=== PATIENT | male | born 1955 | race Caucasian/White ===

== ENCOUNTER 2016-11-12 07:09 | Day surgery (SDC) | payer OTHER ==
[~2016-11-12] VITALS: Ht 180.3 cm; Wt 100.9 kg
[~2016-11-12 07:09] MED LIST: 1-ME1LIQ PO; ATENOLO PO; ATOR40TA49 PO; BD I SC; CHLOR PO; COZA100T PO; EYE VITAMIN PO; FLEX10TA OR; GEMF600T PO; GLUC10TA3 PO; GLUCTES27 XX; LANTUSP SQ; LIPI40TA PO; METF-324 PO; TRAM50TA PO; VITA10004 PO
[2016-11-12 07:35] VITALS: BP 157/83; PULSE 80; RESP 20; TEMP 97.7; O2SAT 100
[2016-11-12] MEDS ORDERED: SODIUM CHLORIDE 0.9% 1000 ML IV SCH (07:45)
[2016-11-12] MEDS ORDERED: VANCOMYCIN 1000 MG/NS 250 ML - implanted port/tunneled catheter IV SCH ×2 (07:45)
[2016-11-12] MEDS ORDERED: LANTUS2P SQ (07:54)
[2016-11-12] MEDS ORDERED: TRAM50TA PO (07:54)
[2016-11-12] MEDS ORDERED: METF1000 PO (07:54)
[2016-11-12] MEDS ORDERED: LEVO50TA4 PO (07:54)
[2016-11-12] MEDS ORDERED: CYAN100025 PO (07:54)
[2016-11-12] MEDS ORDERED: OMEP20TA PO (07:54)
[2016-11-12] MEDS ORDERED: AMLO10TA2 PO (07:54)
[2016-11-12] MEDS ORDERED: VITA100064 PO (07:54)
[2016-11-12] MEDS ORDERED: ATOR40TA16 PO (07:54)
[2016-11-12] MEDS ORDERED: GLIP10TA6 PO (07:54)
[2016-11-12] MEDS ORDERED: LOSA100T PO (07:54)
[2016-11-12] MEDS ORDERED: LIDOCAINE 1%/EPINEPHrine 1:100,000 SOLN 20 ML VIAL ONE (08:52)
[2016-11-12] MEDS ORDERED: MIDAZOLAM HCL 5 MG/5 ML VIAL ONE (09:04)
[2016-11-12] MEDS ORDERED: fentaNYL CITRATE 250 MCG/5 ML AMP ONE (09:05)
[2016-11-12 09:45] VITALS: BP 132/72; PULSE 80; RESP 16; TEMP 97.6; O2SAT 94
[2016-11-12] MEDS ORDERED: SODIUM CHLORIDE 0.9% FLUSH 10 ML FLUSH IVF PRN (09:45)
--- NOTE | 2016-11-12 09:45 | PD.RAD ---
Post Procedure Progress Note Pre Procedure Diagnosis: (1) Squamous cell carcinoma (2) Parotid mass Post Procedure Diagnosis: (1) Parotid mass (2) Squamous cell carcinoma Procedure Date: Nov 12, 2016 Supervising Radiologist: Escobar Joiner Proceduralist/Assist: Kang Pompa RT(R), Other Anesthesia: Conscious Sedation Plan of Activity Patient to Unit: ROPU Patient Condition: Good Additional Comments: Right IJ port placed with tip at ACJ. See PACS Report for procedural detail/treatment Escobar Joiner MD Nov 12, 2016 09:44
[2016-11-12 10:00] VITALS: BP 116/70; PULSE 78; RESP 18; O2SAT 95
[2016-11-12 10:30] VITALS: BP 136/81; PULSE 76; RESP 20; O2SAT 99
--- NOTE | 2016-11-12 10:58 | RADRPT ---
EXAM DATE/TIME: 11/12/2016 09:14 [facility] COMPARISON: No previous studies available for comparison. INDICATIONS : Patient presents with parotid gland cancer in need of port placement for chemotherapy treatment. MEDICAL HISTORY : VT CAD HTN DM Hx of smoking Hep C SURGICAL HISTORY : Appy Liver biopsy ENCOUNTER: Initial ACUITY: 1 month PAIN SCORE: 0/10 LOCATION: N/A FLUORO TIME: 0.2 minutes IMAGE SERIES: 0 SEDATION TIME: 30 minutes ACCESS: Right internal jugular vein SEDATION: 1.) 3 mg midazolam (Versed) IV 2.) 150 mcg fentanyl (Sublimaze) IV Prophylactic antibiotics were administered with appropriate pre-procedure timing. Vancomycin within 2 hours of procedure, Ancef (or alternative) within 1 hour of procedure. DEVICE: 1. 8 Romanian single lumen Smart port CT w/ vortex PROCEDURE : 1. Continuous pulse oximetry and EKG monitoring. 2. Intravenous conscious sedation. 3. Ultrasound guidance for venous access. 4. Fluoroscopic guided implantable central venous port placement. The patient was placed supine. The neck was prepped in sterile fashion. Full sterile technique was u sed, including cap, mask, sterile gloves and gown, and a large sterile sheet. Hand hygiene and 2% ch lorhexidine Betadine was utilized per protocol for cutaneous antisepsis with appropriate dry time for site. The skin and subcutaneous tissues were infiltrated with local anesthetic solution. Under direct ultrasound guidance, central venous access was accomplished in the targeted vessel. The ultrasound images depicting access guidance were stored and saved to PACS for permanent record. A s ubcutaneous pocket was created using blunt dissection. The port was introduced to the pocket. The c atheter tubing was fed through a subcutaneous tunnel to the venotomy site. The catheter tubing was c ut to a suitable length and then was introduced through a valved Peel-Away sheath and positioned with catheter tubing tip at the cavo-atrial junction level. The pocket incision was closed with subcutic ular Vicryl suture. Steri-Strips were applied. The port was flushed and locked with heparin solutio n per protocol. Sterile dressing was applied to the site. The patient tolerated the procedure well. Conscious sedation was performed with the prescribed dosages and duration as above in the presence of an independent trained radiology nurse to assist in the monitoring of the patient. EKG and oximetry remained stable throughout the procedure. The patient tolerated the procedure well and there were no complications. The patient was sent to post anesthesia recovery in stable condition. CONCLUSION: Uncomplicated ultrasound and fluoroscopic guided implanted central venous port catheter placement as described in detail above. An 8 Romanian Power port was placed. Escobar Joiner MD on November 12, 2016 at 10:53 Board Certified Radiologist. This report was verified electronically.
[2016-11-12 11:00] VITALS: BP 122/73; PULSE 80; RESP 22; O2SAT 98
== END 2016-11-12 12:31 | disposition home or self-care (01) ==
LOC: HROP 07:09 → HRIP 07:09 → HROP 12:31
PROVIDERS: ATTEND Internal Medicine
DX: C07 Malignant neoplasm of parotid gland (principal)
CPT/HCPCS: 36561; 76937; 77001; 99152; 99153; C1788; C1894; J1642; J2250; J3010; J3370; J7030; J7050

== ENCOUNTER 2016-11-29 23:36 | Inpatient (IN) | payer OTHER, MEDICARE ==
[~2016-11-29] VITALS: Ht 180.3 cm; Wt 92.4 kg
[~2016-11-29 23:36] MED LIST changes: -1-ME1LIQ PO; +AMLO10TA2 PO; +ATOR40TA16 PO; -ATOR40TA49 PO; -BD I SC; -COZA100T PO; +CYAN100025 PO; -FLEX10TA OR; -GEMF600T PO; +GLIP10TA6 PO; -GLUC10TA3 PO; -GLUCTES27 XX; +LANTUS2P SQ; -LANTUSP SQ; +LEVO50TA4 PO; -LIPI40TA PO; +LOSA100T PO; -METF-324 PO; +METF1000 PO; +OMEP20TA PO; -VITA10004 PO; +VITA100064 PO
[2016-11-29 23:40] VITALS: BP 96/52; PULSE 90; RESP 20; TEMP 98.9; O2SAT 93
[2016-11-29 23:50] VITALS: RESP 22; O2SAT 93
[2016-11-30] VITALS (19 sets, daily range): BP systolic 83–120; BP diastolic 55–81; PULSE 80–114; RESP 18–30; TEMP 98.1–99.1; O2SAT 88–100
[2016-11-30] MEDS ORDERED: SODIUM CHLOR 0.9% 1000 ML INJ 1,000 ML IV ONE
--- NOTE | 2016-11-30 00:04 | PD ---
HPI Chief Complaint: Abdominal Pain Time Seen by Provider: 23:41 Travel History International Travel<30 days: No Contact w/Intl Traveler<30days: No Traveled to known affect area: No History of Present Illness HPI Unfortunate 61-year-old male with history of parotid cancer here with complaint of abdominal pain. Patient states that approximately one month ago he was diagnosed with a mass at the lower esophagus/upper stomach, GE junction. He has not had any further workup of this, but he presumes it is metastatic spread from his parotid cancer. He is not currently undergoing any chemotherapy. Patient states that pain in the epigastrium has been progressively worsening over the last several weeks. He has been having dysphasia and has not been able to tolerate anything to eat or drink now for the last 3 days. Patient is presyncopal upon standing, states that his legs give out underneath him when he walks. Per EMS patient extremely dry, febrile to 101, and hypotensive in the 80s and 90s. He was given 1500 mL normal saline bolus en route. PFSH Past Medical History Cancer: Yes (SCC LEFT SIDE OF FACE, esophageal) Cardiovascular Problems: Yes ([place]) High Cholesterol: Yes Coronary Artery Disease: Yes Diabetes: Yes Patient Takes Glucophage: Yes Diminished Hearing: No Endocrine: No Hepatitis: Yes (C [place] 1996) Hiatal Hernia: No Hypertension: Yes Immune Disorder: No Implanted Vascular Access Dvce: Yes (port r subclavian) Medical other: Yes (ARTHRITIS, CIRRHOSIS 1996) Musculoskeletal: No Neurologic: No Reproductive: No Respiratory: Yes (SOB) Immunizations Current: No Myocardial Infarction: Yes Thyroid Disease: No Triglycerides - High: Yes Past Surgical History Abdominal Surgery: Yes (APPEND., LIVER BIOPSY) Appendectomy: Yes Cardiac Surgery: No Ear Surgery: No Endocrine Surgery: No Eye Surgery: No Genitourinary Surgery: No Oral Surgery: No Pacemaker: No Thoracic Surgery: No Social History Alcohol Use: Yes (few beers few nights a week per pt) Tobacco Use: No (quit 1 week ago) Substance Use: No Allergies-Medications (Allergen,Severity, Reaction): Coded Allergies: Penicillin (Verified Allergy, Mild, Hives, 11/12/16) Reported Meds & Prescriptions Reported Meds & Active Scripts Active [atenolo/-50] 1 Tab PO DAILY Reported B-12 (Cyanocobalamin) 1,000 Mcg Subl 1,000 Mcg PO DAILY Vitamin D3 (Cholecalciferol) 1,000 Unit Tab 1,000 Units PO DAILY Tramadol (Tramadol HCl) 50 Mg Tab 50 Mg PO Q8H PRN Omeprazole 20 Mg Tab 20 Mg PO DAILY Levothyroxine (Levothyroxine Sodium) 50 Mcg Tab 50 Mcg PO DAILY Atorvastatin (Atorvastatin Calcium) 40 Mg Tab 40 Mg PO HS Amlodipine (Amlodipine Besylate) 10 Mg Tab 10 Mg PO DAILY Losartan (Losartan Potassium) 100 Mg Tab 100 Mg PO DAILY Metformin (Metformin HCl) 1,000 Mg Tab 1,000 Mg PO BIDPC With meals Glipizide 10 Mg Tab 20 Mg PO BIDAC Take 30 minutes before a meal Lantus Inj (Insulin Glargine) 1,000 Unit/10 Ml Vial 40 Units SQ HS [Eye Vitamin] 1 Tab PO DAILY Review of Systems Except as stated in HPI: all other systems reviewed are Neg Physical Exam Narrative GENERAL: Well-appearing male in mild respiratory distress SKIN: Focused skin assessment warm/dry. HEAD: Normocephalic. EYES: No scleral icterus. No injection or drainage. ENT: Left sided parotid cancer and associated deformity to the ear. No nasal bleeding or discharge. Mucous membranes extremely dry NECK: Supple CARDIOVASCULAR: Regular rate and rhythm. No murmur appreciated. Hypotensive with systolics in the 90s. RESPIRATORY: Mild respiratory distress with poor air movement and decreased breath sounds throughout GASTROINTESTINAL: Abdomen soft, epigastric tenderness to palpation without rebound or guarding MUSCULOSKELETAL: No obvious deformities. No edema. NEUROLOGICAL: Awake and alert. Normal speech. PSYCHIATRIC: Appropriate mood and affect; insight and judgment normal. Data Data Last Documented VS Vital Signs Date Time Temp Pulse Resp B/P Pulse Ox O2 Delivery O2 Flow Rate FiO2 11/29/16 23:50 22 93 Room Air 11/29/16 23:40 98.9 90 96/52 Orders Electrocardiogram (11/29/16 23:48) Complete Blood Count With Diff (11/29/16 23:48) Comprehensive Metabolic Panel (11/29/16 23:48) Lactic Acid Sepsis Protocol (11/29/16 23:48) Lipase (11/29/16 23:48) Troponin I (11/29/16 23:48) Urinalysis - C+S If Indicated (11/29/16 23:48) Blood Culture (11/29/16 23:48) Ecg Monitoring (11/29/16 23:48) Iv Access Insert/Monitor (11/29/16 23:48) Oximetry (11/29/16 23:48) Ct Pulmonary Angiogram (11/29/16 23:48) Sodium Chlor 0.9% 1000 Ml Inj (Ns 1000 M (11/30/16 00:00) Ct Abd/Pel W Iv Contrast(Rout) (11/29/16 23:56) Morphine Inj (Morphine Inj) (11/30/16 01:00) Potassium Chloride Eff (K-Lyte Cl Eff) (11/30/16 01:30) Iohexol 350 Inj (Omnipaque 350 Inj) (11/30/16 01:37) Urine Culture (11/30/16 01:15) Labs Laboratory Tests Test 11/30/16 11/30/16 11/30/16 00:00 00:06 01:15 White Blood Count 11.6 TH/MM3 Red Blood Count 3.46 MIL/MM3 Hemoglobin 9.7 GM/DL Hematocrit 28.7 % Mean Corpuscular Volume 82.9 FL Mean Corpuscular Hemoglobin 28.2 PG Mean Corpuscular Hemoglobin 34.0 % Concent Red Cell Distribution Width 15.3 % Platelet Count 106 TH/MM3 Mean Platelet Volume 9.5 FL Neutrophils (%) (Auto) 83.3 % Lymphocytes (%) (Auto) 9.0 % Monocytes (%) (Auto) 7.6 % Eosinophils (%) (Auto) 0.0 % Basophils (%) (Auto) 0.1 % Neutrophils # (Auto) 9.7 TH/MM3 Lymphocytes # (Auto) 1.0 TH/MM3 Monocytes # (Auto) 0.9 TH/MM3 Eosinophils # (Auto) 0.0 TH/MM3 Basophils # (Auto) 0.0 TH/MM3 CBC Comment DIFF FINAL Differential Comment Sodium Level 134 MEQ/L Potassium Level 2.7 MEQ/L Chloride Level 98 MEQ/L Carbon Dioxide Level 22.4 MEQ/L Anion Gap 14 MEQ/L Blood Urea Nitrogen 20 MG/DL Creatinine 1.64 MG/DL Estimat Glomerular Filtration 43 ML/MIN Rate Random Glucose 50 MG/DL Calcium Level 7.3 MG/DL Protein Corrected Calcium 7.7 MG/DL Total Bilirubin 0.5 MG/DL Aspartate Amino Transf 37 U/L (AST/SGOT) Alanine Aminotransferase 30 U/L (ALT/SGPT) Alkaline Phosphatase 67 U/L Troponin I 3.12 NG/ML Total Protein 6.4 GM/DL Albumin 2.6 GM/DL Lipase 150 U/L Lactic Acid Level 3.5 mmol/L Urine Color YELLOW Urine Turbidity HAZY Urine pH 6.0 Urine Specific [place] 1.017 Urine Protein 100 mg/dL Urine Glucose (UA) NEG mg/dL Urine Ketones NEG mg/dL Urine Occult Blood TRACE Urine Nitrite NEG Urine Bilirubin NEG Urine Urobilinogen LESS THAN 2.0 MG/DL Urine Leukocyte Esterase NEG Urine RBC 1 /hpf Urine WBC 7 /hpf Urine Squamous Epithelial <1 /hpf Cells Urine Hyaline Casts 3 /lpf Urine Mucus FEW /lpf Microscopic Urinalysis Comment CATH-CULTURE IND MDM Medical Decision Making Medical Screen Exam Complete: Yes Emergency Medical Condition: Yes Medical Record Reviewed: Yes Differential Diagnosis 61-year-old male with parotid cancer and mass diagnosed at the GE junction, here with progressive abdominal pain in the epigastric region and dysphasia times several weeks worsening over the last 3 days. Febrile per EMS but not febrile here. Patient was however hypotensive and mucous membranes are extremely dry. Differential includes dehydration, renal insufficiency/failure, electrolyte abnormality, sepsis, metastatic spread, esophageal stricture, UTI, bacteremia. Patient denies any dyspnea, but is certainly dyspneic on exam. History of smoking, states he quit one week ago. No wheezing noted that with his underlying cancer concern for pulmonary embolism as he is also borderline hypoxic. Narrative Course Patient placed on monitor, IV established and blood obtained. Given 1 L normal saline bolus to add to the 1500 mL already received per EMS, 4 mg morphine. Twelve-lead EKG showed sinus rhythm without notable ST or T-wave abnormalities and normal intervals. CBC, CMP, lipase, troponin, lactate, urinalysis and blood cultures notable for hemoglobin 9.7. This is down from 15.7 but that was obtained 3 years ago. I do not have a more recent prior with which to compare. Patient denies any bleeding, dark tarry stools. Potassium 2.7, replaced a 75 mEq orally. BUN 20, cranial 1.64. Lactate 3.5. Patient empirically covered with vancomycin and Zosyn. Troponin elevated at 3.12, again no EKG changes. CT pulmonary angiogram and CT of the abdomen and pelvis showed no evidence of PE. Abnormal distal esophagus consistent with carcinoma. Patient will be admitted for further management, potential endoscopy versus G-tube placement as he is not able to tolerate any food or liquids. Diagnosis Primary Impression: Esophageal carcinoma Additional Impressions: Anemia Qualified Code: D64.9 - Anemia, unspecified type Hypokalemia Renal insufficiency Lactic acidosis Elevated troponin Dehydration Admitting Information Admitting Physician Requests: Admit Rosanna Francisco MD Nov 30, 2016 00:04
[2016-11-30 00:45] LABS: AUTOMATED NEUTROPHIL # 9.7 TH/MM3 (1.8-7.7); BASOPHIL % 0.1 % (0.0-2.0); HEMATOCRIT 28.7 % (39.0-51.0); HEMO FLAGS DIFF FINAL; MEAN CELL VOLUME 82.9 FL (80.0-100.0); MEAN CORPUSCULAR HEMOGLOBIN 28.2 PG (27.0-34.0); MONO % 7.6 % (0.0-8.0); NEUT % 83.3 % (16.0-70.0); PLATELET COUNT 106 TH/MM3 (150-450); RED BLOOD COUNT 3.46 MIL/MM3 (4.50-5.90); RED CELL DISTRIBUTION WIDTH 15.3 % (11.6-17.2); WHITE BLOOD COUNT 11.6 TH/MM3 (4.0-11.0)
[2016-11-30] MEDS ORDERED: MORPHINE SULFATE 8 MG/ML INJ IV PUSH ONE (01:00)
[2016-11-30 01:18] LABS: BICARBONATE 22.4 MEQ/L (21.0-32.0); CALCIUM-PROTEIN CORRECTED 7.7 MG/DL (8.5-10.1); TOTAL BILIRUBIN ADULT 0.5 MG/DL (0.2-1.0)
[2016-11-30 01:20] LABS: POTASSIUM 2.7 MEQ/L (3.5-5.1)
[2016-11-30] MEDS ORDERED: POTASSIUM CHLORIDE 25 MEQ EFFERVESCENT TAB PO ONE (01:30)
[2016-11-30] MEDS ORDERED: IOHEXOL 350 MG/ML 10 ML VIAL (for RAD DIAG) IV ONE (01:37)
[2016-11-30 01:39] LABS: BLOOD, URINE TRACE (NEG); COMMENT (UR) CATH-CULTURE IND; CULTURE IF INDICATED CATH CULTURE IND; GLUCOSE,URINE NEG (NEG); HYALINE CAST, URINE 3 /lpf (RARE); KETONE, URINE NEG (NEG); MUCUS URINE FEW /lpf (OCC); NITRITE,URINE NEG (NEG); SQUAMOUS EPITHELIAL CELL URINE <1 /hpf (0-5); URINE COLOR YELLOW (YELLW/STRAW)
--- NOTE | 2016-11-30 02:00 | RADRPT ---
EXAM DATE/TIME: 11/30/2016 01:35 [facility] COMPARISON: CT ABDOMEN & PELVIS W CONTRAST, November 30, 2016, 1:35. INDICATIONS : Chest pain; rule out pulmonary embolus. IV CONTRAST: 75 cc Omnipaque 350 (iohexol) IV ; Cumulative dose for multiple exams. RADIATION DOSE: 23.50 CTDIvol (mGy) MEDICAL HISTORY : Carcinoma, esophageal. Myocardial infarction. Hepatitis C.Cirrhosis, Hypertension SURGICAL HISTORY : Appendectomy. ENCOUNTER: Initial ACUITY: 1 day PAIN SCALE: 3/10 LOCATION: chest TECHNIQUE: Volumetric scanning of the chest was performed using a pulmonary embolism protocol MIP images were re constructed. Using automated exposure control and adjustment of the mA and/or kV according to patien t size, radiation dose was kept as low as reasonably achievable to obtain optimal diagnostic quality images. DICOM format image data is available electronically for review and comparison. Follow-up recommendations for incidentally detected pulmonary nodules are based at a minimum on nodul e size and patient risk factors according to Fleischner Society Guidelines. FINDINGS: There are mild linear atelectatic changes versus scarring in the lower lobes. There is no consolidati on or effusion. No adenopathy. There is no evidence for pulmonary embolism. The patient has a history of esophageal carcinoma and there is marked abnormal eccentric circumferential soft tissue but thick ening of the mid to distal esophagus with luminal narrowing seen best on axial image 81. This would b e consistent with the patient's carcinoma. CONCLUSION: 1. No evidence for pulmonary embolism or pneumonia. 2. Abnormal appearance of the esophagus with and soft tissue consistent with the history of carcinoma . Erik Simon MD on November 30, 2016 at 1:56 Board Certified Radiologist. This report was verified electronically.
--- NOTE | 2016-11-30 02:02 | RADRPT ---
EXAM DATE/TIME: 11/30/2016 01:35 [facility] COMPARISON: CT PULMONARY ANGIOGRAM, November 30, 2016, 1:35. INDICATIONS : Abdominal pain; history of esophageal cancer. IV CONTRAST: 75 cc Omnipaque 350 (iohexol) IV ; Cumulative dose for multiple exams. ORAL CONTRAST: No oral contrast ingested. RADIATION DOSE: 16.19 CTDIvol (mGy) MEDICAL HISTORY : Carcinoma, esophageal. Myocardial infarction. Hepatitis C.Cirrhosis, Hypertension SURGICAL HISTORY : Appendectomy. ENCOUNTER: Initial ACUITY: 1 day PAIN SCALE: 5/10 LOCATION: abdomen TECHNIQUE: Volumetric scanning of the abdomen and pelvis was performed. Using automated exposure control and ad justment of the mA and/or kV according to patient size, radiation dose was kept as low as reasonably achievable to obtain optimal diagnostic quality images. DICOM format image data is available electro nically for review and comparison. FINDINGS: There is linear scarring versus atelectasis at the bases. Osseous structures demonstrate degenerative changes of the spine. There is marked eccentric soft tissue thickening of the distal esophagus with prominent soft tissue measuring 2.7 x 4.5 cm in AP and transverse dimension on image 9 posterior esop hagus with marked luminal narrowing. There is noted extending to the esophagogastric junction and con sistent with the patient's esophageal carcinoma. Slightly nodular hepatic contour consistent with his tory of cirrhosis. Mild splenomegaly at 14 cm. Pancreas, gallbladder, kidneys, adrenal glands are unr emarkable. Atherosclerotic calcification of the aorta and iliac vessels. Prostatic calcifications are noted. Urinary bladder unremarkable. A moderate amount of stool in the colon is present without evid ence of obstruction. There is no adenopathy or aneurysm. Atherosclerotic calcifications of the aorta are present. CONCLUSION: 1. Markedly abnormal appearance of the distal esophagus consistent with the history of esophageal car cinoma. 2. Atherosclerotic calcifications of the aorta and iliac vessels. 3. Cirrhotic appearance to the liver with a mildly nodular contour present. Erik Simon MD on November 30, 2016 at 1:59 Board Certified Radiologist. This report was verified electronically.
[2016-11-30] MEDS ORDERED: SODIUM CHLOR 0.9% 1000 ML INJ 1,000 ML IV SCH ×2 (02:33→13:42)
[2016-11-30 02:40] LABS: LACTIC ACID GHOST NOT REPORTABLE
[2016-11-30] MEDS ORDERED: SENNOSIDES 8.6 MG TAB PO PRN (02:45)
[2016-11-30] MEDS ORDERED: MAGNESIUM HYDROXIDE SUSP 30 ML CUP PO PRN (02:45)
[2016-11-30] MEDS ORDERED: CALCIUM GLUCONATE 10% 1 GM/10 ML VIAL IV PUSH ONE (02:45)
[2016-11-30] MEDS ORDERED: ONDANSETRON HCL 4 MG/2 ML VIAL IVP PRN (02:45)
[2016-11-30] MEDS ORDERED: LACTULOSE SYRUP 20 GM/30 ML CUP PO PRN (02:45)
[2016-11-30] MEDS ORDERED: BISACODYL 10 MG SUPP RECTAL PRN (02:45)
[2016-11-30] MEDS ORDERED: ACETAMINOPHEN 325 MG TAB PO PRN (02:45)
--- NOTE | 2016-11-30 03:53 | HHI.HP ---
[facility] Primary [facility] Physician Landon Abad MD Admission Diagnosis elevated trop, dysphagia, GE carcinoma Diagnoses: (1) Intractable abdominal pain Diagnosis: Principal (2) Esophageal carcinoma Diagnosis: Principal (3) SCC (squamous cell carcinoma) Diagnosis: Principal (4) Elevated troponin Diagnosis: Principal (5) Renal insufficiency Diagnosis: Principal (6) Dehydration Diagnosis: Principal (7) Lactic acidosis Diagnosis: Principal (8) Hypokalemia Diagnosis: Principal (9) Tobacco abuse Diagnosis: Principal (10) DM (diabetes mellitus) Diagnosis: Principal Travel History International Travel<30 Days: No Contact w/Intl Traveler <30 Da: No Traveled to Known Affected Are: No History of Present Illness This is a 61-year-old male with a PMH of HTN, Hyperlipidemia, CAD, DM, Squamous Cell CA of Parotid Gland and Esophageal Mass who was brought to the ER by EMS with complaints of abdominal pain x3 wks in addition to difficulty taking PO. Pt significantly poor historian, unable to tell me which physicians he follows w / or what his plan of care is regarding underlying CA. Believes he is supposed to start Chemo/Radiation but is unsure when, doesn't recall next follow up appointment. Per review of records, pt evaluated by Dr. 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 Roberson. Also underwent PET CT w/ evidence of hypermetabolic esophageal mass and referral to GI for EGD/EUS. Per patient, he' s had progressive difficulty swallowing x3 wks w/ worsening abdominal pain. Unable to swallow solids at this time, liquids ok. Denies fever, chills, diarrhea, chest pain or cough. On EMS arrival, pt noted to be hypotensive w/ BP 80's, s/p IVF w/ improvement in BP, Temp 101. On arrival, BP 96 or 52, HR 90 , O2 sat 93% on RA, Afebrile. WBC 11.6. Platelets 106, previously 100 on . K+ 2.7. Creatinine 1.64, previously 0.58 on 08/29/13. Lactic Acid 3.5. Trop 3.12. EKG w/ no acute ischemia. U/a negative. CT Abd/Pelvis w/ markedly abnormal appearance distal esophagus consistent with history of esophageal CA. CTA Pulm negative for PE. Review of Systems Except as stated in HPI: all other systems reviewed are Neg ROS: 14 point review of systems otherwise negative. Past Family Social History Past Medical History PMH: HTN, Hyperlipidemia, CAD, DM, Squamous Cell CA of Parotid Gland and Esophageal Mass Past Surgical History PAST SURGICAL HISTORY: Appendectomy, Liver Biopsy, Port Placement Allergies: Coded Allergies: Penicillin (Verified Allergy, Mild, Hives, 11/12/16) Family History PAST FAMILY HISTORY: Reviewed. No h/o DM or CAD Social History PAST SOCIAL HISTORY: Drinks occasionally. Smokes 1ppd. Negative for drugs. Physical Exam Vital Signs Vital Signs Date Time Temp Pulse Resp B/P Pulse Ox O2 Delivery O2 Flow Rate FiO2 11/30/16 02:09 80 18 101/55 97 Room Air 11/29/16 23:50 22 93 Room Air 11/29/16 23:40 98.9 90 20 96/52 93 Physical Exam PE: GENERAL: Middle-aged white male in no acute distress. HEENT: PERRLA, EOMI. No scleral icterus or conjunctival pallor. No lid lag or facial droop. Left facial deformity CARDIOVASCULAR: Regular rate and rhythm. No obvious murmurs to auscultation. No chest tenderness to palpation. RESPIRATORY: No obvious rhonchi or wheezing. Clear to auscultation. Breath sounds equal bilaterally. GASTROINTESTINAL: Abdomen soft, epigastric tenderness to palpation, nondistended. BS normal. MUSCULOSKELETAL: Extremities without clubbing, cyanosis, or edema. No obvious deformities. NEUROLOGICAL: Awake, alert and oriented x4. No focal neurologic deficits. Moving both upper and lower extremities spontaneously. Laboratory Laboratory Tests Test 11/30/16 11/30/16 11/30/16 00:00 00:06 01:15 White Blood Count 11.6 Red Blood Count 3.46 Hemoglobin 9.7 Hematocrit 28.7 Mean Corpuscular Volume 82.9 Mean Corpuscular Hemoglobin 28.2 Mean Corpuscular Hemoglobin 34.0 Concent Red Cell Distribution Width 15.3 Platelet Count 106 Mean Platelet Volume 9.5 Neutrophils (%) (Auto) 83.3 Lymphocytes (%) (Auto) 9.0 Monocytes (%) (Auto) 7.6 Eosinophils (%) (Auto) 0.0 Basophils (%) (Auto) 0.1 Neutrophils # (Auto) 9.7 Lymphocytes # (Auto) 1.0 Monocytes # (Auto) 0.9 Eosinophils # (Auto) 0.0 Basophils # (Auto) 0.0 CBC Comment DIFF FINAL Differential Comment Sodium Level 134 Potassium Level 2.7 Chloride Level 98 Carbon Dioxide Level 22.4 Anion Gap 14 Blood Urea Nitrogen 20 Creatinine 1.64 Estimat Glomerular Filtration 43 Rate Random Glucose 50 Calcium Level 7.3 Protein Corrected Calcium 7.7 Total Bilirubin 0.5 Aspartate Amino Transf 37 (AST/SGOT) Alanine Aminotransferase 30 (ALT/SGPT) Alkaline Phosphatase 67 Troponin I 3.12 Total Protein 6.4 Albumin 2.6 Lipase 150 Lactic Acid Level 3.5 Urine Color YELLOW Urine Turbidity HAZY Urine pH 6.0 Urine Specific [place] 1.017 Urine Protein 100 Urine Glucose (UA) NEG Urine Ketones NEG Urine Occult Blood TRACE Urine Nitrite NEG Urine Bilirubin NEG Urine Urobilinogen LESS THAN 2.0 Urine Leukocyte Esterase NEG Urine RBC 1 Urine WBC 7 Urine Squamous Epithelial <1 Cells Urine Hyaline Casts 3 Urine Mucus FEW Microscopic Urinalysis Comment CATH-CULTURE IND Date/Time Procedure Status Source Growth 11/30/16 01:15 Urine Culture Received Urine Catheterized Urine Pending 11/30/16 00:05 Aerobic Blood Culture Received Blood Peripheral Pending 11/30/16 00:05 Anaerobic Blood Culture Received Blood Peripheral Pending Result Diagram: 11/30/16 0000 11/30/16 0000 Assessment and Plan Problem List: (1) Intractable abdominal pain ICD Code: R10.9 Status: Acute (2) Esophageal carcinoma ICD Code: C15.9 Status: Acute (3) SCC (squamous cell carcinoma) ICD Code: C44.92 Status: Acute (4) Hypokalemia ICD Code: E87.6 Status: Acute (5) Lactic acidosis ICD Code: E87.2 Status: Acute (6) Renal insufficiency ICD Code: N28.9 Status: Acute (7) Elevated troponin ICD Code: R74.8 Status: Acute (8) DM (diabetes mellitus) ICD Code: E11.9 Status: Acute (9) Tobacco abuse ICD Code: Z72.0 Status: Acute Assessment and Plan A/P: 1. Intractable Abd Pain: x3 wks, w/ associated dysphagia, unable to swallow solids, likely secondary to recently diagnosed esophageal mass w/ suspected malignancy. CT Abd/Pelvis w/ markedly abnormal appearance of the distal esophagus consistent w/ h/o esophageal carcinoma, images reviewed by me. Diet as tolerated, may need to consider PEG tube placement in light of underlying CA. Protonix IV. Analgesics/antiemetics as needed. 2. SCC: w/ Parotid Gland involvement, s/p parotidectomy and neck dissection at [facility], now w/ recurrence, s/p eval by Dr. Bell and Dr. Roberson for concurrent Chemo/Radiation, also pending dental extraction. 3. Esophageal CA: Outpatient PET CT w/ findings worrisome for Esophageal CA, referred to GI for EGD/EUS. Follows w/ Dr. Bell, will consult for further recommendations. 4. Elevated Trop: Trop 3.13, EKG w/ no acute ischemia, no c/o chest pain, only mild SOB. CTA Pulm negative for PE, images reviewed by me. Check serial cardiac enzymes, Cardiology for further eval. Hold anticoagulation at this time in light of thrombocytopenia and esophageal mass w/ high risk for bleed. Hold B-gutierrez in light of hypotension. 5. Lactic Acidosis: Lactate 3.5, repeat 2.7, likely secondary to dehydration from decreased PO intake, no evidence of Sepsis. IVF for hydration. 6. Hypokalemia: K+ 2.7, s/p replacement in ER, will recheck and replace as needed. 7. Renal Insufficiency: CLARA. Creatinine 1.64, previously 0.58 on 08/29/13. U/ a w/ mild bacteriuria. IVF for hydration, repeat labs in am. 8. DM: Sliding scale w/ Accu-Cheks. Hold Metformin in light of renal insufficiency. Hold Glipizide/Insulin in light of decreased PO intake. 9. Tobacco Abuse: Pt counselled. Ativan/NicoDerm prn if needed. 10. DVT Prophylaxis: SCD/Teds. 11. Social work for d/c planning as needed. 12. Case discussed w/ ER physician at length. Physician Certification 2 Midnight Certification Type: Admission for Inpatient Services Order for Inpatient Services The services are ordered in accordance with Medicare regulations or non- Medicare payer requirements, as applicable. In the case of services not specified as inpatient-only, they are appropriately provided as inpatient services in accordance with the 2-midnight benchmark. Estimated LOS (days): 2 days is the estimated time the patient will need to remain in the hospital, assuming treatment plan goals are met and no additional complications. Post-Hospital Plan: Not yet determined Ericka Reece MD Nov 30, 2016 03:53
[2016-11-30] MEDS ORDERED: CHLORHEXIDINE GLUCONATE 2 % 1 PACK (2 CLOTHS)(extra cloths) TOPICAL PRN (05:15)
[2016-11-30] MEDS: PANTOPRAZOLE SODIUM 40 MG VIAL IV PUSH SCH ×2 (08:30→21:49)
[2016-11-30] MEDS: SODIUM CHLORIDE 0.9% FLUSH 10 ML FLUSH IV FLUSH SCH ×3 (08:30→21:49)
[2016-11-30] MEDS: DOCUSATE SODIUM 50 MG/SENNA 8.6 MG TAB PO SCH ×2 (08:30→21:00)
--- NOTE | 2016-11-30 11:11 | MB ---
cc: MINNA PRADO MD DATE OF CONSULTATION: 11/30/2016 REASON FOR CONSULTATION Elevated troponin. HISTORY OF PRESENT ILLNESS The patient is a pleasant 61-year-old gentleman who presents with weakness and multiple falls. He does have a history of head and neck cancer but the patient is unclear about the details of ongoing treatment or prognosis. His initial labs are notable for potassium of 2.7, creatinine 1.64 and a troponin of 3.12, this has since gone up to 12.3. I was not informed of the patient's significant elevated troponins until I arrived at bedside. The patient does have slight lateral ST elevation seen on the monitor and when I noticed this I asked him if he had any chest pain. He does admit to having a fairly vague "chest tightness" in the left upper chest which he attributes to being in bed for the duration of his hospitalization thus far. He says that this is a new symptom since he arrived at the hospital yesterday night. He does appear relatively comfortable and describes his pain as fairly mild. He denies other symptoms such as shortness of breath, lightheaded, dizziness. He does have difficulty with eating but is able to swallow pills. PAST MEDICAL HISTORY 1. Hypertension. 2. Hyperlipidemia. 3. Chart history of coronary artery disease, although the patient denies. 4. Diabetes. 5. Squamous cell cancer of the parotid gland. 6. Esophageal mass. CURRENT MEDICATIONS 1. Senna. 2. Colace. 3. Protonix 40 mg IV q. 12. ALLERGIES PENICILLIN. PHYSICAL EXAMINATION VITAL SIGNS: Afebrile, pulse 89, respiratory rate 24, BP 98/56, sating 98% on room air. GENERAL: Pleasant appearing gentleman, perhaps very mildly diaphoretic. NECK: No JVD. LUNGS: Clear to auscultation bilaterally. CARDIOVASCULAR: Regular rate and rhythm. No murmurs appreciated. ABDOMEN: Benign. EXTREMITIES: No edema. LABORATORY DATA Notable findings were detailed above. Also notable, white count 11.6, hematocrit 28.7, down from 45 and platelets 106. EKG On admission showed sinus rhythm with no significant ST or T-wave changes but the subsequent EKG did show very slight high lateral ST elevation concomitant with the patient's description of chest pain. ASSESSMENT I have discussed this at length with the patient and also with the maintainer central office, the challenge here is the patient's significant medical history including head and neck cancer, anemia, renal dysfunction. I will discuss the case further with interventional radiologist and determine whether it is appropriate to pursue an invasive aggressive course versus conservative medical therapy. Further recommendations will be based on his course. MD KATEY Foster/ORI /10:22 AM /10:53 AM
[2016-11-30] MEDS ORDERED: ASPIRIN 81 MG CHEW TAB PO ONE (12:00)
[2016-11-30] MEDS ORDERED: HEPARIN SODIUM - IV 10,000 UNITS/10 ML VIAL IV PRN ×2 (12:15)
[2016-11-30] MEDS ORDERED: HEPARIN 25,000 UNITS-D5W 250 ML - PREMIX IV SCH (12:15)
[2016-11-30] MEDS ORDERED: HEPARIN SODIUM - IV 10,000 UNITS/10 ML VIAL IV ONE (12:15)
[2016-11-30 12:30] LABS: HEMATOCRIT 30.1 % (39.0-51.0); MEAN CELL VOLUME 83.4 FL (80.0-100.0); MEAN CORPUSCULAR HEMOGLOBIN 27.9 PG (27.0-34.0); MEAN CORPUSCULAR HGB CONC 33.5 % (32.0-36.0); PLATELET COUNT 110 TH/MM3 (150-450); RED BLOOD COUNT 3.62 MIL/MM3 (4.50-5.90); RED CELL DISTRIBUTION WIDTH 15.3 % (11.6-17.2); REVIEW FLAG FINAL; WHITE BLOOD COUNT 10.5 TH/MM3 (4.0-11.0)
[2016-11-30] MEDS ORDERED: IOHEXOL 350 MG/ML 100 ML BTL (for Cath Lab) OTHER ONE (12:30)
[2016-11-30] MEDS ORDERED: MIDAZOLAM HCL 2 MG/2 ML VIAL ONE (12:36)
[2016-11-30] MEDS ORDERED: HEPARIN-NS/PF INJ 500 ML ONE (12:36)
[2016-11-30 12:40] LABS: APTT (PATIENT) 31.3 SEC (24.3-30.1); INTERNATIONAL NORMALIZED RATIO 1.2 RATIO; PROTHROMBIN TIME - PATIENT 12.8 SEC (9.8-11.6)
--- NOTE | 2016-11-30 12:51 | MB ---
cc: DARRYL MUSTAFA DATE OF CONSULTATION: 11/30/2016. REASON FOR CONSULTATION: Non-ST elevation DE. 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 He also admits to chest pain. On further evaluation, EKG showed S-T segments suggestive of myocardial injury. Cardiac markers trended up from 3.1 to 12 this morning. Thus, cardiology Dr. Quinonez was consulted for further recommendations. In addition, the patient had recurring chest pain this morning. He was started on heparin drip, aspirin, beta blockers and consulted to interventional cardiology for possible percutaneous coronary intervention. He denies fevers, chills, nausea, vomiting or diarrhea, shortness of breath, lightheadedness, dizziness. He reports difficulty with eating but he is able to swallow pills. REVIEW OF SYSTEMS: Negative except for what is mentioned in the history of present illness. PAST MEDICAL HISTORY: 1. Hypertension. 2. Hyperlipidemia. 3. Diabetes. 4. Esophageal mass. 5. Squamous cell carcinoma of the parathyroid gland. 6. Smoker. CARDIAC MEDICATIONS AT HOME: 1. Amlodipine 10 milligrams p.o. daily. 2. Lipitor 40 milligrams p.o. daily. 3. Losartan 100 milligrams p.o. daily. 4. Atenolol 50 milligrams p.o. daily. ALLERGIES: PENICILLIN. FAMILY HISTORY: Noncontributory. SOCIAL HISTORY: He quit smoking recently. He denies alcohol use or illicit drug use. PHYSICAL EXAMINATION: VITAL SIGNS: Temperature 98, respiratory rate 20, pulse 91, blood pressure 101/ 55, 02 saturation 97% 2 L NC. GENERAL: He is awake, alert and oriented times three complaining of mild chest pain. NECK: No jugular venous distention. LUNGS: Clear to auscultation bilaterally. No wheezes, rales or rhonchi. HEART: Regular rate and rhythm. There are no murmurs, rubs or gallops. ABDOMEN: Benign. EXTREMITIES: There is no cyanosis or edema. Pulses throughout. DATA: CBC: Hemoglobin 9.7, hematocrit 498 and platelet count 106,000. Chemistries: Sodium 134, potassium 2.7, BUN 20, creatinine 1.64. Troponin is 3.1 and 12.3. Lactic acid 2.5. Calcium 7.3. Urinalysis: There is protein. Microbiology pending. IMAGING STUDIES: Abdominal CT: There is a mass in the esophagus consistent with esophageal carcinoma. CT of the chest: There is no evidence of PE. ASSESSMENT: 61-year-old male with the above history and findings who presented with a non-S- T-elevation DE and past medical history significant for esophageal mass and head and neck cancer. According to Dr. Bell, who knows the patient well, the patient has a good prognosis > 1 year and he is awaiting to start chemotherapy and radiation. He currently remains hemodynamically stable but continues to complaint on chest discomfort despite medical therapy. I think at this time it would be reasonable to take him to the cardiac catheterization lab to assess coronary anatomy. The risks and benefits of left heart catheterization including but not limited to bleeding, infection, acute kidney injury, neurovascular trauma, emergent bypass surgery, stroke and have been explained to the patient. The patient understands the risks and is willing to proceed. Thank you for the opportunity to take part in the care of this patient. Further therapy to be determined. MD CINDY Benavidez/UZAIR /12:24 PM /12:46 PM VON
[2016-11-30] MEDS ORDERED: DEXTROSE 50% IN WATER 50 ML SYRINGE ONE (12:53)
--- NOTE | 2016-11-30 12:56 | EKG ---
Date Performed: 11/30/2016 Time Performed: 00:14:49 PTAGE: 61 years EKG: Sinus rhythm BORDERLINE LEFT AXIS DEVIATION Compared to prior tracing no significant change BORDERLINE ECG PREVIOUS TRACING : 09/11/2011 08.32 DOCTOR: Luis Enrique Quinonez Interpretating Date/Time 11/30/2016 12:54:35
--- NOTE | 2016-11-30 12:57 | EKG ---
Date Performed: 11/30/2016 Time Performed: 09:59:50 PTAGE: 61 years EKG: Sinus rhythm BORDERLINE LEFT AXIS DEVIATION ST ELEVATION CONSISTENT WITH INJURY, PERICARDITIS, OR EARLY REPOLARIZ ATION Compared to previous tracing, there is minimal lateral ST elevation. Clinical correlation is re commended ABNORMAL ECG PREVIOUS TRACING : 11/30/2016 00.14 DOCTOR: Luis Enrique Quinonez Interpretating Date/Time 11/30/2016 12:55:57
[2016-11-30] MEDS ORDERED: PHENYLEPHRINE HCL 10 MG/ML VIAL ONE (13:04)
[2016-11-30] MEDS ORDERED: CLOPIDOGREL 300 MG TAB ONE (13:25)
--- NOTE | 2016-11-30 13:37 | CATHPROC ---
[email or web address] HIS Report Study Information Study Number Admission Scheduled Start Study Start [id number] Nov 30 2016 2:20AM 11/30/2016 Nov 30 2016 12:35PM [place] Service Cardiac Catheterization Admit Source Facility Department Other [facility] - Gym Supervisor Physician and Clinical Staff Initial MD Murillo, Miguel Dam Tender Anam Wall,ROMAN Dam Tender Stacy Welch RN Recorder Erin Mazariegos,RT(R) Scrub Alicia, Chacha,LEANDRA TECH2 Procedures Performed Procedure Location (Site) Vessel Name Coronary Angiograms LCA Left Coronary Coronary Angiograms RCA Right Coronary L Heart Cath PTCA CIRC Prox CIRC PTCA ADD ON'S Stent CIRC Prox CIRC Wire insertion Fem Art (right) Femoral Art Equipment Time Torpedo Shooter Description Size Mfg Part Number Used/Scraped COPILOT VALVE, BLEEDBACK [id number] 13:07 [employer] Used CONTROL *[id number] PERCLOSE, PRO GLIDE CLOSER 13:29 GARCIA [employer] C[employer] FR 6 [id number] *[id number] Used [employer]ICE [employer] 13:07 SHEATH, FR6 11CM FR 6 11CM [id number] Used [employer] 13:07 SHEATH, FR6 11CM FR 6 11CM [id number] Used INC. TRANSDUCER, TRUWAVE [id number] 12:52 HOLGUIN WELCH * Used W/STOCKCOCK *[id number]- INTRODUCER SET, 12:52 [employer]OOK INC. FR 5 SC-NT-U-SST Used MICROPUNCTURE, STIFFENED *[id number] [id number] *[id number] 534-521T *[id number] 12:52 [employer] INDUSTRIES PACK, CCL CUSTOM * Used *[id number] 13:12 [employer] BALLOON, 2.5 X 12MM EUPHORA 12MM Used *[id number] BALLOON, 3.0 X 12MM NC [id number] 13:18 [employer]TRONIC 12MM Used EUPHORA *[id number] 13:16 [employer] STENT, 2.75 18 INTEGRITY 2.75 18 Used *[id number] [id number] 13:24 [employer] STENT, 3.0 12 INTEGRITY 3.0 12 Used *[id number] 13:07 [employer]TR[employer]IC/AVE EBU 3.5 Z2 GUIDE CATHETER FR 6 Used *[id number] 13:13 [employer] 30 FARRAH INDEFLATOR Used *[id number] 13:06 [employer] MEDICAL SHEATH, FR6.5 PRELUDE 11CM FR 6.5 038ACT Used *[id number] 12:52 [employer] MEDICAL WIRE, 3MMJ .035 180CM 180CM Used *[id number] 12:52 NAMIC MANIFOLD, 4 PORT * Used *[id number] 13:13 [employer]COMED OMNIPAQUE, 300 MG, 50ML 50ML [id number] Used 12:52 [employer]COMED OMNIPAQUE, 350 MG, 150ML 150ML [id number] Used [id number] 12:52 [facility] BLANKET,WARM AIR CCL * Used *[id number] 12:52 [employer] MEDICAL SHEATH, FR5 TERUMO (10CM) FR 5 [id number] Used WIRE, RUNTHROUGH NS FLOPPY [id number] 13:06 TERUMO MEDICAL 180CM Used .014 180CM *[id number] Equipment Model, Serial, Lot Number and Expiration Data Description Model Number Serial Number Lot Number Expiration Date PERCLOSE, PRO GLIDE CLOSER [id number] 08-15-2018 DEVICE STENT, 2.75 18 INTEGRITY [id number] 12-31-2016 STENT, 3.0 12 INTEGRITY [id number] 07-09-2018 History: Allergies Allergy Reaction Penicillin Hives History: Risk Factors Family History of Hypertension Dyslipidemia Previous MO Previous Heart Failure Premature CAD Yes Yes Yes Yes No Prior Valve Prior PCI Prior CABG Surgery No No No Cerebrovascular Peripheral Artery Chronic Lung On Dialysis Diabetes Disease Disease Disease No No No Yes Yes History: Risk Factors Selection Items Current Smoker History: Symptoms/Diagnosis Selection Items SOB History: Stress Tests Stress or Imaging Studies Performed No History: Other Current Smoker Method Packs a Day Years Used Pack Years Yes Cigarettes 1 50 50 Labs Hgb (g/dl) Hct (%) RBC (MIL/MM3) WBC (l/cumm) Platelets (thousands) 11.60-17.00 35.00-51.00 4.00-5.90 4.00-11.00 150.00-450.00 10.1 30.1 3.6 10.5 110 Glucose (mg/dl) BUN (mg/dl) Creatinine (mg/dl) BUN:Creatinine (1:x) 74.00-106.00 7.00-18.00 0.50-1.30 10.00-20.00 50 20 1.6 12.5 Na (meq/l) K (meq/l) Cl (meq/l) CO2 (mmol/L) Ca (mg/dl) 136.00-145.00 3.50-5.10 98.00-107.00 21.00-32.00 8.50-10.10 134 2.7 98 22.4 7.3 PT (sec) PTT (sec) INR (PTT:PT) 9.80-11.60 24.30-30.10 0.90-1.10 12.8 31.3 1.2 Troponin I (ng/ml) CPK-MB (ng/ML) 0.02-0.05 0.50-3.60 3.12 Not Drawn Medication Medication Total Dose (Bolus/Oral) Medication Total Dosage/Unit 1% XYLOCAINE 20 mL HEPARIN 5000 units Medications (Bolus/Oral) Medication Time Given Dosage/Unit Administered By Reason 1% XYLOCAINE 11/30/2016 12:47:52 PM 20 mL Nelida-Miguel Vasquez 20 mL 1% XYLOCAINE given by Miguel Murillo in Right Groin via Subcutaneous. HEPARIN 11/30/2016 1:07:22 PM 5000 units Stacy Welch 5000 units HEPARIN given in lab by Stacy Welch RN via Peripheral IV. Medication (Drip) Medication Time Given Dosage/Unit Concentration/Unit Diluent (ml) Solution IV Bolus 11/30/2016 12:59:25 PM 25 mL (Bolus) D5W .45 NaCl 25 mL (Bolus) IV Bolus given in lab by Anam Wall RN in Left Forearm via Peripheral IV. Using D5W .45 NaCl. D50 IV Solutions 11/30/2016 12:39:34 PM 0 mL (IV) 1000 NaCl .9 Patient arrived on IV Solutions in Left Forearm via Peripheral IV. Pump/Drip Flow = 20 ml/hr using Na Cl .9. LIZETTE-SYNEPHRINE 11/30/2016 1:04:01 PM 100 mcg/min 10 mg 250 D5W 100 mcg/min LIZETTE-SYNEPHRINE given in lab by Anam Wall RN via Peripheral IV. Pump/Drip Flow = 150 ml/hr using D5W with a concentration of 10 mg in 250 ml. Initial Case Assessment Cardiovascular HR Rhythm NIBP Chest Pain 100 reg 121/74 0 Edema Present Skin color Skin None Normal Warm Circulatory - Right Pulses Dorsalis Pedis Femoral 2 2 Scale (0,1,2,3,4,d) Circulatory - Left Pulses Dorsalis Pedis Femoral 2 2 Scale (0,1,2,3,4,d) Circulatory - Lower Extremities Color Lower Right Color Lower Left Normal Normal Neurological State Oriented to time-place- Alert Moves all extremities person Respiration - General Respiration Rate SpO2 (%) O2 (lpm) (B/min) 20 99 2 Chronological Log Time Study Chronological Log 12:30:05 Patient arrived via Bed. 12:30:11 Patient Name, D.O.B, / Armband Verified By R.N. 12:35:16 Consent signed by the physician and the patient and verified by the Gym Supervisor staff. 12:35:17 Pre-op and post- op instructions given; patient acknowledges understanding of instructions. 12:35:17 Verbal Stimulation=2 Physical Stimulation=2 Airway=2 Respiration=2 TOTAL=8. (0=absent, 1=li mited, 2=present) Vitals capture started with the following parameters, Patient=Adult, Interval=5 min, Initial Pr bhichl=196 mmHg, 12:37:27 Deflation Rate=5 mmHg 12:38:13 UK=534 bpm, ARFE=754/74 mmhg, SpO2=99.0 %, Resp=19 B/min, Pain=0, Alcides=10, Tejeda=2 12:38:24 Reference ECG taken 12:39:12 Patient has been NPO for More than 6Hrs. 12:39:13 Skin Breakdown-none 12:39:25 A # 20 IV was noted in the Forearm (left). Grade = 0 12:39:34 Patient arrived on IV Solutions in Left Forearm via Peripheral IV. Pump/Drip Flow = 20 ml/h r using NaCl .9. 12:39:59 History and physical on the chart or being dictated. Assessment: Initial Case, QA=638 BPM, Rhythm=reg, CQUF=119/74 mmhg, Chest Pain=0, Edema=None, Color=Normal, Skin = Warm Right Pulses: [place] Ped=2, Femoral=2 Left Pulses: [place] Ped=2, Femoral=2 12:40:00 Lower Right Extremities: Color=Normal Lower Left Extremities: Color=Normal Neurological: State=Alert, Ox3, KNOWLES Respiration: Resp=20 B/min, SpO2=99 %, O2=2 lpm 12:40:44 Bilateral groins prepped with 2% chlorhexidine, and with a 3 min. waiting time. 12:40:49 MD arrived. 12:43:06 HR=95 bpm, YPAH=984/68 mmhg, SpO2=99.0 %, Resp=24 B/min, Pain=0, Alcides=10, Tejeda=2 Time Out. Correct patient, correct procedure,correct physician, ,power injector not loaded with contrast with surgical 12:47:19 team present. Time Out Concurred by MD, individual staff and [employer] in procedure 12:47:44 Case Start 12:47:46 Verbal Stimulation=2 Physical Stimulation=2 Airway=2 Respiration=2 TOTAL=8. (0=absent, 1=li mited, 2=present) 12:47:52 20 mL 1% XYLOCAINE given by Miguel Murillo in Right Groin via Subcutaneous. 12:48:05 HR=0 bpm, GKZZ=296/70 mmhg, PnQ6=037.0 %, Resp=22 B/min, Pain=0, Alcides=10, Tejeda=2 12:48:52 Pressure channel 1 zeroed. 12:51:07 Access site was Right Femoral Artery. 12:51:11 A wire was inserted via Fem Art (right). A SHEATH, FR5 TERUMO (10CM) FR 5 was advanced into the Fem Art (right) using the Percutaneous t echnique. with 12:51:17 MP kit 12:52:39 An injection in the Fem Art (right) was made through the SHEATH, FR5 TERUMO (10CM) FR 5. 12:53:06 HR=0 bpm, NIBP=98/65 mmhg, WeP7=201.0 %, Resp=24 B/min, Pain=0, Alcides=10, Tejeda=2 12:53:17 BLOOD SUGAR CHECKED 50 Recorded Pressure: LV, HR=97, Condition=Condition 1 12:55:00 (Left Ventricle) LV 109/-2/20 Recorded Pressure: LV, HR=?, Condition=Condition 1 12:55:57 (Left Ventricle) LV ?/?/? Recorded Pressure: LV, HR=?, Condition=Condition 1 12:56:51 (Left Ventricle) LV ?/?/? 12:57:16 A JR 4.0 INFINITI CATHETER FR 5 was advanced over a wire. contrast was used for injections. 12:57:54 The RCA was injected and visualized at various angles. OMNIPAQUE, 350 MG, 150ML 150ML used . 12:58:05 HR=0 bpm, NIBP=98/58 mmhg, SpO2=98.0 %, Resp=21 B/min, Pain=0, Alcides=10, Tejeda=2 12:59:25 25 mL (Bolus) IV Bolus given in lab by Anam Wall RN in Left Forearm via Peripheral IV. Using D5W .45 NaCl. D50 13:00:27 Catheter was removed A JL 4.0 INFINITI CATHETER FR 5 was advanced over a wire. OMNIPAQUE, 350 MG, 150ML 150ML was us ed for 13:00:30 injections. 13:00:48 The LCA was injected and visualized at various angles. OMNIPAQUE, 350 MG, 150ML 150ML used . 13:03:02 CC=715 bpm, NIBP=96/60 mmhg, SpO2=99.0 %, Resp=22 B/min, Pain=0, Alcides=10, Tejeda=2 100 mcg/min LIZETTE-SYNEPHRINE given in lab by Anam Wall RN via Peripheral IV. Pump/Drip Flow = 150 ml/hr using 13:04:01 D5W with a concentration of 10 mg in 250 ml. 13:04:26 NIBP STAT measurement started. 13:04:56 HR=0 bpm, ERMV=619/71 mmhg, BeV4=348.0 %, Resp=22 B/min, Pain=0, Alcides=10, Tejeda=2 13:05:06 Catheter was removed A SHEATH, FR6 11CM FR 6 11CM was exchanged in the Fem Art (right). This was necessary in order to accomodate a 13:05:58 larger catheter. 13:07:22 5000 units HEPARIN given in lab by Stacy Welch RN via Peripheral IV. A EBU 3.5 Z2 GUIDE CATHETER FR 6 was advanced over a wire. OMNIPAQUE, 350 MG, 150ML 150ML was u sed for 13:07:53 injections. 13:08:07 IN=921 bpm, FFXO=872/64 mmhg, SpO2=99.0 %, Resp=22 B/min, Pain=0, Alcides=10, Tejeda=2 13:09:25 A WIRE, RUNTHROUGH NS FLOPPY .014 180CM 180CM was inserted via Fem Art (right). 13:12:27 OMNIPAQUE, 300 MG, 50ML 50ML and 30 FARRAH INDEFLATOR added. A BALLOON, 2.5 X 12MM EUPHORA 12MM was inserted over WIRE, RUNTHROUGH NS FLOPPY .014 180CM 180C M via 13:12:40 the CIRC Prox. 13:13:08 HR=99 bpm, FEVJ=607/57 mmhg, JhH0=886.0 %, Resp=22 B/min, Pain=0, Alcides=10, Tejeda=2 A BALLOON, 2.5 X 12MM EUPHORA 12MM over a WIRE, RUNTHROUGH NS FLOPPY .014 180CM 180CM in the CI RC 13:13:30 Prox was inflated using a 30 FARRAH INDEFLATOR at 12 farrah for 16 sec. 13:13:53 BLOOD SUGAR 111 13:14:08 Balloon Removed. 13:14:16 The LCA was injected and visualized at various angles. OMNIPAQUE, 350 MG, 150ML 150ML used . An STENT, 2.75 18 INTEGRITY 2.75 18 Bare Metal Stent was inserted through a EBU 3.5 Z2 GUIDE CA THETER FR 6 13:14:39 over a WIRE, RUNTHROUGH NS FLOPPY .014 180CM 180CM. A STENT, 2.75 18 INTEGRITY 2.75 18 was deployed using a 30 FARRAH INDEFLATOR at 14 atmospheres for 18 seconds in 13:15:41 the CIRC Prox. 13:16:19 Delivery device removed 13:18:07 HR=9 bpm, NIBP=98/65 mmhg, SpO2=98.0 %, Resp=26 B/min, Pain=0, Alcides=10, Tejeda=2 A BALLOON, 3.0 X 12MM NC EUPHORA 12MM was inserted over WIRE, RUNTHROUGH NS FLOPPY .014 180CM 1 80CM 13:18:44 via the CIRC Prox. A BALLOON, 3.0 X 12MM NC EUPHORA 12MM over a WIRE, RUNTHROUGH NS FLOPPY .014 180CM 180CM in the CIRC 13:19:28 Prox was inflated using a 30 FARRAH INDEFLATOR at 14 farrah for 19 sec. A BALLOON, 3.0 X 12MM NC EUPHORA 12MM over a WIRE, RUNTHROUGH NS FLOPPY .014 180CM 180CM in the CIRC 13:20:25 Prox was inflated using a 30 FARRAH INDEFLATOR at 12 farrah for 12 sec. 13:22:31 Balloon Removed. An STENT, 3.0 12 INTEGRITY 3.0 12 Bare Metal Stent was inserted through a EBU 3.5 Z2 GUIDE CATH ETER FR 6 over 13:22:38 a WIRE, RUNTHROUGH NS FLOPPY .014 180CM 180CM. 13:23:04 HR=99 bpm, XIWZ=480/64 mmhg, SpO2=99.0 %, Resp=22 B/min, Pain=0, Alcides=10, Tejeda=2 A STENT, 3.0 12 INTEGRITY 3.0 12 was deployed using a 30 FARRAH INDEFLATOR at 14 atmospheres for 1 4 seconds in 13:23:47 the CIRC Prox. 13:24:16 Re-inflated the stent balloon in the CIRC Prox to 10 FARRAH for 7 seconds. 13:25:20 The LCA was injected and visualized at various angles. OMNIPAQUE, 350 MG, 150ML 150ML used . 13:26:34 Wire removed 13:26:37 The LCA was injected and visualized at various angles. OMNIPAQUE, 350 MG, 150ML 150ML used . 13:27:41 Wire removed 13:27:43 Catheter was removed 13:28:07 HR=18 bpm, LHVQ=067/63 mmhg, SpO2=98.0 %, Resp=25 B/min, Pain=0, Alcides=10, Tejeda=2 13:33:08 HR=62 bpm, SFLQ=385/64 mmhg, SpO2=98.0 %, Resp=25 B/min, Pain=0, Alcides=10, Tejeda=2 13:34:53 PERCLOSE, PRO GLIDE CLOSER DEVICE FR 6 placement in the Fem Art (right) 13:34:59 Case End 13:34:59 Sterile dressing applied to site 13:35:00 No case complications noted. 13:35:01 Cine recording checked. 13:35:03 Bedside Report will be given. 13:35:04 Implantable Device card placed in patient's chart. 13:35:04 Contrast Scanned 13:35:07 Verbal Stimulation=2 Physical Stimulation=2 Airway=2 Respiration=2 TOTAL=8. (0=absent, 1=l imited, 2=present) 13:35:16 A Left Heart Cath was performed. 13:35:20 Patient moved to stretcher 13:35:22 Clinical correlaton risk stratification. End Study - Contrast Media Used In Study Contrast Total Opened (mL) Total Used (mL) Total Wasted (mL) Omnipaque 70 70 0 End Study - Maximum Contrast Load Max Contrast Load (mL) 325.0 End Study - Radiation Exposure Fluoro Time (minutes) 10.2 End Study - Sheaths Sheaths Pulled By Sheath Hold Time (min) Miguel Murillo End Study - Patient Disposition Complications Transferred To Interventional Outcome No Telemetry Bed successful
[2016-11-30] MEDS ORDERED: MISC INFORMATION XX ONE (13:45)
[2016-11-30] MEDS: ASPIRIN 81 MG CHEW TAB PO SCH (13:45)
[2016-11-30] MEDS ORDERED: ATROPINE SULFATE 1 MG/ML VIAL IV PRN (13:45)
[2016-11-30] MEDS ORDERED: CLOPIDOGREL 300 MG TAB PO ONE (13:45)
--- NOTE | 2016-11-30 14:19 | MA ---
cc: DARRYL MUSTAFA DATE: 11/30/2016. PROCEDURE PERFORMED: 1. Left heart catheterization. 2. Selective right and left coronary angiography. 3. Left ventricle hemodynamics. 4. Successful percutaneous coronary intervention to the left circumflex artery with a bare-metal stent. INDICATIONS FOR THE PROCEDURE: Zui-P-O-elevation myocardial infarction with ongoing chest pain despite medical therapy. Emergent cath. DESCRIPTION OF THE PROCEDURE IN DETAIL: Consent signed. The patient was brought into the cardiac laborer chicken farm in a fasting state. The right groin was prepped and draped in sterile fashion using 1% lidocaine for local anesthesia and a micropuncture kit. A 6-Gabonese sheath was inserted into the right femoral artery. Selective right femoral artery angiography was performed to confirm position of this sheath and then selective right and left coronary angiography was performed with a JR-4 and JL-4 diagnostic catheters. Angiography was taken in multiple views. The JR-4 diagnostic catheter was introduced into the ventricle over a wire. This was followed by pressure recordings and pullback. We identified a thrombotic lesion on the proximal left circumflex artery consistent with elevated troponins as well as explaining also the patient's chest pain. This lesion was amendable to intervention; thus we prepared to fix. For this, we used IV heparin for anticoagulation. The left main was engaged with an EBU 3.5 6-Gabonese guide. The wire with run-through wire which was anchored distally. The lesion was predilated with a 2.5 x 12 balloon followed by insertion and deployment of a bare-metal stent 2.75 x 18. There was a dissection in the proximal portion of the stent for which another 3.0 x 12 bare-metal stent had to be deployed. The stents were postdilated with a 3.0 noncompliant balloon to high atmospheres. Final angiographic views revealed good stent position and expansion with TALI III flow. The patient tolerated the procedure well without complications. Estimated blood loss was less than 30 mL. Total contrast used was 75 mL. The right groin access site was closed with a Perclose device. The patient was loaded with a Plavix 600 after the procedure. RESULTS: 1. LEFT VENTRICLE: The left ventricular end diastolic pressure was 20. Left ventriculogram was not performed given the patient's chronic kidney disease. ANGIOGRAPHY: 1. RIGHT CORONARY ARTERY: The right coronary artery is a dominant vessel. It is minimally calcified. It has a 10% lesion in its mid-segment. The vessel is giving on the posterior descending artery which is patent with TALI III flow. Also, there is a posterolateral branch that is patent with TALI III flow and nonobstructive coronary artery disease. 2. LEFT MAIN: There are mild calcifications, however, patent with no significant obstructive lesions. 3. LEFT ANTERIOR DESCENDING: The left anterior descending is a transapical vessel. It is calcified from its proximal segment to its midsegment; however, no significant obstructive lesions. The left anterior descending is giving off a diagonal which has a 70% lesion in its ostial segment; however this diagonal is small. 4. LEFT CIRCUMFLEX: The left circumflex artery has a proximal clot thrombus. It has TALI II flow nonetheless and is giving off, two OM branches, which are patent. CONCLUSION: 1. Successful percutaneous coronary intervention / bare metal stent to proximal left circumflex in the setting of a dgp-Z-B-elevation myocardial infarction. 2. Elevated left ventricular end diastolic pressure. RECOMMENDATIONS: Transferred back to the ICU for post cath care. Continue aspirin and Plavix and as well as aggressive optimization of coronary artery disease therapy with beta- blockers, statins and long-acting nitrates. 2-D echocardiogram before discharge to assess left ventricular systolic function. MD CINDY Benavidez/UZAIR /1:42 PM /2:13 PM VON
[2016-11-30] MEDS ORDERED: METFORMIN HOLD POST IV CONTRAST SCH (15:00)
[2016-11-30 16:08] LABS: AUTOMATED NEUTROPHIL # 8.4 TH/MM3 (1.8-7.7); BASOPHIL # 0.1 TH/MM3 (0-0.2); BASOPHIL % 1.1 % (0.0-2.0); HEMATOCRIT 30.4 % (39.0-51.0); LYMPH % 4.7 % (9.0-44.0); LYMPHOCYTE # 0.4 TH/MM3 (1.0-4.8); MEAN CELL VOLUME 83.4 FL (80.0-100.0); MEAN CORPUSCULAR HEMOGLOBIN 26.9 PG (27.0-34.0); MEAN CORPUSCULAR HGB CONC 32.3 % (32.0-36.0); MONO % 3.4 % (0.0-8.0); NEUT % 90.8 % (16.0-70.0); PLATELET COUNT 109 TH/MM3 (150-450); RED BLOOD COUNT 3.64 MIL/MM3 (4.50-5.90); RED CELL DISTRIBUTION WIDTH 15.3 % (11.6-17.2); WHITE BLOOD COUNT 9.3 TH/MM3 (4.0-11.0)
[2016-11-30 16:16] LABS: HEMO FLAGS AUTO DIFF
--- NOTE | 2016-11-30 16:39 | MB ---
cc: RICHARD BARRIENTOS DATE OF 60 DATE OF CONSULTATION 11/30/2016 REASON FOR CONSULTATION The patient with a history of head and neck cancer and also with an esophageal mass who presents with abdominal pain. CHIEF COMPLAINT Abdominal pain. 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 This surgery was undertaken at [facility]. The tumor involved the left ear. The final pathology results confirmed tumor present at the deep margin. There was perineural invasion present. The tumor invaded the subcutaneous tissue. It was staged as T3. Due to the presence of high-risk features, perineural involvement and close margins, it was thought that the patient will benefit from concurrent chemotherapy and radiation treatment in the adjuvant setting. However prior to his treatment the patient underwent PET scan which was concerning for an esophageal mass. The patient was referred to GI for an EGD and endoscopic ultrasound with biopsy and this workup is ongoing. The patient now presents to the emergency department with abdominal pain which has been worsening over the past 3 weeks. In the emergency department he was hypotensive and received IV fluid resuscitation with improvement in his blood pressure. He was febrile with temperature 101. An EKG was obtained in the emergency department which showed ST changes. Additionally, his troponins were found to be elevated to 17.1. The patient has been evaluated by cardiology. I discussed this case with Dr. Quinonez. The patient had a CT of the abdomen and pelvis on admission. This reveals marked eccentric soft tissue thickening in the distal esophagus with prominent soft tissue measuring 2.7 x 4.5 cm in the transverse dimension in the posterior esophagus with marked luminal narrowing. This is extending into the gastroesophageal junction. The patient was also noted to have liver cirrhosis and mild splenomegaly with a splenic size of 14 cm. The patient had CT angiogram on admission. There is no evidence of pulmonary embolism or pneumonia. REVIEW OF SYSTEMS A comprehensive 14-point review of systems was completed which is negative except as described in the HPI. PAST MEDICAL HISTORY 1. Squamous cell carcinoma of the parotid gland. ] 2. Esophageal mass. 3. Hypertension. 4. Hyperlipidemia. 5. Coronary artery disease. 6. Diabetes mellitus type 2. PAST SURGICAL HISTORY 1. Appendectomy. 2. Liver biopsy. 3. Head and neck surgery. 4. Port placement. FAMILY HISTORY Was reviewed and noncontributory to this admission. SOCIAL HISTORY He drinks alcohol occasionally. More than 40 pack-year smoking history. Does not use any drugs. MEDICATIONS 1. Plavix 75 mg p.o. daily. 2. Metoprolol 12.5 mg p.o. b.i.d. 3. Atorvastatin 10 mg p.o. q.h.s. 4. Tylenol 325 mg p.o. q.4 h p.r.n. 5. Aspirin 81 mg p.o. daily. 6. Zofran 4 mg IV q.4 h. 7. Rere-Colace one tablet p.o. b.i.d. 8. Pantoprazole 40 mg IV q.12 h. 9. Tylenol 650 p.o. q.6 h p.r.n. 10. Dilaudid 1 mg IV q.3 h p.r.n. 11. Oxycodone 5 mg p.o. q.4 h p.r.n. 12. Milk of Magnesia 30 mL p.o. q.12 h p.r.n. 13. Senna 17.2 mg one tablet p.o. q.12 h p.r.n. 14. Dulcolax 10 mg daily p.r.n. 15. Lactulose 30 mL p.o. p.r.n. ALLERGIES HE IS ALLERGIC TO PENICILLIN. PHYSICAL EXAMINATION VITAL SIGNS: pressure is 100/58, pulse is in the 90s, temperature is 98.1, O2 sats 100% on room air. GENERAL: Mild diaphoresis. No pain. HEENT: Pupils are equal, round, react to light. EOMI. No oral thrush. No oral lesions. NECK: Supple. No JVD, no bruits. No lymphadenopathy. CHEST: Clear to auscultation bilaterally. CARDIOVASCULAR: S1-S2 regular rate and rhythm. ABDOMEN: Soft, nontender, nondistended. Bowel sounds are present. EXTREMITIES: Without any edema, erythema or cyanosis. SKIN: Without any petechiae, lesion or bruises. NEUROLOGIC: No focal deficits. PSYCHIATRIC: Mood and affect appropriate. LABORATORY DATA WBC is 10.5, hemoglobin 10.1, MCV is 83.4, platelet count 110. Serum chemistries show sodium 134, potassium 2.7, chloride 98, BUN is 20. INR is 1.64. GFR is 43, calcium is 7.3, AST 37, ALT is 30, alk phos is 67. Troponins have been trending up, most recent troponin values 17. Albumin is 2.6. Triglycerides are high at 581. Lipase is 150. TSH 3.63. IMAGING STUDIES in the EMR and discussed as above. ASSESSMENT/PLAN This is a 71-year-old male who has a diagnosis of T3 N0 locally advanced poorly differentiated squamous cell carcinoma of the left periauricular area involving the parotid gland and an esophageal mass who presents to the emergency department with abdominal pain. He was found to have ST-segment changes and elevated troponin levels consistent with acute myocardial infarct infarction. 1. Elevated troponin and ST-segment changes consistent with acute AZ. I have discussed this case with Dr. Quinonez. This patient has a head and neck, lung malignancy which was locally advanced. He received definitive treatment with surgery. Post surgery he had positive margins and some poor risk features and he was about to get concurrent chemotherapy and radiation and adjuvantly to achieve local control of the disease. He underwent a PET scan to stage his disease prior to treatment and he was found to have an esophageal mass which could be a primary esophageal cancer. In either case the patient should receive full treatment for his AZ. This patient does not have stage IV disease based on the information that we have thus far and I discussed this with Dr. Quinonez. 2. Esophageal mass which is concerning for primary esophageal cancer. Once his cardiac issues have been addressed, he will need an EGD and endoscopic ultrasound in order to save time and to expedite reaching a diagnosis we will ask GI while the patient is admitted to the hospital for an evaluation. Once he is stable from his cardiac standpoint he should get an EGD and endoscopic ultrasound with biopsy as soon as possible so that we can determine a treatment plan for this patient. 3. Poorly differentiated squamous cell carcinoma of the left periauricular area involving the parotid gland. He is status post parathyroidectomy and lymph node dissection. This was a T3 disease. This case was discussed in our tumor conference and it was decided to hold off on giving this patient any concurrent chemotherapy and radiation until we have biopsied the esophageal mass. If he is found to have esophageal cancer, the preference would be to treat the esophageal cancer first with chemotherapy and radiation. 4. Anemia. We will obtain anemia studies. His hemoglobin is still above 10. We will transfuse packed red blood cells if his hemoglobin drops below 8. Obtain a stool hemoccult. 5. Tobacco abuse counseling. Thank you for allowing me to participate in the care of this patient. I will continue to follow this patient along. MD MARCIA Noriega/MOISES /1:59 PM /4:09 PM
[2016-11-30 16:47] LABS: BANDS 23 % (0-6); NEUTROPHIL # MANUAL DIFF 8.8 TH/MM3 (1.8-7.7); POLYS (SEG NEUTROPHILS) 72 % (16-70); WBC DIFF SAMPLE 100
[2016-11-30 16:48] LABS: BICARBONATE 24.6 MEQ/L (21.0-32.0); PLATELET ESTIMATE SMEAR LOW (NORMAL); PLATELET MORPHOLOGY NORMAL (NORMAL); SCAN/DIFF FINAL DIFF MANUAL
[2016-11-30 16:51] LABS: POTASSIUM 2.8 MEQ/L (3.5-5.1)
[2016-11-30 17:28] LABS: TRANSFERRIN 192 MG/DL (200-360); TRANSFERRIN IRON PROFILE 192 MG/DL (200-360)
[2016-11-30] MEDS ORDERED: SODIUM CHLORIDE 0.9% FLUSH 10 ML FLUSH IV FLUSH PRN (18:00)
[2016-11-30 18:01] LABS: LACTIC ACID GHOST NOT REPORTABLE
[2016-11-30] MEDS: POTASSIUM CHLOR 20 MEQ PREMIX 100 ML IV SCH ×2 (18:03→19:24)
[2016-11-30] MEDS: METOPROLOL TARTRATE 25 MG TAB PO SCH (21:50)
[2016-11-30] MEDS: ATORVASTATIN 10 MG TAB PO SCH (21:50)
[2016-12-01] VITALS (22 sets, daily range): BP systolic 80–121; BP diastolic 52–72; PULSE 105–133; RESP 19–37; TEMP 98.5–103.4; O2SAT 92–98
[2016-12-01] MEDS: HYDROmorphone HCL PF 1 MG/ML VIAL IV PRN (02:44)
[2016-12-01] MEDS: CHLORHEXIDINE GLUCONATE 2 % 1 PACK (2 CLOTHS)(taper/protocol) TOPICAL SCH (04:00)
[2016-12-01 05:49] LABS: AUTOMATED NEUTROPHIL # 10.6 TH/MM3 (1.8-7.7); BASOPHIL % 0.2 % (0.0-2.0); HEMATOCRIT 27.3 % (39.0-51.0); LYMPH % 4.4 % (9.0-44.0); LYMPHOCYTE # 0.5 TH/MM3 (1.0-4.8); MEAN CELL VOLUME 82.9 FL (80.0-100.0); MEAN CORPUSCULAR HEMOGLOBIN 27.6 PG (27.0-34.0); MEAN CORPUSCULAR HGB CONC 33.3 % (32.0-36.0); MONO % 5.8 % (0.0-8.0); NEUT % 89.6 % (16.0-70.0); PLATELET COUNT 98 TH/MM3 (150-450); RED CELL DISTRIBUTION WIDTH 15.2 % (11.6-17.2); WHITE BLOOD COUNT 11.9 TH/MM3 (4.0-11.0)
[2016-12-01 06:03] LABS: HEMO FLAGS AUTO DIFF
[2016-12-01 06:21] LABS: ALKALINE PHOSPHATASE 73 U/L (45-117); ALT (GPT) 75 U/L (12-78); ANION GAP 14 MEQ/L (5-15); AST (GOT) 147 U/L (15-37); BICARBONATE 21.2 MEQ/L (21.0-32.0); BLOOD UREA NITROGEN 22 MG/DL (7-18); CHLORIDE 97 MEQ/L (98-107); GLOMERULAR FILTRATION RATE 63 ML/MIN (>89); SODIUM (NA) 132 MEQ/L (136-145); TOTAL BILIRUBIN ADULT 0.9 MG/DL (0.2-1.0)
[2016-12-01 06:30] LABS: POTASSIUM 2.9 MEQ/L (3.5-5.1)
[2016-12-01] MEDS ORDERED: LORazepam 2 MG/ML VIAL IV PUSH ONE (06:30)
[2016-12-01 07:00] LABS: BANDS 17 % (0-6); NEUTROPHIL # MANUAL DIFF 11.2 TH/MM3 (1.8-7.7); PLATELET ESTIMATE SMEAR LOW (NORMAL); PLATELET MORPHOLOGY NORMAL (NORMAL); POLYS (SEG NEUTROPHILS) 77 % (16-70); SCAN/DIFF FINAL DIFF MANUAL; WBC DIFF SAMPLE 100
[2016-12-01] MEDS: SODIUM CHLORIDE 0.9% FLUSH 10 ML FLUSH IV FLUSH SCH ×2 (07:43→20:30)
[2016-12-01] MEDS ORDERED: LORazepam 2 MG/ML VIAL IV ONE (07:45)
--- NOTE | 2016-12-01 08:18 | RADRPT ---
EXAM DATE/TIME: 12/01/2016 07:59 [place] COMPARISON: No previous studies available for comparison. INDICATIONS : Altered mental status. Fall last night. RADIATION DOSE: 69.19 CTDIvol (mGy) MEDICAL HISTORY : Hypertension. Parotid gland and esophageal mass. SURGICAL HISTORY : None. ENCOUNTER: Initial ACUITY: 1 day PAIN SCALE: 0/10 LOCATION: cranial TECHNIQUE: Multiple contiguous axial images were obtained of the head. Using automated exposure control and adj ustment of the mA and/or kV according to patient size, radiation dose was kept as low as reasonably a chievable to obtain optimal diagnostic quality images. DICOM format image data is available electro nically for review and comparison. FINDINGS: CEREBRUM: Questionable area of low attenuation left temporal lobe, likely streak artifact. Scattered areas of l ow attenuation throughout the white matter. The ventricles are normal for age. No evidence of midlin e shift, mass lesion, hemorrhage or acute infarction. No extra-axial fluid collections are seen. POSTERIOR FOSSA: The cerebellum and brainstem are intact. The 4th ventricle is midline. The cerebellopontine angle i s unremarkable. EXTRACRANIAL: The visualized portion of the orbits is intact. SKULL: The calvaria is intact. No evidence of skull fracture. CONCLUSION: 1. Questionable area of low attenuation left temporal lobe could be artifact versus less likely infar ct. MRI may be warranted based on clinical history. 2. No midline shift or mass effect. 3. No intraparenchymal hemorrhage. Jagjit Tapia MD on December 01, 2016 at 8:13 Board Certified Radiologist. This report was verified electronically.
[2016-12-01] MEDS: POTASSIUM CHLORIDE INJ 30 MEQ in SODIUM CHLORIDE 0.9% INJ 100 ML IV-CENTRAL SCH ×2 (08:24→12:43)
--- NOTE | 2016-12-01 09:01 | PD.CARD.PN ---
Subjective Subjective Remarks Events of yesterday noted; pt not responsive, in restraints. Objective Medications Administered Medications Medications (Trade) Dose Ordered Sig/Geovanny Route PRN Reason Start Time Stop Time Status Last Admin Dose Admin Sodium Chloride (NS Flush) 2 ml BID IV FLUSH 11/30/16 09:00 12/01/16 07:43 Hydromorphone HCl (Dilaudid Pf Inj) 1 mg Q3H PRN IV Pain 6-10 11/30/16 02:45 12/01/16 02:44 Pantoprazole Sodium (Protonix Inj) 40 mg Q12H IV PUSH 11/30/16 09:00 11/30/16 21:49 Chlorhexidine Gluconate (Chlorhexidine 2% Cloth) 3 pack DAILY@04 TOPICAL 12/01/16 04:00 12/05/16 04:01 12/01/16 04:00 Aspirin (Aspirin Chew) 81 mg DAILY PO 11/30/16 13:45 11/30/16 13:45 Metoprolol Tartrate (Lopressor) 12.5 mg BID PO 11/30/16 21:00 11/30/16 21:50 Atorvastatin Calcium (Lipitor) 10 mg HS PO 11/30/16 21:00 11/30/16 21:50 Sodium Chloride (NS Flush) 5 ml Q21D IV FLUSH 11/30/16 18:00 11/30/16 18:00 Heparin Sodium (Porcine) 500 units 500 units Q21D IV FLUSH 11/30/16 18:00 11/30/16 18:04 Potassium Chloride/Sodium Chloride (KCl Inj/NS Inj) 115 ml @ 38.333 mls/ hr Q3H IV-CENTRAL 12/01/16 08:30 12/01/16 14:29 12/01/16 08:24 Vital Signs / I&O Vital Signs Date Time Temp Pulse Resp B/P Pulse Ox O2 Delivery O2 Flow Rate FiO2 12/01/16 07:00 130 93 12/01/16 06:31 130 120/53 94 12/01/16 06:00 133 94 12/01/16 06:00 133 12/01/16 05:30 125 31 116/72 92 12/01/16 05:00 123 30 108/66 92 12/01/16 04:30 121 30 114/69 93 12/01/16 04:00 98.8 119 23 101/60 93 7/17/17 04:00 119 12/01/17 03:30 119 21 103/61 92 17/17 03:00 117 19 102/66 93 17/17 02:00 114 35 110/60 96 17/17 02:00 114 17 01:00 115 37 108/67 96 17/17 00:00 110 12/01/16 00:00 98.5 110 34 121/64 97 16/17 22:00 106 16/17 20:00 99.1 110 30 102/59 97 16/17 20:00 110 16/17 19:00 114 30 93/58 98 16/17 18:00 108 1617 18:00 108 22 83/61 91 16/17 18:00 108 22 83/61 91 16/17 17:30 103 27 101/57 96 16/17 17:00 103 29 104/57 93 16/17 17:00 103 29 104/57 93 16/17 16:30 105 28 111/62 96 16/17 16:00 98.4 105 28 108/63 96 16/17 16:00 105 16/17 16:00 98.4 105 28 108/63 96 16/17 15:30 103 18 110/63 94 16/17 15:01 109 28 98/81 97 16/17 15:00 106 28 98/81 97 16/17 14:30 100 25 105/58 97 16/17 14:00 101 25 120/63 97 16/17 14:00 101 16/17 14:00 101 25 120/63 97 16/17 12:00 94 16/17 12:00 98.1 94 25 100/58 100 16/17 10:00 96 I/O 16/17 7/16/17 7/16/17 7/17/17 7/17/17 17/17 07:00 15:00 23:00 07:00 15:00 23:00 Intake Total 175 ml 856 ml 1251 ml 738 ml Output Total 250 ml 1275 ml 551 ml 350 ml Balance -75 ml -419 ml 700 ml 388 ml Intake Oral 300 ml 500 ml IV Total 175 ml 556 ml 751 ml 738 ml Output Urine Total 250 ml 1275 ml 550 ml 350 ml Stool Total 1 ml # Voids 1 5 # Bowel Movements 1 Physical Exam GENERAL: This is a well-nourished, well-developed patient, in no apparent distress. CARDIOVASCULAR: Regular rate and rhythm without murmurs, gallops, or rubs. RESPIRATORY: Clear to auscultation. Breath sounds equal bilaterally. No wheezes , rales, or rhonchi. GASTROINTESTINAL: Abdomen soft, non-tender, nondistended. Normal active bowel sounds MUSCULOSKELETAL: Extremities without clubbing, cyanosis, or edema. NEURO: Alert & Oriented x4 to person, place, time, situation. Moves all ext x4 Laboratory Laboratory Tests Test 11/30/16 11/30/16 11/30/16 12/01/16 11:52 15:45 20:10 05:20 White Blood Count 10.5 TH/MM3 9.3 TH/MM3 11.9 TH/MM3 Red Blood Count 3.62 MIL/MM3 3.64 MIL/MM3 3.30 MIL/MM3 Hemoglobin 10.1 GM/DL 9.8 GM/DL 9.1 GM/DL Hematocrit 30.1 % 30.4 % 27.3 % Mean Corpuscular Volume 83.4 FL 83.4 FL 82.9 FL Mean Corpuscular Hemoglobin 27.9 PG 26.9 PG 27.6 PG Mean Corpuscular Hemoglobin 33.5 % 32.3 % 33.3 % Concent Red Cell Distribution Width 15.3 % 15.3 % 15.2 % Platelet Count 110 TH/MM3 109 TH/MM3 98 TH/MM3 Mean Platelet Volume 9.3 FL 8.8 FL 9.5 FL Prothrombin Time 12.8 SEC Prothromb Time International 1.2 RATIO Ratio Activated Partial 31.3 SEC Thromboplast Time Troponin I 17.10 NG/ML Neutrophils (%) (Auto) 90.8 % 89.6 % Lymphocytes (%) (Auto) 4.7 % 4.4 % Monocytes (%) (Auto) 3.4 % 5.8 % Eosinophils (%) (Auto) 0.0 % 0.0 % Basophils (%) (Auto) 1.1 % 0.2 % Neutrophils # (Auto) 8.4 TH/MM3 10.6 TH/MM3 Lymphocytes # (Auto) 0.4 TH/MM3 0.5 TH/MM3 Monocytes # (Auto) 0.3 TH/MM3 0.7 TH/MM3 Eosinophils # (Auto) 0.0 TH/MM3 0.0 TH/MM3 Basophils # (Auto) 0.1 TH/MM3 0.0 TH/MM3 CBC Comment AUTO DIFF AUTO DIFF Differential Total Cells 100 100 Counted Neutrophils % (Manual) 72 % 77 % Band Neutrophils % 23 % 17 % Lymphocytes % 2 % 2 % Monocytes % 3 % 4 % Neutrophils # (Manual) 8.8 TH/MM3 11.2 TH/MM3 Differential Comment FINAL DIFF FINAL DIFF MANUAL MANUAL Platelet Estimate LOW LOW Platelet Morphology Comment NORMAL NORMAL Red Cell Morphology Comment NORMAL Sodium Level 131 MEQ/L 132 MEQ/L Potassium Level 2.8 MEQ/L 2.9 MEQ/L Chloride Level 96 MEQ/L 97 MEQ/L Carbon Dioxide Level 24.6 MEQ/L 21.2 MEQ/L Anion Gap 10 MEQ/L 14 MEQ/L Blood Urea Nitrogen 20 MG/DL 22 MG/DL Creatinine 1.14 MG/DL 1.18 MG/DL Estimat Glomerular Filtration 66 ML/MIN 63 ML/MIN Rate Random Glucose 70 MG/DL 122 MG/DL Lactic Acid Level 2.3 mmol/L 3.6 mmol/L Calcium Level 7.8 MG/DL 7.6 MG/DL Iron Level 11 MCG/DL Total Iron Binding Capacity 269 MCG/DL Percent Iron Saturation 4.1 % Transferrin 192 MG/DL Vitamin B12 Level 345 PG/ML Total Bilirubin 0.9 MG/DL Aspartate Amino Transf 147 U/L (AST/SGOT) Alanine Aminotransferase 75 U/L (ALT/SGPT) Alkaline Phosphatase 73 U/L Total Protein 6.0 GM/DL Albumin 2.4 GM/DL Imaging Last Impressions Head CT 12/01/16 0000 Signed Impressions: Service Date/Time: Thursday, December 01, 2016 07:59 - CONCLUSION: 1. Questionable area of low attenuation left temporal lobe could be artifact versus less likely infarct. MRI may be warranted based on clinical history. 2. No midline shift or mass effect. 3. No intraparenchymal hemorrhage. Jagjit Tapia MD Abdomen/Pelvis CT 11/29/16 [id number] Signed Impressions: Service Date/Time: Wednesday, November 30, 2016 01:35 - CONCLUSION: 1. Markedly abnormal appearance of the distal esophagus consistent with the history of esophageal carcinoma. 2. Atherosclerotic calcifications of the aorta and iliac vessels. 3. Cirrhotic appearance to the liver with a mildly nodular contour present. Erik Simon MD CT Angiography 11/29/16 [id number] Signed Impressions: Service Date/Time: Wednesday, November 30, 2016 01:35 - CONCLUSION: 1. No evidence for pulmonary embolism or pneumonia. 2. Abnormal appearance of the esophagus with and soft tissue consistent with the history of carcinoma. Erik Simon MD Assessment and Plan Problem List: (1) NSTEMI (non-ST elevated myocardial infarction) Assessment and Plan: s/p PCI to LCx; continue asa/plavix/stain/brillinta (2) SCC (squamous cell carcinoma) (3) Parotid mass (4) Hypertension Assessment and Plan will be available as needed, please call with questions. Luis Enrique Quinonez MD Dec 01, 2016 09:01
[2016-12-01] MEDS: SODIUM CHLORIDE 0.9% FLUSH 10 ML FLUSH IV FLUSH PRN ×2 (09:51→21:53)
[2016-12-01] MEDS: PANTOPRAZOLE SODIUM 40 MG VIAL IV PUSH SCH ×2 (09:51→20:29)
[2016-12-01] MEDS: CLOPIDOGREL 75 MG TAB PO SCH (09:51)
[2016-12-01] MEDS: DOCUSATE SODIUM 50 MG/SENNA 8.6 MG TAB PO SCH ×2 (09:51→20:30)
[2016-12-01] MEDS: ASPIRIN 81 MG CHEW TAB PO SCH (09:51)
[2016-12-01] MEDS: METOPROLOL TARTRATE 25 MG TAB PO SCH (09:51)
--- NOTE | 2016-12-01 10:16 | PD.ONC.PN ---
Subjective Subjective Remarks Afebrile overnight. Patient confused and in restraints. Per nurse, patient had a fall overnight and is going for MRI today. blood cultures returned positive yesterday for GPC. Objective Data Date Time Temp Pulse Resp B/P Pulse Ox O2 Delivery O2 Flow Rate FiO2 12/01/16 07:00 130 93 12/01/16 06:31 130 120/53 94 12/01/16 06:00 133 94 12/01/16 06:00 133 12/01/16 05:30 125 31 116/72 92 12/01/16 05:00 123 30 108/66 92 12/01/16 04:30 121 30 114/69 93 12/01/16 04:00 98.8 119 23 101/60 93 12/01/16 04:00 119 12/01/16 03:30 119 21 103/61 92 12/01/16 03:00 117 19 102/66 93 12/01/16 02:00 114 35 110/60 96 12/01/16 02:00 114 12/01/16 01:00 115 37 108/67 96 12/01/16 00:00 110 12/01/16 00:00 98.5 110 34 121/64 97 11/30/16 22:00 106 11/30/16 20:00 99.1 110 30 102/59 97 11/30/16 20:00 110 11/30/16 19:00 114 30 93/58 98 11/30/16 18:00 108 11/30/16 18:00 108 22 83/61 91 11/30/16 18:00 108 22 83/61 91 11/30/16 17:30 103 27 101/57 96 11/30/16 17:00 103 29 104/57 93 11/30/16 17:00 103 29 104/57 93 11/30/16 16:30 105 28 111/62 96 11/30/16 16:00 98.4 105 28 108/63 96 11/30/16 16:00 105 11/30/16 16:00 98.4 105 28 108/63 96 11/30/16 15:30 103 18 110/63 94 11/30/16 15:01 109 28 98/81 97 11/30/16 15:00 106 28 98/81 97 11/30/16 14:30 100 25 105/58 97 11/30/16 14:00 101 25 120/63 97 11/30/16 14:00 101 11/30/16 14:00 101 25 120/63 97 11/30/16 12:00 94 11/30/16 12:00 98.1 94 25 100/58 100 12/01/16 12/01/16 12/01/16 07:00 15:00 23:00 Intake Total 738 ml Output Total 350 ml Balance 388 ml Result Diagram: 12/01/16 0512/01/16 05 Laboratory Results Laboratory Tests Test 11/30/16 11/30/16 11/30/16 12/01/16 11:52 15:45 20:10 05:20 White Blood Count 10.5 TH/MM3 9.3 TH/MM3 11.9 TH/MM3 Red Blood Count 3.62 MIL/MM3 3.64 MIL/MM3 3.30 MIL/MM3 Hemoglobin 10.1 GM/DL 9.8 GM/DL 9.1 GM/DL Hematocrit 30.1 % 30.4 % 27.3 % Mean Corpuscular Volume 83.4 FL 83.4 FL 82.9 FL Mean Corpuscular Hemoglobin 27.9 PG 26.9 PG 27.6 PG Mean Corpuscular Hemoglobin 33.5 % 32.3 % 33.3 % Concent Red Cell Distribution Width 15.3 % 15.3 % 15.2 % Platelet Count 110 TH/MM3 109 TH/MM3 98 TH/MM3 Mean Platelet Volume 9.3 FL 8.8 FL 9.5 FL Prothrombin Time 12.8 SEC Prothromb Time International 1.2 RATIO Ratio Activated Partial 31.3 SEC Thromboplast Time Troponin I 17.10 NG/ML Neutrophils (%) (Auto) 90.8 % 89.6 % Lymphocytes (%) (Auto) 4.7 % 4.4 % Monocytes (%) (Auto) 3.4 % 5.8 % Eosinophils (%) (Auto) 0.0 % 0.0 % Basophils (%) (Auto) 1.1 % 0.2 % Neutrophils # (Auto) 8.4 TH/MM3 10.6 TH/MM3 Lymphocytes # (Auto) 0.4 TH/MM3 0.5 TH/MM3 Monocytes # (Auto) 0.3 TH/MM3 0.7 TH/MM3 Eosinophils # (Auto) 0.0 TH/MM3 0.0 TH/MM3 Basophils # (Auto) 0.1 TH/MM3 0.0 TH/MM3 CBC Comment AUTO DIFF AUTO DIFF Differential Total Cells 100 100 Counted Neutrophils % (Manual) 72 % 77 % Band Neutrophils % 23 % 17 % Lymphocytes % 2 % 2 % Monocytes % 3 % 4 % Neutrophils # (Manual) 8.8 TH/MM3 11.2 TH/MM3 Differential Comment FINAL DIFF FINAL DIFF MANUAL MANUAL Platelet Estimate LOW LOW Platelet Morphology Comment NORMAL NORMAL Red Cell Morphology Comment NORMAL Sodium Level 131 MEQ/L 132 MEQ/L Potassium Level 2.8 MEQ/L 2.9 MEQ/L Chloride Level 96 MEQ/L 97 MEQ/L Carbon Dioxide Level 24.6 MEQ/L 21.2 MEQ/L Anion Gap 10 MEQ/L 14 MEQ/L Blood Urea Nitrogen 20 MG/DL 22 MG/DL Creatinine 1.14 MG/DL 1.18 MG/DL Estimat Glomerular Filtration 66 ML/MIN 63 ML/MIN Rate Random Glucose 70 MG/DL 122 MG/DL Lactic Acid Level 2.3 mmol/L 3.6 mmol/L Calcium Level 7.8 MG/DL 7.6 MG/DL Iron Level 11 MCG/DL Total Iron Binding Capacity 269 MCG/DL Percent Iron Saturation 4.1 % Transferrin 192 MG/DL Vitamin B12 Level 345 PG/ML Total Bilirubin 0.9 MG/DL Aspartate Amino Transf 147 U/L (AST/SGOT) Alanine Aminotransferase 75 U/L (ALT/SGPT) Alkaline Phosphatase 73 U/L Total Protein 6.0 GM/DL Albumin 2.4 GM/DL Culture Results Microbiology Date/Time Procedure Status Source Growth 11/29/16 23:58 Aerobic Blood Culture - Preliminary Resulted Blood Peripheral Gram Positive Cocci 11/29/16 23:58 Anaerobic Blood Culture - Preliminary Resulted Gram Positive Cocci 11/30/16 00:05 Aerobic Blood Culture - Preliminary Resulted Blood Peripheral Gram Positive Cocci 11/30/16 00:05 Anaerobic Blood Culture - Preliminary Resulted Gram Positive Cocci 11/30/16 01:15 Urine Culture Received Urine Catheterized Urine Pending Imaging Studies Last [address] 12/01/16 0000 Signed Impressions: Service Date/Time: Thursday, December 01, 2016 07:59 - CONCLUSION: 1. Questionable area of low attenuation left temporal lobe could be artifact versus less likely infarct. MRI may be warranted based on clinical history. 2. No midline shift or mass effect. 3. No intraparenchymal hemorrhage. Jagjit Tapia MD Administered Medications Medications (Trade) Dose Ordered Sig/Geovanny Route PRN Reason Start Time Stop Time Status Last Admin Dose Admin Sodium Chloride (NS Flush) 2 ml UNSCH PRN IV FLUSH FLUSH AFTER USING IV ACCESS 11/30/16 02:45 12/01/16 09:51 Sodium Chloride (NS Flush) 2 ml BID IV FLUSH 11/30/16 09:00 12/01/16 07:43 Hydromorphone HCl (Dilaudid Pf Inj) 1 mg Q3H PRN IV Pain 6-10 11/30/16 02:45 12/01/16 02:44 Senna/Docusate Sodium (Rere-Colace) 1 tab BID PO 11/30/16 09:00 12/01/16 09:51 Pantoprazole Sodium (Protonix Inj) 40 mg Q12H IV PUSH 11/30/16 09:00 12/01/16 09:51 Chlorhexidine Gluconate (Chlorhexidine 2% Cloth) 3 pack DAILY@04 TOPICAL 12/01/16 04:00 12/05/16 04:01 12/01/16 04:00 Aspirin (Aspirin Chew) 81 mg DAILY PO 11/30/16 13:45 12/01/16 09:51 Clopidogrel Bisulfate (Plavix) 75 mg DAILY PO 12/01/16 09:00 12/01/16 09:51 Metoprolol Tartrate (Lopressor) 12.5 mg BID PO 11/30/16 21:00 12/01/16 09:51 Atorvastatin Calcium (Lipitor) 10 mg HS PO 11/30/16 21:00 11/30/16 21:50 Sodium Chloride (NS Flush) 5 ml Q21D IV FLUSH 11/30/16 18:00 11/30/16 18:00 Heparin Sodium (Porcine) 500 units 500 units Q21D IV FLUSH 11/30/16 18:00 11/30/16 18:04 Potassium Chloride/Sodium Chloride (KCl Inj/NS Inj) 115 ml @ 38.333 mls/ hr Q3H IV-CENTRAL 12/01/16 08:30 12/01/16 14:29 12/01/16 08:24 Objective Remarks GENERAL: Middle aged male, confused supine in bed in 4 points restraints. SKIN: Warm and dry. HEAD: Normocephalic. EYES: No injection or drainage. NECK: Supple, trachea midline. CARDIOVASCULAR: +S1/S2 RESPIRATORY: anterior ray clear GASTROINTESTINAL: Abdomen soft, non-tender, nondistended. EXTREMITIES: No cyanosis NEUROLOGICAL: confused, follows some commands, awake, oriented x 0. Assessment/Plan Problem List: (1) NSTEMI (non-ST elevated myocardial infarction) Status: Acute Plan: --Elevated troponin and ST-segment changes consistent with acute AL. --cardiology following (2) SCC (squamous cell carcinoma) Status: Acute Plan: --has a head and neck, lung malignancy which was locally advanced. --received definitive treatment with surgery. Post surgery he had positive margins and some poor risk features and he was about to get concurrent chemotherapy and radiation and adjuvantly to achieve local control of the disease--waiting to receive concurrent chemo/XRT until we have biopsied the esophageal mass --PET scan to stage his disease prior to treatment showed an esophageal mass which could be a primary esophageal cancer. --If he is found to have esophageal cancer, the preference would be to treat the esophageal cancer first with chemotherapy and radiation. (3) Esophageal mass Status: Acute Plan: --concerning for primary esophageal cancer. --Once his cardiac issues have been addressed, he will need an EGD and endoscopic ultrasound with biopsy (4) Normocytic anemia Status: Acute Plan: --transfuse packed red blood cells if his hemoglobin drops below 8. --stool hemoccult. --iron deficient --will need IV iron. 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 Esophageal mass. Hypertension. Hyperlipidemia. Coronary artery disease. Diabetes mellitus type 2. Appendectomy. liver biopsy. Head and neck surgery. Port placement. Plan 1. monitor blood cultures--obtain blood culture from line 2. start Vancomycin 3. will need IV iron once more stable. Attending Statement The exam, history, and the medical decision-making described in the above note were completed with the assistance of the mid-level provider. I reviewed and agree with the findings presented. I attest that I had a [id number] encounter with the patient on the same day, and personally performed and documented my assessment and findings in the medical record. acute clinical decompensation sepsis/respiratory distress antibiotics coverage expanded Anemia with iron deficiency Further evaluation of esophageal mass with EUS when clinically stable d/w rn Problem Qualifiers (1) Sepsis: Qualified Code: A41.9 - Sepsis, due to unspecified organism Perla Duran Dec 01, 2016 10:15 Brant Bell MD Dec 01, 2016 22:09
[2016-12-01] MEDS ORDERED: Vancomycin Consult Pharmacy 1 EA OTHER SCH ×3 (10:30→16:15)
--- NOTE | 2016-12-01 11:11 | HHI.PR ---
Subjective Remarks Follow-up non-ST elevation [place]/encephalopathy/SCC/esophageal mass and now bacteremia 12/01/16-patient seen and examined, reported fall overnight, patient this morning with AMS for which was given Ativan 2 with total. Blood culture positive x4 however currently afebrile Objective Vitals Vital Signs Date Time Temp Pulse Resp B/P Pulse Ox O2 Delivery O2 Flow Rate FiO2 12/01/16 07:00 130 93 12/01/16 06:31 130 120/53 94 12/01/16 06:00 133 94 12/01/16 06:00 133 12/01/16 05:30 125 31 116/72 92 12/01/16 05:00 123 30 108/66 92 12/01/16 04:30 121 30 114/69 93 12/01/16 04:00 98.8 119 23 101/60 93 12/01/16 04:00 119 12/01/16 03:30 119 21 103/61 92 12/01/16 03:00 117 19 102/66 93 12/01/16 02:00 114 35 110/60 96 12/01/16 02:00 114 12/01/16 01:00 115 37 108/67 96 12/01/16 00:00 110 12/01/16 00:00 98.5 110 34 121/64 97 11/30/16 22:00 106 11/30/16 20:00 99.1 110 30 102/59 97 11/30/16 20:00 110 11/30/16 19:00 114 30 93/58 98 11/30/16 18:00 108 11/30/16 18:00 108 22 83/61 91 11/30/16 18:00 108 22 83/61 91 11/30/16 17:30 103 27 101/57 96 11/30/16 17:00 103 29 104/57 93 11/30/16 17:00 103 29 104/57 93 11/30/16 16:30 105 28 111/62 96 11/30/16 16:00 98.4 105 28 108/63 96 11/30/16 16:00 105 11/30/16 16:00 98.4 105 28 108/63 96 11/30/16 15:30 103 18 110/63 94 11/30/16 15:01 109 28 98/81 97 11/30/16 15:00 106 28 98/81 97 11/30/16 14:30 100 25 105/58 97 11/30/16 14:00 101 25 120/63 97 11/30/16 14:00 101 11/30/16 14:00 101 25 120/63 97 11/30/16 12:00 94 11/30/16 12:00 98.1 94 25 100/58 100 I/O 11/30/16 11/30/16 11/30/16 12/01/16 12/01/16 12/01/16 06:59 14:59 22:59 06:59 14:59 22:59 Intake Total 175 ml 856 ml 1251 ml 738 ml Output Total 250 ml 1275 ml 551 ml 350 ml Balance -75 ml -419 ml 700 ml 388 ml Intake Oral 300 ml 500 ml IV Total 175 ml 556 ml 751 ml 738 ml Output Urine Total 250 ml 1275 ml 550 ml 350 ml Stool Total 1 ml # Voids 1 5 # Bowel Movements 1 Result Diagram: 12/01/16 0520 12/01/16 0520 Imaging Last Impressions Head CT 12/01/16 0000 Signed Impressions: Service Date/Time: Thursday, December 01, 2016 07:59 - CONCLUSION: 1. Questionable area of low attenuation left temporal lobe could be artifact versus less likely infarct. MRI may be warranted based on clinical history. 2. No midline shift or mass effect. 3. No intraparenchymal hemorrhage. Jagjit Tapia MD Abdomen/Pelvis CT 11/29/16 0839 Signed Impressions: Service Date/Time: Wednesday, November 30, 2016 01:35 - CONCLUSION: 1. Markedly abnormal appearance of the distal esophagus consistent with the history of esophageal carcinoma. 2. Atherosclerotic calcifications of the aorta and iliac vessels. 3. Cirrhotic appearance to the liver with a mildly nodular contour present. Erik Simon MD CT Angiography 11/29/16 7022 Signed Impressions: Service Date/Time: Wednesday, November 30, 2016 01:35 - CONCLUSION: 1. No evidence for pulmonary embolism or pneumonia. 2. Abnormal appearance of the esophagus with and soft tissue consistent with the history of carcinoma. Erik Simon MD Objective Remarks GENERAL: lethargic with 2 pts upper Extremities restrains SKIN: Warm and dry. HEAD: Normocephalic. EYES: No scleral icterus. No injection or drainage. NECK: Supple, trachea midline. No JVD or lymphadenopathy. CARDIOVASCULAR: Regular rate and rhythm without murmurs, gallops, or rubs. RESPIRATORY: Breath sounds equal bilaterally. No accessory muscle use. GASTROINTESTINAL: Abdomen soft, non-tender, nondistended. MUSCULOSKELETAL: No cyanosis, or edema. BACK: Nontender without obvious deformity. No CVA tenderness. A/P Problem List: (1) Intractable abdominal pain ICD Code: R10.9 Status: Acute (2) Esophageal carcinoma ICD Code: C15.9 Status: Acute (3) SCC (squamous cell carcinoma) ICD Code: C44.92 Status: Acute (4) Hypokalemia ICD Code: E87.6 Status: Acute (5) Lactic acidosis ICD Code: E87.2 Status: Acute (6) Renal insufficiency ICD Code: N28.9 Status: Acute (7) Elevated troponin ICD Code: R74.8 Status: Acute (8) DM (diabetes mellitus) ICD Code: E11.9 Status: Acute (9) Tobacco abuse ICD Code: Z72.0 Status: Acute (10) NSTEMI (non-ST elevated myocardial infarction) ICD Code: I21.4 Status: Acute (11) Bacteremia due to Gram-positive bacteria ICD Code: R78.81 Status: Acute (12) Encephalopathy, metabolic ICD Code: G93.41 Status: Acute Assessment and Plan 61-year-old man with Encephalopathy, metabolic Head CT noted and review by me with finding of Questionable area of low attenuation left temporal lobe could be artifact versus less likely infarct. Check brain MRI Blood culture positive 4 Check ammonia level Bacteremia due to gram-positive cocci Repeat blood culture Start vancomycin IV Consult infectious disease specialist Non-ST elevation [place] Status post left heart catheterization with cardiac stent placement Management per cardiology Continue with aspirin, Plavix, Lopressor 12.5 mg twice a day, Lipitor Squamous cell carcinoma Esophageal cancer Management per oncology Normochromic normocytic anemia of chronic disease Iron deficiency anemia Rule out GI bleed Treat with Venofer IV Monitor H&H Lactic acidosis Treat as in the face of bacteremia Hypokalemia Give potassium 30 mEq IV 1 now and monitor Acute renal failure Improving with gentle IV fluid hydration Monitor BUN and creatinine, avoid all nephrotoxic drugs Diabetes type 2 Continue sliding scale insulin Hold all oral hypoglycemic agents Tobacco Abuse: Pt counselled. Ativan/NicoDerm prn if needed. DVT Prophylaxis: SCD/Teds. Jagjit Asencio MD Dec 01, 2016 11:11
[2016-12-01] MEDS ORDERED: VANCOMYCIN INJ 2,100 MG in SODIUM CHLORID 0.9% 500 ML INJ 500 ML IV ONE (12:00)
--- NOTE | 2016-12-01 12:45 | RADRPT ---
EXAM DATE/TIME: 12/01/2016 12:07 [facility] COMPARISON: No previous studies available for comparison. INDICATIONS : Post fall with abnormal CT with right sided facial droop. MEDICAL HISTORY : Hypertension. Diabetes mellitus type 2. Hepatitis C. squamous cell SURGICAL HISTORY : Appendectomy. cardiac cath with stent 11/30 ENCOUNTER: Subsequent ACUITY: 2 day PAIN SCORE: 0/10 LOCATION: cranial TECHNIQUE: Multiplanar, multisequence MRI of the brain was performed without contrast. FINDINGS: CEREBRUM: The ventricles are normal for age. No evidence of midline shift, mass lesion, hemorrhage or acute in farction. No extraaxial fluid collections are seen. The pituitary gland and suprasellar cistern are normal in configuration. WHITE MATTER: No significant signal abnormalities are seen in the white matter. POSTERIOR FOSSA: The cerebellum and brainstem are intact. The 4th ventricle is midline. The cerebellopontine angle is unremarkable. The cerebellar tonsils are normal in position. DIFFUSION IMAGING: No focal areas of restricted diffusion are seen. No evidence of acute infarction. EXTRACRANIAL: The visualized portions of the orbits and paranasal sinuses are unremarkable. CONCLUSION: Normal examination. Barrett Rodriguez MD on December 01, 2016 at 12:44 Board Certified Radiologist. This report was verified electronically.
[2016-12-01] MEDS ORDERED: LORazepam 2 MG TAB PO PRN (13:00)
[2016-12-01] MEDS ORDERED: LORazepam 2 MG/ML VIAL IV PUSH PRN ×3 (13:00)
[2016-12-01] MEDS ORDERED: THIAMINE INJ 100 MG in SODIUM CHLORIDE 0.9% INJ 100 ML IV SCH (13:00)
[2016-12-01] MEDS ORDERED: SODIUM CHLOR 0.9% 1000 ML INJ 1,000 ML IV ONE ×2 (13:00)
[2016-12-01] MEDS ORDERED: LORazepam 1 MG TAB PO PRN (13:00)
[2016-12-01] MEDS ORDERED: FLUMAZENIL 0.5 MG/5 ML VIAL IV PUSH PRN (13:00)
--- NOTE | 2016-12-01 13:07 | PD.CONS ---
[facility] Service Critical Care Medicine Consult Requested By Dr. 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 He was hypotensive, febrile up to 101 and received IV fluid resuscitation with improvement in his blood pressure. EKG showed ST-T wave changes, and troponin was elevated and peaked at 17.1. The patient has been evaluated by cardiology. For NSTEMI patient underwent PCI with bare metal stent to LCx by Dr. Krause on 11/30/16. The patient had a CT of the abdomen and pelvis on admission which showed marked soft tissue thickening in the distal esophagus concerning for esophageal cancer. The patient was also noted to have liver cirrhosis and mild splenomegaly. Patient has a history of alcohol intake but according to the girlfriend has not had alcoholic drinks for several months. CTA no evidence of pulmonary embolism or pneumonia. Critical care was consulted today for altered mentation, persistent fever, MSSA bacteremia and worsening sepsis. Apparently patient was agitated overnight requiring restraints. He also sustained a fall when he tried to climb out of the bed. CT of the head was negative except for a possible artifact left temporal region. An MRI which was done today came back negative. On my evaluation the ICU patient was very lethargic and tachypneic breathing approximately 35-40. ABG showed respiratory alkalosis. His altered mentation is most likely secondary to severe sepsis, alcohol withdrawal seems less likely. Blood cultures 4/4 growing MSSA, lactic acid 3,6. Review of Systems ROS Limitations: Clinical Condition, Altered Mental Status Past Family Social History Allergies: Coded Allergies: Penicillin (Verified Allergy, Mild, Hives, 11/12/16) Past Medical History Squamous cell carcinoma of the parotid gland Esophageal mass NSTEMI this admission s/p cath with PCI Coronary artery disease Dyslipidemia Diabetes Hypertension Past Surgical History Appendectomy Liver Biopsy Port Placement Surgical resection for left parotid squamous cell cancer Reported Medications B-12 (Cyanocobalamin) 1,000 Mcg Subl 1,000 Mcg PO DAILY Vitamin D3 (Cholecalciferol) 1,000 Unit Tab 1,000 Units PO DAILY Tramadol (Tramadol HCl) 50 Mg Tab 50 Mg PO Q8H PRN Omeprazole 20 Mg Tab 20 Mg PO DAILY Levothyroxine (Levothyroxine Sodium) 50 Mcg Tab 50 Mcg PO DAILY Atorvastatin (Atorvastatin Calcium) 40 Mg Tab 40 Mg PO HS Amlodipine (Amlodipine Besylate) 10 Mg Tab 10 Mg PO DAILY Losartan (Losartan Potassium) 100 Mg Tab 100 Mg PO DAILY Metformin (Metformin HCl) 1,000 Mg Tab 1,000 Mg PO BIDPC With meals Glipizide 10 Mg Tab 20 Mg PO BIDAC Lantus Inj (Insulin Glargine) 1,000 Unit/10 Ml Vial 40 Units SQ HS Active Ordered Medications Reviewed medications Family History Unable to obtain due to altered mental status Social History One pack a day smoker, apparently quit a week Consumes a few alcoholic beverages a few times a week Physical Exam Vital Signs Vital Signs Date Time Temp Pulse Resp B/P Pulse Ox O2 Delivery O2 Flow Rate FiO2 12/01/16 07:00 130 93 12/01/16 06:31 130 120/53 94 12/01/16 06:00 133 94 12/01/16 06:00 133 12/01/16 05:30 125 31 116/72 92 12/01/16 05:00 123 30 108/66 92 12/01/16 04:30 121 30 114/69 93 12/01/16 04:00 98.8 119 23 101/60 93 12/01/16 04:00 119 12/01/16 03:30 119 21 103/61 92 12/01/16 03:00 117 19 102/66 93 12/01/16 02:00 114 35 110/60 96 12/01/16 02:00 114 12/01/16 01:00 115 37 108/67 96 12/01/16 00:00 110 12/01/16 00:00 98.5 110 34 121/64 97 11/30/16 22:00 106 11/30/16 20:00 99.1 110 30 102/59 97 11/30/16 20:00 110 11/30/16 19:00 114 30 93/58 98 11/30/16 18:00 108 11/30/16 18:00 108 22 83/61 91 11/30/16 18:00 108 22 83/61 91 11/30/16 17:30 103 27 101/57 96 11/30/16 17:00 103 29 104/57 93 11/30/16 17:00 103 29 104/57 93 11/30/16 16:30 105 28 111/62 96 11/30/16 16:00 98.4 105 28 108/63 96 11/30/16 16:00 105 11/30/16 16:00 98.4 105 28 108/63 96 11/30/16 15:30 103 18 110/63 94 11/30/16 15:01 109 28 98/81 97 11/30/16 15:00 106 28 98/81 97 11/30/16 14:30 100 25 105/58 97 11/30/16 14:00 101 25 120/63 97 11/30/16 14:00 101 11/30/16 14:00 101 25 120/63 97 Physical Exam GENERAL: Critically ill 61-year-old male who is very lethargic and unable to answer any questions SKIN: Warm and dry. HEAD: Normocephalic. EYES: No scleral icterus. No injection or drainage. ENT: Well healed surgical scars from L parotid resection, and neck dissection NECK: Supple, trachea midline. No JVD or lymphadenopathy. CARDIOVASCULAR: Sinus tachycardia without murmurs, gallops, or rubs. Hypertensive RESPIRATORY: Breath sounds equal bilaterally. No accessory muscle use. GASTROINTESTINAL: Abdomen soft, diffuse tenderness, no guarding nondistended. MUSCULOSKELETAL: Right groin catheterization site without hematoma BACK: Nontender without obvious deformity. No CVA tenderness. NEURO: Patient is very lethargic, mild left facial droop. Weakly opens eyes and will weakly follows commands 4 Laboratory Laboratory Tests Test 11/30/16 11/30/16 12/01/16 15:45 20:10 05:20 White Blood Count 9.3 11.9 Red Blood Count 3.64 3.30 Hemoglobin 9.8 9.1 Hematocrit 30.4 27.3 Mean Corpuscular Volume 83.4 82.9 Mean Corpuscular Hemoglobin 26.9 27.6 Mean Corpuscular Hemoglobin 32.3 33.3 Concent Red Cell Distribution Width 15.3 15.2 Platelet Count 109 98 Mean Platelet Volume 8.8 9.5 Neutrophils (%) (Auto) 90.8 89.6 Lymphocytes (%) (Auto) 4.7 4.4 Monocytes (%) (Auto) 3.4 5.8 Eosinophils (%) (Auto) 0.0 0.0 Basophils (%) (Auto) 1.1 0.2 Neutrophils # (Auto) 8.4 10.6 Lymphocytes # (Auto) 0.4 0.5 Monocytes # (Auto) 0.3 0.7 Eosinophils # (Auto) 0.0 0.0 Basophils # (Auto) 0.1 0.0 CBC Comment AUTO DIFF AUTO DIFF Differential Total Cells 100 100 Counted Neutrophils % (Manual) 72 77 Band Neutrophils % 23 17 Lymphocytes % 2 2 Monocytes % 3 4 Neutrophils # (Manual) 8.8 11.2 Differential Comment FINAL DIFF FINAL DIFF MANUAL MANUAL Platelet Estimate LOW LOW Platelet Morphology Comment NORMAL NORMAL Red Cell Morphology Comment NORMAL Sodium Level 131 132 Potassium Level 2.8 2.9 Chloride Level 96 97 Carbon Dioxide Level 24.6 21.2 Anion Gap 10 14 Blood Urea Nitrogen 20 22 Creatinine 1.14 1.18 Estimat Glomerular Filtration 66 63 Rate Random Glucose 70 122 Lactic Acid Level 2.3 3.6 Calcium Level 7.8 7.6 Iron Level 11 Total Iron Binding Capacity 269 Percent Iron Saturation 4.1 Transferrin 192 Vitamin B12 Level 345 Total Bilirubin 0.9 Aspartate Amino Transf 147 (AST/SGOT) Alanine Aminotransferase 75 (ALT/SGPT) Alkaline Phosphatase 73 Total Protein 6.0 Albumin 2.4 Date/Time Procedure Status Source Growth 12/01/16 10:45 Aerobic Blood Culture Received Blood Peripheral Pending 12/01/16 10:45 Anaerobic Blood Culture Received Blood Peripheral Pending 11/30/16 01:15 Urine Culture Received Urine Catheterized Urine Pending 11/30/16 00:05 Aerobic Blood Culture - Final Complete Blood Peripheral Staphylococcus Aureus 11/30/16 00:05 Anaerobic Blood Culture - Final Complete Staphylococcus Aureus 11/29/16 23:58 Aerobic Blood Culture - Preliminary Resulted Blood Peripheral Staphylococcus Aureus 11/29/16 23:58 Anaerobic Blood Culture - Preliminary Resulted Gram Positive Cocci Result Diagram: 12/01/1651912/01/[address] of the brain shows low attenuation left temporal lobe compatible rule out artifact versus infarct Septic Shock Reassessment Heart: Other (tachycardic) Lungs: Diminished Skin: Warm Peripheral Pulses: Weak Right Radial Weak Left Radial Capillary Refill: Sluggish, >2 seconds Assessment and Plan Assessment and Plan NEURO: Agitated delirium Acute metabolic encephalopathy Probable alcohol withdrawal - Patient's agitated delirium encephalopathy most likely secondary to severe sepsis - Alcohol withdrawal cannot be ruled out, but girlfriend states that he quit drinking a few months ago - Ativan when necessary for anxiety withdrawal - Add Precedex if needed RESP: Respiratory insufficiency/tachypnea secondary to SIRS Tobacco abuse Probable COPD - DuoNeb every 6 hours and when necessary - IV Solu-Medrol 40 q8 hr for probable COPD exacerbation - Tachypnea seems to be related to SIRS/severe sepsis - Patient may need mechanical ventilatory support for severe sepsis CV: Lactic acidemia Hypotension Tachycardia NSTEMI - s/p PCI to LCx by Dr. Krause on 11/30/16 - Continue asa/Plavix/stain/Brilinta - Hold beta blockers due to hypotension - Normal saline 2 L bolus, and 125 ml per hour - Trend lactic acid - 2-D echo is pending at this time GI: Esophageal mass Liver cirrhosis - Keep nothing by mouth due to altered mentation, insert NGT for meds - GI consult - IV Protonix : Acute kidney insufficiency - Monitor renal function closely. Saxena catheter. - Fluid resuscitation as above ID: Severe sepsis MSSA bacteremia - 1 dose IV vancomycin given, no need for continued dosing. Start Rocephin 2 g IV every 24 hours - Infectious disease consulted by primary. 2D Echo to rule out endocarditis HEME: Squamous cell carcinoma of the left parotid gland Esophageal mass - Oncology Dr. Bell is following - Status post surgical resection. - Per Oncology definitive diagnosis of esophageal mass needed prior to starting chemoradiation for squamous cell carcinoma ENDO: Hypokalemia Diabetes Hypothyroidism - Electrolyte replacement per protocol - SSI - Continue thyroid supplementation PROPH: - Bilateral lower extremity SCDs. - Lovenox/Protonix LINES: - Utilize peripheral IVs, central line if needed. patient has port right upper chest CC time 85 min Critically male who is immunocompromised due to SCC of L parotid gland, now s/p NSTEMI, worsening sepsis and encephalopathy. Prognosis guarded at this time Code Status Full Discussed Condition With GI team Bean Delarosa MD Dec 01, 2016 13:07
[2016-12-01 13:13] LABS: BLOOD GAS BASE EXCESS -5.4 mmol/L (-2-2); BLOOD GAS CARBOXYHEMOGLOBIN 1.8 % (0-4); BLOOD GAS HCO3 17 mmol/L (22-26); BLOOD GAS METHEMOGLOBIN 0.9 % (0-2); BLOOD GAS O2 HGB SATURATION 92 % (90-100); BLOOD GAS OXYGEN CONTENT 11.4 Vol % (12.0-20.0); BLOOD GAS PCO2 22 mmHg (38-42); BLOOD GAS PO2 72 mmHg (61-120); BLOOD GAS TOTAL HGB 8.7 G/DL (12.0-16.0); CRITICAL VALUE YES; DRAW SITE LT RADIAL; LITER FLOW 4 L/M; NUMBER OF ARTERIAL PUNCTURES 1; OXYGEN DEVICE NASAL CANNULA; TEMP CORR TO 98.6; ULNAR PULSE PRESENT
[2016-12-01 13:14] LABS: STAT NO
[2016-12-01] MEDS ORDERED: cefTRIAXone INJ 2,000 MG in SODIUM CHLORIDE 0.9% INJ 100 ML IV SCH (14:00)
[2016-12-01] MEDS ORDERED: MORPHINE SULFATE 8 MG/ML INJ ONE (14:04)
[2016-12-01] MEDS ORDERED: DEXMEDETOMIDINE INJ 200 MCG in SODIUM CHLORIDE 0.9% INJ 50 ML IV SCH (14:30)
--- NOTE | 2016-12-01 14:51 | RADRPT ---
EXAM DATE/TIME: 12/01/2016 14:07 [place] COMPARISON: CHEST PA & LAT, July 17, 2011, 13:27. INDICATIONS : Respiratory disease. MEDICAL HISTORY : Hypertension. Myocardial infarction. Chronic obstructive pulmonary disease. Coronary artery disea se. Hiatal hernia. GERD. Liver disease. Hep C. Cirrhosis. SURGICAL HISTORY : Appendectomy. ENCOUNTER: Initial ACUITY: 1 day PAIN SCORE: Non-responsive. LOCATION: Bilateral chest FINDINGS: A single view of the chest demonstrates the lungs to be symmetrically aerated without evidence of mas s, infiltrate or effusion. The cardiomediastinal contours are unremarkable. Osseous structures are intact. A Port-A-Cath overlies the right chest. A degenerative thoracic spine. CONCLUSION: No acute disease. Kulwant Cowart Jr., MD on December 01, 2016 at 14:48 Board Certified Radiologist. This report was verified electronically.
[2016-12-01 15:17] LABS: MAGNESIUM 1.1 MG/DL (1.5-2.5)
--- NOTE | 2016-12-01 15:45 | PD.CONS ---
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 He underwent mohs surgery by a extension supervisor in September of 2015 and shortly after this, developed a mass near the surgical area. He was evaluated by Dr. Valdovinos in June of 2016 and then referred to [facility], where he underwent extensive head and neck surgery involving a parotidectomy and radical neck dissection in September of 2016. Because of high risk features of local recurrence with perineural invasion and positive margins, it was recommended that he have concurrent chemoradiation therapy. He was evaluated by Dr. Da Luis for radiation and seen by Dr. Bell for oncology. PET Scan (10/28/16)---- > negative examination of the head and neck, findings characteristic of esophageal neoplasm. Direct visualization is recommended. He then underwent evaluation with EGD/Colonoscopy (11/20/16)----> There was a long stricture i the mid esophagus and distal esophagus, multiple biopsies were performed, the mucosa of the stomach appeared normal, duodenal mucosa showed no abnormalities in the entire duodenum, retroflexed views revealed a small hiatal hernia; nine sessile polyps ranging from 4-12 mm in size were found at the cecum, in the ascending colon, descending colon, sigmoid colon, and rectum; polypectomy was performed using snare cautery, moderate diverticulosis was noted in the left colon, retroflexed views revealed internal grade I hemorrhoids, a digital rectal exam was performed and revealed no abnormalities of the anus. Pathology revealed invasive adenocarcinoma- distal esophagus, descending colon polyp and rectosigmoid polyp both benign hyperplastic colonic polyp, no adenomatous change or malignancy is seen. He then presented to the ER on 11/29/16 with complaints of worsening epigastric pain over the past several weeks. EMS noted that he was febrile with temperature of 101 and hypotensive with a systolic b/p in the 80's. He was then found to have a non-STEMI with chest pain and underwent emergent left heart catheterization (11/30/16) with Dr. Murillo and this revealed RCA 10% lesion mid segment, mild calcifications left main, LAD with calcification from it's proximal segment to its midsegment however, with no significant obstructive lesions, The LAD is giving off to a diagonal which has a 70% lesion in its ostial segment, left circumflex artery with a proximal clot thrombus, S/P percutaneous coronary intervention/bare metal stent to proximal left circumflex. ASA and Plavix, as well as aggressive optimization of coronary artery disease therapy with beta-blockers, statins, and long acting nitrates were recommended. Overnight, the patient became agitated and then lethargic and tachypneic. The patient was then transferred to the intensive care medical floor for altered mentation, persistent fever, and MSSA bacteremia/ sepsis. The patient is currently lethargic and unable to provide any history at this time. He went for Head CT and this revealed questionable area of low attenuation left temporal lobe, could be artifact versus less likely infarct. This was followed up with Brain and was unremarkable. Spoke to Dr. Delarosa, who feels this is more related to his sepsis. Notified oncology of pathology from recent egd- adenocarcinoma of the esophagus and they would like EUS once patient more stable. (Nga Ramos) PFSH Past Medical History HTN Parotid gland and neck cancer, squamous cell Skin cancer Hyperlipidemia CAD DM Esophageal mass Colon polyps Per emr, hx HCV, undetectable viral load as far back as 2001. Past Surgical History Appendectomy Liver Biopsy Port Placement EGD/Colonoscopy Moh procedure (Nga Ramos) Coded Allergies: Penicillin (Verified Allergy, Mild, Hives, 11/12/16) Medications Allergies Coded Allergies Type Severity Reaction Last Updated Verified Penicillin Allergy Mild Hives 11/12/16 Yes Active Scripts Medications Dose Route/Sig Days Date Category Dose Instructions B-12 (Cyanocobalamin) 1,000 Mcg Subl 1,000 Mcg PO DAILY 11/12/16 Reported Vitamin D3 (Cholecalciferol) 1,000 Unit Tab 1,000 Units PO DAILY 11/12/16 Reported Tramadol (Tramadol HCl) 50 Mg Tab 50 Mg PO Q8H PRN 11/12/16 Reported Omeprazole 20 Mg Tab 20 Mg PO DAILY 11/12/16 Reported Levothyroxine (Levothyroxine Sodium) 50 Mcg Tab 50 Mcg PO DAILY 11/12/16 Reported Atorvastatin (Atorvastatin Calcium) 40 Mg Tab 40 Mg PO HS 11/12/16 Reported Amlodipine (Amlodipine Besylate) 10 Mg Tab 10 Mg PO DAILY 11/12/16 Reported Losartan (Losartan Potassium) 100 Mg Tab 100 Mg PO DAILY 11/12/16 Reported Metformin (Metformin HCl) 1,000 Mg Tab 1,000 Mg PO BIDPC 11/12/16 Reported With meals Glipizide 10 Mg Tab 20 Mg PO BIDAC 11/12/16 Reported Take 30 minutes before a meal Lantus Inj (Insulin Glargine) 1,000 Unit/10 Ml Vial 40 Units SQ HS 11/12/16 Reported [atenolo/-01] 1 Tab PO DAILY 03/19/13 Rx [Eye Vitamin] 1 Tab PO DAILY 08/27/11 Reported Family History Unable to obtain. Social History According to EMR: Drinks occasionally. Smokes 1ppd. Negative for drugs. ( Nga Ramos) Review of Systems ROS Unable to obtain. (Nga Ramos) GI Exam Vitals I&O Vital Signs Date Time Temp Pulse Resp B/P Pulse Ox O2 Delivery O2 Flow Rate FiO2 12/01/16 13:12 97 Nasal Cannula 4.00 12/01/16 07:00 130 93 12/01/16 06:31 130 120/53 94 12/01/16 06:00 133 94 12/01/16 06:00 133 12/01/16 05:30 125 31 116/72 92 12/01/16 05:00 123 30 108/66 92 12/01/16 04:30 121 30 114/69 93 12/01/16 04:00 98.8 119 23 101/60 93 12/01/16 04:00 119 12/01/16 03:30 119 21 103/61 92 12/01/16 03:00 117 19 102/66 93 12/01/16 02:00 114 35 110/60 96 12/01/16 02:00 114 12/01/16 01:00 115 37 108/67 96 12/01/16 00:00 110 12/01/16 00:00 98.5 110 34 121/64 97 11/30/16 22:00 106 11/30/16 20:00 99.1 110 30 102/59 97 11/30/16 20:00 110 11/30/16 19:00 114 30 93/58 98 11/30/16 18:00 108 11/30/16 18:00 108 22 83/61 91 11/30/16 18:00 108 22 83/61 91 11/30/16 17:30 103 27 101/57 96 11/30/16 17:00 103 29 104/57 93 11/30/16 17:00 103 29 104/57 93 11/30/16 16:30 105 28 111/62 96 11/30/16 16:00 98.4 105 28 108/63 96 11/30/16 16:00 105 11/30/16 16:00 98.4 105 28 108/63 96 11/30/16 15:30 103 18 110/63 94 I/O 11/30/16 11/30/16 11/30/16 12/01/16 12/01/16 12/01/16 06:59 14:59 22:59 06:59 14:59 22:59 Intake Total 175 ml 856 ml 1251 ml 738 ml Output Total 250 ml 1275 ml 551 ml 350 ml Balance -75 ml -419 ml 700 ml 388 ml Intake Oral 300 ml 500 ml IV Total 175 ml 556 ml 751 ml 738 ml Output Urine Total 250 ml 1275 ml 550 ml 350 ml Stool Total 1 ml # Voids 1 5 # Bowel Movements 1 Imaging Last Impressions Head CT 12/01/16 0000 Signed Impressions: Service Date/Time: Thursday, December 01, 2016 07:59 - CONCLUSION: 1. Questionable area of low attenuation left temporal lobe could be artifact versus less likely infarct. MRI may be warranted based on clinical history. 2. No midline shift or mass effect. 3. No intraparenchymal hemorrhage. Jagjit Tapia MD Chest X-Ray 12/01/16 0000 Signed Impressions: Service Date/Time: Thursday, December 01, 2016 14:07 - CONCLUSION: No acute disease. Kulwant oCwart Jr., MD Brain MRI 12/01/16 0000 Signed Impressions: Service Date/Time: Thursday, December 01, 2016 12:07 - CONCLUSION: Normal examination. Barrett Rodriguez MD Abdomen/Pelvis CT 11/29/16 [id number] Signed Impressions: Service Date/Time: Wednesday, November 30, 2016 01:35 - CONCLUSION: 1. Markedly abnormal appearance of the distal esophagus consistent with the history of esophageal carcinoma. 2. Atherosclerotic calcifications of the aorta and iliac vessels. 3. Cirrhotic appearance to the liver with a mildly nodular contour present. Erik Simon MD CT Angiography 11/29/16 [id number] Signed Impressions: Service Date/Time: Wednesday, November 30, 2016 01:35 - CONCLUSION: 1. No evidence for pulmonary embolism or pneumonia. 2. Abnormal appearance of the esophagus with and soft tissue consistent with the history of carcinoma. Erik Simon MD Laboratory Test 11/30/16 11/30/16 12/01/16 12/01/16 15:45 20:10 05:20 13:04 White Blood Count 9.3 TH/MM3 11.9 TH/MM3 Red Blood Count 3.64 MIL/MM3 3.30 MIL/MM3 Hemoglobin 9.8 GM/DL 9.1 GM/DL Hematocrit 30.4 % 27.3 % Mean Corpuscular Volume 83.4 FL 82.9 FL Mean Corpuscular Hemoglobin 26.9 PG 27.6 PG Mean Corpuscular Hemoglobin 32.3 % 33.3 % Concent Red Cell Distribution Width 15.3 % 15.2 % Platelet Count 109 TH/MM3 98 TH/MM3 Mean Platelet Volume 8.8 FL 9.5 FL Neutrophils (%) (Auto) 90.8 % 89.6 % Lymphocytes (%) (Auto) 4.7 % 4.4 % Monocytes (%) (Auto) 3.4 % 5.8 % Eosinophils (%) (Auto) 0.0 % 0.0 % Basophils (%) (Auto) 1.1 % 0.2 % Neutrophils # (Auto) 8.4 TH/MM3 10.6 TH/MM3 Lymphocytes # (Auto) 0.4 TH/MM3 0.5 TH/MM3 Monocytes # (Auto) 0.3 TH/MM3 0.7 TH/MM3 Eosinophils # (Auto) 0.0 TH/MM3 0.0 TH/MM3 Basophils # (Auto) 0.1 TH/MM3 0.0 TH/MM3 CBC Comment AUTO DIFF AUTO DIFF Differential Total Cells 100 100 Counted Neutrophils % (Manual) 72 % 77 % Band Neutrophils % 23 % 17 % Lymphocytes % 2 % 2 % Monocytes % 3 % 4 % Neutrophils # (Manual) 8.8 TH/MM3 11.2 TH/MM3 Differential Comment FINAL DIFF FINAL DIFF MANUAL MANUAL Platelet Estimate LOW LOW Platelet Morphology Comment NORMAL NORMAL Red Cell Morphology Comment NORMAL Sodium Level 131 MEQ/L 132 MEQ/L Potassium Level 2.8 MEQ/L 2.9 MEQ/L Chloride Level 96 MEQ/L 97 MEQ/L Carbon Dioxide Level 24.6 MEQ/L 21.2 MEQ/L Anion Gap 10 MEQ/L 14 MEQ/L Blood Urea Nitrogen 20 MG/DL 22 MG/DL Creatinine 1.14 MG/DL 1.18 MG/DL Estimat Glomerular Filtration 66 ML/MIN 63 ML/MIN Rate Random Glucose 70 MG/DL 122 MG/DL Lactic Acid Level 2.3 mmol/L 3.6 mmol/L Calcium Level 7.8 MG/DL 7.6 MG/DL Iron Level 11 MCG/DL Total Iron Binding Capacity 269 MCG/DL Percent Iron Saturation 4.1 % Transferrin 192 MG/DL Vitamin B12 Level 345 PG/ML Total Bilirubin 0.9 MG/DL Aspartate Amino Transf 147 U/L (AST/SGOT) Alanine Aminotransferase 75 U/L (ALT/SGPT) Alkaline Phosphatase 73 U/L Total Protein 6.0 GM/DL Albumin 2.4 GM/DL Blood Gas Puncture Site LT RADIAL Blood Gas Patient Temperature 98.6 Blood Gas HCO3 17 mmol/L Blood Gas Base Excess -5.4 mmol/L Blood Gas Oxygen Saturation 92 % Arterial Blood pH 7.51 Arterial Blood Partial 22 mmHg Pressure CO2 Arterial Blood Partial 72 mmHg Pressure O2 Arterial Blood Oxygen Content 11.4 Vol % Arterial Blood 1.8 % Carboxyhemoglobin Arterial Blood Methemoglobin 0.9 % Blood Gas Hemoglobin 8.7 G/DL Oxygen Delivery Device NASAL CANNULA Blood Gas Liter Flow 4 L/M Date/Time Procedure Status Source Growth 12/01/16 10:45 Aerobic Blood Culture Received Blood Peripheral Pending 12/01/16 10:45 Anaerobic Blood Culture Received Blood Peripheral Pending 11/30/16 01:15 Urine Culture - Preliminary Resulted Urine Catheterized Urine Staphylococcus Aureus 11/30/16 00:05 Aerobic Blood Culture - Final Complete Blood Peripheral Staphylococcus Aureus 11/30/16 00:05 Anaerobic Blood Culture - Final Complete Staphylococcus Aureus 11/29/16 23:58 Aerobic Blood Culture - Preliminary Resulted Blood Peripheral Staphylococcus Aureus 11/29/16 23:58 Anaerobic Blood Culture - Preliminary Resulted Gram Positive Cocci Physical Examination HEENT: Normocephalic; atraumatic; no jaundice. CHEST: Resp shallow, tachypneic, RR 30. O2 4L via N/C. Diminished. CARDIAC: ST, hypotensive. ABDOMEN: Soft, nondistended, nontender; no hepatosplenomegaly; bowel sounds are present in all four quadrants. EXTREMITIES: No clubbing, cyanosis, or edema. SKIN: Normal; no rash; no jaundice. BODY LINE FINISHER: Lethargic, follows simple commands intermittently. Unable to provide history (RamosNga Mcwilliamsbeatriz CORNEJO) Assessment and Plan Plan ASSESSMENT: - Esophageal cancer. PET Scan (10/28/16)----> negative examination of the head and neck, findings characteristic of esophageal neoplasm. S/P EGD/Colonoscopy (11/20/16)----> There was a long stricture i the mid esophagus and distal esophagus, multiple biopsies were performed, the mucosa of the stomach appeared normal, duodenal mucosa showed no abnormalities in the entire duodenum, retroflexed views revealed a small hiatal hernia; nine sessile polyps ranging from 4-12 mm in size were found at the cecum, in the ascending colon, descending colon, sigmoid colon, and rectum; polypectomy was performed using snare cautery, moderate diverticulosis was noted in the left colon, retroflexed views revealed internal grade I hemorrhoids, a digital rectal exam was performed and revealed no abnormalities of the anus. Pathology revealed invasive adenocarcinoma- distal esophagus, descending colon polyp and rectosigmoid polyp both benign hyperplastic colonic polyp, no adenomatous change or malignancy is seen. D/W Oncology, plan is for EUS when more stable. - Dysphagia. Pt too lethargic to take po. [facility] would like to place NGT for meds if okay with GI. - Abnormal imaging of the liver on CT scan, consistent with cirrhosis. Abdomen/ Pelvis CT (11/29/16)----> 1. Markedly abnormal appearance of the distal esophagus consistent with the history of esophageal carcinoma. 2. Atherosclerotic calcifications of the aorta and iliac vessels. 3. Cirrhotic appearance to the liver with a mildly nodular contour present. Unclear if he has hx of cirrhosis. There is mention of hx of HCV in EMR, but patient has had undetectable viral load as far back as 2001. Unclear if he had true infection vs. if he was treated. Iron saturation 4.1%, T. Bili 0.9 , AST 147, ALT 75, Alk Phosph 73. Platelets 98, PT 12.8, INR 1.2, Albumin 2.4. Labs and imaging consistent with cirrhosis. - Sepsis/Bacteremia/UTI. Urine and Bcx with Staphylococcus aureus. Ceftriaxone. - AMS, Acute metabolic encephalopathy. Head CT (12/01/16)-----> 1. Questionable area of low attenuation left temporal lobe could be artifact versus less likely infarct. MRI may be warranted based on clinical history. 2. No midline shift or mass effect. 3. No intraparenchymal hemorrhage. Brain MRI (12/01/16 )----> Normal examination. - Resp. Insuff. Chest X-Ray (12/01/16)----> No acute disease. - NSTEMI, CAD. S/P left heart catheterization (11/30/16) with Dr. Murillo and this revealed RCA 10% lesion mid segment, mild calcifications left main, LAD with calcification from it's proximal segment to its midsegment however, with no significant obstructive lesions, The LAD is giving off to a diagonal which has a 70% lesion in its ostial segment, left circumflex artery with a proximal clot thrombus, S/P percutaneous coronary intervention/bare metal stent to proximal left circumflex. ASA and Plavix, as well as aggressive optimization of coronary artery disease. Unable to take PO at this time and CCM requesting NGT if able for ASA/Plavix. 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 S/P mohs surgery by a extension supervisor in September of 2015 and shortly after this, developed a mass near the surgical area. S/P at [facility] with Dr. Valdovinos in June of 2016----> underwent extensive head and neck surgery involving a parotidectomy and radical neck dissection in September of 2016. Because of high risk features of local recurrence with perineural invasion and positive margins, it was recommended that he have concurrent chemoradiation therapy. He was evaluated by Dr. Cross for radiation and seen by Dr. Bell for oncology. PET Scan ()----> negative examination of the head and neck, findings characteristic of esophageal neoplasm. Direct visualization is recommended. - Hx HTN (now hypotensive), Hyperlipidemia, DM. per attending. PLAN: - Place small NGT/[facility] for meds/nutrition - Call Out Operator evaluation for TF recommendations - AFP, TERRIE, ASMA, AMA - Ceruloplasmin, ALpha 1 Antitrypsin - Ferritin level - Monitor CBC, CMP, PT/INR - EUS when more stable - Supportive care - Further recommendations to follow based on results of above - Pt seen and examined by Dr. Kelly and myself and this note is written on her behalf (Nga Ramos) Physician Comments seen, examined agree with above ok for a small ngt (Mai Kelly MD) Nga Ramos Dec 01, 2016 15:45 Mai Kelly MD Dec 01, 2016 18:29
[2016-12-01] MEDS: RESP: ALBUTEROL 2.5 MG/IPRATROPIUM 0.5 MG NEB (SCH) NEB ×2 (15:48→22:01)
--- NOTE | 2016-12-01 16:27 | PD.CONS ---
History of Present Illness Service Infectious disease Consult Requested By Dr Asencio Reason for Consult Evaluate patient with positive blood culture Primary Care Physician Landon Abad MD Diagnoses: History of Present Illness Patient seen and examined. Records reviewed. Patient is a 61-year-old male, currently lethargic, and unable to give any history. History has been obtained from the chart. 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 It was reportedly malignant as well. He presented to the hospital complaining of generalized weakness, abdominal pain and progressive swallowing difficulty over the last 3 weeks. Evaluation in the emergency room revealed abnormal EKG, and he underwent cardiac catheterization. He had non-ST MN, and had revascularization with stent placement of his left circumflex artery. Patient is spiked to 103, and there were 2 blood cultures done yesterday that are now reported as growing staph aureus. Patient currently has a Saxena catheter. There is a lot of sediment in his urine, and his urine culture is also showing staph aureus. CT of the abdomen and pelvis did not show any abnormality except the soft tissue mass in the esophagus. He had atherosclerosis of his vasculature. There was also evidence of possible liver cirrhosis. Patient is being evaluated for chemotherapy and radiation, but he has not been started. He had an Pbarqb-b-Pqta placement on November 12 on his right upper chest. Patient currently is quite lethargic, and looks short of breath. He is on nasal O2. His hemodynamics are okay and he is not on pressors. Chest x-ray is okay. CT of the head showed questionable infarct, but the MRI of the brain is negative. Patient also had an echocardiogram, and result is still pending. Repeat blood cultures were done and those are still pending. Infectious disease consultation has been requested to evaluate the patient. Review of Systems ROS Limitations: Clinical Condition, Altered Mental Status, Poor Historian Constitutional: COMPLAINS OF: Fever Gastrointestinal: COMPLAINS OF: Abdominal pain, Difficulty Swallowing Past Family Social History Allergies: Coded Allergies: Penicillin (Verified Allergy, Mild, Hives, 11/12/16) Past Medical History Hypertension Hyperlipidemia CAD Diabetes 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 and he had good margins Recurrent squamous cell carcinoma on the left face, with involvement of the parotid gland, status post surgery at [facility] Recently found to have esophageal mass Past Surgical History Appendectomy Liver Biopsy Resection of a squamous cell carcinoma on the left cheek in 2011 Extensive surgery on the left face and neck for recurrent squamous cell carcinoma Port Placement November 12, 2016 Active Ordered Medications Tylenol Albuterol Aspirin Lipitor Atropine Dulcolax Rocephin Plavix Heparin Dilaudid Lactulose Ativan MOM Zofran Oxycodone Protonix Rere-Colace Senokot Thiamine IV vancomycin Family History Noncontributory Social History Drinks occasionally. Smokes 1ppd. Negative for drugs. Physical Exam Vital Signs Vital Signs Date Time Temp Pulse Resp B/P Pulse Ox O2 Delivery O2 Flow Rate FiO2 12/01/16 14:00 113 12/01/16 13:12 97 Nasal Cannula 4.00 12/01/16 12:00 103.4 109 32 89/61 94 12/01/16 10:00 117 12/01/16 08:00 99.0 114 28 86/52 93 12/01/16 08:00 114 12/01/16 07:00 130 93 12/01/16 06:31 130 120/53 94 12/01/16 06:00 133 94 12/01/16 06:00 133 12/01/16 05:30 125 31 116/72 92 12/01/16 05:00 123 30 108/66 92 12/01/16 04:30 121 30 114/69 93 12/01/16 04:00 98.8 119 23 101/60 93 12/01/16 04:00 119 12/01/16 03:30 119 21 103/61 92 12/01/16 03:00 117 19 102/66 93 12/01/16 02:00 114 35 110/60 96 12/01/16 02:00 114 12/01/16 01:00 115 37 108/67 96 12/01/16 00:00 110 12/01/16 00:00 98.5 110 34 121/64 97 11/30/16 22:00 106 11/30/16 20:00 99.1 110 30 102/59 97 11/30/16 20:00 110 11/30/16 19:00 114 30 93/58 98 11/30/16 18:00 108 11/30/16 18:00 108 22 83/61 91 11/30/16 18:00 108 22 83/61 91 11/30/16 17:30 103 27 101/57 96 11/30/16 17:00 103 29 104/57 93 11/30/16 17:00 103 29 104/57 93 11/30/16 16:30 105 28 111/62 96 Physical Exam GENERAL: Patient is a well-nourished, well-developeCM, eyes open, lethargic, dyspneic at rest, on nasal O2. SKIN: Warm and dry. No generalized rash, no ecchymoses. Has embolic lesions in his L big toe. HEAD: Atraumatic. Normocephalic. No temporal wasting, or tenderness. EYES: [place] conjunctiva. has petechia in both lower eyelids. Pupils equal, round and reactive to light. Extraocular movements full and intact. No scleral icterus. No injection or drainage. EARS, NOSE AND THROAT: Nose without bleeding or purulent nasal discharge. No sinus tenderness. Dry oral mucosa, lips look pale. NECK: Trachea midline. Supple and not tender, no meningeal signs CARDIOVASCULAR: Regular rate and rhythm. No murmurs, rubs or gallops heard RESPIRATORY: Clear to auscultation. Breath sounds equal bilaterally. No rales , wheezing or rhonchi. Decreased BS at bases. Port in R upper chest looks fairly unremarkable ABDOMEN: Soft, non-tender, mildly distended. Bowel sounds present and normoactive. No guarding. No rebound. No organomegaly. EXTREMITIES: No clubbing, cyanosis, or edema. No joint effusion, has good ROM. No calf tenderness. Well perfused and warm. NEUROLOGICAL: Awake, but lethargic, answering some of my questions. No babinski, no clonus. PSYCHIATRIC: lethargic LINE: No evidence of infection : Saxena in place, with sediment Laboratory Laboratory Tests Test 11/30/16 12/01/16 12/01/16 20:10 05:20 13:04 Lactic Acid Level 3.6 White Blood Count 11.9 Red Blood Count 3.30 Hemoglobin 9.1 Hematocrit 27.3 Mean Corpuscular Volume 82.9 Mean Corpuscular Hemoglobin 27.6 Mean Corpuscular Hemoglobin 33.3 Concent Red Cell Distribution Width 15.2 Platelet Count 98 Mean Platelet Volume 9.5 Neutrophils (%) (Auto) 89.6 Lymphocytes (%) (Auto) 4.4 Monocytes (%) (Auto) 5.8 Eosinophils (%) (Auto) 0.0 Basophils (%) (Auto) 0.2 Neutrophils # (Auto) 10.6 Lymphocytes # (Auto) 0.5 Monocytes # (Auto) 0.7 Eosinophils # (Auto) 0.0 Basophils # (Auto) 0.0 CBC Comment AUTO DIFF Differential Total Cells 100 Counted Neutrophils % (Manual) 77 Band Neutrophils % 17 Lymphocytes % 2 Monocytes % 4 Neutrophils # (Manual) 11.2 Differential Comment FINAL DIFF MANUAL Platelet Estimate LOW Platelet Morphology Comment NORMAL Sodium Level 132 Potassium Level 2.9 Chloride Level 97 Carbon Dioxide Level 21.2 Anion Gap 14 Blood Urea Nitrogen 22 Creatinine 1.18 Estimat Glomerular Filtration 63 Rate Random Glucose 122 Calcium Level 7.6 Magnesium Level 1.1 Total Bilirubin 0.9 Aspartate Amino Transf 147 (AST/SGOT) Alanine Aminotransferase 75 (ALT/SGPT) Alkaline Phosphatase 73 Total Protein 6.0 Albumin 2.4 Thyroid Stimulating Hormone 0.555 3rd Gen Blood Gas Puncture Site LT RADIAL Blood Gas Patient Temperature 98.6 Blood Gas HCO3 17 Blood Gas Base Excess -5.4 Blood Gas Oxygen Saturation 92 Arterial Blood pH 7.51 Arterial Blood Partial 22 Pressure CO2 Arterial Blood Partial 72 Pressure O2 Arterial Blood Oxygen Content 11.4 Arterial Blood 1.8 Carboxyhemoglobin Arterial Blood Methemoglobin 0.9 Blood Gas Hemoglobin 8.7 Oxygen Delivery Device NASAL CANNULA Blood Gas Liter Flow 4 Date/Time Procedure Status Source Growth 12/01/16 14:04 Aerobic Blood Culture Received Blood Line Pending 12/01/16 14:04 Anaerobic Blood Culture Received Blood Line Pending 11/30/16 01:15 Urine Culture - Preliminary Resulted Urine Catheterized Urine Staphylococcus Aureus 11/30/16 00:05 Aerobic Blood Culture - Final Complete Blood Peripheral Staphylococcus Aureus 11/30/16 00:05 Anaerobic Blood Culture - Final Complete Staphylococcus Aureus 11/29/16 23:58 Aerobic Blood Culture - Preliminary Resulted Blood Peripheral Staphylococcus Aureus 11/29/16 23:58 Anaerobic Blood Culture - Preliminary Resulted Gram Positive Cocci Result Diagram: 12/01/16 0520 12/01/16 0520 Imaging RADIOLOGY STUDIES/FILMS REVIEWED Head CT 12/01/16 0000 Signed Impressions: Service Date/Time: Thursday, December 01, 2016 07:59 - CONCLUSION: 1. Questionable area of low attenuation left temporal lobe could be artifact versus less likely infarct. MRI may be warranted based on clinical history. 2. No midline shift or mass effect. 3. No intraparenchymal hemorrhage. Jagjit Tapia MD Chest X-Ray 12/01/16 0000 Signed Impressions: Service Date/Time: Thursday, December 01, 2016 14:07 - CONCLUSION: No acute disease. Kulwant Cowart Jr., MD Brain MRI 12/01/16 0000 Signed Impressions: Service Date/Time: Thursday, December 01, 2016 12:07 - CONCLUSION: Normal examination. Barrett Rodriguez MD Abdomen/Pelvis CT 11/29/16 2356 Signed Impressions: Service Date/Time: Wednesday, November 30, 2016 01:35 - CONCLUSION: 1. Markedly abnormal appearance of the distal esophagus consistent with the history of esophageal carcinoma. 2. Atherosclerotic calcifications of the aorta and iliac vessels. 3. Cirrhotic appearance to the liver with a mildly nodular contour present. Erik Simon MD CT Angiography 11/29/16 2348 Signed Impressions: Service Date/Time: Wednesday, November 30, 2016 01:35 - CONCLUSION: 1. No evidence for pulmonary embolism or pneumonia. 2. Abnormal appearance of the esophagus with and soft tissue consistent with the history of carcinoma. Erik Simon MD Assessment and Plan Assessment and Plan IMPRESSION Sepsis with Staph aureus has findings of L sided endocarditis, ?port infection (usually though would have R sided endocarditis) (+) UC with Staph aureus, due to current bacteremia Recurrent squamous cell CA Esophageal CA Lethargy and SOB due to sepsis - has acidosis RECOMMENDATION Repeat BC to document clearing Continue vanco, will stop if not MRSA IV Ancef Await echo, but will need PAM Prob will need removal of his port Follow C/S Follow temps Monitor respiratory status Monitor progress I will follow along with you Thank you for this consultation Discussed Condition With D/W RN Carola Nassar MD Dec 01, 2016 16:27
--- NOTE | 2016-12-01 17:16 | RADRPT ---
EXAM DATE/TIME: 12/01/2016 16:48 [facility] COMPARISON: No previous studies available for comparison. INDICATIONS : Evaluate isabelle placement MEDICAL HISTORY : Hypertension. Myocardial infarction. Chronic obstructive pulmonary disease.Cirrhosis SURGICAL HISTORY : Appendectomy. ENCOUNTER: Initial ACUITY: 1 day PAIN SCORE: Non-responsive. LOCATION: Abdomen FINDINGS: Examination of the abdomen demonstrates a normal bowel gas pattern. Feeding tube is within the distal stomach. No free air is identified. No organomegaly is evident. Osseous structures are intact. CONCLUSION: No evidence of obstruction. Feeding tube tip in the distal stomach. Barrett Rodriguez MD on December 01, 2016 at 17:14 Board Certified Radiologist. This report was verified electronically.
[2016-12-01] MEDS ORDERED: ACETAMINOPHEN 650 MG/20.3 ML UDC PO PRN (17:30)
[2016-12-01] MEDS: ACETAMINOPHEN 325 MG TAB PO PRN (17:36)
[2016-12-01] MEDS: SODIUM CHLOR 0.9% 1000 ML INJ 1,000 ML IV SCH (17:37)
[2016-12-01 17:49] LABS: BACTERIA, URINE FEW /hpf; BLOOD, URINE LARGE (NEG); GLUCOSE,URINE TRACE mg/dL (NEG); KETONE, URINE NEG (NEG); MUCUS URINE MANY /lpf (OCC); NITRITE,URINE NEG (NEG); SQUAMOUS EPITHELIAL CELL URINE 7 /hpf (0-5); TRANSITIONAL EPI CELLS, URINE 2 /hpf
[2016-12-01 17:52] LABS: POTASSIUM 3.5 MEQ/L (3.5-5.1)
[2016-12-01 17:52] LABS: COMMENT (UR) CATH-CULTURE IND; CULTURE IF INDICATED CATH CULTURE IND; URINE COLOR LIGHT-BROWN (YELLW/STRAW)
[2016-12-01] MEDS: ceFAZolin 2 GM PREMIX 50 ML IV SCH (18:06)
[2016-12-01] MEDS: ATORVASTATIN 10 MG TAB PO SCH (20:30)
--- NOTE | 2016-12-01 21:48 | ECHRPT ---
Indication: endocarditis CONCLUSIONS Normal left ventricular size. Mild concentric left ventricular hypertrophy. The left ventricular systolic function is low normal with an estimated ejection fraction in the rang e of 50- 55%. There is mild tricuspid valve regurgitation. BP: 120 / 53 HR: 130 Rhythm: MEASUREMENTS (Male / Female) Normal Values Technical Quality:Very technically difficult study 2D ECHO LV Diastolic Diameter PLAX 5.3 cm 4.2 - 5.9 / 3.9 - 5.3 cm LV Systolic Diameter PLAX 4.3 cm IVS Diastolic Thickness 1.6 cm 0.6 - 1.0 / 0.6 - 0.9 cm LVPW Diastolic Thickness 1.1 cm 0.6 - 1.0 / 0.6 - 0.9 cm LV Relative Wall Thickness 0.5 RV Internal Dim ED PLAX 3.8 cm M-MODE Aortic Root Diameter MM 3.6 cm LA Systolic Diameter MM 3.1 cm LA Ao Ratio MM 0.9 AV Cusp Separation MM 2.2 cm FINDINGS LEFT VENTRICLE Normal left ventricular size. Mild concentric left ventricular hypertrophy. The left ventricular systolic function is low normal with an estimated ejection fraction in the rang e of 50- 55%. RIGHT VENTRICLE Normal right ventricular size and systolic function. LEFT ATRIUM The left atrial size is normal. RIGHT ATRIUM The right atrial size is normal. ATRIAL SEPTUM Normal atrial septal thickness without atrial level shunting by limited color doppler interrogation. AORTA The aortic root and proximal ascending aorta are normal in size on limited imaging. MITRAL VALVE Structurally normal mitral valve. No mitral valve stenosis or regurgitation. AORTIC VALVE Trileaflet aortic valve. No aortic valve stenosis or regurgitation. TRICUSPID VALVE There is mild tricuspid valve regurgitation. VESSELS The inferior vena cava is normal in size. PERICARDIUM No pericardial effusion. Nicole Cardona MD, FACC (Electronically Signed) Final Date:01 December 2016 21:47
[2016-12-02] VITALS (16 sets, daily range): BP systolic 82–147; BP diastolic 55–81; PULSE 97–127; RESP 12–27; TEMP 98.1–101.3; O2SAT 94–100
[2016-12-02] MEDS: LORazepam 2 MG/ML VIAL IV PUSH PRN ×2 (00:25→04:37)
[2016-12-02] MEDS: SODIUM CHLOR 0.9% 1000 ML INJ 1,000 ML IV SCH ×3 (00:25→10:46)
[2016-12-02] MEDS: ceFAZolin 2 GM PREMIX 50 ML IV SCH ×3 (01:08→18:28)
[2016-12-02] MEDS: CHLORHEXIDINE GLUCONATE 2 % 1 PACK (2 CLOTHS)(taper/protocol) TOPICAL SCH (01:09)
[2016-12-02] MEDS: RESP: ALBUTEROL 2.5 MG/IPRATROPIUM 0.5 MG NEB (SCH) NEB ×4 (04:09→21:09)
[2016-12-02 05:41] LABS: AUTOMATED NEUTROPHIL # 8.1 TH/MM3 (1.8-7.7); BASOPHIL % 0.3 % (0.0-2.0); HEMATOCRIT 23.6 % (39.0-51.0); LYMPH % 8.8 % (9.0-44.0); LYMPHOCYTE # 0.8 TH/MM3 (1.0-4.8); MEAN CELL VOLUME 82.7 FL (80.0-100.0); MEAN CORPUSCULAR HEMOGLOBIN 28.1 PG (27.0-34.0); MONO % 7.2 % (0.0-8.0); NEUT % 83.7 % (16.0-70.0); PLATELET COUNT 85 TH/MM3 (150-450); RED BLOOD COUNT 2.85 MIL/MM3 (4.50-5.90); RED CELL DISTRIBUTION WIDTH 15.7 % (11.6-17.2); WHITE BLOOD COUNT 9.6 TH/MM3 (4.0-11.0)
[2016-12-02 05:51] LABS: HEMO FLAGS AUTO DIFF
[2016-12-02] MEDS ORDERED: VANCOMYCIN INJ 2,100 MG in SODIUM CHLORID 0.9% 500 ML INJ 500 ML IV SCH (06:00)
[2016-12-02 06:16] LABS: BICARBONATE 20.8 MEQ/L (21.0-32.0); POTASSIUM 3.5 MEQ/L (3.5-5.1); TOTAL BILIRUBIN ADULT 0.8 MG/DL (0.2-1.0)
[2016-12-02 06:24] LABS: CALCIUM-PROTEIN CORRECTED 7.3 MG/DL (8.5-10.1)
[2016-12-02] MEDS ORDERED: SODIUM CHLOR 0.9% 1000 ML INJ 1,000 ML IV ONE (06:30)
[2016-12-02 06:49] LABS: OVALOCYTES 1+ (NORMAL); PLATELET ESTIMATE SMEAR LOW (NORMAL); PLATELET MORPHOLOGY ENLARGED (NORMAL); SCAN/DIFF AUTO DIFF CONFIRMED
[2016-12-02] MEDS ORDERED: methylPREDNISolone SOD SUCC 125 MG/2 ML VIAL IV PUSH STA (06:52)
[2016-12-02] MEDS: RESP: ALBUTEROL 2.5 MG/IPRATROPIUM 0.5 MG NEB (PRN) NEB (06:55)
[2016-12-02] MEDS: SODIUM CHLORIDE 0.9% FLUSH 10 ML FLUSH IV FLUSH SCH ×2 (07:14→21:22)
[2016-12-02] MEDS ORDERED: MIDAZOLAM HCL 5 MG/ML VIAL (1 ML) ONE (07:29)
[2016-12-02] MEDS ORDERED: ETOMIDATE 20 MG/10 ML VIAL ONE (07:29)
[2016-12-02] MEDS ORDERED: ROCURONIUM INJ 50 MG/5 ML VIAL ONE (07:30)
--- NOTE | 2016-12-02 07:30 | RADRPT ---
EXAM DATE/TIME: 12/02/2016 06:53 [facility] COMPARISON: CHEST SINGLE AP, December 01, 2016, 14:07. INDICATIONS : Respiratory failure, short of breath MEDICAL HISTORY : Hypertension. Myocardial infarction. Chronic obstructive pulmonary disease. GERD, hiatal hernia, liver disease, hepititis C SURGICAL HISTORY : Appendectomy. ENCOUNTER: Subsequent ACUITY: 3 days PAIN SCORE: Non-responsive. LOCATION: Bilateral chest FINDINGS: Underinflated AP view the chest demonstrates a normal-sized cardiac silhouette. Right chest wall Infu se-a-Port remains present. Lungs are underinflated with atelectasis at the lung bases. No pleural eff usion or pneumothorax is identified. The bones and soft tissues demonstrate no acute finding. CONCLUSION: Underinflated examination with atelectasis at the lung bases. Given the technique, no acute abnormali ty or significant interval change is appreciated. Washington Marroquin MD on December 02, 2016 at 7:26 Board Certified Radiologist. This report was verified electronically.
[2016-12-02] MEDS ORDERED: fentaNYL DRIP 250 ML IV SCH (08:00)
[2016-12-02] MEDS: HYDROmorphone HCL PF 1 MG/ML VIAL IV PRN (08:07)
--- NOTE | 2016-12-02 08:11 | HHI.CCPN ---
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 He was hypotensive, febrile up to 101 and received IV fluid resuscitation with improvement in his blood pressure. EKG showed ST-T wave changes, and troponin was elevated and peaked at 17.1. The patient has been evaluated by cardiology for NSTEMI. He underwent PCI with bare metal stent to LCx by Dr. Krause on 11/30/16. The patient had a CT of the abdomen and pelvis on admission which showed marked soft tissue thickening in the distal esophagus concerning for esophageal cancer. The patient was also noted to have liver cirrhosis and mild splenomegaly. Patient has a history of alcohol intake but according to the girlfriend has not had alcoholic drinks for several months. CTA no evidence of pulmonary embolism or pneumonia. Critical care was consulted 12/01 for altered mentation, persistent fever, MSSA bacteremia and worsening sepsis. Apparently patient was agitated overnight requiring restraints. He also sustained a fall when he tried to climb out of the bed. CT of the head was negative except for a possible artifact left temporal region. An MRI which was done today came back negative. On my evaluation the ICU patient was very lethargic and tachypneic breathing approximately 35-40. ABG showed respiratory alkalosis. His altered mentation is most likely secondary to severe sepsis, and possible alcohol withdrawal. Blood cultures 08/19 growing MSSA, lactic acid 3.6. SUBJ 12/02: Patient found to be tachypneic today, and in severe respiratory distress. His stat breathing treatment and IV Solu-Medrol did not improve respiratory status. Patient was emergently intubated and placed on mechanical ventilation for respiratory extremis. (Unable to visualize cords with direct laryngoscopy. With Glidescope #4 blade Grade 2 view, easy intubation). I'm told by GI that patient had workup for esophageal mass as outpatient which invasive adenocarcinoma of distal esophagus Objective Vital Signs Date Time Temp Pulse Resp B/P Pulse Ox O2 Delivery O2 Flow Rate FiO2 12/02/16 07:35 100 100 12/02/16 06:00 113 12/02/16 04:00 100.0 24 82/55 12/01/16 20:03 Nasal Cannula 4.00 Intake and Output 12/01/16 12/01/16 12/02/16 08:00 16:00 00:00 Intake Total 738 ml 3969 ml 537 ml Output Total 350 ml 830 ml 400 ml Balance 388 ml 3139 ml 137 ml Result Diagram: 12/02/16 0415 12/02/16 0415 Other Results Microbiology Date/Time Procedure Status Source Growth 11/30/16 00:05 Aerobic Blood Culture - Final Complete Blood Peripheral Staphylococcus Aureus 11/30/16 00:05 Anaerobic Blood Culture - Final Complete Staphylococcus Aureus Laboratory Tests Test 12/01/16 13:04 Blood Gas Puncture Site LT RADIAL Blood Gas Patient Temperature 98.6 Blood Gas HCO3 17 mmol/L (22-26) Blood Gas Base Excess -5.4 mmol/L (-2-2) Blood Gas Oxygen Saturation 92 % (90-100) Arterial Blood pH 7.51 (7.380-7.420) Arterial Blood Partial 22 mmHg (38-42) Pressure CO2 Arterial Blood Partial 72 mmHg Pressure O2 (61-120) Arterial Blood Oxygen Content 11.4 Vol % (12.0-20.0) Arterial Blood 1.8 % (0-4) Carboxyhemoglobin Arterial Blood Methemoglobin 0.9 % (0-2) Blood Gas Hemoglobin 8.7 G/DL (12.0-16.0) Oxygen Delivery Device NASAL CANNULA Blood Gas Liter Flow 4 L/M Imaging CT of the brain shows low attenuation left temporal lobe compatible rule out artifact versus infarct Objective Remarks GENERAL: Critically ill 61-year-old male who is very lethargic, in respiratory extremis SKIN: Warm and dry. HEAD: Normocephalic. EYES: No scleral icterus. No injection or drainage. ENT: Well healed surgical scars from L parotid resection, and neck dissection NECK: Supple, trachea midline. No JVD or lymphadenopathy. CARDIOVASCULAR: Sinus tachycardia without murmurs, gallops, or rubs. Hypotensive RESPIRATORY: Breath sounds equal bilaterally. No accessory muscle use. GASTROINTESTINAL: Abdomen soft, diffuse tenderness, no guarding nondistended. MUSCULOSKELETAL: Right groin catheterization site without hematoma BACK: Nontender without obvious deformity. No CVA tenderness. NEURO: Patient is lethargic and in severe distress. Moves all extremities equally no focal deficits A/P Assessment and Plan NEURO: Agitated delirium Acute metabolic encephalopathy Possible alcohol withdrawal - Placed on propofol and fentanyl postintubation - Patient's agitated delirium encephalopathy most likely secondary to severe sepsis - Alcohol withdrawal cannot be ruled out - Continue Thiamine, MVI RESP: Acute hypoxemic respiratory failure Acute COPD exacerbation Anterior airway Tobacco abuse - Emergently intubated and placed on mechanical ventilation - Unable to visualize cords with direct laryngoscopy. With Glidescope #4 blade Grade 2 view, easy intubation - DuoNeb every 4 hours and when necessary - IV Solu-Medrol 125 mg x1 and 60 q8 hr for COPD exacerbation - Broad spectrum ABX CV: Lactic acidemia Hypotension Tachycardia NSTEMI - s/p PCI to LCx by Dr. Krause on 11/30/16 - Continue ASA/Plavix/stain/Brilinta - Beta blockers held due to hypotension, resume if tolerated - Normal saline additional 2 L bolus, and 125 ml per hour - Trend lactic acid - 2-D echo no veg, EF 50-55% - Levophed to keep map above 65 GI: Invasive adenocarcinoma of the esophagus Liver cirrhosis - Dobhoff placed 12/02 - GI following- has biopsy proven invasive adenoca of esophagus - IV Protonix : Acute kidney failure/ATN - Monitor renal function closely. Saxena catheter. - Fluid resuscitation as above ID: Severe sepsis MSSA bacteremia - Continue Ancef and vancomycin - Infectious disease consulted by primary. 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 Bell is following - Status post surgical resection for L parotid SCC. ENDO: Hypokalemia Diabetes Hypothyroidism - Electrolyte replacement per protocol - SSI - Continue thyroid supplementation PROPH: - Bilateral lower extremity SCDs. - Lovenox/Protonix LINES: - Utilize peripheral IVs, central line if needed. patient has port right upper chest CC time 78 min excluding procedural time Critically male who is immunocompromised due to SCC of L parotid gland, now s/p NSTEMI, worsening sepsis and encephalopathy. Now intubated for acute respiratory failure, started on Levophed for septic shock, worsening renal failure. Prognosis guarded due to multi organ failure Bean Delarosa MD Dec 02, 2016 08:11
[2016-12-02] MEDS: DOCUSATE SODIUM 50 MG/SENNA 8.6 MG TAB PO SCH ×2 (08:24→21:21)
[2016-12-02] MEDS: CLOPIDOGREL 75 MG TAB PO SCH (08:24)
[2016-12-02] MEDS: PANTOPRAZOLE SODIUM 40 MG VIAL IV PUSH SCH ×2 (08:24→21:21)
[2016-12-02] MEDS: ASPIRIN 81 MG CHEW TAB PO SCH (08:24)
[2016-12-02 08:53] LABS: BLOOD GAS BASE EXCESS -9.3 mmol/L (-2-2); BLOOD GAS CARBOXYHEMOGLOBIN 1.1 % (0-4); BLOOD GAS HCO3 18 mmol/L (22-26); BLOOD GAS METHEMOGLOBIN 1.2 % (0-2); BLOOD GAS O2 HGB SATURATION 89 % (90-100); BLOOD GAS OXYGEN CONTENT 11.2 Vol % (12.0-20.0); BLOOD GAS PCO2 51 mmHg (38-42); BLOOD GAS PO2 84 mmHg (61-120); BLOOD GAS TOTAL HGB 8.9 G/DL (12.0-16.0); TEMP CORR TO 98.6
[2016-12-02 08:54] LABS: CRITICAL VALUE YES; DRAW SITE RT BRACHIAL; FIO2 70 %; NUMBER OF ARTERIAL PUNCTURES 2; OXYGEN DEVICE VENTILATOR; STAT NO; VENT SETTINGS AC/RR16/VT500/PEEP10
[2016-12-02] MEDS ORDERED: VANCOMYCIN INJ 1,250 MG in SODIUM CHLOR 0.9% 250 ML INJ 250 ML IV SCH (09:00)
--- NOTE | 2016-12-02 09:04 | RADRPT ---
EXAM DATE/TIME: 12/02/2016 08:24 [facility] COMPARISON: CHEST SINGLE AP, December 02, 2016, 6:53. INDICATIONS : Post intubation MEDICAL HISTORY : Hypertension. Myocardial infarction. Chronic obstructive pulmonary disease. GERD, hiatal hernia, hep c SURGICAL HISTORY : Appendectomy. ENCOUNTER: Subsequent ACUITY: 3 days PAIN SCORE: Non-responsive. LOCATION: Bilateral chest FINDINGS: A single view of the chest demonstrates placement of an endotracheal tube in good position. There is a right-sided Qriirg-t-Yzzw catheter in good position. Mild perihilar vascular congestion persists. T he right hemidiaphragm remains elevated. The cardiomediastinal contours are unremarkable. Osseous s tructures are intact. CONCLUSION: Mild perihilar vascular congestion. Endotracheal tube is in good position Barrett Rodriguez MD on December 02, 2016 at 9:02 Board Certified Radiologist. This report was verified electronically.
[2016-12-02] MEDS ORDERED: SODIUM BICARBONATE 8.4% INJ 50 MEQ/50 ML SYR ONE (09:06)
[2016-12-02] MEDS: ENOXAPARIN SODIUM 40 MG/0.4 ML SYRINGE SQ SCH (09:08)
[2016-12-02] MEDS ORDERED: SODIUM BICARBONATE 8.4% INJ 50 MEQ/50 ML SYR IV PUSH ONE ×2 (09:45→11:15)
--- NOTE | 2016-12-02 10:43 | PD.ONC.PN ---
Subjective Subjective Remarks Tmax 101.8 overnight. Patient intubated, sedated and on pressor support. Objective Data Date Time Temp Pulse Resp B/P Pulse Ox O2 Delivery O2 Flow Rate FiO2 12/02/16 07:35 100 100 12/02/16 06:00 113 12/02/16 04:00 100.0 97 24 82/55 94 12/02/16 04:00 97 12/02/16 02:13 20 12/02/16 02:00 105 12/02/16 00:00 108 12/02/16 00:00 101.3 108 27 88/58 94 12/01/16 22:00 107 12/01/16 20:03 96 Nasal Cannula 4.00 12/01/16 20:00 114 12/01/16 20:00 101.7 114 25 94/61 96 12/01/16 18:00 109 12/01/16 16:00 105 12/01/16 16:00 101.8 105 28 80/60 98 12/01/16 14:00 113 12/01/16 13:12 97 Nasal Cannula 4.00 12/01/16 12:00 103.4 109 32 89/61 94 12/02/16 12/02/16 12/02/16 06:59 14:59 22:59 Intake Total 720 ml Output Total 450 ml Balance 270 ml Result Diagram: 12/02/16 0415 12/02/16 0415 Laboratory Results Laboratory Tests Test 12/01/16 12/01/16 12/01/16 12/02/16 13:04 17:00 17:05 04:15 Blood Gas Puncture Site LT RADIAL Blood Gas Patient Temperature 98.6 Blood Gas HCO3 17 mmol/L Blood Gas Base Excess -5.4 mmol/L Blood Gas Oxygen Saturation 92 % Arterial Blood pH 7.51 Arterial Blood Partial 22 mmHg Pressure CO2 Arterial Blood Partial 72 mmHg Pressure O2 Arterial Blood Oxygen Content 11.4 Vol % Arterial Blood 1.8 % Carboxyhemoglobin Arterial Blood Methemoglobin 0.9 % Blood Gas Hemoglobin 8.7 G/DL Oxygen Delivery Device NASAL CANNULA Blood Gas Liter Flow 4 L/M Urine Color LIGHT-BROWN Urine Turbidity CLOUDY Urine pH 6.0 Urine Specific [place] 1.023 Urine Protein 100 mg/dL Urine Glucose (UA) TRACE mg/dL Urine Ketones NEG mg/dL Urine Occult Blood LARGE Urine Nitrite NEG Urine Bilirubin NEG Urine Urobilinogen 2.0 MG/DL Urine Leukocyte Esterase TRACE Urine RBC 13 /hpf Urine WBC 12 /hpf Urine Squamous Epithelial 7 /hpf Cells Urine Transitional Epithelial 2 /hpf Cells Urine Amorphous Sediment RARE Urine Bacteria FEW /hpf Urine Mucus MANY /lpf Microscopic Urinalysis Comment CATH-CULTURE IND Potassium Level 3.5 MEQ/L 3.5 MEQ/L Ferritin 124 NG/ML Ammonia LESS THAN 10 MCMOL/L Tumor Marker Alpha Fetoprotein 1.7 NG/ML White Blood Count 9.6 TH/MM3 Red Blood Count 2.85 MIL/MM3 Hemoglobin 8.0 GM/DL Hematocrit 23.6 % Mean Corpuscular Volume 82.7 FL Mean Corpuscular Hemoglobin 28.1 PG Mean Corpuscular Hemoglobin 34.0 % Concent Red Cell Distribution Width 15.7 % Platelet Count 85 TH/MM3 Mean Platelet Volume 10.0 FL Neutrophils (%) (Auto) 83.7 % Lymphocytes (%) (Auto) 8.8 % Monocytes (%) (Auto) 7.2 % Eosinophils (%) (Auto) 0.0 % Basophils (%) (Auto) 0.3 % Neutrophils # (Auto) 8.1 TH/MM3 Lymphocytes # (Auto) 0.8 TH/MM3 Monocytes # (Auto) 0.7 TH/MM3 Eosinophils # (Auto) 0.0 TH/MM3 Basophils # (Auto) 0.0 TH/MM3 CBC Comment AUTO DIFF Differential Comment AUTO DIFF CONFIRMED Platelet Estimate LOW Platelet Morphology Comment ENLARGED Ovalocytes 1+ Sodium Level 138 MEQ/L Chloride Level 106 MEQ/L Carbon Dioxide Level 20.8 MEQ/L Anion Gap 11 MEQ/L Blood Urea Nitrogen 41 MG/DL Creatinine 1.34 MG/DL Estimat Glomerular Filtration 55 ML/MIN Rate Random Glucose 138 MG/DL Calcium Level 6.7 MG/DL Protein Corrected Calcium 7.3 MG/DL Total Bilirubin 0.8 MG/DL Aspartate Amino Transf 240 U/L (AST/SGOT) Alanine Aminotransferase 72 U/L (ALT/SGPT) Alkaline Phosphatase 64 U/L Total Protein 5.8 GM/DL Albumin 2.1 GM/DL Test 12/02/16 12/02/16 06:35 08:39 Lactic Acid Level 1.7 mmol/L Blood Gas Puncture Site RT BRACHIAL Blood Gas Patient Temperature 98.6 Blood Gas HCO3 18 mmol/L Blood Gas Base Excess -9.3 mmol/L Blood Gas Oxygen Saturation 89 % Arterial Blood pH 7.17 Arterial Blood Partial 51 mmHg Pressure CO2 Arterial Blood Partial 84 mmHg Pressure O2 Arterial Blood Oxygen Content 11.2 Vol % Arterial Blood 1.1 % Carboxyhemoglobin Arterial Blood Methemoglobin 1.2 % Blood Gas Hemoglobin 8.9 G/DL Oxygen Delivery Device VENTILATOR Blood Gas Ventilator Setting AC/RR16/[id number]/[id number] Blood Gas Inspired Oxygen 70 % Culture Results Microbiology Date/Time Procedure Status Source Growth 11/29/16 23:58 Aerobic Blood Culture - Preliminary Resulted Blood Peripheral Staphylococcus Aureus 11/29/16 23:58 Anaerobic Blood Culture - Preliminary Resulted Gram Positive Cocci 11/30/16 00:05 Aerobic Blood Culture - Final Complete Blood Peripheral Staphylococcus Aureus 11/30/16 00:05 Anaerobic Blood Culture - Final Complete Staphylococcus Aureus 11/30/16 01:15 Urine Culture - Final Complete Urine Catheterized Urine Staphylococcus Aureus 12/01/16 10:45 Aerobic Blood Culture - Preliminary Resulted Blood Peripheral Gram Positive Cocci 12/01/16 10:45 Anaerobic Blood Culture - Preliminary Resulted Gram Positive Cocci 12/01/16 14:04 Aerobic Blood Culture - Preliminary Resulted Blood Line Gram Positive Cocci 12/01/16 14:04 Anaerobic Blood Culture Resulted Blood Line Pending 12/01/16 17:00 Urine Culture Received Urine Catheterized Urine Pending 12/01/16 20:25 Aerobic Blood Culture Received Blood Peripheral Pending 12/01/16 20:25 Anaerobic Blood Culture Received Blood Peripheral Pending 12/02/16 04:31 Aerobic Blood Culture Received Blood Peripheral Pending 12/02/16 04:31 Anaerobic Blood Culture Received Blood Peripheral Pending 12/02/16 08:10 Gram Stain Received Sputum Endotracheal Pending 12/02/16 08:10 Sputum Culture Received Sputum Endotracheal Pending Imaging Studies Last 24 hours Impressions Chest X-Ray 12/02/16 0000 Signed Impressions: Service Date/Time: Friday, December 02, 2016 08:24 - CONCLUSION: Mild perihilar vascular congestion. Endotracheal tube is in good position Barrett Rodriguez MD Chest X-Ray 12/02/16 0000 Signed Impressions: Service Date/Time: Friday, December 02, 2016 06:53 - CONCLUSION: Underinflated examination with atelectasis at the lung bases. Given the technique, no acute abnormality or significant interval change is appreciated. Washington Marroquin MD Administered Medications Medications (Trade) Dose Ordered Sig/Geovanny Route PRN Reason Start Time Stop Time Status Last Admin Dose Admin Sodium Chloride (NS Flush) 2 ml UNSCH PRN IV FLUSH FLUSH AFTER USING IV ACCESS 11/30/16 02:45 12/01/16 21:53 Sodium Chloride (NS Flush) 2 ml BID IV FLUSH 11/30/16 09:00 12/02/16 07:14 Hydromorphone HCl (Dilaudid Pf Inj) 1 mg Q3H PRN IV Pain 6-10 11/30/16 02:45 12/02/16 08:07 Senna/Docusate Sodium (Rere-Colace) 1 tab BID PO 11/30/16 09:00 12/02/16 08:24 Pantoprazole Sodium (Protonix Inj) 40 mg Q12H IV PUSH 11/30/16 09:00 12/02/16 08:24 Chlorhexidine Gluconate (Chlorhexidine 2% Cloth) 3 pack DAILY@04 TOPICAL 12/01/16 04:00 12/05/16 04:01 12/02/16 01:09 Acetaminophen (Tylenol) 325 mg Q4H PRN PO PAIN SCALE 1 TO 2 11/30/16 13:45 12/01/16 17:36 Aspirin (Aspirin Chew) 81 mg DAILY PO 11/30/16 13:45 12/02/16 08:24 Clopidogrel Bisulfate (Plavix) 75 mg DAILY PO 12/01/16 09:00 12/02/16 08:24 Metoprolol Tartrate (Lopressor) 12.5 mg BID PO 11/30/16 21:00 Hold 12/01/16 09:51 Atorvastatin Calcium (Lipitor) 10 mg HS PO 11/30/16 21:00 12/01/16 20:30 Sodium Chloride (NS Flush) 5 ml Q21D IV FLUSH 11/30/16 18:00 11/30/16 18:00 Heparin Sodium (Porcine) (Heparin Central Flush) 500 units Q21D IV FLUSH 11/30/16 18:00 11/30/16 18:04 Lorazepam (Ativan Inj) 1 mg Q4H PRN IV PUSH CIWA 8 - 10 12/01/16 13:00 12/01/16 21:52 Lorazepam 2 mg 2 mg Q2H PRN IV PUSH CIWA 11-14 12/01/16 13:00 12/02/16 04:37 Cefazolin Sodium/ Dextrose 50 ml @ 100 mls/hr Q8H IV 12/01/16 18:00 12/02/16 08:24 Sodium Chloride (NS 1000 ml Inj) 1,000 ml @ 125 mls/hr Q8H IV 12/01/16 16:30 12/02/16 08:25 Acetaminophen 650 mg 650 mg Q6H PRN PO FEVER 12/01/16 17:30 12/02/16 01:07 Vancomycin HCl/ Sodium Chloride (Vancomycin Inj/ NS 500 ml Inj) 521 ml @ 250 mls/hr Q18H IV 12/02/16 06:00 12/02/16 05:36 Enoxaparin Sodium (Lovenox Inj) 40 mg Q24H SQ 12/02/16 09:00 12/02/16 09:08 Objective Remarks GENERAL: critically ill male supine in bed intubated, sedated SKIN: Warm and dry. HEAD: Normocephalic. EYES: No injection or drainage. NECK: Supple, trachea midline. CARDIOVASCULAR: +S1/S2 RESPIRATORY: anterior ray clear. on mechanical ventilation GASTROINTESTINAL: Abdomen soft, non-tender, nondistended. EXTREMITIES: No cyanosis NEUROLOGICAL: intubated, sedated Assessment/Plan Problem List: (1) NSTEMI (non-ST elevated myocardial infarction) Status: Acute Plan: --Elevated troponin and ST-segment changes consistent with acute HI. --cardiology following --plavix and ASA (2) SCC (squamous cell carcinoma) Status: Acute Plan: --has a head and neck, lung malignancy which was locally advanced. --received definitive treatment with surgery. Post surgery he had positive margins and some poor risk features and he was about to get concurrent chemotherapy and radiation and adjuvantly to achieve local control of the disease--waiting to receive concurrent chemo/XRT until we have biopsied the esophageal mass --PET scan to stage his disease prior to treatment showed an esophageal mass which could be a primary esophageal cancer. --If he is found to have esophageal cancer, the preference would be to treat the esophageal cancer first with chemotherapy and radiation. (3) Esophageal mass Status: Acute Plan: --concerning for primary esophageal cancer. --patient had OP EGD with biopsy, pathology showed adenocarcinoma. will need EUS for staging when available. --EGD/Colonoscopy, 11/20/16--showed long stricture in the mid esophagus and distal esophagus, multiple biopsies were performed Pathology revealed invasive adenocarcinoma- distal esophagus (4) Normocytic anemia Status: Acute Plan: --transfuse packed red blood cells if his hemoglobin drops below 8. --stool hemoccult. --iron deficient --will need IV iron. (5) Sepsis Status: Acute Plan: --BC + GPC, S. 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 Esophageal mass. Hypertension. Hyperlipidemia. Coronary artery disease. Diabetes mellitus type 2. Appendectomy. liver biopsy. Head and neck surgery. Port placement. Plan 1. continue abx per ID 2. EUS per GI 3. monitor CBC, may need tx tomorrow Attending Statement The exam, history, and the medical decision-making described in the above note were completed with the assistance of the mid-level provider. I reviewed and agree with the findings presented. I attest that I had a [id number] encounter with the patient on the same day, and personally performed and documented my assessment and findings in the medical record. Staph aureus sepsis-- likely from port Septic shock with hypotension and on Levophed Respratory distress and Intubated on Abx, port removal Acute thrombocytopenia due to sepsis/DIC check LDH, haptoglobin and fibrinogen in am Anemia due to acute illness. no blood products today d/w rn Problem Qualifiers (1) Sepsis: Qualified Code: A41.9 - Sepsis, due to unspecified organism Perla Duran Dec 02, 2016 10:43 Brant Bell MD Dec 03, 2016 00:00
--- NOTE | 2016-12-02 11:00 | HHI.IDPN ---
Subjective Subjective Remarks Patient is a 61-year-old male, currently lethargic, and unable to give any history. History has been obtained from the chart. 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 It was reportedly malignant as well. He presented to the hospital complaining of generalized weakness, abdominal pain and progressive swallowing difficulty over the last 3 weeks. Evaluation in the emergency room revealed abnormal EKG, and he underwent cardiac catheterization. He had non-ST DE, and had revascularization with stent placement of his left circumflex artery. Patient is spiked to 103, and there were 2 blood cultures done yesterday that are now reported as growing staph aureus. Patient currently has a Saxena catheter. There is a lot of sediment in his urine, and his urine culture is also showing staph aureus. CT of the abdomen and pelvis did not show any abnormality except the soft tissue mass in the esophagus. He had atherosclerosis of his vasculature. There was also evidence of possible liver cirrhosis. Patient is being evaluated for chemotherapy and radiation, but he has not been started. He had an [id number] placement on November 12 on his right upper chest. Notes reviewed D/W RN Had worsening of respiratory status - got intubated this morning He is sedated on the vent Still looks dyspneic On levophed Febrile most of the night Due to esophageal mass, cant do PAM UC with MSSA BC with Staph aureus, no final yet Repeat BC negative so far CXR with basilar atelectasis Antibiotics Ancef Vancomycin Lines Port Past Medical History Hypertension Hyperlipidemia CAD Diabetes 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 and he had good margins Recurrent squamous cell carcinoma on the left face, with involvement of the parotid gland, status post surgery at [facility] Recently found to have esophageal mass Past Surgical History Appendectomy Liver Biopsy Resection of a squamous cell carcinoma on the left cheek in 2011 Extensive surgery on the left face and neck for recurrent squamous cell carcinoma Port Placement November 12, 2016 Allergies: Coded Allergies: Penicillin (Verified Allergy, Mild, Hives, 11/12/16) Objective . Vital Signs Date Time Temp Pulse Resp B/P Pulse Ox O2 Delivery O2 Flow Rate FiO2 12/02/16 07:35 100 100 12/02/16 06:00 113 12/02/16 04:00 100.0 97 24 82/55 94 12/02/16 04:00 97 12/02/16 02:13 20 12/02/16 02:00 105 12/02/16 00:00 108 12/02/16 00:00 101.3 108 27 88/58 94 12/01/16 22:00 107 12/01/16 20:03 96 Nasal Cannula 4.00 12/01/16 20:00 114 12/01/16 20:00 101.7 114 25 94/61 96 12/01/16 18:00 109 12/01/16 16:00 105 12/01/16 16:00 101.8 105 28 80/60 98 12/01/16 14:00 113 12/01/16 13:12 97 Nasal Cannula 4.00 12/01/16 12:00 103.4 109 32 89/61 94 12/01/16 12/01/16 12/02/16 15:00 23:00 07:00 Intake Total 3969 ml 537 ml 720 ml Output Total 830 ml 400 ml 450 ml Balance 3139 ml 137 ml 270 ml IV Total 3729 ml 537 ml 720 ml Other 240 ml Output Urine Total 830 ml 400 ml 450 ml . Laboratory Tests Test 11/30/16 11/30/16 12/01/16 12/02/16 11:52 15:45 05:20 04:15 White Blood Count 10.5 TH/MM3 9.3 TH/MM3 11.9 TH/MM3 9.6 TH/MM3 Red Blood Count 3.62 MIL/MM3 3.64 MIL/MM3 3.30 MIL/MM3 2.85 MIL/MM3 Hemoglobin 10.1 GM/DL 9.8 GM/DL 9.1 GM/DL 8.0 GM/DL Hematocrit 30.1 % 30.4 % 27.3 % 23.6 % Mean Corpuscular Volume 83.4 FL 83.4 FL 82.9 FL 82.7 FL Mean Corpuscular Hemoglobin 27.9 PG 26.9 PG 27.6 PG 28.1 PG Mean Corpuscular Hemoglobin 33.5 % 32.3 % 33.3 % 34.0 % Concent Red Cell Distribution Width 15.3 % 15.3 % 15.2 % 15.7 % Platelet Count 110 TH/MM3 109 TH/MM3 98 TH/MM3 85 TH/MM3 Mean Platelet Volume 9.3 FL 8.8 FL 9.5 FL 10.0 FL Neutrophils (%) (Auto) 90.8 % 89.6 % 83.7 % Lymphocytes (%) (Auto) 4.7 % 4.4 % 8.8 % Monocytes (%) (Auto) 3.4 % 5.8 % 7.2 % Eosinophils (%) (Auto) 0.0 % 0.0 % 0.0 % Basophils (%) (Auto) 1.1 % 0.2 % 0.3 % Neutrophils # (Auto) 8.4 TH/MM3 10.6 TH/MM3 8.1 TH/MM3 Lymphocytes # (Auto) 0.4 TH/MM3 0.5 TH/MM3 0.8 TH/MM3 Monocytes # (Auto) 0.3 TH/MM3 0.7 TH/MM3 0.7 TH/MM3 Eosinophils # (Auto) 0.0 TH/MM3 0.0 TH/MM3 0.0 TH/MM3 Basophils # (Auto) 0.1 TH/MM3 0.0 TH/MM3 0.0 TH/MM3 CBC Comment AUTO DIFF AUTO DIFF AUTO DIFF Differential Total Cells 100 100 Counted Neutrophils % (Manual) 72 % 77 % Band Neutrophils % 23 % 17 % Lymphocytes % 2 % 2 % Monocytes % 3 % 4 % Neutrophils # (Manual) 8.8 TH/MM3 11.2 TH/MM3 Differential Comment FINAL DIFF FINAL DIFF AUTO DIFF MANUAL MANUAL CONFIRMED Platelet Estimate LOW LOW LOW Platelet Morphology Comment NORMAL NORMAL ENLARGED Red Cell Morphology Comment NORMAL Ovalocytes 1+ Laboratory Tests Test 11/30/16 11/30/16 11/30/16 12/01/16 11:52 15:45 20:10 05:20 Troponin I 17.10 NG/ML Sodium Level 131 MEQ/L 132 MEQ/L Potassium Level 2.8 MEQ/L 2.9 MEQ/L Chloride Level 96 MEQ/L 97 MEQ/L Carbon Dioxide Level 24.6 MEQ/L 21.2 MEQ/L Anion Gap 10 MEQ/L 14 MEQ/L Blood Urea Nitrogen 20 MG/DL 22 MG/DL Creatinine 1.14 MG/DL 1.18 MG/DL Estimat Glomerular Filtration 66 ML/MIN 63 ML/MIN Rate Random Glucose 70 MG/DL 122 MG/DL Lactic Acid Level 2.3 mmol/L 3.6 mmol/L Calcium Level 7.8 MG/DL 7.6 MG/DL Iron Level 11 MCG/DL Total Iron Binding Capacity 269 MCG/DL Percent Iron Saturation 4.1 % Transferrin 192 MG/DL Vitamin B12 Level 345 PG/ML Magnesium Level 1.1 MG/DL Total Bilirubin 0.9 MG/DL Aspartate Amino Transf 147 U/L (AST/SGOT) Alanine Aminotransferase 75 U/L (ALT/SGPT) Alkaline Phosphatase 73 U/L Total Protein 6.0 GM/DL Albumin 2.4 GM/DL Thyroid Stimulating Hormone 0.555 uIU/ML 3rd Gen Test 12/01/16 12/02/16 12/02/16 17:05 04:15 06:35 Potassium Level 3.5 MEQ/L 3.5 MEQ/L Ferritin 124 NG/ML Ammonia LESS THAN 10 MCMOL/L Tumor Marker Alpha Fetoprotein 1.7 NG/ML Sodium Level 138 MEQ/L Chloride Level 106 MEQ/L Carbon Dioxide Level 20.8 MEQ/L Anion Gap 11 MEQ/L Blood Urea Nitrogen 41 MG/DL Creatinine 1.34 MG/DL Estimat Glomerular Filtration 55 ML/MIN Rate Random Glucose 138 MG/DL Calcium Level 6.7 MG/DL Protein Corrected Calcium 7.3 MG/DL Total Bilirubin 0.8 MG/DL Aspartate Amino Transf 240 U/L (AST/SGOT) Alanine Aminotransferase 72 U/L (ALT/SGPT) Alkaline Phosphatase 64 U/L Total Protein 5.8 GM/DL Albumin 2.1 GM/DL Lactic Acid Level 1.7 mmol/L Microbiology Date/Time Procedure Status Source Growth 11/29/16 23:58 Aerobic Blood Culture - Preliminary Resulted Blood Peripheral Staphylococcus Aureus 11/29/16 23:58 Anaerobic Blood Culture - Preliminary Resulted Gram Positive Cocci 11/30/16 00:05 Aerobic Blood Culture - Final Complete Blood Peripheral Staphylococcus Aureus 11/30/16 00:05 Anaerobic Blood Culture - Final Complete Staphylococcus Aureus 11/30/16 01:15 Urine Culture - Final Complete Urine Catheterized Urine Staphylococcus Aureus 12/01/16 10:45 Aerobic Blood Culture - Preliminary Resulted Blood Peripheral Gram Positive Cocci 12/01/16 10:45 Anaerobic Blood Culture - Preliminary Resulted Gram Positive Cocci 12/01/16 14:04 Aerobic Blood Culture - Preliminary Resulted Blood Line Gram Positive Cocci 12/01/16 14:04 Anaerobic Blood Culture Resulted Blood Line Pending 12/01/16 17:00 Urine Culture Received Urine Catheterized Urine Pending 12/01/16 20:25 Aerobic Blood Culture Received Blood Peripheral Pending 12/01/16 20:25 Anaerobic Blood Culture Received Blood Peripheral Pending 12/02/16 04:31 Aerobic Blood Culture Received Blood Peripheral Pending 12/02/16 04:31 Anaerobic Blood Culture Received Blood Peripheral Pending 12/02/16 08:10 Gram Stain Received Sputum Endotracheal Pending 12/02/16 08:10 Sputum Culture Received Sputum Endotracheal Pending Imaging Chest X-Ray 12/02/16 0000 Signed Impressions: Service Date/Time: Friday, December 02, 2016 08:24 - CONCLUSION: Mild perihilar vascular congestion. Endotracheal tube is in good position Barrett Rodriguez MD Head CT 12/01/16 0000 Signed Impressions: Service Date/Time: Thursday, December 01, 2016 07:59 - CONCLUSION: 1. Questionable area of low attenuation left temporal lobe could be artifact versus less likely infarct. MRI may be warranted based on clinical history. 2. No midline shift or mass effect. 3. No intraparenchymal hemorrhage. Jagjit Tapia MD Brain MRI 12/01/16 0000 Signed Impressions: Service Date/Time: Thursday, December 01, 2016 12:07 - CONCLUSION: Normal examination. Barrett Rodriguez MD Abdomen X-Ray 12/01/16 0000 Signed Impressions: Service Date/Time: Thursday, December 01, 2016 16:48 - CONCLUSION: No evidence of obstruction. Feeding tube tip in the distal stomach. Barrett Rodriguez MD Abdomen/Pelvis CT 11/29/16 2356 Signed Impressions: Service Date/Time: Wednesday, November 30, 2016 01:35 - CONCLUSION: 1. Markedly abnormal appearance of the distal esophagus consistent with the history of esophageal carcinoma. 2. Atherosclerotic calcifications of the aorta and iliac vessels. 3. Cirrhotic appearance to the liver with a mildly nodular contour present. Erik Simon MD CT Angiography 11/29/16 0936 Signed Impressions: Service Date/Time: Wednesday, November 30, 2016 01:35 - CONCLUSION: 1. No evidence for pulmonary embolism or pneumonia. 2. Abnormal appearance of the esophagus with and soft tissue consistent with the history of carcinoma. Erik Simon MD Physical Exam GENERAL: Patient is sedated on the vent, dyspneic SKIN: Warm and dry. No generalized rash, no ecchymoses. Has embolic lesions in his L big toe. HEAD: Atraumatic. Normocephalic. No temporal wasting, or tenderness. EYES: [place] conjunctiva. has petechia in both lower eyelids. Pupils equal, round and reactive to light. Extraocular movements full and intact. No scleral icterus. No injection or drainage. EARS, NOSE AND THROAT: Nose without bleeding or purulent nasal discharge. No sinus tenderness. Orally intubated NECK: Trachea midline. Supple and not tender, no meningeal signs CARDIOVASCULAR: Regular rate and rhythm. No murmurs, rubs or gallops heard RESPIRATORY: Coarse BS bilaterally. Port in R upper chest looks fairly unremarkable, tunnelled site has small area with purplish color about pea sized ABDOMEN: Soft, mildly distended. NO reaction to palpation, not guarding. Bowel sounds present and normoactive. No guarding. No rebound. No organomegaly. EXTREMITIES: No clubbing, cyanosis, or edema. No joint effusion, has good ROM. No calf tenderness. Well perfused and warm. NEUROLOGICAL: Sedated. No babinski, no clonus. PSYCHIATRIC: Unable to assess LINE: Port site looks ok, has a purplish spot in one area of tunnelled cath : Saxena in place, with sediment Assessment & Plan Remarks IMPRESSION Sepsis with Staph aureus has findings of L sided endocarditis, ?port infection (usually though would have R sided endocarditis) - now with shock Respiratory failure (+) UC with Staph aureus, due to current bacteremia Recurrent squamous cell CA Esophageal CA Lethargy and SOB due to sepsis - has acidosis Renal insufficiency, due to sepsis and shock RECOMMENDATION Follow repeat BC to document clearing Continue vanco, will stop if not MRSA Continue IV Ancef Prob will need removal of his port Follow C/S Follow temps Monitor respiratory status Monitor progress D/W Carola Dick MD Dec 02, 2016 11:00
[2016-12-02] MEDS ORDERED: SODIUM BICARBONATE 8.4% INJ 50 ML ONE (11:06)
[2016-12-02] MEDS ORDERED: ROCURONIUM INJ 50 MG/5 ML VIAL IV ONE (11:15)
[2016-12-02] MEDS: MULTIVITAMIN INJ 10 ML, THIAMINE INJ 100 MG, FOLIC ACID INJ 1 MG in SODIUM CHLOR 0.45% ... IV SCH (11:38)
[2016-12-02] MEDS: PROPOFOL 1000 MG/100 ML INJ 100 ML IV SCH ×3 (11:45→19:59)
[2016-12-02] MEDS: VASOPRESSIN INJ 40 UNITS in DEXTROSE 5% IN WATER 100ML INJ 98 ML IV SCH ×2 (12:53)
[2016-12-02 15:05] LABS: BLOOD GAS BASE EXCESS -8.1 mmol/L (-2-2); BLOOD GAS CARBOXYHEMOGLOBIN 1.4 % (0-4); BLOOD GAS HCO3 16 mmol/L (22-26); BLOOD GAS O2 HGB SATURATION 95 % (90-100); BLOOD GAS OXYGEN CONTENT 11.3 Vol % (12.0-20.0); BLOOD GAS PCO2 31 mmHg (38-42); BLOOD GAS PO2 98 mmHg (61-120); BLOOD GAS TOTAL HGB 8.3 G/DL (12.0-16.0); TEMP CORR TO 98.6
[2016-12-02 15:06] LABS: CRITICAL VALUE YES; DRAW SITE ART LINE; FIO2 50 %; OXYGEN DEVICE VENTILATOR; STAT YES
[2016-12-02] MEDS ORDERED: TERBUTALINE INJ 1 MG/ML AMP SQ PRN (15:15)
[2016-12-02] MEDS: methylPREDNISolone SOD SUCC 125 MG/2 ML VIAL IV PUSH SCH ×2 (15:52→21:22)
[2016-12-02] MEDS: NOREPINEPHRINE-DEXTROSE DRIP 250 ML IV SCH ×3 (15:53→19:59)
[2016-12-02] MEDS: SODIUM BICARBONATE 8.4% INJ 150 MEQ in WATER STERILE FOR INJ 850 ML IV SCH ×2 (15:54→23:46)
--- NOTE | 2016-12-02 16:03 | PD.PROCEDR ---
Procedure Note Procedure REASON FOR PROCEDURE: Septic shock PROCEDURE PERFORMED Right axillary arterial line placement CONSENT Emergency procedure ANESTHESIA Local injection of 1% Lidocaine DESCRIPTION OF THE PROCEDURE The patient was placed in supine, position. The area was exposed and cleansed with ChloraPrep, times two. Large sterile drape was used to cover the patient, with the site (right axilla) exposed, under sterile conditions including cap, face mask, sterile gown, and sterile gloves. On single attempt, the introducer needle was inserted with negative pressure in syringe and arterial flash was obtained. The guide wire was then advanced without any restriction and the needle was removed. Using Seldinger technique the 20G arterial catheter was advanced over the guide wire. The guide wire was removed. Good arterial wave form noted. Antibiotic disc was placed around arterial line at puncture site, line was secured to the skin with one interrupted 2.0 silk sutures. The area was bandaged with sterile see-through central line bandage. RADIOLOGICAL DATA Ultrasound guidance was used to locate right axillary today. COMPLICATIONS: No apparent complications ESTIMATED BLOOD LOSS: Less than 1 cc. Bean Delarosa MD Dec 02, 2016 16:03
--- NOTE | 2016-12-02 16:05 | PD.PROCEDR ---
Procedure Note Procedure After the risks and benefits were discussed the following procedure was performed: INTUBATION: The patient was put in optimal position for the procedure. Rapid sequence intubation was initiated by me using 20 milligrams of etomidate IV and 5 milligrams of Versed IV, and 50 mg Rocuronium IV. Unable to visualize cords with direct laryngoscopy. With Glidescope #4 blade, Grade 2 view, easy intubation in single attempt The patient was intubated with a 8.0 cuffed endotracheal tube. Tube placement was confirmed by visualization of the tube and balloon passing through the cords, capnometry and subsequent chest x-ray. Breath sounds were equal and well aerated bilaterally postintubation. No breath sounds over stomach. Patient tolerated procedure well. Bean Delarosa MD Dec 02, 2016 16:05
--- NOTE | 2016-12-02 16:07 | PD.PROCEDR ---
Central Line Procedure REASON FOR PROCEDURE Central venous access PROCEDURE PERFORMED Central line placement: L subclavian central line CONSENT Emergency procedure ANESTHESIA Local injection of 1% Lidocaine DESCRIPTION OF THE PROCEDURE The patient was placed in supine, mild Trendelenburg position. The area was exposed and cleansed with ChloraPrep, times two. Large sterile drape was used to cover the patient, with the site exposed, under sterile conditions including cap, face mask, sterile gown, and sterile gloves. On single attempt, the introducer needle was inserted with negative pressure in syringe and venous flash was obtained. The guide wire was then advanced without any restriction and the needle was removed. The dilator was used without any complications. Using Seldinger technique the 20 CM, 7F triple lumen catheter, ABX coated was advanced over the guide wire to a depth of 18 centimeters. The guide wire was removed. All ports were aspirated with dark venous blood return and flushed easily with sterile saline. All ports were capped. Antibiotic disc was placed around central line at puncture site. The central line was secured to the skin with two interrupted 2.0 silk sutures. The area was bandaged with sterile see- through central line bandage. COMPLICATIONS: No apparent complications ESTIMATED BLOOD LOSS: Less than 1 cc. Bean Delarosa MD Dec 02, 2016 16:07
--- NOTE | 2016-12-02 16:36 | RADRPT ---
EXAM DATE/TIME: 12/02/2016 15:55 [facility] COMPARISON: CHEST SINGLE AP, December 02, 2016, 8:24. INDICATIONS : Central line placement. MEDICAL HISTORY : Hypertension. Myocardial infarction. Chronic obstructive pulmonary disease. SURGICAL HISTORY : Appendectomy. ENCOUNTER: Subsequent ACUITY: 3 days PAIN SCORE: 0/10 LOCATION: Bilateral chest FINDINGS: A single view of the chest demonstrates the lungs to be symmetrically aerated without evidence of mas s, infiltrate or effusion. The endotracheal tube, bilateral subclavian central lines and feeding tube are in good position The cardiomediastinal contours are unremarkable. Osseous structures are intac t. CONCLUSION: Normal examination with endotracheal tube and central lines in good position. Barrett Rodriguez MD on December 02, 2016 at 16:34 Board Certified Radiologist. This report was verified electronically.
--- NOTE | 2016-12-02 18:17 | EKG ---
Date Performed: 12/02/2016 Time Performed: 07:02:14 PTAGE: 61 years EKG: ATRIAL FIBRILLATION WITH RAPID VENTRICULAR RESPONSE WITH ABERRANT CONDUCTION OR VENTRICULAR PREMATURE COMPLEXES INFERIOR MYOCARDIAL INFARCTION , PROBABLY OLD NON-SPECIFIC ST/T WAVE CHANGES ABN ORMAL ECG PREVIOUS TRACING : 11/30/2016 09.59 Compared to the previous tracing, atrial fibrillation has r eplaced normal sinus, non-specific ST/T wave changes are new DOCTOR: Kendrick Gutierrez Interpretating Date/Time 12/02/2016 18:17:08
[2016-12-02] MEDS ORDERED: LIDOCAINE HCL 1% 50 ML VIAL ONE (19:06)
[2016-12-02] MEDS: CHLORHEXIDINE 0.12% (ORAL KIT) 15 ML CUP MT SCH (20:00)
[2016-12-02] MEDS: ATORVASTATIN 10 MG TAB PO SCH (21:22)
--- NOTE | 2016-12-02 21:59 | MB ---
cc: MARIA INES EATON MD DATE OF CONSULTATION 12/02/2016 REASON FOR CONSULTATION Sepsis with Dnishu-X-Jjhm infection. 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 The patient had an appointment and seen by Dr. 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 The patient also has a hypermetabolic esophageal mass and likely has distal esophageal cancer. The patient was admitted with a CTA negative for pulmonary embolus. The patient had lactic acidosis, hypokalemia and elevated troponin. The patient was noted to have liver cirrhosis and splenomegaly as well and is felt to have Zeuyfp-K-Knyy infection at this time. PAST MEDICAL HISTORY 1. Coronary artery disease, 2. Type 2 diabetes mellitus, 3. Hyperlipidemia, 4. Hypertension, 5. Esophageal mass 6. 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 MEDICATIONS Current include 1. Vancomycin IV. 2. Levophed drip. 3. Terbutaline sulfate. 4. Methylprednisolone 60 mg IV q.8 h. 5. Vasopressin 0.03 units per minute. 6. Lovenox 40 mg q.24 h subcu. 7. Lopressor as needed. 8. Propofol and Fentanyl drip 9. Ancef IV 10. Clopidogrel bisulfate 75 mg p.o. daily, 11. Atorvastatin 10 mg p.o. q.h.s., 12. Hydromorphone as needed 13. Lactulose. PHYSICAL EXAMINATION GENERAL: A male who is intubated and sedated. VITAL SIGNS: BP 88/58 on Levophed and vasopressin, pulse 120, respirations 17 on the vent, FIO2 50%, 98% sat. CHEST: Clear to auscultation. There is some swelling with liquid over the right Xpmuip-M-Ngfq site on the chest wall. The patient has multiple cultures from the last 48-72 hours all demonstrating methicillin-sensitive staph and blood cultures, urine. Dr. Delarosa has asked me to see the patient for port removal as this may be part of the source. LABORATORY DATA WBCs of 9.6, 77% neutrophils and 17% bands. There is a small amount of liquid draining out of the Xjigpt-W-Afzh pocket. ABDOMEN: Soft. EXTREMITIES: Pulses are diminished and extremities are cool. ASSESSMENT Sepsis syndrome secondary to bacteremia with methicillin sensitive staph. PLAN I will remove the report immediately and culture the tip per Dr. Delarosa's request. I will pack the wound open and allow this to heal secondarily. The patient's family member has given permission to proceed. MD RICHARD Matos/ /9:26 PM /9:48 PM
[2016-12-02] MEDS ORDERED: DEXTROSE 50% IN WATER 50 ML VIAL(D50) IV PRN (22:30)
[2016-12-02] MEDS ORDERED: GLUCAGON 1 MG/ML VIAL OTHER PRN (22:30)
[2016-12-02] MEDS: INSULIN ASPART SUPPLEMENTAL SCALE SQ SCH (23:47)
[2016-12-03] VITALS (17 sets, daily range): BP systolic 94–113; BP diastolic 59–67; PULSE 91–122; RESP 13–20; TEMP 97.9–99; O2SAT 89–99
[2016-12-03] MEDS ORDERED: VANCOMYCIN INJ 2,000 MG in SODIUM CHLORID 0.9% 500 ML INJ 500 ML IV SCH ×2
[2016-12-03] MEDS: SODIUM CHLOR 0.9% 1000 ML INJ 1,000 ML IV SCH ×2 (00:30→08:44)
[2016-12-03] MEDS: ceFAZolin 2 GM PREMIX 50 ML IV SCH ×2 (01:49→08:27)
[2016-12-03] MEDS: CHLORHEXIDINE GLUCONATE 2 % 1 PACK (2 CLOTHS)(taper/protocol) TOPICAL SCH (01:50)
[2016-12-03] MEDS: RESP: ALBUTEROL 2.5 MG/IPRATROPIUM 0.5 MG NEB (SCH) NEB ×4 (03:32→21:08)
[2016-12-03] MEDS: INSULIN ASPART SUPPLEMENTAL SCALE SQ SCH ×5 (04:02→20:00)
[2016-12-03] MEDS: methylPREDNISolone SOD SUCC 125 MG/2 ML VIAL IV PUSH SCH ×3 (04:04→22:23)
[2016-12-03] MEDS: NOREPINEPHRINE-DEXTROSE DRIP 250 ML IV SCH (04:05)
[2016-12-03] MEDS: SODIUM BICARBONATE 8.4% INJ 150 MEQ in WATER STERILE FOR INJ 850 ML IV SCH (04:16)
[2016-12-03] MEDS: VASOPRESSIN INJ 40 UNITS in DEXTROSE 5% IN WATER 100ML INJ 98 ML IV SCH ×2 (04:17)
[2016-12-03 04:25] LABS: BASOPHIL % 0.1 % (0.0-2.0); EOSINOPHIL % 0.1 % (0.0-4.0); HEMATOCRIT 25.9 % (39.0-51.0); HEMO FLAGS DIFF FINAL; LYMPH % 5.5 % (9.0-44.0); LYMPHOCYTE # 0.5 TH/MM3 (1.0-4.8); MEAN CELL VOLUME 84.6 FL (80.0-100.0); MEAN CORPUSCULAR HEMOGLOBIN 27.5 PG (27.0-34.0); MEAN CORPUSCULAR HGB CONC 32.5 % (32.0-36.0); MONO % 4.7 % (0.0-8.0); NEUT % 89.6 % (16.0-70.0); PLATELET COUNT 125 TH/MM3 (150-450); RED BLOOD COUNT 3.07 MIL/MM3 (4.50-5.90); RED CELL DISTRIBUTION WIDTH 16.2 % (11.6-17.2); WHITE BLOOD COUNT 8.9 TH/MM3 (4.0-11.0)
[2016-12-03 04:58] LABS: BICARBONATE 25.4 MEQ/L (21.0-32.0); MAGNESIUM 1.8 MG/DL (1.5-2.5); POTASSIUM 3.4 MEQ/L (3.5-5.1); TOTAL BILIRUBIN ADULT 1.2 MG/DL (0.2-1.0)
[2016-12-03 05:09] LABS: CALCIUM-PROTEIN CORRECTED 7.3 MG/DL (8.5-10.1)
[2016-12-03 05:27] LABS: INTERNATIONAL NORMALIZED RATIO 1.1 RATIO
[2016-12-03 05:36] LABS: PROTHROMBIN TIME - PATIENT 12.7 SEC (9.8-11.6)
--- NOTE | 2016-12-03 06:39 | RADRPT ---
EXAM DATE/TIME: 12/03/2016 04:43 [facility] COMPARISON: CHEST SINGLE AP, December 02, 2016, 15:55. INDICATIONS : Shortness of breath. MEDICAL HISTORY : Hypertension. Myocardial infarction. Chronic obstructive pulmonary disease. SURGICAL HISTORY : Appendectomy ENCOUNTER: Subsequent ACUITY: 4 - 6 days PAIN SCORE: Non-responsive. LOCATION: Bilateral chest FINDINGS: A single view of the chest demonstrates some interstitial changes bilaterally. There appears to be so me increasing consolidation left lower lung compared to the prior exam. There is no evidence of pneum othorax. Left-sided central line and feeding tube remain in place. The previously noted right Infuse- a-Port has been removed. No evidence of pneumothorax.. CONCLUSION: Increasing consolidation in the left lower lung. Bilateral interstitial changes. Niko Wilcox MD on December 03, 2016 at 6:36 Board Certified Radiologist. This report was verified electronically.
--- NOTE | 2016-12-03 07:08 | MP ---
cc: MARIA INES EATON M.D. DATE OF PROCEDURE 12/02/2016 PROCEDURE Ibfpse-R-Ujjn removal. PREOPERATIVE DIAGNOSIS Sepsis with an infected Lxuhgw-S-Uluu. POSTOPERATIVE DIAGNOSIS Sepsis with an infected Lohaol-U-Apsx. ANESTHESIA IV sedation and local anesthetic. PROCEDURE IN DETAIL The right chest was prepped and draped. The skin was infiltrated with local anesthetic and an incision made in the patient's previous incision over the port. Lambert-colored fluid was easily expressed. The port was completely removed and the tip cultured sterilely and submitted for specimen analysis. The port tunnel was made hemostatic by placing a single 3-0 Vicryl suture in a qegaqv-pt-ahzit fashion. The pocket was then packed open with a 4x4 gauze and 4x4s applied over this. There was no bleeding noted at the end of the procedure. The patient tolerated the procedure well. MD RICHARD Matos/RAFAEL /9:32 PM /7:02 AM
[2016-12-03] MEDS ORDERED: MIDAZOLAM 100 MG/100 ML INJ 100 ML IV SCH (08:00)
--- NOTE | 2016-12-03 08:06 | HHI.CCPN ---
Subjective Remarks/Hospital Course This is a 61-year-old male with past medical history of poorly differentiated squamous cell carcinoma involving the left parotid gland, and neck s/p parotidectomy and radical neck dissection (at [facility] ), CAD, type 2 diabetes, dyslipidemia, hypertension who was admitted to the hospitalist service yesterday with abdominal pain worsening over the past 3 weeks. He was hypotensive, febrile up to 101 and received IV fluid resuscitation with improvement in his blood pressure. EKG showed ST-T wave changes, and troponin was elevated and peaked at 17.1. The patient has been evaluated by cardiology for NSTEMI. He underwent PCI with bare metal stent to LCx by Dr. Krause on 11/30/16. The patient had a CT of the abdomen and pelvis on admission which showed marked soft tissue thickening in the distal esophagus concerning for esophageal cancer. The patient was also noted to have liver cirrhosis and mild splenomegaly. Patient has a history of alcohol intake but according to the girlfriend has not had alcoholic drinks for several months. CTA no evidence of pulmonary embolism or pneumonia. Critical care was consulted 12/01 for altered mentation, persistent fever, MSSA bacteremia and worsening sepsis. Apparently patient was agitated overnight requiring restraints. He also sustained a fall when he tried to climb out of the bed. CT of the head was negative except for a possible artifact left temporal region. An MRI which was done today came back negative. On my evaluation the ICU patient was very lethargic and tachypneic breathing approximately 35-40. ABG showed respiratory alkalosis. His altered mentation is most likely secondary to severe sepsis, and possible alcohol withdrawal. Blood cultures 08/19 growing MSSA, lactic acid 3.6. SUBJ 12/02: Patient found to be tachypneic today, and in severe respiratory distress. His stat breathing treatment and IV Solu-Medrol did not improve respiratory status. Patient was emergently intubated and placed on mechanical ventilation for respiratory extremis. (Unable to visualize cords with direct laryngoscopy. With Glidescope #4 blade Grade 2 view, easy intubation). I'm told by GI that patient had workup for esophageal mass as outpatient which invasive adenocarcinoma of distal esophagus 12/03: Remains critically ill in septic shock on 2 pressors, but trending in the right direction. Levophed down from 20 mcg/min to 10 mcg/m today. Fever trending down after removal of the Makexn-h-Izbz. Possible was expressed from about 1 inch superior to the Rbsxrw-o-Ngno along the track of the catheter, Dr. Rich was emergently consulted for removal of the port which he did yesterday. Urine output remains adequate renal function though slightly worsened Objective Vital Signs Date Time Temp Pulse Resp B/P Pulse Ox O2 Delivery O2 Flow Rate FiO2 12/03/16 06:00 116 12/03/16 04:00 45 12/03/16 04:00 98.8 18 97/59 99 94/62 12/01/16 20:03 Nasal Cannula 4.00 Intake and Output 12/02/16 12/02/16 12/03/16 08:00 16:00 00:00 Intake Total 720 ml 4280 ml 1534 ml Output Total 450 ml 650 ml 300 ml Balance 270 ml 3630 ml 1234 ml Result Diagram: 12/03/16 0328 12/03/16 0327 Other Results Laboratory Tests Test 12/02/16 12/02/16 08:39 15:00 Blood Gas Puncture Site RT BRACHIAL ART LINE Blood Gas Patient Temperature 98.6 98.6 Blood Gas HCO3 18 mmol/L 16 mmol/L (22-26) (22-26) Blood Gas Base Excess -9.3 mmol/L -8.1 mmol/L (-2-2) (-2-2) Blood Gas Oxygen Saturation 89 % (90-100) 95 % (90-100) Arterial Blood pH 7.17 7.35 (7.380-7.420) (7.380-7.420) Arterial Blood Partial 51 mmHg (38-42) 31 mmHg (38-42) Pressure CO2 Arterial Blood Partial 84 mmHg 98 mmHg Pressure O2 (61-120) (61-120) Arterial Blood Oxygen Content 11.2 Vol % 11.3 Vol % (12.0-20.0) (12.0-20.0) Arterial Blood 1.1 % (0-4) 1.4 % (0-4) Carboxyhemoglobin Arterial Blood Methemoglobin 1.2 % (0-2) 1.0 % (0-2) Blood Gas Hemoglobin 8.9 G/DL 8.3 G/DL (12.0-16.0) (12.0-16.0) Oxygen Delivery Device VENTILATOR VENTILATOR Blood Gas Ventilator Setting AC/RR16/VT500/PEEP10 A/C 650/18/10PEEP Blood Gas Inspired Oxygen 70 % 50 % Imaging CT of the brain shows low attenuation left temporal lobe compatible rule out artifact versus infarct Objective Remarks Propofol Fentanyl Levophed Vasopressin Bicarb GENERAL: Critically ill 61-year-old male who intubated sedated SKIN: Warm and dry. About 3 mL pus expressed from site about 1 inch right Idnmtp-c-Nvhd HEAD: Normocephalic. EYES: No scleral icterus. No injection or drainage. ENT: Well healed surgical scars from L parotid resection, and neck dissection NECK: Supple, trachea midline. No JVD or lymphadenopathy. CARDIOVASCULAR: Sinus tachycardia without murmurs, gallops, or rubs. Hypotensive on two pressors RESPIRATORY: Breath sounds equal bilaterally. No accessory muscle use. GASTROINTESTINAL: Abdomen soft, no guarding nondistended. MUSCULOSKELETAL: Right groin catheterization site without hematoma BACK: Nontender without obvious deformity. No CVA tenderness. NEURO: Intubated heavily sedated for ventilator synchrony. Moves all extremities purposefully on lightening sedation Urinary Catheter: Yes Assessment to: Continue Vascular Central Line Catheter: Yes Assessment to: Continue A/P Assessment and Plan NEURO: Acute metabolic encephalopathy Possible alcohol withdrawal - On propofol and fentanyl postintubation. Discontinue propofol due to hypotension, place on Versed infusion - Encephalopathy most likely secondary to severe sepsis - Watch for alcohol withdrawal - Continue Thiamine, MVI RESP: Acute hypoxemic respiratory failure Acute COPD exacerbation Anterior airway Tobacco abuse - Emergently intubated and placed on mechanical ventilation 12/02/16 - Unable to visualize cords with direct laryngoscopy. With GlideScope #4 blade Grade 2 view, easy intubation - DuoNeb every 4 hours and when necessary - IV Solu-Medrol 125 mg x1 and 60 q8 hr for COPD exacerbation - Broad spectrum ABX CV: Septic shock Lactic acidemia NSTEMI - Remains in severe septic shock though Levophed requirement is coming down - Continue Levophed and vasopressin to keep map above 65 - Status post aggressive fluid resuscitation now fluid positive - Check CVP, start flow trac. check ABG, VBG - s/p PCI to LCx by Dr. Krause on 11/30/16 - Continue ASA/Plavix/stain/Brilinta - Beta blockers held due to hypotension - Normal saline 125 ml per hour, reduce to 50 ml per hour, DC bicarb gtt - Trend lactic acid - 2-D echo no veg, EF 50-55% GI: Invasive adenocarcinoma of the esophagus Liver cirrhosis - Dobhoff placed 12/02, start tube feeds once Levophed less than 5 mcg/m - GI following- has biopsy proven invasive adenoca of esophagus - IV Protonix : Acute kidney failure/ATN - Monitor renal function closely. Saxena catheter. - Fluid resuscitation as above - Discontinue bicarbonate infusion, is normal saline to 50 ML per hour ID: Septic shock MSSA bacteremia Probable Ryqqmp-z-Jblj infection - Continue Ancef and vancomycin, Zosyn of infection appears to be Xgguhn-g-Jpxp which was removed yesterday by Dr. Rich - Infectious disease consulted by primary. 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 Bell is following - Status post surgical resection for L parotid SCC. ENDO: Hypokalemia Diabetes Hypothyroidism - Electrolyte replacement per protocol - SSI - Continue thyroid supplementation PROPH: - Bilateral lower extremity SCDs. - Lovenox/Protonix LINES: - Left subclavian central line, right axillary arterial line placed 12/02/16 CC time 48 min excluding procedural time Critically male who is immunocompromised due to SCC of L parotid gland, esophageal cancer, now s/p NSTEMI, with severe septic shock on 2 pressors and acute respiratory failure. He remains very critically ill though slight interval improvement noted. Prognosis guarded due to multi organ failure Bean Delarosa MD Dec 03, 2016 08:05
[2016-12-03 08:19] LABS: BLOOD GAS CARBOXYHEMOGLOBIN 1.6 % (0-4); BLOOD GAS HCO3 25 mmol/L (22-26); BLOOD GAS METHEMOGLOBIN 0.7 % (0-2); BLOOD GAS O2 HGB SATURATION 96 % (90-100); BLOOD GAS OXYGEN CONTENT 11.8 Vol % (12.0-20.0); BLOOD GAS PCO2 35 mmHg (38-42); BLOOD GAS PO2 96 mmHg (61-120); BLOOD GAS TOTAL HGB 8.7 G/DL (12.0-16.0); TEMP CORR TO 98.6
[2016-12-03 08:20] LABS: CRITICAL VALUE NO; DRAW SITE ART LINE; FIO2 45 %; OXYGEN DEVICE VENTILATOR; STAT NO; VENT SETTINGS AC/RR18/550/PEEP5
[2016-12-03 08:23] LABS: BLOOD GAS VENOUS BASE EXCESS 2.1 mmol/L (-2-2); BLOOD GAS VENOUS HCO3 26 mmol/L (22-26); BLOOD GAS VENOUS O2 CONTENT 8.3 Vol % (9.0-17.0); BLOOD GAS VENOUS O2 HGB SAT 68 % (70-76); BLOOD GAS VENOUS PCO2 40 mmHg (44-48); BLOOD GAS VENOUS PO2 41 mmHg (35-40); BLOOD GAS VENOUS pH 7.43 (7.360-7.400); CRITICAL VALUE NO; DRAW SITE CENTRAL LINE; FIO2 45 %; OXYGEN DEVICE VENTILATOR; STAT NO; TEMP CORR TO 98.6; VENT SETTINGS AC/RR18/VT550/PEEP5
[2016-12-03] MEDS: PANTOPRAZOLE SODIUM 40 MG VIAL IV PUSH SCH ×2 (08:26→22:23)
[2016-12-03] MEDS: ENOXAPARIN SODIUM 40 MG/0.4 ML SYRINGE SQ SCH (08:26)
[2016-12-03] MEDS: CHLORHEXIDINE 0.12% (ORAL KIT) 15 ML CUP MT SCH ×2 (08:27→22:24)
[2016-12-03] MEDS: CLOPIDOGREL 75 MG TAB PO SCH (08:27)
[2016-12-03] MEDS: MULTIVITAMIN INJ 10 ML, THIAMINE INJ 100 MG, FOLIC ACID INJ 1 MG in SODIUM CHLOR 0.45% ... IV SCH (08:31)
[2016-12-03] MEDS: SODIUM CHLORIDE 0.9% FLUSH 10 ML FLUSH IV FLUSH SCH ×2 (08:36→22:23)
[2016-12-03] MEDS: DOCUSATE SODIUM 50 MG/SENNA 8.6 MG TAB PO SCH ×2 (08:37→22:23)
[2016-12-03] MEDS: ASPIRIN 81 MG CHEW TAB PO SCH (08:37)
--- NOTE | 2016-12-03 08:41 | RADRPT ---
EXAM DATE/TIME: 12/03/2016 07:48 [facility] COMPARISON: CHEST SINGLE AP, December 03, 2016, 4:43. INDICATIONS : Respiratory disease. MEDICAL HISTORY : Hypertension. Myocardial infarction. Chronic obstructive pulmonary disease. Coronary artery disease. Hiatal hernia. GERD. Liver disease. Hep C. Cirrhosis. SURGICAL HISTORY : Appendectomy. ENCOUNTER: Subsequent ACUITY: 3 days PAIN SCORE: Non-responsive. LOCATION: Bilateral chest FINDINGS: A single view of the chest demonstrates diminished lung volumes. Minimal left retrocardiac density. S light interstitial prominence. Endotracheal tube unchanged. Left subclavian central line and nasogast kailyn tube unchanged. Osseous structures are intact. CONCLUSION: 1. Persistent left retrocardiac density and slight interstitial prominence. Jagjit Tapia MD on December 03, 2016 at 8:38 Board Certified Radiologist. This report was verified electronically.
--- NOTE | 2016-12-03 09:14 | HHI.GIFU ---
Subjective Remarks Resting in bed. Pt lethargic, but awake on ventilator. S/P infusaport removal yesterday by GS. Denies abdominal pain. Nods "no" when asked if he drinks alcohol. Nods "yes" when asked if he was ever a heavy drinker. No bm. ( Nga Ramos) Objective Vitals I&O Vital Signs Date Time Temp Pulse Resp B/P Pulse Ox O2 Delivery O2 Flow Rate FiO2 12/03/16 07:53 93 45 12/03/16 06:00 116 12/03/16 04:00 118 12/03/16 04:00 45 12/03/16 04:00 98.8 118 18 97/59 99 94/62 12/03/16 03:35 97 45 12/03/16 02:00 120 12/03/16 00:00 122 12/03/16 00:00 45 12/03/16 00:00 99.0 122 20 102/62 98 96/62 12/02/16 23:31 98 45 12/02/16 22:00 120 12/02/16 21:09 98 45 12/02/16 20:00 50 12/02/16 20:00 120 12/02/16 20:00 98.1 120 12 90/62 98 86/55 12/02/16 18:00 121 12/02/16 16:00 99.4 116 17 88/58 98 12/02/16 16:00 50 12/02/16 16:00 116 12/02/16 14:00 120 12/02/16 12:00 99.9 117 16 108/64 94 12/02/16 12:00 117 12/02/16 11:03 98 50 12/02/16 10:00 110 I/O 12/02/16 12/02/16 12/02/16 12/03/16 12/03/16 12/03/16 07:00 15:00 23:00 07:00 15:00 23:00 Intake Total 720 ml 4280 ml 1534 ml 2162 ml Output Total 450 ml 650 ml 300 ml 450 ml Balance 270 ml 3630 ml 1234 ml 1712 ml IV Total 720 ml 4160 ml 1534 ml 2162 ml Other 120 ml Output Urine Total 450 ml 650 ml 300 ml 450 ml Laboratory Laboratory Tests Test 7/12/02/16 12/03/16 12/03/16 15:00 21:23 03:27 03:28 Blood Gas Puncture Site ART LINE Blood Gas Patient Temperature 98.6 Blood Gas HCO3 16 Blood Gas Base Excess -8.1 Blood Gas Oxygen Saturation 95 Arterial Blood pH 7.35 Arterial Blood Partial 31 Pressure CO2 Arterial Blood Partial 98 Pressure O2 Arterial Blood Oxygen Content 11.3 Arterial Blood 1.4 Carboxyhemoglobin Arterial Blood Methemoglobin 1.0 Blood Gas Hemoglobin 8.3 Oxygen Delivery Device VENTILATOR Blood Gas Ventilator Setting A/C 650/18/10PEEP Blood Gas Inspired Oxygen 50 Vancomycin Level Trough 15.3 Sodium Level 136 Potassium Level 3.4 Chloride Level 100 Carbon Dioxide Level 25.4 Anion Gap 11 Blood Urea Nitrogen 54 Creatinine 1.45 Estimat Glomerular Filtration 50 Rate Random Glucose 400 Calcium Level 6.7 Protein Corrected Calcium 7.3 Magnesium Level 1.8 Total Bilirubin 1.2 Aspartate Amino Transf 168 (AST/SGOT) Alanine Aminotransferase 60 (ALT/SGPT) Alkaline Phosphatase 81 Lactate Dehydrogenase 503 Total Protein 5.9 Albumin 2.0 White Blood Count 8.9 Red Blood Count 3.07 Hemoglobin 8.4 Hematocrit 25.9 Mean Corpuscular Volume 84.6 Mean Corpuscular Hemoglobin 27.5 Mean Corpuscular Hemoglobin 32.5 Concent Red Cell Distribution Width 16.2 Platelet Count 125 Mean Platelet Volume 9.6 Neutrophils (%) (Auto) 89.6 Lymphocytes (%) (Auto) 5.5 Monocytes (%) (Auto) 4.7 Eosinophils (%) (Auto) 0.1 Basophils (%) (Auto) 0.1 Neutrophils # (Auto) 8.0 Lymphocytes # (Auto) 0.5 Monocytes # (Auto) 0.4 Eosinophils # (Auto) 0.0 Basophils # (Auto) 0.0 CBC Comment DIFF FINAL Differential Comment Haptoglobin 498 Prothrombin Time 12.7 Prothromb Time International 1.1 Ratio Fibrinogen 623 Test 12/03/16 12/03/16 08:00 08:07 Blood Gas Puncture Site ART LINE CENTRAL LINE Blood Gas Patient Temperature 98.6 98.6 Blood Gas HCO3 25 Blood Gas Base Excess 1.0 Blood Gas Oxygen Saturation 96 Arterial Blood pH 7.46 Arterial Blood Partial 35 Pressure CO2 Arterial Blood Partial 96 Pressure O2 Arterial Blood Oxygen Content 11.8 Arterial Blood 1.6 Carboxyhemoglobin Arterial Blood Methemoglobin 0.7 Blood Gas Hemoglobin 8.7 Oxygen Delivery Device VENTILATOR VENTILATOR Blood Gas Ventilator Setting AC/RR18/550/PEEP5 AC/RR18/VT550/PEEP5 Blood Gas Inspired Oxygen 45 45 Venous Blood pH 7.43 Venous Blood Partial Pressure 40 CO2 Venous Blood Partial Pressure 41 O2 Venous Blood HCO3 26 Venous Blood Oxygen Saturation 68 Venous Blood Oxygen Content 8.3 Venous Blood Base Excess 2.1 Date/Time Procedure Status Source Growth 12/03/16 03:28 Aerobic Blood Culture Received Blood Peripheral Pending 12/03/16 03:28 Anaerobic Blood Culture Received Blood Peripheral Pending 12/02/16 20:00 Wound Culture Received Catheter Tip Other Pending 12/02/16 15:25 Gram Stain Received Wound Chest Pending 12/02/16 15:25 Wound Culture Received Wound Chest Pending 12/02/16 08:10 Gram Stain - Final Resulted Sputum Endotracheal 12/02/16 08:10 Sputum Culture Resulted Sputum Endotracheal Pending 12/02/16 04:31 Aerobic Blood Culture - Preliminary Resulted Blood Peripheral Gram Positive Cocci 12/02/16 04:31 Anaerobic Blood Culture Resulted Blood Peripheral Pending 12/01/16 17:00 Urine Culture - Preliminary Resulted Urine Catheterized Urine Staphylococcus Aureus 11/30/16 01:15 Urine Culture - Final Complete Urine Catheterized Urine Staphylococcus Aureus 11/30/16 00:05 Aerobic Blood Culture - Final Complete Blood Peripheral Staphylococcus Aureus 11/30/16 00:05 Anaerobic Blood Culture - Final Complete Staphylococcus Aureus Imaging Last Impressions Chest X-Ray 12/03/16 0600 Signed Impressions: Service Date/Time: Saturday, December 03, 2016 04:43 - CONCLUSION: Increasing consolidation in the left lower lung. Bilateral interstitial changes. Niko Wilcox MD Head CT 12/01/16 0000 Signed Impressions: Service Date/Time: Thursday, December 01, 2016 07:59 - CONCLUSION: 1. Questionable area of low attenuation left temporal lobe could be artifact versus less likely infarct. MRI may be warranted based on clinical history. 2. No midline shift or mass effect. 3. No intraparenchymal hemorrhage. Jgajit Tapia MD Brain MRI 12/01/16 0000 Signed Impressions: Service Date/Time: Thursday, December 01, 2016 12:07 - CONCLUSION: Normal examination. Barrett Rodriguez MD Abdomen X-Ray 12/01/16 0000 Signed Impressions: Service Date/Time: Thursday, December 01, 2016 16:48 - CONCLUSION: No evidence of obstruction. Feeding tube tip in the distal stomach. Barrett Rodriguez MD Abdomen/Pelvis CT 11/29/16 [id number] Signed Impressions: Service Date/Time: Wednesday, November 30, 2016 01:35 - CONCLUSION: 1. Markedly abnormal appearance of the distal esophagus consistent with the history of esophageal carcinoma. 2. Atherosclerotic calcifications of the aorta and iliac vessels. 3. Cirrhotic appearance to the liver with a mildly nodular contour present. Erik Simon MD CT Angiography 11/29/16 2348 Signed Impressions: Service Date/Time: Wednesday, November 30, 2016 01:35 - CONCLUSION: 1. No evidence for pulmonary embolism or pneumonia. 2. Abnormal appearance of the esophagus with and soft tissue consistent with the history of carcinoma. Erik Simon MD Physical Exam HEENT: Normocephalic; atraumatic; no jaundice. CHEST: Resp. even/unlabored, OETT vent. Diminished. Drsg right upper chest d/ i CARDIAC: RRR. ABDOMEN: Soft, nondistended, nontender; no hepatosplenomegaly; bowel sounds are present in all four quadrants. EXTREMITIES: No clubbing, cyanosis, or edema. SKIN: Normal; no rash; no jaundice. 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 (Nga Ramos) Assessment and Plan Plan ASSESSMENT: - Esophageal cancer. PET Scan (10/28/16)----> negative examination of the head and neck, findings characteristic of esophageal neoplasm. S/P EGD/Colonoscopy (11/20/16)----> There was a long stricture i the mid esophagus and distal esophagus, multiple biopsies were performed, the mucosa of the stomach appeared normal, duodenal mucosa showed no abnormalities in the entire duodenum, retroflexed views revealed a small hiatal hernia; nine sessile polyps ranging from 4-12 mm in size were found at the cecum, in the ascending colon, descending colon, sigmoid colon, and rectum; polypectomy was performed using snare cautery, moderate diverticulosis was noted in the left colon, retroflexed views revealed internal grade I hemorrhoids, a digital rectal exam was performed and revealed no abnormalities of the anus. Pathology revealed invasive adenocarcinoma- distal esophagus, descending colon polyp and rectosigmoid polyp both benign hyperplastic colonic polyp, no adenomatous change or malignancy is seen. D/W Oncology, plan is for EUS when more stable. - Dysphagia. Dobhoff in place, Staff Air Tactical Officer recommends Vital 1.5 at 65cc/hr. - Abnormal imaging of the liver on CT scan, consistent with cirrhosis. Abdomen/ Pelvis CT (11/29/16)----> 1. Markedly abnormal appearance of the distal esophagus consistent with the history of esophageal carcinoma. 2. Atherosclerotic calcifications of the aorta and iliac vessels. 3. Cirrhotic appearance to the liver with a mildly nodular contour present. Unclear if he has hx of cirrhosis. There is mention of hx of HCV in EMR, but patient has had undetectable viral load as far back as 2001. Unclear if he had true infection vs. if he was treated. Iron saturation 4.1%, Ferritin 124 , Hepatitis C antibodies (+). Will check genotype/viral load, TERRIE, ASMA, AMA pending, Ceruloplasmin and alpha 1 antitrypsin pending. T. Bili 1.2, AST 168, ALT 60, Alk Phosph 81. Platelets 98, PT 12.8, INR 1.2, Albumin 2.4. Labs and imaging consistent with cirrhosis. Pt does not currently drink, but states that he was a heavy drinker in the past. - Sepsis/Bacteremia/UTI. Urine and Bcx with Staphylococcus aureus. S/P removal of infusaport by GS (12/02). Vanco/Ancef - AMS, Acute metabolic encephalopathy. Head CT (12/01/16)-----> 1. Questionable area of low attenuation left temporal lobe could be artifact versus less likely infarct. MRI may be warranted based on clinical history. 2. No midline shift or mass effect. 3. No intraparenchymal hemorrhage. Brain MRI (12/01/16 )----> Normal examination. Pt is lethargic but awake and nodding appropriately, following commands - Resp. Failure. Chest X-Ray (12/01/16)----> No acute disease. Vent per [facility], plan is for CPAP trials today. Solumerol, nebs, - NSTEMI, CAD. S/P left heart catheterization (11/30/16) with Dr. Krause-Pedro and this revealed RCA 10% lesion mid segment, mild calcifications left main, LAD with calcification from it's proximal segment to its midsegment however, with no significant obstructive lesions, The LAD is giving off to a diagonal which has a 70% lesion in its ostial segment, left circumflex artery with a proximal clot thrombus, S/P percutaneous coronary intervention/bare metal stent to proximal left circumflex. ASA and Plavix, as well as aggressive optimization of coronary artery disease. 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 S/P mohs surgery by a wastewater treatment plant instructor in September of 2015 and shortly after this, developed a mass near the surgical area. S/P at [facility] with Dr. Valdovinos in June of 2016----> underwent extensive head and neck surgery involving a parotidectomy and radical neck dissection in September of 2016. Because of high risk features of local recurrence with perineural invasion and positive margins, it was recommended that he have concurrent chemoradiation therapy. He was evaluated by Dr. Cross for radiation and seen by Dr. Bell for oncology. PET Scan ()----> negative examination of the head and neck, findings characteristic of esophageal neoplasm. Direct visualization is recommended. - Hx HTN (now hypotensive), Hyperlipidemia, DM. per attending. PLAN: - Vital 1.5 at GR 65cc/hr if not extubated - Cont. PPI - Await TERRIE, ASMA, AMA - Await Ceruloplasmin, ALpha 1 Antitrypsin - Miralax 17gram po/peg daily - HCV Genotype and viral load - Monitor CBC, CMP, PT/INR - EUS when more stable - Supportive care - Further recommendations to follow based on results of above - Pt seen and examined by Dr. Kelly and myself and this note is written on her behalf (Nga Ramos) Physician Comments agree with above (Mai Kelly MD) Nga Ramos Dec 03, 2016 09:14 Mai Kelly MD Dec 03, 2016 16:18
--- NOTE | 2016-12-03 10:57 | HHI.IDPN ---
Subjective Subjective Remarks Patient is a 61-year-old male, currently lethargic, and unable to give any history. History has been obtained from the chart. 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 It was reportedly malignant as well. He presented to the hospital complaining of generalized weakness, abdominal pain and progressive swallowing difficulty over the last 3 weeks. Evaluation in the emergency room revealed abnormal EKG, and he underwent cardiac catheterization. He had non-ST CT, and had revascularization with stent placement of his left circumflex artery. Patient is spiked to 103, and there were 2 blood cultures done yesterday that are now reported as growing staph aureus. Patient currently has a Saxena catheter. There is a lot of sediment in his urine, and his urine culture is also showing staph aureus. CT of the abdomen and pelvis did not show any abnormality except the soft tissue mass in the esophagus. He had atherosclerosis of his vasculature. There was also evidence of possible liver cirrhosis. Patient is being evaluated for chemotherapy and radiation, but he has not been started. He had an [id number] placement on November 12 on his right upper chest. Notes reviewed D/W RN Noted to have drainage from port yesterday Port removed by surgery All BC are (+) with MSSA Tolerating CPAP this morning Temps better BP ok Awake and responding On levophed Antibiotics Ancef Vancomycin Lines Port - removed 12/02 LSC TLC - 12/02 Past Medical History Hypertension Hyperlipidemia CAD Diabetes 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 and he had good margins Recurrent squamous cell carcinoma on the left face, with involvement of the parotid gland, status post surgery at [facility] Recently found to have esophageal mass Past Surgical History Appendectomy Liver Biopsy Resection of a squamous cell carcinoma on the left cheek in 2011 Extensive surgery on the left face and neck for recurrent squamous cell carcinoma Port Placement November 12, 2016 Allergies: Coded Allergies: Penicillin (Verified Allergy, Mild, Hives, 11/12/16) Objective . Vital Signs Date Time Temp Pulse Resp B/P Pulse Ox O2 Delivery O2 Flow Rate FiO2 12/03/16 09:17 97 40 12/03/16 08:55 40 12/03/16 07:53 93 45 12/03/16 06:00 116 12/03/16 04:00 118 12/03/16 04:00 45 12/03/16 04:00 98.8 118 18 97/59 99 94/62 12/03/16 03:35 97 45 12/03/16 02:00 120 12/03/16 00:00 122 12/03/16 00:00 45 12/03/16 00:00 99.0 122 20 102/62 98 96/62 12/02/16 23:31 98 45 12/02/16 22:00 120 12/02/16 21:09 98 45 12/02/16 20:00 50 12/02/16 20:00 120 12/02/16 20:00 98.1 120 12 90/62 98 86/55 12/02/16 18:00 121 12/02/16 16:00 99.4 116 17 88/58 98 12/02/16 16:00 50 12/02/16 16:00 116 12/02/16 14:00 120 12/02/16 12:00 99.9 117 16 108/64 94 12/02/16 12:00 117 12/02/16 11:03 98 50 12/02/16 12/02/16 12/03/16 15:00 23:00 07:00 Intake Total 4280 ml 1534 ml 2162 ml Output Total 650 ml 300 ml 450 ml Balance 3630 ml 1234 ml 1712 ml IV Total 4160 ml 1534 ml 2162 ml Other 120 ml Output Urine Total 650 ml 300 ml 450 ml . Laboratory Tests Test 12/02/16 12/03/16 04:15 03:28 White Blood Count 9.6 TH/MM3 8.9 TH/MM3 Red Blood Count 2.85 MIL/MM3 3.07 MIL/MM3 Hemoglobin 8.0 GM/DL 8.4 GM/DL Hematocrit 23.6 % 25.9 % Mean Corpuscular Volume 82.7 FL 84.6 FL Mean Corpuscular Hemoglobin 28.1 PG 27.5 PG Mean Corpuscular Hemoglobin 34.0 % 32.5 % Concent Red Cell Distribution Width 15.7 % 16.2 % Platelet Count 85 TH/MM3 125 TH/MM3 Mean Platelet Volume 10.0 FL 9.6 FL Neutrophils (%) (Auto) 83.7 % 89.6 % Lymphocytes (%) (Auto) 8.8 % 5.5 % Monocytes (%) (Auto) 7.2 % 4.7 % Eosinophils (%) (Auto) 0.0 % 0.1 % Basophils (%) (Auto) 0.3 % 0.1 % Neutrophils # (Auto) 8.1 TH/MM3 8.0 TH/MM3 Lymphocytes # (Auto) 0.8 TH/MM3 0.5 TH/MM3 Monocytes # (Auto) 0.7 TH/MM3 0.4 TH/MM3 Eosinophils # (Auto) 0.0 TH/MM3 0.0 TH/MM3 Basophils # (Auto) 0.0 TH/MM3 0.0 TH/MM3 CBC Comment AUTO DIFF DIFF FINAL Differential Comment AUTO DIFF CONFIRMED Platelet Estimate LOW Platelet Morphology Comment ENLARGED Ovalocytes 1+ Haptoglobin 498 MG/DL Laboratory Tests Test 12/01/16 12/02/16 12/02/16 12/03/16 17:05 04:15 06:35 03:27 Potassium Level 3.5 MEQ/L 3.5 MEQ/L 3.4 MEQ/L Ferritin 124 NG/ML Ammonia LESS THAN 10 MCMOL/L Tumor Marker Alpha Fetoprotein 1.7 NG/ML Sodium Level 138 MEQ/L 136 MEQ/L Chloride Level 106 MEQ/L 100 MEQ/L Carbon Dioxide Level 20.8 MEQ/L 25.4 MEQ/L Anion Gap 11 MEQ/L 11 MEQ/L Blood Urea Nitrogen 41 MG/DL 54 MG/DL Creatinine 1.34 MG/DL 1.45 MG/DL Estimat Glomerular Filtration 55 ML/MIN 50 ML/MIN Rate Random Glucose 138 MG/DL 400 MG/DL Calcium Level 6.7 MG/DL 6.7 MG/DL Protein Corrected Calcium 7.3 MG/DL 7.3 MG/DL Total Bilirubin 0.8 MG/DL 1.2 MG/DL Aspartate Amino Transf 240 U/L 168 U/L (AST/SGOT) Alanine Aminotransferase 72 U/L 60 U/L (ALT/SGPT) Alkaline Phosphatase 64 U/L 81 U/L Total Protein 5.8 GM/DL 5.9 GM/DL Albumin 2.1 GM/DL 2.0 GM/DL Lactic Acid Level 1.7 mmol/L Magnesium Level 1.8 MG/DL Lactate Dehydrogenase 503 U/L Microbiology Date/Time Procedure Status Source Growth 12/01/16 10:45 Aerobic Blood Culture - Final Complete Blood Peripheral Staphylococcus Aureus 12/01/16 10:45 Anaerobic Blood Culture - Final Complete Staphylococcus Aureus 12/01/16 14:04 Aerobic Blood Culture - Final Resulted Blood Line Staphylococcus Aureus 12/01/16 14:04 Anaerobic Blood Culture - Preliminary Resulted Blood Line NO GROWTH IN 1 DAY 12/01/16 17:00 Urine Culture - Final Complete Urine Catheterized Urine Staphylococcus Aureus 12/01/16 20:25 Aerobic Blood Culture - Final Resulted Blood Peripheral Staphylococcus Aureus 12/01/16 20:25 Anaerobic Blood Culture - Preliminary Resulted Blood Peripheral NO GROWTH IN 1 DAY 12/02/16 04:31 Aerobic Blood Culture - Preliminary Resulted Blood Peripheral Gram Positive Cocci 12/02/16 04:31 Anaerobic Blood Culture Resulted Blood Peripheral Pending 12/02/16 08:10 Gram Stain - Final Resulted Sputum Endotracheal 12/02/16 08:10 Sputum Culture Resulted Sputum Endotracheal Pending 12/02/16 15:25 Gram Stain - Final Resulted Wound Chest 12/02/16 15:25 Wound Culture Resulted Wound Chest Pending 12/02/16 20:00 Wound Culture Received Catheter Tip Other Pending 12/03/16 03:28 Aerobic Blood Culture Received Blood Peripheral Pending 12/03/16 03:28 Anaerobic Blood Culture Received Blood Peripheral Pending Imaging Chest X-Ray 12/03/16 0600 Signed Impressions: Service Date/Time: Saturday, December 03, 2016 04:43 - CONCLUSION: Increasing consolidation in the left lower lung. Bilateral interstitial changes. Niko Wilcox MD Chest X-Ray 12/03/16 0000 Signed Impressions: Service Date/Time: Saturday, December 03, 2016 07:48 - CONCLUSION: 1. Persistent left retrocardiac density and slight interstitial prominence. Jagjit Tapia MD Chest X-Ray 12/02/16 0000 Signed Impressions: Service Date/Time: Friday, December 02, 2016 15:55 - CONCLUSION: Normal examination with endotracheal tube and central lines in good position. Barrett Rodriguez MD Chest X-Ray 12/02/16 0000 Signed Impressions: Service Date/Time: Friday, December 02, 2016 08:24 - CONCLUSION: Mild perihilar vascular congestion. Endotracheal tube is in good position Barrett Rodriguez MD Chest X-Ray 12/02/16 0000 Signed Impressions: Service Date/Time: Friday, December 02, 2016 06:53 - CONCLUSION: Underinflated examination with atelectasis at the lung bases. Given the technique, no acute abnormality or significant interval change is appreciated. Washington Marroquin MD Chest X-Ray 12/02/16 0000 Signed Impressions: Service Date/Time: Friday, December 02, 2016 08:24 - CONCLUSION: Mild perihilar vascular congestion. Endotracheal tube is in good position Barrett Rodriguez MD Head CT 12/01/16 0000 Signed Impressions: Service Date/Time: Thursday, December 01, 2016 07:59 - CONCLUSION: 1. Questionable area of low attenuation left temporal lobe could be artifact versus less likely infarct. MRI may be warranted based on clinical history. 2. No midline shift or mass effect. 3. No intraparenchymal hemorrhage. Jagjit Tapia MD Brain MRI 12/01/16 0000 Signed Impressions: Service Date/Time: Thursday, December 01, 2016 12:07 - CONCLUSION: Normal examination. Barrett Rodriguez MD Abdomen X-Ray 12/01/16 0000 Signed Impressions: Service Date/Time: Thursday, December 01, 2016 16:48 - CONCLUSION: No evidence of obstruction. Feeding tube tip in the distal stomach. Barrett Rodriguez MD Abdomen/Pelvis CT 11/29/16 2356 Signed Impressions: Service Date/Time: Wednesday, November 30, 2016 01:35 - CONCLUSION: 1. Markedly abnormal appearance of the distal esophagus consistent with the history of esophageal carcinoma. 2. Atherosclerotic calcifications of the aorta and iliac vessels. 3. Cirrhotic appearance to the liver with a mildly nodular contour present. Erik Simon MD CT Angiography 11/29/16 3160 Signed Impressions: Service Date/Time: Wednesday, November 30, 2016 01:35 - CONCLUSION: 1. No evidence for pulmonary embolism or pneumonia. 2. Abnormal appearance of the esophagus with and soft tissue consistent with the history of carcinoma. Erik Simon MD Physical Exam GENERAL: Awake,, following commands, on CPAP, slight tachypnea SKIN: Warm and dry. No generalized rash, no ecchymoses. Has embolic lesions in his L big toe no change HEAD: Atraumatic. Normocephalic. No temporal wasting, or tenderness. EYES: Bowden conjunctiva. has improving petechia in both lower eyelids. Pupils equal, round and reactive to light. Extraocular movements full and intact. No scleral icterus. No injection or drainage. EARS, NOSE AND THROAT: Nose without bleeding or purulent nasal discharge. No sinus tenderness. Orally intubated NECK: Trachea midline. Supple and not tender, no meningeal signs CARDIOVASCULAR: Regular rate and rhythm. No murmurs, rubs or gallops heard. RESPIRATORY: Coarse BS bilaterally. Incision R upper chest where port was before, with packing and has bloody drainage ABDOMEN: Soft, mildly distended. Mild diffuse tenderness, no guarding. Bowel sounds present and normoactive. No rebound. No organomegaly. EXTREMITIES: No clubbing, cyanosis. Has mild pedal edema. No joint effusion , has good ROM. No calf tenderness. Well perfused and warm. NEUROLOGICAL: Awake and following commands PSYCHIATRIC: Cooperative LINE: Has new line LSC, site ok. Previous port site with 1 inch incision and packing, and has bloody drainage : Saxena in place, with sediment Assessment & Plan Remarks IMPRESSION Sepsis, with shock has MSSA due to port infection - S/P removal port 12/02 - now with shock Respiratory failure (+) UC with Staph aureus, due to current bacteremia Recurrent squamous cell CA Esophageal CA Lethargy and SOB due to sepsis - has acidosis Renal insufficiency, due to sepsis and shock RECOMMENDATION Follow repeat BC to document clearing Stop Vancomycin Continue IV Ancef Follow C/S Follow temps Monitor respiratory status Monitor progress Weaning per CCM D/W Carola Dick MD Dec 03, 2016 10:57
[2016-12-03 11:23] LABS: BLOOD GAS BASE EXCESS 0.4 mmol/L (-2-2); BLOOD GAS CARBOXYHEMOGLOBIN 1.6 % (0-4); BLOOD GAS HCO3 24 mmol/L (22-26); BLOOD GAS METHEMOGLOBIN 1.1 % (0-2); BLOOD GAS O2 HGB SATURATION 95 % (90-100); BLOOD GAS OXYGEN CONTENT 11.8 Vol % (12.0-20.0); BLOOD GAS PCO2 32 mmHg (38-42); BLOOD GAS PO2 90 mmHg (61-120); BLOOD GAS TOTAL HGB 8.8 G/DL (12.0-16.0); CRITICAL VALUE NO; DRAW SITE ART LINE; FIO2 40 %; OXYGEN DEVICE VENTILATOR; STAT NO; TEMP CORR TO 98.6; VENT SETTINGS IPAP5EPAP5
[2016-12-03] MEDS ORDERED: BUMETANIDE INJ 1 MG/4 ML VIAL ONE (11:46)
--- NOTE | 2016-12-03 13:00 | HHI.PR ---
Subjective Subjective Notes Intubated/Sedated ROMAN Arreola at bedside Objective Vitals/I&O Vital Signs Date Time Temp Pulse Resp B/P Pulse Ox O2 Delivery O2 Flow Rate FiO2 12/03/16 12:10 93 Nasal Cannula 4 12/03/16 09:17 40 12/03/16 06:00 116 12/03/16 04:00 98.8 18 97/59 94/62 Labs Laboratory Tests Test 12/02/16 12/02/16 12/03/16 12/03/16 15:00 21:23 03:27 03:28 Blood Gas Puncture Site ART LINE Blood Gas Patient Temperature 98.6 Blood Gas HCO3 16 Blood Gas Base Excess -8.1 Blood Gas Oxygen Saturation 95 Arterial Blood pH 7.35 Arterial Blood Partial 31 Pressure CO2 Arterial Blood Partial 98 Pressure O2 Arterial Blood Oxygen Content 11.3 Arterial Blood 1.4 Carboxyhemoglobin Arterial Blood Methemoglobin 1.0 Blood Gas Hemoglobin 8.3 Oxygen Delivery Device VENTILATOR Blood Gas Ventilator Setting A/C 650/18/10PEEP Blood Gas Inspired Oxygen 50 Vancomycin Level Trough 15.3 Sodium Level 136 Potassium Level 3.4 Chloride Level 100 Carbon Dioxide Level 25.4 Anion Gap 11 Blood Urea Nitrogen 54 Creatinine 1.45 Estimat Glomerular Filtration 50 Rate Random Glucose 400 Calcium Level 6.7 Protein Corrected Calcium 7.3 Magnesium Level 1.8 Total Bilirubin 1.2 Aspartate Amino Transf 168 (AST/SGOT) Alanine Aminotransferase 60 (ALT/SGPT) Alkaline Phosphatase 81 Lactate Dehydrogenase 503 Total Protein 5.9 Albumin 2.0 White Blood Count 8.9 Red Blood Count 3.07 Hemoglobin 8.4 Hematocrit 25.9 Mean Corpuscular Volume 84.6 Mean Corpuscular Hemoglobin 27.5 Mean Corpuscular Hemoglobin 32.5 Concent Red Cell Distribution Width 16.2 Platelet Count 125 Mean Platelet Volume 9.6 Neutrophils (%) (Auto) 89.6 Lymphocytes (%) (Auto) 5.5 Monocytes (%) (Auto) 4.7 Eosinophils (%) (Auto) 0.1 Basophils (%) (Auto) 0.1 Neutrophils # (Auto) 8.0 Lymphocytes # (Auto) 0.5 Monocytes # (Auto) 0.4 Eosinophils # (Auto) 0.0 Basophils # (Auto) 0.0 CBC Comment DIFF FINAL Differential Comment Haptoglobin 498 Prothrombin Time 12.7 Prothromb Time International 1.1 Ratio Fibrinogen 623 Test 12/03/16 12/03/16 12/03/16 08:00 08:07 11:03 Blood Gas Puncture Site ART LINE CENTRAL LINE ART LINE Blood Gas Patient Temperature 98.6 98.6 98.6 Blood Gas HCO3 25 24 Blood Gas Base Excess 1.0 0.4 Blood Gas Oxygen Saturation 96 95 Arterial Blood pH 7.46 7.48 Arterial Blood Partial 35 32 Pressure CO2 Arterial Blood Partial 96 90 Pressure O2 Arterial Blood Oxygen Content 11.8 11.8 Arterial Blood 1.6 1.6 Carboxyhemoglobin Arterial Blood Methemoglobin 0.7 1.1 Blood Gas Hemoglobin 8.7 8.8 Oxygen Delivery Device VENTILATOR VENTILATOR VENTILATOR Blood Gas Ventilator Setting AC/RR18/550/PEEP5 AC/RR18/VT550/PEEP5 [id number] Blood Gas Inspired Oxygen 45 45 40 Venous Blood pH 7.43 Venous Blood Partial Pressure 40 CO2 Venous Blood Partial Pressure 41 O2 Venous Blood HCO3 26 Venous Blood Oxygen Saturation 68 Venous Blood Oxygen Content 8.3 Venous Blood Base Excess 2.1 Date/Time Procedure Status Source Growth 12/03/16 03:28 Aerobic Blood Culture Received Blood Peripheral Pending 12/03/16 03:28 Anaerobic Blood Culture Received Blood Peripheral Pending 12/02/16 20:00 Wound Culture Received Catheter Tip Other Pending 12/02/16 15:25 Gram Stain - Final Resulted Wound Chest 12/02/16 15:25 Wound Culture Resulted Wound Chest Pending 12/02/16 04:31 Aerobic Blood Culture - Preliminary Resulted Blood Peripheral Gram Positive Cocci 12/02/16 04:31 Anaerobic Blood Culture - Preliminary Resulted Blood Peripheral NO GROWTH IN 1 DAY 12/01/16 20:25 Aerobic Blood Culture - Final Resulted Blood Peripheral Staphylococcus Aureus 12/01/16 20:25 Anaerobic Blood Culture - Preliminary Resulted Blood Peripheral NO GROWTH IN 2 DAYS 12/01/16 17:00 Urine Culture - Final Complete Urine Catheterized Urine Staphylococcus Aureus Cardiovascular: Regular Lungs: Clear Abdomen: Non-distended, Non-tender Extremities: Other (mild general edema ) Narrative Exam RIGHT subclavian: s/p port removal; packing removed; wound bed is c/d/i; repacked and dry dressing applied A/P Assessment and Plan 61 year old male s/p Infusaport removal -Dressing change daily: saline soaked 2x2 loosely packed into wound; cover with dry 4x4 and secure with paper tape -CCM following -Discussed with ROMAN Arreola Attending Note - Dr. Rich Poor physical condition Wound ok Will recheck in a few days Continue dressing changes The exam, history, and the medical decision-making described in the above note were completed with the assistance of the mid-level provider. I reviewed and agree with the findings presented. I attest that I had a [id number] encounter with the patient on the same day, and personally performed and documented my assessment and findings in the medical record. Cindy Parekh Dec 03, 2016 13:00 Bebeto Rich MD Dec 09, 2016 19:42
[2016-12-03] MEDS: HYDROmorphone HCL PF 1 MG/ML VIAL IV PRN ×3 (14:35→22:24)
[2016-12-03] MEDS ORDERED: BUMETANIDE INJ 1 MG/4 ML VIAL IV PUSH ONE (15:00)
[2016-12-03 15:05] LABS: ANA SCREEN NEG (NEG)
[2016-12-03] MEDS ORDERED: PHARMACY ORDERED LAB ONE (17:45)
[2016-12-03] MEDS: CEFEPIME INJ 2,000 MG in SODIUM CHLORIDE 0.9% INJ 100 ML IV SCH (18:28)
--- NOTE | 2016-12-03 22:40 | PD.ONC.PN ---
Subjective Subjective Remarks remains critically ill intubated and sedated slow wean off the pressors ongoing fever curve improving Objective Data Date Time Temp Pulse Resp B/P Pulse Ox O2 Delivery O2 Flow Rate FiO2 12/03/16 18:00 103 12/03/16 16:00 98.6 98 13 108/60 94 95/59 12/03/16 16:00 98 12/03/16 14:00 96 12/03/16 12:10 93 Nasal Cannula 4 12/03/16 12:10 93 Nasal Cannula 3.00 12/03/16 12:00 102 12/03/16 12:00 98.2 102 19 105/62 89 105/64 12/03/16 10:15 97 12/03/16 09:17 97 40 12/03/16 08:56 40 12/03/16 08:55 40 12/03/16 08:00 96 12/03/16 08:00 40 12/03/16 08:00 98.5 96 18 103/67 98 113/66 12/03/16 07:53 93 45 12/03/16 06:00 116 12/03/16 04:00 118 12/03/16 04:00 45 12/03/16 04:00 98.8 118 18 97/59 99 94/62 12/03/16 03:35 97 45 12/03/16 02:00 120 12/03/16 00:00 122 12/03/16 00:00 45 12/03/16 00:00 99.0 122 20 102/62 98 96/62 12/02/16 23:31 98 45 12/03/16 12/03/16 12/03/16 07:00 15:00 23:00 Intake Total 2162 ml 1438 ml Output Total 450 ml 1500 ml Balance 1712 ml -62 ml Result Diagram: 12/03/16 0328 12/03/16 0327 Laboratory Results Laboratory Tests Test 12/03/16 12/03/16 12/03/16 12/03/16 03:27 03:28 08:00 08:07 Sodium Level 136 MEQ/L Potassium Level 3.4 MEQ/L Chloride Level 100 MEQ/L Carbon Dioxide Level 25.4 MEQ/L Anion Gap 11 MEQ/L Blood Urea Nitrogen 54 MG/DL Creatinine 1.45 MG/DL Estimat Glomerular Filtration 50 ML/MIN Rate Random Glucose 400 MG/DL Calcium Level 6.7 MG/DL Protein Corrected Calcium 7.3 MG/DL Magnesium Level 1.8 MG/DL Total Bilirubin 1.2 MG/DL Aspartate Amino Transf 168 U/L (AST/SGOT) Alanine Aminotransferase 60 U/L (ALT/SGPT) Alkaline Phosphatase 81 U/L Lactate Dehydrogenase 503 U/L Total Protein 5.9 GM/DL Albumin 2.0 GM/DL White Blood Count 8.9 TH/MM3 Red Blood Count 3.07 MIL/MM3 Hemoglobin 8.4 GM/DL Hematocrit 25.9 % Mean Corpuscular Volume 84.6 FL Mean Corpuscular Hemoglobin 27.5 PG Mean Corpuscular Hemoglobin 32.5 % Concent Red Cell Distribution Width 16.2 % Platelet Count 125 TH/MM3 Mean Platelet Volume 9.6 FL Neutrophils (%) (Auto) 89.6 % Lymphocytes (%) (Auto) 5.5 % Monocytes (%) (Auto) 4.7 % Eosinophils (%) (Auto) 0.1 % Basophils (%) (Auto) 0.1 % Neutrophils # (Auto) 8.0 TH/MM3 Lymphocytes # (Auto) 0.5 TH/MM3 Monocytes # (Auto) 0.4 TH/MM3 Eosinophils # (Auto) 0.0 TH/MM3 Basophils # (Auto) 0.0 TH/MM3 CBC Comment DIFF FINAL Differential Comment Haptoglobin 498 MG/DL Prothrombin Time 12.7 SEC Prothromb Time International 1.1 RATIO Ratio Fibrinogen 623 mg/dL Blood Gas Puncture Site ART LINE CENTRAL LINE Blood Gas Patient Temperature 98.6 98.6 Blood Gas HCO3 25 mmol/L Blood Gas Base Excess 1.0 mmol/L Blood Gas Oxygen Saturation 96 % Arterial Blood pH 7.46 Arterial Blood Partial 35 mmHg Pressure CO2 Arterial Blood Partial 96 mmHg Pressure O2 Arterial Blood Oxygen Content 11.8 Vol % Arterial Blood 1.6 % Carboxyhemoglobin Arterial Blood Methemoglobin 0.7 % Blood Gas Hemoglobin 8.7 G/DL Oxygen Delivery Device VENTILATOR VENTILATOR Blood Gas Ventilator Setting AC/RR18/550/PEEP5 AC/RR18/VT550/PEEP5 Blood Gas Inspired Oxygen 45 % 45 % Venous Blood pH 7.43 Venous Blood Partial Pressure 40 mmHg CO2 Venous Blood Partial Pressure 41 mmHg O2 Venous Blood HCO3 26 mmol/L Venous Blood Oxygen Saturation 68 % Venous Blood Oxygen Content 8.3 Vol % Venous Blood Base Excess 2.1 mmol/L Test 12/03/16 11:03 Blood Gas Puncture Site ART LINE Blood Gas Patient Temperature 98.6 Blood Gas HCO3 24 mmol/L Blood Gas Base Excess 0.4 mmol/L Blood Gas Oxygen Saturation 95 % Arterial Blood pH 7.48 Arterial Blood Partial 32 mmHg Pressure CO2 Arterial Blood Partial 90 mmHg Pressure O2 Arterial Blood Oxygen Content 11.8 Vol % Arterial Blood 1.6 % Carboxyhemoglobin Arterial Blood Methemoglobin 1.1 % Blood Gas Hemoglobin 8.8 G/DL Oxygen Delivery Device VENTILATOR Blood Gas Ventilator Setting [id number] Blood Gas Inspired Oxygen 40 % Culture Results Microbiology Date/Time Procedure Status Source Growth 12/01/16 10:45 Aerobic Blood Culture - Final Complete Blood Peripheral Staphylococcus Aureus 12/01/16 10:45 Anaerobic Blood Culture - Final Complete Staphylococcus Aureus 12/01/16 14:04 Aerobic Blood Culture - Final Resulted Blood Line Staphylococcus Aureus 12/01/16 14:04 Anaerobic Blood Culture - Preliminary Resulted Blood Line NO GROWTH IN 2 DAYS 12/01/16 17:00 Urine Culture - Final Complete Urine Catheterized Urine Staphylococcus Aureus 12/01/16 20:25 Aerobic Blood Culture - Final Resulted Blood Peripheral Staphylococcus Aureus 12/01/16 20:25 Anaerobic Blood Culture - Preliminary Resulted Blood Peripheral NO GROWTH IN 2 DAYS 12/02/16 04:31 Aerobic Blood Culture - Preliminary Resulted Blood Peripheral Gram Positive Cocci 12/02/16 04:31 Anaerobic Blood Culture - Preliminary Resulted Blood Peripheral NO GROWTH IN 1 DAY 12/02/16 08:10 Gram Stain - Final Resulted Sputum Endotracheal 12/02/16 08:10 Sputum Culture - Preliminary Resulted Gram Negative Nilay 12/02/16 15:25 Gram Stain - Final Resulted Wound Chest 12/02/16 15:25 Wound Culture - Preliminary Resulted Staphylococcus Aureus 12/02/16 20:00 Wound Culture - Preliminary Resulted Catheter Tip Other Staphylococcus Aureus 12/03/16 03:28 Aerobic Blood Culture Received Blood Peripheral Pending 12/03/16 03:28 Anaerobic Blood Culture Received Blood Peripheral Pending Imaging Studies Last 24 hours Impressions Chest X-Ray 12/03/16 0600 Signed Impressions: Service Date/Time: Saturday, December 03, 2016 04:43 - CONCLUSION: Increasing consolidation in the left lower lung. Bilateral interstitial changes. Niko Wilcox MD Chest X-Ray 12/03/16 0000 Signed Impressions: Service Date/Time: Saturday, December 03, 2016 07:48 - CONCLUSION: 1. Persistent left retrocardiac density and slight interstitial prominence. Jagjit Tapia MD Administered Medications Medications (Trade) Dose Ordered Sig/Geovanny Route PRN Reason Start Time Stop Time Status Last Admin Dose Admin Sodium Chloride (NS Flush) 2 ml UNSCH PRN IV FLUSH FLUSH AFTER USING IV ACCESS 11/30/16 02:45 12/01/16 21:53 Sodium Chloride (NS Flush) 2 ml BID IV FLUSH 11/30/16 09:00 12/03/16 08:36 Hydromorphone HCl (Dilaudid Pf Inj) 1 mg Q3H PRN IV Pain 6-10 11/30/16 02:45 12/03/16 18:50 Senna/Docusate Sodium (Rere-Colace) 1 tab BID PO 11/30/16 09:00 12/03/16 08:37 Pantoprazole Sodium (Protonix Inj) 40 mg Q12H IV PUSH 11/30/16 09:00 12/03/16 08:26 Chlorhexidine Gluconate (Chlorhexidine 2% Cloth) 3 pack DAILY@04 TOPICAL 12/01/16 04:00 12/05/16 04:01 12/03/16 01:50 Acetaminophen (Tylenol) 325 mg Q4H PRN PO PAIN SCALE 1 TO 2 11/30/16 13:45 12/01/16 17:36 Aspirin (Aspirin Chew) 81 mg DAILY PO 11/30/16 13:45 12/03/16 08:37 Clopidogrel Bisulfate (Plavix) 75 mg DAILY PO 12/01/16 09:00 12/03/16 08:27 Metoprolol Tartrate (Lopressor) 12.5 mg BID PO 11/30/16 21:00 Hold 12/01/16 09:51 Atorvastatin Calcium (Lipitor) 10 mg HS PO 11/30/16 21:00 Hold 12/02/16 21:22 Sodium Chloride (NS Flush) 5 ml Q21D IV FLUSH 11/30/16 18:00 11/30/16 18:00 Heparin Sodium (Porcine) (Heparin Central Flush) 500 units Q21D IV FLUSH 11/30/16 18:00 11/30/16 18:04 Lorazepam (Ativan Inj) 1 mg Q4H PRN IV PUSH CIWA 8 - 10 12/01/16 13:00 12/01/16 21:52 Lorazepam 2 mg 2 mg Q2H PRN IV PUSH CIWA 11-14 12/01/16 13:00 12/02/16 04:37 Cefazolin Sodium/ Dextrose 50 ml @ 100 mls/hr Q8H IV 12/01/16 18:00 Hold 12/03/16 08:27 Sodium Chloride (NS 1000 ml Inj) 1,000 ml @ 50 mls/hr Q20H IV 12/01/16 16:30 12/03/16 08:44 Acetaminophen (Tylenol 650 Mg/ 20 ml Liq) 650 mg Q6H PRN PO FEVER 12/01/16 17:30 12/02/16 01:07 Methylprednisolone Sodium Succinate (SoluMEDROL INJ) 60 mg Q8HR IV PUSH 12/02/16 14:00 12/03/16 14:33 Enoxaparin Sodium (Lovenox Inj) 40 mg Q24H SQ 12/02/16 09:00 12/03/16 08:26 Chlorhexidine Gluconate 15 ml 15 ml BID@08,20 MT 12/02/16 08:00 12/03/16 08:27 Fentanyl Citrate 250 ml @ 0 mls/hr TITRATE IV 12/02/16 08:00 12/03/16 04:05 Multivitamins 10 ml/Thiamine HCl 100 mg/Folic Acid 1 mg/Sodium Chloride 511.2 ml @ 125 mls/hr DAILY IV 12/02/16 09:00 12/03/16 08:31 Vasopressin 40 units/Dextrose 100 ml @ 4.5 mls/hr Q02O22V IV 12/02/16 11:04 12/03/16 04:17 Norepinephrine Bitartrate (Levophed-Dextrose Drip) 250 ml @ 0 mls/hr TITRATE IV 12/02/16 15:15 12/03/16 04:05 Insulin Aspart 1 1 Q4HR SQ 12/03/16 00:00 12/03/16 18:51 Cefepime HCl/ Sodium Chloride (Maxipime Inj/NS Inj) 100 ml @ 200 mls/hr Q8H IV 12/03/16 17:00 12/03/16 18:28 Objective Remarks GENERAL: critically ill, intubated SKIN: Warm and dry. NECK: Supple, trachea midline. No JVD or lymphadenopathy. LYMPHATIC: No adenopathy. CARDIOVASCULAR: Regular rate and rhythm without murmurs. RESPIRATORY: Breath sounds equal bilaterally. No accessory muscle use. GASTROINTESTINAL: Abdomen soft, non-tender, nondistended. EXTREMITIES: No cyanosis, or edema. Assessment/Plan Problem List: (1) NSTEMI (non-ST elevated myocardial infarction) Status: Acute Plan: --Elevated troponin and ST-segment changes consistent with acute ME. --cardiology following --plavix and ASA (2) SCC (squamous cell carcinoma) Status: Acute Plan: --has a head and neck, lung malignancy which was locally advanced. --received definitive treatment with surgery. Post surgery he had positive margins and some poor risk features and he was about to get concurrent chemotherapy and radiation and adjuvantly to achieve local control of the disease--waiting to receive concurrent chemo/XRT until we have biopsied the esophageal mass --PET scan to stage his disease prior to treatment showed an esophageal mass which could be a primary esophageal cancer. --If he is found to have esophageal cancer, the preference would be to treat the esophageal cancer first with chemotherapy and radiation. (3) Esophageal mass Status: Acute Plan: --concerning for primary esophageal cancer. --patient had OP EGD with biopsy, pathology showed adenocarcinoma. will need EUS for staging when available. --EGD/Colonoscopy, 11/20/16--showed long stricture in the mid esophagus and distal esophagus, multiple biopsies were performed Pathology revealed invasive adenocarcinoma- distal esophagus (4) Normocytic anemia Status: Acute Plan: --transfuse packed red blood cells if his hemoglobin drops below 8. --stool hemoccult. --iron deficient --will need IV iron. (5) Sepsis Status: Acute Plan: --BC + GPC, S. 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 1. Acute thrombocytopenia due to sepsis/DIC - PLT count trending up - continue to monitor - check Coags/Haptoglobin/Fibrinogen daily 2. Anemia 2/2 to acute illness - Continue to monitor - no blood products today 3. Sepsis/respiratory failure/hypotension--per primary team 4. 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 Esophageal mass - EUS when stable . Problem Qualifiers (1) Sepsis: Qualified Code: A41.9 - Sepsis, due to unspecified organism Brant Bell MD Dec 03, 2016 22:40
[2016-12-04] VITALS (25 sets, daily range): BP systolic 101–140; BP diastolic 56–73; PULSE 81–99; RESP 11–21; TEMP 97.1–98.4; O2SAT 74–96
[2016-12-04] MEDS: CEFEPIME INJ 2,000 MG in SODIUM CHLORIDE 0.9% INJ 100 ML IV SCH ×3 (01:05→16:57)
[2016-12-04] MEDS: INSULIN ASPART SUPPLEMENTAL SCALE SQ SCH ×6 (01:06→21:18)
[2016-12-04] MEDS: RESP: ALBUTEROL 2.5 MG/IPRATROPIUM 0.5 MG NEB (SCH) NEB ×4 (02:53→22:20)
[2016-12-04 03:50] LABS: MITOCHONDRIAL ABS LESS THAN 20.0 U (())
[2016-12-04] MEDS: CHLORHEXIDINE GLUCONATE 2 % 1 PACK (2 CLOTHS)(taper/protocol) TOPICAL SCH (04:00)
[2016-12-04 05:22] LABS: AUTOMATED NEUTROPHIL # 6.4 TH/MM3 (1.8-7.7); BASOPHIL % 0.2 % (0.0-2.0); HEMATOCRIT 24.9 % (39.0-51.0); HEMO FLAGS DIFF FINAL; LYMPH % 5.2 % (9.0-44.0); LYMPHOCYTE # 0.4 TH/MM3 (1.0-4.8); MEAN CELL VOLUME 83.3 FL (80.0-100.0); MEAN CORPUSCULAR HEMOGLOBIN 27.2 PG (27.0-34.0); MEAN CORPUSCULAR HGB CONC 32.7 % (32.0-36.0); MONO % 4.7 % (0.0-8.0); NEUT % 89.9 % (16.0-70.0); PLATELET COUNT 125 TH/MM3 (150-450); RED BLOOD COUNT 2.98 MIL/MM3 (4.50-5.90); RED CELL DISTRIBUTION WIDTH 15.9 % (11.6-17.2); WHITE BLOOD COUNT 7.1 TH/MM3 (4.0-11.0)
[2016-12-04 05:34] LABS: INTERNATIONAL NORMALIZED RATIO 1.1 RATIO; PROTHROMBIN TIME - PATIENT 12.5 SEC (9.8-11.6)
[2016-12-04] MEDS: SODIUM CHLOR 0.9% 1000 ML INJ 1,000 ML IV SCH (05:40)
[2016-12-04] MEDS: methylPREDNISolone SOD SUCC 125 MG/2 ML VIAL IV PUSH SCH ×3 (05:40→21:16)
[2016-12-04 06:47] LABS: BICARBONATE 29.2 MEQ/L (21.0-32.0); CALCIUM-PROTEIN CORRECTED 7.9 MG/DL (8.5-10.1); MAGNESIUM 2.2 MG/DL (1.5-2.5); POTASSIUM 3.2 MEQ/L (3.5-5.1); TOTAL BILIRUBIN ADULT 1.2 MG/DL (0.2-1.0)
[2016-12-04] MEDS: HYDROmorphone HCL PF 1 MG/ML VIAL IV PRN ×2 (06:52→09:20)
[2016-12-04] MEDS: VASOPRESSIN INJ 40 UNITS in DEXTROSE 5% IN WATER 100ML INJ 98 ML IV SCH ×2 (07:32)
[2016-12-04] MEDS: CHLORHEXIDINE 0.12% (ORAL KIT) 15 ML CUP MT SCH ×2 (08:00→21:15)
[2016-12-04] MEDS: ACETAMINOPHEN 325 MG TAB PO PRN ×2 (09:12→09:20)
[2016-12-04] MEDS: ENOXAPARIN SODIUM 40 MG/0.4 ML SYRINGE SQ SCH (09:14)
[2016-12-04] MEDS: PANTOPRAZOLE SODIUM 40 MG VIAL IV PUSH SCH ×2 (09:14→21:15)
[2016-12-04] MEDS: POLYETHYLENE GLYCOL 17 GM PKG PO SCH (09:15)
[2016-12-04] MEDS: ASPIRIN 81 MG CHEW TAB PO SCH (09:15)
[2016-12-04] MEDS: CLOPIDOGREL 75 MG TAB PO SCH (09:15)
[2016-12-04] MEDS: DOCUSATE SODIUM 50 MG/SENNA 8.6 MG TAB PO SCH ×2 (09:15→21:15)
[2016-12-04] MEDS: SODIUM CHLORIDE 0.9% FLUSH 10 ML FLUSH IV FLUSH SCH ×2 (09:15→21:15)
[2016-12-04] MEDS: MULTIVITAMIN INJ 10 ML, THIAMINE INJ 100 MG, FOLIC ACID INJ 1 MG in SODIUM CHLOR 0.45% ... IV SCH (09:21)
[2016-12-04] MEDS ORDERED: POTASSIUM PHOSPHATE MONOBASIC 500 MG TAB PO/TUBE PRN (09:30)
[2016-12-04] MEDS ORDERED: BUMETANIDE INJ 1 MG/4 ML VIAL IV PUSH ONE ×2 (09:30→12:00)
[2016-12-04] MEDS ORDERED: POTASSIUM PHOSPHATE MONOBASIC 500 MG TAB PO PRN (09:30)
[2016-12-04] MEDS ORDERED: POTASSIUM CHLOR 20 MEQ PREMIX 100 ML IV PRN ×2 (09:30)
[2016-12-04] MEDS ORDERED: POTASSIUM CHLORIDE 25 MEQ EFFERVESCENT TAB PO PRN (09:30)
[2016-12-04] MEDS ORDERED: MAGNESIUM OXIDE 400 MG TAB PO PRN (09:30)
[2016-12-04] MEDS ORDERED: POTASSIUM PHOSPHATE INJ 30 MMOL in SODIUM CHLOR 0.9% 250 ML INJ 250 ML IV PRN (09:30)
[2016-12-04] MEDS ORDERED: POTASSIUM CHLOR 40 MEQ PREMIX 100 ML IV PRN (09:30)
[2016-12-04] MEDS ORDERED: SODIUM PHOSPHATE INJ 30 MMOL in SODIUM CHLOR 0.9% 250 ML INJ 240 ML IV PRN (09:30)
[2016-12-04] MEDS ORDERED: POTASSIUM CHLORIDE 25 MEQ EFFERVESCENT TAB PO ONE (09:30)
[2016-12-04] MEDS ORDERED: MAGNESIUM SULFATE INJ 4 GM in SODIUM CHLORIDE 0.9% INJ 92 ML IV PRN (09:30)
[2016-12-04] MEDS ORDERED: MAGNESIUM SULFATE INJ 2 GM in SODIUM CHLORIDE 0.9% INJ 96 ML IV PRN (09:30)
[2016-12-04] MEDS: POTASSIUM CHLOR 40 MEQ PREMIX 100 ML IV PRN ×3 (09:59→21:17)
--- NOTE | 2016-12-04 09:59 | RADRPT ---
EXAM DATE/TIME: 12/04/2016 09:21 [facility] COMPARISON: CHEST SINGLE AP, December 03, 2016, 7:48. INDICATIONS : Respiratory disease. MEDICAL HISTORY : Chronic obstructive pulmonary disease. Hypertension. Myocardial infarction. Coronary artery dis ease. Hiatal hernia. GERD. Liver disease. Hep C. Cirrhosis. SURGICAL HISTORY : Appendectomy. ENCOUNTER: Subsequent ACUITY: 4 - 6 days PAIN SCORE: 0/10 LOCATION: Bilateral chest FINDINGS: Patient has been extubated in the interval. There is a feeding-type nasoenteric catheter coursing bey ond the GE junction with tip limited from the image. There is a stable left subclavian catheter in pl [place]. Elevation of the left hemidiaphragm with mild left basilar airspace disease. Mild diffuse inters titial prominence unchanged from prior exam. Cardiomediastinal contours are stable. Remainder of exam is unchanged. CONCLUSION: 1. Continued mild volume loss in the left lower lobe with associated left lower lobe airspace disease . 2. Stable mild positive fluid balance. Escobar Joiner MD on December 04, 2016 at 9:56 Board Certified Radiologist. This report was verified electronically.
[2016-12-04] MEDS: POTASSIUM CHLOR 40 MEQ PREMIX 100 ML IV SCH ×2 (10:00→12:36)
--- NOTE | 2016-12-04 10:02 | HHI.IDPN ---
Subjective Subjective Remarks Patient is a 61-year-old male, currently lethargic, and unable to give any history. History has been obtained from the chart. 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 It was reportedly malignant as well. He presented to the hospital complaining of generalized weakness, abdominal pain and progressive swallowing difficulty over the last 3 weeks. Evaluation in the emergency room revealed abnormal EKG, and he underwent cardiac catheterization. He had non-ST OH, and had revascularization with stent placement of his left circumflex artery. Patient is spiked to 103, and there were 2 blood cultures done yesterday that are now reported as growing staph aureus. Patient currently has a Saxena catheter. There is a lot of sediment in his urine, and his urine culture is also showing staph aureus. CT of the abdomen and pelvis did not show any abnormality except the soft tissue mass in the esophagus. He had atherosclerosis of his vasculature. There was also evidence of possible liver cirrhosis. Patient is being evaluated for chemotherapy and radiation, but he has not been started. He had an [id number] placement on November 12 on his right upper chest. Notes reviewed D/W RN D/W Dr Delarosa Patient has been extubated yesterday On nasal O2 Temps ok BP ok BC and Cath tip with MSSA Sputum with GNR CXR with L base consolidation Antibiotics Cefepime Lines Port - removed 12/02 LSC TLC - 12/02 Past Medical History Hypertension Hyperlipidemia CAD Diabetes 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 and he had good margins Recurrent squamous cell carcinoma on the left face, with involvement of the parotid gland, status post surgery at [facility] Recently found to have esophageal mass Past Surgical History Appendectomy Liver Biopsy Resection of a squamous cell carcinoma on the left cheek in 2011 Extensive surgery on the left face and neck for recurrent squamous cell carcinoma Port Placement November 12, 2016 Allergies: Coded Allergies: Penicillin (Verified Allergy, Mild, Hives, 11/12/16) Objective . Vital Signs Date Time Temp Pulse Resp B/P Pulse Ox O2 Delivery O2 Flow Rate FiO2 12/04/16 06:31 94 Simple Mask 10.00 12/04/16 06:00 90 12/04/16 04:00 98.2 90 16 110/65 92 12/04/16 04:00 90 12/04/16 02:00 81 12/04/16 00:00 90 12/04/16 00:00 98.2 90 11 115/63 93 12/03/16 22:00 91 12/03/16 21:08 93 Nasal Cannula 5.00 12/03/16 20:00 102 12/03/16 20:00 97.9 92 13 101/61 94 Arterial Line 12/03/16 18:00 103 12/03/16 16:00 98.6 98 13 108/60 94 95/59 12/03/16 16:00 98 12/03/16 14:00 96 12/03/16 12:10 93 Nasal Cannula 4 12/03/16 12:10 93 Nasal Cannula 3.00 12/03/16 12:00 102 12/03/16 12:00 98.2 102 19 105/62 89 105/64 12/03/16 10:15 97 12/03/16 12/03/16 12/04/16 15:00 23:00 07:00 Intake Total 1438 ml 215 ml 420 ml Output Total 1500 ml 2000 ml 775 ml Balance -62 ml -1785 ml -355 ml IV Total 1438 ml 215 ml 420 ml Output Urine Total 1500 ml 2000 ml 775 ml # Bowel Movements 1 . Laboratory Tests Test 12/03/16 12/04/16 03:28 04:22 White Blood Count 8.9 TH/MM3 7.1 TH/MM3 Red Blood Count 3.07 MIL/MM3 2.98 MIL/MM3 Hemoglobin 8.4 GM/DL 8.1 GM/DL Hematocrit 25.9 % 24.9 % Mean Corpuscular Volume 84.6 FL 83.3 FL Mean Corpuscular Hemoglobin 27.5 PG 27.2 PG Mean Corpuscular Hemoglobin 32.5 % 32.7 % Concent Red Cell Distribution Width 16.2 % 15.9 % Platelet Count 125 TH/MM3 125 TH/MM3 Mean Platelet Volume 9.6 FL 9.2 FL Neutrophils (%) (Auto) 89.6 % 89.9 % Lymphocytes (%) (Auto) 5.5 % 5.2 % Monocytes (%) (Auto) 4.7 % 4.7 % Eosinophils (%) (Auto) 0.1 % 0.0 % Basophils (%) (Auto) 0.1 % 0.2 % Neutrophils # (Auto) 8.0 TH/MM3 6.4 TH/MM3 Lymphocytes # (Auto) 0.5 TH/MM3 0.4 TH/MM3 Monocytes # (Auto) 0.4 TH/MM3 0.3 TH/MM3 Eosinophils # (Auto) 0.0 TH/MM3 0.0 TH/MM3 Basophils # (Auto) 0.0 TH/MM3 0.0 TH/MM3 CBC Comment DIFF FINAL DIFF FINAL Differential Comment Haptoglobin 498 MG/DL 516 MG/DL Laboratory Tests Test 12/03/16 12/04/16 03:27 04:22 Sodium Level 136 MEQ/L 142 MEQ/L Potassium Level 3.4 MEQ/L 3.2 MEQ/L Chloride Level 100 MEQ/L 104 MEQ/L Carbon Dioxide Level 25.4 MEQ/L 29.2 MEQ/L Anion Gap 11 MEQ/L 9 MEQ/L Blood Urea Nitrogen 54 MG/DL 52 MG/DL Creatinine 1.45 MG/DL 1.09 MG/DL Estimat Glomerular Filtration 50 ML/MIN 69 ML/MIN Rate Random Glucose 400 MG/DL 238 MG/DL Calcium Level 6.7 MG/DL 7.3 MG/DL Protein Corrected Calcium 7.3 MG/DL 7.9 MG/DL Magnesium Level 1.8 MG/DL 2.2 MG/DL Total Bilirubin 1.2 MG/DL 1.2 MG/DL Aspartate Amino Transf 168 U/L 91 U/L (AST/SGOT) Alanine Aminotransferase 60 U/L 43 U/L (ALT/SGPT) Alkaline Phosphatase 81 U/L 74 U/L Lactate Dehydrogenase 503 U/L 534 U/L Total Protein 5.9 GM/DL 5.9 GM/DL Albumin 2.0 GM/DL 2.0 GM/DL Microbiology Date/Time Procedure Status Source Growth 12/01/16 10:45 Aerobic Blood Culture - Final Complete Blood Peripheral Staphylococcus Aureus 12/01/16 10:45 Anaerobic Blood Culture - Final Complete Staphylococcus Aureus 12/01/16 14:04 Aerobic Blood Culture - Final Resulted Blood Line Staphylococcus Aureus 12/01/16 14:04 Anaerobic Blood Culture - Preliminary Resulted Blood Line NO GROWTH IN 2 DAYS 12/01/16 17:00 Urine Culture - Final Complete Urine Catheterized Urine Staphylococcus Aureus 12/01/16 20:25 Aerobic Blood Culture - Final Resulted Blood Peripheral Staphylococcus Aureus 12/01/16 20:25 Anaerobic Blood Culture - Preliminary Resulted Blood Peripheral NO GROWTH IN 2 DAYS 12/02/16 04:31 Aerobic Blood Culture - Preliminary Resulted Blood Peripheral Gram Positive Cocci 12/02/16 04:31 Anaerobic Blood Culture - Preliminary Resulted Blood Peripheral NO GROWTH IN 1 DAY 12/02/16 08:10 Gram Stain - Final Resulted Sputum Endotracheal 12/02/16 08:10 Sputum Culture - Preliminary Resulted Gram Negative Nilay 12/02/16 15:25 Gram Stain - Final Resulted Wound Chest 12/02/16 15:25 Wound Culture - Preliminary Resulted Staphylococcus Aureus 12/02/16 20:00 Wound Culture - Preliminary Resulted Catheter Tip Other Staphylococcus Aureus 12/03/16 03:28 Aerobic Blood Culture Received Blood Peripheral Pending 12/03/16 03:28 Anaerobic Blood Culture Received Blood Peripheral Pending 12/04/16 04:22 Aerobic Blood Culture Received Blood Line Pending 12/04/16 04:22 Anaerobic Blood Culture Received Blood Line Pending Imaging Chest X-Ray 12/03/16 0600 Signed Impressions: Service Date/Time: Saturday, December 03, 2016 04:43 - CONCLUSION: Increasing consolidation in the left lower lung. Bilateral interstitial changes. Niko Wilcox MD Chest X-Ray 12/03/16 0000 Signed Impressions: Service Date/Time: Saturday, December 03, 2016 07:48 - CONCLUSION: 1. Persistent left retrocardiac density and slight interstitial prominence. Jagjit Tapia MD Chest X-Ray 12/02/16 0000 Signed Impressions: Service Date/Time: Friday, December 02, 2016 15:55 - CONCLUSION: Normal examination with endotracheal tube and central lines in good position. Barrett Rodriguez MD Chest X-Ray 12/02/16 0000 Signed Impressions: Service Date/Time: Friday, December 02, 2016 08:24 - CONCLUSION: Mild perihilar vascular congestion. Endotracheal tube is in good position Barrett Rodriguez MD Chest X-Ray 12/02/16 0000 Signed Impressions: Service Date/Time: Friday, December 02, 2016 06:53 - CONCLUSION: Underinflated examination with atelectasis at the lung bases. Given the technique, no acute abnormality or significant interval change is appreciated. Washington Marroquin MD Chest X-Ray 12/02/16 0000 Signed Impressions: Service Date/Time: Friday, December 02, 2016 08:24 - CONCLUSION: Mild perihilar vascular congestion. Endotracheal tube is in good position Barrett Rodriguez MD Head CT 12/01/16 0000 Signed Impressions: Service Date/Time: Thursday, December 01, 2016 07:59 - CONCLUSION: 1. Questionable area of low attenuation left temporal lobe could be artifact versus less likely infarct. MRI may be warranted based on clinical history. 2. No midline shift or mass effect. 3. No intraparenchymal hemorrhage. Jagjit Tapia MD Brain MRI 12/01/16 0000 Signed Impressions: Service Date/Time: Thursday, December 01, 2016 12:07 - CONCLUSION: Normal examination. Barrett Rodriguez MD Abdomen X-Ray 12/01/16 0000 Signed Impressions: Service Date/Time: Thursday, December 01, 2016 16:48 - CONCLUSION: No evidence of obstruction. Feeding tube tip in the distal stomach. Barrett Rodriguez MD Abdomen/Pelvis CT 11/29/16 2356 Signed Impressions: Service Date/Time: Wednesday, November 30, 2016 01:35 - CONCLUSION: 1. Markedly abnormal appearance of the distal esophagus consistent with the history of esophageal carcinoma. 2. Atherosclerotic calcifications of the aorta and iliac vessels. 3. Cirrhotic appearance to the liver with a mildly nodular contour present. Erik Simon MD CT Angiography 11/29/16 2348 Signed Impressions: Service Date/Time: Wednesday, November 30, 2016 01:35 - CONCLUSION: 1. No evidence for pulmonary embolism or pneumonia. 2. Abnormal appearance of the esophagus with and soft tissue consistent with the history of carcinoma. Erik Simon MD Physical Exam GENERAL: Awake, following commands, on nasal O2, moaning a lot SKIN: Warm and dry. No generalized rash, no ecchymoses. Has embolic lesions in his L big toe no change HEAD: Atraumatic. Normocephalic. No temporal wasting, or tenderness. EYES: [place] conjunctiva. Pupils equal, round and reactive to light. Extraocular movements full and intact. No scleral icterus. No injection or drainage. EARS, NOSE AND THROAT: Nose without bleeding or purulent nasal discharge. No sinus tenderness. Orally intubated NECK: Trachea midline. Supple and not tender, no meningeal signs CARDIOVASCULAR: Regular rate and rhythm. No murmurs, rubs or gallops heard. RESPIRATORY: Coarse BS bilaterally. Incision R upper chest where port was before, with packing and has bloody drainage ABDOMEN: Soft, mildly distended. Mild diffuse tenderness, no guarding. Bowel sounds present and normoactive. No rebound. No organomegaly. EXTREMITIES: No clubbing, cyanosis. Has mild pedal edema. No joint effusion , has good ROM. No calf tenderness. Well perfused and warm. NEUROLOGICAL: Awake and following commands, slow to respond PSYCHIATRIC: Cooperative LINE: Has new line LSC, site ok. Previous port site with 1 inch incision and packing, and has bloody drainage : Saxena in place, with sediment Assessment & Plan Remarks IMPRESSION Sepsis, with shock has MSSA due to port infection - S/P removal port 12/02 - now with shock Respiratory failure, has L base infiltrate, and GNR in sputum (+) UC with Staph aureus, due to current bacteremia Recurrent squamous cell CA Esophageal CA Lethargy and SOB due to sepsis - has acidosis Renal insufficiency, due to sepsis and shock, better RECOMMENDATION Continue IV Cefepime until sputum C/S finalized Follow C/S and adjust Abx He will need 6 weeks IV Abx from date of port removal for MSSA sepsis Follow temps Monitor progress D/W Dr Delarosa ([facility]) D/W Carola Dick MD Dec 04, 2016 10:02
[2016-12-04] MEDS: MORPHINE SULFATE 4 MG/ML INJ IV PUSH PRN ×3 (10:56→18:46)
--- NOTE | 2016-12-04 10:57 | HHI.CCPN ---
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 He was hypotensive, febrile up to 101 and received IV fluid resuscitation with improvement in his blood pressure. EKG showed ST-T wave changes, and troponin was elevated and peaked at 17.1. The patient has been evaluated by cardiology for NSTEMI. He underwent PCI with bare metal stent to LCx by Dr. Krause on 11/30/16. The patient had a CT of the abdomen and pelvis on admission which showed marked soft tissue thickening in the distal esophagus concerning for esophageal cancer. The patient was also noted to have liver cirrhosis and mild splenomegaly. Patient has a history of alcohol intake but according to the girlfriend has not had alcoholic drinks for several months. CTA no evidence of pulmonary embolism or pneumonia. Critical care was consulted 12/01 for altered mentation, persistent fever, MSSA bacteremia and worsening sepsis. Apparently patient was agitated overnight requiring restraints. He also sustained a fall when he tried to climb out of the bed. CT of the head was negative except for a possible artifact left temporal region. An MRI which was done today came back negative. On my evaluation the ICU patient was very lethargic and tachypneic breathing approximately 35-40. ABG showed respiratory alkalosis. His altered mentation is most likely secondary to severe sepsis, and possible alcohol withdrawal. Blood cultures 08/19 growing MSSA, lactic acid 3.6. SUBJ 12/02: Patient found to be tachypneic today, and in severe respiratory distress. His stat breathing treatment and IV Solu-Medrol did not improve respiratory status. Patient was emergently intubated and placed on mechanical ventilation for respiratory extremis. (Unable to visualize cords with direct laryngoscopy. With Glidescope #4 blade Grade 2 view, easy intubation). I'm told by GI that patient had workup for esophageal mass as outpatient which invasive adenocarcinoma of distal esophagus 12/03: Remains critically ill in septic shock on 2 pressors, but trending in the right direction. Levophed down from 20 mcg/min to 10 mcg/m today. Fever trending down after removal of the Fozosy-l-Tzrj. Possible was expressed from about 1 inch superior to the [id number]-t-Rogp along the track of the catheter, Dr. Rich was emergently consulted for removal of the port which he did yesterday. Urine output remains adequate renal function though slightly worsened 12/04: Rapid clinical improvement after the Zcyeyq-m-Mriz was removed. Tip culture and wound culture also with MSSA. Currently remains off all pressors, extubated yesterday. Oriented to person and somewhat to place. CXR showing left lower lobe airspace disease, GNR in sputum Objective Vital Signs Date Time Temp Pulse Resp B/P Pulse Ox O2 Delivery O2 Flow Rate FiO2 12/04/16 06:31 94 Simple Mask 10.00 12/04/16 06:00 90 12/04/16 04:00 98.2 16 110/65 12/03/16 09:17 40 Intake and Output 12/03/16 12/03/16 12/04/16 08:00 16:00 00:00 Intake Total 2162 ml 1438 ml 215 ml Output Total 450 ml 1500 ml 2000 ml Balance 1712 ml -62 ml -1785 ml Result Diagram: 12/04/16 0422 12/04/16 0422 Other Results Microbiology Date/Time Procedure Status Source Growth 12/01/16 17:00 Urine Culture - Final Complete Urine Catheterized Urine Staphylococcus Aureus Laboratory Tests Test 12/03/16 11:03 Blood Gas Puncture Site ART LINE Blood Gas Patient Temperature 98.6 Blood Gas HCO3 24 mmol/L (22-26) Blood Gas Base Excess 0.4 mmol/L (-2-2) Blood Gas Oxygen Saturation 95 % (90-100) Arterial Blood pH 7.48 (7.380-7.420) Arterial Blood Partial 32 mmHg (38-42) Pressure CO2 Arterial Blood Partial 90 mmHg Pressure O2 (61-120) Arterial Blood Oxygen Content 11.8 Vol % (12.0-20.0) Arterial Blood 1.6 % (0-4) Carboxyhemoglobin Arterial Blood Methemoglobin 1.1 % (0-2) Blood Gas Hemoglobin 8.8 G/DL (12.0-16.0) Oxygen Delivery Device VENTILATOR Blood Gas Ventilator Setting [id number] Blood Gas Inspired Oxygen 40 % Imaging CT of the brain shows low attenuation left temporal lobe compatible rule out artifact versus infarct Objective Remarks GENERAL: Critically ill 61-year-old male who in now on O2 by simple mask 10 L SKIN: Warm and dry. About 3 mL pus expressed from site about 1 inch above right now removed [id number] HEAD: Normocephalic. EYES: No scleral icterus. No injection or drainage. ENT: Well healed surgical scars from L parotid resection, and neck dissection NECK: Supple, trachea midline. No JVD or lymphadenopathy. CARDIOVASCULAR: S1-S2 normal, no murmurs, gallops, or rubs. RESPIRATORY: Breath sounds equal bilaterally, but diminished at the bases. No accessory muscle use. GASTROINTESTINAL: Abdomen soft, no guarding nondistended. MUSCULOSKELETAL: Right groin catheterization site without hematoma BACK: Nontender without obvious deformity. No CVA tenderness. NEURO: Alert awake oriented to person and somewhat to place. Moves all extremities no focal deficits Urinary Catheter: Yes Assessment to: Continue Vascular Central Line Catheter: Yes Assessment to: Continue A/P Assessment and Plan NEURO: Acute metabolic encephalopathy-improving Possible alcohol withdrawal - Low dose Morphine for pain control - DC CIWA protocol to avoid excessive sedation - Encephalopathy most likely secondary to severe sepsis - Watch for alcohol withdrawal - Continue Thiamine, MVI RESP: Acute hypoxemic respiratory failure Acute COPD exacerbation Anterior airway Tobacco abuse - Emergently intubated and placed on mechanical ventilation 12/02/16, extubated successfully 12/03/16 - (Unable to visualize cords with direct laryngoscopy. With GlideScope #4 blade Grade 2 view, easy intubation) - DuoNeb every 4 hours and when necessary - IV Solu-Medrol 60 q8 hr for COPD exacerbation - Broad spectrum ABX CV: Septic shock-resolved Lactic acidemia NSTEMI - Currently remains off Levophed and vasopressin - Status post aggressive fluid resuscitation now fluid positive - Repeat Bumex 2 mg IV 1 with potassium replacement - s/p PCI to LCx by Dr. Krause on 11/30/16 - Continue ASA/Plavix/stain/Brilinta - Beta blockers held due to hypotension - Discontinue all IV maintenance fluids - Trend lactic acid - 2-D echo no veg, EF 50-55% GI: Invasive adenocarcinoma of the esophagus Liver cirrhosis - Dobhoff placed 12/02, cleared by speech for liquid diet. DC Dobbhoff - GI following- has biopsy proven invasive adenoca of esophagus - IV Protonix : Acute kidney failure/ATN - Monitor renal function closely. Saxena catheter. - Bumex 2 mg 1 today for fluid overload, Bumex given yesterday also ID: Septic shock-resolved MSSA bacteremia [id number] infection - Rapid clinical improvement after Zvipyb-u-Kowf was removed remains off all pressors - Catheter tip culture blood culture and wound culture also positive for MSSA - Sputum culture with GNR - Continue cefepime to cover for GNR and MSSA - Infectious disease consulted by primary. 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 Bell is following - Status post surgical resection for L parotid SCC. ENDO: Hypokalemia Diabetes Hypothyroidism - Electrolyte replacement per protocol - SSI - Continue thyroid supplementation PROPH: - Bilateral lower extremity SCDs. - Lovenox/Protonix LINES: - Left subclavian central line, right axillary arterial line placed 12/02/16 Level 3 PT/OT Critically male who, is improving but iss immunocompromised due to SCC of L parotid gland, esophageal cancer, now s/p NSTEMI, with sepsis. Bean Delarosa MD Dec 04, 2016 10:57
[2016-12-04 11:06] LABS: BLOOD GAS BASE EXCESS 5.1 mmol/L (-2-2); BLOOD GAS CARBOXYHEMOGLOBIN 1.7 % (0-4); BLOOD GAS HCO3 29 mmol/L (22-26); BLOOD GAS O2 HGB SATURATION 91 % (90-100); BLOOD GAS OXYGEN CONTENT 11.2 Vol % (12.0-20.0); BLOOD GAS PCO2 37 mmHg (38-42); BLOOD GAS PO2 67 mmHg (61-120); BLOOD GAS TOTAL HGB 8.7 G/DL (12.0-16.0); CRITICAL VALUE NO; OXYGEN DEVICE NASAL CANNULA; TEMP CORR TO 98.6
[2016-12-04 11:07] LABS: DRAW SITE RT RADIAL; LITER FLOW 6 L/M; NUMBER OF ARTERIAL PUNCTURES 2; STAT NO; ULNAR PULSE Y
--- NOTE | 2016-12-04 17:06 | HHI.GIFU ---
Subjective Remarks Extubated yesterday. Pt extremely lethargic, but does follow commands and answers questions appropriately. No n/v. He does c/o generalized pain. Objective Vitals I&O Vital Signs Date Time Temp Pulse Resp B/P Pulse Ox O2 Delivery O2 Flow Rate FiO2 12/04/16 16:01 90 20 140/57 90 12/04/16 16:00 97.1 90 21 92 12/04/16 15:30 97 21 122/63 85 12/04/16 15:00 99 20 126/68 91 12/04/16 14:30 89 15 103/60 92 12/04/16 14:00 89 15 101/56 92 12/04/16 13:36 90 17 108/59 12/04/16 13:00 93 16 120/63 12/04/16 12:30 87 15 108/62 90 12/04/16 12:00 98.4 92 15 110/61 74 12/04/16 11:30 88 15 107/61 92 12/04/16 11:00 88 14 110/62 92 12/04/16 10:30 92 13 113/65 92 12/04/16 10:00 90 11 111/71 92 12/04/16 09:30 86 12 119/67 96 12/04/16 09:00 83 16 110/67 95 12/04/16 08:00 98.1 89 13 113/73 92 12/04/16 06:31 94 Simple Mask 10.00 12/04/16 06:00 90 12/04/16 04:00 98.2 90 16 110/65 92 12/04/16 04:00 90 12/04/16 02:00 81 12/04/16 00:00 90 12/04/16 00:00 98.2 90 11 115/63 93 12/03/16 22:00 91 12/03/16 21:08 93 Nasal Cannula 5.00 12/03/16 20:00 102 12/03/16 20:00 97.9 92 13 101/61 94 Arterial Line 12/03/16 18:00 103 I/O 12/03/16 12/03/16 12/03/16 12/04/16 12/04/16 12/04/16 07:00 15:00 23:00 07:00 15:00 23:00 Intake Total 2162 ml 1438 ml 215 ml 420 ml 1440 ml Output Total 450 ml 1500 ml 2000 ml 775 ml 2350 ml Balance 1712 ml -62 ml -1785 ml -355 ml -910 ml Intake Oral 600 ml IV Total 2162 ml 1438 ml 215 ml 420 ml 840 ml Output Urine Total 450 ml 1500 ml 2000 ml 775 ml 2350 ml # Bowel Movements 1 0 Laboratory Laboratory Tests Test 12/04/16 12/04/16 04:22 11:00 White Blood Count 7.1 Red Blood Count 2.98 Hemoglobin 8.1 Hematocrit 24.9 Mean Corpuscular Volume 83.3 Mean Corpuscular Hemoglobin 27.2 Mean Corpuscular Hemoglobin 32.7 Concent Red Cell Distribution Width 15.9 Platelet Count 125 Mean Platelet Volume 9.2 Neutrophils (%) (Auto) 89.9 Lymphocytes (%) (Auto) 5.2 Monocytes (%) (Auto) 4.7 Eosinophils (%) (Auto) 0.0 Basophils (%) (Auto) 0.2 Neutrophils # (Auto) 6.4 Lymphocytes # (Auto) 0.4 Monocytes # (Auto) 0.3 Eosinophils # (Auto) 0.0 Basophils # (Auto) 0.0 CBC Comment DIFF FINAL Differential Comment Haptoglobin 516 Prothrombin Time 12.5 Prothromb Time International 1.1 Ratio Fibrinogen 436 Sodium Level 142 Potassium Level 3.2 Chloride Level 104 Carbon Dioxide Level 29.2 Anion Gap 9 Blood Urea Nitrogen 52 Creatinine 1.09 Estimat Glomerular Filtration 69 Rate Random Glucose 238 Calcium Level 7.3 Protein Corrected Calcium 7.9 Phosphorus Level 1.1 Magnesium Level 2.2 Total Bilirubin 1.2 Aspartate Amino Transf 91 (AST/SGOT) Alanine Aminotransferase 43 (ALT/SGPT) Alkaline Phosphatase 74 Lactate Dehydrogenase 534 Total Protein 5.9 Albumin 2.0 Blood Gas Puncture Site RT RADIAL Blood Gas Patient Temperature 98.6 Blood Gas HCO3 29 Blood Gas Base Excess 5.1 Blood Gas Oxygen Saturation 91 Arterial Blood pH 7.50 Arterial Blood Partial 37 Pressure CO2 Arterial Blood Partial 67 Pressure O2 Arterial Blood Oxygen Content 11.2 Arterial Blood 1.7 Carboxyhemoglobin Arterial Blood Methemoglobin 1.0 Blood Gas Hemoglobin 8.7 Oxygen Delivery Device NASAL CANNULA Blood Gas Liter Flow 6 Date/Time Procedure Status Source Growth 12/04/16 04:22 Aerobic Blood Culture Received Blood Line Pending 12/04/16 04:22 Anaerobic Blood Culture Received Blood Line Pending 12/03/16 03:28 Aerobic Blood Culture - Preliminary Resulted Blood Peripheral NO GROWTH IN 1 DAY 12/03/16 03:28 Anaerobic Blood Culture - Preliminary Resulted Blood Peripheral NO GROWTH IN 1 DAY 12/02/16 20:00 Wound Culture - Final Complete Catheter Tip Other Staphylococcus Aureus 12/02/16 15:25 Gram Stain - Final Complete Wound Chest 12/02/16 15:25 Wound Culture - Final Complete Staphylococcus Aureus 12/02/16 04:31 Aerobic Blood Culture - Final Resulted Blood Peripheral Staphylococcus Aureus 12/02/16 04:31 Anaerobic Blood Culture - Preliminary Resulted Blood Peripheral NO GROWTH IN 2 DAYS 12/01/16 17:00 Urine Culture - Final Complete Urine Catheterized Urine Staphylococcus Aureus Imaging Last Impressions Chest X-Ray 12/04/16 0000 Signed Impressions: Service Date/Time: November 09:21 - CONCLUSION: 1. Continued mild volume loss in the left lower lobe with associated left lower lobe airspace disease. 2. Stable mild positive fluid balance. Escobar Joiner MD Head CT 12/01/16 0000 Signed Impressions: Service Date/Time: Thursday, December 01, 2016 07:59 - CONCLUSION: 1. Questionable area of low attenuation left temporal lobe could be artifact versus less likely infarct. MRI may be warranted based on clinical history. 2. No midline shift or mass effect. 3. No intraparenchymal hemorrhage. Jagjit Tapia MD Brain MRI 12/01/16 0000 Signed Impressions: Service Date/Time: Thursday, December 01, 2016 12:07 - CONCLUSION: Normal examination. Barrett Rodriguez MD Abdomen X-Ray 12/01/16 0000 Signed Impressions: Service Date/Time: Thursday, December 01, 2016 16:48 - CONCLUSION: No evidence of obstruction. Feeding tube tip in the distal stomach. Barrett Rodriguez MD Abdomen/Pelvis CT 11/29/16 [id number] Signed Impressions: Service Date/Time: Wednesday, November 30, 2016 01:35 - CONCLUSION: 1. Markedly abnormal appearance of the distal esophagus consistent with the history of esophageal carcinoma. 2. Atherosclerotic calcifications of the aorta and iliac vessels. 3. Cirrhotic appearance to the liver with a mildly nodular contour present. Erik Simon MD CT Angiography 11/29/16 [id number] Signed Impressions: Service Date/Time: Wednesday, November 30, 2016 01:35 - CONCLUSION: 1. No evidence for pulmonary embolism or pneumonia. 2. Abnormal appearance of the esophagus with and soft tissue consistent with the history of carcinoma. Erik Simon MD Physical Exam HEENT: Normocephalic; atraumatic; no jaundice. CHEST: Resp. even/unlabored, shallow, even. Simple mask. Drsg right upper chest d/i CARDIAC: RRR. ABDOMEN: Soft, very mildly distended, nontender; no hepatosplenomegaly; bowel sounds are present in all four quadrants. EXTREMITIES: No clubbing, cyanosis, or edema. SKIN: Normal; no rash; no jaundice. 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 PET Scan (10/28/16)----> negative examination of the head and neck, findings characteristic of esophageal neoplasm. S/P EGD/Colonoscopy (11/20/16)----> There was a long stricture i the mid esophagus and distal esophagus, multiple biopsies were performed, the mucosa of the stomach appeared normal, duodenal mucosa showed no abnormalities in the entire duodenum, retroflexed views revealed a small hiatal hernia; nine sessile polyps ranging from 4-12 mm in size were found at the cecum, in the ascending colon, descending colon, sigmoid colon, and rectum; polypectomy was performed using snare cautery, moderate diverticulosis was noted in the left colon, retroflexed views revealed internal grade I hemorrhoids, a digital rectal exam was performed and revealed no abnormalities of the anus. Pathology revealed invasive adenocarcinoma- distal esophagus, descending colon polyp and rectosigmoid polyp both benign hyperplastic colonic polyp, no adenomatous change or malignancy is seen. D/W Oncology, plan is for EUS when more stable. ? next week vs. outpatient. - Dysphagia. ST following, full liquids with honey consistency liquids - Constipation. (+) BM. Miralax - Abnormal imaging of the liver on CT scan, consistent with cirrhosis. Abdomen/ Pelvis CT (11/29/16)----> 1. Markedly abnormal appearance of the distal esophagus consistent with the history of esophageal carcinoma. 2. Atherosclerotic calcifications of the aorta and iliac vessels. 3. Cirrhotic appearance to the liver with a mildly nodular contour present. Unclear if he has hx of cirrhosis. There is mention of hx of HCV in EMR, but patient has had undetectable viral load as far back as 2001. Pt is now awake and able to tell me that he has a history of HCV and was successfully treated with Interferon/ribavirin in the past. Iron saturation 4.1%, Ferritin 124, Hepatitis C antibodies (+), viral load pending, TERRIE negative, ASMA < 20.0, AMA neg, Ceruloplasmin 40 and alpha 1 antitrypsin 298. Labs and imaging consistent with cirrhosis. Pt does not currently drink, but states that he was a heavy drinker in the past. T. Bili 1.2, AST 91, ALT 43, Alk Phosph 534. - Sepsis/Bacteremia/UTI. Urine and Bcx with Staphylococcus aureus. S/P removal of infusaport by (12/02). Cefepime - AMS, Acute metabolic encephalopathy. Head CT (12/01/16)-----> 1. Questionable area of low attenuation left temporal lobe could be artifact versus less likely infarct. MRI may be warranted based on clinical history. 2. No midline shift or mass effect. 3. No intraparenchymal hemorrhage. Brain MRI (12/01/16 )----> Normal examination. Lethargic, but awakens and follows commands. - Resp. Failure. Chest X-Ray (12/01/16)----> No acute disease. S/P Extubation on 12/03. On simple mask Solumerol, nebs, - NSTEMI, CAD. S/P left heart catheterization (11/30/16) with Dr. Murillo and this revealed RCA 10% lesion mid segment, mild calcifications left main, LAD with calcification from it's proximal segment to its midsegment however, with no significant obstructive lesions, The LAD is giving off to a diagonal which has a 70% lesion in its ostial segment, left circumflex artery with a proximal clot thrombus, S/P percutaneous coronary intervention/bare metal stent to proximal left circumflex. ASA and Plavix, as well as aggressive optimization of coronary artery disease. 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 S/P mohs surgery by a mid level java developer in September of 2015 and shortly after this, developed a mass near the surgical area. S/P at [facility] with Dr. Valdovinos in June of 2016----> underwent extensive head and neck surgery involving a parotidectomy and radical neck dissection in September of 2016. Because of high risk features of local recurrence with perineural invasion and positive margins, it was recommended that he have concurrent chemoradiation therapy. He was evaluated by Dr. Cross for radiation and seen by Dr. Bell for oncology. PET Scan ()----> negative examination of the head and neck, findings characteristic of esophageal neoplasm. Direct visualization is recommended. - Hx HTN (now hypotensive), Hyperlipidemia, DM. per attending. PLAN: - Full liquids with honey thickened liquids - Cont. PPI - Await HCV viral load - Miralax 17gram po/peg daily - Monitor labs - EUS when more stable, ? next week vs. outpatient - Supportive care - Further recommendations to follow based on results of above - Pt seen and examined by Dr. Kelly and myself and this note is written on her behalf Nga Ramos Dec 04, 2016 17:06
--- NOTE | 2016-12-04 23:44 | PD.ONC.PN ---
Subjective Subjective Remarks weak/somewhat confused sleepy s/p extubation Objective Data Date Time Temp Pulse Resp B/P Pulse Ox O2 Delivery O2 Flow Rate FiO2 12/04/16 22:25 92 Nasal Cannula 6.00 12/04/16 18:51 18 12/04/16 16:01 90 20 140/57 90 12/04/16 16:00 97.1 90 21 92 12/04/16 15:30 97 21 122/63 85 12/04/16 15:00 99 20 126/68 91 12/04/16 14:30 89 15 103/60 92 12/04/16 14:00 89 15 101/56 92 12/04/16 13:36 90 17 108/59 12/04/16 13:00 93 16 120/63 12/04/16 12:30 87 15 108/62 90 12/04/16 12:00 98.4 92 15 110/61 74 12/04/16 11:30 88 15 107/61 92 12/04/16 11:00 88 14 110/62 92 12/04/16 10:30 92 13 113/65 92 12/04/16 10:00 90 11 111/71 92 12/04/16 09:30 86 12 119/67 96 12/04/16 09:00 83 16 110/67 95 12/04/16 08:00 98.1 89 13 113/73 92 12/04/16 06:31 94 Simple Mask 10.00 12/04/16 06:00 90 12/04/16 04:00 98.2 90 16 110/65 92 12/04/16 04:00 90 12/04/16 02:00 81 12/04/16 00:00 90 12/04/16 00:00 98.2 90 11 115/63 93 12/04/16 12/04/16 12/04/16 06:59 14:59 22:59 Intake Total 420 ml 1440 ml 400 ml Output Total 775 ml 2350 ml 2000 ml Balance -355 ml -910 ml -1600 ml Result Diagram: 12/04/162 12/04/165 Laboratory Results Laboratory Tests Test 12/04/16 12/04/16 12/04/16 04:22 11:00 19:15 White Blood Count 7.1 TH/MM3 Red Blood Count 2.98 MIL/MM3 Hemoglobin 8.1 GM/DL Hematocrit 24.9 % Mean Corpuscular Volume 83.3 FL Mean Corpuscular Hemoglobin 27.2 PG Mean Corpuscular Hemoglobin 32.7 % Concent Red Cell Distribution Width 15.9 % Platelet Count 125 TH/MM3 Mean Platelet Volume 9.2 FL Neutrophils (%) (Auto) 89.9 % Lymphocytes (%) (Auto) 5.2 % Monocytes (%) (Auto) 4.7 % Eosinophils (%) (Auto) 0.0 % Basophils (%) (Auto) 0.2 % Neutrophils # (Auto) 6.4 TH/MM3 Lymphocytes # (Auto) 0.4 TH/MM3 Monocytes # (Auto) 0.3 TH/MM3 Eosinophils # (Auto) 0.0 TH/MM3 Basophils # (Auto) 0.0 TH/MM3 CBC Comment DIFF FINAL Differential Comment Haptoglobin 516 MG/DL Prothrombin Time 12.5 SEC Prothromb Time International 1.1 RATIO Ratio Fibrinogen 436 mg/dL Sodium Level 142 MEQ/L Potassium Level 3.2 MEQ/L 2.8 MEQ/L Chloride Level 104 MEQ/L Carbon Dioxide Level 29.2 MEQ/L Anion Gap 9 MEQ/L Blood Urea Nitrogen 52 MG/DL Creatinine 1.09 MG/DL Estimat Glomerular Filtration 69 ML/MIN Rate Random Glucose 238 MG/DL Calcium Level 7.3 MG/DL Protein Corrected Calcium 7.9 MG/DL Phosphorus Level 1.1 MG/DL Magnesium Level 2.2 MG/DL Total Bilirubin 1.2 MG/DL Aspartate Amino Transf 91 U/L (AST/SGOT) Alanine Aminotransferase 43 U/L (ALT/SGPT) Alkaline Phosphatase 74 U/L Lactate Dehydrogenase 534 U/L Total Protein 5.9 GM/DL Albumin 2.0 GM/DL Blood Gas Puncture Site RT RADIAL Blood Gas Patient Temperature 98.6 Blood Gas HCO3 29 mmol/L Blood Gas Base Excess 5.1 mmol/L Blood Gas Oxygen Saturation 91 % Arterial Blood pH 7.50 Arterial Blood Partial 37 mmHg Pressure CO2 Arterial Blood Partial 67 mmHg Pressure O2 Arterial Blood Oxygen Content 11.2 Vol % Arterial Blood 1.7 % Carboxyhemoglobin Arterial Blood Methemoglobin 1.0 % Blood Gas Hemoglobin 8.7 G/DL Oxygen Delivery Device NASAL CANNULA Blood Gas Liter Flow 6 L/M Culture Results Microbiology Date/Time Procedure Status Source Growth 12/02/16 04:31 Aerobic Blood Culture - Final Resulted Blood Peripheral Staphylococcus Aureus 12/02/16 04:31 Anaerobic Blood Culture - Preliminary Resulted Blood Peripheral NO GROWTH IN 2 DAYS 12/02/16 08:10 Gram Stain - Final Resulted Sputum Endotracheal 12/02/16 08:10 Sputum Culture - Preliminary Resulted Gram Negative Nilay 12/02/16 15:25 Gram Stain - Final Complete Wound Chest 12/02/16 15:25 Wound Culture - Final Complete Staphylococcus Aureus 12/02/16 20:00 Wound Culture - Final Complete Catheter Tip Other Staphylococcus Aureus 12/03/16 03:28 Aerobic Blood Culture - Preliminary Resulted Blood Peripheral NO GROWTH IN 1 DAY 12/03/16 03:28 Anaerobic Blood Culture - Preliminary Resulted Blood Peripheral NO GROWTH IN 1 DAY 12/04/16 04:22 Aerobic Blood Culture Received Blood Line Pending 12/04/16 04:22 Anaerobic Blood Culture Received Blood Line Pending Imaging Studies Last 24 hours Impressions Chest X-Ray 12/04/16 0000 Signed Impressions: Service Date/Time: November 09:21 - CONCLUSION: 1. Continued mild volume loss in the left lower lobe with associated left lower lobe airspace disease. 2. Stable mild positive fluid balance. Escobar Joiner MD Administered Medications Medications (Trade) Dose Ordered Sig/Geovanny Route PRN Reason Start Time Stop Time Status Last Admin Dose Admin Sodium Chloride (NS Flush) 2 ml UNSCH PRN IV FLUSH FLUSH AFTER USING IV ACCESS 11/30/16 02:45 12/01/16 21:53 Sodium Chloride (NS Flush) 2 ml BID IV FLUSH 11/30/16 09:00 12/04/16 21:15 Senna/Docusate Sodium (Rere-Colace) 1 tab BID PO 11/30/16 09:00 12/04/16 21:15 Pantoprazole Sodium (Protonix Inj) 40 mg Q12H IV PUSH 11/30/16 09:00 12/04/16 21:15 Chlorhexidine Gluconate (Chlorhexidine 2% Cloth) 3 pack DAILY@04 TOPICAL 12/01/16 04:00 12/05/16 04:01 12/04/16 04:00 Acetaminophen (Tylenol) 325 mg Q4H PRN PO PAIN SCALE 1 TO 2 11/30/16 13:45 12/01/16 17:36 Aspirin (Aspirin Chew) 81 mg DAILY PO 11/30/16 13:45 12/04/16 09:15 Clopidogrel Bisulfate (Plavix) 75 mg DAILY PO 12/01/16 09:00 12/04/16 09:15 Metoprolol Tartrate (Lopressor) 12.5 mg BID PO 11/30/16 21:00 Hold 12/01/16 09:51 Atorvastatin Calcium (Lipitor) 10 mg HS PO 11/30/16 21:00 Hold 12/02/16 21:22 Sodium Chloride (NS Flush) 5 ml Q21D IV FLUSH 11/30/16 18:00 11/30/16 18:00 Heparin Sodium (Porcine) 500 units 500 units Q21D IV FLUSH 11/30/16 18:00 11/30/16 18:04 Cefazolin Sodium/ Dextrose (Ancef 2 Gm Premix) 50 ml @ 100 mls/hr Q8H IV 12/01/16 18:00 Hold 12/03/16 08:27 Acetaminophen (Tylenol 650 Mg/ 20 ml Liq) 650 mg Q6H PRN PO FEVER 12/01/16 17:30 12/02/16 01:07 Methylprednisolone Sodium Succinate (SoluMEDROL INJ) 60 mg Q8HR IV PUSH 12/02/16 14:00 12/04/16 21:16 Enoxaparin Sodium (Lovenox Inj) 40 mg Q24H SQ 12/02/16 09:00 12/04/16 09:14 Chlorhexidine Gluconate 15 ml 15 ml BID@08,20 MT 12/02/16 08:00 12/04/16 21:15 Multivitamins 10 ml/Thiamine HCl 100 mg/Folic Acid 1 mg/Sodium Chloride 511.2 ml @ 125 mls/hr DAILY IV 12/02/16 09:00 12/04/16 09:21 Vasopressin 40 units/Dextrose 100 ml @ 4.5 mls/hr [id number] IV 12/02/16 11:04 12/03/16 04:17 Norepinephrine Bitartrate (Levophed-Dextrose Drip) 250 ml @ 0 mls/hr TITRATE IV 12/02/16 15:15 12/03/16 04:05 Insulin Aspart (NovoLOG SUPPLEMENTAL SCALE) 1 Q4HR SQ 12/03/16 00:00 12/04/16 21:18 Polyethylene Glycol 17 gm 17 gm DAILY PO 12/04/16 09:00 12/04/16 09:15 Cefepime HCl/ Sodium Chloride (Maxipime Inj/NS Inj) 100 ml @ 200 mls/hr Q8H IV 12/03/16 17:00 12/04/16 16:57 Morphine Sulfate 2 mg 2 mg Q3H PRN IV PUSH pain 5-10 12/04/16 09:30 12/04/16 18:46 Potassium Chloride (KCl 40 Meq Premix Inj) 100 ml @ 50 mls/hr Q2H PRN IV For Potassium 2.8 - 3.2 mEq/L 12/04/16 09:30 12/04/16 21:17 Objective Remarks GENERAL: acutely ill NECK: Supple, trachea midline. No JVD or lymphadenopathy. LYMPHATIC: No adenopathy. CARDIOVASCULAR: Regular rate and rhythm without murmurs. RESPIRATORY: Breath sounds equal bilaterally. No accessory muscle use. GASTROINTESTINAL: Abdomen soft, non-tender, nondistended. EXTREMITIES: No cyanosis, or edema. Assessment/Plan Problem List: (1) NSTEMI (non-ST elevated myocardial infarction) Status: Acute Plan: --Elevated troponin and ST-segment changes consistent with acute IL. --cardiology following --plavix and ASA (2) SCC (squamous cell carcinoma) Status: Acute Plan: --has a head and neck, lung malignancy which was locally advanced. --received definitive treatment with surgery. Post surgery he had positive margins and some poor risk features and he was about to get concurrent chemotherapy and radiation and adjuvantly to achieve local control of the disease--waiting to receive concurrent chemo/XRT until we have biopsied the esophageal mass --PET scan to stage his disease prior to treatment showed an esophageal mass which could be a primary esophageal cancer. --If he is found to have esophageal cancer, the preference would be to treat the esophageal cancer first with chemotherapy and radiation. (3) Esophageal mass Status: Acute Plan: --concerning for primary esophageal cancer. --patient had OP EGD with biopsy, pathology showed adenocarcinoma. will need EUS for staging when available. --EGD/Colonoscopy, 11/20/16--showed long stricture in the mid esophagus and distal esophagus, multiple biopsies were performed Pathology revealed invasive adenocarcinoma- distal esophagus (4) Normocytic anemia Status: Acute Plan: --transfuse packed red blood cells if his hemoglobin drops below 8. --stool hemoccult. --iron deficient --will need IV iron. (5) Sepsis Status: Acute Plan: --BC + GPC, S. 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 1. Acute thrombocytopenia due to sepsis/DIC - PLT count trending up to 125 - check Coags/Haptoglobin/Fibrinogen daily 2. Anemia 2/2 to acute illness - Hb stable today - no blood products today 3. Sepsis/respiratory failure/hypotension--per primary team 4. 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 Esophageal cancer - Would prefer EUS when stable prior to discharge to expedite staging. - Outpatient plans for treatment . Problem Qualifiers (1) Sepsis: Qualified Code: A41.9 - Sepsis, due to unspecified organism Brant Bell MD Dec 04, 2016 23:44
[2016-12-05] VITALS (29 sets, daily range): BP systolic 102–135; BP diastolic 60–73; PULSE 75–93; RESP 11–40; TEMP 97.8–98.4; O2SAT 8–94
[2016-12-05] MEDS: CEFEPIME INJ 2,000 MG in SODIUM CHLORIDE 0.9% INJ 100 ML IV SCH ×3 (00:50→17:16)
[2016-12-05] MEDS: INSULIN ASPART SUPPLEMENTAL SCALE SQ SCH ×6 (00:52→22:08)
[2016-12-05] MEDS: MORPHINE SULFATE 4 MG/ML INJ IV PUSH PRN ×4 (01:00→22:06)
[2016-12-05] MEDS: CHLORHEXIDINE GLUCONATE 2 % 1 PACK (2 CLOTHS)(taper/protocol) TOPICAL SCH (04:00)
[2016-12-05] MEDS: RESP: ALBUTEROL 2.5 MG/IPRATROPIUM 0.5 MG NEB (SCH) NEB ×3 (04:08→15:58)
[2016-12-05] MEDS: methylPREDNISolone SOD SUCC 125 MG/2 ML VIAL IV PUSH SCH ×3 (05:17→22:03)
--- NOTE | 2016-12-05 05:25 | RADRPT ---
EXAM DATE/TIME: 12/05/2016 03:30 [place] COMPARISON: CHEST SINGLE AP, December 04, 2016, 9:21. INDICATIONS : Evaluate respiratory disease. MEDICAL HISTORY : Hypertension. Myocardial infarction. Hepatitis C. COPD, GERD, Coronary artery disease, Cirrhosis SURGICAL HISTORY : Appendectomy. ENCOUNTER: Subsequent ACUITY: 1 week PAIN SCORE: Non-responsive. LOCATION: Bilateral chest FINDINGS: The cardiac silhouette is enlarged in transverse diameter. There is left lower lobe atelectasis versu s pneumonia. A left sided subclavian vein catheter is in place without pneumothorax with its tip in t he superior vena cava. There is prominence of the central pulmonary vasculature with indistinct vascu lar margins compatible with vascular congestion but no evidence of overt failure. CONCLUSION: 1. Cardiomegaly and findings of vascular congestion without overt failure. There has been no signific ant change when compared to the prior exam. Bobby Matias MD on December 05, 2016 at 5:24 Board Certified Radiologist. This report was verified electronically.
[2016-12-05] MEDS: VASOPRESSIN INJ 40 UNITS in DEXTROSE 5% IN WATER 100ML INJ 98 ML IV SCH ×2 (05:26)
[2016-12-05 05:38] LABS: AUTOMATED NEUTROPHIL # 5.6 TH/MM3 (1.8-7.7); BASOPHIL % 0.1 % (0.0-2.0); HEMATOCRIT 25.5 % (39.0-51.0); HEMO FLAGS DIFF FINAL; LYMPHOCYTE # 0.4 TH/MM3 (1.0-4.8); MEAN CORPUSCULAR HEMOGLOBIN 27.4 PG (27.0-34.0); MEAN CORPUSCULAR HGB CONC 32.7 % (32.0-36.0); MONO % 5.5 % (0.0-8.0); NEUT % 88.4 % (16.0-70.0); PLATELET COUNT 136 TH/MM3 (150-450); RED BLOOD COUNT 3.04 MIL/MM3 (4.50-5.90); RED CELL DISTRIBUTION WIDTH 16.3 % (11.6-17.2); WHITE BLOOD COUNT 6.3 TH/MM3 (4.0-11.0)
[2016-12-05 06:21] LABS: BICARBONATE 32.9 MEQ/L (21.0-32.0); MAGNESIUM 2.1 MG/DL (1.5-2.5); POTASSIUM 3.6 MEQ/L (3.5-5.1)
[2016-12-05 07:52] LABS: HCV RNA PCR IU/ML LESS THAN 15 IU/mL (()); HCV RNA PCR LOGIU/ML LESS THAN 1.18 (())
[2016-12-05] MEDS: CHLORHEXIDINE 0.12% (ORAL KIT) 15 ML CUP MT SCH ×2 (08:00→19:53)
--- NOTE | 2016-12-05 08:57 | HHI.CCPN ---
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 He was hypotensive, febrile up to 101 and received IV fluid resuscitation with improvement in his blood pressure. EKG showed ST-T wave changes, and troponin was elevated and peaked at 17.1. The patient has been evaluated by cardiology for NSTEMI. He underwent PCI with bare metal stent to LCx by Dr. Krause on 11/30/16. The patient had a CT of the abdomen and pelvis on admission which showed marked soft tissue thickening in the distal esophagus concerning for esophageal cancer. The patient was also noted to have liver cirrhosis and mild splenomegaly. Patient has a history of alcohol intake but according to the girlfriend has not had alcoholic drinks for several months. CTA no evidence of pulmonary embolism or pneumonia. Critical care was consulted 12/01 for altered mentation, persistent fever, MSSA bacteremia and worsening sepsis. Apparently patient was agitated overnight requiring restraints. He also sustained a fall when he tried to climb out of the bed. CT of the head was negative except for a possible artifact left temporal region. An MRI which was done today came back negative. On my evaluation the ICU patient was very lethargic and tachypneic breathing approximately 35-40. ABG showed respiratory alkalosis. His altered mentation is most likely secondary to severe sepsis, and possible alcohol withdrawal. Blood cultures 08/19 growing MSSA, lactic acid 3.6. SUBJ 12/02: Patient found to be tachypneic today, and in severe respiratory distress. His stat breathing treatment and IV Solu-Medrol did not improve respiratory status. Patient was emergently intubated and placed on mechanical ventilation for respiratory extremis. (Unable to visualize cords with direct laryngoscopy. With Glidescope #4 blade Grade 2 view, easy intubation). I'm told by GI that patient had workup for esophageal mass as outpatient which invasive adenocarcinoma of distal esophagus 12/03: Remains critically ill in septic shock on 2 pressors, but trending in the right direction. Levophed down from 20 mcg/min to 10 mcg/m today. Fever trending down after removal of the Sjirvz-a-Nzuo. Possible was expressed from about 1 inch superior to the Mwhvkw-h-Hhds along the track of the catheter, Dr. Rich was emergently consulted for removal of the port which he did yesterday. Urine output remains adequate renal function though slightly worsened 12/04: Rapid clinical improvement after the Ejicwa-h-Snze was removed. Tip culture and wound culture also with MSSA. Currently remains off all pressors, extubated yesterday. Oriented to person and somewhat to place. CXR showing left lower lobe airspace disease, GNR in sputum Objective Vital Signs Date Time Temp Pulse Resp B/P Pulse Ox O2 Delivery O2 Flow Rate FiO2 12/05/16 08:16 8 Simple Mask 8.00 12/05/16 06:00 78 12/05/16 04:00 98.0 19 117/69 12/03/16 09:17 40 Intake and Output 12/04/16 12/04/16 12/04/16 07:59 15:59 23:59 Intake Total 420 ml 1440 ml 862 ml Output Total 775 ml 2350 ml 2950 ml Balance -355 ml -910 ml -2088 ml Result Diagram: 12/05/16 0500 12/05/16 0500 Other Results Microbiology Date/Time Procedure Status Source Growth 12/02/16 15:25 Gram Stain - Final Complete Wound Chest 12/02/16 15:25 Wound Culture - Final Complete Staphylococcus Aureus 12/02/16 20:00 Wound Culture - Final Complete Catheter Tip Other Staphylococcus Aureus Laboratory Tests Test 12/04/16 11:00 Blood Gas Puncture Site RT RADIAL Blood Gas Patient Temperature 98.6 Blood Gas HCO3 29 mmol/L (22-26) Blood Gas Base Excess 5.1 mmol/L (-2-2) Blood Gas Oxygen Saturation 91 % (90-100) Arterial Blood pH 7.50 (7.380-7.420) Arterial Blood Partial 37 mmHg (38-42) Pressure CO2 Arterial Blood Partial 67 mmHg Pressure O2 (61-120) Arterial Blood Oxygen Content 11.2 Vol % (12.0-20.0) Arterial Blood 1.7 % (0-4) Carboxyhemoglobin Arterial Blood Methemoglobin 1.0 % (0-2) Blood Gas Hemoglobin 8.7 G/DL (12.0-16.0) Oxygen Delivery Device NASAL CANNULA Blood Gas Liter Flow 6 L/M Imaging CT of the brain shows low attenuation left temporal lobe compatible rule out artifact versus infarct Objective Remarks GENERAL: Critically ill 61-year-old male who in now on O2 by simple mask 10 L SKIN: Warm and dry. About 3 mL pus expressed from site about 1 inch above right now removed Luheud-h-Uthx HEAD: Normocephalic. EYES: No scleral icterus. No injection or drainage. ENT: Well healed surgical scars from L parotid resection, and neck dissection NECK: Supple, trachea midline. No JVD or lymphadenopathy. CARDIOVASCULAR: S1-S2 normal, no murmurs, gallops, or rubs. RESPIRATORY: Breath sounds equal bilaterally, but diminished at the bases. No accessory muscle use. GASTROINTESTINAL: Abdomen soft, no guarding nondistended. MUSCULOSKELETAL: Right groin catheterization site without hematoma BACK: Nontender without obvious deformity. No CVA tenderness. NEURO: Alert awake oriented to person and somewhat to place. Moves all extremities no focal deficits A/P Assessment and Plan NEURO: Acute metabolic encephalopathy-improving Possible alcohol withdrawal - Morphine for pain control - Encephalopathy most likely secondary to severe sepsis - Continue Thiamine, MVI, folic acid RESP: Acute hypoxemic respiratory failure Acute COPD exacerbation Anterior airway Tobacco abuse - Emergently intubated and placed on mechanical ventilation 12/02/16, extubated successfully 12/03/16 - Wean down oxygen as michael keep sat >92% - DuoNeb every 4 hours and when necessary - Decrease IV Solu-Medrol 40 q12 hr for COPD exacerbation - Broad spectrum ABX CV: Septic shock-resolved Lactic acidemia- Cleared NSTEMI - Monitor HR and BP keep MAP>65mmHg - Status post aggressive fluid resuscitation - s/p PCI to LCx by Dr. Krause on 11/30/16 - Continue ASA/Plavix/stain/Brilinta - 2-D echo no veg, EF 50-55% GI: Invasive adenocarcinoma of the esophagus Liver cirrhosis - On Full liquid diet - GI following- has biopsy proven invasive adenoca of esophagus - IV Protonix : Acute kidney failure/ATN - Monitor renal function , I/O's, electrolytes replacement per protocol. ID: Septic shock-resolved MSSA bacteremia Mpvfcp-r-Wkjp infection - s/p removal of Jfqqsd-m-Hrgp - Catheter tip culture blood culture and wound culture also positive for MSSA - Sputum culture with GNR 12/02 - Continue abx per ID (Cefepime) will need abx for 6 weeks from port removal. HEME: Squamous cell carcinoma of the left parotid gland Esophageal adeno ca - Oncology Dr. Bell is following - Status post surgical resection for L parotid SCC. ENDO: Diabetes Hypothyroidism - Electrolyte replacement per protocol - SSI - Continue thyroid supplementation PROPH: - Bilateral lower extremity SCDs. - Lovenox/Protonix LINES: - Left subclavian central line, right axillary arterial line placed 12/02/16 Level 3 PT/OT Dixie Navarrete MD Dec 05, 2016 08:57
[2016-12-05] MEDS: POLYETHYLENE GLYCOL 17 GM PKG PO SCH (09:00)
[2016-12-05] MEDS ORDERED: CALCIUM GLUCONATE INJ 1 GM in SODIUM CHLORIDE 0.9% INJ 100 ML IV ONE (09:30)
--- NOTE | 2016-12-05 10:11 | HHI.IDPN ---
Subjective Subjective Remarks Patient is a 61-year-old male, currently lethargic, and unable to give any history. History has been obtained from the chart. 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 It was reportedly malignant as well. He presented to the hospital complaining of generalized weakness, abdominal pain and progressive swallowing difficulty over the last 3 weeks. Evaluation in the emergency room revealed abnormal EKG, and he underwent cardiac catheterization. He had non-ST AR, and had revascularization with stent placement of his left circumflex artery. Patient is spiked to 103, and there were 2 blood cultures done yesterday that are now reported as growing staph aureus. Patient currently has a Saxena catheter. There is a lot of sediment in his urine, and his urine culture is also showing staph aureus. CT of the abdomen and pelvis did not show any abnormality except the soft tissue mass in the esophagus. He had atherosclerosis of his vasculature. There was also evidence of possible liver cirrhosis. Patient is being evaluated for chemotherapy and radiation, but he has not been started. He had an Uulnzh-e-Gnvj placement on November 12 on his right upper chest. Notes reviewed Doing fairly well post extubation On FM currently sats good Good diuresis Last (+) BC 12/02 Port removed 12/02 Still no ID on GNR CXR 12/05, stable Antibiotics Cefepime Lines Port - removed 12/02 LSC TLC - 12/02 Past Medical History Hypertension Hyperlipidemia CAD Diabetes 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 and he had good margins Recurrent squamous cell carcinoma on the left face, with involvement of the parotid gland, status post surgery at [facility] Recently found to have esophageal mass Past Surgical History Appendectomy Liver Biopsy Resection of a squamous cell carcinoma on the left cheek in 2011 Extensive surgery on the left face and neck for recurrent squamous cell carcinoma Port Placement November 12, 2016 Allergies: Coded Allergies: Penicillin (Verified Allergy, Mild, Hives, 11/12/16) Objective . Vital Signs Date Time Temp Pulse Resp B/P Pulse Ox O2 Delivery O2 Flow Rate FiO2 12/05/16 08:16 8 Simple Mask 8.00 12/05/16 06:00 78 12/05/16 04:38 93 Simple Mask 8.00 12/05/16 04:00 98.0 89 19 117/69 88 12/05/16 04:00 89 12/05/16 02:00 80 12/05/16 01:05 18 12/05/16 00:00 75 12/05/16 00:00 97.8 75 11 102/60 90 12/04/16 22:25 92 Nasal Cannula 6.00 12/04/16 22:00 84 12/04/16 20:00 98.0 82 11 126/68 92 12/04/16 20:00 82 12/04/16 16:01 90 20 140/57 90 12/04/16 16:00 97.1 90 21 92 12/04/16 15:30 97 21 122/63 85 12/04/16 15:00 99 20 126/68 91 12/04/16 14:30 89 15 103/60 92 12/04/16 14:00 89 15 101/56 92 12/04/16 13:36 90 17 108/59 12/04/16 13:00 93 16 120/63 12/04/16 12:30 87 15 108/62 90 12/04/16 12:00 98.4 92 15 110/61 74 12/04/16 11:30 88 15 107/61 92 12/04/16 11:00 88 14 110/62 92 12/04/16 10:30 92 13 113/65 92 12/04/16 12/04/16 12/05/16 14:59 22:59 06:59 Intake Total 1440 ml 862 ml 222 ml Output Total 2350 ml 2950 ml 525 ml Balance -910 ml -2088 ml -303 ml Intake Oral 600 ml 400 ml IV Total 840 ml 462 ml 222 ml Output Urine Total 2350 ml 2950 ml 525 ml # Bowel Movements 0 . Laboratory Tests Test 12/04/16 12/05/16 04:22 05:00 White Blood Count 7.1 TH/MM3 6.3 TH/MM3 Red Blood Count 2.98 MIL/MM3 3.04 MIL/MM3 Hemoglobin 8.1 GM/DL 8.3 GM/DL Hematocrit 24.9 % 25.5 % Mean Corpuscular Volume 83.3 FL 84.0 FL Mean Corpuscular Hemoglobin 27.2 PG 27.4 PG Mean Corpuscular Hemoglobin 32.7 % 32.7 % Concent Red Cell Distribution Width 15.9 % 16.3 % Platelet Count 125 TH/MM3 136 TH/MM3 Mean Platelet Volume 9.2 FL 9.0 FL Neutrophils (%) (Auto) 89.9 % 88.4 % Lymphocytes (%) (Auto) 5.2 % 6.0 % Monocytes (%) (Auto) 4.7 % 5.5 % Eosinophils (%) (Auto) 0.0 % 0.0 % Basophils (%) (Auto) 0.2 % 0.1 % Neutrophils # (Auto) 6.4 TH/MM3 5.6 TH/MM3 Lymphocytes # (Auto) 0.4 TH/MM3 0.4 TH/MM3 Monocytes # (Auto) 0.3 TH/MM3 0.3 TH/MM3 Eosinophils # (Auto) 0.0 TH/MM3 0.0 TH/MM3 Basophils # (Auto) 0.0 TH/MM3 0.0 TH/MM3 CBC Comment DIFF FINAL DIFF FINAL Differential Comment Haptoglobin 516 MG/DL Laboratory Tests Test 12/04/16 12/04/16 12/05/16 04:22 19:15 05:00 Sodium Level 142 MEQ/L 146 MEQ/L Potassium Level 3.2 MEQ/L 2.8 MEQ/L 3.6 MEQ/L Chloride Level 104 MEQ/L 106 MEQ/L Carbon Dioxide Level 29.2 MEQ/L 32.9 MEQ/L Anion Gap 9 MEQ/L 7 MEQ/L Blood Urea Nitrogen 52 MG/DL 47 MG/DL Creatinine 1.09 MG/DL 0.99 MG/DL Estimat Glomerular Filtration 69 ML/MIN 77 ML/MIN Rate Random Glucose 238 MG/DL 273 MG/DL Calcium Level 7.3 MG/DL 7.3 MG/DL Protein Corrected Calcium 7.9 MG/DL 8.0 MG/DL Phosphorus Level 1.1 MG/DL 1.2 MG/DL Magnesium Level 2.2 MG/DL 2.1 MG/DL Total Bilirubin 1.2 MG/DL 1.0 MG/DL Aspartate Amino Transf 91 U/L 61 U/L (AST/SGOT) Alanine Aminotransferase 43 U/L 47 U/L (ALT/SGPT) Alkaline Phosphatase 74 U/L 78 U/L Lactate Dehydrogenase 534 U/L Total Protein 5.9 GM/DL 5.8 GM/DL Albumin 2.0 GM/DL 2.1 GM/DL Microbiology Date/Time Procedure Status Source Growth 12/02/16 15:25 Gram Stain - Final Complete Wound Chest 12/02/16 15:25 Wound Culture - Final Complete Staphylococcus Aureus 12/02/16 20:00 Wound Culture - Final Complete Catheter Tip Other Staphylococcus Aureus 12/03/16 03:28 Aerobic Blood Culture - Preliminary Resulted Blood Peripheral NO GROWTH IN 1 DAY 12/03/16 03:28 Anaerobic Blood Culture - Preliminary Resulted Blood Peripheral NO GROWTH IN 1 DAY 12/04/16 04:22 Aerobic Blood Culture Received Blood Line Pending 12/04/16 04:22 Anaerobic Blood Culture Received Blood Line Pending Imaging Chest X-Ray 12/05/16 0600 Signed Impressions: Service Date/Time: Monday, December 05, 2016 03:30 - CONCLUSION: 1. Cardiomegaly and findings of vascular congestion without overt failure. There has been no significant change when compared to the prior exam. Bobby Matias MD Head CT 12/01/16 0000 Signed Impressions: Service Date/Time: Thursday, December 01, 2016 07:59 - CONCLUSION: 1. Questionable area of low attenuation left temporal lobe could be artifact versus less likely infarct. MRI may be warranted based on clinical history. 2. No midline shift or mass effect. 3. No intraparenchymal hemorrhage. Jagjit Tapia MD Brain MRI 12/01/16 0000 Signed Impressions: Service Date/Time: Thursday, December 01, 2016 12:07 - CONCLUSION: Normal examination. Barrett Rodriguez MD Abdomen X-Ray 12/01/16 0000 Signed Impressions: Service Date/Time: Thursday, December 01, 2016 16:48 - CONCLUSION: No evidence of obstruction. Feeding tube tip in the distal stomach. Barrett Rodriguez MD Abdomen/Pelvis CT 11/29/16 2356 Signed Impressions: Service Date/Time: Wednesday, November 30, 2016 01:35 - CONCLUSION: 1. Markedly abnormal appearance of the distal esophagus consistent with the history of esophageal carcinoma. 2. Atherosclerotic calcifications of the aorta and iliac vessels. 3. Cirrhotic appearance to the liver with a mildly nodular contour present. Erik Simon MD CT Angiography 11/29/16 2348 Signed Impressions: Service Date/Time: Wednesday, November 30, 2016 01:35 - CONCLUSION: 1. No evidence for pulmonary embolism or pneumonia. 2. Abnormal appearance of the esophagus with and soft tissue consistent with the history of carcinoma. Erik Simon MD Chest X-Ray 12/03/16 0600 Signed Impressions: Service Date/Time: Saturday, December 03, 2016 04:43 - CONCLUSION: Increasing consolidation in the left lower lung. Bilateral interstitial changes. Niko Wilcox MD Chest X-Ray 12/03/16 0000 Signed Impressions: Service Date/Time: Saturday, December 03, 2016 07:48 - CONCLUSION: 1. Persistent left retrocardiac density and slight interstitial prominence. Jagjit Tapia MD Chest X-Ray 12/02/16 0000 Signed Impressions: Service Date/Time: Friday, December 02, 2016 15:55 - CONCLUSION: Normal examination with endotracheal tube and central lines in good position. Barrett Rodriguez MD Chest X-Ray 12/02/16 0000 Signed Impressions: Service Date/Time: Friday, December 02, 2016 08:24 - CONCLUSION: Mild perihilar vascular congestion. Endotracheal tube is in good position Barrett Rodriguez MD Chest X-Ray 12/02/16 0000 Signed Impressions: Service Date/Time: Friday, December 02, 2016 06:53 - CONCLUSION: Underinflated examination with atelectasis at the lung bases. Given the technique, no acute abnormality or significant interval change is appreciated. Washington Marroquin MD Physical Exam GENERAL: Awake, following commands, NAD, on FM SKIN: Warm and dry. No generalized rash, no ecchymoses. Has embolic lesions in his L big toe no change HEAD: Atraumatic. Normocephalic. No temporal wasting, or tenderness. EYES: [place] conjunctiva. Pupils equal, round and reactive to light. Extraocular movements full and intact. No scleral icterus. No injection or drainage. EARS, NOSE AND THROAT: Nose without bleeding or purulent nasal discharge. No sinus tenderness. Orally intubated NECK: Trachea midline. Supple and not tender, no meningeal signs CARDIOVASCULAR: Regular rate and rhythm. No murmurs, rubs or gallops heard. RESPIRATORY: Coarse BS bilaterally. Incision R upper chest where port was before, with packing and has bloody drainage ABDOMEN: Soft, mildly distended. Mild diffuse tenderness, no guarding. Bowel sounds present and normoactive. No rebound. No organomegaly. EXTREMITIES: No clubbing, cyanosis. Has mild pedal edema. No joint effusion , has good ROM. No calf tenderness. Well perfused and warm. NEUROLOGICAL: Awake and following commands, slow to respond PSYCHIATRIC: Cooperative LINE: Has new line LSC, site ok. Previous port site with 1 inch incision and packing, and has bloody drainage : Saxena in place, with sediment Assessment & Plan Remarks IMPRESSION Sepsis, with shock has MSSA due to port infection - S/P removal port 12/02 - now with shock Respiratory failure, has L base infiltrate, and GNR in sputum (+) UC with Staph aureus, due to current bacteremia Recurrent squamous cell CA Esophageal CA Lethargy and SOB due to sepsis - has acidosis Renal insufficiency, due to sepsis and shock, better RECOMMENDATION Continue IV Cefepime until sputum C/S finalized If GNR sensitive to Levaquin or Bactrim, change Cefepime to appropriate GNR coverage, and then restart IV Ancef for Rx MSSA Follow C/S and adjust Abx He will need 6 weeks IV Abx from date of port removal/last (+) BC for MSSA sepsis Follow temps Monitor respiratory status Monitor progress Carola Nassar MD Dec 05, 2016 10:11
[2016-12-05] MEDS: ENOXAPARIN SODIUM 40 MG/0.4 ML SYRINGE SQ SCH (10:29)
[2016-12-05] MEDS: PANTOPRAZOLE SODIUM 40 MG VIAL IV PUSH SCH ×2 (10:30→22:03)
[2016-12-05] MEDS: DOCUSATE SODIUM 50 MG/SENNA 8.6 MG TAB PO SCH ×2 (10:30→21:00)
[2016-12-05] MEDS: MULTIVITAMIN TAB PO SCH (10:30)
[2016-12-05] MEDS: CLOPIDOGREL 75 MG TAB PO SCH (10:30)
[2016-12-05] MEDS: FOLIC ACID 1 MG TAB PO SCH (10:31)
[2016-12-05] MEDS: SODIUM CHLORIDE 0.9% FLUSH 10 ML FLUSH IV FLUSH SCH ×2 (10:31→22:02)
[2016-12-05] MEDS: ASPIRIN 81 MG CHEW TAB PO SCH (10:31)
[2016-12-05] MEDS: THIAMINE HCL 100 MG TAB PO SCH (10:36)
--- NOTE | 2016-12-05 12:02 | HHI.GIFU ---
Subjective Remarks Resting in bed. C/O generalized pain- unable to localize specific area. C/O being thirsty. (Nga Ramos) Objective Vitals I&O Vital Signs Date Time Temp Pulse Resp B/P Pulse Ox O2 Delivery O2 Flow Rate FiO2 12/05/16 08:16 8 Simple Mask 8.00 12/05/16 06:00 78 12/05/16 04:38 93 Simple Mask 8.00 12/05/16 04:00 98.0 89 19 117/69 88 12/05/16 04:00 89 12/05/16 02:00 80 12/05/16 01:05 18 12/05/16 00:00 75 12/05/16 00:00 97.8 75 11 102/60 90 12/04/16 22:25 92 Nasal Cannula 6.00 12/04/16 22:00 84 12/04/16 20:00 98.0 82 11 126/68 92 12/04/16 20:00 82 12/04/16 16:01 90 20 140/57 90 12/04/16 16:00 97.1 90 21 92 12/04/16 15:30 97 21 122/63 85 12/04/16 15:00 99 20 126/68 91 12/04/16 14:30 89 15 103/60 92 12/04/16 14:00 89 15 101/56 92 12/04/16 13:36 90 17 108/59 12/04/16 13:00 93 16 120/63 12/04/16 12:30 87 15 108/62 90 12/04/16 12:00 98.4 92 15 110/61 74 I/O 12/04/16 12/04/16 12/04/16 12/05/16 12/05/16 12/05/16 06:59 14:59 22:59 06:59 14:59 22:59 Intake Total 420 ml 1440 ml 862 ml 222 ml Output Total 775 ml 2350 ml 2950 ml 525 ml Balance -355 ml -910 ml -2088 ml -303 ml Intake Oral 600 ml 400 ml IV Total 420 ml 840 ml 462 ml 222 ml Output Urine Total 775 ml 2350 ml 2950 ml 525 ml # Bowel Movements 1 0 Laboratory Laboratory Tests Test 12/04/16 12/05/16 19:15 05:00 Potassium Level 2.8 3.6 White Blood Count 6.3 Red Blood Count 3.04 Hemoglobin 8.3 Hematocrit 25.5 Mean Corpuscular Volume 84.0 Mean Corpuscular Hemoglobin 27.4 Mean Corpuscular Hemoglobin 32.7 Concent Red Cell Distribution Width 16.3 Platelet Count 136 Mean Platelet Volume 9.0 Neutrophils (%) (Auto) 88.4 Lymphocytes (%) (Auto) 6.0 Monocytes (%) (Auto) 5.5 Eosinophils (%) (Auto) 0.0 Basophils (%) (Auto) 0.1 Neutrophils # (Auto) 5.6 Lymphocytes # (Auto) 0.4 Monocytes # (Auto) 0.3 Eosinophils # (Auto) 0.0 Basophils # (Auto) 0.0 CBC Comment DIFF FINAL Differential Comment Sodium Level 146 Chloride Level 106 Carbon Dioxide Level 32.9 Anion Gap 7 Blood Urea Nitrogen 47 Creatinine 0.99 Estimat Glomerular Filtration 77 Rate Random Glucose 273 Calcium Level 7.3 Protein Corrected Calcium 8.0 Phosphorus Level 1.2 Magnesium Level 2.1 Total Bilirubin 1.0 Aspartate Amino Transf 61 (AST/SGOT) Alanine Aminotransferase 47 (ALT/SGPT) Alkaline Phosphatase 78 Total Protein 5.8 Albumin 2.1 Date/Time Procedure Status Source Growth 12/04/16 04:22 Aerobic Blood Culture - Preliminary Resulted Blood Line Gram Positive Cocci 12/04/16 04:22 Anaerobic Blood Culture - Preliminary Resulted Blood Line NO GROWTH IN 1 DAY 12/02/16 20:00 Wound Culture - Final Complete Catheter Tip Other Staphylococcus Aureus 12/02/16 15:25 Gram Stain - Final Complete Wound Chest 12/02/16 15:25 Wound Culture - Final Complete Staphylococcus Aureus 12/02/16 04:31 Aerobic Blood Culture - Final Resulted Blood Peripheral Staphylococcus Aureus 12/02/16 04:31 Anaerobic Blood Culture - Preliminary Resulted Blood Peripheral NO GROWTH IN 3 DAYS 12/01/16 17:00 Urine Culture - Final Complete Urine Catheterized Urine Staphylococcus Aureus Imaging Last Impressions Chest X-Ray 12/05/16 0600 Signed Impressions: Service Date/Time: Monday, December 05, 2016 03:30 - CONCLUSION: 1. Cardiomegaly and findings of vascular congestion without overt failure. There has been no significant change when compared to the prior exam. Bobby Matias MD Head CT 12/01/16 0000 Signed Impressions: Service Date/Time: Thursday, December 01, 2016 07:59 - CONCLUSION: 1. Questionable area of low attenuation left temporal lobe could be artifact versus less likely infarct. MRI may be warranted based on clinical history. 2. No midline shift or mass effect. 3. No intraparenchymal hemorrhage. Jagjit Tapia MD Brain MRI 12/01/16 0000 Signed Impressions: Service Date/Time: Thursday, December 01, 2016 12:07 - CONCLUSION: Normal examination. Barrett Rodriguez MD Abdomen X-Ray 12/01/16 0000 Signed Impressions: Service Date/Time: Thursday, December 01, 2016 16:48 - CONCLUSION: No evidence of obstruction. Feeding tube tip in the distal stomach. Barrett Rodriguez MD Abdomen/Pelvis CT 11/29/16 2356 Signed Impressions: Service Date/Time: Wednesday, November 30, 2016 01:35 - CONCLUSION: 1. Markedly abnormal appearance of the distal esophagus consistent with the history of esophageal carcinoma. 2. Atherosclerotic calcifications of the aorta and iliac vessels. 3. Cirrhotic appearance to the liver with a mildly nodular contour present. Erik Simon MD CT Angiography 11/29/16 2348 Signed Impressions: Service Date/Time: Wednesday, November 30, 2016 01:35 - CONCLUSION: 1. No evidence for pulmonary embolism or pneumonia. 2. Abnormal appearance of the esophagus with and soft tissue consistent with the history of carcinoma. Erik Simon MD Physical Exam HEENT: Normocephalic; atraumatic; no jaundice. CHEST: Resp. even/unlabored, shallow, even. O2 5L via n/c. Drsg right upper chest d/i CARDIAC: RRR. ABDOMEN: Soft, very mildly distended, nontender; no hepatosplenomegaly; bowel sounds are present in all four quadrants. EXTREMITIES: No clubbing, cyanosis, or edema. SKIN: Normal; no rash; no jaundice. 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 PET Scan (10/28/16)----> negative examination of the head and neck, findings characteristic of esophageal neoplasm. S/P EGD/Colonoscopy (11/20/16)----> There was a long stricture i the mid esophagus and distal esophagus, multiple biopsies were performed, the mucosa of the stomach appeared normal, duodenal mucosa showed no abnormalities in the entire duodenum, retroflexed views revealed a small hiatal hernia; nine sessile polyps ranging from 4-12 mm in size were found at the cecum, in the ascending colon, descending colon, sigmoid colon, and rectum; polypectomy was performed using snare cautery, moderate diverticulosis was noted in the left colon, retroflexed views revealed internal grade I hemorrhoids, a digital rectal exam was performed and revealed no abnormalities of the anus. Pathology revealed invasive adenocarcinoma- distal esophagus, descending colon polyp and rectosigmoid polyp both benign hyperplastic colonic polyp, no adenomatous change or malignancy is seen. D/W Oncology, plan is for EUS when more stable- timing to be determined. Possibly next week. - Dysphagia. ST following, full liquids with honey consistency liquids - Constipation. (+) BM. Miralax - Abnormal imaging of the liver on CT scan, consistent with cirrhosis. Abdomen/ Pelvis CT (11/29/16)----> 1. Markedly abnormal appearance of the distal esophagus consistent with the history of esophageal carcinoma. 2. Atherosclerotic calcifications of the aorta and iliac vessels. 3. Cirrhotic appearance to the liver with a mildly nodular contour present. Unclear if he has hx of cirrhosis. There is mention of hx of HCV in EMR, but patient has had undetectable viral load as far back as 2001. Pt is now awake and able to tell me that he has a history of HCV and was successfully treated with Interferon/ribavirin in the past. Iron saturation 4.1%, Ferritin 124, Hepatitis C antibodies (+), viral load undetectable, TERRIE negative , ASMA < 20.0, AMA neg, Ceruloplasmin 40 and alpha 1 antitrypsin 298. Labs and imaging consistent with cirrhosis. Pt does not currently drink, but states that he was a heavy drinker in the past. T. Bili 1.0, AST 61, ALT 47, Alk Phosph 78. - Sepsis/Bacteremia/UTI. Urine and Bcx with Staphylococcus aureus. S/P removal of infusaport by GS (12/02). Cefepime - AMS, Acute metabolic encephalopathy. Head CT (12/01/16)-----> 1. Questionable area of low attenuation left temporal lobe could be artifact versus less likely infarct. MRI may be warranted based on clinical history. 2. No midline shift or mass effect. 3. No intraparenchymal hemorrhage. Brain MRI (12/01/16 )----> Normal examination. Lethargic, but awakens and follows commands. - Resp. Failure. Chest X-Ray (12/05/16)----> 1. Cardiomegaly and findings of vascular congestion without overt failure. There has been no significant change when compared to the prior exam. S/P Extubation on 12/03. O2 5L via n/c. Solumerol, nebs, - NSTEMI, CAD. S/P left heart catheterization (11/30/16) with Dr. Murillo and this revealed RCA 10% lesion mid segment, mild calcifications left main, LAD with calcification from it's proximal segment to its midsegment however, with no significant obstructive lesions, The LAD is giving off to a diagonal which has a 70% lesion in its ostial segment, left circumflex artery with a proximal clot thrombus, S/P percutaneous coronary intervention/bare metal stent to proximal left circumflex. ASA and Plavix, as well as aggressive optimization of coronary artery disease. 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 S/P mohs surgery by a tile erector in September of 2015 and shortly after this, developed a mass near the surgical area. S/P at [facility] with Dr. Valdovinos in June of 2016----> underwent extensive head and neck surgery involving a parotidectomy and radical neck dissection in September of 2016. Because of high risk features of local recurrence with perineural invasion and positive margins, it was recommended that he have concurrent chemoradiation therapy. He was evaluated by Dr. Cross for radiation and seen by Dr. Bell for oncology. PET Scan ()----> negative examination of the head and neck, findings characteristic of esophageal neoplasm. Direct visualization is recommended. - Hx HTN (now hypotensive), Hyperlipidemia, DM. per attending. PLAN: - Full liquids with honey thickened liquids- as recommended by ST. - Cont. PPI - Cont. Miralax - Monitor labs - EUS when more stable, ? next week vs. outpatient - Supportive care - Further recommendations to follow based on results of above - Pt seen and examined by Dr. Kelly and myself and this note is written on her behalf (Nga Ramos) Nga Ramos Dec 05, 2016 12:02 Mai Kelly MD Dec 05, 2016 20:45
--- NOTE | 2016-12-05 12:59 | PD.ONC.PN ---
Subjective Subjective Remarks Affebrile overnight. Patient resting in bed, in restraints. Ate breakfast this AM. "I feel awful." Objective Data Date Time Temp Pulse Resp B/P Pulse Ox O2 Delivery O2 Flow Rate FiO2 12/05/16 08:16 8 Simple Mask 8.00 12/05/16 06:00 78 12/05/16 04:38 93 Simple Mask 8.00 12/05/16 04:00 98.0 89 19 117/69 88 12/05/16 04:00 89 12/05/16 02:00 80 12/05/16 01:05 18 12/05/16 00:00 75 12/05/16 00:00 97.8 75 11 102/60 90 12/04/16 22:25 92 Nasal Cannula 6.00 12/04/16 22:00 84 12/04/16 20:00 98.0 82 11 126/68 92 12/04/16 20:00 82 12/04/16 16:01 90 20 140/57 90 12/04/16 16:00 97.1 90 21 92 12/04/16 15:30 97 21 122/63 85 12/04/16 15:00 99 20 126/68 91 12/04/16 14:30 89 15 103/60 92 12/04/16 14:00 89 15 101/56 92 12/04/16 13:36 90 17 108/59 12/04/16 13:00 93 16 120/63 12/05/16 12/05/16 12/05/16 06:59 14:59 22:59 Intake Total 222 ml Output Total 525 ml Balance -303 ml Result Diagram: 12/05/16 0500 12/05/16 0500 Laboratory Results Laboratory Tests Test 12/04/16 12/05/16 19:15 05:00 Potassium Level 2.8 MEQ/L 3.6 MEQ/L White Blood Count 6.3 TH/MM3 Red Blood Count 3.04 MIL/MM3 Hemoglobin 8.3 GM/DL Hematocrit 25.5 % Mean Corpuscular Volume 84.0 FL Mean Corpuscular Hemoglobin 27.4 PG Mean Corpuscular Hemoglobin 32.7 % Concent Red Cell Distribution Width 16.3 % Platelet Count 136 TH/MM3 Mean Platelet Volume 9.0 FL Neutrophils (%) (Auto) 88.4 % Lymphocytes (%) (Auto) 6.0 % Monocytes (%) (Auto) 5.5 % Eosinophils (%) (Auto) 0.0 % Basophils (%) (Auto) 0.1 % Neutrophils # (Auto) 5.6 TH/MM3 Lymphocytes # (Auto) 0.4 TH/MM3 Monocytes # (Auto) 0.3 TH/MM3 Eosinophils # (Auto) 0.0 TH/MM3 Basophils # (Auto) 0.0 TH/MM3 CBC Comment DIFF FINAL Differential Comment Sodium Level 146 MEQ/L Chloride Level 106 MEQ/L Carbon Dioxide Level 32.9 MEQ/L Anion Gap 7 MEQ/L Blood Urea Nitrogen 47 MG/DL Creatinine 0.99 MG/DL Estimat Glomerular Filtration 77 ML/MIN Rate Random Glucose 273 MG/DL Calcium Level 7.3 MG/DL Protein Corrected Calcium 8.0 MG/DL Phosphorus Level 1.2 MG/DL Magnesium Level 2.1 MG/DL Total Bilirubin 1.0 MG/DL Aspartate Amino Transf 61 U/L (AST/SGOT) Alanine Aminotransferase 47 U/L (ALT/SGPT) Alkaline Phosphatase 78 U/L Total Protein 5.8 GM/DL Albumin 2.1 GM/DL Culture Results Microbiology Date/Time Procedure Status Source Growth 12/02/16 15:25 Gram Stain - Final Complete Wound Chest 12/02/16 15:25 Wound Culture - Final Complete Staphylococcus Aureus 12/02/16 20:00 Wound Culture - Final Complete Catheter Tip Other Staphylococcus Aureus 12/03/16 03:28 Aerobic Blood Culture - Preliminary Resulted Blood Peripheral NO GROWTH IN 2 DAYS 12/03/16 03:28 Anaerobic Blood Culture - Preliminary Resulted Blood Peripheral NO GROWTH IN 2 DAYS 12/04/16 04:22 Aerobic Blood Culture - Preliminary Resulted Blood Line Gram Positive Cocci 12/04/16 04:22 Anaerobic Blood Culture - Preliminary Resulted Blood Line NO GROWTH IN 1 DAY Imaging Studies Last 24 hours Impressions Chest X-Ray 12/05/16 0600 Signed Impressions: Service Date/Time: Monday, December 05, 2016 03:30 - CONCLUSION: 1. Cardiomegaly and findings of vascular congestion without overt failure. There has been no significant change when compared to the prior exam. Bobby Matias MD Administered Medications Medications (Trade) Dose Ordered Sig/Geovanny Route PRN Reason Start Time Stop Time Status Last Admin Dose Admin Sodium Chloride (NS Flush) 2 ml UNSCH PRN IV FLUSH FLUSH AFTER USING IV ACCESS 11/30/16 02:45 12/01/16 21:53 Sodium Chloride (NS Flush) 2 ml BID IV FLUSH 11/30/16 09:00 12/05/16 10:31 Oxycodone HCl (Roxicodone) 5 mg Q4H PRN PO PAIN SCALE 3 TO 5 11/30/16 02:45 12/05/16 10:31 Senna/Docusate Sodium (Rere-Colace) 1 tab BID PO 11/30/16 09:00 12/05/16 10:30 Pantoprazole Sodium (Protonix Inj) 40 mg Q12H IV PUSH 11/30/16 09:00 12/05/16 10:30 Acetaminophen (Tylenol) 325 mg Q4H PRN PO PAIN SCALE 1 TO 2 11/30/16 13:45 12/01/16 17:36 Aspirin (Aspirin Chew) 81 mg DAILY PO 11/30/16 13:45 12/05/16 10:31 Clopidogrel Bisulfate (Plavix) 75 mg DAILY PO 12/01/16 09:00 12/05/16 10:30 Metoprolol Tartrate (Lopressor) 12.5 mg BID PO 11/30/16 21:00 Hold 12/01/16 09:51 Atorvastatin Calcium (Lipitor) 10 mg HS PO 11/30/16 21:00 Hold 12/02/16 21:22 Sodium Chloride (NS Flush) 5 ml Q21D IV FLUSH 11/30/16 18:00 11/30/16 18:00 Heparin Sodium (Porcine) 500 units 500 units Q21D IV FLUSH 11/30/16 18:00 11/30/16 18:04 Cefazolin Sodium/ Dextrose (Ancef 2 Gm Premix) 50 ml @ 100 mls/hr Q8H IV 12/01/16 18:00 Hold 12/03/16 08:27 Acetaminophen (Tylenol 650 Mg/ 20 ml Liq) 650 mg Q6H PRN PO FEVER 12/01/16 17:30 12/02/16 01:07 Enoxaparin Sodium (Lovenox Inj) 40 mg Q24H SQ 12/02/16 09:00 12/05/16 10:29 Chlorhexidine Gluconate 15 ml 15 ml BID@08,20 MT 12/02/16 08:00 12/04/16 21:15 Vasopressin 40 units/Dextrose 100 ml @ 4.5 mls/hr [id number] IV 12/02/16 11:04 12/03/16 04:17 Norepinephrine Bitartrate (Levophed-Dextrose Drip) 250 ml @ 0 mls/hr TITRATE IV 12/02/16 15:15 12/03/16 04:05 Insulin Aspart (NovoLOG SUPPLEMENTAL SCALE) 1 Q4HR SQ 12/03/16 00:00 12/05/16 08:00 Polyethylene Glycol 17 gm 17 gm DAILY PO 12/04/16 09:00 12/05/16 09:00 Cefepime HCl 2000 mg/Sodium Chloride 100 ml @ 200 mls/hr Q8H IV 12/03/16 17:00 12/05/16 10:30 Potassium Chloride (KCl 40 Meq Premix Inj) 100 ml @ 50 mls/hr Q2H PRN IV For Potassium 2.8 - 3.2 mEq/L 12/04/16 09:30 12/04/16 21:17 Methylprednisolone Sodium Succinate (SoluMEDROL INJ) 40 mg Q12HR IV PUSH 12/05/16 09:00 12/05/16 10:30 Thiamine HCl (Vitamin B1) 100 mg DAILY PO 12/05/16 09:00 12/05/16 10:36 Multivitamins (Theragran) 1 tab DAILY PO 12/05/16 09:00 12/05/16 10:30 Folic Acid (Folate) 1 mg DAILY PO 12/05/16 09:00 12/05/16 10:31 Objective Remarks GENERAL: Middle aged male upright in bed in [facility]. SKIN: Warm and dry. bandage, right chest wall. HEAD: Normocephalic. EYES: No injection or drainage. NECK: Supple, trachea midline. CARDIOVASCULAR: Regular rate and rhythm. RESPIRATORY: anterior ray clear. on 6L O2 via nc GASTROINTESTINAL: Abdomen soft, non-tender, nondistended. EXTREMITIES: No cyanosis. BLE with SCD's in place. MUSCULOSKELETAL: Adequate muscle tone. NEUROLOGICAL: awake, normal speech. following commands. Assessment/Plan Problem List: (1) NSTEMI (non-ST elevated myocardial infarction) Status: Acute Plan: --had elevated troponin and ST-segment changes consistent with acute NH. --s/p cardiac cath, stent placement to proximal left circumflex --cardiology following --on plavix and ASA (2) SCC (squamous cell carcinoma) Status: Acute Plan: --has a head and neck, lung malignancy which was locally advanced. --received definitive treatment with surgery. Post surgery he had positive margins and some poor risk features and he was about to get concurrent chemotherapy and radiation and adjuvantly to achieve local control of the disease--waiting to receive concurrent chemo/XRT until we have biopsied the esophageal mass --PET scan to stage his disease prior to treatment showed an esophageal masser. (3) Esophageal mass Status: Acute Plan: --concerning for primary esophageal cancer. --patient had OP EGD with biopsy, pathology showed adenocarcinoma. will need EUS for staging when available. --EGD/Colonoscopy, 11/20/16--showed long stricture in the mid esophagus and distal esophagus, multiple biopsies were performed Pathology revealed invasive adenocarcinoma- distal esophagus (4) Normocytic anemia Status: Acute Plan: --transfuse packed red blood cells if his hemoglobin drops below 8. --iron deficient --will need IV iron. (5) Sepsis Status: Acute Plan: --BC +, S. Aureus --had removal of port, + S. aureus --on Cefepime (6) Thrombocytopenia Status: Acute Plan: --due to sepsis/DIC --Platelet count improving. Assessment 61y/o male with a history of head and neck cancer and also with an esophageal mass who presented with abdominal pain, found to have NSTEMI h/o Squamous cell carcinoma of the parotid gland and Esophageal mass. Plan 1. monitor CBC, no transfusion needed at present 2. continue Lovenox as DVT prophylaxis 3. will need EUS prior to discharge to expedite workup. Attending Statement The exam, history, and the medical decision-making described in the above note were completed with the assistance of the mid-level provider. I reviewed and agree with the findings presented. I attest that I had a [id number] encounter with the patient on the same day, and personally performed and documented my assessment and findings in the medical record. Problem Qualifiers (1) Sepsis: Qualified Code: A41.9 - Sepsis, due to unspecified organism Perla Duran Dec 05, 2016 12:59 Brant Bell MD Dec 05, 2016 21:26
--- NOTE | 2016-12-05 16:51 | HHI.PR ---
Subjective Subjective Notes Resting in bed Objective Vitals/I&O Vital Signs Date Time Temp Pulse Resp B/P Pulse Ox O2 Delivery O2 Flow Rate FiO2 12/05/16 15:30 135/67 91 12/05/16 15:00 83 13 12/05/16 12:00 98.1 12/05/16 08:16 Simple Mask 8.00 12/03/16 09:17 40 Labs Laboratory Tests Test 12/04/16 12/05/16 19:15 05:00 Potassium Level 2.8 3.6 White Blood Count 6.3 Red Blood Count 3.04 Hemoglobin 8.3 Hematocrit 25.5 Mean Corpuscular Volume 84.0 Mean Corpuscular Hemoglobin 27.4 Mean Corpuscular Hemoglobin 32.7 Concent Red Cell Distribution Width 16.3 Platelet Count 136 Mean Platelet Volume 9.0 Neutrophils (%) (Auto) 88.4 Lymphocytes (%) (Auto) 6.0 Monocytes (%) (Auto) 5.5 Eosinophils (%) (Auto) 0.0 Basophils (%) (Auto) 0.1 Neutrophils # (Auto) 5.6 Lymphocytes # (Auto) 0.4 Monocytes # (Auto) 0.3 Eosinophils # (Auto) 0.0 Basophils # (Auto) 0.0 CBC Comment DIFF FINAL Differential Comment Sodium Level 146 Chloride Level 106 Carbon Dioxide Level 32.9 Anion Gap 7 Blood Urea Nitrogen 47 Creatinine 0.99 Estimat Glomerular Filtration 77 Rate Random Glucose 273 Calcium Level 7.3 Protein Corrected Calcium 8.0 Phosphorus Level 1.2 Magnesium Level 2.1 Total Bilirubin 1.0 Aspartate Amino Transf 61 (AST/SGOT) Alanine Aminotransferase 47 (ALT/SGPT) Alkaline Phosphatase 78 Total Protein 5.8 Albumin 2.1 Date/Time Procedure Status Source Growth 12/05/16 13:31 Aerobic Blood Culture Received Blood Peripheral Pending 12/05/16 13:31 Anaerobic Blood Culture Received Blood Peripheral Pending 12/04/16 04:22 Aerobic Blood Culture - Preliminary Resulted Blood Line Gram Positive Cocci 12/04/16 04:22 Anaerobic Blood Culture - Preliminary Resulted Blood Line NO GROWTH IN 1 DAY 12/02/16 20:00 Wound Culture - Final Complete Catheter Tip Other Staphylococcus Aureus 12/02/16 15:25 Gram Stain - Final Complete Wound Chest 12/02/16 15:25 Wound Culture - Final Complete Staphylococcus Aureus 12/02/16 04:31 Aerobic Blood Culture - Final Resulted Blood Peripheral Staphylococcus Aureus 12/02/16 04:31 Anaerobic Blood Culture - Preliminary Resulted Blood Peripheral NO GROWTH IN 3 DAYS 12/01/16 17:00 Urine Culture - Final Complete Urine Catheterized Urine Staphylococcus Aureus Cardiovascular: Regular Lungs: Clear Abdomen: Non-distended, Non-tender Extremities: No edema Narrative Exam RIGHT subclavian: s/p port removal; packing removed; wound bed is c/d/i; repacked and dry dressing applied A/P Assessment and Plan 61 year old male s/p Infusaport removal -Dressing change daily: saline soaked 2x2 loosely packed into wound; cover with dry 4x4 and secure with paper tape -CCM following -Discussed with ROMAN Maier -Will see PRN over the weekend; please call with questions Attending Note - Dr. Rich Port site without erythema, clean The exam, history, and the medical decision-making described in the above note were completed with the assistance of the mid-level provider. I reviewed and agree with the findings presented. I attest that I had a [id number] encounter with the patient on the same day, and personally performed and documented my assessment and findings in the medical record. Cindy Parekh Dec 05, 2016 16:51 Bebeto Rich MD Dec 09, 2016 19:53
[2016-12-05 19:53] LABS: HEPATITIS C RNA GENOTYPE NOT DETECTED (())
[2016-12-05] MEDS: ONDANSETRON HCL 4 MG/2 ML VIAL IV PRN (22:06)
[2016-12-06] VITALS (27 sets, daily range): BP systolic 127–152; BP diastolic 61–72; PULSE 76–96; RESP 13–25; TEMP 97.5–99.1; O2SAT 90–96
[2016-12-06] MEDS: MORPHINE SULFATE 4 MG/ML INJ IV PUSH PRN ×5 (00:26→16:18)
[2016-12-06] MEDS: CEFEPIME INJ 2,000 MG in SODIUM CHLORIDE 0.9% INJ 100 ML IV SCH ×2 (00:26→08:16)
[2016-12-06] MEDS: INSULIN ASPART SUPPLEMENTAL SCALE SQ SCH ×6 (01:19→20:24)
[2016-12-06] MEDS: VASOPRESSIN INJ 40 UNITS in DEXTROSE 5% IN WATER 100ML INJ 98 ML IV SCH ×2 (03:54)
[2016-12-06 03:58] LABS: AUTOMATED NEUTROPHIL # 7.6 TH/MM3 (1.8-7.7); BASOPHIL % 0.1 % (0.0-2.0); HEMATOCRIT 27.2 % (39.0-51.0); HEMO FLAGS DIFF FINAL; LYMPH % 4.8 % (9.0-44.0); LYMPHOCYTE # 0.4 TH/MM3 (1.0-4.8); MEAN CELL VOLUME 84.5 FL (80.0-100.0); MEAN CORPUSCULAR HEMOGLOBIN 27.9 PG (27.0-34.0); MEAN CORPUSCULAR HGB CONC 33.1 % (32.0-36.0); MONO % 3.1 % (0.0-8.0); PLATELET COUNT 146 TH/MM3 (150-450); RED BLOOD COUNT 3.22 MIL/MM3 (4.50-5.90); RED CELL DISTRIBUTION WIDTH 16.7 % (11.6-17.2); WHITE BLOOD COUNT 8.3 TH/MM3 (4.0-11.0)
[2016-12-06 04:16] LABS: ANION GAP 4 MEQ/L (5-15); AST (GOT) 41 U/L (15-37); BICARBONATE 36.1 MEQ/L (21.0-32.0); BLOOD UREA NITROGEN 43 MG/DL (7-18); CHLORIDE 111 MEQ/L (98-107); GLOMERULAR FILTRATION RATE 91 ML/MIN (>89); POTASSIUM 4.1 MEQ/L (3.5-5.1); SODIUM (NA) 151 MEQ/L (136-145)
[2016-12-06 04:18] LABS: ALT (GPT) 44 U/L (12-78)
[2016-12-06 04:20] LABS: ALKALINE PHOSPHATASE 84 U/L (45-117)
--- NOTE | 2016-12-06 07:14 | HHI.CCPN ---
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 He was hypotensive, febrile up to 101 and received IV fluid resuscitation with improvement in his blood pressure. EKG showed ST-T wave changes, and troponin was elevated and peaked at 17.1. The patient has been evaluated by cardiology for NSTEMI. He underwent PCI with bare metal stent to LCx by Dr. Krause on 11/30/16. The patient had a CT of the abdomen and pelvis on admission which showed marked soft tissue thickening in the distal esophagus concerning for esophageal cancer. The patient was also noted to have liver cirrhosis and mild splenomegaly. Patient has a history of alcohol intake but according to the girlfriend has not had alcoholic drinks for several months. CTA no evidence of pulmonary embolism or pneumonia. Critical care was consulted 12/01 for altered mentation, persistent fever, MSSA bacteremia and worsening sepsis. Apparently patient was agitated overnight requiring restraints. He also sustained a fall when he tried to climb out of the bed. CT of the head was negative except for a possible artifact left temporal region. An MRI which was done today came back negative. On my evaluation the ICU patient was very lethargic and tachypneic breathing approximately 35-40. ABG showed respiratory alkalosis. His altered mentation is most likely secondary to severe sepsis, and possible alcohol withdrawal. Blood cultures 08/19 growing MSSA, lactic acid 3.6. SUBJ 12/02: Patient found to be tachypneic today, and in severe respiratory distress. His stat breathing treatment and IV Solu-Medrol did not improve respiratory status. Patient was emergently intubated and placed on mechanical ventilation for respiratory extremis. (Unable to visualize cords with direct laryngoscopy. With Glidescope #4 blade Grade 2 view, easy intubation). I'm told by GI that patient had workup for esophageal mass as outpatient which invasive adenocarcinoma of distal esophagus 12/03: Remains critically ill in septic shock on 2 pressors, but trending in the right direction. Levophed down from 20 mcg/min to 10 mcg/m today. Fever trending down after removal of the Ghiwob-c-Mqcp. Possible was expressed from about 1 inch superior to the Vauwml-t-Nbmj along the track of the catheter, Dr. Rich was emergently consulted for removal of the port which he did yesterday. Urine output remains adequate renal function though slightly worsened 12/04: Rapid clinical improvement after the Fvhwfy-a-Iriy was removed. Tip culture and wound culture also with MSSA. Currently remains off all pressors, extubated yesterday. Oriented to person and somewhat to place. CXR showing left lower lobe airspace disease, GNR in sputum 12/06 No events overnight. Awake and alert. On 8L simple mask. Afebrile. Objective Vital Signs Date Time Temp Pulse Resp B/P Pulse Ox O2 Delivery O2 Flow Rate FiO2 12/06/16 06:00 88 12/06/16 04:00 97.9 17 127/61 94 12/05/16 20:16 Simple Mask 8.00 12/03/16 09:17 40 Intake and Output 12/05/16 12/05/16 12/06/16 08:00 16:00 00:00 Intake Total 222 ml 1178 ml 161 ml Output Total 525 ml 1650 ml 1350 ml Balance -303 ml -472 ml -1189 ml Result Diagram: 12/06/16 0320 12/06/16 0320 Other Results Laboratory Tests Test 12/06/16 03:20 White Blood Count 8.3 TH/MM3 Red Blood Count 3.22 MIL/MM3 Hemoglobin 9.0 GM/DL Hematocrit 27.2 % Mean Corpuscular Volume 84.5 FL Mean Corpuscular Hemoglobin 27.9 PG Mean Corpuscular Hemoglobin 33.1 % Concent Red Cell Distribution Width 16.7 % Platelet Count 146 TH/MM3 Mean Platelet Volume 9.3 FL Neutrophils (%) (Auto) 92.0 % Lymphocytes (%) (Auto) 4.8 % Monocytes (%) (Auto) 3.1 % Eosinophils (%) (Auto) 0.0 % Basophils (%) (Auto) 0.1 % Neutrophils # (Auto) 7.6 TH/MM3 Lymphocytes # (Auto) 0.4 TH/MM3 Monocytes # (Auto) 0.3 TH/MM3 Eosinophils # (Auto) 0.0 TH/MM3 Basophils # (Auto) 0.0 TH/MM3 CBC Comment DIFF FINAL Differential Comment Sodium Level 151 MEQ/L Potassium Level 4.1 MEQ/L Chloride Level 111 MEQ/L Carbon Dioxide Level 36.1 MEQ/L Anion Gap 4 MEQ/L Blood Urea Nitrogen 43 MG/DL Creatinine 0.86 MG/DL Estimat Glomerular Filtration 91 ML/MIN Rate Random Glucose 219 MG/DL Calcium Level 7.5 MG/DL Phosphorus Level 2.0 MG/DL Magnesium Level 2.0 MG/DL Total Bilirubin 1.0 MG/DL Aspartate Amino Transf 41 U/L (AST/SGOT) Alanine Aminotransferase 44 U/L (ALT/SGPT) Alkaline Phosphatase 84 U/L Total Protein 6.0 GM/DL Albumin 2.1 GM/DL Imaging Last Impressions Chest X-Ray 12/05/16 0600 Signed Impressions: Service Date/Time: Monday, December 05, 2016 03:30 - CONCLUSION: 1. Cardiomegaly and findings of vascular congestion without overt failure. There has been no significant change when compared to the prior exam. Bobby Matias MD Head CT 12/01/16 0000 Signed Impressions: Service Date/Time: Thursday, December 01, 2016 07:59 - CONCLUSION: 1. Questionable area of low attenuation left temporal lobe could be artifact versus less likely infarct. MRI may be warranted based on clinical history. 2. No midline shift or mass effect. 3. No intraparenchymal hemorrhage. Jagjit Tapia MD Brain MRI 12/01/16 0000 Signed Impressions: Service Date/Time: Thursday, December 01, 2016 12:07 - CONCLUSION: Normal examination. Barrett Rodriguez MD Abdomen X-Ray 12/01/16 0000 Signed Impressions: Service Date/Time: Thursday, December 01, 2016 16:48 - CONCLUSION: No evidence of obstruction. Feeding tube tip in the distal stomach. Barrett Rodriguez MD Abdomen/Pelvis CT 11/29/16 3106 Signed Impressions: Service Date/Time: Wednesday, November 30, 2016 01:35 - CONCLUSION: 1. Markedly abnormal appearance of the distal esophagus consistent with the history of esophageal carcinoma. 2. Atherosclerotic calcifications of the aorta and iliac vessels. 3. Cirrhotic appearance to the liver with a mildly nodular contour present. Erik Simon MD CT Angiography 11/29/16 0831 Signed Impressions: Service Date/Time: Wednesday, November 30, 2016 01:35 - CONCLUSION: 1. No evidence for pulmonary embolism or pneumonia. 2. Abnormal appearance of the esophagus with and soft tissue consistent with the history of carcinoma. Erik Simon MD Objective Remarks GENERAL: Patient is 61 yo lying in be din NAD SKIN: Warm and dry. HEAD: Normocephalic. EYES: No scleral icterus. No injection or drainage. NECK: Supple, trachea midline. No JVD or lymphadenopathy. CARDIOVASCULAR: Regular rate and rhythm without murmurs, gallops, or rubs. RESPIRATORY: Breath sounds equal bilaterally. No accessory muscle use. GASTROINTESTINAL: Abdomen soft, non-tender, nondistended. MUSCULOSKELETAL: No cyanosis, or edema. Neuro: Awake and alert A/P Assessment and Plan NEURO: Acute metabolic encephalopathy-improving Possible alcohol withdrawal - Morphine for pain control - Encephalopathy most likely secondary to severe sepsis - Continue Thiamine, MVI, folic acid RESP: Acute hypoxemic respiratory failure Acute COPD exacerbation Anterior airway Tobacco abuse - Emergently intubated and placed on mechanical ventilation 12/02/16, extubated successfully 12/03/16 - Wean down oxygen as michael keep sat >92% - DuoNeb every 4 hours and when necessary - IV Solu-Medrol 40 q12 hr for COPD exacerbation - Broad spectrum ABX CV: Septic shock-resolved Lactic acidemia- Cleared NSTEMI - Monitor HR and BP keep MAP>65mmHg - Status post aggressive fluid resuscitation - s/p PCI to LCx by Dr. Krause on 11/30/16 - Continue ASA/Plavix/ - 2-D echo no veg, EF 50-55% GI: Invasive adenocarcinoma of the esophagus Liver cirrhosis - On Full liquid diet - GI following- has biopsy proven invasive adenoca of esophagus - IV Protonix : Acute kidney failure/ATN - Monitor renal function , I/O's, electrolytes replacement per protocol. -Place on 05/19 NS@75ml/hr. Will need Phos replacement today ID: Septic shock-resolved MSSA bacteremia Tkjycz-s-Okih infection - s/p removal of Ksoryl-o-Tiot - Catheter tip culture blood culture and wound culture also positive for MSSA - Sputum culture with GNR 12/02 - Continue abx per ID (Cefepime) will need abx for 6 weeks from port removal. HEME: Squamous cell carcinoma of the left parotid gland Esophageal adeno ca - Oncology Dr. Bell is following - Status post surgical resection for L parotid SCC. ENDO: Diabetes Hypothyroidism - Electrolyte replacement per protocol - SSI - Continue thyroid supplementation PROPH: - Bilateral lower extremity SCDs. - Lovenox/Protonix LINES: - Left subclavian central line placed 12/02/16 Level 3 PT/OT Dixie Navarrete MD Dec 06, 2016 07:14
[2016-12-06] MEDS: CHLORHEXIDINE 0.12% (ORAL KIT) 15 ML CUP MT SCH ×2 (08:00→20:00)
[2016-12-06] MEDS: MULTIVITAMIN TAB PO SCH (08:14)
[2016-12-06] MEDS: THIAMINE HCL 100 MG TAB PO SCH (08:15)
[2016-12-06] MEDS: FOLIC ACID 1 MG TAB PO SCH (08:15)
[2016-12-06] MEDS: ASPIRIN 81 MG CHEW TAB PO SCH (08:15)
[2016-12-06] MEDS: CLOPIDOGREL 75 MG TAB PO SCH (08:15)
[2016-12-06] MEDS: methylPREDNISolone SOD SUCC 125 MG/2 ML VIAL IV PUSH SCH ×2 (08:16→20:25)
[2016-12-06] MEDS: PANTOPRAZOLE SODIUM 40 MG VIAL IV PUSH SCH ×2 (08:16→20:25)
[2016-12-06] MEDS: POLYETHYLENE GLYCOL 17 GM PKG PO SCH (08:16)
[2016-12-06] MEDS: DOCUSATE SODIUM 50 MG/SENNA 8.6 MG TAB PO SCH ×2 (08:16→20:26)
[2016-12-06] MEDS: ENOXAPARIN SODIUM 40 MG/0.4 ML SYRINGE SQ SCH (08:16)
[2016-12-06] MEDS: SODIUM CHLORIDE 0.9% FLUSH 10 ML FLUSH IV FLUSH SCH ×2 (08:16→20:25)
[2016-12-06] MEDS: SODIUM CHLOR 0.45% 1000 ML INJ 1,000 ML IV SCH ×2 (08:17→22:41)
--- NOTE | 2016-12-06 09:07 | HHI.IDPN ---
Subjective Subjective Remarks Patient is a 61-year-old male, currently lethargic, and unable to give any history. History has been obtained from the chart. 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 It was reportedly malignant as well. He presented to the hospital complaining of generalized weakness, abdominal pain and progressive swallowing difficulty over the last 3 weeks. Evaluation in the emergency room revealed abnormal EKG, and he underwent cardiac catheterization. He had non-ST NJ, and had revascularization with stent placement of his left circumflex artery. Patient is spiked to 103, and there were 2 blood cultures done yesterday that are now reported as growing staph aureus. Patient currently has a Saxena catheter. There is a lot of sediment in his urine, and his urine culture is also showing staph aureus. CT of the abdomen and pelvis did not show any abnormality except the soft tissue mass in the esophagus. He had atherosclerosis of his vasculature. There was also evidence of possible liver cirrhosis. Patient is being evaluated for chemotherapy and radiation, but he has not been started. He had an Crnjkc-r-Emlr placement on November 12 on his right upper chest. Notes reviewed On FM, alexandru good Temps ok Has one new (+) BC /, drawn from his new line Good diuresis Port removed 12/02 Still no ID on GNR CXR 12/05, stable Antibiotics Cefepime Lines Port - removed 12/02 LSC TLC - 12/02 Past Medical History Hypertension Hyperlipidemia CAD Diabetes 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 and he had good margins Recurrent squamous cell carcinoma on the left face, with involvement of the parotid gland, status post surgery at [facility] Recently found to have esophageal mass Past Surgical History Appendectomy Liver Biopsy Resection of a squamous cell carcinoma on the left cheek in 2011 Extensive surgery on the left face and neck for recurrent squamous cell carcinoma Port Placement November 12, 2016 Allergies: Coded Allergies: Penicillin (Verified Allergy, Mild, Hives, 11/12/16) Objective . Vital Signs Date Time Temp Pulse Resp B/P Pulse Ox O2 Delivery O2 Flow Rate FiO2 12/06/16 06:00 88 12/06/16 04:00 97.9 83 17 127/61 94 12/06/16 04:00 83 12/06/16 02:54 16 12/06/16 02:00 82 12/06/16 00:00 99.1 89 18 139/67 93 12/06/16 00:00 89 12/05/16 22:00 80 12/05/16 20:16 94 Simple Mask 8.00 12/05/16 20:00 98.4 91 20 131/63 89 12/05/16 20:00 91 12/05/16 18:00 87 13 124/68 89 12/05/16 17:30 87 16 127/61 90 12/05/16 17:00 86 19 133/73 90 12/05/16 16:30 87 18 127/70 91 12/05/16 16:00 98.2 89 15 129/66 92 12/05/16 15:30 135/67 91 12/05/16 15:00 83 13 126/71 92 12/05/16 14:30 85 18 128/71 93 12/05/16 14:00 84 14 128/61 92 12/05/16 13:30 84 14 126/68 94 12/05/16 13:00 86 14 129/71 93 12/05/16 12:30 81 13 118/65 93 12/05/16 12:00 98.1 85 11 119/69 91 12/05/16 11:00 91 18 135/65 88 12/05/16 10:30 84 14 118/63 94 12/05/16 10:00 85 40 120/64 94 12/05/16 09:30 93 21 122/69 92 12/05/16 12/05/16 12/06/16 15:00 23:00 07:00 Intake Total 1178 ml 161 ml Output Total 1650 ml 1350 ml 950 ml Balance -472 ml -1189 ml -950 ml Intake Oral 800 ml IV Total 378 ml 161 ml Output Urine Total 1650 ml 1350 ml 950 ml # Bowel Movements 0 . Laboratory Tests Test 12/05/16 12/06/16 05:00 03:20 White Blood Count 6.3 TH/MM3 8.3 TH/MM3 Red Blood Count 3.04 MIL/MM3 3.22 MIL/MM3 Hemoglobin 8.3 GM/DL 9.0 GM/DL Hematocrit 25.5 % 27.2 % Mean Corpuscular Volume 84.0 FL 84.5 FL Mean Corpuscular Hemoglobin 27.4 PG 27.9 PG Mean Corpuscular Hemoglobin 32.7 % 33.1 % Concent Red Cell Distribution Width 16.3 % 16.7 % Platelet Count 136 TH/MM3 146 TH/MM3 Mean Platelet Volume 9.0 FL 9.3 FL Neutrophils (%) (Auto) 88.4 % 92.0 % Lymphocytes (%) (Auto) 6.0 % 4.8 % Monocytes (%) (Auto) 5.5 % 3.1 % Eosinophils (%) (Auto) 0.0 % 0.0 % Basophils (%) (Auto) 0.1 % 0.1 % Neutrophils # (Auto) 5.6 TH/MM3 7.6 TH/MM3 Lymphocytes # (Auto) 0.4 TH/MM3 0.4 TH/MM3 Monocytes # (Auto) 0.3 TH/MM3 0.3 TH/MM3 Eosinophils # (Auto) 0.0 TH/MM3 0.0 TH/MM3 Basophils # (Auto) 0.0 TH/MM3 0.0 TH/MM3 CBC Comment DIFF FINAL DIFF FINAL Differential Comment Laboratory Tests Test 12/04/16 12/05/16 12/06/16 19:15 05:00 03:20 Potassium Level 2.8 MEQ/L 3.6 MEQ/L 4.1 MEQ/L Sodium Level 146 MEQ/L 151 MEQ/L Chloride Level 106 MEQ/L 111 MEQ/L Carbon Dioxide Level 32.9 MEQ/L 36.1 MEQ/L Anion Gap 7 MEQ/L 4 MEQ/L Blood Urea Nitrogen 47 MG/DL 43 MG/DL Creatinine 0.99 MG/DL 0.86 MG/DL Estimat Glomerular Filtration 77 ML/MIN 91 ML/MIN Rate Random Glucose 273 MG/DL 219 MG/DL Calcium Level 7.3 MG/DL 7.5 MG/DL Protein Corrected Calcium 8.0 MG/DL Phosphorus Level 1.2 MG/DL 2.0 MG/DL Magnesium Level 2.1 MG/DL 2.0 MG/DL Total Bilirubin 1.0 MG/DL 1.0 MG/DL Aspartate Amino Transf 61 U/L 41 U/L (AST/SGOT) Alanine Aminotransferase 47 U/L 44 U/L (ALT/SGPT) Alkaline Phosphatase 78 U/L 84 U/L Total Protein 5.8 GM/DL 6.0 GM/DL Albumin 2.1 GM/DL 2.1 GM/DL Microbiology Date/Time Procedure Status Source Growth 12/04/16 04:22 Aerobic Blood Culture - Preliminary Resulted Blood Line Gram Positive Cocci 12/04/16 04:22 Anaerobic Blood Culture - Preliminary Resulted Blood Line NO GROWTH IN 1 DAY 12/05/16 13:27 Aerobic Blood Culture Received Blood Peripheral Pending 12/05/16 13:27 Anaerobic Blood Culture Received Blood Peripheral Pending 12/05/16 13:31 Aerobic Blood Culture Received Blood Peripheral Pending 12/05/16 13:31 Anaerobic Blood Culture Received Blood Peripheral Pending Imaging Chest X-Ray 12/05/16 0600 Signed Impressions: Service Date/Time: Monday, December 05, 2016 03:30 - CONCLUSION: 1. Cardiomegaly and findings of vascular congestion without overt failure. There has been no significant change when compared to the prior exam. Bobby Matias MD Head CT 12/01/16 0000 Signed Impressions: Service Date/Time: Thursday, December 01, 2016 07:59 - CONCLUSION: 1. Questionable area of low attenuation left temporal lobe could be artifact versus less likely infarct. MRI may be warranted based on clinical history. 2. No midline shift or mass effect. 3. No intraparenchymal hemorrhage. Jagjit Tapia MD Brain MRI 12/01/16 0000 Signed Impressions: Service Date/Time: Thursday, December 01, 2016 12:07 - CONCLUSION: Normal examination. Barrett Rodriguez MD Abdomen X-Ray 12/01/16 0000 Signed Impressions: Service Date/Time: Thursday, December 01, 2016 16:48 - CONCLUSION: No evidence of obstruction. Feeding tube tip in the distal stomach. Barrett Rodriguez MD Abdomen/Pelvis CT 11/29/16 2446 Signed Impressions: Service Date/Time: Wednesday, November 30, 2016 01:35 - CONCLUSION: 1. Markedly abnormal appearance of the distal esophagus consistent with the history of esophageal carcinoma. 2. Atherosclerotic calcifications of the aorta and iliac vessels. 3. Cirrhotic appearance to the liver with a mildly nodular contour present. Erik Simon MD CT Angiography 11/29/16 [id number] Signed Impressions: Service Date/Time: Wednesday, November 30, 2016 01:35 - CONCLUSION: 1. No evidence for pulmonary embolism or pneumonia. 2. Abnormal appearance of the esophagus with and soft tissue consistent with the history of carcinoma. Erik Simon MD Chest X-Ray 12/03/16 0600 Signed Impressions: Service Date/Time: Saturday, December 03, 2016 04:43 - CONCLUSION: Increasing consolidation in the left lower lung. Bilateral interstitial changes. Niko Wilcox MD Chest X-Ray 12/03/16 0000 Signed Impressions: Service Date/Time: Saturday, December 03, 2016 07:48 - CONCLUSION: 1. Persistent left retrocardiac density and slight interstitial prominence. Jagjit Tapia MD Chest X-Ray 12/02/16 0000 Signed Impressions: Service Date/Time: Friday, December 02, 2016 15:55 - CONCLUSION: Normal examination with endotracheal tube and central lines in good position. Barrett Rodriguez MD Chest X-Ray 12/02/16 0000 Signed Impressions: Service Date/Time: Friday, December 02, 2016 08:24 - CONCLUSION: Mild perihilar vascular congestion. Endotracheal tube is in good position Barrett Rodriguez MD Chest X-Ray 12/02/16 0000 Signed Impressions: Service Date/Time: Friday, December 02, 2016 06:53 - CONCLUSION: Underinflated examination with atelectasis at the lung bases. Given the technique, no acute abnormality or significant interval change is appreciated. Washington Marroquin MD Physical Exam GENERAL: Awake, following commands, NAD, on FM SKIN: Warm and dry. No generalized rash, no ecchymoses. Has embolic lesions in his L big toe no change HEAD: Atraumatic. Normocephalic. No temporal wasting, or tenderness. EYES: [place] conjunctiva. Pupils equal, round and reactive to light. Extraocular movements full and intact. No scleral icterus. No injection or drainage. EARS, NOSE AND THROAT: Nose without bleeding or purulent nasal discharge. No sinus tenderness. Orally intubated NECK: Trachea midline. Supple and not tender, no meningeal signs CARDIOVASCULAR: Regular rate and rhythm. No murmurs, rubs or gallops heard. RESPIRATORY: Coarse BS bilaterally. Previous port with intact dressing ABDOMEN: Soft, mildly distended. Mild diffuse tenderness, no guarding. Bowel sounds present and normoactive. No rebound. No organomegaly. EXTREMITIES: No clubbing, cyanosis. Has mild pedal edema. No calf tenderness. Well perfused and warm. NEUROLOGICAL: Awake and following commands, slow to respond PSYCHIATRIC: Cooperative LINE: Has new line LSC, site ok. Previous port site with 1 inch incision and packing, and has bloody drainage : Saxena in place, with sediment Assessment & Plan Remarks IMPRESSION Sepsis, with shock has MSSA due to port infection - S/P removal port 12/02 - has new (+) BC Respiratory failure, has L base infiltrate, and GNR in sputum (+) UC with Staph aureus, due to current bacteremia Recurrent squamous cell CA Esophageal CA Lethargy and SOB due to sepsis, better - has acidosis Renal insufficiency, due to sepsis and shock, better RECOMMENDATION Repeat BC from line Add Rifampin, for synergy vs MSSA - follow LFT Chnage Cefepime to Levaquin and give 7 days for GNR in sputum Restart IV Ancef Follow C/S and adjust Abx He will need 6 weeks IV Abx from date of port removal/last (+) BC for MSSA sepsis Follow temps Monitor respiratory status Monitor progress Carola Nassar MD Dec 06, 2016 09:07
[2016-12-06] MEDS: RESP: ALBUTEROL 2.5 MG/IPRATROPIUM 0.5 MG NEB (SCH) NEB ×5 (09:08→23:52)
[2016-12-06] MEDS: LEVOFLOXACIN 750 MG TAB PO SCH (10:11)
[2016-12-06] MEDS: ceFAZolin 2 GM PREMIX 50 ML IV SCH ×2 (10:11→18:40)
[2016-12-06] MEDS: RIFAMPIN 150 MG CAP PO SCH ×2 (10:14→20:25)
[2016-12-07] VITALS (26 sets, daily range): BP systolic 130–159; BP diastolic 61–90; PULSE 80–97; RESP 13–26; TEMP 97.6–98.8; O2SAT 92–96
[2016-12-07] MEDS: MORPHINE SULFATE 4 MG/ML INJ IV PUSH PRN ×3 (01:18→23:34)
[2016-12-07] MEDS: ceFAZolin 2 GM PREMIX 50 ML IV SCH ×3 (01:57→16:58)
[2016-12-07] MEDS: RESP: ALBUTEROL 2.5 MG/IPRATROPIUM 0.5 MG NEB (SCH) NEB ×5 (02:59→19:23)
[2016-12-07] MEDS: INSULIN ASPART SUPPLEMENTAL SCALE SQ SCH ×6 (03:42→21:29)
[2016-12-07 05:09] LABS: AUTOMATED NEUTROPHIL # 5.9 TH/MM3 (1.8-7.7); BASOPHIL % 0.1 % (0.0-2.0); EOSINOPHIL % 0.1 % (0.0-4.0); HEMATOCRIT 24.6 % (39.0-51.0); HEMO FLAGS DIFF FINAL; LYMPH % 9.8 % (9.0-44.0); LYMPHOCYTE # 0.7 TH/MM3 (1.0-4.8); MEAN CORPUSCULAR HEMOGLOBIN 27.8 PG (27.0-34.0); MEAN CORPUSCULAR HGB CONC 33.1 % (32.0-36.0); MONO % 3.2 % (0.0-8.0); NEUT % 86.8 % (16.0-70.0); PLATELET COUNT 139 TH/MM3 (150-450); RED BLOOD COUNT 2.93 MIL/MM3 (4.50-5.90); RED CELL DISTRIBUTION WIDTH 16.5 % (11.6-17.2); WHITE BLOOD COUNT 6.8 TH/MM3 (4.0-11.0)
[2016-12-07 05:31] LABS: ALT (GPT) 33 U/L (12-78); ANION GAP 7 MEQ/L (5-15); AST (GOT) 24 U/L (15-37); BICARBONATE 32.4 MEQ/L (21.0-32.0); BLOOD UREA NITROGEN 36 MG/DL (7-18); CHLORIDE 112 MEQ/L (98-107); GLOMERULAR FILTRATION RATE 86 ML/MIN (>89); MAGNESIUM 1.8 MG/DL (1.5-2.5); POTASSIUM 3.8 MEQ/L (3.5-5.1); SODIUM (NA) 151 MEQ/L (136-145)
[2016-12-07 05:33] LABS: ALKALINE PHOSPHATASE 81 U/L (45-117); TOTAL BILIRUBIN ADULT 1.4 MG/DL (0.2-1.0)
[2016-12-07] MEDS: CHLORHEXIDINE 0.12% (ORAL KIT) 15 ML CUP MT SCH ×2 (08:00→20:00)
--- NOTE | 2016-12-07 08:20 | HHI.CCPN ---
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 He was hypotensive, febrile up to 101 and received IV fluid resuscitation with improvement in his blood pressure. EKG showed ST-T wave changes, and troponin was elevated and peaked at 17.1. The patient has been evaluated by cardiology for NSTEMI. He underwent PCI with bare metal stent to LCx by Dr. Krause on 11/30/16. The patient had a CT of the abdomen and pelvis on admission which showed marked soft tissue thickening in the distal esophagus concerning for esophageal cancer. The patient was also noted to have liver cirrhosis and mild splenomegaly. Patient has a history of alcohol intake but according to the girlfriend has not had alcoholic drinks for several months. CTA no evidence of pulmonary embolism or pneumonia. Critical care was consulted 12/01 for altered mentation, persistent fever, MSSA bacteremia and worsening sepsis. Apparently patient was agitated overnight requiring restraints. He also sustained a fall when he tried to climb out of the bed. CT of the head was negative except for a possible artifact left temporal region. An MRI which was done today came back negative. On my evaluation the ICU patient was very lethargic and tachypneic breathing approximately 35-40. ABG showed respiratory alkalosis. His altered mentation is most likely secondary to severe sepsis, and possible alcohol withdrawal. Blood cultures 08/19 growing MSSA, lactic acid 3.6. SUBJ 12/02: Patient found to be tachypneic today, and in severe respiratory distress. His stat breathing treatment and IV Solu-Medrol did not improve respiratory status. Patient was emergently intubated and placed on mechanical ventilation for respiratory extremis. (Unable to visualize cords with direct laryngoscopy. With Glidescope #4 blade Grade 2 view, easy intubation). I'm told by GI that patient had workup for esophageal mass as outpatient which invasive adenocarcinoma of distal esophagus 12/03: Remains critically ill in septic shock on 2 pressors, but trending in the right direction. Levophed down from 20 mcg/min to 10 mcg/m today. Fever trending down after removal of the Dcbkxp-[id number]. Possible was expressed from about 1 inch superior to the Shazby-l-Gclx along the track of the catheter, Dr. Rich was emergently consulted for removal of the port which he did yesterday. Urine output remains adequate renal function though slightly worsened 12/04: Rapid clinical improvement after the Dfaucb-q-Ymvu was removed. Tip culture and wound culture also with MSSA. Currently remains off all pressors, extubated yesterday. Oriented to person and somewhat to place. CXR showing left lower lobe airspace disease, GNR in sputum 12/06 No events overnight. Awake and alert. On 8L simple mask. Afebrile. 12/07 Patient is down to 4L oxygen with good sats. Afebrile. Objective Vital Signs Date Time Temp Pulse Resp B/P Pulse Ox O2 Delivery O2 Flow Rate FiO2 12/07/16 08:10 95 Nasal Cannula 3.00 12/07/16 06:00 80 12/07/16 04:00 98.3 14 132/61 12/03/16 09:17 40 Intake and Output 12/06/16 12/06/16 12/06/16 07:59 15:59 23:59 Intake Total 1437 ml 856 ml Output Total 950 ml 1350 ml 1050 ml Balance -950 ml 87 ml -194 ml Result Diagram: 12/07/16 0355 12/07/16 0355 Other Results Laboratory Tests Test 12/07/16 03:55 White Blood Count 6.8 TH/MM3 Red Blood Count 2.93 MIL/MM3 Hemoglobin 8.1 GM/DL Hematocrit 24.6 % Mean Corpuscular Volume 84.0 FL Mean Corpuscular Hemoglobin 27.8 PG Mean Corpuscular Hemoglobin 33.1 % Concent Red Cell Distribution Width 16.5 % Platelet Count 139 TH/MM3 Mean Platelet Volume 9.3 FL Neutrophils (%) (Auto) 86.8 % Lymphocytes (%) (Auto) 9.8 % Monocytes (%) (Auto) 3.2 % Eosinophils (%) (Auto) 0.1 % Basophils (%) (Auto) 0.1 % Neutrophils # (Auto) 5.9 TH/MM3 Lymphocytes # (Auto) 0.7 TH/MM3 Monocytes # (Auto) 0.2 TH/MM3 Eosinophils # (Auto) 0.0 TH/MM3 Basophils # (Auto) 0.0 TH/MM3 CBC Comment DIFF FINAL Differential Comment Sodium Level 151 MEQ/L Potassium Level 3.8 MEQ/L Chloride Level 112 MEQ/L Carbon Dioxide Level 32.4 MEQ/L Anion Gap 7 MEQ/L Blood Urea Nitrogen 36 MG/DL Creatinine 0.90 MG/DL Estimat Glomerular Filtration 86 ML/MIN Rate Random Glucose 212 MG/DL Calcium Level 7.6 MG/DL Phosphorus Level 2.2 MG/DL Magnesium Level 1.8 MG/DL Total Bilirubin 1.4 MG/DL Aspartate Amino Transf 24 U/L (AST/SGOT) Alanine Aminotransferase 33 U/L (ALT/SGPT) Alkaline Phosphatase 81 U/L Total Protein 6.0 GM/DL Albumin 2.0 GM/DL Imaging Last Impressions Chest X-Ray 12/05/16 0600 Signed Impressions: Service Date/Time: Monday, December 05, 2016 03:30 - CONCLUSION: 1. Cardiomegaly and findings of vascular congestion without overt failure. There has been no significant change when compared to the prior exam. Bobby Matias MD Head CT 12/01/16 0000 Signed Impressions: Service Date/Time: Thursday, December 01, 2016 07:59 - CONCLUSION: 1. Questionable area of low attenuation left temporal lobe could be artifact versus less likely infarct. MRI may be warranted based on clinical history. 2. No midline shift or mass effect. 3. No intraparenchymal hemorrhage. Jagjit Tapia MD Brain MRI 12/01/16 0000 Signed Impressions: Service Date/Time: Thursday, December 01, 2016 12:07 - CONCLUSION: Normal examination. Barrett Rodriguez MD Abdomen X-Ray 12/01/16 0000 Signed Impressions: Service Date/Time: Thursday, December 01, 2016 16:48 - CONCLUSION: No evidence of obstruction. Feeding tube tip in the distal stomach. Barrett Rodriguez MD Abdomen/Pelvis CT 11/29/16 [id number] Signed Impressions: Service Date/Time: Wednesday, November 30, 2016 01:35 - CONCLUSION: 1. Markedly abnormal appearance of the distal esophagus consistent with the history of esophageal carcinoma. 2. Atherosclerotic calcifications of the aorta and iliac vessels. 3. Cirrhotic appearance to the liver with a mildly nodular contour present. Erik Simon MD CT Angiography 11/29/16 [id number] Signed Impressions: Service Date/Time: Wednesday, November 30, 2016 01:35 - CONCLUSION: 1. No evidence for pulmonary embolism or pneumonia. 2. Abnormal appearance of the esophagus with and soft tissue consistent with the history of carcinoma. Erik Simon MD Objective Remarks GENERAL: Patient is 61 yo lying in be din NAD SKIN: Warm and dry. HEAD: Normocephalic. EYES: No scleral icterus. No injection or drainage. NECK: Supple, trachea midline. No JVD or lymphadenopathy. CARDIOVASCULAR: Regular rate and rhythm without murmurs, gallops, or rubs. RESPIRATORY: Breath sounds equal bilaterally. No accessory muscle use. GASTROINTESTINAL: Abdomen soft, non-tender, nondistended. MUSCULOSKELETAL: No cyanosis, or edema. Neuro: Awake and alert A/P Assessment and Plan NEURO: Acute metabolic encephalopathy-improving Possible alcohol withdrawal - Morphine for pain control - Encephalopathy most likely secondary to severe sepsis - Continue Thiamine, MVI, folic acid RESP: Acute hypoxemic respiratory failure Acute COPD exacerbation Anterior airway Tobacco abuse - Emergently intubated and placed on mechanical ventilation 12/02/16, extubated successfully 12/03/16 - Continue with oxygen keep sat >92% - DuoNeb every 4 hours and when necessary - IV Solu-Medrol 40 q12 hr for COPD exacerbation - Broad spectrum ABX CV: Septic shock-resolved Lactic acidemia- Cleared NSTEMI - Monitor HR and BP keep MAP>65mmHg - Status post aggressive fluid resuscitation - s/p PCI to LCx by Dr. Krause on 11/30/16 - Continue ASA/Plavix/ - 2-D echo no veg, EF 50-55% GI: Invasive adenocarcinoma of the esophagus Liver cirrhosis - On Homey thickened diet - GI following- has biopsy proven invasive adenoca of esophagus - IV Protonix : Acute kidney failure/ATN - Monitor renal function , I/O's, electrolytes replacement per protocol. -IVF- Increase1/2 NS@125ml/hr. Will need Phos replacement today ID: Septic shock-resolved MSSA bacteremia Xdyszs-x-Nrpl infection - s/p removal of Hjcjzf-i-Wrqu - Catheter tip culture blood culture and wound culture also positive for MSSA - Sputum culture 12/02- [place] - Continue abx per ID (Ancef, Rifampin, Levaquin PO) will need abx for 6 weeks from port removal. Check BC x 2 sets today 12/06 BC: NGTD 12/05 BC: GPC / bottles HEME: Squamous cell carcinoma of the left parotid gland Esophageal adeno ca - Oncology Dr. Bell is following - Status post surgical resection for L parotid SCC. ENDO: Diabetes Hypothyroidism - Electrolyte replacement per protocol - SSI ( medium scale) add LEvemir 5units BID for glycemic control - Continue thyroid supplementation PROPH: - Bilateral lower extremity SCDs. - Lovenox/Protonix LINES: - Left subclavian central line placed 12/02/16, place peripheral IVs and d/c central line Level 3 PT/OT Dixie Navarrete MD Dec 07, 2016 08:20
--- NOTE | 2016-12-07 08:33 | HHI.GIFU ---
Subjective Remarks Lying in bed. Patient is confused. States he does not know why he is here. Jimbo abdominal pain. No complaints of dysphagia. (Mery Robles) Objective Vitals I&O Vital Signs Date Time Temp Pulse Resp B/P Pulse Ox O2 Delivery O2 Flow Rate FiO2 12/07/16 08:10 95 Nasal Cannula 3.00 12/07/16 06:00 80 12/07/16 04:00 85 12/07/16 04:00 98.3 85 14 132/61 92 12/07/16 02:00 85 12/07/16 01:23 20 12/07/16 00:00 98.5 84 20 138/62 95 12/07/16 00:00 84 12/06/16 22:00 83 12/06/16 20:00 82 12/06/16 20:00 98.1 82 16 145/64 95 12/06/16 19:56 95 Nasal Cannula 5.00 12/06/16 18:00 76 12/06/16 16:30 85 14 132/66 93 12/06/16 16:00 97.9 91 24 140/67 92 12/06/16 16:00 91 12/06/16 15:30 96 25 148/68 93 12/06/16 15:00 88 14 147/67 93 12/06/16 14:00 92 12/06/16 14:00 92 18 144/66 91 12/06/16 13:30 90 18 136/66 92 12/06/16 13:00 92 18 143/66 91 12/06/16 12:30 93 21 146/67 91 12/06/16 12:00 97.5 92 23 147/65 96 12/06/16 12:00 92 12/06/16 11:30 94 18 151/72 91 12/06/16 11:00 94 19 152/72 91 12/06/16 10:30 93 13 143/65 90 12/06/16 10:00 93 23 141/67 92 12/06/16 10:00 93 12/06/16 09:30 92 17 139/65 91 12/06/16 09:00 89 18 142/67 91 12/06/16 08:30 92 18 147/70 90 I/O 7/22/17 7/22/12/06/16 12/07/16 12/07/16 12/07/16 07:00 15:00 23:00 07:00 15:00 23:00 Intake Total 1437 ml 856 ml 669 ml Output Total 950 ml 1350 ml 1050 ml 750 ml Balance -950 ml 87 ml -194 ml -81 ml Intake Oral 640 ml 250 ml 100 ml IV Total 797 ml 606 ml 569 ml Output Urine Total 950 ml 1350 ml 1050 ml 750 ml # Bowel Movements 0 0 0 Laboratory Laboratory Tests Test 12/07/16 03:55 White Blood Count 6.8 Red Blood Count 2.93 Hemoglobin 8.1 Hematocrit 24.6 Mean Corpuscular Volume 84.0 Mean Corpuscular Hemoglobin 27.8 Mean Corpuscular Hemoglobin 33.1 Concent Red Cell Distribution Width 16.5 Platelet Count 139 Mean Platelet Volume 9.3 Neutrophils (%) (Auto) 86.8 Lymphocytes (%) (Auto) 9.8 Monocytes (%) (Auto) 3.2 Eosinophils (%) (Auto) 0.1 Basophils (%) (Auto) 0.1 Neutrophils # (Auto) 5.9 Lymphocytes # (Auto) 0.7 Monocytes # (Auto) 0.2 Eosinophils # (Auto) 0.0 Basophils # (Auto) 0.0 CBC Comment DIFF FINAL Differential Comment Sodium Level 151 Potassium Level 3.8 Chloride Level 112 Carbon Dioxide Level 32.4 Anion Gap 7 Blood Urea Nitrogen 36 Creatinine 0.90 Estimat Glomerular Filtration 86 Rate Random Glucose 212 Calcium Level 7.6 Phosphorus Level 2.2 Magnesium Level 1.8 Total Bilirubin 1.4 Aspartate Amino Transf 24 (AST/SGOT) Alanine Aminotransferase 33 (ALT/SGPT) Alkaline Phosphatase 81 Total Protein 6.0 Albumin 2.0 Date/Time Procedure Status Source Growth 12/06/16 12:00 Aerobic Blood Culture Received Blood Line Pending 12/06/16 12:00 Anaerobic Blood Culture Received Blood Line Pending 12/05/16 13:31 Aerobic Blood Culture - Preliminary Resulted Blood Peripheral Gram Positive Cocci 12/05/16 13:31 Anaerobic Blood Culture - Preliminary Resulted Blood Peripheral NO GROWTH IN 1 DAY 12/02/16 20:00 Wound Culture - Final Complete Catheter Tip Other Staphylococcus Aureus 12/02/16 15:25 Gram Stain - Final Complete Wound Chest 12/02/16 15:25 Wound Culture - Final Complete Staphylococcus Aureus Imaging Last Impressions Chest X-Ray 12/05/16 0600 Signed Impressions: Service Date/Time: Monday, December 05, 2016 03:30 - CONCLUSION: 1. Cardiomegaly and findings of vascular congestion without overt failure. There has been no significant change when compared to the prior exam. Bobby Matias MD Head CT 12/01/16 0000 Signed Impressions: Service Date/Time: Thursday, December 01, 2016 07:59 - CONCLUSION: 1. Questionable area of low attenuation left temporal lobe could be artifact versus less likely infarct. MRI may be warranted based on clinical history. 2. No midline shift or mass effect. 3. No intraparenchymal hemorrhage. Jagjit Tapia MD Brain MRI 12/01/16 0000 Signed Impressions: Service Date/Time: Thursday, December 01, 2016 12:07 - CONCLUSION: Normal examination. Barrett Rodriguez MD Abdomen X-Ray 12/01/16 0000 Signed Impressions: Service Date/Time: Thursday, December 01, 2016 16:48 - CONCLUSION: No evidence of obstruction. Feeding tube tip in the distal stomach. Barrett Rodriguez MD Abdomen/Pelvis CT 11/29/16 [id number] Signed Impressions: Service Date/Time: Wednesday, November 30, 2016 01:35 - CONCLUSION: 1. Markedly abnormal appearance of the distal esophagus consistent with the history of esophageal carcinoma. 2. Atherosclerotic calcifications of the aorta and iliac vessels. 3. Cirrhotic appearance to the liver with a mildly nodular contour present. Erik Simon MD CT Angiography 11/29/16 2348 Signed Impressions: Service Date/Time: Wednesday, November 30, 2016 01:35 - CONCLUSION: 1. No evidence for pulmonary embolism or pneumonia. 2. Abnormal appearance of the esophagus with and soft tissue consistent with the history of carcinoma. Erik Simon MD Physical Exam HEENT: Normocephalic; atraumatic; no jaundice. CHEST: Resp. even/unlabored. CARDIAC: RRR. ABDOMEN: Soft, mildly distended, nontender; no hepatosplenomegaly; bowel sounds are present in all four quadrants. EXTREMITIES: No clubbing, cyanosis, or edema. SKIN: Normal; no rash; no jaundice. DINKEY SKINNER: Lethargic, confused, oriented to self (Kueffler,Meryjosé miguel Zafar [employer]) Assessment and Plan Plan ASSESSMENT: - Esophageal cancer. PET Scan (10/28/16)----> negative examination of the head and neck, findings characteristic of esophageal neoplasm. S/P EGD/Colonoscopy (11/20/16)----> There was a long stricture i the mid esophagus and distal esophagus, multiple biopsies were performed, the mucosa of the stomach appeared normal, duodenal mucosa showed no abnormalities in the entire duodenum, retroflexed views revealed a small hiatal hernia; nine sessile polyps ranging from 4-12 mm in size were found at the cecum, in the ascending colon, descending colon, sigmoid colon, and rectum; polypectomy was performed using snare cautery, moderate diverticulosis was noted in the left colon, retroflexed views revealed internal grade I hemorrhoids, a digital rectal exam was performed and revealed no abnormalities of the anus. Pathology revealed invasive adenocarcinoma- distal esophagus, descending colon polyp and rectosigmoid polyp both benign hyperplastic colonic polyp, no adenomatous change or malignancy is seen. D/W Oncology, plan is for EUS when more stable- timing to be determined. Possibly next week. - Dysphagia. ST following, full liquids with honey consistency liquids - Constipation. (+) BM. Miralax - Abnormal imaging of the liver on CT scan, consistent with cirrhosis. Abdomen/ Pelvis CT (11/29/16)----> 1. Markedly abnormal appearance of the distal esophagus consistent with the history of esophageal carcinoma. 2. Atherosclerotic calcifications of the aorta and iliac vessels. 3. Cirrhotic appearance to the liver with a mildly nodular contour present. Unclear if he has hx of cirrhosis. There is mention of hx of HCV in EMR, but patient has had undetectable viral load as far back as 2001. Pt is now awake and able to tell me that he has a history of HCV and was successfully treated with Interferon/ribavirin in the past. Iron saturation 4.1%, Ferritin 124, Hepatitis C antibodies (+), viral load undetectable, TERRIE negative , ASMA < 20.0, AMA neg, Ceruloplasmin 40 and alpha 1 antitrypsin 298. Labs and imaging consistent with cirrhosis. Pt does not currently drink, but states that he was a heavy drinker in the past. T. Bili 1.4, AST 24, ALT 33, Alk Phosph 81. - Sepsis/Bacteremia/UTI. Urine and Bcx with Staphylococcus aureus. S/P removal of infusaport by GS (12/02). Cefepime - AMS, Acute metabolic encephalopathy. Head CT (12/01/16)-----> 1. Questionable area of low attenuation left temporal lobe could be artifact versus less likely infarct. MRI may be warranted based on clinical history. 2. No midline shift or mass effect. 3. No intraparenchymal hemorrhage. Brain MRI (12/01/16 )----> Normal examination. Lethargic, but awakens and follows commands. Confused. - Resp. Failure. Chest X-Ray (12/05/16)----> 1. Cardiomegaly and findings of vascular congestion without overt failure. There has been no significant change when compared to the prior exam. S/P Extubation on 12/03. O2 5L via n/c. Solumerol, nebs, - NSTEMI, CAD. S/P left heart catheterization (11/30/16) with Dr. Murillo and this revealed RCA 10% lesion mid segment, mild calcifications left main, LAD with calcification from it's proximal segment to its midsegment however, with no significant obstructive lesions, The LAD is giving off to a diagonal which has a 70% lesion in its ostial segment, left circumflex artery with a proximal clot thrombus, S/P percutaneous coronary intervention/bare metal stent to proximal left circumflex. ASA and Plavix, as well as aggressive optimization of coronary artery disease. 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 S/P mohs surgery by a goodwill ambassador in September of 2015 and shortly after this, developed a mass near the surgical area. S/P at [facility] with Dr. Valdovinos in June of 2016----> underwent extensive head and neck surgery involving a parotidectomy and radical neck dissection in September of 2016. Because of high risk features of local recurrence with perineural invasion and positive margins, it was recommended that he have concurrent chemoradiation therapy. He was evaluated by Dr. Cross for radiation and seen by Dr. Bell for oncology. PET Scan ()----> negative examination of the head and neck, findings characteristic of esophageal neoplasm. Direct visualization is recommended. - Hx HTN (now hypotensive), Hyperlipidemia, DM. per attending. PLAN: - Full liquids with honey thickened liquids- as recommended by ST. - Cont. PPI - Cont. Miralax - Monitor labs - EUS when more stable, ? next week vs. outpatient - Supportive care - Further recommendations to follow based on results of above Patient seen and examined by Dr. Kelly and myself and this note is written on her behalf (Mery Robles) Physician Comments seen, examined agree with above (Mai Kelly MD) Mery Robles Dec 07, 2016 08:32 Mai Kelly MD Dec 07, 2016 14:51
[2016-12-07] MEDS: INSULIN DETEMIR 100 UNITS/ML VIAL SQ SCH ×2 (09:00→21:28)
[2016-12-07] MEDS: CLOPIDOGREL 75 MG TAB PO SCH (09:36)
[2016-12-07] MEDS: THIAMINE HCL 100 MG TAB PO SCH (09:36)
[2016-12-07] MEDS: LEVOFLOXACIN 750 MG TAB PO SCH (09:36)
[2016-12-07] MEDS: DOCUSATE SODIUM 50 MG/SENNA 8.6 MG TAB PO SCH ×2 (09:36→21:34)
[2016-12-07] MEDS: ASPIRIN 81 MG CHEW TAB PO SCH (09:36)
[2016-12-07] MEDS: FOLIC ACID 1 MG TAB PO SCH (09:36)
[2016-12-07] MEDS: RIFAMPIN 150 MG CAP PO SCH ×2 (09:36→21:34)
[2016-12-07] MEDS: POLYETHYLENE GLYCOL 17 GM PKG PO SCH (09:36)
[2016-12-07] MEDS: MULTIVITAMIN TAB PO SCH (09:36)
[2016-12-07] MEDS: methylPREDNISolone SOD SUCC 125 MG/2 ML VIAL IV PUSH SCH ×2 (09:37→21:34)
[2016-12-07] MEDS: SODIUM CHLORIDE 0.9% FLUSH 10 ML FLUSH IV FLUSH SCH ×2 (09:37→21:32)
[2016-12-07] MEDS: ENOXAPARIN SODIUM 40 MG/0.4 ML SYRINGE SQ SCH (09:37)
[2016-12-07] MEDS: PANTOPRAZOLE SODIUM 40 MG VIAL IV PUSH SCH ×2 (09:37→21:32)
[2016-12-07] MEDS: SODIUM CHLOR 0.45% 1000 ML INJ 1,000 ML IV SCH ×3 (09:41→21:33)
--- NOTE | 2016-12-07 13:19 | HHI.IDPN ---
Subjective Subjective Remarks Patient is a 61-year-old male, currently lethargic, and unable to give any history. History has been obtained from the chart. 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 It was reportedly malignant as well. He presented to the hospital complaining of generalized weakness, abdominal pain and progressive swallowing difficulty over the last 3 weeks. Evaluation in the emergency room revealed abnormal EKG, and he underwent cardiac catheterization. He had non-ST KS, and had revascularization with stent placement of his left circumflex artery. Patient is spiked to 103, and there were 2 blood cultures done yesterday that are now reported as growing staph aureus. Patient currently has a Saxena catheter. There is a lot of sediment in his urine, and his urine culture is also showing staph aureus. CT of the abdomen and pelvis did not show any abnormality except the soft tissue mass in the esophagus. He had atherosclerosis of his vasculature. There was also evidence of possible liver cirrhosis. Patient is being evaluated for chemotherapy and radiation, but he has not been started. He had an Vevuyd-k-Ishz placement on November 12 on his right upper chest. Notes reviewed Temps ok On nasal O2 Last (+) BC 12/05 Doppler US pending Port removed 12/02 CXR 12/05, stable Antibiotics Ancef/rifampin Levaquin Lines Port - removed 12/02 LSC TLC - 12/02 Past Medical History Hypertension Hyperlipidemia CAD Diabetes 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 and he had good margins Recurrent squamous cell carcinoma on the left face, with involvement of the parotid gland, status post surgery at [facility] Recently found to have esophageal mass Past Surgical History Appendectomy Liver Biopsy Resection of a squamous cell carcinoma on the left cheek in 2011 Extensive surgery on the left face and neck for recurrent squamous cell carcinoma Port Placement November 12, 2016 Allergies: Coded Allergies: Penicillin (Verified Allergy, Mild, Hives, 11/12/16) Objective . Vital Signs Date Time Temp Pulse Resp B/P Pulse Ox O2 Delivery O2 Flow Rate FiO2 12/07/16 12:30 91 20 143/64 92 12/07/16 12:00 98.8 90 18 152/68 93 12/07/16 11:00 91 18 147/70 95 12/07/16 10:30 89 16 145/67 96 12/07/16 10:00 87 17 135/63 95 12/07/16 09:30 84 15 130/62 94 12/07/16 09:00 85 15 135/63 92 12/07/16 08:30 88 16 152/69 92 12/07/16 08:10 95 Nasal Cannula 3.00 12/07/16 08:00 98.0 85 17 151/69 93 12/07/16 08:00 85 12/07/16 07:30 80 13 143/66 94 12/07/16 07:00 87 20 146/67 93 12/07/16 06:00 80 12/07/16 04:00 85 12/07/16 04:00 98.3 85 14 132/61 92 12/07/16 02:00 85 12/07/16 01:23 20 12/07/16 00:00 98.5 84 20 138/62 95 12/07/16 00:00 84 12/06/16 22:00 83 12/06/16 20:00 82 12/06/16 20:00 98.1 82 16 145/64 95 12/06/16 19:56 95 Nasal Cannula 5.00 12/06/16 18:00 76 12/06/16 16:30 85 14 132/66 93 12/06/16 16:00 97.9 91 24 140/67 92 12/06/16 16:00 91 12/06/16 15:30 96 25 148/68 93 12/06/16 15:00 88 14 147/67 93 12/06/16 14:00 92 12/06/16 14:00 92 18 144/66 91 12/06/16 13:30 90 18 136/66 92 12/06/16 12/06/16 12/07/16 15:00 23:00 07:00 Intake Total 1437 ml 856 ml 669 ml Output Total 1350 ml 1050 ml 750 ml Balance 87 ml -194 ml -81 ml Intake Oral 640 ml 250 ml 100 ml IV Total 797 ml 606 ml 569 ml Output Urine Total 1350 ml 1050 ml 750 ml # Bowel Movements 0 0 0 . Laboratory Tests Test 12/06/16 12/07/16 03:20 03:55 White Blood Count 8.3 TH/MM3 6.8 TH/MM3 Red Blood Count 3.22 MIL/MM3 2.93 MIL/MM3 Hemoglobin 9.0 GM/DL 8.1 GM/DL Hematocrit 27.2 % 24.6 % Mean Corpuscular Volume 84.5 FL 84.0 FL Mean Corpuscular Hemoglobin 27.9 PG 27.8 PG Mean Corpuscular Hemoglobin 33.1 % 33.1 % Concent Red Cell Distribution Width 16.7 % 16.5 % Platelet Count 146 TH/MM3 139 TH/MM3 Mean Platelet Volume 9.3 FL 9.3 FL Neutrophils (%) (Auto) 92.0 % 86.8 % Lymphocytes (%) (Auto) 4.8 % 9.8 % Monocytes (%) (Auto) 3.1 % 3.2 % Eosinophils (%) (Auto) 0.0 % 0.1 % Basophils (%) (Auto) 0.1 % 0.1 % Neutrophils # (Auto) 7.6 TH/MM3 5.9 TH/MM3 Lymphocytes # (Auto) 0.4 TH/MM3 0.7 TH/MM3 Monocytes # (Auto) 0.3 TH/MM3 0.2 TH/MM3 Eosinophils # (Auto) 0.0 TH/MM3 0.0 TH/MM3 Basophils # (Auto) 0.0 TH/MM3 0.0 TH/MM3 CBC Comment DIFF FINAL DIFF FINAL Differential Comment Laboratory Tests Test 12/06/16 12/07/16 03:20 03:55 Sodium Level 151 MEQ/L 151 MEQ/L Potassium Level 4.1 MEQ/L 3.8 MEQ/L Chloride Level 111 MEQ/L 112 MEQ/L Carbon Dioxide Level 36.1 MEQ/L 32.4 MEQ/L Anion Gap 4 MEQ/L 7 MEQ/L Blood Urea Nitrogen 43 MG/DL 36 MG/DL Creatinine 0.86 MG/DL 0.90 MG/DL Estimat Glomerular Filtration 91 ML/MIN 86 ML/MIN Rate Random Glucose 219 MG/DL 212 MG/DL Calcium Level 7.5 MG/DL 7.6 MG/DL Phosphorus Level 2.0 MG/DL 2.2 MG/DL Magnesium Level 2.0 MG/DL 1.8 MG/DL Total Bilirubin 1.0 MG/DL 1.4 MG/DL Aspartate Amino Transf 41 U/L 24 U/L (AST/SGOT) Alanine Aminotransferase 44 U/L 33 U/L (ALT/SGPT) Alkaline Phosphatase 84 U/L 81 U/L Total Protein 6.0 GM/DL 6.0 GM/DL Albumin 2.1 GM/DL 2.0 GM/DL Microbiology Date/Time Procedure Status Source Growth 12/05/16 13:27 Aerobic Blood Culture - Preliminary Resulted Blood Peripheral NO GROWTH IN 2 DAYS 12/05/16 13:27 Anaerobic Blood Culture - Preliminary Resulted Blood Peripheral NO GROWTH IN 2 DAYS 12/05/16 13:31 Aerobic Blood Culture - Final Resulted Blood Peripheral Staphylococcus Aureus 12/05/16 13:31 Anaerobic Blood Culture - Preliminary Resulted Blood Peripheral NO GROWTH IN 2 DAYS 12/06/16 12:00 Aerobic Blood Culture - Preliminary Resulted Blood Line NO GROWTH IN 1 DAY 12/06/16 12:00 Anaerobic Blood Culture - Preliminary Resulted Blood Line NO GROWTH IN 1 DAY 12/07/16 08:02 Aerobic Blood Culture Received Blood Peripheral Pending 12/07/16 08:02 Anaerobic Blood Culture Received Blood Peripheral Pending Imaging Chest X-Ray 12/05/16 0600 Signed Impressions: Service Date/Time: Monday, December 05, 2016 03:30 - CONCLUSION: 1. Cardiomegaly and findings of vascular congestion without overt failure. There has been no significant change when compared to the prior exam. Bobby Matias MD Head CT 12/01/16 0000 Signed Impressions: Service Date/Time: Thursday, December 01, 2016 07:59 - CONCLUSION: 1. Questionable area of low attenuation left temporal lobe could be artifact versus less likely infarct. MRI may be warranted based on clinical history. 2. No midline shift or mass effect. 3. No intraparenchymal hemorrhage. Jagjit Tapia MD Brain MRI 12/01/16 0000 Signed Impressions: Service Date/Time: Thursday, December 01, 2016 12:07 - CONCLUSION: Normal examination. Barrett Rodriguez MD Abdomen X-Ray 12/01/16 0000 Signed Impressions: Service Date/Time: Thursday, December 01, 2016 16:48 - CONCLUSION: No evidence of obstruction. Feeding tube tip in the distal stomach. Barrett Rodriguez MD Abdomen/Pelvis CT 11/29/16 1165 Signed Impressions: Service Date/Time: Wednesday, November 30, 2016 01:35 - CONCLUSION: 1. Markedly abnormal appearance of the distal esophagus consistent with the history of esophageal carcinoma. 2. Atherosclerotic calcifications of the aorta and iliac vessels. 3. Cirrhotic appearance to the liver with a mildly nodular contour present. Erik Simon MD CT Angiography 11/29/16 2348 Signed Impressions: Service Date/Time: Wednesday, November 30, 2016 01:35 - CONCLUSION: 1. No evidence for pulmonary embolism or pneumonia. 2. Abnormal appearance of the esophagus with and soft tissue consistent with the history of carcinoma. Erik Simon MD Chest X-Ray 12/03/16 0600 Signed Impressions: Service Date/Time: Saturday, December 03, 2016 04:43 - CONCLUSION: Increasing consolidation in the left lower lung. Bilateral interstitial changes. Niko Wilcox MD Chest X-Ray 12/03/16 0000 Signed Impressions: Service Date/Time: Saturday, December 03, 2016 07:48 - CONCLUSION: 1. Persistent left retrocardiac density and slight interstitial prominence. Jagjit Tapia MD Chest X-Ray 12/02/16 0000 Signed Impressions: Service Date/Time: Friday, December 02, 2016 15:55 - CONCLUSION: Normal examination with endotracheal tube and central lines in good position. Barrett Rodriguez MD Chest X-Ray 12/02/16 0000 Signed Impressions: Service Date/Time: Friday, December 02, 2016 08:24 - CONCLUSION: Mild perihilar vascular congestion. Endotracheal tube is in good position Barrett Rodriguez MD Chest X-Ray 12/02/16 0000 Signed Impressions: Service Date/Time: Friday, December 02, 2016 06:53 - CONCLUSION: Underinflated examination with atelectasis at the lung bases. Given the technique, no acute abnormality or significant interval change is appreciated. Washington Marroquin MD Physical Exam GENERAL: Awake, following commands, NAD SKIN: Warm and dry. No generalized rash, no ecchymoses. Has embolic lesions in his L big toe no change EYES: Petechia resolved, no hemorrhage. Extraocular movements full and intact. [place]. No scleral icterus. No injection or drainage. EARS, NOSE AND THROAT: Nose without bleeding or purulent nasal discharge. No sinus tenderness. Orally intubated NECK: Trachea midline. Supple and not tender, no meningeal signs CARDIOVASCULAR: Regular rate and rhythm. No murmurs, rubs or gallops heard. RESPIRATORY: Coarse BS bilaterally. Previous port with intact dressing ABDOMEN: Soft, mildly distended. Mild diffuse tenderness, no guarding. Bowel sounds present and normoactive. No rebound. No organomegaly. EXTREMITIES: No clubbing, cyanosis. Has mild pedal edema. No calf tenderness. Well perfused and warm. NEUROLOGICAL: Awake and following commands, slow to respond PSYCHIATRIC: Cooperative LINE: Has new line LSC, site ok. Previous port site with intact dressing. : Saxena in place Assessment & Plan Remarks IMPRESSION Sepsis, with shock has MSSA due to port infection - S/P removal port 12/02 - has new (+) BC Respiratory failure, has L base infiltrate, and GNR in sputum (+) UC with Staph aureus, due to current bacteremia Recurrent squamous cell CA Esophageal CA Lethargy and SOB due to sepsis, better - has acidosis Renal insufficiency, due to sepsis and shock, better RECOMMENDATION Follow new C/S Continue Rifampin, for synergy vs MSSA - follow LFT Continue Levaquin and give 7 days for GNR in sputum Continue IV Ancef He will need 6 weeks IV Abx from date of port removal/last (+) BC for MSSA sepsis Follow temps Monitor progress Carola Nassar MD Dec 07, 2016 13:19
[2016-12-07] MEDS ORDERED: METHYLNALTREXONE BROMIDE 12 MG/0.6 ML VIAL SQ ONE (15:00)
[2016-12-08] VITALS (14 sets, daily range): BP systolic 134–149; BP diastolic 66–71; PULSE 83–145; RESP 15–21; TEMP 98.1–98.9; O2SAT 94–100
[2016-12-08] MEDS: RESP: ALBUTEROL 2.5 MG/IPRATROPIUM 0.5 MG NEB (SCH) NEB ×6 (00:04→20:06)
[2016-12-08] MEDS: ceFAZolin 2 GM PREMIX 50 ML IV SCH ×3 (00:35→18:17)
[2016-12-08] MEDS: INSULIN ASPART SUPPLEMENTAL SCALE SQ SCH ×5 (00:36→21:35)
[2016-12-08 04:38] LABS: AUTOMATED NEUTROPHIL # 6.1 TH/MM3 (1.8-7.7); BASOPHIL % 0.2 % (0.0-2.0); EOSINOPHIL % 0.3 % (0.0-4.0); HEMATOCRIT 26.5 % (39.0-51.0); LYMPH % 11.7 % (9.0-44.0); LYMPHOCYTE # 0.8 TH/MM3 (1.0-4.8); MEAN CELL VOLUME 85.8 FL (80.0-100.0); MEAN CORPUSCULAR HEMOGLOBIN 27.6 PG (27.0-34.0); MEAN CORPUSCULAR HGB CONC 32.1 % (32.0-36.0); MONO % 3.1 % (0.0-8.0); NEUT % 84.7 % (16.0-70.0); PLATELET COUNT 149 TH/MM3 (150-450); RED BLOOD COUNT 3.08 MIL/MM3 (4.50-5.90); RED CELL DISTRIBUTION WIDTH 16.6 % (11.6-17.2); WHITE BLOOD COUNT 7.2 TH/MM3 (4.0-11.0)
[2016-12-08 04:42] LABS: HEMO FLAGS AUTO DIFF
[2016-12-08 05:01] LABS: MAGNESIUM 1.8 MG/DL (1.5-2.5); POTASSIUM 4.1 MEQ/L (3.5-5.1)
[2016-12-08 07:12] LABS: OVALOCYTES 1+ (NORMAL); PLATELET ESTIMATE SMEAR NORMAL (NORMAL); PLATELET MORPHOLOGY NORMAL (NORMAL); SCAN/DIFF AUTO DIFF CONFIRMED
[2016-12-08] MEDS: DOCUSATE SODIUM 50 MG/SENNA 8.6 MG TAB PO SCH ×2 (09:00→21:30)
[2016-12-08] MEDS: RIFAMPIN 150 MG CAP PO SCH ×2 (09:00→21:30)
[2016-12-08] MEDS: INSULIN DETEMIR 100 UNITS/ML VIAL SQ SCH ×2 (09:00→21:38)
[2016-12-08] MEDS: SODIUM CHLORIDE 0.9% FLUSH 10 ML FLUSH IV FLUSH SCH ×2 (09:29→21:33)
[2016-12-08] MEDS: CLOPIDOGREL 75 MG TAB PO SCH (09:29)
[2016-12-08] MEDS: POLYETHYLENE GLYCOL 17 GM PKG PO SCH (09:29)
[2016-12-08] MEDS: FOLIC ACID 1 MG TAB PO SCH (09:29)
[2016-12-08] MEDS: CHLORHEXIDINE 0.12% (ORAL KIT) 15 ML CUP MT SCH ×2 (09:31→20:00)
[2016-12-08] MEDS: MULTIVITAMIN TAB PO SCH (09:32)
[2016-12-08] MEDS: ASPIRIN 81 MG CHEW TAB PO SCH (09:32)
[2016-12-08] MEDS: PANTOPRAZOLE SODIUM 40 MG VIAL IV PUSH SCH ×2 (09:32→21:29)
[2016-12-08] MEDS: methylPREDNISolone SOD SUCC 125 MG/2 ML VIAL IV PUSH SCH ×2 (09:32→21:30)
[2016-12-08] MEDS: ENOXAPARIN SODIUM 40 MG/0.4 ML SYRINGE SQ SCH (09:33)
[2016-12-08] MEDS: THIAMINE HCL 100 MG TAB PO SCH (09:33)
[2016-12-08] MEDS: LEVOFLOXACIN 750 MG TAB PO SCH (09:46)
--- NOTE | 2016-12-08 10:23 | HHI.CCPN ---
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 He was hypotensive, febrile up to 101 and received IV fluid resuscitation with improvement in his blood pressure. EKG showed ST-T wave changes, and troponin was elevated and peaked at 17.1. The patient has been evaluated by cardiology for NSTEMI. He underwent PCI with bare metal stent to LCx by Dr. Krause on 11/30/16. The patient had a CT of the abdomen and pelvis on admission which showed marked soft tissue thickening in the distal esophagus concerning for esophageal cancer. The patient was also noted to have liver cirrhosis and mild splenomegaly. Patient has a history of alcohol intake but according to the girlfriend has not had alcoholic drinks for several months. CTA no evidence of pulmonary embolism or pneumonia. Critical care was consulted 12/01 for altered mentation, persistent fever, MSSA bacteremia and worsening sepsis. Apparently patient was agitated overnight requiring restraints. He also sustained a fall when he tried to climb out of the bed. CT of the head was negative except for a possible artifact left temporal region. An MRI which was done today came back negative. On my evaluation the ICU patient was very lethargic and tachypneic breathing approximately 35-40. ABG showed respiratory alkalosis. His altered mentation is most likely secondary to severe sepsis, and possible alcohol withdrawal. Blood cultures 08/19 growing MSSA, lactic acid 3.6. SUBJ 12/02: Patient found to be tachypneic today, and in severe respiratory distress. His stat breathing treatment and IV Solu-Medrol did not improve respiratory status. Patient was emergently intubated and placed on mechanical ventilation for respiratory extremis. (Unable to visualize cords with direct laryngoscopy. With Glidescope #4 blade Grade 2 view, easy intubation). I'm told by GI that patient had workup for esophageal mass as outpatient which invasive adenocarcinoma of distal esophagus 12/03: Remains critically ill in septic shock on 2 pressors, but trending in the right direction. Levophed down from 20 mcg/min to 10 mcg/m today. Fever trending down after removal of the Ghawud-e-Gouh. Possible was expressed from about 1 inch superior to the Mkpkvd-k-Wkks along the track of the catheter, Dr. Rich was emergently consulted for removal of the port which he did yesterday. Urine output remains adequate renal function though slightly worsened 12/04: Rapid clinical improvement after the Wvrigv-q-Qzbt was removed. Tip culture and wound culture also with MSSA. Currently remains off all pressors, extubated yesterday. Oriented to person and somewhat to place. CXR showing left lower lobe airspace disease, GNR in sputum 12/06 No events overnight. Awake and alert. On 8L simple mask. Afebrile. 12/07 Patient is down to 4L oxygen with good sats. Afebrile. 12/08 No events overnight. Afebrile. On 3L oxygen with good sats. Objective Vital Signs Date Time Temp Pulse Resp B/P Pulse Ox O2 Delivery O2 Flow Rate FiO2 12/08/16 08:08 96 Nasal Cannula 3.00 12/08/16 06:00 90 12/08/16 04:00 98.2 18 146/70 Intake and Output 12/07/16 12/07/16 12/07/16 07:59 15:59 23:59 Intake Total 669 ml 1524 ml 971 ml Output Total 750 ml 800 ml 600 ml Balance -81 ml 724 ml 371 ml Result Diagram: 12/08/16 0332 12/08/16 0332 Other Results Laboratory Tests Test 12/08/16 03:32 White Blood Count 7.2 TH/MM3 Red Blood Count 3.08 MIL/MM3 Hemoglobin 8.5 GM/DL Hematocrit 26.5 % Mean Corpuscular Volume 85.8 FL Mean Corpuscular Hemoglobin 27.6 PG Mean Corpuscular Hemoglobin 32.1 % Concent Red Cell Distribution Width 16.6 % Platelet Count 149 TH/MM3 Mean Platelet Volume 8.9 FL Neutrophils (%) (Auto) 84.7 % Lymphocytes (%) (Auto) 11.7 % Monocytes (%) (Auto) 3.1 % Eosinophils (%) (Auto) 0.3 % Basophils (%) (Auto) 0.2 % Neutrophils # (Auto) 6.1 TH/MM3 Lymphocytes # (Auto) 0.8 TH/MM3 Monocytes # (Auto) 0.2 TH/MM3 Eosinophils # (Auto) 0.0 TH/MM3 Basophils # (Auto) 0.0 TH/MM3 CBC Comment AUTO DIFF Differential Comment AUTO DIFF CONFIRMED Platelet Estimate NORMAL Platelet Morphology Comment NORMAL Ovalocytes 1+ Sodium Level 145 MEQ/L Potassium Level 4.1 MEQ/L Chloride Level 111 MEQ/L Carbon Dioxide Level 29.0 MEQ/L Anion Gap 5 MEQ/L Blood Urea Nitrogen 32 MG/DL Creatinine 0.87 MG/DL Estimat Glomerular Filtration 90 ML/MIN Rate Random Glucose 191 MG/DL Calcium Level 7.9 MG/DL Phosphorus Level 2.5 MG/DL Magnesium Level 1.8 MG/DL Imaging Last Impressions Chest X-Ray 12/05/16 0600 Signed Impressions: Service Date/Time: Monday, December 05, 2016 03:30 - CONCLUSION: 1. Cardiomegaly and findings of vascular congestion without overt failure. There has been no significant change when compared to the prior exam. Bobby Matias MD Head CT 12/01/16 0000 Signed Impressions: Service Date/Time: Thursday, December 01, 2016 07:59 - CONCLUSION: 1. Questionable area of low attenuation left temporal lobe could be artifact versus less likely infarct. MRI may be warranted based on clinical history. 2. No midline shift or mass effect. 3. No intraparenchymal hemorrhage. Jagjit Tapia MD Brain MRI 12/01/16 0000 Signed Impressions: Service Date/Time: Thursday, December 01, 2016 12:07 - CONCLUSION: Normal examination. Barrett Rodriguez MD Abdomen X-Ray 12/01/16 0000 Signed Impressions: Service Date/Time: Thursday, December 01, 2016 16:48 - CONCLUSION: No evidence of obstruction. Feeding tube tip in the distal stomach. Barrett Rodriguez MD Abdomen/Pelvis CT 11/29/16 2356 Signed Impressions: Service Date/Time: Wednesday, November 30, 2016 01:35 - CONCLUSION: 1. Markedly abnormal appearance of the distal esophagus consistent with the history of esophageal carcinoma. 2. Atherosclerotic calcifications of the aorta and iliac vessels. 3. Cirrhotic appearance to the liver with a mildly nodular contour present. Erik Simon MD CT Angiography 11/29/16 2348 Signed Impressions: Service Date/Time: Darryl, November 30, 2016 01:35 - CONCLUSION: 1. No evidence for pulmonary embolism or pneumonia. 2. Abnormal appearance of the esophagus with and soft tissue consistent with the history of carcinoma. Erik Simon MD Objective Remarks GENERAL: Patient is 61 yo lying in be din NAD SKIN: Warm and dry. HEAD: Normocephalic. EYES: No scleral icterus. No injection or drainage. NECK: Supple, trachea midline. No JVD or lymphadenopathy. CARDIOVASCULAR: Regular rate and rhythm without murmurs, gallops, or rubs. RESPIRATORY: Breath sounds equal bilaterally. No accessory muscle use. GASTROINTESTINAL: Abdomen soft, non-tender, nondistended. MUSCULOSKELETAL: No cyanosis, or edema. Neuro: Awake and alert A/P Assessment and Plan NEURO: Acute metabolic encephalopathy-improving Possible alcohol withdrawal - Morphine for pain control - Encephalopathy most likely secondary to severe sepsis - Continue Thiamine, MVI, folic acid RESP: Acute hypoxemic respiratory failure Acute COPD exacerbation Anterior airway Tobacco abuse - Emergently intubated and placed on mechanical ventilation 12/02/16, extubated successfully 12/03/16 - Continue with oxygen keep sat >92% - DuoNeb every 4 hours and when necessary - IV Solu-Medrol 40 q12 hr for COPD exacerbation - Broad spectrum ABX CV: Septic shock-resolved Lactic acidemia- Cleared NSTEMI - Place on Lopressor 50mg Q12 -Monitor HR and BP keep MAP>65mmHg - Status post aggressive fluid resuscitation - s/p PCI to LCx by Dr. Krause on 11/30/16 - Continue ASA/Plavix/ - 2-D echo no veg, EF 50-55% GI: Invasive adenocarcinoma of the esophagus Liver cirrhosis - On Honey thickened diet - GI following- has biopsy proven invasive adenoca of esophagus - IV Protonix : Acute kidney failure/ATN - Monitor renal function , I/O's, electrolytes replacement per protocol. d/c IVF ID: Septic shock-resolved MSSA bacteremia Uzpjgz-a-Kcab infection - s/p removal of Bihygl-i-Bmha - Catheter tip culture blood culture and wound culture also positive for MSSA - Sputum culture 12/02- [place]ella - Continue abx per ID (Ancef, Rifampin, Levaquin PO) will need abx for 6 weeks from port removal. 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 Bell is following - Status post surgical resection for L parotid SCC. ENDO: Diabetes Hypothyroidism - Electrolyte replacement per protocol - SSI ( medium scale) Levemir 5units BID for glycemic control - Continue thyroid supplementation PROPH: - Bilateral lower extremity SCDs. - Lovenox/Protonix LINES: - Peripheral IVs Will sign off and transfer care to [facility] Level 3 PT/OT Dixie Navarrete MD Dec 08, 2016 10:22
--- NOTE | 2016-12-08 13:00 | HHI.GIFU ---
Subjective Remarks Patient is rested in bed, denies nausea, vomiting or abd pain, doing good on full liquid diet. (Cheikh Maeangie CORNEJO) Objective Vitals I&O Vital Signs Date Time Temp Pulse Resp B/P Pulse Ox O2 Delivery O2 Flow Rate FiO2 12/08/16 08:08 96 Nasal Cannula 3.00 12/08/16 08:00 86 12/08/16 08:00 98.1 86 15 149/71 95 12/08/16 06:00 90 12/08/16 04:00 98.2 92 18 146/70 100 12/08/16 04:00 92 12/08/16 02:00 83 12/08/16 00:00 98.4 84 18 138/66 94 12/08/16 00:00 84 12/07/16 22:00 87 12/07/16 20:00 97.6 97 16 141/67 92 12/07/16 20:00 97 12/07/16 19:25 94 Nasal Cannula 3.00 12/07/16 18:00 85 12/07/16 17:00 87 19 143/63 93 12/07/16 16:00 91 12/07/16 16:00 98.2 91 19 140/65 92 12/07/16 15:00 87 13 135/63 94 12/07/16 14:00 92 21 156/70 94 12/07/16 14:00 92 12/07/16 13:31 93 26 159/90 93 12/07/16 13:00 89 19 147/65 92 I/O 12/07/16 12/07/16 12/07/16 12/08/16 12/08/16 12/08/16 06:59 14:59 22:59 06:59 14:59 22:59 Intake Total 669 ml 1524 ml 971 ml 731 ml Output Total 750 ml 800 ml 600 ml 400 ml Balance -81 ml 724 ml 371 ml 331 ml Intake Oral 100 ml 664 ml IV Total 569 ml 860 ml 971 ml 731 ml Output Urine Total 750 ml 800 ml 600 ml 400 ml # Bowel Movements 0 0 Laboratory Laboratory Tests Test 12/08/16 03:32 White Blood Count 7.2 Red Blood Count 3.08 Hemoglobin 8.5 Hematocrit 26.5 Mean Corpuscular Volume 85.8 Mean Corpuscular Hemoglobin 27.6 Mean Corpuscular Hemoglobin 32.1 Concent Red Cell Distribution Width 16.6 Platelet Count 149 Mean Platelet Volume 8.9 Neutrophils (%) (Auto) 84.7 Lymphocytes (%) (Auto) 11.7 Monocytes (%) (Auto) 3.1 Eosinophils (%) (Auto) 0.3 Basophils (%) (Auto) 0.2 Neutrophils # (Auto) 6.1 Lymphocytes # (Auto) 0.8 Monocytes # (Auto) 0.2 Eosinophils # (Auto) 0.0 Basophils # (Auto) 0.0 CBC Comment AUTO DIFF Differential Comment AUTO DIFF CONFIRMED Platelet Estimate NORMAL Platelet Morphology Comment NORMAL Ovalocytes 1+ Sodium Level 145 Potassium Level 4.1 Chloride Level 111 Carbon Dioxide Level 29.0 Anion Gap 5 Blood Urea Nitrogen 32 Creatinine 0.87 Estimat Glomerular Filtration 90 Rate Random Glucose 191 Calcium Level 7.9 Phosphorus Level 2.5 Magnesium Level 1.8 Date/Time Procedure Status Source Growth 12/08/16 03:32 Aerobic Blood Culture Received Blood Peripheral Pending 12/08/16 03:32 Anaerobic Blood Culture Received Blood Peripheral Pending 12/07/16 16:42 Aerobic Blood Culture - Preliminary Resulted Blood Peripheral NO GROWTH IN 1 DAY 12/07/16 16:42 Anaerobic Blood Culture - Preliminary Resulted Blood Peripheral NO GROWTH IN 1 DAY 12/05/16 13:31 Aerobic Blood Culture - Final Resulted Blood Peripheral Staphylococcus Aureus 12/05/16 13:31 Anaerobic Blood Culture - Preliminary Resulted Blood Peripheral NO GROWTH IN 3 DAYS Imaging Last Impressions Chest X-Ray 12/05/16 0600 Signed Impressions: Service Date/Time: Monday, December 05, 2016 03:30 - CONCLUSION: 1. Cardiomegaly and findings of vascular congestion without overt failure. There has been no significant change when compared to the prior exam. Bobby Matias MD Head CT 12/01/16 0000 Signed Impressions: Service Date/Time: Thursday, December 01, 2016 07:59 - CONCLUSION: 1. Questionable area of low attenuation left temporal lobe could be artifact versus less likely infarct. MRI may be warranted based on clinical history. 2. No midline shift or mass effect. 3. No intraparenchymal hemorrhage. Jagjit Tapia MD Brain MRI 12/01/16 0000 Signed Impressions: Service Date/Time: Thursday, December 01, 2016 12:07 - CONCLUSION: Normal examination. Barrett Rodriguez MD Abdomen X-Ray 12/01/16 0000 Signed Impressions: Service Date/Time: Thursday, December 01, 2016 16:48 - CONCLUSION: No evidence of obstruction. Feeding tube tip in the distal stomach. Barrett Rodriguez MD Abdomen/Pelvis CT 11/29/16 2356 Signed Impressions: Service Date/Time: Wednesday, November 30, 2016 01:35 - CONCLUSION: 1. Markedly abnormal appearance of the distal esophagus consistent with the history of esophageal carcinoma. 2. Atherosclerotic calcifications of the aorta and iliac vessels. 3. Cirrhotic appearance to the liver with a mildly nodular contour present. Erik Simon MD CT Angiography 11/29/16 2348 Signed Impressions: Service Date/Time: Wednesday, November 30, 2016 01:35 - CONCLUSION: 1. No evidence for pulmonary embolism or pneumonia. 2. Abnormal appearance of the esophagus with and soft tissue consistent with the history of carcinoma. Erik Simon MD Physical Exam HEENT: Normocephalic; atraumatic; no jaundice. CHEST: Resp. even/unlabored. CARDIAC: RRR. ABDOMEN: Soft, mildly distended, nontender; no hepatosplenomegaly; bowel sounds are present in all four quadrants. EXTREMITIES: No clubbing, cyanosis, or edema. SKIN: Normal; no rash; no jaundice. NEWS BROADCASTER: Alert and oriented (Karen Mae) Assessment and Plan Plan ASSESSMENT: - Esophageal cancer. PET Scan (10/28/16)----> negative examination of the head and neck, findings characteristic of esophageal neoplasm. S/P EGD/Colonoscopy (11/20/16)----> There was a long stricture i the mid esophagus and distal esophagus, multiple biopsies were performed, the mucosa of the stomach appeared normal, duodenal mucosa showed no abnormalities in the entire duodenum, retroflexed views revealed a small hiatal hernia; nine sessile polyps ranging from 4-12 mm in size were found at the cecum, in the ascending colon, descending colon, sigmoid colon, and rectum; polypectomy was performed using snare cautery, moderate diverticulosis was noted in the left colon, retroflexed views revealed internal grade I hemorrhoids, a digital rectal exam was performed and revealed no abnormalities of the anus. Pathology revealed invasive adenocarcinoma- distal esophagus, descending colon polyp and rectosigmoid polyp both benign hyperplastic colonic polyp, no adenomatous change or malignancy is seen. D/W Oncology, plan is for EUS when more stable- timing to be determined. Possibly next week. - Dysphagia. ST following, full liquids with honey consistency liquids - Constipation. (+) BM. Miralax - Abnormal imaging of the liver on CT scan, consistent with cirrhosis. Abdomen/ Pelvis CT (11/29/16)----> 1. Markedly abnormal appearance of the distal esophagus consistent with the history of esophageal carcinoma. 2. Atherosclerotic calcifications of the aorta and iliac vessels. 3. Cirrhotic appearance to the liver with a mildly nodular contour present. Unclear if he has hx of cirrhosis. There is mention of hx of HCV in EMR, but patient has had undetectable viral load as far back as 2001. Pt is now awake and able to tell me that he has a history of HCV and was successfully treated with Interferon/ribavirin in the past. Iron saturation 4.1%, Ferritin 124, Hepatitis C antibodies (+), viral load undetectable, TERRIE negative , ASMA < 20.0, AMA neg, Ceruloplasmin 40 and alpha 1 antitrypsin 298. Labs and imaging consistent with cirrhosis. Pt does not currently drink, but states that he was a heavy drinker in the past. T. Bili 1.4, AST 24, ALT 33, Alk Phosph 81. - Sepsis/Bacteremia/UTI. Urine and Bcx with Staphylococcus aureus. S/P removal of infusaport by GS (12/02). Cefepime - AMS, Acute metabolic encephalopathy. Head CT (12/01/16)-----> 1. Questionable area of low attenuation left temporal lobe could be artifact versus less likely infarct. MRI may be warranted based on clinical history. 2. No midline shift or mass effect. 3. No intraparenchymal hemorrhage. Brain MRI (12/01/16 )----> Normal examination. Lethargic, but awakens and follows commands. Confused. - Resp. Failure. Chest X-Ray (12/05/16)----> 1. Cardiomegaly and findings of vascular congestion without overt failure. There has been no significant change when compared to the prior exam. S/P Extubation on 12/03. O2 5L via n/c. Solumerol, nebs, - NSTEMI, CAD. S/P left heart catheterization (11/30/16) with Dr. Murillo and this revealed RCA 10% lesion mid segment, mild calcifications left main, LAD with calcification from it's proximal segment to its midsegment however, with no significant obstructive lesions, The LAD is giving off to a diagonal which has a 70% lesion in its ostial segment, left circumflex artery with a proximal clot thrombus, S/P percutaneous coronary intervention/bare metal stent to proximal left circumflex. ASA and Plavix, as well as aggressive optimization of coronary artery disease. 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 S/P mohs surgery by a agriculture worker in September of 2015 and shortly after this, developed a mass near the surgical area. S/P at [facility] with Dr. Valdovinos in June of 2016----> underwent extensive head and neck surgery involving a parotidectomy and radical neck dissection in September of 2016. Because of high risk features of local recurrence with perineural invasion and positive margins, it was recommended that he have concurrent chemoradiation therapy. He was evaluated by Dr. Cross for radiation and seen by Dr. Bell for oncology. PET Scan ()----> negative examination of the head and neck, findings characteristic of esophageal neoplasm. Direct visualization is recommended. - Hx HTN (now hypotensive), Hyperlipidemia, DM. per attending. 12-08-16- Patient on 3 L of O2, tolerating fulls okay, no n/v or abd pain. PLAN: - Full liquids with honey thickened liquids- as recommended by ST. - EUS when more stable - Cont. PPI - Cont. Miralax - Monitor labs - Supportive care - Further recommendations to follow based on results of above Patient seen and examined by Dr. Tejeda and myself and this note is written on his behalf (Karen Mae) Physician Comments Patient seen and examined Agree with above Continue with current supportive care Monitor labs The plan would be to proceed with endoscopic ultrasound when patient is more stable (Ortiz Tejeda MD) Karen Mae Dec 08, 2016 13:00 Ortiz Tejeda MD Dec 08, 2016 22:02 Ortiz Tejeda MD Dec 08, 2016 22:02
[2016-12-08] MEDS: METOPROLOL TARTRATE 5 MG/5 ML VIAL IV PUSH PRN (13:26)
--- NOTE | 2016-12-08 14:34 | PD.ONC.PN ---
Subjective Subjective Remarks Afebrile overnight. patient resting in bed. d/w RN overnight events Objective Data Date Time Temp Pulse Resp B/P Pulse Ox O2 Delivery O2 Flow Rate FiO2 12/08/16 08:08 96 Nasal Cannula 3.00 12/08/16 08:00 86 12/08/16 08:00 98.1 86 15 149/71 95 12/08/16 06:00 90 12/08/16 04:00 98.2 92 18 146/70 100 12/08/16 04:00 92 12/08/16 02:00 83 12/08/16 00:00 98.4 84 18 138/66 94 12/08/16 00:00 84 12/07/16 22:00 87 12/07/16 20:00 97.6 97 16 141/67 92 12/07/16 20:00 97 12/07/16 19:25 94 Nasal Cannula 3.00 12/07/16 18:00 85 12/07/16 17:00 87 19 143/63 93 12/07/16 16:00 91 12/07/16 16:00 98.2 91 19 140/65 92 12/07/16 15:00 87 13 135/63 94 12/08/16 12/08/16 12/08/16 07:00 15:00 23:00 Intake Total 731 ml Output Total 400 ml Balance 331 ml Result Diagram: 12/08/16 0332 12/08/16 0332 Laboratory Results Laboratory Tests Test 12/08/16 03:32 White Blood Count 7.2 TH/MM3 Red Blood Count 3.08 MIL/MM3 Hemoglobin 8.5 GM/DL Hematocrit 26.5 % Mean Corpuscular Volume 85.8 FL Mean Corpuscular Hemoglobin 27.6 PG Mean Corpuscular Hemoglobin 32.1 % Concent Red Cell Distribution Width 16.6 % Platelet Count 149 TH/MM3 Mean Platelet Volume 8.9 FL Neutrophils (%) (Auto) 84.7 % Lymphocytes (%) (Auto) 11.7 % Monocytes (%) (Auto) 3.1 % Eosinophils (%) (Auto) 0.3 % Basophils (%) (Auto) 0.2 % Neutrophils # (Auto) 6.1 TH/MM3 Lymphocytes # (Auto) 0.8 TH/MM3 Monocytes # (Auto) 0.2 TH/MM3 Eosinophils # (Auto) 0.0 TH/MM3 Basophils # (Auto) 0.0 TH/MM3 CBC Comment AUTO DIFF Differential Comment AUTO DIFF CONFIRMED Platelet Estimate NORMAL Platelet Morphology Comment NORMAL Ovalocytes 1+ Sodium Level 145 MEQ/L Potassium Level 4.1 MEQ/L Chloride Level 111 MEQ/L Carbon Dioxide Level 29.0 MEQ/L Anion Gap 5 MEQ/L Blood Urea Nitrogen 32 MG/DL Creatinine 0.87 MG/DL Estimat Glomerular Filtration 90 ML/MIN Rate Random Glucose 191 MG/DL Calcium Level 7.9 MG/DL Phosphorus Level 2.5 MG/DL Magnesium Level 1.8 MG/DL Culture Results Microbiology Date/Time Procedure Status Source Growth 12/06/16 12:00 Aerobic Blood Culture - Preliminary Resulted Blood Line NO GROWTH IN 2 DAYS 12/06/16 12:00 Anaerobic Blood Culture - Preliminary Resulted Blood Line NO GROWTH IN 2 DAYS 12/07/16 08:02 Aerobic Blood Culture - Preliminary Resulted Blood Peripheral NO GROWTH IN 1 DAY 12/07/16 08:02 Anaerobic Blood Culture - Preliminary Resulted Blood Peripheral NO GROWTH IN 1 DAY 12/07/16 16:42 Aerobic Blood Culture - Preliminary Resulted Blood Peripheral NO GROWTH IN 1 DAY 12/07/16 16:42 Anaerobic Blood Culture - Preliminary Resulted Blood Peripheral NO GROWTH IN 1 DAY 12/08/16 03:32 Aerobic Blood Culture Received Blood Peripheral Pending 12/08/16 03:32 Anaerobic Blood Culture Received Blood Peripheral Pending Administered Medications Medications (Trade) Dose Ordered Sig/Geovanny Route PRN Reason Start Time Stop Time Status Last Admin Dose Admin Sodium Chloride (NS Flush) 2 ml UNSCH PRN IV FLUSH FLUSH AFTER USING IV ACCESS 11/30/16 02:45 12/01/16 21:53 Sodium Chloride (NS Flush) 2 ml BID IV FLUSH 11/30/16 09:00 12/08/16 09:29 Oxycodone HCl (Roxicodone) 5 mg Q4H PRN PO PAIN SCALE 3 TO 5 11/30/16 02:45 12/05/16 17:18 Senna/Docusate Sodium (Rere-Colace) 1 tab BID PO 11/30/16 09:00 12/08/16 09:00 Pantoprazole Sodium (Protonix Inj) 40 mg Q12H IV PUSH 11/30/16 09:00 12/08/16 09:32 Acetaminophen (Tylenol) 325 mg Q4H PRN PO PAIN SCALE 1 TO 2 11/30/16 13:45 12/01/16 17:36 Aspirin (Aspirin Chew) 81 mg DAILY PO 11/30/16 13:45 12/08/16 09:32 Clopidogrel Bisulfate (Plavix) 75 mg DAILY PO 12/01/16 09:00 12/08/16 09:29 Ondansetron HCl (Zofran Inj) 4 mg Q4H PRN IV NAUSEA 11/30/16 13:45 12/05/16 22:06 Metoprolol Tartrate (Lopressor) 12.5 mg BID PO 11/30/16 21:00 Hold 12/01/16 09:51 Atorvastatin Calcium (Lipitor) 10 mg HS PO 11/30/16 21:00 Hold 12/02/16 21:22 Sodium Chloride (NS Flush) 5 ml Q21D IV FLUSH 11/30/16 18:00 11/30/16 18:00 Heparin Sodium (Porcine) (Heparin Central Flush) 500 units Q21D IV FLUSH 11/30/16 18:00 11/30/16 18:04 Acetaminophen (Tylenol 650 Mg/ 20 ml Liq) 650 mg Q6H PRN PO FEVER 12/01/16 17:30 12/02/16 01:07 Enoxaparin Sodium (Lovenox Inj) 40 mg Q24H SQ 12/02/16 09:00 12/08/16 09:33 Chlorhexidine Gluconate (Peridex 0.12% Liq) 15 ml BID@08,20 MT 12/02/16 08:00 12/08/16 09:31 Metoprolol Tartrate (Lopressor Inj) 2.5 mg Q6H PRN IV PUSH HR >110 12/02/16 08:15 12/08/16 13:26 Insulin Aspart (NovoLOG SUPPLEMENTAL SCALE) 1 Q4HR SQ 12/03/16 00:00 12/08/16 12:00 Polyethylene Glycol 17 gm 17 gm DAILY PO 12/04/16 09:00 12/08/16 09:29 Potassium Chloride 100 ml @ 50 mls/hr Q2H PRN IV For Potassium 2.8 - 3.2 mEq/L 12/04/16 09:30 12/04/16 21:17 Sodium Phosphate/ Sodium Chloride (Sodium Phosphate Inj/NS 250 ml Inj) 250 ml @ 42 mls/hr UNSCH PRN IV For Phosphorus < 2.5 mg/dL 12/04/16 09:30 12/06/16 06:41 Methylprednisolone Sodium Succinate (SoluMEDROL INJ) 40 mg Q12HR IV PUSH 12/05/16 09:00 12/08/16 09:32 Thiamine HCl (Vitamin B1) 100 mg DAILY PO 12/05/16 09:00 12/08/16 09:33 Multivitamins (Theragran) 1 tab DAILY PO 12/05/16 09:00 12/08/16 09:32 Folic Acid (Folate) 1 mg DAILY PO 12/05/16 09:00 12/08/16 09:29 Morphine Sulfate (Morphine Inj) 2 mg Q2H PRN IV PUSH pain 5-10 12/05/16 10:30 12/07/16 23:34 Rifampin 300 mg 300 mg Q12HR PO 12/06/16 09:15 12/08/16 09:00 Cefazolin Sodium/ Dextrose (Ancef 2 Gm Premix) 50 ml @ 100 mls/hr Q8H IV 12/06/16 10:00 12/08/16 09:45 Levofloxacin (Levaquin) 750 mg Q24H PO 12/06/16 10:00 12/13/16 09:59 12/08/16 09:46 Insulin Detemir (Levemir Inj) 5 units Q12HR SQ 12/07/16 09:00 12/08/16 09:00 Objective Remarks GENERAL: chronically ill male upright in bed in [facility]. SKIN: Warm and dry. bandage, right chest wall, c/d/i HEAD: Normocephalic. EYES: No injection or drainage. NECK: Supple, trachea midline. CARDIOVASCULAR: Regular rate and rhythm. RESPIRATORY: anterior ray clear. on 3L O2 via nc GASTROINTESTINAL: Abdomen soft, non-tender, nondistended. EXTREMITIES: No cyanosis. BLE with SCD's in place. NEUROLOGICAL: awake, fatigued. Assessment/Plan Problem List: (1) NSTEMI (non-ST elevated myocardial infarction) Status: Acute Plan: --had elevated troponin and ST-segment changes consistent with acute TN. --s/p cardiac cath, stent placement to proximal left circumflex --cardiology following --on plavix and ASA (2) SCC (squamous cell carcinoma) Status: Acute Plan: --has a head and neck, lung malignancy which was locally advanced. --received definitive treatment with surgery. Post surgery he had positive margins and some poor risk features and he was about to get concurrent chemotherapy and radiation and adjuvantly to achieve local control of the disease--waiting to receive concurrent chemo/XRT until we have biopsied the esophageal mass --PET scan to stage his disease prior to treatment showed an esophageal masser. (3) Esophageal mass Status: Acute Plan: --concerning for primary esophageal cancer. --patient had OP EGD with biopsy, pathology showed adenocarcinoma. will need EUS for staging when available. --EGD/Colonoscopy, 11/20/16--showed long stricture in the mid esophagus and distal esophagus, multiple biopsies were performed Pathology revealed invasive adenocarcinoma- distal esophagus (4) Normocytic anemia Status: Acute Plan: --transfuse packed red blood cells if his hemoglobin drops below 8. --iron deficient --will need IV iron. (5) Sepsis Status: Acute Plan: BC, 12/07 no growth --BC, 12/05 +, S. Aureus --had removal of port, + S. aureus --on Ancef + Levaquin (6) Thrombocytopenia Status: Acute Plan: --due to sepsis/DIC --Platelet count improving. Assessment 61y/o male with a history of head and neck cancer and also with an esophageal mass who presented with abdominal pain, found to have NSTEMI h/o Squamous cell carcinoma of the parotid gland and Esophageal mass. Plan 1. monitor CBC 2. EUS per GI. once stabilized 3. supportive care Attending Statement The exam, history, and the medical decision-making described in the above note were completed with the assistance of the mid-level provider. I reviewed and agree with the findings presented. I attest that I had a [id number] encounter with the patient on the same day, and personally performed and documented my assessment and findings in the medical record. remains acutely ill difficult situation in this patient with esophageal carcinoma --staging with EUS delayed due to acute illness--he has had TN with stent placement and now on plavix. For EUS the plavix needs to stopped for several days which will present with risk of restenosis of Stent. Will discuss with cardiology. If this option is high risk per them then will consider MRI of the abdomen to asses for locally advanced disease. Will discuss with radiation oncology. We may to start concurrent chemo/rad without EUS in order to avoid further delay in treatmen Problem Qualifiers (1) Sepsis: Qualified Code: A41.9 - Sepsis, due to unspecified organism Perla Duran Dec 08, 2016 14:34 Brant Bell MD Dec 08, 2016 23:59
[2016-12-08] MEDS ORDERED: METOPROLOL TARTRATE 5 MG/5 ML VIAL IV PUSH ONE (15:00)
[2016-12-08] MEDS ORDERED: DILTIAZEM HCL 25 MG/5 ML VIAL IV ONE (15:15)
[2016-12-08] MEDS: METOPROLOL TARTRATE 50 MG TAB PO SCH (21:30)
[2016-12-09] VITALS (15 sets, daily range): BP systolic 112–150; BP diastolic 62–76; PULSE 71–147; RESP 15–20; TEMP 98.1–98.7; O2SAT 94–97
[2016-12-09] MEDS: INSULIN ASPART SUPPLEMENTAL SCALE SQ SCH ×6 (00:03→20:00)
[2016-12-09] MEDS: RESP: ALBUTEROL 2.5 MG/IPRATROPIUM 0.5 MG NEB (SCH) NEB ×7 (00:54→23:49)
[2016-12-09] MEDS: ceFAZolin 2 GM PREMIX 50 ML IV SCH ×3 (01:52→17:30)
[2016-12-09] MEDS: DILTIAZEM HCL 60 MG TAB PO SCH ×4 (04:12→21:39)
[2016-12-09] MEDS: METOPROLOL TARTRATE 5 MG/5 ML VIAL IV PUSH PRN (04:59)
[2016-12-09 06:49] LABS: BASOPHIL % 0.1 % (0.0-2.0); EOSINOPHIL % 0.4 % (0.0-4.0); HEMATOCRIT 29.1 % (39.0-51.0); HEMO FLAGS DIFF FINAL; LYMPH % 9.2 % (9.0-44.0); LYMPHOCYTE # 0.9 TH/MM3 (1.0-4.8); MEAN CELL VOLUME 86.1 FL (80.0-100.0); MEAN CORPUSCULAR HEMOGLOBIN 27.3 PG (27.0-34.0); MEAN CORPUSCULAR HGB CONC 31.7 % (32.0-36.0); MONO % 3.1 % (0.0-8.0); NEUT % 87.2 % (16.0-70.0); PLATELET COUNT 142 TH/MM3 (150-450); RED BLOOD COUNT 3.38 MIL/MM3 (4.50-5.90); RED CELL DISTRIBUTION WIDTH 17.4 % (11.6-17.2); WHITE BLOOD COUNT 10.3 TH/MM3 (4.0-11.0)
[2016-12-09 07:12] LABS: BICARBONATE 27.9 MEQ/L (21.0-32.0); POTASSIUM 4.3 MEQ/L (3.5-5.1)
[2016-12-09 07:15] LABS: INDIRECT BILIRUBIN 0.5 MG/DL (0.0-0.8)
[2016-12-09] MEDS: INSULIN DETEMIR 100 UNITS/ML VIAL SQ SCH ×2 (09:00→21:40)
[2016-12-09] MEDS: CHLORHEXIDINE 0.12% (ORAL KIT) 15 ML CUP MT SCH ×2 (10:11→20:00)
[2016-12-09] MEDS: SODIUM CHLORIDE 0.9% FLUSH 10 ML FLUSH IV FLUSH SCH ×2 (10:12→21:40)
[2016-12-09] MEDS: methylPREDNISolone SOD SUCC 125 MG/2 ML VIAL IV PUSH SCH ×2 (10:12→21:39)
[2016-12-09] MEDS: PANTOPRAZOLE SODIUM 40 MG VIAL IV PUSH SCH ×2 (10:12→21:39)
[2016-12-09] MEDS: DOCUSATE SODIUM 50 MG/SENNA 8.6 MG TAB PO SCH ×2 (10:13→21:39)
[2016-12-09] MEDS: ASPIRIN 81 MG CHEW TAB PO SCH (10:13)
[2016-12-09] MEDS: CLOPIDOGREL 75 MG TAB PO SCH (10:13)
[2016-12-09] MEDS: MULTIVITAMIN TAB PO SCH (10:14)
[2016-12-09] MEDS: LEVOFLOXACIN 750 MG TAB PO SCH (10:14)
[2016-12-09] MEDS: RIFAMPIN 150 MG CAP PO SCH ×2 (10:14→21:40)
[2016-12-09] MEDS: THIAMINE HCL 100 MG TAB PO SCH (10:15)
[2016-12-09] MEDS: POLYETHYLENE GLYCOL 17 GM PKG PO SCH (10:15)
[2016-12-09] MEDS: ENOXAPARIN SODIUM 40 MG/0.4 ML SYRINGE SQ SCH (10:22)
--- NOTE | 2016-12-09 11:06 | HHI.PR ---
Subjective Remarks Discussed with RN. Patient was agitated last night and climbed out of bed. No reported injuries. He is in restraints this morning. He is confused about his whereabouts. He denies any pain. HR was high last night and he was started on Cardizem. Objective Vitals Vital Signs Date Time Temp Pulse Resp B/P Pulse Ox O2 Delivery O2 Flow Rate FiO2 12/09/16 07:48 97 Simple Mask 6.00 12/09/16 06:00 82 12/09/16 04:31 97 Simple Mask 8.00 12/09/16 04:00 98.7 147 15 149/76 95 12/09/16 04:00 147 12/09/16 03:53 94 Simple Mask 8.00 12/09/16 02:00 82 12/09/16 00:00 71 12/09/16 00:00 98.6 71 19 125/64 12/08/16 22:00 89 12/08/16 20:08 96 Nasal Cannula 3.00 12/08/16 20:00 89 12/08/16 20:00 98.7 89 21 138/71 95 12/08/16 18:00 91 12/08/16 16:00 91 12/08/16 16:00 98.1 91 21 134/68 95 12/08/16 14:00 145 12/08/16 12:00 130 12/08/16 12:00 98.9 130 18 135/66 94 I/O 12/08/16 12/08/16 12/08/16 12/09/16 12/09/16 12/09/16 07:00 15:00 23:00 07:00 15:00 23:00 Intake Total 731 ml 1528 ml 200 ml 150 ml Output Total 400 ml 900 ml 750 ml 425 ml Balance 331 ml 628 ml -550 ml -275 ml Intake Oral 600 ml 200 ml 100 ml IV Total 731 ml 928 ml 50 ml Output Urine Total 400 ml 900 ml 750 ml 425 ml # Bowel Movements 1 Result Diagram: 12/09/16 0459 12/09/16 0459 Imaging Last Impressions Chest X-Ray 12/05/16 0600 Signed Impressions: Service Date/Time: Monday, December 05, 2016 03:30 - CONCLUSION: 1. Cardiomegaly and findings of vascular congestion without overt failure. There has been no significant change when compared to the prior exam. Bobby Matias MD Head CT 12/01/16 0000 Signed Impressions: Service Date/Time: Thursday, December 01, 2016 07:59 - CONCLUSION: 1. Questionable area of low attenuation left temporal lobe could be artifact versus less likely infarct. MRI may be warranted based on clinical history. 2. No midline shift or mass effect. 3. No intraparenchymal hemorrhage. Jagjit Tapia MD Brain MRI 12/01/16 0000 Signed Impressions: Service Date/Time: Thursday, December 01, 2016 12:07 - CONCLUSION: Normal examination. Barrett Rodriguez MD Abdomen X-Ray 12/01/16 0000 Signed Impressions: Service Date/Time: Thursday, December 01, 2016 16:48 - CONCLUSION: No evidence of obstruction. Feeding tube tip in the distal stomach. Barrett Rodriguez MD Abdomen/Pelvis CT 11/29/16 2356 Signed Impressions: Service Date/Time: Wednesday, November 30, 2016 01:35 - CONCLUSION: 1. Markedly abnormal appearance of the distal esophagus consistent with the history of esophageal carcinoma. 2. Atherosclerotic calcifications of the aorta and iliac vessels. 3. Cirrhotic appearance to the liver with a mildly nodular contour present. Erik Simon MD CT Angiography 11/29/16 2348 Signed Impressions: Service Date/Time: Wednesday, November 30, 2016 01:35 - CONCLUSION: 1. No evidence for pulmonary embolism or pneumonia. 2. Abnormal appearance of the esophagus with and soft tissue consistent with the history of carcinoma. Erik Simon MD Objective Remarks GENERAL: Patient appearing older than stated age. CARDIOVASCULAR: Normal rate and regular rhythm without murmurs, gallops, or rubs. RESPIRATORY: Good respiratory efforts. Breath sounds equal and clear to auscultation bilaterally. GASTROINTESTINAL: Abdomen soft, non-tender, non-distended. Normal active bowel sounds MUSCULOSKELETAL: Extremities without cyanosis, or edema. NEURO: Alert to self only. Moves all extremities. PSYCH: Confused and anxious. A/P Problem List: (1) Intractable abdominal pain ICD Code: R10.9 Status: Acute (2) Esophageal carcinoma ICD Code: C15.9 Status: Acute (3) SCC (squamous cell carcinoma) ICD Code: C44.92 Status: Acute (4) Hypokalemia ICD Code: E87.6 Status: Acute (5) Lactic acidosis ICD Code: E87.2 Status: Acute (6) Renal insufficiency ICD Code: N28.9 Status: Acute (7) Elevated troponin ICD Code: R74.8 Status: Acute (8) DM (diabetes mellitus) ICD Code: E11.9 Status: Acute (9) Tobacco abuse ICD Code: Z72.0 Status: Acute (10) NSTEMI (non-ST elevated myocardial infarction) ICD Code: I21.4 Status: Acute (11) Bacteremia due to Gram-positive bacteria ICD Code: R78.81 Status: Acute (12) Encephalopathy, metabolic ICD Code: G93.41 Status: Acute Assessment and Plan 61-year-old male with a medical history significant for left parotid gland squamous cell cancer initially admitted for intractable abdominal pain, lactic acidemia and other nonspecific complaints. The patient was found to have and NSTEMI and later found to be septic. He went into septic shock secondary to MSSA bacteremia from Xxranb-b-[id number] infection. Patient is status post ICU course including intubation and extubation. He is status post port removal. He is hemodynamically stable and has been transferred to the hospitalist service. Septic shock-resolved MSSA bacteremia Aqrcay-k-Gdtk infection - s/p removal of Urnxlr-h-Rfjb - Catheter tip culture blood culture and wound culture also positive for MSSA - Continue abx per ID (Ancef, Rifampin, Levaquin PO) will need abx for 6 weeks from port removal. Acute metabolic encephalopathy Agitation - Morphine for pain control - Encephalopathy most likely secondary to severe sepsis - Continue Thiamine, MVI, folic acid - Ativan PRN agitation Acute hypoxemic respiratory failure Acute COPD exacerbation Tobacco abuse - Emergently intubated and placed on mechanical ventilation 12/02/16, extubated successfully 12/03/16 - Continue with oxygen keep sat >92% - DuoNeb every 4 hours and when necessary - IV Solu-Medrol 40 q12 hr for COPD exacerbation - Broad spectrum ABX NSTEMI - s/p PCI to LCx by Dr. Krause on 11/30/16 - Continue ASA/Plavix/ - 2-D echo no veg, EF 50-55% Invasive adenocarcinoma of the esophagus Liver cirrhosis - On Honey thickened diet - GI following- has biopsy proven invasive adenocarcinoma of esophagus - IV Protonix - Oncology following. 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 Bell is following - Status post surgical resection for L parotid SCC. Diabetes Hypothyroidism - Electrolyte replacement per protocol - SSI ( medium scale) Levemir 5units BID for glycemic control - Continue thyroid supplementation PROPH: - Bilateral lower extremity SCDs. - Lovenox/Protonix Discharge Planning Continue care in the ICU. Carole Poole MD Dec 09, 2016 11:06
--- NOTE | 2016-12-09 11:31 | HHI.GIFU ---
Subjective Remarks Patient is doing better today, working with PT, trying to walk with walker. Still on O2. Denies nausea, vomiting or abd pain. ST suggested to do mech. chopped. (Karen Mae) Objective Vitals I&O Vital Signs Date Time Temp Pulse Resp B/P Pulse Ox O2 Delivery O2 Flow Rate FiO2 12/09/16 07:48 97 Simple Mask 6.00 12/09/16 06:00 82 12/09/16 04:31 97 Simple Mask 8.00 12/09/16 04:00 98.7 147 15 149/76 95 12/09/16 04:00 147 12/09/16 03:53 94 Simple Mask 8.00 12/09/16 02:00 82 12/09/16 00:00 71 12/09/16 00:00 98.6 71 19 125/64 12/08/16 22:00 89 12/08/16 20:08 96 Nasal Cannula 3.00 12/08/16 20:00 89 12/08/16 20:00 98.7 89 21 138/71 95 12/08/16 18:00 91 12/08/16 16:00 91 12/08/16 16:00 98.1 91 21 134/68 95 12/08/16 14:00 145 12/08/16 12:00 130 12/08/16 12:00 98.9 130 18 135/66 94 I/O 12/08/16 12/08/16 12/08/16 12/09/16 12/09/16 12/09/16 07:00 15:00 23:00 07:00 15:00 23:00 Intake Total 731 ml 1528 ml 200 ml 150 ml Output Total 400 ml 900 ml 750 ml 425 ml Balance 331 ml 628 ml -550 ml -275 ml Intake Oral 600 ml 200 ml 100 ml IV Total 731 ml 928 ml 50 ml Output Urine Total 400 ml 900 ml 750 ml 425 ml # Bowel Movements 1 Laboratory Laboratory Tests Test 12/09/16 04:59 White Blood Count 10.3 Red Blood Count 3.38 Hemoglobin 9.2 Hematocrit 29.1 Mean Corpuscular Volume 86.1 Mean Corpuscular Hemoglobin 27.3 Mean Corpuscular Hemoglobin 31.7 Concent Red Cell Distribution Width 17.4 Platelet Count 142 Mean Platelet Volume 9.2 Neutrophils (%) (Auto) 87.2 Lymphocytes (%) (Auto) 9.2 Monocytes (%) (Auto) 3.1 Eosinophils (%) (Auto) 0.4 Basophils (%) (Auto) 0.1 Neutrophils # (Auto) 9.0 Lymphocytes # (Auto) 0.9 Monocytes # (Auto) 0.3 Eosinophils # (Auto) 0.0 Basophils # (Auto) 0.0 CBC Comment DIFF FINAL Differential Comment Sodium Level 147 Potassium Level 4.3 Chloride Level 111 Carbon Dioxide Level 27.9 Anion Gap 8 Blood Urea Nitrogen 31 Creatinine 0.97 Estimat Glomerular Filtration 79 Rate Random Glucose 156 Calcium Level 8.2 Total Bilirubin 1.0 Direct Bilirubin 0.5 Indirect Bilirubin 0.5 Aspartate Amino Transf 27 (AST/SGOT) Alanine Aminotransferase 28 (ALT/SGPT) Alkaline Phosphatase 86 Total Protein 6.5 Albumin 2.2 Date/Time Procedure Status Source Growth 12/08/16 03:32 Aerobic Blood Culture - Preliminary Resulted Blood Peripheral NO GROWTH IN 1 DAY 12/08/16 03:32 Anaerobic Blood Culture - Preliminary Resulted Blood Peripheral NO GROWTH IN 1 DAY 12/05/16 13:31 Aerobic Blood Culture - Final Resulted Blood Peripheral Staphylococcus Aureus 12/05/16 13:31 Anaerobic Blood Culture - Preliminary Resulted Blood Peripheral NO GROWTH IN 4 DAYS Imaging Last Impressions Chest X-Ray 12/05/16 0600 Signed Impressions: Service Date/Time: Monday, December 05, 2016 03:30 - CONCLUSION: 1. Cardiomegaly and findings of vascular congestion without overt failure. There has been no significant change when compared to the prior exam. Bobby Matias MD Head CT 12/01/16 0000 Signed Impressions: Service Date/Time: Thursday, December 01, 2016 07:59 - CONCLUSION: 1. Questionable area of low attenuation left temporal lobe could be artifact versus less likely infarct. MRI may be warranted based on clinical history. 2. No midline shift or mass effect. 3. No intraparenchymal hemorrhage. Jagjit Tapia MD Brain MRI 12/01/16 0000 Signed Impressions: Service Date/Time: Thursday, December 01, 2016 12:07 - CONCLUSION: Normal examination. Barrett Rodriguez MD Abdomen X-Ray 12/01/16 0000 Signed Impressions: Service Date/Time: Thursday, December 01, 2016 16:48 - CONCLUSION: No evidence of obstruction. Feeding tube tip in the distal stomach. Barrett Rodriguez MD Abdomen/Pelvis CT 11/29/16 0866 Signed Impressions: Service Date/Time: Wednesday, November 30, 2016 01:35 - CONCLUSION: 1. Markedly abnormal appearance of the distal esophagus consistent with the history of esophageal carcinoma. 2. Atherosclerotic calcifications of the aorta and iliac vessels. 3. Cirrhotic appearance to the liver with a mildly nodular contour present. Erik Simon MD CT Angiography 11/29/16 2344 Signed Impressions: Service Date/Time: Wednesday, November 30, 2016 01:35 - CONCLUSION: 1. No evidence for pulmonary embolism or pneumonia. 2. Abnormal appearance of the esophagus with and soft tissue consistent with the history of carcinoma. Erik Simon MD Physical Exam HEENT: Normocephalic; atraumatic; no jaundice. CHEST: Resp. even/unlabored. CARDIAC: RRR. ABDOMEN: Soft, mildly distended, nontender; no hepatosplenomegaly; bowel sounds are present in all four quadrants. EXTREMITIES: No clubbing, cyanosis, or edema. SKIN: Normal; no rash; no jaundice. CUSTOM MILLER: Alert and oriented (ChikaawiKaren SPEECH THERAPY TEACHER) Assessment and Plan Plan ASSESSMENT: - Esophageal cancer. PET Scan (10/28/16)----> negative examination of the head and neck, findings characteristic of esophageal neoplasm. S/P EGD/Colonoscopy (11/20/16)----> There was a long stricture i the mid esophagus and distal esophagus, multiple biopsies were performed, the mucosa of the stomach appeared normal, duodenal mucosa showed no abnormalities in the entire duodenum, retroflexed views revealed a small hiatal hernia; nine sessile polyps ranging from 4-12 mm in size were found at the cecum, in the ascending colon, descending colon, sigmoid colon, and rectum; polypectomy was performed using snare cautery, moderate diverticulosis was noted in the left colon, retroflexed views revealed internal grade I hemorrhoids, a digital rectal exam was performed and revealed no abnormalities of the anus. Pathology revealed invasive adenocarcinoma- distal esophagus, descending colon polyp and rectosigmoid polyp both benign hyperplastic colonic polyp, no adenomatous change or malignancy is seen. D/W Oncology, plan is for EUS when more stable- timing to be determined. Possibly next week. - Dysphagia. ST following, full liquids with honey consistency liquids - Constipation. (+) BM. Miralax - Abnormal imaging of the liver on CT scan, consistent with cirrhosis. Abdomen/ Pelvis CT (11/29/16)----> 1. Markedly abnormal appearance of the distal esophagus consistent with the history of esophageal carcinoma. 2. Atherosclerotic calcifications of the aorta and iliac vessels. 3. Cirrhotic appearance to the liver with a mildly nodular contour present. Unclear if he has hx of cirrhosis. There is mention of hx of HCV in EMR, but patient has had undetectable viral load as far back as 2001. Pt is now awake and able to tell me that he has a history of HCV and was successfully treated with Interferon/ribavirin in the past. Iron saturation 4.1%, Ferritin 124, Hepatitis C antibodies (+), viral load undetectable, TERRIE negative , ASMA < 20.0, AMA neg, Ceruloplasmin 40 and alpha 1 antitrypsin 298. Labs and imaging consistent with cirrhosis. Pt does not currently drink, but states that he was a heavy drinker in the past. T. Bili 1.4, AST 24, ALT 33, Alk Phosph 81. - Sepsis/Bacteremia/UTI. Urine and Bcx with Staphylococcus aureus. S/P removal of infusaport by GS (12/02). Cefepime - AMS, Acute metabolic encephalopathy. Head CT (12/01/16)-----> 1. Questionable area of low attenuation left temporal lobe could be artifact versus less likely infarct. MRI may be warranted based on clinical history. 2. No midline shift or mass effect. 3. No intraparenchymal hemorrhage. Brain MRI (12/01/16 )----> Normal examination. Lethargic, but awakens and follows commands. Confused. - Resp. Failure. Chest X-Ray (12/05/16)----> 1. Cardiomegaly and findings of vascular congestion without overt failure. There has been no significant change when compared to the prior exam. S/P Extubation on 12/03. O2 5L via n/c. Solumerol, nebs, - NSTEMI, CAD. S/P left heart catheterization (11/30/16) with Dr. Murillo and this revealed RCA 10% lesion mid segment, mild calcifications left main, LAD with calcification from it's proximal segment to its midsegment however, with no significant obstructive lesions, The LAD is giving off to a diagonal which has a 70% lesion in its ostial segment, left circumflex artery with a proximal clot thrombus, S/P percutaneous coronary intervention/bare metal stent to proximal left circumflex. ASA and Plavix, as well as aggressive optimization of coronary artery disease. 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 S/P mohs surgery by a local sales associate in September of 2015 and shortly after this, developed a mass near the surgical area. S/P at [facility] with Dr. Valdovinos in June of 2016----> underwent extensive head and neck surgery involving a parotidectomy and radical neck dissection in September of 2016. Because of high risk features of local recurrence with perineural invasion and positive margins, it was recommended that he have concurrent chemoradiation therapy. He was evaluated by Dr. Cross for radiation and seen by Dr. Bell for oncology. PET Scan ()----> negative examination of the head and neck, findings characteristic of esophageal neoplasm. Direct visualization is recommended. - Hx HTN (now hypotensive), Hyperlipidemia, DM. per attending. 12-08-16- Patient on 3 L of O2, tolerating fulls okay, no n/v or abd pain. 12-09-16- doing good today, up with PT, tolerating diet okay PLAN: - Will advance to [facility]. chopped - as recommended by ST. - EUS when more stable - Cont. PPI - Cont. Miralax - Monitor labs - Supportive care - Further recommendations to follow based on results of above Patient seen and examined by Dr. Tejeda and myself and this note is written on his behalf (Karen Mae) Physician Comments Patient seen and examined Agree with above Continue with current supportive care Monitor labs EUS when more stable (Ortiz Tejeda MD) Karen Mae Dec 09, 2016 11:31 Ortiz Tejeda MD Dec 09, 2016 22:42
[2016-12-09] MEDS: METOPROLOL TARTRATE 50 MG TAB PO SCH ×2 (12:45→21:39)
[2016-12-09] MEDS: FOLIC ACID 1 MG TAB PO SCH (12:45)
--- NOTE | 2016-12-09 13:23 | HHI.IDPN ---
Subjective Subjective Remarks Patient is a 61-year-old male, currently lethargic, and unable to give any history. History has been obtained from the chart. 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 It was reportedly malignant as well. He presented to the hospital complaining of generalized weakness, abdominal pain and progressive swallowing difficulty over the last 3 weeks. Evaluation in the emergency room revealed abnormal EKG, and he underwent cardiac catheterization. He had non-ST TX, and had revascularization with stent placement of his left circumflex artery. Patient is spiked to 103, and there were 2 blood cultures done yesterday that are now reported as growing staph aureus. Patient currently has a Saxena catheter. There is a lot of sediment in his urine, and his urine culture is also showing staph aureus. CT of the abdomen and pelvis did not show any abnormality except the soft tissue mass in the esophagus. He had atherosclerosis of his vasculature. There was also evidence of possible liver cirrhosis. Patient is being evaluated for chemotherapy and radiation, but he has not been started. He had an [id number] placement on November 12 on his right upper chest. Notes reviewed Temps ok On nasal O2 Last (+) BC 12/05 Port removed 12/02 CXR 12/05, stable Antibiotics Ancef/rifampin Levaquin Lines Port - removed 12/02 LSC TLC - 12/02 Past Medical History Hypertension Hyperlipidemia CAD Diabetes 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 and he had good margins Recurrent squamous cell carcinoma on the left face, with involvement of the parotid gland, status post surgery at [facility] Recently found to have esophageal mass Past Surgical History Appendectomy Liver Biopsy Resection of a squamous cell carcinoma on the left cheek in 2011 Extensive surgery on the left face and neck for recurrent squamous cell carcinoma Port Placement November 12, 2016 Allergies: Coded Allergies: Penicillin (Verified Allergy, Mild, Hives, 11/12/16) Objective . Vital Signs Date Time Temp Pulse Resp B/P Pulse Ox O2 Delivery O2 Flow Rate FiO2 12/09/16 07:48 97 Simple Mask 6.00 12/09/16 06:00 82 12/09/16 04:31 97 Simple Mask 8.00 12/09/16 04:00 98.7 147 15 149/76 95 12/09/16 04:00 147 12/09/16 03:53 94 Simple Mask 8.00 12/09/16 02:00 82 12/09/16 00:00 71 12/09/16 00:00 98.6 71 19 125/64 12/08/16 22:00 89 12/08/16 20:08 96 Nasal Cannula 3.00 12/08/16 20:00 89 12/08/16 20:00 98.7 89 21 138/71 95 12/08/16 18:00 91 12/08/16 16:00 91 12/08/16 16:00 98.1 91 21 134/68 95 12/08/16 14:00 145 12/08/16 12/08/16 12/09/16 15:00 23:00 07:00 Intake Total 1528 ml 200 ml 150 ml Output Total 900 ml 750 ml 425 ml Balance 628 ml -550 ml -275 ml Intake Oral 600 ml 200 ml 100 ml IV Total 928 ml 50 ml Output Urine Total 900 ml 750 ml 425 ml # Bowel Movements 1 . Laboratory Tests Test 12/08/16 12/09/16 03:32 04:59 White Blood Count 7.2 TH/MM3 10.3 TH/MM3 Red Blood Count 3.08 MIL/MM3 3.38 MIL/MM3 Hemoglobin 8.5 GM/DL 9.2 GM/DL Hematocrit 26.5 % 29.1 % Mean Corpuscular Volume 85.8 FL 86.1 FL Mean Corpuscular Hemoglobin 27.6 PG 27.3 PG Mean Corpuscular Hemoglobin 32.1 % 31.7 % Concent Red Cell Distribution Width 16.6 % 17.4 % Platelet Count 149 TH/MM3 142 TH/MM3 Mean Platelet Volume 8.9 FL 9.2 FL Neutrophils (%) (Auto) 84.7 % 87.2 % Lymphocytes (%) (Auto) 11.7 % 9.2 % Monocytes (%) (Auto) 3.1 % 3.1 % Eosinophils (%) (Auto) 0.3 % 0.4 % Basophils (%) (Auto) 0.2 % 0.1 % Neutrophils # (Auto) 6.1 TH/MM3 9.0 TH/MM3 Lymphocytes # (Auto) 0.8 TH/MM3 0.9 TH/MM3 Monocytes # (Auto) 0.2 TH/MM3 0.3 TH/MM3 Eosinophils # (Auto) 0.0 TH/MM3 0.0 TH/MM3 Basophils # (Auto) 0.0 TH/MM3 0.0 TH/MM3 CBC Comment AUTO DIFF DIFF FINAL Differential Comment AUTO DIFF CONFIRMED Platelet Estimate NORMAL Platelet Morphology Comment NORMAL Ovalocytes 1+ Laboratory Tests Test 12/08/16 12/09/16 03:32 04:59 Sodium Level 145 MEQ/L 147 MEQ/L Potassium Level 4.1 MEQ/L 4.3 MEQ/L Chloride Level 111 MEQ/L 111 MEQ/L Carbon Dioxide Level 29.0 MEQ/L 27.9 MEQ/L Anion Gap 5 MEQ/L 8 MEQ/L Blood Urea Nitrogen 32 MG/DL 31 MG/DL Creatinine 0.87 MG/DL 0.97 MG/DL Estimat Glomerular Filtration 90 ML/MIN 79 ML/MIN Rate Random Glucose 191 MG/DL 156 MG/DL Calcium Level 7.9 MG/DL 8.2 MG/DL Phosphorus Level 2.5 MG/DL Magnesium Level 1.8 MG/DL Total Bilirubin 1.0 MG/DL Direct Bilirubin 0.5 MG/DL Indirect Bilirubin 0.5 MG/DL Aspartate Amino Transf 27 U/L (AST/SGOT) Alanine Aminotransferase 28 U/L (ALT/SGPT) Alkaline Phosphatase 86 U/L Total Protein 6.5 GM/DL Albumin 2.2 GM/DL Microbiology Date/Time Procedure Status Source Growth 12/07/16 08:02 Aerobic Blood Culture - Preliminary Resulted Blood Peripheral NO GROWTH IN 2 DAYS 12/07/16 08:02 Anaerobic Blood Culture - Preliminary Resulted Blood Peripheral NO GROWTH IN 2 DAYS 12/07/16 16:42 Aerobic Blood Culture - Preliminary Resulted Blood Peripheral NO GROWTH IN 2 DAYS 12/07/16 16:42 Anaerobic Blood Culture - Preliminary Resulted Blood Peripheral NO GROWTH IN 2 DAYS 12/08/16 03:32 Aerobic Blood Culture - Preliminary Resulted Blood Peripheral NO GROWTH IN 1 DAY 12/08/16 03:32 Anaerobic Blood Culture - Preliminary Resulted Blood Peripheral NO GROWTH IN 1 DAY Imaging Chest X-Ray 12/05/16 0600 Signed Impressions: Service Date/Time: Monday, December 05, 2016 03:30 - CONCLUSION: 1. Cardiomegaly and findings of vascular congestion without overt failure. There has been no significant change when compared to the prior exam. Bobby Matias MD Head CT 12/01/16 0000 Signed Impressions: Service Date/Time: Thursday, December 01, 2016 07:59 - CONCLUSION: 1. Questionable area of low attenuation left temporal lobe could be artifact versus less likely infarct. MRI may be warranted based on clinical history. 2. No midline shift or mass effect. 3. No intraparenchymal hemorrhage. Jagjit Tapia MD Brain MRI 12/01/16 0000 Signed Impressions: Service Date/Time: Thursday, December 01, 2016 12:07 - CONCLUSION: Normal examination. Barrett Rodriguez MD Abdomen X-Ray 12/01/16 0000 Signed Impressions: Service Date/Time: Thursday, December 01, 2016 16:48 - CONCLUSION: No evidence of obstruction. Feeding tube tip in the distal stomach. aBrrett Rodriguez MD Abdomen/Pelvis CT 11/29/16 2356 Signed Impressions: Service Date/Time: Wednesday, November 30, 2016 01:35 - CONCLUSION: 1. Markedly abnormal appearance of the distal esophagus consistent with the history of esophageal carcinoma. 2. Atherosclerotic calcifications of the aorta and iliac vessels. 3. Cirrhotic appearance to the liver with a mildly nodular contour present. Erik Simon MD CT Angiography 11/29/16 2348 Signed Impressions: Service Date/Time: Wednesday, November 30, 2016 01:35 - CONCLUSION: 1. No evidence for pulmonary embolism or pneumonia. 2. Abnormal appearance of the esophagus with and soft tissue consistent with the history of carcinoma. Erik Simon MD Chest X-Ray 12/03/16 0600 Signed Impressions: Service Date/Time: Saturday, December 03, 2016 04:43 - CONCLUSION: Increasing consolidation in the left lower lung. Bilateral interstitial changes. Niko Wilcox MD Chest X-Ray 12/03/16 0000 Signed Impressions: Service Date/Time: Saturday, December 03, 2016 07:48 - CONCLUSION: 1. Persistent left retrocardiac density and slight interstitial prominence. Jagjit Tapia MD Chest X-Ray 12/02/16 0000 Signed Impressions: Service Date/Time: Friday, December 02, 2016 15:55 - CONCLUSION: Normal examination with endotracheal tube and central lines in good position. Barrett Rodriguez MD Chest X-Ray 12/02/16 0000 Signed Impressions: Service Date/Time: Friday, December 02, 2016 08:24 - CONCLUSION: Mild perihilar vascular congestion. Endotracheal tube is in good position Barrett Rodriguez MD Chest X-Ray 12/02/16 0000 Signed Impressions: Service Date/Time: Friday, December 02, 2016 06:53 - CONCLUSION: Underinflated examination with atelectasis at the lung bases. Given the technique, no acute abnormality or significant interval change is appreciated. Washington Marroquin MD Physical Exam GENERAL: Awake, following commands, NAD SKIN: Warm and dry. No generalized rash, no ecchymoses. Has embolic lesions in his L big toe no change EYES: Petechia resolved, no hemorrhage. Extraocular movements full and intact. [place]. No scleral icterus. No injection or drainage. EARS, NOSE AND THROAT: Nose without bleeding or purulent nasal discharge. No sinus tenderness. Orally intubated NECK: Trachea midline. Supple and not tender, no meningeal signs CARDIOVASCULAR: Regular rate and rhythm. No murmurs, rubs or gallops heard. RESPIRATORY: Coarse BS bilaterally. Previous port with intact dressing ABDOMEN: Soft, mildly distended. Mild diffuse tenderness, no guarding. Bowel sounds present and normoactive. No rebound. No organomegaly. EXTREMITIES: No clubbing, cyanosis. Has mild pedal edema. No calf tenderness. Well perfused and warm. NEUROLOGICAL: Awake and following commands, slow to respond PSYCHIATRIC: Cooperative LINE: No evidence of infection : Saxena in place Assessment & Plan Remarks IMPRESSION Sepsis, with shock has MSSA due to port infection - S/P removal port 12/02 - has new (+) BC Respiratory failure, has L base infiltrate, and GNR in sputum (+) UC with Staph aureus, due to current bacteremia Recurrent squamous cell CA Esophageal CA Lethargy and SOB due to sepsis, better - has acidosis Renal insufficiency, due to sepsis and shock, better RECOMMENDATION Follow new C/S Continue Rifampin, for synergy vs MSSA - follow LFT Continue Levaquin and give 7 days for GNR in sputum Continue IV Ancef He will need 6 weeks IV Abx from date of port removal/last (+) BC for MSSA sepsis Follow temps Monitor progress Carola Nassar MD 25, 2017 13:23
--- NOTE | 2016-12-09 13:25 | PD.ONC.PN ---
Subjective Subjective Remarks Afebrile overnight. Patient resting in bed. heart rate improved today. still fatigued and debilitated. Objective Data Date Time Temp Pulse Resp B/P Pulse Ox O2 Delivery O2 Flow Rate FiO2 12/09/16 07:48 97 Simple Mask 6.00 12/09/16 06:00 82 12/09/16 04:31 97 Simple Mask 8.00 12/09/16 04:00 98.7 147 15 149/76 95 12/09/16 04:00 147 12/09/16 03:53 94 Simple Mask 8.00 12/09/16 02:00 82 12/09/16 00:00 71 12/09/16 00:00 98.6 71 19 125/64 12/08/16 22:00 89 12/08/16 20:08 96 Nasal Cannula 3.00 12/08/16 20:00 89 12/08/16 20:00 98.7 89 21 138/71 95 12/08/16 18:00 91 12/08/16 16:00 91 12/08/16 16:00 98.1 91 21 134/68 95 12/08/16 14:00 145 12/09/16 12/09/16 12/09/16 06:59 14:59 22:59 Intake Total 150 ml Output Total 425 ml Balance -275 ml Result Diagram: 12/09/16 0459 12/09/16 0459 Laboratory Results Laboratory Tests Test 12/09/16 04:59 White Blood Count 10.3 TH/MM3 Red Blood Count 3.38 MIL/MM3 Hemoglobin 9.2 GM/DL Hematocrit 29.1 % Mean Corpuscular Volume 86.1 FL Mean Corpuscular Hemoglobin 27.3 PG Mean Corpuscular Hemoglobin 31.7 % Concent Red Cell Distribution Width 17.4 % Platelet Count 142 TH/MM3 Mean Platelet Volume 9.2 FL Neutrophils (%) (Auto) 87.2 % Lymphocytes (%) (Auto) 9.2 % Monocytes (%) (Auto) 3.1 % Eosinophils (%) (Auto) 0.4 % Basophils (%) (Auto) 0.1 % Neutrophils # (Auto) 9.0 TH/MM3 Lymphocytes # (Auto) 0.9 TH/MM3 Monocytes # (Auto) 0.3 TH/MM3 Eosinophils # (Auto) 0.0 TH/MM3 Basophils # (Auto) 0.0 TH/MM3 CBC Comment DIFF FINAL Differential Comment Sodium Level 147 MEQ/L Potassium Level 4.3 MEQ/L Chloride Level 111 MEQ/L Carbon Dioxide Level 27.9 MEQ/L Anion Gap 8 MEQ/L Blood Urea Nitrogen 31 MG/DL Creatinine 0.97 MG/DL Estimat Glomerular Filtration 79 ML/MIN Rate Random Glucose 156 MG/DL Calcium Level 8.2 MG/DL Total Bilirubin 1.0 MG/DL Direct Bilirubin 0.5 MG/DL Indirect Bilirubin 0.5 MG/DL Aspartate Amino Transf 27 U/L (AST/SGOT) Alanine Aminotransferase 28 U/L (ALT/SGPT) Alkaline Phosphatase 86 U/L Total Protein 6.5 GM/DL Albumin 2.2 GM/DL Culture Results Microbiology Date/Time Procedure Status Source Growth 12/07/16 08:02 Aerobic Blood Culture - Preliminary Resulted Blood Peripheral NO GROWTH IN 2 DAYS 12/07/16 08:02 Anaerobic Blood Culture - Preliminary Resulted Blood Peripheral NO GROWTH IN 2 DAYS 12/07/16 16:42 Aerobic Blood Culture - Preliminary Resulted Blood Peripheral NO GROWTH IN 2 DAYS 12/07/16 16:42 Anaerobic Blood Culture - Preliminary Resulted Blood Peripheral NO GROWTH IN 2 DAYS 12/08/16 03:32 Aerobic Blood Culture - Preliminary Resulted Blood Peripheral NO GROWTH IN 1 DAY 12/08/16 03:32 Anaerobic Blood Culture - Preliminary Resulted Blood Peripheral NO GROWTH IN 1 DAY Administered Medications Medications (Trade) Dose Ordered Sig/Geovanny Route PRN Reason Start Time Stop Time Status Last Admin Dose Admin Sodium Chloride (NS Flush) 2 ml UNSCH PRN IV FLUSH FLUSH AFTER USING IV ACCESS 11/30/16 02:45 12/01/16 21:53 Sodium Chloride (NS Flush) 2 ml BID IV FLUSH 11/30/16 09:00 12/09/16 10:12 Oxycodone HCl (Roxicodone) 5 mg Q4H PRN PO PAIN SCALE 3 TO 5 11/30/16 02:45 12/09/16 12:45 Senna/Docusate Sodium (Rere-Colace) 1 tab BID PO 11/30/16 09:00 12/09/16 10:13 Pantoprazole Sodium (Protonix Inj) 40 mg Q12H IV PUSH 11/30/16 09:00 12/09/16 10:12 Acetaminophen (Tylenol) 325 mg Q4H PRN PO PAIN SCALE 1 TO 2 11/30/16 13:45 12/01/16 17:36 Aspirin (Aspirin Chew) 81 mg DAILY PO 11/30/16 13:45 12/09/16 10:13 Clopidogrel Bisulfate (Plavix) 75 mg DAILY PO 12/01/16 09:00 12/09/16 10:13 Ondansetron HCl (Zofran Inj) 4 mg Q4H PRN IV NAUSEA 11/30/16 13:45 12/05/16 22:06 Metoprolol Tartrate (Lopressor) 12.5 mg BID PO 11/30/16 21:00 Hold 12/01/16 09:51 Atorvastatin Calcium (Lipitor) 10 mg HS PO 11/30/16 21:00 Hold 12/02/16 21:22 Sodium Chloride (NS Flush) 5 ml Q21D IV FLUSH 11/30/16 18:00 11/30/16 18:00 Heparin Sodium (Porcine) (Heparin Central Flush) 500 units Q21D IV FLUSH 11/30/16 18:00 11/30/16 18:04 Acetaminophen (Tylenol 650 Mg/ 20 ml Liq) 650 mg Q6H PRN PO FEVER 12/01/16 17:30 12/02/16 01:07 Enoxaparin Sodium (Lovenox Inj) 40 mg Q24H SQ 12/02/16 09:00 12/09/16 10:22 Chlorhexidine Gluconate (Peridex 0.12% Liq) 15 ml BID@08,20 MT 12/02/16 08:00 12/09/16 10:11 Metoprolol Tartrate (Lopressor Inj) 2.5 mg Q6H PRN IV PUSH HR >110 12/02/16 08:15 12/09/16 04:59 Insulin Aspart (NovoLOG SUPPLEMENTAL SCALE) 1 Q4HR SQ 12/03/16 00:00 12/09/16 12:00 Polyethylene Glycol 17 gm 17 gm DAILY PO 12/04/16 09:00 12/09/16 10:15 Potassium Chloride 100 ml @ 50 mls/hr Q2H PRN IV For Potassium 2.8 - 3.2 mEq/L 12/04/16 09:30 12/04/16 21:17 Sodium Phosphate/ Sodium Chloride (Sodium Phosphate Inj/NS 250 ml Inj) 250 ml @ 42 mls/hr UNSCH PRN IV For Phosphorus < 2.5 mg/dL 12/04/16 09:30 12/06/16 06:41 Methylprednisolone Sodium Succinate (SoluMEDROL INJ) 40 mg Q12HR IV PUSH 12/05/16 09:00 12/09/16 10:12 Thiamine HCl (Vitamin B1) 100 mg DAILY PO 12/05/16 09:00 12/09/16 10:15 Multivitamins (Theragran) 1 tab DAILY PO 12/05/16 09:00 12/09/16 10:14 Folic Acid (Folate) 1 mg DAILY PO 12/05/16 09:00 12/09/16 12:45 Morphine Sulfate (Morphine Inj) 2 mg Q2H PRN IV PUSH pain 5-10 12/05/16 10:30 12/07/16 23:34 Rifampin 300 mg 300 mg Q12HR PO 12/06/16 09:15 12/09/16 10:14 Cefazolin Sodium/ Dextrose (Ancef 2 Gm Premix) 50 ml @ 100 mls/hr Q8H IV 12/06/16 10:00 12/09/16 10:14 Levofloxacin (Levaquin) 750 mg Q24H PO 12/06/16 10:00 12/13/16 09:59 12/09/16 10:14 Insulin Detemir (Levemir Inj) 5 units Q12HR SQ 12/07/16 09:00 12/09/16 09:00 Metoprolol Tartrate (Lopressor) 50 mg Q12HR PO 12/08/16 21:00 12/09/16 12:45 Diltiazem HCl (Cardizem) 60 mg Q6H PO 12/09/16 05:00 12/09/16 10:13 Objective Remarks GENERAL: chronically ill male sitting up in bed in [facility]. SKIN: Warm and dry. non-bleeding wound, right chest wall. HEAD: Normocephalic. EYES: No injection or drainage. NECK: Supple, trachea midline. CARDIOVASCULAR: Regular rate and rhythm. RESPIRATORY: anterior ray clear. On 5 O2 via NC GASTROINTESTINAL: Abdomen soft, non-tender, nondistended. EXTREMITIES: No cyanosis. NEUROLOGICAL: awake and alert. normal speech. Assessment/Plan Problem List: (1) NSTEMI (non-ST elevated myocardial infarction) Status: Acute Plan: --had elevated troponin and ST-segment changes consistent with acute HI. --s/p cardiac cath, stent placement to proximal left circumflex --cardiology following --on plavix and ASA (2) SCC (squamous cell carcinoma) Status: Acute Plan: --has a head and neck, lung malignancy which was locally advanced. --received definitive treatment with surgery. Post surgery he had positive margins and some poor risk features and he was about to get concurrent chemotherapy and radiation and adjuvantly to achieve local control of the disease--waiting to receive concurrent chemo/XRT until we have biopsied the esophageal mass --PET scan to stage his disease prior to treatment showed an esophageal masser. (3) Esophageal mass Status: Acute Plan: --concerning for primary esophageal cancer. --patient had OP EGD with biopsy, pathology showed adenocarcinoma. will need EUS for staging when available. --EGD/Colonoscopy, 11/20/16--showed long stricture in the mid esophagus and distal esophagus, multiple biopsies were performed Pathology revealed invasive adenocarcinoma- distal esophagus (4) Normocytic anemia Status: Acute Plan: --transfuse packed red blood cells if his hemoglobin drops below 8. --iron deficient --will need IV iron. (5) Sepsis Status: Acute Plan: BC, 7. no growth BC, 12/07 no growth --BC, 12/05 +, S. Aureus --had removal of port, + S. 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 Plan 1. monitor CBC 2. supportive care 3. await EUS per GI Attending Statement The exam, history, and the medical decision-making described in the above note were completed with the assistance of the mid-level provider. I reviewed and agree with the findings presented. I attest that I had a [id number] encounter with the patient on the same day, and personally performed and documented my assessment and findings in the medical record. Case discussed in Tumor Conference Will treat this as early stage esophageal cancer with concurrent chemotherapy and XRT Plan for simulation for radiation treatments Obtain MRI abdomen with contrast when stable patient's daughter present in the room--discussion at length d/w rn Problem Qualifiers (1) Sepsis: Qualified Code: A41.9 - Sepsis, due to unspecified organism Perla Duran Dec 09, 2016 13:25 Brant Bell MD Dec 09, 2016 22:48
--- NOTE | 2016-12-09 14:27 | HHI.PR ---
Subjective Subjective Notes Resting in bed RN at bedside Objective Vitals/I&O Vital Signs Date Time Temp Pulse Resp B/P Pulse Ox O2 Delivery O2 Flow Rate FiO2 12/09/16 07:48 97 Simple Mask 6.00 12/09/16 06:00 82 12/09/16 04:00 98.7 15 149/76 Labs Laboratory Tests Test 12/09/16 04:59 White Blood Count 10.3 Red Blood Count 3.38 Hemoglobin 9.2 Hematocrit 29.1 Mean Corpuscular Volume 86.1 Mean Corpuscular Hemoglobin 27.3 Mean Corpuscular Hemoglobin 31.7 Concent Red Cell Distribution Width 17.4 Platelet Count 142 Mean Platelet Volume 9.2 Neutrophils (%) (Auto) 87.2 Lymphocytes (%) (Auto) 9.2 Monocytes (%) (Auto) 3.1 Eosinophils (%) (Auto) 0.4 Basophils (%) (Auto) 0.1 Neutrophils # (Auto) 9.0 Lymphocytes # (Auto) 0.9 Monocytes # (Auto) 0.3 Eosinophils # (Auto) 0.0 Basophils # (Auto) 0.0 CBC Comment DIFF FINAL Differential Comment Sodium Level 147 Potassium Level 4.3 Chloride Level 111 Carbon Dioxide Level 27.9 Anion Gap 8 Blood Urea Nitrogen 31 Creatinine 0.97 Estimat Glomerular Filtration 79 Rate Random Glucose 156 Calcium Level 8.2 Total Bilirubin 1.0 Direct Bilirubin 0.5 Indirect Bilirubin 0.5 Aspartate Amino Transf 27 (AST/SGOT) Alanine Aminotransferase 28 (ALT/SGPT) Alkaline Phosphatase 86 Total Protein 6.5 Albumin 2.2 Date/Time Procedure Status Source Growth 12/08/16 03:32 Aerobic Blood Culture - Preliminary Resulted Blood Peripheral NO GROWTH IN 1 DAY 12/08/16 03:32 Anaerobic Blood Culture - Preliminary Resulted Blood Peripheral NO GROWTH IN 1 DAY 12/05/16 13:31 Aerobic Blood Culture - Final Resulted Blood Peripheral Staphylococcus Aureus 12/05/16 13:31 Anaerobic Blood Culture - Preliminary Resulted Blood Peripheral NO GROWTH IN 4 DAYS Cardiovascular: Regular Lungs: Clear Abdomen: Non-distended, Non-tender Extremities: Perfused Narrative Exam RIGHT subclavian: s/p port removal; packing removed; wound bed is c/d/i; repacked and dry dressing applied A/P Assessment and Plan 61 year old male s/p Infusaport removal -Dressing change daily: saline soaked 2x2 loosely packed into wound; cover with dry 4x4 and secure with paper tape -Discussed with RN -Will see peripherally Attending Note - Dr. Rich Wound clean Will see intermittently The exam, history, and the medical decision-making described in the above note were completed with the assistance of the mid-level provider. I reviewed and agree with the findings presented. I attest that I had a [id number] encounter with the patient on the same day, and personally performed and documented my assessment and findings in the medical record. Cindy Parekh Dec 09, 2016 14:27 Bebeto Rich MD Dec 12, 2016 18:45
[2016-12-09] MEDS: MORPHINE SULFATE 4 MG/ML INJ IV PUSH PRN (14:54)
[2016-12-09] MEDS: LORazepam 2 MG/ML VIAL IV PUSH PRN ×2 (17:30→22:38)
[2016-12-10] VITALS (30 sets, daily range): BP systolic 98–163; BP diastolic 57–87; PULSE 82–134; RESP 18–34; TEMP 98–99; O2SAT 90–99
[2016-12-10] MEDS: ceFAZolin 2 GM PREMIX 50 ML IV SCH ×4 (00:55→23:57)
[2016-12-10] MEDS: INSULIN ASPART SUPPLEMENTAL SCALE SQ SCH ×7 (00:59→23:26)
[2016-12-10] MEDS: METOPROLOL TARTRATE 5 MG/5 ML VIAL IV PUSH PRN ×3 (01:42→18:56)
[2016-12-10] MEDS: LORazepam 2 MG/ML VIAL IV PUSH PRN ×2 (01:58→06:00)
[2016-12-10] MEDS: RESP: ALBUTEROL 2.5 MG/IPRATROPIUM 0.5 MG NEB (SCH) NEB (03:40)
[2016-12-10] MEDS: DILTIAZEM HCL 60 MG TAB PO SCH ×4 (04:14→21:50)
[2016-12-10] MEDS: CHLORHEXIDINE 0.12% (ORAL KIT) 15 ML CUP MT SCH ×2 (08:38→20:00)
[2016-12-10] MEDS: INSULIN DETEMIR 100 UNITS/ML VIAL SQ SCH ×2 (08:39→20:07)
[2016-12-10] MEDS: THIAMINE HCL 100 MG TAB PO SCH (08:42)
[2016-12-10] MEDS: ASPIRIN 81 MG CHEW TAB PO SCH (08:42)
[2016-12-10] MEDS: POLYETHYLENE GLYCOL 17 GM PKG PO SCH (08:42)
[2016-12-10] MEDS: FOLIC ACID 1 MG TAB PO SCH (08:42)
[2016-12-10] MEDS: RIFAMPIN 150 MG CAP PO SCH ×2 (08:42→20:08)
[2016-12-10] MEDS: ENOXAPARIN SODIUM 40 MG/0.4 ML SYRINGE SQ SCH (08:42)
[2016-12-10] MEDS: CLOPIDOGREL 75 MG TAB PO SCH (08:43)
[2016-12-10] MEDS: METOPROLOL TARTRATE 50 MG TAB PO SCH ×2 (08:43→20:09)
[2016-12-10] MEDS: LEVOFLOXACIN 750 MG TAB PO SCH ×2 (08:43→11:16)
[2016-12-10] MEDS: DOCUSATE SODIUM 50 MG/SENNA 8.6 MG TAB PO SCH ×2 (08:43→20:08)
[2016-12-10] MEDS: MULTIVITAMIN TAB PO SCH (08:43)
[2016-12-10] MEDS: PANTOPRAZOLE SODIUM 40 MG VIAL IV PUSH SCH ×2 (08:44→20:09)
[2016-12-10] MEDS: SODIUM CHLORIDE 0.9% FLUSH 10 ML FLUSH IV FLUSH SCH ×2 (08:44→20:09)
[2016-12-10] MEDS: methylPREDNISolone SOD SUCC 125 MG/2 ML VIAL IV PUSH SCH ×2 (08:44→20:09)
--- NOTE | 2016-12-10 09:13 | HHI.PR ---
Subjective Remarks in no acute distress. however is confused and on restraints. afebrile. d/w the RN and no acute issues over night. Objective Vitals Vital Signs Date Time Temp Pulse Resp B/P Pulse Ox O2 Delivery O2 Flow Rate FiO2 12/10/16 08:20 95 Nasal Cannula 3.00 12/10/16 06:00 95 12/10/16 04:00 98.0 134 18 107/65 93 12/10/16 04:00 134 12/10/16 02:00 122 12/10/16 00:00 98.0 83 23 127/61 97 12/10/16 00:00 83 12/09/16 22:00 90 12/09/16 20:00 89 12/09/16 20:00 98.2 89 18 112/62 96 12/09/16 19:52 95 Nasal Cannula 3.00 12/09/16 19:00 96 Nasal Cannula 2.00 12/09/16 18:00 90 12/09/16 16:00 98.4 89 19 138/72 95 12/09/16 16:00 89 12/09/16 14:00 86 12/09/16 12:00 104 12/09/16 12:00 98.1 104 18 148/67 94 12/09/16 10:00 87 I/O 12/09/16 12/09/16 12/09/16 12/10/16 12/10/16 12/10/16 07:00 15:00 23:00 07:00 15:00 23:00 Intake Total 150 ml 789 ml 240 ml 250 ml Output Total 425 ml 450 ml 800 ml 300 ml Balance -275 ml 339 ml -560 ml -50 ml Intake Oral 100 ml 650 ml 240 ml 150 ml IV Total 50 ml 139 ml 100 ml Output Urine Total 425 ml 450 ml 800 ml 300 ml Result Diagram: 12/09/16 0459 12/09/16 0459 Imaging Last Impressions Chest X-Ray 12/05/16 0600 Signed Impressions: Service Date/Time: Monday, December 05, 2016 03:30 - CONCLUSION: 1. Cardiomegaly and findings of vascular congestion without overt failure. There has been no significant change when compared to the prior exam. Bobby Matias MD Head CT 12/01/16 0000 Signed Impressions: Service Date/Time: Thursday, December 01, 2016 07:59 - CONCLUSION: 1. Questionable area of low attenuation left temporal lobe could be artifact versus less likely infarct. MRI may be warranted based on clinical history. 2. No midline shift or mass effect. 3. No intraparenchymal hemorrhage. Jagjit Tapia MD Brain MRI 12/01/16 0000 Signed Impressions: Service Date/Time: Thursday, December 01, 2016 12:07 - CONCLUSION: Normal examination. Barrett Rodriguez MD Abdomen X-Ray 12/01/16 0000 Signed Impressions: Service Date/Time: Thursday, December 01, 2016 16:48 - CONCLUSION: No evidence of obstruction. Feeding tube tip in the distal stomach. Barrett Rodriguez MD Abdomen/Pelvis CT 11/29/16 2356 Signed Impressions: Service Date/Time: Wednesday, November 30, 2016 01:35 - CONCLUSION: 1. Markedly abnormal appearance of the distal esophagus consistent with the history of esophageal carcinoma. 2. Atherosclerotic calcifications of the aorta and iliac vessels. 3. Cirrhotic appearance to the liver with a mildly nodular contour present. Erik Simon MD CT Angiography 11/29/16 2348 Signed Impressions: Service Date/Time: Wednesday, November 30, 2016 01:35 - CONCLUSION: 1. No evidence for pulmonary embolism or pneumonia. 2. Abnormal appearance of the esophagus with and soft tissue consistent with the history of carcinoma. Erik Simon MD Objective Remarks GENERAL: in no acute distress but confused CARDIOVASCULAR: Regular rate and regular rhythm without murmurs, gallops, or rubs. RESPIRATORY: Clear to auscultation. Breath sounds equal bilaterally. No wheezes , rales, or rhonchi. GASTROINTESTINAL: Abdomen soft, non-tender, nondistended. Normal, active bowel sounds MUSCULOSKELETAL: Extremities without clubbing, cyanosis, or edema. NEURO: confused Medications and IVs Current Medications Sodium Chloride (NS 1000 ml Inj) 1,000 ml @ 999 mls/hr BOLUS ONCE IV Last administered on 11/30/16 01:52; Start 11/30/16 at 00:00; Stop 11/30/16 at 01:00 ; Status DC Morphine Sulfate (Morphine Inj) 4 mg ONCE ONCE IV PUSH Last administered on 01:53; Start 11/30/16 at 01:00; Stop 11/30/16 at 01:01; Status DC Potassium Bicarb/ Potassium Chloride (K-Lyte Cl Eff) 75 meq ONCE ONCE PO Last administered on 11/30/16 01:53; Start 11/30/16 at 01:30; Stop 11/30/16 at 01:31; Status DC Iohexol (Omnipaque 350 Inj) 75 ml STK-MED ONCE IV ; Start 11/30/16 at 01:37; Stop 11/30/16 at 01:38; Status DC Calcium Gluconate 1 gm 1 gm ONCE ONCE IV PUSH Last administered on 11/30/16 02:58; Start 11/30/16 at 02:45; Stop 11/30/16 at 02:46; Status DC Sodium Chloride (NS 1000 ml Inj) 1,000 ml @ 100 mls/hr Q10H IV Last administered on 11/30/16 02:58; Start 11/30/16 at 02:33; Stop 11/30/16 at 13:54 ; Status DC Sodium Chloride (NS Flush) 2 ml UNSCH PRN IV FLUSH FLUSH AFTER USING IV ACCESS Last administered on 12/01/16 21:53; Start 11/30/16 at 02:45 Sodium Chloride (NS Flush) 2 ml BID IV FLUSH Last administered on 12/10/16 08: 44; Start 11/30/16 at 09:00 Ondansetron HCl (Zofran Inj) 4 mg Q6H PRN IVP NAUSEA OR VOMITING; Start at 02:45; Stop 11/30/16 at 13:51; Status DC Acetaminophen (Tylenol) 650 mg Q6H PRN PO FEVER/PAIN SCALE 1 TO 2; Start at 02:45; Stop 11/30/16 at 13:54; Status DC Hydromorphone HCl (Dilaudid Pf Inj) 1 mg Q3H PRN IV Pain 6-10 Last administered on 12/04/16 06:52; Start 11/30/16 at 02:45; Stop 12/04/16 at 09:25 ; Status DC Oxycodone HCl (Roxicodone) 5 mg Q4H PRN PO PAIN SCALE 3 TO 5 Last administered on 12/09/16 12:45; Start 11/30/16 at 02:45 Senna/Docusate Sodium (Rere-Colace) 1 tab BID PO Last administered on 08:43; Start 11/30/16 at 09:00 Magnesium Hydroxide (Milk Of Magnesia Liq) 30 ml Q12H PRN PO MILD - MODERATE CONSTIPATION; Start 11/30/16 at 02:45 Sennosides (Senokot) 17.2 mg Q12H PRN PO MODERATE - SEVERE CONSTIPATION; Start 11/30/16 at 02:45 Bisacodyl (Dulcolax Supp) 10 mg DAILY PRN RECTAL SEVERE CONSITIPATION; Start at 02:45 Lactulose (Lactulose Liq) 30 ml DAILY PRN PO SEVERE CONSITIPATION; Start at 02:45 Pantoprazole Sodium (Protonix Inj) 40 mg Q12H IV PUSH Last administered on 12/10 08:44; Start 11/30/16 at 09:00 Miscellaneous Information Patient in critical care unit? Ass... Q361D .XX ; Start 11/30/16 at 05:15 Chlorhexidine Gluconate (Chlorhexidine 2% Cloth) 3 pack DAILY@04 TOPICAL Last administered on 12/05/16 04:00; Start 12/01/16 at 04:00; Stop 12/05/16 at 04:01 ; Status DC Chlorhexidine Gluconate (Chlorhexidine 2% Cloth) 3 pack UNSCH PRN TOPICAL HYGIENIC CARE; Start 11/30/16 at 05:15; Stop 12/05/16 at 05:12; Status DC Aspirin 81 mg 81 mg ONCE ONCE PO Last administered on 11/30/16 12:19; Start 11/30/16 at 12:00; Stop 11/30/16 at 12:01; Status DC Heparin Sodium/ Dextrose (Heparin-D5W Inj) 250 ml @ 0 mls/hr TITRATE IV Last administered on 11/30/16 12:21; Start 11/30/16 at 12:15; Stop 11/30/16 at 13:49 ; Status DC Heparin Sodium (Porcine) (Heparin Inj) 5,000 units UNSCH PRN IV aPTT less than 25; Start 11/30/16 at 12:15; Stop 11/30/16 at 13:49; Status DC Heparin Sodium (Porcine) (Heparin Inj) 2,500 units UNSCH PRN IV aPTT 25 to 39; Start 11/30/16 at 12:15; Stop 11/30/16 at 13:49; Status DC Heparin Sodium (Porcine) 4000 units 4,000 units ONCE ONCE IV Last administered on 11/30/16 12:19; Start 11/30/16 at 12:15; Stop 11/30/16 at 12:16 ; Status DC Heparin Sodium/ Sodium Chloride (Heparin-NS/Pf Inj) 500 ml @ As Directed STK- MED ONCE .ROUTE Last administered on 11/30/16 12:36; Start 11/30/16 at 12:36; Stop 11/30/16 at 12:37; Status DC Midazolam HCl (Versed Inj) 2 mg STK-MED ONCE .ROUTE Last administered on 12:36; Start 11/30/16 at 12:36; Stop 11/30/16 at 12:37; Status DC Fentanyl Citrate (fentaNYL INJ) 100 mcg STK-MED ONCE .ROUTE Last administered on 11/30/16 12:36; Start 11/30/16 at 12:36; Stop 11/30/16 at 12:37; Status DC Dextrose (D50w (Syr) Inj) 50 ml STK-MED ONCE .ROUTE Last administered on 12:53; Start 11/30/16 at 12:53; Stop 11/30/16 at 12:54; Status DC Phenylephrine HCl (Neosynephrine Inj) 40 mg STK-MED ONCE .ROUTE Last administered on 11/30/16 13:04; Start 11/30/16 at 13:04; Stop 11/30/16 at 13:05 ; Status DC Clopidogrel Bisulfate 600 mg 600 mg STK-MED ONCE .ROUTE ; Start 11/30/16 at 13: 25; Stop 11/30/16 at 13:26; Status DC Sodium Chloride (NS 1000 ml Inj) 1,000 ml @ 125 mls/hr Q8H IV Last administered on 11/30/16 21:51; Start 11/30/16 at 13:42; Stop 11/30/16 at 17:41 ; Status DC Acetaminophen (Tylenol) 325 mg Q4H PRN PO PAIN SCALE 1 TO 2 Last administered on 7/17/17at 17:36; Start 11/30/16 at 13:45 Aspirin (Aspirin Chew) 81 mg DAILY PO Last administered on 12/10/16 08:42; Start 11/30/16 at 13:45 Clopidogrel Bisulfate (Plavix) 600 mg ONCE ONCE PO ; Start 11/30/16 at 13:45; Stop 11/30/16 at 13:47; Status DC Clopidogrel Bisulfate (Plavix) 75 mg DAILY PO Last administered on 12/10/16 08 :43; Start 12/01/16 at 09:00 Miscellaneous Information 1 ONCE ONCE XX ; Start 11/30/16 at 13:45; Stop at 13:49; Status DC Atropine Sulfate (Atropine Inj) 0.5 mg UNSCH PRN IV VAGAL REPONSE; Start at 13:45 Ondansetron HCl (Zofran Inj) 4 mg Q4H PRN IV NAUSEA Last administered on 22:06; Start 11/30/16 at 13:45 Metoprolol Tartrate (Lopressor) 12.5 mg BID PO Last administered on 12/01/16 09:51; Start 11/30/16 at 21:00; Status Hold Atorvastatin Calcium (Lipitor) 10 mg HS PO Last administered on 12/02/16 21:22 ; Start 11/30/16 at 21:00; Status Hold Miscellaneous Information HOLD METFORMIN FOR... Q24H .XX ; Start 11/30/16 at 15: 00; Stop 12/02/16 at 14:59; Status DC Potassium Chloride (KCl 20 Meq Premix Inj) 100 ml @ 50 mls/hr Q2H IV Last administered on 11/30/16 19:24; Start 11/30/16 at 18:00; Stop 11/30/16 at 21:59 ; Status DC Sodium Chloride (NS Flush) 5 ml Q21D IV FLUSH Last administered on 11/30/16 18 :00; Start 11/30/16 at 18:00 Heparin Sodium (Porcine) (Heparin Central Flush) 500 units Q21D IV FLUSH Last administered on 11/30/16 18:04; Start 11/30/16 at 18:00 Sodium Chloride (NS Flush) 5 ml UNSCH PRN IV FLUSH SEE LABEL COMMENTS; Start at 18:00 Heparin Sodium (Porcine) (Heparin Central Flush) 250 units UNSCH PRN IV FLUSH FLUSH AFTER USING IV ACCESS; Start 11/30/16 at 18:00 Lorazepam (Ativan Inj) 0.5 mg ONCE ONCE IV PUSH Last administered on 06:37; Start 12/01/16 at 06:30; Stop 12/01/16 at 06:31; Status DC Lorazepam 0.5 mg 0.5 mg ONCE ONCE IV Last administered on 12/01/16 07:43; Start 12/01/16 at 07:45; Stop 12/01/16 at 07:46; Status DC Potassium Chloride 30 meq/ Sodium Chloride 115 ml @ 38.333 mls/ hr Q3H IV- CENTRAL Last administered on 12/01/16 12:43; Start 12/01/16 at 08:30; Stop at 14:29; Status DC Vancomycin HCl 2100 mg/Sodium Chloride 521 ml @ 250 mls/hr ONCE ONCE IV Last administered on 12/01/16 12:43; Start 12/01/16 at 12:00; Stop 12/01/16 at 14:06 ; Status DC Pharmacy Profile Note 0 ml @ 0 mls/hr UNSCH OTHER ; Start 12/01/16 at 10:30; Status UNV Pharmacy Profile Note 0 ml @ 0 mls/hr UNSCH OTHER ; Start 12/01/16 at 11:00; Stop 12/01/16 at 13:07; Status DC Vancomycin HCl 1250 mg/Sodium Chloride 262.5 ml @ 262.5 mls/ hr Q24H IV ; Start 12/02/16 at 09:00; Stop 12/02/16 at 09:00; Status DC Ceftriaxone Sodium 2000 mg/ Sodium Chloride 100 ml @ 200 mls/hr Q24H IV ; Start 12/01/16 at 14:00; Stop 12/01/16 at 16:10; Status DC Thiamine HCl/ Sodium Chloride (Thiamine Inj/NS Inj) 101 ml @ 101 mls/hr DAILY IV Last administered on 12/01/16 14:09; Start 12/01/16 at 13:00; Stop at 08:28; Status DC Flumazenil (Romazicon Inj) 0.2 mg Q1M PRN IV PUSH SEE LABEL COMMENTS; Start at 13:00 Lorazepam (Ativan) 1 mg Q4H PRN PO CIWA 8 - 10; Start 12/01/16 at 13:00; Stop 12/04/16 at 09:29; Status DC Lorazepam (Ativan Inj) 1 mg Q4H PRN IV PUSH CIWA 8 - 10 Last administered on 21:52; Start 12/01/16 at 13:00; Stop 12/04/16 at 09:29; Status DC Lorazepam (Ativan) 2 mg Q2H PRN PO CIWA 11-14; Start 12/01/16 at 13:00; Stop at 09:29; Status DC Lorazepam (Ativan Inj) 2 mg Q2H PRN IV PUSH CIWA 11-14 Last administered on 04:37; Start 12/01/16 at 13:00; Stop 12/04/16 at 09:29; Status DC Lorazepam (Ativan Inj) 2 mg Q1H PRN IV PUSH CIWA 15-20; Start 12/01/16 at 13:00 ; Stop 12/04/16 at 09:29; Status DC Lorazepam 2 mg 2 mg Q15M PRN IV PUSH CIWA > 20; Start 12/01/16 at 13:00; Stop 12/04/16 at 09:29; Status DC Sodium Chloride 1,000 ml @ 999 mls/hr BOLUS ONCE IV Last administered on 12/01 14:09; Start 12/01/16 at 13:00; Stop 12/01/16 at 14:06; Status DC Sodium Chloride (NS 1000 ml Inj) 1,000 ml @ 999 mls/hr BOLUS ONCE IV Last administered on 12/01/16 14:09; Start 12/01/16 at 13:00; Stop 12/01/16 at 14:06 ; Status DC Morphine Sulfate 8 mg 8 mg STK-MED ONCE .ROUTE Last administered on 12/01/16 14:06; Start 12/01/16 at 14:04; Stop 12/01/16 at 14:05; Status DC Dexmedetomidine HCl/Sodium Chloride (Precedex Inj/NS Inj) 52 ml @ 0 mls/hr TITRATE IV ; Start 12/01/16 at 14:30; Stop 12/03/16 at 07:50; Status DC Albuterol/ Ipratropium (Duoneb Neb) 1 ampule Q6HR NEB NEB Last administered on 12/05/16 15:58; Start 12/01/16 at 16:00; Stop 12/05/16 at 16:00; Status DC Albuterol/ Ipratropium 1 ampule 1 ampule Q2HR NEB PRN NEB SHORTNESS OF BREATH Last administered on 12/02/16 06:55; Start 12/01/16 at 14:30 Cefazolin Sodium/ Dextrose 50 ml @ 100 mls/hr Q8H IV Last administered on 12/03 08:27; Start 12/01/16 at 18:00; Stop 12/06/16 at 09:11; Status DC Pharmacy Profile Note 0 ml @ 0 mls/hr UNSCH OTHER ; Start 12/01/16 at 16:15; Stop 12/03/16 at 10:51; Status DC Sodium Chloride (NS 1000 ml Inj) 1,000 ml @ 50 mls/hr Q20H IV Last administered on 12/04/16 05:40; Start 12/01/16 at 16:30; Stop 12/04/16 at 09:25 ; Status DC Acetaminophen 650 mg 650 mg Q6H PRN PO FEVER Last administered on 12/02/16 01 :07; Start 12/01/16 at 17:30 Vancomycin HCl/ Sodium Chloride (Vancomycin Inj/ NS 500 ml Inj) 521 ml @ 250 mls/hr Q18H IV Last administered on 12/02/16 05:36; Start 12/02/16 at 06:00; Stop 12/02/16 at 11:38; Status DC Miscellaneous Information SPECIFIC LAB TO BE DRAWN:VANCO TROUGH DATE TO... ONCE ONCE .XX ; Start 12/03/16 at 17:45; Stop 12/03/16 at 17:46; Status Cancel Sodium Chloride (NS 1000 ml Inj) 1,000 ml @ 999 mls/hr BOLUS ONCE IV Last administered on 12/02/16 06:30; Start 12/02/16 at 06:30; Stop 12/02/16 at 07:30 ; Status DC Methylprednisolone Sodium Succinate (SoluMEDROL INJ) 125 mg ONCE STAT IV PUSH Last administered on 12/02/16 07:14; Start 12/02/16 at 06:52; Stop 12/02/16 at 06:59; Status DC Methylprednisolone Sodium Succinate (SoluMEDROL INJ) 60 mg Q8HR IV PUSH Last administered on 12/05/16 05:17; Start 12/02/16 at 14:00; Stop 12/05/16 at 09:00 ; Status DC Etomidate (Amidate Inj) 20 mg STK-MED ONCE .ROUTE Last administered on 08:07; Start 12/02/16 at 07:29; Stop 12/02/16 at 07:30; Status DC Midazolam HCl (Versed Inj) 5 mg STK-MED ONCE .ROUTE Last administered on 08:07; Start 12/02/16 at 07:29; Stop 12/02/16 at 07:30; Status DC Rocuronium Temple (Zemuron Inj) 50 mg STK-MED ONCE .ROUTE Last administered on 12/02/16 08:08; Start 12/02/16 at 07:30; Stop 12/02/16 at 07:31; Status DC Enoxaparin Sodium (Lovenox Inj) 40 mg Q24H SQ Last administered on 12/10/16 08 :42; Start 12/02/16 at 09:00 Chlorhexidine Gluconate 15 ml 15 ml BID@08,20 MT Last administered on 08:38; Start 12/02/16 at 08:00 Propofol 100 ml @ 0 mls/hr TITRATE IV Last administered on 12/02/16 19:59; Start 12/02/16 at 08:00; Stop 12/03/16 at 07:50; Status DC Fentanyl Citrate (fentaNYL DRIP) 250 ml @ 0 mls/hr TITRATE IV Last administered on 12/03/16 04:05; Start 12/02/16 at 08:00; Stop 12/04/16 at 09:25 ; Status DC Metoprolol Tartrate 2.5 mg 2.5 mg Q6H PRN IV PUSH HR >110 Last administered on 12/10/16 01:42; Start 12/02/16 at 08:15 Multivitamins/ Thiamine HCl/ Folic Acid/Sodium Chloride (Mvi-12 Inj/ Thiamine Inj/ Folvite Inj/1/2 NS 500 ml Inj) 511.2 ml @ 125 mls/hr DAILY IV Last administered on 12/04/16 09:21; Start 12/02/16 at 09:00; Stop 12/05/16 at 09:00 ; Status DC Sodium Bicarbonate (Sodium Bicarbonate 8.4% Inj) 50 meq STK-MED ONCE .ROUTE ; Start 12/02/16 at 09:06; Stop 12/02/16 at 09:07; Status DC Sodium Bicarbonate 50 meq 50 meq NOW ONCE IV PUSH Last administered on 11:16; Start 12/02/16 at 09:45; Stop 12/02/16 at 09:46; Status DC Vasopressin/ Dextrose (Pitressin Inj/ D5W 100 ml Inj) 100 ml @ 4.5 mls/hr [id number] IV Last administered on 12/03/16 04:17; Start 12/02/16 at 11:04; Stop 12/06/16 at 07:32; Status DC Sodium Bicarbonate (Sodium Bicarbonate 8.4% Inj) 50 meq ONCE ONCE IV PUSH Last administered on 12/02/16 11:38; Start 12/02/16 at 11:15; Stop 12/02/16 at 11:22; Status DC Rocuronium Temple 50 mg 50 mg BOLUS ONCE IV Last administered on 12/02/16 11 :39; Start 12/02/16 at 11:15; Stop 12/02/16 at 11:22; Status DC Sodium Bicarbonate 50 ml @ As Directed STK-MED ONCE .ROUTE Last administered on 12/02/16 15:53; Start 12/02/16 at 11:06; Stop 12/02/16 at 11:07; Status DC Vancomycin HCl 2000 mg/Sodium Chloride 520 ml @ 250 mls/hr Q18H IV Last administered on 12/02/16 23:46; Start 12/03/16 at 00:00; Stop 12/03/16 at 10:51 ; Status DC Norepinephrine Bitartrate (Levophed-Dextrose Drip) 250 ml @ 0 mls/hr TITRATE IV Last administered on 12/03/16 04:05; Start 12/02/16 at 15:15; Stop 12/08/16 at 10:23; Status DC Terbutaline Sulfate 1 mg 1 mg UNSCH PRN SQ For Extravasation; Start 12/02/16 at 15:15 Sodium Bicarbonate/ Sterile Water (Sodium Bicarbonate 8.4% Inj/Sterile Water For Inj) 1,000 ml @ 150 mls/hr Q6H40M IV Last administered on 12/03/16 04:16 ; Start 12/02/16 at 16:00; Stop 12/03/16 at 07:49; Status DC Iohexol (OMNIPAQUE 350 INJ ([employer])) 100 ml STK-MED ONCE OTHER ; Start at 12:30; Stop 12/02/16 at 15:48; Status DC Lidocaine HCl (Xylocaine 1% Inj (50 ml)) 50 ml STK-MED ONCE .ROUTE ; Start 12/02 at 19:06; Stop 12/02/16 at 19:07; Status DC Dextrose (D50w (Vial) Inj) 50 ml UNSCH PRN IV HYPOGLYCEMIA-SEE COMMENTS; Start 12/02/16 at 22:30 Glucagon (Glucagon Inj) 1 mg UNSCH PRN OTHER HYPOGLYCEMIA-SEE COMMENTS; Start 12/02/16 at 22:30 Insulin Aspart 1 1 Q4HR SQ Last administered on 12/10/16 08:00; Start at 00:00 Midazolam HCl (Versed 100 Mg/ ml Inj) 100 ml @ 0 mls/hr TITRATE IV ; Start 12/03 at 08:00; Stop 12/04/16 at 09:25; Status DC Polyethylene Glycol (Miralax) 17 gm DAILY PO Last administered on 12/10/16 08: 42; Start 12/04/16 at 09:00 Bumetanide (Bumex Inj) 1 mg STK-MED ONCE .ROUTE ; Start 12/03/16 at 11:46; Stop 12/03/16 at 11:47; Status DC Bumetanide 1 mg 1 mg NOW ONCE IV PUSH ; Start 12/03/16 at 15:00; Stop 12/03/16 at 15:01; Status DC Cefepime HCl/ Sodium Chloride (Maxipime Inj/NS Inj) 100 ml @ 200 mls/hr Q8H IV Last administered on 12/06/16 08:16; Start 12/03/16 at 17:00; Stop 12/06/16 at 09:08; Status DC Bumetanide 1 mg 1 mg ONCE ONCE IV PUSH Last administered on 12/04/16 10:00; Start 12/04/16 at 09:30; Stop 12/04/16 at 09:32; Status DC Potassium Chloride (KCl 40 Meq Premix Inj) 100 ml @ 25 mls/hr Q4H IV ; Start at 10:00; Stop 12/04/16 at 17:59; Status DC Morphine Sulfate 2 mg 2 mg Q3H PRN IV PUSH pain 5-10 Last administered on 05:16; Start 12/04/16 at 09:30; Stop 12/05/16 at 09:01; Status DC Potassium Chloride 100 ml @ 50 mls/hr Q2H PRN IV For Potassium 2.8 - 3.2 mEq/ L Last administered on 12/04/16 21:17; Start 12/04/16 at 09:30 Potassium Chloride (KCl 20 Meq Premix Inj) 100 ml @ 50 mls/hr Q2H PRN IV For Potassium 2.8 - 3.2 mEq/L; Start 12/04/16 at 09:30 Potassium Bicarb/ Potassium Chloride 50 meq 50 meq UNSCH PRN PO For Potassium 3.3 - 3.5 mEq/L; Start 12/04/16 at 09:30 Potassium Chloride 100 ml @ 25 mls/hr UNSCH PRN IV For Potassium 3.3 - 3.5 mEq /L; Start 12/04/16 at 09:30 Potassium Chloride 100 ml @ 50 mls/hr Q2H PRN IV For Potassium 3.3 - 3.5 mEq/L ; Start 12/04/16 at 09:30 Magnesium Sulfate/ Sodium Chloride (Magnesium Sulfate Inj/NS Inj) 100 ml @ 50 mls/hr UNSCH PRN IV For Magnesium 0.9 - 1.1 mg/dL; Start 12/04/16 at 09:30 Magnesium Oxide 800 mg 800 mg UNSCH PRN PO For Magnesium 1.2 - 1.6 mg/dL; Start 12/04/16 at 09:30 Magnesium Sulfate/ Sodium Chloride (Magnesium Sulfate Inj/NS Inj) 100 ml @ 50 mls/hr UNSCH PRN IV For Magnesium 1.2 - 1.6 mg/dL; Start 12/04/16 at 09:30 Potassium Phosphate 2000 mg 2,000 mg Q4H PRN PO For Phosphorus < 2.5 mg/dL; Start 12/04/16 at 09:30 Sodium Phosphate/ Sodium Chloride (Sodium Phosphate Inj/NS 250 ml Inj) 250 ml @ 42 mls/hr UNSCH PRN IV For Phosphorus < 2.5 mg/dL Last administered on 06:41; Start 12/04/16 at 09:30 Potassium Phosphate 2000 mg 2,000 mg UNSCH PRN PO/TUBE SEE LABEL COMMENTS; Start 12/04/16 at 09:30 Potassium Phosphate/Sodium Chloride (Potassium Phosphate Inj/NS 250 ml Inj) 260 ml @ 42 mls/hr UNSCH PRN IV SEE LABEL COMMENTS; Start 12/04/16 at 09:30 Potassium Bicarb/ Potassium Chloride (K-Lyte Cl Eff) 25 meq ONCE ONCE PO ; Start 12/04/16 at 09:30; Stop 12/04/16 at 09:42; Status DC Bumetanide 1 mg 1 mg ONCE ONCE IV PUSH Last administered on 12/04/16 12:32; Start 12/04/16 at 12:00; Stop 12/04/16 at 12:01; Status DC Calcium Gluconate/ Sodium Chloride (Calcium Gluconate Inj/NS Inj) 110 ml @ 110 mls/hr ONCE ONCE IV Last administered on 12/05/16 10:29; Start 12/05/16 at 09 :30; Stop 12/05/16 at 10:29; Status DC Methylprednisolone Sodium Succinate (SoluMEDROL INJ) 40 mg Q12HR IV PUSH Last administered on 12/10/16 08:44; Start 12/05/16 at 09:00 Thiamine HCl (Vitamin B1) 100 mg DAILY PO Last administered on 12/10/16 08:42 ; Start 12/05/16 at 09:00 Multivitamins (Theragran) 1 tab DAILY PO Last administered on 12/10/16 08:43; Start 12/05/16 at 09:00 Folic Acid (Folate) 1 mg DAILY PO Last administered on 12/10/16 08:42; Start 12/05/16 at 09:00 Morphine Sulfate (Morphine Inj) 2 mg Q2H PRN IV PUSH pain 5-10 Last administered on 12/09/16 14:54; Start 12/05/16 at 10:30 Albuterol/ Ipratropium 1 ampule 1 ampule Q4HR NEB NEB Last administered on 03:40; Start 12/06/16 at 08:00; Stop 12/10/16 at 08:00; Status DC Sodium Chloride (1/2 NS 1000 ml Inj) 1,000 ml @ 125 mls/hr Q8H IV Last administered on 12/07/16 21:33; Start 12/06/16 at 07:30; Stop 12/08/16 at 10:23 ; Status DC Rifampin 300 mg 300 mg Q12HR PO Last administered on 12/10/16 08:42; Start at 09:15 Cefazolin Sodium/ Dextrose (Ancef 2 Gm Premix) 50 ml @ 100 mls/hr Q8H IV Last administered on 12/10/16 00:55; Start 12/06/16 at 10:00 Levofloxacin (Levaquin) 750 mg Q24H PO Last administered on 12/09/16 10:14; Start 12/06/16 at 10:00; Stop 12/13/16 at 09:59 Insulin Detemir (Levemir Inj) 5 units Q12HR SQ Last administered on 12/10/16 08:39; Start 12/07/16 at 09:00 Methylnaltrexone Temple (Relistor Inj) 12 mg ONCE ONCE SQ Last administered on 12/07/16 16:58; Start 12/07/16 at 15:00; Stop 12/07/16 at 15:11; Status DC Metoprolol Tartrate (Lopressor Inj) 2.5 mg ONCE ONCE IV PUSH Last administered on 12/08/16 15:15; Start 12/08/16 at 15:00; Stop 12/08/16 at 15:01 ; Status DC Diltiazem HCl (Cardizem Inj) 10 mg ONCE ONCE IV ; Start 12/08/16 at 15:15; Stop 12/08/16 at 16:09; Status DC Metoprolol Tartrate (Lopressor) 50 mg Q12HR PO Last administered on 12/10/16 08:43; Start 12/08/16 at 21:00 Diltiazem HCl (Cardizem) 60 mg Q6H PO Last administered on 12/10/16 04:14; Start 12/09/16 at 05:00 Lorazepam (Ativan Inj) 1 mg Q4H PRN IV PUSH ANXIETY AND/OR AGITATION Last administered on 12/10/16t 06:00; Start 12/09/16 at 15:15 A/P Assessment and Plan 61-year-old male with a medical history significant for left parotid gland squamous cell cancer initially admitted for intractable abdominal pain, lactic acidemia and other nonspecific complaints. The patient was found to have and NSTEMI and later found to be septic. He went into septic shock secondary to MSSA bacteremia from [id number]-f-[id number] infection. Patient is status post ICU course including intubation and extubation. He is status post port removal. He is hemodynamically stable and has been transferred to the hospitalist service. Septic shock-resolved MSSA bacteremia Yqchft-b-Nimb infection - s/p removal of [id number] - Catheter tip culture blood culture and wound culture also positive for MSSA - Continue abx per ID (Ancef, Rifampin, Levaquin PO) will need abx for 6 weeks from port removal. Acute metabolic encephalopathy Agitation - Morphine for pain control - Encephalopathy most likely secondary to severe sepsis - Continue Thiamine, MVI, folic acid - Ativan PRN agitation Acute hypoxemic respiratory failure Acute COPD exacerbation Tobacco abuse - Emergently intubated and placed on mechanical ventilation 12/02/16, extubated successfully 12/03/16 - Continue with oxygen keep sat >92% - DuoNeb every 4 hours and when necessary - IV Solu-Medrol 40 q12 hr for COPD exacerbation - ABX per ID NSTEMI - s/p PCI to LCx by Dr. Krause on 11/30/16 - Continue ASA/Plavix/metoprolol - 2-D echo no veg, EF 50-55% -check lipid panel Invasive adenocarcinoma of the esophagus Liver cirrhosis - On Honey thickened diet - GI following- has biopsy proven invasive adenocarcinoma of esophagus - IV Protonix - Oncology following. 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 Bell is following - Status post surgical resection for L parotid SCC. -plan for chemo and radiation per oncology Diabetes Hypothyroidism - Electrolyte replacement per protocol - SSI ( medium scale) Levemir 5units BID for glycemic control - Continue thyroid supplementation PROPH: - Bilateral lower extremity SCDs. - Lovenox/Protonix needs to be monitor closely- will keep in ICU for now. Zamzam Kim MD Dec 10, 2016 09:13
--- NOTE | 2016-12-10 10:31 | HHI.IDPN ---
Subjective Subjective Remarks Patient is a 61-year-old male, currently lethargic, and unable to give any history. History has been obtained from the chart. 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 It was reportedly malignant as well. He presented to the hospital complaining of generalized weakness, abdominal pain and progressive swallowing difficulty over the last 3 weeks. Evaluation in the emergency room revealed abnormal EKG, and he underwent cardiac catheterization. He had non-ST MT, and had revascularization with stent placement of his left circumflex artery. Patient is spiked to 103, and there were 2 blood cultures done yesterday that are now reported as growing staph aureus. Patient currently has a Saxena catheter. There is a lot of sediment in his urine, and his urine culture is also showing staph aureus. CT of the abdomen and pelvis did not show any abnormality except the soft tissue mass in the esophagus. He had atherosclerosis of his vasculature. There was also evidence of possible liver cirrhosis. Patient is being evaluated for chemotherapy and radiation, but he has not been started. He had an [id number] placement on November 12 on his right upper chest. Notes reviewed D/W RN Temps ok On nasal O2 Very confused and agitated this morning - taking off gowns and does not want any covers; got Ativan early AM Last (+) BC 12/05 Port removed 12/02 CXR 12/05, stable Antibiotics Ancef/rifampin Levaquin Lines Port - removed 12/02 Past Medical History Hypertension Hyperlipidemia CAD Diabetes 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 and he had good margins Recurrent squamous cell carcinoma on the left face, with involvement of the parotid gland, status post surgery at [facility] Recently found to have esophageal mass Past Surgical History Appendectomy Liver Biopsy Resection of a squamous cell carcinoma on the left cheek in 2011 Extensive surgery on the left face and neck for recurrent squamous cell carcinoma Port Placement November 12, 2016 Allergies: Coded Allergies: Penicillin (Verified Allergy, Mild, Hives, 11/12/16) Objective . Vital Signs Date Time Temp Pulse Resp B/P Pulse Ox O2 Delivery O2 Flow Rate FiO2 12/10/16 08:20 95 Nasal Cannula 3.00 12/10/16 06:00 95 12/10/16 04:00 98.0 134 18 107/65 93 12/10/16 04:00 134 12/10/16 02:00 122 12/10/16 00:00 98.0 83 23 127/61 97 12/10/16 00:00 83 12/09/16 22:00 90 12/09/16 20:00 89 12/09/16 20:00 98.2 89 18 112/62 96 12/09/16 19:52 95 Nasal Cannula 3.00 12/09/16 19:00 96 Nasal Cannula 2.00 12/09/16 18:00 90 12/09/16 16:00 98.4 89 19 138/72 95 12/09/16 16:00 89 12/09/16 14:00 86 12/09/16 12:00 104 12/09/16 12:00 98.1 104 18 148/67 94 12/09/16 12/09/16 12/10/16 15:00 23:00 07:00 Intake Total 789 ml 240 ml 250 ml Output Total 450 ml 800 ml 300 ml Balance 339 ml -560 ml -50 ml Intake Oral 650 ml 240 ml 150 ml IV Total 139 ml 100 ml Output Urine Total 450 ml 800 ml 300 ml . Laboratory Tests Test 12/09/16 04:59 White Blood Count 10.3 TH/MM3 Red Blood Count 3.38 MIL/MM3 Hemoglobin 9.2 GM/DL Hematocrit 29.1 % Mean Corpuscular Volume 86.1 FL Mean Corpuscular Hemoglobin 27.3 PG Mean Corpuscular Hemoglobin 31.7 % Concent Red Cell Distribution Width 17.4 % Platelet Count 142 TH/MM3 Mean Platelet Volume 9.2 FL Neutrophils (%) (Auto) 87.2 % Lymphocytes (%) (Auto) 9.2 % Monocytes (%) (Auto) 3.1 % Eosinophils (%) (Auto) 0.4 % Basophils (%) (Auto) 0.1 % Neutrophils # (Auto) 9.0 TH/MM3 Lymphocytes # (Auto) 0.9 TH/MM3 Monocytes # (Auto) 0.3 TH/MM3 Eosinophils # (Auto) 0.0 TH/MM3 Basophils # (Auto) 0.0 TH/MM3 CBC Comment DIFF FINAL Differential Comment Laboratory Tests Test 12/09/16 04:59 Sodium Level 147 MEQ/L Potassium Level 4.3 MEQ/L Chloride Level 111 MEQ/L Carbon Dioxide Level 27.9 MEQ/L Anion Gap 8 MEQ/L Blood Urea Nitrogen 31 MG/DL Creatinine 0.97 MG/DL Estimat Glomerular Filtration 79 ML/MIN Rate Random Glucose 156 MG/DL Calcium Level 8.2 MG/DL Total Bilirubin 1.0 MG/DL Direct Bilirubin 0.5 MG/DL Indirect Bilirubin 0.5 MG/DL Aspartate Amino Transf 27 U/L (AST/SGOT) Alanine Aminotransferase 28 U/L (ALT/SGPT) Alkaline Phosphatase 86 U/L Total Protein 6.5 GM/DL Albumin 2.2 GM/DL Microbiology Date/Time Procedure Status Source Growth 12/07/16 16:42 Aerobic Blood Culture - Preliminary Resulted Blood Peripheral NO GROWTH IN 2 DAYS 12/07/16 16:42 Anaerobic Blood Culture - Preliminary Resulted Blood Peripheral NO GROWTH IN 2 DAYS 12/08/16 03:32 Aerobic Blood Culture - Preliminary Resulted Blood Peripheral NO GROWTH IN 1 DAY 12/08/16 03:32 Anaerobic Blood Culture - Preliminary Resulted Blood Peripheral NO GROWTH IN 1 DAY Imaging Chest X-Ray 12/05/16 0600 Signed Impressions: Service Date/Time: Monday, December 05, 2016 03:30 - CONCLUSION: 1. Cardiomegaly and findings of vascular congestion without overt failure. There has been no significant change when compared to the prior exam. Bobby Matias MD Head CT 12/01/16 0000 Signed Impressions: Service Date/Time: Thursday, December 01, 2016 07:59 - CONCLUSION: 1. Questionable area of low attenuation left temporal lobe could be artifact versus less likely infarct. MRI may be warranted based on clinical history. 2. No midline shift or mass effect. 3. No intraparenchymal hemorrhage. Jagjit Tapia MD Brain MRI 12/01/16 0000 Signed Impressions: Service Date/Time: Thursday, December 01, 2016 12:07 - CONCLUSION: Normal examination. Barrett Rodriguez MD Abdomen X-Ray 12/01/16 0000 Signed Impressions: Service Date/Time: Thursday, December 01, 2016 16:48 - CONCLUSION: No evidence of obstruction. Feeding tube tip in the distal stomach. Barrett Rodriguez MD Abdomen/Pelvis CT 11/29/16 0296 Signed Impressions: Service Date/Time: Wednesday, November 30, 2016 01:35 - CONCLUSION: 1. Markedly abnormal appearance of the distal esophagus consistent with the history of esophageal carcinoma. 2. Atherosclerotic calcifications of the aorta and iliac vessels. 3. Cirrhotic appearance to the liver with a mildly nodular contour present. Erik Simon MD CT Angiography 11/29/16 2348 Signed Impressions: Service Date/Time: Wednesday, November 30, 2016 01:35 - CONCLUSION: 1. No evidence for pulmonary embolism or pneumonia. 2. Abnormal appearance of the esophagus with and soft tissue consistent with the history of carcinoma. Erik Simon MD Chest X-Ray 12/03/16 0600 Signed Impressions: Service Date/Time: Saturday, December 03, 2016 04:43 - CONCLUSION: Increasing consolidation in the left lower lung. Bilateral interstitial changes. Niko Wilcox MD Chest X-Ray 12/03/16 0000 Signed Impressions: Service Date/Time: Saturday, December 03, 2016 07:48 - CONCLUSION: 1. Persistent left retrocardiac density and slight interstitial prominence. Jagjit Tapia MD Chest X-Ray 12/02/16 0000 Signed Impressions: Service Date/Time: Friday, December 02, 2016 15:55 - CONCLUSION: Normal examination with endotracheal tube and central lines in good position. Barrett Rodriguez MD Chest X-Ray 12/02/16 0000 Signed Impressions: Service Date/Time: Friday, December 02, 2016 08:24 - CONCLUSION: Mild perihilar vascular congestion. Endotracheal tube is in good position Barrett Rodriguez MD Chest X-Ray 12/02/16 0000 Signed Impressions: Service Date/Time: Friday, December 02, 2016 06:53 - CONCLUSION: Underinflated examination with atelectasis at the lung bases. Given the technique, no acute abnormality or significant interval change is appreciated. Washington Marroquin MD Physical Exam GENERAL: Awake, confused, responding, has restraints SKIN: Warm and dry. No generalized rash, no ecchymoses. Has embolic lesions in his L big toe no change EYES: Petechia resolved, no hemorrhage. Extraocular movements full and intact. [place]. No scleral icterus. No injection or drainage. EARS, NOSE AND THROAT: Nose without bleeding or purulent nasal discharge. No sinus tenderness. Orally intubated NECK: Trachea midline. Supple and not tender, no meningeal signs CARDIOVASCULAR: Regular rate and rhythm. No murmurs, rubs or gallops heard. RESPIRATORY: Coarse BS bilaterally. Previous port with intact dressing, healing ABDOMEN: Soft, mildly distended. Mild diffuse tenderness, no guarding. Bowel sounds present and normoactive. No rebound. No organomegaly. EXTREMITIES: No clubbing, cyanosis. Has mild pedal edema. No calf tenderness. Well perfused and warm. NEUROLOGICAL: Awake, confused PSYCHIATRIC: Confused LINE: no evidence of infection : Saxena in place Assessment & Plan Remarks IMPRESSION Sepsis, with shock has MSSA due to port infection - S/P removal port 12/02 - has new (+) BC Respiratory failure, has L base infiltrate, and GNR in sputum - to complete Rx 12/13 (+) UC with Staph aureus, due to current bacteremia Recurrent squamous cell CA Esophageal CA Lethargy and SOB due to sepsis, better - has acidosis Renal insufficiency, due to sepsis and shock, better Confusion - ?meds RECOMMENDATION Follow new C/S Continue Rifampin, for synergy vs MSSA - follow LFT Continue Levaquin and give 7 days for GNR in sputum - to finish 12/13 Continue IV Ancef He will need 6 weeks IV Abx from date of port removal/last (+) BC for MSSA sepsis Follow temps Monitor progress Repeat 2 BC today D/W RN Carola Nassar MD Dec 10, 2016 10:31 Carola Nassar MD Dec 10, 2016 10:31
[2016-12-10 13:00] LABS: HEMATOCRIT 27.7 % (39.0-51.0); MEAN CELL VOLUME 86.3 FL (80.0-100.0); MEAN CORPUSCULAR HEMOGLOBIN 27.5 PG (27.0-34.0); MEAN CORPUSCULAR HGB CONC 31.9 % (32.0-36.0); PLATELET COUNT 138 TH/MM3 (150-450); RED BLOOD COUNT 3.21 MIL/MM3 (4.50-5.90); RED CELL DISTRIBUTION WIDTH 17.6 % (11.6-17.2); REVIEW FLAG FINAL; WHITE BLOOD COUNT 14.7 TH/MM3 (4.0-11.0)
--- NOTE | 2016-12-10 13:14 | HHI.GIFU ---
Subjective Remarks He seems more agitated today, he is on the edge of the bed, in restraints, asking for help stating he needs to urinate really bad, I tried to explain to him that he has a stuart catheter in, but still insisted. Per nurse, no nausea, vomiting or abd pain. (CarmelitaKaren) Objective Vitals I&O Vital Signs Date Time Temp Pulse Resp B/P Pulse Ox O2 Delivery O2 Flow Rate FiO2 12/10/16 08:20 95 Nasal Cannula 3.00 12/10/16 06:00 95 12/10/16 04:00 98.0 134 18 107/65 93 12/10/16 04:00 134 12/10/16 02:00 122 12/10/16 00:00 98.0 83 23 127/61 97 12/10/16 00:00 83 12/09/16 22:00 90 12/09/16 20:00 89 12/09/16 20:00 98.2 89 18 112/62 96 12/09/16 19:52 95 Nasal Cannula 3.00 12/09/16 19:00 96 Nasal Cannula 2.00 12/09/16 18:00 90 12/09/16 16:00 98.4 89 19 138/72 95 12/09/16 16:00 89 12/09/16 14:00 86 I/O 12/09/16 12/09/16 12/09/16 12/10/16 12/10/16 12/10/16 07:00 15:00 23:00 07:00 15:00 23:00 Intake Total 150 ml 789 ml 240 ml 250 ml Output Total 425 ml 450 ml 800 ml 300 ml Balance -275 ml 339 ml -560 ml -50 ml Intake Oral 100 ml 650 ml 240 ml 150 ml IV Total 50 ml 139 ml 100 ml Output Urine Total 425 ml 450 ml 800 ml 300 ml Laboratory Laboratory Tests Test 12/10/16 12:37 White Blood Count 14.7 Red Blood Count 3.21 Hemoglobin 8.9 Hematocrit 27.7 Mean Corpuscular Volume 86.3 Mean Corpuscular Hemoglobin 27.5 Mean Corpuscular Hemoglobin 31.9 Concent Red Cell Distribution Width 17.6 Platelet Count 138 Mean Platelet Volume 9.7 Date/Time Procedure Status Source Growth 12/08/16 03:32 Aerobic Blood Culture - Preliminary Resulted Blood Peripheral NO GROWTH IN 2 DAYS 12/08/16 03:32 Anaerobic Blood Culture - Preliminary Resulted Blood Peripheral NO GROWTH IN 2 DAYS 12/05/16 13:31 Aerobic Blood Culture - Final Complete Blood Peripheral Staphylococcus Aureus 12/05/16 13:31 Anaerobic Blood Culture - Final Complete Blood Peripheral NO GROWTH IN 5 DAYS Imaging Last Impressions Chest X-Ray 12/05/16 0600 Signed Impressions: Service Date/Time: Monday, December 05, 2016 03:30 - CONCLUSION: 1. Cardiomegaly and findings of vascular congestion without overt failure. There has been no significant change when compared to the prior exam. Bobby Matias MD Head CT 12/01/16 0000 Signed Impressions: Service Date/Time: Thursday, December 01, 2016 07:59 - CONCLUSION: 1. Questionable area of low attenuation left temporal lobe could be artifact versus less likely infarct. MRI may be warranted based on clinical history. 2. No midline shift or mass effect. 3. No intraparenchymal hemorrhage. Jagjit Tapia MD Brain MRI 12/01/16 0000 Signed Impressions: Service Date/Time: Thursday, December 01, 2016 12:07 - CONCLUSION: Normal examination. Barrett Rodriguez MD Abdomen X-Ray 12/01/16 0000 Signed Impressions: Service Date/Time: Thursday, December 01, 2016 16:48 - CONCLUSION: No evidence of obstruction. Feeding tube tip in the distal stomach. Barrett Rodriguez MD Abdomen/Pelvis CT 11/29/16 2356 Signed Impressions: Service Date/Time: Wednesday, November 30, 2016 01:35 - CONCLUSION: 1. Markedly abnormal appearance of the distal esophagus consistent with the history of esophageal carcinoma. 2. Atherosclerotic calcifications of the aorta and iliac vessels. 3. Cirrhotic appearance to the liver with a mildly nodular contour present. Erik Simon MD CT Angiography 11/29/16 5258 Signed Impressions: Service Date/Time: Wednesday, November 30, 2016 01:35 - CONCLUSION: 1. No evidence for pulmonary embolism or pneumonia. 2. Abnormal appearance of the esophagus with and soft tissue consistent with the history of carcinoma. Erik Simon MD Physical Exam HEENT: Normocephalic; atraumatic; no jaundice. CHEST: Resp. even/unlabored. CARDIAC: RRR. ABDOMEN: Soft, mildly distended, nontender; no hepatosplenomegaly; bowel sounds are present in all four quadrants. EXTREMITIES: No clubbing, cyanosis, or edema. SKIN: Normal; no rash; no jaundice. 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 PET Scan (10/28/16)----> negative examination of the head and neck, findings characteristic of esophageal neoplasm. S/P EGD/Colonoscopy (11/20/16)----> There was a long stricture i the mid esophagus and distal esophagus, multiple biopsies were performed, the mucosa of the stomach appeared normal, duodenal mucosa showed no abnormalities in the entire duodenum, retroflexed views revealed a small hiatal hernia; nine sessile polyps ranging from 4-12 mm in size were found at the cecum, in the ascending colon, descending colon, sigmoid colon, and rectum; polypectomy was performed using snare cautery, moderate diverticulosis was noted in the left colon, retroflexed views revealed internal grade I hemorrhoids, a digital rectal exam was performed and revealed no abnormalities of the anus. Pathology revealed invasive adenocarcinoma- distal esophagus, descending colon polyp and rectosigmoid polyp both benign hyperplastic colonic polyp, no adenomatous change or malignancy is seen. D/W Oncology, plan is for EUS when more stable- timing to be determined. Possibly next week. - Dysphagia. ST following, full liquids with honey consistency liquids - Constipation. (+) BM. Miralax - Abnormal imaging of the liver on CT scan, consistent with cirrhosis. Abdomen/ Pelvis CT (11/29/16)----> 1. Markedly abnormal appearance of the distal esophagus consistent with the history of esophageal carcinoma. 2. Atherosclerotic calcifications of the aorta and iliac vessels. 3. Cirrhotic appearance to the liver with a mildly nodular contour present. Unclear if he has hx of cirrhosis. There is mention of hx of HCV in EMR, but patient has had undetectable viral load as far back as 2001. Pt is now awake and able to tell me that he has a history of HCV and was successfully treated with Interferon/ribavirin in the past. Iron saturation 4.1%, Ferritin 124, Hepatitis C antibodies (+), viral load undetectable, TERRIE negative , ASMA < 20.0, AMA neg, Ceruloplasmin 40 and alpha 1 antitrypsin 298. Labs and imaging consistent with cirrhosis. Pt does not currently drink, but states that he was a heavy drinker in the past. T. Bili 1.4, AST 24, ALT 33, Alk Phosph 81. - Sepsis/Bacteremia/UTI. Urine and Bcx with Staphylococcus aureus. S/P removal of infusaport by (12/02). Cefepime - AMS, Acute metabolic encephalopathy. Head CT (12/01/16)-----> 1. Questionable area of low attenuation left temporal lobe could be artifact versus less likely infarct. MRI may be warranted based on clinical history. 2. No midline shift or mass effect. 3. No intraparenchymal hemorrhage. Brain MRI (12/01/16 )----> Normal examination. Lethargic, but awakens and follows commands. Confused. - Resp. Failure. Chest X-Ray (12/05/16)----> 1. Cardiomegaly and findings of vascular congestion without overt failure. There has been no significant change when compared to the prior exam. S/P Extubation on 12/03. O2 5L via n/c. Solumerol, nebs, - NSTEMI, CAD. S/P left heart catheterization (11/30/16) with Dr. Murillo and this revealed RCA 10% lesion mid segment, mild calcifications left main, LAD with calcification from it's proximal segment to its midsegment however, with no significant obstructive lesions, The LAD is giving off to a diagonal which has a 70% lesion in its ostial segment, left circumflex artery with a proximal clot thrombus, S/P percutaneous coronary intervention/bare metal stent to proximal left circumflex. ASA and Plavix, as well as aggressive optimization of coronary artery disease. 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 S/P at [facility] with Dr. Valdovinos in June of 2016----> underwent extensive head and neck surgery involving a parotidectomy and radical neck dissection in September of 2016. Because of high risk features of local recurrence with perineural invasion and positive margins, it was recommended that he have concurrent chemoradiation therapy. He was evaluated by Dr. Cross for radiation and seen by Dr. Bell for oncology. PET Scan ()----> negative examination of the head and neck, findings characteristic of esophageal neoplasm. Direct visualization is recommended. - Hx HTN (now hypotensive), Hyperlipidemia, DM. per attending. 12-08-16- Patient on 3 L of O2, tolerating fulls okay, no n/v or abd pain. 12-09-16- doing good today, up with PT, tolerating diet okay 12-10-16- patient not stable for EUS, on O2 NC, seems confused today PLAN: - mech. chopped diet - as recommended by ST. - EUS when more stable - Cont. PPI - Cont. Miralax - Monitor labs - Supportive care - Further recommendations to follow based on results of above Patient seen and examined by Dr. Tejeda and myself and this note is written on his behalf (Karen Mae) Physician Comments Patient seen and examined Agree with above Continue with current supportive care Monitor labs (Ortiz Tejeda MD) Karen Mae Dec 10, 2016 13:14 Ortiz Tejeda MD Dec 10, 2016 21:26
[2016-12-10 13:16] LABS: BICARBONATE 23.8 MEQ/L (21.0-32.0); POTASSIUM 4.7 MEQ/L (3.5-5.1)
--- NOTE | 2016-12-10 14:50 | PD.ONC.PN ---
Subjective Subjective Remarks AFebrile overnight. Patient resting in room. He went down for XRT simulation today, but was too confused/restless to undergo simulation. Nurse attributes the restlessness to a dose of ativan he received this morning, a possible paradoxical reaction Objective Data Date Time Temp Pulse Resp B/P Pulse Ox O2 Delivery O2 Flow Rate FiO2 12/10/16 08:20 95 Nasal Cannula 3.00 12/10/16 06:00 95 12/10/16 04:00 98.0 134 18 107/65 93 12/10/16 04:00 134 12/10/16 02:00 122 12/10/16 00:00 98.0 83 23 127/61 97 12/10/16 00:00 83 12/09/16 22:00 90 12/09/16 20:00 89 12/09/16 20:00 98.2 89 18 112/62 96 12/09/16 19:52 95 Nasal Cannula 3.00 12/09/16 19:00 96 Nasal Cannula 2.00 12/09/16 18:00 90 12/09/16 16:00 98.4 89 19 138/72 95 12/09/16 16:00 89 12/10/16 12/10/16 12/10/16 07:00 15:00 23:00 Intake Total 250 ml Output Total 300 ml Balance -50 ml Result Diagram: 12/10/16 1237 12/10/16 1237 Laboratory Results Laboratory Tests Test 12/10/16 12:37 White Blood Count 14.7 TH/MM3 Red Blood Count 3.21 MIL/MM3 Hemoglobin 8.9 GM/DL Hematocrit 27.7 % Mean Corpuscular Volume 86.3 FL Mean Corpuscular Hemoglobin 27.5 PG Mean Corpuscular Hemoglobin 31.9 % Concent Red Cell Distribution Width 17.6 % Platelet Count 138 TH/MM3 Mean Platelet Volume 9.7 FL Sodium Level 143 MEQ/L Potassium Level 4.7 MEQ/L Chloride Level 110 MEQ/L Carbon Dioxide Level 23.8 MEQ/L Anion Gap 9 MEQ/L Blood Urea Nitrogen 38 MG/DL Creatinine 1.11 MG/DL Estimat Glomerular Filtration 68 ML/MIN Rate Random Glucose 246 MG/DL Calcium Level 8.2 MG/DL Culture Results Microbiology Date/Time Procedure Status Source Growth 12/07/16 16:42 Aerobic Blood Culture - Preliminary Resulted Blood Peripheral NO GROWTH IN 3 DAYS 12/07/16 16:42 Anaerobic Blood Culture - Preliminary Resulted Blood Peripheral NO GROWTH IN 3 DAYS 12/08/16 03:32 Aerobic Blood Culture - Preliminary Resulted Blood Peripheral NO GROWTH IN 2 DAYS 12/08/16 03:32 Anaerobic Blood Culture - Preliminary Resulted Blood Peripheral NO GROWTH IN 2 DAYS Administered Medications Medications (Trade) Dose Ordered Sig/Geovanny Route PRN Reason Start Time Stop Time Status Last Admin Dose Admin Sodium Chloride (NS Flush) 2 ml UNSCH PRN IV FLUSH FLUSH AFTER USING IV ACCESS 11/30/16 02:45 12/01/16 21:53 Sodium Chloride (NS Flush) 2 ml BID IV FLUSH 11/30/16 09:00 12/10/16 08:44 Oxycodone HCl (Roxicodone) 5 mg Q4H PRN PO PAIN SCALE 3 TO 5 11/30/16 02:45 12/09/16 12:45 Senna/Docusate Sodium (Rere-Colace) 1 tab BID PO 11/30/16 09:00 12/10/16 08:43 Pantoprazole Sodium (Protonix Inj) 40 mg Q12H IV PUSH 11/30/16 09:00 12/10/16 08:44 Acetaminophen (Tylenol) 325 mg Q4H PRN PO PAIN SCALE 1 TO 2 11/30/16 13:45 12/01/16 17:36 Aspirin (Aspirin Chew) 81 mg DAILY PO 11/30/16 13:45 12/10/16 08:42 Clopidogrel Bisulfate (Plavix) 75 mg DAILY PO 12/01/16 09:00 12/10/16 08:43 Ondansetron HCl (Zofran Inj) 4 mg Q4H PRN IV NAUSEA 11/30/16 13:45 12/05/16 22:06 Metoprolol Tartrate (Lopressor) 12.5 mg BID PO 11/30/16 21:00 Hold 12/01/16 09:51 Atorvastatin Calcium (Lipitor) 10 mg HS PO 11/30/16 21:00 Hold 12/02/16 21:22 Sodium Chloride (NS Flush) 5 ml Q21D IV FLUSH 11/30/16 18:00 11/30/16 18:00 Heparin Sodium (Porcine) (Heparin Central Flush) 500 units Q21D IV FLUSH 11/30/16 18:00 11/30/16 18:04 Acetaminophen (Tylenol 650 Mg/ 20 ml Liq) 650 mg Q6H PRN PO FEVER 12/01/16 17:30 12/02/16 01:07 Enoxaparin Sodium (Lovenox Inj) 40 mg Q24H SQ 12/02/16 09:00 12/10/16 08:42 Chlorhexidine Gluconate (Peridex 0.12% Liq) 15 ml BID@08,20 MT 12/02/16 08:00 12/10/16 08:38 Metoprolol Tartrate (Lopressor Inj) 2.5 mg Q6H PRN IV PUSH HR >110 12/02/16 08:15 12/10/16 13:02 Insulin Aspart (NovoLOG SUPPLEMENTAL SCALE) 1 Q4HR SQ 12/03/16 00:00 12/10/16 12:00 Polyethylene Glycol 17 gm 17 gm DAILY PO 12/04/16 09:00 12/10/16 08:42 Potassium Chloride 100 ml @ 50 mls/hr Q2H PRN IV For Potassium 2.8 - 3.2 mEq/L 12/04/16 09:30 12/04/16 21:17 Sodium Phosphate/ Sodium Chloride (Sodium Phosphate Inj/NS 250 ml Inj) 250 ml @ 42 mls/hr UNSCH PRN IV For Phosphorus < 2.5 mg/dL 12/04/16 09:30 12/06/16 06:41 Methylprednisolone Sodium Succinate (SoluMEDROL INJ) 40 mg Q12HR IV PUSH 12/05/16 09:00 12/10/16 08:44 Thiamine HCl (Vitamin B1) 100 mg DAILY PO 12/05/16 09:00 12/10/16 08:42 Multivitamins (Theragran) 1 tab DAILY PO 12/05/16 09:00 12/10/16 08:43 Folic Acid (Folate) 1 mg DAILY PO 12/05/16 09:00 12/10/16 08:42 Morphine Sulfate (Morphine Inj) 2 mg Q2H PRN IV PUSH pain 5-10 12/05/16 10:30 12/09/16 14:54 Rifampin 300 mg 300 mg Q12HR PO 12/06/16 09:15 12/10/16 08:42 Cefazolin Sodium/ Dextrose (Ancef 2 Gm Premix) 50 ml @ 100 mls/hr Q8H IV 12/06/16 10:00 12/10/16 11:15 Levofloxacin (Levaquin) 750 mg Q24H PO 12/06/16 10:00 12/13/16 09:59 12/10/16 11:16 Insulin Detemir (Levemir Inj) 5 units Q12HR SQ 12/07/16 09:00 12/10/16 08:39 Metoprolol Tartrate (Lopressor) 50 mg Q12HR PO 12/08/16 21:00 12/10/16 08:43 Diltiazem HCl (Cardizem) 60 mg Q6H PO 12/09/16 05:00 12/10/16 09:49 Lorazepam (Ativan Inj) 1 mg Q4H PRN IV PUSH ANXIETY AND/OR AGITATION 12/09/16 15:15 12/10/16 06:00 Objective Remarks GENERAL: chronically ill male lying in bed, appears fatigued. SKIN: Warm and dry. bandage, right chest wall, c/d/i. HEAD: Normocephalic. EYES: No injection or drainage. NECK: Supple, trachea midline. CARDIOVASCULAR: Regular rate and rhythm. RESPIRATORY: anterior ray clear. On 3 O2 via NC GASTROINTESTINAL: Abdomen soft, non-tender, nondistended. EXTREMITIES: No cyanosis. NEUROLOGICAL: awake and alert. normal speech. Assessment/Plan Problem List: (1) NSTEMI (non-ST elevated myocardial infarction) Status: Acute Plan: --had elevated troponin and ST-segment changes consistent with acute NM. --s/p cardiac cath, stent placement to proximal left circumflex --cardiology following --on plavix and ASA (2) SCC (squamous cell carcinoma) Status: Acute Plan: --has a head and neck, lung malignancy which was locally advanced. --received definitive treatment with surgery. Post surgery he had positive margins and some poor risk features and he was about to get concurrent chemotherapy and radiation and adjuvantly to achieve local control of the disease--waiting to receive concurrent chemo/XRT until we have biopsied the esophageal mass --PET scan to stage his disease prior to treatment showed an esophageal mass (3) Esophageal mass Status: Acute Plan: --concerning for primary esophageal cancer. --patient had OP EGD with biopsy, pathology showed adenocarcinoma. will need EUS for staging when available. --EGD/Colonoscopy, 11/20/16--showed long stricture in the mid esophagus and distal esophagus, multiple biopsies were performed Pathology revealed invasive adenocarcinoma- distal esophagus --plan for XRT simulation once more stable. also plan for EUS (4) Normocytic anemia Status: Acute Plan: --transfuse packed red blood cells if his hemoglobin drops below 8. --iron deficient --will need IV iron. (5) Sepsis Status: Acute Plan: BC, 12.08 no growth BC, 12/07 no growth --BC, 12/05 +, S. Aureus --had removal of port, + S. aureus --on Ancef + Levaquin (6) Debilitated patient Status: Acute Plan: --weakened d/t prolonged hospitalization, will likely need rehab. (7) Altered mental status Status: Acute Plan: --possibly paradoxical rxn to ativan. 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 Plan 1. monitor CBC 2. supportive care 3. will reattempt simulation next week. Attending Statement The exam, history, and the medical decision-making described in the above note were completed with the assistance of the mid-level provider. I reviewed and agree with the findings presented. I attest that I had a [id number] encounter with the patient on the same day, and personally performed and documented my assessment and findings in the medical record. Confused/agintated simulation for XRT delayed Problem Qualifiers (1) Sepsis: Qualified Code: A41.9 - Sepsis, due to unspecified organism (2) Altered mental status: Qualified Code: R41.0 - Disorientation Perla Duran Dec 10, 2016 14:50 Brant Bell MD Dec 10, 2016 23:33
[2016-12-10] MEDS: MORPHINE SULFATE 4 MG/ML INJ IV PUSH PRN ×2 (15:14→19:20)
[2016-12-10] MEDS ORDERED: HALOPERIDOL LACTATE 5 MG/ML AMP IM PRN (17:00)
[2016-12-11] VITALS (13 sets, daily range): BP systolic 104–181; BP diastolic 56–89; PULSE 72–148; RESP 15–25; TEMP 98.5–99.1; O2SAT 93–99
[2016-12-11] MEDS: MORPHINE SULFATE 4 MG/ML INJ IV PUSH PRN ×3 (03:13→23:14)
[2016-12-11] MEDS: DILTIAZEM HCL 60 MG TAB PO SCH ×4 (03:13→22:21)
[2016-12-11] MEDS: INSULIN ASPART SUPPLEMENTAL SCALE SQ SCH ×6 (03:36→23:12)
[2016-12-11 04:21] LABS: AUTOMATED NEUTROPHIL # 8.7 TH/MM3 (1.8-7.7); BASOPHIL % 0.1 % (0.0-2.0); EOSINOPHIL % 0.1 % (0.0-4.0); HEMO FLAGS DIFF FINAL; LYMPH % 8.9 % (9.0-44.0); LYMPHOCYTE # 0.9 TH/MM3 (1.0-4.8); MEAN CELL VOLUME 85.9 FL (80.0-100.0); MEAN CORPUSCULAR HEMOGLOBIN 27.6 PG (27.0-34.0); MEAN CORPUSCULAR HGB CONC 32.1 % (32.0-36.0); MONO % 3.6 % (0.0-8.0); NEUT % 87.3 % (16.0-70.0); PLATELET COUNT 117 TH/MM3 (150-450); RED BLOOD COUNT 3.03 MIL/MM3 (4.50-5.90); RED CELL DISTRIBUTION WIDTH 17.4 % (11.6-17.2); WHITE BLOOD COUNT 9.9 TH/MM3 (4.0-11.0)
[2016-12-11 04:35] LABS: BICARBONATE 24.9 MEQ/L (21.0-32.0); POTASSIUM 4.4 MEQ/L (3.5-5.1)
[2016-12-11 04:38] LABS: HDL CHOLESTEROL 24.3 MG/DL (40.0-60.0)
[2016-12-11] MEDS: CHLORHEXIDINE 0.12% (ORAL KIT) 15 ML CUP MT SCH ×2 (08:00→19:05)
--- NOTE | 2016-12-11 08:50 | HHI.PR ---
Subjective Remarks in no acute distress. seems more alert although still not fully oriented. denies pain. afebrile. Objective Vitals Vital Signs Date Time Temp Pulse Resp B/P Pulse Ox O2 Delivery O2 Flow Rate FiO2 12/11/16 06:00 73 12/11/16 04:00 98.7 127 25 104/56 98 12/11/16 04:00 87 12/11/16 02:00 87 12/11/16 00:00 98.9 111 25 140/80 98 12/11/16 00:00 87 12/10/16 22:00 87 12/10/16 20:00 87 12/10/16 20:00 98.7 87 25 125/67 98 12/10/16 19:00 96 Nasal Cannula 3.00 12/10/16 18:00 122 12/10/16 17:00 89 12/10/16 16:49 97 Nasal Cannula 3.00 12/10/16 16:00 124 12/10/16 16:00 99.0 124 25 134/68 98 12/10/16 15:31 128 12/10/16 15:31 128 29 136/72 97 12/10/16 15:19 18 12/10/16 15:15 93 12/10/16 15:00 92 12/10/16 15:00 92 31 153/70 98 12/10/16 14:45 90 27 144/68 99 12/10/16 14:45 90 12/10/16 14:30 90 25 143/70 12/10/16 14:16 86 28 150/67 12/10/16 14:00 87 22 151/72 12/10/16 14:00 87 12/10/16 13:45 86 29 141/71 12/10/16 13:30 125 34 140/74 92 12/10/16 13:30 125 12/10/16 13:15 124 32 127/69 12/10/16 13:00 126 30 158/87 91 12/10/16 13:00 126 12/10/16 12:00 82 12/10/16 12:00 98.1 82 22 108/65 91 12/10/16 11:21 82 29 98/58 90 12/10/16 10:00 130 28 163/77 98 12/10/16 10:00 130 12/10/16 09:00 94 12/10/16 09:00 94 24 135/69 91 I/O 12/10/16 12/10/16 12/10/16 12/11/16 12/11/16 12/11/16 07:00 15:00 23:00 07:00 15:00 23:00 Intake Total 250 ml 685 ml 375 ml Output Total 300 ml 1075 ml 475 ml Balance -50 ml -390 ml -100 ml Intake Oral 150 ml 460 ml 250 ml IV Total 100 ml 225 ml 125 ml Output Urine Total 300 ml 1075 ml 475 ml # Bowel Movements 1 Result Diagram: 12/11/16 0329 12/11/16 0329 Imaging Last Impressions Chest X-Ray 12/05/16 0600 Signed Impressions: Service Date/Time: Monday, December 05, 2016 03:30 - CONCLUSION: 1. Cardiomegaly and findings of vascular congestion without overt failure. There has been no significant change when compared to the prior exam. Bobby Matias MD Head CT 12/01/16 0000 Signed Impressions: Service Date/Time: Thursday, December 01, 2016 07:59 - CONCLUSION: 1. Questionable area of low attenuation left temporal lobe could be artifact versus less likely infarct. MRI may be warranted based on clinical history. 2. No midline shift or mass effect. 3. No intraparenchymal hemorrhage. Jagjit Tapia MD Brain MRI 12/01/16 0000 Signed Impressions: Service Date/Time: Thursday, December 01, 2016 12:07 - CONCLUSION: Normal examination. Barrett Rodriguez MD Abdomen X-Ray 12/01/16 0000 Signed Impressions: Service Date/Time: Thursday, December 01, 2016 16:48 - CONCLUSION: No evidence of obstruction. Feeding tube tip in the distal stomach. Barrett Rodriguez MD Abdomen/Pelvis CT 11/29/16 [id number] Signed Impressions: Service Date/Time: Wednesday, November 30, 2016 01:35 - CONCLUSION: 1. Markedly abnormal appearance of the distal esophagus consistent with the history of esophageal carcinoma. 2. Atherosclerotic calcifications of the aorta and iliac vessels. 3. Cirrhotic appearance to the liver with a mildly nodular contour present. Erik Simon MD CT Angiography 11/29/16 0244 Signed Impressions: Service Date/Time: Wednesday, November 30, 2016 01:35 - CONCLUSION: 1. No evidence for pulmonary embolism or pneumonia. 2. Abnormal appearance of the esophagus with and soft tissue consistent with the history of carcinoma. Erik Simon MD Objective Remarks GENERAL: in no acute distress but confused CARDIOVASCULAR: Regular rate and regular rhythm without murmurs, gallops, or rubs. RESPIRATORY: Clear to auscultation. Breath sounds equal bilaterally. No wheezes , rales, or rhonchi. GASTROINTESTINAL: Abdomen soft, non-tender, nondistended. Normal, active bowel sounds MUSCULOSKELETAL: Extremities without clubbing, cyanosis, or edema. NEURO: confused Medications and IVs Current Medications Sodium Chloride (NS 1000 ml Inj) 1,000 ml @ 999 mls/hr BOLUS ONCE IV Last administered on 11/30/16 01:52; Start 11/30/16 at 00:00; Stop 11/30/16 at 01:00 ; Status DC Morphine Sulfate (Morphine Inj) 4 mg ONCE ONCE IV PUSH Last administered on 01:53; Start 11/30/16 at 01:00; Stop 11/30/16 at 01:01; Status DC Potassium Bicarb/ Potassium Chloride (K-Lyte Cl Eff) 75 meq ONCE ONCE PO Last administered on 11/30/16 01:53; Start 11/30/16 at 01:30; Stop 11/30/16 at 01:31; Status DC Iohexol (Omnipaque 350 Inj) 75 ml STK-MED ONCE IV ; Start 11/30/16 at 01:37; Stop 11/30/16 at 01:38; Status DC Calcium Gluconate 1 gm 1 gm ONCE ONCE IV PUSH Last administered on 11/30/16 02:58; Start 11/30/16 at 02:45; Stop 11/30/16 at 02:46; Status DC Sodium Chloride (NS 1000 ml Inj) 1,000 ml @ 100 mls/hr Q10H IV Last administered on 11/30/16 02:58; Start 11/30/16 at 02:33; Stop 11/30/16 at 13:54 ; Status DC Sodium Chloride (NS Flush) 2 ml UNSCH PRN IV FLUSH FLUSH AFTER USING IV ACCESS Last administered on 12/01/16 21:53; Start 11/30/16 at 02:45 Sodium Chloride (NS Flush) 2 ml BID IV FLUSH Last administered on 12/10/16 20: 09; Start 11/30/16 at 09:00 Ondansetron HCl (Zofran Inj) 4 mg Q6H PRN IVP NAUSEA OR VOMITING; Start at 02:45; Stop 11/30/16 at 13:51; Status DC Acetaminophen (Tylenol) 650 mg Q6H PRN PO FEVER/PAIN SCALE 1 TO 2; Start at 02:45; Stop 11/30/16 at 13:54; Status DC Hydromorphone HCl (Dilaudid Pf Inj) 1 mg Q3H PRN IV Pain 6-10 Last administered on 12/04/16 06:52; Start 11/30/16 at 02:45; Stop 12/04/16 at 09:25 ; Status DC Oxycodone HCl (Roxicodone) 5 mg Q4H PRN PO PAIN SCALE 3 TO 5 Last administered on 12/09/16 12:45; Start 11/30/16 at 02:45 Senna/Docusate Sodium (Rere-Colace) 1 tab BID PO Last administered on 20:08; Start 11/30/16 at 09:00 Magnesium Hydroxide (Milk Of Magnesia Liq) 30 ml Q12H PRN PO MILD - MODERATE CONSTIPATION; Start 11/30/16 at 02:45 Sennosides (Senokot) 17.2 mg Q12H PRN PO MODERATE - SEVERE CONSTIPATION; Start 11/30/16 at 02:45 Bisacodyl (Dulcolax Supp) 10 mg DAILY PRN RECTAL SEVERE CONSITIPATION; Start at 02:45 Lactulose (Lactulose Liq) 30 ml DAILY PRN PO SEVERE CONSITIPATION; Start at 02:45 Pantoprazole Sodium (Protonix Inj) 40 mg Q12H IV PUSH Last administered on 12/10 20:09; Start 11/30/16 at 09:00 Miscellaneous Information Patient in critical care unit? Ass... Q361D .XX ; Start 11/30/16 at 05:15 Chlorhexidine Gluconate (Chlorhexidine 2% Cloth) 3 pack DAILY@04 TOPICAL Last administered on 12/05/16 04:00; Start 12/01/16 at 04:00; Stop 12/05/16 at 04:01 ; Status DC Chlorhexidine Gluconate (Chlorhexidine 2% Cloth) 3 pack UNSCH PRN TOPICAL HYGIENIC CARE; Start 11/30/16 at 05:15; Stop 12/05/16 at 05:12; Status DC Aspirin 81 mg 81 mg ONCE ONCE PO Last administered on 11/30/16 12:19; Start 11/30/16 at 12:00; Stop 11/30/16 at 12:01; Status DC Heparin Sodium/ Dextrose (Heparin-D5W Inj) 250 ml @ 0 mls/hr TITRATE IV Last administered on 11/30/16 12:21; Start 11/30/16 at 12:15; Stop 11/30/16 at 13:49 ; Status DC Heparin Sodium (Porcine) (Heparin Inj) 5,000 units UNSCH PRN IV aPTT less than 25; Start 11/30/16 at 12:15; Stop 11/30/16 at 13:49; Status DC Heparin Sodium (Porcine) (Heparin Inj) 2,500 units UNSCH PRN IV aPTT 25 to 39; Start 11/30/16 at 12:15; Stop 11/30/16 at 13:49; Status DC Heparin Sodium (Porcine) 4000 units 4,000 units ONCE ONCE IV Last administered on 11/30/16 12:19; Start 11/30/16 at 12:15; Stop 11/30/16 at 12:16 ; Status DC Heparin Sodium/ Sodium Chloride (Heparin-NS/Pf Inj) 500 ml @ As Directed STK- MED ONCE .ROUTE Last administered on 11/30/16 12:36; Start 11/30/16 at 12:36; Stop 11/30/16 at 12:37; Status DC Midazolam HCl (Versed Inj) 2 mg STK-MED ONCE .ROUTE Last administered on 12:36; Start 11/30/16 at 12:36; Stop 11/30/16 at 12:37; Status DC Fentanyl Citrate (fentaNYL INJ) 100 mcg STK-MED ONCE .ROUTE Last administered on 11/30/16 12:36; Start 11/30/16 at 12:36; Stop 11/30/16 at 12:37; Status DC Dextrose (D50w (Syr) Inj) 50 ml STK-MED ONCE .ROUTE Last administered on 12:53; Start 11/30/16 at 12:53; Stop 11/30/16 at 12:54; Status DC Phenylephrine HCl (Neosynephrine Inj) 40 mg STK-MED ONCE .ROUTE Last administered on 11/30/16 13:04; Start 11/30/16 at 13:04; Stop 11/30/16 at 13:05 ; Status DC Clopidogrel Bisulfate 600 mg 600 mg STK-MED ONCE .ROUTE ; Start 11/30/16 at 13: 25; Stop 11/30/16 at 13:26; Status DC Sodium Chloride (NS 1000 ml Inj) 1,000 ml @ 125 mls/hr Q8H IV Last administered on 11/30/16 21:51; Start 11/30/16 at 13:42; Stop 11/30/16 at 17:41 ; Status DC Acetaminophen (Tylenol) 325 mg Q4H PRN PO PAIN SCALE 1 TO 2 Last administered on 12/01/16 17:36; Start 11/30/16 at 13:45 Aspirin (Aspirin Chew) 81 mg DAILY PO Last administered on 12/10/16 08:42; Start 11/30/16 at 13:45 Clopidogrel Bisulfate (Plavix) 600 mg ONCE ONCE PO ; Start 11/30/16 at 13:45; Stop 11/30/16 at 13:47; Status DC Clopidogrel Bisulfate (Plavix) 75 mg DAILY PO Last administered on 12/10/16 08 :43; Start 12/01/16 at 09:00 Miscellaneous Information 1 ONCE ONCE XX ; Start 11/30/16 at 13:45; Stop at 13:49; Status DC Atropine Sulfate (Atropine Inj) 0.5 mg UNSCH PRN IV VAGAL REPONSE; Start at 13:45 Ondansetron HCl (Zofran Inj) 4 mg Q4H PRN IV NAUSEA Last administered on 22:06; Start 11/30/16 at 13:45 Metoprolol Tartrate (Lopressor) 12.5 mg BID PO Last administered on 12/01/16 09:51; Start 11/30/16 at 21:00; Status Hold Atorvastatin Calcium (Lipitor) 10 mg HS PO Last administered on 12/02/16 21:22 ; Start 11/30/16 at 21:00; Status Hold Miscellaneous Information HOLD METFORMIN FOR... Q24H .XX ; Start 11/30/16 at 15: 00; Stop 12/02/16 at 14:59; Status DC Potassium Chloride (KCl 20 Meq Premix Inj) 100 ml @ 50 mls/hr Q2H IV Last administered on 11/30/16 19:24; Start 11/30/16 at 18:00; Stop 11/30/16 at 21:59 ; Status DC Sodium Chloride (NS Flush) 5 ml Q21D IV FLUSH Last administered on 11/30/16 18 :00; Start 11/30/16 at 18:00 Heparin Sodium (Porcine) (Heparin Central Flush) 500 units Q21D IV FLUSH Last administered on 11/30/16 18:04; Start 11/30/16 at 18:00 Sodium Chloride (NS Flush) 5 ml UNSCH PRN IV FLUSH SEE LABEL COMMENTS; Start at 18:00 Heparin Sodium (Porcine) (Heparin Central Flush) 250 units UNSCH PRN IV FLUSH FLUSH AFTER USING IV ACCESS; Start 11/30/16 at 18:00 Lorazepam (Ativan Inj) 0.5 mg ONCE ONCE IV PUSH Last administered on 06:37; Start 12/01/16 at 06:30; Stop 12/01/16 at 06:31; Status DC Lorazepam 0.5 mg 0.5 mg ONCE ONCE IV Last administered on 12/01/16 07:43; Start 12/01/16 at 07:45; Stop 12/01/16 at 07:46; Status DC Potassium Chloride 30 meq/ Sodium Chloride 115 ml @ 38.333 mls/ hr Q3H IV- CENTRAL Last administered on 12/01/16 12:43; Start 12/01/16 at 08:30; Stop at 14:29; Status DC Vancomycin HCl 2100 mg/Sodium Chloride 521 ml @ 250 mls/hr ONCE ONCE IV Last administered on 12/01/16 12:43; Start 12/01/16 at 12:00; Stop 12/01/16 at 14:06 ; Status DC Pharmacy Profile Note 0 ml @ 0 mls/hr UNSCH OTHER ; Start 12/01/16 at 10:30; Status UNV Pharmacy Profile Note 0 ml @ 0 mls/hr UNSCH OTHER ; Start 12/01/16 at 11:00; Stop 12/01/16 at 13:07; Status DC Vancomycin HCl 1250 mg/Sodium Chloride 262.5 ml @ 262.5 mls/ hr Q24H IV ; Start 12/02/16 at 09:00; Stop 12/02/16 at 09:00; Status DC Ceftriaxone Sodium 2000 mg/ Sodium Chloride 100 ml @ 200 mls/hr Q24H IV ; Start 12/01/16 at 14:00; Stop 12/01/16 at 16:10; Status DC Thiamine HCl/ Sodium Chloride (Thiamine Inj/NS Inj) 101 ml @ 101 mls/hr DAILY IV Last administered on 12/01/16 14:09; Start 12/01/16 at 13:00; Stop at 08:28; Status DC Flumazenil (Romazicon Inj) 0.2 mg Q1M PRN IV PUSH SEE LABEL COMMENTS; Start at 13:00 Lorazepam (Ativan) 1 mg Q4H PRN PO CIWA 8 - 10; Start 12/01/16 at 13:00; Stop 12/04/16 at 09:29; Status DC Lorazepam (Ativan Inj) 1 mg Q4H PRN IV PUSH CIWA 8 - 10 Last administered on 21:52; Start 12/01/16 at 13:00; Stop 12/04/16 at 09:29; Status DC Lorazepam (Ativan) 2 mg Q2H PRN PO CIWA 11-14; Start 12/01/16 at 13:00; Stop at 09:29; Status DC Lorazepam (Ativan Inj) 2 mg Q2H PRN IV PUSH CIWA 11-14 Last administered on 04:37; Start 12/01/16 at 13:00; Stop 12/04/16 at 09:29; Status DC Lorazepam (Ativan Inj) 2 mg Q1H PRN IV PUSH CIWA 15-20; Start 12/01/16 at 13:00 ; Stop 12/04/16 at 09:29; Status DC Lorazepam 2 mg 2 mg Q15M PRN IV PUSH CIWA > 20; Start 12/01/16 at 13:00; Stop 12/04/16 at 09:29; Status DC Sodium Chloride 1,000 ml @ 999 mls/hr BOLUS ONCE IV Last administered on 12/01 14:09; Start 12/01/16 at 13:00; Stop 12/01/16 at 14:06; Status DC Sodium Chloride (NS 1000 ml Inj) 1,000 ml @ 999 mls/hr BOLUS ONCE IV Last administered on 12/01/16 14:09; Start 12/01/16 at 13:00; Stop 12/01/16 at 14:06 ; Status DC Morphine Sulfate 8 mg 8 mg STK-MED ONCE .ROUTE Last administered on 12/01/16 14:06; Start 12/01/16 at 14:04; Stop 12/01/16 at 14:05; Status DC Dexmedetomidine HCl/Sodium Chloride (Precedex Inj/NS Inj) 52 ml @ 0 mls/hr TITRATE IV ; Start 12/01/16 at 14:30; Stop 12/03/16 at 07:50; Status DC Albuterol/ Ipratropium (Duoneb Neb) 1 ampule Q6HR NEB NEB Last administered on 12/05/16 15:58; Start 12/01/16 at 16:00; Stop 12/05/16 at 16:00; Status DC Albuterol/ Ipratropium 1 ampule 1 ampule Q2HR NEB PRN NEB SHORTNESS OF BREATH Last administered on 12/02/16 06:55; Start 12/01/16 at 14:30 Cefazolin Sodium/ Dextrose 50 ml @ 100 mls/hr Q8H IV Last administered on 12/03 08:27; Start 12/01/16 at 18:00; Stop 12/06/16 at 09:11; Status DC Pharmacy Profile Note 0 ml @ 0 mls/hr UNSCH OTHER ; Start 12/01/16 at 16:15; Stop 12/03/16 at 10:51; Status DC Sodium Chloride (NS 1000 ml Inj) 1,000 ml @ 50 mls/hr Q20H IV Last administered on 12/04/16 05:40; Start 12/01/16 at 16:30; Stop 12/04/16 at 09:25 ; Status DC Acetaminophen 650 mg 650 mg Q6H PRN PO FEVER Last administered on 12/02/16 01 :07; Start 12/01/16 at 17:30 Vancomycin HCl/ Sodium Chloride (Vancomycin Inj/ NS 500 ml Inj) 521 ml @ 250 mls/hr Q18H IV Last administered on 12/02/16 05:36; Start 12/02/16 at 06:00; Stop 12/02/16 at 11:38; Status DC Miscellaneous Information SPECIFIC LAB TO BE DRAWN:VANCO TROUGH DATE TO... ONCE ONCE .XX ; Start 12/03/16 at 17:45; Stop 12/03/16 at 17:46; Status Cancel Sodium Chloride (NS 1000 ml Inj) 1,000 ml @ 999 mls/hr BOLUS ONCE IV Last administered on 12/02/16 06:30; Start 12/02/16 at 06:30; Stop 12/02/16 at 07:30 ; Status DC Methylprednisolone Sodium Succinate (SoluMEDROL INJ) 125 mg ONCE STAT IV PUSH Last administered on 12/02/16 07:14; Start 12/02/16 at 06:52; Stop 12/02/16 at 06:59; Status DC Methylprednisolone Sodium Succinate (SoluMEDROL INJ) 60 mg Q8HR IV PUSH Last administered on 12/05/16 05:17; Start 12/02/16 at 14:00; Stop 12/05/16 at 09:00 ; Status DC Etomidate (Amidate Inj) 20 mg STK-MED ONCE .ROUTE Last administered on 08:07; Start 12/02/16 at 07:29; Stop 12/02/16 at 07:30; Status DC Midazolam HCl (Versed Inj) 5 mg STK-MED ONCE .ROUTE Last administered on 08:07; Start 12/02/16 at 07:29; Stop 12/02/16 at 07:30; Status DC Rocuronium [place] (Zemuron Inj) 50 mg STK-MED ONCE .ROUTE Last administered on 12/02/16 08:08; Start 12/02/16 at 07:30; Stop 12/02/16 at 07:31; Status DC Enoxaparin Sodium (Lovenox Inj) 40 mg Q24H SQ Last administered on 12/10/16 08 :42; Start 12/02/16 at 09:00 Chlorhexidine Gluconate 15 ml 15 ml BID@08,20 MT Last administered on 08:38; Start 12/02/16 at 08:00 Propofol 100 ml @ 0 mls/hr TITRATE IV Last administered on 12/02/16 19:59; Start 12/02/16 at 08:00; Stop 12/03/16 at 07:50; Status DC Fentanyl Citrate (fentaNYL DRIP) 250 ml @ 0 mls/hr TITRATE IV Last administered on 12/03/16 04:05; Start 12/02/16 at 08:00; Stop 12/04/16 at 09:25 ; Status DC Metoprolol Tartrate 2.5 mg 2.5 mg Q6H PRN IV PUSH HR >110 Last administered on 12/10/16 18:56; Start 12/02/16 at 08:15 Multivitamins/ Thiamine HCl/ Folic Acid/Sodium Chloride (Mvi-12 Inj/ Thiamine Inj/ Folvite Inj/1/2 NS 500 ml Inj) 511.2 ml @ 125 mls/hr DAILY IV Last administered on 12/04/16 09:21; Start 12/02/16 at 09:00; Stop 12/05/16 at 09:00 ; Status DC Sodium Bicarbonate (Sodium Bicarbonate 8.4% Inj) 50 meq STK-MED ONCE .ROUTE ; Start 12/02/16 at 09:06; Stop 12/02/16 at 09:07; Status DC Sodium Bicarbonate 50 meq 50 meq NOW ONCE IV PUSH Last administered on 11:16; Start 12/02/16 at 09:45; Stop 12/02/16 at 09:46; Status DC Vasopressin/ Dextrose (Pitressin Inj/ D5W 100 ml Inj) 100 ml @ 4.5 mls/hr [id number] IV Last administered on 12/03/16 04:17; Start 12/02/16 at 11:04; Stop 12/06/16 at 07:32; Status DC Sodium Bicarbonate (Sodium Bicarbonate 8.4% Inj) 50 meq ONCE ONCE IV PUSH Last administered on 12/02/16 11:38; Start 12/02/16 at 11:15; Stop 12/02/16 at 11:22; Status DC Rocuronium [place] 50 mg 50 mg BOLUS ONCE IV Last administered on 12/02/16 11 :39; Start 12/02/16 at 11:15; Stop 12/02/16 at 11:22; Status DC Sodium Bicarbonate 50 ml @ As Directed STK-MED ONCE .ROUTE Last administered on 12/02/16 15:53; Start 12/02/16 at 11:06; Stop 12/02/16 at 11:07; Status DC Vancomycin HCl 2000 mg/Sodium Chloride 520 ml @ 250 mls/hr Q18H IV Last administered on 12/02/16 23:46; Start 12/03/16 at 00:00; Stop 12/03/16 at 10:51 ; Status DC Norepinephrine Bitartrate (Levophed-Dextrose Drip) 250 ml @ 0 mls/hr TITRATE IV Last administered on 12/03/16 04:05; Start 12/02/16 at 15:15; Stop 12/08/16 at 10:23; Status DC Terbutaline Sulfate 1 mg 1 mg UNSCH PRN SQ For Extravasation; Start 12/02/16 at 15:15 Sodium Bicarbonate/ Sterile Water (Sodium Bicarbonate 8.4% Inj/Sterile Water For Inj) 1,000 ml @ 150 mls/hr Q6H40M IV Last administered on 12/03/16 04:16 ; Start 12/02/16 at 16:00; Stop 12/03/16 at 07:49; Status DC Iohexol (OMNIPAQUE 350 INJ (Electronic Scale Subassembler)) 100 ml STK-MED ONCE OTHER ; Start at 12:30; Stop 12/02/16 at 15:48; Status DC Lidocaine HCl (Xylocaine 1% Inj (50 ml)) 50 ml STK-MED ONCE .ROUTE ; Start 12/02 at 19:06; Stop 12/02/16 at 19:07; Status DC Dextrose (D50w (Vial) Inj) 50 ml UNSCH PRN IV HYPOGLYCEMIA-SEE COMMENTS; Start 12/02/16 at 22:30 Glucagon (Glucagon Inj) 1 mg UNSCH PRN OTHER HYPOGLYCEMIA-SEE COMMENTS; Start 12/02/16 at 22:30 Insulin Aspart 1 1 Q4HR SQ Last administered on 12/11/16 03:36; Start at 00:00 Midazolam HCl (Versed 100 Mg/ ml Inj) 100 ml @ 0 mls/hr TITRATE IV ; Start 12/03 at 08:00; Stop 12/04/16 at 09:25; Status DC Polyethylene Glycol (Miralax) 17 gm DAILY PO Last administered on 12/10/16 08: 42; Start 12/04/16 at 09:00 Bumetanide (Bumex Inj) 1 mg STK-MED ONCE .ROUTE ; Start 12/03/16 at 11:46; Stop 12/03/16 at 11:47; Status DC Bumetanide 1 mg 1 mg NOW ONCE IV PUSH ; Start 12/03/16 at 15:00; Stop 12/03/16 at 15:01; Status DC Cefepime HCl/ Sodium Chloride (Maxipime Inj/NS Inj) 100 ml @ 200 mls/hr Q8H IV Last administered on 12/06/16 08:16; Start 12/03/16 at 17:00; Stop 12/06/16 at 09:08; Status DC Bumetanide 1 mg 1 mg ONCE ONCE IV PUSH Last administered on 12/04/16 10:00; Start 12/04/16 at 09:30; Stop 12/04/16 at 09:32; Status DC Potassium Chloride (KCl 40 Meq Premix Inj) 100 ml @ 25 mls/hr Q4H IV ; Start at 10:00; Stop 12/04/16 at 17:59; Status DC Morphine Sulfate 2 mg 2 mg Q3H PRN IV PUSH pain 5-10 Last administered on 05:16; Start 12/04/16 at 09:30; Stop 12/05/16 at 09:01; Status DC Potassium Chloride 100 ml @ 50 mls/hr Q2H PRN IV For Potassium 2.8 - 3.2 mEq/ L Last administered on 12/04/16 21:17; Start 12/04/16 at 09:30 Potassium Chloride (KCl 20 Meq Premix Inj) 100 ml @ 50 mls/hr Q2H PRN IV For Potassium 2.8 - 3.2 mEq/L; Start 12/04/16 at 09:30 Potassium Bicarb/ Potassium Chloride 50 meq 50 meq UNSCH PRN PO For Potassium 3.3 - 3.5 mEq/L; Start 12/04/16 at 09:30 Potassium Chloride 100 ml @ 25 mls/hr UNSCH PRN IV For Potassium 3.3 - 3.5 mEq /L; Start 12/04/16 at 09:30 Potassium Chloride 100 ml @ 50 mls/hr Q2H PRN IV For Potassium 3.3 - 3.5 mEq/L ; Start 12/04/16 at 09:30 Magnesium Sulfate/ Sodium Chloride (Magnesium Sulfate Inj/NS Inj) 100 ml @ 50 mls/hr UNSCH PRN IV For Magnesium 0.9 - 1.1 mg/dL; Start 12/04/16 at 09:30 Magnesium Oxide 800 mg 800 mg UNSCH PRN PO For Magnesium 1.2 - 1.6 mg/dL; Start 12/04/16 at 09:30 Magnesium Sulfate/ Sodium Chloride (Magnesium Sulfate Inj/NS Inj) 100 ml @ 50 mls/hr UNSCH PRN IV For Magnesium 1.2 - 1.6 mg/dL; Start 12/04/16 at 09:30 Potassium Phosphate 2000 mg 2,000 mg Q4H PRN PO For Phosphorus < 2.5 mg/dL; Start 12/04/16 at 09:30 Sodium Phosphate/ Sodium Chloride (Sodium Phosphate Inj/NS 250 ml Inj) 250 ml @ 42 mls/hr UNSCH PRN IV For Phosphorus < 2.5 mg/dL Last administered on 06:41; Start 12/04/16 at 09:30 Potassium Phosphate 2000 mg 2,000 mg UNSCH PRN PO/TUBE SEE LABEL COMMENTS; Start 12/04/16 at 09:30 Potassium Phosphate/Sodium Chloride (Potassium Phosphate Inj/NS 250 ml Inj) 260 ml @ 42 mls/hr UNSCH PRN IV SEE LABEL COMMENTS; Start 12/04/16 at 09:30 Potassium Bicarb/ Potassium Chloride (K-Lyte Cl Eff) 25 meq ONCE ONCE PO ; Start 12/04/16 at 09:30; Stop 12/04/16 at 09:42; Status DC Bumetanide 1 mg 1 mg ONCE ONCE IV PUSH Last administered on 12/04/16t 12:32; Start 12/04/16 at 12:00; Stop 12/04/16 at 12:01; Status DC Calcium Gluconate/ Sodium Chloride (Calcium Gluconate Inj/NS Inj) 110 ml @ 110 mls/hr ONCE ONCE IV Last administered on 12/05/16 10:29; Start 12/05/16 at 09 :30; Stop 12/05/16 at 10:29; Status DC Methylprednisolone Sodium Succinate (SoluMEDROL INJ) 40 mg Q12HR IV PUSH Last administered on 12/10/16 20:09; Start 12/05/16 at 09:00 Thiamine HCl (Vitamin B1) 100 mg DAILY PO Last administered on 12/10/16 08:42 ; Start 12/05/16 at 09:00 Multivitamins (Theragran) 1 tab DAILY PO Last administered on 12/10/16 08:43; Start 12/05/16 at 09:00 Folic Acid (Folate) 1 mg DAILY PO Last administered on 12/10/16 08:42; Start 12/05/16 at 09:00 Morphine Sulfate (Morphine Inj) 2 mg Q2H PRN IV PUSH pain 5-10 Last administered on 12/11/16 03:13; Start 12/05/16 at 10:30 Albuterol/ Ipratropium 1 ampule 1 ampule Q4HR NEB NEB Last administered on 03:40; Start 12/06/16 at 08:00; Stop 12/10/16 at 08:00; Status DC Sodium Chloride (1/2 NS 1000 ml Inj) 1,000 ml @ 125 mls/hr Q8H IV Last administered on 12/07/16 21:33; Start 12/06/16 at 07:30; Stop 12/08/16 at 10:23 ; Status DC Rifampin 300 mg 300 mg Q12HR PO Last administered on 12/10/16 20:08; Start at 09:15 Cefazolin Sodium/ Dextrose (Ancef 2 Gm Premix) 50 ml @ 100 mls/hr Q8H IV Last administered on 12/10/16 23:57; Start 12/06/16 at 10:00 Levofloxacin (Levaquin) 750 mg Q24H PO Last administered on 12/10/16 11:16; Start 12/06/16 at 10:00; Stop 12/13/16 at 09:59 Insulin Detemir (Levemir Inj) 5 units Q12HR SQ Last administered on 12/10/16 20:07; Start 12/07/16 at 09:00 Methylnaltrexone [place] (Relistor Inj) 12 mg ONCE ONCE SQ Last administered on 12/07/16 16:58; Start 12/07/16 at 15:00; Stop 12/07/16 at 15:11; Status DC Metoprolol Tartrate (Lopressor Inj) 2.5 mg ONCE ONCE IV PUSH Last administered on 12/08/16 15:15; Start 12/08/16 at 15:00; Stop 12/08/16 at 15:01 ; Status DC Diltiazem HCl (Cardizem Inj) 10 mg ONCE ONCE IV ; Start 12/08/16 at 15:15; Stop 12/08/16 at 16:09; Status DC Metoprolol Tartrate (Lopressor) 50 mg Q12HR PO Last administered on 12/10/16 20:09; Start 12/08/16 at 21:00 Diltiazem HCl (Cardizem) 60 mg Q6H PO Last administered on 12/11/16 03:13; Start 12/09/16 at 05:00 Lorazepam (Ativan Inj) 1 mg Q4H PRN IV PUSH ANXIETY AND/OR AGITATION Last administered on 12/10/16 06:00; Start 12/09/16 at 15:15 Haloperidol Lactate (Haldol Inj) 2 mg Q8H PRN IM AGITATION AND/OR HALLUCINATION ; Start 12/10/16 at 17:00 A/P Assessment and Plan 61-year-old male with a medical history significant for left parotid gland squamous cell cancer initially admitted for intractable abdominal pain, lactic acidemia and other nonspecific complaints. The patient was found to have and NSTEMI and later found to be septic. He went into septic shock secondary to MSSA bacteremia from [id number] infection. Patient is status post ICU course including intubation and extubation. He is status post port removal. He is hemodynamically stable and has been transferred to the hospitalist service. Septic shock-resolved MSSA bacteremia [id number] infection - s/p removal of [id number] - Catheter tip culture blood culture and wound culture also positive for MSSA - Continue abx per ID (Ancef, Rifampin, Levaquin PO) will need abx for 6 weeks from port removal. Acute metabolic encephalopathy Agitation - Morphine for pain control - Encephalopathy most likely secondary to severe sepsis - Continue Thiamine, MVI, folic acid - Ativan/Haldol PRN agitation Acute hypoxemic respiratory failure Acute COPD exacerbation Tobacco abuse - Emergently intubated and placed on mechanical ventilation 12/02/16, extubated successfully 12/03/16 - Continue with oxygen keep sat >92% - DuoNeb every 4 hours and when necessary - taper down IV Solu-Medrol 20 mg q12 hr for COPD exacerbation - ABX per ID NSTEMI - s/p PCI to LCx by Dr. Krause on 11/30/16 - Continue ASA/Plavix/metoprolol - 2-D echo no veg, EF 50-55% Invasive adenocarcinoma of the esophagus Liver cirrhosis - On Honey thickened diet - GI following- has biopsy proven invasive adenocarcinoma of esophagus - IV Protonix - Oncology following. -for radiation simulation when more stable. 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 Bell is following - Status post surgical resection for L parotid SCC. -plan for chemo and radiation per oncology Diabetes Hypothyroidism - Electrolyte replacement per protocol - SSI ( medium scale) Levemir 5units BID for glycemic control - Continue thyroid supplementation PROPH: - Bilateral lower extremity SCDs. - Lovenox/Protonix needs to be monitor closely- will keep in ICU for now. Zamzam Kim MD Dec 11, 2016 08:50
[2016-12-11] MEDS: SODIUM CHLORIDE 0.9% FLUSH 10 ML FLUSH IV FLUSH SCH ×2 (09:00→21:00)
[2016-12-11] MEDS: ceFAZolin 2 GM PREMIX 50 ML IV SCH ×3 (09:00→23:26)
[2016-12-11] MEDS: INSULIN DETEMIR 100 UNITS/ML VIAL SQ SCH ×2 (09:00→19:45)
[2016-12-11] MEDS: DOCUSATE SODIUM 50 MG/SENNA 8.6 MG TAB PO SCH ×2 (09:00→21:01)
[2016-12-11] MEDS: THIAMINE HCL 100 MG TAB PO SCH (09:01)
[2016-12-11] MEDS: ENOXAPARIN SODIUM 40 MG/0.4 ML SYRINGE SQ SCH (09:01)
[2016-12-11] MEDS: RIFAMPIN 150 MG CAP PO SCH ×2 (09:01→21:01)
[2016-12-11] MEDS: PANTOPRAZOLE SODIUM 40 MG VIAL IV PUSH SCH ×2 (09:01→21:01)
[2016-12-11] MEDS: LEVOFLOXACIN 750 MG TAB PO SCH (09:01)
[2016-12-11] MEDS: CLOPIDOGREL 75 MG TAB PO SCH (09:02)
[2016-12-11] MEDS: MULTIVITAMIN TAB PO SCH (09:02)
[2016-12-11] MEDS: ASPIRIN 81 MG CHEW TAB PO SCH (09:02)
[2016-12-11] MEDS: FOLIC ACID 1 MG TAB PO SCH (09:02)
[2016-12-11] MEDS: POLYETHYLENE GLYCOL 17 GM PKG PO SCH (09:02)
[2016-12-11] MEDS: METOPROLOL TARTRATE 50 MG TAB PO SCH ×2 (09:02→21:01)
--- NOTE | 2016-12-11 12:44 | PD.ONC.PN ---
Subjective Subjective Remarks Afebrile overnight. Patient resting in chair next to bed. More alert today, but remains somewhat confused. tells me he can't remember if he is in [place] or [place], for example. Remains in restraints. Objective Data Date Time Temp Pulse Resp B/P Pulse Ox O2 Delivery O2 Flow Rate FiO2 12/11/16 09:58 93 Nasal Cannula 3.00 12/11/16 06:00 73 12/11/16 04:00 98.7 127 25 104/56 98 12/11/16 04:00 87 12/11/16 02:00 87 12/11/16 00:00 98.9 111 25 140/80 98 12/11/16 00:00 87 12/10/16 22:00 87 12/10/16 20:00 87 12/10/16 20:00 98.7 87 25 125/67 98 12/10/16 19:00 96 Nasal Cannula 3.00 12/10/16 18:00 122 12/10/16 17:00 89 12/10/16 16:49 97 Nasal Cannula 3.00 12/10/16 16:00 124 12/10/16 16:00 99.0 124 25 134/68 98 12/10/16 15:31 128 12/10/16 15:31 128 29 136/72 97 12/10/16 15:19 18 12/10/16 15:15 93 12/10/16 15:00 92 12/10/16 15:00 92 31 153/70 98 12/10/16 14:45 90 27 144/68 99 12/10/16 14:45 90 12/10/16 14:30 90 25 143/70 12/10/16 14:16 86 28 150/67 12/10/16 14:00 87 22 151/72 12/10/16 14:00 87 12/10/16 13:45 86 29 141/71 12/10/16 13:30 125 34 140/74 92 12/10/16 13:30 125 12/10/16 13:15 124 32 127/69 12/10/16 13:00 126 30 158/87 91 12/10/16 13:00 126 12/11/16 12/11/16 12/11/16 07:00 15:00 23:00 Intake Total 375 ml Output Total 475 ml Balance -100 ml Result Diagram: 12/11/16 0329 12/11/16 0329 Laboratory Results Laboratory Tests Test 12/11/16 03:29 White Blood Count 9.9 TH/MM3 Red Blood Count 3.03 MIL/MM3 Hemoglobin 8.4 GM/DL Hematocrit 26.0 % Mean Corpuscular Volume 85.9 FL Mean Corpuscular Hemoglobin 27.6 PG Mean Corpuscular Hemoglobin 32.1 % Concent Red Cell Distribution Width 17.4 % Platelet Count 117 TH/MM3 Mean Platelet Volume 9.8 FL Neutrophils (%) (Auto) 87.3 % Lymphocytes (%) (Auto) 8.9 % Monocytes (%) (Auto) 3.6 % Eosinophils (%) (Auto) 0.1 % Basophils (%) (Auto) 0.1 % Neutrophils # (Auto) 8.7 TH/MM3 Lymphocytes # (Auto) 0.9 TH/MM3 Monocytes # (Auto) 0.4 TH/MM3 Eosinophils # (Auto) 0.0 TH/MM3 Basophils # (Auto) 0.0 TH/MM3 CBC Comment DIFF FINAL Differential Comment Sodium Level 141 MEQ/L Potassium Level 4.4 MEQ/L Chloride Level 107 MEQ/L Carbon Dioxide Level 24.9 MEQ/L Anion Gap 9 MEQ/L Blood Urea Nitrogen 38 MG/DL Creatinine 1.01 MG/DL Estimat Glomerular Filtration 76 ML/MIN Rate Random Glucose 207 MG/DL Calcium Level 8.1 MG/DL Triglycerides Level 123 MG/DL Cholesterol Level 100 MG/DL LDL Cholesterol 51 MG/DL HDL Cholesterol 24.3 MG/DL Cholesterol/HDL Ratio 4.11 RATIO Administered Medications Medications (Trade) Dose Ordered Sig/Geovanny Route PRN Reason Start Time Stop Time Status Last Admin Dose Admin Sodium Chloride (NS Flush) 2 ml UNSCH PRN IV FLUSH FLUSH AFTER USING IV ACCESS 11/30/16 02:45 12/01/16 21:53 Sodium Chloride (NS Flush) 2 ml BID IV FLUSH 11/30/16 09:00 12/11/16 09:00 Oxycodone HCl (Roxicodone) 5 mg Q4H PRN PO PAIN SCALE 3 TO 5 11/30/16 02:45 12/09/16 12:45 Senna/Docusate Sodium (Rere-Colace) 1 tab BID PO 11/30/16 09:00 12/11/16 09:00 Pantoprazole Sodium (Protonix Inj) 40 mg Q12H IV PUSH 11/30/16 09:00 12/11/16 09:01 Acetaminophen (Tylenol) 325 mg Q4H PRN PO PAIN SCALE 1 TO 2 11/30/16 13:45 12/01/16 17:36 Aspirin (Aspirin Chew) 81 mg DAILY PO 11/30/16 13:45 12/11/16 09:02 Clopidogrel Bisulfate (Plavix) 75 mg DAILY PO 12/01/16 09:00 12/11/16 09:02 Ondansetron HCl (Zofran Inj) 4 mg Q4H PRN IV NAUSEA 11/30/16 13:45 12/05/16 22:06 Metoprolol Tartrate (Lopressor) 12.5 mg BID PO 11/30/16 21:00 Hold 12/01/16 09:51 Atorvastatin Calcium (Lipitor) 10 mg HS PO 11/30/16 21:00 Hold 12/02/16 21:22 Sodium Chloride (NS Flush) 5 ml Q21D IV FLUSH 11/30/16 18:00 11/30/16 18:00 Heparin Sodium (Porcine) (Heparin Central Flush) 500 units Q21D IV FLUSH 11/30/16 18:00 11/30/16 18:04 Acetaminophen (Tylenol 650 Mg/ 20 ml Liq) 650 mg Q6H PRN PO FEVER 12/01/16 17:30 12/02/16 01:07 Enoxaparin Sodium (Lovenox Inj) 40 mg Q24H SQ 12/02/16 09:00 12/11/16 09:01 Chlorhexidine Gluconate (Peridex 0.12% Liq) 15 ml BID@08,20 MT 12/02/16 08:00 12/10/16 08:38 Metoprolol Tartrate (Lopressor Inj) 2.5 mg Q6H PRN IV PUSH HR >110 12/02/16 08:15 12/10/16 18:56 Insulin Aspart (NovoLOG SUPPLEMENTAL SCALE) 1 Q4HR SQ 12/03/16 00:00 12/11/16 09:03 Polyethylene Glycol 17 gm 17 gm DAILY PO 12/04/16 09:00 12/11/16 09:02 Potassium Chloride 100 ml @ 50 mls/hr Q2H PRN IV For Potassium 2.8 - 3.2 mEq/L 12/04/16 09:30 12/04/16 21:17 Sodium Phosphate/ Sodium Chloride (Sodium Phosphate Inj/NS 250 ml Inj) 250 ml @ 42 mls/hr UNSCH PRN IV For Phosphorus < 2.5 mg/dL 12/04/16 09:30 12/06/16 06:41 Thiamine HCl (Vitamin B1) 100 mg DAILY PO 12/05/16 09:00 12/11/16 09:01 Multivitamins (Theragran) 1 tab DAILY PO 12/05/16 09:00 12/11/16 09:02 Folic Acid (Folate) 1 mg DAILY PO 12/05/16 09:00 12/11/16 09:02 Morphine Sulfate (Morphine Inj) 2 mg Q2H PRN IV PUSH pain 5-10 12/05/16 10:30 12/11/16 03:13 Rifampin 300 mg 300 mg Q12HR PO 12/06/16 09:15 12/11/16 09:01 Cefazolin Sodium/ Dextrose (Ancef 2 Gm Premix) 50 ml @ 100 mls/hr Q8H IV 12/06/16 10:00 12/11/16 09:00 Levofloxacin (Levaquin) 750 mg Q24H PO 12/06/16 10:00 12/13/16 09:59 12/11/16 09:01 Insulin Detemir (Levemir Inj) 5 units Q12HR SQ 12/07/16 09:00 12/11/16 09:00 Metoprolol Tartrate (Lopressor) 50 mg Q12HR PO 12/08/16 21:00 12/11/16 09:02 Diltiazem HCl (Cardizem) 60 mg Q6H PO 12/09/16 05:00 12/11/16 10:53 Lorazepam (Ativan Inj) 1 mg Q4H PRN IV PUSH ANXIETY AND/OR AGITATION 12/09/16 15:15 12/10/16 06:00 Objective Remarks GENERAL: chronically ill male upright in chair next to bed, in restraints. disheveled appearance. SKIN: Warm and dry. HEAD: Normocephalic. EYES: No injection or drainage. NECK: Supple, trachea midline. CARDIOVASCULAR: Regular rate and rhythm. RESPIRATORY: occasional rhonchi. On 3L O2 via [place] GASTROINTESTINAL: Abdomen soft, non-tender, nondistended. EXTREMITIES: No cyanosis. NEUROLOGICAL: awake and alert. normal speech. Assessment/Plan Problem List: (1) NSTEMI (non-ST elevated myocardial infarction) Status: Acute Plan: --had elevated troponin and ST-segment changes consistent with acute [place]. --s/p cardiac cath, stent placement to proximal left circumflex --cardiology following --on plavix and ASA (2) SCC (squamous cell carcinoma) Status: Acute Plan: --has a head and neck, lung malignancy which was locally advanced. --received definitive treatment with surgery. Post surgery he had positive margins and some poor risk features and he was about to get concurrent chemotherapy and radiation and adjuvantly to achieve local control of the disease--waiting to receive concurrent chemo/XRT until we have biopsied the esophageal mass --PET scan to stage his disease prior to treatment showed an esophageal mass (3) Esophageal mass Status: Acute Plan: --concerning for primary esophageal cancer. --patient had OP EGD with biopsy, pathology showed adenocarcinoma. will need EUS for staging when available. --EGD/Colonoscopy, 11/20/16--showed long stricture in the mid esophagus and distal esophagus, multiple biopsies were performed Pathology revealed invasive adenocarcinoma- distal esophagus --plan for XRT simulation once more stable. also plan for EUS (4) Normocytic anemia Status: Acute Plan: --transfuse packed red blood cells if his hemoglobin drops below 8. --iron deficient --will need IV iron. (5) Sepsis Status: Acute Plan: BC, 7.24 no growth BC, 12/07 no growth --BC, 12/05 +, S. Aureus --had removal of port, + S. aureus --on Ancef + Levaquin (6) Debilitated patient Status: Acute Plan: --weakened d/t prolonged hospitalization, will likely need rehab. (7) Altered mental status Status: Acute Plan: --possibly d/t metabolic encephalopathy, sepsis Assessment 61y/o male with a history of head and neck cancer and also with an esophageal mass who presented with abdominal pain, found to have NSTEMI h/o Squamous cell carcinoma of the parotid gland and Esophageal mass. Plan 1. monitor CBC 2. supportive care Attending Statement The exam, history, and the medical decision-making described in the above note were completed with the assistance of the mid-level provider. I reviewed and agree with the findings presented. I attest that I had a [id number] encounter with the patient on the same day, and personally performed and documented my assessment and findings in the medical record. Problem Qualifiers (1) Sepsis: Qualified Code: A41.9 - Sepsis, due to unspecified organism (2) Altered mental status: Qualified Code: R41.0 - Disorientation Perla Duran Dec 11, 2016 12:44 Brant Bell MD Dec 11, 2016 22:47
[2016-12-11] MEDS: METOPROLOL TARTRATE 5 MG/5 ML VIAL IV PUSH PRN (12:47)
--- NOTE | 2016-12-11 15:29 | HHI.IDPN ---
Subjective Subjective Remarks Patient is a 61-year-old male, currently lethargic, and unable to give any history. History has been obtained from the chart. 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 It was reportedly malignant as well. He presented to the hospital complaining of generalized weakness, abdominal pain and progressive swallowing difficulty over the last 3 weeks. Evaluation in the emergency room revealed abnormal EKG, and he underwent cardiac catheterization. He had non-ST [place], and had revascularization with stent placement of his left circumflex artery. Patient is spiked to 103, and there were 2 blood cultures done yesterday that are now reported as growing staph aureus. Patient currently has a Saxena catheter. There is a lot of sediment in his urine, and his urine culture is also showing staph aureus. CT of the abdomen and pelvis did not show any abnormality except the soft tissue mass in the esophagus. He had atherosclerosis of his vasculature. There was also evidence of possible liver cirrhosis. Patient is being evaluated for chemotherapy and radiation, but he has not been started. He had an [id number] placement on November 12 on his right upper chest. Notes reviewed Temps 99+ On nasal O2 Less confused today Up in chair Last (+) BC 12/05 Port removed 12/02 CXR 12/05, stable Antibiotics Ancef/rifampin Levaquin - to finish 12/13 Lines Port - removed 12/02 Past Medical History Hypertension Hyperlipidemia CAD Diabetes 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 and he had good margins Recurrent squamous cell carcinoma on the left face, with involvement of the parotid gland, status post surgery at [facility] Recently found to have esophageal mass Past Surgical History Appendectomy Liver Biopsy Resection of a squamous cell carcinoma on the left cheek in 2011 Extensive surgery on the left face and neck for recurrent squamous cell carcinoma Port Placement November 12, 2016 Allergies: Coded Allergies: Penicillin (Verified Allergy, Mild, Hives, 11/12/16) Objective . Vital Signs Date Time Temp Pulse Resp B/P Pulse Ox O2 Delivery O2 Flow Rate FiO2 12/11/16 14:00 72 12/11/16 12:00 74 12/11/16 12:00 99.1 74 23 181/79 99 12/11/16 10:00 80 12/11/16 09:58 93 Nasal Cannula 3.00 12/11/16 08:00 77 12/11/16 08:00 98.5 77 15 112/71 94 12/11/16 07:00 90 Nasal Cannula 3.00 12/11/16 06:00 73 12/11/16 04:00 98.7 127 25 104/56 98 12/11/16 04:00 87 12/11/16 02:00 87 12/11/16 00:00 98.9 111 25 140/80 98 12/11/16 00:00 87 12/10/16 22:00 87 12/10/16 20:00 87 12/10/16 20:00 98.7 87 25 125/67 98 12/10/16 19:00 96 Nasal Cannula 3.00 12/10/16 18:00 122 12/10/16 17:00 89 12/10/16 16:49 97 Nasal Cannula 3.00 12/10/16 16:00 124 12/10/16 16:00 99.0 124 25 134/68 98 12/10/16 15:31 128 12/10/16 15:31 128 29 136/72 97 12/10/16 12/10/16 12/11/16 15:00 23:00 07:00 Intake Total 685 ml 375 ml Output Total 1075 ml 475 ml Balance -390 ml -100 ml Intake Oral 460 ml 250 ml IV Total 225 ml 125 ml Output Urine Total 1075 ml 475 ml # Bowel Movements 1 . Laboratory Tests Test 12/10/16 12/11/16 12:37 03:29 White Blood Count 14.7 TH/MM3 9.9 TH/MM3 Red Blood Count 3.21 MIL/MM3 3.03 MIL/MM3 Hemoglobin 8.9 GM/DL 8.4 GM/DL Hematocrit 27.7 % 26.0 % Mean Corpuscular Volume 86.3 FL 85.9 FL Mean Corpuscular Hemoglobin 27.5 PG 27.6 PG Mean Corpuscular Hemoglobin 31.9 % 32.1 % Concent Red Cell Distribution Width 17.6 % 17.4 % Platelet Count 138 TH/MM3 117 TH/MM3 Mean Platelet Volume 9.7 FL 9.8 FL Neutrophils (%) (Auto) 87.3 % Lymphocytes (%) (Auto) 8.9 % Monocytes (%) (Auto) 3.6 % Eosinophils (%) (Auto) 0.1 % Basophils (%) (Auto) 0.1 % Neutrophils # (Auto) 8.7 TH/MM3 Lymphocytes # (Auto) 0.9 TH/MM3 Monocytes # (Auto) 0.4 TH/MM3 Eosinophils # (Auto) 0.0 TH/MM3 Basophils # (Auto) 0.0 TH/MM3 CBC Comment DIFF FINAL Differential Comment Laboratory Tests Test 12/10/16 12/11/16 12:37 03:29 Sodium Level 143 MEQ/L 141 MEQ/L Potassium Level 4.7 MEQ/L 4.4 MEQ/L Chloride Level 110 MEQ/L 107 MEQ/L Carbon Dioxide Level 23.8 MEQ/L 24.9 MEQ/L Anion Gap 9 MEQ/L 9 MEQ/L Blood Urea Nitrogen 38 MG/DL 38 MG/DL Creatinine 1.11 MG/DL 1.01 MG/DL Estimat Glomerular Filtration 68 ML/MIN 76 ML/MIN Rate Random Glucose 246 MG/DL 207 MG/DL Calcium Level 8.2 MG/DL 8.1 MG/DL Triglycerides Level 123 MG/DL Cholesterol Level 100 MG/DL LDL Cholesterol 51 MG/DL HDL Cholesterol 24.3 MG/DL Cholesterol/HDL Ratio 4.11 RATIO Imaging Chest X-Ray 12/05/16 0600 Signed Impressions: Service Date/Time: Monday, December 05, 2016 03:30 - CONCLUSION: 1. Cardiomegaly and findings of vascular congestion without overt failure. There has been no significant change when compared to the prior exam. Bobby Matias MD Head CT 12/01/16 0000 Signed Impressions: Service Date/Time: Thursday, December 01, 2016 07:59 - CONCLUSION: 1. Questionable area of low attenuation left temporal lobe could be artifact versus less likely infarct. MRI may be warranted based on clinical history. 2. No midline shift or mass effect. 3. No intraparenchymal hemorrhage. Jagjit Tapia MD Brain MRI 12/01/16 0000 Signed Impressions: Service Date/Time: Thursday, December 01, 2016 12:07 - CONCLUSION: Normal examination. Barrett Rodriguez MD Abdomen X-Ray 12/01/16 0000 Signed Impressions: Service Date/Time: Thursday, December 01, 2016 16:48 - CONCLUSION: No evidence of obstruction. Feeding tube tip in the distal stomach. Barrett Rodriguez MD Abdomen/Pelvis CT 11/29/16 4996 Signed Impressions: Service Date/Time: Wednesday, November 30, 2016 01:35 - CONCLUSION: 1. Markedly abnormal appearance of the distal esophagus consistent with the history of esophageal carcinoma. 2. Atherosclerotic calcifications of the aorta and iliac vessels. 3. Cirrhotic appearance to the liver with a mildly nodular contour present. Erik Simon MD CT Angiography 11/29/16 2348 Signed Impressions: Service Date/Time: Wednesday, November 30, 2016 01:35 - CONCLUSION: 1. No evidence for pulmonary embolism or pneumonia. 2. Abnormal appearance of the esophagus with and soft tissue consistent with the history of carcinoma. Erik Simon MD Chest X-Ray 12/03/16 0600 Signed Impressions: Service Date/Time: Saturday, December 03, 2016 04:43 - CONCLUSION: Increasing consolidation in the left lower lung. Bilateral interstitial changes. Niko Wilcox MD Chest X-Ray 12/03/16 0000 Signed Impressions: Service Date/Time: Saturday, December 03, 2016 07:48 - CONCLUSION: 1. Persistent left retrocardiac density and slight interstitial prominence. Jagjit Tapia MD Chest X-Ray 12/02/16 0000 Signed Impressions: Service Date/Time: Friday, December 02, 2016 15:55 - CONCLUSION: Normal examination with endotracheal tube and central lines in good position. Barrett Rodriguez MD Chest X-Ray 12/02/16 0000 Signed Impressions: Service Date/Time: Friday, December 02, 2016 08:24 - CONCLUSION: Mild perihilar vascular congestion. Endotracheal tube is in good position Barrett Rodriguez MD Chest X-Ray 12/02/16 0000 Signed Impressions: Service Date/Time: Friday, December 02, 2016 06:53 - CONCLUSION: Underinflated examination with atelectasis at the lung bases. Given the technique, no acute abnormality or significant interval change is appreciated. Washington Marroquin MD Physical Exam GENERAL: Awake, up in chair, calm SKIN: Warm and dry. No generalized rash EYES: Extraocular movements full and intact. [place]. No scleral icterus. No injection or drainage. EARS, NOSE AND THROAT: Nose without bleeding or purulent nasal discharge. No sinus tenderness. Orally intubated NECK: Trachea midline. Supple and not tender, no meningeal signs CARDIOVASCULAR: Regular rate and rhythm. No murmurs, rubs or gallops heard. RESPIRATORY: Coarse BS bilaterally. Previous port with intact dressing, healing ABDOMEN: Soft, mildly distended. Mild diffuse tenderness, no guarding. Bowel sounds present and normoactive. No rebound. No organomegaly. EXTREMITIES: No clubbing, cyanosis. Has mild pedal edema. No calf tenderness. Well perfused and warm. NEUROLOGICAL: Awake, confused PSYCHIATRIC: Confused LINE: Dry dressing on previous port site : Saxena in place Assessment & Plan Remarks IMPRESSION Sepsis, with shock has MSSA due to port infection - S/P removal port 12/02 - has new (+) BC Respiratory failure, has L base infiltrate, and GNR in sputum - to complete Rx 12/13 (+) UC with Staph aureus, due to current bacteremia Recurrent squamous cell CA Esophageal CA Lethargy and SOB due to sepsis, better - has acidosis Renal insufficiency, due to sepsis and shock, better Confusion - ?meds RECOMMENDATION Follow new C/S Continue Rifampin, for synergy vs MSSA - follow LFT Continue Levaquin and give 7 days for GNR in sputum - to finish 12/13 Continue IV Ancef He will need 6 weeks IV Abx from date of port removal/last (+) BC for MSSA sepsis Follow temps Monitor progress Follow C/S If stable, may consider PICC Carola Nassar MD Dec 11, 2016 15:29 Carola Nassar MD Dec 11, 2016 15:29
--- NOTE | 2016-12-11 16:54 | HHI.GIFU ---
Subjective Remarks Patient is resting in bed, doing much better today, no O2, however, states, he can use some. Denies N/V, or abd pain (Karen Mae) Objective Vitals I&O Vital Signs Date Time Temp Pulse Resp B/P Pulse Ox O2 Delivery O2 Flow Rate FiO2 12/11/16 14:00 72 12/11/16 12:00 74 12/11/16 12:00 99.1 74 23 181/79 99 12/11/16 10:00 80 12/11/16 09:58 93 Nasal Cannula 3.00 12/11/16 08:00 77 12/11/16 08:00 98.5 77 15 112/71 94 12/11/16 07:00 90 Nasal Cannula 3.00 12/11/16 06:00 73 12/11/16 04:00 98.7 127 25 104/56 98 12/11/16 04:00 87 12/11/16 02:00 87 12/11/16 00:00 98.9 111 25 140/80 98 12/11/16 00:00 87 12/10/16 22:00 87 12/10/16 20:00 87 12/10/16 20:00 98.7 87 25 125/67 98 12/10/16 19:00 96 Nasal Cannula 3.00 12/10/16 18:00 122 12/10/16 17:00 89 I/O 12/10/16 12/10/16 12/10/16 12/11/16 12/11/16 12/11/16 07:00 15:00 23:00 07:00 15:00 23:00 Intake Total 250 ml 685 ml 375 ml Output Total 300 ml 1075 ml 475 ml Balance -50 ml -390 ml -100 ml Intake Oral 150 ml 460 ml 250 ml IV Total 100 ml 225 ml 125 ml Output Urine Total 300 ml 1075 ml 475 ml # Bowel Movements 1 Laboratory Laboratory Tests Test 12/11/16 03:29 White Blood Count 9.9 Red Blood Count 3.03 Hemoglobin 8.4 Hematocrit 26.0 Mean Corpuscular Volume 85.9 Mean Corpuscular Hemoglobin 27.6 Mean Corpuscular Hemoglobin 32.1 Concent Red Cell Distribution Width 17.4 Platelet Count 117 Mean Platelet Volume 9.8 Neutrophils (%) (Auto) 87.3 Lymphocytes (%) (Auto) 8.9 Monocytes (%) (Auto) 3.6 Eosinophils (%) (Auto) 0.1 Basophils (%) (Auto) 0.1 Neutrophils # (Auto) 8.7 Lymphocytes # (Auto) 0.9 Monocytes # (Auto) 0.4 Eosinophils # (Auto) 0.0 Basophils # (Auto) 0.0 CBC Comment DIFF FINAL Differential Comment Sodium Level 141 Potassium Level 4.4 Chloride Level 107 Carbon Dioxide Level 24.9 Anion Gap 9 Blood Urea Nitrogen 38 Creatinine 1.01 Estimat Glomerular Filtration 76 Rate Random Glucose 207 Calcium Level 8.1 Triglycerides Level 123 Cholesterol Level 100 LDL Cholesterol 51 HDL Cholesterol 24.3 Cholesterol/HDL Ratio 4.11 Date/Time Procedure Status Source Growth 12/08/16 03:32 Aerobic Blood Culture - Preliminary Resulted Blood Peripheral NO GROWTH IN 3 DAYS 12/08/16 03:32 Anaerobic Blood Culture - Preliminary Resulted Blood Peripheral NO GROWTH IN 3 DAYS Imaging Last Impressions Chest X-Ray 12/05/16 0600 Signed Impressions: Service Date/Time: Monday, December 05, 2016 03:30 - CONCLUSION: 1. Cardiomegaly and findings of vascular congestion without overt failure. There has been no significant change when compared to the prior exam. Bobby Matias MD Head CT 12/01/16 0000 Signed Impressions: Service Date/Time: Thursday, December 01, 2016 07:59 - CONCLUSION: 1. Questionable area of low attenuation left temporal lobe could be artifact versus less likely infarct. MRI may be warranted based on clinical history. 2. No midline shift or mass effect. 3. No intraparenchymal hemorrhage. Jagjit Tapia MD Brain MRI 12/01/16 0000 Signed Impressions: Service Date/Time: Thursday, December 01, 2016 12:07 - CONCLUSION: Normal examination. Barrett Rodriguez MD Abdomen X-Ray 12/01/16 0000 Signed Impressions: Service Date/Time: Thursday, December 01, 2016 16:48 - CONCLUSION: No evidence of obstruction. Feeding tube tip in the distal stomach. Barrett Rodriguez MD Abdomen/Pelvis CT 11/29/16 [id number] Signed Impressions: Service Date/Time: Wednesday, November 30, 2016 01:35 - CONCLUSION: 1. Markedly abnormal appearance of the distal esophagus consistent with the history of esophageal carcinoma. 2. Atherosclerotic calcifications of the aorta and iliac vessels. 3. Cirrhotic appearance to the liver with a mildly nodular contour present. Erik Simon MD CT Angiography 11/29/16 [id number] Signed Impressions: Service Date/Time: Wednesday, November 30, 2016 01:35 - CONCLUSION: 1. No evidence for pulmonary embolism or pneumonia. 2. Abnormal appearance of the esophagus with and soft tissue consistent with the history of carcinoma. Erik Simon MD Physical Exam HEENT: Normocephalic; atraumatic; no jaundice. CHEST: Resp. even/unlabored. CARDIAC: RRR. ABDOMEN: Soft, mildly distended, nontender; no hepatosplenomegaly; bowel sounds are present in all four quadrants. EXTREMITIES: No clubbing, cyanosis, or edema. SKIN: Normal; no rash; no jaundice. 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 PET Scan (10/28/16)----> negative examination of the head and neck, findings characteristic of esophageal neoplasm. S/P EGD/Colonoscopy (11/20/16)----> There was a long stricture i the mid esophagus and distal esophagus, multiple biopsies were performed, the mucosa of the stomach appeared normal, duodenal mucosa showed no abnormalities in the entire duodenum, retroflexed views revealed a small hiatal hernia; nine sessile polyps ranging from 4-12 mm in size were found at the cecum, in the ascending colon, descending colon, sigmoid colon, and rectum; polypectomy was performed using snare cautery, moderate diverticulosis was noted in the left colon, retroflexed views revealed internal grade I hemorrhoids, a digital rectal exam was performed and revealed no abnormalities of the anus. Pathology revealed invasive adenocarcinoma- distal esophagus, descending colon polyp and rectosigmoid polyp both benign hyperplastic colonic polyp, no adenomatous change or malignancy is seen. D/W Oncology, plan is for EUS when more stable- timing to be determined. Possibly next week. - Dysphagia. ST following, full liquids with honey consistency liquids - Constipation. (+) BM. Miralax - Abnormal imaging of the liver on CT scan, consistent with cirrhosis. Abdomen/ Pelvis CT (11/29/16)----> 1. Markedly abnormal appearance of the distal esophagus consistent with the history of esophageal carcinoma. 2. Atherosclerotic calcifications of the aorta and iliac vessels. 3. Cirrhotic appearance to the liver with a mildly nodular contour present. Unclear if he has hx of cirrhosis. There is mention of hx of HCV in EMR, but patient has had undetectable viral load as far back as 2001. Pt is now awake and able to tell me that he has a history of HCV and was successfully treated with Interferon/ribavirin in the past. Iron saturation 4.1%, Ferritin 124, Hepatitis C antibodies (+), viral load undetectable, TERRIE negative , ASMA < 20.0, AMA neg, Ceruloplasmin 40 and alpha 1 antitrypsin 298. Labs and imaging consistent with cirrhosis. Pt does not currently drink, but states that he was a heavy drinker in the past. T. Bili 1.4, AST 24, ALT 33, Alk Phosph 81. - Sepsis/Bacteremia/UTI. Urine and Bcx with Staphylococcus aureus. S/P removal of infusaport by GS (12/02). Cefepime - AMS, Acute metabolic encephalopathy. Head CT (12/01/16)-----> 1. Questionable area of low attenuation left temporal lobe could be artifact versus less likely infarct. MRI may be warranted based on clinical history. 2. No midline shift or mass effect. 3. No intraparenchymal hemorrhage. Brain MRI (12/01/16 )----> Normal examination. Lethargic, but awakens and follows commands. Confused. - Resp. Failure. Chest X-Ray (12/05/16)----> 1. Cardiomegaly and findings of vascular congestion without overt failure. There has been no significant change when compared to the prior exam. S/P Extubation on 12/03. O2 5L via n/c. Solumerol, nebs, - NSTEMI, CAD. S/P left heart catheterization (11/30/16) with Dr. Murillo and this revealed RCA 10% lesion mid segment, mild calcifications left main, LAD with calcification from it's proximal segment to its midsegment however, with no significant obstructive lesions, The LAD is giving off to a diagonal which has a 70% lesion in its ostial segment, left circumflex artery with a proximal clot thrombus, S/P percutaneous coronary intervention/bare metal stent to proximal left circumflex. ASA and Plavix, as well as aggressive optimization of coronary artery disease. 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 S/P mohs surgery by a transmission engineer in September of 2015 and shortly after this, developed a mass near the surgical area. S/P at [facility] with Dr. Valdovinos in June of 2016----> underwent extensive head and neck surgery involving a parotidectomy and radical neck dissection in September of 2016. Because of high risk features of local recurrence with perineural invasion and positive margins, it was recommended that he have concurrent chemoradiation therapy. He was evaluated by Dr. Cross for radiation and seen by Dr. Bell for oncology. PET Scan ()----> negative examination of the head and neck, findings characteristic of esophageal neoplasm. Direct visualization is recommended. - Hx HTN (now hypotensive), Hyperlipidemia, DM. per attending. 12-08-16- Patient on 3 L of O2, tolerating fulls okay, no n/v or abd pain. 12-09-16- doing good today, up with PT, tolerating diet okay 12-10-16- patient not stable for EUS, on O2 NC, seems confused today 12-11-16 Doing better today, No N/V or abd pain. Not on O2 , he feels as though can use some PLAN: - mech. chopped diet - as recommended by ST. - EUS when more stable - Cont. PPI - Cont. Miralax - Monitor labs - Supportive care - Further recommendations to follow based on results of above Patient seen and examined by Dr. Tejeda and myself and this note is written on his behalf (Karen Mae) Physician Comments Patient seen and examined Agree with above Continue with current supportive care Monitor labs (Ortiz Tejeda MD) Karen Mae Dec 11, 2016 16:54 Ortiz Tejeda MD Dec 11, 2016 19:23
[2016-12-11] MEDS: methylPREDNISolone SOD SUCC 40 MG/1 ML VIAL IV PUSH SCH (21:01)
[2016-12-11] MEDS: RESP: ALBUTEROL 2.5 MG/IPRATROPIUM 0.5 MG NEB (PRN) NEB (22:59)
[2016-12-12] VITALS (13 sets, daily range): BP systolic 130–175; BP diastolic 55–120; PULSE 67–133; RESP 14–24; TEMP 98.1–98.7; O2SAT 94–100
[2016-12-12] MEDS: INSULIN ASPART SUPPLEMENTAL SCALE SQ SCH ×5 (03:25→21:13)
[2016-12-12] MEDS: DILTIAZEM HCL 60 MG TAB PO SCH ×4 (03:26→21:11)
[2016-12-12] MEDS: MORPHINE SULFATE 4 MG/ML INJ IV PUSH PRN ×5 (03:26→18:46)
--- NOTE | 2016-12-12 05:05 | EKG ---
Date Performed: 12/11/2016 Time Performed: 20:27:08 PTAGE: 61 years EKG: Baseline artifact present Sinus rhythm . Possible inferior infarct - age undetermined Low QRS voltages in precordial leads Abnormal ECG Comp ared to prior electrocardiogram, Normal sinus rhythm has replaced atrial fibrillation and lateral ST elevation has improved. PREVIOUS TRACING : 12/02/2016 07.02 DOCTOR: James Stapleton Interpretating Date/Time 12/12/2016 05:04:50
[2016-12-12 05:08] LABS: HEMATOCRIT 26.7 % (39.0-51.0); MEAN CELL VOLUME 87.6 FL (80.0-100.0); MEAN CORPUSCULAR HEMOGLOBIN 27.5 PG (27.0-34.0); MEAN CORPUSCULAR HGB CONC 31.3 % (32.0-36.0); PLATELET COUNT 135 TH/MM3 (150-450); RED BLOOD COUNT 3.05 MIL/MM3 (4.50-5.90); RED CELL DISTRIBUTION WIDTH 17.9 % (11.6-17.2); REVIEW FLAG FINAL; WHITE BLOOD COUNT 8.3 TH/MM3 (4.0-11.0)
[2016-12-12] MEDS: CHLORHEXIDINE 0.12% (ORAL KIT) 15 ML CUP MT SCH ×2 (08:00→20:57)
[2016-12-12] MEDS: ENOXAPARIN SODIUM 40 MG/0.4 ML SYRINGE SQ SCH (08:56)
[2016-12-12] MEDS: POLYETHYLENE GLYCOL 17 GM PKG PO SCH (08:56)
[2016-12-12] MEDS: methylPREDNISolone SOD SUCC 40 MG/1 ML VIAL IV PUSH SCH ×2 (08:57→21:11)
[2016-12-12] MEDS: PANTOPRAZOLE SODIUM 40 MG VIAL IV PUSH SCH ×2 (08:57→21:10)
[2016-12-12] MEDS: LEVOFLOXACIN 750 MG TAB PO SCH (08:58)
[2016-12-12] MEDS: ASPIRIN 81 MG CHEW TAB PO SCH (08:58)
[2016-12-12] MEDS: CLOPIDOGREL 75 MG TAB PO SCH (08:58)
[2016-12-12] MEDS: DOCUSATE SODIUM 50 MG/SENNA 8.6 MG TAB PO SCH ×2 (08:58→21:11)
[2016-12-12] MEDS: METOPROLOL TARTRATE 50 MG TAB PO SCH ×2 (08:58→21:32)
[2016-12-12] MEDS: RIFAMPIN 150 MG CAP PO SCH ×2 (08:58→21:00)
[2016-12-12] MEDS: MULTIVITAMIN TAB PO SCH (08:58)
[2016-12-12] MEDS: FOLIC ACID 1 MG TAB PO SCH (08:58)
[2016-12-12] MEDS: THIAMINE HCL 100 MG TAB PO SCH (08:58)
[2016-12-12] MEDS: INSULIN DETEMIR 100 UNITS/ML VIAL SQ SCH ×2 (08:59→21:00)
[2016-12-12] MEDS: ceFAZolin 2 GM PREMIX 50 ML IV SCH ×2 (08:59→17:05)
[2016-12-12] MEDS: SODIUM CHLORIDE 0.9% FLUSH 10 ML FLUSH IV FLUSH SCH ×2 (08:59→20:57)
--- NOTE | 2016-12-12 08:59 | HHI.PR ---
Subjective Remarks in no acute distress. looks more comfortable and less confused today. complaining of generalized weakness. afebrile. HR elevated. d/w the RN and no acute issues over night. Objective Vitals Vital Signs Date Time Temp Pulse Resp B/P Pulse Ox O2 Delivery O2 Flow Rate FiO2 12/12/16 07:35 100 Nasal Cannula 3.00 12/12/16 06:00 69 12/12/16 04:00 98.7 73 24 175/75 94 12/12/16 04:00 69 12/12/16 02:00 69 12/12/16 00:00 67 12/12/16 00:00 98.6 71 24 148/83 94 12/11/16 22:00 90 12/11/16 20:00 99.1 96 23 172/89 99 12/11/16 20:00 90 12/11/16 20:00 90 Nasal Cannula 3.00 12/11/16 18:00 90 12/11/16 16:00 148 12/11/16 16:00 98.6 148 24 155/74 94 12/11/16 14:00 72 12/11/16 12:00 74 12/11/16 12:00 99.1 74 23 181/79 99 12/11/16 10:00 80 12/11/16 09:58 93 Nasal Cannula 3.00 I/O 12/11/16 12/11/16 12/11/16 12/12/16 12/12/16 12/12/16 07:00 15:00 23:00 07:00 15:00 23:00 Intake Total 375 ml 673 ml 675 ml 675 ml Output Total 475 ml 575 ml 750 ml 650 ml Balance -100 ml 98 ml -75 ml 25 ml Intake Oral 250 ml 430 ml 450 ml 450 ml IV Total 125 ml 243 ml 225 ml 225 ml Output Urine Total 475 ml 575 ml 750 ml 650 ml # Bowel Movements 1 0 0 0 Result Diagram: 12/12/16 0404 12/11/16 0329 Imaging Last Impressions Chest X-Ray 12/05/16 0600 Signed Impressions: Service Date/Time: Monday, December 05, 2016 03:30 - CONCLUSION: 1. Cardiomegaly and findings of vascular congestion without overt failure. There has been no significant change when compared to the prior exam. Bobby Matias MD Head CT 12/01/16 0000 Signed Impressions: Service Date/Time: Thursday, December 01, 2016 07:59 - CONCLUSION: 1. Questionable area of low attenuation left temporal lobe could be artifact versus less likely infarct. MRI may be warranted based on clinical history. 2. No midline shift or mass effect. 3. No intraparenchymal hemorrhage. Jagjit Tapia MD Brain MRI 12/01/16 0000 Signed Impressions: Service Date/Time: Thursday, December 01, 2016 12:07 - CONCLUSION: Normal examination. Barrett Rodriguez MD Abdomen X-Ray 12/01/16 0000 Signed Impressions: Service Date/Time: Thursday, December 01, 2016 16:48 - CONCLUSION: No evidence of obstruction. Feeding tube tip in the distal stomach. Barrett Rodriguez MD Abdomen/Pelvis CT 11/29/16 2356 Signed Impressions: Service Date/Time: Wednesday, November 30, 2016 01:35 - CONCLUSION: 1. Markedly abnormal appearance of the distal esophagus consistent with the history of esophageal carcinoma. 2. Atherosclerotic calcifications of the aorta and iliac vessels. 3. Cirrhotic appearance to the liver with a mildly nodular contour present. Erik Simon MD CT Angiography 11/29/16 2348 Signed Impressions: Service Date/Time: Wednesday, November 30, 2016 01:35 - CONCLUSION: 1. No evidence for pulmonary embolism or pneumonia. 2. Abnormal appearance of the esophagus with and soft tissue consistent with the history of carcinoma. Erik Simon MD Objective Remarks GENERAL: in no acute distress but confused CARDIOVASCULAR: irregular rhythm and tachycardic. RESPIRATORY: Clear to auscultation. Breath sounds equal bilaterally. No wheezes , rales, or rhonchi. GASTROINTESTINAL: Abdomen soft, non-tender, nondistended. Normal, active bowel sounds MUSCULOSKELETAL: Extremities without clubbing, cyanosis, or edema. NEURO: awake, alert and less confused today; oriented to person, place and partly to time. Medications and IVs Current Medications Sodium Chloride (NS 1000 ml Inj) 1,000 ml @ 999 mls/hr BOLUS ONCE IV Last administered on 11/30/16t 01:52; Start 11/30/16 at 00:00; Stop 11/30/16 at 01:00 ; Status DC Morphine Sulfate (Morphine Inj) 4 mg ONCE ONCE IV PUSH Last administered on 01:53; Start 11/30/16 at 01:00; Stop 11/30/16 at 01:01; Status DC Potassium Bicarb/ Potassium Chloride (K-Lyte Cl Eff) 75 meq ONCE ONCE PO Last administered on 11/30/16 01:53; Start 11/30/16 at 01:30; Stop 11/30/16 at 01:31; Status DC Iohexol (Omnipaque 350 Inj) 75 ml STK-MED ONCE IV ; Start 11/30/16 at 01:37; Stop 11/30/16 at 01:38; Status DC Calcium Gluconate 1 gm 1 gm ONCE ONCE IV PUSH Last administered on 11/30/16 02:58; Start 11/30/16 at 02:45; Stop 11/30/16 at 02:46; Status DC Sodium Chloride (NS 1000 ml Inj) 1,000 ml @ 100 mls/hr Q10H IV Last administered on 11/30/16 02:58; Start 11/30/16 at 02:33; Stop 11/30/16 at 13:54 ; Status DC Sodium Chloride (NS Flush) 2 ml UNSCH PRN IV FLUSH FLUSH AFTER USING IV ACCESS Last administered on 12/01/16 21:53; Start 11/30/16 at 02:45 Sodium Chloride (NS Flush) 2 ml BID IV FLUSH Last administered on 12/11/16 21: 00; Start 11/30/16 at 09:00 Ondansetron HCl (Zofran Inj) 4 mg Q6H PRN IVP NAUSEA OR VOMITING; Start at 02:45; Stop 11/30/16 at 13:51; Status DC Acetaminophen (Tylenol) 650 mg Q6H PRN PO FEVER/PAIN SCALE 1 TO 2; Start at 02:45; Stop 11/30/16 at 13:54; Status DC Hydromorphone HCl (Dilaudid Pf Inj) 1 mg Q3H PRN IV Pain 6-10 Last administered on 12/04/16 06:52; Start 11/30/16 at 02:45; Stop 12/04/16 at 09:25 ; Status DC Oxycodone HCl (Roxicodone) 5 mg Q4H PRN PO PAIN SCALE 3 TO 5 Last administered on 12/09/16 12:45; Start 11/30/16 at 02:45 Senna/Docusate Sodium (Rere-Colace) 1 tab BID PO Last administered on 21:01; Start 11/30/16 at 09:00 Magnesium Hydroxide (Milk Of Magnesia Liq) 30 ml Q12H PRN PO MILD - MODERATE CONSTIPATION; Start 11/30/16 at 02:45 Sennosides (Senokot) 17.2 mg Q12H PRN PO MODERATE - SEVERE CONSTIPATION; Start 11/30/16 at 02:45 Bisacodyl (Dulcolax Supp) 10 mg DAILY PRN RECTAL SEVERE CONSITIPATION; Start at 02:45 Lactulose (Lactulose Liq) 30 ml DAILY PRN PO SEVERE CONSITIPATION; Start at 02:45 Pantoprazole Sodium (Protonix Inj) 40 mg Q12H IV PUSH Last administered on 12/11 21:01; Start 11/30/16 at 09:00 Miscellaneous Information Patient in critical care unit? Ass... Q361D .XX ; Start 11/30/16 at 05:15 Chlorhexidine Gluconate (Chlorhexidine 2% Cloth) 3 pack DAILY@04 TOPICAL Last administered on 12/05/16 04:00; Start 12/01/16 at 04:00; Stop 12/05/16 at 04:01 ; Status DC Chlorhexidine Gluconate (Chlorhexidine 2% Cloth) 3 pack UNSCH PRN TOPICAL HYGIENIC CARE; Start 11/30/16 at 05:15; Stop 12/05/16 at 05:12; Status DC Aspirin 81 mg 81 mg ONCE ONCE PO Last administered on 11/30/16 12:19; Start 11/30/16 at 12:00; Stop 11/30/16 at 12:01; Status DC Heparin Sodium/ Dextrose (Heparin-D5W Inj) 250 ml @ 0 mls/hr TITRATE IV Last administered on 11/30/16 12:21; Start 11/30/16 at 12:15; Stop 11/30/16 at 13:49 ; Status DC Heparin Sodium (Porcine) (Heparin Inj) 5,000 units UNSCH PRN IV aPTT less than 25; Start 11/30/16 at 12:15; Stop 11/30/16 at 13:49; Status DC Heparin Sodium (Porcine) (Heparin Inj) 2,500 units UNSCH PRN IV aPTT 25 to 39; Start 11/30/16 at 12:15; Stop 11/30/16 at 13:49; Status DC Heparin Sodium (Porcine) 4000 units 4,000 units ONCE ONCE IV Last administered on 11/30/16 12:19; Start 11/30/16 at 12:15; Stop 11/30/16 at 12:16 ; Status DC Heparin Sodium/ Sodium Chloride (Heparin-NS/Pf Inj) 500 ml @ As Directed STK- MED ONCE .ROUTE Last administered on 11/30/16 12:36; Start 11/30/16 at 12:36; Stop 11/30/16 at 12:37; Status DC Midazolam HCl (Versed Inj) 2 mg STK-MED ONCE .ROUTE Last administered on 12:36; Start 11/30/16 at 12:36; Stop 11/30/16 at 12:37; Status DC Fentanyl Citrate (fentaNYL INJ) 100 mcg STK-MED ONCE .ROUTE Last administered on 11/30/16 12:36; Start 11/30/16 at 12:36; Stop 11/30/16 at 12:37; Status DC Dextrose (D50w (Syr) Inj) 50 ml STK-MED ONCE .ROUTE Last administered on 12:53; Start 11/30/16 at 12:53; Stop 11/30/16 at 12:54; Status DC Phenylephrine HCl (Neosynephrine Inj) 40 mg STK-MED ONCE .ROUTE Last administered on 11/30/16 13:04; Start 11/30/16 at 13:04; Stop 11/30/16 at 13:05 ; Status DC Clopidogrel Bisulfate 600 mg 600 mg STK-MED ONCE .ROUTE ; Start 11/30/16 at 13: 25; Stop 11/30/16 at 13:26; Status DC Sodium Chloride (NS 1000 ml Inj) 1,000 ml @ 125 mls/hr Q8H IV Last administered on 11/30/16 21:51; Start 11/30/16 at 13:42; Stop 11/30/16 at 17:41 ; Status DC Acetaminophen (Tylenol) 325 mg Q4H PRN PO PAIN SCALE 1 TO 2 Last administered on 12/01/16 17:36; Start 11/30/16 at 13:45 Aspirin (Aspirin Chew) 81 mg DAILY PO Last administered on 12/11/16 09:02; Start 11/30/16 at 13:45 Clopidogrel Bisulfate (Plavix) 600 mg ONCE ONCE PO ; Start 11/30/16 at 13:45; Stop 11/30/16 at 13:47; Status DC Clopidogrel Bisulfate (Plavix) 75 mg DAILY PO Last administered on 12/11/16 09 :02; Start 12/01/16 at 09:00 Miscellaneous Information 1 ONCE ONCE XX ; Start 11/30/16 at 13:45; Stop at 13:49; Status DC Atropine Sulfate (Atropine Inj) 0.5 mg UNSCH PRN IV VAGAL REPONSE; Start at 13:45 Ondansetron HCl (Zofran Inj) 4 mg Q4H PRN IV NAUSEA Last administered on 22:06; Start 11/30/16 at 13:45 Metoprolol Tartrate (Lopressor) 12.5 mg BID PO Last administered on 12/01/16 09:51; Start 11/30/16 at 21:00; Status Hold Atorvastatin Calcium (Lipitor) 10 mg HS PO Last administered on 12/02/16 21:22 ; Start 11/30/16 at 21:00; Status Hold Miscellaneous Information HOLD METFORMIN FOR... Q24H .XX ; Start 11/30/16 at 15: 00; Stop 12/02/16 at 14:59; Status DC Potassium Chloride (KCl 20 Meq Premix Inj) 100 ml @ 50 mls/hr Q2H IV Last administered on 11/30/16 19:24; Start 11/30/16 at 18:00; Stop 11/30/16 at 21:59 ; Status DC Sodium Chloride (NS Flush) 5 ml Q21D IV FLUSH Last administered on 11/30/16 18 :00; Start 11/30/16 at 18:00 Heparin Sodium (Porcine) (Heparin Central Flush) 500 units Q21D IV FLUSH Last administered on 11/30/16 18:04; Start 11/30/16 at 18:00 Sodium Chloride (NS Flush) 5 ml UNSCH PRN IV FLUSH SEE LABEL COMMENTS; Start at 18:00 Heparin Sodium (Porcine) (Heparin Central Flush) 250 units UNSCH PRN IV FLUSH FLUSH AFTER USING IV ACCESS; Start 11/30/16 at 18:00 Lorazepam (Ativan Inj) 0.5 mg ONCE ONCE IV PUSH Last administered on 06:37; Start 12/01/16 at 06:30; Stop 12/01/16 at 06:31; Status DC Lorazepam 0.5 mg 0.5 mg ONCE ONCE IV Last administered on 12/01/16 07:43; Start 12/01/16 at 07:45; Stop 12/01/16 at 07:46; Status DC Potassium Chloride 30 meq/ Sodium Chloride 115 ml @ 38.333 mls/ hr Q3H IV- CENTRAL Last administered on 12/01/16 12:43; Start 12/01/16 at 08:30; Stop at 14:29; Status DC Vancomycin HCl 2100 mg/Sodium Chloride 521 ml @ 250 mls/hr ONCE ONCE IV Last administered on 12/01/16 12:43; Start 12/01/16 at 12:00; Stop 12/01/16 at 14:06 ; Status DC Pharmacy Profile Note 0 ml @ 0 mls/hr UNSCH OTHER ; Start 12/01/16 at 10:30; Status UNV Pharmacy Profile Note 0 ml @ 0 mls/hr UNSCH OTHER ; Start 12/01/16 at 11:00; Stop 12/01/16 at 13:07; Status DC Vancomycin HCl 1250 mg/Sodium Chloride 262.5 ml @ 262.5 mls/ hr Q24H IV ; Start 12/02/16 at 09:00; Stop 12/02/16 at 09:00; Status DC Ceftriaxone Sodium 2000 mg/ Sodium Chloride 100 ml @ 200 mls/hr Q24H IV ; Start 12/01/16 at 14:00; Stop 12/01/16 at 16:10; Status DC Thiamine HCl/ Sodium Chloride (Thiamine Inj/NS Inj) 101 ml @ 101 mls/hr DAILY IV Last administered on 12/01/16 14:09; Start 12/01/16 at 13:00; Stop at 08:28; Status DC Flumazenil (Romazicon Inj) 0.2 mg Q1M PRN IV PUSH SEE LABEL COMMENTS; Start at 13:00 Lorazepam (Ativan) 1 mg Q4H PRN PO CIWA 8 - 10; Start 12/01/16 at 13:00; Stop 12/04/16 at 09:29; Status DC Lorazepam (Ativan Inj) 1 mg Q4H PRN IV PUSH CIWA 8 - 10 Last administered on 21:52; Start 12/01/16 at 13:00; Stop 12/04/16 at 09:29; Status DC Lorazepam (Ativan) 2 mg Q2H PRN PO CIWA 11-14; Start 12/01/16 at 13:00; Stop at 09:29; Status DC Lorazepam (Ativan Inj) 2 mg Q2H PRN IV PUSH CIWA 11-14 Last administered on 04:37; Start 12/01/16 at 13:00; Stop 12/04/16 at 09:29; Status DC Lorazepam (Ativan Inj) 2 mg Q1H PRN IV PUSH CIWA 15-20; Start 12/01/16 at 13:00 ; Stop 12/04/16 at 09:29; Status DC Lorazepam 2 mg 2 mg Q15M PRN IV PUSH CIWA > 20; Start 12/01/16 at 13:00; Stop 12/04/16 at 09:29; Status DC Sodium Chloride 1,000 ml @ 999 mls/hr BOLUS ONCE IV Last administered on 12/01 14:09; Start 12/01/16 at 13:00; Stop 12/01/16 at 14:06; Status DC Sodium Chloride (NS 1000 ml Inj) 1,000 ml @ 999 mls/hr BOLUS ONCE IV Last administered on 12/01/16 14:09; Start 12/01/16 at 13:00; Stop 12/01/16 at 14:06 ; Status DC Morphine Sulfate 8 mg 8 mg STK-MED ONCE .ROUTE Last administered on 12/01/16 14:06; Start 12/01/16 at 14:04; Stop 12/01/16 at 14:05; Status DC Dexmedetomidine HCl/Sodium Chloride (Precedex Inj/NS Inj) 52 ml @ 0 mls/hr TITRATE IV ; Start 12/01/16 at 14:30; Stop 12/03/16 at 07:50; Status DC Albuterol/ Ipratropium (Duoneb Neb) 1 ampule Q6HR NEB NEB Last administered on 12/05/16 15:58; Start 12/01/16 at 16:00; Stop 12/05/16 at 16:00; Status DC Albuterol/ Ipratropium 1 ampule 1 ampule Q2HR NEB PRN NEB SHORTNESS OF BREATH Last administered on 12/11/16 22:59; Start 12/01/16 at 14:30 Cefazolin Sodium/ Dextrose 50 ml @ 100 mls/hr Q8H IV Last administered on 12/03 08:27; Start 12/01/16 at 18:00; Stop 12/06/16 at 09:11; Status DC Pharmacy Profile Note 0 ml @ 0 mls/hr UNSCH OTHER ; Start 12/01/16 at 16:15; Stop 12/03/16 at 10:51; Status DC Sodium Chloride (NS 1000 ml Inj) 1,000 ml @ 50 mls/hr Q20H IV Last administered on 12/04/16 05:40; Start 12/01/16 at 16:30; Stop 12/04/16 at 09:25 ; Status DC Acetaminophen 650 mg 650 mg Q6H PRN PO FEVER Last administered on 12/02/16 01 :07; Start 12/01/16 at 17:30 Vancomycin HCl/ Sodium Chloride (Vancomycin Inj/ NS 500 ml Inj) 521 ml @ 250 mls/hr Q18H IV Last administered on 12/02/16 05:36; Start 12/02/16 at 06:00; Stop 12/02/16 at 11:38; Status DC Miscellaneous Information SPECIFIC LAB TO BE DRAWN:VANCO TROUGH DATE TO... ONCE ONCE .XX ; Start 12/03/16 at 17:45; Stop 12/03/16 at 17:46; Status Cancel Sodium Chloride (NS 1000 ml Inj) 1,000 ml @ 999 mls/hr BOLUS ONCE IV Last administered on 12/02/16 06:30; Start 12/02/16 at 06:30; Stop 12/02/16 at 07:30 ; Status DC Methylprednisolone Sodium Succinate (SoluMEDROL INJ) 125 mg ONCE STAT IV PUSH Last administered on 12/02/16 07:14; Start 12/02/16 at 06:52; Stop 12/02/16 at 06:59; Status DC Methylprednisolone Sodium Succinate (SoluMEDROL INJ) 60 mg Q8HR IV PUSH Last administered on 12/05/16 05:17; Start 12/02/16 at 14:00; Stop 12/05/16 at 09:00 ; Status DC Etomidate (Amidate Inj) 20 mg STK-MED ONCE .ROUTE Last administered on 08:07; Start 12/02/16 at 07:29; Stop 12/02/16 at 07:30; Status DC Midazolam HCl (Versed Inj) 5 mg STK-MED ONCE .ROUTE Last administered on 08:07; Start 12/02/16 at 07:29; Stop 12/02/16 at 07:30; Status DC Rocuronium Fowler (Zemuron Inj) 50 mg STK-MED ONCE .ROUTE Last administered on 12/02/16 08:08; Start 12/02/16 at 07:30; Stop 12/02/16 at 07:31; Status DC Enoxaparin Sodium (Lovenox Inj) 40 mg Q24H SQ Last administered on 12/11/16 09 :01; Start 12/02/16 at 09:00 Chlorhexidine Gluconate 15 ml 15 ml BID@08,20 MT Last administered on 19:05; Start 12/02/16 at 08:00 Propofol 100 ml @ 0 mls/hr TITRATE IV Last administered on 12/02/16 19:59; Start 12/02/16 at 08:00; Stop 12/03/16 at 07:50; Status DC Fentanyl Citrate (fentaNYL DRIP) 250 ml @ 0 mls/hr TITRATE IV Last administered on 12/03/16 04:05; Start 12/02/16 at 08:00; Stop 12/04/16 at 09:25 ; Status DC Metoprolol Tartrate 2.5 mg 2.5 mg Q6H PRN IV PUSH HR >110 Last administered on 12/11/16 12:47; Start 12/02/16 at 08:15 Multivitamins/ Thiamine HCl/ Folic Acid/Sodium Chloride (Mvi-12 Inj/ Thiamine Inj/ Folvite Inj/1/2 NS 500 ml Inj) 511.2 ml @ 125 mls/hr DAILY IV Last administered on 12/04/16 09:21; Start 12/02/16 at 09:00; Stop 12/05/16 at 09:00 ; Status DC Sodium Bicarbonate (Sodium Bicarbonate 8.4% Inj) 50 meq STK-MED ONCE .ROUTE ; Start 12/02/16 at 09:06; Stop 12/02/16 at 09:07; Status DC Sodium Bicarbonate 50 meq 50 meq NOW ONCE IV PUSH Last administered on 11:16; Start 12/02/16 at 09:45; Stop 12/02/16 at 09:46; Status DC Vasopressin/ Dextrose (Pitressin Inj/ D5W 100 ml Inj) 100 ml @ 4.5 mls/hr [id number] IV Last administered on 12/03/16 04:17; Start 12/02/16 at 11:04; Stop 12/06/16 at 07:32; Status DC Sodium Bicarbonate (Sodium Bicarbonate 8.4% Inj) 50 meq ONCE ONCE IV PUSH Last administered on 12/02/16 11:38; Start 12/02/16 at 11:15; Stop 12/02/16 at 11:22; Status DC Rocuronium Fowler 50 mg 50 mg BOLUS ONCE IV Last administered on 12/02/16 11 :39; Start 12/02/16 at 11:15; Stop 12/02/16 at 11:22; Status DC Sodium Bicarbonate 50 ml @ As Directed STK-MED ONCE .ROUTE Last administered on 12/02/16 15:53; Start 12/02/16 at 11:06; Stop 12/02/16 at 11:07; Status DC Vancomycin HCl 2000 mg/Sodium Chloride 520 ml @ 250 mls/hr Q18H IV Last administered on 12/02/16 23:46; Start 12/03/16 at 00:00; Stop 12/03/16 at 10:51 ; Status DC Norepinephrine Bitartrate (Levophed-Dextrose Drip) 250 ml @ 0 mls/hr TITRATE IV Last administered on 12/03/16 04:05; Start 12/02/16 at 15:15; Stop 12/08/16 at 10:23; Status DC Terbutaline Sulfate 1 mg 1 mg UNSCH PRN SQ For Extravasation; Start 12/02/16 at 15:15 Sodium Bicarbonate/ Sterile Water (Sodium Bicarbonate 8.4% Inj/Sterile Water For Inj) 1,000 ml @ 150 mls/hr Q6H40M IV Last administered on 12/03/16 04:16 ; Start 12/02/16 at 16:00; Stop 12/03/16 at 07:49; Status DC Iohexol (OMNIPAQUE 350 INJ (Visual Basic .Net Developer)) 100 ml STK-MED ONCE OTHER ; Start at 12:30; Stop 12/02/16 at 15:48; Status DC Lidocaine HCl (Xylocaine 1% Inj (50 ml)) 50 ml STK-MED ONCE .ROUTE ; Start 12/02 at 19:06; Stop 12/02/16 at 19:07; Status DC Dextrose (D50w (Vial) Inj) 50 ml UNSCH PRN IV HYPOGLYCEMIA-SEE COMMENTS; Start 12/02/16 at 22:30 Glucagon (Glucagon Inj) 1 mg UNSCH PRN OTHER HYPOGLYCEMIA-SEE COMMENTS; Start 12/02/16 at 22:30 Insulin Aspart 1 1 Q4HR SQ Last administered on 12/12/16 03:25; Start at 00:00 Midazolam HCl (Versed 100 Mg/ ml Inj) 100 ml @ 0 mls/hr TITRATE IV ; Start 12/03 at 08:00; Stop 12/04/16 at 09:25; Status DC Polyethylene Glycol (Miralax) 17 gm DAILY PO Last administered on 12/11/16 09: 02; Start 12/04/16 at 09:00 Bumetanide (Bumex Inj) 1 mg STK-MED ONCE .ROUTE ; Start 12/03/16 at 11:46; Stop 12/03/16 at 11:47; Status DC Bumetanide 1 mg 1 mg NOW ONCE IV PUSH ; Start 12/03/16 at 15:00; Stop 12/03/16 at 15:01; Status DC Cefepime HCl/ Sodium Chloride (Maxipime Inj/NS Inj) 100 ml @ 200 mls/hr Q8H IV Last administered on 7/22/17at 08:16; Start 12/03/16 at 17:00; Stop 12/06/16 at 09:08; Status DC Bumetanide 1 mg 1 mg ONCE ONCE IV PUSH Last administered on 12/04/16 10:00; Start 12/04/16 at 09:30; Stop 12/04/16 at 09:32; Status DC Potassium Chloride (KCl 40 Meq Premix Inj) 100 ml @ 25 mls/hr Q4H IV ; Start at 10:00; Stop 12/04/16 at 17:59; Status DC Morphine Sulfate 2 mg 2 mg Q3H PRN IV PUSH pain 5-10 Last administered on 05:16; Start 12/04/16 at 09:30; Stop 12/05/16 at 09:01; Status DC Potassium Chloride 100 ml @ 50 mls/hr Q2H PRN IV For Potassium 2.8 - 3.2 mEq/ L Last administered on 12/04/16 21:17; Start 12/04/16 at 09:30 Potassium Chloride (KCl 20 Meq Premix Inj) 100 ml @ 50 mls/hr Q2H PRN IV For Potassium 2.8 - 3.2 mEq/L; Start 12/04/16 at 09:30 Potassium Bicarb/ Potassium Chloride 50 meq 50 meq UNSCH PRN PO For Potassium 3.3 - 3.5 mEq/L; Start 12/04/16 at 09:30 Potassium Chloride 100 ml @ 25 mls/hr UNSCH PRN IV For Potassium 3.3 - 3.5 mEq /L; Start 12/04/16 at 09:30 Potassium Chloride 100 ml @ 50 mls/hr Q2H PRN IV For Potassium 3.3 - 3.5 mEq/L ; Start 12/04/16 at 09:30 Magnesium Sulfate/ Sodium Chloride (Magnesium Sulfate Inj/NS Inj) 100 ml @ 50 mls/hr UNSCH PRN IV For Magnesium 0.9 - 1.1 mg/dL; Start 12/04/16 at 09:30 Magnesium Oxide 800 mg 800 mg UNSCH PRN PO For Magnesium 1.2 - 1.6 mg/dL; Start 12/04/16 at 09:30 Magnesium Sulfate/ Sodium Chloride (Magnesium Sulfate Inj/NS Inj) 100 ml @ 50 mls/hr UNSCH PRN IV For Magnesium 1.2 - 1.6 mg/dL; Start 12/04/16 at 09:30 Potassium Phosphate 2000 mg 2,000 mg Q4H PRN PO For Phosphorus < 2.5 mg/dL; Start 12/04/16 at 09:30 Sodium Phosphate/ Sodium Chloride (Sodium Phosphate Inj/NS 250 ml Inj) 250 ml @ 42 mls/hr UNSCH PRN IV For Phosphorus < 2.5 mg/dL Last administered on 06:41; Start 12/04/16 at 09:30 Potassium Phosphate 2000 mg 2,000 mg UNSCH PRN PO/TUBE SEE LABEL COMMENTS; Start 12/04/16 at 09:30 Potassium Phosphate/Sodium Chloride (Potassium Phosphate Inj/NS 250 ml Inj) 260 ml @ 42 mls/hr UNSCH PRN IV SEE LABEL COMMENTS; Start 12/04/16 at 09:30 Potassium Bicarb/ Potassium Chloride (K-Lyte Cl Eff) 25 meq ONCE ONCE PO ; Start 12/04/16 at 09:30; Stop 12/04/16 at 09:42; Status DC Bumetanide 1 mg 1 mg ONCE ONCE IV PUSH Last administered on 12/04/16 12:32; Start 12/04/16 at 12:00; Stop 12/04/16 at 12:01; Status DC Calcium Gluconate/ Sodium Chloride (Calcium Gluconate Inj/NS Inj) 110 ml @ 110 mls/hr ONCE ONCE IV Last administered on 12/05/16 10:29; Start 12/05/16 at 09 :30; Stop 12/05/16 at 10:29; Status DC Methylprednisolone Sodium Succinate (SoluMEDROL INJ) 40 mg Q12HR IV PUSH Last administered on 12/10/16 20:09; Start 12/05/16 at 09:00; Stop 12/11/16 at 09:04 ; Status DC Thiamine HCl (Vitamin B1) 100 mg DAILY PO Last administered on 12/11/16 09:01 ; Start 12/05/16 at 09:00 Multivitamins (Theragran) 1 tab DAILY PO Last administered on 12/11/16 09:02; Start 12/05/16 at 09:00 Folic Acid (Folate) 1 mg DAILY PO Last administered on 12/11/16 09:02; Start 12/05/16 at 09:00 Morphine Sulfate (Morphine Inj) 2 mg Q2H PRN IV PUSH pain 5-10 Last administered on 12/12/16 03:26; Start 12/05/16 at 10:30 Albuterol/ Ipratropium 1 ampule 1 ampule Q4HR NEB NEB Last administered on 03:40; Start 12/06/16 at 08:00; Stop 12/10/16 at 08:00; Status DC Sodium Chloride (1/2 NS 1000 ml Inj) 1,000 ml @ 125 mls/hr Q8H IV Last administered on 12/07/16 21:33; Start 12/06/16 at 07:30; Stop 12/08/16 at 10:23 ; Status DC Rifampin 300 mg 300 mg Q12HR PO Last administered on 12/11/16 21:01; Start at 09:15 Cefazolin Sodium/ Dextrose (Ancef 2 Gm Premix) 50 ml @ 100 mls/hr Q8H IV Last administered on 12/11/16 23:26; Start 12/06/16 at 10:00 Levofloxacin (Levaquin) 750 mg Q24H PO Last administered on 12/11/16 09:01; Start 12/06/16 at 10:00; Stop 12/13/16 at 09:59 Insulin Detemir (Levemir Inj) 5 units Q12HR SQ Last administered on 12/11/16 19:45; Start 12/07/16 at 09:00 Methylnaltrexone Fowler (Relistor Inj) 12 mg ONCE ONCE SQ Last administered on 12/07/16 16:58; Start 12/07/16 at 15:00; Stop 12/07/16 at 15:11; Status DC Metoprolol Tartrate (Lopressor Inj) 2.5 mg ONCE ONCE IV PUSH Last administered on 12/08/16 15:15; Start 12/08/16 at 15:00; Stop 12/08/16 at 15:01 ; Status DC Diltiazem HCl (Cardizem Inj) 10 mg ONCE ONCE IV ; Start 12/08/16 at 15:15; Stop 12/08/16 at 16:09; Status DC Metoprolol Tartrate (Lopressor) 50 mg Q12HR PO Last administered on 12/11/16 21:01; Start 12/08/16 at 21:00 Diltiazem HCl (Cardizem) 60 mg Q6H PO Last administered on 12/12/16 03:26; Start 12/09/16 at 05:00 Lorazepam (Ativan Inj) 1 mg Q4H PRN IV PUSH ANXIETY AND/OR AGITATION Last administered on 12/10/16 06:00; Start 12/09/16 at 15:15 Haloperidol Lactate (Haldol Inj) 2 mg Q8H PRN IM AGITATION AND/OR HALLUCINATION ; Start 12/10/16 at 17:00 Methylprednisolone Sodium Succinate (SoluMEDROL INJ) 20 mg Q12HR IV PUSH Last administered on 12/11/16 21:01; Start 12/11/16 at 21:00 A/P Assessment and Plan 61-year-old male with a medical history significant for left parotid gland squamous cell cancer initially admitted for intractable abdominal pain, lactic acidemia and other nonspecific complaints. The patient was found to have and NSTEMI and later found to be septic. He went into septic shock secondary to MSSA bacteremia from Nyswvy-k-Ssyl infection. Patient is status post ICU course including intubation and extubation. He is status post port removal. He is hemodynamically stable and has been transferred to the hospitalist service. Septic shock-resolved MSSA bacteremia Syvuhx-t-Tguy infection - s/p removal of [id number]-Vhqd - Catheter tip culture blood culture and wound culture also positive for MSSA - Continue abx per ID (Ancef, Rifampin, Levaquin PO) will need abx for 6 weeks from port removal. Acute metabolic encephalopathy-improving slowly. Agitation - Encephalopathy most likely secondary to severe sepsis - Continue Thiamine, MVI, folic acid - Ativan/Haldol PRN agitation Acute hypoxemic respiratory failure Acute COPD exacerbation Tobacco abuse - Emergently intubated and placed on mechanical ventilation 12/02/16, extubated successfully 12/03/16 - Continue with oxygen keep sat >92% - continue neb treatment - tapered down IV Solu-Medrol 20 mg q12 hr for COPD exacerbation - ABX per ID NSTEMI atrial fibrillation - s/p PCI to LCx by Dr. Krause on 11/30/16 - Continue ASA/Plavix/metoprolol,cardizem and statin -IV lopressor prn- -continue to monitor and adjust the regimen as needed. - 2-D echo no veg, EF 50-55% Invasive adenocarcinoma of the esophagus Liver cirrhosis - On Honey thickened diet - GI following- has biopsy proven invasive adenocarcinoma of esophagus - continue Protonix - Oncology following. -for radiation simulation when more stable. 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 -plan for chemo and radiation per oncology Diabetes Hypothyroidism - Electrolyte replacement per protocol - SSI ( medium scale) Levemir 5units BID for glycemic control - Continue thyroid supplementation PROPH: - Bilateral lower extremity SCDs. - Lovenox/Protonix transfer to telemetry within the next 24-48 hrs if stable. Zamzam Kim MD Dec 12, 2016 08:58
--- NOTE | 2016-12-12 10:28 | HHI.IDPN ---
Subjective Subjective Remarks Patient is a 61-year-old male, currently lethargic, and unable to give any history. History has been obtained from the chart. 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 It was reportedly malignant as well. He presented to the hospital complaining of generalized weakness, abdominal pain and progressive swallowing difficulty over the last 3 weeks. Evaluation in the emergency room revealed abnormal EKG, and he underwent cardiac catheterization. He had non-ST [place], and had revascularization with stent placement of his left circumflex artery. Patient is spiked to 103, and there were 2 blood cultures done yesterday that are now reported as growing staph aureus. Patient currently has a Saxena catheter. There is a lot of sediment in his urine, and his urine culture is also showing staph aureus. CT of the abdomen and pelvis did not show any abnormality except the soft tissue mass in the esophagus. He had atherosclerosis of his vasculature. There was also evidence of possible liver cirrhosis. Patient is being evaluated for chemotherapy and radiation, but he has not been started. He had an Rbzgis-o-[id number] placement on November 12 on his right upper chest. Notes reviewed D/W RN Temps ok On nasal O2 Mental status much improved today C/O pain in his coccyx - has decubitus stage 1 and 2 Last (+) BC 12/05 Port removed 12/02 Antibiotics Ancef/rifampin Levaquin - to finish 12/13 Lines Port - removed 12/02 Past Medical History Hypertension Hyperlipidemia CAD Diabetes 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 and he had good margins Recurrent squamous cell carcinoma on the left face, with involvement of the parotid gland, status post surgery at [facility] Recently found to have esophageal mass Past Surgical History Appendectomy Liver Biopsy Resection of a squamous cell carcinoma on the left cheek in 2011 Extensive surgery on the left face and neck for recurrent squamous cell carcinoma Port Placement November 12, 2016 Allergies: Coded Allergies: Penicillin (Verified Allergy, Mild, Hives, 11/12/16) Objective . Vital Signs Date Time Temp Pulse Resp B/P Pulse Ox O2 Delivery O2 Flow Rate FiO2 12/12/16 07:35 100 Nasal Cannula 3.00 12/12/16 06:00 69 12/12/16 04:00 98.7 73 24 175/75 94 12/12/16 04:00 69 12/12/16 02:00 69 12/12/16 00:00 67 12/12/16 00:00 98.6 71 24 148/83 94 12/11/16 22:00 90 12/11/16 20:00 99.1 96 23 172/89 99 12/11/16 20:00 90 12/11/16 20:00 90 Nasal Cannula 3.00 12/11/16 18:00 90 12/11/16 16:00 148 12/11/16 16:00 98.6 148 24 155/74 94 12/11/16 14:00 72 12/11/16 12:00 74 12/11/16 12:00 99.1 74 23 181/79 99 12/11/16 12/11/16 12/12/16 15:00 23:00 07:00 Intake Total 673 ml 675 ml 675 ml Output Total 575 ml 750 ml 650 ml Balance 98 ml -75 ml 25 ml Intake Oral 430 ml 450 ml 450 ml IV Total 243 ml 225 ml 225 ml Output Urine Total 575 ml 750 ml 650 ml # Bowel Movements 0 0 0 . Laboratory Tests Test 12/10/16 12/11/16 12/12/16 12:37 03:29 04:04 White Blood Count 14.7 TH/MM3 9.9 TH/MM3 8.3 TH/MM3 Red Blood Count 3.21 MIL/MM3 3.03 MIL/MM3 3.05 MIL/MM3 Hemoglobin 8.9 GM/DL 8.4 GM/DL 8.4 GM/DL Hematocrit 27.7 % 26.0 % 26.7 % Mean Corpuscular Volume 86.3 FL 85.9 FL 87.6 FL Mean Corpuscular Hemoglobin 27.5 PG 27.6 PG 27.5 PG Mean Corpuscular Hemoglobin 31.9 % 32.1 % 31.3 % Concent Red Cell Distribution Width 17.6 % 17.4 % 17.9 % Platelet Count 138 TH/MM3 117 TH/MM3 135 TH/MM3 Mean Platelet Volume 9.7 FL 9.8 FL 10.5 FL Neutrophils (%) (Auto) 87.3 % Lymphocytes (%) (Auto) 8.9 % Monocytes (%) (Auto) 3.6 % Eosinophils (%) (Auto) 0.1 % Basophils (%) (Auto) 0.1 % Neutrophils # (Auto) 8.7 TH/MM3 Lymphocytes # (Auto) 0.9 TH/MM3 Monocytes # (Auto) 0.4 TH/MM3 Eosinophils # (Auto) 0.0 TH/MM3 Basophils # (Auto) 0.0 TH/MM3 CBC Comment DIFF FINAL Differential Comment Laboratory Tests Test 12/10/16 12/11/16 12:37 03:29 Sodium Level 143 MEQ/L 141 MEQ/L Potassium Level 4.7 MEQ/L 4.4 MEQ/L Chloride Level 110 MEQ/L 107 MEQ/L Carbon Dioxide Level 23.8 MEQ/L 24.9 MEQ/L Anion Gap 9 MEQ/L 9 MEQ/L Blood Urea Nitrogen 38 MG/DL 38 MG/DL Creatinine 1.11 MG/DL 1.01 MG/DL Estimat Glomerular Filtration 68 ML/MIN 76 ML/MIN Rate Random Glucose 246 MG/DL 207 MG/DL Calcium Level 8.2 MG/DL 8.1 MG/DL Triglycerides Level 123 MG/DL Cholesterol Level 100 MG/DL LDL Cholesterol 51 MG/DL HDL Cholesterol 24.3 MG/DL Cholesterol/HDL Ratio 4.11 RATIO Imaging Chest X-Ray 12/05/16 0600 Signed Impressions: Service Date/Time: Monday, December 05, 2016 03:30 - CONCLUSION: 1. Cardiomegaly and findings of vascular congestion without overt failure. There has been no significant change when compared to the prior exam. Bobby Matias MD Head CT 12/01/16 0000 Signed Impressions: Service Date/Time: Thursday, December 01, 2016 07:59 - CONCLUSION: 1. Questionable area of low attenuation left temporal lobe could be artifact versus less likely infarct. MRI may be warranted based on clinical history. 2. No midline shift or mass effect. 3. No intraparenchymal hemorrhage. Jagjit Tapia MD Brain MRI 12/01/16 0000 Signed Impressions: Service Date/Time: Thursday, December 01, 2016 12:07 - CONCLUSION: Normal examination. Barrett Rodriguez MD Abdomen X-Ray 12/01/16 0000 Signed Impressions: Service Date/Time: Thursday, December 01, 2016 16:48 - CONCLUSION: No evidence of obstruction. Feeding tube tip in the distal stomach. Barrett Rodriguez MD Abdomen/Pelvis CT 11/29/16 2216 Signed Impressions: Service Date/Time: Wednesday, November 30, 2016 01:35 - CONCLUSION: 1. Markedly abnormal appearance of the distal esophagus consistent with the history of esophageal carcinoma. 2. Atherosclerotic calcifications of the aorta and iliac vessels. 3. Cirrhotic appearance to the liver with a mildly nodular contour present. Erik Simon MD CT Angiography 11/29/16 2348 Signed Impressions: Service Date/Time: Wednesday, November 30, 2016 01:35 - CONCLUSION: 1. No evidence for pulmonary embolism or pneumonia. 2. Abnormal appearance of the esophagus with and soft tissue consistent with the history of carcinoma. Erik Simon MD Chest X-Ray 12/03/16 0600 Signed Impressions: Service Date/Time: Saturday, December 03, 2016 04:43 - CONCLUSION: Increasing consolidation in the left lower lung. Bilateral interstitial changes. Niko Wilcox MD Chest X-Ray 12/03/16 0000 Signed Impressions: Service Date/Time: Saturday, December 03, 2016 07:48 - CONCLUSION: 1. Persistent left retrocardiac density and slight interstitial prominence. Jagjit Tapia MD Chest X-Ray 12/02/16 0000 Signed Impressions: Service Date/Time: Friday, December 02, 2016 15:55 - CONCLUSION: Normal examination with endotracheal tube and central lines in good position. Barrett Rodriguez MD Chest X-Ray 12/02/16 0000 Signed Impressions: Service Date/Time: Friday, December 02, 2016 08:24 - CONCLUSION: Mild perihilar vascular congestion. Endotracheal tube is in good position Barrett Rodriguez MD Chest X-Ray 12/02/16 0000 Signed Impressions: Service Date/Time: Friday, December 02, 2016 06:53 - CONCLUSION: Underinflated examination with atelectasis at the lung bases. Given the technique, no acute abnormality or significant interval change is appreciated. Washington Marroquin MD Physical Exam GENERAL: Awake, alert, not in distress SKIN: Warm and dry. No generalized rash EYES: Extraocular movements full and intact. [place]. No scleral icterus. No injection or drainage. EARS, NOSE AND THROAT: Nose without bleeding or purulent nasal discharge. No sinus tenderness. Orally intubated NECK: Trachea midline. Supple and not tender, no meningeal signs CARDIOVASCULAR: Regular rate and rhythm. No murmurs, rubs or gallops heard. RESPIRATORY: Coarse BS bilaterally. Previous port with intact dressing, open incision, dry ABDOMEN: Soft, not distended, not tender. Bowel sounds present and normoactive. No organomegaly. EXTREMITIES: No clubbing, cyanosis. Has mild pedal edema. No calf tenderness. Well perfused and warm. NEUROLOGICAL: Awake, non-focal PSYCHIATRIC: calm and cooperative LINE: Dry dressing on previous port site BACK: Has stage 1 decubitus and stage 2, clean in sacral region : Saxena in place Assessment & Plan Remarks IMPRESSION Sepsis, with shock has MSSA due to port infection - S/P removal port 12/02 - last (+) BC 12/05 Respiratory failure, better - has L base infiltrate, and GNR in sputum - to complete Rx 12/13 (+) UC with Staph aureus, due to current bacteremia Recurrent squamous cell CA Esophageal CA Lethargy and SOB due to sepsis, better - has acidosis, resolved Renal insufficiency, due to sepsis and shock, better Confusion - ?meds - better Atrial fib, rate still goes up and down RECOMMENDATION Continue Rifampin, for synergy vs MSSA - follow LFT - check on 12/15 Continue Levaquin and give 7 days for GNR in sputum - to finish today Continue IV Ancef He will need 6 weeks IV Abx - anticipated end date Jan 15 (6 weeks from last +BC) Follow temps Monitor progress PICC Wound care to decubitus D/W RN Dr chacon available this weekend if with any ID issue or question Carola Nassar MD Dec 12, 2016 10:28
--- NOTE | 2016-12-12 14:19 | PD.ONC.PN ---
Subjective Subjective Remarks Afebrile overnight. More alert, coherent today. s/o at bedside. states he is hoping to go home soon. Objective Data Date Time Temp Pulse Resp B/P Pulse Ox O2 Delivery O2 Flow Rate FiO2 12/12/16 14:00 128 12/12/16 12:00 98.5 133 14 170/120 100 12/12/16 12:00 133 12/12/16 10:00 133 12/12/16 08:00 75 12/12/16 08:00 98.4 75 14 158/72 100 12/12/16 07:35 100 Nasal Cannula 3.00 12/12/16 07:00 99 Nasal Cannula 3.00 12/12/16 06:00 69 12/12/16 04:00 98.7 73 24 175/75 94 12/12/16 04:00 69 12/12/16 02:00 69 12/12/16 00:00 67 12/12/16 00:00 98.6 71 24 148/83 94 12/11/16 22:00 90 12/11/16 20:00 99.1 96 23 172/89 99 12/11/16 20:00 90 12/11/16 20:00 90 Nasal Cannula 3.00 12/11/16 18:00 90 12/11/16 16:00 148 12/11/16 16:00 98.6 148 24 155/74 94 12/12/16 12/12/16 12/12/16 06:59 14:59 22:59 Intake Total 675 ml Output Total 650 ml Balance 25 ml Result Diagram: 12/12/16 0404 12/11/16 0329 Laboratory Results Laboratory Tests Test 12/12/16 04:04 White Blood Count 8.3 TH/MM3 Red Blood Count 3.05 MIL/MM3 Hemoglobin 8.4 GM/DL Hematocrit 26.7 % Mean Corpuscular Volume 87.6 FL Mean Corpuscular Hemoglobin 27.5 PG Mean Corpuscular Hemoglobin 31.3 % Concent Red Cell Distribution Width 17.9 % Platelet Count 135 TH/MM3 Mean Platelet Volume 10.5 FL Administered Medications Medications (Trade) Dose Ordered Sig/Geovanny Route PRN Reason Start Time Stop Time Status Last Admin Dose Admin Sodium Chloride (NS Flush) 2 ml UNSCH PRN IV FLUSH FLUSH AFTER USING IV ACCESS 11/30/16 02:45 12/01/16 21:53 Sodium Chloride (NS Flush) 2 ml BID IV FLUSH 11/30/16 09:00 12/12/16 08:59 Oxycodone HCl (Roxicodone) 5 mg Q4H PRN PO PAIN SCALE 3 TO 5 11/30/16 02:45 12/09/16 12:45 Senna/Docusate Sodium (Rere-Colace) 1 tab BID PO 11/30/16 09:00 12/12/16 08:58 Pantoprazole Sodium (Protonix Inj) 40 mg Q12H IV PUSH 11/30/16 09:00 12/12/16 08:57 Acetaminophen (Tylenol) 325 mg Q4H PRN PO PAIN SCALE 1 TO 2 11/30/16 13:45 12/01/16 17:36 Aspirin (Aspirin Chew) 81 mg DAILY PO 11/30/16 13:45 12/12/16 08:58 Clopidogrel Bisulfate (Plavix) 75 mg DAILY PO 12/01/16 09:00 12/12/16 08:58 Ondansetron HCl (Zofran Inj) 4 mg Q4H PRN IV NAUSEA 11/30/16 13:45 12/05/16 22:06 Metoprolol Tartrate (Lopressor) 12.5 mg BID PO 11/30/16 21:00 Hold 12/01/16 09:51 Sodium Chloride (NS Flush) 5 ml Q21D IV FLUSH 11/30/16 18:00 11/30/16 18:00 Heparin Sodium (Porcine) (Heparin Central Flush) 500 units Q21D IV FLUSH 11/30/16 18:00 11/30/16 18:04 Acetaminophen (Tylenol 650 Mg/ 20 ml Liq) 650 mg Q6H PRN PO FEVER 12/01/16 17:30 12/02/16 01:07 Enoxaparin Sodium (Lovenox Inj) 40 mg Q24H SQ 12/02/16 09:00 12/12/16 08:56 Chlorhexidine Gluconate (Peridex 0.12% Liq) 15 ml BID@08,20 MT 12/02/16 08:00 12/11/16 19:05 Metoprolol Tartrate (Lopressor Inj) 2.5 mg Q6H PRN IV PUSH HR >110 12/02/16 08:15 12/11/16 12:47 Insulin Aspart (NovoLOG SUPPLEMENTAL SCALE) 1 Q4HR SQ 12/03/16 00:00 12/12/16 12:08 Polyethylene Glycol 17 gm 17 gm DAILY PO 12/04/16 09:00 12/12/16 08:56 Potassium Chloride 100 ml @ 50 mls/hr Q2H PRN IV For Potassium 2.8 - 3.2 mEq/L 12/04/16 09:30 12/04/16 21:17 Sodium Phosphate/ Sodium Chloride (Sodium Phosphate Inj/NS 250 ml Inj) 250 ml @ 42 mls/hr UNSCH PRN IV For Phosphorus < 2.5 mg/dL 12/04/16 09:30 12/06/16 06:41 Thiamine HCl (Vitamin B1) 100 mg DAILY PO 12/05/16 09:00 12/12/16 08:58 Multivitamins (Theragran) 1 tab DAILY PO 12/05/16 09:00 12/12/16 08:58 Folic Acid (Folate) 1 mg DAILY PO 12/05/16 09:00 12/12/16 08:58 Morphine Sulfate (Morphine Inj) 2 mg Q2H PRN IV PUSH pain 5-10 12/05/16 10:30 12/12/16 11:41 Rifampin 300 mg 300 mg Q12HR PO 12/06/16 09:15 12/12/16 08:58 Cefazolin Sodium/ Dextrose (Ancef 2 Gm Premix) 50 ml @ 100 mls/hr Q8H IV 12/06/16 10:00 12/12/16 08:59 Levofloxacin (Levaquin) 750 mg Q24H PO 12/06/16 10:00 12/13/16 09:59 12/12/16 08:58 Insulin Detemir (Levemir Inj) 5 units Q12HR SQ 12/07/16 09:00 12/12/16 08:59 Metoprolol Tartrate (Lopressor) 50 mg Q12HR PO 12/08/16 21:00 12/12/16 08:58 Diltiazem HCl (Cardizem) 60 mg Q6H PO 12/09/16 05:00 12/12/16 11:40 Lorazepam (Ativan Inj) 1 mg Q4H PRN IV PUSH ANXIETY AND/OR AGITATION 12/09/16 15:15 12/10/16 06:00 Methylprednisolone Sodium Succinate (SoluMEDROL INJ) 20 mg Q12HR IV PUSH 12/11/16 21:00 12/12/16 08:57 Objective Remarks GENERAL: chronically ill male upright in bed, watching TV. On 3L O2 via NC. SKIN: Warm and dry. HEAD: Normocephalic. EYES: No injection or drainage. NECK: Supple, trachea midline. CARDIOVASCULAR: +S1/S2, tachy RESPIRATORY: anterior ray with scattered rhonchi. GASTROINTESTINAL: Abdomen soft, non-tender, nondistended. EXTREMITIES: No cyanosis. NEUROLOGICAL: awake and alert. normal speech. Assessment/Plan Problem List: (1) NSTEMI (non-ST elevated myocardial infarction) Status: Acute Plan: --had elevated troponin and ST-segment changes consistent with acute MN. --s/p cardiac cath, stent placement to proximal left circumflex --cardiology following --on plavix and ASA (2) SCC (squamous cell carcinoma) Status: Acute Plan: --has a head and neck, lung malignancy which was locally advanced. --received definitive treatment with surgery. Post surgery he had positive margins and some poor risk features and he was about to get concurrent chemotherapy and radiation and adjuvantly to achieve local control of the disease--waiting to receive concurrent chemo/XRT until we have biopsied the esophageal mass --PET scan to stage his disease prior to treatment showed an esophageal mass (3) Esophageal mass Status: Acute Plan: --concerning for primary esophageal cancer. --patient had OP EGD with biopsy, pathology showed adenocarcinoma. will need EUS for staging when available. --EGD/Colonoscopy, 11/20/16--showed long stricture in the mid esophagus and distal esophagus, multiple biopsies were performed Pathology revealed invasive adenocarcinoma- distal esophagus --plan for XRT simulation once more stable. also plan for EUS (4) Normocytic anemia Status: Acute Plan: --transfuse packed red blood cells if his hemoglobin drops below 8. --iron deficient --will need IV iron. (5) Sepsis Status: Acute Plan: BC, 12.08 no growth BC, 12/07 no growth --BC, 12/05 +, S. Aureus --had removal of port, + S. aureus --on Ancef + Levaquin (6) Debilitated patient Status: Acute Plan: --weakened d/t prolonged hospitalization, will likely need rehab. (7) Altered mental status Status: Acute Plan: --possibly d/t metabolic encephalopathy, sepsis Assessment 61y/o male with a history of head and neck cancer and also with an esophageal mass who presented with abdominal pain, found to have NSTEMI h/o Squamous cell carcinoma of the parotid gland and Esophageal mass. Plan 1. monitor CBC 2. supportive care 3. simulation, XRT next week. Attending Statement The exam, history, and the medical decision-making described in the above note were completed with the assistance of the mid-level provider. I reviewed and agree with the findings presented. I attest that I had a [id number] encounter with the patient on the same day, and personally performed and documented my assessment and findings in the medical record. clinically better today ongoing supportive care case discussed with Dr. Roberson again today. Plan for XRT simulation next week Problem Qualifiers (1) Sepsis: Qualified Code: A41.9 - Sepsis, due to unspecified organism (2) Altered mental status: Qualified Code: R41.0 - Disorientation Perla Duran Dec 12, 2016 14:19 Brant Bell MD Dec 12, 2016 22:51
--- NOTE | 2016-12-12 15:12 | HHI.GIFU ---
Subjective Remarks Patient is sleeping, awakes to me calling his name, he is on o2 via NC, denies nausea, vomiting or abd pain. (Karen Mae) Objective Vitals I&O Vital Signs Date Time Temp Pulse Resp B/P Pulse Ox O2 Delivery O2 Flow Rate FiO2 12/12/16 14:00 128 12/12/16 12:00 98.5 133 14 170/120 100 12/12/16 12:00 133 12/12/16 10:00 133 12/12/16 08:00 75 12/12/16 08:00 98.4 75 14 158/72 100 12/12/16 07:35 100 Nasal Cannula 3.00 12/12/16 07:00 99 Nasal Cannula 3.00 12/12/16 06:00 69 12/12/16 04:00 98.7 73 24 175/75 94 12/12/16 04:00 69 12/12/16 02:00 69 12/12/16 00:00 67 12/12/16 00:00 98.6 71 24 148/83 94 12/11/16 22:00 90 12/11/16 20:00 99.1 96 23 172/89 99 12/11/16 20:00 90 12/11/16 20:00 90 Nasal Cannula 3.00 12/11/16 18:00 90 12/11/16 16:00 148 12/11/16 16:00 98.6 148 24 155/74 94 I/O 12/11/16 12/11/16 12/11/16 12/12/16 12/12/16 12/12/16 07:00 15:00 23:00 07:00 15:00 23:00 Intake Total 375 ml 673 ml 675 ml 675 ml Output Total 475 ml 575 ml 750 ml 650 ml Balance -100 ml 98 ml -75 ml 25 ml Intake Oral 250 ml 430 ml 450 ml 450 ml IV Total 125 ml 243 ml 225 ml 225 ml Output Urine Total 475 ml 575 ml 750 ml 650 ml # Bowel Movements 1 0 0 0 Laboratory Laboratory Tests Test 12/12/16 04:04 White Blood Count 8.3 Red Blood Count 3.05 Hemoglobin 8.4 Hematocrit 26.7 Mean Corpuscular Volume 87.6 Mean Corpuscular Hemoglobin 27.5 Mean Corpuscular Hemoglobin 31.3 Concent Red Cell Distribution Width 17.9 Platelet Count 135 Mean Platelet Volume 10.5 Date/Time Procedure Status Source Growth 12/08/16 03:32 Aerobic Blood Culture - Preliminary Resulted Blood Peripheral NO GROWTH IN 4 DAYS 12/08/16 03:32 Anaerobic Blood Culture - Preliminary Resulted Blood Peripheral NO GROWTH IN 4 DAYS 12/07/16 16:42 Aerobic Blood Culture - Final Complete Blood Peripheral NO GROWTH IN 5 DAYS 12/07/16 16:42 Anaerobic Blood Culture - Final Complete Blood Peripheral NO GROWTH IN 5 DAYS Imaging Last Impressions Chest X-Ray 12/05/16 0600 Signed Impressions: Service Date/Time: Monday, December 05, 2016 03:30 - CONCLUSION: 1. Cardiomegaly and findings of vascular congestion without overt failure. There has been no significant change when compared to the prior exam. Bobby Matias MD Head CT 12/01/16 0000 Signed Impressions: Service Date/Time: Thursday, December 01, 2016 07:59 - CONCLUSION: 1. Questionable area of low attenuation left temporal lobe could be artifact versus less likely infarct. MRI may be warranted based on clinical history. 2. No midline shift or mass effect. 3. No intraparenchymal hemorrhage. Jagjit Tapia MD Brain MRI 12/01/16 0000 Signed Impressions: Service Date/Time: Thursday, December 01, 2016 12:07 - CONCLUSION: Normal examination. Barrett Rodriguez MD Abdomen X-Ray 12/01/16 0000 Signed Impressions: Service Date/Time: Thursday, December 01, 2016 16:48 - CONCLUSION: No evidence of obstruction. Feeding tube tip in the distal stomach. Barrett Rodriguez MD Abdomen/Pelvis CT 11/29/16 9516 Signed Impressions: Service Date/Time: Wednesday, November 30, 2016 01:35 - CONCLUSION: 1. Markedly abnormal appearance of the distal esophagus consistent with the history of esophageal carcinoma. 2. Atherosclerotic calcifications of the aorta and iliac vessels. 3. Cirrhotic appearance to the liver with a mildly nodular contour present. Erik Simon MD CT Angiography 11/29/16 9408 Signed Impressions: Service Date/Time: Wednesday, November 30, 2016 01:35 - CONCLUSION: 1. No evidence for pulmonary embolism or pneumonia. 2. Abnormal appearance of the esophagus with and soft tissue consistent with the history of carcinoma. Erik Simon MD Physical Exam HEENT: Normocephalic; atraumatic; no jaundice. CHEST: Resp. even/unlabored. CARDIAC: RRR. ABDOMEN: Soft, mildly distended, nontender; no hepatosplenomegaly; bowel sounds are present in all four quadrants. EXTREMITIES: No clubbing, cyanosis, or edema. SKIN: Normal; no rash; no jaundice. 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 PET Scan (10/28/16)----> negative examination of the head and neck, findings characteristic of esophageal neoplasm. S/P EGD/Colonoscopy (11/20/16)----> There was a long stricture i the mid esophagus and distal esophagus, multiple biopsies were performed, the mucosa of the stomach appeared normal, duodenal mucosa showed no abnormalities in the entire duodenum, retroflexed views revealed a small hiatal hernia; nine sessile polyps ranging from 4-12 mm in size were found at the cecum, in the ascending colon, descending colon, sigmoid colon, and rectum; polypectomy was performed using snare cautery, moderate diverticulosis was noted in the left colon, retroflexed views revealed internal grade I hemorrhoids, a digital rectal exam was performed and revealed no abnormalities of the anus. Pathology revealed invasive adenocarcinoma- distal esophagus, descending colon polyp and rectosigmoid polyp both benign hyperplastic colonic polyp, no adenomatous change or malignancy is seen. D/W Oncology, plan is for EUS when more stable- timing to be determined. Possibly next week. - Dysphagia. ST following, full liquids with honey consistency liquids - Constipation. (+) BM. Miralax - Abnormal imaging of the liver on CT scan, consistent with cirrhosis. Abdomen/ Pelvis CT (11/29/16)----> 1. Markedly abnormal appearance of the distal esophagus consistent with the history of esophageal carcinoma. 2. Atherosclerotic calcifications of the aorta and iliac vessels. 3. Cirrhotic appearance to the liver with a mildly nodular contour present. Unclear if he has hx of cirrhosis. There is mention of hx of HCV in EMR, but patient has had undetectable viral load as far back as 2001. Pt is now awake and able to tell me that he has a history of HCV and was successfully treated with Interferon/ribavirin in the past. Iron saturation 4.1%, Ferritin 124, Hepatitis C antibodies (+), viral load undetectable, TERRIE negative , ASMA < 20.0, AMA neg, Ceruloplasmin 40 and alpha 1 antitrypsin 298. Labs and imaging consistent with cirrhosis. Pt does not currently drink, but states that he was a heavy drinker in the past. T. Bili 1.4, AST 24, ALT 33, Alk Phosph 81. - Sepsis/Bacteremia/UTI. Urine and Bcx with Staphylococcus aureus. S/P removal of infusaport by (12/02). Cefepime - AMS, Acute metabolic encephalopathy. Head CT (12/01/16)-----> 1. Questionable area of low attenuation left temporal lobe could be artifact versus less likely infarct. MRI may be warranted based on clinical history. 2. No midline shift or mass effect. 3. No intraparenchymal hemorrhage. Brain MRI (12/01/16 )----> Normal examination. Lethargic, but awakens and follows commands. Confused. - Resp. Failure. Chest X-Ray (12/05/16)----> 1. Cardiomegaly and findings of vascular congestion without overt failure. There has been no significant change when compared to the prior exam. S/P Extubation on 12/03. O2 5L via n/c. Radhaolcedric, - NSTEMI, CAD. S/P left heart catheterization (11/30/16) with Dr. Murillo and this revealed RCA 10% lesion mid segment, mild calcifications left main, LAD with calcification from it's proximal segment to its midsegment however, with no significant obstructive lesions, The LAD is giving off to a diagonal which has a 70% lesion in its ostial segment, left circumflex artery with a proximal clot thrombus, S/P percutaneous coronary intervention/bare metal stent to proximal left circumflex. ASA and Plavix, as well as aggressive optimization of coronary artery disease. 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 S/P mohs surgery by a sign poster in September of 2015 and shortly after this, developed a mass near the surgical area. S/P at [facility] with Dr. Valdovinos in June of 2016----> underwent extensive head and neck surgery involving a parotidectomy and radical neck dissection in September of 2016. Because of high risk features of local recurrence with perineural invasion and positive margins, it was recommended that he have concurrent chemoradiation therapy. He was evaluated by Dr. Cross for radiation and seen by Dr. Bell for oncology. PET Scan ()----> negative examination of the head and neck, findings characteristic of esophageal neoplasm. Direct visualization is recommended. - Hx HTN (now hypotensive), Hyperlipidemia, DM. per attending. 12-08-16- Patient on 3 L of O2, tolerating fulls okay, no n/v or abd pain. 12-09-16- doing good today, up with PT, tolerating diet okay 12-10-16- patient not stable for EUS, on O2 NC, seems confused today 12-11-16 Doing better today, No N/V or abd pain. Not on O2 , he feels as though can use some 12-12-16 slowly improving, on O2 via N[place]. No nausea, vomiting or abd pain PLAN: - mech. chopped diet - as recommended by ST. - EUS when more stable - Cont. PPI - Cont. Miralax - Monitor labs - Supportive care - Further recommendations to follow based on results of above Patient seen and examined by Dr. Tejeda and myself and this note is written on his behalf (Karen Mae) Physician Comments Patient seen and examined Agree with above Continue with current supportive care Monitor labs Patient will need endoscopic ultrasound for esophageal cancer staging We are waiting a more stable situation for the endoscopic ultrasound which can also be done on an outpatient basis At this point not much to add from a GI perspective we will sign off and please reconsult as needed or when patient is more stable for EUS (Ortiz Tejeda MD) Karen Mae Dec 12, 2016 15:12 Ortiz Tejeda MD Dec 12, 2016 19:47
--- NOTE | 2016-12-12 15:52 | HHI.PR ---
Subjective Subjective Notes Resting in bed RN Ismael at bedside Objective Vitals/I&O Vital Signs Date Time Temp Pulse Resp B/P Pulse Ox O2 Delivery O2 Flow Rate FiO2 12/12/16 14:00 128 12/12/16 12:00 98.5 14 170/120 100 12/12/16 07:35 Nasal Cannula 3.00 Labs Laboratory Tests Test 12/12/16 04:04 White Blood Count 8.3 Red Blood Count 3.05 Hemoglobin 8.4 Hematocrit 26.7 Mean Corpuscular Volume 87.6 Mean Corpuscular Hemoglobin 27.5 Mean Corpuscular Hemoglobin 31.3 Concent Red Cell Distribution Width 17.9 Platelet Count 135 Mean Platelet Volume 10.5 Date/Time Procedure Status Source Growth 12/08/16 03:32 Aerobic Blood Culture - Preliminary Resulted Blood Peripheral NO GROWTH IN 4 DAYS 12/08/16 03:32 Anaerobic Blood Culture - Preliminary Resulted Blood Peripheral NO GROWTH IN 4 DAYS 12/07/16 16:42 Aerobic Blood Culture - Final Complete Blood Peripheral NO GROWTH IN 5 DAYS 12/07/16 16:42 Anaerobic Blood Culture - Final Complete Blood Peripheral NO GROWTH IN 5 DAYS Cardiovascular: Regular Lungs: Clear Abdomen: Non-distended, Non-tender Extremities: No edema Narrative Exam RIGHT subclavian: s/p port removal; packing removed; wound bed is c/d/i; repacked and dry dressing applied A/P Assessment and Plan 61 year old male s/p Infusaport removal -Dressing change daily: saline soaked 2x2 loosely packed into wound; cover with dry 4x4 and secure with paper tape -Discussed with RN Ismael -Will see peripherally; please call with questions Attending Note - Dr. Rich Wound clean and healing Will recheck once more next week and then sign off Plan per med team The exam, history, and the medical decision-making described in the above note were completed with the assistance of the mid-level provider. I reviewed and agree with the findings presented. I attest that I had a [id number] encounter with the patient on the same day, and personally performed and documented my assessment and findings in the medical record. Cindy Parekh Dec 12, 2016 15:52 Bebeto Rich MD Dec 12, 2016 18:44
[2016-12-12] MEDS ORDERED: SODIUM CHLORIDE 0.9% FLUSH 10 ML FLUSH IV FLUSH PRN (17:00)
--- NOTE | 2016-12-12 17:44 | RADRPT ---
EXAM DATE/TIME: 12/12/2016 17:04 [facility] COMPARISON: CHEST SINGLE AP, December 05, 2016, 3:30. INDICATIONS : Evaluate for left sided picc line placement. MEDICAL HISTORY : Hypertension. Myocardial infarction. Hepatitis C. COPD, GERD, Coronary artery disease, Cirrhosis. SURGICAL HISTORY : Appendectomy. ENCOUNTER: Subsequent ACUITY: 1 day PAIN SCORE: Non-responsive. LOCATION: chest FINDINGS: There is slight cardiomegaly and perivascular pulmonary edema. Focal consolidation is not seen. Left subclavian PICC line is present with tip overlapping the expected region of the SVC. Left basilar opa city is present may be due to a combination of consolidation and or pleural effusion. CONCLUSION: Slight CHF and left basilar opacity may be pleural effusion or consolidation. Mali Law MD on December 12, 2016 at 17:41 Board Certified Radiologist. This report was verified electronically.
[2016-12-12] MEDS: ATORVASTATIN 40 MG TAB PO SCH (21:12)
[2016-12-13] VITALS (23 sets, daily range): BP systolic 96–179; BP diastolic 56–84; PULSE 67–141; RESP 11–22; TEMP 97.9–98.6; O2SAT 89–100
[2016-12-13] MEDS: MORPHINE SULFATE 4 MG/ML INJ IV PUSH PRN ×5 (00:21→21:58)
[2016-12-13] MEDS: RESP: ALBUTEROL 2.5 MG/IPRATROPIUM 0.5 MG NEB (PRN) NEB (00:24)
[2016-12-13] MEDS: INSULIN ASPART SUPPLEMENTAL SCALE SQ SCH ×6 (00:51→20:00)
[2016-12-13] MEDS: ceFAZolin 2 GM PREMIX 50 ML IV SCH ×3 (00:55→17:13)
[2016-12-13] MEDS: DILTIAZEM HCL 60 MG TAB PO SCH ×4 (06:32→23:15)
[2016-12-13 07:20] LABS: BICARBONATE 24.6 MEQ/L (21.0-32.0); POTASSIUM 4.2 MEQ/L (3.5-5.1)
[2016-12-13 07:23] LABS: AUTOMATED NEUTROPHIL # 7.2 TH/MM3 (1.8-7.7); BASOPHIL % 0.1 % (0.0-2.0); EOSINOPHIL % 0.3 % (0.0-4.0); HEMATOCRIT 23.3 % (39.0-51.0); HEMO FLAGS DIFF FINAL; LYMPH % 10.2 % (9.0-44.0); LYMPHOCYTE # 0.9 TH/MM3 (1.0-4.8); MEAN CELL VOLUME 85.5 FL (80.0-100.0); MEAN CORPUSCULAR HEMOGLOBIN 28.5 PG (27.0-34.0); MEAN CORPUSCULAR HGB CONC 33.3 % (32.0-36.0); MONO % 5.3 % (0.0-8.0); NEUT % 84.1 % (16.0-70.0); PLATELET COUNT 142 TH/MM3 (150-450); RED BLOOD COUNT 2.73 MIL/MM3 (4.50-5.90); RED CELL DISTRIBUTION WIDTH 17.3 % (11.6-17.2); WHITE BLOOD COUNT 8.6 TH/MM3 (4.0-11.0)
[2016-12-13] MEDS: CHLORHEXIDINE 0.12% (ORAL KIT) 15 ML CUP MT SCH ×2 (08:00→20:49)
[2016-12-13] MEDS ORDERED: SODIUM CHLOR 0.9% 250 ML INJ 250 ML IV ONE (08:15)
[2016-12-13] MEDS ORDERED: diphenhydrAMINE HCL 25 MG CAP PO PRN ×2 (08:15→17:15)
[2016-12-13] MEDS ORDERED: ACETAMINOPHEN 325 MG TAB PO PRN (08:15)
--- NOTE | 2016-12-13 08:27 | HHI.PR ---
Subjective Remarks Pt states he feels ok but tired. had some mild chest discomfort last night but no pain. currently denies any chest discomfort, SOB, nausea or vomiting. No lightheadedness or dizziness today Discussed w RN, no reported overnight events Objective Vitals Vital Signs Date Time Temp Pulse Resp B/P Pulse Ox O2 Delivery O2 Flow Rate FiO2 12/13/16 06:00 82 12/13/16 04:00 98.6 79 22 124/59 99 12/13/16 04:00 79 12/13/16 02:00 85 12/13/16 00:25 98 Nasal Cannula 3.00 12/13/16 00:00 79 12/13/16 00:00 98.3 79 20 132/60 96 12/12/16 22:00 80 12/12/16 20:00 86 12/12/16 20:00 98.5 86 20 130/55 100 12/12/16 19:00 86 Nasal Cannula 3.00 12/12/16 18:00 83 12/12/16 16:00 82 12/12/16 16:00 98.1 82 16 139/65 100 12/12/16 14:00 128 12/12/16 12:00 98.5 133 14 170/120 100 12/12/16 12:00 133 12/12/16 10:00 133 I/O 12/12/16 12/12/16 12/12/16 12/13/16 12/13/16 12/13/16 07:00 15:00 23:00 07:00 15:00 23:00 Intake Total 675 ml 740 ml 486 ml 319 ml Output Total 650 ml 700 ml 450 ml 350 ml Balance 25 ml 40 ml 36 ml -31 ml Intake Oral 450 ml 400 ml 100 ml 100 ml IV Total 225 ml 340 ml 386 ml 219 ml Output Urine Total 650 ml 700 ml 450 ml 350 ml # Bowel Movements 0 0 0 0 Result Diagram: 12/13/16 0552 12/13/16 0552 Imaging Last Impressions Chest X-Ray 12/12/16 0000 Signed Impressions: Service Date/Time: Monday, December 12, 2016 17:04 - CONCLUSION: Slight CHF and left basilar opacity may be pleural effusion or consolidation. Mali Law MD Head CT 12/01/16 0000 Signed Impressions: Service Date/Time: Thursday, December 01, 2016 07:59 - CONCLUSION: 1. Questionable area of low attenuation left temporal lobe could be artifact versus less likely infarct. MRI may be warranted based on clinical history. 2. No midline shift or mass effect. 3. No intraparenchymal hemorrhage. Jagjit Tapia MD Brain MRI 12/01/16 0000 Signed Impressions: Service Date/Time: Thursday, December 01, 2016 12:07 - CONCLUSION: Normal examination. Barrett Rodriguez MD Abdomen X-Ray 12/01/16 0000 Signed Impressions: Service Date/Time: Thursday, December 01, 2016 16:48 - CONCLUSION: No evidence of obstruction. Feeding tube tip in the distal stomach. Barrett Rodriguez MD Abdomen/Pelvis CT 11/29/16 2356 Signed Impressions: Service Date/Time: Wednesday, November 30, 2016 01:35 - CONCLUSION: 1. Markedly abnormal appearance of the distal esophagus consistent with the history of esophageal carcinoma. 2. Atherosclerotic calcifications of the aorta and iliac vessels. 3. Cirrhotic appearance to the liver with a mildly nodular contour present. Erik Simon MD CT Angiography 11/29/16 2348 Signed Impressions: Service Date/Time: Wednesday, November 30, 2016 01:35 - CONCLUSION: 1. No evidence for pulmonary embolism or pneumonia. 2. Abnormal appearance of the esophagus with and soft tissue consistent with the history of carcinoma. Erik Simon MD Objective Remarks GENERAL: appears comfortable CARDIOVASCULAR: appears regular w no obvious murmurs RESPIRATORY: Clear to auscultation. Breath sounds equal bilaterally. No wheezes GASTROINTESTINAL: Abdomen soft, non-tender, nondistended. Normal, active bowel sounds MUSCULOSKELETAL: Extremities without edema. Moves his extremities. NEURO: awake, alert , answers questions PSYCH: calm, pleasant. not agitated A/P Problem List: (1) Intractable abdominal pain ICD Code: R10.9 Status: Acute (2) Esophageal carcinoma ICD Code: C15.9 Status: Acute (3) SCC (squamous cell carcinoma) ICD Code: C44.92 Status: Acute (4) Hypokalemia ICD Code: E87.6 Status: Acute (5) Lactic acidosis ICD Code: E87.2 Status: Acute (6) Renal insufficiency ICD Code: N28.9 Status: Acute (7) Elevated troponin ICD Code: R74.8 Status: Acute (8) DM (diabetes mellitus) ICD Code: E11.9 Status: Acute (9) Tobacco abuse ICD Code: Z72.0 Status: Acute (10) NSTEMI (non-ST elevated myocardial infarction) ICD Code: I21.4 Status: Acute (11) Bacteremia due to Gram-positive bacteria ICD Code: R78.81 Status: Acute (12) Encephalopathy, metabolic ICD Code: G93.41 Status: Acute Assessment and Plan 61-year-old male with a medical history significant for left parotid gland squamous cell cancer initially admitted for intractable abdominal pain, lactic acidemia and other nonspecific complaints. The patient was found to have and NSTEMI and later found to be septic. He went into septic shock secondary to MSSA bacteremia from Zdheud-z-Owty infection. Patient is status post ICU course including intubation and extubation. He is status post port removal. He is hemodynamically stable Septic shock-resolved MSSA bacteremia Zceolz-[id number] infection - s/p removal of [id number] by GS. Dressing changes per GS. Appreciate assistance. - Catheter tip culture blood culture and wound culture also positive for MSSA - Continue abx per ID, on IV Ancef, po Rifampin x 6 weeks from port removal and Levaquin PO- to be completed 12/13. Check LFTs 12/15/16 per ID Acute metabolic encephalopathy-improving slowly. Agitation - Encephalopathy most likely secondary to severe sepsis - Continue Thiamine, MVI, folic acid - Ativan/Haldol PRN agitation Acute hypoxemic respiratory failure Acute COPD exacerbation Tobacco abuse - Emergently intubated and placed on mechanical ventilation 12/02/16, extubated successfully 12/03/16 - Continue with oxygen keep sat >92% - continue neb treatment - tapered down IV Solu-Medrol 20 mg q12 hr for COPD exacerbation, will change to po prednisone 40mg daily tomorrow. - ABX per ID. See above NSTEMI atrial fibrillation - s/p PCI to LCx by Dr. Krause on 11/30/16 - Continue ASA/Plavix/metoprolol,cardizem and statin -IV lopressor prn- -continue to monitor and adjust the regimen as needed. 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 Will need EUS however per GI can be done as an outpatient. They have signed off. Appreciate assistance. - switch IV Protonix to po today. - Oncology following. - for radiation simulation when more stable. Anticipate XRT simulation next week. - Status post surgical resection for L parotid SCC. plan for chemo and radiation per oncology Anemia Hb down to 7.8. Per heme/onc recs, transfuse if Hb<8. Will transfuse 1unit PRBC today. Repeat H&H post tranfusion. Diabetes Hypothyroidism - Electrolyte replacement per protocol - SSI ( medium scale) Levemir 5units BID for glycemic control. Monitor BS closely. Will not adjust levemir dose for now as I'm tapering off the steroids. adjust as needed. - Continue thyroid supplementation PROPH: - Bilateral lower extremity SCDs. - Lovenox/Protonix Discharge Planning transfer to regular floor. Transfuse 1 unit PRBC today awaiting clearance from oncology and GI has signed off. Guadalupe Carter MD Dec 13, 2016 08:27
[2016-12-13] MEDS: SODIUM CHLORIDE 0.9% FLUSH 10 ML FLUSH IV FLUSH SCH ×3 (08:50→20:50)
[2016-12-13] MEDS: LORazepam 2 MG/ML VIAL IV PUSH PRN (08:50)
[2016-12-13] MEDS: DOCUSATE SODIUM 50 MG/SENNA 8.6 MG TAB PO SCH ×2 (09:00→20:51)
[2016-12-13] MEDS: POLYETHYLENE GLYCOL 17 GM PKG PO SCH (09:27)
[2016-12-13] MEDS: FOLIC ACID 1 MG TAB PO SCH (09:27)
[2016-12-13] MEDS: methylPREDNISolone SOD SUCC 40 MG/1 ML VIAL IV PUSH SCH ×2 (09:27→20:50)
[2016-12-13] MEDS: ASPIRIN 81 MG CHEW TAB PO SCH (09:27)
[2016-12-13] MEDS: ENOXAPARIN SODIUM 40 MG/0.4 ML SYRINGE SQ SCH (09:27)
[2016-12-13] MEDS: PANTOPRAZOLE SOD 40 MG DELAYED RELEASE TAB PO SCH ×2 (09:27→20:51)
[2016-12-13] MEDS: CLOPIDOGREL 75 MG TAB PO SCH (09:28)
[2016-12-13] MEDS: MULTIVITAMIN TAB PO SCH (09:33)
[2016-12-13] MEDS: THIAMINE HCL 100 MG TAB PO SCH (09:33)
[2016-12-13] MEDS: RIFAMPIN 150 MG CAP PO SCH ×2 (09:33→20:51)
[2016-12-13] MEDS: METOPROLOL TARTRATE 50 MG TAB PO SCH ×2 (09:34→20:52)
[2016-12-13] MEDS: INSULIN DETEMIR 100 UNITS/ML VIAL SQ SCH ×2 (09:39→21:29)
[2016-12-13] MEDS: METOPROLOL TARTRATE 5 MG/5 ML VIAL IV PUSH PRN (09:40)
[2016-12-13] MEDS: ACETAMINOPHEN 325 MG TAB PO PRN (17:13)
[2016-12-13] MEDS: ATORVASTATIN 40 MG TAB PO SCH (20:51)
[2016-12-13 22:21] LABS: HEMATOCRIT 26.8 % (39.0-51.0); REVIEW FLAG FINAL
[2016-12-14] VITALS (21 sets, daily range): BP systolic 108–165; BP diastolic 59–83; PULSE 73–138; RESP 12–24; TEMP 98.2–98.7; O2SAT 89–100
[2016-12-14] MEDS: ceFAZolin 2 GM PREMIX 50 ML IV SCH ×3 (01:36→16:55)
[2016-12-14] MEDS: MORPHINE SULFATE 4 MG/ML INJ IV PUSH PRN ×2 (01:37→09:07)
[2016-12-14 03:44] LABS: HEMATOCRIT 25.2 % (39.0-51.0); REVIEW FLAG FINAL
[2016-12-14] MEDS: INSULIN ASPART SUPPLEMENTAL SCALE SQ SCH ×4 (04:00→21:00)
[2016-12-14 04:06] LABS: BICARBONATE 25.4 MEQ/L (21.0-32.0); POTASSIUM 4.6 MEQ/L (3.5-5.1)
[2016-12-14] MEDS: DILTIAZEM HCL 60 MG TAB PO SCH ×4 (05:18→21:26)
--- NOTE | 2016-12-14 08:17 | HHI.PR ---
Subjective Remarks Pt tells me that he has back pain for laying in bed. States the bed is not comfortable at all. Denies any chest discomfort, worsening SOB, nausea or vomiting. Would like to get out of bed and sit on a recliner. Discussed w RN, pt had one episode of tachycardia overnight requiring one dose of labetalol Objective Vitals Vital Signs Date Time Temp Pulse Resp B/P Pulse Ox O2 Delivery O2 Flow Rate FiO2 12/14/16 06:00 73 12/14/16 04:00 98.4 76 17 165/74 94 12/14/16 04:00 76 12/14/16 02:00 75 12/14/16 01:46 17 12/14/16 00:00 77 12/14/16 00:00 98.2 77 18 144/65 99 12/13/16 23:18 96 12/13/16 22:00 125 12/13/16 20:00 97.9 89 16 179/74 96 12/13/16 20:00 78 12/13/16 19:00 96 Nasal Cannula 3.00 12/13/16 17:05 98.5 78 14 133/62 98 12/13/16 17:00 78 15 138/63 98 12/13/16 16:50 98.1 78 13 140/66 99 12/13/16 16:00 78 14 143/65 97 12/13/16 15:00 78 14 140/64 97 12/13/16 14:00 75 15 133/62 100 12/13/16 13:00 70 18 96/61 98 12/13/16 12:00 98.4 67 18 112/58 98 12/13/16 11:00 71 21 111/58 98 12/13/16 10:46 69 20 119/56 98 12/13/16 10:00 127 17 151/84 98 12/13/16 09:00 141 15 113/56 89 I/O 12/13/16 12/13/16 12/13/16 12/14/16 12/14/16 12/14/16 07:00 15:00 23:00 07:00 15:00 23:00 Intake Total 319 ml 524 ml 154 ml Output Total 350 ml 1150 ml 400 ml Balance -31 ml -626 ml -246 ml Intake Oral 100 ml 360 ml 60 ml IV Total 219 ml 164 ml 94 ml Output Urine Total 350 ml 1150 ml 400 ml # Bowel Movements 0 0 0 Result Diagram: 12/14/165 12/14/16 0315 Imaging Last Impressions Chest X-Ray 12/12/16 0000 Signed Impressions: Service Date/Time: Monday, December 12, 2016 17:04 - CONCLUSION: Slight CHF and left basilar opacity may be pleural effusion or consolidation. Mali Law MD Head CT 12/01/16 0000 Signed Impressions: Service Date/Time: Thursday, December 01, 2016 07:59 - CONCLUSION: 1. Questionable area of low attenuation left temporal lobe could be artifact versus less likely infarct. MRI may be warranted based on clinical history. 2. No midline shift or mass effect. 3. No intraparenchymal hemorrhage. Jagjit Tapia MD Brain MRI 12/01/16 0000 Signed Impressions: Service Date/Time: Thursday, December 01, 2016 12:07 - CONCLUSION: Normal examination. Barrett Rodriguez MD Abdomen X-Ray 12/01/16 0000 Signed Impressions: Service Date/Time: Thursday, December 01, 2016 16:48 - CONCLUSION: No evidence of obstruction. Feeding tube tip in the distal stomach. Barrett Rodriguez MD Abdomen/Pelvis CT 11/29/16 2346 Signed Impressions: Service Date/Time: Wednesday, November 30, 2016 01:35 - CONCLUSION: 1. Markedly abnormal appearance of the distal esophagus consistent with the history of esophageal carcinoma. 2. Atherosclerotic calcifications of the aorta and iliac vessels. 3. Cirrhotic appearance to the liver with a mildly nodular contour present. Erik Simon MD CT Angiography 11/29/16 [id number] Signed Impressions: Service Date/Time: Wednesday, November 30, 2016 01:35 - CONCLUSION: 1. No evidence for pulmonary embolism or pneumonia. 2. Abnormal appearance of the esophagus with and soft tissue consistent with the history of carcinoma. Erik Simon MD Objective Remarks GENERAL: appears comfortable but does grimace when he moves CARDIOVASCULAR: appears regular w no obvious murmurs RESPIRATORY: Clear to auscultation. Breath sounds equal bilaterally. No wheezes GASTROINTESTINAL: Abdomen soft, non-tender, nondistended. Normal, active bowel sounds MUSCULOSKELETAL: Extremities without edema. Moves his extremities. NEURO: awake, alert , answers questions PSYCH: calm, pleasant. not agitated A/P Problem List: (1) Intractable abdominal pain ICD Code: R10.9 Status: Acute (2) Esophageal carcinoma ICD Code: C15.9 Status: Acute (3) SCC (squamous cell carcinoma) ICD Code: C44.92 Status: Acute (4) Hypokalemia ICD Code: E87.6 Status: Acute (5) Lactic acidosis ICD Code: E87.2 Status: Acute (6) Renal insufficiency ICD Code: N28.9 Status: Acute (7) Elevated troponin ICD Code: R74.8 Status: Acute (8) DM (diabetes mellitus) ICD Code: E11.9 Status: Acute (9) Tobacco abuse ICD Code: Z72.0 Status: Acute (10) NSTEMI (non-ST elevated myocardial infarction) ICD Code: I21.4 Status: Acute (11) Bacteremia due to Gram-positive bacteria ICD Code: R78.81 Status: Acute (12) Encephalopathy, metabolic ICD Code: G93.41 Status: Acute Assessment and Plan 61-year-old male with a medical history significant for left parotid gland squamous cell cancer initially admitted for intractable abdominal pain, lactic acidemia and other nonspecific complaints. The patient was found to have and NSTEMI and later found to be septic. He went into septic shock secondary to MSSA bacteremia from Mmwqdn-e-Tpyn infection. Patient is status post ICU course including intubation and extubation. He is status post port removal. He is hemodynamically stable Septic shock-resolved MSSA bacteremia Skamyl-v-Sjfn infection - s/p removal of Npvjwb-m-Aljy by GS. Dressing changes per GS. Appreciate assistance. - Catheter tip culture blood culture and wound culture also positive for MSSA - Continue abx per ID, on IV Ancef, po Rifampin x 6 weeks from port removal and (completed course of Levaquin PO on 12/13). Check LFTs 12/15/16 per ID Acute metabolic encephalopathy-improving slowly. Agitation - Encephalopathy most likely secondary to severe sepsis - Continue Thiamine, MVI, folic acid - Ativan/Haldol PRN agitation Acute hypoxemic respiratory failure Acute COPD exacerbation Tobacco abuse - Emergently intubated and placed on mechanical ventilation 12/02/16, extubated successfully 12/03/16 - Continue with oxygen keep sat >92% - continue neb treatment - s/p IV Solu-Medrol and now started on po prednisone 40mg daily today. - ABX per ID. See above NSTEMI atrial fibrillation - s/p PCI to LCx by Dr. Krause on 11/30/16 - Continue ASA/Plavix/metoprolol,cardizem and statin -IV lopressor prn- -continue to monitor and adjust the regimen as needed. 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 Will need EUS however per GI can be done as an outpatient. They have signed off. Appreciate assistance. - on po Protonix - Oncology following. - for radiation simulation when more stable. Anticipate XRT simulation next week. - Status post surgical resection for L parotid SCC. plan for chemo and radiation per oncology Anemia Hb now stable at 8.5, s/p 1unit PRBC yesterday. Per heme/onc recs, transfuse if Hb<8. Monitor H&H. Diabetes Hypothyroidism - Electrolyte replacement per protocol - SSI ( medium scale) increased Levemir 6 units BID for glycemic control. Monitor BS closely. Will not adjust levemir dose too much for now as I'm tapering off the steroids. adjust as needed. - Continue thyroid supplementation PROPH: - Bilateral lower extremity SCDs. - Lovenox/Protonix Discharge Planning transfer to regular floor. awaiting clearance from oncology and GI has signed off. Guadalupe Carter MD Dec 14, 2016 08:17
[2016-12-14] MEDS: DOCUSATE SODIUM 50 MG/SENNA 8.6 MG TAB PO SCH ×2 (09:00→21:26)
[2016-12-14] MEDS: FOLIC ACID 1 MG TAB PO SCH (09:00)
[2016-12-14] MEDS: RIFAMPIN 150 MG CAP PO SCH ×2 (09:00→21:26)
[2016-12-14] MEDS: INSULIN DETEMIR 100 UNITS/ML VIAL SQ SCH ×2 (09:00→21:00)
[2016-12-14] MEDS: SODIUM CHLORIDE 0.9% FLUSH 10 ML FLUSH IV FLUSH SCH ×3 (09:00→21:25)
[2016-12-14] MEDS: MULTIVITAMIN TAB PO SCH (09:00)
[2016-12-14] MEDS: POLYETHYLENE GLYCOL 17 GM PKG PO SCH (09:00)
[2016-12-14] MEDS: predniSONE 20 MG TAB PO SCH ×2 (09:03→11:06)
[2016-12-14] MEDS: CHLORHEXIDINE 0.12% (ORAL KIT) 15 ML CUP MT SCH ×2 (09:03→21:25)
[2016-12-14] MEDS: ENOXAPARIN SODIUM 40 MG/0.4 ML SYRINGE SQ SCH (09:03)
[2016-12-14] MEDS: ASPIRIN 81 MG CHEW TAB PO SCH (09:03)
[2016-12-14] MEDS: PANTOPRAZOLE SOD 40 MG DELAYED RELEASE TAB PO SCH ×2 (09:03→21:26)
[2016-12-14] MEDS: THIAMINE HCL 100 MG TAB PO SCH ×2 (09:04→11:05)
[2016-12-14] MEDS: CLOPIDOGREL 75 MG TAB PO SCH (09:04)
[2016-12-14] MEDS: METOPROLOL TARTRATE 50 MG TAB PO SCH ×2 (09:04→21:25)
[2016-12-14] MEDS: METOPROLOL TARTRATE 5 MG/5 ML VIAL IV PUSH PRN ×3 (09:07→14:50)
[2016-12-14] MEDS ORDERED: METOPROLOL TARTRATE 50 MG TAB PO SCH (12:00)
[2016-12-14] MEDS ORDERED: ETOMIDATE 20 MG/10 ML VIAL IVP ONE (12:15)
[2016-12-14] MEDS ORDERED: SUCCINYLCHOLINE CHLORIDE 200 MG/10 ML VIAL IV ONE (12:15)
[2016-12-14] MEDS ORDERED: fentaNYL CITRATE 250 MCG/5 ML AMP IV ONE (12:15)
[2016-12-14] MEDS: LORazepam 2 MG/ML VIAL IV PUSH PRN (13:36)
[2016-12-14] MEDS ORDERED: METOPROLOL TARTRATE 25 MG TAB PO ONE (16:15)
[2016-12-14] MEDS: ATORVASTATIN 40 MG TAB PO SCH (21:26)
[2016-12-15] VITALS (9 sets, daily range): BP systolic 121–151; BP diastolic 63–84; PULSE 75–136; RESP 16–24; TEMP 96.4–98.8; O2SAT 90–100
[2016-12-15 02:40] LABS: HEMATOCRIT 26.7 % (39.0-51.0); MEAN CORPUSCULAR HEMOGLOBIN 27.8 PG (27.0-34.0); MEAN CORPUSCULAR HGB CONC 32.3 % (32.0-36.0); PLATELET COUNT 160 TH/MM3 (150-450); RED CELL DISTRIBUTION WIDTH 18.5 % (11.6-17.2); REVIEW FLAG FINAL; WHITE BLOOD COUNT 8.4 TH/MM3 (4.0-11.0)
[2016-12-15 03:06] LABS: INDIRECT BILIRUBIN 0.4 MG/DL (0.0-0.8); TOTAL BILIRUBIN ADULT 0.8 MG/DL (0.2-1.0)
[2016-12-15] MEDS: DILTIAZEM HCL 60 MG TAB PO SCH ×4 (04:54→23:39)
[2016-12-15] MEDS: ceFAZolin 2 GM PREMIX 50 ML IV SCH ×3 (04:54→16:37)
[2016-12-15] MEDS: INSULIN ASPART SUPPLEMENTAL SCALE SQ SCH ×4 (06:17→21:24)
[2016-12-15] MEDS: CHLORHEXIDINE 0.12% (ORAL KIT) 15 ML CUP MT SCH ×2 (08:00→20:00)
[2016-12-15] MEDS: INSULIN DETEMIR 100 UNITS/ML VIAL SQ SCH ×2 (08:08→21:24)
[2016-12-15] MEDS: PANTOPRAZOLE SOD 40 MG DELAYED RELEASE TAB PO SCH ×2 (08:09→21:13)
[2016-12-15] MEDS: CLOPIDOGREL 75 MG TAB PO SCH (08:09)
[2016-12-15] MEDS: RIFAMPIN 150 MG CAP PO SCH ×2 (08:09→21:13)
[2016-12-15] MEDS: ENOXAPARIN SODIUM 40 MG/0.4 ML SYRINGE SQ SCH (08:09)
[2016-12-15] MEDS: FOLIC ACID 1 MG TAB PO SCH (08:09)
[2016-12-15] MEDS: ASPIRIN 81 MG CHEW TAB PO SCH (08:09)
[2016-12-15] MEDS: THIAMINE HCL 100 MG TAB PO SCH (08:09)
[2016-12-15] MEDS: POLYETHYLENE GLYCOL 17 GM PKG PO SCH (08:09)
[2016-12-15] MEDS: DOCUSATE SODIUM 50 MG/SENNA 8.6 MG TAB PO SCH ×2 (08:09→21:13)
[2016-12-15] MEDS: predniSONE 20 MG TAB PO SCH (08:10)
[2016-12-15] MEDS: METOPROLOL TARTRATE 50 MG TAB PO SCH ×2 (08:10→21:21)
--- NOTE | 2016-12-15 08:43 | HHI.PR ---
Subjective Remarks Pt states he feels ok, really wants to get out of bed, get on a wheelchair and move around. denies any pain, SOB, nausea or vomiting Objective Vitals Vital Signs Date Time Temp Pulse Resp B/P Pulse Ox O2 Delivery O2 Flow Rate FiO2 12/15/16 08:00 98.8 76 18 137/84 95 12/15/16 08:00 136 12/15/16 07:00 92 Nasal Cannula 3.00 12/15/16 06:00 84 12/15/16 04:00 85 12/15/16 04:00 98.7 85 17 137/84 90 12/15/16 02:00 82 12/15/16 00:00 98.3 75 16 121/67 100 12/15/16 00:00 75 12/14/16 22:00 129 12/14/16 20:25 96 Nasal Cannula 2.00 12/14/16 20:00 136 12/14/16 20:00 98.5 136 18 140/73 92 12/14/16 19:00 92 Nasal Cannula 3.00 12/14/16 18:00 126 22 133/71 97 12/14/16 17:00 133 20 125/82 92 12/14/16 16:00 98.6 129 22 120/73 89 12/14/16 15:00 120 23 125/83 99 12/14/16 14:39 121 21 123/70 99 12/14/16 13:05 127 21 113/61 100 12/14/16 12:00 98.7 136 20 111/59 96 12/14/16 11:00 137 18 108/65 99 12/14/16 10:00 138 13 134/72 96 12/14/16 09:00 135 24 136/63 97 12/14/16 08:53 136 21 124/78 96 I/O 12/14/16 12/14/16 12/14/16 12/15/16 12/15/16 12/15/16 06:59 14:59 22:59 06:59 14:59 22:59 Intake Total 154 ml 895 ml 140 ml Output Total 400 ml 2250 ml 600 ml Balance -246 ml -1355 ml -460 ml Intake Oral 60 ml 840 ml 80 ml IV Total 94 ml 55 ml 60 ml Output Urine Total 400 ml 2250 ml 600 ml # Bowel Movements 0 0 0 Result Diagram: 7/31/17 0210 12/14/16 0315 Imaging Last Impressions Chest X-Ray 12/12/16 0000 Signed Impressions: Service Date/Time: Monday, December 12, 2016 17:04 - CONCLUSION: Slight CHF and left basilar opacity may be pleural effusion or consolidation. Mali Law MD Head CT 12/01/16 0000 Signed Impressions: Service Date/Time: Thursday, December 01, 2016 07:59 - CONCLUSION: 1. Questionable area of low attenuation left temporal lobe could be artifact versus less likely infarct. MRI may be warranted based on clinical history. 2. No midline shift or mass effect. 3. No intraparenchymal hemorrhage. Jagjit Tapia MD Brain MRI 12/01/16 0000 Signed Impressions: Service Date/Time: Thursday, December 01, 2016 12:07 - CONCLUSION: Normal examination. Barrett Rodriguez MD Abdomen X-Ray 12/01/16 0000 Signed Impressions: Service Date/Time: Thursday, December 01, 2016 16:48 - CONCLUSION: No evidence of obstruction. Feeding tube tip in the distal stomach. Barrett Rodriguez MD Abdomen/Pelvis CT 11/29/16 2356 Signed Impressions: Service Date/Time: Wednesday, November 30, 2016 01:35 - CONCLUSION: 1. Markedly abnormal appearance of the distal esophagus consistent with the history of esophageal carcinoma. 2. Atherosclerotic calcifications of the aorta and iliac vessels. 3. Cirrhotic appearance to the liver with a mildly nodular contour present. Erik Simon MD CT Angiography 11/29/16 1058 Signed Impressions: Service Date/Time: Wednesday, November 30, 2016 01:35 - CONCLUSION: 1. No evidence for pulmonary embolism or pneumonia. 2. Abnormal appearance of the esophagus with and soft tissue consistent with the history of carcinoma. Erki Simon MD Objective Remarks GENERAL: appears comfortable CARDIOVASCULAR: appears regular w no obvious murmurs RESPIRATORY: Clear to auscultation. Breath sounds equal bilaterally. No wheezes GASTROINTESTINAL: Abdomen soft, non-tender, nondistended. Normal, active bowel sounds MUSCULOSKELETAL: Extremities without edema. Moves his extremities. NEURO: awake, alert , answers questions PSYCH: calm, pleasant. not agitated A/P Problem List: (1) Intractable abdominal pain ICD Code: R10.9 Status: Acute (2) Esophageal carcinoma ICD Code: C15.9 Status: Acute (3) SCC (squamous cell carcinoma) ICD Code: C44.92 Status: Acute (4) Hypokalemia ICD Code: E87.6 Status: Acute (5) Lactic acidosis ICD Code: E87.2 Status: Acute (6) Renal insufficiency ICD Code: N28.9 Status: Acute (7) Elevated troponin ICD Code: R74.8 Status: Acute (8) DM (diabetes mellitus) ICD Code: E11.9 Status: Acute (9) Tobacco abuse ICD Code: Z72.0 Status: Acute (10) NSTEMI (non-ST elevated myocardial infarction) ICD Code: I21.4 Status: Acute (11) Bacteremia due to Gram-positive bacteria ICD Code: R78.81 Status: Acute (12) Encephalopathy, metabolic ICD Code: G93.41 Status: Acute Assessment and Plan 61-year-old male with a medical history significant for left parotid gland squamous cell cancer initially admitted for intractable abdominal pain, lactic acidemia and other nonspecific complaints. The patient was found to have and NSTEMI and later found to be septic. He went into septic shock secondary to MSSA bacteremia from Cgizsj-l-Zejc infection. Patient is status post ICU course including intubation and extubation. He is status post port removal. He is hemodynamically stable Septic shock-resolved MSSA bacteremia Pbasfr-v-Qlzd infection - s/p removal of Lvxnpk-y-Rgef by GS. Dressing changes per GS. Appreciate assistance. - Catheter tip culture blood culture and wound culture also positive for MSSA - Continue abx per ID, on IV Ancef, po Rifampin x 6 weeks from port removal and (completed course of Levaquin PO on 12/13). LFTs 12/15/16 wnl Acute metabolic encephalopathy-improving slowly. Agitation - Encephalopathy most likely secondary to severe sepsis - Continue Thiamine, MVI, folic acid - Ativan/Haldol PRN agitation Acute hypoxemic respiratory failure Acute COPD exacerbation Tobacco abuse - Emergently intubated and placed on mechanical ventilation 12/02/16, extubated successfully 12/03/16 - Continue with oxygen keep sat >92% - continue neb treatment - s/p IV Solu-Medrol and now started on po prednisone 40mg daily today, continue to taper, switch to 20mg po daily 12/16/16. - ABX per ID. See above NSTEMI atrial fibrillation - s/p PCI to LCx by Dr. Krause on 11/30/16 - Continue ASA/Plavix/metoprolol,cardizem and statin -IV lopressor prn- -continue to monitor and adjust the regimen as needed. 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 Will need EUS however per GI can be done as an outpatient. They have signed off. Appreciate assistance. - on po Protonix - Oncology following. Discussed w oncology team today, Pt will need XRT simulation which is scheduled for thursday - Status post surgical resection for L parotid SCC. plan for chemo and radiation per oncology. Awaiting final recs from oncology, Discussed w CM, there is a SNF that might accept pt pending what type of chemo he will require. Anemia Hb now stable at 8.5, s/p 1unit PRBC. Per heme/onc recs, transfuse if Hb<8. Monitor H&H. Diabetes Hypothyroidism - Electrolyte replacement per protocol - SSI ( medium scale) and Levemir 6 units BID for glycemic control. Monitor BS closely. Will not adjust levemir dose too much for now as I'm tapering off the steroids. adjust as needed. - Continue thyroid supplementation PROPH: - Bilateral lower extremity SCDs. - Lovenox/Protonix Discharge Planning awaiting clearance from oncology and GI has signed off. Schedule for XRT simulation this coming thursday. Pt didn't require IV BB for HR control, will transfer to regular floor Guadalupe Carter MD Dec 15, 2016 08:43
[2016-12-15] MEDS: MULTIVITAMIN TAB PO SCH (09:00)
[2016-12-15] MEDS: SODIUM CHLORIDE 0.9% FLUSH 10 ML FLUSH IV FLUSH SCH ×3 (09:00→21:10)
--- NOTE | 2016-12-15 09:54 | HHI.IDPN ---
Subjective Subjective Remarks Patient is a 61-year-old male, currently lethargic, and unable to give any history. History has been obtained from the chart. 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 It was reportedly malignant as well. He presented to the hospital complaining of generalized weakness, abdominal pain and progressive swallowing difficulty over the last 3 weeks. Evaluation in the emergency room revealed abnormal EKG, and he underwent cardiac catheterization. He had non-ST [place], and had revascularization with stent placement of his left circumflex artery. Patient is spiked to 103, and there were 2 blood cultures done yesterday that are now reported as growing staph aureus. Patient currently has a Saxena catheter. There is a lot of sediment in his urine, and his urine culture is also showing staph aureus. CT of the abdomen and pelvis did not show any abnormality except the soft tissue mass in the esophagus. He had atherosclerosis of his vasculature. There was also evidence of possible liver cirrhosis. Patient is being evaluated for chemotherapy and radiation, but he has not been started. He had an Axhfxh-a-Twqz placement on November 12 on his right upper chest. Notes reviewed D/W RN Mental status much improved Working with PT - did some walking using a walker Has PICC in place Temps ok On nasal O2 Last (+) BC 12/05 Port removed 12/02 LFT ok this morning Antibiotics Ancef/rifampin Levaquin - to finish 12/13 Lines Port - removed 12/02 Past Medical History Hypertension Hyperlipidemia CAD Diabetes 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 and he had good margins Recurrent squamous cell carcinoma on the left face, with involvement of the parotid gland, status post surgery at [facility] Recently found to have esophageal mass Past Surgical History Appendectomy Liver Biopsy Resection of a squamous cell carcinoma on the left cheek in 2011 Extensive surgery on the left face and neck for recurrent squamous cell carcinoma Port Placement November 12, 2016 Allergies: Coded Allergies: Penicillin (Verified Allergy, Mild, Hives, 11/12/16) Objective . Vital Signs Date Time Temp Pulse Resp B/P Pulse Ox O2 Delivery O2 Flow Rate FiO2 12/15/16 08:00 98.8 76 18 137/84 95 12/15/16 08:00 136 12/15/16 07:12 91 21 12/15/16 07:00 92 Nasal Cannula 3.00 12/15/16 06:00 84 12/15/16 04:00 85 12/15/16 04:00 98.7 85 17 137/84 90 12/15/16 02:00 82 12/15/16 00:00 98.3 75 16 121/67 100 12/15/16 00:00 75 12/14/16 22:00 129 12/14/16 20:25 96 Nasal Cannula 2.00 12/14/16 20:00 136 12/14/16 20:00 98.5 136 18 140/73 92 12/14/16 19:00 92 Nasal Cannula 3.00 12/14/16 18:00 126 22 133/71 97 12/14/16 17:00 133 20 125/82 92 12/14/16 16:00 98.6 129 22 120/73 89 12/14/16 15:00 120 23 125/83 99 12/14/16 14:39 121 21 123/70 99 12/14/16 13:05 127 21 113/61 100 12/14/16 12:00 98.7 136 20 111/59 96 12/14/16 11:00 137 18 108/65 99 12/14/16 10:00 138 13 134/72 96 12/14/16 12/14/16 12/15/16 15:00 23:00 07:00 Intake Total 895 ml 140 ml Output Total 2250 ml 600 ml Balance -1355 ml -460 ml Intake Oral 840 ml 80 ml IV Total 55 ml 60 ml Output Urine Total 2250 ml 600 ml # Bowel Movements 0 0 . Laboratory Tests Test 12/13/16 12/14/16 12/15/16 21:45 03:15 02:10 Hemoglobin 8.7 GM/DL 8.5 GM/DL 8.6 GM/DL Hematocrit 26.8 % 25.2 % 26.7 % White Blood Count 8.4 TH/MM3 Red Blood Count 3.10 MIL/MM3 Mean Corpuscular Volume 86.0 FL Mean Corpuscular Hemoglobin 27.8 PG Mean Corpuscular Hemoglobin 32.3 % Concent Red Cell Distribution Width 18.5 % Platelet Count 160 TH/MM3 Mean Platelet Volume 9.4 FL Laboratory Tests Test 12/14/16 12/15/16 03:15 02:10 Sodium Level 135 MEQ/L Potassium Level 4.6 MEQ/L Chloride Level 101 MEQ/L Carbon Dioxide Level 25.4 MEQ/L Anion Gap 9 MEQ/L Blood Urea Nitrogen 31 MG/DL Creatinine 0.80 MG/DL Estimat Glomerular Filtration 99 ML/MIN Rate Random Glucose 210 MG/DL Calcium Level 8.1 MG/DL Total Bilirubin 0.8 MG/DL Direct Bilirubin 0.4 MG/DL Indirect Bilirubin 0.4 MG/DL Aspartate Amino Transf 21 U/L (AST/SGOT) Alanine Aminotransferase 15 U/L (ALT/SGPT) Alkaline Phosphatase 83 U/L Total Protein 6.1 GM/DL Albumin 2.0 GM/DL Imaging Chest X-Ray 12/05/16 0600 Signed Impressions: Service Date/Time: Monday, December 05, 2016 03:30 - CONCLUSION: 1. Cardiomegaly and findings of vascular congestion without overt failure. There has been no significant change when compared to the prior exam. Bobby Matias MD Head CT 12/01/16 0000 Signed Impressions: Service Date/Time: Thursday, December 01, 2016 07:59 - CONCLUSION: 1. Questionable area of low attenuation left temporal lobe could be artifact versus less likely infarct. MRI may be warranted based on clinical history. 2. No midline shift or mass effect. 3. No intraparenchymal hemorrhage. Jagjit Tapia MD Brain MRI 12/01/16 0000 Signed Impressions: Service Date/Time: Thursday, December 01, 2016 12:07 - CONCLUSION: Normal examination. Barrett Rodriguez MD Abdomen X-Ray 12/01/16 0000 Signed Impressions: Service Date/Time: Thursday, December 01, 2016 16:48 - CONCLUSION: No evidence of obstruction. Feeding tube tip in the distal stomach. Barrett Rodriguez MD Abdomen/Pelvis CT 11/29/16 2756 Signed Impressions: Service Date/Time: Wednesday, November 30, 2016 01:35 - CONCLUSION: 1. Markedly abnormal appearance of the distal esophagus consistent with the history of esophageal carcinoma. 2. Atherosclerotic calcifications of the aorta and iliac vessels. 3. Cirrhotic appearance to the liver with a mildly nodular contour present. Erik Simon MD CT Angiography 11/29/16 2348 Signed Impressions: Service Date/Time: Wednesday, November 30, 2016 01:35 - CONCLUSION: 1. No evidence for pulmonary embolism or pneumonia. 2. Abnormal appearance of the esophagus with and soft tissue consistent with the history of carcinoma. Erik Simon MD Chest X-Ray 12/03/16 0600 Signed Impressions: Service Date/Time: Saturday, December 03, 2016 04:43 - CONCLUSION: Increasing consolidation in the left lower lung. Bilateral interstitial changes. Niko Wilcox MD Chest X-Ray 12/03/16 0000 Signed Impressions: Service Date/Time: Saturday, December 03, 2016 07:48 - CONCLUSION: 1. Persistent left retrocardiac density and slight interstitial prominence. Jagjit Tapia MD Chest X-Ray 12/02/16 0000 Signed Impressions: Service Date/Time: Friday, December 02, 2016 15:55 - CONCLUSION: Normal examination with endotracheal tube and central lines in good position. Barrett Rodriguez MD Chest X-Ray 12/02/16 0000 Signed Impressions: Service Date/Time: Friday, December 02, 2016 08:24 - CONCLUSION: Mild perihilar vascular congestion. Endotracheal tube is in good position Barrett Rodriguez MD Chest X-Ray 12/02/16 0000 Signed Impressions: Service Date/Time: Friday, December 02, 2016 06:53 - CONCLUSION: Underinflated examination with atelectasis at the lung bases. Given the technique, no acute abnormality or significant interval change is appreciated. Washington Marroquin MD Physical Exam GENERAL: Awake, alert, not in distress SKIN: Warm and dry. No generalized rash EYES: Extraocular movements full and intact. [place]. No scleral icterus. No injection or drainage. EARS, NOSE AND THROAT: Nose without bleeding or purulent nasal discharge. No sinus tenderness. Orally intubated NECK: Trachea midline. Supple and not tender, no meningeal signs CARDIOVASCULAR: Regular rate and rhythm. No murmurs, rubs or gallops heard. RESPIRATORY: Coarse BS bilaterally. Previous port with intact dressing, open incision, dry ABDOMEN: Soft, not distended, not tender. Bowel sounds present and normoactive. No organomegaly. EXTREMITIES: No clubbing, cyanosis. Has mild pedal edema. No calf tenderness. Well perfused and warm. NEUROLOGICAL: Awake, non-focal PSYCHIATRIC: calm and cooperative LINE: Dry dressing on previous port site BACK: Decubitus in sacral getting dryer : Saxena in place Assessment & Plan Remarks IMPRESSION Sepsis, with shock has MSSA due to port infection - S/P removal port 12/02 - last (+) BC 12/05 Respiratory failure, better - has L base infiltrate, and GNR in sputum - S/P Rx 12/13 (+) UC with Staph aureus, due to current bacteremia Recurrent squamous cell CA Esophageal CA Lethargy and SOB due to sepsis, resolved - has acidosis, resolved Renal insufficiency, due to sepsis and shock, better Confusion - ?meds - better Atrial fib, rate still goes up and down RECOMMENDATION Continue Rifampin, for synergy vs MSSA - follow LFT Continue IV Ancef He will need 6 weeks IV Abx - anticipated end date Jan 15 (6 weeks from last +BC) Monitor progress Wound care to decubitus Labs weekly while on Abx: CBC, creatinine and LFT He is doing well from ID standpoint and can look into D/C I will fill out the antibiotic infusion form when he has final disposition plans D/W Carola Dick MD Dec 15, 2016 09:54
--- NOTE | 2016-12-15 12:12 | PD.WCN.NOT ---
Wound Consult Description: Consult placed via telephone for PRESSURE ULCER for coccyx and left great toe wound per Dr aCrter Communicated with: Jean-Pierre,RN Dr Carter Recommendation: Calazime BID and PRN for gluteal cleft and bilateral buttock wounds [place] left great toe with Cavilon skin prep BID and leave open to air Continue to encourage patient to reposition often Additional Information: Patient seen on for wound evaluation of coccyx and left great toe. Patient independently positioned himself to his left side for assessment. Left buttock noted with denuded partial thickness skinloss area measuring 5cm x 2cm x <0.1cm of ~50% pink and 50% non granulating red tissue, no drainage, no odor, with blanching periwound. Coccyx/Gluteal cleft noted with a moist, full thickness skin loss area measuring 5cm x 1cm x ~0.2cm of ~80% pink and ~20% white tissue in wound bed with jagged sharp edges indicating a moisture and friction related injury with no drainage and no odor noted. Right buttock visualized with a partial thickness skin loss area measuring 1cm x 1cm x <0.1cm of moist red non granulating tissue in a circular shape, that appears to be pressure related, indicating a Stage II pressure injury with no drainage/odor noted. All wounds on buttocks and coccyx were cleansed with NS and gauze. Calazime barrier cream was applied to wounds and left open to air with 1 ultrasorb placed underneath patient for added moisture absorption. Patient is moving independently in bed with strength in left arm and bilateral lower extremities with minimal trouble extending his right arm at the shoulder and elbow areas. Left great toe is noted with a fluid filled blister that measures ~ 2cm x 3cm that was sprayed with Cavilon and left open to air. Thais Ham [facility] Dec 15, 2016 12:12
--- NOTE | 2016-12-15 13:51 | PD.ONC.PN ---
Subjective Subjective Remarks Afebrile overnight. Patient upright in room eating lunch. Feeling much better since getting out of [facility] [place]. Objective Data Date Time Temp Pulse Resp B/P Pulse Ox O2 Delivery O2 Flow Rate FiO2 12/15/16 12:00 96.4 76 24 133/81 99 12/15/16 08:00 98.8 76 18 137/84 95 12/15/16 08:00 136 12/15/16 07:12 91 21 12/15/16 07:00 92 Nasal Cannula 3.00 12/15/16 06:00 84 12/15/16 04:00 85 12/15/16 04:00 98.7 85 17 137/84 90 12/15/16 02:00 82 12/15/16 00:00 98.3 75 16 121/67 100 12/15/16 00:00 75 12/14/16 22:00 129 12/14/16 20:25 96 Nasal Cannula 2.00 12/14/16 20:00 136 12/14/16 20:00 98.5 136 18 140/73 92 12/14/16 19:00 92 Nasal Cannula 3.00 12/14/16 18:00 126 22 133/71 97 12/14/16 17:00 133 20 125/82 92 12/14/16 16:00 98.6 129 22 120/73 89 12/14/16 15:00 120 23 125/83 99 12/14/16 14:39 121 21 123/70 99 12/15/16 12/15/16 12/15/16 06:59 14:59 22:59 Intake Total 140 ml Output Total 600 ml Balance -460 ml Result Diagram: 12/15/1620912/14/16 0315 Laboratory Results Laboratory Tests Test 12/15/16 02:10 White Blood Count 8.4 TH/MM3 Red Blood Count 3.10 MIL/MM3 Hemoglobin 8.6 GM/DL Hematocrit 26.7 % Mean Corpuscular Volume 86.0 FL Mean Corpuscular Hemoglobin 27.8 PG Mean Corpuscular Hemoglobin 32.3 % Concent Red Cell Distribution Width 18.5 % Platelet Count 160 TH/MM3 Mean Platelet Volume 9.4 FL Total Bilirubin 0.8 MG/DL Direct Bilirubin 0.4 MG/DL Indirect Bilirubin 0.4 MG/DL Aspartate Amino Transf 21 U/L (AST/SGOT) Alanine Aminotransferase 15 U/L (ALT/SGPT) Alkaline Phosphatase 83 U/L Total Protein 6.1 GM/DL Albumin 2.0 GM/DL Administered Medications Medications (Trade) Dose Ordered Sig/Geovanny Route PRN Reason Start Time Stop Time Status Last Admin Dose Admin Sodium Chloride (NS Flush) 2 ml UNSCH PRN IV FLUSH FLUSH AFTER USING IV ACCESS 11/30/16 02:45 12/01/16 21:53 Sodium Chloride (NS Flush) 2 ml BID IV FLUSH 11/30/16 09:00 12/15/16 09:00 Oxycodone HCl (Roxicodone) 5 mg Q4H PRN PO PAIN SCALE 3 TO 5 11/30/16 02:45 12/09/16 12:45 Senna/Docusate Sodium (Rere-Colace) 1 tab BID PO 11/30/16 09:00 12/15/16 08:09 Acetaminophen (Tylenol) 325 mg Q4H PRN PO PAIN SCALE 1 TO 2 11/30/16 13:45 12/13/16 17:13 Aspirin (Aspirin Chew) 81 mg DAILY PO 11/30/16 13:45 12/15/16 08:09 Clopidogrel Bisulfate (Plavix) 75 mg DAILY PO 12/01/16 09:00 12/15/16 08:09 Ondansetron HCl (Zofran Inj) 4 mg Q4H PRN IV NAUSEA 11/30/16 13:45 12/05/16 22:06 Sodium Chloride (NS Flush) 5 ml Q21D IV FLUSH 11/30/16 18:00 11/30/16 18:00 Heparin Sodium (Porcine) (Heparin Central Flush) 500 units Q21D IV FLUSH 11/30/16 18:00 11/30/16 18:04 Acetaminophen (Tylenol 650 Mg/ 20 ml Liq) 650 mg Q6H PRN PO FEVER 12/01/16 17:30 12/02/16 01:07 Enoxaparin Sodium (Lovenox Inj) 40 mg Q24H SQ 12/02/16 09:00 12/15/16 08:09 Chlorhexidine Gluconate (Peridex 0.12% Liq) 15 ml BID@08,20 MT 12/02/16 08:00 12/15/16 08:00 Metoprolol Tartrate (Lopressor Inj) 2.5 mg Q6H PRN IV PUSH HR >110 12/02/16 08:15 12/14/16 14:50 Polyethylene Glycol 17 gm 17 gm DAILY PO 12/04/16 09:00 12/15/16 08:09 Potassium Chloride 100 ml @ 50 mls/hr Q2H PRN IV For Potassium 2.8 - 3.2 mEq/L 12/04/16 09:30 12/04/16 21:17 Sodium Phosphate/ Sodium Chloride (Sodium Phosphate Inj/NS 250 ml Inj) 250 ml @ 42 mls/hr UNSCH PRN IV For Phosphorus < 2.5 mg/dL 12/04/16 09:30 12/06/16 06:41 Thiamine HCl (Vitamin B1) 100 mg DAILY PO 12/05/16 09:00 12/15/16 08:09 Multivitamins (Theragran) 1 tab DAILY PO 12/05/16 09:00 12/15/16 09:00 Folic Acid (Folate) 1 mg DAILY PO 12/05/16 09:00 12/15/16 08:09 Morphine Sulfate (Morphine Inj) 2 mg Q2H PRN IV PUSH pain 5-10 12/05/16 10:30 12/14/16 09:07 Rifampin 300 mg 300 mg Q12HR PO 12/06/16 09:15 12/15/16 08:09 Cefazolin Sodium/ Dextrose (Ancef 2 Gm Premix) 50 ml @ 100 mls/hr Q8H IV 12/06/16 10:00 12/15/16 10:00 Diltiazem HCl (Cardizem) 60 mg Q6H PO 12/09/16 05:00 12/15/16 10:15 Lorazepam (Ativan Inj) 1 mg Q4H PRN IV PUSH ANXIETY AND/OR AGITATION 12/09/16 15:15 12/14/16 13:36 Atorvastatin Calcium (Lipitor) 40 mg HS PO 12/12/16 21:00 12/14/16 21:26 Sodium Chloride (NS Flush) See Protocol DAILY IV FLUSH 12/13/16 09:00 12/15/16 09:00 Heparin Sodium (Porcine) (Heparin Central Flush) See Protocol DAILY IV FLUSH 12/13/16 09:00 12/15/16 09:00 Prednisone (Deltasone) 40 mg DAILY PO 12/14/16 09:00 12/15/16 08:10 Pantoprazole Sodium (Protonix) 40 mg Q12HR PO 12/13/16 09:00 12/15/16 08:09 Insulin Detemir (Levemir Inj) 6 units Q12HR SQ 12/14/16 09:00 12/15/16 08:08 Metoprolol Tartrate (Lopressor) 100 mg Q12HR PO 12/14/16 21:00 12/15/16 08:10 Objective Remarks GENERAL: chronically ill male upright in bed, eating lunch. SKIN: Warm and dry. HEAD: Normocephalic. EYES: No injection or drainage. NECK: Supple, trachea midline. CARDIOVASCULAR: +S1/S2, RESPIRATORY: clear to auscultation. GASTROINTESTINAL: Abdomen soft, non-tender, nondistended. EXTREMITIES: No cyanosis. NEUROLOGICAL: awake and alert. normal speech. moving all extremities. Assessment/Plan Problem List: (1) Esophageal adenocarcinoma Status: Acute Plan: --we plan to give weekly Erbitux and XRT outpatient. --patient had OP EGD with biopsy, pathology showed adenocarcinoma. --EGD/Colonoscopy, 11/20/16--showed long stricture in the mid esophagus and distal esophagus, multiple biopsies were performed Pathology revealed invasive adenocarcinoma- distal esophagus --plan for XRT simulation once more stable. also plan for EUS (2) SCC (squamous cell carcinoma) Status: Acute Plan: --has a head and neck, lung malignancy which was locally advanced. --received definitive treatment with surgery. Post surgery he had positive margins and some poor risk features and he was about to get concurrent chemotherapy and radiation and adjuvantly to achieve local control of the disease --PET scan to stage his disease prior to treatment showed an esophageal mass (3) Normocytic anemia Status: Acute Plan: --transfuse packed red blood cells if his hemoglobin drops below 8. --iron deficient (4) Sepsis Status: Resolved Plan: BC, 12.08 no growth BC, 12/07 no growth --BC, 12/05 +, S. Aureus --had removal of port, + S. aureus --on Ancef (5) NSTEMI (non-ST elevated myocardial infarction) Status: Acute Plan: --had elevated troponin and ST-segment changes consistent with acute [place]. 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 Plan 1. simulation this week 2. d/w hospitalist. we plan to give weekly chemotherapy and XRT once patient discharged from the hospital 3. will give iron sucrose x 3 bags for low iron. Attending Statement The exam, history, and the medical decision-making described in the above note were completed with the assistance of the mid-level provider. I reviewed and agree with the findings presented. I attest that I had a [id number] encounter with the patient on the same day, and personally performed and documented my assessment and findings in the medical record. Plan for treatment early next week d/w Dr. Ng Iron deficient. Iron infusions X 3 d.w rn Problem Qualifiers (1) Sepsis: Qualified Code: A41.9 - Sepsis, due to unspecified organism Perla Duran Dec 15, 2016 13:51 Brant Bell MD Dec 15, 2016 23:26
[2016-12-15] MEDS: RESP: ALBUTEROL 2.5 MG/IPRATROPIUM 0.5 MG NEB (PRN) NEB (14:03)
[2016-12-15] MEDS: MORPHINE SULFATE 4 MG/ML INJ IV PUSH PRN ×4 (16:36→23:38)
[2016-12-15] MEDS: ATORVASTATIN 40 MG TAB PO SCH (21:13)
[2016-12-16] VITALS (8 sets, daily range): BP systolic 112–137; BP diastolic 63–83; PULSE 72–88; RESP 18–20; TEMP 96.9–97.6; O2SAT 95–100
[2016-12-16] MEDS ORDERED: NITROGLYCERIN 0.4 MG SL 25 TABS/BTL SL PRN (00:15)
[2016-12-16] MEDS: ceFAZolin 2 GM PREMIX 50 ML IV SCH ×3 (02:31→16:53)
[2016-12-16] MEDS: DILTIAZEM HCL 60 MG TAB PO SCH ×4 (04:33→23:00)
[2016-12-16] MEDS: INSULIN ASPART SUPPLEMENTAL SCALE SQ SCH ×4 (06:05→21:45)
[2016-12-16] MEDS: CHLORHEXIDINE 0.12% (ORAL KIT) 15 ML CUP MT SCH ×2 (08:00→20:00)
[2016-12-16] MEDS: RIFAMPIN 150 MG CAP PO SCH ×2 (08:52→21:43)
[2016-12-16] MEDS: ENOXAPARIN SODIUM 40 MG/0.4 ML SYRINGE SQ SCH (08:52)
[2016-12-16] MEDS: PANTOPRAZOLE SOD 40 MG DELAYED RELEASE TAB PO SCH ×2 (08:53→21:41)
[2016-12-16] MEDS: INSULIN DETEMIR 100 UNITS/ML VIAL SQ SCH ×2 (08:53→21:43)
[2016-12-16] MEDS: METOPROLOL TARTRATE 50 MG TAB PO SCH ×2 (08:53→21:40)
[2016-12-16] MEDS: predniSONE 20 MG TAB PO SCH (08:53)
[2016-12-16] MEDS: FOLIC ACID 1 MG TAB PO SCH (08:53)
[2016-12-16] MEDS: CLOPIDOGREL 75 MG TAB PO SCH (08:53)
[2016-12-16] MEDS: DOCUSATE SODIUM 50 MG/SENNA 8.6 MG TAB PO SCH ×2 (08:53→21:00)
[2016-12-16] MEDS: THIAMINE HCL 100 MG TAB PO SCH (08:53)
[2016-12-16] MEDS: IRON SUCROSE INJ 100 MG in SODIUM CHLORIDE 0.9% INJ 100 ML IV SCH (08:54)
[2016-12-16] MEDS: POLYETHYLENE GLYCOL 17 GM PKG PO SCH (08:54)
[2016-12-16] MEDS: ASPIRIN 81 MG CHEW TAB PO SCH (08:54)
[2016-12-16] MEDS: MORPHINE SULFATE 4 MG/ML INJ IV PUSH PRN ×3 (08:56→21:40)
[2016-12-16] MEDS: SODIUM CHLORIDE 0.9% FLUSH 10 ML FLUSH IV FLUSH SCH ×3 (08:57→21:44)
[2016-12-16] MEDS: MULTIVITAMIN TAB PO SCH (08:59)
--- NOTE | 2016-12-16 09:31 | HHI.PR ---
Subjective Remarks Patient denies any chest pain at the time. When asked if he had chest pain overnight, he states he had some chest discomfort however he complains more of upper extremity pain and weakness. He states he is has difficulty lifting his arms up as they feel heavy. His shortness of breath is about the same not worsened. He is happy to be in a different room and wishes to be able to sit on the recliner later today. Objective Vitals Vital Signs Date Time Temp Pulse Resp B/P Pulse Ox O2 Delivery O2 Flow Rate FiO2 12/16/16 07:56 96 Nasal Cannula 2.00 12/16/16 04:00 84 12/16/16 04:00 97.6 83 18 131/ 96 12/16/16 00:00 97.1 72 20 118/65 98 12/15/16 21:58 Nasal Cannula 3.00 12/15/16 20:54 95 Nasal Cannula 3.00 12/15/16 20:00 98.3 88 20 138/63 95 12/15/16 16:00 96.5 89 20 151/82 98 12/15/16 12:00 96.4 76 24 133/81 99 I/O 12/15/16 12/15/16 12/15/16 12/16/16 12/16/16 12/16/16 07:00 15:00 23:00 07:00 15:00 23:00 Intake Total 140 ml 240 ml 600 ml Output Total 600 ml 450 ml 600 ml 700 ml Balance -460 ml -210 ml -600 ml -100 ml Intake Oral 80 ml 240 ml 500 ml IV Total 60 ml 100 ml Output Urine Total 600 ml 450 ml 600 ml 700 ml # Bowel Movements 0 0 Result Diagram: 12/15/16 0210 12/14/16 0315 Imaging Last Impressions Chest X-Ray 12/12/16 0000 Signed Impressions: Service Date/Time: Monday, December 12, 2016 17:04 - CONCLUSION: Slight CHF and left basilar opacity may be pleural effusion or consolidation. Mali Law MD Head CT 12/01/16 0000 Signed Impressions: Service Date/Time: Thursday, December 01, 2016 07:59 - CONCLUSION: 1. Questionable area of low attenuation left temporal lobe could be artifact versus less likely infarct. MRI may be warranted based on clinical history. 2. No midline shift or mass effect. 3. No intraparenchymal hemorrhage. Jagjit Tapia MD Brain MRI 12/01/16 0000 Signed Impressions: Service Date/Time: Thursday, December 01, 2016 12:07 - CONCLUSION: Normal examination. Barrett Rodriguez MD Abdomen X-Ray 12/01/16 0000 Signed Impressions: Service Date/Time: Thursday, December 01, 2016 16:48 - CONCLUSION: No evidence of obstruction. Feeding tube tip in the distal stomach. Barrett Rodriguez MD Abdomen/Pelvis CT 11/29/16 2356 Signed Impressions: Service Date/Time: Thursday, November 30, 2016 01:35 - CONCLUSION: 1. Markedly abnormal appearance of the distal esophagus consistent with the history of esophageal carcinoma. 2. Atherosclerotic calcifications of the aorta and iliac vessels. 3. Cirrhotic appearance to the liver with a mildly nodular contour present. Erik Simon MD CT Angiography 11/29/16 2348 Signed Impressions: Service Date/Time: Wednesday, November 30, 2016 01:35 - CONCLUSION: 1. No evidence for pulmonary embolism or pneumonia. 2. Abnormal appearance of the esophagus with and soft tissue consistent with the history of carcinoma. Erik Simon MD Objective Remarks GENERAL: appears comfortable CARDIOVASCULAR: appears regular w no obvious murmurs RESPIRATORY: Clear to auscultation. Breath sounds equal bilaterally. No wheezes GASTROINTESTINAL: Abdomen soft, non-tender, nondistended. Normal, active bowel sounds MUSCULOSKELETAL: He has difficulty lifting his upper extremity against gravity. However he is able to but will not resist. Patient is deconditioned from being in bed for such a long period time NEURO: awake, alert , answers questions PSYCH: calm, pleasant. not agitated A/P Problem List: (1) Intractable abdominal pain ICD Code: R10.9 Status: Acute (2) Esophageal carcinoma ICD Code: C15.9 Status: Acute (3) SCC (squamous cell carcinoma) ICD Code: C44.92 Status: Acute (4) Hypokalemia ICD Code: E87.6 Status: Acute (5) Lactic acidosis ICD Code: E87.2 Status: Acute (6) Renal insufficiency ICD Code: N28.9 Status: Acute (7) Elevated troponin ICD Code: R74.8 Status: Acute (8) DM (diabetes mellitus) ICD Code: E11.9 Status: Acute (9) Tobacco abuse ICD Code: Z72.0 Status: Acute (10) NSTEMI (non-ST elevated myocardial infarction) ICD Code: I21.4 Status: Acute (11) Bacteremia due to Gram-positive bacteria ICD Code: R78.81 Status: Acute (12) Encephalopathy, metabolic ICD Code: G93.41 Status: Acute Assessment and Plan 61-year-old male with a medical history significant for left parotid gland squamous cell cancer initially admitted for intractable abdominal pain, lactic acidemia and other nonspecific complaints. The patient was found to have and NSTEMI and later found to be septic. He went into septic shock secondary to MSSA bacteremia from Mwitar-p-Uvbc infection. Patient is status post ICU course including intubation and extubation. He is status post port removal. He is hemodynamically stable Septic shock-resolved MSSA bacteremia Arabzj-s-Igvg infection - s/p removal of Toazxy-p-Isvq by GS. Dressing changes per GS. Appreciate assistance. - Catheter tip culture blood culture and wound culture also positive for MSSA - Continue abx per ID, on IV Ancef, po Rifampin x 6 weeks from port removal and (completed course of Levaquin PO on 12/13). LFTs 12/15/16 wnl Acute metabolic encephalopathy-improving slowly. Agitation - Encephalopathy most likely secondary to severe sepsis - Continue Thiamine, MVI, folic acid - Ativan/Haldol PRN agitation Acute hypoxemic respiratory failure Acute COPD exacerbation Tobacco abuse - Emergently intubated and placed on mechanical ventilation 12/02/16, extubated successfully 12/03/16 - Continue with oxygen keep sat >92% - continue neb treatment - s/p IV Solu-Medrol and now started on po prednisone 40mg daily today, continue to taper, switch to 20mg po daily 12/17/16. Continue for another 3 days , then stop - ABX per ID. See above NSTEMI atrial fibrillation - s/p PCI to LCx by Dr. Krause on 11/30/16 - Continue ASA/Plavix/metoprolol,cardizem and statin. Metoprolol was increased to 100 mg twice a day for better heart rate control. -IV lopressor prn- -continue to monitor and adjust the regimen as needed. 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 Will need EUS however per GI can be done as an outpatient. They have signed off. Appreciate assistance. - on po Protonix - Oncology following. Discussed w oncology team, Pt will need XRT simulation which is scheduled for thursday. He will need weekly Erbitux and XRT outpatient. - Status post surgical resection for L parotid SCC. plan for chemo and radiation per oncology. Discussed w CM, working on SNF placement. Anemia Hb now stable at 8.5, s/p 1unit PRBC. Per heme/onc recs, transfuse if Hb<8. Monitor H&H. Diabetes Hypothyroidism - Electrolyte replacement per protocol - SSI ( medium scale) and Levemir 6 units BID for glycemic control. Monitor BS closely. Will not adjust levemir dose too much for now as I'm tapering off the steroids. adjust as needed. - Continue thyroid supplementation PROPH: - Bilateral lower extremity SCDs. - Lovenox/Protonix Discharge Planning awaiting clearance from oncology and GI has signed off. Schedule for XRT simulation this coming thursday. SNF placement may be difficult as patient requires both chemotherapy and radiation. Other option would be for him to go with home health PT however patient is very deconditioned. Recommend aggressive physical therapy as tolerated while in the hospital I did review patient's troponins overnight. They're minimally elevated and trending down. Patient is chest pain-free. Monitor Guadalupe Carter MD Dec 16, 2016 09:31
--- NOTE | 2016-12-16 13:30 | PD.ONC.PN ---
Subjective Subjective Remarks Afebrile overnight. Patient resting in bed. about to work with PT. Sister at bedside wanting to know about discharge planning. Objective Data Date Time Temp Pulse Resp B/P Pulse Ox O2 Delivery O2 Flow Rate FiO2 12/16/16 12:06 98 Nasal Cannula 2.00 12/16/16 12:00 97.1 76 18 112/66 95 12/16/16 08:00 97.0 87 18 137/83 100 12/16/16 07:56 96 Nasal Cannula 2.00 12/16/16 04:00 84 12/16/16 04:00 97.6 83 18 131/ 96 12/16/16 00:00 97.1 72 20 118/65 98 12/15/16 21:58 Nasal Cannula 3.00 12/15/16 20:54 95 Nasal Cannula 3.00 12/15/16 20:00 98.3 88 20 138/63 95 12/15/16 16:00 96.5 89 20 151/82 98 Result Diagram: 12/15/16 0210 12/14/16 0315 Laboratory Results Laboratory Tests Test 12/16/16 12/16/16 00:34 04:25 Total Creatine Kinase 58 U/L 47 U/L Troponin I 0.10 NG/ML 0.09 NG/ML Administered Medications Medications (Trade) Dose Ordered Sig/Geovanny Route PRN Reason Start Time Stop Time Status Last Admin Dose Admin Sodium Chloride (NS Flush) 2 ml UNSCH PRN IV FLUSH FLUSH AFTER USING IV ACCESS 11/30/16 02:45 12/01/16 21:53 Sodium Chloride (NS Flush) 2 ml BID IV FLUSH 11/30/16 09:00 12/16/16 08:57 Oxycodone HCl (Roxicodone) 5 mg Q4H PRN PO PAIN SCALE 3 TO 5 11/30/16 02:45 12/09/16 12:45 Senna/Docusate Sodium (Rere-Colace) 1 tab BID PO 11/30/16 09:00 12/16/16 08:53 Acetaminophen (Tylenol) 325 mg Q4H PRN PO PAIN SCALE 1 TO 2 11/30/16 13:45 12/13/16 17:13 Aspirin (Aspirin Chew) 81 mg DAILY PO 11/30/16 13:45 12/16/16 08:54 Clopidogrel Bisulfate (Plavix) 75 mg DAILY PO 12/01/16 09:00 12/16/16 08:53 Ondansetron HCl (Zofran Inj) 4 mg Q4H PRN IV NAUSEA 11/30/16 13:45 12/05/16 22:06 Sodium Chloride (NS Flush) 5 ml Q21D IV FLUSH 11/30/16 18:00 11/30/16 18:00 Heparin Sodium (Porcine) (Heparin Central Flush) 500 units Q21D IV FLUSH 11/30/16 18:00 11/30/16 18:04 Acetaminophen (Tylenol 650 Mg/ 20 ml Liq) 650 mg Q6H PRN PO FEVER 12/01/16 17:30 12/02/16 01:07 Enoxaparin Sodium (Lovenox Inj) 40 mg Q24H SQ 12/02/16 09:00 12/16/16 08:52 Chlorhexidine Gluconate (Peridex 0.12% Liq) 15 ml BID@08,20 MT 12/02/16 08:00 12/15/16 08:00 Metoprolol Tartrate (Lopressor Inj) 2.5 mg Q6H PRN IV PUSH HR >110 12/02/16 08:15 12/14/16 14:50 Polyethylene Glycol (Miralax) 17 gm DAILY PO 12/04/16 09:00 12/16/16 08:54 Thiamine HCl (Vitamin B1) 100 mg DAILY PO 12/05/16 09:00 12/16/16 08:53 Multivitamins (Theragran) 1 tab DAILY PO 12/05/16 09:00 12/16/16 08:59 Folic Acid (Folate) 1 mg DAILY PO 12/05/16 09:00 12/16/16 08:53 Morphine Sulfate (Morphine Inj) 2 mg Q2H PRN IV PUSH pain 5-10 12/05/16 10:30 12/16/16 12:02 Rifampin 300 mg 300 mg Q12HR PO 12/06/16 09:15 12/16/16 08:52 Cefazolin Sodium/ Dextrose (Ancef 2 Gm Premix) 50 ml @ 100 mls/hr Q8H IV 12/06/16 10:00 12/16/16 08:51 Diltiazem HCl (Cardizem) 60 mg Q6H PO 12/09/16 05:00 12/16/16 12:01 Lorazepam (Ativan Inj) 1 mg Q4H PRN IV PUSH ANXIETY AND/OR AGITATION 12/09/16 15:15 12/14/16 13:36 Atorvastatin Calcium (Lipitor) 40 mg HS PO 12/12/16 21:00 12/15/16 21:13 Sodium Chloride (NS Flush) See Protocol DAILY IV FLUSH 12/13/16 09:00 12/15/16 09:00 Heparin Sodium (Porcine) (Heparin Central Flush) See Protocol DAILY IV FLUSH 12/13/16 09:00 12/15/16 09:00 Pantoprazole Sodium (Protonix) 40 mg Q12HR PO 12/13/16 09:00 12/16/16 08:53 Insulin Detemir (Levemir Inj) 6 units Q12HR SQ 12/14/16 09:00 12/16/16 08:53 Metoprolol Tartrate 100 mg 100 mg Q12HR PO 12/14/16 21:00 12/16/16 08:53 Iron Sucrose/ Sodium Chloride (Venofer Inj/NS Inj) 105 ml @ 105 mls/hr DAILY IV 12/16/16 09:00 12/18/16 09:59 12/16/16 08:54 Objective Remarks GENERAL: chronically ill male sitting up on side of bed, about to work with PT SKIN: Warm and dry. HEAD: Normocephalic. EYES: No injection or drainage. NECK: Supple, trachea midline. CARDIOVASCULAR: +S1/S2, RESPIRATORY: clear to auscultation. GASTROINTESTINAL: Abdomen soft, non-tender, nondistended. EXTREMITIES: No cyanosis. NEUROLOGICAL: aox3. normal speech. able to move extremities. Assessment/Plan Problem List: (1) Esophageal adenocarcinoma Status: Acute Plan: --we plan to give weekly Erbitux and XRT outpatient. --patient had OP EGD with biopsy, pathology showed adenocarcinoma. --EGD/Colonoscopy, 11/20/16--showed long stricture in the mid esophagus and distal esophagus, multiple biopsies were performed Pathology revealed invasive adenocarcinoma- distal esophagus --XRT simulation planned for 12/17 (2) SCC (squamous cell carcinoma) Status: Acute Plan: --has a head and neck, lung malignancy which was locally advanced. --received definitive treatment with surgery. Post surgery he had positive margins and some poor risk features and he was about to get concurrent chemotherapy and radiation and adjuvantly to achieve local control of the disease --PET scan to stage his disease prior to treatment showed an esophageal mass (3) Normocytic anemia Status: Acute Plan: --transfuse packed red blood cells if his hemoglobin drops below 8. --iron deficient (4) Sepsis Status: Resolved Plan: BC, 12.08 no growth BC, 12/07 no growth --BC, 12/05 +, S. Aureus --had removal of port, + S. aureus --on Ancef (5) NSTEMI (non-ST elevated myocardial infarction) Status: Acute Plan: --had elevated troponin and ST-segment changes consistent with acute [place]. 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 Plan 1. XRT simulation tomorrow 2. case management working on finding a facililty that will accept him while receiving XRT and chemotherapy 3. continue IV iron Attending Statement The exam, history, and the medical decision-making described in the above note were completed with the assistance of the mid-level provider. I reviewed and agree with the findings presented. I attest that I had a [id number] encounter with the patient on the same day, and personally performed and documented my assessment and findings in the medical record. continue PT rehab placement Unable to get EUS since needs to be on Plavix with recent stents and high risk of restenosis if stopped for procedure Will obtain MRI of the abdomen with contrast to asses the gastric mass prior to treatments Plan for XRT this week. If there is a delay in discharge, may also consider first round of treatment while in-patient d/w patient d/w rn Problem Qualifiers (1) Sepsis: Qualified Code: A41.9 - Sepsis, due to unspecified organism Perla Duran Dec 16, 2016 13:30 Brant Bell MD Dec 16, 2016 22:43
--- NOTE | 2016-12-16 13:33 | HHI.IDPN ---
Subjective Subjective Remarks Patient is a 61-year-old male, currently lethargic, and unable to give any history. History has been obtained from the chart. 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 It was reportedly malignant as well. He presented to the hospital complaining of generalized weakness, abdominal pain and progressive swallowing difficulty over the last 3 weeks. Evaluation in the emergency room revealed abnormal EKG, and he underwent cardiac catheterization. He had non-ST CT, and had revascularization with stent placement of his left circumflex artery. Patient is spiked to 103, and there were 2 blood cultures done yesterday that are now reported as growing staph aureus. Patient currently has a Saxena catheter. There is a lot of sediment in his urine, and his urine culture is also showing staph aureus. CT of the abdomen and pelvis did not show any abnormality except the soft tissue mass in the esophagus. He had atherosclerosis of his vasculature. There was also evidence of possible liver cirrhosis. Patient is being evaluated for chemotherapy and radiation, but he has not been started. He had an Leioxj-r-Iigz placement on November 12 on his right upper chest. Notes reviewed patient is out of C Temps ok Mental status much improved On nasal O2 Last (+) BC 12/05 Port removed 12/02 LFT ok Antibiotics Ancef/rifampin Levaquin - to finish 12/13 Lines Port - removed 12/02 PICC Past Medical History Hypertension Hyperlipidemia CAD Diabetes 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 and he had good margins Recurrent squamous cell carcinoma on the left face, with involvement of the parotid gland, status post surgery at [facility] Recently found to have esophageal mass Past Surgical History Appendectomy Liver Biopsy Resection of a squamous cell carcinoma on the left cheek in 2011 Extensive surgery on the left face and neck for recurrent squamous cell carcinoma Port Placement November 12, 2016 Allergies: Coded Allergies: Penicillin (Verified Allergy, Mild, Hives, 11/12/16) Objective . Vital Signs Date Time Temp Pulse Resp B/P Pulse Ox O2 Delivery O2 Flow Rate FiO2 12/16/16 12:06 98 Nasal Cannula 2.00 12/16/16 12:00 97.1 76 18 112/66 95 12/16/16 08:00 97.0 87 18 137/83 100 12/16/16 07:56 96 Nasal Cannula 2.00 12/16/16 04:00 84 12/16/16 04:00 97.6 83 18 131/ 96 12/16/16 00:00 97.1 72 20 118/65 98 12/15/16 21:58 Nasal Cannula 3.00 12/15/16 20:54 95 Nasal Cannula 3.00 12/15/16 20:00 98.3 88 20 138/63 95 12/15/16 16:00 96.5 89 20 151/82 98 12/15/16 12/15/16 12/16/16 15:00 23:00 07:00 Intake Total 240 ml 600 ml Output Total 450 ml 600 ml 700 ml Balance -210 ml -600 ml -100 ml Intake Oral 240 ml 500 ml IV Total 100 ml Output Urine Total 450 ml 600 ml 700 ml # Bowel Movements 0 . Laboratory Tests Test 12/15/16 02:10 White Blood Count 8.4 TH/MM3 Red Blood Count 3.10 MIL/MM3 Hemoglobin 8.6 GM/DL Hematocrit 26.7 % Mean Corpuscular Volume 86.0 FL Mean Corpuscular Hemoglobin 27.8 PG Mean Corpuscular Hemoglobin 32.3 % Concent Red Cell Distribution Width 18.5 % Platelet Count 160 TH/MM3 Mean Platelet Volume 9.4 FL Laboratory Tests Test 12/15/16 12/16/16 12/16/16 02:10 00:34 04:25 Total Bilirubin 0.8 MG/DL Direct Bilirubin 0.4 MG/DL Indirect Bilirubin 0.4 MG/DL Aspartate Amino Transf 21 U/L (AST/SGOT) Alanine Aminotransferase 15 U/L (ALT/SGPT) Alkaline Phosphatase 83 U/L Total Protein 6.1 GM/DL Albumin 2.0 GM/DL Total Creatine Kinase 58 U/L 47 U/L Troponin I 0.10 NG/ML 0.09 NG/ML Imaging Chest X-Ray 12/05/16 0600 Signed Impressions: Service Date/Time: Monday, December 05, 2016 03:30 - CONCLUSION: 1. Cardiomegaly and findings of vascular congestion without overt failure. There has been no significant change when compared to the prior exam. Bobby Matias MD Head CT 12/01/16 0000 Signed Impressions: Service Date/Time: Thursday, December 01, 2016 07:59 - CONCLUSION: 1. Questionable area of low attenuation left temporal lobe could be artifact versus less likely infarct. MRI may be warranted based on clinical history. 2. No midline shift or mass effect. 3. No intraparenchymal hemorrhage. Jagjit Tapia MD Brain MRI 12/01/16 0000 Signed Impressions: Service Date/Time: Thursday, December 01, 2016 12:07 - CONCLUSION: Normal examination. Barrett Rodriguez MD Abdomen X-Ray 12/01/16 0000 Signed Impressions: Service Date/Time: Thursday, December 01, 2016 16:48 - CONCLUSION: No evidence of obstruction. Feeding tube tip in the distal stomach. Barrett Rodriguez MD Abdomen/Pelvis CT 11/29/16 2356 Signed Impressions: Service Date/Time: Wednesday, November 30, 2016 01:35 - CONCLUSION: 1. Markedly abnormal appearance of the distal esophagus consistent with the history of esophageal carcinoma. 2. Atherosclerotic calcifications of the aorta and iliac vessels. 3. Cirrhotic appearance to the liver with a mildly nodular contour present. Erik Simon MD CT Angiography 11/29/16 2348 Signed Impressions: Service Date/Time: Wednesday, November 30, 2016 01:35 - CONCLUSION: 1. No evidence for pulmonary embolism or pneumonia. 2. Abnormal appearance of the esophagus with and soft tissue consistent with the history of carcinoma. Erik Simon MD Chest X-Ray 12/03/16 0600 Signed Impressions: Service Date/Time: Saturday, December 03, 2016 04:43 - CONCLUSION: Increasing consolidation in the left lower lung. Bilateral interstitial changes. Niko Wilcox MD Chest X-Ray 12/03/16 0000 Signed Impressions: Service Date/Time: Saturday, December 03, 2016 07:48 - CONCLUSION: 1. Persistent left retrocardiac density and slight interstitial prominence. Jagjit Tapia MD Chest X-Ray 12/02/16 0000 Signed Impressions: Service Date/Time: Friday, December 02, 2016 15:55 - CONCLUSION: Normal examination with endotracheal tube and central lines in good position. Barrett Rodriguez MD Chest X-Ray 12/02/16 0000 Signed Impressions: Service Date/Time: Friday, December 02, 2016 08:24 - CONCLUSION: Mild perihilar vascular congestion. Endotracheal tube is in good position Barrett Rodriguez MD Chest X-Ray 12/02/16 0000 Signed Impressions: Service Date/Time: Friday, December 02, 2016 06:53 - CONCLUSION: Underinflated examination with atelectasis at the lung bases. Given the technique, no acute abnormality or significant interval change is appreciated. Washington Marroquin MD Physical Exam GENERAL: Awake, alert, not in distress SKIN: Warm and dry. No generalized rash EYES: Extraocular movements full and intact. [place]. No scleral icterus. No injection or drainage. EARS, NOSE AND THROAT: Nose without bleeding or purulent nasal discharge. No sinus tenderness. Orally intubated NECK: Trachea midline. Supple and not tender, no meningeal signs CARDIOVASCULAR: Regular rate and rhythm. No murmurs, rubs or gallops heard. RESPIRATORY: Coarse BS bilaterally. Previous port with intact dressing, open incision, dry ABDOMEN: Soft, not distended, not tender. Bowel sounds present and normoactive. No organomegaly. EXTREMITIES: No clubbing, cyanosis. Has mild pedal edema. No calf tenderness. Well perfused and warm. NEUROLOGICAL: Awake, non-focal PSYCHIATRIC: calm and cooperative LINE: Dry dressing on previous port site BACK: Decubitus in sacral getting dryer : Saxena in place Assessment & Plan Remarks IMPRESSION Sepsis, with shock has MSSA due to port infection, better - S/P removal port 12/02 - last (+) BC 12/05 Respiratory failure, better - has L base infiltrate, and GNR in sputum - S/P Rx 12/13 (+) UC with Staph aureus, due to current bacteremia Recurrent squamous cell CA Esophageal CA Lethargy and SOB due to sepsis, resolved - has acidosis, resolved Renal insufficiency, due to sepsis and shock, better Confusion - ?meds - better Atrial fib, rate still goes up and down RECOMMENDATION Continue Rifampin, for synergy vs MSSA - follow LFT Continue IV Ancef He will need 6 weeks IV Abx - anticipated end date Jan 15 (6 weeks from last +BC) Monitor progress Wound care to decubitus Labs weekly while on Abx: CBC, creatinine and LFT He is doing well from ID standpoint and can look into D/C I will fill out the antibiotic infusion form when he has final disposition plans Carola Nassar MD Dec 16, 2016 13:33
[2016-12-16 13:36] LABS: AUTOMATED NEUTROPHIL # 7.1 TH/MM3 (1.8-7.7); BASOPHIL % 0.2 % (0.0-2.0); EOSINOPHIL % 0.4 % (0.0-4.0); HEMATOCRIT 25.2 % (39.0-51.0); HEMO FLAGS DIFF FINAL; LYMPH % 9.2 % (9.0-44.0); LYMPHOCYTE # 0.8 TH/MM3 (1.0-4.8); MEAN CELL VOLUME 86.3 FL (80.0-100.0); MEAN CORPUSCULAR HGB CONC 33.6 % (32.0-36.0); MONO % 5.6 % (0.0-8.0); NEUT % 84.6 % (16.0-70.0); PLATELET COUNT 158 TH/MM3 (150-450); RED BLOOD COUNT 2.92 MIL/MM3 (4.50-5.90); WHITE BLOOD COUNT 8.4 TH/MM3 (4.0-11.0)
--- NOTE | 2016-12-16 13:50 | EKG ---
Date Performed: 12/16/2016 Time Performed: 07:06:53 PTAGE: 61 years EKG: Sinus rhythm NONSPECIFIC ST ELEVATION Since previous tracing, no significant change noted BORDERLINE ECG PREVIOUS TRACING : 12/11/2016 20.27 DOCTOR: Ellitot Cochran Interpretating Date/Time 12/16/2016 13:48:41
[2016-12-16 14:02] LABS: ANION GAP 7 MEQ/L (5-15); AST (GOT) 18 U/L (15-37); BICARBONATE 27.2 MEQ/L (21.0-32.0); BLOOD UREA NITROGEN 20 MG/DL (7-18); CHLORIDE 100 MEQ/L (98-107); GLOMERULAR FILTRATION RATE 121 ML/MIN (>89); POTASSIUM 4.4 MEQ/L (3.5-5.1); SODIUM (NA) 134 MEQ/L (136-145)
[2016-12-16 14:08] LABS: ALKALINE PHOSPHATASE 91 U/L (45-117); ALT (GPT) 32 U/L (12-78); TOTAL BILIRUBIN ADULT 0.6 MG/DL (0.2-1.0)
[2016-12-16] MEDS: ATORVASTATIN 40 MG TAB PO SCH (21:41)
[2016-12-17] VITALS (22 sets, daily range): BP systolic 102–144; BP diastolic 56–92; PULSE 68–135; RESP 16–20; TEMP 96.2–98.1; O2SAT 96–100
[2016-12-17] MEDS: MORPHINE SULFATE 4 MG/ML INJ IV PUSH PRN (01:20)
[2016-12-17] MEDS: RESP: ALBUTEROL 2.5 MG/IPRATROPIUM 0.5 MG NEB (PRN) NEB ×2 (01:21→20:48)
[2016-12-17] MEDS: ceFAZolin 2 GM PREMIX 50 ML IV SCH ×3 (02:24→17:23)
[2016-12-17] MEDS: DILTIAZEM HCL 60 MG TAB PO SCH ×4 (05:09→23:00)
[2016-12-17] MEDS: INSULIN ASPART SUPPLEMENTAL SCALE SQ SCH ×4 (05:11→20:29)
[2016-12-17] MEDS: CHLORHEXIDINE 0.12% (ORAL KIT) 15 ML CUP MT SCH ×2 (08:00→20:00)
[2016-12-17] MEDS: SODIUM CHLORIDE 0.9% FLUSH 10 ML FLUSH IV FLUSH SCH ×3 (09:00→20:12)
[2016-12-17] MEDS: POLYETHYLENE GLYCOL 17 GM PKG PO SCH (09:00)
[2016-12-17] MEDS: INSULIN DETEMIR 100 UNITS/ML VIAL SQ SCH ×2 (09:00→20:27)
[2016-12-17] MEDS: ASPIRIN 81 MG CHEW TAB PO SCH (10:17)
[2016-12-17] MEDS: METOPROLOL TARTRATE 50 MG TAB PO SCH ×2 (10:17→20:13)
[2016-12-17] MEDS: THIAMINE HCL 100 MG TAB PO SCH (10:17)
[2016-12-17] MEDS: CLOPIDOGREL 75 MG TAB PO SCH (10:17)
[2016-12-17] MEDS: FOLIC ACID 1 MG TAB PO SCH (10:17)
[2016-12-17] MEDS: DOCUSATE SODIUM 50 MG/SENNA 8.6 MG TAB PO SCH ×2 (10:17→20:13)
[2016-12-17] MEDS: predniSONE 20 MG TAB PO SCH (10:17)
[2016-12-17] MEDS: ENOXAPARIN SODIUM 40 MG/0.4 ML SYRINGE SQ SCH (10:18)
[2016-12-17] MEDS: PANTOPRAZOLE SOD 40 MG DELAYED RELEASE TAB PO SCH ×2 (10:27→20:15)
[2016-12-17] MEDS: RIFAMPIN 150 MG CAP PO SCH ×2 (10:27→20:11)
[2016-12-17] MEDS: MULTIVITAMIN TAB PO SCH (10:29)
--- NOTE | 2016-12-17 10:49 | HHI.PR ---
Subjective Remarks Follow-up for MSSA infection No fever or chills. No nausea or vomiting, patient feels good. Oriented. No shortness of breath. For radiotherapy simulation today. Objective Vitals Vital Signs Date Time Temp Pulse Resp B/P Pulse Ox O2 Delivery O2 Flow Rate FiO2 12/17/16 08:00 97.0 81 18 110/60 98 12/17/16 07:45 2.00 12/17/16 04:00 96.2 84 20 119/56 97 12/17/16 04:00 85 12/17/16 03:15 97 Nasal Cannula 2.00 12/17/16 01:26 20 109/65 99 12/17/16 01:25 99 Nasal Cannula 3.00 12/17/16 00:05 68 12/17/16 00:00 97.3 86 20 121/76 96 12/16/16 20:00 82 12/16/16 20:00 96.9 87 18 128/71 97 12/16/16 17:07 98 Nasal Cannula 2.00 12/16/16 16:00 97.1 80 20 118/63 98 12/16/16 12:06 98 Nasal Cannula 2.00 12/16/16 12:00 97.1 76 18 112/66 95 12/16/16 12:00 88 I/O 12/16/16 12/16/16 12/16/16 12/17/16 12/17/16 12/17/16 07:00 15:00 23:00 07:00 15:00 23:00 Intake Total 600 ml 220 ml 360 ml 50 ml Output Total 700 ml 550 ml 1400 ml 1600 ml Balance -100 ml -330 ml -1040 ml 50 ml -1600 ml Intake Oral 500 ml 360 ml IV Total 100 ml 220 ml 50 ml Output Urine Total 700 ml 550 ml 450 ml 1600 ml Stool Total 950 ml # Bowel Movements 0 1 Result Diagram: 12/16/16 0900 12/16/16 0900 Objective Remarks GENERAL: appears comfortable CARDIOVASCULAR: appears regular w no obvious murmurs RESPIRATORY: Clear to auscultation. Breath sounds equal bilaterally. No wheezes GASTROINTESTINAL: Abdomen soft, non-tender, nondistended. Normal, active bowel sounds MUSCULOSKELETAL: Deconditioned, positive for generalized weakness. Left arm PICC in place. NEURO: awake, alert , oriented 3, answers questions , moves extremities. PSYCH: calm, pleasant. not agitated A/P Problem List: (1) Intractable abdominal pain ICD Code: R10.9 Status: Acute (2) Esophageal carcinoma ICD Code: C15.9 Status: Acute (3) SCC (squamous cell carcinoma) ICD Code: C44.92 Status: Acute (4) Hypokalemia ICD Code: E87.6 Status: Acute (5) Lactic acidosis ICD Code: E87.2 Status: Acute (6) Renal insufficiency ICD Code: N28.9 Status: Acute (7) Elevated troponin ICD Code: R74.8 Status: Acute (8) DM (diabetes mellitus) ICD Code: E11.9 Status: Acute (9) Tobacco abuse ICD Code: Z72.0 Status: Acute (10) NSTEMI (non-ST elevated myocardial infarction) ICD Code: I21.4 Status: Acute (11) Bacteremia due to Gram-positive bacteria ICD Code: R78.81 Status: Acute (12) Encephalopathy, metabolic ICD Code: G93.41 Status: Acute Assessment and Plan 61-year-old male with a medical history significant for left parotid gland squamous cell cancer initially admitted for intractable abdominal pain, lactic acidemia and other nonspecific complaints. The patient was found to have and NSTEMI and later found to be septic. He went into septic shock secondary to MSSA bacteremia from Kpnkyx-k-Akfr infection. Patient is status post ICU course including intubation and extubation. He is status post port removal. He is hemodynamically stable Septic shock-resolved MSSA bacteremia Rluwwp-y-Nbzf infection - s/p removal of Sgxgwl-u-Hmmh by GS. Dressing changes per GS. Appreciate assistance. - Catheter tip culture blood culture and wound culture also positive for MSSA - Continue abx per ID, on IV Ancef, po Rifampin x 6 weeks from port removal and (completed course of Levaquin PO on 12/13). LFTs 12/15/16 wnl, continue antibiotics/Ancef until 01/15/17. Acute metabolic encephalopathy Agitation - Encephalopathy most likely secondary to severe sepsis - Continue Thiamine, MVI, folic acid, resolved Acute hypoxemic respiratory failure Acute COPD exacerbation Tobacco abuse - Emergently intubated and placed on mechanical ventilation 12/02/16, extubated successfully 12/03/16 - Continue with oxygen keep sat >92% - continue neb treatment - s/p IV Solu-Medrol and now started on po prednisone 40mg daily today, continue to taper, switch to 20mg po daily 12/17/16. Continue for another 3 days , then stop NSTEMI atrial fibrillation - s/p PCI to LCx by Dr. Krause on 11/30/16 - Continue ASA/Plavix/metoprolol,cardizem and statin. Metoprolol was increased to 100 mg twice a day for better heart rate control. -IV lopressor prn- -continue to monitor and adjust the regimen as needed. 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 Will need EUS however per GI can be done as an outpatient. They have signed off. Appreciate assistance. - on po Protonix - Oncology following. Discussed w oncology team, Pt will need XRT simulation which is scheduled for today. He will need weekly Erbitux and XRT outpatient. To verify placement, call that following. - Status post surgical resection for L parotid SCC. plan for chemo and radiation per oncology. Anemia Hb now stable at 8.5, s/p 1unit PRBC. Per heme/onc recs, transfuse if Hb<8. Monitor H&H. Diabetes Hypothyroidism - Electrolyte replacement per protocol - SSI ( medium scale) and Levemir 6 units BID for glycemic control. Monitor BS closely. Will not adjust levemir dose too much for now as I'm tapering off the steroids. adjust as needed. - Continue thyroid supplementation PROPH: - Bilateral lower extremity SCDs. - Lovenox/Protonix Remove Saxena catheter Discharge Planning Cleared by GS, awaiting clearance from oncology. Needs placement, will also need weekly chemotherapy and radiotherapy. GI has signed off. Smiley Rodgers MD Dec 17, 2016 10:49
[2016-12-17] MEDS ORDERED: OXYC-392 PO (10:51)
--- NOTE | 2016-12-17 11:35 | EKG ---
Date Performed: 12/16/2016 Time Performed: 12:50:05 PTAGE: 61 years EKG: Sinus rhythm LOW QRS VOLTAGE IN PRECORDIAL LEADS POSSIBLE ANTERIOR MYOCARDIAL INFARCTION , OF INDETERMINATE AGE I NFERIOR MYOCARDIAL INFARCTION , PROBABLY OLD ABNORMAL ECG PREVIOUS TRACING : 12/16/2016 07.06 DOCTOR: Barrett Chen Interpretating Date/Time 12/17/2016 11:34:27
[2016-12-17] MEDS: IRON SUCROSE INJ 100 MG in SODIUM CHLORIDE 0.9% INJ 100 ML IV SCH (12:37)
[2016-12-17] MEDS ORDERED: GADODIAMIDE PF 287 MG/ML 5 ML VIAL (for RAD MRI) IV ONE (15:41)
--- NOTE | 2016-12-17 16:21 | RADRPT ---
EXAM DATE/TIME: 12/17/2016 13:59 [facility] COMPARISON: CT ABDOMEN & PELVIS W CONTRAST, November 30, 2016, 1:35. INDICATIONS : Abdominal pain. Gastric adenocarcinoma. CONTRAST: 21 cc Omniscan (gadodiamide) IV MEDICAL HISTORY : Diabetes mellitus type 2. Squamous cell carcinoma, esophageal carcinoma and renal insufficiency. SURGICAL HISTORY : Coronary artery stent. Appendectomy. Port removed. ENCOUNTER: Subsequent ACUITY: 3 months PAIN SCORE: 8/10 LOCATION: Abdomen. TECHNIQUE: Multiplanar, multisequence magnetic resonance imaging of the abdomen was performed without and with i ntravenous contrast. FINDINGS: Examination quality is degraded by respiratory motion artifact. LIVER: Liver measures 16.7 cm and demonstrates normal signal intensity. There is a questionable mild nodular contour. No lesion is identified. Portal vein is within normal limits. BILIARY: There is no intra- or extra-hepatic biliary ductal dilatation. Gallbladder contains no stones. SPLEEN: Spleen measures 13 cm in length. PANCREAS: No acute abnormality is identified. ADRENALS: Within normal limits. KIDNEYS: Normal size and signal intensity. There is no hydronephrosis or mass. OTHER: Aorta is nonaneurysmal. There is a single mildly enlarged left gastric lymph node measuring 12 x 10 m m, stable from the prior study. There is thickening of the distal esophagus. Moderate-sized bilateral pleural effusions are present, left slightly larger than right. A small pericardial effusion is pres ent. There is diffuse subcutaneous edema. CONCLUSION: 1. No acute finding is identified to explain the abdominal pain. 2. Stable thickening of the distal esophagus. There is a single mildly enlarged left gastric lymph no de measuring 12 x 10 mm. 3. Moderate sized bilateral pleural effusions, left larger than right, with associated compressive at electasis. Washington Marroquin MD on December 17, 2016 at 16:12 Board Certified Radiologist. This report was verified electronically.
[2016-12-17] MEDS: ATORVASTATIN 40 MG TAB PO SCH (20:12)
[2016-12-17] MEDS: METOPROLOL TARTRATE 5 MG/5 ML VIAL IV PUSH PRN (21:17)
[2016-12-17] MEDS ORDERED: DILTIAZEM HCL 25 MG/5 ML VIAL IV PRN (21:30)
[2016-12-17] MEDS ORDERED: DILTIAZEM HCL 25 MG/5 ML VIAL IVP ONE (21:30)
[2016-12-17] MEDS ORDERED: DILTIAZEM INJ 125 MG in SODIUM CHLORIDE 0.9% INJ 100 ML IV SCH (21:30)
[2016-12-18] VITALS (26 sets, daily range): BP systolic 117–147; BP diastolic 64–79; PULSE 72–146; RESP 16–18; TEMP 97.2–98.2; O2SAT 95–97
--- NOTE | 2016-12-18 00:04 | PD.ONC.PN ---
Subjective Subjective Remarks Late note entry patient seen on 12/18/16 will coordinate chemotherapy with Rad onc Simulation done today. If he begins XRT this week. The would need to give 1st concurrent chemotherapy treatment while inpatient If XRt is delayed till next week, then he can be discharged and chemotehrapy will be given outpatient This is early stage gastric cancer and the treatment intent is curative will d/w Dr. randall in AM MRI of abdomen was reviewed and discussed with patient d/w rn Objective Data Date Time Temp Pulse Resp B/P Pulse Ox O2 Delivery O2 Flow Rate FiO2 12/17/16 23:12 96.9 76 16 102/58 99 12/17/16 22:43 68 12/17/16 22:01 135 12/17/16 21:52 110/66 12/17/16 21:17 133 12/17/16 21:10 98.1 125 18 112/61 97 12/17/16 20:23 130 12/17/16 20:00 96.7 132 18 116/70 97 12/17/16 18:05 Nasal Cannula 2.00 12/17/16 16:15 70 12/17/16 16:00 98.1 84 18 144/92 99 12/17/16 12:13 75 12/17/16 11:45 96.5 86 18 112/74 100 12/17/16 10:00 97 Nasal Cannula 2.00 12/17/16 08:31 84 12/17/16 08:00 97.0 81 18 110/60 98 12/17/16 07:45 2.00 12/17/16 04:00 96.2 84 20 119/56 97 12/17/16 04:00 85 12/17/16 03:15 97 Nasal Cannula 2.00 12/17/16 01:26 20 109/65 99 12/17/16 01:25 99 Nasal Cannula 3.00 12/17/16 00:05 68 Result Diagram: 12/16/16 0900 12/16/16 0900 Administered Medications Medications (Trade) Dose Ordered Sig/Geovanny Route PRN Reason Start Time Stop Time Status Last Admin Dose Admin Sodium Chloride (NS Flush) 2 ml UNSCH PRN IV FLUSH FLUSH AFTER USING IV ACCESS 11/30/16 02:45 12/01/16 21:53 Sodium Chloride (NS Flush) 2 ml BID IV FLUSH 11/30/16 09:00 12/17/16 20:12 Oxycodone HCl (Roxicodone) 5 mg Q4H PRN PO PAIN SCALE 3 TO 5 11/30/16 02:45 12/17/16 15:47 Senna/Docusate Sodium (Rere-Colace) 1 tab BID PO 11/30/16 09:00 12/17/16 20:13 Acetaminophen (Tylenol) 325 mg Q4H PRN PO PAIN SCALE 1 TO 2 11/30/16 13:45 12/13/16 17:13 Aspirin (Aspirin Chew) 81 mg DAILY PO 11/30/16 13:45 12/17/16 10:17 Clopidogrel Bisulfate (Plavix) 75 mg DAILY PO 12/01/16 09:00 12/17/16 10:17 Ondansetron HCl (Zofran Inj) 4 mg Q4H PRN IV NAUSEA 11/30/16 13:45 12/05/16 22:06 Sodium Chloride (NS Flush) 5 ml Q21D IV FLUSH 11/30/16 18:00 11/30/16 18:00 Heparin Sodium (Porcine) (Heparin Central Flush) 500 units Q21D IV FLUSH 11/30/16 18:00 11/30/16 18:04 Acetaminophen (Tylenol 650 Mg/ 20 ml Liq) 650 mg Q6H PRN PO FEVER 12/01/16 17:30 12/02/16 01:07 Enoxaparin Sodium (Lovenox Inj) 40 mg Q24H SQ 12/02/16 09:00 12/17/16 10:18 Chlorhexidine Gluconate (Peridex 0.12% Liq) 15 ml BID@08,20 MT 12/02/16 08:00 12/15/16 08:00 Metoprolol Tartrate (Lopressor Inj) 2.5 mg Q6H PRN IV PUSH HR >110 12/02/16 08:15 12/17/16 21:17 Polyethylene Glycol (Miralax) 17 gm DAILY PO 12/04/16 09:00 12/16/16 08:54 Thiamine HCl (Vitamin B1) 100 mg DAILY PO 12/05/16 09:00 12/17/16 10:17 Multivitamins (Theragran) 1 tab DAILY PO 12/05/16 09:00 12/17/16 10:29 Folic Acid (Folate) 1 mg DAILY PO 12/05/16 09:00 12/17/16 10:17 Rifampin 300 mg 300 mg Q12HR PO 12/06/16 09:15 01/15/17 23:00 12/17/16 20:11 Cefazolin Sodium/ Dextrose (Ancef 2 Gm Premix) 50 ml @ 100 mls/hr Q8H IV 12/06/16 10:00 01/15/17 23:00 12/17/16 17:23 Diltiazem HCl (Cardizem) 60 mg Q6H PO 12/09/16 05:00 12/17/16 17:23 Lorazepam (Ativan Inj) 1 mg Q4H PRN IV PUSH ANXIETY AND/OR AGITATION 12/09/16 15:15 12/14/16 13:36 Atorvastatin Calcium (Lipitor) 40 mg HS PO 12/12/16 21:00 12/17/16 20:12 Sodium Chloride (NS Flush) See Protocol DAILY IV FLUSH 12/13/16 09:00 12/17/16 09:00 Heparin Sodium (Porcine) (Heparin Central Flush) See Protocol DAILY IV FLUSH 12/13/16 09:00 12/17/16 10:16 Pantoprazole Sodium (Protonix) 40 mg Q12HR PO 12/13/16 09:00 12/17/16 20:15 Insulin Detemir (Levemir Inj) 6 units Q12HR SQ 12/14/16 09:00 12/17/16 20:27 Metoprolol Tartrate 100 mg 100 mg Q12HR PO 12/14/16 21:00 12/17/16 20:13 Iron Sucrose/ Sodium Chloride (Venofer Inj/NS Inj) 105 ml @ 105 mls/hr DAILY IV 12/16/16 09:00 12/18/16 09:59 12/17/16 12:37 Prednisone 20 mg 20 mg DAILY PO 12/17/16 09:00 12/17/16 10:17 Diltiazem HCl/ Sodium Chloride (Cardizem Inj/NS Inj) 125 ml @ 0 mls/hr TITRATE IV 12/17/16 21:30 12/17/16 22:12 Objective Remarks GENERAL: weak, nad SKIN: Warm and dry. LYMPHATIC: No adenopathy. CARDIOVASCULAR: Regular rate and rhythm without murmurs. RESPIRATORY: Breath sounds equal bilaterally. No accessory muscle use. GASTROINTESTINAL: Abdomen soft, non-tender, nondistended. EXTREMITIES: No cyanosis, or edema. Assessment/Plan Problem List: (1) Esophageal adenocarcinoma Status: Acute Plan: --we plan to give weekly Erbitux and XRT outpatient. --patient had OP EGD with biopsy, pathology showed adenocarcinoma. --EGD/Colonoscopy, 11/20/16--showed long stricture in the mid esophagus and distal esophagus, multiple biopsies were performed Pathology revealed invasive adenocarcinoma- distal esophagus --XRT simulation planned for 12/17 (2) SCC (squamous cell carcinoma) Status: Acute Plan: --has a head and neck, lung malignancy which was locally advanced. --received definitive treatment with surgery. Post surgery he had positive margins and some poor risk features and he was about to get concurrent chemotherapy and radiation and adjuvantly to achieve local control of the disease --PET scan to stage his disease prior to treatment showed an esophageal mass (3) Normocytic anemia Status: Acute Plan: --transfuse packed red blood cells if his hemoglobin drops below 8. --iron deficient (4) Sepsis Status: Resolved Plan: BC, 7. no growth BC, 12/07 no growth --BC, 12/05 +, S. Aureus --had removal of port, + S. aureus --on Ancef (5) NSTEMI (non-ST elevated myocardial infarction) Status: Acute Plan: --had elevated troponin and ST-segment changes consistent with acute NM. 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 Plan 1. XRT simulation today 2. case management working on finding a facililty that will accept him while receiving XRT and chemotherapy 3. continue IV iron Plan documented above Problem Qualifiers (1) Sepsis: Qualified Code: A41.9 - Sepsis, due to unspecified organism Brant Bell MD Dec 18, 2016 00:04
[2016-12-18] MEDS: ceFAZolin 2 GM PREMIX 50 ML IV SCH ×3 (01:57→17:25)
[2016-12-18] MEDS: DILTIAZEM HCL 60 MG TAB PO SCH ×3 (04:13→17:25)
[2016-12-18] MEDS: INSULIN ASPART SUPPLEMENTAL SCALE SQ SCH ×4 (06:32→20:54)
[2016-12-18] MEDS: DOCUSATE SODIUM 50 MG/SENNA 8.6 MG TAB PO SCH ×2 (07:52→20:52)
[2016-12-18] MEDS: METOPROLOL TARTRATE 50 MG TAB PO SCH ×2 (07:52→20:51)
[2016-12-18] MEDS: ENOXAPARIN SODIUM 40 MG/0.4 ML SYRINGE SQ SCH (07:52)
[2016-12-18] MEDS: FOLIC ACID 1 MG TAB PO SCH (07:52)
[2016-12-18] MEDS: SODIUM CHLORIDE 0.9% FLUSH 10 ML FLUSH IV FLUSH SCH ×3 (07:53→20:52)
[2016-12-18] MEDS: CHLORHEXIDINE 0.12% (ORAL KIT) 15 ML CUP MT SCH ×2 (07:54→20:00)
[2016-12-18] MEDS: ASPIRIN 81 MG CHEW TAB PO SCH (07:54)
[2016-12-18] MEDS: PANTOPRAZOLE SOD 40 MG DELAYED RELEASE TAB PO SCH ×2 (07:54→20:51)
[2016-12-18] MEDS: predniSONE 20 MG TAB PO SCH (07:54)
[2016-12-18] MEDS: THIAMINE HCL 100 MG TAB PO SCH (07:54)
[2016-12-18] MEDS: MULTIVITAMIN TAB PO SCH (07:54)
[2016-12-18] MEDS: CLOPIDOGREL 75 MG TAB PO SCH (07:54)
[2016-12-18] MEDS: RIFAMPIN 150 MG CAP PO SCH ×2 (08:01→20:51)
[2016-12-18] MEDS: IRON SUCROSE INJ 100 MG in SODIUM CHLORIDE 0.9% INJ 100 ML IV SCH (08:01)
[2016-12-18] MEDS: INSULIN DETEMIR 100 UNITS/ML VIAL SQ SCH ×2 (08:02→20:54)
[2016-12-18] MEDS: POLYETHYLENE GLYCOL 17 GM PKG PO SCH (08:07)
--- NOTE | 2016-12-18 10:25 | HHI.PR ---
Subjective Subjective Notes Resting in bed Transferred to [facility] for elevated HR Objective Vitals/I&O Vital Signs Date Time Temp Pulse Resp B/P Pulse Ox O2 Delivery O2 Flow Rate FiO2 12/18/16 08:00 98.2 83 16 118/65 96 12/18/16 07:00 2.00 12/18/16 04:14 Nasal Cannula 12/15/16 07:12 21 Cardiovascular: Regular Lungs: Clear Abdomen: Non-distended, Non-tender Extremities: Other (mild BLE edema ) Narrative Exam RIGHT subclavian: s/p port removal; packing removed; wound bed is c/d/i; repacked and dry dressing applied A/P Assessment and Plan 61 year old male s/p Infusaport removal -Dressing change daily: saline soaked 2x2 loosely packed into wound; cover with dry 4x4 and secure with paper tape -GS will sign off; please call with questions Attending Note - Dr. Rich Wound is clean and granulating The exam, history, and the medical decision-making described in the above note were completed with the assistance of the mid-level provider. I reviewed and agree with the findings presented. I attest that I had a [id number] encounter with the patient on the same day, and personally performed and documented my assessment and findings in the medical record. Cindy Parekh Dec 18, 2016 10:25 Bebeto Rich MD Jan 19, 2017 16:40
--- NOTE | 2016-12-18 15:39 | EKG ---
Date Performed: 12/17/2016 Time Performed: 21:07:07 PTAGE: 61 years EKG: ATRIAL FLUTTER/TACHYCARDIA WITH RAPID VENTRICULAR RESPONSE LOW QRS VOLTAGE IN PRECORDIAL LE ADS INFERIOR MYOCARDIAL INFARCTION , PROBABLY OLD When compared to previous tracing, the patient now appears to Be in atrial flutter with rapid ventricular rate. ABNORMAL ECG PREVIOUS TRACING : 12/16/2016 12.50 DOCTOR: Ami Soriano Interpretating Date/Time 12/18/2016 15:39:00
--- NOTE | 2016-12-18 16:50 | PD.ONC.PN ---
Subjective Subjective Remarks Afebrile overnight Patient sitting up in chair at bedside with visitor present He states he had some claustrophobia with radiation simulation Per case aide, he has been accepted to [facility] Objective Data Date Time Temp Pulse Resp B/P Pulse Ox O2 Delivery O2 Flow Rate FiO2 12/18/16 13:00 82 12/18/16 12:00 81 12/18/16 12:00 97.2 84 16 117/64 96 12/18/16 11:00 85 12/18/16 10:23 96 Nasal Cannula 2.00 12/18/16 08:00 98.2 83 16 118/65 96 12/18/16 08:00 80 12/18/16 07:00 96 2.00 12/18/16 05:00 78 12/18/16 04:14 98 Nasal Cannula 2.00 12/18/16 04:14 98.0 79 18 125/72 97 12/18/16 04:00 80 12/18/16 03:00 86 12/18/16 02:00 78 12/18/16 01:00 76 12/18/16 00:00 72 12/17/16 23:56 98.0 73 18 107/64 97 12/17/16 23:12 96.9 76 16 102/58 99 12/17/16 22:43 68 12/17/16 22:01 135 12/17/16 21:52 110/66 12/17/16 21:17 133 12/17/16 21:10 98.1 125 18 112/61 97 12/17/16 20:23 130 12/17/16 20:00 96.7 132 18 116/70 97 12/17/16 18:05 Nasal Cannula 2.00 Result Diagram: 12/16/16 0900 12/16/16 0900 Administered Medications Medications (Trade) Dose Ordered Sig/Geovanny Route PRN Reason Start Time Stop Time Status Last Admin Dose Admin Sodium Chloride (NS Flush) 2 ml UNSCH PRN IV FLUSH FLUSH AFTER USING IV ACCESS 11/30/16 02:45 12/01/16 21:53 Sodium Chloride (NS Flush) 2 ml BID IV FLUSH 11/30/16 09:00 12/18/16 07:54 Oxycodone HCl (Roxicodone) 5 mg Q4H PRN PO PAIN SCALE 3 TO 5 11/30/16 02:45 12/17/16 15:47 Senna/Docusate Sodium (Rere-Colace) 1 tab BID PO 11/30/16 09:00 12/18/16 07:52 Acetaminophen (Tylenol) 325 mg Q4H PRN PO PAIN SCALE 1 TO 2 11/30/16 13:45 12/13/16 17:13 Aspirin (Aspirin Chew) 81 mg DAILY PO 11/30/16 13:45 12/18/16 07:54 Clopidogrel Bisulfate (Plavix) 75 mg DAILY PO 12/01/16 09:00 12/18/16 07:54 Ondansetron HCl (Zofran Inj) 4 mg Q4H PRN IV NAUSEA 11/30/16 13:45 12/05/16 22:06 Sodium Chloride (NS Flush) 5 ml Q21D IV FLUSH 11/30/16 18:00 11/30/16 18:00 Heparin Sodium (Porcine) (Heparin Central Flush) 500 units Q21D IV FLUSH 11/30/16 18:00 11/30/16 18:04 Acetaminophen (Tylenol 650 Mg/ 20 ml Liq) 650 mg Q6H PRN PO FEVER 12/01/16 17:30 12/02/16 01:07 Enoxaparin Sodium (Lovenox Inj) 40 mg Q24H SQ 12/02/16 09:00 12/18/16 07:52 Chlorhexidine Gluconate (Peridex 0.12% Liq) 15 ml BID@08,20 MT 12/02/16 08:00 12/15/16 08:00 Metoprolol Tartrate (Lopressor Inj) 2.5 mg Q6H PRN IV PUSH HR >110 12/02/16 08:15 12/17/16 21:17 Polyethylene Glycol (Miralax) 17 gm DAILY PO 12/04/16 09:00 12/16/16 08:54 Thiamine HCl (Vitamin B1) 100 mg DAILY PO 12/05/16 09:00 12/18/16 07:54 Multivitamins (Theragran) 1 tab DAILY PO 12/05/16 09:00 12/18/16 07:54 Folic Acid (Folate) 1 mg DAILY PO 12/05/16 09:00 12/18/16 07:52 Rifampin 300 mg 300 mg Q12HR PO 12/06/16 09:15 01/15/17 23:00 12/18/16 08:01 Cefazolin Sodium/ Dextrose (Ancef 2 Gm Premix) 50 ml @ 100 mls/hr Q8H IV 12/06/16 10:00 01/15/17 23:00 12/18/16 08:03 Diltiazem HCl (Cardizem) 60 mg Q6H PO 12/09/16 05:00 12/18/16 11:58 Lorazepam (Ativan Inj) 1 mg Q4H PRN IV PUSH ANXIETY AND/OR AGITATION 12/09/16 15:15 12/14/16 13:36 Atorvastatin Calcium (Lipitor) 40 mg HS PO 12/12/16 21:00 12/17/16 20:12 Sodium Chloride (NS Flush) See Protocol DAILY IV FLUSH 12/13/16 09:00 12/18/16 07:53 Heparin Sodium (Porcine) (Heparin Central Flush) See Protocol DAILY IV FLUSH 12/13/16 09:00 12/18/16 07:53 Pantoprazole Sodium (Protonix) 40 mg Q12HR PO 12/13/16 09:00 12/18/16 07:54 Insulin Detemir (Levemir Inj) 6 units Q12HR SQ 12/14/16 09:00 12/18/16 08:02 Metoprolol Tartrate (Lopressor) 100 mg Q12HR PO 12/14/16 21:00 12/18/16 07:52 Prednisone (Deltasone) 20 mg DAILY PO 12/17/16 09:00 12/18/16 07:54 Oxycodone HCl 10 mg 10 mg Q4H PRN PO PAIN 6-10 12/17/16 19:00 12/18/16 12:59 Diltiazem HCl/ Sodium Chloride (Cardizem Inj/NS Inj) 125 ml @ 0 mls/hr TITRATE IV 12/17/16 21:30 12/17/16 22:12 Objective Remarks GENERAL: Chronically ill-appearing male sitting up in chair at bedside in no distress SKIN: Warm and dry. HEAD: Normocephalic. EYES: No injection or drainage. NECK: Supple, trachea midline. CARDIOVASCULAR: +S1/S2, RESPIRATORY: clear to auscultation. GASTROINTESTINAL: Abdomen soft, non-tender, nondistended. EXTREMITIES: No cyanosis. Generalized edema NEUROLOGICAL: Normal speech. Moving all extremities. Assessment/Plan Problem List: (1) Esophageal adenocarcinoma Status: Acute Plan: --we plan to give weekly Erbitux and XRT outpatient. --patient had OP EGD with biopsy, pathology showed adenocarcinoma. --EGD/Colonoscopy, 11/20/16--showed long stricture in the mid esophagus and distal esophagus, multiple biopsies were performed Pathology revealed invasive adenocarcinoma- distal esophagus --XRT simulation done 12/17. (2) SCC (squamous cell carcinoma) Status: Acute Plan: --has a head and neck, lung malignancy which was locally advanced. --received definitive treatment with surgery. Post surgery he had positive margins and some poor risk features and he was about to get concurrent chemotherapy and radiation and adjuvantly to achieve local control of the disease --PET scan to stage his disease prior to treatment showed an esophageal mass (3) Normocytic anemia Status: Acute Plan: --transfuse packed red blood cells if his hemoglobin drops below 8. --iron deficient (4) Sepsis Status: Resolved Plan: BC, 7. no growth BC, 12/07 no growth --BC, 12/05 +, S. Aureus --had removal of port, + S. aureus --on Ancef (5) NSTEMI (non-ST elevated myocardial infarction) Status: Acute Plan: --had elevated troponin and ST-segment changes consistent with acute CO. 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 Plan 1. Per case management the patient will be able to go to [facility] for rehabilitation and receive XRT and chemotherapy while there. 2. Will plan to start chemotherapy as an outpatient 3. Monitor CBC 4. Continue supportive care, physical therapy Discussed with case aide Attending Statement The exam, history, and the medical decision-making described in the above note were completed with the assistance of the mid-level provider. I reviewed and agree with the findings presented. I attest that I had a [id number] encounter with the patient on the same day, and personally performed and documented my assessment and findings in the medical record. OK to D/C to rehab outpatient f/u with me in 1 week after discharge Problem Qualifiers (1) Sepsis: Qualified Code: A41.9 - Sepsis, due to unspecified organism Shey Flores Dec 18, 2016 16:50 Brant Bell MD Dec 18, 2016 22:46
--- NOTE | 2016-12-18 17:24 | HHI.PR ---
Subjective Remarks Patient seen today around 1 PM. Denies any chest pain or shortness of breath. Was incontinent of urine. Says he could not get to his urinal in time. Denies any burning Objective Vital Signs Date Time Temp Pulse Resp B/P Pulse Ox O2 Delivery O2 Flow Rate FiO2 12/18/16 16:52 85 12/18/16 13:00 82 12/18/16 12:00 81 12/18/16 12:00 97.2 84 16 117/64 96 12/18/16 11:00 85 12/18/16 10:23 96 Nasal Cannula 2.00 12/18/16 08:00 98.2 83 16 118/65 96 12/18/16 08:00 80 12/18/16 07:00 96 2.00 12/18/16 05:00 78 12/18/16 04:14 98 Nasal Cannula 2.00 12/18/16 04:14 98.0 79 18 125/72 97 12/18/16 04:00 80 12/18/16 03:00 86 12/18/16 02:00 78 12/18/16 01:00 76 12/18/16 00:00 72 12/17/16 23:56 98.0 73 18 107/64 97 12/17/16 23:12 96.9 76 16 102/58 99 12/17/16 22:43 68 12/17/16 22:01 135 12/17/16 21:52 110/66 12/17/16 21:17 133 12/17/16 21:10 98.1 125 18 112/61 97 12/17/16 20:23 130 12/17/16 20:00 96.7 132 18 116/70 97 12/17/16 18:05 Nasal Cannula 2.00 I/O 12/17/16 12/17/16 12/17/16 12/18/16 12/18/16 12/18/16 06:59 14:59 22:59 06:59 14:59 22:59 Intake Total 50 ml 0 ml Output Total 1600 ml 400 ml Balance 50 ml -1600 ml -400 ml Intake Oral 0 ml IV Total 50 ml Output Urine Total 1600 ml 400 ml # Bowel Movements 0 Result Diagram: 12/16/16 0900 12/16/16 09 Objective Remarks GENERAL: sitting up in chair. alert.Appears comfortable. SKIN: no rashes. HEAD: Normocephalic. EYES: No scleral icterus. No injection or drainage. NECK: trachea midline. No JVD. MUSCULOSKELETAL: No cyanosis, or edema. A/P Assessment and Plan =====12/18/16===== -Vitals reviewed and acceptable. Systolic blood pressure 117 Repeat basic labs ordered for tomorrow- No acute changes. Continue on antibiotics until 01/15. -Undergoing XRT -Discharged to SNF Pending clearance from oncology. 61-year-old male with a medical history significant for left parotid gland squamous cell cancer initially admitted for intractable abdominal pain, lactic acidemia and other nonspecific complaints. The patient was found to have and NSTEMI and later found to be septic. He went into septic shock secondary to MSSA bacteremia from Oitlws-o-[id number] infection. Patient is status post ICU course including intubation and extubation. He is status post port removal. He is hemodynamically stable //Septic shock-resolved //MSSA bacteremia //Lvdhga-u-Vzqi infection - s/p removal of Cvjpmy-c-Wdlj by GS. Dressing changes per GS. Appreciate assistance. - Catheter tip culture blood culture and wound culture also positive for MSSA - Continue abx per ID, on IV Ancef, po Rifampin x 6 weeks from port removal and (completed course of Levaquin PO on 12/13). LFTs 12/15/16 wnl, continue antibiotics/Ancef until 01/15/17. //Acute metabolic encephalopathy //Agitation - Encephalopathy most likely secondary to severe sepsis - Continue Thiamine, MVI, folic acid, resolved //Acute hypoxemic respiratory failure //Acute COPD exacerbation //Tobacco abuse - Emergently intubated and placed on mechanical ventilation 12/02/16, extubated successfully 12/03/16 - Continue with oxygen keep sat >92% - continue neb treatment - s/p IV Solu-Medrol and now started on po prednisone 40mg daily today, continue to taper, switch to 20mg po daily 12/17/16. Continue for another 3 days , then stop //NSTEMI //atrial fibrillation - s/p PCI to LCx by Dr. Krause on 11/30/16 - Continue ASA/Plavix/metoprolol,cardizem and statin. Metoprolol was increased to 100 mg twice a day for better heart rate control. -IV lopressor prn- -continue to monitor and adjust the regimen as needed. 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 Will need EUS however per GI can be done as an outpatient. They have signed off. Appreciate assistance. - on po Protonix - Oncology following. Discussed w oncology team, Pt will need XRT simulation which is scheduled for today. He will need weekly Erbitux and XRT outpatient. To verify placement, call that following. - Status post surgical resection for L parotid SCC. plan for chemo and radiation per oncology. //Anemia Hb now stable at 8.5, s/p 1unit PRBC. Per heme/onc recs, transfuse if Hb<8. Monitor H&H. //Diabetes //Hypothyroidism - Electrolyte replacement per protocol - SSI ( medium scale) and Levemir 6 units BID for glycemic control. Monitor BS closely. Will not adjust levemir dose too much for now as I'm tapering off the steroids. adjust as needed. - Continue thyroid supplementation //PROPH: - Bilateral lower extremity SCDs. - Lovenox/Protonix Discharge Planning Cleared by GS, awaiting clearance from oncology. Needs placement, will also need weekly chemotherapy and radiotherapy. GI has signed off. Vinny Dorsey MD Dec 18, 2016 17:24
[2016-12-18] MEDS ORDERED: DILTIAZEM HCL 25 MG/5 ML VIAL IV ONE (19:30)
[2016-12-18] MEDS ORDERED: DILTIAZEM HCL 30 MG TAB PO ONE (19:30)
[2016-12-18] MEDS ORDERED: ALTEPLASE RECOMBINANT 2 MG VIAL IV FLUSH SCH (19:45)
[2016-12-18] MEDS: ATORVASTATIN 40 MG TAB PO SCH (20:51)
[2016-12-18] MEDS: LORazepam 0.5 MG TAB PO PRN (20:51)
[2016-12-18 21:04] LABS: AUTOMATED NEUTROPHIL # 4.2 TH/MM3 (1.8-7.7); BASOPHIL % 0.5 % (0.0-2.0); EOSINOPHIL % 0.6 % (0.0-4.0); HEMATOCRIT 25.6 % (39.0-51.0); HEMO FLAGS DIFF FINAL; LYMPH % 11.6 % (9.0-44.0); LYMPHOCYTE # 0.6 TH/MM3 (1.0-4.8); MEAN CORPUSCULAR HEMOGLOBIN 28.3 PG (27.0-34.0); MEAN CORPUSCULAR HGB CONC 32.9 % (32.0-36.0); MONO % 7.7 % (0.0-8.0); NEUT % 79.6 % (16.0-70.0); PLATELET COUNT 153 TH/MM3 (150-450); RED BLOOD COUNT 2.98 MIL/MM3 (4.50-5.90); WHITE BLOOD COUNT 5.3 TH/MM3 (4.0-11.0)
[2016-12-18 21:23] LABS: POTASSIUM 4.2 MEQ/L (3.5-5.1)
[2016-12-18] MEDS: DILTIAZEM HCL 90 MG TAB PO SCH (23:07)
[2016-12-19] VITALS (27 sets, daily range): BP systolic 103–128; BP diastolic 66–83; PULSE 72–142; RESP 18–22; TEMP 97.2–98.2; O2SAT 95–100
[2016-12-19] MEDS: METOPROLOL TARTRATE 5 MG/5 ML VIAL IV PUSH PRN (01:42)
[2016-12-19] MEDS: ceFAZolin 2 GM PREMIX 50 ML IV SCH ×3 (01:59→17:19)
[2016-12-19] MEDS: LORazepam 2 MG/ML VIAL IV PUSH PRN (01:59)
[2016-12-19] MEDS: DILTIAZEM HCL 90 MG TAB PO SCH ×4 (04:05→22:32)
[2016-12-19 04:42] LABS: AUTOMATED NEUTROPHIL # 4.4 TH/MM3 (1.8-7.7); BASOPHIL % 0.5 % (0.0-2.0); EOSINOPHIL # 0.1 TH/MM3 (0-0.4); EOSINOPHIL % 1.3 % (0.0-4.0); HEMATOCRIT 25.6 % (39.0-51.0); LYMPHOCYTE # 0.9 TH/MM3 (1.0-4.8); MEAN CELL VOLUME 86.7 FL (80.0-100.0); MEAN CORPUSCULAR HEMOGLOBIN 28.5 PG (27.0-34.0); MEAN CORPUSCULAR HGB CONC 32.9 % (32.0-36.0); MONO % 8.7 % (0.0-8.0); NEUT % 73.5 % (16.0-70.0); PLATELET COUNT 151 TH/MM3 (150-450); RED BLOOD COUNT 2.95 MIL/MM3 (4.50-5.90); RED CELL DISTRIBUTION WIDTH 20.4 % (11.6-17.2); WHITE BLOOD COUNT 5.9 TH/MM3 (4.0-11.0)
[2016-12-19] MEDS: INSULIN ASPART SUPPLEMENTAL SCALE SQ SCH ×4 (04:46→21:00)
[2016-12-19 05:15] LABS: BICARBONATE 29.8 MEQ/L (21.0-32.0); MAGNESIUM 1.5 MG/DL (1.5-2.5); POTASSIUM 3.9 MEQ/L (3.5-5.1)
[2016-12-19] MEDS ORDERED: METOPROLOL TARTRATE 5 MG/5 ML VIAL IV PUSH ONE (05:30)
[2016-12-19 05:37] LABS: HEMO FLAGS AUTO DIFF
[2016-12-19 05:39] LABS: HELMET CELLS OCC (NORMAL); OVALOCYTES 1+ (NORMAL); PLATELET MORPHOLOGY NORMAL (NORMAL); SCAN/DIFF AUTO DIFF CONFIRMED
[2016-12-19 05:40] LABS: PLATELET ESTIMATE SMEAR NORMAL (NORMAL)
[2016-12-19] MEDS: CHLORHEXIDINE 0.12% (ORAL KIT) 15 ML CUP MT SCH ×2 (08:00→20:00)
[2016-12-19] MEDS: DOCUSATE SODIUM 50 MG/SENNA 8.6 MG TAB PO SCH ×2 (08:29→21:00)
[2016-12-19] MEDS: METOPROLOL TARTRATE 50 MG TAB PO SCH ×2 (08:29→21:15)
[2016-12-19] MEDS: CLOPIDOGREL 75 MG TAB PO SCH (08:29)
[2016-12-19] MEDS: THIAMINE HCL 100 MG TAB PO SCH (08:29)
[2016-12-19] MEDS: FOLIC ACID 1 MG TAB PO SCH (08:29)
[2016-12-19] MEDS: PANTOPRAZOLE SOD 40 MG DELAYED RELEASE TAB PO SCH ×2 (08:29→21:15)
[2016-12-19] MEDS: predniSONE 20 MG TAB PO SCH (08:29)
[2016-12-19] MEDS: MULTIVITAMIN TAB PO SCH (08:29)
[2016-12-19] MEDS: LORazepam 0.5 MG TAB PO PRN (08:29)
[2016-12-19] MEDS: RIFAMPIN 150 MG CAP PO SCH ×2 (08:30→21:15)
[2016-12-19] MEDS: ASPIRIN 81 MG CHEW TAB PO SCH (08:30)
[2016-12-19] MEDS: ENOXAPARIN SODIUM 40 MG/0.4 ML SYRINGE SQ SCH (08:33)
[2016-12-19] MEDS: SODIUM CHLORIDE 0.9% FLUSH 10 ML FLUSH IV FLUSH SCH ×3 (08:34→21:00)
[2016-12-19] MEDS: INSULIN DETEMIR 100 UNITS/ML VIAL SQ SCH ×2 (08:40→21:00)
[2016-12-19] MEDS: POLYETHYLENE GLYCOL 17 GM PKG PO SCH (11:34)
--- NOTE | 2016-12-19 13:40 | PD.ONC.PN ---
Subjective Subjective Remarks Underwent radiation simulation this morning. Vomited this afternoon. Was unable to finish lunch. Denies pain. No nausea at present. Objective Data Date Time Temp Pulse Resp B/P Pulse Ox O2 Delivery O2 Flow Rate FiO2 12/19/16 13:00 122 12/19/16 12:00 130 12/19/16 12:00 98.2 136 18 120/79 99 12/19/16 11:00 134 12/19/16 10:15 99 Nasal Cannula 2.00 12/19/16 10:00 136 12/19/16 09:00 120 12/19/16 08:00 139 12/19/16 08:00 99 Nasal Cannula 3.00 12/19/16 07:32 98.1 139 20 123/77 99 12/19/16 07:00 138 12/19/16 05:00 138 12/19/16 04:00 136 12/19/16 04:00 97.2 139 20 128/83 100 12/19/16 03:00 138 12/19/16 02:00 140 12/19/16 01:00 140 12/19/16 00:00 123 12/19/16 00:00 Nasal Cannula 2.00 12/19/16 00:00 97.7 123 20 121/77 99 12/18/16 23:00 116 12/18/16 22:00 120 12/18/16 21:00 140 12/18/16 20:00 143 12/18/16 20:00 Nasal Cannula 2.00 12/18/16 20:00 97.6 137 18 140/74 95 12/18/16 19:00 146 12/18/16 18:00 140 12/18/16 17:16 96 Nasal Cannula 2.00 12/18/16 17:00 78 12/18/16 16:52 85 12/18/16 16:00 82 12/18/16 16:00 98.1 86 16 147/79 96 12/18/16 15:00 80 12/19/16 12/19/16 12/19/16 07:00 15:00 23:00 Intake Total 670 ml Output Total 1400 ml Balance -730 ml Result Diagram: 12/19/16 0410 12/19/16 0410 Laboratory Results Laboratory Tests Test 12/18/16 12/19/16 20:25 04:10 White Blood Count 5.3 TH/MM3 5.9 TH/MM3 Red Blood Count 2.98 MIL/MM3 2.95 MIL/MM3 Hemoglobin 8.4 GM/DL 8.4 GM/DL Hematocrit 25.6 % 25.6 % Mean Corpuscular Volume 86.0 FL 86.7 FL Mean Corpuscular Hemoglobin 28.3 PG 28.5 PG Mean Corpuscular Hemoglobin 32.9 % 32.9 % Concent Red Cell Distribution Width 20.0 % 20.4 % Platelet Count 153 TH/MM3 151 TH/MM3 Mean Platelet Volume 9.3 FL 8.9 FL Neutrophils (%) (Auto) 79.6 % 73.5 % Lymphocytes (%) (Auto) 11.6 % 16.0 % Monocytes (%) (Auto) 7.7 % 8.7 % Eosinophils (%) (Auto) 0.6 % 1.3 % Basophils (%) (Auto) 0.5 % 0.5 % Neutrophils # (Auto) 4.2 TH/MM3 4.4 TH/MM3 Lymphocytes # (Auto) 0.6 TH/MM3 0.9 TH/MM3 Monocytes # (Auto) 0.4 TH/MM3 0.5 TH/MM3 Eosinophils # (Auto) 0.0 TH/MM3 0.1 TH/MM3 Basophils # (Auto) 0.0 TH/MM3 0.0 TH/MM3 CBC Comment DIFF FINAL AUTO DIFF Differential Comment AUTO DIFF CONFIRMED Sodium Level 132 MEQ/L 134 MEQ/L Potassium Level 4.2 MEQ/L 3.9 MEQ/L Chloride Level 98 MEQ/L 99 MEQ/L Carbon Dioxide Level 27.0 MEQ/L 29.8 MEQ/L Anion Gap 7 MEQ/L 5 MEQ/L Blood Urea Nitrogen 14 MG/DL 13 MG/DL Creatinine 0.72 MG/DL 0.57 MG/DL Estimat Glomerular Filtration 112 ML/MIN 146 ML/MIN Rate Random Glucose 243 MG/DL 109 MG/DL Calcium Level 7.9 MG/DL 7.7 MG/DL Platelet Estimate NORMAL Platelet Morphology Comment NORMAL Ovalocytes 1+ Helmet Cells OCC Phosphorus Level 3.0 MG/DL Magnesium Level 1.5 MG/DL Albumin 1.9 GM/DL Administered Medications Medications (Trade) Dose Ordered Sig/Geovanny Route PRN Reason Start Time Stop Time Status Last Admin Dose Admin Sodium Chloride (NS Flush) 2 ml UNSCH PRN IV FLUSH FLUSH AFTER USING IV ACCESS 11/30/16 02:45 12/01/16 21:53 Sodium Chloride (NS Flush) 2 ml BID IV FLUSH 11/30/16 09:00 12/18/16 20:52 Oxycodone HCl (Roxicodone) 5 mg Q4H PRN PO PAIN SCALE 3 TO 5 11/30/16 02:45 12/17/16 15:47 Senna/Docusate Sodium (Rere-Colace) 1 tab BID PO 11/30/16 09:00 12/19/16 08:29 Acetaminophen (Tylenol) 325 mg Q4H PRN PO PAIN SCALE 1 TO 2 11/30/16 13:45 12/13/16 17:13 Aspirin (Aspirin Chew) 81 mg DAILY PO 11/30/16 13:45 12/19/16 08:30 Clopidogrel Bisulfate (Plavix) 75 mg DAILY PO 12/01/16 09:00 12/19/16 08:29 Ondansetron HCl (Zofran Inj) 4 mg Q4H PRN IV NAUSEA 11/30/16 13:45 12/05/16 22:06 Sodium Chloride (NS Flush) 5 ml Q21D IV FLUSH 11/30/16 18:00 11/30/16 18:00 Heparin Sodium (Porcine) (Heparin Central Flush) 500 units Q21D IV FLUSH 11/30/16 18:00 11/30/16 18:04 Acetaminophen (Tylenol 650 Mg/ 20 ml Liq) 650 mg Q6H PRN PO FEVER 12/01/16 17:30 12/02/16 01:07 Enoxaparin Sodium (Lovenox Inj) 40 mg Q24H SQ 12/02/16 09:00 12/19/16 08:33 Chlorhexidine Gluconate (Peridex 0.12% Liq) 15 ml BID@08,20 MT 12/02/16 08:00 12/15/16 08:00 Metoprolol Tartrate (Lopressor Inj) 2.5 mg Q6H PRN IV PUSH HR >110 12/02/16 08:15 12/19/16 01:42 Polyethylene Glycol (Miralax) 17 gm DAILY PO 12/04/16 09:00 12/19/16 11:34 Thiamine HCl (Vitamin B1) 100 mg DAILY PO 12/05/16 09:00 12/19/16 08:29 Multivitamins (Theragran) 1 tab DAILY PO 12/05/16 09:00 12/19/16 08:29 Folic Acid (Folate) 1 mg DAILY PO 12/05/16 09:00 12/19/16 08:29 Rifampin 300 mg 300 mg Q12HR PO 12/06/16 09:15 01/15/17 23:00 12/19/16 08:30 Cefazolin Sodium/ Dextrose (Ancef 2 Gm Premix) 50 ml @ 100 mls/hr Q8H IV 12/06/16 10:00 01/15/17 23:00 12/19/16 11:34 Lorazepam (Ativan Inj) 1 mg Q4H PRN IV PUSH ANXIETY AND/OR AGITATION 12/09/16 15:15 12/19/16 01:59 Atorvastatin Calcium (Lipitor) 40 mg HS PO 12/12/16 21:00 12/18/16 20:51 Sodium Chloride (NS Flush) See Protocol DAILY IV FLUSH 12/13/16 09:00 12/19/16 08:34 Heparin Sodium (Porcine) (Heparin Central Flush) See Protocol DAILY IV FLUSH 12/13/16 09:00 12/19/16 08:34 Sodium Chloride (NS Flush) UNSCH PRN IV FLUSH SEE PROTOCOL TABLE 12/12/16 17:00 12/19/16 01:59 Pantoprazole Sodium (Protonix) 40 mg Q12HR PO 12/13/16 09:00 12/19/16 08:29 Insulin Detemir (Levemir Inj) 6 units Q12HR SQ 12/14/16 09:00 12/19/16 08:40 Metoprolol Tartrate (Lopressor) 100 mg Q12HR PO 12/14/16 21:00 12/19/16 08:29 Prednisone (Deltasone) 20 mg DAILY PO 12/17/16 09:00 12/19/16 08:29 Oxycodone HCl 10 mg 10 mg Q4H PRN PO PAIN 6-10 12/17/16 19:00 12/19/16 04:36 Diltiazem HCl/ Sodium Chloride (Cardizem Inj/NS Inj) 125 ml @ 0 mls/hr TITRATE IV 12/17/16 21:30 12/17/16 22:12 Lorazepam (Ativan) 0.5 mg DAILY PRN PO ANXIETY 12/18/16 15:45 12/19/16 08:29 Diltiazem HCl (Cardizem) 90 mg Q6H PO 12/18/16 23:00 12/19/16 11:34 Objective Remarks GENERAL: Chronically ill-appearing male sitting up in chair at bedside in no distress SKIN: Warm and dry. HEAD: Normocephalic. EYES: No injection or drainage. NECK: Supple, trachea midline. CARDIOVASCULAR: +S1/S2, RESPIRATORY: anterior ray clear GASTROINTESTINAL: Abdomen soft, non-tender, nondistended. EXTREMITIES: No cyanosis. +LE edema NEUROLOGICAL: awake and alert, normal speech. Assessment/Plan Problem List: (1) Esophageal adenocarcinoma Status: Acute Plan: --we plan to give weekly Erbitux and XRT outpatient. --patient had OP EGD with biopsy, pathology showed adenocarcinoma. --EGD/Colonoscopy, 11/20/16--showed long stricture in the mid esophagus and distal esophagus, multiple biopsies were performed Pathology revealed invasive adenocarcinoma- distal esophagus --XRT simulation done 12/19. (2) SCC (squamous cell carcinoma) Status: Acute Plan: --has a head and neck, lung malignancy which was locally advanced. --received definitive treatment with surgery. Post surgery he had positive margins and some poor risk features and he was about to get concurrent chemotherapy and radiation and adjuvantly to achieve local control of the disease --PET scan to stage his disease prior to treatment showed an esophageal mass (3) Normocytic anemia Status: Acute Plan: --transfuse packed red blood cells if his hemoglobin drops below 8. --s/p iron infusion (4) Sepsis Status: Resolved Plan: BC, 7 no growth BC, 12/07 no growth --BC, 12/05 +, S. Aureus --had removal of port, + S. aureus --on Ancef (5) NSTEMI (non-ST elevated myocardial infarction) Status: Acute Plan: --had elevated troponin and ST-segment changes consistent with acute MS. 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 Plan 1. monitor CBC 2. supportive care 3. plan to give Erbitux/XRT outpatient Attending Statement The exam, history, and the medical decision-making described in the above note were completed with the assistance of the mid-level provider. I reviewed and agree with the findings presented. I attest that I had a [id number] encounter with the patient on the same day, and personally performed and documented my assessment and findings in the medical record. Problem Qualifiers (1) Sepsis: Qualified Code: A41.9 - Sepsis, due to unspecified organism Perla Duran Dec 19, 2016 13:40 Brant Bell MD Dec 20, 2016 00:22
--- NOTE | 2016-12-19 15:29 | HHI.IDPN ---
Subjective Subjective Remarks Patient is a 61-year-old male, currently lethargic, and unable to give any history. History has been obtained from the chart. 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 It was reportedly malignant as well. He presented to the hospital complaining of generalized weakness, abdominal pain and progressive swallowing difficulty over the last 3 weeks. Evaluation in the emergency room revealed abnormal EKG, and he underwent cardiac catheterization. He had non-ST AL, and had revascularization with stent placement of his left circumflex artery. Patient is spiked to 103, and there were 2 blood cultures done yesterday that are now reported as growing staph aureus. Patient currently has a Saxena catheter. There is a lot of sediment in his urine, and his urine culture is also showing staph aureus. CT of the abdomen and pelvis did not show any abnormality except the soft tissue mass in the esophagus. He had atherosclerosis of his vasculature. There was also evidence of possible liver cirrhosis. Patient is being evaluated for chemotherapy and radiation, but he has not been started. He had an Zkyxap-l-Ibil placement on November 12 on his right upper chest. Notes reviewed Temps ok On nasal O2 Had radiation simulation today Last (+) BC 12/05 Port removed 12/02 Antibiotics Ancef/rifampin Levaquin - to finish 12/13 Lines Port - removed 12/02 PICC Past Medical History Hypertension Hyperlipidemia CAD Diabetes 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 and he had good margins Recurrent squamous cell carcinoma on the left face, with involvement of the parotid gland, status post surgery at [facility] Recently found to have esophageal mass Past Surgical History Appendectomy Liver Biopsy Resection of a squamous cell carcinoma on the left cheek in 2011 Extensive surgery on the left face and neck for recurrent squamous cell carcinoma Port Placement November 12, 2016 Allergies: Coded Allergies: Penicillin (Verified Allergy, Mild, Hives, 11/12/16) Objective . Vital Signs Date Time Temp Pulse Resp B/P Pulse Ox O2 Delivery O2 Flow Rate FiO2 12/19/16 13:00 122 12/19/16 12:00 130 12/19/16 12:00 98.2 136 18 120/79 99 12/19/16 11:00 134 12/19/16 10:15 99 Nasal Cannula 2.00 12/19/16 10:00 136 12/19/16 09:00 120 12/19/16 08:00 139 12/19/16 08:00 99 Nasal Cannula 3.00 12/19/16 07:32 98.1 139 20 123/77 99 12/19/16 07:00 138 12/19/16 05:00 138 12/19/16 04:00 136 12/19/16 04:00 97.2 139 20 128/83 100 12/19/16 03:00 138 12/19/16 02:00 140 12/19/16 01:00 140 12/19/16 00:00 123 12/19/16 00:00 Nasal Cannula 2.00 12/19/16 00:00 97.7 123 20 121/77 99 12/18/16 23:00 116 12/18/16 22:00 120 12/18/16 21:00 140 12/18/16 20:00 143 12/18/16 20:00 Nasal Cannula 2.00 12/18/16 20:00 97.6 137 18 140/74 95 12/18/16 19:00 146 12/18/16 18:00 140 12/18/16 17:16 96 Nasal Cannula 2.00 12/18/16 17:00 78 12/18/16 16:52 85 12/18/16 16:00 82 12/18/16 16:00 98.1 86 16 147/79 96 12/18/16 12/18/16 12/19/16 15:00 23:00 07:00 Intake Total 1020 ml 670 ml Output Total 1400 ml Balance 1020 ml -730 ml Intake Oral 720 ml 620 ml IV Total 300 ml 50 ml Output Urine Total 1400 ml # Voids 4 # Bowel Movements 1 0 . Laboratory Tests Test 12/18/16 12/19/16 20:25 04:10 White Blood Count 5.3 TH/MM3 5.9 TH/MM3 Red Blood Count 2.98 MIL/MM3 2.95 MIL/MM3 Hemoglobin 8.4 GM/DL 8.4 GM/DL Hematocrit 25.6 % 25.6 % Mean Corpuscular Volume 86.0 FL 86.7 FL Mean Corpuscular Hemoglobin 28.3 PG 28.5 PG Mean Corpuscular Hemoglobin 32.9 % 32.9 % Concent Red Cell Distribution Width 20.0 % 20.4 % Platelet Count 153 TH/MM3 151 TH/MM3 Mean Platelet Volume 9.3 FL 8.9 FL Neutrophils (%) (Auto) 79.6 % 73.5 % Lymphocytes (%) (Auto) 11.6 % 16.0 % Monocytes (%) (Auto) 7.7 % 8.7 % Eosinophils (%) (Auto) 0.6 % 1.3 % Basophils (%) (Auto) 0.5 % 0.5 % Neutrophils # (Auto) 4.2 TH/MM3 4.4 TH/MM3 Lymphocytes # (Auto) 0.6 TH/MM3 0.9 TH/MM3 Monocytes # (Auto) 0.4 TH/MM3 0.5 TH/MM3 Eosinophils # (Auto) 0.0 TH/MM3 0.1 TH/MM3 Basophils # (Auto) 0.0 TH/MM3 0.0 TH/MM3 CBC Comment DIFF FINAL AUTO DIFF Differential Comment AUTO DIFF CONFIRMED Platelet Estimate NORMAL Platelet Morphology Comment NORMAL Ovalocytes 1+ Helmet Cells OCC Laboratory Tests Test 12/18/16 12/19/16 20:25 04:10 Sodium Level 132 MEQ/L 134 MEQ/L Potassium Level 4.2 MEQ/L 3.9 MEQ/L Chloride Level 98 MEQ/L 99 MEQ/L Carbon Dioxide Level 27.0 MEQ/L 29.8 MEQ/L Anion Gap 7 MEQ/L 5 MEQ/L Blood Urea Nitrogen 14 MG/DL 13 MG/DL Creatinine 0.72 MG/DL 0.57 MG/DL Estimat Glomerular Filtration 112 ML/MIN 146 ML/MIN Rate Random Glucose 243 MG/DL 109 MG/DL Calcium Level 7.9 MG/DL 7.7 MG/DL Phosphorus Level 3.0 MG/DL Magnesium Level 1.5 MG/DL Albumin 1.9 GM/DL Imaging Chest X-Ray 12/05/16 0600 Signed Impressions: Service Date/Time: Monday, December 05, 2016 03:30 - CONCLUSION: 1. Cardiomegaly and findings of vascular congestion without overt failure. There has been no significant change when compared to the prior exam. Bobby Matias MD Head CT 12/01/16 0000 Signed Impressions: Service Date/Time: Thursday, December 01, 2016 07:59 - CONCLUSION: 1. Questionable area of low attenuation left temporal lobe could be artifact versus less likely infarct. MRI may be warranted based on clinical history. 2. No midline shift or mass effect. 3. No intraparenchymal hemorrhage. Jagjit Tapia MD Brain MRI 12/01/16 0000 Signed Impressions: Service Date/Time: Thursday, December 01, 2016 12:07 - CONCLUSION: Normal examination. Barrett Rodriguez MD Abdomen X-Ray 12/01/16 0000 Signed Impressions: Service Date/Time: Thursday, December 01, 2016 16:48 - CONCLUSION: No evidence of obstruction. Feeding tube tip in the distal stomach. Barrett Rodriguez MD Abdomen/Pelvis CT 11/29/16 2356 Signed Impressions: Service Date/Time: Wednesday, November 30, 2016 01:35 - CONCLUSION: 1. Markedly abnormal appearance of the distal esophagus consistent with the history of esophageal carcinoma. 2. Atherosclerotic calcifications of the aorta and iliac vessels. 3. Cirrhotic appearance to the liver with a mildly nodular contour present. Erik Simon MD CT Angiography 11/29/16 2348 Signed Impressions: Service Date/Time: Wednesday, November 30, 2016 01:35 - CONCLUSION: 1. No evidence for pulmonary embolism or pneumonia. 2. Abnormal appearance of the esophagus with and soft tissue consistent with the history of carcinoma. Erik Simon MD Chest X-Ray 12/03/16 0600 Signed Impressions: Service Date/Time: Saturday, December 03, 2016 04:43 - CONCLUSION: Increasing consolidation in the left lower lung. Bilateral interstitial changes. Niko Wilcox MD Chest X-Ray 12/03/16 0000 Signed Impressions: Service Date/Time: Saturday, December 03, 2016 07:48 - CONCLUSION: 1. Persistent left retrocardiac density and slight interstitial prominence. Jagjit Tapia MD Chest X-Ray 12/02/16 0000 Signed Impressions: Service Date/Time: Friday, December 02, 2016 15:55 - CONCLUSION: Normal examination with endotracheal tube and central lines in good position. Barrett Rodriguez MD Chest X-Ray 12/02/16 0000 Signed Impressions: Service Date/Time: Friday, December 02, 2016 08:24 - CONCLUSION: Mild perihilar vascular congestion. Endotracheal tube is in good position Barrett Rodriguez MD Chest X-Ray 12/02/16 0000 Signed Impressions: Service Date/Time: Friday, December 02, 2016 06:53 - CONCLUSION: Underinflated examination with atelectasis at the lung bases. Given the technique, no acute abnormality or significant interval change is appreciated. Washington Marroquin MD Physical Exam GENERAL: Awake, alert, not in distress SKIN: Warm and dry. No generalized rash EYES: Extraocular movements full and intact. [place]. No scleral icterus. No injection or drainage. EARS, NOSE AND THROAT: Nose without bleeding or purulent nasal discharge. No sinus tenderness. Orally intubated NECK: Trachea midline. Supple and not tender, no meningeal signs CARDIOVASCULAR: Regular rate and rhythm. No murmurs, rubs or gallops heard. RESPIRATORY: Coarse BS bilaterally. Previous port with intact dressing, open incision, dry ABDOMEN: Soft, not distended, not tender. Bowel sounds present and normoactive. No organomegaly. EXTREMITIES: No clubbing, cyanosis. Has mild pedal edema. No calf tenderness. Well perfused and warm. NEUROLOGICAL: Awake, non-focal PSYCHIATRIC: calm and cooperative LINE: Dry dressing on previous port site BACK: Decubitus in sacral getting dryer : Saxena in place Assessment & Plan Remarks IMPRESSION Sepsis, with shock has MSSA due to port infection, better - S/P removal port 12/02 - last (+) BC 12/05 Respiratory failure, better - has L base infiltrate, and GNR in sputum - S/P Rx 12/13 (+) UC with Staph aureus, due to current bacteremia Recurrent squamous cell CA Esophageal CA Lethargy and SOB due to sepsis, resolved - has acidosis, resolved Renal insufficiency, due to sepsis and shock, better Confusion - ?meds - better Atrial fib, rate still goes up and down RECOMMENDATION Continue Rifampin, for synergy vs MSSA - follow LFT Continue IV Ancef He will need 6 weeks IV Abx - anticipated end date Jan 15 (6 weeks from last +BC) Labs weekly while on Abx: CBC, creatinine and LFT - will have HEPAS order and monitor - call if abnormal and with questions Monitor for allergic reaction He is doing well from ID standpoint and can look into D/C I will be available prn Please call if aptient close to D/C so I can fill out the antibiotic infusion form D/W Carola De Luna MD Dec 19, 2016 15:29
[2016-12-19] MEDS ORDERED: DIGOXIN 0.5 MG/2 ML VIAL IVS STA (16:51)
--- NOTE | 2016-12-19 17:36 | HHI.PR ---
Subjective Remarks Patient seen this afternoon around 2 PM. He reports nausea and nonbloody vomiting following lunch. Denies any chest pain. Objective Vital Signs Date Time Temp Pulse Resp B/P Pulse Ox O2 Delivery O2 Flow Rate FiO2 12/19/16 16:00 126 12/19/16 15:00 98.0 130 18 110/74 98 12/19/16 15:00 140 12/19/16 14:00 130 12/19/16 13:00 122 12/19/16 12:00 130 12/19/16 12:00 98.2 136 18 120/79 99 12/19/16 11:00 134 12/19/16 10:15 99 Nasal Cannula 2.00 12/19/16 10:00 136 12/19/16 09:00 120 12/19/16 08:00 139 12/19/16 08:00 99 Nasal Cannula 3.00 12/19/16 07:32 98.1 139 20 123/77 99 12/19/16 07:00 138 12/19/16 05:00 138 12/19/16 04:00 136 12/19/16 04:00 97.2 139 20 128/83 100 12/19/16 03:00 138 12/19/16 02:00 140 12/19/16 01:00 140 12/19/16 00:00 123 12/19/16 00:00 Nasal Cannula 2.00 12/19/16 00:00 97.7 123 20 121/77 99 12/18/16 23:00 116 12/18/16 22:00 120 12/18/16 21:00 140 12/18/16 20:00 143 12/18/16 20:00 Nasal Cannula 2.00 12/18/16 20:00 97.6 137 18 140/74 95 12/18/16 19:00 146 12/18/16 18:00 140 I/O 12/18/16 12/18/16 12/18/16 12/19/16 12/19/16 12/19/16 07:00 15:00 23:00 07:00 15:00 23:00 Intake Total 1020 ml 670 ml Output Total 1400 ml Balance 1020 ml -730 ml Intake Oral 720 ml 620 ml IV Total 300 ml 50 ml Output Urine Total 1400 ml # Voids 4 # Bowel Movements 1 0 Result Diagram: 12/19/1640912/19/16409 Objective Remarks GENERAL: lying in bed. Appears comfortable. Alert and oriented 3. SKIN: Warm and dry. HEAD: Normocephalic. EYES: No scleral icterus. No injection or drainage. NECK: Supple, trachea midline. No JVD. CARDIOVASCULAR: Regular rate and rhythm without murmurs, gallops, or rubs. RESPIRATORY: Breath sounds equal bilaterally. No accessory muscle use. GASTROINTESTINAL: Abdomen soft, non-tender, nondistended. MUSCULOSKELETAL: No cyanosis. 2+ bilateral lower extremity edema. BACK: Nontender without obvious deformity. No CVA tenderness. A/P Assessment and Plan =====12/19/16===== //Atrial fibrillation with RVR. Heart rate up into the 130s. Digoxin load. Continue diltiazem and metoprolol. //Nausea and vomiting. Patient with esophageal thickening on MRI. Will order barium swallow. Switch diet to pured. //Fluid overload. Bilateral lower extremity edema. Likely secondary to anasarca. Albumin 1.9. We'll give small amount of diuretics today. Monitor. //Patient undergoing planning for XRT. Case management trying to find a SNF which will be able to take him to radiation therapy. 61-year-old male with a medical history significant for left parotid gland squamous cell cancer initially admitted for intractable abdominal pain, lactic acidemia and other nonspecific complaints. The patient was found to have and NSTEMI and later found to be septic. He went into septic shock secondary to MSSA bacteremia from Xldbql-k-Clpo infection. Patient is status post ICU course including intubation and extubation. He is status post port removal. He is hemodynamically stable //Septic shock-resolved //MSSA bacteremia //Rccbtq-o-Adqs infection - s/p removal of Ftjxwz-x-Bfgt by GS. Dressing changes per GS. Appreciate assistance. - Catheter tip culture blood culture and wound culture also positive for MSSA - Continue abx per ID, on IV Ancef, po Rifampin x 6 weeks from port removal and (completed course of Levaquin PO on 12/13). LFTs 12/15/16 wnl, continue antibiotics/Ancef until 01/15/17. //Acute metabolic encephalopathy //Agitation - Encephalopathy most likely secondary to severe sepsis - Continue Thiamine, MVI, folic acid, resolved //Acute hypoxemic respiratory failure //Acute COPD exacerbation //Tobacco abuse - Emergently intubated and placed on mechanical ventilation 12/02/16, extubated successfully 12/03/16 - Continue with oxygen keep sat >92% - continue neb treatment - s/p IV Solu-Medrol and now started on po prednisone 40mg daily today, continue to taper, switch to 20mg po daily 12/17/16. Continue for another 3 days , then stop //NSTEMI //atrial fibrillation - s/p PCI to LCx by Dr. Krause on 11/30/16 - Continue ASA/Plavix/metoprolol,cardizem and statin. Metoprolol was increased to 100 mg twice a day for better heart rate control. -IV lopressor prn- -continue to monitor and adjust the regimen as needed. 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 Will need EUS however per GI can be done as an outpatient. They have signed off. Appreciate assistance. - on po Protonix - Oncology following. Discussed w oncology team, Pt will need XRT simulation which is scheduled for today. He will need weekly Erbitux and XRT outpatient. To verify placement, call that following. - Status post surgical resection for L parotid SCC. plan for chemo and radiation per oncology. //Anemia Hb now stable at 8.5, s/p 1unit PRBC. Per heme/onc recs, transfuse if Hb<8. Monitor H&H. //Diabetes //Hypothyroidism - Electrolyte replacement per protocol - SSI ( medium scale) and Levemir 6 units BID for glycemic control. Monitor BS closely. Will not adjust levemir dose too much for now as I'm tapering off the steroids. adjust as needed. - Continue thyroid supplementation //PROPH: - Bilateral lower extremity SCDs. - Lovenox/Protonix Discharge Planning Cleared by GS, awaiting clearance from oncology. Needs placement, will also need weekly chemotherapy and radiotherapy. GI has signed off. Vinny Dorsey MD Dec 19, 2016 17:36
[2016-12-19] MEDS ORDERED: FUROSEMIDE 20 MG/2 ML VIAL IV PUSH ONE (17:45)
[2016-12-19] MEDS ORDERED: POTASSIUM CHLORIDE 25 MEQ EFFERVESCENT TAB PO ONE (17:45)
[2016-12-19] MEDS ORDERED: DILTIAZEM HCL 25 MG/5 ML VIAL IV ONE (18:15)
[2016-12-19] MEDS: DILTIAZEM 125 MG/NS 100 ML IV SCH ×2 (19:30)
[2016-12-19] MEDS: ATORVASTATIN 40 MG TAB PO SCH (21:14)
[2016-12-19] MEDS: DIGOXIN 0.5 MG/2 ML VIAL IVS SCH (22:34)
[2016-12-20] VITALS (30 sets, daily range): BP systolic 104–120; BP diastolic 62–73; PULSE 72–146; RESP 15–20; TEMP 97.6–98.4; O2SAT 96–100
[2016-12-20] MEDS: ceFAZolin 2 GM PREMIX 50 ML IV SCH ×3 (01:16→17:22)
[2016-12-20] MEDS: METOPROLOL TARTRATE 5 MG/5 ML VIAL IV PUSH PRN ×2 (02:51→18:38)
[2016-12-20] MEDS: DIGOXIN 0.5 MG/2 ML VIAL IVS SCH (03:54)
[2016-12-20] MEDS: DILTIAZEM HCL 90 MG TAB PO SCH ×4 (03:54→22:47)
[2016-12-20 05:55] LABS: AUTOMATED NEUTROPHIL # 3.4 TH/MM3 (1.8-7.7); BASOPHIL % 0.5 % (0.0-2.0); EOSINOPHIL # 0.1 TH/MM3 (0-0.4); EOSINOPHIL % 1.5 % (0.0-4.0); HEMATOCRIT 25.6 % (39.0-51.0); HEMO FLAGS DIFF FINAL; LYMPH % 18.6 % (9.0-44.0); LYMPHOCYTE # 0.9 TH/MM3 (1.0-4.8); MEAN CELL VOLUME 85.6 FL (80.0-100.0); MEAN CORPUSCULAR HEMOGLOBIN 28.4 PG (27.0-34.0); MEAN CORPUSCULAR HGB CONC 33.1 % (32.0-36.0); MONO % 10.7 % (0.0-8.0); NEUT % 68.7 % (16.0-70.0); PLATELET COUNT 155 TH/MM3 (150-450); RED BLOOD COUNT 2.99 MIL/MM3 (4.50-5.90); RED CELL DISTRIBUTION WIDTH 20.5 % (11.6-17.2); WHITE BLOOD COUNT 4.9 TH/MM3 (4.0-11.0)
[2016-12-20 06:08] LABS: MAGNESIUM 1.5 MG/DL (1.5-2.5); POTASSIUM 4.1 MEQ/L (3.5-5.1)
[2016-12-20] MEDS: INSULIN ASPART SUPPLEMENTAL SCALE SQ SCH ×4 (06:09→20:49)
[2016-12-20] MEDS: DILTIAZEM 125 MG/NS 100 ML IV SCH ×4 (06:28→16:40)
[2016-12-20] MEDS: CHLORHEXIDINE 0.12% (ORAL KIT) 15 ML CUP MT SCH ×2 (08:00→20:00)
--- NOTE | 2016-12-20 08:54 | PD.CARD.PN ---
Subjective Subjective Remarks Asked to see pt for elevated AFIB rates, pt asymptomatic. Objective Medications Administered Medications Medications (Trade) Dose Ordered Sig/Geovanny Route PRN Reason Start Time Stop Time Status Last Admin Dose Admin Sodium Chloride (NS Flush) 2 ml UNSCH PRN IV FLUSH FLUSH AFTER USING IV ACCESS 11/30/16 02:45 12/01/16 21:53 Sodium Chloride (NS Flush) 2 ml BID IV FLUSH 11/30/16 09:00 12/18/16 20:52 Oxycodone HCl (Roxicodone) 5 mg Q4H PRN PO PAIN SCALE 3 TO 5 11/30/16 02:45 12/17/16 15:47 Senna/Docusate Sodium (Rere-Colace) 1 tab BID PO 11/30/16 09:00 12/19/16 08:29 Acetaminophen (Tylenol) 325 mg Q4H PRN PO PAIN SCALE 1 TO 2 11/30/16 13:45 12/13/16 17:13 Aspirin (Aspirin Chew) 81 mg DAILY PO 11/30/16 13:45 12/19/16 08:30 Clopidogrel Bisulfate (Plavix) 75 mg DAILY PO 12/01/16 09:00 12/19/16 08:29 Ondansetron HCl (Zofran Inj) 4 mg Q4H PRN IV NAUSEA 11/30/16 13:45 12/05/16 22:06 Sodium Chloride (NS Flush) 5 ml Q21D IV FLUSH 11/30/16 18:00 11/30/16 18:00 Heparin Sodium (Porcine) (Heparin Central Flush) 500 units Q21D IV FLUSH 11/30/16 18:00 11/30/16 18:04 Acetaminophen (Tylenol 650 Mg/ 20 ml Liq) 650 mg Q6H PRN PO FEVER 12/01/16 17:30 12/02/16 01:07 Enoxaparin Sodium (Lovenox Inj) 40 mg Q24H SQ 12/02/16 09:00 12/19/16 08:33 Chlorhexidine Gluconate (Peridex 0.12% Liq) 15 ml BID@08,20 MT 12/02/16 08:00 12/15/16 08:00 Metoprolol Tartrate (Lopressor Inj) 2.5 mg Q6H PRN IV PUSH HR >110 12/02/16 08:15 12/20/16 02:51 Polyethylene Glycol (Miralax) 17 gm DAILY PO 12/04/16 09:00 12/19/16 11:34 Thiamine HCl (Vitamin B1) 100 mg DAILY PO 12/05/16 09:00 12/19/16 08:29 Multivitamins (Theragran) 1 tab DAILY PO 12/05/16 09:00 12/19/16 08:29 Folic Acid (Folate) 1 mg DAILY PO 12/05/16 09:00 12/19/16 08:29 Rifampin 300 mg 300 mg Q12HR PO 12/06/16 09:15 01/15/17 23:00 12/19/16 21:15 Cefazolin Sodium/ Dextrose (Ancef 2 Gm Premix) 50 ml @ 100 mls/hr Q8H IV 12/06/16 10:00 01/15/17 23:00 12/20/16 01:16 Lorazepam (Ativan Inj) 1 mg Q4H PRN IV PUSH ANXIETY AND/OR AGITATION 12/09/16 15:15 12/19/16 01:59 Atorvastatin Calcium (Lipitor) 40 mg HS PO 12/12/16 21:00 12/19/16 21:14 Sodium Chloride (NS Flush) See Protocol DAILY IV FLUSH 12/13/16 09:00 12/19/16 08:34 Heparin Sodium (Porcine) (Heparin Central Flush) See Protocol DAILY IV FLUSH 12/13/16 09:00 12/19/16 08:34 Sodium Chloride (NS Flush) UNSCH PRN IV FLUSH SEE PROTOCOL TABLE 12/12/16 17:00 12/19/16 01:59 Pantoprazole Sodium (Protonix) 40 mg Q12HR PO 12/13/16 09:00 12/19/16 21:15 Insulin Detemir (Levemir Inj) 6 units Q12HR SQ 12/14/16 09:00 12/19/16 21:00 Metoprolol Tartrate (Lopressor) 100 mg Q12HR PO 12/14/16 21:00 12/19/16 21:15 Prednisone (Deltasone) 20 mg DAILY PO 12/17/16 09:00 12/19/16 08:29 Oxycodone HCl (Roxicodone) 10 mg Q4H PRN PO PAIN 6-10 12/17/16 19:00 12/20/16 05:22 Lorazepam (Ativan) 0.5 mg DAILY PRN PO ANXIETY 12/18/16 15:45 12/19/16 08:29 Diltiazem HCl 90 mg 90 mg Q6H PO 12/18/16 23:00 12/20/16 03:54 Diltiazem HCl/ Sodium Chloride (Cardizem Inj/NS Inj) 125 ml @ 0 mls/hr TITRATE IV 12/19/16 18:15 12/20/16 06:28 Vital Signs / I&O Vital Signs Date Time Temp Pulse Resp B/P Pulse Ox O2 Delivery O2 Flow Rate FiO2 12/20/16 07:00 130 12/20/16 06:14 130 12/20/16 05:07 106 12/20/16 04:19 116 12/20/16 03:26 98.0 122 20 118/71 96 12/20/16 03:26 123 12/20/16 02:09 121 12/20/16 01:26 119 12/20/16 00:03 84 12/19/16 23:15 97.8 72 22 103/66 95 12/19/16 23:00 72 12/19/16 22:00 126 12/19/16 21:00 142 12/19/16 20:26 96 Nasal Cannula 3.00 12/19/16 20:15 140 12/19/16 19:20 97.7 139 20 117/70 96 12/19/16 19:20 96 Nasal Cannula 3.00 12/19/16 19:20 139 12/19/16 18:00 128 12/19/16 17:00 138 12/19/16 16:00 126 12/19/16 15:00 98.0 130 18 110/74 98 12/19/16 15:00 140 12/19/16 14:00 130 12/19/16 13:00 122 12/19/16 12:00 130 12/19/16 12:00 98.2 136 18 120/79 99 12/19/16 11:00 134 12/19/16 10:15 99 Nasal Cannula 2.00 12/19/16 10:00 136 12/19/16 09:00 120 I/O 12/19/16 12/19/16 12/19/16 12/20/16 8/5/17 8/5/17 07:00 15:00 23:00 07:00 15:00 23:00 Intake Total 670 ml 760 ml 1338 ml Output Total 1400 ml 1250 ml 2100 ml Balance -730 ml -490 ml -762 ml Intake Oral 620 ml 660 ml 1181 ml IV Total 50 ml 100 ml 157 ml Output Urine Total 1400 ml 1250 ml 2100 ml # Bowel Movements 0 Physical Exam GENERAL: This is a well-nourished, well-developed patient, in no apparent distress. CARDIOVASCULAR: rapid rate and irregular rhythm without murmurs, gallops, or rubs. RESPIRATORY: Clear to auscultation. Breath sounds equal bilaterally. No wheezes , rales, or rhonchi. GASTROINTESTINAL: Abdomen soft, non-tender, nondistended. Normal, active bowel sounds MUSCULOSKELETAL: Extremities without clubbing, cyanosis, or edema. NEURO: Alert & Oriented x4 to person, place, time, situation. Moves all ext x4 Laboratory Laboratory Tests Test 12/20/16 05:00 White Blood Count 4.9 TH/MM3 Red Blood Count 2.99 MIL/MM3 Hemoglobin 8.5 GM/DL Hematocrit 25.6 % Mean Corpuscular Volume 85.6 FL Mean Corpuscular Hemoglobin 28.4 PG Mean Corpuscular Hemoglobin 33.1 % Concent Red Cell Distribution Width 20.5 % Platelet Count 155 TH/MM3 Mean Platelet Volume 8.8 FL Neutrophils (%) (Auto) 68.7 % Lymphocytes (%) (Auto) 18.6 % Monocytes (%) (Auto) 10.7 % Eosinophils (%) (Auto) 1.5 % Basophils (%) (Auto) 0.5 % Neutrophils # (Auto) 3.4 TH/MM3 Lymphocytes # (Auto) 0.9 TH/MM3 Monocytes # (Auto) 0.5 TH/MM3 Eosinophils # (Auto) 0.1 TH/MM3 Basophils # (Auto) 0.0 TH/MM3 CBC Comment DIFF FINAL Differential Comment Sodium Level 135 MEQ/L Potassium Level 4.1 MEQ/L Chloride Level 98 MEQ/L Carbon Dioxide Level 29.0 MEQ/L Anion Gap 8 MEQ/L Blood Urea Nitrogen 11 MG/DL Creatinine 0.64 MG/DL Estimat Glomerular Filtration 128 ML/MIN Rate Random Glucose 130 MG/DL Calcium Level 8.1 MG/DL Phosphorus Level 3.0 MG/DL Magnesium Level 1.5 MG/DL B-Type Natriuretic Peptide 498 PG/ML Albumin 1.8 GM/DL Imaging Last Impressions Abdomen MRI 12/17/16 0000 Signed Impressions: Service Date/Time: Saturday, December 17, 2016 13:59 - CONCLUSION: 1. No acute finding is identified to explain the abdominal pain. 2. Stable thickening of the distal esophagus. There is a single mildly enlarged left gastric lymph node measuring 12 x 10 mm. 3. Moderate sized bilateral pleural effusions, left larger than right, with associated compressive atelectasis. Washington Marroquin MD Chest X-Ray 12/12/16 0000 Signed Impressions: Service Date/Time: Monday, December 12, 2016 17:04 - CONCLUSION: Slight CHF and left basilar opacity may be pleural effusion or consolidation. Mali Law MD Head CT 12/01/16 0000 Signed Impressions: Service Date/Time: Thursday, December 01, 2016 07:59 - CONCLUSION: 1. Questionable area of low attenuation left temporal lobe could be artifact versus less likely infarct. MRI may be warranted based on clinical history. 2. No midline shift or mass effect. 3. No intraparenchymal hemorrhage. Jagjit Tapia MD Brain MRI 12/01/16 0000 Signed Impressions: Service Date/Time: Thursday, December 01, 2016 12:07 - CONCLUSION: Normal examination. Barrett Rodriguez MD Abdomen X-Ray 12/01/16 0000 Signed Impressions: Service Date/Time: Thursday, December 01, 2016 16:48 - CONCLUSION: No evidence of obstruction. Feeding tube tip in the distal stomach. Barrett Rodriguez MD Abdomen/Pelvis CT 11/29/16 [id number] Signed Impressions: Service Date/Time: Wednesday, November 30, 2016 01:35 - CONCLUSION: 1. Markedly abnormal appearance of the distal esophagus consistent with the history of esophageal carcinoma. 2. Atherosclerotic calcifications of the aorta and iliac vessels. 3. Cirrhotic appearance to the liver with a mildly nodular contour present. Erik Simon MD CT Angiography 11/29/16 9817 Signed Impressions: Service Date/Time: Wednesday, November 30, 2016 01:35 - CONCLUSION: 1. No evidence for pulmonary embolism or pneumonia. 2. Abnormal appearance of the esophagus with and soft tissue consistent with the history of carcinoma. Erik Simon MD Assessment and Plan Problem List: (1) NSTEMI (non-ST elevated myocardial infarction) Assessment and Plan: s/p PCI to LCx; continue asa/stain/plavix (2) SCC (squamous cell carcinoma) (3) Parotid mass (4) Hypertension (5) Rapid atrial fibrillation Assessment and Plan: On cardizem ggt, PO dilt, digoxin; added eliquis; may require ablation as rates have been difficult Luis Enrique Quinonez MD Dec 20, 2016 08:54
[2016-12-20] MEDS: PANTOPRAZOLE SOD 40 MG DELAYED RELEASE TAB PO SCH ×2 (09:00→20:45)
[2016-12-20] MEDS: SODIUM CHLORIDE 0.9% FLUSH 10 ML FLUSH IV FLUSH SCH ×3 (09:00→20:50)
[2016-12-20] MEDS: RIFAMPIN 150 MG CAP PO SCH ×2 (09:00→20:44)
[2016-12-20] MEDS: ASPIRIN 81 MG CHEW TAB PO SCH (09:04)
[2016-12-20] MEDS: METOPROLOL TARTRATE 50 MG TAB PO SCH ×2 (09:04→20:44)
[2016-12-20] MEDS: ENOXAPARIN SODIUM 40 MG/0.4 ML SYRINGE SQ SCH (09:04)
[2016-12-20] MEDS: predniSONE 20 MG TAB PO SCH (09:04)
[2016-12-20] MEDS: CLOPIDOGREL 75 MG TAB PO SCH (09:04)
[2016-12-20] MEDS: DIGOXIN 0.125 MG TAB PO SCH (09:05)
[2016-12-20] MEDS: MULTIVITAMIN TAB PO SCH (09:05)
[2016-12-20] MEDS: FOLIC ACID 1 MG TAB PO SCH (09:05)
[2016-12-20] MEDS: THIAMINE HCL 100 MG TAB PO SCH (09:05)
[2016-12-20] MEDS: POLYETHYLENE GLYCOL 17 GM PKG PO SCH (09:05)
[2016-12-20] MEDS: DOCUSATE SODIUM 50 MG/SENNA 8.6 MG TAB PO SCH ×2 (09:05→20:44)
[2016-12-20] MEDS: INSULIN DETEMIR 100 UNITS/ML VIAL SQ SCH ×2 (09:09→20:50)
[2016-12-20] MEDS ORDERED: DILTIAZEM HCL 25 MG/5 ML VIAL IV ONE (09:30)
[2016-12-20] MEDS ORDERED: APIXABAN 5 MG TABLET PO SCH (10:00)
--- NOTE | 2016-12-20 10:02 | HHI.PR ---
Subjective Remarks f/u; a-fib/ sepsis with mild sob. still tachycardic. had on and off chest pain. no fever. Objective Vitals Vital Signs Date Time Temp Pulse Resp B/P Pulse Ox O2 Delivery O2 Flow Rate FiO2 12/20/16 08:00 97.7 146 17 113/69 99 12/20/16 07:00 130 12/20/16 06:14 130 12/20/16 05:07 106 12/20/16 04:19 116 12/20/16 03:26 98.0 122 20 118/71 96 12/20/16 03:26 123 12/20/16 02:09 121 12/20/16 01:26 119 12/20/16 00:03 84 12/19/16 23:15 97.8 72 22 103/66 95 12/19/16 23:00 72 12/19/16 22:00 126 12/19/16 21:00 142 12/19/16 20:26 96 Nasal Cannula 3.00 12/19/16 20:15 140 12/19/16 19:20 97.7 139 20 117/70 96 12/19/16 19:20 96 Nasal Cannula 3.00 12/19/16 19:20 139 12/19/16 18:00 128 12/19/16 17:00 138 12/19/16 16:00 126 12/19/16 15:00 98.0 130 18 110/74 98 12/19/16 15:00 140 12/19/16 14:00 130 12/19/16 13:00 122 12/19/16 12:00 130 12/19/16 12:00 98.2 136 18 120/79 99 12/19/16 11:00 134 12/19/16 10:15 99 Nasal Cannula 2.00 12/19/16 10:00 136 I/O 12/19/16 12/19/16 12/19/16 12/20/16 12/20/16 12/20/16 07:00 15:00 23:00 07:00 15:00 23:00 Intake Total 670 ml 760 ml 1338 ml Output Total 1400 ml 1250 ml 2100 ml Balance -730 ml -490 ml -762 ml Intake Oral 620 ml 660 ml 1181 ml IV Total 50 ml 100 ml 157 ml Output Urine Total 1400 ml 1250 ml 2100 ml # Bowel Movements 0 Result Diagram: 12/20/16 0500 12/20/16 0500 Imaging Last Impressions Abdomen MRI 12/17/16 0000 Signed Impressions: Service Date/Time: Saturday, December 17, 2016 13:59 - CONCLUSION: 1. No acute finding is identified to explain the abdominal pain. 2. Stable thickening of the distal esophagus. There is a single mildly enlarged left gastric lymph node measuring 12 x 10 mm. 3. Moderate sized bilateral pleural effusions, left larger than right, with associated compressive atelectasis. Washington Marroquin MD Chest X-Ray 12/12/16 0000 Signed Impressions: Service Date/Time: Monday, December 12, 2016 17:04 - CONCLUSION: Slight CHF and left basilar opacity may be pleural effusion or consolidation. Mali Law MD Head CT 12/01/16 0000 Signed Impressions: Service Date/Time: Thursday, December 01, 2016 07:59 - CONCLUSION: 1. Questionable area of low attenuation left temporal lobe could be artifact versus less likely infarct. MRI may be warranted based on clinical history. 2. No midline shift or mass effect. 3. No intraparenchymal hemorrhage. Jagjit Tapia MD Brain MRI 12/01/16 0000 Signed Impressions: Service Date/Time: Thursday, December 01, 2016 12:07 - CONCLUSION: Normal examination. Barrett Rodriguez MD Abdomen X-Ray 12/01/16 0000 Signed Impressions: Service Date/Time: Thursday, December 01, 2016 16:48 - CONCLUSION: No evidence of obstruction. Feeding tube tip in the distal stomach. Barrett Rodriguez MD Abdomen/Pelvis CT 11/29/16 [id number] Signed Impressions: Service Date/Time: Wednesday, November 30, 2016 01:35 - CONCLUSION: 1. Markedly abnormal appearance of the distal esophagus consistent with the history of esophageal carcinoma. 2. Atherosclerotic calcifications of the aorta and iliac vessels. 3. Cirrhotic appearance to the liver with a mildly nodular contour present. Erik Simon MD CT Angiography 11/29/16 [id number] Signed Impressions: Service Date/Time: Wednesday, November 30, 2016 01:35 - CONCLUSION: 1. No evidence for pulmonary embolism or pneumonia. 2. Abnormal appearance of the esophagus with and soft tissue consistent with the history of carcinoma. Erik Simon MD Objective Remarks GENERAL: in no acute distress but confused CARDIOVASCULAR: irregular rhythm and tachycardic. RESPIRATORY: Clear to auscultation. Breath sounds equal bilaterally. No wheezes , rales, or rhonchi. GASTROINTESTINAL: Abdomen soft, non-tender, nondistended. Normal, active bowel sounds MUSCULOSKELETAL: Extremities without clubbing, cyanosis, or edema. NEURO: awake, alert and less confused today; oriented to person, place and partly to time. Procedures central line/ arterial line placement intubation cardiac catheterization port removal Medications and IVs Current Medications Sodium Chloride (NS 1000 ml Inj) 1,000 ml @ 999 mls/hr BOLUS ONCE IV Last administered on 11/30/16 01:52; Start 11/30/16 at 00:00; Stop 11/30/16 at 01:00 ; Status DC Morphine Sulfate (Morphine Inj) 4 mg ONCE ONCE IV PUSH Last administered on 01:53; Start 11/30/16 at 01:00; Stop 11/30/16 at 01:01; Status DC Potassium Bicarb/ Potassium Chloride (K-Lyte Cl Eff) 75 meq ONCE ONCE PO Last administered on 11/30/16 01:53; Start 11/30/16 at 01:30; Stop 11/30/16 at 01:31; Status DC Iohexol (Omnipaque 350 Inj) 75 ml STK-MED ONCE IV ; Start 11/30/16 at 01:37; Stop 11/30/16 at 01:38; Status DC Calcium Gluconate 1 gm 1 gm ONCE ONCE IV PUSH Last administered on 11/30/16 02:58; Start 11/30/16 at 02:45; Stop 11/30/16 at 02:46; Status DC Sodium Chloride (NS 1000 ml Inj) 1,000 ml @ 100 mls/hr Q10H IV Last administered on 11/30/16 02:58; Start 11/30/16 at 02:33; Stop 11/30/16 at 13:54 ; Status DC Sodium Chloride (NS Flush) 2 ml UNSCH PRN IV FLUSH FLUSH AFTER USING IV ACCESS Last administered on 12/01/16 21:53; Start 11/30/16 at 02:45 Sodium Chloride (NS Flush) 2 ml BID IV FLUSH Last administered on 12/18/16 20: 52; Start 11/30/16 at 09:00 Ondansetron HCl (Zofran Inj) 4 mg Q6H PRN IVP NAUSEA OR VOMITING; Start at 02:45; Stop 11/30/16 at 13:51; Status DC Acetaminophen (Tylenol) 650 mg Q6H PRN PO FEVER/PAIN SCALE 1 TO 2; Start at 02:45; Stop 11/30/16 at 13:54; Status DC Hydromorphone HCl (Dilaudid Pf Inj) 1 mg Q3H PRN IV Pain 6-10 Last administered on 12/04/16 06:52; Start 11/30/16 at 02:45; Stop 12/04/16 at 09:25 ; Status DC Oxycodone HCl (Roxicodone) 5 mg Q4H PRN PO PAIN SCALE 3 TO 5 Last administered on 12/17/16 15:47; Start 11/30/16 at 02:45 Senna/Docusate Sodium (Rere-Colace) 1 tab BID PO Last administered on 12/20/16 09:05; Start 11/30/16 at 09:00 Magnesium Hydroxide (Milk Of Magnesia Liq) 30 ml Q12H PRN PO MILD - MODERATE CONSTIPATION; Start 11/30/16 at 02:45 Sennosides (Senokot) 17.2 mg Q12H PRN PO MODERATE - SEVERE CONSTIPATION; Start 11/30/16 at 02:45 Bisacodyl (Dulcolax Supp) 10 mg DAILY PRN RECTAL SEVERE CONSITIPATION; Start at 02:45 Lactulose (Lactulose Liq) 30 ml DAILY PRN PO SEVERE CONSITIPATION; Start at 02:45 Pantoprazole Sodium (Protonix Inj) 40 mg Q12H IV PUSH Last administered on 12/12 21:10; Start 11/30/16 at 09:00; Stop 12/13/16 at 08:25; Status DC Miscellaneous Information Patient in critical care unit? Ass... Q361D .XX ; Start 11/30/16 at 05:15 Chlorhexidine Gluconate (Chlorhexidine 2% Cloth) 3 pack DAILY@04 TOPICAL Last administered on 12/05/16 04:00; Start 12/01/16 at 04:00; Stop 12/05/16 at 04:01 ; Status DC Chlorhexidine Gluconate (Chlorhexidine 2% Cloth) 3 pack UNSCH PRN TOPICAL HYGIENIC CARE; Start 11/30/16 at 05:15; Stop 12/05/16 at 05:12; Status DC Aspirin 81 mg 81 mg ONCE ONCE PO Last administered on 11/30/16 12:19; Start 11/30/16 at 12:00; Stop 11/30/16 at 12:01; Status DC Heparin Sodium/ Dextrose (Heparin-D5W Inj) 250 ml @ 0 mls/hr TITRATE IV Last administered on 11/30/16 12:21; Start 11/30/16 at 12:15; Stop 11/30/16 at 13:49 ; Status DC Heparin Sodium (Porcine) (Heparin Inj) 5,000 units UNSCH PRN IV aPTT less than 25; Start 11/30/16 at 12:15; Stop 11/30/16 at 13:49; Status DC Heparin Sodium (Porcine) (Heparin Inj) 2,500 units UNSCH PRN IV aPTT 25 to 39; Start 11/30/16 at 12:15; Stop 11/30/16 at 13:49; Status DC Heparin Sodium (Porcine) 4000 units 4,000 units ONCE ONCE IV Last administered on 11/30/16 12:19; Start 11/30/16 at 12:15; Stop 11/30/16 at 12:16 ; Status DC Heparin Sodium/ Sodium Chloride (Heparin-NS/Pf Inj) 500 ml @ As Directed STK- MED ONCE .ROUTE Last administered on 11/30/16 12:36; Start 11/30/16 at 12:36; Stop 11/30/16 at 12:37; Status DC Midazolam HCl (Versed Inj) 2 mg STK-MED ONCE .ROUTE Last administered on 12:36; Start 11/30/16 at 12:36; Stop 11/30/16 at 12:37; Status DC Fentanyl Citrate (fentaNYL INJ) 100 mcg STK-MED ONCE .ROUTE Last administered on 11/30/16 12:36; Start 11/30/16 at 12:36; Stop 11/30/16 at 12:37; Status DC Dextrose (D50w (Syr) Inj) 50 ml STK-MED ONCE .ROUTE Last administered on 12:53; Start 11/30/16 at 12:53; Stop 11/30/16 at 12:54; Status DC Phenylephrine HCl (Neosynephrine Inj) 40 mg STK-MED ONCE .ROUTE Last administered on 11/30/16 13:04; Start 11/30/16 at 13:04; Stop 11/30/16 at 13:05 ; Status DC Clopidogrel Bisulfate 600 mg 600 mg STK-MED ONCE .ROUTE ; Start 11/30/16 at 13: 25; Stop 11/30/16 at 13:26; Status DC Sodium Chloride (NS 1000 ml Inj) 1,000 ml @ 125 mls/hr Q8H IV Last administered on 11/30/16 21:51; Start 11/30/16 at 13:42; Stop 11/30/16 at 17:41 ; Status DC Acetaminophen (Tylenol) 325 mg Q4H PRN PO PAIN SCALE 1 TO 2 Last administered on 12/13/16 17:13; Start 11/30/16 at 13:45 Aspirin (Aspirin Chew) 81 mg DAILY PO Last administered on 12/20/16 09:04; Start 11/30/16 at 13:45 Clopidogrel Bisulfate (Plavix) 600 mg ONCE ONCE PO ; Start 11/30/16 at 13:45; Stop 11/30/16 at 13:47; Status DC Clopidogrel Bisulfate (Plavix) 75 mg DAILY PO Last administered on 12/20/16 09: 04; Start 12/01/16 at 09:00 Miscellaneous Information 1 ONCE ONCE XX ; Start 11/30/16 at 13:45; Stop at 13:49; Status DC Atropine Sulfate (Atropine Inj) 0.5 mg UNSCH PRN IV VAGAL REPONSE; Start at 13:45 Ondansetron HCl (Zofran Inj) 4 mg Q4H PRN IV NAUSEA Last administered on 22:06; Start 11/30/16 at 13:45 Metoprolol Tartrate (Lopressor) 12.5 mg BID PO Last administered on 12/01/16 09:51; Start 11/30/16 at 21:00; Stop 12/14/16 at 16:12; Status DC Atorvastatin Calcium (Lipitor) 10 mg HS PO Last administered on 12/02/16 21:22 ; Start 11/30/16 at 21:00; Stop 12/12/16 at 09:02; Status DC Miscellaneous Information HOLD METFORMIN FOR... Q24H .XX ; Start 11/30/16 at 15: 00; Stop 12/02/16 at 14:59; Status DC Potassium Chloride (KCl 20 Meq Premix Inj) 100 ml @ 50 mls/hr Q2H IV Last administered on 11/30/16 19:24; Start 11/30/16 at 18:00; Stop 11/30/16 at 21:59 ; Status DC Sodium Chloride (NS Flush) 5 ml Q21D IV FLUSH Last administered on 11/30/16 18 :00; Start 11/30/16 at 18:00 Heparin Sodium (Porcine) (Heparin Central Flush) 500 units Q21D IV FLUSH Last administered on 11/30/16 18:04; Start 11/30/16 at 18:00 Sodium Chloride (NS Flush) 5 ml UNSCH PRN IV FLUSH SEE LABEL COMMENTS; Start at 18:00 Heparin Sodium (Porcine) (Heparin Central Flush) 250 units UNSCH PRN IV FLUSH FLUSH AFTER USING IV ACCESS; Start 11/30/16 at 18:00 Lorazepam (Ativan Inj) 0.5 mg ONCE ONCE IV PUSH Last administered on 06:37; Start 12/01/16 at 06:30; Stop 12/01/16 at 06:31; Status DC Lorazepam 0.5 mg 0.5 mg ONCE ONCE IV Last administered on 12/01/16 07:43; Start 12/01/16 at 07:45; Stop 12/01/16 at 07:46; Status DC Potassium Chloride 30 meq/ Sodium Chloride 115 ml @ 38.333 mls/ hr Q3H IV- CENTRAL Last administered on 12/01/16 12:43; Start 12/01/16 at 08:30; Stop at 14:29; Status DC Vancomycin HCl 2100 mg/Sodium Chloride 521 ml @ 250 mls/hr ONCE ONCE IV Last administered on 12/01/16 12:43; Start 12/01/16 at 12:00; Stop 12/01/16 at 14:06 ; Status DC Pharmacy Profile Note 0 ml @ 0 mls/hr UNSCH OTHER ; Start 12/01/16 at 10:30; Status UNV Pharmacy Profile Note 0 ml @ 0 mls/hr UNSCH OTHER ; Start 12/01/16 at 11:00; Stop 12/01/16 at 13:07; Status DC Vancomycin HCl 1250 mg/Sodium Chloride 262.5 ml @ 262.5 mls/ hr Q24H IV ; Start 12/02/16 at 09:00; Stop 12/02/16 at 09:00; Status DC Ceftriaxone Sodium 2000 mg/ Sodium Chloride 100 ml @ 200 mls/hr Q24H IV ; Start 12/01/16 at 14:00; Stop 12/01/16 at 16:10; Status DC Thiamine HCl/ Sodium Chloride (Thiamine Inj/NS Inj) 101 ml @ 101 mls/hr DAILY IV Last administered on 12/01/16 14:09; Start 12/01/16 at 13:00; Stop at 08:28; Status DC Flumazenil (Romazicon Inj) 0.2 mg Q1M PRN IV PUSH SEE LABEL COMMENTS; Start at 13:00 Lorazepam (Ativan) 1 mg Q4H PRN PO CIWA 8 - 10; Start 12/01/16 at 13:00; Stop 12/04/16 at 09:29; Status DC Lorazepam (Ativan Inj) 1 mg Q4H PRN IV PUSH CIWA 8 - 10 Last administered on 21:52; Start 12/01/16 at 13:00; Stop 12/04/16 at 09:29; Status DC Lorazepam (Ativan) 2 mg Q2H PRN PO CIWA 11-14; Start 12/01/16 at 13:00; Stop at 09:29; Status DC Lorazepam (Ativan Inj) 2 mg Q2H PRN IV PUSH CIWA 11-14 Last administered on t 04:37; Start 12/01/16 at 13:00; Stop 12/04/16 at 09:29; Status DC Lorazepam (Ativan Inj) 2 mg Q1H PRN IV PUSH CIWA 15-20; Start 12/01/16 at 13:00 ; Stop 12/04/16 at 09:29; Status DC Lorazepam 2 mg 2 mg Q15M PRN IV PUSH CIWA > 20; Start 12/01/16 at 13:00; Stop 12/04/16 at 09:29; Status DC Sodium Chloride 1,000 ml @ 999 mls/hr BOLUS ONCE IV Last administered on 12/01 14:09; Start 12/01/16 at 13:00; Stop 12/01/16 at 14:06; Status DC Sodium Chloride (NS 1000 ml Inj) 1,000 ml @ 999 mls/hr BOLUS ONCE IV Last administered on 12/01/16 14:09; Start 12/01/16 at 13:00; Stop 12/01/16 at 14:06 ; Status DC Morphine Sulfate 8 mg 8 mg STK-MED ONCE .ROUTE Last administered on 12/01/16 14:06; Start 12/01/16 at 14:04; Stop 12/01/16 at 14:05; Status DC Dexmedetomidine HCl/Sodium Chloride (Precedex Inj/NS Inj) 52 ml @ 0 mls/hr TITRATE IV ; Start 12/01/16 at 14:30; Stop 12/03/16 at 07:50; Status DC Albuterol/ Ipratropium (Duoneb Neb) 1 ampule Q6HR NEB NEB Last administered on 12/05/16 15:58; Start 12/01/16 at 16:00; Stop 12/05/16 at 16:00; Status DC Albuterol/ Ipratropium 1 ampule 1 ampule Q2HR NEB PRN NEB SHORTNESS OF BREATH Last administered on 12/17/16 01:21; Start 12/01/16 at 14:30 Cefazolin Sodium/ Dextrose 50 ml @ 100 mls/hr Q8H IV Last administered on 12/03 08:27; Start 12/01/16 at 18:00; Stop 12/06/16 at 09:11; Status DC Pharmacy Profile Note 0 ml @ 0 mls/hr UNSCH OTHER ; Start 12/01/16 at 16:15; Stop 12/03/16 at 10:51; Status DC Sodium Chloride (NS 1000 ml Inj) 1,000 ml @ 50 mls/hr Q20H IV Last administered on 12/04/16 05:40; Start 12/01/16 at 16:30; Stop 12/04/16 at 09:25 ; Status DC Acetaminophen 650 mg 650 mg Q6H PRN PO FEVER Last administered on 12/02/16 01 :07; Start 12/01/16 at 17:30 Vancomycin HCl/ Sodium Chloride (Vancomycin Inj/ NS 500 ml Inj) 521 ml @ 250 mls/hr Q18H IV Last administered on 12/02/16 05:36; Start 12/02/16 at 06:00; Stop 12/02/16 at 11:38; Status DC Miscellaneous Information SPECIFIC LAB TO BE DRAWN:VANCO TROUGH DATE TO... ONCE ONCE .XX ; Start 12/03/16 at 17:45; Stop 12/03/16 at 17:46; Status Cancel Sodium Chloride (NS 1000 ml Inj) 1,000 ml @ 999 mls/hr BOLUS ONCE IV Last administered on 12/02/16 06:30; Start 12/02/16 at 06:30; Stop 12/02/16 at 07:30 ; Status DC Methylprednisolone Sodium Succinate (SoluMEDROL INJ) 125 mg ONCE STAT IV PUSH Last administered on 12/02/16 07:14; Start 12/02/16 at 06:52; Stop 12/02/16 at 06:59; Status DC Methylprednisolone Sodium Succinate (SoluMEDROL INJ) 60 mg Q8HR IV PUSH Last administered on 12/05/16 05:17; Start 12/02/16 at 14:00; Stop 12/05/16 at 09:00 ; Status DC Etomidate (Amidate Inj) 20 mg STK-MED ONCE .ROUTE Last administered on 08:07; Start 12/02/16 at 07:29; Stop 12/02/16 at 07:30; Status DC Midazolam HCl (Versed Inj) 5 mg STK-MED ONCE .ROUTE Last administered on 08:07; Start 12/02/16 at 07:29; Stop 12/02/16 at 07:30; Status DC Rocuronium [place] (Zemuron Inj) 50 mg STK-MED ONCE .ROUTE Last administered on 12/02/16 08:08; Start 12/02/16 at 07:30; Stop 12/02/16 at 07:31; Status DC Enoxaparin Sodium (Lovenox Inj) 40 mg Q24H SQ Last administered on 12/20/16 09: 04; Start 12/02/16 at 09:00; Stop 12/20/16 at 09:13; Status DC Chlorhexidine Gluconate 15 ml 15 ml BID@08,20 MT Last administered on 08:00; Start 12/02/16 at 08:00 Propofol 100 ml @ 0 mls/hr TITRATE IV Last administered on 12/02/16 19:59; Start 12/02/16 at 08:00; Stop 12/03/16 at 07:50; Status DC Fentanyl Citrate (fentaNYL DRIP) 250 ml @ 0 mls/hr TITRATE IV Last administered on 12/03/16 04:05; Start 12/02/16 at 08:00; Stop 12/04/16 at 09:25 ; Status DC Metoprolol Tartrate 2.5 mg 2.5 mg Q6H PRN IV PUSH HR >110 Last administered on 12/20/16 02:51; Start 12/02/16 at 08:15 Multivitamins/ Thiamine HCl/ Folic Acid/Sodium Chloride (Mvi-12 Inj/ Thiamine Inj/ Folvite Inj/1/2 NS 500 ml Inj) 511.2 ml @ 125 mls/hr DAILY IV Last administered on 12/04/16 09:21; Start 12/02/16 at 09:00; Stop 12/05/16 at 09:00 ; Status DC Sodium Bicarbonate (Sodium Bicarbonate 8.4% Inj) 50 meq STK-MED ONCE .ROUTE ; Start 12/02/16 at 09:06; Stop 12/02/16 at 09:07; Status DC Sodium Bicarbonate 50 meq 50 meq NOW ONCE IV PUSH Last administered on 11:16; Start 12/02/16 at 09:45; Stop 12/02/16 at 09:46; Status DC Vasopressin/ Dextrose (Pitressin Inj/ D5W 100 ml Inj) 100 ml @ 4.5 mls/hr [id number] IV Last administered on 12/03/16 04:17; Start 12/02/16 at 11:04; Stop 12/06/16 at 07:32; Status DC Sodium Bicarbonate (Sodium Bicarbonate 8.4% Inj) 50 meq ONCE ONCE IV PUSH Last administered on 12/02/16 11:38; Start 12/02/16 at 11:15; Stop 12/02/16 at 11:22; Status DC Rocuronium [place] 50 mg 50 mg BOLUS ONCE IV Last administered on 12/02/16 11 :39; Start 12/02/16 at 11:15; Stop 12/02/16 at 11:22; Status DC Sodium Bicarbonate 50 ml @ As Directed STK-MED ONCE .ROUTE Last administered on 12/02/16 15:53; Start 12/02/16 at 11:06; Stop 12/02/16 at 11:07; Status DC Vancomycin HCl 2000 mg/Sodium Chloride 520 ml @ 250 mls/hr Q18H IV Last administered on 12/02/16 23:46; Start 12/03/16 at 00:00; Stop 12/03/16 at 10:51 ; Status DC Norepinephrine Bitartrate (Levophed-Dextrose Drip) 250 ml @ 0 mls/hr TITRATE IV Last administered on 12/03/16 04:05; Start 12/02/16 at 15:15; Stop 12/08/16 at 10:23; Status DC Terbutaline Sulfate 1 mg 1 mg UNSCH PRN SQ For Extravasation; Start 12/02/16 at 15:15 Sodium Bicarbonate/ Sterile Water (Sodium Bicarbonate 8.4% Inj/Sterile Water For Inj) 1,000 ml @ 150 mls/hr Q6H40M IV Last administered on 12/03/16 04:16 ; Start 12/02/16 at 16:00; Stop 12/03/16 at 07:49; Status DC Iohexol (OMNIPAQUE 350 INJ (Window Framer)) 100 ml STK-MED ONCE OTHER ; Start at 12:30; Stop 12/02/16 at 15:48; Status DC Lidocaine HCl (Xylocaine 1% Inj (50 ml)) 50 ml STK-MED ONCE .ROUTE ; Start 12/02 at 19:06; Stop 12/02/16 at 19:07; Status DC Dextrose (D50w (Vial) Inj) 50 ml UNSCH PRN IV HYPOGLYCEMIA-SEE COMMENTS; Start 12/02/16 at 22:30 Glucagon (Glucagon Inj) 1 mg UNSCH PRN OTHER HYPOGLYCEMIA-SEE COMMENTS; Start 12/02/16 at 22:30 Insulin Aspart 1 1 Q4HR SQ Last administered on 12/14/16 04:00; Start at 00:00; Stop 12/14/16 at 08:16; Status DC Midazolam HCl (Versed 100 Mg/ ml Inj) 100 ml @ 0 mls/hr TITRATE IV ; Start 12/03 at 08:00; Stop 12/04/16 at 09:25; Status DC Polyethylene Glycol (Miralax) 17 gm DAILY PO Last administered on 12/20/16 09: 05; Start 12/04/16 at 09:00 Bumetanide (Bumex Inj) 1 mg STK-MED ONCE .ROUTE ; Start 12/03/16 at 11:46; Stop 12/03/16 at 11:47; Status DC Bumetanide 1 mg 1 mg NOW ONCE IV PUSH ; Start 12/03/16 at 15:00; Stop 12/03/16 at 15:01; Status DC Cefepime HCl/ Sodium Chloride (Maxipime Inj/NS Inj) 100 ml @ 200 mls/hr Q8H IV Last administered on 12/06/16 08:16; Start 12/03/16 at 17:00; Stop 12/06/16 at 09:08; Status DC Bumetanide 1 mg 1 mg ONCE ONCE IV PUSH Last administered on 12/04/16 10:00; Start 12/04/16 at 09:30; Stop 12/04/16 at 09:32; Status DC Potassium Chloride (KCl 40 Meq Premix Inj) 100 ml @ 25 mls/hr Q4H IV ; Start at 10:00; Stop 12/04/16 at 17:59; Status DC Morphine Sulfate 2 mg 2 mg Q3H PRN IV PUSH pain 5-10 Last administered on 05:16; Start 12/04/16 at 09:30; Stop 12/05/16 at 09:01; Status DC Potassium Chloride 100 ml @ 50 mls/hr Q2H PRN IV For Potassium 2.8 - 3.2 mEq/ L Last administered on 12/04/16 21:17; Start 12/04/16 at 09:30; Stop 12/16/16 at 07:44; Status DC Potassium Chloride (KCl 20 Meq Premix Inj) 100 ml @ 50 mls/hr Q2H PRN IV For Potassium 2.8 - 3.2 mEq/L; Start 12/04/16 at 09:30; Stop 12/16/16 at 07:44; Status DC Potassium Bicarb/ Potassium Chloride 50 meq 50 meq UNSCH PRN PO For Potassium 3.3 - 3.5 mEq/L; Start 12/04/16 at 09:30; Stop 12/16/16 at 07:44; Status DC Potassium Chloride 100 ml @ 25 mls/hr UNSCH PRN IV For Potassium 3.3 - 3.5 mEq /L; Start 12/04/16 at 09:30; Stop 12/16/16 at 07:44; Status DC Potassium Chloride 100 ml @ 50 mls/hr Q2H PRN IV For Potassium 3.3 - 3.5 mEq/L ; Start 12/04/16 at 09:30; Stop 12/16/16 at 07:44; Status DC Magnesium Sulfate/ Sodium Chloride (Magnesium Sulfate Inj/NS Inj) 100 ml @ 50 mls/hr UNSCH PRN IV For Magnesium 0.9 - 1.1 mg/dL; Start 12/04/16 at 09:30; Stop 12/16/16 at 07:44; Status DC Magnesium Oxide 800 mg 800 mg UNSCH PRN PO For Magnesium 1.2 - 1.6 mg/dL; Start 12/04/16 at 09:30; Stop 12/16/16 at 07:44; Status DC Magnesium Sulfate/ Sodium Chloride (Magnesium Sulfate Inj/NS Inj) 100 ml @ 50 mls/hr UNSCH PRN IV For Magnesium 1.2 - 1.6 mg/dL; Start 12/04/16 at 09:30; Stop 12/16/16 at 07:44; Status DC Potassium Phosphate 2000 mg 2,000 mg Q4H PRN PO For Phosphorus < 2.5 mg/dL; Start 12/04/16 at 09:30; Stop 12/16/16 at 07:45; Status DC Sodium Phosphate/ Sodium Chloride (Sodium Phosphate Inj/NS 250 ml Inj) 250 ml @ 42 mls/hr UNSCH PRN IV For Phosphorus < 2.5 mg/dL Last administered on t 06:41; Start 12/04/16 at 09:30; Stop 12/16/16 at 07:45; Status DC Potassium Phosphate 2000 mg 2,000 mg UNSCH PRN PO/TUBE SEE LABEL COMMENTS; Start 12/04/16 at 09:30; Stop 12/16/16 at 07:45; Status DC Potassium Phosphate/Sodium Chloride (Potassium Phosphate Inj/NS 250 ml Inj) 260 ml @ 42 mls/hr UNSCH PRN IV SEE LABEL COMMENTS; Start 12/04/16 at 09:30; Stop 12/16/16 at 07:45; Status DC Potassium Bicarb/ Potassium Chloride (K-Lyte Cl Eff) 25 meq ONCE ONCE PO ; Start 12/04/16 at 09:30; Stop 12/04/16 at 09:42; Status DC Bumetanide 1 mg 1 mg ONCE ONCE IV PUSH Last administered on 12/04/16 12:32; Start 12/04/16 at 12:00; Stop 12/04/16 at 12:01; Status DC Calcium Gluconate/ Sodium Chloride (Calcium Gluconate Inj/NS Inj) 110 ml @ 110 mls/hr ONCE ONCE IV Last administered on 12/05/16 10:29; Start 12/05/16 at 09 :30; Stop 12/05/16 at 10:29; Status DC Methylprednisolone Sodium Succinate (SoluMEDROL INJ) 40 mg Q12HR IV PUSH Last administered on 12/10/16 20:09; Start 12/05/16 at 09:00; Stop 12/11/16 at 09:04 ; Status DC Thiamine HCl (Vitamin B1) 100 mg DAILY PO Last administered on 12/20/16 09:05; Start 12/05/16 at 09:00 Multivitamins (Theragran) 1 tab DAILY PO Last administered on 12/20/16 09:05; Start 12/05/16 at 09:00 Folic Acid (Folate) 1 mg DAILY PO Last administered on 12/20/16 09:05; Start at 09:00 Morphine Sulfate (Morphine Inj) 2 mg Q2H PRN IV PUSH pain 5-10 Last administered on 12/17/16 01:20; Start 12/05/16 at 10:30; Stop 12/17/16 at 10:52; Status DC Albuterol/ Ipratropium 1 ampule 1 ampule Q4HR NEB NEB Last administered on 03:40; Start 12/06/16 at 08:00; Stop 12/10/16 at 08:00; Status DC Sodium Chloride (1/2 NS 1000 ml Inj) 1,000 ml @ 125 mls/hr Q8H IV Last administered on 12/07/16 21:33; Start 12/06/16 at 07:30; Stop 12/08/16 at 10:23 ; Status DC Rifampin 300 mg 300 mg Q12HR PO Last administered on 12/19/16 21:15; Start at 09:15; Stop 01/15/17 at 23:00 Cefazolin Sodium/ Dextrose (Ancef 2 Gm Premix) 50 ml @ 100 mls/hr Q8H IV Last administered on 12/20/16 09:07; Start 12/06/16 at 10:00; Stop 01/15/17 at 23:00 Levofloxacin (Levaquin) 750 mg Q24H PO Last administered on 12/12/16 08:58; Start 12/06/16 at 10:00; Stop 12/13/16 at 09:59; Status DC Insulin Detemir (Levemir Inj) 5 units Q12HR SQ Last administered on 12/13/16 21:29; Start 12/07/16 at 09:00; Stop 12/14/16 at 08:17; Status DC Methylnaltrexone [place] (Relistor Inj) 12 mg ONCE ONCE SQ Last administered on 12/07/16 16:58; Start 12/07/16 at 15:00; Stop 12/07/16 at 15:11; Status DC Metoprolol Tartrate (Lopressor Inj) 2.5 mg ONCE ONCE IV PUSH Last administered on 12/08/16 15:15; Start 12/08/16 at 15:00; Stop 12/08/16 at 15:01 ; Status DC Diltiazem HCl (Cardizem Inj) 10 mg ONCE ONCE IV ; Start 12/08/16 at 15:15; Stop 12/08/16 at 16:09; Status DC Metoprolol Tartrate (Lopressor) 50 mg Q12HR PO Last administered on 12/13/16 20:52; Start 12/08/16 at 21:00; Stop 12/14/16 at 09:12; Status DC Diltiazem HCl (Cardizem) 60 mg Q6H PO Last administered on 12/18/16 17:25; Start 12/09/16 at 05:00; Stop 12/18/16 at 18:39; Status DC Lorazepam (Ativan Inj) 1 mg Q4H PRN IV PUSH ANXIETY AND/OR AGITATION Last administered on 12/19/16 01:59; Start 12/09/16 at 15:15 Haloperidol Lactate (Haldol Inj) 2 mg Q8H PRN IM AGITATION AND/OR HALLUCINATION ; Start 12/10/16 at 17:00 Methylprednisolone Sodium Succinate (SoluMEDROL INJ) 20 mg Q12HR IV PUSH Last administered on 12/13/16 20:50; Start 12/11/16 at 21:00; Stop 12/13/16 at 22:00 ; Status DC Atorvastatin Calcium (Lipitor) 40 mg HS PO Last administered on 12/19/16 21:14 ; Start 12/12/16 at 21:00 Sodium Chloride (NS Flush) See Protocol DAILY IV FLUSH Last administered on 12/19 08:34; Start 12/13/16 at 09:00 Sodium Chloride (NS Flush) See Protocol UNSCH PRN IV FLUSH SEE PROTOCOL TABLE; Start 12/12/16 at 17:00 Heparin Sodium (Porcine) (Heparin Central Flush) See Protocol DAILY IV FLUSH Last administered on 12/19/16 08:34; Start 12/13/16 at 09:00 Heparin Sodium (Porcine) (Heparin Central Flush) See Protocol UNSCH PRN IV FLUSH SEE PROTOCOL TABLE; Start 12/12/16 at 17:00 Sodium Chloride UNSCH PRN IV FLUSH SEE PROTOCOL TABLE Last administered on 12/19 01:59; Start 12/12/16 at 17:00 Sodium Chloride (NS 250 ml Inj) 250 ml @ 15 mls/hr ONCE ONCE IV Last administered on 12/13/16 09:34; Start 12/13/16 at 08:15; Stop 12/14/16 at 00:54 ; Status DC Acetaminophen (Tylenol) 650 mg Q4H PRN PO SEE LABEL COMMENTS; Start 12/13/16 at 08:15; Stop 12/13/16 at 12:16; Status DC Diphenhydramine HCl (Benadryl) 25 mg Q4H PRN PO SEE LABEL COMMENTS; Start 12/13 at 08:15; Stop 12/13/16 at 12:16; Status Cancel Prednisone (Deltasone) 40 mg DAILY PO Last administered on 12/16/16 08:53; Start 12/14/16 at 09:00; Stop 12/16/16 at 09:28; Status DC Pantoprazole Sodium (Protonix) 40 mg Q12HR PO Last administered on 12/20/16 09: 00; Start 12/13/16 at 09:00 Diphenhydramine HCl (Benadryl) 25 mg Q4H PRN PO SEE LABEL COMMENTS; Start 12/13 at 17:15; Stop 12/13/16 at 21:16; Status DC Insulin Aspart (NovoLOG SUPPLEMENTAL SCALE) 1 ACHS SLIDING SCALE SQ Last administered on 12/19/16 21:00; Start 12/14/16 at 11:00 Insulin Detemir (Levemir Inj) 6 units Q12HR SQ Last administered on 12/20/16 09 :09; Start 12/14/16 at 09:00 Metoprolol Tartrate (Lopressor) 75 mg Q12HR PO Last administered on 12/14/16 12:00; Start 12/14/16 at 12:00; Stop 12/14/16 at 16:10; Status DC Etomidate (Amidate Inj) 25 mg ONCE ONCE IVP ; Start 12/14/16 at 12:15; Stop at 18:48; Status DC Fentanyl Citrate (fentaNYL INJ) 200 mcg ONCE ONCE IV ; Start 12/14/16 at 12:15 ; Stop 12/14/16 at 18:48; Status DC Succinylcholine Chloride (Quelicin Inj) 150 mg ONCE ONCE IV ; Start 12/14/16 at 12:15; Stop 12/14/16 at 18:48; Status DC Metoprolol Tartrate (Lopressor) 100 mg Q12HR PO Last administered on 12/20/16 09:04; Start 12/14/16 at 21:00 Metoprolol Tartrate 25 mg 25 mg ONCE ONCE PO Last administered on 12/14/16 16 :55; Start 12/14/16 at 16:15; Stop 12/14/16 at 16:16; Status DC Iron Sucrose/ Sodium Chloride (Venofer Inj/NS Inj) 105 ml @ 105 mls/hr DAILY IV Last administered on 12/18/16 08:01; Start 12/16/16 at 09:00; Stop 12/18/16 at 09:59; Status DC Nitroglycerin (Nitrostat Sl) 0.4 mg Q5M PRN SL CHEST PAIN; Start 12/16/16 at 00: 15 Prednisone (Deltasone) 20 mg DAILY PO Last administered on 12/20/16 09:04; Start 12/17/16 at 09:00 Gadodiamide (Omniscan Pf Inj) 21 ml STK-MED ONCE IV Last administered on 15:41; Start 12/17/16 at 15:41; Stop 12/17/16 at 15:42; Status DC Oxycodone HCl (Roxicodone) 10 mg Q4H PRN PO PAIN 6-10 Last administered on 05:22; Start 12/17/16 at 19:00 Diltiazem HCl (Cardizem Inj) 20 mg ONCE PRN IV if HR 110-130 Last administered on 12/17/16 21:49; Start 12/17/16 at 21:30; Stop 12/17/16 at 22:30; Status DC Diltiazem HCl 20 mg 20 mg ONCE ONCE IVP ; Start 12/17/16 at 21:30; Stop 12/17/16 at 21:40; Status DC Diltiazem HCl/ Sodium Chloride (Cardizem Inj/NS Inj) 125 ml @ 0 mls/hr TITRATE IV Last administered on 12/17/16 22:12; Start 12/17/16 at 21:30; Stop 12/19/16 at 18:12; Status DC Lorazepam (Ativan) 0.5 mg DAILY PRN PO ANXIETY Last administered on 12/19/16 08 :29; Start 12/18/16 at 15:45 Diltiazem HCl (Cardizem) 90 mg Q6H PO Last administered on 12/20/16 03:54; Start 12/18/16 at 23:00 Diltiazem HCl (Cardizem) 30 mg NOW ONCE PO Last administered on 12/18/16 19:33 ; Start 12/18/16 at 19:30; Stop 12/18/16 at 19:31; Status DC Diltiazem HCl (Cardizem Inj) 10 mg NOW ONCE IV Last administered on 12/18/16 19:32; Start 12/18/16 at 19:30; Stop 12/18/16 at 19:31; Status DC Alteplase, Recombinant (Cathflo Activase Inj) 2 mg UNSCH X1 IV FLUSH ; Start at 19:45; Stop 12/18/16 at 23:00; Status DC Metoprolol Tartrate (Lopressor Inj) 5 mg ONCE ONCE IV PUSH Last administered on 12/19/16 05:40; Start 12/19/16 at 05:30; Stop 12/19/16 at 05:31; Status DC Digoxin (Lanoxin Inj) 0.5 mg NOW STAT IVS Last administered on 12/19/16 17:19 ; Start 12/19/16 at 16:51; Stop 12/19/16 at 17:04; Status DC Digoxin (Lanoxin Inj) 0.25 mg Q6H IVS Last administered on 12/20/16 03:54; Start 12/19/16 at 23:00; Stop 12/20/16 at 05:01; Status DC Digoxin (Lanoxin) 0.125 mg DAILY PO Last administered on 12/20/16 09:05; Start 12/20/16 at 09:00 Furosemide (Lasix Inj) 20 mg ONCE ONCE IV PUSH Last administered on 12/19/16 18:12; Start 12/19/16 at 17:45; Stop 12/19/16 at 17:46; Status DC Potassium Bicarb/ Potassium Chloride 25 meq 25 meq ONCE ONCE PO Last administered on 12/19/16 18:12; Start 12/19/16 at 17:45; Stop 12/19/16 at 17:46; Status DC Diltiazem HCl/ Sodium Chloride (Cardizem Inj/NS Inj) 125 ml @ 0 mls/hr TITRATE IV Last administered on 12/20/16 06:28; Start 12/19/16 at 18:15 Diltiazem HCl (Cardizem Inj) 18 mg NOW ONCE IV Last administered on 12/19/16 19:29; Start 12/19/16 at 18:15; Stop 8/4/17 at 18:16; Status DC Apixaban (Eliquis) 5 mg BID PO ; Start 12/20/16 at 10:00; Stop 12/20/16 at 10:00; Status DC Apixaban (Eliquis) 5 mg BID PO ; Start 12/20/16 at 10:00 Diltiazem HCl (Cardizem Inj) 10 mg ONCE ONCE IV ; Start 12/20/16 at 09:30; Stop 12/20/16 at 09:31; Status DC A/P Assessment and Plan A/P -Septic shock-resolved -MSSA bacteremia -[id number] infection - s/p removal of [id number] by GS. Dressing changes per GS. Appreciate assistance. - Catheter tip culture blood culture and wound culture also positive for MSSA - Continue abx per ID, on IV Ancef, po Rifampin x 6 weeks from port removal and (completed course of Levaquin PO on 12/13). LFTs 12/15/16 wnl, continue antibiotics/Ancef until 01/15/17. -Acute metabolic encephalopathy- resolved -Agitation - Encephalopathy most likely secondary to severe sepsis - Continue Thiamine, MVI, folic acid. -Acute hypoxemic respiratory failure -Acute COPD exacerbation -Tobacco abuse - Emergently intubated and placed on mechanical ventilation 12/02/16, extubated successfully 12/03/16 - Continue with oxygen keep sat >92% - continue neb treatment - s/p IV Solu-Medrol , continue to taper down prednisone. -NSTEMI -atrial fibrillation- difficult to control - s/p PCI to LCx by Dr. Krause on 11/30/16 - Continue ASA/Plavix/metoprolol,cardizem and statin. - Metoprolol was increased to 100 mg twice a day -continue po cardizem.digoxin and eliquis were added- might need ablation-cardiology following. -IV lopressor prn- -continue to monitor and adjust the regimen as needed. 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 Will need EUS however per GI can be done as an outpatient. They have signed off. Appreciate assistance. - on po Protonix - Oncology following. He will need weekly Erbitux and XRT outpatient. - Status post surgical resection for L parotid SCC. plan for chemo and radiation per oncology. -Anemia Hb now stable at 8.5, s/p 1unit PRBC. Per heme/onc recs, transfuse if Hb<8. Monitor H&H. -Diabetes -Hypothyroidism - Electrolyte replacement per protocol - SSI ( medium scale) and Levemir 6 units BID for glycemic control. Monitor BS closely. - Continue thyroid supplementation -PROPH: - Bilateral lower extremity SCDs. - started on Eliquis- Lovenox was discontinued. -continue PPI Zamzam Kim MD Dec 20, 2016 10:02
[2016-12-20] MEDS: APIXABAN 5 MG TABLET PO SCH ×2 (11:28→20:44)
[2016-12-20] MEDS ORDERED: ATROPINE SULFATE 1 MG/10 ML SYRINGE ONE (12:45)
[2016-12-20] MEDS ORDERED: EPINEPHrine HCL (1:10,000) 1 MG/10 ML SYRINGE ONE (12:45)
--- NOTE | 2016-12-20 13:46 | RADRPT ---
EXAM DATE/TIME: 12/20/2016 13:15 [facility] COMPARISON: CT PULMONARY ANGIOGRAM, November 30, 2016, 1:35. INDICATIONS : Obstruction. FLUORO TIME: 1.1 minutes IMAGE COUNT: 7 CONTRAST: 1. Liquid E-Z Paque Barium Sulfate (60% w/v, 41% w.w) MEDICAL HISTORY : Carcinoma, esophageal. SURGICAL HISTORY : Appendectomy. ENCOUNTER: Subsequent ACUITY: 1 week PAIN SCORE: 0/10 LOCATION: Bilateral abdomen FINDINGS: Secondary to the patient's condition, I could only perform semi-upright RPO imaging. Patient drank th in liquid barium via straw. The distal half of the esophagus is irregular with irregular luminal narrowing. Just proximal to the level of irregular narrowing is a mildly dilated esophagus. Caliber change and is near the level of t he elizabeth. A small hiatal hernia is present. The proximal half of the esophagus demonstrates no abnor mality. There is no obstruction. CONCLUSION: 1. The distal half of the esophagus demonstrates irregular luminal narrowing consistent with the cristian ent's history of esophageal adenocarcinoma. 2. Mild dilatation of the esophagus immediately proximal to the esophageal mass. However, there are n o signs of obstruction. 3. Small hiatal hernia. Washington Marroquin MD on December 20, 2016 at 13:41 Board Certified Radiologist. This report was verified electronically.
[2016-12-20] MEDS ORDERED: diphenhydrAMINE HCL 25 MG CAP PO ONE (18:45)
[2016-12-20] MEDS ORDERED: ACETAMINOPHEN 325 MG TAB PO ONE (18:45)
[2016-12-20] MEDS: ATORVASTATIN 40 MG TAB PO SCH (20:44)
[2016-12-21] VITALS (25 sets, daily range): BP systolic 107–122; BP diastolic 65–78; PULSE 79–146; RESP 16–20; TEMP 97.8–98.2; O2SAT 98–100
[2016-12-21] MEDS ORDERED: CALCIUM CARBONATE 500 MG CHEWABLE TAB CHEW ONE ×2 (00:45→05:00)
[2016-12-21] MEDS: ceFAZolin 2 GM PREMIX 50 ML IV SCH ×3 (02:00→17:11)
[2016-12-21] MEDS: DILTIAZEM HCL 90 MG TAB PO SCH ×3 (04:52→17:18)
[2016-12-21 05:08] LABS: HEMATOCRIT 28.7 % (39.0-51.0); MEAN CELL VOLUME 86.9 FL (80.0-100.0); MEAN CORPUSCULAR HEMOGLOBIN 27.9 PG (27.0-34.0); MEAN CORPUSCULAR HGB CONC 32.1 % (32.0-36.0); PLATELET COUNT 161 TH/MM3 (150-450); RED CELL DISTRIBUTION WIDTH 21.1 % (11.6-17.2); REVIEW FLAG FINAL; WHITE BLOOD COUNT 5.1 TH/MM3 (4.0-11.0)
[2016-12-21] MEDS: INSULIN ASPART SUPPLEMENTAL SCALE SQ SCH ×4 (05:52→21:15)
[2016-12-21] MEDS: CHLORHEXIDINE 0.12% (ORAL KIT) 15 ML CUP MT SCH ×2 (08:00→20:00)
[2016-12-21] MEDS: DOCUSATE SODIUM 50 MG/SENNA 8.6 MG TAB PO SCH ×2 (08:28→21:16)
[2016-12-21] MEDS: METOPROLOL TARTRATE 50 MG TAB PO SCH ×2 (08:28→21:02)
[2016-12-21] MEDS: POLYETHYLENE GLYCOL 17 GM PKG PO SCH (08:28)
[2016-12-21] MEDS: MULTIVITAMIN TAB PO SCH (08:28)
[2016-12-21] MEDS: RIFAMPIN 150 MG CAP PO SCH ×2 (08:29→21:11)
[2016-12-21] MEDS: APIXABAN 5 MG TABLET PO SCH ×2 (08:29→21:02)
[2016-12-21] MEDS: ASPIRIN 81 MG CHEW TAB PO SCH (08:29)
[2016-12-21] MEDS: CLOPIDOGREL 75 MG TAB PO SCH (08:29)
[2016-12-21] MEDS: DIGOXIN 0.125 MG TAB PO SCH (08:29)
[2016-12-21] MEDS: predniSONE 10 MG TAB PO SCH (08:30)
[2016-12-21] MEDS: PANTOPRAZOLE SOD 40 MG DELAYED RELEASE TAB PO SCH ×2 (08:30→21:01)
[2016-12-21] MEDS: THIAMINE HCL 100 MG TAB PO SCH (08:30)
[2016-12-21] MEDS: FOLIC ACID 1 MG TAB PO SCH (08:31)
[2016-12-21] MEDS: SODIUM CHLORIDE 0.9% FLUSH 10 ML FLUSH IV FLUSH SCH ×4 (08:32→21:04)
[2016-12-21] MEDS: INSULIN DETEMIR 100 UNITS/ML VIAL SQ SCH ×2 (08:32→21:13)
--- NOTE | 2016-12-21 08:56 | HHI.PR ---
Subjective Remarks f/u ; a-fib in no acute distress. HR still elevated. complaining of worsening dysphagia. reports some dyspepsia as well. d/w the RN at the bedside. Objective Vitals Vital Signs Date Time Temp Pulse Resp B/P Pulse Ox O2 Delivery O2 Flow Rate FiO2 12/21/16 07:29 97.9 134 19 108/68 99 12/21/16 06:00 120 12/21/16 05:00 110 12/21/16 04:00 116 16 122/78 100 12/21/16 04:00 117 12/21/16 03:00 96 12/21/16 02:00 104 12/21/16 01:00 104 12/21/16 00:00 81 16 112/66 100 12/21/16 00:00 101 12/20/16 23:00 76 12/20/16 22:00 72 12/20/16 21:15 97.9 98 16 120/66 98 12/20/16 21:00 104 12/20/16 20:00 98.1 104 16 104/65 100 12/20/16 20:00 100 12/20/16 19:45 98 Nasal Cannula 2.00 12/20/16 19:15 98.0 109 16 117/73 98 12/20/16 19:00 106 12/20/16 18:55 98.4 110 17 120/66 98 12/20/16 18:00 116 12/20/16 17:05 118 12/20/16 16:00 128 12/20/16 15:20 97.6 113 17 117/72 100 12/20/16 15:00 97 12/20/16 14:30 98 Nasal Cannula 2.00 12/20/16 14:00 103 12/20/16 13:00 109 12/20/16 12:00 72 12/20/16 11:19 98.1 77 15 113/62 97 12/20/16 11:00 77 12/20/16 10:00 84 12/20/16 09:00 144 I/O 12/20/16 12/20/16 12/20/16 12/21/16 12/21/16 12/21/16 07:00 15:00 23:00 07:00 15:00 23:00 Intake Total 1338 ml 1340 ml 480 ml Output Total 2100 ml 1700 ml 2250 ml Balance -762 ml -360 ml -1770 ml Intake Oral 1181 ml 1000 ml 480 ml IV Total 157 ml 340 ml Output Urine Total 2100 ml 1700 ml 2250 ml # Bowel Movements 1 1 Result Diagram: 12/21/16 0440 12/20/16 0500 Imaging Last Impressions Barium Swallow X-Ray 12/20/16 0000 Signed Impressions: Service Date/Time: Tuesday, December 20, 2016 13:15 - CONCLUSION: 1. The distal half of the esophagus demonstrates irregular luminal narrowing consistent with the patient's history of esophageal adenocarcinoma. 2. Mild dilatation of the esophagus immediately proximal to the esophageal mass. However, there are no signs of obstruction. 3. Small hiatal hernia. Washington Marroquin MD Abdomen MRI 12/17/16 0000 Signed Impressions: Service Date/Time: Saturday, December 17, 2016 13:59 - CONCLUSION: 1. No acute finding is identified to explain the abdominal pain. 2. Stable thickening of the distal esophagus. There is a single mildly enlarged left gastric lymph node measuring 12 x 10 mm. 3. Moderate sized bilateral pleural effusions, left larger than right, with associated compressive atelectasis. Washington Marroquin MD Chest X-Ray 12/12/16 0000 Signed Impressions: Service Date/Time: Monday, December 12, 2016 17:04 - CONCLUSION: Slight CHF and left basilar opacity may be pleural effusion or consolidation. Mali Law MD Head CT 12/01/16 0000 Signed Impressions: Service Date/Time: Thursday, December 01, 2016 07:59 - CONCLUSION: 1. Questionable area of low attenuation left temporal lobe could be artifact versus less likely infarct. MRI may be warranted based on clinical history. 2. No midline shift or mass effect. 3. No intraparenchymal hemorrhage. Jagjit Tapia MD Brain MRI 12/01/16 0000 Signed Impressions: Service Date/Time: Thursday, December 01, 2016 12:07 - CONCLUSION: Normal examination. Barrett Rodriguez MD Abdomen X-Ray 12/01/16 0000 Signed Impressions: Service Date/Time: Thursday, December 01, 2016 16:48 - CONCLUSION: No evidence of obstruction. Feeding tube tip in the distal stomach. Barrett Rodriguez MD Abdomen/Pelvis CT 11/29/16 [id number] Signed Impressions: Service Date/Time: Wednesday, November 30, 2016 01:35 - CONCLUSION: 1. Markedly abnormal appearance of the distal esophagus consistent with the history of esophageal carcinoma. 2. Atherosclerotic calcifications of the aorta and iliac vessels. 3. Cirrhotic appearance to the liver with a mildly nodular contour present. Erik Simon MD CT Angiography 11/29/16 [id number] Signed Impressions: Service Date/Time: Wednesday, November 30, 2016 01:35 - CONCLUSION: 1. No evidence for pulmonary embolism or pneumonia. 2. Abnormal appearance of the esophagus with and soft tissue consistent with the history of carcinoma. Erik Simon MD Objective Remarks GENERAL: in no acute distress but confused CARDIOVASCULAR: irregular rhythm and tachycardic. systolic murmur noted in LSB RESPIRATORY: Clear to auscultation. Breath sounds equal bilaterally. No wheezes , rales, or rhonchi. GASTROINTESTINAL: Abdomen soft, non-tender, nondistended. Normal, active bowel sounds MUSCULOSKELETAL: lower extremities with bilateral pedal edema. NEURO: awake, alert and less confused today; oriented to person, place and partly to time. Procedures central line/ arterial line placement intubation cardiac catheterization port removal Medications and IVs Current Medications Sodium Chloride (NS 1000 ml Inj) 1,000 ml @ 999 mls/hr BOLUS ONCE IV Last administered on 11/30/16 01:52; Start 11/30/16 at 00:00; Stop 11/30/16 at 01:00 ; Status DC Morphine Sulfate (Morphine Inj) 4 mg ONCE ONCE IV PUSH Last administered on 01:53; Start 11/30/16 at 01:00; Stop 11/30/16 at 01:01; Status DC Potassium Bicarb/ Potassium Chloride (K-Lyte Cl Eff) 75 meq ONCE ONCE PO Last administered on 11/30/16 01:53; Start 11/30/16 at 01:30; Stop 11/30/16 at 01:31; Status DC Iohexol (Omnipaque 350 Inj) 75 ml STK-MED ONCE IV ; Start 11/30/16 at 01:37; Stop 11/30/16 at 01:38; Status DC Calcium Gluconate 1 gm 1 gm ONCE ONCE IV PUSH Last administered on 11/30/16 02:58; Start 11/30/16 at 02:45; Stop 11/30/16 at 02:46; Status DC Sodium Chloride (NS 1000 ml Inj) 1,000 ml @ 100 mls/hr Q10H IV Last administered on 11/30/16 02:58; Start 11/30/16 at 02:33; Stop 11/30/16 at 13:54 ; Status DC Sodium Chloride (NS Flush) 2 ml UNSCH PRN IV FLUSH FLUSH AFTER USING IV ACCESS Last administered on 12/01/16 21:53; Start 11/30/16 at 02:45 Sodium Chloride (NS Flush) 2 ml BID IV FLUSH Last administered on 12/21/16 08: 32; Start 11/30/16 at 09:00 Ondansetron HCl (Zofran Inj) 4 mg Q6H PRN IVP NAUSEA OR VOMITING; Start at 02:45; Stop 11/30/16 at 13:51; Status DC Acetaminophen (Tylenol) 650 mg Q6H PRN PO FEVER/PAIN SCALE 1 TO 2; Start at 02:45; Stop 11/30/16 at 13:54; Status DC Hydromorphone HCl (Dilaudid Pf Inj) 1 mg Q3H PRN IV Pain 6-10 Last administered on 12/04/16 06:52; Start 11/30/16 at 02:45; Stop 12/04/16 at 09:25 ; Status DC Oxycodone HCl (Roxicodone) 5 mg Q4H PRN PO PAIN SCALE 3 TO 5 Last administered on 12/17/16 15:47; Start 11/30/16 at 02:45 Senna/Docusate Sodium (Rere-Colace) 1 tab BID PO Last administered on 12/21/16 08:28; Start 11/30/16 at 09:00 Magnesium Hydroxide (Milk Of Magnesia Liq) 30 ml Q12H PRN PO MILD - MODERATE CONSTIPATION; Start 11/30/16 at 02:45 Sennosides (Senokot) 17.2 mg Q12H PRN PO MODERATE - SEVERE CONSTIPATION; Start 11/30/16 at 02:45 Bisacodyl (Dulcolax Supp) 10 mg DAILY PRN RECTAL SEVERE CONSITIPATION; Start at 02:45 Lactulose (Lactulose Liq) 30 ml DAILY PRN PO SEVERE CONSITIPATION; Start at 02:45 Pantoprazole Sodium (Protonix Inj) 40 mg Q12H IV PUSH Last administered on 12/12 21:10; Start 11/30/16 at 09:00; Stop 12/13/16 at 08:25; Status DC Miscellaneous Information Patient in critical care unit? Ass... Q361D .XX ; Start 11/30/16 at 05:15 Chlorhexidine Gluconate (Chlorhexidine 2% Cloth) 3 pack DAILY@04 TOPICAL Last administered on 12/05/16 04:00; Start 12/01/16 at 04:00; Stop 12/05/16 at 04:01 ; Status DC Chlorhexidine Gluconate (Chlorhexidine 2% Cloth) 3 pack UNSCH PRN TOPICAL HYGIENIC CARE; Start 11/30/16 at 05:15; Stop 12/05/16 at 05:12; Status DC Aspirin 81 mg 81 mg ONCE ONCE PO Last administered on 11/30/16 12:19; Start 11/30/16 at 12:00; Stop 11/30/16 at 12:01; Status DC Heparin Sodium/ Dextrose (Heparin-D5W Inj) 250 ml @ 0 mls/hr TITRATE IV Last administered on 11/30/16 12:21; Start 11/30/16 at 12:15; Stop 11/30/16 at 13:49 ; Status DC Heparin Sodium (Porcine) (Heparin Inj) 5,000 units UNSCH PRN IV aPTT less than 25; Start 11/30/16 at 12:15; Stop 11/30/16 at 13:49; Status DC Heparin Sodium (Porcine) (Heparin Inj) 2,500 units UNSCH PRN IV aPTT 25 to 39; Start 11/30/16 at 12:15; Stop 11/30/16 at 13:49; Status DC Heparin Sodium (Porcine) 4000 units 4,000 units ONCE ONCE IV Last administered on 11/30/16 12:19; Start 11/30/16 at 12:15; Stop 11/30/16 at 12:16 ; Status DC Heparin Sodium/ Sodium Chloride (Heparin-NS/Pf Inj) 500 ml @ As Directed STK- MED ONCE .ROUTE Last administered on 11/30/16 12:36; Start 11/30/16 at 12:36; Stop 11/30/16 at 12:37; Status DC Midazolam HCl (Versed Inj) 2 mg STK-MED ONCE .ROUTE Last administered on 12:36; Start 11/30/16 at 12:36; Stop 11/30/16 at 12:37; Status DC Fentanyl Citrate (fentaNYL INJ) 100 mcg STK-MED ONCE .ROUTE Last administered on 11/30/16 12:36; Start 11/30/16 at 12:36; Stop 11/30/16 at 12:37; Status DC Dextrose (D50w (Syr) Inj) 50 ml STK-MED ONCE .ROUTE Last administered on 12:53; Start 11/30/16 at 12:53; Stop 11/30/16 at 12:54; Status DC Phenylephrine HCl (Neosynephrine Inj) 40 mg STK-MED ONCE .ROUTE Last administered on 11/30/16 13:04; Start 11/30/16 at 13:04; Stop 11/30/16 at 13:05 ; Status DC Clopidogrel Bisulfate 600 mg 600 mg STK-MED ONCE .ROUTE ; Start 11/30/16 at 13: 25; Stop 11/30/16 at 13:26; Status DC Sodium Chloride (NS 1000 ml Inj) 1,000 ml @ 125 mls/hr Q8H IV Last administered on 11/30/16 21:51; Start 11/30/16 at 13:42; Stop 11/30/16 at 17:41 ; Status DC Acetaminophen (Tylenol) 325 mg Q4H PRN PO PAIN SCALE 1 TO 2 Last administered on 12/13/16 17:13; Start 11/30/16 at 13:45 Aspirin (Aspirin Chew) 81 mg DAILY PO Last administered on 12/21/16 08:29; Start 11/30/16 at 13:45 Clopidogrel Bisulfate (Plavix) 600 mg ONCE ONCE PO ; Start 11/30/16 at 13:45; Stop 11/30/16 at 13:47; Status DC Clopidogrel Bisulfate (Plavix) 75 mg DAILY PO Last administered on 12/21/16 08: 29; Start 12/01/16 at 09:00 Miscellaneous Information 1 ONCE ONCE XX ; Start 11/30/16 at 13:45; Stop at 13:49; Status DC Atropine Sulfate (Atropine Inj) 0.5 mg UNSCH PRN IV VAGAL REPONSE; Start at 13:45 Ondansetron HCl (Zofran Inj) 4 mg Q4H PRN IV NAUSEA Last administered on 22:06; Start 11/30/16 at 13:45 Metoprolol Tartrate (Lopressor) 12.5 mg BID PO Last administered on 12/01/16 09:51; Start 11/30/16 at 21:00; Stop 12/14/16 at 16:12; Status DC Atorvastatin Calcium (Lipitor) 10 mg HS PO Last administered on 12/02/16 21:22 ; Start 11/30/16 at 21:00; Stop 12/12/16 at 09:02; Status DC Miscellaneous Information HOLD METFORMIN FOR... Q24H .XX ; Start 11/30/16 at 15: 00; Stop 12/02/16 at 14:59; Status DC Potassium Chloride (KCl 20 Meq Premix Inj) 100 ml @ 50 mls/hr Q2H IV Last administered on 11/30/16 19:24; Start 11/30/16 at 18:00; Stop 11/30/16 at 21:59 ; Status DC Sodium Chloride (NS Flush) 5 ml Q21D IV FLUSH Last administered on 11/30/16 18 :00; Start 11/30/16 at 18:00 Heparin Sodium (Porcine) (Heparin Central Flush) 500 units Q21D IV FLUSH Last administered on 11/30/16 18:04; Start 11/30/16 at 18:00 Sodium Chloride (NS Flush) 5 ml UNSCH PRN IV FLUSH SEE LABEL COMMENTS; Start at 18:00 Heparin Sodium (Porcine) (Heparin Central Flush) 250 units UNSCH PRN IV FLUSH FLUSH AFTER USING IV ACCESS; Start 11/30/16 at 18:00 Lorazepam (Ativan Inj) 0.5 mg ONCE ONCE IV PUSH Last administered on 06:37; Start 12/01/16 at 06:30; Stop 12/01/16 at 06:31; Status DC Lorazepam 0.5 mg 0.5 mg ONCE ONCE IV Last administered on 12/01/16 07:43; Start 12/01/16 at 07:45; Stop 12/01/16 at 07:46; Status DC Potassium Chloride 30 meq/ Sodium Chloride 115 ml @ 38.333 mls/ hr Q3H IV- CENTRAL Last administered on 12/01/16 12:43; Start 12/01/16 at 08:30; Stop at 14:29; Status DC Vancomycin HCl 2100 mg/Sodium Chloride 521 ml @ 250 mls/hr ONCE ONCE IV Last administered on 12/01/16 12:43; Start 12/01/16 at 12:00; Stop 12/01/16 at 14:06 ; Status DC Pharmacy Profile Note 0 ml @ 0 mls/hr UNSCH OTHER ; Start 12/01/16 at 10:30; Status UNV Pharmacy Profile Note 0 ml @ 0 mls/hr UNSCH OTHER ; Start 12/01/16 at 11:00; Stop 12/01/16 at 13:07; Status DC Vancomycin HCl 1250 mg/Sodium Chloride 262.5 ml @ 262.5 mls/ hr Q24H IV ; Start 12/02/16 at 09:00; Stop 12/02/16 at 09:00; Status DC Ceftriaxone Sodium 2000 mg/ Sodium Chloride 100 ml @ 200 mls/hr Q24H IV ; Start 12/01/16 at 14:00; Stop 12/01/16 at 16:10; Status DC Thiamine HCl/ Sodium Chloride (Thiamine Inj/NS Inj) 101 ml @ 101 mls/hr DAILY IV Last administered on 12/01/16 14:09; Start 12/01/16 at 13:00; Stop at 08:28; Status DC Flumazenil (Romazicon Inj) 0.2 mg Q1M PRN IV PUSH SEE LABEL COMMENTS; Start at 13:00 Lorazepam (Ativan) 1 mg Q4H PRN PO CIWA 8 - 10; Start 12/01/16 at 13:00; Stop 12/04/16 at 09:29; Status DC Lorazepam (Ativan Inj) 1 mg Q4H PRN IV PUSH CIWA 8 - 10 Last administered on 21:52; Start 12/01/16 at 13:00; Stop 12/04/16 at 09:29; Status DC Lorazepam (Ativan) 2 mg Q2H PRN PO CIWA 11-14; Start 12/01/16 at 13:00; Stop at 09:29; Status DC Lorazepam (Ativan Inj) 2 mg Q2H PRN IV PUSH CIWA 11-14 Last administered on 04:37; Start 12/01/16 at 13:00; Stop 12/04/16 at 09:29; Status DC Lorazepam (Ativan Inj) 2 mg Q1H PRN IV PUSH CIWA 15-20; Start 12/01/16 at 13:00 ; Stop 12/04/16 at 09:29; Status DC Lorazepam 2 mg 2 mg Q15M PRN IV PUSH CIWA > 20; Start 12/01/16 at 13:00; Stop 12/04/16 at 09:29; Status DC Sodium Chloride 1,000 ml @ 999 mls/hr BOLUS ONCE IV Last administered on 12/01 14:09; Start 12/01/16 at 13:00; Stop 12/01/16 at 14:06; Status DC Sodium Chloride (NS 1000 ml Inj) 1,000 ml @ 999 mls/hr BOLUS ONCE IV Last administered on 12/01/16 14:09; Start 12/01/16 at 13:00; Stop 12/01/16 at 14:06 ; Status DC Morphine Sulfate 8 mg 8 mg STK-MED ONCE .ROUTE Last administered on 12/01/16 14:06; Start 12/01/16 at 14:04; Stop 12/01/16 at 14:05; Status DC Dexmedetomidine HCl/Sodium Chloride (Precedex Inj/NS Inj) 52 ml @ 0 mls/hr TITRATE IV ; Start 12/01/16 at 14:30; Stop 12/03/16 at 07:50; Status DC Albuterol/ Ipratropium (Duoneb Neb) 1 ampule Q6HR NEB NEB Last administered on 12/05/16 15:58; Start 12/01/16 at 16:00; Stop 12/05/16 at 16:00; Status DC Albuterol/ Ipratropium 1 ampule 1 ampule Q2HR NEB PRN NEB SHORTNESS OF BREATH Last administered on 12/17/16 01:21; Start 12/01/16 at 14:30 Cefazolin Sodium/ Dextrose 50 ml @ 100 mls/hr Q8H IV Last administered on 12/03 08:27; Start 12/01/16 at 18:00; Stop 12/06/16 at 09:11; Status DC Pharmacy Profile Note 0 ml @ 0 mls/hr UNSCH OTHER ; Start 12/01/16 at 16:15; Stop 12/03/16 at 10:51; Status DC Sodium Chloride (NS 1000 ml Inj) 1,000 ml @ 50 mls/hr Q20H IV Last administered on 12/04/16 05:40; Start 12/01/16 at 16:30; Stop 12/04/16 at 09:25 ; Status DC Acetaminophen 650 mg 650 mg Q6H PRN PO FEVER Last administered on 12/02/16 01 :07; Start 12/01/16 at 17:30 Vancomycin HCl/ Sodium Chloride (Vancomycin Inj/ NS 500 ml Inj) 521 ml @ 250 mls/hr Q18H IV Last administered on 12/02/16 05:36; Start 12/02/16 at 06:00; Stop 12/02/16 at 11:38; Status DC Miscellaneous Information SPECIFIC LAB TO BE DRAWN:[facility]ANCO TROUGH DATE TO... ONCE ONCE .XX ; Start 12/03/16 at 17:45; Stop 12/03/16 at 17:46; Status Cancel Sodium Chloride (NS 1000 ml Inj) 1,000 ml @ 999 mls/hr BOLUS ONCE IV Last administered on 12/02/16 06:30; Start 12/02/16 at 06:30; Stop 12/02/16 at 07:30 ; Status DC Methylprednisolone Sodium Succinate (SoluMEDROL INJ) 125 mg ONCE STAT IV PUSH Last administered on 12/02/16 07:14; Start 12/02/16 at 06:52; Stop 12/02/16 at 06:59; Status DC Methylprednisolone Sodium Succinate (SoluMEDROL INJ) 60 mg Q8HR IV PUSH Last administered on 12/05/16 05:17; Start 12/02/16 at 14:00; Stop 12/05/16 at 09:00 ; Status DC Etomidate (Amidate Inj) 20 mg STK-MED ONCE .ROUTE Last administered on 08:07; Start 12/02/16 at 07:29; Stop 12/02/16 at 07:30; Status DC Midazolam HCl (Versed Inj) 5 mg STK-MED ONCE .ROUTE Last administered on 08:07; Start 12/02/16 at 07:29; Stop 12/02/16 at 07:30; Status DC Rocuronium Slinger (Zemuron Inj) 50 mg STK-MED ONCE .ROUTE Last administered on 12/02/16 08:08; Start 12/02/16 at 07:30; Stop 12/02/16 at 07:31; Status DC Enoxaparin Sodium (Lovenox Inj) 40 mg Q24H SQ Last administered on 12/20/16 09: 04; Start 12/02/16 at 09:00; Stop 12/20/16 at 09:13; Status DC Chlorhexidine Gluconate 15 ml 15 ml BID@08,20 MT Last administered on 08:00; Start 12/02/16 at 08:00 Propofol 100 ml @ 0 mls/hr TITRATE IV Last administered on 12/02/16 19:59; Start 12/02/16 at 08:00; Stop 12/03/16 at 07:50; Status DC Fentanyl Citrate (fentaNYL DRIP) 250 ml @ 0 mls/hr TITRATE IV Last administered on 12/03/16 04:05; Start 12/02/16 at 08:00; Stop 12/04/16 at 09:25 ; Status DC Metoprolol Tartrate 2.5 mg 2.5 mg Q6H PRN IV PUSH HR >110 Last administered on 12/20/16 18:38; Start 12/02/16 at 08:15 Multivitamins/ Thiamine HCl/ Folic Acid/Sodium Chloride (Mvi-12 Inj/ Thiamine Inj/ Folvite Inj/1/2 NS 500 ml Inj) 511.2 ml @ 125 mls/hr DAILY IV Last administered on 12/04/16 09:21; Start 12/02/16 at 09:00; Stop 12/05/16 at 09:00 ; Status DC Sodium Bicarbonate (Sodium Bicarbonate 8.4% Inj) 50 meq STK-MED ONCE .ROUTE ; Start 12/02/16 at 09:06; Stop 12/02/16 at 09:07; Status DC Sodium Bicarbonate 50 meq 50 meq NOW ONCE IV PUSH Last administered on 11:16; Start 12/02/16 at 09:45; Stop 12/02/16 at 09:46; Status DC Vasopressin/ Dextrose (Pitressin Inj/ D5W 100 ml Inj) 100 ml @ 4.5 mls/hr [id number] IV Last administered on 12/03/16 04:17; Start 12/02/16 at 11:04; Stop 12/06/16 at 07:32; Status DC Sodium Bicarbonate (Sodium Bicarbonate 8.4% Inj) 50 meq ONCE ONCE IV PUSH Last administered on 12/02/16 11:38; Start 12/02/16 at 11:15; Stop 12/02/16 at 11:22; Status DC Rocuronium Slinger 50 mg 50 mg BOLUS ONCE IV Last administered on 12/02/16 11 :39; Start 12/02/16 at 11:15; Stop 12/02/16 at 11:22; Status DC Sodium Bicarbonate 50 ml @ As Directed STK-MED ONCE .ROUTE Last administered on 12/02/16 15:53; Start 12/02/16 at 11:06; Stop 12/02/16 at 11:07; Status DC Vancomycin HCl 2000 mg/Sodium Chloride 520 ml @ 250 mls/hr Q18H IV Last administered on 12/02/16 23:46; Start 12/03/16 at 00:00; Stop 12/03/16 at 10:51 ; Status DC Norepinephrine Bitartrate (Levophed-Dextrose Drip) 250 ml @ 0 mls/hr TITRATE IV Last administered on 12/03/16 04:05; Start 12/02/16 at 15:15; Stop 12/08/16 at 10:23; Status DC Terbutaline Sulfate 1 mg 1 mg UNSCH PRN SQ For Extravasation; Start 12/02/16 at 15:15 Sodium Bicarbonate/ Sterile Water (Sodium Bicarbonate 8.4% Inj/Sterile Water For Inj) 1,000 ml @ 150 mls/hr Q6H40M IV Last administered on 12/03/16 04:16 ; Start 12/02/16 at 16:00; Stop 12/03/16 at 07:49; Status DC Iohexol (OMNIPAQUE 350 INJ (Casting Cleaner)) 100 ml STK-MED ONCE OTHER ; Start at 12:30; Stop 12/02/16 at 15:48; Status DC Lidocaine HCl (Xylocaine 1% Inj (50 ml)) 50 ml STK-MED ONCE .ROUTE ; Start 12/02 at 19:06; Stop 12/02/16 at 19:07; Status DC Dextrose (D50w (Vial) Inj) 50 ml UNSCH PRN IV HYPOGLYCEMIA-SEE COMMENTS; Start 12/02/16 at 22:30 Glucagon (Glucagon Inj) 1 mg UNSCH PRN OTHER HYPOGLYCEMIA-SEE COMMENTS; Start 12/02/16 at 22:30 Insulin Aspart 1 1 Q4HR SQ Last administered on 12/14/16 04:00; Start at 00:00; Stop 12/14/16 at 08:16; Status DC Midazolam HCl (Versed 100 Mg/ ml Inj) 100 ml @ 0 mls/hr TITRATE IV ; Start 12/03 at 08:00; Stop 12/04/16 at 09:25; Status DC Polyethylene Glycol (Miralax) 17 gm DAILY PO Last administered on 12/21/16 08: 28; Start 12/04/16 at 09:00 Bumetanide (Bumex Inj) 1 mg STK-MED ONCE .ROUTE ; Start 12/03/16 at 11:46; Stop 12/03/16 at 11:47; Status DC Bumetanide 1 mg 1 mg NOW ONCE IV PUSH ; Start 12/03/16 at 15:00; Stop 12/03/16 at 15:01; Status DC Cefepime HCl/ Sodium Chloride (Maxipime Inj/NS Inj) 100 ml @ 200 mls/hr Q8H IV Last administered on 12/06/16 08:16; Start 12/03/16 at 17:00; Stop 12/06/16 at 09:08; Status DC Bumetanide 1 mg 1 mg ONCE ONCE IV PUSH Last administered on 12/04/16 10:00; Start 12/04/16 at 09:30; Stop 12/04/16 at 09:32; Status DC Potassium Chloride (KCl 40 Meq Premix Inj) 100 ml @ 25 mls/hr Q4H IV ; Start at 10:00; Stop 12/04/16 at 17:59; Status DC Morphine Sulfate 2 mg 2 mg Q3H PRN IV PUSH pain 5-10 Last administered on t 05:16; Start 12/04/16 at 09:30; Stop 12/05/16 at 09:01; Status DC Potassium Chloride 100 ml @ 50 mls/hr Q2H PRN IV For Potassium 2.8 - 3.2 mEq/ L Last administered on 12/04/16t 21:17; Start 12/04/16 at 09:30; Stop 12/16/16 at 07:44; Status DC Potassium Chloride (KCl 20 Meq Premix Inj) 100 ml @ 50 mls/hr Q2H PRN IV For Potassium 2.8 - 3.2 mEq/L; Start 12/04/16 at 09:30; Stop 12/16/16 at 07:44; Status DC Potassium Bicarb/ Potassium Chloride 50 meq 50 meq UNSCH PRN PO For Potassium 3.3 - 3.5 mEq/L; Start 12/04/16 at 09:30; Stop 12/16/16 at 07:44; Status DC Potassium Chloride 100 ml @ 25 mls/hr UNSCH PRN IV For Potassium 3.3 - 3.5 mEq /L; Start 12/04/16 at 09:30; Stop 12/16/16 at 07:44; Status DC Potassium Chloride 100 ml @ 50 mls/hr Q2H PRN IV For Potassium 3.3 - 3.5 mEq/L ; Start 12/04/16 at 09:30; Stop 12/16/16 at 07:44; Status DC Magnesium Sulfate/ Sodium Chloride (Magnesium Sulfate Inj/NS Inj) 100 ml @ 50 mls/hr UNSCH PRN IV For Magnesium 0.9 - 1.1 mg/dL; Start 12/04/16 at 09:30; Stop 12/16/16 at 07:44; Status DC Magnesium Oxide 800 mg 800 mg UNSCH PRN PO For Magnesium 1.2 - 1.6 mg/dL; Start 12/04/16 at 09:30; Stop 12/16/16 at 07:44; Status DC Magnesium Sulfate/ Sodium Chloride (Magnesium Sulfate Inj/NS Inj) 100 ml @ 50 mls/hr UNSCH PRN IV For Magnesium 1.2 - 1.6 mg/dL; Start 12/04/16 at 09:30; Stop 12/16/16 at 07:44; Status DC Potassium Phosphate 2000 mg 2,000 mg Q4H PRN PO For Phosphorus < 2.5 mg/dL; Start 12/04/16 at 09:30; Stop 12/16/16 at 07:45; Status DC Sodium Phosphate/ Sodium Chloride (Sodium Phosphate Inj/NS 250 ml Inj) 250 ml @ 42 mls/hr UNSCH PRN IV For Phosphorus < 2.5 mg/dL Last administered on 06:41; Start 12/04/16 at 09:30; Stop 12/16/16 at 07:45; Status DC Potassium Phosphate 2000 mg 2,000 mg UNSCH PRN PO/TUBE SEE LABEL COMMENTS; Start 12/04/16 at 09:30; Stop 12/16/16 at 07:45; Status DC Potassium Phosphate/Sodium Chloride (Potassium Phosphate Inj/NS 250 ml Inj) 260 ml @ 42 mls/hr UNSCH PRN IV SEE LABEL COMMENTS; Start 12/04/16 at 09:30; Stop 12/16/16 at 07:45; Status DC Potassium Bicarb/ Potassium Chloride (K-Lyte Cl Eff) 25 meq ONCE ONCE PO ; Start 12/04/16 at 09:30; Stop 12/04/16 at 09:42; Status DC Bumetanide 1 mg 1 mg ONCE ONCE IV PUSH Last administered on 12/04/16 12:32; Start 12/04/16 at 12:00; Stop 12/04/16 at 12:01; Status DC Calcium Gluconate/ Sodium Chloride (Calcium Gluconate Inj/NS Inj) 110 ml @ 110 mls/hr ONCE ONCE IV Last administered on 12/05/16 10:29; Start 12/05/16 at 09 :30; Stop 12/05/16 at 10:29; Status DC Methylprednisolone Sodium Succinate (SoluMEDROL INJ) 40 mg Q12HR IV PUSH Last administered on 12/10/16 20:09; Start 12/05/16 at 09:00; Stop 12/11/16 at 09:04 ; Status DC Thiamine HCl (Vitamin B1) 100 mg DAILY PO Last administered on 12/21/16 08:30; Start 12/05/16 at 09:00 Multivitamins (Theragran) 1 tab DAILY PO Last administered on 12/21/16 08:28; Start 12/05/16 at 09:00 Folic Acid (Folate) 1 mg DAILY PO Last administered on 12/21/16 08:31; Start at 09:00 Morphine Sulfate (Morphine Inj) 2 mg Q2H PRN IV PUSH pain 5-10 Last administered on 12/17/16 01:20; Start 12/05/16 at 10:30; Stop 12/17/16 at 10:52; Status DC Albuterol/ Ipratropium 1 ampule 1 ampule Q4HR NEB NEB Last administered on 03:40; Start 12/06/16 at 08:00; Stop 12/10/16 at 08:00; Status DC Sodium Chloride (1/2 NS 1000 ml Inj) 1,000 ml @ 125 mls/hr Q8H IV Last administered on 12/07/16 21:33; Start 12/06/16 at 07:30; Stop 12/08/16 at 10:23 ; Status DC Rifampin 300 mg 300 mg Q12HR PO Last administered on 12/21/16 08:29; Start at 09:15; Stop 01/15/17 at 23:00 Cefazolin Sodium/ Dextrose (Ancef 2 Gm Premix) 50 ml @ 100 mls/hr Q8H IV Last administered on 12/21/16 02:00; Start 12/06/16 at 10:00; Stop 01/15/17 at 23:00 Levofloxacin (Levaquin) 750 mg Q24H PO Last administered on 12/12/16 08:58; Start 12/06/16 at 10:00; Stop 12/13/16 at 09:59; Status DC Insulin Detemir (Levemir Inj) 5 units Q12HR SQ Last administered on 12/13/16 21:29; Start 12/07/16 at 09:00; Stop 12/14/16 at 08:17; Status DC Methylnaltrexone Slinger (Relistor Inj) 12 mg ONCE ONCE SQ Last administered on 12/07/16 16:58; Start 12/07/16 at 15:00; Stop 12/07/16 at 15:11; Status DC Metoprolol Tartrate (Lopressor Inj) 2.5 mg ONCE ONCE IV PUSH Last administered on 12/08/16 15:15; Start 12/08/16 at 15:00; Stop 12/08/16 at 15:01 ; Status DC Diltiazem HCl (Cardizem Inj) 10 mg ONCE ONCE IV ; Start 12/08/16 at 15:15; Stop 12/08/16 at 16:09; Status DC Metoprolol Tartrate (Lopressor) 50 mg Q12HR PO Last administered on 12/13/16 20:52; Start 12/08/16 at 21:00; Stop 12/14/16 at 09:12; Status DC Diltiazem HCl (Cardizem) 60 mg Q6H PO Last administered on 12/18/16 17:25; Start 12/09/16 at 05:00; Stop 12/18/16 at 18:39; Status DC Lorazepam (Ativan Inj) 1 mg Q4H PRN IV PUSH ANXIETY AND/OR AGITATION Last administered on 12/19/16 01:59; Start 12/09/16 at 15:15 Haloperidol Lactate (Haldol Inj) 2 mg Q8H PRN IM AGITATION AND/OR HALLUCINATION ; Start 12/10/16 at 17:00 Methylprednisolone Sodium Succinate (SoluMEDROL INJ) 20 mg Q12HR IV PUSH Last administered on 12/13/16 20:50; Start 12/11/16 at 21:00; Stop 12/13/16 at 22:00 ; Status DC Atorvastatin Calcium (Lipitor) 40 mg HS PO Last administered on 12/20/16 20:44 ; Start 12/12/16 at 21:00 Sodium Chloride (NS Flush) See Protocol DAILY IV FLUSH Last administered on 12/19 08:34; Start 12/13/16 at 09:00 Sodium Chloride (NS Flush) See Protocol UNSCH PRN IV FLUSH SEE PROTOCOL TABLE; Start 12/12/16 at 17:00 Heparin Sodium (Porcine) (Heparin Central Flush) See Protocol DAILY IV FLUSH Last administered on 12/19/16 08:34; Start 12/13/16 at 09:00 Heparin Sodium (Porcine) (Heparin Central Flush) See Protocol UNSCH PRN IV FLUSH SEE PROTOCOL TABLE; Start 12/12/16 at 17:00 Sodium Chloride UNSCH PRN IV FLUSH SEE PROTOCOL TABLE Last administered on 12/19 01:59; Start 12/12/16 at 17:00 Sodium Chloride (NS 250 ml Inj) 250 ml @ 15 mls/hr ONCE ONCE IV Last administered on 12/13/16 09:34; Start 12/13/16 at 08:15; Stop 12/14/16 at 00:54 ; Status DC Acetaminophen (Tylenol) 650 mg Q4H PRN PO SEE LABEL COMMENTS; Start 12/13/16 at 08:15; Stop 12/13/16 at 12:16; Status DC Diphenhydramine HCl (Benadryl) 25 mg Q4H PRN PO SEE LABEL COMMENTS; Start 12/13 at 08:15; Stop 12/13/16 at 12:16; Status Cancel Prednisone (Deltasone) 40 mg DAILY PO Last administered on 12/16/16 08:53; Start 12/14/16 at 09:00; Stop 12/16/16 at 09:28; Status DC Pantoprazole Sodium (Protonix) 40 mg Q12HR PO Last administered on 12/21/16 08: 30; Start 12/13/16 at 09:00 Diphenhydramine HCl (Benadryl) 25 mg Q4H PRN PO SEE LABEL COMMENTS; Start 12/13 at 17:15; Stop 12/13/16 at 21:16; Status DC Insulin Aspart (NovoLOG SUPPLEMENTAL SCALE) 1 ACHS SLIDING SCALE SQ Last administered on 12/21/16 05:52; Start 12/14/16 at 11:00 Insulin Detemir (Levemir Inj) 6 units Q12HR SQ Last administered on 12/21/16 08 :32; Start 12/14/16 at 09:00 Metoprolol Tartrate (Lopressor) 75 mg Q12HR PO Last administered on 12/14/16 12:00; Start 12/14/16 at 12:00; Stop 12/14/16 at 16:10; Status DC Etomidate (Amidate Inj) 25 mg ONCE ONCE IVP ; Start 12/14/16 at 12:15; Stop at 18:48; Status DC Fentanyl Citrate (fentaNYL INJ) 200 mcg ONCE ONCE IV ; Start 12/14/16 at 12:15 ; Stop 12/14/16 at 18:48; Status DC Succinylcholine Chloride (Quelicin Inj) 150 mg ONCE ONCE IV ; Start 12/14/16 at 12:15; Stop 12/14/16 at 18:48; Status DC Metoprolol Tartrate (Lopressor) 100 mg Q12HR PO Last administered on 12/21/16 08:28; Start 12/14/16 at 21:00 Metoprolol Tartrate 25 mg 25 mg ONCE ONCE PO Last administered on 12/14/16 16 :55; Start 12/14/16 at 16:15; Stop 12/14/16 at 16:16; Status DC Iron Sucrose/ Sodium Chloride (Venofer Inj/NS Inj) 105 ml @ 105 mls/hr DAILY IV Last administered on 12/18/16 08:01; Start 12/16/16 at 09:00; Stop 12/18/16 at 09:59; Status DC Nitroglycerin (Nitrostat Sl) 0.4 mg Q5M PRN SL CHEST PAIN; Start 12/16/16 at 00: 15 Prednisone (Deltasone) 20 mg DAILY PO Last administered on 12/20/16 09:04; Start 12/17/16 at 09:00; Stop 12/20/16 at 10:01; Status DC Gadodiamide (Omniscan Pf Inj) 21 ml STK-MED ONCE IV Last administered on 15:41; Start 12/17/16 at 15:41; Stop 12/17/16 at 15:42; Status DC Oxycodone HCl (Roxicodone) 10 mg Q4H PRN PO PAIN 6-10 Last administered on 04:52; Start 12/17/16 at 19:00 Diltiazem HCl (Cardizem Inj) 20 mg ONCE PRN IV if HR 110-130 Last administered on 12/17/16 21:49; Start 12/17/16 at 21:30; Stop 12/17/16 at 22:30; Status DC Diltiazem HCl 20 mg 20 mg ONCE ONCE IVP ; Start 12/17/16 at 21:30; Stop 12/17/16 at 21:40; Status DC Diltiazem HCl/ Sodium Chloride (Cardizem Inj/NS Inj) 125 ml @ 0 mls/hr TITRATE IV Last administered on 12/17/16 22:12; Start 12/17/16 at 21:30; Stop 12/19/16 at 18:12; Status DC Lorazepam (Ativan) 0.5 mg DAILY PRN PO ANXIETY Last administered on 12/19/16 08 :29; Start 12/18/16 at 15:45 Diltiazem HCl (Cardizem) 90 mg Q6H PO Last administered on 12/21/16 04:52; Start 12/18/16 at 23:00 Diltiazem HCl (Cardizem) 30 mg NOW ONCE PO Last administered on 12/18/16 19:33 ; Start 12/18/16 at 19:30; Stop 12/18/16 at 19:31; Status DC Diltiazem HCl (Cardizem Inj) 10 mg NOW ONCE IV Last administered on 12/18/16 19:32; Start 12/18/16 at 19:30; Stop 12/18/16 at 19:31; Status DC Alteplase, Recombinant (Cathflo Activase Inj) 2 mg UNSCH X1 IV FLUSH ; Start at 19:45; Stop 12/18/16 at 23:00; Status DC Metoprolol Tartrate (Lopressor Inj) 5 mg ONCE ONCE IV PUSH Last administered on 12/19/16 05:40; Start 12/19/16 at 05:30; Stop 12/19/16 at 05:31; Status DC Digoxin (Lanoxin Inj) 0.5 mg NOW STAT IVS Last administered on 12/19/16 17:19 ; Start 12/19/16 at 16:51; Stop 12/19/16 at 17:04; Status DC Digoxin (Lanoxin Inj) 0.25 mg Q6H IVS Last administered on 12/20/16 03:54; Start 12/19/16 at 23:00; Stop 12/20/16 at 05:01; Status DC Digoxin (Lanoxin) 0.125 mg DAILY PO Last administered on 12/21/16 08:29; Start 12/20/16 at 09:00 Furosemide (Lasix Inj) 20 mg ONCE ONCE IV PUSH Last administered on 12/19/16 18:12; Start 12/19/16 at 17:45; Stop 12/19/16 at 17:46; Status DC Potassium Bicarb/ Potassium Chloride 25 meq 25 meq ONCE ONCE PO Last administered on 12/19/16 18:12; Start 12/19/16 at 17:45; Stop 12/19/16 at 17:46; Status DC Diltiazem HCl/ Sodium Chloride (Cardizem Inj/NS Inj) 125 ml @ 0 mls/hr TITRATE IV Last administered on 12/20/16 16:40; Start 12/19/16 at 18:15 Diltiazem HCl (Cardizem Inj) 18 mg NOW ONCE IV Last administered on 12/19/16 19:29; Start 12/19/16 at 18:15; Stop 12/19/16 at 18:16; Status DC Apixaban (Eliquis) 5 mg BID PO ; Start 12/20/16 at 10:00; Stop 12/20/16 at 10:00; Status DC Apixaban (Eliquis) 5 mg BID PO Last administered on 12/21/16 08:29; Start at 10:00 Diltiazem HCl (Cardizem Inj) 10 mg ONCE ONCE IV ; Start 12/20/16 at 09:30; Stop 12/20/16 at 09:31; Status DC Prednisone (Deltasone) 10 mg DAILY PO Last administered on 12/21/16 08:30; Start 12/21/16 at 09:00 Atropine Sulfate (Atropine Inj) 1 mg STK-MED ONCE .ROUTE ; Start 12/20/16 at 12: 45; Stop 12/20/16 at 12:46; Status DC Epinephrine HCl (EPINEPHrine (1:10,000) INJ) 1 mg STK-MED ONCE .ROUTE ; Start at 12:45; Stop 12/20/16 at 12:46; Status DC Acetaminophen (Tylenol) 650 mg ONCE ONCE PO Last administered on 12/20/16 18: 39; Start 12/20/16 at 18:45; Stop 12/20/16 at 18:46; Status DC Diphenhydramine HCl (Benadryl) 25 mg ONCE ONCE PO Last administered on 18:39; Start 12/20/16 at 18:45; Stop 12/20/16 at 18:46; Status DC Calcium Carbonate (Tums Chew) 500 mg ONCE ONCE CHEW Last administered on t 00:45; Start 12/21/16 at 00:45; Stop 12/21/16 at 00:46; Status DC Calcium Carbonate (Tums Chew) 500 mg ONCE ONCE CHEW Last administered on t 04:52; Start 12/21/16 at 05:00; Stop 12/21/16 at 05:01; Status DC A/P Assessment and Plan A/P -Septic shock-resolved -MSSA bacteremia -Fiiwol-x-Gast infection - s/p removal of [id number] by GS. Dressing changes per GS. Appreciate assistance. - Catheter tip culture blood culture and wound culture also positive for MSSA - Continue abx per ID, on IV Ancef, po Rifampin x 6 weeks from port removal and (completed course of Levaquin PO on 12/13). LFTs 12/15/16 wnl, continue antibiotics/Ancef until 01/15/17. -Acute metabolic encephalopathy- resolved -Agitation - Encephalopathy most likely secondary to severe sepsis - Continue Thiamine, MVI, folic acid. -Acute hypoxemic respiratory failure -Acute COPD exacerbation -Tobacco abuse - Emergently intubated and placed on mechanical ventilation 12/02/16, extubated successfully 12/03/16 - Continue with oxygen keep sat >92% - continue neb treatment - s/p IV Solu-Medrol , continue to taper down prednisone. -NSTEMI -atrial fibrillation- difficult to control - s/p PCI to LCx by Dr. Krause on 11/30/16 - Continue ASA/Plavix/metoprolol,cardizem and statin. - Metoprolol was increased to 100 mg twice a day -continue po cardizem.digoxin and eliquis were added- might need ablation-cardiology following. -IV lopressor prn- -continue to monitor and adjust the regimen as needed. 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 Will need EUS however per GI can be done as an outpatient. - GI reconsulted for worsening dysphagia - on Protonix - Oncology following. He will need weekly Erbitux and XRT outpatient. - Status post surgical resection for L parotid SCC. plan for chemo and radiation per oncology. -Anemia Hb now stable at 8.5, s/p 1unit PRBC. Per heme/onc recs, transfuse if Hb<8. Monitor H&H. -Diabetes -Hypothyroidism - SSI ( medium scale) and Levemir 6 units BID for glycemic control. Monitor BS . -blood sugar levels expected to improve as steroid is being tapered off. - Continue thyroid supplementation -PROPH: - Bilateral lower extremity SCDs. - started on Eliquis- -continue PPI Zamzam Kim MD Dec 21, 2016 08:56
--- NOTE | 2016-12-21 09:56 | HHI.GIFU ---
Subjective Remarks GI reconsulted for worsening dysphagia. Patient states increased difficulty swallowing after Barium swallow was completed on 12/20/16. Having trouble swallowing liquid, food, and his medication. RN reports he has been spitting up a "frothy orange" substance. No blood noted. (Mery Robles) Objective Vitals I&O Vital Signs Date Time Temp Pulse Resp B/P Pulse Ox O2 Delivery O2 Flow Rate FiO2 12/21/16 07:29 97.9 134 19 108/68 99 12/21/16 06:00 120 12/21/16 05:00 110 12/21/16 04:00 116 16 122/78 100 12/21/16 04:00 117 12/21/16 03:00 96 12/21/16 02:00 104 12/21/16 01:00 104 12/21/16 00:00 81 16 112/66 100 12/21/16 00:00 101 12/20/16 23:00 76 12/20/16 22:00 72 12/20/16 21:15 97.9 98 16 120/66 98 12/20/16 21:00 104 12/20/16 20:00 98.1 104 16 104/65 100 12/20/16 20:00 100 12/20/16 19:45 98 Nasal Cannula 2.00 12/20/16 19:15 98.0 109 16 117/73 98 12/20/16 19:00 106 12/20/16 18:55 98.4 110 17 120/66 98 12/20/16 18:00 116 12/20/16 17:05 118 12/20/16 16:00 128 12/20/16 15:20 97.6 113 17 117/72 100 12/20/16 15:00 97 12/20/16 14:30 98 Nasal Cannula 2.00 12/20/16 14:00 103 12/20/16 13:00 109 12/20/16 12:00 72 12/20/16 11:19 98.1 77 15 113/62 97 12/20/16 11:00 77 12/20/16 10:00 84 I/O 12/20/16 12/20/16 12/20/16 12/21/16 12/21/16 12/21/16 06:59 14:59 22:59 06:59 14:59 22:59 Intake Total 1338 ml 1340 ml 480 ml Output Total 2100 ml 1700 ml 2250 ml Balance -762 ml -360 ml -1770 ml Intake Oral 1181 ml 1000 ml 480 ml IV Total 157 ml 340 ml Output Urine Total 2100 ml 1700 ml 2250 ml # Bowel Movements 1 1 Laboratory Laboratory Tests Test 12/20/16 12/21/16 15:16 04:40 Blood Type O NEGATIVE Antibody Screen NEGATIVE Crossmatch Leukocyte-Reduced Red Blood Cells Blood Bank Comment White Blood Count 5.1 Red Blood Count 3.30 Hemoglobin 9.2 Hematocrit 28.7 Mean Corpuscular Volume 86.9 Mean Corpuscular Hemoglobin 27.9 Mean Corpuscular Hemoglobin 32.1 Concent Red Cell Distribution Width 21.1 Platelet Count 161 Mean Platelet Volume 7.9 Imaging Last Impressions Barium Swallow X-Ray 12/20/16 0000 Signed Impressions: Service Date/Time: Tuesday, December 20, 2016 13:15 - CONCLUSION: 1. The distal half of the esophagus demonstrates irregular luminal narrowing consistent with the patient's history of esophageal adenocarcinoma. 2. Mild dilatation of the esophagus immediately proximal to the esophageal mass. However, there are no signs of obstruction. 3. Small hiatal hernia. Washington Marroquin MD Abdomen MRI 12/17/16 0000 Signed Impressions: Service Date/Time: Saturday, December 17, 2016 13:59 - CONCLUSION: 1. No acute finding is identified to explain the abdominal pain. 2. Stable thickening of the distal esophagus. There is a single mildly enlarged left gastric lymph node measuring 12 x 10 mm. 3. Moderate sized bilateral pleural effusions, left larger than right, with associated compressive atelectasis. Washington Marroquin MD Chest X-Ray 12/12/16 0000 Signed Impressions: Service Date/Time: Monday, December 12, 2016 17:04 - CONCLUSION: Slight CHF and left basilar opacity may be pleural effusion or consolidation. Mali Law MD Head CT 12/01/16 0000 Signed Impressions: Service Date/Time: Thursday, December 01, 2016 07:59 - CONCLUSION: 1. Questionable area of low attenuation left temporal lobe could be artifact versus less likely infarct. MRI may be warranted based on clinical history. 2. No midline shift or mass effect. 3. No intraparenchymal hemorrhage. Jagjit Tapia MD Brain MRI 12/01/16 0000 Signed Impressions: Service Date/Time: Thursday, December 01, 2016 12:07 - CONCLUSION: Normal examination. Barrett Rodriguez MD Abdomen X-Ray 12/01/16 0000 Signed Impressions: Service Date/Time: Thursday, December 01, 2016 16:48 - CONCLUSION: No evidence of obstruction. Feeding tube tip in the distal stomach. Barrett Rodriguez MD Abdomen/Pelvis CT 11/29/16 2356 Signed Impressions: Service Date/Time: Wednesday, November 30, 2016 01:35 - CONCLUSION: 1. Markedly abnormal appearance of the distal esophagus consistent with the history of esophageal carcinoma. 2. Atherosclerotic calcifications of the aorta and iliac vessels. 3. Cirrhotic appearance to the liver with a mildly nodular contour present. Erik Simon MD CT Angiography 11/29/16 [id number] Signed Impressions: Service Date/Time: Wednesday, November 30, 2016 01:35 - CONCLUSION: 1. No evidence for pulmonary embolism or pneumonia. 2. Abnormal appearance of the esophagus with and soft tissue consistent with the history of carcinoma. Erik Simon MD Physical Exam HEENT: Normocephalic; atraumatic; no jaundice. CHEST: CTA CARDIAC: Irregular rhythm. Tachycardic. Systolic murmur heard best at LSB. ABDOMEN: Soft, obese, nondistended, nontender; no hepatosplenomegaly; bowel sounds x 4 EXTREMITIES: Bilateral pedal edema. SKIN: Normal; no rash; no jaundice. OPERATIONS MANAGEMENT TRAINEE: Alert. Agitated and confused. (Mery Robles) Assessment and Plan Plan ASSESSMENT: - Esophageal cancer. PET Scan (10/28/16)----> negative examination of the head and neck, findings characteristic of esophageal neoplasm. S/P EGD/Colonoscopy (11/20/16)----> There was a long stricture i the mid esophagus and distal esophagus, multiple biopsies were performed, the mucosa of the stomach appeared normal, duodenal mucosa showed no abnormalities in the entire duodenum, retroflexed views revealed a small hiatal hernia; nine sessile polyps ranging from 4-12 mm in size were found at the cecum, in the ascending colon, descending colon, sigmoid colon, and rectum; polypectomy was performed using snare cautery, moderate diverticulosis was noted in the left colon, retroflexed views revealed internal grade I hemorrhoids, a digital rectal exam was performed and revealed no abnormalities of the anus. Pathology revealed invasive adenocarcinoma- distal esophagus, descending colon polyp and rectosigmoid polyp both benign hyperplastic colonic polyp, no adenomatous change or malignancy is seen. D/W Oncology, plan is for EUS when more stable. - Dysphagia, worsening since Barium Swallow on 12/[address] following, pureed diet. Barium Swallow X-Ray 12/20/16--1. The distal half of the esophagus demonstrates irregular luminal narrowing consistent with the patient's history of esophageal adenocarcinoma. 2. Mild dilatation of the esophagus immediately proximal to the esophageal mass. However, there are no signs of obstruction. 3. Small hiatal hernia. - Constipation. (+) BM. Miralax - Abnormal imaging of the liver on CT scan, consistent with cirrhosis. Abdomen/ Pelvis CT (11/29/16)----> 1. Markedly abnormal appearance of the distal esophagus consistent with the history of esophageal carcinoma. 2. Atherosclerotic calcifications of the aorta and iliac vessels. 3. Cirrhotic appearance to the liver with a mildly nodular contour present. Abdomen MRI 12/17/16--1. No acute finding is identified to explain the abdominal pain. 2. Stable thickening of the distal esophagus. There is a single mildly enlarged left gastric lymph node measuring 12 x 10 mm. 3. Moderate sized bilateral pleural effusions, left larger than right, with associated compressive atelectasis. Unclear if he has hx of cirrhosis. There is mention of hx of HCV in EMR, but patient has had undetectable viral load as far back as 2001. Pt does report he has a history of HCV and was successfully treated with Interferon/ribavirin in the past. Iron saturation 4.1%, Ferritin 124, Hepatitis C antibodies (+), viral load undetectable, TERRIE negative, ASMA < 20.0, AMA neg, Ceruloplasmin 40 and alpha 1 antitrypsin 298. Labs and imaging consistent with cirrhosis. Pt does not currently drink, but states that he was a heavy drinker in the past. T. Bili 0.6, AST 18, ALT 32, Alk Phosph 91. - Sepsis/Bacteremia/UTI. Urine and Bcx with Staphylococcus aureus. S/P removal of infusaport by GS (12/02). Cefepime - AMS, Acute metabolic encephalopathy. Head CT (12/01/16)-----> 1. Questionable area of low attenuation left temporal lobe could be artifact versus less likely infarct. MRI may be warranted based on clinical history. 2. No midline shift or mass effect. 3. No intraparenchymal hemorrhage. Brain MRI (12/01/16 )----> Normal examination. Lethargic, but awakens and follows commands. Confused. - Resp. Failure. Chest X-Ray (12/05/16)----> 1. Cardiomegaly and findings of vascular congestion without overt failure. There has been no significant change when compared to the prior exam. S/P Extubation on 12/03. cedric Carrillo, - NSTEMI, CAD. S/P left heart catheterization (11/30/16) with Dr. Murillo and this revealed RCA 10% lesion mid segment, mild calcifications left main, LAD with calcification from it's proximal segment to its midsegment however, with no significant obstructive lesions, The LAD is giving off to a diagonal which has a 70% lesion in its ostial segment, left circumflex artery with a proximal clot thrombus, S/P percutaneous coronary intervention/bare metal stent to proximal left circumflex. ASA and Plavix, as well as aggressive optimization of coronary artery disease. 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 S/P mohs surgery by a detective captain in September of 2015 and shortly after this, developed a mass near the surgical area. S/P at [facility] with Dr. Valdovinos in June of 2016----> underwent extensive head and neck surgery involving a parotidectomy and radical neck dissection in September of 2016. Because of high risk features of local recurrence with perineural invasion and positive margins, it was recommended that he have concurrent chemoradiation therapy. He was evaluated by Dr. Cross for radiation and seen by Dr. Bell for oncology. PET Scan ()----> negative examination of the head and neck, findings characteristic of esophageal neoplasm. Direct visualization is recommended. - Hx HTN, Hyperlipidemia, DM. per attending. PLAN: - Pureed diet, per ST - EUS when more stable - Cont. PPI - Cont. Miralax - Monitor labs - Supportive care - Further recommendations to follow based on results of above Patient seen and examined by Dr. Kelly and myself and this note is written on her behalf (Mery Robles) Physician Comments seen, examined agree with above discussed about eus /possible stent ? we will schedule eus next week once more stable has papers from [place] -oncology to review (Mai Kelly MD) Mery Robles Dec 21, 2016 09:56 Mai Kelly MD Dec 21, 2016 16:06
--- NOTE | 2016-12-21 11:35 | PD.CARD.PN ---
Subjective Subjective Remarks No complaints, improved rates but still on ggt. Objective Medications Administered Medications Medications (Trade) Dose Ordered Sig/Geovanny Route PRN Reason Start Time Stop Time Status Last Admin Dose Admin Sodium Chloride (NS Flush) 2 ml UNSCH PRN IV FLUSH FLUSH AFTER USING IV ACCESS 11/30/16 02:45 12/01/16 21:53 Sodium Chloride (NS Flush) 2 ml BID IV FLUSH 11/30/16 09:00 12/21/16 08:32 Oxycodone HCl (Roxicodone) 5 mg Q4H PRN PO PAIN SCALE 3 TO 5 11/30/16 02:45 12/17/16 15:47 Senna/Docusate Sodium (Rere-Colace) 1 tab BID PO 11/30/16 09:00 12/21/16 08:28 Acetaminophen (Tylenol) 325 mg Q4H PRN PO PAIN SCALE 1 TO 2 11/30/16 13:45 12/13/16 17:13 Aspirin (Aspirin Chew) 81 mg DAILY PO 11/30/16 13:45 12/21/16 08:29 Clopidogrel Bisulfate (Plavix) 75 mg DAILY PO 12/01/16 09:00 12/21/16 08:29 Ondansetron HCl (Zofran Inj) 4 mg Q4H PRN IV NAUSEA 11/30/16 13:45 12/05/16 22:06 Sodium Chloride (NS Flush) 5 ml Q21D IV FLUSH 11/30/16 18:00 11/30/16 18:00 Heparin Sodium (Porcine) (Heparin Central Flush) 500 units Q21D IV FLUSH 11/30/16 18:00 11/30/16 18:04 Acetaminophen (Tylenol 650 Mg/ 20 ml Liq) 650 mg Q6H PRN PO FEVER 12/01/16 17:30 12/02/16 01:07 Chlorhexidine Gluconate (Peridex 0.12% Liq) 15 ml BID@08,20 MT 12/02/16 08:00 12/15/16 08:00 Metoprolol Tartrate (Lopressor Inj) 2.5 mg Q6H PRN IV PUSH HR >110 12/02/16 08:15 12/20/16 18:38 Polyethylene Glycol (Miralax) 17 gm DAILY PO 12/04/16 09:00 12/21/16 08:28 Thiamine HCl (Vitamin B1) 100 mg DAILY PO 12/05/16 09:00 12/21/16 08:30 Multivitamins (Theragran) 1 tab DAILY PO 12/05/16 09:00 12/21/16 08:28 Folic Acid (Folate) 1 mg DAILY PO 12/05/16 09:00 12/21/16 08:31 Rifampin 300 mg 300 mg Q12HR PO 12/06/16 09:15 01/15/17 23:00 12/21/16 08:29 Cefazolin Sodium/ Dextrose (Ancef 2 Gm Premix) 50 ml @ 100 mls/hr Q8H IV 12/06/16 10:00 01/15/17 23:00 12/21/16 02:00 Lorazepam (Ativan Inj) 1 mg Q4H PRN IV PUSH ANXIETY AND/OR AGITATION 12/09/16 15:15 12/19/16 01:59 Atorvastatin Calcium (Lipitor) 40 mg HS PO 12/12/16 21:00 12/20/16 20:44 Sodium Chloride (NS Flush) See Protocol DAILY IV FLUSH 12/13/16 09:00 12/19/16 08:34 Heparin Sodium (Porcine) (Heparin Central Flush) See Protocol DAILY IV FLUSH 12/13/16 09:00 12/19/16 08:34 Sodium Chloride (NS Flush) UNSCH PRN IV FLUSH SEE PROTOCOL TABLE 12/12/16 17:00 12/19/16 01:59 Pantoprazole Sodium (Protonix) 40 mg Q12HR PO 12/13/16 09:00 12/21/16 08:30 Insulin Detemir (Levemir Inj) 6 units Q12HR SQ 12/14/16 09:00 12/21/16 08:32 Metoprolol Tartrate (Lopressor) 100 mg Q12HR PO 12/14/16 21:00 12/21/16 08:28 Lorazepam (Ativan) 0.5 mg DAILY PRN PO ANXIETY 12/18/16 15:45 12/19/16 08:29 Diltiazem HCl (Cardizem) 90 mg Q6H PO 12/18/16 23:00 12/21/16 04:52 Digoxin 0.125 mg 0.125 mg DAILY PO 12/20/16 09:00 12/21/16 08:29 Diltiazem HCl/ Sodium Chloride (Cardizem Inj/NS Inj) 125 ml @ 0 mls/hr TITRATE IV 12/19/16 18:15 12/20/16 16:40 Apixaban (Eliquis) 5 mg BID PO 12/20/16 10:00 12/21/16 08:29 Prednisone (Deltasone) 10 mg DAILY PO 12/21/16 09:00 12/21/16 08:30 Oxycodone HCl (Roxicodone) 15 mg Q4H PRN PO PAIN 6-10 12/21/16 11:00 12/21/16 09:27 Vital Signs / I&O Vital Signs Date Time Temp Pulse Resp B/P Pulse Ox O2 Delivery O2 Flow Rate FiO2 12/21/16 10:00 106 12/21/16 08:00 99 Nasal Cannula 2.00 12/21/16 07:29 97.9 134 19 108/68 99 12/21/16 07:00 113 12/21/16 06:00 120 12/21/16 05:00 110 12/21/16 04:00 116 16 122/78 100 12/21/16 04:00 117 12/21/16 03:00 96 12/21/16 02:00 104 12/21/16 01:00 104 12/21/16 00:00 81 16 112/66 100 12/21/16 00:00 101 12/20/16 23:00 76 12/20/16 22:00 72 12/20/16 21:15 97.9 98 16 120/66 98 12/20/16 21:00 104 12/20/16 20:00 98.1 104 16 104/65 100 12/20/16 20:00 100 12/20/16 19:45 98 Nasal Cannula 2.00 12/20/16 19:15 98.0 109 16 117/73 98 12/20/16 19:00 106 12/20/16 18:55 98.4 110 17 120/66 98 12/20/16 18:00 116 12/20/16 17:05 118 12/20/16 16:00 128 12/20/16 15:20 97.6 113 17 117/72 100 12/20/16 15:00 97 12/20/16 14:30 98 Nasal Cannula 2.00 12/20/16 14:00 103 12/20/16 13:00 109 12/20/16 12:00 72 I/O 12/20/16 12/20/16 12/20/16 12/21/16 12/21/16 12/21/16 07:00 15:00 23:00 07:00 15:00 23:00 Intake Total 1338 ml 1340 ml 480 ml Output Total 2100 ml 1700 ml 2250 ml Balance -762 ml -360 ml -1770 ml Intake Oral 1181 ml 1000 ml 480 ml IV Total 157 ml 340 ml Output Urine Total 2100 ml 1700 ml 2250 ml # Bowel Movements 1 1 Physical Exam GENERAL: This is a well-nourished, well-developed patient, in no apparent distress. CARDIOVASCULAR: regular rate and irregular rhythm without murmurs, gallops, or rubs. RESPIRATORY: Clear to auscultation. Breath sounds equal bilaterally. No wheezes , rales, or rhonchi. GASTROINTESTINAL: Abdomen soft, non-tender, nondistended. Normal, active bowel sounds MUSCULOSKELETAL: Extremities without clubbing, cyanosis, or edema. NEURO: Alert & Oriented x4 to person, place, time, situation. Moves all ext x4 Laboratory Laboratory Tests Test 12/20/16 12/21/16 15:16 04:40 Blood Type O NEGATIVE Antibody Screen NEGATIVE Crossmatch Leukocyte-Reduced Red Blood Cells Blood Bank Comment White Blood Count 5.1 TH/MM3 Red Blood Count 3.30 MIL/MM3 Hemoglobin 9.2 GM/DL Hematocrit 28.7 % Mean Corpuscular Volume 86.9 FL Mean Corpuscular Hemoglobin 27.9 PG Mean Corpuscular Hemoglobin 32.1 % Concent Red Cell Distribution Width 21.1 % Platelet Count 161 TH/MM3 Mean Platelet Volume 7.9 FL Imaging Last Impressions Barium Swallow X-Ray 12/20/16 0000 Signed Impressions: Service Date/Time: Tuesday, December 20, 2016 13:15 - CONCLUSION: 1. The distal half of the esophagus demonstrates irregular luminal narrowing consistent with the patient's history of esophageal adenocarcinoma. 2. Mild dilatation of the esophagus immediately proximal to the esophageal mass. However, there are no signs of obstruction. 3. Small hiatal hernia. Washington Marroquin MD Abdomen MRI 12/17/16 0000 Signed Impressions: Service Date/Time: Saturday, December 17, 2016 13:59 - CONCLUSION: 1. No acute finding is identified to explain the abdominal pain. 2. Stable thickening of the distal esophagus. There is a single mildly enlarged left gastric lymph node measuring 12 x 10 mm. 3. Moderate sized bilateral pleural effusions, left larger than right, with associated compressive atelectasis. Washington Marroquin MD Chest X-Ray 12/12/16 0000 Signed Impressions: Service Date/Time: Monday, December 12, 2016 17:04 - CONCLUSION: Slight CHF and left basilar opacity may be pleural effusion or consolidation. Mali Law MD Head CT 12/01/16 0000 Signed Impressions: Service Date/Time: Thursday, December 01, 2016 07:59 - CONCLUSION: 1. Questionable area of low attenuation left temporal lobe could be artifact versus less likely infarct. MRI may be warranted based on clinical history. 2. No midline shift or mass effect. 3. No intraparenchymal hemorrhage. Jagjit Tapia MD Brain MRI 12/01/16 0000 Signed Impressions: Service Date/Time: Thursday, December 01, 2016 12:07 - CONCLUSION: Normal examination. Barrett Rodriguez MD Abdomen X-Ray 12/01/16 0000 Signed Impressions: Service Date/Time: Thursday, December 01, 2016 16:48 - CONCLUSION: No evidence of obstruction. Feeding tube tip in the distal stomach. Barrett Rodriguez MD Abdomen/Pelvis CT 11/29/16 [id number] Signed Impressions: Service Date/Time: Wednesday, November 30, 2016 01:35 - CONCLUSION: 1. Markedly abnormal appearance of the distal esophagus consistent with the history of esophageal carcinoma. 2. Atherosclerotic calcifications of the aorta and iliac vessels. 3. Cirrhotic appearance to the liver with a mildly nodular contour present. Erik Simon MD CT Angiography 11/29/16 [id number] Signed Impressions: Service Date/Time: Wednesday, November 30, 2016 01:35 - CONCLUSION: 1. No evidence for pulmonary embolism or pneumonia. 2. Abnormal appearance of the esophagus with and soft tissue consistent with the history of carcinoma. Erik Simon MD Assessment and Plan Problem List: (1) NSTEMI (non-ST elevated myocardial infarction) Assessment and Plan: s/p PCI to LCx; continue asa/stain/plavix (2) SCC (squamous cell carcinoma) (3) Parotid mass (4) Hypertension (5) Rapid atrial fibrillation Assessment and Plan: On cardizem ggt, increased PO dilt, digoxin; added eliquis ; may require ablation as rates have been difficult Luis Enrique Quinonez MD Dec 21, 2016 11:35
[2016-12-21] MEDS ORDERED: DIGOXIN 0.5 MG/2 ML VIAL IVS STA (11:49)
[2016-12-21] MEDS: DIGOXIN 0.5 MG/2 ML VIAL IVS SCH (17:19)
[2016-12-21] MEDS: DILTIAZEM 125 MG/NS 100 ML IV SCH ×2 (17:20)
[2016-12-21] MEDS: ATORVASTATIN 40 MG TAB PO SCH (21:02)
[2016-12-22] VITALS (30 sets, daily range): BP systolic 114–122; BP diastolic 63–72; PULSE 84–146; RESP 18–24; TEMP 98.1–98.9; O2SAT 94–100
[2016-12-22] MEDS: DIGOXIN 0.5 MG/2 ML VIAL IVS SCH
[2016-12-22] MEDS ORDERED: CALCIUM CARBONATE 500 MG CHEWABLE TAB CHEW ONE (01:00)
[2016-12-22 02:01] LABS: BASOPHIL % 0.3 % (0.0-2.0); EOSINOPHIL # 0.1 TH/MM3 (0-0.4); HEMATOCRIT 28.4 % (39.0-51.0); HEMO FLAGS DIFF FINAL; LYMPH % 13.3 % (9.0-44.0); LYMPHOCYTE # 0.7 TH/MM3 (1.0-4.8); MEAN CORPUSCULAR HEMOGLOBIN 27.7 PG (27.0-34.0); MEAN CORPUSCULAR HGB CONC 31.9 % (32.0-36.0); NEUT % 71.4 % (16.0-70.0); PLATELET COUNT 172 TH/MM3 (150-450); RED BLOOD COUNT 3.26 MIL/MM3 (4.50-5.90); RED CELL DISTRIBUTION WIDTH 21.1 % (11.6-17.2); WHITE BLOOD COUNT 5.6 TH/MM3 (4.0-11.0)
[2016-12-22] MEDS: DILTIAZEM HCL 90 MG TAB PO SCH ×6 (02:36→22:17)
[2016-12-22] MEDS: ceFAZolin 2 GM PREMIX 50 ML IV SCH ×3 (02:42→16:58)
[2016-12-22] MEDS: INSULIN ASPART SUPPLEMENTAL SCALE SQ SCH ×4 (06:08→21:15)
--- NOTE | 2016-12-22 08:20 | HHI.PR ---
Subjective Remarks Pt has been spitting up blood since last night. pt tells me that he is unable to swallow any food or his pills. has pain w swallowing. RN confirms pt has been spitting up blood. Pt is due for his eliquis Objective Vitals Vital Signs Date Time Temp Pulse Resp B/P Pulse Ox O2 Delivery O2 Flow Rate FiO2 12/22/16 06:00 119 12/22/16 05:00 114 12/22/16 04:56 98.1 116 18 114/70 97 12/22/16 04:00 122 12/22/16 03:00 114 12/22/16 02:00 122 12/22/16 01:13 98.4 111 18 122/67 98 12/22/16 01:00 106 12/22/16 00:00 84 12/21/16 23:00 86 12/21/16 22:04 Nasal Cannula 1.00 12/21/16 22:00 112 12/21/16 21:24 97.8 146 18 116/69 99 12/21/16 21:00 138 12/21/16 20:55 99 Nasal Cannula 2.00 12/21/16 20:00 140 12/21/16 19:00 127 12/21/16 18:00 133 12/21/16 17:00 105 12/21/16 16:00 91 12/21/16 15:00 98.2 114 20 120/67 98 12/21/16 15:00 79 12/21/16 14:00 110 12/21/16 13:00 103 12/21/16 12:00 115 12/21/16 11:00 98.1 108 18 107/65 99 12/21/16 10:00 106 I/O 12/21/16 12/21/16 12/21/16 12/22/16 12/22/16 12/22/16 07:00 15:00 23:00 07:00 15:00 23:00 Intake Total 480 ml 940 ml 680 ml Output Total 2250 ml 750 ml 780 ml Balance -1770 ml 190 ml -100 ml Intake Oral 480 ml 740 ml 480 ml IV Total 200 ml 200 ml Output Urine Total 2250 ml 750 ml 550 ml Estimated Blood Loss 230 ml # Bowel Movements 1 1 0 Result Diagram: 12/22/16 0135 12/20/16 0500 Imaging Last Impressions Barium Swallow X-Ray 12/20/16 0000 Signed Impressions: Service Date/Time: Tuesday, December 20, 2016 13:15 - CONCLUSION: 1. The distal half of the esophagus demonstrates irregular luminal narrowing consistent with the patient's history of esophageal adenocarcinoma. 2. Mild dilatation of the esophagus immediately proximal to the esophageal mass. However, there are no signs of obstruction. 3. Small hiatal hernia. Washington Marroquin MD Abdomen MRI 12/17/16 0000 Signed Impressions: Service Date/Time: Saturday, December 17, 2016 13:59 - CONCLUSION: 1. No acute finding is identified to explain the abdominal pain. 2. Stable thickening of the distal esophagus. There is a single mildly enlarged left gastric lymph node measuring 12 x 10 mm. 3. Moderate sized bilateral pleural effusions, left larger than right, with associated compressive atelectasis. Washington Marroquin MD Chest X-Ray 12/12/16 0000 Signed Impressions: Service Date/Time: Monday, December 12, 2016 17:04 - CONCLUSION: Slight CHF and left basilar opacity may be pleural effusion or consolidation. Mali Law MD Head CT 12/01/16 0000 Signed Impressions: Service Date/Time: Thursday, December 01, 2016 07:59 - CONCLUSION: 1. Questionable area of low attenuation left temporal lobe could be artifact versus less likely infarct. MRI may be warranted based on clinical history. 2. No midline shift or mass effect. 3. No intraparenchymal hemorrhage. Jagjit Tapia MD Brain MRI 12/01/16 0000 Signed Impressions: Service Date/Time: Thursday, December 01, 2016 12:07 - CONCLUSION: Normal examination. Barrett Rodriguez MD Abdomen X-Ray 12/01/16 0000 Signed Impressions: Service Date/Time: Thursday, December 01, 2016 16:48 - CONCLUSION: No evidence of obstruction. Feeding tube tip in the distal stomach. Barrett Rodriguez MD Abdomen/Pelvis CT 11/29/16 [id number] Signed Impressions: Service Date/Time: Wednesday, November 30, 2016 01:35 - CONCLUSION: 1. Markedly abnormal appearance of the distal esophagus consistent with the history of esophageal carcinoma. 2. Atherosclerotic calcifications of the aorta and iliac vessels. 3. Cirrhotic appearance to the liver with a mildly nodular contour present. Erik A. Alfred, MD CT Angiography 11/29/16 [id number] Signed Impressions: Service Date/Time: Wednesday, November 30, 2016 01:35 - CONCLUSION: 1. No evidence for pulmonary embolism or pneumonia. 2. Abnormal appearance of the esophagus with and soft tissue consistent with the history of carcinoma. Erik Simon MD Objective Remarks GENERAL: sitting on side of bed, appears uncomfortable CARDIOVASCULAR: tachycardic ? irregular w 2/6 murmur. RESPIRATORY: Clear to auscultation. Breath sounds equal bilaterally. No wheezes GASTROINTESTINAL: Abdomen soft, non-tender, nondistended. MUSCULOSKELETAL: sitting up on side of bed, able to move his upper extremities. NEURO: awake, alert , answers questions PSYCH: calm, pleasant. not agitated Procedures central line/ arterial line placement intubation cardiac catheterization port removal A/P Problem List: (1) Intractable abdominal pain ICD Code: R10.9 Status: Acute (2) Esophageal carcinoma ICD Code: C15.9 Status: Acute (3) SCC (squamous cell carcinoma) ICD Code: C44.92 Status: Acute (4) Hypokalemia ICD Code: E87.6 Status: Acute (5) Lactic acidosis ICD Code: E87.2 Status: Acute (6) Renal insufficiency ICD Code: N28.9 Status: Acute (7) Elevated troponin ICD Code: R74.8 Status: Acute (8) DM (diabetes mellitus) ICD Code: E11.9 Status: Acute (9) Tobacco abuse ICD Code: Z72.0 Status: Acute (10) NSTEMI (non-ST elevated myocardial infarction) ICD Code: I21.4 Status: Acute (11) Bacteremia due to Gram-positive bacteria ICD Code: R78.81 Status: Acute (12) Encephalopathy, metabolic ICD Code: G93.41 Status: Acute Assessment and Plan A/P -Septic shock-resolved -MSSA bacteremia -Efecyo-x-Urnm infection - s/p removal of [id number] by GS. Dressing changes per GS. Appreciate assistance. - Catheter tip culture blood culture and wound culture also positive for MSSA - Continue abx per ID, on IV Ancef, po Rifampin x 6 weeks from port removal and (completed course of Levaquin PO on 12/13). LFTs 7/31/17 wnl, continue antibiotics/Ancef until 01/15/17. -Acute metabolic encephalopathy- resolved -Agitation - Encephalopathy most likely secondary to severe sepsis - Continue Thiamine, MVI, folic acid. worsening dysphagia w Hemoptysis? vs upper GI bleed. GI aware and following. Pt will need EUS w ? stent placement hold eliquis and start heparin gtt as pt is in afib w RVR, having trouble controlling HR. hold ASA due to bleed however will wait for cards for ok to hold plavix as well. monitor H&H q6hrs. Stat Hb now. I have notified both GI and cards. -Acute hypoxemic respiratory failure -Acute COPD exacerbation -Tobacco abuse - Emergently intubated and placed on mechanical ventilation 12/02/16, extubated successfully 12/03/16 - Continue with oxygen keep sat >92% - continue neb treatment - s/p IV Solu-Medrol , continue to taper down prednisone. -NSTEMI -atrial fibrillation- difficult to control. still on cardizem gtt. meds being adjusted by cards. - s/p PCI to LCx by Dr. Krause on 11/30/16 - Continue ASA/Plavix/metoprolol,cardizem and statin. - Metoprolol was increased to 100 mg twice a day -continue po cardizem.digoxin and eliquis were added but eliquis held and replaced w heparin gtt- might need ablation-cardiology following. -IV lopressor prn- -continue to monitor and adjust the regimen as needed. 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 Will need EUS however per GI can be done as an outpatient. - GI reconsulted for worsening dysphagia - on Protonix - Oncology following. He will need weekly Erbitux and XRT outpatient. - Status post surgical resection for L parotid SCC. plan for chemo and radiation per oncology. -Anemia Hb now stable at 9, s/p 2 unit PRBC. Per heme/onc recs, transfuse if Hb<8. Monitor H&H. -Diabetes -Hypothyroidism - SSI ( medium scale) and Levemir 6 units BID for glycemic control. Monitor BS . -blood sugar levels expected to improve as steroid is being tapered off. - Continue thyroid supplementation -PROPH: - Bilateral lower extremity SCDs. - started on Eliquis- -continue PPI Discharge Planning dysphagia w now bleeding: close monitor of Hb levels, transfuse if hb <8. cards and GI following. uncontrolled atrial fib w RVR still on gtt. EUS w ? stent placement sometime this week Guadalupe Carter MD Dec 22, 2016 08:20
[2016-12-22] MEDS: CHLORHEXIDINE 0.12% (ORAL KIT) 15 ML CUP MT SCH ×2 (08:59→20:00)
[2016-12-22] MEDS: RIFAMPIN 150 MG CAP PO SCH ×3 (09:00→21:06)
[2016-12-22] MEDS: POLYETHYLENE GLYCOL 17 GM PKG PO SCH (09:00)
[2016-12-22] MEDS: MULTIVITAMIN TAB PO SCH (09:01)
[2016-12-22] MEDS: predniSONE 10 MG TAB PO SCH (09:01)
[2016-12-22] MEDS: METOPROLOL TARTRATE 50 MG TAB PO SCH (09:01)
[2016-12-22] MEDS: PANTOPRAZOLE SOD 40 MG DELAYED RELEASE TAB PO SCH (09:01)
[2016-12-22] MEDS: DOCUSATE SODIUM 50 MG/SENNA 8.6 MG TAB PO SCH ×2 (09:01→21:00)
[2016-12-22] MEDS: DIGOXIN 0.25 MG TAB PO SCH (09:01)
[2016-12-22] MEDS: SODIUM CHLORIDE 0.9% FLUSH 10 ML FLUSH IV FLUSH SCH ×3 (09:01→21:00)
[2016-12-22] MEDS: FOLIC ACID 1 MG TAB PO SCH (09:01)
[2016-12-22] MEDS: INSULIN DETEMIR 100 UNITS/ML VIAL SQ SCH ×2 (09:05→21:22)
[2016-12-22] MEDS: THIAMINE HCL 100 MG TAB PO SCH (09:07)
[2016-12-22] MEDS ORDERED: HEPARIN-D5W 25,000 U/250 ML 250 ML IV SCH ×2 (09:15→10:00)
--- NOTE | 2016-12-22 09:22 | HHI.GIFU ---
Subjective Remarks Resting sitting on side of bed. C/O significant odynophagia, dysphagia- having hard time taking po. Coughing up small to moderate amounts of red frothy secretions. Eliquis is being switched to Heparin Gtt. Objective Vitals I&O Vital Signs Date Time Temp Pulse Resp B/P Pulse Ox O2 Delivery O2 Flow Rate FiO2 12/22/16 09:00 18 12/22/16 06:00 119 12/22/16 05:00 114 12/22/16 04:56 98.1 116 18 114/70 97 12/22/16 04:00 122 12/22/16 03:00 114 12/22/16 02:00 122 12/22/16 01:13 98.4 111 18 122/67 98 12/22/16 01:00 106 12/22/16 00:00 84 12/21/16 23:00 86 12/21/16 22:04 Nasal Cannula 1.00 12/21/16 22:00 112 12/21/16 21:24 97.8 146 18 116/69 99 12/21/16 21:00 138 12/21/16 20:55 99 Nasal Cannula 2.00 12/21/16 20:00 140 12/21/16 19:00 127 12/21/16 18:00 133 12/21/16 17:00 105 12/21/16 16:00 91 12/21/16 15:00 98.2 114 20 120/67 98 12/21/16 15:00 79 12/21/16 14:00 110 12/21/16 13:00 103 12/21/16 12:00 115 12/21/16 11:00 98.1 108 18 107/65 99 12/21/16 10:00 106 I/O 12/21/16 12/21/16 12/21/16 12/22/16 12/22/16 12/22/16 07:00 15:00 23:00 07:00 15:00 23:00 Intake Total 480 ml 940 ml 680 ml Output Total 2250 ml 750 ml 780 ml Balance -1770 ml 190 ml -100 ml Intake Oral 480 ml 740 ml 480 ml IV Total 200 ml 200 ml Output Urine Total 2250 ml 750 ml 550 ml Estimated Blood Loss 230 ml # Bowel Movements 1 1 0 Laboratory Laboratory Tests Test 12/22/16 01:35 White Blood Count 5.6 Red Blood Count 3.26 Hemoglobin 9.0 Hematocrit 28.4 Mean Corpuscular Volume 87.0 Mean Corpuscular Hemoglobin 27.7 Mean Corpuscular Hemoglobin 31.9 Concent Red Cell Distribution Width 21.1 Platelet Count 172 Mean Platelet Volume 8.0 Neutrophils (%) (Auto) 71.4 Lymphocytes (%) (Auto) 13.3 Monocytes (%) (Auto) 14.0 Eosinophils (%) (Auto) 1.0 Basophils (%) (Auto) 0.3 Neutrophils # (Auto) 4.0 Lymphocytes # (Auto) 0.7 Monocytes # (Auto) 0.8 Eosinophils # (Auto) 0.1 Basophils # (Auto) 0.0 CBC Comment DIFF FINAL Differential Comment Imaging Last Impressions Barium Swallow X-Ray 12/20/16 0000 Signed Impressions: Service Date/Time: Tuesday, December 20, 2016 13:15 - CONCLUSION: 1. The distal half of the esophagus demonstrates irregular luminal narrowing consistent with the patient's history of esophageal adenocarcinoma. 2. Mild dilatation of the esophagus immediately proximal to the esophageal mass. However, there are no signs of obstruction. 3. Small hiatal hernia. Washington Marroquin MD Abdomen MRI 12/17/16 0000 Signed Impressions: Service Date/Time: Saturday, December 17, 2016 13:59 - CONCLUSION: 1. No acute finding is identified to explain the abdominal pain. 2. Stable thickening of the distal esophagus. There is a single mildly enlarged left gastric lymph node measuring 12 x 10 mm. 3. Moderate sized bilateral pleural effusions, left larger than right, with associated compressive atelectasis. Washington Marroquin MD Chest X-Ray 12/12/16 0000 Signed Impressions: Service Date/Time: Monday, December 12, 2016 17:04 - CONCLUSION: Slight CHF and left basilar opacity may be pleural effusion or consolidation. Mali Law MD Head CT 12/01/16 0000 Signed Impressions: Service Date/Time: Thursday, December 01, 2016 07:59 - CONCLUSION: 1. Questionable area of low attenuation left temporal lobe could be artifact versus less likely infarct. MRI may be warranted based on clinical history. 2. No midline shift or mass effect. 3. No intraparenchymal hemorrhage. Jagjit Tapia MD Brain MRI 12/01/16 0000 Signed Impressions: Service Date/Time: Thursday, December 01, 2016 12:07 - CONCLUSION: Normal examination. Barrett Rodriguez MD Abdomen X-Ray 12/01/16 0000 Signed Impressions: Service Date/Time: Thursday, December 01, 2016 16:48 - CONCLUSION: No evidence of obstruction. Feeding tube tip in the distal stomach. Barrett Rodriguez MD Abdomen/Pelvis CT 11/29/16 [id number] Signed Impressions: Service Date/Time: Wednesday, November 30, 2016 01:35 - CONCLUSION: 1. Markedly abnormal appearance of the distal esophagus consistent with the history of esophageal carcinoma. 2. Atherosclerotic calcifications of the aorta and iliac vessels. 3. Cirrhotic appearance to the liver with a mildly nodular contour present. Erik Simon MD CT Angiography 11/29/16 [id number] Signed Impressions: Service Date/Time: Wednesday, November 30, 2016 01:35 - CONCLUSION: 1. No evidence for pulmonary embolism or pneumonia. 2. Abnormal appearance of the esophagus with and soft tissue consistent with the history of carcinoma. Erik Simon MD Physical Exam HEENT: Normocephalic; atraumatic; no jaundice. CHEST: CTA, diminished bases CARDIAC: Irregular rhythm. Tachycardic. ABDOMEN: Soft, obese, nondistended, nontender; no hepatosplenomegaly; bowel sounds x 4- bringing up small to mod amount bloody frothy secretions. EXTREMITIES: 2-3 edema BUE, 3-4+ LE. SKIN: Normal; no rash; no jaundice. 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 Worsening since Barium Swallow on 12/[address] following, pureed diet. Barium Swallow X-Ray 12/20/16--1. The distal half of the esophagus demonstrates irregular luminal narrowing consistent with the patient's history of esophageal adenocarcinoma. 2. Mild dilatation of the esophagus immediately proximal to the esophageal mass. However, there are no signs of obstruction. 3. Small hiatal hernia. Also bringing up small to moderate amount of bloody frothy secretions. He is on Eliquis and this is being changed to Heparin gtt. ? Esophageal stent. - Upper GIB. Bringing up bloody frothy secretions- small to moderate amount. On Eliquis, Plavix, ASA. Eliquis is being changed to Heparin gtt. 9.0/28.4. - Esophageal cancer. PET Scan (10/28/16)----> negative examination of the head and neck, findings characteristic of esophageal neoplasm. S/P EGD/Colonoscopy (11/20/16)----> There was a long stricture i the mid esophagus and distal esophagus, multiple biopsies were performed, the mucosa of the stomach appeared normal, duodenal mucosa showed no abnormalities in the entire duodenum, retroflexed views revealed a small hiatal hernia; nine sessile polyps ranging from 4-12 mm in size were found at the cecum, in the ascending colon, descending colon, sigmoid colon, and rectum; polypectomy was performed using snare cautery, moderate diverticulosis was noted in the left colon, retroflexed views revealed internal grade I hemorrhoids, a digital rectal exam was performed and revealed no abnormalities of the anus. Pathology revealed invasive adenocarcinoma- distal esophagus, descending colon polyp and rectosigmoid polyp both benign hyperplastic colonic polyp, no adenomatous change or malignancy is seen. EUS when more stable. S/P XRT Simulation. Plan is for erbitux, radiation as outpatient. - Constipation. (+) BM. Miralax - Abnormal imaging of the liver on CT scan, consistent with cirrhosis. Abdomen/ Pelvis CT (11/29/16)----> 1. Markedly abnormal appearance of the distal esophagus consistent with the history of esophageal carcinoma. 2. Atherosclerotic calcifications of the aorta and iliac vessels. 3. Cirrhotic appearance to the liver with a mildly nodular contour present. Abdomen MRI 12/17/16--1. No acute finding is identified to explain the abdominal pain. 2. Stable thickening of the distal esophagus. There is a single mildly enlarged left gastric lymph node measuring 12 x 10 mm. 3. Moderate sized bilateral pleural effusions, left larger than right, with associated compressive atelectasis. Unclear if he has hx of cirrhosis. There is mention of hx of HCV in EMR, but patient has had undetectable viral load as far back as 2001. Pt does report he has a history of HCV and was successfully treated with Interferon/ribavirin in the past. Iron saturation 4.1%, Ferritin 124, Hepatitis C antibodies (+), viral load undetectable, TERRIE negative, ASMA < 20.0, AMA neg, Ceruloplasmin 40 and alpha 1 antitrypsin 298. Labs and imaging consistent with cirrhosis. Pt does not currently drink, but states that he was a heavy drinker in the past. LFT stable. - Afib with RVR. Rate 140's. Cardizem gtt, digoxin, eliquis was changed to heparin gtt. Cardiology following. - Sepsis/Bacteremia/UTI. Urine and Bcx with Staphylococcus aureus. S/P removal of infusaport by GS (12/02). Rpt bcx no growth. Ancef----> 01/15. - AMS, Acute metabolic encephalopathy. Head CT (12/01/16)-----> 1. Questionable area of low attenuation left temporal lobe could be artifact versus less likely infarct. MRI may be warranted based on clinical history. 2. No midline shift or mass effect. 3. No intraparenchymal hemorrhage. Brain MRI (12/01/16 )----> Normal examination. Lethargic, but awakens and follows commands. Confused. - Resp. Failure. Chest X-Ray (12/05/16)----> 1. Cardiomegaly and findings of vascular congestion without overt failure. There has been no significant change when compared to the prior exam. S/P Extubation on 12/03. cedric Carrillo, - NSTEMI, CAD. S/P left heart catheterization (11/30/16) with Dr. Murillo and this revealed RCA 10% lesion mid segment, mild calcifications left main, LAD with calcification from it's proximal segment to its midsegment however, with no significant obstructive lesions, The LAD is giving off to a diagonal which has a 70% lesion in its ostial segment, left circumflex artery with a proximal clot thrombus, S/P percutaneous coronary intervention/bare metal stent to proximal left circumflex. ASA and Plavix, as well as aggressive optimization of coronary artery disease. 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 S/P at [facility] with Dr. Valdovinos in June of 2016----> underwent extensive head and neck surgery involving a parotidectomy and radical neck dissection in September of 2016. Because of high risk features of local recurrence with perineural invasion and positive margins, it was recommended that he have concurrent chemoradiation therapy. He was evaluated by Dr. Cross for radiation and seen by Dr. Bell for oncology. PET Scan ()----> negative examination of the head and neck, findings characteristic of esophageal neoplasm. Direct visualization is recommended. - Hx HTN, Hyperlipidemia, DM. per attending. PLAN: - Pureed diet, per ST - EUS,? Esophageal stent- timing to be determined - rate 140's. - Monitor HH - Transfuse as necessary - Cont. PPI - Add Carafate - Cont. Miralax - Monitor labs - Supportive care - Further recommendations to follow based on results of above - Patient seen and examined by Dr. Hanson and myself and this note is written on his behalf Nga Ramos Dec 22, 2016 09:21
--- NOTE | 2016-12-22 09:42 | PD.CARD.PN ---
Subjective Subjective Remarks Pt still w/ rapid afib; moderate hematemesis or hemoptysis o/n. Objective Medications Administered Medications Medications (Trade) Dose Ordered Sig/Geovanny Route PRN Reason Start Time Stop Time Status Last Admin Dose Admin Sodium Chloride (NS Flush) 2 ml UNSCH PRN IV FLUSH FLUSH AFTER USING IV ACCESS 11/30/16 02:45 12/01/16 21:53 Sodium Chloride (NS Flush) 2 ml BID IV FLUSH 11/30/16 09:00 12/22/16 09:01 Oxycodone HCl (Roxicodone) 5 mg Q4H PRN PO PAIN SCALE 3 TO 5 11/30/16 02:45 12/22/16 02:37 Senna/Docusate Sodium (Rere-Colace) 1 tab BID PO 11/30/16 09:00 12/22/16 09:01 Acetaminophen (Tylenol) 325 mg Q4H PRN PO PAIN SCALE 1 TO 2 11/30/16 13:45 12/13/16 17:13 Aspirin (Aspirin Chew) 81 mg DAILY PO 11/30/16 13:45 Hold 12/21/16 08:29 Clopidogrel Bisulfate (Plavix) 75 mg DAILY PO 12/01/16 09:00 12/21/16 08:29 Ondansetron HCl (Zofran Inj) 4 mg Q4H PRN IV NAUSEA 11/30/16 13:45 12/05/16 22:06 Sodium Chloride (NS Flush) 5 ml Q21D IV FLUSH 11/30/16 18:00 12/21/16 17:19 Heparin Sodium (Porcine) (Heparin Central Flush) 500 units Q21D IV FLUSH 11/30/16 18:00 11/30/16 18:04 Acetaminophen (Tylenol 650 Mg/ 20 ml Liq) 650 mg Q6H PRN PO FEVER 12/01/16 17:30 12/02/16 01:07 Chlorhexidine Gluconate (Peridex 0.12% Liq) 15 ml BID@08,20 MT 12/02/16 08:00 12/15/16 08:00 Metoprolol Tartrate (Lopressor Inj) 2.5 mg Q6H PRN IV PUSH HR >110 12/02/16 08:15 12/20/16 18:38 Polyethylene Glycol (Miralax) 17 gm DAILY PO 12/04/16 09:00 12/21/16 08:28 Thiamine HCl (Vitamin B1) 100 mg DAILY PO 12/05/16 09:00 12/22/16 09:07 Multivitamins (Theragran) 1 tab DAILY PO 12/05/16 09:00 12/22/16 09:01 Folic Acid (Folate) 1 mg DAILY PO 12/05/16 09:00 12/22/16 09:01 Rifampin 300 mg 300 mg Q12HR PO 12/06/16 09:15 01/15/17 23:00 12/21/16 21:11 Cefazolin Sodium/ Dextrose (Ancef 2 Gm Premix) 50 ml @ 100 mls/hr Q8H IV 12/06/16 10:00 01/15/17 23:00 12/22/16 09:03 Lorazepam (Ativan Inj) 1 mg Q4H PRN IV PUSH ANXIETY AND/OR AGITATION 12/09/16 15:15 12/19/16 01:59 Atorvastatin Calcium (Lipitor) 40 mg HS PO 12/12/16 21:00 12/21/16 21:02 Sodium Chloride (NS Flush) See Protocol DAILY IV FLUSH 12/13/16 09:00 12/22/16 09:02 Heparin Sodium (Porcine) (Heparin Central Flush) See Protocol DAILY IV FLUSH 12/13/16 09:00 12/22/16 09:02 Sodium Chloride (NS Flush) UNSCH PRN IV FLUSH SEE PROTOCOL TABLE 12/12/16 17:00 12/19/16 01:59 Pantoprazole Sodium (Protonix) 40 mg Q12HR PO 12/13/16 09:00 12/22/16 09:01 Insulin Detemir (Levemir Inj) 6 units Q12HR SQ 12/14/16 09:00 12/22/16 09:05 Metoprolol Tartrate (Lopressor) 100 mg Q12HR PO 12/14/16 21:00 12/22/16 09:01 Lorazepam (Ativan) 0.5 mg DAILY PRN PO ANXIETY 12/18/16 15:45 12/19/16 08:29 Diltiazem HCl 90 mg 90 mg Q6H PO 12/18/16 23:00 12/22/16 05:54 Diltiazem HCl/ Sodium Chloride (Cardizem Inj/NS Inj) 125 ml @ 0 mls/hr TITRATE IV 12/19/16 18:15 12/21/16 17:20 Apixaban (Eliquis) 5 mg BID PO 12/20/16 10:00 12/21/16 21:02 Prednisone (Deltasone) 10 mg DAILY PO 12/21/16 09:00 12/22/16 09:01 Oxycodone HCl (Roxicodone) 15 mg Q4H PRN PO PAIN 6-10 12/21/16 11:00 12/22/16 06:01 Digoxin (Lanoxin) 0.25 mg DAILY PO 12/22/16 09:00 12/22/16 09:01 Vital Signs / I&O Vital Signs Date Time Temp Pulse Resp B/P Pulse Ox O2 Delivery O2 Flow Rate FiO2 12/22/16 09:00 18 12/22/16 06:00 119 12/22/16 05:00 114 12/22/16 04:56 98.1 116 18 114/70 97 12/22/16 04:00 122 12/22/16 03:00 114 12/22/16 02:00 122 12/22/16 01:13 98.4 111 18 122/67 98 12/22/16 01:00 106 12/22/16 00:00 84 12/21/16 23:00 86 12/21/16 22:04 Nasal Cannula 1.00 12/21/16 22:00 112 12/21/16 21:24 97.8 146 18 116/69 99 12/21/16 21:00 138 12/21/16 20:55 99 Nasal Cannula 2.00 12/21/16 20:00 140 12/21/16 19:00 127 12/21/16 18:00 133 12/21/16 17:00 105 12/21/16 16:00 91 12/21/16 15:00 98.2 114 20 120/67 98 12/21/16 15:00 79 12/21/16 14:00 110 12/21/16 13:00 103 12/21/16 12:00 115 12/21/16 11:00 98.1 108 18 107/65 99 12/21/16 10:00 106 I/O 12/21/16 12/21/16 12/21/16 12/22/1612/22/17 8/7/17 07:00 15:00 23:00 07:00 15:00 23:00 Intake Total 480 ml 940 ml 680 ml Output Total 2250 ml 750 ml 780 ml Balance -1770 ml 190 ml -100 ml Intake Oral 480 ml 740 ml 480 ml IV Total 200 ml 200 ml Output Urine Total 2250 ml 750 ml 550 ml Estimated Blood Loss 230 ml # Bowel Movements 1 1 0 Physical Exam GENERAL: This is a well-nourished, well-developed patient, in no apparent distress. CARDIOVASCULAR: regular rate and irregular rhythm, 2/6 sarina, gallops, or rubs. RESPIRATORY: Clear to auscultation. Breath sounds equal bilaterally. No wheezes , rales, or rhonchi. GASTROINTESTINAL: Abdomen soft, non-tender, nondistended. Normal, active bowel sounds MUSCULOSKELETAL: Extremities without clubbing, cyanosis, or edema. NEURO: Alert & Oriented x4 to person, place, time, situation. Moves all ext x4 Laboratory Laboratory Tests Test 12/22/16 01:35 White Blood Count 5.6 TH/MM3 Red Blood Count 3.26 MIL/MM3 Hemoglobin 9.0 GM/DL Hematocrit 28.4 % Mean Corpuscular Volume 87.0 FL Mean Corpuscular Hemoglobin 27.7 PG Mean Corpuscular Hemoglobin 31.9 % Concent Red Cell Distribution Width 21.1 % Platelet Count 172 TH/MM3 Mean Platelet Volume 8.0 FL Neutrophils (%) (Auto) 71.4 % Lymphocytes (%) (Auto) 13.3 % Monocytes (%) (Auto) 14.0 % Eosinophils (%) (Auto) 1.0 % Basophils (%) (Auto) 0.3 % Neutrophils # (Auto) 4.0 TH/MM3 Lymphocytes # (Auto) 0.7 TH/MM3 Monocytes # (Auto) 0.8 TH/MM3 Eosinophils # (Auto) 0.1 TH/MM3 Basophils # (Auto) 0.0 TH/MM3 CBC Comment DIFF FINAL Differential Comment Imaging Last Impressions Barium Swallow X-Ray 12/20/16 0000 Signed Impressions: Service Date/Time: Tuesday, December 20, 2016 13:15 - CONCLUSION: 1. The distal half of the esophagus demonstrates irregular luminal narrowing consistent with the patient's history of esophageal adenocarcinoma. 2. Mild dilatation of the esophagus immediately proximal to the esophageal mass. However, there are no signs of obstruction. 3. Small hiatal hernia. aWshington Marroquin MD Abdomen MRI 12/17/16 0000 Signed Impressions: Service Date/Time: Saturday, December 17, 2016 13:59 - CONCLUSION: 1. No acute finding is identified to explain the abdominal pain. 2. Stable thickening of the distal esophagus. There is a single mildly enlarged left gastric lymph node measuring 12 x 10 mm. 3. Moderate sized bilateral pleural effusions, left larger than right, with associated compressive atelectasis. Washington Marroquin MD Chest X-Ray 12/12/16 Signed Impressions: Service Date/Time: Monday, December 12, 2016 17:04 - CONCLUSION: Slight CHF and left basilar opacity may be pleural effusion or consolidation. Mali Law MD Head CT 12/01/16 0000 Signed Impressions: Service Date/Time: Thursday, December 01, 2016 07:59 - CONCLUSION: 1. Questionable area of low attenuation left temporal lobe could be artifact versus less likely infarct. MRI may be warranted based on clinical history. 2. No midline shift or mass effect. 3. No intraparenchymal hemorrhage. Jagjit Tapia MD Brain MRI 12/01/16 0000 Signed Impressions: Service Date/Time: Thursday, December 01, 2016 12:07 - CONCLUSION: Normal examination. Barrett Rodriguez MD Abdomen X-Ray 12/01/16 Signed Impressions: Service Date/Time: Thursday, December 01, 2016 16:48 - CONCLUSION: No evidence of obstruction. Feeding tube tip in the distal stomach. Barrett Rodriguez MD Abdomen/Pelvis CT 11/29/16 [id number] Signed Impressions: Service Date/Time: Wednesday, November 30, 2016 01:35 - CONCLUSION: 1. Markedly abnormal appearance of the distal esophagus consistent with the history of esophageal carcinoma. 2. Atherosclerotic calcifications of the aorta and iliac vessels. 3. Cirrhotic appearance to the liver with a mildly nodular contour present. Erik Simon MD CT Angiography 11/29/16 [id number] Signed Impressions: Service Date/Time: Wednesday, November 30, 2016 01:35 - CONCLUSION: 1. No evidence for pulmonary embolism or pneumonia. 2. Abnormal appearance of the esophagus with and soft tissue consistent with the history of carcinoma. Erik Simon MD Assessment and Plan Problem List: (1) NSTEMI (non-ST elevated myocardial infarction) Assessment and Plan: s/p PCI to LCx; continue asa/stain/plavix (2) SCC (squamous cell carcinoma) (3) Parotid mass (4) Hypertension (5) Rapid atrial fibrillation Assessment and Plan: On cardizem ggt, increased PO dilt, digoxin; added eliquis ; may require ablation as rates have been difficult (6) Murmur, cardiac Assessment and Plan: seems louder to me than previous; will get a limited echo (repeat) (7) Hematemesis Assessment and Plan: very difficult but since it was significant will stop heparin and asa; maintain plavix given recent stent. Luis Enrique Quinonez MD Dec 22, 2016 09:42
[2016-12-22] MEDS: PANTOPRAZOLE SODIUM 40 MG VIAL IV PUSH SCH ×2 (10:29→21:06)
[2016-12-22] MEDS: SUCRALFATE 1 GM/10 ML CUP PO SCH ×3 (10:30→21:07)
[2016-12-22] MEDS: CLOPIDOGREL 75 MG TAB PO SCH (10:32)
[2016-12-22 10:57] LABS: HEMATOCRIT 27.5 % (39.0-51.0); MEAN CELL VOLUME 87.5 FL (80.0-100.0); MEAN CORPUSCULAR HEMOGLOBIN 27.8 PG (27.0-34.0); MEAN CORPUSCULAR HGB CONC 31.8 % (32.0-36.0); PLATELET COUNT 165 TH/MM3 (150-450); RED BLOOD COUNT 3.14 MIL/MM3 (4.50-5.90); RED CELL DISTRIBUTION WIDTH 20.6 % (11.6-17.2); REVIEW FLAG FINAL
[2016-12-22 11:07] LABS: APTT (PATIENT) 62.2 SEC (24.3-30.1); INTERNATIONAL NORMALIZED RATIO 1.2 RATIO; PROTHROMBIN TIME - PATIENT 13.8 SEC (9.8-11.6)
--- NOTE | 2016-12-22 12:59 | MB ---
cc: LOLIS MCCARTHY M.D. DATE OF CONSULTATION: 12/22/2016 REASON FOR CONSULTATION Atrial fibrillation with biventricular response, unable to control with medication. HISTORY OF PRESENT ILLNESS Mr. La is a 61-year-old gentleman with head and neck cancer with esophageal mass. He has previous surgery that was done at [facility]. The gentleman was currently on chemo and radiotherapy. PET scan apparently indicated there is some other foci of malignancy. The gentleman was admitted due to abdominal and chest pain. During hospitalization he was seen by Dr. Quinonez. And on November 30, PTCA plus stent to circumflex was done by Dr. Krause. A bare metal stent was implanted. The gentleman continued to be in atrial fibrillation with biventricular response. There is some history of infection also. Heart rate was very difficult to control. I was consulted for further evaluation and management. The chart was reviewed. The patient was evaluated. ALLERGIES PENICILLIN. SOCIAL HISTORY He stopped smoking 2 months ago. FAMILY HISTORY Noncontributory to his current medical condition. MEDICATIONS The patient is takin. Ancef. 2. Cardizem IV. 3. He is on heparin. 4. He is on acetaminophen. 5. Eliquis was discontinued. 6. Lipitor 40 mg a day. 7. Plavix 75 mg a day. 8. Digoxin 0.25 mg twice a day. 9. Allopurinol. 10. Protonix. 11. Oxycodone. 12. Thiamine. REVIEW OF SYSTEMS The patient refers tired and shortness of breath. PHYSICAL EXAMINATION GENERAL: Alert, fully oriented in bed. LUNGS: Ventilated. CARDIOVASCULAR: S1-S2, tachycardic. There is a systolic ejection murmur 3/6. ABDOMEN: Soft, obese. No mass. No bruit. EXTREMITIES: Edema +2. Left fascial area with surgical scar. LABORATORY DATA Hemoglobin is 8.7, potassium 4.1, creatinine 0.64. INR 1.2. ASSESSMENT AND RECOMMENDATIONS Mr. La has atrial fibrillation with biventricular response. Multiple factors may make the heart rate very difficult to control. He has anemia and hemoglobin currently 8.7. Apparently, the gentleman is having fluid retention. Edema +2. He is on IV antibiotic due to infection. At this point an echocardiogram is going to be ordered to evaluate wall motion and valvular function. The gentleman is going to need diuretic. He may need blood transfusion. That will be decided by hematology oncology. I am going to review his medication. I am going to increase the Cardizem p.o. If blood pressure is adequate beta-gutierrez will be added. I am not sure about the patient's life expectancy at this point. The patient is unaware of what his prognosis is. He is not a good candidate for ablation. He has good creatinine clearance. Digoxin will be reviewed. His condition is ___ prognosis is poor. I will monitor him during hospitalization. Case was discussed with the patient. MD ASHLEE Abad/ORI /12:07 PM /12:35 PM
[2016-12-22] MEDS ORDERED: FUROSEMIDE 20 MG/2 ML VIAL IV PUSH ONE (13:00)
[2016-12-22] MEDS: METOPROLOL TARTRATE 25 MG TAB PO SCH ×2 (13:43→16:58)
[2016-12-22 14:28] LABS: HEMATOCRIT 27.3 % (39.0-51.0); REVIEW FLAG FINAL
[2016-12-22] MEDS ORDERED: HEPARIN SODIUM - IV 10,000 UNITS/10 ML VIAL IV PRN ×2 (15:15)
[2016-12-22] MEDS: DILTIAZEM 125 MG/NS 100 ML IV SCH ×2 (16:40)
--- NOTE | 2016-12-22 17:21 | ECHRPT ---
Indication: Pericardial effusion (noninflammatory) CONCLUSIONS Normal left ventricular size. There is dynamic "pseudo" outflow tract obstructive physiology due to concentric hypertrophy and hyperdynamic systolic function. Mild mitral valve regurgitation. Mild aortic valve regurgitation. The pulmonary valve is not well visualized. There is a [id number] pericardial effusion present. No hemodynamically significant echocardiographic features were observed (no pre-tamponade physiology). BP: / HR: Rhythm: MEASUREMENTS (Male / Female) Normal Values Technical Quality: 2D ECHO LV Diastolic Diameter PLAX 4.3 cm 4.2 - 5.9 / 3.9 - 5.3 cm LV Systolic Diameter PLAX 3.3 cm IVS Diastolic Thickness 0.7 cm 0.6 - 1.0 / 0.6 - 0.9 cm LVPW Diastolic Thickness 0.8 cm 0.6 - 1.0 / 0.6 - 0.9 cm LV Relative Wall Thickness 0.3 DOPPLER Mitral E Point Velocity 65.2 cm/s TR Peak Velocity 216.0 cm/s TR Peak Gradient 18.7 mmHg FINDINGS LEFT VENTRICLE Normal left ventricular size. There is dynamic "pseudo" outflow tract obstructive physiology due to concentric hypertrophy and hyperdynamic systolic function. The left ventricular systolic function is normal with an estimated ejection fraction in the range of 60-65%. RIGHT VENTRICLE Normal right ventricular size and systolic function. LEFT ATRIUM The left atrial size is normal. RIGHT ATRIUM The right atrial size is normal. ATRIAL SEPTUM Normal atrial septal thickness without atrial level shunting by limited color doppler interrogation. AORTA The aortic root and proximal ascending aorta are normal in size on limited imaging. MITRAL VALVE Mild mitral valve regurgitation. AORTIC VALVE Mild aortic valve regurgitation. TRICUSPID VALVE Structurally normal tricuspid valve. No tricuspid valve stenosis or regurgitation. PULMONARY VALVE The pulmonary valve is not well visualized. VESSELS The inferior vena cava is normal in size. PERICARDIUM There is a [id number] pericardial effusion present. No hemodynamically significant echocardiographic features were observed (no pre-tamponade physiology). Barrett Chen MD, FACC (Electronically Signed) Final Date:22 December 2016 17:20
[2016-12-22 19:04] LABS: APTT (PATIENT) 45.2 SEC (24.3-30.1)
[2016-12-22 19:05] LABS: HEMATOCRIT 25.4 % (39.0-51.0); REVIEW FLAG FINAL
[2016-12-22] MEDS: ATORVASTATIN 40 MG TAB PO SCH ×2 (21:00→21:06)
--- NOTE | 2016-12-22 22:00 | PD.ONC.PN ---
Subjective Subjective Remarks patient had afib with uncontrolled rate --120s -130s cough up streaks of red blood was on eliquis and plavix--has bare metal stent in place s/p PCI heparin started Objective Data Date Time Temp Pulse Resp B/P Pulse Ox O2 Delivery O2 Flow Rate FiO2 12/22/16 18:49 18 12/22/16 18:00 120 12/22/16 17:00 135 12/22/16 16:00 126 12/22/16 15:10 98.4 133 18 116/66 100 12/22/16 15:00 121 12/22/16 14:00 107 12/22/16 13:00 117 12/22/16 12:00 113 12/22/16 11:20 98.9 122 18 117/63 99 12/22/16 11:00 121 12/22/16 10:30 99 Nasal Cannula 1.00 12/22/16 10:00 96 12/22/16 09:00 110 12/22/16 08:45 98 Nasal Cannula 2.00 21 12/22/16 08:45 98.6 130 18 115/64 98 12/22/16 08:00 115 12/22/16 07:00 124 12/22/16 06:00 119 12/22/16 05:00 114 12/22/16 04:56 98.1 116 18 114/70 97 12/22/16 04:00 122 12/22/16 03:00 114 12/22/16 02:00 122 12/22/16 01:13 98.4 111 18 122/67 98 12/22/16 01:00 106 12/22/16 00:00 84 12/21/16 23:00 86 12/21/16 22:04 Nasal Cannula 1.00 12/22/16 12/22/16 12/22/16 07:00 15:00 23:00 Intake Total 680 ml 758 ml Output Total 780 ml Balance -100 ml 758 ml Result Diagram: 12/22/16 1815 12/20/16 0500 Laboratory Results Laboratory Tests Test 12/22/16 12/22/16 12/22/16 12/22/16 01:35 10:35 13:55 18:15 White Blood Count 5.6 TH/MM3 5.0 TH/MM3 Red Blood Count 3.26 MIL/MM3 3.14 MIL/MM3 Hemoglobin 9.0 GM/DL 8.7 GM/DL 8.9 GM/DL 8.4 GM/DL Hematocrit 28.4 % 27.5 % 27.3 % 25.4 % Mean Corpuscular Volume 87.0 FL 87.5 FL Mean Corpuscular Hemoglobin 27.7 PG 27.8 PG Mean Corpuscular Hemoglobin 31.9 % 31.8 % Concent Red Cell Distribution Width 21.1 % 20.6 % Platelet Count 172 TH/MM3 165 TH/MM3 Mean Platelet Volume 8.0 FL 8.0 FL Neutrophils (%) (Auto) 71.4 % Lymphocytes (%) (Auto) 13.3 % Monocytes (%) (Auto) 14.0 % Eosinophils (%) (Auto) 1.0 % Basophils (%) (Auto) 0.3 % Neutrophils # (Auto) 4.0 TH/MM3 Lymphocytes # (Auto) 0.7 TH/MM3 Monocytes # (Auto) 0.8 TH/MM3 Eosinophils # (Auto) 0.1 TH/MM3 Basophils # (Auto) 0.0 TH/MM3 CBC Comment DIFF FINAL Differential Comment Prothrombin Time 13.8 SEC Prothromb Time International 1.2 RATIO Ratio Activated Partial 62.2 SEC 45.2 SEC Thromboplast Time Administered Medications Medications (Trade) Dose Ordered Sig/Geovanny Route PRN Reason Start Time Stop Time Status Last Admin Dose Admin Sodium Chloride (NS Flush) 2 ml UNSCH PRN IV FLUSH FLUSH AFTER USING IV ACCESS 11/30/16 02:45 12/01/16 21:53 Sodium Chloride (NS Flush) 2 ml BID IV FLUSH 11/30/16 09:00 12/22/16 09:01 Oxycodone HCl (Roxicodone) 5 mg Q4H PRN PO PAIN SCALE 3 TO 5 11/30/16 02:45 12/22/16 02:37 Senna/Docusate Sodium (Rere-Colace) 1 tab BID PO 11/30/16 09:00 12/22/16 09:01 Acetaminophen (Tylenol) 325 mg Q4H PRN PO PAIN SCALE 1 TO 2 11/30/16 13:45 12/13/16 17:13 Clopidogrel Bisulfate (Plavix) 75 mg DAILY PO 12/01/16 09:00 12/22/16 10:32 Ondansetron HCl (Zofran Inj) 4 mg Q4H PRN IV NAUSEA 11/30/16 13:45 12/05/16 22:06 Sodium Chloride (NS Flush) 5 ml Q21D IV FLUSH 11/30/16 18:00 12/21/16 17:19 Heparin Sodium (Porcine) (Heparin Central Flush) 500 units Q21D IV FLUSH 11/30/16 18:00 11/30/16 18:04 Acetaminophen (Tylenol 650 Mg/ 20 ml Liq) 650 mg Q6H PRN PO FEVER 12/01/16 17:30 12/02/16 01:07 Chlorhexidine Gluconate (Peridex 0.12% Liq) 15 ml BID@08,20 MT 12/02/16 08:00 12/15/16 08:00 Polyethylene Glycol (Miralax) 17 gm DAILY PO 12/04/16 09:00 12/21/16 08:28 Thiamine HCl (Vitamin B1) 100 mg DAILY PO 12/05/16 09:00 12/22/16 09:07 Multivitamins (Theragran) 1 tab DAILY PO 12/05/16 09:00 12/22/16 09:01 Folic Acid (Folate) 1 mg DAILY PO 12/05/16 09:00 12/22/16 09:01 Rifampin 300 mg 300 mg Q12HR PO 12/06/16 09:15 01/15/17 23:00 12/22/16 21:06 Cefazolin Sodium/ Dextrose (Ancef 2 Gm Premix) 50 ml @ 100 mls/hr Q8H IV 12/06/16 10:00 01/15/17 23:00 12/22/16 16:58 Lorazepam (Ativan Inj) 1 mg Q4H PRN IV PUSH ANXIETY AND/OR AGITATION 12/09/16 15:15 12/19/16 01:59 Atorvastatin Calcium (Lipitor) 40 mg HS PO 12/12/16 21:00 12/22/16 21:06 Sodium Chloride (NS Flush) See Protocol DAILY IV FLUSH 12/13/16 09:00 12/22/16 09:02 Heparin Sodium (Porcine) (Heparin Central Flush) See Protocol DAILY IV FLUSH 12/13/16 09:00 12/22/16 09:02 Sodium Chloride (NS Flush) UNSCH PRN IV FLUSH SEE PROTOCOL TABLE 12/12/16 17:00 12/19/16 01:59 Insulin Detemir (Levemir Inj) 6 units Q12HR SQ 12/14/16 09:00 12/22/16 21:22 Lorazepam (Ativan) 0.5 mg DAILY PRN PO ANXIETY 12/18/16 15:45 12/19/16 08:29 Diltiazem HCl 90 mg 90 mg Q6H PO 12/18/16 23:00 12/22/16 16:40 Diltiazem HCl/ Sodium Chloride (Cardizem Inj/NS Inj) 125 ml @ 0 mls/hr TITRATE IV 12/19/16 18:15 12/22/16 16:40 Prednisone (Deltasone) 10 mg DAILY PO 12/21/16 09:00 12/22/16 09:01 Oxycodone HCl (Roxicodone) 15 mg Q4H PRN PO PAIN 6-10 12/21/16 11:00 12/22/16 17:59 Digoxin (Lanoxin) 0.25 mg DAILY PO 12/22/16 09:00 12/22/16 09:01 Sucralfate (Carafate Liq) 1 gm ACHS PO 12/22/16 11:00 12/22/16 21:07 Pantoprazole Sodium 40 mg 40 mg Q12H IV PUSH 12/22/16 10:00 12/22/16 21:06 Heparin Sodium/ Dextrose (Heparin-D5W Inj) 250 ml @ 0 mls/hr TITRATE IV 12/22/16 10:00 12/22/16 12:43 Metoprolol Tartrate (Lopressor) 25 mg Q6HR PO 12/22/16 13:00 12/22/16 16:58 Objective Remarks GENERAL: acutely ill, nad LYMPHATIC: No adenopathy. CARDIOVASCULAR: IRIR RESPIRATORY: Breath sounds equal bilaterally. No accessory muscle use. GASTROINTESTINAL: Abdomen soft, non-tender, nondistended. EXTREMITIES: No cyanosis, or edema. Assessment/Plan Problem List: (1) Esophageal adenocarcinoma Status: Acute Plan: --we plan to give weekly Erbitux and XRT outpatient. --patient had OP EGD with biopsy, pathology showed adenocarcinoma. --EGD/Colonoscopy, 11/20/16--showed long stricture in the mid esophagus and distal esophagus, multiple biopsies were performed Pathology revealed invasive adenocarcinoma- distal esophagus --XRT simulation done 12/19. (2) SCC (squamous cell carcinoma) Status: Acute Plan: --has a head and neck, lung malignancy which was locally advanced. --received definitive treatment with surgery. Post surgery he had positive margins and some poor risk features and he was about to get concurrent chemotherapy and radiation and adjuvantly to achieve local control of the disease --PET scan to stage his disease prior to treatment showed an esophageal mass (3) Normocytic anemia Status: Acute Plan: --transfuse packed red blood cells if his hemoglobin drops below 8. --s/p iron infusion (4) Sepsis Status: Resolved Plan: BC, 12.08 no growth BC, 12/07 no growth --BC, 12/05 +, S. Aureus --had removal of port, + S. aureus --on Ancef (5) NSTEMI (non-ST elevated myocardial infarction) Status: Acute Plan: --had elevated troponin and ST-segment changes consistent with acute [place]. 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 Also with a new diagnosis of early stage gastric cancer Plan 1. Gastric adenocarcinoma--localized disease-- incomplete staging since EUS is not completed. No distant disease - will be treated with curative intent chemo and XRT. - case discussed with Dr. Roberson - Patient currently not stable and multiple issues including afib with RVR 2. Anemia-- with upper GI bleeding and afib with RVR - Will transfuse 1 unit of pRBC - Lasix 20mg post transfusion - premedicate with Tylenol and Benadryl - GI onboard - Heparin may have to stopped if bleeding continue - I suspect he will require plavix since he has a bare metal stent--will defer to cardiology d/w rn Problem Qualifiers (1) Sepsis: Qualified Code: A41.9 - Sepsis, due to unspecified organism Brant Bell MD Dec 22, 2016 22:00
[2016-12-22] MEDS: ONDANSETRON HCL 4 MG/2 ML VIAL IV PRN (22:12)
[2016-12-22 22:39] LABS: HEMATOCRIT 25.1 % (39.0-51.0); REVIEW FLAG FINAL
[2016-12-22] MEDS ORDERED: FUROSEMIDE 20 MG/2 ML VIAL IV PUSH SCH (23:00)
[2016-12-23] VITALS (27 sets, daily range): BP systolic 103–141; BP diastolic 54–80; PULSE 103–150; RESP 16–24; TEMP 97.8–98.6; O2SAT 92–100
[2016-12-23] MEDS: METOPROLOL TARTRATE 5 MG/5 ML VIAL IV PUSH PRN ×3 (00:09→05:31)
[2016-12-23] MEDS: MORPHINE SULFATE 4 MG/ML INJ IV PUSH PRN ×5 (00:34→23:10)
[2016-12-23] MEDS: DILTIAZEM 125 MG/NS 100 ML IV SCH ×6 (01:35→18:40)
[2016-12-23] MEDS: ceFAZolin 2 GM PREMIX 50 ML IV SCH ×3 (02:31→18:09)
[2016-12-23] MEDS: DILTIAZEM HCL 90 MG TAB PO SCH ×4 (05:00→23:10)
[2016-12-23] MEDS: INSULIN ASPART SUPPLEMENTAL SCALE SQ SCH ×4 (05:39→23:30)
[2016-12-23] MEDS: METOPROLOL TARTRATE 25 MG TAB PO SCH ×5 (06:00→23:10)
[2016-12-23] MEDS: SUCRALFATE 1 GM/10 ML CUP PO SCH ×4 (06:24→21:00)
[2016-12-23 07:17] LABS: HEMATOCRIT 26.6 % (39.0-51.0); REVIEW FLAG FINAL
[2016-12-23] MEDS: CHLORHEXIDINE 0.12% (ORAL KIT) 15 ML CUP MT SCH ×2 (08:00→20:00)
[2016-12-23] MEDS: FOLIC ACID 1 MG TAB PO SCH (09:14)
[2016-12-23] MEDS: DIGOXIN 0.25 MG TAB PO SCH (09:14)
[2016-12-23] MEDS: RIFAMPIN 150 MG CAP PO SCH ×2 (09:15→21:00)
[2016-12-23] MEDS: CLOPIDOGREL 75 MG TAB PO SCH (09:15)
[2016-12-23] MEDS: POLYETHYLENE GLYCOL 17 GM PKG PO SCH (09:15)
[2016-12-23] MEDS: predniSONE 10 MG TAB PO SCH (09:15)
[2016-12-23] MEDS: MULTIVITAMIN TAB PO SCH (09:16)
[2016-12-23] MEDS: SODIUM CHLORIDE 0.9% FLUSH 10 ML FLUSH IV FLUSH SCH ×3 (09:16→23:00)
[2016-12-23] MEDS: THIAMINE HCL 100 MG TAB PO SCH (09:16)
[2016-12-23] MEDS: ASPIRIN EC 81 MG TABEC PO SCH (09:16)
[2016-12-23] MEDS: DOCUSATE SODIUM 50 MG/SENNA 8.6 MG TAB PO SCH ×2 (09:16→21:00)
[2016-12-23] MEDS: PANTOPRAZOLE SODIUM 40 MG VIAL IV PUSH SCH ×2 (09:17→23:00)
[2016-12-23] MEDS: INSULIN DETEMIR 100 UNITS/ML VIAL SQ SCH ×2 (09:31→21:00)
--- NOTE | 2016-12-23 10:45 | PD.ONC.PN ---
Subjective Subjective Remarks Afebrile overnight. Coughing/vomiting up blood. Has pain with swallowing. heparin gtt stopped last night by cardiology Objective Data Date Time Temp Pulse Resp B/P Pulse Ox O2 Delivery O2 Flow Rate FiO2 12/23/16 10:00 148 12/23/16 09:49 94 Nasal Cannula 2.50 12/23/16 09:00 148 12/23/16 08:00 133 12/23/16 07:00 130 12/23/16 07:00 98.0 135 16 127/80 93 12/23/16 07:00 93 Nasal Cannula 2.00 12/23/16 06:00 132 12/23/16 05:00 144 12/23/16 05:00 98.6 145 24 119/69 92 12/23/16 04:00 118 12/23/16 03:00 124 12/23/16 02:00 146 12/23/16 01:00 130 12/23/16 00:35 98.3 124 24 105/72 94 12/23/16 00:00 145 12/23/16 00:00 98.3 148 24 123/58 94 12/22/16 23:00 146 12/22/16 22:00 142 12/22/16 21:05 21 12/22/16 21:00 136 12/22/16 20:00 119 12/22/16 20:00 Nasal Cannula 2.00 12/22/16 20:00 98.3 145 24 122/72 94 12/22/16 20:00 94 Nasal Cannula 2.00 12/22/16 19:00 118 12/22/16 18:49 18 12/22/16 18:00 120 12/22/16 17:00 135 12/22/16 16:00 126 12/22/16 15:10 98.4 133 18 116/66 100 12/22/16 15:00 121 12/22/16 14:00 107 12/22/16 13:00 117 12/22/16 12:00 113 12/22/16 11:20 98.9 122 18 117/63 99 12/22/16 11:00 121 12/22/16 10:30 99 Nasal Cannula 1.00 12/23/16 12/23/16 12/23/16 07:00 15:00 23:00 Intake Total 678 ml Output Total 1550 ml Balance -872 ml Result Diagram: 12/23/16 0620 12/20/16 0500 Laboratory Results Laboratory Tests Test 12/22/16 12/22/16 12/22/16 12/22/16 10:35 13:55 18:15 22:20 White Blood Count 5.0 TH/MM3 Red Blood Count 3.14 MIL/MM3 Hemoglobin 8.7 GM/DL 8.9 GM/DL 8.4 GM/DL 8.2 GM/DL Hematocrit 27.5 % 27.3 % 25.4 % 25.1 % Mean Corpuscular Volume 87.5 FL Mean Corpuscular Hemoglobin 27.8 PG Mean Corpuscular Hemoglobin 31.8 % Concent Red Cell Distribution Width 20.6 % Platelet Count 165 TH/MM3 Mean Platelet Volume 8.0 FL Prothrombin Time 13.8 SEC Prothromb Time International 1.2 RATIO Ratio Activated Partial 62.2 SEC 45.2 SEC Thromboplast Time Test 12/22/16 12/23/16 12/23/16 22:35 06:20 06:45 Blood Type O NEGATIVE Crossmatch Leukocyte-Reduced Red Blood Cells Blood Bank Comment Hemoglobin 8.7 GM/DL Hematocrit 26.6 % Digoxin Level 0.8 NG/ML Administered Medications Medications (Trade) Dose Ordered Sig/Geovanny Route PRN Reason Start Time Stop Time Status Last Admin Dose Admin Sodium Chloride (NS Flush) 2 ml UNSCH PRN IV FLUSH FLUSH AFTER USING IV ACCESS 11/30/16 02:45 12/01/16 21:53 Sodium Chloride (NS Flush) 2 ml BID IV FLUSH 11/30/16 09:00 12/23/16 09:16 Oxycodone HCl (Roxicodone) 5 mg Q4H PRN PO PAIN SCALE 3 TO 5 11/30/16 02:45 12/23/16 09:34 Senna/Docusate Sodium (Rere-Colace) 1 tab BID PO 11/30/16 09:00 12/23/16 09:16 Acetaminophen (Tylenol) 325 mg Q4H PRN PO PAIN SCALE 1 TO 2 11/30/16 13:45 12/13/16 17:13 Clopidogrel Bisulfate (Plavix) 75 mg DAILY PO 12/01/16 09:00 12/23/16 09:15 Ondansetron HCl (Zofran Inj) 4 mg Q4H PRN IV NAUSEA 11/30/16 13:45 12/22/16 22:12 Sodium Chloride (NS Flush) 5 ml Q21D IV FLUSH 11/30/16 18:00 12/21/16 17:19 Heparin Sodium (Porcine) (Heparin Central Flush) 500 units Q21D IV FLUSH 11/30/16 18:00 11/30/16 18:04 Acetaminophen (Tylenol 650 Mg/ 20 ml Liq) 650 mg Q6H PRN PO FEVER 12/01/16 17:30 12/02/16 01:07 Chlorhexidine Gluconate (Peridex 0.12% Liq) 15 ml BID@08,20 MT 12/02/16 08:00 12/15/16 08:00 Polyethylene Glycol (Miralax) 17 gm DAILY PO 12/04/16 09:00 12/23/16 09:15 Thiamine HCl (Vitamin B1) 100 mg DAILY PO 12/05/16 09:00 12/23/16 09:16 Multivitamins (Theragran) 1 tab DAILY PO 12/05/16 09:00 12/23/16 09:16 Folic Acid (Folate) 1 mg DAILY PO 12/05/16 09:00 12/23/16 09:14 Rifampin 300 mg 300 mg Q12HR PO 12/06/16 09:15 01/15/17 23:00 12/23/16 09:15 Cefazolin Sodium/ Dextrose (Ancef 2 Gm Premix) 50 ml @ 100 mls/hr Q8H IV 12/06/16 10:00 01/15/17 23:00 12/23/16 09:17 Lorazepam (Ativan Inj) 1 mg Q4H PRN IV PUSH ANXIETY AND/OR AGITATION 12/09/16 15:15 12/19/16 01:59 Atorvastatin Calcium (Lipitor) 40 mg HS PO 12/12/16 21:00 12/21/16 21:02 Sodium Chloride (NS Flush) See Protocol DAILY IV FLUSH 12/13/16 09:00 12/23/16 09:16 Heparin Sodium (Porcine) (Heparin Central Flush) See Protocol DAILY IV FLUSH 12/13/16 09:00 12/23/16 09:17 Sodium Chloride (NS Flush) UNSCH PRN IV FLUSH SEE PROTOCOL TABLE 12/12/16 17:00 12/19/16 01:59 Insulin Detemir (Levemir Inj) 6 units Q12HR SQ 12/14/16 09:00 12/23/16 09:31 Lorazepam (Ativan) 0.5 mg DAILY PRN PO ANXIETY 12/18/16 15:45 12/19/16 08:29 Diltiazem HCl 90 mg 90 mg Q6H PO 12/18/16 23:00 12/23/16 09:14 Diltiazem HCl/ Sodium Chloride (Cardizem Inj/NS Inj) 125 ml @ 0 mls/hr TITRATE IV 12/19/16 18:15 12/23/16 09:48 Prednisone (Deltasone) 10 mg DAILY PO 12/21/16 09:00 12/23/16 09:15 Oxycodone HCl (Roxicodone) 15 mg Q4H PRN PO PAIN 6-10 12/21/16 11:00 12/23/16 09:34 Digoxin (Lanoxin) 0.25 mg DAILY PO 12/22/16 09:00 12/23/16 09:14 Sucralfate (Carafate Liq) 1 gm ACHS PO 12/22/16 11:00 12/23/16 09:15 Metoprolol Tartrate (Lopressor Inj) 5 mg Q1HR PRN IV PUSH RAPID HEART RATE 12/22/16 09:45 12/23/16 05:31 Pantoprazole Sodium (Protonix Inj) 40 mg Q12H IV PUSH 12/22/16 10:00 12/23/16 09:17 Aspirin (Ecotrin Ec) 81 mg DAILY PO 12/23/16 09:00 12/23/16 09:16 Metoprolol Tartrate (Lopressor) 25 mg Q6HR PO 12/22/16 13:00 12/22/16 16:58 Morphine Sulfate (Morphine Inj) 2 mg Q4H PRN IV PUSH pain >5 12/23/16 00:00 12/23/16 05:22 Objective Remarks GENERAL: Chronically ill-appearing male upright in chair. On 2.5L O2 via NC SKIN: Warm and dry. HEAD: Normocephalic. EYES: No injection or drainage. NECK: Supple, trachea midline. CARDIOVASCULAR: +S1/S2, RESPIRATORY: anterior ray clear GASTROINTESTINAL: Abdomen soft, non-tender, nondistended. EXTREMITIES: No cyanosis. mild edema in ankles bilaterally NEUROLOGICAL: awake and alert, normal speech. moving extremities. Assessment/Plan Problem List: (1) Esophageal adenocarcinoma Status: Acute Plan: --++hemoptysis --we plan to give weekly Erbitux and XRT outpatient. --patient had OP EGD with biopsy, pathology showed adenocarcinoma. --EGD/Colonoscopy, 11/20/16--showed long stricture in the mid esophagus and distal esophagus, multiple biopsies were performed Pathology revealed invasive adenocarcinoma- distal esophagus --XRT simulation done 12/19. --XRT planned to start by next week. (2) SCC (squamous cell carcinoma) Status: Acute Plan: --has a head and neck, lung malignancy which was locally advanced. --received definitive treatment with surgery. Post surgery he had positive margins and some poor risk features and he was about to get concurrent chemotherapy and radiation and adjuvantly to achieve local control of the disease --PET scan to stage his disease prior to treatment showed an esophageal mass (3) Normocytic anemia Status: Acute Plan: --hgb stable but now patient has worsening hemoptysis/hematemesis, likely d/t esophageal mass --transfuse packed red blood cells if his hemoglobin drops below 8. --s/p iron infusion (4) NSTEMI (non-ST elevated myocardial infarction) Status: Acute Plan: --had elevated troponin and ST-segment changes consistent with acute [place]. --s/p cardiac cath, stent placement to proximal left circumflex --cardiology following --on plavix and ASA (5) Afib Status: Acute Plan: --cardiology following. (6) Sepsis Status: Resolved Plan: BC, 12.08 no growth BC, 12/07 no growth --BC, 12/05 +, S. Aureus --had removal of port, + S. 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 Also with a new diagnosis of early stage gastric cancer Plan 1. monitor hgb with hematemesis/hemoptysis 2. await start of XRT 3. supportive care Attending Statement The exam, history, and the medical decision-making described in the above note were completed with the assistance of the mid-level provider. I reviewed and agree with the findings presented. I attest that I had a [id number] encounter with the patient on the same day, and personally performed and documented my assessment and findings in the medical record. Had long discussion with patient. He wants aggressive treatment for gastric adenocarcinoma He is now agreeable to proceed with EUS and possible stent Poor oral intake due to dysphagia. Albumin less than 2 Will consider PPN tomorrow. Will transfuse another unit of pRBC since Hb remains low No hematemesis or coughing up blood XRT and chemotherapy once stable. Spoke with Dr. Roberson d/w RN Problem Qualifiers (1) Afib: Qualified Code: I48.91 - Atrial fibrillation, unspecified type (2) Sepsis: Qualified Code: A41.9 - Sepsis, due to unspecified organism Perla Duran Dec 23, 2016 10:45 Brant Bell MD Dec 23, 2016 23:47
--- NOTE | 2016-12-23 14:59 | HHI.PR ---
Subjective Remarks Follow-up for multiple medical complaints listed in the assessment and plan Patient stated that he has not had any hemoptysis or far. Denying chest pain, shortness of breathing, palpitation or lightheadedness dizziness. Heparin drip was stopped last night by Dr. Krause, insole filler. Patient very anxious to go home. Patient's heart rate in the 140s. He is on Cardizem drip at 15 cc/h. Nurse at the bedside and gave him metoprolol IV which improved his heart rate. Objective Vitals Vital Signs Date Time Temp Pulse Resp B/P Pulse Ox O2 Delivery O2 Flow Rate FiO2 12/23/16 14:00 110 12/23/16 13:00 109 12/23/16 12:00 126 12/23/16 11:00 97.8 150 20 126/74 100 12/23/16 11:00 140 12/23/16 10:00 148 12/23/16 09:49 94 Nasal Cannula 2.50 12/23/16 09:00 148 12/23/16 08:00 133 12/23/16 07:00 130 12/23/16 07:00 98.0 135 16 127/80 93 12/23/16 07:00 93 Nasal Cannula 2.00 12/23/16 06:00 132 12/23/16 05:00 144 12/23/16 05:00 98.6 145 24 119/69 92 12/23/16 04:00 118 12/23/16 03:00 124 12/23/16 02:00 146 12/23/16 01:00 130 12/23/16 00:35 98.3 124 24 105/72 94 12/23/16 00:00 145 12/23/16 00:00 98.3 148 24 123/58 94 12/22/16 23:00 146 12/22/16 22:00 142 12/22/16 21:05 21 12/22/16 21:00 136 12/22/16 20:00 119 12/22/16 20:00 Nasal Cannula 2.00 12/22/16 20:00 98.3 145 24 122/72 94 12/22/16 20:00 94 Nasal Cannula 2.00 12/22/16 19:00 118 12/22/16 18:49 18 12/22/16 18:00 120 12/22/16 17:00 135 12/22/16 16:00 126 12/22/16 15:10 98.4 133 18 116/66 100 12/22/16 15:00 121 I/O 12/22/16 12/22/16 12/22/16 12/23/16 12/23/16 12/23/16 06:59 14:59 22:59 06:59 14:59 22:59 Intake Total 680 ml 758 ml 678 ml Output Total 780 ml 1550 ml Balance -100 ml 758 ml -872 ml Intake Oral 480 ml 480 ml 100 ml IV Total 200 ml 278 ml 228 ml Packed Cells 350 ml Output Urine Total 550 ml 1550 ml Estimated Blood Loss 230 ml # Bowel Movements 0 Result Diagram: 12/23/16 0620 12/20/16 0500 Objective Remarks GENERAL: sitting on side of bed, appears uncomfortable CARDIOVASCULAR: tachycardic irregular heart rhythm. 2/6 murmur. RESPIRATORY: Clear to auscultation. Breath sounds equal bilaterally. No wheezes GASTROINTESTINAL: Abdomen soft, non-tender, nondistended. MUSCULOSKELETAL: sitting up on side of bed, able to move his upper extremities. Procedures central line/ arterial line placement intubation cardiac catheterization port removal Medications and IVs Current Medications Sodium Chloride (NS 1000 ml Inj) 1,000 ml @ 999 mls/hr BOLUS ONCE IV Last administered on 11/30/16 01:52; Start 11/30/16 at 00:00; Stop 11/30/16 at 01:00 ; Status DC Morphine Sulfate (Morphine Inj) 4 mg ONCE ONCE IV PUSH Last administered on 01:53; Start 11/30/16 at 01:00; Stop 11/30/16 at 01:01; Status DC Potassium Bicarb/ Potassium Chloride (K-Lyte Cl Eff) 75 meq ONCE ONCE PO Last administered on 11/30/16 01:53; Start 11/30/16 at 01:30; Stop 11/30/16 at 01:31; Status DC Iohexol (Omnipaque 350 Inj) 75 ml STK-MED ONCE IV ; Start 11/30/16 at 01:37; Stop 11/30/16 at 01:38; Status DC Calcium Gluconate 1 gm 1 gm ONCE ONCE IV PUSH Last administered on 11/30/16 02:58; Start 11/30/16 at 02:45; Stop 11/30/16 at 02:46; Status DC Sodium Chloride (NS 1000 ml Inj) 1,000 ml @ 100 mls/hr Q10H IV Last administered on 11/30/16 02:58; Start 11/30/16 at 02:33; Stop 11/30/16 at 13:54 ; Status DC Sodium Chloride (NS Flush) 2 ml UNSCH PRN IV FLUSH FLUSH AFTER USING IV ACCESS Last administered on 12/01/16 21:53; Start 11/30/16 at 02:45 Sodium Chloride (NS Flush) 2 ml BID IV FLUSH Last administered on 12/23/16 09: 16; Start 11/30/16 at 09:00 Ondansetron HCl (Zofran Inj) 4 mg Q6H PRN IVP NAUSEA OR VOMITING; Start at 02:45; Stop 11/30/16 at 13:51; Status DC Acetaminophen (Tylenol) 650 mg Q6H PRN PO FEVER/PAIN SCALE 1 TO 2; Start at 02:45; Stop 11/30/16 at 13:54; Status DC Hydromorphone HCl (Dilaudid Pf Inj) 1 mg Q3H PRN IV Pain 6-10 Last administered on 12/04/16 06:52; Start 11/30/16 at 02:45; Stop 12/04/16 at 09:25 ; Status DC Oxycodone HCl (Roxicodone) 5 mg Q4H PRN PO PAIN SCALE 3 TO 5 Last administered on 12/23/16 09:34; Start 11/30/16 at 02:45 Senna/Docusate Sodium (Rere-Colace) 1 tab BID PO Last administered on 12/23/16 09:16; Start 11/30/16 at 09:00 Magnesium Hydroxide (Milk Of Magnesia Liq) 30 ml Q12H PRN PO MILD - MODERATE CONSTIPATION; Start 11/30/16 at 02:45 Sennosides (Senokot) 17.2 mg Q12H PRN PO MODERATE - SEVERE CONSTIPATION; Start 11/30/16 at 02:45 Bisacodyl (Dulcolax Supp) 10 mg DAILY PRN RECTAL SEVERE CONSITIPATION; Start at 02:45 Lactulose (Lactulose Liq) 30 ml DAILY PRN PO SEVERE CONSITIPATION; Start at 02:45 Pantoprazole Sodium (Protonix Inj) 40 mg Q12H IV PUSH Last administered on 12/12 21:10; Start 11/30/16 at 09:00; Stop 12/13/16 at 08:25; Status DC Miscellaneous Information Patient in critical care unit? Ass... Q361D .XX ; Start 11/30/16 at 05:15 Chlorhexidine Gluconate (Chlorhexidine 2% Cloth) 3 pack DAILY@04 TOPICAL Last administered on 12/05/16 04:00; Start 12/01/16 at 04:00; Stop 12/05/16 at 04:01 ; Status DC Chlorhexidine Gluconate (Chlorhexidine 2% Cloth) 3 pack UNSCH PRN TOPICAL HYGIENIC CARE; Start 11/30/16 at 05:15; Stop 12/05/16 at 05:12; Status DC Aspirin 81 mg 81 mg ONCE ONCE PO Last administered on 11/30/16 12:19; Start 11/30/16 at 12:00; Stop 11/30/16 at 12:01; Status DC Heparin Sodium/ Dextrose (Heparin-D5W Inj) 250 ml @ 0 mls/hr TITRATE IV Last administered on 11/30/16 12:21; Start 11/30/16 at 12:15; Stop 11/30/16 at 13:49 ; Status DC Heparin Sodium (Porcine) (Heparin Inj) 5,000 units UNSCH PRN IV aPTT less than 25; Start 11/30/16 at 12:15; Stop 11/30/16 at 13:49; Status DC Heparin Sodium (Porcine) (Heparin Inj) 2,500 units UNSCH PRN IV aPTT 25 to 39; Start 11/30/16 at 12:15; Stop 11/30/16 at 13:49; Status DC Heparin Sodium (Porcine) 4000 units 4,000 units ONCE ONCE IV Last administered on 11/30/16 12:19; Start 11/30/16 at 12:15; Stop 11/30/16 at 12:16 ; Status DC Heparin Sodium/ Sodium Chloride (Heparin-NS/Pf Inj) 500 ml @ As Directed STK- MED ONCE .ROUTE Last administered on 11/30/16 12:36; Start 11/30/16 at 12:36; Stop 11/30/16 at 12:37; Status DC Midazolam HCl (Versed Inj) 2 mg STK-MED ONCE .ROUTE Last administered on 12:36; Start 11/30/16 at 12:36; Stop 11/30/16 at 12:37; Status DC Fentanyl Citrate (fentaNYL INJ) 100 mcg STK-MED ONCE .ROUTE Last administered on 11/30/16 12:36; Start 11/30/16 at 12:36; Stop 11/30/16 at 12:37; Status DC Dextrose (D50w (Syr) Inj) 50 ml STK-MED ONCE .ROUTE Last administered on 12:53; Start 11/30/16 at 12:53; Stop 11/30/16 at 12:54; Status DC Phenylephrine HCl (Neosynephrine Inj) 40 mg STK-MED ONCE .ROUTE Last administered on 11/30/16 13:04; Start 11/30/16 at 13:04; Stop 11/30/16 at 13:05 ; Status DC Clopidogrel Bisulfate 600 mg 600 mg STK-MED ONCE .ROUTE ; Start 11/30/16 at 13: 25; Stop 11/30/16 at 13:26; Status DC Sodium Chloride (NS 1000 ml Inj) 1,000 ml @ 125 mls/hr Q8H IV Last administered on 11/30/16 21:51; Start 11/30/16 at 13:42; Stop 11/30/16 at 17:41 ; Status DC Acetaminophen (Tylenol) 325 mg Q4H PRN PO PAIN SCALE 1 TO 2 Last administered on 12/13/16 17:13; Start 11/30/16 at 13:45 Aspirin (Aspirin Chew) 81 mg DAILY PO Last administered on 12/21/16 08:29; Start 11/30/16 at 13:45; Stop 12/22/16 at 09:42; Status DC Clopidogrel Bisulfate (Plavix) 600 mg ONCE ONCE PO ; Start 11/30/16 at 13:45; Stop 11/30/16 at 13:47; Status DC Clopidogrel Bisulfate (Plavix) 75 mg DAILY PO Last administered on 12/23/16 09: 15; Start 12/01/16 at 09:00 Miscellaneous Information 1 ONCE ONCE XX ; Start 11/30/16 at 13:45; Stop at 13:49; Status DC Atropine Sulfate (Atropine Inj) 0.5 mg UNSCH PRN IV VAGAL REPONSE; Start at 13:45 Ondansetron HCl (Zofran Inj) 4 mg Q4H PRN IV NAUSEA Last administered on 22:12; Start 11/30/16 at 13:45 Metoprolol Tartrate (Lopressor) 12.5 mg BID PO Last administered on 12/01/16 09:51; Start 11/30/16 at 21:00; Stop 12/14/16 at 16:12; Status DC Atorvastatin Calcium (Lipitor) 10 mg HS PO Last administered on 12/02/16 21:22 ; Start 11/30/16 at 21:00; Stop 12/12/16 at 09:02; Status DC Miscellaneous Information HOLD METFORMIN FOR... Q24H .XX ; Start 11/30/16 at 15: 00; Stop 12/02/16 at 14:59; Status DC Potassium Chloride (KCl 20 Meq Premix Inj) 100 ml @ 50 mls/hr Q2H IV Last administered on 11/30/16 19:24; Start 11/30/16 at 18:00; Stop 11/30/16 at 21:59 ; Status DC Sodium Chloride (NS Flush) 5 ml Q21D IV FLUSH Last administered on 12/21/16 17: 19; Start 11/30/16 at 18:00 Heparin Sodium (Porcine) (Heparin Central Flush) 500 units Q21D IV FLUSH Last administered on 11/30/16 18:04; Start 11/30/16 at 18:00 Sodium Chloride (NS Flush) 5 ml UNSCH PRN IV FLUSH SEE LABEL COMMENTS; Start at 18:00 Heparin Sodium (Porcine) (Heparin Central Flush) 250 units UNSCH PRN IV FLUSH FLUSH AFTER USING IV ACCESS; Start 11/30/16 at 18:00 Lorazepam (Ativan Inj) 0.5 mg ONCE ONCE IV PUSH Last administered on 06:37; Start 12/01/16 at 06:30; Stop 12/01/16 at 06:31; Status DC Lorazepam 0.5 mg 0.5 mg ONCE ONCE IV Last administered on 12/01/16 07:43; Start 12/01/16 at 07:45; Stop 12/01/16 at 07:46; Status DC Potassium Chloride 30 meq/ Sodium Chloride 115 ml @ 38.333 mls/ hr Q3H IV- CENTRAL Last administered on 12/01/16 12:43; Start 12/01/16 at 08:30; Stop at 14:29; Status DC Vancomycin HCl 2100 mg/Sodium Chloride 521 ml @ 250 mls/hr ONCE ONCE IV Last administered on 12/01/16 12:43; Start 12/01/16 at 12:00; Stop 12/01/16 at 14:06 ; Status DC Pharmacy Profile Note 0 ml @ 0 mls/hr UNSCH OTHER ; Start 12/01/16 at 10:30; Status UNV Pharmacy Profile Note 0 ml @ 0 mls/hr UNSCH OTHER ; Start 12/01/16 at 11:00; Stop 12/01/16 at 13:07; Status DC Vancomycin HCl 1250 mg/Sodium Chloride 262.5 ml @ 262.5 mls/ hr Q24H IV ; Start 12/02/16 at 09:00; Stop 12/02/16 at 09:00; Status DC Ceftriaxone Sodium 2000 mg/ Sodium Chloride 100 ml @ 200 mls/hr Q24H IV ; Start 12/01/16 at 14:00; Stop 12/01/16 at 16:10; Status DC Thiamine HCl/ Sodium Chloride (Thiamine Inj/NS Inj) 101 ml @ 101 mls/hr DAILY IV Last administered on 12/01/16 14:09; Start 12/01/16 at 13:00; Stop at 08:28; Status DC Flumazenil (Romazicon Inj) 0.2 mg Q1M PRN IV PUSH SEE LABEL COMMENTS; Start at 13:00 Lorazepam (Ativan) 1 mg Q4H PRN PO CIWA 8 - 10; Start 12/01/16 at 13:00; Stop 12/04/16 at 09:29; Status DC Lorazepam (Ativan Inj) 1 mg Q4H PRN IV PUSH CIWA 8 - 10 Last administered on 21:52; Start 12/01/16 at 13:00; Stop 12/04/16 at 09:29; Status DC Lorazepam (Ativan) 2 mg Q2H PRN PO CIWA 11-14; Start 12/01/16 at 13:00; Stop at 09:29; Status DC Lorazepam (Ativan Inj) 2 mg Q2H PRN IV PUSH CIWA 11-14 Last administered on 04:37; Start 12/01/16 at 13:00; Stop 12/04/16 at 09:29; Status DC Lorazepam (Ativan Inj) 2 mg Q1H PRN IV PUSH CIWA 15-20; Start 12/01/16 at 13:00 ; Stop 12/04/16 at 09:29; Status DC Lorazepam 2 mg 2 mg Q15M PRN IV PUSH CIWA > 20; Start 12/01/16 at 13:00; Stop 12/04/16 at 09:29; Status DC Sodium Chloride 1,000 ml @ 999 mls/hr BOLUS ONCE IV Last administered on 12/01 14:09; Start 12/01/16 at 13:00; Stop 12/01/16 at 14:06; Status DC Sodium Chloride (NS 1000 ml Inj) 1,000 ml @ 999 mls/hr BOLUS ONCE IV Last administered on 12/01/16 14:09; Start 12/01/16 at 13:00; Stop 12/01/16 at 14:06 ; Status DC Morphine Sulfate 8 mg 8 mg STK-MED ONCE .ROUTE Last administered on 12/01/16 14:06; Start 12/01/16 at 14:04; Stop 12/01/16 at 14:05; Status DC Dexmedetomidine HCl/Sodium Chloride (Precedex Inj/NS Inj) 52 ml @ 0 mls/hr TITRATE IV ; Start 12/01/16 at 14:30; Stop 12/03/16 at 07:50; Status DC Albuterol/ Ipratropium (Duoneb Neb) 1 ampule Q6HR NEB NEB Last administered on 12/05/16 15:58; Start 12/01/16 at 16:00; Stop 12/05/16 at 16:00; Status DC Albuterol/ Ipratropium 1 ampule 1 ampule Q2HR NEB PRN NEB SHORTNESS OF BREATH Last administered on 12/17/16 01:21; Start 12/01/16 at 14:30 Cefazolin Sodium/ Dextrose 50 ml @ 100 mls/hr Q8H IV Last administered on 12/03 08:27; Start 12/01/16 at 18:00; Stop 12/06/16 at 09:11; Status DC Pharmacy Profile Note 0 ml @ 0 mls/hr UNSCH OTHER ; Start 12/01/16 at 16:15; Stop 12/03/16 at 10:51; Status DC Sodium Chloride (NS 1000 ml Inj) 1,000 ml @ 50 mls/hr Q20H IV Last administered on 12/04/16 05:40; Start 12/01/16 at 16:30; Stop 12/04/16 at 09:25 ; Status DC Acetaminophen 650 mg 650 mg Q6H PRN PO FEVER Last administered on 12/02/16 01 :07; Start 12/01/16 at 17:30 Vancomycin HCl/ Sodium Chloride (Vancomycin Inj/ NS 500 ml Inj) 521 ml @ 250 mls/hr Q18H IV Last administered on 12/02/16 05:36; Start 12/02/16 at 06:00; Stop 12/02/16 at 11:38; Status DC Miscellaneous Information SPECIFIC LAB TO BE DRAWN:[facility]ANCO TROUGH DATE TO... ONCE ONCE .XX ; Start 12/03/16 at 17:45; Stop 12/03/16 at 17:46; Status Cancel Sodium Chloride (NS 1000 ml Inj) 1,000 ml @ 999 mls/hr BOLUS ONCE IV Last administered on 12/02/16 06:30; Start 12/02/16 at 06:30; Stop 12/02/16 at 07:30 ; Status DC Methylprednisolone Sodium Succinate (SoluMEDROL INJ) 125 mg ONCE STAT IV PUSH Last administered on 12/02/16 07:14; Start 12/02/16 at 06:52; Stop 12/02/16 at 06:59; Status DC Methylprednisolone Sodium Succinate (SoluMEDROL INJ) 60 mg Q8HR IV PUSH Last administered on 12/05/16 05:17; Start 12/02/16 at 14:00; Stop 12/05/16 at 09:00 ; Status DC Etomidate (Amidate Inj) 20 mg STK-MED ONCE .ROUTE Last administered on 08:07; Start 12/02/16 at 07:29; Stop 12/02/16 at 07:30; Status DC Midazolam HCl (Versed Inj) 5 mg STK-MED ONCE .ROUTE Last administered on 08:07; Start 12/02/16 at 07:29; Stop 12/02/16 at 07:30; Status DC Rocuronium [place] (Zemuron Inj) 50 mg STK-MED ONCE .ROUTE Last administered on 12/02/16 08:08; Start 12/02/16 at 07:30; Stop 12/02/16 at 07:31; Status DC Enoxaparin Sodium (Lovenox Inj) 40 mg Q24H SQ Last administered on 12/20/16 09: 04; Start 12/02/16 at 09:00; Stop 12/20/16 at 09:13; Status DC Chlorhexidine Gluconate 15 ml 15 ml BID@08,20 MT Last administered on 08:00; Start 12/02/16 at 08:00 Propofol 100 ml @ 0 mls/hr TITRATE IV Last administered on 12/02/16 19:59; Start 12/02/16 at 08:00; Stop 12/03/16 at 07:50; Status DC Fentanyl Citrate (fentaNYL DRIP) 250 ml @ 0 mls/hr TITRATE IV Last administered on 12/03/16 04:05; Start 12/02/16 at 08:00; Stop 12/04/16 at 09:25 ; Status DC Metoprolol Tartrate 2.5 mg 2.5 mg Q6H PRN IV PUSH HR >110 Last administered on 12/20/16 18:38; Start 12/02/16 at 08:15; Stop 12/22/16 at 09:53; Status DC Multivitamins/ Thiamine HCl/ Folic Acid/Sodium Chloride (Mvi-12 Inj/ Thiamine Inj/ Folvite Inj/1/2 NS 500 ml Inj) 511.2 ml @ 125 mls/hr DAILY IV Last administered on 12/04/16 09:21; Start 12/02/16 at 09:00; Stop 12/05/16 at 09:00 ; Status DC Sodium Bicarbonate (Sodium Bicarbonate 8.4% Inj) 50 meq STK-MED ONCE .ROUTE ; Start 12/02/16 at 09:06; Stop 12/02/16 at 09:07; Status DC Sodium Bicarbonate 50 meq 50 meq NOW ONCE IV PUSH Last administered on 11:16; Start 12/02/16 at 09:45; Stop 12/02/16 at 09:46; Status DC Vasopressin/ Dextrose (Pitressin Inj/ D5W 100 ml Inj) 100 ml @ 4.5 mls/hr [id number] IV Last administered on 12/03/16 04:17; Start 12/02/16 at 11:04; Stop 12/06/16 at 07:32; Status DC Sodium Bicarbonate (Sodium Bicarbonate 8.4% Inj) 50 meq ONCE ONCE IV PUSH Last administered on 12/02/16 11:38; Start 12/02/16 at 11:15; Stop 12/02/16 at 11:22; Status DC Rocuronium [place] 50 mg 50 mg BOLUS ONCE IV Last administered on 12/02/16 11 :39; Start 12/02/16 at 11:15; Stop 12/02/16 at 11:22; Status DC Sodium Bicarbonate 50 ml @ As Directed STK-MED ONCE .ROUTE Last administered on 12/02/16 15:53; Start 12/02/16 at 11:06; Stop 12/02/16 at 11:07; Status DC Vancomycin HCl 2000 mg/Sodium Chloride 520 ml @ 250 mls/hr Q18H IV Last administered on 12/02/16 23:46; Start 12/03/16 at 00:00; Stop 12/03/16 at 10:51 ; Status DC Norepinephrine Bitartrate (Levophed-Dextrose Drip) 250 ml @ 0 mls/hr TITRATE IV Last administered on 12/03/16 04:05; Start 12/02/16 at 15:15; Stop 12/08/16 at 10:23; Status DC Terbutaline Sulfate 1 mg 1 mg UNSCH PRN SQ For Extravasation; Start 12/02/16 at 15:15 Sodium Bicarbonate/ Sterile Water (Sodium Bicarbonate 8.4% Inj/Sterile Water For Inj) 1,000 ml @ 150 mls/hr Q6H40M IV Last administered on 7/19/17at 04:16 ; Start 12/02/16 at 16:00; Stop 12/03/16 at 07:49; Status DC Iohexol (OMNIPAQUE 350 INJ (Ingot Caster)) 100 ml STK-MED ONCE OTHER ; Start at 12:30; Stop 12/02/16 at 15:48; Status DC Lidocaine HCl (Xylocaine 1% Inj (50 ml)) 50 ml STK-MED ONCE .ROUTE ; Start 12/02 at 19:06; Stop 12/02/16 at 19:07; Status DC Dextrose (D50w (Vial) Inj) 50 ml UNSCH PRN IV HYPOGLYCEMIA-SEE COMMENTS; Start 12/02/16 at 22:30 Glucagon (Glucagon Inj) 1 mg UNSCH PRN OTHER HYPOGLYCEMIA-SEE COMMENTS; Start 12/02/16 at 22:30 Insulin Aspart 1 1 Q4HR SQ Last administered on 12/14/16 04:00; Start at 00:00; Stop 12/14/16 at 08:16; Status DC Midazolam HCl (Versed 100 Mg/ ml Inj) 100 ml @ 0 mls/hr TITRATE IV ; Start 12/03 at 08:00; Stop 12/04/16 at 09:25; Status DC Polyethylene Glycol (Miralax) 17 gm DAILY PO Last administered on 12/23/16 09: 15; Start 12/04/16 at 09:00 Bumetanide (Bumex Inj) 1 mg STK-MED ONCE .ROUTE ; Start 12/03/16 at 11:46; Stop 12/03/16 at 11:47; Status DC Bumetanide 1 mg 1 mg NOW ONCE IV PUSH ; Start 12/03/16 at 15:00; Stop 12/03/16 at 15:01; Status DC Cefepime HCl/ Sodium Chloride (Maxipime Inj/NS Inj) 100 ml @ 200 mls/hr Q8H IV Last administered on 12/06/16 08:16; Start 12/03/16 at 17:00; Stop 12/06/16 at 09:08; Status DC Bumetanide 1 mg 1 mg ONCE ONCE IV PUSH Last administered on 12/04/16 10:00; Start 12/04/16 at 09:30; Stop 12/04/16 at 09:32; Status DC Potassium Chloride (KCl 40 Meq Premix Inj) 100 ml @ 25 mls/hr Q4H IV ; Start at 10:00; Stop 12/04/16 at 17:59; Status DC Morphine Sulfate 2 mg 2 mg Q3H PRN IV PUSH pain 5-10 Last administered on t 05:16; Start 12/04/16 at 09:30; Stop 12/05/16 at 09:01; Status DC Potassium Chloride 100 ml @ 50 mls/hr Q2H PRN IV For Potassium 2.8 - 3.2 mEq/ L Last administered on 12/04/16t 21:17; Start 12/04/16 at 09:30; Stop 12/16/16 at 07:44; Status DC Potassium Chloride (KCl 20 Meq Premix Inj) 100 ml @ 50 mls/hr Q2H PRN IV For Potassium 2.8 - 3.2 mEq/L; Start 12/04/16 at 09:30; Stop 12/16/16 at 07:44; Status DC Potassium Bicarb/ Potassium Chloride 50 meq 50 meq UNSCH PRN PO For Potassium 3.3 - 3.5 mEq/L; Start 12/04/16 at 09:30; Stop 12/16/16 at 07:44; Status DC Potassium Chloride 100 ml @ 25 mls/hr UNSCH PRN IV For Potassium 3.3 - 3.5 mEq /L; Start 12/04/16 at 09:30; Stop 12/16/16 at 07:44; Status DC Potassium Chloride 100 ml @ 50 mls/hr Q2H PRN IV For Potassium 3.3 - 3.5 mEq/L ; Start 12/04/16 at 09:30; Stop 12/16/16 at 07:44; Status DC Magnesium Sulfate/ Sodium Chloride (Magnesium Sulfate Inj/NS Inj) 100 ml @ 50 mls/hr UNSCH PRN IV For Magnesium 0.9 - 1.1 mg/dL; Start 12/04/16 at 09:30; Stop 12/16/16 at 07:44; Status DC Magnesium Oxide 800 mg 800 mg UNSCH PRN PO For Magnesium 1.2 - 1.6 mg/dL; Start 12/04/16 at 09:30; Stop 12/16/16 at 07:44; Status DC Magnesium Sulfate/ Sodium Chloride (Magnesium Sulfate Inj/NS Inj) 100 ml @ 50 mls/hr UNSCH PRN IV For Magnesium 1.2 - 1.6 mg/dL; Start 12/04/16 at 09:30; Stop 12/16/16 at 07:44; Status DC Potassium Phosphate 2000 mg 2,000 mg Q4H PRN PO For Phosphorus < 2.5 mg/dL; Start 12/04/16 at 09:30; Stop 12/16/16 at 07:45; Status DC Sodium Phosphate/ Sodium Chloride (Sodium Phosphate Inj/NS 250 ml Inj) 250 ml @ 42 mls/hr UNSCH PRN IV For Phosphorus < 2.5 mg/dL Last administered on 06:41; Start 12/04/16 at 09:30; Stop 12/16/16 at 07:45; Status DC Potassium Phosphate 2000 mg 2,000 mg UNSCH PRN PO/TUBE SEE LABEL COMMENTS; Start 12/04/16 at 09:30; Stop 12/16/16 at 07:45; Status DC Potassium Phosphate/Sodium Chloride (Potassium Phosphate Inj/NS 250 ml Inj) 260 ml @ 42 mls/hr UNSCH PRN IV SEE LABEL COMMENTS; Start 12/04/16 at 09:30; Stop 12/16/16 at 07:45; Status DC Potassium Bicarb/ Potassium Chloride (K-Lyte Cl Eff) 25 meq ONCE ONCE PO ; Start 12/04/16 at 09:30; Stop 12/04/16 at 09:42; Status DC Bumetanide 1 mg 1 mg ONCE ONCE IV PUSH Last administered on 12/04/16 12:32; Start 12/04/16 at 12:00; Stop 12/04/16 at 12:01; Status DC Calcium Gluconate/ Sodium Chloride (Calcium Gluconate Inj/NS Inj) 110 ml @ 110 mls/hr ONCE ONCE IV Last administered on 12/05/16 10:29; Start 12/05/16 at 09 :30; Stop 12/05/16 at 10:29; Status DC Methylprednisolone Sodium Succinate (SoluMEDROL INJ) 40 mg Q12HR IV PUSH Last administered on 12/10/16 20:09; Start 12/05/16 at 09:00; Stop 12/11/16 at 09:04 ; Status DC Thiamine HCl (Vitamin B1) 100 mg DAILY PO Last administered on 12/23/16 09:16; Start 12/05/16 at 09:00 Multivitamins (Theragran) 1 tab DAILY PO Last administered on 12/23/16 09:16; Start 12/05/16 at 09:00 Folic Acid (Folate) 1 mg DAILY PO Last administered on 12/23/16 09:14; Start at 09:00 Morphine Sulfate (Morphine Inj) 2 mg Q2H PRN IV PUSH pain 5-10 Last administered on 12/17/16 01:20; Start 12/05/16 at 10:30; Stop 12/17/16 at 10:52; Status DC Albuterol/ Ipratropium 1 ampule 1 ampule Q4HR NEB NEB Last administered on 03:40; Start 12/06/16 at 08:00; Stop 12/10/16 at 08:00; Status DC Sodium Chloride (1/2 NS 1000 ml Inj) 1,000 ml @ 125 mls/hr Q8H IV Last administered on 12/07/16 21:33; Start 12/06/16 at 07:30; Stop 12/08/16 at 10:23 ; Status DC Rifampin 300 mg 300 mg Q12HR PO Last administered on 12/23/16 09:15; Start at 09:15; Stop 01/15/17 at 23:00 Cefazolin Sodium/ Dextrose (Ancef 2 Gm Premix) 50 ml @ 100 mls/hr Q8H IV Last administered on 12/23/16 09:17; Start 12/06/16 at 10:00; Stop 01/15/17 at 23:00 Levofloxacin (Levaquin) 750 mg Q24H PO Last administered on 12/12/16 08:58; Start 12/06/16 at 10:00; Stop 12/13/16 at 09:59; Status DC Insulin Detemir (Levemir Inj) 5 units Q12HR SQ Last administered on 12/13/16 21:29; Start 12/07/16 at 09:00; Stop 12/14/16 at 08:17; Status DC Methylnaltrexone [place] (Relistor Inj) 12 mg ONCE ONCE SQ Last administered on 12/07/16 16:58; Start 12/07/16 at 15:00; Stop 12/07/16 at 15:11; Status DC Metoprolol Tartrate (Lopressor Inj) 2.5 mg ONCE ONCE IV PUSH Last administered on 12/08/16 15:15; Start 12/08/16 at 15:00; Stop 12/08/16 at 15:01 ; Status DC Diltiazem HCl (Cardizem Inj) 10 mg ONCE ONCE IV ; Start 12/08/16 at 15:15; Stop 12/08/16 at 16:09; Status DC Metoprolol Tartrate (Lopressor) 50 mg Q12HR PO Last administered on 12/13/16 20:52; Start 12/08/16 at 21:00; Stop 12/14/16 at 09:12; Status DC Diltiazem HCl (Cardizem) 60 mg Q6H PO Last administered on 12/18/16 17:25; Start 12/09/16 at 05:00; Stop 12/18/16 at 18:39; Status DC Lorazepam (Ativan Inj) 1 mg Q4H PRN IV PUSH ANXIETY AND/OR AGITATION Last administered on 12/19/16 01:59; Start 12/09/16 at 15:15 Haloperidol Lactate (Haldol Inj) 2 mg Q8H PRN IM AGITATION AND/OR HALLUCINATION ; Start 12/10/16 at 17:00 Methylprednisolone Sodium Succinate (SoluMEDROL INJ) 20 mg Q12HR IV PUSH Last administered on 12/13/16 20:50; Start 12/11/16 at 21:00; Stop 12/13/16 at 22:00 ; Status DC Atorvastatin Calcium (Lipitor) 40 mg HS PO Last administered on 12/21/16 21:02 ; Start 12/12/16 at 21:00 Sodium Chloride (NS Flush) See Protocol DAILY IV FLUSH Last administered on 12/23 09:16; Start 12/13/16 at 09:00 Sodium Chloride (NS Flush) See Protocol UNSCH PRN IV FLUSH SEE PROTOCOL TABLE; Start 12/12/16 at 17:00 Heparin Sodium (Porcine) (Heparin Central Flush) See Protocol DAILY IV FLUSH Last administered on 12/23/16 09:17; Start 12/13/16 at 09:00 Heparin Sodium (Porcine) (Heparin Central Flush) See Protocol UNSCH PRN IV FLUSH SEE PROTOCOL TABLE; Start 12/12/16 at 17:00 Sodium Chloride UNSCH PRN IV FLUSH SEE PROTOCOL TABLE Last administered on 12/19 01:59; Start 12/12/16 at 17:00 Sodium Chloride (NS 250 ml Inj) 250 ml @ 15 mls/hr ONCE ONCE IV Last administered on 12/13/16 09:34; Start 12/13/16 at 08:15; Stop 12/14/16 at 00:54 ; Status DC Acetaminophen (Tylenol) 650 mg Q4H PRN PO SEE LABEL COMMENTS; Start 12/13/16 at 08:15; Stop 12/13/16 at 12:16; Status DC Diphenhydramine HCl (Benadryl) 25 mg Q4H PRN PO SEE LABEL COMMENTS; Start 12/13 at 08:15; Stop 12/13/16 at 12:16; Status Cancel Prednisone (Deltasone) 40 mg DAILY PO Last administered on 12/16/16 08:53; Start 12/14/16 at 09:00; Stop 12/16/16 at 09:28; Status DC Pantoprazole Sodium (Protonix) 40 mg Q12HR PO Last administered on 12/22/16 09: 01; Start 12/13/16 at 09:00; Stop 12/22/16 at 09:49; Status DC Diphenhydramine HCl (Benadryl) 25 mg Q4H PRN PO SEE LABEL COMMENTS; Start 12/13 at 17:15; Stop 12/13/16 at 21:16; Status DC Insulin Aspart (NovoLOG SUPPLEMENTAL SCALE) 1 ACHS SLIDING SCALE SQ Last administered on 12/23/16 11:27; Start 12/14/16 at 11:00 Insulin Detemir (Levemir Inj) 6 units Q12HR SQ Last administered on 12/23/16 09 :31; Start 12/14/16 at 09:00 Metoprolol Tartrate (Lopressor) 75 mg Q12HR PO Last administered on 12/14/16 12:00; Start 12/14/16 at 12:00; Stop 12/14/16 at 16:10; Status DC Etomidate (Amidate Inj) 25 mg ONCE ONCE IVP ; Start 12/14/16 at 12:15; Stop at 18:48; Status DC Fentanyl Citrate (fentaNYL INJ) 200 mcg ONCE ONCE IV ; Start 12/14/16 at 12:15 ; Stop 12/14/16 at 18:48; Status DC Succinylcholine Chloride (Quelicin Inj) 150 mg ONCE ONCE IV ; Start 12/14/16 at 12:15; Stop 12/14/16 at 18:48; Status DC Metoprolol Tartrate (Lopressor) 100 mg Q12HR PO Last administered on 12/22/16 09:01; Start 12/14/16 at 21:00; Stop 12/22/16 at 12:48; Status DC Metoprolol Tartrate 25 mg 25 mg ONCE ONCE PO Last administered on 12/14/16 16 :55; Start 12/14/16 at 16:15; Stop 12/14/16 at 16:16; Status DC Iron Sucrose/ Sodium Chloride (Venofer Inj/NS Inj) 105 ml @ 105 mls/hr DAILY IV Last administered on 12/18/16 08:01; Start 12/16/16 at 09:00; Stop 12/18/16 at 09:59; Status DC Nitroglycerin (Nitrostat Sl) 0.4 mg Q5M PRN SL CHEST PAIN; Start 12/16/16 at 00: 15 Prednisone (Deltasone) 20 mg DAILY PO Last administered on 12/20/16 09:04; Start 12/17/16 at 09:00; Stop 12/20/16 at 10:01; Status DC Gadodiamide (Omniscan Pf Inj) 21 ml STK-MED ONCE IV Last administered on 15:41; Start 12/17/16 at 15:41; Stop 12/17/16 at 15:42; Status DC Oxycodone HCl (Roxicodone) 10 mg Q4H PRN PO PAIN 6-10 Last administered on 02:37; Start 12/17/16 at 19:00; Stop 12/21/16 at 08:51; Status DC Diltiazem HCl (Cardizem Inj) 20 mg ONCE PRN IV if HR 110-130 Last administered on 12/17/16 21:49; Start 12/17/16 at 21:30; Stop 12/17/16 at 22:30; Status DC Diltiazem HCl 20 mg 20 mg ONCE ONCE IVP ; Start 12/17/16 at 21:30; Stop 12/17/16 at 21:40; Status DC Diltiazem HCl/ Sodium Chloride (Cardizem Inj/NS Inj) 125 ml @ 0 mls/hr TITRATE IV Last administered on 12/17/16 22:12; Start 12/17/16 at 21:30; Stop 12/19/16 at 18:12; Status DC Lorazepam (Ativan) 0.5 mg DAILY PRN PO ANXIETY Last administered on 12/19/16 08 :29; Start 12/18/16 at 15:45 Diltiazem HCl (Cardizem) 90 mg Q6H PO Last administered on 12/23/16 09:14; Start 12/18/16 at 23:00 Diltiazem HCl (Cardizem) 30 mg NOW ONCE PO Last administered on 12/18/16 19:33 ; Start 12/18/16 at 19:30; Stop 12/18/16 at 19:31; Status DC Diltiazem HCl (Cardizem Inj) 10 mg NOW ONCE IV Last administered on 12/18/16 19:32; Start 12/18/16 at 19:30; Stop 12/18/16 at 19:31; Status DC Alteplase, Recombinant (Cathflo Activase Inj) 2 mg UNSCH X1 IV FLUSH ; Start at 19:45; Stop 12/18/16 at 23:00; Status DC Metoprolol Tartrate (Lopressor Inj) 5 mg ONCE ONCE IV PUSH Last administered on 12/19/16 05:40; Start 12/19/16 at 05:30; Stop 12/19/16 at 05:31; Status DC Digoxin (Lanoxin Inj) 0.5 mg NOW STAT IVS Last administered on 12/19/16 17:19 ; Start 12/19/16 at 16:51; Stop 12/19/16 at 17:04; Status DC Digoxin (Lanoxin Inj) 0.25 mg Q6H IVS Last administered on 12/20/16 03:54; Start 12/19/16 at 23:00; Stop 12/20/16 at 05:01; Status DC Digoxin (Lanoxin) 0.125 mg DAILY PO Last administered on 12/21/16 08:29; Start 12/20/16 at 09:00; Stop 12/21/16 at 11:59; Status DC Furosemide (Lasix Inj) 20 mg ONCE ONCE IV PUSH Last administered on 12/19/16 18:12; Start 12/19/16 at 17:45; Stop 12/19/16 at 17:46; Status DC Potassium Bicarb/ Potassium Chloride 25 meq 25 meq ONCE ONCE PO Last administered on 12/19/16 18:12; Start 12/19/16 at 17:45; Stop 12/19/16 at 17:46; Status DC Diltiazem HCl/ Sodium Chloride (Cardizem Inj/NS Inj) 125 ml @ 0 mls/hr TITRATE IV Last administered on 12/23/16 09:48; Start 12/19/16 at 18:15 Diltiazem HCl (Cardizem Inj) 18 mg NOW ONCE IV Last administered on 12/19/16 19:29; Start 12/19/16 at 18:15; Stop 12/19/16 at 18:16; Status DC Apixaban (Eliquis) 5 mg BID PO ; Start 12/20/16 at 10:00; Stop 12/20/16 at 10:00; Status DC Apixaban (Eliquis) 5 mg BID PO Last administered on 12/21/16 21:02; Start at 10:00; Stop 12/22/16 at 09:49; Status DC Diltiazem HCl (Cardizem Inj) 10 mg ONCE ONCE IV ; Start 12/20/16 at 09:30; Stop 12/20/16 at 09:31; Status DC Prednisone (Deltasone) 10 mg DAILY PO Last administered on 12/23/16 09:15; Start 12/21/16 at 09:00 Atropine Sulfate (Atropine Inj) 1 mg STK-MED ONCE .ROUTE ; Start 12/20/16 at 12: 45; Stop 12/20/16 at 12:46; Status DC Epinephrine HCl (EPINEPHrine (1:10,000) INJ) 1 mg STK-MED ONCE .ROUTE ; Start at 12:45; Stop 12/20/16 at 12:46; Status DC Acetaminophen (Tylenol) 650 mg ONCE ONCE PO Last administered on 12/20/16 18: 39; Start 12/20/16 at 18:45; Stop 12/20/16 at 18:46; Status DC Diphenhydramine HCl (Benadryl) 25 mg ONCE ONCE PO Last administered on 18:39; Start 12/20/16 at 18:45; Stop 12/20/16 at 18:46; Status DC Calcium Carbonate (Tums Chew) 500 mg ONCE ONCE CHEW Last administered on 00:45; Start 12/21/16 at 00:45; Stop 12/21/16 at 00:46; Status DC Calcium Carbonate (Tums Chew) 500 mg ONCE ONCE CHEW Last administered on 04:52; Start 12/21/16 at 05:00; Stop 12/21/16 at 05:01; Status DC Oxycodone HCl (Roxicodone) 15 mg Q4H PRN PO PAIN 6-10 Last administered on 09:34; Start 12/21/16 at 11:00 Digoxin (Lanoxin Inj) 0.5 mg NOW STAT IVS Last administered on 12/21/16 12:41 ; Start 12/21/16 at 11:49; Stop 12/21/16 at 11:50; Status DC Digoxin (Lanoxin Inj) 0.25 mg Q6H IVS Last administered on 12/21/16 17:19; Start 12/21/16 at 18:00; Stop 12/22/16 at 00:01; Status DC Digoxin (Lanoxin) 0.25 mg DAILY PO Last administered on 12/23/16 09:14; Start 12/22/16 at 09:00 Calcium Carbonate (Tums Chew) 500 mg ONCE ONCE CHEW ; Start 12/22/16 at 01:00; Stop 12/22/16 at 01:01; Status DC Heparin Sodium (Porcine) (Heparin Inj) 5,000 units UNSCH PRN IV APTT LESS THAN 25; Start 12/22/16 at 15:15; Stop 12/23/16 at 00:05; Status DC Heparin Sodium (Porcine) 2500 units 2,500 units UNSCH PRN IV APTT 25 TO 39; Start 12/22/16 at 15:15; Stop 12/23/16 at 00:05; Status DC Heparin Sodium/ Dextrose (Heparin-D5W Inj) 250 ml @ 0 mls/hr TITRATE IV ; Start 12/22/16 at 09:15; Stop 12/22/16 at 09:42; Status DC Sucralfate (Carafate Liq) 1 gm ACHS PO Last administered on 12/23/16 09:15; Start 12/22/16 at 11:00 Metoprolol Tartrate (Lopressor Inj) 5 mg Q1HR PRN IV PUSH RAPID HEART RATE Last administered on 12/23/16 05:31; Start 12/22/16 at 09:45 Pantoprazole Sodium (Protonix Inj) 40 mg Q12H IV PUSH Last administered on 09:17; Start 12/22/16 at 10:00 Aspirin 81 mg 81 mg DAILY PO Last administered on 12/23/16 09:16; Start at 09:00 Heparin Sodium/ Dextrose (Heparin-D5W Inj) 250 ml @ 0 mls/hr TITRATE IV Last administered on 12/22/16 12:43; Start 12/22/16 at 10:00; Stop 12/23/16 at 00:05; Status DC Metoprolol Tartrate (Lopressor) 25 mg Q6HR PO Last administered on 12/23/16 11: 18; Start 12/22/16 at 13:00 Furosemide (Lasix Inj) 20 mg ONCE ONCE IV PUSH Last administered on 12/22/16 12:44; Start 12/22/16 at 13:00; Stop 12/22/16 at 13:01; Status DC Furosemide (Lasix Inj) 20 mg ONCE IV PUSH Last administered on 12/23/16 02:31; Start 12/22/16 at 23:00; Stop 12/23/16 at 06:00; Status DC Morphine Sulfate (Morphine Inj) 2 mg Q4H PRN IV PUSH pain >5 Last administered on 12/23/16 11:18; Start 12/23/16 at 00:00 A/P Problem List: (1) Intractable abdominal pain ICD Code: R10.9 Status: Acute (2) Esophageal carcinoma ICD Code: C15.9 Status: Acute (3) SCC (squamous cell carcinoma) ICD Code: C44.92 Status: Acute (4) Hypokalemia ICD Code: E87.6 Status: Acute (5) Lactic acidosis ICD Code: E87.2 Status: Acute (6) Renal insufficiency ICD Code: N28.9 Status: Acute (7) Elevated troponin ICD Code: R74.8 Status: Acute (8) DM (diabetes mellitus) ICD Code: E11.9 Status: Acute (9) Tobacco abuse ICD Code: Z72.0 Status: Acute (10) NSTEMI (non-ST elevated myocardial infarction) ICD Code: I21.4 Status: Acute (11) Bacteremia due to Gram-positive bacteria ICD Code: R78.81 Status: Acute (12) Encephalopathy, metabolic ICD Code: G93.41 Status: Acute Assessment and Plan Hemoptysis -GI aware and following. Pt will need EUS w ? stent placement -Heparin drip DC'ed by Dr. Krause. -Continue monitor H&H q6hrs. -GI following. Septic shock, resolved -Secondary to MSSA bacteremia. MSSA bacteremia -Avireq-m-Czza infection - s/p removal of Lrqstp-y-Vreo by GS. Dressing changes per GS. Appreciate assistance. - Catheter tip culture blood culture and wound culture also positive for MSSA - Continue abx per ID, on IV Ancef, po Rifampin x 6 weeks from port removal and (completed course of Levaquin PO on 12/13). LFTs 12/15/16 wnl, continue antibiotics/Ancef until 01/15/17. -Per infectious disease once patient is ready for discharged to notify her so order can be placed. -Acute metabolic encephalopathy- resolved Agitation Encephalopathy most likely secondary to severe sepsis Continue Thiamine, MVI, folic acid. Acute hypoxemic respiratory failure secondary to COPD exacerbation, resolved. - Emergently intubated and placed on mechanical ventilation 12/02/16, extubated successfully 12/03/16 - Continue with oxygen keep sat >92% - continue neb treatment - s/p IV Solu-Medrol , continue to taper down prednisone. NSTEMI -atrial fibrillation- difficult to control. still on cardizem gtt. meds being adjusted by cards. - s/p PCI to LCx by Dr. Krause on 11/30/16 - Continue ASA/Plavix/metoprolol,cardizem and statin. - Anticoagulation contraindicated secondary to hematemesis -continue to monitor and adjust the regimen as needed. 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 Will need EUS but unable to perform EUS secondary to age fibrillation with RVR. - on Protonix - Oncology following. He will need weekly Erbitux and XRT outpatient. - Status post surgical resection for L parotid SCC. plan for chemo and radiation per oncology. Anemia -Hb now stable at 9, s/p 2 unit PRBC. Per heme/onc recs, transfuse if Hb<8. Monitor H&H. Liver cirrhosis -stable -Follow-up as outpatient. Diabetes - SSI ( medium scale) and Levemir 6 units BID for glycemic control. Monitor BS . -blood sugar levels expected to improve as steroid is being tapered off. -PROPH: - Bilateral lower extremity SCDs. Makenna Schilling MD Dec 23, 2016 14:59
--- NOTE | 2016-12-23 15:11 | HHI.GIFU ---
Subjective Remarks Pt napping in bed. Says he feels better than yesterday. 600cc maroon fluid that he has "coughed up" including clots per RN, since last night. HR is lower today, averaging 110 with 93% sat. Objective Vitals I&O Vital Signs Date Time Temp Pulse Resp B/P Pulse Ox O2 Delivery O2 Flow Rate FiO2 12/23/16 14:00 110 12/23/16 13:00 109 12/23/16 12:00 126 12/23/16 11:00 97.8 150 20 126/74 100 12/23/16 11:00 140 12/23/16 10:00 148 12/23/16 09:49 94 Nasal Cannula 2.50 12/23/16 09:00 148 12/23/16 08:00 133 12/23/16 07:00 130 12/23/16 07:00 98.0 135 16 127/80 93 12/23/16 07:00 93 Nasal Cannula 2.00 12/23/16 06:00 132 12/23/16 05:00 144 12/23/16 05:00 98.6 145 24 119/69 92 12/23/16 04:00 118 12/23/16 03:00 124 12/23/16 02:00 146 12/23/16 01:00 130 12/23/16 00:35 98.3 124 24 105/72 94 12/23/16 00:00 145 12/23/16 00:00 98.3 148 24 123/58 94 12/22/16 23:00 146 12/22/16 22:00 142 12/22/16 21:05 21 12/22/16 21:00 136 12/22/16 20:00 119 12/22/16 20:00 Nasal Cannula 2.00 12/22/16 20:00 98.3 145 24 122/72 94 12/22/16 20:00 94 Nasal Cannula 2.00 12/22/16 19:00 118 12/22/16 18:49 18 12/22/16 18:00 120 12/22/16 17:00 135 12/22/16 16:00 126 12/22/16 15:10 98.4 133 18 116/66 100 12/22/16 15:00 121 I/O 8/7/17 8/7/12/22/16 12/23/16 12/23/16 12/23/16 06:59 14:59 22:59 06:59 14:59 22:59 Intake Total 680 ml 758 ml 678 ml Output Total 780 ml 1550 ml Balance -100 ml 758 ml -872 ml Intake Oral 480 ml 480 ml 100 ml IV Total 200 ml 278 ml 228 ml Packed Cells 350 ml Output Urine Total 550 ml 1550 ml Estimated Blood Loss 230 ml # Bowel Movements 0 Laboratory Laboratory Tests Test 12/22/16 12/22/16 12/22/16 12/23/16 18:15 22:20 22:35 06:20 Hemoglobin 8.4 8.2 8.7 Hematocrit 25.4 25.1 26.6 Activated Partial 45.2 Thromboplast Time Blood Type O NEGATIVE Crossmatch Leukocyte-Reduced Red Blood Cells Blood Bank Comment Test 12/23/16 06:45 Digoxin Level 0.8 Imaging Last Impressions Barium Swallow X-Ray 12/20/16 0000 Signed Impressions: Service Date/Time: Tuesday, December 20, 2016 13:15 - CONCLUSION: 1. The distal half of the esophagus demonstrates irregular luminal narrowing consistent with the patient's history of esophageal adenocarcinoma. 2. Mild dilatation of the esophagus immediately proximal to the esophageal mass. However, there are no signs of obstruction. 3. Small hiatal hernia. Washington Marroquin MD Abdomen MRI 12/17/16 0000 Signed Impressions: Service Date/Time: Saturday, December 17, 2016 13:59 - CONCLUSION: 1. No acute finding is identified to explain the abdominal pain. 2. Stable thickening of the distal esophagus. There is a single mildly enlarged left gastric lymph node measuring 12 x 10 mm. 3. Moderate sized bilateral pleural effusions, left larger than right, with associated compressive atelectasis. Washington Marroquin MD Chest X-Ray 12/12/16 0000 Signed Impressions: Service Date/Time: Monday, December 12, 2016 17:04 - CONCLUSION: Slight CHF and left basilar opacity may be pleural effusion or consolidation. Mali Law MD Head CT 12/01/16 0000 Signed Impressions: Service Date/Time: Thursday, December 01, 2016 07:59 - CONCLUSION: 1. Questionable area of low attenuation left temporal lobe could be artifact versus less likely infarct. MRI may be warranted based on clinical history. 2. No midline shift or mass effect. 3. No intraparenchymal hemorrhage. Jagjit Tapia MD Brain MRI 12/01/16 0000 Signed Impressions: Service Date/Time: Thursday, December 01, 2016 12:07 - CONCLUSION: Normal examination. Barrett Rodriguez MD Abdomen X-Ray 12/01/16 0000 Signed Impressions: Service Date/Time: Thursday, December 01, 2016 16:48 - CONCLUSION: No evidence of obstruction. Feeding tube tip in the distal stomach. Barrett Rodriguez MD Abdomen/Pelvis CT 11/29/16 2356 Signed Impressions: Service Date/Time: Wednesday, November 30, 2016 01:35 - CONCLUSION: 1. Markedly abnormal appearance of the distal esophagus consistent with the history of esophageal carcinoma. 2. Atherosclerotic calcifications of the aorta and iliac vessels. 3. Cirrhotic appearance to the liver with a mildly nodular contour present. Erik Simon MD CT Angiography 11/29/16 [id number] Signed Impressions: Service Date/Time: Wednesday, November 30, 2016 01:35 - CONCLUSION: 1. No evidence for pulmonary embolism or pneumonia. 2. Abnormal appearance of the esophagus with and soft tissue consistent with the history of carcinoma. Erik Simon MD Physical Exam HEENT: Normocephalic; atraumatic; no jaundice. CHEST: CTA, diminished bases CARDIAC: Irregular rhythm. Tachycardic. +murmur ABDOMEN: Soft, obese, nondistended, nontender; no hepatosplenomegaly; bowel sounds x 4- bringing up small to mod amount bloody frothy secretions. EXTREMITIES: pitting edema BUE, BLE SKIN: Normal; no rash; no jaundice. BOX PACKER: lethargic Assessment and Plan Plan ASSESSMENT: - Odynophagia/Dysphagia. Worsening since Barium Swallow on 12/[address] following, pureed diet. Barium Swallow X-Ray 12/20/16--1. The distal half of the esophagus demonstrates irregular luminal narrowing consistent with the patient's history of esophageal adenocarcinoma. 2. Mild dilatation of the esophagus immediately proximal to the esophageal mass. However, there are no signs of obstruction. 3. Small hiatal hernia. Also bringing up small to moderate amount of bloody frothy secretions. He is on Eliquis and this is being changed to Heparin gtt. ? Esophageal stent. - Upper GIB. Bringing up bloody frothy secretions- small to moderate amount.Heparin d/c'd Hgb 8.7, stable - Esophageal cancer. PET Scan (10/28/16)----> negative examination of the head and neck, findings characteristic of esophageal neoplasm. S/P EGD/Colonoscopy (11/20/16)----> There was a long stricture i the mid esophagus and distal esophagus, multiple biopsies were performed, the mucosa of the stomach appeared normal, duodenal mucosa showed no abnormalities in the entire duodenum, retroflexed views revealed a small hiatal hernia; nine sessile polyps ranging from 4-12 mm in size were found at the cecum, in the ascending colon, descending colon, sigmoid colon, and rectum; polypectomy was performed using snare cautery, moderate diverticulosis was noted in the left colon, retroflexed views revealed internal grade I hemorrhoids, a digital rectal exam was performed and revealed no abnormalities of the anus. Pathology revealed invasive adenocarcinoma- distal esophagus, descending colon polyp and rectosigmoid polyp both benign hyperplastic colonic polyp, no adenomatous change or malignancy is seen. EUS when more stable. S/P XRT Simulation. Plan is for erbitux, radiation as outpatient. - Constipation. (+) BM. Miralax - Abnormal imaging of the liver on CT scan, consistent with cirrhosis. Abdomen/ Pelvis CT (11/29/16)----> 1. Markedly abnormal appearance of the distal esophagus consistent with the history of esophageal carcinoma. 2. Atherosclerotic calcifications of the aorta and iliac vessels. 3. Cirrhotic appearance to the liver with a mildly nodular contour present. Abdomen MRI 12/17/16--1. No acute finding is identified to explain the abdominal pain. 2. Stable thickening of the distal esophagus. There is a single mildly enlarged left gastric lymph node measuring 12 x 10 mm. 3. Moderate sized bilateral pleural effusions, left larger than right, with associated compressive atelectasis. Unclear if he has hx of cirrhosis. There is mention of hx of HCV in EMR, but patient has had undetectable viral load as far back as 2001. Pt does report he has a history of HCV and was successfully treated with Interferon/ribavirin in the past. Iron saturation 4.1%, Ferritin 124, Hepatitis C antibodies (+), viral load undetectable, TERRIE negative, ASMA < 20.0, AMA neg, Ceruloplasmin 40 and alpha 1 antitrypsin 298. Labs and imaging consistent with cirrhosis. Pt does not currently drink, but states that he was a heavy drinker in the past. LFT stable. - Afib with RVR. Rate 140's. Cardizem gtt, digoxin, eliquis was changed to heparin gtt. Cardiology following. - Sepsis/Bacteremia/UTI. Urine and Bcx with Staphylococcus aureus. S/P removal of infusaport by GS (12/02). Rpt bcx no growth. Ancef----> 01/15. - AMS, Acute metabolic encephalopathy. Head CT (12/01/16)-----> 1. Questionable area of low attenuation left temporal lobe could be artifact versus less likely infarct. MRI may be warranted based on clinical history. 2. No midline shift or mass effect. 3. No intraparenchymal hemorrhage. Brain MRI (12/01/16 )----> Normal examination. Lethargic, but awakens and follows commands. Confused. - Resp. Failure. Chest X-Ray (12/05/16)----> 1. Cardiomegaly and findings of vascular congestion without overt failure. There has been no significant change when compared to the prior exam. S/P Extubation on 12/03. cedric Carrillo, - NSTEMI, CAD. S/P left heart catheterization (11/30/16) with Dr. Murillo and this revealed RCA 10% lesion mid segment, mild calcifications left main, LAD with calcification from it's proximal segment to its midsegment however, with no significant obstructive lesions, The LAD is giving off to a diagonal which has a 70% lesion in its ostial segment, left circumflex artery with a proximal clot thrombus, S/P percutaneous coronary intervention/bare metal stent to proximal left circumflex. ASA and Plavix, as well as aggressive optimization of coronary artery disease. 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 S/P mohs surgery by a adolescent psychiatrist in September of 2015 and shortly after this, developed a mass near the surgical area. S/P at [facility] with Dr. Valdovinos in June of 2016----> underwent extensive head and neck surgery involving a parotidectomy and radical neck dissection in September of 2016. Because of high risk features of local recurrence with perineural invasion and positive margins, it was recommended that he have concurrent chemoradiation therapy. He was evaluated by Dr. Cross for radiation and seen by Dr. Bell for oncology. PET Scan ()----> negative examination of the head and neck, findings characteristic of esophageal neoplasm. Direct visualization is recommended. - Hx HTN, Hyperlipidemia, DM. per attending. PLAN: - Pureed diet, per ST - plan was for EUS tomorrow but pt now refusing EUS or any other procedure and wants to go home - await palliative care consult - Monitor HH - Transfuse as necessary - Cont. PPI - cont carafate - Cont. Miralax - Monitor labs - Supportive care - Patient seen and examined by Dr. Hanson and myself and this note is written on his behalf Amalia Cardoza Dec 23, 2016 15:11 Amalia Cardoza Dec 23, 2016 15:11 Amalia Cardoza Dec 23, 2016 15:11
[2016-12-23] MEDS: ATORVASTATIN 40 MG TAB PO SCH (23:00)
[2016-12-23] MEDS ORDERED: ACETAMINOPHEN 325 MG TAB PO ONE (23:45)
[2016-12-23] MEDS ORDERED: diphenhydrAMINE HCL 25 MG CAP PO ONE (23:45)
[2016-12-24] VITALS (33 sets, daily range): BP systolic 106–151; BP diastolic 51–80; PULSE 78–146; RESP 16–20; TEMP 97.5–99; O2SAT 93–100
[2016-12-24] MEDS: ceFAZolin 2 GM PREMIX 50 ML IV SCH ×3 (02:19→17:09)
[2016-12-24] MEDS: DILTIAZEM 125 MG/NS 100 ML IV SCH ×6 (02:38→22:48)
[2016-12-24 02:39] LABS: BICARBONATE 31.2 MEQ/L (21.0-32.0); POTASSIUM 3.9 MEQ/L (3.5-5.1)
[2016-12-24] MEDS: MORPHINE SULFATE 4 MG/ML INJ IV PUSH PRN ×2 (02:42→22:52)
[2016-12-24] MEDS: DILTIAZEM HCL 90 MG TAB PO SCH ×5 (04:04→23:00)
[2016-12-24] MEDS: METOPROLOL TARTRATE 25 MG TAB PO SCH ×5 (05:01→23:55)
[2016-12-24] MEDS: INSULIN ASPART SUPPLEMENTAL SCALE SQ SCH ×4 (05:53→21:13)
[2016-12-24] MEDS: SUCRALFATE 1 GM/10 ML CUP PO SCH ×4 (05:55→22:41)
[2016-12-24] MEDS: CHLORHEXIDINE 0.12% (ORAL KIT) 15 ML CUP MT SCH ×2 (08:00→20:00)
[2016-12-24] MEDS: SODIUM CHLORIDE 0.9% FLUSH 10 ML FLUSH IV FLUSH SCH ×3 (09:00→21:00)
[2016-12-24] MEDS: INSULIN DETEMIR 100 UNITS/ML VIAL SQ SCH ×2 (09:00→21:13)
[2016-12-24 09:22] LABS: AUTOMATED NEUTROPHIL # 4.2 TH/MM3 (1.8-7.7); BASOPHIL % 0.2 % (0.0-2.0); EOSINOPHIL # 0.1 TH/MM3 (0-0.4); EOSINOPHIL % 1.1 % (0.0-4.0); HEMATOCRIT 27.7 % (39.0-51.0); HEMO FLAGS DIFF FINAL; LYMPH % 10.5 % (9.0-44.0); LYMPHOCYTE # 0.6 TH/MM3 (1.0-4.8); MEAN CELL VOLUME 87.8 FL (80.0-100.0); MEAN CORPUSCULAR HEMOGLOBIN 28.8 PG (27.0-34.0); MEAN CORPUSCULAR HGB CONC 32.8 % (32.0-36.0); MONO % 14.3 % (0.0-8.0); NEUT % 73.9 % (16.0-70.0); PLATELET COUNT 166 TH/MM3 (150-450); RED BLOOD COUNT 3.15 MIL/MM3 (4.50-5.90); RED CELL DISTRIBUTION WIDTH 20.4 % (11.6-17.2); WHITE BLOOD COUNT 5.6 TH/MM3 (4.0-11.0)
--- NOTE | 2016-12-24 09:28 | HHI.PR ---
Subjective Remarks Follow-up for multiple issues in assessment and plan Patient refused the EUS. Dealt with patient's nurse and the student nurse at the bedside. They were present during the interview the patient. I explained extensively to patient the purpose of the EUS he continued to refuse. I then explain extensively all his medical issues and management. Patient seems to want treatment but the same time wants to go home. Palliative care was consulted last night. Patient denies any shortness of breathing, chest pain, lightheadedness or dizziness or any palpitations. Objective Vitals Vital Signs Date Time Temp Pulse Resp B/P Pulse Ox O2 Delivery O2 Flow Rate FiO2 12/24/16 09:10 100 Nasal Cannula 2.00 12/24/16 07:06 97.8 117 16 117/64 94 12/24/16 06:00 104 12/24/16 05:00 127 12/24/16 04:54 98.6 128 16 141/78 98 12/24/16 04:38 98.4 130 18 138/80 97 12/24/16 04:00 114 12/24/16 03:30 98.4 134 18 117/62 99 12/24/16 03:30 99 Nasal Cannula 2.50 12/24/16 03:00 119 12/24/16 02:00 119 12/24/16 01:00 87 12/24/16 00:00 108 12/23/16 23:00 96 Nasal Cannula 2.50 12/23/16 23:00 110 12/23/16 23:00 98.1 123 18 141/72 96 12/23/16 22:00 110 12/23/16 21:00 106 12/23/16 20:00 108 12/23/16 19:00 106 12/23/16 18:00 103 12/23/16 17:20 95 2.00 12/23/16 17:00 113 12/23/16 16:00 132 12/23/16 15:00 119 12/23/16 15:00 98.6 120 20 103/54 100 12/23/16 14:00 110 12/23/16 13:00 109 12/23/16 12:00 126 12/23/16 11:00 97.8 150 20 126/74 100 12/23/16 11:00 140 12/23/16 10:00 148 12/23/16 09:49 94 Nasal Cannula 2.50 I/O 12/23/16 12/23/16 12/23/16 12/24/16 12/24/16 12/24/16 07:00 15:00 23:00 07:00 15:00 23:00 Intake Total 678 ml 1130 ml 990 ml Output Total 1550 ml 450 ml 200 ml Balance -872 ml 680 ml 790 ml Intake Oral 100 ml 960 ml 240 ml IV Total 228 ml 170 ml 250 ml Packed Cells 350 ml 500 ml Output Urine Total 1550 ml 450 ml 200 ml # Bowel Movements 0 Result Diagram: 12/24/16 0905 12/24/16 0210 Objective Remarks GENERAL: Patient laying in bed and is comfortable. CARDIOVASCULAR: tachycardic irregular heart rhythm. 3/6 murmur. RESPIRATORY: Clear to auscultation. Breath sounds equal bilaterally. No wheezes GASTROINTESTINAL: Abdomen soft, non-tender, nondistended. MUSCULOSKELETAL: sitting up on side of bed, able to move his upper extremities. +2 ower extremity edema. Procedures central line/ arterial line placement intubation cardiac catheterization port removal Medications and IVs Current Medications Sodium Chloride (NS 1000 ml Inj) 1,000 ml @ 999 mls/hr BOLUS ONCE IV Last administered on 11/30/16 01:52; Start 11/30/16 at 00:00; Stop 11/30/16 at 01:00 ; Status DC Morphine Sulfate (Morphine Inj) 4 mg ONCE ONCE IV PUSH Last administered on 01:53; Start 11/30/16 at 01:00; Stop 11/30/16 at 01:01; Status DC Potassium Bicarb/ Potassium Chloride (K-Lyte Cl Eff) 75 meq ONCE ONCE PO Last administered on 11/30/16 01:53; Start 11/30/16 at 01:30; Stop 11/30/16 at 01:31; Status DC Iohexol (Omnipaque 350 Inj) 75 ml STK-MED ONCE IV ; Start 11/30/16 at 01:37; Stop 11/30/16 at 01:38; Status DC Calcium Gluconate 1 gm 1 gm ONCE ONCE IV PUSH Last administered on 11/30/16 02:58; Start 11/30/16 at 02:45; Stop 11/30/16 at 02:46; Status DC Sodium Chloride (NS 1000 ml Inj) 1,000 ml @ 100 mls/hr Q10H IV Last administered on 11/30/16 02:58; Start 11/30/16 at 02:33; Stop 11/30/16 at 13:54 ; Status DC Sodium Chloride (NS Flush) 2 ml UNSCH PRN IV FLUSH FLUSH AFTER USING IV ACCESS Last administered on 12/01/16 21:53; Start 11/30/16 at 02:45 Sodium Chloride (NS Flush) 2 ml BID IV FLUSH Last administered on 12/23/16 23: 00; Start 11/30/16 at 09:00 Ondansetron HCl (Zofran Inj) 4 mg Q6H PRN IVP NAUSEA OR VOMITING; Start at 02:45; Stop 11/30/16 at 13:51; Status DC Acetaminophen (Tylenol) 650 mg Q6H PRN PO FEVER/PAIN SCALE 1 TO 2; Start at 02:45; Stop 11/30/16 at 13:54; Status DC Hydromorphone HCl (Dilaudid Pf Inj) 1 mg Q3H PRN IV Pain 6-10 Last administered on 12/04/16 06:52; Start 11/30/16 at 02:45; Stop 12/04/16 at 09:25 ; Status DC Oxycodone HCl (Roxicodone) 5 mg Q4H PRN PO PAIN SCALE 3 TO 5 Last administered on 12/24/16 05:02; Start 11/30/16 at 02:45 Senna/Docusate Sodium (Rere-Colace) 1 tab BID PO Last administered on 12/23/16 09:16; Start 11/30/16 at 09:00 Magnesium Hydroxide (Milk Of Magnesia Liq) 30 ml Q12H PRN PO MILD - MODERATE CONSTIPATION; Start 11/30/16 at 02:45 Sennosides (Senokot) 17.2 mg Q12H PRN PO MODERATE - SEVERE CONSTIPATION; Start 11/30/16 at 02:45 Bisacodyl (Dulcolax Supp) 10 mg DAILY PRN RECTAL SEVERE CONSITIPATION; Start at 02:45 Lactulose (Lactulose Liq) 30 ml DAILY PRN PO SEVERE CONSITIPATION; Start at 02:45 Pantoprazole Sodium (Protonix Inj) 40 mg Q12H IV PUSH Last administered on 12/12 21:10; Start 11/30/16 at 09:00; Stop 12/13/16 at 08:25; Status DC Miscellaneous Information Patient in critical care unit? Ass... Q361D .XX ; Start 11/30/16 at 05:15 Chlorhexidine Gluconate (Chlorhexidine 2% Cloth) 3 pack DAILY@04 TOPICAL Last administered on 12/05/16 04:00; Start 12/01/16 at 04:00; Stop 12/05/16 at 04:01 ; Status DC Chlorhexidine Gluconate (Chlorhexidine 2% Cloth) 3 pack UNSCH PRN TOPICAL HYGIENIC CARE; Start 11/30/16 at 05:15; Stop 12/05/16 at 05:12; Status DC Aspirin 81 mg 81 mg ONCE ONCE PO Last administered on 11/30/16 12:19; Start 11/30/16 at 12:00; Stop 11/30/16 at 12:01; Status DC Heparin Sodium/ Dextrose (Heparin-D5W Inj) 250 ml @ 0 mls/hr TITRATE IV Last administered on 11/30/16 12:21; Start 11/30/16 at 12:15; Stop 11/30/16 at 13:49 ; Status DC Heparin Sodium (Porcine) (Heparin Inj) 5,000 units UNSCH PRN IV aPTT less than 25; Start 11/30/16 at 12:15; Stop 11/30/16 at 13:49; Status DC Heparin Sodium (Porcine) (Heparin Inj) 2,500 units UNSCH PRN IV aPTT 25 to 39; Start 11/30/16 at 12:15; Stop 11/30/16 at 13:49; Status DC Heparin Sodium (Porcine) 4000 units 4,000 units ONCE ONCE IV Last administered on 11/30/16 12:19; Start 11/30/16 at 12:15; Stop 11/30/16 at 12:16 ; Status DC Heparin Sodium/ Sodium Chloride (Heparin-NS/Pf Inj) 500 ml @ As Directed STK- MED ONCE .ROUTE Last administered on 11/30/16 12:36; Start 11/30/16 at 12:36; Stop 11/30/16 at 12:37; Status DC Midazolam HCl (Versed Inj) 2 mg STK-MED ONCE .ROUTE Last administered on 12:36; Start 11/30/16 at 12:36; Stop 11/30/16 at 12:37; Status DC Fentanyl Citrate (fentaNYL INJ) 100 mcg STK-MED ONCE .ROUTE Last administered on 11/30/16 12:36; Start 11/30/16 at 12:36; Stop 11/30/16 at 12:37; Status DC Dextrose (D50w (Syr) Inj) 50 ml STK-MED ONCE .ROUTE Last administered on 12:53; Start 11/30/16 at 12:53; Stop 11/30/16 at 12:54; Status DC Phenylephrine HCl (Neosynephrine Inj) 40 mg STK-MED ONCE .ROUTE Last administered on 11/30/16 13:04; Start 11/30/16 at 13:04; Stop 11/30/16 at 13:05 ; Status DC Clopidogrel Bisulfate 600 mg 600 mg STK-MED ONCE .ROUTE ; Start 11/30/16 at 13: 25; Stop 11/30/16 at 13:26; Status DC Sodium Chloride (NS 1000 ml Inj) 1,000 ml @ 125 mls/hr Q8H IV Last administered on 11/30/16 21:51; Start 11/30/16 at 13:42; Stop 11/30/16 at 17:41 ; Status DC Acetaminophen (Tylenol) 325 mg Q4H PRN PO PAIN SCALE 1 TO 2 Last administered on 12/13/16 17:13; Start 11/30/16 at 13:45 Aspirin (Aspirin Chew) 81 mg DAILY PO Last administered on 12/21/16 08:29; Start 11/30/16 at 13:45; Stop 12/22/16 at 09:42; Status DC Clopidogrel Bisulfate (Plavix) 600 mg ONCE ONCE PO ; Start 11/30/16 at 13:45; Stop 11/30/16 at 13:47; Status DC Clopidogrel Bisulfate (Plavix) 75 mg DAILY PO Last administered on 12/23/16 09: 15; Start 12/01/16 at 09:00 Miscellaneous Information 1 ONCE ONCE XX ; Start 11/30/16 at 13:45; Stop at 13:49; Status DC Atropine Sulfate (Atropine Inj) 0.5 mg UNSCH PRN IV VAGAL REPONSE; Start at 13:45 Ondansetron HCl (Zofran Inj) 4 mg Q4H PRN IV NAUSEA Last administered on 22:12; Start 11/30/16 at 13:45 Metoprolol Tartrate (Lopressor) 12.5 mg BID PO Last administered on 12/01/16 09:51; Start 11/30/16 at 21:00; Stop 12/14/16 at 16:12; Status DC Atorvastatin Calcium (Lipitor) 10 mg HS PO Last administered on 12/02/16 21:22 ; Start 11/30/16 at 21:00; Stop 12/12/16 at 09:02; Status DC Miscellaneous Information HOLD METFORMIN FOR... Q24H .XX ; Start 11/30/16 at 15: 00; Stop 12/02/16 at 14:59; Status DC Potassium Chloride (KCl 20 Meq Premix Inj) 100 ml @ 50 mls/hr Q2H IV Last administered on 11/30/16 19:24; Start 11/30/16 at 18:00; Stop 11/30/16 at 21:59 ; Status DC Sodium Chloride (NS Flush) 5 ml Q21D IV FLUSH Last administered on 12/21/16 17: 19; Start 11/30/16 at 18:00 Heparin Sodium (Porcine) (Heparin Central Flush) 500 units Q21D IV FLUSH Last administered on 11/30/16 18:04; Start 11/30/16 at 18:00 Sodium Chloride (NS Flush) 5 ml UNSCH PRN IV FLUSH SEE LABEL COMMENTS; Start at 18:00 Heparin Sodium (Porcine) (Heparin Central Flush) 250 units UNSCH PRN IV FLUSH FLUSH AFTER USING IV ACCESS; Start 11/30/16 at 18:00 Lorazepam (Ativan Inj) 0.5 mg ONCE ONCE IV PUSH Last administered on 06:37; Start 12/01/16 at 06:30; Stop 12/01/16 at 06:31; Status DC Lorazepam 0.5 mg 0.5 mg ONCE ONCE IV Last administered on 12/01/16 07:43; Start 12/01/16 at 07:45; Stop 12/01/16 at 07:46; Status DC Potassium Chloride 30 meq/ Sodium Chloride 115 ml @ 38.333 mls/ hr Q3H IV- CENTRAL Last administered on 12/01/16 12:43; Start 12/01/16 at 08:30; Stop at 14:29; Status DC Vancomycin HCl 2100 mg/Sodium Chloride 521 ml @ 250 mls/hr ONCE ONCE IV Last administered on 12/01/16 12:43; Start 12/01/16 at 12:00; Stop 12/01/16 at 14:06 ; Status DC Pharmacy Profile Note 0 ml @ 0 mls/hr UNSCH OTHER ; Start 12/01/16 at 10:30; Status UNV Pharmacy Profile Note 0 ml @ 0 mls/hr UNSCH OTHER ; Start 12/01/16 at 11:00; Stop 12/01/16 at 13:07; Status DC Vancomycin HCl 1250 mg/Sodium Chloride 262.5 ml @ 262.5 mls/ hr Q24H IV ; Start 12/02/16 at 09:00; Stop 12/02/16 at 09:00; Status DC Ceftriaxone Sodium 2000 mg/ Sodium Chloride 100 ml @ 200 mls/hr Q24H IV ; Start 12/01/16 at 14:00; Stop 12/01/16 at 16:10; Status DC Thiamine HCl/ Sodium Chloride (Thiamine Inj/NS Inj) 101 ml @ 101 mls/hr DAILY IV Last administered on 12/01/16 14:09; Start 12/01/16 at 13:00; Stop at 08:28; Status DC Flumazenil (Romazicon Inj) 0.2 mg Q1M PRN IV PUSH SEE LABEL COMMENTS; Start at 13:00 Lorazepam (Ativan) 1 mg Q4H PRN PO CIWA 8 - 10; Start 12/01/16 at 13:00; Stop 12/04/16 at 09:29; Status DC Lorazepam (Ativan Inj) 1 mg Q4H PRN IV PUSH CIWA 8 - 10 Last administered on 21:52; Start 12/01/16 at 13:00; Stop 12/04/16 at 09:29; Status DC Lorazepam (Ativan) 2 mg Q2H PRN PO CIWA 11-14; Start 12/01/16 at 13:00; Stop at 09:29; Status DC Lorazepam (Ativan Inj) 2 mg Q2H PRN IV PUSH CIWA 11-14 Last administered on 04:37; Start 12/01/16 at 13:00; Stop 12/04/16 at 09:29; Status DC Lorazepam (Ativan Inj) 2 mg Q1H PRN IV PUSH CIWA 15-20; Start 12/01/16 at 13:00 ; Stop 12/04/16 at 09:29; Status DC Lorazepam 2 mg 2 mg Q15M PRN IV PUSH CIWA > 20; Start 12/01/16 at 13:00; Stop 12/04/16 at 09:29; Status DC Sodium Chloride 1,000 ml @ 999 mls/hr BOLUS ONCE IV Last administered on 12/01 14:09; Start 12/01/16 at 13:00; Stop 12/01/16 at 14:06; Status DC Sodium Chloride (NS 1000 ml Inj) 1,000 ml @ 999 mls/hr BOLUS ONCE IV Last administered on 12/01/16 14:09; Start 12/01/16 at 13:00; Stop 12/01/16 at 14:06 ; Status DC Morphine Sulfate 8 mg 8 mg STK-MED ONCE .ROUTE Last administered on 12/01/16 14:06; Start 12/01/16 at 14:04; Stop 12/01/16 at 14:05; Status DC Dexmedetomidine HCl/Sodium Chloride (Precedex Inj/NS Inj) 52 ml @ 0 mls/hr TITRATE IV ; Start 12/01/16 at 14:30; Stop 12/03/16 at 07:50; Status DC Albuterol/ Ipratropium (Duoneb Neb) 1 ampule Q6HR NEB NEB Last administered on 12/05/16 15:58; Start 12/01/16 at 16:00; Stop 12/05/16 at 16:00; Status DC Albuterol/ Ipratropium 1 ampule 1 ampule Q2HR NEB PRN NEB SHORTNESS OF BREATH Last administered on 12/17/16 01:21; Start 12/01/16 at 14:30 Cefazolin Sodium/ Dextrose 50 ml @ 100 mls/hr Q8H IV Last administered on 12/03 08:27; Start 12/01/16 at 18:00; Stop 12/06/16 at 09:11; Status DC Pharmacy Profile Note 0 ml @ 0 mls/hr UNSCH OTHER ; Start 12/01/16 at 16:15; Stop 12/03/16 at 10:51; Status DC Sodium Chloride (NS 1000 ml Inj) 1,000 ml @ 50 mls/hr Q20H IV Last administered on 12/04/16 05:40; Start 12/01/16 at 16:30; Stop 12/04/16 at 09:25 ; Status DC Acetaminophen 650 mg 650 mg Q6H PRN PO FEVER Last administered on 12/02/16 01 :07; Start 12/01/16 at 17:30 Vancomycin HCl/ Sodium Chloride (Vancomycin Inj/ NS 500 ml Inj) 521 ml @ 250 mls/hr Q18H IV Last administered on 12/02/16 05:36; Start 12/02/16 at 06:00; Stop 12/02/16 at 11:38; Status DC Miscellaneous Information SPECIFIC LAB TO BE DRAWN:[facility]ANCO TROUGH DATE TO... ONCE ONCE .XX ; Start 12/03/16 at 17:45; Stop 12/03/16 at 17:46; Status Cancel Sodium Chloride (NS 1000 ml Inj) 1,000 ml @ 999 mls/hr BOLUS ONCE IV Last administered on 12/02/16 06:30; Start 12/02/16 at 06:30; Stop 12/02/16 at 07:30 ; Status DC Methylprednisolone Sodium Succinate (SoluMEDROL INJ) 125 mg ONCE STAT IV PUSH Last administered on 12/02/16 07:14; Start 12/02/16 at 06:52; Stop 12/02/16 at 06:59; Status DC Methylprednisolone Sodium Succinate (SoluMEDROL INJ) 60 mg Q8HR IV PUSH Last administered on 12/05/16 05:17; Start 12/02/16 at 14:00; Stop 12/05/16 at 09:00 ; Status DC Etomidate (Amidate Inj) 20 mg STK-MED ONCE .ROUTE Last administered on 08:07; Start 12/02/16 at 07:29; Stop 12/02/16 at 07:30; Status DC Midazolam HCl (Versed Inj) 5 mg STK-MED ONCE .ROUTE Last administered on 08:07; Start 12/02/16 at 07:29; Stop 12/02/16 at 07:30; Status DC Rocuronium Marina (Zemuron Inj) 50 mg STK-MED ONCE .ROUTE Last administered on 12/02/16 08:08; Start 12/02/16 at 07:30; Stop 12/02/16 at 07:31; Status DC Enoxaparin Sodium (Lovenox Inj) 40 mg Q24H SQ Last administered on 12/20/16 09: 04; Start 12/02/16 at 09:00; Stop 12/20/16 at 09:13; Status DC Chlorhexidine Gluconate 15 ml 15 ml BID@08,20 MT Last administered on 12/23/16 20:00; Start 12/02/16 at 08:00 Propofol 100 ml @ 0 mls/hr TITRATE IV Last administered on 12/02/16 19:59; Start 12/02/16 at 08:00; Stop 12/03/16 at 07:50; Status DC Fentanyl Citrate (fentaNYL DRIP) 250 ml @ 0 mls/hr TITRATE IV Last administered on 12/03/16 04:05; Start 12/02/16 at 08:00; Stop 12/04/16 at 09:25 ; Status DC Metoprolol Tartrate 2.5 mg 2.5 mg Q6H PRN IV PUSH HR >110 Last administered on 12/20/16 18:38; Start 12/02/16 at 08:15; Stop 12/22/16 at 09:53; Status DC Multivitamins/ Thiamine HCl/ Folic Acid/Sodium Chloride (Mvi-12 Inj/ Thiamine Inj/ Folvite Inj/1/2 NS 500 ml Inj) 511.2 ml @ 125 mls/hr DAILY IV Last administered on 12/04/16 09:21; Start 12/02/16 at 09:00; Stop 12/05/16 at 09:00 ; Status DC Sodium Bicarbonate (Sodium Bicarbonate 8.4% Inj) 50 meq STK-MED ONCE .ROUTE ; Start 12/02/16 at 09:06; Stop 12/02/16 at 09:07; Status DC Sodium Bicarbonate 50 meq 50 meq NOW ONCE IV PUSH Last administered on 11:16; Start 12/02/16 at 09:45; Stop 12/02/16 at 09:46; Status DC Vasopressin/ Dextrose (Pitressin Inj/ D5W 100 ml Inj) 100 ml @ 4.5 mls/hr [id number] IV Last administered on 12/03/16 04:17; Start 12/02/16 at 11:04; Stop 12/06/16 at 07:32; Status DC Sodium Bicarbonate (Sodium Bicarbonate 8.4% Inj) 50 meq ONCE ONCE IV PUSH Last administered on 12/02/16 11:38; Start 12/02/16 at 11:15; Stop 12/02/16 at 11:22; Status DC Rocuronium Marina 50 mg 50 mg BOLUS ONCE IV Last administered on 12/02/16 11 :39; Start 12/02/16 at 11:15; Stop 12/02/16 at 11:22; Status DC Sodium Bicarbonate 50 ml @ As Directed STK-MED ONCE .ROUTE Last administered on 12/02/16 15:53; Start 12/02/16 at 11:06; Stop 12/02/16 at 11:07; Status DC Vancomycin HCl 2000 mg/Sodium Chloride 520 ml @ 250 mls/hr Q18H IV Last administered on 12/02/16 23:46; Start 12/03/16 at 00:00; Stop 12/03/16 at 10:51 ; Status DC Norepinephrine Bitartrate (Levophed-Dextrose Drip) 250 ml @ 0 mls/hr TITRATE IV Last administered on 12/03/16 04:05; Start 12/02/16 at 15:15; Stop 12/08/16 at 10:23; Status DC Terbutaline Sulfate 1 mg 1 mg UNSCH PRN SQ For Extravasation; Start 12/02/16 at 15:15 Sodium Bicarbonate/ Sterile Water (Sodium Bicarbonate 8.4% Inj/Sterile Water For Inj) 1,000 ml @ 150 mls/hr Q6H40M IV Last administered on 12/03/16 04:16 ; Start 12/02/16 at 16:00; Stop 12/03/16 at 07:49; Status DC Iohexol (OMNIPAQUE 350 INJ (Subscription Agent)) 100 ml STK-MED ONCE OTHER ; Start at 12:30; Stop 12/02/16 at 15:48; Status DC Lidocaine HCl (Xylocaine 1% Inj (50 ml)) 50 ml STK-MED ONCE .ROUTE ; Start 12/02 at 19:06; Stop 12/02/16 at 19:07; Status DC Dextrose (D50w (Vial) Inj) 50 ml UNSCH PRN IV HYPOGLYCEMIA-SEE COMMENTS; Start 12/02/16 at 22:30 Glucagon (Glucagon Inj) 1 mg UNSCH PRN OTHER HYPOGLYCEMIA-SEE COMMENTS; Start 12/02/16 at 22:30 Insulin Aspart 1 1 Q4HR SQ Last administered on 12/14/16 04:00; Start at 00:00; Stop 12/14/16 at 08:16; Status DC Midazolam HCl (Versed 100 Mg/ ml Inj) 100 ml @ 0 mls/hr TITRATE IV ; Start 12/03 at 08:00; Stop 12/04/16 at 09:25; Status DC Polyethylene Glycol (Miralax) 17 gm DAILY PO Last administered on 12/23/16 09: 15; Start 12/04/16 at 09:00 Bumetanide (Bumex Inj) 1 mg STK-MED ONCE .ROUTE ; Start 12/03/16 at 11:46; Stop 12/03/16 at 11:47; Status DC Bumetanide 1 mg 1 mg NOW ONCE IV PUSH ; Start 12/03/16 at 15:00; Stop 12/03/16 at 15:01; Status DC Cefepime HCl/ Sodium Chloride (Maxipime Inj/NS Inj) 100 ml @ 200 mls/hr Q8H IV Last administered on 12/06/16 08:16; Start 12/03/16 at 17:00; Stop 12/06/16 at 09:08; Status DC Bumetanide 1 mg 1 mg ONCE ONCE IV PUSH Last administered on 12/04/16 10:00; Start 12/04/16 at 09:30; Stop 12/04/16 at 09:32; Status DC Potassium Chloride (KCl 40 Meq Premix Inj) 100 ml @ 25 mls/hr Q4H IV ; Start at 10:00; Stop 12/04/16 at 17:59; Status DC Morphine Sulfate 2 mg 2 mg Q3H PRN IV PUSH pain 5-10 Last administered on t 05:16; Start 12/04/16 at 09:30; Stop 12/05/16 at 09:01; Status DC Potassium Chloride 100 ml @ 50 mls/hr Q2H PRN IV For Potassium 2.8 - 3.2 mEq/ L Last administered on 12/04/16t 21:17; Start 12/04/16 at 09:30; Stop 12/16/16 at 07:44; Status DC Potassium Chloride (KCl 20 Meq Premix Inj) 100 ml @ 50 mls/hr Q2H PRN IV For Potassium 2.8 - 3.2 mEq/L; Start 12/04/16 at 09:30; Stop 12/16/16 at 07:44; Status DC Potassium Bicarb/ Potassium Chloride 50 meq 50 meq UNSCH PRN PO For Potassium 3.3 - 3.5 mEq/L; Start 12/04/16 at 09:30; Stop 12/16/16 at 07:44; Status DC Potassium Chloride 100 ml @ 25 mls/hr UNSCH PRN IV For Potassium 3.3 - 3.5 mEq /L; Start 12/04/16 at 09:30; Stop 12/16/16 at 07:44; Status DC Potassium Chloride 100 ml @ 50 mls/hr Q2H PRN IV For Potassium 3.3 - 3.5 mEq/L ; Start 12/04/16 at 09:30; Stop 12/16/16 at 07:44; Status DC Magnesium Sulfate/ Sodium Chloride (Magnesium Sulfate Inj/NS Inj) 100 ml @ 50 mls/hr UNSCH PRN IV For Magnesium 0.9 - 1.1 mg/dL; Start 12/04/16 at 09:30; Stop 12/16/16 at 07:44; Status DC Magnesium Oxide 800 mg 800 mg UNSCH PRN PO For Magnesium 1.2 - 1.6 mg/dL; Start 12/04/16 at 09:30; Stop 12/16/16 at 07:44; Status DC Magnesium Sulfate/ Sodium Chloride (Magnesium Sulfate Inj/NS Inj) 100 ml @ 50 mls/hr UNSCH PRN IV For Magnesium 1.2 - 1.6 mg/dL; Start 12/04/16 at 09:30; Stop 12/16/16 at 07:44; Status DC Potassium Phosphate 2000 mg 2,000 mg Q4H PRN PO For Phosphorus < 2.5 mg/dL; Start 12/04/16 at 09:30; Stop 12/16/16 at 07:45; Status DC Sodium Phosphate/ Sodium Chloride (Sodium Phosphate Inj/NS 250 ml Inj) 250 ml @ 42 mls/hr UNSCH PRN IV For Phosphorus < 2.5 mg/dL Last administered on 06:41; Start 12/04/16 at 09:30; Stop 12/16/16 at 07:45; Status DC Potassium Phosphate 2000 mg 2,000 mg UNSCH PRN PO/TUBE SEE LABEL COMMENTS; Start 12/04/16 at 09:30; Stop 12/16/16 at 07:45; Status DC Potassium Phosphate/Sodium Chloride (Potassium Phosphate Inj/NS 250 ml Inj) 260 ml @ 42 mls/hr UNSCH PRN IV SEE LABEL COMMENTS; Start 12/04/16 at 09:30; Stop 12/16/16 at 07:45; Status DC Potassium Bicarb/ Potassium Chloride (K-Lyte Cl Eff) 25 meq ONCE ONCE PO ; Start 12/04/16 at 09:30; Stop 12/04/16 at 09:42; Status DC Bumetanide 1 mg 1 mg ONCE ONCE IV PUSH Last administered on 12/04/16 12:32; Start 12/04/16 at 12:00; Stop 12/04/16 at 12:01; Status DC Calcium Gluconate/ Sodium Chloride (Calcium Gluconate Inj/NS Inj) 110 ml @ 110 mls/hr ONCE ONCE IV Last administered on 12/05/16 10:29; Start 12/05/16 at 09 :30; Stop 12/05/16 at 10:29; Status DC Methylprednisolone Sodium Succinate (SoluMEDROL INJ) 40 mg Q12HR IV PUSH Last administered on 12/10/16 20:09; Start 12/05/16 at 09:00; Stop 12/11/16 at 09:04 ; Status DC Thiamine HCl (Vitamin B1) 100 mg DAILY PO Last administered on 12/23/16 09:16; Start 12/05/16 at 09:00 Multivitamins (Theragran) 1 tab DAILY PO Last administered on 12/23/16 09:16; Start 12/05/16 at 09:00 Folic Acid (Folate) 1 mg DAILY PO Last administered on 12/23/16 09:14; Start at 09:00 Morphine Sulfate (Morphine Inj) 2 mg Q2H PRN IV PUSH pain 5-10 Last administered on 12/17/16 01:20; Start 12/05/16 at 10:30; Stop 12/17/16 at 10:52; Status DC Albuterol/ Ipratropium 1 ampule 1 ampule Q4HR NEB NEB Last administered on 03:40; Start 12/06/16 at 08:00; Stop 12/10/16 at 08:00; Status DC Sodium Chloride (1/2 NS 1000 ml Inj) 1,000 ml @ 125 mls/hr Q8H IV Last administered on 12/07/16 21:33; Start 12/06/16 at 07:30; Stop 12/08/16 at 10:23 ; Status DC Rifampin 300 mg 300 mg Q12HR PO Last administered on 12/23/16 09:15; Start at 09:15; Stop 01/15/17 at 23:00 Cefazolin Sodium/ Dextrose (Ancef 2 Gm Premix) 50 ml @ 100 mls/hr Q8H IV Last administered on 12/24/16 02:19; Start 12/06/16 at 10:00; Stop 01/15/17 at 23:00 Levofloxacin (Levaquin) 750 mg Q24H PO Last administered on 12/12/16 08:58; Start 12/06/16 at 10:00; Stop 12/13/16 at 09:59; Status DC Insulin Detemir (Levemir Inj) 5 units Q12HR SQ Last administered on 12/13/16 21:29; Start 12/07/16 at 09:00; Stop 12/14/16 at 08:17; Status DC Methylnaltrexone Marina (Relistor Inj) 12 mg ONCE ONCE SQ Last administered on 12/07/16 16:58; Start 12/07/16 at 15:00; Stop 12/07/16 at 15:11; Status DC Metoprolol Tartrate (Lopressor Inj) 2.5 mg ONCE ONCE IV PUSH Last administered on 12/08/16 15:15; Start 12/08/16 at 15:00; Stop 12/08/16 at 15:01 ; Status DC Diltiazem HCl (Cardizem Inj) 10 mg ONCE ONCE IV ; Start 12/08/16 at 15:15; Stop 12/08/16 at 16:09; Status DC Metoprolol Tartrate (Lopressor) 50 mg Q12HR PO Last administered on 12/13/16 20:52; Start 12/08/16 at 21:00; Stop 12/14/16 at 09:12; Status DC Diltiazem HCl (Cardizem) 60 mg Q6H PO Last administered on 12/18/16 17:25; Start 12/09/16 at 05:00; Stop 12/18/16 at 18:39; Status DC Lorazepam (Ativan Inj) 1 mg Q4H PRN IV PUSH ANXIETY AND/OR AGITATION Last administered on 12/19/16 01:59; Start 12/09/16 at 15:15 Haloperidol Lactate (Haldol Inj) 2 mg Q8H PRN IM AGITATION AND/OR HALLUCINATION ; Start 12/10/16 at 17:00 Methylprednisolone Sodium Succinate (SoluMEDROL INJ) 20 mg Q12HR IV PUSH Last administered on 12/13/16 20:50; Start 12/11/16 at 21:00; Stop 12/13/16 at 22:00 ; Status DC Atorvastatin Calcium (Lipitor) 40 mg HS PO Last administered on 12/23/16 23:00 ; Start 12/12/16 at 21:00 Sodium Chloride (NS Flush) See Protocol DAILY IV FLUSH Last administered on 12/23 09:16; Start 12/13/16 at 09:00 Sodium Chloride (NS Flush) See Protocol UNSCH PRN IV FLUSH SEE PROTOCOL TABLE; Start 12/12/16 at 17:00 Heparin Sodium (Porcine) (Heparin Central Flush) See Protocol DAILY IV FLUSH Last administered on 12/23/16 09:17; Start 12/13/16 at 09:00 Heparin Sodium (Porcine) (Heparin Central Flush) See Protocol UNSCH PRN IV FLUSH SEE PROTOCOL TABLE; Start 12/12/16 at 17:00 Sodium Chloride UNSCH PRN IV FLUSH SEE PROTOCOL TABLE Last administered on 12/19 01:59; Start 12/12/16 at 17:00 Sodium Chloride (NS 250 ml Inj) 250 ml @ 15 mls/hr ONCE ONCE IV Last administered on 12/13/16 09:34; Start 12/13/16 at 08:15; Stop 12/14/16 at 00:54 ; Status DC Acetaminophen (Tylenol) 650 mg Q4H PRN PO SEE LABEL COMMENTS; Start 12/13/16 at 08:15; Stop 12/13/16 at 12:16; Status DC Diphenhydramine HCl (Benadryl) 25 mg Q4H PRN PO SEE LABEL COMMENTS; Start 12/13 at 08:15; Stop 12/13/16 at 12:16; Status Cancel Prednisone (Deltasone) 40 mg DAILY PO Last administered on 12/16/16 08:53; Start 12/14/16 at 09:00; Stop 12/16/16 at 09:28; Status DC Pantoprazole Sodium (Protonix) 40 mg Q12HR PO Last administered on 12/22/16 09: 01; Start 12/13/16 at 09:00; Stop 12/22/16 at 09:49; Status DC Diphenhydramine HCl (Benadryl) 25 mg Q4H PRN PO SEE LABEL COMMENTS; Start 12/13 at 17:15; Stop 12/13/16 at 21:16; Status DC Insulin Aspart (NovoLOG SUPPLEMENTAL SCALE) 1 ACHS SLIDING SCALE SQ Last administered on 12/23/16 23:30; Start 12/14/16 at 11:00 Insulin Detemir (Levemir Inj) 6 units Q12HR SQ Last administered on 12/23/16 09 :31; Start 12/14/16 at 09:00 Metoprolol Tartrate (Lopressor) 75 mg Q12HR PO Last administered on 12/14/16 12:00; Start 12/14/16 at 12:00; Stop 12/14/16 at 16:10; Status DC Etomidate (Amidate Inj) 25 mg ONCE ONCE IVP ; Start 12/14/16 at 12:15; Stop at 18:48; Status DC Fentanyl Citrate (fentaNYL INJ) 200 mcg ONCE ONCE IV ; Start 12/14/16 at 12:15 ; Stop 12/14/16 at 18:48; Status DC Succinylcholine Chloride (Quelicin Inj) 150 mg ONCE ONCE IV ; Start 12/14/16 at 12:15; Stop 12/14/16 at 18:48; Status DC Metoprolol Tartrate (Lopressor) 100 mg Q12HR PO Last administered on 12/22/16 09:01; Start 12/14/16 at 21:00; Stop 12/22/16 at 12:48; Status DC Metoprolol Tartrate 25 mg 25 mg ONCE ONCE PO Last administered on 12/14/16 16 :55; Start 12/14/16 at 16:15; Stop 12/14/16 at 16:16; Status DC Iron Sucrose/ Sodium Chloride (Venofer Inj/NS Inj) 105 ml @ 105 mls/hr DAILY IV Last administered on 12/18/16 08:01; Start 12/16/16 at 09:00; Stop 12/18/16 at 09:59; Status DC Nitroglycerin (Nitrostat Sl) 0.4 mg Q5M PRN SL CHEST PAIN; Start 12/16/16 at 00: 15 Prednisone (Deltasone) 20 mg DAILY PO Last administered on 12/20/16 09:04; Start 12/17/16 at 09:00; Stop 12/20/16 at 10:01; Status DC Gadodiamide (Omniscan Pf Inj) 21 ml STK-MED ONCE IV Last administered on 15:41; Start 12/17/16 at 15:41; Stop 12/17/16 at 15:42; Status DC Oxycodone HCl (Roxicodone) 10 mg Q4H PRN PO PAIN 6-10 Last administered on 02:37; Start 12/17/16 at 19:00; Stop 12/21/16 at 08:51; Status DC Diltiazem HCl (Cardizem Inj) 20 mg ONCE PRN IV if HR 110-130 Last administered on 12/17/16 21:49; Start 12/17/16 at 21:30; Stop 12/17/16 at 22:30; Status DC Diltiazem HCl 20 mg 20 mg ONCE ONCE IVP ; Start 12/17/16 at 21:30; Stop 12/17/16 at 21:40; Status DC Diltiazem HCl/ Sodium Chloride (Cardizem Inj/NS Inj) 125 ml @ 0 mls/hr TITRATE IV Last administered on 12/17/16 22:12; Start 12/17/16 at 21:30; Stop 12/19/16 at 18:12; Status DC Lorazepam (Ativan) 0.5 mg DAILY PRN PO ANXIETY Last administered on 12/19/16 08 :29; Start 12/18/16 at 15:45 Diltiazem HCl (Cardizem) 90 mg Q6H PO Last administered on 12/24/16 04:04; Start 12/18/16 at 23:00 Diltiazem HCl (Cardizem) 30 mg NOW ONCE PO Last administered on 12/18/16 19:33 ; Start 12/18/16 at 19:30; Stop 12/18/16 at 19:31; Status DC Diltiazem HCl (Cardizem Inj) 10 mg NOW ONCE IV Last administered on 12/18/16 19:32; Start 12/18/16 at 19:30; Stop 12/18/16 at 19:31; Status DC Alteplase, Recombinant (Cathflo Activase Inj) 2 mg UNSCH X1 IV FLUSH ; Start at 19:45; Stop 12/18/16 at 23:00; Status DC Metoprolol Tartrate (Lopressor Inj) 5 mg ONCE ONCE IV PUSH Last administered on 12/19/16 05:40; Start 12/19/16 at 05:30; Stop 12/19/16 at 05:31; Status DC Digoxin (Lanoxin Inj) 0.5 mg NOW STAT IVS Last administered on 12/19/16 17:19 ; Start 12/19/16 at 16:51; Stop 12/19/16 at 17:04; Status DC Digoxin (Lanoxin Inj) 0.25 mg Q6H IVS Last administered on 12/20/16 03:54; Start 12/19/16 at 23:00; Stop 12/20/16 at 05:01; Status DC Digoxin (Lanoxin) 0.125 mg DAILY PO Last administered on 12/21/16 08:29; Start 12/20/16 at 09:00; Stop 12/21/16 at 11:59; Status DC Furosemide (Lasix Inj) 20 mg ONCE ONCE IV PUSH Last administered on 12/19/16 18:12; Start 12/19/16 at 17:45; Stop 12/19/16 at 17:46; Status DC Potassium Bicarb/ Potassium Chloride 25 meq 25 meq ONCE ONCE PO Last administered on 12/19/16 18:12; Start 12/19/16 at 17:45; Stop 12/19/16 at 17:46; Status DC Diltiazem HCl/ Sodium Chloride (Cardizem Inj/NS Inj) 125 ml @ 0 mls/hr TITRATE IV Last administered on 12/24/16 02:38; Start 12/19/16 at 18:15 Diltiazem HCl (Cardizem Inj) 18 mg NOW ONCE IV Last administered on 12/19/16 19:29; Start 12/19/16 at 18:15; Stop 12/19/16 at 18:16; Status DC Apixaban (Eliquis) 5 mg BID PO ; Start 12/20/16 at 10:00; Stop 12/20/16 at 10:00; Status DC Apixaban (Eliquis) 5 mg BID PO Last administered on 12/21/16 21:02; Start at 10:00; Stop 12/22/16 at 09:49; Status DC Diltiazem HCl (Cardizem Inj) 10 mg ONCE ONCE IV ; Start 12/20/16 at 09:30; Stop 12/20/16 at 09:31; Status DC Prednisone (Deltasone) 10 mg DAILY PO Last administered on 12/23/16 09:15; Start 12/21/16 at 09:00 Atropine Sulfate (Atropine Inj) 1 mg STK-MED ONCE .ROUTE ; Start 12/20/16 at 12: 45; Stop 12/20/16 at 12:46; Status DC Epinephrine HCl (EPINEPHrine (1:10,000) INJ) 1 mg STK-MED ONCE .ROUTE ; Start at 12:45; Stop 12/20/16 at 12:46; Status DC Acetaminophen (Tylenol) 650 mg ONCE ONCE PO Last administered on 12/20/16 18: 39; Start 12/20/16 at 18:45; Stop 12/20/16 at 18:46; Status DC Diphenhydramine HCl (Benadryl) 25 mg ONCE ONCE PO Last administered on 18:39; Start 12/20/16 at 18:45; Stop 12/20/16 at 18:46; Status DC Calcium Carbonate (Tums Chew) 500 mg ONCE ONCE CHEW Last administered on 00:45; Start 12/21/16 at 00:45; Stop 12/21/16 at 00:46; Status DC Calcium Carbonate (Tums Chew) 500 mg ONCE ONCE CHEW Last administered on 04:52; Start 12/21/16 at 05:00; Stop 12/21/16 at 05:01; Status DC Oxycodone HCl (Roxicodone) 15 mg Q4H PRN PO PAIN 6-10 Last administered on 15:22; Start 12/21/16 at 11:00 Digoxin (Lanoxin Inj) 0.5 mg NOW STAT IVS Last administered on 12/21/16 12:41 ; Start 12/21/16 at 11:49; Stop 12/21/16 at 11:50; Status DC Digoxin (Lanoxin Inj) 0.25 mg Q6H IVS Last administered on 12/21/16 17:19; Start 12/21/16 at 18:00; Stop 12/22/16 at 00:01; Status DC Digoxin (Lanoxin) 0.25 mg DAILY PO Last administered on 12/23/16 09:14; Start 12/22/16 at 09:00 Calcium Carbonate (Tums Chew) 500 mg ONCE ONCE CHEW ; Start 12/22/16 at 01:00; Stop 12/22/16 at 01:01; Status DC Heparin Sodium (Porcine) (Heparin Inj) 5,000 units UNSCH PRN IV APTT LESS THAN 25; Start 12/22/16 at 15:15; Stop 12/23/16 at 00:05; Status DC Heparin Sodium (Porcine) 2500 units 2,500 units UNSCH PRN IV APTT 25 TO 39; Start 12/22/16 at 15:15; Stop 12/23/16 at 00:05; Status DC Heparin Sodium/ Dextrose (Heparin-D5W Inj) 250 ml @ 0 mls/hr TITRATE IV ; Start 12/22/16 at 09:15; Stop 12/22/16 at 09:42; Status DC Sucralfate (Carafate Liq) 1 gm ACHS PO Last administered on 12/24/16 05:55; Start 12/22/16 at 11:00 Metoprolol Tartrate (Lopressor Inj) 5 mg Q1HR PRN IV PUSH RAPID HEART RATE Last administered on 12/23/16 05:31; Start 12/22/16 at 09:45 Pantoprazole Sodium (Protonix Inj) 40 mg Q12H IV PUSH Last administered on 23:00; Start 12/22/16 at 10:00 Aspirin 81 mg 81 mg DAILY PO Last administered on 12/23/16 09:16; Start at 09:00 Heparin Sodium/ Dextrose (Heparin-D5W Inj) 250 ml @ 0 mls/hr TITRATE IV Last administered on 12/22/16 12:43; Start 12/22/16 at 10:00; Stop 12/23/16 at 00:05; Status DC Metoprolol Tartrate (Lopressor) 25 mg Q6HR PO Last administered on 12/24/16 05: 01; Start 12/22/16 at 13:00 Furosemide (Lasix Inj) 20 mg ONCE ONCE IV PUSH Last administered on 12/22/16 12:44; Start 12/22/16 at 13:00; Stop 12/22/16 at 13:01; Status DC Furosemide (Lasix Inj) 20 mg ONCE IV PUSH Last administered on 12/23/16 02:31; Start 12/22/16 at 23:00; Stop 12/23/16 at 06:00; Status DC Morphine Sulfate (Morphine Inj) 2 mg Q4H PRN IV PUSH pain >5 Last administered on 12/24/16 02:42; Start 12/23/16 at 00:00 Diphenhydramine HCl (Benadryl) 25 mg ONCE ONCE PO Last administered on 04:04; Start 12/23/16 at 23:45; Stop 12/23/16 at 23:46; Status DC Acetaminophen (Tylenol) 650 mg ONCE ONCE PO Last administered on 12/24/16 04: 04; Start 12/23/16 at 23:45; Stop 12/23/16 at 23:46; Status DC Furosemide (Lasix Inj) 20 mg DAILY IV PUSH ; Start 12/24/16 at 09:15 A/P Problem List: (1) Intractable abdominal pain ICD Code: R10.9 Status: Acute (2) Esophageal carcinoma ICD Code: C15.9 Status: Acute (3) SCC (squamous cell carcinoma) ICD Code: C44.92 Status: Acute (4) Hypokalemia ICD Code: E87.6 Status: Acute (5) Lactic acidosis ICD Code: E87.2 Status: Acute (6) Renal insufficiency ICD Code: N28.9 Status: Acute (7) Elevated troponin ICD Code: R74.8 Status: Acute (8) DM (diabetes mellitus) ICD Code: E11.9 Status: Acute (9) Tobacco abuse ICD Code: Z72.0 Status: Acute (10) NSTEMI (non-ST elevated myocardial infarction) ICD Code: I21.4 Status: Acute (11) Bacteremia due to Gram-positive bacteria ICD Code: R78.81 Status: Acute (12) Encephalopathy, metabolic ICD Code: G93.41 Status: Acute Assessment and Plan Hemoptysis -GI aware and following. Pt will need EUS w ? stent placement -Heparin drip DC'ed by Dr. Krause. -Continue monitor H&H q6hrs. -GI following but patient refused EUS today. Septic shock, resolved -Secondary to MSSA bacteremia. MSSA bacteremia -Hvfowk-y-[id number] infection - s/p removal of Unjviz-l-Glax by GS. Dressing changes per GS. Appreciate assistance. - Catheter tip culture blood culture and wound culture also positive for MSSA - Continue abx per ID, on IV Ancef, po Rifampin x 6 weeks from port removal and (completed course of Levaquin PO on 12/13). LFTs 12/15/16 wnl, continue antibiotics/Ancef until 01/15/17. -Per infectious disease once patient is ready for discharged to notify her so order can be placed. -Acute metabolic encephalopathy- resolved Agitation Encephalopathy most likely secondary to severe sepsis Continue Thiamine, MVI, folic acid. Acute hypoxemic respiratory failure secondary to COPD exacerbation, resolved. - Emergently intubated and placed on mechanical ventilation 12/02/16, extubated successfully 12/03/16 - Continue with oxygen keep sat >92% - continue neb treatment - s/p IV Solu-Medrol , continue to taper down prednisone. Lower extremity edema -Secondary to be in volume overloaded. -Will start Lasix IV. Strict ins and outs. NSTEMI -atrial fibrillation- difficult to control. still on cardizem gtt. meds being adjusted by cards. - s/p PCI to LCx by Dr. Krause on 11/30/16 - Continue ASA/Plavix/metoprolol,cardizem and statin. - Anticoagulation contraindicated secondary to hematemesis -continue to monitor and adjust the regimen as needed. 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 Will need EUS but unable to perform EUS secondary to age fibrillation with RVR. - on Protonix - Oncology following. He will need weekly Erbitux and XRT outpatient. - Status post surgical resection for L parotid SCC. plan for chemo and radiation per oncology. Anemia -Hb now stable at 9, s/p 2 unit PRBC. Per heme/onc recs, transfuse if Hb<8. Monitor H&H. Liver cirrhosis -stable -Follow-up as outpatient. Diabetes - SSI ( medium scale) and Levemir 6 units BID for glycemic control. Monitor BS . -blood sugar levels expected to improve as steroid is being tapered off. -PROPH: - Bilateral lower extremity SCDs. Discharge Planning Patient is unsure if he wants further treatment. Palliative care consulted. Dealt extensively with patient's nurse and patient himself. Makenna Schilling MD Dec 24, 2016 09:28
[2016-12-24] MEDS: PANTOPRAZOLE SODIUM 40 MG VIAL IV PUSH SCH ×2 (09:37→21:00)
[2016-12-24] MEDS: predniSONE 10 MG TAB PO SCH (09:51)
[2016-12-24] MEDS: RIFAMPIN 150 MG CAP PO SCH ×2 (09:52→21:00)
[2016-12-24] MEDS: ASPIRIN EC 81 MG TABEC PO SCH (09:52)
[2016-12-24] MEDS: DIGOXIN 0.25 MG TAB PO SCH (09:52)
[2016-12-24] MEDS: DOCUSATE SODIUM 50 MG/SENNA 8.6 MG TAB PO SCH ×2 (09:52→21:00)
[2016-12-24] MEDS: CLOPIDOGREL 75 MG TAB PO SCH (09:52)
[2016-12-24] MEDS: FOLIC ACID 1 MG TAB PO SCH (09:52)
[2016-12-24] MEDS: POLYETHYLENE GLYCOL 17 GM PKG PO SCH (09:52)
[2016-12-24] MEDS: THIAMINE HCL 100 MG TAB PO SCH (09:53)
[2016-12-24] MEDS: MULTIVITAMIN TAB PO SCH (09:53)
[2016-12-24] MEDS: FUROSEMIDE 20 MG/2 ML VIAL IV PUSH SCH (09:59)
[2016-12-24] MEDS: SODIUM CHLORIDE 0.9% FLUSH 10 ML FLUSH IV FLUSH PRN (09:59)
--- NOTE | 2016-12-24 12:33 | PD.ONC.PN ---
Subjective Subjective Remarks Afebrile overnight. Patient resting in room. Less hemoptysis/hematemesis. Has agreed to EGD/EUS. Objective Data Date Time Temp Pulse Resp B/P Pulse Ox O2 Delivery O2 Flow Rate FiO2 12/24/16 09:10 100 Nasal Cannula 2.00 12/24/16 07:06 97.8 117 16 117/64 94 12/24/16 06:00 104 12/24/16 05:00 127 12/24/16 04:54 98.6 128 16 141/78 98 12/24/16 04:38 98.4 130 18 138/80 97 12/24/16 04:00 114 12/24/16 03:30 98.4 134 18 117/62 99 12/24/16 03:30 99 Nasal Cannula 2.50 12/24/16 03:00 119 12/24/16 02:00 119 12/24/16 01:00 87 12/24/16 00:00 108 12/23/16 23:00 96 Nasal Cannula 2.50 12/23/16 23:00 110 12/23/16 23:00 98.1 123 18 141/72 96 12/23/16 22:00 110 12/23/16 21:00 106 12/23/16 20:00 108 12/23/16 19:00 106 12/23/16 18:00 103 12/23/16 17:20 95 2.00 12/23/16 17:00 113 12/23/16 16:00 132 12/23/16 15:00 119 12/23/16 15:00 98.6 120 20 103/54 100 12/23/16 14:00 110 12/23/16 13:00 109 12/24/16 12/24/16 12/24/16 07:00 15:00 23:00 Intake Total 990 ml Output Total 200 ml Balance 790 ml Result Diagram: 12/24/16 0905 12/24/16 0210 Laboratory Results Laboratory Tests Test 12/24/16 12/24/16 12/24/16 02:10 03:05 09:05 Sodium Level 134 MEQ/L Potassium Level 3.9 MEQ/L Chloride Level 96 MEQ/L Carbon Dioxide Level 31.2 MEQ/L Anion Gap 7 MEQ/L Blood Urea Nitrogen 14 MG/DL Creatinine 0.57 MG/DL Estimat Glomerular Filtration 146 ML/MIN Rate Random Glucose 120 MG/DL Calcium Level 8.0 MG/DL Blood Type O NEGATIVE Antibody Screen NEGATIVE Crossmatch Leukocyte-Reduced Red Blood Cells Blood Bank Comment White Blood Count 5.6 TH/MM3 Red Blood Count 3.15 MIL/MM3 Hemoglobin 9.1 GM/DL Hematocrit 27.7 % Mean Corpuscular Volume 87.8 FL Mean Corpuscular Hemoglobin 28.8 PG Mean Corpuscular Hemoglobin 32.8 % Concent Red Cell Distribution Width 20.4 % Platelet Count 166 TH/MM3 Mean Platelet Volume 7.6 FL Neutrophils (%) (Auto) 73.9 % Lymphocytes (%) (Auto) 10.5 % Monocytes (%) (Auto) 14.3 % Eosinophils (%) (Auto) 1.1 % Basophils (%) (Auto) 0.2 % Neutrophils # (Auto) 4.2 TH/MM3 Lymphocytes # (Auto) 0.6 TH/MM3 Monocytes # (Auto) 0.8 TH/MM3 Eosinophils # (Auto) 0.1 TH/MM3 Basophils # (Auto) 0.0 TH/MM3 CBC Comment DIFF FINAL Differential Comment Administered Medications Medications (Trade) Dose Ordered Sig/Geovanny Route PRN Reason Start Time Stop Time Status Last Admin Dose Admin Sodium Chloride (NS Flush) 2 ml UNSCH PRN IV FLUSH FLUSH AFTER USING IV ACCESS 11/30/16 02:45 12/24/16 09:59 Sodium Chloride (NS Flush) 2 ml BID IV FLUSH 11/30/16 09:00 12/24/16 09:00 Oxycodone HCl (Roxicodone) 5 mg Q4H PRN PO PAIN SCALE 3 TO 5 11/30/16 02:45 12/24/16 05:02 Senna/Docusate Sodium (Rere-Colace) 1 tab BID PO 11/30/16 09:00 12/24/16 09:52 Acetaminophen (Tylenol) 325 mg Q4H PRN PO PAIN SCALE 1 TO 2 11/30/16 13:45 12/13/16 17:13 Clopidogrel Bisulfate (Plavix) 75 mg DAILY PO 12/01/16 09:00 12/24/16 09:52 Ondansetron HCl (Zofran Inj) 4 mg Q4H PRN IV NAUSEA 11/30/16 13:45 12/22/16 22:12 Sodium Chloride (NS Flush) 5 ml Q21D IV FLUSH 11/30/16 18:00 12/21/16 17:19 Heparin Sodium (Porcine) (Heparin Central Flush) 500 units Q21D IV FLUSH 11/30/16 18:00 11/30/16 18:04 Acetaminophen (Tylenol 650 Mg/ 20 ml Liq) 650 mg Q6H PRN PO FEVER 12/01/16 17:30 12/02/16 01:07 Chlorhexidine Gluconate (Peridex 0.12% Liq) 15 ml BID@08,20 MT 12/02/16 08:00 12/23/16 20:00 Polyethylene Glycol (Miralax) 17 gm DAILY PO 12/04/16 09:00 12/24/16 09:52 Thiamine HCl (Vitamin B1) 100 mg DAILY PO 12/05/16 09:00 12/24/16 09:53 Multivitamins (Theragran) 1 tab DAILY PO 12/05/16 09:00 12/24/16 09:53 Folic Acid (Folate) 1 mg DAILY PO 12/05/16 09:00 12/24/16 09:52 Rifampin 300 mg 300 mg Q12HR PO 12/06/16 09:15 01/15/17 23:00 12/24/16 09:52 Cefazolin Sodium/ Dextrose (Ancef 2 Gm Premix) 50 ml @ 100 mls/hr Q8H IV 12/06/16 10:00 01/15/17 23:00 12/24/16 09:38 Lorazepam (Ativan Inj) 1 mg Q4H PRN IV PUSH ANXIETY AND/OR AGITATION 12/09/16 15:15 12/19/16 01:59 Atorvastatin Calcium (Lipitor) 40 mg HS PO 12/12/16 21:00 12/23/16 23:00 Sodium Chloride (NS Flush) See Protocol DAILY IV FLUSH 12/13/16 09:00 12/24/16 09:00 Heparin Sodium (Porcine) (Heparin Central Flush) See Protocol DAILY IV FLUSH 12/13/16 09:00 12/24/16 09:48 Sodium Chloride (NS Flush) UNSCH PRN IV FLUSH SEE PROTOCOL TABLE 12/12/16 17:00 12/19/16 01:59 Insulin Detemir (Levemir Inj) 6 units Q12HR SQ 12/14/16 09:00 12/24/16 09:00 Lorazepam (Ativan) 0.5 mg DAILY PRN PO ANXIETY 12/18/16 15:45 12/19/16 08:29 Diltiazem HCl 90 mg 90 mg Q6H PO 12/18/16 23:00 12/24/16 11:37 Diltiazem HCl/ Sodium Chloride (Cardizem Inj/NS Inj) 125 ml @ 0 mls/hr TITRATE IV 12/19/16 18:15 12/24/16 02:38 Prednisone (Deltasone) 10 mg DAILY PO 12/21/16 09:00 12/24/16 09:51 Oxycodone HCl (Roxicodone) 15 mg Q4H PRN PO PAIN 6-10 12/21/16 11:00 12/24/16 11:37 Digoxin (Lanoxin) 0.25 mg DAILY PO 12/22/16 09:00 12/24/16 09:52 Sucralfate (Carafate Liq) 1 gm ACHS PO 12/22/16 11:00 12/24/16 11:37 Metoprolol Tartrate (Lopressor Inj) 5 mg Q1HR PRN IV PUSH RAPID HEART RATE 12/22/16 09:45 12/23/16 05:31 Pantoprazole Sodium (Protonix Inj) 40 mg Q12H IV PUSH 12/22/16 10:00 12/24/16 09:37 Aspirin (Ecotrin Ec) 81 mg DAILY PO 12/23/16 09:00 12/24/16 09:52 Metoprolol Tartrate (Lopressor) 25 mg Q6HR PO 12/22/16 13:00 12/24/16 12:00 Morphine Sulfate (Morphine Inj) 2 mg Q4H PRN IV PUSH pain >5 12/23/16 00:00 12/24/16 02:42 Furosemide (Lasix Inj) 20 mg DAILY IV PUSH 12/24/16 09:15 12/24/16 09:59 Objective Remarks GENERAL: Chronically ill-appearing male upright on side of bed in nad. On 2L O2 via NC SKIN: Warm and dry. HEAD: Normocephalic. EYES: No injection or drainage. NECK: Supple, trachea midline. CARDIOVASCULAR: tachycardic rate, irregular rhythm RESPIRATORY: anterior ray clear GASTROINTESTINAL: Abdomen soft, non-tender, nondistended. EXTREMITIES: No cyanosis. ble with edema, weeping. NEUROLOGICAL: awake and alert. able to move extremities. Assessment/Plan Problem List: (1) Esophageal adenocarcinoma Status: Acute Plan: --having EUS with possible stent placement on 12/25 --++hemoptysis --we plan to give weekly Erbitux and XRT outpatient. --patient had OP EGD with biopsy, pathology showed adenocarcinoma. --EGD/Colonoscopy, 11/20/16--showed long stricture in the mid esophagus and distal esophagus, multiple biopsies were performed Pathology revealed invasive adenocarcinoma- distal esophagus --XRT simulation done 12/19. --XRT planned to start by next week. (2) SCC (squamous cell carcinoma) Status: Acute Plan: --has a head and neck, lung malignancy which was locally advanced. --received definitive treatment with surgery. Post surgery he had positive margins and some poor risk features and he was about to get concurrent chemotherapy and radiation and adjuvantly to achieve local control of the disease --PET scan to stage his disease prior to treatment showed an esophageal mass (3) Normocytic anemia Status: Acute Plan: --hgb stable but now patient has worsening hemoptysis/hematemesis, likely d/t esophageal mass --transfuse packed red blood cells if his hemoglobin drops below 8. --s/p iron infusion (4) NSTEMI (non-ST elevated myocardial infarction) Status: Acute Plan: --had elevated troponin and ST-segment changes consistent with acute MT. --s/p cardiac cath, stent placement to proximal left circumflex --cardiology following --on plavix and ASA (5) Afib Status: Acute Plan: --cardiology following. (6) Sepsis Status: Resolved Plan: BC, 12.08 no growth BC, 12/07 no growth --BC, 12/05 +, S. Aureus --had removal of port, + S. 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 Also with a new diagnosis of early stage gastric cancer Plan 1. monitor CBC 2. EUS tomorrow 3. XRT/chemotherapy as planned treatment outpatient. \ Attending Statement The exam, history, and the medical decision-making described in the above note were completed with the assistance of the mid-level provider. I reviewed and agree with the findings presented. I attest that I had a [id number] encounter with the patient on the same day, and personally performed and documented my assessment and findings in the medical record. EGD/EUS in AM possible stent placement Problem Qualifiers (1) Afib: Qualified Code: I48.91 - Atrial fibrillation, unspecified type (2) Sepsis: Qualified Code: A41.9 - Sepsis, due to unspecified organism Perla Duran Dec 24, 2016 12:33 Brant Bell MD Dec 24, 2016 23:49
[2016-12-24] MEDS: METOPROLOL TARTRATE 5 MG/5 ML VIAL IV PUSH PRN ×2 (12:34→22:59)
--- NOTE | 2016-12-24 13:14 | HHI.GIFU ---
Subjective Remarks Sitting on edge of bed. No longer bringing up any bloody secretions. No n/v. Having difficulty swallowing, but is able to get down full liquids. His EGD with stent and EUS was cancelled earlier today because he refused, but he is now wanting to proceed. He states that he was concerned about the discomfort during the procedure and after explaining that he would be sedated, he would like to proceed. He already ate today, but he is agreeable for tomorrow. Objective Vitals I&O Vital Signs Date Time Temp Pulse Resp B/P Pulse Ox O2 Delivery O2 Flow Rate FiO2 12/24/16 09:10 100 Nasal Cannula 2.00 12/24/16 07:06 97.8 117 16 117/64 94 12/24/16 06:00 104 12/24/16 05:00 127 12/24/16 04:54 98.6 128 16 141/78 98 12/24/16 04:38 98.4 130 18 138/80 97 12/24/16 04:00 114 12/24/16 03:30 98.4 134 18 117/62 99 12/24/16 03:30 99 Nasal Cannula 2.50 12/24/16 03:00 119 12/24/16 02:00 119 12/24/16 01:00 87 12/24/16 00:00 108 12/23/16 23:00 96 Nasal Cannula 2.50 12/23/16 23:00 110 12/23/16 23:00 98.1 123 18 141/72 96 12/23/16 22:00 110 12/23/16 21:00 106 12/23/16 20:00 108 12/23/16 19:00 106 12/23/16 18:00 103 12/23/16 17:20 95 2.00 12/23/16 17:00 113 12/23/16 16:00 132 12/23/16 15:00 119 12/23/16 15:00 98.6 120 20 103/54 100 12/23/16 14:00 110 I/O 12/23/16 12/23/16 12/23/16 12/24/16 12/24/16 12/24/16 06:59 14:59 22:59 06:59 14:59 22:59 Intake Total 678 ml 1130 ml 990 ml Output Total 1550 ml 450 ml 200 ml Balance -872 ml 680 ml 790 ml Intake Oral 100 ml 960 ml 240 ml IV Total 228 ml 170 ml 250 ml Packed Cells 350 ml 500 ml Output Urine Total 1550 ml 450 ml 200 ml # Bowel Movements 0 Laboratory Laboratory Tests Test 12/24/16 12/24/16 12/24/16 02:10 03:05 09:05 Sodium Level 134 Potassium Level 3.9 Chloride Level 96 Carbon Dioxide Level 31.2 Anion Gap 7 Blood Urea Nitrogen 14 Creatinine 0.57 Estimat Glomerular Filtration 146 Rate Random Glucose 120 Calcium Level 8.0 Blood Type O NEGATIVE Antibody Screen NEGATIVE Crossmatch Leukocyte-Reduced Red Blood Cells Blood Bank Comment White Blood Count 5.6 Red Blood Count 3.15 Hemoglobin 9.1 Hematocrit 27.7 Mean Corpuscular Volume 87.8 Mean Corpuscular Hemoglobin 28.8 Mean Corpuscular Hemoglobin 32.8 Concent Red Cell Distribution Width 20.4 Platelet Count 166 Mean Platelet Volume 7.6 Neutrophils (%) (Auto) 73.9 Lymphocytes (%) (Auto) 10.5 Monocytes (%) (Auto) 14.3 Eosinophils (%) (Auto) 1.1 Basophils (%) (Auto) 0.2 Neutrophils # (Auto) 4.2 Lymphocytes # (Auto) 0.6 Monocytes # (Auto) 0.8 Eosinophils # (Auto) 0.1 Basophils # (Auto) 0.0 CBC Comment DIFF FINAL Differential Comment Date/Time Procedure Status Source Growth 12/24/16 12:42 Stool Occult Blood ([facility]) Received Stool Stool Pending Imaging Last Impressions Barium Swallow X-Ray 12/20/16 0000 Signed Impressions: Service Date/Time: Tuesday, December 20, 2016 13:15 - CONCLUSION: 1. The distal half of the esophagus demonstrates irregular luminal narrowing consistent with the patient's history of esophageal adenocarcinoma. 2. Mild dilatation of the esophagus immediately proximal to the esophageal mass. However, there are no signs of obstruction. 3. Small hiatal hernia. Washington Marroquin MD Abdomen MRI 12/17/16 0000 Signed Impressions: Service Date/Time: Saturday, December 17, 2016 13:59 - CONCLUSION: 1. No acute finding is identified to explain the abdominal pain. 2. Stable thickening of the distal esophagus. There is a single mildly enlarged left gastric lymph node measuring 12 x 10 mm. 3. Moderate sized bilateral pleural effusions, left larger than right, with associated compressive atelectasis. Washington Marroquin MD Chest X-Ray 12/12/16 0000 Signed Impressions: Service Date/Time: Monday, December 12, 2016 17:04 - CONCLUSION: Slight CHF and left basilar opacity may be pleural effusion or consolidation. Mali Law MD Head CT 12/01/16 0000 Signed Impressions: Service Date/Time: Thursday, December 01, 2016 07:59 - CONCLUSION: 1. Questionable area of low attenuation left temporal lobe could be artifact versus less likely infarct. MRI may be warranted based on clinical history. 2. No midline shift or mass effect. 3. No intraparenchymal hemorrhage. Jagjit Tapia MD Brain MRI 12/01/16 0000 Signed Impressions: Service Date/Time: Thursday, December 01, 2016 12:07 - CONCLUSION: Normal examination. Barrett Rodriguez MD Abdomen X-Ray 12/01/16 0000 Signed Impressions: Service Date/Time: Thursday, December 01, 2016 16:48 - CONCLUSION: No evidence of obstruction. Feeding tube tip in the distal stomach. Barrett Rodriguez MD Abdomen/Pelvis CT 11/29/16 2356 Signed Impressions: Service Date/Time: Wednesday, November 30, 2016 01:35 - CONCLUSION: 1. Markedly abnormal appearance of the distal esophagus consistent with the history of esophageal carcinoma. 2. Atherosclerotic calcifications of the aorta and iliac vessels. 3. Cirrhotic appearance to the liver with a mildly nodular contour present. Erik Simon MD CT Angiography 11/29/16 2348 Signed Impressions: Service Date/Time: Wednesday, November 30, 2016 01:35 - CONCLUSION: 1. No evidence for pulmonary embolism or pneumonia. 2. Abnormal appearance of the esophagus with and soft tissue consistent with the history of carcinoma. Erik Simon MD Physical Exam HEENT: Normocephalic; atraumatic; no jaundice. CHEST: CTA, diminished bases CARDIAC: Irregular rhythm. Tachycardic. +murmur ABDOMEN: Soft, obese, nondistended, nontender; no hepatosplenomegaly; bowel sounds x 4 EXTREMITIES: pitting edema BUE, BLE SKIN: Normal; no rash; no jaundice. HATCHERY HELPER: lethargic Assessment and Plan Plan ASSESSMENT: - Odynophagia/Dysphagia. Worsening since Barium Swallow on 12/[address] following, pureed diet. Barium Swallow X-Ray 12/20/16--1. The distal half of the esophagus demonstrates irregular luminal narrowing consistent with the patient's history of esophageal adenocarcinoma. 2. Mild dilatation of the esophagus immediately proximal to the esophageal mass. However, there are no signs of obstruction. 3. Small hiatal hernia. Also bringing up small to moderate amount of bloody frothy secretions. The plan was for EGD with esophageal stent at time of EUS, but patient refused procedure earlier today. However, he was under the impression that he would be awake and he would now like to proceed as long as he is sedated for the procedure. He already ate today, but we will reschedule for tomorrow. - Upper GIB. He was bringing up bloody frothy secretions- small to moderate amount, but has not had any further episodes. HH 9.1/27.7. PPI - Esophageal cancer. PET Scan (10/28/16)----> negative examination of the head and neck, findings characteristic of esophageal neoplasm. S/P EGD/Colonoscopy (11/20/16)----> There was a long stricture i the mid esophagus and distal esophagus, multiple biopsies were performed, the mucosa of the stomach appeared normal, duodenal mucosa showed no abnormalities in the entire duodenum, retroflexed views revealed a small hiatal hernia; nine sessile polyps ranging from 4-12 mm in size were found at the cecum, in the ascending colon, descending colon, sigmoid colon, and rectum; polypectomy was performed using snare cautery, moderate diverticulosis was noted in the left colon, retroflexed views revealed internal grade I hemorrhoids, a digital rectal exam was performed and revealed no abnormalities of the anus. Pathology revealed invasive adenocarcinoma- distal esophagus, descending colon polyp and rectosigmoid polyp both benign hyperplastic colonic polyp, no adenomatous change or malignancy is seen. S/P XRT Simulation. Plan is for erbitux, radiation as outpatient. EUS in am - Constipation. (+) BM. Miralax - Abnormal imaging of the liver on CT scan, consistent with cirrhosis. Abdomen/ Pelvis CT (11/29/16)----> 1. Markedly abnormal appearance of the distal esophagus consistent with the history of esophageal carcinoma. 2. Atherosclerotic calcifications of the aorta and iliac vessels. 3. Cirrhotic appearance to the liver with a mildly nodular contour present. Abdomen MRI 12/17/16--1. No acute finding is identified to explain the abdominal pain. 2. Stable thickening of the distal esophagus. There is a single mildly enlarged left gastric lymph node measuring 12 x 10 mm. 3. Moderate sized bilateral pleural effusions, left larger than right, with associated compressive atelectasis. Unclear if he has hx of cirrhosis. There is mention of hx of HCV in EMR, but patient has had undetectable viral load as far back as 2001. Pt does report he has a history of HCV and was successfully treated with Interferon/ribavirin in the past. Iron saturation 4.1%, Ferritin 124, Hepatitis C antibodies (+), viral load undetectable, TERRIE negative, ASMA < 20.0, AMA neg, Ceruloplasmin 40 and alpha 1 antitrypsin 298. Labs and imaging consistent with cirrhosis. Pt does not currently drink, but states that he was a heavy drinker in the past. LFT stable. - Afib with RVR. Rate controlled. Cardiology following. - Sepsis/Bacteremia/UTI. Urine and Bcx with Staphylococcus aureus. S/P removal of infusaport by GS (12/02). Rpt bcx no growth. Ancef----> 01/15. - AMS, Acute metabolic encephalopathy. Head CT (12/01/16)-----> 1. Questionable area of low attenuation left temporal lobe could be artifact versus less likely infarct. MRI may be warranted based on clinical history. 2. No midline shift or mass effect. 3. No intraparenchymal hemorrhage. Brain MRI (12/01/16 )----> Normal examination. Lethargic, but awakens and follows commands. Confused. - Resp. Failure. Chest X-Ray (12/05/16)----> 1. Cardiomegaly and findings of vascular congestion without overt failure. There has been no significant change when compared to the prior exam. S/P Extubation on 12/03. cedric Carrillo, - NSTEMI, CAD. S/P left heart catheterization (11/30/16) with Dr. Murillo and this revealed RCA 10% lesion mid segment, mild calcifications left main, LAD with calcification from it's proximal segment to its midsegment however, with no significant obstructive lesions, The LAD is giving off to a diagonal which has a 70% lesion in its ostial segment, left circumflex artery with a proximal clot thrombus, S/P percutaneous coronary intervention/bare metal stent to proximal left circumflex. ASA and Plavix, as well as aggressive optimization of coronary artery disease. 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 S/P mohs surgery by a car cooper in September of 2015 and shortly after this, developed a mass near the surgical area. S/P at [facility] with Dr. Valdovinos in June of 2016----> underwent extensive head and neck surgery involving a parotidectomy and radical neck dissection in September of 2016. Because of high risk features of local recurrence with perineural invasion and positive margins, it was recommended that he have concurrent chemoradiation therapy. He was evaluated by Dr. Cross for radiation and seen by Dr. Bell for oncology. PET Scan ()---> negative examination of the head and neck, findings characteristic of esophageal neoplasm. Direct visualization is recommended. - Hx HTN, Hyperlipidemia, DM. per attending. PLAN: - Plan for EGD with esophageal stent and endoscopic ultrasound in am- pt now agreeable - Obtain consents - Diet per ST - Monitor HH - Transfuse as necessary - Cont. PPI - Cont. Carafate - Cont. Miralax - Monitor labs - Supportive care - Patient seen and examined by Dr. Hanson and myself and this note is written on his behalf Nga Ramos Dec 24, 2016 13:14
[2016-12-24] MEDS: ATORVASTATIN 40 MG TAB PO SCH (21:00)
[2016-12-24] MEDS ORDERED: CHLORHEXIDINE GLUCONATE 2 % 1 PACK (2 CLOTHS) TOPICAL PRN (22:00)
[2016-12-24] MEDS ORDERED: METOPROLOL TARTRATE 25 MG TAB PO PRN (22:00)
[2016-12-24] MEDS ORDERED: SODIUM CHLORID 0.9% 500 ML IV PRN (22:00)
[2016-12-24] MEDS ORDERED: INSULIN HUMAN REGULAR 1,000 UNITS/10 ML VIAL SQ PRN (22:00)
[2016-12-24] MEDS ORDERED: POVIDONE IODINE 5% (ANTISEPSIS KIT) 4 APPLICATIONS EACH NARE PRN (22:00)
[2016-12-24] MEDS ORDERED: LACTATED RINGER'S 1000 ML IV PRN (22:00)
[2016-12-24] MEDS: ONDANSETRON HCL 4 MG/2 ML VIAL IV PRN (22:41)
[2016-12-25] VITALS (32 sets, daily range): BP systolic 100–131; BP diastolic 47–79; PULSE 93–146; RESP 12–22; TEMP 98–99.3; O2SAT 93–100
[2016-12-25] MEDS: MORPHINE SULFATE 4 MG/ML INJ IV PUSH PRN ×2 (03:04→12:27)
[2016-12-25] MEDS: ceFAZolin 2 GM PREMIX 50 ML IV SCH ×3 (03:04→18:00)
[2016-12-25] MEDS: METOPROLOL TARTRATE 25 MG TAB PO SCH ×4 (05:18→23:28)
[2016-12-25] MEDS: DILTIAZEM HCL 90 MG TAB PO SCH ×2 (05:18→12:14)
[2016-12-25 05:20] LABS: HEMATOCRIT 27.6 % (39.0-51.0); MEAN CELL VOLUME 88.2 FL (80.0-100.0); MEAN CORPUSCULAR HEMOGLOBIN 28.6 PG (27.0-34.0); MEAN CORPUSCULAR HGB CONC 32.5 % (32.0-36.0); PLATELET COUNT 166 TH/MM3 (150-450); RED BLOOD COUNT 3.13 MIL/MM3 (4.50-5.90); RED CELL DISTRIBUTION WIDTH 20.8 % (11.6-17.2); REVIEW FLAG FINAL; WHITE BLOOD COUNT 6.2 TH/MM3 (4.0-11.0)
[2016-12-25] MEDS: INSULIN ASPART SUPPLEMENTAL SCALE SQ SCH ×3 (05:20→16:00)
[2016-12-25 05:50] LABS: BICARBONATE 30.4 MEQ/L (21.0-32.0); POTASSIUM 3.9 MEQ/L (3.5-5.1)
[2016-12-25] MEDS: MULTIVITAMIN TAB PO SCH (08:06)
[2016-12-25] MEDS: CLOPIDOGREL 75 MG TAB PO SCH (08:06)
[2016-12-25] MEDS: DIGOXIN 0.25 MG TAB PO SCH (08:06)
[2016-12-25] MEDS: DOCUSATE SODIUM 50 MG/SENNA 8.6 MG TAB PO SCH ×2 (08:06→21:00)
[2016-12-25] MEDS: ASPIRIN EC 81 MG TABEC PO SCH (08:06)
[2016-12-25] MEDS: predniSONE 10 MG TAB PO SCH (08:07)
[2016-12-25] MEDS: FOLIC ACID 1 MG TAB PO SCH (08:07)
[2016-12-25] MEDS: THIAMINE HCL 100 MG TAB PO SCH (08:07)
[2016-12-25] MEDS: INSULIN DETEMIR 100 UNITS/ML VIAL SQ SCH ×2 (08:07→21:00)
[2016-12-25] MEDS: SUCRALFATE 1 GM/10 ML CUP PO SCH ×4 (08:07→21:00)
[2016-12-25] MEDS: FUROSEMIDE 20 MG/2 ML VIAL IV PUSH SCH (08:08)
[2016-12-25] MEDS: SODIUM CHLORIDE 0.9% FLUSH 10 ML FLUSH IV FLUSH SCH ×3 (08:08→21:00)
[2016-12-25] MEDS: RIFAMPIN 150 MG CAP PO SCH ×2 (08:09→21:00)
[2016-12-25] MEDS: POLYETHYLENE GLYCOL 17 GM PKG PO SCH (08:09)
[2016-12-25] MEDS: DILTIAZEM 125 MG/NS 100 ML IV SCH ×4 (09:47→17:30)
--- NOTE | 2016-12-25 11:18 | PD.CONS ---
Consult Service Palliative Care Consult Requested By Primary Care Physician Landon Abad MD Reason for Consultation a. To assist with evaluation and management of symptoms including: Pain, dysphasia, presyncope, edema. b. To assist medical decision maker(s) with: better understanding of current medical conditions; weighing benefits/burdens of medical treatment options; making medical treatment decisions. (Betty Galindo) HPI History of Present Illness This is an unfortunate 61-year-old male admitted 11/30/16 with a history of parotid cancer, esophageal cancer with a diagnosed mass at the lower esophagus/ upper stomach, GE junction, 2.7 x 4.5 cm in the transverse dimension in the posterior esophagus with marked luminal narrowing is extending into the gastroesophageal junction, demonstrated on CT of the abdomen and pelvis on admission. That study further noted liver cirrhosis and mild splenomegaly with a splenic size of 14 cm. He was admitted with significant abdominal pain, dysphasia, dehydration, hypotension, presyncope and underwent fluid resuscitation. He had previously undergone left parotidectomy and radical neck dissection at [facility]. The tumor involved the left ear and final pathology results confirmed tumor presence at the deep margin with perineural invasion and subcutaneous tissue invasion. Tumor was staged as a T3 and due to the proximity and perineural involvement patient underwent, concurrent chemotherapy and radiation treatment. Prior to this procedure he had undergone PET scan showing concern for esophageal mass, which is currently under evaluation by GI and pending an EGD with possible stent placement today. On 11/20/16 he underwent evaluation with EGD/colonoscopy showing a long stricture in the mid esophagus and distal esophagus. Multiple biopsies were performed. No abnormality seen in the stomach mucosa, duodenal mucosa, a small hiatal hernia was noted as well as 9 sessile polyps ranging from 4-12 mm in size at the cecum, ascending colon, descending colon, sigmoid colon and rectum. Polypectomy was performed at that evaluation. Moderate diverticulosis was noted in the left colon as well as grade 1 hemorrhoids. 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 Descending colon polyp and rectosigmoid polyp were both benign. Hyperplastic colonic polyp showed no adenomatous changes or malignancy. CT of the abdomen showed a cirrhotic liver. Laboratory studies showed hepatitis C antibodies with an undetectable viral load. ED course: Laboratory on presentation: WBC 11.6, hemoglobin 9.7, hematocrit 28.7, platelets 106, sodium 134, potassium 2.7, BUN 20, creatinine 1.64, estimated GFR 43, AST 37, ALT 30, alkaline phosphatase 67, troponin 3.12. Urinalysis required culture.Reactive hepatitis C antibody with no detectable viral load. Current lab values: WBC 6.2, hemoglobin 9.0, hematocrit 27.6, platelets 166, INR 1.2, PT 13.8, sodium 132, potassium 3.9, BUN 14, creatinine 0.63. Shortly after admission he developed altered mental status persistent fever and was found to have MSSA bacteremia and sepsis. He was evaluated by materials manager service and transferred to intensive care for stabilization. On 12/09 he was returned to medical management after stabilization by the materials manager group. His course was complicated when he developed atrial fibrillation with fast ventricular response on 12/21. This has been treated with oral and IV medications , unsuccessfully. The patient's heart rate remains elevated. This is likely due to his multiple disease processes per electrophysiology consultation. He is pending EGD today for further evaluation. . 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 . (Betty Galindo) Review of Systems Constitutional: COMPLAINS OF: Weight gain Endocrine: DENIES: Heat/cold intolerance, Polydipsia, Polyuria, Polyphagia Eyes: DENIES: Blurred vision, Diplopia, Eye inflammation, Eye pain, Vision loss , Photosensitivity, Double Vision, Blind spots Ears, nose, mouth, throat: DENIES: Tinnitus, Hearing loss, Vertigo, Nasal discharge, Oral lesions, Throat pain, Hoarseness, Ear Pain, Running Nose, Epistaxis, Sinus Pain, Toothache, Odynophagia Respiratory: COMPLAINS OF: Shortness of breath Cardiovascular: COMPLAINS OF: Palpitations, Dyspnea on Exertion, Orthopnea Gastrointestinal: COMPLAINS OF: Abdominal pain, Difficulty Swallowing, Anorexia Genitourinary: DENIES: Sexual dysfunction, Urinary frequency, Urinary incontinence, Urgency, Hematuria, Dysuria, Nocturia, Penile Discharge, Testicular Pain, Testicular Swelling, Hesitancy, Dribbling, Decreased stream Musculoskeletal: DENIES: Joint pain, Muscle aches, Stiffness, Joint Swelling, Back pain, Neck pain, Decreased range of motion Integumentary: DENIES: Abnormal pigmentation, Nail changes, Pruritus, Rash, Nodules, Tumors, Excessive dryness, Non-healing sores Hematologic/Lymphatics: DENIES: Bruising, Lymphadenopathy, Prolonged bleed w/ proced, History of transfusions Immunologic/Allergic: DENIES: Eczema, Urticaria Neurologic: COMPLAINS OF: Localized weakness Psychiatric: DENIES: Anxiety, Confusion, Mood changes, Depression, Hallucinations, Agitation, Suicidal Ideation, Homicidal Ideation, Delusions, Anhedonia (Betty Galindo) Past Family Social History Coded Allergies: penicillin G (Unverified Allergy, Mild, Hives, 12/30/16) Past Medical History HTN Parotid gland and neck cancer, squamous cell Skin cancer Hypertension Hyperlipidemia CAD DM Esophageal mass Colon polyps-benign Per emr, hx HCV, undetectable viral load as far back as 2001. Acute AL on admission Diverticulosis . Past Surgical History Appendectomy Liver Biopsy Port Placement EGD/Colonoscopy MOHS procedure Left and right heart catheterization with BMS placement to the circumflex . Reported Medications Reported Meds & Active Scripts Active Oxycodone (Oxycodone HCl) 5 Mg Tab 5 Mg PO Q4H PRN [[id number]] 1 Tab PO DAILY Reported B-12 (Cyanocobalamin) 1,000 Mcg Subl 1,000 Mcg PO DAILY Vitamin D3 (Cholecalciferol) 1,000 Unit Tab 1,000 Units PO DAILY Tramadol (Tramadol HCl) 50 Mg Tab 50 Mg PO Q8H PRN Omeprazole 20 Mg Tab 20 Mg PO DAILY Levothyroxine (Levothyroxine Sodium) 50 Mcg Tab 50 Mcg PO DAILY Atorvastatin (Atorvastatin Calcium) 40 Mg Tab 40 Mg PO HS Amlodipine (Amlodipine Besylate) 10 Mg Tab 10 Mg PO DAILY Losartan (Losartan Potassium) 100 Mg Tab 100 Mg PO DAILY Metformin (Metformin HCl) 1,000 Mg Tab 1,000 Mg PO BIDPC With meals Glipizide 10 Mg Tab 20 Mg PO BIDAC Take 30 minutes before a meal Lantus Inj (Insulin Glargine) 1,000 Unit/10 Ml Vial 40 Units SQ HS [Eye Vitamin] 1 Tab PO DAILY . Current Medications Medications (Trade) Dose Ordered Sig/Geovanny Route Start Time Stop Time Status Last Admin (NS Flush) 2 ml UNSCH PRN IV FLUSH 11/30/16 02:45 12/24/16 09:59 (NS Flush) 2 ml BID IV FLUSH 11/30/16 09:00 12/25/16 08:08 (Roxicodone) 5 mg Q4H PRN PO 11/30/16 02:45 12/25/16 05:24 (Rere-Colace) 1 tab BID PO 11/30/16 09:00 12/25/16 08:06 (Milk Of Magnesia Liq) 30 ml Q12H PRN PO 11/30/16 02:45 (Senokot) 17.2 mg Q12H PRN PO 11/30/16 02:45 (Dulcolax Supp) 10 mg DAILY PRN RECTAL 11/30/16 02:45 (Lactulose Liq) 30 ml DAILY PRN PO 11/30/16 02:45 Miscellaneous Information Patient in critical care unit? Ass... [id number] .XX 11/30/16 05:15 (Tylenol) 325 mg Q4H PRN PO 11/30/16 13:45 12/13/16 17:13 (Plavix) 75 mg DAILY PO 12/01/16 09:00 12/25/16 08:06 (Atropine Inj) 0.5 mg UNSCH PRN IV 11/30/16 13:45 (Zofran Inj) 4 mg Q4H PRN IV 11/30/16 13:45 12/24/16 22:41 (NS Flush) 5 ml Q21D IV FLUSH 11/30/16 18:00 12/21/16 17:19 (Heparin Central Flush) 500 units Q21D IV FLUSH 11/30/16 18:00 11/30/16 18:04 (NS Flush) 5 ml UNSCH PRN IV FLUSH 11/30/16 18:00 (Heparin Central Flush) 250 units UNSCH PRN IV FLUSH 11/30/16 18:00 (Romazicon Inj) 0.2 mg Q1M PRN IV PUSH 12/01/16 13:00 (Tylenol 650 Mg/ 20 ml Liq) 650 mg Q6H PRN PO 12/01/16 17:30 12/02/16 01:07 (Peridex 0.12% Liq) 15 ml BID@08,20 MT 12/02/16 08:00 12/24/16 20:00 (Brethine Inj) 1 mg UNSCH PRN SQ 12/02/16 15:15 (D50w (Vial) Inj) 50 ml UNSCH PRN IV 12/02/16 22:30 (Glucagon Inj) 1 mg UNSCH PRN OTHER 12/02/16 22:30 (Miralax) 17 gm DAILY PO 12/04/16 09:00 12/24/16 09:52 (Vitamin B1) 100 mg DAILY PO 12/05/16 09:00 12/25/16 08:07 (Theragran) 1 tab DAILY PO 12/05/16 09:00 12/25/16 08:06 (Folate) 1 mg DAILY PO 12/05/16 09:00 12/25/16 08:07 Rifampin 300 mg 300 mg Q12HR PO 12/06/16 09:15 01/15/17 23:00 12/24/16 21:00 (Ancef 2 Gm Premix) 50 ml @ 100 mls/hr Q8H IV 12/06/16 10:00 01/15/17 23:00 12/25/16 03:04 (Ativan Inj) 1 mg Q4H PRN IV PUSH 12/09/16 15:15 12/19/16 01:59 (Haldol Inj) 2 mg Q8H PRN IM 12/10/16 17:00 (Lipitor) 40 mg HS PO 12/12/16 21:00 12/24/16 21:00 (NS Flush) See Protocol DAILY IV FLUSH 12/13/16 09:00 12/25/16 08:08 (NS Flush) See Protocol UNSCH PRN IV FLUSH 12/12/16 17:00 (Heparin Central Flush) See Protocol DAILY IV FLUSH 12/13/16 09:00 12/25/16 08:08 (Heparin Central Flush) See Protocol UNSCH PRN IV FLUSH 12/12/16 17:00 (NS Flush) UNSCH PRN IV FLUSH 12/12/16 17:00 12/19/16 01:59 (Levemir Inj) 6 units Q12HR SQ 12/14/16 09:00 12/25/16 08:07 (Nitrostat Sl) 0.4 mg Q5M PRN SL 12/16/16 00:15 (Ativan) 0.5 mg DAILY PRN PO 12/18/16 15:45 12/19/16 08:29 Diltiazem HCl 90 mg 90 mg Q6H PO 12/18/16 23:00 12/25/16 05:18 (Cardizem Inj/NS Inj) 125 ml @ 0 mls/hr TITRATE IV 12/19/16 18:15 12/25/16 09:47 (Deltasone) 10 mg DAILY PO 12/21/16 09:00 12/25/16 08:07 (Roxicodone) 15 mg Q4H PRN PO 12/21/16 11:00 12/24/16 23:56 (Lanoxin) 0.25 mg DAILY PO 12/22/16 09:00 12/25/16 08:06 (Carafate Liq) 1 gm ACHS PO 12/22/16 11:00 12/25/16 08:07 (Lopressor Inj) 5 mg Q1HR PRN IV PUSH 12/22/16 09:45 12/24/16 22:59 (Protonix Inj) 40 mg Q12H IV PUSH 12/22/16 10:00 12/24/16 21:00 (Ecotrin Ec) 81 mg DAILY PO 12/23/16 09:00 12/25/16 08:06 (Lopressor) 25 mg Q6HR PO 12/22/16 13:00 12/25/16 05:18 (Morphine Inj) 2 mg Q4H PRN IV PUSH 12/23/16 00:00 12/25/16 03:04 Furosemide 20 mg 20 mg DAILY IV PUSH 12/24/16 09:15 12/25/16 08:08 Lactated Ringer's 1,000 ml @ 30 mls/hr Q24H PRN IV 12/24/16 22:00 12/27/16 21:59 (NS 500 ml Inj) 500 ml @ 30 mls/hr [id number] PRN IV 12/24/16 22:00 12/27/16 21:59 . Family History His mother, Orly Sky (Amauri) is alive and lives in [place], [place]. She is in her late 70s. He has no information about her current state of health. His father of brain cancer in his 60s. . Substance Use Tobacco: Has smoked up to 2 packs per day. He continues to smoke but at a reduced rate. He started smoking when he was approximately 11 years old. Alcohol: He states he had a heavy alcohol use to include beer and liquor. He had decreased use up to the few weeks prior to admission. Prescription med abuse: No prescription med abuse. Illicits: He states that he does use marijuana, cocaine and occasionally hashish. He states that he has used that recently before admission . Psychosocial History This is a 61-year-old male that was born in [place], [place] and moved to [place] when he was 15. He never attended high school after he moved to [place] nor obtained his GED. 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 He was never in the . . Spiritual/Cultural Factors He has no spiritual affiliations. . (Betty Galindo) Living Will: Never completed Health Care Surrogate: Copy in medical record Durable Power of Biometrics Technician: Never completed (Betty Galindo) Physical Exam Vital Signs Date Time Temp Pulse Resp B/P Pulse Ox O2 Delivery O2 Flow Rate FiO2 12/25/16 09:29 98.8 133 18 120/70 96 12/25/16 09:29 96 Room Air 12/25/16 07:01 129 12/25/16 06:00 97 12/25/16 05:00 130 12/25/16 04:00 116 12/25/16 03:00 144 12/25/16 03:00 98.7 128 18 126/77 95 12/25/16 03:00 95 Room Air 12/25/16 02:00 115 12/25/16 01:00 105 12/25/16 00:00 110 12/24/16 23:00 108 12/24/16 23:00 98.5 140 18 131/77 95 12/24/16 23:00 95 Room Air 12/24/16 22:00 126 12/24/16 21:00 106 12/24/16 20:00 78 12/24/16 19:47 93 21 12/24/16 19:30 94 Room Air 12/24/16 19:30 97.5 84 18 151/72 94 12/24/16 19:00 109 12/24/16 18:29 95 Room Air 12/24/16 18:00 108 12/24/16 17:00 110 12/24/16 16:00 98 12/24/16 15:45 99.0 109 20 106/51 95 12/24/16 15:00 94 12/24/16 14:00 98 12/24/16 13:00 110 12/24/16 12:00 98 12/24/16 11:00 98.3 146 18 150/76 97 12/24/16 11:00 95 Room Air 12/24/16 11:00 130 . 12/24/16 12/25/16 19:00 07:00 Intake Total 955 ml 745 ml Output Total 1275 ml 425 ml Balance -320 ml 320 ml Intake Oral 955 ml 240 ml Oral Supplement 237 ml IV Total 268 ml Output Urine Total 1275 ml 225 ml Emesis 200 ml # Voids 1 # Bowel Movements 1 1 . Exam CONSTITUTIONAL/GENERAL: This is an adequately nourished patient, in no apparent distress. TUBES/LINES/DRAINS: 4 Pashto left inner proximal upper arm PICC line, PIV 20- gauge left upper arm. SKIN: No jaundice, rashes, or lesions. Bilateral rey abrasions. Skin temperature appropriate. Not diaphoretic. HEAD: Atraumatic. Normocephalic. EYES: Pupils equal and round and reactive. Extraocular motions intact. No scleral icterus. No injection or drainage. Fundi not examined. ENT: Hearing grossly normal. Nose without bleeding or purulent drainage. Left cheek with postsurgical changes, healed. NECK: Trachea midline. Supple, nontender. No palpable thyroid enlargement or nodularity. CARDIOVASCULAR: Tachycardic rate, regular rhythm, 2/6 systolic ejection murmur heard best at the right sternal border RESPIRATORY/CHEST: Symmetric, unlabored respirations. Clear, diminished to auscultation. Breath sounds equal bilaterally. No wheezes, rales, or rhonchi. GASTROINTESTINAL: Abdomen soft, non-tender, nondistended. No hepato-splenomegaly , or palpable masses. No guarding. Bowel sounds present. GENITOURINARY: Without palpable bladder distension. Voiding. MUSCULOSKELETAL: Extremities with 3+ weeping, pitting edema. Moves all extremities independently with purpose. LYMPHATICS: No palpable cervical or supraclavicular adenopathy. NEUROLOGICAL: Awake and alert. Motor and sensory grossly within normal limits. Follows commands. Moves all extremities. PSYCHIATRIC: Mild depression. no apparent hallucinations or other psychotic thought process. . (Betty Galindo) Diagnostic Tests Laboratory Laboratory Tests Test 12/22/16 12/22/16 12/22/16 12/22/16 13:55 18:15 22:20 22:35 Hemoglobin 8.9 GM/DL 8.4 GM/DL 8.2 GM/DL (13.0-17.0) (13.0-17.0) (13.0-17.0) Hematocrit 27.3 % 25.4 % 25.1 % (39.0-51.0) (39.0-51.0) (39.0-51.0) Activated Partial 45.2 SEC Thromboplast Time (24.3-30.1) Blood Type O NEGATIVE Crossmatch Leukocyte-Reduced Red Blood Cells Blood Bank Comment Test 12/23/16 12/23/16 12/24/16 12/24/16 06:20 06:45 02:10 03:05 Hemoglobin 8.7 GM/DL (13.0-17.0) Hematocrit 26.6 % (39.0-51.0) Digoxin Level 0.8 NG/ML (0.8-2.0) Sodium Level 134 MEQ/L (136-145) Potassium Level 3.9 MEQ/L (3.5-5.1) Chloride Level 96 MEQ/L (98-107) Carbon Dioxide Level 31.2 MEQ/L (21.0-32.0) Anion Gap 7 MEQ/L (5-15) Blood Urea Nitrogen 14 MG/DL (7-18) Creatinine 0.57 MG/DL (0.60-1.30) Estimat Glomerular Filtration 146 ML/MIN Rate (>89) Random Glucose 120 MG/DL (74-106) Calcium Level 8.0 MG/DL (8.5-10.1) Blood Type O NEGATIVE Antibody Screen NEGATIVE Crossmatch Leukocyte-Reduced Red Blood Cells Blood Bank Comment Test 12/24/16 12/25/16 09:05 05:05 White Blood Count 5.6 TH/MM3 6.2 TH/MM3 (4.0-11.0) (4.0-11.0) Red Blood Count 3.15 MIL/MM3 3.13 MIL/MM3 (4.50-5.90) (4.50-5.90) Hemoglobin 9.1 GM/DL 9.0 GM/DL (13.0-17.0) (13.0-17.0) Hematocrit 27.7 % 27.6 % (39.0-51.0) (39.0-51.0) Mean Corpuscular Volume 87.8 FL 88.2 FL (80.0-100.0) (80.0-100.0) Mean Corpuscular Hemoglobin 28.8 PG 28.6 PG (27.0-34.0) (27.0-34.0) Mean Corpuscular Hemoglobin 32.8 % 32.5 % Concent (32.0-36.0) (32.0-36.0) Red Cell Distribution Width 20.4 % 20.8 % (11.6-17.2) (11.6-17.2) Platelet Count 166 TH/MM3 166 TH/MM3 (150-450) (150-450) Mean Platelet Volume 7.6 FL 7.3 FL (7.0-11.0) (7.0-11.0) Neutrophils (%) (Auto) 73.9 % (16.0-70.0) Lymphocytes (%) (Auto) 10.5 % (9.0-44.0) Monocytes (%) (Auto) 14.3 % (0.0-8.0) Eosinophils (%) (Auto) 1.1 % (0.0-4.0) Basophils (%) (Auto) 0.2 % (0.0-2.0) Neutrophils # (Auto) 4.2 TH/MM3 (1.8-7.7) Lymphocytes # (Auto) 0.6 TH/MM3 (1.0-4.8) Monocytes # (Auto) 0.8 TH/MM3 (0-0.9) Eosinophils # (Auto) 0.1 TH/MM3 (0-0.4) Basophils # (Auto) 0.0 TH/MM3 (0-0.2) CBC Comment DIFF FINAL Differential Comment Sodium Level 132 MEQ/L (136-145) Potassium Level 3.9 MEQ/L (3.5-5.1) Chloride Level 94 MEQ/L (98-107) Carbon Dioxide Level 30.4 MEQ/L (21.0-32.0) Anion Gap 8 MEQ/L (5-15) Blood Urea Nitrogen 14 MG/DL (7-18) Creatinine 0.63 MG/DL (0.60-1.30) Estimat Glomerular Filtration 130 ML/MIN Rate (>89) Random Glucose 141 MG/DL (74-106) Calcium Level 8.0 MG/DL (8.5-10.1) . (Betty Galindo) Result Diagram: 12/25/16 0505 12/25/16 0505 Microbiology Microbiology Date/Time Procedure Status Source Growth 12/24/16 12:42 Stool Occult Blood (DAINA) - Final Complete Stool Stool HEMOCCULT NEGATIVE Imaging Last Impressions Barium Swallow X-Ray 12/20/16 0000 Signed Impressions: Service Date/Time: Tuesday, December 20, 2016 13:15 - CONCLUSION: 1. The distal half of the esophagus demonstrates irregular luminal narrowing consistent with the patient's history of esophageal adenocarcinoma. 2. Mild dilatation of the esophagus immediately proximal to the esophageal mass. However, there are no signs of obstruction. 3. Small hiatal hernia. Washington Marroquin MD Abdomen MRI 12/17/16 0000 Signed Impressions: Service Date/Time: Saturday, December 17, 2016 13:59 - CONCLUSION: 1. No acute finding is identified to explain the abdominal pain. 2. Stable thickening of the distal esophagus. There is a single mildly enlarged left gastric lymph node measuring 12 x 10 mm. 3. Moderate sized bilateral pleural effusions, left larger than right, with associated compressive atelectasis. Washington Marroquin MD Chest X-Ray 12/12/16 0000 Signed Impressions: Service Date/Time: Monday, December 12, 2016 17:04 - CONCLUSION: Slight CHF and left basilar opacity may be pleural effusion or consolidation. Mali Law MD Head CT 12/01/16 0000 Signed Impressions: Service Date/Time: Thursday, December 01, 2016 07:59 - CONCLUSION: 1. Questionable area of low attenuation left temporal lobe could be artifact versus less likely infarct. MRI may be warranted based on clinical history. 2. No midline shift or mass effect. 3. No intraparenchymal hemorrhage. Jagjit Tapia MD Brain MRI 12/01/16 0000 Signed Impressions: Service Date/Time: Thursday, December 01, 2016 12:07 - CONCLUSION: Normal examination. Barrett Rodriguez MD Abdomen X-Ray 12/01/16 0000 Signed Impressions: Service Date/Time: Thursday, December 01, 2016 16:48 - CONCLUSION: No evidence of obstruction. Feeding tube tip in the distal stomach. Barrett Rodriguez MD Abdomen/Pelvis CT 11/29/16 2356 Signed Impressions: Service Date/Time: Wednesday, November 30, 2016 01:35 - CONCLUSION: 1. Markedly abnormal appearance of the distal esophagus consistent with the history of esophageal carcinoma. 2. Atherosclerotic calcifications of the aorta and iliac vessels. 3. Cirrhotic appearance to the liver with a mildly nodular contour present. Erik Simon MD CT Angiography 11/29/16 2348 Signed Impressions: Service Date/Time: Wednesday, November 30, 2016 01:35 - CONCLUSION: 1. No evidence for pulmonary embolism or pneumonia. 2. Abnormal appearance of the esophagus with and soft tissue consistent with the history of carcinoma. Erik Simon MD Procedures 11/30/16 - he underwent left and right heart catheterization with the following findings: RCA-dominant, 10% lesion mid. PDA-patent with TALI III flow. LM-no significant obstructive lesions. LAD-transapical, no significant obstructive lesions. Diagonal-70% lesion ostial, small vessel. Left circumflex-proximal clot thrombus, TALI II flow with 2 OM branches, both patent. Procedure-PCI/BMS to proximal left circumflex in setting of NSTEMI. No left ventriculogram done due to concern for renal function. EF by echocardiogram 12/01/16 was 50-55%, mild concentric left ventricular hypertrophy, normal right ventricular size and function, no significant valvular disease, pulmonary hypertension or effusion noted. This was reexamined 87 due to concern for possible pericardial infusion. Findings included dynamic "pseudo-" outflow tract obstructive physiology due to concentric hypertrophy and hyperdynamic systolic function with mild mitral regurgitation, mild aortic valve regurgitation and small to moderate pericardial effusion, not hemodynamically significant. 12/02/16-left axillary arterial line placement. 12/02/16-intubation. 12/02/16 left subclavian central line placement. 12/02/1612-Doihpf-m-Port removal secondary to sepsis. (Betty Galindo) Patient/Family Conference Issues Discussed: * Palliative care role, purpose, approach * Additional medical, psychosocial, and spiritual history * Patients general health, functional status, and cognitive changes in the months leading up to the current hospitalization * Patient/family understanding of the current medical problems * Patient/family understanding of prognosis * Patients goals of care as best understood from advance directives and/or conversations and/or values * Current medical treatment options and benefits/burdens of those options * Likely scenarios comparing ongoing aggressive care with a transition to comfort measures only * Questions answered to the best of my ability * Palliative care contact information provided (Betty Galindo) Assessment and Plan Disease Oriented Problem List: (1) Edema (2) Obesity (3) Hyperlipidemia (4) Diabetes mellitus (5) Tobacco abuse (6) Esophageal carcinoma (7) SCC (squamous cell carcinoma) (8) Elevated troponin (9) NSTEMI (non-ST elevated myocardial infarction) (10) Rapid atrial fibrillation Symptom Scale: (1) Edema 0-10 Scale: Unable to quantify (2) Pre-syncope 0-10 Scale: Unable to quantify (3) Pain 0-10 Scale: Unable to quantify (4) Dysphagia 0-10 Scale: Unable to quantify Pertinent Non-Medical Issues Psychosocial:This is a 61-year-old male that was born in [place], [place] and moved to [place] when he was 15. He never attended high school after he moved to [place] nor obtained his GED. 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 He was never in the . Spiritual: No spiritual affiliation. Legal: Has designated his daughter Ben La and his girlfriend Luly Bautista as joint healthcare surrogates. Ethical issues impacting care: None noted. . Important Contacts Daughter-Ben La Significant other-Luly Bautista , Mother-Orly Sky (Amauri), [place], [place] . Prognosis His prognosis is poor. He has undergone resection of a left parotid mass but due to its proximity, margins were found to be positive in the final pathology for poorly differentiated squamous cell carcinoma. There was perineural invasion present and subcutaneous tissue invasion of the tumor, staged at T3. Prior to initiating chemotherapy and radiation it was found that he also had an esophageal mass causing stricture which was biopsied as an invasive adenocarcinoma. Plan is for esophageal ultrasound today with EGD and possible stent placement. Upon admission he had a myocardial infarction and underwent stent placement to the left circumflex with a bare metal stent. Additionally on this admission he had acute respiratory failure requiring intubation. During this admission he has had compromise or failure of the heart, the lungs, esophagus and potentially 2 different types of cancer. CT scan showed liver cirrhosis. Labs showed a history of HCV. The possibilities for further compromise leading to possible multisystem organ failure are distinctly possible. . Code Status: Full Code Plan PLAN: Legal decision maker: Currently he is capacitated to make his own decisions however he has designated his daughter Ben and his significant other Luly Bautista as joint healthcare surrogates in case of his incapacity. Goals: Goals remain aggressive at this time. CODE STATUS: FULL CODE SYMPTOMS: Pain: Pain is controlled on PRN morphine and Roxicodone. His pain is mostly located in his abdomen and likely related to his esophageal tumor. Further follow-up with EGD/EUS planned today. Dysphasia: Has difficulty swallowing, worsening since his left parotid surgery. He is taking primarily only liquids. Plan for esophageal stent placement today if possible with EGD/EUS. Presyncope: Presyncopal on admission, he was significantly dehydrated. Currently having no lightheadedness or presyncopal symptoms. He is very tachycardic and is at risk of hemodynamic compromise from the rapid heart rate. He is being followed by electrophysiology and is currently receiving Cardizem IV per protocol, Cardizem 90 mg 4 times a day, digitoxin 0.25 mg daily, metoprolol, 25 mg 4 times a day. Blood pressure remains adequate at this time. Will require continued monitoring. Edema: He has 3+ weeping, pitting edema. This is compromised by his nutritional status with a very low well albumin of 1.8. Would recommend a nutritional consult to assist in dietary modification. He is receiving furosemide 20 mg IV daily. Would recommend increasing this to twice a day or 3 times a day until edema is improved. In summary this is an obese 61-year-old male with multiple comorbidities to include squamous cell carcinoma neck and invasive adenocarcinoma of the esophagus. His admission courses been complicated by NSTEMI, sepsis, encephalopathy, A. fib/RVR and respiratory failure requiring intubation. He is pending an EGD with esophageal stent placement and esophageal ultrasound for tumor staging today. He is aware that his prognosis is poor but at this time wishes to wait for the full workup to be done prior to making end-of-life decisions. Palliative care will continue to support the patient and his family in making those decisions. Palliative care will continue to follow the patient during hospital course as condition evolves, to assist patient/decision-maker with understanding of their medical conditions, weighing benefits/burdens of treatment options, for clarification of goals of treatment. Additionally will assist with any symptoms of palliative concern. . (Betty Galindo) Thank you for the opportunity to participate in the care of Mr. La. (Betty Galindo) Attestation To help prompt me to consider important information that might be impacting today's encounter and assessment, information from prior notes written by myself or my colleagues may have been "brought forward" into today's note. My signature on this note, however, is an attestation that I personally performed the exam, history, and/or decision-making noted today, and, unless otherwise indicated, the interactions with patient, family, and staff as well as the review of records all occurred today. I also attest that the listed assessment and stated plan reflect my best clinical judgment today based on the combination of historical information, prior notes, and today's exam/ interactions. When time spent is documented, it refers only to time spent today by the signer, or if indicated, combined time spent today by collaborating physician/nurse practitioner. . (Betty Galindo) Collaborating MD Comments Chart reviewed. Case discussed with palliative care TIMBER HAND. Above note reviewed and I concur. . (Buddy Paz MD) Betty Galindo Dec 25, 2016 11:18 Buddy Paz MD Feb 22, 2017 11:13
[2016-12-25] MEDS: PANTOPRAZOLE SODIUM 40 MG VIAL IV PUSH SCH ×2 (12:16→23:27)
--- NOTE | 2016-12-25 14:15 | PD.ONC.PN ---
Subjective Subjective Remarks Afebrile overnight. Patient resting in bed in nad. EUS scheduled for this afternoon. Minimal hematemesis. Objective Data Date Time Temp Pulse Resp B/P Pulse Ox O2 Delivery O2 Flow Rate FiO2 12/25/16 13:15 94 12/25/16 12:30 97 Room Air 12/25/16 12:30 98.6 146 18 129/78 97 12/25/16 09:29 98.8 133 18 120/70 96 12/25/16 09:29 96 Room Air 12/25/16 07:01 129 12/25/16 06:00 97 12/25/16 05:00 130 12/25/16 04:00 116 12/25/16 03:00 144 12/25/16 03:00 98.7 128 18 126/77 95 12/25/16 03:00 95 Room Air 12/25/16 02:00 115 12/25/16 01:00 105 12/25/16 00:00 110 12/24/16 23:00 108 12/24/16 23:00 98.5 140 18 131/77 95 12/24/16 23:00 95 Room Air 12/24/16 22:00 126 12/24/16 21:00 106 12/24/16 20:00 78 12/24/16 19:47 93 21 12/24/16 19:30 94 Room Air 12/24/16 19:30 97.5 84 18 151/72 94 12/24/16 19:00 109 12/24/16 18:29 95 Room Air 12/24/16 18:00 108 12/24/16 17:00 110 12/24/16 16:00 98 12/24/16 15:45 99.0 109 20 106/51 95 12/24/16 15:00 94 12/25/16 12/25/16 12/25/16 06:59 14:59 22:59 Intake Total 745 ml Output Total 425 ml Balance 320 ml Result Diagram: 12/25/16 0505 12/25/16 0505 Laboratory Results Laboratory Tests Test 12/25/16 05:05 White Blood Count 6.2 TH/MM3 Red Blood Count 3.13 MIL/MM3 Hemoglobin 9.0 GM/DL Hematocrit 27.6 % Mean Corpuscular Volume 88.2 FL Mean Corpuscular Hemoglobin 28.6 PG Mean Corpuscular Hemoglobin 32.5 % Concent Red Cell Distribution Width 20.8 % Platelet Count 166 TH/MM3 Mean Platelet Volume 7.3 FL Sodium Level 132 MEQ/L Potassium Level 3.9 MEQ/L Chloride Level 94 MEQ/L Carbon Dioxide Level 30.4 MEQ/L Anion Gap 8 MEQ/L Blood Urea Nitrogen 14 MG/DL Creatinine 0.63 MG/DL Estimat Glomerular Filtration 130 ML/MIN Rate Random Glucose 141 MG/DL Calcium Level 8.0 MG/DL Culture Results Microbiology Date/Time Procedure Status Source Growth 12/24/16 12:42 Stool Occult Blood ([facility]) - Final Complete Stool Stool HEMOCCULT NEGATIVE Administered Medications Medications (Trade) Dose Ordered Sig/Geovanny Route PRN Reason Start Time Stop Time Status Last Admin Dose Admin Sodium Chloride (NS Flush) 2 ml UNSCH PRN IV FLUSH FLUSH AFTER USING IV ACCESS 11/30/16 02:45 12/24/16 09:59 Sodium Chloride (NS Flush) 2 ml BID IV FLUSH 11/30/16 09:00 12/25/16 08:08 Oxycodone HCl (Roxicodone) 5 mg Q4H PRN PO PAIN SCALE 3 TO 5 11/30/16 02:45 12/25/16 05:24 Senna/Docusate Sodium (Rere-Colace) 1 tab BID PO 11/30/16 09:00 12/25/16 08:06 Acetaminophen (Tylenol) 325 mg Q4H PRN PO PAIN SCALE 1 TO 2 11/30/16 13:45 12/13/16 17:13 Clopidogrel Bisulfate (Plavix) 75 mg DAILY PO 12/01/16 09:00 12/25/16 08:06 Ondansetron HCl (Zofran Inj) 4 mg Q4H PRN IV NAUSEA 11/30/16 13:45 12/24/16 22:41 Sodium Chloride (NS Flush) 5 ml Q21D IV FLUSH 11/30/16 18:00 12/21/16 17:19 Heparin Sodium (Porcine) (Heparin Central Flush) 500 units Q21D IV FLUSH 11/30/16 18:00 11/30/16 18:04 Acetaminophen (Tylenol 650 Mg/ 20 ml Liq) 650 mg Q6H PRN PO FEVER 12/01/16 17:30 12/02/16 01:07 Chlorhexidine Gluconate (Peridex 0.12% Liq) 15 ml BID@08,20 MT 12/02/16 08:00 12/24/16 20:00 Polyethylene Glycol (Miralax) 17 gm DAILY PO 12/04/16 09:00 12/24/16 09:52 Thiamine HCl (Vitamin B1) 100 mg DAILY PO 12/05/16 09:00 12/25/16 08:07 Multivitamins (Theragran) 1 tab DAILY PO 12/05/16 09:00 12/25/16 08:06 Folic Acid (Folate) 1 mg DAILY PO 12/05/16 09:00 12/25/16 08:07 Rifampin 300 mg 300 mg Q12HR PO 12/06/16 09:15 01/15/17 23:00 12/24/16 21:00 Cefazolin Sodium/ Dextrose (Ancef 2 Gm Premix) 50 ml @ 100 mls/hr Q8H IV 12/06/16 10:00 01/15/17 23:00 12/25/16 12:15 Lorazepam (Ativan Inj) 1 mg Q4H PRN IV PUSH ANXIETY AND/OR AGITATION 12/09/16 15:15 12/19/16 01:59 Atorvastatin Calcium (Lipitor) 40 mg HS PO 12/12/16 21:00 12/24/16 21:00 Sodium Chloride (NS Flush) See Protocol DAILY IV FLUSH 12/13/16 09:00 12/25/16 08:08 Heparin Sodium (Porcine) (Heparin Central Flush) See Protocol DAILY IV FLUSH 12/13/16 09:00 12/25/16 08:08 Sodium Chloride (NS Flush) UNSCH PRN IV FLUSH SEE PROTOCOL TABLE 12/12/16 17:00 12/19/16 01:59 Insulin Detemir (Levemir Inj) 6 units Q12HR SQ 12/14/16 09:00 12/25/16 08:07 Lorazepam (Ativan) 0.5 mg DAILY PRN PO ANXIETY 12/18/16 15:45 12/19/16 08:29 Diltiazem HCl 90 mg 90 mg Q6H PO 12/18/16 23:00 12/25/16 12:14 Diltiazem HCl/ Sodium Chloride (Cardizem Inj/NS Inj) 125 ml @ 0 mls/hr TITRATE IV 12/19/16 18:15 12/25/16 09:47 Prednisone (Deltasone) 10 mg DAILY PO 12/21/16 09:00 12/25/16 08:07 Oxycodone HCl (Roxicodone) 15 mg Q4H PRN PO PAIN 6-10 12/21/16 11:00 12/24/16 23:56 Digoxin (Lanoxin) 0.25 mg DAILY PO 12/22/16 09:00 12/25/16 08:06 Sucralfate (Carafate Liq) 1 gm ACHS PO 12/22/16 11:00 12/25/16 12:14 Metoprolol Tartrate (Lopressor Inj) 5 mg Q1HR PRN IV PUSH RAPID HEART RATE 12/22/16 09:45 12/24/16 22:59 Pantoprazole Sodium (Protonix Inj) 40 mg Q12H IV PUSH 12/22/16 10:00 12/25/16 12:16 Aspirin (Ecotrin Ec) 81 mg DAILY PO 12/23/16 09:00 12/25/16 08:06 Metoprolol Tartrate (Lopressor) 25 mg Q6HR PO 12/22/16 13:00 12/25/16 12:14 Morphine Sulfate (Morphine Inj) 2 mg Q4H PRN IV PUSH pain >5 12/23/16 00:00 12/25/16 12:27 Furosemide (Lasix Inj) 20 mg DAILY IV PUSH 12/24/16 09:15 12/25/16 08:08 Objective Remarks GENERAL: Chronically ill-appearing male sitting up in bed in [facility] SKIN: Warm and dry. HEAD: Normocephalic. EYES: No injection or drainage. NECK: Supple, trachea midline. CARDIOVASCULAR: IRR RESPIRATORY: anterior ray clear GASTROINTESTINAL: Abdomen soft, non-tender, nondistended. EXTREMITIES: No cyanosis. lower extremities edematous with weeping. NEUROLOGICAL: awake and alert. normal speech. Assessment/Plan Problem List: (1) Esophageal adenocarcinoma Status: Acute Plan: --having EUS with possible stent placement on 12/25 --++hemoptysis --we plan to give weekly Erbitux and XRT outpatient. --patient had OP EGD with biopsy, pathology showed adenocarcinoma. --EGD/Colonoscopy, 11/20/16--showed long stricture in the mid esophagus and distal esophagus, multiple biopsies were performed Pathology revealed invasive adenocarcinoma- distal esophagus --XRT simulation done 12/19. --XRT planned to start by next week. (2) SCC (squamous cell carcinoma) Status: Acute Plan: --has a head and neck, lung malignancy which was locally advanced. --received definitive treatment with surgery. Post surgery he had positive margins and some poor risk features and he was about to get concurrent chemotherapy and radiation and adjuvantly to achieve local control of the disease --PET scan to stage his disease prior to treatment showed an esophageal mass (3) Normocytic anemia Status: Acute Plan: --hgb stable but now patient has worsening hemoptysis/hematemesis, likely d/t esophageal mass --transfuse packed red blood cells if his hemoglobin drops below 8. --s/p iron infusion (4) NSTEMI (non-ST elevated myocardial infarction) Status: Acute Plan: --had elevated troponin and ST-segment changes consistent with acute TX. --s/p cardiac cath, stent placement to proximal left circumflex --cardiology following --on plavix and ASA (5) Afib Status: Acute Plan: --cardiology following. (6) Sepsis Status: Resolved Plan: BC, 7 no growth BC, 12/07 no growth --BC, 12/05 +, S. Aureus --had removal of port, + S. 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 Also with a new diagnosis of early stage gastric cancer Plan 1. XRT/chemotherapy as planned treatment outpatient. 2. EUS today 3. consult General surgery for feeding tube placement. Attending Statement The exam, history, and the medical decision-making described in the above note were completed with the assistance of the mid-level provider. I reviewed and agree with the findings presented. I attest that I had a [id number] encounter with the patient on the same day, and personally performed and documented my assessment and findings in the medical record. EUS today will f/u results patient agreeable to feeding tube placement prior to chemotherapy and radiation to the gastric mass Time spent in discussion with patient 30 minutes remains deconditioned will need PT/rehab Problem Qualifiers (1) Afib: Qualified Code: I48.91 - Atrial fibrillation, unspecified type (2) Sepsis: Qualified Code: A41.9 - Sepsis, due to unspecified organism Perla Duran Dec 25, 2016 14:15 Brant Bell MD Dec 25, 2016 23:46
--- NOTE | 2016-12-25 14:34 | HHI.PR ---
Subjective Remarks Follow-up for multiple medical condition listed in the assessment/plan Patient has no complaints. Deny any shortness of breathing, chest pain, palpitation, lightheadedness or dizziness. Patient very anxious to go home. He agrees to the EUS. Dealt with patient's nurse. Objective Vitals Vital Signs Date Time Temp Pulse Resp B/P Pulse Ox O2 Delivery O2 Flow Rate FiO2 12/25/16 13:15 94 12/25/16 12:30 97 Room Air 12/25/16 12:30 98.6 146 18 129/78 97 12/25/16 09:29 98.8 133 18 120/70 96 12/25/16 09:29 96 Room Air 12/25/16 07:01 129 12/25/16 06:00 97 12/25/16 05:00 130 12/25/16 04:00 116 12/25/16 03:00 144 12/25/16 03:00 98.7 128 18 126/77 95 12/25/16 03:00 95 Room Air 12/25/16 02:00 115 12/25/16 01:00 105 12/25/16 00:00 110 12/24/16 23:00 108 12/24/16 23:00 98.5 140 18 131/77 95 12/24/16 23:00 95 Room Air 12/24/16 22:00 126 12/24/16 21:00 106 12/24/16 20:00 78 12/24/16 19:47 93 21 12/24/16 19:30 94 Room Air 12/24/16 19:30 97.5 84 18 151/72 94 12/24/16 19:00 109 12/24/16 18:29 95 Room Air 12/24/16 18:00 108 12/24/16 17:00 110 12/24/16 16:00 98 12/24/16 15:45 99.0 109 20 106/51 95 12/24/16 15:00 94 I/O 12/24/16 12/24/16 12/24/16 12/25/16 12/25/16 12/25/16 07:00 15:00 23:00 07:00 15:00 23:00 Intake Total 990 ml 955 ml 745 ml Output Total 200 ml 1275 ml 425 ml Balance 790 ml -320 ml 320 ml Intake Oral 240 ml 955 ml 240 ml Oral Supplement 237 ml IV Total 250 ml 268 ml Packed Cells 500 ml Output Urine Total 200 ml 1275 ml 225 ml Emesis 200 ml # Voids 1 # Bowel Movements 0 1 1 Result Diagram: 12/25/16 0505 12/25/16 0505 Objective Remarks GENERAL: Patient laying in bed and is comfortable. CARDIOVASCULAR: tachycardic irregular heart rhythm. 3/6 murmur. RESPIRATORY: Clear to auscultation. Breath sounds equal bilaterally. No wheezes GASTROINTESTINAL: Abdomen soft, non-tender, nondistended. MUSCULOSKELETAL: sitting up on side of bed, able to move his upper extremities. +1-2 lower extremity edema. Procedures central line/ arterial line placement intubation cardiac catheterization port removal Medications and IVs Current Medications Sodium Chloride (NS 1000 ml Inj) 1,000 ml @ 999 mls/hr BOLUS ONCE IV Last administered on 11/30/16 01:52; Start 11/30/16 at 00:00; Stop 11/30/16 at 01:00 ; Status DC Morphine Sulfate (Morphine Inj) 4 mg ONCE ONCE IV PUSH Last administered on 01:53; Start 11/30/16 at 01:00; Stop 11/30/16 at 01:01; Status DC Potassium Bicarb/ Potassium Chloride (K-Lyte Cl Eff) 75 meq ONCE ONCE PO Last administered on 11/30/16 01:53; Start 11/30/16 at 01:30; Stop 11/30/16 at 01:31; Status DC Iohexol (Omnipaque 350 Inj) 75 ml STK-MED ONCE IV ; Start 11/30/16 at 01:37; Stop 11/30/16 at 01:38; Status DC Calcium Gluconate 1 gm 1 gm ONCE ONCE IV PUSH Last administered on 11/30/16 02:58; Start 11/30/16 at 02:45; Stop 11/30/16 at 02:46; Status DC Sodium Chloride (NS 1000 ml Inj) 1,000 ml @ 100 mls/hr Q10H IV Last administered on 11/30/16 02:58; Start 11/30/16 at 02:33; Stop 11/30/16 at 13:54 ; Status DC Sodium Chloride (NS Flush) 2 ml UNSCH PRN IV FLUSH FLUSH AFTER USING IV ACCESS Last administered on 12/24/16 09:59; Start 11/30/16 at 02:45 Sodium Chloride (NS Flush) 2 ml BID IV FLUSH Last administered on 12/25/16 08: 08; Start 11/30/16 at 09:00 Ondansetron HCl (Zofran Inj) 4 mg Q6H PRN IVP NAUSEA OR VOMITING; Start at 02:45; Stop 11/30/16 at 13:51; Status DC Acetaminophen (Tylenol) 650 mg Q6H PRN PO FEVER/PAIN SCALE 1 TO 2; Start at 02:45; Stop 11/30/16 at 13:54; Status DC Hydromorphone HCl (Dilaudid Pf Inj) 1 mg Q3H PRN IV Pain 6-10 Last administered on 12/04/16 06:52; Start 11/30/16 at 02:45; Stop 12/04/16 at 09:25 ; Status DC Oxycodone HCl (Roxicodone) 5 mg Q4H PRN PO PAIN SCALE 3 TO 5 Last administered on 12/25/16 05:24; Start 11/30/16 at 02:45 Senna/Docusate Sodium (Rere-Colace) 1 tab BID PO Last administered on 08:06; Start 11/30/16 at 09:00 Magnesium Hydroxide (Milk Of Magnesia Liq) 30 ml Q12H PRN PO MILD - MODERATE CONSTIPATION; Start 11/30/16 at 02:45 Sennosides (Senokot) 17.2 mg Q12H PRN PO MODERATE - SEVERE CONSTIPATION; Start 11/30/16 at 02:45 Bisacodyl (Dulcolax Supp) 10 mg DAILY PRN RECTAL SEVERE CONSITIPATION; Start at 02:45 Lactulose (Lactulose Liq) 30 ml DAILY PRN PO SEVERE CONSITIPATION; Start at 02:45 Pantoprazole Sodium (Protonix Inj) 40 mg Q12H IV PUSH Last administered on 12/12 21:10; Start 11/30/16 at 09:00; Stop 12/13/16 at 08:25; Status DC Miscellaneous Information Patient in critical care unit? Ass... Q361D .XX ; Start 11/30/16 at 05:15 Chlorhexidine Gluconate (Chlorhexidine 2% Cloth) 3 pack DAILY@04 TOPICAL Last administered on 12/05/16 04:00; Start 12/01/16 at 04:00; Stop 12/05/16 at 04:01 ; Status DC Chlorhexidine Gluconate (Chlorhexidine 2% Cloth) 3 pack UNSCH PRN TOPICAL HYGIENIC CARE; Start 11/30/16 at 05:15; Stop 12/05/16 at 05:12; Status DC Aspirin 81 mg 81 mg ONCE ONCE PO Last administered on 11/30/16 12:19; Start 11/30/16 at 12:00; Stop 11/30/16 at 12:01; Status DC Heparin Sodium/ Dextrose (Heparin-D5W Inj) 250 ml @ 0 mls/hr TITRATE IV Last administered on 11/30/16 12:21; Start 11/30/16 at 12:15; Stop 11/30/16 at 13:49 ; Status DC Heparin Sodium (Porcine) (Heparin Inj) 5,000 units UNSCH PRN IV aPTT less than 25; Start 11/30/16 at 12:15; Stop 11/30/16 at 13:49; Status DC Heparin Sodium (Porcine) (Heparin Inj) 2,500 units UNSCH PRN IV aPTT 25 to 39; Start 11/30/16 at 12:15; Stop 11/30/16 at 13:49; Status DC Heparin Sodium (Porcine) 4000 units 4,000 units ONCE ONCE IV Last administered on 11/30/16 12:19; Start 11/30/16 at 12:15; Stop 11/30/16 at 12:16 ; Status DC Heparin Sodium/ Sodium Chloride (Heparin-NS/Pf Inj) 500 ml @ As Directed STK- MED ONCE .ROUTE Last administered on 11/30/16 12:36; Start 11/30/16 at 12:36; Stop 11/30/16 at 12:37; Status DC Midazolam HCl (Versed Inj) 2 mg STK-MED ONCE .ROUTE Last administered on 12:36; Start 11/30/16 at 12:36; Stop 11/30/16 at 12:37; Status DC Fentanyl Citrate (fentaNYL INJ) 100 mcg STK-MED ONCE .ROUTE Last administered on 11/30/16 12:36; Start 11/30/16 at 12:36; Stop 11/30/16 at 12:37; Status DC Dextrose (D50w (Syr) Inj) 50 ml STK-MED ONCE .ROUTE Last administered on 12:53; Start 11/30/16 at 12:53; Stop 11/30/16 at 12:54; Status DC Phenylephrine HCl (Neosynephrine Inj) 40 mg STK-MED ONCE .ROUTE Last administered on 11/30/16 13:04; Start 11/30/16 at 13:04; Stop 11/30/16 at 13:05 ; Status DC Clopidogrel Bisulfate 600 mg 600 mg STK-MED ONCE .ROUTE ; Start 11/30/16 at 13: 25; Stop 11/30/16 at 13:26; Status DC Sodium Chloride (NS 1000 ml Inj) 1,000 ml @ 125 mls/hr Q8H IV Last administered on 11/30/16 21:51; Start 11/30/16 at 13:42; Stop 11/30/16 at 17:41 ; Status DC Acetaminophen (Tylenol) 325 mg Q4H PRN PO PAIN SCALE 1 TO 2 Last administered on 12/13/16 17:13; Start 11/30/16 at 13:45 Aspirin (Aspirin Chew) 81 mg DAILY PO Last administered on 12/21/16 08:29; Start 11/30/16 at 13:45; Stop 12/22/16 at 09:42; Status DC Clopidogrel Bisulfate (Plavix) 600 mg ONCE ONCE PO ; Start 11/30/16 at 13:45; Stop 11/30/16 at 13:47; Status DC Clopidogrel Bisulfate (Plavix) 75 mg DAILY PO Last administered on 12/25/16 08 :06; Start 12/01/16 at 09:00 Miscellaneous Information 1 ONCE ONCE XX ; Start 11/30/16 at 13:45; Stop at 13:49; Status DC Atropine Sulfate (Atropine Inj) 0.5 mg UNSCH PRN IV VAGAL REPONSE; Start at 13:45 Ondansetron HCl (Zofran Inj) 4 mg Q4H PRN IV NAUSEA Last administered on 22:41; Start 11/30/16 at 13:45 Metoprolol Tartrate (Lopressor) 12.5 mg BID PO Last administered on 12/01/16 09:51; Start 11/30/16 at 21:00; Stop 12/14/16 at 16:12; Status DC Atorvastatin Calcium (Lipitor) 10 mg HS PO Last administered on 12/02/16 21:22 ; Start 11/30/16 at 21:00; Stop 12/12/16 at 09:02; Status DC Miscellaneous Information HOLD METFORMIN FOR... Q24H .XX ; Start 11/30/16 at 15: 00; Stop 12/02/16 at 14:59; Status DC Potassium Chloride (KCl 20 Meq Premix Inj) 100 ml @ 50 mls/hr Q2H IV Last administered on 11/30/16 19:24; Start 11/30/16 at 18:00; Stop 11/30/16 at 21:59 ; Status DC Sodium Chloride (NS Flush) 5 ml Q21D IV FLUSH Last administered on 12/21/16 17: 19; Start 11/30/16 at 18:00 Heparin Sodium (Porcine) (Heparin Central Flush) 500 units Q21D IV FLUSH Last administered on 11/30/16 18:04; Start 11/30/16 at 18:00 Sodium Chloride (NS Flush) 5 ml UNSCH PRN IV FLUSH SEE LABEL COMMENTS; Start at 18:00 Heparin Sodium (Porcine) (Heparin Central Flush) 250 units UNSCH PRN IV FLUSH FLUSH AFTER USING IV ACCESS; Start 11/30/16 at 18:00 Lorazepam (Ativan Inj) 0.5 mg ONCE ONCE IV PUSH Last administered on 06:37; Start 12/01/16 at 06:30; Stop 12/01/16 at 06:31; Status DC Lorazepam 0.5 mg 0.5 mg ONCE ONCE IV Last administered on 12/01/16 07:43; Start 12/01/16 at 07:45; Stop 12/01/16 at 07:46; Status DC Potassium Chloride 30 meq/ Sodium Chloride 115 ml @ 38.333 mls/ hr Q3H IV- CENTRAL Last administered on 12/01/16 12:43; Start 12/01/16 at 08:30; Stop at 14:29; Status DC Vancomycin HCl 2100 mg/Sodium Chloride 521 ml @ 250 mls/hr ONCE ONCE IV Last administered on 12/01/16 12:43; Start 12/01/16 at 12:00; Stop 12/01/16 at 14:06 ; Status DC Pharmacy Profile Note 0 ml @ 0 mls/hr UNSCH OTHER ; Start 12/01/16 at 10:30; Status UNV Pharmacy Profile Note 0 ml @ 0 mls/hr UNSCH OTHER ; Start 12/01/16 at 11:00; Stop 12/01/16 at 13:07; Status DC Vancomycin HCl 1250 mg/Sodium Chloride 262.5 ml @ 262.5 mls/ hr Q24H IV ; Start 12/02/16 at 09:00; Stop 12/02/16 at 09:00; Status DC Ceftriaxone Sodium 2000 mg/ Sodium Chloride 100 ml @ 200 mls/hr Q24H IV ; Start 12/01/16 at 14:00; Stop 12/01/16 at 16:10; Status DC Thiamine HCl/ Sodium Chloride (Thiamine Inj/NS Inj) 101 ml @ 101 mls/hr DAILY IV Last administered on 12/01/16 14:09; Start 12/01/16 at 13:00; Stop at 08:28; Status DC Flumazenil (Romazicon Inj) 0.2 mg Q1M PRN IV PUSH SEE LABEL COMMENTS; Start at 13:00 Lorazepam (Ativan) 1 mg Q4H PRN PO CIWA 8 - 10; Start 12/01/16 at 13:00; Stop 12/04/16 at 09:29; Status DC Lorazepam (Ativan Inj) 1 mg Q4H PRN IV PUSH CIWA 8 - 10 Last administered on 21:52; Start 12/01/16 at 13:00; Stop 12/04/16 at 09:29; Status DC Lorazepam (Ativan) 2 mg Q2H PRN PO CIWA 11-14; Start 12/01/16 at 13:00; Stop at 09:29; Status DC Lorazepam (Ativan Inj) 2 mg Q2H PRN IV PUSH CIWA 11-14 Last administered on 7/ 18/17at 04:37; Start 12/01/16 at 13:00; Stop 12/04/16 at 09:29; Status DC Lorazepam (Ativan Inj) 2 mg Q1H PRN IV PUSH CIWA 15-20; Start 12/01/16 at 13:00 ; Stop 12/04/16 at 09:29; Status DC Lorazepam 2 mg 2 mg Q15M PRN IV PUSH CIWA > 20; Start 12/01/16 at 13:00; Stop 12/04/16 at 09:29; Status DC Sodium Chloride 1,000 ml @ 999 mls/hr BOLUS ONCE IV Last administered on 12/01 14:09; Start 12/01/16 at 13:00; Stop 12/01/16 at 14:06; Status DC Sodium Chloride (NS 1000 ml Inj) 1,000 ml @ 999 mls/hr BOLUS ONCE IV Last administered on 12/01/16 14:09; Start 12/01/16 at 13:00; Stop 12/01/16 at 14:06 ; Status DC Morphine Sulfate 8 mg 8 mg STK-MED ONCE .ROUTE Last administered on 12/01/16 14:06; Start 12/01/16 at 14:04; Stop 12/01/16 at 14:05; Status DC Dexmedetomidine HCl/Sodium Chloride (Precedex Inj/NS Inj) 52 ml @ 0 mls/hr TITRATE IV ; Start 12/01/16 at 14:30; Stop 12/03/16 at 07:50; Status DC Albuterol/ Ipratropium (Duoneb Neb) 1 ampule Q6HR NEB NEB Last administered on 12/05/16 15:58; Start 12/01/16 at 16:00; Stop 12/05/16 at 16:00; Status DC Albuterol/ Ipratropium 1 ampule 1 ampule Q2HR NEB PRN NEB SHORTNESS OF BREATH Last administered on 12/17/16 01:21; Start 12/01/16 at 14:30 Cefazolin Sodium/ Dextrose 50 ml @ 100 mls/hr Q8H IV Last administered on 12/03 08:27; Start 12/01/16 at 18:00; Stop 12/06/16 at 09:11; Status DC Pharmacy Profile Note 0 ml @ 0 mls/hr UNSCH OTHER ; Start 12/01/16 at 16:15; Stop 12/03/16 at 10:51; Status DC Sodium Chloride (NS 1000 ml Inj) 1,000 ml @ 50 mls/hr Q20H IV Last administered on 12/04/16 05:40; Start 12/01/16 at 16:30; Stop 12/04/16 at 09:25 ; Status DC Acetaminophen 650 mg 650 mg Q6H PRN PO FEVER Last administered on 12/02/16 01 :07; Start 12/01/16 at 17:30 Vancomycin HCl/ Sodium Chloride (Vancomycin Inj/ NS 500 ml Inj) 521 ml @ 250 mls/hr Q18H IV Last administered on 12/02/16 05:36; Start 12/02/16 at 06:00; Stop 12/02/16 at 11:38; Status DC Miscellaneous Information SPECIFIC LAB TO BE DRAWN:VANCO TROUGH DATE TO... ONCE ONCE .XX ; Start 12/03/16 at 17:45; Stop 12/03/16 at 17:46; Status Cancel Sodium Chloride (NS 1000 ml Inj) 1,000 ml @ 999 mls/hr BOLUS ONCE IV Last administered on 12/02/16 06:30; Start 12/02/16 at 06:30; Stop 12/02/16 at 07:30 ; Status DC Methylprednisolone Sodium Succinate (SoluMEDROL INJ) 125 mg ONCE STAT IV PUSH Last administered on 12/02/16 07:14; Start 12/02/16 at 06:52; Stop 12/02/16 at 06:59; Status DC Methylprednisolone Sodium Succinate (SoluMEDROL INJ) 60 mg Q8HR IV PUSH Last administered on 12/05/16 05:17; Start 12/02/16 at 14:00; Stop 12/05/16 at 09:00 ; Status DC Etomidate (Amidate Inj) 20 mg STK-MED ONCE .ROUTE Last administered on 08:07; Start 12/02/16 at 07:29; Stop 12/02/16 at 07:30; Status DC Midazolam HCl (Versed Inj) 5 mg STK-MED ONCE .ROUTE Last administered on 08:07; Start 12/02/16 at 07:29; Stop 12/02/16 at 07:30; Status DC Rocuronium [place] (Zemuron Inj) 50 mg STK-MED ONCE .ROUTE Last administered on 12/02/16 08:08; Start 12/02/16 at 07:30; Stop 12/02/16 at 07:31; Status DC Enoxaparin Sodium (Lovenox Inj) 40 mg Q24H SQ Last administered on 12/20/16 09: 04; Start 12/02/16 at 09:00; Stop 12/20/16 at 09:13; Status DC Chlorhexidine Gluconate 15 ml 15 ml BID@08,20 MT Last administered on 12/24/16 20:00; Start 12/02/16 at 08:00 Propofol 100 ml @ 0 mls/hr TITRATE IV Last administered on 12/02/16 19:59; Start 12/02/16 at 08:00; Stop 12/03/16 at 07:50; Status DC Fentanyl Citrate (fentaNYL DRIP) 250 ml @ 0 mls/hr TITRATE IV Last administered on 12/03/16 04:05; Start 12/02/16 at 08:00; Stop 12/04/16 at 09:25 ; Status DC Metoprolol Tartrate 2.5 mg 2.5 mg Q6H PRN IV PUSH HR >110 Last administered on 12/20/16 18:38; Start 12/02/16 at 08:15; Stop 12/22/16 at 09:53; Status DC Multivitamins/ Thiamine HCl/ Folic Acid/Sodium Chloride (Mvi-12 Inj/ Thiamine Inj/ Folvite Inj/1/2 NS 500 ml Inj) 511.2 ml @ 125 mls/hr DAILY IV Last administered on 12/04/16 09:21; Start 12/02/16 at 09:00; Stop 12/05/16 at 09:00 ; Status DC Sodium Bicarbonate (Sodium Bicarbonate 8.4% Inj) 50 meq STK-MED ONCE .ROUTE ; Start 12/02/16 at 09:06; Stop 12/02/16 at 09:07; Status DC Sodium Bicarbonate 50 meq 50 meq NOW ONCE IV PUSH Last administered on 11:16; Start 12/02/16 at 09:45; Stop 12/02/16 at 09:46; Status DC Vasopressin/ Dextrose (Pitressin Inj/ D5W 100 ml Inj) 100 ml @ 4.5 mls/hr [id number] IV Last administered on 12/03/16 04:17; Start 12/02/16 at 11:04; Stop 12/06/16 at 07:32; Status DC Sodium Bicarbonate (Sodium Bicarbonate 8.4% Inj) 50 meq ONCE ONCE IV PUSH Last administered on 12/02/16 11:38; Start 12/02/16 at 11:15; Stop 12/02/16 at 11:22; Status DC Rocuronium [place] 50 mg 50 mg BOLUS ONCE IV Last administered on 12/02/16 11 :39; Start 12/02/16 at 11:15; Stop 12/02/16 at 11:22; Status DC Sodium Bicarbonate 50 ml @ As Directed STK-MED ONCE .ROUTE Last administered on 12/02/16 15:53; Start 12/02/16 at 11:06; Stop 12/02/16 at 11:07; Status DC Vancomycin HCl 2000 mg/Sodium Chloride 520 ml @ 250 mls/hr Q18H IV Last administered on 12/02/16 23:46; Start 12/03/16 at 00:00; Stop 12/03/16 at 10:51 ; Status DC Norepinephrine Bitartrate (Levophed-Dextrose Drip) 250 ml @ 0 mls/hr TITRATE IV Last administered on 12/03/16 04:05; Start 12/02/16 at 15:15; Stop 12/08/16 at 10:23; Status DC Terbutaline Sulfate 1 mg 1 mg UNSCH PRN SQ For Extravasation; Start 12/02/16 at 15:15 Sodium Bicarbonate/ Sterile Water (Sodium Bicarbonate 8.4% Inj/Sterile Water For Inj) 1,000 ml @ 150 mls/hr Q6H40M IV Last administered on 12/03/16 04:16 ; Start 12/02/16 at 16:00; Stop 12/03/16 at 07:49; Status DC Iohexol (OMNIPAQUE 350 INJ (Rug Repairer)) 100 ml STK-MED ONCE OTHER ; Start at 12:30; Stop 12/02/16 at 15:48; Status DC Lidocaine HCl (Xylocaine 1% Inj (50 ml)) 50 ml STK-MED ONCE .ROUTE ; Start 12/02 at 19:06; Stop 12/02/16 at 19:07; Status DC Dextrose (D50w (Vial) Inj) 50 ml UNSCH PRN IV HYPOGLYCEMIA-SEE COMMENTS; Start 12/02/16 at 22:30 Glucagon (Glucagon Inj) 1 mg UNSCH PRN OTHER HYPOGLYCEMIA-SEE COMMENTS; Start 12/02/16 at 22:30 Insulin Aspart 1 1 Q4HR SQ Last administered on 12/14/16 04:00; Start at 00:00; Stop 12/14/16 at 08:16; Status DC Midazolam HCl (Versed 100 Mg/ ml Inj) 100 ml @ 0 mls/hr TITRATE IV ; Start 12/03 at 08:00; Stop 12/04/16 at 09:25; Status DC Polyethylene Glycol (Miralax) 17 gm DAILY PO Last administered on 12/24/16 09: 52; Start 12/04/16 at 09:00 Bumetanide (Bumex Inj) 1 mg STK-MED ONCE .ROUTE ; Start 12/03/16 at 11:46; Stop 12/03/16 at 11:47; Status DC Bumetanide 1 mg 1 mg NOW ONCE IV PUSH ; Start 12/03/16 at 15:00; Stop 12/03/16 at 15:01; Status DC Cefepime HCl/ Sodium Chloride (Maxipime Inj/NS Inj) 100 ml @ 200 mls/hr Q8H IV Last administered on 12/06/16 08:16; Start 12/03/16 at 17:00; Stop 12/06/16 at 09:08; Status DC Bumetanide 1 mg 1 mg ONCE ONCE IV PUSH Last administered on 12/04/16 10:00; Start 12/04/16 at 09:30; Stop 12/04/16 at 09:32; Status DC Potassium Chloride (KCl 40 Meq Premix Inj) 100 ml @ 25 mls/hr Q4H IV ; Start at 10:00; Stop 12/04/16 at 17:59; Status DC Morphine Sulfate 2 mg 2 mg Q3H PRN IV PUSH pain 5-10 Last administered on 05:16; Start 12/04/16 at 09:30; Stop 12/05/16 at 09:01; Status DC Potassium Chloride 100 ml @ 50 mls/hr Q2H PRN IV For Potassium 2.8 - 3.2 mEq/ L Last administered on 12/04/16t 21:17; Start 12/04/16 at 09:30; Stop 12/16/16 at 07:44; Status DC Potassium Chloride (KCl 20 Meq Premix Inj) 100 ml @ 50 mls/hr Q2H PRN IV For Potassium 2.8 - 3.2 mEq/L; Start 12/04/16 at 09:30; Stop 12/16/16 at 07:44; Status DC Potassium Bicarb/ Potassium Chloride 50 meq 50 meq UNSCH PRN PO For Potassium 3.3 - 3.5 mEq/L; Start 12/04/16 at 09:30; Stop 12/16/16 at 07:44; Status DC Potassium Chloride 100 ml @ 25 mls/hr UNSCH PRN IV For Potassium 3.3 - 3.5 mEq /L; Start 12/04/16 at 09:30; Stop 12/16/16 at 07:44; Status DC Potassium Chloride 100 ml @ 50 mls/hr Q2H PRN IV For Potassium 3.3 - 3.5 mEq/L ; Start 12/04/16 at 09:30; Stop 12/16/16 at 07:44; Status DC Magnesium Sulfate/ Sodium Chloride (Magnesium Sulfate Inj/NS Inj) 100 ml @ 50 mls/hr UNSCH PRN IV For Magnesium 0.9 - 1.1 mg/dL; Start 12/04/16 at 09:30; Stop 12/16/16 at 07:44; Status DC Magnesium Oxide 800 mg 800 mg UNSCH PRN PO For Magnesium 1.2 - 1.6 mg/dL; Start 12/04/16 at 09:30; Stop 12/16/16 at 07:44; Status DC Magnesium Sulfate/ Sodium Chloride (Magnesium Sulfate Inj/NS Inj) 100 ml @ 50 mls/hr UNSCH PRN IV For Magnesium 1.2 - 1.6 mg/dL; Start 12/04/16 at 09:30; Stop 12/16/16 at 07:44; Status DC Potassium Phosphate 2000 mg 2,000 mg Q4H PRN PO For Phosphorus < 2.5 mg/dL; Start 12/04/16 at 09:30; Stop 12/16/16 at 07:45; Status DC Sodium Phosphate/ Sodium Chloride (Sodium Phosphate Inj/NS 250 ml Inj) 250 ml @ 42 mls/hr UNSCH PRN IV For Phosphorus < 2.5 mg/dL Last administered on 06:41; Start 12/04/16 at 09:30; Stop 12/16/16 at 07:45; Status DC Potassium Phosphate 2000 mg 2,000 mg UNSCH PRN PO/TUBE SEE LABEL COMMENTS; Start 12/04/16 at 09:30; Stop 12/16/16 at 07:45; Status DC Potassium Phosphate/Sodium Chloride (Potassium Phosphate Inj/NS 250 ml Inj) 260 ml @ 42 mls/hr UNSCH PRN IV SEE LABEL COMMENTS; Start 12/04/16 at 09:30; Stop 12/16/16 at 07:45; Status DC Potassium Bicarb/ Potassium Chloride (K-Lyte Cl Eff) 25 meq ONCE ONCE PO ; Start 12/04/16 at 09:30; Stop 12/04/16 at 09:42; Status DC Bumetanide 1 mg 1 mg ONCE ONCE IV PUSH Last administered on 12/04/16 12:32; Start 12/04/16 at 12:00; Stop 12/04/16 at 12:01; Status DC Calcium Gluconate/ Sodium Chloride (Calcium Gluconate Inj/NS Inj) 110 ml @ 110 mls/hr ONCE ONCE IV Last administered on 12/05/16 10:29; Start 12/05/16 at 09 :30; Stop 12/05/16 at 10:29; Status DC Methylprednisolone Sodium Succinate (SoluMEDROL INJ) 40 mg Q12HR IV PUSH Last administered on 12/10/16 20:09; Start 12/05/16 at 09:00; Stop 12/11/16 at 09:04 ; Status DC Thiamine HCl (Vitamin B1) 100 mg DAILY PO Last administered on 12/25/16 08:07 ; Start 12/05/16 at 09:00 Multivitamins (Theragran) 1 tab DAILY PO Last administered on 12/25/16 08:06; Start 12/05/16 at 09:00 Folic Acid (Folate) 1 mg DAILY PO Last administered on 12/25/16 08:07; Start 12/05/16 at 09:00 Morphine Sulfate (Morphine Inj) 2 mg Q2H PRN IV PUSH pain 5-10 Last administered on 12/17/16 01:20; Start 12/05/16 at 10:30; Stop 12/17/16 at 10:52; Status DC Albuterol/ Ipratropium 1 ampule 1 ampule Q4HR NEB NEB Last administered on 03:40; Start 12/06/16 at 08:00; Stop 12/10/16 at 08:00; Status DC Sodium Chloride (1/2 NS 1000 ml Inj) 1,000 ml @ 125 mls/hr Q8H IV Last administered on 12/07/16 21:33; Start 12/06/16 at 07:30; Stop 12/08/16 at 10:23 ; Status DC Rifampin 300 mg 300 mg Q12HR PO Last administered on 12/24/16 21:00; Start at 09:15; Stop 01/15/17 at 23:00 Cefazolin Sodium/ Dextrose (Ancef 2 Gm Premix) 50 ml @ 100 mls/hr Q8H IV Last administered on 12/25/16 12:15; Start 12/06/16 at 10:00; Stop 01/15/17 at 23:00 Levofloxacin (Levaquin) 750 mg Q24H PO Last administered on 12/12/16 08:58; Start 12/06/16 at 10:00; Stop 12/13/16 at 09:59; Status DC Insulin Detemir (Levemir Inj) 5 units Q12HR SQ Last administered on 12/13/16 21:29; Start 12/07/16 at 09:00; Stop 12/14/16 at 08:17; Status DC Methylnaltrexone [place] (Relistor Inj) 12 mg ONCE ONCE SQ Last administered on 12/07/16 16:58; Start 12/07/16 at 15:00; Stop 12/07/16 at 15:11; Status DC Metoprolol Tartrate (Lopressor Inj) 2.5 mg ONCE ONCE IV PUSH Last administered on 12/08/16 15:15; Start 12/08/16 at 15:00; Stop 12/08/16 at 15:01 ; Status DC Diltiazem HCl (Cardizem Inj) 10 mg ONCE ONCE IV ; Start 12/08/16 at 15:15; Stop 12/08/16 at 16:09; Status DC Metoprolol Tartrate (Lopressor) 50 mg Q12HR PO Last administered on 12/13/16 20:52; Start 12/08/16 at 21:00; Stop 12/14/16 at 09:12; Status DC Diltiazem HCl (Cardizem) 60 mg Q6H PO Last administered on 12/18/16 17:25; Start 12/09/16 at 05:00; Stop 12/18/16 at 18:39; Status DC Lorazepam (Ativan Inj) 1 mg Q4H PRN IV PUSH ANXIETY AND/OR AGITATION Last administered on 12/19/16 01:59; Start 12/09/16 at 15:15 Haloperidol Lactate (Haldol Inj) 2 mg Q8H PRN IM AGITATION AND/OR HALLUCINATION ; Start 12/10/16 at 17:00 Methylprednisolone Sodium Succinate (SoluMEDROL INJ) 20 mg Q12HR IV PUSH Last administered on 12/13/16 20:50; Start 12/11/16 at 21:00; Stop 12/13/16 at 22:00 ; Status DC Atorvastatin Calcium (Lipitor) 40 mg HS PO Last administered on 12/24/16 21:00 ; Start 12/12/16 at 21:00 Sodium Chloride (NS Flush) See Protocol DAILY IV FLUSH Last administered on 08:08; Start 12/13/16 at 09:00 Sodium Chloride (NS Flush) See Protocol UNSCH PRN IV FLUSH SEE PROTOCOL TABLE; Start 12/12/16 at 17:00 Heparin Sodium (Porcine) (Heparin Central Flush) See Protocol DAILY IV FLUSH Last administered on 12/25/16 08:08; Start 12/13/16 at 09:00 Heparin Sodium (Porcine) (Heparin Central Flush) See Protocol UNSCH PRN IV FLUSH SEE PROTOCOL TABLE; Start 12/12/16 at 17:00 Sodium Chloride UNSCH PRN IV FLUSH SEE PROTOCOL TABLE Last administered on 12/19 01:59; Start 12/12/16 at 17:00 Sodium Chloride (NS 250 ml Inj) 250 ml @ 15 mls/hr ONCE ONCE IV Last administered on 12/13/16 09:34; Start 12/13/16 at 08:15; Stop 12/14/16 at 00:54 ; Status DC Acetaminophen (Tylenol) 650 mg Q4H PRN PO SEE LABEL COMMENTS; Start 12/13/16 at 08:15; Stop 12/13/16 at 12:16; Status DC Diphenhydramine HCl (Benadryl) 25 mg Q4H PRN PO SEE LABEL COMMENTS; Start 12/13 at 08:15; Stop 12/13/16 at 12:16; Status Cancel Prednisone (Deltasone) 40 mg DAILY PO Last administered on 12/16/16 08:53; Start 12/14/16 at 09:00; Stop 12/16/16 at 09:28; Status DC Pantoprazole Sodium (Protonix) 40 mg Q12HR PO Last administered on 12/22/16 09: 01; Start 12/13/16 at 09:00; Stop 12/22/16 at 09:49; Status DC Diphenhydramine HCl (Benadryl) 25 mg Q4H PRN PO SEE LABEL COMMENTS; Start 12/13 at 17:15; Stop 12/13/16 at 21:16; Status DC Insulin Aspart (NovoLOG SUPPLEMENTAL SCALE) 1 ACHS SLIDING SCALE SQ Last administered on 12/24/16 21:13; Start 12/14/16 at 11:00 Insulin Detemir (Levemir Inj) 6 units Q12HR SQ Last administered on 12/25/16 08:07; Start 12/14/16 at 09:00 Metoprolol Tartrate (Lopressor) 75 mg Q12HR PO Last administered on 12/14/16 12:00; Start 12/14/16 at 12:00; Stop 12/14/16 at 16:10; Status DC Etomidate (Amidate Inj) 25 mg ONCE ONCE IVP ; Start 12/14/16 at 12:15; Stop at 18:48; Status DC Fentanyl Citrate (fentaNYL INJ) 200 mcg ONCE ONCE IV ; Start 12/14/16 at 12:15 ; Stop 12/14/16 at 18:48; Status DC Succinylcholine Chloride (Quelicin Inj) 150 mg ONCE ONCE IV ; Start 12/14/16 at 12:15; Stop 12/14/16 at 18:48; Status DC Metoprolol Tartrate (Lopressor) 100 mg Q12HR PO Last administered on 12/22/16 09:01; Start 12/14/16 at 21:00; Stop 12/22/16 at 12:48; Status DC Metoprolol Tartrate 25 mg 25 mg ONCE ONCE PO Last administered on 12/14/16 16 :55; Start 12/14/16 at 16:15; Stop 12/14/16 at 16:16; Status DC Iron Sucrose/ Sodium Chloride (Venofer Inj/NS Inj) 105 ml @ 105 mls/hr DAILY IV Last administered on 12/18/16 08:01; Start 12/16/16 at 09:00; Stop 12/18/16 at 09:59; Status DC Nitroglycerin (Nitrostat Sl) 0.4 mg Q5M PRN SL CHEST PAIN; Start 12/16/16 at 00: 15 Prednisone (Deltasone) 20 mg DAILY PO Last administered on 12/20/16 09:04; Start 12/17/16 at 09:00; Stop 12/20/16 at 10:01; Status DC Gadodiamide (Omniscan Pf Inj) 21 ml STK-MED ONCE IV Last administered on 15:41; Start 12/17/16 at 15:41; Stop 12/17/16 at 15:42; Status DC Oxycodone HCl (Roxicodone) 10 mg Q4H PRN PO PAIN 6-10 Last administered on 02:37; Start 12/17/16 at 19:00; Stop 12/21/16 at 08:51; Status DC Diltiazem HCl (Cardizem Inj) 20 mg ONCE PRN IV if HR 110-130 Last administered on 12/17/16 21:49; Start 12/17/16 at 21:30; Stop 12/17/16 at 22:30; Status DC Diltiazem HCl 20 mg 20 mg ONCE ONCE IVP ; Start 12/17/16 at 21:30; Stop 12/17/16 at 21:40; Status DC Diltiazem HCl/ Sodium Chloride (Cardizem Inj/NS Inj) 125 ml @ 0 mls/hr TITRATE IV Last administered on 12/17/16 22:12; Start 12/17/16 at 21:30; Stop 12/19/16 at 18:12; Status DC Lorazepam (Ativan) 0.5 mg DAILY PRN PO ANXIETY Last administered on 12/19/16 08 :29; Start 12/18/16 at 15:45 Diltiazem HCl (Cardizem) 90 mg Q6H PO Last administered on 12/25/16 12:14; Start 12/18/16 at 23:00 Diltiazem HCl (Cardizem) 30 mg NOW ONCE PO Last administered on 12/18/16 19:33 ; Start 12/18/16 at 19:30; Stop 12/18/16 at 19:31; Status DC Diltiazem HCl (Cardizem Inj) 10 mg NOW ONCE IV Last administered on 12/18/16 19:32; Start 12/18/16 at 19:30; Stop 12/18/16 at 19:31; Status DC Alteplase, Recombinant (Cathflo Activase Inj) 2 mg UNSCH X1 IV FLUSH ; Start at 19:45; Stop 12/18/16 at 23:00; Status DC Metoprolol Tartrate (Lopressor Inj) 5 mg ONCE ONCE IV PUSH Last administered on 12/19/16 05:40; Start 12/19/16 at 05:30; Stop 12/19/16 at 05:31; Status DC Digoxin (Lanoxin Inj) 0.5 mg NOW STAT IVS Last administered on 12/19/16 17:19 ; Start 12/19/16 at 16:51; Stop 12/19/16 at 17:04; Status DC Digoxin (Lanoxin Inj) 0.25 mg Q6H IVS Last administered on 12/20/16 03:54; Start 12/19/16 at 23:00; Stop 12/20/16 at 05:01; Status DC Digoxin (Lanoxin) 0.125 mg DAILY PO Last administered on 12/21/16 08:29; Start 12/20/16 at 09:00; Stop 12/21/16 at 11:59; Status DC Furosemide (Lasix Inj) 20 mg ONCE ONCE IV PUSH Last administered on 12/19/16 18:12; Start 12/19/16 at 17:45; Stop 12/19/16 at 17:46; Status DC Potassium Bicarb/ Potassium Chloride 25 meq 25 meq ONCE ONCE PO Last administered on 12/19/16 18:12; Start 12/19/16 at 17:45; Stop 12/19/16 at 17:46; Status DC Diltiazem HCl/ Sodium Chloride (Cardizem Inj/NS Inj) 125 ml @ 0 mls/hr TITRATE IV Last administered on 12/25/16 09:47; Start 12/19/16 at 18:15 Diltiazem HCl (Cardizem Inj) 18 mg NOW ONCE IV Last administered on 12/19/16 19:29; Start 12/19/16 at 18:15; Stop 12/19/16 at 18:16; Status DC Apixaban (Eliquis) 5 mg BID PO ; Start 12/20/16 at 10:00; Stop 12/20/16 at 10:00; Status DC Apixaban (Eliquis) 5 mg BID PO Last administered on 12/21/16 21:02; Start at 10:00; Stop 12/22/16 at 09:49; Status DC Diltiazem HCl (Cardizem Inj) 10 mg ONCE ONCE IV ; Start 12/20/16 at 09:30; Stop 12/20/16 at 09:31; Status DC Prednisone (Deltasone) 10 mg DAILY PO Last administered on 12/25/16 08:07; Start 12/21/16 at 09:00 Atropine Sulfate (Atropine Inj) 1 mg STK-MED ONCE .ROUTE ; Start 12/20/16 at 12: 45; Stop 12/20/16 at 12:46; Status DC Epinephrine HCl (EPINEPHrine (1:10,000) INJ) 1 mg STK-MED ONCE .ROUTE ; Start at 12:45; Stop 12/20/16 at 12:46; Status DC Acetaminophen (Tylenol) 650 mg ONCE ONCE PO Last administered on 12/20/16 18: 39; Start 12/20/16 at 18:45; Stop 12/20/16 at 18:46; Status DC Diphenhydramine HCl (Benadryl) 25 mg ONCE ONCE PO Last administered on 18:39; Start 12/20/16 at 18:45; Stop 12/20/16 at 18:46; Status DC Calcium Carbonate (Tums Chew) 500 mg ONCE ONCE CHEW Last administered on 00:45; Start 12/21/16 at 00:45; Stop 12/21/16 at 00:46; Status DC Calcium Carbonate (Tums Chew) 500 mg ONCE ONCE CHEW Last administered on 04:52; Start 12/21/16 at 05:00; Stop 12/21/16 at 05:01; Status DC Oxycodone HCl (Roxicodone) 15 mg Q4H PRN PO PAIN 6-10 Last administered on 23:56; Start 12/21/16 at 11:00 Digoxin (Lanoxin Inj) 0.5 mg NOW STAT IVS Last administered on 12/21/16 12:41 ; Start 12/21/16 at 11:49; Stop 12/21/16 at 11:50; Status DC Digoxin (Lanoxin Inj) 0.25 mg Q6H IVS Last administered on 12/21/16 17:19; Start 12/21/16 at 18:00; Stop 12/22/16 at 00:01; Status DC Digoxin (Lanoxin) 0.25 mg DAILY PO Last administered on 12/25/16 08:06; Start 12/22/16 at 09:00 Calcium Carbonate (Tums Chew) 500 mg ONCE ONCE CHEW ; Start 12/22/16 at 01:00; Stop 12/22/16 at 01:01; Status DC Heparin Sodium (Porcine) (Heparin Inj) 5,000 units UNSCH PRN IV APTT LESS THAN 25; Start 12/22/16 at 15:15; Stop 12/23/16 at 00:05; Status DC Heparin Sodium (Porcine) 2500 units 2,500 units UNSCH PRN IV APTT 25 TO 39; Start 12/22/16 at 15:15; Stop 12/23/16 at 00:05; Status DC Heparin Sodium/ Dextrose (Heparin-D5W Inj) 250 ml @ 0 mls/hr TITRATE IV ; Start 12/22/16 at 09:15; Stop 12/22/16 at 09:42; Status DC Sucralfate (Carafate Liq) 1 gm ACHS PO Last administered on 12/25/16 12:14; Start 12/22/16 at 11:00 Metoprolol Tartrate (Lopressor Inj) 5 mg Q1HR PRN IV PUSH RAPID HEART RATE Last administered on 12/24/16 22:59; Start 12/22/16 at 09:45 Pantoprazole Sodium (Protonix Inj) 40 mg Q12H IV PUSH Last administered on 12/25 12:16; Start 12/22/16 at 10:00 Aspirin 81 mg 81 mg DAILY PO Last administered on 12/25/16 08:06; Start at 09:00 Heparin Sodium/ Dextrose (Heparin-D5W Inj) 250 ml @ 0 mls/hr TITRATE IV Last administered on 12/22/16 12:43; Start 12/22/16 at 10:00; Stop 12/23/16 at 00:05; Status DC Metoprolol Tartrate (Lopressor) 25 mg Q6HR PO Last administered on 12/25/16 12 :14; Start 12/22/16 at 13:00 Furosemide (Lasix Inj) 20 mg ONCE ONCE IV PUSH Last administered on 12/22/16 12:44; Start 12/22/16 at 13:00; Stop 12/22/16 at 13:01; Status DC Furosemide (Lasix Inj) 20 mg ONCE IV PUSH Last administered on 12/23/16 02:31; Start 12/22/16 at 23:00; Stop 12/23/16 at 06:00; Status DC Morphine Sulfate (Morphine Inj) 2 mg Q4H PRN IV PUSH pain >5 Last administered on 12/25/16 12:27; Start 12/23/16 at 00:00 Diphenhydramine HCl (Benadryl) 25 mg ONCE ONCE PO Last administered on 04:04; Start 12/23/16 at 23:45; Stop 12/23/16 at 23:46; Status DC Acetaminophen (Tylenol) 650 mg ONCE ONCE PO Last administered on 12/24/16 04: 04; Start 12/23/16 at 23:45; Stop 12/23/16 at 23:46; Status DC Furosemide 20 mg 20 mg DAILY IV PUSH Last administered on 12/25/16 08:08; Start 12/24/16 at 09:15 Lactated Ringer's 1,000 ml @ 30 mls/hr Q24H PRN IV SEE LABEL COMMENTS; Start at 22:00; Stop 12/27/16 at 21:59 Sodium Chloride (NS 500 ml Inj) 500 ml @ 30 mls/hr [id number] PRN IV SEE LABEL COMMENTS; Start 12/24/16 at 22:00; Stop 12/27/16 at 21:59 Metoprolol Tartrate (Lopressor) 25 mg SHIPPING WEIGHER PRN PO SEE LABEL COMMENTS; Start 12/24/16 at 22:00; Stop 12/27/16 at 21:59 Povidone Iodine (Betadine 5% Antisepsis Kit) 1 applic SHIPPING WEIGHER PRN EACH NARE SEE LABEL COMMENTS; Start 12/24/16 at 22:00; Stop 12/27/16 at 21:59 Chlorhexidine Gluconate (Chlorhexidine 2% Cloth) 3 pack SHIPPING WEIGHER PRN TOPICAL SEE LABEL COMMENTS; Start 12/24/16 at 22:00; Stop 12/27/16 at 21:59 Insulin Human Regular (NovoLIN R INJ) See Protocol Table ... SHIPPING WEIGHER PRN SQ SEE PROTOCOL TABLE; Start 12/24/16 at 22:00; Stop 12/27/16 at 21:59 A/P Problem List: (1) Intractable abdominal pain ICD Code: R10.9 Status: Acute (2) Esophageal carcinoma ICD Code: C15.9 Status: Acute (3) SCC (squamous cell carcinoma) ICD Code: C44.92 Status: Acute (4) Hypokalemia ICD Code: E87.6 Status: Acute (5) Lactic acidosis ICD Code: E87.2 Status: Acute (6) Renal insufficiency ICD Code: N28.9 Status: Acute (7) Elevated troponin ICD Code: R74.8 Status: Acute (8) DM (diabetes mellitus) ICD Code: E11.9 Status: Acute (9) Tobacco abuse ICD Code: Z72.0 Status: Acute (10) NSTEMI (non-ST elevated myocardial infarction) ICD Code: I21.4 Status: Acute (11) Bacteremia due to Gram-positive bacteria ICD Code: R78.81 Status: Acute (12) Encephalopathy, metabolic ICD Code: G93.41 Status: Acute Assessment and Plan Hemoptysis, improved. -GI aware and following. -Patient agreed to EGD with esophageal stent and endoscopic ultrasound this morning. -Heparin drip DC'ed by Dr. Krause. -Continue monitor H&H q6hrs. Septic shock, resolved -Secondary to MSSA bacteremia. MSSA bacteremia -Xgyrer-h-Tbmg infection - s/p removal of Hnuxgs-p-Bmsg by GS. Dressing changes per GS. Appreciate assistance. - Catheter tip culture blood culture and wound culture also positive for MSSA - Continue abx per ID, on IV Ancef, po Rifampin x 6 weeks from port removal and (completed course of Levaquin PO on 12/13). LFTs 12/15/16 wnl, continue antibiotics/Ancef until 01/15/17. -Per infectious disease once patient is ready for discharged to notify her so order can be placed. Acute metabolic encephalopathy- resolved -Encephalopathy most likely secondary to severe sepsis -Continue Thiamine, MVI, folic acid. Acute hypoxemic respiratory failure secondary to COPD exacerbation, resolved. - Emergently intubated and placed on mechanical ventilation 12/02/16, extubated successfully 12/03/16 - Continue with oxygen keep sat >92% - continue neb treatment - s/p IV Solu-Medrol , continue to taper down prednisone. Lower extremity edema, improving. -Secondary to being volume overloaded. -Continue with IV Lasix. NSTEMI/atrial fibrillation with RVR - difficult to control. still on cardizem gtt. - s/p PCI to LCx by Dr. Krause on 11/30/16 - Continue ASA/Plavix/metoprolol,cardizem and statin. - Anticoagulation contraindicated secondary to hematemesis -continue to monitor and adjust the regimen as needed. - 2-D echo no veg, EF 50-55% -Dealt with patient's nurse to call [employer] in regards to rate still not being controlled. 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 Patient will have a EUS. - on Protonix - Oncology following. He will need weekly Erbitux and XRT outpatient. - Status post surgical resection for L parotid SCC. plan for chemo and radiation per oncology. Anemia -Hb now stable at 9, s/p 2 unit PRBC. Per heme/onc recs, transfuse if Hb<8. Monitor H&H. Liver cirrhosis -stable -Follow-up as outpatient. Diabetes - SSI ( medium scale) and Levemir 6 units BID for glycemic control. Monitor BS . -blood sugar levels expected to improve as steroid is being tapered off. -PROPH: - Bilateral lower extremity SCDs. Discharge Planning Poor prognosis. Palliative care consulted. Makenna Schilling MD Dec 25, 2016 14:34
[2016-12-25] MEDS ORDERED: PROPOFOL 200 MG/20 ML AMP IV ONE (18:30)
[2016-12-25] MEDS ORDERED: LACTATED RINGER'S 1,000 ML BAG IV ONE (18:32)
[2016-12-25] MEDS ORDERED: SODIUM CHLORID 0.9% 500 ML BAG IV ONE (18:32)
[2016-12-25] MEDS ORDERED: PHENYLEPH/NS 1000 MCG/10 ML SYR IV ONE (18:32)
[2016-12-25] MEDS ORDERED: PROPOFOL 1000 MG/100 ML INJ 100 ML ONE (19:27)
--- NOTE | 2016-12-25 20:05 | PD.PROCEDR ---
GI Procedure REFERRING PHYSICIAN Dr. Schilling PROCEDURE PERFORMED EUS followed by an EGD with esophageal stent placement INDICATION FOR PROCEDURE Esophageal cancer PROCEDURE: The procedure, risks and benefits were discussed with Mr. La and informed consent was obtained. Anesthesia intubated the patient and sedated him with Diprivan. He was placed in the left lateral decubitus position. EUS followed by EGD: The Pentax videoscope was introduced through the oropharynx and advanced to the second portion of the duodenum under direct visualization. Retroflexion was performed in the stomach. FINDINGS: EUS findings reveal a long esophageal cancer that invades the adventitia this would be staged at T3 no local lymphadenopathy N0 MX The esophagus there was an irregular mass extending from 30 cm from the incisors to 40 cm from the incisors involving about one third of the esophageal wall very irregular and friable with lots of oozing of blood as it is touched and almost circumferential at the lower end. A fully covered esophageal stent was placed this was size 23, 103 deployment was optimal The stomach was unremarkable The duodenum was unremarkable Initially there was a lot of food and debris in the esophagus and so we had to clean out the esophagus this was a lengthy process during which there was quite a bit of bleeding noted ESTIMATED BLOOD LOSS: Possibly 70-100 cc SPECIMENS REMOVED: None COMPLICATIONS: None IMPRESSION: Esophageal cancer T3 N0 MX PLAN: Patient to remain intubated overnight and if all is stable tomorrow he may be extubated from a GI perspective Patient will need to be on a low residue diet preferably pured Ortiz Tejeda MD Dec 25, 2016 20:05
[2016-12-25] MEDS ORDERED: MIDAZOLAM HCL 2 MG/2 ML VIAL ONE (20:09)
[2016-12-25] MEDS ORDERED: MORPHINE SULFATE 4 MG/ML INJ ONE (20:10)
[2016-12-25] MEDS ORDERED: PROPOFOL 1000 MG/100 ML IV SCH (20:15)
[2016-12-25] MEDS ORDERED: PHENYLEPHRINE HCL 10 MG/ML VIAL ONE (20:25)
[2016-12-25] MEDS ORDERED: PHENYLEPH/NS 1000 MCG/10 ML SYR ONE (20:28)
[2016-12-25] MEDS ORDERED: DO NOT ADM ANY ANTICOAGULANT DRUGS PRN (20:30)
[2016-12-25] MEDS ORDERED: fentaNYL DRIP 250 ML ONE (20:34)
[2016-12-25 20:36] LABS: BLOOD GAS BASE EXCESS 2.8 mmol/L (-2-2); BLOOD GAS CARBOXYHEMOGLOBIN 2.5 % (0-4); BLOOD GAS HCO3 27 mmol/L (22-26); BLOOD GAS METHEMOGLOBIN 0.9 % (0-2); BLOOD GAS O2 HGB SATURATION 96 % (90-100); BLOOD GAS OXYGEN CONTENT 12.2 Vol % (12.0-20.0); BLOOD GAS PCO2 40 mmHg (38-42); BLOOD GAS PO2 144 mmHg (61-120); BLOOD GAS TOTAL HGB 8.8 G/DL (12.0-16.0); CRITICAL VALUE NO; FIO2 60 %; OXYGEN DEVICE VENTILATOR; TEMP CORR TO 98.6
[2016-12-25 20:37] LABS: DRAW SITE ART LINE; STAT YES; VENT SETTINGS A/C12/600/+5PEEP
--- NOTE | 2016-12-25 20:43 | RADRPT ---
EXAM DATE/TIME: 12/25/2016 20:28 [facility] COMPARISON: CHEST SINGLE AP, December 12, 2016, 17:04. INDICATIONS : Evaluate ET tube placement MEDICAL HISTORY : Carcinoma, esophageal. SURGICAL HISTORY : Appendectomy. ENCOUNTER: Initial ACUITY: 1 week PAIN SCORE: Non-responsive. LOCATION: chest FINDINGS: ET tube in good position with cardiomegaly and significant congestive failure. PICC line is evident. CONCLUSION: ET in good position; increasing congestive failure. Everett Pollock MD FACR on December 25, 2016 at 20:40 Board Certified Radiologist. This report was verified electronically.
[2016-12-25] MEDS ORDERED: TERBUTALINE INJ 1 MG/ML AMP SQ PRN (20:45)
[2016-12-25 20:54] LABS: AUTOMATED NEUTROPHIL # 6.4 TH/MM3 (1.8-7.7); BASOPHIL % 0.3 % (0.0-2.0); EOSINOPHIL % 0.4 % (0.0-4.0); HEMATOCRIT 27.6 % (39.0-51.0); HEMO FLAGS DIFF FINAL; LYMPH % 10.1 % (9.0-44.0); LYMPHOCYTE # 0.8 TH/MM3 (1.0-4.8); MEAN CELL VOLUME 87.8 FL (80.0-100.0); MEAN CORPUSCULAR HEMOGLOBIN 28.8 PG (27.0-34.0); MEAN CORPUSCULAR HGB CONC 32.8 % (32.0-36.0); MONO % 13.2 % (0.0-8.0); PLATELET COUNT 198 TH/MM3 (150-450); RED BLOOD COUNT 3.15 MIL/MM3 (4.50-5.90); RED CELL DISTRIBUTION WIDTH 20.6 % (11.6-17.2); WHITE BLOOD COUNT 8.4 TH/MM3 (4.0-11.0)
[2016-12-25] MEDS ORDERED: MAGNESIUM OXIDE 400 MG TAB PO PRN (21:00)
[2016-12-25] MEDS ORDERED: MAGNESIUM SULFATE INJ 2 GM in SODIUM CHLORIDE 0.9% INJ 96 ML IV PRN (21:00)
[2016-12-25] MEDS ORDERED: POTASSIUM PHOSPHATE MONOBASIC 500 MG TAB PO/TUBE PRN (21:00)
[2016-12-25] MEDS ORDERED: DEXTROSE 10% INJ 1,000 ML IV SCH (21:00)
[2016-12-25] MEDS ORDERED: SODIUM PHOSPHATE INJ 30 MMOL in SODIUM CHLOR 0.9% 250 ML INJ 240 ML IV PRN (21:00)
[2016-12-25] MEDS ORDERED: POTASSIUM PHOSPHATE MONOBASIC 500 MG TAB PO PRN (21:00)
[2016-12-25] MEDS ORDERED: AMIODARONE INJ 900 MG in D5W 500 ML (EXCEL BAG) 482 ML IV SCH (21:00)
[2016-12-25] MEDS ORDERED: AMIODARONE INJ 150 MG in DEXTROSE 5% IN WATER 100ML INJ 97 ML IV ONE ×2 (21:00)
[2016-12-25] MEDS ORDERED: fentaNYL DRIP 250 ML IV SCH (21:00)
[2016-12-25] MEDS ORDERED: POTASSIUM PHOSPHATE INJ 30 MMOL in SODIUM CHLOR 0.9% 250 ML INJ 250 ML IV PRN (21:00)
[2016-12-25] MEDS ORDERED: POTASSIUM CHLOR 20 MEQ PREMIX 100 ML IV ONE (21:00)
[2016-12-25] MEDS ORDERED: DEXTROSE 50% IN WATER 50 ML VIAL(D50) IV PUSH PRN (21:00)
[2016-12-25] MEDS: MAGNESIUM SULFATE 1 GM PREMIX 100 ML IV SCH ×2 (21:00→22:00)
[2016-12-25] MEDS ORDERED: POTASSIUM CHLOR 20 MEQ PREMIX 100 ML IV PRN (21:00)
[2016-12-25] MEDS ORDERED: POTASSIUM CHLOR 40 MEQ PREMIX 100 ML IV PRN (21:00)
[2016-12-25] MEDS ORDERED: MAGNESIUM SULFATE INJ 4 GM in SODIUM CHLORIDE 0.9% INJ 92 ML IV PRN (21:00)
[2016-12-25] MEDS ORDERED: SODIUM CHLOR 0.9% 250 ML INJ 250 ML ONE (21:04)
[2016-12-25] MEDS ORDERED: AMIODARONE HCL 150 MG/3 ML VIAL ONE (21:05)
--- NOTE | 2016-12-25 21:08 | RADRPT ---
EXAM DATE/TIME: 12/25/2016 19:33 [facility] COMPARISON: BARIUM SWALLOW, December 20, 2016, 13:15. CHEST SINGLE AP, December 25, 2016, 20:28. INDICATIONS : Obstruction; esophageal stent placement. FLUORO TIME: 2.0 minutes IMAGE COUNT: 1 CONTRAST: Instilled by Ordering Physician MEDICAL HISTORY : Diabetes mellitus type 2. Squamous cell carcinoma, esophageal carcinoma. SURGICAL HISTORY : Coronary artery stent. Appendectomy. Port removed. ENCOUNTER: Subsequent ACUITY: 2 months PAIN SCORE: Non-responsive. LOCATION: Abdomen. FINDINGS: Single fluoroscopic spot film was obtained with marker apparently over the GE junction. CONCLUSION: Spot film as above. Everett Pollock MD FACR on December 25, 2016 at 21:05 Board Certified Radiologist. This report was verified electronically.
[2016-12-25 21:20] LABS: ANION GAP 6 MEQ/L (5-15); AST (GOT) 40 U/L (15-37); BICARBONATE 29.6 MEQ/L (21.0-32.0); BLOOD UREA NITROGEN 13 MG/DL (7-18); CHLORIDE 95 MEQ/L (98-107); GLOMERULAR FILTRATION RATE 135 ML/MIN (>89); SODIUM (NA) 131 MEQ/L (136-145)
[2016-12-25 21:21] LABS: ALT (GPT) 27 U/L (12-78)
[2016-12-25 21:24] LABS: ALKALINE PHOSPHATASE 94 U/L (45-117); TOTAL BILIRUBIN ADULT 0.6 MG/DL (0.2-1.0)
[2016-12-25 21:38] LABS: APTT (PATIENT) 30.8 SEC (24.3-30.1); INTERNATIONAL NORMALIZED RATIO 1.2 RATIO; PROTHROMBIN TIME - PATIENT 13.7 SEC (9.8-11.6)
[2016-12-25] MEDS: AMIODARONE INJ 450 MG in D5W (EXCEL BAG) 241 ML IV SCH (22:23)
[2016-12-25] MEDS: PROPOFOL 1000 MG/100 ML INJ 100 ML IV SCH (22:24)
--- NOTE | 2016-12-25 23:23 | PD.CONS ---
[facility] Service Critical Care Medicine Consult Requested By Dr. Beltre Reason for Consult gi bleeding Primary Care Physician Landon Abad MD History of Present Illness This is a 61yM known to the manager banking service. 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 He was hypotensive, febrile up to 101 and received IV fluid resuscitation with improvement in his blood pressure. EKG showed ST-T wave changes, and troponin was elevated and peaked at 17.1. The patient has been evaluated by cardiology. For NSTEMI patient underwent PCI with bare metal stent to LCx by Dr. Krause on 11/30/16. The patient had a CT of the abdomen and pelvis on admission which showed marked soft tissue thickening in the distal esophagus concerning for esophageal cancer. The patient was also noted to have liver cirrhosis and mild splenomegaly. Patient has a history of alcohol intake but according to the girlfriend has not had alcoholic drinks for several months. CTA no evidence of pulmonary embolism or pneumonia. Critical care was consulted today for altered mentation, persistent fever, MSSA bacteremia and worsening sepsis. Apparently patient was agitated overnight requiring restraints. He also sustained a fall when he tried to climb out of the bed. CT of the head was negative except for a possible artifact left temporal region. An MRI which was done today came back negative. On my evaluation the ICU patient was very lethargic and tachypneic breathing approximately 35-40. ABG showed respiratory alkalosis. His altered mentation is most likely secondary to severe sepsis, alcohol withdrawal seems less likely. Blood cultures / growing MSSA, lactic acid 3,6. 12/25: Today underwent EGD with esophageal stent placement. significant bleeding from distal esophagus. GI and anesthesia felt patient should remain intubated for airway protection. In addition, patient persistently hypotensive requiring vasopressors, phenylephrine at 100 mcg/min, and in a flutter RVR on diltiazem drip. On my evaluation, patient was becoming more unstable. Adenosine 6mg iv x 1 was given which confirmed the rhythm as a flutter, but did not convert patient. give that patient was not anticoagulated, risk/benefit of electrical cardioversion at that time was in favor of conservative measures. patient bolused with amiodarone and placed on amiodarone drip, along with aggressive electrolyte replacement. Of note, patient also has new documented diagnosis of dynamic LVOT obstruction due to his LV hypertrophy and hyperdynamic cardiac function. Critical care medicine re-consulted to evaluate and manage his respiratory failure and cardiac dysrhythmias. Review of Systems ROS Limitations: Clinical Condition, Intubated Past Family Social History Allergies: Coded Allergies: Penicillin (Verified Allergy, Mild, Hives, 11/12/16) Past Medical History Squamous cell carcinoma of the parotid gland Esophageal mass NSTEMI this admission s/p cath with PCI Coronary artery disease Dyslipidemia Diabetes Hypertension Past Surgical History Appendectomy Liver Biopsy Port Placement Surgical resection for left parotid squamous cell cancer Reported Medications B-12 (Cyanocobalamin) 1,000 Mcg Subl 1,000 Mcg PO DAILY Vitamin D3 (Cholecalciferol) 1,000 Unit Tab 1,000 Units PO DAILY Tramadol (Tramadol HCl) 50 Mg Tab 50 Mg PO Q8H PRN Omeprazole 20 Mg Tab 20 Mg PO DAILY Levothyroxine (Levothyroxine Sodium) 50 Mcg Tab 50 Mcg PO DAILY Atorvastatin (Atorvastatin Calcium) 40 Mg Tab 40 Mg PO HS Amlodipine (Amlodipine Besylate) 10 Mg Tab 10 Mg PO DAILY Losartan (Losartan Potassium) 100 Mg Tab 100 Mg PO DAILY Metformin (Metformin HCl) 1,000 Mg Tab 1,000 Mg PO BIDPC With meals Glipizide 10 Mg Tab 20 Mg PO BIDAC Lantus Inj (Insulin Glargine) 1,000 Unit/10 Ml Vial 40 Units SQ HS Active Ordered Medications See MAR Family History Unable to obtain due to clinical condition. Social History One pack a day smoker, apparently quit a week Consumes a few alcoholic beverages a few times a week Physical Exam Vital Signs Vital Signs Date Time Temp Pulse Resp B/P Pulse Ox O2 Delivery O2 Flow Rate FiO2 12/25/16 21:25 100 100 12/25/16 21:20 100 40 12/25/16 21:00 139 112/58 12/25/16 21:00 131 15 117/63 100 Mechanical Ventilator 60 12/25/16 20:45 141 108/58 12/25/16 20:45 141 13 147/75 100 Mechanical Ventilator 60 12/25/16 20:30 141 13 142/69 100 Mechanical Ventilator 60 12/25/16 20:15 143 18 96/53 100 Mechanical Ventilator 60 12/25/16 20:15 143 99/53 12/25/16 20:10 100 60 12/25/16 20:00 143 21 107/56 100 Mechanical Ventilator 60 12/25/16 20:00 143 107/63 12/25/16 19:55 100 60 12/25/16 19:45 98.7 141 13 131/63 100 Mechanical Ventilator 60 12/25/16 19:45 141 131/67 12/25/16 17:56 145 12/25/16 17:17 93 21 12/25/16 16:00 130 22 131/75 93 12/25/16 16:00 122 12/25/16 15:05 95 Room Air 12/25/16 15:05 99.3 113 18 120/79 95 12/25/16 15:00 131 12/25/16 14:01 132 12/25/16 13:15 94 12/25/16 13:00 146 12/25/16 12:30 97 Room Air 12/25/16 12:30 98.6 146 18 129/78 97 12/25/16 12:00 144 12/25/16 11:00 130 12/25/16 10:00 132 12/25/16 09:29 98.8 133 18 120/70 96 12/25/16 09:29 96 Room Air 12/25/16 09:00 116 12/25/16 08:00 130 12/25/16 07:01 129 12/25/16 06:00 97 12/25/16 05:00 130 12/25/16 04:00 116 12/25/16 03:00 144 12/25/16 03:00 98.7 128 18 126/77 95 12/25/16 03:00 95 Room Air 12/25/16 02:00 115 12/25/16 01:00 105 12/25/16 00:00 110 Physical Exam GENERAL: Patient is 61 yo lying in bed, intubated, sedated, critically ill. SKIN: Warm and dry. HEAD: Normocephalic. EYES: No scleral icterus. No injection or drainage. MOUTH: oropharynx with small amount of bright red blood NECK: trachea midline. No JVD. ett. CARDIOVASCULAR: tachycardic rate, irregularly irregular rhythm. aflutter by EKG. on phenylephrine at 100 mcg/min. RESPIRATORY: Breath sounds equal bilaterally. No accessory muscle use. GASTROINTESTINAL: Abdomen soft, non-tender, nondistended. MUSCULOSKELETAL: No cyanosis, or edema. Neuro: RASS -2. intubated and sedated. w/d x 4. does not follow commands. Laboratory Laboratory Tests Test 12/25/16 12/25/16 12/25/16 05:05 20:21 20:37 White Blood Count 6.2 8.4 Red Blood Count 3.13 3.15 Hemoglobin 9.0 9.1 Hematocrit 27.6 27.6 Mean Corpuscular Volume 88.2 87.8 Mean Corpuscular Hemoglobin 28.6 28.8 Mean Corpuscular Hemoglobin 32.5 32.8 Concent Red Cell Distribution Width 20.8 20.6 Platelet Count 166 198 Mean Platelet Volume 7.3 7.4 Sodium Level 132 131 Potassium Level 3.9 4.0 Chloride Level 94 95 Carbon Dioxide Level 30.4 29.6 Anion Gap 8 6 Blood Urea Nitrogen 14 13 Creatinine 0.63 0.61 Estimat Glomerular Filtration 130 135 Rate Random Glucose 141 162 Calcium Level 8.0 7.5 Blood Gas Puncture Site ART LINE Blood Gas Patient Temperature 98.6 Blood Gas HCO3 27 Blood Gas Base Excess 2.8 Blood Gas Oxygen Saturation 96 Arterial Blood pH 7.44 Arterial Blood Partial 40 Pressure CO2 Arterial Blood Partial 144 Pressure O2 Arterial Blood Oxygen Content 12.2 Arterial Blood 2.5 Carboxyhemoglobin Arterial Blood Methemoglobin 0.9 Blood Gas Hemoglobin 8.8 Oxygen Delivery Device VENTILATOR Blood Gas Ventilator Setting A/C12/600/+5PEEP Blood Gas Inspired Oxygen 60 Neutrophils (%) (Auto) 76.0 Lymphocytes (%) (Auto) 10.1 Monocytes (%) (Auto) 13.2 Eosinophils (%) (Auto) 0.4 Basophils (%) (Auto) 0.3 Neutrophils # (Auto) 6.4 Lymphocytes # (Auto) 0.8 Monocytes # (Auto) 1.1 Eosinophils # (Auto) 0.0 Basophils # (Auto) 0.0 CBC Comment DIFF FINAL Differential Comment Prothrombin Time 13.7 Prothromb Time International 1.2 Ratio Activated Partial 30.8 Thromboplast Time Total Bilirubin 0.6 Aspartate Amino Transf 40 (AST/SGOT) Alanine Aminotransferase 27 (ALT/SGPT) Alkaline Phosphatase 94 Total Protein 5.7 Albumin 1.6 Date/Time Procedure Status Source Growth 12/24/16 12:42 Stool Occult Blood (DAINA) - Final Complete Stool Stool HEMOCCULT NEGATIVE Result Diagram: 12/25/16203612/25/162036 Imaging Last Impressions GI Procedure 12/25/16 0000 Signed Impressions: Service Date/Time: December 19:33 - CONCLUSION: Spot film as above. Everett Pollock MD FACR Chest X-Ray 12/25/16 0000 Signed Impressions: Service Date/Time: December 20:28 - CONCLUSION: ET in good position; increasing congestive failure. Everett Pollock MD FACR Barium Swallow X-Ray 12/20/16 0000 Signed Impressions: Service Date/Time: Tuesday, December 20, 2016 13:15 - CONCLUSION: 1. The distal half of the esophagus demonstrates irregular luminal narrowing consistent with the patient's history of esophageal adenocarcinoma. 2. Mild dilatation of the esophagus immediately proximal to the esophageal mass. However, there are no signs of obstruction. 3. Small hiatal hernia. Washington Marroquin MD Abdomen MRI 12/17/16 0000 Signed Impressions: Service Date/Time: Saturday, December 17, 2016 13:59 - CONCLUSION: 1. No acute finding is identified to explain the abdominal pain. 2. Stable thickening of the distal esophagus. There is a single mildly enlarged left gastric lymph node measuring 12 x 10 mm. 3. Moderate sized bilateral pleural effusions, left larger than right, with associated compressive atelectasis. Washington Marroquin MD Head CT 12/01/16 0000 Signed Impressions: Service Date/Time: Thursday, December 01, 2016 07:59 - CONCLUSION: 1. Questionable area of low attenuation left temporal lobe could be artifact versus less likely infarct. MRI may be warranted based on clinical history. 2. No midline shift or mass effect. 3. No intraparenchymal hemorrhage. Jagjit Tapia MD Brain MRI 12/01/16 0000 Signed Impressions: Service Date/Time: Thursday, December 01, 2016 12:07 - CONCLUSION: Normal examination. Barrett Rodriguez MD Abdomen X-Ray 12/01/16 0000 Signed Impressions: Service Date/Time: Thursday, December 01, 2016 16:48 - CONCLUSION: No evidence of obstruction. Feeding tube tip in the distal stomach. Barrett Rodriguez MD Abdomen/Pelvis CT 11/29/16 2356 Signed Impressions: Service Date/Time: Wednesday, November 30, 2016 01:35 - CONCLUSION: 1. Markedly abnormal appearance of the distal esophagus consistent with the history of esophageal carcinoma. 2. Atherosclerotic calcifications of the aorta and iliac vessels. 3. Cirrhotic appearance to the liver with a mildly nodular contour present. Erik Simon MD CT Angiography 11/29/16 [id number] Signed Impressions: Service Date/Time: Wednesday, November 30, 2016 01:35 - CONCLUSION: 1. No evidence for pulmonary embolism or pneumonia. 2. Abnormal appearance of the esophagus with and soft tissue consistent with the history of carcinoma. Erik Simon MD Assessment and Plan Assessment and Plan Assessment: 61yM with esophageal cancer s/p stent placement with esophageal bleeding, airway compromise, and atrial flutter with rapid ventricular response , complicated by dynamic LVOT obstruction, hypotension requiring vasopressors. critically ill at this time. Acute airway compromise with hematemesis -- vent bundle, hob at 30 degrees, nebs -- wean fio2 for spo2 > 90% -- no sbt today given ongoing hematemesis Atrial flutter with Rapid Ventricular Response -- amio bolus and drip -- replace K and Mg -- continue cardizem drip -- not an anticoagulation candidate currently given active hematemesis Dynamic LVOT obstruction -- secondary to ventricular hypertrophy and hyperdynamic cardiac function -- goal to slow HR and maintain afterload -- continue phenylephrine for goal MAP > 65 mmHg Anemia secondary to acute blood loss -- does not meet transfusion triggers at this time -- serial hgb. This patient remains critically ill with one or more organ systems which are or may become a threat to life. I have spent in excess of 47 minutes discontinuously in the care and management of this patient. This time is exclusive of procedures, and includes, but is not limited to, evaluation of the patient, review of the medical record, discussions with family, consultants, nursing staff, or respiratory therapy, and documentation in the medical record. Last Busch MD Dec 25, 2016 23:23
[2016-12-26] VITALS (19 sets, daily range): BP systolic 103–126; BP diastolic 48–59; PULSE 92–136; RESP 12–21; TEMP 97.8–99.6; O2SAT 95–100
[2016-12-26] MEDS: RESP: ALBUTEROL 2.5 MG/IPRATROPIUM 0.5 MG NEB (SCH) INH ×4 (01:13→19:50)
[2016-12-26 01:56] LABS: HEMATOCRIT 26.4 % (39.0-51.0); REVIEW FLAG FINAL
[2016-12-26] MEDS: ceFAZolin 2 GM PREMIX 50 ML IV SCH ×3 (02:13→17:15)
[2016-12-26] MEDS: PHENYLEPHRINE 40 MG/D5W 496 ML ADMIX IV SCH ×6 (02:13→14:01)
[2016-12-26] MEDS: DILTIAZEM 125 MG/NS 100 ML IV SCH ×6 (02:14→14:01)
[2016-12-26] MEDS: PROPOFOL 1000 MG/100 ML INJ 100 ML IV SCH ×2 (02:14→06:08)
--- NOTE | 2016-12-26 04:15 | RADRPT ---
EXAM DATE/TIME: 12/26/2016 03:45 [facility] COMPARISON: CHEST SINGLE AP, December 25, 2016, 20:28. INDICATIONS : Atelectasis MEDICAL HISTORY : Carcinoma, esophageal. SURGICAL HISTORY : Appendectomy. ENCOUNTER: Subsequent ACUITY: 1 week PAIN SCORE: Non-responsive. LOCATION: Bilateral chest FINDINGS: Decreasing failure and pleural effusions, now mild/small. Moderate cardiomegaly not significantly umer nged. No pneumothorax. Endotracheal tube tip is approximately 4 cm above the elizabeth. CONCLUSION: Improving pulmonary edema and effusions, now mild/small. Unchanged moderate cardiomegaly. Washington Beasley MD on December 26, 2016 at 4:13 Board Certified Radiologist. This report was verified electronically.
[2016-12-26] MEDS ORDERED: ATROPINE SULFATE 1 MG/10 ML SYRINGE IV ONE (05:00)
[2016-12-26 05:36] LABS: HEMATOCRIT 27.5 % (39.0-51.0); MEAN CELL VOLUME 87.8 FL (80.0-100.0); MEAN CORPUSCULAR HEMOGLOBIN 28.9 PG (27.0-34.0); PLATELET COUNT 232 TH/MM3 (150-450); RED BLOOD COUNT 3.14 MIL/MM3 (4.50-5.90); RED CELL DISTRIBUTION WIDTH 20.7 % (11.6-17.2); REVIEW FLAG FINAL; WHITE BLOOD COUNT 10.5 TH/MM3 (4.0-11.0)
[2016-12-26] MEDS: METOPROLOL TARTRATE 25 MG TAB PO SCH ×3 (05:45→17:15)
[2016-12-26 05:52] LABS: BICARBONATE 28.2 MEQ/L (21.0-32.0); POTASSIUM 3.7 MEQ/L (3.5-5.1)
[2016-12-26] MEDS: AMIODARONE INJ 450 MG in D5W (EXCEL BAG) 241 ML IV SCH (06:08)
[2016-12-26] MEDS: INSULIN NovoLIN REGULAR SUPPLEMENTAL SCALE SQ SCH ×4 (06:10→17:25)
[2016-12-26] MEDS: SUCRALFATE 1 GM/10 ML CUP PO SCH ×4 (07:00→21:50)
[2016-12-26] MEDS: CHLORHEXIDINE 0.12% (ORAL KIT) 15 ML CUP MT SCH ×2 (08:00→20:00)
[2016-12-26] MEDS: SODIUM CHLORIDE 0.9% FLUSH 10 ML FLUSH IV FLUSH SCH ×3 (08:19→21:00)
[2016-12-26] MEDS: FUROSEMIDE 20 MG/2 ML VIAL IV PUSH SCH (08:29)
[2016-12-26] MEDS: RIFAMPIN 150 MG CAP PO SCH ×2 (08:53→21:50)
[2016-12-26] MEDS: MULTIVITAMIN TAB PO SCH (08:53)
[2016-12-26] MEDS: predniSONE 10 MG TAB PO SCH (08:53)
[2016-12-26] MEDS: THIAMINE HCL 100 MG TAB PO SCH (09:04)
[2016-12-26] MEDS: DOCUSATE SODIUM 50 MG/SENNA 8.6 MG TAB PO SCH ×2 (09:04→21:50)
[2016-12-26] MEDS: POLYETHYLENE GLYCOL 17 GM PKG PO SCH (09:04)
[2016-12-26] MEDS: PANTOPRAZOLE SODIUM 40 MG VIAL IV PUSH SCH ×2 (09:05→21:51)
--- NOTE | 2016-12-26 09:11 | HHI.CCPN ---
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 He was hypotensive, febrile up to 101 and received IV fluid resuscitation with improvement in his blood pressure. EKG showed ST-T wave changes, and troponin was elevated and peaked at 17.1. The patient has been evaluated by cardiology. For NSTEMI patient underwent PCI with bare metal stent to LCx by Dr. Krause on 11/30/16. The patient had a CT of the abdomen and pelvis on admission which showed marked soft tissue thickening in the distal esophagus concerning for esophageal cancer. The patient was also noted to have liver cirrhosis and mild splenomegaly. Patient has a history of alcohol intake but according to the girlfriend has not had alcoholic drinks for several months. CTA no evidence of pulmonary embolism or pneumonia. Critical care was consulted today for altered mentation, persistent fever, MSSA bacteremia and worsening sepsis. Apparently patient was agitated overnight requiring restraints. He also sustained a fall when he tried to climb out of the bed. CT of the head was negative except for a possible artifact left temporal region. An MRI which was done today came back negative. On my evaluation the ICU patient was very lethargic and tachypneic breathing approximately 35-40. ABG showed respiratory alkalosis. His altered mentation is most likely secondary to severe sepsis, alcohol withdrawal seems less likely. Blood cultures 4/4 growing MSSA, lactic acid 3,6. 12/25: Today underwent EGD with esophageal stent placement. significant bleeding from distal esophagus. GI and anesthesia felt patient should remain intubated for airway protection. In addition, patient persistently hypotensive requiring vasopressors, phenylephrine at 100 mcg/min, and in a flutter RVR on diltiazem drip. On my evaluation, patient was becoming more unstable. Adenosine 6mg iv x 1 was given which confirmed the rhythm as a flutter, but did not convert patient. give that patient was not anticoagulated, risk/benefit of electrical cardioversion at that time was in favor of conservative measures. patient bolused with amiodarone and placed on amiodarone drip, along with aggressive electrolyte replacement. Of note, patient also has new documented diagnosis of dynamic LVOT obstruction due to his LV hypertrophy and hyperdynamic cardiac function. Critical care medicine re-consulted to evaluate and manage his respiratory failure and cardiac dysrhythmias. 12/26: No more bleeding. Will work to extubate and start liquids, continue oral meds, especially beta gutierrez. Objective Vital Signs Date Time Temp Pulse Resp B/P Pulse Ox O2 Delivery O2 Flow Rate FiO2 12/26/16 08:55 96 Nasal Cannula 2.00 12/26/16 08:01 40 12/26/16 06:00 92 12/26/16 04:00 97.8 12 103/48 Intake and Output 12/25/16 12/25/16 12/25/16 07:59 15:59 23:59 Intake Total 745 ml 2048 ml Output Total 425 ml 1725 ml Balance 320 ml 323 ml Result Diagram: 12/26/16 0510 12/26/16 0510 Other Results Microbiology Date/Time Procedure Status Source Growth 12/24/16 12:42 Stool Occult Blood (DAINA) - Final Complete Stool Stool HEMOCCULT NEGATIVE Laboratory Tests Test 12/25/16 20:21 Blood Gas Puncture Site ART LINE Blood Gas Patient Temperature 98.6 Blood Gas HCO3 27 mmol/L (22-26) Blood Gas Base Excess 2.8 mmol/L (-2-2) Blood Gas Oxygen Saturation 96 % (90-100) Arterial Blood pH 7.44 (7.380-7.420) Arterial Blood Partial 40 mmHg (38-42) Pressure CO2 Arterial Blood Partial 144 mmHg Pressure O2 (61-120) Arterial Blood Oxygen Content 12.2 Vol % (12.0-20.0) Arterial Blood 2.5 % (0-4) Carboxyhemoglobin Arterial Blood Methemoglobin 0.9 % (0-2) Blood Gas Hemoglobin 8.8 G/DL (12.0-16.0) Oxygen Delivery Device VENTILATOR Blood Gas Ventilator Setting A/C12/600/+5PEEP Blood Gas Inspired Oxygen 60 % Imaging Last Impressions GI Procedure 12/25/16 0000 Signed Impressions: Service Date/Time: December 19:33 - CONCLUSION: Spot film as above. Everett Pollock MD FACR Chest X-Ray 8/10/17 0000 Signed Impressions: Service Date/Time: December 20:28 - CONCLUSION: ET in good position; increasing congestive failure. Everett Pollock MD FACR Barium Swallow X-Ray 12/20/16 Signed Impressions: Service Date/Time: Tuesday, December 20, 2016 13:15 - CONCLUSION: 1. The distal half of the esophagus demonstrates irregular luminal narrowing consistent with the patient's history of esophageal adenocarcinoma. 2. Mild dilatation of the esophagus immediately proximal to the esophageal mass. However, there are no signs of obstruction. 3. Small hiatal hernia. Washington Marroquin MD Abdomen MRI 12/17/16 0000 Signed Impressions: Service Date/Time: Saturday, December 17, 2016 13:59 - CONCLUSION: 1. No acute finding is identified to explain the abdominal pain. 2. Stable thickening of the distal esophagus. There is a single mildly enlarged left gastric lymph node measuring 12 x 10 mm. 3. Moderate sized bilateral pleural effusions, left larger than right, with associated compressive atelectasis. Washington Marroquin MD Head CT 12/01/16 0000 Signed Impressions: Service Date/Time: Thursday, December 01, 2016 07:59 - CONCLUSION: 1. Questionable area of low attenuation left temporal lobe could be artifact versus less likely infarct. MRI may be warranted based on clinical history. 2. No midline shift or mass effect. 3. No intraparenchymal hemorrhage. Jagjit Tapia MD Brain MRI 12/01/16 0000 Signed Impressions: Service Date/Time: Thursday, December 01, 2016 12:07 - CONCLUSION: Normal examination. Barrett Rodriguez MD Abdomen X-Ray 12/01/16 0000 Signed Impressions: Service Date/Time: Thursday, December 01, 2016 16:48 - CONCLUSION: No evidence of obstruction. Feeding tube tip in the distal stomach. Barrett Rodriguez MD Abdomen/Pelvis CT 11/29/16 [id number] Signed Impressions: Service Date/Time: Wednesday, November 30, 2016 01:35 - CONCLUSION: 1. Markedly abnormal appearance of the distal esophagus consistent with the history of esophageal carcinoma. 2. Atherosclerotic calcifications of the aorta and iliac vessels. 3. Cirrhotic appearance to the liver with a mildly nodular contour present. Erik Simon MD CT Angiography 11/29/16 [id number] Signed Impressions: Service Date/Time: Wednesday, November 30, 2016 01:35 - CONCLUSION: 1. No evidence for pulmonary embolism or pneumonia. 2. Abnormal appearance of the esophagus with and soft tissue consistent with the history of carcinoma. Erik Simon MD Objective Remarks GENERAL: Patient is 61 yo lying in bed, intubated, sedated. SKIN: Warm and dry. HEAD: Normocephalic. EYES: No scleral icterus. No injection or drainage. MOUTH: No bleeding. NECK: trachea midline. No JVD. Orally intubated. CARDIOVASCULAR: Irreg, 90s.. RESPIRATORY: Breath sounds equal bilaterally. No wheezes. GASTROINTESTINAL: Abdomen soft, non-tender, nondistended. MUSCULOSKELETAL: No cyanosis, or edema. Well perfused. Neuro: RASS -1. intubated and sedated. w/d x 4. Procedures central line/ arterial line placement intubation cardiac catheterization port removal A/P Assessment and Plan Assessment: 61yM with esophageal cancer s/p stent placement with esophageal bleeding, airway compromise, and atrial flutter with rapid ventricular response , complicated by dynamic LVOT obstruction, hypotension requiring vasopressors. critically ill at this time. Acute airway compromise with hematemesis -- vent bundle, hob at 30 degrees, nebs -- wean fio2 for spo2 > 90% -- no sbt today given ongoing hematemesis Atrial flutter with Rapid Ventricular Response -- amio bolus and drip -- replace K and Mg -- continue cardizem drip -- not an anticoagulation candidate currently given active hematemesis Dynamic LVOT obstruction -- secondary to ventricular hypertrophy and hyperdynamic cardiac function -- goal to slow HR and maintain afterload -- continue phenylephrine for goal MAP > 65 mmHg Anemia secondary to acute blood loss -- does not meet transfusion triggers at this time -- serial hgb. This patient remains critically ill with one or more organ systems which are or may become a threat to life. I have spent in excess of 47 minutes discontinuously in the care and management of this patient. This time is exclusive of procedures, and includes, but is not limited to, evaluation of the patient, review of the medical record, discussions with family, consultants, nursing staff, or respiratory therapy, and documentation in the medical record. Freddy Bueno MD Dec 26, 2016 09:10
--- NOTE | 2016-12-26 09:43 | HHI.IDPN ---
Subjective Subjective Remarks Patient is a 61-year-old male, currently lethargic, and unable to give any history. History has been obtained from the chart. 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 It was reportedly malignant as well. He presented to the hospital complaining of generalized weakness, abdominal pain and progressive swallowing difficulty over the last 3 weeks. Evaluation in the emergency room revealed abnormal EKG, and he underwent cardiac catheterization. He had non-ST MA, and had revascularization with stent placement of his left circumflex artery. Patient is spiked to 103, and there were 2 blood cultures done yesterday that are now reported as growing staph aureus. Patient currently has a Saxena catheter. There is a lot of sediment in his urine, and his urine culture is also showing staph aureus. CT of the abdomen and pelvis did not show any abnormality except the soft tissue mass in the esophagus. He had atherosclerosis of his vasculature. There was also evidence of possible liver cirrhosis. Patient is being evaluated for chemotherapy and radiation, but he has not been started. He had an [id number]-[id number] placement on November 12 on his right upper chest. Notes reviewed D/W RN Underwent EUS and esophageal stent placement Had a lot of bleeding during procedure and kept intubated BP also dropped on neosynephrine Also had afib with RVR again, on cardizem/cordarone He just got intubated this morning - not SOB On nasal O2 Swallowing well Temps ok Port removed 12/02 Antibiotics Ancef/rifampin - plan to complete 01/15 Lines Port - removed 12/02 PICC Past Medical History Hypertension Hyperlipidemia CAD Diabetes 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 and he had good margins Recurrent squamous cell carcinoma on the left face, with involvement of the parotid gland, status post surgery at [facility] Recently found to have esophageal mass Past Surgical History Appendectomy Liver Biopsy Resection of a squamous cell carcinoma on the left cheek in 2011 Extensive surgery on the left face and neck for recurrent squamous cell carcinoma Port Placement November 12, 2016 Allergies: Coded Allergies: Penicillin (Verified Allergy, Mild, Hives, 11/12/16) Objective . Vital Signs Date Time Temp Pulse Resp B/P Pulse Ox O2 Delivery O2 Flow Rate FiO2 12/26/16 08:55 96 Nasal Cannula 2.00 12/26/16 08:40 96 Nasal Cannula 2 12/26/16 08:01 Nasal Cannula 40 12/26/16 07:55 100 40 12/26/16 06:00 92 12/26/16 04:31 100 40 12/26/16 04:00 97.8 93 12 100 103/48 12/26/16 04:00 93 12/26/16 04:00 40 12/26/16 02:00 105 12/26/16 01:14 100 40 12/26/16 00:00 98.3 116 12 100 106/52 12/26/16 00:00 116 12/26/16 00:00 40 12/25/16 22:00 98.0 93 12 100 100/47 12/25/16 22:00 93 12/25/16 22:00 100 Mechanical Ventilator 40 12/25/16 21:25 100 100 12/25/16 21:20 100 40 12/25/16 21:00 139 112/58 12/25/16 21:00 131 15 117/63 100 Mechanical Ventilator 60 12/25/16 20:45 141 108/58 12/25/16 20:45 141 13 147/75 100 Mechanical Ventilator 60 12/25/16 20:30 141 13 142/69 100 Mechanical Ventilator 60 12/25/16 20:15 143 18 96/53 100 Mechanical Ventilator 60 12/25/16 20:15 143 99/53 12/25/16 20:10 100 60 12/25/16 20:00 143 21 107/56 100 Mechanical Ventilator 60 12/25/16 20:00 143 107/63 12/25/16 19:55 100 60 12/25/16 19:45 98.7 141 13 131/63 100 Mechanical Ventilator 60 12/25/16 19:45 141 131/67 12/25/16 17:56 145 12/25/16 17:17 93 21 12/25/16 16:00 130 22 131/75 93 12/25/16 16:00 122 12/25/16 15:05 95 Room Air 12/25/16 15:05 99.3 113 18 120/79 95 12/25/16 15:00 131 12/25/16 14:01 132 12/25/16 13:15 94 12/25/16 13:00 146 12/25/16 12:30 97 Room Air 12/25/16 12:30 98.6 146 18 129/78 97 12/25/16 12:00 144 12/25/16 11:00 130 12/25/16 10:00 132 12/25/16 12/25/16 12/26/16 15:00 23:00 07:00 Intake Total 2048 ml 1630 ml Output Total 1725 ml 425 ml Balance 323 ml 1205 ml Intake Oral 0 ml 0 ml IV Total 748 ml 1630 ml Other 1300 ml Output Urine Total 1575 ml 425 ml Estimated Blood Loss 150 ml # Voids 4 # Bowel Movements 0 0 . Laboratory Tests Test 12/25/16 12/25/16 12/26/16 12/26/16 05:05 20:37 01:35 05:10 White Blood Count 6.2 TH/MM3 8.4 TH/MM3 10.5 TH/MM3 Red Blood Count 3.13 MIL/MM3 3.15 MIL/MM3 3.14 MIL/MM3 Hemoglobin 9.0 GM/DL 9.1 GM/DL 8.6 GM/DL 9.1 GM/DL Hematocrit 27.6 % 27.6 % 26.4 % 27.5 % Mean Corpuscular Volume 88.2 FL 87.8 FL 87.8 FL Mean Corpuscular Hemoglobin 28.6 PG 28.8 PG 28.9 PG Mean Corpuscular Hemoglobin 32.5 % 32.8 % 33.0 % Concent Red Cell Distribution Width 20.8 % 20.6 % 20.7 % Platelet Count 166 TH/MM3 198 TH/MM3 232 TH/MM3 Mean Platelet Volume 7.3 FL 7.4 FL 7.3 FL Neutrophils (%) (Auto) 76.0 % Lymphocytes (%) (Auto) 10.1 % Monocytes (%) (Auto) 13.2 % Eosinophils (%) (Auto) 0.4 % Basophils (%) (Auto) 0.3 % Neutrophils # (Auto) 6.4 TH/MM3 Lymphocytes # (Auto) 0.8 TH/MM3 Monocytes # (Auto) 1.1 TH/MM3 Eosinophils # (Auto) 0.0 TH/MM3 Basophils # (Auto) 0.0 TH/MM3 CBC Comment DIFF FINAL Differential Comment Laboratory Tests Test 12/25/16 12/25/1617 05:05 20:37 05:10 Sodium Level 132 MEQ/L 131 MEQ/L 132 MEQ/L Potassium Level 3.9 MEQ/L 4.0 MEQ/L 3.7 MEQ/L Chloride Level 94 MEQ/L 95 MEQ/L 96 MEQ/L Carbon Dioxide Level 30.4 MEQ/L 29.6 MEQ/L 28.2 MEQ/L Anion Gap 8 MEQ/L 6 MEQ/L 8 MEQ/L Blood Urea Nitrogen 14 MG/DL 13 MG/DL 11 MG/DL Creatinine 0.63 MG/DL 0.61 MG/DL 0.61 MG/DL Estimat Glomerular Filtration 130 ML/MIN 135 ML/MIN 135 ML/MIN Rate Random Glucose 141 MG/DL 162 MG/DL 204 MG/DL Calcium Level 8.0 MG/DL 7.5 MG/DL 7.6 MG/DL Total Bilirubin 0.6 MG/DL Aspartate Amino Transf 40 U/L (AST/SGOT) Alanine Aminotransferase 27 U/L (ALT/SGPT) Alkaline Phosphatase 94 U/L Total Protein 5.7 GM/DL Albumin 1.6 GM/DL Microbiology Date/Time Procedure Status Source Growth 12/24/16 12:42 Stool Occult Blood (DAINA) - Final Complete Stool Stool HEMOCCULT NEGATIVE Imaging Last 48 hours Impressions Chest X-Ray 12/26/16 0600 Signed Impressions: Service Date/Time: Monday, December 26, 2016 03:45 - CONCLUSION: Improving pulmonary edema and effusions, now mild/small. Unchanged moderate cardiomegaly. Washington Beasley MD GI Procedure 12/25/16 0000 Signed Impressions: Service Date/Time: December 19:33 - CONCLUSION: Spot film as above. Everett Pollock MD FACR Chest X-Ray 12/25/16 0000 Signed Impressions: Service Date/Time: December 20:28 - CONCLUSION: ET in good position; increasing congestive failure. Everett Pollock MD FACR Chest X-Ray 12/05/16 0600 Signed Impressions: Service Date/Time: Monday, December 05, 2016 03:30 - CONCLUSION: 1. Cardiomegaly and findings of vascular congestion without overt failure. There has been no significant change when compared to the prior exam. Bobby Matias MD Head CT 12/01/16 0000 Signed Impressions: Service Date/Time: Thursday, December 01, 2016 07:59 - CONCLUSION: 1. Questionable area of low attenuation left temporal lobe could be artifact versus less likely infarct. MRI may be warranted based on clinical history. 2. No midline shift or mass effect. 3. No intraparenchymal hemorrhage. Jagjit Tapia MD Brain MRI 12/01/16 0000 Signed Impressions: Service Date/Time: Thursday, December 01, 2016 12:07 - CONCLUSION: Normal examination. Barrett Rodriguez MD Abdomen X-Ray 12/01/16 0000 Signed Impressions: Service Date/Time: Thursday, December 01, 2016 16:48 - CONCLUSION: No evidence of obstruction. Feeding tube tip in the distal stomach. Barrett Rodriguez MD Abdomen/Pelvis CT 11/29/16 2356 Signed Impressions: Service Date/Time: Wednesday, November 30, 2016 01:35 - CONCLUSION: 1. Markedly abnormal appearance of the distal esophagus consistent with the history of esophageal carcinoma. 2. Atherosclerotic calcifications of the aorta and iliac vessels. 3. Cirrhotic appearance to the liver with a mildly nodular contour present. Erik Simon MD CT Angiography 11/29/16 2348 Signed Impressions: Service Date/Time: Wednesday, November 30, 2016 01:35 - CONCLUSION: 1. No evidence for pulmonary embolism or pneumonia. 2. Abnormal appearance of the esophagus with and soft tissue consistent with the history of carcinoma. Erik Simon MD Chest X-Ray 12/03/16 0600 Signed Impressions: Service Date/Time: Saturday, December 03, 2016 04:43 - CONCLUSION: Increasing consolidation in the left lower lung. Bilateral interstitial changes. Niko Wilcox MD Chest X-Ray 12/03/16 0000 Signed Impressions: Service Date/Time: Saturday, December 03, 2016 07:48 - CONCLUSION: 1. Persistent left retrocardiac density and slight interstitial prominence. Jagjit Tapia MD Chest X-Ray 12/02/16 0000 Signed Impressions: Service Date/Time: Friday, December 02, 2016 15:55 - CONCLUSION: Normal examination with endotracheal tube and central lines in good position. Barrett Rodriguez MD Chest X-Ray 12/02/16 0000 Signed Impressions: Service Date/Time: Friday, December 02, 2016 08:24 - CONCLUSION: Mild perihilar vascular congestion. Endotracheal tube is in good position Barrett Rodriguez MD Chest X-Ray 12/02/16 0000 Signed Impressions: Service Date/Time: Friday, December 02, 2016 06:53 - CONCLUSION: Underinflated examination with atelectasis at the lung bases. Given the technique, no acute abnormality or significant interval change is appreciated. Washington Marroquin MD Physical Exam GENERAL: Awake, alert, not in distress SKIN: Warm and dry. No generalized rash EYES: Extraocular movements full and intact. [place]. No scleral icterus. No injection or drainage. EARS, NOSE AND THROAT: Nose without bleeding or purulent nasal discharge. No sinus tenderness. Orally intubated NECK: Trachea midline. Supple and not tender, no meningeal signs CARDIOVASCULAR: Irregular rate and rhythm, HR 129. There is a coarse systolic murmur at base of the heart. No rub. RESPIRATORY: Coarse BS bilaterally. Previous port with intact dressing, open incision, dry ABDOMEN: Soft, not distended, not tender. Bowel sounds present and normoactive. No organomegaly. EXTREMITIES: No clubbing, cyanosis. Has pitting BLE edema, weeping. No calf tenderness. Well perfused and warm. NEUROLOGICAL: Awake, non-focal PSYCHIATRIC: calm and cooperative LINE: Dry dressing on previous port site, healing. PICC site ok : Saxena in place Assessment & Plan Remarks IMPRESSION Sepsis, with shock has MSSA due to port infection, better - S/P removal port 12/02 - last (+) BC 12/05 Respiratory failure, better - has L base infiltrate, and GNR in sputum - S/P Rx 12/13 (+) UC with Staph aureus, due to current bacteremia Recurrent squamous cell CA Esophageal CA, S/P EUS and stent placement Lethargy and SOB due to sepsis, resolved - has acidosis, resolved Renal insufficiency, due to sepsis and shock, better Confusion - ?meds - better Atrial fib, rate still goes up and down New murmur - last echo with new "pseudo" outflow tract obstruction, ?this is source Shock post procedure, on Neosynephrine and afib still RVR RECOMMENDATION Continue Rifampin, for synergy vs MSSA - follow LFT Continue IV Ancef He will need 6 weeks IV Abx - anticipated end date Jan 15 (6 weeks from last +BC) Labs weekly while on Abx: CBC, creatinine and LFT - will have HEPAS order and monitor - call if abnormal and with questions D/W RN Dr Garcia covering this weekend, and available if with any new ID issue this weekend Carola Nassar MD Dec 26, 2016 09:43
[2016-12-26] MEDS: INSULIN DETEMIR 100 UNITS/ML VIAL SQ SCH ×2 (10:16→21:52)
--- NOTE | 2016-12-26 11:30 | PD.ONC.PN ---
Subjective Subjective Remarks Afebrile overnight. Patient resting in bed in nad. Was extubated this AM. Pressor being down titrated. Objective Data Date Time Temp Pulse Resp B/P Pulse Ox O2 Delivery O2 Flow Rate FiO2 12/26/16 10:00 120 12/26/16 08:55 96 Nasal Cannula 2.00 12/26/16 08:40 96 Nasal Cannula 2 12/26/16 08:01 Nasal Cannula 40 12/26/16 08:00 100 Mechanical Ventilator 40 12/26/16 08:00 110 12/26/16 08:00 40 12/26/16 08:00 99.6 95 12 100 126/51 12/26/16 07:55 100 40 12/26/16 06:00 92 12/26/16 04:31 100 40 12/26/16 04:00 97.8 93 12 100 103/48 12/26/16 04:00 93 12/26/16 04:00 40 12/26/16 02:00 105 12/26/16 01:14 100 40 12/26/16 00:00 98.3 116 12 100 106/52 12/26/16 00:00 116 12/26/16 00:00 40 12/25/16 22:00 98.0 93 12 100 100/47 12/25/16 22:00 93 12/25/16 22:00 100 Mechanical Ventilator 40 12/25/16 21:25 100 100 12/25/16 21:20 100 40 12/25/16 21:00 139 112/58 12/25/16 21:00 131 15 117/63 100 Mechanical Ventilator 60 12/25/16 20:45 141 108/58 12/25/16 20:45 141 13 147/75 100 Mechanical Ventilator 60 12/25/16 20:30 141 13 142/69 100 Mechanical Ventilator 60 12/25/16 20:15 143 18 96/53 100 Mechanical Ventilator 60 12/25/16 20:15 143 99/53 12/25/16 20:10 100 60 12/25/16 20:00 143 21 107/56 100 Mechanical Ventilator 60 12/25/16 20:00 143 107/63 12/25/16 19:55 100 60 12/25/16 19:45 98.7 141 13 131/63 100 Mechanical Ventilator 60 12/25/16 19:45 141 131/67 12/25/16 17:56 145 12/25/16 17:17 93 21 12/25/16 16:00 130 22 131/75 93 12/25/16 16:00 122 12/25/16 15:05 95 Room Air 12/25/16 15:05 99.3 113 18 120/79 95 12/25/16 15:00 131 12/25/16 14:01 132 12/25/16 13:15 94 12/25/16 13:00 146 12/25/16 12:30 97 Room Air 12/25/16 12:30 98.6 146 18 129/78 97 12/25/16 12:00 144 12/26/16 12/26/16 12/26/16 07:00 15:00 23:00 Intake Total 1630 ml Output Total 425 ml Balance 1205 ml Result Diagram: 12/26/16 0510 12/26/16 0510 Laboratory Results Laboratory Tests Test 12/25/16 12/25/16 12/25/16 12/26/16 20:21 20:37 21:42 01:35 Blood Gas Puncture Site ART LINE Blood Gas Patient Temperature 98.6 Blood Gas HCO3 27 mmol/L Blood Gas Base Excess 2.8 mmol/L Blood Gas Oxygen Saturation 96 % Arterial Blood pH 7.44 Arterial Blood Partial 40 mmHg Pressure CO2 Arterial Blood Partial 144 mmHg Pressure O2 Arterial Blood Oxygen Content 12.2 Vol % Arterial Blood 2.5 % Carboxyhemoglobin Arterial Blood Methemoglobin 0.9 % Blood Gas Hemoglobin 8.8 G/DL Oxygen Delivery Device VENTILATOR Blood Gas Ventilator Setting A/C12/600/+5PEEP Blood Gas Inspired Oxygen 60 % White Blood Count 8.4 TH/MM3 Red Blood Count 3.15 MIL/MM3 Hemoglobin 9.1 GM/DL 8.6 GM/DL Hematocrit 27.6 % 26.4 % Mean Corpuscular Volume 87.8 FL Mean Corpuscular Hemoglobin 28.8 PG Mean Corpuscular Hemoglobin 32.8 % Concent Red Cell Distribution Width 20.6 % Platelet Count 198 TH/MM3 Mean Platelet Volume 7.4 FL Neutrophils (%) (Auto) 76.0 % Lymphocytes (%) (Auto) 10.1 % Monocytes (%) (Auto) 13.2 % Eosinophils (%) (Auto) 0.4 % Basophils (%) (Auto) 0.3 % Neutrophils # (Auto) 6.4 TH/MM3 Lymphocytes # (Auto) 0.8 TH/MM3 Monocytes # (Auto) 1.1 TH/MM3 Eosinophils # (Auto) 0.0 TH/MM3 Basophils # (Auto) 0.0 TH/MM3 CBC Comment DIFF FINAL Differential Comment Prothrombin Time 13.7 SEC Prothromb Time International 1.2 RATIO Ratio Activated Partial 30.8 SEC Thromboplast Time Sodium Level 131 MEQ/L Potassium Level 4.0 MEQ/L Chloride Level 95 MEQ/L Carbon Dioxide Level 29.6 MEQ/L Anion Gap 6 MEQ/L Blood Urea Nitrogen 13 MG/DL Creatinine 0.61 MG/DL Estimat Glomerular Filtration 135 ML/MIN Rate Random Glucose 162 MG/DL Calcium Level 7.5 MG/DL Total Bilirubin 0.6 MG/DL Aspartate Amino Transf 40 U/L (AST/SGOT) Alanine Aminotransferase 27 U/L (ALT/SGPT) Alkaline Phosphatase 94 U/L Total Protein 5.7 GM/DL Albumin 1.6 GM/DL Nasal Screen MRSA (PCR) MRSA NOT DETECTED Test 12/26/16 05:10 White Blood Count 10.5 TH/MM3 Red Blood Count 3.14 MIL/MM3 Hemoglobin 9.1 GM/DL Hematocrit 27.5 % Mean Corpuscular Volume 87.8 FL Mean Corpuscular Hemoglobin 28.9 PG Mean Corpuscular Hemoglobin 33.0 % Concent Red Cell Distribution Width 20.7 % Platelet Count 232 TH/MM3 Mean Platelet Volume 7.3 FL Sodium Level 132 MEQ/L Potassium Level 3.7 MEQ/L Chloride Level 96 MEQ/L Carbon Dioxide Level 28.2 MEQ/L Anion Gap 8 MEQ/L Blood Urea Nitrogen 11 MG/DL Creatinine 0.61 MG/DL Estimat Glomerular Filtration 135 ML/MIN Rate Random Glucose 204 MG/DL Calcium Level 7.6 MG/DL Culture Results Microbiology Date/Time Procedure Status Source Growth 12/24/16 12:42 Stool Occult Blood (DAINA) - Final Complete Stool Stool HEMOCCULT NEGATIVE Imaging Studies Last 24 hours Impressions Chest X-Ray 12/26/16 0600 Signed Impressions: Service Date/Time: Monday, December 26, 2016 03:45 - CONCLUSION: Improving pulmonary edema and effusions, now mild/small. Unchanged moderate cardiomegaly. Washington Beasley MD Administered Medications Medications (Trade) Dose Ordered Sig/Geovanny Route PRN Reason Start Time Stop Time Status Last Admin Dose Admin Sodium Chloride (NS Flush) 2 ml UNSCH PRN IV FLUSH FLUSH AFTER USING IV ACCESS 11/30/16 02:45 12/24/16 09:59 Sodium Chloride (NS Flush) 2 ml BID IV FLUSH 11/30/16 09:00 12/26/16 08:19 Oxycodone HCl (Roxicodone) 5 mg Q4H PRN PO PAIN SCALE 3 TO 5 11/30/16 02:45 12/25/16 05:24 Senna/Docusate Sodium (Rere-Colace) 1 tab BID PO 11/30/16 09:00 12/26/16 09:04 Acetaminophen (Tylenol) 325 mg Q4H PRN PO PAIN SCALE 1 TO 2 11/30/16 13:45 12/13/16 17:13 Clopidogrel Bisulfate (Plavix) 75 mg DAILY PO 12/01/16 09:00 Hold 12/25/16 08:06 Ondansetron HCl (Zofran Inj) 4 mg Q4H PRN IV NAUSEA 11/30/16 13:45 12/24/16 22:41 Sodium Chloride (NS Flush) 5 ml Q21D IV FLUSH 11/30/16 18:00 12/21/16 17:19 Heparin Sodium (Porcine) (Heparin Central Flush) 500 units Q21D IV FLUSH 11/30/16 18:00 11/30/16 18:04 Acetaminophen (Tylenol 650 Mg/ 20 ml Liq) 650 mg Q6H PRN PO FEVER 12/01/16 17:30 12/02/16 01:07 Polyethylene Glycol (Miralax) 17 gm DAILY PO 12/04/16 09:00 12/26/16 09:04 Thiamine HCl (Vitamin B1) 100 mg DAILY PO 12/05/16 09:00 12/26/16 09:04 Multivitamins (Theragran) 1 tab DAILY PO 12/05/16 09:00 12/26/16 08:53 Folic Acid (Folate) 1 mg DAILY PO 12/05/16 09:00 Hold 12/25/16 08:07 Rifampin 300 mg 300 mg Q12HR PO 12/06/16 09:15 01/15/17 23:00 12/26/16 08:53 Cefazolin Sodium/ Dextrose (Ancef 2 Gm Premix) 50 ml @ 100 mls/hr Q8H IV 12/06/16 10:00 01/15/17 23:00 12/26/16 09:05 Lorazepam (Ativan Inj) 1 mg Q4H PRN IV PUSH ANXIETY AND/OR AGITATION 12/09/16 15:15 12/19/16 01:59 Atorvastatin Calcium (Lipitor) 40 mg HS PO 12/12/16 21:00 Hold 12/24/16 21:00 Sodium Chloride (NS Flush) See Protocol DAILY IV FLUSH 12/13/16 09:00 12/26/16 08:19 Heparin Sodium (Porcine) (Heparin Central Flush) See Protocol DAILY IV FLUSH 12/13/16 09:00 12/25/16 08:08 Sodium Chloride (NS Flush) UNSCH PRN IV FLUSH SEE PROTOCOL TABLE 12/12/16 17:00 12/19/16 01:59 Insulin Detemir (Levemir Inj) 6 units Q12HR SQ 12/14/16 09:00 12/26/16 10:16 Lorazepam (Ativan) 0.5 mg DAILY PRN PO ANXIETY 12/18/16 15:45 Hold 12/19/16 08:29 Diltiazem HCl 90 mg 90 mg Q6H PO 12/18/16 23:00 Hold 12/25/16 12:14 Diltiazem HCl/ Sodium Chloride (Cardizem Inj/NS Inj) 125 ml @ 0 mls/hr TITRATE IV 12/19/16 18:15 12/26/16 08:55 Prednisone (Deltasone) 10 mg DAILY PO 12/21/16 09:00 12/26/16 08:53 Oxycodone HCl (Roxicodone) 15 mg Q4H PRN PO PAIN 6-10 12/21/16 11:00 12/25/16 15:28 Digoxin (Lanoxin) 0.25 mg DAILY PO 12/22/16 09:00 Hold 12/25/16 08:06 Sucralfate (Carafate Liq) 1 gm ACHS PO 12/22/16 11:00 12/25/16 12:14 Metoprolol Tartrate (Lopressor Inj) 5 mg Q1HR PRN IV PUSH RAPID HEART RATE 12/22/16 09:45 12/24/16 22:59 Pantoprazole Sodium (Protonix Inj) 40 mg Q12H IV PUSH 12/22/16 10:00 12/26/16 09:05 Aspirin (Ecotrin Ec) 81 mg DAILY PO 12/23/16 09:00 Hold 12/25/16 08:06 Metoprolol Tartrate (Lopressor) 25 mg Q6HR PO 12/22/16 13:00 12/25/16 12:14 Morphine Sulfate (Morphine Inj) 2 mg Q4H PRN IV PUSH pain >5 12/23/16 00:00 12/25/16 12:27 Furosemide 20 mg 20 mg DAILY IV PUSH 12/24/16 09:15 12/26/16 08:29 Propofol 100 ml @ 0 mls/hr TITRATE IV 12/25/16 20:30 12/26/16 06:08 Phenylephrine HCl/ Dextrose (Neosynephrine Inj/D5W 500 ml Inj) 500 ml @ 0 mls/hr TITRATE IV 12/25/16 20:45 12/26/16 07:55 Chlorhexidine Gluconate (Peridex 0.12% Liq) 15 ml BID@08,20 MT 12/26/16 08:00 12/26/16 08:00 Insulin Human Regular 1 1 Q6HR SQ 12/26/16 00:00 12/26/16 06:10 Dextrose 1,000 ml @ 42 mls/hr [id number] IV 12/25/16 21:00 12/25/16 23:27 Amiodarone HCl/ Dextrose (Cordarone Inj/ D5W ([place]) Inj) 250 ml @ 0 mls/hr CONTINUOUS IV 12/25/16 21:15 12/26/16 06:08 Objective Remarks GENERAL: Chronically ill-appearing male sitting up in bed. SKIN: Warm and dry. HEAD: Normocephalic. EYES: No injection or drainage. NECK: Supple, trachea midline. CARDIOVASCULAR: +S1/S2, tachy RESPIRATORY: anterior ray with occasional rhonchi. On 2L O2 via NC GASTROINTESTINAL: Abdomen soft, non-tender, nondistended. EXTREMITIES: No cyanosis. +anasarca NEUROLOGICAL: awake and alert. normal speech. Assessment/Plan Problem List: (1) Esophageal adenocarcinoma Status: Acute Plan: --EUS with esophageal stent placement on 12/25 --++hemoptysis --we plan to give weekly Erbitux and XRT outpatient. --patient had OP EGD with biopsy, pathology showed adenocarcinoma. --EGD/Colonoscopy, 11/20/16--showed long stricture in the mid esophagus and distal esophagus, multiple biopsies were performed Pathology revealed invasive adenocarcinoma- distal esophagus --XRT simulation done 12/19. --XRT planned to start by next week. (2) SCC (squamous cell carcinoma) Status: Acute Plan: --has a head and neck, lung malignancy which was locally advanced. --received definitive treatment with surgery. Post surgery he had positive margins and some poor risk features and he was about to get concurrent chemotherapy and radiation and adjuvantly to achieve local control of the disease --PET scan to stage his disease prior to treatment showed an esophageal mass (3) Normocytic anemia Status: Acute Plan: --hgb stable but now patient has worsening hemoptysis/hematemesis, likely d/t esophageal mass --transfuse packed red blood cells if his hemoglobin drops below 8. --s/p iron infusion (4) NSTEMI (non-ST elevated myocardial infarction) Status: Acute Plan: --had elevated troponin and ST-segment changes consistent with acute [place]. --s/p cardiac cath, stent placement to proximal left circumflex --cardiology following --on plavix and ASA (on hold) (5) Afib Status: Acute Plan: --cardiology following. (6) Sepsis Status: Resolved Plan: BC, 12.08 no growth BC, 12/07 no growth --BC, 12/05 +, S. Aureus --had removal of port, + S. 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 Also with a new diagnosis of early stage gastric cancer Plan 1. monitor CBC 2. diet per GI 3. continue supportive care. once patient improved, will start XRT/Erbitux outpatient Attending Statement The exam, history, and the medical decision-making described in the above note were completed with the assistance of the mid-level provider. I reviewed and agree with the findings presented. I attest that I had a [id number] encounter with the patient on the same day, and personally performed and documented my assessment and findings in the medical record. Extubated and on O2 mask awake and aler s/p EUS and stent placement Path pending will review EUS report when available supportive care through the weekend Problem Qualifiers (1) Afib: Qualified Code: I48.91 - Atrial fibrillation, unspecified type (2) Sepsis: Qualified Code: A41.9 - Sepsis, due to unspecified organism Perla Duran Dec 26, 2016 11:30 Brant Bell MD Dec 26, 2016 19:36
[2016-12-26 13:21] LABS: REVIEW FLAG FINAL
--- NOTE | 2016-12-26 13:55 | HHI.HCPN ---
Reason for visit a. To assist with evaluation and management of symptoms including: Pain, dysphasia, presyncope, edema. b. To assist medical decision maker(s) with: better understanding of current medical conditions; weighing benefits/burdens of medical treatment options; making medical treatment decisions. (Betty Galindo) Subjective/Interval History 61-year-old male with esophageal adenocarcinoma, T3, N0, MX per EUS 12/25/16. Underwent EGD with esophageal stent placement yesterday and developed significant bleeding during stent placement and was kept intubated by anesthesia and transferred to ICU to the gun number service. He is status post left parotidectomy and radical neck dissection at [facility] due to poorly differentiated squamous cell carcinoma. Findings during this hospitalization include dynamic LVOT obstruction due to LV hypertrophy and hyperdynamic cardiac function. He was previously on Plavix and aspirin status post bare-metal stent placement for non-STEMI infarction upon admission. Those have been held due to his current GI bleed. He is awake at this evaluation, recently extubated this morning. Vasopressors are being weaned. He remains mildly tachycardic. No significant bleeding noted overnight. Hemoglobin showed mild decrease from 9.1 g/dL last night 8.6 g /dL today. Chest x-ray showed improving pulmonary edema and effusions now in the mild to small range with unchanged moderate cardiomegaly. Discussed prognosis with Ann Marie Duran from oncology and prognosis is felt to be positive for curative treatment with chemotherapy (Erubitux) and radiation as outpatient for the adenocarcinoma. 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 Pathology showed positive margins and he is pending, concurrent chemotherapy and radiation to achieve local control of that disease. . (Betty Galindo) Advance Directives Living Will: Never completed Health Care Surrogate: Copy in medical record Durable Power of Front End Alignment Specialist: Never completed (Betty Galindo) Objective Vital Signs Date Time Temp Pulse Resp B/P Pulse Ox O2 Delivery O2 Flow Rate FiO2 12/26/16 12:00 103 12/26/16 12:00 98.7 97 15 97 125/59 12/26/16 10:00 120 12/26/16 08:55 96 Nasal Cannula 2.00 12/26/16 08:40 96 Nasal Cannula 2 12/26/16 08:01 Nasal Cannula 40 8/11/17 08:00 100 Mechanical Ventilator 40 12/26/16 08:00 110 12/26/16 08:00 40 12/26/16 08:00 99.6 95 12 100 126/51 12/26/16 07:55 100 40 12/26/16 06:00 92 12/26/16 04:31 100 40 12/26/16 04:00 97.8 93 12 100 103/48 12/26/16 04:00 93 12/26/16 04:00 40 12/26/16 02:00 105 12/26/16 01:14 100 40 12/26/16 00:00 98.3 116 12 100 106/52 12/26/16 00:00 116 12/26/16 00:00 40 12/25/16 22:00 98.0 93 12 100 100/47 12/25/16 22:00 93 12/25/16 22:00 100 Mechanical Ventilator 40 12/25/16 21:25 100 100 12/25/16 21:20 100 40 12/25/16 21:00 139 112/58 12/25/16 21:00 131 15 117/63 100 Mechanical Ventilator 60 12/25/16 20:45 141 108/58 12/25/16 20:45 141 13 147/75 100 Mechanical Ventilator 60 12/25/16 20:30 141 13 142/69 100 Mechanical Ventilator 60 12/25/16 20:15 143 18 96/53 100 Mechanical Ventilator 60 12/25/16 20:15 143 99/53 12/25/16 20:10 100 60 12/25/16 20:00 143 21 107/56 100 Mechanical Ventilator 60 12/25/16 20:00 143 107/63 12/25/16 19:55 100 60 12/25/16 19:45 98.7 141 13 131/63 100 Mechanical Ventilator 60 12/25/16 19:45 141 131/67 12/25/16 17:56 145 12/25/16 17:17 93 21 12/25/16 16:00 130 22 131/75 93 12/25/16 16:00 122 12/25/16 15:05 95 Room Air 12/25/16 15:05 99.3 113 18 120/79 95 12/25/16 15:00 131 8/10/17 14:01 132 Intake & Output 12/26/16 12/26/16 07:00 19:00 Intake Total 3455 ml Output Total 1050 ml Balance 2405 ml Intake Oral 0 ml IV Total 2155 ml Other 1300 ml Output Urine Total 900 ml Estimated Blood Loss 150 ml # Bowel Movements 0 Physical Exam CONSTITUTIONAL/GENERAL: This is an adequately nourished patient, in no apparent distress. TUBES/LINES/DRAINS: 4 Malian left inner proximal upper arm PICC line, PIV 20- gauge left upper arm. Right radial arterial line SKIN: No jaundice, rashes, or lesions. Bilateral rey abrasions. Skin temperature appropriate. Not diaphoretic. HEAD: Atraumatic. Normocephalic. EYES: Pupils equal and round and reactive. Extraocular motions intact. No scleral icterus. No injection or drainage. Fundi not examined. ENT: Hearing grossly normal. Nose without bleeding or purulent drainage. Left cheek with postsurgical changes, healed. NECK: Trachea midline. Supple, nontender. No palpable thyroid enlargement or nodularity. CARDIOVASCULAR: Tachycardic rate, regular rhythm, cardiac rub auscultated in all ray. RESPIRATORY/CHEST: Symmetric, unlabored respirations. Clear, diminished to auscultation. Breath sounds equal bilaterally. No wheezes, rales, or rhonchi. GASTROINTESTINAL: Abdomen soft, non-tender, nondistended. No guarding. Bowel sounds present. GENITOURINARY: Without palpable bladder distension. Saxena catheter intact to bedside drainage. MUSCULOSKELETAL: Extremities with 3+ pitting edema. Moves all extremities independently with purpose. LYMPHATICS: No palpable cervical or supraclavicular adenopathy. NEUROLOGICAL: Awake and sleepy. Motor and sensory grossly within normal limits. Follows commands. Moves all extremities. PSYCHIATRIC: Calm, appropriate, no apparent hallucinations or other psychotic thought process. . (Betty Galindo) Diagnostic Tests Laboratory Laboratory Tests Test 12/24/16 12/24/16 12/24/16 12/25/16 02:10 03:05 09:05 05:05 Sodium Level 134 MEQ/L 132 MEQ/L (136-145) (136-145) Potassium Level 3.9 MEQ/L 3.9 MEQ/L (3.5-5.1) (3.5-5.1) Chloride Level 96 MEQ/L 94 MEQ/L (98-107) (98-107) Carbon Dioxide Level 31.2 MEQ/L 30.4 MEQ/L (21.0-32.0) (21.0-32.0) Anion Gap 7 MEQ/L (5-15) 8 MEQ/L (5-15) Blood Urea Nitrogen 14 MG/DL (7-18) 14 MG/DL (7-18) Creatinine 0.57 MG/DL 0.63 MG/DL (0.60-1.30) (0.60-1.30) Estimat Glomerular Filtration 146 ML/MIN 130 ML/MIN Rate (>89) (>89) Random Glucose 120 MG/DL 141 MG/DL (74-106) (74-106) Calcium Level 8.0 MG/DL 8.0 MG/DL (8.5-10.1) (8.5-10.1) Blood Type O NEGATIVE Antibody Screen NEGATIVE Crossmatch Leukocyte-Reduced Red Blood Cells Blood Bank Comment White Blood Count 5.6 TH/MM3 6.2 TH/MM3 (4.0-11.0) (4.0-11.0) Red Blood Count 3.15 MIL/MM3 3.13 MIL/MM3 (4.50-5.90) (4.50-5.90) Hemoglobin 9.1 GM/DL 9.0 GM/DL (13.0-17.0) (13.0-17.0) Hematocrit 27.7 % 27.6 % (39.0-51.0) (39.0-51.0) Mean Corpuscular Volume 87.8 FL 88.2 FL (80.0-100.0) (80.0-100.0) Mean Corpuscular Hemoglobin 28.8 PG 28.6 PG (27.0-34.0) (27.0-34.0) Mean Corpuscular Hemoglobin 32.8 % 32.5 % Concent (32.0-36.0) (32.0-36.0) Red Cell Distribution Width 20.4 % 20.8 % (11.6-17.2) (11.6-17.2) Platelet Count 166 TH/MM3 166 TH/MM3 (150-450) (150-450) Mean Platelet Volume 7.6 FL 7.3 FL (7.0-11.0) (7.0-11.0) Neutrophils (%) (Auto) 73.9 % (16.0-70.0) Lymphocytes (%) (Auto) 10.5 % (9.0-44.0) Monocytes (%) (Auto) 14.3 % (0.0-8.0) Eosinophils (%) (Auto) 1.1 % (0.0-4.0) Basophils (%) (Auto) 0.2 % (0.0-2.0) Neutrophils # (Auto) 4.2 TH/MM3 (1.8-7.7) Lymphocytes # (Auto) 0.6 TH/MM3 (1.0-4.8) Monocytes # (Auto) 0.8 TH/MM3 (0-0.9) Eosinophils # (Auto) 0.1 TH/MM3 (0-0.4) Basophils # (Auto) 0.0 TH/MM3 (0-0.2) CBC Comment DIFF FINAL Differential Comment Test 12/25/16 12/25/16 12/25/16 12/26/16 20:21 20:37 21:42 01:35 Blood Gas Puncture Site ART LINE Blood Gas Patient Temperature 98.6 Blood Gas HCO3 27 mmol/L (22-26) Blood Gas Base Excess 2.8 mmol/L (-2-2) Blood Gas Oxygen Saturation 96 % (90-100) Arterial Blood pH 7.44 (7.380-7.420) Arterial Blood Partial 40 mmHg (38-42) Pressure CO2 Arterial Blood Partial 144 mmHg Pressure O2 (61-120) Arterial Blood Oxygen Content 12.2 Vol % (12.0-20.0) Arterial Blood 2.5 % (0-4) Carboxyhemoglobin Arterial Blood Methemoglobin 0.9 % (0-2) Blood Gas Hemoglobin 8.8 G/DL (12.0-16.0) Oxygen Delivery Device VENTILATOR Blood Gas Ventilator Setting A/C12/600/+5PEEP Blood Gas Inspired Oxygen 60 % White Blood Count 8.4 TH/MM3 (4.0-11.0) Red Blood Count 3.15 MIL/MM3 (4.50-5.90) Hemoglobin 9.1 GM/DL 8.6 GM/DL (13.0-17.0) (13.0-17.0) Hematocrit 27.6 % 26.4 % (39.0-51.0) (39.0-51.0) Mean Corpuscular Volume 87.8 FL (80.0-100.0) Mean Corpuscular Hemoglobin 28.8 PG (27.0-34.0) Mean Corpuscular Hemoglobin 32.8 % Concent (32.0-36.0) Red Cell Distribution Width 20.6 % (11.6-17.2) Platelet Count 198 TH/MM3 (150-450) Mean Platelet Volume 7.4 FL (7.0-11.0) Neutrophils (%) (Auto) 76.0 % (16.0-70.0) Lymphocytes (%) (Auto) 10.1 % (9.0-44.0) Monocytes (%) (Auto) 13.2 % (0.0-8.0) Eosinophils (%) (Auto) 0.4 % (0.0-4.0) Basophils (%) (Auto) 0.3 % (0.0-2.0) Neutrophils # (Auto) 6.4 TH/MM3 (1.8-7.7) Lymphocytes # (Auto) 0.8 TH/MM3 (1.0-4.8) Monocytes # (Auto) 1.1 TH/MM3 (0-0.9) Eosinophils # (Auto) 0.0 TH/MM3 (0-0.4) Basophils # (Auto) 0.0 TH/MM3 (0-0.2) CBC Comment DIFF FINAL Differential Comment Prothrombin Time 13.7 SEC (9.8-11.6) Prothromb Time International 1.2 RATIO Ratio Activated Partial 30.8 SEC Thromboplast Time (24.3-30.1) Sodium Level 131 MEQ/L (136-145) Potassium Level 4.0 MEQ/L (3.5-5.1) Chloride Level 95 MEQ/L (98-107) Carbon Dioxide Level 29.6 MEQ/L (21.0-32.0) Anion Gap 6 MEQ/L (5-15) Blood Urea Nitrogen 13 MG/DL (7-18) Creatinine 0.61 MG/DL (0.60-1.30) Estimat Glomerular Filtration 135 ML/MIN Rate (>89) Random Glucose 162 MG/DL (74-106) Calcium Level 7.5 MG/DL (8.5-10.1) Total Bilirubin 0.6 MG/DL (0.2-1.0) Aspartate Amino Transf 40 U/L (15-37) (AST/SGOT) Alanine Aminotransferase 27 U/L (12-78) (ALT/SGPT) Alkaline Phosphatase 94 U/L (45-117) Total Protein 5.7 GM/DL (6.4-8.2) Albumin 1.6 GM/DL (3.4-5.0) Nasal Screen MRSA (PCR) MRSA NOT DETECTED (NOT DETECT) Test 12/26/16 05:10 White Blood Count 10.5 TH/MM3 (4.0-11.0) Red Blood Count 3.14 MIL/MM3 (4.50-5.90) Hemoglobin 9.1 GM/DL (13.0-17.0) Hematocrit 27.5 % (39.0-51.0) Mean Corpuscular Volume 87.8 FL (80.0-100.0) Mean Corpuscular Hemoglobin 28.9 PG (27.0-34.0) Mean Corpuscular Hemoglobin 33.0 % Concent (32.0-36.0) Red Cell Distribution Width 20.7 % (11.6-17.2) Platelet Count 232 TH/MM3 (150-450) Mean Platelet Volume 7.3 FL (7.0-11.0) Sodium Level 132 MEQ/L (136-145) Potassium Level 3.7 MEQ/L (3.5-5.1) Chloride Level 96 MEQ/L (98-107) Carbon Dioxide Level 28.2 MEQ/L (21.0-32.0) Anion Gap 8 MEQ/L (5-15) Blood Urea Nitrogen 11 MG/DL (7-18) Creatinine 0.61 MG/DL (0.60-1.30) Estimat Glomerular Filtration 135 ML/MIN Rate (>89) Random Glucose 204 MG/DL (74-106) Calcium Level 7.6 MG/DL (8.5-10.1) (Betty Galindo) Result Diagram: 12/26/16 0510 12/26/16 0510 Microbiology Microbiology Date/Time Procedure Status Source Growth 12/24/16 12:42 Stool Occult Blood (DAINA) - Final Complete Stool Stool HEMOCCULT NEGATIVE Procedures 11/30/16 - he underwent left and right heart catheterization with the following findings: RCA-dominant, 10% lesion mid. PDA-patent with TALI III flow. LM-no significant obstructive lesions. LAD-transapical, no significant obstructive lesions. Diagonal-70% lesion ostial, small vessel. Left circumflex-proximal clot thrombus, TALI II flow with 2 OM branches, both patent. Procedure-PCI/BMS to proximal left circumflex in setting of NSTEMI. No left ventriculogram done due to concern for renal function. EF by echocardiogram 12/01/16 was 50-55%, mild concentric left ventricular hypertrophy, normal right ventricular size and function, no significant valvular disease, pulmonary hypertension or effusion noted. This was reexamined 87 due to concern for possible pericardial infusion. Findings included dynamic "pseudo-" outflow tract obstructive physiology due to concentric hypertrophy and hyperdynamic systolic function with mild mitral regurgitation, mild aortic valve regurgitation and small to moderate pericardial effusion, not hemodynamically significant. 12/02/16-left axillary arterial line placement. 12/02/16-intubation. 12/02/16 left subclavian central line placement. 12/02/1623-Dyannh-s-Port removal secondary to sepsis. 12/25/16-EUS followed by an EGD with esophageal stent placement 12/25/16-intubation 12/25/16-arterial line placement 12/26/16 -extubation . (Betty Galindo) Assessment and Plan Disease Oriented Problem List: (1) Edema (2) Obesity (3) Hyperlipidemia (4) Diabetes mellitus (5) Tobacco abuse (6) Esophageal carcinoma (7) SCC (squamous cell carcinoma) (8) Elevated troponin (9) NSTEMI (non-ST elevated myocardial infarction) (10) Rapid atrial fibrillation Symptom Scale: (1) Edema 0-10 Scale: Unable to quantify (2) Pre-syncope 0-10 Scale: Unable to quantify (3) Pain 0-10 Scale: Unable to quantify (4) Dysphagia 0-10 Scale: Unable to quantify Pertinent Non-Medical Issues Psychosocial:This is a 61-year-old male that was born in [place], [place] and moved to [place] when he was 15. He never attended high school after he moved to [place] nor obtained his GED. 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 He states that he did a lot of work with chemicals in auto [employer]. He was never in the . Spiritual: No spiritual affiliation. Legal: Has designated his daughter Ben La and his girlfriend Luly Bautista as joint healthcare surrogates. Ethical issues impacting care: None noted. . Important Contacts Daughter-Ben La Significant other-Luly Bautista , Mother-Orly Sky (Ama[place]), [place], [place] . Prognosis His prognosis is poor. He has undergone resection of a left parotid mass but due to its proximity, margins were found to be positive in the final pathology for poorly differentiated squamous cell carcinoma. . There was perineural invasion present and subcutaneous tissue invasion of the tumor, staged at T3. Prior to initiating chemotherapy and radiation it was found that he also had an esophageal mass causing stricture which was biopsied as an invasive adenocarcinoma. Status post EUS with EGD and possible stent placement with extensive bleeding requiring transfer to ICU due to continued intubation. Upon admission he had a myocardial infarction and underwent stent placement to the left circumflex with a bare metal stent. Additionally on this admission he had acute respiratory failure and has required intubation twice. During this admission he has had compromise or failure of the heart, the lungs, esophagus and potentially 2 different types of cancer. Chemotherapy and radiation is planned as an outpatient. CT scan showed liver cirrhosis. Labs showed a history of HCV. The possibilities for further compromise leading to possible multisystem organ failure are distinctly possible. . Code Status: Full Code Plan PLAN: Legal decision maker: Currently he is capacitated to make his own decisions however he has designated his daughter Ben and his significant other Luly Bautista as joint healthcare surrogates in case of his incapacity. Goals: Goals remain aggressive at this time. CODE STATUS: FULL CODE SYMPTOMS: Pain: Pain is controlled on PRN morphine and Roxicodone. His pain is mostly located in his abdomen and likely related to his esophageal tumor. Pain improved status post EGD/stent placement. Dysphasia: Has difficulty swallowing, worsening since his left parotid surgery. He is taking primarily only liquids. Will need continued therapy with speech as he is at significant risk of aspiration. Presyncope: Presyncopal on admission, he was significantly dehydrated. Currently having no lightheadedness or presyncopal symptoms. He is very tachycardic and is at risk of hemodynamic compromise from the rapid heart rate. He is being followed by electrophysiology and is currently receiving Cardizem IV per protocol, Cardizem 90 mg 4 times a day, digitoxin 0.25 mg daily, metoprolol, 25 mg 4 times a day. Blood pressure remains adequate at this time. Will require continued monitoring. Edema: He has 3+ pitting edema. This is compromised by his nutritional status with a very low albumin of 1.8. Would recommend a nutritional consult to assist in dietary modification. He has been converted to IV furosemide and is diuresing well. No significant weeping noted today but still remains with 3+ pitting edema. In summary this is an obese 61-year-old male with multiple comorbidities to include squamous cell carcinoma neck and invasive adenocarcinoma of the esophagus. His admission courses been complicated by NSTEMI, sepsis, encephalopathy, A. fib/RVR and respiratory failure requiring intubation. He is S/P EGD with esophageal stent placement and esophageal ultrasound for tumor staging, T3 N0 MX. He is pending chemotherapy and radiation as an outpatient. Palliative care will continue to follow the patient during hospital course as condition evolves, to assist patient/decision-maker with understanding of their medical conditions, weighing benefits/burdens of treatment options, for clarification of goals of treatment. Additionally will assist with any symptoms of palliative concern. . (Betty Galindo) Attestation To help prompt me to consider important information that might be impacting today's encounter and assessment, information from prior notes written by myself or my colleagues may have been "brought forward" into today's note. My signature on this note, however, is an attestation that I personally performed the exam, history, and/or decision-making noted today, and, unless otherwise indicated, the interactions with patient, family, and staff as well as the review of records all occurred today. I also attest that the listed assessment and stated plan reflect my best clinical judgment today based on the combination of historical information, prior notes, and today's exam/ interactions. When time spent is documented, it refers only to time spent today by the signer, or if indicated, combined time spent today by collaborating physician/nurse practitioner. (Betty Galindo) Collaborating MD Comments Chart reviewed. Case discussed with palliative care SPRINKLER FITTER HELPER. Above note reviewed and I concur. . (Buddy Paz MD) Betty Galindo Dec 26, 2016 13:55 Buddy Paz MD Feb 22, 2017 11:22
[2016-12-26] MEDS ORDERED: SODIUM CHLOR 0.9% 1000 ML INJ 1,000 ML IV ONE (14:00)
[2016-12-26] MEDS: SODIUM CHLOR 0.9% 1000 ML INJ 1,000 ML IV SCH (14:18)
--- NOTE | 2016-12-26 15:54 | PD.WCN.NOT ---
Wound Consult Description: L buttock , R buttock and medial gluteal cleft/ coccyx mixed etiology wounds. Communicated with: RMOAN Donovan , Shayne [facility] and Doctor Myles Recommendation: Cleanse buttock and gluteal cleft area gently with soap and water and leave open to air apply Calazime BID and PRN for gluteal cleft and bilateral buttock wounds Please obtain specialty bed Airapy or K 4 mattress Continue to turn patient every 2 hours or PRN for comfort. Additional Information: Patient seen on [address] [place] [address] for possible pressure injury to buttock area. Patient previously seen by wound care on 12/15 for wound evaluation of coccyx and left great toe. Patient assisted to L side with maximum assist from Shayne [facility] and adjusto writer operator. Bilateral buttock area and gluteal cleft are noted with erythematous and thickened moist skin that is blanchable at edges and non blanchable toward medial gluteal cleft. Within the area of erythema are 3 open wounds.Left buttock noted with non blanchable purple discoloration that is opened to full thickness skin loss area measuring ~3cm x ~0.6cm x <0.2cm of ~ 20 % yellow tissue and ~50% dark red non granulating red tissue, with some sanguinous drainage that is without odor, Wound appears to be pressure, and moisture related stage 3 Coccyx/Gluteal cleft noted with a moist full thickness skin loss, measuring 2.4cm x 0.4 cm x ~0.2cm of ~80% pink and ~20% pale yellow tissue in wound bed. Wound has an elipitical shape and is just below the coccyx indicating a moisture, pressure,and friction related injury without drainage or odor, that is a stage 3. Right buttock visualized with circular partial thickness skin loss area measuring ~1cm x ~1cm x <0.1cm ,that appears to be pressure related, indicating a Stage II pressure injury with no drainage/odor noted. Periwound of R buttock wound is noted with small area of non blanchable purple discoloration at 4 o'clock indicating DTI that measures ~ 1cm x ~1cm.All wounds on buttocks and coccyx were cleansed with NS and gauze. Calazime barrier cream was applied to wounds and left open to air with 1 ultrasorb placed underneath patient for added moisture absorption. Sarah Friedman [facility] Dec 26, 2016 15:54
--- NOTE | 2016-12-26 17:08 | HHI.GIFU ---
Subjective Remarks Pt resting in bed. denies abd pain. Objective Vitals I&O Vital Signs Date Time Temp Pulse Resp B/P Pulse Ox O2 Delivery O2 Flow Rate FiO2 12/26/16 15:56 97 Nasal Cannula 2.00 12/26/16 14:00 110 12/26/16 12:00 103 12/26/16 12:00 98.7 97 15 97 125/59 12/26/16 10:00 120 12/26/16 08:55 96 Nasal Cannula 2.00 12/26/16 08:40 96 Nasal Cannula 2 12/26/16 08:01 Nasal Cannula 40 12/26/16 08:00 100 Mechanical Ventilator 40 12/26/16 08:00 110 12/26/16 08:00 40 12/26/16 08:00 99.6 95 12 100 126/51 12/26/16 07:55 100 40 12/26/16 06:00 92 12/26/16 04:31 100 40 12/26/16 04:00 97.8 93 12 100 103/48 12/26/16 04:00 93 12/26/16 04:00 40 12/26/16 02:00 105 12/26/16 01:14 100 40 12/26/16 00:00 98.3 116 12 100 106/52 12/26/16 00:00 116 12/26/16 00:00 40 12/25/16 22:00 98.0 93 12 100 100/47 12/25/16 22:00 93 12/25/16 22:00 100 Mechanical Ventilator 40 12/25/16 21:25 100 100 12/25/16 21:20 100 40 12/25/16 21:00 139 112/58 12/25/16 21:00 131 15 117/63 100 Mechanical Ventilator 60 12/25/16 20:45 141 108/58 12/25/16 20:45 141 13 147/75 100 Mechanical Ventilator 60 12/25/16 20:30 141 13 142/69 100 Mechanical Ventilator 60 12/25/16 20:15 143 18 96/53 100 Mechanical Ventilator 60 12/25/16 20:15 143 99/53 12/25/16 20:10 100 60 12/25/16 20:00 143 21 107/56 100 Mechanical Ventilator 60 12/25/16 20:00 143 107/63 12/25/16 19:55 100 60 8/10/17 19:45 98.7 141 13 131/63 100 Mechanical Ventilator 60 12/25/16 19:45 141 131/67 12/25/16 17:56 145 12/25/16 17:17 93 21 I/O 12/25/16 12/25/16 12/25/16 12/26/16 12/26/16 12/26/16 07:00 15:00 23:00 07:00 15:00 23:00 Intake Total 745 ml 2048 ml 1630 ml 1894 ml Output Total 425 ml 1725 ml 425 ml 1500 ml Balance 320 ml 323 ml 1205 ml 394 ml Intake Oral 240 ml 0 ml 0 ml 50 ml Oral Supplement 237 ml IV Total 268 ml 748 ml 1630 ml 1844 ml Other 1300 ml Output Urine Total 225 ml 1575 ml 425 ml 1500 ml Emesis 200 ml Estimated Blood Loss 150 ml # Voids 1 4 # Bowel Movements 1 0 0 Laboratory Laboratory Tests Test 12/25/16 12/25/16 12/25/16 12/26/16 20:21 20:37 21:42 01:35 Blood Gas Puncture Site ART LINE Blood Gas Patient Temperature 98.6 Blood Gas HCO3 27 Blood Gas Base Excess 2.8 Blood Gas Oxygen Saturation 96 Arterial Blood pH 7.44 Arterial Blood Partial 40 Pressure CO2 Arterial Blood Partial 144 Pressure O2 Arterial Blood Oxygen Content 12.2 Arterial Blood 2.5 Carboxyhemoglobin Arterial Blood Methemoglobin 0.9 Blood Gas Hemoglobin 8.8 Oxygen Delivery Device VENTILATOR Blood Gas Ventilator Setting A/C12/600/+5PEEP Blood Gas Inspired Oxygen 60 White Blood Count 8.4 Red Blood Count 3.15 Hemoglobin 9.1 8.6 Hematocrit 27.6 26.4 Mean Corpuscular Volume 87.8 Mean Corpuscular Hemoglobin 28.8 Mean Corpuscular Hemoglobin 32.8 Concent Red Cell Distribution Width 20.6 Platelet Count 198 Mean Platelet Volume 7.4 Neutrophils (%) (Auto) 76.0 Lymphocytes (%) (Auto) 10.1 Monocytes (%) (Auto) 13.2 Eosinophils (%) (Auto) 0.4 Basophils (%) (Auto) 0.3 Neutrophils # (Auto) 6.4 Lymphocytes # (Auto) 0.8 Monocytes # (Auto) 1.1 Eosinophils # (Auto) 0.0 Basophils # (Auto) 0.0 CBC Comment DIFF FINAL Differential Comment Prothrombin Time 13.7 Prothromb Time International 1.2 Ratio Activated Partial 30.8 Thromboplast Time Sodium Level 131 Potassium Level 4.0 Chloride Level 95 Carbon Dioxide Level 29.6 Anion Gap 6 Blood Urea Nitrogen 13 Creatinine 0.61 Estimat Glomerular Filtration 135 Rate Random Glucose 162 Calcium Level 7.5 Total Bilirubin 0.6 Aspartate Amino Transf 40 (AST/SGOT) Alanine Aminotransferase 27 (ALT/SGPT) Alkaline Phosphatase 94 Total Protein 5.7 Albumin 1.6 Nasal Screen MRSA (PCR) MRSA NOT DETECTED Test 12/26/16 12/26/16 05:10 12:50 White Blood Count 10.5 Red Blood Count 3.14 Hemoglobin 9.1 8.9 Hematocrit 27.5 27.0 Mean Corpuscular Volume 87.8 Mean Corpuscular Hemoglobin 28.9 Mean Corpuscular Hemoglobin 33.0 Concent Red Cell Distribution Width 20.7 Platelet Count 232 Mean Platelet Volume 7.3 Sodium Level 132 Potassium Level 3.7 Chloride Level 96 Carbon Dioxide Level 28.2 Anion Gap 8 Blood Urea Nitrogen 11 Creatinine 0.61 Estimat Glomerular Filtration 135 Rate Random Glucose 204 Calcium Level 7.6 Date/Time Procedure Status Source Growth 12/24/16 12:42 Stool Occult Blood ([facility]) - Final Complete Stool Stool HEMOCCULT NEGATIVE Imaging Last Impressions Chest X-Ray 12/26/16 0600 Signed Impressions: Service Date/Time: Monday, December 26, 2016 03:45 - CONCLUSION: Improving pulmonary edema and effusions, now mild/small. Unchanged moderate cardiomegaly. Washington Beasley MD GI Procedure 12/25/16 0000 Signed Impressions: Service Date/Time: December 19:33 - CONCLUSION: Spot film as above. Everett Pollock MD FACR Barium Swallow X-Ray 12/20/16 0000 Signed Impressions: Service Date/Time: Tuesday, December 20, 2016 13:15 - CONCLUSION: 1. The distal half of the esophagus demonstrates irregular luminal narrowing consistent with the patient's history of esophageal adenocarcinoma. 2. Mild dilatation of the esophagus immediately proximal to the esophageal mass. However, there are no signs of obstruction. 3. Small hiatal hernia. Washington Marroquin MD Abdomen MRI 12/17/16 0000 Signed Impressions: Service Date/Time: Saturday, December 17, 2016 13:59 - CONCLUSION: 1. No acute finding is identified to explain the abdominal pain. 2. Stable thickening of the distal esophagus. There is a single mildly enlarged left gastric lymph node measuring 12 x 10 mm. 3. Moderate sized bilateral pleural effusions, left larger than right, with associated compressive atelectasis. Washington Marroquin MD Head CT 12/01/16 0000 Signed Impressions: Service Date/Time: Thursday, December 01, 2016 07:59 - CONCLUSION: 1. Questionable area of low attenuation left temporal lobe could be artifact versus less likely infarct. MRI may be warranted based on clinical history. 2. No midline shift or mass effect. 3. No intraparenchymal hemorrhage. Jagjit Tapia MD Brain MRI 12/01/16 0000 Signed Impressions: Service Date/Time: Thursday, December 01, 2016 12:07 - CONCLUSION: Normal examination. Barrett Rodriguez MD Abdomen X-Ray 12/01/16 0000 Signed Impressions: Service Date/Time: Thursday, December 01, 2016 16:48 - CONCLUSION: No evidence of obstruction. Feeding tube tip in the distal stomach. Barrett Rodriguez MD Abdomen/Pelvis CT 11/29/16 2356 Signed Impressions: Service Date/Time: Wednesday, November 30, 2016 01:35 - CONCLUSION: 1. Markedly abnormal appearance of the distal esophagus consistent with the history of esophageal carcinoma. 2. Atherosclerotic calcifications of the aorta and iliac vessels. 3. Cirrhotic appearance to the liver with a mildly nodular contour present. Erik Simon MD CT Angiography 11/29/16 [id number] Signed Impressions: Service Date/Time: Wednesday, November 30, 2016 01:35 - CONCLUSION: 1. No evidence for pulmonary embolism or pneumonia. 2. Abnormal appearance of the esophagus with and soft tissue consistent with the history of carcinoma. Erik Simon MD Physical Exam HEENT: Normocephalic; atraumatic; no jaundice. CHEST: CTA CARDIAC: Irregular rhythm. tachy +murmur ABDOMEN: Soft, obese, nondistended, nontender; no hepatosplenomegaly; bowel sounds x 4 EXTREMITIES: pitting edema BUE, BLE SKIN: Normal; no rash; no jaundice. 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 Worsening since Barium Swallow on 8/[address] following, pureed diet. Barium Swallow X-Ray 12/20/16--1. The distal half of the esophagus demonstrates irregular luminal narrowing consistent with the patient's history of esophageal adenocarcinoma. 2. Mild dilatation of the esophagus immediately proximal to the esophageal mass. However, there are no signs of obstruction. 3. Small hiatal hernia. Also bringing up small to moderate amount of bloody frothy secretions. s/p EUS with esophageal stent placement --> esophageal ca T3 N0 Mx, large friable mass with oozing, food and debris in esohagus, lengthy process to clean out. - Upper GIB. He was bringing up bloody frothy secretions- small to moderate amount, but has not had any further episodes. HH stable. PPI - Esophageal cancer. PET Scan (10/28/16)----> negative examination of the head and neck, findings characteristic of esophageal neoplasm. S/P EGD/Colonoscopy (11/20/16)----> There was a long stricture i the mid esophagus and distal esophagus, multiple biopsies were performed, the mucosa of the stomach appeared normal, duodenal mucosa showed no abnormalities in the entire duodenum, retroflexed views revealed a small hiatal hernia; nine sessile polyps ranging from 4-12 mm in size were found at the cecum, in the ascending colon, descending colon, sigmoid colon, and rectum; polypectomy was performed using snare cautery, moderate diverticulosis was noted in the left colon, retroflexed views revealed internal grade I hemorrhoids, a digital rectal exam was performed and revealed no abnormalities of the anus. Pathology revealed invasive adenocarcinoma- distal esophagus, descending colon polyp and rectosigmoid polyp both benign hyperplastic colonic polyp, no adenomatous change or malignancy is seen. S/P XRT Simulation. Plan is for erbitux, radiation as outpatient. EUS as above - Constipation. (+) BM. Miralax - Abnormal imaging of the liver on CT scan, consistent with cirrhosis. Abdomen/ Pelvis CT (11/29/16)----> 1. Markedly abnormal appearance of the distal esophagus consistent with the history of esophageal carcinoma. 2. Atherosclerotic calcifications of the aorta and iliac vessels. 3. Cirrhotic appearance to the liver with a mildly nodular contour present. Abdomen MRI 12/17/16--1. No acute finding is identified to explain the abdominal pain. 2. Stable thickening of the distal esophagus. There is a single mildly enlarged left gastric lymph node measuring 12 x 10 mm. 3. Moderate sized bilateral pleural effusions, left larger than right, with associated compressive atelectasis. Unclear if he has hx of cirrhosis. There is mention of hx of HCV in EMR, but patient has had undetectable viral load as far back as 2001. Pt does report he has a history of HCV and was successfully treated with Interferon/ribavirin in the past. Iron saturation 4.1%, Ferritin 124, Hepatitis C antibodies (+), viral load undetectable, TERRIE negative, ASMA < 20.0, AMA neg, Ceruloplasmin 40 and alpha 1 antitrypsin 298. Labs and imaging consistent with cirrhosis. Pt does not currently drink, but states that he was a heavy drinker in the past. LFT stable. - Afib with RVR. Rate controlled. Cardiology following. - Sepsis/Bacteremia/UTI. Urine and Bcx with Staphylococcus aureus. S/P removal of infusaport by GS (12/02). Rpt bcx no growth. Ancef----> 01/15. - AMS, Acute metabolic encephalopathy. Head CT (12/01/16)-----> 1. Questionable area of low attenuation left temporal lobe could be artifact versus less likely infarct. MRI may be warranted based on clinical history. 2. No midline shift or mass effect. 3. No intraparenchymal hemorrhage. Brain MRI (12/01/16 )----> Normal examination. Lethargic, but awakens and follows commands. Confused. - Resp. Failure. Chest X-Ray (12/05/16)----> 1. Cardiomegaly and findings of vascular congestion without overt failure. There has been no significant change when compared to the prior exam. S/P Extubation on 12/03. Solumerol, nebs, - NSTEMI, CAD. S/P left heart catheterization (11/30/16) with Dr. Murillo and this revealed RCA 10% lesion mid segment, mild calcifications left main, LAD with calcification from it's proximal segment to its midsegment however, with no significant obstructive lesions, The LAD is giving off to a diagonal which has a 70% lesion in its ostial segment, left circumflex artery with a proximal clot thrombus, S/P percutaneous coronary intervention/bare metal stent to proximal left circumflex. ASA and Plavix, as well as aggressive optimization of coronary artery disease. 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 S/P mohs surgery by a leveler in September of 2015 and shortly after this, developed a mass near the surgical area. S/P at [facility] with Dr. Valdovinos in June of 2016----> underwent extensive head and neck surgery involving a parotidectomy and radical neck dissection in September of 2016. Because of high risk features of local recurrence with perineural invasion and positive margins, it was recommended that he have concurrent chemoradiation therapy. He was evaluated by Dr. Cross for radiation and seen by Dr. Bell for oncology. PET Scan ()---> negative examination of the head and neck, findings characteristic of esophageal neoplasm. Direct visualization is recommended. - Hx HTN, Hyperlipidemia, DM. per attending. PLAN: - consider low residue soft diet - Monitor HH - Transfuse as necessary - Cont. PPI - Cont. Carafate - Cont. Miralax - Monitor labs - Supportive care - Patient seen and examined by Dr. Hanson and myself and this note is written on his behalf Amalia Cardoza Dec 26, 2016 17:08
--- NOTE | 2016-12-26 17:09 | EKG ---
Date Performed: 12/25/2016 Time Performed: 20:39:44 PTAGE: 61 years EKG: ATRIAL FLUTTER/TACHYCARDIA WITH RAPID VENTRICULAR RESPONSE INTRAVENTRICULAR CONDUCTION GEE Y INFERIOR MYOCARDIAL INFARCTION , OF INDETERMINATE AGE Compared to prior tracing no significant marks ge ABNORMAL ECG PREVIOUS TRACING : 12/17/2016 21.07 DOCTOR: Fidencio Chavarria Interpretating Date/Time 12/26/2016 17:07:53
[2016-12-26 19:32] LABS: HEMATOCRIT 26.7 % (39.0-51.0); REVIEW FLAG FINAL
[2016-12-26] MEDS ORDERED: AMIODARONE INJ 150 MG in DEXTROSE 5% IN WATER 100ML INJ 97 ML IV ONE ×2 (23:00)
[2016-12-27] VITALS (14 sets, daily range): BP systolic 113–135; BP diastolic 55–64; PULSE 111–134; RESP 19–24; TEMP 98.7–99.5; O2SAT 92–98
[2016-12-27] MEDS: METOPROLOL TARTRATE 25 MG TAB PO SCH ×4 (00:44→17:18)
[2016-12-27] MEDS: INSULIN NovoLIN REGULAR SUPPLEMENTAL SCALE SQ SCH ×4 (00:45→17:58)
[2016-12-27] MEDS: ceFAZolin 2 GM PREMIX 50 ML IV SCH ×3 (02:07→17:18)
[2016-12-27] MEDS: PHENYLEPHRINE 40 MG/D5W 496 ML ADMIX IV SCH ×2 (03:16)
[2016-12-27] MEDS: RESP: ALBUTEROL 2.5 MG/IPRATROPIUM 0.5 MG NEB (SCH) INH ×4 (03:44→19:45)
[2016-12-27] MEDS: SODIUM CHLOR 0.9% 1000 ML INJ 1,000 ML IV SCH ×2 (04:06→16:25)
[2016-12-27 04:50] LABS: HEMATOCRIT 24.3 % (39.0-51.0); MEAN CELL VOLUME 87.1 FL (80.0-100.0); MEAN CORPUSCULAR HEMOGLOBIN 29.8 PG (27.0-34.0); MEAN CORPUSCULAR HGB CONC 34.2 % (32.0-36.0); PLATELET COUNT 166 TH/MM3 (150-450); RED BLOOD COUNT 2.79 MIL/MM3 (4.50-5.90); RED CELL DISTRIBUTION WIDTH 20.8 % (11.6-17.2); REVIEW FLAG FINAL; WHITE BLOOD COUNT 8.7 TH/MM3 (4.0-11.0)
[2016-12-27 05:15] LABS: BICARBONATE 29.2 MEQ/L (21.0-32.0); MAGNESIUM 1.4 MG/DL (1.5-2.5); POTASSIUM 3.5 MEQ/L (3.5-5.1)
[2016-12-27] MEDS: AMIODARONE INJ 450 MG in D5W (EXCEL BAG) 241 ML IV SCH ×3 (06:31→21:54)
[2016-12-27] MEDS: DILTIAZEM 125 MG/NS 100 ML IV SCH ×4 (06:32→11:30)
[2016-12-27] MEDS: SUCRALFATE 1 GM/10 ML CUP PO SCH ×4 (06:46→20:27)
[2016-12-27] MEDS: CHLORHEXIDINE 0.12% (ORAL KIT) 15 ML CUP MT SCH ×2 (07:40→20:00)
[2016-12-27] MEDS: predniSONE 10 MG TAB PO SCH (08:03)
[2016-12-27] MEDS: RIFAMPIN 150 MG CAP PO SCH ×2 (08:03→20:27)
[2016-12-27] MEDS: MULTIVITAMIN TAB PO SCH (08:03)
[2016-12-27] MEDS: SODIUM CHLORIDE 0.9% FLUSH 10 ML FLUSH IV FLUSH SCH ×3 (08:04→20:27)
[2016-12-27] MEDS: FUROSEMIDE 20 MG/2 ML VIAL IV PUSH SCH (08:04)
[2016-12-27] MEDS: POLYETHYLENE GLYCOL 17 GM PKG PO SCH (08:04)
[2016-12-27] MEDS: DOCUSATE SODIUM 50 MG/SENNA 8.6 MG TAB PO SCH ×2 (08:05→20:27)
[2016-12-27] MEDS: THIAMINE HCL 100 MG TAB PO SCH (08:06)
[2016-12-27] MEDS: INSULIN DETEMIR 100 UNITS/ML VIAL SQ SCH ×2 (08:14→20:32)
[2016-12-27] MEDS: MORPHINE SULFATE 4 MG/ML INJ IV PUSH PRN ×3 (08:25→17:51)
--- NOTE | 2016-12-27 08:39 | HHI.PR ---
Subjective Remarks in no acute respiratory distress. still tachycardic. no abdominal pain, nausea or vomiting. no active GI bleed. d/w the RN at the bedside. Objective Vitals Vital Signs Date Time Temp Pulse Resp B/P Pulse Ox O2 Delivery O2 Flow Rate FiO2 12/27/16 07:49 94 Nasal Cannula 2.00 12/27/16 06:00 119 12/27/16 04:00 99.5 118 21 95 126/62 12/27/16 04:00 111 12/27/16 02:00 111 12/27/16 00:00 98.9 134 21 92 113/57 12/27/16 00:00 134 12/26/16 22:00 136 12/26/16 20:00 136 12/26/16 20:00 95 Nasal Cannula 3.00 12/26/16 20:00 98.7 120 21 100 122/48 12/26/16 19:48 97 Nasal Cannula 2.00 12/26/16 18:00 106 12/26/16 16:00 120 12/26/16 16:00 98.8 120 16 95 113/54 12/26/16 15:56 97 Nasal Cannula 2.00 12/26/16 14:00 110 12/26/16 12:00 103 12/26/16 12:00 98.7 97 15 97 125/59 12/26/16 10:00 120 12/26/16 08:55 96 Nasal Cannula 2.00 12/26/16 08:40 96 Nasal Cannula 2 I/O 12/26/16 12/26/16 12/26/16 12/27/16 12/27/16 12/27/16 07:00 15:00 23:00 07:00 15:00 23:00 Intake Total 1630 ml 1894 ml 2452 ml 1708 ml Output Total 425 ml 1500 ml 525 ml 475 ml Balance 1205 ml 394 ml 1927 ml 1233 ml Intake Oral 0 ml 50 ml 100 ml 100 ml IV Total 1630 ml 1844 ml 2352 ml 1608 ml Output Urine Total 425 ml 1500 ml 525 ml 475 ml # Bowel Movements 0 Result Diagram: 12/27/16 0420 12/27/16 0420 Imaging Last Impressions Chest X-Ray 12/26/16 0600 Signed Impressions: Service Date/Time: Monday, December 26, 2016 03:45 - CONCLUSION: Improving pulmonary edema and effusions, now mild/small. Unchanged moderate cardiomegaly. Washington Beasley MD GI Procedure 12/25/16 Signed Impressions: Service Date/Time: December 19:33 - CONCLUSION: Spot film as above. Everett Pollock MD FACR Barium Swallow X-Ray 12/20/16 Signed Impressions: Service Date/Time: Tuesday, December 20, 2016 13:15 - CONCLUSION: 1. The distal half of the esophagus demonstrates irregular luminal narrowing consistent with the patient's history of esophageal adenocarcinoma. 2. Mild dilatation of the esophagus immediately proximal to the esophageal mass. However, there are no signs of obstruction. 3. Small hiatal hernia. Washington Marroquin MD Abdomen MRI 12/17/16 Signed Impressions: Service Date/Time: Saturday, December 17, 2016 13:59 - CONCLUSION: 1. No acute finding is identified to explain the abdominal pain. 2. Stable thickening of the distal esophagus. There is a single mildly enlarged left gastric lymph node measuring 12 x 10 mm. 3. Moderate sized bilateral pleural effusions, left larger than right, with associated compressive atelectasis. Washington Marroquin MD Head CT 12/01/16 Signed Impressions: Service Date/Time: Thursday, December 01, 2016 07:59 - CONCLUSION: 1. Questionable area of low attenuation left temporal lobe could be artifact versus less likely infarct. MRI may be warranted based on clinical history. 2. No midline shift or mass effect. 3. No intraparenchymal hemorrhage. Jagjit Tapia MD Brain MRI 12/01/16 Signed Impressions: Service Date/Time: Thursday, December 01, 2016 12:07 - CONCLUSION: Normal examination. Barrett Rodriguez MD Abdomen X-Ray 12/01/16 Signed Impressions: Service Date/Time: Thursday, December 01, 2016 16:48 - CONCLUSION: No evidence of obstruction. Feeding tube tip in the distal stomach. Barrett Rodriguez MD Abdomen/Pelvis CT 11/29/16 1607 Signed Impressions: Service Date/Time: Wednesday, November 30, 2016 01:35 - CONCLUSION: 1. Markedly abnormal appearance of the distal esophagus consistent with the history of esophageal carcinoma. 2. Atherosclerotic calcifications of the aorta and iliac vessels. 3. Cirrhotic appearance to the liver with a mildly nodular contour present. Erik Simon MD CT Angiography 11/29/16 5800 Signed Impressions: Service Date/Time: Wednesday, November 30, 2016 01:35 - CONCLUSION: 1. No evidence for pulmonary embolism or pneumonia. 2. Abnormal appearance of the esophagus with and soft tissue consistent with the history of carcinoma. Erik Simon MD Objective Remarks GENERAL: in no acute distress but confused CARDIOVASCULAR: irregular rhythm and tachycardic. systolic murmur noted in LSB RESPIRATORY: Clear to auscultation. Breath sounds equal bilaterally. No wheezes , rales, or rhonchi. GASTROINTESTINAL: Abdomen soft, non-tender, nondistended. Normal, active bowel sounds MUSCULOSKELETAL: lower extremities with bilateral pedal edema. NEURO: awake, alert and less confused today; oriented to person, place and partly to time. Procedures central line/ arterial line placement intubation cardiac catheterization port removal EUS with esophageal stent placement Medications and IVs Current Medications Sodium Chloride (NS 1000 ml Inj) 1,000 ml @ 999 mls/hr BOLUS ONCE IV Last administered on 11/30/16 01:52; Start 11/30/16 at 00:00; Stop 11/30/16 at 01:00 ; Status DC Morphine Sulfate (Morphine Inj) 4 mg ONCE ONCE IV PUSH Last administered on 01:53; Start 11/30/16 at 01:00; Stop 11/30/16 at 01:01; Status DC Potassium Bicarb/ Potassium Chloride (K-Lyte Cl Eff) 75 meq ONCE ONCE PO Last administered on 11/30/16 01:53; Start 11/30/16 at 01:30; Stop 11/30/16 at 01:31; Status DC Iohexol (Omnipaque 350 Inj) 75 ml STK-MED ONCE IV ; Start 11/30/16 at 01:37; Stop 11/30/16 at 01:38; Status DC Calcium Gluconate 1 gm 1 gm ONCE ONCE IV PUSH Last administered on 11/30/16 02:58; Start 11/30/16 at 02:45; Stop 11/30/16 at 02:46; Status DC Sodium Chloride (NS 1000 ml Inj) 1,000 ml @ 100 mls/hr Q10H IV Last administered on 11/30/16 02:58; Start 11/30/16 at 02:33; Stop 11/30/16 at 13:54 ; Status DC Sodium Chloride (NS Flush) 2 ml UNSCH PRN IV FLUSH FLUSH AFTER USING IV ACCESS Last administered on 12/24/16 09:59; Start 11/30/16 at 02:45 Sodium Chloride (NS Flush) 2 ml BID IV FLUSH Last administered on 12/27/16 08: 04; Start 11/30/16 at 09:00 Ondansetron HCl (Zofran Inj) 4 mg Q6H PRN IVP NAUSEA OR VOMITING; Start at 02:45; Stop 11/30/16 at 13:51; Status DC Acetaminophen (Tylenol) 650 mg Q6H PRN PO FEVER/PAIN SCALE 1 TO 2; Start at 02:45; Stop 11/30/16 at 13:54; Status DC Hydromorphone HCl (Dilaudid Pf Inj) 1 mg Q3H PRN IV Pain 6-10 Last administered on 12/04/16 06:52; Start 11/30/16 at 02:45; Stop 12/04/16 at 09:25 ; Status DC Oxycodone HCl (Roxicodone) 5 mg Q4H PRN PO PAIN SCALE 3 TO 5 Last administered on 12/26/16 18:20; Start 11/30/16 at 02:45 Senna/Docusate Sodium (Rere-Colace) 1 tab BID PO Last administered on 08:05; Start 11/30/16 at 09:00 Magnesium Hydroxide (Milk Of Magnesia Liq) 30 ml Q12H PRN PO MILD - MODERATE CONSTIPATION; Start 11/30/16 at 02:45 Sennosides (Senokot) 17.2 mg Q12H PRN PO MODERATE - SEVERE CONSTIPATION; Start 11/30/16 at 02:45 Bisacodyl (Dulcolax Supp) 10 mg DAILY PRN RECTAL SEVERE CONSITIPATION; Start at 02:45 Lactulose (Lactulose Liq) 30 ml DAILY PRN PO SEVERE CONSITIPATION; Start at 02:45 Pantoprazole Sodium (Protonix Inj) 40 mg Q12H IV PUSH Last administered on 12/12 21:10; Start 11/30/16 at 09:00; Stop 12/13/16 at 08:25; Status DC Miscellaneous Information Patient in critical care unit? Ass... Q361D .XX ; Start 11/30/16 at 05:15 Chlorhexidine Gluconate (Chlorhexidine 2% Cloth) 3 pack DAILY@04 TOPICAL Last administered on 12/05/16 04:00; Start 12/01/16 at 04:00; Stop 12/05/16 at 04:01 ; Status DC Chlorhexidine Gluconate (Chlorhexidine 2% Cloth) 3 pack UNSCH PRN TOPICAL HYGIENIC CARE; Start 11/30/16 at 05:15; Stop 12/05/16 at 05:12; Status DC Aspirin 81 mg 81 mg ONCE ONCE PO Last administered on 11/30/16 12:19; Start 11/30/16 at 12:00; Stop 11/30/16 at 12:01; Status DC Heparin Sodium/ Dextrose (Heparin-D5W Inj) 250 ml @ 0 mls/hr TITRATE IV Last administered on 11/30/16 12:21; Start 11/30/16 at 12:15; Stop 11/30/16 at 13:49 ; Status DC Heparin Sodium (Porcine) (Heparin Inj) 5,000 units UNSCH PRN IV aPTT less than 25; Start 11/30/16 at 12:15; Stop 11/30/16 at 13:49; Status DC Heparin Sodium (Porcine) (Heparin Inj) 2,500 units UNSCH PRN IV aPTT 25 to 39; Start 11/30/16 at 12:15; Stop 11/30/16 at 13:49; Status DC Heparin Sodium (Porcine) 4000 units 4,000 units ONCE ONCE IV Last administered on 11/30/16 12:19; Start 11/30/16 at 12:15; Stop 11/30/16 at 12:16 ; Status DC Heparin Sodium/ Sodium Chloride (Heparin-NS/Pf Inj) 500 ml @ As Directed STK- MED ONCE .ROUTE Last administered on 11/30/16 12:36; Start 11/30/16 at 12:36; Stop 11/30/16 at 12:37; Status DC Midazolam HCl (Versed Inj) 2 mg STK-MED ONCE .ROUTE Last administered on 12:36; Start 11/30/16 at 12:36; Stop 11/30/16 at 12:37; Status DC Fentanyl Citrate (fentaNYL INJ) 100 mcg STK-MED ONCE .ROUTE Last administered on 11/30/16 12:36; Start 11/30/16 at 12:36; Stop 11/30/16 at 12:37; Status DC Dextrose (D50w (Syr) Inj) 50 ml STK-MED ONCE .ROUTE Last administered on 12:53; Start 11/30/16 at 12:53; Stop 11/30/16 at 12:54; Status DC Phenylephrine HCl (Neosynephrine Inj) 40 mg STK-MED ONCE .ROUTE Last administered on 11/30/16 13:04; Start 11/30/16 at 13:04; Stop 11/30/16 at 13:05 ; Status DC Clopidogrel Bisulfate 600 mg 600 mg STK-MED ONCE .ROUTE ; Start 11/30/16 at 13: 25; Stop 11/30/16 at 13:26; Status DC Sodium Chloride (NS 1000 ml Inj) 1,000 ml @ 125 mls/hr Q8H IV Last administered on 11/30/16 21:51; Start 11/30/16 at 13:42; Stop 11/30/16 at 17:41 ; Status DC Acetaminophen (Tylenol) 325 mg Q4H PRN PO PAIN SCALE 1 TO 2 Last administered on 12/13/16 17:13; Start 11/30/16 at 13:45 Aspirin (Aspirin Chew) 81 mg DAILY PO Last administered on 12/21/16 08:29; Start 11/30/16 at 13:45; Stop 12/22/16 at 09:42; Status DC Clopidogrel Bisulfate (Plavix) 600 mg ONCE ONCE PO ; Start 11/30/16 at 13:45; Stop 11/30/16 at 13:47; Status DC Clopidogrel Bisulfate (Plavix) 75 mg DAILY PO Last administered on 12/25/16 08 :06; Start 12/01/16 at 09:00; Status Hold Miscellaneous Information 1 ONCE ONCE XX ; Start 11/30/16 at 13:45; Stop at 13:49; Status DC Atropine Sulfate (Atropine Inj) 0.5 mg UNSCH PRN IV VAGAL REPONSE; Start at 13:45 Ondansetron HCl (Zofran Inj) 4 mg Q4H PRN IV NAUSEA Last administered on 22:41; Start 11/30/16 at 13:45 Metoprolol Tartrate (Lopressor) 12.5 mg BID PO Last administered on 12/01/16 09:51; Start 11/30/16 at 21:00; Stop 12/14/16 at 16:12; Status DC Atorvastatin Calcium (Lipitor) 10 mg HS PO Last administered on 12/02/16 21:22 ; Start 11/30/16 at 21:00; Stop 12/12/16 at 09:02; Status DC Miscellaneous Information HOLD METFORMIN FOR... Q24H .XX ; Start 11/30/16 at 15: 00; Stop 12/02/16 at 14:59; Status DC Potassium Chloride (KCl 20 Meq Premix Inj) 100 ml @ 50 mls/hr Q2H IV Last administered on 11/30/16 19:24; Start 11/30/16 at 18:00; Stop 11/30/16 at 21:59 ; Status DC Sodium Chloride (NS Flush) 5 ml Q21D IV FLUSH Last administered on 12/21/16 17: 19; Start 11/30/16 at 18:00 Heparin Sodium (Porcine) (Heparin Central Flush) 500 units Q21D IV FLUSH Last administered on 11/30/16 18:04; Start 11/30/16 at 18:00 Sodium Chloride (NS Flush) 5 ml UNSCH PRN IV FLUSH SEE LABEL COMMENTS; Start at 18:00 Heparin Sodium (Porcine) (Heparin Central Flush) 250 units UNSCH PRN IV FLUSH FLUSH AFTER USING IV ACCESS; Start 11/30/16 at 18:00 Lorazepam (Ativan Inj) 0.5 mg ONCE ONCE IV PUSH Last administered on 06:37; Start 12/01/16 at 06:30; Stop 12/01/16 at 06:31; Status DC Lorazepam 0.5 mg 0.5 mg ONCE ONCE IV Last administered on 12/01/16 07:43; Start 12/01/16 at 07:45; Stop 12/01/16 at 07:46; Status DC Potassium Chloride 30 meq/ Sodium Chloride 115 ml @ 38.333 mls/ hr Q3H IV- CENTRAL Last administered on 12/01/16 12:43; Start 12/01/16 at 08:30; Stop at 14:29; Status DC Vancomycin HCl 2100 mg/Sodium Chloride 521 ml @ 250 mls/hr ONCE ONCE IV Last administered on 12/01/16 12:43; Start 12/01/16 at 12:00; Stop 12/01/16 at 14:06 ; Status DC Pharmacy Profile Note 0 ml @ 0 mls/hr UNSCH OTHER ; Start 12/01/16 at 10:30; Status UNV Pharmacy Profile Note 0 ml @ 0 mls/hr UNSCH OTHER ; Start 12/01/16 at 11:00; Stop 12/01/16 at 13:07; Status DC Vancomycin HCl 1250 mg/Sodium Chloride 262.5 ml @ 262.5 mls/ hr Q24H IV ; Start 12/02/16 at 09:00; Stop 12/02/16 at 09:00; Status DC Ceftriaxone Sodium 2000 mg/ Sodium Chloride 100 ml @ 200 mls/hr Q24H IV ; Start 12/01/16 at 14:00; Stop 12/01/16 at 16:10; Status DC Thiamine HCl/ Sodium Chloride (Thiamine Inj/NS Inj) 101 ml @ 101 mls/hr DAILY IV Last administered on 12/01/16 14:09; Start 12/01/16 at 13:00; Stop at 08:28; Status DC Flumazenil (Romazicon Inj) 0.2 mg Q1M PRN IV PUSH SEE LABEL COMMENTS; Start at 13:00 Lorazepam (Ativan) 1 mg Q4H PRN PO CIWA 8 - 10; Start 12/01/16 at 13:00; Stop 12/04/16 at 09:29; Status DC Lorazepam (Ativan Inj) 1 mg Q4H PRN IV PUSH CIWA 8 - 10 Last administered on 21:52; Start 12/01/16 at 13:00; Stop 12/04/16 at 09:29; Status DC Lorazepam (Ativan) 2 mg Q2H PRN PO CIWA 11-14; Start 12/01/16 at 13:00; Stop at 09:29; Status DC Lorazepam (Ativan Inj) 2 mg Q2H PRN IV PUSH CIWA 11-14 Last administered on 04:37; Start 12/01/16 at 13:00; Stop 12/04/16 at 09:29; Status DC Lorazepam (Ativan Inj) 2 mg Q1H PRN IV PUSH CIWA 15-20; Start 12/01/16 at 13:00 ; Stop 12/04/16 at 09:29; Status DC Lorazepam 2 mg 2 mg Q15M PRN IV PUSH CIWA > 20; Start 12/01/16 at 13:00; Stop 12/04/16 at 09:29; Status DC Sodium Chloride 1,000 ml @ 999 mls/hr BOLUS ONCE IV Last administered on 12/01 14:09; Start 12/01/16 at 13:00; Stop 12/01/16 at 14:06; Status DC Sodium Chloride (NS 1000 ml Inj) 1,000 ml @ 999 mls/hr BOLUS ONCE IV Last administered on 12/01/16 14:09; Start 12/01/16 at 13:00; Stop 12/01/16 at 14:06 ; Status DC Morphine Sulfate 8 mg 8 mg STK-MED ONCE .ROUTE Last administered on 12/01/16 14:06; Start 12/01/16 at 14:04; Stop 12/01/16 at 14:05; Status DC Dexmedetomidine HCl/Sodium Chloride (Precedex Inj/NS Inj) 52 ml @ 0 mls/hr TITRATE IV ; Start 12/01/16 at 14:30; Stop 12/03/16 at 07:50; Status DC Albuterol/ Ipratropium (Duoneb Neb) 1 ampule Q6HR NEB NEB Last administered on 12/05/16 15:58; Start 12/01/16 at 16:00; Stop 12/05/16 at 16:00; Status DC Albuterol/ Ipratropium 1 ampule 1 ampule Q2HR NEB PRN NEB SHORTNESS OF BREATH Last administered on 12/17/16 01:21; Start 12/01/16 at 14:30 Cefazolin Sodium/ Dextrose 50 ml @ 100 mls/hr Q8H IV Last administered on 12/03 08:27; Start 12/01/16 at 18:00; Stop 12/06/16 at 09:11; Status DC Pharmacy Profile Note 0 ml @ 0 mls/hr UNSCH OTHER ; Start 12/01/16 at 16:15; Stop 12/03/16 at 10:51; Status DC Sodium Chloride (NS 1000 ml Inj) 1,000 ml @ 50 mls/hr Q20H IV Last administered on 12/04/16 05:40; Start 12/01/16 at 16:30; Stop 12/04/16 at 09:25 ; Status DC Acetaminophen 650 mg 650 mg Q6H PRN PO FEVER Last administered on 12/02/16 01 :07; Start 12/01/16 at 17:30 Vancomycin HCl/ Sodium Chloride (Vancomycin Inj/ NS 500 ml Inj) 521 ml @ 250 mls/hr Q18H IV Last administered on 12/02/16 05:36; Start 12/02/16 at 06:00; Stop 12/02/16 at 11:38; Status DC Miscellaneous Information SPECIFIC LAB TO BE DRAWN:VANCO TROUGH DATE TO... ONCE ONCE .XX ; Start 12/03/16 at 17:45; Stop 12/03/16 at 17:46; Status Cancel Sodium Chloride (NS 1000 ml Inj) 1,000 ml @ 999 mls/hr BOLUS ONCE IV Last administered on 12/02/16 06:30; Start 12/02/16 at 06:30; Stop 12/02/16 at 07:30 ; Status DC Methylprednisolone Sodium Succinate (SoluMEDROL INJ) 125 mg ONCE STAT IV PUSH Last administered on 12/02/16 07:14; Start 12/02/16 at 06:52; Stop 12/02/16 at 06:59; Status DC Methylprednisolone Sodium Succinate (SoluMEDROL INJ) 60 mg Q8HR IV PUSH Last administered on 12/05/16 05:17; Start 12/02/16 at 14:00; Stop 12/05/16 at 09:00 ; Status DC Etomidate (Amidate Inj) 20 mg STK-MED ONCE .ROUTE Last administered on 08:07; Start 12/02/16 at 07:29; Stop 12/02/16 at 07:30; Status DC Midazolam HCl (Versed Inj) 5 mg STK-MED ONCE .ROUTE Last administered on 08:07; Start 12/02/16 at 07:29; Stop 12/02/16 at 07:30; Status DC Rocuronium [place] (Zemuron Inj) 50 mg STK-MED ONCE .ROUTE Last administered on 12/02/16 08:08; Start 12/02/16 at 07:30; Stop 12/02/16 at 07:31; Status DC Enoxaparin Sodium (Lovenox Inj) 40 mg Q24H SQ Last administered on 12/20/16 09: 04; Start 12/02/16 at 09:00; Stop 12/20/16 at 09:13; Status DC Chlorhexidine Gluconate 15 ml 15 ml BID@08,20 MT Last administered on 12/24/16 20:00; Start 12/02/16 at 08:00; Stop 12/25/16 at 21:39; Status DC Propofol 100 ml @ 0 mls/hr TITRATE IV Last administered on 12/02/16 19:59; Start 12/02/16 at 08:00; Stop 12/03/16 at 07:50; Status DC Fentanyl Citrate (fentaNYL DRIP) 250 ml @ 0 mls/hr TITRATE IV Last administered on 12/03/16 04:05; Start 12/02/16 at 08:00; Stop 12/04/16 at 09:25 ; Status DC Metoprolol Tartrate 2.5 mg 2.5 mg Q6H PRN IV PUSH HR >110 Last administered on 12/20/16 18:38; Start 12/02/16 at 08:15; Stop 12/22/16 at 09:53; Status DC Multivitamins/ Thiamine HCl/ Folic Acid/Sodium Chloride (Mvi-12 Inj/ Thiamine Inj/ Folvite Inj/1/2 NS 500 ml Inj) 511.2 ml @ 125 mls/hr DAILY IV Last administered on 12/04/16 09:21; Start 12/02/16 at 09:00; Stop 12/05/16 at 09:00 ; Status DC Sodium Bicarbonate (Sodium Bicarbonate 8.4% Inj) 50 meq STK-MED ONCE .ROUTE ; Start 12/02/16 at 09:06; Stop 12/02/16 at 09:07; Status DC Sodium Bicarbonate 50 meq 50 meq NOW ONCE IV PUSH Last administered on 11:16; Start 12/02/16 at 09:45; Stop 12/02/16 at 09:46; Status DC Vasopressin/ Dextrose (Pitressin Inj/ D5W 100 ml Inj) 100 ml @ 4.5 mls/hr [id number] IV Last administered on 12/03/16 04:17; Start 12/02/16 at 11:04; Stop 12/06/16 at 07:32; Status DC Sodium Bicarbonate (Sodium Bicarbonate 8.4% Inj) 50 meq ONCE ONCE IV PUSH Last administered on 12/02/16 11:38; Start 12/02/16 at 11:15; Stop 12/02/16 at 11:22; Status DC Rocuronium [place] 50 mg 50 mg BOLUS ONCE IV Last administered on 12/02/16 11 :39; Start 12/02/16 at 11:15; Stop 12/02/16 at 11:22; Status DC Sodium Bicarbonate 50 ml @ As Directed STK-MED ONCE .ROUTE Last administered on 12/02/16 15:53; Start 12/02/16 at 11:06; Stop 12/02/16 at 11:07; Status DC Vancomycin HCl 2000 mg/Sodium Chloride 520 ml @ 250 mls/hr Q18H IV Last administered on 12/02/16 23:46; Start 12/03/16 at 00:00; Stop 12/03/16 at 10:51 ; Status DC Norepinephrine Bitartrate (Levophed-Dextrose Drip) 250 ml @ 0 mls/hr TITRATE IV Last administered on 12/03/16 04:05; Start 12/02/16 at 15:15; Stop 12/08/16 at 10:23; Status DC Terbutaline Sulfate 1 mg 1 mg UNSCH PRN SQ For Extravasation; Start 12/02/16 at 15:15 Sodium Bicarbonate/ Sterile Water (Sodium Bicarbonate 8.4% Inj/Sterile Water For Inj) 1,000 ml @ 150 mls/hr Q6H40M IV Last administered on 12/03/16 04:16 ; Start 12/02/16 at 16:00; Stop 12/03/16 at 07:49; Status DC Iohexol (OMNIPAQUE 350 INJ (Sen[employer])) 100 ml STK-MED ONCE OTHER ; Start at 12:30; Stop 12/02/16 at 15:48; Status DC Lidocaine HCl (Xylocaine 1% Inj (50 ml)) 50 ml STK-MED ONCE .ROUTE ; Start 12/02 at 19:06; Stop 12/02/16 at 19:07; Status DC Dextrose (D50w (Vial) Inj) 50 ml UNSCH PRN IV HYPOGLYCEMIA-SEE COMMENTS; Start 12/02/16 at 22:30 Glucagon (Glucagon Inj) 1 mg UNSCH PRN OTHER HYPOGLYCEMIA-SEE COMMENTS; Start 12/02/16 at 22:30 Insulin Aspart 1 1 Q4HR SQ Last administered on 12/14/16 04:00; Start at 00:00; Stop 12/14/16 at 08:16; Status DC Midazolam HCl (Versed 100 Mg/ ml Inj) 100 ml @ 0 mls/hr TITRATE IV ; Start 12/03 at 08:00; Stop 12/04/16 at 09:25; Status DC Polyethylene Glycol (Miralax) 17 gm DAILY PO Last administered on 12/27/16 08: 04; Start 12/04/16 at 09:00 Bumetanide (Bumex Inj) 1 mg STK-MED ONCE .ROUTE ; Start 12/03/16 at 11:46; Stop 12/03/16 at 11:47; Status DC Bumetanide 1 mg 1 mg NOW ONCE IV PUSH ; Start 12/03/16 at 15:00; Stop 12/03/16 at 15:01; Status DC Cefepime HCl/ Sodium Chloride (Maxipime Inj/NS Inj) 100 ml @ 200 mls/hr Q8H IV Last administered on 12/06/16 08:16; Start 12/03/16 at 17:00; Stop 12/06/16 at 09:08; Status DC Bumetanide 1 mg 1 mg ONCE ONCE IV PUSH Last administered on 12/04/16 10:00; Start 12/04/16 at 09:30; Stop 12/04/16 at 09:32; Status DC Potassium Chloride (KCl 40 Meq Premix Inj) 100 ml @ 25 mls/hr Q4H IV ; Start at 10:00; Stop 12/04/16 at 17:59; Status DC Morphine Sulfate 2 mg 2 mg Q3H PRN IV PUSH pain 5-10 Last administered on t 05:16; Start 12/04/16 at 09:30; Stop 12/05/16 at 09:01; Status DC Potassium Chloride 100 ml @ 50 mls/hr Q2H PRN IV For Potassium 2.8 - 3.2 mEq/ L Last administered on 12/04/16t 21:17; Start 12/04/16 at 09:30; Stop 12/16/16 at 07:44; Status DC Potassium Chloride (KCl 20 Meq Premix Inj) 100 ml @ 50 mls/hr Q2H PRN IV For Potassium 2.8 - 3.2 mEq/L; Start 12/04/16 at 09:30; Stop 12/16/16 at 07:44; Status DC Potassium Bicarb/ Potassium Chloride 50 meq 50 meq UNSCH PRN PO For Potassium 3.3 - 3.5 mEq/L; Start 12/04/16 at 09:30; Stop 12/16/16 at 07:44; Status DC Potassium Chloride 100 ml @ 25 mls/hr UNSCH PRN IV For Potassium 3.3 - 3.5 mEq /L; Start 12/04/16 at 09:30; Stop 12/16/16 at 07:44; Status DC Potassium Chloride 100 ml @ 50 mls/hr Q2H PRN IV For Potassium 3.3 - 3.5 mEq/L ; Start 12/04/16 at 09:30; Stop 12/16/16 at 07:44; Status DC Magnesium Sulfate/ Sodium Chloride (Magnesium Sulfate Inj/NS Inj) 100 ml @ 50 mls/hr UNSCH PRN IV For Magnesium 0.9 - 1.1 mg/dL; Start 12/04/16 at 09:30; Stop 12/16/16 at 07:44; Status DC Magnesium Oxide 800 mg 800 mg UNSCH PRN PO For Magnesium 1.2 - 1.6 mg/dL; Start 12/04/16 at 09:30; Stop 12/16/16 at 07:44; Status DC Magnesium Sulfate/ Sodium Chloride (Magnesium Sulfate Inj/NS Inj) 100 ml @ 50 mls/hr UNSCH PRN IV For Magnesium 1.2 - 1.6 mg/dL; Start 12/04/16 at 09:30; Stop 12/16/16 at 07:44; Status DC Potassium Phosphate 2000 mg 2,000 mg Q4H PRN PO For Phosphorus < 2.5 mg/dL; Start 12/04/16 at 09:30; Stop 12/16/16 at 07:45; Status DC Sodium Phosphate/ Sodium Chloride (Sodium Phosphate Inj/NS 250 ml Inj) 250 ml @ 42 mls/hr UNSCH PRN IV For Phosphorus < 2.5 mg/dL Last administered on 06:41; Start 12/04/16 at 09:30; Stop 12/16/16 at 07:45; Status DC Potassium Phosphate 2000 mg 2,000 mg UNSCH PRN PO/TUBE SEE LABEL COMMENTS; Start 12/04/16 at 09:30; Stop 12/16/16 at 07:45; Status DC Potassium Phosphate/Sodium Chloride (Potassium Phosphate Inj/NS 250 ml Inj) 260 ml @ 42 mls/hr UNSCH PRN IV SEE LABEL COMMENTS; Start 12/04/16 at 09:30; Stop 12/16/16 at 07:45; Status DC Potassium Bicarb/ Potassium Chloride (K-Lyte Cl Eff) 25 meq ONCE ONCE PO ; Start 12/04/16 at 09:30; Stop 12/04/16 at 09:42; Status DC Bumetanide 1 mg 1 mg ONCE ONCE IV PUSH Last administered on 12/04/16 12:32; Start 12/04/16 at 12:00; Stop 12/04/16 at 12:01; Status DC Calcium Gluconate/ Sodium Chloride (Calcium Gluconate Inj/NS Inj) 110 ml @ 110 mls/hr ONCE ONCE IV Last administered on 12/05/16 10:29; Start 12/05/16 at 09 :30; Stop 12/05/16 at 10:29; Status DC Methylprednisolone Sodium Succinate (SoluMEDROL INJ) 40 mg Q12HR IV PUSH Last administered on 12/10/16 20:09; Start 12/05/16 at 09:00; Stop 12/11/16 at 09:04 ; Status DC Thiamine HCl (Vitamin B1) 100 mg DAILY PO Last administered on 12/27/16 08:06 ; Start 12/05/16 at 09:00 Multivitamins (Theragran) 1 tab DAILY PO Last administered on 12/27/16 08:03; Start 12/05/16 at 09:00 Folic Acid (Folate) 1 mg DAILY PO Last administered on 12/25/16 08:07; Start 12/05/16 at 09:00; Status Hold Morphine Sulfate (Morphine Inj) 2 mg Q2H PRN IV PUSH pain 5-10 Last administered on 12/17/16 01:20; Start 12/05/16 at 10:30; Stop 12/17/16 at 10:52; Status DC Albuterol/ Ipratropium 1 ampule 1 ampule Q4HR NEB NEB Last administered on 03:40; Start 12/06/16 at 08:00; Stop 12/10/16 at 08:00; Status DC Sodium Chloride (1/2 NS 1000 ml Inj) 1,000 ml @ 125 mls/hr Q8H IV Last administered on 12/07/16 21:33; Start 12/06/16 at 07:30; Stop 12/08/16 at 10:23 ; Status DC Rifampin 300 mg 300 mg Q12HR PO Last administered on 12/27/16 08:03; Start at 09:15; Stop 01/15/17 at 23:00 Cefazolin Sodium/ Dextrose (Ancef 2 Gm Premix) 50 ml @ 100 mls/hr Q8H IV Last administered on 12/27/16 02:07; Start 12/06/16 at 10:00; Stop 01/15/17 at 23:00 Levofloxacin (Levaquin) 750 mg Q24H PO Last administered on 12/12/16 08:58; Start 12/06/16 at 10:00; Stop 12/13/16 at 09:59; Status DC Insulin Detemir (Levemir Inj) 5 units Q12HR SQ Last administered on 12/13/16 21:29; Start 12/07/16 at 09:00; Stop 12/14/16 at 08:17; Status DC Methylnaltrexone [place] (Relistor Inj) 12 mg ONCE ONCE SQ Last administered on 12/07/16 16:58; Start 12/07/16 at 15:00; Stop 12/07/16 at 15:11; Status DC Metoprolol Tartrate (Lopressor Inj) 2.5 mg ONCE ONCE IV PUSH Last administered on 12/08/16 15:15; Start 12/08/16 at 15:00; Stop 12/08/16 at 15:01 ; Status DC Diltiazem HCl (Cardizem Inj) 10 mg ONCE ONCE IV ; Start 12/08/16 at 15:15; Stop 12/08/16 at 16:09; Status DC Metoprolol Tartrate (Lopressor) 50 mg Q12HR PO Last administered on 12/13/16 20:52; Start 12/08/16 at 21:00; Stop 12/14/16 at 09:12; Status DC Diltiazem HCl (Cardizem) 60 mg Q6H PO Last administered on 12/18/16 17:25; Start 12/09/16 at 05:00; Stop 12/18/16 at 18:39; Status DC Lorazepam (Ativan Inj) 1 mg Q4H PRN IV PUSH ANXIETY AND/OR AGITATION Last administered on 12/19/16 01:59; Start 12/09/16 at 15:15 Haloperidol Lactate (Haldol Inj) 2 mg Q8H PRN IM AGITATION AND/OR HALLUCINATION ; Start 12/10/16 at 17:00 Methylprednisolone Sodium Succinate (SoluMEDROL INJ) 20 mg Q12HR IV PUSH Last administered on 12/13/16 20:50; Start 12/11/16 at 21:00; Stop 12/13/16 at 22:00 ; Status DC Atorvastatin Calcium (Lipitor) 40 mg HS PO Last administered on 12/24/16 21:00 ; Start 12/12/16 at 21:00; Status Hold Sodium Chloride (NS Flush) See Protocol DAILY IV FLUSH Last administered on 08:04; Start 12/13/16 at 09:00 Sodium Chloride (NS Flush) See Protocol UNSCH PRN IV FLUSH SEE PROTOCOL TABLE; Start 12/12/16 at 17:00 Heparin Sodium (Porcine) (Heparin Central Flush) See Protocol DAILY IV FLUSH Last administered on 12/27/16 08:05; Start 12/13/16 at 09:00 Heparin Sodium (Porcine) (Heparin Central Flush) See Protocol UNSCH PRN IV FLUSH SEE PROTOCOL TABLE; Start 12/12/16 at 17:00 Sodium Chloride UNSCH PRN IV FLUSH SEE PROTOCOL TABLE Last administered on 12/19 01:59; Start 12/12/16 at 17:00 Sodium Chloride (NS 250 ml Inj) 250 ml @ 15 mls/hr ONCE ONCE IV Last administered on 12/13/16 09:34; Start 12/13/16 at 08:15; Stop 12/14/16 at 00:54 ; Status DC Acetaminophen (Tylenol) 650 mg Q4H PRN PO SEE LABEL COMMENTS; Start 12/13/16 at 08:15; Stop 12/13/16 at 12:16; Status DC Diphenhydramine HCl (Benadryl) 25 mg Q4H PRN PO SEE LABEL COMMENTS; Start 12/13 at 08:15; Stop 12/13/16 at 12:16; Status Cancel Prednisone (Deltasone) 40 mg DAILY PO Last administered on 12/16/16 08:53; Start 12/14/16 at 09:00; Stop 12/16/16 at 09:28; Status DC Pantoprazole Sodium (Protonix) 40 mg Q12HR PO Last administered on 12/22/16 09: 01; Start 12/13/16 at 09:00; Stop 12/22/16 at 09:49; Status DC Diphenhydramine HCl (Benadryl) 25 mg Q4H PRN PO SEE LABEL COMMENTS; Start 12/13 at 17:15; Stop 12/13/16 at 21:16; Status DC Insulin Aspart (NovoLOG SUPPLEMENTAL SCALE) 1 ACHS SLIDING SCALE SQ Last administered on 12/24/16 21:13; Start 12/14/16 at 11:00; Stop 12/25/16 at 21:39 ; Status DC Insulin Detemir (Levemir Inj) 6 units Q12HR SQ Last administered on 12/27/16 08:14; Start 12/14/16 at 09:00 Metoprolol Tartrate (Lopressor) 75 mg Q12HR PO Last administered on 12/14/16 12:00; Start 12/14/16 at 12:00; Stop 12/14/16 at 16:10; Status DC Etomidate (Amidate Inj) 25 mg ONCE ONCE IVP ; Start 12/14/16 at 12:15; Stop at 18:48; Status DC Fentanyl Citrate (fentaNYL INJ) 200 mcg ONCE ONCE IV ; Start 12/14/16 at 12:15 ; Stop 12/14/16 at 18:48; Status DC Succinylcholine Chloride (Quelicin Inj) 150 mg ONCE ONCE IV ; Start 12/14/16 at 12:15; Stop 12/14/16 at 18:48; Status DC Metoprolol Tartrate (Lopressor) 100 mg Q12HR PO Last administered on 12/22/16 09:01; Start 12/14/16 at 21:00; Stop 12/22/16 at 12:48; Status DC Metoprolol Tartrate 25 mg 25 mg ONCE ONCE PO Last administered on 12/14/16 16 :55; Start 12/14/16 at 16:15; Stop 12/14/16 at 16:16; Status DC Iron Sucrose/ Sodium Chloride (Venofer Inj/NS Inj) 105 ml @ 105 mls/hr DAILY IV Last administered on 12/18/16 08:01; Start 12/16/16 at 09:00; Stop 12/18/16 at 09:59; Status DC Nitroglycerin (Nitrostat Sl) 0.4 mg Q5M PRN SL CHEST PAIN; Start 12/16/16 at 00: 15 Prednisone (Deltasone) 20 mg DAILY PO Last administered on 12/20/16 09:04; Start 12/17/16 at 09:00; Stop 12/20/16 at 10:01; Status DC Gadodiamide (Omniscan Pf Inj) 21 ml STK-MED ONCE IV Last administered on 15:41; Start 12/17/16 at 15:41; Stop 12/17/16 at 15:42; Status DC Oxycodone HCl (Roxicodone) 10 mg Q4H PRN PO PAIN 6-10 Last administered on 02:37; Start 12/17/16 at 19:00; Stop 12/21/16 at 08:51; Status DC Diltiazem HCl (Cardizem Inj) 20 mg ONCE PRN IV if HR 110-130 Last administered on 12/17/16 21:49; Start 12/17/16 at 21:30; Stop 12/17/16 at 22:30; Status DC Diltiazem HCl 20 mg 20 mg ONCE ONCE IVP ; Start 12/17/16 at 21:30; Stop 12/17/16 at 21:40; Status DC Diltiazem HCl/ Sodium Chloride (Cardizem Inj/NS Inj) 125 ml @ 0 mls/hr TITRATE IV Last administered on 12/17/16 22:12; Start 12/17/16 at 21:30; Stop 12/19/16 at 18:12; Status DC Lorazepam (Ativan) 0.5 mg DAILY PRN PO ANXIETY Last administered on 12/19/16 08 :29; Start 12/18/16 at 15:45; Status Hold Diltiazem HCl (Cardizem) 90 mg Q6H PO Last administered on 12/25/16 12:14; Start 12/18/16 at 23:00; Status Hold Diltiazem HCl (Cardizem) 30 mg NOW ONCE PO Last administered on 12/18/16 19:33 ; Start 12/18/16 at 19:30; Stop 12/18/16 at 19:31; Status DC Diltiazem HCl (Cardizem Inj) 10 mg NOW ONCE IV Last administered on 12/18/16 19:32; Start 12/18/16 at 19:30; Stop 12/18/16 at 19:31; Status DC Alteplase, Recombinant (Cathflo Activase Inj) 2 mg UNSCH X1 IV FLUSH ; Start at 19:45; Stop 12/18/16 at 23:00; Status DC Metoprolol Tartrate (Lopressor Inj) 5 mg ONCE ONCE IV PUSH Last administered on 12/19/16 05:40; Start 12/19/16 at 05:30; Stop 12/19/16 at 05:31; Status DC Digoxin (Lanoxin Inj) 0.5 mg NOW STAT IVS Last administered on 12/19/16 17:19 ; Start 12/19/16 at 16:51; Stop 12/19/16 at 17:04; Status DC Digoxin (Lanoxin Inj) 0.25 mg Q6H IVS Last administered on 12/20/16 03:54; Start 12/19/16 at 23:00; Stop 12/20/16 at 05:01; Status DC Digoxin (Lanoxin) 0.125 mg DAILY PO Last administered on 12/21/16 08:29; Start 12/20/16 at 09:00; Stop 12/21/16 at 11:59; Status DC Furosemide (Lasix Inj) 20 mg ONCE ONCE IV PUSH Last administered on 12/19/16 18:12; Start 12/19/16 at 17:45; Stop 12/19/16 at 17:46; Status DC Potassium Bicarb/ Potassium Chloride 25 meq 25 meq ONCE ONCE PO Last administered on 12/19/16 18:12; Start 12/19/16 at 17:45; Stop 12/19/16 at 17:46; Status DC Diltiazem HCl/ Sodium Chloride (Cardizem Inj/NS Inj) 125 ml @ 0 mls/hr TITRATE IV Last administered on 12/27/16 06:32; Start 12/19/16 at 18:15 Diltiazem HCl (Cardizem Inj) 18 mg NOW ONCE IV Last administered on 12/19/16 19:29; Start 12/19/16 at 18:15; Stop 12/19/16 at 18:16; Status DC Apixaban (Eliquis) 5 mg BID PO ; Start 12/20/16 at 10:00; Stop 12/20/16 at 10:00; Status DC Apixaban (Eliquis) 5 mg BID PO Last administered on 12/21/16 21:02; Start at 10:00; Stop 12/22/16 at 09:49; Status DC Diltiazem HCl (Cardizem Inj) 10 mg ONCE ONCE IV ; Start 12/20/16 at 09:30; Stop 12/20/16 at 09:31; Status DC Prednisone (Deltasone) 10 mg DAILY PO Last administered on 12/27/16 08:03; Start 12/21/16 at 09:00 Atropine Sulfate (Atropine Inj) 1 mg STK-MED ONCE .ROUTE ; Start 12/20/16 at 12: 45; Stop 12/20/16 at 12:46; Status DC Epinephrine HCl (EPINEPHrine (1:10,000) INJ) 1 mg STK-MED ONCE .ROUTE ; Start at 12:45; Stop 12/20/16 at 12:46; Status DC Acetaminophen (Tylenol) 650 mg ONCE ONCE PO Last administered on 12/20/16 18: 39; Start 12/20/16 at 18:45; Stop 12/20/16 at 18:46; Status DC Diphenhydramine HCl (Benadryl) 25 mg ONCE ONCE PO Last administered on 18:39; Start 12/20/16 at 18:45; Stop 12/20/16 at 18:46; Status DC Calcium Carbonate (Tums Chew) 500 mg ONCE ONCE CHEW Last administered on 00:45; Start 12/21/16 at 00:45; Stop 12/21/16 at 00:46; Status DC Calcium Carbonate (Tums Chew) 500 mg ONCE ONCE CHEW Last administered on 04:52; Start 12/21/16 at 05:00; Stop 12/21/16 at 05:01; Status DC Oxycodone HCl (Roxicodone) 15 mg Q4H PRN PO PAIN 6-10 Last administered on 12/27 03:17; Start 12/21/16 at 11:00 Digoxin (Lanoxin Inj) 0.5 mg NOW STAT IVS Last administered on 12/21/16 12:41 ; Start 12/21/16 at 11:49; Stop 12/21/16 at 11:50; Status DC Digoxin (Lanoxin Inj) 0.25 mg Q6H IVS Last administered on 12/21/16 17:19; Start 12/21/16 at 18:00; Stop 12/22/16 at 00:01; Status DC Digoxin (Lanoxin) 0.25 mg DAILY PO Last administered on 12/25/16 08:06; Start 12/22/16 at 09:00; Status Hold Calcium Carbonate (Tums Chew) 500 mg ONCE ONCE CHEW ; Start 12/22/16 at 01:00; Stop 12/22/16 at 01:01; Status DC Heparin Sodium (Porcine) (Heparin Inj) 5,000 units UNSCH PRN IV APTT LESS THAN 25; Start 12/22/16 at 15:15; Stop 12/23/16 at 00:05; Status DC Heparin Sodium (Porcine) 2500 units 2,500 units UNSCH PRN IV APTT 25 TO 39; Start 12/22/16 at 15:15; Stop 12/23/16 at 00:05; Status DC Heparin Sodium/ Dextrose (Heparin-D5W Inj) 250 ml @ 0 mls/hr TITRATE IV ; Start 12/22/16 at 09:15; Stop 12/22/16 at 09:42; Status DC Sucralfate (Carafate Liq) 1 gm ACHS PO Last administered on 12/27/16 06:46; Start 12/22/16 at 11:00 Metoprolol Tartrate (Lopressor Inj) 5 mg Q1HR PRN IV PUSH RAPID HEART RATE Last administered on 12/24/16 22:59; Start 12/22/16 at 09:45 Pantoprazole Sodium (Protonix Inj) 40 mg Q12H IV PUSH Last administered on 12/26 21:51; Start 12/22/16 at 10:00 Aspirin 81 mg 81 mg DAILY PO Last administered on 12/25/16 08:06; Start at 09:00; Status Hold Heparin Sodium/ Dextrose (Heparin-D5W Inj) 250 ml @ 0 mls/hr TITRATE IV Last administered on 12/22/16 12:43; Start 12/22/16 at 10:00; Stop 12/23/16 at 00:05; Status DC Metoprolol Tartrate (Lopressor) 25 mg Q6HR PO Last administered on 12/27/16 05 :49; Start 12/22/16 at 13:00 Furosemide (Lasix Inj) 20 mg ONCE ONCE IV PUSH Last administered on 12/22/16 12:44; Start 12/22/16 at 13:00; Stop 12/22/16 at 13:01; Status DC Furosemide (Lasix Inj) 20 mg ONCE IV PUSH Last administered on 12/23/16 02:31; Start 12/22/16 at 23:00; Stop 12/23/16 at 06:00; Status DC Morphine Sulfate (Morphine Inj) 2 mg Q4H PRN IV PUSH pain >5 Last administered on 12/25/16 12:27; Start 12/23/16 at 00:00 Diphenhydramine HCl (Benadryl) 25 mg ONCE ONCE PO Last administered on 04:04; Start 12/23/16 at 23:45; Stop 12/23/16 at 23:46; Status DC Acetaminophen (Tylenol) 650 mg ONCE ONCE PO Last administered on 12/24/16 04: 04; Start 12/23/16 at 23:45; Stop 12/23/16 at 23:46; Status DC Furosemide 20 mg 20 mg DAILY IV PUSH Last administered on 12/27/16t 08:04; Start 12/24/16 at 09:15 Lactated Ringer's 1,000 ml @ 30 mls/hr Q24H PRN IV SEE LABEL COMMENTS; Start at 22:00; Stop 12/26/16 at 14:00; Status DC Sodium Chloride (NS 500 ml Inj) 500 ml @ 30 mls/hr [id number] PRN IV SEE LABEL COMMENTS; Start 12/24/16 at 22:00; Stop 12/27/16 at 21:59 Metoprolol Tartrate (Lopressor) 25 mg OPERATIONS AGENT PRN PO SEE LABEL COMMENTS; Start 12/24/16 at 22:00; Stop 12/27/16 at 21:59 Povidone Iodine (Betadine 5% Antisepsis Kit) 1 applic OPERATIONS AGENT PRN EACH NARE SEE LABEL COMMENTS; Start 12/24/16 at 22:00; Stop 12/27/16 at 21:59 Chlorhexidine Gluconate (Chlorhexidine 2% Cloth) 3 pack OPERATIONS AGENT PRN TOPICAL SEE LABEL COMMENTS; Start 12/24/16 at 22:00; Stop 12/27/16 at 21:59 Insulin Human Regular See Protocol Table ... OPERATIONS AGENT PRN SQ SEE PROTOCOL TABLE ; Start 12/24/16 at 22:00; Stop 12/25/16 at 21:37; Status DC Propofol (Diprivan 1000 Mg/100ml Inj) 100 ml @ As Directed STK-MED ONCE .ROUTE ; Start 12/25/16 at 19:27; Stop 12/25/16 at 19:28; Status DC Midazolam HCl (Versed Inj) 2 mg STK-MED ONCE .ROUTE ; Start 12/25/16 at 20:09; Stop 12/25/16 at 20:10; Status DC Morphine Sulfate 4 mg 4 mg STK-MED ONCE .ROUTE ; Start 12/25/16 at 20:10; Stop 12/25/16 at 20:11; Status DC Propofol (Diprivan 1000 Mg/100ml Inj) 100 ml @ 0 mls/hr TITRATE IV ; Start 12/25 at 20:15; Stop 12/25/16 at 21:28; Status DC Propofol (Diprivan 200 Mg/20 ml Inj) 200 mg STK-MED ONCE IV ; Start 12/25/16 at 18:30; Stop 12/25/16 at 20:15; Status DC Phenylephrine HCl (Neosynephrine/ NS 1000 Mcg/10ml Syr) 500 mcg STK-MED ONCE IV ; Start 12/25/16 at 18:32; Stop 12/25/16 at 20:17; Status DC Lactated Ringer's (Lr 1000 ml Inj) 1,000 ml STK-MED ONCE IV ; Start 12/25/16 at 18:32; Stop 12/25/16 at 20:17; Status DC Sodium Chloride (NS 500 ml Inj) 500 ml STK-MED ONCE IV ; Start 12/25/16 at 18:32 ; Stop 12/25/16 at 20:17; Status DC Miscellaneous Information ALL NURSING DEPARTME... UNSCH PRN .XX SEE LABEL COMMENTS; Start 12/25/16 at 20:30; Stop 12/26/16 at 20:29; Status DC Phenylephrine HCl 40 mg 40 mg STK-MED ONCE .ROUTE ; Start 12/25/16 at 20:25; Stop 12/25/16 at 20:26; Status DC Propofol (Diprivan 1000 Mg/100ml Inj) 100 ml @ 0 mls/hr TITRATE IV Last administered on 12/26/16 06:08; Start 12/25/16 at 20:30 Phenylephrine HCl 1000 mcg 1,000 mcg STK-MED ONCE .ROUTE ; Start 12/25/16 at 20: 28; Stop 12/25/16 at 20:29; Status DC Fentanyl Citrate 250 ml @ As Directed STK-MED ONCE .ROUTE ; Start 12/25/16 at 20:34; Stop 12/25/16 at 20:35; Status DC Phenylephrine HCl/ Dextrose (Neosynephrine Inj/D5W 500 ml Inj) 500 ml @ 0 mls/ hr TITRATE IV Last administered on 12/27/16t 03:16; Start 12/25/16 at 20:45 Terbutaline Sulfate 1 mg 1 mg UNSCH PRN SQ FOR EXTRAVASATION PROTOCOL; Start at 20:45 Fentanyl Citrate (fentaNYL DRIP) 250 ml @ 0 mls/hr TITRATE IV ; Start 12/25/16 at 21:00 Magnesium Oxide 800 mg 800 mg UNSCH PRN PO For Magnesium 1.2 - 1.6 mg/dL Last administered on 12/27/16t 06:46; Start 12/25/16 at 21:00 Magnesium Sulfate 4 gm/Sodium Chloride 100 ml @ 50 mls/hr UNSCH PRN IV For Magnesium 0.9 - 1.1 mg/dL; Start 12/25/16 at 21:00 Magnesium Sulfate 2 gm/Sodium Chloride 100 ml @ 50 mls/hr UNSCH PRN IV For Magnesium 1.2 - 1.6 mg/dL; Start 12/25/16 at 21:00 Potassium Chloride 100 ml @ 50 mls/hr Q2H PRN IV For Potassium 2.8 - 3.2 mEq/L ; Start 12/25/16 at 21:00 Potassium Chloride 100 ml @ 50 mls/hr Q2H PRN IV For Potassium 3.3 - 3.5 mEq/L ; Start 12/25/16 at 21:00 Potassium Chloride 100 ml @ 50 mls/hr Q2H PRN IV For Potassium 2.8 - 3.2 mEq/L ; Start 12/25/16 at 21:00 Potassium Chloride (KCl 40 Meq Premix Inj) 100 ml @ 25 mls/hr UNSCH PRN IV For Potassium 3.3 - 3.5 mEq/L; Start 12/25/16 at 21:00 Potassium Phosphate (K-Phos) 2,000 mg Q4H PRN PO For Phosphorus < 2.5 mg/dL; Start 12/25/16 at 21:00 Potassium Phosphate 2000 mg 2,000 mg UNSCH PRN PO/TUBE SEE LABEL COMMENTS; Start 12/25/16 at 21:00 Potassium Phosphate 30 mmol/ Sodium Chloride 260 ml @ 42 mls/hr UNSCH PRN IV SEE LABEL COMMENTS; Start 12/25/16 at 21:00 Sodium Phosphate/ Sodium Chloride (Sodium Phosphate Inj/NS 250 ml Inj) 250 ml @ 42 mls/hr UNSCH PRN IV For Phosphorus < 2.5 mg/dL; Start 12/25/16 at 21:00 Chlorhexidine Gluconate (Peridex 0.12% Liq) 15 ml BID@08,20 MT Last administered on 12/27/16t 07:40; Start 12/26/16 at 08:00 Dextrose (D50w (Vial) Inj) 25 ml UNSCH PRN IV PUSH HYPOGLYCEMIA-SEE COMMENTS; Start 12/25/16 at 21:00 Insulin Human Regular (NovoLIN R SUPPLEMENTAL SCALE) 1 Q6HR SQ Last administered on 12/27/16 05:48; Start 12/26/16 at 00:00 Albuterol/ Ipratropium (Duoneb Neb) 1 ampule Q6HR NEB INH Last administered on 12/27/16 07:49; Start 12/25/16 at 22:00 Albuterol/ Ipratropium 1 ampule 1 ampule Q2HR NEB PRN INH WHEEZING; Start 12/25 at 21:00 Dextrose 1,000 ml @ 42 mls/hr [id number] IV Last administered on 12/25/16 23:27 ; Start 12/25/16 at 21:00; Stop 12/26/16 at 14:01; Status DC Amiodarone HCl 150 mg/Dextrose 100 ml @ 600 mls/hr ONCE ONCE IV ; Start at 21:00; Stop 12/25/16 at 21:09; Status DC Amiodarone HCl 900 mg/Dextrose 500 ml @ 0 mls/hr CONTINUOUS IV ; Start 12/25/16 at 21:00; Stop 12/25/16 at 21:13; Status DC Magnesium Sulfate/ Dextrose 100 ml @ 100 mls/hr Q1H IV ; Start 12/25/16 at 21: 00; Stop 12/25/16 at 22:59; Status DC Potassium Chloride 100 ml @ 50 mls/hr BOLUS ONCE IV ; Start 12/25/16 at 21:00 ; Stop 12/25/16 at 22:59; Status DC Sodium Chloride (NS 250 ml Inj) 250 ml @ As Directed STK-MED ONCE .ROUTE ; Start 12/25/16 at 21:04; Stop 12/25/16 at 21:05; Status DC Amiodarone HCl 150 mg 150 mg STK-MED ONCE .ROUTE ; Start 12/25/16 at 21:05; Stop 12/25/16 at 21:06; Status DC Amiodarone HCl 450 mg/Dextrose 250 ml @ 0 mls/hr CONTINUOUS IV Last administered on 12/27/16 06:31; Start 12/25/16 at 21:15 Sodium Chloride 1,000 ml @ 999 mls/hr BOLUS ONCE IV Last administered on 12/26 14:17; Start 12/26/16 at 14:00; Stop 12/26/16 at 15:00; Status DC Sodium Chloride 1,000 ml @ 75 mls/hr [id number] IV Last administered on 04:06; Start 12/26/16 at 14:00 Amiodarone HCl/ Dextrose (Cordarone Inj/ D5W 100 ml Inj) 100 ml @ 100 mls/hr ONCE ONCE IV Last administered on 12/26/16 23:27; Start 12/26/16 at 23:00; Stop 12/26/16 at 23:59; Status DC A/P Assessment and Plan A/P Hemoptysis, improved. -s/p EUS / EGD with esophageal stent placement. -Heparin drip DC'ed by Dr. Krause. -continue Carafate and Protonix -GI following. Septic shock, resolved -Secondary to MSSA bacteremia. MSSA bacteremia -[id number] infection - s/p removal of [id number]-Rooz by GS. Dressing changes per GS. Appreciate assistance. - Catheter tip culture blood culture and wound culture also positive for MSSA - Continue abx per ID, on IV Ancef, po Rifampin x 6 weeks from port removal and (completed course of Levaquin PO on 12/13). LFTs 12/15/16 wnl, continue antibiotics/Ancef until 01/15/17. -Per infectious disease once patient is ready for discharged to notify her so order can be placed. Acute metabolic encephalopathy- resolved -Encephalopathy most likely secondary to severe sepsis -Continue Thiamine, MVI, folic acid. Acute hypoxemic respiratory failure secondary to COPD exacerbation, resolved. - Emergently intubated and placed on mechanical ventilation 12/02/16, extubated successfully 12/03/16 - Continue with oxygen keep sat >92% - continue neb treatment - s/p IV Solu-Medrol , continue to taper down prednisone. Lower extremity edema, improving. -Secondary to being volume overloaded. -Continue with IV Lasix. NSTEMI/atrial fibrillation with RVR - difficult to control. still on cardizem and Amiodarone drip. - s/p PCI to LCx by Dr. Krause on 11/30/16 - Continue Plavix/metoprolol,cardizem . - Anticoagulation contraindicated secondary to hematemesis -continue to monitor and adjust the regimen as needed. 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 Patient will have a EUS. - on Protonix - Oncology following. He will need weekly Erbitux and XRT outpatient. - Status post surgical resection for L parotid SCC. plan for chemo and radiation per oncology. Anemia -Hb now fairly stable - s/p 2 unit PRBC. Per heme/onc recs, transfuse if Hb<8. Monitor H&H. Liver cirrhosis -stable -Follow-up as outpatient. Diabetes - SSI ( medium scale) and Levemir 6 units BID for glycemic control. Monitor BS . -blood sugar levels expected to improve as steroid is being tapered off. -PROPH: - Bilateral lower extremity SCDs. palliative care following. will consider transferring to telemetry when ok with Cardiology. d/w the RN at the bedside. Zamzam Kim MD Dec 27, 2016 08:39
[2016-12-27] MEDS: PANTOPRAZOLE SODIUM 40 MG VIAL IV PUSH SCH ×2 (09:09→22:02)
[2016-12-27 09:43] LABS: HEMATOCRIT 25.2 % (39.0-51.0); REVIEW FLAG FINAL
[2016-12-27 14:19] LABS: HEMATOCRIT 26.2 % (39.0-51.0); REVIEW FLAG FINAL
--- NOTE | 2016-12-27 14:24 | HHI.GIFU ---
Subjective Remarks Pt had 2 vanilla glucerna today, tolerating. (Amalia Cardoza) Objective Vitals I&O Vital Signs Date Time Temp Pulse Resp B/P Pulse Ox O2 Delivery O2 Flow Rate FiO2 12/27/16 14:00 119 12/27/16 12:00 116 12/27/16 12:00 98.7 119 21 93 128/59 12/27/16 10:00 120 12/27/16 08:00 95 Nasal Cannula 3.00 12/27/16 08:00 98.8 120 19 95 135/60 12/27/16 08:00 120 12/27/16 07:49 94 Nasal Cannula 2.00 12/27/16 06:00 119 12/27/16 04:00 99.5 118 21 95 126/62 12/27/16 04:00 111 12/27/16 02:00 111 12/27/16 00:00 98.9 134 21 92 113/57 12/27/16 00:00 134 12/26/16 22:00 136 12/26/16 20:00 136 12/26/16 20:00 95 Nasal Cannula 3.00 12/26/16 20:00 98.7 120 21 100 122/48 12/26/16 19:48 97 Nasal Cannula 2.00 12/26/16 18:00 106 12/26/16 16:00 120 12/26/16 16:00 98.8 120 16 95 113/54 12/26/16 15:56 97 Nasal Cannula 2.00 I/O 12/26/16 12/26/16 12/26/16 12/27/16 12/27/16 12/27/16 07:00 15:00 23:00 07:00 15:00 23:00 Intake Total 1630 ml 1894 ml 2452 ml 1708 ml 1371 ml Output Total 425 ml 1500 ml 525 ml 475 ml 2750 ml Balance 1205 ml 394 ml 1927 ml 1233 ml -1379 ml Intake Oral 0 ml 50 ml 100 ml 100 ml 500 ml IV Total 1630 ml 1844 ml 2352 ml 1608 ml 871 ml Output Urine Total 425 ml 1500 ml 525 ml 475 ml 2750 ml Stool Total 0 ml # Bowel Movements 0 Laboratory Laboratory Tests Test 12/26/16 12/27/16 12/27/16 12/27/16 19:10 04:20 09:00 13:45 Hemoglobin 8.9 8.3 8.5 8.6 Hematocrit 26.7 24.3 25.2 26.2 White Blood Count 8.7 Red Blood Count 2.79 Mean Corpuscular Volume 87.1 Mean Corpuscular Hemoglobin 29.8 Mean Corpuscular Hemoglobin 34.2 Concent Red Cell Distribution Width 20.8 Platelet Count 166 Mean Platelet Volume 7.7 Sodium Level 131 Potassium Level 3.5 Chloride Level 93 Carbon Dioxide Level 29.2 Anion Gap 9 Blood Urea Nitrogen 7 Creatinine 0.61 Estimat Glomerular Filtration 135 Rate Random Glucose 163 Calcium Level 7.5 Magnesium Level 1.4 Date/Time Procedure Status Source Growth 12/24/16 12:42 Stool Occult Blood ([facility]) - Final Complete Stool Stool HEMOCCULT NEGATIVE Imaging Last Impressions Chest X-Ray 12/26/16 0600 Signed Impressions: Service Date/Time: Monday, December 26, 2016 03:45 - CONCLUSION: Improving pulmonary edema and effusions, now mild/small. Unchanged moderate cardiomegaly. Washington Beasley MD GI Procedure 12/25/16 0000 Signed Impressions: Service Date/Time: December 19:33 - CONCLUSION: Spot film as above. Everett Pollock MD FACR Barium Swallow X-Ray 12/20/16 0000 Signed Impressions: Service Date/Time: Tuesday, December 20, 2016 13:15 - CONCLUSION: 1. The distal half of the esophagus demonstrates irregular luminal narrowing consistent with the patient's history of esophageal adenocarcinoma. 2. Mild dilatation of the esophagus immediately proximal to the esophageal mass. However, there are no signs of obstruction. 3. Small hiatal hernia. Washington Marroquin MD Abdomen MRI 12/17/16 0000 Signed Impressions: Service Date/Time: Saturday, December 17, 2016 13:59 - CONCLUSION: 1. No acute finding is identified to explain the abdominal pain. 2. Stable thickening of the distal esophagus. There is a single mildly enlarged left gastric lymph node measuring 12 x 10 mm. 3. Moderate sized bilateral pleural effusions, left larger than right, with associated compressive atelectasis. Washington Marroquin MD Head CT 12/01/16 0000 Signed Impressions: Service Date/Time: Thursday, December 01, 2016 07:59 - CONCLUSION: 1. Questionable area of low attenuation left temporal lobe could be artifact versus less likely infarct. MRI may be warranted based on clinical history. 2. No midline shift or mass effect. 3. No intraparenchymal hemorrhage. Jagjit Tapia MD Brain MRI 12/01/16 0000 Signed Impressions: Service Date/Time: Thursday, December 01, 2016 12:07 - CONCLUSION: Normal examination. Barrett Rodriguez MD Abdomen X-Ray 12/01/16 0000 Signed Impressions: Service Date/Time: Thursday, December 01, 2016 16:48 - CONCLUSION: No evidence of obstruction. Feeding tube tip in the distal stomach. Barrett Rodriguez MD Abdomen/Pelvis CT 11/29/16 2356 Signed Impressions: Service Date/Time: Wednesday, November 30, 2016 01:35 - CONCLUSION: 1. Markedly abnormal appearance of the distal esophagus consistent with the history of esophageal carcinoma. 2. Atherosclerotic calcifications of the aorta and iliac vessels. 3. Cirrhotic appearance to the liver with a mildly nodular contour present. Erik Simon MD CT Angiography 11/29/16 2348 Signed Impressions: Service Date/Time: Wednesday, November 30, 2016 01:35 - CONCLUSION: 1. No evidence for pulmonary embolism or pneumonia. 2. Abnormal appearance of the esophagus with and soft tissue consistent with the history of carcinoma. Erik Simon MD Physical Exam HEENT: Normocephalic; atraumatic; no jaundice. CHEST: CTA CARDIAC: Irregular rhythm. tachy +murmur ABDOMEN: Soft, obese, nondistended, nontender; no hepatosplenomegaly; bowel sounds x 4 EXTREMITIES: pitting edema BUE, BLE SKIN: Normal; no rash; no jaundice. MULTIPLE COIL WINDER: lethargic (Amalia Cardoza [employer]) Assessment and Plan Plan ASSESSMENT: - Odynophagia/Dysphagia. Worsening since Barium Swallow on 12/[address] following, pureed diet. Barium Swallow X-Ray 12/20/16--1. The distal half of the esophagus demonstrates irregular luminal narrowing consistent with the patient's history of esophageal adenocarcinoma. 2. Mild dilatation of the esophagus immediately proximal to the esophageal mass. However, there are no signs of obstruction. 3. Small hiatal hernia. Also bringing up small to moderate amount of bloody frothy secretions. s/p EUS with esophageal stent placement --> esophageal ca T3 N0 Mx, large friable mass with oozing, food and debris in esohagus, lengthy process to clean out. tolerating liquids - Upper GIB. He was bringing up bloody frothy secretions- small to moderate amount, but has not had any further episodes. HH stable. PPI - Esophageal cancer. PET Scan (10/28/16)----> negative examination of the head and neck, findings characteristic of esophageal neoplasm. S/P EGD/Colonoscopy (11/20/16)----> There was a long stricture i the mid esophagus and distal esophagus, multiple biopsies were performed, the mucosa of the stomach appeared normal, duodenal mucosa showed no abnormalities in the entire duodenum, retroflexed views revealed a small hiatal hernia; nine sessile polyps ranging from 4-12 mm in size were found at the cecum, in the ascending colon, descending colon, sigmoid colon, and rectum; polypectomy was performed using snare cautery, moderate diverticulosis was noted in the left colon, retroflexed views revealed internal grade I hemorrhoids, a digital rectal exam was performed and revealed no abnormalities of the anus. Pathology revealed invasive adenocarcinoma- distal esophagus, descending colon polyp and rectosigmoid polyp both benign hyperplastic colonic polyp, no adenomatous change or malignancy is seen. S/P XRT Simulation. Plan is for erbitux, radiation as outpatient. EUS as above - Constipation. (+) BM. Miralax - Abnormal imaging of the liver on CT scan, consistent with cirrhosis. Abdomen/ Pelvis CT (11/29/16)----> 1. Markedly abnormal appearance of the distal esophagus consistent with the history of esophageal carcinoma. 2. Atherosclerotic calcifications of the aorta and iliac vessels. 3. Cirrhotic appearance to the liver with a mildly nodular contour present. Abdomen MRI 12/17/16--1. No acute finding is identified to explain the abdominal pain. 2. Stable thickening of the distal esophagus. There is a single mildly enlarged left gastric lymph node measuring 12 x 10 mm. 3. Moderate sized bilateral pleural effusions, left larger than right, with associated compressive atelectasis. Unclear if he has hx of cirrhosis. There is mention of hx of HCV in EMR, but patient has had undetectable viral load as far back as 2001. Pt does report he has a history of HCV and was successfully treated with Interferon/ribavirin in the past. Iron saturation 4.1%, Ferritin 124, Hepatitis C antibodies (+), viral load undetectable, TERRIE negative, ASMA < 20.0, AMA neg, Ceruloplasmin 40 and alpha 1 antitrypsin 298. Labs and imaging consistent with cirrhosis. Pt does not currently drink, but states that he was a heavy drinker in the past. LFT stable. - Afib with RVR. Rate controlled. Cardiology following. - Sepsis/Bacteremia/UTI. Urine and Bcx with Staphylococcus aureus. S/P removal of infusaport by GS (12/02). Rpt bcx no growth. Ancef----> 01/15. - AMS, Acute metabolic encephalopathy. Head CT (12/01/16)-----> 1. Questionable area of low attenuation left temporal lobe could be artifact versus less likely infarct. MRI may be warranted based on clinical history. 2. No midline shift or mass effect. 3. No intraparenchymal hemorrhage. Brain MRI (12/01/16 )----> Normal examination. Lethargic, but awakens and follows commands. Confused. - Resp. Failure. Chest X-Ray (12/05/16)----> 1. Cardiomegaly and findings of vascular congestion without overt failure. There has been no significant change when compared to the prior exam. S/P Extubation on 12/03. cedric Carrillo, - NSTEMI, CAD. S/P left heart catheterization (11/30/16) with Dr. Murillo and this revealed RCA 10% lesion mid segment, mild calcifications left main, LAD with calcification from it's proximal segment to its midsegment however, with no significant obstructive lesions, The LAD is giving off to a diagonal which has a 70% lesion in its ostial segment, left circumflex artery with a proximal clot thrombus, S/P percutaneous coronary intervention/bare metal stent to proximal left circumflex. ASA and Plavix, as well as aggressive optimization of coronary artery disease. 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 S/P mohs surgery by a life scientist in September of 2015 and shortly after this, developed a mass near the surgical area. S/P at [facility] with Dr. Valdovinos in June of 2016----> underwent extensive head and neck surgery involving a parotidectomy and radical neck dissection in September of 2016. Because of high risk features of local recurrence with perineural invasion and positive margins, it was recommended that he have concurrent chemoradiation therapy. He was evaluated by Dr. Cross for radiation and seen by Dr. Bell for oncology. PET Scan ()---> negative examination of the head and neck, findings characteristic of esophageal neoplasm. Direct visualization is recommended. - Hx HTN, Hyperlipidemia, DM. per attending. 12/27 - tolerating liquids, HH stable PLAN: - consider low residue soft diet when able to tolerate solid - Monitor HH - Transfuse as necessary - Cont. PPI - Cont. Carafate - Cont. Miralax - Monitor labs - Supportive care - Patient seen and examined by Dr. Lomeli and myself and this note is written on his behalf (Amalia Cardoza) Plan Patient was seen and examined, agree with above note, advance diet as tolerated. continue current care. (Adi Lomeli MD) Amalia Cardoza Dec 27, 2016 14:24 Adi Lomeli MD Dec 27, 2016 16:41
[2016-12-27 20:18] LABS: HEMATOCRIT 26.7 % (39.0-51.0); REVIEW FLAG FINAL
[2016-12-28] VITALS (14 sets, daily range): BP systolic 122–169; BP diastolic 54–76; PULSE 114–131; RESP 16–29; TEMP 98.3–99.1; O2SAT 92–98
[2016-12-28] MEDS: INSULIN NovoLIN REGULAR SUPPLEMENTAL SCALE SQ SCH ×5 (00:16→23:58)
[2016-12-28] MEDS: METOPROLOL TARTRATE 25 MG TAB PO SCH ×5 (00:16→23:38)
[2016-12-28] MEDS: RESP: ALBUTEROL 2.5 MG/IPRATROPIUM 0.5 MG NEB (SCH) INH ×4 (01:07→19:12)
[2016-12-28] MEDS: ceFAZolin 2 GM PREMIX 50 ML IV SCH ×3 (01:46→17:55)
[2016-12-28] MEDS: DILTIAZEM 125 MG/NS 100 ML IV SCH ×4 (04:28→13:59)
[2016-12-28 05:06] LABS: HEMATOCRIT 25.1 % (39.0-51.0); MEAN CELL VOLUME 87.7 FL (80.0-100.0); MEAN CORPUSCULAR HEMOGLOBIN 29.3 PG (27.0-34.0); MEAN CORPUSCULAR HGB CONC 33.4 % (32.0-36.0); PLATELET COUNT 158 TH/MM3 (150-450); RED BLOOD COUNT 2.86 MIL/MM3 (4.50-5.90); RED CELL DISTRIBUTION WIDTH 20.5 % (11.6-17.2); REVIEW FLAG FINAL; WHITE BLOOD COUNT 8.2 TH/MM3 (4.0-11.0)
[2016-12-28 05:29] LABS: BICARBONATE 29.3 MEQ/L (21.0-32.0); POTASSIUM 3.8 MEQ/L (3.5-5.1)
[2016-12-28] MEDS: SODIUM CHLOR 0.9% 1000 ML INJ 1,000 ML IV SCH ×2 (05:35→16:38)
[2016-12-28] MEDS: AMIODARONE INJ 450 MG in D5W (EXCEL BAG) 241 ML IV SCH ×2 (06:33→13:59)
[2016-12-28] MEDS: CHLORHEXIDINE 0.12% (ORAL KIT) 15 ML CUP MT SCH ×2 (08:00→20:00)
[2016-12-28] MEDS: FUROSEMIDE 20 MG/2 ML VIAL IV PUSH SCH (08:13)
[2016-12-28] MEDS: RIFAMPIN 150 MG CAP PO SCH ×3 (08:13→23:35)
[2016-12-28] MEDS: LORazepam 2 MG/ML VIAL IV PUSH PRN ×2 (08:13→22:02)
[2016-12-28] MEDS: MULTIVITAMIN TAB PO SCH (08:14)
[2016-12-28] MEDS: predniSONE 10 MG TAB PO SCH (08:14)
[2016-12-28] MEDS: THIAMINE HCL 100 MG TAB PO SCH (08:14)
[2016-12-28] MEDS: INSULIN DETEMIR 100 UNITS/ML VIAL SQ SCH ×2 (08:15→20:58)
[2016-12-28] MEDS: SUCRALFATE 1 GM/10 ML CUP PO SCH ×4 (08:40→21:00)
[2016-12-28] MEDS: DOCUSATE SODIUM 50 MG/SENNA 8.6 MG TAB PO SCH ×2 (08:41→21:00)
[2016-12-28] MEDS: POLYETHYLENE GLYCOL 17 GM PKG PO SCH (08:41)
[2016-12-28] MEDS: SODIUM CHLORIDE 0.9% FLUSH 10 ML FLUSH IV FLUSH SCH ×3 (08:41→21:00)
--- NOTE | 2016-12-28 10:29 | PD.CARD.PN ---
Subjective Subjective Remarks The patient denies chest pain, shortness of breath, bleeding or GI symptoms. Telemetry reveals probable atrial flutter with rapid response. Objective Medications Reviewed Vital Signs / I&O Vital Signs Date Time Temp Pulse Resp B/P Pulse Ox O2 Delivery O2 Flow Rate FiO2 12/28/16 08:00 98 Nasal Cannula 4.00 12/28/16 07:38 92 Nasal Cannula 2.00 12/28/16 06:00 130 12/28/16 04:00 116 12/28/16 04:00 98.7 116 16 97 122/54 12/28/16 02:00 114 12/28/16 00:00 131 12/28/16 00:00 98.9 131 22 95 141/61 12/27/16 22:00 130 12/27/16 20:00 129 12/27/16 20:00 95 Nasal Cannula 3.00 12/27/16 20:00 98.8 118 24 95 133/55 12/27/16 19:45 98 Nasal Cannula 2.00 12/27/16 18:00 125 12/27/16 16:00 98.7 120 19 95 132/64 12/27/16 16:00 120 12/27/16 14:00 119 12/27/16 12:00 116 12/27/16 12:00 98.7 119 21 93 128/59 I/O 12/27/16 12/27/16 12/27/16 12/28/16 12/28/16 12/28/16 07:00 15:00 23:00 07:00 15:00 23:00 Intake Total 1708 ml 1371 ml 1065 ml 1138 ml Output Total 475 ml 2750 ml 725 ml 400 ml Balance 1233 ml -1379 ml 340 ml 738 ml Intake Oral 100 ml 500 ml 100 ml 150 ml IV Total 1608 ml 871 ml 965 ml 988 ml Output Urine Total 475 ml 2750 ml 725 ml 400 ml Stool Total 0 ml Physical Exam GENERAL: Frail,well-nourished, well-developed patient in no apparent distress. SKIN: Warm and dry. NECK: JVD normal - less than or equal to 5 cm H20. CARDIOVASCULAR: Regular rate and rhythm without gallops, or rubs. 2/6 mid peaking systolic ejection murmur throughout the precordium. RESPIRATORY: Normal breath sounds - equal bilaterally. No accessory muscle use. No wheezes, rales or rubs. PERIPHERY: No cyanosis. Trace edema. Laboratory Laboratory Tests Test 12/27/16 12/27/16 12/28/16 13:45 19:55 04:35 Hemoglobin 8.6 GM/DL 8.7 GM/DL 8.4 GM/DL Hematocrit 26.2 % 26.7 % 25.1 % White Blood Count 8.2 TH/MM3 Red Blood Count 2.86 MIL/MM3 Mean Corpuscular Volume 87.7 FL Mean Corpuscular Hemoglobin 29.3 PG Mean Corpuscular Hemoglobin 33.4 % Concent Red Cell Distribution Width 20.5 % Platelet Count 158 TH/MM3 Mean Platelet Volume 7.9 FL Sodium Level 131 MEQ/L Potassium Level 3.8 MEQ/L Chloride Level 94 MEQ/L Carbon Dioxide Level 29.3 MEQ/L Anion Gap 8 MEQ/L Blood Urea Nitrogen 10 MG/DL Creatinine 0.64 MG/DL Estimat Glomerular Filtration 128 ML/MIN Rate Random Glucose 204 MG/DL Calcium Level 7.5 MG/DL Imaging Reviewed Assessment and Plan Assessment and Plan Problems: Bare metal stent of the proximal circumflex less than 1 months ago Atrial flutter/fibrillation with rapid response 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 Certainly if he is a candidate, he needs to be on this to prevent stent thrombosis and ME. Continue present cardiac medication. Dr. Krause or one of my associates will follow him up tomorrow. He is not a candidate for anticoagulation. James Stapleton MD Dec 28, 2016 10:29
[2016-12-28] MEDS: PANTOPRAZOLE SODIUM 40 MG VIAL IV PUSH SCH ×2 (10:46→21:00)
[2016-12-28] MEDS: MORPHINE SULFATE 4 MG/ML INJ IV PUSH PRN ×2 (12:08→16:25)
[2016-12-28] MEDS ORDERED: ASPIRIN EC 81 MG TABEC PO ONE (12:30)
[2016-12-28] MEDS ORDERED: CLOPIDOGREL 75 MG TAB PO ONE (12:30)
--- NOTE | 2016-12-28 12:34 | HHI.GIFU ---
Subjective Remarks No apparent distress. No new complaints. Tolerating diet. (Mery Robles) Objective Vitals I&O Vital Signs Date Time Temp Pulse Resp B/P Pulse Ox O2 Delivery O2 Flow Rate FiO2 12/28/16 10:00 130 12/28/16 08:00 128 12/28/16 08:00 98.5 128 26 98 156/65 12/28/16 08:00 98 Nasal Cannula 4.00 12/28/16 07:38 92 Nasal Cannula 2.00 12/28/16 06:00 130 12/28/16 04:00 116 12/28/16 04:00 98.7 116 16 97 122/54 12/28/16 02:00 114 12/28/16 00:00 131 12/28/16 00:00 98.9 131 22 95 141/61 12/27/16 22:00 130 12/27/16 20:00 129 12/27/16 20:00 95 Nasal Cannula 3.00 12/27/16 20:00 98.8 118 24 95 133/55 12/27/16 19:45 98 Nasal Cannula 2.00 12/27/16 18:00 125 12/27/16 16:00 98.7 120 19 95 132/64 12/27/16 16:00 120 12/27/16 14:00 119 I/O 12/27/16 12/27/16 12/27/16 12/28/16 12/28/16 12/28/16 07:00 15:00 23:00 07:00 15:00 23:00 Intake Total 1708 ml 1371 ml 1065 ml 1138 ml Output Total 475 ml 2750 ml 725 ml 400 ml Balance 1233 ml -1379 ml 340 ml 738 ml Intake Oral 100 ml 500 ml 100 ml 150 ml IV Total 1608 ml 871 ml 965 ml 988 ml Output Urine Total 475 ml 2750 ml 725 ml 400 ml Stool Total 0 ml Laboratory Laboratory Tests Test 12/27/16 12/27/16 12/28/16 13:45 19:55 04:35 Hemoglobin 8.6 8.7 8.4 Hematocrit 26.2 26.7 25.1 White Blood Count 8.2 Red Blood Count 2.86 Mean Corpuscular Volume 87.7 Mean Corpuscular Hemoglobin 29.3 Mean Corpuscular Hemoglobin 33.4 Concent Red Cell Distribution Width 20.5 Platelet Count 158 Mean Platelet Volume 7.9 Sodium Level 131 Potassium Level 3.8 Chloride Level 94 Carbon Dioxide Level 29.3 Anion Gap 8 Blood Urea Nitrogen 10 Creatinine 0.64 Estimat Glomerular Filtration 128 Rate Random Glucose 204 Calcium Level 7.5 Date/Time Procedure Status Source Growth 12/24/16 12:42 Stool Occult Blood ([facility]) - Final Complete Stool Stool HEMOCCULT NEGATIVE Imaging Last Impressions Chest X-Ray 12/26/16 0600 Signed Impressions: Service Date/Time: Monday, December 26, 2016 03:45 - CONCLUSION: Improving pulmonary edema and effusions, now mild/small. Unchanged moderate cardiomegaly. Washington Beasley MD GI Procedure 12/25/16 0000 Signed Impressions: Service Date/Time: December 19:33 - CONCLUSION: Spot film as above. Everett Pollock MD FACR Barium Swallow X-Ray 12/20/16 0000 Signed Impressions: Service Date/Time: Tuesday, December 20, 2016 13:15 - CONCLUSION: 1. The distal half of the esophagus demonstrates irregular luminal narrowing consistent with the patient's history of esophageal adenocarcinoma. 2. Mild dilatation of the esophagus immediately proximal to the esophageal mass. However, there are no signs of obstruction. 3. Small hiatal hernia. Washington Marroquin MD Abdomen MRI 12/17/16 0000 Signed Impressions: Service Date/Time: Saturday, December 17, 2016 13:59 - CONCLUSION: 1. No acute finding is identified to explain the abdominal pain. 2. Stable thickening of the distal esophagus. There is a single mildly enlarged left gastric lymph node measuring 12 x 10 mm. 3. Moderate sized bilateral pleural effusions, left larger than right, with associated compressive atelectasis. Washington Marroquin MD Head CT 12/01/16 0000 Signed Impressions: Service Date/Time: Thursday, December 01, 2016 07:59 - CONCLUSION: 1. Questionable area of low attenuation left temporal lobe could be artifact versus less likely infarct. MRI may be warranted based on clinical history. 2. No midline shift or mass effect. 3. No intraparenchymal hemorrhage. Jagjit Tapia MD Brain MRI 12/01/16 0000 Signed Impressions: Service Date/Time: Thursday, December 01, 2016 12:07 - CONCLUSION: Normal examination. Barrett Rodriguez MD Abdomen X-Ray 12/01/16 0000 Signed Impressions: Service Date/Time: Thursday, December 01, 2016 16:48 - CONCLUSION: No evidence of obstruction. Feeding tube tip in the distal stomach. Barrett Rodriguez MD Abdomen/Pelvis CT 11/29/16 2356 Signed Impressions: Service Date/Time: Wednesday, November 30, 2016 01:35 - CONCLUSION: 1. Markedly abnormal appearance of the distal esophagus consistent with the history of esophageal carcinoma. 2. Atherosclerotic calcifications of the aorta and iliac vessels. 3. Cirrhotic appearance to the liver with a mildly nodular contour present. Erik Simon MD CT Angiography 11/29/16 2348 Signed Impressions: Service Date/Time: Wednesday, November 30, 2016 01:35 - CONCLUSION: 1. No evidence for pulmonary embolism or pneumonia. 2. Abnormal appearance of the esophagus with and soft tissue consistent with the history of carcinoma. Erik Simon MD Physical Exam HEENT: Normocephalic; atraumatic; no jaundice. CHEST: CTA CARDIAC: RRR, 2/6 systolic murmur ABDOMEN: Soft, obese, nondistended, nontender; no hepatosplenomegaly; bowel sounds x 4 EXTREMITIES: Trace edema SKIN: Normal; no rash; no jaundice. (Mery Robles) Assessment and Plan Plan ASSESSMENT: - Odynophagia/Dysphagia. Worsening since Barium Swallow on 12/[address] following, pureed diet. Barium Swallow X-Ray 12/20/16--1. The distal half of the esophagus demonstrates irregular luminal narrowing consistent with the patient's history of esophageal adenocarcinoma. 2. Mild dilatation of the esophagus immediately proximal to the esophageal mass. However, there are no signs of obstruction. 3. Small hiatal hernia. Also bringing up small to moderate amount of bloody frothy secretions. s/p EUS with esophageal stent placement --> esophageal ca T3 N0 Mx, large friable mass with oozing, food and debris in esohagus, lengthy process to clean out. tolerating liquids - Upper GIB. He was bringing up bloody frothy secretions- small to moderate amount, but has not had any further episodes. HH stable. PPI - Esophageal cancer. PET Scan (10/28/16)----> negative examination of the head and neck, findings characteristic of esophageal neoplasm. S/P EGD/Colonoscopy (11/20/16)----> There was a long stricture i the mid esophagus and distal esophagus, multiple biopsies were performed, the mucosa of the stomach appeared normal, duodenal mucosa showed no abnormalities in the entire duodenum, retroflexed views revealed a small hiatal hernia; nine sessile polyps ranging from 4-12 mm in size were found at the cecum, in the ascending colon, descending colon, sigmoid colon, and rectum; polypectomy was performed using snare cautery, moderate diverticulosis was noted in the left colon, retroflexed views revealed internal grade I hemorrhoids, a digital rectal exam was performed and revealed no abnormalities of the anus. Pathology revealed invasive adenocarcinoma- distal esophagus, descending colon polyp and rectosigmoid polyp both benign hyperplastic colonic polyp, no adenomatous change or malignancy is seen. S/P XRT Simulation. Plan is for erbitux, radiation as outpatient. EUS as above - Constipation. (+) BM. Miralax - Abnormal imaging of the liver on CT scan, consistent with cirrhosis. Abdomen/ Pelvis CT (11/29/16)----> 1. Markedly abnormal appearance of the distal esophagus consistent with the history of esophageal carcinoma. 2. Atherosclerotic calcifications of the aorta and iliac vessels. 3. Cirrhotic appearance to the liver with a mildly nodular contour present. Abdomen MRI 12/17/16--1. No acute finding is identified to explain the abdominal pain. 2. Stable thickening of the distal esophagus. There is a single mildly enlarged left gastric lymph node measuring 12 x 10 mm. 3. Moderate sized bilateral pleural effusions, left larger than right, with associated compressive atelectasis. Unclear if he has hx of cirrhosis. There is mention of hx of HCV in EMR, but patient has had undetectable viral load as far back as 2001. Pt does report he has a history of HCV and was successfully treated with Interferon/ribavirin in the past. Iron saturation 4.1%, Ferritin 124, Hepatitis C antibodies (+), viral load undetectable, TERRIE negative, ASMA < 20.0, AMA neg, Ceruloplasmin 40 and alpha 1 antitrypsin 298. Labs and imaging consistent with cirrhosis. Pt does not currently drink, but states that he was a heavy drinker in the past. LFT stable. - Afib with RVR. Rate controlled. Cardiology following. - Sepsis/Bacteremia/UTI. Urine and Bcx with Staphylococcus aureus. S/P removal of infusaport by GS (12/02). Rpt bcx no growth. Ancef----> 01/15. - AMS, Acute metabolic encephalopathy. Head CT (12/01/16)-----> 1. Questionable area of low attenuation left temporal lobe could be artifact versus less likely infarct. MRI may be warranted based on clinical history. 2. No midline shift or mass effect. 3. No intraparenchymal hemorrhage. Brain MRI (12/01/16 )----> Normal examination. Lethargic, but awakens and follows commands. Confused. - Resp. Failure. Chest X-Ray (12/05/16)----> 1. Cardiomegaly and findings of vascular congestion without overt failure. There has been no significant change when compared to the prior exam. S/P Extubation on 12/03. cedric Carrillo, - NSTEMI, CAD. S/P left heart catheterization (11/30/16) with Dr. Murillo and this revealed RCA 10% lesion mid segment, mild calcifications left main, LAD with calcification from it's proximal segment to its midsegment however, with no significant obstructive lesions, The LAD is giving off to a diagonal which has a 70% lesion in its ostial segment, left circumflex artery with a proximal clot thrombus, S/P percutaneous coronary intervention/bare metal stent to proximal left circumflex. ASA and Plavix, as well as aggressive optimization of coronary artery disease. 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 S/P mohs surgery by a major assembly inspector in September of 2015 and shortly after this, developed a mass near the surgical area. S/P at [facility] with Dr. Valdovinos in June of 2016----> underwent extensive head and neck surgery involving a parotidectomy and radical neck dissection in September of 2016. Because of high risk features of local recurrence with perineural invasion and positive margins, it was recommended that he have concurrent chemoradiation therapy. He was evaluated by Dr. Cross for radiation and seen by Dr. Bell for oncology. PET Scan ()---> negative examination of the head and neck, findings characteristic of esophageal neoplasm. Direct visualization is recommended. - Hx HTN, Hyperlipidemia, DM. per attending. 12/27 - tolerating liquids, HH stable 12/28 - tolerating diet, HH stable 8.09/09.1 PLAN: - Advance diet as tolerated - Monitor HH, transfuse as necessary - Cont. PPI - Cont. Carafate - Cont. Miralax - Monitor labs - Supportive care - Further recommendations to follow based on results of above. Patient seen and examined by Dr. Tejeda and myself and this note is written on his behalf. (Mery Robles) Physician Comments Patient Seen and examined Agree with above Continue with current supportive care Monitor labs Currently in bed with O2 mask with some complaints of shortness of breath this is being addressed by the attending physician Patient tolerated intake earlier today H&H is stable and patient may resume aspirin and Plavix for a recent history of cardiac stent placement Continue to monitor H&H and if there is any decline please reconsult but for now and not much to add therefore we will sign off (Ortiz Tejeda MD) Mery Robles Dec 28, 2016 12:34 Ortiz Tejeda MD Dec 28, 2016 21:58
[2016-12-28] MEDS: RESP: ALBUTEROL 2.5 MG/IPRATROPIUM 0.5 MG NEB (PRN) NEB (13:14)
--- NOTE | 2016-12-28 13:56 | HHI.PR ---
Subjective Remarks somewhat sedated due to dose of Ativan that he received earlier. still tachycardic-on Amiodarone and Cardisem drip. afebrile. d/w the RN at the bedside. Objective Vitals Vital Signs Date Time Temp Pulse Resp B/P Pulse Ox O2 Delivery O2 Flow Rate FiO2 12/28/16 10:00 130 12/28/16 08:00 128 12/28/16 08:00 98.5 128 26 98 156/65 12/28/16 08:00 98 Nasal Cannula 4.00 12/28/16 07:38 92 Nasal Cannula 2.00 12/28/16 06:00 130 12/28/16 04:00 116 12/28/16 04:00 98.7 116 16 97 122/54 12/28/16 02:00 114 12/28/16 00:00 131 12/28/16 00:00 98.9 131 22 95 141/61 12/27/16 22:00 130 12/27/16 20:00 129 12/27/16 20:00 95 Nasal Cannula 3.00 12/27/16 20:00 98.8 118 24 95 133/55 12/27/16 19:45 98 Nasal Cannula 2.00 12/27/16 18:00 125 12/27/16 16:00 98.7 120 19 95 132/64 12/27/16 16:00 120 12/27/16 14:00 119 I/O 12/27/16 12/27/16 12/27/16 12/28/16 12/28/16 12/28/16 07:00 15:00 23:00 07:00 15:00 23:00 Intake Total 1708 ml 1371 ml 1065 ml 1138 ml Output Total 475 ml 2750 ml 725 ml 400 ml Balance 1233 ml -1379 ml 340 ml 738 ml Intake Oral 100 ml 500 ml 100 ml 150 ml IV Total 1608 ml 871 ml 965 ml 988 ml Output Urine Total 475 ml 2750 ml 725 ml 400 ml Stool Total 0 ml Result Diagram: 12/28/16 0435 12/28/16 043 Imaging Last Impressions Chest X-Ray 12/26/16 0600 Signed Impressions: Service Date/Time: Monday, December 26, 2016 03:45 - CONCLUSION: Improving pulmonary edema and effusions, now mild/small. Unchanged moderate cardiomegaly. Washington Beasley MD GI Procedure 12/25/16 Signed Impressions: Service Date/Time: December 19:33 - CONCLUSION: Spot film as above. Everett Pollock MD FACR Barium Swallow X-Ray 12/20/16 Signed Impressions: Service Date/Time: Tuesday, December 20, 2016 13:15 - CONCLUSION: 1. The distal half of the esophagus demonstrates irregular luminal narrowing consistent with the patient's history of esophageal adenocarcinoma. 2. Mild dilatation of the esophagus immediately proximal to the esophageal mass. However, there are no signs of obstruction. 3. Small hiatal hernia. Washington Marroquin MD Abdomen MRI 12/17/16 Signed Impressions: Service Date/Time: Saturday, December 17, 2016 13:59 - CONCLUSION: 1. No acute finding is identified to explain the abdominal pain. 2. Stable thickening of the distal esophagus. There is a single mildly enlarged left gastric lymph node measuring 12 x 10 mm. 3. Moderate sized bilateral pleural effusions, left larger than right, with associated compressive atelectasis. Washington Marroquin MD Head CT 12/01/16 Signed Impressions: Service Date/Time: Thursday, December 01, 2016 07:59 - CONCLUSION: 1. Questionable area of low attenuation left temporal lobe could be artifact versus less likely infarct. MRI may be warranted based on clinical history. 2. No midline shift or mass effect. 3. No intraparenchymal hemorrhage. Jagjit Tapia MD Brain MRI 12/01/16 Signed Impressions: Service Date/Time: Thursday, December 01, 2016 12:07 - CONCLUSION: Normal examination. Barrett Rodriguez MD Abdomen X-Ray 12/01/16 Signed Impressions: Service Date/Time: Thursday, December 01, 2016 16:48 - CONCLUSION: No evidence of obstruction. Feeding tube tip in the distal stomach. Barrett Rodriguez MD Abdomen/Pelvis CT 11/29/16 [id number] Signed Impressions: Service Date/Time: Wednesday, November 30, 2016 01:35 - CONCLUSION: 1. Markedly abnormal appearance of the distal esophagus consistent with the history of esophageal carcinoma. 2. Atherosclerotic calcifications of the aorta and iliac vessels. 3. Cirrhotic appearance to the liver with a mildly nodular contour present. Erik Simon MD CT Angiography 11/29/16 [id number] Signed Impressions: Service Date/Time: Wednesday, November 30, 2016 01:35 - CONCLUSION: 1. No evidence for pulmonary embolism or pneumonia. 2. Abnormal appearance of the esophagus with and soft tissue consistent with the history of carcinoma. Erik Simon MD Objective Remarks GENERAL: in no acute distress but confused CARDIOVASCULAR: irregular rhythm and tachycardic. systolic murmur noted in LSB RESPIRATORY: systolic murmur in LSB GASTROINTESTINAL: Abdomen soft, non-tender, nondistended. Normal, active bowel sounds MUSCULOSKELETAL: lower extremities with bilateral pedal edema. NEURO: awake, alert and less confused today; oriented to person, place and partly to time. Procedures central line/ arterial line placement intubation cardiac catheterization port removal EUS with esophageal stent placement Medications and IVs Current Medications Sodium Chloride (NS 1000 ml Inj) 1,000 ml @ 999 mls/hr BOLUS ONCE IV Last administered on 11/30/16 01:52; Start 11/30/16 at 00:00; Stop 11/30/16 at 01:00 ; Status DC Morphine Sulfate (Morphine Inj) 4 mg ONCE ONCE IV PUSH Last administered on 01:53; Start 11/30/16 at 01:00; Stop 11/30/16 at 01:01; Status DC Potassium Bicarb/ Potassium Chloride (K-Lyte Cl Eff) 75 meq ONCE ONCE PO Last administered on 11/30/16 01:53; Start 11/30/16 at 01:30; Stop 11/30/16 at 01:31; Status DC Iohexol (Omnipaque 350 Inj) 75 ml STK-MED ONCE IV ; Start 11/30/16 at 01:37; Stop 11/30/16 at 01:38; Status DC Calcium Gluconate 1 gm 1 gm ONCE ONCE IV PUSH Last administered on 11/30/16 02:58; Start 11/30/16 at 02:45; Stop 11/30/16 at 02:46; Status DC Sodium Chloride (NS 1000 ml Inj) 1,000 ml @ 100 mls/hr Q10H IV Last administered on 11/30/16 02:58; Start 11/30/16 at 02:33; Stop 11/30/16 at 13:54 ; Status DC Sodium Chloride (NS Flush) 2 ml UNSCH PRN IV FLUSH FLUSH AFTER USING IV ACCESS Last administered on 12/24/16 09:59; Start 11/30/16 at 02:45 Sodium Chloride (NS Flush) 2 ml BID IV FLUSH Last administered on 12/27/16 08: 04; Start 11/30/16 at 09:00 Ondansetron HCl (Zofran Inj) 4 mg Q6H PRN IVP NAUSEA OR VOMITING; Start at 02:45; Stop 11/30/16 at 13:51; Status DC Acetaminophen (Tylenol) 650 mg Q6H PRN PO FEVER/PAIN SCALE 1 TO 2; Start at 02:45; Stop 11/30/16 at 13:54; Status DC Hydromorphone HCl (Dilaudid Pf Inj) 1 mg Q3H PRN IV Pain 6-10 Last administered on 12/04/16 06:52; Start 11/30/16 at 02:45; Stop 12/04/16 at 09:25 ; Status DC Oxycodone HCl (Roxicodone) 5 mg Q4H PRN PO PAIN SCALE 3 TO 5 Last administered on 12/26/16 18:20; Start 11/30/16 at 02:45 Senna/Docusate Sodium (Rere-Colace) 1 tab BID PO Last administered on 20:27; Start 11/30/16 at 09:00 Magnesium Hydroxide (Milk Of Magnesia Liq) 30 ml Q12H PRN PO MILD - MODERATE CONSTIPATION; Start 11/30/16 at 02:45 Sennosides (Senokot) 17.2 mg Q12H PRN PO MODERATE - SEVERE CONSTIPATION; Start 11/30/16 at 02:45 Bisacodyl (Dulcolax Supp) 10 mg DAILY PRN RECTAL SEVERE CONSITIPATION; Start at 02:45 Lactulose (Lactulose Liq) 30 ml DAILY PRN PO SEVERE CONSITIPATION; Start at 02:45 Pantoprazole Sodium (Protonix Inj) 40 mg Q12H IV PUSH Last administered on 12/12 21:10; Start 11/30/16 at 09:00; Stop 12/13/16 at 08:25; Status DC Miscellaneous Information Patient in critical care unit? Ass... Q361D .XX ; Start 11/30/16 at 05:15 Chlorhexidine Gluconate (Chlorhexidine 2% Cloth) 3 pack DAILY@04 TOPICAL Last administered on 12/05/16 04:00; Start 12/01/16 at 04:00; Stop 12/05/16 at 04:01 ; Status DC Chlorhexidine Gluconate (Chlorhexidine 2% Cloth) 3 pack UNSCH PRN TOPICAL HYGIENIC CARE; Start 11/30/16 at 05:15; Stop 12/05/16 at 05:12; Status DC Aspirin 81 mg 81 mg ONCE ONCE PO Last administered on 11/30/16 12:19; Start 11/30/16 at 12:00; Stop 11/30/16 at 12:01; Status DC Heparin Sodium/ Dextrose (Heparin-D5W Inj) 250 ml @ 0 mls/hr TITRATE IV Last administered on 11/30/16 12:21; Start 11/30/16 at 12:15; Stop 11/30/16 at 13:49 ; Status DC Heparin Sodium (Porcine) (Heparin Inj) 5,000 units UNSCH PRN IV aPTT less than 25; Start 11/30/16 at 12:15; Stop 11/30/16 at 13:49; Status DC Heparin Sodium (Porcine) (Heparin Inj) 2,500 units UNSCH PRN IV aPTT 25 to 39; Start 11/30/16 at 12:15; Stop 11/30/16 at 13:49; Status DC Heparin Sodium (Porcine) 4000 units 4,000 units ONCE ONCE IV Last administered on 11/30/16 12:19; Start 11/30/16 at 12:15; Stop 11/30/16 at 12:16 ; Status DC Heparin Sodium/ Sodium Chloride (Heparin-NS/Pf Inj) 500 ml @ As Directed STK- MED ONCE .ROUTE Last administered on 11/30/16 12:36; Start 11/30/16 at 12:36; Stop 11/30/16 at 12:37; Status DC Midazolam HCl (Versed Inj) 2 mg STK-MED ONCE .ROUTE Last administered on 12:36; Start 11/30/16 at 12:36; Stop 11/30/16 at 12:37; Status DC Fentanyl Citrate (fentaNYL INJ) 100 mcg STK-MED ONCE .ROUTE Last administered on 11/30/16 12:36; Start 11/30/16 at 12:36; Stop 11/30/16 at 12:37; Status DC Dextrose (D50w (Syr) Inj) 50 ml STK-MED ONCE .ROUTE Last administered on 12:53; Start 11/30/16 at 12:53; Stop 11/30/16 at 12:54; Status DC Phenylephrine HCl (Neosynephrine Inj) 40 mg STK-MED ONCE .ROUTE Last administered on 11/30/16 13:04; Start 11/30/16 at 13:04; Stop 11/30/16 at 13:05 ; Status DC Clopidogrel Bisulfate 600 mg 600 mg STK-MED ONCE .ROUTE ; Start 11/30/16 at 13: 25; Stop 11/30/16 at 13:26; Status DC Sodium Chloride (NS 1000 ml Inj) 1,000 ml @ 125 mls/hr Q8H IV Last administered on 11/30/16 21:51; Start 11/30/16 at 13:42; Stop 11/30/16 at 17:41 ; Status DC Acetaminophen (Tylenol) 325 mg Q4H PRN PO PAIN SCALE 1 TO 2 Last administered on 12/13/16 17:13; Start 11/30/16 at 13:45 Aspirin (Aspirin Chew) 81 mg DAILY PO Last administered on 12/21/16 08:29; Start 11/30/16 at 13:45; Stop 12/22/16 at 09:42; Status DC Clopidogrel Bisulfate (Plavix) 600 mg ONCE ONCE PO ; Start 11/30/16 at 13:45; Stop 11/30/16 at 13:47; Status DC Clopidogrel Bisulfate (Plavix) 75 mg DAILY PO Last administered on 12/25/16 08 :06; Start 12/01/16 at 09:00; Status Hold Miscellaneous Information 1 ONCE ONCE XX ; Start 11/30/16 at 13:45; Stop at 13:49; Status DC Atropine Sulfate (Atropine Inj) 0.5 mg UNSCH PRN IV VAGAL REPONSE; Start at 13:45 Ondansetron HCl (Zofran Inj) 4 mg Q4H PRN IV NAUSEA Last administered on 22:41; Start 11/30/16 at 13:45 Metoprolol Tartrate (Lopressor) 12.5 mg BID PO Last administered on 12/01/16 09:51; Start 11/30/16 at 21:00; Stop 12/14/16 at 16:12; Status DC Atorvastatin Calcium (Lipitor) 10 mg HS PO Last administered on 12/02/16 21:22 ; Start 11/30/16 at 21:00; Stop 12/12/16 at 09:02; Status DC Miscellaneous Information HOLD METFORMIN FOR... Q24H .XX ; Start 11/30/16 at 15: 00; Stop 12/02/16 at 14:59; Status DC Potassium Chloride (KCl 20 Meq Premix Inj) 100 ml @ 50 mls/hr Q2H IV Last administered on 11/30/16 19:24; Start 11/30/16 at 18:00; Stop 11/30/16 at 21:59 ; Status DC Sodium Chloride (NS Flush) 5 ml Q21D IV FLUSH Last administered on 12/21/16 17: 19; Start 11/30/16 at 18:00 Heparin Sodium (Porcine) (Heparin Central Flush) 500 units Q21D IV FLUSH Last administered on 11/30/16 18:04; Start 11/30/16 at 18:00 Sodium Chloride (NS Flush) 5 ml UNSCH PRN IV FLUSH SEE LABEL COMMENTS; Start at 18:00 Heparin Sodium (Porcine) (Heparin Central Flush) 250 units UNSCH PRN IV FLUSH FLUSH AFTER USING IV ACCESS; Start 11/30/16 at 18:00 Lorazepam (Ativan Inj) 0.5 mg ONCE ONCE IV PUSH Last administered on 06:37; Start 12/01/16 at 06:30; Stop 12/01/16 at 06:31; Status DC Lorazepam 0.5 mg 0.5 mg ONCE ONCE IV Last administered on 12/01/16 07:43; Start 12/01/16 at 07:45; Stop 12/01/16 at 07:46; Status DC Potassium Chloride 30 meq/ Sodium Chloride 115 ml @ 38.333 mls/ hr Q3H IV- CENTRAL Last administered on 12/01/16 12:43; Start 12/01/16 at 08:30; Stop at 14:29; Status DC Vancomycin HCl 2100 mg/Sodium Chloride 521 ml @ 250 mls/hr ONCE ONCE IV Last administered on 12/01/16 12:43; Start 12/01/16 at 12:00; Stop 12/01/16 at 14:06 ; Status DC Pharmacy Profile Note 0 ml @ 0 mls/hr UNSCH OTHER ; Start 12/01/16 at 10:30; Status UNV Pharmacy Profile Note 0 ml @ 0 mls/hr UNSCH OTHER ; Start 12/01/16 at 11:00; Stop 12/01/16 at 13:07; Status DC Vancomycin HCl 1250 mg/Sodium Chloride 262.5 ml @ 262.5 mls/ hr Q24H IV ; Start 12/02/16 at 09:00; Stop 12/02/16 at 09:00; Status DC Ceftriaxone Sodium 2000 mg/ Sodium Chloride 100 ml @ 200 mls/hr Q24H IV ; Start 12/01/16 at 14:00; Stop 12/01/16 at 16:10; Status DC Thiamine HCl/ Sodium Chloride (Thiamine Inj/NS Inj) 101 ml @ 101 mls/hr DAILY IV Last administered on 12/01/16 14:09; Start 12/01/16 at 13:00; Stop at 08:28; Status DC Flumazenil (Romazicon Inj) 0.2 mg Q1M PRN IV PUSH SEE LABEL COMMENTS; Start at 13:00 Lorazepam (Ativan) 1 mg Q4H PRN PO CIWA 8 - 10; Start 12/01/16 at 13:00; Stop 12/04/16 at 09:29; Status DC Lorazepam (Ativan Inj) 1 mg Q4H PRN IV PUSH CIWA 8 - 10 Last administered on 21:52; Start 12/01/16 at 13:00; Stop 12/04/16 at 09:29; Status DC Lorazepam (Ativan) 2 mg Q2H PRN PO CIWA 11-14; Start 12/01/16 at 13:00; Stop at 09:29; Status DC Lorazepam (Ativan Inj) 2 mg Q2H PRN IV PUSH CIWA 11-14 Last administered on 04:37; Start 12/01/16 at 13:00; Stop 12/04/16 at 09:29; Status DC Lorazepam (Ativan Inj) 2 mg Q1H PRN IV PUSH CIWA 15-20; Start 12/01/16 at 13:00 ; Stop 12/04/16 at 09:29; Status DC Lorazepam 2 mg 2 mg Q15M PRN IV PUSH CIWA > 20; Start 12/01/16 at 13:00; Stop 12/04/16 at 09:29; Status DC Sodium Chloride 1,000 ml @ 999 mls/hr BOLUS ONCE IV Last administered on 12/01 14:09; Start 12/01/16 at 13:00; Stop 12/01/16 at 14:06; Status DC Sodium Chloride (NS 1000 ml Inj) 1,000 ml @ 999 mls/hr BOLUS ONCE IV Last administered on 12/01/16 14:09; Start 12/01/16 at 13:00; Stop 12/01/16 at 14:06 ; Status DC Morphine Sulfate 8 mg 8 mg STK-MED ONCE .ROUTE Last administered on 12/01/16 14:06; Start 12/01/16 at 14:04; Stop 12/01/16 at 14:05; Status DC Dexmedetomidine HCl/Sodium Chloride (Precedex Inj/NS Inj) 52 ml @ 0 mls/hr TITRATE IV ; Start 12/01/16 at 14:30; Stop 12/03/16 at 07:50; Status DC Albuterol/ Ipratropium (Duoneb Neb) 1 ampule Q6HR NEB NEB Last administered on 12/05/16 15:58; Start 12/01/16 at 16:00; Stop 12/05/16 at 16:00; Status DC Albuterol/ Ipratropium 1 ampule 1 ampule Q2HR NEB PRN NEB SHORTNESS OF BREATH Last administered on 12/28/16 13:14; Start 12/01/16 at 14:30 Cefazolin Sodium/ Dextrose 50 ml @ 100 mls/hr Q8H IV Last administered on 12/03 08:27; Start 12/01/16 at 18:00; Stop 12/06/16 at 09:11; Status DC Pharmacy Profile Note 0 ml @ 0 mls/hr UNSCH OTHER ; Start 12/01/16 at 16:15; Stop 12/03/16 at 10:51; Status DC Sodium Chloride (NS 1000 ml Inj) 1,000 ml @ 50 mls/hr Q20H IV Last administered on 12/04/16 05:40; Start 12/01/16 at 16:30; Stop 12/04/16 at 09:25 ; Status DC Acetaminophen 650 mg 650 mg Q6H PRN PO FEVER Last administered on 12/02/16 01 :07; Start 12/01/16 at 17:30 Vancomycin HCl/ Sodium Chloride (Vancomycin Inj/ NS 500 ml Inj) 521 ml @ 250 mls/hr Q18H IV Last administered on 12/02/16 05:36; Start 12/02/16 at 06:00; Stop 12/02/16 at 11:38; Status DC Miscellaneous Information SPECIFIC LAB TO BE DRAWN:[facility]ANCO TROUGH DATE TO... ONCE ONCE .XX ; Start 12/03/16 at 17:45; Stop 12/03/16 at 17:46; Status Cancel Sodium Chloride (NS 1000 ml Inj) 1,000 ml @ 999 mls/hr BOLUS ONCE IV Last administered on 12/02/16 06:30; Start 12/02/16 at 06:30; Stop 12/02/16 at 07:30 ; Status DC Methylprednisolone Sodium Succinate (SoluMEDROL INJ) 125 mg ONCE STAT IV PUSH Last administered on 12/02/16 07:14; Start 12/02/16 at 06:52; Stop 12/02/16 at 06:59; Status DC Methylprednisolone Sodium Succinate (SoluMEDROL INJ) 60 mg Q8HR IV PUSH Last administered on 12/05/16 05:17; Start 12/02/16 at 14:00; Stop 12/05/16 at 09:00 ; Status DC Etomidate (Amidate Inj) 20 mg STK-MED ONCE .ROUTE Last administered on 08:07; Start 12/02/16 at 07:29; Stop 12/02/16 at 07:30; Status DC Midazolam HCl (Versed Inj) 5 mg STK-MED ONCE .ROUTE Last administered on 08:07; Start 12/02/16 at 07:29; Stop 12/02/16 at 07:30; Status DC Rocuronium Clare (Zemuron Inj) 50 mg STK-MED ONCE .ROUTE Last administered on 12/02/16 08:08; Start 12/02/16 at 07:30; Stop 12/02/16 at 07:31; Status DC Enoxaparin Sodium (Lovenox Inj) 40 mg Q24H SQ Last administered on 12/20/16 09: 04; Start 12/02/16 at 09:00; Stop 12/20/16 at 09:13; Status DC Chlorhexidine Gluconate 15 ml 15 ml BID@08,20 MT Last administered on 12/24/16 20:00; Start 12/02/16 at 08:00; Stop 12/25/16 at 21:39; Status DC Propofol 100 ml @ 0 mls/hr TITRATE IV Last administered on 12/02/16 19:59; Start 12/02/16 at 08:00; Stop 12/03/16 at 07:50; Status DC Fentanyl Citrate (fentaNYL DRIP) 250 ml @ 0 mls/hr TITRATE IV Last administered on 12/03/16 04:05; Start 12/02/16 at 08:00; Stop 12/04/16 at 09:25 ; Status DC Metoprolol Tartrate 2.5 mg 2.5 mg Q6H PRN IV PUSH HR >110 Last administered on 12/20/16 18:38; Start 12/02/16 at 08:15; Stop 12/22/16 at 09:53; Status DC Multivitamins/ Thiamine HCl/ Folic Acid/Sodium Chloride (Mvi-12 Inj/ Thiamine Inj/ Folvite Inj/1/2 NS 500 ml Inj) 511.2 ml @ 125 mls/hr DAILY IV Last administered on 12/04/16 09:21; Start 12/02/16 at 09:00; Stop 12/05/16 at 09:00 ; Status DC Sodium Bicarbonate (Sodium Bicarbonate 8.4% Inj) 50 meq STK-MED ONCE .ROUTE ; Start 12/02/16 at 09:06; Stop 12/02/16 at 09:07; Status DC Sodium Bicarbonate 50 meq 50 meq NOW ONCE IV PUSH Last administered on 11:16; Start 12/02/16 at 09:45; Stop 12/02/16 at 09:46; Status DC Vasopressin/ Dextrose (Pitressin Inj/ D5W 100 ml Inj) 100 ml @ 4.5 mls/hr [id number] IV Last administered on 12/03/16 04:17; Start 12/02/16 at 11:04; Stop 12/06/16 at 07:32; Status DC Sodium Bicarbonate (Sodium Bicarbonate 8.4% Inj) 50 meq ONCE ONCE IV PUSH Last administered on 12/02/16 11:38; Start 12/02/16 at 11:15; Stop 12/02/16 at 11:22; Status DC Rocuronium Clare 50 mg 50 mg BOLUS ONCE IV Last administered on 12/02/16 11 :39; Start 12/02/16 at 11:15; Stop 12/02/16 at 11:22; Status DC Sodium Bicarbonate 50 ml @ As Directed STK-MED ONCE .ROUTE Last administered on 12/02/16 15:53; Start 12/02/16 at 11:06; Stop 12/02/16 at 11:07; Status DC Vancomycin HCl 2000 mg/Sodium Chloride 520 ml @ 250 mls/hr Q18H IV Last administered on 12/02/16 23:46; Start 12/03/16 at 00:00; Stop 12/03/16 at 10:51 ; Status DC Norepinephrine Bitartrate (Levophed-Dextrose Drip) 250 ml @ 0 mls/hr TITRATE IV Last administered on 12/03/16 04:05; Start 12/02/16 at 15:15; Stop 12/08/16 at 10:23; Status DC Terbutaline Sulfate 1 mg 1 mg UNSCH PRN SQ For Extravasation; Start 12/02/16 at 15:15 Sodium Bicarbonate/ Sterile Water (Sodium Bicarbonate 8.4% Inj/Sterile Water For Inj) 1,000 ml @ 150 mls/hr Q6H40M IV Last administered on 12/03/16 04:16 ; Start 12/02/16 at 16:00; Stop 12/03/16 at 07:49; Status DC Iohexol (OMNIPAQUE 350 INJ (Aeronautical Engineering Professor)) 100 ml STK-MED ONCE OTHER ; Start at 12:30; Stop 12/02/16 at 15:48; Status DC Lidocaine HCl (Xylocaine 1% Inj (50 ml)) 50 ml STK-MED ONCE .ROUTE ; Start 12/02 at 19:06; Stop 12/02/16 at 19:07; Status DC Dextrose (D50w (Vial) Inj) 50 ml UNSCH PRN IV HYPOGLYCEMIA-SEE COMMENTS; Start 12/02/16 at 22:30 Glucagon (Glucagon Inj) 1 mg UNSCH PRN OTHER HYPOGLYCEMIA-SEE COMMENTS; Start 12/02/16 at 22:30 Insulin Aspart 1 1 Q4HR SQ Last administered on 12/14/16 04:00; Start at 00:00; Stop 12/14/16 at 08:16; Status DC Midazolam HCl (Versed 100 Mg/ ml Inj) 100 ml @ 0 mls/hr TITRATE IV ; Start 12/03 at 08:00; Stop 12/04/16 at 09:25; Status DC Polyethylene Glycol (Miralax) 17 gm DAILY PO Last administered on 12/27/16 08: 04; Start 12/04/16 at 09:00 Bumetanide (Bumex Inj) 1 mg STK-MED ONCE .ROUTE ; Start 12/03/16 at 11:46; Stop 12/03/16 at 11:47; Status DC Bumetanide 1 mg 1 mg NOW ONCE IV PUSH ; Start 12/03/16 at 15:00; Stop 12/03/16 at 15:01; Status DC Cefepime HCl/ Sodium Chloride (Maxipime Inj/NS Inj) 100 ml @ 200 mls/hr Q8H IV Last administered on 12/06/16 08:16; Start 12/03/16 at 17:00; Stop 12/06/16 at 09:08; Status DC Bumetanide 1 mg 1 mg ONCE ONCE IV PUSH Last administered on 12/04/16 10:00; Start 12/04/16 at 09:30; Stop 12/04/16 at 09:32; Status DC Potassium Chloride (KCl 40 Meq Premix Inj) 100 ml @ 25 mls/hr Q4H IV ; Start at 10:00; Stop 12/04/16 at 17:59; Status DC Morphine Sulfate 2 mg 2 mg Q3H PRN IV PUSH pain 5-10 Last administered on t 05:16; Start 12/04/16 at 09:30; Stop 12/05/16 at 09:01; Status DC Potassium Chloride 100 ml @ 50 mls/hr Q2H PRN IV For Potassium 2.8 - 3.2 mEq/ L Last administered on 12/04/16t 21:17; Start 12/04/16 at 09:30; Stop 12/16/16 at 07:44; Status DC Potassium Chloride (KCl 20 Meq Premix Inj) 100 ml @ 50 mls/hr Q2H PRN IV For Potassium 2.8 - 3.2 mEq/L; Start 12/04/16 at 09:30; Stop 12/16/16 at 07:44; Status DC Potassium Bicarb/ Potassium Chloride 50 meq 50 meq UNSCH PRN PO For Potassium 3.3 - 3.5 mEq/L; Start 12/04/16 at 09:30; Stop 12/16/16 at 07:44; Status DC Potassium Chloride 100 ml @ 25 mls/hr UNSCH PRN IV For Potassium 3.3 - 3.5 mEq /L; Start 12/04/16 at 09:30; Stop 12/16/16 at 07:44; Status DC Potassium Chloride 100 ml @ 50 mls/hr Q2H PRN IV For Potassium 3.3 - 3.5 mEq/L ; Start 12/04/16 at 09:30; Stop 12/16/16 at 07:44; Status DC Magnesium Sulfate/ Sodium Chloride (Magnesium Sulfate Inj/NS Inj) 100 ml @ 50 mls/hr UNSCH PRN IV For Magnesium 0.9 - 1.1 mg/dL; Start 12/04/16 at 09:30; Stop 12/16/16 at 07:44; Status DC Magnesium Oxide 800 mg 800 mg UNSCH PRN PO For Magnesium 1.2 - 1.6 mg/dL; Start 12/04/16 at 09:30; Stop 12/16/16 at 07:44; Status DC Magnesium Sulfate/ Sodium Chloride (Magnesium Sulfate Inj/NS Inj) 100 ml @ 50 mls/hr UNSCH PRN IV For Magnesium 1.2 - 1.6 mg/dL; Start 12/04/16 at 09:30; Stop 12/16/16 at 07:44; Status DC Potassium Phosphate 2000 mg 2,000 mg Q4H PRN PO For Phosphorus < 2.5 mg/dL; Start 12/04/16 at 09:30; Stop 12/16/16 at 07:45; Status DC Sodium Phosphate/ Sodium Chloride (Sodium Phosphate Inj/NS 250 ml Inj) 250 ml @ 42 mls/hr UNSCH PRN IV For Phosphorus < 2.5 mg/dL Last administered on 06:41; Start 12/04/16 at 09:30; Stop 12/16/16 at 07:45; Status DC Potassium Phosphate 2000 mg 2,000 mg UNSCH PRN PO/TUBE SEE LABEL COMMENTS; Start 12/04/16 at 09:30; Stop 12/16/16 at 07:45; Status DC Potassium Phosphate/Sodium Chloride (Potassium Phosphate Inj/NS 250 ml Inj) 260 ml @ 42 mls/hr UNSCH PRN IV SEE LABEL COMMENTS; Start 12/04/16 at 09:30; Stop 12/16/16 at 07:45; Status DC Potassium Bicarb/ Potassium Chloride (K-Lyte Cl Eff) 25 meq ONCE ONCE PO ; Start 12/04/16 at 09:30; Stop 12/04/16 at 09:42; Status DC Bumetanide 1 mg 1 mg ONCE ONCE IV PUSH Last administered on 12/04/16 12:32; Start 12/04/16 at 12:00; Stop 12/04/16 at 12:01; Status DC Calcium Gluconate/ Sodium Chloride (Calcium Gluconate Inj/NS Inj) 110 ml @ 110 mls/hr ONCE ONCE IV Last administered on 12/05/16 10:29; Start 12/05/16 at 09 :30; Stop 12/05/16 at 10:29; Status DC Methylprednisolone Sodium Succinate (SoluMEDROL INJ) 40 mg Q12HR IV PUSH Last administered on 12/10/16 20:09; Start 12/05/16 at 09:00; Stop 12/11/16 at 09:04 ; Status DC Thiamine HCl (Vitamin B1) 100 mg DAILY PO Last administered on 12/28/16 08:14 ; Start 12/05/16 at 09:00 Multivitamins (Theragran) 1 tab DAILY PO Last administered on 12/28/16 08:14; Start 12/05/16 at 09:00 Folic Acid (Folate) 1 mg DAILY PO Last administered on 12/25/16 08:07; Start 12/05/16 at 09:00; Status Hold Morphine Sulfate (Morphine Inj) 2 mg Q2H PRN IV PUSH pain 5-10 Last administered on 12/17/16 01:20; Start 12/05/16 at 10:30; Stop 12/17/16 at 10:52; Status DC Albuterol/ Ipratropium 1 ampule 1 ampule Q4HR NEB NEB Last administered on 03:40; Start 12/06/16 at 08:00; Stop 12/10/16 at 08:00; Status DC Sodium Chloride (1/2 NS 1000 ml Inj) 1,000 ml @ 125 mls/hr Q8H IV Last administered on 12/07/16 21:33; Start 12/06/16 at 07:30; Stop 12/08/16 at 10:23 ; Status DC Rifampin 300 mg 300 mg Q12HR PO Last administered on 12/28/16 08:13; Start at 09:15; Stop 01/15/17 at 23:00 Cefazolin Sodium/ Dextrose (Ancef 2 Gm Premix) 50 ml @ 100 mls/hr Q8H IV Last administered on 12/28/16 10:46; Start 12/06/16 at 10:00; Stop 01/15/17 at 23:00 Levofloxacin (Levaquin) 750 mg Q24H PO Last administered on 12/12/16 08:58; Start 12/06/16 at 10:00; Stop 12/13/16 at 09:59; Status DC Insulin Detemir (Levemir Inj) 5 units Q12HR SQ Last administered on 12/13/16 21:29; Start 12/07/16 at 09:00; Stop 12/14/16 at 08:17; Status DC Methylnaltrexone Clare (Relistor Inj) 12 mg ONCE ONCE SQ Last administered on 12/07/16 16:58; Start 12/07/16 at 15:00; Stop 12/07/16 at 15:11; Status DC Metoprolol Tartrate (Lopressor Inj) 2.5 mg ONCE ONCE IV PUSH Last administered on 12/08/16 15:15; Start 12/08/16 at 15:00; Stop 12/08/16 at 15:01 ; Status DC Diltiazem HCl (Cardizem Inj) 10 mg ONCE ONCE IV ; Start 12/08/16 at 15:15; Stop 12/08/16 at 16:09; Status DC Metoprolol Tartrate (Lopressor) 50 mg Q12HR PO Last administered on 12/13/16 20:52; Start 12/08/16 at 21:00; Stop 12/14/16 at 09:12; Status DC Diltiazem HCl (Cardizem) 60 mg Q6H PO Last administered on 12/18/16 17:25; Start 12/09/16 at 05:00; Stop 12/18/16 at 18:39; Status DC Lorazepam (Ativan Inj) 1 mg Q4H PRN IV PUSH ANXIETY AND/OR AGITATION Last administered on 12/28/16 08:13; Start 12/09/16 at 15:15 Haloperidol Lactate (Haldol Inj) 2 mg Q8H PRN IM AGITATION AND/OR HALLUCINATION ; Start 12/10/16 at 17:00 Methylprednisolone Sodium Succinate (SoluMEDROL INJ) 20 mg Q12HR IV PUSH Last administered on 12/13/16 20:50; Start 12/11/16 at 21:00; Stop 12/13/16 at 22:00 ; Status DC Atorvastatin Calcium (Lipitor) 40 mg HS PO Last administered on 12/24/16 21:00 ; Start 12/12/16 at 21:00; Status Hold Sodium Chloride (NS Flush) See Protocol DAILY IV FLUSH Last administered on 08:04; Start 12/13/16 at 09:00 Sodium Chloride (NS Flush) See Protocol UNSCH PRN IV FLUSH SEE PROTOCOL TABLE; Start 12/12/16 at 17:00 Heparin Sodium (Porcine) (Heparin Central Flush) See Protocol DAILY IV FLUSH Last administered on 12/27/16 08:05; Start 12/13/16 at 09:00 Heparin Sodium (Porcine) (Heparin Central Flush) See Protocol UNSCH PRN IV FLUSH SEE PROTOCOL TABLE; Start 12/12/16 at 17:00 Sodium Chloride UNSCH PRN IV FLUSH SEE PROTOCOL TABLE Last administered on 12/19 01:59; Start 12/12/16 at 17:00 Sodium Chloride (NS 250 ml Inj) 250 ml @ 15 mls/hr ONCE ONCE IV Last administered on 12/13/16 09:34; Start 12/13/16 at 08:15; Stop 12/14/16 at 00:54 ; Status DC Acetaminophen (Tylenol) 650 mg Q4H PRN PO SEE LABEL COMMENTS; Start 12/13/16 at 08:15; Stop 12/13/16 at 12:16; Status DC Diphenhydramine HCl (Benadryl) 25 mg Q4H PRN PO SEE LABEL COMMENTS; Start 12/13 at 08:15; Stop 12/13/16 at 12:16; Status Cancel Prednisone (Deltasone) 40 mg DAILY PO Last administered on 12/16/16 08:53; Start 12/14/16 at 09:00; Stop 12/16/16 at 09:28; Status DC Pantoprazole Sodium (Protonix) 40 mg Q12HR PO Last administered on 12/22/16 09: 01; Start 12/13/16 at 09:00; Stop 12/22/16 at 09:49; Status DC Diphenhydramine HCl (Benadryl) 25 mg Q4H PRN PO SEE LABEL COMMENTS; Start 12/13 at 17:15; Stop 12/13/16 at 21:16; Status DC Insulin Aspart (NovoLOG SUPPLEMENTAL SCALE) 1 ACHS SLIDING SCALE SQ Last administered on 12/24/16 21:13; Start 12/14/16 at 11:00; Stop 12/25/16 at 21:39 ; Status DC Insulin Detemir (Levemir Inj) 6 units Q12HR SQ Last administered on 12/28/16 08:15; Start 12/14/16 at 09:00 Metoprolol Tartrate (Lopressor) 75 mg Q12HR PO Last administered on 12/14/16 12:00; Start 12/14/16 at 12:00; Stop 12/14/16 at 16:10; Status DC Etomidate (Amidate Inj) 25 mg ONCE ONCE IVP ; Start 12/14/16 at 12:15; Stop at 18:48; Status DC Fentanyl Citrate (fentaNYL INJ) 200 mcg ONCE ONCE IV ; Start 12/14/16 at 12:15 ; Stop 12/14/16 at 18:48; Status DC Succinylcholine Chloride (Quelicin Inj) 150 mg ONCE ONCE IV ; Start 12/14/16 at 12:15; Stop 12/14/16 at 18:48; Status DC Metoprolol Tartrate (Lopressor) 100 mg Q12HR PO Last administered on 12/22/16 09:01; Start 12/14/16 at 21:00; Stop 12/22/16 at 12:48; Status DC Metoprolol Tartrate 25 mg 25 mg ONCE ONCE PO Last administered on 12/14/16 16 :55; Start 12/14/16 at 16:15; Stop 12/14/16 at 16:16; Status DC Iron Sucrose/ Sodium Chloride (Venofer Inj/NS Inj) 105 ml @ 105 mls/hr DAILY IV Last administered on 12/18/16 08:01; Start 12/16/16 at 09:00; Stop 12/18/16 at 09:59; Status DC Nitroglycerin (Nitrostat Sl) 0.4 mg Q5M PRN SL CHEST PAIN; Start 12/16/16 at 00: 15 Prednisone (Deltasone) 20 mg DAILY PO Last administered on 12/20/16 09:04; Start 12/17/16 at 09:00; Stop 12/20/16 at 10:01; Status DC Gadodiamide (Omniscan Pf Inj) 21 ml STK-MED ONCE IV Last administered on 15:41; Start 12/17/16 at 15:41; Stop 12/17/16 at 15:42; Status DC Oxycodone HCl (Roxicodone) 10 mg Q4H PRN PO PAIN 6-10 Last administered on 02:37; Start 12/17/16 at 19:00; Stop 12/21/16 at 08:51; Status DC Diltiazem HCl (Cardizem Inj) 20 mg ONCE PRN IV if HR 110-130 Last administered on 12/17/16 21:49; Start 12/17/16 at 21:30; Stop 12/17/16 at 22:30; Status DC Diltiazem HCl 20 mg 20 mg ONCE ONCE IVP ; Start 12/17/16 at 21:30; Stop 12/17/16 at 21:40; Status DC Diltiazem HCl/ Sodium Chloride (Cardizem Inj/NS Inj) 125 ml @ 0 mls/hr TITRATE IV Last administered on 12/17/16 22:12; Start 12/17/16 at 21:30; Stop 12/19/16 at 18:12; Status DC Lorazepam (Ativan) 0.5 mg DAILY PRN PO ANXIETY Last administered on 12/19/16 08 :29; Start 12/18/16 at 15:45; Status Hold Diltiazem HCl (Cardizem) 90 mg Q6H PO Last administered on 12/25/16 12:14; Start 12/18/16 at 23:00; Status Hold Diltiazem HCl (Cardizem) 30 mg NOW ONCE PO Last administered on 12/18/16 19:33 ; Start 12/18/16 at 19:30; Stop 12/18/16 at 19:31; Status DC Diltiazem HCl (Cardizem Inj) 10 mg NOW ONCE IV Last administered on 12/18/16 19:32; Start 12/18/16 at 19:30; Stop 12/18/16 at 19:31; Status DC Alteplase, Recombinant (Cathflo Activase Inj) 2 mg UNSCH X1 IV FLUSH ; Start at 19:45; Stop 12/18/16 at 23:00; Status DC Metoprolol Tartrate (Lopressor Inj) 5 mg ONCE ONCE IV PUSH Last administered on 12/19/16 05:40; Start 12/19/16 at 05:30; Stop 12/19/16 at 05:31; Status DC Digoxin (Lanoxin Inj) 0.5 mg NOW STAT IVS Last administered on 12/19/16 17:19 ; Start 12/19/16 at 16:51; Stop 12/19/16 at 17:04; Status DC Digoxin (Lanoxin Inj) 0.25 mg Q6H IVS Last administered on 12/20/16 03:54; Start 12/19/16 at 23:00; Stop 12/20/16 at 05:01; Status DC Digoxin (Lanoxin) 0.125 mg DAILY PO Last administered on 12/21/16 08:29; Start 12/20/16 at 09:00; Stop 12/21/16 at 11:59; Status DC Furosemide (Lasix Inj) 20 mg ONCE ONCE IV PUSH Last administered on 12/19/16 18:12; Start 12/19/16 at 17:45; Stop 12/19/16 at 17:46; Status DC Potassium Bicarb/ Potassium Chloride 25 meq 25 meq ONCE ONCE PO Last administered on 12/19/16 18:12; Start 12/19/16 at 17:45; Stop 12/19/16 at 17:46; Status DC Diltiazem HCl/ Sodium Chloride (Cardizem Inj/NS Inj) 125 ml @ 0 mls/hr TITRATE IV Last administered on 12/28/16 04:28; Start 12/19/16 at 18:15 Diltiazem HCl (Cardizem Inj) 18 mg NOW ONCE IV Last administered on 12/19/16 19:29; Start 12/19/16 at 18:15; Stop 12/19/16 at 18:16; Status DC Apixaban (Eliquis) 5 mg BID PO ; Start 12/20/16 at 10:00; Stop 12/20/16 at 10:00; Status DC Apixaban (Eliquis) 5 mg BID PO Last administered on 12/21/16 21:02; Start at 10:00; Stop 12/22/16 at 09:49; Status DC Diltiazem HCl (Cardizem Inj) 10 mg ONCE ONCE IV ; Start 12/20/16 at 09:30; Stop 12/20/16 at 09:31; Status DC Prednisone (Deltasone) 10 mg DAILY PO Last administered on 12/28/16 08:14; Start 12/21/16 at 09:00 Atropine Sulfate (Atropine Inj) 1 mg STK-MED ONCE .ROUTE ; Start 12/20/16 at 12: 45; Stop 12/20/16 at 12:46; Status DC Epinephrine HCl (EPINEPHrine (1:10,000) INJ) 1 mg STK-MED ONCE .ROUTE ; Start at 12:45; Stop 12/20/16 at 12:46; Status DC Acetaminophen (Tylenol) 650 mg ONCE ONCE PO Last administered on 12/20/16 18: 39; Start 12/20/16 at 18:45; Stop 12/20/16 at 18:46; Status DC Diphenhydramine HCl (Benadryl) 25 mg ONCE ONCE PO Last administered on 18:39; Start 12/20/16 at 18:45; Stop 12/20/16 at 18:46; Status DC Calcium Carbonate (Tums Chew) 500 mg ONCE ONCE CHEW Last administered on 00:45; Start 12/21/16 at 00:45; Stop 12/21/16 at 00:46; Status DC Calcium Carbonate (Tums Chew) 500 mg ONCE ONCE CHEW Last administered on 04:52; Start 12/21/16 at 05:00; Stop 12/21/16 at 05:01; Status DC Oxycodone HCl (Roxicodone) 15 mg Q4H PRN PO PAIN 6-10 Last administered on 12/28 13:43; Start 12/21/16 at 11:00 Digoxin (Lanoxin Inj) 0.5 mg NOW STAT IVS Last administered on 12/21/16 12:41 ; Start 12/21/16 at 11:49; Stop 12/21/16 at 11:50; Status DC Digoxin (Lanoxin Inj) 0.25 mg Q6H IVS Last administered on 12/21/16 17:19; Start 12/21/16 at 18:00; Stop 12/22/16 at 00:01; Status DC Digoxin (Lanoxin) 0.25 mg DAILY PO Last administered on 12/25/16 08:06; Start 12/22/16 at 09:00; Status Hold Calcium Carbonate (Tums Chew) 500 mg ONCE ONCE CHEW ; Start 12/22/16 at 01:00; Stop 12/22/16 at 01:01; Status DC Heparin Sodium (Porcine) (Heparin Inj) 5,000 units UNSCH PRN IV APTT LESS THAN 25; Start 12/22/16 at 15:15; Stop 12/23/16 at 00:05; Status DC Heparin Sodium (Porcine) 2500 units 2,500 units UNSCH PRN IV APTT 25 TO 39; Start 12/22/16 at 15:15; Stop 12/23/16 at 00:05; Status DC Heparin Sodium/ Dextrose (Heparin-D5W Inj) 250 ml @ 0 mls/hr TITRATE IV ; Start 12/22/16 at 09:15; Stop 12/22/16 at 09:42; Status DC Sucralfate (Carafate Liq) 1 gm ACHS PO Last administered on 12/28/16 12:09; Start 12/22/16 at 11:00 Metoprolol Tartrate (Lopressor Inj) 5 mg Q1HR PRN IV PUSH RAPID HEART RATE Last administered on 12/24/16 22:59; Start 12/22/16 at 09:45 Pantoprazole Sodium (Protonix Inj) 40 mg Q12H IV PUSH Last administered on 12/28 10:46; Start 12/22/16 at 10:00 Aspirin 81 mg 81 mg DAILY PO Last administered on 12/25/16 08:06; Start at 09:00; Status Hold Heparin Sodium/ Dextrose (Heparin-D5W Inj) 250 ml @ 0 mls/hr TITRATE IV Last administered on 12/22/16 12:43; Start 12/22/16 at 10:00; Stop 12/23/16 at 00:05; Status DC Metoprolol Tartrate (Lopressor) 25 mg Q6HR PO Last administered on 12/28/16 10 :46; Start 12/22/16 at 13:00 Furosemide (Lasix Inj) 20 mg ONCE ONCE IV PUSH Last administered on 12/22/16 12:44; Start 12/22/16 at 13:00; Stop 12/22/16 at 13:01; Status DC Furosemide (Lasix Inj) 20 mg ONCE IV PUSH Last administered on 12/23/16 02:31; Start 12/22/16 at 23:00; Stop 12/23/16 at 06:00; Status DC Morphine Sulfate (Morphine Inj) 2 mg Q4H PRN IV PUSH pain >5 Last administered on 12/28/16 12:08; Start 12/23/16 at 00:00 Diphenhydramine HCl (Benadryl) 25 mg ONCE ONCE PO Last administered on 04:04; Start 12/23/16 at 23:45; Stop 12/23/16 at 23:46; Status DC Acetaminophen (Tylenol) 650 mg ONCE ONCE PO Last administered on 12/24/16 04: 04; Start 12/23/16 at 23:45; Stop 12/23/16 at 23:46; Status DC Furosemide 20 mg 20 mg DAILY IV PUSH Last administered on 12/28/16t 08:13; Start 12/24/16 at 09:15 Lactated Ringer's 1,000 ml @ 30 mls/hr Q24H PRN IV SEE LABEL COMMENTS; Start at 22:00; Stop 12/26/16 at 14:00; Status DC Sodium Chloride (NS 500 ml Inj) 500 ml @ 30 mls/hr [id number] PRN IV SEE LABEL COMMENTS; Start 12/24/16 at 22:00; Stop 12/27/16 at 21:59; Status DC Metoprolol Tartrate (Lopressor) 25 mg HEALTH NAVIGATOR PRN PO SEE LABEL COMMENTS; Start 12/24/16 at 22:00; Stop 12/27/16 at 21:59; Status DC Povidone Iodine (Betadine 5% Antisepsis Kit) 1 applic HEALTH NAVIGATOR PRN EACH NARE SEE LABEL COMMENTS; Start 12/24/16 at 22:00; Stop 12/27/16 at 21:59; Status DC Chlorhexidine Gluconate (Chlorhexidine 2% Cloth) 3 pack HEALTH NAVIGATOR PRN TOPICAL SEE LABEL COMMENTS; Start 12/24/16 at 22:00; Stop 12/27/16 at 21:59; Status DC Insulin Human Regular See Protocol Table ... HEALTH NAVIGATOR PRN SQ SEE PROTOCOL TABLE ; Start 12/24/16 at 22:00; Stop 12/25/16 at 21:37; Status DC Propofol (Diprivan 1000 Mg/100ml Inj) 100 ml @ As Directed STK-MED ONCE .ROUTE ; Start 12/25/16 at 19:27; Stop 12/25/16 at 19:28; Status DC Midazolam HCl (Versed Inj) 2 mg STK-MED ONCE .ROUTE ; Start 12/25/16 at 20:09; Stop 12/25/16 at 20:10; Status DC Morphine Sulfate 4 mg 4 mg STK-MED ONCE .ROUTE ; Start 12/25/16 at 20:10; Stop 12/25/16 at 20:11; Status DC Propofol (Diprivan 1000 Mg/100ml Inj) 100 ml @ 0 mls/hr TITRATE IV ; Start 12/25 at 20:15; Stop 12/25/16 at 21:28; Status DC Propofol (Diprivan 200 Mg/20 ml Inj) 200 mg STK-MED ONCE IV ; Start 12/25/16 at 18:30; Stop 12/25/16 at 20:15; Status DC Phenylephrine HCl (Neosynephrine/ NS 1000 Mcg/10ml Syr) 500 mcg STK-MED ONCE IV ; Start 12/25/16 at 18:32; Stop 12/25/16 at 20:17; Status DC Lactated Ringer's (Lr 1000 ml Inj) 1,000 ml STK-MED ONCE IV ; Start 12/25/16 at 18:32; Stop 12/25/16 at 20:17; Status DC Sodium Chloride (NS 500 ml Inj) 500 ml STK-MED ONCE IV ; Start 12/25/16 at 18:32 ; Stop 12/25/16 at 20:17; Status DC Miscellaneous Information ALL NURSING DEPARTME... UNSCH PRN .XX SEE LABEL COMMENTS; Start 12/25/16 at 20:30; Stop 12/26/16 at 20:29; Status DC Phenylephrine HCl 40 mg 40 mg STK-MED ONCE .ROUTE ; Start 12/25/16 at 20:25; Stop 12/25/16 at 20:26; Status DC Propofol (Diprivan 1000 Mg/100ml Inj) 100 ml @ 0 mls/hr TITRATE IV Last administered on 12/26/16t 06:08; Start 12/25/16 at 20:30 Phenylephrine HCl 1000 mcg 1,000 mcg STK-MED ONCE .ROUTE ; Start 12/25/16 at 20: 28; Stop 12/25/16 at 20:29; Status DC Fentanyl Citrate 250 ml @ As Directed STK-MED ONCE .ROUTE ; Start 12/25/16 at 20:34; Stop 12/25/16 at 20:35; Status DC Phenylephrine HCl/ Dextrose (Neosynephrine Inj/D5W 500 ml Inj) 500 ml @ 0 mls/ hr TITRATE IV Last administered on 12/27/16t 03:16; Start 12/25/16 at 20:45 Terbutaline Sulfate 1 mg 1 mg UNSCH PRN SQ FOR EXTRAVASATION PROTOCOL; Start at 20:45 Fentanyl Citrate (fentaNYL DRIP) 250 ml @ 0 mls/hr TITRATE IV ; Start 12/25/16 at 21:00 Magnesium Oxide 800 mg 800 mg UNSCH PRN PO For Magnesium 1.2 - 1.6 mg/dL Last administered on 12/27/16t 06:46; Start 12/25/16 at 21:00 Magnesium Sulfate 4 gm/Sodium Chloride 100 ml @ 50 mls/hr UNSCH PRN IV For Magnesium 0.9 - 1.1 mg/dL; Start 12/25/16 at 21:00 Magnesium Sulfate 2 gm/Sodium Chloride 100 ml @ 50 mls/hr UNSCH PRN IV For Magnesium 1.2 - 1.6 mg/dL; Start 12/25/16 at 21:00 Potassium Chloride 100 ml @ 50 mls/hr Q2H PRN IV For Potassium 2.8 - 3.2 mEq/L ; Start 12/25/16 at 21:00 Potassium Chloride 100 ml @ 50 mls/hr Q2H PRN IV For Potassium 3.3 - 3.5 mEq/L ; Start 12/25/16 at 21:00 Potassium Chloride 100 ml @ 50 mls/hr Q2H PRN IV For Potassium 2.8 - 3.2 mEq/L ; Start 12/25/16 at 21:00 Potassium Chloride (KCl 40 Meq Premix Inj) 100 ml @ 25 mls/hr UNSCH PRN IV For Potassium 3.3 - 3.5 mEq/L; Start 12/25/16 at 21:00 Potassium Phosphate (K-Phos) 2,000 mg Q4H PRN PO For Phosphorus < 2.5 mg/dL; Start 12/25/16 at 21:00 Potassium Phosphate 2000 mg 2,000 mg UNSCH PRN PO/TUBE SEE LABEL COMMENTS; Start 12/25/16 at 21:00 Potassium Phosphate 30 mmol/ Sodium Chloride 260 ml @ 42 mls/hr UNSCH PRN IV SEE LABEL COMMENTS; Start 12/25/16 at 21:00 Sodium Phosphate/ Sodium Chloride (Sodium Phosphate Inj/NS 250 ml Inj) 250 ml @ 42 mls/hr UNSCH PRN IV For Phosphorus < 2.5 mg/dL; Start 12/25/16 at 21:00 Chlorhexidine Gluconate (Peridex 0.12% Liq) 15 ml BID@08,20 MT Last administered on 12/27/16 07:40; Start 12/26/16 at 08:00 Dextrose (D50w (Vial) Inj) 25 ml UNSCH PRN IV PUSH HYPOGLYCEMIA-SEE COMMENTS; Start 12/25/16 at 21:00 Insulin Human Regular (NovoLIN R SUPPLEMENTAL SCALE) 1 Q6HR SQ Last administered on 12/28/16 12:59; Start 12/26/16 at 00:00 Albuterol/ Ipratropium (Duoneb Neb) 1 ampule Q6HR NEB INH Last administered on 12/28/16 07:38; Start 12/25/16 at 22:00 Albuterol/ Ipratropium 1 ampule 1 ampule Q2HR NEB PRN INH WHEEZING; Start 12/25 at 21:00 Dextrose 1,000 ml @ 42 mls/hr [id number] IV Last administered on 12/25/16 23:27 ; Start 12/25/16 at 21:00; Stop 12/26/16 at 14:01; Status DC Amiodarone HCl 150 mg/Dextrose 100 ml @ 600 mls/hr ONCE ONCE IV ; Start at 21:00; Stop 12/25/16 at 21:09; Status DC Amiodarone HCl 900 mg/Dextrose 500 ml @ 0 mls/hr CONTINUOUS IV ; Start 12/25/16 at 21:00; Stop 12/25/16 at 21:13; Status DC Magnesium Sulfate/ Dextrose 100 ml @ 100 mls/hr Q1H IV ; Start 12/25/16 at 21: 00; Stop 12/25/16 at 22:59; Status DC Potassium Chloride 100 ml @ 50 mls/hr BOLUS ONCE IV ; Start 12/25/16 at 21:00 ; Stop 12/25/16 at 22:59; Status DC Sodium Chloride (NS 250 ml Inj) 250 ml @ As Directed STK-MED ONCE .ROUTE ; Start 12/25/16 at 21:04; Stop 12/25/16 at 21:05; Status DC Amiodarone HCl 150 mg 150 mg STK-MED ONCE .ROUTE ; Start 12/25/16 at 21:05; Stop 12/25/16 at 21:06; Status DC Amiodarone HCl 450 mg/Dextrose 250 ml @ 0 mls/hr CONTINUOUS IV Last administered on 12/28/16 06:33; Start 12/25/16 at 21:15 Sodium Chloride 1,000 ml @ 999 mls/hr BOLUS ONCE IV Last administered on 12/26 14:17; Start 12/26/16 at 14:00; Stop 12/26/16 at 15:00; Status DC Sodium Chloride 1,000 ml @ 75 mls/hr [id number] IV Last administered on 05:35; Start 12/26/16 at 14:00 Amiodarone HCl/ Dextrose (Cordarone Inj/ D5W 100 ml Inj) 100 ml @ 100 mls/hr ONCE ONCE IV Last administered on 12/26/16 23:27; Start 12/26/16 at 23:00; Stop 12/26/16 at 23:59; Status DC Clopidogrel Bisulfate (Plavix) 150 mg NOW ONCE PO Last administered on 13:43; Start 12/28/16 at 12:30; Stop 12/28/16 at 12:34; Status DC Aspirin (Ecotrin Ec) 162 mg NOW ONCE PO Last administered on 12/28/16 13:43; Start 12/28/16 at 12:30; Stop 12/28/16 at 12:34; Status DC Clopidogrel Bisulfate (Plavix) 75 mg DAILY PO ; Start 12/29/16 at 09:00 Aspirin (Ecotrin Ec) 162 mg DAILY PO ; Start 12/29/16 at 09:00 A/P Assessment and Plan A/P Hemoptysis, improved. -s/p EUS / EGD with esophageal stent placement. -Heparin drip DC'ed by Dr. Krause. -continue Carafate and Protonix -GI following. Septic shock, resolved -Secondary to MSSA bacteremia. MSSA bacteremia -[id number] infection - s/p removal of [id number]-Mgbv by GS. Dressing changes per GS. Appreciate assistance. - Catheter tip culture blood culture and wound culture also positive for MSSA - Continue abx per ID, on IV Ancef, po Rifampin x 6 weeks from port removal and (completed course of Levaquin PO on 12/13). LFTs 12/15/16 wnl, continue antibiotics/Ancef until 01/15/17. -Per infectious disease once patient is ready for discharged to notify her so order can be placed. Acute metabolic encephalopathy- resolved -Encephalopathy most likely secondary to severe sepsis -Continue Thiamine, MVI, folic acid. Acute hypoxemic respiratory failure secondary to COPD exacerbation, resolved. - Emergently intubated and placed on mechanical ventilation 12/02/16, extubated successfully 12/03/16 - Continue with oxygen keep sat >92% - continue neb treatment - s/p IV Solu-Medrol , continue to taper down prednisone. Lower extremity edema. -Secondary to being volume overloaded. -Continue with IV Lasix. NSTEMI/atrial fibrillation with RVR - difficult to control. still on cardizem and Amiodarone drip. - s/p PCI to LCx by Dr. Krause on 11/30/16 - Continuemetoprolol,cardizem . -restarted on Aspirin and Plavix. - Anticoagulation contraindicated secondary to hematemesis -continue to monitor and adjust the regimen as needed. - 2-D echo no veg, EF 50-55% -Cardiology following. 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 Patient will have a EUS. - on Protonix - Oncology following. He will need weekly Erbitux and XRT outpatient. - Status post surgical resection for L parotid SCC. plan for chemo and radiation per oncology. Anemia -Hb now fairly stable - s/p 2 unit PRBC. Per heme/onc recs, transfuse if Hb<8. Monitor H&H. Liver cirrhosis -stable -Follow-up as outpatient. Diabetes - SSI ( medium scale) and Levemir 6 units BID for glycemic control. Monitor BS . -blood sugar levels expected to improve as steroid is being tapered off. -PROPH: - Bilateral lower extremity SCDs. palliative care following. still ill looking. will continue to monitor in ICU for now. d/w the RN at the bedside. Zamzam Kim MD Dec 28, 2016 13:56 Zamzam Kim MD Dec 28, 2016 13:56
[2016-12-28 19:57] LABS: BLOOD GAS BASE EXCESS 3.8 mmol/L (-2-2); BLOOD GAS HCO3 28 mmol/L (22-26); BLOOD GAS METHEMOGLOBIN 0.6 % (0-2); BLOOD GAS O2 HGB SATURATION 96 % (90-100); BLOOD GAS OXYGEN CONTENT 12.2 Vol % (12.0-20.0); BLOOD GAS PCO2 41 mmHg (38-42); BLOOD GAS PO2 97 mmHg (61-120); CRITICAL VALUE NO; DRAW SITE ART LINE; LITER FLOW 9 L/M; OXYGEN DEVICE SIMPLE MASK; STAT YES; TEMP CORR TO 98.6
[2016-12-28] MEDS ORDERED: FUROSEMIDE 40 MG/4 ML VIAL IV PUSH ONE (23:00)
--- NOTE | 2016-12-28 23:12 | RADRPT ---
EXAM DATE/TIME: 12/28/2016 22:28 [facility] COMPARISON: CHEST SINGLE AP, December 26, 2016, 3:45. INDICATIONS : Short of breath. MEDICAL HISTORY : None. SURGICAL HISTORY : None. ENCOUNTER: Subsequent ACUITY: 1 month PAIN SCORE: 0/10 LOCATION: Bilateral chest FINDINGS: Single AP view of the chest. Increase in severity of bilateral pulmonary parenchymal opacity with per ihilar and lower lung zone predominance. Cardiac silhouette is enlarged but unchanged. Bilateral pleu ral effusions unchanged. CONCLUSION: Increase in bilateral pulmonary opacity likely representing pulmonary edema. Persistent cardiac silho uette enlargement and bilateral pleural effusions. Jarod Mcrae MD on December 28, 2016 at 23:09 Board Certified Radiologist. This report was verified electronically.
[2016-12-29] VITALS (14 sets, daily range): BP systolic 126–147; BP diastolic 53–64; PULSE 97–130; RESP 14–25; TEMP 97.6–99.7; O2SAT 94–100
[2016-12-29] MEDS: AMIODARONE INJ 450 MG in D5W (EXCEL BAG) 241 ML IV SCH ×2 (01:46→13:56)
[2016-12-29] MEDS: DILTIAZEM 125 MG/NS 100 ML IV SCH ×8 (01:46→21:38)
[2016-12-29] MEDS: ceFAZolin 2 GM PREMIX 50 ML IV SCH ×3 (02:08→17:49)
[2016-12-29] MEDS: MORPHINE SULFATE 4 MG/ML INJ IV PUSH PRN ×3 (03:38→14:08)
[2016-12-29] MEDS: RESP: ALBUTEROL 2.5 MG/IPRATROPIUM 0.5 MG NEB (SCH) INH ×4 (04:04→21:09)
[2016-12-29 06:06] LABS: HEMATOCRIT 25.7 % (39.0-51.0); MEAN CELL VOLUME 87.5 FL (80.0-100.0); MEAN CORPUSCULAR HEMOGLOBIN 29.2 PG (27.0-34.0); MEAN CORPUSCULAR HGB CONC 33.4 % (32.0-36.0); PLATELET COUNT 162 TH/MM3 (150-450); RED BLOOD COUNT 2.94 MIL/MM3 (4.50-5.90); RED CELL DISTRIBUTION WIDTH 20.1 % (11.6-17.2); REVIEW FLAG FINAL; WHITE BLOOD COUNT 8.5 TH/MM3 (4.0-11.0)
[2016-12-29] MEDS: SUCRALFATE 1 GM/10 ML CUP PO SCH ×4 (06:19→20:13)
[2016-12-29] MEDS: METOPROLOL TARTRATE 25 MG TAB PO SCH ×4 (06:19→23:09)
[2016-12-29 06:42] LABS: POTASSIUM 3.5 MEQ/L (3.5-5.1)
[2016-12-29] MEDS: INSULIN NovoLIN REGULAR SUPPLEMENTAL SCALE SQ SCH ×4 (06:51→23:09)
[2016-12-29 06:58] LABS: CALCIUM-PROTEIN CORRECTED 8.1 MG/DL (8.5-10.1)
[2016-12-29] MEDS: MULTIVITAMIN TAB PO SCH (07:44)
[2016-12-29] MEDS: predniSONE 5 MG TAB PO SCH (07:44)
[2016-12-29] MEDS: ASPIRIN EC 81 MG TABEC PO SCH (07:44)
[2016-12-29] MEDS: CLOPIDOGREL 75 MG TAB PO SCH (07:44)
[2016-12-29] MEDS: DOCUSATE SODIUM 50 MG/SENNA 8.6 MG TAB PO SCH ×2 (07:44→20:13)
[2016-12-29] MEDS: SODIUM CHLORIDE 0.9% FLUSH 10 ML FLUSH IV FLUSH SCH ×3 (07:46→20:13)
[2016-12-29] MEDS: CHLORHEXIDINE 0.12% (ORAL KIT) 15 ML CUP MT SCH ×2 (07:46→19:30)
[2016-12-29] MEDS: POLYETHYLENE GLYCOL 17 GM PKG PO SCH (07:47)
[2016-12-29] MEDS: FUROSEMIDE 20 MG/2 ML VIAL IV PUSH SCH (07:47)
[2016-12-29] MEDS: THIAMINE HCL 100 MG TAB PO SCH (07:56)
[2016-12-29] MEDS: INSULIN DETEMIR 100 UNITS/ML VIAL SQ SCH ×2 (07:57→20:20)
[2016-12-29] MEDS: PANTOPRAZOLE SODIUM 40 MG VIAL IV PUSH SCH ×2 (08:15→20:13)
[2016-12-29] MEDS: RIFAMPIN 150 MG CAP PO SCH ×2 (08:57→20:12)
[2016-12-29] MEDS: POTASSIUM CHLOR 20 MEQ PREMIX 100 ML IV PRN ×2 (09:32→09:33)
--- NOTE | 2016-12-29 10:22 | HHI.PR ---
Subjective Remarks ill looking. still with rapid a-fib. has on and off chest pain. no abdominal pain. afebrile. d/w the RN. Objective Vitals Vital Signs Date Time Temp Pulse Resp B/P Pulse Ox O2 Delivery O2 Flow Rate FiO2 12/29/16 10:00 130 12/29/16 09:48 97 Simple Mask 5.00 12/29/16 08:21 22 12/29/16 08:00 98 Simple Mask 5.00 12/29/16 08:00 127 12/29/16 08:00 99.0 127 24 147/64 95 12/29/16 06:00 130 12/29/16 04:00 129 12/29/16 04:00 99.7 129 14 134/59 98 12/29/16 02:00 128 12/29/16 00:00 98.6 97 25 138/64 100 12/29/16 00:00 97 12/28/16 22:00 127 12/28/16 20:00 95 Simple Mask 9.00 12/28/16 20:00 99.1 126 29 169/76 95 12/28/16 20:00 126 12/28/16 19:34 97 Simple Mask 9.00 12/28/16 18:00 127 12/28/16 16:00 98.6 126 21 145/58 97 12/28/16 16:00 126 12/28/16 14:00 127 12/28/16 12:00 98.3 128 22 144/62 97 Automatic Cuff 12/28/16 12:00 128 I/O 12/28/16 12/28/16 12/28/16 12/29/16 12/29/16 12/29/16 07:00 15:00 23:00 07:00 15:00 23:00 Intake Total 1138 ml 1752 ml 1075 ml 402 ml Output Total 400 ml 1750 ml 950 ml 2600 ml Balance 738 ml 2 ml 125 ml -2198 ml Intake Oral 150 ml 840 ml 120 ml 30 ml IV Total 988 ml 912 ml 955 ml 372 ml Output Urine Total 400 ml 1750 ml 950 ml 2600 ml # Bowel Movements 1 Result Diagram: 12/29/16 0512 12/29/16 0512 Imaging Last Impressions Chest X-Ray 12/28/16 0000 Signed Impressions: Service Date/Time: Wednesday, December 28, 2016 22:28 - CONCLUSION: Increase in bilateral pulmonary opacity likely representing pulmonary edema. Persistent cardiac silhouette enlargement and bilateral pleural effusions. Jarod Mcrae MD GI Procedure 12/25/16 0000 Signed Impressions: Service Date/Time: December 19:33 - CONCLUSION: Spot film as above. Everett Pollock MD FACR Barium Swallow X-Ray 12/20/16 0000 Signed Impressions: Service Date/Time: Tuesday, December 20, 2016 13:15 - CONCLUSION: 1. The distal half of the esophagus demonstrates irregular luminal narrowing consistent with the patient's history of esophageal adenocarcinoma. 2. Mild dilatation of the esophagus immediately proximal to the esophageal mass. However, there are no signs of obstruction. 3. Small hiatal hernia. Washington Marroquin MD Abdomen MRI 12/17/16 0000 Signed Impressions: Service Date/Time: Saturday, December 17, 2016 13:59 - CONCLUSION: 1. No acute finding is identified to explain the abdominal pain. 2. Stable thickening of the distal esophagus. There is a single mildly enlarged left gastric lymph node measuring 12 x 10 mm. 3. Moderate sized bilateral pleural effusions, left larger than right, with associated compressive atelectasis. Washington Marroquin MD Head CT 12/01/16 0000 Signed Impressions: Service Date/Time: Thursday, December 01, 2016 07:59 - CONCLUSION: 1. Questionable area of low attenuation left temporal lobe could be artifact versus less likely infarct. MRI may be warranted based on clinical history. 2. No midline shift or mass effect. 3. No intraparenchymal hemorrhage. Jagjit Tapia MD Brain MRI 12/01/16 0000 Signed Impressions: Service Date/Time: Thursday, December 01, 2016 12:07 - CONCLUSION: Normal examination. Barrett Rodriguez MD Abdomen X-Ray 12/01/16 0000 Signed Impressions: Service Date/Time: Thursday, December 01, 2016 16:48 - CONCLUSION: No evidence of obstruction. Feeding tube tip in the distal stomach. Barrett Rodriguez MD Abdomen/Pelvis CT 11/29/16 [id number] Signed Impressions: Service Date/Time: Wednesday, November 30, 2016 01:35 - CONCLUSION: 1. Markedly abnormal appearance of the distal esophagus consistent with the history of esophageal carcinoma. 2. Atherosclerotic calcifications of the aorta and iliac vessels. 3. Cirrhotic appearance to the liver with a mildly nodular contour present. Erik Simon MD CT Angiography 11/29/16 [id number] Signed Impressions: Service Date/Time: Wednesday, November 30, 2016 01:35 - CONCLUSION: 1. No evidence for pulmonary embolism or pneumonia. 2. Abnormal appearance of the esophagus with and soft tissue consistent with the history of carcinoma. Erik Simon MD Objective Remarks GENERAL: in no acute distress but confused CARDIOVASCULAR: irregular rhythm and tachycardic. systolic murmur noted in LSB RESPIRATORY: systolic murmur in LSB GASTROINTESTINAL: Abdomen soft, non-tender, nondistended. Normal, active bowel sounds MUSCULOSKELETAL: lower extremities with bilateral pedal edema. NEURO: awake, alert and less confused today; oriented to person, place and partly to time. Procedures central line/ arterial line placement intubation cardiac catheterization port removal EUS with esophageal stent placement Medications and IVs Current Medications Sodium Chloride (NS 1000 ml Inj) 1,000 ml @ 999 mls/hr BOLUS ONCE IV Last administered on 11/30/16 01:52; Start 11/30/16 at 00:00; Stop 11/30/16 at 01:00 ; Status DC Morphine Sulfate (Morphine Inj) 4 mg ONCE ONCE IV PUSH Last administered on 01:53; Start 11/30/16 at 01:00; Stop 11/30/16 at 01:01; Status DC Potassium Bicarb/ Potassium Chloride (K-Lyte Cl Eff) 75 meq ONCE ONCE PO Last administered on 11/30/16 01:53; Start 11/30/16 at 01:30; Stop 11/30/16 at 01:31; Status DC Iohexol (Omnipaque 350 Inj) 75 ml STK-MED ONCE IV ; Start 11/30/16 at 01:37; Stop 11/30/16 at 01:38; Status DC Calcium Gluconate 1 gm 1 gm ONCE ONCE IV PUSH Last administered on 11/30/16 02:58; Start 11/30/16 at 02:45; Stop 11/30/16 at 02:46; Status DC Sodium Chloride (NS 1000 ml Inj) 1,000 ml @ 100 mls/hr Q10H IV Last administered on 11/30/16 02:58; Start 11/30/16 at 02:33; Stop 11/30/16 at 13:54 ; Status DC Sodium Chloride (NS Flush) 2 ml UNSCH PRN IV FLUSH FLUSH AFTER USING IV ACCESS Last administered on 12/24/16 09:59; Start 11/30/16 at 02:45 Sodium Chloride (NS Flush) 2 ml BID IV FLUSH Last administered on 12/28/16 21: 00; Start 11/30/16 at 09:00 Ondansetron HCl (Zofran Inj) 4 mg Q6H PRN IVP NAUSEA OR VOMITING; Start at 02:45; Stop 11/30/16 at 13:51; Status DC Acetaminophen (Tylenol) 650 mg Q6H PRN PO FEVER/PAIN SCALE 1 TO 2; Start at 02:45; Stop 11/30/16 at 13:54; Status DC Hydromorphone HCl (Dilaudid Pf Inj) 1 mg Q3H PRN IV Pain 6-10 Last administered on 12/04/16 06:52; Start 11/30/16 at 02:45; Stop 12/04/16 at 09:25 ; Status DC Oxycodone HCl (Roxicodone) 5 mg Q4H PRN PO PAIN SCALE 3 TO 5 Last administered on 12/26/16 18:20; Start 11/30/16 at 02:45 Senna/Docusate Sodium (Rere-Colace) 1 tab BID PO Last administered on 07:44; Start 11/30/16 at 09:00 Magnesium Hydroxide (Milk Of Magnesia Liq) 30 ml Q12H PRN PO MILD - MODERATE CONSTIPATION; Start 11/30/16 at 02:45 Sennosides (Senokot) 17.2 mg Q12H PRN PO MODERATE - SEVERE CONSTIPATION; Start 11/30/16 at 02:45 Bisacodyl (Dulcolax Supp) 10 mg DAILY PRN RECTAL SEVERE CONSITIPATION; Start at 02:45 Lactulose (Lactulose Liq) 30 ml DAILY PRN PO SEVERE CONSITIPATION; Start at 02:45 Pantoprazole Sodium (Protonix Inj) 40 mg Q12H IV PUSH Last administered on 12/12 21:10; Start 11/30/16 at 09:00; Stop 12/13/16 at 08:25; Status DC Miscellaneous Information Patient in critical care unit? Ass... Q361D .XX ; Start 11/30/16 at 05:15 Chlorhexidine Gluconate (Chlorhexidine 2% Cloth) 3 pack DAILY@04 TOPICAL Last administered on 12/05/16 04:00; Start 12/01/16 at 04:00; Stop 12/05/16 at 04:01 ; Status DC Chlorhexidine Gluconate (Chlorhexidine 2% Cloth) 3 pack UNSCH PRN TOPICAL HYGIENIC CARE; Start 11/30/16 at 05:15; Stop 12/05/16 at 05:12; Status DC Aspirin 81 mg 81 mg ONCE ONCE PO Last administered on 11/30/16 12:19; Start 11/30/16 at 12:00; Stop 11/30/16 at 12:01; Status DC Heparin Sodium/ Dextrose (Heparin-D5W Inj) 250 ml @ 0 mls/hr TITRATE IV Last administered on 11/30/16 12:21; Start 11/30/16 at 12:15; Stop 11/30/16 at 13:49 ; Status DC Heparin Sodium (Porcine) (Heparin Inj) 5,000 units UNSCH PRN IV aPTT less than 25; Start 11/30/16 at 12:15; Stop 11/30/16 at 13:49; Status DC Heparin Sodium (Porcine) (Heparin Inj) 2,500 units UNSCH PRN IV aPTT 25 to 39; Start 11/30/16 at 12:15; Stop 11/30/16 at 13:49; Status DC Heparin Sodium (Porcine) 4000 units 4,000 units ONCE ONCE IV Last administered on 11/30/16 12:19; Start 11/30/16 at 12:15; Stop 11/30/16 at 12:16 ; Status DC Heparin Sodium/ Sodium Chloride (Heparin-NS/Pf Inj) 500 ml @ As Directed STK- MED ONCE .ROUTE Last administered on 11/30/16 12:36; Start 11/30/16 at 12:36; Stop 11/30/16 at 12:37; Status DC Midazolam HCl (Versed Inj) 2 mg STK-MED ONCE .ROUTE Last administered on 12:36; Start 11/30/16 at 12:36; Stop 11/30/16 at 12:37; Status DC Fentanyl Citrate (fentaNYL INJ) 100 mcg STK-MED ONCE .ROUTE Last administered on 11/30/16 12:36; Start 11/30/16 at 12:36; Stop 11/30/16 at 12:37; Status DC Dextrose (D50w (Syr) Inj) 50 ml STK-MED ONCE .ROUTE Last administered on 12:53; Start 11/30/16 at 12:53; Stop 11/30/16 at 12:54; Status DC Phenylephrine HCl (Neosynephrine Inj) 40 mg STK-MED ONCE .ROUTE Last administered on 11/30/16 13:04; Start 11/30/16 at 13:04; Stop 11/30/16 at 13:05 ; Status DC Clopidogrel Bisulfate 600 mg 600 mg STK-MED ONCE .ROUTE ; Start 11/30/16 at 13: 25; Stop 11/30/16 at 13:26; Status DC Sodium Chloride (NS 1000 ml Inj) 1,000 ml @ 125 mls/hr Q8H IV Last administered on 11/30/16 21:51; Start 11/30/16 at 13:42; Stop 11/30/16 at 17:41 ; Status DC Acetaminophen (Tylenol) 325 mg Q4H PRN PO PAIN SCALE 1 TO 2 Last administered on 12/13/16 17:13; Start 11/30/16 at 13:45 Aspirin (Aspirin Chew) 81 mg DAILY PO Last administered on 12/21/16 08:29; Start 11/30/16 at 13:45; Stop 12/22/16 at 09:42; Status DC Clopidogrel Bisulfate (Plavix) 600 mg ONCE ONCE PO ; Start 11/30/16 at 13:45; Stop 11/30/16 at 13:47; Status DC Clopidogrel Bisulfate (Plavix) 75 mg DAILY PO Last administered on 12/25/16 08 :06; Start 12/01/16 at 09:00; Status Hold Miscellaneous Information 1 ONCE ONCE XX ; Start 11/30/16 at 13:45; Stop at 13:49; Status DC Atropine Sulfate (Atropine Inj) 0.5 mg UNSCH PRN IV VAGAL REPONSE; Start at 13:45 Ondansetron HCl (Zofran Inj) 4 mg Q4H PRN IV NAUSEA Last administered on 22:41; Start 11/30/16 at 13:45 Metoprolol Tartrate (Lopressor) 12.5 mg BID PO Last administered on 12/01/16 09:51; Start 11/30/16 at 21:00; Stop 12/14/16 at 16:12; Status DC Atorvastatin Calcium (Lipitor) 10 mg HS PO Last administered on 12/02/16 21:22 ; Start 11/30/16 at 21:00; Stop 12/12/16 at 09:02; Status DC Miscellaneous Information HOLD METFORMIN FOR... Q24H .XX ; Start 11/30/16 at 15: 00; Stop 12/02/16 at 14:59; Status DC Potassium Chloride (KCl 20 Meq Premix Inj) 100 ml @ 50 mls/hr Q2H IV Last administered on 11/30/16 19:24; Start 11/30/16 at 18:00; Stop 11/30/16 at 21:59 ; Status DC Sodium Chloride (NS Flush) 5 ml Q21D IV FLUSH Last administered on 12/21/16 17: 19; Start 11/30/16 at 18:00 Heparin Sodium (Porcine) (Heparin Central Flush) 500 units Q21D IV FLUSH Last administered on 11/30/16 18:04; Start 11/30/16 at 18:00 Sodium Chloride (NS Flush) 5 ml UNSCH PRN IV FLUSH SEE LABEL COMMENTS; Start at 18:00 Heparin Sodium (Porcine) (Heparin Central Flush) 250 units UNSCH PRN IV FLUSH FLUSH AFTER USING IV ACCESS; Start 11/30/16 at 18:00 Lorazepam (Ativan Inj) 0.5 mg ONCE ONCE IV PUSH Last administered on 06:37; Start 12/01/16 at 06:30; Stop 12/01/16 at 06:31; Status DC Lorazepam 0.5 mg 0.5 mg ONCE ONCE IV Last administered on 12/01/16 07:43; Start 12/01/16 at 07:45; Stop 12/01/16 at 07:46; Status DC Potassium Chloride 30 meq/ Sodium Chloride 115 ml @ 38.333 mls/ hr Q3H IV- CENTRAL Last administered on 12/01/16 12:43; Start 12/01/16 at 08:30; Stop at 14:29; Status DC Vancomycin HCl 2100 mg/Sodium Chloride 521 ml @ 250 mls/hr ONCE ONCE IV Last administered on 12/01/16 12:43; Start 12/01/16 at 12:00; Stop 12/01/16 at 14:06 ; Status DC Pharmacy Profile Note 0 ml @ 0 mls/hr UNSCH OTHER ; Start 12/01/16 at 10:30; Status UNV Pharmacy Profile Note 0 ml @ 0 mls/hr UNSCH OTHER ; Start 12/01/16 at 11:00; Stop 12/01/16 at 13:07; Status DC Vancomycin HCl 1250 mg/Sodium Chloride 262.5 ml @ 262.5 mls/ hr Q24H IV ; Start 12/02/16 at 09:00; Stop 12/02/16 at 09:00; Status DC Ceftriaxone Sodium 2000 mg/ Sodium Chloride 100 ml @ 200 mls/hr Q24H IV ; Start 12/01/16 at 14:00; Stop 12/01/16 at 16:10; Status DC Thiamine HCl/ Sodium Chloride (Thiamine Inj/NS Inj) 101 ml @ 101 mls/hr DAILY IV Last administered on 12/01/16 14:09; Start 12/01/16 at 13:00; Stop at 08:28; Status DC Flumazenil (Romazicon Inj) 0.2 mg Q1M PRN IV PUSH SEE LABEL COMMENTS; Start at 13:00 Lorazepam (Ativan) 1 mg Q4H PRN PO CIWA 8 - 10; Start 12/01/16 at 13:00; Stop 12/04/16 at 09:29; Status DC Lorazepam (Ativan Inj) 1 mg Q4H PRN IV PUSH CIWA 8 - 10 Last administered on 21:52; Start 12/01/16 at 13:00; Stop 12/04/16 at 09:29; Status DC Lorazepam (Ativan) 2 mg Q2H PRN PO CIWA 11-14; Start 12/01/16 at 13:00; Stop at 09:29; Status DC Lorazepam (Ativan Inj) 2 mg Q2H PRN IV PUSH CIWA 11-14 Last administered on 04:37; Start 12/01/16 at 13:00; Stop 12/04/16 at 09:29; Status DC Lorazepam (Ativan Inj) 2 mg Q1H PRN IV PUSH CIWA 15-20; Start 12/01/16 at 13:00 ; Stop 12/04/16 at 09:29; Status DC Lorazepam 2 mg 2 mg Q15M PRN IV PUSH CIWA > 20; Start 12/01/16 at 13:00; Stop 12/04/16 at 09:29; Status DC Sodium Chloride 1,000 ml @ 999 mls/hr BOLUS ONCE IV Last administered on 12/01 14:09; Start 12/01/16 at 13:00; Stop 12/01/16 at 14:06; Status DC Sodium Chloride (NS 1000 ml Inj) 1,000 ml @ 999 mls/hr BOLUS ONCE IV Last administered on 12/01/16 14:09; Start 12/01/16 at 13:00; Stop 12/01/16 at 14:06 ; Status DC Morphine Sulfate 8 mg 8 mg STK-MED ONCE .ROUTE Last administered on 12/01/16 14:06; Start 12/01/16 at 14:04; Stop 12/01/16 at 14:05; Status DC Dexmedetomidine HCl/Sodium Chloride (Precedex Inj/NS Inj) 52 ml @ 0 mls/hr TITRATE IV ; Start 12/01/16 at 14:30; Stop 12/03/16 at 07:50; Status DC Albuterol/ Ipratropium (Duoneb Neb) 1 ampule Q6HR NEB NEB Last administered on 12/05/16 15:58; Start 12/01/16 at 16:00; Stop 12/05/16 at 16:00; Status DC Albuterol/ Ipratropium 1 ampule 1 ampule Q2HR NEB PRN NEB SHORTNESS OF BREATH Last administered on 12/28/16 13:14; Start 12/01/16 at 14:30 Cefazolin Sodium/ Dextrose 50 ml @ 100 mls/hr Q8H IV Last administered on 12/03 08:27; Start 12/01/16 at 18:00; Stop 12/06/16 at 09:11; Status DC Pharmacy Profile Note 0 ml @ 0 mls/hr UNSCH OTHER ; Start 12/01/16 at 16:15; Stop 12/03/16 at 10:51; Status DC Sodium Chloride (NS 1000 ml Inj) 1,000 ml @ 50 mls/hr Q20H IV Last administered on 12/04/16 05:40; Start 12/01/16 at 16:30; Stop 12/04/16 at 09:25 ; Status DC Acetaminophen 650 mg 650 mg Q6H PRN PO FEVER Last administered on 12/02/16 01 :07; Start 12/01/16 at 17:30 Vancomycin HCl/ Sodium Chloride (Vancomycin Inj/ NS 500 ml Inj) 521 ml @ 250 mls/hr Q18H IV Last administered on 12/02/16 05:36; Start 12/02/16 at 06:00; Stop 12/02/16 at 11:38; Status DC Miscellaneous Information SPECIFIC LAB TO BE DRAWN:[facility]ANCO TROUGH DATE TO... ONCE ONCE .XX ; Start 12/03/16 at 17:45; Stop 12/03/16 at 17:46; Status Cancel Sodium Chloride (NS 1000 ml Inj) 1,000 ml @ 999 mls/hr BOLUS ONCE IV Last administered on 12/02/16 06:30; Start 12/02/16 at 06:30; Stop 12/02/16 at 07:30 ; Status DC Methylprednisolone Sodium Succinate (SoluMEDROL INJ) 125 mg ONCE STAT IV PUSH Last administered on 12/02/16 07:14; Start 12/02/16 at 06:52; Stop 12/02/16 at 06:59; Status DC Methylprednisolone Sodium Succinate (SoluMEDROL INJ) 60 mg Q8HR IV PUSH Last administered on 12/05/16 05:17; Start 12/02/16 at 14:00; Stop 12/05/16 at 09:00 ; Status DC Etomidate (Amidate Inj) 20 mg STK-MED ONCE .ROUTE Last administered on 08:07; Start 12/02/16 at 07:29; Stop 12/02/16 at 07:30; Status DC Midazolam HCl (Versed Inj) 5 mg STK-MED ONCE .ROUTE Last administered on 08:07; Start 12/02/16 at 07:29; Stop 12/02/16 at 07:30; Status DC Rocuronium Tualatin (Zemuron Inj) 50 mg STK-MED ONCE .ROUTE Last administered on 12/02/16 08:08; Start 12/02/16 at 07:30; Stop 12/02/16 at 07:31; Status DC Enoxaparin Sodium (Lovenox Inj) 40 mg Q24H SQ Last administered on 12/20/16 09: 04; Start 12/02/16 at 09:00; Stop 12/20/16 at 09:13; Status DC Chlorhexidine Gluconate 15 ml 15 ml BID@08,20 MT Last administered on 12/24/16 20:00; Start 12/02/16 at 08:00; Stop 12/25/16 at 21:39; Status DC Propofol 100 ml @ 0 mls/hr TITRATE IV Last administered on 12/02/16 19:59; Start 12/02/16 at 08:00; Stop 12/03/16 at 07:50; Status DC Fentanyl Citrate (fentaNYL DRIP) 250 ml @ 0 mls/hr TITRATE IV Last administered on 12/03/16 04:05; Start 12/02/16 at 08:00; Stop 12/04/16 at 09:25 ; Status DC Metoprolol Tartrate 2.5 mg 2.5 mg Q6H PRN IV PUSH HR >110 Last administered on 12/20/16 18:38; Start 12/02/16 at 08:15; Stop 12/22/16 at 09:53; Status DC Multivitamins/ Thiamine HCl/ Folic Acid/Sodium Chloride (Mvi-12 Inj/ Thiamine Inj/ Folvite Inj/1/2 NS 500 ml Inj) 511.2 ml @ 125 mls/hr DAILY IV Last administered on 12/04/16 09:21; Start 12/02/16 at 09:00; Stop 12/05/16 at 09:00 ; Status DC Sodium Bicarbonate (Sodium Bicarbonate 8.4% Inj) 50 meq STK-MED ONCE .ROUTE ; Start 12/02/16 at 09:06; Stop 12/02/16 at 09:07; Status DC Sodium Bicarbonate 50 meq 50 meq NOW ONCE IV PUSH Last administered on 11:16; Start 12/02/16 at 09:45; Stop 12/02/16 at 09:46; Status DC Vasopressin/ Dextrose (Pitressin Inj/ D5W 100 ml Inj) 100 ml @ 4.5 mls/hr [id number] IV Last administered on 12/03/16 04:17; Start 12/02/16 at 11:04; Stop 12/06/16 at 07:32; Status DC Sodium Bicarbonate (Sodium Bicarbonate 8.4% Inj) 50 meq ONCE ONCE IV PUSH Last administered on 12/02/16 11:38; Start 12/02/16 at 11:15; Stop 12/02/16 at 11:22; Status DC Rocuronium Tualatin 50 mg 50 mg BOLUS ONCE IV Last administered on 12/02/16 11 :39; Start 12/02/16 at 11:15; Stop 12/02/16 at 11:22; Status DC Sodium Bicarbonate 50 ml @ As Directed STK-MED ONCE .ROUTE Last administered on 12/02/16 15:53; Start 12/02/16 at 11:06; Stop 12/02/16 at 11:07; Status DC Vancomycin HCl 2000 mg/Sodium Chloride 520 ml @ 250 mls/hr Q18H IV Last administered on 12/02/16 23:46; Start 12/03/16 at 00:00; Stop 12/03/16 at 10:51 ; Status DC Norepinephrine Bitartrate (Levophed-Dextrose Drip) 250 ml @ 0 mls/hr TITRATE IV Last administered on 12/03/16 04:05; Start 12/02/16 at 15:15; Stop 12/08/16 at 10:23; Status DC Terbutaline Sulfate 1 mg 1 mg UNSCH PRN SQ For Extravasation; Start 12/02/16 at 15:15 Sodium Bicarbonate/ Sterile Water (Sodium Bicarbonate 8.4% Inj/Sterile Water For Inj) 1,000 ml @ 150 mls/hr Q6H40M IV Last administered on 12/03/16 04:16 ; Start 12/02/16 at 16:00; Stop 12/03/16 at 07:49; Status DC Iohexol (OMNIPAQUE 350 INJ ([employer])) 100 ml STK-MED ONCE OTHER ; Start at 12:30; Stop 12/02/16 at 15:48; Status DC Lidocaine HCl (Xylocaine 1% Inj (50 ml)) 50 ml STK-MED ONCE .ROUTE ; Start 12/02 at 19:06; Stop 12/02/16 at 19:07; Status DC Dextrose (D50w (Vial) Inj) 50 ml UNSCH PRN IV HYPOGLYCEMIA-SEE COMMENTS; Start 12/02/16 at 22:30 Glucagon (Glucagon Inj) 1 mg UNSCH PRN OTHER HYPOGLYCEMIA-SEE COMMENTS; Start 12/02/16 at 22:30 Insulin Aspart 1 1 Q4HR SQ Last administered on 12/14/16 04:00; Start at 00:00; Stop 12/14/16 at 08:16; Status DC Midazolam HCl (Versed 100 Mg/ ml Inj) 100 ml @ 0 mls/hr TITRATE IV ; Start 12/03 at 08:00; Stop 12/04/16 at 09:25; Status DC Polyethylene Glycol (Miralax) 17 gm DAILY PO Last administered on 12/27/16 08: 04; Start 12/04/16 at 09:00 Bumetanide (Bumex Inj) 1 mg STK-MED ONCE .ROUTE ; Start 12/03/16 at 11:46; Stop 12/03/16 at 11:47; Status DC Bumetanide 1 mg 1 mg NOW ONCE IV PUSH ; Start 12/03/16 at 15:00; Stop 12/03/16 at 15:01; Status DC Cefepime HCl/ Sodium Chloride (Maxipime Inj/NS Inj) 100 ml @ 200 mls/hr Q8H IV Last administered on 12/06/16 08:16; Start 12/03/16 at 17:00; Stop 12/06/16 at 09:08; Status DC Bumetanide 1 mg 1 mg ONCE ONCE IV PUSH Last administered on 12/04/16 10:00; Start 12/04/16 at 09:30; Stop 12/04/16 at 09:32; Status DC Potassium Chloride (KCl 40 Meq Premix Inj) 100 ml @ 25 mls/hr Q4H IV ; Start at 10:00; Stop 12/04/16 at 17:59; Status DC Morphine Sulfate 2 mg 2 mg Q3H PRN IV PUSH pain 5-10 Last administered on t 05:16; Start 12/04/16 at 09:30; Stop 12/05/16 at 09:01; Status DC Potassium Chloride 100 ml @ 50 mls/hr Q2H PRN IV For Potassium 2.8 - 3.2 mEq/ L Last administered on 12/04/16t 21:17; Start 12/04/16 at 09:30; Stop 12/16/16 at 07:44; Status DC Potassium Chloride (KCl 20 Meq Premix Inj) 100 ml @ 50 mls/hr Q2H PRN IV For Potassium 2.8 - 3.2 mEq/L; Start 12/04/16 at 09:30; Stop 12/16/16 at 07:44; Status DC Potassium Bicarb/ Potassium Chloride 50 meq 50 meq UNSCH PRN PO For Potassium 3.3 - 3.5 mEq/L; Start 12/04/16 at 09:30; Stop 12/16/16 at 07:44; Status DC Potassium Chloride 100 ml @ 25 mls/hr UNSCH PRN IV For Potassium 3.3 - 3.5 mEq /L; Start 12/04/16 at 09:30; Stop 12/16/16 at 07:44; Status DC Potassium Chloride 100 ml @ 50 mls/hr Q2H PRN IV For Potassium 3.3 - 3.5 mEq/L ; Start 12/04/16 at 09:30; Stop 12/16/16 at 07:44; Status DC Magnesium Sulfate/ Sodium Chloride (Magnesium Sulfate Inj/NS Inj) 100 ml @ 50 mls/hr UNSCH PRN IV For Magnesium 0.9 - 1.1 mg/dL; Start 12/04/16 at 09:30; Stop 12/16/16 at 07:44; Status DC Magnesium Oxide 800 mg 800 mg UNSCH PRN PO For Magnesium 1.2 - 1.6 mg/dL; Start 12/04/16 at 09:30; Stop 12/16/16 at 07:44; Status DC Magnesium Sulfate/ Sodium Chloride (Magnesium Sulfate Inj/NS Inj) 100 ml @ 50 mls/hr UNSCH PRN IV For Magnesium 1.2 - 1.6 mg/dL; Start 12/04/16 at 09:30; Stop 12/16/16 at 07:44; Status DC Potassium Phosphate 2000 mg 2,000 mg Q4H PRN PO For Phosphorus < 2.5 mg/dL; Start 12/04/16 at 09:30; Stop 12/16/16 at 07:45; Status DC Sodium Phosphate/ Sodium Chloride (Sodium Phosphate Inj/NS 250 ml Inj) 250 ml @ 42 mls/hr UNSCH PRN IV For Phosphorus < 2.5 mg/dL Last administered on 06:41; Start 12/04/16 at 09:30; Stop 12/16/16 at 07:45; Status DC Potassium Phosphate 2000 mg 2,000 mg UNSCH PRN PO/TUBE SEE LABEL COMMENTS; Start 12/04/16 at 09:30; Stop 12/16/16 at 07:45; Status DC Potassium Phosphate/Sodium Chloride (Potassium Phosphate Inj/NS 250 ml Inj) 260 ml @ 42 mls/hr UNSCH PRN IV SEE LABEL COMMENTS; Start 12/04/16 at 09:30; Stop 12/16/16 at 07:45; Status DC Potassium Bicarb/ Potassium Chloride (K-Lyte Cl Eff) 25 meq ONCE ONCE PO ; Start 12/04/16 at 09:30; Stop 12/04/16 at 09:42; Status DC Bumetanide 1 mg 1 mg ONCE ONCE IV PUSH Last administered on 12/04/16 12:32; Start 12/04/16 at 12:00; Stop 12/04/16 at 12:01; Status DC Calcium Gluconate/ Sodium Chloride (Calcium Gluconate Inj/NS Inj) 110 ml @ 110 mls/hr ONCE ONCE IV Last administered on 12/05/16 10:29; Start 12/05/16 at 09 :30; Stop 12/05/16 at 10:29; Status DC Methylprednisolone Sodium Succinate (SoluMEDROL INJ) 40 mg Q12HR IV PUSH Last administered on 12/10/16 20:09; Start 12/05/16 at 09:00; Stop 12/11/16 at 09:04 ; Status DC Thiamine HCl (Vitamin B1) 100 mg DAILY PO Last administered on 12/29/16 07:56 ; Start 12/05/16 at 09:00 Multivitamins (Theragran) 1 tab DAILY PO Last administered on 12/29/16 07:44; Start 12/05/16 at 09:00 Folic Acid (Folate) 1 mg DAILY PO Last administered on 12/25/16 08:07; Start 12/05/16 at 09:00; Status Hold Morphine Sulfate (Morphine Inj) 2 mg Q2H PRN IV PUSH pain 5-10 Last administered on 12/17/16 01:20; Start 12/05/16 at 10:30; Stop 12/17/16 at 10:52; Status DC Albuterol/ Ipratropium 1 ampule 1 ampule Q4HR NEB NEB Last administered on 03:40; Start 12/06/16 at 08:00; Stop 12/10/16 at 08:00; Status DC Sodium Chloride (1/2 NS 1000 ml Inj) 1,000 ml @ 125 mls/hr Q8H IV Last administered on 12/07/16 21:33; Start 12/06/16 at 07:30; Stop 12/08/16 at 10:23 ; Status DC Rifampin 300 mg 300 mg Q12HR PO Last administered on 12/29/16 08:57; Start at 09:15; Stop 01/15/17 at 23:00 Cefazolin Sodium/ Dextrose (Ancef 2 Gm Premix) 50 ml @ 100 mls/hr Q8H IV Last administered on 12/29/16 08:15; Start 12/06/16 at 10:00; Stop 01/15/17 at 23:00 Levofloxacin (Levaquin) 750 mg Q24H PO Last administered on 12/12/16 08:58; Start 12/06/16 at 10:00; Stop 12/13/16 at 09:59; Status DC Insulin Detemir (Levemir Inj) 5 units Q12HR SQ Last administered on 12/13/16 21:29; Start 12/07/16 at 09:00; Stop 12/14/16 at 08:17; Status DC Methylnaltrexone Tualatin (Relistor Inj) 12 mg ONCE ONCE SQ Last administered on 12/07/16 16:58; Start 12/07/16 at 15:00; Stop 12/07/16 at 15:11; Status DC Metoprolol Tartrate (Lopressor Inj) 2.5 mg ONCE ONCE IV PUSH Last administered on 12/08/16 15:15; Start 12/08/16 at 15:00; Stop 12/08/16 at 15:01 ; Status DC Diltiazem HCl (Cardizem Inj) 10 mg ONCE ONCE IV ; Start 12/08/16 at 15:15; Stop 12/08/16 at 16:09; Status DC Metoprolol Tartrate (Lopressor) 50 mg Q12HR PO Last administered on 12/13/16 20:52; Start 12/08/16 at 21:00; Stop 12/14/16 at 09:12; Status DC Diltiazem HCl (Cardizem) 60 mg Q6H PO Last administered on 12/18/16 17:25; Start 12/09/16 at 05:00; Stop 12/18/16 at 18:39; Status DC Lorazepam (Ativan Inj) 1 mg Q4H PRN IV PUSH ANXIETY AND/OR AGITATION Last administered on 12/28/16 22:02; Start 12/09/16 at 15:15 Haloperidol Lactate (Haldol Inj) 2 mg Q8H PRN IM AGITATION AND/OR HALLUCINATION ; Start 12/10/16 at 17:00 Methylprednisolone Sodium Succinate (SoluMEDROL INJ) 20 mg Q12HR IV PUSH Last administered on 12/13/16 20:50; Start 12/11/16 at 21:00; Stop 12/13/16 at 22:00 ; Status DC Atorvastatin Calcium (Lipitor) 40 mg HS PO Last administered on 12/24/16 21:00 ; Start 12/12/16 at 21:00; Status Hold Sodium Chloride (NS Flush) See Protocol DAILY IV FLUSH Last administered on 08:04; Start 12/13/16 at 09:00 Sodium Chloride (NS Flush) See Protocol UNSCH PRN IV FLUSH SEE PROTOCOL TABLE; Start 12/12/16 at 17:00 Heparin Sodium (Porcine) (Heparin Central Flush) See Protocol DAILY IV FLUSH Last administered on 12/27/16 08:05; Start 12/13/16 at 09:00 Heparin Sodium (Porcine) (Heparin Central Flush) See Protocol UNSCH PRN IV FLUSH SEE PROTOCOL TABLE; Start 12/12/16 at 17:00 Sodium Chloride UNSCH PRN IV FLUSH SEE PROTOCOL TABLE Last administered on 12/19 01:59; Start 12/12/16 at 17:00 Sodium Chloride (NS 250 ml Inj) 250 ml @ 15 mls/hr ONCE ONCE IV Last administered on 12/13/16 09:34; Start 12/13/16 at 08:15; Stop 12/14/16 at 00:54 ; Status DC Acetaminophen (Tylenol) 650 mg Q4H PRN PO SEE LABEL COMMENTS; Start 12/13/16 at 08:15; Stop 12/13/16 at 12:16; Status DC Diphenhydramine HCl (Benadryl) 25 mg Q4H PRN PO SEE LABEL COMMENTS; Start 12/13 at 08:15; Stop 12/13/16 at 12:16; Status Cancel Prednisone (Deltasone) 40 mg DAILY PO Last administered on 12/16/16 08:53; Start 12/14/16 at 09:00; Stop 12/16/16 at 09:28; Status DC Pantoprazole Sodium (Protonix) 40 mg Q12HR PO Last administered on 12/22/16 09: 01; Start 12/13/16 at 09:00; Stop 12/22/16 at 09:49; Status DC Diphenhydramine HCl (Benadryl) 25 mg Q4H PRN PO SEE LABEL COMMENTS; Start 12/13 at 17:15; Stop 12/13/16 at 21:16; Status DC Insulin Aspart (NovoLOG SUPPLEMENTAL SCALE) 1 ACHS SLIDING SCALE SQ Last administered on 12/24/16 21:13; Start 12/14/16 at 11:00; Stop 12/25/16 at 21:39 ; Status DC Insulin Detemir (Levemir Inj) 6 units Q12HR SQ Last administered on 12/29/16 07:57; Start 12/14/16 at 09:00 Metoprolol Tartrate (Lopressor) 75 mg Q12HR PO Last administered on 12/14/16 12:00; Start 12/14/16 at 12:00; Stop 12/14/16 at 16:10; Status DC Etomidate (Amidate Inj) 25 mg ONCE ONCE IVP ; Start 12/14/16 at 12:15; Stop at 18:48; Status DC Fentanyl Citrate (fentaNYL INJ) 200 mcg ONCE ONCE IV ; Start 12/14/16 at 12:15 ; Stop 12/14/16 at 18:48; Status DC Succinylcholine Chloride (Quelicin Inj) 150 mg ONCE ONCE IV ; Start 12/14/16 at 12:15; Stop 12/14/16 at 18:48; Status DC Metoprolol Tartrate (Lopressor) 100 mg Q12HR PO Last administered on 12/22/16 09:01; Start 12/14/16 at 21:00; Stop 12/22/16 at 12:48; Status DC Metoprolol Tartrate 25 mg 25 mg ONCE ONCE PO Last administered on 12/14/16 16 :55; Start 12/14/16 at 16:15; Stop 12/14/16 at 16:16; Status DC Iron Sucrose/ Sodium Chloride (Venofer Inj/NS Inj) 105 ml @ 105 mls/hr DAILY IV Last administered on 12/18/16 08:01; Start 12/16/16 at 09:00; Stop 12/18/16 at 09:59; Status DC Nitroglycerin (Nitrostat Sl) 0.4 mg Q5M PRN SL CHEST PAIN; Start 12/16/16 at 00: 15 Prednisone (Deltasone) 20 mg DAILY PO Last administered on 12/20/16 09:04; Start 12/17/16 at 09:00; Stop 12/20/16 at 10:01; Status DC Gadodiamide (Omniscan Pf Inj) 21 ml STK-MED ONCE IV Last administered on 15:41; Start 12/17/16 at 15:41; Stop 12/17/16 at 15:42; Status DC Oxycodone HCl (Roxicodone) 10 mg Q4H PRN PO PAIN 6-10 Last administered on 02:37; Start 12/17/16 at 19:00; Stop 12/21/16 at 08:51; Status DC Diltiazem HCl (Cardizem Inj) 20 mg ONCE PRN IV if HR 110-130 Last administered on 12/17/16 21:49; Start 12/17/16 at 21:30; Stop 12/17/16 at 22:30; Status DC Diltiazem HCl 20 mg 20 mg ONCE ONCE IVP ; Start 12/17/16 at 21:30; Stop 12/17/16 at 21:40; Status DC Diltiazem HCl/ Sodium Chloride (Cardizem Inj/NS Inj) 125 ml @ 0 mls/hr TITRATE IV Last administered on 12/17/16 22:12; Start 12/17/16 at 21:30; Stop 12/19/16 at 18:12; Status DC Lorazepam (Ativan) 0.5 mg DAILY PRN PO ANXIETY Last administered on 12/19/16 08 :29; Start 12/18/16 at 15:45; Status Hold Diltiazem HCl (Cardizem) 90 mg Q6H PO Last administered on 12/25/16 12:14; Start 12/18/16 at 23:00; Status Hold Diltiazem HCl (Cardizem) 30 mg NOW ONCE PO Last administered on 12/18/16 19:33 ; Start 12/18/16 at 19:30; Stop 12/18/16 at 19:31; Status DC Diltiazem HCl (Cardizem Inj) 10 mg NOW ONCE IV Last administered on 12/18/16 19:32; Start 12/18/16 at 19:30; Stop 12/18/16 at 19:31; Status DC Alteplase, Recombinant (Cathflo Activase Inj) 2 mg UNSCH X1 IV FLUSH ; Start at 19:45; Stop 12/18/16 at 23:00; Status DC Metoprolol Tartrate (Lopressor Inj) 5 mg ONCE ONCE IV PUSH Last administered on 12/19/16 05:40; Start 12/19/16 at 05:30; Stop 12/19/16 at 05:31; Status DC Digoxin (Lanoxin Inj) 0.5 mg NOW STAT IVS Last administered on 12/19/16 17:19 ; Start 12/19/16 at 16:51; Stop 12/19/16 at 17:04; Status DC Digoxin (Lanoxin Inj) 0.25 mg Q6H IVS Last administered on 12/20/16 03:54; Start 12/19/16 at 23:00; Stop 12/20/16 at 05:01; Status DC Digoxin (Lanoxin) 0.125 mg DAILY PO Last administered on 12/21/16 08:29; Start 12/20/16 at 09:00; Stop 12/21/16 at 11:59; Status DC Furosemide (Lasix Inj) 20 mg ONCE ONCE IV PUSH Last administered on 12/19/16 18:12; Start 12/19/16 at 17:45; Stop 12/19/16 at 17:46; Status DC Potassium Bicarb/ Potassium Chloride 25 meq 25 meq ONCE ONCE PO Last administered on 12/19/16 18:12; Start 12/19/16 at 17:45; Stop 12/19/16 at 17:46; Status DC Diltiazem HCl/ Sodium Chloride (Cardizem Inj/NS Inj) 125 ml @ 0 mls/hr TITRATE IV Last administered on 12/29/16 08:15; Start 12/19/16 at 18:15 Diltiazem HCl (Cardizem Inj) 18 mg NOW ONCE IV Last administered on 12/19/16 19:29; Start 12/19/16 at 18:15; Stop 12/19/16 at 18:16; Status DC Apixaban (Eliquis) 5 mg BID PO ; Start 12/20/16 at 10:00; Stop 12/20/16 at 10:00; Status DC Apixaban (Eliquis) 5 mg BID PO Last administered on 12/21/16 21:02; Start at 10:00; Stop 12/22/16 at 09:49; Status DC Diltiazem HCl (Cardizem Inj) 10 mg ONCE ONCE IV ; Start 12/20/16 at 09:30; Stop 12/20/16 at 09:31; Status DC Prednisone (Deltasone) 10 mg DAILY PO Last administered on 12/28/16 08:14; Start 12/21/16 at 09:00; Stop 12/28/16 at 13:58; Status DC Atropine Sulfate (Atropine Inj) 1 mg STK-MED ONCE .ROUTE ; Start 12/20/16 at 12: 45; Stop 12/20/16 at 12:46; Status DC Epinephrine HCl (EPINEPHrine (1:10,000) INJ) 1 mg STK-MED ONCE .ROUTE ; Start at 12:45; Stop 12/20/16 at 12:46; Status DC Acetaminophen (Tylenol) 650 mg ONCE ONCE PO Last administered on 12/20/16 18: 39; Start 12/20/16 at 18:45; Stop 12/20/16 at 18:46; Status DC Diphenhydramine HCl (Benadryl) 25 mg ONCE ONCE PO Last administered on 18:39; Start 12/20/16 at 18:45; Stop 12/20/16 at 18:46; Status DC Calcium Carbonate (Tums Chew) 500 mg ONCE ONCE CHEW Last administered on 00:45; Start 12/21/16 at 00:45; Stop 12/21/16 at 00:46; Status DC Calcium Carbonate (Tums Chew) 500 mg ONCE ONCE CHEW Last administered on 04:52; Start 12/21/16 at 05:00; Stop 12/21/16 at 05:01; Status DC Oxycodone HCl (Roxicodone) 15 mg Q4H PRN PO PAIN 6-10 Last administered on 12/28 23:36; Start 12/21/16 at 11:00 Digoxin (Lanoxin Inj) 0.5 mg NOW STAT IVS Last administered on 12/21/16 12:41 ; Start 12/21/16 at 11:49; Stop 12/21/16 at 11:50; Status DC Digoxin (Lanoxin Inj) 0.25 mg Q6H IVS Last administered on 12/21/16 17:19; Start 12/21/16 at 18:00; Stop 12/22/16 at 00:01; Status DC Digoxin (Lanoxin) 0.25 mg DAILY PO Last administered on 12/25/16 08:06; Start 12/22/16 at 09:00; Status Hold Calcium Carbonate (Tums Chew) 500 mg ONCE ONCE CHEW ; Start 12/22/16 at 01:00; Stop 12/22/16 at 01:01; Status DC Heparin Sodium (Porcine) (Heparin Inj) 5,000 units UNSCH PRN IV APTT LESS THAN 25; Start 12/22/16 at 15:15; Stop 12/23/16 at 00:05; Status DC Heparin Sodium (Porcine) 2500 units 2,500 units UNSCH PRN IV APTT 25 TO 39; Start 12/22/16 at 15:15; Stop 12/23/16 at 00:05; Status DC Heparin Sodium/ Dextrose (Heparin-D5W Inj) 250 ml @ 0 mls/hr TITRATE IV ; Start 12/22/16 at 09:15; Stop 12/22/16 at 09:42; Status DC Sucralfate (Carafate Liq) 1 gm ACHS PO Last administered on 12/29/16 06:19; Start 12/22/16 at 11:00 Metoprolol Tartrate (Lopressor Inj) 5 mg Q1HR PRN IV PUSH RAPID HEART RATE Last administered on 12/24/16 22:59; Start 12/22/16 at 09:45 Pantoprazole Sodium (Protonix Inj) 40 mg Q12H IV PUSH Last administered on 12/29 08:15; Start 12/22/16 at 10:00 Aspirin 81 mg 81 mg DAILY PO Last administered on 12/25/16 08:06; Start at 09:00; Status Hold Heparin Sodium/ Dextrose (Heparin-D5W Inj) 250 ml @ 0 mls/hr TITRATE IV Last administered on 12/22/16 12:43; Start 12/22/16 at 10:00; Stop 12/23/16 at 00:05; Status DC Metoprolol Tartrate (Lopressor) 25 mg Q6HR PO Last administered on 12/29/16 06 :19; Start 12/22/16 at 13:00 Furosemide (Lasix Inj) 20 mg ONCE ONCE IV PUSH Last administered on 12/22/16 12:44; Start 12/22/16 at 13:00; Stop 12/22/16 at 13:01; Status DC Furosemide (Lasix Inj) 20 mg ONCE IV PUSH Last administered on 12/23/16 02:31; Start 12/22/16 at 23:00; Stop 12/23/16 at 06:00; Status DC Morphine Sulfate (Morphine Inj) 2 mg Q4H PRN IV PUSH pain >5 Last administered on 12/29/16 08:16; Start 12/23/16 at 00:00 Diphenhydramine HCl (Benadryl) 25 mg ONCE ONCE PO Last administered on 04:04; Start 12/23/16 at 23:45; Stop 12/23/16 at 23:46; Status DC Acetaminophen (Tylenol) 650 mg ONCE ONCE PO Last administered on 12/24/16t 04: 04; Start 12/23/16 at 23:45; Stop 12/23/16 at 23:46; Status DC Furosemide 20 mg 20 mg DAILY IV PUSH Last administered on 12/29/16t 07:47; Start 12/24/16 at 09:15 Lactated Ringer's 1,000 ml @ 30 mls/hr Q24H PRN IV SEE LABEL COMMENTS; Start at 22:00; Stop 12/26/16 at 14:00; Status DC Sodium Chloride (NS 500 ml Inj) 500 ml @ 30 mls/hr [id number] PRN IV SEE LABEL COMMENTS; Start 12/24/16 at 22:00; Stop 12/27/16 at 21:59; Status DC Metoprolol Tartrate (Lopressor) 25 mg RECOOPERER PRN PO SEE LABEL COMMENTS; Start 12/24/16 at 22:00; Stop 12/27/16 at 21:59; Status DC Povidone Iodine (Betadine 5% Antisepsis Kit) 1 applic RECOOPERER PRN EACH NARE SEE LABEL COMMENTS; Start 12/24/16 at 22:00; Stop 12/27/16 at 21:59; Status DC Chlorhexidine Gluconate (Chlorhexidine 2% Cloth) 3 pack RECOOPERER PRN TOPICAL SEE LABEL COMMENTS; Start 12/24/16 at 22:00; Stop 12/27/16 at 21:59; Status DC Insulin Human Regular See Protocol Table ... RECOOPERER PRN SQ SEE PROTOCOL TABLE ; Start 12/24/16 at 22:00; Stop 12/25/16 at 21:37; Status DC Propofol (Diprivan 1000 Mg/100ml Inj) 100 ml @ As Directed STK-MED ONCE .ROUTE ; Start 12/25/16 at 19:27; Stop 12/25/16 at 19:28; Status DC Midazolam HCl (Versed Inj) 2 mg STK-MED ONCE .ROUTE ; Start 12/25/16 at 20:09; Stop 12/25/16 at 20:10; Status DC Morphine Sulfate 4 mg 4 mg STK-MED ONCE .ROUTE ; Start 12/25/16 at 20:10; Stop 12/25/16 at 20:11; Status DC Propofol (Diprivan 1000 Mg/100ml Inj) 100 ml @ 0 mls/hr TITRATE IV ; Start 12/25 at 20:15; Stop 12/25/16 at 21:28; Status DC Propofol (Diprivan 200 Mg/20 ml Inj) 200 mg STK-MED ONCE IV ; Start 12/25/16 at 18:30; Stop 12/25/16 at 20:15; Status DC Phenylephrine HCl (Neosynephrine/ NS 1000 Mcg/10ml Syr) 500 mcg STK-MED ONCE IV ; Start 12/25/16 at 18:32; Stop 12/25/16 at 20:17; Status DC Lactated Ringer's (Lr 1000 ml Inj) 1,000 ml STK-MED ONCE IV ; Start 12/25/16 at 18:32; Stop 12/25/16 at 20:17; Status DC Sodium Chloride (NS 500 ml Inj) 500 ml STK-MED ONCE IV ; Start 12/25/16 at 18:32 ; Stop 12/25/16 at 20:17; Status DC Miscellaneous Information ALL NURSING DEPARTME... UNSCH PRN .XX SEE LABEL COMMENTS; Start 12/25/16 at 20:30; Stop 12/26/16 at 20:29; Status DC Phenylephrine HCl 40 mg 40 mg STK-MED ONCE .ROUTE ; Start 12/25/16 at 20:25; Stop 12/25/16 at 20:26; Status DC Propofol (Diprivan 1000 Mg/100ml Inj) 100 ml @ 0 mls/hr TITRATE IV Last administered on 12/26/16 06:08; Start 12/25/16 at 20:30 Phenylephrine HCl 1000 mcg 1,000 mcg STK-MED ONCE .ROUTE ; Start 12/25/16 at 20: 28; Stop 12/25/16 at 20:29; Status DC Fentanyl Citrate 250 ml @ As Directed STK-MED ONCE .ROUTE ; Start 12/25/16 at 20:34; Stop 12/25/16 at 20:35; Status DC Phenylephrine HCl/ Dextrose (Neosynephrine Inj/D5W 500 ml Inj) 500 ml @ 0 mls/ hr TITRATE IV Last administered on 12/27/16t 03:16; Start 12/25/16 at 20:45 Terbutaline Sulfate 1 mg 1 mg UNSCH PRN SQ FOR EXTRAVASATION PROTOCOL; Start at 20:45 Fentanyl Citrate (fentaNYL DRIP) 250 ml @ 0 mls/hr TITRATE IV ; Start 12/25/16 at 21:00 Magnesium Oxide 800 mg 800 mg UNSCH PRN PO For Magnesium 1.2 - 1.6 mg/dL Last administered on 12/27/16t 06:46; Start 12/25/16 at 21:00 Magnesium Sulfate 4 gm/Sodium Chloride 100 ml @ 50 mls/hr UNSCH PRN IV For Magnesium 0.9 - 1.1 mg/dL; Start 12/25/16 at 21:00 Magnesium Sulfate 2 gm/Sodium Chloride 100 ml @ 50 mls/hr UNSCH PRN IV For Magnesium 1.2 - 1.6 mg/dL; Start 12/25/16 at 21:00 Potassium Chloride 100 ml @ 50 mls/hr Q2H PRN IV For Potassium 2.8 - 3.2 mEq/L ; Start 12/25/16 at 21:00 Potassium Chloride 100 ml @ 50 mls/hr Q2H PRN IV For Potassium 3.3 - 3.5 mEq/ L Last administered on 12/29/16t 09:33; Start 12/25/16 at 21:00 Potassium Chloride 100 ml @ 50 mls/hr Q2H PRN IV For Potassium 2.8 - 3.2 mEq/L ; Start 12/25/16 at 21:00 Potassium Chloride (KCl 40 Meq Premix Inj) 100 ml @ 25 mls/hr UNSCH PRN IV For Potassium 3.3 - 3.5 mEq/L; Start 12/25/16 at 21:00 Potassium Phosphate (K-Phos) 2,000 mg Q4H PRN PO For Phosphorus < 2.5 mg/dL; Start 12/25/16 at 21:00 Potassium Phosphate 2000 mg 2,000 mg UNSCH PRN PO/TUBE SEE LABEL COMMENTS; Start 12/25/16 at 21:00 Potassium Phosphate 30 mmol/ Sodium Chloride 260 ml @ 42 mls/hr UNSCH PRN IV SEE LABEL COMMENTS; Start 12/25/16 at 21:00 Sodium Phosphate/ Sodium Chloride (Sodium Phosphate Inj/NS 250 ml Inj) 250 ml @ 42 mls/hr UNSCH PRN IV For Phosphorus < 2.5 mg/dL; Start 12/25/16 at 21:00 Chlorhexidine Gluconate (Peridex 0.12% Liq) 15 ml BID@08,20 MT Last administered on 12/27/16 07:40; Start 12/26/16 at 08:00 Dextrose (D50w (Vial) Inj) 25 ml UNSCH PRN IV PUSH HYPOGLYCEMIA-SEE COMMENTS; Start 12/25/16 at 21:00 Insulin Human Regular (NovoLIN R SUPPLEMENTAL SCALE) 1 Q6HR SQ Last administered on 12/29/16 06:51; Start 12/26/16 at 00:00 Albuterol/ Ipratropium (Duoneb Neb) 1 ampule Q6HR NEB INH Last administered on 12/29/16 09:46; Start 12/25/16 at 22:00 Albuterol/ Ipratropium 1 ampule 1 ampule Q2HR NEB PRN INH WHEEZING; Start 12/25 at 21:00 Dextrose 1,000 ml @ 42 mls/hr [id number] IV Last administered on 12/25/16 23:27 ; Start 12/25/16 at 21:00; Stop 12/26/16 at 14:01; Status DC Amiodarone HCl 150 mg/Dextrose 100 ml @ 600 mls/hr ONCE ONCE IV ; Start at 21:00; Stop 12/25/16 at 21:09; Status DC Amiodarone HCl 900 mg/Dextrose 500 ml @ 0 mls/hr CONTINUOUS IV ; Start 12/25/16 at 21:00; Stop 12/25/16 at 21:13; Status DC Magnesium Sulfate/ Dextrose 100 ml @ 100 mls/hr Q1H IV ; Start 12/25/16 at 21: 00; Stop 12/25/16 at 22:59; Status DC Potassium Chloride 100 ml @ 50 mls/hr BOLUS ONCE IV ; Start 12/25/16 at 21:00 ; Stop 12/25/16 at 22:59; Status DC Sodium Chloride (NS 250 ml Inj) 250 ml @ As Directed STK-MED ONCE .ROUTE ; Start 12/25/16 at 21:04; Stop 12/25/16 at 21:05; Status DC Amiodarone HCl 150 mg 150 mg STK-MED ONCE .ROUTE ; Start 12/25/16 at 21:05; Stop 12/25/16 at 21:06; Status DC Amiodarone HCl 450 mg/Dextrose 250 ml @ 0 mls/hr CONTINUOUS IV Last administered on 12/29/16 01:46; Start 12/25/16 at 21:15 Sodium Chloride 1,000 ml @ 999 mls/hr BOLUS ONCE IV Last administered on 12/26 14:17; Start 12/26/16 at 14:00; Stop 12/26/16 at 15:00; Status DC Sodium Chloride 1,000 ml @ 75 mls/hr [id number] IV Last administered on 16:38; Start 12/26/16 at 14:00; Stop 12/28/16 at 23:00; Status DC Amiodarone HCl/ Dextrose (Cordarone Inj/ D5W 100 ml Inj) 100 ml @ 100 mls/hr ONCE ONCE IV Last administered on 12/26/16 23:27; Start 12/26/16 at 23:00; Stop 12/26/16 at 23:59; Status DC Clopidogrel Bisulfate (Plavix) 150 mg NOW ONCE PO Last administered on 13:43; Start 12/28/16 at 12:30; Stop 12/28/16 at 12:34; Status DC Aspirin (Ecotrin Ec) 162 mg NOW ONCE PO Last administered on 12/28/16 13:43; Start 12/28/16 at 12:30; Stop 12/28/16 at 12:34; Status DC Clopidogrel Bisulfate (Plavix) 75 mg DAILY PO Last administered on 12/29/16 07 :44; Start 12/29/16 at 09:00 Aspirin (Ecotrin Ec) 162 mg DAILY PO Last administered on 12/29/16 07:44; Start 12/29/16 at 09:00 Prednisone (Deltasone) 5 mg DAILY PO Last administered on 12/29/16 07:44; Start 12/29/16 at 09:00 Furosemide (Lasix Inj) 40 mg ONCE ONCE IV PUSH Last administered on 12/28/16 23:10; Start 12/28/16 at 23:00; Stop 12/28/16 at 23:02; Status DC A/P Assessment and Plan A/P Hemoptysis, improved. -s/p EUS / EGD with esophageal stent placement. -Heparin drip DC'ed by Dr. Krause. -continue Carafate and Protonix -GI follow-up appreciated and GI has signed off for now. Septic shock, resolved -Secondary to MSSA bacteremia. MSSA bacteremia -Dvblif-w-Acrg infection - s/p removal of Itrdoe-a-Mqcs by GS. Dressing changes per GS. Appreciate assistance. - Catheter tip culture blood culture and wound culture also positive for MSSA - Continue abx per ID, on IV Ancef, po Rifampin x 6 weeks from port removal and (completed course of Levaquin PO on 12/13). LFTs 12/15/16 wnl, continue antibiotics/Ancef until 01/15/17. -Per infectious disease once patient is ready for discharged to notify her so order can be placed. Acute metabolic encephalopathy- resolved -Encephalopathy most likely secondary to severe sepsis -Continue Thiamine, MVI, folic acid. Acute hypoxemic respiratory failure secondary to COPD exacerbation, resolved. - Emergently intubated and placed on mechanical ventilation 12/02/16, extubated successfully 12/03/16 - Continue with oxygen keep sat >92% - continue neb treatment - s/p IV Solu-Medrol , continue to taper down prednisone. Lower extremity edema. -Secondary to being volume overloaded. -Continue with IV Lasix. NSTEMI/atrial fibrillation with RVR - difficult to control. still on cardizem and Amiodarone drip. - s/p PCI to LCx by Dr. Krause on 11/30/16 - Continue metoprolol,cardizem . -restarted on Aspirin and Plavix. - Anticoagulation contraindicated secondary to hematemesis -continue to monitor and adjust the regimen as needed. - 2-D echo no veg, EF 50-55% -Cardiology following. 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 Patient will have a EUS. - on Protonix - Oncology following. He will need weekly Erbitux and XRT outpatient. - Status post surgical resection for L parotid SCC. plan for chemo and radiation per oncology. Anemia -Hb now fairly stable - s/p 2 unit PRBC. Per heme/onc recs, transfuse if Hb<8. Monitor H&H. Liver cirrhosis -stable -Follow-up as outpatient. Diabetes - SSI ( medium scale) and Levemir 6 units BID for glycemic control. Monitor BS . -blood sugar levels expected to improve as steroid is being tapered off. -PROPH: - Bilateral lower extremity SCDs. palliative care following. still ill looking. will continue to monitor in ICU for now. low threshold for fiberline supervisor reconsult. d/w the RN at the bedside. Zamzam Kim MD Dec 29, 2016 10:22
--- NOTE | 2016-12-29 10:51 | PD.ONC.PN ---
Subjective Subjective Remarks Tmax 99.7 overnight. Patient on simple mask. HR remains in 130s despite cardizem and amiodarone. patient states, "I'm hanging in there." No specific complaints. Objective Data Date Time Temp Pulse Resp B/P Pulse Ox O2 Delivery O2 Flow Rate FiO2 12/29/16 10:00 130 12/29/16 09:48 97 Simple Mask 5.00 12/29/16 08:21 22 12/29/16 08:00 98 Simple Mask 5.00 12/29/16 08:00 127 12/29/16 08:00 99.0 127 24 147/64 95 12/29/16 06:00 130 12/29/16 04:00 129 12/29/16 04:00 99.7 129 14 134/59 98 12/29/16 02:00 128 12/29/16 00:00 98.6 97 25 138/64 100 12/29/16 00:00 97 12/28/16 22:00 127 12/28/16 20:00 95 Simple Mask 9.00 12/28/16 20:00 99.1 126 29 169/76 95 12/28/16 20:00 126 12/28/16 19:34 97 Simple Mask 9.00 12/28/16 18:00 127 12/28/16 16:00 98.6 126 21 145/58 97 12/28/16 16:00 126 12/28/16 14:00 127 12/28/16 12:00 98.3 128 22 144/62 97 Automatic Cuff 12/28/16 12:00 128 12/29/16 12/29/16 12/29/16 07:00 15:00 23:00 Intake Total 402 ml Output Total 2600 ml Balance -2198 ml Result Diagram: 12/29/1612 12/29/1612 Laboratory Results Laboratory Tests Test 12/28/16 12/29/16 19:38 05:12 Blood Gas Puncture Site ART LINE Blood Gas Patient Temperature 98.6 Blood Gas HCO3 28 mmol/L Blood Gas Base Excess 3.8 mmol/L Blood Gas Oxygen Saturation 96 % Arterial Blood pH 7.45 Arterial Blood Partial 41 mmHg Pressure CO2 Arterial Blood Partial 97 mmHg Pressure O2 Arterial Blood Oxygen Content 12.2 Vol % Arterial Blood 2.0 % Carboxyhemoglobin Arterial Blood Methemoglobin 0.6 % Blood Gas Hemoglobin 9.0 G/DL Oxygen Delivery Device SIMPLE MASK Blood Gas Liter Flow 9 L/M White Blood Count 8.5 TH/MM3 Red Blood Count 2.94 MIL/MM3 Hemoglobin 8.6 GM/DL Hematocrit 25.7 % Mean Corpuscular Volume 87.5 FL Mean Corpuscular Hemoglobin 29.2 PG Mean Corpuscular Hemoglobin 33.4 % Concent Red Cell Distribution Width 20.1 % Platelet Count 162 TH/MM3 Mean Platelet Volume 7.9 FL Sodium Level 132 MEQ/L Potassium Level 3.5 MEQ/L Chloride Level 93 MEQ/L Carbon Dioxide Level 31.0 MEQ/L Anion Gap 8 MEQ/L Blood Urea Nitrogen 9 MG/DL Creatinine 0.53 MG/DL Estimat Glomerular Filtration 159 ML/MIN Rate Random Glucose 181 MG/DL Calcium Level 7.4 MG/DL Protein Corrected Calcium 8.1 MG/DL Total Protein 5.9 GM/DL Administered Medications Medications (Trade) Dose Ordered Sig/Geovanny Route PRN Reason Start Time Stop Time Status Last Admin Dose Admin Sodium Chloride (NS Flush) 2 ml UNSCH PRN IV FLUSH FLUSH AFTER USING IV ACCESS 11/30/16 02:45 12/24/16 09:59 Sodium Chloride (NS Flush) 2 ml BID IV FLUSH 11/30/16 09:00 12/28/16 21:00 Oxycodone HCl (Roxicodone) 5 mg Q4H PRN PO PAIN SCALE 3 TO 5 11/30/16 02:45 12/26/16 18:20 Senna/Docusate Sodium (Rere-Colace) 1 tab BID PO 11/30/16 09:00 12/29/16 07:44 Acetaminophen (Tylenol) 325 mg Q4H PRN PO PAIN SCALE 1 TO 2 11/30/16 13:45 12/13/16 17:13 Clopidogrel Bisulfate (Plavix) 75 mg DAILY PO 12/01/16 09:00 Hold 12/25/16 08:06 Ondansetron HCl (Zofran Inj) 4 mg Q4H PRN IV NAUSEA 11/30/16 13:45 12/24/16 22:41 Sodium Chloride (NS Flush) 5 ml Q21D IV FLUSH 11/30/16 18:00 12/21/16 17:19 Heparin Sodium (Porcine) (Heparin Central Flush) 500 units Q21D IV FLUSH 11/30/16 18:00 11/30/16 18:04 Acetaminophen (Tylenol 650 Mg/ 20 ml Liq) 650 mg Q6H PRN PO FEVER 12/01/16 17:30 12/02/16 01:07 Polyethylene Glycol (Miralax) 17 gm DAILY PO 12/04/16 09:00 12/27/16 08:04 Thiamine HCl (Vitamin B1) 100 mg DAILY PO 12/05/16 09:00 12/29/16 07:56 Multivitamins (Theragran) 1 tab DAILY PO 12/05/16 09:00 12/29/16 07:44 Folic Acid (Folate) 1 mg DAILY PO 12/05/16 09:00 Hold 12/25/16 08:07 Rifampin 300 mg 300 mg Q12HR PO 12/06/16 09:15 01/15/17 23:00 12/29/16 08:57 Cefazolin Sodium/ Dextrose (Ancef 2 Gm Premix) 50 ml @ 100 mls/hr Q8H IV 12/06/16 10:00 01/15/17 23:00 12/29/16 08:15 Lorazepam (Ativan Inj) 1 mg Q4H PRN IV PUSH ANXIETY AND/OR AGITATION 12/09/16 15:15 12/28/16 22:02 Atorvastatin Calcium (Lipitor) 40 mg HS PO 12/12/16 21:00 Hold 12/24/16 21:00 Sodium Chloride (NS Flush) See Protocol DAILY IV FLUSH 12/13/16 09:00 12/27/16 08:04 Heparin Sodium (Porcine) (Heparin Central Flush) See Protocol DAILY IV FLUSH 12/13/16 09:00 12/27/16 08:05 Sodium Chloride (NS Flush) UNSCH PRN IV FLUSH SEE PROTOCOL TABLE 12/12/16 17:00 12/19/16 01:59 Insulin Detemir (Levemir Inj) 6 units Q12HR SQ 12/14/16 09:00 12/29/16 07:57 Lorazepam (Ativan) 0.5 mg DAILY PRN PO ANXIETY 12/18/16 15:45 Hold 12/19/16 08:29 Diltiazem HCl 90 mg 90 mg Q6H PO 12/18/16 23:00 Hold 12/25/16 12:14 Diltiazem HCl/ Sodium Chloride (Cardizem Inj/NS Inj) 125 ml @ 0 mls/hr TITRATE IV 12/19/16 18:15 12/29/16 08:15 Oxycodone HCl (Roxicodone) 15 mg Q4H PRN PO PAIN 6-10 12/21/16 11:00 12/28/16 23:36 Digoxin (Lanoxin) 0.25 mg DAILY PO 12/22/16 09:00 Hold 12/25/16 08:06 Sucralfate (Carafate Liq) 1 gm ACHS PO 12/22/16 11:00 12/29/16 06:19 Metoprolol Tartrate (Lopressor Inj) 5 mg Q1HR PRN IV PUSH RAPID HEART RATE 12/22/16 09:45 12/24/16 22:59 Pantoprazole Sodium (Protonix Inj) 40 mg Q12H IV PUSH 12/22/16 10:00 12/29/16 08:15 Aspirin (Ecotrin Ec) 81 mg DAILY PO 12/23/16 09:00 Hold 12/25/16 08:06 Metoprolol Tartrate (Lopressor) 25 mg Q6HR PO 12/22/16 13:00 12/29/16 06:19 Morphine Sulfate (Morphine Inj) 2 mg Q4H PRN IV PUSH pain >5 12/23/16 00:00 12/29/16 08:16 Furosemide 20 mg 20 mg DAILY IV PUSH 12/24/16 09:15 12/29/16 07:47 Propofol 100 ml @ 0 mls/hr TITRATE IV 12/25/16 20:30 12/26/16 06:08 Phenylephrine HCl/ Dextrose (Neosynephrine Inj/D5W 500 ml Inj) 500 ml @ 0 mls/hr TITRATE IV 12/25/16 20:45 12/27/16 03:16 Magnesium Oxide 800 mg 800 mg UNSCH PRN PO For Magnesium 1.2 - 1.6 mg/dL 12/25/16 21:00 12/27/16 06:46 Potassium Chloride (KCl 20 Meq Premix Inj) 100 ml @ 50 mls/hr Q2H PRN IV For Potassium 3.3 - 3.5 mEq/L 12/25/16 21:00 12/29/16 09:33 Chlorhexidine Gluconate (Peridex 0.12% Liq) 15 ml BID@08,20 MT 12/26/16 08:00 12/27/16 07:40 Insulin Human Regular 1 1 Q6HR SQ 12/26/16 00:00 12/29/16 06:51 Amiodarone HCl/ Dextrose (Cordarone Inj/ D5W (Inez) Inj) 250 ml @ 0 mls/hr CONTINUOUS IV 12/25/16 21:15 12/29/16 01:46 Clopidogrel Bisulfate (Plavix) 75 mg DAILY PO 12/29/16 09:00 12/29/16 07:44 Aspirin (Ecotrin Ec) 162 mg DAILY PO 12/29/16 09:00 12/29/16 07:44 Prednisone (Deltasone) 5 mg DAILY PO 12/29/16 09:00 12/29/16 07:44 Objective Remarks GENERAL: Chronically ill-appearing male supine in bed on 5L O2 via sm SKIN: Warm and dry. HEAD: Normocephalic. EYES: No injection or drainage. NECK: Supple, trachea midline. CARDIOVASCULAR: +S1/S2, tachy RESPIRATORY: anterior ray with scattered rhonchi On 5L O2 via SM GASTROINTESTINAL: Abdomen soft, non-tender, nondistended. EXTREMITIES: No cyanosis. +anasarca NEUROLOGICAL: awake and alert. normal speech. Assessment/Plan Problem List: (1) Esophageal adenocarcinoma Status: Acute Plan: --EUS with esophageal stent placement on 12/25 --++hemoptysis --we plan to give weekly Erbitux and XRT outpatient. --patient had OP EGD with biopsy, pathology showed adenocarcinoma. --EGD/Colonoscopy, 11/20/16--showed long stricture in the mid esophagus and distal esophagus, multiple biopsies were performed Pathology revealed invasive adenocarcinoma- distal esophagus --XRT simulation done 12/19. (2) SCC (squamous cell carcinoma) Status: Acute Plan: --has a head and neck, lung malignancy which was locally advanced. --received definitive treatment with surgery. Post surgery he had positive margins and some poor risk features and he was about to get concurrent chemotherapy and radiation and adjuvantly to achieve local control of the disease --PET scan to stage his disease prior to treatment showed an esophageal mass (3) Normocytic anemia Status: Acute Plan: --hgb stable but now patient has worsening hemoptysis/hematemesis, likely d/t esophageal mass --transfuse packed red blood cells if his hemoglobin drops below 8. --s/p iron infusion (4) NSTEMI (non-ST elevated myocardial infarction) Status: Acute Plan: --had elevated troponin and ST-segment changes consistent with acute LA. --s/p cardiac cath, stent placement to proximal left circumflex --cardiology following --on plavix and ASA (5) Afib Status: Acute Plan: --cardiology following. --on Cardizem and Amiodarone --on Plavix and ASA (6) Sepsis Status: Resolved Plan: BC, 7 no growth BC, 12/07 no growth --BC, 12/05 +, S. Aureus --had removal of port, + S. 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 Also with a new diagnosis of early stage gastric cancer Plan 1. advance diet per GI 2. monitor CBC 3. continue supportive care. Attending Statement The exam, history, and the medical decision-making described in the above note were completed with the assistance of the mid-level provider. I reviewed and agree with the findings presented. I attest that I had a [id number] encounter with the patient on the same day, and personally performed and documented my assessment and findings in the medical record. remains clinically unstable Afib with RVR on Cardizem and amiodarone anemia worsening Will transfuse to keep Hb > 8 d/w rn Problem Qualifiers (1) Afib: Qualified Code: I48.91 - Atrial fibrillation, unspecified type (2) Sepsis: Qualified Code: A41.9 - Sepsis, due to unspecified organism Perla Duran Dec 29, 2016 10:51 Brant Bell MD Dec 29, 2016 22:42
[2016-12-29] MEDS: LORazepam 2 MG/ML VIAL IV PUSH PRN (15:29)
--- NOTE | 2016-12-29 15:50 | HHI.CCPN ---
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 He was hypotensive, febrile up to 101 and received IV fluid resuscitation with improvement in his blood pressure. EKG showed ST-T wave changes, and troponin was elevated and peaked at 17.1. The patient has been evaluated by cardiology. For NSTEMI patient underwent PCI with bare metal stent to LCx by Dr. Krause on 11/30/16. The patient had a CT of the abdomen and pelvis on admission which showed marked soft tissue thickening in the distal esophagus concerning for esophageal cancer. The patient was also noted to have liver cirrhosis and mild splenomegaly. Patient has a history of alcohol intake but according to the girlfriend has not had alcoholic drinks for several months. CTA no evidence of pulmonary embolism or pneumonia. Critical care was consulted today for altered mentation, persistent fever, MSSA bacteremia and worsening sepsis. Apparently patient was agitated overnight requiring restraints. He also sustained a fall when he tried to climb out of the bed. CT of the head was negative except for a possible artifact left temporal region. An MRI which was done today came back negative. On my evaluation the ICU patient was very lethargic and tachypneic breathing approximately 35-40. ABG showed respiratory alkalosis. His altered mentation is most likely secondary to severe sepsis, alcohol withdrawal seems less likely. Blood cultures 4/4 growing MSSA, lactic acid 3,6. 12/25: Today underwent EGD with esophageal stent placement. significant bleeding from distal esophagus. GI and anesthesia felt patient should remain intubated for airway protection. In addition, patient persistently hypotensive requiring vasopressors, phenylephrine at 100 mcg/min, and in a flutter RVR on diltiazem drip. On my evaluation, patient was becoming more unstable. Adenosine 6mg iv x 1 was given which confirmed the rhythm as a flutter, but did not convert patient. give that patient was not anticoagulated, risk/benefit of electrical cardioversion at that time was in favor of conservative measures. patient bolused with amiodarone and placed on amiodarone drip, along with aggressive electrolyte replacement. Of note, patient also has new documented diagnosis of dynamic LVOT obstruction due to his LV hypertrophy and hyperdynamic cardiac function. Critical care medicine re-consulted to evaluate and manage his respiratory failure and cardiac dysrhythmias. 12/26: No more bleeding. Will work to extubate and start liquids, continue oral meds, especially beta gutierrez. Subjective 12/29: Reconsulted due to A. fib with RVR. Currently on 5 L simple mask. On amiodarone and Cardizem drips. Looks like some pulmonary edema will be actively diuresed. Objective Vital Signs Date Time Temp Pulse Resp B/P Pulse Ox O2 Delivery O2 Flow Rate FiO2 12/29/16 14:13 24 12/29/16 14:00 130 12/29/16 12:00 98.2 126/53 95 12/29/16 09:48 Simple Mask 5.00 12/26/16 08:01 40 Intake and Output 12/28/16 12/28/16 12/28/16 07:59 15:59 23:59 Intake Total 1138 ml 1752 ml 1075 ml Output Total 400 ml 1750 ml 950 ml Balance 738 ml 2 ml 125 ml Result Diagram: 12/29/16 0512 12/29/16 0512 Imaging Last Impressions Chest X-Ray 12/28/16 0000 Signed Impressions: Service Date/Time: Wednesday, December 28, 2016 22:28 - CONCLUSION: Increase in bilateral pulmonary opacity likely representing pulmonary edema. Persistent cardiac silhouette enlargement and bilateral pleural effusions. Jarod Mcrae MD GI Procedure 12/25/16 0000 Signed Impressions: Service Date/Time: December 19:33 - CONCLUSION: Spot film as above. Everett Pollock MD FACR Barium Swallow X-Ray 12/20/16 0000 Signed Impressions: Service Date/Time: Tuesday, December 20, 2016 13:15 - CONCLUSION: 1. The distal half of the esophagus demonstrates irregular luminal narrowing consistent with the patient's history of esophageal adenocarcinoma. 2. Mild dilatation of the esophagus immediately proximal to the esophageal mass. However, there are no signs of obstruction. 3. Small hiatal hernia. Washington Marroquin MD Abdomen MRI 12/17/16 0000 Signed Impressions: Service Date/Time: Saturday, December 17, 2016 13:59 - CONCLUSION: 1. No acute finding is identified to explain the abdominal pain. 2. Stable thickening of the distal esophagus. There is a single mildly enlarged left gastric lymph node measuring 12 x 10 mm. 3. Moderate sized bilateral pleural effusions, left larger than right, with associated compressive atelectasis. Washington Marroquin MD Head CT 12/01/16 0000 Signed Impressions: Service Date/Time: Thursday, December 01, 2016 07:59 - CONCLUSION: 1. Questionable area of low attenuation left temporal lobe could be artifact versus less likely infarct. MRI may be warranted based on clinical history. 2. No midline shift or mass effect. 3. No intraparenchymal hemorrhage. Jagjit Tapia MD Brain MRI 12/01/16 0000 Signed Impressions: Service Date/Time: Thursday, December 01, 2016 12:07 - CONCLUSION: Normal examination. Barrett Rodriguez MD Abdomen X-Ray 12/01/16 0000 Signed Impressions: Service Date/Time: Thursday, December 01, 2016 16:48 - CONCLUSION: No evidence of obstruction. Feeding tube tip in the distal stomach. Barrett Rodriguez MD Abdomen/Pelvis CT 11/29/16 [id number] Signed Impressions: Service Date/Time: Wednesday, November 30, 2016 01:35 - CONCLUSION: 1. Markedly abnormal appearance of the distal esophagus consistent with the history of esophageal carcinoma. 2. Atherosclerotic calcifications of the aorta and iliac vessels. 3. Cirrhotic appearance to the liver with a mildly nodular contour present. Erik Simon MD CT Angiography 11/29/16 [id number] Signed Impressions: Service Date/Time: Wednesday, November 30, 2016 01:35 - CONCLUSION: 1. No evidence for pulmonary embolism or pneumonia. 2. Abnormal appearance of the esophagus with and soft tissue consistent with the history of carcinoma. Erik Simon MD Objective Remarks GENERAL: Patient is 61 yo male, currently resting in bed on supplemental mask SKIN: Warm and dry. We'll perfused HEAD: Normocephalic. EYES: No scleral icterus. No injection or drainage. MOUTH: No bleeding. NECK: trachea midline. No JVD. No thrush CARDIOVASCULAR: Tachycardia, either. S1, S2 no S4. Without murmurs, clicks, rubs RESPIRATORY: Coarse rhonchorous breath sounds appreciated bilaterally. Diminished in bases. GASTROINTESTINAL: Abdomen soft, non-tender, nondistended. MUSCULOSKELETAL: Trace bilateral lower extremity peripheral edema. Neuro: Arousable and follows commands. Moves all 4 extremities spontaneous. Procedures central line/ arterial line placement intubation cardiac catheterization port removal EUS with esophageal stent placement A/P Assessment and Plan NEURO/Psych: Acute metabolic encephalopathy-improving Possible alcohol withdrawal - completed Chronic oxycodone use - Encephalopathy most likely secondary to hypoxia -Completed therapy with Thiamine, MVI for EtOH withdrawal Acetaminophen for fever Oxycodone for pain management 5-10 every 4 hours when necessary holding tramadol /home medication RESP: Acute hypoxemic respiratory failure - multifactorial History COPD Anterior airway Tobacco abuse Bilateral pleural effusions - Emergently intubated and placed on mechanical ventilation 12/02/16, extubated successfully 12/03/16 - (Unable to visualize cords with direct laryngoscopy. With GlideScope #4 blade Grade 2 view, easy intubation) - DuoNeb every 6 hours scheduled and every 2 hours when necessary Titrate nasal cannula to maintain saturations greater than equal to 90%. Currently on simple mask at 5 L Incentive spirometry while awake We'll aggressively diurese. Might need thoracentesis recheck CT chest today CV: Atrial fibrillation with RVR NSTEMI Dynamic LVOT obstruction Coronary artery disease status post bare metal stent to left circumflex Krause 12/01 Cardiac catheterization 12/01 revealed EF around 60%. Left main normal. RCA normal. LAD 70% ostial. Bare stent left circumflex 70%. - Repeat Bumex 1 mg IV 1 with Zaroxolyn 5 mg by mouth 1 with potassium replacement - Continue ASA 162 mg daily/Plavix 75 mg daily Currently on amiodarone drip at 0.5 mg/m, Cardizem drip at 20 mg an hour and metoprolol 25 mill grams every [address] Adler - cardiology. Due to underlying multiple comorbidities not a candidate for ablation at this time. Recommend medical management - 2-D echo no veg, EF 50-55% Holding home medications of losartan 100 mg, amlodipine 10 mg daily. On atorvastatin 40 by mouth daily for dyslipidemia GI: Invasive adenocarcinoma of the esophagus Liver cirrhosis - Dobhoff placed 12/02, cleared by speech for liquid diet. - GI following- has biopsy proven invasive adenoca of esophagus - Status post EUS/esophageal stent placement 12/25 - IV Protonix for twice a day and Carafate 1 g 4 times a day : Acute kidney failure/ATN resolved - Monitor renal function closely. Saxena catheter. -On Lasix 20 IV twice a day Follow BMP in a.m. ID: Septic shock-resolved MSSA bacteremia [id number] infection status post removal - Rapid clinical improvement after [id number] was removed remains off all pressors - Catheter tip culture blood culture and wound culture also positive for MSSA - Continue Ancef 2 g IV every 8 hours through 01/15 along with rifampin 300 mg by mouth twice a day - Infectious disease consulted by primary. 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 Bell is following - Status post surgical resection for L parotid SCC at [facility] 10/01 --Hematology plans to give weekly Erbitux and XRT outpatient. Transfuse goal hemoglobin greater than 8 ENDO: Hypokalemia Hypo-magnesium Diabetes Hypothyroidism Chronic prednisone use - Electrolyte replacement per protocol - SSI every 6 hours with Levemir 6 units every 12 hours. Holding home medications of metformin 1000 mg twice a day and glipizide 20 mill grams by mouth twice a day - Continue thyroid supplementation with levothyroxine 50 mg daily/home medication . TSH 0.555 on admission Continue prednisone 5 mg by mouth daily PROPH: - Bilateral lower extremity SCDs. -Protonix 40 iv twice a day Level II follow-up Hubert Yoder MD Dec 29, 2016 15:50
[2016-12-29] MEDS ORDERED: BUMETANIDE INJ 1 MG/4 ML VIAL IV PUSH ONE (16:00)
[2016-12-29] MEDS ORDERED: METOLAZONE 5 MG TAB PO ONE (16:00)
[2016-12-29] MEDS: MAGNESIUM SULFATE 1 GM PREMIX 100 ML IV SCH ×3 (16:22→17:49)
[2016-12-29] MEDS: POTASSIUM CHLOR 10 MEQ PREMIX 100 ML IV SCH ×3 (16:22→17:14)
[2016-12-29 17:33] LABS: BLOOD GAS BASE EXCESS 6.7 mmol/L (-2-2); BLOOD GAS CARBOXYHEMOGLOBIN 1.8 % (0-4); BLOOD GAS HCO3 31 mmol/L (22-26); BLOOD GAS METHEMOGLOBIN 0.7 % (0-2); BLOOD GAS O2 HGB SATURATION 94 % (90-100); BLOOD GAS OXYGEN CONTENT 19.5 Vol % (12.0-20.0); BLOOD GAS PCO2 47 mmHg (38-42); BLOOD GAS PO2 84 mmHg (61-120); BLOOD GAS TOTAL HGB 14.8 G/DL (12.0-16.0); CRITICAL VALUE NO; DRAW SITE ART LINE; LITER FLOW 6 L/M; OXYGEN DEVICE SIMPLE MASK; STAT NO; TEMP CORR TO 98.6
[2016-12-30] VITALS (16 sets, daily range): BP systolic 116–144; BP diastolic 46–64; PULSE 80–128; RESP 14–22; TEMP 97.1–98.7; O2SAT 92–100
[2016-12-30] MEDS: ceFAZolin 2 GM PREMIX 50 ML IV SCH ×3 (01:31→17:23)
[2016-12-30] MEDS: LORazepam 2 MG/ML VIAL IV PUSH PRN (01:40)
[2016-12-30] MEDS: RESP: ALBUTEROL 2.5 MG/IPRATROPIUM 0.5 MG NEB (SCH) INH ×4 (03:39→20:58)
[2016-12-30 04:26] LABS: HEMATOCRIT 26.4 % (39.0-51.0); MEAN CORPUSCULAR HEMOGLOBIN 29.5 PG (27.0-34.0); MEAN CORPUSCULAR HGB CONC 34.3 % (32.0-36.0); PLATELET COUNT 196 TH/MM3 (150-450); RED BLOOD COUNT 3.07 MIL/MM3 (4.50-5.90); RED CELL DISTRIBUTION WIDTH 19.6 % (11.6-17.2); REVIEW FLAG FINAL; WHITE BLOOD COUNT 10.4 TH/MM3 (4.0-11.0)
[2016-12-30] MEDS: DILTIAZEM 125 MG/NS 100 ML IV SCH ×6 (04:46→16:37)
[2016-12-30] MEDS: AMIODARONE INJ 450 MG in D5W (EXCEL BAG) 241 ML IV SCH ×2 (04:47→16:36)
[2016-12-30 04:53] LABS: BICARBONATE 35.1 MEQ/L (21.0-32.0); MAGNESIUM 1.8 MG/DL (1.5-2.5); POTASSIUM 3.6 MEQ/L (3.5-5.1)
[2016-12-30] MEDS: INSULIN NovoLIN REGULAR SUPPLEMENTAL SCALE SQ SCH ×3 (05:03→17:23)
[2016-12-30] MEDS: METOPROLOL TARTRATE 25 MG TAB PO SCH ×4 (05:03→23:43)
[2016-12-30] MEDS: LEVOTHYROXINE SODIUM 50 MCG TAB PO SCH (05:03)
[2016-12-30 05:05] LABS: CALCIUM-PROTEIN CORRECTED 8.1 MG/DL (8.5-10.1)
[2016-12-30] MEDS: SUCRALFATE 1 GM/10 ML CUP PO SCH ×4 (06:37→22:29)
[2016-12-30] MEDS: CHLORHEXIDINE 0.12% (ORAL KIT) 15 ML CUP MT SCH ×2 (08:00→20:00)
[2016-12-30] MEDS: RIFAMPIN 150 MG CAP PO SCH ×2 (08:57→22:29)
[2016-12-30] MEDS: MULTIVITAMIN TAB PO SCH (08:57)
[2016-12-30] MEDS: DOCUSATE SODIUM 50 MG/SENNA 8.6 MG TAB PO SCH ×2 (08:57→22:29)
[2016-12-30] MEDS: ASPIRIN EC 81 MG TABEC PO SCH (08:57)
[2016-12-30] MEDS: CLOPIDOGREL 75 MG TAB PO SCH (08:58)
[2016-12-30] MEDS: predniSONE 5 MG TAB PO SCH (08:58)
[2016-12-30] MEDS: THIAMINE HCL 100 MG TAB PO SCH (08:58)
[2016-12-30] MEDS: POLYETHYLENE GLYCOL 17 GM PKG PO SCH (08:59)
[2016-12-30] MEDS: SODIUM CHLORIDE 0.9% FLUSH 10 ML FLUSH IV FLUSH SCH ×3 (09:00→21:00)
[2016-12-30] MEDS: FUROSEMIDE 20 MG/2 ML VIAL IV PUSH SCH (09:26)
[2016-12-30] MEDS: PANTOPRAZOLE SODIUM 40 MG VIAL IV PUSH SCH ×2 (09:26→22:22)
[2016-12-30] MEDS: INSULIN DETEMIR 100 UNITS/ML VIAL SQ SCH (09:27)
[2016-12-30] MEDS: METOPROLOL TARTRATE 5 MG/5 ML VIAL IV PUSH PRN (10:37)
--- NOTE | 2016-12-30 12:45 | HHI.CCPN ---
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 He was hypotensive, febrile up to 101 and received IV fluid resuscitation with improvement in his blood pressure. EKG showed ST-T wave changes, and troponin was elevated and peaked at 17.1. The patient has been evaluated by cardiology. For NSTEMI patient underwent PCI with bare metal stent to LCx by Dr. Krause on 11/30/16. The patient had a CT of the abdomen and pelvis on admission which showed marked soft tissue thickening in the distal esophagus concerning for esophageal cancer. The patient was also noted to have liver cirrhosis and mild splenomegaly. Patient has a history of alcohol intake but according to the girlfriend has not had alcoholic drinks for several months. CTA no evidence of pulmonary embolism or pneumonia. Critical care was consulted today for altered mentation, persistent fever, MSSA bacteremia and worsening sepsis. Apparently patient was agitated overnight requiring restraints. He also sustained a fall when he tried to climb out of the bed. CT of the head was negative except for a possible artifact left temporal region. An MRI which was done today came back negative. On my evaluation the ICU patient was very lethargic and tachypneic breathing approximately 35-40. ABG showed respiratory alkalosis. His altered mentation is most likely secondary to severe sepsis, alcohol withdrawal seems less likely. Blood cultures 4/4 growing MSSA, lactic acid 3,6. 12/25: Today underwent EGD with esophageal stent placement. significant bleeding from distal esophagus. GI and anesthesia felt patient should remain intubated for airway protection. In addition, patient persistently hypotensive requiring vasopressors, phenylephrine at 100 mcg/min, and in a flutter RVR on diltiazem drip. On my evaluation, patient was becoming more unstable. Adenosine 6mg iv x 1 was given which confirmed the rhythm as a flutter, but did not convert patient. give that patient was not anticoagulated, risk/benefit of electrical cardioversion at that time was in favor of conservative measures. patient bolused with amiodarone and placed on amiodarone drip, along with aggressive electrolyte replacement. Of note, patient also has new documented diagnosis of dynamic LVOT obstruction due to his LV hypertrophy and hyperdynamic cardiac function. Critical care medicine re-consulted to evaluate and manage his respiratory failure and cardiac dysrhythmias. 12/26: No more bleeding. Will work to extubate and start liquids, continue oral meds, especially beta gutierrez. 12/29: Reconsulted due to A. fib with RVR. Currently on 5 L simple mask. On amiodarone and Cardizem drips. Looks like some pulmonary edema will be actively diuresed. Subjective 12/30: Remains in A. fib with RVR. Currently on 10 L simple mask. Continues on amiodarone drip at 0.5 mg per minute and Cardizem drip at 20 mg an hour. Despite diuresis, increasing oxygen requirements. Objective Vital Signs Date Time Temp Pulse Resp B/P Pulse Ox O2 Delivery O2 Flow Rate FiO2 12/30/16 09:36 96 Simple Mask 10.00 12/30/16 07:59 17 12/30/16 06:00 100 12/30/16 04:00 98.2 144/61 12/26/16 08:01 40 Intake and Output 12/29/16 12/29/16 12/30/16 08:00 16:00 00:00 Intake Total 402 ml 1032 ml 927 ml Output Total 2600 ml 2325 ml 1950 ml Balance -2198 ml -1293 ml -1023 ml Result Diagram: 12/30/16 0408 12/30/16 0408 Imaging Last Impressions Chest X-Ray 12/28/16 0000 Signed Impressions: Service Date/Time: Wednesday, December 28, 2016 22:28 - CONCLUSION: Increase in bilateral pulmonary opacity likely representing pulmonary edema. Persistent cardiac silhouette enlargement and bilateral pleural effusions. Jarod Mcrae MD GI Procedure 12/25/16 0000 Signed Impressions: Service Date/Time: December 19:33 - CONCLUSION: Spot film as above. Everett Pollock MD FACR Barium Swallow X-Ray 12/20/16 0000 Signed Impressions: Service Date/Time: Tuesday, December 20, 2016 13:15 - CONCLUSION: 1. The distal half of the esophagus demonstrates irregular luminal narrowing consistent with the patient's history of esophageal adenocarcinoma. 2. Mild dilatation of the esophagus immediately proximal to the esophageal mass. However, there are no signs of obstruction. 3. Small hiatal hernia. Washington Marroquin MD Abdomen MRI 12/17/16 0000 Signed Impressions: Service Date/Time: Saturday, December 17, 2016 13:59 - CONCLUSION: 1. No acute finding is identified to explain the abdominal pain. 2. Stable thickening of the distal esophagus. There is a single mildly enlarged left gastric lymph node measuring 12 x 10 mm. 3. Moderate sized bilateral pleural effusions, left larger than right, with associated compressive atelectasis. Washington Marroquin MD Head CT 12/01/16 0000 Signed Impressions: Service Date/Time: Thursday, December 01, 2016 07:59 - CONCLUSION: 1. Questionable area of low attenuation left temporal lobe could be artifact versus less likely infarct. MRI may be warranted based on clinical history. 2. No midline shift or mass effect. 3. No intraparenchymal hemorrhage. Jagjit Tapia MD Brain MRI 12/01/16 0000 Signed Impressions: Service Date/Time: Thursday, December 01, 2016 12:07 - CONCLUSION: Normal examination. Barrett Rodriguez MD Abdomen X-Ray 12/01/16 0000 Signed Impressions: Service Date/Time: Thursday, December 01, 2016 16:48 - CONCLUSION: No evidence of obstruction. Feeding tube tip in the distal stomach. Barrett Rodriguez MD Abdomen/Pelvis CT 11/29/16 1126 Signed Impressions: Service Date/Time: Wednesday, November 30, 2016 01:35 - CONCLUSION: 1. Markedly abnormal appearance of the distal esophagus consistent with the history of esophageal carcinoma. 2. Atherosclerotic calcifications of the aorta and iliac vessels. 3. Cirrhotic appearance to the liver with a mildly nodular contour present. Erik Simon MD CT Angiography 11/29/16 2948 Signed Impressions: Service Date/Time: Wednesday, November 30, 2016 01:35 - CONCLUSION: 1. No evidence for pulmonary embolism or pneumonia. 2. Abnormal appearance of the esophagus with and soft tissue consistent with the history of carcinoma. Erik Simon MD Objective Remarks GENERAL: Patient is 61 yo male, currently resting in bed on supplemental mask SKIN: Warm and dry. We'll perfused HEAD: Normocephalic. EYES: No scleral icterus. No injection or drainage. MOUTH: No bleeding. NECK: trachea midline. No JVD. No thrush CARDIOVASCULAR: Tachycardia, either. S1, S2 no S4. Without murmurs, clicks, rubs RESPIRATORY: Coarse rhonchorous breath sounds appreciated bilaterally. Diminished in bases. GASTROINTESTINAL: Abdomen soft, non-tender, nondistended. MUSCULOSKELETAL: Trace bilateral lower extremity peripheral edema. Neuro: Arousable and follows commands. Moves all 4 extremities spontaneous. Procedures central line/ arterial line placement intubation cardiac catheterization port removal EUS with esophageal stent placement A/P Assessment and Plan NEURO/Psych: Acute metabolic encephalopathy-improving Possible alcohol withdrawal - completed Chronic oxycodone use - Encephalopathy most likely secondary to hypoxia -Completed therapy with Thiamine, MVI for EtOH withdrawal Acetaminophen for fever Oxycodone for pain management 5-10 every 4 hours when necessary holding tramadol /home medication RESP: Acute hypoxemic respiratory failure - multifactorial History COPD Anterior airway Tobacco abuse Bilateral pleural effusions - Emergently intubated and placed on mechanical ventilation 12/02/16, extubated successfully 12/03/16 - (Unable to visualize cords with direct laryngoscopy. With GlideScope #4 blade Grade 2 view, easy intubation) - DuoNeb every 6 hours scheduled and every 2 hours when necessary Titrate nasal cannula to maintain saturations greater than equal to 90%. Currently on simple mask at 5 L Incentive spirometry while awake CT chest revealed bilateral pleural effusions. Request IR thoracentesis today. CV: Atrial fibrillation with RVR NSTEMI Dynamic LVOT obstruction Coronary artery disease status post bare metal stent to left circumflex Krause 12/01 Cardiac catheterization 12/01 revealed EF around 60%. Left main normal. RCA normal. LAD 70% ostial. Bare stent left circumflex 70%. -Holding neuro symmetrical milligrams IV daily - Continue ASA 162 mg daily/Plavix 75 mg daily Currently on amiodarone drip at 0.5 mg/m, Cardizem drip at 20 mg an hour and metoprolol 25 mill grams every [address] Adler - cardiology. Due to underlying multiple comorbidities not a candidate for ablation at this time. Recommend medical management - 2-D echo no veg, EF 50-55% Holding home medications of losartan 100 mg, amlodipine 10 mg daily. On atorvastatin 40 by mouth daily for dyslipidemia GI: Invasive adenocarcinoma of the esophagus Liver cirrhosis - Dobhoff placed 12/02, cleared by speech for liquid diet. - GI following- has biopsy proven invasive adenoca of esophagus - Status post EUS/esophageal stent placement 12/25 - IV Protonix for twice a day and Carafate 1 g 4 times a day : Acute kidney failure/ATN resolved - Monitor renal function closely. Saxena catheter. -On Lasix 20 IV daily Follow BMP in a.m. ID: Septic shock-resolved MSSA bacteremia [id number] infection status post removal - Rapid clinical improvement after [id number] was removed remains off all pressors - Catheter tip culture blood culture and wound culture also positive for MSSA - Continue Ancef 2 g IV every 8 hours through 01/15 along with rifampin 300 mg by mouth twice a day - Infectious disease consulted by primary. 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 Bell is following - Status post surgical resection for L parotid SCC at [facility] 10/01 --Hematology plans to give weekly Erbitux and XRT outpatient. Transfuse goal hemoglobin greater than 8 ENDO: Hypokalemia Hypo-magnesium Diabetes Hypothyroidism Chronic prednisone use - Electrolyte replacement per protocol - SSI every 6 hours with Levemir 6 units every 12 hours. Holding home medications of metformin 1000 mg twice a day and glipizide 20 mill grams by mouth twice a day - Continue thyroid supplementation with levothyroxine 50 mg daily/home medication . TSH 0.555 on admission Continue prednisone 5 mg by mouth daily PROPH: - Bilateral lower extremity SCDs. No pharmacological prophylaxis secondary to hemoptysis -Protonix 40 iv twice a day Level II follow-up Hubert Yoder MD Dec 30, 2016 12:45
--- NOTE | 2016-12-30 13:42 | HHI.IDPN ---
Subjective Subjective Remarks Patient is a 61-year-old male, currently lethargic, and unable to give any history. History has been obtained from the chart. 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 It was reportedly malignant as well. He presented to the hospital complaining of generalized weakness, abdominal pain and progressive swallowing difficulty over the last 3 weeks. Evaluation in the emergency room revealed abnormal EKG, and he underwent cardiac catheterization. He had non-ST DE, and had revascularization with stent placement of his left circumflex artery. Patient is spiked to 103, and there were 2 blood cultures done yesterday that are now reported as growing staph aureus. Patient currently has a Saxena catheter. There is a lot of sediment in his urine, and his urine culture is also showing staph aureus. CT of the abdomen and pelvis did not show any abnormality except the soft tissue mass in the esophagus. He had atherosclerosis of his vasculature. There was also evidence of possible liver cirrhosis. Patient is being evaluated for chemotherapy and radiation, but he has not been started. He had an Tcccxq-e-Oekb placement on November 12 on his right upper chest. Notes reviewed D/W RN C/O SOB On FM To get thoracentesis today Still in atrial fib rate 100-110 responds to lopressor Also on cordarone and cardizem Antibiotics Ancef/rifampin - plan to complete 01/15 Lines Port - removed 12/02 PICC Past Medical History Hypertension Hyperlipidemia CAD Diabetes 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 and he had good margins Recurrent squamous cell carcinoma on the left face, with involvement of the parotid gland, status post surgery at [facility] Recently found to have esophageal mass Past Surgical History Appendectomy Liver Biopsy Resection of a squamous cell carcinoma on the left cheek in 2011 Extensive surgery on the left face and neck for recurrent squamous cell carcinoma Port Placement November 12, 2016 Allergies: Coded Allergies: penicillin G (Unverified Allergy, Mild, Hives, 12/30/16) Objective . Vital Signs Date Time Temp Pulse Resp B/P Pulse Ox O2 Delivery O2 Flow Rate FiO2 12/30/16 09:36 96 Simple Mask 10.00 12/30/16 08:00 98 Simple Mask 7.00 12/30/16 07:59 17 12/30/16 06:00 100 12/30/16 04:00 98.2 127 16 144/61 94 12/30/16 04:00 127 12/30/16 02:00 94 12/30/16 00:00 108 12/30/16 00:00 98.5 108 15 116/48 99 12/29/16 22:00 129 12/29/16 21:09 94 Simple Mask 10.00 12/29/16 20:00 97.6 105 20 138/54 94 12/29/16 20:00 105 12/29/16 20:00 94 Simple Mask 7.00 12/29/16 18:00 116 12/29/16 16:00 99.1 114 19 139/62 94 12/29/16 16:00 114 12/29/16 14:13 24 12/29/16 14:00 130 12/29/16 12/29/16 12/30/16 15:00 23:00 07:00 Intake Total 1032 ml 927 ml 465 ml Output Total 2325 ml 1950 ml 900 ml Balance -1293 ml -1023 ml -435 ml Intake Oral 480 ml 240 ml 120 ml IV Total 552 ml 687 ml 345 ml Output Urine Total 2325 ml 1950 ml 900 ml # Bowel Movements 0 0 0 . Laboratory Tests Test 12/29/16 12/30/16 05:12 04:08 White Blood Count 8.5 TH/MM3 10.4 TH/MM3 Red Blood Count 2.94 MIL/MM3 3.07 MIL/MM3 Hemoglobin 8.6 GM/DL 9.1 GM/DL Hematocrit 25.7 % 26.4 % Mean Corpuscular Volume 87.5 FL 86.0 FL Mean Corpuscular Hemoglobin 29.2 PG 29.5 PG Mean Corpuscular Hemoglobin 33.4 % 34.3 % Concent Red Cell Distribution Width 20.1 % 19.6 % Platelet Count 162 TH/MM3 196 TH/MM3 Mean Platelet Volume 7.9 FL 8.1 FL Laboratory Tests Test 12/29/16 12/30/16 05:12 04:08 Sodium Level 132 MEQ/L 126 MEQ/L Potassium Level 3.5 MEQ/L 3.6 MEQ/L Chloride Level 93 MEQ/L 86 MEQ/L Carbon Dioxide Level 31.0 MEQ/L 35.1 MEQ/L Anion Gap 8 MEQ/L 5 MEQ/L Blood Urea Nitrogen 9 MG/DL 10 MG/DL Creatinine 0.53 MG/DL 0.54 MG/DL Estimat Glomerular Filtration 159 ML/MIN 156 ML/MIN Rate Random Glucose 181 MG/DL 195 MG/DL Calcium Level 7.4 MG/DL 7.4 MG/DL Protein Corrected Calcium 8.1 MG/DL 8.1 MG/DL Total Protein 5.9 GM/DL 5.9 GM/DL Phosphorus Level 2.1 MG/DL Magnesium Level 1.8 MG/DL Imaging Last 48 hours Impressions Chest X-Ray 12/26/16 0600 Signed Impressions: Service Date/Time: Monday, December 26, 2016 03:45 - CONCLUSION: Improving pulmonary edema and effusions, now mild/small. Unchanged moderate cardiomegaly. Washington Beasley MD GI Procedure 12/25/16 0000 Signed Impressions: Service Date/Time: December 19:33 - CONCLUSION: Spot film as above. Everett Pollock MD FACR Chest X-Ray 12/25/16 0000 Signed Impressions: Service Date/Time: December 20:28 - CONCLUSION: ET in good position; increasing congestive failure. Everett Pollock MD FACR Chest X-Ray 12/05/16 0600 Signed Impressions: Service Date/Time: Monday, December 05, 2016 03:30 - CONCLUSION: 1. Cardiomegaly and findings of vascular congestion without overt failure. There has been no significant change when compared to the prior exam. Bobby Matias MD Head CT 12/01/16 0000 Signed Impressions: Service Date/Time: Thursday, December 01, 2016 07:59 - CONCLUSION: 1. Questionable area of low attenuation left temporal lobe could be artifact versus less likely infarct. MRI may be warranted based on clinical history. 2. No midline shift or mass effect. 3. No intraparenchymal hemorrhage. Jagjit Tapia MD Brain MRI 12/01/16 0000 Signed Impressions: Service Date/Time: Thursday, December 01, 2016 12:07 - CONCLUSION: Normal examination. Barrett Rodriguez MD Abdomen X-Ray 12/01/16 0000 Signed Impressions: Service Date/Time: Thursday, December 01, 2016 16:48 - CONCLUSION: No evidence of obstruction. Feeding tube tip in the distal stomach. Barrett Rodriguez MD Abdomen/Pelvis CT 11/29/16 1046 Signed Impressions: Service Date/Time: Wednesday, November 30, 2016 01:35 - CONCLUSION: 1. Markedly abnormal appearance of the distal esophagus consistent with the history of esophageal carcinoma. 2. Atherosclerotic calcifications of the aorta and iliac vessels. 3. Cirrhotic appearance to the liver with a mildly nodular contour present. Erik Simon MD CT Angiography 11/29/16 2348 Signed Impressions: Service Date/Time: Wednesday, November 30, 2016 01:35 - CONCLUSION: 1. No evidence for pulmonary embolism or pneumonia. 2. Abnormal appearance of the esophagus with and soft tissue consistent with the history of carcinoma. Erik Simon MD Chest X-Ray 12/03/16 0600 Signed Impressions: Service Date/Time: Saturday, December 03, 2016 04:43 - CONCLUSION: Increasing consolidation in the left lower lung. Bilateral interstitial changes. Niko Wilcox MD Chest X-Ray 12/03/16 0000 Signed Impressions: Service Date/Time: Saturday, December 03, 2016 07:48 - CONCLUSION: 1. Persistent left retrocardiac density and slight interstitial prominence. Jagjit Tapia MD Chest X-Ray 12/02/16 0000 Signed Impressions: Service Date/Time: Friday, December 02, 2016 15:55 - CONCLUSION: Normal examination with endotracheal tube and central lines in good position. Barrett Rodriguez MD Chest X-Ray 12/02/16 0000 Signed Impressions: Service Date/Time: Friday, December 02, 2016 08:24 - CONCLUSION: Mild perihilar vascular congestion. Endotracheal tube is in good position Barrett Rodriguez MD Chest X-Ray 12/02/16 0000 Signed Impressions: Service Date/Time: Friday, December 02, 2016 06:53 - CONCLUSION: Underinflated examination with atelectasis at the lung bases. Given the technique, no acute abnormality or significant interval change is appreciated. Washington Marroquin MD Physical Exam GENERAL: Awake, alert, SOB when he moves, on FM SKIN: Warm and dry. No generalized rash EYES: Extraocular movements full and intact. [place]. No scleral icterus. No injection or drainage. EARS, NOSE AND THROAT: Nose without bleeding or purulent nasal discharge. No sinus tenderness. NECK: Trachea midline. Supple and not tender, no meningeal signs CARDIOVASCULAR: Irregular rate and rhythm, HR 129. There is a coarse systolic murmur at base of the heart. No rub. RESPIRATORY: Coarse BS bilaterally. Decreased BS at bases. Previous port with intact dressing, healing ABDOMEN: Soft, not distended, not tender. Bowel sounds present and normoactive. No organomegaly. EXTREMITIES: No clubbing, cyanosis. Has pitting BLE edema, weeping. No calf tenderness. Well perfused and warm. NEUROLOGICAL: Awake, non-focal PSYCHIATRIC: calm and cooperative LINE: Dry dressing on previous port site, healing. PICC site ok : Saxena in place Assessment & Plan Remarks IMPRESSION Sepsis, with shock has MSSA due to port infection, better - S/P removal port 12/02 - last (+) BC 12/05 Respiratory failure - due to fluid - has L base infiltrate, and GNR in sputum - S/P Rx 12/13 (+) UC with Staph aureus, due to current bacteremia Recurrent squamous cell CA Esophageal CA, S/P EUS and stent placement Lethargy and SOB due to sepsis, resolved - has acidosis, resolved Renal insufficiency, due to sepsis and shock, better Confusion - ?meds - better Atrial fib, rate still goes up and down New murmur - last echo with new "pseudo" outflow tract obstruction, ?this is source RECOMMENDATION Continue Rifampin, for synergy vs MSSA - follow LFT Continue IV Ancef He will need 6 weeks IV Abx - anticipated end date Jan 15 (6 weeks from last +BC) Labs weekly while on Abx: CBC, creatinine and LFT - will have HEPAS order and monitor - call if abnormal and with questions To get thoracentesis today D/W Carola Dick MD Dec 30, 2016 13:42
--- NOTE | 2016-12-30 13:49 | PD.ONC.PN ---
Subjective Subjective Remarks Afebrile overnight. Patient resting in bed in nad. watching tv. still with poor PO intake. Objective Data Date Time Temp Pulse Resp B/P Pulse Ox O2 Delivery O2 Flow Rate FiO2 12/30/16 09:36 96 Simple Mask 10.00 12/30/16 08:00 98 Simple Mask 7.00 12/30/16 07:59 17 12/30/16 06:00 100 12/30/16 04:00 98.2 127 16 144/61 94 12/30/16 04:00 127 12/30/16 02:00 94 12/30/16 00:00 108 12/30/16 00:00 98.5 108 15 116/48 99 12/29/16 22:00 129 12/29/16 21:09 94 Simple Mask 10.00 12/29/16 20:00 97.6 105 20 138/54 94 12/29/16 20:00 105 12/29/16 20:00 94 Simple Mask 7.00 12/29/16 18:00 116 12/29/16 16:00 99.1 114 19 139/62 94 12/29/16 16:00 114 12/29/16 14:13 24 12/29/16 14:00 130 12/30/16 12/30/16 12/30/16 07:00 15:00 23:00 Intake Total 465 ml Output Total 900 ml Balance -435 ml Result Diagram: 12/30/16 0408 12/30/16 0408 Laboratory Results Laboratory Tests Test 12/29/16 12/30/16 17:19 04:08 Blood Gas Puncture Site ART LINE Blood Gas Patient Temperature 98.6 Blood Gas HCO3 31 mmol/L Blood Gas Base Excess 6.7 mmol/L Blood Gas Oxygen Saturation 94 % Arterial Blood pH 7.44 Arterial Blood Partial 47 mmHg Pressure CO2 Arterial Blood Partial 84 mmHg Pressure O2 Arterial Blood Oxygen Content 19.5 Vol % Arterial Blood 1.8 % Carboxyhemoglobin Arterial Blood Methemoglobin 0.7 % Blood Gas Hemoglobin 14.8 G/DL Oxygen Delivery Device SIMPLE MASK Blood Gas Liter Flow 6 L/M White Blood Count 10.4 TH/MM3 Red Blood Count 3.07 MIL/MM3 Hemoglobin 9.1 GM/DL Hematocrit 26.4 % Mean Corpuscular Volume 86.0 FL Mean Corpuscular Hemoglobin 29.5 PG Mean Corpuscular Hemoglobin 34.3 % Concent Red Cell Distribution Width 19.6 % Platelet Count 196 TH/MM3 Mean Platelet Volume 8.1 FL Sodium Level 126 MEQ/L Potassium Level 3.6 MEQ/L Chloride Level 86 MEQ/L Carbon Dioxide Level 35.1 MEQ/L Anion Gap 5 MEQ/L Blood Urea Nitrogen 10 MG/DL Creatinine 0.54 MG/DL Estimat Glomerular Filtration 156 ML/MIN Rate Random Glucose 195 MG/DL Calcium Level 7.4 MG/DL Protein Corrected Calcium 8.1 MG/DL Phosphorus Level 2.1 MG/DL Magnesium Level 1.8 MG/DL Total Protein 5.9 GM/DL Administered Medications Medications (Trade) Dose Ordered Sig/Geovanny Route PRN Reason Start Time Stop Time Status Last Admin Dose Admin Sodium Chloride (NS Flush) 2 ml UNSCH PRN IV FLUSH FLUSH AFTER USING IV ACCESS 11/30/16 02:45 12/24/16 09:59 Sodium Chloride (NS Flush) 2 ml BID IV FLUSH 11/30/16 09:00 12/30/16 09:29 Oxycodone HCl (Roxicodone) 5 mg Q4H PRN PO PAIN SCALE 3 TO 5 11/30/16 02:45 12/30/16 09:36 Senna/Docusate Sodium (Rere-Colace) 1 tab BID PO 11/30/16 09:00 12/30/16 08:57 Acetaminophen (Tylenol) 325 mg Q4H PRN PO PAIN SCALE 1 TO 2 11/30/16 13:45 12/13/16 17:13 Clopidogrel Bisulfate (Plavix) 75 mg DAILY PO 12/01/16 09:00 Hold 12/25/16 08:06 Ondansetron HCl (Zofran Inj) 4 mg Q4H PRN IV NAUSEA 11/30/16 13:45 12/24/16 22:41 Sodium Chloride (NS Flush) 5 ml Q21D IV FLUSH 11/30/16 18:00 12/21/16 17:19 Heparin Sodium (Porcine) (Heparin Central Flush) 500 units Q21D IV FLUSH 11/30/16 18:00 11/30/16 18:04 Acetaminophen (Tylenol 650 Mg/ 20 ml Liq) 650 mg Q6H PRN PO FEVER 12/01/16 17:30 12/02/16 01:07 Polyethylene Glycol (Miralax) 17 gm DAILY PO 12/04/16 09:00 12/30/16 08:59 Thiamine HCl (Vitamin B1) 100 mg DAILY PO 12/05/16 09:00 12/30/16 08:58 Multivitamins (Theragran) 1 tab DAILY PO 12/05/16 09:00 12/30/16 08:57 Folic Acid (Folate) 1 mg DAILY PO 12/05/16 09:00 Hold 12/25/16 08:07 Rifampin 300 mg 300 mg Q12HR PO 12/06/16 09:15 01/15/17 23:00 12/30/16 08:57 Cefazolin Sodium/ Dextrose (Ancef 2 Gm Premix) 50 ml @ 100 mls/hr Q8H IV 12/06/16 10:00 01/15/17 23:00 12/30/16 09:01 Lorazepam (Ativan Inj) 1 mg Q4H PRN IV PUSH ANXIETY AND/OR AGITATION 12/09/16 15:15 12/30/16 01:40 Atorvastatin Calcium (Lipitor) 40 mg HS PO 12/12/16 21:00 Hold 12/24/16 21:00 Sodium Chloride (NS Flush) See Protocol DAILY IV FLUSH 12/13/16 09:00 12/27/16 08:04 Heparin Sodium (Porcine) (Heparin Central Flush) See Protocol DAILY IV FLUSH 12/13/16 09:00 12/27/16 08:05 Sodium Chloride (NS Flush) UNSCH PRN IV FLUSH SEE PROTOCOL TABLE 12/12/16 17:00 12/19/16 01:59 Lorazepam (Ativan) 0.5 mg DAILY PRN PO ANXIETY 12/18/16 15:45 Hold 12/19/16 08:29 Diltiazem HCl 90 mg 90 mg Q6H PO 12/18/16 23:00 Hold 12/25/16 12:14 Diltiazem HCl/ Sodium Chloride (Cardizem Inj/NS Inj) 125 ml @ 0 mls/hr TITRATE IV 12/19/16 18:15 12/30/16 10:38 Oxycodone HCl (Roxicodone) 15 mg Q4H PRN PO PAIN 6-10 12/21/16 11:00 12/30/16 06:49 Digoxin (Lanoxin) 0.25 mg DAILY PO 12/22/16 09:00 Hold 12/25/16 08:06 Sucralfate (Carafate Liq) 1 gm ACHS PO 12/22/16 11:00 12/30/16 12:06 Metoprolol Tartrate (Lopressor Inj) 5 mg Q1HR PRN IV PUSH RAPID HEART RATE 12/22/16 09:45 12/30/16 10:37 Pantoprazole Sodium (Protonix Inj) 40 mg Q12H IV PUSH 12/22/16 10:00 12/30/16 09:26 Aspirin (Ecotrin Ec) 81 mg DAILY PO 12/23/16 09:00 Hold 12/25/16 08:06 Metoprolol Tartrate (Lopressor) 25 mg Q6HR PO 12/22/16 13:00 12/30/16 12:15 Furosemide 20 mg 20 mg DAILY IV PUSH 12/24/16 09:15 Hold 12/30/16 09:26 Propofol (Diprivan 1000 Mg/100ml Inj) 100 ml @ 0 mls/hr TITRATE IV 12/25/16 20:30 12/26/16 06:08 Magnesium Oxide 800 mg 800 mg UNSCH PRN PO For Magnesium 1.2 - 1.6 mg/dL 12/25/16 21:00 12/27/16 06:46 Potassium Chloride 100 ml @ 50 mls/hr Q2H PRN IV For Potassium 3.3 - 3.5 mEq/L 12/25/16 21:00 12/29/16 09:33 Sodium Phosphate/ Sodium Chloride (Sodium Phosphate Inj/NS 250 ml Inj) 250 ml @ 42 mls/hr UNSCH PRN IV For Phosphorus < 2.5 mg/dL 12/25/16 21:00 12/30/16 06:49 Chlorhexidine Gluconate (Peridex 0.12% Liq) 15 ml BID@08,20 MT 12/26/16 08:00 12/27/16 07:40 Insulin Human Regular 1 1 Q6HR SQ 12/26/16 00:00 12/30/16 12:00 Amiodarone HCl/ Dextrose (Cordarone Inj/ D5W ([place]) Inj) 250 ml @ 0 mls/hr CONTINUOUS IV 12/25/16 21:15 12/30/16 04:47 Clopidogrel Bisulfate (Plavix) 75 mg DAILY PO 12/29/16 09:00 12/30/16 08:58 Aspirin (Ecotrin Ec) 162 mg DAILY PO 12/29/16 09:00 12/30/16 08:57 Prednisone (Deltasone) 5 mg DAILY PO 12/29/16 09:00 12/30/16 08:58 Levothyroxine Sodium (Synthroid) 50 mcg DAILY@06 PO 12/30/16 06:00 12/30/16 05:03 Objective Remarks GENERAL: Chronically ill-appearing male upright in bed, on 10L O2 via SM SKIN: Warm and dry. HEAD: Normocephalic. EYES: No injection or drainage. NECK: Supple, trachea midline. CARDIOVASCULAR: +S1/S2, tachy RESPIRATORY: scattered rhonchi GASTROINTESTINAL: Abdomen soft, non-tender, nondistended. EXTREMITIES: No cyanosis. +anasarca NEUROLOGICAL: awake and alert. moving extremities. normal speech. Assessment/Plan Problem List: (1) Esophageal adenocarcinoma Status: Acute Plan: --EUS with esophageal stent placement on 12/25 --++hemoptysis --we plan to give weekly Erbitux and XRT outpatient. --patient had OP EGD with biopsy, pathology showed adenocarcinoma. --EGD/Colonoscopy, 11/20/16--showed long stricture in the mid esophagus and distal esophagus, multiple biopsies were performed Pathology revealed invasive adenocarcinoma- distal esophagus --XRT simulation done 12/19. (2) SCC (squamous cell carcinoma) Status: Acute Plan: --has a head and neck, lung malignancy which was locally advanced. --received definitive treatment with surgery. Post surgery he had positive margins and some poor risk features and he was about to get concurrent chemotherapy and radiation and adjuvantly to achieve local control of the disease --PET scan to stage his disease prior to treatment showed an esophageal mass (3) Normocytic anemia Status: Acute Plan: --hgb stable but now patient has worsening hemoptysis/hematemesis, likely d/t esophageal mass --transfuse packed red blood cells if his hemoglobin drops below 8. --s/p iron infusion (4) NSTEMI (non-ST elevated myocardial infarction) Status: Acute Plan: --had elevated troponin and ST-segment changes consistent with acute [place]. --s/p cardiac cath, stent placement to proximal left circumflex --cardiology following --on plavix and ASA (5) Afib Status: Acute Plan: --cardiology following. --on Cardizem and Amiodarone --on Plavix and ASA (6) Sepsis Status: Resolved Plan: BC, 7 no growth BC, 12/07 no growth --BC, 12/05 +, S. Aureus --had removal of port, + S. 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 Also with a new diagnosis of early stage gastric cancer Plan 1. monitor CBC 2. supportive care 3. transfuse to keep hgb>8 Attending Statement The exam, history, and the medical decision-making described in the above note were completed with the assistance of the mid-level provider. I reviewed and agree with the findings presented. I attest that I had a [id number] encounter with the patient on the same day, and personally performed and documented my assessment and findings in the medical record. Afib with RVR and difficult to rate control Ask cardiology to see patient again in am Rule out underlying PE will get CTA transfuse 1 unit of pRBC in the setting of Afib with rvr and hypoxia will give IV lasix after transfusion o/n events reviewed d/w rn earlier Problem Qualifiers (1) Afib: Qualified Code: I48.91 - Atrial fibrillation, unspecified type (2) Sepsis: Qualified Code: A41.9 - Sepsis, due to unspecified organism Perla Duran Dec 30, 2016 13:49 Brant Bell MD Dec 30, 2016 23:35
--- NOTE | 2016-12-30 13:50 | RADRPT ---
EXAM DATE/TIME: 12/30/2016 13:19 [facility] COMPARISON: CT ABDOMEN & PELVIS W CONTRAST, November 30, 2016, 1:35. CHEST SINGLE AP, December 28, 2016, 22:28. INDICATIONS : Post thoracentesis. MEDICAL HISTORY : Diabetes mellitus type II. Squamous cell carcinoma, esophageal carcinoma and renal insufficienc y. SURGICAL HISTORY : Coronary artery stent. Appendectomy. ENCOUNTER: Initial ACUITY: 1 day PAIN SCORE: 1/10 LOCATION: Bilateral chest FINDINGS: There is advanced cardiomegaly. A pericardial effusion is not excluded. There are small bilateral effusions larger on the right than the left. There is diffuse interstitial prominence throughout the lung suggesting congestive failure. An underlying pneumonia is not excluded . The visualized bony structures are intact. CONCLUSION: 1. Advanced cardiomegaly. Pericardial effusion is not excluded. 2. Bilateral effusions and diffuse interstitial prominence suggesting congestive failure. 3. No pneumothorax identified following thoracentesis. 4. There is a PICC which enters from the left arm. The catheter tip appears to be at the level of the innominate vein and SVC. Benjamin Pollock MD on December 30, 2016 at 13:45 Board Certified Radiologist. This report was verified electronically.
[2016-12-30] MEDS: MAGNESIUM SULFATE 1 GM PREMIX 100 ML IV SCH ×2 (14:17→14:30)
--- NOTE | 2016-12-30 14:20 | RADRPT ---
EXAM DATE/TIME: 12/30/2016 10:56 [facility] COMPARISON: No previous studies available for comparison. INDICATIONS : Pleural effusions RADIATION DOSE: 10.03 CTDIvol (mGy) MEDICAL HISTORY : Cardiovascular disease. Hypertension. Hepatitis C. SURGICAL HISTORY : Appendectomy. ENCOUNTER: Initial ACUITY: 1 day PAIN SCALE: 6/10 LOCATION: Chest TECHNIQUE: Volumetric scanning of the chest was performed. Using automated exposure control and adjustment of t he mA and/or kV according to patient size, radiation dose was kept as low as reasonably achievable to obtain optimal diagnostic quality images. DICOM format image data is available electronically for r eview and comparison. Follow-up recommendations for detected pulmonary nodules are based at a minimum on nodule size and pa tient risk factors according to Fleischner Society Guidelines. FINDINGS: There are moderate bilateral pleural effusions being greater on the right than the left. There is consolidation seen throughout the upper lobes and in the right middle and right lower lobes . There is atelectasis at the left lower lobe. There is a moderate pericardial effusion measuring up to 1.7 cm anteriorly. Coronary artery calcifications are present. There is a PICC line in place from the right arm with t he tip in the SVC. There is mildly prominent non-specific lymph nodes seen in the mediastinum and the right parat gallo region, the AP window region and the subcarinal area. The patient has a distal esophageal stent in place. This extends from the mid thoracic aorta down to the EG junction region. There is increased density throughout the stent which could be related to either so ft tissue or fluid. Visualized [id number] in the upper abdomen are unremarkable. There does appear to be a non- displaced right 3rd rib fracture. There is spurring in the thoracic spine. CONCLUSION: 1. Moderate bilateral pleural effusions. 2. Areas of consolidation in the upper lobes bilaterally and in the right middle and right lower lobe . There is some combination of consolidation and atelectasis seen in the left lower lobe. Underlyin g diffuse processes should be considered including edema. 3. Esophageal stent in place. There is increased density within the stent which could be from fluid or soft tissue. 4. Non-specific mildly prominent lymph nodes in the mediastinum. 5. Moderate pericardial effusion. 6. Possible 3rd non-displaced right rib fracture. Washington Chou MD on December 30, 2016 at 11:27 Board Certified Radiologist. This report was verified electronically.
[2016-12-30] MEDS ORDERED: SODIUM PHOSPHATE INJ 30 MMOL in SODIUM CHLOR 0.9% 250 ML INJ 250 ML IV ONE (15:00)
[2016-12-30 15:37] LABS: APTT (PATIENT) 28.6 SEC (24.3-30.1)
[2016-12-30 15:38] LABS: INTERNATIONAL NORMALIZED RATIO 1.2 RATIO
--- NOTE | 2016-12-30 16:12 | HHI.PR ---
Subjective Subjective Notes Heart rate continues to be elevated Objective Vitals/I&O Vital Signs Date Time Temp Pulse Resp B/P Pulse Ox O2 Delivery O2 Flow Rate FiO2 12/30/16 09:36 96 Simple Mask 10.00 12/30/16 07:59 17 12/30/16 06:00 100 12/30/16 04:00 98.2 144/61 12/26/16 08:01 40 Labs Laboratory Tests Test 12/29/16 12/30/16 12/30/16 17:19 04:08 15:00 Blood Gas Puncture Site ART LINE Blood Gas Patient Temperature 98.6 Blood Gas HCO3 31 Blood Gas Base Excess 6.7 Blood Gas Oxygen Saturation 94 Arterial Blood pH 7.44 Arterial Blood Partial 47 Pressure CO2 Arterial Blood Partial 84 Pressure O2 Arterial Blood Oxygen Content 19.5 Arterial Blood 1.8 Carboxyhemoglobin Arterial Blood Methemoglobin 0.7 Blood Gas Hemoglobin 14.8 Oxygen Delivery Device SIMPLE MASK Blood Gas Liter Flow 6 White Blood Count 10.4 Red Blood Count 3.07 Hemoglobin 9.1 Hematocrit 26.4 Mean Corpuscular Volume 86.0 Mean Corpuscular Hemoglobin 29.5 Mean Corpuscular Hemoglobin 34.3 Concent Red Cell Distribution Width 19.6 Platelet Count 196 Mean Platelet Volume 8.1 Sodium Level 126 Potassium Level 3.6 Chloride Level 86 Carbon Dioxide Level 35.1 Anion Gap 5 Blood Urea Nitrogen 10 Creatinine 0.54 Estimat Glomerular Filtration 156 Rate Random Glucose 195 Calcium Level 7.4 Protein Corrected Calcium 8.1 Phosphorus Level 2.1 Magnesium Level 1.8 Total Protein 5.9 Prothrombin Time 13.0 Prothromb Time International 1.2 Ratio Activated Partial 28.6 Thromboplast Time Narrative Exam patient in radiology during visit A/P Assessment and Plan 61 year old male s/p Infusaport removal with esophageal cancer in need to feeding tube placement -Plan for lap G tube once more stable -GS will follow peripherally Attending Note - Dr. Hilario Haji candidate at present for surgery; will wait until he is more stable The exam, history, and the medical decision-making described in the above note were completed with the assistance of the mid-level provider. I reviewed and agree with the findings presented. I attest that I had a [id number] encounter with the patient on the same day, and personally performed and documented my assessment and findings in the medical record. Cindy Parekh Dec 30, 2016 16:12 Bebeto Rich MD Jan 19, 2017 17:03
[2016-12-30] MEDS: POTASSIUM CHLOR 10 MEQ PREMIX 100 ML IV SCH ×3 (16:37→18:31)
--- NOTE | 2016-12-30 16:52 | RADRPT ---
EXAM DATE/TIME: 12/30/2016 15:34 INDICATIONS : Right pleural fluid DEVICE(S): 1.) 6 Fr [id number] FLUID: Total volume of 1200 cc of clear, yellow fluid was removed. Fluid was sent for laboratory ordered studies. MEDICAL HISTORY : Hypertension. esophageal mass SURGICAL HISTORY : None. ENCOUNTER: Initial ACUITY: 1 day PAIN SCORE: 0/10 LOCATION: Right chest PROCEDURE: 1. CT guided right thoracentesis. 2. Conscious sedation with continuous EKG and oximetry monitoring. 3. EKG and oximetry remained stable throughout the procedure. The site was prepped in sterile fashion. Full sterile technique was used, including cap, mask, steri le gloves and gown and a large sterile sheet. Hand hygiene and 2% chlorhexidine and/or betadine/alco hol prep was utilized per protocol for cutaneous antisepsis. The skin and subcutaneous tissues were infiltrated with local anesthetic solution. Using automated exposure control and adjustment of the mA and/or kV according to patient size, radiation dose was kept as low as reasonably achievable to obta in optimal diagnostic quality images. DICOM format image data is available electronically for review and comparison. With the patient supine on the CT table, event representative images were obtained through the chest demonstrating t he right sided pleural effusion. Dermatotomy was made and the prescribed catheter was advanced into the pleural fluid. The pleural fluid as above was removed from the hemithorax. Post procedural scan show reduction in the amount of fluid with no evidence of pneumothorax. The patient tolerated the procedure well and there were no complications. EKG and oximetry remained s table throughout the procedure. The patient was sent to recovery in stable condition. CONCLUSION: Uncomplicated CT-guided thoracentesis. Kiran Harding MD on December 30, 2016 at 16:50 Board Certified Radiologist. This report was verified electronically.
--- NOTE | 2016-12-30 17:07 | RADRPT ---
EXAM DATE/TIME: 12/30/2016 16:37 [facility] COMPARISON: CHEST SINGLE AP, December 30, 2016, 13:19. INDICATIONS : Post thoracentesis. MEDICAL HISTORY : Hypertension. Esophageal mass. SURGICAL HISTORY : None. ENCOUNTER: Subsequent ACUITY: 1 day PAIN SCORE: 0/10 LOCATION: Bilateral chest FINDINGS: The patient is post thoracentesis. No pneumothorax is seen. There is fairly diffuse infiltrate throug hout both lungs. There is advanced cardiomegaly. The PICC is in good position. CONCLUSION: 1. No pneumothorax post thoracentesis. Benjamin Pollock MD on December 30, 2016 at 17:05 Board Certified Radiologist. This report was verified electronically.
[2016-12-30 17:32] LABS: TOTAL PROTEIN,PLEURAL FLUID 1.5 GM/DL
[2016-12-30 17:56] LABS: PLEURAL FLUID LYMPHS 11 %
[2016-12-30 19:09] LABS: MEAN CELL VOLUME 86.9 FL (80.0-100.0); MEAN CORPUSCULAR HGB CONC 34.5 % (32.0-36.0); PLATELET COUNT 190 TH/MM3 (150-450); RED BLOOD COUNT 2.88 MIL/MM3 (4.50-5.90); RED CELL DISTRIBUTION WIDTH 19.6 % (11.6-17.2); REVIEW FLAG FINAL; WHITE BLOOD COUNT 10.2 TH/MM3 (4.0-11.0)
[2016-12-30] MEDS ORDERED: diphenhydrAMINE HCL 25 MG CAP PO ONE (23:45)
[2016-12-30] MEDS ORDERED: ACETAMINOPHEN 325 MG TAB PO ONE (23:45)
[2016-12-30] MEDS ORDERED: FUROSEMIDE 20 MG/2 ML VIAL IV PUSH ONE (23:45)
[2016-12-31] VITALS (20 sets, daily range): BP systolic 113–131; BP diastolic 46–79; PULSE 81–118; RESP 15–21; TEMP 98–98.5; O2SAT 86–99
[2016-12-31] MEDS: INSULIN DETEMIR 100 UNITS/ML VIAL SQ SCH ×3 (00:01→20:06)
[2016-12-31] MEDS ORDERED: IOHEXOL 350 MG/ML 10 ML VIAL (for RAD DIAG) IV ONE (01:04)
--- NOTE | 2016-12-31 01:20 | RADRPT ---
EXAM DATE/TIME: 12/31/2016 01:00 [facility] COMPARISON: CT THORAX W/O CONTRAST, December 30, 2016, 10:56. CT GUIDED THORACENTESIS RIGHT, December 30, 2016, 15:3 4. CHEST SINGLE AP, December 30, 2016, 16:37. CT PULMONARY ANGIOGRAM, November 30, 2016, 1:35. INDICATIONS : Shortness of breath. Hypoxia. Evaluate for emboli. IV CONTRAST: 75 cc Omnipaque 350 (iohexol) IV RADIATION DOSE: 23.46 CTDIvol (mGy) MEDICAL HISTORY : Hypertension. Chronic obstructive pulmonary disease. Hepatitis C.Esophageal mass. Hiatal hernia. SURGICAL HISTORY : CT guided right thoracentesis. ENCOUNTER: Initial ACUITY: 1 day PAIN SCALE: 6/10 LOCATION: Bilateral chest TECHNIQUE: Volumetric scanning of the chest was performed using a pulmonary embolism protocol MIP images were re constructed. Using automated exposure control and adjustment of the mA and/or kV according to patien t size, radiation dose was kept as low as reasonably achievable to obtain optimal diagnostic quality images. DICOM format image data is available electronically for review and comparison. Follow-up recommendations for detected pulmonary nodules are based at a minimum on nodule size and pa tient risk factors according to Fleischner Society Guidelines. FINDINGS: PULMONARY ARTERIES: No filling defects are seen in the pulmonary arteries through the segmental level. LUNGS: Diffuse severe consolidative infiltrates throughout most of the right lung and patchy configuration, and patchy areas of infiltrate in the left upper lung and collapse of left lower lung, similar to sonia or. No evidence of pneumothorax. PLEURAE: Large left pleural effusion measuring 5.6 cm. Right pleural effusion measures 3.2 cm, smaller from p rior (patient underwent thoracentesis on the right side yesterday) MEDIASTINUM: Stent in the distal esophagus. Mediastinal lymph nodes measure up to 1.9 cm. Large pericardial effu siddharth, stable. CONCLUSION: 1. Study is negative for pulmonary embolism. 2. Pericardial effusion, diffuse patchy consolidation in both lungs, collapse left lower lobe, bilate ral pleural effusions, esophageal stent, similar to yesterday's CT thorax. Kulwant Gupta MD on December 31, 2016 at 1:12 Board Certified Radiologist. This report was verified electronically.
[2016-12-31] MEDS: ceFAZolin 2 GM PREMIX 50 ML IV SCH ×3 (02:17→18:05)
[2016-12-31] MEDS: RESP: ALBUTEROL 2.5 MG/IPRATROPIUM 0.5 MG NEB (SCH) INH ×4 (03:15→20:12)
[2016-12-31 04:32] LABS: BLOOD GAS BASE EXCESS 11.1 mmol/L (-2-2); BLOOD GAS CARBOXYHEMOGLOBIN 1.9 % (0-4); BLOOD GAS HCO3 36 mmol/L (22-26); BLOOD GAS METHEMOGLOBIN 0.7 % (0-2); BLOOD GAS O2 HGB SATURATION 97 % (90-100); BLOOD GAS OXYGEN CONTENT 12.6 Vol % (12.0-20.0); BLOOD GAS PCO2 51 mmHg (38-42); BLOOD GAS PO2 117 mmHg (61-120); BLOOD GAS TOTAL HGB 9.2 G/DL (12.0-16.0); TEMP CORR TO 98.6
[2016-12-31 04:33] LABS: CRITICAL VALUE YES; DRAW SITE LT BRACHIAL; FIO2 100 %; LITER FLOW 15 L/M; NUMBER OF ARTERIAL PUNCTURES 1; OXYGEN DEVICE NRB; STAT YES
[2016-12-31 04:34] LABS: HEMATOCRIT 27.4 % (39.0-51.0); MEAN CELL VOLUME 87.2 FL (80.0-100.0); MEAN CORPUSCULAR HEMOGLOBIN 28.5 PG (27.0-34.0); MEAN CORPUSCULAR HGB CONC 32.6 % (32.0-36.0); PLATELET COUNT 210 TH/MM3 (150-450); RED BLOOD COUNT 3.14 MIL/MM3 (4.50-5.90); RED CELL DISTRIBUTION WIDTH 19.3 % (11.6-17.2); REVIEW FLAG FINAL; WHITE BLOOD COUNT 12.4 TH/MM3 (4.0-11.0)
[2016-12-31 05:06] LABS: BICARBONATE 35.8 MEQ/L (21.0-32.0); MAGNESIUM 1.7 MG/DL (1.5-2.5); POTASSIUM 3.9 MEQ/L (3.5-5.1)
--- NOTE | 2016-12-31 05:14 | RADRPT ---
EXAM DATE/TIME: 12/31/2016 03:30 [facility] COMPARISON: CHEST SINGLE AP, December 30, 2016, 16:37. INDICATIONS : Shortness of breath. MEDICAL HISTORY : Hypertension. Esophageal mass. SURGICAL HISTORY : None. ENCOUNTER: Subsequent ACUITY: 2 weeks PAIN SCORE: Non-responsive. LOCATION: Bilateral chest FINDINGS: Changing pattern of consolidative infiltrates in the right lung with new area of involvement in the l ower right lung and persistent patchy consolidation right upper lung. Dense consolidation of left lo wer lung with loss of delineation left hemidiaphragm similar to prior. PICC line catheter tip projec ts over the proximal superior vena cava. Esophageal stent in place. CONCLUSION: Increasing consolidative infiltrates in the right lower lung, persistence patchy infiltrates in the r ight upper lung and persistent dense consolidation of the left lower lung. Kulwant Gupta MD on December 31, 2016 at 5:11 Board Certified Radiologist. This report was verified electronically.
[2016-12-31] MEDS: SUCRALFATE 1 GM/10 ML CUP PO SCH ×4 (05:16→20:04)
[2016-12-31] MEDS: LEVOTHYROXINE SODIUM 50 MCG TAB PO SCH (05:16)
[2016-12-31] MEDS: METOPROLOL TARTRATE 25 MG TAB PO SCH ×3 (05:16→18:05)
[2016-12-31 05:29] LABS: CALCIUM-PROTEIN CORRECTED 8.1 MG/DL (8.5-10.1)
[2016-12-31] MEDS: INSULIN NovoLIN REGULAR SUPPLEMENTAL SCALE SQ SCH ×4 (06:00→18:00)
[2016-12-31] MEDS: SODIUM CHLORIDE 0.9% FLUSH 10 ML FLUSH IV FLUSH SCH ×3 (08:13→22:02)
[2016-12-31] MEDS: CHLORHEXIDINE 0.12% (ORAL KIT) 15 ML CUP MT SCH ×2 (08:15→19:56)
--- NOTE | 2016-12-31 08:31 | HHI.CCPN ---
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 He was hypotensive, febrile up to 101 and received IV fluid resuscitation with improvement in his blood pressure. EKG showed ST-T wave changes, and troponin was elevated and peaked at 17.1. The patient has been evaluated by cardiology. For NSTEMI patient underwent PCI with bare metal stent to LCx by Dr. Krause on 11/30/16. The patient had a CT of the abdomen and pelvis on admission which showed marked soft tissue thickening in the distal esophagus concerning for esophageal cancer. The patient was also noted to have liver cirrhosis and mild splenomegaly. Patient has a history of alcohol intake but according to the girlfriend has not had alcoholic drinks for several months. CTA no evidence of pulmonary embolism or pneumonia. Critical care was consulted today for altered mentation, persistent fever, MSSA bacteremia and worsening sepsis. Apparently patient was agitated overnight requiring restraints. He also sustained a fall when he tried to climb out of the bed. CT of the head was negative except for a possible artifact left temporal region. An MRI which was done today came back negative. On my evaluation the ICU patient was very lethargic and tachypneic breathing approximately 35-40. ABG showed respiratory alkalosis. His altered mentation is most likely secondary to severe sepsis, alcohol withdrawal seems less likely. Blood cultures 4/4 growing MSSA, lactic acid 3,6. 12/25: Today underwent EGD with esophageal stent placement. significant bleeding from distal esophagus. GI and anesthesia felt patient should remain intubated for airway protection. In addition, patient persistently hypotensive requiring vasopressors, phenylephrine at 100 mcg/min, and in a flutter RVR on diltiazem drip. On my evaluation, patient was becoming more unstable. Adenosine 6mg iv x 1 was given which confirmed the rhythm as a flutter, but did not convert patient. give that patient was not anticoagulated, risk/benefit of electrical cardioversion at that time was in favor of conservative measures. patient bolused with amiodarone and placed on amiodarone drip, along with aggressive electrolyte replacement. Of note, patient also has new documented diagnosis of dynamic LVOT obstruction due to his LV hypertrophy and hyperdynamic cardiac function. Critical care medicine re-consulted to evaluate and manage his respiratory failure and cardiac dysrhythmias. 12/26: No more bleeding. Will work to extubate and start liquids, continue oral meds, especially beta gutierrez. 12/29: Reconsulted due to A. fib with RVR. Currently on 5 L simple mask. On amiodarone and Cardizem drips. Looks like some pulmonary edema will be actively diuresed. Subjective 12/30: Remains in A. fib with RVR. Currently on 10 L simple mask. Continues on amiodarone drip at 0.5 mg per minute and Cardizem drip at 20 mg an hour. Despite diuresis, increasing oxygen requirements. 12/31: Good response to diuresis. Weight still up about 10 kg. Dense infiltrate right chest, increasing FiO2 requirements. Objective Vital Signs Date Time Temp Pulse Resp B/P Pulse Ox O2 Delivery O2 Flow Rate FiO2 12/31/16 07:41 96 Partial Rebreather 10.00 12/31/16 06:00 100 12/31/16 04:00 98.0 19 114/50 Intake and Output 12/30/16 12/30/16 12/31/16 08:00 16:00 00:00 Intake Total 465 ml 982 ml 765 ml Output Total 900 ml 2900 ml 1950 ml Balance -435 ml -1918 ml -1185 ml Result Diagram: 12/31/16 0412 12/31/16 0412 Other Results Laboratory Tests Test 12/31/16 04:10 Blood Gas Puncture Site LT BRACHIAL Blood Gas Patient Temperature 98.6 Blood Gas HCO3 36 mmol/L (22-26) Blood Gas Base Excess 11.1 mmol/L (-2-2) Blood Gas Oxygen Saturation 97 % (90-100) Arterial Blood pH 7.46 (7.380-7.420) Arterial Blood Partial 51 mmHg (38-42) Pressure CO2 Arterial Blood Partial 117 mmHg Pressure O2 (61-120) Arterial Blood Oxygen Content 12.6 Vol % (12.0-20.0) Arterial Blood 1.9 % (0-4) Carboxyhemoglobin Arterial Blood Methemoglobin 0.7 % (0-2) Blood Gas Hemoglobin 9.2 G/DL (12.0-16.0) Oxygen Delivery Device NRB Blood Gas Liter Flow 15 L/M Blood Gas Inspired Oxygen 100 % Imaging Last Impressions Chest X-Ray 12/28/16 0000 Signed Impressions: Service Date/Time: Wednesday, December 28, 2016 22:28 - CONCLUSION: Increase in bilateral pulmonary opacity likely representing pulmonary edema. Persistent cardiac silhouette enlargement and bilateral pleural effusions. Jarod Mcrae MD GI Procedure 12/25/16 0000 Signed Impressions: Service Date/Time: December 19:33 - CONCLUSION: Spot film as above. Everett Pollock MD FACR Barium Swallow X-Ray 12/20/16 0000 Signed Impressions: Service Date/Time: Tuesday, December 20, 2016 13:15 - CONCLUSION: 1. The distal half of the esophagus demonstrates irregular luminal narrowing consistent with the patient's history of esophageal adenocarcinoma. 2. Mild dilatation of the esophagus immediately proximal to the esophageal mass. However, there are no signs of obstruction. 3. Small hiatal hernia. Washington Marroquin MD Abdomen MRI 12/17/16 0000 Signed Impressions: Service Date/Time: Saturday, December 17, 2016 13:59 - CONCLUSION: 1. No acute finding is identified to explain the abdominal pain. 2. Stable thickening of the distal esophagus. There is a single mildly enlarged left gastric lymph node measuring 12 x 10 mm. 3. Moderate sized bilateral pleural effusions, left larger than right, with associated compressive atelectasis. Washington Marroquin MD Head CT 12/01/16 0000 Signed Impressions: Service Date/Time: Thursday, December 01, 2016 07:59 - CONCLUSION: 1. Questionable area of low attenuation left temporal lobe could be artifact versus less likely infarct. MRI may be warranted based on clinical history. 2. No midline shift or mass effect. 3. No intraparenchymal hemorrhage. Jagjit Tapia MD Brain MRI 12/01/16 0000 Signed Impressions: Service Date/Time: Thursday, December 01, 2016 12:07 - CONCLUSION: Normal examination. Barrett Rodriguez MD Abdomen X-Ray 12/01/16 0000 Signed Impressions: Service Date/Time: Thursday, December 01, 2016 16:48 - CONCLUSION: No evidence of obstruction. Feeding tube tip in the distal stomach. Barrett Rodriguez MD Abdomen/Pelvis CT 11/29/16 3716 Signed Impressions: Service Date/Time: Wednesday, November 30, 2016 01:35 - CONCLUSION: 1. Markedly abnormal appearance of the distal esophagus consistent with the history of esophageal carcinoma. 2. Atherosclerotic calcifications of the aorta and iliac vessels. 3. Cirrhotic appearance to the liver with a mildly nodular contour present. Erik Simon MD CT Angiography 11/29/16 2349 Signed Impressions: Service Date/Time: Wednesday, November 30, 2016 01:35 - CONCLUSION: 1. No evidence for pulmonary embolism or pneumonia. 2. Abnormal appearance of the esophagus with and soft tissue consistent with the history of carcinoma. Erik Simon MD Objective Remarks GENERAL: Patient is 61 yo male, currently resting in bed on NRBM mask SKIN: Warm and dry. We'll perfused HEAD: Normocephalic. EYES: No scleral icterus. No injection or drainage. MOUTH: No bleeding. NECK: trachea midline. No JVD. No thrush CARDIOVASCULAR: Tachycardia, either. S1, S2 no S4. Without murmurs, clicks, rubs RESPIRATORY: Coarse breath sounds bilaterally. Diminished in bases. Mobile secretions numerous. GASTROINTESTINAL: Abdomen soft, non-tender, nondistended. MUSCULOSKELETAL: Trace bilateral lower extremity peripheral edema. Neuro: Arousable and follows commands. Moves all 4 extremities spontaneous. Procedures central line/ arterial line placement intubation cardiac catheterization port removal EUS with esophageal stent placement A/P Assessment and Plan NEURO/Psych: Acute metabolic encephalopathy-improving Possible alcohol withdrawal - completed Chronic oxycodone use - Encephalopathy most likely secondary to hypoxia -Completed therapy with Thiamine, MVI for EtOH withdrawal Acetaminophen for fever Oxycodone for pain management 5-10 every 4 hours when necessary holding tramadol /home medication RESP: Acute hypoxemic respiratory failure - multifactorial History COPD Anterior airway Tobacco abuse Bilateral pleural effusions - Emergently intubated and placed on mechanical ventilation 12/02/16, extubated successfully 12/03/16 - (Unable to visualize cords with direct laryngoscopy. With GlideScope #4 blade Grade 2 view, easy intubation) - DuoNeb every 6 hours scheduled and every 2 hours when necessary Titrate nasal cannula to maintain saturations greater than equal to 90%. Currently on simple mask at 5 L Incentive spirometry while awake CT chest revealed bilateral pleural effusions. Request IR thoracentesis today. CV: Atrial fibrillation with RVR NSTEMI Dynamic LVOT obstruction Coronary artery disease status post bare metal stent to left circumflex Krause 12/01 Cardiac catheterization 12/01 revealed EF around 60%. Left main normal. RCA normal. LAD 70% ostial. Bare stent left circumflex 70%. -Holding neuro symmetrical milligrams IV daily - Continue ASA 162 mg daily/Plavix 75 mg daily Currently on amiodarone drip at 0.5 mg/m, Cardizem drip at 20 mg an hour and metoprolol 25 mill grams every [address] Adler - cardiology. Due to underlying multiple comorbidities not a candidate for ablation at this time. Recommend medical management - 2-D echo no veg, EF 50-55% Holding home medications of losartan 100 mg, amlodipine 10 mg daily. On atorvastatin 40 by mouth daily for dyslipidemia GI: Invasive adenocarcinoma of the esophagus Liver cirrhosis - Dobhoff placed 12/02, cleared by speech for liquid diet. - GI following- has biopsy proven invasive adenoca of esophagus - Status post EUS/esophageal stent placement 12/25 - IV Protonix for twice a day and Carafate 1 g 4 times a day : Acute kidney failure/ATN resolved - Monitor renal function closely. Saxena catheter. -On Lasix 20 IV daily Follow BMP in a.m. ID: Septic shock-resolved MSSA bacteremia [id number] infection status post removal - Rapid clinical improvement after [id number]-Vzba was removed remains off all pressors - Catheter tip culture blood culture and wound culture also positive for MSSA - Continue Ancef 2 g IV every 8 hours through 01/15 along with rifampin 300 mg by mouth twice a day - Infectious disease consulted by primary. 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 Bell is following - Status post surgical resection for L parotid SCC at [facility] 10/01 --Hematology plans to give weekly Erbitux and XRT outpatient. Transfuse goal hemoglobin greater than 8 ENDO: Hypokalemia Hypo-magnesium Diabetes Hypothyroidism Chronic prednisone use - Electrolyte replacement per protocol - SSI every 6 hours with Levemir 6 units every 12 hours. Holding home medications of metformin 1000 mg twice a day and glipizide 20 mill grams by mouth twice a day - Continue thyroid supplementation with levothyroxine 50 mg daily/home medication . TSH 0.555 on admission Continue prednisone 5 mg by mouth daily PROPH: - Bilateral lower extremity SCDs. No pharmacological prophylaxis secondary to hemoptysis -Protonix 40 iv twice a day Overall impression: Continuing pulmonary issues hampering recovery. Appears to be aspirating as well. Freddy Bueno MD Dec 31, 2016 08:30
[2016-12-31] MEDS: PANTOPRAZOLE SODIUM 40 MG VIAL IV PUSH SCH ×2 (09:08→22:05)
[2016-12-31] MEDS: POLYETHYLENE GLYCOL 17 GM PKG PO SCH (09:08)
[2016-12-31] MEDS: RIFAMPIN 150 MG CAP PO SCH ×2 (09:09→20:04)
[2016-12-31] MEDS: MULTIVITAMIN TAB PO SCH (09:09)
[2016-12-31] MEDS: CLOPIDOGREL 75 MG TAB PO SCH (09:09)
[2016-12-31] MEDS: ASPIRIN EC 81 MG TABEC PO SCH (09:09)
[2016-12-31] MEDS: predniSONE 5 MG TAB PO SCH (09:09)
[2016-12-31] MEDS: THIAMINE HCL 100 MG TAB PO SCH (09:09)
[2016-12-31] MEDS: DOCUSATE SODIUM 50 MG/SENNA 8.6 MG TAB PO SCH ×2 (09:09→20:04)
[2016-12-31] MEDS: FUROSEMIDE 20 MG/2 ML VIAL IV PUSH SCH (09:23)
[2016-12-31] MEDS: RESP: ALBUTEROL 2.5 MG/IPRATROPIUM 0.5 MG NEB (PRN) INH (10:41)
[2016-12-31] MEDS: DILTIAZEM 125 MG/NS 100 ML IV SCH ×4 (11:08→18:05)
--- NOTE | 2016-12-31 11:19 | HHI.IDPN ---
Subjective Subjective Remarks Patient is a 61-year-old male, currently lethargic, and unable to give any history. History has been obtained from the chart. 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 It was reportedly malignant as well. He presented to the hospital complaining of generalized weakness, abdominal pain and progressive swallowing difficulty over the last 3 weeks. Evaluation in the emergency room revealed abnormal EKG, and he underwent cardiac catheterization. He had non-ST SD, and had revascularization with stent placement of his left circumflex artery. Patient is spiked to 103, and there were 2 blood cultures done yesterday that are now reported as growing staph aureus. Patient currently has a Saxena catheter. There is a lot of sediment in his urine, and his urine culture is also showing staph aureus. CT of the abdomen and pelvis did not show any abnormality except the soft tissue mass in the esophagus. He had atherosclerosis of his vasculature. There was also evidence of possible liver cirrhosis. Patient is being evaluated for chemotherapy and radiation, but he has not been started. He had an [id number] placement on November 12 on his right upper chest. Notes reviewed D/W RN C/O SOB On NRB Had R thoracentesis yesterday Fluid looks transudative Still in atrial fib rate 100-110 Antibiotics Ancef/rifampin - plan to complete 01/15 Lines Port - removed 12/02 PICC Past Medical History Hypertension Hyperlipidemia CAD Diabetes 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 and he had good margins Recurrent squamous cell carcinoma on the left face, with involvement of the parotid gland, status post surgery at [facility] Recently found to have esophageal mass Past Surgical History Appendectomy Liver Biopsy Resection of a squamous cell carcinoma on the left cheek in 2011 Extensive surgery on the left face and neck for recurrent squamous cell carcinoma Port Placement November 12, 2016 Allergies: Coded Allergies: penicillin G (Unverified Allergy, Mild, Hives, 12/30/16) Objective . Vital Signs Date Time Temp Pulse Resp B/P Pulse Ox O2 Delivery O2 Flow Rate FiO2 12/31/16 07:41 96 Partial Rebreather 10.00 12/31/16 06:00 100 12/31/16 05:04 92 Partial Non-Rebreather 10.00 12/31/16 05:04 96 Partial Rebreather 10.00 12/31/16 04:00 116 12/31/16 04:00 98.0 116 19 114/50 98 12/31/16 03:45 98.0 116 19 114/50 98 12/31/16 03:15 96 Non-Rebreather 15.00 12/31/16 02:00 117 12/31/16 00:43 20 12/31/16 00:00 98.5 112 20 120/46 95 12/31/16 00:00 112 12/30/16 22:00 108 12/30/16 20:00 92 Simple Mask 10.00 12/30/16 20:00 100 12/30/16 20:00 98.7 108 22 122/46 94 12/30/16 19:43 92 Simple Mask 7.00 12/30/16 18:00 108 12/30/16 16:00 98.2 124 21 124/64 94 12/30/16 16:00 124 12/30/16 13:45 97.1 104 19 124/52 96 12/30/16 13:30 97.1 104 19 128/58 96 12/30/16 13:15 97.1 104 19 122/52 96 12/30/16 12:00 98.1 112 14 116/50 100 12/30/16 12:00 104 12/30/16 12/30/16 12/31/16 15:00 23:00 07:00 Intake Total 982 ml 765 ml 837 ml Output Total 2900 ml 1950 ml 1100 ml Balance -1918 ml -1185 ml -263 ml Intake Oral 240 ml IV Total 742 ml 765 ml 837 ml Output Urine Total 2900 ml 750 ml 1100 ml Drainage Total 1200 ml # Bowel Movements 0 0 0 . Laboratory Tests Test 12/30/16 12/30/16 12/31/16 04:08 18:30 04:12 White Blood Count 10.4 TH/MM3 10.2 TH/MM3 12.4 TH/MM3 Red Blood Count 3.07 MIL/MM3 2.88 MIL/MM3 3.14 MIL/MM3 Hemoglobin 9.1 GM/DL 8.6 GM/DL 8.9 GM/DL Hematocrit 26.4 % 25.0 % 27.4 % Mean Corpuscular Volume 86.0 FL 86.9 FL 87.2 FL Mean Corpuscular Hemoglobin 29.5 PG 30.0 PG 28.5 PG Mean Corpuscular Hemoglobin 34.3 % 34.5 % 32.6 % Concent Red Cell Distribution Width 19.6 % 19.6 % 19.3 % Platelet Count 196 TH/MM3 190 TH/MM3 210 TH/MM3 Mean Platelet Volume 8.1 FL 8.3 FL 7.9 FL Laboratory Tests Test 12/30/16 12/31/16 04:08 04:12 Sodium Level 126 MEQ/L 127 MEQ/L Potassium Level 3.6 MEQ/L 3.9 MEQ/L Chloride Level 86 MEQ/L 85 MEQ/L Carbon Dioxide Level 35.1 MEQ/L 35.8 MEQ/L Anion Gap 5 MEQ/L 6 MEQ/L Blood Urea Nitrogen 10 MG/DL 12 MG/DL Creatinine 0.54 MG/DL 0.55 MG/DL Estimat Glomerular Filtration 156 ML/MIN 152 ML/MIN Rate Random Glucose 195 MG/DL 239 MG/DL Calcium Level 7.4 MG/DL 7.3 MG/DL Protein Corrected Calcium 8.1 MG/DL 8.1 MG/DL Phosphorus Level 2.1 MG/DL 2.7 MG/DL Magnesium Level 1.8 MG/DL 1.7 MG/DL Total Protein 5.9 GM/DL 5.7 GM/DL Microbiology Date/Time Procedure Status Source Growth 12/30/16 15:58 Gram Stain - Final Resulted Fluid Pleural Fluid 12/30/16 15:58 Body Fluid Culture Resulted Fluid Pleural Fluid Pending 12/30/16 15:58 Acid Fast Stain Received Fluid Pleural Fluid Pending 12/30/16 15:58 Mycobacterial Culture Received Fluid Pleural Fluid Pending 12/30/16 15:58 Fungal Smear Received Fluid Pleural Fluid Pending 12/30/16 15:58 Fungal Culture Received Fluid Pleural Fluid Pending Imaging Last 48 hours Impressions Chest X-Ray 12/26/16 0600 Signed Impressions: Service Date/Time: Monday, December 26, 2016 03:45 - CONCLUSION: Improving pulmonary edema and effusions, now mild/small. Unchanged moderate cardiomegaly. Washington Beasley MD GI Procedure 12/25/16 0000 Signed Impressions: Service Date/Time: December 19:33 - CONCLUSION: Spot film as above. Everett Pollock MD FACR Chest X-Ray 12/25/16 0000 Signed Impressions: Service Date/Time: December 20:28 - CONCLUSION: ET in good position; increasing congestive failure. Everett Pollock MD FACR Chest X-Ray 12/05/16 0600 Signed Impressions: Service Date/Time: Monday, December 05, 2016 03:30 - CONCLUSION: 1. Cardiomegaly and findings of vascular congestion without overt failure. There has been no significant change when compared to the prior exam. Bobby Matias MD Head CT 12/01/16 0000 Signed Impressions: Service Date/Time: Thursday, December 01, 2016 07:59 - CONCLUSION: 1. Questionable area of low attenuation left temporal lobe could be artifact versus less likely infarct. MRI may be warranted based on clinical history. 2. No midline shift or mass effect. 3. No intraparenchymal hemorrhage. Jagjit Tapia MD Brain MRI 12/01/16 0000 Signed Impressions: Service Date/Time: Thursday, December 01, 2016 12:07 - CONCLUSION: Normal examination. Barrett Rodriguez MD Abdomen X-Ray 12/01/16 0000 Signed Impressions: Service Date/Time: Thursday, December 01, 2016 16:48 - CONCLUSION: No evidence of obstruction. Feeding tube tip in the distal stomach. Barrett Rodriguez MD Abdomen/Pelvis CT 11/29/16 2356 Signed Impressions: Service Date/Time: Wednesday, November 30, 2016 01:35 - CONCLUSION: 1. Markedly abnormal appearance of the distal esophagus consistent with the history of esophageal carcinoma. 2. Atherosclerotic calcifications of the aorta and iliac vessels. 3. Cirrhotic appearance to the liver with a mildly nodular contour present. Erik Simon MD CT Angiography 11/29/16 2348 Signed Impressions: Service Date/Time: Wednesday, November 30, 2016 01:35 - CONCLUSION: 1. No evidence for pulmonary embolism or pneumonia. 2. Abnormal appearance of the esophagus with and soft tissue consistent with the history of carcinoma. Erik Simon MD Chest X-Ray 12/03/16 0600 Signed Impressions: Service Date/Time: Saturday, December 03, 2016 04:43 - CONCLUSION: Increasing consolidation in the left lower lung. Bilateral interstitial changes. Niko Wilcox MD Chest X-Ray 12/03/16 0000 Signed Impressions: Service Date/Time: Saturday, December 03, 2016 07:48 - CONCLUSION: 1. Persistent left retrocardiac density and slight interstitial prominence. Jagjit Tapia MD Chest X-Ray 12/02/16 0000 Signed Impressions: Service Date/Time: Friday, December 02, 2016 15:55 - CONCLUSION: Normal examination with endotracheal tube and central lines in good position. Barrett Rodriguez MD Chest X-Ray 12/02/16 0000 Signed Impressions: Service Date/Time: Friday, December 02, 2016 08:24 - CONCLUSION: Mild perihilar vascular congestion. Endotracheal tube is in good position Barrett Rodriguez MD Chest X-Ray 12/02/16 0000 Signed Impressions: Service Date/Time: Friday, December 02, 2016 06:53 - CONCLUSION: Underinflated examination with atelectasis at the lung bases. Given the technique, no acute abnormality or significant interval change is appreciated. Washington Marroquin MD Physical Exam GENERAL: Awake, alert, SOB at rest, on NRM mask SKIN: Warm and dry. No generalized rash EYES: Extraocular movements full and intact. [place]. No scleral icterus. No injection or drainage. EARS, NOSE AND THROAT: Nose without bleeding or purulent nasal discharge. No sinus tenderness. NECK: Trachea midline. Supple and not tender, no meningeal signs CARDIOVASCULAR: Irregular rate and rhythm, HR 129. There is a coarse systolic murmur at base of the heart. No rub. RESPIRATORY: Some rhonchi on R. INtact dressing R chest ABDOMEN: Soft, not distended, not tender. Bowel sounds present and normoactive. No organomegaly. EXTREMITIES: No clubbing, cyanosis. Has pitting BLE edema, weeping. No calf tenderness. Well perfused and warm. NEUROLOGICAL: Awake, non-focal PSYCHIATRIC: calm and cooperative LINE: Dry dressing on previous port site, healing. PICC site ok : Saxena in place Assessment & Plan Remarks IMPRESSION Sepsis, with shock has MSSA due to port infection, better - S/P removal port 12/02 - last (+) BC 12/05 Respiratory failure - due to fluid - has L base infiltrate, and GNR in sputum - S/P Rx 12/13 (+) UC with Staph aureus, due to current bacteremia Recurrent squamous cell CA Esophageal CA, S/P EUS and stent placement Lethargy and SOB due to sepsis, resolved - has acidosis, resolved Renal insufficiency, due to sepsis and shock, better Confusion - ?meds - resolved Atrial fib, rate still goes up and down New murmur - last echo with new "pseudo" outflow tract obstruction, ?this is source RECOMMENDATION Continue Rifampin, for synergy vs MSSA - follow LFT Continue IV Ancef He will need 6 weeks IV Abx - anticipated end date Jan 15 (6 weeks from last +BC) Labs weekly while on Abx: CBC, creatinine and LFT - will have HEPAS order and monitor - call if abnormal and with questions D/W Carola Dick MD Dec 31, 2016 11:19
[2016-12-31] MEDS: LORazepam 2 MG/ML VIAL IV PUSH PRN (14:16)
--- NOTE | 2016-12-31 16:37 | HHI.HCPN ---
Reason for visit a. To assist with evaluation and management of symptoms including: Pain, shortness of breath and debility. b. To assist medical decision maker(s) with: better understanding of current medical conditions; weighing benefits/burdens of medical treatment options; making medical treatment decisions. . Subjective/Interval History Mr. 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 Clinical course complicated by NSTEMI, patient underwent PCI with bare metal stents on 11/30/16. Clinical course further complicated by persistent fever, MSSA bacteremia, worsening sepsis, A. fib with RVR and persistent respiratory failure. Patient underwent EGD with esophageal stent placement on 12/25/16, complicated by significant bleeding from distal esophagus, in addition to persistent hypotension requiring vasopressors. Palliative care was consulted for further clarifications of goals of care. Patient's prognosis has been previously discussed with Ann Marie Duran from oncology and prognosis is felt to be positive for curative treatment with chemotherapy (Erubitux) and radiation as outpatient for the adenocarcinoma. 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 Pathology showed positive margins and he is pending, concurrent chemotherapy and radiation to achieve local control of that disease. However, patient remains in ICU with persistent respiratory failure. Patient seen in ICU, he was worsening bed in moderate distress secondary to increased work of breathing. Patient endorsing shortness of breath at rest. Currently on nonrebreather mask at 11L. Case discussed with nurse Foster, respiratory therapy was called at bedside and patient was given Ativan 1mg for anxiety. Patient afebrile, tachycardic with heart rate in the low 110s, remains on Cardizem and amiodarone drip. Chest x-ray today revealed an increasing consolidative infiltrates in the right lower lung, persistent infiltrates in the right upper and persistent dense consolidation of the left lung. CTA negative for PE, showing pericardial effusion in both lungs. Laboratory workup today revealing WBC 12.4, stable hemoglobin at 8.9, platelet count 210. Goals of care conversation with patient. Shared concerns of his respiratory status and prolonged acute hospitalization, currently on day 31. Patient reports feeling very tired, ill. Patient verbalize having his own concerns regarding his ability to recuperate from this acute process. Discussed that he is still at high risk for further complications, continue decline and given his respiratory condition, multiple ongoing chronic comorbidities and profound physical deconditioning. Patient wishing to continue with aggressive management to include full code/intubation and mechanical ventilation. Discussed risks, benefits and limitations of CPR given his condition. Patient verbalized wishing to be reintubated if medically necessary; however, he verbalized being against tracheostomy if unable to medically extubate. Patient verbalize being realistic about his condition remains hopeful that he will improve and discharge home soon. Patient with plans to continue radiation as outpatient for adenocarcinoma. Telephone call to patient's girlfriend Luly Plunkett, left message in voicemail. Ongoing emotional support and active listening provided. . Family/friend interactions Family at bedside. Telephone call to patient's girlfriend Luly Velez, left message in voicemail. . Advance Directives Living Will: Never completed Health Care Surrogate: Copy in medical record Durable Power of Code Inspector: Never completed Advance Directive Specifics Date completed: 12/25/16. . Health Care Surrogate(s): Patient designated his daughter Mena La AND girlfriend Luly Bautista as co- healthcare surrogate decision makers. . Documented care wishes: No living will. . Significant change in goals: Full code. Continue aggressive management. . Objective Vital Signs Date Time Temp Pulse Resp B/P Pulse Ox O2 Delivery O2 Flow Rate FiO2 12/31/16 14:00 83 12/31/16 12:00 118 12/31/16 12:00 98.3 118 21 125/79 94 12/31/16 10:00 113 12/31/16 08:30 99 Partial Non-Rebreather 10.00 12/31/16 08:00 104 12/31/16 08:00 98.4 104 15 113/71 99 12/31/16 07:41 96 Partial Rebreather 10.00 12/31/16 06:00 100 12/31/16 05:04 92 Partial Non-Rebreather 10.00 12/31/16 05:04 96 Partial Rebreather 10.00 12/31/16 04:00 116 12/31/16 04:00 98.0 116 19 114/50 98 12/31/16 03:45 98.0 116 19 114/50 98 12/31/16 03:15 96 Non-Rebreather 15.00 12/31/16 02:00 117 12/31/16 00:43 20 12/31/16 00:00 98.5 112 20 120/46 95 12/31/16 00:00 112 12/30/16 22:00 108 12/30/16 20:00 92 Simple Mask 10.00 12/30/16 20:00 100 12/30/16 20:00 98.7 108 22 122/46 94 12/30/16 19:43 92 Simple Mask 7.00 12/30/16 18:00 108 12/30/16 16:00 98.2 124 21 124/64 94 12/30/16 16:00 124 Intake & Output 12/31/16 12/31/16 07:00 19:00 Intake Total 1602 ml 925 ml Output Total 3050 ml 2750 ml Balance -1448 ml -1825 ml Intake Oral 480 ml IV Total 1602 ml 445 ml Output Urine Total 1850 ml 2750 ml Drainage Total 1200 ml # Bowel Movements 0 0 Physical Exam CONSTITUTIONAL/GENERAL: This is an adequately nourished patient, in moderate distress secondary to increased work of breathing. The chest. TUBES/LINES/DRAINS: PICC line, nonrebreather mask, SCDs, Saxena catheter. SKIN: No jaundice, rashes, or lesions. Scattered ecchymosis to upper extremities. Skin temperature appropriate. Not diaphoretic. HEAD: Atraumatic. Normocephalic. EYES: Pupils equal and round and reactive. Extraocular motions intact. ENT: Hearing grossly normal. Nose without bleeding or purulent drainage. Left cheek with postsurgical changes, healed. Moist oral mucosa, dry lips. NECK: Trachea midline. Supple, nontender. CARDIOVASCULAR: Tachycardic with heart rate in the low 110s, systolic murmur. Edema to bilateral upper and lower extremities. RESPIRATORY/CHEST: Symmetric, increased work of breathing. Using accessory muscles. O2 via nonrebreather mask. Coarse breath sounds bilaterally. GASTROINTESTINAL: Abdomen soft, non-tender, nondistended. Bowel sounds present. GENITOURINARY: Without palpable bladder distension. Saxena catheter intact to bedside drainage. MUSCULOSKELETAL: Moves all extremities independently with purpose. NEUROLOGICAL: Awake, tired looking. Verbal, able to communicate needs. Follows commands. Moves all extremities. PSYCHIATRIC: Anxious. . Diagnostic Tests Laboratory Laboratory Tests Test 12/28/16 12/29/16 12/29/16 12/30/16 19:38 05:12 17:19 04:08 Blood Gas Puncture Site ART LINE ART LINE Blood Gas Patient Temperature 98.6 98.6 Blood Gas HCO3 28 mmol/L 31 mmol/L (22-26) (22-26) Blood Gas Base Excess 3.8 mmol/L 6.7 mmol/L (-2-2) (-2-2) Blood Gas Oxygen Saturation 96 % (90-100) 94 % (90-100) Arterial Blood pH 7.45 7.44 (7.380-7.420) (7.380-7.420) Arterial Blood Partial 41 mmHg (38-42) 47 mmHg (38-42) Pressure CO2 Arterial Blood Partial 97 mmHg 84 mmHg Pressure O2 (61-120) (61-120) Arterial Blood Oxygen Content 12.2 Vol % 19.5 Vol % (12.0-20.0) (12.0-20.0) Arterial Blood 2.0 % (0-4) 1.8 % (0-4) Carboxyhemoglobin Arterial Blood Methemoglobin 0.6 % (0-2) 0.7 % (0-2) Blood Gas Hemoglobin 9.0 G/DL 14.8 G/DL (12.0-16.0) (12.0-16.0) Oxygen Delivery Device SIMPLE MASK SIMPLE MASK Blood Gas Liter Flow 9 L/M 6 L/M White Blood Count 8.5 TH/MM3 10.4 TH/MM3 (4.0-11.0) (4.0-11.0) Red Blood Count 2.94 MIL/MM3 3.07 MIL/MM3 (4.50-5.90) (4.50-5.90) Hemoglobin 8.6 GM/DL 9.1 GM/DL (13.0-17.0) (13.0-17.0) Hematocrit 25.7 % 26.4 % (39.0-51.0) (39.0-51.0) Mean Corpuscular Volume 87.5 FL 86.0 FL (80.0-100.0) (80.0-100.0) Mean Corpuscular Hemoglobin 29.2 PG 29.5 PG (27.0-34.0) (27.0-34.0) Mean Corpuscular Hemoglobin 33.4 % 34.3 % Concent (32.0-36.0) (32.0-36.0) Red Cell Distribution Width 20.1 % 19.6 % (11.6-17.2) (11.6-17.2) Platelet Count 162 TH/MM3 196 TH/MM3 (150-450) (150-450) Mean Platelet Volume 7.9 FL 8.1 FL (7.0-11.0) (7.0-11.0) Sodium Level 132 MEQ/L 126 MEQ/L (136-145) (136-145) Potassium Level 3.5 MEQ/L 3.6 MEQ/L (3.5-5.1) (3.5-5.1) Chloride Level 93 MEQ/L 86 MEQ/L (98-107) (98-107) Carbon Dioxide Level 31.0 MEQ/L 35.1 MEQ/L (21.0-32.0) (21.0-32.0) Anion Gap 8 MEQ/L (5-15) 5 MEQ/L (5-15) Blood Urea Nitrogen 9 MG/DL (7-18) 10 MG/DL (7-18) Creatinine 0.53 MG/DL 0.54 MG/DL (0.60-1.30) (0.60-1.30) Estimat Glomerular Filtration 159 ML/MIN 156 ML/MIN Rate (>89) (>89) Random Glucose 181 MG/DL 195 MG/DL (74-106) (74-106) Calcium Level 7.4 MG/DL 7.4 MG/DL (8.5-10.1) (8.5-10.1) Protein Corrected Calcium 8.1 MG/DL 8.1 MG/DL (8.5-10.1) (8.5-10.1) Total Protein 5.9 GM/DL 5.9 GM/DL (6.4-8.2) (6.4-8.2) Phosphorus Level 2.1 MG/DL (2.5-4.9) Magnesium Level 1.8 MG/DL (1.5-2.5) Test 12/30/16 12/30/16 12/30/16 12/31/16 15:00 15:58 18:30 00:12 Prothrombin Time 13.0 SEC (9.8-11.6) Prothromb Time International 1.2 RATIO Ratio Activated Partial 28.6 SEC Thromboplast Time (24.3-30.1) Pleural Fluid pH 8.0 Pleural Fluid WBC 715 /MM3 (0-10) Pleural Fluid RBC 22904 /MM3 (0-0) Pleural Fluid Neutrophils 87 % Pleural Fluid Lymphocytes 11 % Pleural Fluid Histiocytes 2 % Pleural Fluid Total Protein 1.5 GM/DL Pleural Fluid LDH 128 U/L Pleural Fluid Glucose 248 MG/DL White Blood Count 10.2 TH/MM3 (4.0-11.0) Red Blood Count 2.88 MIL/MM3 (4.50-5.90) Hemoglobin 8.6 GM/DL (13.0-17.0) Hematocrit 25.0 % (39.0-51.0) Mean Corpuscular Volume 86.9 FL (80.0-100.0) Mean Corpuscular Hemoglobin 30.0 PG (27.0-34.0) Mean Corpuscular Hemoglobin 34.5 % Concent (32.0-36.0) Red Cell Distribution Width 19.6 % (11.6-17.2) Platelet Count 190 TH/MM3 (150-450) Mean Platelet Volume 8.3 FL (7.0-11.0) Blood Type O NEGATIVE Antibody Screen NEGATIVE Crossmatch Leukocyte-Reduced Red Blood Cells Blood Bank Comment Test 12/31/16 12/31/16 04:10 04:12 Blood Gas Puncture Site LT BRACHIAL Blood Gas Patient Temperature 98.6 Blood Gas HCO3 36 mmol/L (22-26) Blood Gas Base Excess 11.1 mmol/L (-2-2) Blood Gas Oxygen Saturation 97 % (90-100) Arterial Blood pH 7.46 (7.380-7.420) Arterial Blood Partial 51 mmHg (38-42) Pressure CO2 Arterial Blood Partial 117 mmHg Pressure O2 (61-120) Arterial Blood Oxygen Content 12.6 Vol % (12.0-20.0) Arterial Blood 1.9 % (0-4) Carboxyhemoglobin Arterial Blood Methemoglobin 0.7 % (0-2) Blood Gas Hemoglobin 9.2 G/DL (12.0-16.0) Oxygen Delivery Device NRB Blood Gas Liter Flow 15 L/M Blood Gas Inspired Oxygen 100 % White Blood Count 12.4 TH/MM3 (4.0-11.0) Red Blood Count 3.14 MIL/MM3 (4.50-5.90) Hemoglobin 8.9 GM/DL (13.0-17.0) Hematocrit 27.4 % (39.0-51.0) Mean Corpuscular Volume 87.2 FL (80.0-100.0) Mean Corpuscular Hemoglobin 28.5 PG (27.0-34.0) Mean Corpuscular Hemoglobin 32.6 % Concent (32.0-36.0) Red Cell Distribution Width 19.3 % (11.6-17.2) Platelet Count 210 TH/MM3 (150-450) Mean Platelet Volume 7.9 FL (7.0-11.0) Sodium Level 127 MEQ/L (136-145) Potassium Level 3.9 MEQ/L (3.5-5.1) Chloride Level 85 MEQ/L (98-107) Carbon Dioxide Level 35.8 MEQ/L (21.0-32.0) Anion Gap 6 MEQ/L (5-15) Blood Urea Nitrogen 12 MG/DL (7-18) Creatinine 0.55 MG/DL (0.60-1.30) Estimat Glomerular Filtration 152 ML/MIN Rate (>89) Random Glucose 239 MG/DL (74-106) Calcium Level 7.3 MG/DL (8.5-10.1) Protein Corrected Calcium 8.1 MG/DL (8.5-10.1) Phosphorus Level 2.7 MG/DL (2.5-4.9) Magnesium Level 1.7 MG/DL (1.5-2.5) Total Protein 5.7 GM/DL (6.4-8.2) Result Diagram: 12/31/16 0412 12/31/16 0412 Microbiology Microbiology Date/Time Procedure Status Source Growth 12/30/16 15:58 Gram Stain - Final Resulted Fluid Pleural Fluid 12/30/16 15:58 Body Fluid Culture - Preliminary Resulted Fluid Pleural Fluid NO GROWTH IN 24 HOURS. 12/30/16 15:58 Acid Fast Stain Received Fluid Pleural Fluid Pending 12/30/16 15:58 Mycobacterial Culture Received Fluid Pleural Fluid Pending 12/30/16 15:58 Fungal Smear Received Fluid Pleural Fluid Pending 12/30/16 15:58 Fungal Culture Received Fluid Pleural Fluid Pending Procedures 11/30/16 - he underwent left and right heart catheterization with the following findings: RCA-dominant, 10% lesion mid. PDA-patent with TALI III flow. LM-no significant obstructive lesions. LAD-transapical, no significant obstructive lesions. Diagonal-70% lesion ostial, small vessel. Left circumflex-proximal clot thrombus, TALI II flow with 2 OM branches, both patent. Procedure-PCI/BMS to proximal left circumflex in setting of NSTEMI. No left ventriculogram done due to concern for renal function. EF by echocardiogram 12/01/16 was 50-55%, mild concentric left ventricular hypertrophy, normal right ventricular size and function, no significant valvular disease, pulmonary hypertension or effusion noted. This was reexamined 87 due to concern for possible pericardial infusion. Findings included dynamic "pseudo-" outflow tract obstructive physiology due to concentric hypertrophy and hyperdynamic systolic function with mild mitral regurgitation, mild aortic valve regurgitation and small to moderate pericardial effusion, not hemodynamically significant. 12/02/16-left axillary arterial line placement. 12/02/16-intubation. 12/02/16 left subclavian central line placement. 12/02/1639-Wruqfw-[id number]-Port removal secondary to sepsis. 12/25/16-EUS followed by an EGD with esophageal stent placement 12/25/16-intubation 12/25/16-arterial line placement 12/26/16 -extubation . Assessment and Plan Disease Oriented Problem List: (1) Respiratory failure (2) Edema (3) Esophageal carcinoma (4) SCC (squamous cell carcinoma) (5) NSTEMI (non-ST elevated myocardial infarction) (6) Atrial fibrillation with RVR Symptom Scale: (1) Shortness of breath 0-10 Scale: Unable to quantify Comment: Persistent respiratory failure, currently on nonrebreather mask at 11 L. (2) Pain 0-10 Scale: Unable to quantify (3) Debility 0-10 Scale: Unable to quantify Comment: Progressive, secondary to acute illness and prolonged hospitalization. (4) Edema 0-10 Scale: Unable to quantify Pertinent Non-Medical Issues Psychosocial:This is a 61-year-old male that was born in [place], [place] and moved to [place] when he was 15. He never attended high school after he moved to [place] nor obtained his GED. 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 He was never in the . Spiritual: No spiritual affiliation. Legal: Has designated his daughter Ben La and his girlfriend Luly Bautista as joint healthcare surrogates. Ethical issues impacting care: None noted. . Important Contacts Daughter-Ben La Significant other-Luly Bautista , Mother-Orly Sky (Ama[place]), [place], [place] . Prognosis Mr. 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 Clinical course complicated by NSTEMI, patient underwent PCI with bare metal stents on 11/30/16. Clinical course further complicated by persistent fever, MSSA bacteremia, worsening sepsis, A. fib with RVR and persistent respiratory failure. Patient underwent EGD with esophageal stent placement on 12/25/16, complicated by significant bleeding from distal esophagus, in addition to persistent respiratory failure. Patient at a very high risk for further complications, continue decline and . . Code Status: Full Code Plan * CODE STATUS: Full code. Discussed risks, benefits and limitations of CPR, intubation and mechanical ventilation given patient's condition. Patient electing to remain full code. * HEALTHCARE DECISION-MAKING: Patient participating in medical decision-making. Patient with a good understanding of his clinical condition, able to weigh burdens and benefits of medical options. He has designated his daughter Mena La AND girlfriend Luly Plunkett as co-healthcare surrogate decision makers. * GOALS OF CARE: Patient electing to continue aggressive management to include full code. He further verbalized that if he needs to be reintubated, he would be in agreement with that. However, further tells me that he would NOT agree with tracheostomy if he is unable to be medically extubate. * SYMPTOMS: = Shortness of breath, secondary to persistent respiratory failure. Increased oxygen requirements, currently on nonrebreather mask at 11L. High risk for intubation/mechanical ventilation. Oxycodone 15 mg q4h PRN and Ativan 1mg q4h PRN available as needed. = Pain, multifactorial. Likely secondary to multiple procedures, prolonged hospitalization, bedrest. Oxycodone 15 mg every 4 hours when necessary available. = Debility, secondary to acute illness and prolonged hospitalization. PT following, however, treatment on hold secondary to changes in clinical status. * Case discussed with bedside RN Kristin. * Palliative care contact information has been provided to patient. * Palliative care will continue to follow-up as needed for further clarifications of goals of care as patient's clinical course continues to evolve. . Time Spent Total Floor Time (mins): 40 (Total time to include review and summarization of available medical records, physical exam, goals of care conversation with patient, and case discussion with bedside RN Kristin. ) >50% Counseling/Coord of Care: Yes Attestation To help prompt me to consider important information that might be impacting today's encounter and assessment, information from prior notes written by myself or my colleagues may have been "brought forward" into today's note. My signature on this note, however, is an attestation that I personally performed the exam, history, and/or decision-making noted today, and, unless otherwise indicated, the interactions with patient, family, and staff as well as the review of records all occurred today. I also attest that the listed assessment and stated plan reflect my best clinical judgment today based on the combination of historical information, prior notes, and today's exam/ interactions. When time spent is documented, it refers only to time spent today by the signer, or if indicated, combined time spent today by collaborating physician/nurse practitioner. Ida Alston Dec 31, 2016 16:37
--- NOTE | 2016-12-31 17:17 | PD.ONC.PN ---
Subjective Subjective Remarks Afebrile overnight Patient still with significant shortness of breath Patient still in A. fib, rate controlled Objective Data Date Time Temp Pulse Resp B/P Pulse Ox O2 Delivery O2 Flow Rate FiO2 12/31/16 16:00 98.5 84 20 126/48 93 12/31/16 16:00 84 12/31/16 14:00 83 12/31/16 12:00 118 12/31/16 12:00 98.3 118 21 125/79 94 12/31/16 10:00 113 12/31/16 08:30 99 Partial Non-Rebreather 10.00 12/31/16 08:00 104 12/31/16 08:00 98.4 104 15 113/71 99 12/31/16 07:41 96 Partial Rebreather 10.00 12/31/16 07:07 97 12/31/16 06:00 100 12/31/16 05:04 92 Partial Non-Rebreather 10.00 12/31/16 05:04 96 Partial Rebreather 10.00 12/31/16 04:00 116 12/31/16 04:00 98.0 116 19 114/50 98 12/31/16 03:45 98.0 116 19 114/50 98 12/31/16 03:15 96 Non-Rebreather 15.00 12/31/16 02:00 117 12/31/16 00:43 20 12/31/16 00:00 98.5 112 20 120/46 95 12/31/16 00:00 112 12/30/16 22:00 108 12/30/16 20:00 92 Simple Mask 10.00 12/30/16 20:00 100 12/30/16 20:00 98.7 108 22 122/46 94 12/30/16 19:43 92 Simple Mask 7.00 12/30/16 18:00 108 12/31/16 12/31/16 12/31/16 07:00 15:00 23:00 Intake Total 837 ml 925 ml Output Total 1100 ml 2750 ml Balance -263 ml -1825 ml Result Diagram: 12/31/16 0412 12/31/16 0412 Laboratory Results Laboratory Tests Test 12/30/16 12/31/16 12/31/16 12/31/16 18:30 00:12 04:10 04:12 White Blood Count 10.2 TH/MM3 12.4 TH/MM3 Red Blood Count 2.88 MIL/MM3 3.14 MIL/MM3 Hemoglobin 8.6 GM/DL 8.9 GM/DL Hematocrit 25.0 % 27.4 % Mean Corpuscular Volume 86.9 FL 87.2 FL Mean Corpuscular Hemoglobin 30.0 PG 28.5 PG Mean Corpuscular Hemoglobin 34.5 % 32.6 % Concent Red Cell Distribution Width 19.6 % 19.3 % Platelet Count 190 TH/MM3 210 TH/MM3 Mean Platelet Volume 8.3 FL 7.9 FL Blood Type O NEGATIVE Antibody Screen NEGATIVE Crossmatch Leukocyte-Reduced Red Blood Cells Blood Bank Comment Blood Gas Puncture Site LT BRACHIAL Blood Gas Patient Temperature 98.6 Blood Gas HCO3 36 mmol/L Blood Gas Base Excess 11.1 mmol/L Blood Gas Oxygen Saturation 97 % Arterial Blood pH 7.46 Arterial Blood Partial 51 mmHg Pressure CO2 Arterial Blood Partial 117 mmHg Pressure O2 Arterial Blood Oxygen Content 12.6 Vol % Arterial Blood 1.9 % Carboxyhemoglobin Arterial Blood Methemoglobin 0.7 % Blood Gas Hemoglobin 9.2 G/DL Oxygen Delivery Device NRB Blood Gas Liter Flow 15 L/M Blood Gas Inspired Oxygen 100 % Sodium Level 127 MEQ/L Potassium Level 3.9 MEQ/L Chloride Level 85 MEQ/L Carbon Dioxide Level 35.8 MEQ/L Anion Gap 6 MEQ/L Blood Urea Nitrogen 12 MG/DL Creatinine 0.55 MG/DL Estimat Glomerular Filtration 152 ML/MIN Rate Random Glucose 239 MG/DL Calcium Level 7.3 MG/DL Protein Corrected Calcium 8.1 MG/DL Phosphorus Level 2.7 MG/DL Magnesium Level 1.7 MG/DL Total Protein 5.7 GM/DL Culture Results Microbiology Date/Time Procedure Status Source Growth 12/30/16 15:58 Gram Stain - Final Resulted Fluid Pleural Fluid 12/30/16 15:58 Body Fluid Culture - Preliminary Resulted Fluid Pleural Fluid NO GROWTH IN 24 HOURS. 12/30/16 15:58 Acid Fast Stain Received Fluid Pleural Fluid Pending 12/30/16 15:58 Mycobacterial Culture Received Fluid Pleural Fluid Pending 12/30/16 15:58 Fungal Smear Received Fluid Pleural Fluid Pending 12/30/16 15:58 Fungal Culture Received Fluid Pleural Fluid Pending Imaging Studies Last 24 hours Impressions Chest X-Ray 12/31/16 0600 Signed Impressions: Service Date/Time: Saturday, December 31, 2016 03:30 - CONCLUSION: Increasing consolidative infiltrates in the right lower lung, persistence patchy infiltrates in the right upper lung and persistent dense consolidation of the left lower lung. Kulwant Gupta MD CT Angiography 12/31/16 0000 Signed Impressions: Service Date/Time: Saturday, December 31, 2016 01:00 - CONCLUSION: 1. Study is negative for pulmonary embolism. 2. Pericardial effusion, diffuse patchy consolidation in both lungs, collapse left lower lobe, bilateral pleural effusions, esophageal stent, similar to yesterday's CT thorax. Kulwant Gupta MD Administered Medications Medications (Trade) Dose Ordered Sig/Geovanny Route PRN Reason Start Time Stop Time Status Last Admin Dose Admin Sodium Chloride (NS Flush) 2 ml UNSCH PRN IV FLUSH FLUSH AFTER USING IV ACCESS 11/30/16 02:45 12/24/16 09:59 Sodium Chloride (NS Flush) 2 ml BID IV FLUSH 11/30/16 09:00 12/30/16 21:00 Oxycodone HCl (Roxicodone) 5 mg Q4H PRN PO PAIN SCALE 3 TO 5 11/30/16 02:45 12/30/16 23:43 Senna/Docusate Sodium (Rere-Colace) 1 tab BID PO 11/30/16 09:00 12/31/16 09:09 Acetaminophen (Tylenol) 325 mg Q4H PRN PO PAIN SCALE 1 TO 2 11/30/16 13:45 12/13/16 17:13 Clopidogrel Bisulfate (Plavix) 75 mg DAILY PO 12/01/16 09:00 Hold 12/25/16 08:06 Ondansetron HCl (Zofran Inj) 4 mg Q4H PRN IV NAUSEA 11/30/16 13:45 12/24/16 22:41 Sodium Chloride (NS Flush) 5 ml Q21D IV FLUSH 11/30/16 18:00 12/21/16 17:19 Heparin Sodium (Porcine) (Heparin Central Flush) 500 units Q21D IV FLUSH 11/30/16 18:00 11/30/16 18:04 Acetaminophen (Tylenol 650 Mg/ 20 ml Liq) 650 mg Q6H PRN PO FEVER 12/01/16 17:30 12/02/16 01:07 Polyethylene Glycol (Miralax) 17 gm DAILY PO 12/04/16 09:00 12/31/16 09:08 Thiamine HCl (Vitamin B1) 100 mg DAILY PO 12/05/16 09:00 12/31/16 09:09 Multivitamins (Theragran) 1 tab DAILY PO 12/05/16 09:00 12/31/16 09:09 Folic Acid (Folate) 1 mg DAILY PO 12/05/16 09:00 Hold 12/25/16 08:07 Rifampin 300 mg 300 mg Q12HR PO 12/06/16 09:15 01/15/17 23:00 12/31/16 09:09 Cefazolin Sodium/ Dextrose (Ancef 2 Gm Premix) 50 ml @ 100 mls/hr Q8H IV 12/06/16 10:00 01/15/17 23:00 12/31/16 09:09 Lorazepam (Ativan Inj) 1 mg Q4H PRN IV PUSH ANXIETY AND/OR AGITATION 12/09/16 15:15 12/31/16 14:16 Atorvastatin Calcium (Lipitor) 40 mg HS PO 12/12/16 21:00 Hold 12/24/16 21:00 Sodium Chloride (NS Flush) See Protocol DAILY IV FLUSH 12/13/16 09:00 12/27/16 08:04 Heparin Sodium (Porcine) (Heparin Central Flush) See Protocol DAILY IV FLUSH 12/13/16 09:00 12/27/16 08:05 Sodium Chloride (NS Flush) UNSCH PRN IV FLUSH SEE PROTOCOL TABLE 12/12/16 17:00 12/19/16 01:59 Lorazepam (Ativan) 0.5 mg DAILY PRN PO ANXIETY 12/18/16 15:45 Hold 12/19/16 08:29 Diltiazem HCl (Cardizem) 90 mg Q6H PO 12/18/16 23:00 Hold 12/25/16 12:14 Oxycodone HCl (Roxicodone) 15 mg Q4H PRN PO PAIN 6-10 12/21/16 11:00 12/31/16 11:55 Digoxin (Lanoxin) 0.25 mg DAILY PO 12/22/16 09:00 Hold 12/25/16 08:06 Sucralfate (Carafate Liq) 1 gm ACHS PO 12/22/16 11:00 12/31/16 16:49 Metoprolol Tartrate (Lopressor Inj) 5 mg Q1HR PRN IV PUSH RAPID HEART RATE 12/22/16 09:45 12/30/16 10:37 Pantoprazole Sodium (Protonix Inj) 40 mg Q12H IV PUSH 12/22/16 10:00 12/31/16 09:08 Aspirin (Ecotrin Ec) 81 mg DAILY PO 12/23/16 09:00 Hold 12/25/16 08:06 Metoprolol Tartrate (Lopressor) 25 mg Q6HR PO 12/22/16 13:00 12/31/16 11:54 Furosemide 20 mg 20 mg DAILY IV PUSH 12/24/16 09:15 12/31/16 09:23 Propofol (Diprivan 1000 Mg/100ml Inj) 100 ml @ 0 mls/hr TITRATE IV 12/25/16 20:30 12/26/16 06:08 Magnesium Oxide 800 mg 800 mg UNSCH PRN PO For Magnesium 1.2 - 1.6 mg/dL 12/25/16 21:00 12/27/16 06:46 Potassium Chloride 100 ml @ 50 mls/hr Q2H PRN IV For Potassium 3.3 - 3.5 mEq/L 12/25/16 21:00 12/29/16 09:33 Sodium Phosphate/ Sodium Chloride (Sodium Phosphate Inj/NS 250 ml Inj) 250 ml @ 42 mls/hr UNSCH PRN IV For Phosphorus < 2.5 mg/dL 12/25/16 21:00 12/30/16 06:49 Chlorhexidine Gluconate (Peridex 0.12% Liq) 15 ml BID@08,20 MT 12/26/16 08:00 12/31/16 08:15 Insulin Human Regular 1 1 Q6HR SQ 12/26/16 00:00 12/31/16 12:00 Amiodarone HCl/ Dextrose (Cordarone Inj/ D5W ([place]) Inj) 250 ml @ 0 mls/hr CONTINUOUS IV 12/25/16 21:15 12/30/16 16:36 Clopidogrel Bisulfate (Plavix) 75 mg DAILY PO 12/29/16 09:00 12/31/16 09:09 Aspirin (Ecotrin Ec) 162 mg DAILY PO 12/29/16 09:00 12/31/16 09:09 Prednisone (Deltasone) 5 mg DAILY PO 12/29/16 09:00 12/31/16 09:09 Levothyroxine Sodium (Synthroid) 50 mcg DAILY@06 PO 12/30/16 06:00 12/31/16 05:16 Insulin Detemir 10 units 10 units Q12HR SQ 12/30/16 21:00 12/31/16 09:23 Diltiazem HCl/ Sodium Chloride (Cardizem Inj/NS Inj) 125 ml @ 0 mls/hr TITRATE IV 12/31/16 01:45 12/31/16 11:08 Objective Remarks GENERAL: Chronically ill-appearing male upright in bed. He is on a partial nonrebreather and appears to be short of breath at rest. SKIN: Warm and dry. HEAD: Normocephalic. EYES: No injection or drainage. NECK: Supple, trachea midline. CARDIOVASCULAR: Irregular rhythm RESPIRATORY: Scattered rhonchi GASTROINTESTINAL: Abdomen soft, non-tender, nondistended. EXTREMITIES: No cyanosis. +anasarca NEUROLOGICAL: Normal speech. Moving all extremities. Assessment/Plan Problem List: (1) Esophageal adenocarcinoma Status: Acute Plan: --EUS with esophageal stent placement on 12/25 --++hemoptysis --we plan to give weekly Erbitux and XRT outpatient. --patient had OP EGD with biopsy, pathology showed adenocarcinoma. --EGD/Colonoscopy, 11/20/16--showed long stricture in the mid esophagus and distal esophagus, multiple biopsies were performed Pathology revealed invasive adenocarcinoma- distal esophagus --XRT simulation done 12/19. (2) SCC (squamous cell carcinoma) Status: Acute Plan: --has a head and neck, lung malignancy which was locally advanced. --received definitive treatment with surgery. Post surgery he had positive margins and some poor risk features and he was about to get concurrent chemotherapy and radiation and adjuvantly to achieve local control of the disease --PET scan to stage his disease prior to treatment showed an esophageal mass (3) Normocytic anemia Status: Acute Plan: --hgb stable but now patient has worsening hemoptysis/hematemesis, likely d/t esophageal mass --transfuse packed red blood cells if his hemoglobin drops below 8. --s/p iron infusion (4) NSTEMI (non-ST elevated myocardial infarction) Status: Acute Plan: --had elevated troponin and ST-segment changes consistent with acute MD. --s/p cardiac cath, stent placement to proximal left circumflex --cardiology following --on plavix and ASA (5) Afib Status: Acute Plan: --cardiology following. --on Cardizem and Amiodarone --on Plavix and ASA (6) Sepsis Status: Resolved Plan: BC, 7. no growth BC, 12/07 no growth --BC, 12/05 +, S. Aureus --had removal of port, + S. 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 Also with a new diagnosis of early stage gastric cancer Plan 1. CTA negative for pulmonary embolism 2. His heart rate is now controlled. 3. We'll transfuse to keep hemoglobin greater than 8.5 given his cardiopulmonary needs. Attending Statement The exam, history, and the medical decision-making described in the above note were completed with the assistance of the mid-level provider. I reviewed and agree with the findings presented. I attest that I had a [id number] encounter with the patient on the same day, and personally performed and documented my assessment and findings in the medical record. Problem Qualifiers (1) Afib: Qualified Code: I48.91 - Atrial fibrillation, unspecified type (2) Sepsis: Qualified Code: A41.9 - Sepsis, due to unspecified organism Shey Flores Dec 31, 2016 17:16 Brant Bell MD Jan 01, 2017 00:02
[2016-12-31] MEDS ORDERED: DEXMEDETOMIDINE INJ 200 MCG in SODIUM CHLORIDE 0.9% INJ 50 ML IV SCH (21:15)
[2016-12-31] MEDS ORDERED: DEXMEDETOMIDINE INJ 1,000 MCG in SODIUM CHLOR 0.9% 250 ML INJ 240 ML IV SCH (23:00)
[2017-01-01] VITALS (18 sets, daily range): BP systolic 103–132; BP diastolic 56–70; PULSE 73–107; RESP 16–25; TEMP 98–98.5; O2SAT 92–100
[2017-01-01] MEDS: METOPROLOL TARTRATE 25 MG TAB PO SCH ×4 (00:39→23:37)
[2017-01-01] MEDS: INSULIN NovoLIN REGULAR SUPPLEMENTAL SCALE SQ SCH ×3 (00:43→12:00)
[2017-01-01] MEDS: ceFAZolin 2 GM PREMIX 50 ML IV SCH ×2 (02:33→09:53)
[2017-01-01] MEDS: RESP: ALBUTEROL 2.5 MG/IPRATROPIUM 0.5 MG NEB (SCH) INH ×4 (03:11→20:06)
[2017-01-01] MEDS: DILTIAZEM 125 MG/NS 100 ML IV SCH ×2 (03:47)
[2017-01-01] MEDS: LEVOTHYROXINE SODIUM 50 MCG TAB PO SCH (05:30)
[2017-01-01 05:54] LABS: HEMATOCRIT 28.4 % (39.0-51.0); MEAN CELL VOLUME 87.3 FL (80.0-100.0); MEAN CORPUSCULAR HGB CONC 32.1 % (32.0-36.0); PLATELET COUNT 207 TH/MM3 (150-450); RED BLOOD COUNT 3.25 MIL/MM3 (4.50-5.90); RED CELL DISTRIBUTION WIDTH 19.3 % (11.6-17.2); REVIEW FLAG FINAL; WHITE BLOOD COUNT 13.3 TH/MM3 (4.0-11.0)
[2017-01-01] MEDS: AMIODARONE INJ 450 MG in D5W (EXCEL BAG) 241 ML IV SCH (06:28)
[2017-01-01] MEDS: SUCRALFATE 1 GM/10 ML CUP PO SCH ×4 (06:28→21:00)
[2017-01-01 06:52] LABS: POTASSIUM 3.7 MEQ/L (3.5-5.1)
[2017-01-01] MEDS: POLYETHYLENE GLYCOL 17 GM PKG PO SCH (09:00)
[2017-01-01] MEDS: INSULIN DETEMIR 100 UNITS/ML VIAL SQ SCH ×2 (09:00→21:00)
[2017-01-01] MEDS: SODIUM CHLORIDE 0.9% FLUSH 10 ML FLUSH IV FLUSH SCH ×2 (09:00→23:38)
[2017-01-01] MEDS: predniSONE 5 MG TAB PO SCH (09:49)
[2017-01-01] MEDS: CLOPIDOGREL 75 MG TAB PO SCH (09:52)
[2017-01-01] MEDS: DOCUSATE SODIUM 50 MG/SENNA 8.6 MG TAB PO SCH ×2 (09:52→21:00)
[2017-01-01] MEDS: RIFAMPIN 150 MG CAP PO SCH ×2 (09:52→21:00)
[2017-01-01] MEDS: ASPIRIN EC 81 MG TABEC PO SCH (09:52)
[2017-01-01] MEDS: PANTOPRAZOLE SODIUM 40 MG VIAL IV PUSH SCH ×2 (09:53→23:36)
[2017-01-01] MEDS: MULTIVITAMIN TAB PO SCH (09:53)
[2017-01-01] MEDS: THIAMINE HCL 100 MG TAB PO SCH (09:53)
[2017-01-01] MEDS: FUROSEMIDE 20 MG/2 ML VIAL IV PUSH SCH (09:54)
--- NOTE | 2017-01-01 10:20 | HHI.CCPN ---
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 He was hypotensive, febrile up to 101 and received IV fluid resuscitation with improvement in his blood pressure. EKG showed ST-T wave changes, and troponin was elevated and peaked at 17.1. The patient has been evaluated by cardiology. For NSTEMI patient underwent PCI with bare metal stent to LCx by Dr. Krause on 11/30/16. The patient had a CT of the abdomen and pelvis on admission which showed marked soft tissue thickening in the distal esophagus concerning for esophageal cancer. The patient was also noted to have liver cirrhosis and mild splenomegaly. Patient has a history of alcohol intake but according to the girlfriend has not had alcoholic drinks for several months. CTA no evidence of pulmonary embolism or pneumonia. Critical care was consulted today for altered mentation, persistent fever, MSSA bacteremia and worsening sepsis. Apparently patient was agitated overnight requiring restraints. He also sustained a fall when he tried to climb out of the bed. CT of the head was negative except for a possible artifact left temporal region. An MRI which was done today came back negative. On my evaluation the ICU patient was very lethargic and tachypneic breathing approximately 35-40. ABG showed respiratory alkalosis. His altered mentation is most likely secondary to severe sepsis, alcohol withdrawal seems less likely. Blood cultures 4/4 growing MSSA, lactic acid 3,6. 12/25: Today underwent EGD with esophageal stent placement. significant bleeding from distal esophagus. GI and anesthesia felt patient should remain intubated for airway protection. In addition, patient persistently hypotensive requiring vasopressors, phenylephrine at 100 mcg/min, and in a flutter RVR on diltiazem drip. On my evaluation, patient was becoming more unstable. Adenosine 6mg iv x 1 was given which confirmed the rhythm as a flutter, but did not convert patient. give that patient was not anticoagulated, risk/benefit of electrical cardioversion at that time was in favor of conservative measures. patient bolused with amiodarone and placed on amiodarone drip, along with aggressive electrolyte replacement. Of note, patient also has new documented diagnosis of dynamic LVOT obstruction due to his LV hypertrophy and hyperdynamic cardiac function. Critical care medicine re-consulted to evaluate and manage his respiratory failure and cardiac dysrhythmias. 12/26: No more bleeding. Will work to extubate and start liquids, continue oral meds, especially beta gutierrez. 12/29: Reconsulted due to A. fib with RVR. Currently on 5 L simple mask. On amiodarone and Cardizem drips. Looks like some pulmonary edema will be actively diuresed. Subjective 12/30: Remains in A. fib with RVR. Currently on 10 L simple mask. Continues on amiodarone drip at 0.5 mg per minute and Cardizem drip at 20 mg an hour. Despite diuresis, increasing oxygen requirements. 12/31: Good response to diuresis. Weight still up about 10 kg. Dense infiltrate right chest, increasing FiO2 requirements. 01/01: Continued respiratory failure. FiO2 70% in tight BiPAP with sats 88%. Labored respirations and poor peripheral perfusion. Will need left effusion and pericardium tapped. I predict problems with hypotension if we use sedation - will start neosynephrine then induce. I have discussed the risks of pericardiocentesis and thoracentesis in detail with the patient, especially increased arrhythmia risk, possibly fatal. Objective Vital Signs Date Time Temp Pulse Resp B/P Pulse Ox O2 Delivery O2 Flow Rate FiO2 01/01/17 07:41 95 70 01/01/17 06:00 82 01/01/17 04:00 98.5 18 132/60 12/31/16 21:00 Bi-Pap 12/31/16 20:03 15.00 Intake and Output 12/31/16 12/31/16 01/01/17 08:00 16:00 00:00 Intake Total 837 ml 925 ml 838 ml Output Total 1100 ml 2750 ml 350 ml Balance -263 ml -1825 ml 488 ml Result Diagram: 01/01/17 0500 01/01/17 0500 Imaging Last Impressions Chest X-Ray 12/28/16 0000 Signed Impressions: Service Date/Time: Wednesday, December 28, 2016 22:28 - CONCLUSION: Increase in bilateral pulmonary opacity likely representing pulmonary edema. Persistent cardiac silhouette enlargement and bilateral pleural effusions. Jarod Mcrae MD GI Procedure 12/25/16 Signed Impressions: Service Date/Time: December 19:33 - CONCLUSION: Spot film as above. Everett Pollock MD FACR Barium Swallow X-Ray 12/20/16 Signed Impressions: Service Date/Time: Tuesday, December 20, 2016 13:15 - CONCLUSION: 1. The distal half of the esophagus demonstrates irregular luminal narrowing consistent with the patient's history of esophageal adenocarcinoma. 2. Mild dilatation of the esophagus immediately proximal to the esophageal mass. However, there are no signs of obstruction. 3. Small hiatal hernia. Washington Marroquin MD Abdomen MRI 12/17/16 Signed Impressions: Service Date/Time: Saturday, December 17, 2016 13:59 - CONCLUSION: 1. No acute finding is identified to explain the abdominal pain. 2. Stable thickening of the distal esophagus. There is a single mildly enlarged left gastric lymph node measuring 12 x 10 mm. 3. Moderate sized bilateral pleural effusions, left larger than right, with associated compressive atelectasis. Washington Marroquin MD Head CT 12/01/16 Signed Impressions: Service Date/Time: Thursday, December 01, 2016 07:59 - CONCLUSION: 1. Questionable area of low attenuation left temporal lobe could be artifact versus less likely infarct. MRI may be warranted based on clinical history. 2. No midline shift or mass effect. 3. No intraparenchymal hemorrhage. Jagjit Tapia MD Brain MRI 12/01/16 Signed Impressions: Service Date/Time: Thursday, December 01, 2016 12:07 - CONCLUSION: Normal examination. Barrett Rodriguez MD Abdomen X-Ray 12/01/16 Signed Impressions: Service Date/Time: Thursday, December 01, 2016 16:48 - CONCLUSION: No evidence of obstruction. Feeding tube tip in the distal stomach. Barrett Rodriguez MD Abdomen/Pelvis CT 11/29/16 [id number] Signed Impressions: Service Date/Time: Wednesday, November 30, 2016 01:35 - CONCLUSION: 1. Markedly abnormal appearance of the distal esophagus consistent with the history of esophageal carcinoma. 2. Atherosclerotic calcifications of the aorta and iliac vessels. 3. Cirrhotic appearance to the liver with a mildly nodular contour present. Erik Simon MD CT Angiography 11/29/16 [id number] Signed Impressions: Service Date/Time: Wednesday, November 30, 2016 01:35 - CONCLUSION: 1. No evidence for pulmonary embolism or pneumonia. 2. Abnormal appearance of the esophagus with and soft tissue consistent with the history of carcinoma. Erik Simon MD Objective Remarks GENERAL: Patient is 61 yo male, currently resting in bed on NRBM mask SKIN: Warm and dry. We'll perfused HEAD: Normocephalic. EYES: No scleral icterus. No injection or drainage. MOUTH: No bleeding. NECK: trachea midline. No JVD. No thrush CARDIOVASCULAR: Tachycardia, either. S1, S2 no S4. Without murmurs, clicks, rubs RESPIRATORY: Coarse breath sounds bilaterally. Diminished in bases. Mobile secretions numerous. GASTROINTESTINAL: Abdomen soft, non-tender, nondistended. MUSCULOSKELETAL: Trace bilateral lower extremity peripheral edema. Neuro: Arousable and follows commands. Moves all 4 extremities spontaneous. Procedures central line/ arterial line placement intubation cardiac catheterization port removal EUS with esophageal stent placement A/P Assessment and Plan NEURO/Psych: Acute metabolic encephalopathy-improving Possible alcohol withdrawal - completed Chronic oxycodone use - Encephalopathy most likely secondary to hypoxia -Completed therapy with Thiamine, MVI for EtOH withdrawal Acetaminophen for fever Oxycodone for pain management 5-10 every 4 hours when necessary holding tramadol /home medication RESP: Acute hypoxemic respiratory failure - multifactorial History COPD Anterior airway Tobacco abuse Bilateral pleural effusions - Emergently intubated and placed on mechanical ventilation 12/02/16, extubated successfully 12/03/16 - (Unable to visualize cords with direct laryngoscopy. With GlideScope #4 blade Grade 2 view, easy intubation) - DuoNeb every 6 hours scheduled and every 2 hours when necessary Titrate nasal cannula to maintain saturations greater than equal to 90%. Currently on simple mask at 5 L Incentive spirometry while awake CT chest revealed bilateral pleural effusions. Request IR thoracentesis today. CV: Atrial fibrillation with RVR NSTEMI Dynamic LVOT obstruction Coronary artery disease status post bare metal stent to left circumflex Krause 12/01 Cardiac catheterization 12/01 revealed EF around 60%. Left main normal. RCA normal. LAD 70% ostial. Bare stent left circumflex 70%. -Holding neuro symmetrical milligrams IV daily - Continue ASA 162 mg daily/Plavix 75 mg daily Currently on amiodarone drip at 0.5 mg/m, Cardizem drip at 20 mg an hour and metoprolol 25 mill grams every [address] Adler - cardiology. Due to underlying multiple comorbidities not a candidate for ablation at this time. Recommend medical management - 2-D echo no veg, EF 50-55% Holding home medications of losartan 100 mg, amlodipine 10 mg daily. On atorvastatin 40 by mouth daily for dyslipidemia GI: Invasive adenocarcinoma of the esophagus Liver cirrhosis - Dobhoff placed 12/02, cleared by speech for liquid diet. - GI following- has biopsy proven invasive adenoca of esophagus - Status post EUS/esophageal stent placement 12/25 - IV Protonix for twice a day and Carafate 1 g 4 times a day : Acute kidney failure/ATN resolved - Monitor renal function closely. Saxena catheter. -On Lasix 20 IV daily Follow BMP in a.m. ID: Septic shock-resolved MSSA bacteremia [id number] infection status post removal - Rapid clinical improvement after Xgufnu-[id number] was removed remains off all pressors - Catheter tip culture blood culture and wound culture also positive for MSSA - Continue Ancef 2 g IV every 8 hours through 01/15 along with rifampin 300 mg by mouth twice a day - Infectious disease consulted by primary. 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 Bell is following - Status post surgical resection for L parotid SCC at [facility] 10/01 --Hematology plans to give weekly Erbitux and XRT outpatient. Transfuse goal hemoglobin greater than 8 ENDO: Hypokalemia Hypo-magnesium Diabetes Hypothyroidism Chronic prednisone use - Electrolyte replacement per protocol - SSI every 6 hours with Levemir 6 units every 12 hours. Holding home medications of metformin 1000 mg twice a day and glipizide 20 mill grams by mouth twice a day - Continue thyroid supplementation with levothyroxine 50 mg daily/home medication . TSH 0.555 on admission Continue prednisone 5 mg by mouth daily PROPH: - Bilateral lower extremity SCDs. No pharmacological prophylaxis secondary to hemoptysis -Protonix 40 iv twice a day Overall impression: Continuing pulmonary issues hampering recovery. Pericardial effusion is symptomatic for hypotension and poor peripheral perfusion. He has become critically ill and is deteriorating. Update: Requiring large dose of neosynephrine after intubation but good pressure > 100 produced without arrhythmias. Pericardium tapped for 255 mls non- clotting sanguinous fluid and ronald easily weaned off. Fluid sent for cytology and other studies. Critical care 46 mins aside from procedures. Freddy Bueno MD Jan 01, 2017 10:20
[2017-01-01] MEDS ORDERED: MIDAZOLAM HCL 5 MG/ML VIAL (1 ML) IM ONE (10:45)
[2017-01-01] MEDS ORDERED: TERBUTALINE INJ 1 MG/ML AMP SQ PRN (10:45)
[2017-01-01] MEDS ORDERED: ROCURONIUM INJ 100 MG/10 ML VIAL IV ONE (10:45)
[2017-01-01] MEDS ORDERED: PHENYLEPHRINE INJ 160 MG in SODIUM CHLOR 0.9% 1000 ML INJ 1,000 ML IV SCH (11:00)
--- NOTE | 2017-01-01 12:19 | PD.PROCEDR ---
Procedure Note Procedure DX: Hypoxemic Respiratory Failure (J96.01), Pericardial Effusion OP: 1. Orotracheal intubation (30297) 2. Pericardiocentesis and pericardial drainage tube placement Procedure: Bag mask ventilation for respiratory failure and hypoxemia.Pretreatment with neosynephrine gtt at 300 mcg/min. Versed 5 mg and rocuronium 100 mg iv. Intubated orally with 8.0 tube. Position confirmed with CO2 detection, breath sunds, sats 100%. Epigastrium prepped and draped. Micropuncture needle delivered under the left costal margin beside the xyphoid process and directed toward the posterior left shoulder. Shawn-aid colored fluid aspirated. A floppy wire was passed through the microneedle and exchanged for a standard wire. Dilators were passed and a 20 cm length soft silastic, two-lumen dialysis catheter was passed over the second wire. 255 mls of non-clotting sanguinous fluid drained spontaneously into a sterile container. The pericardial tube was sewn to the skin at the xyphoid and capped. Pollo-Ovalle bulbs will be attached. Blood pressure diogo to 170 after the procedure and the neosynephrine was discontinued. Freddy Bueno MD Jan 01, 2017 12:19
--- NOTE | 2017-01-01 12:48 | HHI.IDPN ---
Subjective Subjective Remarks Patient is a 61-year-old male, currently lethargic, and unable to give any history. History has been obtained from the chart. 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 It was reportedly malignant as well. He presented to the hospital complaining of generalized weakness, abdominal pain and progressive swallowing difficulty over the last 3 weeks. Evaluation in the emergency room revealed abnormal EKG, and he underwent cardiac catheterization. He had non-ST OK, and had revascularization with stent placement of his left circumflex artery. Patient is spiked to 103, and there were 2 blood cultures done yesterday that are now reported as growing staph aureus. Patient currently has a Saxena catheter. There is a lot of sediment in his urine, and his urine culture is also showing staph aureus. CT of the abdomen and pelvis did not show any abnormality except the soft tissue mass in the esophagus. He had atherosclerosis of his vasculature. There was also evidence of possible liver cirrhosis. Patient is being evaluated for chemotherapy and radiation, but he has not been started. He had an Swysyn-n-Onjw placement on November 12 on his right upper chest. Notes reviewed Temps ok Now intubated for progressive SOB On pressors Antibiotics Ancef/rifampin - plan to complete 01/15 Lines Port - removed 12/02 PICC Past Medical History Hypertension Hyperlipidemia CAD Diabetes 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 and he had good margins Recurrent squamous cell carcinoma on the left face, with involvement of the parotid gland, status post surgery at [facility] Recently found to have esophageal mass Past Surgical History Appendectomy Liver Biopsy Resection of a squamous cell carcinoma on the left cheek in 2011 Extensive surgery on the left face and neck for recurrent squamous cell carcinoma Port Placement November 12, 2016 Allergies: Coded Allergies: penicillin G (Unverified Allergy, Mild, Hives, 12/30/16) Objective . Vital Signs Date Time Temp Pulse Resp B/P Pulse Ox O2 Delivery O2 Flow Rate FiO2 01/01/17 11:25 100 100 01/01/17 07:41 95 70 01/01/17 06:00 82 01/01/17 04:00 86 01/01/17 04:00 98.5 82 18 132/60 98 01/01/17 03:54 98 70 01/01/17 02:00 73 01/01/17 00:07 99 80 01/01/17 00:00 78 01/01/17 00:00 98.2 78 16 103/59 99 12/31/16 22:00 81 12/31/16 21:55 92 100 12/31/16 21:00 96 Bi-Pap 12/31/16 20:05 94 100 12/31/16 20:03 88 Non-Rebreather 15.00 100 12/31/16 20:00 83 12/31/16 20:00 98.4 83 19 131/61 86 12/31/16 20:00 87 Non-Rebreather 15.00 12/31/16 18:00 86 12/31/16 16:00 98.5 84 20 126/48 93 12/31/16 16:00 84 12/31/16 14:00 83 12/31/16 12/31/16 01/01/17 15:00 23:00 07:00 Intake Total 925 ml 838 ml 814 ml Output Total 2750 ml 350 ml 300 ml Balance -1825 ml 488 ml 514 ml Intake Oral 480 ml 420 ml 240 ml IV Total 445 ml 418 ml 574 ml Output Urine Total 2750 ml 350 ml 300 ml # Bowel Movements 0 0 0 . Laboratory Tests Test 12/30/16 12/31/16 01/01/17 18:30 04:12 05:00 White Blood Count 10.2 TH/MM3 12.4 TH/MM3 13.3 TH/MM3 Red Blood Count 2.88 MIL/MM3 3.14 MIL/MM3 3.25 MIL/MM3 Hemoglobin 8.6 GM/DL 8.9 GM/DL 9.1 GM/DL Hematocrit 25.0 % 27.4 % 28.4 % Mean Corpuscular Volume 86.9 FL 87.2 FL 87.3 FL Mean Corpuscular Hemoglobin 30.0 PG 28.5 PG 28.0 PG Mean Corpuscular Hemoglobin 34.5 % 32.6 % 32.1 % Concent Red Cell Distribution Width 19.6 % 19.3 % 19.3 % Platelet Count 190 TH/MM3 210 TH/MM3 207 TH/MM3 Mean Platelet Volume 8.3 FL 7.9 FL 7.8 FL Laboratory Tests Test 12/31/16 01/01/17 04:12 05:00 Sodium Level 127 MEQ/L 127 MEQ/L Potassium Level 3.9 MEQ/L 3.7 MEQ/L Chloride Level 85 MEQ/L 84 MEQ/L Carbon Dioxide Level 35.8 MEQ/L 37.0 MEQ/L Anion Gap 6 MEQ/L 6 MEQ/L Blood Urea Nitrogen 12 MG/DL 16 MG/DL Creatinine 0.55 MG/DL 0.64 MG/DL Estimat Glomerular Filtration 152 ML/MIN 128 ML/MIN Rate Random Glucose 239 MG/DL 124 MG/DL Calcium Level 7.3 MG/DL 7.5 MG/DL Protein Corrected Calcium 8.1 MG/DL Phosphorus Level 2.7 MG/DL Magnesium Level 1.7 MG/DL Total Protein 5.7 GM/DL Microbiology Date/Time Procedure Status Source Growth 12/30/16 15:58 Gram Stain - Final Resulted Fluid Pleural Fluid 12/30/16 15:58 Body Fluid Culture - Preliminary Resulted Fluid Pleural Fluid NO GROWTH IN 48 HOURS. 12/30/16 15:58 Acid Fast Stain - Final Resulted Fluid Pleural Fluid NO ACID FAST BACILLI SEEN 12/30/16 15:58 Mycobacterial Culture Resulted Fluid Pleural Fluid Pending 12/30/16 15:58 Fungal Smear Received Fluid Pleural Fluid Pending 12/30/16 15:58 Fungal Culture Received Fluid Pleural Fluid Pending Imaging Last 48 hours Impressions Chest X-Ray 12/31/16 0600 Signed Impressions: Service Date/Time: Saturday, December 31, 2016 03:30 - CONCLUSION: Increasing consolidative infiltrates in the right lower lung, persistence patchy infiltrates in the right upper lung and persistent dense consolidation of the left lower lung. Kulwant Gupta MD CT Angiography 12/31/16 0000 Signed Impressions: Service Date/Time: Saturday, December 31, 2016 01:00 - CONCLUSION: 1. Study is negative for pulmonary embolism. 2. Pericardial effusion, diffuse patchy consolidation in both lungs, collapse left lower lobe, bilateral pleural effusions, esophageal stent, similar to yesterday's CT thorax. Kulwant Gupta MD Last 48 hours Impressions Chest X-Ray 12/26/16 0600 Signed Impressions: Service Date/Time: Monday, December 26, 2016 03:45 - CONCLUSION: Improving pulmonary edema and effusions, now mild/small. Unchanged moderate cardiomegaly. Washington Beasley MD GI Procedure 12/25/16 0000 Signed Impressions: Service Date/Time: December 19:33 - CONCLUSION: Spot film as above. Everett Pollock MD FACR Chest X-Ray 12/25/16 0000 Signed Impressions: Service Date/Time: December 20:28 - CONCLUSION: ET in good position; increasing congestive failure. Everett Pollock MD FACR Chest X-Ray 12/05/16 0600 Signed Impressions: Service Date/Time: Monday, December 05, 2016 03:30 - CONCLUSION: 1. Cardiomegaly and findings of vascular congestion without overt failure. There has been no significant change when compared to the prior exam. Bobby Matias MD Head CT 12/01/16 0000 Signed Impressions: Service Date/Time: Thursday, December 01, 2016 07:59 - CONCLUSION: 1. Questionable area of low attenuation left temporal lobe could be artifact versus less likely infarct. MRI may be warranted based on clinical history. 2. No midline shift or mass effect. 3. No intraparenchymal hemorrhage. Jagjit Tapia MD Brain MRI 12/01/16 0000 Signed Impressions: Service Date/Time: Thursday, December 01, 2016 12:07 - CONCLUSION: Normal examination. Barrett Rodriguez MD Abdomen X-Ray 12/01/16 0000 Signed Impressions: Service Date/Time: Thursday, December 01, 2016 16:48 - CONCLUSION: No evidence of obstruction. Feeding tube tip in the distal stomach. Barrett Rodriguez MD Abdomen/Pelvis CT 11/29/166 Signed Impressions: Service Date/Time: Wednesday, November 30, 2016 01:35 - CONCLUSION: 1. Markedly abnormal appearance of the distal esophagus consistent with the history of esophageal carcinoma. 2. Atherosclerotic calcifications of the aorta and iliac vessels. 3. Cirrhotic appearance to the liver with a mildly nodular contour present. Erik Simon MD CT Angiography 11/29/16 5725 Signed Impressions: Service Date/Time: Wednesday, November 30, 2016 01:35 - CONCLUSION: 1. No evidence for pulmonary embolism or pneumonia. 2. Abnormal appearance of the esophagus with and soft tissue consistent with the history of carcinoma. Erik Simon MD Chest X-Ray 12/03/16 0600 Signed Impressions: Service Date/Time: Saturday, December 03, 2016 04:43 - CONCLUSION: Increasing consolidation in the left lower lung. Bilateral interstitial changes. Niko Wilcox MD Chest X-Ray 12/03/16 0000 Signed Impressions: Service Date/Time: Saturday, December 03, 2016 07:48 - CONCLUSION: 1. Persistent left retrocardiac density and slight interstitial prominence. Jagjit Tapia MD Chest X-Ray 12/02/16 0000 Signed Impressions: Service Date/Time: Friday, December 02, 2016 15:55 - CONCLUSION: Normal examination with endotracheal tube and central lines in good position. Barrett Rodriguez MD Chest X-Ray 12/02/16 0000 Signed Impressions: Service Date/Time: Friday, December 02, 2016 08:24 - CONCLUSION: Mild perihilar vascular congestion. Endotracheal tube is in good position Barrett Rodriguez MD Chest X-Ray 12/02/16 0000 Signed Impressions: Service Date/Time: Friday, December 02, 2016 06:53 - CONCLUSION: Underinflated examination with atelectasis at the lung bases. Given the technique, no acute abnormality or significant interval change is appreciated. Washington Marroquin MD Physical Exam GENERAL: Sedated on the vent. SKIN: Warm and dry. No generalized rash EYES: . No scleral icterus. No injection or drainage. EARS, NOSE AND THROAT: Nose without bleeding or purulent nasal discharge. Orally intubated. NECK: Trachea midline. Supple and not tender, no meningeal signs CARDIOVASCULAR: Irregular rate and rhythm, HR 129. There is a coarse systolic murmur at base of the heart. No rub. RESPIRATORY: Some rhonchi on R. INtact dressing R chest ABDOMEN: Soft, not distended, not tender. Bowel sounds present and normoactive. No organomegaly. EXTREMITIES: No clubbing, cyanosis. Has pitting BLE edema, weeping. No calf tenderness. Well perfused and warm. NEUROLOGICAL: sedated PSYCHIATRIC: unable to assess LINE: Dry dressing on previous port site, healing. PICC site ok : Saxena in place Assessment & Plan Remarks IMPRESSION Respiratory failure - ?new PNA - CHF - S/P RX GNR PNA Recurrent shock MSSA sepsis due to port infection, removed - S/P removal port 12/02 - last (+) BC 12/05 Recurrent squamous cell CA Esophageal CA, S/P EUS and stent placement Lethargy and SOB due to sepsis, resolved - has acidosis, resolved Renal insufficiency, due to sepsis and shock, better Atrial fib, rate still goes up and down New murmur - last echo with new "pseudo" outflow tract obstruction, ?this is source RECOMMENDATION Continue Rifampin, for synergy vs MSSA - follow LFT Hold IV Ancef since Cefepime has excellent MSSA coverage He will need 6 weeks IV Abx - anticipated end date Jan 15 (6 weeks from last +BC) Labs weekly while on Abx: CBC, creatinine and LFT - will have HEPAS order and monitor - call if abnormal and with questions Sputum G/S C/S 2 BC Add Cefepime One dose IV vanco D/W Carola Dick MD Jan 01, 2017 12:48
[2017-01-01] MEDS ORDERED: FUROSEMIDE 40 MG/4 ML VIAL IV PUSH ONE (13:00)
--- NOTE | 2017-01-01 13:17 | RADRPT ---
EXAM DATE/TIME: 01/01/2017 12:33 [place] COMPARISON: CT PULMONARY ANGIOGRAM, December 31, 2016, 1:00. CHEST SINGLE AP, December 31, 2016, 3:30. INDICATIONS : Post pericardiocentesis. MEDICAL HISTORY : Hypertension. Esophageal mass. SURGICAL HISTORY : None. ENCOUNTER: Subsequent ACUITY: 1 day PAIN SCORE: Non-responsive. LOCATION: Bilateral chest FINDINGS: The heart is mildly enlarged. There is diffuse bilateral parenchymal infiltrate which appears signifi cantly improved when compared to previous. Note is made of a pericardial drain at the left lung base. The osseous structures are intact. ET tubes in good position. PICC is in good position. Incidental note is made of an esophageal stent. CONCLUSION: 1. Improving diffuse parenchymal infiltrate. 2. Esophageal stent and PICC in good position. 3. There is a pericardial drain present. Benjamin Pollock MD on January 01, 2017 at 13:13 Board Certified Radiologist. This report was verified electronically.
[2017-01-01] MEDS: CEFEPIME INJ 2,000 MG in SODIUM CHLORIDE 0.9% INJ 100 ML IV SCH (14:00)
[2017-01-01] MEDS ORDERED: VANCOMYCIN INJ 1,000 MG in SODIUM CHLOR 0.9% 250 ML INJ 250 ML IV ONE (14:30)
[2017-01-01] MEDS: PROPOFOL 1000 MG/100 ML INJ 100 ML IV SCH ×4 (14:41→23:39)
--- NOTE | 2017-01-01 14:49 | HHI.HCPN ---
Reason for visit a. To assist with evaluation and management of symptoms including: Pain, shortness of breath and debility. b. To assist medical decision maker(s) with: better understanding of current medical conditions; weighing benefits/burdens of medical treatment options; making medical treatment decisions. . Subjective/Interval History Mr. 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 Clinical course complicated by NSTEMI, patient underwent PCI with bare metal stents on 11/30/16. Clinical course further complicated by persistent fever, MSSA bacteremia, worsening sepsis, A. fib with RVR and persistent respiratory failure. Patient underwent EGD with esophageal stent placement on 12/25/16, complicated by significant bleeding from distal esophagus, in addition to persistent hypotension requiring vasopressors. Palliative care was consulted for further clarifications of goals of care. Patient with increased oxygen requirement overnight, was placed on BiPAP FiO2 70%, sats of 88%. Clinical condition further complicated by pericardial effusion and persistent consolidation of the left lower lung. Patient underwent pericardiocentesis with drain placement, 255 mL of pericardial fluid obtained and sent to pathology. Patient was endotracheally intubated and placed on mechanical ventilation secondary to hypoxemia respiratory failure and pericardial effusion. Patient was placed on Oziel-Synephrine secondary to hypotension. Patient seen in ICU s/p pericardiocentesis and intubation. Briefly opening eyes, not following commands. A febrile. Follow-up chest x- ray showing improvement in diffuse infiltrates. Laboratory workup today revealing leukocytosis, WBC 13.3. Hemoglobin stable at 9.1. Platelet count 207. Case discussed with Dr. Bueno and bedside RN Erin. Telephone conversation with patient's girlfriend Luly Valentinoy, medical update provided. Shared concerns of patient's clinical condition, discussed that he is still at high risk for further complications, continue decline and given his respiratory condition, multiple ongoing chronic comorbidities and profound physical deconditioning/debility. Discussed with Luly goals of care conversation with patient the day before in which he verbalized wishing to remain a full code/intubation and mechanical ventilation. In addition, patient verbalized being against tracheostomy if unable to medically extubate. Girlfriend Luly receptive to palliative care follow up. Patient's daughter Mena La has been updated of patient's clinical condition. Ongoing emotional support and active listening provided. . Family/friend interactions See interval note. . Advance Directives Living Will: Never completed Health Care Surrogate: Copy in medical record Durable Power of Clinic Charge Nurse: Never completed Advance Directive Specifics Date completed: 12/25/16. . Health Care Surrogate(s): Patient designated his daughter Mena La AND girlfriend Luly Bautista as co- healthcare surrogate decision makers. . Documented care wishes: No living will. . Significant change in goals: Goals of care remain unchanged. . Objective Vital Signs Date Time Temp Pulse Resp B/P Pulse Ox O2 Delivery O2 Flow Rate FiO2 01/01/17 11:25 100 100 01/01/17 08:00 85 01/01/17 07:41 95 70 01/01/17 06:00 82 01/01/17 04:00 86 01/01/17 04:00 98.5 82 18 132/60 98 01/01/17 03:54 98 70 01/01/17 02:00 73 01/01/17 00:07 99 80 01/01/17 00:00 78 01/01/17 00:00 98.2 78 16 103/59 99 12/31/16 22:00 81 12/31/16 21:55 92 100 12/31/16 21:00 96 Bi-Pap 12/31/16 20:05 94 100 12/31/16 20:03 88 Non-Rebreather 15.00 100 12/31/16 20:00 83 12/31/16 20:00 98.4 83 19 131/61 86 12/31/16 20:00 87 Non-Rebreather 15.00 12/31/16 18:00 86 12/31/16 16:00 98.5 84 20 126/48 93 12/31/16 16:00 84 Intake & Output 01/01/17 01/01/17 07:00 19:00 Intake Total 1652 ml 765 ml Output Total 650 ml 1200 ml Balance 1002 ml -435 ml Intake Oral 660 ml IV Total 992 ml 765 ml Output Urine Total 650 ml 950 ml Drainage Total 250 ml # Bowel Movements 0 Physical Exam CONSTITUTIONAL/GENERAL: This is an adequately nourished patient in no acute distress. Endotracheally intubated on mechanical ventilation. TUBES/LINES/DRAINS: PICC line to PIYUSH, ETT, OG, SCDs, Saxena catheter. PIV's, pericardial drains/CONCETTA x2. SKIN: No jaundice, rashes, or lesions. Scattered ecchymosis to upper extremities. Skin temperature appropriate. Not diaphoretic. HEAD: Atraumatic. Normocephalic. EYES: Pupils equal and round and reactive. Extraocular motions intact. ENT: Hearing grossly normal. Nose without bleeding or purulent drainage. Left cheek with postsurgical changes, healed. Moist oral mucosa, dry lips. NECK: Trachea midline. Supple, nontender. CARDIOVASCULAR: Regular rate and rhythm, systolic murmur. Edema to bilateral upper and lower extremities. RESPIRATORY/CHEST: Symmetric, endotracheally intubated on mechanical ventilation. Diminished breath sounds bilaterally. GASTROINTESTINAL: Abdomen soft, non-tender, nondistended. Bowel sounds present. GENITOURINARY: Without palpable bladder distension. Saxena catheter intact to bedside drainage. MUSCULOSKELETAL: Moves all extremities. NEUROLOGICAL: Sedated. Briefly opening eyes, not following commands. PSYCHIATRIC: Unable to evaluate secondary to clinical condition. Appears calm. . Diagnostic Tests Laboratory Laboratory Tests Test 12/29/16 12/30/16 12/30/16 12/30/16 17:19 04:08 15:00 15:58 Blood Gas Puncture Site ART LINE Blood Gas Patient Temperature 98.6 Blood Gas HCO3 31 mmol/L (22-26) Blood Gas Base Excess 6.7 mmol/L (-2-2) Blood Gas Oxygen Saturation 94 % (90-100) Arterial Blood pH 7.44 (7.380-7.420) Arterial Blood Partial 47 mmHg (38-42) Pressure CO2 Arterial Blood Partial 84 mmHg Pressure O2 (61-120) Arterial Blood Oxygen Content 19.5 Vol % (12.0-20.0) Arterial Blood 1.8 % (0-4) Carboxyhemoglobin Arterial Blood Methemoglobin 0.7 % (0-2) Blood Gas Hemoglobin 14.8 G/DL (12.0-16.0) Oxygen Delivery Device SIMPLE MASK Blood Gas Liter Flow 6 L/M White Blood Count 10.4 TH/MM3 (4.0-11.0) Red Blood Count 3.07 MIL/MM3 (4.50-5.90) Hemoglobin 9.1 GM/DL (13.0-17.0) Hematocrit 26.4 % (39.0-51.0) Mean Corpuscular Volume 86.0 FL (80.0-100.0) Mean Corpuscular Hemoglobin 29.5 PG (27.0-34.0) Mean Corpuscular Hemoglobin 34.3 % Concent (32.0-36.0) Red Cell Distribution Width 19.6 % (11.6-17.2) Platelet Count 196 TH/MM3 (150-450) Mean Platelet Volume 8.1 FL (7.0-11.0) Sodium Level 126 MEQ/L (136-145) Potassium Level 3.6 MEQ/L (3.5-5.1) Chloride Level 86 MEQ/L (98-107) Carbon Dioxide Level 35.1 MEQ/L (21.0-32.0) Anion Gap 5 MEQ/L (5-15) Blood Urea Nitrogen 10 MG/DL (7-18) Creatinine 0.54 MG/DL (0.60-1.30) Estimat Glomerular Filtration 156 ML/MIN Rate (>89) Random Glucose 195 MG/DL (74-106) Calcium Level 7.4 MG/DL (8.5-10.1) Protein Corrected Calcium 8.1 MG/DL (8.5-10.1) Phosphorus Level 2.1 MG/DL (2.5-4.9) Magnesium Level 1.8 MG/DL (1.5-2.5) Total Protein 5.9 GM/DL (6.4-8.2) Prothrombin Time 13.0 SEC (9.8-11.6) Prothromb Time International 1.2 RATIO Ratio Activated Partial 28.6 SEC Thromboplast Time (24.3-30.1) Pleural Fluid pH 8.0 Pleural Fluid WBC 715 /MM3 (0-10) Pleural Fluid RBC 69538 /MM3 (0-0) Pleural Fluid Neutrophils 87 % Pleural Fluid Lymphocytes 11 % Pleural Fluid Histiocytes 2 % Pleural Fluid Total Protein 1.5 GM/DL Pleural Fluid LDH 128 U/L Pleural Fluid Glucose 248 MG/DL Body Fluid Amylase Source PLEURAL FLUID (()) Body Fluid Amylase 7 U/L (()) Test 12/30/16 12/31/16 12/31/16 12/31/16 18:30 00:12 04:10 04:12 White Blood Count 10.2 TH/MM3 12.4 TH/MM3 (4.0-11.0) (4.0-11.0) Red Blood Count 2.88 MIL/MM3 3.14 MIL/MM3 (4.50-5.90) (4.50-5.90) Hemoglobin 8.6 GM/DL 8.9 GM/DL (13.0-17.0) (13.0-17.0) Hematocrit 25.0 % 27.4 % (39.0-51.0) (39.0-51.0) Mean Corpuscular Volume 86.9 FL 87.2 FL (80.0-100.0) (80.0-100.0) Mean Corpuscular Hemoglobin 30.0 PG 28.5 PG (27.0-34.0) (27.0-34.0) Mean Corpuscular Hemoglobin 34.5 % 32.6 % Concent (32.0-36.0) (32.0-36.0) Red Cell Distribution Width 19.6 % 19.3 % (11.6-17.2) (11.6-17.2) Platelet Count 190 TH/MM3 210 TH/MM3 (150-450) (150-450) Mean Platelet Volume 8.3 FL 7.9 FL (7.0-11.0) (7.0-11.0) Blood Type O NEGATIVE Antibody Screen NEGATIVE Crossmatch Leukocyte-Reduced Red Blood Cells Blood Bank Comment Blood Gas Puncture Site LT BRACHIAL Blood Gas Patient Temperature 98.6 Blood Gas HCO3 36 mmol/L (22-26) Blood Gas Base Excess 11.1 mmol/L (-2-2) Blood Gas Oxygen Saturation 97 % (90-100) Arterial Blood pH 7.46 (7.380-7.420) Arterial Blood Partial 51 mmHg (38-42) Pressure CO2 Arterial Blood Partial 117 mmHg Pressure O2 (61-120) Arterial Blood Oxygen Content 12.6 Vol % (12.0-20.0) Arterial Blood 1.9 % (0-4) Carboxyhemoglobin Arterial Blood Methemoglobin 0.7 % (0-2) Blood Gas Hemoglobin 9.2 G/DL (12.0-16.0) Oxygen Delivery Device NRB Blood Gas Liter Flow 15 L/M Blood Gas Inspired Oxygen 100 % Sodium Level 127 MEQ/L (136-145) Potassium Level 3.9 MEQ/L (3.5-5.1) Chloride Level 85 MEQ/L (98-107) Carbon Dioxide Level 35.8 MEQ/L (21.0-32.0) Anion Gap 6 MEQ/L (5-15) Blood Urea Nitrogen 12 MG/DL (7-18) Creatinine 0.55 MG/DL (0.60-1.30) Estimat Glomerular Filtration 152 ML/MIN Rate (>89) Random Glucose 239 MG/DL (74-106) Calcium Level 7.3 MG/DL (8.5-10.1) Protein Corrected Calcium 8.1 MG/DL (8.5-10.1) Phosphorus Level 2.7 MG/DL (2.5-4.9) Magnesium Level 1.7 MG/DL (1.5-2.5) Total Protein 5.7 GM/DL (6.4-8.2) Test 01/01/17 05:00 White Blood Count 13.3 TH/MM3 (4.0-11.0) Red Blood Count 3.25 MIL/MM3 (4.50-5.90) Hemoglobin 9.1 GM/DL (13.0-17.0) Hematocrit 28.4 % (39.0-51.0) Mean Corpuscular Volume 87.3 FL (80.0-100.0) Mean Corpuscular Hemoglobin 28.0 PG (27.0-34.0) Mean Corpuscular Hemoglobin 32.1 % Concent (32.0-36.0) Red Cell Distribution Width 19.3 % (11.6-17.2) Platelet Count 207 TH/MM3 (150-450) Mean Platelet Volume 7.8 FL (7.0-11.0) Sodium Level 127 MEQ/L (136-145) Potassium Level 3.7 MEQ/L (3.5-5.1) Chloride Level 84 MEQ/L (98-107) Carbon Dioxide Level 37.0 MEQ/L (21.0-32.0) Anion Gap 6 MEQ/L (5-15) Blood Urea Nitrogen 16 MG/DL (7-18) Creatinine 0.64 MG/DL (0.60-1.30) Estimat Glomerular Filtration 128 ML/MIN Rate (>89) Random Glucose 124 MG/DL (74-106) Calcium Level 7.5 MG/DL (8.5-10.1) Result Diagram: 01/01/17 0500 01/01/17 0500 Microbiology Microbiology Date/Time Procedure Status Source Growth 12/30/16 15:58 Gram Stain - Final Resulted Fluid Pleural Fluid 12/30/16 15:58 Body Fluid Culture - Preliminary Resulted Fluid Pleural Fluid NO GROWTH IN 48 HOURS. 12/30/16 15:58 Acid Fast Stain - Final Resulted Fluid Pleural Fluid NO ACID FAST BACILLI SEEN 12/30/16 15:58 Mycobacterial Culture Resulted Fluid Pleural Fluid Pending 12/30/16 15:58 Fungal Smear Received Fluid Pleural Fluid Pending 12/30/16 15:58 Fungal Culture Received Fluid Pleural Fluid Pending Procedures 11/30/16 - he underwent left and right heart catheterization with the following findings: RCA-dominant, 10% lesion mid. PDA-patent with TALI III flow. LM-no significant obstructive lesions. LAD-transapical, no significant obstructive lesions. Diagonal-70% lesion ostial, small vessel. Left circumflex-proximal clot thrombus, TALI II flow with 2 OM branches, both patent. Procedure-PCI/BMS to proximal left circumflex in setting of NSTEMI. No left ventriculogram done due to concern for renal function. EF by echocardiogram 12/01/16 was 50-55%, mild concentric left ventricular hypertrophy, normal right ventricular size and function, no significant valvular disease, pulmonary hypertension or effusion noted. This was reexamined 87 due to concern for possible pericardial infusion. Findings included dynamic "pseudo-" outflow tract obstructive physiology due to concentric hypertrophy and hyperdynamic systolic function with mild mitral regurgitation, mild aortic valve regurgitation and small to moderate pericardial effusion, not hemodynamically significant. 12/02/16-left axillary arterial line placement. 12/02/16-intubation. 12/02/16 left subclavian central line placement. 12/02/1684-[id number]-Port removal secondary to sepsis. 12/25/16-EUS followed by an EGD with esophageal stent placement 12/25/16-reintubation 12/25/16-arterial line placement 12/26/16 -extubation 01/01/17 -pericardiocentesis 01/01/17 -reintubation . . Assessment and Plan Disease Oriented Problem List: (1) Respiratory failure (2) Edema (3) Esophageal carcinoma (4) SCC (squamous cell carcinoma) (5) NSTEMI (non-ST elevated myocardial infarction) (6) Atrial fibrillation with RVR Symptom Scale: (1) Shortness of breath 0-10 Scale: Unable to quantify Comment: Persistent respiratory failure, currently intubated on mechanical ventilation. (2) Pain 0-10 Scale: Unable to quantify Comment: Ongoing fentanyl drip. (3) Debility 0-10 Scale: Unable to quantify Comment: Progressive, secondary to acute illness and prolonged hospitalization. (4) Edema 0-10 Scale: Unable to quantify Pertinent Non-Medical Issues Psychosocial:This is a 61-year-old male that was born in [place], [place] and moved to [place] when he was 15. He never attended high school after he moved to [place] nor obtained his GED. 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 He was never in the . Spiritual: No spiritual affiliation. Legal: Has designated his daughter Ben La and his girlfriend Luly Bautista as joint healthcare surrogates. Ethical issues impacting care: None noted. . Important Contacts Daughter-Ben La Significant other-Luly Bautista , Mother-Orly Sky (Ama[place]), [place], [place] . Prognosis Mr. 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 Clinical course complicated by NSTEMI, patient underwent PCI with bare metal stents on 11/30/16. Clinical course further complicated by persistent fever, MSSA bacteremia, worsening sepsis, A. fib with RVR and persistent respiratory failure. Patient underwent EGD with esophageal stent placement on 12/25/16, complicated by significant bleeding from distal esophagus, in addition to persistent respiratory failure. Patient at a very high risk for further complications, continue decline and . . Code Status: Full Code Plan * CODE STATUS: Full code. Risk, benefits and limitations of CPR, intubation and mechanical ventilation were discussed yesterday in great detail with patient. This was readdressed earlier today by Dr. Bueno. Patient electing full code. * HEALTHCARE DECISION-MAKING: Patient unable to participate at this time in medical decision-making secondary to clinical condition, sedated, intubated on mechanical ventilation.. He has designated his daughter Mena La AND girlfriend Luly Plunkett as co-healthcare surrogate decision makers. * GOALS OF CARE: Patient had elected to continue aggressive management to include full code. As per conversation of yesterday, patient in agreement with reintubation and mechanical ventilation if medically necessary. However, patient verbalized NOT being in agreement with tracheostomy if he is unable to be medically extubate. Telephone conversation with patient's girlfriend Luly Plunkett, share concerns of patient's clinical status and guarded prognosis given acute complications, multiple ongoing chronic comorbidities and profound physical deconditioning/debility. Girlfriend receptive to palliative care follow-ups. * SYMPTOMS: = Shortness of breath, secondary to persistent respiratory failure. Increased oxygen requirements, reintubated today and placed on mechanical ventilation. = Pain, multifactorial. Likely secondary to multiple procedures, prolonged hospitalization, bedrest. Ongoing fentanyl drip. = Debility, secondary to acute illness and prolonged hospitalization. PT following, however , treatment on hold secondary to changes in clinical status. * Case discussed with bedside ROMAN Khan. * Palliative care contact information has been provided to patient. * Palliative care will continue to follow-up as needed for further clarifications of goals of care as patient's clinical course continues to evolve. . Time Spent Total Floor Time (mins): 34 (Total time to include review of medical records, physical exam, telephone conversation with patient's girlfriend Luly and case discussion with Dr. Bueno and bedside RN Erin.) >50% Counseling/Coord of Care: Yes Attestation To help prompt me to consider important information that might be impacting today's encounter and assessment, information from prior notes written by myself or my colleagues may have been "brought forward" into today's note. My signature on this note, however, is an attestation that I personally performed the exam, history, and/or decision-making noted today, and, unless otherwise indicated, the interactions with patient, family, and staff as well as the review of records all occurred today. I also attest that the listed assessment and stated plan reflect my best clinical judgment today based on the combination of historical information, prior notes, and today's exam/ interactions. When time spent is documented, it refers only to time spent today by the signer, or if indicated, combined time spent today by collaborating physician/nurse practitioner. Ida Alston Jan 01, 2017 14:49
--- NOTE | 2017-01-01 15:30 | PD.ONC.PN ---
Subjective Subjective Remarks Afebrile overnight Per RN he was intubated around 11:30 this am Had pericardial effusion, 250ml's drained. Plan to try to extubate tomorrow. Objective Data Date Time Temp Pulse Resp B/P Pulse Ox O2 Delivery O2 Flow Rate FiO2 01/01/17 15:19 100 50 01/01/17 14:00 77 01/01/17 12:00 86 01/01/17 11:25 100 100 01/01/17 10:00 85 01/01/17 08:00 85 01/01/17 07:41 95 70 01/01/17 06:00 82 01/01/17 04:00 86 01/01/17 04:00 98.5 82 18 132/60 98 01/01/17 03:54 98 70 01/01/17 02:00 73 01/01/17 00:07 99 80 01/01/17 00:00 78 01/01/17 00:00 98.2 78 16 103/59 99 12/31/16 22:00 81 12/31/16 21:55 92 100 12/31/16 21:00 96 Bi-Pap 12/31/16 20:05 94 100 12/31/16 20:03 88 Non-Rebreather 15.00 100 12/31/16 20:00 83 12/31/16 20:00 98.4 83 19 131/61 86 12/31/16 20:00 87 Non-Rebreather 15.00 12/31/16 18:00 86 12/31/16 16:00 98.5 84 20 126/48 93 12/31/16 16:00 84 01/01/17 01/01/17 01/01/17 07:00 15:00 23:00 Intake Total 814 ml 765 ml Output Total 300 ml 1200 ml Balance 514 ml -435 ml Result Diagram: 01/01/17 0500 01/01/17 0500 Laboratory Results Laboratory Tests Test 01/01/17 05:00 White Blood Count 13.3 TH/MM3 Red Blood Count 3.25 MIL/MM3 Hemoglobin 9.1 GM/DL Hematocrit 28.4 % Mean Corpuscular Volume 87.3 FL Mean Corpuscular Hemoglobin 28.0 PG Mean Corpuscular Hemoglobin 32.1 % Concent Red Cell Distribution Width 19.3 % Platelet Count 207 TH/MM3 Mean Platelet Volume 7.8 FL Sodium Level 127 MEQ/L Potassium Level 3.7 MEQ/L Chloride Level 84 MEQ/L Carbon Dioxide Level 37.0 MEQ/L Anion Gap 6 MEQ/L Blood Urea Nitrogen 16 MG/DL Creatinine 0.64 MG/DL Estimat Glomerular Filtration 128 ML/MIN Rate Random Glucose 124 MG/DL Calcium Level 7.5 MG/DL Culture Results Microbiology Date/Time Procedure Status Source Growth 12/30/16 15:58 Gram Stain - Final Resulted Fluid Pleural Fluid 12/30/16 15:58 Body Fluid Culture - Preliminary Resulted Fluid Pleural Fluid NO GROWTH IN 48 HOURS. 12/30/16 15:58 Acid Fast Stain - Final Resulted Fluid Pleural Fluid NO ACID FAST BACILLI SEEN 12/30/16 15:58 Mycobacterial Culture Resulted Fluid Pleural Fluid Pending 12/30/16 15:58 Fungal Smear Received Fluid Pleural Fluid Pending 12/30/16 15:58 Fungal Culture Received Fluid Pleural Fluid Pending Imaging Studies Last 24 hours Impressions Chest X-Ray 01/01/17 0000 Signed Impressions: Service Date/Time: December 12:33 - CONCLUSION: 1. Improving diffuse parenchymal infiltrate. 2. Esophageal stent and PICC in good position. 3. There is a pericardial drain present. Benjamin Pollock MD Administered Medications Medications (Trade) Dose Ordered Sig/Geovanny Route PRN Reason Start Time Stop Time Status Last Admin Dose Admin Sodium Chloride (NS Flush) 2 ml UNSCH PRN IV FLUSH FLUSH AFTER USING IV ACCESS 11/30/16 02:45 12/24/16 09:59 Sodium Chloride (NS Flush) 2 ml BID IV FLUSH 11/30/16 09:00 12/31/16 22:02 Oxycodone HCl (Roxicodone) 5 mg Q4H PRN PO PAIN SCALE 3 TO 5 11/30/16 02:45 12/31/16 18:24 Senna/Docusate Sodium (Rere-Colace) 1 tab BID PO 11/30/16 09:00 01/01/17 09:52 Acetaminophen (Tylenol) 325 mg Q4H PRN PO PAIN SCALE 1 TO 2 11/30/16 13:45 12/13/16 17:13 Clopidogrel Bisulfate (Plavix) 75 mg DAILY PO 12/01/16 09:00 Hold 12/25/16 08:06 Ondansetron HCl (Zofran Inj) 4 mg Q4H PRN IV NAUSEA 11/30/16 13:45 12/24/16 22:41 Sodium Chloride (NS Flush) 5 ml Q21D IV FLUSH 11/30/16 18:00 12/21/16 17:19 Heparin Sodium (Porcine) (Heparin Central Flush) 500 units Q21D IV FLUSH 11/30/16 18:00 11/30/16 18:04 Acetaminophen (Tylenol 650 Mg/ 20 ml Liq) 650 mg Q6H PRN PO FEVER 12/01/16 17:30 12/02/16 01:07 Polyethylene Glycol (Miralax) 17 gm DAILY PO 12/04/16 09:00 12/31/16 09:08 Thiamine HCl (Vitamin B1) 100 mg DAILY PO 12/05/16 09:00 01/01/17 09:53 Multivitamins (Theragran) 1 tab DAILY PO 12/05/16 09:00 01/01/17 09:53 Folic Acid (Folate) 1 mg DAILY PO 12/05/16 09:00 Hold 12/25/16 08:07 Rifampin (Rifampin) 300 mg Q12HR PO 12/06/16 09:15 01/15/17 23:00 01/01/17 09:52 Lorazepam (Ativan Inj) 1 mg Q4H PRN IV PUSH ANXIETY AND/OR AGITATION 12/09/16 15:15 12/31/16 14:16 Atorvastatin Calcium (Lipitor) 40 mg HS PO 12/12/16 21:00 Hold 12/24/16 21:00 Sodium Chloride (NS Flush) See Protocol DAILY IV FLUSH 12/13/16 09:00 12/27/16 08:04 Heparin Sodium (Porcine) (Heparin Central Flush) See Protocol DAILY IV FLUSH 12/13/16 09:00 12/27/16 08:05 Sodium Chloride (NS Flush) UNSCH PRN IV FLUSH SEE PROTOCOL TABLE 12/12/16 17:00 12/19/16 01:59 Lorazepam (Ativan) 0.5 mg DAILY PRN PO ANXIETY 12/18/16 15:45 Hold 12/19/16 08:29 Diltiazem HCl (Cardizem) 90 mg Q6H PO 12/18/16 23:00 Hold 12/25/16 12:14 Oxycodone HCl (Roxicodone) 15 mg Q4H PRN PO PAIN 6-10 12/21/16 11:00 12/31/16 19:51 Digoxin (Lanoxin) 0.25 mg DAILY PO 12/22/16 09:00 Hold 12/25/16 08:06 Sucralfate (Carafate Liq) 1 gm ACHS PO 12/22/16 11:00 01/01/17 09:53 Metoprolol Tartrate (Lopressor Inj) 5 mg Q1HR PRN IV PUSH RAPID HEART RATE 12/22/16 09:45 12/30/16 10:37 Pantoprazole Sodium (Protonix Inj) 40 mg Q12H IV PUSH 12/22/16 10:00 01/01/17 09:53 Aspirin (Ecotrin Ec) 81 mg DAILY PO 12/23/16 09:00 Hold 12/25/16 08:06 Metoprolol Tartrate (Lopressor) 25 mg Q6HR PO 12/22/16 13:00 01/01/17 05:30 Furosemide 20 mg 20 mg DAILY IV PUSH 12/24/16 09:15 01/01/17 09:54 Propofol (Diprivan 1000 Mg/100ml Inj) 100 ml @ 0 mls/hr TITRATE IV 12/25/16 20:30 01/01/17 14:41 Magnesium Oxide 800 mg 800 mg UNSCH PRN PO For Magnesium 1.2 - 1.6 mg/dL 12/25/16 21:00 12/27/16 06:46 Potassium Chloride 100 ml @ 50 mls/hr Q2H PRN IV For Potassium 3.3 - 3.5 mEq/L 12/25/16 21:00 12/29/16 09:33 Sodium Phosphate/ Sodium Chloride (Sodium Phosphate Inj/NS 250 ml Inj) 250 ml @ 42 mls/hr UNSCH PRN IV For Phosphorus < 2.5 mg/dL 12/25/16 21:00 12/30/16 06:49 Chlorhexidine Gluconate (Peridex 0.12% Liq) 15 ml BID@08,20 MT 12/26/16 08:00 12/31/16 08:15 Insulin Human Regular 1 1 Q6HR SQ 12/26/16 00:00 01/01/17 00:43 Amiodarone HCl/ Dextrose (Cordarone Inj/ D5W ([place]) Inj) 250 ml @ 0 mls/hr CONTINUOUS IV 12/25/16 21:15 01/01/17 06:28 Clopidogrel Bisulfate (Plavix) 75 mg DAILY PO 12/29/16 09:00 01/01/17 09:52 Aspirin (Ecotrin Ec) 162 mg DAILY PO 12/29/16 09:00 01/01/17 09:52 Prednisone (Deltasone) 5 mg DAILY PO 12/29/16 09:00 01/01/17 09:49 Levothyroxine Sodium (Synthroid) 50 mcg DAILY@06 PO 12/30/16 06:00 01/01/17 05:30 Insulin Detemir 10 units 10 units Q12HR SQ 12/30/16 21:00 12/31/16 20:06 Diltiazem HCl 125 mg/Sodium Chloride 125 ml @ 0 mls/hr TITRATE IV 12/31/16 01:45 01/01/17 03:47 Vancomycin HCl 1000 mg/Sodium Chloride 250 ml @ 250 mls/hr ONCE ONCE IV 01/01/17 14:30 01/01/17 15:29 01/01/17 14:30 Cefepime HCl/ Sodium Chloride (Maxipime Inj/NS Inj) 100 ml @ 200 mls/hr Q12H IV 01/01/17 14:00 01/01/17 14:00 Objective Remarks GENERAL: Sedated and intubated older male. SKIN: Warm and dry. Cuong complexion. HEAD: Normocephalic. EYES: No injection or drainage. NECK: Supple, trachea midline. CARDIOVASCULAR: CM shows HR in the 80's, SR. CONCETTA drains to mid L chest. RESPIRATORY: Clear anteriorly. Mechanically ventilated. GASTROINTESTINAL: Abdomen soft, non-tender, nondistended. EXTREMITIES: No cyanosis. +anasarca NEUROLOGICAL: Sedated Assessment/Plan Problem List: (1) Esophageal adenocarcinoma Status: Acute Plan: --EUS with esophageal stent placement on 12/25 --++hemoptysis --we plan to give weekly Erbitux and XRT outpatient. --patient had OP EGD with biopsy, pathology showed adenocarcinoma. --EGD/Colonoscopy, 11/20/16--showed long stricture in the mid esophagus and distal esophagus, multiple biopsies were performed Pathology revealed invasive adenocarcinoma- distal esophagus --XRT simulation done 12/19. (2) SCC (squamous cell carcinoma) Status: Acute Plan: --has a head and neck, lung malignancy which was locally advanced. --received definitive treatment with surgery. Post surgery he had positive margins and some poor risk features and he was about to get concurrent chemotherapy and radiation and adjuvantly to achieve local control of the disease --PET scan to stage his disease prior to treatment showed an esophageal mass (3) Normocytic anemia Status: Acute Plan: --hgb stable but now patient has worsening hemoptysis/hematemesis, likely d/t esophageal mass --transfuse packed red blood cells if his hemoglobin drops below 8. --s/p iron infusion (4) NSTEMI (non-ST elevated myocardial infarction) Status: Acute Plan: --had elevated troponin and ST-segment changes consistent with acute [place]. --s/p cardiac cath, stent placement to proximal left circumflex --cardiology following --on plavix and ASA (5) Afib Status: Acute Plan: --cardiology following. --on Cardizem and Amiodarone --on Plavix and ASA (6) Sepsis Status: Resolved Plan: BC, 7.24 no growth BC, 12/07 no growth --BC, 12/05 +, S. Aureus --had removal of port, + S. 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 Also with a new diagnosis of early stage gastric cancer Plan 1. Pericardial drain placement today 2. Monitor CBC 3. Transfuse to keep hemoglobin greater than 8.5 Attending Statement The exam, history, and the medical decision-making described in the above note were completed with the assistance of the mid-level provider. I reviewed and agree with the findings presented. I attest that I had a [id number] encounter with the patient on the same day, and personally performed and documented my assessment and findings in the medical record. Problem Qualifiers (1) Afib: Qualified Code: I48.91 - Atrial fibrillation, unspecified type (2) Sepsis: Qualified Code: A41.9 - Sepsis, due to unspecified organism Shey Flores Jan 01, 2017 15:30 Brant Bell MD Jan 01, 2017 22:49
[2017-01-01 15:58] LABS: PERICARDIAL FLUID PH 8.5
[2017-01-01 16:38] LABS: PERICARDIAL POLYS(SEGS) 99 %; PERICARDIAL RBC 187029 /MM3 (0-0); PERICARDIAL WBC 5170 /MM3 (0-10)
[2017-01-01 16:39] LABS: PERICARDIAL LYMPHS 1 %
[2017-01-01] MEDS: CHLORHEXIDINE 0.12% (ORAL KIT) 15 ML CUP MT SCH ×3 (20:00→20:30)
[2017-01-02] VITALS (19 sets, daily range): BP systolic 102–114; BP diastolic 51–59; PULSE 69–78; RESP 16; TEMP 98.8–100.9; O2SAT 96–100
[2017-01-02] MEDS: fentaNYL DRIP 250 ML IV SCH ×2 (03:01→16:17)
[2017-01-02] MEDS: CEFEPIME INJ 2,000 MG in SODIUM CHLORIDE 0.9% INJ 100 ML IV SCH ×2 (03:01→13:39)
[2017-01-02] MEDS: RESP: ALBUTEROL 2.5 MG/IPRATROPIUM 0.5 MG NEB (SCH) INH ×2 (03:15→08:17)
[2017-01-02] MEDS: PROPOFOL 1000 MG/100 ML INJ 100 ML IV SCH ×5 (03:57→21:08)
[2017-01-02 05:36] LABS: AUTOMATED NEUTROPHIL # 10.8 TH/MM3 (1.8-7.7); BASOPHIL # 0.1 TH/MM3 (0-0.2); BASOPHIL % 0.9 % (0.0-2.0); EOSINOPHIL # 0.1 TH/MM3 (0-0.4); EOSINOPHIL % 0.9 % (0.0-4.0); HEMATOCRIT 27.8 % (39.0-51.0); HEMO FLAGS DIFF FINAL; LYMPH % 10.1 % (9.0-44.0); LYMPHOCYTE # 1.3 TH/MM3 (1.0-4.8); MEAN CELL VOLUME 86.8 FL (80.0-100.0); MEAN CORPUSCULAR HEMOGLOBIN 28.4 PG (27.0-34.0); MEAN CORPUSCULAR HGB CONC 32.7 % (32.0-36.0); MONO % 7.2 % (0.0-8.0); NEUT % 80.9 % (16.0-70.0); PLATELET COUNT 318 TH/MM3 (150-450); RED BLOOD COUNT 3.21 MIL/MM3 (4.50-5.90); RED CELL DISTRIBUTION WIDTH 19.1 % (11.6-17.2); WHITE BLOOD COUNT 13.3 TH/MM3 (4.0-11.0)
[2017-01-02 05:57] LABS: ALT (GPT) 12 U/L (12-78); ANION GAP 8 MEQ/L (5-15); AST (GOT) 28 U/L (15-37); BICARBONATE 34.2 MEQ/L (21.0-32.0); BLOOD UREA NITROGEN 17 MG/DL (7-18); CHLORIDE 89 MEQ/L (98-107); GLOMERULAR FILTRATION RATE 119 ML/MIN (>89); POTASSIUM 3.3 MEQ/L (3.5-5.1); SODIUM (NA) 131 MEQ/L (136-145)
[2017-01-02] MEDS: METOPROLOL TARTRATE 25 MG TAB PO SCH ×3 (06:00→18:00)
[2017-01-02] MEDS: LEVOTHYROXINE SODIUM 50 MCG TAB PO SCH (06:00)
[2017-01-02] MEDS: INSULIN NovoLIN REGULAR SUPPLEMENTAL SCALE SQ SCH ×4 (06:00→18:00)
[2017-01-02 06:03] LABS: ALKALINE PHOSPHATASE 91 U/L (45-117); TOTAL BILIRUBIN ADULT 0.5 MG/DL (0.2-1.0)
[2017-01-02] MEDS: SUCRALFATE 1 GM/10 ML CUP PO SCH ×4 (06:51→21:00)
[2017-01-02] MEDS: FUROSEMIDE 20 MG/2 ML VIAL IV PUSH SCH (07:55)
[2017-01-02] MEDS: SODIUM CHLORIDE 0.9% FLUSH 10 ML FLUSH IV FLUSH SCH ×3 (07:55→21:08)
[2017-01-02] MEDS: CHLORHEXIDINE 0.12% (ORAL KIT) 15 ML CUP MT SCH ×4 (07:55→21:08)
[2017-01-02] MEDS: predniSONE 5 MG TAB PO SCH (07:56)
[2017-01-02] MEDS: ASPIRIN EC 81 MG TABEC PO SCH (07:56)
[2017-01-02] MEDS: CLOPIDOGREL 75 MG TAB PO SCH (07:57)
[2017-01-02] MEDS: MULTIVITAMIN TAB PO SCH (07:57)
[2017-01-02] MEDS: POLYETHYLENE GLYCOL 17 GM PKG PO SCH (07:57)
[2017-01-02] MEDS: RIFAMPIN 150 MG CAP PO SCH ×2 (07:57→21:00)
[2017-01-02] MEDS: DOCUSATE SODIUM 50 MG/SENNA 8.6 MG TAB PO SCH ×2 (07:57→21:00)
[2017-01-02] MEDS: THIAMINE HCL 100 MG TAB PO SCH (07:58)
[2017-01-02] MEDS: INSULIN DETEMIR 100 UNITS/ML VIAL SQ SCH ×2 (07:59→21:00)
[2017-01-02] MEDS: POTASSIUM CHLOR 40 MEQ PREMIX 100 ML IV PRN (08:16)
[2017-01-02] MEDS: PANTOPRAZOLE SODIUM 40 MG VIAL IV PUSH SCH ×2 (10:28→21:08)
--- NOTE | 2017-01-02 13:47 | PD.ONC.PN ---
Subjective Subjective Remarks Tmax 100.9 overnight. Patient intubated, sedated. Objective Data Date Time Temp Pulse Resp B/P Pulse Ox O2 Delivery O2 Flow Rate FiO2 01/02/17 12:00 99.8 71 16 106/59 99 01/02/17 12:00 71 01/02/17 11:52 98 35 01/02/17 10:00 76 01/02/17 08:12 98 35 01/02/17 08:00 99.7 74 16 98 112/57 01/02/17 08:00 98 Mechanical Ventilator 35 01/02/17 08:00 74 01/02/17 06:00 78 01/02/17 04:00 76 01/02/17 04:00 100.1 76 16 102/53 97 01/02/17 03:16 96 35 01/02/17 02:00 75 01/02/17 00:07 97 40 01/02/17 00:00 100.9 78 16 103/51 97 01/02/17 00:00 78 01/01/17 22:00 76 01/01/17 20:51 99 45 01/01/17 20:00 75 01/01/17 20:00 98 Mechanical Ventilator 50 01/01/17 20:00 98.3 78 16 112/56 100 01/01/17 18:00 107 01/01/17 16:00 77 01/01/17 16:00 98.0 75 16 112/56 100 01/01/17 15:19 100 50 01/01/17 14:00 77 01/02/17 01/02/17 01/02/17 06:59 14:59 22:59 Intake Total 850 ml Output Total 460 ml Balance 390 ml Result Diagram: 01/02/1715 01/02/1715 Laboratory Results Laboratory Tests Test 01/02/17 05:15 White Blood Count 13.3 TH/MM3 Red Blood Count 3.21 MIL/MM3 Hemoglobin 9.1 GM/DL Hematocrit 27.8 % Mean Corpuscular Volume 86.8 FL Mean Corpuscular Hemoglobin 28.4 PG Mean Corpuscular Hemoglobin 32.7 % Concent Red Cell Distribution Width 19.1 % Platelet Count 318 TH/MM3 Mean Platelet Volume 7.8 FL Neutrophils (%) (Auto) 80.9 % Lymphocytes (%) (Auto) 10.1 % Monocytes (%) (Auto) 7.2 % Eosinophils (%) (Auto) 0.9 % Basophils (%) (Auto) 0.9 % Neutrophils # (Auto) 10.8 TH/MM3 Lymphocytes # (Auto) 1.3 TH/MM3 Monocytes # (Auto) 1.0 TH/MM3 Eosinophils # (Auto) 0.1 TH/MM3 Basophils # (Auto) 0.1 TH/MM3 CBC Comment DIFF FINAL Differential Comment Sodium Level 131 MEQ/L Potassium Level 3.3 MEQ/L Chloride Level 89 MEQ/L Carbon Dioxide Level 34.2 MEQ/L Anion Gap 8 MEQ/L Blood Urea Nitrogen 17 MG/DL Creatinine 0.68 MG/DL Estimat Glomerular Filtration 119 ML/MIN Rate Random Glucose 120 MG/DL Calcium Level 7.8 MG/DL Total Bilirubin 0.5 MG/DL Aspartate Amino Transf 28 U/L (AST/SGOT) Alanine Aminotransferase 12 U/L (ALT/SGPT) Alkaline Phosphatase 91 U/L Total Protein 5.5 GM/DL Albumin 1.2 GM/DL Culture Results Microbiology Date/Time Procedure Status Source Growth 12/30/16 15:58 Gram Stain - Final Complete Fluid Pleural Fluid 12/30/16 15:58 Body Fluid Culture - Final Complete Fluid Pleural Fluid NO GROWTH IN 72 HRS.--AEROBICALLY OR ... 12/30/16 15:58 Acid Fast Stain - Final Resulted Fluid Pleural Fluid NO ACID FAST BACILLI SEEN 12/30/16 15:58 Mycobacterial Culture Resulted Fluid Pleural Fluid Pending 12/30/16 15:58 Fungal Smear - Final Resulted Fluid Pleural Fluid NO FUNGAL ELEMENTS SEEN. 12/30/16 15:58 Fungal Culture Resulted Fluid Pleural Fluid Pending 01/01/17 11:30 Gram Stain - Final Resulted Fluid Pericardial Fluid 01/01/17 11:30 Body Fluid Culture Resulted Fluid Pericardial Fluid Pending 01/02/17 05:50 Aerobic Blood Culture Received Blood Peripheral Pending 01/02/17 05:50 Anaerobic Blood Culture Received Blood Peripheral Pending 01/02/17 06:00 Aerobic Blood Culture Received Blood Peripheral Pending 01/02/17 06:00 Anaerobic Blood Culture Received Blood Peripheral Pending Administered Medications Medications (Trade) Dose Ordered Sig/Geovanny Route PRN Reason Start Time Stop Time Status Last Admin Dose Admin Sodium Chloride (NS Flush) 2 ml UNSCH PRN IV FLUSH FLUSH AFTER USING IV ACCESS 11/30/16 02:45 12/24/16 09:59 Sodium Chloride (NS Flush) 2 ml BID IV FLUSH 11/30/16 09:00 01/01/17 23:38 Oxycodone HCl (Roxicodone) 5 mg Q4H PRN PO PAIN SCALE 3 TO 5 11/30/16 02:45 12/31/16 18:24 Senna/Docusate Sodium (Rere-Colace) 1 tab BID PO 11/30/16 09:00 01/01/17 09:52 Acetaminophen (Tylenol) 325 mg Q4H PRN PO PAIN SCALE 1 TO 2 11/30/16 13:45 12/13/16 17:13 Clopidogrel Bisulfate (Plavix) 75 mg DAILY PO 12/01/16 09:00 Hold 12/25/16 08:06 Ondansetron HCl (Zofran Inj) 4 mg Q4H PRN IV NAUSEA 11/30/16 13:45 12/24/16 22:41 Sodium Chloride (NS Flush) 5 ml Q21D IV FLUSH 11/30/16 18:00 12/21/16 17:19 Heparin Sodium (Porcine) (Heparin Central Flush) 500 units Q21D IV FLUSH 11/30/16 18:00 11/30/16 18:04 Acetaminophen (Tylenol 650 Mg/ 20 ml Liq) 650 mg Q6H PRN PO FEVER 12/01/16 17:30 12/02/16 01:07 Polyethylene Glycol (Miralax) 17 gm DAILY PO 12/04/16 09:00 12/31/16 09:08 Thiamine HCl (Vitamin B1) 100 mg DAILY PO 12/05/16 09:00 01/01/17 09:53 Multivitamins (Theragran) 1 tab DAILY PO 12/05/16 09:00 01/01/17 09:53 Folic Acid (Folate) 1 mg DAILY PO 12/05/16 09:00 Hold 12/25/16 08:07 Rifampin (Rifampin) 300 mg Q12HR PO 12/06/16 09:15 01/15/17 23:00 01/01/17 09:52 Lorazepam (Ativan Inj) 1 mg Q4H PRN IV PUSH ANXIETY AND/OR AGITATION 12/09/16 15:15 12/31/16 14:16 Atorvastatin Calcium (Lipitor) 40 mg HS PO 12/12/16 21:00 Hold 12/24/16 21:00 Sodium Chloride (NS Flush) See Protocol DAILY IV FLUSH 12/13/16 09:00 12/27/16 08:04 Heparin Sodium (Porcine) (Heparin Central Flush) See Protocol DAILY IV FLUSH 12/13/16 09:00 12/27/16 08:05 Sodium Chloride (NS Flush) UNSCH PRN IV FLUSH SEE PROTOCOL TABLE 12/12/16 17:00 12/19/16 01:59 Lorazepam (Ativan) 0.5 mg DAILY PRN PO ANXIETY 12/18/16 15:45 Hold 12/19/16 08:29 Diltiazem HCl (Cardizem) 90 mg Q6H PO 12/18/16 23:00 Hold 12/25/16 12:14 Oxycodone HCl (Roxicodone) 15 mg Q4H PRN PO PAIN 6-10 12/21/16 11:00 12/31/16 19:51 Digoxin (Lanoxin) 0.25 mg DAILY PO 12/22/16 09:00 Hold 12/25/16 08:06 Sucralfate (Carafate Liq) 1 gm ACHS PO 12/22/16 11:00 01/01/17 09:53 Metoprolol Tartrate (Lopressor Inj) 5 mg Q1HR PRN IV PUSH RAPID HEART RATE 12/22/16 09:45 12/30/16 10:37 Pantoprazole Sodium (Protonix Inj) 40 mg Q12H IV PUSH 12/22/16 10:00 01/02/17 10:28 Aspirin (Ecotrin Ec) 81 mg DAILY PO 12/23/16 09:00 Hold 12/25/16 08:06 Metoprolol Tartrate (Lopressor) 25 mg Q6HR PO 12/22/16 13:00 01/01/17 05:30 Furosemide 20 mg 20 mg DAILY IV PUSH 12/24/16 09:15 01/02/17 07:55 Propofol (Diprivan 1000 Mg/100ml Inj) 100 ml @ 0 mls/hr TITRATE IV 12/25/16 20:30 01/02/17 10:28 Magnesium Oxide 800 mg 800 mg UNSCH PRN PO For Magnesium 1.2 - 1.6 mg/dL 12/25/16 21:00 12/27/16 06:46 Potassium Chloride 100 ml @ 50 mls/hr Q2H PRN IV For Potassium 3.3 - 3.5 mEq/L 12/25/16 21:00 12/29/16 09:33 Potassium Chloride 100 ml @ 25 mls/hr UNSCH PRN IV For Potassium 3.3 - 3.5 mEq/L 12/25/16 21:00 01/02/17 08:16 Sodium Phosphate/ Sodium Chloride (Sodium Phosphate Inj/NS 250 ml Inj) 250 ml @ 42 mls/hr UNSCH PRN IV For Phosphorus < 2.5 mg/dL 12/25/16 21:00 12/30/16 06:49 Chlorhexidine Gluconate (Peridex 0.12% Liq) 15 ml BID@08,20 MT 12/26/16 08:00 01/02/17 07:55 Insulin Human Regular 1 1 Q6HR SQ 12/26/16 00:00 01/01/17 00:43 Amiodarone HCl/ Dextrose (Cordarone Inj/ D5W ([place]) Inj) 250 ml @ 0 mls/hr CONTINUOUS IV 12/25/16 21:15 01/01/17 06:28 Clopidogrel Bisulfate (Plavix) 75 mg DAILY PO 12/29/16 09:00 01/01/17 09:52 Aspirin (Ecotrin Ec) 162 mg DAILY PO 12/29/16 09:00 01/01/17 09:52 Prednisone (Deltasone) 5 mg DAILY PO 12/29/16 09:00 01/01/17 09:49 Levothyroxine Sodium (Synthroid) 50 mcg DAILY@06 PO 12/30/16 06:00 01/01/17 05:30 Insulin Detemir 10 units 10 units Q12HR SQ 12/30/16 21:00 12/31/16 20:06 Diltiazem HCl/ Sodium Chloride (Cardizem Inj/NS Inj) 125 ml @ 0 mls/hr TITRATE IV 12/31/16 01:45 01/01/17 03:47 Chlorhexidine Gluconate 15 ml 15 ml BID@08,20 MT 01/01/17 20:00 01/01/17 20:00 Fentanyl Citrate 250 ml @ 0 mls/hr TITRATE IV 01/01/17 10:45 01/02/17 03:01 Cefepime HCl/ Sodium Chloride (Maxipime Inj/NS Inj) 100 ml @ 200 mls/hr Q12H IV 01/01/17 14:00 01/02/17 13:39 Objective Remarks GENERAL: Chronically ill-appearing male intubated, sedated SKIN: Warm and dry. HEAD: Normocephalic. EYES: No injection or drainage. NECK: Supple, trachea midline. CARDIOVASCULAR: +S1/S2. CONCETTA drains in center of chest with SS drainage. RESPIRATORY: anterior ray clear. on mechanical ventilation. GASTROINTESTINAL: Abdomen nondistended. EXTREMITIES: No cyanosis. NEUROLOGICAL: sedated Assessment/Plan Problem List: (1) Esophageal adenocarcinoma Status: Acute Plan: --EUS with esophageal stent placement on 12/25 --++hemoptysis --we plan to give weekly Erbitux and XRT outpatient. --patient had OP EGD with biopsy, pathology showed adenocarcinoma. --EGD/Colonoscopy, 11/20/16--showed long stricture in the mid esophagus and distal esophagus, multiple biopsies were performed Pathology revealed invasive adenocarcinoma- distal esophagus --XRT simulation done 12/19. (2) SCC (squamous cell carcinoma) Status: Acute Plan: --has a head and neck, lung malignancy which was locally advanced. --received definitive treatment with surgery. Post surgery he had positive margins and some poor risk features and he was about to get concurrent chemotherapy and radiation and adjuvantly to achieve local control of the disease --PET scan to stage his disease prior to treatment showed an esophageal mass (3) Normocytic anemia Status: Acute Plan: --hgb stable --transfuse packed red blood cells if his hemoglobin drops below 8.5 --s/p iron infusion (4) Afib Status: Acute Plan: --cardiology following. --s/p Pericardiocentesis and pericardial drainage tube placement on 01.01 --on Plavix and ASA (on hold) (5) Sepsis Status: Resolved Plan: --BC 01.02: pending BC, 12.08 no growth BC, 12/07 no growth --BC, 12/05 +, S. Aureus --had removal of port, + S. aureus --on Cefepime (6) NSTEMI (non-ST elevated myocardial infarction) Status: Acute Plan: --had elevated troponin and ST-segment changes consistent with acute [place]. 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 Also with a new diagnosis of early stage gastric cancer Plan 1. monitor CBC 2. supportive care Attending Statement The exam, history, and the medical decision-making described in the above note were completed with the assistance of the mid-level provider. I reviewed and agree with the findings presented. I attest that I had a [id number] encounter with the patient on the same day, and personally performed and documented my assessment and findings in the medical record. Problem Qualifiers (1) Afib: Qualified Code: I48.91 - Atrial fibrillation, unspecified type (2) Sepsis: Qualified Code: A41.9 - Sepsis, due to unspecified organism Perla Duran Jan 02, 2017 13:47 Brant Bell MD Jan 02, 2017 22:43
--- NOTE | 2017-01-02 14:16 | HHI.IDPN ---
Subjective Subjective Remarks Patient is a 61-year-old male, currently lethargic, and unable to give any history. History has been obtained from the chart. 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 It was reportedly malignant as well. He presented to the hospital complaining of generalized weakness, abdominal pain and progressive swallowing difficulty over the last 3 weeks. Evaluation in the emergency room revealed abnormal EKG, and he underwent cardiac catheterization. He had non-ST OH, and had revascularization with stent placement of his left circumflex artery. Patient is spiked to 103, and there were 2 blood cultures done yesterday that are now reported as growing staph aureus. Patient currently has a Saxena catheter. There is a lot of sediment in his urine, and his urine culture is also showing staph aureus. CT of the abdomen and pelvis did not show any abnormality except the soft tissue mass in the esophagus. He had atherosclerosis of his vasculature. There was also evidence of possible liver cirrhosis. Patient is being evaluated for chemotherapy and radiation, but he has not been started. He had an [id number] placement on November 12 on his right upper chest. Notes reviewed D/W RN Temps low grade Sedated on the vent On pressors Has drain in pericardium - fluid exudative Not a lot of ET secretions Antibiotics Cefepime Rifampin Lines Port - removed 12/02 PICC Past Medical History Hypertension Hyperlipidemia CAD Diabetes 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 and he had good margins Recurrent squamous cell carcinoma on the left face, with involvement of the parotid gland, status post surgery at [facility] Recently found to have esophageal mass Past Surgical History Appendectomy Liver Biopsy Resection of a squamous cell carcinoma on the left cheek in 2011 Extensive surgery on the left face and neck for recurrent squamous cell carcinoma Port Placement November 12, 2016 Allergies: Coded Allergies: penicillin G (Unverified Allergy, Mild, Hives, 12/30/16) Objective . Vital Signs Date Time Temp Pulse Resp B/P Pulse Ox O2 Delivery O2 Flow Rate FiO2 01/02/17 13:54 100 35 01/02/17 12:00 99.8 71 16 106/59 99 01/02/17 12:00 71 01/02/17 11:52 98 35 01/02/17 10:00 76 01/02/17 08:12 98 35 01/02/17 08:00 99.7 74 16 98 112/57 01/02/17 08:00 98 Mechanical Ventilator 35 01/02/17 08:00 74 01/02/17 06:00 78 01/02/17 04:00 76 01/02/17 04:00 100.1 76 16 102/53 97 01/02/17 03:16 96 35 01/02/17 02:00 75 01/02/17 00:07 97 40 01/02/17 00:00 100.9 78 16 103/51 97 01/02/17 00:00 78 01/01/17 22:00 76 01/01/17 20:51 99 45 01/01/17 20:00 75 01/01/17 20:00 98 Mechanical Ventilator 50 01/01/17 20:00 98.3 78 16 112/56 100 01/01/17 18:00 107 01/01/17 16:00 77 01/01/17 16:00 98.0 75 16 112/56 100 01/01/17 15:19 100 50 01/01/17 01/01/17 01/02/17 15:00 23:00 07:00 Intake Total 765 ml 1581 ml 850 ml Output Total 1200 ml 2220 ml 460 ml Balance -435 ml -639 ml 390 ml IV Total 765 ml 1285 ml 649 ml Lipid 296 ml 201 ml Output Urine Total 950 ml 2200 ml 450 ml Drainage Total 250 ml 20 ml 10 ml # Bowel Movements 0 . Laboratory Tests Test 01/01/17 01/02/17 05:00 05:15 White Blood Count 13.3 TH/MM3 13.3 TH/MM3 Red Blood Count 3.25 MIL/MM3 3.21 MIL/MM3 Hemoglobin 9.1 GM/DL 9.1 GM/DL Hematocrit 28.4 % 27.8 % Mean Corpuscular Volume 87.3 FL 86.8 FL Mean Corpuscular Hemoglobin 28.0 PG 28.4 PG Mean Corpuscular Hemoglobin 32.1 % 32.7 % Concent Red Cell Distribution Width 19.3 % 19.1 % Platelet Count 207 TH/MM3 318 TH/MM3 Mean Platelet Volume 7.8 FL 7.8 FL Neutrophils (%) (Auto) 80.9 % Lymphocytes (%) (Auto) 10.1 % Monocytes (%) (Auto) 7.2 % Eosinophils (%) (Auto) 0.9 % Basophils (%) (Auto) 0.9 % Neutrophils # (Auto) 10.8 TH/MM3 Lymphocytes # (Auto) 1.3 TH/MM3 Monocytes # (Auto) 1.0 TH/MM3 Eosinophils # (Auto) 0.1 TH/MM3 Basophils # (Auto) 0.1 TH/MM3 CBC Comment DIFF FINAL Differential Comment Laboratory Tests Test 01/01/17 01/02/17 05:00 05:15 Sodium Level 127 MEQ/L 131 MEQ/L Potassium Level 3.7 MEQ/L 3.3 MEQ/L Chloride Level 84 MEQ/L 89 MEQ/L Carbon Dioxide Level 37.0 MEQ/L 34.2 MEQ/L Anion Gap 6 MEQ/L 8 MEQ/L Blood Urea Nitrogen 16 MG/DL 17 MG/DL Creatinine 0.64 MG/DL 0.68 MG/DL Estimat Glomerular Filtration 128 ML/MIN 119 ML/MIN Rate Random Glucose 124 MG/DL 120 MG/DL Calcium Level 7.5 MG/DL 7.8 MG/DL Total Bilirubin 0.5 MG/DL Aspartate Amino Transf 28 U/L (AST/SGOT) Alanine Aminotransferase 12 U/L (ALT/SGPT) Alkaline Phosphatase 91 U/L Total Protein 5.5 GM/DL Albumin 1.2 GM/DL Microbiology Date/Time Procedure Status Source Growth 12/30/16 15:58 Gram Stain - Final Complete Fluid Pleural Fluid 12/30/16 15:58 Body Fluid Culture - Final Complete Fluid Pleural Fluid NO GROWTH IN 72 HRS.--AEROBICALLY OR ... 12/30/16 15:58 Acid Fast Stain - Final Resulted Fluid Pleural Fluid NO ACID FAST BACILLI SEEN 12/30/16 15:58 Mycobacterial Culture Resulted Fluid Pleural Fluid Pending 12/30/16 15:58 Fungal Smear - Final Resulted Fluid Pleural Fluid NO FUNGAL ELEMENTS SEEN. 12/30/16 15:58 Fungal Culture Resulted Fluid Pleural Fluid Pending 01/01/17 11:30 Gram Stain - Final Resulted Fluid Pericardial Fluid 01/01/17 11:30 Body Fluid Culture Resulted Fluid Pericardial Fluid Pending 01/02/17 05:50 Aerobic Blood Culture Received Blood Peripheral Pending 01/02/17 05:50 Anaerobic Blood Culture Received Blood Peripheral Pending 01/02/17 06:00 Aerobic Blood Culture Received Blood Peripheral Pending 01/02/17 06:00 Anaerobic Blood Culture Received Blood Peripheral Pending Imaging Chest X-Ray 01/01/17 0000 Signed Impressions: Service Date/Time: December 12:33 - CONCLUSION: 1. Improving diffuse parenchymal infiltrate. 2. Esophageal stent and PICC in good position. 3. There is a pericardial drain present. Benjamin Pollock MD Chest X-Ray 12/31/16 0600 Signed Impressions: Service Date/Time: Saturday, December 31, 2016 03:30 - CONCLUSION: Increasing consolidative infiltrates in the right lower lung, persistence patchy infiltrates in the right upper lung and persistent dense consolidation of the left lower lung. Kulwant Gupta MD CT Angiography 12/31/16 0000 Signed Impressions: Service Date/Time: Saturday, December 31, 2016 01:00 - CONCLUSION: 1. Study is negative for pulmonary embolism. 2. Pericardial effusion, diffuse patchy consolidation in both lungs, collapse left lower lobe, bilateral pleural effusions, esophageal stent, similar to yesterday's CT thorax. Kulwant Gupta MD Last 48 hours Impressions Chest X-Ray 12/26/16 0600 Signed Impressions: Service Date/Time: Monday, December 26, 2016 03:45 - CONCLUSION: Improving pulmonary edema and effusions, now mild/small. Unchanged moderate cardiomegaly. Washington Beasley MD GI Procedure 12/25/16 0000 Signed Impressions: Service Date/Time: December 19:33 - CONCLUSION: Spot film as above. Everett Pollock MD FACR Chest X-Ray 12/25/16 0000 Signed Impressions: Service Date/Time: December 20:28 - CONCLUSION: ET in good position; increasing congestive failure. Everett Pollock MD FACR Chest X-Ray 12/05/16 0600 Signed Impressions: Service Date/Time: Monday, December 05, 2016 03:30 - CONCLUSION: 1. Cardiomegaly and findings of vascular congestion without overt failure. There has been no significant change when compared to the prior exam. Bobby Matias MD Head CT 12/01/16 0000 Signed Impressions: Service Date/Time: Thursday, December 01, 2016 07:59 - CONCLUSION: 1. Questionable area of low attenuation left temporal lobe could be artifact versus less likely infarct. MRI may be warranted based on clinical history. 2. No midline shift or mass effect. 3. No intraparenchymal hemorrhage. Jagjit Tapia MD Brain MRI 12/01/16 0000 Signed Impressions: Service Date/Time: Thursday, December 01, 2016 12:07 - CONCLUSION: Normal examination. Barrett Rodriguez MD Abdomen X-Ray 12/01/16 0000 Signed Impressions: Service Date/Time: Thursday, December 01, 2016 16:48 - CONCLUSION: No evidence of obstruction. Feeding tube tip in the distal stomach. Barrett Rodriguez MD Abdomen/Pelvis CT 11/29/16 2356 Signed Impressions: Service Date/Time: Wednesday, November 30, 2016 01:35 - CONCLUSION: 1. Markedly abnormal appearance of the distal esophagus consistent with the history of esophageal carcinoma. 2. Atherosclerotic calcifications of the aorta and iliac vessels. 3. Cirrhotic appearance to the liver with a mildly nodular contour present. Erik Simon MD CT Angiography 11/29/16 2348 Signed Impressions: Service Date/Time: Wednesday, November 30, 2016 01:35 - CONCLUSION: 1. No evidence for pulmonary embolism or pneumonia. 2. Abnormal appearance of the esophagus with and soft tissue consistent with the history of carcinoma. Erik Simon MD Chest X-Ray 12/03/16 0600 Signed Impressions: Service Date/Time: Saturday, December 03, 2016 04:43 - CONCLUSION: Increasing consolidation in the left lower lung. Bilateral interstitial changes. Niko Wilcox MD Chest X-Ray 12/03/16 0000 Signed Impressions: Service Date/Time: Saturday, December 03, 2016 07:48 - CONCLUSION: 1. Persistent left retrocardiac density and slight interstitial prominence. Jagjit Tapia MD Chest X-Ray 12/02/16 0000 Signed Impressions: Service Date/Time: Friday, December 02, 2016 15:55 - CONCLUSION: Normal examination with endotracheal tube and central lines in good position. Barrett Rodriguez MD Chest X-Ray 12/02/16 0000 Signed Impressions: Service Date/Time: Friday, December 02, 2016 08:24 - CONCLUSION: Mild perihilar vascular congestion. Endotracheal tube is in good position Barrett Rodriguez MD Chest X-Ray 12/02/16 0000 Signed Impressions: Service Date/Time: Friday, December 02, 2016 06:53 - CONCLUSION: Underinflated examination with atelectasis at the lung bases. Given the technique, no acute abnormality or significant interval change is appreciated. Washington Marroquin MD Physical Exam GENERAL: Sedated on the vent. SKIN: Warm and dry. No generalized rash EYES: . No scleral icterus. No injection or drainage. EARS, NOSE AND THROAT: Nose without bleeding or purulent nasal discharge. Orally intubated. NECK: Trachea midline. Supple and not tender, no meningeal signs CARDIOVASCULAR: Irregular rate and rhythm, HR 129. There is a coarse systolic murmur at base of the heart, no as loud. No rub. RESPIRATORY: Some rhonchi on R. Intact dressing R chest. Drain in place, pericardial space ABDOMEN: Soft, not distended, not tender. Bowel sounds present and normoactive. No organomegaly. EXTREMITIES: No clubbing, cyanosis. Has pitting BLE edema, weeping. No calf tenderness. Well perfused and warm. NEUROLOGICAL: Sedated PSYCHIATRIC: unable to assess LINE: Dry dressing on previous port site, healing. PICC site ok : Saxena in place Assessment & Plan Remarks IMPRESSION Respiratory failure - ?new PNA - CHF - S/P RX GNR PNA Recurrent shock MSSA sepsis due to port infection, removed - S/P removal port 12/02 - last (+) BC 12/05 Recurrent squamous cell CA Esophageal CA, S/P EUS and stent placement Lethargy and SOB due to sepsis, resolved - has acidosis, resolved Renal insufficiency, due to sepsis and shock, better Atrial fib, rate still goes up and down New murmur - last echo with new "pseudo" outflow tract obstruction, ?this is source RECOMMENDATION Continue Rifampin, for synergy vs MSSA - follow LFT Continue Cefepime He will need 6 weeks IV Abx - anticipated end date Jan 15 (6 weeks from last +BC) Labs weekly while on Abx: CBC, creatinine and LFT - will have HEPAS order and monitor - call if abnormal and with questions Follow new C/S Give another Vanco dose - check level in AM D/W Carola Dick MD Jan 02, 2017 14:15
[2017-01-02] MEDS ORDERED: VANCOMYCIN INJ 1,000 MG in SODIUM CHLOR 0.9% 250 ML INJ 250 ML IV ONE (14:30)
[2017-01-02] MEDS: RESP: ALBUTEROL 2.5 MG/IPRATROPIUM 0.5 MG NEB (PRN) INH ×2 (16:04→19:29)
--- NOTE | 2017-01-02 17:34 | HHI.CCPN ---
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 He was hypotensive, febrile up to 101 and received IV fluid resuscitation with improvement in his blood pressure. EKG showed ST-T wave changes, and troponin was elevated and peaked at 17.1. The patient has been evaluated by cardiology. For NSTEMI patient underwent PCI with bare metal stent to LCx by Dr. Krause on 11/30/16. The patient had a CT of the abdomen and pelvis on admission which showed marked soft tissue thickening in the distal esophagus concerning for esophageal cancer. The patient was also noted to have liver cirrhosis and mild splenomegaly. Patient has a history of alcohol intake but according to the girlfriend has not had alcoholic drinks for several months. CTA no evidence of pulmonary embolism or pneumonia. Critical care was consulted today for altered mentation, persistent fever, MSSA bacteremia and worsening sepsis. Apparently patient was agitated overnight requiring restraints. He also sustained a fall when he tried to climb out of the bed. CT of the head was negative except for a possible artifact left temporal region. An MRI which was done today came back negative. On my evaluation the ICU patient was very lethargic and tachypneic breathing approximately 35-40. ABG showed respiratory alkalosis. His altered mentation is most likely secondary to severe sepsis, alcohol withdrawal seems less likely. Blood cultures 4/4 growing MSSA, lactic acid 3,6. 12/25: Today underwent EGD with esophageal stent placement. significant bleeding from distal esophagus. GI and anesthesia felt patient should remain intubated for airway protection. In addition, patient persistently hypotensive requiring vasopressors, phenylephrine at 100 mcg/min, and in a flutter RVR on diltiazem drip. On my evaluation, patient was becoming more unstable. Adenosine 6mg iv x 1 was given which confirmed the rhythm as a flutter, but did not convert patient. give that patient was not anticoagulated, risk/benefit of electrical cardioversion at that time was in favor of conservative measures. patient bolused with amiodarone and placed on amiodarone drip, along with aggressive electrolyte replacement. Of note, patient also has new documented diagnosis of dynamic LVOT obstruction due to his LV hypertrophy and hyperdynamic cardiac function. Critical care medicine re-consulted to evaluate and manage his respiratory failure and cardiac dysrhythmias. 12/26: No more bleeding. Will work to extubate and start liquids, continue oral meds, especially beta gutierrez. 12/29: Reconsulted due to A. fib with RVR. Currently on 5 L simple mask. On amiodarone and Cardizem drips. Looks like some pulmonary edema will be actively diuresed. 12/30: Remains in A. fib with RVR. Currently on 10 L simple mask. Continues on amiodarone drip at 0.5 mg per minute and Cardizem drip at 20 mg an hour. Despite diuresis, increasing oxygen requirements. 12/31: Good response to diuresis. Weight still up about 10 kg. Dense infiltrate right chest, increasing FiO2 requirements. 01/01: Continued respiratory failure. FiO2 70% in tight BiPAP with sats 88%. Labored respirations and poor peripheral perfusion. Will need left effusion and pericardium tapped. I predict problems with hypotension if we use sedation - will start neosynephrine then induce. I have discussed the risks of pericardiocentesis and thoracentesis in detail with the patient, especially increased arrhythmia risk, possibly fatal. Subjective 01/02: Resting comfortable in bed. FiO2 40%. Arousable and follows commands. Status post pericardiocentesis yesterday. 20 cc past 24 hours.. Objective Vital Signs Date Time Temp Pulse Resp B/P Pulse Ox O2 Delivery O2 Flow Rate FiO2 01/02/17 16:55 35 01/02/17 16:15 100 01/02/17 16:00 98.8 70 16 114/58 01/02/17 08:00 Mechanical Ventilator 12/31/16 20:03 15.00 Intake and Output 01/01/17 01/01/17 01/02/17 08:00 16:00 00:00 Intake Total 814 ml 765 ml 1581 ml Output Total 300 ml 1200 ml 2220 ml Balance 514 ml -435 ml -639 ml Result Diagram: 01/02/17 0515 01/02/17 0515 Other Results Microbiology Date/Time Procedure Status Source Growth 01/02/17 06:00 Aerobic Blood Culture Received Blood Peripheral Pending 01/02/17 06:00 Anaerobic Blood Culture Received Blood Peripheral Pending 01/01/17 11:30 Gram Stain - Final Resulted Fluid Pericardial Fluid 01/01/17 11:30 Body Fluid Culture - Preliminary Resulted Fluid Pericardial Fluid NO GROWTH IN 24 HOURS. 12/30/16 15:58 Fungal Smear - Final Resulted Fluid Pleural Fluid NO FUNGAL ELEMENTS SEEN. 12/30/16 15:58 Fungal Culture Resulted Fluid Pleural Fluid Pending 12/30/16 15:58 Acid Fast Stain - Final Resulted Fluid Pleural Fluid NO ACID FAST BACILLI SEEN 12/30/16 15:58 Mycobacterial Culture Resulted Fluid Pleural Fluid Pending Imaging Last 72 hours Impressions Chest X-Ray 01/01/17 0000 Signed Impressions: Service Date/Time: December 12:33 - CONCLUSION: 1. Improving diffuse parenchymal infiltrate. 2. Esophageal stent and PICC in good position. 3. There is a pericardial drain present. Benjamin Pollock MD Chest X-Ray 12/31/16 0600 Signed Impressions: Service Date/Time: Saturday, December 31, 2016 03:30 - CONCLUSION: Increasing consolidative infiltrates in the right lower lung, persistence patchy infiltrates in the right upper lung and persistent dense consolidation of the left lower lung. Kulwant Gupta MD CT Angiography 12/31/16 0000 Signed Impressions: Service Date/Time: Saturday, December 31, 2016 01:00 - CONCLUSION: 1. Study is negative for pulmonary embolism. 2. Pericardial effusion, diffuse patchy consolidation in both lungs, collapse left lower lobe, bilateral pleural effusions, esophageal stent, similar to yesterday's CT thorax. Kulwant Gupta MD Objective Remarks GENERAL: Patient is 61 yo male, currently orotracheally intubated SKIN: Warm and dry. Well perfused HEAD: Normocephalic. EYES: No scleral icterus. No injection or drainage. MOUTH: No bleeding. NECK: trachea midline. No JVD. No thrush CARDIOVASCULAR: Currently normal sinus rhythm.. S1, S2 no S4. Without murmurs , clicks, rubs RESPIRATORY: Was crackles appreciated bilaterally. GASTROINTESTINAL: Abdomen soft, non-tender, nondistended. MUSCULOSKELETAL: Trace bilateral lower extremity peripheral edema. Single lumen PICC line in left upper extremity. Neuro: Arousable and follows commands. Moves all 4 extremities spontaneous. Procedures central line/ arterial line placement intubation cardiac catheterization port removal EUS with esophageal stent placement A/P Assessment and Plan NEURO/Psych: Acute metabolic encephalopathy-improving Possible alcohol withdrawal - completed Chronic oxycodone use - Encephalopathy most likely secondary to hypoxia -Completed therapy with Thiamine, MVI for EtOH withdrawal Acetaminophen for fever Currently on propofol/fentanyl drips for sedation/analgesia while intubated Goal of RASS -2 Daily sedation vacation Oxycodone for pain management 5-10 every 4 hours when necessary holding tramadol/home medication RESP: Acute hypoxemic respiratory failure - multifactorial History COPD Anterior airway Tobacco abuse Bilateral pleural effusions - Emergently intubated and placed on mechanical ventilation 12/02/16, extubated successfully 12/03/16 - (Unable to visualize cords with direct laryngoscopy. With GlideScope #4 blade Grade 2 view, easy intubation) - DuoNeb every 6 hours scheduled and every 2 hours when necessary PRVC ventilation 16/550///[address] chest revealed bilateral pleural effusions. Thoracentesis -1200 cc 12/30. Will attempt to find a patient actually had left thoracentesis CV: Atrial fibrillation with RVR NSTEMI Dynamic LVOT obstruction Coronary artery disease status post bare metal stent to left circumflex Krause 12/01 Pericardial effusion status post pericardiocentesis Cardiac catheterization 12/01 revealed EF around 60%. Left main normal. RCA normal. LAD 70% ostial. Bare stent left circumflex 70%. - Continue ASA 162 mg daily/Plavix 75 mg daily Currently on amiodarone drip at 0.5 mg/m, Cardizem drip at 5 mg an hour and metoprolol 25 mill grams every [address] Adler - cardiology. Due to underlying multiple comorbidities not a candidate for ablation at this time. Recommend medical management - 2-D echo no veg, EF 50-55% Holding home medications of losartan 100 mg, amlodipine 10 mg daily. On atorvastatin 40 by mouth daily for dyslipidemia Pericardiocentesis drains -20 cc. Cultures no growth. GI: Invasive adenocarcinoma of the esophagus Liver cirrhosis - Dobhoff placed 12/02, cleared by speech for liquid diet. - GI following- has biopsy proven invasive adenoca of esophagus - Status post EUS/esophageal stent placement 12/25 - IV Protonix for twice a day continue. Carafate cannot be given secondary to the pass NG tube : Acute kidney failure/ATN resolved - Monitor renal function closely. Saxena catheter. -On Lasix 20 IV daily Follow BMP in a.m. ID: Septic shock-resolved MSSA bacteremia Gasats-g-Yfki infection status post removal - Rapid clinical improvement after Kvuvah-u-Wcau was removed remains off all pressors - Catheter tip culture blood culture and wound culture also positive for MSSA - Continue Ancef 2 g IV every 8 hours through 01/15 along with rifampin 300 mg by mouth twice a day Cefepime added 12/31 2 g IV every 8 hours. Vancomycin discontinued - Infectious disease consulted by primary. 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 Bell is following - Status post surgical resection for L parotid SCC at [facility] 10/01 --Hematology plans to give weekly Erbitux and XRT outpatient. Transfuse goal hemoglobin greater than 8 ENDO: Hypokalemia Hypo-magnesium Diabetes Hypothyroidism Chronic prednisone use - Electrolyte replacement per protocol - SSI every 6 hours with Levemir 6 units every 12 hours. Holding home medications of metformin 1000 mg twice a day and glipizide 20 mill grams by mouth twice a day - Continue thyroid supplementation with levothyroxine 50 mg daily/home medication . TSH 0.555 on admission Continue prednisone 5 mg by mouth daily PROPH: - Bilateral lower extremity SCDs. No pharmacological prophylaxis secondary to hemoptysis -Protonix 40 iv twice a day Level III follow-up Hubert Yoder MD Jan 02, 2017 17:34
--- NOTE | 2017-01-02 18:16 | PD.WCN.NOT ---
Wound Consult Description: Follow up of coccyx and left buttock wounds. Communicated with: ROMAN Anderson Recommendation: Cleanse buttock and gluteal cleft area gently with soap and water, careful not to remove all of the skin protectant. Leave open to air and apply Calazime BID and PRN for gluteal cleft and bilateral buttock wounds Please continue to turn patient every 2 hours or PRN for comfort. Additional Information: Patient seen on [facility] for follow up of coccyx and left buttock wounds. There are 3 wounds noted on today's assessment. Left buttock wound measures 4cm x 2cm x <0.1cm of partial thickness skinloss with a moist 100% red non granulating tissue noted to wound bed with serosang exudate and purple blanching discoloration to the periwound. Gluteal cleft fissure measures 2cm x 0.4cm x 0.2cm of partial thickness skinloss with a moist 100% pink wound bed with no drainage and purple blanchable periwound. Right buttock wound measures 2cm x 2cm x <0.1cm of moist 100% red non granulating tissue, no active drainage, with purple blanching discoloration noted to periwound. There is no odor with these 3 wounds and no active drainage noted. No new recommendations at this time. Thais Ham [facility] Jan 02, 2017 18:16
[2017-01-03] VITALS (20 sets, daily range): BP systolic 99–117; BP diastolic 51–56; PULSE 62–69; RESP 16; TEMP 97.8–99.4; O2SAT 96–100
[2017-01-03] MEDS: PROPOFOL 1000 MG/100 ML INJ 100 ML IV SCH ×7 (01:11→21:48)
[2017-01-03] MEDS: AMIODARONE INJ 450 MG in D5W (EXCEL BAG) 241 ML IV SCH (01:19)
[2017-01-03] MEDS: DILTIAZEM 125 MG/NS 100 ML IV SCH ×2 (01:19)
[2017-01-03] MEDS: METOPROLOL TARTRATE 25 MG TAB PO SCH ×5 (04:35→23:33)
[2017-01-03] MEDS: CEFEPIME INJ 2,000 MG in SODIUM CHLORIDE 0.9% INJ 100 ML IV SCH ×2 (04:35→14:00)
[2017-01-03] MEDS: SUCRALFATE 1 GM/10 ML CUP PO SCH ×4 (04:36→20:19)
[2017-01-03] MEDS: LEVOTHYROXINE SODIUM 50 MCG TAB PO SCH (04:36)
[2017-01-03] MEDS: INSULIN NovoLIN REGULAR SUPPLEMENTAL SCALE SQ SCH ×3 (06:25→18:00)
[2017-01-03 07:47] LABS: BICARBONATE 31.8 MEQ/L (21.0-32.0); POTASSIUM 3.3 MEQ/L (3.5-5.1)
[2017-01-03] MEDS: CHLORHEXIDINE 0.12% (ORAL KIT) 15 ML CUP MT SCH ×4 (08:00→20:18)
[2017-01-03 08:06] LABS: CALCIUM-PROTEIN CORRECTED 8.1 MG/DL (8.5-10.1)
[2017-01-03] MEDS: FUROSEMIDE 20 MG/2 ML VIAL IV PUSH SCH (08:09)
[2017-01-03] MEDS: fentaNYL DRIP 250 ML IV SCH ×2 (08:09→22:07)
[2017-01-03] MEDS: SODIUM CHLORIDE 0.9% FLUSH 10 ML FLUSH IV FLUSH SCH ×3 (08:10→20:18)
[2017-01-03] MEDS: CLOPIDOGREL 75 MG TAB PO SCH (08:11)
[2017-01-03] MEDS: ASPIRIN EC 81 MG TABEC PO SCH (08:11)
[2017-01-03] MEDS: POLYETHYLENE GLYCOL 17 GM PKG PO SCH (08:11)
[2017-01-03] MEDS: DOCUSATE SODIUM 50 MG/SENNA 8.6 MG TAB PO SCH ×2 (08:11→20:19)
[2017-01-03] MEDS: predniSONE 5 MG TAB PO SCH (08:11)
[2017-01-03] MEDS: RIFAMPIN 150 MG CAP PO SCH (08:12)
[2017-01-03] MEDS: INSULIN DETEMIR 100 UNITS/ML VIAL SQ SCH ×2 (08:12→21:05)
[2017-01-03] MEDS: THIAMINE HCL 100 MG TAB PO SCH (08:12)
[2017-01-03] MEDS: MULTIVITAMIN TAB PO SCH (08:12)
[2017-01-03] MEDS: POTASSIUM CHLOR 40 MEQ PREMIX 100 ML IV PRN (08:18)
[2017-01-03] MEDS ORDERED: POTASSIUM CHLOR 40 MEQ PREMIX 100 ML IV ONE (08:30)
--- NOTE | 2017-01-03 08:49 | HHI.CCPN ---
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 He was hypotensive, febrile up to 101 and received IV fluid resuscitation with improvement in his blood pressure. EKG showed ST-T wave changes, and troponin was elevated and peaked at 17.1. The patient has been evaluated by cardiology. For NSTEMI patient underwent PCI with bare metal stent to LCx by Dr. Krause on 11/30/16. The patient had a CT of the abdomen and pelvis on admission which showed marked soft tissue thickening in the distal esophagus concerning for esophageal cancer. The patient was also noted to have liver cirrhosis and mild splenomegaly. Patient has a history of alcohol intake but according to the girlfriend has not had alcoholic drinks for several months. CTA no evidence of pulmonary embolism or pneumonia. Critical care was consulted today for altered mentation, persistent fever, MSSA bacteremia and worsening sepsis. Apparently patient was agitated overnight requiring restraints. He also sustained a fall when he tried to climb out of the bed. CT of the head was negative except for a possible artifact left temporal region. An MRI which was done today came back negative. On my evaluation the ICU patient was very lethargic and tachypneic breathing approximately 35-40. ABG showed respiratory alkalosis. His altered mentation is most likely secondary to severe sepsis, alcohol withdrawal seems less likely. Blood cultures 4/4 growing MSSA, lactic acid 3,6. 12/25: Today underwent EGD with esophageal stent placement. significant bleeding from distal esophagus. GI and anesthesia felt patient should remain intubated for airway protection. In addition, patient persistently hypotensive requiring vasopressors, phenylephrine at 100 mcg/min, and in a flutter RVR on diltiazem drip. On my evaluation, patient was becoming more unstable. Adenosine 6mg iv x 1 was given which confirmed the rhythm as a flutter, but did not convert patient. give that patient was not anticoagulated, risk/benefit of electrical cardioversion at that time was in favor of conservative measures. patient bolused with amiodarone and placed on amiodarone drip, along with aggressive electrolyte replacement. Of note, patient also has new documented diagnosis of dynamic LVOT obstruction due to his LV hypertrophy and hyperdynamic cardiac function. Critical care medicine re-consulted to evaluate and manage his respiratory failure and cardiac dysrhythmias. 12/26: No more bleeding. Will work to extubate and start liquids, continue oral meds, especially beta gutierrez. 12/29: Reconsulted due to A. fib with RVR. Currently on 5 L simple mask. On amiodarone and Cardizem drips. Looks like some pulmonary edema will be actively diuresed. 12/30: Remains in A. fib with RVR. Currently on 10 L simple mask. Continues on amiodarone drip at 0.5 mg per minute and Cardizem drip at 20 mg an hour. Despite diuresis, increasing oxygen requirements. 12/31: Good response to diuresis. Weight still up about 10 kg. Dense infiltrate right chest, increasing FiO2 requirements. 01/01: Continued respiratory failure. FiO2 70% in tight BiPAP with sats 88%. Labored respirations and poor peripheral perfusion. Will need left effusion and pericardium tapped. I predict problems with hypotension if we use sedation - will start neosynephrine then induce. I have discussed the risks of pericardiocentesis and thoracentesis in detail with the patient, especially increased arrhythmia risk, possibly fatal. 01/02: Resting comfortable in bed. FiO2 40%. Arousable and follows commands. Status post pericardiocentesis yesterday. 20 cc past 24 hours. Subjective 01/03: Tmax 99.8. FiO2 down to 35%. Remains on Oziel-Synephrine at 70 g per minute. Currently normal sinus rhythm. Will attempt thoracentesis left side today permission obtainable with possible attempt at extubation soon. Initiating PPN for nutrition. Objective Vital Signs Date Time Temp Pulse Resp B/P Pulse Ox O2 Delivery O2 Flow Rate FiO2 01/03/17 08: 100 35 01/03/17 06:00 69 01/03/17 04:00 99.4 16 100/52 01/02/17 08:00 Mechanical Ventilator 12/31/16 20:03 15.00 Intake and Output 01/02/17 01/02/17 01/03/17 08:00 16:00 00:00 Intake Total 850 ml 1060 ml 1303 ml Output Total 460 ml 1208 ml 660 ml Balance 390 ml -148 ml 643 ml Result Diagram: 01/02/17 0515 01/03/17 0414 Other Results Microbiology Date/Time Procedure Status Source Growth 01/02/17 20:13 Gram Stain Received Sputum Endotracheal Pending 01/02/17 20:13 Sputum Culture Received Sputum Endotracheal Pending 01/02/17 06:00 Aerobic Blood Culture Received Blood Peripheral Pending 01/02/17 06:00 Anaerobic Blood Culture Received Blood Peripheral Pending 01/01/17 11:30 Gram Stain - Final Resulted Fluid Pericardial Fluid 01/01/17 11:30 Body Fluid Culture - Preliminary Resulted Fluid Pericardial Fluid NO GROWTH IN 24 HOURS. 12/30/16 15:58 Fungal Smear - Final Resulted Fluid Pleural Fluid NO FUNGAL ELEMENTS SEEN. 12/30/16 15:58 Fungal Culture Resulted Fluid Pleural Fluid Pending 12/30/16 15:58 Acid Fast Stain - Final Resulted Fluid Pleural Fluid NO ACID FAST BACILLI SEEN 12/30/16 15:58 Mycobacterial Culture Resulted Fluid Pleural Fluid Pending Imaging Last Impressions Chest X-Ray 01/01/17 0000 Signed Impressions: Service Date/Time: December 12:33 - CONCLUSION: 1. Improving diffuse parenchymal infiltrate. 2. Esophageal stent and PICC in good position. 3. There is a pericardial drain present. Benjamin Pollock MD CT Angiography 12/31/16 0000 Signed Impressions: Service Date/Time: Saturday, December 31, 2016 01:00 - CONCLUSION: 1. Study is negative for pulmonary embolism. 2. Pericardial effusion, diffuse patchy consolidation in both lungs, collapse left lower lobe, bilateral pleural effusions, esophageal stent, similar to yesterday's CT thorax. Kulwant Gupta MD Thoracentesis 12/30/16 0000 Signed Impressions: Service Date/Time: Friday, December 30, 2016 15:34 - CONCLUSION: Uncomplicated CT-guided thoracentesis. Kiran Harding MD Chest CT 12/29/16 0000 Signed Impressions: Service Date/Time: Friday, December 30, 2016 10:56 - CONCLUSION: 1. Moderate bilateral pleural effusions. 2. Areas of consolidation in the upper lobes bilaterally and in the right middle and right lower lobe. There is some combination of consolidation and atelectasis seen in the left lower lobe. Underlying diffuse processes should be considered including edema. 3. Esophageal stent in place. There is increased density within the stent which could be from fluid or soft tissue. 4. Non-specific mildly prominent lymph nodes in the mediastinum. 5. Moderate pericardial effusion. 6. Possible 3rd non-displaced right rib fracture. Washington Chou MD GI Procedure 12/25/16 0000 Signed Impressions: Service Date/Time: December 19:33 - CONCLUSION: Spot film as above. Everett Pollock MD FACR Barium Swallow X-Ray 12/20/16 Signed Impressions: Service Date/Time: Tuesday, December 20, 2016 13:15 - CONCLUSION: 1. The distal half of the esophagus demonstrates irregular luminal narrowing consistent with the patient's history of esophageal adenocarcinoma. 2. Mild dilatation of the esophagus immediately proximal to the esophageal mass. However, there are no signs of obstruction. 3. Small hiatal hernia. Washington Marroquin MD Abdomen MRI 12/17/16 0000 Signed Impressions: Service Date/Time: Saturday, December 17, 2016 13:59 - CONCLUSION: 1. No acute finding is identified to explain the abdominal pain. 2. Stable thickening of the distal esophagus. There is a single mildly enlarged left gastric lymph node measuring 12 x 10 mm. 3. Moderate sized bilateral pleural effusions, left larger than right, with associated compressive atelectasis. Washington Marroquin MD Head CT 12/01/16 0000 Signed Impressions: Service Date/Time: Thursday, December 01, 2016 07:59 - CONCLUSION: 1. Questionable area of low attenuation left temporal lobe could be artifact versus less likely infarct. MRI may be warranted based on clinical history. 2. No midline shift or mass effect. 3. No intraparenchymal hemorrhage. Jagjit Tapia MD Brain MRI 12/01/16 0000 Signed Impressions: Service Date/Time: Thursday, December 01, 2016 12:07 - CONCLUSION: Normal examination. Barrett Rodriguez MD Abdomen X-Ray 12/01/16 0000 Signed Impressions: Service Date/Time: Thursday, December 01, 2016 16:48 - CONCLUSION: No evidence of obstruction. Feeding tube tip in the distal stomach. Barrett Rodriguez MD Abdomen/Pelvis CT 11/29/16 [id number] Signed Impressions: Service Date/Time: Wednesday, November 30, 2016 01:35 - CONCLUSION: 1. Markedly abnormal appearance of the distal esophagus consistent with the history of esophageal carcinoma. 2. Atherosclerotic calcifications of the aorta and iliac vessels. 3. Cirrhotic appearance to the liver with a mildly nodular contour present. Erik Simon MD Objective Remarks GENERAL: Patient is 61 yo male, currently orotracheally intubated SKIN: Warm and dry. Well perfused HEAD: Normocephalic. EYES: No scleral icterus. No injection or drainage. MOUTH: No bleeding. NECK: trachea midline. No JVD. No thrush CARDIOVASCULAR: Currently normal sinus rhythm.. S1, S2 no S4. Without murmurs , clicks, rubs. Pericardial drains with minimal serosanguineous drainage RESPIRATORY: Diminished breath sounds left greater than right. Few crackles appreciated. GASTROINTESTINAL: Abdomen soft, non-tender, nondistended. MUSCULOSKELETAL: Trace bilateral lower extremity peripheral edema. Single lumen PICC line in left upper extremity. Neuro: Arousable and follows commands. Moves all 4 extremities spontaneous. Procedures central line/ arterial line placement intubation cardiac catheterization port removal EUS with esophageal stent placement A/P Assessment and Plan NEURO/Psych: Acute metabolic encephalopathy-improving Possible alcohol withdrawal - completed Chronic oxycodone use - Encephalopathy most likely secondary to hypoxia -Completed therapy with Thiamine, MVI for EtOH withdrawal Acetaminophen for fever Currently on propofol/fentanyl drips for sedation/analgesia while intubated Goal of RASS -2 Daily sedation vacation Oxycodone for pain management 5-10 every 4 hours when necessary holding tramadol/home medication RESP: Acute hypoxemic respiratory failure - multifactorial History COPD Anterior airway Tobacco abuse Bilateral pleural effusions - Emergently intubated and placed on mechanical ventilation 12/02/16, extubated successfully 12/03/16 - (Unable to visualize cords with direct laryngoscopy. With GlideScope #4 blade Grade 2 view, easy intubation) - DuoNeb every 6 hours scheduled and every 2 hours when necessary PRVC ventilation 16//05/22/[address] chest revealed bilateral pleural effusions. Thoracentesis -1200 cc 12/30. Will attempt [place] for left-sided thoracentesis today. CV: Atrial fibrillation with RVR currently normal sinus rhythm NSTEMI Dynamic LVOT obstruction Coronary artery disease status post bare metal stent to left circumflex Krause 12/01 Pericardial effusion status post pericardiocentesis Cardiac catheterization 12/01 revealed EF around 60%. Left main normal. RCA normal. LAD 70% ostial. Bare stent left circumflex 70%. - Continue ASA 162 mg daily (300 mg KS while nothing by mouth)/Plavix 75 mg daily Currently on amiodarone drip at 0.5 mg/m, Cardizem drip at 2.5 mg an hour and metoprolol 25 mill grams every 6 hours (metoprolol held secondary to no oral intake) Followed by Dr. Adler - cardiology. Due to underlying multiple comorbidities not a candidate for ablation at this time. Recommend medical management - 2-D echo no veg, EF 50-55% Holding home medications of losartan 100 mg, amlodipine 10 mg daily. On atorvastatin 40 by mouth daily for dyslipidemia Pericardiocentesis drains - -4/-2. Cc. Cultures no growth. GI: Invasive adenocarcinoma of the esophagus Liver cirrhosis - Dobhoff placed 12/02, cleared by speech for liquid diet. - GI following- has biopsy proven invasive adenoca of esophagus - Status post EUS/esophageal stent placement 12/25 - IV Protonix for twice a day continue. Carafate cannot be given secondary to the pass NG tube Initiating TPN goal 60 cc an hour today. : Acute kidney failure/ATN resolved - Monitor renal function closely. Saxena catheter. -On Lasix 20 IV daily Follow BMP in a.m. ID: Septic shock-resolved MSSA bacteremia [id number] infection status post removal - Rapid clinical improvement after [id number] was removed remains off all pressors - Catheter tip culture blood culture and wound culture also positive for MSSA - Continue Ancef 2 g IV every 8 hours through 01/15 along with rifampin 300 mg by mouth twice a day/switched IV Cefepime added 12/31 2 g IV every 8 hours. Vancomycin discontinued - Infectious disease consulted by primary. 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 Bell is following - Status post surgical resection for L parotid SCC at [facility] 10/01 --Hematology plans to give weekly Erbitux and XRT outpatient. Transfuse goal hemoglobin greater than 8 ENDO: Hypokalemia Hypo-magnesium Diabetes Hypothyroidism Chronic prednisone use - Electrolyte replacement per protocol - SSI every 6 hours with detemir 10 units every 12 hours. /Holding decreased mural nothing by mouth. Start when TPN initiated. Holding home medications of metformin 1000 mg twice a day and glipizide 20 mill grams by mouth twice a day - Continue thyroid supplementation with levothyroxine 50 mg daily/home medication *(25 g IV daily while nothing by mouth) . TSH 0.555 on admission Continue prednisone 5 mg by mouth daily PROPH: - Bilateral lower extremity SCDs. No pharmacological prophylaxis secondary to hemoptysis -Protonix 40 iv twice a day Level III follow-up Hubert Yoder MD Jan 03, 2017 08:49
[2017-01-03] MEDS: ASPIRIN 300 MG SUPP RECTAL SCH (09:57)
[2017-01-03] MEDS: methylPREDNISolone SOD SUCC 40 MG/1 ML VIAL IV PUSH SCH (09:57)
[2017-01-03] MEDS: RIFAMPIN INJ 300 MG in SODIUM CHLORIDE 0.9% INJ 100 ML IV SCH ×2 (09:58→20:21)
[2017-01-03] MEDS: PANTOPRAZOLE SODIUM 40 MG VIAL IV PUSH SCH ×2 (10:01→20:17)
--- NOTE | 2017-01-03 10:28 | PD.ONC.PN ---
Subjective Subjective Remarks Afebrile overnight. Remains intubated, sedated. Per nurse, possible thoracentesis/pigtail catheter placement planned for today, then possible CPAP trials/extubation. pericardial drains with very little output. HR remains improved. Objective Data Date Time Temp Pulse Resp B/P Pulse Ox O2 Delivery O2 Flow Rate FiO2 01/03/17 10:00 67 01/03/17 09:08 100 35 01/03/17 08:17 100 35 01/03/17 08:00 35 01/03/17 08:00 68 01/03/17 08:00 97.8 68 16 100/53 100 01/03/17 06:00 69 01/03/17 04:42 100 35 01/03/17 04:00 99.4 69 16 100/52 99 01/03/17 04:00 35 01/03/17 04:00 69 01/03/17 02:00 69 01/03/17 00:42 96 35 01/03/17 00:00 99.0 68 16 99/51 97 01/03/17 00:00 35 01/03/17 00:00 68 01/02/17 22:00 69 01/02/17 20:00 35 01/02/17 20:00 70 01/02/17 20:00 99.4 70 16 111/57 96 Arterial Line 01/02/17 19:29 97 35 01/02/17 18:00 74 01/02/17 16:55 35 01/02/17 16:15 100 35 01/02/17 16:00 98.8 70 16 114/58 100 01/02/17 16:00 70 01/02/17 14:00 69 01/02/17 13:54 100 35 01/02/17 12:00 99.8 71 16 106/59 99 01/02/17 12:00 71 01/02/17 11:52 98 35 01/03/17 01/03/17 01/03/17 06:59 14:59 22:59 Intake Total 943 ml Output Total 425 ml Balance 518 ml Result Diagram: 01/02/17 0515 01/03/17 0414 Laboratory Results Laboratory Tests Test 01/03/17 04:14 Sodium Level 133 MEQ/L Potassium Level 3.3 MEQ/L Chloride Level 92 MEQ/L Carbon Dioxide Level 31.8 MEQ/L Anion Gap 9 MEQ/L Blood Urea Nitrogen 16 MG/DL Creatinine 0.53 MG/DL Estimat Glomerular Filtration 159 ML/MIN Rate Random Glucose 144 MG/DL Calcium Level 7.1 MG/DL Protein Corrected Calcium 8.1 MG/DL Total Protein 5.3 GM/DL Random Vancomycin Level 4.1 COMMENT Culture Results Microbiology Date/Time Procedure Status Source Growth 01/01/17 11:30 Gram Stain - Final Resulted Fluid Pericardial Fluid 01/01/17 11:30 Body Fluid Culture - Preliminary Resulted Fluid Pericardial Fluid NO GROWTH IN 24 HOURS. 01/02/17 05:50 Aerobic Blood Culture Received Blood Peripheral Pending 01/02/17 05:50 Anaerobic Blood Culture Received Blood Peripheral Pending 01/02/17 06:00 Aerobic Blood Culture Received Blood Peripheral Pending 01/02/17 06:00 Anaerobic Blood Culture Received Blood Peripheral Pending 01/02/17 20:13 Gram Stain - Final Resulted Sputum Endotracheal 01/02/17 20:13 Sputum Culture Resulted Sputum Endotracheal Pending Administered Medications Medications (Trade) Dose Ordered Sig/Geovanny Route PRN Reason Start Time Stop Time Status Last Admin Dose Admin Sodium Chloride (NS Flush) 2 ml UNSCH PRN IV FLUSH FLUSH AFTER USING IV ACCESS 11/30/16 02:45 12/24/16 09:59 Sodium Chloride (NS Flush) 2 ml BID IV FLUSH 11/30/16 09:00 01/02/17 21:08 Oxycodone HCl (Roxicodone) 5 mg Q4H PRN PO PAIN SCALE 3 TO 5 11/30/16 02:45 12/31/16 18:24 Senna/Docusate Sodium (Rere-Colace) 1 tab BID PO 11/30/16 09:00 01/01/17 09:52 Acetaminophen (Tylenol) 325 mg Q4H PRN PO PAIN SCALE 1 TO 2 11/30/16 13:45 12/13/16 17:13 Clopidogrel Bisulfate (Plavix) 75 mg DAILY PO 12/01/16 09:00 Hold 12/25/16 08:06 Ondansetron HCl (Zofran Inj) 4 mg Q4H PRN IV NAUSEA 11/30/16 13:45 12/24/16 22:41 Sodium Chloride (NS Flush) 5 ml Q21D IV FLUSH 11/30/16 18:00 12/21/16 17:19 Heparin Sodium (Porcine) (Heparin Central Flush) 500 units Q21D IV FLUSH 11/30/16 18:00 11/30/16 18:04 Acetaminophen (Tylenol 650 Mg/ 20 ml Liq) 650 mg Q6H PRN PO FEVER 12/01/16 17:30 12/02/16 01:07 Polyethylene Glycol (Miralax) 17 gm DAILY PO 12/04/16 09:00 12/31/16 09:08 Thiamine HCl (Vitamin B1) 100 mg DAILY PO 12/05/16 09:00 01/01/17 09:53 Multivitamins (Theragran) 1 tab DAILY PO 12/05/16 09:00 01/01/17 09:53 Folic Acid (Folate) 1 mg DAILY PO 12/05/16 09:00 Hold 12/25/16 08:07 Rifampin (Rifampin) 300 mg Q12HR PO 12/06/16 09:15 01/15/17 23:00 Hold 01/01/17 09:52 Lorazepam (Ativan Inj) 1 mg Q4H PRN IV PUSH ANXIETY AND/OR AGITATION 12/09/16 15:15 12/31/16 14:16 Atorvastatin Calcium (Lipitor) 40 mg HS PO 12/12/16 21:00 Hold 12/24/16 21:00 Sodium Chloride (NS Flush) See Protocol DAILY IV FLUSH 12/13/16 09:00 12/27/16 08:04 Heparin Sodium (Porcine) (Heparin Central Flush) See Protocol DAILY IV FLUSH 12/13/16 09:00 12/27/16 08:05 Sodium Chloride (NS Flush) UNSCH PRN IV FLUSH SEE PROTOCOL TABLE 12/12/16 17:00 12/19/16 01:59 Lorazepam (Ativan) 0.5 mg DAILY PRN PO ANXIETY 12/18/16 15:45 Hold 12/19/16 08:29 Diltiazem HCl (Cardizem) 90 mg Q6H PO 12/18/16 23:00 Hold 12/25/16 12:14 Oxycodone HCl (Roxicodone) 15 mg Q4H PRN PO PAIN 6-10 12/21/16 11:00 12/31/16 19:51 Digoxin (Lanoxin) 0.25 mg DAILY PO 12/22/16 09:00 Hold 12/25/16 08:06 Sucralfate (Carafate Liq) 1 gm ACHS PO 12/22/16 11:00 01/01/17 09:53 Metoprolol Tartrate (Lopressor Inj) 5 mg Q1HR PRN IV PUSH RAPID HEART RATE 12/22/16 09:45 12/30/16 10:37 Pantoprazole Sodium (Protonix Inj) 40 mg Q12H IV PUSH 12/22/16 10:00 01/03/17 10:01 Aspirin (Ecotrin Ec) 81 mg DAILY PO 12/23/16 09:00 Hold 12/25/16 08:06 Metoprolol Tartrate (Lopressor) 25 mg Q6HR PO 12/22/16 13:00 01/01/17 05:30 Furosemide 20 mg 20 mg DAILY IV PUSH 12/24/16 09:15 01/03/17 08:09 Propofol (Diprivan 1000 Mg/100ml Inj) 100 ml @ 0 mls/hr TITRATE IV 12/25/16 20:30 01/03/17 08:09 Magnesium Oxide 800 mg 800 mg UNSCH PRN PO For Magnesium 1.2 - 1.6 mg/dL 12/25/16 21:00 12/27/16 06:46 Potassium Chloride 100 ml @ 50 mls/hr Q2H PRN IV For Potassium 3.3 - 3.5 mEq/L 12/25/16 21:00 12/29/16 09:33 Potassium Chloride 100 ml @ 25 mls/hr UNSCH PRN IV For Potassium 3.3 - 3.5 mEq/L 12/25/16 21:00 01/03/17 08:18 Sodium Phosphate/ Sodium Chloride (Sodium Phosphate Inj/NS 250 ml Inj) 250 ml @ 42 mls/hr UNSCH PRN IV For Phosphorus < 2.5 mg/dL 12/25/16 21:00 12/30/16 06:49 Chlorhexidine Gluconate (Peridex 0.12% Liq) 15 ml BID@08,20 MT 12/26/16 08:00 01/03/17 08:10 Insulin Human Regular 1 1 Q6HR SQ 12/26/16 00:00 01/03/17 06:25 Amiodarone HCl/ Dextrose (Cordarone Inj/ D5W ([place]) Inj) 250 ml @ 0 mls/hr CONTINUOUS IV 12/25/16 21:15 01/03/17 01:19 Clopidogrel Bisulfate (Plavix) 75 mg DAILY PO 12/29/16 09:00 01/01/17 09:52 Aspirin (Ecotrin Ec) 162 mg DAILY PO 12/29/16 09:00 Hold 01/01/17 09:52 Prednisone (Deltasone) 5 mg DAILY PO 12/29/16 09:00 Hold 01/01/17 09:49 Levothyroxine Sodium (Synthroid) 50 mcg DAILY@06 PO 12/30/16 06:00 Hold 01/01/17 05:30 Insulin Detemir 10 units 10 units Q12HR SQ 12/30/16 21:00 12/31/16 20:06 Diltiazem HCl/ Sodium Chloride (Cardizem Inj/NS Inj) 125 ml @ 0 mls/hr TITRATE IV 12/31/16 01:45 01/03/17 01:19 Chlorhexidine Gluconate 15 ml 15 ml BID@08,20 MT 01/01/17 20:00 01/02/17 21:08 Fentanyl Citrate 250 ml @ 0 mls/hr TITRATE IV 01/01/17 10:45 01/03/17 08:09 Cefepime HCl/ Sodium Chloride (Maxipime Inj/NS Inj) 100 ml @ 200 mls/hr Q12H IV 01/01/17 14:00 01/03/17 04:35 Aspirin 300 mg 300 mg DAILY RECTAL 01/03/17 09:00 01/03/17 09:57 Rifampin/Sodium Chloride (Rifampin Inj/NS Inj) 100 ml @ 100 mls/hr Q12H IV 01/03/17 10:00 01/15/17 09:59 01/03/17 09:58 Methylprednisolone Sodium Succinate (SoluMEDROL INJ) 20 mg DAILY IV PUSH 01/03/17 09:00 01/03/17 09:57 Objective Remarks GENERAL: Chronically ill male intubated, sedated, supine in hospital bed. SKIN: Warm and dry. HEAD: Normocephalic. EYES: No injection or drainage. NECK: Supple, trachea midline. CARDIOVASCULAR: RRR, HR in 60s-70s on tele RESPIRATORY: anterior ray clear. on mechanical ventilation. GASTROINTESTINAL: Abdomen nondistended. EXTREMITIES: No cyanosis. NEUROLOGICAL: sedated Assessment/Plan Problem List: (1) Esophageal adenocarcinoma Status: Acute Plan: --EUS with esophageal stent placement on 12/25 --++hemoptysis --we plan to give weekly Erbitux and XRT outpatient. --patient had OP EGD with biopsy, pathology showed adenocarcinoma. --EGD/Colonoscopy, 11/20/16--showed long stricture in the mid esophagus and distal esophagus, multiple biopsies were performed Pathology revealed invasive adenocarcinoma- distal esophagus --XRT simulation done 12/19. (2) SCC (squamous cell carcinoma) Status: Acute Plan: --has a head and neck, lung malignancy which was locally advanced. --received definitive treatment with surgery. Post surgery he had positive margins and some poor risk features and he was about to get concurrent chemotherapy and radiation and adjuvantly to achieve local control of the disease --PET scan to stage his disease prior to treatment showed an esophageal mass (3) Normocytic anemia Status: Acute Plan: --hgb stable --transfuse packed red blood cells if his hemoglobin drops below 8.5 --s/p iron infusion (4) Afib Status: Acute Plan: --cardiology following. --s/p Pericardiocentesis and pericardial drainage tube placement on 01.01 --on Plavix (on hold) --on ASA (5) Sepsis Status: Resolved Plan: --BC 01.02: pending BC, 12.08 no growth BC, 12/07 no growth --BC, 12/05 +, S. Aureus --had removal of port, + S. aureus --on Cefepime (6) NSTEMI (non-ST elevated myocardial infarction) Status: Acute Plan: --had elevated troponin and ST-segment changes consistent with acute [place]. 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 Also with a new diagnosis of early stage gastric cancer Plan 1. continue supportive care 2. monitor CBC 3. may need to start TPN if not extubated and able to eat soon. Attending Statement The exam, history, and the medical decision-making described in the above note were completed with the assistance of the mid-level provider. I reviewed and agree with the findings presented. I attest that I had a [id number] encounter with the patient on the same day, and personally performed and documented my assessment and findings in the medical record. Problem Qualifiers (1) Afib: Qualified Code: I48.91 - Atrial fibrillation, unspecified type (2) Sepsis: Qualified Code: A41.9 - Sepsis, due to unspecified organism Perla Duran Jan 03, 2017 10:28 Barnt Bell MD Jan 03, 2017 18:22
[2017-01-03] MEDS: RESP: ALBUTEROL 2.5 MG/IPRATROPIUM 0.5 MG NEB (SCH) NEB ×3 (12:07→21:21)
[2017-01-03] MEDS ORDERED: LIDOCAINE HCL 1% 50 ML VIAL ONE (12:33)
--- NOTE | 2017-01-03 12:38 | RADRPT ---
EXAM DATE/TIME: 01/03/2017 12:03 [facility] COMPARISON: CHEST SINGLE AP, January 01, 2017, 12:33. INDICATIONS : Shortness of breath. Follow- up effusion. MEDICAL HISTORY : Chronic obstructive pulmonary disease. Hypertension Hiatal hernia. Hep. C. Esophageal mass. SURGICAL HISTORY : CT guided right thoracentesis. ENCOUNTER: Subsequent ACUITY: 3 days PAIN SCORE: Non-responsive. LOCATION: Bilateral chest FINDINGS: A single view of the chest demonstrates diffuse bilateral airspace disease. Cardiomegaly tube is agai n noted to overlie the left lower chest.. Osseous structures are intact. CONCLUSION: 1. Cardiomegaly with worsening bilateral airspace disease. 2. Pericardial drain. Jagjit Tapia MD on January 03, 2017 at 12:36 Board Certified Radiologist. This report was verified electronically.
[2017-01-03] MEDS ORDERED: LIDOCAINE 2%/EPINEPHrine 1:100,000 50ML MDV ONE (13:00)
--- NOTE | 2017-01-03 13:34 | PD.PROCEDR ---
Procedure Note Procedure Date of procedure: 01/03/2017 Procedure: #10 Korean pigtail chest tube placement Indication: Pleural effusion Details of procedure: Informed consent was obtained from the daughter. The patient was laid supine. The lateral chest wall was cleaned with ChloraPrep twice. Regional sterile drapes were applied. 1% lidocaine with 2% epinephrine was used for local anesthesia and injected into the subcutaneous and deep muscle tissues. A 0.5 cm skin incision was made with a scalpel blade. An insertion needle was placed anterior to the rib. A size 10 Korean chest tube was inserted with a Marina clamp into the pleural cavity and directed toward the anterior direction. 2-0 silk was used to close the wound and to secure the chest tube. A sterile Vaseline gauze dressing was applied. The chest tube was connected to a Pleur- evac drainage system. There was a persistent one chamber air leak. There was 150 cc clear yellowish output from the chest tube. Estimated blood loss: Minimal Complications: None. Stat chest x-ray pending at time of dictation. Hubert Yoder MD Jan 03, 2017 13:34
--- NOTE | 2017-01-03 14:16 | RADRPT ---
EXAM DATE/TIME: 01/03/2017 13:42 [facility] COMPARISON: CHEST SINGLE AP, January 03, 2017, 12:03. INDICATIONS : Post chest tube placement. MEDICAL HISTORY : Chronic obstructive pulmonary disease. Hypertension Hiatal hernia. Hep. C. Esophageal mass. SURGICAL HISTORY : CT guided right thoracentesis. ENCOUNTER: Subsequent ACUITY: 3 days PAIN SCORE: Non-responsive. LOCATION: Left chest FINDINGS: A single view of the chest demonstrates cardiomegaly with bilateral airspace disease greater in the r ight lung. Pericardial drain again seen. Endotracheal tube unchanged. Left-sided PICC line. Small bryan iber left-sided chest tube. Osseous structures are intact. CONCLUSION: Stable chest. Pericardial drain. Left-sided chest tube without pneumothorax. Jagjit Tapia MD on January 03, 2017 at 14:13 Board Certified Radiologist. This report was verified electronically.
[2017-01-03] MEDS: AMIODARONE INJ 450 MG in SODIUM CHLOR 0.9% (EXCEL) INJ 241 ML IV SCH (18:16)
[2017-01-03] MEDS: CLINIMIX E 4.25/25 2000 mL- >42 mls/hr IV-CENTRAL SCH ×3 (20:18)
[2017-01-03] MEDS: PHENYLEPHRINE INJ 160 MG in SODIUM CHLORID 0.9% 500 ML INJ 500 ML IV SCH (20:55)
[2017-01-03 21:36] LABS: HEMATOCRIT 28.1 % (39.0-51.0); MEAN CELL VOLUME 87.7 FL (80.0-100.0); MEAN CORPUSCULAR HGB CONC 31.9 % (32.0-36.0); PLATELET COUNT 299 TH/MM3 (150-450); RED BLOOD COUNT 3.21 MIL/MM3 (4.50-5.90); RED CELL DISTRIBUTION WIDTH 19.4 % (11.6-17.2); REVIEW FLAG FINAL; WHITE BLOOD COUNT 10.5 TH/MM3 (4.0-11.0)
[2017-01-04] VITALS (14 sets, daily range): BP systolic 103–116; BP diastolic 54–58; PULSE 58–69; RESP 16; TEMP 97.8–98.4; O2SAT 92–100
[2017-01-04] MEDS: INSULIN NovoLIN REGULAR SUPPLEMENTAL SCALE SQ SCH ×5 (00:07→23:54)
[2017-01-04] MEDS: PROPOFOL 1000 MG/100 ML INJ 100 ML IV SCH ×6 (00:51→22:21)
[2017-01-04] MEDS: CEFEPIME INJ 2,000 MG in SODIUM CHLORIDE 0.9% INJ 100 ML IV SCH ×2 (00:52→14:37)
[2017-01-04] MEDS: RESP: ALBUTEROL 2.5 MG/IPRATROPIUM 0.5 MG NEB (SCH) NEB ×4 (03:47→21:22)
[2017-01-04 04:17] LABS: AUTOMATED NEUTROPHIL # 6.3 TH/MM3 (1.8-7.7); BASOPHIL % 0.6 % (0.0-2.0); EOSINOPHIL % 0.6 % (0.0-4.0); HEMATOCRIT 26.3 % (39.0-51.0); HEMO FLAGS DIFF FINAL; LYMPH % 11.4 % (9.0-44.0); LYMPHOCYTE # 0.9 TH/MM3 (1.0-4.8); MEAN CELL VOLUME 87.7 FL (80.0-100.0); MEAN CORPUSCULAR HGB CONC 33.1 % (32.0-36.0); MONO % 6.4 % (0.0-8.0); PLATELET COUNT 253 TH/MM3 (150-450); RED CELL DISTRIBUTION WIDTH 19.7 % (11.6-17.2); WHITE BLOOD COUNT 7.8 TH/MM3 (4.0-11.0)
[2017-01-04 05:03] LABS: ALKALINE PHOSPHATASE 86 U/L (45-117); ALT (GPT) 16 U/L (12-78); ANION GAP 8 MEQ/L (5-15); AST (GOT) 25 U/L (15-37); BICARBONATE 31.8 MEQ/L (21.0-32.0); BLOOD UREA NITROGEN 14 MG/DL (7-18); CHLORIDE 94 MEQ/L (98-107); GLOMERULAR FILTRATION RATE 135 ML/MIN (>89); MAGNESIUM 1.8 MG/DL (1.5-2.5); POTASSIUM 3.4 MEQ/L (3.5-5.1); SODIUM (NA) 134 MEQ/L (136-145); TOTAL BILIRUBIN ADULT 0.5 MG/DL (0.2-1.0)
[2017-01-04 05:23] LABS: CREATINE KINASE 43 U/L (39-308)
[2017-01-04] MEDS: METOPROLOL TARTRATE 25 MG TAB PO SCH ×4 (06:00→23:49)
--- NOTE | 2017-01-04 06:00 | RADRPT ---
EXAM DATE/TIME: 01/04/2017 04:51 [facility] COMPARISON: CHEST SINGLE AP, January 03, 2017, 13:42. INDICATIONS : Evaluate for plueral effusion MEDICAL HISTORY : Chronic obstructive pulmonary disease. Hypertension Hiatal hernia. HEP C SURGICAL HISTORY : CT guided right thoracentesis ENCOUNTER: Subsequent ACUITY: 4 - 6 days PAIN SCORE: Non-responsive. LOCATION: Bilateral chest FINDINGS: A single view of the chest demonstrates persistent bibasilar airspace disease with associated effusio ns. This is unchanged. Small bore catheter projects over the left lower chest. Heart size is prominen t with increased interstitial markings suggesting some degree of vascular congestion or volume overlo ad. Degenerative spurring of the dorsal spine. Osseous structures are otherwise intact. CONCLUSION: 1. Stable appearance of the chest with bibasilar airspace disease and associated effusions. 2. Cardio megaly with increased interstitial markings characteristic of some degree of vascular congestion or v olume overload. 2. Stable position of left-sided small bore thoracostomy tube in the left lower chest. Miguel A Peacock MD on January 04, 2017 at 5:57 Board Certified Radiologist. This report was verified electronically.
[2017-01-04] MEDS: AMIODARONE INJ 450 MG in SODIUM CHLOR 0.9% (EXCEL) INJ 241 ML IV SCH ×2 (06:05→20:16)
[2017-01-04] MEDS: LEVOTHYROXINE SODIUM 100 MCG VIAL IV PUSH SCH (06:10)
[2017-01-04] MEDS: POTASSIUM CHLOR 40 MEQ PREMIX 100 ML IV PRN (06:32)
--- NOTE | 2017-01-04 06:54 | HHI.CCPN ---
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 He was hypotensive, febrile up to 101 and received IV fluid resuscitation with improvement in his blood pressure. EKG showed ST-T wave changes, and troponin was elevated and peaked at 17.1. The patient has been evaluated by cardiology. For NSTEMI patient underwent PCI with bare metal stent to LCx by Dr. Krause on 11/30/16. The patient had a CT of the abdomen and pelvis on admission which showed marked soft tissue thickening in the distal esophagus concerning for esophageal cancer. The patient was also noted to have liver cirrhosis and mild splenomegaly. Patient has a history of alcohol intake but according to the girlfriend has not had alcoholic drinks for several months. CTA no evidence of pulmonary embolism or pneumonia. Critical care was consulted today for altered mentation, persistent fever, MSSA bacteremia and worsening sepsis. Apparently patient was agitated overnight requiring restraints. He also sustained a fall when he tried to climb out of the bed. CT of the head was negative except for a possible artifact left temporal region. An MRI which was done today came back negative. On my evaluation the ICU patient was very lethargic and tachypneic breathing approximately 35-40. ABG showed respiratory alkalosis. His altered mentation is most likely secondary to severe sepsis, alcohol withdrawal seems less likely. Blood cultures 4/4 growing MSSA, lactic acid 3,6. 12/25: Today underwent EGD with esophageal stent placement. significant bleeding from distal esophagus. GI and anesthesia felt patient should remain intubated for airway protection. In addition, patient persistently hypotensive requiring vasopressors, phenylephrine at 100 mcg/min, and in a flutter RVR on diltiazem drip. On my evaluation, patient was becoming more unstable. Adenosine 6mg iv x 1 was given which confirmed the rhythm as a flutter, but did not convert patient. give that patient was not anticoagulated, risk/benefit of electrical cardioversion at that time was in favor of conservative measures. patient bolused with amiodarone and placed on amiodarone drip, along with aggressive electrolyte replacement. Of note, patient also has new documented diagnosis of dynamic LVOT obstruction due to his LV hypertrophy and hyperdynamic cardiac function. Critical care medicine re-consulted to evaluate and manage his respiratory failure and cardiac dysrhythmias. 12/26: No more bleeding. Will work to extubate and start liquids, continue oral meds, especially beta gutierrez. 12/29: Reconsulted due to A. fib with RVR. Currently on 5 L simple mask. On amiodarone and Cardizem drips. Looks like some pulmonary edema will be actively diuresed. 12/30: Remains in A. fib with RVR. Currently on 10 L simple mask. Continues on amiodarone drip at 0.5 mg per minute and Cardizem drip at 20 mg an hour. Despite diuresis, increasing oxygen requirements. 12/31: Good response to diuresis. Weight still up about 10 kg. Dense infiltrate right chest, increasing FiO2 requirements. 01/01: Continued respiratory failure. FiO2 70% in tight BiPAP with sats 88%. Labored respirations and poor peripheral perfusion. Will need left effusion and pericardium tapped. I predict problems with hypotension if we use sedation - will start neosynephrine then induce. I have discussed the risks of pericardiocentesis and thoracentesis in detail with the patient, especially increased arrhythmia risk, possibly fatal. 01/02: Resting comfortable in bed. FiO2 40%. Arousable and follows commands. Status post pericardiocentesis yesterday. 20 cc past 24 hours. 01/03: Tmax 99.8. FiO2 down to 35%. Remains on Oziel-Synephrine at 70 g per minute. Currently normal sinus rhythm. Will attempt thoracentesis left side today permission obtainable with possible attempt at extubation soon. Initiating TPN for nutrition. Subjective 01/04: Resting comfortable in bed. Currently afebrile. #10 Turkish pigtail catheter placed left pleural effusion yesterday. -210 cc overnight. No bowel movement 5 days. Relistor, and enema provided today. Nurse states that that patient possible seizure. CT head/EEG ordered for today. Objective Vital Signs Date Time Temp Pulse Resp B/P Pulse Ox O2 Delivery O2 Flow Rate FiO2 01/04/17 04:27 100 35 01/04/17 04:00 66 01/04/17 04:00 98.1 16 113/58 01/02/17 08:00 Mechanical Ventilator 12/31/16 20:03 15.00 Intake and Output 01/03/17 01/03/17 01/04/17 08:00 16:00 00:00 Intake Total 943 ml 1204 ml 951 ml Output Total 425 ml 1086 ml 516 ml Balance 518 ml 118 ml 435 ml Result Diagram: 01/04/17 0344 01/04/17 0344 Other Results Microbiology Date/Time Procedure Status Source Growth 01/02/17 20:13 Gram Stain - Final Resulted Sputum Endotracheal 01/02/17 20:13 Sputum Culture - Preliminary Resulted Sputum Endotracheal IMMATURE GROWTH - REINCUBATE 01/02/17 06:00 Aerobic Blood Culture - Preliminary Resulted Blood Peripheral NO GROWTH IN 1 DAY 01/02/17 06:00 Anaerobic Blood Culture - Preliminary Resulted Blood Peripheral NO GROWTH IN 1 DAY 12/30/16 15:58 Fungal Smear - Final Resulted Fluid Pleural Fluid NO FUNGAL ELEMENTS SEEN. 12/30/16 15:58 Fungal Culture Resulted Fluid Pleural Fluid Pending 12/30/16 15:58 Acid Fast Stain - Final Resulted Fluid Pleural Fluid NO ACID FAST BACILLI SEEN 12/30/16 15:58 Mycobacterial Culture Resulted Fluid Pleural Fluid Pending Imaging Last Impressions Chest X-Ray 01/03/17 1334 Signed Impressions: Service Date/Time: Tuesday, January 03, 2017 13:42 - CONCLUSION: Stable chest. Pericardial drain. Left-sided chest tube without pneumothorax. Jagjit Tapia MD CT Angiography 12/31/16 0000 Signed Impressions: Service Date/Time: Saturday, December 31, 2016 01:00 - CONCLUSION: 1. Study is negative for pulmonary embolism. 2. Pericardial effusion, diffuse patchy consolidation in both lungs, collapse left lower lobe, bilateral pleural effusions, esophageal stent, similar to yesterday's CT thorax. Kulwant Gupta MD Thoracentesis 12/30/16 0000 Signed Impressions: Service Date/Time: Friday, December 30, 2016 15:34 - CONCLUSION: Uncomplicated CT-guided thoracentesis. Kiran Harding MD Chest CT 12/29/16 0000 Signed Impressions: Service Date/Time: Friday, December 30, 2016 10:56 - CONCLUSION: 1. Moderate bilateral pleural effusions. 2. Areas of consolidation in the upper lobes bilaterally and in the right middle and right lower lobe. There is some combination of consolidation and atelectasis seen in the left lower lobe. Underlying diffuse processes should be considered including edema. 3. Esophageal stent in place. There is increased density within the stent which could be from fluid or soft tissue. 4. Non-specific mildly prominent lymph nodes in the mediastinum. 5. Moderate pericardial effusion. 6. Possible 3rd non-displaced right rib fracture. Washington Chou MD GI Procedure 12/25/16 0000 Signed Impressions: Service Date/Time: December 19:33 - CONCLUSION: Spot film as above. Everett Pollock MD FACR Barium Swallow X-Ray 12/20/16 Signed Impressions: Service Date/Time: Tuesday, December 20, 2016 13:15 - CONCLUSION: 1. The distal half of the esophagus demonstrates irregular luminal narrowing consistent with the patient's history of esophageal adenocarcinoma. 2. Mild dilatation of the esophagus immediately proximal to the esophageal mass. However, there are no signs of obstruction. 3. Small hiatal hernia. Washington Marroquin MD Abdomen MRI 12/17/16 Signed Impressions: Service Date/Time: Saturday, December 17, 2016 13:59 - CONCLUSION: 1. No acute finding is identified to explain the abdominal pain. 2. Stable thickening of the distal esophagus. There is a single mildly enlarged left gastric lymph node measuring 12 x 10 mm. 3. Moderate sized bilateral pleural effusions, left larger than right, with associated compressive atelectasis. Washington Marroquin MD Head CT 12/01/16 Signed Impressions: Service Date/Time: Thursday, December 01, 2016 07:59 - CONCLUSION: 1. Questionable area of low attenuation left temporal lobe could be artifact versus less likely infarct. MRI may be warranted based on clinical history. 2. No midline shift or mass effect. 3. No intraparenchymal hemorrhage. Jagjit Tapia MD Brain MRI 12/01/16 0000 Signed Impressions: Service Date/Time: Thursday, December 01, 2016 12:07 - CONCLUSION: Normal examination. Barrett Rodriguez MD Abdomen X-Ray 12/01/16 0000 Signed Impressions: Service Date/Time: Thursday, December 01, 2016 16:48 - CONCLUSION: No evidence of obstruction. Feeding tube tip in the distal stomach. Barrett Rodriguez MD Abdomen/Pelvis CT 11/29/16 [id number] Signed Impressions: Service Date/Time: Wednesday, November 30, 2016 01:35 - CONCLUSION: 1. Markedly abnormal appearance of the distal esophagus consistent with the history of esophageal carcinoma. 2. Atherosclerotic calcifications of the aorta and iliac vessels. 3. Cirrhotic appearance to the liver with a mildly nodular contour present. Erik Simon MD Objective Remarks GENERAL: Patient is 61 yo male, currently orotracheally intubated SKIN: Warm and dry. Well perfused HEAD: Normocephalic. EYES: No scleral icterus. No injection or drainage. MOUTH: No bleeding. NECK: trachea midline. No JVD. No thrush CARDIOVASCULAR: Currently normal sinus rhythm.. S1, S2 no S4. Without murmurs , clicks, rubs. Pericardial drains with minimal serosanguineous drainage RESPIRATORY: Diminished breath sounds left greater than right. Few crackles appreciated. GASTROINTESTINAL: Abdomen soft, non-tender, nondistended. MUSCULOSKELETAL: Trace bilateral lower extremity peripheral edema. Single lumen PICC line in left upper extremity. Neuro: Arousable on ventilator but not following commands currently. Sedated with propofol and fentanyl drips. Procedures central line/ arterial line placement intubation cardiac catheterization port removal EUS with esophageal stent placement A/P Assessment and Plan NEURO/Psych: Acute metabolic encephalopathy-improving Possible alcohol withdrawal - completed Chronic oxycodone use - Encephalopathy most likely secondary to hypoxia -Completed therapy with Thiamine, MVI for EtOH withdrawal Acetaminophen for fever Currently on propofol at 40 mcg/kg per minute/fentanyl drips at 150 g an hour for sedation/analgesia while intubated Goal of RASS -2 Daily sedation vacation Oxycodone for pain management 5-10 every 4 hours when necessary holding tramadol/home medication RESP: Acute hypoxemic respiratory failure - multifactorial History COPD Anterior airway Tobacco abuse Bilateral pleural effusions - Emergently intubated and placed on mechanical ventilation 12/02/16, extubated successfully 12/03/16 - (Unable to visualize cords with direct laryngoscopy. With GlideScope #4 blade Grade 2 view, easy intubation) - DuoNeb every 6 hours scheduled and every 2 hours when necessary PRVC ventilation /05/22/[address] chest revealed bilateral pleural effusions. Thoracentesis -1200 cc 12/30. Placement of #10 Turkish pigtail catheter 01/03. -210 cc. -40 cm CV: Atrial fibrillation with RVR currently normal sinus rhythm NSTEMI Dynamic LVOT obstruction Coronary artery disease status post bare metal stent to left circumflex Krause 12/01 Pericardial effusion status post pericardiocentesis Cardiac catheterization 12/01 revealed EF around 60%. Left main normal. RCA normal. LAD 70% ostial. Bare stent left circumflex 70%. - Continue ASA 162 mg daily (300 mg CO while nothing by mouth)/Plavix 75 mg daily Currently on amiodarone drip at 0.5 mg/m, Cardizem drip at 2.5 mg an hour and metoprolol 25 mill grams every 6 hours (metoprolol held secondary to no oral intake) Followed by Dr. Adler - cardiology. Due to underlying multiple comorbidities not a candidate for ablation at this time. Recommend medical management - 2-D echo no veg, EF 50-55% Holding home medications of losartan 100 mg, amlodipine 10 mg daily. On atorvastatin 40 by mouth daily for dyslipidemia when able to swallow Pericardiocentesis drains - - -7/-4. Cc. Cultures no growth. GI: Invasive adenocarcinoma of the esophagus Liver cirrhosis - Dobhoff unable to be place secondary to esophageal stent - GI following- has biopsy proven invasive adenoca of esophagus - Status post EUS/esophageal stent placement 12/25 - IV Protonix for twice a day continue. Carafate cannot be given secondary to the pass NG tube Initiating TPN goal 60 cc an hour today. Surgery/Dr. Rich is following. Inez Parekh notified Thursday. Will reassess Thursday for possible intervention for feeding tube : Acute kidney failure/ATN resolved - Monitor renal function closely. Saxena catheter. -On Lasix 20 IV daily Follow BMP in a.m. ID: Septic shock-resolved MSSA bacteremia [id number] infection status post removal - Rapid clinical improvement after [id number] was removed remains off all pressors - Catheter tip culture blood culture and wound culture also positive for MSSA - Continue Ancef 2 g IV every 8 hours through 01/15 (stopped 01/01) along with rifampin 300 mg by mouth twice a day/switched IV Cefepime added 12/31 2 g IV every 8 hours. Likely seem stop date 01/15 Vancomycin discontinued - Infectious disease consulted by primary. 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 Bell is following - Status post surgical resection for L parotid SCC at [facility] 10/01 --Hematology plans to give weekly Erbitux and XRT outpatient. Transfuse goal hemoglobin greater than 8 ENDO: Hypokalemia Hypo-magnesium Diabetes Hypothyroidism Chronic prednisone use - Electrolyte replacement per protocol - SSI every 6 hours with detemir 20 units every 12 hours. TPN initiated. Holding home medications of metformin 1000 mg twice a day and glipizide 20 mill grams by mouth twice a day - Continue thyroid supplementation with levothyroxine 50 mg daily/home medication *(25 g IV daily while nothing by mouth) . TSH 0.555 on admission Continue prednisone 5 mg by mouth daily - switched to Solu-Medrol 20 mg IV daily PROPH: - Bilateral lower extremity SCDs. No pharmacological prophylaxis secondary to hemoptysis -Pantoprazole 40 iv twice a day Level III follow-up Hubert Yoder MD Jan 04, 2017 06:54
[2017-01-04] MEDS: SUCRALFATE 1 GM/10 ML CUP PO SCH ×4 (07:00→20:34)
[2017-01-04] MEDS: MAGNESIUM SULFATE 1 GM PREMIX 100 ML IV SCH ×2 (07:00→08:00)
[2017-01-04] MEDS ORDERED: MINERAL OIL ENEMA 118 ML BTL RECTAL ONE (07:00)
[2017-01-04] MEDS ORDERED: POTASSIUM CHLOR 40 MEQ PREMIX 100 ML IV ONE (07:00)
[2017-01-04] MEDS ORDERED: METHYLNALTREXONE BROMIDE 12 MG/0.6 ML VIAL SQ ONE (07:30)
[2017-01-04] MEDS: CHLORHEXIDINE 0.12% (ORAL KIT) 15 ML CUP MT SCH ×4 (07:48→20:17)
[2017-01-04] MEDS: SODIUM CHLORIDE 0.9% FLUSH 10 ML FLUSH IV FLUSH SCH ×3 (07:48→20:17)
[2017-01-04] MEDS: methylPREDNISolone SOD SUCC 40 MG/1 ML VIAL IV PUSH SCH (07:49)
[2017-01-04] MEDS: FUROSEMIDE 20 MG/2 ML VIAL IV PUSH SCH (07:49)
[2017-01-04] MEDS: POLYETHYLENE GLYCOL 17 GM PKG PO SCH (07:50)
[2017-01-04] MEDS: INSULIN DETEMIR 100 UNITS/ML VIAL SQ SCH ×2 (09:00→20:34)
[2017-01-04] MEDS: THIAMINE HCL 100 MG TAB PO SCH (09:00)
[2017-01-04] MEDS: DOCUSATE SODIUM 50 MG/SENNA 8.6 MG TAB PO SCH ×2 (09:00→20:34)
[2017-01-04] MEDS: ASPIRIN 300 MG SUPP RECTAL SCH (09:00)
[2017-01-04] MEDS: MULTIVITAMIN TAB PO SCH (09:00)
[2017-01-04] MEDS: CLOPIDOGREL 75 MG TAB PO SCH (09:00)
[2017-01-04] MEDS: PANTOPRAZOLE SODIUM 40 MG VIAL IV PUSH SCH ×2 (10:00→20:34)
[2017-01-04] MEDS: RIFAMPIN INJ 300 MG in SODIUM CHLORIDE 0.9% INJ 100 ML IV SCH ×2 (10:00→20:34)
--- NOTE | 2017-01-04 13:09 | RADRPT ---
EXAM DATE/TIME: 01/04/2017 12:00 CORRECTION Corrected on: January 04, 2017; [place] COMPARISON: CHEST SINGLE AP, January 04, 2017, 4:51. INDICATIONS : Endotracheal tube placement. MEDICAL HISTORY : Hiatal hernia. Hypertension. Chronic obstructive pulmonary disease. Hepatitis C.Esophageal mass SURGICAL HISTORY : thorocentesis ENCOUNTER: Subsequent ACUITY: 1 month PAIN SCORE: Non-responsive. LOCATION: Bilateral upper chest FINDINGS: A single view of the chest demonstrates bilateral airspace disease. Cardiomegaly. Endotracheal tube 3 cm above the elizabeth.. Osseous structures are intact. Left-sided chest tube without pneumothorax. CONCLUSION: Adequate placement of endotracheal tube. Cardiomegaly and bilateral airspace disease again seen. Jagjit Tapia MD on January 04, 2017 at 13:07 Board Certified Radiologist. This report was verified electronically. Jagjit Tapia MD on January 04, 2017 at 13:11 Board Certified Radiologist. This report was verified electronically.
[2017-01-04] MEDS: fentaNYL DRIP 250 ML IV SCH (13:46)
[2017-01-04] MEDS: ARTIFICIAL TEARS OPTH SOLN 15 ML BTL EACH EYE SCH ×2 (14:00→22:00)
--- NOTE | 2017-01-04 14:42 | PD.ONC.PN ---
Subjective Subjective Remarks Afebrile overnight. patient seen at 915AM. late entry d/t meditech downtime. remains intubated, sedated and on pressors. pigtail catheter placement yesterday. Objective Data Date Time Temp Pulse Resp B/P (MAP) Pulse Ox O2 Delivery O2 Flow Rate FiO2 01/04/17 11:50 92 45 01/04/17 11:50 45 01/04/17 07:32 100 35 01/04/17 06:00 64 01/04/17 04:27 100 35 01/04/17 04:00 66 01/04/17 04:00 98.1 66 16 113/58 (76) 100 01/04/17 04:00 35 01/04/17 02:00 61 01/04/17 01:20 100 35 01/04/17 00:00 98.4 63 16 106/56 (73) 100 01/04/17 00:00 63 01/04/17 00:00 35 01/03/17 22:42 100 35 01/03/17 22:00 68 01/03/17 20:00 98.6 62 16 107/53 (71) 100 01/03/17 20:00 62 01/03/17 20:00 35 01/03/17 19:13 100 35 01/03/17 18:00 66 01/03/17 16:42 100 35 01/03/17 16:00 98.3 66 16 117/56 (76) 100 01/03/17 16:00 66 01/03/17 16:00 35 01/04/17 01/04/17 01/04/17 07:00 15:00 23:00 Intake Total 1663 ml Output Total 306 ml Balance 1357 ml Result Diagram: 01/04/17 0344 01/04/17 0344 Laboratory Results Laboratory Tests Test 01/03/17 20:45 01/04/17 03:44 01/04/17 06:44 White Blood Count 10.5 TH/MM3 7.8 TH/MM3 Red Blood Count 3.21 MIL/MM3 3.00 MIL/MM3 Hemoglobin 9.0 GM/DL 8.7 GM/DL Hematocrit 28.1 % 26.3 % Mean Corpuscular Volume 87.7 FL 87.7 FL Mean Corpuscular Hemoglobin 28.0 PG 29.0 PG Mean Corpuscular Hemoglobin Concent 31.9 % 33.1 % Red Cell Distribution Width 19.4 % 19.7 % Platelet Count 299 TH/MM3 253 TH/MM3 Mean Platelet Volume 7.8 FL 8.0 FL Neutrophils (%) (Auto) 81.0 % Lymphocytes (%) (Auto) 11.4 % Monocytes (%) (Auto) 6.4 % Eosinophils (%) (Auto) 0.6 % Basophils (%) (Auto) 0.6 % Neutrophils # (Auto) 6.3 TH/MM3 Lymphocytes # (Auto) 0.9 TH/MM3 Monocytes # (Auto) 0.5 TH/MM3 Eosinophils # (Auto) 0.0 TH/MM3 Basophils # (Auto) 0.0 TH/MM3 CBC Comment DIFF FINAL Differential Comment Blood Urea Nitrogen 14 MG/DL Creatinine 0.61 MG/DL Random Glucose 254 MG/DL Total Protein 5.5 GM/DL Albumin 1.2 GM/DL Calcium Level 7.7 MG/DL Phosphorus Level 2.5 MG/DL Magnesium Level 1.8 MG/DL Alkaline Phosphatase 86 U/L Aspartate Amino Transf (AST/SGOT) 25 U/L Alanine Aminotransferase (ALT/SGPT) 16 U/L Total Bilirubin 0.5 MG/DL Sodium Level 134 MEQ/L Potassium Level 3.4 MEQ/L Chloride Level 94 MEQ/L Carbon Dioxide Level 31.8 MEQ/L Anion Gap 8 MEQ/L Estimat Glomerular Filtration Rate 135 ML/MIN Total Creatine Kinase 43 U/L Lipase 60 U/L Culture Results Microbiology Date/Time Source Procedure Growth Status 01/02/17 06:00 Blood Peripheral Aerobic Blood Culture - Preliminary NO GROWTH IN 2 DAYS Resulted 01/02/17 06:00 Blood Peripheral Anaerobic Blood Culture - Preliminary NO GROWTH IN 2 DAYS Resulted 01/02/17 05:50 Blood Peripheral Aerobic Blood Culture - Preliminary NO GROWTH IN 2 DAYS Resulted 01/02/17 05:50 Blood Peripheral Anaerobic Blood Culture - Preliminary NO GROWTH IN 2 DAYS Resulted 01/02/17 20:13 Sputum Endotracheal Gram Stain - Final Resulted 01/02/17 20:13 Sputum Culture - Preliminary Pseudomonas Species Resulted Imaging Studies Last 24 hours Impressions Chest X-Ray 01/04/17 0600 Signed Impressions: Service Date/Time: Wednesday, January 04, 2017 04:51 - CONCLUSION: 1. Stable appearance of the chest with bibasilar airspace disease and associated effusions. 2. Cardiomegaly with increased interstitial markings characteristic of some degree of vascular congestion or volume overload. 2. Stable position of left-sided small bore thoracostomy tube in the left lower chest. Miguel A Peacock MD Administered Medications Medications (Trade) Dose Ordered Sig/Geovanny Route PRN Reason Start Time Stop Time Status Last Admin Dose Admin Sodium Chloride (NS Flush) 2 ml UNSCH PRN IV FLUSH FLUSH AFTER USING IV ACCESS 11/30/16 02:45 12/24/16 09:59 Sodium Chloride (NS Flush) 2 ml BID IV FLUSH 11/30/16 09:00 01/02/17 21:08 Oxycodone HCl (Roxicodone) 5 mg Q4H PRN PO PAIN SCALE 3 TO 5 11/30/16 02:45 12/31/16 18:24 Senna/Docusate Sodium (Rere-Colace) 1 tab BID PO 11/30/16 09:00 01/01/17 09:52 Acetaminophen (Tylenol) 325 mg Q4H PRN PO PAIN SCALE 1 TO 2 11/30/16 13:45 12/13/16 17:13 Clopidogrel Bisulfate (Plavix) 75 mg DAILY PO 12/01/16 09:00 Future Hold 12/25/16 08:06 Ondansetron HCl (Zofran Inj) 4 mg Q4H PRN IV NAUSEA 11/30/16 13:45 12/24/16 22:41 Sodium Chloride (NS Flush) 5 ml Q21D IV FLUSH 11/30/16 18:00 12/21/16 17:19 Heparin Sodium (Porcine) (Heparin Central Flush) 500 units Q21D IV FLUSH 11/30/16 18:00 11/30/16 18:04 Acetaminophen (Tylenol 650 Mg/ 20 ml Liq) 650 mg Q6H PRN PO FEVER 12/01/16 17:30 12/02/16 01:07 Polyethylene Glycol (Miralax) 17 gm DAILY PO 12/04/16 09:00 12/31/16 09:08 Thiamine HCl (Vitamin B1) 100 mg DAILY PO 12/05/16 09:00 01/01/17 09:53 Multivitamins (Theragran) 1 tab DAILY PO 12/05/16 09:00 01/01/17 09:53 Folic Acid (Folate) 1 mg DAILY PO 12/05/16 09:00 Future Hold 12/25/16 08:07 Rifampin (Rifampin) 300 mg Q12HR PO 12/06/16 09:15 01/15/17 23:00 Future Hold 01/01/17 09:52 Lorazepam (Ativan Inj) 1 mg Q4H PRN IV PUSH ANXIETY AND/OR AGITATION 12/09/16 15:15 12/31/16 14:16 Atorvastatin Calcium (Lipitor) 40 mg HS PO 12/12/16 21:00 Future Hold 12/24/16 21:00 Sodium Chloride (NS Flush) See Protocol DAILY IV FLUSH 12/13/16 09:00 12/27/16 08:04 Heparin Sodium (Porcine) (Heparin Central Flush) See Protocol DAILY IV FLUSH 12/13/16 09:00 12/27/16 08:05 Sodium Chloride (NS Flush) UNSCH PRN IV FLUSH SEE PROTOCOL TABLE 12/12/16 17:00 12/19/16 01:59 Lorazepam (Ativan) 0.5 mg DAILY PRN PO ANXIETY 12/18/16 15:45 Future Hold 12/19/16 08:29 Diltiazem HCl (Cardizem) 90 mg Q6H PO 12/18/16 23:00 Future Hold 12/25/16 12:14 Oxycodone HCl (Roxicodone) 15 mg Q4H PRN PO PAIN 6-10 12/21/16 11:00 12/31/16 19:51 Digoxin (Lanoxin) 0.25 mg DAILY PO 12/22/16 09:00 Future Hold 12/25/16 08:06 Sucralfate (Carafate Liq) 1 gm ACHS PO 12/22/16 11:00 01/01/17 09:53 Metoprolol Tartrate (Lopressor Inj) 5 mg Q1HR PRN IV PUSH RAPID HEART RATE 12/22/16 09:45 12/30/16 10:37 Pantoprazole Sodium (Protonix Inj) 40 mg Q12H IV PUSH 12/22/16 10:00 01/04/17 10:00 Aspirin (Ecotrin Ec) 81 mg DAILY PO 12/23/16 09:00 Future Hold 12/25/16 08:06 Metoprolol Tartrate (Lopressor) 25 mg Q6HR PO 12/22/16 13:00 01/01/17 05:30 Furosemide (Lasix Inj) 20 mg DAILY IV PUSH 12/24/16 09:15 Future hold 01/04/17 07:49 Magnesium Oxide (Mag-Ox) 800 mg UNSCH PRN PO For Magnesium 1.2 - 1.6 mg/dL 12/25/16 21:00 12/27/16 06:46 Potassium Chloride 100 ml @ 50 mls/hr Q2H PRN IV For Potassium 3.3 - 3.5 mEq/L 12/25/16 21:00 12/29/16 09:33 Potassium Chloride 100 ml @ 25 mls/hr UNSCH PRN IV For Potassium 3.3 - 3.5 mEq/L 12/25/16 21:00 01/04/17 06:32 Sodium Phosphate 30 mmol/Sodium Chloride 250 ml @ 42 mls/hr UNSCH PRN IV For Phosphorus < 2.5 mg/dL 12/25/16 21:00 12/30/16 06:49 Chlorhexidine Gluconate (Peridex 0.12% Liq) 15 ml BID@08,20 MT 12/26/16 08:00 01/04/17 07:48 Insulin Human Regular (NovoLIN R SUPPLEMENTAL SCALE) 1 Q6HR SQ 12/26/16 00:00 01/04/17 12:00 Albuterol/ Ipratropium (Duoneb Neb) 1 ampule Q2HR NEB PRN INH WHEEZING 12/25/16 21:00 01/02/17 19:29 Clopidogrel Bisulfate (Plavix) 75 mg DAILY PO 12/29/16 09:00 01/01/17 09:52 Aspirin (Ecotrin Ec) 162 mg DAILY PO 12/29/16 09:00 Future Hold 01/01/17 09:52 Prednisone (Deltasone) 5 mg DAILY PO 12/29/16 09:00 Future Hold 01/01/17 09:49 Levothyroxine Sodium (Synthroid) 50 mcg DAILY@06 PO 12/30/16 06:00 Future Hold 01/01/17 05:30 Diltiazem HCl 125 mg/Sodium Chloride 125 ml @ 0 mls/hr TITRATE IV 12/31/16 01:45 01/03/17 01:19 Chlorhexidine Gluconate (Peridex 0.12% Liq) 15 ml BID@08,20 MT 01/01/17 20:00 01/02/17 21:08 Propofol 100 ml @ 0 mls/hr TITRATE IV 01/01/17 10:45 01/04/17 08:30 Fentanyl Citrate 250 ml @ 0 mls/hr TITRATE IV 01/01/17 10:45 01/04/17 13:46 Phenylephrine HCl 160 mg/Sodium Chloride 516 ml @ 0 mls/hr TITRATE IV 01/01/17 11:00 01/03/17 20:55 Cefepime HCl 2000 mg/Sodium Chloride 100 ml @ 200 mls/hr Q12H IV 01/01/17 14:00 01/04/17 00:52 Aspirin (Aspirin Supp) 300 mg DAILY RECTAL 01/03/17 09:00 01/04/17 09:00 Levothyroxine Sodium (Synthroid Inj) 25 mcg DAILY@06 IV PUSH 01/04/17 06:00 01/04/17 06:10 Rifampin 300 mg/ Sodium Chloride 100 ml @ 100 mls/hr Q12H IV 01/03/17 10:00 01/15/17 09:59 01/04/17 10:00 Albuterol/ Ipratropium (Duoneb Neb) 1 ampule Q6HR NEB NEB 01/03/17 10:00 01/04/17 07:31 Methylprednisolone Sodium Succinate (SoluMEDROL INJ) 20 mg DAILY IV PUSH 01/03/17 09:00 01/04/17 07:49 Amiodarone HCl 450 mg/Sodium Chloride 250 ml @ 0 mls/hr CONTINUOUS IV 01/03/17 13:00 01/04/17 06:05 Multivitamins 10 ml/Folic Acid 1 mg/Amino Acids/ Electrolytes/ Dextrose 2,010.2 ml @ 60 mls/hr Q24H IV-CENTRAL 01/03/17 20:00 01/03/17 20:18 Insulin Detemir (Levemir Inj) 20 units Q12HR SQ 01/04/17 09:00 01/04/17 09:00 Objective Remarks GENERAL: Middle aged male supine in bed, intubated, sedated SKIN: Warm and dry. HEAD: Normocephalic. EYES: No injection or drainage. NECK: Supple, trachea midline. CARDIOVASCULAR: regular rate and rhythm RESPIRATORY: anterior ray clear. on mechanical ventilation. GASTROINTESTINAL: Abdomen nondistended. EXTREMITIES: No cyanosis. NEUROLOGICAL: sedated Assessment/Plan Problem List: (1) Esophageal adenocarcinoma ICD Codes: C15.9 - Malignant neoplasm of esophagus, unspecified Status: Acute Plan: --EUS with esophageal stent placement on 12/25 --++hemoptysis --we plan to give weekly Erbitux and XRT outpatient. --patient had OP EGD with biopsy, pathology showed adenocarcinoma. --EGD/Colonoscopy, 11/20/16--showed long stricture in the mid esophagus and distal esophagus, multiple biopsies were performed Pathology revealed invasive adenocarcinoma- distal esophagus --XRT simulation done 12/19. (2) SCC (squamous cell carcinoma) ICD Codes: C44.92 - Squamous cell carcinoma of skin, unspecified Status: Acute Plan: --has a head and neck, lung malignancy which was locally advanced. --received definitive treatment with surgery. Post surgery he had positive margins and some poor risk features and he was about to get concurrent chemotherapy and radiation and adjuvantly to achieve local control of the disease --PET scan to stage his disease prior to treatment showed an esophageal mass (3) Normocytic anemia ICD Codes: D64.9 - Anemia, unspecified Status: Acute Plan: --hgb stable --transfuse packed red blood cells if his hemoglobin drops below 8.5 --s/p iron infusion (4) Afib ICD Codes: I48.91 - Unspecified atrial fibrillation Status: Acute Plan: --cardiology following. --s/p Pericardiocentesis and pericardial drainage tube placement on 01.01 --on Plavix (on hold) --on ASA (5) Sepsis ICD Codes: A41.9 - Sepsis, unspecified organism Status: Resolved Plan: --BC 8.18: pending BC, 7.24 no growth BC, 12/07 no growth --BC, 12/05 +, S. Aureus --had removal of port, + S. aureus --on Cefepime (6) NSTEMI (non-ST elevated myocardial infarction) ICD Codes: I21.4 - Non-ST elevation (NSTEMI) myocardial infarction Status: Acute Plan: --had elevated troponin and ST-segment changes consistent with acute VT. 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 Also with a new diagnosis of early stage gastric cancer Plan 1. continue supportive care 2. monitor CBC, await extubation, improvement before beginning treatment for esophageal cancer. Attending Statement The exam, history, and the medical decision-making described in the above note were completed with the assistance of the mid-level provider. I reviewed and agree with the findings presented. I attest that I had a [id number] encounter with the patient on the same day, and personally performed and documented my assessment and findings in the medical record. Problem Qualifiers (1) Afib: (2) Sepsis: Perla Duran Jan 04, 2017 14:41 Brant Bell MD Jan 04, 2017 17:16
--- NOTE | 2017-01-04 14:50 | HHI.IDPN ---
Subjective Subjective Remarks Patient is a 61-year-old male, currently lethargic, and unable to give any history. History has been obtained from the chart. 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 It was reportedly malignant as well. He presented to the hospital complaining of generalized weakness, abdominal pain and progressive swallowing difficulty over the last 3 weeks. Evaluation in the emergency room revealed abnormal EKG, and he underwent cardiac catheterization. He had non-ST VA, and had revascularization with stent placement of his left circumflex artery. Patient is spiked to 103, and there were 2 blood cultures done yesterday that are now reported as growing staph aureus. Patient currently has a Saxena catheter. There is a lot of sediment in his urine, and his urine culture is also showing staph aureus. CT of the abdomen and pelvis did not show any abnormality except the soft tissue mass in the esophagus. He had atherosclerosis of his vasculature. There was also evidence of possible liver cirrhosis. Patient is being evaluated for chemotherapy and radiation, but he has not been started. He had an [id number] placement on November 12 on his right upper chest. Notes reviewed D/W RN Temps better There was question of SZ last night Patient was following commands when off sedation Back on sedation, having EEG done Remains on pressors Sputum with Pseudomonas BC negative so far Has drain in pericardium - fluid exudative Has L CT with serous fluid Not a lot of ET secretions Antibiotics Cefepime Rifampin Lines Port - removed 12/02 PICC Past Medical History Hypertension Hyperlipidemia CAD Diabetes 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 and he had good margins Recurrent squamous cell carcinoma on the left face, with involvement of the parotid gland, status post surgery at [facility] Recently found to have esophageal mass Past Surgical History Appendectomy Liver Biopsy Resection of a squamous cell carcinoma on the left cheek in 2011 Extensive surgery on the left face and neck for recurrent squamous cell carcinoma Port Placement November 12, 2016 Allergies: Coded Allergies: penicillin G (Unverified Allergy, Mild, Hives, 12/30/16) Objective . Vital Signs Date Time Temp Pulse Resp B/P (MAP) Pulse Ox O2 Delivery O2 Flow Rate FiO2 01/04/17 11:50 92 45 01/04/17 11:50 45 01/04/17 07:32 100 35 01/04/17 06:00 64 01/04/17 04:27 100 35 01/04/17 04:00 66 01/04/17 04:00 98.1 66 16 113/58 (76) 100 01/04/17 04:00 35 01/04/17 02:00 61 01/04/17 01:20 100 35 01/04/17 00:00 98.4 63 16 106/56 (73) 100 01/04/17 00:00 63 01/04/17 00:00 35 01/03/17 22:42 100 35 01/03/17 22:00 68 01/03/17 20:00 98.6 62 16 107/53 (71) 100 01/03/17 20:00 62 01/03/17 20:00 35 01/03/17 19:13 100 35 01/03/17 18:00 66 01/03/17 16:42 100 35 01/03/17 16:00 98.3 66 16 117/56 (76) 100 01/03/17 16:00 66 01/03/17 16:00 35 01/04/17 01/04/17 01/05/17 15:00 23:00 07:00 Intake Total 100 ml Balance 100 ml IV Total 100 ml . Laboratory Tests Test 01/03/17 20:45 01/04/17 03:44 White Blood Count 10.5 TH/MM3 7.8 TH/MM3 Red Blood Count 3.21 MIL/MM3 3.00 MIL/MM3 Hemoglobin 9.0 GM/DL 8.7 GM/DL Hematocrit 28.1 % 26.3 % Mean Corpuscular Volume 87.7 FL 87.7 FL Mean Corpuscular Hemoglobin 28.0 PG 29.0 PG Mean Corpuscular Hemoglobin Concent 31.9 % 33.1 % Red Cell Distribution Width 19.4 % 19.7 % Platelet Count 299 TH/MM3 253 TH/MM3 Mean Platelet Volume 7.8 FL 8.0 FL Neutrophils (%) (Auto) 81.0 % Lymphocytes (%) (Auto) 11.4 % Monocytes (%) (Auto) 6.4 % Eosinophils (%) (Auto) 0.6 % Basophils (%) (Auto) 0.6 % Neutrophils # (Auto) 6.3 TH/MM3 Lymphocytes # (Auto) 0.9 TH/MM3 Monocytes # (Auto) 0.5 TH/MM3 Eosinophils # (Auto) 0.0 TH/MM3 Basophils # (Auto) 0.0 TH/MM3 CBC Comment DIFF FINAL Differential Comment Laboratory Tests Test 01/03/17 04:14 01/04/17 03:44 01/04/17 06:44 Blood Urea Nitrogen 16 MG/DL 14 MG/DL Creatinine 0.53 MG/DL 0.61 MG/DL Random Glucose 144 MG/DL 254 MG/DL Total Protein 5.3 GM/DL 5.5 GM/DL Calcium Level 7.1 MG/DL 7.7 MG/DL Sodium Level 133 MEQ/L 134 MEQ/L Potassium Level 3.3 MEQ/L 3.4 MEQ/L Chloride Level 92 MEQ/L 94 MEQ/L Carbon Dioxide Level 31.8 MEQ/L 31.8 MEQ/L Anion Gap 9 MEQ/L 8 MEQ/L Estimat Glomerular Filtration Rate 159 ML/MIN 135 ML/MIN Protein Corrected Calcium 8.1 MG/DL Albumin 1.2 GM/DL Phosphorus Level 2.5 MG/DL Magnesium Level 1.8 MG/DL Alkaline Phosphatase 86 U/L Aspartate Amino Transf (AST/SGOT) 25 U/L Alanine Aminotransferase (ALT/SGPT) 16 U/L Total Bilirubin 0.5 MG/DL Total Creatine Kinase 43 U/L Lipase 60 U/L Microbiology Date/Time Source Procedure Growth Status 01/02/17 06:00 Blood Peripheral Aerobic Blood Culture - Preliminary NO GROWTH IN 2 DAYS Resulted 01/02/17 06:00 Blood Peripheral Anaerobic Blood Culture - Preliminary NO GROWTH IN 2 DAYS Resulted 01/02/17 05:50 Blood Peripheral Aerobic Blood Culture - Preliminary NO GROWTH IN 2 DAYS Resulted 01/02/17 05:50 Blood Peripheral Anaerobic Blood Culture - Preliminary NO GROWTH IN 2 DAYS Resulted 01/02/17 20:13 Sputum Endotracheal Gram Stain - Final Resulted 01/02/17 20:13 Sputum Culture - Preliminary Pseudomonas Species Resulted Imaging Chest X-Ray 01/01/17 0000 Signed Impressions: Service Date/Time: December 12:33 - CONCLUSION: 1. Improving diffuse parenchymal infiltrate. 2. Esophageal stent and PICC in good position. 3. There is a pericardial drain present. Benjamin Pollock MD Chest X-Ray 12/31/16 0600 Signed Impressions: Service Date/Time: Saturday, December 31, 2016 03:30 - CONCLUSION: Increasing consolidative infiltrates in the right lower lung, persistence patchy infiltrates in the right upper lung and persistent dense consolidation of the left lower lung. Kulwant Gupta MD CT Angiography 12/31/16 0000 Signed Impressions: Service Date/Time: Saturday, December 31, 2016 01:00 - CONCLUSION: 1. Study is negative for pulmonary embolism. 2. Pericardial effusion, diffuse patchy consolidation in both lungs, collapse left lower lobe, bilateral pleural effusions, esophageal stent, similar to yesterday's CT thorax. Kulwant Gupta MD Last 48 hours Impressions Chest X-Ray 12/26/16 0600 Signed Impressions: Service Date/Time: Monday, December 26, 2016 03:45 - CONCLUSION: Improving pulmonary edema and effusions, now mild/small. Unchanged moderate cardiomegaly. Washington Beasley MD GI Procedure 12/25/16 0000 Signed Impressions: Service Date/Time: December 19:33 - CONCLUSION: Spot film as above. Everett Pollock MD FACR Chest X-Ray 12/25/16 0000 Signed Impressions: Service Date/Time: December 20:28 - CONCLUSION: ET in good position; increasing congestive failure. Everett Pollock MD FACR Chest X-Ray 12/05/16 0600 Signed Impressions: Service Date/Time: Monday, December 05, 2016 03:30 - CONCLUSION: 1. Cardiomegaly and findings of vascular congestion without overt failure. There has been no significant change when compared to the prior exam. Bobby Matias MD Head CT 12/01/16 0000 Signed Impressions: Service Date/Time: Thursday, December 01, 2016 07:59 - CONCLUSION: 1. Questionable area of low attenuation left temporal lobe could be artifact versus less likely infarct. MRI may be warranted based on clinical history. 2. No midline shift or mass effect. 3. No intraparenchymal hemorrhage. Jagjit Tapia MD Brain MRI 12/01/16 0000 Signed Impressions: Service Date/Time: Thursday, December 01, 2016 12:07 - CONCLUSION: Normal examination. Barrett Rodriguez MD Abdomen X-Ray 12/01/16 0000 Signed Impressions: Service Date/Time: Thursday, December 01, 2016 16:48 - CONCLUSION: No evidence of obstruction. Feeding tube tip in the distal stomach. Barrett Rodriguez MD Abdomen/Pelvis CT 11/29/16 2356 Signed Impressions: Service Date/Time: Wednesday, November 30, 2016 01:35 - CONCLUSION: 1. Markedly abnormal appearance of the distal esophagus consistent with the history of esophageal carcinoma. 2. Atherosclerotic calcifications of the aorta and iliac vessels. 3. Cirrhotic appearance to the liver with a mildly nodular contour present. Erik Simon MD CT Angiography 11/29/16 2348 Signed Impressions: Service Date/Time: Wednesday, November 30, 2016 01:35 - CONCLUSION: 1. No evidence for pulmonary embolism or pneumonia. 2. Abnormal appearance of the esophagus with and soft tissue consistent with the history of carcinoma. Erik Simon MD Chest X-Ray 12/03/16 0600 Signed Impressions: Service Date/Time: Saturday, December 03, 2016 04:43 - CONCLUSION: Increasing consolidation in the left lower lung. Bilateral interstitial changes. Niko Wilcox MD Chest X-Ray 12/03/16 0000 Signed Impressions: Service Date/Time: Saturday, December 03, 2016 07:48 - CONCLUSION: 1. Persistent left retrocardiac density and slight interstitial prominence. Jagjit Tapia MD Chest X-Ray 12/02/16 0000 Signed Impressions: Service Date/Time: Friday, December 02, 2016 15:55 - CONCLUSION: Normal examination with endotracheal tube and central lines in good position. Barrett Rodriguez MD Chest X-Ray 12/02/16 0000 Signed Impressions: Service Date/Time: Friday, December 02, 2016 08:24 - CONCLUSION: Mild perihilar vascular congestion. Endotracheal tube is in good position Barrett Rodriguez MD Chest X-Ray 12/02/16 0000 Signed Impressions: Service Date/Time: Friday, December 02, 2016 06:53 - CONCLUSION: Underinflated examination with atelectasis at the lung bases. Given the technique, no acute abnormality or significant interval change is appreciated. Washington Marroquin MD Physical Exam GENERAL: Sedated on the vent. SKIN: Warm and dry. No generalized rash EYES: . No scleral icterus. No injection or drainage. EARS, NOSE AND THROAT: Nose without bleeding or purulent nasal discharge. Orally intubated. NECK: Trachea midline. Supple and not tender, no meningeal signs CARDIOVASCULAR: Irregular rate and rhythm. There is a coarse systolic murmur at base of the heart, no as loud. No rub. RESPIRATORY: Some rhonchi on R. Intact dressing R chest. Drain in place, pericardial space ABDOMEN: Soft, not distended, not tender. Bowel sounds present and normoactive. No organomegaly. EXTREMITIES: No clubbing, cyanosis. Has pitting BLE edema. No calf tenderness. Well perfused and warm. NEUROLOGICAL: Sedated PSYCHIATRIC: unable to assess LINE: Dry dressing on previous port site, healing. PICC site ok : Saxena in place Assessment & Plan Remarks IMPRESSION Respiratory failure - has ?PNA, C/S with Pseudomonas - CHF - S/P RX GNR PNA Recurrent shock MSSA sepsis due to port infection, removed - S/P removal port 12/02 - last (+) BC 12/05 Recurrent squamous cell CA Esophageal CA, S/P EUS and stent placement Lethargy and SOB due to sepsis, resolved - has acidosis, resolved Renal insufficiency, due to sepsis and shock, better Atrial fib, rate still goes up and down New murmur - last echo with new "pseudo" outflow tract obstruction, ?this is source ?Seizure RECOMMENDATION Continue Rifampin, for synergy vs MSSA - follow LFT Continue Cefepime He will need 6 weeks IV Abx - anticipated end date Jan 15 (6 weeks from last +BC) Labs weekly while on Abx: CBC, creatinine and LFT - will have HEPAS order and monitor - call if abnormal and with questions Follow new C/S D/W Carola Dick MD Jan 04, 2017 14:50
[2017-01-04] MEDS: CLINIMIX E 4.25/25 2000 mL- >42 mls/hr IV-CENTRAL SCH ×3 (21:30)
[2017-01-05] VITALS (19 sets, daily range): BP systolic 103–124; BP diastolic 51–58; PULSE 60–73; RESP 16; TEMP 97.1–99; O2SAT 96–100
[2017-01-05] MEDS: CEFEPIME INJ 2,000 MG in SODIUM CHLORIDE 0.9% INJ 100 ML IV SCH ×2 (01:10→13:35)
[2017-01-05] MEDS: PROPOFOL 1000 MG/100 ML INJ 100 ML IV SCH ×6 (02:16→21:15)
[2017-01-05] MEDS: PHENYLEPHRINE INJ 160 MG in SODIUM CHLORID 0.9% 500 ML INJ 500 ML IV SCH (02:17)
[2017-01-05] MEDS: DILTIAZEM 125 MG/NS 100 ML IV SCH ×2 (02:43)
[2017-01-05 03:39] LABS: AUTOMATED NEUTROPHIL # 5.8 TH/MM3 (1.8-7.7); BASOPHIL % 0.5 % (0.0-2.0); EOSINOPHIL # 0.1 TH/MM3 (0-0.4); EOSINOPHIL % 0.8 % (0.0-4.0); HEMATOCRIT 26.7 % (39.0-51.0); HEMO FLAGS DIFF FINAL; LYMPH % 12.5 % (9.0-44.0); LYMPHOCYTE # 0.9 TH/MM3 (1.0-4.8); MEAN CELL VOLUME 88.6 FL (80.0-100.0); MEAN CORPUSCULAR HEMOGLOBIN 28.9 PG (27.0-34.0); MEAN CORPUSCULAR HGB CONC 32.7 % (32.0-36.0); MONO % 8.1 % (0.0-8.0); NEUT % 78.1 % (16.0-70.0); PLATELET COUNT 245 TH/MM3 (150-450); RED BLOOD COUNT 3.02 MIL/MM3 (4.50-5.90); RED CELL DISTRIBUTION WIDTH 19.7 % (11.6-17.2); WHITE BLOOD COUNT 7.4 TH/MM3 (4.0-11.0)
[2017-01-05 04:01] LABS: ALT (GPT) 16 U/L (12-78); ANION GAP 6 MEQ/L (5-15); AST (GOT) 20 U/L (15-37); BICARBONATE 31.6 MEQ/L (21.0-32.0); BLOOD UREA NITROGEN 13 MG/DL (7-18); CHLORIDE 98 MEQ/L (98-107); GLOMERULAR FILTRATION RATE 152 ML/MIN (>89); MAGNESIUM 1.9 MG/DL (1.5-2.5); POTASSIUM 3.6 MEQ/L (3.5-5.1); SODIUM (NA) 136 MEQ/L (136-145)
--- NOTE | 2017-01-05 04:02 | RADRPT ---
EXAM DATE/TIME: 01/05/2017 03:41 [facility] COMPARISON: No previous studies available for comparison. INDICATIONS : Altered mental status. RADIATION DOSE: 56.35 CTDIvol (mGy) MEDICAL HISTORY : Chronic obstructive pulmonary disease. Hepatitis C. Cirrhosis. Coronary artery disease. Hiatal hernia . Hypertension. SURGICAL HISTORY : Appendectomy. ENCOUNTER: Initial ACUITY: 1 day PAIN SCALE: Non-responsive LOCATION: cranial TECHNIQUE: Multiple contiguous axial images were obtained of the head. Using automated exposure control and adj ustment of the mA and/or kV according to patient size, radiation dose was kept as low as reasonably a chievable to obtain optimal diagnostic quality images. DICOM format image data is available electro nically for review and comparison. FINDINGS: CEREBRUM: The ventricles are normal for age. No evidence of midline shift, mass lesion, hemorrhage or acute in farction. No extra-axial fluid collections are seen. POSTERIOR FOSSA: The cerebellum and brainstem are intact. The 4th ventricle is midline. The cerebellopontine angle i s unremarkable. EXTRACRANIAL: The visualized portion of the orbits is intact. SKULL: The calvaria is intact. No evidence of skull fracture. Fluid present in mastoid air cells. CONCLUSION: 1. No acute intracranial abnormalities. Fluid in the mastoid air cells characteristic of mastoiditis. Kervin Krause MD on January 05, 2017 at 3:58 Board Certified Radiologist. This report was verified electronically.
[2017-01-05 04:04] LABS: ALKALINE PHOSPHATASE 86 U/L (45-117); TOTAL BILIRUBIN ADULT 0.3 MG/DL (0.2-1.0)
[2017-01-05 04:08] LABS: CREATINE KINASE 41 U/L (39-308)
[2017-01-05] MEDS: RESP: ALBUTEROL 2.5 MG/IPRATROPIUM 0.5 MG NEB (SCH) NEB ×4 (04:15→21:34)
--- NOTE | 2017-01-05 05:08 | MG ---
cc: REYNA PIKE M.D. Lab No: [id number] Date: 01/04/2017 Age: Sex: M Race: HISTORY The patient is intubated. A 61-year-old man with abdominal pain, hyperlipidemia. MEDICATIONS 1. Solu-Medrol. 2. Fentanyl. 3. Propofol. FINDINGS Diffuse alpha waves are noted. The recording overall is synchronous and symmetric. Photic stimulation was performed without significant posterior driving. No epileptiform or seizure activity is noted. There were no hemisphere asymmetries. IMPRESSION A generally unremarkable EEG. No evidence for a focal or diffuse abnormality. MD YASMINE Romo/RAFAEL /10:10 PM /5:03 AM
[2017-01-05] MEDS: LEVOTHYROXINE SODIUM 100 MCG VIAL IV PUSH SCH (05:21)
[2017-01-05] MEDS: INSULIN NovoLIN REGULAR SUPPLEMENTAL SCALE SQ SCH ×4 (05:22→23:43)
[2017-01-05] MEDS: ARTIFICIAL TEARS OPTH SOLN 15 ML BTL EACH EYE SCH ×3 (05:23→21:02)
[2017-01-05] MEDS: METOPROLOL TARTRATE 25 MG TAB PO SCH ×4 (05:23→23:06)
--- NOTE | 2017-01-05 05:49 | RADRPT ---
EXAM DATE/TIME: 01/05/2017 04:09 [facility] COMPARISON: CHEST SINGLE AP, January 04, 2017, 12:00. INDICATIONS : Short of breath. MEDICAL HISTORY : Hiatal hernia. Hypertension. Chronic obstructive pulmonary disease. SURGICAL HISTORY : thorocentesis ENCOUNTER: Subsequent ACUITY: 1 month PAIN SCORE: 0/10 LOCATION: Bilateral chest FINDINGS: A single view of the chest demonstrates endotracheal tube in satisfactory position. Small caliber lef t chest tube without pneumothorax. Additional tube overlying lower chest may be within the pericardia l cavity. Left PICC line in superior vena cava. Bilateral mostly basilar airspace disease similar to January 04. CONCLUSION: 1. Support apparatus as above. Bilateral mostly basilar airspace disease similar in appearance to Dec us. Kervin Krause MD on January 05, 2017 at 5:43 Board Certified Radiologist. This report was verified electronically.
--- NOTE | 2017-01-05 05:51 | RADRPT ---
EXAM DATE/TIME: 01/05/2017 04:11 [facility] COMPARISON: No previous studies available for comparison. INDICATIONS : Ileus. MEDICAL HISTORY : None. SURGICAL HISTORY : None. ENCOUNTER: Subsequent ACUITY: 1 month PAIN SCORE: 0/10 LOCATION: Bilateral abdomen FINDINGS: Supine view of the abdomen was performed. There is residual contrast in large bowel. No evidence for bowel obstruction. Presumed pericardial catheter present. No free air. Mild scoliosis. CONCLUSION: 1. Residual contrast in large bowel. No evidence for obstruction. Kervin Krause MD on January 05, 2017 at 5:49 Board Certified Radiologist. This report was verified electronically.
[2017-01-05] MEDS: fentaNYL DRIP 250 ML IV SCH (06:29)
[2017-01-05] MEDS: SUCRALFATE 1 GM/10 ML CUP PO SCH ×4 (07:00→20:26)
[2017-01-05] MEDS: CHLORHEXIDINE 0.12% (ORAL KIT) 15 ML CUP MT SCH ×4 (07:40→20:45)
[2017-01-05] MEDS: MULTIVITAMIN TAB PO SCH (09:00)
[2017-01-05] MEDS: SODIUM CHLORIDE 0.9% FLUSH 10 ML FLUSH IV FLUSH SCH ×3 (09:00→20:25)
[2017-01-05] MEDS: DOCUSATE SODIUM 50 MG/SENNA 8.6 MG TAB PO SCH ×2 (09:00→20:26)
[2017-01-05] MEDS: POLYETHYLENE GLYCOL 17 GM PKG PO SCH (09:00)
[2017-01-05] MEDS: THIAMINE HCL 100 MG TAB PO SCH (09:00)
[2017-01-05] MEDS: INSULIN DETEMIR 100 UNITS/ML VIAL SQ SCH ×2 (09:00→20:45)
[2017-01-05] MEDS: CLOPIDOGREL 75 MG TAB PO SCH (09:00)
[2017-01-05] MEDS: AMIODARONE INJ 450 MG in SODIUM CHLOR 0.9% (EXCEL) INJ 241 ML IV SCH (09:19)
[2017-01-05] MEDS: RIFAMPIN INJ 300 MG in SODIUM CHLORIDE 0.9% INJ 100 ML IV SCH ×2 (09:19→21:02)
[2017-01-05] MEDS: PANTOPRAZOLE SODIUM 40 MG VIAL IV PUSH SCH ×2 (09:19→21:02)
[2017-01-05] MEDS: FUROSEMIDE 20 MG/2 ML VIAL IV PUSH SCH (09:20)
[2017-01-05] MEDS: ASPIRIN 300 MG SUPP RECTAL SCH (09:20)
[2017-01-05] MEDS: methylPREDNISolone SOD SUCC 40 MG/1 ML VIAL IV PUSH SCH (09:20)
--- NOTE | 2017-01-05 11:00 | PD.ONC.PN ---
Subjective Subjective Remarks Afebrile overnight. Patient remains intubated, sedated and on pressors. Objective Data Date Time Temp Pulse Resp B/P (MAP) Pulse Ox O2 Delivery O2 Flow Rate FiO2 01/05/17 09:19 72 110/56 01/05/17 07:48 99 35 01/05/17 06:00 62 01/05/17 04:15 99 35 01/05/17 04:00 35 01/05/17 04:00 62 01/05/17 04:00 97.1 62 16 107/58 (74) 100 01/05/17 03:40 100 100 01/05/17 02:17 61 111/57 01/05/17 02:00 60 01/05/17 01:28 99 35 01/05/17 00:00 35 01/05/17 00:00 97.8 65 16 112/55 (74) 99 01/05/17 00:00 69 01/04/17 22:00 69 01/04/17 20:26 100 35 01/04/17 20:16 58 109/56 01/04/17 20:16 58 108/57 01/04/17 20:00 97.8 58 16 116/57 (76) 99 01/04/17 20:00 58 01/04/17 20:00 35 01/04/17 18:00 60 01/04/17 18:00 59 108/56 01/04/17 18:00 59 108/56 01/04/17 16:06 99 35 01/04/17 16:00 35 01/04/17 16:00 60 01/04/17 16:00 97.8 60 16 103/54 (70) 99 01/04/17 11:50 92 45 01/04/17 11:50 92 45 01/04/17 11:50 45 01/05/17 01/05/17 01/05/17 07:00 15:00 23:00 Output Total 561 ml Balance -561 ml Result Diagram: 01/05/17 0326 01/05/17 0326 Laboratory Results Laboratory Tests Test 01/04/17 21:23 01/05/17 03:26 Potassium Level 3.6 MEQ/L 3.6 MEQ/L White Blood Count 7.4 TH/MM3 Red Blood Count 3.02 MIL/MM3 Hemoglobin 8.7 GM/DL Hematocrit 26.7 % Mean Corpuscular Volume 88.6 FL Mean Corpuscular Hemoglobin 28.9 PG Mean Corpuscular Hemoglobin Concent 32.7 % Red Cell Distribution Width 19.7 % Platelet Count 245 TH/MM3 Mean Platelet Volume 8.3 FL Neutrophils (%) (Auto) 78.1 % Lymphocytes (%) (Auto) 12.5 % Monocytes (%) (Auto) 8.1 % Eosinophils (%) (Auto) 0.8 % Basophils (%) (Auto) 0.5 % Neutrophils # (Auto) 5.8 TH/MM3 Lymphocytes # (Auto) 0.9 TH/MM3 Monocytes # (Auto) 0.6 TH/MM3 Eosinophils # (Auto) 0.1 TH/MM3 Basophils # (Auto) 0.0 TH/MM3 CBC Comment DIFF FINAL Differential Comment Blood Urea Nitrogen 13 MG/DL Creatinine 0.55 MG/DL Random Glucose 282 MG/DL Total Protein 5.6 GM/DL Albumin 1.2 GM/DL Calcium Level 7.5 MG/DL Phosphorus Level 2.5 MG/DL Magnesium Level 1.9 MG/DL Alkaline Phosphatase 86 U/L Aspartate Amino Transf (AST/SGOT) 20 U/L Alanine Aminotransferase (ALT/SGPT) 16 U/L Total Bilirubin 0.3 MG/DL Sodium Level 136 MEQ/L Chloride Level 98 MEQ/L Carbon Dioxide Level 31.6 MEQ/L Anion Gap 6 MEQ/L Estimat Glomerular Filtration Rate 152 ML/MIN Total Creatine Kinase 41 U/L Culture Results Microbiology Date/Time Source Procedure Growth Status 01/02/17 20:13 Sputum Endotracheal Gram Stain - Final Resulted 01/02/17 20:13 Sputum Culture - Preliminary Pseudomonas Species Resulted Administered Medications Medications (Trade) Dose Ordered Sig/Geovanny Route PRN Reason Start Time Stop Time Status Last Admin Dose Admin Sodium Chloride (NS Flush) 2 ml UNSCH PRN IV FLUSH FLUSH AFTER USING IV ACCESS 11/30/16 02:45 12/24/16 09:59 Sodium Chloride (NS Flush) 2 ml BID IV FLUSH 11/30/16 09:00 01/02/17 21:08 Oxycodone HCl (Roxicodone) 5 mg Q4H PRN PO PAIN SCALE 3 TO 5 11/30/16 02:45 12/31/16 18:24 Senna/Docusate Sodium (Rere-Colace) 1 tab BID PO 11/30/16 09:00 01/01/17 09:52 Acetaminophen (Tylenol) 325 mg Q4H PRN PO PAIN SCALE 1 TO 2 11/30/16 13:45 12/13/16 17:13 Clopidogrel Bisulfate (Plavix) 75 mg DAILY PO 12/01/16 09:00 Future Hold 12/25/16 08:06 Ondansetron HCl (Zofran Inj) 4 mg Q4H PRN IV NAUSEA 11/30/16 13:45 12/24/16 22:41 Sodium Chloride (NS Flush) 5 ml Q21D IV FLUSH 11/30/16 18:00 12/21/16 17:19 Heparin Sodium (Porcine) (Heparin Central Flush) 500 units Q21D IV FLUSH 11/30/16 18:00 11/30/16 18:04 Acetaminophen (Tylenol 650 Mg/ 20 ml Liq) 650 mg Q6H PRN PO FEVER 12/01/16 17:30 12/02/16 01:07 Polyethylene Glycol (Miralax) 17 gm DAILY PO 12/04/16 09:00 12/31/16 09:08 Thiamine HCl (Vitamin B1) 100 mg DAILY PO 12/05/16 09:00 01/01/17 09:53 Multivitamins (Theragran) 1 tab DAILY PO 12/05/16 09:00 01/01/17 09:53 Folic Acid (Folate) 1 mg DAILY PO 12/05/16 09:00 Future Hold 12/25/16 08:07 Rifampin (Rifampin) 300 mg Q12HR PO 12/06/16 09:15 01/15/17 23:00 Future Hold 01/01/17 09:52 Lorazepam (Ativan Inj) 1 mg Q4H PRN IV PUSH ANXIETY AND/OR AGITATION 12/09/16 15:15 12/31/16 14:16 Atorvastatin Calcium (Lipitor) 40 mg HS PO 12/12/16 21:00 Future Hold 12/24/16 21:00 Sodium Chloride (NS Flush) See Protocol DAILY IV FLUSH 12/13/16 09:00 12/27/16 08:04 Heparin Sodium (Porcine) (Heparin Central Flush) See Protocol DAILY IV FLUSH 12/13/16 09:00 12/27/16 08:05 Sodium Chloride (NS Flush) UNSCH PRN IV FLUSH SEE PROTOCOL TABLE 12/12/16 17:00 12/19/16 01:59 Lorazepam (Ativan) 0.5 mg DAILY PRN PO ANXIETY 12/18/16 15:45 Future Hold 12/19/16 08:29 Diltiazem HCl (Cardizem) 90 mg Q6H PO 12/18/16 23:00 Future Hold 12/25/16 12:14 Oxycodone HCl (Roxicodone) 15 mg Q4H PRN PO PAIN 6-10 12/21/16 11:00 12/31/16 19:51 Digoxin (Lanoxin) 0.25 mg DAILY PO 12/22/16 09:00 Future Hold 12/25/16 08:06 Sucralfate (Carafate Liq) 1 gm ACHS PO 12/22/16 11:00 01/01/17 09:53 Metoprolol Tartrate (Lopressor Inj) 5 mg Q1HR PRN IV PUSH RAPID HEART RATE 12/22/16 09:45 12/30/16 10:37 Pantoprazole Sodium (Protonix Inj) 40 mg Q12H IV PUSH 12/22/16 10:00 01/05/17 09:19 Aspirin (Ecotrin Ec) 81 mg DAILY PO 12/23/16 09:00 Future Hold 12/25/16 08:06 Metoprolol Tartrate (Lopressor) 25 mg Q6HR PO 12/22/16 13:00 01/01/17 05:30 Furosemide (Lasix Inj) 20 mg DAILY IV PUSH 12/24/16 09:15 Future hold 01/05/17 09:20 Magnesium Oxide (Mag-Ox) 800 mg UNSCH PRN PO For Magnesium 1.2 - 1.6 mg/dL 12/25/16 21:00 12/27/16 06:46 Potassium Chloride 100 ml @ 50 mls/hr Q2H PRN IV For Potassium 3.3 - 3.5 mEq/L 12/25/16 21:00 12/29/16 09:33 Potassium Chloride 100 ml @ 25 mls/hr UNSCH PRN IV For Potassium 3.3 - 3.5 mEq/L 12/25/16 21:00 01/04/17 06:32 Sodium Phosphate 30 mmol/Sodium Chloride 250 ml @ 42 mls/hr UNSCH PRN IV For Phosphorus < 2.5 mg/dL 12/25/16 21:00 12/30/16 06:49 Chlorhexidine Gluconate (Peridex 0.12% Liq) 15 ml BID@08,20 MT 12/26/16 08:00 01/05/17 08:00 Insulin Human Regular (NovoLIN R SUPPLEMENTAL SCALE) 1 Q6HR SQ 12/26/16 00:00 01/05/17 05:22 Albuterol/ Ipratropium (Duoneb Neb) 1 ampule Q2HR NEB PRN INH WHEEZING 12/25/16 21:00 01/02/17 19:29 Clopidogrel Bisulfate (Plavix) 75 mg DAILY PO 12/29/16 09:00 01/01/17 09:52 Aspirin (Ecotrin Ec) 162 mg DAILY PO 12/29/16 09:00 Future Hold 01/01/17 09:52 Prednisone (Deltasone) 5 mg DAILY PO 12/29/16 09:00 Future Hold 01/01/17 09:49 Levothyroxine Sodium (Synthroid) 50 mcg DAILY@06 PO 12/30/16 06:00 Future Hold 01/01/17 05:30 Diltiazem HCl 125 mg/Sodium Chloride 125 ml @ 0 mls/hr TITRATE IV 12/31/16 01:45 01/05/17 02:43 Chlorhexidine Gluconate (Peridex 0.12% Liq) 15 ml BID@08,20 MT 01/01/17 20:00 01/02/17 21:08 Propofol 100 ml @ 0 mls/hr TITRATE IV 01/01/17 10:45 01/05/17 10:36 Fentanyl Citrate 250 ml @ 0 mls/hr TITRATE IV 01/01/17 10:45 01/05/17 06:29 Phenylephrine HCl 160 mg/Sodium Chloride 516 ml @ 0 mls/hr TITRATE IV 01/01/17 11:00 01/05/17 02:17 Cefepime HCl 2000 mg/Sodium Chloride 100 ml @ 200 mls/hr Q12H IV 01/01/17 14:00 01/05/17 01:10 Aspirin (Aspirin Supp) 300 mg DAILY RECTAL 01/03/17 09:00 01/05/17 09:20 Levothyroxine Sodium (Synthroid Inj) 25 mcg DAILY@06 IV PUSH 01/04/17 06:00 01/05/17 05:21 Rifampin 300 mg/ Sodium Chloride 100 ml @ 100 mls/hr Q12H IV 01/03/17 10:00 01/15/17 09:59 01/05/17 09:19 Albuterol/ Ipratropium (Duoneb Neb) 1 ampule Q6HR NEB NEB 01/03/17 10:00 01/05/17 07:47 Methylprednisolone Sodium Succinate (SoluMEDROL INJ) 20 mg DAILY IV PUSH 01/03/17 09:00 01/05/17 09:20 Amiodarone HCl 450 mg/Sodium Chloride 250 ml @ 0 mls/hr CONTINUOUS IV 01/03/17 13:00 01/05/17 09:19 Multivitamins 10 ml/Folic Acid 1 mg/Amino Acids/ Electrolytes/ Dextrose 2,010.2 ml @ 60 mls/hr Q24H IV-CENTRAL 01/03/17 20:00 01/04/17 21:30 Insulin Detemir (Levemir Inj) 20 units Q12HR SQ 01/04/17 09:00 01/05/17 09:00 Artificial Tears (Tears Naturale Opth Soln) 1 drop Q8HR EACH EYE 01/04/17 14:00 01/05/17 05:23 Objective Remarks GENERAL: chronically ill male intubated, sedated. SKIN: Warm and dry. HEAD: Normocephalic. EYES: No injection or drainage. NECK: Supple, trachea midline. CARDIOVASCULAR: regular rate and rhythm RESPIRATORY: anterior ray with occasional rhonchi. on mechanical ventilation. GASTROINTESTINAL: Abdomen nondistended. EXTREMITIES: No cyanosis. NEUROLOGICAL: sedated Assessment/Plan Problem List: (1) Esophageal adenocarcinoma ICD Codes: C15.9 - Malignant neoplasm of esophagus, unspecified Status: Acute Plan: --EUS with esophageal stent placement on 12/25 --++hemoptysis --we plan to give weekly Erbitux and XRT outpatient. --patient had OP EGD with biopsy, pathology showed adenocarcinoma. --EGD/Colonoscopy, 11/20/16--showed long stricture in the mid esophagus and distal esophagus, multiple biopsies were performed Pathology revealed invasive adenocarcinoma- distal esophagus --XRT simulation done 12/19. (2) SCC (squamous cell carcinoma) ICD Codes: C44.92 - Squamous cell carcinoma of skin, unspecified Status: Acute Plan: --has a head and neck, lung malignancy which was locally advanced. --received definitive treatment with surgery. Post surgery he had positive margins and some poor risk features and he was about to get concurrent chemotherapy and radiation and adjuvantly to achieve local control of the disease --PET scan to stage his disease prior to treatment showed an esophageal mass (3) Normocytic anemia ICD Codes: D64.9 - Anemia, unspecified Status: Acute Plan: --hgb stable --transfuse packed red blood cells if his hemoglobin drops below 8.5 --s/p iron infusion (4) Afib ICD Codes: I48.91 - Unspecified atrial fibrillation Status: Acute Plan: --cardiology following. --s/p Pericardiocentesis and pericardial drainage tube placement on 01.01 --on Plavix (on hold) --on ASA (5) Sepsis ICD Codes: A41.9 - Sepsis, unspecified organism Status: Resolved Plan: --BC 8.: pending BC, 7.24 no growth BC, 12/07 no growth --BC, 12/05 +, S. Aureus --had removal of port, + S. aureus --on Cefepime (6) NSTEMI (non-ST elevated myocardial infarction) ICD Codes: I21.4 - Non-ST elevation (NSTEMI) myocardial infarction Status: Acute Plan: --had elevated troponin and ST-segment changes consistent with acute CO. 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 Also with a new diagnosis of early stage gastric cancer Plan 1. await extubation 2. monitor CBC 3. no transfusion today. Attending Statement The exam, history, and the medical decision-making described in the above note were completed with the assistance of the mid-level provider. I reviewed and agree with the findings presented. I attest that I had a [id number] encounter with the patient on the same day, and personally performed and documented my assessment and findings in the medical record remains critically ill with respiratory failure ongoing care to address acute issues no blood products today Problem Qualifiers (1) Afib: (2) Sepsis: ePrla Duran Jan 05, 2017 11:00 Brant Bell MD Jan 05, 2017 22:28
--- NOTE | 2017-01-05 12:05 | HHI.CCPN ---
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 He was hypotensive, febrile up to 101 and received IV fluid resuscitation with improvement in his blood pressure. EKG showed ST-T wave changes, and troponin was elevated and peaked at 17.1. The patient has been evaluated by cardiology. For NSTEMI patient underwent PCI with bare metal stent to LCx by Dr. Krause on 11/30/16. The patient had a CT of the abdomen and pelvis on admission which showed marked soft tissue thickening in the distal esophagus concerning for esophageal cancer. The patient was also noted to have liver cirrhosis and mild splenomegaly. Patient has a history of alcohol intake but according to the girlfriend has not had alcoholic drinks for several months. CTA no evidence of pulmonary embolism or pneumonia. Critical care was consulted today for altered mentation, persistent fever, MSSA bacteremia and worsening sepsis. Apparently patient was agitated overnight requiring restraints. He also sustained a fall when he tried to climb out of the bed. CT of the head was negative except for a possible artifact left temporal region. An MRI which was done today came back negative. On my evaluation the ICU patient was very lethargic and tachypneic breathing approximately 35-40. ABG showed respiratory alkalosis. His altered mentation is most likely secondary to severe sepsis, alcohol withdrawal seems less likely. Blood cultures 4/4 growing MSSA, lactic acid 3,6. 12/25: Today underwent EGD with esophageal stent placement. significant bleeding from distal esophagus. GI and anesthesia felt patient should remain intubated for airway protection. In addition, patient persistently hypotensive requiring vasopressors, phenylephrine at 100 mcg/min, and in a flutter RVR on diltiazem drip. On my evaluation, patient was becoming more unstable. Adenosine 6mg iv x 1 was given which confirmed the rhythm as a flutter, but did not convert patient. give that patient was not anticoagulated, risk/benefit of electrical cardioversion at that time was in favor of conservative measures. patient bolused with amiodarone and placed on amiodarone drip, along with aggressive electrolyte replacement. Of note, patient also has new documented diagnosis of dynamic LVOT obstruction due to his LV hypertrophy and hyperdynamic cardiac function. Critical care medicine re-consulted to evaluate and manage his respiratory failure and cardiac dysrhythmias. 12/26: No more bleeding. Will work to extubate and start liquids, continue oral meds, especially beta gutierrez. 12/29: Reconsulted due to A. fib with RVR. Currently on 5 L simple mask. On amiodarone and Cardizem drips. Looks like some pulmonary edema will be actively diuresed. 12/30: Remains in A. fib with RVR. Currently on 10 L simple mask. Continues on amiodarone drip at 0.5 mg per minute and Cardizem drip at 20 mg an hour. Despite diuresis, increasing oxygen requirements. 12/31: Good response to diuresis. Weight still up about 10 kg. Dense infiltrate right chest, increasing FiO2 requirements. 01/01: Continued respiratory failure. FiO2 70% in tight BiPAP with sats 88%. Labored respirations and poor peripheral perfusion. Will need left effusion and pericardium tapped. I predict problems with hypotension if we use sedation - will start neosynephrine then induce. I have discussed the risks of pericardiocentesis and thoracentesis in detail with the patient, especially increased arrhythmia risk, possibly fatal. 01/02: Resting comfortable in bed. FiO2 40%. Arousable and follows commands. Status post pericardiocentesis yesterday. 20 cc past 24 hours. 01/03: Tmax 99.8. FiO2 down to 35%. Remains on Oziel-Synephrine at 70 g per minute. Currently normal sinus rhythm. Will attempt thoracentesis left side today permission obtainable with possible attempt at extubation soon. Initiating TPN for nutrition. 01/04: Resting comfortable in bed. Currently afebrile. #10 Wolof pigtail catheter placed left pleural effusion yesterday. -210 cc overnight. No bowel movement 5 days. Relistor, and enema provided today. Nurse states that that patient possible seizure. CT head/EEG ordered for today. Subjective 01/05: Remains intubated sedated. L pigtail with 1.5 L output since yesterday. EEG normal- no sz. Ct head negative. Cytology from Pericardial fluid pending. Will await cytology prior to deciding on CTS consult for pericardial window Objective Vital Signs Date Time Temp Pulse Resp B/P (MAP) Pulse Ox O2 Delivery O2 Flow Rate FiO2 01/05/17 11:26 35 01/05/17 11:26 97 01/05/17 10:00 70 01/05/17 09:19 110/56 01/05/17 04:00 97.1 16 01/02/17 08:00 Mechanical Ventilator Intake and Output 01/05/17 01/05/17 01/05/17 07:59 15:59 23:59 Output Total 561 ml Balance -561 ml Result Diagram: 01/05/17 0326 01/05/17 0326 Imaging Last Impressions Chest X-Ray 01/03/17 1334 Signed Impressions: Service Date/Time: Tuesday, January 03, 2017 13:42 - CONCLUSION: Stable chest. Pericardial drain. Left-sided chest tube without pneumothorax. Jagjit Tapia MD CT Angiography 12/31/16 0000 Signed Impressions: Service Date/Time: Saturday, December 31, 2016 01:00 - CONCLUSION: 1. Study is negative for pulmonary embolism. 2. Pericardial effusion, diffuse patchy consolidation in both lungs, collapse left lower lobe, bilateral pleural effusions, esophageal stent, similar to yesterday's CT thorax. Kulwant Gupta MD Thoracentesis 12/30/16 0000 Signed Impressions: Service Date/Time: Friday, December 30, 2016 15:34 - CONCLUSION: Uncomplicated CT-guided thoracentesis. Kiran Harding MD Chest CT 12/29/16 0000 Signed Impressions: Service Date/Time: Friday, December 30, 2016 10:56 - CONCLUSION: 1. Moderate bilateral pleural effusions. 2. Areas of consolidation in the upper lobes bilaterally and in the right middle and right lower lobe. There is some combination of consolidation and atelectasis seen in the left lower lobe. Underlying diffuse processes should be considered including edema. 3. Esophageal stent in place. There is increased density within the stent which could be from fluid or soft tissue. 4. Non-specific mildly prominent lymph nodes in the mediastinum. 5. Moderate pericardial effusion. 6. Possible 3rd non-displaced right rib fracture. Washington Chou MD GI Procedure 12/25/16 0000 Signed Impressions: Service Date/Time: December 19:33 - CONCLUSION: Spot film as above. Everett Pollock MD FACR Barium Swallow X-Ray 12/20/16 0000 Signed Impressions: Service Date/Time: Tuesday, December 20, 2016 13:15 - CONCLUSION: 1. The distal half of the esophagus demonstrates irregular luminal narrowing consistent with the patient's history of esophageal adenocarcinoma. 2. Mild dilatation of the esophagus immediately proximal to the esophageal mass. However, there are no signs of obstruction. 3. Small hiatal hernia. Washington Marroquin MD Abdomen MRI 12/17/16 0000 Signed Impressions: Service Date/Time: Saturday, December 17, 2016 13:59 - CONCLUSION: 1. No acute finding is identified to explain the abdominal pain. 2. Stable thickening of the distal esophagus. There is a single mildly enlarged left gastric lymph node measuring 12 x 10 mm. 3. Moderate sized bilateral pleural effusions, left larger than right, with associated compressive atelectasis. Washington Marroquin MD Head CT 12/01/16 0000 Signed Impressions: Service Date/Time: Thursday, December 01, 2016 07:59 - CONCLUSION: 1. Questionable area of low attenuation left temporal lobe could be artifact versus less likely infarct. MRI may be warranted based on clinical history. 2. No midline shift or mass effect. 3. No intraparenchymal hemorrhage. Jagjit Tapia MD Brain MRI 12/01/16 0000 Signed Impressions: Service Date/Time: Thursday, December 01, 2016 12:07 - CONCLUSION: Normal examination. Barrett Rodriguez MD Abdomen X-Ray 12/01/16 0000 Signed Impressions: Service Date/Time: Thursday, December 01, 2016 16:48 - CONCLUSION: No evidence of obstruction. Feeding tube tip in the distal stomach. Barrett Rodriguez MD Abdomen/Pelvis CT 11/29/16 [id number] Signed Impressions: Service Date/Time: Wednesday, November 30, 2016 01:35 - CONCLUSION: 1. Markedly abnormal appearance of the distal esophagus consistent with the history of esophageal carcinoma. 2. Atherosclerotic calcifications of the aorta and iliac vessels. 3. Cirrhotic appearance to the liver with a mildly nodular contour present. Erik Simon MD Objective Remarks GENERAL: Patient is 61 yo male, currently orotracheally intubated SKIN: Warm and dry. Well perfused HEAD: Normocephalic. EYES: No scleral icterus. No injection or drainage. MOUTH: No bleeding. NECK: trachea midline. No JVD. No thrush CARDIOVASCULAR: Currently normal sinus rhythm. S1, S2 no S4. Pericardial rub+. Systolic and diastolic murmur LSB. Pericardial drains with minimal serosanguineous drainage RESPIRATORY: Diminished breath sounds left greater than right. Few crackles appreciated. L pigtail catheter in place GASTROINTESTINAL: Abdomen soft, non-tender, nondistended. MUSCULOSKELETAL: Trace bilateral lower extremity peripheral edema. Single lumen PICC line in left upper extremity. Neuro: Arousable on ventilator, following commands currently. Sedated with propofol and fentanyl drips. Procedures central line/ arterial line placement intubation cardiac catheterization port removal EUS with esophageal stent placement A/P Assessment and Plan NEURO/Psych: Acute metabolic encephalopathy-improving Possible alcohol withdrawal Chronic oxycodone use -Encephalopathy most likely secondary to hypoxia, sepsis -Completed therapy with Thiamine, MVI for EtOH withdrawal Acetaminophen for fever Currently on propofol at 40 mcg/kg per minute/fentanyl drips at 150 g an hour for sedation/analgesia while intubated Goal of RASS -2, Daily sedation vacation Oxycodone for pain management 5-10 every 4 hours when necessary holding tramadol/home medication RESP: Acute hypoxemic respiratory failure - multifactorial History COPD Anterior airway Tobacco abuse Bilateral pleural effusions - Emergently intubated and placed on mechanical ventilation 12/02/16, extubated successfully 12/03/16 - (Unable to visualize cords with direct laryngoscopy. With GlideScope #4 blade Grade 2 view, easy intubation) - DuoNeb every 6 hours scheduled and every 2 hours when necessary - Re intubated 01/01/17 PRVC ventilation 16/550/1/5/[address] chest revealed bilateral pleural effusions. Thoracentesis -1200 cc 12/30. Placement of #10 Wolof pigtail catheter 01/03. -40 cm CV: Atrial fibrillation with RVR currently normal sinus rhythm NSTEMI Dynamic LVOT obstruction Coronary artery disease status post bare metal stent to left circumflex Krause 12/01 Pericardial effusion, tamponade status post pericardiocentesis Cardiac catheterization 12/01 revealed EF around 60%. Left main normal. RCA normal. LAD 70% ostial. Bare stent left circumflex 70%. - Continue ASA 162 mg daily (300 mg VT while nothing by mouth)/Plavix 75 mg daily Currently on amiodarone drip at 0.5 mg/m, Cardizem drip at 2.5 mg an hour and metoprolol 25 mill grams every 6 hours (metoprolol held secondary to no oral intake) Followed by Dr. Adler - cardiology. Due to underlying multiple comorbidities not a candidate for ablation at this time. Recommend medical management - 2-D echo no veg, EF 50-55% Holding home medications of losartan 100 mg, amlodipine 10 mg daily. On atorvastatin 40 by mouth daily for dyslipidemia when able to swallow Pericardiocentesis drains -01/01. Cc. Cultures no growth. Await cytology, if malignant may need pericardial window GI: Invasive adenocarcinoma of the esophagus Liver cirrhosis - Dobhoff unable to be place secondary to esophageal stent - GI following- has biopsy proven invasive adenoca of esophagus - Status post EUS/esophageal stent placement 12/25 - IV Protonix for twice a day continue. Carafate cannot be given secondary to the pass NG tube ITPN goal 60 cc an hour today. Surgery/Dr. Rcih is following. Cindy Parekh notified Thursday. Will reassess Thursday for possible intervention for feeding tube : Acute kidney failure/ATN resolved - Monitor renal function closely. Saxena catheter. -On Lasix 20 IV daily Follow BMP in a.m. ID: Septic shock-resolved MSSA bacteremia [id number] infection status post removal Pseudomonas pneumonia - previously Rapid clinical improvement after [id number] was removed remains off all pressors - Catheter tip culture blood culture and wound culture also positive for MSSA - Continue Rifampin, for synergy, and Cefepime He will need 6 weeks IV Abx - Infectious disease Dr. Nassar. 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 Bell is following - Status post surgical resection for L parotid SCC at [facility] 10/01 --Hematology plans to give weekly Erbitux and XRT outpatient. Transfuse goal hemoglobin greater than 8 ENDO: Hypokalemia Hypo-magnesium Diabetes Hypothyroidism Chronic prednisone use - Electrolyte replacement per protocol - SSI every 6 hours with detemir 20 units every 12 hours. TPN initiated. Holding home medications of metformin 1000 mg twice a day and glipizide 20 mill grams by mouth twice a day - Continue thyroid supplementation with levothyroxine 50 mg daily/home medication *(25 g IV daily while nothing by mouth) . TSH 0.555 on admission Continue prednisone 5 mg by mouth daily - switched to Solu-Medrol 20 mg IV daily PROPH: - Bilateral lower extremity SCDs. No pharmacological prophylaxis secondary to hemoptysis -Pantoprazole 40 iv twice a day Level 3 Bean Delarosa MD Jan 05, 2017 12:05
--- NOTE | 2017-01-05 13:50 | HHI.IDPN ---
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 It was reportedly malignant as well. He presented to the hospital complaining of generalized weakness, abdominal pain and progressive swallowing difficulty over the last 3 weeks. Evaluation in the emergency room revealed abnormal EKG, and he underwent cardiac catheterization. He had non-ST MT, and had revascularization with stent placement of his left circumflex artery. Patient is spiked to 103, and there were 2 blood cultures done yesterday that are now reported as growing staph aureus. Had an infected port that has benson removed. Had a very prolonged bacteremia Notes reviewed D/W RN Temps better Remains on pressors Sputum with Pseudomonas, no sensi yet BC negative so far Has drain in pericardium - fluid exudative, cytology pending Has L CT with serous fluid Antibiotics Cefepime Rifampin Lines Port - removed 12/02 PICC Past Medical History Hypertension Hyperlipidemia CAD Diabetes 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 and he had good margins Recurrent squamous cell carcinoma on the left face, with involvement of the parotid gland, status post surgery at [facility] Recently found to have esophageal mass Past Surgical History Appendectomy Liver Biopsy Resection of a squamous cell carcinoma on the left cheek in 2011 Extensive surgery on the left face and neck for recurrent squamous cell carcinoma Port Placement November 12, 2016 Allergies: Coded Allergies: penicillin G (Unverified Allergy, Mild, Hives, 12/30/16) Objective . Vital Signs Date Time Temp Pulse Resp B/P (MAP) Pulse Ox O2 Delivery O2 Flow Rate FiO2 01/05/17 11:26 35 01/05/17 11:26 97 35 01/05/17 10:00 70 01/05/17 09:19 72 110/56 01/05/17 08:00 68 01/05/17 07:48 99 35 01/05/17 06:00 62 01/05/17 04:15 99 35 01/05/17 04:00 35 01/05/17 04:00 62 01/05/17 04:00 97.1 62 16 107/58 (74) 100 01/05/17 03:40 100 100 01/05/17 02:17 61 111/57 01/05/17 02:00 60 01/05/17 01:28 99 35 01/05/17 00:00 35 01/05/17 00:00 97.8 65 16 112/55 (74) 99 01/05/17 00:00 69 01/04/17 22:00 69 01/04/17 20:26 100 35 01/04/17 20:16 58 109/56 01/04/17 20:16 58 108/57 01/04/17 20:00 97.8 58 16 116/57 (76) 99 01/04/17 20:00 58 01/04/17 20:00 35 01/04/17 18:00 60 01/04/17 18:00 59 108/56 01/04/17 18:00 59 108/56 01/04/17 16:06 99 35 01/04/17 16:00 35 01/04/17 16:00 60 01/04/17 16:00 97.8 60 16 103/54 (70) 99 . Laboratory Tests Test 01/03/17 20:45 01/04/17 03:44 01/05/17 03:26 White Blood Count 10.5 TH/MM3 7.8 TH/MM3 7.4 TH/MM3 Red Blood Count 3.21 MIL/MM3 3.00 MIL/MM3 3.02 MIL/MM3 Hemoglobin 9.0 GM/DL 8.7 GM/DL 8.7 GM/DL Hematocrit 28.1 % 26.3 % 26.7 % Mean Corpuscular Volume 87.7 FL 87.7 FL 88.6 FL Mean Corpuscular Hemoglobin 28.0 PG 29.0 PG 28.9 PG Mean Corpuscular Hemoglobin Concent 31.9 % 33.1 % 32.7 % Red Cell Distribution Width 19.4 % 19.7 % 19.7 % Platelet Count 299 TH/MM3 253 TH/MM3 245 TH/MM3 Mean Platelet Volume 7.8 FL 8.0 FL 8.3 FL Neutrophils (%) (Auto) 81.0 % 78.1 % Lymphocytes (%) (Auto) 11.4 % 12.5 % Monocytes (%) (Auto) 6.4 % 8.1 % Eosinophils (%) (Auto) 0.6 % 0.8 % Basophils (%) (Auto) 0.6 % 0.5 % Neutrophils # (Auto) 6.3 TH/MM3 5.8 TH/MM3 Lymphocytes # (Auto) 0.9 TH/MM3 0.9 TH/MM3 Monocytes # (Auto) 0.5 TH/MM3 0.6 TH/MM3 Eosinophils # (Auto) 0.0 TH/MM3 0.1 TH/MM3 Basophils # (Auto) 0.0 TH/MM3 0.0 TH/MM3 CBC Comment DIFF FINAL DIFF FINAL Differential Comment Laboratory Tests Test 01/04/17 03:44 01/04/17 06:44 01/04/17 21:23 01/05/17 03:26 Blood Urea Nitrogen 14 MG/DL 13 MG/DL Creatinine 0.61 MG/DL 0.55 MG/DL Random Glucose 254 MG/DL 282 MG/DL Total Protein 5.5 GM/DL 5.6 GM/DL Albumin 1.2 GM/DL 1.2 GM/DL Calcium Level 7.7 MG/DL 7.5 MG/DL Phosphorus Level 2.5 MG/DL 2.5 MG/DL Magnesium Level 1.8 MG/DL 1.9 MG/DL Alkaline Phosphatase 86 U/L 86 U/L Aspartate Amino Transf (AST/SGOT) 25 U/L 20 U/L Alanine Aminotransferase (ALT/SGPT) 16 U/L 16 U/L Total Bilirubin 0.5 MG/DL 0.3 MG/DL Sodium Level 134 MEQ/L 136 MEQ/L Potassium Level 3.4 MEQ/L 3.6 MEQ/L 3.6 MEQ/L Chloride Level 94 MEQ/L 98 MEQ/L Carbon Dioxide Level 31.8 MEQ/L 31.6 MEQ/L Anion Gap 8 MEQ/L 6 MEQ/L Estimat Glomerular Filtration Rate 135 ML/MIN 152 ML/MIN Total Creatine Kinase 43 U/L 41 U/L Lipase 60 U/L Microbiology Date/Time Source Procedure Growth Status 01/02/17 20:13 Sputum Endotracheal Gram Stain - Final Resulted 01/02/17 20:13 Sputum Culture - Preliminary Pseudomonas Species Resulted Imaging Chest X-Ray 01/01/17 0000 Signed Impressions: Service Date/Time: December 12:33 - CONCLUSION: 1. Improving diffuse parenchymal infiltrate. 2. Esophageal stent and PICC in good position. 3. There is a pericardial drain present. Benjamin Pollock MD Chest X-Ray 12/31/16 0600 Signed Impressions: Service Date/Time: Saturday, December 31, 2016 03:30 - CONCLUSION: Increasing consolidative infiltrates in the right lower lung, persistence patchy infiltrates in the right upper lung and persistent dense consolidation of the left lower lung. Kulwant Gupta MD CT Angiography 12/31/16 Signed Impressions: Service Date/Time: Saturday, December 31, 2016 01:00 - CONCLUSION: 1. Study is negative for pulmonary embolism. 2. Pericardial effusion, diffuse patchy consolidation in both lungs, collapse left lower lobe, bilateral pleural effusions, esophageal stent, similar to yesterday's CT thorax. Kulwant Gupta MD Last 48 hours Impressions Chest X-Ray 12/26/16599 Signed Impressions: Service Date/Time: Monday, December 26, 2016 03:45 - CONCLUSION: Improving pulmonary edema and effusions, now mild/small. Unchanged moderate cardiomegaly. Washington Beasley MD GI Procedure 12/25/16 Signed Impressions: Service Date/Time: December 19:33 - CONCLUSION: Spot film as above. Everett Pollock MD FACR Chest X-Ray 12/25/16 Signed Impressions: Service Date/Time: December 20:28 - CONCLUSION: ET in good position; increasing congestive failure. Everett Pollock MD FACR Chest X-Ray 12/05/16 06 Signed Impressions: Service Date/Time: Monday, December 05, 2016 03:30 - CONCLUSION: 1. Cardiomegaly and findings of vascular congestion without overt failure. There has been no significant change when compared to the prior exam. Bobby Matias MD Head CT 12/01/16 Signed Impressions: Service Date/Time: Thursday, December 01, 2016 07:59 - CONCLUSION: 1. Questionable area of low attenuation left temporal lobe could be artifact versus less likely infarct. MRI may be warranted based on clinical history. 2. No midline shift or mass effect. 3. No intraparenchymal hemorrhage. Jagjit Tapia MD Brain MRI 12/01/16 Signed Impressions: Service Date/Time: Thursday, December 01, 2016 12:07 - CONCLUSION: Normal examination. Barrett Rodriguez MD Abdomen X-Ray 7/17/17 0000 Signed Impressions: Service Date/Time: Thursday, December 01, 2016 16:48 - CONCLUSION: No evidence of obstruction. Feeding tube tip in the distal stomach. Barrett Rodriguez MD Abdomen/Pelvis CT 11/29/16 2356 Signed Impressions: Service Date/Time: Wednesday, November 30, 2016 01:35 - CONCLUSION: 1. Markedly abnormal appearance of the distal esophagus consistent with the history of esophageal carcinoma. 2. Atherosclerotic calcifications of the aorta and iliac vessels. 3. Cirrhotic appearance to the liver with a mildly nodular contour present. Erik Simon MD CT Angiography 11/29/16 2348 Signed Impressions: Service Date/Time: Wednesday, November 30, 2016 01:35 - CONCLUSION: 1. No evidence for pulmonary embolism or pneumonia. 2. Abnormal appearance of the esophagus with and soft tissue consistent with the history of carcinoma. Erik Simon MD Chest X-Ray 12/03/16 0600 Signed Impressions: Service Date/Time: Saturday, December 03, 2016 04:43 - CONCLUSION: Increasing consolidation in the left lower lung. Bilateral interstitial changes. Niko Wilcox MD Chest X-Ray 12/03/16 0000 Signed Impressions: Service Date/Time: Saturday, December 03, 2016 07:48 - CONCLUSION: 1. Persistent left retrocardiac density and slight interstitial prominence. Jagjit Tapia MD Chest X-Ray 12/02/16 0000 Signed Impressions: Service Date/Time: Friday, December 02, 2016 15:55 - CONCLUSION: Normal examination with endotracheal tube and central lines in good position. Barrett Rodriguez MD Chest X-Ray 12/02/16 0000 Signed Impressions: Service Date/Time: Friday, December 02, 2016 08:24 - CONCLUSION: Mild perihilar vascular congestion. Endotracheal tube is in good position Barrett Rodriguez MD Chest X-Ray 12/02/16 0000 Signed Impressions: Service Date/Time: Friday, December 02, 2016 06:53 - CONCLUSION: Underinflated examination with atelectasis at the lung bases. Given the technique, no acute abnormality or significant interval change is appreciated. Washington Marroquin MD Physical Exam GENERAL: Sedated on the vent. SKIN: Warm and dry. No generalized rash EYES: . No scleral icterus. No injection or drainage. EARS, NOSE AND THROAT: Nose without bleeding or purulent nasal discharge. Orally intubated. NECK: Trachea midline. Supple and not tender, no meningeal signs CARDIOVASCULAR: Irregular rate and rhythm, HR 129. There is a coarse systolic murmur at base of the heart. No rub. RESPIRATORY: Some rhonchi on R. INtact dressing R chest ABDOMEN: Soft, not distended, not tender. Bowel sounds present and normoactive. No organomegaly. EXTREMITIES: No clubbing, cyanosis. Has pitting BLE edema, weeping. No calf tenderness. Well perfused and warm. NEUROLOGICAL: sedated PSYCHIATRIC: unable to assess LINE: Dry dressing on previous port site, healing. PICC site ok : Saxena in place Assessment & Plan Remarks IMPRESSION Respiratory failure - has ?PNA, C/S with Pseudomonas - CHF - S/P RX GNR PNA Recurrent shock MSSA sepsis due to port infection, removed - S/P removal port 12/02 - last (+) BC 12/05 Recurrent squamous cell CA Esophageal CA, S/P EUS and stent placement Lethargy and SOB due to sepsis, resolved - has acidosis, resolved Renal insufficiency, due to sepsis and shock, better Atrial fib, rate still goes up and down New murmur - last echo with new "pseudo" outflow tract obstruction, ?this is source ?Seizure RECOMMENDATION Continue Rifampin, for synergy vs MSSA - follow LFT Continue Cefepime, will cover PSAE and MSSA - await C/S and see if need to be adjusted He will need 6 weeks IV Abx - anticipated end date Jan 15 (6 weeks from last +BC) for the MSSA sepsis Labs weekly while on Abx: CBC, creatinine and LFT - will have HEPAS order and monitor - call if abnormal and with questions Follow new C/S Carola Nassar MD Jan 05, 2017 13:50
[2017-01-05] MEDS: CLINIMIX E 4.25/25 2000 mL- >42 mls/hr IV-CENTRAL SCH ×3 (20:44)
[2017-01-06] VITALS (20 sets, daily range): BP systolic 100–145; BP diastolic 51–66; PULSE 66–98; RESP 14–22; TEMP 97.6–99.6; O2SAT 95–100
[2017-01-06] MEDS: CEFEPIME INJ 2,000 MG in SODIUM CHLORIDE 0.9% INJ 100 ML IV SCH ×2 (01:05→13:24)
[2017-01-06] MEDS: PROPOFOL 1000 MG/100 ML INJ 100 ML IV SCH ×4 (01:06→13:24)
[2017-01-06] MEDS: RESP: ALBUTEROL 2.5 MG/IPRATROPIUM 0.5 MG NEB (SCH) NEB ×3 (03:33→20:11)
[2017-01-06] MEDS: AMIODARONE INJ 450 MG in SODIUM CHLOR 0.9% (EXCEL) INJ 241 ML IV SCH ×2 (04:00→16:45)
[2017-01-06 04:33] LABS: AUTOMATED NEUTROPHIL # 6.6 TH/MM3 (1.8-7.7); BASOPHIL # 0.1 TH/MM3 (0-0.2); BASOPHIL % 1.4 % (0.0-2.0); EOSINOPHIL # 0.1 TH/MM3 (0-0.4); EOSINOPHIL % 0.7 % (0.0-4.0); HEMATOCRIT 25.5 % (39.0-51.0); HEMO FLAGS DIFF FINAL; LYMPH % 10.3 % (9.0-44.0); LYMPHOCYTE # 0.8 TH/MM3 (1.0-4.8); MEAN CELL VOLUME 88.3 FL (80.0-100.0); MEAN CORPUSCULAR HEMOGLOBIN 28.4 PG (27.0-34.0); MEAN CORPUSCULAR HGB CONC 32.2 % (32.0-36.0); MONO % 6.3 % (0.0-8.0); NEUT % 81.3 % (16.0-70.0); PLATELET COUNT 211 TH/MM3 (150-450); RED BLOOD COUNT 2.88 MIL/MM3 (4.50-5.90); RED CELL DISTRIBUTION WIDTH 19.1 % (11.6-17.2); WHITE BLOOD COUNT 8.1 TH/MM3 (4.0-11.0)
[2017-01-06] MEDS: fentaNYL DRIP 250 ML IV SCH (04:51)
[2017-01-06 05:03] LABS: BICARBONATE 33.1 MEQ/L (21.0-32.0); MAGNESIUM 1.7 MG/DL (1.5-2.5); POTASSIUM 3.8 MEQ/L (3.5-5.1)
[2017-01-06 05:05] LABS: CALCIUM-PROTEIN CORRECTED 8.4 MG/DL (8.5-10.1); TOTAL BILIRUBIN ADULT 0.3 MG/DL (0.2-1.0)
[2017-01-06] MEDS: METOPROLOL TARTRATE 25 MG TAB PO SCH ×3 (05:26→17:39)
[2017-01-06] MEDS: LEVOTHYROXINE SODIUM 100 MCG VIAL IV PUSH SCH (05:26)
[2017-01-06] MEDS: INSULIN NovoLIN REGULAR SUPPLEMENTAL SCALE SQ SCH ×3 (05:28→18:00)
[2017-01-06] MEDS: ARTIFICIAL TEARS OPTH SOLN 15 ML BTL EACH EYE SCH ×3 (06:00→22:03)
--- NOTE | 2017-01-06 06:25 | RADRPT ---
EXAM DATE/TIME: 01/06/2017 05:09 This report includes an Addendum and supersedes previous reports for this exam. [facility] COMPARISON: CHEST SINGLE AP, January 05, 2017, 4:09. INDICATIONS : Respiratory disease. MEDICAL HISTORY : Hiatal hernia. Hypertension. Chronic obstructive pulmonary disease. SURGICAL HISTORY : None. ENCOUNTER: Subsequent ACUITY: 1 month PAIN SCORE: Non-responsive. LOCATION: Bilateral chest FINDINGS: Endotracheal tube in satisfactory position. Basilar airspace disease and effusion similar to December 17 1. Catheter overlying lower chest presumably in pericardial space is unchanged. Left PICC line is in superior vena cava. CONCLUSION: 1. Support apparatus unchanged. Stable bilateral airspace disease and effusions. Kervin Krause MD on January 06, 2017 at 6:23 Board Certified Radiologist. This report was verified electronically. ADDENDUM: Faintly visualized overlying the spine in the mid to distal esophageal region is a esophageal stent e xtending approximately 13 cm. The distal tip at the expected location of the esophagogastric junction assuming no surgery. Erik Simon MD on January 06, 2017 at 11:48 Board Certified Radiologist. This report was verified electronically.
[2017-01-06] MEDS: SUCRALFATE 1 GM/10 ML CUP PO SCH ×4 (07:00→21:00)
[2017-01-06] MEDS: CHLORHEXIDINE 0.12% (ORAL KIT) 15 ML CUP MT SCH ×4 (07:19→20:00)
[2017-01-06] MEDS: DOCUSATE SODIUM 50 MG/SENNA 8.6 MG TAB PO SCH ×2 (08:47→21:00)
[2017-01-06] MEDS: MULTIVITAMIN TAB PO SCH (08:47)
[2017-01-06] MEDS: CLOPIDOGREL 75 MG TAB PO SCH (08:47)
[2017-01-06] MEDS: THIAMINE HCL 100 MG TAB PO SCH (08:47)
[2017-01-06] MEDS: POLYETHYLENE GLYCOL 17 GM PKG PO SCH (08:47)
[2017-01-06] MEDS: SODIUM CHLORIDE 0.9% FLUSH 10 ML FLUSH IV FLUSH SCH ×3 (08:47→20:38)
[2017-01-06] MEDS: FUROSEMIDE 20 MG/2 ML VIAL IV PUSH SCH ×2 (08:59→20:38)
[2017-01-06] MEDS: ASPIRIN 300 MG SUPP RECTAL SCH (09:00)
[2017-01-06] MEDS: methylPREDNISolone SOD SUCC 40 MG/1 ML VIAL IV PUSH SCH (09:00)
[2017-01-06] MEDS: PANTOPRAZOLE SODIUM 40 MG VIAL IV PUSH SCH ×2 (09:00→22:02)
[2017-01-06] MEDS: INSULIN DETEMIR 100 UNITS/ML VIAL SQ SCH ×3 (09:00→22:56)
[2017-01-06] MEDS: RIFAMPIN INJ 300 MG in SODIUM CHLORIDE 0.9% INJ 100 ML IV SCH ×2 (09:02→22:01)
[2017-01-06] MEDS ORDERED: FUROSEMIDE 20 MG/2 ML VIAL IV PUSH ONE (10:15)
--- NOTE | 2017-01-06 10:30 | HHI.CCPN ---
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 He was hypotensive, febrile up to 101 and received IV fluid resuscitation with improvement in his blood pressure. EKG showed ST-T wave changes, and troponin was elevated and peaked at 17.1. The patient has been evaluated by cardiology. For NSTEMI patient underwent PCI with bare metal stent to LCx by Dr. Krause on 11/30/16. The patient had a CT of the abdomen and pelvis on admission which showed marked soft tissue thickening in the distal esophagus concerning for esophageal cancer. The patient was also noted to have liver cirrhosis and mild splenomegaly. Patient has a history of alcohol intake but according to the girlfriend has not had alcoholic drinks for several months. CTA no evidence of pulmonary embolism or pneumonia. Critical care was consulted today for altered mentation, persistent fever, MSSA bacteremia and worsening sepsis. Apparently patient was agitated overnight requiring restraints. He also sustained a fall when he tried to climb out of the bed. CT of the head was negative except for a possible artifact left temporal region. An MRI which was done today came back negative. On my evaluation the ICU patient was very lethargic and tachypneic breathing approximately 35-40. ABG showed respiratory alkalosis. His altered mentation is most likely secondary to severe sepsis, alcohol withdrawal seems less likely. Blood cultures 4/4 growing MSSA, lactic acid 3,6. 12/25: Today underwent EGD with esophageal stent placement. significant bleeding from distal esophagus. GI and anesthesia felt patient should remain intubated for airway protection. In addition, patient persistently hypotensive requiring vasopressors, phenylephrine at 100 mcg/min, and in a flutter RVR on diltiazem drip. On my evaluation, patient was becoming more unstable. Adenosine 6mg iv x 1 was given which confirmed the rhythm as a flutter, but did not convert patient. give that patient was not anticoagulated, risk/benefit of electrical cardioversion at that time was in favor of conservative measures. patient bolused with amiodarone and placed on amiodarone drip, along with aggressive electrolyte replacement. Of note, patient also has new documented diagnosis of dynamic LVOT obstruction due to his LV hypertrophy and hyperdynamic cardiac function. Critical care medicine re-consulted to evaluate and manage his respiratory failure and cardiac dysrhythmias. 12/26: No more bleeding. Will work to extubate and start liquids, continue oral meds, especially beta gutierrez. 12/29: Reconsulted due to A. fib with RVR. Currently on 5 L simple mask. On amiodarone and Cardizem drips. Looks like some pulmonary edema will be actively diuresed. 12/30: Remains in A. fib with RVR. Currently on 10 L simple mask. Continues on amiodarone drip at 0.5 mg per minute and Cardizem drip at 20 mg an hour. Despite diuresis, increasing oxygen requirements. 12/31: Good response to diuresis. Weight still up about 10 kg. Dense infiltrate right chest, increasing FiO2 requirements. 01/01: Continued respiratory failure. FiO2 70% in tight BiPAP with sats 88%. Labored respirations and poor peripheral perfusion. Will need left effusion and pericardium tapped. I predict problems with hypotension if we use sedation - will start neosynephrine then induce. I have discussed the risks of pericardiocentesis and thoracentesis in detail with the patient, especially increased arrhythmia risk, possibly fatal. 01/02: Resting comfortable in bed. FiO2 40%. Arousable and follows commands. Status post pericardiocentesis yesterday. 20 cc past 24 hours. 01/03: Tmax 99.8. FiO2 down to 35%. Remains on Oziel-Synephrine at 70 g per minute. Currently normal sinus rhythm. Will attempt thoracentesis left side today permission obtainable with possible attempt at extubation soon. Initiating TPN for nutrition. 01/04: Resting comfortable in bed. Currently afebrile. #10 German pigtail catheter placed left pleural effusion yesterday. -210 cc overnight. No bowel movement 5 days. Relistor, and enema provided today. Nurse states that that patient possible seizure. CT head/EEG ordered for today. 01/05: Remains intubated sedated. L pigtail with 1.5 L output since yesterday. EEG normal- no sz. Ct head negative. Cytology from Pericardial fluid pending. Will await cytology prior to deciding on CTS consult for pericardial window Subjective 01/06: On minimal sedation. Remains on Amiodarone, Cardizem gtt. On oziel- synephrine to keep MAP >65. Pericardial drain with only minimal out put-will remove drain today. Bedside echo today. Additional Lasix and 1 dose of Diamox ordered for fluid overload Objective Vital Signs Date Time Temp Pulse Resp B/P (MAP) Pulse Ox O2 Delivery O2 Flow Rate FiO2 01/06/17 09:20 99 35 01/06/17 08:00 98.7 68 16 100/52 (68) 01/02/17 08:00 Mechanical Ventilator Intake and Output 01/06/17 01/06/17 01/07/17 08:00 16:00 00:00 Intake Total 1352 ml 100 ml Output Total 1322 ml Balance 30 ml 100 ml Result Diagram: 01/06/17 0404 01/06/17 0404 Imaging Last Impressions Chest X-Ray 01/03/17 1334 Signed Impressions: Service Date/Time: Tuesday, January 03, 2017 13:42 - CONCLUSION: Stable chest. Pericardial drain. Left-sided chest tube without pneumothorax. Jagjit Tapia MD CT Angiography 12/31/16 0000 Signed Impressions: Service Date/Time: Saturday, December 31, 2016 01:00 - CONCLUSION: 1. Study is negative for pulmonary embolism. 2. Pericardial effusion, diffuse patchy consolidation in both lungs, collapse left lower lobe, bilateral pleural effusions, esophageal stent, similar to yesterday's CT thorax. Kulwant Gupta MD Thoracentesis 12/30/16 0000 Signed Impressions: Service Date/Time: Friday, December 30, 2016 15:34 - CONCLUSION: Uncomplicated CT-guided thoracentesis. Kiran Harding MD Chest CT 12/29/16 0000 Signed Impressions: Service Date/Time: Friday, December 30, 2016 10:56 - CONCLUSION: 1. Moderate bilateral pleural effusions. 2. Areas of consolidation in the upper lobes bilaterally and in the right middle and right lower lobe. There is some combination of consolidation and atelectasis seen in the left lower lobe. Underlying diffuse processes should be considered including edema. 3. Esophageal stent in place. There is increased density within the stent which could be from fluid or soft tissue. 4. Non-specific mildly prominent lymph nodes in the mediastinum. 5. Moderate pericardial effusion. 6. Possible 3rd non-displaced right rib fracture. Washington Chou MD GI Procedure 12/25/16 0000 Signed Impressions: Service Date/Time: December 19:33 - CONCLUSION: Spot film as above. Everett Pollock MD FACR Barium Swallow X-Ray 12/20/16 0000 Signed Impressions: Service Date/Time: Tuesday, December 20, 2016 13:15 - CONCLUSION: 1. The distal half of the esophagus demonstrates irregular luminal narrowing consistent with the patient's history of esophageal adenocarcinoma. 2. Mild dilatation of the esophagus immediately proximal to the esophageal mass. However, there are no signs of obstruction. 3. Small hiatal hernia. Washington Marroquin MD Abdomen MRI 12/17/16 0000 Signed Impressions: Service Date/Time: Saturday, December 17, 2016 13:59 - CONCLUSION: 1. No acute finding is identified to explain the abdominal pain. 2. Stable thickening of the distal esophagus. There is a single mildly enlarged left gastric lymph node measuring 12 x 10 mm. 3. Moderate sized bilateral pleural effusions, left larger than right, with associated compressive atelectasis. Washington Marroquin MD Head CT 12/01/16 0000 Signed Impressions: Service Date/Time: Thursday, December 01, 2016 07:59 - CONCLUSION: 1. Questionable area of low attenuation left temporal lobe could be artifact versus less likely infarct. MRI may be warranted based on clinical history. 2. No midline shift or mass effect. 3. No intraparenchymal hemorrhage. Jagjit Tapia MD Brain MRI 12/01/16 0000 Signed Impressions: Service Date/Time: Thursday, December 01, 2016 12:07 - CONCLUSION: Normal examination. Barrett Rodriguez MD Abdomen X-Ray 12/01/16 0000 Signed Impressions: Service Date/Time: Thursday, December 01, 2016 16:48 - CONCLUSION: No evidence of obstruction. Feeding tube tip in the distal stomach. Barrett Rodriguez MD Abdomen/Pelvis CT 11/29/16 [id number] Signed Impressions: Service Date/Time: Wednesday, November 30, 2016 01:35 - CONCLUSION: 1. Markedly abnormal appearance of the distal esophagus consistent with the history of esophageal carcinoma. 2. Atherosclerotic calcifications of the aorta and iliac vessels. 3. Cirrhotic appearance to the liver with a mildly nodular contour present. Erik Simon MD Objective Remarks GENERAL: Patient is 61 yo male, currently orotracheally intubated SKIN: Warm and dry. Well perfused HEAD: Normocephalic. EYES: No scleral icterus. No injection or drainage. MOUTH: No bleeding. NECK: trachea midline. No JVD. No thrush CARDIOVASCULAR: Currently normal sinus rhythm. S1, S2 no S4. Pericardial rub+. Systolic and diastolic murmur LSB. Pericardial drains with minimal serosanguineous drainage RESPIRATORY: Diminished breath sounds left greater than right. Few crackles appreciated. L pigtail catheter in place approx 600 ml output in 24 hours GASTROINTESTINAL: Abdomen soft, non-tender, nondistended. MUSCULOSKELETAL: Trace bilateral lower extremity peripheral edema. Single lumen PICC line in left upper extremity. Neuro: Arousable on ventilator, following commands currently. On minimal dose of propofol and fentanyl drips. Procedures central line/ arterial line placement intubation cardiac catheterization port removal EUS with esophageal stent placement A/P Assessment and Plan NEURO/Psych: Acute metabolic encephalopathy-improving Possible alcohol withdrawal Chronic oxycodone use Encephalopathy most likely secondary to hypoxia, sepsis, improving clinically Completed therapy with Thiamine, MVI for EtOH withdrawal. Acetaminophen for fever Currently on propofol at 5 mcg/kg per minute/fentanyl drips at 150 g an hour for sedation/analgesia while intubated Goal of RASS -2, Daily sedation vacation. Oxycodone for pain management 5-10 every 4 hours when necessary Holding tramadol/home medication RESP: Acute hypoxemic respiratory failure - multifactorial History COPD Anterior airway Tobacco abuse Bilateral pleural effusions - Emergently intubated and placed on mechanical ventilation 12/02/16, extubated successfully 12/03/16 - (Unable to visualize cords with direct laryngoscopy. With GlideScope #4 blade Grade 2 view, easy intubation) - Re intubated 01/01/17 PRVC ventilation 16/550/1/5/35 Ventilator bundle. DuoNeb every 6 hours scheduled and every [address] chest revealed bilateral pleural effusions. Thoracentesis -1200 cc 12/30. Placement of #10 German pigtail catheter 01/03. -40 cm, 600 ml output in 24 hours CV: Pericardial effusion, tamponade status post pericardiocentesis 01/01/17 Atrial fibrillation with RVR currently normal sinus rhythm NSTEMI Dynamic LVOT obstruction Coronary artery disease status post bare metal stent to left circumflex Krause 12/01 Cardiac catheterization 12/01 revealed EF around 60%. Left main normal. RCA normal. LAD 70% ostial. Bare stent left circumflex 70%. - Continue ASA 162 mg daily (300 mg VA while nothing by mouth)/Plavix 75 mg daily Currently on amiodarone drip at 0.5 mg/m, Cardizem drip at 2.5 mg an hour. Metoprolol 25 mill grams every 6 hours (metoprolol held secondary to no oral intake) Followed by Dr. Adler - cardiology. Due to underlying multiple comorbidities not a candidate for ablation at this time. Recommend medical management - 2-D echo no veg, EF 50-55% Holding home medications of losartan 100 mg, amlodipine 10 mg daily. On atorvastatin 40 by mouth daily for dyslipidemia when able to swallow Pericardiocentesis drains -01/01. Cc. Cultures no growth. Minimal output <2-4 ml for 48 hours. Remove drain today Await cytology, if malignant may need pericardial window GI: Invasive adenocarcinoma of the esophagus Liver cirrhosis - Dobhoff unable to be place secondary to esophageal stent - GI following- has biopsy proven invasive adenoca of esophagus - Status post EUS/esophageal stent placement 12/25 - IV Protonix for twice a day continue. Carafate cannot be given secondary to the pass NG tube TPN goal 60 cc an hour today. Surgery/Dr. Rich is following. D/W Cindy Parekh. Re evaluate for Lap G tube : Acute kidney failure/ATN resolved - Monitor renal function closely. Saxena catheter. -On Lasix 20 IV daily, increase to BID and additional 20 mg IV today Follow BMP in a.m. ID: Septic shock-resolved MSSA bacteremia [id number] infection status post removal Pseudomonas pneumonia - Previously Rapid clinical improvement after [id number] was removed remains off all pressors - Catheter tip culture blood culture and wound culture also positive for MSSA - Continue Rifampin, for synergy, and Cefepime He will need 6 weeks IV Abx - Infectious disease Dr. Nassar. 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 Bell is following - Status post surgical resection for L parotid SCC at [facility] 10/01 --Hematology plans to give weekly Erbitux and XRT outpatient. Transfuse goal hemoglobin greater than 8 ENDO: Hypokalemia Hypo-magnesium Diabetes Hypothyroidism Chronic prednisone use - Electrolyte replacement per protocol - SSI every 6 hours with detemir 20 units every 12 hours, increased to 30 U q12. TPN initiated. Holding home medications of metformin 1000 mg twice a day and glipizide 20 mill grams by mouth twice a day - Continue thyroid supplementation with levothyroxine 50 mg daily/home medication *(25 g IV daily while nothing by mouth) . TSH 0.555 on admission Continue prednisone 5 mg by mouth daily - switched to Solu-Medrol 20 mg IV daily PROPH: - Bilateral lower extremity SCDs. No pharmacological prophylaxis secondary to hemoptysis -Pantoprazole 40 iv twice a day CCT 35 MIN Critically ill with multiorgan failure, but stable. Increased IV lasix to improve output. Plan for bedside echo removal of Pericardial drain Bean Delarosa MD Jan 06, 2017 10:30
[2017-01-06] MEDS: PHENYLEPHRINE INJ 160 MG in SODIUM CHLORID 0.9% 500 ML INJ 500 ML IV SCH (11:20)
[2017-01-06] MEDS: ALBUMIN HUMAN 25% 25 GM/100 ML BAGP IV SCH ×2 (11:25→22:56)
--- NOTE | 2017-01-06 11:31 | HHI.GIFU ---
Subjective Remarks Intubated on vent. Per RN pt has been regurgitating gastric secretions since yesterday, increased this morning, that she is having to suction. (Amalia Cardoza) Objective Vitals I&O Vital Signs Date Time Temp Pulse Resp B/P (MAP) Pulse Ox O2 Delivery O2 Flow Rate FiO2 01/06/17 11:20 70 101/50 01/06/17 10:40 97 35 01/06/17 09:20 99 35 01/06/17 09:20 35 01/06/17 08:00 98.7 68 16 100/52 (68) 99 01/06/17 08:00 68 01/06/17 08:00 35 01/06/17 07:41 98 35 01/06/17 07:00 68 100/53 01/06/17 07:00 68 100/53 01/06/17 06:00 68 01/06/17 04:00 74 01/06/17 04:00 35 01/06/17 04:00 75 103/51 01/06/17 04:00 97.9 74 16 108/51 (70) 98 01/06/17 03:58 74 112/54 01/06/17 03:36 98 35 01/06/17 03:27 70 105/52 01/06/17 02:00 68 01/06/17 00:51 98 35 01/06/17 00:00 72 01/06/17 00:00 99.6 72 16 116/56 (76) 98 01/06/17 00:00 35 01/05/17 22:40 73 122/56 01/05/17 22:24 73 128/60 01/05/17 22:24 73 128/60 01/05/17 22:00 73 01/05/17 21:39 97 35 01/05/17 20:00 65 01/05/17 20:00 35 01/05/17 20:00 97.5 65 16 105/57 (73) 99 01/05/17 18:00 62 01/05/17 16:00 72 01/05/17 16:00 35 01/05/17 16:00 98.5 72 16 124/58 (80) 96 01/05/17 15:49 99 35 01/05/17 14:00 62 01/05/17 12:00 99.0 70 16 103/51 (68) 96 01/05/17 12:00 70 01/05/17 12:00 35 I/O 01/05/17 01/05/17 01/05/17 01/06/17 01/06/17 01/06/17 07:00 15:00 23:00 07:00 15:00 23:00 Intake Total 703 ml 1352 ml 444 ml Output Total 561 ml 1322 ml Balance -561 ml 703 ml 30 ml 444 ml IV Total 703 ml 1352 ml 444 ml Output Urine Total 550 ml 700 ml Chest Tube Drainage Total 5 ml 620 ml Drainage Total 6 ml 2 ml # Bowel Movements 0 0 Laboratory Laboratory Tests Test 01/06/17 04:04 White Blood Count 8.1 Red Blood Count 2.88 Hemoglobin 8.2 Hematocrit 25.5 Mean Corpuscular Volume 88.3 Mean Corpuscular Hemoglobin 28.4 Mean Corpuscular Hemoglobin Concent 32.2 Red Cell Distribution Width 19.1 Platelet Count 211 Mean Platelet Volume 8.0 Neutrophils (%) (Auto) 81.3 Lymphocytes (%) (Auto) 10.3 Monocytes (%) (Auto) 6.3 Eosinophils (%) (Auto) 0.7 Basophils (%) (Auto) 1.4 Neutrophils # (Auto) 6.6 Lymphocytes # (Auto) 0.8 Monocytes # (Auto) 0.5 Eosinophils # (Auto) 0.1 Basophils # (Auto) 0.1 CBC Comment DIFF FINAL Differential Comment Blood Urea Nitrogen 13 Creatinine 0.54 Random Glucose 273 Total Protein 5.3 Albumin 1.1 Calcium Level 7.4 Magnesium Level 1.7 Alkaline Phosphatase 84 Aspartate Amino Transf (AST/SGOT) 19 Alanine Aminotransferase (ALT/SGPT) 15 Total Bilirubin 0.3 Sodium Level 135 Potassium Level 3.8 Chloride Level 97 Carbon Dioxide Level 33.1 Anion Gap 5 Estimat Glomerular Filtration Rate 156 Protein Corrected Calcium 8.4 Date/Time Source Procedure Growth Status 01/02/17 06:00 Blood Peripheral Aerobic Blood Culture - Preliminary NO GROWTH IN 4 DAYS Resulted 01/02/17 06:00 Blood Peripheral Anaerobic Blood Culture - Preliminary NO GROWTH IN 4 DAYS Resulted 01/01/17 11:30 Fluid Pericardial Fluid Gram Stain - Final Complete 01/01/17 11:30 Fluid Pericardial Fluid Body Fluid Culture - Final NO GROWTH IN 72 HRS.--AEROBICALLY OR ... Complete 12/24/16 12:42 Stool Stool Stool Occult Blood (DAINA) - Final HEMOCCULT NEGATIVE Complete 01/02/17 20:13 Sputum Endotracheal Gram Stain - Final Resulted 01/02/17 20:13 Sputum Culture - Preliminary Pseudomonas Species Resulted 12/01/16 17:00 Urine Catheterized Urine Urine Culture - Final Staphylococcus Aureus Complete 12/02/16 20:00 Catheter Tip Other Wound Culture - Final Staphylococcus Aureus Complete Imaging Last Impressions Chest X-Ray 01/05/17 0600 Signed Impressions: Service Date/Time: Thursday, January 05, 2017 04:09 - CONCLUSION: 1. Support apparatus as above. Bilateral mostly basilar airspace disease similar in appearance to January 04. Kervin Krause MD Abdomen X-Ray 01/05/17 0600 Signed Impressions: Service Date/Time: Thursday, January 05, 2017 04:11 - CONCLUSION: 1. Residual contrast in large bowel. No evidence for obstruction. Kervin Krause MD Head CT 01/04/17 0000 Signed Impressions: Service Date/Time: Thursday, January 05, 2017 03:41 - CONCLUSION: 1. No acute intracranial abnormalities. Fluid in the mastoid air cells characteristic of mastoiditis. Kervin Krause MD CT Angiography 12/31/16 0000 Signed Impressions: Service Date/Time: Saturday, December 31, 2016 01:00 - CONCLUSION: 1. Study is negative for pulmonary embolism. 2. Pericardial effusion, diffuse patchy consolidation in both lungs, collapse left lower lobe, bilateral pleural effusions, esophageal stent, similar to yesterday's CT thorax. Kulwant Gupta MD Thoracentesis 12/30/16 0000 Signed Impressions: Service Date/Time: Friday, December 30, 2016 15:34 - CONCLUSION: Uncomplicated CT-guided thoracentesis. Kiran Harding MD Chest CT 12/29/16 0000 Signed Impressions: Service Date/Time: Friday, December 30, 2016 10:56 - CONCLUSION: 1. Moderate bilateral pleural effusions. 2. Areas of consolidation in the upper lobes bilaterally and in the right middle and right lower lobe. There is some combination of consolidation and atelectasis seen in the left lower lobe. Underlying diffuse processes should be considered including edema. 3. Esophageal stent in place. There is increased density within the stent which could be from fluid or soft tissue. 4. Non-specific mildly prominent lymph nodes in the mediastinum. 5. Moderate pericardial effusion. 6. Possible 3rd non-displaced right rib fracture. Washington Chou MD GI Procedure 12/25/16 0000 Signed Impressions: Service Date/Time: December 19:33 - CONCLUSION: Spot film as above. Everett Pollock MD FACR Barium Swallow X-Ray 12/20/16 0000 Signed Impressions: Service Date/Time: Tuesday, December 20, 2016 13:15 - CONCLUSION: 1. The distal half of the esophagus demonstrates irregular luminal narrowing consistent with the patient's history of esophageal adenocarcinoma. 2. Mild dilatation of the esophagus immediately proximal to the esophageal mass. However, there are no signs of obstruction. 3. Small hiatal hernia. Washington Marroquin MD Abdomen MRI 12/17/16 0000 Signed Impressions: Service Date/Time: Saturday, December 17, 2016 13:59 - CONCLUSION: 1. No acute finding is identified to explain the abdominal pain. 2. Stable thickening of the distal esophagus. There is a single mildly enlarged left gastric lymph node measuring 12 x 10 mm. 3. Moderate sized bilateral pleural effusions, left larger than right, with associated compressive atelectasis. Washington Marroquin MD Brain MRI 12/01/16 0000 Signed Impressions: Service Date/Time: Thursday, December 01, 2016 12:07 - CONCLUSION: Normal examination. Barrett Rodriguez MD Abdomen/Pelvis CT 11/29/16 7206 Signed Impressions: Service Date/Time: Wednesday, November 30, 2016 01:35 - CONCLUSION: 1. Markedly abnormal appearance of the distal esophagus consistent with the history of esophageal carcinoma. 2. Atherosclerotic calcifications of the aorta and iliac vessels. 3. Cirrhotic appearance to the liver with a mildly nodular contour present. Erik Simon MD Physical Exam HEENT: Normocephalic; atraumatic; no jaundice. CHEST: coarse CARDIAC: RRR, 2/6 systolic murmur ABDOMEN: Soft, obese, nondistended, nontender; no hepatosplenomegaly; bowel sounds x 4 EXTREMITIES: Trace edema SKIN: Normal; no rash; no jaundice. (Amalia Cardoza) Assessment and Plan Plan ASSESSMENT: - Odynophagia/Dysphagia. Worsening since Barium Swallow on 12/[address] following, pureed diet. Barium Swallow X-Ray 12/20/16--1. The distal half of the esophagus demonstrates irregular luminal narrowing consistent with the patient's history of esophageal adenocarcinoma. 2. Mild dilatation of the esophagus immediately proximal to the esophageal mass. However, there are no signs of obstruction. 3. Small hiatal hernia. Also bringing up small to moderate amount of bloody frothy secretions. s/p EUS with esophageal stent placement --> esophageal ca T3 N0 Mx, large friable mass with oozing, food and debris in esohagus, lengthy process to clean out. On TPN, pt now regurgitating gastric secretions, cannot do UGI with gastrografin b/c pt cannot have NGT or OGT. Consider UGI w/ gastrografin when pt extubated - Upper GIB. He was bringing up bloody frothy secretions- small to moderate amount, but has not had any further episodes. HH stable. PPI - Esophageal cancer. PET Scan (10/28/16)----> negative examination of the head and neck, findings characteristic of esophageal neoplasm. S/P EGD/Colonoscopy (11/20/16)----> There was a long stricture i the mid esophagus and distal esophagus, multiple biopsies were performed, the mucosa of the stomach appeared normal, duodenal mucosa showed no abnormalities in the entire duodenum, retroflexed views revealed a small hiatal hernia; nine sessile polyps ranging from 4-12 mm in size were found at the cecum, in the ascending colon, descending colon, sigmoid colon, and rectum; polypectomy was performed using snare cautery, moderate diverticulosis was noted in the left colon, retroflexed views revealed internal grade I hemorrhoids, a digital rectal exam was performed and revealed no abnormalities of the anus. Pathology revealed invasive adenocarcinoma- distal esophagus, descending colon polyp and rectosigmoid polyp both benign hyperplastic colonic polyp, no adenomatous change or malignancy is seen. S/P XRT Simulation. Plan is for erbitux, radiation as outpatient. EUS as above - Constipation. (+) BM. Miralax - Abnormal imaging of the liver on CT scan, consistent with cirrhosis. Abdomen/ Pelvis CT (11/29/16)----> 1. Markedly abnormal appearance of the distal esophagus consistent with the history of esophageal carcinoma. 2. Atherosclerotic calcifications of the aorta and iliac vessels. 3. Cirrhotic appearance to the liver with a mildly nodular contour present. Abdomen MRI 12/17/16--1. No acute finding is identified to explain the abdominal pain. 2. Stable thickening of the distal esophagus. There is a single mildly enlarged left gastric lymph node measuring 12 x 10 mm. 3. Moderate sized bilateral pleural effusions, left larger than right, with associated compressive atelectasis. Unclear if he has hx of cirrhosis. There is mention of hx of HCV in EMR, but patient has had undetectable viral load as far back as 2001. Pt does report he has a history of HCV and was successfully treated with Interferon/ribavirin in the past. Iron saturation 4.1%, Ferritin 124, Hepatitis C antibodies (+), viral load undetectable, TERRIE negative, ASMA < 20.0, AMA neg, Ceruloplasmin 40 and alpha 1 antitrypsin 298. Labs and imaging consistent with cirrhosis. Pt does not currently drink, but states that he was a heavy drinker in the past. LFT stable. - Afib with RVR. Rate controlled. Cardiology following. - Sepsis/Bacteremia/UTI. Urine and Bcx with Staphylococcus aureus. S/P removal of infusaport by GS (12/02). Rpt bcx no growth. Ancef----> 01/15. - AMS, Acute metabolic encephalopathy. Head CT (12/01/16)-----> 1. Questionable area of low attenuation left temporal lobe could be artifact versus less likely infarct. MRI may be warranted based on clinical history. 2. No midline shift or mass effect. 3. No intraparenchymal hemorrhage. Brain MRI (12/01/16 )----> Normal examination. Lethargic, but awakens and follows commands. Confused. - Resp. Failure. Chest X-Ray (12/05/16)----> 1. Cardiomegaly and findings of vascular congestion without overt failure. There has been no significant change when compared to the prior exam. S/P Extubation on 12/03. Solumerol, nebs, - NSTEMI, CAD. S/P left heart catheterization (11/30/16) with Dr. Murillo and this revealed RCA 10% lesion mid segment, mild calcifications left main, LAD with calcification from it's proximal segment to its midsegment however, with no significant obstructive lesions, The LAD is giving off to a diagonal which has a 70% lesion in its ostial segment, left circumflex artery with a proximal clot thrombus, S/P percutaneous coronary intervention/bare metal stent to proximal left circumflex. ASA and Plavix, as well as aggressive optimization of coronary artery disease. 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 S/P mohs surgery by a florist designer in September of 2015 and shortly after this, developed a mass near the surgical area. S/P at [facility] with Dr. Valdovinos in June of 2016----> underwent extensive head and neck surgery involving a parotidectomy and radical neck dissection in September of 2016. Because of high risk features of local recurrence with perineural invasion and positive margins, it was recommended that he have concurrent chemoradiation therapy. He was evaluated by Dr. Cross for radiation and seen by Dr. Bell for oncology. PET Scan ()---> negative examination of the head and neck, findings characteristic of esophageal neoplasm. Direct visualization is recommended. - Hx HTN, Hyperlipidemia, DM. per attending. PLAN: - request addendum to 01/06 CXR to eval stent position - consider UGI with gastrografin when pt extubated - Monitor HH, transfuse as necessary - Cont. PPI - Cont. Carafate - Cont. Miralax - Monitor labs - Supportive care Patient seen and examined by Dr. Nails and myself and this note is written on his behalf. (Amalia Cardoza) Physician Comments Seen and examined, plan as above, will check X-Ray for stent placement, consider Gastrografin after extubation. (Quintin Nails MD) Amalia Cardoza Jan 06, 2017 11:31 Quintin Nails MD Jan 06, 2017 16:30
[2017-01-06] MEDS ORDERED: POTASSIUM CHLOR 40 MEQ PREMIX 100 ML IV ONE (12:00)
--- NOTE | 2017-01-06 12:02 | HHI.HCPN ---
Reason for visit a. To assist with evaluation and management of symptoms including: Pain, shortness of breath and debility. b. To assist medical decision maker(s) with: better understanding of current medical conditions; weighing benefits/burdens of medical treatment options; making medical treatment decisions. . Subjective/Interval History Mr. 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 Clinical course complicated by NSTEMI, patient underwent PCI with bare metal stents on 11/30/16. Clinical course further complicated by persistent fever, MSSA bacteremia, worsening sepsis, A. fib with RVR and persistent respiratory failure. Clinical course complicated by hypoxemic respiratory failure required intubation and mechanical ventilation and cardiac tamponade requiring pericardiocentesis on 01/01/17. Patient seen in ICU, he remains orally intubated on mechanical ventilation. Sedated, unresponsive to verbal or tactile stimuli. Remains on amiodarone and Cardizem drip. Ongoing Oziel-Synephrine drip to keep map over 65. Pericardial drain has been removed today. Patient with left-sided chest tube, plan for right-sided chest replacement today. 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 Reports of increased gastric secretions regurgitation since yesterday, patient with history of esophageal cancer status post stent placement. Patient being followed by GI. Patient on TPN. Laboratory workup today revealing WBC 8.1, Hgb 8.2, platelet count 211. Sodium 135, potassium 3.8, BUN/creatinine 13/ 0.54. Albumin 1.1. Case discussed with bedside RN. Telephone conversation with patient's girlfriend Luly Bautista, medical update provided. She reports that she will be visiting patient later this afternoon, daughter Mena to visit patient tomorrow morning. Shared concerns of patient's clinical condition, discussed that he is still at high risk for further complications, continue decline and given his respiratory condition, multiple ongoing chronic comorbidities and profound physical deconditioning/debility. Girlfriend Luly receptive to palliative care follow up. Ongoing emotional support and active listening provided. Telephone call to patient's daughter tanika San message in voicemail. . Family/friend interactions See interval note. . Advance Directives Living Will: Never completed Health Care Surrogate: Copy in medical record Durable Power of Traffic Director: Never completed Advance Directive Specifics Date completed: 12/25/16. . Health Care Surrogate(s): Patient designated his daughter Mena La AND girlfriend Luly Bautista as co- healthcare surrogate decision makers. . Documented care wishes: No living will. . Significant change in goals: Goals of care remain unchanged. . Objective Vital Signs Date Time Temp Pulse Resp B/P (MAP) Pulse Ox O2 Delivery O2 Flow Rate FiO2 01/06/17 11:20 70 101/50 01/06/17 10:40 97 35 01/06/17 09:20 99 35 01/06/17 09:20 35 01/06/17 08:00 98.7 68 16 100/52 (68) 99 01/06/17 08:00 68 01/06/17 08:00 35 01/06/17 07:41 98 35 01/06/17 07:00 68 100/53 01/06/17 07:00 68 100/53 01/06/17 06:00 68 01/06/17 04:00 74 01/06/17 04:00 35 01/06/17 04:00 75 103/51 01/06/17 04:00 97.9 74 16 108/51 (70) 98 01/06/17 03:58 74 112/54 01/06/17 03:36 98 35 01/06/17 03:27 70 105/52 01/06/17 02:00 68 01/06/17 00:51 98 35 01/06/17 00:00 72 01/06/17 00:00 99.6 72 16 116/56 (76) 98 01/06/17 00:00 35 01/05/17 22:40 73 122/56 01/05/17 22:24 73 128/60 01/05/17 22:24 73 128/60 01/05/17 22:00 73 01/05/17 21:39 97 35 01/05/17 20:00 65 01/05/17 20:00 35 01/05/17 20:00 97.5 65 16 105/57 (73) 99 01/05/17 18:00 62 01/05/17 16:00 72 01/05/17 16:00 35 01/05/17 16:00 98.5 72 16 124/58 (80) 96 01/05/17 15:49 99 35 01/05/17 14:00 62 01/05/17 12:00 99.0 70 16 103/51 (68) 96 01/05/17 12:00 70 01/05/17 12:00 35 Intake & Output 01/06/17 01/06/17 06:59 18:59 Intake Total 2055 ml 544 ml Output Total 1322 ml Balance 733 ml 544 ml IV Total 2055 ml 544 ml Output Urine Total 700 ml Chest Tube Drainage Total 620 ml Drainage Total 2 ml # Bowel Movements 0 Physical Exam CONSTITUTIONAL/GENERAL: This is an adequately nourished patient in no acute distress. Endotracheally intubated on mechanical ventilation. TUBES/LINES/DRAINS: PICC line to PIYUSH, ETT, SCDs, Saxena catheter. PIV's, left- sided chest tube. SKIN: No jaundice, rashes, or lesions. Scattered ecchymosis to upper extremities. Skin temperature appropriate. Not diaphoretic. HEAD: Atraumatic. Normocephalic. EYES: Pupils equal and round and reactive. Nonicteric. ENT: Unable to evaluate hearing secondary to clinical condition. Nose without bleeding or purulent drainage. Moist oral mucosa. NECK: Trachea midline. Supple. CARDIOVASCULAR: Regular rate and rhythm, systolic murmur. Edema to bilateral upper and lower extremities. RESPIRATORY/CHEST: Symmetric, endotracheally intubated on mechanical ventilation. Diminished breath sounds bilaterally. GASTROINTESTINAL: Abdomen soft, round. bowel sounds present. GENITOURINARY: Without palpable bladder distension. Saxena catheter intact to bedside drainage. MUSCULOSKELETAL: No purposeful movement noted. NEUROLOGICAL: Sedated. Unresponsive to verbal or tactile stimuli. PSYCHIATRIC: Unable to evaluate secondary to clinical condition. Sedated. . Diagnostic Tests Laboratory Laboratory Tests Test 01/03/17 20:45 01/04/17 03:44 01/04/17 06:44 01/04/17 21:23 White Blood Count 10.5 TH/MM3 (4.0-11.0) 7.8 TH/MM3 (4.0-11.0) Red Blood Count 3.21 MIL/MM3 (4.50-5.90) 3.00 MIL/MM3 (4.50-5.90) Hemoglobin 9.0 GM/DL (13.0-17.0) 8.7 GM/DL (13.0-17.0) Hematocrit 28.1 % (39.0-51.0) 26.3 % (39.0-51.0) Mean Corpuscular Volume 87.7 FL (80.0-100.0) 87.7 FL (80.0-100.0) Mean Corpuscular Hemoglobin 28.0 PG (27.0-34.0) 29.0 PG (27.0-34.0) Mean Corpuscular Hemoglobin Concent 31.9 % (32.0-36.0) 33.1 % (32.0-36.0) Red Cell Distribution Width 19.4 % (11.6-17.2) 19.7 % (11.6-17.2) Platelet Count 299 TH/MM3 (150-450) 253 TH/MM3 (150-450) Mean Platelet Volume 7.8 FL (7.0-11.0) 8.0 FL (7.0-11.0) Neutrophils (%) (Auto) 81.0 % (16.0-70.0) Lymphocytes (%) (Auto) 11.4 % (9.0-44.0) Monocytes (%) (Auto) 6.4 % (0.0-8.0) Eosinophils (%) (Auto) 0.6 % (0.0-4.0) Basophils (%) (Auto) 0.6 % (0.0-2.0) Neutrophils # (Auto) 6.3 TH/MM3 (1.8-7.7) Lymphocytes # (Auto) 0.9 TH/MM3 (1.0-4.8) Monocytes # (Auto) 0.5 TH/MM3 (0-0.9) Eosinophils # (Auto) 0.0 TH/MM3 (0-0.4) Basophils # (Auto) 0.0 TH/MM3 (0-0.2) CBC Comment DIFF FINAL Differential Comment Blood Urea Nitrogen 14 MG/DL (7-18) Creatinine 0.61 MG/DL (0.60-1.30) Random Glucose 254 MG/DL (74-106) Total Protein 5.5 GM/DL (6.4-8.2) Albumin 1.2 GM/DL (3.4-5.0) Calcium Level 7.7 MG/DL (8.5-10.1) Phosphorus Level 2.5 MG/DL (2.5-4.9) Magnesium Level 1.8 MG/DL (1.5-2.5) Alkaline Phosphatase 86 U/L (45-117) Aspartate Amino Transf (AST/SGOT) 25 U/L (15-37) Alanine Aminotransferase (ALT/SGPT) 16 U/L (12-78) Total Bilirubin 0.5 MG/DL (0.2-1.0) Sodium Level 134 MEQ/L (136-145) Potassium Level 3.4 MEQ/L (3.5-5.1) 3.6 MEQ/L (3.5-5.1) Chloride Level 94 MEQ/L (98-107) Carbon Dioxide Level 31.8 MEQ/L (21.0-32.0) Anion Gap 8 MEQ/L (5-15) Estimat Glomerular Filtration Rate 135 ML/MIN (>89) Total Creatine Kinase 43 U/L (39-308) Lipase 60 U/L (73-393) Test 01/05/17 03:26 01/06/17 04:04 White Blood Count 7.4 TH/MM3 (4.0-11.0) 8.1 TH/MM3 (4.0-11.0) Red Blood Count 3.02 MIL/MM3 (4.50-5.90) 2.88 MIL/MM3 (4.50-5.90) Hemoglobin 8.7 GM/DL (13.0-17.0) 8.2 GM/DL (13.0-17.0) Hematocrit 26.7 % (39.0-51.0) 25.5 % (39.0-51.0) Mean Corpuscular Volume 88.6 FL (80.0-100.0) 88.3 FL (80.0-100.0) Mean Corpuscular Hemoglobin 28.9 PG (27.0-34.0) 28.4 PG (27.0-34.0) Mean Corpuscular Hemoglobin Concent 32.7 % (32.0-36.0) 32.2 % (32.0-36.0) Red Cell Distribution Width 19.7 % (11.6-17.2) 19.1 % (11.6-17.2) Platelet Count 245 TH/MM3 (150-450) 211 TH/MM3 (150-450) Mean Platelet Volume 8.3 FL (7.0-11.0) 8.0 FL (7.0-11.0) Neutrophils (%) (Auto) 78.1 % (16.0-70.0) 81.3 % (16.0-70.0) Lymphocytes (%) (Auto) 12.5 % (9.0-44.0) 10.3 % (9.0-44.0) Monocytes (%) (Auto) 8.1 % (0.0-8.0) 6.3 % (0.0-8.0) Eosinophils (%) (Auto) 0.8 % (0.0-4.0) 0.7 % (0.0-4.0) Basophils (%) (Auto) 0.5 % (0.0-2.0) 1.4 % (0.0-2.0) Neutrophils # (Auto) 5.8 TH/MM3 (1.8-7.7) 6.6 TH/MM3 (1.8-7.7) Lymphocytes # (Auto) 0.9 TH/MM3 (1.0-4.8) 0.8 TH/MM3 (1.0-4.8) Monocytes # (Auto) 0.6 TH/MM3 (0-0.9) 0.5 TH/MM3 (0-0.9) Eosinophils # (Auto) 0.1 TH/MM3 (0-0.4) 0.1 TH/MM3 (0-0.4) Basophils # (Auto) 0.0 TH/MM3 (0-0.2) 0.1 TH/MM3 (0-0.2) CBC Comment DIFF FINAL DIFF FINAL Differential Comment Blood Urea Nitrogen 13 MG/DL (7-18) 13 MG/DL (7-18) Creatinine 0.55 MG/DL (0.60-1.30) 0.54 MG/DL (0.60-1.30) Random Glucose 282 MG/DL (74-106) 273 MG/DL (74-106) Total Protein 5.6 GM/DL (6.4-8.2) 5.3 GM/DL (6.4-8.2) Albumin 1.2 GM/DL (3.4-5.0) 1.1 GM/DL (3.4-5.0) Calcium Level 7.5 MG/DL (8.5-10.1) 7.4 MG/DL (8.5-10.1) Phosphorus Level 2.5 MG/DL (2.5-4.9) Magnesium Level 1.9 MG/DL (1.5-2.5) 1.7 MG/DL (1.5-2.5) Alkaline Phosphatase 86 U/L (45-117) 84 U/L (45-117) Aspartate Amino Transf (AST/SGOT) 20 U/L (15-37) 19 U/L (15-37) Alanine Aminotransferase (ALT/SGPT) 16 U/L (12-78) 15 U/L (12-78) Total Bilirubin 0.3 MG/DL (0.2-1.0) 0.3 MG/DL (0.2-1.0) Sodium Level 136 MEQ/L (136-145) 135 MEQ/L (136-145) Potassium Level 3.6 MEQ/L (3.5-5.1) 3.8 MEQ/L (3.5-5.1) Chloride Level 98 MEQ/L (98-107) 97 MEQ/L (98-107) Carbon Dioxide Level 31.6 MEQ/L (21.0-32.0) 33.1 MEQ/L (21.0-32.0) Anion Gap 6 MEQ/L (5-15) 5 MEQ/L (5-15) Estimat Glomerular Filtration Rate 152 ML/MIN (>89) 156 ML/MIN (>89) Total Creatine Kinase 41 U/L (39-308) Protein Corrected Calcium 8.4 MG/DL (8.5-10.1) Result Diagram: 01/06/1740301/06/174 Procedures 11/30/16 - he underwent left and right heart catheterization with the following findings: RCA-dominant, 10% lesion mid. PDA-patent with TALI III flow. LM-no significant obstructive lesions. LAD-transapical, no significant obstructive lesions. Diagonal-70% lesion ostial, small vessel. Left circumflex-proximal clot thrombus, TALI II flow with 2 OM branches, both patent. Procedure-PCI/BMS to proximal left circumflex in setting of NSTEMI. No left ventriculogram done due to concern for renal function. EF by echocardiogram 12/01/16 was 50-55%, mild concentric left ventricular hypertrophy, normal right ventricular size and function, no significant valvular disease, pulmonary hypertension or effusion noted. This was reexamined 87 due to concern for possible pericardial infusion. Findings included dynamic "pseudo-" outflow tract obstructive physiology due to concentric hypertrophy and hyperdynamic systolic function with mild mitral regurgitation, mild aortic valve regurgitation and small to moderate pericardial effusion, not hemodynamically significant. 12/02/16-left axillary arterial line placement. 12/02/16-intubation. 12/02/16 left subclavian central line placement. 12/02/1679-[id number]-Port removal secondary to sepsis. 12/25/16-EUS followed by an EGD with esophageal stent placement 12/25/16-reintubation 12/25/16-arterial line placement 12/26/16 -extubation 01/01/17 -pericardiocentesis 01/01/17 -left-sided chest tube 01/01/17 -reintubation . . Assessment and Plan Disease Oriented Problem List: (1) Respiratory failure (2) Edema (3) Esophageal carcinoma (4) SCC (squamous cell carcinoma) (5) NSTEMI (non-ST elevated myocardial infarction) (6) Atrial fibrillation with RVR Symptom Scale: (1) Shortness of breath 0-10 Scale: Unable to quantify Comment: Persistent respiratory failure, currently intubated on mechanical ventilation. (2) Pain 0-10 Scale: Unable to quantify Comment: Ongoing fentanyl drip. (3) Debility 0-10 Scale: Unable to quantify Comment: Progressive, secondary to acute illness and prolonged hospitalization. (4) Edema 0-10 Scale: Unable to quantify Pertinent Non-Medical Issues Psychosocial:This is a 61-year-old male that was born in [place], [place] and moved to [place] when he was 15. He never attended high school after he moved to [place] nor obtained his GED. 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 He was never in the . Spiritual: No spiritual affiliation. Legal: Has designated his daughter Ben La and his girlfriend Luly Bautista as joint healthcare surrogates. Ethical issues impacting care: None noted. . Important Contacts Daughter-Ben La Significant other-Luly Bautista , Mother-Orly Sky ([place]), [place], [place] . Prognosis Mr. 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 Clinical course complicated by NSTEMI, patient underwent PCI with bare metal stents on 11/30/16. Clinical course further complicated by persistent fever, MSSA bacteremia, worsening sepsis, A. fib with RVR and persistent respiratory failure. Patient underwent EGD with esophageal stent placement on 12/25/16, complicated by significant bleeding from distal esophagus, in addition to persistent respiratory failure. Patient at a very high risk for further complications, continue decline and . . Code Status: Full Code Plan * CODE STATUS: Full code. Risk, benefits and limitations of CPR, intubation and mechanical ventilation were previously discussed with patient. Patient elected full code. * HEALTHCARE DECISION-MAKING: Patient unable to participate at this time in medical decision-making secondary to clinical condition, sedated, intubated on mechanical ventilation. He has designated his daughter Mena La AND girlfriend Luly Plunkett as co-healthcare surrogate decision makers. * GOALS OF CARE: 01/06/17 -Patient had previously elected to continue aggressive management to include full code/intubation and mechanical ventilation. However, patient previously verbalized NOT wishing tracheostomy if he were unable to be medically extubate. Ongoing conversations with patient's daughter Mena and girlfriend Luly Plunkett for frequent medical updates. Both receptive of ongoing goals of care conversation. Patient's daughter Mena to visit patient at 10 AM. Palliative care to follow-up. * SYMPTOMS: = Shortness of breath, secondary to persistent respiratory failure. Increased oxygen requirements, reintubated and on mechanical ventilation. Left-sided chest tube in place, plan for a right-sided chest tube placement today. = Pain, multifactorial. Likely secondary to multiple procedures, prolonged hospitalization, bedrest. Ongoing fentanyl drip. = Debility, secondary to acute illness and prolonged hospitalization. Likely to continue to worsen. * Case discussed with bedside RN. * Ongoing emotional support and active listening provided to patient's girlfriend Luly Plunkett. * Palliative care contact information has been provided to patient. * Palliative care will continue to follow-up for further clarifications of goals of care as patient's clinical course continues to evolve. . Time Spent Total Floor Time (mins): 31 (Total time to include review medical records, physical exam, telephone conversation with patient's girlfriend Luly Bautista and case discussion with bedside RN.) >50% Counseling/Coord of Care: Yes Attestation To help prompt me to consider important information that might be impacting today's encounter and assessment, information from prior notes written by myself or my colleagues may have been "brought forward" into today's note. My signature on this note, however, is an attestation that I personally performed the exam, history, and/or decision-making noted today, and, unless otherwise indicated, the interactions with patient, family, and staff as well as the review of records all occurred today. I also attest that the listed assessment and stated plan reflect my best clinical judgment today based on the combination of historical information, prior notes, and today's exam/ interactions. When time spent is documented, it refers only to time spent today by the signer, or if indicated, combined time spent today by collaborating physician/nurse practitioner. Ida Alston Jan 06, 2017 12:02
--- NOTE | 2017-01-06 12:46 | PD.PROCEDR ---
Procedure Note Procedure Procedure: Ultrasound-guided right pigtail chest tube placement Indication: Large right pleural effusion Informed consent was obtained. A time-out was completed verifying correct patient, procedure, site, positioning. The patient's right lower chest was prepped and draped in a sterile manner after the appropriate infiltration level was confirmed by ultrasound. 1% lidocaine was used anesthetize the surrounding skin. A 10-blade scalpel used to make the incision. 18G needle was then introduced without difficulty and into the pleural space and straw-colored fluid was aspirated. Guidewire was placed through the needle and the needle was removed. A 7 Icelandic dilator was used, followed by placement of 10 Icelandic pigtail catheter over the guidewire using Seldinger technique. Guidewire was removed and pigtail was connected to the Vacutainer, initial output 1200 ML of straw-colored fluid pleural fluid. A post-procedure chest x-ray was ordered and the fluid will be sent for several studies. Estimated Blood Loss: <2 ml. The patient tolerated the procedure well and there were no immediate complications. Bean Delarosa MD Jan 06, 2017 12:46
--- NOTE | 2017-01-06 12:51 | HHI.IDPN ---
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 It was reportedly malignant as well. He presented to the hospital complaining of generalized weakness, abdominal pain and progressive swallowing difficulty over the last 3 weeks. Evaluation in the emergency room revealed abnormal EKG, and he underwent cardiac catheterization. He had non-ST CO, and had revascularization with stent placement of his left circumflex artery. Patient is spiked to 103, and there were 2 blood cultures done yesterday that are now reported as growing staph aureus. Had an infected port that has benson removed. Had a very prolonged bacteremia Notes reviewed D/W RN Temps ok Remains on pressors Had placemenmt of R CT Sputum with Pseudomonas, R to Primaxin, I to Azactam BC negative so far Has drain in pericardium - fluid exudative, cytology pending Has L CT with serous fluid Antibiotics Cefepime Rifampin Lines Port - removed 12/02 PICC Past Medical History Hypertension Hyperlipidemia CAD Diabetes 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 and he had good margins Recurrent squamous cell carcinoma on the left face, with involvement of the parotid gland, status post surgery at [facility] Recently found to have esophageal mass Past Surgical History Appendectomy Liver Biopsy Resection of a squamous cell carcinoma on the left cheek in 2011 Extensive surgery on the left face and neck for recurrent squamous cell carcinoma Port Placement November 12, 2016 Allergies: Coded Allergies: penicillin G (Unverified Allergy, Mild, Hives, 12/30/16) Objective . Vital Signs Date Time Temp Pulse Resp B/P (MAP) Pulse Ox O2 Delivery O2 Flow Rate FiO2 01/06/17 11:20 70 101/50 01/06/17 10:40 97 35 01/06/17 09:20 99 35 01/06/17 09:20 35 01/06/17 08:00 98.7 68 16 100/52 (68) 99 01/06/17 08:00 68 01/06/17 08:00 35 01/06/17 07:41 98 35 01/06/17 07:00 68 100/53 01/06/17 07:00 68 100/53 01/06/17 06:00 68 01/06/17 04:00 74 01/06/17 04:00 35 01/06/17 04:00 75 103/51 01/06/17 04:00 97.9 74 16 108/51 (70) 98 01/06/17 03:58 74 112/54 01/06/17 03:36 98 35 01/06/17 03:27 70 105/52 01/06/17 02:00 68 01/06/17 00:51 98 35 01/06/17 00:00 72 01/06/17 00:00 99.6 72 16 116/56 (76) 98 01/06/17 00:00 35 01/05/17 22:40 73 122/56 01/05/17 22:24 73 128/60 01/05/17 22:24 73 128/60 01/05/17 22:00 73 01/05/17 21:39 97 35 01/05/17 20:00 65 01/05/17 20:00 35 01/05/17 20:00 97.5 65 16 105/57 (73) 99 01/05/17 18:00 62 01/05/17 16:00 72 01/05/17 16:00 35 01/05/17 16:00 98.5 72 16 124/58 (80) 96 01/05/17 15:49 99 35 01/05/17 14:00 62 01/06/17 01/06/17 01/07/17 14:59 22:59 06:59 Intake Total 544 ml Balance 544 ml IV Total 544 ml . Laboratory Tests Test 01/05/17 03:26 01/06/17 04:04 White Blood Count 7.4 TH/MM3 8.1 TH/MM3 Red Blood Count 3.02 MIL/MM3 2.88 MIL/MM3 Hemoglobin 8.7 GM/DL 8.2 GM/DL Hematocrit 26.7 % 25.5 % Mean Corpuscular Volume 88.6 FL 88.3 FL Mean Corpuscular Hemoglobin 28.9 PG 28.4 PG Mean Corpuscular Hemoglobin Concent 32.7 % 32.2 % Red Cell Distribution Width 19.7 % 19.1 % Platelet Count 245 TH/MM3 211 TH/MM3 Mean Platelet Volume 8.3 FL 8.0 FL Neutrophils (%) (Auto) 78.1 % 81.3 % Lymphocytes (%) (Auto) 12.5 % 10.3 % Monocytes (%) (Auto) 8.1 % 6.3 % Eosinophils (%) (Auto) 0.8 % 0.7 % Basophils (%) (Auto) 0.5 % 1.4 % Neutrophils # (Auto) 5.8 TH/MM3 6.6 TH/MM3 Lymphocytes # (Auto) 0.9 TH/MM3 0.8 TH/MM3 Monocytes # (Auto) 0.6 TH/MM3 0.5 TH/MM3 Eosinophils # (Auto) 0.1 TH/MM3 0.1 TH/MM3 Basophils # (Auto) 0.0 TH/MM3 0.1 TH/MM3 CBC Comment DIFF FINAL DIFF FINAL Differential Comment Laboratory Tests Test 01/04/17 21:23 01/05/17 03:26 01/06/17 04:04 Potassium Level 3.6 MEQ/L 3.6 MEQ/L 3.8 MEQ/L Blood Urea Nitrogen 13 MG/DL 13 MG/DL Creatinine 0.55 MG/DL 0.54 MG/DL Random Glucose 282 MG/DL 273 MG/DL Total Protein 5.6 GM/DL 5.3 GM/DL Albumin 1.2 GM/DL 1.1 GM/DL Calcium Level 7.5 MG/DL 7.4 MG/DL Phosphorus Level 2.5 MG/DL Magnesium Level 1.9 MG/DL 1.7 MG/DL Alkaline Phosphatase 86 U/L 84 U/L Aspartate Amino Transf (AST/SGOT) 20 U/L 19 U/L Alanine Aminotransferase (ALT/SGPT) 16 U/L 15 U/L Total Bilirubin 0.3 MG/DL 0.3 MG/DL Sodium Level 136 MEQ/L 135 MEQ/L Chloride Level 98 MEQ/L 97 MEQ/L Carbon Dioxide Level 31.6 MEQ/L 33.1 MEQ/L Anion Gap 6 MEQ/L 5 MEQ/L Estimat Glomerular Filtration Rate 152 ML/MIN 156 ML/MIN Total Creatine Kinase 41 U/L Protein Corrected Calcium 8.4 MG/DL Imaging Chest X-Ray 01/05/17 0600 Signed Impressions: Service Date/Time: Thursday, January 05, 2017 04:09 - CONCLUSION: 1. Support apparatus as above. Bilateral mostly basilar airspace disease similar in appearance to January 04. Kervin Krause MD Abdomen X-Ray 8/21/17 0600 Signed Impressions: Service Date/Time: Thursday, January 05, 2017 04:11 - CONCLUSION: 1. Residual contrast in large bowel. No evidence for obstruction. Kervin Krause MD Chest X-Ray 01/01/17 Signed Impressions: Service Date/Time: December 12:33 - CONCLUSION: 1. Improving diffuse parenchymal infiltrate. 2. Esophageal stent and PICC in good position. 3. There is a pericardial drain present. Benjamin Pollock MD Chest X-Ray 12/31/16599 Signed Impressions: Service Date/Time: Saturday, December 31, 2016 03:30 - CONCLUSION: Increasing consolidative infiltrates in the right lower lung, persistence patchy infiltrates in the right upper lung and persistent dense consolidation of the left lower lung. Kulwant Gupta MD CT Angiography 12/31/16 Signed Impressions: Service Date/Time: Saturday, December 31, 2016 01:00 - CONCLUSION: 1. Study is negative for pulmonary embolism. 2. Pericardial effusion, diffuse patchy consolidation in both lungs, collapse left lower lobe, bilateral pleural effusions, esophageal stent, similar to yesterday's CT thorax. Kulwant Gupta MD Last 48 hours Impressions Chest X-Ray 12/26/16599 Signed Impressions: Service Date/Time: Monday, December 26, 2016 03:45 - CONCLUSION: Improving pulmonary edema and effusions, now mild/small. Unchanged moderate cardiomegaly. Washington Beasley MD GI Procedure 12/25/16 Signed Impressions: Service Date/Time: December 19:33 - CONCLUSION: Spot film as above. Everett Pollock MD FACR Chest X-Ray 12/25/16 Signed Impressions: Service Date/Time: December 20:28 - CONCLUSION: ET in good position; increasing congestive failure. Everett Pollock MD FACR Chest X-Ray 12/05/16599 Signed Impressions: Service Date/Time: Monday, December 05, 2016 03:30 - CONCLUSION: 1. Cardiomegaly and findings of vascular congestion without overt failure. There has been no significant change when compared to the prior exam. Bobby Matias MD Head CT 7/17/17 0000 Signed Impressions: Service Date/Time: Thursday, December 01, 2016 07:59 - CONCLUSION: 1. Questionable area of low attenuation left temporal lobe could be artifact versus less likely infarct. MRI may be warranted based on clinical history. 2. No midline shift or mass effect. 3. No intraparenchymal hemorrhage. Jagjit Tapia MD Brain MRI 12/01/16 0000 Signed Impressions: Service Date/Time: Thursday, December 01, 2016 12:07 - CONCLUSION: Normal examination. Barrett Rodriguez MD Abdomen X-Ray 12/01/16 0000 Signed Impressions: Service Date/Time: Thursday, December 01, 2016 16:48 - CONCLUSION: No evidence of obstruction. Feeding tube tip in the distal stomach. Barrett Rodriguez MD Abdomen/Pelvis CT 11/29/16 2356 Signed Impressions: Service Date/Time: Wednesday, November 30, 2016 01:35 - CONCLUSION: 1. Markedly abnormal appearance of the distal esophagus consistent with the history of esophageal carcinoma. 2. Atherosclerotic calcifications of the aorta and iliac vessels. 3. Cirrhotic appearance to the liver with a mildly nodular contour present. Erik Simon MD CT Angiography 11/29/16 2348 Signed Impressions: Service Date/Time: Wednesday, November 30, 2016 01:35 - CONCLUSION: 1. No evidence for pulmonary embolism or pneumonia. 2. Abnormal appearance of the esophagus with and soft tissue consistent with the history of carcinoma. Erik Simon MD Chest X-Ray 12/03/16 0600 Signed Impressions: Service Date/Time: Saturday, December 03, 2016 04:43 - CONCLUSION: Increasing consolidation in the left lower lung. Bilateral interstitial changes. Niko Wilcox MD Chest X-Ray 12/03/16 0000 Signed Impressions: Service Date/Time: Saturday, December 03, 2016 07:48 - CONCLUSION: 1. Persistent left retrocardiac density and slight interstitial prominence. Jagjit Tapia MD Chest X-Ray 12/02/16 0000 Signed Impressions: Service Date/Time: Friday, December 02, 2016 15:55 - CONCLUSION: Normal examination with endotracheal tube and central lines in good position. Barrett Rodriguez MD Chest X-Ray 12/02/16 0000 Signed Impressions: Service Date/Time: Friday, December 02, 2016 08:24 - CONCLUSION: Mild perihilar vascular congestion. Endotracheal tube is in good position Barrett Rodriguez MD Chest X-Ray 12/02/16 0000 Signed Impressions: Service Date/Time: Friday, December 02, 2016 06:53 - CONCLUSION: Underinflated examination with atelectasis at the lung bases. Given the technique, no acute abnormality or significant interval change is appreciated. Washington Marroquin MD Physical Exam GENERAL: Sedated on the vent. SKIN: Warm and dry. No generalized rash EYES: . No scleral icterus. No injection or drainage. EARS, NOSE AND THROAT: Nose without bleeding or purulent nasal discharge. Orally intubated. NECK: Trachea midline. Supple and not tender, no meningeal signs CARDIOVASCULAR: Irregular rate and rhythm, HR 129. There is a coarse systolic murmur at base of the heart. No rub. RESPIRATORY: Some rhonchi on R. Intact dressing R chest ABDOMEN: Soft, not distended, not tender. Bowel sounds present and normoactive. No organomegaly. EXTREMITIES: No clubbing, cyanosis. Has pitting BLE edema. No calf tenderness. Well perfused and warm. NEUROLOGICAL: sedated PSYCHIATRIC: unable to assess LINE: Dry dressing on previous port site, healing. PICC site ok : Saxena in place BACK: Has decubitus in sacrum Assessment & Plan Remarks IMPRESSION Respiratory failure - has ?PNA, C/S with Pseudomonas - CHF - S/P RX GNR PNA Recurrent shock MSSA sepsis due to port infection, removed - S/P removal port 12/02 - last (+) BC 12/05 Recurrent squamous cell CA Esophageal CA, S/P EUS and stent placement Lethargy and SOB due to sepsis, resolved - has acidosis, resolved Renal insufficiency, due to sepsis and shock, better Atrial fib, rate still goes up and down New murmur - last echo with new "pseudo" outflow tract obstruction, ?this is source ?Seizure RECOMMENDATION Continue Rifampin, for synergy vs MSSA - follow LFT Continue Cefepime, will cover PSAE and MSSA - await C/S and see if need to be adjusted He will need 6 weeks IV Abx - anticipated end date Jan 15 (6 weeks from last +BC) for the MSSA sepsis Labs weekly while on Abx: CBC, creatinine and LFT - will have HEPAS order and monitor - call if abnormal and with questions Follow new C/S D/W Carola Dick MD Jan 06, 2017 12:51
--- NOTE | 2017-01-06 13:33 | PD.WCN.NOT ---
Wound Consult Additional Information: Attempted to see patient at 12 noon. Patient was in the middle of a procedure. Will see patient tomorrow Sarah [facility] Jan 06, 2017 13:33
[2017-01-06 13:37] LABS: TOTAL PROTEIN,PLEURAL FLUID 1.4 GM/DL
--- NOTE | 2017-01-06 13:42 | RADRPT ---
EXAM DATE/TIME: 01/06/2017 12:38 [place] COMPARISON: CHEST SINGLE AP, January 06, 2017, 5:09. INDICATIONS : Post right side chest tube. MEDICAL HISTORY : Hiatal hernia. Hypertension. Chronic obstructive pulmonary disease. SURGICAL HISTORY : None. ENCOUNTER: Subsequent ACUITY: 1 day PAIN SCORE: Non-responsive. LOCATION: Bilateral chest FINDINGS: A single portable frontal view of the chest shows interval placement of a small caliber chest tube wi thin the right lung base. No discrete effusion seen on the right. Consolidation is again noted within the left lung base. There is a small caliber catheter overlying the left lower chest. I'm unsure if this is within the hemithorax or simply within the soft tissues. If this is within the hemithorax it is barely within the hemithorax. The endotracheal tube is 3 cm proximal to the elizabeth. Left sided PIC C line in good position. Mild cardiomegaly. CONCLUSION: 1. Right thoracostomy tube within the inferior hemithorax. No effusion. 2. Small caliber catheter overlying the inferior left chest. I am unsure if this is within the hemith orax. If it is within the hemithorax it is barely within it. 3. Left lower lobe infiltrate. 4. Cardiomegaly. Kulwant Cowart Jr., MD on January 06, 2017 at 13:38 Board Certified Radiologist. This report was verified electronically.
[2017-01-06 13:48] LABS: PLEURAL FLUID LYMPHS 40 %
[2017-01-06] MEDS ORDERED: DILTIAZEM 125 MG/NS 100 ML IV PRN ×2 (15:15)
[2017-01-06] MEDS ORDERED: PHENYLEPHRINE INJ 160 MG in SODIUM CHLORID 0.9% 500 ML INJ 500 ML IV PRN (15:15)
[2017-01-06] MEDS ORDERED: fentaNYL DRIP 250 ML IV PRN (15:15)
[2017-01-06 15:49] LABS: BLOOD GAS BASE EXCESS 4.2 mmol/L (-2-2); BLOOD GAS CARBOXYHEMOGLOBIN 1.9 % (0-4); BLOOD GAS HCO3 29 mmol/L (22-26); BLOOD GAS METHEMOGLOBIN 0.7 % (0-2); BLOOD GAS O2 HGB SATURATION 92 % (90-100); BLOOD GAS OXYGEN CONTENT 11.9 Vol % (12.0-20.0); BLOOD GAS PCO2 50 mmHg (38-42); BLOOD GAS PO2 75 mmHg (61-120); BLOOD GAS TOTAL HGB 9.1 G/DL (12.0-16.0); CRITICAL VALUE YES; DRAW SITE RT RADIAL; FIO2 35 %; NUMBER OF ARTERIAL PUNCTURES 1; STAT NO; TEMP CORR TO 98.6; ULNAR PULSE Y; VENT SETTINGS CPAP 5/5
[2017-01-06] MEDS ORDERED: RESP: ALBUTEROL 2.5 MG/IPRATROPIUM 0.5 MG NEB (SCH) NEB (16:00)
--- NOTE | 2017-01-06 16:00 | PD.ONC.PN ---
Subjective Subjective Remarks Afebrile overnight Remains intubated; currently on CPAP trial Had chest tube placed today for large right pleural effusion Objective Data Date Time Temp Pulse Resp B/P (MAP) Pulse Ox O2 Delivery O2 Flow Rate FiO2 01/06/17 14:40 35 01/06/17 14:00 66 01/06/17 13:27 98 35 01/06/17 12:15 66 79/41 01/06/17 12:00 98.4 66 16 108/55 (72) 100 01/06/17 12:00 66 01/06/17 12:00 35 01/06/17 11:20 70 101/50 01/06/17 10:40 97 35 01/06/17 10:00 76 01/06/17 09:20 99 35 01/06/17 09:20 35 01/06/17 08:00 98.7 68 16 100/52 (68) 99 01/06/17 08:00 68 01/06/17 08:00 35 01/06/17 07:41 98 35 01/06/17 07:00 68 100/53 01/06/17 07:00 68 100/53 01/06/17 06:00 68 01/06/17 04:00 74 01/06/17 04:00 35 01/06/17 04:00 75 103/51 01/06/17 04:00 97.9 74 16 108/51 (70) 98 01/06/17 03:58 74 112/54 01/06/17 03:36 98 35 01/06/17 03:27 70 105/52 01/06/17 02:00 68 01/06/17 00:51 98 35 01/06/17 00:00 72 01/06/17 00:00 99.6 72 16 116/56 (76) 98 01/06/17 00:00 35 01/05/17 22:40 73 122/56 01/05/17 22:24 73 128/60 01/05/17 22:24 73 128/60 01/05/17 22:00 73 01/05/17 21:39 97 35 01/05/17 20:00 65 01/05/17 20:00 35 01/05/17 20:00 97.5 65 16 105/57 (73) 99 01/05/17 18:00 62 01/05/17 16:00 72 01/05/17 16:00 35 01/05/17 16:00 98.5 72 16 124/58 (80) 96 01/05/17 15:49 99 35 01/06/17 01/06/17 01/06/17 07:00 15:00 23:00 Intake Total 1352 ml 724 ml Output Total 1322 ml Balance 30 ml 724 ml Result Diagram: 01/06/17 0404 01/06/17 0404 Laboratory Results Laboratory Tests Test 01/06/17 04:04 01/06/17 12:30 White Blood Count 8.1 TH/MM3 Red Blood Count 2.88 MIL/MM3 Hemoglobin 8.2 GM/DL Hematocrit 25.5 % Mean Corpuscular Volume 88.3 FL Mean Corpuscular Hemoglobin 28.4 PG Mean Corpuscular Hemoglobin Concent 32.2 % Red Cell Distribution Width 19.1 % Platelet Count 211 TH/MM3 Mean Platelet Volume 8.0 FL Neutrophils (%) (Auto) 81.3 % Lymphocytes (%) (Auto) 10.3 % Monocytes (%) (Auto) 6.3 % Eosinophils (%) (Auto) 0.7 % Basophils (%) (Auto) 1.4 % Neutrophils # (Auto) 6.6 TH/MM3 Lymphocytes # (Auto) 0.8 TH/MM3 Monocytes # (Auto) 0.5 TH/MM3 Eosinophils # (Auto) 0.1 TH/MM3 Basophils # (Auto) 0.1 TH/MM3 CBC Comment DIFF FINAL Differential Comment Blood Urea Nitrogen 13 MG/DL Creatinine 0.54 MG/DL Random Glucose 273 MG/DL Total Protein 5.3 GM/DL Albumin 1.1 GM/DL Calcium Level 7.4 MG/DL Magnesium Level 1.7 MG/DL Alkaline Phosphatase 84 U/L Aspartate Amino Transf (AST/SGOT) 19 U/L Alanine Aminotransferase (ALT/SGPT) 15 U/L Total Bilirubin 0.3 MG/DL Sodium Level 135 MEQ/L Potassium Level 3.8 MEQ/L Chloride Level 97 MEQ/L Carbon Dioxide Level 33.1 MEQ/L Anion Gap 5 MEQ/L Estimat Glomerular Filtration Rate 156 ML/MIN Protein Corrected Calcium 8.4 MG/DL Pleural Fluid pH 8.5 Pleural Fluid WBC 110 /MM3 Pleural Fluid RBC 1056 /MM3 Pleural Fluid Neutrophils 53 % Pleural Fluid Lymphocytes 40 % Pleural Fluid Monocytes 2 % Pleural Fluid Histiocytes 2 % Pleural Fluid Mesothelial Cells 3 % Pleural Fluid Total Protein 1.4 GM/DL Pleural Fluid LDH 88 U/L Pleural Fluid Glucose 277 MG/DL Culture Results Microbiology Date/Time Source Procedure Growth Status 01/06/17 12:30 Fluid Pleural Fluid Fungal Smear Pending Received 01/06/17 12:30 Fluid Pleural Fluid Fungal Culture Pending Received 01/06/17 12:30 Fluid Pleural Fluid Acid Fast Stain Pending Received 01/06/17 12:30 Fluid Pleural Fluid Mycobacterial Culture Pending Received 01/06/17 12:30 Fluid Pleural Fluid Gram Stain Pending Received 01/06/17 12:30 Fluid Pleural Fluid Body Fluid Culture Pending Received Administered Medications Medications (Trade) Dose Ordered Sig/Geovanny Route PRN Reason Start Time Stop Time Status Last Admin Dose Admin Sodium Chloride (NS Flush) 2 ml UNSCH PRN IV FLUSH FLUSH AFTER USING IV ACCESS 11/30/16 02:45 12/24/16 09:59 Sodium Chloride (NS Flush) 2 ml BID IV FLUSH 11/30/16 09:00 01/06/17 09:02 Oxycodone HCl (Roxicodone) 5 mg Q4H PRN PO PAIN SCALE 3 TO 5 11/30/16 02:45 12/31/16 18:24 Senna/Docusate Sodium (Rere-Colace) 1 tab BID PO 11/30/16 09:00 01/01/17 09:52 Acetaminophen (Tylenol) 325 mg Q4H PRN PO PAIN SCALE 1 TO 2 11/30/16 13:45 12/13/16 17:13 Clopidogrel Bisulfate (Plavix) 75 mg DAILY PO 12/01/16 09:00 Future Hold 12/25/16 08:06 Ondansetron HCl (Zofran Inj) 4 mg Q4H PRN IV NAUSEA 11/30/16 13:45 12/24/16 22:41 Sodium Chloride (NS Flush) 5 ml Q21D IV FLUSH 11/30/16 18:00 12/21/16 17:19 Heparin Sodium (Porcine) (Heparin Central Flush) 500 units Q21D IV FLUSH 11/30/16 18:00 11/30/16 18:04 Acetaminophen (Tylenol 650 Mg/ 20 ml Liq) 650 mg Q6H PRN PO FEVER 12/01/16 17:30 12/02/16 01:07 Polyethylene Glycol (Miralax) 17 gm DAILY PO 12/04/16 09:00 12/31/16 09:08 Thiamine HCl (Vitamin B1) 100 mg DAILY PO 12/05/16 09:00 01/01/17 09:53 Multivitamins (Theragran) 1 tab DAILY PO 12/05/16 09:00 01/01/17 09:53 Folic Acid (Folate) 1 mg DAILY PO 12/05/16 09:00 Future Hold 12/25/16 08:07 Rifampin (Rifampin) 300 mg Q12HR PO 12/06/16 09:15 01/15/17 23:00 Future Hold 01/01/17 09:52 Lorazepam (Ativan Inj) 1 mg Q4H PRN IV PUSH ANXIETY AND/OR AGITATION 12/09/16 15:15 12/31/16 14:16 Atorvastatin Calcium (Lipitor) 40 mg HS PO 12/12/16 21:00 Future Hold 12/24/16 21:00 Sodium Chloride (NS Flush) See Protocol DAILY IV FLUSH 12/13/16 09:00 12/27/16 08:04 Heparin Sodium (Porcine) (Heparin Central Flush) See Protocol DAILY IV FLUSH 12/13/16 09:00 12/27/16 08:05 Sodium Chloride (NS Flush) UNSCH PRN IV FLUSH SEE PROTOCOL TABLE 12/12/16 17:00 12/19/16 01:59 Lorazepam (Ativan) 0.5 mg DAILY PRN PO ANXIETY 12/18/16 15:45 Future Hold 12/19/16 08:29 Diltiazem HCl (Cardizem) 90 mg Q6H PO 12/18/16 23:00 Future Hold 12/25/16 12:14 Oxycodone HCl (Roxicodone) 15 mg Q4H PRN PO PAIN 6-10 12/21/16 11:00 12/31/16 19:51 Digoxin (Lanoxin) 0.25 mg DAILY PO 12/22/16 09:00 Future Hold 12/25/16 08:06 Sucralfate (Carafate Liq) 1 gm ACHS PO 12/22/16 11:00 01/01/17 09:53 Metoprolol Tartrate (Lopressor Inj) 5 mg Q1HR PRN IV PUSH RAPID HEART RATE 12/22/16 09:45 12/30/16 10:37 Pantoprazole Sodium (Protonix Inj) 40 mg Q12H IV PUSH 12/22/16 10:00 01/06/17 09:00 Aspirin (Ecotrin Ec) 81 mg DAILY PO 12/23/16 09:00 Future Hold 12/25/16 08:06 Metoprolol Tartrate (Lopressor) 25 mg Q6HR PO 12/22/16 13:00 01/01/17 05:30 Magnesium Oxide (Mag-Ox) 800 mg UNSCH PRN PO For Magnesium 1.2 - 1.6 mg/dL 12/25/16 21:00 12/27/16 06:46 Potassium Chloride 100 ml @ 50 mls/hr Q2H PRN IV For Potassium 3.3 - 3.5 mEq/L 12/25/16 21:00 12/29/16 09:33 Potassium Chloride 100 ml @ 25 mls/hr UNSCH PRN IV For Potassium 3.3 - 3.5 mEq/L 12/25/16 21:00 01/04/17 06:32 Sodium Phosphate 30 mmol/Sodium Chloride 250 ml @ 42 mls/hr UNSCH PRN IV For Phosphorus < 2.5 mg/dL 12/25/16 21:00 12/30/16 06:49 Chlorhexidine Gluconate (Peridex 0.12% Liq) 15 ml BID@08,20 MT 12/26/16 08:00 01/06/17 07:56 Insulin Human Regular (NovoLIN R SUPPLEMENTAL SCALE) 1 Q6HR SQ 12/26/16 00:00 01/06/17 12:00 Albuterol/ Ipratropium (Duoneb Neb) 1 ampule Q2HR NEB PRN INH WHEEZING 12/25/16 21:00 01/02/17 19:29 Clopidogrel Bisulfate (Plavix) 75 mg DAILY PO 12/29/16 09:00 01/01/17 09:52 Aspirin (Ecotrin Ec) 162 mg DAILY PO 12/29/16 09:00 Future Hold 01/01/17 09:52 Prednisone (Deltasone) 5 mg DAILY PO 12/29/16 09:00 Future Hold 01/01/17 09:49 Levothyroxine Sodium (Synthroid) 50 mcg DAILY@06 PO 12/30/16 06:00 Future Hold 01/01/17 05:30 Chlorhexidine Gluconate (Peridex 0.12% Liq) 15 ml BID@08,20 MT 01/01/17 20:00 01/02/17 21:08 Propofol 100 ml @ 0 mls/hr TITRATE IV 01/01/17 10:45 01/06/17 13:24 Cefepime HCl 2000 mg/Sodium Chloride 100 ml @ 200 mls/hr Q12H IV 01/01/17 14:00 01/06/17 13:24 Aspirin (Aspirin Supp) 300 mg DAILY RECTAL 01/03/17 09:00 01/06/17 09:00 Levothyroxine Sodium (Synthroid Inj) 25 mcg DAILY@06 IV PUSH 01/04/17 06:00 01/06/17 05:26 Rifampin 300 mg/ Sodium Chloride 100 ml @ 100 mls/hr Q12H IV 01/03/17 10:00 01/15/17 09:59 01/06/17 09:02 Methylprednisolone Sodium Succinate (SoluMEDROL INJ) 20 mg DAILY IV PUSH 01/03/17 09:00 01/06/17 09:00 Amiodarone HCl 450 mg/Sodium Chloride 250 ml @ 0 mls/hr CONTINUOUS IV 01/03/17 13:00 01/06/17 04:00 Multivitamins 10 ml/Folic Acid 1 mg/Amino Acids/ Electrolytes/ Dextrose 2,010.2 ml @ 60 mls/hr Q24H IV-CENTRAL 01/03/17 20:00 01/05/17 20:44 Artificial Tears (Tears Naturale Opth Soln) 1 drop Q8HR EACH EYE 01/04/17 14:00 01/06/17 13:25 Albumin Human (Albumin 25% Inj) 25 gm Q12H IV 01/06/17 11:00 01/08/17 10:59 01/06/17 11:25 Potassium Chloride 100 ml @ 25 mls/hr BOLUS ONCE IV 01/06/17 12:00 01/06/17 15:59 01/06/17 13:25 Objective Remarks GENERAL: Older male intubated, sedated. SKIN: Warm and dry. Cuong appearance HEAD: Normocephalic. EYES: No injection or drainage. NECK: Supple, trachea midline. CARDIOVASCULAR: Rate controlled the 60s RESPIRATORY: Scattered rhonchi anteriorly. Mechanically ventilated. GASTROINTESTINAL: Abdomen nondistended. EXTREMITIES: No cyanosis. Generalized edema NEUROLOGICAL: Sedated on propofol Assessment/Plan Problem List: (1) Esophageal adenocarcinoma ICD Codes: C15.9 - Malignant neoplasm of esophagus, unspecified Status: Acute Plan: --EUS with esophageal stent placement on 12/25 --++hemoptysis --we plan to give weekly Erbitux and XRT outpatient. --patient had OP EGD with biopsy, pathology showed adenocarcinoma. --EGD/Colonoscopy, 11/20/16--showed long stricture in the mid esophagus and distal esophagus, multiple biopsies were performed Pathology revealed invasive adenocarcinoma- distal esophagus --XRT simulation done 12/19. (2) SCC (squamous cell carcinoma) ICD Codes: C44.92 - Squamous cell carcinoma of skin, unspecified Status: Acute Plan: --has a head and neck, lung malignancy which was locally advanced. --received definitive treatment with surgery. Post surgery he had positive margins and some poor risk features and he was about to get concurrent chemotherapy and radiation and adjuvantly to achieve local control of the disease --PET scan to stage his disease prior to treatment showed an esophageal mass (3) Normocytic anemia ICD Codes: D64.9 - Anemia, unspecified Status: Acute Plan: --hgb stable --transfuse packed red blood cells if his hemoglobin drops below 8.5 --s/p iron infusion (4) Afib ICD Codes: I48.91 - Unspecified atrial fibrillation Status: Acute Plan: --cardiology following. --s/p chest tube placement on 01/06. --on Plavix (on hold) --on ASA (5) Sepsis ICD Codes: A41.9 - Sepsis, unspecified organism Status: Resolved Plan: --BC 8.18: pending BC, 7.24 no growth BC, 12/07 no growth --BC, 12/05 +, S. Aureus --had removal of port, + S. aureus --on Cefepime (6) NSTEMI (non-ST elevated myocardial infarction) ICD Codes: I21.4 - Non-ST elevation (NSTEMI) myocardial infarction Status: Acute Plan: --had elevated troponin and ST-segment changes consistent with acute ME. 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 Also with a new diagnosis of early stage gastric cancer Plan 1. Transfuse 1 unit PRBC's today. 2. Chest tube placed today. 3. monitor CBC Attending Statement The exam, history, and the medical decision-making described in the above note were completed with the assistance of the mid-level provider. I reviewed and agree with the findings presented. I attest that I had a [id number] encounter with the patient on the same day, and personally performed and documented my assessment and findings in the medical record remains intubated Anemia worsening--transfuse 1 unit of prbc in the setting of multiple issues-- respiratory failure/recent ME/pericardial effusions/on pressors On TPN plan for pericardial window once extubated [place] overnight events reviewed Problem Qualifiers (1) Afib: (2) Sepsis: Shey Flores Jan 06, 2017 16:00 Brant Bell MD Jan 06, 2017 22:18
[2017-01-06] MEDS ORDERED: SODIUM CHLOR 0.9% 250 ML INJ 250 ML IV ONE (17:00)
[2017-01-06] MEDS: CLINIMIX E 4.25/25 2000 mL- >42 mls/hr IV-CENTRAL SCH ×3 (20:38)
[2017-01-07] VITALS (16 sets, daily range): BP systolic 107–128; BP diastolic 53–61; PULSE 80–89; RESP 19–26; TEMP 98–98.7; O2SAT 94–98
[2017-01-07] MEDS: RESP: ALBUTEROL 2.5 MG/IPRATROPIUM 0.5 MG NEB (SCH) NEB ×4 (02:44→20:40)
[2017-01-07] MEDS: CEFEPIME INJ 2,000 MG in SODIUM CHLORIDE 0.9% INJ 100 ML IV SCH (02:47)
[2017-01-07 03:49] LABS: AUTOMATED NEUTROPHIL # 6.8 TH/MM3 (1.8-7.7); BASOPHIL # 0.1 TH/MM3 (0-0.2); BASOPHIL % 0.9 % (0.0-2.0); EOSINOPHIL % 0.4 % (0.0-4.0); HEMATOCRIT 25.7 % (39.0-51.0); HEMO FLAGS DIFF FINAL; LYMPH % 8.1 % (9.0-44.0); LYMPHOCYTE # 0.6 TH/MM3 (1.0-4.8); MEAN CELL VOLUME 89.3 FL (80.0-100.0); MEAN CORPUSCULAR HEMOGLOBIN 28.2 PG (27.0-34.0); MEAN CORPUSCULAR HGB CONC 31.6 % (32.0-36.0); MONO % 6.6 % (0.0-8.0); PLATELET COUNT 211 TH/MM3 (150-450); RED BLOOD COUNT 2.87 MIL/MM3 (4.50-5.90); RED CELL DISTRIBUTION WIDTH 19.6 % (11.6-17.2)
[2017-01-07 04:16] LABS: ALKALINE PHOSPHATASE 77 U/L (45-117); ALT (GPT) 11 U/L (12-78); ANION GAP 5 MEQ/L (5-15); AST (GOT) 14 U/L (15-37); BICARBONATE 32.4 MEQ/L (21.0-32.0); BLOOD UREA NITROGEN 12 MG/DL (7-18); CHLORIDE 101 MEQ/L (98-107); GLOMERULAR FILTRATION RATE 146 ML/MIN (>89); MAGNESIUM 1.6 MG/DL (1.5-2.5); POTASSIUM 3.5 MEQ/L (3.5-5.1); SODIUM (NA) 138 MEQ/L (136-145); TOTAL BILIRUBIN ADULT 0.5 MG/DL (0.2-1.0)
[2017-01-07] MEDS: POTASSIUM CHLOR 20 MEQ PREMIX 100 ML IV PRN ×2 (04:31→06:50)
--- NOTE | 2017-01-07 05:16 | RADRPT ---
EXAM DATE/TIME: 01/07/2017 04:10 [facility] COMPARISON: CHEST SINGLE AP, January 06, 2017, 12:38. INDICATIONS : Shortness of breath. MEDICAL HISTORY : Chronic obstructive pulmonary disease. Hiatal hernia. Hypertension. Diabetes mellitus type 2. He patitis C. squamous cell SURGICAL HISTORY : Appendectomy. Coronary artery stent. ENCOUNTER: Subsequent ACUITY: 1 month PAIN SCORE: Non-responsive. LOCATION: Bilateral chest FINDINGS: A single view of the chest demonstrates cardiomegaly. There is bilateral mostly basilar airspace dise ase. Mild edema pattern. Small caliber right chest tube without pneumothorax. Left PICC line in super ior vena cava. CONCLUSION: 1. Cardiomegaly with mild edema pattern. Basal airspace disease slightly increased from January 06. Pr evious endotracheal tube has been removed. Kervin Krause MD on January 07, 2017 at 5:14 Board Certified Radiologist. This report was verified electronically.
[2017-01-07] MEDS: ARTIFICIAL TEARS OPTH SOLN 15 ML BTL EACH EYE SCH ×3 (05:38→22:00)
[2017-01-07] MEDS: METOPROLOL TARTRATE 25 MG TAB PO SCH ×4 (05:39→18:00)
[2017-01-07] MEDS: LEVOTHYROXINE SODIUM 100 MCG VIAL IV PUSH SCH (05:39)
[2017-01-07] MEDS: INSULIN NovoLIN REGULAR SUPPLEMENTAL SCALE SQ SCH ×4 (05:40→18:00)
[2017-01-07] MEDS: SUCRALFATE 1 GM/10 ML CUP PO SCH ×4 (06:32→20:40)
[2017-01-07] MEDS: CHLORHEXIDINE 0.12% (ORAL KIT) 15 ML CUP MT SCH ×4 (08:00→20:00)
[2017-01-07] MEDS: SODIUM CHLORIDE 0.9% FLUSH 10 ML FLUSH IV FLUSH SCH ×3 (08:27→20:40)
[2017-01-07] MEDS: FUROSEMIDE 20 MG/2 ML VIAL IV PUSH SCH ×2 (08:42→20:40)
[2017-01-07] MEDS: DOCUSATE SODIUM 50 MG/SENNA 8.6 MG TAB PO SCH ×2 (08:43→20:39)
[2017-01-07] MEDS: methylPREDNISolone SOD SUCC 40 MG/1 ML VIAL IV PUSH SCH (08:43)
[2017-01-07] MEDS: POLYETHYLENE GLYCOL 17 GM PKG PO SCH (08:43)
[2017-01-07] MEDS: MULTIVITAMIN TAB PO SCH (08:44)
[2017-01-07] MEDS: CLOPIDOGREL 75 MG TAB PO SCH (08:44)
[2017-01-07] MEDS: ASPIRIN 300 MG SUPP RECTAL SCH (08:44)
[2017-01-07] MEDS: AMIODARONE INJ 450 MG in SODIUM CHLOR 0.9% (EXCEL) INJ 241 ML IV SCH (08:45)
[2017-01-07] MEDS: THIAMINE HCL 100 MG TAB PO SCH (08:58)
[2017-01-07] MEDS: INSULIN DETEMIR 100 UNITS/ML VIAL SQ SCH ×2 (09:00→20:39)
[2017-01-07] MEDS: PANTOPRAZOLE SODIUM 40 MG VIAL IV PUSH SCH ×2 (09:30→22:27)
[2017-01-07] MEDS: RIFAMPIN INJ 300 MG in SODIUM CHLORIDE 0.9% INJ 100 ML IV SCH ×2 (09:30→22:28)
--- NOTE | 2017-01-07 09:43 | HHI.CCPN ---
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 He was hypotensive, febrile up to 101 and received IV fluid resuscitation with improvement in his blood pressure. EKG showed ST-T wave changes, and troponin was elevated and peaked at 17.1. The patient has been evaluated by cardiology. For NSTEMI patient underwent PCI with bare metal stent to LCx by Dr. Krause on 11/30/16. The patient had a CT of the abdomen and pelvis on admission which showed marked soft tissue thickening in the distal esophagus concerning for esophageal cancer. The patient was also noted to have liver cirrhosis and mild splenomegaly. Patient has a history of alcohol intake but according to the girlfriend has not had alcoholic drinks for several months. CTA no evidence of pulmonary embolism or pneumonia. Critical care was consulted today for altered mentation, persistent fever, MSSA bacteremia and worsening sepsis. Apparently patient was agitated overnight requiring restraints. He also sustained a fall when he tried to climb out of the bed. CT of the head was negative except for a possible artifact left temporal region. An MRI which was done today came back negative. On my evaluation the ICU patient was very lethargic and tachypneic breathing approximately 35-40. ABG showed respiratory alkalosis. His altered mentation is most likely secondary to severe sepsis, alcohol withdrawal seems less likely. Blood cultures 4/4 growing MSSA, lactic acid 3,6. 12/25: Today underwent EGD with esophageal stent placement. significant bleeding from distal esophagus. GI and anesthesia felt patient should remain intubated for airway protection. In addition, patient persistently hypotensive requiring vasopressors, phenylephrine at 100 mcg/min, and in a flutter RVR on diltiazem drip. On my evaluation, patient was becoming more unstable. Adenosine 6mg iv x 1 was given which confirmed the rhythm as a flutter, but did not convert patient. give that patient was not anticoagulated, risk/benefit of electrical cardioversion at that time was in favor of conservative measures. patient bolused with amiodarone and placed on amiodarone drip, along with aggressive electrolyte replacement. Of note, patient also has new documented diagnosis of dynamic LVOT obstruction due to his LV hypertrophy and hyperdynamic cardiac function. Critical care medicine re-consulted to evaluate and manage his respiratory failure and cardiac dysrhythmias. 12/26: No more bleeding. Will work to extubate and start liquids, continue oral meds, especially beta gutierrez. 12/29: Reconsulted due to A. fib with RVR. Currently on 5 L simple mask. On amiodarone and Cardizem drips. Looks like some pulmonary edema will be actively diuresed. 12/30: Remains in A. fib with RVR. Currently on 10 L simple mask. Continues on amiodarone drip at 0.5 mg per minute and Cardizem drip at 20 mg an hour. Despite diuresis, increasing oxygen requirements. 12/31: Good response to diuresis. Weight still up about 10 kg. Dense infiltrate right chest, increasing FiO2 requirements. 01/01: Continued respiratory failure. FiO2 70% in tight BiPAP with sats 88%. Labored respirations and poor peripheral perfusion. Will need left effusion and pericardium tapped. I predict problems with hypotension if we use sedation - will start neosynephrine then induce. I have discussed the risks of pericardiocentesis and thoracentesis in detail with the patient, especially increased arrhythmia risk, possibly fatal. 01/02: Resting comfortable in bed. FiO2 40%. Arousable and follows commands. Status post pericardiocentesis yesterday. 20 cc past 24 hours. 01/03: Tmax 99.8. FiO2 down to 35%. Remains on Oziel-Synephrine at 70 g per minute. Currently normal sinus rhythm. Will attempt thoracentesis left side today permission obtainable with possible attempt at extubation soon. Initiating TPN for nutrition. 01/04: Resting comfortable in bed. Currently afebrile. #10 Indonesian pigtail catheter placed left pleural effusion yesterday. -210 cc overnight. No bowel movement 5 days. Relistor, and enema provided today. Nurse states that that patient possible seizure. CT head/EEG ordered for today. 01/05: Remains intubated sedated. L pigtail with 1.5 L output since yesterday. EEG normal- no sz. Ct head negative. Cytology from Pericardial fluid pending. Will await cytology prior to deciding on CTS consult for pericardial window Subjective 01/06: On minimal sedation. Remains on Amiodarone, Cardizem gtt. On oziel- synephrine to keep MAP >65. Pericardial drain with only minimal out put-will remove drain today. Bedside echo today. Additional Lasix and 1 dose of Diamox ordered for fluid overload 01/07: Extubated yesterday, tolerating reasonably well. good O2 sats on 4L NC. UO 5L in 24 hours, Aftab CT with 2.5 L in 24 hours. Afib rate . Will switch to PO Amiodarone. Swallow eval today. Limited 2D Echo. Pericardial drain removed yesterday 01/07. Objective Vital Signs Date Time Temp Pulse Resp B/P (MAP) Pulse Ox O2 Delivery O2 Flow Rate FiO2 01/07/17 08:45 89 136/65 01/07/17 08:14 94 Nasal Cannula 4.00 01/07/17 04:00 98.3 20 01/06/17 14:40 35 Intake and Output 01/07/17 01/07/17 01/07/17 07:59 15:59 23:59 Intake Total 463 ml Output Total 2875 ml Balance -2412 ml Result Diagram: 01/07/17 0315 01/07/17 0315 Other Results Laboratory Tests Test 01/06/17 15:40 Blood Gas Puncture Site RT RADIAL Blood Gas Patient Temperature 98.6 Blood Gas HCO3 29 mmol/L (22-26) Blood Gas Base Excess 4.2 mmol/L (-2-2) Blood Gas Oxygen Saturation 92 % (90-100) Arterial Blood pH 7.38 (7.380-7.420) Arterial Blood Partial Pressure CO2 50 mmHg (38-42) Arterial Blood Partial Pressure O2 75 mmHg (61-120) Arterial Blood Oxygen Content 11.9 Vol % (12.0-20.0) Arterial Blood Carboxyhemoglobin 1.9 % (0-4) Arterial Blood Methemoglobin 0.7 % (0-2) Blood Gas Hemoglobin 9.1 G/DL (12.0-16.0) Blood Gas Ventilator Setting CPAP 5/5 Blood Gas Inspired Oxygen 35 % Imaging Last Impressions Chest X-Ray 01/03/17 1334 Signed Impressions: Service Date/Time: Tuesday, January 03, 2017 13:42 - CONCLUSION: Stable chest. Pericardial drain. Left-sided chest tube without pneumothorax. Jagjit Tapia MD CT Angiography 12/31/16 0000 Signed Impressions: Service Date/Time: Saturday, December 31, 2016 01:00 - CONCLUSION: 1. Study is negative for pulmonary embolism. 2. Pericardial effusion, diffuse patchy consolidation in both lungs, collapse left lower lobe, bilateral pleural effusions, esophageal stent, similar to yesterday's CT thorax. Kulwant Gupta MD Thoracentesis 12/30/16 0000 Signed Impressions: Service Date/Time: Friday, December 30, 2016 15:34 - CONCLUSION: Uncomplicated CT-guided thoracentesis. Kiran Harding MD Chest CT 12/29/16 0000 Signed Impressions: Service Date/Time: Friday, December 30, 2016 10:56 - CONCLUSION: 1. Moderate bilateral pleural effusions. 2. Areas of consolidation in the upper lobes bilaterally and in the right middle and right lower lobe. There is some combination of consolidation and atelectasis seen in the left lower lobe. Underlying diffuse processes should be considered including edema. 3. Esophageal stent in place. There is increased density within the stent which could be from fluid or soft tissue. 4. Non-specific mildly prominent lymph nodes in the mediastinum. 5. Moderate pericardial effusion. 6. Possible 3rd non-displaced right rib fracture. Washington Chou MD GI Procedure 12/25/16 0000 Signed Impressions: Service Date/Time: December 19:33 - CONCLUSION: Spot film as above. Everett Pollock MD FACR Barium Swallow X-Ray 12/20/16 0000 Signed Impressions: Service Date/Time: Tuesday, December 20, 2016 13:15 - CONCLUSION: 1. The distal half of the esophagus demonstrates irregular luminal narrowing consistent with the patient's history of esophageal adenocarcinoma. 2. Mild dilatation of the esophagus immediately proximal to the esophageal mass. However, there are no signs of obstruction. 3. Small hiatal hernia. Washington Marroquin MD Abdomen MRI 12/17/16 0000 Signed Impressions: Service Date/Time: Saturday, December 17, 2016 13:59 - CONCLUSION: 1. No acute finding is identified to explain the abdominal pain. 2. Stable thickening of the distal esophagus. There is a single mildly enlarged left gastric lymph node measuring 12 x 10 mm. 3. Moderate sized bilateral pleural effusions, left larger than right, with associated compressive atelectasis. Washington Marroquin MD Head CT 12/01/16 0000 Signed Impressions: Service Date/Time: Thursday, December 01, 2016 07:59 - CONCLUSION: 1. Questionable area of low attenuation left temporal lobe could be artifact versus less likely infarct. MRI may be warranted based on clinical history. 2. No midline shift or mass effect. 3. No intraparenchymal hemorrhage. Jagjit Tapia MD Brain MRI 12/01/16 0000 Signed Impressions: Service Date/Time: Thursday, December 01, 2016 12:07 - CONCLUSION: Normal examination. Barrett Rodriguez MD Abdomen X-Ray 12/01/16 0000 Signed Impressions: Service Date/Time: Thursday, December 01, 2016 16:48 - CONCLUSION: No evidence of obstruction. Feeding tube tip in the distal stomach. Barrett Rodriguez MD Abdomen/Pelvis CT 11/29/16 2356 Signed Impressions: Service Date/Time: Wednesday, November 30, 2016 01:35 - CONCLUSION: 1. Markedly abnormal appearance of the distal esophagus consistent with the history of esophageal carcinoma. 2. Atherosclerotic calcifications of the aorta and iliac vessels. 3. Cirrhotic appearance to the liver with a mildly nodular contour present. Erik Simon MD Objective Remarks GENERAL: Patient is 61 yo male, currently on 4L NC SKIN: Warm and dry. HEAD: Normocephalic. EYES: No scleral icterus. No injection or drainage. MOUTH: No bleeding. NECK: trachea midline. No JVD. No thrush CARDIOVASCULAR: Currently normal sinus rhythm. S1, S2 no S4. Pericardial rub+. Systolic and diastolic murmur in all areas. Pericardial drain removed 01/06 RESPIRATORY: Diminished breath sounds left greater than right. Few crackles appreciated. Aftab pigtail catheter with 2400 ml output in 24 hours GASTROINTESTINAL: Abdomen soft, non-tender, nondistended. MUSCULOSKELETAL: Trace bilateral lower extremity peripheral edema. Single lumen PICC line in left upper extremity. Neuro: Awake alert, following commands currently. Off all sedation Procedures central line/ arterial line placement intubation cardiac catheterization port removal EUS with esophageal stent placement A/P Assessment and Plan NEURO/Psych: Acute metabolic encephalopathy-improving Possible alcohol withdrawal Chronic oxycodone use Encephalopathy most likely secondary to hypoxia, sepsis, now resolved Completed therapy with Thiamine, MVI for EtOH withdrawal. Acetaminophen for fever Currently off all sedation. Oxycodone for pain management 5-10 every 4 hours when necessary Holding tramadol/home medication RESP: Acute hypoxemic respiratory failure - multifactorial History COPD Anterior airway Tobacco abuse Bilateral pleural effusions - Emergently intubated and placed on mechanical ventilation 12/02/16, extubated successfully 12/03/16, (Intubated with GlideScope #4 blade Grade 2 view, easy intubation) - Re intubated 01/01/17 PRVC ventilation 16/550/1/5/35. Extubated 01/06 - Ventilator bundle. DuoNeb every 6 hours scheduled and every 2 hours when necessary - CT chest revealed bilateral pleural effusions. Thoracentesis -1200 cc 12/30. Placement of Left #10 Indonesian pigtail catheter 01/03. -40 cm, 310 ml output in 24 hours Placement of right #10 Indonesian pigtail catheter 01/06. -40 cm, 2100 ml output in 24 hour CV: Pericardial effusion, tamponade status post pericardiocentesis 01/01/17 Atrial fibrillation with RVR currently normal sinus rhythm NSTEMI Dynamic LVOT obstruction Coronary artery disease status post bare metal stent to left circumflex Krause 12/01 Emergency Pericardiocentesis drains -01/01. Cc. Cultures no growth. Removed drain 01/06, check follow up limited Echo Cardiac catheterization 12/01 revealed EF around 60%. Left main normal. RCA normal. LAD 70% ostial. Bare stent left circumflex 70%. Continue ASA 162 mg daily (300 mg NJ while nothing by mouth)/Plavix 75 mg daily Currently on amiodarone drip at 0.5 mg/m, change to PO. resume Metoprolol 25 mill grams every 6 hours (metoprolol was held secondary to no oral intake) 2-D echo no veg, EF 50-55%. Mild MR, mild AR. Pseudo-on flow obstruction due to concentric hypertrophy and hyperdynamic ventricle Holding home medications of losartan 100 mg, amlodipine 10 mg daily. On atorvastatin 40 by mouth daily for dyslipidemia when able to swallow Cytology, negative for malignancy GI: Invasive adenocarcinoma of the esophagus Liver cirrhosis - Swallow eval today- diet per speech cleared by GI - Has biopsy proven invasive adenocarcinoma of esophagus - Status post EUS/esophageal stent placement 12/25 - IV Protonix for twice a day continue. Carafate cannot be given secondary to the pass NG tube - TPN goal 60 cc an hour -wean slowly with increasing PO intake - Surgery/Dr. Rich is following. : Acute kidney failure/ATN resolved - Monitor renal function closely. Saxena catheter. -On Lasix 20 IV BID, additional 40 MG VIx1 today Follow BMP in a.m. ID: Septic shock-resolved MSSA bacteremia Kihezc-[id number]-Gomb infection status post removal Pseudomonas pneumonia - Previously Rapid clinical improvement after [id number] was removed remains off all pressors - Catheter tip culture blood culture and wound culture also positive for MSSA - Continue Rifampin, for synergy, and Cefepime antipseudomonal dosing He will need 6 weeks IV Abx - Infectious disease Dr. Nassar. 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 Bell is following - Status post surgical resection for L parotid SCC at [facility] 10/01 --Hematology plans to give weekly Erbitux and XRT outpatient. Transfuse goal hemoglobin greater than 8 ENDO: Hypokalemia Hypo-magnesium Diabetes Hypothyroidism Chronic prednisone use - Electrolyte replacement per protocol - SSI every 6 hours with detemir 30 units every 12 hours, Continue TPN. Holding home medications of metformin 1000 mg twice a day and glipizide 20 mill grams by mouth twice a day - Continue thyroid supplementation with levothyroxine 50 mg daily/home medication *(25 g IV daily while nothing by mouth) . TSH 0.555 on admission Continue Solu-Medrol 20 mg IV daily PROPH: - Bilateral lower extremity SCDs. No pharmacological prophylaxis secondary to hemoptysis -Pantoprazole 40 iv twice a day CCT 35 MIN Critically ill with multiorgan failure, but stable. Plan for bedside echo for follow up. Bean Delarosa MD Jan 07, 2017 09:43
--- NOTE | 2017-01-07 10:14 | HHI.GIFU ---
Subjective Remarks Pt resting in bed. GI was reconsulted for possible regurgitation. He has since been extubated and has not had any further episodes. S/P Swallow evaluation today- according to nurse, he passed this and they recommended mechanical soft. Official report is not in computer as of yet. Will contact ST to confirm and make sure there are no modified liquids prior to ordering. (Nga Ramos) Objective Vitals I&O Vital Signs Date Time Temp Pulse Resp B/P (MAP) Pulse Ox O2 Delivery O2 Flow Rate FiO2 01/07/17 08:45 89 136/65 01/07/17 08:14 94 Nasal Cannula 4.00 01/07/17 08:00 85 01/07/17 08:00 95 Nasal Cannula 4.00 01/07/17 07:58 128/80 01/07/17 06:00 84 01/07/17 04:00 98.3 85 20 117/61 (79) 96 01/07/17 04:00 85 01/07/17 02:00 83 01/07/17 00:00 98.2 80 23 107/53 (71) 97 01/07/17 00:00 80 01/06/17 22:00 83 01/06/17 20:17 97 Nasal Cannula 4.00 01/06/17 20:00 81 01/06/17 20:00 98.2 81 22 126/60 (82) 98 01/06/17 20:00 98 Nasal Cannula 4.00 01/06/17 18:00 78 01/06/17 16:45 84 109/53 01/06/17 16:07 96 Nasal Cannula 4.00 01/06/17 16:00 97.6 98 14 145/66 (92) 95 01/06/17 16:00 96 Nasal Cannula 4 01/06/17 16:00 98 01/06/17 16:00 95 Nasal Cannula 4.00 01/06/17 14:40 35 01/06/17 14:00 66 01/06/17 13:27 98 35 01/06/17 12:15 66 79/41 01/06/17 12:00 98.4 66 16 108/55 (72) 100 01/06/17 12:00 66 01/06/17 12:00 35 01/06/17 11:20 70 101/50 01/06/17 10:40 97 35 8/22/17 10:00 76 I/O 01/06/17 01/06/17 01/06/17 01/07/17 01/07/17 01/07/17 07:00 15:00 23:00 07:00 15:00 23:00 Intake Total 1352 ml 848 ml 2195 ml 463 ml Output Total 1322 ml 4600 ml 2875 ml Balance 30 ml 848 ml -2405 ml -2412 ml IV Total 1352 ml 848 ml 2195 ml 463 ml Output Urine Total 700 ml 2850 ml 2175 ml Chest Tube Drainage Total 620 ml 1750 ml 700 ml Drainage Total 2 ml # Bowel Movements 0 0 0 Laboratory Laboratory Tests Test 01/06/17 12:30 01/06/17 15:40 01/07/17 03:15 Pleural Fluid pH 8.5 Pleural Fluid WBC 110 Pleural Fluid RBC 1056 Pleural Fluid Neutrophils 53 Pleural Fluid Lymphocytes 40 Pleural Fluid Monocytes 2 Pleural Fluid Histiocytes 2 Pleural Fluid Mesothelial Cells 3 Pleural Fluid Total Protein 1.4 Pleural Fluid LDH 88 Pleural Fluid Glucose 277 Blood Gas Puncture Site RT RADIAL Blood Gas Patient Temperature 98.6 Blood Gas HCO3 29 Blood Gas Base Excess 4.2 Blood Gas Oxygen Saturation 92 Arterial Blood pH 7.38 Arterial Blood Partial Pressure CO2 50 Arterial Blood Partial Pressure O2 75 Arterial Blood Oxygen Content 11.9 Arterial Blood Carboxyhemoglobin 1.9 Arterial Blood Methemoglobin 0.7 Blood Gas Hemoglobin 9.1 Blood Gas Ventilator Setting CPAP 5/5 Blood Gas Inspired Oxygen 35 White Blood Count 8.0 Red Blood Count 2.87 Hemoglobin 8.1 Hematocrit 25.7 Mean Corpuscular Volume 89.3 Mean Corpuscular Hemoglobin 28.2 Mean Corpuscular Hemoglobin Concent 31.6 Red Cell Distribution Width 19.6 Platelet Count 211 Mean Platelet Volume 8.3 Neutrophils (%) (Auto) 84.0 Lymphocytes (%) (Auto) 8.1 Monocytes (%) (Auto) 6.6 Eosinophils (%) (Auto) 0.4 Basophils (%) (Auto) 0.9 Neutrophils # (Auto) 6.8 Lymphocytes # (Auto) 0.6 Monocytes # (Auto) 0.5 Eosinophils # (Auto) 0.0 Basophils # (Auto) 0.1 CBC Comment DIFF FINAL Differential Comment Blood Urea Nitrogen 12 Creatinine 0.57 Random Glucose 248 Total Protein 5.7 Albumin 1.8 Calcium Level 7.6 Magnesium Level 1.6 Alkaline Phosphatase 77 Aspartate Amino Transf (AST/SGOT) 14 Alanine Aminotransferase (ALT/SGPT) 11 Total Bilirubin 0.5 Sodium Level 138 Potassium Level 3.5 Chloride Level 101 Carbon Dioxide Level 32.4 Anion Gap 5 Estimat Glomerular Filtration Rate 146 Date/Time Source Procedure Growth Status 01/02/17 06:00 Blood Peripheral Aerobic Blood Culture - Preliminary NO GROWTH IN 4 DAYS Resulted 01/02/17 06:00 Blood Peripheral Anaerobic Blood Culture - Preliminary NO GROWTH IN 4 DAYS Resulted 01/06/17 12:30 Fluid Pleural Fluid Fungal Smear - Final NO FUNGAL ELEMENTS SEEN. Resulted 01/06/17 12:30 Fluid Pleural Fluid Fungal Culture Pending Resulted 12/24/16 12:42 Stool Stool Stool Occult Blood (DAINA) - Final HEMOCCULT NEGATIVE Complete 01/02/17 20:13 Sputum Endotracheal Gram Stain - Final Complete 01/02/17 20:13 Sputum Culture - Final Pseudomonas Aeruginosa Complete 12/01/16 17:00 Urine Catheterized Urine Urine Culture - Final Staphylococcus Aureus Complete 12/02/16 20:00 Catheter Tip Other Wound Culture - Final Staphylococcus Aureus Complete Imaging Last Impressions Chest X-Ray 01/07/17 0600 Signed Impressions: Service Date/Time: Saturday, January 07, 2017 04:10 - CONCLUSION: 1. Cardiomegaly with mild edema pattern. Basal airspace disease slightly increased from January 06. Previous endotracheal tube has been removed. Kervin Krause MD Abdomen X-Ray 01/05/17 0600 Signed Impressions: Service Date/Time: Thursday, January 05, 2017 04:11 - CONCLUSION: 1. Residual contrast in large bowel. No evidence for obstruction. Kervin Krause MD Head CT 01/04/17 0000 Signed Impressions: Service Date/Time: Thursday, January 05, 2017 03:41 - CONCLUSION: 1. No acute intracranial abnormalities. Fluid in the mastoid air cells characteristic of mastoiditis. Kervin Krause MD CT Angiography 12/31/16 0000 Signed Impressions: Service Date/Time: Saturday, December 31, 2016 01:00 - CONCLUSION: 1. Study is negative for pulmonary embolism. 2. Pericardial effusion, diffuse patchy consolidation in both lungs, collapse left lower lobe, bilateral pleural effusions, esophageal stent, similar to yesterday's CT thorax. Kulwant Gupta MD Thoracentesis 12/30/16 0000 Signed Impressions: Service Date/Time: Friday, December 30, 2016 15:34 - CONCLUSION: Uncomplicated CT-guided thoracentesis. Kiran Harding MD Chest CT 12/29/16 0000 Signed Impressions: Service Date/Time: Friday, December 30, 2016 10:56 - CONCLUSION: 1. Moderate bilateral pleural effusions. 2. Areas of consolidation in the upper lobes bilaterally and in the right middle and right lower lobe. There is some combination of consolidation and atelectasis seen in the left lower lobe. Underlying diffuse processes should be considered including edema. 3. Esophageal stent in place. There is increased density within the stent which could be from fluid or soft tissue. 4. Non-specific mildly prominent lymph nodes in the mediastinum. 5. Moderate pericardial effusion. 6. Possible 3rd non-displaced right rib fracture. Washington Chou MD GI Procedure 12/25/16 0000 Signed Impressions: Service Date/Time: December 19:33 - CONCLUSION: Spot film as above. Everett Pollock MD FACR Barium Swallow X-Ray 12/20/16 0000 Signed Impressions: Service Date/Time: Tuesday, December 20, 2016 13:15 - CONCLUSION: 1. The distal half of the esophagus demonstrates irregular luminal narrowing consistent with the patient's history of esophageal adenocarcinoma. 2. Mild dilatation of the esophagus immediately proximal to the esophageal mass. However, there are no signs of obstruction. 3. Small hiatal hernia. Washington Marroquin MD Abdomen MRI 12/17/16 0000 Signed Impressions: Service Date/Time: Saturday, December 17, 2016 13:59 - CONCLUSION: 1. No acute finding is identified to explain the abdominal pain. 2. Stable thickening of the distal esophagus. There is a single mildly enlarged left gastric lymph node measuring 12 x 10 mm. 3. Moderate sized bilateral pleural effusions, left larger than right, with associated compressive atelectasis. Washington Marroquin MD Brain MRI 12/01/16 0000 Signed Impressions: Service Date/Time: Thursday, December 01, 2016 12:07 - CONCLUSION: Normal examination. Barrett Rodriguez MD Abdomen/Pelvis CT 11/29/16 [id number] Signed Impressions: Service Date/Time: Wednesday, November 30, 2016 01:35 - CONCLUSION: 1. Markedly abnormal appearance of the distal esophagus consistent with the history of esophageal carcinoma. 2. Atherosclerotic calcifications of the aorta and iliac vessels. 3. Cirrhotic appearance to the liver with a mildly nodular contour present. Erik Simon MD Physical Exam HEENT: Normocephalic; atraumatic; no jaundice. CHEST: Course breath sounds CARDIAC: RRR, systolic murmur, rub ABDOMEN: Soft, obese, nondistended, nontender; no hepatosplenomegaly; bowel sounds x 4 EXTREMITIES: Generalized edema SKIN: Normal; no rash; no jaundice. (Nga Ramos) Assessment and Plan Plan ASSESSMENT: - Odynophagia/Dysphagia. Worsening since Barium Swallow on 12/[address] following, pureed diet. Barium Swallow X-Ray 12/20/16--1. The distal half of the esophagus demonstrates irregular luminal narrowing consistent with the patient's history of esophageal adenocarcinoma. 2. Mild dilatation of the esophagus immediately proximal to the esophageal mass. However, there are no signs of obstruction. 3. Small hiatal hernia. Also bringing up small to moderate amount of bloody frothy secretions. S/P EUS with esophageal stent placement --> esophageal ca T3 N0 Mx, large friable mass with oozing, food and debris in esophagus, lengthy process to clean out. On TPN. GI was reconsulted yesterday for possible regurgitation. He has since been extubated and has not had any further episodes. ST was in and according to nurse, he passed for mechanical soft diet. Call placed to ST to confirm prior to ordering diet. Will start diet and their recommendations with ensure. Once tolerating PO, then will wean TPN. If not able to tolerate, consider upper gi series. - Upper GIB. RESOLVED. HH 8.06/11.7 - Esophageal cancer. PET Scan (10/28/16)----> negative examination of the head and neck, findings characteristic of esophageal neoplasm. S/P EGD/Colonoscopy (11/20/16)----> There was a long stricture i the mid esophagus and distal esophagus, multiple biopsies were performed, the mucosa of the stomach appeared normal, duodenal mucosa showed no abnormalities in the entire duodenum, retroflexed views revealed a small hiatal hernia; nine sessile polyps ranging from 4-12 mm in size were found at the cecum, in the ascending colon, descending colon, sigmoid colon, and rectum; polypectomy was performed using snare cautery, moderate diverticulosis was noted in the left colon, retroflexed views revealed internal grade I hemorrhoids, a digital rectal exam was performed and revealed no abnormalities of the anus. Pathology revealed invasive adenocarcinoma- distal esophagus, descending colon polyp and rectosigmoid polyp both benign hyperplastic colonic polyp, no adenomatous change or malignancy is seen. S/P XRT Simulation. Plan is for erbitux, radiation as outpatient. EUS as above - Constipation. (+) BM. Miralax - Abnormal imaging of the liver on CT scan, consistent with cirrhosis. Abdomen/ Pelvis CT (11/29/16)----> 1. Markedly abnormal appearance of the distal esophagus consistent with the history of esophageal carcinoma. 2. Atherosclerotic calcifications of the aorta and iliac vessels. 3. Cirrhotic appearance to the liver with a mildly nodular contour present. Abdomen MRI 12/17/16--1. No acute finding is identified to explain the abdominal pain. 2. Stable thickening of the distal esophagus. There is a single mildly enlarged left gastric lymph node measuring 12 x 10 mm. 3. Moderate sized bilateral pleural effusions, left larger than right, with associated compressive atelectasis. Unclear if he has hx of cirrhosis. There is mention of hx of HCV in EMR, but patient has had undetectable viral load as far back as 2001. Pt does report he has a history of HCV and was successfully treated with Interferon/ribavirin in the past. Iron saturation 4.1%, Ferritin 124, Hepatitis C antibodies (+), viral load undetectable, TERRIE negative, ASMA < 20.0, AMA neg, Ceruloplasmin 40 and alpha 1 antitrypsin 298. Labs and imaging consistent with cirrhosis. Pt does not currently drink, but states that he was a heavy drinker in the past. LFT stable. - Afib with RVR, Pericardial effusion, tamponade, s/p pericardiocentesis, NSTEMI. S/P left heart catheterization (11/30/16) with Dr. Murillo and this revealed RCA 10% lesion mid segment, mild calcifications left main, LAD with calcification from it's proximal segment to its midsegment however, with no significant obstructive lesions, The LAD is giving off to a diagonal which has a 70% lesion in its ostial segment, left circumflex artery with a proximal clot thrombus, S/P percutaneous coronary intervention/bare metal stent to proximal left circumflex. Now SR, Rate controlled. Cardiology following. - Respiratory failure, COPD, bilateral pleural effusion. S/P extubation. Right CT. - CLARA with electrolyte abnormalities. Improved. - Sepsis/Bacteremia/UTI. Urine and Bcx with Staphylococcus aureus. S/P removal of infusaport by GS (12/02). Rpt bcx no growth. Rifampin, cefepime - AMS, Acute metabolic encephalopathy. Head CT (12/01/16)-----> 1. Questionable area of low attenuation left temporal lobe could be artifact versus less likely infarct. MRI may be warranted based on clinical history. 2. No midline shift or mass effect. 3. No intraparenchymal hemorrhage. Brain MRI (12/01/16 )----> Normal examination. 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 S/P mohs surgery by a product planner in September of 2015 and shortly after this, developed a mass near the surgical area. S/P at [facility] with Dr. Valdovinos in June of 2016----> underwent extensive head and neck surgery involving a parotidectomy and radical neck dissection in September of 2016. Because of high risk features of local recurrence with perineural invasion and positive margins, it was recommended that he have concurrent chemoradiation therapy. He was evaluated by Dr. Cross for radiation and seen by Dr. Bell for oncology. PET Scan ()---> negative examination of the head and neck, findings characteristic of esophageal neoplasm. Direct visualization is recommended. - Hx HTN, Hyperlipidemia, DM. per attending. PLAN: - Await ST diet recommendations - Okay to start diet per their recommendations with ensure - Once tolerating diet, wean TPN - If unable to tolerate diet, consider upper gi series - KUB to evaluate for dislodged esophageal stent - Monitor HH, transfuse as necessary - Cont. PPI - Cont. Carafate - Cont. Miralax - Monitor labs - Supportive care - Patient seen and examined by Dr. Nails and myself and this note is written on his behalf. (Nga Ramos) Physician Comments Seen and examined, plan as above, will follow up with you. Pending X-Ray and Swallowing eval. (Quintin Nails MD) Nga Ramos Jan 07, 2017 10:14 Quintin Nails MD Jan 07, 2017 11:39
[2017-01-07] MEDS: ALBUMIN HUMAN 25% 25 GM/100 ML BAGP IV SCH ×2 (10:18→22:27)
[2017-01-07] MEDS: AMIODARONE 200 MG TAB PO SCH ×2 (10:18→20:40)
[2017-01-07] MEDS ORDERED: POTASSIUM CHLOR 40 MEQ PREMIX 100 ML IV ONE (10:30)
[2017-01-07] MEDS ORDERED: FUROSEMIDE 40 MG/4 ML VIAL IV PUSH ONE (10:30)
--- NOTE | 2017-01-07 11:02 | HHI.HCPN ---
Reason for visit a. To assist with evaluation and management of symptoms including: Pain, shortness of breath and debility. b. To assist medical decision maker(s) with: better understanding of current medical conditions; weighing benefits/burdens of medical treatment options; making medical treatment decisions. . Subjective/Interval History Mr. 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 Clinical course complicated by NSTEMI, patient underwent PCI with bare metal stents on 11/30/16. Clinical course further complicated by persistent fever, MSSA bacteremia, worsening sepsis, A. fib with RVR and persistent respiratory failure. Clinical course complicated by hypoxemic respiratory failure required intubation and mechanical ventilation and cardiac tamponade requiring pericardiocentesis on 01/01/17. Patient medically extubated 01/06/17. Right-sided chest tube placed and pericardial drain discontinued yesterday. According to RN, patient has been evaluated by speech therapy. Mechanical soft diet recommended. GI following, plan to wean TPN once patient is tolerating diet. Pericardial fluid cytology results available, negative for malignancy. Patient will not likely require pericardial window. Patient currently tolerating O2 via nasal cannula at 4 L. He was seen in ICU, resting in bed in no acute distress. Alert and oriented x self, place and situation. Confused/forgetful at times. Verbal. Endorsing generalized pain, denies abdominal discomfort. Chest x-ray today revealing cardiomegaly with mild edema pattern. Basal airspace disease slightly increased from prior study. Laboratory workup today revealing stable Hgb at 8.1 from 8.2 yesterday. PRBC x1 ordered by oncology. Platelet count 211. Albumin 1.8. Bedside conversation with patient's daughter Mena La, medical update provided. Shared concerns of patient's clinical condition, discussed that he is still at high risk for further complications, continue decline and given his persistent respiratory failure requiring intubation and mechanical ventilation x3, multiple ongoing chronic comorbidities and profound physical deconditioning/debility. Discussed CODE STATUS with patient, patient electing to remain full code at this time. Encouraged daughter to continue goals of care conversation given high risk for further decline. Patient will likely require physical therapy upon discharge. . Family/friend interactions See interval note. . Advance Directives Living Will: Never completed Health Care Surrogate: Copy in medical record Durable Power of Audiovisual Equipment Operator: Never completed Advance Directive Specifics Date completed: 12/25/16. . Health Care Surrogate(s): Patient designated his daughter Mena La AND girlfriend Luly Bautista as co- healthcare surrogate decision makers. . Documented care wishes: No living will. . Significant change in goals: Goals of care remain unchanged. . Objective Vital Signs Date Time Temp Pulse Resp B/P (MAP) Pulse Ox O2 Delivery O2 Flow Rate FiO2 01/07/17 10:00 85 01/07/17 08:45 89 136/65 01/07/17 08:14 94 Nasal Cannula 4.00 01/07/17 08:00 98.7 89 26 126/60 (82) 96 01/07/17 08:00 85 01/07/17 08:00 95 Nasal Cannula 4.00 01/07/17 07:58 128/80 01/07/17 06:00 84 01/07/17 04:00 98.3 85 20 117/61 (79) 96 01/07/17 04:00 85 01/07/17 02:00 83 01/07/17 00:00 98.2 80 23 107/53 (71) 97 01/07/17 00:00 80 01/06/17 22:00 83 01/06/17 20:17 97 Nasal Cannula 4.00 01/06/17 20:00 81 01/06/17 20:00 98.2 81 22 126/60 (82) 98 01/06/17 20:00 98 Nasal Cannula 4.00 01/06/17 18:00 78 01/06/17 16:45 84 109/53 01/06/17 16:07 96 Nasal Cannula 4.00 01/06/17 16:00 97.6 98 14 145/66 (92) 95 01/06/17 16:00 96 Nasal Cannula 4 01/06/17 16:00 98 01/06/17 16:00 95 Nasal Cannula 4.00 01/06/17 14:40 35 01/06/17 14:00 66 01/06/17 13:27 98 35 01/06/17 12:15 66 79/41 01/06/17 12:00 98.4 66 16 108/55 (72) 100 01/06/17 12:00 66 01/06/17 12:00 35 01/06/17 11:20 70 101/50 Intake & Output 01/07/17 01/07/17 06:59 18:59 Intake Total 463 ml 243 ml Output Total 2875 ml Balance -2412 ml 243 ml IV Total 463 ml 243 ml Output Urine Total 2175 ml Chest Tube Drainage Total 700 ml # Bowel Movements 0 Physical Exam CONSTITUTIONAL/GENERAL: This is an adequately nourished patient in no acute distress. TUBES/LINES/DRAINS: PICC line to PIYUSH, SCDs, Saxena catheter. PIV's, left-sided and right sided chest tube. SKIN: No jaundice, rashes, or lesions. Scattered ecchymosis to upper extremities. Skin temperature appropriate. Not diaphoretic. HEAD: Atraumatic. Normocephalic. EYES: Pupils equal and round and reactive. Nonicteric. ENT: Hearing appears normal. Nose without bleeding or purulent drainage. Moist oral mucosa. Dry lips. NECK: Trachea midline. Supple. CARDIOVASCULAR: Regular rate and rhythm, systolic murmur. Edema to bilateral upper and lower extremities. RESPIRATORY/CHEST: Symmetric. Clear breath sounds bilaterally. GASTROINTESTINAL: Abdomen soft, round. bowel sounds present. GENITOURINARY: Without palpable bladder distension. Saxena catheter intact to bedside drainage. MUSCULOSKELETAL: Moving all extremities independently. NEUROLOGICAL: Alert and oriented x self, place and situation. Intermittently confused/forgetful. PSYCHIATRIC: Calm. . Diagnostic Tests Laboratory Laboratory Tests Test 01/04/17 21:23 01/05/17 03:26 01/06/17 04:04 01/06/17 12:30 Potassium Level 3.6 MEQ/L (3.5-5.1) 3.6 MEQ/L (3.5-5.1) 3.8 MEQ/L (3.5-5.1) White Blood Count 7.4 TH/MM3 (4.0-11.0) 8.1 TH/MM3 (4.0-11.0) Red Blood Count 3.02 MIL/MM3 (4.50-5.90) 2.88 MIL/MM3 (4.50-5.90) Hemoglobin 8.7 GM/DL (13.0-17.0) 8.2 GM/DL (13.0-17.0) Hematocrit 26.7 % (39.0-51.0) 25.5 % (39.0-51.0) Mean Corpuscular Volume 88.6 FL (80.0-100.0) 88.3 FL (80.0-100.0) Mean Corpuscular Hemoglobin 28.9 PG (27.0-34.0) 28.4 PG (27.0-34.0) Mean Corpuscular Hemoglobin Concent 32.7 % (32.0-36.0) 32.2 % (32.0-36.0) Red Cell Distribution Width 19.7 % (11.6-17.2) 19.1 % (11.6-17.2) Platelet Count 245 TH/MM3 (150-450) 211 TH/MM3 (150-450) Mean Platelet Volume 8.3 FL (7.0-11.0) 8.0 FL (7.0-11.0) Neutrophils (%) (Auto) 78.1 % (16.0-70.0) 81.3 % (16.0-70.0) Lymphocytes (%) (Auto) 12.5 % (9.0-44.0) 10.3 % (9.0-44.0) Monocytes (%) (Auto) 8.1 % (0.0-8.0) 6.3 % (0.0-8.0) Eosinophils (%) (Auto) 0.8 % (0.0-4.0) 0.7 % (0.0-4.0) Basophils (%) (Auto) 0.5 % (0.0-2.0) 1.4 % (0.0-2.0) Neutrophils # (Auto) 5.8 TH/MM3 (1.8-7.7) 6.6 TH/MM3 (1.8-7.7) Lymphocytes # (Auto) 0.9 TH/MM3 (1.0-4.8) 0.8 TH/MM3 (1.0-4.8) Monocytes # (Auto) 0.6 TH/MM3 (0-0.9) 0.5 TH/MM3 (0-0.9) Eosinophils # (Auto) 0.1 TH/MM3 (0-0.4) 0.1 TH/MM3 (0-0.4) Basophils # (Auto) 0.0 TH/MM3 (0-0.2) 0.1 TH/MM3 (0-0.2) CBC Comment DIFF FINAL DIFF FINAL Differential Comment Blood Urea Nitrogen 13 MG/DL (7-18) 13 MG/DL (7-18) Creatinine 0.55 MG/DL (0.60-1.30) 0.54 MG/DL (0.60-1.30) Random Glucose 282 MG/DL (74-106) 273 MG/DL (74-106) Total Protein 5.6 GM/DL (6.4-8.2) 5.3 GM/DL (6.4-8.2) Albumin 1.2 GM/DL (3.4-5.0) 1.1 GM/DL (3.4-5.0) Calcium Level 7.5 MG/DL (8.5-10.1) 7.4 MG/DL (8.5-10.1) Phosphorus Level 2.5 MG/DL (2.5-4.9) Magnesium Level 1.9 MG/DL (1.5-2.5) 1.7 MG/DL (1.5-2.5) Alkaline Phosphatase 86 U/L (45-117) 84 U/L (45-117) Aspartate Amino Transf (AST/SGOT) 20 U/L (15-37) 19 U/L (15-37) Alanine Aminotransferase (ALT/SGPT) 16 U/L (12-78) 15 U/L (12-78) Total Bilirubin 0.3 MG/DL (0.2-1.0) 0.3 MG/DL (0.2-1.0) Sodium Level 136 MEQ/L (136-145) 135 MEQ/L (136-145) Chloride Level 98 MEQ/L (98-107) 97 MEQ/L (98-107) Carbon Dioxide Level 31.6 MEQ/L (21.0-32.0) 33.1 MEQ/L (21.0-32.0) Anion Gap 6 MEQ/L (5-15) 5 MEQ/L (5-15) Estimat Glomerular Filtration Rate 152 ML/MIN (>89) 156 ML/MIN (>89) Total Creatine Kinase 41 U/L (39-308) Protein Corrected Calcium 8.4 MG/DL (8.5-10.1) Pleural Fluid pH 8.5 Pleural Fluid WBC 110 /MM3 (0-10) Pleural Fluid RBC 1056 /MM3 (0-0) Pleural Fluid Neutrophils 53 % Pleural Fluid Lymphocytes 40 % Pleural Fluid Monocytes 2 % Pleural Fluid Histiocytes 2 % Pleural Fluid Mesothelial Cells 3 % Pleural Fluid Total Protein 1.4 GM/DL Pleural Fluid LDH 88 U/L Pleural Fluid Glucose 277 MG/DL Test 01/06/17 15:40 01/07/17 03:15 Blood Gas Puncture Site RT RADIAL Blood Gas Patient Temperature 98.6 Blood Gas HCO3 29 mmol/L (22-26) Blood Gas Base Excess 4.2 mmol/L (-2-2) Blood Gas Oxygen Saturation 92 % (90-100) Arterial Blood pH 7.38 (7.380-7.420) Arterial Blood Partial Pressure CO2 50 mmHg (38-42) Arterial Blood Partial Pressure O2 75 mmHg (61-120) Arterial Blood Oxygen Content 11.9 Vol % (12.0-20.0) Arterial Blood Carboxyhemoglobin 1.9 % (0-4) Arterial Blood Methemoglobin 0.7 % (0-2) Blood Gas Hemoglobin 9.1 G/DL (12.0-16.0) Blood Gas Ventilator Setting CPAP 5/5 Blood Gas Inspired Oxygen 35 % White Blood Count 8.0 TH/MM3 (4.0-11.0) Red Blood Count 2.87 MIL/MM3 (4.50-5.90) Hemoglobin 8.1 GM/DL (13.0-17.0) Hematocrit 25.7 % (39.0-51.0) Mean Corpuscular Volume 89.3 FL (80.0-100.0) Mean Corpuscular Hemoglobin 28.2 PG (27.0-34.0) Mean Corpuscular Hemoglobin Concent 31.6 % (32.0-36.0) Red Cell Distribution Width 19.6 % (11.6-17.2) Platelet Count 211 TH/MM3 (150-450) Mean Platelet Volume 8.3 FL (7.0-11.0) Neutrophils (%) (Auto) 84.0 % (16.0-70.0) Lymphocytes (%) (Auto) 8.1 % (9.0-44.0) Monocytes (%) (Auto) 6.6 % (0.0-8.0) Eosinophils (%) (Auto) 0.4 % (0.0-4.0) Basophils (%) (Auto) 0.9 % (0.0-2.0) Neutrophils # (Auto) 6.8 TH/MM3 (1.8-7.7) Lymphocytes # (Auto) 0.6 TH/MM3 (1.0-4.8) Monocytes # (Auto) 0.5 TH/MM3 (0-0.9) Eosinophils # (Auto) 0.0 TH/MM3 (0-0.4) Basophils # (Auto) 0.1 TH/MM3 (0-0.2) CBC Comment DIFF FINAL Differential Comment Blood Urea Nitrogen 12 MG/DL (7-18) Creatinine 0.57 MG/DL (0.60-1.30) Random Glucose 248 MG/DL (74-106) Total Protein 5.7 GM/DL (6.4-8.2) Albumin 1.8 GM/DL (3.4-5.0) Calcium Level 7.6 MG/DL (8.5-10.1) Magnesium Level 1.6 MG/DL (1.5-2.5) Alkaline Phosphatase 77 U/L (45-117) Aspartate Amino Transf (AST/SGOT) 14 U/L (15-37) Alanine Aminotransferase (ALT/SGPT) 11 U/L (12-78) Total Bilirubin 0.5 MG/DL (0.2-1.0) Sodium Level 138 MEQ/L (136-145) Potassium Level 3.5 MEQ/L (3.5-5.1) Chloride Level 101 MEQ/L (98-107) Carbon Dioxide Level 32.4 MEQ/L (21.0-32.0) Anion Gap 5 MEQ/L (5-15) Estimat Glomerular Filtration Rate 146 ML/MIN (>89) Result Diagram: 01/07/1731401/07/17314 Microbiology Microbiology Date/Time Source Procedure Growth Status 01/06/17 12:30 Fluid Pleural Fluid Fungal Smear - Final NO FUNGAL ELEMENTS SEEN. Resulted 01/06/17 12:30 Fluid Pleural Fluid Fungal Culture Pending Resulted 01/06/17 12:30 Fluid Pleural Fluid Acid Fast Stain Pending Received 01/06/17 12:30 Fluid Pleural Fluid Mycobacterial Culture Pending Received 01/06/17 12:30 Fluid Pleural Fluid Gram Stain - Final Resulted 01/06/17 12:30 Fluid Pleural Fluid Body Fluid Culture Pending Resulted Imaging Last 24 hours Impressions Chest X-Ray 01/07/17 0600 Signed Impressions: Service Date/Time: Saturday, January 07, 2017 04:10 - CONCLUSION: 1. Cardiomegaly with mild edema pattern. Basal airspace disease slightly increased from January 06. Previous endotracheal tube has been removed. Kervin Krause MD Procedures 11/30/16 - he underwent left and right heart catheterization with the following findings: RCA-dominant, 10% lesion mid. PDA-patent with TALI III flow. LM-no significant obstructive lesions. LAD-transapical, no significant obstructive lesions. Diagonal-70% lesion ostial, small vessel. Left circumflex-proximal clot thrombus, TALI II flow with 2 OM branches, both patent. Procedure-PCI/BMS to proximal left circumflex in setting of NSTEMI. No left ventriculogram done due to concern for renal function. EF by echocardiogram 12/01/16 was 50-55%, mild concentric left ventricular hypertrophy, normal right ventricular size and function, no significant valvular disease, pulmonary hypertension or effusion noted. This was reexamined 87 due to concern for possible pericardial infusion. Findings included dynamic "pseudo-" outflow tract obstructive physiology due to concentric hypertrophy and hyperdynamic systolic function with mild mitral regurgitation, mild aortic valve regurgitation and small to moderate pericardial effusion, not hemodynamically significant. 12/02/16-left axillary arterial line placement. 12/02/16-intubation. 12/02/16 left subclavian central line placement. 12/02/1698-Utpkal-p-Port removal secondary to sepsis. 12/25/16-EUS followed by an EGD with esophageal stent placement 12/25/16-reintubation 12/25/16-arterial line placement 12/26/16 -extubation 01/01/17 -pericardiocentesis 01/01/17 -left-sided chest tube placement 01/01/17 -reintubation 01/06/17 -medical extubation 01/06/17 -removal of pericardial drainage 01/06/17 -right sided chest tube placement . . Assessment and Plan Disease Oriented Problem List: (1) Respiratory failure (2) Edema (3) Esophageal carcinoma (4) SCC (squamous cell carcinoma) (5) NSTEMI (non-ST elevated myocardial infarction) (6) Atrial fibrillation with RVR (7) Physical deconditioning Symptom Scale: (1) Shortness of breath 0-10 Scale: Unable to quantify Comment: Persistent respiratory failure, medically extubated 01/06/17. Currently tolerating O2 via nasal cannula at 4 L. (2) Pain 0-10 Scale: Unable to quantify Comment: Oxycodone PRN available. (3) Debility 0-10 Scale: Unable to quantify Comment: Progressive, secondary to acute illness and prolonged hospitalization. (4) Edema 0-10 Scale: Unable to quantify Pertinent Non-Medical Issues Psychosocial:This is a 61-year-old male that was born in [place], [place] and moved to [place] when he was 15. He never attended high school after he moved to [place] nor obtained his GED. 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 He was never in the . Spiritual: No spiritual affiliation. Legal: Has designated his daughter Ben La and his girlfriend Luly Bautista as joint healthcare surrogates. Ethical issues impacting care: None noted. . Important Contacts Daughter-Ben La Significant other-Luly Bautista , Mother-Orly Sky (Ama[place]), [place], [place] . Prognosis Mr. 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 Clinical course complicated by NSTEMI, patient underwent PCI with bare metal stents on 11/30/16. Clinical course further complicated by persistent fever, MSSA bacteremia, worsening sepsis, A. fib with RVR and persistent respiratory failure. Patient underwent EGD with esophageal stent placement on 12/25/16, complicated by significant bleeding from distal esophagus, in addition to persistent respiratory failure. Patient at a very high risk for further complications, continue decline and . . Code Status: Full Code Plan * CODE STATUS: Full code. CODE STATUS will readdress 01/07/17, Patient electing full code. * HEALTHCARE DECISION-MAKING: Patient participating in medical decision-making. Fair insight into his clinical issues and high risk for further decline. Patient has designated his daughter Mena La AND girlfriend Luly Plunkett as co-healthcare surrogate decision makers. * GOALS OF CARE: 01/07/17. CODE STATUS readdressed post extubation. Patient electing to continue aggressive management to include full code. Patient previously verbalized NOT wishing tracheostomy if he were unable to be medically extubate. Shared concerns of patient's clinical condition, discussed that he is still at high risk for further complications, continue decline and given his persistent respiratory failure requiring intubation and mechanical ventilation x3, multiple ongoing chronic comorbidities and profound physical deconditioning/debility. Patient and daughter Mena were encouraged to continue goals of care conversation and completion of living will. Palliative care to follow-up for assistance. Patient will likely require acute rehabilitation upon discharge. * SYMPTOMS: = Shortness of breath, secondary to persistent respiratory failure. Medically extubated 01/06/17, currently tolerating O2 via nasal cannula at 4 L. Bilateral chest tubes in place. = Pain, multifactorial. Likely secondary to multiple procedures, prolonged hospitalization, bedrest. Oxycodone 15 mg Q4h PRN available as needed. = Debility, secondary to acute illness and prolonged hospitalization. Likely to continue to worsen. * Case discussed with bedside RN. * Ongoing emotional support and active listening provided to patient and daughter Mena. * Palliative care contact information has been provided to patient and family. * Palliative care will continue to follow-up for further clarifications of goals of care as patient's clinical course continues to evolve. . Time Spent Total Floor Time (mins): 41 (Total time to include review and summarization of medical records, physical exam, goals of care conversation with patient and daughter Mena and case discussion with bedside RN.) >50% Counseling/Coord of Care: Yes Attestation To help prompt me to consider important information that might be impacting today's encounter and assessment, information from prior notes written by myself or my colleagues may have been "brought forward" into today's note. My signature on this note, however, is an attestation that I personally performed the exam, history, and/or decision-making noted today, and, unless otherwise indicated, the interactions with patient, family, and staff as well as the review of records all occurred today. I also attest that the listed assessment and stated plan reflect my best clinical judgment today based on the combination of historical information, prior notes, and today's exam/ interactions. When time spent is documented, it refers only to time spent today by the signer, or if indicated, combined time spent today by collaborating physician/nurse practitioner. Ida Alston Jan 07, 2017 11:02
--- NOTE | 2017-01-07 12:32 | RADRPT ---
EXAM DATE/TIME: 01/07/2017 11:56 [facility] COMPARISON: No previous studies available for comparison. INDICATIONS : Evaluate for dislodged esophageal stent. MEDICAL HISTORY : Chronic obstructive pulmonary disease. Hiatal hernia. Hypertension. Diabetes mellitus type 2. 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 SURGICAL HISTORY : Appendectomy. Coronary artery stent. ENCOUNTER: Subsequent ACUITY: 1 day PAIN SCORE: 0/10 LOCATION: Bilateral chest FINDINGS: There is contrast seen throughout the large bowel. Faintly visualized overlying the expected location of the distal esophagus is a partially imaged esophageal stent. CONCLUSION: Visualized portions of the lower chest demonstrate a presumed esophageal stent. Erik Simon MD on January 07, 2017 at 12:30 Board Certified Radiologist. This report was verified electronically.
--- NOTE | 2017-01-07 13:16 | ECHRPT ---
Indication: Pericardial effusion (noninflammatory) CONCLUSIONS Normal left ventricular size and wall thickness. The left ventricular systolic function is normal wi th an estimated ejection fraction in the range of 60-65%. Left ventricular diastolic function parameters a re normal. No valvular abnormalities are noted. There is a trivial to small pericardial effusion present. No echocardiographic evidence for tamponad e. BP: / HR: Rhythm: Sinus Technical Quality:Good FINDINGS LEFT VENTRICLE Normal left ventricular size and wall thickness. The left ventricular systolic function is normal wi th an estimated ejection fraction in the range of 60-65%. Left ventricular diastolic function parameters a re normal. RIGHT VENTRICLE Normal right ventricular size and systolic function. LEFT ATRIUM The left atrial size is normal. RIGHT ATRIUM The right atrial size is normal. ATRIAL SEPTUM Normal atrial septal thickness without atrial level shunting by limited color doppler interrogation. AORTA The aortic root and proximal ascending aorta are normal in size on limited imaging. MITRAL VALVE Structurally normal mitral valve. No mitral valve stenosis or regurgitation. AORTIC VALVE Trileaflet aortic valve. No aortic valve stenosis or regurgitation. TRICUSPID VALVE Structurally normal tricuspid valve. No tricuspid valve stenosis or regurgitation. PULMONARY VALVE The pulmonary valve is not well visualized. VESSELS The inferior vena cava is normal in size. PERICARDIUM There is a trivial to small pericardial effusion present. No echocardiographic evidence for tamponad e. Gadiel Snyder MD (Electronically Signed) Final Date:07 January 2017 13:15
--- NOTE | 2017-01-07 13:33 | OTSOAPIP ---
TIME SESSION COMPLETED: 10 AM RN PREPARING FOR PATIENT FOR BLOOD TRANSFUSION. WILL REATTEMPT TOMORROW. Therapist: Salma Tenroio OTR/L Signature on file
--- NOTE | 2017-01-07 15:09 | PD.ONC.PN ---
Subjective Subjective Remarks Patient extubated Reports that his breathing is mildly better Starting with physical therapy today Objective Data Date Time Temp Pulse Resp B/P (MAP) Pulse Ox O2 Delivery O2 Flow Rate FiO2 01/07/17 14:00 88 01/07/17 12:00 98.0 89 24 111/56 (74) 94 01/07/17 12:00 89 01/07/17 11:08 98.0 85 19 111/56 97 01/07/17 10:44 98.3 86 22 128/59 94 01/07/17 10:00 85 01/07/17 08:45 89 136/65 01/07/17 08:14 94 Nasal Cannula 4.00 01/07/17 08:00 98.7 89 26 126/60 (82) 96 01/07/17 08:00 85 01/07/17 08:00 95 Nasal Cannula 4.00 01/07/17 07:58 128/80 01/07/17 06:00 84 01/07/17 04:00 98.3 85 20 117/61 (79) 96 01/07/17 04:00 85 01/07/17 02:00 83 01/07/17 00:00 98.2 80 23 107/53 (71) 97 01/07/17 00:00 80 01/06/17 22:00 83 01/06/17 20:17 97 Nasal Cannula 4.00 01/06/17 20:00 81 01/06/17 20:00 98.2 81 22 126/60 (82) 98 01/06/17 20:00 98 Nasal Cannula 4.00 01/06/17 18:00 78 01/06/17 16:45 84 109/53 01/06/17 16:07 96 Nasal Cannula 4.00 01/06/17 16:00 97.6 98 14 145/66 (92) 95 01/06/17 16:00 96 Nasal Cannula 4 01/06/17 16:00 98 01/06/17 16:00 95 Nasal Cannula 4.00 01/07/17 01/07/17 01/07/17 06:59 14:59 22:59 Intake Total 463 ml 528 ml Output Total 2875 ml Balance -2412 ml 528 ml Result Diagram: 01/07/175 01/07/17314 Laboratory Results Laboratory Tests Test 01/06/17 15:40 8/23/17 03:15 Blood Gas Puncture Site RT RADIAL Blood Gas Patient Temperature 98.6 Blood Gas HCO3 29 mmol/L Blood Gas Base Excess 4.2 mmol/L Blood Gas Oxygen Saturation 92 % Arterial Blood pH 7.38 Arterial Blood Partial Pressure CO2 50 mmHg Arterial Blood Partial Pressure O2 75 mmHg Arterial Blood Oxygen Content 11.9 Vol % Arterial Blood Carboxyhemoglobin 1.9 % Arterial Blood Methemoglobin 0.7 % Blood Gas Hemoglobin 9.1 G/DL Blood Gas Ventilator Setting CPAP 5/5 Blood Gas Inspired Oxygen 35 % White Blood Count 8.0 TH/MM3 Red Blood Count 2.87 MIL/MM3 Hemoglobin 8.1 GM/DL Hematocrit 25.7 % Mean Corpuscular Volume 89.3 FL Mean Corpuscular Hemoglobin 28.2 PG Mean Corpuscular Hemoglobin Concent 31.6 % Red Cell Distribution Width 19.6 % Platelet Count 211 TH/MM3 Mean Platelet Volume 8.3 FL Neutrophils (%) (Auto) 84.0 % Lymphocytes (%) (Auto) 8.1 % Monocytes (%) (Auto) 6.6 % Eosinophils (%) (Auto) 0.4 % Basophils (%) (Auto) 0.9 % Neutrophils # (Auto) 6.8 TH/MM3 Lymphocytes # (Auto) 0.6 TH/MM3 Monocytes # (Auto) 0.5 TH/MM3 Eosinophils # (Auto) 0.0 TH/MM3 Basophils # (Auto) 0.1 TH/MM3 CBC Comment DIFF FINAL Differential Comment Blood Urea Nitrogen 12 MG/DL Creatinine 0.57 MG/DL Random Glucose 248 MG/DL Total Protein 5.7 GM/DL Albumin 1.8 GM/DL Calcium Level 7.6 MG/DL Magnesium Level 1.6 MG/DL Alkaline Phosphatase 77 U/L Aspartate Amino Transf (AST/SGOT) 14 U/L Alanine Aminotransferase (ALT/SGPT) 11 U/L Total Bilirubin 0.5 MG/DL Sodium Level 138 MEQ/L Potassium Level 3.5 MEQ/L Chloride Level 101 MEQ/L Carbon Dioxide Level 32.4 MEQ/L Anion Gap 5 MEQ/L Estimat Glomerular Filtration Rate 146 ML/MIN Culture Results Microbiology Date/Time Source Procedure Growth Status 01/06/17 12:30 Fluid Pleural Fluid Fungal Smear - Final NO FUNGAL ELEMENTS SEEN. Resulted 01/06/17 12:30 Fluid Pleural Fluid Fungal Culture Pending Resulted 01/06/17 12:30 Fluid Pleural Fluid Acid Fast Stain - Final NO ACID FAST BACILLI SEEN Resulted 01/06/17 12:30 Fluid Pleural Fluid Mycobacterial Culture Pending Resulted 01/06/17 12:30 Fluid Pleural Fluid Gram Stain - Final Resulted 01/06/17 12:30 Fluid Pleural Fluid Body Fluid Culture - Preliminary NO GROWTH IN 24 HOURS. Resulted Imaging Studies Last 24 hours Impressions Chest X-Ray 01/07/17 0600 Signed Impressions: Service Date/Time: Saturday, January 07, 2017 04:10 - CONCLUSION: 1. Cardiomegaly with mild edema pattern. Basal airspace disease slightly increased from January 06. Previous endotracheal tube has been removed. Kervin Krause MD Abdomen X-Ray 01/07/17 0000 Signed Impressions: Service Date/Time: Saturday, January 07, 2017 11:56 - CONCLUSION: Visualized portions of the lower chest demonstrate a presumed esophageal stent. Erik Simon MD Administered Medications Medications (Trade) Dose Ordered Sig/Geovanny Route PRN Reason Start Time Stop Time Status Last Admin Dose Admin Sodium Chloride (NS Flush) 2 ml UNSCH PRN IV FLUSH FLUSH AFTER USING IV ACCESS 11/30/16 02:45 12/24/16 09:59 Sodium Chloride (NS Flush) 2 ml BID IV FLUSH 11/30/16 09:00 01/06/17 09:02 Oxycodone HCl (Roxicodone) 5 mg Q4H PRN PO PAIN SCALE 3 TO 5 11/30/16 02:45 12/31/16 18:24 Senna/Docusate Sodium (Rere-Colace) 1 tab BID PO 11/30/16 09:00 01/07/17 08:43 Acetaminophen (Tylenol) 325 mg Q4H PRN PO PAIN SCALE 1 TO 2 11/30/16 13:45 12/13/16 17:13 Clopidogrel Bisulfate (Plavix) 75 mg DAILY PO 12/01/16 09:00 Future Hold 12/25/16 08:06 Ondansetron HCl (Zofran Inj) 4 mg Q4H PRN IV NAUSEA 11/30/16 13:45 12/24/16 22:41 Sodium Chloride (NS Flush) 5 ml Q21D IV FLUSH 11/30/16 18:00 12/21/16 17:19 Heparin Sodium (Porcine) (Heparin Central Flush) 500 units Q21D IV FLUSH 11/30/16 18:00 11/30/16 18:04 Acetaminophen (Tylenol 650 Mg/ 20 ml Liq) 650 mg Q6H PRN PO FEVER 12/01/16 17:30 12/02/16 01:07 Polyethylene Glycol (Miralax) 17 gm DAILY PO 12/04/16 09:00 01/07/17 08:43 Thiamine HCl (Vitamin B1) 100 mg DAILY PO 12/05/16 09:00 01/07/17 08:58 Multivitamins (Theragran) 1 tab DAILY PO 12/05/16 09:00 01/07/17 08:44 Folic Acid (Folate) 1 mg DAILY PO 12/05/16 09:00 Future Hold 12/25/16 08:07 Rifampin (Rifampin) 300 mg Q12HR PO 12/06/16 09:15 01/15/17 23:00 Future Hold 01/01/17 09:52 Lorazepam (Ativan Inj) 1 mg Q4H PRN IV PUSH ANXIETY AND/OR AGITATION 12/09/16 15:15 12/31/16 14:16 Atorvastatin Calcium (Lipitor) 40 mg HS PO 12/12/16 21:00 Future Hold 12/24/16 21:00 Sodium Chloride (NS Flush) See Protocol DAILY IV FLUSH 12/13/16 09:00 12/27/16 08:04 Heparin Sodium (Porcine) (Heparin Central Flush) See Protocol DAILY IV FLUSH 12/13/16 09:00 12/27/16 08:05 Sodium Chloride (NS Flush) UNSCH PRN IV FLUSH SEE PROTOCOL TABLE 12/12/16 17:00 12/19/16 01:59 Lorazepam (Ativan) 0.5 mg DAILY PRN PO ANXIETY 12/18/16 15:45 Future Hold 12/19/16 08:29 Diltiazem HCl (Cardizem) 90 mg Q6H PO 12/18/16 23:00 Future Hold 12/25/16 12:14 Oxycodone HCl (Roxicodone) 15 mg Q4H PRN PO PAIN 6-10 12/21/16 11:00 12/31/16 19:51 Digoxin (Lanoxin) 0.25 mg DAILY PO 12/22/16 09:00 Future Hold 12/25/16 08:06 Sucralfate (Carafate Liq) 1 gm ACHS PO 12/22/16 11:00 01/07/17 10:18 Metoprolol Tartrate (Lopressor Inj) 5 mg Q1HR PRN IV PUSH RAPID HEART RATE 12/22/16 09:45 12/30/16 10:37 Pantoprazole Sodium (Protonix Inj) 40 mg Q12H IV PUSH 12/22/16 10:00 01/07/17 09:30 Aspirin (Ecotrin Ec) 81 mg DAILY PO 12/23/16 09:00 Future Hold 12/25/16 08:06 Metoprolol Tartrate (Lopressor) 25 mg Q6HR PO 12/22/16 13:00 01/01/17 05:30 Magnesium Oxide (Mag-Ox) 800 mg UNSCH PRN PO For Magnesium 1.2 - 1.6 mg/dL 12/25/16 21:00 12/27/16 06:46 Potassium Chloride 100 ml @ 50 mls/hr Q2H PRN IV For Potassium 3.3 - 3.5 mEq/L 12/25/16 21:00 01/07/17 06:50 Potassium Chloride 100 ml @ 25 mls/hr UNSCH PRN IV For Potassium 3.3 - 3.5 mEq/L 12/25/16 21:00 01/04/17 06:32 Sodium Phosphate 30 mmol/Sodium Chloride 250 ml @ 42 mls/hr UNSCH PRN IV For Phosphorus < 2.5 mg/dL 12/25/16 21:00 12/30/16 06:49 Chlorhexidine Gluconate (Peridex 0.12% Liq) 15 ml BID@08,20 MT 12/26/16 08:00 01/07/17 08:00 Insulin Human Regular (NovoLIN R SUPPLEMENTAL SCALE) 1 Q6HR SQ 12/26/16 00:00 01/07/17 11:18 Albuterol/ Ipratropium (Duoneb Neb) 1 ampule Q2HR NEB PRN INH WHEEZING 12/25/16 21:00 01/02/17 19:29 Clopidogrel Bisulfate (Plavix) 75 mg DAILY PO 12/29/16 09:00 01/07/17 08:44 Aspirin (Ecotrin Ec) 162 mg DAILY PO 12/29/16 09:00 Future Hold 01/01/17 09:52 Prednisone (Deltasone) 5 mg DAILY PO 12/29/16 09:00 Future Hold 01/01/17 09:49 Levothyroxine Sodium (Synthroid) 50 mcg DAILY@06 PO 12/30/16 06:00 Future Hold 01/01/17 05:30 Chlorhexidine Gluconate (Peridex 0.12% Liq) 15 ml BID@08,20 MT 01/01/17 20:00 01/07/17 08:00 Propofol 100 ml @ 0 mls/hr TITRATE IV 01/01/17 10:45 01/06/17 13:24 Aspirin (Aspirin Supp) 300 mg DAILY RECTAL 01/03/17 09:00 01/07/17 08:44 Levothyroxine Sodium (Synthroid Inj) 25 mcg DAILY@06 IV PUSH 01/04/17 06:00 01/07/17 05:39 Rifampin 300 mg/ Sodium Chloride 100 ml @ 100 mls/hr Q12H IV 01/03/17 10:00 01/15/17 09:59 01/07/17 09:30 Methylprednisolone Sodium Succinate (SoluMEDROL INJ) 20 mg DAILY IV PUSH 01/03/17 09:00 01/07/17 08:43 Multivitamins 10 ml/Folic Acid 1 mg/Amino Acids/ Electrolytes/ Dextrose 2,010.2 ml @ 60 mls/hr Q24H IV-CENTRAL 01/03/17 20:00 01/06/17 20:38 Artificial Tears (Tears Naturale Opth Soln) 1 drop Q8HR EACH EYE 01/04/17 14:00 01/06/17 22:03 Albuterol/ Ipratropium (Duoneb Neb) 1 ampule Q6HR NEB NEB 01/06/17 16:00 01/07/17 08:08 Insulin Detemir (Levemir Inj) 30 units Q12HR SQ 01/06/17 21:00 01/07/17 09:00 Albumin Human (Albumin 25% Inj) 25 gm Q12H IV 01/06/17 11:00 01/08/17 10:59 01/07/17 10:18 Furosemide (Lasix Inj) 20 mg Q12HR IV PUSH 01/06/17 21:00 01/07/17 08:42 Amiodarone HCl (Cordarone) 200 mg Q12HR PO 01/07/17 10:00 01/07/17 10:18 Objective Remarks GENERAL: Older male resting in bed with visitors at bedside SKIN: Warm and dry. [place] appearance HEAD: Normocephalic. EYES: No injection or drainage. NECK: Supple, trachea midline. CARDIOVASCULAR: + S1/S2, pericardial rub and murmur. RESPIRATORY: Scattered rhonchi anteriorly. On 4 L nasal cannula GASTROINTESTINAL: Abdomen nondistended. EXTREMITIES: No cyanosis. Generalized edema NEUROLOGICAL: A and O 3. Normal speech. Moving all extremities. Assessment/Plan Problem List: (1) Esophageal adenocarcinoma ICD Codes: C15.9 - Malignant neoplasm of esophagus, unspecified Status: Acute Plan: --EUS with esophageal stent placement on 12/25 --++hemoptysis --we plan to give weekly Erbitux and XRT outpatient. --patient had OP EGD with biopsy, pathology showed adenocarcinoma. --EGD/Colonoscopy, 11/20/16--showed long stricture in the mid esophagus and distal esophagus, multiple biopsies were performed Pathology revealed invasive adenocarcinoma- distal esophagus --XRT simulation done 12/19. (2) SCC (squamous cell carcinoma) ICD Codes: C44.92 - Squamous cell carcinoma of skin, unspecified Status: Acute Plan: --has a head and neck, lung malignancy which was locally advanced. --received definitive treatment with surgery. Post surgery he had positive margins and some poor risk features and he was about to get concurrent chemotherapy and radiation and adjuvantly to achieve local control of the disease --PET scan to stage his disease prior to treatment showed an esophageal mass (3) Normocytic anemia ICD Codes: D64.9 - Anemia, unspecified Status: Acute Plan: --hgb stable --transfuse packed red blood cells if his hemoglobin drops below 8.5 --s/p iron infusion (4) Afib ICD Codes: I48.91 - Unspecified atrial fibrillation Status: Acute Plan: --cardiology following. --s/p chest tube placement on 01/06. --on Plavix (on hold) --on ASA (5) Sepsis ICD Codes: A41.9 - Sepsis, unspecified organism Status: Resolved Plan: --BC 01.02: pending BC, 7.24 no growth BC, 12/07 no growth --BC, 12/05 +, S. Aureus --had removal of port, + S. aureus --on Cefepime (6) NSTEMI (non-ST elevated myocardial infarction) ICD Codes: I21.4 - Non-ST elevation (NSTEMI) myocardial infarction Status: Acute Plan: --had elevated troponin and ST-segment changes consistent with acute IA. 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 Also with a new diagnosis of early stage gastric cancer Plan 1. Transfuse 1 unit PRBC's today for anemia in light of cardiovascular issues 2. Over 2000ml's drained from chest tubes. 3. monitor CBC 4. Plan to attempt XRT with chemo once acute issues are resolved. Attending Statement The exam, history, and the medical decision-making described in the above note were completed with the assistance of the mid-level provider. I reviewed and agree with the findings presented. I attest that I had a [id number] encounter with the patient on the same day, and personally performed and documented my assessment and findings in the medical record overnight events reviewed terra villafana Problem Qualifiers (1) Afib: (2) Sepsis: Shey Flores Jan 07, 2017 15:09 Brant Bell MD Jan 08, 2017 00:27
--- NOTE | 2017-01-07 15:48 | HHI.IDPN ---
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 It was reportedly malignant as well. He presented to the hospital complaining of generalized weakness, abdominal pain and progressive swallowing difficulty over the last 3 weeks. Evaluation in the emergency room revealed abnormal EKG, and he underwent cardiac catheterization. He had non-ST CT, and had revascularization with stent placement of his left circumflex artery. Patient is spiked to 103, and there were 2 blood cultures done yesterday that are now reported as growing staph aureus. Had an infected port that has benson removed. Had a very prolonged bacteremia Notes reviewed D/W RN Temps ok Extubated yesterday Doing well on nasal O2 Off pressors Aftab CT in place, has a lot of output Repeat echo not much pericardial effusion Drain removed Pericardial fluid cytology pending Passed swallowing evaluation He is up in chair Very weak Antibiotics Cefepime Rifampin Lines Port - removed 12/02 PICC Past Medical History Reviewed Allergies: Coded Allergies: penicillin G (Unverified Allergy, Mild, Hives, 12/30/16) Objective . Vital Signs Date Time Temp Pulse Resp B/P (MAP) Pulse Ox O2 Delivery O2 Flow Rate FiO2 01/07/17 14:00 88 01/07/17 12:00 98.0 89 24 111/56 (74) 94 01/07/17 12:00 89 01/07/17 11:08 98.0 85 19 111/56 97 01/07/17 10:44 98.3 86 22 128/59 94 01/07/17 10:00 85 01/07/17 08:45 89 136/65 01/07/17 08:14 94 Nasal Cannula 4.00 01/07/17 08:00 98.7 89 26 126/60 (82) 96 01/07/17 08:00 85 01/07/17 08:00 95 Nasal Cannula 4.00 01/07/17 07:58 128/80 01/07/17 06:00 84 01/07/17 04:00 98.3 85 20 117/61 (79) 96 01/07/17 04:00 85 01/07/17 02:00 83 01/07/17 00:00 98.2 80 23 107/53 (71) 97 01/07/17 00:00 80 01/06/17 22:00 83 01/06/17 20:17 97 Nasal Cannula 4.00 01/06/17 20:00 81 01/06/17 20:00 98.2 81 22 126/60 (82) 98 01/06/17 20:00 98 Nasal Cannula 4.00 01/06/17 18:00 78 01/06/17 16:45 84 109/53 01/06/17 16:07 96 Nasal Cannula 4.00 01/06/17 16:00 97.6 98 14 145/66 (92) 95 01/06/17 16:00 96 Nasal Cannula 4 01/06/17 16:00 98 01/06/17 16:00 95 Nasal Cannula 4.00 01/07/17 01/07/17 01/08/17 14:59 22:59 06:59 Intake Total 528 ml Balance 528 ml IV Total 528 ml . Laboratory Tests Test 01/06/17 04:04 01/07/17 03:15 White Blood Count 8.1 TH/MM3 8.0 TH/MM3 Red Blood Count 2.88 MIL/MM3 2.87 MIL/MM3 Hemoglobin 8.2 GM/DL 8.1 GM/DL Hematocrit 25.5 % 25.7 % Mean Corpuscular Volume 88.3 FL 89.3 FL Mean Corpuscular Hemoglobin 28.4 PG 28.2 PG Mean Corpuscular Hemoglobin Concent 32.2 % 31.6 % Red Cell Distribution Width 19.1 % 19.6 % Platelet Count 211 TH/MM3 211 TH/MM3 Mean Platelet Volume 8.0 FL 8.3 FL Neutrophils (%) (Auto) 81.3 % 84.0 % Lymphocytes (%) (Auto) 10.3 % 8.1 % Monocytes (%) (Auto) 6.3 % 6.6 % Eosinophils (%) (Auto) 0.7 % 0.4 % Basophils (%) (Auto) 1.4 % 0.9 % Neutrophils # (Auto) 6.6 TH/MM3 6.8 TH/MM3 Lymphocytes # (Auto) 0.8 TH/MM3 0.6 TH/MM3 Monocytes # (Auto) 0.5 TH/MM3 0.5 TH/MM3 Eosinophils # (Auto) 0.1 TH/MM3 0.0 TH/MM3 Basophils # (Auto) 0.1 TH/MM3 0.1 TH/MM3 CBC Comment DIFF FINAL DIFF FINAL Differential Comment Laboratory Tests Test 01/06/17 04:04 01/07/17 03:15 Blood Urea Nitrogen 13 MG/DL 12 MG/DL Creatinine 0.54 MG/DL 0.57 MG/DL Random Glucose 273 MG/DL 248 MG/DL Total Protein 5.3 GM/DL 5.7 GM/DL Albumin 1.1 GM/DL 1.8 GM/DL Calcium Level 7.4 MG/DL 7.6 MG/DL Magnesium Level 1.7 MG/DL 1.6 MG/DL Alkaline Phosphatase 84 U/L 77 U/L Aspartate Amino Transf (AST/SGOT) 19 U/L 14 U/L Alanine Aminotransferase (ALT/SGPT) 15 U/L 11 U/L Total Bilirubin 0.3 MG/DL 0.5 MG/DL Sodium Level 135 MEQ/L 138 MEQ/L Potassium Level 3.8 MEQ/L 3.5 MEQ/L Chloride Level 97 MEQ/L 101 MEQ/L Carbon Dioxide Level 33.1 MEQ/L 32.4 MEQ/L Anion Gap 5 MEQ/L 5 MEQ/L Estimat Glomerular Filtration Rate 156 ML/MIN 146 ML/MIN Protein Corrected Calcium 8.4 MG/DL Microbiology Date/Time Source Procedure Growth Status 01/06/17 12:30 Fluid Pleural Fluid Fungal Smear - Final NO FUNGAL ELEMENTS SEEN. Resulted 01/06/17 12:30 Fluid Pleural Fluid Fungal Culture Pending Resulted 01/06/17 12:30 Fluid Pleural Fluid Acid Fast Stain - Final NO ACID FAST BACILLI SEEN Resulted 01/06/17 12:30 Fluid Pleural Fluid Mycobacterial Culture Pending Resulted 01/06/17 12:30 Fluid Pleural Fluid Gram Stain - Final Resulted 01/06/17 12:30 Fluid Pleural Fluid Body Fluid Culture - Preliminary NO GROWTH IN 24 HOURS. Resulted Imaging Chest X-Ray 01/07/17 0600 Signed Impressions: Service Date/Time: Saturday, January 07, 2017 04:10 - CONCLUSION: 1. Cardiomegaly with mild edema pattern. Basal airspace disease slightly increased from January 06. Previous endotracheal tube has been removed. Kervin Krause MD Abdomen X-Ray 01/07/17 0000 Signed Impressions: Service Date/Time: Saturday, January 07, 2017 11:56 - CONCLUSION: Visualized portions of the lower chest demonstrate a presumed esophageal stent. Erik Simon MD Chest X-Ray 01/06/17599 Signed Impressions: Service Date/Time: Friday, January 06, 2017 05:09 - CONCLUSION: 1. Support apparatus unchanged. Stable bilateral airspace disease and effusions. Kervin Krause MD ADDENDUM: Faintly visualized overlying the spine in the mid to distal esophageal region is a esophageal stent extending approximately 13 cm. The distal tip at the expected location of the esophagogastric junction assuming no surgery. Erik Simon MD Chest X-Ray 01/06/17 0000 Signed Impressions: Service Date/Time: Friday, January 06, 2017 12:38 - CONCLUSION: 1. Right thoracostomy tube within the inferior hemithorax. No effusion. 2. Small caliber catheter overlying the inferior left chest. I am unsure if this is within the hemithorax. If it is within the hemithorax it is barely within it. 3. Left lower lobe infiltrate. 4. Cardiomegaly. Kulwant Cowart Jr., MD Chest X-Ray 01/05/17599 Signed Impressions: Service Date/Time: Thursday, January 05, 2017 04:09 - CONCLUSION: 1. Support apparatus as above. Bilateral mostly basilar airspace disease similar in appearance to January 04. Kervin Krause MD Abdomen X-Ray 01/05/17599 Signed Impressions: Service Date/Time: Thursday, January 05, 2017 04:11 - CONCLUSION: 1. Residual contrast in large bowel. No evidence for obstruction. Kervin Krause MD Chest X-Ray 01/01/17 0000 Signed Impressions: Service Date/Time: December 12:33 - CONCLUSION: 1. Improving diffuse parenchymal infiltrate. 2. Esophageal stent and PICC in good position. 3. There is a pericardial drain present. Benjamin Pollock MD Chest X-Ray 12/31/16599 Signed Impressions: Service Date/Time: Saturday, December 31, 2016 03:30 - CONCLUSION: Increasing consolidative infiltrates in the right lower lung, persistence patchy infiltrates in the right upper lung and persistent dense consolidation of the left lower lung. Kulwant Gupta MD CT Angiography 12/31/16 0000 Signed Impressions: Service Date/Time: Saturday, December 31, 2016 01:00 - CONCLUSION: 1. Study is negative for pulmonary embolism. 2. Pericardial effusion, diffuse patchy consolidation in both lungs, collapse left lower lobe, bilateral pleural effusions, esophageal stent, similar to yesterday's CT thorax. Kulwant Gupta MD Last 48 hours Impressions Chest X-Ray 12/26/16 0600 Signed Impressions: Service Date/Time: Monday, December 26, 2016 03:45 - CONCLUSION: Improving pulmonary edema and effusions, now mild/small. Unchanged moderate cardiomegaly. Washington Beasley MD GI Procedure 12/25/16 0000 Signed Impressions: Service Date/Time: December 19:33 - CONCLUSION: Spot film as above. Everett Pollock MD FACR Chest X-Ray 12/25/16 0000 Signed Impressions: Service Date/Time: December 20:28 - CONCLUSION: ET in good position; increasing congestive failure. Everett Pollock MD FACR Chest X-Ray 12/05/16 0600 Signed Impressions: Service Date/Time: Monday, December 05, 2016 03:30 - CONCLUSION: 1. Cardiomegaly and findings of vascular congestion without overt failure. There has been no significant change when compared to the prior exam. Bobby Matias MD Head CT 12/01/16 0000 Signed Impressions: Service Date/Time: Thursday, December 01, 2016 07:59 - CONCLUSION: 1. Questionable area of low attenuation left temporal lobe could be artifact versus less likely infarct. MRI may be warranted based on clinical history. 2. No midline shift or mass effect. 3. No intraparenchymal hemorrhage. Jagjit Tapia MD Brain MRI 12/01/16 0000 Signed Impressions: Service Date/Time: Thursday, December 01, 2016 12:07 - CONCLUSION: Normal examination. Barrett Rodriguez MD Abdomen X-Ray 12/01/16 0000 Signed Impressions: Service Date/Time: Thursday, December 01, 2016 16:48 - CONCLUSION: No evidence of obstruction. Feeding tube tip in the distal stomach. Barrett Rodriguez MD Abdomen/Pelvis CT 11/29/16 1115 Signed Impressions: Service Date/Time: Wednesday, November 30, 2016 01:35 - CONCLUSION: 1. Markedly abnormal appearance of the distal esophagus consistent with the history of esophageal carcinoma. 2. Atherosclerotic calcifications of the aorta and iliac vessels. 3. Cirrhotic appearance to the liver with a mildly nodular contour present. Erik Simon MD CT Angiography 11/29/16 2348 Signed Impressions: Service Date/Time: Wednesday, November 30, 2016 01:35 - CONCLUSION: 1. No evidence for pulmonary embolism or pneumonia. 2. Abnormal appearance of the esophagus with and soft tissue consistent with the history of carcinoma. Erik Simon MD Chest X-Ray 12/03/16 0600 Signed Impressions: Service Date/Time: Saturday, December 03, 2016 04:43 - CONCLUSION: Increasing consolidation in the left lower lung. Bilateral interstitial changes. Niko Wilcox MD Chest X-Ray 12/03/16 0000 Signed Impressions: Service Date/Time: Saturday, December 03, 2016 07:48 - CONCLUSION: 1. Persistent left retrocardiac density and slight interstitial prominence. Jagjit Tapia MD Chest X-Ray 12/02/16 0000 Signed Impressions: Service Date/Time: Friday, December 02, 2016 15:55 - CONCLUSION: Normal examination with endotracheal tube and central lines in good position. Barrett Rodriguez MD Chest X-Ray 12/02/16 0000 Signed Impressions: Service Date/Time: Friday, December 02, 2016 08:24 - CONCLUSION: Mild perihilar vascular congestion. Endotracheal tube is in good position Barrett Rodriguez MD Chest X-Ray 12/02/16 0000 Signed Impressions: Service Date/Time: Friday, December 02, 2016 06:53 - CONCLUSION: Underinflated examination with atelectasis at the lung bases. Given the technique, no acute abnormality or significant interval change is appreciated. Washington Marroquin MD Physical Exam GENERAL: Up in chair, weak, not in distress SKIN: Warm and dry. No generalized rash EYES: . No scleral icterus. No injection or drainage. EARS, NOSE AND THROAT: Nose without bleeding or purulent nasal discharge. NECK: Trachea midline. Supple and not tender, no meningeal signs CARDIOVASCULAR: Irregular rate and rhythm, same harsh systolic sound. HR 129. RESPIRATORY: Aftab CT in place, decreased BS at bases ABDOMEN: Soft, not distended, not tender. Bowel sounds present and normoactive. No organomegaly. EXTREMITIES: No clubbing, cyanosis. Has pitting BLE edema. No calf tenderness. Well perfused and warm. NEUROLOGICAL: non-focal PSYCHIATRIC: calm and cooperative LINE: Dry dressing on previous port site, healing. PICC site ok : Saxena in place BACK: Has decubitus in sacrum Assessment & Plan Remarks IMPRESSION Respiratory failure - has ?PNA, C/S with Pseudomonas - CHF - S/P RX GNR PNA - extubated 01/06 Recurrent shock MSSA sepsis due to port infection, removed - S/P removal port 12/02 - last (+) BC 12/05 Recurrent squamous cell CA Esophageal CA, S/P EUS and stent placement Lethargy and SOB due to sepsis, resolved - has acidosis, resolved Renal insufficiency, due to sepsis and shock, better Atrial fib, rate still goes up and down New murmur - last echo with new "pseudo" outflow tract obstruction, ?this is source ?Seizure RECOMMENDATION Continue Rifampin, for synergy vs MSSA - follow LFT Change Cefepime to Levaquin to cover PSAE Restart Cefazolin to complete RX for MSSA - end date Jan 15 Monitor progress D/W Dr Delarosa ([facility]) D/W Carola Dick MD Jan 07, 2017 15:48
--- NOTE | 2017-01-07 16:57 | PD.WCN.NOT ---
Wound Consult Description: Follow up of mixed etiology wounds to L buttock and coccyx areas Communicated with: ROMAN Cheung [facility] Recommendation: Please continue current recommendations.Cleanse buttock and gluteal cleft area gently with soap and water, careful not to remove all of the skin protectant. Leave open to air and apply Calazime BID and PRN for gluteal cleft and bilateral buttock wounds Please continue to turn patient every 2 hours or PRN for comfort. Additional Information: Patient seen on for follow up of coccyx and left buttock wounds.Patient turned to L side with the assistance of Skye OWENS [facility] and P.T.Removed adhesive foam dressing in place to reveal wound. There is now one wound with today's assessment.Wound presents with mixed etiology of moisture, pressure, and friction.Wound is noted to sacral, coccyx, and bilateral buttocks all measured as one. Wound measures 10cm x 5cm x eschar. Wound bed is noted with ~ 30% partial thickness skin loss close to wound margins, and ~30% black eschar, ~20% red non granulation tissue and ~30% deep purple non blanchable skin that is macerated Wound margins are poorly defined. Wound has scant sero-sanguinous drainage that is without odor. Patient has had multiple episodes of incontinence of stool and urine Per RN. Do not want dressing on wound for now due to multiple episodes of incontinence. Will reassess patient next week. Patient is on specialty bed and being turned every 45 minutes per RN Sarah Friedman [facility] Jan 07, 2017 16:57
[2017-01-07] MEDS ORDERED: LEVOFLOXACIN 750 MG TAB PO SCH (17:00)
[2017-01-07] MEDS ORDERED: CEFEPIME INJ 2,000 MG in SODIUM CHLORIDE 0.9% INJ 100 ML IV SCH (18:00)
[2017-01-07] MEDS: LEVOFLOXACIN 750 MG TAB PO SCH (18:31)
[2017-01-07] MEDS: ceFAZolin 2 GM PREMIX 50 ML IV SCH (18:31)
[2017-01-07] MEDS: CLINIMIX E 4.25/25 2000 mL- >42 mls/hr IV-CENTRAL SCH ×3 (20:38)
[2017-01-08] VITALS (13 sets, daily range): BP systolic 116–129; BP diastolic 56–63; PULSE 82–95; RESP 20–29; TEMP 98.3–99; O2SAT 92–97
[2017-01-08] MEDS: INSULIN NovoLIN REGULAR SUPPLEMENTAL SCALE SQ SCH ×4 (00:04→18:08)
[2017-01-08] MEDS: ceFAZolin 2 GM PREMIX 50 ML IV SCH ×3 (00:05→17:02)
[2017-01-08] MEDS: POTASSIUM CHLOR 20 MEQ PREMIX 100 ML IV PRN ×2 (01:31→04:35)
[2017-01-08] MEDS: RESP: ALBUTEROL 2.5 MG/IPRATROPIUM 0.5 MG NEB (SCH) NEB ×4 (03:21→20:38)
[2017-01-08] MEDS: ARTIFICIAL TEARS OPTH SOLN 15 ML BTL EACH EYE SCH ×3 (06:00→21:13)
[2017-01-08] MEDS: SUCRALFATE 1 GM/10 ML CUP PO SCH ×4 (06:25→19:49)
[2017-01-08] MEDS: METOPROLOL TARTRATE 25 MG TAB PO SCH ×4 (06:25→17:02)
[2017-01-08] MEDS: LEVOTHYROXINE SODIUM 100 MCG VIAL IV PUSH SCH (06:26)
[2017-01-08] MEDS: CHLORHEXIDINE 0.12% (ORAL KIT) 15 ML CUP MT SCH ×4 (08:00→19:50)
[2017-01-08] MEDS: DOCUSATE SODIUM 50 MG/SENNA 8.6 MG TAB PO SCH ×2 (09:00→19:49)
[2017-01-08] MEDS: SODIUM CHLORIDE 0.9% FLUSH 10 ML FLUSH IV FLUSH SCH ×3 (09:00→19:49)
[2017-01-08] MEDS: POLYETHYLENE GLYCOL 17 GM PKG PO SCH (09:00)
[2017-01-08] MEDS: FUROSEMIDE 20 MG/2 ML VIAL IV PUSH SCH ×2 (10:25→19:49)
[2017-01-08] MEDS: methylPREDNISolone SOD SUCC 40 MG/1 ML VIAL IV PUSH SCH (10:26)
[2017-01-08] MEDS: PANTOPRAZOLE SODIUM 40 MG VIAL IV PUSH SCH ×2 (10:29→21:13)
[2017-01-08] MEDS: THIAMINE HCL 100 MG TAB PO SCH (10:29)
[2017-01-08] MEDS: AMIODARONE 200 MG TAB PO SCH ×2 (10:29→19:50)
[2017-01-08] MEDS: MULTIVITAMIN TAB PO SCH (10:29)
[2017-01-08] MEDS: RIFAMPIN INJ 300 MG in SODIUM CHLORIDE 0.9% INJ 100 ML IV SCH ×2 (10:30→21:12)
[2017-01-08] MEDS: CLOPIDOGREL 75 MG TAB PO SCH (10:30)
[2017-01-08] MEDS: INSULIN DETEMIR 100 UNITS/ML VIAL SQ SCH ×2 (10:31→19:51)
[2017-01-08] MEDS: ASPIRIN 300 MG SUPP RECTAL SCH (10:49)
--- NOTE | 2017-01-08 13:09 | HHI.IDPN ---
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 It was reportedly malignant as well. He presented to the hospital complaining of generalized weakness, abdominal pain and progressive swallowing difficulty over the last 3 weeks. Evaluation in the emergency room revealed abnormal EKG, and he underwent cardiac catheterization. He had non-ST VT, and had revascularization with stent placement of his left circumflex artery. Patient is spiked to 103, and there were 2 blood cultures done yesterday that are now reported as growing staph aureus. Had an infected port that has benson removed. Had a very prolonged bacteremia Notes reviewed D/W RN Temps ok Doing well post extubation Sat up today for 1.5 hours Tired On nasal O2 Has good UO 2 CT putting out a lot, R more than L Pericardial fluid cytology pending Passed swallowing evaluation Still very weak Antibiotics Levaquin Ancef/Rifampin Lines Port - removed 12/02 PICC Past Medical History Reviewed Allergies: Coded Allergies: penicillin G (Unverified Allergy, Mild, Hives, 12/30/16) Objective . Vital Signs Date Time Temp Pulse Resp B/P (MAP) Pulse Ox O2 Delivery O2 Flow Rate FiO2 01/08/17 09:33 93 Nasal Cannula 3.00 01/08/17 06:00 91 01/08/17 04:00 95 01/08/17 04:00 98.4 94 24 127/58 (81) 95 01/08/17 02:00 88 01/08/17 00:00 87 01/08/17 00:00 98.3 88 20 126/60 (82) 95 01/07/17 22:00 86 01/07/17 20:40 98 Nasal Cannula 3.00 01/07/17 20:00 88 01/07/17 20:00 97 Nasal Cannula 3.00 01/07/17 20:00 98.7 84 25 119/56 (77) 98 01/07/17 18:00 89 01/07/17 16:00 85 01/07/17 16:00 98.7 85 24 122/60 (80) 98 01/07/17 14:00 88 . Laboratory Tests Test 01/07/17 03:15 White Blood Count 8.0 TH/MM3 Red Blood Count 2.87 MIL/MM3 Hemoglobin 8.1 GM/DL Hematocrit 25.7 % Mean Corpuscular Volume 89.3 FL Mean Corpuscular Hemoglobin 28.2 PG Mean Corpuscular Hemoglobin Concent 31.6 % Red Cell Distribution Width 19.6 % Platelet Count 211 TH/MM3 Mean Platelet Volume 8.3 FL Neutrophils (%) (Auto) 84.0 % Lymphocytes (%) (Auto) 8.1 % Monocytes (%) (Auto) 6.6 % Eosinophils (%) (Auto) 0.4 % Basophils (%) (Auto) 0.9 % Neutrophils # (Auto) 6.8 TH/MM3 Lymphocytes # (Auto) 0.6 TH/MM3 Monocytes # (Auto) 0.5 TH/MM3 Eosinophils # (Auto) 0.0 TH/MM3 Basophils # (Auto) 0.1 TH/MM3 CBC Comment DIFF FINAL Differential Comment Laboratory Tests Test 01/07/17 03:15 01/07/17 23:45 01/08/17 12:45 Blood Urea Nitrogen 12 MG/DL Creatinine 0.57 MG/DL Random Glucose 248 MG/DL Total Protein 5.7 GM/DL Albumin 1.8 GM/DL Calcium Level 7.6 MG/DL Magnesium Level 1.6 MG/DL Alkaline Phosphatase 77 U/L Aspartate Amino Transf (AST/SGOT) 14 U/L Alanine Aminotransferase (ALT/SGPT) 11 U/L Total Bilirubin 0.5 MG/DL Sodium Level 138 MEQ/L Potassium Level 3.5 MEQ/L 3.4 MEQ/L Chloride Level 101 MEQ/L Carbon Dioxide Level 32.4 MEQ/L Anion Gap 5 MEQ/L Estimat Glomerular Filtration Rate 146 ML/MIN Microbiology Date/Time Source Procedure Growth Status 01/06/17 12:30 Fluid Pleural Fluid Fungal Smear - Final NO FUNGAL ELEMENTS SEEN. Resulted 01/06/17 12:30 Fluid Pleural Fluid Fungal Culture Pending Resulted 01/06/17 12:30 Fluid Pleural Fluid Acid Fast Stain - Final NO ACID FAST BACILLI SEEN Resulted 01/06/17 12:30 Fluid Pleural Fluid Mycobacterial Culture Pending Resulted 01/06/17 12:30 Fluid Pleural Fluid Gram Stain - Final Resulted 01/06/17 12:30 Fluid Pleural Fluid Body Fluid Culture - Preliminary NO GROWTH IN 48 HOURS. Resulted Imaging Chest X-Ray 8/23/17 0600 Signed Impressions: Service Date/Time: Saturday, January 07, 2017 04:10 - CONCLUSION: 1. Cardiomegaly with mild edema pattern. Basal airspace disease slightly increased from January 06. Previous endotracheal tube has been removed. Kervin Krause MD Abdomen X-Ray 01/07/17 0000 Signed Impressions: Service Date/Time: Saturday, January 07, 2017 11:56 - CONCLUSION: Visualized portions of the lower chest demonstrate a presumed esophageal stent. Erik Simon MD Chest X-Ray 01/06/17599 Signed Impressions: Service Date/Time: Friday, January 06, 2017 05:09 - CONCLUSION: 1. Support apparatus unchanged. Stable bilateral airspace disease and effusions. Kervin Krause MD ADDENDUM: Faintly visualized overlying the spine in the mid to distal esophageal region is a esophageal stent extending approximately 13 cm. The distal tip at the expected location of the esophagogastric junction assuming no surgery. Erik Simon MD Chest X-Ray 01/06/17 Signed Impressions: Service Date/Time: Friday, January 06, 2017 12:38 - CONCLUSION: 1. Right thoracostomy tube within the inferior hemithorax. No effusion. 2. Small caliber catheter overlying the inferior left chest. I am unsure if this is within the hemithorax. If it is within the hemithorax it is barely within it. 3. Left lower lobe infiltrate. 4. Cardiomegaly. Kulwant Cowart Jr., MD Chest X-Ray 01/05/17599 Signed Impressions: Service Date/Time: Thursday, January 05, 2017 04:09 - CONCLUSION: 1. Support apparatus as above. Bilateral mostly basilar airspace disease similar in appearance to January 04. Kervin Krause MD Abdomen X-Ray 01/05/17599 Signed Impressions: Service Date/Time: Thursday, January 05, 2017 04:11 - CONCLUSION: 1. Residual contrast in large bowel. No evidence for obstruction. Kervin Krause MD Chest X-Ray 01/01/17 0000 Signed Impressions: Service Date/Time: December 12:33 - CONCLUSION: 1. Improving diffuse parenchymal infiltrate. 2. Esophageal stent and PICC in good position. 3. There is a pericardial drain present. Benjamin Pollock MD Chest X-Ray 12/31/16 0600 Signed Impressions: Service Date/Time: Saturday, December 31, 2016 03:30 - CONCLUSION: Increasing consolidative infiltrates in the right lower lung, persistence patchy infiltrates in the right upper lung and persistent dense consolidation of the left lower lung. Kulwant Gupta MD CT Angiography 12/31/16 0000 Signed Impressions: Service Date/Time: Saturday, December 31, 2016 01:00 - CONCLUSION: 1. Study is negative for pulmonary embolism. 2. Pericardial effusion, diffuse patchy consolidation in both lungs, collapse left lower lobe, bilateral pleural effusions, esophageal stent, similar to yesterday's CT thorax. Kulwant Gupta MD Last 48 hours Impressions Chest X-Ray 12/26/16 0600 Signed Impressions: Service Date/Time: Monday, December 26, 2016 03:45 - CONCLUSION: Improving pulmonary edema and effusions, now mild/small. Unchanged moderate cardiomegaly. Washington Beasley MD GI Procedure 12/25/16 0000 Signed Impressions: Service Date/Time: December 19:33 - CONCLUSION: Spot film as above. Everett Pollock MD FACR Chest X-Ray 12/25/16 0000 Signed Impressions: Service Date/Time: December 20:28 - CONCLUSION: ET in good position; increasing congestive failure. Everett Pollock MD FACR Chest X-Ray 12/05/16 0600 Signed Impressions: Service Date/Time: Monday, December 05, 2016 03:30 - CONCLUSION: 1. Cardiomegaly and findings of vascular congestion without overt failure. There has been no significant change when compared to the prior exam. Bobby Matias MD Head CT 12/01/16 0000 Signed Impressions: Service Date/Time: Thursday, December 01, 2016 07:59 - CONCLUSION: 1. Questionable area of low attenuation left temporal lobe could be artifact versus less likely infarct. MRI may be warranted based on clinical history. 2. No midline shift or mass effect. 3. No intraparenchymal hemorrhage. Jagjit Tapia MD Brain MRI 12/01/16 0000 Signed Impressions: Service Date/Time: Thursday, December 01, 2016 12:07 - CONCLUSION: Normal examination. Barrett Rodriguez MD Abdomen X-Ray 12/01/16 0000 Signed Impressions: Service Date/Time: Thursday, December 01, 2016 16:48 - CONCLUSION: No evidence of obstruction. Feeding tube tip in the distal stomach. Barrett Rodriguez MD Abdomen/Pelvis CT 11/29/16 2356 Signed Impressions: Service Date/Time: Wednesday, November 30, 2016 01:35 - CONCLUSION: 1. Markedly abnormal appearance of the distal esophagus consistent with the history of esophageal carcinoma. 2. Atherosclerotic calcifications of the aorta and iliac vessels. 3. Cirrhotic appearance to the liver with a mildly nodular contour present. Erik Simon MD CT Angiography 11/29/16 2348 Signed Impressions: Service Date/Time: Wednesday, November 30, 2016 01:35 - CONCLUSION: 1. No evidence for pulmonary embolism or pneumonia. 2. Abnormal appearance of the esophagus with and soft tissue consistent with the history of carcinoma. Erik Simon MD Chest X-Ray 12/03/16 0600 Signed Impressions: Service Date/Time: Saturday, December 03, 2016 04:43 - CONCLUSION: Increasing consolidation in the left lower lung. Bilateral interstitial changes. Niko Wilcox MD Chest X-Ray 12/03/16 0000 Signed Impressions: Service Date/Time: Saturday, December 03, 2016 07:48 - CONCLUSION: 1. Persistent left retrocardiac density and slight interstitial prominence. Jagjit Tapia MD Chest X-Ray 12/02/16 0000 Signed Impressions: Service Date/Time: Friday, December 02, 2016 15:55 - CONCLUSION: Normal examination with endotracheal tube and central lines in good position. Barrett Rodriguez MD Chest X-Ray 12/02/16 0000 Signed Impressions: Service Date/Time: Friday, December 02, 2016 08:24 - CONCLUSION: Mild perihilar vascular congestion. Endotracheal tube is in good position Barrett Rodriguez MD Chest X-Ray 12/02/16 0000 Signed Impressions: Service Date/Time: Friday, December 02, 2016 06:53 - CONCLUSION: Underinflated examination with atelectasis at the lung bases. Given the technique, no acute abnormality or significant interval change is appreciated. Washington Marroquin MD Physical Exam GENERAL: weak, not in distress. Looks better compared to yesterday SKIN: Warm and dry. No generalized rash EYES: . No scleral icterus. No injection or drainage. EARS, NOSE AND THROAT: Nose without bleeding or purulent nasal discharge. NECK: Trachea midline. Supple and not tender, no meningeal signs CARDIOVASCULAR: Regular rate and rhythm, same harsh systolic sound/rub.. RESPIRATORY: [place] CT in place, decreased BS at bases ABDOMEN: Soft, not distended, not tender. Bowel sounds present and normoactive. No organomegaly. EXTREMITIES: No clubbing, cyanosis. Has pitting BLE edema. No calf tenderness. Well perfused and warm. NEUROLOGICAL: non-focal PSYCHIATRIC: calm and cooperative LINE: Dry dressing on previous port site, healing. PICC site ok : Saxena in place BACK: Has decubitus in sacrum Assessment & Plan Remarks IMPRESSION Respiratory failure - has ?PNA, C/S with Pseudomonas - CHF - S/P RX GNR PNA - extubated 01/06 Recurrent shock MSSA sepsis due to port infection, removed - S/P removal port 12/02 - last (+) BC 12/05 Recurrent squamous cell CA Esophageal CA, S/P EUS and stent placement Lethargy and SOB due to sepsis, resolved - has acidosis, resolved Renal insufficiency, due to sepsis and shock, better Atrial fib, rate still goes up and down New murmur - last echo with new "pseudo" outflow tract obstruction, ?this is source ?Seizure RECOMMENDATION Continue Rifampin, for synergy vs MSSA - follow LFT Continue Levaquin to cover PSAE - end date ordered in [facility] Restart Cefazolin to complete RX for MSSA - end date Jan 15 Monitor progress D/W RN Dr Thea Sauceda available if needed 01/09-01/11 Carola Nassar MD Jan 08, 2017 13:09
[2017-01-08] MEDS ORDERED: PROPOFOL 1000 MG/100 ML INJ 100 ML IV SCH (14:45)
[2017-01-08] MEDS: LEVOFLOXACIN 750 MG TAB PO SCH (17:02)
--- NOTE | 2017-01-08 17:16 | HHI.CCPN ---
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 He was hypotensive, febrile up to 101 and received IV fluid resuscitation with improvement in his blood pressure. EKG showed ST-T wave changes, and troponin was elevated and peaked at 17.1. The patient has been evaluated by cardiology. For NSTEMI patient underwent PCI with bare metal stent to LCx by Dr. Krause on 11/30/16. The patient had a CT of the abdomen and pelvis on admission which showed marked soft tissue thickening in the distal esophagus concerning for esophageal cancer. The patient was also noted to have liver cirrhosis and mild splenomegaly. Patient has a history of alcohol intake but according to the girlfriend has not had alcoholic drinks for several months. CTA no evidence of pulmonary embolism or pneumonia. Critical care was consulted today for altered mentation, persistent fever, MSSA bacteremia and worsening sepsis. Apparently patient was agitated overnight requiring restraints. He also sustained a fall when he tried to climb out of the bed. CT of the head was negative except for a possible artifact left temporal region. An MRI which was done today came back negative. On my evaluation the ICU patient was very lethargic and tachypneic breathing approximately 35-40. ABG showed respiratory alkalosis. His altered mentation is most likely secondary to severe sepsis, alcohol withdrawal seems less likely. Blood cultures 4/4 growing MSSA, lactic acid 3,6. 12/25: Today underwent EGD with esophageal stent placement. significant bleeding from distal esophagus. GI and anesthesia felt patient should remain intubated for airway protection. In addition, patient persistently hypotensive requiring vasopressors, phenylephrine at 100 mcg/min, and in a flutter RVR on diltiazem drip. On my evaluation, patient was becoming more unstable. Adenosine 6mg iv x 1 was given which confirmed the rhythm as a flutter, but did not convert patient. give that patient was not anticoagulated, risk/benefit of electrical cardioversion at that time was in favor of conservative measures. patient bolused with amiodarone and placed on amiodarone drip, along with aggressive electrolyte replacement. Of note, patient also has new documented diagnosis of dynamic LVOT obstruction due to his LV hypertrophy and hyperdynamic cardiac function. Critical care medicine re-consulted to evaluate and manage his respiratory failure and cardiac dysrhythmias. 12/26: No more bleeding. Will work to extubate and start liquids, continue oral meds, especially beta gutierrez. 12/29: Reconsulted due to A. fib with RVR. Currently on 5 L simple mask. On amiodarone and Cardizem drips. Looks like some pulmonary edema will be actively diuresed. 12/30: Remains in A. fib with RVR. Currently on 10 L simple mask. Continues on amiodarone drip at 0.5 mg per minute and Cardizem drip at 20 mg an hour. Despite diuresis, increasing oxygen requirements. 12/31: Good response to diuresis. Weight still up about 10 kg. Dense infiltrate right chest, increasing FiO2 requirements. 01/01: Continued respiratory failure. FiO2 70% in tight BiPAP with sats 88%. Labored respirations and poor peripheral perfusion. Will need left effusion and pericardium tapped. I predict problems with hypotension if we use sedation - will start neosynephrine then induce. I have discussed the risks of pericardiocentesis and thoracentesis in detail with the patient, especially increased arrhythmia risk, possibly fatal. 01/02: Resting comfortable in bed. FiO2 40%. Arousable and follows commands. Status post pericardiocentesis yesterday. 20 cc past 24 hours. 01/03: Tmax 99.8. FiO2 down to 35%. Remains on Oziel-Synephrine at 70 g per minute. Currently normal sinus rhythm. Will attempt thoracentesis left side today permission obtainable with possible attempt at extubation soon. Initiating TPN for nutrition. 01/04: Resting comfortable in bed. Currently afebrile. #10 Singaporean pigtail catheter placed left pleural effusion yesterday. -210 cc overnight. No bowel movement 5 days. Relistor, and enema provided today. Nurse states that that patient possible seizure. CT head/EEG ordered for today. 01/05: Remains intubated sedated. L pigtail with 1.5 L output since yesterday. EEG normal- no sz. Ct head negative. Cytology from Pericardial fluid pending. Will await cytology prior to deciding on CTS consult for pericardial window Subjective 01/06: On minimal sedation. Remains on Amiodarone, Cardizem gtt. On oziel- synephrine to keep MAP >65. Pericardial drain with only minimal out put-will remove drain today. Bedside echo today. Additional Lasix and 1 dose of Diamox ordered for fluid overload 01/07: Extubated yesterday, tolerating reasonably well. good O2 sats on 4L NC. UO 5L in 24 hours, Aftab CT with 2.5 L in 24 hours. Afib rate . Will switch to PO Amiodarone. Swallow eval today. Limited 2D Echo. Pericardial drain removed yesterday 01/07. 01/08: Breathing with acceptable comfort after extubation about 40 hours ago. Pericardial drain out. Serous drainage persists right chest tube. Pericardial fluid negative for malignant cells despite bloody content. Objective Vital Signs Date Time Temp Pulse Resp B/P (MAP) Pulse Ox O2 Delivery O2 Flow Rate FiO2 01/08/17 16:00 89 01/08/17 16:00 98.7 21 126/63 (84) 96 01/08/17 11:00 Nasal Cannula 3.00 01/06/17 14:40 35 Intake and Output 01/08/17 01/08/17 01/09/17 08:00 16:00 00:00 Intake Total 481 ml Output Total 1560 ml Balance -1079 ml Result Diagram: 01/07/17 0315 01/08/17 1245 Imaging Last Impressions Chest X-Ray 01/03/17 1334 Signed Impressions: Service Date/Time: Tuesday, January 03, 2017 13:42 - CONCLUSION: Stable chest. Pericardial drain. Left-sided chest tube without pneumothorax. Jagjit Tapia MD CT Angiography 12/31/16 0000 Signed Impressions: Service Date/Time: Saturday, December 31, 2016 01:00 - CONCLUSION: 1. Study is negative for pulmonary embolism. 2. Pericardial effusion, diffuse patchy consolidation in both lungs, collapse left lower lobe, bilateral pleural effusions, esophageal stent, similar to yesterday's CT thorax. Kulwant Gupta MD Thoracentesis 12/30/16 0000 Signed Impressions: Service Date/Time: Friday, December 30, 2016 15:34 - CONCLUSION: Uncomplicated CT-guided thoracentesis. Kiran Harding MD Chest CT 12/29/16 0000 Signed Impressions: Service Date/Time: Friday, December 30, 2016 10:56 - CONCLUSION: 1. Moderate bilateral pleural effusions. 2. Areas of consolidation in the upper lobes bilaterally and in the right middle and right lower lobe. There is some combination of consolidation and atelectasis seen in the left lower lobe. Underlying diffuse processes should be considered including edema. 3. Esophageal stent in place. There is increased density within the stent which could be from fluid or soft tissue. 4. Non-specific mildly prominent lymph nodes in the mediastinum. 5. Moderate pericardial effusion. 6. Possible 3rd non-displaced right rib fracture. Washington Chou MD GI Procedure 12/25/16 0000 Signed Impressions: Service Date/Time: December 19:33 - CONCLUSION: Spot film as above. Everett Pollock MD FACR Barium Swallow X-Ray 12/20/16 Signed Impressions: Service Date/Time: Tuesday, December 20, 2016 13:15 - CONCLUSION: 1. The distal half of the esophagus demonstrates irregular luminal narrowing consistent with the patient's history of esophageal adenocarcinoma. 2. Mild dilatation of the esophagus immediately proximal to the esophageal mass. However, there are no signs of obstruction. 3. Small hiatal hernia. Washington Marroquin MD Abdomen MRI 12/17/16 Signed Impressions: Service Date/Time: Saturday, December 17, 2016 13:59 - CONCLUSION: 1. No acute finding is identified to explain the abdominal pain. 2. Stable thickening of the distal esophagus. There is a single mildly enlarged left gastric lymph node measuring 12 x 10 mm. 3. Moderate sized bilateral pleural effusions, left larger than right, with associated compressive atelectasis. Washington Marroquin MD Head CT 12/01/16 0000 Signed Impressions: Service Date/Time: Thursday, December 01, 2016 07:59 - CONCLUSION: 1. Questionable area of low attenuation left temporal lobe could be artifact versus less likely infarct. MRI may be warranted based on clinical history. 2. No midline shift or mass effect. 3. No intraparenchymal hemorrhage. Jagjit Tapia MD Brain MRI 12/01/16 0000 Signed Impressions: Service Date/Time: Thursday, December 01, 2016 12:07 - CONCLUSION: Normal examination. Barrett Rodriguez MD Abdomen X-Ray 12/01/16 0000 Signed Impressions: Service Date/Time: Thursday, December 01, 2016 16:48 - CONCLUSION: No evidence of obstruction. Feeding tube tip in the distal stomach. Barrett Rodriguez MD Abdomen/Pelvis CT 11/29/16 2356 Signed Impressions: Service Date/Time: Wednesday, November 30, 2016 01:35 - CONCLUSION: 1. Markedly abnormal appearance of the distal esophagus consistent with the history of esophageal carcinoma. 2. Atherosclerotic calcifications of the aorta and iliac vessels. 3. Cirrhotic appearance to the liver with a mildly nodular contour present. Erik Simon MD Objective Remarks GENERAL: Patient is 61 yo male, currently on 4L NC SKIN: Warm and dry. HEAD: Normocephalic. EYES: No scleral icterus. No injection or drainage. MOUTH: No bleeding. Moist membranes. NECK: trachea midline. No JVD. No thrush CARDIOVASCULAR: Currently normal sinus rhythm. S1, S2 no S4. Pericardial rub+. Systolic and diastolic murmur in all areas. RESPIRATORY: Diminished breath sounds bases. Persistent crackles appreciated. Aftab pigtail catheters GASTROINTESTINAL: Abdomen soft, non-tender, nondistended. BS active. MUSCULOSKELETAL: Trace bilateral lower extremity peripheral edema. Single lumen PICC line in left upper extremity. Neuro: Awake alert, following commands currently. Off all sedation. Very weak. Procedures central line/ arterial line placement intubation cardiac catheterization port removal EUS with esophageal stent placement A/P Assessment and Plan NEURO/Psych: Acute metabolic encephalopathy-improving Possible alcohol withdrawal Chronic oxycodone use Encephalopathy most likely secondary to hypoxia, sepsis, now resolved Completed therapy with Thiamine, MVI for EtOH withdrawal. Acetaminophen for fever Currently off all sedation. Oxycodone for pain management 5-10 every 4 hours when necessary Holding tramadol/home medication RESP: Acute hypoxemic respiratory failure - multifactorial History COPD Anterior airway Tobacco abuse Bilateral pleural effusions - Emergently intubated and placed on mechanical ventilation 12/02/16, extubated successfully 12/03/16, (Intubated with GlideScope #4 blade Grade 2 view, easy intubation) - Re intubated 01/01/17 PRVC ventilation 16//05/22/34. Extubated 01/06 - Ventilator bundle. DuoNeb every 6 hours scheduled and every 2 hours when necessary - CT chest revealed bilateral pleural effusions. Thoracentesis -1200 cc 12/30. Placement of Left #10 Singaporean pigtail catheter 01/03. -40 cm, 310 ml output in 24 hours Placement of right #10 Singaporean pigtail catheter 01/06. -40 cm, 2100 ml output in 24 hour CV: Pericardial effusion, tamponade status post pericardiocentesis 01/01/17 Atrial fibrillation with RVR currently normal sinus rhythm NSTEMI Dynamic LVOT obstruction Coronary artery disease status post bare metal stent to left circumflex Krause 12/01 Emergency Pericardiocentesis drains -01/01. Cc. Cultures no growth. Removed drain 01/06, check follow up limited Echo Cardiac catheterization 12/01 revealed EF around 60%. Left main normal. RCA normal. LAD 70% ostial. Bare stent left circumflex 70%. Continue ASA 162 mg daily (300 mg IN while nothing by mouth)/Plavix 75 mg daily Currently on amiodarone drip at 0.5 mg/m, change to PO. resume Metoprolol 25 mill grams every 6 hours (metoprolol was held secondary to no oral intake) 2-D echo no veg, EF 50-55%. Mild MR, mild AR. Pseudo-on flow obstruction due to concentric hypertrophy and hyperdynamic ventricle Holding home medications of losartan 100 mg, amlodipine 10 mg daily. On atorvastatin 40 by mouth daily for dyslipidemia when able to swallow Cytology, negative for malignancy GI: Invasive adenocarcinoma of the esophagus Liver cirrhosis - Swallow eval today- diet per speech cleared by GI - Has biopsy proven invasive adenocarcinoma of esophagus - Status post EUS/esophageal stent placement 12/25 - IV Protonix for twice a day continue. Carafate cannot be given secondary to the pass NG tube - TPN goal 60 cc an hour -wean slowly with increasing PO intake - Surgery/Dr. Rich is following. : Acute kidney failure/ATN resolved - Monitor renal function closely. Saxena catheter. -On Lasix 20 IV BID, additional 40 MG VIx1 today Follow BMP in a.m. ID: Septic shock-resolved MSSA bacteremia [id number] infection status post removal Pseudomonas pneumonia - Previously Rapid clinical improvement after Qyvhde-k-Koai was removed remains off all pressors - Catheter tip culture blood culture and wound culture also positive for MSSA - Continue Rifampin, for synergy, and Cefepime antipseudomonal dosing He will need 6 weeks IV Abx - Infectious disease Dr. Nassar. 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 Bell is following - Status post surgical resection for L parotid SCC at [facility] 10/01 --Hematology plans to give weekly Erbitux and XRT outpatient. Transfuse goal hemoglobin greater than 8 ENDO: Hypokalemia Hypo-magnesium Diabetes Hypothyroidism Chronic prednisone use - Electrolyte replacement per protocol - SSI every 6 hours with detemir 30 units every 12 hours, Continue TPN. Holding home medications of metformin 1000 mg twice a day and glipizide 20 mill grams by mouth twice a day - Continue thyroid supplementation with levothyroxine 50 mg daily/home medication *(25 g IV daily while nothing by mouth) . TSH 0.555 on admission Continue Solu-Medrol 20 mg IV daily PROPH: - Bilateral lower extremity SCDs. No pharmacological prophylaxis secondary to hemoptysis - Pantoprazole 40 iv twice a day Overall impression: Very ill, severely debilitated man with depleted nutritional status and marginal respiratory function. Freddy Bueno MD Jan 08, 2017 17:16
--- NOTE | 2017-01-08 23:22 | PD.ONC.PN ---
Subjective Subjective Remarks awake and alert s/p extubation right chest tube with output swallowing ok Objective Data Date Time Temp Pulse Resp B/P (MAP) Pulse Ox O2 Delivery O2 Flow Rate FiO2 01/08/17 20:00 82 01/08/17 20:00 93 Nasal Cannula 3.00 01/08/17 20:00 98.6 82 26 129/60 (83) 93 01/08/17 18:15 25 01/08/17 18:00 83 01/08/17 16:00 89 01/08/17 16:00 98.7 88 21 126/63 (84) 96 01/08/17 14:00 88 01/08/17 12:00 98.8 84 22 128/60 (82) 97 01/08/17 12:00 85 01/08/17 11:00 94 Nasal Cannula 3.00 01/08/17 11:00 85 01/08/17 09:33 93 Nasal Cannula 3.00 01/08/17 08:00 99.0 82 29 116/56 (76) 92 01/08/17 06:00 91 01/08/17 04:00 95 01/08/17 04:00 98.4 94 24 127/58 (81) 95 01/08/17 02:00 88 01/08/17 00:00 87 01/08/17 00:00 98.3 88 20 126/60 (82) 95 Result Diagram: 01/07/17 0315 01/08/17 1245 Laboratory Results Laboratory Tests Test 01/07/17 23:45 01/08/17 12:45 Potassium Level 3.4 MEQ/L 3.7 MEQ/L Culture Results Microbiology Date/Time Source Procedure Growth Status 01/06/17 12:30 Fluid Pleural Fluid Fungal Smear - Final NO FUNGAL ELEMENTS SEEN. Resulted 01/06/17 12:30 Fluid Pleural Fluid Fungal Culture Pending Resulted 01/06/17 12:30 Fluid Pleural Fluid Acid Fast Stain - Final NO ACID FAST BACILLI SEEN Resulted 01/06/17 12:30 Fluid Pleural Fluid Mycobacterial Culture Pending Resulted 01/06/17 12:30 Fluid Pleural Fluid Gram Stain - Final Resulted 01/06/17 12:30 Fluid Pleural Fluid Body Fluid Culture - Preliminary NO GROWTH IN 48 HOURS. Resulted Administered Medications Medications (Trade) Dose Ordered Sig/Geovanny Route PRN Reason Start Time Stop Time Status Last Admin Dose Admin Sodium Chloride (NS Flush) 2 ml UNSCH PRN IV FLUSH FLUSH AFTER USING IV ACCESS 11/30/16 02:45 12/24/16 09:59 Sodium Chloride (NS Flush) 2 ml BID IV FLUSH 11/30/16 09:00 01/08/17 19:49 Oxycodone HCl (Roxicodone) 5 mg Q4H PRN PO PAIN SCALE 3 TO 5 11/30/16 02:45 12/31/16 18:24 Senna/Docusate Sodium (Rere-Colace) 1 tab BID PO 11/30/16 09:00 01/08/17 19:49 Acetaminophen (Tylenol) 325 mg Q4H PRN PO PAIN SCALE 1 TO 2 11/30/16 13:45 12/13/16 17:13 Clopidogrel Bisulfate (Plavix) 75 mg DAILY PO 12/01/16 09:00 Future Hold 12/25/16 08:06 Ondansetron HCl (Zofran Inj) 4 mg Q4H PRN IV NAUSEA 11/30/16 13:45 12/24/16 22:41 Sodium Chloride (NS Flush) 5 ml Q21D IV FLUSH 11/30/16 18:00 12/21/16 17:19 Heparin Sodium (Porcine) (Heparin Central Flush) 500 units Q21D IV FLUSH 11/30/16 18:00 11/30/16 18:04 Acetaminophen (Tylenol 650 Mg/ 20 ml Liq) 650 mg Q6H PRN PO FEVER 12/01/16 17:30 12/02/16 01:07 Polyethylene Glycol (Miralax) 17 gm DAILY PO 12/04/16 09:00 01/07/17 08:43 Thiamine HCl (Vitamin B1) 100 mg DAILY PO 12/05/16 09:00 01/08/17 10:29 Multivitamins (Theragran) 1 tab DAILY PO 12/05/16 09:00 01/08/17 10:29 Folic Acid (Folate) 1 mg DAILY PO 12/05/16 09:00 Future Hold 12/25/16 08:07 Rifampin (Rifampin) 300 mg Q12HR PO 12/06/16 09:15 01/15/17 23:00 Future Hold 01/01/17 09:52 Lorazepam (Ativan Inj) 1 mg Q4H PRN IV PUSH ANXIETY AND/OR AGITATION 12/09/16 15:15 12/31/16 14:16 Atorvastatin Calcium (Lipitor) 40 mg HS PO 12/12/16 21:00 Future Hold 12/24/16 21:00 Sodium Chloride (NS Flush) See Protocol DAILY IV FLUSH 12/13/16 09:00 12/27/16 08:04 Heparin Sodium (Porcine) (Heparin Central Flush) See Protocol DAILY IV FLUSH 12/13/16 09:00 12/27/16 08:05 Sodium Chloride (NS Flush) UNSCH PRN IV FLUSH SEE PROTOCOL TABLE 12/12/16 17:00 12/19/16 01:59 Lorazepam (Ativan) 0.5 mg DAILY PRN PO ANXIETY 12/18/16 15:45 Future Hold 12/19/16 08:29 Diltiazem HCl (Cardizem) 90 mg Q6H PO 12/18/16 23:00 Future Hold 12/25/16 12:14 Oxycodone HCl (Roxicodone) 15 mg Q4H PRN PO PAIN 6-10 12/21/16 11:00 01/08/17 17:15 Digoxin (Lanoxin) 0.25 mg DAILY PO 12/22/16 09:00 Future Hold 12/25/16 08:06 Sucralfate (Carafate Liq) 1 gm ACHS PO 12/22/16 11:00 01/08/17 19:49 Metoprolol Tartrate (Lopressor Inj) 5 mg Q1HR PRN IV PUSH RAPID HEART RATE 12/22/16 09:45 12/30/16 10:37 Pantoprazole Sodium (Protonix Inj) 40 mg Q12H IV PUSH 12/22/16 10:00 01/08/17 21:13 Aspirin (Ecotrin Ec) 81 mg DAILY PO 12/23/16 09:00 Future Hold 12/25/16 08:06 Metoprolol Tartrate (Lopressor) 25 mg Q6HR PO 12/22/16 13:00 01/08/17 17:02 Magnesium Oxide (Mag-Ox) 800 mg UNSCH PRN PO For Magnesium 1.2 - 1.6 mg/dL 12/25/16 21:00 12/27/16 06:46 Potassium Chloride 100 ml @ 50 mls/hr Q2H PRN IV For Potassium 3.3 - 3.5 mEq/L 12/25/16 21:00 01/08/17 04:35 Potassium Chloride 100 ml @ 25 mls/hr UNSCH PRN IV For Potassium 3.3 - 3.5 mEq/L 12/25/16 21:00 01/04/17 06:32 Sodium Phosphate 30 mmol/Sodium Chloride 250 ml @ 42 mls/hr UNSCH PRN IV For Phosphorus < 2.5 mg/dL 12/25/16 21:00 12/30/16 06:49 Chlorhexidine Gluconate (Peridex 0.12% Liq) 15 ml BID@08,20 MT 12/26/16 08:00 01/08/17 19:50 Insulin Human Regular (NovoLIN R SUPPLEMENTAL SCALE) 1 Q6HR SQ 12/26/16 00:00 01/08/17 18:08 Albuterol/ Ipratropium (Duoneb Neb) 1 ampule Q2HR NEB PRN INH WHEEZING 12/25/16 21:00 01/02/17 19:29 Clopidogrel Bisulfate (Plavix) 75 mg DAILY PO 12/29/16 09:00 01/08/17 10:30 Aspirin (Ecotrin Ec) 162 mg DAILY PO 12/29/16 09:00 Future Hold 01/01/17 09:52 Prednisone (Deltasone) 5 mg DAILY PO 12/29/16 09:00 Future Hold 01/01/17 09:49 Levothyroxine Sodium (Synthroid) 50 mcg DAILY@06 PO 12/30/16 06:00 Future Hold 01/01/17 05:30 Chlorhexidine Gluconate (Peridex 0.12% Liq) 15 ml BID@08,20 AL 01/01/17 20:00 01/08/17 19:50 Aspirin (Aspirin Supp) 300 mg DAILY RECTAL 01/03/17 09:00 01/08/17 10:49 Levothyroxine Sodium (Synthroid Inj) 25 mcg DAILY@06 IV PUSH 01/04/17 06:00 01/08/17 06:26 Rifampin 300 mg/ Sodium Chloride 100 ml @ 100 mls/hr Q12H IV 01/03/17 10:00 01/15/17 09:59 01/08/17 21:12 Methylprednisolone Sodium Succinate (SoluMEDROL INJ) 20 mg DAILY IV PUSH 01/03/17 09:00 01/08/17 10:26 Multivitamins 10 ml/Folic Acid 1 mg/Amino Acids/ Electrolytes/ Dextrose 2,010.2 ml @ 60 mls/hr Q24H IV-CENTRAL 01/03/17 20:00 01/07/17 20:38 Artificial Tears (Tears Naturale Opth Soln) 1 drop Q8HR EACH EYE 01/04/17 14:00 01/08/17 21:13 Albuterol/ Ipratropium (Duoneb Neb) 1 ampule Q6HR NEB NEB 01/06/17 16:00 01/08/17 20:38 Insulin Detemir (Levemir Inj) 30 units Q12HR SQ 01/06/17 21:00 01/08/17 19:51 Furosemide (Lasix Inj) 20 mg Q12HR IV PUSH 01/06/17 21:00 01/08/17 19:49 Amiodarone HCl (Cordarone) 200 mg Q12HR PO 01/07/17 10:00 01/08/17 19:50 Cefazolin Sodium/ Dextrose 50 ml @ 100 mls/hr Q8H IV 01/07/17 17:00 01/15/17 16:59 01/08/17 17:02 Levofloxacin (Levaquin) 750 mg DAILY@1800 PO 01/07/17 18:00 01/14/17 17:59 01/08/17 17:02 Objective Remarks GENERAL: acutely ill SKIN: Warm and dry NECK: Supple, trachea midline. No JVD or lymphadenopathy. LYMPHATIC: No adenopathy. CARDIOVASCULAR: Regular rate and rhythm without murmurs. RESPIRATORY: Breath sounds equal bilaterally. GASTROINTESTINAL: Abdomen soft, non-tender, nondistended. EXTREMITIES: No cyanosis, or edema. v Assessment/Plan Problem List: (1) Esophageal adenocarcinoma ICD Codes: C15.9 - Malignant neoplasm of esophagus, unspecified Status: Acute Plan: --EUS with esophageal stent placement on 12/25 --++hemoptysis --we plan to give weekly Erbitux and XRT outpatient. --patient had OP EGD with biopsy, pathology showed adenocarcinoma. --EGD/Colonoscopy, 11/20/16--showed long stricture in the mid esophagus and distal esophagus, multiple biopsies were performed Pathology revealed invasive adenocarcinoma- distal esophagus --XRT simulation done 8/4. (2) SCC (squamous cell carcinoma) ICD Codes: C44.92 - Squamous cell carcinoma of skin, unspecified Status: Acute Plan: --has a head and neck, lung malignancy which was locally advanced. --received definitive treatment with surgery. Post surgery he had positive margins and some poor risk features and he was about to get concurrent chemotherapy and radiation and adjuvantly to achieve local control of the disease --PET scan to stage his disease prior to treatment showed an esophageal mass (3) Normocytic anemia ICD Codes: D64.9 - Anemia, unspecified Status: Acute Plan: --hgb stable --transfuse packed red blood cells if his hemoglobin drops below 8.5 --s/p iron infusion (4) Afib ICD Codes: I48.91 - Unspecified atrial fibrillation Status: Acute Plan: --cardiology following. --s/p chest tube placement on 01/06. --on Plavix (on hold) --on ASA (5) Sepsis ICD Codes: A41.9 - Sepsis, unspecified organism Status: Resolved Plan: --BC 8.18: pending BC, 7.24 no growth BC, 12/07 no growth --BC, 12/05 +, S. Aureus --had removal of port, + S. aureus --on Cefepime (6) NSTEMI (non-ST elevated myocardial infarction) ICD Codes: I21.4 - Non-ST elevation (NSTEMI) myocardial infarction Status: Acute Plan: --had elevated troponin and ST-segment changes consistent with acute NC. 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 Also with a new diagnosis of early stage gastric cancer Plan 1. No CBC today 2.Chest tube draining/pericardial window drain out 3. check CBC in AM 4. Remains medically unstable for any treatment for gastric cancer Problem Qualifiers (1) Afib: (2) Sepsis: Brant Bell MD Jan 08, 2017 23:22
[2017-01-09] VITALS (11 sets, daily range): BP systolic 114–163; BP diastolic 54–70; PULSE 72–97; RESP 12–25; TEMP 98–98.5; O2SAT 92–99
[2017-01-09] MEDS: ceFAZolin 2 GM PREMIX 50 ML IV SCH ×3 (01:55→19:04)
[2017-01-09] MEDS: METOPROLOL TARTRATE 25 MG TAB PO SCH ×4 (01:55→19:02)
[2017-01-09] MEDS: RESP: ALBUTEROL 2.5 MG/IPRATROPIUM 0.5 MG NEB (SCH) NEB ×4 (03:29→21:14)
[2017-01-09] MEDS: CLINIMIX E 4.25/25 2000 mL- >42 mls/hr IV-CENTRAL SCH ×3 (05:30)
[2017-01-09] MEDS: SUCRALFATE 1 GM/10 ML CUP PO SCH ×4 (05:33→21:25)
[2017-01-09] MEDS: ARTIFICIAL TEARS OPTH SOLN 15 ML BTL EACH EYE SCH ×3 (05:33→21:26)
[2017-01-09] MEDS: LEVOTHYROXINE SODIUM 100 MCG VIAL IV PUSH SCH (05:33)
[2017-01-09 05:47] LABS: AUTOMATED NEUTROPHIL # 7.9 TH/MM3 (1.8-7.7); BASOPHIL % 0.3 % (0.0-2.0); EOSINOPHIL # 0.1 TH/MM3 (0-0.4); EOSINOPHIL % 0.7 % (0.0-4.0); HEMATOCRIT 30.6 % (39.0-51.0); HEMO FLAGS DIFF FINAL; LYMPH % 7.3 % (9.0-44.0); LYMPHOCYTE # 0.7 TH/MM3 (1.0-4.8); MEAN CELL VOLUME 87.1 FL (80.0-100.0); MEAN CORPUSCULAR HEMOGLOBIN 28.2 PG (27.0-34.0); MEAN CORPUSCULAR HGB CONC 32.4 % (32.0-36.0); MONO % 7.3 % (0.0-8.0); NEUT % 84.4 % (16.0-70.0); PLATELET COUNT 191 TH/MM3 (150-450); RED BLOOD COUNT 3.51 MIL/MM3 (4.50-5.90); RED CELL DISTRIBUTION WIDTH 19.5 % (11.6-17.2); WHITE BLOOD COUNT 9.4 TH/MM3 (4.0-11.0)
[2017-01-09 05:56] LABS: POTASSIUM 3.6 MEQ/L (3.5-5.1)
[2017-01-09] MEDS: INSULIN NovoLIN REGULAR SUPPLEMENTAL SCALE SQ SCH ×4 (06:00→19:04)
[2017-01-09] MEDS: CHLORHEXIDINE 0.12% (ORAL KIT) 15 ML CUP MT SCH ×4 (08:00→20:00)
[2017-01-09] MEDS: ASPIRIN 300 MG SUPP RECTAL SCH (09:20)
[2017-01-09] MEDS: DOCUSATE SODIUM 50 MG/SENNA 8.6 MG TAB PO SCH ×2 (09:20→21:00)
[2017-01-09] MEDS: FUROSEMIDE 20 MG/2 ML VIAL IV PUSH SCH ×2 (09:20→21:27)
[2017-01-09] MEDS: THIAMINE HCL 100 MG TAB PO SCH (09:20)
[2017-01-09] MEDS: MULTIVITAMIN TAB PO SCH (09:20)
[2017-01-09] MEDS: CLOPIDOGREL 75 MG TAB PO SCH (09:21)
[2017-01-09] MEDS: PANTOPRAZOLE SODIUM 40 MG VIAL IV PUSH SCH ×2 (09:21→21:27)
[2017-01-09] MEDS: methylPREDNISolone SOD SUCC 40 MG/1 ML VIAL IV PUSH SCH (09:22)
[2017-01-09] MEDS: POLYETHYLENE GLYCOL 17 GM PKG PO SCH (09:22)
[2017-01-09] MEDS: AMIODARONE 200 MG TAB PO SCH ×2 (09:24→21:25)
[2017-01-09] MEDS: SODIUM CHLORIDE 0.9% FLUSH 10 ML FLUSH IV FLUSH SCH ×3 (09:24→21:00)
[2017-01-09] MEDS: INSULIN DETEMIR 100 UNITS/ML VIAL SQ SCH ×2 (09:25→23:05)
--- NOTE | 2017-01-09 10:03 | HHI.GIFU ---
Subjective Remarks Sitting up in chair. States he is tolerating his diet without difficulty swallowing, but has poor appetite. No n/v. (Nga Ramos) Objective Vitals I&O Vital Signs Date Time Temp Pulse Resp B/P (MAP) Pulse Ox O2 Delivery O2 Flow Rate FiO2 01/09/17 04:00 98.4 72 25 163/69 (100) 92 01/09/17 04:00 92 01/09/17 02:00 86 01/09/17 00:00 98.5 91 25 148/67 (94) 93 01/09/17 00:00 91 01/08/17 22:40 24 01/08/17 22:00 82 01/08/17 20:00 82 01/08/17 20:00 93 Nasal Cannula 3.00 01/08/17 20:00 98.6 82 26 129/60 (83) 93 01/08/17 18:00 83 01/08/17 16:00 89 01/08/17 16:00 98.7 88 21 126/63 (84) 96 01/08/17 14:00 88 01/08/17 12:00 98.8 84 22 128/60 (82) 97 01/08/17 12:00 85 01/08/17 11:00 94 Nasal Cannula 3.00 01/08/17 11:00 85 I/O 01/08/17 01/08/17 01/08/17 01/09/17 01/09/17 01/09/17 06:59 14:59 22:59 06:59 14:59 22:59 Intake Total 579 ml 1460 ml Output Total 1560 ml 2150 ml Balance -981 ml -690 ml Intake Oral 240 ml 420 ml IV Total 339 ml 320 ml TPN/PPN 720 ml Output Urine Total 1400 ml 1400 ml Chest Tube Drainage Total 160 ml 750 ml # Bowel Movements 2 2 Laboratory Laboratory Tests Test 01/08/17 12:45 01/09/17 05:15 Potassium Level 3.7 3.6 White Blood Count 9.4 Red Blood Count 3.51 Hemoglobin 9.9 Hematocrit 30.6 Mean Corpuscular Volume 87.1 Mean Corpuscular Hemoglobin 28.2 Mean Corpuscular Hemoglobin Concent 32.4 Red Cell Distribution Width 19.5 Platelet Count 191 Mean Platelet Volume 8.6 Neutrophils (%) (Auto) 84.4 Lymphocytes (%) (Auto) 7.3 Monocytes (%) (Auto) 7.3 Eosinophils (%) (Auto) 0.7 Basophils (%) (Auto) 0.3 Neutrophils # (Auto) 7.9 Lymphocytes # (Auto) 0.7 Monocytes # (Auto) 0.7 Eosinophils # (Auto) 0.1 Basophils # (Auto) 0.0 CBC Comment DIFF FINAL Differential Comment Blood Urea Nitrogen 16 Creatinine 0.46 Random Glucose 172 Calcium Level 7.5 Sodium Level 135 Chloride Level 97 Carbon Dioxide Level 31.0 Anion Gap 7 Estimat Glomerular Filtration Rate 187 Date/Time Source Procedure Growth Status 01/02/17 06:00 Blood Peripheral Aerobic Blood Culture - Final NO GROWTH IN 5 DAYS Complete 01/02/17 06:00 Blood Peripheral Anaerobic Blood Culture - Final NO GROWTH IN 5 DAYS Complete 01/06/17 12:30 Fluid Pleural Fluid Fungal Smear - Final NO FUNGAL ELEMENTS SEEN. Resulted 01/06/17 12:30 Fluid Pleural Fluid Fungal Culture Pending Resulted 12/24/16 12:42 Stool Stool Stool Occult Blood (DAINA) - Final HEMOCCULT NEGATIVE Complete 01/02/17 20:13 Sputum Endotracheal Gram Stain - Final Complete 01/02/17 20:13 Sputum Culture - Final Pseudomonas Aeruginosa Complete 12/01/16 17:00 Urine Catheterized Urine Urine Culture - Final Staphylococcus Aureus Complete 12/02/16 20:00 Catheter Tip Other Wound Culture - Final Staphylococcus Aureus Complete Imaging Last Impressions Chest X-Ray 01/07/17 0600 Signed Impressions: Service Date/Time: Saturday, January 07, 2017 04:10 - CONCLUSION: 1. Cardiomegaly with mild edema pattern. Basal airspace disease slightly increased from January 06. Previous endotracheal tube has been removed. Kervin Krause MD Abdomen X-Ray 01/07/17 0000 Signed Impressions: Service Date/Time: Saturday, January 07, 2017 11:56 - CONCLUSION: Visualized portions of the lower chest demonstrate a presumed esophageal stent. Erik Simon MD Head CT 01/04/17 0000 Signed Impressions: Service Date/Time: Thursday, January 05, 2017 03:41 - CONCLUSION: 1. No acute intracranial abnormalities. Fluid in the mastoid air cells characteristic of mastoiditis. Kervin Krause MD CT Angiography 12/31/16 0000 Signed Impressions: Service Date/Time: Saturday, December 31, 2016 01:00 - CONCLUSION: 1. Study is negative for pulmonary embolism. 2. Pericardial effusion, diffuse patchy consolidation in both lungs, collapse left lower lobe, bilateral pleural effusions, esophageal stent, similar to yesterday's CT thorax. Kulwant Gupta MD Thoracentesis 12/30/16 0000 Signed Impressions: Service Date/Time: Friday, December 30, 2016 15:34 - CONCLUSION: Uncomplicated CT-guided thoracentesis. Kiran Harding MD Chest CT 12/29/16 0000 Signed Impressions: Service Date/Time: Friday, December 30, 2016 10:56 - CONCLUSION: 1. Moderate bilateral pleural effusions. 2. Areas of consolidation in the upper lobes bilaterally and in the right middle and right lower lobe. There is some combination of consolidation and atelectasis seen in the left lower lobe. Underlying diffuse processes should be considered including edema. 3. Esophageal stent in place. There is increased density within the stent which could be from fluid or soft tissue. 4. Non-specific mildly prominent lymph nodes in the mediastinum. 5. Moderate pericardial effusion. 6. Possible 3rd non-displaced right rib fracture. Washington Chou MD GI Procedure 12/25/16 0000 Signed Impressions: Service Date/Time: December 19:33 - CONCLUSION: Spot film as above. Everett Pollock MD FACR Barium Swallow X-Ray 12/20/16 0000 Signed Impressions: Service Date/Time: Tuesday, December 20, 2016 13:15 - CONCLUSION: 1. The distal half of the esophagus demonstrates irregular luminal narrowing consistent with the patient's history of esophageal adenocarcinoma. 2. Mild dilatation of the esophagus immediately proximal to the esophageal mass. However, there are no signs of obstruction. 3. Small hiatal hernia. Washington Marroquin MD Abdomen MRI 12/17/16 0000 Signed Impressions: Service Date/Time: Saturday, December 17, 2016 13:59 - CONCLUSION: 1. No acute finding is identified to explain the abdominal pain. 2. Stable thickening of the distal esophagus. There is a single mildly enlarged left gastric lymph node measuring 12 x 10 mm. 3. Moderate sized bilateral pleural effusions, left larger than right, with associated compressive atelectasis. Washington Marroquin MD Brain MRI 7/17/17 0000 Signed Impressions: Service Date/Time: Thursday, December 01, 2016 12:07 - CONCLUSION: Normal examination. Barrett Rodriguez MD Abdomen/Pelvis CT 11/29/16 2356 Signed Impressions: Service Date/Time: Wednesday, November 30, 2016 01:35 - CONCLUSION: 1. Markedly abnormal appearance of the distal esophagus consistent with the history of esophageal carcinoma. 2. Atherosclerotic calcifications of the aorta and iliac vessels. 3. Cirrhotic appearance to the liver with a mildly nodular contour present. Erik Simon MD Physical Exam HEENT: Normocephalic; atraumatic; no jaundice. CHEST: Course breath sounds CARDIAC: RRR, systolic murmur, rub ABDOMEN: Soft, obese, nondistended, nontender; no hepatosplenomegaly; bowel sounds x 4 EXTREMITIES: BLE edema SKIN: Multiple ecchymotic areas NEURO: Alert and oriented x 3 (Nga Ramos) Assessment and Plan Plan ASSESSMENT: - Odynophagia/Dysphagia, S/P Esophageal stent placement. Barium Swallow X-Ray --1. The distal half of the esophagus demonstrates irregular luminal narrowing consistent with the patient's history of esophageal adenocarcinoma. 2. Mild dilatation of the esophagus immediately proximal to the esophageal mass. However, there are no signs of obstruction. 3. Small hiatal hernia. S/P EUS with esophageal stent placement --> esophageal ca T3 N0 Mx, large friable mass with oozing, food and debris in esophagus, lengthy process to clean out. GI was reconsulted for possible regurgitation. He has since been extubated and has not had any further episodes. ST following and has recommended Mechanical soft diet. He is tolerating this. But reports decreased appetite. Meal percentages are not being recorded. Will cont. TPN for now, get calorie count over the weekend and wean TPN if meeting nutritional needs. Add ensure. Of note, esophageal stent in place per KUB. - Upper GIB. RESOLVED. S/P 6 units PRBC. HH 9.9/30.6. - Esophageal cancer. PET Scan (10/28/16)----> negative examination of the head and neck, findings characteristic of esophageal neoplasm. S/P EGD/Colonoscopy (11/20/16)----> There was a long stricture i the mid esophagus and distal esophagus, multiple biopsies were performed, the mucosa of the stomach appeared normal, duodenal mucosa showed no abnormalities in the entire duodenum, retroflexed views revealed a small hiatal hernia; nine sessile polyps ranging from 4-12 mm in size were found at the cecum, in the ascending colon, descending colon, sigmoid colon, and rectum; polypectomy was performed using snare cautery, moderate diverticulosis was noted in the left colon, retroflexed views revealed internal grade I hemorrhoids, a digital rectal exam was performed and revealed no abnormalities of the anus. Pathology revealed invasive adenocarcinoma- distal esophagus, descending colon polyp and rectosigmoid polyp both benign hyperplastic colonic polyp, no adenomatous change or malignancy is seen. S/P XRT Simulation. Plan is for erbitux, radiation as outpatient. EUS as above - Constipation. (+) BM. Miralax - Abnormal imaging of the liver on CT scan, consistent with cirrhosis. Abdomen/ Pelvis CT (11/29/16)----> 1. Markedly abnormal appearance of the distal esophagus consistent with the history of esophageal carcinoma. 2. Atherosclerotic calcifications of the aorta and iliac vessels. 3. Cirrhotic appearance to the liver with a mildly nodular contour present. Abdomen MRI 12/17/16--1. No acute finding is identified to explain the abdominal pain. 2. Stable thickening of the distal esophagus. There is a single mildly enlarged left gastric lymph node measuring 12 x 10 mm. 3. Moderate sized bilateral pleural effusions, left larger than right, with associated compressive atelectasis. Unclear if he has hx of cirrhosis. There is mention of hx of HCV in EMR, but patient has had undetectable viral load as far back as 2001. Pt does report he has a history of HCV and was successfully treated with Interferon/ribavirin in the past. Iron saturation 4.1%, Ferritin 124, Hepatitis C antibodies (+), viral load undetectable, TERRIE negative, ASMA < 20.0, AMA neg, Ceruloplasmin 40 and alpha 1 antitrypsin 298. Labs and imaging consistent with cirrhosis. Pt does not currently drink, but states that he was a heavy drinker in the past. LFT stable. - Afib with RVR, Pericardial effusion, tamponade, s/p pericardiocentesis, NSTEMI. S/P left heart catheterization (11/30/16) with Dr. Murillo and this revealed RCA 10% lesion mid segment, mild calcifications left main, LAD with calcification from it's proximal segment to its midsegment however, with no significant obstructive lesions, The LAD is giving off to a diagonal which has a 70% lesion in its ostial segment, left circumflex artery with a proximal clot thrombus, S/P percutaneous coronary intervention/bare metal stent to proximal left circumflex. Now SR, Rate controlled. Cardiology following. - Respiratory failure, COPD, bilateral pleural effusion. S/P extubation. Right CT. - CLARA with electrolyte abnormalities. Improved. - Sepsis/Bacteremia/UTI. Urine and Bcx with Staphylococcus aureus. S/P removal of infusaport by GS (12/02). Rpt bcx no growth. Rifampin, cefepime - AMS, Acute metabolic encephalopathy. Head CT (12/01/16)-----> 1. Questionable area of low attenuation left temporal lobe could be artifact versus less likely infarct. MRI may be warranted based on clinical history. 2. No midline shift or mass effect. 3. No intraparenchymal hemorrhage. Brain MRI (12/01/16 )----> Normal examination. 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 S/P mohs surgery by a manager software in September of 2015 and shortly after this, developed a mass near the surgical area. S/P at [facility] with Dr. Valdovinos in June of 2016----> underwent extensive head and neck surgery involving a parotidectomy and radical neck dissection in September of 2016. Because of high risk features of local recurrence with perineural invasion and positive margins, it was recommended that he have concurrent chemoradiation therapy. He was evaluated by Dr. Cross for radiation and seen by Dr. Bell for oncology. PET Scan ()---> negative examination of the head and neck, findings characteristic of esophageal neoplasm. Direct visualization is recommended. - Hx HTN, Hyperlipidemia, DM. per attending. PLAN: - Mechanical soft diet - Add Glucerna - Record all meal percentages - Calorie count - If meeting nutritional needs, will wean off TPN - Monitor HH, transfuse as necessary - Cont. PPI - Cont. Carafate - Cont. Miralax - Monitor labs - Supportive care - Patient seen and examined by Dr. Nails and myself and this note is written on his behalf. (Nga Ramos) Physician Comments Seen and examined, plan as above. Will sign off for now, please notify us if needed. (Quintin Nails MD) Nga Ramos Jan 09, 2017 10:03 Quintin Nails MD Jan 09, 2017 10:54
--- NOTE | 2017-01-09 11:36 | PD.ONC.PN ---
Subjective Subjective Remarks Pt sitting up in chair at bedside in no acute distress Per the RN, his L sided chest tube was displaced about 30 minutes ago when he was getting [place] to the [facility] [place] Objective Data Date Time Temp Pulse Resp B/P (MAP) Pulse Ox O2 Delivery O2 Flow Rate FiO2 01/09/17 10:05 97 Nasal Cannula 4.00 01/09/17 04:00 98.4 72 25 163/69 (100) 92 01/09/17 04:00 92 01/09/17 02:00 86 01/09/17 00:00 98.5 91 25 148/67 (94) 93 01/09/17 00:00 91 01/08/17 22:40 24 01/08/17 22:00 82 01/08/17 20:00 82 01/08/17 20:00 93 Nasal Cannula 3.00 01/08/17 20:00 98.6 82 26 129/60 (83) 93 01/08/17 18:00 83 01/08/17 16:00 89 01/08/17 16:00 98.7 88 21 126/63 (84) 96 01/08/17 14:00 88 01/08/17 12:00 98.8 84 22 128/60 (82) 97 01/08/17 12:00 85 Result Diagram: 01/09/1715 01/09/17 0515 Laboratory Results Laboratory Tests Test 01/08/17 12:45 01/09/17 05:15 Potassium Level 3.7 MEQ/L 3.6 MEQ/L White Blood Count 9.4 TH/MM3 Red Blood Count 3.51 MIL/MM3 Hemoglobin 9.9 GM/DL Hematocrit 30.6 % Mean Corpuscular Volume 87.1 FL Mean Corpuscular Hemoglobin 28.2 PG Mean Corpuscular Hemoglobin Concent 32.4 % Red Cell Distribution Width 19.5 % Platelet Count 191 TH/MM3 Mean Platelet Volume 8.6 FL Neutrophils (%) (Auto) 84.4 % Lymphocytes (%) (Auto) 7.3 % Monocytes (%) (Auto) 7.3 % Eosinophils (%) (Auto) 0.7 % Basophils (%) (Auto) 0.3 % Neutrophils # (Auto) 7.9 TH/MM3 Lymphocytes # (Auto) 0.7 TH/MM3 Monocytes # (Auto) 0.7 TH/MM3 Eosinophils # (Auto) 0.1 TH/MM3 Basophils # (Auto) 0.0 TH/MM3 CBC Comment DIFF FINAL Differential Comment Blood Urea Nitrogen 16 MG/DL Creatinine 0.46 MG/DL Random Glucose 172 MG/DL Calcium Level 7.5 MG/DL Sodium Level 135 MEQ/L Chloride Level 97 MEQ/L Carbon Dioxide Level 31.0 MEQ/L Anion Gap 7 MEQ/L Estimat Glomerular Filtration Rate 187 ML/MIN Culture Results Microbiology Date/Time Source Procedure Growth Status 01/06/17 12:30 Fluid Pleural Fluid Fungal Smear - Final NO FUNGAL ELEMENTS SEEN. Resulted 01/06/17 12:30 Fluid Pleural Fluid Fungal Culture Pending Resulted 01/06/17 12:30 Fluid Pleural Fluid Acid Fast Stain - Final NO ACID FAST BACILLI SEEN Resulted 01/06/17 12:30 Fluid Pleural Fluid Mycobacterial Culture Pending Resulted 01/06/17 12:30 Fluid Pleural Fluid Gram Stain - Final Complete 01/06/17 12:30 Fluid Pleural Fluid Body Fluid Culture - Final NO GROWTH IN 72 HRS.--AEROBICALLY OR ... Complete Administered Medications Medications (Trade) Dose Ordered Sig/Geovanny Route PRN Reason Start Time Stop Time Status Last Admin Dose Admin Sodium Chloride (NS Flush) 2 ml UNSCH PRN IV FLUSH FLUSH AFTER USING IV ACCESS 11/30/16 02:45 12/24/16 09:59 Sodium Chloride (NS Flush) 2 ml BID IV FLUSH 11/30/16 09:00 01/09/17 09:24 Oxycodone HCl (Roxicodone) 5 mg Q4H PRN PO PAIN SCALE 3 TO 5 11/30/16 02:45 12/31/16 18:24 Senna/Docusate Sodium (Rere-Colace) 1 tab BID PO 11/30/16 09:00 01/09/17 09:20 Acetaminophen (Tylenol) 325 mg Q4H PRN PO PAIN SCALE 1 TO 2 11/30/16 13:45 12/13/16 17:13 Clopidogrel Bisulfate (Plavix) 75 mg DAILY PO 12/01/16 09:00 Future Hold 12/25/16 08:06 Ondansetron HCl (Zofran Inj) 4 mg Q4H PRN IV NAUSEA 11/30/16 13:45 12/24/16 22:41 Sodium Chloride (NS Flush) 5 ml Q21D IV FLUSH 11/30/16 18:00 12/21/16 17:19 Heparin Sodium (Porcine) (Heparin Central Flush) 500 units Q21D IV FLUSH 11/30/16 18:00 11/30/16 18:04 Acetaminophen (Tylenol 650 Mg/ 20 ml Liq) 650 mg Q6H PRN PO FEVER 12/01/16 17:30 12/02/16 01:07 Polyethylene Glycol (Miralax) 17 gm DAILY PO 12/04/16 09:00 01/09/17 09:22 Thiamine HCl (Vitamin B1) 100 mg DAILY PO 12/05/16 09:00 01/09/17 09:20 Multivitamins (Theragran) 1 tab DAILY PO 12/05/16 09:00 01/09/17 09:20 Folic Acid (Folate) 1 mg DAILY PO 12/05/16 09:00 Future Hold 12/25/16 08:07 Rifampin (Rifampin) 300 mg Q12HR PO 12/06/16 09:15 01/15/17 23:00 Future Hold 01/01/17 09:52 Lorazepam (Ativan Inj) 1 mg Q4H PRN IV PUSH ANXIETY AND/OR AGITATION 12/09/16 15:15 12/31/16 14:16 Atorvastatin Calcium (Lipitor) 40 mg HS PO 12/12/16 21:00 Future Hold 12/24/16 21:00 Sodium Chloride (NS Flush) See Protocol DAILY IV FLUSH 12/13/16 09:00 01/09/17 09:24 Heparin Sodium (Porcine) (Heparin Central Flush) See Protocol DAILY IV FLUSH 12/13/16 09:00 12/27/16 08:05 Sodium Chloride (NS Flush) UNSCH PRN IV FLUSH SEE PROTOCOL TABLE 12/12/16 17:00 12/19/16 01:59 Lorazepam (Ativan) 0.5 mg DAILY PRN PO ANXIETY 12/18/16 15:45 Future Hold 12/19/16 08:29 Diltiazem HCl (Cardizem) 90 mg Q6H PO 12/18/16 23:00 Future Hold 12/25/16 12:14 Oxycodone HCl (Roxicodone) 15 mg Q4H PRN PO PAIN 6-10 12/21/16 11:00 01/08/17 21:40 Digoxin (Lanoxin) 0.25 mg DAILY PO 12/22/16 09:00 Future Hold 12/25/16 08:06 Sucralfate (Carafate Liq) 1 gm ACHS PO 12/22/16 11:00 01/09/17 05:33 Metoprolol Tartrate (Lopressor Inj) 5 mg Q1HR PRN IV PUSH RAPID HEART RATE 12/22/16 09:45 12/30/16 10:37 Pantoprazole Sodium (Protonix Inj) 40 mg Q12H IV PUSH 12/22/16 10:00 01/09/17 09:21 Aspirin (Ecotrin Ec) 81 mg DAILY PO 12/23/16 09:00 Future Hold 12/25/16 08:06 Metoprolol Tartrate (Lopressor) 25 mg Q6HR PO 12/22/16 13:00 01/09/17 05:33 Magnesium Oxide (Mag-Ox) 800 mg UNSCH PRN PO For Magnesium 1.2 - 1.6 mg/dL 12/25/16 21:00 12/27/16 06:46 Potassium Chloride 100 ml @ 50 mls/hr Q2H PRN IV For Potassium 3.3 - 3.5 mEq/L 12/25/16 21:00 01/08/17 04:35 Potassium Chloride 100 ml @ 25 mls/hr UNSCH PRN IV For Potassium 3.3 - 3.5 mEq/L 12/25/16 21:00 01/04/17 06:32 Sodium Phosphate 30 mmol/Sodium Chloride 250 ml @ 42 mls/hr UNSCH PRN IV For Phosphorus < 2.5 mg/dL 12/25/16 21:00 12/30/16 06:49 Chlorhexidine Gluconate (Peridex 0.12% Liq) 15 ml BID@08,20 MT 12/26/16 08:00 01/08/17 19:50 Insulin Human Regular (NovoLIN R SUPPLEMENTAL SCALE) 1 Q6HR SQ 12/26/16 00:00 01/09/17 00:00 Albuterol/ Ipratropium (Duoneb Neb) 1 ampule Q2HR NEB PRN INH WHEEZING 12/25/16 21:00 01/02/17 19:29 Clopidogrel Bisulfate (Plavix) 75 mg DAILY PO 12/29/16 09:00 01/09/17 09:21 Aspirin (Ecotrin Ec) 162 mg DAILY PO 12/29/16 09:00 Future Hold 01/01/17 09:52 Prednisone (Deltasone) 5 mg DAILY PO 12/29/16 09:00 Future Hold 01/01/17 09:49 Levothyroxine Sodium (Synthroid) 50 mcg DAILY@06 PO 12/30/16 06:00 Future Hold 01/01/17 05:30 Chlorhexidine Gluconate (Peridex 0.12% Liq) 15 ml BID@08,20 MT 01/01/17 20:00 01/08/17 19:50 Aspirin (Aspirin Supp) 300 mg DAILY RECTAL 01/03/17 09:00 01/09/17 09:20 Levothyroxine Sodium (Synthroid Inj) 25 mcg DAILY@06 IV PUSH 01/04/17 06:00 01/09/17 05:33 Rifampin 300 mg/ Sodium Chloride 100 ml @ 100 mls/hr Q12H IV 01/03/17 10:00 01/15/17 09:59 01/08/17 21:12 Methylprednisolone Sodium Succinate (SoluMEDROL INJ) 20 mg DAILY IV PUSH 01/03/17 09:00 01/09/17 09:22 Multivitamins 10 ml/Folic Acid 1 mg/Amino Acids/ Electrolytes/ Dextrose 2,010.2 ml @ 60 mls/hr Q24H IV-CENTRAL 01/03/17 20:00 01/09/17 05:30 Artificial Tears (Tears Naturale Opth Soln) 1 drop Q8HR EACH EYE 01/04/17 14:00 01/08/17 21:13 Albuterol/ Ipratropium (Duoneb Neb) 1 ampule Q6HR NEB NEB 01/06/17 16:00 01/09/17 10:05 Insulin Detemir (Levemir Inj) 30 units Q12HR SQ 01/06/17 21:00 01/09/17 09:25 Furosemide (Lasix Inj) 20 mg Q12HR IV PUSH 01/06/17 21:00 01/09/17 09:20 Amiodarone HCl (Cordarone) 200 mg Q12HR PO 01/07/17 10:00 01/09/17 09:24 Cefazolin Sodium/ Dextrose 50 ml @ 100 mls/hr Q8H IV 01/07/17 17:00 01/15/17 16:59 01/09/17 09:23 Levofloxacin (Levaquin) 750 mg DAILY@1800 PO 01/07/17 18:00 01/14/17 17:59 01/08/17 17:02 Objective Remarks GENERAL: Older male sitting up in chair at bedside in no acute distress SKIN: Warm and dry. Cuong appearance HEAD: Normocephalic. EYES: No injection or drainage. NECK: Supple, trachea midline. CARDIOVASCULAR: + S1/S2, pericardial rub and murmur. RESPIRATORY: Clear posteriorly, diminished to the bases. On 4 L nasal cannula GASTROINTESTINAL: Abdomen nondistended. EXTREMITIES: No cyanosis. Edema worsened to the LLE. NEUROLOGICAL: A and O 3. Normal speech. Moving all extremities. Assessment/Plan Problem List: (1) Esophageal adenocarcinoma ICD Codes: C15.9 - Malignant neoplasm of esophagus, unspecified Status: Acute Plan: --EUS with esophageal stent placement on 12/25 --++hemoptysis --we plan to give weekly Erbitux and XRT outpatient. --patient had OP EGD with biopsy, pathology showed adenocarcinoma. --EGD/Colonoscopy, 11/20/16--showed long stricture in the mid esophagus and distal esophagus, multiple biopsies were performed Pathology revealed invasive adenocarcinoma- distal esophagus --XRT simulation done 12/19. (2) SCC (squamous cell carcinoma) ICD Codes: C44.92 - Squamous cell carcinoma of skin, unspecified Status: Acute Plan: --has a head and neck, lung malignancy which was locally advanced. --received definitive treatment with surgery. Post surgery he had positive margins and some poor risk features and he was about to get concurrent chemotherapy and radiation and adjuvantly to achieve local control of the disease --PET scan to stage his disease prior to treatment showed an esophageal mass (3) Normocytic anemia ICD Codes: D64.9 - Anemia, unspecified Status: Acute Plan: --hgb stable --transfuse packed red blood cells if his hemoglobin drops below 8.5 --s/p iron infusion (4) Afib ICD Codes: I48.91 - Unspecified atrial fibrillation Status: Acute Plan: --cardiology following. --s/p chest tube placement on 01/06. --on Plavix (on hold) --on ASA (5) Sepsis ICD Codes: A41.9 - Sepsis, unspecified organism Status: Resolved Plan: --BC 8.18: pending BC, 7.24 no growth BC, 12/07 no growth --BC, 12/05 +, S. Aureus --had removal of port, + S. aureus --on Cefepime (6) NSTEMI (non-ST elevated myocardial infarction) ICD Codes: I21.4 - Non-ST elevation (NSTEMI) myocardial infarction Status: Acute Plan: --had elevated troponin and ST-segment changes consistent with acute TX. 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 Also with a new diagnosis of early stage gastric cancer Plan 1. Obtain US L lower extremity to R/O DVT. 2. Per RN, his L sided chest tube was displaced a short time ago; will get CXR. 3. Continue calorie count, Glucerna supplements 4. Await physical improvement until patient can tolerate chemo. Attending Statement The exam, history, and the medical decision-making described in the above note were completed with the assistance of the mid-level provider. I reviewed and agree with the findings presented. I attest that I had a [id number] encounter with the patient on the same day, and personally performed and documented my assessment and findings in the medical record f/u chest x-ray and US complicated patient with multiple issues o/n events reviewed terra rn Problem Qualifiers (1) Afib: (2) Sepsis: Shey Flores Jan 09, 2017 11:36 Brant Bell MD Jan 09, 2017 22:29
--- NOTE | 2017-01-09 12:05 | RADRPT ---
EXAM DATE/TIME: 01/09/2017 11:25 [facility] COMPARISON: CHEST SINGLE AP, January 07, 2017, 4:10. INDICATIONS : Short of breath, evaluate right chest tube. Left chest tube removed MEDICAL HISTORY : Chronic obstructive pulmonary disease. Hypertension Diabetes mellitus type II. hepatitis C SURGICAL HISTORY : Appendectomy. Coronary artery stent. ENCOUNTER: Subsequent ACUITY: 1 month PAIN SCORE: Non-responsive. LOCATION: Bilateral chest FINDINGS: Portable upright expiratory view the chest demonstrates a normal-sized cardiac silhouette. Left upper extremity PICC and right chest tube remain present. Left chest tube has been removed. No pneumothora x is identified. There is stable left basilar pleural-parenchymal opacity and a stable right lower layla ng zone patchy airspace consolidation. Some type of stent overlies the heart, possibly an esophageal stent. CONCLUSION: 1. Left chest tube has been removed and no pneumothorax is visualized. There is stable left basilar o pacity likely representing pleural fluid with associated volume loss and/or consolidation. 2. Right chest tube in stable position without pneumothorax or pleural fluid filled visualized. There is stable right lower lung zone airspace consolidation. Washington Marroquin MD on January 09, 2017 at 12:02 Board Certified Radiologist. This report was verified electronically.
[2017-01-09] MEDS: RIFAMPIN INJ 300 MG in SODIUM CHLORIDE 0.9% INJ 100 ML IV SCH ×2 (12:28→21:26)
--- NOTE | 2017-01-09 13:48 | HHI.HCPN ---
Reason for visit a. To assist with evaluation and management of symptoms including: Pain, shortness of breath and debility. b. To assist medical decision maker(s) with: better understanding of current medical conditions; weighing benefits/burdens of medical treatment options; making medical treatment decisions. . Subjective/Interval History Mr. 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 Clinical course complicated by NSTEMI, patient underwent PCI with bare metal stents on 11/30/16. Clinical course further complicated by persistent fever, MSSA bacteremia, worsening sepsis, A. fib with RVR and persistent respiratory failure. Clinical course complicated by hypoxemic respiratory failure required intubation and mechanical ventilation and cardiac tamponade requiring pericardiocentesis on 01/01/17. Patient seen in ICU. Resting in bed in no acute distress. Alert and oriented X self, place and situation. Participating in physical therapy, was out of bed today sitting in recliner chair for most of the morning. Patient endorsing generalized weakness, feels that respiratory condition has improved. Left sided chest tube removed this morning. Ongoing calorie count at this time, patient on mechanical soft diet in addition to Glucerna. GI following, planned to wean TPN once caloric needs are met. Worsening left lower extremity edema, pending ultrasound to rule out DVT. Patient remains on O2 via nasal cannula at 4 L, oxygen saturation. Stable hemodynamically. Afebrile. Chest x-ray today revealing stable right lower airspace consolidation. Conversation with patient. Goals of care remain unchanged. Patient has completed living will listing limitations of treatment to include NO tracheostomy. Patient wishing to remain full code, goal of therapy is to allow time for clinical improvement. Likely to discharge to rehabilitation for physical straightening. Patient looking forward to starting chemotherapy once clinically stable and performance status has improved. Case discussed with bedside RN. . Family/friend interactions No family at bedside. . Advance Directives Living Will: Copy in medical record Health Care Surrogate: Copy in medical record Durable Power of Hypoid Gear Tester: Never completed Advance Directive Specifics Date completed: 12/25/16. . Health Care Surrogate(s): Patient designated his daughter Mena La AND girlfriend Luly Bautista as co- healthcare surrogate decision makers. . Documented care wishes: Living will with standard verbiage as it pertains to persistent vegetative state. Additional limitation to treatment is NO tracheostomy. . Significant change in goals: Goals of care remain unchanged. . Objective Vital Signs Date Time Temp Pulse Resp B/P (MAP) Pulse Ox O2 Delivery O2 Flow Rate FiO2 01/09/17 10:05 97 Nasal Cannula 4.00 01/09/17 04:00 98.4 72 25 163/69 (100) 92 01/09/17 04:00 92 01/09/17 02:00 86 01/09/17 00:00 98.5 91 25 148/67 (94) 93 01/09/17 00:00 91 01/08/17 22:40 24 01/08/17 22:00 82 01/08/17 20:00 82 01/08/17 20:00 93 Nasal Cannula 3.00 01/08/17 20:00 98.6 82 26 129/60 (83) 93 01/08/17 18:00 83 01/08/17 16:00 89 01/08/17 16:00 98.7 88 21 126/63 (84) 96 01/08/17 14:00 88 Physical Exam CONSTITUTIONAL/GENERAL: This is an adequately nourished patient in no acute distress. TUBES/LINES/DRAINS: PICC line to PIYUSH, SCDs, Saxena catheter. PIV's, right sided chest tube. SKIN: No jaundice, rashes, or lesions. Scattered ecchymosis to upper extremities. Skin temperature appropriate. Not diaphoretic. HEAD: Atraumatic. Normocephalic. EYES: Pupils equal and round and reactive. Nonicteric. ENT: Hearing appears normal. Nose without bleeding or purulent drainage. Moist oral mucosa. NECK: Trachea midline. Supple. CARDIOVASCULAR: Regular rate and rhythm, systolic murmur. Edema to bilateral upper and lower extremities. Left lower extremity > right lower extremity. RESPIRATORY/CHEST: Symmetric. Clear breath sounds bilaterally. O2 via nasal cannula at 4 L. GASTROINTESTINAL: Abdomen soft, round. bowel sounds present. GENITOURINARY: Without palpable bladder distension. Saxena catheter intact to bedside drainage. MUSCULOSKELETAL: Moving all extremities independently. NEUROLOGICAL: Alert and oriented x self, place and situation. Able to communicate needs. PSYCHIATRIC: Calm. . Diagnostic Tests Laboratory Laboratory Tests Test 01/06/17 15:40 01/07/17 03:15 01/07/17 23:45 01/08/17 12:45 Blood Gas Puncture Site RT RADIAL Blood Gas Patient Temperature 98.6 Blood Gas HCO3 29 mmol/L (22-26) Blood Gas Base Excess 4.2 mmol/L (-2-2) Blood Gas Oxygen Saturation 92 % (90-100) Arterial Blood pH 7.38 (7.380-7.420) Arterial Blood Partial Pressure CO2 50 mmHg (38-42) Arterial Blood Partial Pressure O2 75 mmHg (61-120) Arterial Blood Oxygen Content 11.9 Vol % (12.0-20.0) Arterial Blood Carboxyhemoglobin 1.9 % (0-4) Arterial Blood Methemoglobin 0.7 % (0-2) Blood Gas Hemoglobin 9.1 G/DL (12.0-16.0) Blood Gas Ventilator Setting CPAP 5/5 Blood Gas Inspired Oxygen 35 % White Blood Count 8.0 TH/MM3 (4.0-11.0) Red Blood Count 2.87 MIL/MM3 (4.50-5.90) Hemoglobin 8.1 GM/DL (13.0-17.0) Hematocrit 25.7 % (39.0-51.0) Mean Corpuscular Volume 89.3 FL (80.0-100.0) Mean Corpuscular Hemoglobin 28.2 PG (27.0-34.0) Mean Corpuscular Hemoglobin Concent 31.6 % (32.0-36.0) Red Cell Distribution Width 19.6 % (11.6-17.2) Platelet Count 211 TH/MM3 (150-450) Mean Platelet Volume 8.3 FL (7.0-11.0) Neutrophils (%) (Auto) 84.0 % (16.0-70.0) Lymphocytes (%) (Auto) 8.1 % (9.0-44.0) Monocytes (%) (Auto) 6.6 % (0.0-8.0) Eosinophils (%) (Auto) 0.4 % (0.0-4.0) Basophils (%) (Auto) 0.9 % (0.0-2.0) Neutrophils # (Auto) 6.8 TH/MM3 (1.8-7.7) Lymphocytes # (Auto) 0.6 TH/MM3 (1.0-4.8) Monocytes # (Auto) 0.5 TH/MM3 (0-0.9) Eosinophils # (Auto) 0.0 TH/MM3 (0-0.4) Basophils # (Auto) 0.1 TH/MM3 (0-0.2) CBC Comment DIFF FINAL Differential Comment Blood Urea Nitrogen 12 MG/DL (7-18) Creatinine 0.57 MG/DL (0.60-1.30) Random Glucose 248 MG/DL (74-106) Total Protein 5.7 GM/DL (6.4-8.2) Albumin 1.8 GM/DL (3.4-5.0) Calcium Level 7.6 MG/DL (8.5-10.1) Magnesium Level 1.6 MG/DL (1.5-2.5) Alkaline Phosphatase 77 U/L (45-117) Aspartate Amino Transf (AST/SGOT) 14 U/L (15-37) Alanine Aminotransferase (ALT/SGPT) 11 U/L (12-78) Total Bilirubin 0.5 MG/DL (0.2-1.0) Sodium Level 138 MEQ/L (136-145) Potassium Level 3.5 MEQ/L (3.5-5.1) 3.4 MEQ/L (3.5-5.1) 3.7 MEQ/L (3.5-5.1) Chloride Level 101 MEQ/L (98-107) Carbon Dioxide Level 32.4 MEQ/L (21.0-32.0) Anion Gap 5 MEQ/L (5-15) Estimat Glomerular Filtration Rate 146 ML/MIN (>89) Test 01/09/17 05:15 White Blood Count 9.4 TH/MM3 (4.0-11.0) Red Blood Count 3.51 MIL/MM3 (4.50-5.90) Hemoglobin 9.9 GM/DL (13.0-17.0) Hematocrit 30.6 % (39.0-51.0) Mean Corpuscular Volume 87.1 FL (80.0-100.0) Mean Corpuscular Hemoglobin 28.2 PG (27.0-34.0) Mean Corpuscular Hemoglobin Concent 32.4 % (32.0-36.0) Red Cell Distribution Width 19.5 % (11.6-17.2) Platelet Count 191 TH/MM3 (150-450) Mean Platelet Volume 8.6 FL (7.0-11.0) Neutrophils (%) (Auto) 84.4 % (16.0-70.0) Lymphocytes (%) (Auto) 7.3 % (9.0-44.0) Monocytes (%) (Auto) 7.3 % (0.0-8.0) Eosinophils (%) (Auto) 0.7 % (0.0-4.0) Basophils (%) (Auto) 0.3 % (0.0-2.0) Neutrophils # (Auto) 7.9 TH/MM3 (1.8-7.7) Lymphocytes # (Auto) 0.7 TH/MM3 (1.0-4.8) Monocytes # (Auto) 0.7 TH/MM3 (0-0.9) Eosinophils # (Auto) 0.1 TH/MM3 (0-0.4) Basophils # (Auto) 0.0 TH/MM3 (0-0.2) CBC Comment DIFF FINAL Differential Comment Blood Urea Nitrogen 16 MG/DL (7-18) Creatinine 0.46 MG/DL (0.60-1.30) Random Glucose 172 MG/DL (74-106) Calcium Level 7.5 MG/DL (8.5-10.1) Sodium Level 135 MEQ/L (136-145) Potassium Level 3.6 MEQ/L (3.5-5.1) Chloride Level 97 MEQ/L (98-107) Carbon Dioxide Level 31.0 MEQ/L (21.0-32.0) Anion Gap 7 MEQ/L (5-15) Estimat Glomerular Filtration Rate 187 ML/MIN (>89) Result Diagram: 01/09/17 0515 01/09/17 0515 Procedures 11/30/16 - he underwent left and right heart catheterization with the following findings: RCA-dominant, 10% lesion mid. PDA-patent with TALI III flow. LM-no significant obstructive lesions. LAD-transapical, no significant obstructive lesions. Diagonal-70% lesion ostial, small vessel. Left circumflex-proximal clot thrombus, TALI II flow with 2 OM branches, both patent. Procedure-PCI/BMS to proximal left circumflex in setting of NSTEMI. No left ventriculogram done due to concern for renal function. EF by echocardiogram 12/01/16 was 50-55%, mild concentric left ventricular hypertrophy, normal right ventricular size and function, no significant valvular disease, pulmonary hypertension or effusion noted. This was reexamined 87 due to concern for possible pericardial infusion. Findings included dynamic "pseudo-" outflow tract obstructive physiology due to concentric hypertrophy and hyperdynamic systolic function with mild mitral regurgitation, mild aortic valve regurgitation and small to moderate pericardial effusion, not hemodynamically significant. 12/02/16-left axillary arterial line placement. 12/02/16-intubation. 12/02/16 left subclavian central line placement. 12/02/1682-Fippsb-b-Port removal secondary to sepsis. 12/25/16-EUS followed by an EGD with esophageal stent placement 12/25/16-reintubation 12/25/16-arterial line placement 12/26/16 -extubation 01/01/17 -pericardiocentesis 01/01/17 -left-sided chest tube placement 01/01/17 -reintubation 01/06/17 -medical extubation 01/06/17 -removal of pericardial drainage 01/06/17 -right sided chest tube placement 01/09/17 -removal of left chest tube . . Assessment and Plan Disease Oriented Problem List: (1) Respiratory failure (2) Edema (3) Esophageal carcinoma (4) SCC (squamous cell carcinoma) (5) NSTEMI (non-ST elevated myocardial infarction) (6) Atrial fibrillation with RVR (7) Physical deconditioning Symptom Scale: (1) Shortness of breath 0-10 Scale: Unable to quantify Comment: Persistent respiratory failure, medically extubated 01/06/17. Currently tolerating O2 via nasal cannula at 4 L. (2) Pain 0-10 Scale: Unable to quantify Comment: Oxycodone PRN available. (3) Debility 0-10 Scale: Unable to quantify Comment: Progressive, secondary to acute illness and prolonged hospitalization. (4) Edema 0-10 Scale: Unable to quantify Pertinent Non-Medical Issues Psychosocial:This is a 61-year-old male that was born in [place], [place] and moved to [place] when he was 15. He never attended high school after he moved to [place] nor obtained his GED. 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 He was never in the . Spiritual: No spiritual affiliation. Legal: Has designated his daughter Ben La and his girlfriend Luly Bautista as joint healthcare surrogates. Ethical issues impacting care: None noted. . Important Contacts Daughter-Ben La Significant other-Luly Bautista , Mother-Orly Sky (Amauri), [place], [place] . Prognosis Mr. 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 Clinical course complicated by NSTEMI, patient underwent PCI with bare metal stents on 11/30/16. Clinical course further complicated by persistent fever, MSSA bacteremia, worsening sepsis, A. fib with RVR and persistent respiratory failure. Patient underwent EGD with esophageal stent placement on 12/25/16, complicated by significant bleeding from distal esophagus, in addition to persistent respiratory failure. Patient at a very high risk for further complications, continue decline and . . Code Status: Full Code Plan * CODE STATUS: Full code. CODE STATUS will readdress 01/09/17, Patient electing full code. * HEALTHCARE DECISION-MAKING: Patient participating in medical decision-making. Fair insight into his clinical issues and high risk for further decline. Patient has designated his daughter Mena La AND girlfriend Luly Plunkett as co-healthcare surrogate decision makers. * GOALS OF CARE: 01/09/17. Patient electing to continue aggressive management short of NO tracheostomy. Living will completed, same sent to HIM for scanning. As per patient, goal of therapy is to allow time for clinical improvement. Likely to discharge to rehabilitation for physical straightening. Patient looking forward to starting chemotherapy once clinically stable and performance status has improved * SYMPTOMS: = Shortness of breath, secondary to persistent respiratory failure. Medically extubated 01/06/17, currently tolerating O2 via nasal cannula at 4 L. = Pain, multifactorial. Likely secondary to multiple procedures, prolonged hospitalization, bedrest. Oxycodone 15 mg Q4h PRN available as needed. = Debility, secondary to acute illness and prolonged hospitalization. Will likely require rehabilitation upon discharge. * Case discussed with bedside RN. * Palliative care contact information has been provided to patient and family. * Palliative care will continue to follow-up for further clarifications of goals of care as patient's clinical course continues to evolve. . Time Spent Total Floor Time (mins): 32 (Total time to include review of medical records, physical exam, goals of care conversation with patient and assistance with completion of living will. Case discussion with RN.) >50% Counseling/Coord of Care: Yes Attestation To help prompt me to consider important information that might be impacting today's encounter and assessment, information from prior notes written by myself or my colleagues may have been "brought forward" into today's note. My signature on this note, however, is an attestation that I personally performed the exam, history, and/or decision-making noted today, and, unless otherwise indicated, the interactions with patient, family, and staff as well as the review of records all occurred today. I also attest that the listed assessment and stated plan reflect my best clinical judgment today based on the combination of historical information, prior notes, and today's exam/ interactions. When time spent is documented, it refers only to time spent today by the signer, or if indicated, combined time spent today by collaborating physician/nurse practitioner. Ida Alston Jan 09, 2017 13:48
--- NOTE | 2017-01-09 14:27 | RADRPT ---
EXAM DATE/TIME: 01/09/2017 13:01 [facility] COMPARISON: No previous studies available for comparison. INDICATIONS : Left leg swelling. MEDICAL HISTORY : Hypertension. Hypercholesterolemia. CAD. Hepatitis C. SURGICAL HISTORY : Appendectomy. ENCOUNTER: Initial ACUITY: 1 day PAIN SCORE: 4/10 LOCATION: Left leg. TECHNIQUE: Venous ultrasound of the leg was performed from the inguinal ligament to the proximal calf. Real-jess e, color Doppler and spectral tracing, compression and augmentation techniques were used. FINDINGS: There is normal compressibility of the deep venous system from the inguinal region to the proximal ca lf. No echogenic clot is seen in the lumen of the common femoral, femoral, popliteal, and posterior tibial veins. There is a normal response of the venous system to proximal and distal augmentation an d respiration. CONCLUSION: No DVT is identified within the left lower extremity. Washington Marroquin MD on January 09, 2017 at 14:25 Board Certified Radiologist. This report was verified electronically.
--- NOTE | 2017-01-09 16:20 | HHI.CCPN ---
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 He was hypotensive, febrile up to 101 and received IV fluid resuscitation with improvement in his blood pressure. EKG showed ST-T wave changes, and troponin was elevated and peaked at 17.1. The patient has been evaluated by cardiology. For NSTEMI patient underwent PCI with bare metal stent to LCx by Dr. Krause on 11/30/16. The patient had a CT of the abdomen and pelvis on admission which showed marked soft tissue thickening in the distal esophagus concerning for esophageal cancer. The patient was also noted to have liver cirrhosis and mild splenomegaly. Patient has a history of alcohol intake but according to the girlfriend has not had alcoholic drinks for several months. CTA no evidence of pulmonary embolism or pneumonia. Critical care was consulted today for altered mentation, persistent fever, MSSA bacteremia and worsening sepsis. Apparently patient was agitated overnight requiring restraints. He also sustained a fall when he tried to climb out of the bed. CT of the head was negative except for a possible artifact left temporal region. An MRI which was done today came back negative. On my evaluation the ICU patient was very lethargic and tachypneic breathing approximately 35-40. ABG showed respiratory alkalosis. His altered mentation is most likely secondary to severe sepsis, alcohol withdrawal seems less likely. Blood cultures 4/4 growing MSSA, lactic acid 3,6. 12/25: Today underwent EGD with esophageal stent placement. significant bleeding from distal esophagus. GI and anesthesia felt patient should remain intubated for airway protection. In addition, patient persistently hypotensive requiring vasopressors, phenylephrine at 100 mcg/min, and in a flutter RVR on diltiazem drip. On my evaluation, patient was becoming more unstable. Adenosine 6mg iv x 1 was given which confirmed the rhythm as a flutter, but did not convert patient. give that patient was not anticoagulated, risk/benefit of electrical cardioversion at that time was in favor of conservative measures. patient bolused with amiodarone and placed on amiodarone drip, along with aggressive electrolyte replacement. Of note, patient also has new documented diagnosis of dynamic LVOT obstruction due to his LV hypertrophy and hyperdynamic cardiac function. Critical care medicine re-consulted to evaluate and manage his respiratory failure and cardiac dysrhythmias. 12/26: No more bleeding. Will work to extubate and start liquids, continue oral meds, especially beta gutierrez. 12/29: Reconsulted due to A. fib with RVR. Currently on 5 L simple mask. On amiodarone and Cardizem drips. Looks like some pulmonary edema will be actively diuresed. 12/30: Remains in A. fib with RVR. Currently on 10 L simple mask. Continues on amiodarone drip at 0.5 mg per minute and Cardizem drip at 20 mg an hour. Despite diuresis, increasing oxygen requirements. 12/31: Good response to diuresis. Weight still up about 10 kg. Dense infiltrate right chest, increasing FiO2 requirements. 01/01: Continued respiratory failure. FiO2 70% in tight BiPAP with sats 88%. Labored respirations and poor peripheral perfusion. Will need left effusion and pericardium tapped. I predict problems with hypotension if we use sedation - will start neosynephrine then induce. I have discussed the risks of pericardiocentesis and thoracentesis in detail with the patient, especially increased arrhythmia risk, possibly fatal. 01/02: Resting comfortable in bed. FiO2 40%. Arousable and follows commands. Status post pericardiocentesis yesterday. 20 cc past 24 hours. 01/03: Tmax 99.8. FiO2 down to 35%. Remains on Oziel-Synephrine at 70 g per minute. Currently normal sinus rhythm. Will attempt thoracentesis left side today permission obtainable with possible attempt at extubation soon. Initiating TPN for nutrition. 01/04: Resting comfortable in bed. Currently afebrile. #10 Persian pigtail catheter placed left pleural effusion yesterday. -210 cc overnight. No bowel movement 5 days. Relistor, and enema provided today. Nurse states that that patient possible seizure. CT head/EEG ordered for today. 01/05: Remains intubated sedated. L pigtail with 1.5 L output since yesterday. EEG normal- no sz. Ct head negative. Cytology from Pericardial fluid pending. Will await cytology prior to deciding on CTS consult for pericardial window Subjective 01/06: On minimal sedation. Remains on Amiodarone, Cardizem gtt. On oziel- synephrine to keep MAP >65. Pericardial drain with only minimal out put-will remove drain today. Bedside echo today. Additional Lasix and 1 dose of Diamox ordered for fluid overload 01/07: Extubated yesterday, tolerating reasonably well. good O2 sats on 4L NC. UO 5L in 24 hours, Aftab CT with 2.5 L in 24 hours. Afib rate . Will switch to PO Amiodarone. Swallow eval today. Limited 2D Echo. Pericardial drain removed yesterday 01/07. 01/08: Breathing with acceptable comfort after extubation about 40 hours ago. Pericardial drain out. Serous drainage persists right chest tube. Pericardial fluid negative for malignant cells despite bloody content. 01/09: Up in chair, frail. Left chest tube accidentally removed/dislodged. CXR OK, infiltrates persist. US legs no DVT. Objective Vital Signs Date Time Temp Pulse Resp B/P (MAP) Pulse Ox O2 Delivery O2 Flow Rate FiO2 01/09/17 12:00 98.4 87 21 126/65 (85) 95 01/09/17 10:05 Nasal Cannula 4.00 01/06/17 14:40 35 Result Diagram: 01/09/17 0515 01/09/17 0515 Imaging Last Impressions Chest X-Ray 01/03/17 1334 Signed Impressions: Service Date/Time: Tuesday, January 03, 2017 13:42 - CONCLUSION: Stable chest. Pericardial drain. Left-sided chest tube without pneumothorax. Jagjit Tapia MD CT Angiography 12/31/16 0000 Signed Impressions: Service Date/Time: Saturday, December 31, 2016 01:00 - CONCLUSION: 1. Study is negative for pulmonary embolism. 2. Pericardial effusion, diffuse patchy consolidation in both lungs, collapse left lower lobe, bilateral pleural effusions, esophageal stent, similar to yesterday's CT thorax. Kulwant Gupta MD Thoracentesis 12/30/16 0000 Signed Impressions: Service Date/Time: Friday, December 30, 2016 15:34 - CONCLUSION: Uncomplicated CT-guided thoracentesis. Kiran Harding MD Chest CT 12/29/16 Signed Impressions: Service Date/Time: Friday, December 30, 2016 10:56 - CONCLUSION: 1. Moderate bilateral pleural effusions. 2. Areas of consolidation in the upper lobes bilaterally and in the right middle and right lower lobe. There is some combination of consolidation and atelectasis seen in the left lower lobe. Underlying diffuse processes should be considered including edema. 3. Esophageal stent in place. There is increased density within the stent which could be from fluid or soft tissue. 4. Non-specific mildly prominent lymph nodes in the mediastinum. 5. Moderate pericardial effusion. 6. Possible 3rd non-displaced right rib fracture. Washington Chou MD GI Procedure 12/25/16 Signed Impressions: Service Date/Time: December 19:33 - CONCLUSION: Spot film as above. Everett Pollock MD FACR Barium Swallow X-Ray 12/20/16 Signed Impressions: Service Date/Time: Tuesday, December 20, 2016 13:15 - CONCLUSION: 1. The distal half of the esophagus demonstrates irregular luminal narrowing consistent with the patient's history of esophageal adenocarcinoma. 2. Mild dilatation of the esophagus immediately proximal to the esophageal mass. However, there are no signs of obstruction. 3. Small hiatal hernia. Washington Marroquin MD Abdomen MRI 12/17/16 Signed Impressions: Service Date/Time: Saturday, December 17, 2016 13:59 - CONCLUSION: 1. No acute finding is identified to explain the abdominal pain. 2. Stable thickening of the distal esophagus. There is a single mildly enlarged left gastric lymph node measuring 12 x 10 mm. 3. Moderate sized bilateral pleural effusions, left larger than right, with associated compressive atelectasis. Washington Marroquin MD Head CT 12/01/16 Signed Impressions: Service Date/Time: Thursday, December 01, 2016 07:59 - CONCLUSION: 1. Questionable area of low attenuation left temporal lobe could be artifact versus less likely infarct. MRI may be warranted based on clinical history. 2. No midline shift or mass effect. 3. No intraparenchymal hemorrhage. Jagjit Tapia MD Brain MRI 12/01/16 Signed Impressions: Service Date/Time: Thursday, December 01, 2016 12:07 - CONCLUSION: Normal examination. Barrett Rodriguez MD Abdomen X-Ray 12/01/16 0000 Signed Impressions: Service Date/Time: Thursday, December 01, 2016 16:48 - CONCLUSION: No evidence of obstruction. Feeding tube tip in the distal stomach. Barrett Rodriguez MD Abdomen/Pelvis CT 11/29/16 2356 Signed Impressions: Service Date/Time: Wednesday, November 30, 2016 01:35 - CONCLUSION: 1. Markedly abnormal appearance of the distal esophagus consistent with the history of esophageal carcinoma. 2. Atherosclerotic calcifications of the aorta and iliac vessels. 3. Cirrhotic appearance to the liver with a mildly nodular contour present. Erik Simon MD Objective Remarks GENERAL: Patient is 61 yo male, currently on 4L NC SKIN: Warm and dry. HEAD: Normocephalic. EYES: No scleral icterus. No injection or drainage. MOUTH: No bleeding. Moist membranes. NECK: trachea midline. No JVD. No thrush CARDIOVASCULAR: Currently normal sinus rhythm. S1, S2 no S4. Pericardial rub+. Systolic and diastolic murmur in all areas. RESPIRATORY: Diminished breath sounds bases. Persistent crackles appreciated. Aftab pigtail catheters GASTROINTESTINAL: Abdomen soft, non-tender, nondistended. BS active. MUSCULOSKELETAL: Trace bilateral lower extremity peripheral edema. Single lumen PICC line in left upper extremity. Neuro: Awake alert, following commands currently. Off all sedation. Very weak. Procedures central line/ arterial line placement intubation cardiac catheterization port removal EUS with esophageal stent placement A/P Assessment and Plan NEURO/Psych: Acute metabolic encephalopathy-improving Possible alcohol withdrawal Chronic oxycodone use Encephalopathy most likely secondary to hypoxia, sepsis, now resolved Completed therapy with Thiamine, MVI for EtOH withdrawal. Acetaminophen for fever Currently off all sedation. Oxycodone for pain management 5-10 every 4 hours when necessary Holding tramadol/home medication RESP: Acute hypoxemic respiratory failure - multifactorial History COPD Anterior airway Tobacco abuse Bilateral pleural effusions - Emergently intubated and placed on mechanical ventilation 12/02/16, extubated successfully 12/03/16, (Intubated with GlideScope #4 blade Grade 2 view, easy intubation) - Re intubated 01/01/17 PRVC ventilation 16/550/1/35. Extubated 01/06 - Ventilator bundle. DuoNeb every 6 hours scheduled and every 2 hours when necessary - CT chest revealed bilateral pleural effusions. Thoracentesis -1200 cc 12/30. Placement of Left #10 Persian pigtail catheter 01/03. -40 cm, 310 ml output in 24 hours Placement of right #10 Persian pigtail catheter 01/06. -40 cm, 2100 ml output in 24 hour CV: Pericardial effusion, tamponade status post pericardiocentesis 01/01/17 Atrial fibrillation with RVR currently normal sinus rhythm NSTEMI Dynamic LVOT obstruction Coronary artery disease status post bare metal stent to left circumflex Krause 12/01 Emergency Pericardiocentesis drains -01/01. Cc. Cultures no growth. Removed drain 01/06, check follow up limited Echo Cardiac catheterization 12/01 revealed EF around 60%. Left main normal. RCA normal. LAD 70% ostial. Bare stent left circumflex 70%. Continue ASA 162 mg daily (300 mg IA while nothing by mouth)/Plavix 75 mg daily Currently on amiodarone drip at 0.5 mg/m, change to PO. resume Metoprolol 25 mill grams every 6 hours (metoprolol was held secondary to no oral intake) 2-D echo no veg, EF 50-55%. Mild MR, mild AR. Pseudo-on flow obstruction due to concentric hypertrophy and hyperdynamic ventricle Holding home medications of losartan 100 mg, amlodipine 10 mg daily. On atorvastatin 40 by mouth daily for dyslipidemia when able to swallow Cytology, negative for malignancy GI: Invasive adenocarcinoma of the esophagus Liver cirrhosis - Swallow eval today- diet per speech cleared by GI - Has biopsy proven invasive adenocarcinoma of esophagus - Status post EUS/esophageal stent placement 12/25 - IV Protonix for twice a day continue. Carafate cannot be given secondary to the pass NG tube - TPN goal 60 cc an hour -wean slowly with increasing PO intake - Surgery/Dr. Rich is following. : Acute kidney failure/ATN resolved - Monitor renal function closely. Saxena catheter. -On Lasix 20 IV BID, additional 40 MG VIx1 today Follow BMP in a.m. ID: Septic shock-resolved MSSA bacteremia [id number] infection status post removal Pseudomonas pneumonia - Previously Rapid clinical improvement after [id number] was removed remains off all pressors - Catheter tip culture blood culture and wound culture also positive for MSSA - Continue Rifampin, for synergy, and Cefepime antipseudomonal dosing He will need 6 weeks IV Abx - Infectious disease Dr. Nassar. 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 Bell is following - Status post surgical resection for L parotid SCC at [facility] 10/01 --Hematology plans to give weekly Erbitux and XRT outpatient. Transfuse goal hemoglobin greater than 8 ENDO: Hypokalemia Hypo-magnesium Diabetes Hypothyroidism Chronic prednisone use - Electrolyte replacement per protocol - SSI every 6 hours with detemir 30 units every 12 hours, Continue TPN. Holding home medications of metformin 1000 mg twice a day and glipizide 20 mill grams by mouth twice a day - Continue thyroid supplementation with levothyroxine 50 mg daily/home medication *(25 g IV daily while nothing by mouth) . TSH 0.555 on admission Continue Solu-Medrol 20 mg IV daily PROPH: - Bilateral lower extremity SCDs. No pharmacological prophylaxis secondary to hemoptysis - Pantoprazole 40 iv twice a day Overall impression: Very ill, severely debilitated man with depleted nutritional status and marginal respiratory function. Some improvement overnight. Freddy Bueno MD Jan 09, 2017 16:20
[2017-01-09] MEDS: LEVOFLOXACIN 750 MG TAB PO SCH (19:02)
[2017-01-10] VITALS (14 sets, daily range): BP systolic 117–132; BP diastolic 52–62; PULSE 75–90; RESP 21–25; TEMP 98.1–99.8; O2SAT 96–100
[2017-01-10] MEDS: ceFAZolin 2 GM PREMIX 50 ML IV SCH ×3 (02:18→16:07)
[2017-01-10] MEDS: METOPROLOL TARTRATE 25 MG TAB PO SCH ×4 (02:18→16:56)
[2017-01-10] MEDS: RESP: ALBUTEROL 2.5 MG/IPRATROPIUM 0.5 MG NEB (SCH) NEB ×4 (04:02→21:35)
[2017-01-10 04:56] LABS: AUTOMATED NEUTROPHIL # 5.3 TH/MM3 (1.8-7.7); BASOPHIL % 0.6 % (0.0-2.0); EOSINOPHIL # 0.1 TH/MM3 (0-0.4); EOSINOPHIL % 1.8 % (0.0-4.0); HEMATOCRIT 28.9 % (39.0-51.0); HEMO FLAGS DIFF FINAL; LYMPH % 13.9 % (9.0-44.0); MEAN CELL VOLUME 87.1 FL (80.0-100.0); MEAN CORPUSCULAR HEMOGLOBIN 28.5 PG (27.0-34.0); MEAN CORPUSCULAR HGB CONC 32.7 % (32.0-36.0); MONO % 8.9 % (0.0-8.0); NEUT % 74.8 % (16.0-70.0); PLATELET COUNT 178 TH/MM3 (150-450); RED BLOOD COUNT 3.32 MIL/MM3 (4.50-5.90); RED CELL DISTRIBUTION WIDTH 19.7 % (11.6-17.2)
[2017-01-10 05:14] LABS: BICARBONATE 31.7 MEQ/L (21.0-32.0); POTASSIUM 3.7 MEQ/L (3.5-5.1)
[2017-01-10] MEDS: INSULIN NovoLIN REGULAR SUPPLEMENTAL SCALE SQ SCH ×3 (06:00→12:27)
[2017-01-10] MEDS: ARTIFICIAL TEARS OPTH SOLN 15 ML BTL EACH EYE SCH ×3 (06:00→22:25)
[2017-01-10] MEDS: LEVOTHYROXINE SODIUM 100 MCG VIAL IV PUSH SCH (06:45)
[2017-01-10] MEDS: SUCRALFATE 1 GM/10 ML CUP PO SCH ×4 (06:45→22:24)
[2017-01-10] MEDS: CHLORHEXIDINE 0.12% (ORAL KIT) 15 ML CUP MT SCH ×4 (08:00→20:00)
[2017-01-10] MEDS: POLYETHYLENE GLYCOL 17 GM PKG PO SCH (08:45)
[2017-01-10] MEDS: AMIODARONE 200 MG TAB PO SCH ×2 (08:45→22:24)
[2017-01-10] MEDS: methylPREDNISolone SOD SUCC 40 MG/1 ML VIAL IV PUSH SCH (08:46)
[2017-01-10] MEDS: PANTOPRAZOLE SODIUM 40 MG VIAL IV PUSH SCH ×2 (08:47→22:03)
[2017-01-10] MEDS: INSULIN DETEMIR 100 UNITS/ML VIAL SQ SCH ×2 (08:50→22:00)
[2017-01-10] MEDS: FUROSEMIDE 20 MG/2 ML VIAL IV PUSH SCH ×2 (08:50→22:03)
[2017-01-10] MEDS: CLOPIDOGREL 75 MG TAB PO SCH (08:52)
[2017-01-10] MEDS: MULTIVITAMIN TAB PO SCH (08:52)
[2017-01-10] MEDS: DOCUSATE SODIUM 50 MG/SENNA 8.6 MG TAB PO SCH ×2 (08:52→21:00)
[2017-01-10] MEDS: SODIUM CHLORIDE 0.9% FLUSH 10 ML FLUSH IV FLUSH SCH ×3 (08:53→22:25)
[2017-01-10] MEDS: ASPIRIN 300 MG SUPP RECTAL SCH (09:00)
[2017-01-10] MEDS: THIAMINE HCL 100 MG TAB PO SCH (11:07)
[2017-01-10] MEDS: RIFAMPIN INJ 300 MG in SODIUM CHLORIDE 0.9% INJ 100 ML IV SCH (12:28)
--- NOTE | 2017-01-10 12:31 | HHI.CCPN ---
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 He was hypotensive, febrile up to 101 and received IV fluid resuscitation with improvement in his blood pressure. EKG showed ST-T wave changes, and troponin was elevated and peaked at 17.1. The patient has been evaluated by cardiology. For NSTEMI patient underwent PCI with bare metal stent to LCx by Dr. Krause on 11/30/16. The patient had a CT of the abdomen and pelvis on admission which showed marked soft tissue thickening in the distal esophagus concerning for esophageal cancer. The patient was also noted to have liver cirrhosis and mild splenomegaly. Patient has a history of alcohol intake but according to the girlfriend has not had alcoholic drinks for several months. CTA no evidence of pulmonary embolism or pneumonia. Critical care was consulted today for altered mentation, persistent fever, MSSA bacteremia and worsening sepsis. Apparently patient was agitated overnight requiring restraints. He also sustained a fall when he tried to climb out of the bed. CT of the head was negative except for a possible artifact left temporal region. An MRI which was done today came back negative. On my evaluation the ICU patient was very lethargic and tachypneic breathing approximately 35-40. ABG showed respiratory alkalosis. His altered mentation is most likely secondary to severe sepsis, alcohol withdrawal seems less likely. Blood cultures 4/4 growing MSSA, lactic acid 3,6. 12/25: Today underwent EGD with esophageal stent placement. significant bleeding from distal esophagus. GI and anesthesia felt patient should remain intubated for airway protection. In addition, patient persistently hypotensive requiring vasopressors, phenylephrine at 100 mcg/min, and in a flutter RVR on diltiazem drip. On my evaluation, patient was becoming more unstable. Adenosine 6mg iv x 1 was given which confirmed the rhythm as a flutter, but did not convert patient. give that patient was not anticoagulated, risk/benefit of electrical cardioversion at that time was in favor of conservative measures. patient bolused with amiodarone and placed on amiodarone drip, along with aggressive electrolyte replacement. Of note, patient also has new documented diagnosis of dynamic LVOT obstruction due to his LV hypertrophy and hyperdynamic cardiac function. Critical care medicine re-consulted to evaluate and manage his respiratory failure and cardiac dysrhythmias. 12/26: No more bleeding. Will work to extubate and start liquids, continue oral meds, especially beta gutierrez. 12/29: Reconsulted due to A. fib with RVR. Currently on 5 L simple mask. On amiodarone and Cardizem drips. Looks like some pulmonary edema will be actively diuresed. 12/30: Remains in A. fib with RVR. Currently on 10 L simple mask. Continues on amiodarone drip at 0.5 mg per minute and Cardizem drip at 20 mg an hour. Despite diuresis, increasing oxygen requirements. 12/31: Good response to diuresis. Weight still up about 10 kg. Dense infiltrate right chest, increasing FiO2 requirements. 01/01: Continued respiratory failure. FiO2 70% in tight BiPAP with sats 88%. Labored respirations and poor peripheral perfusion. Will need left effusion and pericardium tapped. I predict problems with hypotension if we use sedation - will start neosynephrine then induce. I have discussed the risks of pericardiocentesis and thoracentesis in detail with the patient, especially increased arrhythmia risk, possibly fatal. 01/02: Resting comfortable in bed. FiO2 40%. Arousable and follows commands. Status post pericardiocentesis yesterday. 20 cc past 24 hours. 01/03: Tmax 99.8. FiO2 down to 35%. Remains on Oziel-Synephrine at 70 g per minute. Currently normal sinus rhythm. Will attempt thoracentesis left side today permission obtainable with possible attempt at extubation soon. Initiating TPN for nutrition. 01/04: Resting comfortable in bed. Currently afebrile. #10 Beninese pigtail catheter placed left pleural effusion yesterday. -210 cc overnight. No bowel movement 5 days. Relistor, and enema provided today. Nurse states that that patient possible seizure. CT head/EEG ordered for today. 01/05: Remains intubated sedated. L pigtail with 1.5 L output since yesterday. EEG normal- no sz. Ct head negative. Cytology from Pericardial fluid pending. Will await cytology prior to deciding on CTS consult for pericardial window 01/06: On minimal sedation. Remains on Amiodarone, Cardizem gtt. On oziel- synephrine to keep MAP >65. Pericardial drain with only minimal out put-will remove drain today. Bedside echo today. Additional Lasix and 1 dose of Diamox ordered for fluid overload 01/07: Extubated yesterday, tolerating reasonably well. good O2 sats on 4L NC. UO 5L in 24 hours, Aftab CT with 2.5 L in 24 hours. Afib rate . Will switch to PO Amiodarone. Swallow eval today. Limited 2D Echo. Pericardial drain removed yesterday 01/07. 01/08: Breathing with acceptable comfort after extubation about 40 hours ago. Pericardial drain out. Serous drainage persists right chest tube. Pericardial fluid negative for malignant cells despite bloody content. 01/09: Up in chair, frail. Left chest tube accidentally removed/dislodged. CXR OK, infiltrates persist. US legs no DVT. Subjective: 01/10 On 3 L nasal cannula. R chest tube with 520 mL output. Nurse states he is getting stronger with getting up to chair but not always cooperative and concerned for pulling R CT out. Drinking some ensure but overall by mouth intake limited per RN. Remains on TPN. Objective Vital Signs Date Time Temp Pulse Resp B/P (MAP) Pulse Ox O2 Delivery O2 Flow Rate FiO2 01/10/17 09:02 100 Nasal Cannula 3.00 01/10/17 06:00 78 01/10/17 04:00 98.5 21 126/62 (83) 01/06/17 14:40 35 Intake and Output 01/10/17 01/10/17 01/10/17 07:59 15:59 23:59 Intake Total 801 ml Output Total 1080 ml Balance -279 ml Result Diagram: 01/10/17 0430 01/10/17 0430 Imaging Last Impressions Chest X-Ray 01/03/17 1334 Signed Impressions: Service Date/Time: Tuesday, January 03, 2017 13:42 - CONCLUSION: Stable chest. Pericardial drain. Left-sided chest tube without pneumothorax. Jagjit Tapia MD CT Angiography 12/31/16 0000 Signed Impressions: Service Date/Time: Saturday, December 31, 2016 01:00 - CONCLUSION: 1. Study is negative for pulmonary embolism. 2. Pericardial effusion, diffuse patchy consolidation in both lungs, collapse left lower lobe, bilateral pleural effusions, esophageal stent, similar to yesterday's CT thorax. Kulwant Gupta MD Thoracentesis 12/30/16 0000 Signed Impressions: Service Date/Time: Friday, December 30, 2016 15:34 - CONCLUSION: Uncomplicated CT-guided thoracentesis. Kiran Harding MD Chest CT 12/29/16 0000 Signed Impressions: Service Date/Time: Friday, December 30, 2016 10:56 - CONCLUSION: 1. Moderate bilateral pleural effusions. 2. Areas of consolidation in the upper lobes bilaterally and in the right middle and right lower lobe. There is some combination of consolidation and atelectasis seen in the left lower lobe. Underlying diffuse processes should be considered including edema. 3. Esophageal stent in place. There is increased density within the stent which could be from fluid or soft tissue. 4. Non-specific mildly prominent lymph nodes in the mediastinum. 5. Moderate pericardial effusion. 6. Possible 3rd non-displaced right rib fracture. Washington Chou MD GI Procedure 12/25/16 0000 Signed Impressions: Service Date/Time: December 19:33 - CONCLUSION: Spot film as above. Everett Pollock MD FACR Barium Swallow X-Ray 12/20/16 0000 Signed Impressions: Service Date/Time: Tuesday, December 20, 2016 13:15 - CONCLUSION: 1. The distal half of the esophagus demonstrates irregular luminal narrowing consistent with the patient's history of esophageal adenocarcinoma. 2. Mild dilatation of the esophagus immediately proximal to the esophageal mass. However, there are no signs of obstruction. 3. Small hiatal hernia. Washington Marroquin MD Abdomen MRI 12/17/16 0000 Signed Impressions: Service Date/Time: Saturday, December 17, 2016 13:59 - CONCLUSION: 1. No acute finding is identified to explain the abdominal pain. 2. Stable thickening of the distal esophagus. There is a single mildly enlarged left gastric lymph node measuring 12 x 10 mm. 3. Moderate sized bilateral pleural effusions, left larger than right, with associated compressive atelectasis. Washington Marroquin MD Head CT 12/01/16 0000 Signed Impressions: Service Date/Time: Thursday, December 01, 2016 07:59 - CONCLUSION: 1. Questionable area of low attenuation left temporal lobe could be artifact versus less likely infarct. MRI may be warranted based on clinical history. 2. No midline shift or mass effect. 3. No intraparenchymal hemorrhage. Jagjit Tapia MD Brain MRI 12/01/16 0000 Signed Impressions: Service Date/Time: Thursday, December 01, 2016 12:07 - CONCLUSION: Normal examination. Barrett Rodriguez MD Abdomen X-Ray 12/01/16 0000 Signed Impressions: Service Date/Time: Thursday, December 01, 2016 16:48 - CONCLUSION: No evidence of obstruction. Feeding tube tip in the distal stomach. Barrett Rodriguez MD Abdomen/Pelvis CT 11/29/16 2356 Signed Impressions: Service Date/Time: Wednesday, November 30, 2016 01:35 - CONCLUSION: 1. Markedly abnormal appearance of the distal esophagus consistent with the history of esophageal carcinoma. 2. Atherosclerotic calcifications of the aorta and iliac vessels. 3. Cirrhotic appearance to the liver with a mildly nodular contour present. Erik Simon MD Objective Remarks GENERAL: Patient is 61 yo male, currently sitting up in bedside chair on 3 L NC. SKIN: Warm and dry. HEAD: Normocephalic. EYES: No scleral icterus. No injection or drainage. MOUTH: No bleeding. Moist membranes. NECK: trachea midline. No JVD. CARDIOVASCULAR: Currently normal sinus rhythm. S1, S2 no S4. 3/6 Systolic and diastolic murmur in all areas. RESPIRATORY: Diminished breath sounds bases with coarse breath sounds throughout right lung field. No wheeze. R chest tube in place to suction. Serous Output 520 mL last 24 hours. GASTROINTESTINAL: Abdomen soft, non-tender, nondistended. BS active. VASC: 2+ pitting bipedal edema. Single lumen PICC line in left upper extremity. NEURO: Awake alert, following commands. Oriented to person, place, circumstance but at times confused Procedures central line/ arterial line placement intubation cardiac catheterization port removal EUS with esophageal stent placement A/P Assessment and Plan NEURO/Psych: Acute metabolic encephalopathy-improving Possible alcohol withdrawal, improved. Chronic oxycodone use Encephalopathy most likely secondary to hypoxia, sepsis, now improving. Completed therapy with Thiamine for EtOH withdrawal 12/05. Will d/c 01/10. Continue MVI daily. Acetaminophen for fever Currently off all sedation. He says oxycodone 15 making him too sleepy. Will change to percocet 10 q4. Oxycodone additional 5 as needed for breakthrough. Tramadol on hold. RESP: Acute hypoxemic respiratory failure - multifactorial, resolved History COPD Anterior airway Tobacco abuse Bilateral pleural effusions - Emergently intubated and placed on mechanical ventilation 12/02/16, extubated 12/03/16, (Intubated with GlideScope #4 blade Grade 2 view, easy intubation) - Re intubated 01/01/17 PRVC ventilation 16/550/1//35. Extubated 01/06 - Ventilator bundle. DuoNeb every 6 hours scheduled and every 2 hours when necessary - NC, wean as tolerated. IS q1 hour away. - CT chest revealed bilateral pleural effusions. Thoracentesis -1200 cc 12/30. Placement of Left #10 Beninese pigtail catheter 01/03. Was dislodged 01/09. Placement of right #10 Beninese pigtail catheter 01/06. -40 cm, 520 output in 24 hour, seems to be declining. Right pleural fluid Cytology negative for malignancy 01/06, Pleural fluid cytology -12/30 CV: Pericardial effusion, tamponade status post pericardiocentesis 01/01/17 Atrial fibrillation with RVR currently normal sinus rhythm NSTEMI Dynamic LVOT obstruction Coronary artery disease status post bare metal stent to left circumflex Krause 12/01 Emergency Pericardiocentesis drains -01/01. Cc. Cultures no growth. Removed drain 01/06, Followup limited Echo 01/07EF 60-65%. Trivial small pericardial effusion present Cardiac catheterization 12/01 revealed EF around 60%. Left main normal. RCA normal. LAD 70% ostial. Bare stent left circumflex 70%. Resume ASA 162 mg daily, d/c rectal ASA/ Continue Plavix 75 mg daily Continue amiodarone 200 mg by mouth every 12 hours. Continue Metoprolol 25 mill grams every 6 hours 2-D echo no veg, EF 50-55%. Mild MR, mild AR. Pseudo-outflow obstruction due to concentric hypertrophy and hyperdynamic ventricle Continue Lasix 20 mill grams IV every 12 hours Holding home medications of losartan 100 mg, amlodipine 10 mg daily. Resume atorvastatin 40 by mouth daily for dyslipidemia. Pericardial fluid cytology 01/01 - negative for malignancy GI: Invasive adenocarcinoma of the esophagus Liver cirrhosis - Tolerating mechanical soft thin liquids. Speech therapy has signed off - Calorie counts being performed. - Has biopsy proven invasive adenocarcinoma of esophagus - Status post EUS/esophageal stent placement 12/25 - IV Protonix for twice a day continue. - Carafate 1 g by mouth daily per her GI - TPN goal 60 cc an hour -May wean slowly with increasing PO intake - Surgery/Dr. Rich is following. RENAL: Acute kidney failure/ATN resolved - Monitor renal function closely. Saxena catheter. -On Lasix 20 IV BID, additional 40 MG VIx1 today Follow BMP in a.m. ID: Septic shock-resolved MSSA bacteremia [id number] infection status post removal Pseudomonas pneumonia - Previously Rapid clinical improvement after [id number] was removed. remains off all pressors - Catheter tip culture blood culture and wound culture also positive for MSSA - Continue Rifampin, for synergy per ID (on po now), and Cefepime antipseudomonal dosing. He will need 6 weeks IV Abx - Infectious disease Dr. Nassar. 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 Bell is following - Status post surgical resection for L parotid SCC at [facility] 10/01 --Hematology plans to give weekly Erbitux and XRT outpatient. Transfuse as needed for hemoglobin less than 8 ENDO: Hypokalemia Hypo-magnesium Diabetes Hypothyroidism Chronic prednisone use - Electrolyte replacement per protocol - On detemir 30 units every 12 hours, Continue TPN. No insulin and TPN. Increase sliding scale every 4 hours Holding home medications of metformin 1000 mg twice a day and glipizide 20 mill grams by mouth twice a day - D/c IV synthroid and change to regular dose of 50 mcg po daily. . TSH 0.555 on admission Resume prednisone 5 mg daily. DC Solu-Medrol PROPH: - Bilateral lower extremity SCDs. No pharmacological prophylaxis secondary to hemoptysis - Pantoprazole 40 iv twice a day PT/OT following. Case management notes reviewed. [facility] Level [facility] Overall impression: Very ill, severely debilitated man with depleted nutritional status and marginal respiratory function. Some improvement overnight. Sveta Zamora MD Jan 10, 2017 12:30
[2017-01-10] MEDS: CLINIMIX E 4.25/25 2000 mL- >42 mls/hr IV-CENTRAL SCH ×3 (13:44)
[2017-01-10] MEDS ORDERED: GLUCAGON 1 MG/ML VIAL OTHER PRN (14:30)
[2017-01-10] MEDS ORDERED: DEXTROSE 50% IN WATER 50 ML VIAL(D50) IV PRN (14:30)
[2017-01-10] MEDS ORDERED: POTASSIUM CHLOR 40 MEQ PREMIX 100 ML IV ONE (15:30)
[2017-01-10] MEDS: LEVOFLOXACIN 750 MG TAB PO SCH (16:56)
[2017-01-10] MEDS: INSULIN ASPART SUPPLEMENTAL SCALE SQ SCH ×2 (16:57→22:01)
[2017-01-10] MEDS: ATORVASTATIN 40 MG TAB PO SCH (22:24)
[2017-01-10] MEDS: RIFAMPIN 150 MG CAP PO SCH (22:24)
[2017-01-10] MEDS: oxyCODONE/ACETAMINOPHEN 10 MG/325 MG TAB PO PRN (22:46)
[2017-01-11] VITALS (18 sets, daily range): BP systolic 100–123; BP diastolic 51–74; PULSE 78–88; RESP 17–21; TEMP 98–98.2; O2SAT 98–100
[2017-01-11] MEDS: METOPROLOL TARTRATE 25 MG TAB PO SCH ×4 (00:24→18:54)
[2017-01-11] MEDS: ceFAZolin 2 GM PREMIX 50 ML IV SCH ×3 (00:24→16:12)
[2017-01-11] MEDS: CLINIMIX E 4.25/25 2000 mL- >42 mls/hr IV-CENTRAL SCH ×3 (00:57)
[2017-01-11] MEDS: RESP: ALBUTEROL 2.5 MG/IPRATROPIUM 0.5 MG NEB (SCH) NEB ×4 (03:52→21:32)
[2017-01-11] MEDS: oxyCODONE/ACETAMINOPHEN 10 MG/325 MG TAB PO PRN ×3 (03:58→22:37)
[2017-01-11] MEDS: INSULIN ASPART SUPPLEMENTAL SCALE SQ SCH ×5 (04:00→21:00)
[2017-01-11] MEDS: ARTIFICIAL TEARS OPTH SOLN 15 ML BTL EACH EYE SCH ×3 (06:00→22:38)
[2017-01-11] MEDS: LEVOTHYROXINE SODIUM 50 MCG TAB PO SCH (06:25)
[2017-01-11] MEDS: SUCRALFATE 1 GM/10 ML CUP PO SCH ×4 (06:25→22:38)
[2017-01-11] MEDS: SODIUM CHLORIDE 0.9% FLUSH 10 ML FLUSH IV FLUSH SCH ×4 (08:00→20:16)
[2017-01-11] MEDS: DOCUSATE SODIUM 50 MG/SENNA 8.6 MG TAB PO SCH ×2 (08:00→20:16)
[2017-01-11] MEDS: CHLORHEXIDINE 0.12% (ORAL KIT) 15 ML CUP MT SCH ×3 (08:00→20:00)
[2017-01-11 08:23] LABS: AUTOMATED NEUTROPHIL # 4.2 TH/MM3 (1.8-7.7); BASOPHIL % 0.7 % (0.0-2.0); EOSINOPHIL # 0.2 TH/MM3 (0-0.4); EOSINOPHIL % 3.2 % (0.0-4.0); HEMATOCRIT 27.6 % (39.0-51.0); HEMO FLAGS DIFF FINAL; LYMPH % 16.9 % (9.0-44.0); MEAN CELL VOLUME 88.1 FL (80.0-100.0); MEAN CORPUSCULAR HEMOGLOBIN 29.2 PG (27.0-34.0); MEAN CORPUSCULAR HGB CONC 33.1 % (32.0-36.0); MONO % 8.7 % (0.0-8.0); NEUT % 70.5 % (16.0-70.0); PLATELET COUNT 187 TH/MM3 (150-450); RED BLOOD COUNT 3.14 MIL/MM3 (4.50-5.90); RED CELL DISTRIBUTION WIDTH 19.9 % (11.6-17.2); WHITE BLOOD COUNT 5.9 TH/MM3 (4.0-11.0)
[2017-01-11] MEDS: RIFAMPIN 150 MG CAP PO SCH ×2 (08:45→22:37)
[2017-01-11] MEDS: MULTIVITAMIN TAB PO SCH (08:45)
[2017-01-11 08:47] LABS: ANION GAP 6 MEQ/L (5-15); AST (GOT) 19 U/L (15-37); BICARBONATE 31.7 MEQ/L (21.0-32.0); BLOOD UREA NITROGEN 16 MG/DL (7-18); CHLORIDE 99 MEQ/L (98-107); GLOMERULAR FILTRATION RATE 187 ML/MIN (>89); MAGNESIUM 1.8 MG/DL (1.5-2.5); POTASSIUM 4.1 MEQ/L (3.5-5.1); SODIUM (NA) 137 MEQ/L (136-145)
[2017-01-11] MEDS: AMIODARONE 200 MG TAB PO SCH ×2 (08:47→20:16)
[2017-01-11] MEDS: CLOPIDOGREL 75 MG TAB PO SCH (08:47)
[2017-01-11] MEDS: ASPIRIN EC 81 MG TABEC PO SCH (08:47)
[2017-01-11] MEDS: FUROSEMIDE 20 MG/2 ML VIAL IV PUSH SCH ×3 (08:48→20:17)
[2017-01-11] MEDS: POLYETHYLENE GLYCOL 17 GM PKG PO SCH (08:48)
[2017-01-11] MEDS: INSULIN DETEMIR 100 UNITS/ML VIAL SQ SCH ×2 (08:49→22:41)
[2017-01-11] MEDS: PANTOPRAZOLE SODIUM 40 MG VIAL IV PUSH SCH ×2 (08:50→22:38)
[2017-01-11 08:55] LABS: ALKALINE PHOSPHATASE 86 U/L (45-117); ALT (GPT) 13 U/L (12-78); TOTAL BILIRUBIN ADULT 0.4 MG/DL (0.2-1.0)
[2017-01-11] MEDS: predniSONE 5 MG TAB PO SCH (10:47)
--- NOTE | 2017-01-11 11:02 | HHI.CCPN ---
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 He was hypotensive, febrile up to 101 and received IV fluid resuscitation with improvement in his blood pressure. EKG showed ST-T wave changes, and troponin was elevated and peaked at 17.1. The patient has been evaluated by cardiology. For NSTEMI patient underwent PCI with bare metal stent to LCx by Dr. Krause on 11/30/16. The patient had a CT of the abdomen and pelvis on admission which showed marked soft tissue thickening in the distal esophagus concerning for esophageal cancer. The patient was also noted to have liver cirrhosis and mild splenomegaly. Patient has a history of alcohol intake but according to the girlfriend has not had alcoholic drinks for several months. CTA no evidence of pulmonary embolism or pneumonia. Critical care was consulted today for altered mentation, persistent fever, MSSA bacteremia and worsening sepsis. Apparently patient was agitated overnight requiring restraints. He also sustained a fall when he tried to climb out of the bed. CT of the head was negative except for a possible artifact left temporal region. An MRI which was done today came back negative. On my evaluation the ICU patient was very lethargic and tachypneic breathing approximately 35-40. ABG showed respiratory alkalosis. His altered mentation is most likely secondary to severe sepsis, alcohol withdrawal seems less likely. Blood cultures 4/4 growing MSSA, lactic acid 3,6. 12/25: Today underwent EGD with esophageal stent placement. significant bleeding from distal esophagus. GI and anesthesia felt patient should remain intubated for airway protection. In addition, patient persistently hypotensive requiring vasopressors, phenylephrine at 100 mcg/min, and in a flutter RVR on diltiazem drip. On my evaluation, patient was becoming more unstable. Adenosine 6mg iv x 1 was given which confirmed the rhythm as a flutter, but did not convert patient. give that patient was not anticoagulated, risk/benefit of electrical cardioversion at that time was in favor of conservative measures. patient bolused with amiodarone and placed on amiodarone drip, along with aggressive electrolyte replacement. Of note, patient also has new documented diagnosis of dynamic LVOT obstruction due to his LV hypertrophy and hyperdynamic cardiac function. Critical care medicine re-consulted to evaluate and manage his respiratory failure and cardiac dysrhythmias. 12/26: No more bleeding. Will work to extubate and start liquids, continue oral meds, especially beta gutierrez. 12/29: Reconsulted due to A. fib with RVR. Currently on 5 L simple mask. On amiodarone and Cardizem drips. Looks like some pulmonary edema will be actively diuresed. 12/30: Remains in A. fib with RVR. Currently on 10 L simple mask. Continues on amiodarone drip at 0.5 mg per minute and Cardizem drip at 20 mg an hour. Despite diuresis, increasing oxygen requirements. 12/31: Good response to diuresis. Weight still up about 10 kg. Dense infiltrate right chest, increasing FiO2 requirements. 01/01: Continued respiratory failure. FiO2 70% in tight BiPAP with sats 88%. Labored respirations and poor peripheral perfusion. Will need left effusion and pericardium tapped. I predict problems with hypotension if we use sedation - will start neosynephrine then induce. I have discussed the risks of pericardiocentesis and thoracentesis in detail with the patient, especially increased arrhythmia risk, possibly fatal. 01/02: Resting comfortable in bed. FiO2 40%. Arousable and follows commands. Status post pericardiocentesis yesterday. 20 cc past 24 hours. 01/03: Tmax 99.8. FiO2 down to 35%. Remains on Oziel-Synephrine at 70 g per minute. Currently normal sinus rhythm. Will attempt thoracentesis left side today permission obtainable with possible attempt at extubation soon. Initiating TPN for nutrition. 01/04: Resting comfortable in bed. Currently afebrile. #10 Bel[place]ian pigtail catheter placed left pleural effusion yesterday. -210 cc overnight. No bowel movement 5 days. Relistor, and enema provided today. Nurse states that that patient possible seizure. CT head/EEG ordered for today. 01/05: Remains intubated sedated. L pigtail with 1.5 L output since yesterday. EEG normal- no sz. Ct head negative. Cytology from Pericardial fluid pending. Will await cytology prior to deciding on CTS consult for pericardial window 01/06: On minimal sedation. Remains on Amiodarone, Cardizem gtt. On oziel- synephrine to keep MAP >65. Pericardial drain with only minimal out put-will remove drain today. Bedside echo today. Additional Lasix and 1 dose of Diamox ordered for fluid overload 01/07: Extubated yesterday, tolerating reasonably well. good O2 sats on 4L NC. UO 5L in 24 hours, Aftab CT with 2.5 L in 24 hours. Afib rate . Will switch to PO Amiodarone. Swallow eval today. Limited 2D Echo. Pericardial drain removed yesterday 01/07. 01/08: Breathing with acceptable comfort after extubation about 40 hours ago. Pericardial drain out. Serous drainage persists right chest tube. Pericardial fluid negative for malignant cells despite bloody content. 01/09: Up in chair, frail. Left chest tube accidentally removed/dislodged. CXR OK, infiltrates persist. US legs no DVT. 01/10 On 3 L nasal cannula. R chest tube with 520 mL output. Nurse states he is getting stronger with getting up to chair but not always cooperative and concerned for pulling R CT out. Drinking some ensure but overall by mouth intake limited per RN. Remains on TPN. Subjective: 01/11 on 2 L nasal cannula. Right chest tube output decreasing, was 220 last 24 hours. Drink some supplemental shakes with calorie count ongoing. We'll reduce TPN Objective Vital Signs Date Time Temp Pulse Resp B/P (MAP) Pulse Ox O2 Delivery O2 Flow Rate FiO2 01/11/17 09:41 99 Nasal Cannula 2.00 01/11/17 06:00 82 01/11/17 04:00 98.2 20 122/59 (80) Intake and Output 01/11/17 01/11/17 01/11/17 07:59 15:59 23:59 Intake Total 1393 ml 150 ml Output Total 1520 ml Balance -127 ml 150 ml Result Diagram: 01/11/17 0630 01/11/17 0630 Imaging Last Impressions Chest X-Ray 01/03/17 1334 Signed Impressions: Service Date/Time: Tuesday, January 03, 2017 13:42 - CONCLUSION: Stable chest. Pericardial drain. Left-sided chest tube without pneumothorax. Jagjit Tapia MD CT Angiography 12/31/16 0000 Signed Impressions: Service Date/Time: Saturday, December 31, 2016 01:00 - CONCLUSION: 1. Study is negative for pulmonary embolism. 2. Pericardial effusion, diffuse patchy consolidation in both lungs, collapse left lower lobe, bilateral pleural effusions, esophageal stent, similar to yesterday's CT thorax. Kulwant Gupta MD Thoracentesis 12/30/16 0000 Signed Impressions: Service Date/Time: Friday, December 30, 2016 15:34 - CONCLUSION: Uncomplicated CT-guided thoracentesis. Kiran Harding MD Chest CT 12/29/16 0000 Signed Impressions: Service Date/Time: Friday, December 30, 2016 10:56 - CONCLUSION: 1. Moderate bilateral pleural effusions. 2. Areas of consolidation in the upper lobes bilaterally and in the right middle and right lower lobe. There is some combination of consolidation and atelectasis seen in the left lower lobe. Underlying diffuse processes should be considered including edema. 3. Esophageal stent in place. There is increased density within the stent which could be from fluid or soft tissue. 4. Non-specific mildly prominent lymph nodes in the mediastinum. 5. Moderate pericardial effusion. 6. Possible 3rd non-displaced right rib fracture. Washington Chou MD GI Procedure 12/25/16 0000 Signed Impressions: Service Date/Time: December 19:33 - CONCLUSION: Spot film as above. Everett Pollock MD FACR Barium Swallow X-Ray 12/20/16 Signed Impressions: Service Date/Time: Tuesday, December 20, 2016 13:15 - CONCLUSION: 1. The distal half of the esophagus demonstrates irregular luminal narrowing consistent with the patient's history of esophageal adenocarcinoma. 2. Mild dilatation of the esophagus immediately proximal to the esophageal mass. However, there are no signs of obstruction. 3. Small hiatal hernia. Washington Marroquin MD Abdomen MRI 12/17/16 0000 Signed Impressions: Service Date/Time: Saturday, December 17, 2016 13:59 - CONCLUSION: 1. No acute finding is identified to explain the abdominal pain. 2. Stable thickening of the distal esophagus. There is a single mildly enlarged left gastric lymph node measuring 12 x 10 mm. 3. Moderate sized bilateral pleural effusions, left larger than right, with associated compressive atelectasis. Washington Marroquin MD Head CT 12/01/16 0000 Signed Impressions: Service Date/Time: Thursday, December 01, 2016 07:59 - CONCLUSION: 1. Questionable area of low attenuation left temporal lobe could be artifact versus less likely infarct. MRI may be warranted based on clinical history. 2. No midline shift or mass effect. 3. No intraparenchymal hemorrhage. Jagjit Tapia MD Brain MRI 12/01/16 0000 Signed Impressions: Service Date/Time: Thursday, December 01, 2016 12:07 - CONCLUSION: Normal examination. Barrett Rodriguez MD Abdomen X-Ray 12/01/16 0000 Signed Impressions: Service Date/Time: Thursday, December 01, 2016 16:48 - CONCLUSION: No evidence of obstruction. Feeding tube tip in the distal stomach. Barrett Rodriguez MD Abdomen/Pelvis CT 11/29/16 [id number] Signed Impressions: Service Date/Time: Wednesday, November 30, 2016 01:35 - CONCLUSION: 1. Markedly abnormal appearance of the distal esophagus consistent with the history of esophageal carcinoma. 2. Atherosclerotic calcifications of the aorta and iliac vessels. 3. Cirrhotic appearance to the liver with a mildly nodular contour present. Erik Simon MD Objective Remarks GENERAL: Patient is 61 yo male, currently sitting up in bedside chair on 3 L NC. SKIN: Warm and dry. HEAD: Normocephalic. EYES: No scleral icterus. No injection or drainage. MOUTH: No bleeding. Moist membranes. NECK: trachea midline. No JVD. CARDIOVASCULAR: Currently normal sinus rhythm. S1, S2 no S4. 3/6 Systolic and diastolic murmur in all areas. RESPIRATORY: Diminished breath sounds bases with coarse breath sounds throughout right lung field. No wheeze. R chest tube in place to suction. Serous Output 520 mL last 24 hours. GASTROINTESTINAL: Abdomen soft, non-tender, nondistended. BS active. VASC: 2+ pitting bipedal edema. Single lumen PICC line in left upper extremity. NEURO: Awake alert, following commands. Oriented to person, place, circumstance but at times confused Procedures central line/ arterial line placement intubation cardiac catheterization port removal EUS with esophageal stent placement A/P Assessment and Plan NEURO/Psych: Acute metabolic encephalopathy-improving Possible alcohol withdrawal, improved. Chronic oxycodone use Encephalopathy most likely secondary to hypoxia, sepsis, now improving. Completed therapy with Thiamine for EtOH withdrawal 12/05. Will d/c 01/10. Continue MVI daily. Acetaminophen for fever Currently off all sedation. He says oxycodone 15 making him too sleepy. Will change to percocet 10 q4. Oxycodone additional 5 as needed for breakthrough. Tramadol on hold. RESP: Acute hypoxemic respiratory failure - multifactorial, resolved History COPD Anterior airway Tobacco abuse Bilateral pleural effusions - Emergently intubated and placed on mechanical ventilation 12/02/16, extubated 12/03/16, (Intubated with GlideScope #4 blade Grade 2 view, easy intubation) - Re intubated 01/01/17 PRVC ventilation //. Extubated 01/06 - Ventilator bundle. DuoNeb every 6 hours scheduled and every 2 hours when necessary - NC, wean as tolerated. IS q1 hour away. - CT chest revealed bilateral pleural effusions. Thoracentesis -1200 cc 12/30. Placement of Left #10 Bel[place]ian pigtail catheter 01/03. Was dislodged 01/09. Placement of right #10 [place]ian pigtail catheter 01/06. -40 cm, 520 output in 24 hour, seems to be declining. Right pleural fluid Cytology negative for malignancy 01/06, Pleural fluid cytology -12/30 CV: Pericardial effusion, tamponade status post pericardiocentesis 01/01/17 Atrial fibrillation with RVR currently normal sinus rhythm NSTEMI Dynamic LVOT obstruction Coronary artery disease status post bare metal stent to left circumflex Krause 12/01 Emergency Pericardiocentesis drains -01/01. Cc. Cultures no growth. Removed drain 01/06, Followup limited Echo 01/07EF 60-65%. Trivial small pericardial effusion present Cardiac catheterization 12/01 revealed EF around 60%. Left main normal. RCA normal. LAD 70% ostial. Bare stent left circumflex 70%. Resume ASA 162 mg daily, d/c rectal ASA/ Continue Plavix 75 mg daily Continue amiodarone 200 mg by mouth every 12 hours. Continue Metoprolol 25 mill grams every 6 hours 2-D echo no veg, EF 50-55%. Mild MR, mild AR. Pseudo-outflow obstruction due to concentric hypertrophy and hyperdynamic ventricle Continue Lasix 20 mill grams IV every 12 hours Holding home medications of losartan 100 mg, amlodipine 10 mg daily. Resume atorvastatin 40 by mouth daily for dyslipidemia. Pericardial fluid cytology 01/01 - negative for malignancy GI: Invasive adenocarcinoma of the esophagus Liver cirrhosis - Tolerating mechanical soft thin liquids. Speech therapy has signed off - Calorie counts being performed. - Has biopsy proven invasive adenocarcinoma of esophagus - Status post EUS/esophageal stent placement 12/25 - IV Protonix for twice a day continue. - Carafate 1 g by mouth daily per her GI - TPN goal 60 cc an hour -May wean slowly with increasing PO intake - Surgery/Dr. Rich is following. RENAL: Acute kidney failure/ATN resolved - Monitor renal function closely. Saxena catheter. -On Lasix 20 IV BID, additional 40 MG VIx1 today Follow BMP in a.m. ID: Septic shock-resolved MSSA bacteremia [id number] infection status post removal Pseudomonas pneumonia - Previously Rapid clinical improvement after [id number] was removed. remains off all pressors - Catheter tip culture blood culture and wound culture also positive for MSSA - Continue Rifampin, for synergy per ID (on po now), and Cefepime antipseudomonal dosing. He will need 6 weeks IV Abx - Infectious disease Dr. Nassar. 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 Bell is following - Status post surgical resection for L parotid SCC at [facility] 10/01 --Hematology plans to give weekly Erbitux and XRT outpatient. Transfuse as needed for hemoglobin less than 8 ENDO: Hypokalemia Hypo-magnesium Diabetes Hypothyroidism Chronic prednisone use - Electrolyte replacement per protocol - On detemir 30 units every 12 hours, Continue TPN. No insulin and TPN. Increase sliding scale every 4 hours Holding home medications of metformin 1000 mg twice a day and glipizide 20 mill grams by mouth twice a day - D/c IV synthroid and change to regular dose of 50 mcg po daily. . TSH 0.555 on admission Resume prednisone 5 mg daily. DC Solu-Medrol PROPH: - Bilateral lower extremity SCDs. No pharmacological prophylaxis secondary to hemoptysis - Pantoprazole 40 iv twice a day PT/OT following. Case management notes reviewed. [facility] can accept patient when appropriate for SNF Level III Overall impression: Very ill, severely debilitated man with depleted nutritional status and marginal respiratory function. Some improvement overnight. Sveta Zamora MD Jan 11, 2017 11:02
--- NOTE | 2017-01-11 11:24 | PD.TRANSFR ---
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 He was hypotensive, febrile up to 101 and received IV fluid resuscitation with improvement in his blood pressure. EKG showed ST-T wave changes, and troponin was elevated and peaked at 17.1. The patient has been evaluated by cardiology. For NSTEMI patient underwent PCI with bare metal stent to LCx by Dr. Krause on 11/30/16. The patient had a CT of the abdomen and pelvis on admission which showed marked soft tissue thickening in the distal esophagus concerning for esophageal cancer. The patient was also noted to have liver cirrhosis and mild splenomegaly. Patient has a history of alcohol intake but according to the girlfriend has not had alcoholic drinks for several months. CTA no evidence of pulmonary embolism or pneumonia. Critical care was consulted today for altered mentation, persistent fever, MSSA bacteremia and worsening sepsis. Apparently patient was agitated overnight requiring restraints. He also sustained a fall when he tried to climb out of the bed. CT of the head was negative except for a possible artifact left temporal region. An MRI which was done today came back negative. On my evaluation the ICU patient was very lethargic and tachypneic breathing approximately 35-40. ABG showed respiratory alkalosis. His altered mentation is most likely secondary to severe sepsis, alcohol withdrawal seems less likely. Blood cultures / growing MSSA, lactic acid 3,6. 12/25: Today underwent EGD with esophageal stent placement. significant bleeding from distal esophagus. GI and anesthesia felt patient should remain intubated for airway protection. In addition, patient persistently hypotensive requiring vasopressors, phenylephrine at 100 mcg/min, and in a flutter RVR on diltiazem drip. On my evaluation, patient was becoming more unstable. Adenosine 6mg iv x 1 was given which confirmed the rhythm as a flutter, but did not convert patient. give that patient was not anticoagulated, risk/benefit of electrical cardioversion at that time was in favor of conservative measures. patient bolused with amiodarone and placed on amiodarone drip, along with aggressive electrolyte replacement. Of note, patient also has new documented diagnosis of dynamic LVOT obstruction due to his LV hypertrophy and hyperdynamic cardiac function. Critical care medicine re-consulted to evaluate and manage his respiratory failure and cardiac dysrhythmias. 12/26: No more bleeding. Will work to extubate and start liquids, continue oral meds, especially beta gutierrez. 12/29: Reconsulted due to A. fib with RVR. Currently on 5 L simple mask. On amiodarone and Cardizem drips. Looks like some pulmonary edema will be actively diuresed. 12/30: Remains in A. fib with RVR. Currently on 10 L simple mask. Continues on amiodarone drip at 0.5 mg per minute and Cardizem drip at 20 mg an hour. Despite diuresis, increasing oxygen requirements. 12/31: Good response to diuresis. Weight still up about 10 kg. Dense infiltrate right chest, increasing FiO2 requirements. 01/01: Continued respiratory failure. FiO2 70% in tight BiPAP with sats 88%. Labored respirations and poor peripheral perfusion. Will need left effusion and pericardium tapped. I predict problems with hypotension if we use sedation - will start neosynephrine then induce. I have discussed the risks of pericardiocentesis and thoracentesis in detail with the patient, especially increased arrhythmia risk, possibly fatal. 01/02: Resting comfortable in bed. FiO2 40%. Arousable and follows commands. Status post pericardiocentesis yesterday. 20 cc past 24 hours. 01/03: Tmax 99.8. FiO2 down to 35%. Remains on Oziel-Synephrine at 70 g per minute. Currently normal sinus rhythm. Will attempt thoracentesis left side today permission obtainable with possible attempt at extubation soon. Initiating TPN for nutrition. 01/04: Resting comfortable in bed. Currently afebrile. #10 Chinese pigtail catheter placed left pleural effusion yesterday. -210 cc overnight. No bowel movement 5 days. Relistor, and enema provided today. Nurse states that that patient possible seizure. CT head/EEG ordered for today. 01/05: Remains intubated sedated. L pigtail with 1.5 L output since yesterday. EEG normal- no sz. Ct head negative. Cytology from Pericardial fluid pending. Will await cytology prior to deciding on CTS consult for pericardial window 01/06: On minimal sedation. Remains on Amiodarone, Cardizem gtt. On oziel- synephrine to keep MAP >65. Pericardial drain with only minimal out put-will remove drain today. Bedside echo today. Additional Lasix and 1 dose of Diamox ordered for fluid overload 01/07: Extubated yesterday, tolerating reasonably well. good O2 sats on 4L NC. UO 5L in 24 hours, Aftab CT with 2.5 L in 24 hours. Afib rate . Will switch to PO Amiodarone. Swallow eval today. Limited 2D Echo. Pericardial drain removed yesterday 01/07. 01/08: Breathing with acceptable comfort after extubation about 40 hours ago. Pericardial drain out. Serous drainage persists right chest tube. Pericardial fluid negative for malignant cells despite bloody content. 01/09: Up in chair, frail. Left chest tube accidentally removed/dislodged. CXR OK, infiltrates persist. US legs no DVT. 01/10 On 3 L nasal cannula. R chest tube with 520 mL output. Nurse states he is getting stronger with getting up to chair but not always cooperative and concerned for pulling R CT out. Drinking some ensure but overall by mouth intake limited per RN. Remains on TPN. 01/11 On 1.5 to 2 L nasal cannula. Right chest tube output decreasing, was 220 last 24 hours. Calorie count ongoing. Although intake has been very poor last couple days, he had increased intake today (eggs, cereal, 3 glucerna shakes this morning). We'll reduce TPN in half and may be able to discontinue tomorrow. Says he feels less groggy today with pain medication changes that were made yesterday, but can't sleep well at night due to pain at sacral decub. Objective Vital Signs Date Time Temp Pulse Resp B/P (MAP) Pulse Ox O2 Delivery O2 Flow Rate FiO2 01/11/17 09:41 99 Nasal Cannula 2.00 01/11/17 06:00 82 01/11/17 04:00 98.2 20 122/59 (80) Intake and Output 01/11/17 01/11/17 01/12/17 08:00 16:00 00:00 Intake Total 1543 ml Output Total 1520 ml Balance 23 ml Result Diagram: 01/11/17 0630 01/11/17 0630 Imaging Last Impressions Chest X-Ray 01/03/17 1334 Signed Impressions: Service Date/Time: Tuesday, January 03, 2017 13:42 - CONCLUSION: Stable chest. Pericardial drain. Left-sided chest tube without pneumothorax. Jagjit Tapia MD CT Angiography 12/31/16 0000 Signed Impressions: Service Date/Time: Saturday, December 31, 2016 01:00 - CONCLUSION: 1. Study is negative for pulmonary embolism. 2. Pericardial effusion, diffuse patchy consolidation in both lungs, collapse left lower lobe, bilateral pleural effusions, esophageal stent, similar to yesterday's CT thorax. Kulwant Gupta MD Thoracentesis 12/30/16 0000 Signed Impressions: Service Date/Time: Friday, December 30, 2016 15:34 - CONCLUSION: Uncomplicated CT-guided thoracentesis. Kiran Harding MD Chest CT 12/29/16 0000 Signed Impressions: Service Date/Time: Friday, December 30, 2016 10:56 - CONCLUSION: 1. Moderate bilateral pleural effusions. 2. Areas of consolidation in the upper lobes bilaterally and in the right middle and right lower lobe. There is some combination of consolidation and atelectasis seen in the left lower lobe. Underlying diffuse processes should be considered including edema. 3. Esophageal stent in place. There is increased density within the stent which could be from fluid or soft tissue. 4. Non-specific mildly prominent lymph nodes in the mediastinum. 5. Moderate pericardial effusion. 6. Possible 3rd non-displaced right rib fracture. Washington Chou MD GI Procedure 12/25/16 0000 Signed Impressions: Service Date/Time: December 19:33 - CONCLUSION: Spot film as above. Everett Pollock MD FACR Barium Swallow X-Ray 12/20/16 0000 Signed Impressions: Service Date/Time: Tuesday, December 20, 2016 13:15 - CONCLUSION: 1. The distal half of the esophagus demonstrates irregular luminal narrowing consistent with the patient's history of esophageal adenocarcinoma. 2. Mild dilatation of the esophagus immediately proximal to the esophageal mass. However, there are no signs of obstruction. 3. Small hiatal hernia. Washington Marroquin MD Abdomen MRI 12/17/16 0000 Signed Impressions: Service Date/Time: Saturday, December 17, 2016 13:59 - CONCLUSION: 1. No acute finding is identified to explain the abdominal pain. 2. Stable thickening of the distal esophagus. There is a single mildly enlarged left gastric lymph node measuring 12 x 10 mm. 3. Moderate sized bilateral pleural effusions, left larger than right, with associated compressive atelectasis. Washington Marroquin MD Head CT 12/01/16 0000 Signed Impressions: Service Date/Time: Thursday, December 01, 2016 07:59 - CONCLUSION: 1. Questionable area of low attenuation left temporal lobe could be artifact versus less likely infarct. MRI may be warranted based on clinical history. 2. No midline shift or mass effect. 3. No intraparenchymal hemorrhage. Jagjit Tapia MD Brain MRI 12/01/16 0000 Signed Impressions: Service Date/Time: Thursday, December 01, 2016 12:07 - CONCLUSION: Normal examination. Barrett Rodriguez MD Abdomen X-Ray 12/01/16 0000 Signed Impressions: Service Date/Time: Thursday, December 01, 2016 16:48 - CONCLUSION: No evidence of obstruction. Feeding tube tip in the distal stomach. Barrett Rodriguez MD Abdomen/Pelvis CT 11/29/16 [id number] Signed Impressions: Service Date/Time: Wednesday, November 30, 2016 01:35 - CONCLUSION: 1. Markedly abnormal appearance of the distal esophagus consistent with the history of esophageal carcinoma. 2. Atherosclerotic calcifications of the aorta and iliac vessels. 3. Cirrhotic appearance to the liver with a mildly nodular contour present. Erik Simon MD Objective Remarks GENERAL: Patient is 61 yo male, laying in ISC bed on left lateral decubitus position. Expressing multiple complaints regarding hospital food, wanting to go to rehab. SKIN: Warm and dry. Sacral decubitus in place with escar bilaterally. HEAD: Normocephalic. EYES: No scleral icterus. No injection or drainage. MOUTH: No bleeding. Moist membranes. NECK: trachea midline. No JVD. CARDIOVASCULAR: Currently normal sinus rhythm. S1, S2 no S4. 3/6 Systolic and diastolic murmur in all areas. RESPIRATORY: Diminished breath sounds bases with coarse breath sounds throughout right lung field. No wheeze. R chest tube in place to suction. Serous Output 220 mL last [address] substernal. GASTROINTESTINAL: Abdomen soft, non-tender, nondistended. BS active. VASC: 2+ pitting bipedal edema. Single lumen PICC line in left upper extremity. NEURO: Awake alert, following commands. Oriented to person, place, circumstance but at times confused Procedures Right axillary art line 12/02/16 Left subclavian central venous line 12/02/16 (Dr. Delarosa) intubation 12/02/16 and 01/01/17 PCI with bare metal stent to LCx by Dr. Krause on 11/30/16 port removal 12/02/16 Dr. Rich. EUS with esophageal stent placement, food bolus removal 12/25/16 Dr. Tejeda Right thoracentesis 12/30/16 (Dr. Harding) Pericardiocentesis and pericardial drain 01/01/17 (Dr. Bueno) Placement of Left #10 Chinese pigtail catheter 01/03. Was dislodged 01/09. Placement of right #10 Chinese pigtail catheter 01/06 A/P Assessment and Plan NEURO/Psych: Acute metabolic encephalopathy-improved Possible alcohol withdrawal, improved. Chronic oxycodone use Encephalopathy most likely secondary to hypoxia, sepsis, now resolved. Completed therapy with Thiamine for EtOH withdrawal 12/05. Discontinue 01/10. Continue MVI daily. Acetaminophen for fever Currently off all sedation. He says oxycodone 15 q4 made him too sleepy. Now improved on percocet 10 q4. Oxycodone additional 5 as needed for breakthrough. Restoril 15 qhs prn sleep RESP: Acute hypoxemic respiratory failure - multifactorial, resolved History COPD Anterior airway Tobacco abuse Bilateral pleural effusions - Emergently intubated and placed on mechanical ventilation 12/02/16, extubated 12/03/16, (Intubated with GlideScope #4 blade Grade 2 view, easy intubation) - Re intubated 01/01/17 PRVC ventilation 16/550/1//35. Extubated 01/06 - Ventilator bundle. DuoNeb every 6 hours scheduled and every 2 hours when necessary - NC, wean as tolerated. IS q1 hour away. - CT chest revealed bilateral pleural effusions. Thoracentesis -1200 cc 12/30. Placement of Left #10 Chinese pigtail catheter 01/03. Was dislodged 01/09. Placement of right #10 Chinese pigtail catheter 01/06. -40 cm, 220 output in 24 hour, seems to be declining. Pulmonology consult for chest tube management on the floor Right pleural fluid Cytology negative for malignancy 01/06, Pleural fluid cytology negative 12/30 CV: Pericardial effusion, tamponade status post pericardiocentesis 01/01/17 Atrial fibrillation with RVR currently normal sinus rhythm NSTEMI Dynamic LVOT obstruction Coronary artery disease status post bare metal stent to left circumflex Krause 12/01 Emergency Pericardiocentesis drains -01/01. Cc. Cultures no growth. Removed drain 01/06, Followup limited Echo 01/07EF 60-65%. Trivial small pericardial effusion present Cardiac catheterization 12/01 revealed EF around 60%. Left main normal. RCA normal. LAD 70% ostial. Bare stent left circumflex 70%. Resume ASA 162 mg daily, d/c rectal ASA/ Continue Plavix 75 mg daily Continue amiodarone 200 mg by mouth every 12 hours. Continue Metoprolol 25 mill grams every 6 hours 2-D echo no veg, EF 50-55%. Mild MR, mild AR. Pseudo-outflow obstruction due to concentric hypertrophy and hyperdynamic ventricle Increase Lasix 20 mill grams IV every 8 hours. KCL Effervescent 25 bid x2. Holding home medications of losartan 100 mg, amlodipine 10 mg daily, normotensive. Resume atorvastatin 40 by mouth daily for dyslipidemia. Pericardial fluid cytology 01/01 - negative for malignancy GI: Invasive adenocarcinoma of the esophagus Liver cirrhosis - Tolerating mechanical soft, thin liquids. Speech therapy has signed off - Calorie counts being performed. - TPN decrease to 30 mL/hr as po intake is improved. Consider discontinuing if intake continues to improve. - Has biopsy proven invasive adenocarcinoma of esophagus - Status post EUS/esophageal stent placement 12/25 Dr. Tejeda. - IV Protonix twice a day continue. - Carafate 1 g by mouth daily per her GI - Surgery removed port, now signed off. RENAL: Acute kidney failure/ATN resolved - Monitor renal function closely. Saxena catheter. -Lasix /KCL as per above Follow BMP in a.m. ID: Septic shock-resolved MSSA bacteremia [id number] infection status post removal Pseudomonas pneumonia - Previously Rapid clinical improvement after [id number] was removed. remains off all pressors - Catheter tip culture blood culture and wound culture also positive for MSSA - Continue Rifampin, for synergy per ID (on po now), and Cefepime antipseudomonal dosing. He will need 6 weeks IV Abx . Has LUE PICC - Infectious disease Dr. Nassar. 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 Bell is following - Status post surgical resection for L parotid SCC at [facility] 10/01 --Hematology plans to give weekly Erbitux and XRT outpatient. Transfuse as needed for hemoglobin less than 8 ENDO: Hypokalemia Hypo-magnesium Diabetes Hypothyroidism Chronic prednisone use - Electrolyte replacement per protocol - On detemir 30 units every 12 hours, Continue TPN. No insulin in TPN. Change sliding scale to medium dose. ac/hs. Holding home medications of metformin 1000 mg twice a day and glipizide 20 mill grams by mouth twice a day - D/c IV synthroid and change to regular dose of 50 mcg po daily. . TSH 0.555 on admission Resume prednisone 5 mg daily 01/11. Off Solu-Medrol SKIN: Sacral decubitus ulcer Wound care following. Opened to air PROPH: - Bilateral lower extremity SCDs. No pharmacological prophylaxis secondary to hemoptysis - Pantoprazole 40 iv twice a day PT/OT following. Case management notes reviewed. [facility] can accept patient back when appropriate for SNF Transfer to [facility]. Hospitalist consult to assume care 01/12. Pulmonary: Consult to manage chest tube, output declining, likely remove soon. Level II Sveta Zamora MD Jan 11, 2017 11:24
[2017-01-11] MEDS ORDERED: GLUCAGON 1 MG/ML VIAL OTHER PRN (12:15)
[2017-01-11] MEDS ORDERED: DEXTROSE 50% IN WATER 50 ML VIAL(D50) IV PRN (12:15)
[2017-01-11] MEDS: POTASSIUM CHLORIDE 25 MEQ EFFERVESCENT TAB NG SCH ×2 (12:43→20:16)
[2017-01-11] MEDS: LEVOFLOXACIN 750 MG TAB PO SCH (18:54)
[2017-01-11] MEDS ORDERED: MULTIVITAMIN INJ 10 ML, FOLIC ACID INJ 1 MG in AMINO ACID IN D5W W/ELECTROLYT 1,000 ML IV SCH ×3 (20:00)
[2017-01-11] MEDS: ATORVASTATIN 40 MG TAB PO SCH (20:16)
[2017-01-11] MEDS: TEMAZEPAM 15 MG CAP PO PRN (23:40)
[2017-01-12] VITALS (31 sets, daily range): BP systolic 99–114; BP diastolic 48–56; PULSE 78–92; RESP 17–18; TEMP 97.2–98.4; O2SAT 97–100
[2017-01-12] MEDS: ceFAZolin 2 GM PREMIX 50 ML IV SCH ×3 (00:01→17:39)
[2017-01-12] MEDS: METOPROLOL TARTRATE 25 MG TAB PO SCH ×4 (01:55→17:40)
[2017-01-12] MEDS: FUROSEMIDE 20 MG/2 ML VIAL IV PUSH SCH ×3 (03:50→21:24)
[2017-01-12] MEDS: oxyCODONE/ACETAMINOPHEN 10 MG/325 MG TAB PO PRN ×4 (03:50→21:21)
--- NOTE | 2017-01-12 04:59 | RADRPT ---
EXAM DATE/TIME: 01/12/2017 04:05 [facility] COMPARISON: CHEST SINGLE AP, January 09, 2017, 11:25. INDICATIONS : Shortness of breath, possible pulmonary disease. MEDICAL HISTORY : Chronic obstructive pulmonary disease. Hypertension Diabetes mellitus type II. Hep C SURGICAL HISTORY : Coronary artery stent. Appendectomy. ENCOUNTER: Subsequent ACUITY: 1 month PAIN SCORE: 0/10 LOCATION: Bilateral chest FINDINGS: Portable AP view the chest demonstrates a normal-sized cardiac silhouette. Left upper extremity PICC remains present. Lungs are underinflated and there is right mid and lower lung zone airspace consolid ation and left basilar opacity. Right chest tube remains present and no pneumothorax is visualized. CONCLUSION: 1. Stable right lung airspace consolidation and left basilar opacity. 2. Right chest tube remains present and no pneumothorax is visualized. Washington Marroquin MD on January 12, 2017 at 4:57 Board Certified Radiologist. This report was verified electronically.
[2017-01-12] MEDS: INSULIN ASPART SUPPLEMENTAL SCALE SQ SCH ×4 (05:26→21:22)
[2017-01-12] MEDS: LEVOTHYROXINE SODIUM 50 MCG TAB PO SCH (05:28)
[2017-01-12] MEDS: ARTIFICIAL TEARS OPTH SOLN 15 ML BTL EACH EYE SCH ×3 (05:28→21:25)
[2017-01-12] MEDS: SUCRALFATE 1 GM/10 ML CUP PO SCH ×4 (05:34→21:23)
[2017-01-12] MEDS: RESP: ALBUTEROL 2.5 MG/IPRATROPIUM 0.5 MG NEB (SCH) NEB ×4 (05:47→22:15)
[2017-01-12 07:13] LABS: BICARBONATE 31.2 MEQ/L (21.0-32.0); POTASSIUM 3.9 MEQ/L (3.5-5.1)
--- NOTE | 2017-01-12 07:37 | MB ---
cc: AMEE DOVER DATE OF CONSULTATION 01/11/[address] Sveta Zamora REASON FOR CONSULTATION Pleural effusion and chest tube management. HISTORY OF THE PRESENT ILLNESS Mr. La is a 61-year-old male with a history of squamous cell carcinoma involving the left parotid gland status post parotidectomy, radical neck dissection. He also has a history of coronary artery disease, diabetes mellitus, hypertension. The patient was admitted in the hospital with possible sepsis. He was also found to have non-ST elevation myocardial infarction and he had a bare-metal stent placed. Then during this hospitalization the patient developed respiratory failure. He was on the ventilator. Also had pericardial effusion had pericardiocentesis done and has right pleural effusion and had a chest tube placed. He also developed atrial fibrillation with rapid ventricular rate. Currently he is weaned down to nasal cannula. Chest tube is draining. Has mild chest pain. Does not have any fever or chills. Normal night sweats. PAST MEDICAL HISTORY Significant for: 1. A history of hypertension. 2. Diabetes mellitus. 3. Squamous cell carcinoma of the parotid gland status post parotidectomy and radical neck dissection. 4. Atrial fibrillation. 5. Coronary artery disease status post stent placement. MEDICATIONS He is currently takin. Multivitamin one tablet daily. 2. Lasix 20 milligrams q.8h. 3. Potassium 25 milliequivalents q.12h. 4. Temazepam 15 milligrams at night time. 5. Levothyroxine 50 micrograms daily. 6. Albuterol / Atrovent nebulizer treatment. 7. Oxycodone as needed. 8. Levaquin 750 milligrams daily. 9. Ancef 1 gram q.8h. 10. Amiodarone 200 milligrams q.12h. 11. He is on insulin 30 units of Levemir. 12. Plavix 75 milligrams daily. 13. Aspirin 162 milligrams daily. 14. Prednisone 5 milligrams daily. 15. Protonix 40 milligrams daily. 16. Carafate one gram before meals and bedtime. 17. Metoprolol 25 milligrams q.6h. 18. Nitroglycerine 0.4 milligrams as needed. 19. Lipitor 40 milligrams daily. 20. Rifampin 300 milligrams q.12h. 21. MiraLax 17 grams daily. ALLERGIES PENICILLIN. SOCIAL HISTORY He was before, now lives with a woman partner for the last 37 years. He has a long history of smoking since age 11, up to two packs a day until he entered the hospital. History of alcohol use and drug use. He used to use IV drugs. FAMILY HISTORY Noncontributory. REVIEW OF SYSTEMS He says that normally he is up, around and active. Has no seizure, stroke or epilepsy. No deep venous thrombosis or pulmonary embolism. PHYSICAL EXAMINATION GENERAL: Well built, well-nourished male, mild short of breath and discomfort, mild chest pain. VITAL SIGNS: Blood pressure 123/74, heart rate 79, respirations 17, temperature 98.2. HEENT: Pupils are equal and reactive to light. Oral mucosa, nasal mucosa normal. NECK: Supple. JVP not raised. CHEST: He has a right chest tube in place. CARDIOVASCULAR: S1, S2 normal. ABDOMEN: Benign. EXTREMITIES: No edema. IMPRESSION 1. Right pleural effusion status post chest tube placement. 2. Nicotine use likely underlying chronic obstructive pulmonary disease. 3. Pericardial effusion status post pericardiocentesis. 4. Atrial fibrillation with rapid ventricular response. 5. Coronary artery disease status post stent placement. 6. Diabetes mellitus. 7. Hypertension. 8. History of IV drug use. PLAN I discussed with the patient we will keep the chest tube to suction. Once the chest tube drainage decreases we will discontinue the chest tube. Continue present antibiotics, aerosol treatment. Monitor blood sugar. Further treatment will depend on the course in the hospital. Thank you Dr. Sveta Zamora for this consultation. MD SEJAL Martin/MOISES /3:34 PM /7:34 AM VON
[2017-01-12] MEDS: CHLORHEXIDINE 0.12% (ORAL KIT) 15 ML CUP MT SCH ×2 (08:00→20:00)
[2017-01-12] MEDS: predniSONE 5 MG TAB PO SCH (09:00)
[2017-01-12] MEDS: ASPIRIN EC 81 MG TABEC PO SCH (09:00)
[2017-01-12] MEDS: POLYETHYLENE GLYCOL 17 GM PKG PO SCH (09:00)
[2017-01-12] MEDS: AMIODARONE 200 MG TAB PO SCH ×2 (09:00→21:00)
[2017-01-12] MEDS: DOCUSATE SODIUM 50 MG/SENNA 8.6 MG TAB PO SCH ×2 (09:00→21:18)
[2017-01-12] MEDS: INSULIN DETEMIR 100 UNITS/ML VIAL SQ SCH ×2 (09:00→21:21)
[2017-01-12] MEDS: MULTIVITAMIN TAB PO SCH (09:01)
[2017-01-12] MEDS: CLOPIDOGREL 75 MG TAB PO SCH (09:01)
[2017-01-12] MEDS: RIFAMPIN 150 MG CAP PO SCH ×2 (09:02→21:18)
[2017-01-12] MEDS: SODIUM CHLORIDE 0.9% FLUSH 10 ML FLUSH IV FLUSH SCH ×3 (09:03→21:18)
[2017-01-12] MEDS: PANTOPRAZOLE SODIUM 40 MG VIAL IV PUSH SCH ×2 (09:04→21:23)
--- NOTE | 2017-01-12 14:02 | HHI.PR ---
Subjective Remarks Patient reports he is feeling okay. States he doesn't like the hospital food but he is eating better. Objective Vitals Vital Signs Date Time Temp Pulse Resp B/P (MAP) Pulse Ox O2 Delivery O2 Flow Rate FiO2 01/12/17 13:33 18 01/12/17 13:00 86 01/12/17 12:00 88 01/12/17 11:08 98.0 92 18 104/50 (68) 99 01/12/17 11:00 Nasal Cannula 2.00 01/12/17 11:00 91 01/12/17 10:43 18 01/12/17 10:01 98 Nasal Cannula 2.00 01/12/17 10:00 88 01/12/17 09:00 84 01/12/17 08:00 80 01/12/17 07:30 Nasal Cannula 2.00 01/12/17 07:30 97.2 80 17 111/53 (72) 100 01/12/17 07:00 83 01/12/17 06:00 84 01/12/17 05:00 86 01/12/17 04:00 80 01/12/17 03:45 100 Nasal Cannula 2.00 01/12/17 03:45 98.3 82 18 108/48 (68) 100 01/12/17 03:00 78 01/12/17 02:00 80 01/12/17 01:00 80 01/12/17 00:00 98.4 88 18 99/51 (67) 97 01/12/17 00:00 88 01/12/17 00:00 97 Nasal Cannula 2.00 01/11/17 23:00 88 01/11/17 22:00 84 01/11/17 21:37 98 Nasal Cannula 2.00 01/11/17 21:00 80 01/11/17 20:00 99 Nasal Cannula 2.00 01/11/17 20:00 80 01/11/17 20:00 98.2 81 18 111/53 (72) 99 01/11/17 19:20 80 01/11/17 18:00 78 01/11/17 16:00 83 01/11/17 16:00 98.2 83 17 103/51 (68) 100 I/O 01/11/17 01/11/17 01/11/17 01/12/17 01/12/17 01/12/17 07:00 15:00 23:00 07:00 15:00 23:00 Intake Total 1393 ml 200 ml 1850 ml 480 ml 50 ml Output Total 1520 ml 2390 ml 2365 ml Balance -127 ml 200 ml -540 ml -1885 ml 50 ml Intake Oral 480 ml 1800 ml 480 ml IV Total 212 ml 200 ml 50 ml 50 ml TPN/PPN 701 ml Output Urine Total 1450 ml 1590 ml 1825 ml Chest Tube Drainage Total 70 ml 800 ml 540 ml # Bowel Movements 0 0 Result Diagram: 01/11/17 0630 01/12/17 0553 Objective Remarks GENERAL: Patient appearing older than stated age. CARDIOVASCULAR: Normal rate and regular rhythm without murmurs, gallops, or rubs. RESPIRATORY: Good respiratory efforts. Chest tube in place on the right. Diminished breath sounds at the bases bilaterally. GASTROINTESTINAL: Abdomen soft, non-tender, non-distended. Normal active bowel sounds MUSCULOSKELETAL: Extremities without cyanosis, or edema. NEURO: Alert and oriented. Moves all extremities. PSYCH: Calm. Procedures Right axillary art line 12/02/16 Left subclavian central venous line 12/02/16 (Dr. Delarosa) intubation 12/02/16 and 01/01/17 PCI with bare metal stent to LCx by Dr. Krause on 11/30/16 port removal 12/02/16 Dr. Rich. EUS with esophageal stent placement, food bolus removal 12/25/16 Dr. Tejeda Right thoracentesis 12/30/16 (Dr. Harding) Pericardiocentesis and pericardial drain 01/01/17 (Dr. Bueno) Placement of Left #10 Cymraes pigtail catheter 01/03. Was dislodged 01/09. Placement of right #10 Cymraes pigtail catheter 01/06 A/P Problem List: (1) Intractable abdominal pain ICD Code: R10.9 - Unspecified abdominal pain Status: Acute (2) Esophageal carcinoma ICD Code: C15.9 - Malignant neoplasm of esophagus, unspecified Status: Acute (3) SCC (squamous cell carcinoma) ICD Code: C44.92 - Squamous cell carcinoma of skin, unspecified Status: Acute (4) Hypokalemia ICD Code: E87.6 - Hypokalemia Status: Acute (5) Lactic acidosis ICD Code: E87.2 - Acidosis Status: Acute (6) Renal insufficiency ICD Code: N28.9 - Disorder of kidney and ureter, unspecified Status: Acute (7) Elevated troponin ICD Code: R74.8 - Abnormal levels of other serum enzymes Status: Acute (8) DM (diabetes mellitus) ICD Code: E11.9 - Type 2 diabetes mellitus without complications Status: Acute (9) Tobacco abuse ICD Code: Z72.0 - Tobacco abuse Status: Acute (10) NSTEMI (non-ST elevated myocardial infarction) ICD Code: I21.4 - Non-ST elevation (NSTEMI) myocardial infarction Status: Acute (11) Bacteremia due to Gram-positive bacteria ICD Code: R78.81 - Bacteremia Status: Acute (12) Encephalopathy, metabolic ICD Code: G93.41 - Metabolic encephalopathy Status: Acute Assessment and Plan 61-year-old male with: Acute metabolic encephalopathy-improved Possible alcohol withdrawal, improved. Chronic oxycodone use Encephalopathy most likely secondary to hypoxia, sepsis, now resolved. Completed therapy with Thiamine for EtOH withdrawal 12/05. Discontinue 01/10. Continue MVI daily. Acetaminophen for fever Currently off all sedation. On Percocet 10 q4. Oxycodone additional 5 as needed for breakthrough. Restoril 15 qhs prn sleep RESP: Acute hypoxemic respiratory failure - multifactorial, resolved History of COPD Anterior airway Tobacco abuse Bilateral pleural effusions - Emergently intubated and placed on mechanical ventilation 12/02/16, extubated 12/03/16 - Re intubated 01/01/17 PRVC ventilation 16/550/1/5/35. Extubated 01/06 - NC, wean as tolerated. IS q1 hour away. - CT chest revealed bilateral pleural effusions. Thoracentesis -1200 cc 12/30. Placement of Left #10 Cymraes pigtail catheter 01/03. Was dislodged 01/09. Placement of right #10 Cymraes pigtail catheter 01/06. Pulmonology following for chest tube management. Right pleural fluid Cytology negative for malignancy 01/06, Pleural fluid cytology negative 12/30 CV: Pericardial effusion, tamponade status post pericardiocentesis 01/01/17 Atrial fibrillation with RVR currently normal sinus rhythm NSTEMI Dynamic LVOT obstruction Coronary artery disease status post bare metal stent to left circumflex Krause 12/01 Emergency Pericardiocentesis drains -01/01. Cc. Cultures no growth. Removed drain 01/06, Followup limited Echo 01/07EF 60-65%. Trivial small pericardial effusion present Cardiac catheterization 12/01 revealed EF around 60%. Left main normal. RCA normal. LAD 70% ostial. Bare stent left circumflex 70%. Resume ASA 162 mg daily, d/c rectal ASA/ Continue Plavix 75 mg daily Continue amiodarone 200 mg by mouth every 12 hours. Continue Metoprolol 25 mill grams every 6 hours 2-D echo no veg, EF 50-55%. Mild MR, mild AR. Pseudo-outflow obstruction due to concentric hypertrophy and hyperdynamic ventricle Change Lasix to 20 g IV twice a day. KCL Effervescent 25 bid x2. Holding home medications of losartan 100 mg, amlodipine 10 mg daily, normotensive. Continue atorvastatin 40 by mouth daily for dyslipidemia. Pericardial fluid cytology 01/01 - negative for malignancy GI: Invasive adenocarcinoma of the esophagus Liver cirrhosis - Tolerating mechanical soft, thin liquids. Speech therapy has signed off - Calorie counts being performed. -Patient's intake improving. Discontinue TPN - Has biopsy proven invasive adenocarcinoma of esophagus - Status post EUS/esophageal stent placement 12/25 Dr. Tejeda. - IV Protonix twice a day continue. - Carafate 1 g by mouth daily per her GI - Surgery removed port, now signed off. RENAL: Acute kidney failure/ATN resolved - Monitor renal function closely. Saxena catheter. -Lasix /KCL as per above Follow BMP in a.m. ID: Septic shock-resolved MSSA bacteremia [id number] infection status post removal Pseudomonas pneumonia - Previously Rapid clinical improvement after [id number] was removed. remains off all pressors - Catheter tip culture blood culture and wound culture also positive for MSSA - Continue Rifampin, for synergy per ID (on po now), and Ancef, Levaquin He will need 6 weeks IV Abx . Has E PICC - Infectious disease Dr. Nassar. 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 Bell is following - Status post surgical resection for L parotid SCC at [facility] 10/01 - Hematology plans to give weekly Erbitux and XRT outpatient. Transfuse as needed for hemoglobin less than 8 ENDO: Hypokalemia Hypo-magnesium Diabetes Hypothyroidism Chronic prednisone use - Electrolyte replacement per protocol - On detemir 30 units every 12 hours, Continue TPN. No insulin in TPN. Change sliding scale to medium dose. ac/hs. Holding home medications of metformin 1000 mg twice a day and glipizide 20 mill grams by mouth twice a day - D/c IV synthroid and change to regular dose of 50 mcg po daily. . TSH 0.555 on admission Resume prednisone 5 mg daily 01/11. Off Solu-Medrol SKIN: Sacral decubitus ulcer Wound care following. Opened to air PROPH: - No pharmacological prophylaxis secondary to hemoptysis. Will discuss with GI when we can resume prophylaxis. Patient has LE skin breakdown. Hold SCDs. - Pantoprazole 40 iv twice a day PT/OT following. Discharge Planning Continue care in the ICU. Carole Poole MD Jan 12, 2017 14:02
[2017-01-12] MEDS: LEVOFLOXACIN 750 MG TAB PO SCH (18:20)
--- NOTE | 2017-01-12 21:07 | HHI.PR ---
Subjective Remarks 61 YOWM with COPD,DM,AF Had Pericardial effusion and Pericardiocentesis Has Rifgt chest tube Mild SOB No Fever Objective Vital Signs Vital Signs Date Time Temp Pulse Resp B/P (MAP) Pulse Ox O2 Delivery O2 Flow Rate FiO2 01/12/17 19:33 18 01/12/17 18:00 90 01/12/17 17:37 18 01/12/17 17:00 83 01/12/17 16:18 99 Nasal Cannula 2.00 01/12/17 16:00 82 01/12/17 15:13 98.2 81 18 111/50 (70) 100 01/12/17 15:00 82 01/12/17 15:00 Nasal Cannula 2.00 01/12/17 14:00 79 01/12/17 13:00 86 01/12/17 12:00 88 01/12/17 11:08 98.0 92 18 104/50 (68) 99 01/12/17 11:00 Nasal Cannula 2.00 01/12/17 11:00 91 01/12/17 10:01 98 Nasal Cannula 2.00 01/12/17 10:00 88 01/12/17 09:00 84 01/12/17 08:00 80 01/12/17 07:30 Nasal Cannula 2.00 01/12/17 07:30 97.2 80 17 111/53 (72) 100 01/12/17 07:00 83 01/12/17 06:00 84 01/12/17 05:00 86 01/12/17 04:00 80 01/12/17 03:45 100 Nasal Cannula 2.00 01/12/17 03:45 98.3 82 18 108/48 (68) 100 01/12/17 03:00 78 01/12/17 02:00 80 01/12/17 01:00 80 01/12/17 00:00 98.4 88 18 99/51 (67) 97 01/12/17 00:00 88 01/12/17 00:00 97 Nasal Cannula 2.00 01/11/17 23:00 88 01/11/17 22:00 84 01/11/17 21:37 98 Nasal Cannula 2.00 I/O 01/11/17 01/11/17 01/11/17 01/12/17 01/12/17 01/12/17 07:00 15:00 23:00 07:00 15:00 23:00 Intake Total 1393 ml 200 ml 1850 ml 480 ml 50 ml 1120 ml Output Total 1520 ml 2390 ml 2365 ml 1740 ml Balance -127 ml 200 ml -540 ml -1885 ml 50 ml -620 ml Intake Oral 480 ml 1800 ml 480 ml 620 ml IV Total 212 ml 200 ml 50 ml 50 ml 500 ml TPN/PPN 701 ml Output Urine Total 1450 ml 1590 ml 1825 ml 1350 ml Chest Tube Drainage Total 70 ml 800 ml 540 ml 390 ml # Bowel Movements 0 0 0 Result Diagram: 01/11/1730 01/12/17 0553 Objective Remarks GENERAL: WBWN WM,NAD SKIN: Warm and dry. HEAD: Normocephalic. EYES: No scleral icterus. No injection or drainage. NECK: Supple, trachea midline. No JVD or lymphadenopathy. CARDIOVASCULAR: Regular rate and rhythm without murmurs, gallops, or rubs. RESPIRATORY: Breath sounds equal bilaterally. No accessory muscle use. Right chest tube draining GASTROINTESTINAL: Abdomen soft, non-tender, nondistended. MUSCULOSKELETAL: No cyanosis, or edema. BACK: Nontender without obvious deformity. No CVA tenderness. A/P Assessment and Plan Right Pl effusion, s/p Chest tube placement S/P Pericardiocentesis AF CAD HTN PLAN: Cont Chest tube suction Supplement 02 Aerosol Chace Goff MD Jan 12, 2017 21:07
[2017-01-12] MEDS: ATORVASTATIN 40 MG TAB PO SCH (21:19)
--- NOTE | 2017-01-12 21:52 | PD.ONC.PN ---
Subjective Subjective Remarks weak poor oral intake chest tube in place no bleeding Objective Data Date Time Temp Pulse Resp B/P (MAP) Pulse Ox O2 Delivery O2 Flow Rate FiO2 01/12/17 19:33 18 01/12/17 18:00 90 01/12/17 17:37 18 01/12/17 17:00 83 01/12/17 16:18 99 Nasal Cannula 2.00 01/12/17 16:00 82 01/12/17 15:13 98.2 81 18 111/50 (70) 100 01/12/17 15:00 82 01/12/17 15:00 Nasal Cannula 2.00 01/12/17 14:00 79 01/12/17 13:00 86 01/12/17 12:00 88 01/12/17 11:08 98.0 92 18 104/50 (68) 99 01/12/17 11:00 Nasal Cannula 2.00 01/12/17 11:00 91 01/12/17 10:01 98 Nasal Cannula 2.00 01/12/17 10:00 88 01/12/17 09:00 84 01/12/17 08:00 80 01/12/17 07:30 Nasal Cannula 2.00 01/12/17 07:30 97.2 80 17 111/53 (72) 100 01/12/17 07:00 83 01/12/17 06:00 84 01/12/17 05:00 86 01/12/17 04:00 80 01/12/17 03:45 100 Nasal Cannula 2.00 01/12/17 03:45 98.3 82 18 108/48 (68) 100 01/12/17 03:00 78 01/12/17 02:00 80 01/12/17 01:00 80 01/12/17 00:00 98.4 88 18 99/51 (67) 97 01/12/17 00:00 88 01/12/17 00:00 97 Nasal Cannula 2.00 01/11/17 23:00 88 01/11/17 22:00 84 01/12/17 01/12/17 01/12/17 06:59 14:59 22:59 Intake Total 480 ml 50 ml 1120 ml Output Total 2365 ml 1740 ml Balance -1885 ml 50 ml -620 ml Result Diagram: 01/11/17 0630 01/12/17 0553 Laboratory Results Laboratory Tests Test 01/12/17 05:53 Blood Urea Nitrogen 16 MG/DL Creatinine 0.54 MG/DL Random Glucose 93 MG/DL Calcium Level 7.7 MG/DL Sodium Level 135 MEQ/L Potassium Level 3.9 MEQ/L Chloride Level 96 MEQ/L Carbon Dioxide Level 31.2 MEQ/L Anion Gap 8 MEQ/L Estimat Glomerular Filtration Rate 156 ML/MIN Imaging Studies Last 24 hours Impressions Chest X-Ray 01/12/17 0600 Signed Impressions: Service Date/Time: Thursday, January 12, 2017 04:05 - CONCLUSION: 1. Stable right lung airspace consolidation and left basilar opacity. 2. Right chest tube remains present and no pneumothorax is visualized. Washington Marroquin MD Administered Medications Medications (Trade) Dose Ordered Sig/Geovanny Route PRN Reason Start Time Stop Time Status Last Admin Dose Admin Sodium Chloride (NS Flush) 2 ml UNSCH PRN IV FLUSH FLUSH AFTER USING IV ACCESS 11/30/16 02:45 12/24/16 09:59 Sodium Chloride (NS Flush) 2 ml BID IV FLUSH 11/30/16 09:00 01/12/17 21:18 Senna/Docusate Sodium (Rere-Colace) 1 tab BID PO 11/30/16 09:00 01/12/17 21:18 Acetaminophen (Tylenol) 325 mg Q4H PRN PO PAIN SCALE 1 TO 2 11/30/16 13:45 12/13/16 17:13 Ondansetron HCl (Zofran Inj) 4 mg Q4H PRN IV NAUSEA 11/30/16 13:45 12/24/16 22:41 Sodium Chloride (NS Flush) 5 ml Q21D IV FLUSH 11/30/16 18:00 12/21/16 17:19 Heparin Sodium (Porcine) (Heparin Central Flush) 500 units Q21D IV FLUSH 11/30/16 18:00 11/30/16 18:04 Heparin Sodium (Porcine) (Heparin Central Flush) 250 units UNSCH PRN IV FLUSH FLUSH AFTER USING IV ACCESS 11/30/16 18:00 01/12/17 05:26 Acetaminophen (Tylenol 650 Mg/ 20 ml Liq) 650 mg Q6H PRN PO FEVER 12/01/16 17:30 12/02/16 01:07 Polyethylene Glycol (Miralax) 17 gm DAILY PO 12/04/16 09:00 01/10/17 08:45 Multivitamins (Theragran) 1 tab DAILY PO 12/05/16 09:00 01/12/17 09:01 Rifampin (Rifampin) 300 mg Q12HR PO 12/06/16 09:15 01/15/17 23:00 Future hold 01/12/17 21:18 Lorazepam (Ativan Inj) 1 mg Q4H PRN IV PUSH ANXIETY AND/OR AGITATION 12/09/16 15:15 12/31/16 14:16 Atorvastatin Calcium (Lipitor) 40 mg HS PO 12/12/16 21:00 Future hold 01/12/17 21:19 Sodium Chloride (NS Flush) See Protocol DAILY IV FLUSH 12/13/16 09:00 01/12/17 09:03 Heparin Sodium (Porcine) (Heparin Central Flush) See Protocol DAILY IV FLUSH 12/13/16 09:00 01/12/17 14:59 Sodium Chloride (NS Flush) UNSCH PRN IV FLUSH SEE PROTOCOL TABLE 12/12/16 17:00 12/19/16 01:59 Lorazepam (Ativan) 0.5 mg DAILY PRN PO ANXIETY 12/18/16 15:45 Future Hold 12/19/16 08:29 Diltiazem HCl (Cardizem) 90 mg Q6H PO 12/18/16 23:00 Future Hold 12/25/16 12:14 Digoxin (Lanoxin) 0.25 mg DAILY PO 12/22/16 09:00 Future Hold 12/25/16 08:06 Sucralfate (Carafate Liq) 1 gm ACHS PO 12/22/16 11:00 01/12/17 21:23 Metoprolol Tartrate (Lopressor Inj) 5 mg Q1HR PRN IV PUSH RAPID HEART RATE 12/22/16 09:45 12/30/16 10:37 Pantoprazole Sodium (Protonix Inj) 40 mg Q12H IV PUSH 12/22/16 10:00 01/12/17 21:23 Metoprolol Tartrate (Lopressor) 25 mg Q6HR PO 12/22/16 13:00 01/12/17 17:40 Magnesium Oxide (Mag-Ox) 800 mg UNSCH PRN PO For Magnesium 1.2 - 1.6 mg/dL 12/25/16 21:00 12/27/16 06:46 Potassium Chloride 100 ml @ 50 mls/hr Q2H PRN IV For Potassium 3.3 - 3.5 mEq/L 12/25/16 21:00 01/08/17 04:35 Potassium Chloride 100 ml @ 25 mls/hr UNSCH PRN IV For Potassium 3.3 - 3.5 mEq/L 12/25/16 21:00 01/04/17 06:32 Sodium Phosphate 30 mmol/Sodium Chloride 250 ml @ 42 mls/hr UNSCH PRN IV For Phosphorus < 2.5 mg/dL 12/25/16 21:00 12/30/16 06:49 Albuterol/ Ipratropium (Duoneb Neb) 1 ampule Q2HR NEB PRN INH WHEEZING 12/25/16 21:00 01/02/17 19:29 Clopidogrel Bisulfate (Plavix) 75 mg DAILY PO 12/29/16 09:00 01/12/17 09:01 Aspirin (Ecotrin Ec) 162 mg DAILY PO 12/29/16 09:00 Future hold 01/12/17 09:00 Prednisone (Deltasone) 5 mg DAILY PO 12/29/16 09:00 Future hold 01/12/17 09:00 Chlorhexidine Gluconate (Peridex 0.12% Liq) 15 ml BID@08,20 MT 01/01/17 20:00 01/08/17 19:50 Artificial Tears (Tears Naturale Opth Soln) 1 drop Q8HR EACH EYE 01/04/17 14:00 01/12/17 21:25 Insulin Detemir (Levemir Inj) 30 units Q12HR SQ 01/06/17 21:00 01/12/17 21:21 Amiodarone HCl (Cordarone) 200 mg Q12HR PO 01/07/17 10:00 01/12/17 21:00 Cefazolin Sodium/ Dextrose 50 ml @ 100 mls/hr Q8H IV 01/07/17 17:00 01/15/17 16:59 01/12/17 17:39 Levofloxacin (Levaquin) 750 mg DAILY@1800 PO 01/07/17 18:00 01/14/17 17:59 01/12/17 18:20 Albuterol/ Ipratropium (Duoneb Neb) 1 ampule Q6HR NEB NEB 01/10/17 16:00 01/12/17 16:15 Levothyroxine Sodium (Synthroid) 50 mcg DAILY@0600 PO 01/11/17 06:00 01/12/17 05:28 Oxycodone/ Acetaminophen (Percocet 10-325 Mg) 1 tab Q4H PRN PO PAIN 1-10 01/10/17 14:15 01/12/17 21:21 Oxycodone HCl (Roxicodone) 5 mg Q4H PRN PO BREAKTHROUGH PAIN 01/10/17 14:15 01/12/17 17:50 Temazepam (Restoril) 15 mg HS PRN PO SLEEP 01/11/17 11:45 01/11/17 23:40 Insulin Aspart (NovoLOG SUPPLEMENTAL SCALE) 1 ACHS SLIDING SCALE SQ 01/11/17 16:00 01/12/17 21:22 Furosemide (Lasix Inj) 20 mg Q12HR IV PUSH 01/12/17 21:00 01/12/17 21:24 Objective Remarks GENERAL: acutely ill SKIN: Warm and dry.. CARDIOVASCULAR: Regular rate and rhythm without murmurs. RESPIRATORY: b/l scattered rhonchi GASTROINTESTINAL: Abdomen soft, non-tender, nondistended. EXTREMITIES: No cyanosis, or edema. Assessment/Plan Problem List: (1) Esophageal adenocarcinoma ICD Codes: C15.9 - Malignant neoplasm of esophagus, unspecified Status: Acute Plan: --EUS with esophageal stent placement on 12/25 --++hemoptysis --we plan to give weekly Erbitux and XRT outpatient. --patient had OP EGD with biopsy, pathology showed adenocarcinoma. --EGD/Colonoscopy, 11/20/16--showed long stricture in the mid esophagus and distal esophagus, multiple biopsies were performed Pathology revealed invasive adenocarcinoma- distal esophagus --XRT simulation done 12/19. (2) SCC (squamous cell carcinoma) ICD Codes: C44.92 - Squamous cell carcinoma of skin, unspecified Status: Acute Plan: --has a head and neck, lung malignancy which was locally advanced. --received definitive treatment with surgery. Post surgery he had positive margins and some poor risk features and he was about to get concurrent chemotherapy and radiation and adjuvantly to achieve local control of the disease --PET scan to stage his disease prior to treatment showed an esophageal mass (3) Normocytic anemia ICD Codes: D64.9 - Anemia, unspecified Status: Acute Plan: --hgb stable --transfuse packed red blood cells if his hemoglobin drops below 8.5 --s/p iron infusion (4) Afib ICD Codes: I48.91 - Unspecified atrial fibrillation Status: Acute Plan: --cardiology following. --s/p chest tube placement on 01/06. --on Plavix (on hold) --on ASA (5) Sepsis ICD Codes: A41.9 - Sepsis, unspecified organism Status: Resolved Plan: --BC 8.18: pending BC, 7.24 no growth BC, 12/07 no growth --BC, 12/05 +, S. Aureus --had removal of port, + S. aureus --on Cefepime (6) NSTEMI (non-ST elevated myocardial infarction) ICD Codes: I21.4 - Non-ST elevation (NSTEMI) myocardial infarction Status: Acute Plan: --had elevated troponin and ST-segment changes consistent with acute CT. 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 Also with a new diagnosis of early stage gastric cancer Plan --Multiple medical issues -- malnutritioned/weak --Anemia: hb stable --no blood products --Gastric Cancer: outpatient treatment once stable Problem Qualifiers (1) Afib: (2) Sepsis: Brant Bell MD Jan 12, 2017 21:52
[2017-01-13] VITALS (26 sets, daily range): BP systolic 103–111; BP diastolic 41–53; PULSE 78–94; RESP 16–20; TEMP 97.6–98.2; O2SAT 95–100
[2017-01-13] MEDS: METOPROLOL TARTRATE 25 MG TAB PO SCH ×5 (00:11→17:11)
[2017-01-13] MEDS: ceFAZolin 2 GM PREMIX 50 ML IV SCH ×3 (01:17→17:05)
[2017-01-13] MEDS: oxyCODONE/ACETAMINOPHEN 10 MG/325 MG TAB PO PRN ×4 (03:28→21:12)
[2017-01-13] MEDS: RESP: ALBUTEROL 2.5 MG/IPRATROPIUM 0.5 MG NEB (SCH) NEB ×3 (04:46→15:34)
[2017-01-13] MEDS: SUCRALFATE 1 GM/10 ML CUP PO SCH ×4 (06:21→21:03)
[2017-01-13] MEDS: LEVOTHYROXINE SODIUM 50 MCG TAB PO SCH (06:21)
[2017-01-13] MEDS: ARTIFICIAL TEARS OPTH SOLN 15 ML BTL EACH EYE SCH ×3 (06:24→21:04)
[2017-01-13] MEDS: INSULIN ASPART SUPPLEMENTAL SCALE SQ SCH ×4 (06:24→21:09)
[2017-01-13 07:17] LABS: MEAN CELL VOLUME 87.4 FL (80.0-100.0); MEAN CORPUSCULAR HEMOGLOBIN 29.1 PG (27.0-34.0); MEAN CORPUSCULAR HGB CONC 33.3 % (32.0-36.0); PLATELET COUNT 215 TH/MM3 (150-450); RED BLOOD COUNT 3.09 MIL/MM3 (4.50-5.90); RED CELL DISTRIBUTION WIDTH 19.9 % (11.6-17.2); REVIEW FLAG FINAL; WHITE BLOOD COUNT 6.8 TH/MM3 (4.0-11.0)
[2017-01-13 07:40] LABS: BICARBONATE 29.3 MEQ/L (21.0-32.0)
[2017-01-13] MEDS: CHLORHEXIDINE 0.12% (ORAL KIT) 15 ML CUP MT SCH ×2 (08:00→21:03)
[2017-01-13 08:02] LABS: POTASSIUM 4.4 MEQ/L (3.5-5.1)
[2017-01-13] MEDS: MULTIVITAMIN TAB PO SCH (08:20)
[2017-01-13] MEDS: FUROSEMIDE 20 MG/2 ML VIAL IV PUSH SCH ×2 (08:20→21:03)
[2017-01-13] MEDS: AMIODARONE 200 MG TAB PO SCH ×2 (08:21→21:03)
[2017-01-13] MEDS: DOCUSATE SODIUM 50 MG/SENNA 8.6 MG TAB PO SCH ×2 (08:21→21:03)
[2017-01-13] MEDS: predniSONE 5 MG TAB PO SCH (08:21)
[2017-01-13] MEDS: RIFAMPIN 150 MG CAP PO SCH ×2 (08:22→21:03)
[2017-01-13] MEDS: ASPIRIN EC 81 MG TABEC PO SCH (08:22)
[2017-01-13] MEDS: INSULIN DETEMIR 100 UNITS/ML VIAL SQ SCH ×2 (08:23→21:09)
[2017-01-13] MEDS: CLOPIDOGREL 75 MG TAB PO SCH (08:35)
[2017-01-13] MEDS: SODIUM CHLORIDE 0.9% FLUSH 10 ML FLUSH IV FLUSH SCH ×3 (08:36→21:03)
[2017-01-13] MEDS: POLYETHYLENE GLYCOL 17 GM PKG PO SCH (08:37)
[2017-01-13] MEDS: PANTOPRAZOLE SODIUM 40 MG VIAL IV PUSH SCH ×2 (11:16→21:03)
--- NOTE | 2017-01-13 11:16 | HHI.PR ---
Subjective Remarks Follow-up for multiple medical conditions listed assessment and plan Patient stated he feels awful all over. He is complaining of muscle aches. He stated that he wants to go home. Denies any shortness of breathing. No acute events overnight. Patient also asking for cream on his butt. Dealt with patient's nurses. Objective Vitals Vital Signs Date Time Temp Pulse Resp B/P (MAP) Pulse Ox O2 Delivery O2 Flow Rate FiO2 01/13/17 11:06 97 Room Air 01/13/17 11:05 98.1 94 18 103/41 (61) 97 01/13/17 10:00 90 01/13/17 09:23 99 Nasal Cannula 1.00 01/13/17 09:00 84 01/13/17 08:00 78 01/13/17 07:35 Nasal Cannula 2.00 01/13/17 07:21 81 18 108/48 (68) 100 01/13/17 07:00 83 01/13/17 06:00 87 01/13/17 05:00 87 01/13/17 04:49 97 Nasal Cannula 2.00 01/13/17 04:00 84 01/13/17 03:30 98.1 86 16 111/50 (70) 95 01/13/17 03:30 95 Nasal Cannula 2.00 01/13/17 03:00 82 01/13/17 02:00 81 01/13/17 01:00 84 01/13/17 00:00 86 01/12/17 23:00 97.6 86 18 106/50 (68) 99 01/12/17 23:00 86 01/12/17 23:00 99 Nasal Cannula 2.00 01/12/17 22:17 98 Nasal Cannula 2.00 01/12/17 22:00 82 01/12/17 21:00 84 01/12/17 20:00 98.2 87 18 114/56 (75) 98 01/12/17 20:00 84 01/12/17 20:00 98 Nasal Cannula 2.00 01/12/17 19:33 18 01/12/17 19:00 88 01/12/17 18:00 90 01/12/17 17:37 18 01/12/17 17:00 83 01/12/17 16:18 99 Nasal Cannula 2.00 01/12/17 16:00 82 01/12/17 15:13 98.2 81 18 111/50 (70) 100 01/12/17 15:00 82 01/12/17 15:00 Nasal Cannula 2.00 01/12/17 14:00 79 01/12/17 13:00 86 01/12/17 12:00 88 I/O 01/12/17 01/12/17 01/12/17 01/13/17 01/13/17 01/13/17 06:59 14:59 22:59 06:59 14:59 22:59 Intake Total 480 ml 50 ml 1120 ml 480 ml Output Total 2365 ml 1740 ml 2170 ml Balance -1885 ml 50 ml -620 ml -1690 ml Intake Oral 480 ml 620 ml 480 ml IV Total 50 ml 500 ml Output Urine Total 1825 ml 1350 ml 1500 ml Chest Tube Drainage Total 540 ml 390 ml 670 ml # Voids 1 # Bowel Movements 0 0 0 Result Diagram: 01/13/17 0547 01/13/17546 Objective Remarks GENERAL: Patient sitting up in bed in no acute distress. CARDIOVASCULAR: tachycardic irregular heart rhythm. 3/6 murmur. RESPIRATORY: Clear to auscultation. Breath sounds equal bilaterally. No wheezes right chest tube in place. GASTROINTESTINAL: Abdomen soft, non-tender, nondistended. MUSCULOSKELETAL: sitting up on side of bed, able to move his upper extremities. +1-2 lower extremity edema. SKIN: gluteal skin breakage Procedures Right axillary art line 12/02/16 Left subclavian central venous line 12/02/16 (Dr. Delarosa) intubation 12/02/16 and 01/01/17 PCI with bare metal stent to LCx by Dr. Krause on 11/30/16 port removal 12/02/16 Dr. Rich. EUS with esophageal stent placement, food bolus removal 12/25/16 Dr. Tejeda Right thoracentesis 12/30/16 (Dr. Harding) Pericardiocentesis and pericardial drain 01/01/17 (Dr. Bueno) Placement of Left #10 [place] pigtail catheter 01/03. Was dislodged 01/09. Placement of right #10 [place] pigtail catheter 01/06 Medications and IVs Current Medications Sodium Chloride 1,000 ml @ 999 mls/hr BOLUS ONCE IV Last administered on 11/30 01:52; Start 11/30/16 at 00:00; Stop 11/30/16 at 01:00; Status DC Morphine Sulfate (Morphine Inj) 4 mg ONCE ONCE IV PUSH Last administered on 01:53; Start 11/30/16 at 01:00; Stop 11/30/16 at 01:01; Status DC Potassium Bicarb/ Potassium Chloride (K-Lyte Cl Eff) 75 meq ONCE ONCE PO Last administered on 11/30/16 01:53; Start 11/30/16 at 01:30; Stop 11/30/16 at 01:31; Status DC Iohexol (Omnipaque 350 Inj) 75 ml STK-MED ONCE IV ; Start 11/30/16 at 01:37; Stop 11/30/16 at 01:38; Status DC Calcium Gluconate (Calcium Gluconate Inj) 1 gm ONCE ONCE IV PUSH Last administered on 11/30/16 02:58; Start 11/30/16 at 02:45; Stop 11/30/16 at 02:46 ; Status DC Sodium Chloride 1,000 ml @ 100 mls/hr Q10H IV Last administered on 11/30/16 02:58; Start 11/30/16 at 02:33; Stop 11/30/16 at 13:54; Status DC Sodium Chloride (NS Flush) 2 ml UNSCH PRN IV FLUSH FLUSH AFTER USING IV ACCESS Last administered on 12/24/16 09:59; Start 11/30/16 at 02:45 Sodium Chloride (NS Flush) 2 ml BID IV FLUSH Last administered on 01/13/17 08: 36; Start 11/30/16 at 09:00 Ondansetron HCl (Zofran Inj) 4 mg Q6H PRN IVP NAUSEA OR VOMITING; Start at 02:45; Stop 11/30/16 at 13:51; Status DC Acetaminophen (Tylenol) 650 mg Q6H PRN PO FEVER/PAIN SCALE 1 TO 2; Start at 02:45; Stop 11/30/16 at 13:54; Status DC Hydromorphone HCl (Dilaudid Pf Inj) 1 mg Q3H PRN IV Pain 6-10 Last administered on 12/04/16 06:52; Start 11/30/16 at 02:45; Stop 12/04/16 at 09:25 ; Status DC Oxycodone HCl (Roxicodone) 5 mg Q4H PRN PO PAIN SCALE 3 TO 5 Last administered on 01/10/17 02:18; Start 11/30/16 at 02:45; Stop 01/10/17 at 13:19; Status DC Senna/Docusate Sodium (Rere-Colace) 1 tab BID PO Last administered on 08:21; Start 11/30/16 at 09:00 Magnesium Hydroxide (Milk Of Magnesia Liq) 30 ml Q12H PRN PO MILD - MODERATE CONSTIPATION; Start 11/30/16 at 02:45 Sennosides (Senokot) 17.2 mg Q12H PRN PO MODERATE - SEVERE CONSTIPATION; Start 11/30/16 at 02:45 Bisacodyl (Dulcolax Supp) 10 mg DAILY PRN RECTAL SEVERE CONSITIPATION; Start at 02:45 Lactulose (Lactulose Liq) 30 ml DAILY PRN PO SEVERE CONSITIPATION; Start at 02:45 Pantoprazole Sodium (Protonix Inj) 40 mg Q12H IV PUSH Last administered on 12/12 21:10; Start 11/30/16 at 09:00; Stop 12/13/16 at 08:25; Status DC Miscellaneous Information Patient in critical care unit? Ass... Q361D .XX ; Start 11/30/16 at 05:15 Chlorhexidine Gluconate (Chlorhexidine 2% Cloth) 3 pack DAILY@04 TOPICAL Last administered on 12/05/16 04:00; Start 12/01/16 at 04:00; Stop 12/05/16 at 04:01 ; Status DC Chlorhexidine Gluconate (Chlorhexidine 2% Cloth) 3 pack UNSCH PRN TOPICAL HYGIENIC CARE; Start 11/30/16 at 05:15; Stop 12/05/16 at 05:12; Status DC Aspirin (Aspirin Chew) 81 mg ONCE ONCE PO Last administered on 11/30/16 12:19 ; Start 11/30/16 at 12:00; Stop 11/30/16 at 12:01; Status DC Heparin Sodium/ Dextrose 250 ml @ 0 mls/hr TITRATE IV Last administered on 11/30 12:21; Start 11/30/16 at 12:15; Stop 11/30/16 at 13:49; Status DC Heparin Sodium (Porcine) (Heparin Inj) 5,000 units UNSCH PRN IV aPTT less than 25; Start 11/30/16 at 12:15; Stop 11/30/16 at 13:49; Status DC Heparin Sodium (Porcine) (Heparin Inj) 2,500 units UNSCH PRN IV aPTT 25 to 39; Start 11/30/16 at 12:15; Stop 11/30/16 at 13:49; Status DC Heparin Sodium (Porcine) (Heparin Inj) 4,000 units ONCE ONCE IV Last administered on 11/30/16 12:19; Start 11/30/16 at 12:15; Stop 11/30/16 at 12:16 ; Status DC Heparin Sodium/ Sodium Chloride 500 ml @ As Directed STK-MED ONCE .ROUTE Last administered on 11/30/16 12:36; Start 11/30/16 at 12:36; Stop 11/30/16 at 12:37 ; Status DC Midazolam HCl (Versed Inj) 2 mg STK-MED ONCE .ROUTE Last administered on 12:36; Start 11/30/16 at 12:36; Stop 11/30/16 at 12:37; Status DC Fentanyl Citrate (fentaNYL INJ) 100 mcg STK-MED ONCE .ROUTE Last administered on 11/30/16 12:36; Start 11/30/16 at 12:36; Stop 11/30/16 at 12:37; Status DC Dextrose (D50w (Syr) Inj) 50 ml STK-MED ONCE .ROUTE Last administered on 12:53; Start 11/30/16 at 12:53; Stop 11/30/16 at 12:54; Status DC Phenylephrine HCl (Neosynephrine Inj) 40 mg STK-MED ONCE .ROUTE Last administered on 11/30/16 13:04; Start 11/30/16 at 13:04; Stop 11/30/16 at 13:05 ; Status DC Clopidogrel Bisulfate (Plavix) 600 mg STK-MED ONCE .ROUTE ; Start 11/30/16 at 13 :25; Stop 11/30/16 at 13:26; Status DC Sodium Chloride 1,000 ml @ 125 mls/hr Q8H IV Last administered on 11/30/16 21 :51; Start 11/30/16 at 13:42; Stop 11/30/16 at 17:41; Status DC Acetaminophen (Tylenol) 325 mg Q4H PRN PO PAIN SCALE 1 TO 2 Last administered on 12/13/16 17:13; Start 11/30/16 at 13:45 Aspirin (Aspirin Chew) 81 mg DAILY PO Last administered on 12/21/16 08:29; Start 11/30/16 at 13:45; Stop 12/22/16 at 09:42; Status DC Clopidogrel Bisulfate (Plavix) 600 mg ONCE ONCE PO ; Start 11/30/16 at 13:45; Stop 11/30/16 at 13:47; Status DC Clopidogrel Bisulfate (Plavix) 75 mg DAILY PO Last administered on 12/25/16 08 :06; Start 12/01/16 at 09:00; Stop 01/10/17 at 12:59; Status DC Miscellaneous Information 1 ONCE ONCE XX ; Start 11/30/16 at 13:45; Stop at 13:49; Status DC Atropine Sulfate (Atropine Inj) 0.5 mg UNSCH PRN IV VAGAL REPONSE; Start at 13:45 Ondansetron HCl (Zofran Inj) 4 mg Q4H PRN IV NAUSEA Last administered on 22:41; Start 11/30/16 at 13:45 Metoprolol Tartrate (Lopressor) 12.5 mg BID PO Last administered on 12/01/16 09:51; Start 11/30/16 at 21:00; Stop 12/14/16 at 16:12; Status DC Atorvastatin Calcium (Lipitor) 10 mg HS PO Last administered on 12/02/16 21:22 ; Start 11/30/16 at 21:00; Stop 12/12/16 at 09:02; Status DC Miscellaneous Information HOLD METFORMIN FOR... Q24H .XX ; Start 11/30/16 at 15: 00; Stop 12/02/16 at 14:59; Status DC Potassium Chloride 100 ml @ 50 mls/hr Q2H IV Last administered on 11/30/16 19 :24; Start 11/30/16 at 18:00; Stop 11/30/16 at 21:59; Status DC Sodium Chloride (NS Flush) 5 ml Q21D IV FLUSH Last administered on 12/21/16 17: 19; Start 11/30/16 at 18:00 Heparin Sodium (Porcine) (Heparin Central Flush) 500 units Q21D IV FLUSH Last administered on 11/30/16 18:04; Start 11/30/16 at 18:00 Sodium Chloride (NS Flush) 5 ml UNSCH PRN IV FLUSH SEE LABEL COMMENTS; Start at 18:00 Heparin Sodium (Porcine) (Heparin Central Flush) 250 units UNSCH PRN IV FLUSH FLUSH AFTER USING IV ACCESS Last administered on 01/12/17 05:26; Start at 18:00 Lorazepam (Ativan Inj) 0.5 mg ONCE ONCE IV PUSH Last administered on 06:37; Start 12/01/16 at 06:30; Stop 12/01/16 at 06:31; Status DC Lorazepam (Ativan Inj) 0.5 mg ONCE ONCE IV Last administered on 12/01/16 07: 43; Start 12/01/16 at 07:45; Stop 12/01/16 at 07:46; Status DC Potassium Chloride 30 meq/ Sodium Chloride 115 ml @ 38.333 mls/ hr Q3H IV- CENTRAL Last administered on 12/01/16 12:43; Start 12/01/16 at 08:30; Stop at 14:29; Status DC Vancomycin HCl 2100 mg/Sodium Chloride 521 ml @ 250 mls/hr ONCE ONCE IV Last administered on 12/01/16 12:43; Start 12/01/16 at 12:00; Stop 12/01/16 at 14:06 ; Status DC Pharmacy Profile Note 0 ml @ 0 mls/hr UNSCH OTHER ; Start 12/01/16 at 10:30; Status UNV Pharmacy Profile Note 0 ml @ 0 mls/hr UNSCH OTHER ; Start 12/01/16 at 11:00; Stop 12/01/16 at 13:07; Status DC Vancomycin HCl 1250 mg/Sodium Chloride 262.5 ml @ 262.5 mls/ hr Q24H IV ; Start 12/02/16 at 09:00; Stop 12/02/16 at 09:00; Status DC Ceftriaxone Sodium 2000 mg/ Sodium Chloride 100 ml @ 200 mls/hr Q24H IV ; Start 12/01/16 at 14:00; Stop 12/01/16 at 16:10; Status DC Thiamine HCl 100 mg/Sodium Chloride 101 ml @ 101 mls/hr DAILY IV Last administered on 12/01/16 14:09; Start 12/01/16 at 13:00; Stop 12/02/16 at 08:28 ; Status DC Flumazenil (Romazicon Inj) 0.2 mg Q1M PRN IV PUSH SEE LABEL COMMENTS; Start at 13:00 Lorazepam (Ativan) 1 mg Q4H PRN PO CIWA 8 - 10; Start 12/01/16 at 13:00; Stop 12/04/16 at 09:29; Status DC Lorazepam (Ativan Inj) 1 mg Q4H PRN IV PUSH CIWA 8 - 10 Last administered on 21:52; Start 12/01/16 at 13:00; Stop 12/04/16 at 09:29; Status DC Lorazepam (Ativan) 2 mg Q2H PRN PO CIWA 11-14; Start 12/01/16 at 13:00; Stop at 09:29; Status DC Lorazepam (Ativan Inj) 2 mg Q2H PRN IV PUSH CIWA 11-14 Last administered on t 04:37; Start 12/01/16 at 13:00; Stop 12/04/16 at 09:29; Status DC Lorazepam (Ativan Inj) 2 mg Q1H PRN IV PUSH CIWA 15-20; Start 12/01/16 at 13:00 ; Stop 12/04/16 at 09:29; Status DC Lorazepam (Ativan Inj) 2 mg Q15M PRN IV PUSH CIWA > 20; Start 12/01/16 at 13:00 ; Stop 12/04/16 at 09:29; Status DC Sodium Chloride 1,000 ml @ 999 mls/hr BOLUS ONCE IV Last administered on 12/01 14:09; Start 12/01/16 at 13:00; Stop 12/01/16 at 14:06; Status DC Sodium Chloride 1,000 ml @ 999 mls/hr BOLUS ONCE IV Last administered on 12/01 14:09; Start 12/01/16 at 13:00; Stop 12/01/16 at 14:06; Status DC Morphine Sulfate (Morphine Inj) 8 mg STK-MED ONCE .ROUTE Last administered on 14:06; Start 12/01/16 at 14:04; Stop 12/01/16 at 14:05; Status DC Dexmedetomidine HCl 200 mcg/ Sodium Chloride 52 ml @ 0 mls/hr TITRATE IV ; Start 12/01/16 at 14:30; Stop 12/03/16 at 07:50; Status DC Albuterol/ Ipratropium (Duoneb Neb) 1 ampule Q6HR NEB NEB Last administered on 12/05/16 15:58; Start 12/01/16 at 16:00; Stop 12/05/16 at 16:00; Status DC Albuterol/ Ipratropium (Duoneb Neb) 1 ampule Q2HR NEB PRN NEB SHORTNESS OF BREATH Last administered on 12/28/16 13:14; Start 12/01/16 at 14:30; Stop 12/29 at 15:42; Status DC Cefazolin Sodium/ Dextrose 50 ml @ 100 mls/hr Q8H IV Last administered on 12/03 08:27; Start 12/01/16 at 18:00; Stop 12/06/16 at 09:11; Status DC Pharmacy Profile Note 0 ml @ 0 mls/hr UNSCH OTHER ; Start 12/01/16 at 16:15; Stop 12/03/16 at 10:51; Status DC Sodium Chloride 1,000 ml @ 50 mls/hr Q20H IV Last administered on 12/04/16 05 :40; Start 12/01/16 at 16:30; Stop 12/04/16 at 09:25; Status DC Acetaminophen (Tylenol 650 Mg/ 20 ml Liq) 650 mg Q6H PRN PO FEVER Last administered on 12/02/16 01:07; Start 12/01/16 at 17:30 Vancomycin HCl 2100 mg/Sodium Chloride 521 ml @ 250 mls/hr Q18H IV Last administered on 12/02/16 05:36; Start 12/02/16 at 06:00; Stop 12/02/16 at 11:38 ; Status DC Miscellaneous Information SPECIFIC LAB TO BE DRAWN:VANCO TROUGH DATE TO... ONCE ONCE .XX ; Start 12/03/16 at 17:45; Stop 12/03/16 at 17:46; Status Cancel Sodium Chloride 1,000 ml @ 999 mls/hr BOLUS ONCE IV Last administered on 12/02 06:30; Start 12/02/16 at 06:30; Stop 12/02/16 at 07:30; Status DC Methylprednisolone Sodium Succinate (SoluMEDROL INJ) 125 mg ONCE STAT IV PUSH Last administered on 12/02/16 07:14; Start 12/02/16 at 06:52; Stop 12/02/16 at 06:59; Status DC Methylprednisolone Sodium Succinate (SoluMEDROL INJ) 60 mg Q8HR IV PUSH Last administered on 12/05/16 05:17; Start 12/02/16 at 14:00; Stop 12/05/16 at 09:00 ; Status DC Etomidate (Amidate Inj) 20 mg STK-MED ONCE .ROUTE Last administered on 08:07; Start 12/02/16 at 07:29; Stop 12/02/16 at 07:30; Status DC Midazolam HCl (Versed Inj) 5 mg STK-MED ONCE .ROUTE Last administered on 08:07; Start 12/02/16 at 07:29; Stop 12/02/16 at 07:30; Status DC Rocuronium [place] (Zemuron Inj) 50 mg STK-MED ONCE .ROUTE Last administered on 12/02/16 08:08; Start 12/02/16 at 07:30; Stop 12/02/16 at 07:31; Status DC Enoxaparin Sodium (Lovenox Inj) 40 mg Q24H SQ Last administered on 12/20/16 09: 04; Start 12/02/16 at 09:00; Stop 12/20/16 at 09:13; Status DC Chlorhexidine Gluconate (Peridex 0.12% Liq) 15 ml BID@08,20 MT Last administered on 12/24/16 20:00; Start 12/02/16 at 08:00; Stop 12/25/16 at 21:39 ; Status DC Propofol 100 ml @ 0 mls/hr TITRATE IV Last administered on 12/02/16 19:59; Start 12/02/16 at 08:00; Stop 12/03/16 at 07:50; Status DC Fentanyl Citrate 250 ml @ 0 mls/hr TITRATE IV Last administered on 12/03/16 04 :05; Start 12/02/16 at 08:00; Stop 12/04/16 at 09:25; Status DC Metoprolol Tartrate (Lopressor Inj) 2.5 mg Q6H PRN IV PUSH HR >110 Last administered on 12/20/16 18:38; Start 12/02/16 at 08:15; Stop 12/22/16 at 09:53; Status DC Multivitamins 10 ml/Thiamine HCl 100 mg/Folic Acid 1 mg/Sodium Chloride 511.2 ml @ 125 mls/hr DAILY IV Last administered on 12/04/16 09:21; Start 12/02/16 at 09:00; Stop 12/05/16 at 09:00; Status DC Sodium Bicarbonate (Sodium Bicarbonate 8.4% Inj) 50 meq STK-MED ONCE .ROUTE ; Start 12/02/16 at 09:06; Stop 12/02/16 at 09:07; Status DC Sodium Bicarbonate (Sodium Bicarbonate 8.4% Inj) 50 meq NOW ONCE IV PUSH Last administered on 12/02/16 11:16; Start 12/02/16 at 09:45; Stop 12/02/16 at 09:46 ; Status DC Vasopressin 40 units/Dextrose 100 ml @ 4.5 mls/hr [id number] IV Last administered on 12/03/16 04:17; Start 12/02/16 at 11:04; Stop 12/06/16 at 07:32 ; Status DC Sodium Bicarbonate (Sodium Bicarbonate 8.4% Inj) 50 meq ONCE ONCE IV PUSH Last administered on 12/02/16 11:38; Start 12/02/16 at 11:15; Stop 12/02/16 at 11:22; Status DC Rocuronium [place] (Zemuron Inj) 50 mg BOLUS ONCE IV Last administered on 12/02 11:39; Start 12/02/16 at 11:15; Stop 12/02/16 at 11:22; Status DC Sodium Bicarbonate 50 ml @ As Directed STK-MED ONCE .ROUTE Last administered on 12/02/16 15:53; Start 12/02/16 at 11:06; Stop 12/02/16 at 11:07; Status DC Vancomycin HCl 2000 mg/Sodium Chloride 520 ml @ 250 mls/hr Q18H IV Last administered on 12/02/16 23:46; Start 12/03/16 at 00:00; Stop 12/03/16 at 10:51 ; Status DC Norepinephrine Bitartrate 250 ml @ 0 mls/hr TITRATE IV Last administered on 04:05; Start 12/02/16 at 15:15; Stop 12/08/16 at 10:23; Status DC Terbutaline Sulfate (Brethine Inj) 1 mg UNSCH PRN SQ For Extravasation; Start 12/02/16 at 15:15; Stop 12/29/16 at 15:59; Status DC Sodium Bicarbonate 150 meq/Sterile Water 1,000 ml @ 150 mls/hr Q6H40M IV Last administered on 12/03/16 04:16; Start 12/02/16 at 16:00; Stop 12/03/16 at 07:49 ; Status DC Iohexol (OMNIPAQUE 350 INJ ([employer] Process Technician)) 100 ml STK-MED ONCE OTHER ; Start at 12:30; Stop 12/02/16 at 15:48; Status DC Lidocaine HCl (Xylocaine 1% Inj (50 ml)) 50 ml STK-MED ONCE .ROUTE ; Start 12/02 at 19:06; Stop 12/02/16 at 19:07; Status DC Dextrose (D50w (Vial) Inj) 50 ml UNSCH PRN IV HYPOGLYCEMIA-SEE COMMENTS; Start 12/02/16 at 22:30; Stop 01/11/17 at 12:31; Status DC Glucagon (Glucagon Inj) 1 mg UNSCH PRN OTHER HYPOGLYCEMIA-SEE COMMENTS; Start 12/02/16 at 22:30; Stop 01/11/17 at 12:31; Status DC Insulin Aspart (NovoLOG SUPPLEMENTAL SCALE) 1 Q4HR SQ Last administered on 12/14 04:00; Start 12/03/16 at 00:00; Stop 12/14/16 at 08:16; Status DC Midazolam HCl 100 ml @ 0 mls/hr TITRATE IV ; Start 12/03/16 at 08:00; Stop 12/04 at 09:25; Status DC Polyethylene Glycol (Miralax) 17 gm DAILY PO Last administered on 01/10/17 08: 45; Start 12/04/16 at 09:00 Bumetanide (Bumex Inj) 1 mg STK-MED ONCE .ROUTE ; Start 12/03/16 at 11:46; Stop 12/03/16 at 11:47; Status DC Bumetanide (Bumex Inj) 1 mg NOW ONCE IV PUSH ; Start 12/03/16 at 15:00; Stop at 15:01; Status DC Cefepime HCl 2000 mg/Sodium Chloride 100 ml @ 200 mls/hr Q8H IV Last administered on 12/06/16 08:16; Start 12/03/16 at 17:00; Stop 12/06/16 at 09:08 ; Status DC Bumetanide (Bumex Inj) 1 mg ONCE ONCE IV PUSH Last administered on 12/04/16 10:00; Start 12/04/16 at 09:30; Stop 12/04/16 at 09:32; Status DC Potassium Chloride 100 ml @ 25 mls/hr Q4H IV ; Start 12/04/16 at 10:00; Stop at 17:59; Status DC Morphine Sulfate (Morphine Inj) 2 mg Q3H PRN IV PUSH pain 5-10 Last administered on 12/05/16 05:16; Start 12/04/16 at 09:30; Stop 12/05/16 at 09:01 ; Status DC Potassium Chloride 100 ml @ 50 mls/hr Q2H PRN IV For Potassium 2.8 - 3.2 mEq/ L Last administered on 12/04/16 21:17; Start 12/04/16 at 09:30; Stop 12/16/16 at 07:44; Status DC Potassium Chloride 100 ml @ 50 mls/hr Q2H PRN IV For Potassium 2.8 - 3.2 mEq/L ; Start 12/04/16 at 09:30; Stop 12/16/16 at 07:44; Status DC Potassium Bicarb/ Potassium Chloride (K-Lyte Cl Eff) 50 meq UNSCH PRN PO For Potassium 3.3 - 3.5 mEq/L; Start 12/04/16 at 09:30; Stop 12/16/16 at 07:44; Status DC Potassium Chloride 100 ml @ 25 mls/hr UNSCH PRN IV For Potassium 3.3 - 3.5 mEq /L; Start 12/04/16 at 09:30; Stop 12/16/16 at 07:44; Status DC Potassium Chloride 100 ml @ 50 mls/hr Q2H PRN IV For Potassium 3.3 - 3.5 mEq/L ; Start 12/04/16 at 09:30; Stop 12/16/16 at 07:44; Status DC Magnesium Sulfate 4 gm/Sodium Chloride 100 ml @ 50 mls/hr UNSCH PRN IV For Magnesium 0.9 - 1.1 mg/dL; Start 12/04/16 at 09:30; Stop 12/16/16 at 07:44; Status DC Magnesium Oxide (Mag-Ox) 800 mg UNSCH PRN PO For Magnesium 1.2 - 1.6 mg/dL; Start 12/04/16 at 09:30; Stop 12/16/16 at 07:44; Status DC Magnesium Sulfate 2 gm/Sodium Chloride 100 ml @ 50 mls/hr UNSCH PRN IV For Magnesium 1.2 - 1.6 mg/dL; Start 12/04/16 at 09:30; Stop 12/16/16 at 07:44; Status DC Potassium Phosphate (K-Phos) 2,000 mg Q4H PRN PO For Phosphorus < 2.5 mg/dL; Start 12/04/16 at 09:30; Stop 12/16/16 at 07:45; Status DC Sodium Phosphate 30 mmol/Sodium Chloride 250 ml @ 42 mls/hr UNSCH PRN IV For Phosphorus < 2.5 mg/dL Last administered on 12/06/16t 06:41; Start 12/04/16 at 09:30; Stop 12/16/16 at 07:45; Status DC Potassium Phosphate (K-Phos) 2,000 mg UNSCH PRN PO/TUBE SEE LABEL COMMENTS; Start 12/04/16 at 09:30; Stop 12/16/16 at 07:45; Status DC Potassium Phosphate 30 mmol/ Sodium Chloride 260 ml @ 42 mls/hr UNSCH PRN IV SEE LABEL COMMENTS; Start 12/04/16 at 09:30; Stop 12/16/16 at 07:45; Status DC Potassium Bicarb/ Potassium Chloride (K-Lyte Cl Eff) 25 meq ONCE ONCE PO ; Start 12/04/16 at 09:30; Stop 12/04/16 at 09:42; Status DC Bumetanide (Bumex Inj) 1 mg ONCE ONCE IV PUSH Last administered on 12/04/16 12:32; Start 12/04/16 at 12:00; Stop 12/04/16 at 12:01; Status DC Calcium Gluconate 1 gm/Sodium Chloride 110 ml @ 110 mls/hr ONCE ONCE IV Last administered on 12/05/16 10:29; Start 12/05/16 at 09:30; Stop 12/05/16 at 10:29 ; Status DC Methylprednisolone Sodium Succinate (SoluMEDROL INJ) 40 mg Q12HR IV PUSH Last administered on 12/10/16 20:09; Start 12/05/16 at 09:00; Stop 12/11/16 at 09:04 ; Status DC Thiamine HCl (Vitamin B1) 100 mg DAILY PO Last administered on 01/10/17 11:07 ; Start 12/05/16 at 09:00; Stop 01/10/17 at 13:03; Status DC Multivitamins (Theragran) 1 tab DAILY PO Last administered on 01/13/17 08:20; Start 12/05/16 at 09:00 Folic Acid (Folate) 1 mg DAILY PO Last administered on 12/25/16 08:07; Start 12/05/16 at 09:00; Stop 01/10/17 at 13:20; Status DC Morphine Sulfate (Morphine Inj) 2 mg Q2H PRN IV PUSH pain 5-10 Last administered on 12/17/16 01:20; Start 12/05/16 at 10:30; Stop 12/17/16 at 10:52; Status DC Albuterol/ Ipratropium (Duoneb Neb) 1 ampule Q4HR NEB NEB Last administered on 12/10/16 03:40; Start 12/06/16 at 08:00; Stop 12/10/16 at 08:00; Status DC Sodium Chloride 1,000 ml @ 125 mls/hr Q8H IV Last administered on 12/07/16 21 :33; Start 12/06/16 at 07:30; Stop 12/08/16 at 10:23; Status DC Rifampin (Rifampin) 300 mg Q12HR PO Last administered on 01/13/17 08:22; Start 12/06/16 at 09:15; Stop 01/15/17 at 23:00; Status Future hold Cefazolin Sodium/ Dextrose 50 ml @ 100 mls/hr Q8H IV Last administered on 01/01 09:53; Start 12/06/16 at 10:00; Stop 01/01/17 at 12:49; Status DC Levofloxacin (Levaquin) 750 mg Q24H PO Last administered on 12/12/16 08:58; Start 12/06/16 at 10:00; Stop 12/13/16 at 09:59; Status DC Insulin Detemir (Levemir Inj) 5 units Q12HR SQ Last administered on 12/13/16 21:29; Start 12/07/16 at 09:00; Stop 12/14/16 at 08:17; Status DC Methylnaltrexone [place] (Relistor Inj) 12 mg ONCE ONCE SQ Last administered on 12/07/16 16:58; Start 12/07/16 at 15:00; Stop 12/07/16 at 15:11; Status DC Metoprolol Tartrate (Lopressor Inj) 2.5 mg ONCE ONCE IV PUSH Last administered on 12/08/16 15:15; Start 12/08/16 at 15:00; Stop 12/08/16 at 15:01 ; Status DC Diltiazem HCl (Cardizem Inj) 10 mg ONCE ONCE IV ; Start 12/08/16 at 15:15; Stop 12/08/16 at 16:09; Status DC Metoprolol Tartrate (Lopressor) 50 mg Q12HR PO Last administered on 12/13/16 20:52; Start 12/08/16 at 21:00; Stop 12/14/16 at 09:12; Status DC Diltiazem HCl (Cardizem) 60 mg Q6H PO Last administered on 12/18/16 17:25; Start 12/09/16 at 05:00; Stop 12/18/16 at 18:39; Status DC Lorazepam (Ativan Inj) 1 mg Q4H PRN IV PUSH ANXIETY AND/OR AGITATION Last administered on 12/31/16 14:16; Start 12/09/16 at 15:15 Haloperidol Lactate (Haldol Inj) 2 mg Q8H PRN IM AGITATION AND/OR HALLUCINATION ; Start 12/10/16 at 17:00 Methylprednisolone Sodium Succinate (SoluMEDROL INJ) 20 mg Q12HR IV PUSH Last administered on 12/13/16 20:50; Start 12/11/16 at 21:00; Stop 12/13/16 at 22:00 ; Status DC Atorvastatin Calcium (Lipitor) 40 mg HS PO Last administered on 01/12/17 21:19 ; Start 12/12/16 at 21:00; Status Future hold Sodium Chloride (NS Flush) See Protocol DAILY IV FLUSH Last administered on 08:36; Start 12/13/16 at 09:00 Sodium Chloride (NS Flush) See Protocol UNSCH PRN IV FLUSH SEE PROTOCOL TABLE; Start 12/12/16 at 17:00 Heparin Sodium (Porcine) (Heparin Central Flush) See Protocol DAILY IV FLUSH Last administered on 01/13/17 08:20; Start 12/13/16 at 09:00 Heparin Sodium (Porcine) (Heparin Central Flush) See Protocol UNSCH PRN IV FLUSH SEE PROTOCOL TABLE; Start 12/12/16 at 17:00 Sodium Chloride (NS Flush) UNSCH PRN IV FLUSH SEE PROTOCOL TABLE Last administered on 12/19/16 01:59; Start 12/12/16 at 17:00 Sodium Chloride 250 ml @ 15 mls/hr ONCE ONCE IV Last administered on 09:34; Start 12/13/16 at 08:15; Stop 12/14/16 at 00:54; Status DC Acetaminophen (Tylenol) 650 mg Q4H PRN PO SEE LABEL COMMENTS; Start 12/13/16 at 08:15; Stop 12/13/16 at 12:16; Status DC Diphenhydramine HCl (Benadryl) 25 mg Q4H PRN PO SEE LABEL COMMENTS; Start 12/13 at 08:15; Stop 12/13/16 at 12:16; Status Cancel Prednisone (Deltasone) 40 mg DAILY PO Last administered on 12/16/16 08:53; Start 12/14/16 at 09:00; Stop 12/16/16 at 09:28; Status DC Pantoprazole Sodium (Protonix) 40 mg Q12HR PO Last administered on 12/22/16 09: 01; Start 12/13/16 at 09:00; Stop 12/22/16 at 09:49; Status DC Diphenhydramine HCl (Benadryl) 25 mg Q4H PRN PO SEE LABEL COMMENTS; Start 12/13 at 17:15; Stop 12/13/16 at 21:16; Status DC Insulin Aspart (NovoLOG SUPPLEMENTAL SCALE) 1 ACHS SLIDING SCALE SQ Last administered on 12/24/16 21:13; Start 12/14/16 at 11:00; Stop 12/25/16 at 21:39 ; Status DC Insulin Detemir (Levemir Inj) 6 units Q12HR SQ Last administered on 12/30/16 09:27; Start 12/14/16 at 09:00; Stop 12/30/16 at 12:40; Status DC Metoprolol Tartrate (Lopressor) 75 mg Q12HR PO Last administered on 12/14/16 12:00; Start 12/14/16 at 12:00; Stop 12/14/16 at 16:10; Status DC Etomidate (Amidate Inj) 25 mg ONCE ONCE IVP ; Start 12/14/16 at 12:15; Stop at 18:48; Status DC Fentanyl Citrate (fentaNYL INJ) 200 mcg ONCE ONCE IV ; Start 12/14/16 at 12:15 ; Stop 12/14/16 at 18:48; Status DC Succinylcholine Chloride (Quelicin Inj) 150 mg ONCE ONCE IV ; Start 12/14/16 at 12:15; Stop 12/14/16 at 18:48; Status DC Metoprolol Tartrate (Lopressor) 100 mg Q12HR PO Last administered on 12/22/16 09:01; Start 12/14/16 at 21:00; Stop 12/22/16 at 12:48; Status DC Metoprolol Tartrate (Lopressor) 25 mg ONCE ONCE PO Last administered on 16:55; Start 12/14/16 at 16:15; Stop 12/14/16 at 16:16; Status DC Iron Sucrose 100 mg/Sodium Chloride 105 ml @ 105 mls/hr DAILY IV Last administered on 12/18/16 08:01; Start 12/16/16 at 09:00; Stop 12/18/16 at 09:59; Status DC Nitroglycerin (Nitrostat Sl) 0.4 mg Q5M PRN SL CHEST PAIN; Start 12/16/16 at 00: 15 Prednisone (Deltasone) 20 mg DAILY PO Last administered on 12/20/16 09:04; Start 12/17/16 at 09:00; Stop 12/20/16 at 10:01; Status DC Gadodiamide (Omniscan Pf Inj) 21 ml STK-MED ONCE IV Last administered on 15:41; Start 12/17/16 at 15:41; Stop 12/17/16 at 15:42; Status DC Oxycodone HCl (Roxicodone) 10 mg Q4H PRN PO PAIN 6-10 Last administered on 02:37; Start 12/17/16 at 19:00; Stop 12/21/16 at 08:51; Status DC Diltiazem HCl (Cardizem Inj) 20 mg ONCE PRN IV if HR 110-130 Last administered on 12/17/16 21:49; Start 12/17/16 at 21:30; Stop 12/17/16 at 22:30; Status DC Diltiazem HCl (Cardizem Inj) 20 mg ONCE ONCE IVP ; Start 12/17/16 at 21:30; Stop 12/17/16 at 21:40; Status DC Diltiazem HCl 125 mg/Sodium Chloride 125 ml @ 0 mls/hr TITRATE IV Last administered on 12/17/16 22:12; Start 12/17/16 at 21:30; Stop 12/19/16 at 18:12; Status DC Lorazepam (Ativan) 0.5 mg DAILY PRN PO ANXIETY Last administered on 12/19/16 08 :29; Start 12/18/16 at 15:45; Status Future Hold Diltiazem HCl (Cardizem) 90 mg Q6H PO Last administered on 12/25/16 12:14; Start 12/18/16 at 23:00; Status Future Hold Diltiazem HCl (Cardizem) 30 mg NOW ONCE PO Last administered on 12/18/16 19:33 ; Start 12/18/16 at 19:30; Stop 12/18/16 at 19:31; Status DC Diltiazem HCl (Cardizem Inj) 10 mg NOW ONCE IV Last administered on 12/18/16 19:32; Start 12/18/16 at 19:30; Stop 12/18/16 at 19:31; Status DC Alteplase, Recombinant (Cathflo Activase Inj) 2 mg UNSCH X1 IV FLUSH ; Start at 19:45; Stop 12/18/16 at 23:00; Status DC Metoprolol Tartrate (Lopressor Inj) 5 mg ONCE ONCE IV PUSH Last administered on 12/19/16 05:40; Start 12/19/16 at 05:30; Stop 12/19/16 at 05:31; Status DC Digoxin (Lanoxin Inj) 0.5 mg NOW STAT IVS Last administered on 12/19/16 17:19 ; Start 12/19/16 at 16:51; Stop 12/19/16 at 17:04; Status DC Digoxin (Lanoxin Inj) 0.25 mg Q6H IVS Last administered on 12/20/16 03:54; Start 12/19/16 at 23:00; Stop 12/20/16 at 05:01; Status DC Digoxin (Lanoxin) 0.125 mg DAILY PO Last administered on 12/21/16 08:29; Start 12/20/16 at 09:00; Stop 12/21/16 at 11:59; Status DC Furosemide (Lasix Inj) 20 mg ONCE ONCE IV PUSH Last administered on 12/19/16 18:12; Start 12/19/16 at 17:45; Stop 12/19/16 at 17:46; Status DC Potassium Bicarb/ Potassium Chloride (K-Lyte Cl Eff) 25 meq ONCE ONCE PO Last administered on 12/19/16 18:12; Start 12/19/16 at 17:45; Stop 12/19/16 at 17: 46; Status DC Diltiazem HCl 125 mg/Sodium Chloride 125 ml @ 0 mls/hr TITRATE IV Last administered on 12/30/16 16:37; Start 12/19/16 at 18:15; Stop 12/31/16 at 01:45 ; Status DC Diltiazem HCl (Cardizem Inj) 18 mg NOW ONCE IV Last administered on 12/19/16 19:29; Start 12/19/16 at 18:15; Stop 12/19/16 at 18:16; Status DC Apixaban (Eliquis) 5 mg BID PO ; Start 12/20/16 at 10:00; Stop 12/20/16 at 10:00; Status DC Apixaban (Eliquis) 5 mg BID PO Last administered on 12/21/16 21:02; Start at 10:00; Stop 12/22/16 at 09:49; Status DC Diltiazem HCl (Cardizem Inj) 10 mg ONCE ONCE IV ; Start 12/20/16 at 09:30; Stop 12/20/16 at 09:31; Status DC Prednisone (Deltasone) 10 mg DAILY PO Last administered on 12/28/16 08:14; Start 12/21/16 at 09:00; Stop 12/28/16 at 13:58; Status DC Atropine Sulfate (Atropine Inj) 1 mg STK-MED ONCE .ROUTE ; Start 12/20/16 at 12: 45; Stop 12/20/16 at 12:46; Status DC Epinephrine HCl (EPINEPHrine (1:10,000) INJ) 1 mg STK-MED ONCE .ROUTE ; Start at 12:45; Stop 12/20/16 at 12:46; Status DC Acetaminophen (Tylenol) 650 mg ONCE ONCE PO Last administered on 12/20/16 18: 39; Start 12/20/16 at 18:45; Stop 12/20/16 at 18:46; Status DC Diphenhydramine HCl (Benadryl) 25 mg ONCE ONCE PO Last administered on 18:39; Start 12/20/16 at 18:45; Stop 12/20/16 at 18:46; Status DC Calcium Carbonate (Tums Chew) 500 mg ONCE ONCE CHEW Last administered on 00:45; Start 12/21/16 at 00:45; Stop 12/21/16 at 00:46; Status DC Calcium Carbonate (Tums Chew) 500 mg ONCE ONCE CHEW Last administered on 04:52; Start 12/21/16 at 05:00; Stop 12/21/16 at 05:01; Status DC Oxycodone HCl (Roxicodone) 15 mg Q4H PRN PO PAIN 6-10 Last administered on 01/09 21:26; Start 12/21/16 at 11:00; Stop 01/10/17 at 13:19; Status DC Digoxin (Lanoxin Inj) 0.5 mg NOW STAT IVS Last administered on 12/21/16 12:41 ; Start 12/21/16 at 11:49; Stop 12/21/16 at 11:50; Status DC Digoxin (Lanoxin Inj) 0.25 mg Q6H IVS Last administered on 12/21/16 17:19; Start 12/21/16 at 18:00; Stop 12/22/16 at 00:01; Status DC Digoxin (Lanoxin) 0.25 mg DAILY PO Last administered on 12/25/16 08:06; Start 12/22/16 at 09:00; Status Future Hold Calcium Carbonate (Tums Chew) 500 mg ONCE ONCE CHEW ; Start 12/22/16 at 01:00; Stop 12/22/16 at 01:01; Status DC Heparin Sodium (Porcine) (Heparin Inj) 5,000 units UNSCH PRN IV APTT LESS THAN 25; Start 12/22/16 at 15:15; Stop 12/23/16 at 00:05; Status DC Heparin Sodium (Porcine) (Heparin Inj) 2,500 units UNSCH PRN IV APTT 25 TO 39; Start 12/22/16 at 15:15; Stop 12/23/16 at 00:05; Status DC Heparin Sodium/ Dextrose 250 ml @ 0 mls/hr TITRATE IV ; Start 12/22/16 at 09:15; Stop 12/22/16 at 09:42; Status DC Sucralfate (Carafate Liq) 1 gm ACHS PO Last administered on 01/13/17 06:21; Start 12/22/16 at 11:00 Metoprolol Tartrate (Lopressor Inj) 5 mg Q1HR PRN IV PUSH RAPID HEART RATE Last administered on 12/30/16 10:37; Start 12/22/16 at 09:45 Pantoprazole Sodium (Protonix Inj) 40 mg Q12H IV PUSH Last administered on 01/12 21:23; Start 12/22/16 at 10:00 Aspirin (Ecotrin Ec) 81 mg DAILY PO Last administered on 12/25/16 08:06; Start 12/23/16 at 09:00; Stop 01/10/17 at 14:17; Status DC Heparin Sodium/ Dextrose 250 ml @ 0 mls/hr TITRATE IV Last administered on 12:43; Start 12/22/16 at 10:00; Stop 12/23/16 at 00:05; Status DC Metoprolol Tartrate (Lopressor) 25 mg Q6HR PO Last administered on 01/13/17 06 :21; Start 12/22/16 at 13:00 Furosemide (Lasix Inj) 20 mg ONCE ONCE IV PUSH Last administered on 12/22/16 12:44; Start 12/22/16 at 13:00; Stop 12/22/16 at 13:01; Status DC Furosemide (Lasix Inj) 20 mg ONCE IV PUSH Last administered on 12/23/16 02:31; Start 12/22/16 at 23:00; Stop 12/23/16 at 06:00; Status DC Morphine Sulfate (Morphine Inj) 2 mg Q4H PRN IV PUSH pain >5 Last administered on 12/29/16 14:08; Start 12/23/16 at 00:00; Stop 12/29/16 at 15:59; Status DC Diphenhydramine HCl (Benadryl) 25 mg ONCE ONCE PO Last administered on 04:04; Start 12/23/16 at 23:45; Stop 12/23/16 at 23:46; Status DC Acetaminophen (Tylenol) 650 mg ONCE ONCE PO Last administered on 12/24/16 04: 04; Start 12/23/16 at 23:45; Stop 12/23/16 at 23:46; Status DC Furosemide (Lasix Inj) 20 mg DAILY IV PUSH Last administered on 01/06/17 08:59 ; Start 12/24/16 at 09:15; Stop 01/06/17 at 10:08; Status DC Lactated Ringer's 1,000 ml @ 30 mls/hr Q24H PRN IV SEE LABEL COMMENTS; Start at 22:00; Stop 12/26/16 at 14:00; Status DC Sodium Chloride 500 ml @ 30 mls/hr [id number] PRN IV SEE LABEL COMMENTS; Start 12/24/16 at 22:00; Stop 12/27/16 at 21:59; Status DC Metoprolol Tartrate (Lopressor) 25 mg BRANCH SPECIALIST PRN PO SEE LABEL COMMENTS; Start 12/24/16 at 22:00; Stop 12/27/16 at 21:59; Status DC Povidone Iodine (Betadine 5% Antisepsis Kit) 1 applic BRANCH SPECIALIST PRN EACH NARE SEE LABEL COMMENTS; Start 12/24/16 at 22:00; Stop 12/27/16 at 21:59; Status DC Chlorhexidine Gluconate (Chlorhexidine 2% Cloth) 3 pack BRANCH SPECIALIST PRN TOPICAL SEE LABEL COMMENTS; Start 12/24/16 at 22:00; Stop 12/27/16 at 21:59; Status DC Insulin Human Regular (NovoLIN R INJ) See Protocol Table ... BRANCH SPECIALIST PRN SQ SEE PROTOCOL TABLE; Start 12/24/16 at 22:00; Stop 12/25/16 at 21:37; Status DC Propofol 100 ml @ As Directed STK-MED ONCE .ROUTE ; Start 12/25/16 at 19:27; Stop 12/25/16 at 19:28; Status DC Midazolam HCl (Versed Inj) 2 mg STK-MED ONCE .ROUTE ; Start 12/25/16 at 20:09; Stop 12/25/16 at 20:10; Status DC Morphine Sulfate (Morphine Inj) 4 mg STK-MED ONCE .ROUTE ; Start 12/25/16 at 20: 10; Stop 12/25/16 at 20:11; Status DC Propofol 100 ml @ 0 mls/hr TITRATE IV ; Start 12/25/16 at 20:15; Stop 12/25/16 at 21:28; Status DC Propofol (Diprivan 200 Mg/20 ml Inj) 200 mg STK-MED ONCE IV ; Start 12/25/16 at 18:30; Stop 12/25/16 at 20:15; Status DC Phenylephrine HCl (Neosynephrine/ NS 1000 Mcg/10ml Syr) 500 mcg STK-MED ONCE IV ; Start 12/25/16 at 18:32; Stop 12/25/16 at 20:17; Status DC Lactated Ringer's (Lr 1000 ml Inj) 1,000 ml STK-MED ONCE IV ; Start 12/25/16 at 18:32; Stop 12/25/16 at 20:17; Status DC Sodium Chloride (NS 500 ml Inj) 500 ml STK-MED ONCE IV ; Start 12/25/16 at 18:32 ; Stop 12/25/16 at 20:17; Status DC Miscellaneous Information ALL NURSING DEPARTME... UNSCH PRN .XX SEE LABEL COMMENTS; Start 12/25/16 at 20:30; Stop 12/26/16 at 20:29; Status DC Phenylephrine HCl (Neosynephrine Inj) 40 mg STK-MED ONCE .ROUTE ; Start at 20:25; Stop 12/25/16 at 20:26; Status DC Propofol 100 ml @ 0 mls/hr TITRATE IV Last administered on 01/03/17 14:37; Start 12/25/16 at 20:30; Stop 01/03/17 at 20:19; Status DC Phenylephrine HCl (Neosynephrine/ NS 1000 Mcg/10ml Syr) 1,000 mcg STK-MED ONCE .ROUTE ; Start 12/25/16 at 20:28; Stop 12/25/16 at 20:29; Status DC Fentanyl Citrate 250 ml @ As Directed STK-MED ONCE .ROUTE ; Start 12/25/16 at 20:34; Stop 12/25/16 at 20:35; Status DC Phenylephrine HCl 40 mg/Dextrose 500 ml @ 0 mls/hr TITRATE IV Last administered on 12/27/16 03:16; Start 12/25/16 at 20:45; Stop 12/29/16 at 15:59 ; Status DC Terbutaline Sulfate (Brethine Inj) 1 mg UNSCH PRN SQ FOR EXTRAVASATION PROTOCOL ; Start 12/25/16 at 20:45; Stop 12/29/16 at 16:00; Status DC Fentanyl Citrate 250 ml @ 0 mls/hr TITRATE IV ; Start 12/25/16 at 21:00; Stop at 16:00; Status DC Magnesium Oxide (Mag-Ox) 800 mg UNSCH PRN PO For Magnesium 1.2 - 1.6 mg/dL Last administered on 12/27/16 06:46; Start 12/25/16 at 21:00 Magnesium Sulfate 4 gm/Sodium Chloride 100 ml @ 50 mls/hr UNSCH PRN IV For Magnesium 0.9 - 1.1 mg/dL; Start 12/25/16 at 21:00 Magnesium Sulfate 2 gm/Sodium Chloride 100 ml @ 50 mls/hr UNSCH PRN IV For Magnesium 1.2 - 1.6 mg/dL; Start 12/25/16 at 21:00 Potassium Chloride 100 ml @ 50 mls/hr Q2H PRN IV For Potassium 2.8 - 3.2 mEq/L ; Start 12/25/16 at 21:00 Potassium Chloride 100 ml @ 50 mls/hr Q2H PRN IV For Potassium 3.3 - 3.5 mEq/ L Last administered on 01/08/17 04:35; Start 12/25/16 at 21:00 Potassium Chloride 100 ml @ 50 mls/hr Q2H PRN IV For Potassium 2.8 - 3.2 mEq/L ; Start 12/25/16 at 21:00 Potassium Chloride 100 ml @ 25 mls/hr UNSCH PRN IV For Potassium 3.3 - 3.5 mEq /L Last administered on 01/04/17 06:32; Start 12/25/16 at 21:00 Potassium Phosphate (K-Phos) 2,000 mg Q4H PRN PO For Phosphorus < 2.5 mg/dL; Start 12/25/16 at 21:00 Potassium Phosphate (K-Phos) 2,000 mg UNSCH PRN PO/TUBE SEE LABEL COMMENTS; Start 12/25/16 at 21:00 Potassium Phosphate 30 mmol/ Sodium Chloride 260 ml @ 42 mls/hr UNSCH PRN IV SEE LABEL COMMENTS; Start 12/25/16 at 21:00 Sodium Phosphate 30 mmol/Sodium Chloride 250 ml @ 42 mls/hr UNSCH PRN IV For Phosphorus < 2.5 mg/dL Last administered on 12/30/16 06:49; Start 12/25/16 at 21:00 Chlorhexidine Gluconate (Peridex 0.12% Liq) 15 ml BID@08,20 MT Last administered on 01/08/17 19:50; Start 12/26/16 at 08:00; Stop 01/11/17 at 12:33 ; Status DC Dextrose (D50w (Vial) Inj) 25 ml UNSCH PRN IV PUSH HYPOGLYCEMIA-SEE COMMENTS; Start 12/25/16 at 21:00; Stop 01/10/17 at 14:28; Status DC Insulin Human Regular (NovoLIN R SUPPLEMENTAL SCALE) 1 Q6HR SQ Last administered on 01/10/17 12:27; Start 12/26/16 at 00:00; Stop 01/10/17 at 14:28 ; Status DC Albuterol/ Ipratropium (Duoneb Neb) 1 ampule Q6HR NEB INH Last administered on 01/02/17 08:17; Start 12/25/16 at 22:00; Stop 01/02/17 at 15:48; Status DC Albuterol/ Ipratropium (Duoneb Neb) 1 ampule Q2HR NEB PRN INH WHEEZING Last administered on 01/02/17 19:29; Start 12/25/16 at 21:00 Dextrose 1,000 ml @ 42 mls/hr [id number] IV Last administered on 12/25/16 23:27 ; Start 12/25/16 at 21:00; Stop 12/26/16 at 14:01; Status DC Amiodarone HCl 150 mg/Dextrose 100 ml @ 600 mls/hr ONCE ONCE IV ; Start at 21:00; Stop 12/25/16 at 21:09; Status DC Amiodarone HCl 900 mg/Dextrose 500 ml @ 0 mls/hr CONTINUOUS IV ; Start 12/25/16 at 21:00; Stop 12/25/16 at 21:13; Status DC Magnesium Sulfate/ Dextrose 100 ml @ 100 mls/hr Q1H IV ; Start 12/25/16 at 21: 00; Stop 12/25/16 at 22:59; Status DC Potassium Chloride 100 ml @ 50 mls/hr BOLUS ONCE IV ; Start 12/25/16 at 21:00 ; Stop 12/25/16 at 22:59; Status DC Sodium Chloride 250 ml @ As Directed STK-MED ONCE .ROUTE ; Start 12/25/16 at 21 :04; Stop 12/25/16 at 21:05; Status DC Amiodarone HCl (Cordarone Inj) 150 mg STK-MED ONCE .ROUTE ; Start 12/25/16 at 21 :05; Stop 12/25/16 at 21:06; Status DC Amiodarone HCl 450 mg/Dextrose 250 ml @ 0 mls/hr CONTINUOUS IV Last administered on 01/03/17 01:19; Start 12/25/16 at 21:15; Stop 01/03/17 at 12:30 ; Status DC Sodium Chloride 1,000 ml @ 999 mls/hr BOLUS ONCE IV Last administered on 12/26 14:17; Start 12/26/16 at 14:00; Stop 12/26/16 at 15:00; Status DC Sodium Chloride 1,000 ml @ 75 mls/hr [id number] IV Last administered on 16:38; Start 12/26/16 at 14:00; Stop 12/28/16 at 23:00; Status DC Amiodarone HCl 150 mg/Dextrose 100 ml @ 100 mls/hr ONCE ONCE IV Last administered on 12/26/16 23:27; Start 12/26/16 at 23:00; Stop 12/26/16 at 23:59 ; Status DC Clopidogrel Bisulfate (Plavix) 150 mg NOW ONCE PO Last administered on 13:43; Start 12/28/16 at 12:30; Stop 12/28/16 at 12:34; Status DC Aspirin (Ecotrin Ec) 162 mg NOW ONCE PO Last administered on 12/28/16 13:43; Start 12/28/16 at 12:30; Stop 12/28/16 at 12:34; Status DC Clopidogrel Bisulfate (Plavix) 75 mg DAILY PO Last administered on 01/13/17 08 :35; Start 12/29/16 at 09:00 Aspirin (Ecotrin Ec) 162 mg DAILY PO Last administered on 01/13/17 08:22; Start 12/29/16 at 09:00; Status Future hold Prednisone (Deltasone) 5 mg DAILY PO Last administered on 01/13/17 08:21; Start 12/29/16 at 09:00; Status Future hold Furosemide (Lasix Inj) 40 mg ONCE ONCE IV PUSH Last administered on 12/28/16 23:10; Start 12/28/16 at 23:00; Stop 12/28/16 at 23:02; Status DC Atropine Sulfate (Atropine Inj) 1 mg STK-MED ONCE IV ; Start 12/26/16 at 05:00; Stop 12/29/16 at 10:52; Status DC Magnesium Sulfate/ Dextrose 100 ml @ 100 mls/hr Q1H IV Last administered on 17:49; Start 12/29/16 at 16:00; Stop 12/29/16 at 18:59; Status DC Potassium Chloride 100 ml @ 100 mls/hr Q1H IV Last administered on 12/29/16 17:14; Start 12/29/16 at 15:00; Stop 12/29/16 at 17:59; Status DC Metolazone (Zaroxolyn) 5 mg ONCE ONCE PO Last administered on 12/29/16 17:14 ; Start 12/29/16 at 16:00; Stop 12/29/16 at 16:01; Status DC Bumetanide (Bumex Inj) 1 mg ONCE ONCE IV PUSH Last administered on 12/29/16 16:22; Start 12/29/16 at 16:00; Stop 12/29/16 at 16:01; Status DC Levothyroxine Sodium (Synthroid) 50 mcg DAILY@06 PO Last administered on 05:30; Start 12/30/16 at 06:00; Stop 01/10/17 at 13:20; Status DC Sodium Phosphate 30 mmol/Sodium Chloride 260 ml @ 43.333 mls/ hr ONCE ONCE IV ; Start 12/30/16 at 15:00; Stop 12/30/16 at 20:59; Status DC Magnesium Sulfate/ Dextrose 100 ml @ 100 mls/hr Q1H IV Last administered on 14:30; Start 12/30/16 at 12:45; Stop 12/30/16 at 14:44; Status DC Potassium Chloride 100 ml @ 100 mls/hr Q1H IV Last administered on 12/30/16 18:31; Start 12/30/16 at 12:45; Stop 12/30/16 at 15:44; Status DC Insulin Detemir (Levemir Inj) 10 units Q12HR SQ Last administered on 01/03/17 21:05; Start 12/30/16 at 21:00; Stop 01/04/17 at 06:47; Status DC Acetaminophen (Tylenol) 650 mg ONCE ONCE PO Last administered on 12/30/16 23: 45; Start 12/30/16 at 23:45; Stop 12/30/16 at 23:46; Status DC Diphenhydramine HCl (Benadryl) 25 mg ONCE ONCE PO Last administered on 23:45; Start 12/30/16 at 23:45; Stop 12/30/16 at 23:46; Status DC Furosemide (Lasix Inj) 20 mg ONCE ONCE IV PUSH Last administered on 12/31/16 05:16; Start 12/30/16 at 23:45; Stop 12/30/16 at 23:46; Status DC Iohexol (Omnipaque 350 Inj) 75 ml STK-MED ONCE IV Last administered on 01:04; Start 12/31/16 at 01:04; Stop 12/31/16 at 01:05; Status DC Diltiazem HCl 125 mg/Sodium Chloride 125 ml @ 0 mls/hr TITRATE IV Last administered on 01/05/17 02:43; Start 12/31/16 at 01:45; Stop 01/06/17 at 15:03 ; Status DC Dexmedetomidine HCl 200 mcg/ Sodium Chloride 52 ml @ 0 mls/hr TITRATE IV Last administered on 12/31/16 21:25; Start 12/31/16 at 21:15; Stop 12/31/16 at 22:55 ; Status DC Dexmedetomidine HCl 1000 mcg/ Sodium Chloride 250 ml @ 0 mls/hr TITRATE IV Last administered on 01/01/17 00:38; Start 12/31/16 at 23:00; Stop 01/01/17 at 12:01; Status DC Phenylephrine HCl 160 mg/Sodium Chloride 1,016 ml @ 0 mls/hr TITRATE IV ; Start 01/01/17 at 11:00; Stop 01/01/17 at 11:00; Status DC Terbutaline Sulfate (Brethine Inj) 1 mg UNSCH PRN SQ For Extravasation; Start 01/01/17 at 10:45; Stop 01/10/17 at 13:03; Status DC Rocuronium [place] (Zemuron Inj) 100 mg BOLUS ONCE IV Last administered on 10:45; Start 01/01/17 at 10:45; Stop 01/01/17 at 10:46; Status DC Midazolam HCl (Versed Inj) 5 mg ONCE ONCE IM Last administered on 01/01/17 10 :45; Start 01/01/17 at 10:45; Stop 01/01/17 at 10:46; Status DC Chlorhexidine Gluconate (Peridex 0.12% Liq) 15 ml BID@08,20 MT Last administered on 01/08/17 19:50; Start 01/01/17 at 20:00 Propofol 100 ml @ 0 mls/hr TITRATE IV Last administered on 01/06/17 13:24; Start 01/01/17 at 10:45; Stop 01/08/17 at 14:39; Status DC Fentanyl Citrate 250 ml @ 0 mls/hr TITRATE IV Last administered on 01/06/17 04 :51; Start 01/01/17 at 10:45; Stop 01/06/17 at 15:05; Status DC Phenylephrine HCl 160 mg/Sodium Chloride 516 ml @ 0 mls/hr TITRATE IV Last administered on 01/06/17 11:20; Start 01/01/17 at 11:00; Stop 01/06/17 at 15:04 ; Status DC Furosemide (Lasix Inj) 40 mg ONCE ONCE IV PUSH Last administered on 01/01/17 14:41; Start 01/01/17 at 13:00; Stop 01/01/17 at 13:01; Status DC Vancomycin HCl 1000 mg/Sodium Chloride 250 ml @ 250 mls/hr ONCE ONCE IV Last administered on 01/01/17 14:30; Start 01/01/17 at 14:30; Stop 01/01/17 at 15:29 ; Status DC Cefepime HCl 2000 mg/Sodium Chloride 100 ml @ 200 mls/hr Q12H IV Last administered on 01/07/17 02:47; Start 01/01/17 at 14:00; Stop 01/07/17 at 10:17 ; Status DC Vancomycin HCl 1000 mg/Sodium Chloride 250 ml @ 250 mls/hr ONCE ONCE IV Last administered on 01/02/17 16:02; Start 01/02/17 at 14:30; Stop 01/02/17 at 15:29 ; Status DC Potassium Chloride 100 ml @ 25 mls/hr BOLUS ONCE IV ; Start 01/03/17 at 08:30 ; Stop 01/03/17 at 12:30; Status DC Aspirin (Aspirin Supp) 300 mg DAILY RECTAL Last administered on 01/09/17 09:20 ; Start 01/03/17 at 09:00; Stop 01/10/17 at 12:59; Status DC Levothyroxine Sodium (Synthroid Inj) 25 mcg DAILY@06 IV PUSH Last administered on 01/10/17 06:45; Start 01/04/17 at 06:00; Stop 01/10/17 at 13:21; Status DC Rifampin 300 mg/ Sodium Chloride 100 ml @ 100 mls/hr Q12H IV Last administered on 01/10/17 12:28; Start 01/03/17 at 10:00; Stop 01/10/17 at 13:10 ; Status DC Albuterol/ Ipratropium (Duoneb Neb) 1 ampule Q6HR NEB NEB Last administered on 01/06/17 12:45; Start 01/03/17 at 10:00; Stop 01/06/17 at 10:50; Status DC Methylprednisolone Sodium Succinate (SoluMEDROL INJ) 20 mg DAILY IV PUSH Last administered on 01/10/17 08:46; Start 01/03/17 at 09:00; Stop 01/10/17 at 14:32 ; Status DC Amiodarone HCl 450 mg/Sodium Chloride 250 ml @ 0 mls/hr CONTINUOUS IV Last administered on 01/07/17 08:45; Start 01/03/17 at 13:00; Stop 01/07/17 at 09:29 ; Status DC Lidocaine HCl (Xylocaine 1% Inj (50 ml)) 50 ml STK-MED ONCE .ROUTE ; Start 01/03 at 12:33; Stop 01/03/17 at 12:34; Status DC Multivitamins 10 ml/Folic Acid 1 mg/Amino Acids/ Electrolytes/ Dextrose 2,010.2 ml @ 30 mls/hr Q24H IV-CENTRAL Last administered on 01/11/17 00:57; Start at 20:00; Stop 01/11/17 at 12:10; Status DC Insulin Detemir (Levemir Inj) 20 units Q12HR SQ Last administered on 01/06/17 09:00; Start 01/04/17 at 09:00; Stop 01/06/17 at 10:07; Status DC Potassium Chloride 100 ml @ 25 mls/hr BOLUS ONCE IV ; Start 01/04/17 at 07:00 ; Stop 01/04/17 at 10:59; Status DC Magnesium Sulfate/ Dextrose 100 ml @ 100 mls/hr Q1H IV Last administered on 08:00; Start 01/04/17 at 07:00; Stop 01/04/17 at 08:59; Status DC Methylnaltrexone [place] (Relistor Inj) 12 mg ONCE ONCE SQ Last administered on 01/04/17 07:30; Start 01/04/17 at 07:30; Stop 01/04/17 at 07:31; Status DC Mineral Oil (Fleet Mineral Oil Enema) 118 ml ONCE ONCE RECTAL Last administered on 01/04/17 07:00; Start 01/04/17 at 07:00; Stop 01/04/17 at 07:01 ; Status DC Artificial Tears (Tears Naturale Opth Soln) 1 drop Q8HR EACH EYE Last administered on 01/13/17 06:24; Start 01/04/17 at 14:00 Albuterol/ Ipratropium (Duoneb Neb) 1 ampule Q6HR NEB NEB Last administered on 01/10/17 09:02; Start 01/06/17 at 16:00; Stop 01/10/17 at 13:10; Status DC Albuterol/ Ipratropium (Duoneb Neb) 1 ampule Q6HR NEB NEB ; Start 01/06/17 at 16:00; Stop 01/06/17 at 16:00; Status DC Insulin Detemir (Levemir Inj) 30 units Q12HR SQ Last administered on 01/13/17 08:23; Start 01/06/17 at 21:00 Albumin Human (Albumin 25% Inj) 25 gm Q12H IV Last administered on 01/07/17 22 :27; Start 01/06/17 at 11:00; Stop 01/08/17 at 10:59; Status DC Furosemide (Lasix Inj) 20 mg Q12HR IV PUSH Last administered on 01/11/17 08:48 ; Start 01/06/17 at 21:00; Stop 01/11/17 at 11:52; Status DC Furosemide (Lasix Inj) 20 mg ONCE ONCE IV PUSH Last administered on 01/06/17 11:25; Start 01/06/17 at 10:15; Stop 01/06/17 at 10:23; Status DC Potassium Chloride 100 ml @ 25 mls/hr BOLUS ONCE IV Last administered on 01/06 13:25; Start 01/06/17 at 12:00; Stop 01/06/17 at 15:59; Status DC Acetazolamide Sodium (Diamox Inj) 500 mg ONCE ONCE IV PUSH Last administered on 01/06/17 11:25; Start 01/06/17 at 10:30; Stop 01/06/17 at 10:31; Status DC Diltiazem HCl 125 mg/Sodium Chloride 125 ml @ 5 mls/hr TITRATE PRN IV Blood Pressure Management; Start 01/06/17 at 15:15; Stop 01/07/17 at 09:29; Status DC Phenylephrine HCl 160 mg/Sodium Chloride 516 ml @ 7.74 mls/hr TITRATE PRN IV Blood Pressure Management; Start 01/06/17 at 15:15; Stop 01/10/17 at 13:19; Status DC Fentanyl Citrate 250 ml @ 5 mls/hr TITRATE PRN IV PAIN MANAGEMENT; Start at 15:15; Stop 01/10/17 at 13:01; Status DC Sodium Chloride 250 ml @ 15 mls/hr ONCE ONCE IV ; Start 01/06/17 at 17:00; Stop 01/07/17 at 10:04; Status DC Amiodarone HCl (Cordarone) 200 mg Q12HR PO Last administered on 01/13/17 08:21 ; Start 01/07/17 at 10:00 Cefepime HCl 2000 mg/Sodium Chloride 100 ml @ 200 mls/hr Q8H IV ; Start at 18:00; Stop 01/07/17 at 18:00; Status DC Furosemide (Lasix Inj) 40 mg ONCE ONCE IV PUSH Last administered on 01/07/17 11:22; Start 01/07/17 at 10:30; Stop 01/07/17 at 11:00; Status DC Potassium Chloride 100 ml @ 25 mls/hr BOLUS ONCE IV Last administered on 01/07 11:24; Start 01/07/17 at 10:30; Stop 01/07/17 at 14:29; Status DC Cefazolin Sodium/ Dextrose 50 ml @ 100 mls/hr Q8H IV Last administered on 01/13 08:19; Start 01/07/17 at 17:00; Stop 01/15/17 at 16:59 Levofloxacin (Levaquin) 750 mg DAILY@1700 PO ; Start 01/07/17 at 17:00; Stop at 16:59; Status Cancel Levofloxacin (Levaquin) 750 mg DAILY@1800 PO Last administered on 01/12/17 18: 20; Start 01/07/17 at 18:00; Stop 01/14/17 at 17:59 Propofol 100 ml @ 0 mls/hr TITRATE IV ; Start 01/08/17 at 14:45; Stop 01/10/17 at 12:59; Status DC Albuterol/ Ipratropium (Duoneb Neb) 1 ampule Q6HR NEB NEB Last administered on 01/13/17 09:20; Start 01/10/17 at 16:00 Levothyroxine Sodium (Synthroid) 50 mcg DAILY@0600 PO Last administered on 01/13 06:21; Start 01/11/17 at 06:00 Oxycodone/ Acetaminophen (Percocet 10-325 Mg) 1 tab Q4H PRN PO PAIN 1-10 Last administered on 01/13/17 08:21; Start 01/10/17 at 14:15 Oxycodone HCl (Roxicodone) 5 mg Q4H PRN PO BREAKTHROUGH PAIN Last administered on 01/12/17 23:06; Start 01/10/17 at 14:15 Potassium Chloride 100 ml @ 25 mls/hr BOLUS ONCE IV Last administered on 01/10 16:07; Start 01/10/17 at 15:30; Stop 01/10/17 at 19:29; Status DC Dextrose (D50w (Vial) Inj) 50 ml UNSCH PRN IV HYPOGLYCEMIA-SEE COMMENTS; Start 01/10/17 at 14:30; Stop 01/11/17 at 12:31; Status DC Glucagon (Glucagon Inj) 1 mg UNSCH PRN OTHER HYPOGLYCEMIA-SEE COMMENTS; Start 01/10/17 at 14:30; Stop 01/11/17 at 12:31; Status DC Insulin Aspart (NovoLOG SUPPLEMENTAL SCALE) 1 Q4H SQ Last administered on 00:00; Start 01/10/17 at 16:00; Stop 01/11/17 at 12:03; Status DC Temazepam (Restoril) 15 mg HS PRN PO SLEEP Last administered on 01/11/17 23:40 ; Start 01/11/17 at 11:45 Furosemide (Lasix Inj) 20 mg Q8H IV PUSH Last administered on 01/12/17 12:00; Start 01/11/17 at 12:00; Stop 01/12/17 at 14:57; Status DC Potassium Bicarb/ Potassium Chloride (K-Lyte Cl Eff) 25 meq Q12HR NG Last administered on 01/11/17 20:16; Start 01/11/17 at 12:00; Stop 01/11/17 at 21:01 ; Status DC Dextrose (D50w (Vial) Inj) 50 ml UNSCH PRN IV HYPOGLYCEMIA-SEE COMMENTS; Start 01/11/17 at 12:15 Glucagon (Glucagon Inj) 1 mg UNSCH PRN OTHER HYPOGLYCEMIA-SEE COMMENTS; Start 01/11/17 at 12:15 Insulin Aspart (NovoLOG SUPPLEMENTAL SCALE) 1 ACHS SLIDING SCALE SQ Last administered on 01/12/17 21:22; Start 01/11/17 at 16:00 Multivitamins 10 ml/Folic Acid 1 mg/Amino Acids/ Electrolytes/ Dextrose 1,010.2 ml @ 30 mls/hr Q24H IV Last administered on 01/11/17 19:57; Start 01/11/17 at 20:00; Stop 01/12/17 at 16:08; Status DC Furosemide (Lasix Inj) 20 mg Q12HR IV PUSH Last administered on 01/13/17 08:20 ; Start 01/12/17 at 21:00 A/P Problem List: (1) Intractable abdominal pain ICD Code: R10.9 - Unspecified abdominal pain Status: Acute (2) Esophageal carcinoma ICD Code: C15.9 - Malignant neoplasm of esophagus, unspecified Status: Acute (3) SCC (squamous cell carcinoma) ICD Code: C44.92 - Squamous cell carcinoma of skin, unspecified Status: Acute (4) Hypokalemia ICD Code: E87.6 - Hypokalemia Status: Acute (5) Lactic acidosis ICD Code: E87.2 - Acidosis Status: Acute (6) Renal insufficiency ICD Code: N28.9 - Disorder of kidney and ureter, unspecified Status: Acute (7) Elevated troponin ICD Code: R74.8 - Abnormal levels of other serum enzymes Status: Acute (8) DM (diabetes mellitus) ICD Code: E11.9 - Type 2 diabetes mellitus without complications Status: Acute (9) Tobacco abuse ICD Code: Z72.0 - Tobacco abuse Status: Acute (10) NSTEMI (non-ST elevated myocardial infarction) ICD Code: I21.4 - Non-ST elevation (NSTEMI) myocardial infarction Status: Acute (11) Bacteremia due to Gram-positive bacteria ICD Code: R78.81 - Bacteremia Status: Acute (12) Encephalopathy, metabolic ICD Code: G93.41 - Metabolic encephalopathy Status: Acute Assessment and Plan Acute metabolic encephalopathy-improved Possible alcohol withdrawal, improved. Chronic oxycodone use Encephalopathy most likely secondary to hypoxia, sepsis, now resolved. Completed therapy with Thiamine for EtOH withdrawal 12/05. Discontinue 01/10. Continue MVI daily. Acetaminophen for fever Currently off all sedation. On Percocet 10 q4. Oxycodone additional 5 as needed for breakthrough. Restoril 15 qhs prn sleep Acute hypoxemic respiratory failure - multifactorial, resolved History of COPD Anterior airway Tobacco abuse Bilateral pleural effusions - Emergently intubated and placed on mechanical ventilation 12/02/16, extubated 12/03/16 - Re intubated 01/01/17 PRVC ventilation 16/550/1//35. Extubated 01/06 -Now on nasal cannula. - CT chest revealed bilateral pleural effusions. Thoracentesis -1200 cc 12/30. Placement of Left #10 Gabonese pigtail catheter 01/03. Was dislodged 01/09. Placement of right #10 [place]ones[place] pigtail catheter 01/06. Pulmonology following for chest tube management. Right pleural fluid Cytology negative for malignancy 01/06, Pleural fluid cytology negative 12/30 Pericardial effusion, tamponade status post pericardiocentesis 01/01/17 Atrial fibrillation with RVR currently normal sinus rhythm NSTEMI Dynamic LVOT obstruction Coronary artery disease status post bare metal stent to left circumflex Krause 12/01 Emergency Pericardiocentesis drains -01/01. Cc. Cultures no growth. Removed drain 01/06, Followup limited Echo 01/07EF 60-65%. Trivial small pericardial effusion present Cardiac catheterization 12/01 revealed EF around 60%. Left main normal. RCA normal. LAD 70% ostial. Bare stent left circumflex 70%. Resume ASA 162 mg daily, d/c rectal ASA/ Continue Plavix 75 mg daily Continue amiodarone 200 mg by mouth every 12 hours. Continue Metoprolol 25 mill grams every 6 hours 2-D echo no veg, EF 50-55%. Mild MR, mild AR. Pseudo-outflow obstruction due to concentric hypertrophy and hyperdynamic ventricle Change Lasix to 20 g IV twice a day. KCL Effervescent 25 bid x2. Holding home medications of losartan 100 mg, amlodipine 10 mg daily, normotensive. Continue atorvastatin 40 by mouth daily for dyslipidemia. Pericardial fluid cytology 01/01 - negative for malignancy Invasive adenocarcinoma of the esophagus Liver cirrhosis - Tolerating mechanical soft, thin liquids. Speech therapy has signed off - Calorie counts being performed. -Patient's intake improving. Discontinue TPN - Has biopsy proven invasive adenocarcinoma of esophagus - Status post EUS/esophageal stent placement 12/25 Dr. Tejeda. - IV Protonix twice a day continue. - Carafate 1 g by mouth daily per her GI - Surgery removed port, now signed off. Acute kidney failure/ATN resolved - Monitor renal function closely. Saxena catheter. -Lasix /KCL as per above Follow BMP in a.m. Septic shock-resolved MSSA bacteremia [id number]-m-[id number] infection status post removal Pseudomonas pneumonia - Previously Rapid clinical improvement after Qdnrez-a-[id number] was removed. remains off all pressors - Catheter tip culture blood culture and wound culture also positive for MSSA - Continue Rifampin, for synergy per ID (on po now), and Ancef, Levaquin He will need 6 weeks IV Abx . Has LUE PICC - Infectious disease Dr. Nassar. 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 eBll is following - Status post surgical resection for L parotid SCC at [facility] 10/01 - Hematology plans to give weekly Erbitux and XRT outpatient. Transfuse as needed for hemoglobin less than 8 Hypokalemia Hypo-magnesium Diabetes Hypothyroidism Chronic prednisone use - Electrolyte replacement per protocol - On detemir 30 units every 12 hours, Continue TPN. No insulin in TPN. Change sliding scale to medium dose. ac/hs. Holding home medications of metformin 1000 mg twice a day and glipizide 20 mill grams by mouth twice a day - D/c IV synthroid and change to regular dose of 50 mcg po daily. . TSH 0.555 on admission Resume prednisone 5 mg daily 8/27. Off Solu-Medrol Sacral decubitus ulcer Wound care following. Opened to air PROPH: - No pharmacological prophylaxis secondary to hemoptysis. Will discuss with GI when we can resume prophylaxis. Patient has LE skin breakdown. Hold SCDs. - Pantoprazole 40 iv twice a day PT/OT following. Discharge Planning Palliative care is following. Makenna Schilling MD Jan 13, 2017 11:16
--- NOTE | 2017-01-13 11:31 | HHI.HCPN ---
Reason for visit a. To assist with evaluation and management of symptoms including: Pain, shortness of breath and debility. b. To assist medical decision maker(s) with: better understanding of current medical conditions; weighing benefits/burdens of medical treatment options; making medical treatment decisions. . Subjective/Interval History Mr. 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 Clinical course complicated by NSTEMI, patient underwent PCI with bare metal stents on 11/30/16. Clinical course further complicated by persistent fever, MSSA bacteremia, worsening sepsis, A. fib with RVR and persistent respiratory failure and intubation and mechanical ventilation. Patient transferred to medical floor on 01/11/17. He was seen in cardiac floor, sitting up in chair in moderate distress secondary to generalized pain and debility. Patient alert and oriented X self, place and situation. Verbal, communicating needs. Patient verbalize frustration regarding his clinical course and prolonged hospitalization. Endorsing generalized pain, exacerbated by physical exertion, alleviated with opiate medication. Patient endorsing exertional dyspnea, working with PT/OT. Reporting worsening anxiety and feeling of restlessness given clinical course. Ongoing calorie count, patient reports fair appetite. Patient endorsing. As of sadness and overall frustration. Looking forward to discharge to long term facility for physical straightening. Right chest tube still in place. Patient afebrile, stable hemodynamically. O2 was titrated to 1 L and room air as tolerated. Persistent bilateral lower extremities edema, ultrasound 01/09/17 negative for DVT. Most recent chest x-ray 01/12/17 revealing stable right lung airspace consolidation and left basilar opacity. Laboratory workup today revealing WBC 6.8, Hgb stable and 9.0, platelet count 2:15. BUN/creatinine 17/0.55. Most recent albumin 1.6. . Family/friend interactions No family at bedside. . Advance Directives Living Will: Copy in medical record Health Care Surrogate: Copy in medical record Durable Power of Curing Finisher: Never completed Advance Directive Specifics Date completed: 12/25/16. . Health Care Surrogate(s): Patient designated his daughter Mena La AND girlfriend Luly Bautista as co- healthcare surrogate decision makers. . Documented care wishes: Living will with standard verbiage as it pertains to persistent vegetative state. Additional limitation to treatment is NO tracheostomy. . Significant change in goals: Goals of care remain unchanged. . Objective Vital Signs Date Time Temp Pulse Resp B/P (MAP) Pulse Ox O2 Delivery O2 Flow Rate FiO2 01/13/17 11:06 97 Room Air 01/13/17 11:05 98.1 94 18 103/41 (61) 97 01/13/17 10:00 90 01/13/17 09:23 99 Nasal Cannula 1.00 01/13/17 09:00 84 01/13/17 08:00 78 01/13/17 07:35 Nasal Cannula 2.00 01/13/17 07:21 81 18 108/48 (68) 100 01/13/17 07:00 83 01/13/17 06:00 87 01/13/17 05:00 87 01/13/17 04:49 97 Nasal Cannula 2.00 01/13/17 04:00 84 01/13/17 03:30 98.1 86 16 111/50 (70) 95 01/13/17 03:30 95 Nasal Cannula 2.00 01/13/17 03:00 82 01/13/17 02:00 81 01/13/17 01:00 84 01/13/17 00:00 86 01/12/17 23:00 97.6 86 18 106/50 (68) 99 01/12/17 23:00 86 01/12/17 23:00 99 Nasal Cannula 2.00 01/12/17 22:17 98 Nasal Cannula 2.00 01/12/17 22:00 82 01/12/17 21:00 84 01/12/17 20:00 98.2 87 18 114/56 (75) 98 01/12/17 20:00 84 01/12/17 20:00 98 Nasal Cannula 2.00 01/12/17 19:33 18 01/12/17 19:00 88 01/12/17 18:00 90 01/12/17 17:37 18 01/12/17 17:00 83 01/12/17 16:18 99 Nasal Cannula 2.00 01/12/17 16:00 82 01/12/17 15:13 98.2 81 18 111/50 (70) 100 01/12/17 15:00 82 01/12/17 15:00 Nasal Cannula 2.00 01/12/17 14:00 79 01/12/17 13:00 86 01/12/17 12:00 88 Intake & Output 01/13/17 01/13/17 07:00 19:00 Intake Total 480 ml Output Total 2170 ml Balance -1690 ml Intake Oral 480 ml Output Urine Total 1500 ml Chest Tube Drainage Total 670 ml # Voids 1 # Bowel Movements 0 Physical Exam CONSTITUTIONAL/GENERAL: This is an adequately nourished patient in moderate distress secondary to generalized pain. Sitting up in chair. Tired looking. TUBES/LINES/DRAINS: PICC line to PIYUSH, Saxena catheter. PIV's, right sided chest tube. SKIN: No jaundice, rashes, or lesions. Pale. Scattered ecchymosis to upper extremities. Skin temperature appropriate. Not diaphoretic. HEAD: Atraumatic. Normocephalic. EYES: Pupils equal and round and reactive. Nonicteric. ENT: Hearing appears normal. Nose without bleeding or purulent drainage. Moist oral mucosa. NECK: Trachea midline. Supple. CARDIOVASCULAR: Regular rate and rhythm, systolic murmur. Edema to bilateral upper and lower extremities. Left lower extremity > right lower extremity. RESPIRATORY/CHEST: Symmetric. Clear breath sounds bilaterally. On room air. GASTROINTESTINAL: Abdomen soft, round. bowel sounds present. GENITOURINARY: Without palpable bladder distension. Saxena catheter intact to bedside drainage. MUSCULOSKELETAL: Moving all extremities independently. NEUROLOGICAL: Alert and oriented x self, place and situation. Able to communicate needs. PSYCHIATRIC: Anxious, restless. . Diagnostic Tests Laboratory Laboratory Tests Test 01/11/17 06:30 01/12/17 05:53 01/13/17 05:47 White Blood Count 5.9 TH/MM3 (4.0-11.0) 6.8 TH/MM3 (4.0-11.0) Red Blood Count 3.14 MIL/MM3 (4.50-5.90) 3.09 MIL/MM3 (4.50-5.90) Hemoglobin 9.1 GM/DL (13.0-17.0) 9.0 GM/DL (13.0-17.0) Hematocrit 27.6 % (39.0-51.0) 27.0 % (39.0-51.0) Mean Corpuscular Volume 88.1 FL (80.0-100.0) 87.4 FL (80.0-100.0) Mean Corpuscular Hemoglobin 29.2 PG (27.0-34.0) 29.1 PG (27.0-34.0) Mean Corpuscular Hemoglobin Concent 33.1 % (32.0-36.0) 33.3 % (32.0-36.0) Red Cell Distribution Width 19.9 % (11.6-17.2) 19.9 % (11.6-17.2) Platelet Count 187 TH/MM3 (150-450) 215 TH/MM3 (150-450) Mean Platelet Volume 9.0 FL (7.0-11.0) 9.1 FL (7.0-11.0) Neutrophils (%) (Auto) 70.5 % (16.0-70.0) Lymphocytes (%) (Auto) 16.9 % (9.0-44.0) Monocytes (%) (Auto) 8.7 % (0.0-8.0) Eosinophils (%) (Auto) 3.2 % (0.0-4.0) Basophils (%) (Auto) 0.7 % (0.0-2.0) Neutrophils # (Auto) 4.2 TH/MM3 (1.8-7.7) Lymphocytes # (Auto) 1.0 TH/MM3 (1.0-4.8) Monocytes # (Auto) 0.5 TH/MM3 (0-0.9) Eosinophils # (Auto) 0.2 TH/MM3 (0-0.4) Basophils # (Auto) 0.0 TH/MM3 (0-0.2) CBC Comment DIFF FINAL Differential Comment Blood Urea Nitrogen 16 MG/DL (7-18) 16 MG/DL (7-18) 17 MG/DL (7-18) Creatinine 0.46 MG/DL (0.60-1.30) 0.54 MG/DL (0.60-1.30) 0.55 MG/DL (0.60-1.30) Random Glucose 141 MG/DL (74-106) 93 MG/DL (74-106) 95 MG/DL (74-106) Total Protein 5.5 GM/DL (6.4-8.2) Albumin 1.6 GM/DL (3.4-5.0) Calcium Level 7.8 MG/DL (8.5-10.1) 7.7 MG/DL (8.5-10.1) 7.6 MG/DL (8.5-10.1) Phosphorus Level 3.0 MG/DL (2.5-4.9) Magnesium Level 1.8 MG/DL (1.5-2.5) Alkaline Phosphatase 86 U/L (45-117) Aspartate Amino Transf (AST/SGOT) 19 U/L (15-37) Alanine Aminotransferase (ALT/SGPT) 13 U/L (12-78) Total Bilirubin 0.4 MG/DL (0.2-1.0) Sodium Level 137 MEQ/L (136-145) 135 MEQ/L (136-145) 135 MEQ/L (136-145) Potassium Level 4.1 MEQ/L (3.5-5.1) 3.9 MEQ/L (3.5-5.1) 4.4 MEQ/L (3.5-5.1) Chloride Level 99 MEQ/L (98-107) 96 MEQ/L (98-107) 95 MEQ/L (98-107) Carbon Dioxide Level 31.7 MEQ/L (21.0-32.0) 31.2 MEQ/L (21.0-32.0) 29.3 MEQ/L (21.0-32.0) Anion Gap 6 MEQ/L (5-15) 8 MEQ/L (5-15) 11 MEQ/L (5-15) Estimat Glomerular Filtration Rate 187 ML/MIN (>89) 156 ML/MIN (>89) 152 ML/MIN (>89) Result Diagram: 01/13/17 0547 01/13/17 0547 Imaging Last 48 hours Impressions Chest X-Ray 01/12/17 0600 Signed Impressions: Service Date/Time: Thursday, January 12, 2017 04:05 - CONCLUSION: 1. Stable right lung airspace consolidation and left basilar opacity. 2. Right chest tube remains present and no pneumothorax is visualized. Washington Marroquin MD Procedures 11/30/16 - he underwent left and right heart catheterization with the following findings: RCA-dominant, 10% lesion mid. PDA-patent with TALI III flow. LM-no significant obstructive lesions. LAD-transapical, no significant obstructive lesions. Diagonal-70% lesion ostial, small vessel. Left circumflex-proximal clot thrombus, TALI II flow with 2 OM branches, both patent. Procedure-PCI/BMS to proximal left circumflex in setting of NSTEMI. No left ventriculogram done due to concern for renal function. EF by echocardiogram 12/01/16 was 50-55%, mild concentric left ventricular hypertrophy, normal right ventricular size and function, no significant valvular disease, pulmonary hypertension or effusion noted. This was reexamined 87 due to concern for possible pericardial infusion. Findings included dynamic "pseudo-" outflow tract obstructive physiology due to concentric hypertrophy and hyperdynamic systolic function with mild mitral regurgitation, mild aortic valve regurgitation and small to moderate pericardial effusion, not hemodynamically significant. 12/02/16-left axillary arterial line placement. 12/02/16-intubation. 12/02/16 left subclavian central line placement. 12/02/1602-[id number]-Port removal secondary to sepsis. 12/25/16-EUS followed by an EGD with esophageal stent placement 12/25/16-reintubation 12/25/16-arterial line placement 12/26/16 -extubation 01/01/17 -pericardiocentesis 01/01/17 -left-sided chest tube placement 01/01/17 -reintubation 01/06/17 -medical extubation 01/06/17 -removal of pericardial drainage 01/06/17 -right sided chest tube placement 01/09/17 -removal of left chest tube . . Assessment and Plan Disease Oriented Problem List: (1) Respiratory failure (2) Edema (3) Esophageal carcinoma (4) SCC (squamous cell carcinoma) (5) NSTEMI (non-ST elevated myocardial infarction) (6) Atrial fibrillation with RVR (7) Physical deconditioning Symptom Scale: (1) Shortness of breath 0-10 Scale: Unable to quantify Comment: Persistent respiratory failure, medically extubated 01/06/17. Currently tolerating room air. (2) Pain 0-10 Scale: Unable to quantify Comment: Oxycodone PRN available. (3) Debility 0-10 Scale: Unable to quantify Comment: Progressive, secondary to acute illness and prolonged hospitalization. (4) Edema 0-10 Scale: Unable to quantify Pertinent Non-Medical Issues Psychosocial:This is a 61-year-old male that was born in [place], [place] and moved to [place] when he was 15. He never attended high school after he moved to [place] nor obtained his GED. 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 He was never in the . Spiritual: No spiritual affiliation. Legal: Has designated his daughter Ben La and his girlfriend Luly Bautista as joint healthcare surrogates. Ethical issues impacting care: None noted. . Important Contacts Daughter-Ben La Significant other-Luly Bautista , Mother-Orly Sky (Ama[place]), [place], [place] . Prognosis Mr. 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 Clinical course complicated by NSTEMI, patient underwent PCI with bare metal stents on 11/30/16. Clinical course further complicated by persistent fever, MSSA bacteremia, worsening sepsis, A. fib with RVR and persistent respiratory failure. Patient underwent EGD with esophageal stent placement on 12/25/16, complicated by significant bleeding from distal esophagus, in addition to persistent respiratory failure. Patient at a very high risk for further complications, continue decline and . . Code Status: Full Code Plan * CODE STATUS: Full code. CODE STATUS will readdress 01/09/17, Patient electing full code. * HEALTHCARE DECISION-MAKING: Patient participating in medical decision-making. Fair insight into his clinical issues and high risk for further decline. Patient has designated his daughter Mena La AND girlfriend Luly Plunkett as co-healthcare surrogate decision makers. * GOALS OF CARE: 01/13/17. Patient electing to continue aggressive management short of NO tracheostomy. Looking forward to discharge to long term facility for physical straightening. Patient to follow-up with outpatient oncology for further management and treatment recommendations. * SYMPTOMS: * = Shortness of breath, secondary to persistent respiratory failure. Medically extubated 01/06/17, currently tolerating room air * = Pain, multifactorial. Likely secondary to multiple procedures, prolonged hospitalization, bedrest. Pain exacerbated by physical exertion/PT. This appears acute in nature. Oxycodone 5 mg Q4h PRN available as needed. Received 4 doses yesterday with moderate effect. Percocet 10/325 Q4h PRN available. Received 4 doses yesterday and 2 doses today with moderate effect. Palliative care recommends discontinuing oxycodone 5 mg as Percocet 10/325 appears to be most effective. * = Anxiety, exacerbated by pain and feelings of frustration. Lorazepam 1 mg IV Q4hr available as needed. Last PRN lorazepam dose received on 12/31/16. Palliative care recommends lorazepam 0.5 mg by mouth q6h PRN for anxiety. * = Depression, multifactorial -likely secondary to malignancy, multiple chronic ongoing comorbidities and prolonged hospitalization. Patient voicing feeling depressed, worsening anxiety and frustration. Palliative care recommends starting patient on SSRI given concomitant anxiety -Sertraline 25mg PO daily. * = Debility, secondary to acute illness and prolonged hospitalization. Ongoing discharge planning, likely to DC to SNF for rehabilitation. * Palliative care contact information has been provided to patient and family. * Palliative care will continue to follow-up for further clarifications of goals of care as patient's clinical course continues to evolve. . Time Spent Total Floor Time (mins): 38 (Total time to include review medical records, physical exam, symptom management and goals of care conversation with patient, case discussion with PT.) >50% Counseling/Coord of Care: Yes Attestation To help prompt me to consider important information that might be impacting today's encounter and assessment, information from prior notes written by myself or my colleagues may have been "brought forward" into today's note. My signature on this note, however, is an attestation that I personally performed the exam, history, and/or decision-making noted today, and, unless otherwise indicated, the interactions with patient, family, and staff as well as the review of records all occurred today. I also attest that the listed assessment and stated plan reflect my best clinical judgment today based on the combination of historical information, prior notes, and today's exam/ interactions. When time spent is documented, it refers only to time spent today by the signer, or if indicated, combined time spent today by collaborating physician/nurse practitioner. Ida Alston Jan 13, 2017 11:31
--- NOTE | 2017-01-13 12:26 | PD.ONC.PN ---
Subjective Subjective Remarks "I can't eat this hospital food" Afebrile Breathing OK at rest Objective Data Date Time Temp Pulse Resp B/P (MAP) Pulse Ox O2 Delivery O2 Flow Rate FiO2 01/13/17 11:06 97 Room Air 01/13/17 11:05 98.1 94 18 103/41 (61) 97 01/13/17 11:00 92 01/13/17 10:00 90 01/13/17 09:23 99 Nasal Cannula 1.00 01/13/17 09:00 84 01/13/17 08:00 78 01/13/17 07:35 Nasal Cannula 2.00 01/13/17 07:21 81 18 108/48 (68) 100 01/13/17 07:00 83 01/13/17 06:00 87 01/13/17 05:00 87 01/13/17 04:49 97 Nasal Cannula 2.00 01/13/17 04:00 84 01/13/17 03:30 98.1 86 16 111/50 (70) 95 01/13/17 03:30 95 Nasal Cannula 2.00 01/13/17 03:00 82 01/13/17 02:00 81 01/13/17 01:00 84 01/13/17 00:00 86 01/12/17 23:00 97.6 86 18 106/50 (68) 99 01/12/17 23:00 86 01/12/17 23:00 99 Nasal Cannula 2.00 01/12/17 22:17 98 Nasal Cannula 2.00 01/12/17 22:00 82 01/12/17 21:00 84 01/12/17 20:00 98.2 87 18 114/56 (75) 98 01/12/17 20:00 84 01/12/17 20:00 98 Nasal Cannula 2.00 01/12/17 19:33 18 01/12/17 19:00 88 01/12/17 18:00 90 01/12/17 17:37 18 01/12/17 17:00 83 01/12/17 16:18 99 Nasal Cannula 2.00 01/12/17 16:00 82 01/12/17 15:13 98.2 81 18 111/50 (70) 100 01/12/17 15:00 82 01/12/17 15:00 Nasal Cannula 2.00 01/12/17 14:00 79 01/12/17 13:00 86 01/13/17 01/13/17 01/13/17 06:59 14:59 22:59 Intake Total 480 ml Output Total 2170 ml Balance -1690 ml Result Diagram: 01/13/17 0547 01/13/17 0547 Laboratory Results Laboratory Tests Test 01/13/17 05:47 White Blood Count 6.8 TH/MM3 Red Blood Count 3.09 MIL/MM3 Hemoglobin 9.0 GM/DL Hematocrit 27.0 % Mean Corpuscular Volume 87.4 FL Mean Corpuscular Hemoglobin 29.1 PG Mean Corpuscular Hemoglobin Concent 33.3 % Red Cell Distribution Width 19.9 % Platelet Count 215 TH/MM3 Mean Platelet Volume 9.1 FL Blood Urea Nitrogen 17 MG/DL Creatinine 0.55 MG/DL Random Glucose 95 MG/DL Calcium Level 7.6 MG/DL Sodium Level 135 MEQ/L Potassium Level 4.4 MEQ/L Chloride Level 95 MEQ/L Carbon Dioxide Level 29.3 MEQ/L Anion Gap 11 MEQ/L Estimat Glomerular Filtration Rate 152 ML/MIN Administered Medications Medications (Trade) Dose Ordered Sig/Geovanny Route PRN Reason Start Time Stop Time Status Last Admin Dose Admin Sodium Chloride (NS Flush) 2 ml UNSCH PRN IV FLUSH FLUSH AFTER USING IV ACCESS 11/30/16 02:45 12/24/16 09:59 Sodium Chloride (NS Flush) 2 ml BID IV FLUSH 11/30/16 09:00 01/13/17 08:36 Senna/Docusate Sodium (Rere-Colace) 1 tab BID PO 11/30/16 09:00 01/13/17 08:21 Acetaminophen (Tylenol) 325 mg Q4H PRN PO PAIN SCALE 1 TO 2 11/30/16 13:45 12/13/16 17:13 Ondansetron HCl (Zofran Inj) 4 mg Q4H PRN IV NAUSEA 11/30/16 13:45 12/24/16 22:41 Sodium Chloride (NS Flush) 5 ml Q21D IV FLUSH 11/30/16 18:00 12/21/16 17:19 Heparin Sodium (Porcine) (Heparin Central Flush) 500 units Q21D IV FLUSH 11/30/16 18:00 11/30/16 18:04 Heparin Sodium (Porcine) (Heparin Central Flush) 250 units UNSCH PRN IV FLUSH FLUSH AFTER USING IV ACCESS 11/30/16 18:00 01/12/17 05:26 Acetaminophen (Tylenol 650 Mg/ 20 ml Liq) 650 mg Q6H PRN PO FEVER 12/01/16 17:30 12/02/16 01:07 Polyethylene Glycol (Miralax) 17 gm DAILY PO 12/04/16 09:00 01/10/17 08:45 Multivitamins (Theragran) 1 tab DAILY PO 12/05/16 09:00 01/13/17 08:20 Rifampin (Rifampin) 300 mg Q12HR PO 12/06/16 09:15 01/15/17 23:00 Future hold 01/13/17 08:22 Lorazepam (Ativan Inj) 1 mg Q4H PRN IV PUSH ANXIETY AND/OR AGITATION 12/09/16 15:15 12/31/16 14:16 Atorvastatin Calcium (Lipitor) 40 mg HS PO 12/12/16 21:00 Future hold 01/12/17 21:19 Sodium Chloride (NS Flush) See Protocol DAILY IV FLUSH 12/13/16 09:00 01/13/17 08:36 Heparin Sodium (Porcine) (Heparin Central Flush) See Protocol DAILY IV FLUSH 12/13/16 09:00 01/13/17 08:20 Sodium Chloride (NS Flush) UNSCH PRN IV FLUSH SEE PROTOCOL TABLE 12/12/16 17:00 12/19/16 01:59 Lorazepam (Ativan) 0.5 mg DAILY PRN PO ANXIETY 12/18/16 15:45 Future Hold 12/19/16 08:29 Diltiazem HCl (Cardizem) 90 mg Q6H PO 12/18/16 23:00 Future Hold 12/25/16 12:14 Digoxin (Lanoxin) 0.25 mg DAILY PO 12/22/16 09:00 Future Hold 12/25/16 08:06 Sucralfate (Carafate Liq) 1 gm ACHS PO 12/22/16 11:00 01/13/17 11:15 Metoprolol Tartrate (Lopressor Inj) 5 mg Q1HR PRN IV PUSH RAPID HEART RATE 12/22/16 09:45 12/30/16 10:37 Pantoprazole Sodium (Protonix Inj) 40 mg Q12H IV PUSH 12/22/16 10:00 01/13/17 11:16 Metoprolol Tartrate (Lopressor) 25 mg Q6HR PO 12/22/16 13:00 01/13/17 06:21 Magnesium Oxide (Mag-Ox) 800 mg UNSCH PRN PO For Magnesium 1.2 - 1.6 mg/dL 12/25/16 21:00 12/27/16 06:46 Potassium Chloride 100 ml @ 50 mls/hr Q2H PRN IV For Potassium 3.3 - 3.5 mEq/L 12/25/16 21:00 01/08/17 04:35 Potassium Chloride 100 ml @ 25 mls/hr UNSCH PRN IV For Potassium 3.3 - 3.5 mEq/L 12/25/16 21:00 01/04/17 06:32 Sodium Phosphate 30 mmol/Sodium Chloride 250 ml @ 42 mls/hr UNSCH PRN IV For Phosphorus < 2.5 mg/dL 12/25/16 21:00 12/30/16 06:49 Albuterol/ Ipratropium (Duoneb Neb) 1 ampule Q2HR NEB PRN INH WHEEZING 12/25/16 21:00 01/02/17 19:29 Clopidogrel Bisulfate (Plavix) 75 mg DAILY PO 12/29/16 09:00 01/13/17 08:35 Aspirin (Ecotrin Ec) 162 mg DAILY PO 12/29/16 09:00 Future hold 01/13/17 08:22 Prednisone (Deltasone) 5 mg DAILY PO 12/29/16 09:00 Future hold 01/13/17 08:21 Chlorhexidine Gluconate (Peridex 0.12% Liq) 15 ml BID@08,20 MT 01/01/17 20:00 01/08/17 19:50 Artificial Tears (Tears Naturale Opth Soln) 1 drop Q8HR EACH EYE 01/04/17 14:00 01/13/17 06:24 Insulin Detemir (Levemir Inj) 30 units Q12HR SQ 01/06/17 21:00 01/13/17 08:23 Amiodarone HCl (Cordarone) 200 mg Q12HR PO 01/07/17 10:00 01/13/17 08:21 Cefazolin Sodium/ Dextrose 50 ml @ 100 mls/hr Q8H IV 01/07/17 17:00 01/15/17 16:59 01/13/17 08:19 Levofloxacin (Levaquin) 750 mg DAILY@1800 PO 01/07/17 18:00 01/14/17 17:59 01/12/17 18:20 Albuterol/ Ipratropium (Duoneb Neb) 1 ampule Q6HR NEB NEB 01/10/17 16:00 01/13/17 09:20 Levothyroxine Sodium (Synthroid) 50 mcg DAILY@0600 PO 01/11/17 06:00 01/13/17 06:21 Oxycodone/ Acetaminophen (Percocet 10-325 Mg) 1 tab Q4H PRN PO PAIN 1-10 01/10/17 14:15 01/13/17 08:21 Oxycodone HCl (Roxicodone) 5 mg Q4H PRN PO BREAKTHROUGH PAIN 01/10/17 14:15 01/12/17 23:06 Temazepam (Restoril) 15 mg HS PRN PO SLEEP 01/11/17 11:45 01/11/17 23:40 Insulin Aspart (NovoLOG SUPPLEMENTAL SCALE) 1 ACHS SLIDING SCALE SQ 01/11/17 16:00 01/12/17 21:22 Furosemide (Lasix Inj) 20 mg Q12HR IV PUSH 01/12/17 21:00 01/13/17 08:20 Objective Remarks GENERAL: Older male resting on his right side in bed in no acute distress SKIN: Warm and dry. [place] complexion HEAD: Normocephalic. EYES: No injection or drainage. NECK: Supple, trachea midline. CARDIOVASCULAR: Regular rate and rhythm without murmurs. RESPIRATORY: Chest tube to right chest; scattered rhonchi GASTROINTESTINAL: Abdomen soft, non-tender, nondistended. EXTREMITIES: Generalized edema MUSCULOSKELETAL: Adequate muscle tone. NEUROLOGICAL: No obvious focal deficit. Awake, alert, and oriented x3. Assessment/Plan Problem List: (1) Esophageal adenocarcinoma ICD Codes: C15.9 - Malignant neoplasm of esophagus, unspecified Status: Acute Plan: --EUS with esophageal stent placement on 12/25 --++hemoptysis --we plan to give weekly Erbitux and XRT outpatient. --patient had OP EGD with biopsy, pathology showed adenocarcinoma. --EGD/Colonoscopy, 11/20/16--showed long stricture in the mid esophagus and distal esophagus, multiple biopsies were performed Pathology revealed invasive adenocarcinoma- distal esophagus --XRT simulation done 12/19. (2) SCC (squamous cell carcinoma) ICD Codes: C44.92 - Squamous cell carcinoma of skin, unspecified Status: Acute Plan: --has a head and neck, lung malignancy which was locally advanced. --received definitive treatment with surgery. Post surgery he had positive margins and some poor risk features and he was about to get concurrent chemotherapy and radiation and adjuvantly to achieve local control of the disease --PET scan to stage his disease prior to treatment showed an esophageal mass (3) Normocytic anemia ICD Codes: D64.9 - Anemia, unspecified Status: Acute Plan: --hgb stable --transfuse packed red blood cells if his hemoglobin drops below 8.5 --s/p iron infusion (4) Afib ICD Codes: I48.91 - Unspecified atrial fibrillation Status: Acute Plan: --cardiology following. --s/p chest tube placement --on Plavix --on ASA (5) Sepsis ICD Codes: A41.9 - Sepsis, unspecified organism Status: Resolved Plan: --BC 8.18: pending BC, 7.24 no growth BC, 12/07 no growth --BC, 12/05 +, S. Aureus --had removal of port, + S. aureus --on Cefepime (6) NSTEMI (non-ST elevated myocardial infarction) ICD Codes: I21.4 - Non-ST elevation (NSTEMI) myocardial infarction Status: Acute Plan: --had elevated troponin and ST-segment changes consistent with acute CA. 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 Also with a new diagnosis of early stage gastric cancer Plan 1. The patient was encouraged to try new foods in order to increase his by mouth intake. He will continue to have slow improvement if he does not increase his nutrition. 2. Since he is off the TPN is noted that his blood sugars have normalized. 3. Pulmonology following for chest tube; still with over 1000 ml output yesterday 4. Supportive care Attending Statement The exam, history, and the medical decision-making described in the above note were completed with the assistance of the mid-level provider. I reviewed and agree with the findings presented. I attest that I had a [id number] encounter with the patient on the same day, and personally performed and documented my assessment and findings in the medical record Problem Qualifiers (1) Afib: (2) Sepsis: Shey Flores Jan 13, 2017 12:26 Brant Bell MD Jan 13, 2017 23:40
[2017-01-13] MEDS: LEVOFLOXACIN 750 MG TAB PO SCH (17:04)
--- NOTE | 2017-01-13 18:54 | HHI.PR ---
Subjective Subjective Notes Patient attempting to eat using supplements Objective Vitals/I&O Vital Signs Date Time Temp Pulse Resp B/P (MAP) Pulse Ox O2 Delivery O2 Flow Rate FiO2 01/13/17 17:00 97.6 86 20 103/50 (67) 97 01/13/17 15:08 Room Air 01/13/17 09:23 1.00 Labs Laboratory Tests Test 01/13/17 05:47 White Blood Count 6.8 Red Blood Count 3.09 Hemoglobin 9.0 Hematocrit 27.0 Mean Corpuscular Volume 87.4 Mean Corpuscular Hemoglobin 29.1 Mean Corpuscular Hemoglobin Concent 33.3 Red Cell Distribution Width 19.9 Platelet Count 215 Mean Platelet Volume 9.1 Blood Urea Nitrogen 17 Creatinine 0.55 Random Glucose 95 Calcium Level 7.6 Sodium Level 135 Potassium Level 4.4 Chloride Level 95 Carbon Dioxide Level 29.3 Anion Gap 11 Estimat Glomerular Filtration Rate 152 Date/Time Source Procedure Growth Status 01/02/17 06:00 Blood Peripheral Aerobic Blood Culture - Final NO GROWTH IN 5 DAYS Complete 01/02/17 06:00 Blood Peripheral Anaerobic Blood Culture - Final NO GROWTH IN 5 DAYS Complete 01/06/17 12:30 Fluid Pleural Fluid Fungal Smear - Final NO FUNGAL ELEMENTS SEEN. Resulted 01/06/17 12:30 Fluid Pleural Fluid Fungal Culture - Preliminary NO GROWTH IN 1 WEEK Resulted 12/24/16 12:42 Stool Stool Stool Occult Blood (DAINA) - Final HEMOCCULT NEGATIVE Complete 01/02/17 20:13 Sputum Endotracheal Gram Stain - Final Complete 01/02/17 20:13 Sputum Culture - Final Pseudomonas Aeruginosa Complete 12/01/16 17:00 Urine Catheterized Urine Urine Culture - Final Staphylococcus Aureus Complete 12/02/16 20:00 Catheter Tip Other Wound Culture - Final Staphylococcus Aureus Complete A/P Assessment and Plan 61 yo male with esophageal cancer; attempting to eat Will standby; gastric feeding tube to be placed laparoscopically if not able to take adequate calories PO Bebeto Rihc MD Jan 13, 2017 18:54
--- NOTE | 2017-01-13 20:09 | HHI.PR ---
Subjective Remarks 61 YOWM with COPD,DM,AF Had Pericardial effusion and Pericardiocentesis Has Right chest tube Mild SOB No Fever Up in chair. Objective Vital Signs Vital Signs Date Time Temp Pulse Resp B/P (MAP) Pulse Ox O2 Delivery O2 Flow Rate FiO2 01/13/17 17:00 97.6 86 20 103/50 (67) 97 01/13/17 17:00 Room Air 01/13/17 16:00 82 01/13/17 15:10 83 01/13/17 15:08 97 Room Air 01/13/17 15:07 98.2 90 18 110/53 (72) 96 01/13/17 14:00 90 01/13/17 13:00 90 01/13/17 12:00 90 01/13/17 11:06 97 Room Air 01/13/17 11:05 98.1 94 18 103/41 (61) 97 01/13/17 11:00 92 01/13/17 10:00 90 01/13/17 09:23 99 Nasal Cannula 1.00 01/13/17 09:00 84 01/13/17 08:00 78 01/13/17 07:35 Nasal Cannula 2.00 01/13/17 07:21 81 18 108/48 (68) 100 01/13/17 07:00 83 01/13/17 06:00 87 01/13/17 05:00 87 01/13/17 04:49 97 Nasal Cannula 2.00 01/13/17 04:00 84 01/13/17 03:30 98.1 86 16 111/50 (70) 95 01/13/17 03:30 95 Nasal Cannula 2.00 01/13/17 03:00 82 01/13/17 02:00 81 01/13/17 01:00 84 01/13/17 00:00 86 01/12/17 23:00 97.6 86 18 106/50 (68) 99 01/12/17 23:00 86 01/12/17 23:00 99 Nasal Cannula 2.00 01/12/17 22:17 98 Nasal Cannula 2.00 01/12/17 22:00 82 01/12/17 21:00 84 I/O 01/12/17 01/12/17 01/12/17 01/13/17 01/13/17 01/13/17 07:00 15:00 23:00 07:00 15:00 23:00 Intake Total 480 ml 50 ml 1120 ml 480 ml 50 ml 1080 ml Output Total 2365 ml 1740 ml 2170 ml 750 ml Balance -1885 ml 50 ml -620 ml -1690 ml 50 ml 330 ml Intake Oral 480 ml 620 ml 480 ml 1080 ml IV Total 50 ml 500 ml 50 ml Output Urine Total 1825 ml 1350 ml 1500 ml 350 ml Chest Tube Drainage Total 540 ml 390 ml 670 ml 400 ml # Voids 1 # Bowel Movements 0 0 0 Result Diagram: 01/13/1754601/13/17546 Objective Remarks GENERAL: WBWN WM,NAD SKIN: Warm and dry. HEAD: Normocephalic. EYES: No scleral icterus. No injection or drainage. NECK: Supple, trachea midline. No JVD or lymphadenopathy. CARDIOVASCULAR: Regular rate and rhythm without murmurs, gallops, or rubs. RESPIRATORY: Breath sounds equal bilaterally. No accessory muscle use. Right chest tube draining GASTROINTESTINAL: Abdomen soft, non-tender, nondistended. MUSCULOSKELETAL: No cyanosis, or edema. BACK: Nontender without obvious deformity. No CVA tenderness. A/P Assessment and Plan Right Pl effusion, s/p Chest tube placement S/P Pericardiocentesis AF CAD HTN PLAN: Cont Chest tube suction Supplement 02 Aerosol Chace Goff MD Jan 13, 2017 20:09
[2017-01-13] MEDS: ATORVASTATIN 40 MG TAB PO SCH (21:03)
[2017-01-14] VITALS (9 sets, daily range): BP systolic 92–125; BP diastolic 50–66; PULSE 81–98; RESP 17–20; TEMP 97.4–98; O2SAT 95–99
[2017-01-14] MEDS: ceFAZolin 2 GM PREMIX 50 ML IV SCH ×3 (00:28→17:05)
[2017-01-14] MEDS: oxyCODONE/ACETAMINOPHEN 10 MG/325 MG TAB PO PRN ×5 (00:28→21:49)
[2017-01-14] MEDS: METOPROLOL TARTRATE 25 MG TAB PO SCH ×4 (00:28→17:05)
[2017-01-14] MEDS: RESP: ALBUTEROL 2.5 MG/IPRATROPIUM 0.5 MG NEB (SCH) NEB ×2 (03:30→10:09)
[2017-01-14] MEDS: LEVOTHYROXINE SODIUM 50 MCG TAB PO SCH (05:24)
[2017-01-14] MEDS: SUCRALFATE 1 GM/10 ML CUP PO SCH ×4 (05:24→21:48)
[2017-01-14] MEDS: ARTIFICIAL TEARS OPTH SOLN 15 ML BTL EACH EYE SCH ×3 (05:26→21:51)
[2017-01-14] MEDS: INSULIN ASPART SUPPLEMENTAL SCALE SQ SCH ×4 (06:51→21:00)
[2017-01-14 06:56] LABS: BICARBONATE 32.1 MEQ/L (21.0-32.0); POTASSIUM 3.9 MEQ/L (3.5-5.1)
[2017-01-14 06:59] LABS: HEMATOCRIT 26.2 % (39.0-51.0); MEAN CELL VOLUME 87.2 FL (80.0-100.0); MEAN CORPUSCULAR HEMOGLOBIN 28.9 PG (27.0-34.0); MEAN CORPUSCULAR HGB CONC 33.2 % (32.0-36.0); PLATELET COUNT 205 TH/MM3 (150-450); RED BLOOD COUNT 3.01 MIL/MM3 (4.50-5.90); RED CELL DISTRIBUTION WIDTH 19.4 % (11.6-17.2); REVIEW FLAG FINAL; WHITE BLOOD COUNT 6.3 TH/MM3 (4.0-11.0)
[2017-01-14] MEDS: CHLORHEXIDINE 0.12% (ORAL KIT) 15 ML CUP MT SCH ×2 (08:00→20:00)
[2017-01-14] MEDS: SODIUM CHLORIDE 0.9% FLUSH 10 ML FLUSH IV FLUSH SCH ×3 (08:21→21:49)
[2017-01-14] MEDS: FUROSEMIDE 20 MG/2 ML VIAL IV PUSH SCH ×2 (08:22→21:00)
[2017-01-14] MEDS: ASPIRIN EC 81 MG TABEC PO SCH (08:22)
[2017-01-14] MEDS: DOCUSATE SODIUM 50 MG/SENNA 8.6 MG TAB PO SCH ×2 (08:22→21:47)
[2017-01-14] MEDS: RIFAMPIN 150 MG CAP PO SCH ×2 (08:22→21:47)
[2017-01-14] MEDS: MULTIVITAMIN TAB PO SCH (08:22)
[2017-01-14] MEDS: AMIODARONE 200 MG TAB PO SCH ×2 (08:22→21:48)
[2017-01-14] MEDS: predniSONE 5 MG TAB PO SCH (08:23)
[2017-01-14] MEDS: POLYETHYLENE GLYCOL 17 GM PKG PO SCH (08:23)
[2017-01-14] MEDS: INSULIN DETEMIR 100 UNITS/ML VIAL SQ SCH ×2 (08:40→21:00)
[2017-01-14] MEDS: CLOPIDOGREL 75 MG TAB PO SCH ×2 (08:41→10:04)
[2017-01-14] MEDS: PANTOPRAZOLE SODIUM 40 MG VIAL IV PUSH SCH ×2 (10:05→21:48)
--- NOTE | 2017-01-14 12:29 | HHI.PR ---
Subjective Remarks Follow-up for chest tube Patient stated he feels a lot better today. He stated that he has been walking on his own. He stated that physical therapist has not helped him and that he has to do PT on his own. Patient denies any SOB or cough. He is very anxious to go home. Objective Vitals Vital Signs Date Time Temp Pulse Resp B/P (MAP) Pulse Ox O2 Delivery O2 Flow Rate FiO2 01/14/17 10:57 Room Air 01/14/17 08:18 97.4 81 17 111/56 (74) 99 01/14/17 04:00 97.6 86 18 109/53 (71) 97 01/14/17 04:00 Room Air 01/14/17 03:34 98 01/14/17 00:00 Room Air 01/14/17 00:00 97.9 94 20 92/50 (64) 95 01/13/17 20:39 93 01/13/17 20:00 97.8 90 20 103/51 (68) 97 01/13/17 20:00 Room Air 01/13/17 17:00 97.6 86 20 103/50 (67) 97 01/13/17 17:00 Room Air 01/13/17 16:00 82 01/13/17 15:10 83 01/13/17 15:08 97 Room Air 01/13/17 15:07 98.2 90 18 110/53 (72) 96 01/13/17 14:00 90 01/13/17 13:00 90 I/O 01/13/17 01/13/17 01/13/17 01/14/17 01/14/17 01/14/17 07:00 15:00 23:00 07:00 15:00 23:00 Intake Total 480 ml 50 ml 1080 ml 770 ml Output Total 2170 ml 750 ml 1800 ml Balance -1690 ml 50 ml 330 ml -1030 ml Intake Oral 480 ml 1080 ml 720 ml IV Total 50 ml 50 ml Output Urine Total 1500 ml 350 ml 1600 ml Chest Tube Drainage Total 670 ml 400 ml 200 ml # Voids 1 2 # Bowel Movements 0 1 Result Diagram: 01/14/1715 01/14/17 0615 Objective Remarks GENERAL: Patient sitting up in bed in no acute distress. CARDIOVASCULAR: irregular heart rhythm. 3/6 murmur. RESPIRATORY: Clear to auscultation. Breath sounds equal bilaterally. No wheezes right chest tube in place. GASTROINTESTINAL: Abdomen soft, non-tender, nondistended. MUSCULOSKELETAL: sitting up on side of bed, able to move his upper extremities. +1-2 lower extremity edema. SKIN: gluteal skin breakage Procedures Right axillary art line 12/02/16 Left subclavian central venous line 12/02/16 (Dr. Delarosa) intubation 12/02/16 and 01/01/17 PCI with bare metal stent to LCx by Dr. Krause on 11/30/16 port removal 12/02/16 Dr. Rich. EUS with esophageal stent placement, food bolus removal 12/25/16 Dr. Tejeda Right thoracentesis 12/30/16 (Dr. Harding) Pericardiocentesis and pericardial drain 01/01/17 (Dr. Bueno) Placement of Left #10 Belgian pigtail catheter 01/03. Was dislodged 01/09. Placement of right #10 Belgian pigtail catheter 01/06 Medications and IVs Current Medications Sodium Chloride 1,000 ml @ 999 mls/hr BOLUS ONCE IV Last administered on 11/30 01:52; Start 11/30/16 at 00:00; Stop 11/30/16 at 01:00; Status DC Morphine Sulfate (Morphine Inj) 4 mg ONCE ONCE IV PUSH Last administered on 01:53; Start 11/30/16 at 01:00; Stop 11/30/16 at 01:01; Status DC Potassium Bicarb/ Potassium Chloride (K-Lyte Cl Eff) 75 meq ONCE ONCE PO Last administered on 11/30/16 01:53; Start 11/30/16 at 01:30; Stop 11/30/16 at 01:31; Status DC Iohexol (Omnipaque 350 Inj) 75 ml STK-MED ONCE IV ; Start 11/30/16 at 01:37; Stop 11/30/16 at 01:38; Status DC Calcium Gluconate (Calcium Gluconate Inj) 1 gm ONCE ONCE IV PUSH Last administered on 11/30/16 02:58; Start 11/30/16 at 02:45; Stop 11/30/16 at 02:46 ; Status DC Sodium Chloride 1,000 ml @ 100 mls/hr Q10H IV Last administered on 11/30/16 02:58; Start 11/30/16 at 02:33; Stop 11/30/16 at 13:54; Status DC Sodium Chloride (NS Flush) 2 ml UNSCH PRN IV FLUSH FLUSH AFTER USING IV ACCESS Last administered on 12/24/16 09:59; Start 11/30/16 at 02:45 Sodium Chloride (NS Flush) 2 ml BID IV FLUSH Last administered on 01/14/17 08: 21; Start 11/30/16 at 09:00 Ondansetron HCl (Zofran Inj) 4 mg Q6H PRN IVP NAUSEA OR VOMITING; Start at 02:45; Stop 11/30/16 at 13:51; Status DC Acetaminophen (Tylenol) 650 mg Q6H PRN PO FEVER/PAIN SCALE 1 TO 2; Start at 02:45; Stop 11/30/16 at 13:54; Status DC Hydromorphone HCl (Dilaudid Pf Inj) 1 mg Q3H PRN IV Pain 6-10 Last administered on 12/04/16 06:52; Start 11/30/16 at 02:45; Stop 12/04/16 at 09:25 ; Status DC Oxycodone HCl (Roxicodone) 5 mg Q4H PRN PO PAIN SCALE 3 TO 5 Last administered on 01/10/17 02:18; Start 11/30/16 at 02:45; Stop 01/10/17 at 13:19; Status DC Senna/Docusate Sodium (Rere-Colace) 1 tab BID PO Last administered on 08:22; Start 11/30/16 at 09:00 Magnesium Hydroxide (Milk Of Magnesia Liq) 30 ml Q12H PRN PO MILD - MODERATE CONSTIPATION; Start 11/30/16 at 02:45 Sennosides (Senokot) 17.2 mg Q12H PRN PO MODERATE - SEVERE CONSTIPATION; Start 11/30/16 at 02:45 Bisacodyl (Dulcolax Supp) 10 mg DAILY PRN RECTAL SEVERE CONSITIPATION; Start at 02:45 Lactulose (Lactulose Liq) 30 ml DAILY PRN PO SEVERE CONSITIPATION; Start at 02:45 Pantoprazole Sodium (Protonix Inj) 40 mg Q12H IV PUSH Last administered on 12/12 21:10; Start 11/30/16 at 09:00; Stop 12/13/16 at 08:25; Status DC Miscellaneous Information Patient in critical care unit? Ass... Q361D .XX ; Start 11/30/16 at 05:15 Chlorhexidine Gluconate (Chlorhexidine 2% Cloth) 3 pack DAILY@04 TOPICAL Last administered on 12/05/16 04:00; Start 12/01/16 at 04:00; Stop 12/05/16 at 04:01 ; Status DC Chlorhexidine Gluconate (Chlorhexidine 2% Cloth) 3 pack UNSCH PRN TOPICAL HYGIENIC CARE; Start 11/30/16 at 05:15; Stop 12/05/16 at 05:12; Status DC Aspirin (Aspirin Chew) 81 mg ONCE ONCE PO Last administered on 11/30/16 12:19 ; Start 11/30/16 at 12:00; Stop 11/30/16 at 12:01; Status DC Heparin Sodium/ Dextrose 250 ml @ 0 mls/hr TITRATE IV Last administered on 11/30 12:21; Start 11/30/16 at 12:15; Stop 11/30/16 at 13:49; Status DC Heparin Sodium (Porcine) (Heparin Inj) 5,000 units UNSCH PRN IV aPTT less than 25; Start 11/30/16 at 12:15; Stop 11/30/16 at 13:49; Status DC Heparin Sodium (Porcine) (Heparin Inj) 2,500 units UNSCH PRN IV aPTT 25 to 39; Start 11/30/16 at 12:15; Stop 11/30/16 at 13:49; Status DC Heparin Sodium (Porcine) (Heparin Inj) 4,000 units ONCE ONCE IV Last administered on 11/30/16 12:19; Start 11/30/16 at 12:15; Stop 11/30/16 at 12:16 ; Status DC Heparin Sodium/ Sodium Chloride 500 ml @ As Directed STK-MED ONCE .ROUTE Last administered on 11/30/16 12:36; Start 11/30/16 at 12:36; Stop 11/30/16 at 12:37 ; Status DC Midazolam HCl (Versed Inj) 2 mg STK-MED ONCE .ROUTE Last administered on 12:36; Start 11/30/16 at 12:36; Stop 11/30/16 at 12:37; Status DC Fentanyl Citrate (fentaNYL INJ) 100 mcg STK-MED ONCE .ROUTE Last administered on 11/30/16 12:36; Start 11/30/16 at 12:36; Stop 11/30/16 at 12:37; Status DC Dextrose (D50w (Syr) Inj) 50 ml STK-MED ONCE .ROUTE Last administered on 12:53; Start 11/30/16 at 12:53; Stop 11/30/16 at 12:54; Status DC Phenylephrine HCl (Neosynephrine Inj) 40 mg STK-MED ONCE .ROUTE Last administered on 11/30/16 13:04; Start 11/30/16 at 13:04; Stop 11/30/16 at 13:05 ; Status DC Clopidogrel Bisulfate (Plavix) 600 mg STK-MED ONCE .ROUTE ; Start 11/30/16 at 13 :25; Stop 11/30/16 at 13:26; Status DC Sodium Chloride 1,000 ml @ 125 mls/hr Q8H IV Last administered on 11/30/16 21 :51; Start 11/30/16 at 13:42; Stop 11/30/16 at 17:41; Status DC Acetaminophen (Tylenol) 325 mg Q4H PRN PO PAIN SCALE 1 TO 2 Last administered on 12/13/16 17:13; Start 11/30/16 at 13:45 Aspirin (Aspirin Chew) 81 mg DAILY PO Last administered on 12/21/16 08:29; Start 11/30/16 at 13:45; Stop 12/22/16 at 09:42; Status DC Clopidogrel Bisulfate (Plavix) 600 mg ONCE ONCE PO ; Start 11/30/16 at 13:45; Stop 11/30/16 at 13:47; Status DC Clopidogrel Bisulfate (Plavix) 75 mg DAILY PO Last administered on 12/25/16 08 :06; Start 12/01/16 at 09:00; Stop 01/10/17 at 12:59; Status DC Miscellaneous Information 1 ONCE ONCE XX ; Start 11/30/16 at 13:45; Stop at 13:49; Status DC Atropine Sulfate (Atropine Inj) 0.5 mg UNSCH PRN IV VAGAL REPONSE; Start at 13:45 Ondansetron HCl (Zofran Inj) 4 mg Q4H PRN IV NAUSEA Last administered on 22:41; Start 11/30/16 at 13:45 Metoprolol Tartrate (Lopressor) 12.5 mg BID PO Last administered on 12/01/16 09:51; Start 11/30/16 at 21:00; Stop 12/14/16 at 16:12; Status DC Atorvastatin Calcium (Lipitor) 10 mg HS PO Last administered on 12/02/16 21:22 ; Start 11/30/16 at 21:00; Stop 12/12/16 at 09:02; Status DC Miscellaneous Information HOLD METFORMIN FOR... Q24H .XX ; Start 11/30/16 at 15: 00; Stop 12/02/16 at 14:59; Status DC Potassium Chloride 100 ml @ 50 mls/hr Q2H IV Last administered on 11/30/16 19 :24; Start 11/30/16 at 18:00; Stop 11/30/16 at 21:59; Status DC Sodium Chloride (NS Flush) 5 ml Q21D IV FLUSH Last administered on 12/21/16 17: 19; Start 11/30/16 at 18:00 Heparin Sodium (Porcine) (Heparin Central Flush) 500 units Q21D IV FLUSH Last administered on 11/30/16 18:04; Start 11/30/16 at 18:00 Sodium Chloride (NS Flush) 5 ml UNSCH PRN IV FLUSH SEE LABEL COMMENTS; Start at 18:00 Heparin Sodium (Porcine) (Heparin Central Flush) 250 units UNSCH PRN IV FLUSH FLUSH AFTER USING IV ACCESS Last administered on 01/12/17 05:26; Start at 18:00 Lorazepam (Ativan Inj) 0.5 mg ONCE ONCE IV PUSH Last administered on 06:37; Start 12/01/16 at 06:30; Stop 12/01/16 at 06:31; Status DC Lorazepam (Ativan Inj) 0.5 mg ONCE ONCE IV Last administered on 12/01/16 07: 43; Start 12/01/16 at 07:45; Stop 12/01/16 at 07:46; Status DC Potassium Chloride 30 meq/ Sodium Chloride 115 ml @ 38.333 mls/ hr Q3H IV- CENTRAL Last administered on 12/01/16 12:43; Start 12/01/16 at 08:30; Stop at 14:29; Status DC Vancomycin HCl 2100 mg/Sodium Chloride 521 ml @ 250 mls/hr ONCE ONCE IV Last administered on 12/01/16 12:43; Start 12/01/16 at 12:00; Stop 12/01/16 at 14:06 ; Status DC Pharmacy Profile Note 0 ml @ 0 mls/hr UNSCH OTHER ; Start 12/01/16 at 10:30; Status UNV Pharmacy Profile Note 0 ml @ 0 mls/hr UNSCH OTHER ; Start 12/01/16 at 11:00; Stop 12/01/16 at 13:07; Status DC Vancomycin HCl 1250 mg/Sodium Chloride 262.5 ml @ 262.5 mls/ hr Q24H IV ; Start 12/02/16 at 09:00; Stop 12/02/16 at 09:00; Status DC Ceftriaxone Sodium 2000 mg/ Sodium Chloride 100 ml @ 200 mls/hr Q24H IV ; Start 12/01/16 at 14:00; Stop 12/01/16 at 16:10; Status DC Thiamine HCl 100 mg/Sodium Chloride 101 ml @ 101 mls/hr DAILY IV Last administered on 12/01/16 14:09; Start 12/01/16 at 13:00; Stop 12/02/16 at 08:28 ; Status DC Flumazenil (Romazicon Inj) 0.2 mg Q1M PRN IV PUSH SEE LABEL COMMENTS; Start at 13:00 Lorazepam (Ativan) 1 mg Q4H PRN PO CIWA 8 - 10; Start 12/01/16 at 13:00; Stop 12/04/16 at 09:29; Status DC Lorazepam (Ativan Inj) 1 mg Q4H PRN IV PUSH CIWA 8 - 10 Last administered on 21:52; Start 12/01/16 at 13:00; Stop 12/04/16 at 09:29; Status DC Lorazepam (Ativan) 2 mg Q2H PRN PO CIWA 11-14; Start 12/01/16 at 13:00; Stop at 09:29; Status DC Lorazepam (Ativan Inj) 2 mg Q2H PRN IV PUSH CIWA 11-14 Last administered on 04:37; Start 12/01/16 at 13:00; Stop 12/04/16 at 09:29; Status DC Lorazepam (Ativan Inj) 2 mg Q1H PRN IV PUSH CIWA 15-20; Start 12/01/16 at 13:00 ; Stop 12/04/16 at 09:29; Status DC Lorazepam (Ativan Inj) 2 mg Q15M PRN IV PUSH CIWA > 20; Start 12/01/16 at 13:00 ; Stop 12/04/16 at 09:29; Status DC Sodium Chloride 1,000 ml @ 999 mls/hr BOLUS ONCE IV Last administered on 12/01 14:09; Start 12/01/16 at 13:00; Stop 12/01/16 at 14:06; Status DC Sodium Chloride 1,000 ml @ 999 mls/hr BOLUS ONCE IV Last administered on 12/01 14:09; Start 12/01/16 at 13:00; Stop 12/01/16 at 14:06; Status DC Morphine Sulfate (Morphine Inj) 8 mg STK-MED ONCE .ROUTE Last administered on 14:06; Start 12/01/16 at 14:04; Stop 12/01/16 at 14:05; Status DC Dexmedetomidine HCl 200 mcg/ Sodium Chloride 52 ml @ 0 mls/hr TITRATE IV ; Start 12/01/16 at 14:30; Stop 12/03/16 at 07:50; Status DC Albuterol/ Ipratropium (Duoneb Neb) 1 ampule Q6HR NEB NEB Last administered on 12/05/16 15:58; Start 12/01/16 at 16:00; Stop 12/05/16 at 16:00; Status DC Albuterol/ Ipratropium (Duoneb Neb) 1 ampule Q2HR NEB PRN NEB SHORTNESS OF BREATH Last administered on 12/28/16 13:14; Start 12/01/16 at 14:30; Stop 12/29 at 15:42; Status DC Cefazolin Sodium/ Dextrose 50 ml @ 100 mls/hr Q8H IV Last administered on 12/03 08:27; Start 12/01/16 at 18:00; Stop 12/06/16 at 09:11; Status DC Pharmacy Profile Note 0 ml @ 0 mls/hr UNSCH OTHER ; Start 12/01/16 at 16:15; Stop 12/03/16 at 10:51; Status DC Sodium Chloride 1,000 ml @ 50 mls/hr Q20H IV Last administered on 12/04/16 05 :40; Start 12/01/16 at 16:30; Stop 12/04/16 at 09:25; Status DC Acetaminophen (Tylenol 650 Mg/ 20 ml Liq) 650 mg Q6H PRN PO FEVER Last administered on 12/02/16 01:07; Start 12/01/16 at 17:30 Vancomycin HCl 2100 mg/Sodium Chloride 521 ml @ 250 mls/hr Q18H IV Last administered on 12/02/16 05:36; Start 12/02/16 at 06:00; Stop 12/02/16 at 11:38 ; Status DC Miscellaneous Information SPECIFIC LAB TO BE DRAWN:VANCO TROUGH DATE TO... ONCE ONCE .XX ; Start 12/03/16 at 17:45; Stop 12/03/16 at 17:46; Status Cancel Sodium Chloride 1,000 ml @ 999 mls/hr BOLUS ONCE IV Last administered on 12/02 06:30; Start 12/02/16 at 06:30; Stop 12/02/16 at 07:30; Status DC Methylprednisolone Sodium Succinate (SoluMEDROL INJ) 125 mg ONCE STAT IV PUSH Last administered on 12/02/16 07:14; Start 12/02/16 at 06:52; Stop 12/02/16 at 06:59; Status DC Methylprednisolone Sodium Succinate (SoluMEDROL INJ) 60 mg Q8HR IV PUSH Last administered on 12/05/16 05:17; Start 12/02/16 at 14:00; Stop 12/05/16 at 09:00 ; Status DC Etomidate (Amidate Inj) 20 mg STK-MED ONCE .ROUTE Last administered on 08:07; Start 12/02/16 at 07:29; Stop 12/02/16 at 07:30; Status DC Midazolam HCl (Versed Inj) 5 mg STK-MED ONCE .ROUTE Last administered on 08:07; Start 12/02/16 at 07:29; Stop 12/02/16 at 07:30; Status DC Rocuronium [place] (Zemuron Inj) 50 mg STK-MED ONCE .ROUTE Last administered on 12/02/16 08:08; Start 12/02/16 at 07:30; Stop 12/02/16 at 07:31; Status DC Enoxaparin Sodium (Lovenox Inj) 40 mg Q24H SQ Last administered on 12/20/16 09: 04; Start 12/02/16 at 09:00; Stop 12/20/16 at 09:13; Status DC Chlorhexidine Gluconate (Peridex 0.12% Liq) 15 ml BID@08,20 MT Last administered on 12/24/16 20:00; Start 12/02/16 at 08:00; Stop 12/25/16 at 21:39 ; Status DC Propofol 100 ml @ 0 mls/hr TITRATE IV Last administered on 12/02/16 19:59; Start 12/02/16 at 08:00; Stop 12/03/16 at 07:50; Status DC Fentanyl Citrate 250 ml @ 0 mls/hr TITRATE IV Last administered on 12/03/16 04 :05; Start 12/02/16 at 08:00; Stop 12/04/16 at 09:25; Status DC Metoprolol Tartrate (Lopressor Inj) 2.5 mg Q6H PRN IV PUSH HR >110 Last administered on 12/20/16 18:38; Start 12/02/16 at 08:15; Stop 12/22/16 at 09:53; Status DC Multivitamins 10 ml/Thiamine HCl 100 mg/Folic Acid 1 mg/Sodium Chloride 511.2 ml @ 125 mls/hr DAILY IV Last administered on 12/04/16 09:21; Start 12/02/16 at 09:00; Stop 12/05/16 at 09:00; Status DC Sodium Bicarbonate (Sodium Bicarbonate 8.4% Inj) 50 meq STK-MED ONCE .ROUTE ; Start 12/02/16 at 09:06; Stop 12/02/16 at 09:07; Status DC Sodium Bicarbonate (Sodium Bicarbonate 8.4% Inj) 50 meq NOW ONCE IV PUSH Last administered on 12/02/16 11:16; Start 12/02/16 at 09:45; Stop 12/02/16 at 09:46 ; Status DC Vasopressin 40 units/Dextrose 100 ml @ 4.5 mls/hr [id number] IV Last administered on 12/03/16 04:17; Start 12/02/16 at 11:04; Stop 12/06/16 at 07:32 ; Status DC Sodium Bicarbonate (Sodium Bicarbonate 8.4% Inj) 50 meq ONCE ONCE IV PUSH Last administered on 12/02/16 11:38; Start 12/02/16 at 11:15; Stop 12/02/16 at 11:22; Status DC Rocuronium [place] (Zemuron Inj) 50 mg BOLUS ONCE IV Last administered on 12/02 11:39; Start 12/02/16 at 11:15; Stop 12/02/16 at 11:22; Status DC Sodium Bicarbonate 50 ml @ As Directed STK-MED ONCE .ROUTE Last administered on 12/02/16 15:53; Start 12/02/16 at 11:06; Stop 12/02/16 at 11:07; Status DC Vancomycin HCl 2000 mg/Sodium Chloride 520 ml @ 250 mls/hr Q18H IV Last administered on 12/02/16 23:46; Start 12/03/16 at 00:00; Stop 12/03/16 at 10:51 ; Status DC Norepinephrine Bitartrate 250 ml @ 0 mls/hr TITRATE IV Last administered on 04:05; Start 12/02/16 at 15:15; Stop 12/08/16 at 10:23; Status DC Terbutaline Sulfate (Brethine Inj) 1 mg UNSCH PRN SQ For Extravasation; Start 12/02/16 at 15:15; Stop 12/29/16 at 15:59; Status DC Sodium Bicarbonate 150 meq/Sterile Water 1,000 ml @ 150 mls/hr Q6H40M IV Last administered on 12/03/16 04:16; Start 12/02/16 at 16:00; Stop 12/03/16 at 07:49 ; Status DC Iohexol (OMNIPAQUE 350 INJ (Hand Trucker)) 100 ml STK-MED ONCE OTHER ; Start at 12:30; Stop 12/02/16 at 15:48; Status DC Lidocaine HCl (Xylocaine 1% Inj (50 ml)) 50 ml STK-MED ONCE .ROUTE ; Start 12/02 at 19:06; Stop 12/02/16 at 19:07; Status DC Dextrose (D50w (Vial) Inj) 50 ml UNSCH PRN IV HYPOGLYCEMIA-SEE COMMENTS; Start 12/02/16 at 22:30; Stop 01/11/17 at 12:31; Status DC Glucagon (Glucagon Inj) 1 mg UNSCH PRN OTHER HYPOGLYCEMIA-SEE COMMENTS; Start 12/02/16 at 22:30; Stop 01/11/17 at 12:31; Status DC Insulin Aspart (NovoLOG SUPPLEMENTAL SCALE) 1 Q4HR SQ Last administered on 12/14 04:00; Start 12/03/16 at 00:00; Stop 12/14/16 at 08:16; Status DC Midazolam HCl 100 ml @ 0 mls/hr TITRATE IV ; Start 12/03/16 at 08:00; Stop 12/04 at 09:25; Status DC Polyethylene Glycol (Miralax) 17 gm DAILY PO Last administered on 01/14/17 08: 23; Start 12/04/16 at 09:00 Bumetanide (Bumex Inj) 1 mg STK-MED ONCE .ROUTE ; Start 12/03/16 at 11:46; Stop 12/03/16 at 11:47; Status DC Bumetanide (Bumex Inj) 1 mg NOW ONCE IV PUSH ; Start 12/03/16 at 15:00; Stop at 15:01; Status DC Cefepime HCl 2000 mg/Sodium Chloride 100 ml @ 200 mls/hr Q8H IV Last administered on 12/06/16 08:16; Start 12/03/16 at 17:00; Stop 12/06/16 at 09:08 ; Status DC Bumetanide (Bumex Inj) 1 mg ONCE ONCE IV PUSH Last administered on 12/04/16 10:00; Start 12/04/16 at 09:30; Stop 12/04/16 at 09:32; Status DC Potassium Chloride 100 ml @ 25 mls/hr Q4H IV ; Start 12/04/16 at 10:00; Stop at 17:59; Status DC Morphine Sulfate (Morphine Inj) 2 mg Q3H PRN IV PUSH pain 5-10 Last administered on 12/05/16t 05:16; Start 12/04/16 at 09:30; Stop 12/05/16 at 09:01 ; Status DC Potassium Chloride 100 ml @ 50 mls/hr Q2H PRN IV For Potassium 2.8 - 3.2 mEq/ L Last administered on 12/04/16t 21:17; Start 12/04/16 at 09:30; Stop 12/16/16 at 07:44; Status DC Potassium Chloride 100 ml @ 50 mls/hr Q2H PRN IV For Potassium 2.8 - 3.2 mEq/L ; Start 12/04/16 at 09:30; Stop 12/16/16 at 07:44; Status DC Potassium Bicarb/ Potassium Chloride (K-Lyte Cl Eff) 50 meq UNSCH PRN PO For Potassium 3.3 - 3.5 mEq/L; Start 12/04/16 at 09:30; Stop 12/16/16 at 07:44; Status DC Potassium Chloride 100 ml @ 25 mls/hr UNSCH PRN IV For Potassium 3.3 - 3.5 mEq /L; Start 12/04/16 at 09:30; Stop 12/16/16 at 07:44; Status DC Potassium Chloride 100 ml @ 50 mls/hr Q2H PRN IV For Potassium 3.3 - 3.5 mEq/L ; Start 12/04/16 at 09:30; Stop 12/16/16 at 07:44; Status DC Magnesium Sulfate 4 gm/Sodium Chloride 100 ml @ 50 mls/hr UNSCH PRN IV For Magnesium 0.9 - 1.1 mg/dL; Start 12/04/16 at 09:30; Stop 12/16/16 at 07:44; Status DC Magnesium Oxide (Mag-Ox) 800 mg UNSCH PRN PO For Magnesium 1.2 - 1.6 mg/dL; Start 12/04/16 at 09:30; Stop 12/16/16 at 07:44; Status DC Magnesium Sulfate 2 gm/Sodium Chloride 100 ml @ 50 mls/hr UNSCH PRN IV For Magnesium 1.2 - 1.6 mg/dL; Start 12/04/16 at 09:30; Stop 12/16/16 at 07:44; Status DC Potassium Phosphate (K-Phos) 2,000 mg Q4H PRN PO For Phosphorus < 2.5 mg/dL; Start 12/04/16 at 09:30; Stop 12/16/16 at 07:45; Status DC Sodium Phosphate 30 mmol/Sodium Chloride 250 ml @ 42 mls/hr UNSCH PRN IV For Phosphorus < 2.5 mg/dL Last administered on 12/06/16 06:41; Start 12/04/16 at 09:30; Stop 12/16/16 at 07:45; Status DC Potassium Phosphate (K-Phos) 2,000 mg UNSCH PRN PO/TUBE SEE LABEL COMMENTS; Start 12/04/16 at 09:30; Stop 12/16/16 at 07:45; Status DC Potassium Phosphate 30 mmol/ Sodium Chloride 260 ml @ 42 mls/hr UNSCH PRN IV SEE LABEL COMMENTS; Start 12/04/16 at 09:30; Stop 12/16/16 at 07:45; Status DC Potassium Bicarb/ Potassium Chloride (K-Lyte Cl Eff) 25 meq ONCE ONCE PO ; Start 12/04/16 at 09:30; Stop 12/04/16 at 09:42; Status DC Bumetanide (Bumex Inj) 1 mg ONCE ONCE IV PUSH Last administered on 12/04/16 12:32; Start 12/04/16 at 12:00; Stop 12/04/16 at 12:01; Status DC Calcium Gluconate 1 gm/Sodium Chloride 110 ml @ 110 mls/hr ONCE ONCE IV Last administered on 12/05/16 10:29; Start 12/05/16 at 09:30; Stop 12/05/16 at 10:29 ; Status DC Methylprednisolone Sodium Succinate (SoluMEDROL INJ) 40 mg Q12HR IV PUSH Last administered on 12/10/16 20:09; Start 12/05/16 at 09:00; Stop 12/11/16 at 09:04 ; Status DC Thiamine HCl (Vitamin B1) 100 mg DAILY PO Last administered on 01/10/17 11:07 ; Start 12/05/16 at 09:00; Stop 01/10/17 at 13:03; Status DC Multivitamins (Theragran) 1 tab DAILY PO Last administered on 01/14/17 08:22; Start 12/05/16 at 09:00 Folic Acid (Folate) 1 mg DAILY PO Last administered on 12/25/16 08:07; Start 12/05/16 at 09:00; Stop 01/10/17 at 13:20; Status DC Morphine Sulfate (Morphine Inj) 2 mg Q2H PRN IV PUSH pain 5-10 Last administered on 12/17/16 01:20; Start 12/05/16 at 10:30; Stop 12/17/16 at 10:52; Status DC Albuterol/ Ipratropium (Duoneb Neb) 1 ampule Q4HR NEB NEB Last administered on 12/10/16 03:40; Start 12/06/16 at 08:00; Stop 12/10/16 at 08:00; Status DC Sodium Chloride 1,000 ml @ 125 mls/hr Q8H IV Last administered on 12/07/16 21 :33; Start 12/06/16 at 07:30; Stop 12/08/16 at 10:23; Status DC Rifampin (Rifampin) 300 mg Q12HR PO Last administered on 01/14/17 08:22; Start 12/06/16 at 09:15; Stop 01/15/17 at 23:00; Status Future hold Cefazolin Sodium/ Dextrose 50 ml @ 100 mls/hr Q8H IV Last administered on 01/01 09:53; Start 12/06/16 at 10:00; Stop 01/01/17 at 12:49; Status DC Levofloxacin (Levaquin) 750 mg Q24H PO Last administered on 12/12/16 08:58; Start 12/06/16 at 10:00; Stop 12/13/16 at 09:59; Status DC Insulin Detemir (Levemir Inj) 5 units Q12HR SQ Last administered on 12/13/16 21:29; Start 12/07/16 at 09:00; Stop 12/14/16 at 08:17; Status DC Methylnaltrexone [place] (Relistor Inj) 12 mg ONCE ONCE SQ Last administered on 12/07/16 16:58; Start 12/07/16 at 15:00; Stop 12/07/16 at 15:11; Status DC Metoprolol Tartrate (Lopressor Inj) 2.5 mg ONCE ONCE IV PUSH Last administered on 12/08/16 15:15; Start 12/08/16 at 15:00; Stop 12/08/16 at 15:01 ; Status DC Diltiazem HCl (Cardizem Inj) 10 mg ONCE ONCE IV ; Start 12/08/16 at 15:15; Stop 12/08/16 at 16:09; Status DC Metoprolol Tartrate (Lopressor) 50 mg Q12HR PO Last administered on 12/13/16 20:52; Start 12/08/16 at 21:00; Stop 12/14/16 at 09:12; Status DC Diltiazem HCl (Cardizem) 60 mg Q6H PO Last administered on 12/18/16 17:25; Start 12/09/16 at 05:00; Stop 12/18/16 at 18:39; Status DC Lorazepam (Ativan Inj) 1 mg Q4H PRN IV PUSH ANXIETY AND/OR AGITATION Last administered on 12/31/16 14:16; Start 12/09/16 at 15:15 Haloperidol Lactate (Haldol Inj) 2 mg Q8H PRN IM AGITATION AND/OR HALLUCINATION ; Start 12/10/16 at 17:00 Methylprednisolone Sodium Succinate (SoluMEDROL INJ) 20 mg Q12HR IV PUSH Last administered on 12/13/16 20:50; Start 12/11/16 at 21:00; Stop 12/13/16 at 22:00 ; Status DC Atorvastatin Calcium (Lipitor) 40 mg HS PO Last administered on 01/13/17 21:03 ; Start 12/12/16 at 21:00; Status Future hold Sodium Chloride (NS Flush) See Protocol DAILY IV FLUSH Last administered on 08:21; Start 12/13/16 at 09:00 Sodium Chloride (NS Flush) See Protocol UNSCH PRN IV FLUSH SEE PROTOCOL TABLE; Start 12/12/16 at 17:00 Heparin Sodium (Porcine) (Heparin Central Flush) See Protocol DAILY IV FLUSH Last administered on 01/14/17 10:04; Start 12/13/16 at 09:00 Heparin Sodium (Porcine) (Heparin Central Flush) See Protocol UNSCH PRN IV FLUSH SEE PROTOCOL TABLE; Start 12/12/16 at 17:00 Sodium Chloride (NS Flush) UNSCH PRN IV FLUSH SEE PROTOCOL TABLE Last administered on 12/19/16 01:59; Start 12/12/16 at 17:00 Sodium Chloride 250 ml @ 15 mls/hr ONCE ONCE IV Last administered on 09:34; Start 12/13/16 at 08:15; Stop 12/14/16 at 00:54; Status DC Acetaminophen (Tylenol) 650 mg Q4H PRN PO SEE LABEL COMMENTS; Start 12/13/16 at 08:15; Stop 12/13/16 at 12:16; Status DC Diphenhydramine HCl (Benadryl) 25 mg Q4H PRN PO SEE LABEL COMMENTS; Start 12/13 at 08:15; Stop 12/13/16 at 12:16; Status Cancel Prednisone (Deltasone) 40 mg DAILY PO Last administered on 12/16/16 08:53; Start 12/14/16 at 09:00; Stop 12/16/16 at 09:28; Status DC Pantoprazole Sodium (Protonix) 40 mg Q12HR PO Last administered on 12/22/16 09: 01; Start 12/13/16 at 09:00; Stop 12/22/16 at 09:49; Status DC Diphenhydramine HCl (Benadryl) 25 mg Q4H PRN PO SEE LABEL COMMENTS; Start 12/13 at 17:15; Stop 12/13/16 at 21:16; Status DC Insulin Aspart (NovoLOG SUPPLEMENTAL SCALE) 1 ACHS SLIDING SCALE SQ Last administered on 12/24/16 21:13; Start 12/14/16 at 11:00; Stop 12/25/16 at 21:39 ; Status DC Insulin Detemir (Levemir Inj) 6 units Q12HR SQ Last administered on 12/30/16 09:27; Start 12/14/16 at 09:00; Stop 12/30/16 at 12:40; Status DC Metoprolol Tartrate (Lopressor) 75 mg Q12HR PO Last administered on 12/14/16 12:00; Start 12/14/16 at 12:00; Stop 12/14/16 at 16:10; Status DC Etomidate (Amidate Inj) 25 mg ONCE ONCE IVP ; Start 12/14/16 at 12:15; Stop at 18:48; Status DC Fentanyl Citrate (fentaNYL INJ) 200 mcg ONCE ONCE IV ; Start 12/14/16 at 12:15 ; Stop 12/14/16 at 18:48; Status DC Succinylcholine Chloride (Quelicin Inj) 150 mg ONCE ONCE IV ; Start 12/14/16 at 12:15; Stop 12/14/16 at 18:48; Status DC Metoprolol Tartrate (Lopressor) 100 mg Q12HR PO Last administered on 12/22/16 09:01; Start 12/14/16 at 21:00; Stop 12/22/16 at 12:48; Status DC Metoprolol Tartrate (Lopressor) 25 mg ONCE ONCE PO Last administered on 16:55; Start 12/14/16 at 16:15; Stop 12/14/16 at 16:16; Status DC Iron Sucrose 100 mg/Sodium Chloride 105 ml @ 105 mls/hr DAILY IV Last administered on 12/18/16 08:01; Start 12/16/16 at 09:00; Stop 12/18/16 at 09:59; Status DC Nitroglycerin (Nitrostat Sl) 0.4 mg Q5M PRN SL CHEST PAIN; Start 12/16/16 at 00: 15 Prednisone (Deltasone) 20 mg DAILY PO Last administered on 12/20/16 09:04; Start 12/17/16 at 09:00; Stop 12/20/16 at 10:01; Status DC Gadodiamide (Omniscan Pf Inj) 21 ml STK-MED ONCE IV Last administered on 15:41; Start 12/17/16 at 15:41; Stop 12/17/16 at 15:42; Status DC Oxycodone HCl (Roxicodone) 10 mg Q4H PRN PO PAIN 6-10 Last administered on 02:37; Start 12/17/16 at 19:00; Stop 12/21/16 at 08:51; Status DC Diltiazem HCl (Cardizem Inj) 20 mg ONCE PRN IV if HR 110-130 Last administered on 12/17/16 21:49; Start 12/17/16 at 21:30; Stop 12/17/16 at 22:30; Status DC Diltiazem HCl (Cardizem Inj) 20 mg ONCE ONCE IVP ; Start 12/17/16 at 21:30; Stop 12/17/16 at 21:40; Status DC Diltiazem HCl 125 mg/Sodium Chloride 125 ml @ 0 mls/hr TITRATE IV Last administered on 12/17/16 22:12; Start 12/17/16 at 21:30; Stop 12/19/16 at 18:12; Status DC Lorazepam (Ativan) 0.5 mg DAILY PRN PO ANXIETY Last administered on 12/19/16 08 :29; Start 12/18/16 at 15:45; Status Future Hold Diltiazem HCl (Cardizem) 90 mg Q6H PO Last administered on 12/25/16 12:14; Start 12/18/16 at 23:00; Status Future Hold Diltiazem HCl (Cardizem) 30 mg NOW ONCE PO Last administered on 12/18/16 19:33 ; Start 12/18/16 at 19:30; Stop 12/18/16 at 19:31; Status DC Diltiazem HCl (Cardizem Inj) 10 mg NOW ONCE IV Last administered on 12/18/16 19:32; Start 12/18/16 at 19:30; Stop 12/18/16 at 19:31; Status DC Alteplase, Recombinant (Cathflo Activase Inj) 2 mg UNSCH X1 IV FLUSH ; Start at 19:45; Stop 12/18/16 at 23:00; Status DC Metoprolol Tartrate (Lopressor Inj) 5 mg ONCE ONCE IV PUSH Last administered on 12/19/16 05:40; Start 12/19/16 at 05:30; Stop 12/19/16 at 05:31; Status DC Digoxin (Lanoxin Inj) 0.5 mg NOW STAT IVS Last administered on 12/19/16 17:19 ; Start 12/19/16 at 16:51; Stop 12/19/16 at 17:04; Status DC Digoxin (Lanoxin Inj) 0.25 mg Q6H IVS Last administered on 12/20/16 03:54; Start 12/19/16 at 23:00; Stop 12/20/16 at 05:01; Status DC Digoxin (Lanoxin) 0.125 mg DAILY PO Last administered on 12/21/16 08:29; Start 12/20/16 at 09:00; Stop 12/21/16 at 11:59; Status DC Furosemide (Lasix Inj) 20 mg ONCE ONCE IV PUSH Last administered on 12/19/16 18:12; Start 12/19/16 at 17:45; Stop 12/19/16 at 17:46; Status DC Potassium Bicarb/ Potassium Chloride (K-Lyte Cl Eff) 25 meq ONCE ONCE PO Last administered on 12/19/16 18:12; Start 12/19/16 at 17:45; Stop 12/19/16 at 17: 46; Status DC Diltiazem HCl 125 mg/Sodium Chloride 125 ml @ 0 mls/hr TITRATE IV Last administered on 12/30/16 16:37; Start 12/19/16 at 18:15; Stop 12/31/16 at 01:45 ; Status DC Diltiazem HCl (Cardizem Inj) 18 mg NOW ONCE IV Last administered on 12/19/16 19:29; Start 12/19/16 at 18:15; Stop 12/19/16 at 18:16; Status DC Apixaban (Eliquis) 5 mg BID PO ; Start 12/20/16 at 10:00; Stop 12/20/16 at 10:00; Status DC Apixaban (Eliquis) 5 mg BID PO Last administered on 12/21/16 21:02; Start at 10:00; Stop 12/22/16 at 09:49; Status DC Diltiazem HCl (Cardizem Inj) 10 mg ONCE ONCE IV ; Start 12/20/16 at 09:30; Stop 12/20/16 at 09:31; Status DC Prednisone (Deltasone) 10 mg DAILY PO Last administered on 12/28/16 08:14; Start 12/21/16 at 09:00; Stop 12/28/16 at 13:58; Status DC Atropine Sulfate (Atropine Inj) 1 mg STK-MED ONCE .ROUTE ; Start 12/20/16 at 12: 45; Stop 12/20/16 at 12:46; Status DC Epinephrine HCl (EPINEPHrine (1:10,000) INJ) 1 mg STK-MED ONCE .ROUTE ; Start at 12:45; Stop 12/20/16 at 12:46; Status DC Acetaminophen (Tylenol) 650 mg ONCE ONCE PO Last administered on 12/20/16 18: 39; Start 12/20/16 at 18:45; Stop 12/20/16 at 18:46; Status DC Diphenhydramine HCl (Benadryl) 25 mg ONCE ONCE PO Last administered on 18:39; Start 12/20/16 at 18:45; Stop 12/20/16 at 18:46; Status DC Calcium Carbonate (Tums Chew) 500 mg ONCE ONCE CHEW Last administered on 00:45; Start 12/21/16 at 00:45; Stop 12/21/16 at 00:46; Status DC Calcium Carbonate (Tums Chew) 500 mg ONCE ONCE CHEW Last administered on 04:52; Start 12/21/16 at 05:00; Stop 12/21/16 at 05:01; Status DC Oxycodone HCl (Roxicodone) 15 mg Q4H PRN PO PAIN 6-10 Last administered on 01/09 21:26; Start 12/21/16 at 11:00; Stop 01/10/17 at 13:19; Status DC Digoxin (Lanoxin Inj) 0.5 mg NOW STAT IVS Last administered on 12/21/16 12:41 ; Start 12/21/16 at 11:49; Stop 12/21/16 at 11:50; Status DC Digoxin (Lanoxin Inj) 0.25 mg Q6H IVS Last administered on 12/21/16 17:19; Start 12/21/16 at 18:00; Stop 12/22/16 at 00:01; Status DC Digoxin (Lanoxin) 0.25 mg DAILY PO Last administered on 12/25/16 08:06; Start 12/22/16 at 09:00; Status Future Hold Calcium Carbonate (Tums Chew) 500 mg ONCE ONCE CHEW ; Start 12/22/16 at 01:00; Stop 12/22/16 at 01:01; Status DC Heparin Sodium (Porcine) (Heparin Inj) 5,000 units UNSCH PRN IV APTT LESS THAN 25; Start 12/22/16 at 15:15; Stop 12/23/16 at 00:05; Status DC Heparin Sodium (Porcine) (Heparin Inj) 2,500 units UNSCH PRN IV APTT 25 TO 39; Start 12/22/16 at 15:15; Stop 12/23/16 at 00:05; Status DC Heparin Sodium/ Dextrose 250 ml @ 0 mls/hr TITRATE IV ; Start 12/22/16 at 09:15; Stop 12/22/16 at 09:42; Status DC Sucralfate (Carafate Liq) 1 gm ACHS PO Last administered on 01/14/17 11:14; Start 12/22/16 at 11:00 Metoprolol Tartrate (Lopressor Inj) 5 mg Q1HR PRN IV PUSH RAPID HEART RATE Last administered on 12/30/16 10:37; Start 12/22/16 at 09:45 Pantoprazole Sodium (Protonix Inj) 40 mg Q12H IV PUSH Last administered on 01/14 10:05; Start 12/22/16 at 10:00 Aspirin (Ecotrin Ec) 81 mg DAILY PO Last administered on 12/25/16 08:06; Start 12/23/16 at 09:00; Stop 01/10/17 at 14:17; Status DC Heparin Sodium/ Dextrose 250 ml @ 0 mls/hr TITRATE IV Last administered on 12:43; Start 12/22/16 at 10:00; Stop 12/23/16 at 00:05; Status DC Metoprolol Tartrate (Lopressor) 25 mg Q6HR PO Last administered on 01/14/17 05 :24; Start 12/22/16 at 13:00 Furosemide (Lasix Inj) 20 mg ONCE ONCE IV PUSH Last administered on 12/22/16 12:44; Start 12/22/16 at 13:00; Stop 12/22/16 at 13:01; Status DC Furosemide (Lasix Inj) 20 mg ONCE IV PUSH Last administered on 12/23/16 02:31; Start 12/22/16 at 23:00; Stop 12/23/16 at 06:00; Status DC Morphine Sulfate (Morphine Inj) 2 mg Q4H PRN IV PUSH pain >5 Last administered on 12/29/16 14:08; Start 12/23/16 at 00:00; Stop 12/29/16 at 15:59; Status DC Diphenhydramine HCl (Benadryl) 25 mg ONCE ONCE PO Last administered on 04:04; Start 12/23/16 at 23:45; Stop 12/23/16 at 23:46; Status DC Acetaminophen (Tylenol) 650 mg ONCE ONCE PO Last administered on 12/24/16 04: 04; Start 12/23/16 at 23:45; Stop 12/23/16 at 23:46; Status DC Furosemide (Lasix Inj) 20 mg DAILY IV PUSH Last administered on 01/06/17 08:59 ; Start 12/24/16 at 09:15; Stop 01/06/17 at 10:08; Status DC Lactated Ringer's 1,000 ml @ 30 mls/hr Q24H PRN IV SEE LABEL COMMENTS; Start at 22:00; Stop 12/26/16 at 14:00; Status DC Sodium Chloride 500 ml @ 30 mls/hr [id number] PRN IV SEE LABEL COMMENTS; Start 12/24/16 at 22:00; Stop 12/27/16 at 21:59; Status DC Metoprolol Tartrate (Lopressor) 25 mg LEAD DRIVER PRN PO SEE LABEL COMMENTS; Start 12/24/16 at 22:00; Stop 12/27/16 at 21:59; Status DC Povidone Iodine (Betadine 5% Antisepsis Kit) 1 applic LEAD DRIVER PRN EACH NARE SEE LABEL COMMENTS; Start 12/24/16 at 22:00; Stop 12/27/16 at 21:59; Status DC Chlorhexidine Gluconate (Chlorhexidine 2% Cloth) 3 pack LEAD DRIVER PRN TOPICAL SEE LABEL COMMENTS; Start 12/24/16 at 22:00; Stop 12/27/16 at 21:59; Status DC Insulin Human Regular (NovoLIN R INJ) See Protocol Table ... LEAD DRIVER PRN SQ SEE PROTOCOL TABLE; Start 12/24/16 at 22:00; Stop 12/25/16 at 21:37; Status DC Propofol 100 ml @ As Directed STK-MED ONCE .ROUTE ; Start 12/25/16 at 19:27; Stop 12/25/16 at 19:28; Status DC Midazolam HCl (Versed Inj) 2 mg STK-MED ONCE .ROUTE ; Start 12/25/16 at 20:09; Stop 12/25/16 at 20:10; Status DC Morphine Sulfate (Morphine Inj) 4 mg STK-MED ONCE .ROUTE ; Start 12/25/16 at 20: 10; Stop 12/25/16 at 20:11; Status DC Propofol 100 ml @ 0 mls/hr TITRATE IV ; Start 12/25/16 at 20:15; Stop 12/25/16 at 21:28; Status DC Propofol (Diprivan 200 Mg/20 ml Inj) 200 mg STK-MED ONCE IV ; Start 12/25/16 at 18:30; Stop 12/25/16 at 20:15; Status DC Phenylephrine HCl (Neosynephrine/ NS 1000 Mcg/10ml Syr) 500 mcg STK-MED ONCE IV ; Start 12/25/16 at 18:32; Stop 12/25/16 at 20:17; Status DC Lactated Ringer's (Lr 1000 ml Inj) 1,000 ml STK-MED ONCE IV ; Start 12/25/16 at 18:32; Stop 12/25/16 at 20:17; Status DC Sodium Chloride (NS 500 ml Inj) 500 ml STK-MED ONCE IV ; Start 12/25/16 at 18:32 ; Stop 12/25/16 at 20:17; Status DC Miscellaneous Information ALL NURSING DEPARTME... UNSCH PRN .XX SEE LABEL COMMENTS; Start 12/25/16 at 20:30; Stop 12/26/16 at 20:29; Status DC Phenylephrine HCl (Neosynephrine Inj) 40 mg STK-MED ONCE .ROUTE ; Start at 20:25; Stop 12/25/16 at 20:26; Status DC Propofol 100 ml @ 0 mls/hr TITRATE IV Last administered on 01/03/17t 14:37; Start 12/25/16 at 20:30; Stop 01/03/17 at 20:19; Status DC Phenylephrine HCl (Neosynephrine/ NS 1000 Mcg/10ml Syr) 1,000 mcg STK-MED ONCE .ROUTE ; Start 12/25/16 at 20:28; Stop 12/25/16 at 20:29; Status DC Fentanyl Citrate 250 ml @ As Directed STK-MED ONCE .ROUTE ; Start 12/25/16 at 20:34; Stop 12/25/16 at 20:35; Status DC Phenylephrine HCl 40 mg/Dextrose 500 ml @ 0 mls/hr TITRATE IV Last administered on 12/27/16 03:16; Start 12/25/16 at 20:45; Stop 12/29/16 at 15:59 ; Status DC Terbutaline Sulfate (Brethine Inj) 1 mg UNSCH PRN SQ FOR EXTRAVASATION PROTOCOL ; Start 12/25/16 at 20:45; Stop 12/29/16 at 16:00; Status DC Fentanyl Citrate 250 ml @ 0 mls/hr TITRATE IV ; Start 12/25/16 at 21:00; Stop at 16:00; Status DC Magnesium Oxide (Mag-Ox) 800 mg UNSCH PRN PO For Magnesium 1.2 - 1.6 mg/dL Last administered on 12/27/16 06:46; Start 12/25/16 at 21:00 Magnesium Sulfate 4 gm/Sodium Chloride 100 ml @ 50 mls/hr UNSCH PRN IV For Magnesium 0.9 - 1.1 mg/dL; Start 12/25/16 at 21:00 Magnesium Sulfate 2 gm/Sodium Chloride 100 ml @ 50 mls/hr UNSCH PRN IV For Magnesium 1.2 - 1.6 mg/dL; Start 12/25/16 at 21:00 Potassium Chloride 100 ml @ 50 mls/hr Q2H PRN IV For Potassium 2.8 - 3.2 mEq/L ; Start 12/25/16 at 21:00 Potassium Chloride 100 ml @ 50 mls/hr Q2H PRN IV For Potassium 3.3 - 3.5 mEq/ L Last administered on 01/08/17 04:35; Start 12/25/16 at 21:00 Potassium Chloride 100 ml @ 50 mls/hr Q2H PRN IV For Potassium 2.8 - 3.2 mEq/L ; Start 12/25/16 at 21:00 Potassium Chloride 100 ml @ 25 mls/hr UNSCH PRN IV For Potassium 3.3 - 3.5 mEq /L Last administered on 01/04/17 06:32; Start 12/25/16 at 21:00 Potassium Phosphate (K-Phos) 2,000 mg Q4H PRN PO For Phosphorus < 2.5 mg/dL; Start 12/25/16 at 21:00 Potassium Phosphate (K-Phos) 2,000 mg UNSCH PRN PO/TUBE SEE LABEL COMMENTS; Start 12/25/16 at 21:00 Potassium Phosphate 30 mmol/ Sodium Chloride 260 ml @ 42 mls/hr UNSCH PRN IV SEE LABEL COMMENTS; Start 12/25/16 at 21:00 Sodium Phosphate 30 mmol/Sodium Chloride 250 ml @ 42 mls/hr UNSCH PRN IV For Phosphorus < 2.5 mg/dL Last administered on 12/30/16 06:49; Start 12/25/16 at 21:00 Chlorhexidine Gluconate (Peridex 0.12% Liq) 15 ml BID@08,20 MT Last administered on 01/08/17 19:50; Start 12/26/16 at 08:00; Stop 01/11/17 at 12:33 ; Status DC Dextrose (D50w (Vial) Inj) 25 ml UNSCH PRN IV PUSH HYPOGLYCEMIA-SEE COMMENTS; Start 12/25/16 at 21:00; Stop 01/10/17 at 14:28; Status DC Insulin Human Regular (NovoLIN R SUPPLEMENTAL SCALE) 1 Q6HR SQ Last administered on 01/10/17 12:27; Start 12/26/16 at 00:00; Stop 01/10/17 at 14:28 ; Status DC Albuterol/ Ipratropium (Duoneb Neb) 1 ampule Q6HR NEB INH Last administered on 01/02/17 08:17; Start 12/25/16 at 22:00; Stop 01/02/17 at 15:48; Status DC Albuterol/ Ipratropium (Duoneb Neb) 1 ampule Q2HR NEB PRN INH WHEEZING Last administered on 01/02/17 19:29; Start 12/25/16 at 21:00 Dextrose 1,000 ml @ 42 mls/hr [id number] IV Last administered on 12/25/16 23:27 ; Start 12/25/16 at 21:00; Stop 12/26/16 at 14:01; Status DC Amiodarone HCl 150 mg/Dextrose 100 ml @ 600 mls/hr ONCE ONCE IV ; Start at 21:00; Stop 12/25/16 at 21:09; Status DC Amiodarone HCl 900 mg/Dextrose 500 ml @ 0 mls/hr CONTINUOUS IV ; Start 12/25/16 at 21:00; Stop 12/25/16 at 21:13; Status DC Magnesium Sulfate/ Dextrose 100 ml @ 100 mls/hr Q1H IV ; Start 12/25/16 at 21: 00; Stop 12/25/16 at 22:59; Status DC Potassium Chloride 100 ml @ 50 mls/hr BOLUS ONCE IV ; Start 12/25/16 at 21:00 ; Stop 12/25/16 at 22:59; Status DC Sodium Chloride 250 ml @ As Directed STK-MED ONCE .ROUTE ; Start 12/25/16 at 21 :04; Stop 12/25/16 at 21:05; Status DC Amiodarone HCl (Cordarone Inj) 150 mg STK-MED ONCE .ROUTE ; Start 12/25/16 at 21 :05; Stop 12/25/16 at 21:06; Status DC Amiodarone HCl 450 mg/Dextrose 250 ml @ 0 mls/hr CONTINUOUS IV Last administered on 01/03/17 01:19; Start 12/25/16 at 21:15; Stop 01/03/17 at 12:30 ; Status DC Sodium Chloride 1,000 ml @ 999 mls/hr BOLUS ONCE IV Last administered on 12/26 14:17; Start 12/26/16 at 14:00; Stop 12/26/16 at 15:00; Status DC Sodium Chloride 1,000 ml @ 75 mls/hr [id number] IV Last administered on 16:38; Start 12/26/16 at 14:00; Stop 12/28/16 at 23:00; Status DC Amiodarone HCl 150 mg/Dextrose 100 ml @ 100 mls/hr ONCE ONCE IV Last administered on 12/26/16 23:27; Start 12/26/16 at 23:00; Stop 12/26/16 at 23:59 ; Status DC Clopidogrel Bisulfate (Plavix) 150 mg NOW ONCE PO Last administered on 13:43; Start 12/28/16 at 12:30; Stop 12/28/16 at 12:34; Status DC Aspirin (Ecotrin Ec) 162 mg NOW ONCE PO Last administered on 12/28/16 13:43; Start 12/28/16 at 12:30; Stop 12/28/16 at 12:34; Status DC Clopidogrel Bisulfate (Plavix) 75 mg DAILY PO Last administered on 01/14/17 10 :04; Start 12/29/16 at 09:00 Aspirin (Ecotrin Ec) 162 mg DAILY PO Last administered on 01/14/17 08:22; Start 12/29/16 at 09:00; Status Future hold Prednisone (Deltasone) 5 mg DAILY PO Last administered on 01/14/17 08:23; Start 12/29/16 at 09:00; Status Future hold Furosemide (Lasix Inj) 40 mg ONCE ONCE IV PUSH Last administered on 12/28/16 23:10; Start 12/28/16 at 23:00; Stop 12/28/16 at 23:02; Status DC Atropine Sulfate (Atropine Inj) 1 mg STK-MED ONCE IV ; Start 12/26/16 at 05:00; Stop 12/29/16 at 10:52; Status DC Magnesium Sulfate/ Dextrose 100 ml @ 100 mls/hr Q1H IV Last administered on 17:49; Start 12/29/16 at 16:00; Stop 12/29/16 at 18:59; Status DC Potassium Chloride 100 ml @ 100 mls/hr Q1H IV Last administered on 12/29/16 17:14; Start 12/29/16 at 15:00; Stop 12/29/16 at 17:59; Status DC Metolazone (Zaroxolyn) 5 mg ONCE ONCE PO Last administered on 12/29/16 17:14 ; Start 12/29/16 at 16:00; Stop 12/29/16 at 16:01; Status DC Bumetanide (Bumex Inj) 1 mg ONCE ONCE IV PUSH Last administered on 12/29/16 16:22; Start 12/29/16 at 16:00; Stop 12/29/16 at 16:01; Status DC Levothyroxine Sodium (Synthroid) 50 mcg DAILY@06 PO Last administered on 05:30; Start 12/30/16 at 06:00; Stop 01/10/17 at 13:20; Status DC Sodium Phosphate 30 mmol/Sodium Chloride 260 ml @ 43.333 mls/ hr ONCE ONCE IV ; Start 12/30/16 at 15:00; Stop 12/30/16 at 20:59; Status DC Magnesium Sulfate/ Dextrose 100 ml @ 100 mls/hr Q1H IV Last administered on 14:30; Start 12/30/16 at 12:45; Stop 12/30/16 at 14:44; Status DC Potassium Chloride 100 ml @ 100 mls/hr Q1H IV Last administered on 12/30/16 18:31; Start 12/30/16 at 12:45; Stop 12/30/16 at 15:44; Status DC Insulin Detemir (Levemir Inj) 10 units Q12HR SQ Last administered on 01/03/17 21:05; Start 12/30/16 at 21:00; Stop 01/04/17 at 06:47; Status DC Acetaminophen (Tylenol) 650 mg ONCE ONCE PO Last administered on 12/30/16 23: 45; Start 12/30/16 at 23:45; Stop 12/30/16 at 23:46; Status DC Diphenhydramine HCl (Benadryl) 25 mg ONCE ONCE PO Last administered on 23:45; Start 12/30/16 at 23:45; Stop 12/30/16 at 23:46; Status DC Furosemide (Lasix Inj) 20 mg ONCE ONCE IV PUSH Last administered on 12/31/16 05:16; Start 12/30/16 at 23:45; Stop 12/30/16 at 23:46; Status DC Iohexol (Omnipaque 350 Inj) 75 ml STK-MED ONCE IV Last administered on 01:04; Start 12/31/16 at 01:04; Stop 12/31/16 at 01:05; Status DC Diltiazem HCl 125 mg/Sodium Chloride 125 ml @ 0 mls/hr TITRATE IV Last administered on 01/05/17 02:43; Start 12/31/16 at 01:45; Stop 01/06/17 at 15:03 ; Status DC Dexmedetomidine HCl 200 mcg/ Sodium Chloride 52 ml @ 0 mls/hr TITRATE IV Last administered on 12/31/16 21:25; Start 12/31/16 at 21:15; Stop 12/31/16 at 22:55 ; Status DC Dexmedetomidine HCl 1000 mcg/ Sodium Chloride 250 ml @ 0 mls/hr TITRATE IV Last administered on 01/01/17 00:38; Start 12/31/16 at 23:00; Stop 01/01/17 at 12:01; Status DC Phenylephrine HCl 160 mg/Sodium Chloride 1,016 ml @ 0 mls/hr TITRATE IV ; Start 01/01/17 at 11:00; Stop 01/01/17 at 11:00; Status DC Terbutaline Sulfate (Brethine Inj) 1 mg UNSCH PRN SQ For Extravasation; Start 01/01/17 at 10:45; Stop 01/10/17 at 13:03; Status DC Rocuronium [place] (Zemuron Inj) 100 mg BOLUS ONCE IV Last administered on 10:45; Start 01/01/17 at 10:45; Stop 01/01/17 at 10:46; Status DC Midazolam HCl (Versed Inj) 5 mg ONCE ONCE IM Last administered on 01/01/17 10 :45; Start 01/01/17 at 10:45; Stop 01/01/17 at 10:46; Status DC Chlorhexidine Gluconate (Peridex 0.12% Liq) 15 ml BID@08,20 MT Last administered on 01/14/17 08:00; Start 01/01/17 at 20:00 Propofol 100 ml @ 0 mls/hr TITRATE IV Last administered on 01/06/17 13:24; Start 01/01/17 at 10:45; Stop 01/08/17 at 14:39; Status DC Fentanyl Citrate 250 ml @ 0 mls/hr TITRATE IV Last administered on 01/06/17 04 :51; Start 01/01/17 at 10:45; Stop 01/06/17 at 15:05; Status DC Phenylephrine HCl 160 mg/Sodium Chloride 516 ml @ 0 mls/hr TITRATE IV Last administered on 01/06/17 11:20; Start 01/01/17 at 11:00; Stop 01/06/17 at 15:04 ; Status DC Furosemide (Lasix Inj) 40 mg ONCE ONCE IV PUSH Last administered on 01/01/17 14:41; Start 01/01/17 at 13:00; Stop 01/01/17 at 13:01; Status DC Vancomycin HCl 1000 mg/Sodium Chloride 250 ml @ 250 mls/hr ONCE ONCE IV Last administered on 8/17/17at 14:30; Start 01/01/17 at 14:30; Stop 01/01/17 at 15:29 ; Status DC Cefepime HCl 2000 mg/Sodium Chloride 100 ml @ 200 mls/hr Q12H IV Last administered on 01/07/17 02:47; Start 01/01/17 at 14:00; Stop 01/07/17 at 10:17 ; Status DC Vancomycin HCl 1000 mg/Sodium Chloride 250 ml @ 250 mls/hr ONCE ONCE IV Last administered on 01/02/17 16:02; Start 01/02/17 at 14:30; Stop 01/02/17 at 15:29 ; Status DC Potassium Chloride 100 ml @ 25 mls/hr BOLUS ONCE IV ; Start 01/03/17 at 08:30 ; Stop 01/03/17 at 12:30; Status DC Aspirin (Aspirin Supp) 300 mg DAILY RECTAL Last administered on 01/09/17 09:20 ; Start 01/03/17 at 09:00; Stop 01/10/17 at 12:59; Status DC Levothyroxine Sodium (Synthroid Inj) 25 mcg DAILY@06 IV PUSH Last administered on 01/10/17 06:45; Start 01/04/17 at 06:00; Stop 01/10/17 at 13:21; Status DC Rifampin 300 mg/ Sodium Chloride 100 ml @ 100 mls/hr Q12H IV Last administered on 01/10/17 12:28; Start 01/03/17 at 10:00; Stop 01/10/17 at 13:10 ; Status DC Albuterol/ Ipratropium (Duoneb Neb) 1 ampule Q6HR NEB NEB Last administered on 01/06/17 12:45; Start 01/03/17 at 10:00; Stop 01/06/17 at 10:50; Status DC Methylprednisolone Sodium Succinate (SoluMEDROL INJ) 20 mg DAILY IV PUSH Last administered on 01/10/17 08:46; Start 01/03/17 at 09:00; Stop 01/10/17 at 14:32 ; Status DC Amiodarone HCl 450 mg/Sodium Chloride 250 ml @ 0 mls/hr CONTINUOUS IV Last administered on 01/07/17 08:45; Start 01/03/17 at 13:00; Stop 01/07/17 at 09:29 ; Status DC Lidocaine HCl (Xylocaine 1% Inj (50 ml)) 50 ml STK-MED ONCE .ROUTE ; Start 01/03 at 12:33; Stop 01/03/17 at 12:34; Status DC Multivitamins 10 ml/Folic Acid 1 mg/Amino Acids/ Electrolytes/ Dextrose 2,010.2 ml @ 30 mls/hr Q24H IV-CENTRAL Last administered on 01/11/17 00:57; Start at 20:00; Stop 01/11/17 at 12:10; Status DC Insulin Detemir (Levemir Inj) 20 units Q12HR SQ Last administered on 01/06/17 09:00; Start 01/04/17 at 09:00; Stop 01/06/17 at 10:07; Status DC Potassium Chloride 100 ml @ 25 mls/hr BOLUS ONCE IV ; Start 01/04/17 at 07:00 ; Stop 01/04/17 at 10:59; Status DC Magnesium Sulfate/ Dextrose 100 ml @ 100 mls/hr Q1H IV Last administered on 08:00; Start 01/04/17 at 07:00; Stop 01/04/17 at 08:59; Status DC Methylnaltrexone [place] (Relistor Inj) 12 mg ONCE ONCE SQ Last administered on 01/04/17 07:30; Start 01/04/17 at 07:30; Stop 01/04/17 at 07:31; Status DC Mineral Oil (Fleet Mineral Oil Enema) 118 ml ONCE ONCE RECTAL Last administered on 01/04/17 07:00; Start 01/04/17 at 07:00; Stop 01/04/17 at 07:01 ; Status DC Artificial Tears (Tears Naturale Opth Soln) 1 drop Q8HR EACH EYE Last administered on 01/14/17 05:26; Start 01/04/17 at 14:00 Albuterol/ Ipratropium (Duoneb Neb) 1 ampule Q6HR NEB NEB Last administered on 01/10/17 09:02; Start 01/06/17 at 16:00; Stop 01/10/17 at 13:10; Status DC Albuterol/ Ipratropium (Duoneb Neb) 1 ampule Q6HR NEB NEB ; Start 01/06/17 at 16:00; Stop 01/06/17 at 16:00; Status DC Insulin Detemir (Levemir Inj) 30 units Q12HR SQ Last administered on 01/14/17 08:40; Start 01/06/17 at 21:00 Albumin Human (Albumin 25% Inj) 25 gm Q12H IV Last administered on 01/07/17 22 :27; Start 01/06/17 at 11:00; Stop 01/08/17 at 10:59; Status DC Furosemide (Lasix Inj) 20 mg Q12HR IV PUSH Last administered on 01/11/17 08:48 ; Start 01/06/17 at 21:00; Stop 01/11/17 at 11:52; Status DC Furosemide (Lasix Inj) 20 mg ONCE ONCE IV PUSH Last administered on 01/06/17 11:25; Start 01/06/17 at 10:15; Stop 01/06/17 at 10:23; Status DC Potassium Chloride 100 ml @ 25 mls/hr BOLUS ONCE IV Last administered on 01/06 13:25; Start 01/06/17 at 12:00; Stop 01/06/17 at 15:59; Status DC Acetazolamide Sodium (Diamox Inj) 500 mg ONCE ONCE IV PUSH Last administered on 01/06/17 11:25; Start 01/06/17 at 10:30; Stop 01/06/17 at 10:31; Status DC Diltiazem HCl 125 mg/Sodium Chloride 125 ml @ 5 mls/hr TITRATE PRN IV Blood Pressure Management; Start 01/06/17 at 15:15; Stop 01/07/17 at 09:29; Status DC Phenylephrine HCl 160 mg/Sodium Chloride 516 ml @ 7.74 mls/hr TITRATE PRN IV Blood Pressure Management; Start 01/06/17 at 15:15; Stop 01/10/17 at 13:19; Status DC Fentanyl Citrate 250 ml @ 5 mls/hr TITRATE PRN IV PAIN MANAGEMENT; Start at 15:15; Stop 01/10/17 at 13:01; Status DC Sodium Chloride 250 ml @ 15 mls/hr ONCE ONCE IV ; Start 01/06/17 at 17:00; Stop 01/07/17 at 10:04; Status DC Amiodarone HCl (Cordarone) 200 mg Q12HR PO Last administered on 01/14/17 08:22 ; Start 01/07/17 at 10:00 Cefepime HCl 2000 mg/Sodium Chloride 100 ml @ 200 mls/hr Q8H IV ; Start at 18:00; Stop 01/07/17 at 18:00; Status DC Furosemide (Lasix Inj) 40 mg ONCE ONCE IV PUSH Last administered on 01/07/17 11:22; Start 01/07/17 at 10:30; Stop 01/07/17 at 11:00; Status DC Potassium Chloride 100 ml @ 25 mls/hr BOLUS ONCE IV Last administered on 01/07 11:24; Start 01/07/17 at 10:30; Stop 01/07/17 at 14:29; Status DC Cefazolin Sodium/ Dextrose 50 ml @ 100 mls/hr Q8H IV Last administered on 01/14 08:21; Start 01/07/17 at 17:00; Stop 01/15/17 at 16:59 Levofloxacin (Levaquin) 750 mg DAILY@1700 PO ; Start 01/07/17 at 17:00; Stop at 16:59; Status Cancel Levofloxacin (Levaquin) 750 mg DAILY@1800 PO Last administered on 01/13/17 17: 04; Start 01/07/17 at 18:00; Stop 01/14/17 at 17:59 Propofol 100 ml @ 0 mls/hr TITRATE IV ; Start 01/08/17 at 14:45; Stop 01/10/17 at 12:59; Status DC Albuterol/ Ipratropium (Duoneb Neb) 1 ampule Q6HR NEB NEB Last administered on 01/14/17 10:09; Start 01/10/17 at 16:00 Levothyroxine Sodium (Synthroid) 50 mcg DAILY@0600 PO Last administered on 01/14 05:24; Start 01/11/17 at 06:00 Oxycodone/ Acetaminophen (Percocet 10-325 Mg) 1 tab Q4H PRN PO PAIN 1-10 Last administered on 01/14/17 10:01; Start 01/10/17 at 14:15 Oxycodone HCl (Roxicodone) 5 mg Q4H PRN PO BREAKTHROUGH PAIN Last administered on 01/12/17 23:06; Start 01/10/17 at 14:15 Potassium Chloride 100 ml @ 25 mls/hr BOLUS ONCE IV Last administered on 01/10 16:07; Start 01/10/17 at 15:30; Stop 01/10/17 at 19:29; Status DC Dextrose (D50w (Vial) Inj) 50 ml UNSCH PRN IV HYPOGLYCEMIA-SEE COMMENTS; Start 01/10/17 at 14:30; Stop 01/11/17 at 12:31; Status DC Glucagon (Glucagon Inj) 1 mg UNSCH PRN OTHER HYPOGLYCEMIA-SEE COMMENTS; Start 01/10/17 at 14:30; Stop 01/11/17 at 12:31; Status DC Insulin Aspart (NovoLOG SUPPLEMENTAL SCALE) 1 Q4H SQ Last administered on 00:00; Start 01/10/17 at 16:00; Stop 01/11/17 at 12:03; Status DC Temazepam (Restoril) 15 mg HS PRN PO SLEEP Last administered on 01/11/17 23:40 ; Start 01/11/17 at 11:45 Furosemide (Lasix Inj) 20 mg Q8H IV PUSH Last administered on 01/12/17 12:00; Start 01/11/17 at 12:00; Stop 01/12/17 at 14:57; Status DC Potassium Bicarb/ Potassium Chloride (K-Lyte Cl Eff) 25 meq Q12HR NG Last administered on 01/11/17 20:16; Start 01/11/17 at 12:00; Stop 01/11/17 at 21:01 ; Status DC Dextrose (D50w (Vial) Inj) 50 ml UNSCH PRN IV HYPOGLYCEMIA-SEE COMMENTS; Start 01/11/17 at 12:15 Glucagon (Glucagon Inj) 1 mg UNSCH PRN OTHER HYPOGLYCEMIA-SEE COMMENTS; Start 01/11/17 at 12:15 Insulin Aspart (NovoLOG SUPPLEMENTAL SCALE) 1 ACHS SLIDING SCALE SQ Last administered on 01/13/17 21:09; Start 01/11/17 at 16:00 Multivitamins 10 ml/Folic Acid 1 mg/Amino Acids/ Electrolytes/ Dextrose 1,010.2 ml @ 30 mls/hr Q24H IV Last administered on 01/11/17 19:57; Start 01/11/17 at 20:00; Stop 01/12/17 at 16:08; Status DC Furosemide (Lasix Inj) 20 mg Q12HR IV PUSH Last administered on 01/14/17t 08:22 ; Start 01/12/17 at 21:00 A/P Problem List: (1) Intractable abdominal pain ICD Code: R10.9 - Unspecified abdominal pain Status: Acute (2) Esophageal carcinoma ICD Code: C15.9 - Malignant neoplasm of esophagus, unspecified Status: Acute (3) SCC (squamous cell carcinoma) ICD Code: C44.92 - Squamous cell carcinoma of skin, unspecified Status: Acute (4) Hypokalemia ICD Code: E87.6 - Hypokalemia Status: Acute (5) Lactic acidosis ICD Code: E87.2 - Acidosis Status: Acute (6) Renal insufficiency ICD Code: N28.9 - Disorder of kidney and ureter, unspecified Status: Acute (7) Elevated troponin ICD Code: R74.8 - Abnormal levels of other serum enzymes Status: Acute (8) DM (diabetes mellitus) ICD Code: E11.9 - Type 2 diabetes mellitus without complications Status: Acute (9) Tobacco abuse ICD Code: Z72.0 - Tobacco abuse Status: Acute (10) NSTEMI (non-ST elevated myocardial infarction) ICD Code: I21.4 - Non-ST elevation (NSTEMI) myocardial infarction Status: Acute (11) Bacteremia due to Gram-positive bacteria ICD Code: R78.81 - Bacteremia Status: Acute (12) Encephalopathy, metabolic ICD Code: G93.41 - Metabolic encephalopathy Status: Acute Assessment and Plan Acute metabolic encephalopathy-resolved Possible alcohol withdrawal, improved. Chronic oxycodone use Encephalopathy most likely secondary to hypoxia, sepsis, now resolved. Completed therapy with Thiamine for EtOH withdrawal 12/05. Discontinue 01/10. Continue MVI daily. Acetaminophen for fever Currently off all sedation. On Percocet 10 q4. Oxycodone additional 5 as needed for breakthrough. Restoril 15 qhs prn sleep Acute hypoxemic respiratory failure - multifactorial, resolved History of COPD Anterior airway Tobacco abuse Bilateral pleural effusions - Emergently intubated and placed on mechanical ventilation 12/02/16, extubated 12/03/16 - Re intubated 01/01/17 PRVC ventilation 16////35. Extubated 01/06 -Now on nasal cannula. - CT chest revealed bilateral pleural effusions. Thoracentesis -1200 cc 12/30. Placement of Left #10 Belgian pigtail catheter 01/03. Was dislodged 01/09. Placement of right #10 Belgian pigtail catheter 01/06. Pulmonology following for chest tube management. Right pleural fluid Cytology negative for malignancy 01/06, Pleural fluid cytology negative 12/30 Pericardial effusion, tamponade status post pericardiocentesis 01/01/17 Atrial fibrillation with RVR currently normal sinus rhythm NSTEMI Dynamic LVOT obstruction Coronary artery disease status post bare metal stent to left circumflex Krause 12/01 Emergency Pericardiocentesis drains -01/01. Cc. Cultures no growth. Removed drain 01/06, Followup limited Echo 01/07EF 60-65%. Trivial small pericardial effusion present Cardiac catheterization 12/01 revealed EF around 60%. Left main normal. RCA normal. LAD 70% ostial. Bare stent left circumflex 70%. Resume ASA 162 mg daily, d/c rectal ASA/ Continue Plavix 75 mg daily Continue amiodarone 200 mg by mouth every 12 hours. Continue Metoprolol 25 mill grams every 6 hours 2-D echo no veg, EF 50-55%. Mild MR, mild AR. Pseudo-outflow obstruction due to concentric hypertrophy and hyperdynamic ventricle Change Lasix to 20 g IV twice a day. KCL Effervescent 25 bid x2. Holding home medications of losartan 100 mg, amlodipine 10 mg daily, normotensive. Continue atorvastatin 40 by mouth daily for dyslipidemia. Pericardial fluid cytology 01/01 - negative for malignancy Invasive adenocarcinoma of the esophagus Liver cirrhosis - Tolerating mechanical soft, thin liquids. Speech therapy has signed off - Calorie counts being performed. -Patient's intake improving. Discontinue TPN - Has biopsy proven invasive adenocarcinoma of esophagus - Status post EUS/esophageal stent placement 12/25 Dr. Tejeda. - IV Protonix twice a day continue. - Carafate 1 g by mouth daily per her GI - Surgery removed port, now signed off. Acute kidney failure/ATN resolved - Monitor renal function closely. Saxena catheter. -Lasix /KCL as per above Follow BMP in a.m. Septic shock-resolved MSSA bacteremia [id number] infection status post removal Pseudomonas pneumonia - Previously Rapid clinical improvement after [id number] was removed. remains off all pressors - Catheter tip culture blood culture and wound culture also positive for MSSA - Continue Rifampin, for synergy per ID (on po now), and Ancef, Levaquin He will need 6 weeks IV Abx . Has E PICC - Infectious disease Dr. Nassar. 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 Bell is following - Status post surgical resection for L parotid SCC at [facility] 10/01 - Hematology plans to give weekly Erbitux and XRT outpatient. Transfuse as needed for hemoglobin less than 8 Hypokalemia Hypo-magnesium Diabetes Hypothyroidism Chronic prednisone use - Electrolyte replacement per protocol - On detemir 30 units every 12 hours, Continue TPN. No insulin in TPN. Change sliding scale to medium dose. ac/hs. Holding home medications of metformin 1000 mg twice a day and glipizide 20 mill grams by mouth twice a day - D/c IV synthroid and change to regular dose of 50 mcg po daily. . TSH 0.555 on admission Resume prednisone 5 mg daily 01/11. Off Solu-Medrol Sacral decubitus ulcer Wound care following. Opened to air PROPH: - No pharmacological prophylaxis secondary to hemoptysis. Will discuss with GI when we can resume prophylaxis. Patient has LE skin breakdown. Hold SCDs. - Pantoprazole 40 iv twice a day Deconditioned -Will have ordered placed for physical therapist to work with patient every other day. Discharge Planning Palliative care is following. Makenna Schilling MD Jan 14, 2017 12:29
--- NOTE | 2017-01-14 13:17 | PD.ONC.PN ---
Subjective Subjective Remarks feels stronger PT ongoing eating-on mechanical soft no fevers Objective Data Date Time Temp Pulse Resp B/P (MAP) Pulse Ox O2 Delivery O2 Flow Rate FiO2 01/14/17 10:57 Room Air 01/14/17 08:18 97.4 81 17 111/56 (74) 99 01/14/17 04:00 97.6 86 18 109/53 (71) 97 01/14/17 04:00 Room Air 01/14/17 03:34 98 01/14/17 00:00 Room Air 01/14/17 00:00 97.9 94 20 92/50 (64) 95 01/13/17 20:39 93 01/13/17 20:00 97.8 90 20 103/51 (68) 97 01/13/17 20:00 Room Air 01/13/17 17:00 97.6 86 20 103/50 (67) 97 01/13/17 17:00 Room Air 01/13/17 16:00 82 01/13/17 15:10 83 01/13/17 15:08 97 Room Air 01/13/17 15:07 98.2 90 18 110/53 (72) 96 01/13/17 14:00 90 01/14/17 01/14/17 01/14/17 07:00 15:00 23:00 Intake Total 770 ml Output Total 1800 ml Balance -1030 ml Result Diagram: 01/14/17 0615 01/14/17 0615 Laboratory Results Laboratory Tests Test 01/14/17 06:15 White Blood Count 6.3 TH/MM3 Red Blood Count 3.01 MIL/MM3 Hemoglobin 8.7 GM/DL Hematocrit 26.2 % Mean Corpuscular Volume 87.2 FL Mean Corpuscular Hemoglobin 28.9 PG Mean Corpuscular Hemoglobin Concent 33.2 % Red Cell Distribution Width 19.4 % Platelet Count 205 TH/MM3 Mean Platelet Volume 8.9 FL Blood Urea Nitrogen 16 MG/DL Creatinine 0.51 MG/DL Random Glucose 51 MG/DL Calcium Level 7.9 MG/DL Sodium Level 135 MEQ/L Potassium Level 3.9 MEQ/L Chloride Level 95 MEQ/L Carbon Dioxide Level 32.1 MEQ/L Anion Gap 8 MEQ/L Estimat Glomerular Filtration Rate 166 ML/MIN Administered Medications Medications (Trade) Dose Ordered Sig/Geovanny Route PRN Reason Start Time Stop Time Status Last Admin Dose Admin Sodium Chloride (NS Flush) 2 ml UNSCH PRN IV FLUSH FLUSH AFTER USING IV ACCESS 11/30/16 02:45 12/24/16 09:59 Sodium Chloride (NS Flush) 2 ml BID IV FLUSH 11/30/16 09:00 01/14/17 08:21 Senna/Docusate Sodium (Rere-Colace) 1 tab BID PO 11/30/16 09:00 01/14/17 08:22 Acetaminophen (Tylenol) 325 mg Q4H PRN PO PAIN SCALE 1 TO 2 11/30/16 13:45 12/13/16 17:13 Ondansetron HCl (Zofran Inj) 4 mg Q4H PRN IV NAUSEA 11/30/16 13:45 12/24/16 22:41 Sodium Chloride (NS Flush) 5 ml Q21D IV FLUSH 11/30/16 18:00 12/21/16 17:19 Heparin Sodium (Porcine) (Heparin Central Flush) 500 units Q21D IV FLUSH 11/30/16 18:00 11/30/16 18:04 Heparin Sodium (Porcine) (Heparin Central Flush) 250 units UNSCH PRN IV FLUSH FLUSH AFTER USING IV ACCESS 11/30/16 18:00 01/12/17 05:26 Acetaminophen (Tylenol 650 Mg/ 20 ml Liq) 650 mg Q6H PRN PO FEVER 12/01/16 17:30 12/02/16 01:07 Polyethylene Glycol (Miralax) 17 gm DAILY PO 12/04/16 09:00 01/14/17 08:23 Multivitamins (Theragran) 1 tab DAILY PO 12/05/16 09:00 01/14/17 08:22 Rifampin (Rifampin) 300 mg Q12HR PO 12/06/16 09:15 01/15/17 23:00 Future hold 01/14/17 08:22 Lorazepam (Ativan Inj) 1 mg Q4H PRN IV PUSH ANXIETY AND/OR AGITATION 12/09/16 15:15 12/31/16 14:16 Atorvastatin Calcium (Lipitor) 40 mg HS PO 12/12/16 21:00 Future hold 01/13/17 21:03 Sodium Chloride (NS Flush) See Protocol DAILY IV FLUSH 12/13/16 09:00 01/14/17 08:21 Heparin Sodium (Porcine) (Heparin Central Flush) See Protocol DAILY IV FLUSH 12/13/16 09:00 01/14/17 10:04 Sodium Chloride (NS Flush) UNSCH PRN IV FLUSH SEE PROTOCOL TABLE 12/12/16 17:00 12/19/16 01:59 Lorazepam (Ativan) 0.5 mg DAILY PRN PO ANXIETY 12/18/16 15:45 Future Hold 12/19/16 08:29 Diltiazem HCl (Cardizem) 90 mg Q6H PO 12/18/16 23:00 Future Hold 12/25/16 12:14 Digoxin (Lanoxin) 0.25 mg DAILY PO 12/22/16 09:00 Future Hold 12/25/16 08:06 Sucralfate (Carafate Liq) 1 gm ACHS PO 12/22/16 11:00 01/14/17 11:14 Metoprolol Tartrate (Lopressor Inj) 5 mg Q1HR PRN IV PUSH RAPID HEART RATE 12/22/16 09:45 12/30/16 10:37 Pantoprazole Sodium (Protonix Inj) 40 mg Q12H IV PUSH 12/22/16 10:00 01/14/17 10:05 Metoprolol Tartrate (Lopressor) 25 mg Q6HR PO 12/22/16 13:00 01/14/17 12:47 Magnesium Oxide (Mag-Ox) 800 mg UNSCH PRN PO For Magnesium 1.2 - 1.6 mg/dL 12/25/16 21:00 12/27/16 06:46 Potassium Chloride 100 ml @ 50 mls/hr Q2H PRN IV For Potassium 3.3 - 3.5 mEq/L 12/25/16 21:00 01/08/17 04:35 Potassium Chloride 100 ml @ 25 mls/hr UNSCH PRN IV For Potassium 3.3 - 3.5 mEq/L 12/25/16 21:00 01/04/17 06:32 Sodium Phosphate 30 mmol/Sodium Chloride 250 ml @ 42 mls/hr UNSCH PRN IV For Phosphorus < 2.5 mg/dL 12/25/16 21:00 12/30/16 06:49 Albuterol/ Ipratropium (Duoneb Neb) 1 ampule Q2HR NEB PRN INH WHEEZING 12/25/16 21:00 01/02/17 19:29 Clopidogrel Bisulfate (Plavix) 75 mg DAILY PO 12/29/16 09:00 01/14/17 10:04 Aspirin (Ecotrin Ec) 162 mg DAILY PO 12/29/16 09:00 Future hold 01/14/17 08:22 Prednisone (Deltasone) 5 mg DAILY PO 12/29/16 09:00 Future hold 01/14/17 08:23 Chlorhexidine Gluconate (Peridex 0.12% Liq) 15 ml BID@08,20 MT 01/01/17 20:00 01/14/17 08:00 Artificial Tears (Tears Naturale Opth Soln) 1 drop Q8HR EACH EYE 01/04/17 14:00 01/14/17 12:56 Insulin Detemir (Levemir Inj) 30 units Q12HR SQ 01/06/17 21:00 01/14/17 08:40 Amiodarone HCl (Cordarone) 200 mg Q12HR PO 01/07/17 10:00 01/14/17 08:22 Cefazolin Sodium/ Dextrose 50 ml @ 100 mls/hr Q8H IV 01/07/17 17:00 01/15/17 16:59 01/14/17 08:21 Levofloxacin (Levaquin) 750 mg DAILY@1800 PO 01/07/17 18:00 01/14/17 17:59 01/13/17 17:04 Albuterol/ Ipratropium (Duoneb Neb) 1 ampule Q6HR NEB NEB 01/10/17 16:00 01/14/17 10:09 Levothyroxine Sodium (Synthroid) 50 mcg DAILY@0600 PO 01/11/17 06:00 01/14/17 05:24 Oxycodone/ Acetaminophen (Percocet 10-325 Mg) 1 tab Q4H PRN PO PAIN 1-10 01/10/17 14:15 01/14/17 10:01 Oxycodone HCl (Roxicodone) 5 mg Q4H PRN PO BREAKTHROUGH PAIN 01/10/17 14:15 01/12/17 23:06 Temazepam (Restoril) 15 mg HS PRN PO SLEEP 01/11/17 11:45 01/11/17 23:40 Insulin Aspart (NovoLOG SUPPLEMENTAL SCALE) 1 ACHS SLIDING SCALE SQ 01/11/17 16:00 01/14/17 12:55 Furosemide (Lasix Inj) 20 mg Q12HR IV PUSH 01/12/17 21:00 01/14/17 08:22 Objective Remarks GENERAL: nad SKIN: Warm and dry. HEAD: Normocephalic. EYES: No scleral icterus. No injection or drainage. NECK: Supple, trachea midline. No JVD or lymphadenopathy. LYMPHATIC: No adenopathy. CARDIOVASCULAR: Regular rate and rhythm without murmurs. RESPIRATORY: Breath sounds equal bilaterally. No accessory muscle use. GASTROINTESTINAL: Abdomen soft, non-tender, nondistended. EXTREMITIES: No cyanosis, or edema. Assessment/Plan Problem List: (1) Esophageal adenocarcinoma ICD Codes: C15.9 - Malignant neoplasm of esophagus, unspecified Status: Acute Plan: --EUS with esophageal stent placement on 12/25 --++hemoptysis --we plan to give weekly Erbitux and XRT outpatient. --patient had OP EGD with biopsy, pathology showed adenocarcinoma. --EGD/Colonoscopy, 11/20/16--showed long stricture in the mid esophagus and distal esophagus, multiple biopsies were performed Pathology revealed invasive adenocarcinoma- distal esophagus --XRT simulation done 12/19. (2) SCC (squamous cell carcinoma) ICD Codes: C44.92 - Squamous cell carcinoma of skin, unspecified Status: Acute Plan: --has a head and neck, lung malignancy which was locally advanced. --received definitive treatment with surgery. Post surgery he had positive margins and some poor risk features and he was about to get concurrent chemotherapy and radiation and adjuvantly to achieve local control of the disease --PET scan to stage his disease prior to treatment showed an esophageal mass (3) Normocytic anemia ICD Codes: D64.9 - Anemia, unspecified Status: Acute Plan: --hgb stable --transfuse packed red blood cells if his hemoglobin drops below 8.5 --s/p iron infusion (4) Afib ICD Codes: I48.91 - Unspecified atrial fibrillation Status: Acute Plan: --cardiology following. --s/p chest tube placement --on Plavix --on ASA (5) Sepsis ICD Codes: A41.9 - Sepsis, unspecified organism Status: Resolved Plan: --BC 8.18: pending BC, 7.24 no growth BC, 12/07 no growth --BC, 12/05 +, S. Aureus --had removal of port, + S. aureus --on Cefepime (6) NSTEMI (non-ST elevated myocardial infarction) ICD Codes: I21.4 - Non-ST elevation (NSTEMI) myocardial infarction Status: Chronic Plan: --had elevated troponin and ST-segment changes consistent with acute [place]. 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 Also with a new diagnosis of early stage gastric cancer Plan Attending Statement The exam, history, and the medical decision-making described in the above note were completed with the assistance of the mid-level provider. I reviewed and agree with the findings presented. I attest that I had a [id number] encounter with the patient on the same day, and personally performed and documented my assessment and findings in the medical record. B Problem Qualifiers (1) Afib: (2) Sepsis: Brant Bell MD Jan 14, 2017 13:17
[2017-01-14] MEDS: RESP: ALBUTEROL 2.5 MG/IPRATROPIUM 0.5 MG NEB (PRN) INH ×2 (16:08→20:18)
--- NOTE | 2017-01-14 17:39 | HHI.PR ---
Subjective Subjective Notes Patient and nurse report he is taking in some nourishment. Wants to hold off on feeding tube for now. Objective Vitals/I&O Vital Signs Date Time Temp Pulse Resp B/P (MAP) Pulse Ox O2 Delivery O2 Flow Rate FiO2 01/14/17 12:00 98.0 91 20 105/66 (79) 98 01/14/17 10:57 Room Air 01/13/17 09:23 1.00 Labs Laboratory Tests Test 01/14/17 06:15 White Blood Count 6.3 Red Blood Count 3.01 Hemoglobin 8.7 Hematocrit 26.2 Mean Corpuscular Volume 87.2 Mean Corpuscular Hemoglobin 28.9 Mean Corpuscular Hemoglobin Concent 33.2 Red Cell Distribution Width 19.4 Platelet Count 205 Mean Platelet Volume 8.9 Blood Urea Nitrogen 16 Creatinine 0.51 Random Glucose 51 Calcium Level 7.9 Sodium Level 135 Potassium Level 3.9 Chloride Level 95 Carbon Dioxide Level 32.1 Anion Gap 8 Estimat Glomerular Filtration Rate 166 Date/Time Source Procedure Growth Status 01/02/17 06:00 Blood Peripheral Aerobic Blood Culture - Final NO GROWTH IN 5 DAYS Complete 01/02/17 06:00 Blood Peripheral Anaerobic Blood Culture - Final NO GROWTH IN 5 DAYS Complete 01/06/17 12:30 Fluid Pleural Fluid Fungal Smear - Final NO FUNGAL ELEMENTS SEEN. Resulted 01/06/17 12:30 Fluid Pleural Fluid Fungal Culture - Preliminary NO GROWTH IN 1 WEEK Resulted 12/24/16 12:42 Stool Stool Stool Occult Blood (DAINA) - Final HEMOCCULT NEGATIVE Complete 01/02/17 20:13 Sputum Endotracheal Gram Stain - Final Complete 01/02/17 20:13 Sputum Culture - Final Pseudomonas Aeruginosa Complete 12/01/16 17:00 Urine Catheterized Urine Urine Culture - Final Staphylococcus Aureus Complete 12/02/16 20:00 Catheter Tip Other Wound Culture - Final Staphylococcus Aureus Complete A/P Assessment and Plan 61 yo male with esophageal cancer; attempting to eat Will standby; calorie count to assess if he is getting enough to eat. No surgery planned for tomorrow. Bebeto Rich MD Jan 14, 2017 17:39
--- NOTE | 2017-01-14 19:28 | HHI.PR ---
Subjective Remarks 61 YOWM with COPD,DM,AF Had Pericardial effusion and Pericardiocentesis Has Right chest tube Mild SOB No Fever Up in chair. C/O sore bottom Objective Vital Signs Vital Signs Date Time Temp Pulse Resp B/P (MAP) Pulse Ox O2 Delivery O2 Flow Rate FiO2 01/14/17 16:00 97.5 98 20 124/55 (78) 96 01/14/17 12:00 98.0 91 20 105/66 (79) 98 01/14/17 10:57 Room Air 01/14/17 08:18 97.4 81 17 111/56 (74) 99 01/14/17 04:00 97.6 86 18 109/53 (71) 97 01/14/17 04:00 Room Air 01/14/17 03:34 98 01/14/17 00:00 Room Air 01/14/17 00:00 97.9 94 20 92/50 (64) 95 01/13/17 20:39 93 01/13/17 20:00 97.8 90 20 103/51 (68) 97 01/13/17 20:00 Room Air I/O 01/13/17 01/13/17 01/13/17 01/14/17 01/14/17 01/14/17 07:00 15:00 23:00 07:00 15:00 23:00 Intake Total 480 ml 50 ml 1080 ml 770 ml 760 ml Output Total 2170 ml 750 ml 1800 ml 500 ml Balance -1690 ml 50 ml 330 ml -1030 ml 260 ml Intake Oral 480 ml 1080 ml 720 ml 760 ml IV Total 50 ml 50 ml Output Urine Total 1500 ml 350 ml 1600 ml 500 ml Chest Tube Drainage Total 670 ml 400 ml 200 ml # Voids 1 2 # Bowel Movements 0 1 1 Result Diagram: 01/14/1761401/14/17 0615 Objective Remarks GENERAL: WBWN WM,NAD SKIN: Warm and dry. HEAD: Normocephalic. EYES: No scleral icterus. No injection or drainage. NECK: Supple, trachea midline. No JVD or lymphadenopathy. CARDIOVASCULAR: Regular rate and rhythm without murmurs, gallops, or rubs. RESPIRATORY: Breath sounds equal bilaterally. No accessory muscle use. Right chest tube draining GASTROINTESTINAL: Abdomen soft, non-tender, nondistended. MUSCULOSKELETAL: No cyanosis, or edema. BACK: Nontender without obvious deformity. No CVA tenderness. A/P Assessment and Plan Right Pl effusion, s/p Chest tube placement S/P Pericardiocentesis AF CAD HTN PLAN: Cont Chest tube suction Supplement 02 Aerosol nebs OOB in Chair Chace Luna MD Jan 14, 2017 19:28
[2017-01-14] MEDS: ATORVASTATIN 40 MG TAB PO SCH (21:47)
[2017-01-14] MEDS: TEMAZEPAM 15 MG CAP PO PRN (21:48)
--- NOTE | 2017-01-14 22:35 | PD.ONC.PN ---
Subjective Subjective Remarks says he has some improvement in strength got out of the bed into the chair earlier today trying to eat by mouth chest tube in place Objective Data Date Time Temp Pulse Resp B/P (MAP) Pulse Ox O2 Delivery O2 Flow Rate FiO2 01/14/17 20:20 98 01/14/17 19:37 95 01/14/17 16:00 97.5 98 20 124/55 (78) 96 01/14/17 12:00 98.0 91 20 105/66 (79) 98 01/14/17 10:57 Room Air 01/14/17 08:18 97.4 81 17 111/56 (74) 99 01/14/17 04:00 97.6 86 18 109/53 (71) 97 01/14/17 04:00 Room Air 01/14/17 03:34 98 01/14/17 00:00 Room Air 01/14/17 00:00 97.9 94 20 92/50 (64) 95 01/14/17 01/14/17 01/14/17 07:00 15:00 23:00 Intake Total 770 ml 760 ml Output Total 1800 ml 500 ml Balance -1030 ml 260 ml Result Diagram: 01/14/1715 01/14/17 0615 Laboratory Results Laboratory Tests Test 01/14/17 06:15 White Blood Count 6.3 TH/MM3 Red Blood Count 3.01 MIL/MM3 Hemoglobin 8.7 GM/DL Hematocrit 26.2 % Mean Corpuscular Volume 87.2 FL Mean Corpuscular Hemoglobin 28.9 PG Mean Corpuscular Hemoglobin Concent 33.2 % Red Cell Distribution Width 19.4 % Platelet Count 205 TH/MM3 Mean Platelet Volume 8.9 FL Blood Urea Nitrogen 16 MG/DL Creatinine 0.51 MG/DL Random Glucose 51 MG/DL Calcium Level 7.9 MG/DL Sodium Level 135 MEQ/L Potassium Level 3.9 MEQ/L Chloride Level 95 MEQ/L Carbon Dioxide Level 32.1 MEQ/L Anion Gap 8 MEQ/L Estimat Glomerular Filtration Rate 166 ML/MIN Administered Medications Medications (Trade) Dose Ordered Sig/Geovanny Route PRN Reason Start Time Stop Time Status Last Admin Dose Admin Sodium Chloride (NS Flush) 2 ml UNSCH PRN IV FLUSH FLUSH AFTER USING IV ACCESS 11/30/16 02:45 12/24/16 09:59 Sodium Chloride (NS Flush) 2 ml BID IV FLUSH 11/30/16 09:00 01/14/17 21:49 Senna/Docusate Sodium (Rere-Colace) 1 tab BID PO 11/30/16 09:00 01/14/17 21:47 Acetaminophen (Tylenol) 325 mg Q4H PRN PO PAIN SCALE 1 TO 2 11/30/16 13:45 12/13/16 17:13 Ondansetron HCl (Zofran Inj) 4 mg Q4H PRN IV NAUSEA 11/30/16 13:45 12/24/16 22:41 Sodium Chloride (NS Flush) 5 ml Q21D IV FLUSH 11/30/16 18:00 12/21/16 17:19 Heparin Sodium (Porcine) (Heparin Central Flush) 500 units Q21D IV FLUSH 11/30/16 18:00 11/30/16 18:04 Heparin Sodium (Porcine) (Heparin Central Flush) 250 units UNSCH PRN IV FLUSH FLUSH AFTER USING IV ACCESS 11/30/16 18:00 01/12/17 05:26 Acetaminophen (Tylenol 650 Mg/ 20 ml Liq) 650 mg Q6H PRN PO FEVER 12/01/16 17:30 12/02/16 01:07 Polyethylene Glycol (Miralax) 17 gm DAILY PO 12/04/16 09:00 01/14/17 08:23 Multivitamins (Theragran) 1 tab DAILY PO 12/05/16 09:00 01/14/17 08:22 Rifampin (Rifampin) 300 mg Q12HR PO 12/06/16 09:15 01/15/17 23:00 Future hold 01/14/17 21:47 Lorazepam (Ativan Inj) 1 mg Q4H PRN IV PUSH ANXIETY AND/OR AGITATION 12/09/16 15:15 12/31/16 14:16 Atorvastatin Calcium (Lipitor) 40 mg HS PO 12/12/16 21:00 Future hold 01/14/17 21:47 Sodium Chloride (NS Flush) See Protocol DAILY IV FLUSH 12/13/16 09:00 01/14/17 08:21 Heparin Sodium (Porcine) (Heparin Central Flush) See Protocol DAILY IV FLUSH 12/13/16 09:00 01/14/17 10:04 Sodium Chloride (NS Flush) UNSCH PRN IV FLUSH SEE PROTOCOL TABLE 12/12/16 17:00 12/19/16 01:59 Lorazepam (Ativan) 0.5 mg DAILY PRN PO ANXIETY 12/18/16 15:45 Future Hold 12/19/16 08:29 Diltiazem HCl (Cardizem) 90 mg Q6H PO 12/18/16 23:00 Future Hold 12/25/16 12:14 Digoxin (Lanoxin) 0.25 mg DAILY PO 12/22/16 09:00 Future Hold 12/25/16 08:06 Sucralfate (Carafate Liq) 1 gm ACHS PO 12/22/16 11:00 01/14/17 21:48 Metoprolol Tartrate (Lopressor Inj) 5 mg Q1HR PRN IV PUSH RAPID HEART RATE 12/22/16 09:45 12/30/16 10:37 Pantoprazole Sodium (Protonix Inj) 40 mg Q12H IV PUSH 12/22/16 10:00 01/14/17 21:48 Metoprolol Tartrate (Lopressor) 25 mg Q6HR PO 12/22/16 13:00 01/14/17 17:05 Albuterol/ Ipratropium (Duoneb Neb) 1 ampule Q2HR NEB PRN INH WHEEZING 12/25/16 21:00 01/14/17 20:18 Clopidogrel Bisulfate (Plavix) 75 mg DAILY PO 12/29/16 09:00 01/14/17 10:04 Aspirin (Ecotrin Ec) 162 mg DAILY PO 12/29/16 09:00 Future hold 01/14/17 08:22 Prednisone (Deltasone) 5 mg DAILY PO 12/29/16 09:00 Future hold 01/14/17 08:23 Chlorhexidine Gluconate (Peridex 0.12% Liq) 15 ml BID@08,20 MT 01/01/17 20:00 01/14/17 20:00 Artificial Tears (Tears Naturale Opth Soln) 1 drop Q8HR EACH EYE 01/04/17 14:00 01/14/17 12:56 Insulin Detemir (Levemir Inj) 30 units Q12HR SQ 01/06/17 21:00 01/14/17 21:00 Amiodarone HCl (Cordarone) 200 mg Q12HR PO 01/07/17 10:00 01/14/17 21:48 Cefazolin Sodium/ Dextrose 50 ml @ 100 mls/hr Q8H IV 01/07/17 17:00 01/15/17 16:59 01/14/17 17:05 Levothyroxine Sodium (Synthroid) 50 mcg DAILY@0600 PO 01/11/17 06:00 01/14/17 05:24 Oxycodone/ Acetaminophen (Percocet 10-325 Mg) 1 tab Q4H PRN PO PAIN 1-10 01/10/17 14:15 01/14/17 21:49 Oxycodone HCl (Roxicodone) 5 mg Q4H PRN PO BREAKTHROUGH PAIN 01/10/17 14:15 01/12/17 23:06 Temazepam (Restoril) 15 mg HS PRN PO SLEEP 01/11/17 11:45 01/14/17 21:48 Insulin Aspart (NovoLOG SUPPLEMENTAL SCALE) 1 ACHS SLIDING SCALE SQ 01/11/17 16:00 01/14/17 21:00 Furosemide (Lasix Inj) 20 mg Q12HR IV PUSH 01/12/17 21:00 01/14/17 21:00 Objective Remarks GENERAL: nad SKIN: Warm and dry CARDIOVASCULAR: Regular rate and rhythm without murmurs. RESPIRATORY: Breath sounds equal bilaterally. No accessory muscle use. GASTROINTESTINAL: Abdomen soft, non-tender, nondistended. EXTREMITIES: No cyanosis, or edema. Assessment/Plan Problem List: (1) Esophageal adenocarcinoma ICD Codes: C15.9 - Malignant neoplasm of esophagus, unspecified Status: Acute Plan: --EUS with esophageal stent placement on 12/25 --++hemoptysis --we plan to give weekly Erbitux and XRT outpatient. --patient had OP EGD with biopsy, pathology showed adenocarcinoma. --EGD/Colonoscopy, 11/20/16--showed long stricture in the mid esophagus and distal esophagus, multiple biopsies were performed Pathology revealed invasive adenocarcinoma- distal esophagus --XRT simulation done 12/19. (2) SCC (squamous cell carcinoma) ICD Codes: C44.92 - Squamous cell carcinoma of skin, unspecified Status: Acute Plan: --has a head and neck, lung malignancy which was locally advanced. --received definitive treatment with surgery. Post surgery he had positive margins and some poor risk features and he was about to get concurrent chemotherapy and radiation and adjuvantly to achieve local control of the disease --PET scan to stage his disease prior to treatment showed an esophageal mass (3) Normocytic anemia ICD Codes: D64.9 - Anemia, unspecified Status: Acute Plan: --hgb stable --transfuse packed red blood cells if his hemoglobin drops below 8.5 --s/p iron infusion (4) Afib ICD Codes: I48.91 - Unspecified atrial fibrillation Status: Acute Plan: --cardiology following. --s/p chest tube placement --on Plavix --on ASA (5) Sepsis ICD Codes: A41.9 - Sepsis, unspecified organism Status: Resolved Plan: --BC 8.18: pending BC, 7. no growth BC, 12/07 no growth --BC, 12/05 +, S. Aureus --had removal of port, + S. aureus --on Cefepime (6) NSTEMI (non-ST elevated myocardial infarction) ICD Codes: I21.4 - Non-ST elevation (NSTEMI) myocardial infarction Status: Acute Plan: --had elevated troponin and ST-segment changes consistent with acute DE. 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 Also with a new diagnosis of early stage gastric cancer Plan - supportive care - PT/nutrition - Anemia- Hb slightly lower--continue to monitor - Gastric cancer treatment once more stable Problem Qualifiers (1) Afib: (2) Sepsis: Brant Bell MD Jan 14, 2017 22:35
[2017-01-15] VITALS (9 sets, daily range): BP systolic 109–139; BP diastolic 53–62; PULSE 83–91; RESP 18–20; TEMP 97.6–97.9; O2SAT 96–99
[2017-01-15] MEDS: ceFAZolin 2 GM PREMIX 50 ML IV SCH ×2 (01:13→09:21)
[2017-01-15] MEDS: METOPROLOL TARTRATE 25 MG TAB PO SCH ×4 (01:13→17:27)
[2017-01-15] MEDS: oxyCODONE/ACETAMINOPHEN 10 MG/325 MG TAB PO PRN ×5 (01:50→21:07)
[2017-01-15] MEDS: SUCRALFATE 1 GM/10 ML CUP PO SCH ×4 (06:57→21:04)
[2017-01-15] MEDS: LEVOTHYROXINE SODIUM 50 MCG TAB PO SCH (06:57)
[2017-01-15] MEDS: INSULIN ASPART SUPPLEMENTAL SCALE SQ SCH ×4 (07:00→21:17)
[2017-01-15] MEDS: ARTIFICIAL TEARS OPTH SOLN 15 ML BTL EACH EYE SCH ×3 (07:02→21:05)
[2017-01-15] MEDS: CHLORHEXIDINE 0.12% (ORAL KIT) 15 ML CUP MT SCH ×2 (08:00→20:00)
[2017-01-15] MEDS: DOCUSATE SODIUM 50 MG/SENNA 8.6 MG TAB PO SCH ×2 (09:19→21:05)
[2017-01-15] MEDS: ASPIRIN EC 81 MG TABEC PO SCH (09:19)
[2017-01-15] MEDS: RIFAMPIN 150 MG CAP PO SCH ×2 (09:19→21:05)
[2017-01-15] MEDS: SODIUM CHLORIDE 0.9% FLUSH 10 ML FLUSH IV FLUSH SCH ×3 (09:19→21:05)
[2017-01-15] MEDS: POLYETHYLENE GLYCOL 17 GM PKG PO SCH (09:19)
[2017-01-15] MEDS: predniSONE 5 MG TAB PO SCH (09:19)
[2017-01-15] MEDS: CLOPIDOGREL 75 MG TAB PO SCH (09:19)
[2017-01-15] MEDS: FUROSEMIDE 20 MG/2 ML VIAL IV PUSH SCH ×2 (09:20→21:04)
[2017-01-15] MEDS: PANTOPRAZOLE SODIUM 40 MG VIAL IV PUSH SCH ×2 (09:20→21:05)
[2017-01-15] MEDS: AMIODARONE 200 MG TAB PO SCH ×2 (09:20→21:04)
[2017-01-15] MEDS: MULTIVITAMIN TAB PO SCH (09:20)
[2017-01-15] MEDS: INSULIN DETEMIR 100 UNITS/ML VIAL SQ SCH ×2 (09:38→21:18)
--- NOTE | 2017-01-15 12:43 | HHI.PR ---
Subjective Remarks Follow-up for chest tube management Patient very frustrated and wants to go home. Despite wanting to go home he stated that he does not want to . He stated that he is limited on what he can do to to the chest tubes. Otherwise he has no complaints. Deny any shortness of breathing or cough. Afebrile. He declined having a PEG placed. Objective Vitals Vital Signs Date Time Temp Pulse Resp B/P (MAP) Pulse Ox O2 Delivery O2 Flow Rate FiO2 01/15/17 12:00 97.6 83 18 127/60 (82) 97 01/15/17 09:10 Room Air 01/15/17 08:00 97.8 91 20 139/60 (86) 96 01/15/17 04:00 97.9 86 20 109/53 (71) 98 01/15/17 00:00 97.7 90 20 131/62 (85) 97 01/14/17 20:20 98 01/14/17 20:00 87 01/14/17 20:00 97.5 88 20 125/58 (80) 97 01/14/17 20:00 97 Room Air 01/14/17 19:37 95 01/14/17 16:00 97.5 98 20 124/55 (78) 96 I/O 01/14/17 01/14/17 01/14/17 01/15/17 01/15/17 01/15/17 06:59 14:59 22:59 06:59 14:59 22:59 Intake Total 770 ml 760 ml 530 ml Output Total 1800 ml 500 ml 710 ml Balance -1030 ml 260 ml -180 ml Intake Oral 720 ml 760 ml 480 ml IV Total 50 ml 50 ml Output Urine Total 1600 ml 500 ml 700 ml Chest Tube Drainage Total 200 ml 10 ml # Voids 2 2 # Bowel Movements 1 1 Result Diagram: 01/14/1761401/14/17614 Objective Remarks GENERAL: Patient sitting up in bed in no acute distress. CARDIOVASCULAR: irregular heart rhythm. 3/6 murmur. RESPIRATORY: Clear to auscultation. Breath sounds equal bilaterally. No wheezes right chest tube in place. GASTROINTESTINAL: Abdomen soft, non-tender, nondistended. MUSCULOSKELETAL: sitting up on side of bed, able to move his upper extremities. +1-2 lower extremity edema. SKIN: gluteal skin breakage Procedures Right axillary art line 7/18/17 Left subclavian central venous line 12/02/16 (Dr. Delarosa) intubation 12/02/16 and 01/01/17 PCI with bare metal stent to LCx by Dr. Krause on 11/30/16 port removal 12/02/16 Dr. Rich. EUS with esophageal stent placement, food bolus removal 12/25/16 Dr. Tejeda Right thoracentesis 12/30/16 (Dr. Harding) Pericardiocentesis and pericardial drain 01/01/17 (Dr. Bueno) Placement of Left #10 Jamaican pigtail catheter 01/03. Was dislodged 01/09. Placement of right #10 Jamaican pigtail catheter 01/06 Medications and IVs Current Medications Sodium Chloride 1,000 ml @ 999 mls/hr BOLUS ONCE IV Last administered on 11/30 01:52; Start 11/30/16 at 00:00; Stop 11/30/16 at 01:00; Status DC Morphine Sulfate (Morphine Inj) 4 mg ONCE ONCE IV PUSH Last administered on 01:53; Start 11/30/16 at 01:00; Stop 11/30/16 at 01:01; Status DC Potassium Bicarb/ Potassium Chloride (K-Lyte Cl Eff) 75 meq ONCE ONCE PO Last administered on 11/30/16 01:53; Start 11/30/16 at 01:30; Stop 11/30/16 at 01:31; Status DC Iohexol (Omnipaque 350 Inj) 75 ml STK-MED ONCE IV ; Start 11/30/16 at 01:37; Stop 11/30/16 at 01:38; Status DC Calcium Gluconate (Calcium Gluconate Inj) 1 gm ONCE ONCE IV PUSH Last administered on 11/30/16 02:58; Start 11/30/16 at 02:45; Stop 11/30/16 at 02:46 ; Status DC Sodium Chloride 1,000 ml @ 100 mls/hr Q10H IV Last administered on 11/30/16 02:58; Start 11/30/16 at 02:33; Stop 11/30/16 at 13:54; Status DC Sodium Chloride (NS Flush) 2 ml UNSCH PRN IV FLUSH FLUSH AFTER USING IV ACCESS Last administered on 12/24/16 09:59; Start 11/30/16 at 02:45 Sodium Chloride (NS Flush) 2 ml BID IV FLUSH Last administered on 01/15/17 09: 21; Start 11/30/16 at 09:00 Ondansetron HCl (Zofran Inj) 4 mg Q6H PRN IVP NAUSEA OR VOMITING; Start at 02:45; Stop 11/30/16 at 13:51; Status DC Acetaminophen (Tylenol) 650 mg Q6H PRN PO FEVER/PAIN SCALE 1 TO 2; Start at 02:45; Stop 11/30/16 at 13:54; Status DC Hydromorphone HCl (Dilaudid Pf Inj) 1 mg Q3H PRN IV Pain 6-10 Last administered on 12/04/16 06:52; Start 11/30/16 at 02:45; Stop 12/04/16 at 09:25 ; Status DC Oxycodone HCl (Roxicodone) 5 mg Q4H PRN PO PAIN SCALE 3 TO 5 Last administered on 01/10/17 02:18; Start 11/30/16 at 02:45; Stop 01/10/17 at 13:19; Status DC Senna/Docusate Sodium (Rere-Colace) 1 tab BID PO Last administered on 09:19; Start 11/30/16 at 09:00 Magnesium Hydroxide (Milk Of Magnesia Liq) 30 ml Q12H PRN PO MILD - MODERATE CONSTIPATION; Start 11/30/16 at 02:45 Sennosides (Senokot) 17.2 mg Q12H PRN PO MODERATE - SEVERE CONSTIPATION; Start 11/30/16 at 02:45 Bisacodyl (Dulcolax Supp) 10 mg DAILY PRN RECTAL SEVERE CONSITIPATION; Start at 02:45 Lactulose (Lactulose Liq) 30 ml DAILY PRN PO SEVERE CONSITIPATION; Start at 02:45 Pantoprazole Sodium (Protonix Inj) 40 mg Q12H IV PUSH Last administered on 12/12 21:10; Start 11/30/16 at 09:00; Stop 12/13/16 at 08:25; Status DC Miscellaneous Information Patient in critical care unit? Ass... Q361D .XX ; Start 11/30/16 at 05:15 Chlorhexidine Gluconate (Chlorhexidine 2% Cloth) 3 pack DAILY@04 TOPICAL Last administered on 12/05/16 04:00; Start 12/01/16 at 04:00; Stop 12/05/16 at 04:01 ; Status DC Chlorhexidine Gluconate (Chlorhexidine 2% Cloth) 3 pack UNSCH PRN TOPICAL HYGIENIC CARE; Start 11/30/16 at 05:15; Stop 12/05/16 at 05:12; Status DC Aspirin (Aspirin Chew) 81 mg ONCE ONCE PO Last administered on 11/30/16 12:19 ; Start 11/30/16 at 12:00; Stop 11/30/16 at 12:01; Status DC Heparin Sodium/ Dextrose 250 ml @ 0 mls/hr TITRATE IV Last administered on 11/30 12:21; Start 11/30/16 at 12:15; Stop 11/30/16 at 13:49; Status DC Heparin Sodium (Porcine) (Heparin Inj) 5,000 units UNSCH PRN IV aPTT less than 25; Start 11/30/16 at 12:15; Stop 11/30/16 at 13:49; Status DC Heparin Sodium (Porcine) (Heparin Inj) 2,500 units UNSCH PRN IV aPTT 25 to 39; Start 11/30/16 at 12:15; Stop 11/30/16 at 13:49; Status DC Heparin Sodium (Porcine) (Heparin Inj) 4,000 units ONCE ONCE IV Last administered on 11/30/16 12:19; Start 11/30/16 at 12:15; Stop 11/30/16 at 12:16 ; Status DC Heparin Sodium/ Sodium Chloride 500 ml @ As Directed STK-MED ONCE .ROUTE Last administered on 11/30/16 12:36; Start 11/30/16 at 12:36; Stop 11/30/16 at 12:37 ; Status DC Midazolam HCl (Versed Inj) 2 mg STK-MED ONCE .ROUTE Last administered on 12:36; Start 11/30/16 at 12:36; Stop 11/30/16 at 12:37; Status DC Fentanyl Citrate (fentaNYL INJ) 100 mcg STK-MED ONCE .ROUTE Last administered on 11/30/16 12:36; Start 11/30/16 at 12:36; Stop 11/30/16 at 12:37; Status DC Dextrose (D50w (Syr) Inj) 50 ml STK-MED ONCE .ROUTE Last administered on 12:53; Start 11/30/16 at 12:53; Stop 11/30/16 at 12:54; Status DC Phenylephrine HCl (Neosynephrine Inj) 40 mg STK-MED ONCE .ROUTE Last administered on 11/30/16 13:04; Start 11/30/16 at 13:04; Stop 11/30/16 at 13:05 ; Status DC Clopidogrel Bisulfate (Plavix) 600 mg STK-MED ONCE .ROUTE ; Start 11/30/16 at 13 :25; Stop 11/30/16 at 13:26; Status DC Sodium Chloride 1,000 ml @ 125 mls/hr Q8H IV Last administered on 11/30/16 21 :51; Start 11/30/16 at 13:42; Stop 11/30/16 at 17:41; Status DC Acetaminophen (Tylenol) 325 mg Q4H PRN PO PAIN SCALE 1 TO 2 Last administered on 12/13/16 17:13; Start 11/30/16 at 13:45 Aspirin (Aspirin Chew) 81 mg DAILY PO Last administered on 12/21/16 08:29; Start 11/30/16 at 13:45; Stop 12/22/16 at 09:42; Status DC Clopidogrel Bisulfate (Plavix) 600 mg ONCE ONCE PO ; Start 11/30/16 at 13:45; Stop 11/30/16 at 13:47; Status DC Clopidogrel Bisulfate (Plavix) 75 mg DAILY PO Last administered on 12/25/16 08 :06; Start 12/01/16 at 09:00; Stop 01/10/17 at 12:59; Status DC Miscellaneous Information 1 ONCE ONCE XX ; Start 11/30/16 at 13:45; Stop at 13:49; Status DC Atropine Sulfate (Atropine Inj) 0.5 mg UNSCH PRN IV VAGAL REPONSE; Start at 13:45 Ondansetron HCl (Zofran Inj) 4 mg Q4H PRN IV NAUSEA Last administered on 22:41; Start 11/30/16 at 13:45 Metoprolol Tartrate (Lopressor) 12.5 mg BID PO Last administered on 12/01/16 09:51; Start 11/30/16 at 21:00; Stop 12/14/16 at 16:12; Status DC Atorvastatin Calcium (Lipitor) 10 mg HS PO Last administered on 12/02/16 21:22 ; Start 11/30/16 at 21:00; Stop 12/12/16 at 09:02; Status DC Miscellaneous Information HOLD METFORMIN FOR... Q24H .XX ; Start 11/30/16 at 15: 00; Stop 12/02/16 at 14:59; Status DC Potassium Chloride 100 ml @ 50 mls/hr Q2H IV Last administered on 11/30/16 19 :24; Start 11/30/16 at 18:00; Stop 11/30/16 at 21:59; Status DC Sodium Chloride (NS Flush) 5 ml Q21D IV FLUSH Last administered on 12/21/16 17: 19; Start 11/30/16 at 18:00 Heparin Sodium (Porcine) (Heparin Central Flush) 500 units Q21D IV FLUSH Last administered on 11/30/16 18:04; Start 11/30/16 at 18:00 Sodium Chloride (NS Flush) 5 ml UNSCH PRN IV FLUSH SEE LABEL COMMENTS; Start at 18:00 Heparin Sodium (Porcine) (Heparin Central Flush) 250 units UNSCH PRN IV FLUSH FLUSH AFTER USING IV ACCESS Last administered on 01/12/17 05:26; Start at 18:00 Lorazepam (Ativan Inj) 0.5 mg ONCE ONCE IV PUSH Last administered on 06:37; Start 12/01/16 at 06:30; Stop 12/01/16 at 06:31; Status DC Lorazepam (Ativan Inj) 0.5 mg ONCE ONCE IV Last administered on 12/01/16 07: 43; Start 12/01/16 at 07:45; Stop 12/01/16 at 07:46; Status DC Potassium Chloride 30 meq/ Sodium Chloride 115 ml @ 38.333 mls/ hr Q3H IV- CENTRAL Last administered on 12/01/16 12:43; Start 12/01/16 at 08:30; Stop at 14:29; Status DC Vancomycin HCl 2100 mg/Sodium Chloride 521 ml @ 250 mls/hr ONCE ONCE IV Last administered on 12/01/16 12:43; Start 12/01/16 at 12:00; Stop 12/01/16 at 14:06 ; Status DC Pharmacy Profile Note 0 ml @ 0 mls/hr UNSCH OTHER ; Start 12/01/16 at 10:30; Status UNV Pharmacy Profile Note 0 ml @ 0 mls/hr UNSCH OTHER ; Start 12/01/16 at 11:00; Stop 12/01/16 at 13:07; Status DC Vancomycin HCl 1250 mg/Sodium Chloride 262.5 ml @ 262.5 mls/ hr Q24H IV ; Start 12/02/16 at 09:00; Stop 12/02/16 at 09:00; Status DC Ceftriaxone Sodium 2000 mg/ Sodium Chloride 100 ml @ 200 mls/hr Q24H IV ; Start 12/01/16 at 14:00; Stop 12/01/16 at 16:10; Status DC Thiamine HCl 100 mg/Sodium Chloride 101 ml @ 101 mls/hr DAILY IV Last administered on 12/01/16 14:09; Start 12/01/16 at 13:00; Stop 12/02/16 at 08:28 ; Status DC Flumazenil (Romazicon Inj) 0.2 mg Q1M PRN IV PUSH SEE LABEL COMMENTS; Start at 13:00 Lorazepam (Ativan) 1 mg Q4H PRN PO CIWA 8 - 10; Start 12/01/16 at 13:00; Stop 12/04/16 at 09:29; Status DC Lorazepam (Ativan Inj) 1 mg Q4H PRN IV PUSH CIWA 8 - 10 Last administered on 21:52; Start 12/01/16 at 13:00; Stop 12/04/16 at 09:29; Status DC Lorazepam (Ativan) 2 mg Q2H PRN PO CIWA 11-14; Start 12/01/16 at 13:00; Stop at 09:29; Status DC Lorazepam (Ativan Inj) 2 mg Q2H PRN IV PUSH CIWA 11-14 Last administered on t 04:37; Start 12/01/16 at 13:00; Stop 12/04/16 at 09:29; Status DC Lorazepam (Ativan Inj) 2 mg Q1H PRN IV PUSH CIWA 15-20; Start 12/01/16 at 13:00 ; Stop 12/04/16 at 09:29; Status DC Lorazepam (Ativan Inj) 2 mg Q15M PRN IV PUSH CIWA > 20; Start 12/01/16 at 13:00 ; Stop 12/04/16 at 09:29; Status DC Sodium Chloride 1,000 ml @ 999 mls/hr BOLUS ONCE IV Last administered on 12/01 14:09; Start 12/01/16 at 13:00; Stop 12/01/16 at 14:06; Status DC Sodium Chloride 1,000 ml @ 999 mls/hr BOLUS ONCE IV Last administered on 12/01 14:09; Start 12/01/16 at 13:00; Stop 12/01/16 at 14:06; Status DC Morphine Sulfate (Morphine Inj) 8 mg STK-MED ONCE .ROUTE Last administered on 14:06; Start 12/01/16 at 14:04; Stop 12/01/16 at 14:05; Status DC Dexmedetomidine HCl 200 mcg/ Sodium Chloride 52 ml @ 0 mls/hr TITRATE IV ; Start 12/01/16 at 14:30; Stop 12/03/16 at 07:50; Status DC Albuterol/ Ipratropium (Duoneb Neb) 1 ampule Q6HR NEB NEB Last administered on 12/05/16 15:58; Start 12/01/16 at 16:00; Stop 12/05/16 at 16:00; Status DC Albuterol/ Ipratropium (Duoneb Neb) 1 ampule Q2HR NEB PRN NEB SHORTNESS OF BREATH Last administered on 12/28/16 13:14; Start 12/01/16 at 14:30; Stop 12/29 at 15:42; Status DC Cefazolin Sodium/ Dextrose 50 ml @ 100 mls/hr Q8H IV Last administered on 12/03 08:27; Start 12/01/16 at 18:00; Stop 12/06/16 at 09:11; Status DC Pharmacy Profile Note 0 ml @ 0 mls/hr UNSCH OTHER ; Start 12/01/16 at 16:15; Stop 12/03/16 at 10:51; Status DC Sodium Chloride 1,000 ml @ 50 mls/hr Q20H IV Last administered on 12/04/16 05 :40; Start 12/01/16 at 16:30; Stop 12/04/16 at 09:25; Status DC Acetaminophen (Tylenol 650 Mg/ 20 ml Liq) 650 mg Q6H PRN PO FEVER Last administered on 12/02/16 01:07; Start 12/01/16 at 17:30 Vancomycin HCl 2100 mg/Sodium Chloride 521 ml @ 250 mls/hr Q18H IV Last administered on 12/02/16 05:36; Start 12/02/16 at 06:00; Stop 12/02/16 at 11:38 ; Status DC Miscellaneous Information SPECIFIC LAB TO BE DRAWN:VANCO TROUGH DATE TO... ONCE ONCE .XX ; Start 12/03/16 at 17:45; Stop 12/03/16 at 17:46; Status Cancel Sodium Chloride 1,000 ml @ 999 mls/hr BOLUS ONCE IV Last administered on 12/02 06:30; Start 12/02/16 at 06:30; Stop 12/02/16 at 07:30; Status DC Methylprednisolone Sodium Succinate (SoluMEDROL INJ) 125 mg ONCE STAT IV PUSH Last administered on 12/02/16 07:14; Start 12/02/16 at 06:52; Stop 12/02/16 at 06:59; Status DC Methylprednisolone Sodium Succinate (SoluMEDROL INJ) 60 mg Q8HR IV PUSH Last administered on 12/05/16 05:17; Start 12/02/16 at 14:00; Stop 12/05/16 at 09:00 ; Status DC Etomidate (Amidate Inj) 20 mg STK-MED ONCE .ROUTE Last administered on 08:07; Start 12/02/16 at 07:29; Stop 12/02/16 at 07:30; Status DC Midazolam HCl (Versed Inj) 5 mg STK-MED ONCE .ROUTE Last administered on 08:07; Start 12/02/16 at 07:29; Stop 12/02/16 at 07:30; Status DC Rocuronium [place] (Zemuron Inj) 50 mg STK-MED ONCE .ROUTE Last administered on 12/02/16 08:08; Start 12/02/16 at 07:30; Stop 12/02/16 at 07:31; Status DC Enoxaparin Sodium (Lovenox Inj) 40 mg Q24H SQ Last administered on 12/20/16 09: 04; Start 12/02/16 at 09:00; Stop 12/20/16 at 09:13; Status DC Chlorhexidine Gluconate (Peridex 0.12% Liq) 15 ml BID@08,20 MT Last administered on 12/24/16 20:00; Start 12/02/16 at 08:00; Stop 12/25/16 at 21:39 ; Status DC Propofol 100 ml @ 0 mls/hr TITRATE IV Last administered on 12/02/16 19:59; Start 12/02/16 at 08:00; Stop 12/03/16 at 07:50; Status DC Fentanyl Citrate 250 ml @ 0 mls/hr TITRATE IV Last administered on 12/03/16 04 :05; Start 12/02/16 at 08:00; Stop 12/04/16 at 09:25; Status DC Metoprolol Tartrate (Lopressor Inj) 2.5 mg Q6H PRN IV PUSH HR >110 Last administered on 12/20/16 18:38; Start 12/02/16 at 08:15; Stop 12/22/16 at 09:53; Status DC Multivitamins 10 ml/Thiamine HCl 100 mg/Folic Acid 1 mg/Sodium Chloride 511.2 ml @ 125 mls/hr DAILY IV Last administered on 12/04/16 09:21; Start 12/02/16 at 09:00; Stop 12/05/16 at 09:00; Status DC Sodium Bicarbonate (Sodium Bicarbonate 8.4% Inj) 50 meq STK-MED ONCE .ROUTE ; Start 12/02/16 at 09:06; Stop 12/02/16 at 09:07; Status DC Sodium Bicarbonate (Sodium Bicarbonate 8.4% Inj) 50 meq NOW ONCE IV PUSH Last administered on 12/02/16 11:16; Start 12/02/16 at 09:45; Stop 12/02/16 at 09:46 ; Status DC Vasopressin 40 units/Dextrose 100 ml @ 4.5 mls/hr [id number] IV Last administered on 12/03/16 04:17; Start 12/02/16 at 11:04; Stop 12/06/16 at 07:32 ; Status DC Sodium Bicarbonate (Sodium Bicarbonate 8.4% Inj) 50 meq ONCE ONCE IV PUSH Last administered on 12/02/16 11:38; Start 12/02/16 at 11:15; Stop 12/02/16 at 11:22; Status DC Rocuronium [place] (Zemuron Inj) 50 mg BOLUS ONCE IV Last administered on 12/02 11:39; Start 12/02/16 at 11:15; Stop 12/02/16 at 11:22; Status DC Sodium Bicarbonate 50 ml @ As Directed STK-MED ONCE .ROUTE Last administered on 12/02/16 15:53; Start 12/02/16 at 11:06; Stop 12/02/16 at 11:07; Status DC Vancomycin HCl 2000 mg/Sodium Chloride 520 ml @ 250 mls/hr Q18H IV Last administered on 12/02/16 23:46; Start 12/03/16 at 00:00; Stop 12/03/16 at 10:51 ; Status DC Norepinephrine Bitartrate 250 ml @ 0 mls/hr TITRATE IV Last administered on 04:05; Start 12/02/16 at 15:15; Stop 12/08/16 at 10:23; Status DC Terbutaline Sulfate (Brethine Inj) 1 mg UNSCH PRN SQ For Extravasation; Start 12/02/16 at 15:15; Stop 12/29/16 at 15:59; Status DC Sodium Bicarbonate 150 meq/Sterile Water 1,000 ml @ 150 mls/hr Q6H40M IV Last administered on 12/03/16 04:16; Start 12/02/16 at 16:00; Stop 12/03/16 at 07:49 ; Status DC Iohexol (OMNIPAQUE 350 INJ (Kerfer Machine Operator)) 100 ml STK-MED ONCE OTHER ; Start at 12:30; Stop 12/02/16 at 15:48; Status DC Lidocaine HCl (Xylocaine 1% Inj (50 ml)) 50 ml STK-MED ONCE .ROUTE ; Start 12/02 at 19:06; Stop 12/02/16 at 19:07; Status DC Dextrose (D50w (Vial) Inj) 50 ml UNSCH PRN IV HYPOGLYCEMIA-SEE COMMENTS; Start 12/02/16 at 22:30; Stop 01/11/17 at 12:31; Status DC Glucagon (Glucagon Inj) 1 mg UNSCH PRN OTHER HYPOGLYCEMIA-SEE COMMENTS; Start 12/02/16 at 22:30; Stop 01/11/17 at 12:31; Status DC Insulin Aspart (NovoLOG SUPPLEMENTAL SCALE) 1 Q4HR SQ Last administered on 12/14 04:00; Start 12/03/16 at 00:00; Stop 12/14/16 at 08:16; Status DC Midazolam HCl 100 ml @ 0 mls/hr TITRATE IV ; Start 12/03/16 at 08:00; Stop 12/04 at 09:25; Status DC Polyethylene Glycol (Miralax) 17 gm DAILY PO Last administered on 01/15/17 09: 19; Start 12/04/16 at 09:00 Bumetanide (Bumex Inj) 1 mg STK-MED ONCE .ROUTE ; Start 12/03/16 at 11:46; Stop 12/03/16 at 11:47; Status DC Bumetanide (Bumex Inj) 1 mg NOW ONCE IV PUSH ; Start 12/03/16 at 15:00; Stop at 15:01; Status DC Cefepime HCl 2000 mg/Sodium Chloride 100 ml @ 200 mls/hr Q8H IV Last administered on 12/06/16 08:16; Start 12/03/16 at 17:00; Stop 12/06/16 at 09:08 ; Status DC Bumetanide (Bumex Inj) 1 mg ONCE ONCE IV PUSH Last administered on 12/04/16 10:00; Start 12/04/16 at 09:30; Stop 12/04/16 at 09:32; Status DC Potassium Chloride 100 ml @ 25 mls/hr Q4H IV ; Start 12/04/16 at 10:00; Stop at 17:59; Status DC Morphine Sulfate (Morphine Inj) 2 mg Q3H PRN IV PUSH pain 5-10 Last administered on 12/05/16 05:16; Start 12/04/16 at 09:30; Stop 12/05/16 at 09:01 ; Status DC Potassium Chloride 100 ml @ 50 mls/hr Q2H PRN IV For Potassium 2.8 - 3.2 mEq/ L Last administered on 12/04/16t 21:17; Start 12/04/16 at 09:30; Stop 12/16/16 at 07:44; Status DC Potassium Chloride 100 ml @ 50 mls/hr Q2H PRN IV For Potassium 2.8 - 3.2 mEq/L ; Start 12/04/16 at 09:30; Stop 12/16/16 at 07:44; Status DC Potassium Bicarb/ Potassium Chloride (K-Lyte Cl Eff) 50 meq UNSCH PRN PO For Potassium 3.3 - 3.5 mEq/L; Start 12/04/16 at 09:30; Stop 12/16/16 at 07:44; Status DC Potassium Chloride 100 ml @ 25 mls/hr UNSCH PRN IV For Potassium 3.3 - 3.5 mEq /L; Start 12/04/16 at 09:30; Stop 12/16/16 at 07:44; Status DC Potassium Chloride 100 ml @ 50 mls/hr Q2H PRN IV For Potassium 3.3 - 3.5 mEq/L ; Start 12/04/16 at 09:30; Stop 12/16/16 at 07:44; Status DC Magnesium Sulfate 4 gm/Sodium Chloride 100 ml @ 50 mls/hr UNSCH PRN IV For Magnesium 0.9 - 1.1 mg/dL; Start 12/04/16 at 09:30; Stop 12/16/16 at 07:44; Status DC Magnesium Oxide (Mag-Ox) 800 mg UNSCH PRN PO For Magnesium 1.2 - 1.6 mg/dL; Start 12/04/16 at 09:30; Stop 12/16/16 at 07:44; Status DC Magnesium Sulfate 2 gm/Sodium Chloride 100 ml @ 50 mls/hr UNSCH PRN IV For Magnesium 1.2 - 1.6 mg/dL; Start 12/04/16 at 09:30; Stop 12/16/16 at 07:44; Status DC Potassium Phosphate (K-Phos) 2,000 mg Q4H PRN PO For Phosphorus < 2.5 mg/dL; Start 12/04/16 at 09:30; Stop 12/16/16 at 07:45; Status DC Sodium Phosphate 30 mmol/Sodium Chloride 250 ml @ 42 mls/hr UNSCH PRN IV For Phosphorus < 2.5 mg/dL Last administered on 12/06/16 06:41; Start 12/04/16 at 09:30; Stop 12/16/16 at 07:45; Status DC Potassium Phosphate (K-Phos) 2,000 mg UNSCH PRN PO/TUBE SEE LABEL COMMENTS; Start 12/04/16 at 09:30; Stop 12/16/16 at 07:45; Status DC Potassium Phosphate 30 mmol/ Sodium Chloride 260 ml @ 42 mls/hr UNSCH PRN IV SEE LABEL COMMENTS; Start 12/04/16 at 09:30; Stop 12/16/16 at 07:45; Status DC Potassium Bicarb/ Potassium Chloride (K-Lyte Cl Eff) 25 meq ONCE ONCE PO ; Start 12/04/16 at 09:30; Stop 12/04/16 at 09:42; Status DC Bumetanide (Bumex Inj) 1 mg ONCE ONCE IV PUSH Last administered on 12/04/16 12:32; Start 12/04/16 at 12:00; Stop 12/04/16 at 12:01; Status DC Calcium Gluconate 1 gm/Sodium Chloride 110 ml @ 110 mls/hr ONCE ONCE IV Last administered on 12/05/16 10:29; Start 12/05/16 at 09:30; Stop 12/05/16 at 10:29 ; Status DC Methylprednisolone Sodium Succinate (SoluMEDROL INJ) 40 mg Q12HR IV PUSH Last administered on 12/10/16 20:09; Start 12/05/16 at 09:00; Stop 12/11/16 at 09:04 ; Status DC Thiamine HCl (Vitamin B1) 100 mg DAILY PO Last administered on 01/10/17 11:07 ; Start 12/05/16 at 09:00; Stop 01/10/17 at 13:03; Status DC Multivitamins (Theragran) 1 tab DAILY PO Last administered on 01/15/17 09:20; Start 12/05/16 at 09:00 Folic Acid (Folate) 1 mg DAILY PO Last administered on 12/25/16 08:07; Start 12/05/16 at 09:00; Stop 01/10/17 at 13:20; Status DC Morphine Sulfate (Morphine Inj) 2 mg Q2H PRN IV PUSH pain 5-10 Last administered on 12/17/16 01:20; Start 12/05/16 at 10:30; Stop 12/17/16 at 10:52; Status DC Albuterol/ Ipratropium (Duoneb Neb) 1 ampule Q4HR NEB NEB Last administered on 12/10/16 03:40; Start 12/06/16 at 08:00; Stop 12/10/16 at 08:00; Status DC Sodium Chloride 1,000 ml @ 125 mls/hr Q8H IV Last administered on 12/07/16 21 :33; Start 12/06/16 at 07:30; Stop 12/08/16 at 10:23; Status DC Rifampin (Rifampin) 300 mg Q12HR PO Last administered on 01/15/17 09:19; Start 12/06/16 at 09:15; Stop 01/15/17 at 23:00; Status Future hold Cefazolin Sodium/ Dextrose 50 ml @ 100 mls/hr Q8H IV Last administered on 01/01 09:53; Start 12/06/16 at 10:00; Stop 01/01/17 at 12:49; Status DC Levofloxacin (Levaquin) 750 mg Q24H PO Last administered on 12/12/16 08:58; Start 12/06/16 at 10:00; Stop 12/13/16 at 09:59; Status DC Insulin Detemir (Levemir Inj) 5 units Q12HR SQ Last administered on 12/13/16 21:29; Start 12/07/16 at 09:00; Stop 12/14/16 at 08:17; Status DC Methylnaltrexone [place] (Relistor Inj) 12 mg ONCE ONCE SQ Last administered on 12/07/16 16:58; Start 12/07/16 at 15:00; Stop 12/07/16 at 15:11; Status DC Metoprolol Tartrate (Lopressor Inj) 2.5 mg ONCE ONCE IV PUSH Last administered on 12/08/16 15:15; Start 12/08/16 at 15:00; Stop 12/08/16 at 15:01 ; Status DC Diltiazem HCl (Cardizem Inj) 10 mg ONCE ONCE IV ; Start 12/08/16 at 15:15; Stop 12/08/16 at 16:09; Status DC Metoprolol Tartrate (Lopressor) 50 mg Q12HR PO Last administered on 12/13/16 20:52; Start 12/08/16 at 21:00; Stop 12/14/16 at 09:12; Status DC Diltiazem HCl (Cardizem) 60 mg Q6H PO Last administered on 12/18/16 17:25; Start 12/09/16 at 05:00; Stop 12/18/16 at 18:39; Status DC Lorazepam (Ativan Inj) 1 mg Q4H PRN IV PUSH ANXIETY AND/OR AGITATION Last administered on 12/31/16 14:16; Start 12/09/16 at 15:15 Haloperidol Lactate (Haldol Inj) 2 mg Q8H PRN IM AGITATION AND/OR HALLUCINATION ; Start 12/10/16 at 17:00 Methylprednisolone Sodium Succinate (SoluMEDROL INJ) 20 mg Q12HR IV PUSH Last administered on 12/13/16 20:50; Start 12/11/16 at 21:00; Stop 12/13/16 at 22:00 ; Status DC Atorvastatin Calcium (Lipitor) 40 mg HS PO Last administered on 01/14/17 21:47 ; Start 12/12/16 at 21:00; Status Future hold Sodium Chloride (NS Flush) See Protocol DAILY IV FLUSH Last administered on 09:19; Start 12/13/16 at 09:00 Sodium Chloride (NS Flush) See Protocol UNSCH PRN IV FLUSH SEE PROTOCOL TABLE; Start 12/12/16 at 17:00 Heparin Sodium (Porcine) (Heparin Central Flush) See Protocol DAILY IV FLUSH Last administered on 01/15/17 09:19; Start 12/13/16 at 09:00 Heparin Sodium (Porcine) (Heparin Central Flush) See Protocol UNSCH PRN IV FLUSH SEE PROTOCOL TABLE; Start 12/12/16 at 17:00 Sodium Chloride (NS Flush) UNSCH PRN IV FLUSH SEE PROTOCOL TABLE Last administered on 12/19/16 01:59; Start 12/12/16 at 17:00 Sodium Chloride 250 ml @ 15 mls/hr ONCE ONCE IV Last administered on 09:34; Start 12/13/16 at 08:15; Stop 12/14/16 at 00:54; Status DC Acetaminophen (Tylenol) 650 mg Q4H PRN PO SEE LABEL COMMENTS; Start 12/13/16 at 08:15; Stop 12/13/16 at 12:16; Status DC Diphenhydramine HCl (Benadryl) 25 mg Q4H PRN PO SEE LABEL COMMENTS; Start 12/13 at 08:15; Stop 12/13/16 at 12:16; Status Cancel Prednisone (Deltasone) 40 mg DAILY PO Last administered on 12/16/16 08:53; Start 12/14/16 at 09:00; Stop 12/16/16 at 09:28; Status DC Pantoprazole Sodium (Protonix) 40 mg Q12HR PO Last administered on 12/22/16 09: 01; Start 12/13/16 at 09:00; Stop 12/22/16 at 09:49; Status DC Diphenhydramine HCl (Benadryl) 25 mg Q4H PRN PO SEE LABEL COMMENTS; Start 12/13 at 17:15; Stop 12/13/16 at 21:16; Status DC Insulin Aspart (NovoLOG SUPPLEMENTAL SCALE) 1 ACHS SLIDING SCALE SQ Last administered on 12/24/16 21:13; Start 12/14/16 at 11:00; Stop 12/25/16 at 21:39 ; Status DC Insulin Detemir (Levemir Inj) 6 units Q12HR SQ Last administered on 12/30/16 09:27; Start 12/14/16 at 09:00; Stop 12/30/16 at 12:40; Status DC Metoprolol Tartrate (Lopressor) 75 mg Q12HR PO Last administered on 12/14/16 12:00; Start 12/14/16 at 12:00; Stop 12/14/16 at 16:10; Status DC Etomidate (Amidate Inj) 25 mg ONCE ONCE IVP ; Start 12/14/16 at 12:15; Stop at 18:48; Status DC Fentanyl Citrate (fentaNYL INJ) 200 mcg ONCE ONCE IV ; Start 12/14/16 at 12:15 ; Stop 12/14/16 at 18:48; Status DC Succinylcholine Chloride (Quelicin Inj) 150 mg ONCE ONCE IV ; Start 12/14/16 at 12:15; Stop 12/14/16 at 18:48; Status DC Metoprolol Tartrate (Lopressor) 100 mg Q12HR PO Last administered on 12/22/16 09:01; Start 12/14/16 at 21:00; Stop 12/22/16 at 12:48; Status DC Metoprolol Tartrate (Lopressor) 25 mg ONCE ONCE PO Last administered on 16:55; Start 12/14/16 at 16:15; Stop 12/14/16 at 16:16; Status DC Iron Sucrose 100 mg/Sodium Chloride 105 ml @ 105 mls/hr DAILY IV Last administered on 12/18/16 08:01; Start 12/16/16 at 09:00; Stop 12/18/16 at 09:59; Status DC Nitroglycerin (Nitrostat Sl) 0.4 mg Q5M PRN SL CHEST PAIN; Start 12/16/16 at 00: 15 Prednisone (Deltasone) 20 mg DAILY PO Last administered on 12/20/16 09:04; Start 12/17/16 at 09:00; Stop 12/20/16 at 10:01; Status DC Gadodiamide (Omniscan Pf Inj) 21 ml STK-MED ONCE IV Last administered on 15:41; Start 12/17/16 at 15:41; Stop 12/17/16 at 15:42; Status DC Oxycodone HCl (Roxicodone) 10 mg Q4H PRN PO PAIN 6-10 Last administered on 02:37; Start 12/17/16 at 19:00; Stop 12/21/16 at 08:51; Status DC Diltiazem HCl (Cardizem Inj) 20 mg ONCE PRN IV if HR 110-130 Last administered on 12/17/16 21:49; Start 12/17/16 at 21:30; Stop 12/17/16 at 22:30; Status DC Diltiazem HCl (Cardizem Inj) 20 mg ONCE ONCE IVP ; Start 12/17/16 at 21:30; Stop 12/17/16 at 21:40; Status DC Diltiazem HCl 125 mg/Sodium Chloride 125 ml @ 0 mls/hr TITRATE IV Last administered on 12/17/16 22:12; Start 12/17/16 at 21:30; Stop 12/19/16 at 18:12; Status DC Lorazepam (Ativan) 0.5 mg DAILY PRN PO ANXIETY Last administered on 12/19/16 08 :29; Start 12/18/16 at 15:45; Status Future Hold Diltiazem HCl (Cardizem) 90 mg Q6H PO Last administered on 12/25/16 12:14; Start 12/18/16 at 23:00; Status Future Hold Diltiazem HCl (Cardizem) 30 mg NOW ONCE PO Last administered on 12/18/16 19:33 ; Start 12/18/16 at 19:30; Stop 12/18/16 at 19:31; Status DC Diltiazem HCl (Cardizem Inj) 10 mg NOW ONCE IV Last administered on 12/18/16 19:32; Start 12/18/16 at 19:30; Stop 12/18/16 at 19:31; Status DC Alteplase, Recombinant (Cathflo Activase Inj) 2 mg UNSCH X1 IV FLUSH ; Start at 19:45; Stop 12/18/16 at 23:00; Status DC Metoprolol Tartrate (Lopressor Inj) 5 mg ONCE ONCE IV PUSH Last administered on 12/19/16 05:40; Start 12/19/16 at 05:30; Stop 12/19/16 at 05:31; Status DC Digoxin (Lanoxin Inj) 0.5 mg NOW STAT IVS Last administered on 12/19/16 17:19 ; Start 12/19/16 at 16:51; Stop 12/19/16 at 17:04; Status DC Digoxin (Lanoxin Inj) 0.25 mg Q6H IVS Last administered on 12/20/16 03:54; Start 12/19/16 at 23:00; Stop 12/20/16 at 05:01; Status DC Digoxin (Lanoxin) 0.125 mg DAILY PO Last administered on 12/21/16 08:29; Start 12/20/16 at 09:00; Stop 12/21/16 at 11:59; Status DC Furosemide (Lasix Inj) 20 mg ONCE ONCE IV PUSH Last administered on 12/19/16 18:12; Start 12/19/16 at 17:45; Stop 12/19/16 at 17:46; Status DC Potassium Bicarb/ Potassium Chloride (K-Lyte Cl Eff) 25 meq ONCE ONCE PO Last administered on 12/19/16 18:12; Start 12/19/16 at 17:45; Stop 12/19/16 at 17: 46; Status DC Diltiazem HCl 125 mg/Sodium Chloride 125 ml @ 0 mls/hr TITRATE IV Last administered on 12/30/16 16:37; Start 12/19/16 at 18:15; Stop 12/31/16 at 01:45 ; Status DC Diltiazem HCl (Cardizem Inj) 18 mg NOW ONCE IV Last administered on 12/19/16 19:29; Start 12/19/16 at 18:15; Stop 12/19/16 at 18:16; Status DC Apixaban (Eliquis) 5 mg BID PO ; Start 12/20/16 at 10:00; Stop 12/20/16 at 10:00; Status DC Apixaban (Eliquis) 5 mg BID PO Last administered on 12/21/16 21:02; Start at 10:00; Stop 12/22/16 at 09:49; Status DC Diltiazem HCl (Cardizem Inj) 10 mg ONCE ONCE IV ; Start 12/20/16 at 09:30; Stop 12/20/16 at 09:31; Status DC Prednisone (Deltasone) 10 mg DAILY PO Last administered on 12/28/16 08:14; Start 12/21/16 at 09:00; Stop 12/28/16 at 13:58; Status DC Atropine Sulfate (Atropine Inj) 1 mg STK-MED ONCE .ROUTE ; Start 12/20/16 at 12: 45; Stop 12/20/16 at 12:46; Status DC Epinephrine HCl (EPINEPHrine (1:10,000) INJ) 1 mg STK-MED ONCE .ROUTE ; Start at 12:45; Stop 12/20/16 at 12:46; Status DC Acetaminophen (Tylenol) 650 mg ONCE ONCE PO Last administered on 12/20/16 18: 39; Start 12/20/16 at 18:45; Stop 12/20/16 at 18:46; Status DC Diphenhydramine HCl (Benadryl) 25 mg ONCE ONCE PO Last administered on 18:39; Start 12/20/16 at 18:45; Stop 12/20/16 at 18:46; Status DC Calcium Carbonate (Tums Chew) 500 mg ONCE ONCE CHEW Last administered on 00:45; Start 12/21/16 at 00:45; Stop 12/21/16 at 00:46; Status DC Calcium Carbonate (Tums Chew) 500 mg ONCE ONCE CHEW Last administered on 04:52; Start 12/21/16 at 05:00; Stop 12/21/16 at 05:01; Status DC Oxycodone HCl (Roxicodone) 15 mg Q4H PRN PO PAIN 6-10 Last administered on 01/09 21:26; Start 12/21/16 at 11:00; Stop 01/10/17 at 13:19; Status DC Digoxin (Lanoxin Inj) 0.5 mg NOW STAT IVS Last administered on 12/21/16 12:41 ; Start 12/21/16 at 11:49; Stop 12/21/16 at 11:50; Status DC Digoxin (Lanoxin Inj) 0.25 mg Q6H IVS Last administered on 12/21/16 17:19; Start 12/21/16 at 18:00; Stop 12/22/16 at 00:01; Status DC Digoxin (Lanoxin) 0.25 mg DAILY PO Last administered on 12/25/16 08:06; Start 12/22/16 at 09:00; Status Future Hold Calcium Carbonate (Tums Chew) 500 mg ONCE ONCE CHEW ; Start 12/22/16 at 01:00; Stop 12/22/16 at 01:01; Status DC Heparin Sodium (Porcine) (Heparin Inj) 5,000 units UNSCH PRN IV APTT LESS THAN 25; Start 12/22/16 at 15:15; Stop 12/23/16 at 00:05; Status DC Heparin Sodium (Porcine) (Heparin Inj) 2,500 units UNSCH PRN IV APTT 25 TO 39; Start 12/22/16 at 15:15; Stop 12/23/16 at 00:05; Status DC Heparin Sodium/ Dextrose 250 ml @ 0 mls/hr TITRATE IV ; Start 12/22/16 at 09:15; Stop 12/22/16 at 09:42; Status DC Sucralfate (Carafate Liq) 1 gm ACHS PO Last administered on 01/15/17 11:04; Start 12/22/16 at 11:00 Metoprolol Tartrate (Lopressor Inj) 5 mg Q1HR PRN IV PUSH RAPID HEART RATE Last administered on 12/30/16 10:37; Start 12/22/16 at 09:45 Pantoprazole Sodium (Protonix Inj) 40 mg Q12H IV PUSH Last administered on 01/15 09:20; Start 12/22/16 at 10:00 Aspirin (Ecotrin Ec) 81 mg DAILY PO Last administered on 12/25/16 08:06; Start 12/23/16 at 09:00; Stop 01/10/17 at 14:17; Status DC Heparin Sodium/ Dextrose 250 ml @ 0 mls/hr TITRATE IV Last administered on 12:43; Start 12/22/16 at 10:00; Stop 12/23/16 at 00:05; Status DC Metoprolol Tartrate (Lopressor) 25 mg Q6HR PO Last administered on 01/15/17 11 :04; Start 12/22/16 at 13:00 Furosemide (Lasix Inj) 20 mg ONCE ONCE IV PUSH Last administered on 12/22/16 12:44; Start 12/22/16 at 13:00; Stop 12/22/16 at 13:01; Status DC Furosemide (Lasix Inj) 20 mg ONCE IV PUSH Last administered on 12/23/16 02:31; Start 12/22/16 at 23:00; Stop 12/23/16 at 06:00; Status DC Morphine Sulfate (Morphine Inj) 2 mg Q4H PRN IV PUSH pain >5 Last administered on 12/29/16 14:08; Start 12/23/16 at 00:00; Stop 12/29/16 at 15:59; Status DC Diphenhydramine HCl (Benadryl) 25 mg ONCE ONCE PO Last administered on 04:04; Start 12/23/16 at 23:45; Stop 12/23/16 at 23:46; Status DC Acetaminophen (Tylenol) 650 mg ONCE ONCE PO Last administered on 12/24/16t 04: 04; Start 12/23/16 at 23:45; Stop 12/23/16 at 23:46; Status DC Furosemide (Lasix Inj) 20 mg DAILY IV PUSH Last administered on 01/06/17t 08:59 ; Start 12/24/16 at 09:15; Stop 01/06/17 at 10:08; Status DC Lactated Ringer's 1,000 ml @ 30 mls/hr Q24H PRN IV SEE LABEL COMMENTS; Start at 22:00; Stop 12/26/16 at 14:00; Status DC Sodium Chloride 500 ml @ 30 mls/hr [id number] PRN IV SEE LABEL COMMENTS; Start 12/24/16 at 22:00; Stop 12/27/16 at 21:59; Status DC Metoprolol Tartrate (Lopressor) 25 mg [employer]IOR [employer] PROFESSIONAL PRN PO SEE LABEL COMMENTS; Start 12/24/16 at 22:00; Stop 12/27/16 at 21:59; Status DC Povidone Iodine (Betadine 5% Antisepsis Kit) 1 applic [employer] PROFESSIONAL PRN EACH NARE SEE LABEL COMMENTS; Start 12/24/16 at 22:00; Stop 12/27/16 at 21:59; Status DC Chlorhexidine Gluconate (Chlorhexidine 2% Cloth) 3 pack [employer] PROFESSIONAL PRN TOPICAL SEE LABEL COMMENTS; Start 12/24/16 at 22:00; Stop 12/27/16 at 21:59; Status DC Insulin Human Regular (NovoLIN R INJ) See Protocol Table ... INTER[employer] DESIGN PROFESSIONAL PRN SQ SEE PROTOCOL TABLE; Start 12/24/16 at 22:00; Stop 12/25/16 at 21:37; Status DC Propofol 100 ml @ As Directed STK-MED ONCE .ROUTE ; Start 12/25/16 at 19:27; Stop 12/25/16 at 19:28; Status DC Midazolam HCl (Versed Inj) 2 mg STK-MED ONCE .ROUTE ; Start 12/25/16 at 20:09; Stop 12/25/16 at 20:10; Status DC Morphine Sulfate (Morphine Inj) 4 mg STK-MED ONCE .ROUTE ; Start 12/25/16 at 20: 10; Stop 12/25/16 at 20:11; Status DC Propofol 100 ml @ 0 mls/hr TITRATE IV ; Start 12/25/16 at 20:15; Stop 12/25/16 at 21:28; Status DC Propofol (Diprivan 200 Mg/20 ml Inj) 200 mg STK-MED ONCE IV ; Start 12/25/16 at 18:30; Stop 12/25/16 at 20:15; Status DC Phenylephrine HCl (Neosynephrine/ NS 1000 Mcg/10ml Syr) 500 mcg STK-MED ONCE IV ; Start 12/25/16 at 18:32; Stop 12/25/16 at 20:17; Status DC Lactated Ringer's (Lr 1000 ml Inj) 1,000 ml STK-MED ONCE IV ; Start 12/25/16 at 18:32; Stop 12/25/16 at 20:17; Status DC Sodium Chloride (NS 500 ml Inj) 500 ml STK-MED ONCE IV ; Start 12/25/16 at 18:32 ; Stop 12/25/16 at 20:17; Status DC Miscellaneous Information ALL NURSING DEPARTME... UNSCH PRN .XX SEE LABEL COMMENTS; Start 12/25/16 at 20:30; Stop 12/26/16 at 20:29; Status DC Phenylephrine HCl (Neosynephrine Inj) 40 mg STK-MED ONCE .ROUTE ; Start at 20:25; Stop 12/25/16 at 20:26; Status DC Propofol 100 ml @ 0 mls/hr TITRATE IV Last administered on 01/03/17 14:37; Start 12/25/16 at 20:30; Stop 01/03/17 at 20:19; Status DC Phenylephrine HCl (Neosynephrine/ NS 1000 Mcg/10ml Syr) 1,000 mcg STK-MED ONCE .ROUTE ; Start 12/25/16 at 20:28; Stop 12/25/16 at 20:29; Status DC Fentanyl Citrate 250 ml @ As Directed STK-MED ONCE .ROUTE ; Start 12/25/16 at 20:34; Stop 12/25/16 at 20:35; Status DC Phenylephrine HCl 40 mg/Dextrose 500 ml @ 0 mls/hr TITRATE IV Last administered on 12/27/16t 03:16; Start 12/25/16 at 20:45; Stop 12/29/16 at 15:59 ; Status DC Terbutaline Sulfate (Brethine Inj) 1 mg UNSCH PRN SQ FOR EXTRAVASATION PROTOCOL ; Start 12/25/16 at 20:45; Stop 12/29/16 at 16:00; Status DC Fentanyl Citrate 250 ml @ 0 mls/hr TITRATE IV ; Start 12/25/16 at 21:00; Stop at 16:00; Status DC Magnesium Oxide (Mag-Ox) 800 mg UNSCH PRN PO For Magnesium 1.2 - 1.6 mg/dL Last administered on 12/27/16 06:46; Start 12/25/16 at 21:00; Stop 01/14/17 at 15:02; Status DC Magnesium Sulfate 4 gm/Sodium Chloride 100 ml @ 50 mls/hr UNSCH PRN IV For Magnesium 0.9 - 1.1 mg/dL; Start 12/25/16 at 21:00; Stop 01/14/17 at 15:02; Status DC Magnesium Sulfate 2 gm/Sodium Chloride 100 ml @ 50 mls/hr UNSCH PRN IV For Magnesium 1.2 - 1.6 mg/dL; Start 12/25/16 at 21:00; Stop 01/14/17 at 15:02; Status DC Potassium Chloride 100 ml @ 50 mls/hr Q2H PRN IV For Potassium 2.8 - 3.2 mEq/L ; Start 12/25/16 at 21:00; Stop 01/14/17 at 15:02; Status DC Potassium Chloride 100 ml @ 50 mls/hr Q2H PRN IV For Potassium 3.3 - 3.5 mEq/ L Last administered on 01/08/17 04:35; Start 12/25/16 at 21:00; Stop 01/14/17 at 15:02; Status DC Potassium Chloride 100 ml @ 50 mls/hr Q2H PRN IV For Potassium 2.8 - 3.2 mEq/L ; Start 12/25/16 at 21:00; Stop 01/14/17 at 15:02; Status DC Potassium Chloride 100 ml @ 25 mls/hr UNSCH PRN IV For Potassium 3.3 - 3.5 mEq /L Last administered on 01/04/17 06:32; Start 12/25/16 at 21:00; Stop 01/14/17 at 15:02; Status DC Potassium Phosphate (K-Phos) 2,000 mg Q4H PRN PO For Phosphorus < 2.5 mg/dL; Start 12/25/16 at 21:00; Stop 01/14/17 at 15:02; Status DC Potassium Phosphate (K-Phos) 2,000 mg UNSCH PRN PO/TUBE SEE LABEL COMMENTS; Start 12/25/16 at 21:00; Stop 01/14/17 at 15:02; Status DC Potassium Phosphate 30 mmol/ Sodium Chloride 260 ml @ 42 mls/hr UNSCH PRN IV SEE LABEL COMMENTS; Start 12/25/16 at 21:00; Stop 01/14/17 at 15:02; Status DC Sodium Phosphate 30 mmol/Sodium Chloride 250 ml @ 42 mls/hr UNSCH PRN IV For Phosphorus < 2.5 mg/dL Last administered on 12/30/16 06:49; Start 12/25/16 at 21:00; Stop 01/14/17 at 15:02; Status DC Chlorhexidine Gluconate (Peridex 0.12% Liq) 15 ml BID@08,20 MT Last administered on 01/08/17 19:50; Start 12/26/16 at 08:00; Stop 01/11/17 at 12:33 ; Status DC Dextrose (D50w (Vial) Inj) 25 ml UNSCH PRN IV PUSH HYPOGLYCEMIA-SEE COMMENTS; Start 12/25/16 at 21:00; Stop 01/10/17 at 14:28; Status DC Insulin Human Regular (NovoLIN R SUPPLEMENTAL SCALE) 1 Q6HR SQ Last administered on 01/10/17 12:27; Start 12/26/16 at 00:00; Stop 01/10/17 at 14:28 ; Status DC Albuterol/ Ipratropium (Duoneb Neb) 1 ampule Q6HR NEB INH Last administered on 01/02/17 08:17; Start 12/25/16 at 22:00; Stop 01/02/17 at 15:48; Status DC Albuterol/ Ipratropium (Duoneb Neb) 1 ampule Q2HR NEB PRN INH WHEEZING Last administered on 01/14/17 20:18; Start 12/25/16 at 21:00 Dextrose 1,000 ml @ 42 mls/hr [id number] IV Last administered on 12/25/16 23:27 ; Start 12/25/16 at 21:00; Stop 12/26/16 at 14:01; Status DC Amiodarone HCl 150 mg/Dextrose 100 ml @ 600 mls/hr ONCE ONCE IV ; Start at 21:00; Stop 12/25/16 at 21:09; Status DC Amiodarone HCl 900 mg/Dextrose 500 ml @ 0 mls/hr CONTINUOUS IV ; Start 12/25/16 at 21:00; Stop 12/25/16 at 21:13; Status DC Magnesium Sulfate/ Dextrose 100 ml @ 100 mls/hr Q1H IV ; Start 12/25/16 at 21: 00; Stop 12/25/16 at 22:59; Status DC Potassium Chloride 100 ml @ 50 mls/hr BOLUS ONCE IV ; Start 12/25/16 at 21:00 ; Stop 12/25/16 at 22:59; Status DC Sodium Chloride 250 ml @ As Directed STK-MED ONCE .ROUTE ; Start 12/25/16 at 21 :04; Stop 12/25/16 at 21:05; Status DC Amiodarone HCl (Cordarone Inj) 150 mg STK-MED ONCE .ROUTE ; Start 12/25/16 at 21 :05; Stop 12/25/16 at 21:06; Status DC Amiodarone HCl 450 mg/Dextrose 250 ml @ 0 mls/hr CONTINUOUS IV Last administered on 01/03/17 01:19; Start 12/25/16 at 21:15; Stop 01/03/17 at 12:30 ; Status DC Sodium Chloride 1,000 ml @ 999 mls/hr BOLUS ONCE IV Last administered on 12/26 14:17; Start 12/26/16 at 14:00; Stop 12/26/16 at 15:00; Status DC Sodium Chloride 1,000 ml @ 75 mls/hr [id number] IV Last administered on 16:38; Start 12/26/16 at 14:00; Stop 12/28/16 at 23:00; Status DC Amiodarone HCl 150 mg/Dextrose 100 ml @ 100 mls/hr ONCE ONCE IV Last administered on 12/26/16 23:27; Start 12/26/16 at 23:00; Stop 12/26/16 at 23:59 ; Status DC Clopidogrel Bisulfate (Plavix) 150 mg NOW ONCE PO Last administered on 13:43; Start 12/28/16 at 12:30; Stop 12/28/16 at 12:34; Status DC Aspirin (Ecotrin Ec) 162 mg NOW ONCE PO Last administered on 12/28/16 13:43; Start 12/28/16 at 12:30; Stop 12/28/16 at 12:34; Status DC Clopidogrel Bisulfate (Plavix) 75 mg DAILY PO Last administered on 01/15/17 09 :19; Start 12/29/16 at 09:00 Aspirin (Ecotrin Ec) 162 mg DAILY PO Last administered on 01/15/17 09:19; Start 12/29/16 at 09:00; Status Future hold Prednisone (Deltasone) 5 mg DAILY PO Last administered on 01/15/17 09:19; Start 12/29/16 at 09:00; Status Future hold Furosemide (Lasix Inj) 40 mg ONCE ONCE IV PUSH Last administered on 12/28/16 23:10; Start 12/28/16 at 23:00; Stop 12/28/16 at 23:02; Status DC Atropine Sulfate (Atropine Inj) 1 mg STK-MED ONCE IV ; Start 12/26/16 at 05:00; Stop 12/29/16 at 10:52; Status DC Magnesium Sulfate/ Dextrose 100 ml @ 100 mls/hr Q1H IV Last administered on 17:49; Start 12/29/16 at 16:00; Stop 12/29/16 at 18:59; Status DC Potassium Chloride 100 ml @ 100 mls/hr Q1H IV Last administered on 12/29/16 17:14; Start 12/29/16 at 15:00; Stop 12/29/16 at 17:59; Status DC Metolazone (Zaroxolyn) 5 mg ONCE ONCE PO Last administered on 12/29/16 17:14 ; Start 12/29/16 at 16:00; Stop 12/29/16 at 16:01; Status DC Bumetanide (Bumex Inj) 1 mg ONCE ONCE IV PUSH Last administered on 12/29/16 16:22; Start 12/29/16 at 16:00; Stop 12/29/16 at 16:01; Status DC Levothyroxine Sodium (Synthroid) 50 mcg DAILY@06 PO Last administered on 05:30; Start 12/30/16 at 06:00; Stop 01/10/17 at 13:20; Status DC Sodium Phosphate 30 mmol/Sodium Chloride 260 ml @ 43.333 mls/ hr ONCE ONCE IV ; Start 12/30/16 at 15:00; Stop 12/30/16 at 20:59; Status DC Magnesium Sulfate/ Dextrose 100 ml @ 100 mls/hr Q1H IV Last administered on 14:30; Start 12/30/16 at 12:45; Stop 12/30/16 at 14:44; Status DC Potassium Chloride 100 ml @ 100 mls/hr Q1H IV Last administered on 12/30/16 18:31; Start 12/30/16 at 12:45; Stop 12/30/16 at 15:44; Status DC Insulin Detemir (Levemir Inj) 10 units Q12HR SQ Last administered on 01/03/17 21:05; Start 12/30/16 at 21:00; Stop 01/04/17 at 06:47; Status DC Acetaminophen (Tylenol) 650 mg ONCE ONCE PO Last administered on 12/30/16 23: 45; Start 12/30/16 at 23:45; Stop 12/30/16 at 23:46; Status DC Diphenhydramine HCl (Benadryl) 25 mg ONCE ONCE PO Last administered on 23:45; Start 12/30/16 at 23:45; Stop 12/30/16 at 23:46; Status DC Furosemide (Lasix Inj) 20 mg ONCE ONCE IV PUSH Last administered on 12/31/16 05:16; Start 12/30/16 at 23:45; Stop 12/30/16 at 23:46; Status DC Iohexol (Omnipaque 350 Inj) 75 ml STK-MED ONCE IV Last administered on 01:04; Start 12/31/16 at 01:04; Stop 12/31/16 at 01:05; Status DC Diltiazem HCl 125 mg/Sodium Chloride 125 ml @ 0 mls/hr TITRATE IV Last administered on 01/05/17 02:43; Start 12/31/16 at 01:45; Stop 01/06/17 at 15:03 ; Status DC Dexmedetomidine HCl 200 mcg/ Sodium Chloride 52 ml @ 0 mls/hr TITRATE IV Last administered on 12/31/16 21:25; Start 12/31/16 at 21:15; Stop 12/31/16 at 22:55 ; Status DC Dexmedetomidine HCl 1000 mcg/ Sodium Chloride 250 ml @ 0 mls/hr TITRATE IV Last administered on 01/01/17 00:38; Start 12/31/16 at 23:00; Stop 01/01/17 at 12:01; Status DC Phenylephrine HCl 160 mg/Sodium Chloride 1,016 ml @ 0 mls/hr TITRATE IV ; Start 01/01/17 at 11:00; Stop 01/01/17 at 11:00; Status DC Terbutaline Sulfate (Brethine Inj) 1 mg UNSCH PRN SQ For Extravasation; Start 01/01/17 at 10:45; Stop 01/10/17 at 13:03; Status DC Rocuronium [place] (Zemuron Inj) 100 mg BOLUS ONCE IV Last administered on 10:45; Start 01/01/17 at 10:45; Stop 01/01/17 at 10:46; Status DC Midazolam HCl (Versed Inj) 5 mg ONCE ONCE IM Last administered on 01/01/17 10 :45; Start 01/01/17 at 10:45; Stop 01/01/17 at 10:46; Status DC Chlorhexidine Gluconate (Peridex 0.12% Liq) 15 ml BID@08,20 MT Last administered on 01/14/17 20:00; Start 01/01/17 at 20:00 Propofol 100 ml @ 0 mls/hr TITRATE IV Last administered on 01/06/17 13:24; Start 01/01/17 at 10:45; Stop 01/08/17 at 14:39; Status DC Fentanyl Citrate 250 ml @ 0 mls/hr TITRATE IV Last administered on 01/06/17 04 :51; Start 01/01/17 at 10:45; Stop 01/06/17 at 15:05; Status DC Phenylephrine HCl 160 mg/Sodium Chloride 516 ml @ 0 mls/hr TITRATE IV Last administered on 01/06/17 11:20; Start 01/01/17 at 11:00; Stop 01/06/17 at 15:04 ; Status DC Furosemide (Lasix Inj) 40 mg ONCE ONCE IV PUSH Last administered on 01/01/17 14:41; Start 01/01/17 at 13:00; Stop 01/01/17 at 13:01; Status DC Vancomycin HCl 1000 mg/Sodium Chloride 250 ml @ 250 mls/hr ONCE ONCE IV Last administered on 01/01/17 14:30; Start 01/01/17 at 14:30; Stop 01/01/17 at 15:29 ; Status DC Cefepime HCl 2000 mg/Sodium Chloride 100 ml @ 200 mls/hr Q12H IV Last administered on 01/07/17 02:47; Start 01/01/17 at 14:00; Stop 01/07/17 at 10:17 ; Status DC Vancomycin HCl 1000 mg/Sodium Chloride 250 ml @ 250 mls/hr ONCE ONCE IV Last administered on 01/02/17 16:02; Start 01/02/17 at 14:30; Stop 01/02/17 at 15:29 ; Status DC Potassium Chloride 100 ml @ 25 mls/hr BOLUS ONCE IV ; Start 01/03/17 at 08:30 ; Stop 01/03/17 at 12:30; Status DC Aspirin (Aspirin Supp) 300 mg DAILY RECTAL Last administered on 01/09/17 09:20 ; Start 01/03/17 at 09:00; Stop 01/10/17 at 12:59; Status DC Levothyroxine Sodium (Synthroid Inj) 25 mcg DAILY@06 IV PUSH Last administered on 01/10/17 06:45; Start 01/04/17 at 06:00; Stop 01/10/17 at 13:21; Status DC Rifampin 300 mg/ Sodium Chloride 100 ml @ 100 mls/hr Q12H IV Last administered on 01/10/17 12:28; Start 01/03/17 at 10:00; Stop 01/10/17 at 13:10 ; Status DC Albuterol/ Ipratropium (Duoneb Neb) 1 ampule Q6HR NEB NEB Last administered on 01/06/17 12:45; Start 01/03/17 at 10:00; Stop 01/06/17 at 10:50; Status DC Methylprednisolone Sodium Succinate (SoluMEDROL INJ) 20 mg DAILY IV PUSH Last administered on 01/10/17 08:46; Start 01/03/17 at 09:00; Stop 01/10/17 at 14:32 ; Status DC Amiodarone HCl 450 mg/Sodium Chloride 250 ml @ 0 mls/hr CONTINUOUS IV Last administered on 01/07/17 08:45; Start 01/03/17 at 13:00; Stop 01/07/17 at 09:29 ; Status DC Lidocaine HCl (Xylocaine 1% Inj (50 ml)) 50 ml STK-MED ONCE .ROUTE ; Start 01/03 at 12:33; Stop 01/03/17 at 12:34; Status DC Multivitamins 10 ml/Folic Acid 1 mg/Amino Acids/ Electrolytes/ Dextrose 2,010.2 ml @ 30 mls/hr Q24H IV-CENTRAL Last administered on 01/11/17 00:57; Start at 20:00; Stop 01/11/17 at 12:10; Status DC Insulin Detemir (Levemir Inj) 20 units Q12HR SQ Last administered on 01/06/17 09:00; Start 01/04/17 at 09:00; Stop 01/06/17 at 10:07; Status DC Potassium Chloride 100 ml @ 25 mls/hr BOLUS ONCE IV ; Start 01/04/17 at 07:00 ; Stop 01/04/17 at 10:59; Status DC Magnesium Sulfate/ Dextrose 100 ml @ 100 mls/hr Q1H IV Last administered on 08:00; Start 01/04/17 at 07:00; Stop 01/04/17 at 08:59; Status DC Methylnaltrexone [place] (Relistor Inj) 12 mg ONCE ONCE SQ Last administered on 01/04/17 07:30; Start 01/04/17 at 07:30; Stop 01/04/17 at 07:31; Status DC Mineral Oil (Fleet Mineral Oil Enema) 118 ml ONCE ONCE RECTAL Last administered on 01/04/17 07:00; Start 01/04/17 at 07:00; Stop 01/04/17 at 07:01 ; Status DC Artificial Tears (Tears Naturale Opth Soln) 1 drop Q8HR EACH EYE Last administered on 01/15/17 07:02; Start 01/04/17 at 14:00 Albuterol/ Ipratropium (Duoneb Neb) 1 ampule Q6HR NEB NEB Last administered on 01/10/17 09:02; Start 01/06/17 at 16:00; Stop 01/10/17 at 13:10; Status DC Albuterol/ Ipratropium (Duoneb Neb) 1 ampule Q6HR NEB NEB ; Start 01/06/17 at 16:00; Stop 01/06/17 at 16:00; Status DC Insulin Detemir (Levemir Inj) 30 units Q12HR SQ Last administered on 01/15/17 09:38; Start 01/06/17 at 21:00 Albumin Human (Albumin 25% Inj) 25 gm Q12H IV Last administered on 01/07/17 22 :27; Start 01/06/17 at 11:00; Stop 01/08/17 at 10:59; Status DC Furosemide (Lasix Inj) 20 mg Q12HR IV PUSH Last administered on 01/11/17 08:48 ; Start 01/06/17 at 21:00; Stop 01/11/17 at 11:52; Status DC Furosemide (Lasix Inj) 20 mg ONCE ONCE IV PUSH Last administered on 01/06/17 11:25; Start 01/06/17 at 10:15; Stop 01/06/17 at 10:23; Status DC Potassium Chloride 100 ml @ 25 mls/hr BOLUS ONCE IV Last administered on 01/06 13:25; Start 01/06/17 at 12:00; Stop 01/06/17 at 15:59; Status DC Acetazolamide Sodium (Diamox Inj) 500 mg ONCE ONCE IV PUSH Last administered on 01/06/17 11:25; Start 01/06/17 at 10:30; Stop 01/06/17 at 10:31; Status DC Diltiazem HCl 125 mg/Sodium Chloride 125 ml @ 5 mls/hr TITRATE PRN IV Blood Pressure Management; Start 01/06/17 at 15:15; Stop 01/07/17 at 09:29; Status DC Phenylephrine HCl 160 mg/Sodium Chloride 516 ml @ 7.74 mls/hr TITRATE PRN IV Blood Pressure Management; Start 01/06/17 at 15:15; Stop 01/10/17 at 13:19; Status DC Fentanyl Citrate 250 ml @ 5 mls/hr TITRATE PRN IV PAIN MANAGEMENT; Start at 15:15; Stop 01/10/17 at 13:01; Status DC Sodium Chloride 250 ml @ 15 mls/hr ONCE ONCE IV ; Start 01/06/17 at 17:00; Stop 01/07/17 at 10:04; Status DC Amiodarone HCl (Cordarone) 200 mg Q12HR PO Last administered on 01/15/17 09:20 ; Start 01/07/17 at 10:00 Cefepime HCl 2000 mg/Sodium Chloride 100 ml @ 200 mls/hr Q8H IV ; Start at 18:00; Stop 01/07/17 at 18:00; Status DC Furosemide (Lasix Inj) 40 mg ONCE ONCE IV PUSH Last administered on 01/07/17 11:22; Start 01/07/17 at 10:30; Stop 01/07/17 at 11:00; Status DC Potassium Chloride 100 ml @ 25 mls/hr BOLUS ONCE IV Last administered on 01/07 11:24; Start 01/07/17 at 10:30; Stop 01/07/17 at 14:29; Status DC Cefazolin Sodium/ Dextrose 50 ml @ 100 mls/hr Q8H IV Last administered on 01/15 09:21; Start 01/07/17 at 17:00; Stop 01/15/17 at 16:59 Levofloxacin (Levaquin) 750 mg DAILY@1700 PO ; Start 01/07/17 at 17:00; Stop at 16:59; Status Cancel Levofloxacin (Levaquin) 750 mg DAILY@1800 PO Last administered on 01/13/17 17: 04; Start 01/07/17 at 18:00; Stop 01/14/17 at 17:59; Status DC Propofol 100 ml @ 0 mls/hr TITRATE IV ; Start 01/08/17 at 14:45; Stop 01/10/17 at 12:59; Status DC Albuterol/ Ipratropium (Duoneb Neb) 1 ampule Q6HR NEB NEB Last administered on 01/14/17 10:09; Start 01/10/17 at 16:00; Stop 01/14/17 at 15:59; Status DC Levothyroxine Sodium (Synthroid) 50 mcg DAILY@0600 PO Last administered on 01/15 06:57; Start 01/11/17 at 06:00 Oxycodone/ Acetaminophen (Percocet 10-325 Mg) 1 tab Q4H PRN PO PAIN 1-10 Last administered on 01/15/17 11:04; Start 01/10/17 at 14:15 Oxycodone HCl (Roxicodone) 5 mg Q4H PRN PO BREAKTHROUGH PAIN Last administered on 01/12/17 23:06; Start 01/10/17 at 14:15 Potassium Chloride 100 ml @ 25 mls/hr BOLUS ONCE IV Last administered on 01/10 16:07; Start 01/10/17 at 15:30; Stop 01/10/17 at 19:29; Status DC Dextrose (D50w (Vial) Inj) 50 ml UNSCH PRN IV HYPOGLYCEMIA-SEE COMMENTS; Start 01/10/17 at 14:30; Stop 01/11/17 at 12:31; Status DC Glucagon (Glucagon Inj) 1 mg UNSCH PRN OTHER HYPOGLYCEMIA-SEE COMMENTS; Start 01/10/17 at 14:30; Stop 01/11/17 at 12:31; Status DC Insulin Aspart (NovoLOG SUPPLEMENTAL SCALE) 1 Q4H SQ Last administered on 00:00; Start 01/10/17 at 16:00; Stop 01/11/17 at 12:03; Status DC Temazepam (Restoril) 15 mg HS PRN PO SLEEP Last administered on 01/14/17 21:48 ; Start 01/11/17 at 11:45 Furosemide (Lasix Inj) 20 mg Q8H IV PUSH Last administered on 01/12/17 12:00; Start 01/11/17 at 12:00; Stop 01/12/17 at 14:57; Status DC Potassium Bicarb/ Potassium Chloride (K-Lyte Cl Eff) 25 meq Q12HR NG Last administered on 01/11/17 20:16; Start 01/11/17 at 12:00; Stop 01/11/17 at 21:01 ; Status DC Dextrose (D50w (Vial) Inj) 50 ml UNSCH PRN IV HYPOGLYCEMIA-SEE COMMENTS; Start 01/11/17 at 12:15 Glucagon (Glucagon Inj) 1 mg UNSCH PRN OTHER HYPOGLYCEMIA-SEE COMMENTS; Start 01/11/17 at 12:15 Insulin Aspart (NovoLOG SUPPLEMENTAL SCALE) 1 ACHS SLIDING SCALE SQ Last administered on 01/14/17 21:00; Start 01/11/17 at 16:00 Multivitamins 10 ml/Folic Acid 1 mg/Amino Acids/ Electrolytes/ Dextrose 1,010.2 ml @ 30 mls/hr Q24H IV Last administered on 01/11/17 19:57; Start 01/11/17 at 20:00; Stop 01/12/17 at 16:08; Status DC Furosemide (Lasix Inj) 20 mg Q12HR IV PUSH Last administered on 01/15/17 09:20 ; Start 01/12/17 at 21:00 A/P Problem List: (1) Intractable abdominal pain ICD Code: R10.9 - Unspecified abdominal pain Status: Acute (2) Esophageal carcinoma ICD Code: C15.9 - Malignant neoplasm of esophagus, unspecified Status: Acute (3) SCC (squamous cell carcinoma) ICD Code: C44.92 - Squamous cell carcinoma of skin, unspecified Status: Acute (4) Hypokalemia ICD Code: E87.6 - Hypokalemia Status: Acute (5) Lactic acidosis ICD Code: E87.2 - Acidosis Status: Acute (6) Renal insufficiency ICD Code: N28.9 - Disorder of kidney and ureter, unspecified Status: Acute (7) Elevated troponin ICD Code: R74.8 - Abnormal levels of other serum enzymes Status: Acute (8) DM (diabetes mellitus) ICD Code: E11.9 - Type 2 diabetes mellitus without complications Status: Acute (9) Tobacco abuse ICD Code: Z72.0 - Tobacco abuse Status: Acute (10) NSTEMI (non-ST elevated myocardial infarction) ICD Code: I21.4 - Non-ST elevation (NSTEMI) myocardial infarction Status: Acute (11) Bacteremia due to Gram-positive bacteria ICD Code: R78.81 - Bacteremia Status: Acute (12) Encephalopathy, metabolic ICD Code: G93.41 - Metabolic encephalopathy Status: Acute Assessment and Plan Acute metabolic encephalopathy-resolved Possible alcohol withdrawal, improved. Chronic oxycodone use Encephalopathy most likely secondary to hypoxia, sepsis, now resolved. Completed therapy with Thiamine for EtOH withdrawal 12/05. Discontinue 01/10. Continue MVI daily. Acetaminophen for fever Currently off all sedation. On Percocet 10 q4. Oxycodone additional 5 as needed for breakthrough. Restoril 15 qhs prn sleep Acute hypoxemic respiratory failure - multifactorial, resolved History of COPD Anterior airway Tobacco abuse Bilateral pleural effusions - Emergently intubated and placed on mechanical ventilation 12/02/16, extubated 12/03/16 - Re intubated 01/01/17 PRVC ventilation 16/550/1//35. Extubated 01/06 -Now on nasal cannula. - CT chest revealed bilateral pleural effusions. Thoracentesis -1200 cc 12/30. Placement of Left #10 Jamaican pigtail catheter 01/03. Was dislodged 01/09. Placement of right #10 Jamaican pigtail catheter 01/06. -Right pleural fluid Cytology negative for malignancy 01/06 and Pleural fluid cytology negative 12/30 - Pulmonology following for chest tube management. Pericardial effusion, tamponade status post pericardiocentesis 01/01/17 Atrial fibrillation with RVR currently normal sinus rhythm NSTEMI Dynamic LVOT obstruction Coronary artery disease status post bare metal stent to left circumflex Krause 12/01 Emergency Pericardiocentesis drains -01/01. Cc. Cultures no growth. Removed drain 01/06, Followup limited Echo 01/07EF 60-65%. Trivial small pericardial effusion present Cardiac catheterization 12/01 revealed EF around 60%. Left main normal. RCA normal. LAD 70% ostial. Bare stent left circumflex 70%. Resume ASA 162 mg daily, d/c rectal ASA/ Continue Plavix 75 mg daily Continue amiodarone 200 mg by mouth every 12 hours. Continue Metoprolol 25 mill grams every 6 hours 2-D echo no veg, EF 50-55%. Mild MR, mild AR. Pseudo-outflow obstruction due to concentric hypertrophy and hyperdynamic ventricle Change Lasix to 20 g IV twice a day. KCL Effervescent 25 bid x2. Holding home medications of losartan 100 mg, amlodipine 10 mg daily, normotensive. Continue atorvastatin 40 by mouth daily for dyslipidemia. Pericardial fluid cytology 01/01 - negative for malignancy Invasive adenocarcinoma of the esophagus Liver cirrhosis - Tolerating mechanical soft, thin liquids. Speech therapy has signed off - Calorie counts being performed. -Patient's intake improving. Discontinue TPN - Has biopsy proven invasive adenocarcinoma of esophagus - Status post EUS/esophageal stent placement 12/25 Dr. Tejeda. - IV Protonix twice a day continue. - Carafate 1 g by mouth daily per her GI - Surgery removed port -Patient declined PEG. Per surgery repeat calorie count. Acute kidney failure/ATN resolved - Monitor renal function closely. Saxena catheter. -Lasix /KCL as per above Septic shock-resolved MSSA bacteremia [id number] infection status post removal Pseudomonas pneumonia - Previously Rapid clinical improvement after [id number] was removed. remains off all pressors - Catheter tip culture blood culture and wound culture also positive for MSSA - Continue Rifampin, for synergy per ID (on po now), and Ancef, Levaquin. He will need 6 weeks IV Abx . Has LUE PICC - Infectious disease Dr. Nassar. 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 Bell is following - Status post surgical resection for L parotid SCC at [facility] 10/01 - Hematology plans to give weekly Erbitux and XRT outpatient. -Transfuse as needed for hemoglobin less than 8 Hypokalemia Hypo-magnesium Diabetes Hypothyroidism Chronic prednisone use - Electrolyte replacement per protocol - On detemir 30 units every 12 hours, Continue TPN. No insulin in TPN. Change sliding scale to medium dose. ac/hs. Holding home medications of metformin 1000 mg twice a day and glipizide 20 mill grams by mouth twice a day - D/c IV synthroid and change to regular dose of 50 mcg po daily. -TSH 0.555 on admission -continue prednisone 5 mg daily 01/11. Off Solu-Medrol Sacral decubitus ulcer Wound care following. Opened to air PROPH: - No pharmacological prophylaxis secondary to hemoptysis. Will discuss with GI when we can resume prophylaxis. Patient has LE skin breakdown. Hold SCDs. - Pantoprazole 40 iv twice a day Discharge Planning Palliative care is following. Patient stated that he will remain in the hospital until he completes his treatment. He stated he continues to want everything done. Makenna Schilling MD Jan 15, 2017 12:43
[2017-01-15] MEDS: RESP: ALBUTEROL 2.5 MG/IPRATROPIUM 0.5 MG NEB (PRN) INH (15:37)
--- NOTE | 2017-01-15 17:38 | PD.WCN.NOT ---
Wound Consult Description: Follow up of wound covering bilateral buttocks, sacral, and coccyx area Communicated with: Patient Recommendation: Combine Fungal cream with Calazime skin protectant and apply BID and PRN. Do not remove all of the Calazime skin protectant when cleansing. Cleanse gently the buttocks and gluteal cleft with soap and water, careful not to remove all of the skin protectant. Apply mixture of Fungal cream and Calazime skin protectant BID and PRN to sacral, coccyx, and bilateral buttocks and leave VALERIY Continue to encourage patient to reposition every 2 hours and PRN for comfort. Additional Information: Patient seen on for follow up of bilateral buttock, sacral, and coccyx wound, all one full thickness wound without odor and without active drainage. Patient states that a dressing will not stay on due to his restlessness. After speaking with patient at great lengths with him explaining that he has had breakdown to these areas prior to admission from being out on the water most days with the salt and sand irritations, he wishes he could just take a shower and soak in vinegar and water. It was explained to him that with the moist area being so close to his rectum and the periwound being bright red with minimal satellite lesions beginning to appear that the best treatment for now would be to continue with the skin protectant and possibly mixing the Calazime with the fungal ointment as well. Patient was encouraged to leave the area open to air and when in bed to lay on his left and right sides trying to avoid laying directly on his bottom to allow the area to be open to the air. Patient is becoming more independent and is getting up and ambulating in the room during discussion, fixing his sheets on his bed and rearranging his bedside table. Moist wound bed covering bilateral buttocks, sacrum, and coccyx measures ~10cm x ~8cm x ~0.5cm of ~75% white tissue, ~ 25% pink tissue with blanching bright red periwound. Thais Ham [facility] Jan 15, 2017 17:38
--- NOTE | 2017-01-15 18:51 | HHI.PR ---
Subjective Remarks 61 YOWM with COPD,DM,AF Had Pericardial effusion and Pericardiocentesis Has Right chest tube Mild SOB No Fever Up in chair. Objective Vital Signs Vital Signs Date Time Temp Pulse Resp B/P (MAP) Pulse Ox O2 Delivery O2 Flow Rate FiO2 01/15/17 16:00 97.9 90 18 110/56 (74) 97 01/15/17 15:38 98 Nasal Cannula 2.00 01/15/17 12:00 97.6 83 18 127/60 (82) 97 01/15/17 09:10 Room Air 01/15/17 08:00 90 01/15/17 08:00 97.8 91 20 139/60 (86) 96 01/15/17 04:00 97.9 86 20 109/53 (71) 98 01/15/17 00:00 97.7 90 20 131/62 (85) 97 01/14/17 20:20 98 01/14/17 20:00 87 01/14/17 20:00 97.5 88 20 125/58 (80) 97 01/14/17 20:00 97 Room Air 01/14/17 19:37 95 I/O 01/14/17 01/14/17 01/14/17 01/15/17 01/15/17 01/15/17 06:59 14:59 22:59 06:59 14:59 22:59 Intake Total 770 ml 760 ml 530 ml 960 ml Output Total 1800 ml 500 ml 710 ml 1890 ml Balance -1030 ml 260 ml -180 ml -930 ml Intake Oral 720 ml 760 ml 480 ml 960 ml IV Total 50 ml 50 ml Output Urine Total 1600 ml 500 ml 700 ml 1600 ml Chest Tube Drainage Total 200 ml 10 ml 290 ml # Voids 2 2 # Bowel Movements 1 1 0 Result Diagram: 01/14/1715 01/14/1715 Objective Remarks GENERAL: WBWN WM,NAD SKIN: Warm and dry. HEAD: Normocephalic. EYES: No scleral icterus. No injection or drainage. NECK: Supple, trachea midline. No JVD or lymphadenopathy. CARDIOVASCULAR: Regular rate and rhythm without murmurs, gallops, or rubs. RESPIRATORY: Breath sounds equal bilaterally. No accessory muscle use. Right chest tube draining GASTROINTESTINAL: Abdomen soft, non-tender, nondistended. MUSCULOSKELETAL: No cyanosis, or edema. BACK: Nontender without obvious deformity. No CVA tenderness. A/P Assessment and Plan Right Pl effusion, s/p Chest tube placement S/P Pericardiocentesis AF CAD HTN PLAN: Cont Chest tube suction Supplement 02 Aerosol nebs OOB in Chair CXR in Chace Luna MD Jan 15, 2017 18:51
[2017-01-15] MEDS: ATORVASTATIN 40 MG TAB PO SCH (21:04)
[2017-01-15] MEDS: TEMAZEPAM 15 MG CAP PO PRN (21:08)
--- NOTE | 2017-01-15 23:03 | PD.ONC.PN ---
Subjective Subjective Remarks slow overall improvement remains weak no fevers trying to have oral intake Objective Data Date Time Temp Pulse Resp B/P (MAP) Pulse Ox O2 Delivery O2 Flow Rate FiO2 01/15/17 22:10 96 21 01/15/17 20:00 97.9 85 20 125/60 (81) 99 01/15/17 16:00 97.9 90 18 110/56 (74) 97 01/15/17 15:38 98 Nasal Cannula 2.00 01/15/17 12:00 97.6 83 18 127/60 (82) 97 01/15/17 09:10 Room Air 01/15/17 08:00 90 01/15/17 08:00 97.8 91 20 139/60 (86) 96 01/15/17 04:00 97.9 86 20 109/53 (71) 98 01/15/17 00:00 97.7 90 20 131/62 (85) 97 Result Diagram: 01/14/1715 01/14/17 0615 Administered Medications Medications (Trade) Dose Ordered Sig/Geovanny Route PRN Reason Start Time Stop Time Status Last Admin Dose Admin Sodium Chloride (NS Flush) 2 ml UNSCH PRN IV FLUSH FLUSH AFTER USING IV ACCESS 11/30/16 02:45 12/24/16 09:59 Sodium Chloride (NS Flush) 2 ml BID IV FLUSH 11/30/16 09:00 01/15/17 21:05 Senna/Docusate Sodium (Rere-Colace) 1 tab BID PO 11/30/16 09:00 01/15/17 21:05 Acetaminophen (Tylenol) 325 mg Q4H PRN PO PAIN SCALE 1 TO 2 11/30/16 13:45 12/13/16 17:13 Ondansetron HCl (Zofran Inj) 4 mg Q4H PRN IV NAUSEA 11/30/16 13:45 12/24/16 22:41 Sodium Chloride (NS Flush) 5 ml Q21D IV FLUSH 11/30/16 18:00 12/21/16 17:19 Heparin Sodium (Porcine) (Heparin Central Flush) 500 units Q21D IV FLUSH 11/30/16 18:00 11/30/16 18:04 Heparin Sodium (Porcine) (Heparin Central Flush) 250 units UNSCH PRN IV FLUSH FLUSH AFTER USING IV ACCESS 11/30/16 18:00 01/12/17 05:26 Acetaminophen (Tylenol 650 Mg/ 20 ml Liq) 650 mg Q6H PRN PO FEVER 12/01/16 17:30 12/02/16 01:07 Polyethylene Glycol (Miralax) 17 gm DAILY PO 12/04/16 09:00 01/15/17 09:19 Multivitamins (Theragran) 1 tab DAILY PO 12/05/16 09:00 01/15/17 09:20 Lorazepam (Ativan Inj) 1 mg Q4H PRN IV PUSH ANXIETY AND/OR AGITATION 12/09/16 15:15 12/31/16 14:16 Atorvastatin Calcium (Lipitor) 40 mg HS PO 12/12/16 21:00 Future hold 01/15/17 21:04 Sodium Chloride (NS Flush) See Protocol DAILY IV FLUSH 12/13/16 09:00 01/15/17 09:19 Heparin Sodium (Porcine) (Heparin Central Flush) See Protocol DAILY IV FLUSH 12/13/16 09:00 01/15/17 09:19 Sodium Chloride (NS Flush) UNSCH PRN IV FLUSH SEE PROTOCOL TABLE 12/12/16 17:00 12/19/16 01:59 Lorazepam (Ativan) 0.5 mg DAILY PRN PO ANXIETY 12/18/16 15:45 Future Hold 12/19/16 08:29 Diltiazem HCl (Cardizem) 90 mg Q6H PO 12/18/16 23:00 Future Hold 12/25/16 12:14 Digoxin (Lanoxin) 0.25 mg DAILY PO 12/22/16 09:00 Future Hold 12/25/16 08:06 Sucralfate (Carafate Liq) 1 gm ACHS PO 12/22/16 11:00 01/15/17 21:04 Metoprolol Tartrate (Lopressor Inj) 5 mg Q1HR PRN IV PUSH RAPID HEART RATE 12/22/16 09:45 12/30/16 10:37 Pantoprazole Sodium (Protonix Inj) 40 mg Q12H IV PUSH 12/22/16 10:00 01/15/17 21:05 Metoprolol Tartrate (Lopressor) 25 mg Q6HR PO 12/22/16 13:00 01/15/17 17:27 Albuterol/ Ipratropium (Duoneb Neb) 1 ampule Q2HR NEB PRN INH WHEEZING 12/25/16 21:00 01/15/17 15:37 Clopidogrel Bisulfate (Plavix) 75 mg DAILY PO 12/29/16 09:00 01/15/17 09:19 Aspirin (Ecotrin Ec) 162 mg DAILY PO 12/29/16 09:00 Future hold 01/15/17 09:19 Prednisone (Deltasone) 5 mg DAILY PO 12/29/16 09:00 Future hold 01/15/17 09:19 Chlorhexidine Gluconate (Peridex 0.12% Liq) 15 ml BID@08,20 MT 01/01/17 20:00 01/14/17 20:00 Artificial Tears (Tears Naturale Opth Soln) 1 drop Q8HR EACH EYE 01/04/17 14:00 01/15/17 21:05 Insulin Detemir (Levemir Inj) 30 units Q12HR SQ 01/06/17 21:00 01/15/17 21:18 Amiodarone HCl (Cordarone) 200 mg Q12HR PO 01/07/17 10:00 01/15/17 21:04 Levothyroxine Sodium (Synthroid) 50 mcg DAILY@0600 PO 01/11/17 06:00 01/15/17 06:57 Oxycodone/ Acetaminophen (Percocet 10-325 Mg) 1 tab Q4H PRN PO PAIN 1-10 01/10/17 14:15 01/15/17 21:07 Oxycodone HCl (Roxicodone) 5 mg Q4H PRN PO BREAKTHROUGH PAIN 01/10/17 14:15 01/12/17 23:06 Temazepam (Restoril) 15 mg HS PRN PO SLEEP 01/11/17 11:45 01/15/17 21:08 Insulin Aspart (NovoLOG SUPPLEMENTAL SCALE) 1 ACHS SLIDING SCALE SQ 01/11/17 16:00 01/15/17 21:17 Furosemide (Lasix Inj) 20 mg Q12HR IV PUSH 01/12/17 21:00 01/15/17 21:04 Objective Remarks GENERAL: nad SKIN: Warm and dry CARDIOVASCULAR: Regular rate and rhythm without murmurs. RESPIRATORY: Breath sounds equal bilaterally. No accessory muscle use. GASTROINTESTINAL: Abdomen soft, non-tender, nondistended. EXTREMITIES: No cyanosis, or edema. Assessment/Plan Problem List: (1) Esophageal adenocarcinoma ICD Codes: C15.9 - Malignant neoplasm of esophagus, unspecified Status: Acute Plan: --EUS with esophageal stent placement on 12/25 --++hemoptysis --we plan to give weekly Erbitux and XRT outpatient. --patient had OP EGD with biopsy, pathology showed adenocarcinoma. --EGD/Colonoscopy, 11/20/16--showed long stricture in the mid esophagus and distal esophagus, multiple biopsies were performed Pathology revealed invasive adenocarcinoma- distal esophagus --XRT simulation done 12/19. (2) SCC (squamous cell carcinoma) ICD Codes: C44.92 - Squamous cell carcinoma of skin, unspecified Status: Acute Plan: --has a head and neck, lung malignancy which was locally advanced. --received definitive treatment with surgery. Post surgery he had positive margins and some poor risk features and he was about to get concurrent chemotherapy and radiation and adjuvantly to achieve local control of the disease --PET scan to stage his disease prior to treatment showed an esophageal mass (3) Normocytic anemia ICD Codes: D64.9 - Anemia, unspecified Status: Acute Plan: --hgb stable --transfuse packed red blood cells if his hemoglobin drops below 8.5 --s/p iron infusion (4) Afib ICD Codes: I48.91 - Unspecified atrial fibrillation Status: Acute Plan: --cardiology following. --s/p chest tube placement --on Plavix --on ASA (5) Sepsis ICD Codes: A41.9 - Sepsis, unspecified organism Status: Resolved Plan: --BC 8.18: pending BC, 7.24 no growth BC, 12/07 no growth --BC, 12/05 +, S. Aureus --had removal of port, + S. aureus --on Cefepime (6) NSTEMI (non-ST elevated myocardial infarction) ICD Codes: I21.4 - Non-ST elevation (NSTEMI) myocardial infarction Status: Acute Plan: --had elevated troponin and ST-segment changes consistent with acute NE. 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 Also with a new diagnosis of early stage gastric cancer Plan - supportive care - PT/nutrition - Anemia- Hb slightly lower--continue to monitor - Gastric cancer treatment once more stable - Check CBC and CMP in AM Problem Qualifiers (1) Afib: (2) Sepsis: Brant Bell MD Jan 15, 2017 23:03
[2017-01-16] VITALS (7 sets, daily range): BP systolic 107–130; BP diastolic 53–63; PULSE 82–94; RESP 20; TEMP 97.4–98.2; O2SAT 97–99
[2017-01-16] MEDS: oxyCODONE/ACETAMINOPHEN 10 MG/325 MG TAB PO PRN ×5 (00:54→21:03)
[2017-01-16] MEDS: METOPROLOL TARTRATE 25 MG TAB PO SCH ×4 (00:54→17:09)
[2017-01-16] MEDS: ARTIFICIAL TEARS OPTH SOLN 15 ML BTL EACH EYE SCH ×3 (06:00→21:04)
[2017-01-16] MEDS: LEVOTHYROXINE SODIUM 50 MCG TAB PO SCH (06:15)
[2017-01-16] MEDS: SUCRALFATE 1 GM/10 ML CUP PO SCH ×4 (06:16→21:02)
[2017-01-16] MEDS: INSULIN ASPART SUPPLEMENTAL SCALE SQ SCH ×4 (06:16→21:16)
[2017-01-16 07:01] LABS: HEMATOCRIT 26.4 % (39.0-51.0); MEAN CELL VOLUME 88.5 FL (80.0-100.0); MEAN CORPUSCULAR HEMOGLOBIN 28.3 PG (27.0-34.0); MEAN CORPUSCULAR HGB CONC 31.9 % (32.0-36.0); PLATELET COUNT 218 TH/MM3 (150-450); RED BLOOD COUNT 2.98 MIL/MM3 (4.50-5.90); RED CELL DISTRIBUTION WIDTH 20.2 % (11.6-17.2); REVIEW FLAG FINAL; WHITE BLOOD COUNT 6.1 TH/MM3 (4.0-11.0)
[2017-01-16 07:24] LABS: ALT (GPT) 11 U/L (12-78); ANION GAP 6 MEQ/L (5-15); AST (GOT) 20 U/L (15-37); BICARBONATE 31.2 MEQ/L (21.0-32.0); BLOOD UREA NITROGEN 15 MG/DL (7-18); CHLORIDE 97 MEQ/L (98-107); GLOMERULAR FILTRATION RATE 183 ML/MIN (>89); POTASSIUM 4.1 MEQ/L (3.5-5.1); SODIUM (NA) 134 MEQ/L (136-145)
[2017-01-16 07:27] LABS: ALKALINE PHOSPHATASE 124 U/L (45-117); TOTAL BILIRUBIN ADULT 0.4 MG/DL (0.2-1.0)
--- NOTE | 2017-01-16 07:27 | RADRPT ---
EXAM DATE/TIME: 01/16/2017 06:35 [place] COMPARISON: No previous studies available for comparison. INDICATIONS : Short of breath, pleural effusion MEDICAL HISTORY : Hepatitis C. Hypertension Chronic obstructive pulmonary disease. SURGICAL HISTORY : Appendectomy. Coronary artery stent. ENCOUNTER: Subsequent ACUITY: 1 month PAIN SCORE: 0/10 LOCATION: Bilateral chest FINDINGS: There are diffuse bilateral parenchymal infiltrates greatest in the lower lobes and increased from th e previous study. Cardiomegaly. No definite effusions. Osseous structures are intact. CONCLUSION: Worsening airspace disease. Erik Simon MD on January 16, 2017 at 7:26 Board Certified Radiologist. This report was verified electronically.
[2017-01-16] MEDS: CHLORHEXIDINE 0.12% (ORAL KIT) 15 ML CUP MT SCH ×2 (08:00→20:00)
[2017-01-16] MEDS: SODIUM CHLORIDE 0.9% FLUSH 10 ML FLUSH IV FLUSH SCH ×3 (09:00→21:03)
[2017-01-16] MEDS: FUROSEMIDE 20 MG/2 ML VIAL IV PUSH SCH ×2 (09:32→21:02)
[2017-01-16] MEDS: DOCUSATE SODIUM 50 MG/SENNA 8.6 MG TAB PO SCH ×2 (09:33→21:00)
[2017-01-16] MEDS: POLYETHYLENE GLYCOL 17 GM PKG PO SCH (09:33)
[2017-01-16] MEDS: AMIODARONE 200 MG TAB PO SCH ×2 (09:33→21:02)
[2017-01-16] MEDS: CLOPIDOGREL 75 MG TAB PO SCH (09:33)
[2017-01-16] MEDS: MULTIVITAMIN TAB PO SCH (09:33)
[2017-01-16] MEDS: ASPIRIN EC 81 MG TABEC PO SCH (09:33)
[2017-01-16] MEDS: predniSONE 5 MG TAB PO SCH (09:33)
[2017-01-16] MEDS: INSULIN DETEMIR 100 UNITS/ML VIAL SQ SCH ×2 (09:36→21:15)
--- NOTE | 2017-01-16 10:07 | PD.ONC.PN ---
Subjective Subjective Remarks Afebrile overnight. patient resting in chair next to bed. Frustrated with still being in the hospital. wants to go home. Objective Data Date Time Temp Pulse Resp B/P (MAP) Pulse Ox O2 Delivery O2 Flow Rate FiO2 01/16/17 04:00 98.2 82 20 130/62 (84) 97 01/16/17 00:00 98.0 86 20 126/58 (80) 98 01/15/17 22:10 96 21 01/15/17 20:10 85 01/15/17 20:10 97 Room Air 01/15/17 20:00 97.9 85 20 125/60 (81) 99 01/15/17 16:00 97.9 90 18 110/56 (74) 97 01/15/17 15:38 98 Nasal Cannula 2.00 01/15/17 12:00 97.6 83 18 127/60 (82) 97 Result Diagram: 01/16/17 0600 01/16/17 06 Laboratory Results Laboratory Tests Test 01/16/17 06:00 White Blood Count 6.1 TH/MM3 Red Blood Count 2.98 MIL/MM3 Hemoglobin 8.4 GM/DL Hematocrit 26.4 % Mean Corpuscular Volume 88.5 FL Mean Corpuscular Hemoglobin 28.3 PG Mean Corpuscular Hemoglobin Concent 31.9 % Red Cell Distribution Width 20.2 % Platelet Count 218 TH/MM3 Mean Platelet Volume 8.8 FL Blood Urea Nitrogen 15 MG/DL Creatinine 0.47 MG/DL Random Glucose 119 MG/DL Total Protein 5.6 GM/DL Albumin 1.8 GM/DL Calcium Level 7.6 MG/DL Alkaline Phosphatase 124 U/L Aspartate Amino Transf (AST/SGOT) 20 U/L Alanine Aminotransferase (ALT/SGPT) 11 U/L Total Bilirubin 0.4 MG/DL Sodium Level 134 MEQ/L Potassium Level 4.1 MEQ/L Chloride Level 97 MEQ/L Carbon Dioxide Level 31.2 MEQ/L Anion Gap 6 MEQ/L Estimat Glomerular Filtration Rate 183 ML/MIN Imaging Studies Last 24 hours Impressions Chest X-Ray 01/16/17 0600 Signed Impressions: Service Date/Time: Monday, January 16, 2017 06:35 - CONCLUSION: Worsening airspace disease. Erik Simon MD Administered Medications Medications (Trade) Dose Ordered Sig/Geovanny Route PRN Reason Start Time Stop Time Status Last Admin Dose Admin Sodium Chloride (NS Flush) 2 ml UNSCH PRN IV FLUSH FLUSH AFTER USING IV ACCESS 11/30/16 02:45 12/24/16 09:59 Sodium Chloride (NS Flush) 2 ml BID IV FLUSH 11/30/16 09:00 01/16/17 09:34 Senna/Docusate Sodium (Rere-Colace) 1 tab BID PO 11/30/16 09:00 01/16/17 09:33 Acetaminophen (Tylenol) 325 mg Q4H PRN PO PAIN SCALE 1 TO 2 11/30/16 13:45 12/13/16 17:13 Ondansetron HCl (Zofran Inj) 4 mg Q4H PRN IV NAUSEA 11/30/16 13:45 12/24/16 22:41 Sodium Chloride (NS Flush) 5 ml Q21D IV FLUSH 11/30/16 18:00 12/21/16 17:19 Heparin Sodium (Porcine) (Heparin Central Flush) 500 units Q21D IV FLUSH 11/30/16 18:00 11/30/16 18:04 Heparin Sodium (Porcine) (Heparin Central Flush) 250 units UNSCH PRN IV FLUSH FLUSH AFTER USING IV ACCESS 11/30/16 18:00 01/16/17 06:25 Acetaminophen (Tylenol 650 Mg/ 20 ml Liq) 650 mg Q6H PRN PO FEVER 12/01/16 17:30 12/02/16 01:07 Polyethylene Glycol (Miralax) 17 gm DAILY PO 12/04/16 09:00 01/16/17 09:33 Multivitamins (Theragran) 1 tab DAILY PO 12/05/16 09:00 01/16/17 09:33 Lorazepam (Ativan Inj) 1 mg Q4H PRN IV PUSH ANXIETY AND/OR AGITATION 12/09/16 15:15 12/31/16 14:16 Atorvastatin Calcium (Lipitor) 40 mg HS PO 12/12/16 21:00 Future hold 01/15/17 21:04 Sodium Chloride (NS Flush) See Protocol DAILY IV FLUSH 12/13/16 09:00 01/16/17 09:00 Heparin Sodium (Porcine) (Heparin Central Flush) See Protocol DAILY IV FLUSH 12/13/16 09:00 01/16/17 09:33 Sodium Chloride (NS Flush) UNSCH PRN IV FLUSH SEE PROTOCOL TABLE 12/12/16 17:00 12/19/16 01:59 Lorazepam (Ativan) 0.5 mg DAILY PRN PO ANXIETY 12/18/16 15:45 Future Hold 12/19/16 08:29 Diltiazem HCl (Cardizem) 90 mg Q6H PO 12/18/16 23:00 Future Hold 12/25/16 12:14 Digoxin (Lanoxin) 0.25 mg DAILY PO 12/22/16 09:00 Future Hold 12/25/16 08:06 Sucralfate (Carafate Liq) 1 gm ACHS PO 12/22/16 11:00 01/16/17 06:16 Metoprolol Tartrate (Lopressor Inj) 5 mg Q1HR PRN IV PUSH RAPID HEART RATE 12/22/16 09:45 12/30/16 10:37 Pantoprazole Sodium (Protonix Inj) 40 mg Q12H IV PUSH 12/22/16 10:00 01/15/17 21:05 Metoprolol Tartrate (Lopressor) 25 mg Q6HR PO 12/22/16 13:00 01/16/17 06:15 Albuterol/ Ipratropium (Duoneb Neb) 1 ampule Q2HR NEB PRN INH WHEEZING 12/25/16 21:00 01/15/17 15:37 Clopidogrel Bisulfate (Plavix) 75 mg DAILY PO 12/29/16 09:00 01/16/17 09:33 Aspirin (Ecotrin Ec) 162 mg DAILY PO 12/29/16 09:00 Future hold 01/16/17 09:33 Prednisone (Deltasone) 5 mg DAILY PO 12/29/16 09:00 Future hold 01/16/17 09:33 Chlorhexidine Gluconate (Peridex 0.12% Liq) 15 ml BID@08,20 MT 01/01/17 20:00 01/14/17 20:00 Artificial Tears (Tears Naturale Opth Soln) 1 drop Q8HR EACH EYE 01/04/17 14:00 01/16/17 06:00 Insulin Detemir (Levemir Inj) 30 units Q12HR SQ 01/06/17 21:00 01/16/17 09:36 Amiodarone HCl (Cordarone) 200 mg Q12HR PO 01/07/17 10:00 01/16/17 09:33 Levothyroxine Sodium (Synthroid) 50 mcg DAILY@0600 PO 01/11/17 06:00 01/16/17 06:15 Oxycodone/ Acetaminophen (Percocet 10-325 Mg) 1 tab Q4H PRN PO PAIN 1-10 01/10/17 14:15 01/16/17 06:15 Oxycodone HCl (Roxicodone) 5 mg Q4H PRN PO BREAKTHROUGH PAIN 01/10/17 14:15 01/16/17 09:31 Temazepam (Restoril) 15 mg HS PRN PO SLEEP 01/11/17 11:45 01/15/17 21:08 Insulin Aspart (NovoLOG SUPPLEMENTAL SCALE) 1 ACHS SLIDING SCALE SQ 01/11/17 16:00 01/15/17 21:17 Furosemide (Lasix Inj) 20 mg Q12HR IV PUSH 01/12/17 21:00 01/16/17 09:32 Objective Remarks GENERAL: Middle aged male upright in chair next to bed in [facility]. SKIN: Warm and dry. HEAD: Normocephalic. EYES: No injection or drainage. NECK: Supple, trachea midline. CARDIOVASCULAR: +S1/S2 RESPIRATORY: Breath sounds equal bilaterally. No accessory muscle use. GASTROINTESTINAL: Abdomen soft, non-tender, nondistended. EXTREMITIES: No cyanosis. +LE edema. NEUROLOGICAL: awake and alert, normal speech. Assessment/Plan Problem List: (1) Esophageal adenocarcinoma ICD Codes: C15.9 - Malignant neoplasm of esophagus, unspecified Status: Acute Plan: --EUS with esophageal stent placement on 12/25 --++hemoptysis --we plan to give weekly Erbitux and XRT outpatient. --patient had OP EGD with biopsy, pathology showed adenocarcinoma. --EGD/Colonoscopy, 11/20/16--showed long stricture in the mid esophagus and distal esophagus, multiple biopsies were performed Pathology revealed invasive adenocarcinoma- distal esophagus --XRT simulation done 12/19. (2) SCC (squamous cell carcinoma) ICD Codes: C44.92 - Squamous cell carcinoma of skin, unspecified Status: Acute Plan: --has a head and neck, lung malignancy which was locally advanced. --received definitive treatment with surgery. Post surgery he had positive margins and some poor risk features and he was about to get concurrent chemotherapy and radiation and adjuvantly to achieve local control of the disease --PET scan to stage his disease prior to treatment showed an esophageal mass (3) Normocytic anemia ICD Codes: D64.9 - Anemia, unspecified Status: Acute Plan: --hgb stable --transfuse packed red blood cells if his hemoglobin drops below 8.5 --s/p iron infusion (4) Afib ICD Codes: I48.91 - Unspecified atrial fibrillation Status: Acute Plan: --cardiology following. --s/p chest tube placement --on Plavix --on ASA --Amiodarone (5) NSTEMI (non-ST elevated myocardial infarction) ICD Codes: I21.4 - Non-ST elevation (NSTEMI) myocardial infarction Status: Chronic Plan: --had elevated troponin and ST-segment changes consistent with acute OR. 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 Also with a new diagnosis of early stage gastric cancer Plan 1. continue supportive care 2. monitor CBC 3. plan for treatment once discharged from hospital. Attending Statement The exam, history, and the medical decision-making described in the above note were completed with the assistance of the mid-level provider. I reviewed and agree with the findings presented. I attest that I had a [id number] encounter with the patient on the same day, and personally performed and documented my assessment and findings in the medical record. feels weak and Hb declining will give one unit of pRBC Lasix 20 mg post transfusion d.w rn o/n events reviewed Problem Qualifiers (1) Afib: Perla Duran Jan 16, 2017 10:07 Brant Bell MD Jan 16, 2017 22:15
--- NOTE | 2017-01-16 10:47 | HHI.PR ---
Subjective Remarks Follow up visit chest tube management, pericardial effusion, invasive adenocarcinoma of the esophagus, liver cirrhosis. Patient seen and examined today sitting out of bed to chair. States he feels a lot better today because he was able to wash himself in the shower. States he's been eating but does not really like the food that is being served to him. Relates that he is a good cook and that he doesn't like the taste of the food. States that he takes all the supplement drinks. Requesting to go home or to a senior living facility as soon as possible. Reports occasional shortness of breath with exertion. States that his chest tube has not been changed since it was placed. Discussed with patient that Chest tube is a closed system and that it only needs to be changed with it is full. Denies pain and discomfort. Denies chest pain, palpitations, headaches, dizziness. Denies fevers, chills, n/v/d. Denies dysuria. Objective Vitals Vital Signs Date Time Temp Pulse Resp B/P (MAP) Pulse Ox O2 Delivery O2 Flow Rate FiO2 01/16/17 04:00 98.2 82 20 130/62 (84) 97 01/16/17 00:00 98.0 86 20 126/58 (80) 98 01/15/17 22:10 96 21 01/15/17 20:10 85 01/15/17 20:10 97 Room Air 01/15/17 20:00 97.9 85 20 125/60 (81) 99 01/15/17 16:00 97.9 90 18 110/56 (74) 97 01/15/17 15:38 98 Nasal Cannula 2.00 01/15/17 12:00 97.6 83 18 127/60 (82) 97 I/O 01/15/17 01/15/17 01/15/17 01/16/17 01/16/17 01/16/17 06:59 14:59 22:59 06:59 14:59 22:59 Intake Total 530 ml 960 ml Output Total 710 ml 1890 ml Balance -180 ml -930 ml Intake Oral 480 ml 960 ml IV Total 50 ml Output Urine Total 700 ml 1600 ml Chest Tube Drainage Total 10 ml 290 ml # Voids 2 # Bowel Movements 0 Result Diagram: 01/16/17 0600 01/16/17 0600 Imaging Last Impressions Chest X-Ray 01/16/17 0600 Signed Impressions: Service Date/Time: Monday, January 16, 2017 06:35 - CONCLUSION: Worsening airspace disease. Erik Simon MD Lower Extremity Ultrasound 01/09/17 0000 Signed Impressions: Service Date/Time: Monday, January 09, 2017 13:01 - CONCLUSION: No DVT is identified within the left lower extremity. Washington Marroquin MD Abdomen X-Ray 01/07/17 0000 Signed Impressions: Service Date/Time: Saturday, January 07, 2017 11:56 - CONCLUSION: Visualized portions of the lower chest demonstrate a presumed esophageal stent. Erik Simon MD Head CT 01/04/17 0000 Signed Impressions: Service Date/Time: Thursday, January 05, 2017 03:41 - CONCLUSION: 1. No acute intracranial abnormalities. Fluid in the mastoid air cells characteristic of mastoiditis. Kervin Krause MD CT Angiography 12/31/16 0000 Signed Impressions: Service Date/Time: Saturday, December 31, 2016 01:00 - CONCLUSION: 1. Study is negative for pulmonary embolism. 2. Pericardial effusion, diffuse patchy consolidation in both lungs, collapse left lower lobe, bilateral pleural effusions, esophageal stent, similar to yesterday's CT thorax. Kulwant Gupta MD Thoracentesis 12/30/16 0000 Signed Impressions: Service Date/Time: Friday, December 30, 2016 15:34 - CONCLUSION: Uncomplicated CT-guided thoracentesis. Kiran Harding MD Chest CT 12/29/16 0000 Signed Impressions: Service Date/Time: Friday, December 30, 2016 10:56 - CONCLUSION: 1. Moderate bilateral pleural effusions. 2. Areas of consolidation in the upper lobes bilaterally and in the right middle and right lower lobe. There is some combination of consolidation and atelectasis seen in the left lower lobe. Underlying diffuse processes should be considered including edema. 3. Esophageal stent in place. There is increased density within the stent which could be from fluid or soft tissue. 4. Non-specific mildly prominent lymph nodes in the mediastinum. 5. Moderate pericardial effusion. 6. Possible 3rd non-displaced right rib fracture. Washington Chou MD GI Procedure 12/25/16 0000 Signed Impressions: Service Date/Time: December 19:33 - CONCLUSION: Spot film as above. Everett Pollock MD FACR Barium Swallow X-Ray 12/20/16 0000 Signed Impressions: Service Date/Time: Tuesday, December 20, 2016 13:15 - CONCLUSION: 1. The distal half of the esophagus demonstrates irregular luminal narrowing consistent with the patient's history of esophageal adenocarcinoma. 2. Mild dilatation of the esophagus immediately proximal to the esophageal mass. However, there are no signs of obstruction. 3. Small hiatal hernia. Washington Marroquin MD Abdomen MRI 12/17/16 0000 Signed Impressions: Service Date/Time: Saturday, December 17, 2016 13:59 - CONCLUSION: 1. No acute finding is identified to explain the abdominal pain. 2. Stable thickening of the distal esophagus. There is a single mildly enlarged left gastric lymph node measuring 12 x 10 mm. 3. Moderate sized bilateral pleural effusions, left larger than right, with associated compressive atelectasis. Washington Marroquin MD Brain MRI 12/01/16 0000 Signed Impressions: Service Date/Time: Thursday, December 01, 2016 12:07 - CONCLUSION: Normal examination. Barrett Rodriguez MD Abdomen/Pelvis CT 11/29/16 [id number] Signed Impressions: Service Date/Time: Wednesday, November 30, 2016 01:35 - CONCLUSION: 1. Markedly abnormal appearance of the distal esophagus consistent with the history of esophageal carcinoma. 2. Atherosclerotic calcifications of the aorta and iliac vessels. 3. Cirrhotic appearance to the liver with a mildly nodular contour present. Erik Simon MD Objective Remarks GENERAL: This is a well-nourished, older than stated age, in no apparent distress. SKIN: Warm and dry. Gluteal skin breakdown. HEENT: Normocephalic. Pupils equal round and reactive. Nose without bleeding. Airway patent. NECK: Trachea midline. No JVD. Supple. CARDIOVASCULAR: Irregular heart rhythm with 3/6 murmur. RESPIRATORY: No wheezing. Rales right lobe. Diminished LLL. Chest tube pigtail in place right lateral side. GASTROINTESTINAL: Abdomen soft, non-tender, nondistended. Bowel Sounds normoactive x4. MUSCULOSKELETAL: Extremities without clubbing, cyanosis, bilateral lower extremity +2 edema. NEUROLOGICAL: Awake and alert. Oriented to place, person. No focal neuro deficit. Moves all extremities. Normal speech. Procedures Right axillary art line 12/02/16 Left subclavian central venous line 12/02/16 (Dr. Delarosa) intubation 12/02/16 and 01/01/17 PCI with bare metal stent to LCx by Dr. Krause on 11/30/16 port removal 12/02/16 Dr. Rich. EUS with esophageal stent placement, food bolus removal 12/25/16 Dr. Tejeda Right thoracentesis 12/30/16 (Dr. Harding) Pericardiocentesis and pericardial drain 01/01/17 (Dr. Bueno) Placement of Left #10 [place] pigtail catheter 01/03. Was dislodged 01/09. Placement of right #10 [place] pigtail catheter 01/06 A/P Problem List: (1) Intractable abdominal pain ICD Code: R10.9 - Unspecified abdominal pain Status: Acute (2) Esophageal carcinoma ICD Code: C15.9 - Malignant neoplasm of esophagus, unspecified Status: Acute (3) SCC (squamous cell carcinoma) ICD Code: C44.92 - Squamous cell carcinoma of skin, unspecified Status: Acute (4) Hypokalemia ICD Code: E87.6 - Hypokalemia Status: Acute (5) Lactic acidosis ICD Code: E87.2 - Acidosis Status: Acute (6) Renal insufficiency ICD Code: N28.9 - Disorder of kidney and ureter, unspecified Status: Acute (7) Elevated troponin ICD Code: R74.8 - Abnormal levels of other serum enzymes Status: Acute (8) DM (diabetes mellitus) ICD Code: E11.9 - Type 2 diabetes mellitus without complications Status: Acute (9) Tobacco abuse ICD Code: Z72.0 - Tobacco abuse Status: Acute (10) NSTEMI (non-ST elevated myocardial infarction) ICD Code: I21.4 - Non-ST elevation (NSTEMI) myocardial infarction Status: Chronic (11) Bacteremia due to Gram-positive bacteria ICD Code: R78.81 - Bacteremia Status: Acute (12) Encephalopathy, metabolic ICD Code: G93.41 - Metabolic encephalopathy Status: Acute Assessment and Plan Patient is a 61-year-old male who came in to the hospital via EMS with complaints of abdominal pain and difficulty taking anything by mouth. Acute metabolic encephalopathy Encephalopathy most likely secondary to hypoxia, sepsis, now resolved. - Completed therapy with Thiamine for Possible alcohol withdrawal 12/05/16, improved. - Continue MVI daily. - Acetaminophen for fever - Currently off all sedation. On Percocet 10 q4. Oxycodone additional 5 as needed for breakthrough. - Restoril 15 qhs PRN sleep - Resolved. Patient is awake and alert. Acute hypoxemic respiratory failure - multifactorial, resolved History of COPD Anterior airway Tobacco abuse Bilateral pleural effusions - Emergently intubated and placed on mechanical ventilation 12/02/16, extubated 12/03/16 - Re intubated 01/01/17 [facility] ventilation 16/550//35. Extubated 01/06 - Now on nasal cannula. - CT chest revealed bilateral pleural effusions. Thoracentesis -1200 cc . Placement of Left #10 [place] pigtail catheter 01/03. Was dislodged 01/09. Placement of right #10 [place] pigtail catheter 01/06. - Right pleural fluid Cytology negative for malignancy 01/06 and Pleural fluid cytology negative 12/30 - Pulmonology following for chest tube management - Continues to drain serous fluid. No air leak. Patient may benefit with pleurex drain for PRN drainage is necessary. Pericardial effusion, tamponade status post pericardiocentesis 01/01/17 Atrial fibrillation with RVR currently normal sinus rhythm NSTEMI Dynamic LVOT obstruction Coronary artery disease status post bare metal stent to left circumflex Krause 12/01 - Emergency Pericardiocentesis drains -01/01. Cc. Cultures no growth. Removed drain 01/06, Followup limited Echo 01/07 EF 60-65%. Trivial small pericardial effusion present - Cardiac catheterization 12/01 revealed EF around 60%. Left main normal. RCA normal. LAD 70% ostial. Bare stent left circumflex 70%. - Resume ASA 162 mg daily, d/c rectal ASA/ Continue Plavix 75 mg daily - Continue amiodarone 200 mg by mouth every 12 hours. - Continue Metoprolol 25 mg every 6 hours - 2-D echo no veg, EF 50-55%. Mild MR, mild AR. Pseudo-outflow obstruction due to concentric hypertrophy and hyperdynamic ventricle - Continue Lasix to 20 g IV twice a day. KCL Effervescent 25 bid x2. - Holding home medications of losartan 100 mg, amlodipine 10 mg daily, normotensive. - Continue atorvastatin 40 by mouth daily for dyslipidemia. - Pericardial fluid cytology 01/01 - negative for malignancy Invasive adenocarcinoma of the esophagus Liver cirrhosis - Tolerating mechanical soft, thin liquids. Speech therapy has signed off. - Patient's intake improving. Discontinue TPN - Has biopsy proven invasive adenocarcinoma of esophagus - Status post EUS/esophageal stent placement 12/25 Dr. Tejeda. - IV Protonix twice a day continue. - Carafate 1 g by mouth daily per her GI - Surgery removed port - Patient declined PEG. Per surgery repeat calorie count. Tolerating supplements. Acute kidney failure/ATN resolved - Monitor renal function closely. Saxena catheter. - Lasix /KCL as per above Septic shock-resolved MSSA bacteremia [id number] infection status post removal Pseudomonas pneumonia - Previously Rapid clinical improvement after [id number]-[id number] was removed. remains off all pressors - Catheter tip culture blood culture and wound culture also positive for MSSA - Completed Rifampin, for synergy per ID (on po now), Completed Ancef, Levaquin. - Infectious disease Dr. Nassar. 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 Bell is following - Status post surgical resection for L parotid SCC at [facility] 10/01 - Hematology plans to give weekly Erbitux and XRT outpatient. - Transfuse as needed for hemoglobin less than 8 Hypokalemia Hypo-magnesium Diabetes Hypothyroidism Chronic prednisone use - Electrolyte replacement per protocol - On detemir 30 units every 12 hours. Change sliding scale to medium dose. ac /hs. - Holding home medications of metformin 1000 mg twice a day and glipizide 20 mill grams by mouth twice a day. - Levothyroxine 50 mcg po daily. - TSH 0.555 on admission - Continue prednisone 5 mg daily 01/11. Off Solu-Medrol Sacral decubitus ulcer - Wound care following. Open to air DVT prop - No pharmacological prophylaxis secondary to hemoptysis. Will discuss with GI when we can resume prophylaxis. Patient has LE skin breakdown. Hold SCDs skin breakdown BLE. GI Prop - Pantoprazole 40 iv twice a day Full Code Palliative care is following. Discharge Planning Patient will remain in the hospital until he completes his treatment. Will need discharge planning for SNF when treatment is completed. [facility] has accepted the patient per case management note. Nereyda uDran [facility] Jan 16, 2017 10:47
[2017-01-16] MEDS: PANTOPRAZOLE SODIUM 40 MG VIAL IV PUSH SCH ×2 (11:50→21:01)
--- NOTE | 2017-01-16 18:11 | HHI.PR ---
Subjective Remarks 61 YOWM with COPD,DM,AF Had Pericardial effusion and Pericardiocentesis Mild SOB No Fever Up in chair. Right chest tube draining Objective Vital Signs Vital Signs Date Time Temp Pulse Resp B/P (MAP) Pulse Ox O2 Delivery O2 Flow Rate FiO2 01/16/17 17:56 21 01/16/17 10:30 20 01/16/17 08:00 97.4 92 20 109/63 (78) 99 01/16/17 08:00 Nasal Cannula 01/16/17 08:00 91 01/16/17 04:00 98.2 82 20 130/62 (84) 97 01/16/17 00:00 98.0 86 20 126/58 (80) 98 01/15/17 22:10 96 21 01/15/17 20:10 85 01/15/17 20:10 97 Room Air 01/15/17 20:00 97.9 85 20 125/60 (81) 99 I/O 01/15/17 01/15/17 01/15/17 01/16/17 01/16/17 01/16/17 07:00 15:00 23:00 07:00 15:00 23:00 Intake Total 530 ml 960 ml Output Total 710 ml 1890 ml Balance -180 ml -930 ml Intake Oral 480 ml 960 ml IV Total 50 ml Output Urine Total 700 ml 1600 ml Chest Tube Drainage Total 10 ml 290 ml # Voids 2 # Bowel Movements 0 Result Diagram: 01/16/17 0600 01/16/17 0600 Objective Remarks GENERAL: WBWN WM,NAD SKIN: Warm and dry. HEAD: Normocephalic. EYES: No scleral icterus. No injection or drainage. NECK: Supple, trachea midline. No JVD or lymphadenopathy. CARDIOVASCULAR: Regular rate and rhythm without murmurs, gallops, or rubs. RESPIRATORY: Breath sounds equal bilaterally. No accessory muscle use. Right chest tube draining GASTROINTESTINAL: Abdomen soft, non-tender, nondistended. MUSCULOSKELETAL: No cyanosis, or edema. BACK: Nontender without obvious deformity. No CVA tenderness. A/P Assessment and Plan Right Pl effusion, s/p Chest tube placement S/P Pericardiocentesis AF CAD HTN PLAN: Cont Chest tube suction Supplement 02 Aerosol nebs OOB in Chair covering over weekend. Chace Luna MD Jan 16, 2017 18:11
[2017-01-16] MEDS: ATORVASTATIN 40 MG TAB PO SCH (21:02)
[2017-01-16] MEDS ORDERED: ACETAMINOPHEN 325 MG TAB PO SCH (22:30)
[2017-01-16] MEDS ORDERED: FUROSEMIDE 20 MG/2 ML VIAL IV PUSH SCH (22:30)
[2017-01-16] MEDS ORDERED: diphenhydrAMINE HCL 25 MG CAP PO SCH (22:30)
[2017-01-17] VITALS (10 sets, daily range): BP systolic 100–130; BP diastolic 49–81; PULSE 81–91; RESP 18–20; TEMP 97.2–97.9; O2SAT 95–100
[2017-01-17] MEDS: METOPROLOL TARTRATE 25 MG TAB PO SCH ×4 (00:35→16:25)
[2017-01-17] MEDS: oxyCODONE/ACETAMINOPHEN 10 MG/325 MG TAB PO PRN ×5 (02:35→20:40)
[2017-01-17] MEDS: ARTIFICIAL TEARS OPTH SOLN 15 ML BTL EACH EYE SCH ×3 (06:00→22:00)
[2017-01-17] MEDS: SUCRALFATE 1 GM/10 ML CUP PO SCH ×4 (06:37→20:25)
[2017-01-17] MEDS: INSULIN ASPART SUPPLEMENTAL SCALE SQ SCH ×4 (06:38→20:27)
[2017-01-17] MEDS: LEVOTHYROXINE SODIUM 50 MCG TAB PO SCH (06:38)
[2017-01-17] MEDS: CHLORHEXIDINE 0.12% (ORAL KIT) 15 ML CUP MT SCH ×2 (08:00→20:00)
[2017-01-17] MEDS: INSULIN DETEMIR 100 UNITS/ML VIAL SQ SCH ×2 (09:00→20:31)
[2017-01-17] MEDS: SODIUM CHLORIDE 0.9% FLUSH 10 ML FLUSH IV FLUSH SCH ×3 (09:00→20:26)
[2017-01-17] MEDS: POLYETHYLENE GLYCOL 17 GM PKG PO SCH (09:00)
[2017-01-17] MEDS: FUROSEMIDE 20 MG/2 ML VIAL IV PUSH SCH ×2 (09:13→20:26)
[2017-01-17] MEDS: CLOPIDOGREL 75 MG TAB PO SCH (09:14)
[2017-01-17] MEDS: ASPIRIN EC 81 MG TABEC PO SCH (09:14)
[2017-01-17] MEDS: predniSONE 5 MG TAB PO SCH (09:14)
[2017-01-17] MEDS: MULTIVITAMIN TAB PO SCH (09:14)
[2017-01-17] MEDS: DOCUSATE SODIUM 50 MG/SENNA 8.6 MG TAB PO SCH ×2 (09:14→20:27)
[2017-01-17] MEDS: AMIODARONE 200 MG TAB PO SCH ×2 (09:14→20:27)
[2017-01-17] MEDS: PANTOPRAZOLE SODIUM 40 MG VIAL IV PUSH SCH ×2 (10:10→22:00)
--- NOTE | 2017-01-17 16:50 | HHI.PR ---
Subjective Remarks Pt frustrated and would like to go home. has some discomfort at the location of the chest tube. Denies any worsening SOB, nausea or vomiting. Objective Vitals Vital Signs Date Time Temp Pulse Resp B/P (MAP) Pulse Ox O2 Delivery O2 Flow Rate FiO2 01/17/17 16:05 97.7 84 20 100/49 (66) 100 01/17/17 12:10 97.9 90 20 123/60 (81) 99 01/17/17 09:00 98 Nasal Cannula 2.00 01/17/17 08:05 97.6 81 20 100/50 (67) 97 01/17/17 06:36 97.7 85 20 109/53 95 01/17/17 04:00 97.2 87 20 119/53 (75) 96 01/17/17 02:41 97.5 84 18 109/56 96 01/17/17 02:26 97.9 81 18 113/81 97 01/17/17 00:00 97.4 83 20 101/52 (68) 100 01/16/17 20:00 98.2 86 20 126/56 (79) 99 01/16/17 19:59 86 01/16/17 19:41 Nasal Cannula 2.00 01/16/17 17:56 21 I/O 01/16/17 01/16/17 01/16/17 01/17/17 01/17/17 01/17/17 06:59 14:59 22:59 06:59 14:59 22:59 Intake Total 720 ml 770 ml Output Total 1100 ml 700 ml 1450 ml Balance -1100 ml 20 ml -680 ml Intake Oral 720 ml 480 ml Packed Cells 250 ml Blood Product IV Normal Saline Flush 40 ml Output Urine Total 700 ml 1450 ml Chest Tube Drainage Total 1100 ml # Bowel Movements 0 0 Result Diagram: 01/16/17 0600 01/16/17 06 Imaging Last Impressions Chest X-Ray 01/16/17 06 Signed Impressions: Service Date/Time: Monday, January 16, 2017 06:35 - CONCLUSION: Worsening airspace disease. Erik Simon MD Lower Extremity Ultrasound 01/09/17 0000 Signed Impressions: Service Date/Time: Monday, January 09, 2017 13:01 - CONCLUSION: No DVT is identified within the left lower extremity. Washington Marroquin MD Abdomen X-Ray 01/07/17 0000 Signed Impressions: Service Date/Time: Saturday, January 07, 2017 11:56 - CONCLUSION: Visualized portions of the lower chest demonstrate a presumed esophageal stent. Erik Simon MD Head CT 01/04/17 0000 Signed Impressions: Service Date/Time: Thursday, January 05, 2017 03:41 - CONCLUSION: 1. No acute intracranial abnormalities. Fluid in the mastoid air cells characteristic of mastoiditis. Kervin Krause MD CT Angiography 12/31/16 0000 Signed Impressions: Service Date/Time: Saturday, December 31, 2016 01:00 - CONCLUSION: 1. Study is negative for pulmonary embolism. 2. Pericardial effusion, diffuse patchy consolidation in both lungs, collapse left lower lobe, bilateral pleural effusions, esophageal stent, similar to yesterday's CT thorax. Kulwant Gupta MD Thoracentesis 12/30/16 0000 Signed Impressions: Service Date/Time: Friday, December 30, 2016 15:34 - CONCLUSION: Uncomplicated CT-guided thoracentesis. Kiran Harding MD Chest CT 12/29/16 0000 Signed Impressions: Service Date/Time: Friday, December 30, 2016 10:56 - CONCLUSION: 1. Moderate bilateral pleural effusions. 2. Areas of consolidation in the upper lobes bilaterally and in the right middle and right lower lobe. There is some combination of consolidation and atelectasis seen in the left lower lobe. Underlying diffuse processes should be considered including edema. 3. Esophageal stent in place. There is increased density within the stent which could be from fluid or soft tissue. 4. Non-specific mildly prominent lymph nodes in the mediastinum. 5. Moderate pericardial effusion. 6. Possible 3rd non-displaced right rib fracture. Washington Chou MD GI Procedure 12/25/16 0000 Signed Impressions: Service Date/Time: December 19:33 - CONCLUSION: Spot film as above. Everett Pollock MD FACR Barium Swallow X-Ray 12/20/16 0000 Signed Impressions: Service Date/Time: Tuesday, December 20, 2016 13:15 - CONCLUSION: 1. The distal half of the esophagus demonstrates irregular luminal narrowing consistent with the patient's history of esophageal adenocarcinoma. 2. Mild dilatation of the esophagus immediately proximal to the esophageal mass. However, there are no signs of obstruction. 3. Small hiatal hernia. Washington Marroquin MD Abdomen MRI 12/17/16 0000 Signed Impressions: Service Date/Time: Saturday, December 17, 2016 13:59 - CONCLUSION: 1. No acute finding is identified to explain the abdominal pain. 2. Stable thickening of the distal esophagus. There is a single mildly enlarged left gastric lymph node measuring 12 x 10 mm. 3. Moderate sized bilateral pleural effusions, left larger than right, with associated compressive atelectasis. Washington Marroquin MD Brain MRI 12/01/16 0000 Signed Impressions: Service Date/Time: Thursday, December 01, 2016 12:07 - CONCLUSION: Normal examination. Barrett Rodriguez MD Abdomen/Pelvis CT 11/29/16 0816 Signed Impressions: Service Date/Time: Wednesday, November 30, 2016 01:35 - CONCLUSION: 1. Markedly abnormal appearance of the distal esophagus consistent with the history of esophageal carcinoma. 2. Atherosclerotic calcifications of the aorta and iliac vessels. 3. Cirrhotic appearance to the liver with a mildly nodular contour present. Erik Simon MD Objective Remarks GENERAL: sitting on side of bed, appears somewhat comfortable CARDIOVASCULAR: tachycardic ? irregular w 2/6 murmur. RESPIRATORY: Clear to auscultation. Breath sounds equal bilaterally. No wheezes. right chest tube to suction GASTROINTESTINAL: Abdomen soft, non-tender, nondistended. MUSCULOSKELETAL: sitting up on side of bed, able to move his upper extremities. NEURO: awake, alert , answers questions PSYCH: calm, pleasant. not agitated Procedures Right axillary art line 12/02/16 Left subclavian central venous line 12/02/16 (Dr. Delarosa) intubation 12/02/16 and 01/01/17 PCI with bare metal stent to LCx by Dr. Krause on 11/30/16 port removal 12/02/16 Dr. Rich. EUS with esophageal stent placement, food bolus removal 12/25/16 Dr. Tejeda Right thoracentesis 12/30/16 (Dr. Harding) Pericardiocentesis and pericardial drain 01/01/17 (Dr. Bueno) Placement of Left #10 Tongan pigtail catheter 01/03. Was dislodged 01/09. Placement of right #10 Tongan pigtail catheter 01/06 A/P Problem List: (1) Intractable abdominal pain ICD Code: R10.9 - Unspecified abdominal pain Status: Acute (2) Esophageal carcinoma ICD Code: C15.9 - Malignant neoplasm of esophagus, unspecified Status: Acute (3) SCC (squamous cell carcinoma) ICD Code: C44.92 - Squamous cell carcinoma of skin, unspecified Status: Acute (4) Hypokalemia ICD Code: E87.6 - Hypokalemia Status: Acute (5) Lactic acidosis ICD Code: E87.2 - Acidosis Status: Acute (6) Renal insufficiency ICD Code: N28.9 - Disorder of kidney and ureter, unspecified Status: Acute (7) Elevated troponin ICD Code: R74.8 - Abnormal levels of other serum enzymes Status: Acute (8) DM (diabetes mellitus) ICD Code: E11.9 - Type 2 diabetes mellitus without complications Status: Acute (9) Tobacco abuse ICD Code: Z72.0 - Tobacco abuse Status: Acute (10) NSTEMI (non-ST elevated myocardial infarction) ICD Code: I21.4 - Non-ST elevation (NSTEMI) myocardial infarction Status: Chronic (11) Bacteremia due to Gram-positive bacteria ICD Code: R78.81 - Bacteremia Status: Acute (12) Encephalopathy, metabolic ICD Code: G93.41 - Metabolic encephalopathy Status: Acute Assessment and Plan Patient is a 61-year-old male who came in to the hospital via EMS with complaints of abdominal pain and difficulty taking anything by mouth. Acute metabolic encephalopathy Encephalopathy most likely secondary to hypoxia, sepsis, now resolved. - Completed therapy with Thiamine for Possible alcohol withdrawal 12/05/16, improved. - Continue MVI daily. - Acetaminophen for fever - Currently off all sedation. On Percocet 10 q4. Oxycodone additional 5 as needed for breakthrough. - Restoril 15 qhs PRN sleep - Resolved. Patient is awake and alert. Acute hypoxemic respiratory failure - multifactorial, resolved History of COPD Anterior airway Tobacco abuse Bilateral pleural effusions - Emergently intubated and placed on mechanical ventilation 12/02/16, extubated 12/03/16 - Re intubated 01/01/17 PRVC ventilation 16/550/1/5/35. Extubated 01/06 - Now on nasal cannula. - CT chest revealed bilateral pleural effusions. Thoracentesis -1200 cc . Placement of Left #10 Tongan pigtail catheter 01/03. Was dislodged 01/09. Placement of right #10 Tongan pigtail catheter 01/06. - Right pleural fluid Cytology negative for malignancy 01/06 and Pleural fluid cytology negative 12/30 - Pulmonology following for chest tube management - Continues to drain serous fluid. No air leak. Patient may benefit with pleurex drain for PRN drainage is necessary. Pericardial effusion, tamponade status post pericardiocentesis 01/01/17 Atrial fibrillation with RVR currently normal sinus rhythm NSTEMI Dynamic LVOT obstruction Coronary artery disease status post bare metal stent to left circumflex Krause 12/01 - Emergency Pericardiocentesis drains -01/01. Cc. Cultures no growth. Removed drain 01/06, Followup limited Echo 01/07 EF 60-65%. Trivial small pericardial effusion present - Cardiac catheterization 12/01 revealed EF around 60%. Left main normal. RCA normal. LAD 70% ostial. Bare stent left circumflex 70%. - Resume ASA 162 mg daily, d/c rectal ASA/ Continue Plavix 75 mg daily - Continue amiodarone 200 mg by mouth every 12 hours. - Continue Metoprolol 25 mg every 6 hours - 2-D echo no veg, EF 50-55%. Mild MR, mild AR. Pseudo-outflow obstruction due to concentric hypertrophy and hyperdynamic ventricle - Continue Lasix to 20 g IV twice a day. KCL Effervescent 25 bid x2. - Holding home medications of losartan 100 mg, amlodipine 10 mg daily, normotensive. - Continue atorvastatin 40 by mouth daily for dyslipidemia. - Pericardial fluid cytology 01/01 - negative for malignancy Invasive adenocarcinoma of the esophagus Liver cirrhosis - Tolerating mechanical soft, thin liquids. Speech therapy has signed off. - Patient's intake improving. Discontinue TPN - Has biopsy proven invasive adenocarcinoma of esophagus - Status post EUS/esophageal stent placement 12/25 Dr. Tejeda. - IV Protonix twice a day continue. - Carafate 1 g by mouth daily per her GI - Surgery removed port - Patient declined PEG. Per surgery repeat calorie count. Tolerating supplements. Acute kidney failure/ATN resolved - Monitor renal function closely. Saxena catheter. - Lasix /KCL as per above Septic shock-resolved MSSA bacteremia [id number] infection status post removal Pseudomonas pneumonia - Previously Rapid clinical improvement after Fposcq-d-[id number] was removed. remains off all pressors - Catheter tip culture blood culture and wound culture also positive for MSSA - Completed Rifampin, for synergy per ID (on po now), Completed Ancef, Levaquin. - Infectious disease Dr. Nassar. 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 Bell is following - Status post surgical resection for L parotid SCC at [facility] 10/01 - Hematology plans to give weekly Erbitux and XRT outpatient. - Transfuse as needed for hemoglobin less than 8 Hypokalemia Hypo-magnesium Diabetes Hypothyroidism Chronic prednisone use - Electrolyte replacement per protocol - On detemir 30 units every 12 hours. Change sliding scale to medium dose. ac /hs. - Holding home medications of metformin 1000 mg twice a day and glipizide 20 mill grams by mouth twice a day. - Levothyroxine 50 mcg po daily. - TSH 0.555 on admission - Continue prednisone 5 mg daily 01/11. Off Solu-Medrol Sacral decubitus ulcer - Wound care following. Open to air DVT prop - No pharmacological prophylaxis secondary to hemoptysis. Will discuss with GI when we can resume prophylaxis. Patient has LE skin breakdown. Hold SCDs skin breakdown BLE. GI Prop - Pantoprazole 40 iv twice a day Full Code Palliative care is following. Discharge Planning Chest tube being managed by pulkendy. Guadalupe Carter MD Jan 17, 2017 16:50
[2017-01-17 18:58] LABS: AUTOMATED NEUTROPHIL # 4.5 TH/MM3 (1.8-7.7); BASOPHIL % 0.6 % (0.0-2.0); EOSINOPHIL # 0.1 TH/MM3 (0-0.4); EOSINOPHIL % 1.9 % (0.0-4.0); HEMATOCRIT 29.6 % (39.0-51.0); LYMPH % 20.8 % (9.0-44.0); LYMPHOCYTE # 1.4 TH/MM3 (1.0-4.8); MEAN CELL VOLUME 88.2 FL (80.0-100.0); MEAN CORPUSCULAR HEMOGLOBIN 29.1 PG (27.0-34.0); MONO % 9.3 % (0.0-8.0); NEUT % 67.4 % (16.0-70.0); PLATELET COUNT 243 TH/MM3 (150-450); RED BLOOD COUNT 3.36 MIL/MM3 (4.50-5.90); RED CELL DISTRIBUTION WIDTH 19.4 % (11.6-17.2); WHITE BLOOD COUNT 6.6 TH/MM3 (4.0-11.0)
[2017-01-17 19:02] LABS: HEMO FLAGS AUTO DIFF
--- NOTE | 2017-01-17 19:13 | RADRPT ---
EXAM DATE/TIME: 01/17/2017 18:42 [facility] COMPARISON: CHEST SINGLE AP, January 16, 2017, 6:35. INDICATIONS : Chest pain and shortness of breath. Followup pulmonary infiltrates and effusions.. MEDICAL HISTORY : None. SURGICAL HISTORY : None. ENCOUNTER: Subsequent ACUITY: 3 days PAIN SCORE: 6/10 LOCATION: Bilateral chest FINDINGS: A single AP portable erect view of the chest was obtained and demonstrates an interval decrease in th e bilateral pulmonary infiltrates with mild hazy residual. More consolidative opacity is noted at the left lung base with obscuration of the left hemidiaphragm and blunting of the left costophrenic angl e. The heart size remains moderately enlarged with a globular configuration. The bony thorax is intac t. There is a left-sided PICC line again noted. CONCLUSION: 1. Interval improvement in bilateral pulmonary infiltrates. 2. More consolidative opacity is present at the left lung base without significant change. 3. Small left effusion without significant change. Bebeto Serrano MD on January 17, 2017 at 19:09 Board Certified Radiologist. This report was verified electronically.
[2017-01-17 19:20] LABS: BICARBONATE 32.3 MEQ/L (21.0-32.0); POTASSIUM 4.4 MEQ/L (3.5-5.1)
[2017-01-17 19:38] LABS: OVALOCYTES 1+ (NORMAL)
[2017-01-17 19:39] LABS: PLATELET ESTIMATE SMEAR NORMAL (NORMAL); PLATELET MORPHOLOGY NORMAL (NORMAL); SCAN/DIFF AUTO DIFF CONFIRMED
[2017-01-17] MEDS: ATORVASTATIN 40 MG TAB PO SCH (20:27)
[2017-01-18] VITALS (9 sets, daily range): BP systolic 105–119; BP diastolic 51–58; PULSE 77–90; RESP 18–21; TEMP 97.3–98.2; O2SAT 94–100
[2017-01-18] MEDS: METOPROLOL TARTRATE 25 MG TAB PO SCH ×4 (00:50→16:59)
[2017-01-18] MEDS: TEMAZEPAM 15 MG CAP PO PRN ×2 (01:22→20:39)
[2017-01-18] MEDS: LEVOTHYROXINE SODIUM 50 MCG TAB PO SCH (05:30)
[2017-01-18] MEDS: oxyCODONE/ACETAMINOPHEN 10 MG/325 MG TAB PO PRN ×3 (05:30→19:03)
[2017-01-18] MEDS: SUCRALFATE 1 GM/10 ML CUP PO SCH ×4 (05:30→20:39)
[2017-01-18] MEDS: ARTIFICIAL TEARS OPTH SOLN 15 ML BTL EACH EYE SCH ×3 (06:00→20:41)
[2017-01-18] MEDS: INSULIN ASPART SUPPLEMENTAL SCALE SQ SCH ×4 (06:57→20:50)
[2017-01-18 07:50] LABS: BICARBONATE 34.2 MEQ/L (21.0-32.0); POTASSIUM 4.3 MEQ/L (3.5-5.1)
[2017-01-18] MEDS: CHLORHEXIDINE 0.12% (ORAL KIT) 15 ML CUP MT SCH ×2 (08:00→20:00)
[2017-01-18] MEDS: SODIUM CHLORIDE 0.9% FLUSH 10 ML FLUSH IV FLUSH SCH ×3 (08:26→20:41)
[2017-01-18] MEDS: CLOPIDOGREL 75 MG TAB PO SCH (08:27)
[2017-01-18] MEDS: FUROSEMIDE 20 MG/2 ML VIAL IV PUSH SCH ×2 (08:27→20:41)
[2017-01-18] MEDS: ASPIRIN EC 81 MG TABEC PO SCH (08:28)
[2017-01-18] MEDS: MULTIVITAMIN TAB PO SCH (08:28)
[2017-01-18] MEDS: predniSONE 5 MG TAB PO SCH (08:28)
[2017-01-18] MEDS: DOCUSATE SODIUM 50 MG/SENNA 8.6 MG TAB PO SCH ×2 (08:29→20:39)
[2017-01-18] MEDS: INSULIN DETEMIR 100 UNITS/ML VIAL SQ SCH ×2 (08:29→20:51)
[2017-01-18] MEDS: POLYETHYLENE GLYCOL 17 GM PKG PO SCH (08:29)
[2017-01-18] MEDS: AMIODARONE 200 MG TAB PO SCH ×2 (08:29→20:39)
[2017-01-18] MEDS: PANTOPRAZOLE SODIUM 40 MG VIAL IV PUSH SCH ×2 (08:30→20:54)
--- NOTE | 2017-01-18 14:23 | HHI.PR ---
Subjective Remarks Pt states that he feels a lot better today. took a shower waist down and that "made a big difference". He has visitors today and is planning what he would like to do after he gets discharged. he denies any CP/worsening SOB/n/v Objective Vitals Vital Signs Date Time Temp Pulse Resp B/P (MAP) Pulse Ox O2 Delivery O2 Flow Rate FiO2 01/18/17 12:33 97.6 87 21 105/53 (70) 95 01/18/17 09:00 96 Room Air 01/18/17 08:11 98.0 77 20 106/51 (69) 95 01/18/17 07:53 96 01/18/17 04:00 97.6 86 18 119/58 (78) 94 01/18/17 00:00 97.7 85 18 108/54 (72) 97 01/17/17 20:00 Nasal Cannula 2.00 01/17/17 20:00 97.4 87 18 130/55 (80) 100 01/17/17 20:00 91 01/17/17 16:05 97.7 84 20 100/49 (66) 100 I/O 01/17/17 01/17/17 01/17/17 01/18/17 01/18/17 01/18/17 07:00 15:00 23:00 07:00 15:00 23:00 Intake Total 770 ml 840 ml 600 ml Output Total 1450 ml 2750 ml 750 ml Balance -680 ml -1910 ml -150 ml Intake Oral 480 ml 840 ml 600 ml Packed Cells 250 ml Blood Product IV Normal Saline Flush 40 ml Output Urine Total 1450 ml 900 ml 400 ml Chest Tube Drainage Total 1850 ml 350 ml # Bowel Movements 0 1 1 Result Diagram: 01/17/17 1845 01/18/17 0630 Imaging Last Impressions Chest X-Ray 01/17/17 0000 Signed Impressions: Service Date/Time: Tuesday, January 17, 2017 18:42 - CONCLUSION: 1. Interval improvement in bilateral pulmonary infiltrates. 2. More consolidative opacity is present at the left lung base without significant change. 3. Small left effusion without significant change. Bebeto Serrano MD Lower Extremity Ultrasound 01/09/17 0000 Signed Impressions: Service Date/Time: Monday, January 09, 2017 13:01 - CONCLUSION: No DVT is identified within the left lower extremity. Washington Marroquin MD Abdomen X-Ray 01/07/17 0000 Signed Impressions: Service Date/Time: Saturday, January 07, 2017 11:56 - CONCLUSION: Visualized portions of the lower chest demonstrate a presumed esophageal stent. Erik Simon MD Head CT 01/04/17 0000 Signed Impressions: Service Date/Time: Thursday, January 05, 2017 03:41 - CONCLUSION: 1. No acute intracranial abnormalities. Fluid in the mastoid air cells characteristic of mastoiditis. Kervin Krause MD CT Angiography 12/31/16 0000 Signed Impressions: Service Date/Time: Saturday, December 31, 2016 01:00 - CONCLUSION: 1. Study is negative for pulmonary embolism. 2. Pericardial effusion, diffuse patchy consolidation in both lungs, collapse left lower lobe, bilateral pleural effusions, esophageal stent, similar to yesterday's CT thorax. Kulwant Gupta MD Thoracentesis 12/30/16 0000 Signed Impressions: Service Date/Time: Friday, December 30, 2016 15:34 - CONCLUSION: Uncomplicated CT-guided thoracentesis. Kiran Harding MD Chest CT 12/29/16 0000 Signed Impressions: Service Date/Time: Friday, December 30, 2016 10:56 - CONCLUSION: 1. Moderate bilateral pleural effusions. 2. Areas of consolidation in the upper lobes bilaterally and in the right middle and right lower lobe. There is some combination of consolidation and atelectasis seen in the left lower lobe. Underlying diffuse processes should be considered including edema. 3. Esophageal stent in place. There is increased density within the stent which could be from fluid or soft tissue. 4. Non-specific mildly prominent lymph nodes in the mediastinum. 5. Moderate pericardial effusion. 6. Possible 3rd non-displaced right rib fracture. Washington Chou MD GI Procedure 12/25/16 0000 Signed Impressions: Service Date/Time: December 19:33 - CONCLUSION: Spot film as above. Everett Pollock MD FACR Barium Swallow X-Ray 12/20/16 0000 Signed Impressions: Service Date/Time: Tuesday, December 20, 2016 13:15 - CONCLUSION: 1. The distal half of the esophagus demonstrates irregular luminal narrowing consistent with the patient's history of esophageal adenocarcinoma. 2. Mild dilatation of the esophagus immediately proximal to the esophageal mass. However, there are no signs of obstruction. 3. Small hiatal hernia. Washington Marroquin MD Abdomen MRI 12/17/16 0000 Signed Impressions: Service Date/Time: Saturday, December 17, 2016 13:59 - CONCLUSION: 1. No acute finding is identified to explain the abdominal pain. 2. Stable thickening of the distal esophagus. There is a single mildly enlarged left gastric lymph node measuring 12 x 10 mm. 3. Moderate sized bilateral pleural effusions, left larger than right, with associated compressive atelectasis. Washington Marroquin MD Brain MRI 12/01/16 0000 Signed Impressions: Service Date/Time: Thursday, December 01, 2016 12:07 - CONCLUSION: Normal examination. Barrett Rodriguez MD Abdomen/Pelvis CT 11/29/16 3146 Signed Impressions: Service Date/Time: Wednesday, November 30, 2016 01:35 - CONCLUSION: 1. Markedly abnormal appearance of the distal esophagus consistent with the history of esophageal carcinoma. 2. Atherosclerotic calcifications of the aorta and iliac vessels. 3. Cirrhotic appearance to the liver with a mildly nodular contour present. Erik Simon MD Objective Remarks GENERAL: sitting on side of bed, appears somewhat comfortable CARDIOVASCULAR: tachycardic ? irregular w 2/6 murmur. RESPIRATORY: Clear to auscultation. Breath sounds equal bilaterally. No wheezes. right chest tube to suction GASTROINTESTINAL: Abdomen soft, non-tender, nondistended. MUSCULOSKELETAL: laying in bed, able to move his upper extremities. NEURO: awake, alert , answers questions PSYCH: calm, pleasant. not agitated Procedures Right axillary art line 12/02/16 Left subclavian central venous line 12/02/16 (Dr. Delarosa) intubation 12/02/16 and 01/01/17 PCI with bare metal stent to LCx by Dr. Krause on 11/30/16 port removal 12/02/16 Dr. Rich. EUS with esophageal stent placement, food bolus removal 12/25/16 Dr. Tejeda Right thoracentesis 12/30/16 (Dr. Harding) Pericardiocentesis and pericardial drain 01/01/17 (Dr. Bueno) Placement of Left #10 [place] pigtail catheter 01/03. Was dislodged 01/09. Placement of right #10 [place] pigtail catheter 01/06 A/P Problem List: (1) Intractable abdominal pain ICD Code: R10.9 - Unspecified abdominal pain Status: Acute (2) Esophageal carcinoma ICD Code: C15.9 - Malignant neoplasm of esophagus, unspecified Status: Acute (3) SCC (squamous cell carcinoma) ICD Code: C44.92 - Squamous cell carcinoma of skin, unspecified Status: Acute (4) Hypokalemia ICD Code: E87.6 - Hypokalemia Status: Acute (5) Lactic acidosis ICD Code: E87.2 - Acidosis Status: Acute (6) Renal insufficiency ICD Code: N28.9 - Disorder of kidney and ureter, unspecified Status: Acute (7) Elevated troponin ICD Code: R74.8 - Abnormal levels of other serum enzymes Status: Acute (8) DM (diabetes mellitus) ICD Code: E11.9 - Type 2 diabetes mellitus without complications Status: Acute (9) Tobacco abuse ICD Code: Z72.0 - Tobacco abuse Status: Acute (10) NSTEMI (non-ST elevated myocardial infarction) ICD Code: I21.4 - Non-ST elevation (NSTEMI) myocardial infarction Status: Chronic (11) Bacteremia due to Gram-positive bacteria ICD Code: R78.81 - Bacteremia Status: Acute (12) Encephalopathy, metabolic ICD Code: G93.41 - Metabolic encephalopathy Status: Acute Assessment and Plan Medical management 01/18/17: Continue current management. Chest tube still present and being managed by pulm. Awaiting for their recs on when CT can be removed. For now pt to remain in hospital until then. Vitals have been stable. BMP reviewed and Na stable at 135. Continue to monitor. Patient is a 61-year-old male who came in to the hospital via EMS with complaints of abdominal pain and difficulty taking anything by mouth. Acute metabolic encephalopathy Encephalopathy most likely secondary to hypoxia, sepsis, now resolved. - Completed therapy with Thiamine for Possible alcohol withdrawal 12/05/16, improved. - Continue MVI daily. - Acetaminophen for fever - Currently off all sedation. On Percocet 10 q4. Oxycodone additional 5 as needed for breakthrough. - Restoril 15 qhs PRN sleep - Resolved. Patient is awake and alert. Acute hypoxemic respiratory failure - multifactorial, resolved History of COPD Anterior airway Tobacco abuse Bilateral pleural effusions - Emergently intubated and placed on mechanical ventilation 12/02/16, extubated 12/03/16 - Re intubated 01/01/17 PRVC ventilation 16/550//35. Extubated 01/06 - Now on nasal cannula. - CT chest revealed bilateral pleural effusions. Thoracentesis -1200 cc . Placement of Left #10 [place] pigtail catheter 01/03. Was dislodged 01/09. Placement of right #10 [place] pigtail catheter 01/06. - Right pleural fluid Cytology negative for malignancy 01/06 and Pleural fluid cytology negative 12/30 - Pulmonology following for chest tube management - Continues to drain serous fluid. No air leak. Patient may benefit with pleurex drain for PRN drainage is necessary. Pericardial effusion, tamponade status post pericardiocentesis 01/01/17 Atrial fibrillation with RVR currently normal sinus rhythm NSTEMI Dynamic LVOT obstruction Coronary artery disease status post bare metal stent to left circumflex Rkause 12/01 - Emergency Pericardiocentesis drains -01/01. Cc. Cultures no growth. Removed drain 01/06, Followup limited Echo 01/07 EF 60-65%. Trivial small pericardial effusion present - Cardiac catheterization 12/01 revealed EF around 60%. Left main normal. RCA normal. LAD 70% ostial. Bare stent left circumflex 70%. - Resume ASA 162 mg daily, d/c rectal ASA/ Continue Plavix 75 mg daily - Continue amiodarone 200 mg by mouth every 12 hours. - Continue Metoprolol 25 mg every 6 hours - 2-D echo no veg, EF 50-55%. Mild MR, mild AR. Pseudo-outflow obstruction due to concentric hypertrophy and hyperdynamic ventricle - Continue Lasix to 20 g IV twice a day. KCL Effervescent 25 bid x2. - Holding home medications of losartan 100 mg, amlodipine 10 mg daily, normotensive. - Continue atorvastatin 40 by mouth daily for dyslipidemia. - Pericardial fluid cytology 01/01 - negative for malignancy Invasive adenocarcinoma of the esophagus Liver cirrhosis - Tolerating mechanical soft, thin liquids. Speech therapy has signed off. - Patient's intake improving. Discontinue TPN - Has biopsy proven invasive adenocarcinoma of esophagus - Status post EUS/esophageal stent placement 12/25 Dr. Tejeda. - IV Protonix twice a day continue. - Carafate 1 g by mouth daily per her GI - Surgery removed port - Patient declined PEG. Per surgery repeat calorie count. Tolerating supplements. Acute kidney failure/ATN resolved - Monitor renal function closely. Saxena catheter. - Lasix /KCL as per above Septic shock-resolved MSSA bacteremia Vqlcvz-w-[id number] infection status post removal Pseudomonas pneumonia - Previously Rapid clinical improvement after Twigll-w-Deys was removed. remains off all pressors - Catheter tip culture blood culture and wound culture also positive for MSSA - Completed Rifampin, for synergy per ID (on po now), Completed Ancef, Levaquin. - Infectious disease Dr. Nassar. 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 Bell is following - Status post surgical resection for L parotid SCC at [facility] 10/01 - Hematology plans to give weekly Erbitux and XRT outpatient. - Transfuse as needed for hemoglobin less than 8 Hypokalemia Hypo-magnesium Diabetes Hypothyroidism Chronic prednisone use - Electrolyte replacement per protocol - On detemir 30 units every 12 hours. Change sliding scale to medium dose. ac /hs. - Holding home medications of metformin 1000 mg twice a day and glipizide 20 mill grams by mouth twice a day. - Levothyroxine 50 mcg po daily. - TSH 0.555 on admission - Continue prednisone 5 mg daily 01/11. Off Solu-Medrol Sacral decubitus ulcer - Wound care following. Open to air DVT prop - No pharmacological prophylaxis secondary to hemoptysis. Will discuss with GI when we can resume prophylaxis. Patient has LE skin breakdown. Hold SCDs skin breakdown BLE. GI Prop - Pantoprazole 40 iv twice a day Full Code Palliative care is following. Discharge Planning Chest tube being managed by pulm. CM assisting w d/c planning Guadalupe Carter MD Jan 18, 2017 14:23
[2017-01-18] MEDS: ATORVASTATIN 40 MG TAB PO SCH (20:39)
[2017-01-19] VITALS (8 sets, daily range): BP systolic 102–135; BP diastolic 50–63; PULSE 78–98; RESP 18–20; TEMP 97.3–98.6; O2SAT 93–100
[2017-01-19] MEDS: oxyCODONE/ACETAMINOPHEN 10 MG/325 MG TAB PO PRN ×3 (00:17→20:44)
[2017-01-19] MEDS: METOPROLOL TARTRATE 25 MG TAB PO SCH ×5 (00:17→23:23)
[2017-01-19] MEDS: LEVOTHYROXINE SODIUM 50 MCG TAB PO SCH (05:58)
[2017-01-19] MEDS: ARTIFICIAL TEARS OPTH SOLN 15 ML BTL EACH EYE SCH ×3 (05:58→20:47)
[2017-01-19] MEDS: SUCRALFATE 1 GM/10 ML CUP PO SCH ×4 (05:59→20:43)
[2017-01-19] MEDS: INSULIN ASPART SUPPLEMENTAL SCALE SQ SCH ×3 (05:59→21:05)
[2017-01-19] MEDS: CHLORHEXIDINE 0.12% (ORAL KIT) 15 ML CUP MT SCH ×2 (08:00→20:00)
[2017-01-19] MEDS: AMIODARONE 200 MG TAB PO SCH ×2 (08:19→20:44)
[2017-01-19] MEDS: CLOPIDOGREL 75 MG TAB PO SCH (08:20)
[2017-01-19] MEDS: predniSONE 5 MG TAB PO SCH (08:20)
[2017-01-19] MEDS: DOCUSATE SODIUM 50 MG/SENNA 8.6 MG TAB PO SCH ×2 (08:20→20:44)
[2017-01-19] MEDS: MULTIVITAMIN TAB PO SCH (08:20)
[2017-01-19] MEDS: FUROSEMIDE 20 MG/2 ML VIAL IV PUSH SCH ×2 (08:21→20:44)
[2017-01-19] MEDS: SODIUM CHLORIDE 0.9% FLUSH 10 ML FLUSH IV FLUSH SCH ×3 (08:21→20:45)
[2017-01-19] MEDS: POLYETHYLENE GLYCOL 17 GM PKG PO SCH (08:22)
[2017-01-19] MEDS: ASPIRIN EC 81 MG TABEC PO SCH (08:22)
[2017-01-19] MEDS: INSULIN DETEMIR 100 UNITS/ML VIAL SQ SCH ×2 (09:00→21:07)
[2017-01-19] MEDS: PANTOPRAZOLE SODIUM 40 MG VIAL IV PUSH SCH ×2 (11:15→20:46)
--- NOTE | 2017-01-19 13:16 | PD.ONC.PN ---
Subjective Subjective Remarks feels stronger and says he is more optimistic wants to go home soon eating no cough/fever Objective Data Date Time Temp Pulse Resp B/P (MAP) Pulse Ox O2 Delivery O2 Flow Rate FiO2 01/19/17 12:00 98.6 98 19 108/50 (69) 95 01/19/17 08:00 97.3 82 20 102/53 (69) 99 01/19/17 04:00 97.6 82 20 112/56 (74) 100 01/19/17 00:17 98.1 90 20 109/55 (73) 100 01/18/17 20:00 Nasal Cannula 2.00 01/18/17 20:00 98.2 87 20 118/57 (77) 96 01/18/17 17:56 100 21 01/18/17 16:38 97.3 87 21 119/58 (78) 100 01/19/17 01/19/17 01/19/17 06:59 14:59 22:59 Intake Total 880 ml Output Total 1700 ml Balance -820 ml Result Diagram: 01/17/17 1845 01/18/17 0630 Administered Medications Medications (Trade) Dose Ordered Sig/Geovanny Route PRN Reason Start Time Stop Time Status Last Admin Dose Admin Sodium Chloride (NS Flush) 2 ml UNSCH PRN IV FLUSH FLUSH AFTER USING IV ACCESS 11/30/16 02:45 12/24/16 09:59 Sodium Chloride (NS Flush) 2 ml BID IV FLUSH 11/30/16 09:00 01/19/17 08:21 Senna/Docusate Sodium (Rere-Colace) 1 tab BID PO 11/30/16 09:00 01/19/17 08:20 Acetaminophen (Tylenol) 325 mg Q4H PRN PO PAIN SCALE 1 TO 2 11/30/16 13:45 12/13/16 17:13 Ondansetron HCl (Zofran Inj) 4 mg Q4H PRN IV NAUSEA 11/30/16 13:45 12/24/16 22:41 Sodium Chloride (NS Flush) 5 ml Q21D IV FLUSH 11/30/16 18:00 12/21/16 17:19 Heparin Sodium (Porcine) (Heparin Central Flush) 500 units Q21D IV FLUSH 11/30/16 18:00 11/30/16 18:04 Heparin Sodium (Porcine) (Heparin Central Flush) 250 units UNSCH PRN IV FLUSH FLUSH AFTER USING IV ACCESS 11/30/16 18:00 01/16/17 06:25 Acetaminophen (Tylenol 650 Mg/ 20 ml Liq) 650 mg Q6H PRN PO FEVER 12/01/16 17:30 12/02/16 01:07 Polyethylene Glycol (Miralax) 17 gm DAILY PO 12/04/16 09:00 01/16/17 09:33 Multivitamins (Theragran) 1 tab DAILY PO 12/05/16 09:00 01/19/17 08:20 Lorazepam (Ativan Inj) 1 mg Q4H PRN IV PUSH ANXIETY AND/OR AGITATION 12/09/16 15:15 12/31/16 14:16 Atorvastatin Calcium (Lipitor) 40 mg HS PO 12/12/16 21:00 Future hold 01/18/17 20:39 Sodium Chloride (NS Flush) See Protocol DAILY IV FLUSH 12/13/16 09:00 01/19/17 09:00 Heparin Sodium (Porcine) (Heparin Central Flush) See Protocol DAILY IV FLUSH 12/13/16 09:00 01/19/17 08:20 Sodium Chloride (NS Flush) UNSCH PRN IV FLUSH SEE PROTOCOL TABLE 12/12/16 17:00 12/19/16 01:59 Lorazepam (Ativan) 0.5 mg DAILY PRN PO ANXIETY 12/18/16 15:45 Future Hold 12/19/16 08:29 Diltiazem HCl (Cardizem) 90 mg Q6H PO 12/18/16 23:00 Future Hold 12/25/16 12:14 Digoxin (Lanoxin) 0.25 mg DAILY PO 12/22/16 09:00 Future Hold 12/25/16 08:06 Sucralfate (Carafate Liq) 1 gm ACHS PO 12/22/16 11:00 01/19/17 11:14 Metoprolol Tartrate (Lopressor Inj) 5 mg Q1HR PRN IV PUSH RAPID HEART RATE 12/22/16 09:45 12/30/16 10:37 Pantoprazole Sodium (Protonix Inj) 40 mg Q12H IV PUSH 12/22/16 10:00 01/19/17 11:15 Metoprolol Tartrate (Lopressor) 25 mg Q6HR PO 12/22/16 13:00 01/19/17 11:15 Albuterol/ Ipratropium (Duoneb Neb) 1 ampule Q2HR NEB PRN INH WHEEZING 12/25/16 21:00 01/15/17 15:37 Clopidogrel Bisulfate (Plavix) 75 mg DAILY PO 12/29/16 09:00 01/19/17 08:20 Aspirin (Ecotrin Ec) 162 mg DAILY PO 12/29/16 09:00 Future hold 01/19/17 08:22 Prednisone (Deltasone) 5 mg DAILY PO 12/29/16 09:00 Future hold 01/19/17 08:20 Chlorhexidine Gluconate (Peridex 0.12% Liq) 15 ml BID@08,20 MT 01/01/17 20:00 01/14/17 20:00 Artificial Tears (Tears Naturale Opth Soln) 1 drop Q8HR EACH EYE 01/04/17 14:00 01/17/17 22:00 Insulin Detemir (Levemir Inj) 30 units Q12HR SQ 01/06/17 21:00 01/18/17 20:51 Amiodarone HCl (Cordarone) 200 mg Q12HR PO 01/07/17 10:00 01/18/17 20:39 Levothyroxine Sodium (Synthroid) 50 mcg DAILY@0600 PO 01/11/17 06:00 01/19/17 05:58 Oxycodone/ Acetaminophen (Percocet 10-325 Mg) 1 tab Q4H PRN PO PAIN 1-10 01/10/17 14:15 01/19/17 09:29 Oxycodone HCl (Roxicodone) 5 mg Q4H PRN PO BREAKTHROUGH PAIN 01/10/17 14:15 01/19/17 12:58 Temazepam (Restoril) 15 mg HS PRN PO SLEEP 01/11/17 11:45 01/18/17 20:39 Insulin Aspart (NovoLOG SUPPLEMENTAL SCALE) 1 ACHS SLIDING SCALE SQ 01/11/17 16:00 01/19/17 11:00 Furosemide (Lasix Inj) 20 mg Q12HR IV PUSH 01/12/17 21:00 01/19/17 08:21 Objective Remarks GENERAL: Well-nourished, well-developed patient. SKIN: Warm and dry. HEAD: Normocephalic. EYES: No scleral icterus. No injection or drainage. NECK: Supple, trachea midline. No JVD or lymphadenopathy. LYMPHATIC: No adenopathy. CARDIOVASCULAR: Regular rate and rhythm without murmurs. RESPIRATORY: Breath sounds equal bilaterally. No accessory muscle use. GASTROINTESTINAL: Abdomen soft, non-tender, nondistended. EXTREMITIES: No cyanosis, or edema. MUSCULOSKELETAL: Adequate muscle tone. NEUROLOGICAL: No obvious focal deficit. Awake, alert, and oriented x3. PSYCHIATRIC: Appropriate mood and affect; insight and judgment normal. Assessment/Plan Problem List: (1) Esophageal adenocarcinoma ICD Codes: C15.9 - Malignant neoplasm of esophagus, unspecified Status: Acute Plan: --EUS with esophageal stent placement on 12/25 --++hemoptysis --we plan to give weekly Erbitux and XRT outpatient. --patient had OP EGD with biopsy, pathology showed adenocarcinoma. --EGD/Colonoscopy, 11/20/16--showed long stricture in the mid esophagus and distal esophagus, multiple biopsies were performed Pathology revealed invasive adenocarcinoma- distal esophagus --XRT simulation done 12/19. (2) SCC (squamous cell carcinoma) ICD Codes: C44.92 - Squamous cell carcinoma of skin, unspecified Status: Acute Plan: --has a head and neck, lung malignancy which was locally advanced. --received definitive treatment with surgery. Post surgery he had positive margins and some poor risk features and he was about to get concurrent chemotherapy and radiation and adjuvantly to achieve local control of the disease --PET scan to stage his disease prior to treatment showed an esophageal mass (3) Normocytic anemia ICD Codes: D64.9 - Anemia, unspecified Status: Acute Plan: --hgb stable --transfuse packed red blood cells if his hemoglobin drops below 8.5 --s/p iron infusion (4) Afib ICD Codes: I48.91 - Unspecified atrial fibrillation Status: Acute Plan: --cardiology following. --s/p chest tube placement --on Plavix --on ASA --Amiodarone (5) NSTEMI (non-ST elevated myocardial infarction) ICD Codes: I21.4 - Non-ST elevation (NSTEMI) myocardial infarction Status: Chronic Plan: --had elevated troponin and ST-segment changes consistent with acute [place]. 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 Also with a new diagnosis of early stage gastric cancer Plan 1. continue supportive care 2. monitor CBC 3. plan for treatment once discharged from hospital. Problem Qualifiers (1) Afib: Brant Bell MD Jan 19, 2017 13:16
--- NOTE | 2017-01-19 14:24 | HHI.PR ---
Subjective Remarks Pt asks when chest tube will be removed. states that they had to change it because it was full. He is hopeful to go home soon Objective Vitals Vital Signs Date Time Temp Pulse Resp B/P (MAP) Pulse Ox O2 Delivery O2 Flow Rate FiO2 01/19/17 12:00 98.6 98 19 108/50 (69) 95 01/19/17 08:00 97.3 82 20 102/53 (69) 99 01/19/17 04:00 97.6 82 20 112/56 (74) 100 01/19/17 00:17 98.1 90 20 109/55 (73) 100 01/18/17 20:00 Nasal Cannula 2.00 01/18/17 20:00 98.2 87 20 118/57 (77) 96 01/18/17 17:56 100 21 01/18/17 16:38 97.3 87 21 119/58 (78) 100 I/O 01/18/17 01/18/17 01/18/17 01/19/17 01/19/17 01/19/17 06:59 14:59 22:59 06:59 14:59 22:59 Intake Total 600 ml 600 ml 880 ml Output Total 750 ml 1350 ml 1700 ml Balance -150 ml -750 ml -820 ml Intake Oral 600 ml 600 ml 880 ml Output Urine Total 400 ml 600 ml 1150 ml Chest Tube Drainage Total 350 ml 750 ml 550 ml # Bowel Movements 1 1 1 1 Result Diagram: 01/17/17 1845 01/18/17 0630 Imaging Last Impressions Chest X-Ray 01/17/17 0000 Signed Impressions: Service Date/Time: Tuesday, January 17, 2017 18:42 - CONCLUSION: 1. Interval improvement in bilateral pulmonary infiltrates. 2. More consolidative opacity is present at the left lung base without significant change. 3. Small left effusion without significant change. Bebeto Serrano MD Lower Extremity Ultrasound 01/09/17 0000 Signed Impressions: Service Date/Time: Monday, January 09, 2017 13:01 - CONCLUSION: No DVT is identified within the left lower extremity. Washington Marroquin MD Abdomen X-Ray 01/07/17 0000 Signed Impressions: Service Date/Time: Saturday, January 07, 2017 11:56 - CONCLUSION: Visualized portions of the lower chest demonstrate a presumed esophageal stent. Erik A. Alfred, MD Head CT 01/04/17 0000 Signed Impressions: Service Date/Time: Thursday, January 05, 2017 03:41 - CONCLUSION: 1. No acute intracranial abnormalities. Fluid in the mastoid air cells characteristic of mastoiditis. Kervin Krause MD CT Angiography 12/31/16 0000 Signed Impressions: Service Date/Time: Saturday, December 31, 2016 01:00 - CONCLUSION: 1. Study is negative for pulmonary embolism. 2. Pericardial effusion, diffuse patchy consolidation in both lungs, collapse left lower lobe, bilateral pleural effusions, esophageal stent, similar to yesterday's CT thorax. Kulwant Gupta MD Thoracentesis 12/30/16 0000 Signed Impressions: Service Date/Time: Friday, December 30, 2016 15:34 - CONCLUSION: Uncomplicated CT-guided thoracentesis. Kiran Harding MD Chest CT 12/29/16 0000 Signed Impressions: Service Date/Time: Friday, December 30, 2016 10:56 - CONCLUSION: 1. Moderate bilateral pleural effusions. 2. Areas of consolidation in the upper lobes bilaterally and in the right middle and right lower lobe. There is some combination of consolidation and atelectasis seen in the left lower lobe. Underlying diffuse processes should be considered including edema. 3. Esophageal stent in place. There is increased density within the stent which could be from fluid or soft tissue. 4. Non-specific mildly prominent lymph nodes in the mediastinum. 5. Moderate pericardial effusion. 6. Possible 3rd non-displaced right rib fracture. Washington Chou MD GI Procedure 12/25/16 0000 Signed Impressions: Service Date/Time: December 19:33 - CONCLUSION: Spot film as above. Everett Pollock MD FACR Barium Swallow X-Ray 12/20/16 0000 Signed Impressions: Service Date/Time: Tuesday, December 20, 2016 13:15 - CONCLUSION: 1. The distal half of the esophagus demonstrates irregular luminal narrowing consistent with the patient's history of esophageal adenocarcinoma. 2. Mild dilatation of the esophagus immediately proximal to the esophageal mass. However, there are no signs of obstruction. 3. Small hiatal hernia. Washington Marroquin MD Abdomen MRI 12/17/16 0000 Signed Impressions: Service Date/Time: Saturday, December 17, 2016 13:59 - CONCLUSION: 1. No acute finding is identified to explain the abdominal pain. 2. Stable thickening of the distal esophagus. There is a single mildly enlarged left gastric lymph node measuring 12 x 10 mm. 3. Moderate sized bilateral pleural effusions, left larger than right, with associated compressive atelectasis. Washington Marroquin MD Brain MRI 12/01/16 0000 Signed Impressions: Service Date/Time: Thursday, December 01, 2016 12:07 - CONCLUSION: Normal examination. Barrett Rodriguez MD Abdomen/Pelvis CT 11/29/16 2356 Signed Impressions: Service Date/Time: Wednesday, November 30, 2016 01:35 - CONCLUSION: 1. Markedly abnormal appearance of the distal esophagus consistent with the history of esophageal carcinoma. 2. Atherosclerotic calcifications of the aorta and iliac vessels. 3. Cirrhotic appearance to the liver with a mildly nodular contour present. Erik Simon MD Objective Remarks GENERAL: laying in bed, appears comfortable CARDIOVASCULAR: rrr w 2/6 murmur. RESPIRATORY: Clear to auscultation. Breath sounds equal bilaterally. No wheezes. right chest tube to suction GASTROINTESTINAL: Abdomen soft, non-tender, nondistended. MUSCULOSKELETAL: laying in bed, able to move his upper extremities. large decub ulcer present NEURO: awake, alert , answers questions PSYCH: calm, pleasant. not agitated Procedures Right axillary art line 12/02/16 Left subclavian central venous line 12/02/16 (Dr. Delarosa) intubation 12/02/16 and 01/01/17 PCI with bare metal stent to LCx by Dr. Krause on 11/30/16 port removal 12/02/16 Dr. Rich. EUS with esophageal stent placement, food bolus removal 12/25/16 Dr. Tejeda Right thoracentesis 12/30/16 (Dr. Harding) Pericardiocentesis and pericardial drain 01/01/17 (Dr. Bueno) Placement of Left #10 [place] pigtail catheter 01/03. Was dislodged 01/09. Placement of right #10 [place] pigtail catheter 01/06 A/P Problem List: (1) Intractable abdominal pain ICD Code: R10.9 - Unspecified abdominal pain Status: Acute (2) Esophageal carcinoma ICD Code: C15.9 - Malignant neoplasm of esophagus, unspecified Status: Acute (3) SCC (squamous cell carcinoma) ICD Code: C44.92 - Squamous cell carcinoma of skin, unspecified Status: Acute (4) Hypokalemia ICD Code: E87.6 - Hypokalemia Status: Acute (5) Lactic acidosis ICD Code: E87.2 - Acidosis Status: Acute (6) Renal insufficiency ICD Code: N28.9 - Disorder of kidney and ureter, unspecified Status: Acute (7) Elevated troponin ICD Code: R74.8 - Abnormal levels of other serum enzymes Status: Acute (8) DM (diabetes mellitus) ICD Code: E11.9 - Type 2 diabetes mellitus without complications Status: Acute (9) Tobacco abuse ICD Code: Z72.0 - Tobacco abuse Status: Acute (10) NSTEMI (non-ST elevated myocardial infarction) ICD Code: I21.4 - Non-ST elevation (NSTEMI) myocardial infarction Status: Chronic (11) Bacteremia due to Gram-positive bacteria ICD Code: R78.81 - Bacteremia Status: Acute (12) Encephalopathy, metabolic ICD Code: G93.41 - Metabolic encephalopathy Status: Acute Assessment and Plan Medical management 01/18/17: Continue current management. Chest tube still present and being managed by pulm. Awaiting for their recs on when CT can be removed. For now pt to remain in hospital until then. Vitals have been stable. BMP reviewed and Na stable at 135. Continue to monitor. Medical management 01/19/17: continue current management, pt still draining in CT. awaiting final recs from pulm regarding CT removal. For now pt to remain in hospital. Sodium levels stable. Treatment planning from oncology standpoint once discharged. CM assisting w d/c planning Patient is a 61-year-old male who came in to the hospital via EMS with complaints of abdominal pain and difficulty taking anything by mouth. Acute metabolic encephalopathy Encephalopathy most likely secondary to hypoxia, sepsis, now resolved. - Completed therapy with Thiamine for Possible alcohol withdrawal 12/05/16, improved. - Continue MVI daily. - Acetaminophen for fever - Currently off all sedation. On Percocet 10 q4. Oxycodone additional 5 as needed for breakthrough. - Restoril 15 qhs PRN sleep - Resolved. Patient is awake and alert. Acute hypoxemic respiratory failure - multifactorial, resolved History of COPD Anterior airway Tobacco abuse Bilateral pleural effusions - Emergently intubated and placed on mechanical ventilation 12/02/16, extubated 12/03/16 - Re intubated 01/01/17 PRVC ventilation 16/550/1//35. Extubated 01/06 - Now on nasal cannula. - CT chest revealed bilateral pleural effusions. Thoracentesis -1200 cc . Placement of Left #10 [place] pigtail catheter 01/03. Was dislodged 01/09. Placement of right #10 [place] pigtail catheter 01/06. - Right pleural fluid Cytology negative for malignancy 01/06 and Pleural fluid cytology negative 12/30 - Pulmonology following for chest tube management - Continues to drain serous fluid. No air leak. Patient may benefit with pleurex drain for PRN drainage is necessary. Pericardial effusion, tamponade status post pericardiocentesis 01/01/17 Atrial fibrillation with RVR currently normal sinus rhythm NSTEMI Dynamic LVOT obstruction Coronary artery disease status post bare metal stent to left circumflex Krause 12/01 - Emergency Pericardiocentesis drains -01/01. Cc. Cultures no growth. Removed drain 01/06, Followup limited Echo 01/07 EF 60-65%. Trivial small pericardial effusion present - Cardiac catheterization 12/01 revealed EF around 60%. Left main normal. RCA normal. LAD 70% ostial. Bare stent left circumflex 70%. - Resume ASA 162 mg daily, d/c rectal ASA/ Continue Plavix 75 mg daily - Continue amiodarone 200 mg by mouth every 12 hours. - Continue Metoprolol 25 mg every 6 hours - 2-D echo no veg, EF 50-55%. Mild MR, mild AR. Pseudo-outflow obstruction due to concentric hypertrophy and hyperdynamic ventricle - Continue Lasix to 20 g IV twice a day. KCL Effervescent 25 bid x2. - Holding home medications of losartan 100 mg, amlodipine 10 mg daily, normotensive. - Continue atorvastatin 40 by mouth daily for dyslipidemia. - Pericardial fluid cytology 01/01 - negative for malignancy Invasive adenocarcinoma of the esophagus Liver cirrhosis - Tolerating mechanical soft, thin liquids. Speech therapy has signed off. - Patient's intake improving. Discontinue TPN - Has biopsy proven invasive adenocarcinoma of esophagus - Status post EUS/esophageal stent placement 12/25 Dr. Tejeda. - IV Protonix twice a day continue. - Carafate 1 g by mouth daily per her GI - Surgery removed port - Patient declined PEG. Per surgery repeat calorie count. Tolerating supplements. Acute kidney failure/ATN resolved - Monitor renal function closely. Saxena catheter. - Lasix /KCL as per above Septic shock-resolved MSSA bacteremia [id number] infection status post removal Pseudomonas pneumonia - Previously Rapid clinical improvement after [id number] was removed. remains off all pressors - Catheter tip culture blood culture and wound culture also positive for MSSA - Completed Rifampin, for synergy per ID (on po now), Completed Ancef, Levaquin. - Infectious disease Dr. Nassar. 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 Bell is following - Status post surgical resection for L parotid SCC at [facility] 10/01 - Hematology plans to give weekly Erbitux and XRT outpatient. - Transfuse as needed for hemoglobin less than 8 Hypokalemia Hypo-magnesium Diabetes Hypothyroidism Chronic prednisone use - Electrolyte replacement per protocol - On detemir 30 units every 12 hours. Change sliding scale to medium dose. ac /hs. - Holding home medications of metformin 1000 mg twice a day and glipizide 20 mill grams by mouth twice a day. - Levothyroxine 50 mcg po daily. - TSH 0.555 on admission - Continue prednisone 5 mg daily 01/11. Off Solu-Medrol Sacral decubitus ulcer - Wound care following. Open to air DVT prop - No pharmacological prophylaxis secondary to hemoptysis. Will discuss with GI when we can resume prophylaxis. Patient has LE skin breakdown. Hold SCDs skin breakdown BLE. GI Prop - Pantoprazole 40 iv twice a day Full Code Palliative care is following. Discharge Planning Chest tube being managed by pulm. CM assisting w d/c planning Guadalupe Carter MD Jan 19, 2017 14:24
[2017-01-19 16:51] LABS: AUTOMATED NEUTROPHIL # 4.2 TH/MM3 (1.8-7.7); BASOPHIL # 0.1 TH/MM3 (0-0.2); BASOPHIL % 0.8 % (0.0-2.0); EOSINOPHIL # 0.1 TH/MM3 (0-0.4); EOSINOPHIL % 1.6 % (0.0-4.0); HEMATOCRIT 28.6 % (39.0-51.0); HEMO FLAGS DIFF FINAL; LYMPH % 25.5 % (9.0-44.0); LYMPHOCYTE # 1.7 TH/MM3 (1.0-4.8); MEAN CELL VOLUME 89.3 FL (80.0-100.0); MEAN CORPUSCULAR HEMOGLOBIN 29.2 PG (27.0-34.0); MEAN CORPUSCULAR HGB CONC 32.7 % (32.0-36.0); MONO % 7.6 % (0.0-8.0); NEUT % 64.5 % (16.0-70.0); PLATELET COUNT 270 TH/MM3 (150-450); RED BLOOD COUNT 3.21 MIL/MM3 (4.50-5.90); RED CELL DISTRIBUTION WIDTH 19.6 % (11.6-17.2); WHITE BLOOD COUNT 6.5 TH/MM3 (4.0-11.0)
--- NOTE | 2017-01-19 17:21 | HHI.PR ---
Subjective Remarks 61 YOWM with COPD,DM,AF Had Pericardial effusion and Pericardiocentesis Mild SOB No Fever Up in chair. Right chest tube draining Denies CP Objective Vital Signs Vital Signs Date Time Temp Pulse Resp B/P (MAP) Pulse Ox O2 Delivery O2 Flow Rate FiO2 01/19/17 16:12 98.2 89 18 135/63 (87) 97 01/19/17 12:00 98.6 98 19 108/50 (69) 95 01/19/17 09:00 98 Room Air 01/19/17 08:00 97.3 82 20 102/53 (69) 99 01/19/17 04:00 97.6 82 20 112/56 (74) 100 01/19/17 00:17 98.1 90 20 109/55 (73) 100 01/18/17 20:00 Nasal Cannula 2.00 01/18/17 20:00 98.2 87 20 118/57 (77) 96 01/18/17 17:56 100 21 I/O 01/18/17 01/18/17 01/18/17 01/19/17 01/19/17 01/19/17 07:00 15:00 23:00 07:00 15:00 23:00 Intake Total 600 ml 600 ml 880 ml Output Total 750 ml 1350 ml 1700 ml Balance -150 ml -750 ml -820 ml Intake Oral 600 ml 600 ml 880 ml Output Urine Total 400 ml 600 ml 1150 ml Chest Tube Drainage Total 350 ml 750 ml 550 ml # Bowel Movements 1 1 1 1 Result Diagram: 01/19/17 1616 01/18/17 0630 Objective Remarks GENERAL: WBWN WM,NAD SKIN: Warm and dry. HEAD: Normocephalic. EYES: No scleral icterus. No injection or drainage. NECK: Supple, trachea midline. No JVD or lymphadenopathy. CARDIOVASCULAR: Regular rate and rhythm without murmurs, gallops, or rubs. RESPIRATORY: Breath sounds equal bilaterally. No accessory muscle use. Right chest tube draining GASTROINTESTINAL: Abdomen soft, non-tender, nondistended. MUSCULOSKELETAL: No cyanosis, or edema. BACK: Nontender without obvious deformity. No CVA tenderness. A/P Assessment and Plan Right Pl effusion, s/p Chest tube placement S/P Pericardiocentesis AF CAD HTN PLAN: Cont Chest tube suction Supplement 02 Aerosol nebs OOB in Chair Aneja,Chace Dev MD Jan 19, 2017 17:21
[2017-01-19] MEDS: ATORVASTATIN 40 MG TAB PO SCH (20:44)
[2017-01-19] MEDS: TEMAZEPAM 15 MG CAP PO PRN (23:23)
[2017-01-20] VITALS (7 sets, daily range): BP systolic 105–113; BP diastolic 53–57; PULSE 84–92; RESP 16–20; TEMP 97.1–98.8; O2SAT 97–100
[2017-01-20] MEDS: oxyCODONE/ACETAMINOPHEN 10 MG/325 MG TAB PO PRN ×4 (05:06→22:11)
[2017-01-20] MEDS: METOPROLOL TARTRATE 25 MG TAB PO SCH ×3 (05:06→17:46)
[2017-01-20] MEDS: INSULIN ASPART SUPPLEMENTAL SCALE SQ SCH ×4 (05:08→21:00)
[2017-01-20] MEDS: SUCRALFATE 1 GM/10 ML CUP PO SCH ×4 (05:08→21:33)
[2017-01-20] MEDS: ARTIFICIAL TEARS OPTH SOLN 15 ML BTL EACH EYE SCH ×3 (05:08→22:00)
[2017-01-20] MEDS: LEVOTHYROXINE SODIUM 50 MCG TAB PO SCH (05:08)
[2017-01-20] MEDS: SODIUM CHLORIDE 0.9% FLUSH 10 ML FLUSH IV FLUSH SCH ×3 (07:30→21:33)
[2017-01-20] MEDS: CHLORHEXIDINE 0.12% (ORAL KIT) 15 ML CUP MT SCH ×2 (08:00→20:00)
[2017-01-20] MEDS: INSULIN DETEMIR 100 UNITS/ML VIAL SQ SCH ×2 (09:00→21:00)
[2017-01-20] MEDS: CLOPIDOGREL 75 MG TAB PO SCH (09:01)
[2017-01-20] MEDS: MULTIVITAMIN TAB PO SCH (09:01)
[2017-01-20] MEDS: DOCUSATE SODIUM 50 MG/SENNA 8.6 MG TAB PO SCH ×2 (09:01→21:33)
[2017-01-20] MEDS: FUROSEMIDE 20 MG/2 ML VIAL IV PUSH SCH ×2 (09:02→21:33)
[2017-01-20] MEDS: ASPIRIN EC 81 MG TABEC PO SCH (09:02)
[2017-01-20] MEDS: AMIODARONE 200 MG TAB PO SCH ×2 (09:02→21:33)
[2017-01-20] MEDS: PANTOPRAZOLE SODIUM 40 MG VIAL IV PUSH SCH ×2 (09:03→21:32)
[2017-01-20] MEDS: predniSONE 5 MG TAB PO SCH (09:03)
[2017-01-20] MEDS: POLYETHYLENE GLYCOL 17 GM PKG PO SCH (09:03)
--- NOTE | 2017-01-20 09:49 | HHI.PR ---
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 Then during this hospitalization the patient developed respiratory failure. He was on the ventilator. Also had pericardial effusion had pericardiocentesis done and has right pleural effusion and had a chest tube placed. He also developed atrial fibrillation with rapid ventricular rate. Currently he is weaned down to nasal cannula. Chest tube is draining. Has mild chest pain. 01/20: as per vector control specialist the plan is to continue Erbitux and Radiation therapy as outpatient, has invasive Adenocarcinoma of distal esophagus, has squamous cell carcinoma of skin, had surgery for Lung malignancy that was locally advanced status post surgery with positive margins, for chemo and radiation therapy, his PET scan performed for staging showed the esophageal mass, has anemia post blood transfusion, has Atrial Fibrillation not yet cleared by vector control specialist for discharge. Seen in his bedroom complaint about his chest tube not draining. Objective Vital Signs Date Time Temp Pulse Resp B/P (MAP) Pulse Ox O2 Delivery O2 Flow Rate FiO2 01/20/17 08:00 98.2 85 20 107/53 (71) 100 01/20/17 03:48 97.1 85 18 109/53 (71) 100 01/20/17 00:00 98.8 88 18 113/53 (73) 100 01/19/17 21:00 100 Nasal Cannula 2.00 01/19/17 20:08 98 Nasal Cannula 3.00 01/19/17 20:00 87 01/19/17 19:40 97.6 85 18 111/55 (73) 93 01/19/17 16:12 98.2 89 18 135/63 (87) 97 01/19/17 12:00 98.6 98 19 108/50 (69) 95 I/O 01/19/17 01/19/17 01/19/17 01/20/17 01/20/17 01/20/17 07:00 15:00 23:00 07:00 15:00 23:00 Intake Total 880 ml 720 ml 720 ml Output Total 1700 ml 500 ml 1050 ml Balance -820 ml 220 ml -330 ml Intake Oral 880 ml 720 ml 720 ml Output Urine Total 1150 ml 500 ml 200 ml Chest Tube Drainage Total 550 ml 850 ml # Bowel Movements 1 1 0 Result Diagram: 01/19/17 1616 01/18/17 0630 Imaging Last Impressions Chest X-Ray 01/17/17 0000 Signed Impressions: Service Date/Time: Tuesday, January 17, 2017 18:42 - CONCLUSION: 1. Interval improvement in bilateral pulmonary infiltrates. 2. More consolidative opacity is present at the left lung base without significant change. 3. Small left effusion without significant change. Bebeto Serrano MD Lower Extremity Ultrasound 01/09/17 0000 Signed Impressions: Service Date/Time: Monday, January 09, 2017 13:01 - CONCLUSION: No DVT is identified within the left lower extremity. Washington Marroquin MD Abdomen X-Ray 01/07/17 0000 Signed Impressions: Service Date/Time: Saturday, January 07, 2017 11:56 - CONCLUSION: Visualized portions of the lower chest demonstrate a presumed esophageal stent. Erik Simon MD Head CT 01/04/17 0000 Signed Impressions: Service Date/Time: Thursday, January 05, 2017 03:41 - CONCLUSION: 1. No acute intracranial abnormalities. Fluid in the mastoid air cells characteristic of mastoiditis. Kervin Krause MD CT Angiography 12/31/16 0000 Signed Impressions: Service Date/Time: Saturday, December 31, 2016 01:00 - CONCLUSION: 1. Study is negative for pulmonary embolism. 2. Pericardial effusion, diffuse patchy consolidation in both lungs, collapse left lower lobe, bilateral pleural effusions, esophageal stent, similar to yesterday's CT thorax. Kulwant Gupta MD Thoracentesis 12/30/16 0000 Signed Impressions: Service Date/Time: Friday, December 30, 2016 15:34 - CONCLUSION: Uncomplicated CT-guided thoracentesis. Kiran Harding MD Chest CT 12/29/16 0000 Signed Impressions: Service Date/Time: Friday, December 30, 2016 10:56 - CONCLUSION: 1. Moderate bilateral pleural effusions. 2. Areas of consolidation in the upper lobes bilaterally and in the right middle and right lower lobe. There is some combination of consolidation and atelectasis seen in the left lower lobe. Underlying diffuse processes should be considered including edema. 3. Esophageal stent in place. There is increased density within the stent which could be from fluid or soft tissue. 4. Non-specific mildly prominent lymph nodes in the mediastinum. 5. Moderate pericardial effusion. 6. Possible 3rd non-displaced right rib fracture. Washington Chou MD GI Procedure 12/25/16 0000 Signed Impressions: Service Date/Time: December 19:33 - CONCLUSION: Spot film as above. Everett Pollock MD FACR Barium Swallow X-Ray 12/20/16 0000 Signed Impressions: Service Date/Time: Tuesday, December 20, 2016 13:15 - CONCLUSION: 1. The distal half of the esophagus demonstrates irregular luminal narrowing consistent with the patient's history of esophageal adenocarcinoma. 2. Mild dilatation of the esophagus immediately proximal to the esophageal mass. However, there are no signs of obstruction. 3. Small hiatal hernia. Washington Marroquin MD Abdomen MRI 12/17/16 0000 Signed Impressions: Service Date/Time: Saturday, December 17, 2016 13:59 - CONCLUSION: 1. No acute finding is identified to explain the abdominal pain. 2. Stable thickening of the distal esophagus. There is a single mildly enlarged left gastric lymph node measuring 12 x 10 mm. 3. Moderate sized bilateral pleural effusions, left larger than right, with associated compressive atelectasis. Washington Marroquin MD Brain MRI 12/01/16 0000 Signed Impressions: Service Date/Time: Thursday, December 01, 2016 12:07 - CONCLUSION: Normal examination. Barrett Rodriguez MD Abdomen/Pelvis CT 11/29/16 [id number] Signed Impressions: Service Date/Time: Wednesday, November 30, 2016 01:35 - CONCLUSION: 1. Markedly abnormal appearance of the distal esophagus consistent with the history of esophageal carcinoma. 2. Atherosclerotic calcifications of the aorta and iliac vessels. 3. Cirrhotic appearance to the liver with a mildly nodular contour present. Erik Simon MD Procedures Right axillary art line 12/02/16 Left subclavian central venous line 12/02/16 (Dr. Delarosa) intubation 12/02/16 and 01/01/17 PCI with bare metal stent to LCx by Dr. Krause on 11/30/16 port removal 12/02/16 Dr. Rich. EUS with esophageal stent placement, food bolus removal 12/25/16 Dr. Tejeda Right thoracentesis 12/30/16 (Dr. Harding) Pericardiocentesis and pericardial drain 01/01/17 (Dr. Bueno) Placement of Left #10 [place] pigtail catheter 01/03. Was dislodged 01/09. Placement of right #10 [place] pigtail catheter 01/06 Other Results Laboratory Tests Test 11/30/16 01:15 11/30/16 15:45 11/30/16 18:20 12/01/16 05:20 Urine Hyaline Casts 3 /lpf Red Cell Morphology Comment NORMAL Iron Level 11 MCG/DL Total Iron Binding Capacity 269 MCG/DL Percent Iron Saturation 4.1 % Transferrin 192 MG/DL Vitamin B12 Level 345 PG/ML Red Blood Cell Folate 363 Differential Total Cells Counted 100 Neutrophils % (Manual) 77 % Band Neutrophils % 17 % Lymphocytes % 2 % Monocytes % 4 % Neutrophils # (Manual) 11.2 TH/MM3 Thyroid Stimulating Hormone 3rd Gen 0.555 uIU/ML Test 12/01/16 17:00 12/01/16 17:05 12/02/16 06:35 12/02/16 21:23 Urine Color LIGHT-BROWN Urine Turbidity CLOUDY Urine pH 6.0 Urine Specific [place] 1.023 Urine Protein 100 mg/dL Urine Glucose (UA) TRACE mg/dL Urine Ketones NEG mg/dL Urine Occult Blood LARGE Urine Nitrite NEG Urine Bilirubin NEG Urine Urobilinogen 2.0 MG/DL Urine Leukocyte Esterase TRACE Urine RBC 13 /hpf Urine WBC 12 /hpf Urine Squamous Epithelial Cells 7 /hpf Urine Transitional Epithelial Cells 2 /hpf Urine Amorphous Sediment RARE Urine Bacteria FEW /hpf Urine Mucus MANY /lpf Microscopic Urinalysis Comment CATH-CULTURE IND Ferritin 124 NG/ML Ammonia LESS THAN 10 MCMOL/L [id number] 298 mg/dL Ceruloplasmin 40 mg/dL Tumor Marker Alpha Fetoprotein 1.7 NG/ML Anti-Nuclear Antibody Screen NEG Mitochondria M2 Antibody LESS THAN 20.0 U Anti-Smooth Muscle Antibody Negative Hepatitis A IgM Antibody NEGATIVE Hepatitis B Surface Antigen NEGATIVE Hepatitis B Core IgM Antibody NEGATIVE Hepatitis C Antibody REACTIVE Lactic Acid Level 1.7 mmol/L Vancomycin Level Trough 15.3 MCG/ML Test 12/03/16 08:07 12/03/16 12:53 12/04/16 04:22 12/11/16 03:29 Venous Blood pH 7.43 Venous Blood Partial Pressure CO2 40 mmHg Venous Blood Partial Pressure O2 41 mmHg Venous Blood HCO3 26 mmol/L Venous Blood Oxygen Saturation 68 % Venous Blood Oxygen Content 8.3 Vol % Venous Blood Base Excess 2.1 mmol/L Hepatitis C RNA Genotype NOT DETECTED Hepatitis C RNA (PCR) IUs/ml LESS THAN 15 IU/mL Hepatitis C RNA (PCR) log IUs/ml LESS THAN 1.18 Haptoglobin 516 MG/DL Fibrinogen 436 mg/dL Blood Urea Nitrogen 52 MG/DL Creatinine 1.09 MG/DL Random Glucose 238 MG/DL Total Protein 5.9 GM/DL Albumin 2.0 GM/DL Calcium Level 7.3 MG/DL Magnesium Level 2.2 MG/DL Alkaline Phosphatase 74 U/L Aspartate Amino Transf (AST/SGOT) 91 U/L Alanine Aminotransferase (ALT/SGPT) 43 U/L Lactate Dehydrogenase 534 U/L Total Bilirubin 1.2 MG/DL Sodium Level 142 MEQ/L Potassium Level 3.2 MEQ/L Chloride Level 104 MEQ/L Carbon Dioxide Level 29.2 MEQ/L Triglycerides Level 123 MG/DL Cholesterol Level 100 MG/DL LDL Cholesterol 51 MG/DL HDL Cholesterol 24.3 MG/DL Cholesterol/HDL Ratio 4.11 RATIO Test 12/15/16 02:10 12/16/16 09:00 12/19/16 04:10 12/20/16 05:00 Direct Bilirubin 0.4 MG/DL Indirect Bilirubin 0.4 MG/DL Troponin I 0.09 NG/ML Helmet Cells OCC B-Type Natriuretic Peptide 498 PG/ML Test 12/23/16 06:45 12/25/16 21:42 12/30/16 15:00 12/31/16 04:10 Digoxin Level 0.8 NG/ML Nasal Screen MRSA (PCR) MRSA NOT DETECTED Prothrombin Time 13.0 SEC Prothromb Time International Ratio 1.2 RATIO Activated Partial Thromboplast Time 28.6 SEC Oxygen Delivery Device NRB Blood Gas Liter Flow 15 L/M Test 01/01/17 11:30 01/03/17 04:14 01/04/17 06:44 01/05/17 03:26 Pericardial Fluid pH 8.5 Pericardial Fluid WBC 5170 /MM3 Pericardial Fluid RBC 621694 /MM3 Pericardial Fluid Neutrophils 99 % Pericardial Fluid Lymphocytes 1 % Pericardial Fluid Total Protein 3.4 GM/DL Pericardial Fluid LDH 2922 U/L Pericardial Fluid Glucose 101 MG/DL Random Vancomycin Level 4.1 COMMENT Lipase 60 U/L Total Creatine Kinase 41 U/L Test 01/06/17 04:04 01/06/17 12:30 01/06/17 15:40 01/11/17 06:30 Protein Corrected Calcium 8.4 MG/DL Body Fluid Amylase Source PLEURAL FLUID Body Fluid Amylase 7 U/L Pleural Fluid pH 8.5 Pleural Fluid WBC 110 /MM3 Pleural Fluid RBC 1056 /MM3 Pleural Fluid Neutrophils 53 % Pleural Fluid Lymphocytes 40 % Pleural Fluid Monocytes 2 % Pleural Fluid Histiocytes 2 % Pleural Fluid Mesothelial Cells 3 % Pleural Fluid Total Protein 1.4 GM/DL Pleural Fluid LDH 88 U/L Pleural Fluid Glucose 277 MG/DL Blood Gas Puncture Site RT RADIAL Blood Gas Patient Temperature 98.6 Blood Gas HCO3 29 mmol/L Blood Gas Base Excess 4.2 mmol/L Blood Gas Oxygen Saturation 92 % Arterial Blood pH 7.38 Arterial Blood Partial Pressure CO2 50 mmHg Arterial Blood Partial Pressure O2 75 mmHg Arterial Blood Oxygen Content 11.9 Vol % Arterial Blood Carboxyhemoglobin 1.9 % Arterial Blood Methemoglobin 0.7 % Blood Gas Hemoglobin 9.1 G/DL Blood Gas Ventilator Setting CPAP 5/5 Blood Gas Inspired Oxygen 35 % Blood Urea Nitrogen 16 MG/DL Creatinine 0.46 MG/DL Random Glucose 141 MG/DL Total Protein 5.5 GM/DL Albumin 1.6 GM/DL Calcium Level 7.8 MG/DL Phosphorus Level 3.0 MG/DL Magnesium Level 1.8 MG/DL Alkaline Phosphatase 86 U/L Aspartate Amino Transf (AST/SGOT) 19 U/L Alanine Aminotransferase (ALT/SGPT) 13 U/L Total Bilirubin 0.4 MG/DL Sodium Level 137 MEQ/L Potassium Level 4.1 MEQ/L Chloride Level 99 MEQ/L Carbon Dioxide Level 31.7 MEQ/L Test 01/16/17 06:00 01/17/17 18:45 01/18/17 06:30 01/19/17 16:16 Blood Urea Nitrogen 15 MG/DL 17 MG/DL Creatinine 0.47 MG/DL 0.44 MG/DL Random Glucose 119 MG/DL 65 MG/DL Total Protein 5.6 GM/DL Albumin 1.8 GM/DL Calcium Level 7.6 MG/DL 7.9 MG/DL Alkaline Phosphatase 124 U/L Aspartate Amino Transf (AST/SGOT) 20 U/L Alanine Aminotransferase (ALT/SGPT) 11 U/L Total Bilirubin 0.4 MG/DL Sodium Level 134 MEQ/L 135 MEQ/L Potassium Level 4.1 MEQ/L 4.3 MEQ/L Chloride Level 97 MEQ/L 96 MEQ/L Carbon Dioxide Level 31.2 MEQ/L 34.2 MEQ/L Platelet Estimate NORMAL Platelet Morphology Comment NORMAL Ovalocytes 1+ Anion Gap 5 MEQ/L Estimat Glomerular Filtration Rate 197 ML/MIN White Blood Count 6.5 TH/MM3 Red Blood Count 3.21 MIL/MM3 Hemoglobin 9.3 GM/DL Hematocrit 28.6 % Mean Corpuscular Volume 89.3 FL Mean Corpuscular Hemoglobin 29.2 PG Mean Corpuscular Hemoglobin Concent 32.7 % Red Cell Distribution Width 19.6 % Platelet Count 270 TH/MM3 Mean Platelet Volume 8.3 FL Neutrophils (%) (Auto) 64.5 % Lymphocytes (%) (Auto) 25.5 % Monocytes (%) (Auto) 7.6 % Eosinophils (%) (Auto) 1.6 % Basophils (%) (Auto) 0.8 % Neutrophils # (Auto) 4.2 TH/MM3 Lymphocytes # (Auto) 1.7 TH/MM3 Monocytes # (Auto) 0.5 TH/MM3 Eosinophils # (Auto) 0.1 TH/MM3 Basophils # (Auto) 0.1 TH/MM3 CBC Comment DIFF FINAL Differential Comment Objective Remarks GENERAL: laying in bed, appears comfortable CARDIOVASCULAR: rrr w 2/6 murmur. RESPIRATORY: Clear to auscultation. Breath sounds equal bilaterally. No wheezes. right chest tube to suction GASTROINTESTINAL: Abdomen soft, non-tender, nondistended. MUSCULOSKELETAL: laying in bed, able to move his upper extremities. large decub ulcer present NEURO: awake, alert , answers questions PSYCH: calm, pleasant. not agitated Medications and IVs Current Medications Medications (Trade) Dose Ordered Sig/Geovanny Route Start Time Stop Time Status Last Admin (NS Flush) 2 ml UNSCH PRN IV FLUSH 11/30/16 02:45 12/24/16 09:59 (NS Flush) 2 ml BID IV FLUSH 11/30/16 09:00 01/20/17 07:30 (Rere-Colace) 1 tab BID PO 11/30/16 09:00 01/20/17 09:01 (Milk Of Magnesia Liq) 30 ml Q12H PRN PO 11/30/16 02:45 (Senokot) 17.2 mg Q12H PRN PO 11/30/16 02:45 (Dulcolax Supp) 10 mg DAILY PRN RECTAL 11/30/16 02:45 (Lactulose Liq) 30 ml DAILY PRN PO 11/30/16 02:45 Miscellaneous Information Patient in critical care unit? Ass... Q361D .XX 11/30/16 05:15 (Tylenol) 325 mg Q4H PRN PO 11/30/16 13:45 12/13/16 17:13 (Atropine Inj) 0.5 mg UNSCH PRN IV 11/30/16 13:45 (Zofran Inj) 4 mg Q4H PRN IV 11/30/16 13:45 12/24/16 22:41 (NS Flush) 5 ml Q21D IV FLUSH 11/30/16 18:00 12/21/16 17:19 (Heparin Central Flush) 500 units Q21D IV FLUSH 11/30/16 18:00 11/30/16 18:04 (NS Flush) 5 ml UNSCH PRN IV FLUSH 11/30/16 18:00 (Heparin Central Flush) 250 units UNSCH PRN IV FLUSH 11/30/16 18:00 01/16/17 06:25 (Romazicon Inj) 0.2 mg Q1M PRN IV PUSH 12/01/16 13:00 (Tylenol 650 Mg/ 20 ml Liq) 650 mg Q6H PRN PO 12/01/16 17:30 12/02/16 01:07 (Miralax) 17 gm DAILY PO 12/04/16 09:00 01/20/17 09:03 (Theragran) 1 tab DAILY PO 12/05/16 09:00 01/20/17 09:01 (Ativan Inj) 1 mg Q4H PRN IV PUSH 12/09/16 15:15 12/31/16 14:16 (Haldol Inj) 2 mg Q8H PRN IM 12/10/16 17:00 (Lipitor) 40 mg HS PO 12/12/16 21:00 Future hold 01/19/17 20:44 (NS Flush) See Protocol DAILY IV FLUSH 12/13/16 09:00 01/20/17 09:00 (NS Flush) See Protocol UNSCH PRN IV FLUSH 12/12/16 17:00 (Heparin Central Flush) See Protocol DAILY IV FLUSH 12/13/16 09:00 01/20/17 09:02 (Heparin Central Flush) See Protocol UNSCH PRN IV FLUSH 12/12/16 17:00 (NS Flush) UNSCH PRN IV FLUSH 12/12/16 17:00 12/19/16 01:59 (Nitrostat Sl) 0.4 mg Q5M PRN SL 12/16/16 00:15 (Ativan) 0.5 mg DAILY PRN PO 12/18/16 15:45 Future Hold 12/19/16 08:29 (Cardizem) 90 mg Q6H PO 12/18/16 23:00 Future Hold 12/25/16 12:14 (Lanoxin) 0.25 mg DAILY PO 12/22/16 09:00 Future Hold 12/25/16 08:06 (Carafate Liq) 1 gm ACHS PO 12/22/16 11:00 01/20/17 05:08 (Lopressor Inj) 5 mg Q1HR PRN IV PUSH 12/22/16 09:45 12/30/16 10:37 (Protonix Inj) 40 mg Q12H IV PUSH 12/22/16 10:00 01/20/17 09:03 (Lopressor) 25 mg Q6HR PO 12/22/16 13:00 01/20/17 05:06 (Duoneb Neb) 1 ampule Q2HR NEB PRN INH 12/25/16 21:00 01/15/17 15:37 (Plavix) 75 mg DAILY PO 12/29/16 09:00 01/20/17 09:01 (Ecotrin Ec) 162 mg DAILY PO 12/29/16 09:00 Future hold 01/20/17 09:02 (Deltasone) 5 mg DAILY PO 12/29/16 09:00 Future hold 01/20/17 09:03 (Peridex 0.12% Liq) 15 ml BID@08,20 MT 01/01/17 20:00 01/20/17 08:00 (Tears Naturale Opth Soln) 1 drop Q8HR EACH EYE 01/04/17 14:00 01/19/17 20:47 (Levemir Inj) 30 units Q12HR SQ 01/06/17 21:00 01/20/17 09:00 (Cordarone) 200 mg Q12HR PO 01/07/17 10:00 01/20/17 09:02 (Synthroid) 50 mcg DAILY@0600 PO 01/11/17 06:00 01/20/17 05:08 (Percocet 10-325 Mg) 1 tab Q4H PRN PO 01/10/17 14:15 01/20/17 09:10 (Roxicodone) 5 mg Q4H PRN PO 01/10/17 14:15 01/19/17 23:23 (Restoril) 15 mg HS PRN PO 01/11/17 11:45 01/19/17 23:23 (D50w (Vial) Inj) 50 ml UNSCH PRN IV 01/11/17 12:15 (Glucagon Inj) 1 mg UNSCH PRN OTHER 01/11/17 12:15 (NovoLOG SUPPLEMENTAL SCALE) 1 ACHS SLIDING SCALE SQ 01/11/17 16:00 01/19/17 21:05 (Lasix Inj) 20 mg Q12HR IV PUSH 01/12/17 21:00 01/20/17 09:02 A/P Assessment and Plan Medical management 01/19/17: continue current management, pt still draining in CT. awaiting final recs from pulm regarding CT removal. For now pt to remain in hospital. Sodium levels stable. Treatment planning from oncology standpoint once discharged. CM assisting w d/c planning 1. Acute metabolic Encephalopathy Most likely secondary to Hypoxia, sepsis, Resolved. - Completed therapy with Thiamine for Possible alcohol withdrawal 12/05/16, improved. - Currently off all sedation. On Percocet 10 q4. Oxycodone additional 5 as needed for breakthrough. - Restoril 15 qhs PRN sleep 2. Acute Hypoxemic Respiratory failure- Resolved. History of COPD, Tobacco abuse, Bilateral Pleural Effusions - Emergently intubated and placed on mechanical ventilation 12/02/16, extubated 12/03/16 - Re intubated 01/01/17 PRVC ventilation 16/550/1/5/35. Extubated 01/06 - Now on nasal cannula. - CT chest revealed bilateral pleural effusions. Thoracentesis -1200 cc . Placement of Left #10 [place] pigtail catheter 01/03. Was dislodged 01/09. Placement of right #10 [place] pigtail catheter 01/06. - Right pleural fluid Cytology negative for malignancy 01/06 and Pleural fluid cytology negative 12/30 - Pulmonology following for chest tube management - as per patient the chest tube is not draining properly will leave this management to philosophy specialist. 3. Pericardial effusion, tamponade status post pericardiocentesis 01/01/17 Atrial fibrillation with RVR currently normal sinus rhythm NSTEMI Dynamic LVOT obstruction Coronary artery disease status post bare metal stent to left circumflex Krause 12/01 - Emergency Pericardiocentesis drains -01/01. Cc. Cultures no growth. Removed drain 01/06, Followup limited Echo 01/07 EF 60-65%. Trivial small pericardial effusion present - Cardiac catheterization 12/01 revealed EF around 60%. Left main normal. RCA normal. LAD 70% ostial. Bare stent left circumflex 70%. - Resume ASA 162 mg daily, d/c rectal ASA/ Continue Plavix 75 mg daily - Continue amiodarone 200 mg by mouth every 12 hours. - Continue Metoprolol 25 mg every 6 hours - 2-D echo no veg, EF 50-55%. Mild MR, mild AR. Pseudo-outflow obstruction due to concentric hypertrophy and hyperdynamic ventricle - Continue Lasix to 20 g IV twice a day. KCL Effervescent 25 bid x2. - Holding home medications of losartan 100 mg, amlodipine 10 mg daily, normotensive. - Continue atorvastatin 40 by mouth daily for dyslipidemia. - Pericardial fluid cytology 01/01 - negative for malignancy 4. Invasive adenocarcinoma of the esophagus Liver cirrhosis - Tolerating mechanical soft, thin liquids. Speech therapy has signed off. - Patient's intake improving. Discontinue TPN - Has biopsy proven invasive adenocarcinoma of esophagus - Status post EUS/esophageal stent placement 12/25 Dr. Tejeda. - IV Protonix twice a day continue. - Carafate 1 g by mouth daily per her GI - Surgery removed port - Patient declined PEG. Per surgery repeat calorie count. Tolerating supplements. 5. Septic shock-resolved MSSA bacteremia [id number] infection status post removal Pseudomonas pneumonia - Previously Rapid clinical improvement after [id number] was removed. remains off all pressors - Catheter tip culture blood culture and wound culture also positive for MSSA - Completed Rifampin, for synergy per ID (on po now), Completed Ancef, Levaquin. - Infectious disease Dr. Nassar. 2D Echo neg for endocarditis, Unable to do PAM due to esophageal' Cancer, now off antibiotics. 6. 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 Bell is following - Status post surgical resection for L parotid SCC at [facility] 10/01 - Hematology plans to give weekly Erbitux and XRT outpatient. - Transfuse as needed for hemoglobin less than 8 7. DM II continue long lasting insulin and sliding scale, 8. Hypothyroidism continue Hormonal replacement, is on Prednisone 5 mg daily 9. Sacral decubitus ulcer - Wound care following. Open to air DVT prop - No pharmacological prophylaxis secondary to hemoptysis. Will discuss with GI when we can resume prophylaxis. Patient has LE skin breakdown. Hold SCDs skin breakdown BLE. GI Prop - Pantoprazole 40 iv twice a day Full Code Palliative care is following. Discharge Planning Patient still with chest tube, awaiting final by philosophy specialist. Rick Alfaro MD Jan 20, 2017 09:49
--- NOTE | 2017-01-20 13:53 | PD.ONC.PN ---
Subjective Subjective Remarks Afebrile overnight. patient resting in bed in nad. not eating much, states he doesn't like the food here. Objective Data Date Time Temp Pulse Resp B/P (MAP) Pulse Ox O2 Delivery O2 Flow Rate FiO2 01/20/17 13:41 99 Nasal Cannula 2.00 01/20/17 12:40 Room Air 21 01/20/17 12:00 97.8 84 20 112/57 (75) 97 01/20/17 08:00 98.2 85 20 107/53 (71) 100 01/20/17 03:48 97.1 85 18 109/53 (71) 100 01/20/17 00:00 98.8 88 18 113/53 (73) 100 01/19/17 21:00 100 Nasal Cannula 2.00 01/19/17 20:08 98 Nasal Cannula 3.00 01/19/17 20:00 87 01/19/17 19:40 97.6 85 18 111/55 (73) 93 01/19/17 16:12 98.2 89 18 135/63 (87) 97 01/20/17 01/20/17 01/20/17 07:00 15:00 23:00 Intake Total 720 ml Output Total 1050 ml 500 ml Balance -330 ml -500 ml Result Diagram: 01/19/17 1616 01/18/17 0630 Laboratory Results Laboratory Tests Test 01/19/17 16:16 White Blood Count 6.5 TH/MM3 Red Blood Count 3.21 MIL/MM3 Hemoglobin 9.3 GM/DL Hematocrit 28.6 % Mean Corpuscular Volume 89.3 FL Mean Corpuscular Hemoglobin 29.2 PG Mean Corpuscular Hemoglobin Concent 32.7 % Red Cell Distribution Width 19.6 % Platelet Count 270 TH/MM3 Mean Platelet Volume 8.3 FL Neutrophils (%) (Auto) 64.5 % Lymphocytes (%) (Auto) 25.5 % Monocytes (%) (Auto) 7.6 % Eosinophils (%) (Auto) 1.6 % Basophils (%) (Auto) 0.8 % Neutrophils # (Auto) 4.2 TH/MM3 Lymphocytes # (Auto) 1.7 TH/MM3 Monocytes # (Auto) 0.5 TH/MM3 Eosinophils # (Auto) 0.1 TH/MM3 Basophils # (Auto) 0.1 TH/MM3 CBC Comment DIFF FINAL Differential Comment Administered Medications Medications (Trade) Dose Ordered Sig/Geovanny Route PRN Reason Start Time Stop Time Status Last Admin Dose Admin Sodium Chloride (NS Flush) 2 ml UNSCH PRN IV FLUSH FLUSH AFTER USING IV ACCESS 11/30/16 02:45 12/24/16 09:59 Sodium Chloride (NS Flush) 2 ml BID IV FLUSH 11/30/16 09:00 01/20/17 07:30 Senna/Docusate Sodium (Rere-Colace) 1 tab BID PO 11/30/16 09:00 01/20/17 09:01 Acetaminophen (Tylenol) 325 mg Q4H PRN PO PAIN SCALE 1 TO 2 11/30/16 13:45 12/13/16 17:13 Ondansetron HCl (Zofran Inj) 4 mg Q4H PRN IV NAUSEA 11/30/16 13:45 12/24/16 22:41 Sodium Chloride (NS Flush) 5 ml Q21D IV FLUSH 11/30/16 18:00 12/21/16 17:19 Heparin Sodium (Porcine) (Heparin Central Flush) 500 units Q21D IV FLUSH 11/30/16 18:00 11/30/16 18:04 Heparin Sodium (Porcine) (Heparin Central Flush) 250 units UNSCH PRN IV FLUSH FLUSH AFTER USING IV ACCESS 11/30/16 18:00 01/16/17 06:25 Acetaminophen (Tylenol 650 Mg/ 20 ml Liq) 650 mg Q6H PRN PO FEVER 12/01/16 17:30 12/02/16 01:07 Polyethylene Glycol (Miralax) 17 gm DAILY PO 12/04/16 09:00 01/20/17 09:03 Multivitamins (Theragran) 1 tab DAILY PO 12/05/16 09:00 01/20/17 09:01 Lorazepam (Ativan Inj) 1 mg Q4H PRN IV PUSH ANXIETY AND/OR AGITATION 12/09/16 15:15 12/31/16 14:16 Atorvastatin Calcium (Lipitor) 40 mg HS PO 12/12/16 21:00 Future hold 01/19/17 20:44 Sodium Chloride (NS Flush) See Protocol DAILY IV FLUSH 12/13/16 09:00 01/20/17 09:00 Heparin Sodium (Porcine) (Heparin Central Flush) See Protocol DAILY IV FLUSH 12/13/16 09:00 01/20/17 09:02 Sodium Chloride (NS Flush) UNSCH PRN IV FLUSH SEE PROTOCOL TABLE 12/12/16 17:00 12/19/16 01:59 Lorazepam (Ativan) 0.5 mg DAILY PRN PO ANXIETY 12/18/16 15:45 Future Hold 12/19/16 08:29 Diltiazem HCl (Cardizem) 90 mg Q6H PO 12/18/16 23:00 Future Hold 12/25/16 12:14 Digoxin (Lanoxin) 0.25 mg DAILY PO 12/22/16 09:00 Future Hold 12/25/16 08:06 Sucralfate (Carafate Liq) 1 gm ACHS PO 12/22/16 11:00 01/20/17 12:13 Metoprolol Tartrate (Lopressor Inj) 5 mg Q1HR PRN IV PUSH RAPID HEART RATE 12/22/16 09:45 12/30/16 10:37 Pantoprazole Sodium (Protonix Inj) 40 mg Q12H IV PUSH 12/22/16 10:00 01/20/17 09:03 Metoprolol Tartrate (Lopressor) 25 mg Q6HR PO 12/22/16 13:00 01/20/17 12:14 Albuterol/ Ipratropium (Duoneb Neb) 1 ampule Q2HR NEB PRN INH WHEEZING 12/25/16 21:00 01/15/17 15:37 Clopidogrel Bisulfate (Plavix) 75 mg DAILY PO 12/29/16 09:00 01/20/17 09:01 Aspirin (Ecotrin Ec) 162 mg DAILY PO 12/29/16 09:00 Future hold 01/20/17 09:02 Prednisone (Deltasone) 5 mg DAILY PO 12/29/16 09:00 Future hold 01/20/17 09:03 Chlorhexidine Gluconate (Peridex 0.12% Liq) 15 ml BID@08,20 MT 01/01/17 20:00 01/20/17 08:00 Artificial Tears (Tears Naturale Opth Soln) 1 drop Q8HR EACH EYE 01/04/17 14:00 01/20/17 13:29 Insulin Detemir (Levemir Inj) 30 units Q12HR SQ 01/06/17 21:00 01/20/17 09:00 Amiodarone HCl (Cordarone) 200 mg Q12HR PO 01/07/17 10:00 01/20/17 09:02 Levothyroxine Sodium (Synthroid) 50 mcg DAILY@0600 PO 01/11/17 06:00 01/20/17 05:08 Oxycodone/ Acetaminophen (Percocet 10-325 Mg) 1 tab Q4H PRN PO PAIN 1-10 01/10/17 14:15 01/20/17 09:10 Oxycodone HCl (Roxicodone) 5 mg Q4H PRN PO BREAKTHROUGH PAIN 01/10/17 14:15 01/19/17 23:23 Temazepam (Restoril) 15 mg HS PRN PO SLEEP 01/11/17 11:45 01/19/17 23:23 Insulin Aspart (NovoLOG SUPPLEMENTAL SCALE) 1 ACHS SLIDING SCALE SQ 01/11/17 16:00 01/19/17 21:05 Furosemide (Lasix Inj) 20 mg Q12HR IV PUSH 01/12/17 21:00 01/20/17 09:02 Objective Remarks GENERAL: Middle aged male, chronically ill appearing upright in bed in [facility]. SKIN: Warm and dry. HEAD: Normocephalic. EYES: No injection or drainage. NECK: Supple, trachea midline. CARDIOVASCULAR: +S1/S2 RESPIRATORY: Breath sounds equal bilaterally. No accessory muscle use. GASTROINTESTINAL: Abdomen soft, non-tender, nondistended. EXTREMITIES: No cyanosis NEUROLOGICAL: No obvious focal deficit. Awake, alert, and oriented x3. Assessment/Plan Problem List: (1) Esophageal adenocarcinoma ICD Codes: C15.9 - Malignant neoplasm of esophagus, unspecified Status: Acute Plan: --EUS with esophageal stent placement on 12/25 --++hemoptysis --we plan to give weekly Erbitux and XRT outpatient. --patient had OP EGD with biopsy, pathology showed adenocarcinoma. --EGD/Colonoscopy, 11/20/16--showed long stricture in the mid esophagus and distal esophagus, multiple biopsies were performed Pathology revealed invasive adenocarcinoma- distal esophagus --XRT simulation done 12/19. (2) SCC (squamous cell carcinoma) ICD Codes: C44.92 - Squamous cell carcinoma of skin, unspecified Status: Acute Plan: --has a head and neck, lung malignancy which was locally advanced. --received definitive treatment with surgery. Post surgery he had positive margins and some poor risk features and he was about to get concurrent chemotherapy and radiation and adjuvantly to achieve local control of the disease --PET scan to stage his disease prior to treatment showed an esophageal mass (3) Normocytic anemia ICD Codes: D64.9 - Anemia, unspecified Status: Acute Plan: --hgb stable --transfuse packed red blood cells if his hemoglobin drops below 8.5 --s/p iron infusion (4) Afib ICD Codes: I48.91 - Unspecified atrial fibrillation Status: Acute Plan: --cardiology following. --s/p chest tube placement --on Plavix --on ASA --Amiodarone (5) NSTEMI (non-ST elevated myocardial infarction) ICD Codes: I21.4 - Non-ST elevation (NSTEMI) myocardial infarction Status: Chronic Plan: --had elevated troponin and ST-segment changes consistent with acute LA. 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 Also with a new diagnosis of early stage gastric cancer Plan 1. monitor CBC 2. continue supportive care 3. plan for treatment once outpatient Attending Statement The exam, history, and the medical decision-making described in the above note were completed with the assistance of the mid-level provider. I reviewed and agree with the findings presented. I attest that I had a [id number] encounter with the patient on the same day, and personally performed and documented my assessment and findings in the medical record. Problem Qualifiers (1) Afib: Perla Duran Jan 20, 2017 13:53 Brant Bell MD Jan 20, 2017 23:51
--- NOTE | 2017-01-20 19:49 | HHI.PR ---
Subjective Remarks 61 YOWM with COPD,DM,AF Had Pericardial effusion and Pericardiocentesis Mild SOB No Fever Up in chair. Right chest tube draining Anxious to have chest tube removed Objective Vital Signs Vital Signs Date Time Temp Pulse Resp B/P (MAP) Pulse Ox O2 Delivery O2 Flow Rate FiO2 01/20/17 16:00 97.3 91 20 105/53 (70) 97 01/20/17 13:41 99 Nasal Cannula 2.00 01/20/17 12:40 Room Air 21 01/20/17 12:00 97.8 84 20 112/57 (75) 97 01/20/17 08:00 98.2 85 20 107/53 (71) 100 01/20/17 03:48 97.1 85 18 109/53 (71) 100 01/20/17 00:00 98.8 88 18 113/53 (73) 100 01/19/17 21:00 100 Nasal Cannula 2.00 01/19/17 20:08 98 Nasal Cannula 3.00 01/19/17 20:00 87 I/O 01/19/17 01/19/17 01/19/17 01/20/17 01/20/17 01/20/17 07:00 15:00 23:00 07:00 15:00 23:00 Intake Total 880 ml 720 ml 720 ml Output Total 1700 ml 500 ml 1050 ml 800 ml Balance -820 ml 220 ml -330 ml -800 ml Intake Oral 880 ml 720 ml 720 ml Output Urine Total 1150 ml 500 ml 200 ml 800 ml Chest Tube Drainage Total 550 ml 850 ml # Bowel Movements 1 1 0 Result Diagram: 01/19/17 1616 01/18/17 0630 Objective Remarks GENERAL: WBWN WM,NAD SKIN: Warm and dry. HEAD: Normocephalic. EYES: No scleral icterus. No injection or drainage. NECK: Supple, trachea midline. No JVD or lymphadenopathy. CARDIOVASCULAR: Regular rate and rhythm without murmurs, gallops, or rubs. RESPIRATORY: Breath sounds equal bilaterally. No accessory muscle use. Right chest tube draining GASTROINTESTINAL: Abdomen soft, non-tender, nondistended. MUSCULOSKELETAL: No cyanosis, or edema. BACK: Nontender without obvious deformity. No CVA tenderness. A/P Assessment and Plan Right Pl effusion, s/p Chest tube placement S/P Pericardiocentesis AF CAD HTN PLAN: Cont Chest tube suction Supplement 02 Aerosol nebs OOB in Chair Will remove chest tube when pl fluid drainge decreses. Chace Luna MD Jan 20, 2017 19:49
[2017-01-20] MEDS: ATORVASTATIN 40 MG TAB PO SCH (21:33)
[2017-01-21] VITALS (8 sets, daily range): BP systolic 84–120; BP diastolic 47–60; PULSE 91–99; RESP 16–20; TEMP 97.1–99.2; O2SAT 96–98
[2017-01-21] MEDS: TEMAZEPAM 15 MG CAP PO PRN (00:30)
[2017-01-21] MEDS: oxyCODONE/ACETAMINOPHEN 10 MG/325 MG TAB PO PRN ×2 (04:19→19:42)
[2017-01-21] MEDS: ARTIFICIAL TEARS OPTH SOLN 15 ML BTL EACH EYE SCH ×3 (06:00→21:52)
[2017-01-21] MEDS: METOPROLOL TARTRATE 25 MG TAB PO SCH ×4 (06:00→17:02)
[2017-01-21] MEDS: SUCRALFATE 1 GM/10 ML CUP PO SCH ×4 (06:41→21:48)
[2017-01-21] MEDS: LEVOTHYROXINE SODIUM 50 MCG TAB PO SCH (06:41)
[2017-01-21] MEDS: INSULIN ASPART SUPPLEMENTAL SCALE SQ SCH ×4 (06:41→21:48)
[2017-01-21] MEDS: CHLORHEXIDINE 0.12% (ORAL KIT) 15 ML CUP MT SCH ×2 (08:00→21:52)
--- NOTE | 2017-01-21 08:28 | HHI.PR ---
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 Then during this hospitalization the patient developed respiratory failure. He was on the ventilator. Also had pericardial effusion had pericardiocentesis done and has right pleural effusion and had a chest tube placed. He also developed atrial fibrillation with rapid ventricular rate. Currently he is weaned down to nasal cannula. Chest tube is draining. Has mild chest pain. 01/20: as per labeling specialist the plan is to continue Erbitux and Radiation therapy as outpatient, has invasive Adenocarcinoma of distal esophagus, has squamous cell carcinoma of skin, had surgery for Lung malignancy that was locally advanced status post surgery with positive margins, for chemo and radiation therapy, his PET scan performed for staging showed the esophageal mass, has anemia post blood transfusion, has Atrial Fibrillation not yet cleared by labeling specialist for discharge. Seen in his bedroom complaint about his chest tube not draining. 01/21: Seen in his bedroom and discussed with nurse Miss Goodwin continue chest tube Right Pl effusion, s/p Chest tube placement, as per audiovisual production specialist to remove chest tube when pleural fluid drainage decreases. no nausea, vomit or diarrhea. Objective Vital Signs Date Time Temp Pulse Resp B/P (MAP) Pulse Ox O2 Delivery O2 Flow Rate FiO2 01/21/17 05:19 18 01/21/17 05:00 110/52 (71) 01/21/17 04:00 97.2 91 16 84/47 (59) 96 01/21/17 00:19 18 01/21/17 00:00 98.0 99 16 119/58 (78) 98 01/20/17 20:00 98.3 92 16 112/54 (73) 97 01/20/17 16:00 97.3 91 20 105/53 (70) 97 01/20/17 13:41 99 Nasal Cannula 2.00 01/20/17 12:40 Room Air 21 01/20/17 12:00 97.8 84 20 112/57 (75) 97 I/O 01/20/17 01/20/17 01/20/17 01/21/17 01/21/17 01/21/17 07:00 15:00 23:00 07:00 15:00 23:00 Intake Total 720 ml 360 ml Output Total 1050 ml 800 ml 40 ml 790 ml Balance -330 ml -800 ml -40 ml -430 ml Intake Oral 720 ml 360 ml Output Urine Total 200 ml 800 ml 500 ml Chest Tube Drainage Total 850 ml 40 ml 290 ml # Bowel Movements 0 Result Diagram: 01/19/17 1616 01/18/17 0630 Imaging Last Impressions Chest X-Ray 01/17/17 0000 Signed Impressions: Service Date/Time: Tuesday, January 17, 2017 18:42 - CONCLUSION: 1. Interval improvement in bilateral pulmonary infiltrates. 2. More consolidative opacity is present at the left lung base without significant change. 3. Small left effusion without significant change. Bebeto Serrano MD Lower Extremity Ultrasound 01/09/17 0000 Signed Impressions: Service Date/Time: Monday, January 09, 2017 13:01 - CONCLUSION: No DVT is identified within the left lower extremity. Washington Marroquin MD Abdomen X-Ray 01/07/17 0000 Signed Impressions: Service Date/Time: Saturday, January 07, 2017 11:56 - CONCLUSION: Visualized portions of the lower chest demonstrate a presumed esophageal stent. Erik Simon MD Head CT 01/04/17 0000 Signed Impressions: Service Date/Time: Thursday, January 05, 2017 03:41 - CONCLUSION: 1. No acute intracranial abnormalities. Fluid in the mastoid air cells characteristic of mastoiditis. Kervin Krause MD CT Angiography 12/31/16 0000 Signed Impressions: Service Date/Time: Saturday, December 31, 2016 01:00 - CONCLUSION: 1. Study is negative for pulmonary embolism. 2. Pericardial effusion, diffuse patchy consolidation in both lungs, collapse left lower lobe, bilateral pleural effusions, esophageal stent, similar to yesterday's CT thorax. Kulwant Gupta MD Thoracentesis 12/30/16 0000 Signed Impressions: Service Date/Time: Friday, December 30, 2016 15:34 - CONCLUSION: Uncomplicated CT-guided thoracentesis. Kiran Harding MD Chest CT 12/29/16 0000 Signed Impressions: Service Date/Time: Friday, December 30, 2016 10:56 - CONCLUSION: 1. Moderate bilateral pleural effusions. 2. Areas of consolidation in the upper lobes bilaterally and in the right middle and right lower lobe. There is some combination of consolidation and atelectasis seen in the left lower lobe. Underlying diffuse processes should be considered including edema. 3. Esophageal stent in place. There is increased density within the stent which could be from fluid or soft tissue. 4. Non-specific mildly prominent lymph nodes in the mediastinum. 5. Moderate pericardial effusion. 6. Possible 3rd non-displaced right rib fracture. Washington Chou MD GI Procedure 12/25/16 0000 Signed Impressions: Service Date/Time: December 19:33 - CONCLUSION: Spot film as above. Everett Pollock MD FACR Barium Swallow X-Ray 12/20/16 0000 Signed Impressions: Service Date/Time: Tuesday, December 20, 2016 13:15 - CONCLUSION: 1. The distal half of the esophagus demonstrates irregular luminal narrowing consistent with the patient's history of esophageal adenocarcinoma. 2. Mild dilatation of the esophagus immediately proximal to the esophageal mass. However, there are no signs of obstruction. 3. Small hiatal hernia. Washington Marroquin MD Abdomen MRI 12/17/16 0000 Signed Impressions: Service Date/Time: Saturday, December 17, 2016 13:59 - CONCLUSION: 1. No acute finding is identified to explain the abdominal pain. 2. Stable thickening of the distal esophagus. There is a single mildly enlarged left gastric lymph node measuring 12 x 10 mm. 3. Moderate sized bilateral pleural effusions, left larger than right, with associated compressive atelectasis. Washington Marroquin MD Brain MRI 12/01/16 0000 Signed Impressions: Service Date/Time: Thursday, December 01, 2016 12:07 - CONCLUSION: Normal examination. Barrett Rodriguez MD Abdomen/Pelvis CT 11/29/16 [id number] Signed Impressions: Service Date/Time: Wednesday, November 30, 2016 01:35 - CONCLUSION: 1. Markedly abnormal appearance of the distal esophagus consistent with the history of esophageal carcinoma. 2. Atherosclerotic calcifications of the aorta and iliac vessels. 3. Cirrhotic appearance to the liver with a mildly nodular contour present. Erik Simon MD Procedures Right axillary art line 12/02/16 Left subclavian central venous line 12/02/16 (Dr. Delarosa) intubation 12/02/16 and 01/01/17 PCI with bare metal stent to LCx by Dr. Krause on 11/30/16 port removal 12/02/16 Dr. Rich. EUS with esophageal stent placement, food bolus removal 12/25/16 Dr. Tejeda Right thoracentesis 12/30/16 (Dr. Harding) Pericardiocentesis and pericardial drain 01/01/17 (Dr. Bueno) Placement of Left #10 [place] pigtail catheter 01/03. Was dislodged 01/09. Placement of right #10 [place] pigtail catheter 01/06 Other Results Laboratory Tests Test 11/30/16 01:15 11/30/16 15:45 11/30/16 18:20 12/01/16 05:20 Urine Hyaline Casts 3 /lpf Red Cell Morphology Comment NORMAL Iron Level 11 MCG/DL Total Iron Binding Capacity 269 MCG/DL Percent Iron Saturation 4.1 % Transferrin 192 MG/DL Vitamin B12 Level 345 PG/ML Red Blood Cell Folate 363 Differential Total Cells Counted 100 Neutrophils % (Manual) 77 % Band Neutrophils % 17 % Lymphocytes % 2 % Monocytes % 4 % Neutrophils # (Manual) 11.2 TH/MM3 Thyroid Stimulating Hormone 3rd Gen 0.555 uIU/ML Test 12/01/16 17:00 12/01/16 17:05 12/02/16 06:35 12/02/16 21:23 Urine Color LIGHT-BROWN Urine Turbidity CLOUDY Urine pH 6.0 Urine Specific [place] 1.023 Urine Protein 100 mg/dL Urine Glucose (UA) TRACE mg/dL Urine Ketones NEG mg/dL Urine Occult Blood LARGE Urine Nitrite NEG Urine Bilirubin NEG Urine Urobilinogen 2.0 MG/DL Urine Leukocyte Esterase TRACE Urine RBC 13 /hpf Urine WBC 12 /hpf Urine Squamous Epithelial Cells 7 /hpf Urine Transitional Epithelial Cells 2 /hpf Urine Amorphous Sediment RARE Urine Bacteria FEW /hpf Urine Mucus MANY /lpf Microscopic Urinalysis Comment CATH-CULTURE IND Ferritin 124 NG/ML Ammonia LESS THAN 10 MCMOL/L [id number] 298 mg/dL Ceruloplasmin 40 mg/dL Tumor Marker Alpha Fetoprotein 1.7 NG/ML Anti-Nuclear Antibody Screen NEG Mitochondria M2 Antibody LESS THAN 20.0 U Anti-Smooth Muscle Antibody Negative Hepatitis A IgM Antibody NEGATIVE Hepatitis B Surface Antigen NEGATIVE Hepatitis B Core IgM Antibody NEGATIVE Hepatitis C Antibody REACTIVE Lactic Acid Level 1.7 mmol/L Vancomycin Level Trough 15.3 MCG/ML Test 12/03/16 08:07 12/03/16 12:53 12/04/16 04:22 12/11/16 03:29 Venous Blood pH 7.43 Venous Blood Partial Pressure CO2 40 mmHg Venous Blood Partial Pressure O2 41 mmHg Venous Blood HCO3 26 mmol/L Venous Blood Oxygen Saturation 68 % Venous Blood Oxygen Content 8.3 Vol % Venous Blood Base Excess 2.1 mmol/L Hepatitis C RNA Genotype NOT DETECTED Hepatitis C RNA (PCR) IUs/ml LESS THAN 15 IU/mL Hepatitis C RNA (PCR) log IUs/ml LESS THAN 1.18 Haptoglobin 516 MG/DL Fibrinogen 436 mg/dL Blood Urea Nitrogen 52 MG/DL Creatinine 1.09 MG/DL Random Glucose 238 MG/DL Total Protein 5.9 GM/DL Albumin 2.0 GM/DL Calcium Level 7.3 MG/DL Magnesium Level 2.2 MG/DL Alkaline Phosphatase 74 U/L Aspartate Amino Transf (AST/SGOT) 91 U/L Alanine Aminotransferase (ALT/SGPT) 43 U/L Lactate Dehydrogenase 534 U/L Total Bilirubin 1.2 MG/DL Sodium Level 142 MEQ/L Potassium Level 3.2 MEQ/L Chloride Level 104 MEQ/L Carbon Dioxide Level 29.2 MEQ/L Triglycerides Level 123 MG/DL Cholesterol Level 100 MG/DL LDL Cholesterol 51 MG/DL HDL Cholesterol 24.3 MG/DL Cholesterol/HDL Ratio 4.11 RATIO Test 12/15/16 02:10 12/16/16 09:00 12/19/16 04:10 12/20/16 05:00 Direct Bilirubin 0.4 MG/DL Indirect Bilirubin 0.4 MG/DL Troponin I 0.09 NG/ML Helmet Cells OCC B-Type Natriuretic Peptide 498 PG/ML Test 12/23/16 06:45 12/25/16 21:42 12/30/16 15:00 12/31/16 04:10 Digoxin Level 0.8 NG/ML Nasal Screen MRSA (PCR) MRSA NOT DETECTED Prothrombin Time 13.0 SEC Prothromb Time International Ratio 1.2 RATIO Activated Partial Thromboplast Time 28.6 SEC Oxygen Delivery Device NRB Blood Gas Liter Flow 15 L/M Test 01/01/17 11:30 01/03/17 04:14 01/04/17 06:44 01/05/17 03:26 Pericardial Fluid pH 8.5 Pericardial Fluid WBC 5170 /MM3 Pericardial Fluid RBC 193255 /MM3 Pericardial Fluid Neutrophils 99 % Pericardial Fluid Lymphocytes 1 % Pericardial Fluid Total Protein 3.4 GM/DL Pericardial Fluid LDH 2922 U/L Pericardial Fluid Glucose 101 MG/DL Random Vancomycin Level 4.1 COMMENT Lipase 60 U/L Total Creatine Kinase 41 U/L Test 01/06/17 04:04 01/06/17 12:30 01/06/17 15:40 01/11/17 06:30 Protein Corrected Calcium 8.4 MG/DL Body Fluid Amylase Source PLEURAL FLUID Body Fluid Amylase 7 U/L Pleural Fluid pH 8.5 Pleural Fluid WBC 110 /MM3 Pleural Fluid RBC 1056 /MM3 Pleural Fluid Neutrophils 53 % Pleural Fluid Lymphocytes 40 % Pleural Fluid Monocytes 2 % Pleural Fluid Histiocytes 2 % Pleural Fluid Mesothelial Cells 3 % Pleural Fluid Total Protein 1.4 GM/DL Pleural Fluid LDH 88 U/L Pleural Fluid Glucose 277 MG/DL Blood Gas Puncture Site RT RADIAL Blood Gas Patient Temperature 98.6 Blood Gas HCO3 29 mmol/L Blood Gas Base Excess 4.2 mmol/L Blood Gas Oxygen Saturation 92 % Arterial Blood pH 7.38 Arterial Blood Partial Pressure CO2 50 mmHg Arterial Blood Partial Pressure O2 75 mmHg Arterial Blood Oxygen Content 11.9 Vol % Arterial Blood Carboxyhemoglobin 1.9 % Arterial Blood Methemoglobin 0.7 % Blood Gas Hemoglobin 9.1 G/DL Blood Gas Ventilator Setting CPAP 5/5 Blood Gas Inspired Oxygen 35 % Blood Urea Nitrogen 16 MG/DL Creatinine 0.46 MG/DL Random Glucose 141 MG/DL Total Protein 5.5 GM/DL Albumin 1.6 GM/DL Calcium Level 7.8 MG/DL Phosphorus Level 3.0 MG/DL Magnesium Level 1.8 MG/DL Alkaline Phosphatase 86 U/L Aspartate Amino Transf (AST/SGOT) 19 U/L Alanine Aminotransferase (ALT/SGPT) 13 U/L Total Bilirubin 0.4 MG/DL Sodium Level 137 MEQ/L Potassium Level 4.1 MEQ/L Chloride Level 99 MEQ/L Carbon Dioxide Level 31.7 MEQ/L Test 01/16/17 06:00 01/17/17 18:45 01/18/17 06:30 01/19/17 16:16 Blood Urea Nitrogen 15 MG/DL 17 MG/DL Creatinine 0.47 MG/DL 0.44 MG/DL Random Glucose 119 MG/DL 65 MG/DL Total Protein 5.6 GM/DL Albumin 1.8 GM/DL Calcium Level 7.6 MG/DL 7.9 MG/DL Alkaline Phosphatase 124 U/L Aspartate Amino Transf (AST/SGOT) 20 U/L Alanine Aminotransferase (ALT/SGPT) 11 U/L Total Bilirubin 0.4 MG/DL Sodium Level 134 MEQ/L 135 MEQ/L Potassium Level 4.1 MEQ/L 4.3 MEQ/L Chloride Level 97 MEQ/L 96 MEQ/L Carbon Dioxide Level 31.2 MEQ/L 34.2 MEQ/L Platelet Estimate NORMAL Platelet Morphology Comment NORMAL Ovalocytes 1+ Anion Gap 5 MEQ/L Estimat Glomerular Filtration Rate 197 ML/MIN White Blood Count 6.5 TH/MM3 Red Blood Count 3.21 MIL/MM3 Hemoglobin 9.3 GM/DL Hematocrit 28.6 % Mean Corpuscular Volume 89.3 FL Mean Corpuscular Hemoglobin 29.2 PG Mean Corpuscular Hemoglobin Concent 32.7 % Red Cell Distribution Width 19.6 % Platelet Count 270 TH/MM3 Mean Platelet Volume 8.3 FL Neutrophils (%) (Auto) 64.5 % Lymphocytes (%) (Auto) 25.5 % Monocytes (%) (Auto) 7.6 % Eosinophils (%) (Auto) 1.6 % Basophils (%) (Auto) 0.8 % Neutrophils # (Auto) 4.2 TH/MM3 Lymphocytes # (Auto) 1.7 TH/MM3 Monocytes # (Auto) 0.5 TH/MM3 Eosinophils # (Auto) 0.1 TH/MM3 Basophils # (Auto) 0.1 TH/MM3 CBC Comment DIFF FINAL Differential Comment Objective Remarks GENERAL: laying in bed, appears comfortable CARDIOVASCULAR: rrr w 2/6 murmur. RESPIRATORY: Clear to auscultation. Breath sounds equal bilaterally. No wheezes. right chest tube to suction GASTROINTESTINAL: Abdomen soft, non-tender, nondistended. MUSCULOSKELETAL: laying in bed, able to move his upper extremities. large decub ulcer present NEURO: awake, alert , answers questions PSYCH: calm, pleasant. not agitated Medications and IVs Current Medications Medications (Trade) Dose Ordered Sig/Geovanny Route Start Time Stop Time Status Last Admin (NS Flush) 2 ml UNSCH PRN IV FLUSH 11/30/16 02:45 12/24/16 09:59 (NS Flush) 2 ml BID IV FLUSH 11/30/16 09:00 9/5/17 21:33 (Rere-Colace) 1 tab BID PO 11/30/16 09:00 01/20/17 21:33 (Milk Of Magnesia Liq) 30 ml Q12H PRN PO 11/30/16 02:45 (Senokot) 17.2 mg Q12H PRN PO 11/30/16 02:45 (Dulcolax Supp) 10 mg DAILY PRN RECTAL 11/30/16 02:45 (Lactulose Liq) 30 ml DAILY PRN PO 11/30/16 02:45 Miscellaneous Information Patient in critical care unit? Ass... Q361D .XX 11/30/16 05:15 (Tylenol) 325 mg Q4H PRN PO 11/30/16 13:45 12/13/16 17:13 (Atropine Inj) 0.5 mg UNSCH PRN IV 11/30/16 13:45 (Zofran Inj) 4 mg Q4H PRN IV 11/30/16 13:45 12/24/16 22:41 (NS Flush) 5 ml Q21D IV FLUSH 11/30/16 18:00 12/21/16 17:19 (Heparin Central Flush) 500 units Q21D IV FLUSH 11/30/16 18:00 11/30/16 18:04 (NS Flush) 5 ml UNSCH PRN IV FLUSH 11/30/16 18:00 (Heparin Central Flush) 250 units UNSCH PRN IV FLUSH 11/30/16 18:00 01/16/17 06:25 (Romazicon Inj) 0.2 mg Q1M PRN IV PUSH 12/01/16 13:00 (Tylenol 650 Mg/ 20 ml Liq) 650 mg Q6H PRN PO 12/01/16 17:30 12/02/16 01:07 (Miralax) 17 gm DAILY PO 12/04/16 09:00 01/20/17 09:03 (Theragran) 1 tab DAILY PO 12/05/16 09:00 01/20/17 09:01 (Ativan Inj) 1 mg Q4H PRN IV PUSH 12/09/16 15:15 12/31/16 14:16 (Haldol Inj) 2 mg Q8H PRN IM 12/10/16 17:00 (Lipitor) 40 mg HS PO 12/12/16 21:00 Future hold 01/20/17 21:33 (NS Flush) See Protocol DAILY IV FLUSH 12/13/16 09:00 01/20/17 09:00 (NS Flush) See Protocol UNSCH PRN IV FLUSH 12/12/16 17:00 (Heparin Central Flush) See Protocol DAILY IV FLUSH 12/13/16 09:00 01/20/17 09:02 (Heparin Central Flush) See Protocol UNSCH PRN IV FLUSH 12/12/16 17:00 (NS Flush) UNSCH PRN IV FLUSH 12/12/16 17:00 12/19/16 01:59 (Nitrostat Sl) 0.4 mg Q5M PRN SL 12/16/16 00:15 (Ativan) 0.5 mg DAILY PRN PO 12/18/16 15:45 Future Hold 12/19/16 08:29 (Cardizem) 90 mg Q6H PO 12/18/16 23:00 Future Hold 12/25/16 12:14 (Lanoxin) 0.25 mg DAILY PO 12/22/16 09:00 Future Hold 12/25/16 08:06 (Carafate Liq) 1 gm ACHS PO 12/22/16 11:00 01/21/17 06:41 (Lopressor Inj) 5 mg Q1HR PRN IV PUSH 12/22/16 09:45 12/30/16 10:37 (Protonix Inj) 40 mg Q12H IV PUSH 12/22/16 10:00 01/20/17 21:32 (Lopressor) 25 mg Q6HR PO 12/22/16 13:00 01/20/17 12:14 (Duoneb Neb) 1 ampule Q2HR NEB PRN INH 12/25/16 21:00 01/15/17 15:37 (Plavix) 75 mg DAILY PO 12/29/16 09:00 01/20/17 09:01 (Ecotrin Ec) 162 mg DAILY PO 12/29/16 09:00 Future hold 01/20/17 09:02 (Deltasone) 5 mg DAILY PO 12/29/16 09:00 Future hold 01/20/17 09:03 (Peridex 0.12% Liq) 15 ml BID@08,20 MT 01/01/17 20:00 01/20/17 20:00 (Tears Naturale Opth Soln) 1 drop Q8HR EACH EYE 01/04/17 14:00 01/21/17 06:00 (Levemir Inj) 30 units Q12HR SQ 01/06/17 21:00 01/20/17 09:00 (Cordarone) 200 mg Q12HR PO 01/07/17 10:00 01/20/17 21:33 (Synthroid) 50 mcg DAILY@0600 PO 01/11/17 06:00 01/21/17 06:41 (Percocet 10-325 Mg) 1 tab Q4H PRN PO 01/10/17 14:15 01/21/17 04:19 (Roxicodone) 5 mg Q4H PRN PO 01/10/17 14:15 01/20/17 23:19 (Restoril) 15 mg HS PRN PO 01/11/17 11:45 01/21/17 00:30 (D50w (Vial) Inj) 50 ml UNSCH PRN IV 01/11/17 12:15 (Glucagon Inj) 1 mg UNSCH PRN OTHER 01/11/17 12:15 (NovoLOG SUPPLEMENTAL SCALE) 1 ACHS SLIDING SCALE SQ 01/11/17 16:00 01/19/17 21:05 (Lasix Inj) 20 mg Q12HR IV PUSH 01/12/17 21:00 01/20/17 21:33 A/P Assessment and Plan 1. Acute metabolic Encephalopathy Most likely secondary to Hypoxia, sepsis, Resolved. - Completed therapy with Thiamine for Possible alcohol withdrawal 12/05/16, improved. - Currently off all sedation. On Percocet 10 q4. Oxycodone additional 5 as needed for breakthrough. - Restoril 15 qhs PRN sleep 2. Acute Hypoxemic Respiratory failure- Resolved. History of COPD, Tobacco abuse, Bilateral Pleural Effusions - Emergently intubated and placed on mechanical ventilation 12/02/16, extubated 12/03/16 - Re intubated 01/01/17 PRVC ventilation 16/550/1/5/35. Extubated 01/06 - Now on nasal cannula. - CT chest revealed bilateral pleural effusions. Thoracentesis -1200 cc . Placement of Left #10 [place] pigtail catheter 01/03. Was dislodged 01/09. Placement of right #10 [place] pigtail catheter 01/06. - Right pleural fluid Cytology negative for malignancy 01/06 and Pleural fluid cytology negative 12/30 audiovisual production specialist following to remove Chest tube when Pleural fluid drainage decreases. 3. Pericardial effusion, tamponade status post pericardiocentesis 01/01/17 Atrial fibrillation with RVR currently normal sinus rhythm NSTEMI Dynamic LVOT obstruction Coronary artery disease status post bare metal stent to left circumflex Krause 12/01 - Emergency Pericardiocentesis drains -01/01. Cc. Cultures no growth. Removed drain 01/06, Followup limited Echo 01/07 EF 60-65%. Trivial small pericardial effusion present - Cardiac catheterization 12/01 revealed EF around 60%. Left main normal. RCA normal. LAD 70% ostial. Bare stent left circumflex 70%. - Resume ASA 162 mg daily, d/c rectal ASA/ Continue Plavix 75 mg daily - Continue amiodarone 200 mg by mouth every 12 hours. - Continue Metoprolol 25 mg every 6 hours - 2-D echo no veg, EF 50-55%. Mild MR, mild AR. Pseudo-outflow obstruction due to concentric hypertrophy and hyperdynamic ventricle - Continue Lasix to 20 g IV twice a day. KCL Effervescent 25 bid x2. - Holding home medications of losartan 100 mg, amlodipine 10 mg daily, normotensive. - Continue atorvastatin 40 by mouth daily for dyslipidemia. - Pericardial fluid cytology 01/01 - negative for malignancy 4. Invasive adenocarcinoma of the esophagus Liver cirrhosis - Tolerating mechanical soft, thin liquids. Speech therapy has signed off. - Patient's intake improving. Discontinue TPN - Has biopsy proven invasive adenocarcinoma of esophagus - Status post EUS/esophageal stent placement 12/25 Dr. Tejeda. - IV Protonix twice a day continue. - Carafate 1 g by mouth daily per her GI - Surgery removed port - Patient declined PEG. Per surgery repeat calorie count. Tolerating supplements. 5. Septic shock-resolved MSSA bacteremia Ycnoja-f-Rroc infection status post removal Pseudomonas pneumonia - Previously Rapid clinical improvement after Cjbdhg-v-Ogai was removed. remains off all pressors - Catheter tip culture blood culture and wound culture also positive for MSSA - Completed Rifampin, for synergy per ID (on po now), Completed Ancef, Levaquin. - Infectious disease DrJagjit Dimayuga. 2D Echo neg for endocarditis, Unable to do PAM due to esophageal' Cancer, now off antibiotics. 6. 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 Bell is following - Status post surgical resection for L parotid SCC at [facility] 10/01 - Hematology plans to give weekly Erbitux and XRT outpatient. - Transfuse as needed for hemoglobin less than 8 7. DM II continue long lasting insulin and sliding scale, 8. Hypothyroidism continue Hormonal replacement, is on Prednisone 5 mg daily 9. Sacral decubitus ulcer - Wound care following. Open to air DVT prop - No pharmacological prophylaxis secondary to hemoptysis. Will discuss with GI when we can resume prophylaxis. Patient has LE skin breakdown. Hold SCDs skin breakdown BLE. GI Prop - Pantoprazole 40 iv twice a day Full Code Palliative care is following. Discharge Planning Patient still with chest tube, awaiting final by audiovisual production specialist. Rick Alfaro MD Jan 21, 2017 08:28
[2017-01-21] MEDS: predniSONE 5 MG TAB PO SCH (08:51)
[2017-01-21] MEDS: POLYETHYLENE GLYCOL 17 GM PKG PO SCH (08:51)
[2017-01-21] MEDS: DOCUSATE SODIUM 50 MG/SENNA 8.6 MG TAB PO SCH ×2 (08:51→21:00)
[2017-01-21] MEDS: CLOPIDOGREL 75 MG TAB PO SCH (08:51)
[2017-01-21] MEDS: MULTIVITAMIN TAB PO SCH (08:51)
[2017-01-21] MEDS: AMIODARONE 200 MG TAB PO SCH ×2 (08:51→21:48)
[2017-01-21] MEDS: FUROSEMIDE 20 MG/2 ML VIAL IV PUSH SCH ×2 (08:52→21:51)
[2017-01-21] MEDS: ASPIRIN EC 81 MG TABEC PO SCH (08:52)
[2017-01-21] MEDS: SODIUM CHLORIDE 0.9% FLUSH 10 ML FLUSH IV FLUSH SCH ×3 (08:53→21:52)
[2017-01-21] MEDS: PANTOPRAZOLE SODIUM 40 MG VIAL IV PUSH SCH ×2 (09:03→21:50)
[2017-01-21] MEDS: INSULIN DETEMIR 100 UNITS/ML VIAL SQ SCH ×2 (09:05→21:46)
--- NOTE | 2017-01-21 17:45 | HHI.PR ---
Subjective Remarks 61 YOWM with COPD,DM,AF Had Pericardial effusion and Pericardiocentesis Mild SOB No Fever Up in chair. Right chest tube drained 350 cc Objective Vital Signs Vital Signs Date Time Temp Pulse Resp B/P (MAP) Pulse Ox O2 Delivery O2 Flow Rate FiO2 01/21/17 17:34 96 Nasal Cannula 2.00 01/21/17 16:00 99.2 97 18 107/52 (70) 96 01/21/17 12:00 98.3 96 18 111/54 (73) 98 01/21/17 10:56 Room Air 21 01/21/17 08:00 97.1 99 18 95/47 (63) 98 01/21/17 05:19 18 01/21/17 05:00 110/52 (71) 01/21/17 04:00 97.2 91 16 84/47 (59) 96 01/21/17 00:19 18 01/21/17 00:00 98.0 99 16 119/58 (78) 98 01/20/17 20:00 98.3 92 16 112/54 (73) 97 I/O 01/20/17 01/20/17 01/20/17 01/21/17 01/21/17 01/21/17 06:59 14:59 22:59 06:59 14:59 22:59 Intake Total 720 ml 360 ml Output Total 1050 ml 800 ml 40 ml 790 ml Balance -330 ml -800 ml -40 ml -430 ml Intake Oral 720 ml 360 ml Output Urine Total 200 ml 800 ml 500 ml Chest Tube Drainage Total 850 ml 40 ml 290 ml # Bowel Movements 0 Result Diagram: 01/19/17 1616 01/18/17 0630 Objective Remarks GENERAL: WBWN WM,NAD SKIN: Warm and dry. HEAD: Normocephalic. EYES: No scleral icterus. No injection or drainage. NECK: Supple, trachea midline. No JVD or lymphadenopathy. CARDIOVASCULAR: Regular rate and rhythm without murmurs, gallops, or rubs. RESPIRATORY: Breath sounds equal bilaterally. No accessory muscle use. Right chest tube draining GASTROINTESTINAL: Abdomen soft, non-tender, nondistended. MUSCULOSKELETAL: No cyanosis, or edema. BACK: Nontender without obvious deformity. No CVA tenderness. A/P Assessment and Plan Right Pl effusion, s/p Chest tube placement S/P Pericardiocentesis AF CAD HTN PLAN: Cont Chest tube suction Supplement 02 Aerosol nebs OOB in Chair Will remove chest tube when pl fluid drainge decreses. Chace Luna MD Jan 21, 2017 17:45
[2017-01-21] MEDS: ATORVASTATIN 40 MG TAB PO SCH (21:48)
--- NOTE | 2017-01-21 23:24 | PD.ONC.PN ---
Subjective Subjective Remarks chest tube with drainage breathing stable up in the chair ongoing PT/supportive care Objective Data Date Time Temp Pulse Resp B/P (MAP) Pulse Ox O2 Delivery O2 Flow Rate FiO2 01/21/17 17:34 96 Nasal Cannula 2.00 01/21/17 16:00 99.2 97 18 107/52 (70) 96 01/21/17 12:00 98.3 96 18 111/54 (73) 98 01/21/17 10:56 Room Air 21 01/21/17 08:00 97.1 99 18 95/47 (63) 98 01/21/17 05:19 18 01/21/17 05:00 110/52 (71) 01/21/17 04:00 97.2 91 16 84/47 (59) 96 01/21/17 00:19 18 01/21/17 00:00 98.0 99 16 119/58 (78) 98 Result Diagram: 01/19/17 1616 01/18/17 0630 Administered Medications Medications (Trade) Dose Ordered Sig/Geovanny Route PRN Reason Start Time Stop Time Status Last Admin Dose Admin Sodium Chloride (NS Flush) 2 ml UNSCH PRN IV FLUSH FLUSH AFTER USING IV ACCESS 11/30/16 02:45 12/24/16 09:59 Sodium Chloride (NS Flush) 2 ml BID IV FLUSH 11/30/16 09:00 01/21/17 21:52 Senna/Docusate Sodium (Rere-Colace) 1 tab BID PO 11/30/16 09:00 01/21/17 08:51 Acetaminophen (Tylenol) 325 mg Q4H PRN PO PAIN SCALE 1 TO 2 11/30/16 13:45 12/13/16 17:13 Ondansetron HCl (Zofran Inj) 4 mg Q4H PRN IV NAUSEA 11/30/16 13:45 12/24/16 22:41 Sodium Chloride (NS Flush) 5 ml Q21D IV FLUSH 11/30/16 18:00 12/21/16 17:19 Heparin Sodium (Porcine) (Heparin Central Flush) 500 units Q21D IV FLUSH 11/30/16 18:00 11/30/16 18:04 Heparin Sodium (Porcine) (Heparin Central Flush) 250 units UNSCH PRN IV FLUSH FLUSH AFTER USING IV ACCESS 11/30/16 18:00 01/16/17 06:25 Acetaminophen (Tylenol 650 Mg/ 20 ml Liq) 650 mg Q6H PRN PO FEVER 12/01/16 17:30 12/02/16 01:07 Polyethylene Glycol (Miralax) 17 gm DAILY PO 12/04/16 09:00 01/21/17 08:51 Multivitamins (Theragran) 1 tab DAILY PO 12/05/16 09:00 01/21/17 08:51 Lorazepam (Ativan Inj) 1 mg Q4H PRN IV PUSH ANXIETY AND/OR AGITATION 12/09/16 15:15 12/31/16 14:16 Atorvastatin Calcium (Lipitor) 40 mg HS PO 12/12/16 21:00 Future hold 01/21/17 21:48 Sodium Chloride (NS Flush) See Protocol DAILY IV FLUSH 12/13/16 09:00 01/21/17 08:53 Heparin Sodium (Porcine) (Heparin Central Flush) See Protocol DAILY IV FLUSH 12/13/16 09:00 01/21/17 08:53 Sodium Chloride (NS Flush) UNSCH PRN IV FLUSH SEE PROTOCOL TABLE 12/12/16 17:00 12/19/16 01:59 Lorazepam (Ativan) 0.5 mg DAILY PRN PO ANXIETY 12/18/16 15:45 Future Hold 12/19/16 08:29 Diltiazem HCl (Cardizem) 90 mg Q6H PO 12/18/16 23:00 Future Hold 12/25/16 12:14 Digoxin (Lanoxin) 0.25 mg DAILY PO 12/22/16 09:00 Future Hold 12/25/16 08:06 Sucralfate (Carafate Liq) 1 gm ACHS PO 12/22/16 11:00 01/21/17 21:48 Metoprolol Tartrate (Lopressor Inj) 5 mg Q1HR PRN IV PUSH RAPID HEART RATE 12/22/16 09:45 12/30/16 10:37 Pantoprazole Sodium (Protonix Inj) 40 mg Q12H IV PUSH 12/22/16 10:00 01/21/17 21:50 Metoprolol Tartrate (Lopressor) 25 mg Q6HR PO 12/22/16 13:00 01/20/17 12:14 Albuterol/ Ipratropium (Duoneb Neb) 1 ampule Q2HR NEB PRN INH WHEEZING 12/25/16 21:00 01/15/17 15:37 Clopidogrel Bisulfate (Plavix) 75 mg DAILY PO 12/29/16 09:00 01/21/17 08:51 Aspirin (Ecotrin Ec) 162 mg DAILY PO 12/29/16 09:00 Future hold 01/21/17 08:52 Prednisone (Deltasone) 5 mg DAILY PO 12/29/16 09:00 Future hold 01/21/17 08:51 Chlorhexidine Gluconate (Peridex 0.12% Liq) 15 ml BID@08,20 MT 01/01/17 20:00 01/21/17 21:52 Artificial Tears (Tears Naturale Opth Soln) 1 drop Q8HR EACH EYE 01/04/17 14:00 01/21/17 21:52 Insulin Detemir (Levemir Inj) 30 units Q12HR SQ 01/06/17 21:00 01/21/17 21:46 Amiodarone HCl (Cordarone) 200 mg Q12HR PO 01/07/17 10:00 01/21/17 21:48 Levothyroxine Sodium (Synthroid) 50 mcg DAILY@0600 PO 01/11/17 06:00 01/21/17 06:41 Oxycodone/ Acetaminophen (Percocet 10-325 Mg) 1 tab Q4H PRN PO PAIN 1-10 01/10/17 14:15 01/21/17 19:42 Oxycodone HCl (Roxicodone) 5 mg Q4H PRN PO BREAKTHROUGH PAIN 01/10/17 14:15 01/20/17 23:19 Temazepam (Restoril) 15 mg HS PRN PO SLEEP 01/11/17 11:45 01/21/17 00:30 Insulin Aspart (NovoLOG SUPPLEMENTAL SCALE) 1 ACHS SLIDING SCALE SQ 01/11/17 16:00 01/21/17 21:48 Furosemide (Lasix Inj) 20 mg Q12HR IV PUSH 01/12/17 21:00 01/21/17 21:51 Objective Remarks GENERAL: nad SKIN: Warm and dry. NECK: Supple, trachea midline. No JVD or lymphadenopathy. LYMPHATIC: No adenopathy. CARDIOVASCULAR: Regular rate and rhythm without murmurs. RESPIRATORY: Breath sounds equal bilaterally. No accessory muscle use. GASTROINTESTINAL: Abdomen soft, non-tender, nondistended. EXTREMITIES: No cyanosis, or edema. Assessment/Plan Problem List: (1) Esophageal adenocarcinoma ICD Codes: C15.9 - Malignant neoplasm of esophagus, unspecified Status: Acute Plan: --EUS with esophageal stent placement on 12/25 --++hemoptysis --we plan to give weekly Erbitux and XRT outpatient. --patient had OP EGD with biopsy, pathology showed adenocarcinoma. --EGD/Colonoscopy, 11/20/16--showed long stricture in the mid esophagus and distal esophagus, multiple biopsies were performed Pathology revealed invasive adenocarcinoma- distal esophagus --XRT simulation done 12/19. (2) SCC (squamous cell carcinoma) ICD Codes: C44.92 - Squamous cell carcinoma of skin, unspecified Status: Acute Plan: --has a head and neck, lung malignancy which was locally advanced. --received definitive treatment with surgery. Post surgery he had positive margins and some poor risk features and he was about to get concurrent chemotherapy and radiation and adjuvantly to achieve local control of the disease --PET scan to stage his disease prior to treatment showed an esophageal mass (3) Normocytic anemia ICD Codes: D64.9 - Anemia, unspecified Status: Acute Plan: --hgb stable --transfuse packed red blood cells if his hemoglobin drops below 8.5 --s/p iron infusion (4) Afib ICD Codes: I48.91 - Unspecified atrial fibrillation Status: Acute Plan: --cardiology following. --s/p chest tube placement --on Plavix --on ASA --Amiodarone (5) NSTEMI (non-ST elevated myocardial infarction) ICD Codes: I21.4 - Non-ST elevation (NSTEMI) myocardial infarction Status: Chronic Plan: --had elevated troponin and ST-segment changes consistent with acute [place]. 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 Also with a new diagnosis of early stage gastric cancer Plan 1. Hb stable --no blood products 2. continue supportive care 3. plan for treatment once outpatient Problem Qualifiers (1) Afib: Brant Bell MD Jan 21, 2017 23:24
[2017-01-22] VITALS (8 sets, daily range): BP systolic 92–125; BP diastolic 44–57; PULSE 84–95; RESP 16–19; TEMP 97.1–98.3; O2SAT 93–99
[2017-01-22] MEDS: oxyCODONE/ACETAMINOPHEN 10 MG/325 MG TAB PO PRN ×4 (00:31→21:37)
[2017-01-22] MEDS: METOPROLOL TARTRATE 25 MG TAB PO SCH ×4 (00:34→17:30)
[2017-01-22] MEDS: LEVOTHYROXINE SODIUM 50 MCG TAB PO SCH (06:17)
[2017-01-22] MEDS: SUCRALFATE 1 GM/10 ML CUP PO SCH ×4 (06:17→20:35)
[2017-01-22] MEDS: ARTIFICIAL TEARS OPTH SOLN 15 ML BTL EACH EYE SCH ×3 (06:20→20:37)
[2017-01-22] MEDS: INSULIN ASPART SUPPLEMENTAL SCALE SQ SCH ×4 (06:23→20:40)
[2017-01-22] MEDS: CHLORHEXIDINE 0.12% (ORAL KIT) 15 ML CUP MT SCH ×2 (08:00→20:00)
[2017-01-22] MEDS: SODIUM CHLORIDE 0.9% FLUSH 10 ML FLUSH IV FLUSH SCH ×3 (09:00→20:36)
[2017-01-22] MEDS: INSULIN DETEMIR 100 UNITS/ML VIAL SQ SCH ×2 (09:00→20:39)
[2017-01-22] MEDS: DOCUSATE SODIUM 50 MG/SENNA 8.6 MG TAB PO SCH ×2 (09:00→20:40)
[2017-01-22] MEDS: CLOPIDOGREL 75 MG TAB PO SCH (09:00)
[2017-01-22] MEDS: POLYETHYLENE GLYCOL 17 GM PKG PO SCH (09:00)
[2017-01-22] MEDS: predniSONE 5 MG TAB PO SCH (09:01)
[2017-01-22] MEDS: PANTOPRAZOLE SODIUM 40 MG VIAL IV PUSH SCH ×2 (09:01→20:35)
[2017-01-22] MEDS: MULTIVITAMIN TAB PO SCH (09:01)
[2017-01-22] MEDS: ASPIRIN EC 81 MG TABEC PO SCH (09:01)
[2017-01-22] MEDS: AMIODARONE 200 MG TAB PO SCH ×2 (09:01→20:35)
[2017-01-22] MEDS: FUROSEMIDE 20 MG/2 ML VIAL IV PUSH SCH ×2 (09:03→21:45)
--- NOTE | 2017-01-22 10:35 | PD.ONC.PN ---
Subjective Subjective Remarks Afebrile overnight. 1100cc drainage from CT/24 hours. Has dyspnea when the chest tube gets full and doesn't drain as well. Otherwise denies dyspnea. Objective Data Date Time Temp Pulse Resp B/P (MAP) Pulse Ox O2 Delivery O2 Flow Rate FiO2 01/22/17 09:49 93 21 01/22/17 08:04 97.1 84 16 102/51 (68) 99 01/22/17 06:33 Room Air 01/22/17 05:20 97.8 88 18 125/57 (79) 99 01/22/17 00:00 97.5 90 18 106/53 (70) 99 01/22/17 00:00 Room Air 01/21/17 20:00 Room Air 01/21/17 20:00 97 01/21/17 20:00 98.5 99 20 120/60 (80) 97 01/21/17 17:34 96 Nasal Cannula 2.00 01/21/17 16:00 99.2 97 18 107/52 (70) 96 01/21/17 12:00 98.3 96 18 111/54 (73) 98 01/21/17 10:56 Room Air 21 01/22/17 01/22/17 01/22/17 07:00 15:00 23:00 Intake Total 240 ml Output Total 750 ml 1100 ml Balance -510 ml -1100 ml Result Diagram: 01/19/17 1616 01/18/17 0630 Administered Medications Medications (Trade) Dose Ordered Sig/Geovanny Route PRN Reason Start Time Stop Time Status Last Admin Dose Admin Sodium Chloride (NS Flush) 2 ml UNSCH PRN IV FLUSH FLUSH AFTER USING IV ACCESS 11/30/16 02:45 12/24/16 09:59 Sodium Chloride (NS Flush) 2 ml BID IV FLUSH 11/30/16 09:00 01/21/17 21:52 Senna/Docusate Sodium (Rere-Colace) 1 tab BID PO 11/30/16 09:00 01/22/17 09:00 Acetaminophen (Tylenol) 325 mg Q4H PRN PO PAIN SCALE 1 TO 2 11/30/16 13:45 12/13/16 17:13 Ondansetron HCl (Zofran Inj) 4 mg Q4H PRN IV NAUSEA 11/30/16 13:45 12/24/16 22:41 Sodium Chloride (NS Flush) 5 ml Q21D IV FLUSH 11/30/16 18:00 12/21/16 17:19 Heparin Sodium (Porcine) (Heparin Central Flush) 500 units Q21D IV FLUSH 11/30/16 18:00 11/30/16 18:04 Heparin Sodium (Porcine) (Heparin Central Flush) 250 units UNSCH PRN IV FLUSH FLUSH AFTER USING IV ACCESS 11/30/16 18:00 01/16/17 06:25 Acetaminophen (Tylenol 650 Mg/ 20 ml Liq) 650 mg Q6H PRN PO FEVER 12/01/16 17:30 12/02/16 01:07 Polyethylene Glycol (Miralax) 17 gm DAILY PO 12/04/16 09:00 01/21/17 08:51 Multivitamins (Theragran) 1 tab DAILY PO 12/05/16 09:00 01/22/17 09:01 Lorazepam (Ativan Inj) 1 mg Q4H PRN IV PUSH ANXIETY AND/OR AGITATION 12/09/16 15:15 12/31/16 14:16 Atorvastatin Calcium (Lipitor) 40 mg HS PO 12/12/16 21:00 Future hold 01/21/17 21:48 Sodium Chloride (NS Flush) See Protocol DAILY IV FLUSH 12/13/16 09:00 01/21/17 08:53 Heparin Sodium (Porcine) (Heparin Central Flush) See Protocol DAILY IV FLUSH 12/13/16 09:00 01/22/17 09:01 Sodium Chloride (NS Flush) UNSCH PRN IV FLUSH SEE PROTOCOL TABLE 12/12/16 17:00 12/19/16 01:59 Lorazepam (Ativan) 0.5 mg DAILY PRN PO ANXIETY 12/18/16 15:45 Future Hold 12/19/16 08:29 Diltiazem HCl (Cardizem) 90 mg Q6H PO 12/18/16 23:00 Future Hold 12/25/16 12:14 Digoxin (Lanoxin) 0.25 mg DAILY PO 12/22/16 09:00 Future Hold 12/25/16 08:06 Sucralfate (Carafate Liq) 1 gm ACHS PO 12/22/16 11:00 01/22/17 06:17 Metoprolol Tartrate (Lopressor Inj) 5 mg Q1HR PRN IV PUSH RAPID HEART RATE 12/22/16 09:45 12/30/16 10:37 Pantoprazole Sodium (Protonix Inj) 40 mg Q12H IV PUSH 12/22/16 10:00 01/22/17 09:01 Metoprolol Tartrate (Lopressor) 25 mg Q6HR PO 12/22/16 13:00 01/22/17 06:18 Albuterol/ Ipratropium (Duoneb Neb) 1 ampule Q2HR NEB PRN INH WHEEZING 12/25/16 21:00 01/15/17 15:37 Clopidogrel Bisulfate (Plavix) 75 mg DAILY PO 12/29/16 09:00 01/22/17 09:00 Aspirin (Ecotrin Ec) 162 mg DAILY PO 12/29/16 09:00 Future hold 01/22/17 09:01 Prednisone (Deltasone) 5 mg DAILY PO 12/29/16 09:00 Future hold 01/22/17 09:01 Chlorhexidine Gluconate (Peridex 0.12% Liq) 15 ml BID@08,20 MT 01/01/17 20:00 01/21/17 21:52 Artificial Tears (Tears Naturale Opth Soln) 1 drop Q8HR EACH EYE 01/04/17 14:00 01/22/17 06:20 Insulin Detemir (Levemir Inj) 30 units Q12HR SQ 01/06/17 21:00 01/21/17 21:46 Amiodarone HCl (Cordarone) 200 mg Q12HR PO 01/07/17 10:00 01/22/17 09:01 Levothyroxine Sodium (Synthroid) 50 mcg DAILY@0600 PO 01/11/17 06:00 01/22/17 06:17 Oxycodone/ Acetaminophen (Percocet 10-325 Mg) 1 tab Q4H PRN PO PAIN 1-10 01/10/17 14:15 01/22/17 06:18 Oxycodone HCl (Roxicodone) 5 mg Q4H PRN PO BREAKTHROUGH PAIN 01/10/17 14:15 01/20/17 23:19 Temazepam (Restoril) 15 mg HS PRN PO SLEEP 01/11/17 11:45 01/21/17 00:30 Insulin Aspart (NovoLOG SUPPLEMENTAL SCALE) 1 ACHS SLIDING SCALE SQ 01/11/17 16:00 01/21/17 21:48 Furosemide (Lasix Inj) 20 mg Q12HR IV PUSH 01/12/17 21:00 01/22/17 09:03 Objective Remarks GENERAL: Middle aged male, upright in bed in nad. SKIN: Warm and dry. HEAD: Normocephalic. EYES: No injection or drainage. NECK: Supple, trachea midline. CARDIOVASCULAR: +S1/S2 RESPIRATORY: diminished at right base, anterior ray with occasional rhonchi GASTROINTESTINAL: Abdomen soft, non-tender, nondistended. EXTREMITIES: No cyanosis NEUROLOGICAL: awake and alert. normal speech. Assessment/Plan Problem List: (1) Esophageal adenocarcinoma ICD Codes: C15.9 - Malignant neoplasm of esophagus, unspecified Status: Acute Plan: --EUS with esophageal stent placement on 12/25 --++hemoptysis --we plan to give weekly Erbitux and XRT outpatient. --patient had OP EGD with biopsy, pathology showed adenocarcinoma. --EGD/Colonoscopy, 11/20/16--showed long stricture in the mid esophagus and distal esophagus, multiple biopsies were performed Pathology revealed invasive adenocarcinoma- distal esophagus --XRT simulation done 12/19. (2) SCC (squamous cell carcinoma) ICD Codes: C44.92 - Squamous cell carcinoma of skin, unspecified Status: Acute Plan: --has a head and neck, lung malignancy which was locally advanced. --received definitive treatment with surgery. Post surgery he had positive margins and some poor risk features and he was about to get concurrent chemotherapy and radiation and adjuvantly to achieve local control of the disease --PET scan to stage his disease prior to treatment showed an esophageal mass (3) Normocytic anemia ICD Codes: D64.9 - Anemia, unspecified Status: Acute Plan: --hgb stable --transfuse packed red blood cells if his hemoglobin drops below 8.5 --s/p iron infusion (4) Afib ICD Codes: I48.91 - Unspecified atrial fibrillation Status: Acute Plan: --cardiology following. --s/p chest tube placement --on Plavix --on ASA --Amiodarone (5) NSTEMI (non-ST elevated myocardial infarction) ICD Codes: I21.4 - Non-ST elevation (NSTEMI) myocardial infarction Status: Chronic Plan: --had elevated troponin and ST-segment changes consistent with acute [place]. 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 Also with a new diagnosis of early stage gastric cancer Plan 1. monitor CBC 2. monitor CT output 3. plan for treatment outpatient. Attending Statement The exam, history, and the medical decision-making described in the above note were completed with the assistance of the mid-level provider. I reviewed and agree with the findings presented. I attest that I had a [id number] encounter with the patient on the same day, and personally performed and documented my assessment and findings in the medical record. significant CT output supportive care Problem Qualifiers (1) Afib: Perla Duran Jan 22, 2017 10:35 Brant Bell MD Jan 22, 2017 23:07
--- NOTE | 2017-01-22 11:28 | HHI.PR ---
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 Then during this hospitalization the patient developed respiratory failure. He was on the ventilator. Also had pericardial effusion had pericardiocentesis done and has right pleural effusion and had a chest tube placed. He also developed atrial fibrillation with rapid ventricular rate. Currently he is weaned down to nasal cannula. Chest tube is draining. Has mild chest pain. 01/20: as per geospatial specialist the plan is to continue Erbitux and Radiation therapy as outpatient, has invasive Adenocarcinoma of distal esophagus, has squamous cell carcinoma of skin, had surgery for Lung malignancy that was locally advanced status post surgery with positive margins, for chemo and radiation therapy, his PET scan performed for staging showed the esophageal mass, has anemia post blood transfusion, has Atrial Fibrillation not yet cleared by geospatial specialist for discharge. Seen in his bedroom complaint about his chest tube not draining. 01/21: Seen in his bedroom and discussed with nurse Miss Goodwin continue chest tube Right Pl effusion, s/p Chest tube placement, as per strategic marketing specialist to remove chest tube when pleural fluid drainage decreases. 01/22: Stable in his bedroom seen in the presence of geospatial specialist's CHURN TENDER , no changes to anterior assessment. Objective Vital Signs Date Time Temp Pulse Resp B/P (MAP) Pulse Ox O2 Delivery O2 Flow Rate FiO2 01/22/17 09:49 93 21 01/22/17 08:04 97.1 84 16 102/51 (68) 99 01/22/17 06:33 Room Air 01/22/17 05:20 97.8 88 18 125/57 (79) 99 01/22/17 00:00 97.5 90 18 106/53 (70) 99 01/22/17 00:00 Room Air 01/21/17 20:00 Room Air 01/21/17 20:00 97 01/21/17 20:00 98.5 99 20 120/60 (80) 97 01/21/17 17:34 96 Nasal Cannula 2.00 01/21/17 16:00 99.2 97 18 107/52 (70) 96 01/21/17 12:00 98.3 96 18 111/54 (73) 98 I/O 01/21/17 01/21/17 01/21/17 01/22/17 01/22/17 01/22/17 07:00 15:00 23:00 07:00 15:00 23:00 Intake Total 360 ml 1680 ml 240 ml Output Total 790 ml 1300 ml 750 ml 1100 ml Balance -430 ml 380 ml -510 ml -1100 ml Intake Oral 360 ml 1680 ml 240 ml Output Urine Total 500 ml 1300 ml 750 ml Chest Tube Drainage Total 290 ml 1100 ml # Bowel Movements 1 0 Result Diagram: 01/19/17 1616 01/18/17 0630 Imaging Last Impressions Chest X-Ray 01/17/17 0000 Signed Impressions: Service Date/Time: Tuesday, January 17, 2017 18:42 - CONCLUSION: 1. Interval improvement in bilateral pulmonary infiltrates. 2. More consolidative opacity is present at the left lung base without significant change. 3. Small left effusion without significant change. Bebeto Serrano MD Lower Extremity Ultrasound 01/09/17 0000 Signed Impressions: Service Date/Time: Monday, January 09, 2017 13:01 - CONCLUSION: No DVT is identified within the left lower extremity. Washington Marroquin MD Abdomen X-Ray 01/07/17 0000 Signed Impressions: Service Date/Time: Saturday, January 07, 2017 11:56 - CONCLUSION: Visualized portions of the lower chest demonstrate a presumed esophageal stent. Erik Simon MD Head CT 01/04/17 0000 Signed Impressions: Service Date/Time: Thursday, January 05, 2017 03:41 - CONCLUSION: 1. No acute intracranial abnormalities. Fluid in the mastoid air cells characteristic of mastoiditis. Kervin Krause MD CT Angiography 12/31/16 0000 Signed Impressions: Service Date/Time: Saturday, December 31, 2016 01:00 - CONCLUSION: 1. Study is negative for pulmonary embolism. 2. Pericardial effusion, diffuse patchy consolidation in both lungs, collapse left lower lobe, bilateral pleural effusions, esophageal stent, similar to yesterday's CT thorax. Kulwant Gupta MD Thoracentesis 12/30/16 0000 Signed Impressions: Service Date/Time: Friday, December 30, 2016 15:34 - CONCLUSION: Uncomplicated CT-guided thoracentesis. Kiran Harding MD Chest CT 12/29/16 0000 Signed Impressions: Service Date/Time: Friday, December 30, 2016 10:56 - CONCLUSION: 1. Moderate bilateral pleural effusions. 2. Areas of consolidation in the upper lobes bilaterally and in the right middle and right lower lobe. There is some combination of consolidation and atelectasis seen in the left lower lobe. Underlying diffuse processes should be considered including edema. 3. Esophageal stent in place. There is increased density within the stent which could be from fluid or soft tissue. 4. Non-specific mildly prominent lymph nodes in the mediastinum. 5. Moderate pericardial effusion. 6. Possible 3rd non-displaced right rib fracture. Washington Chou MD GI Procedure 12/25/16 0000 Signed Impressions: Service Date/Time: December 19:33 - CONCLUSION: Spot film as above. Everett Pollock MD FACR Barium Swallow X-Ray 12/20/16 0000 Signed Impressions: Service Date/Time: Tuesday, December 20, 2016 13:15 - CONCLUSION: 1. The distal half of the esophagus demonstrates irregular luminal narrowing consistent with the patient's history of esophageal adenocarcinoma. 2. Mild dilatation of the esophagus immediately proximal to the esophageal mass. However, there are no signs of obstruction. 3. Small hiatal hernia. Washington Marroquin MD Abdomen MRI 12/17/16 0000 Signed Impressions: Service Date/Time: Saturday, December 17, 2016 13:59 - CONCLUSION: 1. No acute finding is identified to explain the abdominal pain. 2. Stable thickening of the distal esophagus. There is a single mildly enlarged left gastric lymph node measuring 12 x 10 mm. 3. Moderate sized bilateral pleural effusions, left larger than right, with associated compressive atelectasis. Washington Marroquin MD Brain MRI 12/01/16 0000 Signed Impressions: Service Date/Time: Thursday, December 01, 2016 12:07 - CONCLUSION: Normal examination. Barrett Rodriguez MD Abdomen/Pelvis CT 11/29/16 [id number] Signed Impressions: Service Date/Time: Wednesday, November 30, 2016 01:35 - CONCLUSION: 1. Markedly abnormal appearance of the distal esophagus consistent with the history of esophageal carcinoma. 2. Atherosclerotic calcifications of the aorta and iliac vessels. 3. Cirrhotic appearance to the liver with a mildly nodular contour present. Erik Simon MD Procedures Right axillary art line 12/02/16 Left subclavian central venous line 12/02/16 (Dr. Delarosa) intubation 12/02/16 and 01/01/17 PCI with bare metal stent to LCx by Dr. Krause on 11/30/16 port removal 12/02/16 Dr. Rich. EUS with esophageal stent placement, food bolus removal 12/25/16 Dr. Tejeda Right thoracentesis 12/30/16 (Dr. Harding) Pericardiocentesis and pericardial drain 01/01/17 (Dr. Bueno) Placement of Left #10 Greenlandic pigtail catheter 01/03. Was dislodged 01/09. Placement of right #10 Green[place]ic pigtail catheter 01/06 Other Results Laboratory Tests Test 11/30/16 01:15 11/30/16 15:45 11/30/16 18:20 12/01/16 05:20 Urine Hyaline Casts 3 /lpf Red Cell Morphology Comment NORMAL Iron Level 11 MCG/DL Total Iron Binding Capacity 269 MCG/DL Percent Iron Saturation 4.1 % Transferrin 192 MG/DL Vitamin B12 Level 345 PG/ML Red Blood Cell Folate 363 Differential Total Cells Counted 100 Neutrophils % (Manual) 77 % Band Neutrophils % 17 % Lymphocytes % 2 % Monocytes % 4 % Neutrophils # (Manual) 11.2 TH/MM3 Thyroid Stimulating Hormone 3rd Gen 0.555 uIU/ML Test 12/01/16 17:00 12/01/16 17:05 12/02/16 06:35 12/02/16 21:23 Urine Color LIGHT-BROWN Urine Turbidity CLOUDY Urine pH 6.0 Urine Specific [place] 1.023 Urine Protein 100 mg/dL Urine Glucose (UA) TRACE mg/dL Urine Ketones NEG mg/dL Urine Occult Blood LARGE Urine Nitrite NEG Urine Bilirubin NEG Urine Urobilinogen 2.0 MG/DL Urine Leukocyte Esterase TRACE Urine RBC 13 /hpf Urine WBC 12 /hpf Urine Squamous Epithelial Cells 7 /hpf Urine Transitional Epithelial Cells 2 /hpf Urine Amorphous Sediment RARE Urine Bacteria FEW /hpf Urine Mucus MANY /lpf Microscopic Urinalysis Comment CATH-CULTURE IND Ferritin 124 NG/ML Ammonia LESS THAN 10 MCMOL/L [id number] 298 mg/dL Ceruloplasmin 40 mg/dL Tumor Marker Alpha Fetoprotein 1.7 NG/ML Anti-Nuclear Antibody Screen NEG Mitochondria M2 Antibody LESS THAN 20.0 U Anti-Smooth Muscle Antibody Negative Hepatitis A IgM Antibody NEGATIVE Hepatitis B Surface Antigen NEGATIVE Hepatitis B Core IgM Antibody NEGATIVE Hepatitis C Antibody REACTIVE Lactic Acid Level 1.7 mmol/L Vancomycin Level Trough 15.3 MCG/ML Test 12/03/16 08:07 12/03/16 12:53 12/04/16 04:22 12/11/16 03:29 Venous Blood pH 7.43 Venous Blood Partial Pressure CO2 40 mmHg Venous Blood Partial Pressure O2 41 mmHg Venous Blood HCO3 26 mmol/L Venous Blood Oxygen Saturation 68 % Venous Blood Oxygen Content 8.3 Vol % Venous Blood Base Excess 2.1 mmol/L Hepatitis C RNA Genotype NOT DETECTED Hepatitis C RNA (PCR) IUs/ml LESS THAN 15 IU/mL Hepatitis C RNA (PCR) log IUs/ml LESS THAN 1.18 Haptoglobin 516 MG/DL Fibrinogen 436 mg/dL Blood Urea Nitrogen 52 MG/DL Creatinine 1.09 MG/DL Random Glucose 238 MG/DL Total Protein 5.9 GM/DL Albumin 2.0 GM/DL Calcium Level 7.3 MG/DL Magnesium Level 2.2 MG/DL Alkaline Phosphatase 74 U/L Aspartate Amino Transf (AST/SGOT) 91 U/L Alanine Aminotransferase (ALT/SGPT) 43 U/L Lactate Dehydrogenase 534 U/L Total Bilirubin 1.2 MG/DL Sodium Level 142 MEQ/L Potassium Level 3.2 MEQ/L Chloride Level 104 MEQ/L Carbon Dioxide Level 29.2 MEQ/L Triglycerides Level 123 MG/DL Cholesterol Level 100 MG/DL LDL Cholesterol 51 MG/DL HDL Cholesterol 24.3 MG/DL Cholesterol/HDL Ratio 4.11 RATIO Test 12/15/16 02:10 12/16/16 09:00 12/19/16 04:10 12/20/16 05:00 Direct Bilirubin 0.4 MG/DL Indirect Bilirubin 0.4 MG/DL Troponin I 0.09 NG/ML Helmet Cells OCC B-Type Natriuretic Peptide 498 PG/ML Test 12/23/16 06:45 12/25/16 21:42 12/30/16 15:00 12/31/16 04:10 Digoxin Level 0.8 NG/ML Nasal Screen MRSA (PCR) MRSA NOT DETECTED Prothrombin Time 13.0 SEC Prothromb Time International Ratio 1.2 RATIO Activated Partial Thromboplast Time 28.6 SEC Oxygen Delivery Device NRB Blood Gas Liter Flow 15 L/M Test 01/01/17 11:30 01/03/17 04:14 01/04/17 06:44 01/05/17 03:26 Pericardial Fluid pH 8.5 Pericardial Fluid WBC 5170 /MM3 Pericardial Fluid RBC 326266 /MM3 Pericardial Fluid Neutrophils 99 % Pericardial Fluid Lymphocytes 1 % Pericardial Fluid Total Protein 3.4 GM/DL Pericardial Fluid LDH 2922 U/L Pericardial Fluid Glucose 101 MG/DL Random Vancomycin Level 4.1 COMMENT Lipase 60 U/L Total Creatine Kinase 41 U/L Test 01/06/17 04:04 01/06/17 12:30 01/06/17 15:40 01/11/17 06:30 Protein Corrected Calcium 8.4 MG/DL Body Fluid Amylase Source PLEURAL FLUID Body Fluid Amylase 7 U/L Pleural Fluid pH 8.5 Pleural Fluid WBC 110 /MM3 Pleural Fluid RBC 1056 /MM3 Pleural Fluid Neutrophils 53 % Pleural Fluid Lymphocytes 40 % Pleural Fluid Monocytes 2 % Pleural Fluid Histiocytes 2 % Pleural Fluid Mesothelial Cells 3 % Pleural Fluid Total Protein 1.4 GM/DL Pleural Fluid LDH 88 U/L Pleural Fluid Glucose 277 MG/DL Blood Gas Puncture Site RT RADIAL Blood Gas Patient Temperature 98.6 Blood Gas HCO3 29 mmol/L Blood Gas Base Excess 4.2 mmol/L Blood Gas Oxygen Saturation 92 % Arterial Blood pH 7.38 Arterial Blood Partial Pressure CO2 50 mmHg Arterial Blood Partial Pressure O2 75 mmHg Arterial Blood Oxygen Content 11.9 Vol % Arterial Blood Carboxyhemoglobin 1.9 % Arterial Blood Methemoglobin 0.7 % Blood Gas Hemoglobin 9.1 G/DL Blood Gas Ventilator Setting CPAP 5/5 Blood Gas Inspired Oxygen 35 % Blood Urea Nitrogen 16 MG/DL Creatinine 0.46 MG/DL Random Glucose 141 MG/DL Total Protein 5.5 GM/DL Albumin 1.6 GM/DL Calcium Level 7.8 MG/DL Phosphorus Level 3.0 MG/DL Magnesium Level 1.8 MG/DL Alkaline Phosphatase 86 U/L Aspartate Amino Transf (AST/SGOT) 19 U/L Alanine Aminotransferase (ALT/SGPT) 13 U/L Total Bilirubin 0.4 MG/DL Sodium Level 137 MEQ/L Potassium Level 4.1 MEQ/L Chloride Level 99 MEQ/L Carbon Dioxide Level 31.7 MEQ/L Test 01/16/17 06:00 01/17/17 18:45 01/18/17 06:30 01/19/17 16:16 Blood Urea Nitrogen 15 MG/DL 17 MG/DL Creatinine 0.47 MG/DL 0.44 MG/DL Random Glucose 119 MG/DL 65 MG/DL Total Protein 5.6 GM/DL Albumin 1.8 GM/DL Calcium Level 7.6 MG/DL 7.9 MG/DL Alkaline Phosphatase 124 U/L Aspartate Amino Transf (AST/SGOT) 20 U/L Alanine Aminotransferase (ALT/SGPT) 11 U/L Total Bilirubin 0.4 MG/DL Sodium Level 134 MEQ/L 135 MEQ/L Potassium Level 4.1 MEQ/L 4.3 MEQ/L Chloride Level 97 MEQ/L 96 MEQ/L Carbon Dioxide Level 31.2 MEQ/L 34.2 MEQ/L Platelet Estimate NORMAL Platelet Morphology Comment NORMAL Ovalocytes 1+ Anion Gap 5 MEQ/L Estimat Glomerular Filtration Rate 197 ML/MIN White Blood Count 6.5 TH/MM3 Red Blood Count 3.21 MIL/MM3 Hemoglobin 9.3 GM/DL Hematocrit 28.6 % Mean Corpuscular Volume 89.3 FL Mean Corpuscular Hemoglobin 29.2 PG Mean Corpuscular Hemoglobin Concent 32.7 % Red Cell Distribution Width 19.6 % Platelet Count 270 TH/MM3 Mean Platelet Volume 8.3 FL Neutrophils (%) (Auto) 64.5 % Lymphocytes (%) (Auto) 25.5 % Monocytes (%) (Auto) 7.6 % Eosinophils (%) (Auto) 1.6 % Basophils (%) (Auto) 0.8 % Neutrophils # (Auto) 4.2 TH/MM3 Lymphocytes # (Auto) 1.7 TH/MM3 Monocytes # (Auto) 0.5 TH/MM3 Eosinophils # (Auto) 0.1 TH/MM3 Basophils # (Auto) 0.1 TH/MM3 CBC Comment DIFF FINAL Differential Comment Objective Remarks GENERAL: laying in bed, appears comfortable CARDIOVASCULAR: rrr w 2/6 murmur. RESPIRATORY: Clear to auscultation. Breath sounds equal bilaterally. No wheezes. right chest tube to suction GASTROINTESTINAL: Abdomen soft, non-tender, nondistended. MUSCULOSKELETAL: laying in bed, able to move his upper extremities. large decub ulcer present NEURO: awake, alert , answers questions PSYCH: calm, pleasant. not agitated Medications and IVs Current Medications Medications (Trade) Dose Ordered Sig/Geovanny Route Start Time Stop Time Status Last Admin (NS Flush) 2 ml UNSCH PRN IV FLUSH 11/30/16 02:45 12/24/16 09:59 (NS Flush) 2 ml BID IV FLUSH 11/30/16 09:00 01/21/17 21:52 (Rere-Colace) 1 tab BID PO 11/30/16 09:00 01/22/17 09:00 (Milk Of Magnesia Liq) 30 ml Q12H PRN PO 11/30/16 02:45 (Senokot) 17.2 mg Q12H PRN PO 11/30/16 02:45 (Dulcolax Supp) 10 mg DAILY PRN RECTAL 11/30/16 02:45 (Lactulose Liq) 30 ml DAILY PRN PO 11/30/16 02:45 Miscellaneous Information Patient in critical care unit? Ass... Q361D .XX 11/30/16 05:15 (Tylenol) 325 mg Q4H PRN PO 11/30/16 13:45 12/13/16 17:13 (Atropine Inj) 0.5 mg UNSCH PRN IV 11/30/16 13:45 (Zofran Inj) 4 mg Q4H PRN IV 11/30/16 13:45 12/24/16 22:41 (NS Flush) 5 ml Q21D IV FLUSH 11/30/16 18:00 12/21/16 17:19 (Heparin Central Flush) 500 units Q21D IV FLUSH 11/30/16 18:00 11/30/16 18:04 (NS Flush) 5 ml UNSCH PRN IV FLUSH 11/30/16 18:00 (Heparin Central Flush) 250 units UNSCH PRN IV FLUSH 11/30/16 18:00 01/16/17 06:25 (Romazicon Inj) 0.2 mg Q1M PRN IV PUSH 12/01/16 13:00 (Tylenol 650 Mg/ 20 ml Liq) 650 mg Q6H PRN PO 12/01/16 17:30 12/02/16 01:07 (Miralax) 17 gm DAILY PO 12/04/16 09:00 01/21/17 08:51 (Theragran) 1 tab DAILY PO 12/05/16 09:00 01/22/17 09:01 (Ativan Inj) 1 mg Q4H PRN IV PUSH 12/09/16 15:15 12/31/16 14:16 (Haldol Inj) 2 mg Q8H PRN IM 12/10/16 17:00 (Lipitor) 40 mg HS PO 12/12/16 21:00 Future hold 01/21/17 21:48 (NS Flush) See Protocol DAILY IV FLUSH 12/13/16 09:00 01/21/17 08:53 (NS Flush) See Protocol UNSCH PRN IV FLUSH 12/12/16 17:00 (Heparin Central Flush) See Protocol DAILY IV FLUSH 12/13/16 09:00 01/22/17 09:01 (Heparin Central Flush) See Protocol UNSCH PRN IV FLUSH 12/12/16 17:00 (NS Flush) UNSCH PRN IV FLUSH 12/12/16 17:00 12/19/16 01:59 (Nitrostat Sl) 0.4 mg Q5M PRN SL 12/16/16 00:15 (Ativan) 0.5 mg DAILY PRN PO 12/18/16 15:45 Future Hold 12/19/16 08:29 (Cardizem) 90 mg Q6H PO 12/18/16 23:00 Future Hold 12/25/16 12:14 (Lanoxin) 0.25 mg DAILY PO 12/22/16 09:00 Future Hold 12/25/16 08:06 (Carafate Liq) 1 gm ACHS PO 12/22/16 11:00 01/22/17 06:17 (Lopressor Inj) 5 mg Q1HR PRN IV PUSH 12/22/16 09:45 12/30/16 10:37 (Protonix Inj) 40 mg Q12H IV PUSH 12/22/16 10:00 01/22/17 09:01 (Lopressor) 25 mg Q6HR PO 12/22/16 13:00 01/22/17 06:18 (Duoneb Neb) 1 ampule Q2HR NEB PRN INH 12/25/16 21:00 01/15/17 15:37 (Plavix) 75 mg DAILY PO 12/29/16 09:00 01/22/17 09:00 (Ecotrin Ec) 162 mg DAILY PO 12/29/16 09:00 Future hold 01/22/17 09:01 (Deltasone) 5 mg DAILY PO 12/29/16 09:00 Future hold 01/22/17 09:01 (Peridex 0.12% Liq) 15 ml BID@08,20 MT 01/01/17 20:00 01/21/17 21:52 (Tears Naturale Opth Soln) 1 drop Q8HR EACH EYE 01/04/17 14:00 01/22/17 06:20 (Levemir Inj) 30 units Q12HR SQ 01/06/17 21:00 01/21/17 21:46 (Cordarone) 200 mg Q12HR PO 01/07/17 10:00 01/22/17 09:01 (Synthroid) 50 mcg DAILY@0600 PO 01/11/17 06:00 01/22/17 06:17 (Percocet 10-325 Mg) 1 tab Q4H PRN PO 01/10/17 14:15 01/22/17 06:18 (Roxicodone) 5 mg Q4H PRN PO 01/10/17 14:15 01/22/17 10:42 (Restoril) 15 mg HS PRN PO 01/11/17 11:45 01/21/17 00:30 (D50w (Vial) Inj) 50 ml UNSCH PRN IV 01/11/17 12:15 (Glucagon Inj) 1 mg UNSCH PRN OTHER 01/11/17 12:15 (NovoLOG SUPPLEMENTAL SCALE) 1 ACHS SLIDING SCALE SQ 01/11/17 16:00 01/21/17 21:48 (Lasix Inj) 20 mg Q12HR IV PUSH 01/12/17 21:00 01/22/17 09:03 A/P Assessment and Plan 1. Acute metabolic Encephalopathy Most likely secondary to Hypoxia, sepsis, Resolved. - Completed therapy with Thiamine for Possible alcohol withdrawal 12/05/16, improved. - Currently off all sedation. On Percocet 10 q4. Oxycodone additional 5 as needed for breakthrough. - Restoril 15 qhs PRN sleep 2. Acute Hypoxemic Respiratory failure- Resolved. History of COPD, Tobacco abuse, Bilateral Pleural Effusions - Emergently intubated and placed on mechanical ventilation 12/02/16, extubated 12/03/16 - Re intubated 01/01/17 PRVC ventilation 16/550///35. Extubated 01/06 - Now on nasal cannula. - CT chest revealed bilateral pleural effusions. Thoracentesis -1200 cc . Placement of Left #10 Green[place]ic pigtail catheter 01/03. Was dislodged 01/09. Placement of right #10 [place] pigtail catheter 01/06. - Right pleural fluid Cytology negative for malignancy 01/06 and Pleural fluid cytology negative 12/30 strategic marketing specialist following to remove Chest tube when Pleural fluid drainage decreases. 3. Pericardial effusion, tamponade status post pericardiocentesis 01/01/17 Atrial fibrillation with RVR currently normal sinus rhythm NSTEMI Dynamic LVOT obstruction Coronary artery disease status post bare metal stent to left circumflex Krause 12/01 - Emergency Pericardiocentesis drains -01/01. Cc. Cultures no growth. Removed drain 01/06, Followup limited Echo 01/07 EF 60-65%. Trivial small pericardial effusion present - Cardiac catheterization 12/01 revealed EF around 60%. Left main normal. RCA normal. LAD 70% ostial. Bare stent left circumflex 70%. - Resume ASA 162 mg daily, d/c rectal ASA/ Continue Plavix 75 mg daily - Continue amiodarone 200 mg by mouth every 12 hours. - Continue Metoprolol 25 mg every 6 hours - 2-D echo no veg, EF 50-55%. Mild MR, mild AR. Pseudo-outflow obstruction due to concentric hypertrophy and hyperdynamic ventricle - Continue Lasix to 20 g IV twice a day. KCL Effervescent 25 bid x2. - Holding home medications of losartan 100 mg, amlodipine 10 mg daily, normotensive. - Continue atorvastatin 40 by mouth daily for dyslipidemia. - Pericardial fluid cytology 01/01 - negative for malignancy 4. Invasive adenocarcinoma of the esophagus Liver cirrhosis - Tolerating mechanical soft, thin liquids. Speech therapy has signed off. - Patient's intake improving. Discontinue TPN - Has biopsy proven invasive adenocarcinoma of esophagus - Status post EUS/esophageal stent placement 12/25 Dr. Tejeda. - IV Protonix twice a day continue. - Carafate 1 g by mouth daily per her GI - Surgery removed port - Patient declined PEG. Per surgery repeat calorie count. Tolerating supplements. 5. Septic shock-resolved MSSA bacteremia Musduc-s-Fhvh infection status post removal Pseudomonas pneumonia - Previously Rapid clinical improvement after Laqkul-h-Kitm was removed. remains off all pressors - Catheter tip culture blood culture and wound culture also positive for MSSA - Completed Rifampin, for synergy per ID (on po now), Completed Ancef, Levaquin. - Infectious disease Dr. Nassar. 2D Echo neg for endocarditis, Unable to do PAM due to esophageal' Cancer, now off antibiotics. 6. 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 Bell is following - Status post surgical resection for L parotid SCC at [facility] 10/01 - Hematology plans to give weekly Erbitux and XRT outpatient. - Transfuse as needed for hemoglobin less than 8 7. DM II continue long lasting insulin and sliding scale, 8. Hypothyroidism continue Hormonal replacement, is on Prednisone 5 mg daily 9. Sacral decubitus ulcer - Wound care following. Open to air DVT prop - No pharmacological prophylaxis secondary to hemoptysis. Will discuss with GI when we can resume prophylaxis. Patient has LE skin breakdown. Hold SCDs skin breakdown BLE. GI Prop - Pantoprazole 40 iv twice a day Full Code Palliative care is following. No changes to anterior assessment. Discharge Planning Patient still with chest tube, awaiting final by strategic marketing specialist. Rick Alfaro MD Jan 22, 2017 11:28
--- NOTE | 2017-01-22 16:51 | HHI.PR ---
Subjective Remarks 61 YOWM with COPD,DM,AF Had Pericardial effusion and Pericardiocentesis Mild SOB No Fever Up in chair. Chest tube fell off Objective Vital Signs Vital Signs Date Time Temp Pulse Resp B/P (MAP) Pulse Ox O2 Delivery O2 Flow Rate FiO2 01/22/17 12:04 97.9 88 16 108/53 (71) 99 01/22/17 09:49 93 21 01/22/17 09:00 97 Room Air 01/22/17 08:04 97.1 84 16 102/51 (68) 99 01/22/17 06:33 Room Air 01/22/17 05:20 97.8 88 18 125/57 (79) 99 01/22/17 00:00 97.5 90 18 106/53 (70) 99 01/22/17 00:00 Room Air 01/21/17 20:00 Room Air 01/21/17 20:00 97 01/21/17 20:00 98.5 99 20 120/60 (80) 97 01/21/17 17:34 96 Nasal Cannula 2.00 I/O 01/21/17 01/21/17 01/21/17 01/22/17 01/22/17 01/22/17 07:00 15:00 23:00 07:00 15:00 23:00 Intake Total 360 ml 1680 ml 240 ml Output Total 790 ml 1300 ml 750 ml 1100 ml Balance -430 ml 380 ml -510 ml -1100 ml Intake Oral 360 ml 1680 ml 240 ml Output Urine Total 500 ml 1300 ml 750 ml Chest Tube Drainage Total 290 ml 1100 ml # Bowel Movements 1 0 Result Diagram: 01/19/17 1616 01/18/17 0630 Objective Remarks GENERAL: WBWN WM,NAD SKIN: Warm and dry. HEAD: Normocephalic. EYES: No scleral icterus. No injection or drainage. NECK: Supple, trachea midline. No JVD or lymphadenopathy. CARDIOVASCULAR: Regular rate and rhythm without murmurs, gallops, or rubs. RESPIRATORY: Breath sounds equal bilaterally. No accessory muscle use. GASTROINTESTINAL: Abdomen soft, non-tender, nondistended. MUSCULOSKELETAL: No cyanosis, or edema. BACK: Nontender without obvious deformity. No CVA tenderness. A/P Assessment and Plan Right Pl effusion, s/p Chest tube placement S/P Pericardiocentesis AF CAD HTN PLAN: CXR Supplement 02 Aerosol nebs OOB in Chair CHASTITY pt and his Chace Luna MD Jan 22, 2017 16:51
--- NOTE | 2017-01-22 17:50 | RADRPT ---
EXAM DATE/TIME: 01/22/2017 16:49 [facility] COMPARISON: CHEST SINGLE AP, January 17, 2017, 18:42. INDICATIONS : Evaluate for pneumothorax. Patient chest tube fell off. MEDICAL HISTORY : Hypertension. Hypercholesterolemia. CAD. Hepatitis C. SURGICAL HISTORY : Appendectomy. ENCOUNTER: Subsequent ACUITY: 1 day PAIN SCORE: 2/10 LOCATION: Bilateral chest FINDINGS: There is interstitial process in the right lung diffusely with possible focal consolidation left lung base. There is no appreciable pleural effusion for technique. Heart and mediastinum are unremarkab le. CONCLUSION: Right lung interstitial process and possible left lung base consolidation. Mali Law MD on January 22, 2017 at 17:45 Board Certified Radiologist. This report was verified electronically.
[2017-01-22] MEDS: ATORVASTATIN 40 MG TAB PO SCH (20:35)
[2017-01-23] VITALS (8 sets, daily range): BP systolic 92–115; BP diastolic 48–57; PULSE 82–89; RESP 17–21; TEMP 98–98.6; O2SAT 92–100
[2017-01-23] MEDS: METOPROLOL TARTRATE 25 MG TAB PO SCH ×4 (00:19→17:00)
[2017-01-23] MEDS: TEMAZEPAM 15 MG CAP PO PRN (00:19)
[2017-01-23] MEDS: SUCRALFATE 1 GM/10 ML CUP PO SCH ×4 (05:52→20:47)
[2017-01-23] MEDS: LEVOTHYROXINE SODIUM 50 MCG TAB PO SCH (05:52)
[2017-01-23] MEDS: INSULIN ASPART SUPPLEMENTAL SCALE SQ SCH ×4 (05:53→21:00)
[2017-01-23] MEDS: oxyCODONE/ACETAMINOPHEN 10 MG/325 MG TAB PO PRN ×3 (05:53→13:53)
[2017-01-23] MEDS: ARTIFICIAL TEARS OPTH SOLN 15 ML BTL EACH EYE SCH ×3 (05:53→20:57)
[2017-01-23 07:11] LABS: AUTOMATED NEUTROPHIL # 5.9 TH/MM3 (1.8-7.7); BASOPHIL % 0.4 % (0.0-2.0); EOSINOPHIL # 0.1 TH/MM3 (0-0.4); EOSINOPHIL % 1.4 % (0.0-4.0); HEMATOCRIT 26.5 % (39.0-51.0); HEMO FLAGS DIFF FINAL; LYMPH % 20.3 % (9.0-44.0); LYMPHOCYTE # 1.7 TH/MM3 (1.0-4.8); MEAN CELL VOLUME 89.1 FL (80.0-100.0); MEAN CORPUSCULAR HEMOGLOBIN 30.4 PG (27.0-34.0); MEAN CORPUSCULAR HGB CONC 34.1 % (32.0-36.0); NEUT % 69.9 % (16.0-70.0); PLATELET COUNT 246 TH/MM3 (150-450); RED BLOOD COUNT 2.97 MIL/MM3 (4.50-5.90); RED CELL DISTRIBUTION WIDTH 19.4 % (11.6-17.2); WHITE BLOOD COUNT 8.5 TH/MM3 (4.0-11.0)
[2017-01-23 07:12] LABS: BICARBONATE 30.3 MEQ/L (21.0-32.0); POTASSIUM 4.4 MEQ/L (3.5-5.1)
[2017-01-23] MEDS: CHLORHEXIDINE 0.12% (ORAL KIT) 15 ML CUP MT SCH ×2 (08:00→20:00)
[2017-01-23] MEDS: FUROSEMIDE 20 MG/2 ML VIAL IV PUSH SCH ×2 (08:07→20:46)
[2017-01-23] MEDS: predniSONE 5 MG TAB PO SCH (08:08)
[2017-01-23] MEDS: ASPIRIN EC 81 MG TABEC PO SCH (08:08)
[2017-01-23] MEDS: CLOPIDOGREL 75 MG TAB PO SCH (08:08)
[2017-01-23] MEDS: MULTIVITAMIN TAB PO SCH (08:08)
[2017-01-23] MEDS: DOCUSATE SODIUM 50 MG/SENNA 8.6 MG TAB PO SCH ×2 (08:08→20:47)
[2017-01-23] MEDS: POLYETHYLENE GLYCOL 17 GM PKG PO SCH (08:09)
[2017-01-23] MEDS: SODIUM CHLORIDE 0.9% FLUSH 10 ML FLUSH IV FLUSH SCH ×3 (08:09→20:47)
[2017-01-23] MEDS: AMIODARONE 200 MG TAB PO SCH ×2 (08:09→20:46)
[2017-01-23] MEDS: INSULIN DETEMIR 100 UNITS/ML VIAL SQ SCH ×2 (08:10→21:02)
[2017-01-23] MEDS: PANTOPRAZOLE SODIUM 40 MG VIAL IV PUSH SCH ×2 (10:00→20:46)
--- NOTE | 2017-01-23 10:40 | HHI.PR ---
Subjective Remarks 61 YOWM with COPD,DM,AF Had Pericardial effusion and Pericardiocentesis Mild SOB No Fever Up in chair. CXR stable Objective Vital Signs Vital Signs Date Time Temp Pulse Resp B/P (MAP) Pulse Ox O2 Delivery O2 Flow Rate FiO2 01/23/17 09:33 98.1 89 18 107/48 (67) 99 01/23/17 06:17 Room Air 01/23/17 04:00 98.0 87 18 98/48 (65) 97 01/23/17 03:26 Nasal Cannula 2.00 01/23/17 02:22 Nasal Cannula 2.00 01/23/17 00:00 98.5 89 21 115/56 (75) 95 01/22/17 23:02 Room Air 01/22/17 20:00 90 01/22/17 20:00 98.2 87 19 92/44 (60) 97 01/22/17 20:00 Room Air 01/22/17 16:05 98.3 85 16 107/54 (71) 99 01/22/17 12:04 97.9 88 16 108/53 (71) 99 I/O 01/22/17 01/22/17 01/22/17 01/23/17 01/23/17 01/23/17 06:59 14:59 22:59 06:59 14:59 22:59 Intake Total 240 ml 320 ml 400 ml Output Total 750 ml 1100 ml 600 ml 850 ml Balance -510 ml -1100 ml -280 ml -450 ml Intake Oral 240 ml 320 ml 400 ml Output Urine Total 750 ml 600 ml 850 ml Chest Tube Drainage Total 1100 ml # Bowel Movements 0 1 2 Result Diagram: 01/23/1735 01/23/1735 Objective Remarks GENERAL: WBWN WM,NAD SKIN: Warm and dry. HEAD: Normocephalic. EYES: No scleral icterus. No injection or drainage. NECK: Supple, trachea midline. No JVD or lymphadenopathy. CARDIOVASCULAR: Regular rate and rhythm without murmurs, gallops, or rubs. RESPIRATORY: Breath sounds equal bilaterally. No accessory muscle use. GASTROINTESTINAL: Abdomen soft, non-tender, nondistended. MUSCULOSKELETAL: No cyanosis, or edema. BACK: Nontender without obvious deformity. No CVA tenderness. A/P Assessment and Plan Right Pl effusion, s/p Chest tube placement S/P Pericardiocentesis AF CAD HTN PLAN: Supplement 02 Aerosol nebs OOB in Chair DW pt and his Stable from Pulm standpoint Will not round but pulm coverage available until thursday Chace Luna MD Jan 23, 2017 10:40
--- NOTE | 2017-01-23 10:42 | PD.ONC.PN ---
Subjective Subjective Remarks Afebrile overnight. Patient resting in bed. His chest tube came out today he states. He denies shortness of breath. Objective Data Date Time Temp Pulse Resp B/P (MAP) Pulse Ox O2 Delivery O2 Flow Rate FiO2 01/23/17 09:33 98.1 89 18 107/48 (67) 99 01/23/17 06:17 Room Air 01/23/17 04:00 98.0 87 18 98/48 (65) 97 01/23/17 03:26 Nasal Cannula 2.00 01/23/17 02:22 Nasal Cannula 2.00 01/23/17 00:00 98.5 89 21 115/56 (75) 95 01/22/17 23:02 Room Air 01/22/17 20:00 90 01/22/17 20:00 98.2 87 19 92/44 (60) 97 01/22/17 20:00 Room Air 01/22/17 16:05 98.3 85 16 107/54 (71) 99 01/22/17 12:04 97.9 88 16 108/53 (71) 99 01/23/17 01/23/17 01/23/17 06:59 14:59 22:59 Intake Total 400 ml Output Total 850 ml Balance -450 ml Result Diagram: 01/23/1735 01/23/1735 Laboratory Results Laboratory Tests Test 01/23/17 06:35 White Blood Count 8.5 TH/MM3 Red Blood Count 2.97 MIL/MM3 Hemoglobin 9.0 GM/DL Hematocrit 26.5 % Mean Corpuscular Volume 89.1 FL Mean Corpuscular Hemoglobin 30.4 PG Mean Corpuscular Hemoglobin Concent 34.1 % Red Cell Distribution Width 19.4 % Platelet Count 246 TH/MM3 Mean Platelet Volume 7.8 FL Neutrophils (%) (Auto) 69.9 % Lymphocytes (%) (Auto) 20.3 % Monocytes (%) (Auto) 8.0 % Eosinophils (%) (Auto) 1.4 % Basophils (%) (Auto) 0.4 % Neutrophils # (Auto) 5.9 TH/MM3 Lymphocytes # (Auto) 1.7 TH/MM3 Monocytes # (Auto) 0.7 TH/MM3 Eosinophils # (Auto) 0.1 TH/MM3 Basophils # (Auto) 0.0 TH/MM3 CBC Comment DIFF FINAL Differential Comment Blood Urea Nitrogen 20 MG/DL Creatinine 0.56 MG/DL Random Glucose 115 MG/DL Calcium Level 8.2 MG/DL Sodium Level 131 MEQ/L Potassium Level 4.4 MEQ/L Chloride Level 95 MEQ/L Carbon Dioxide Level 30.3 MEQ/L Anion Gap 6 MEQ/L Estimat Glomerular Filtration Rate 149 ML/MIN Administered Medications Medications (Trade) Dose Ordered Sig/Geovanny Route PRN Reason Start Time Stop Time Status Last Admin Dose Admin Sodium Chloride (NS Flush) 2 ml UNSCH PRN IV FLUSH FLUSH AFTER USING IV ACCESS 11/30/16 02:45 12/24/16 09:59 Sodium Chloride (NS Flush) 2 ml BID IV FLUSH 11/30/16 09:00 01/23/17 08:09 Senna/Docusate Sodium (Rere-Colace) 1 tab BID PO 11/30/16 09:00 01/23/17 08:08 Acetaminophen (Tylenol) 325 mg Q4H PRN PO PAIN SCALE 1 TO 2 11/30/16 13:45 12/13/16 17:13 Ondansetron HCl (Zofran Inj) 4 mg Q4H PRN IV NAUSEA 11/30/16 13:45 12/24/16 22:41 Sodium Chloride (NS Flush) 5 ml Q21D IV FLUSH 11/30/16 18:00 12/21/16 17:19 Heparin Sodium (Porcine) (Heparin Central Flush) 500 units Q21D IV FLUSH 11/30/16 18:00 11/30/16 18:04 Heparin Sodium (Porcine) (Heparin Central Flush) 250 units UNSCH PRN IV FLUSH FLUSH AFTER USING IV ACCESS 11/30/16 18:00 01/16/17 06:25 Acetaminophen (Tylenol 650 Mg/ 20 ml Liq) 650 mg Q6H PRN PO FEVER 12/01/16 17:30 12/02/16 01:07 Polyethylene Glycol (Miralax) 17 gm DAILY PO 12/04/16 09:00 01/21/17 08:51 Multivitamins (Theragran) 1 tab DAILY PO 12/05/16 09:00 01/23/17 08:08 Lorazepam (Ativan Inj) 1 mg Q4H PRN IV PUSH ANXIETY AND/OR AGITATION 12/09/16 15:15 12/31/16 14:16 Atorvastatin Calcium (Lipitor) 40 mg HS PO 12/12/16 21:00 Future hold 01/22/17 20:35 Sodium Chloride (NS Flush) See Protocol DAILY IV FLUSH 12/13/16 09:00 01/23/17 08:10 Heparin Sodium (Porcine) (Heparin Central Flush) See Protocol DAILY IV FLUSH 12/13/16 09:00 01/23/17 08:06 Sodium Chloride (NS Flush) UNSCH PRN IV FLUSH SEE PROTOCOL TABLE 12/12/16 17:00 12/19/16 01:59 Lorazepam (Ativan) 0.5 mg DAILY PRN PO ANXIETY 12/18/16 15:45 Future Hold 12/19/16 08:29 Diltiazem HCl (Cardizem) 90 mg Q6H PO 12/18/16 23:00 Future Hold 12/25/16 12:14 Digoxin (Lanoxin) 0.25 mg DAILY PO 12/22/16 09:00 Future Hold 12/25/16 08:06 Sucralfate (Carafate Liq) 1 gm ACHS PO 12/22/16 11:00 01/23/17 08:07 Metoprolol Tartrate (Lopressor Inj) 5 mg Q1HR PRN IV PUSH RAPID HEART RATE 12/22/16 09:45 12/30/16 10:37 Pantoprazole Sodium (Protonix Inj) 40 mg Q12H IV PUSH 12/22/16 10:00 01/22/17 20:35 Metoprolol Tartrate (Lopressor) 25 mg Q6HR PO 12/22/16 13:00 01/23/17 05:53 Albuterol/ Ipratropium (Duoneb Neb) 1 ampule Q2HR NEB PRN INH WHEEZING 12/25/16 21:00 01/15/17 15:37 Clopidogrel Bisulfate (Plavix) 75 mg DAILY PO 12/29/16 09:00 01/23/17 08:08 Aspirin (Ecotrin Ec) 162 mg DAILY PO 12/29/16 09:00 Future hold 01/23/17 08:08 Prednisone (Deltasone) 5 mg DAILY PO 12/29/16 09:00 Future hold 01/23/17 08:08 Chlorhexidine Gluconate (Peridex 0.12% Liq) 15 ml BID@08,20 MT 01/01/17 20:00 01/21/17 21:52 Artificial Tears (Tears Naturale Opth Soln) 1 drop Q8HR EACH EYE 01/04/17 14:00 01/23/17 05:53 Insulin Detemir (Levemir Inj) 30 units Q12HR SQ 01/06/17 21:00 01/22/17 20:39 Amiodarone HCl (Cordarone) 200 mg Q12HR PO 01/07/17 10:00 01/23/17 08:09 Levothyroxine Sodium (Synthroid) 50 mcg DAILY@0600 PO 01/11/17 06:00 01/23/17 05:52 Oxycodone/ Acetaminophen (Percocet 10-325 Mg) 1 tab Q4H PRN PO PAIN 1-10 01/10/17 14:15 01/23/17 10:39 Oxycodone HCl (Roxicodone) 5 mg Q4H PRN PO BREAKTHROUGH PAIN 01/10/17 14:15 01/22/17 17:31 Temazepam (Restoril) 15 mg HS PRN PO SLEEP 01/11/17 11:45 01/23/17 00:19 Insulin Aspart (NovoLOG SUPPLEMENTAL SCALE) 1 ACHS SLIDING SCALE SQ 01/11/17 16:00 01/22/17 20:40 Furosemide (Lasix Inj) 20 mg Q12HR IV PUSH 01/12/17 21:00 01/23/17 08:07 Objective Remarks GENERAL: Middle aged male, sitting up in chair next to bed in [facility]. SKIN: Warm and dry. HEAD: Normocephalic. EYES: No injection or drainage. NECK: Supple, trachea midline. CARDIOVASCULAR: +S1/S2 RESPIRATORY: right lung ray diminished. anterior ray clear. GASTROINTESTINAL: Abdomen soft, non-tender, nondistended. EXTREMITIES: No cyanosis NEUROLOGICAL: awake and alert. normal speech. moving all extremities. Assessment/Plan Problem List: (1) Esophageal adenocarcinoma ICD Codes: C15.9 - Malignant neoplasm of esophagus, unspecified Status: Acute Plan: --EUS with esophageal stent placement on 12/25 --++hemoptysis --we plan to give weekly Erbitux and XRT outpatient. --patient had OP EGD with biopsy, pathology showed adenocarcinoma. --EGD/Colonoscopy, 11/20/16--showed long stricture in the mid esophagus and distal esophagus, multiple biopsies were performed Pathology revealed invasive adenocarcinoma- distal esophagus --XRT simulation done 12/19. (2) SCC (squamous cell carcinoma) ICD Codes: C44.92 - Squamous cell carcinoma of skin, unspecified Status: Acute Plan: --has a head and neck, lung malignancy which was locally advanced. --received definitive treatment with surgery. Post surgery he had positive margins and some poor risk features and he was about to get concurrent chemotherapy and radiation and adjuvantly to achieve local control of the disease --PET scan to stage his disease prior to treatment showed an esophageal mass (3) Normocytic anemia ICD Codes: D64.9 - Anemia, unspecified Status: Acute Plan: --hgb stable --transfuse packed red blood cells if his hemoglobin drops below 8.5 --s/p iron infusion (4) Afib ICD Codes: I48.91 - Unspecified atrial fibrillation Status: Acute Plan: --cardiology following. --s/p chest tube placement --on Plavix --on ASA --Amiodarone (5) NSTEMI (non-ST elevated myocardial infarction) ICD Codes: I21.4 - Non-ST elevation (NSTEMI) myocardial infarction Status: Chronic Plan: --had elevated troponin and ST-segment changes consistent with acute RI. 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 Also with a new diagnosis of early stage gastric cancer Plan 1. continue supportive care 2. monitor CBC Attending Statement The exam, history, and the medical decision-making described in the above note were completed with the assistance of the mid-level provider. I reviewed and agree with the findings presented. I attest that I had a [id number] encounter with the patient on the same day, and personally performed and documented my assessment and findings in the medical records Problem Qualifiers (1) Afib: Perla Duran Jan 23, 2017 10:42 Brant Bell MD Jan 29, 2017 00:28
--- NOTE | 2017-01-23 14:17 | HHI.PR ---
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 Then during this hospitalization the patient developed respiratory failure. He was on the ventilator. Also had pericardial effusion had pericardiocentesis done and has right pleural effusion and had a chest tube placed. He also developed atrial fibrillation with rapid ventricular rate. Currently he is weaned down to nasal cannula. Chest tube is draining. Has mild chest pain. 01/20: as per start up specialist the plan is to continue Erbitux and Radiation therapy as outpatient, has invasive Adenocarcinoma of distal esophagus, has squamous cell carcinoma of skin, had surgery for Lung malignancy that was locally advanced status post surgery with positive margins, for chemo and radiation therapy, his PET scan performed for staging showed the esophageal mass, has anemia post blood transfusion, has Atrial Fibrillation not yet cleared by start up specialist for discharge. Seen in his bedroom complaint about his chest tube not draining. 01/21: Seen in his bedroom and discussed with nurse Miss Goodwin continue chest tube Right Pl effusion, s/p Chest tube placement, as per relations specialist to remove chest tube when pleural fluid drainage decreases. 01/22: Stable in his bedroom seen in the presence of start up specialist's EDUCATION INTERN , no changes to anterior assessment. 01/23: Seen in his bedroom, the patient removed his Right chest tube by accident yesterday, seen by relations specialist recommended CXR for follow up found with some Interstitial changes on the right but left lower lobe consolidation possible, no further recommendations by Pulmonary, continue with Oncology and Pulmonary not yet cleared for discharge Objective Vital Signs Date Time Temp Pulse Resp B/P (MAP) Pulse Ox O2 Delivery O2 Flow Rate FiO2 01/23/17 13:03 98.6 87 17 113/57 (75) 95 01/23/17 09:33 98.1 89 18 107/48 (67) 99 01/23/17 09:00 99 Room Air 01/23/17 06:17 Room Air 01/23/17 04:00 98.0 87 18 98/48 (65) 97 01/23/17 03:26 Nasal Cannula 2.00 01/23/17 02:22 Nasal Cannula 2.00 01/23/17 00:00 98.5 89 21 115/56 (75) 95 01/22/17 23:02 Room Air 01/22/17 20:00 90 01/22/17 20:00 98.2 87 19 92/44 (60) 97 01/22/17 20:00 Room Air 01/22/17 16:05 98.3 85 16 107/54 (71) 99 I/O 01/22/17 01/22/17 01/22/17 01/23/17 01/23/17 01/23/17 07:00 15:00 23:00 07:00 15:00 23:00 Intake Total 240 ml 320 ml 400 ml Output Total 750 ml 1100 ml 600 ml 850 ml Balance -510 ml -1100 ml -280 ml -450 ml Intake Oral 240 ml 320 ml 400 ml Output Urine Total 750 ml 600 ml 850 ml Chest Tube Drainage Total 1100 ml # Bowel Movements 0 1 2 Result Diagram: 01/23/17 0635 01/23/17 0635 Imaging Last Impressions Chest X-Ray 01/22/17 0000 Signed Impressions: Service Date/Time: January 16:49 - CONCLUSION: Right lung interstitial process and possible left lung base consolidation. Mali Law MD Lower Extremity Ultrasound 01/09/17 0000 Signed Impressions: Service Date/Time: Monday, January 09, 2017 13:01 - CONCLUSION: No DVT is identified within the left lower extremity. Washington Marroquin MD Abdomen X-Ray 01/07/17 0000 Signed Impressions: Service Date/Time: Saturday, January 07, 2017 11:56 - CONCLUSION: Visualized portions of the lower chest demonstrate a presumed esophageal stent. Erik Simon MD Head CT 01/04/17 0000 Signed Impressions: Service Date/Time: Thursday, January 05, 2017 03:41 - CONCLUSION: 1. No acute intracranial abnormalities. Fluid in the mastoid air cells characteristic of mastoiditis. Kervin Krause MD CT Angiography 12/31/16 0000 Signed Impressions: Service Date/Time: Saturday, December 31, 2016 01:00 - CONCLUSION: 1. Study is negative for pulmonary embolism. 2. Pericardial effusion, diffuse patchy consolidation in both lungs, collapse left lower lobe, bilateral pleural effusions, esophageal stent, similar to yesterday's CT thorax. Kulwant Gupta MD Thoracentesis 12/30/16 0000 Signed Impressions: Service Date/Time: Friday, December 30, 2016 15:34 - CONCLUSION: Uncomplicated CT-guided thoracentesis. Kiran Harding MD Chest CT 12/29/16 0000 Signed Impressions: Service Date/Time: Friday, December 30, 2016 10:56 - CONCLUSION: 1. Moderate bilateral pleural effusions. 2. Areas of consolidation in the upper lobes bilaterally and in the right middle and right lower lobe. There is some combination of consolidation and atelectasis seen in the left lower lobe. Underlying diffuse processes should be considered including edema. 3. Esophageal stent in place. There is increased density within the stent which could be from fluid or soft tissue. 4. Non-specific mildly prominent lymph nodes in the mediastinum. 5. Moderate pericardial effusion. 6. Possible 3rd non-displaced right rib fracture. Washington Chou MD GI Procedure 12/25/16 0000 Signed Impressions: Service Date/Time: December 19:33 - CONCLUSION: Spot film as above. Everett Pollock MD FACR Barium Swallow X-Ray 12/20/16 0000 Signed Impressions: Service Date/Time: Tuesday, December 20, 2016 13:15 - CONCLUSION: 1. The distal half of the esophagus demonstrates irregular luminal narrowing consistent with the patient's history of esophageal adenocarcinoma. 2. Mild dilatation of the esophagus immediately proximal to the esophageal mass. However, there are no signs of obstruction. 3. Small hiatal hernia. Washington Marroquin MD Abdomen MRI 12/17/16 Signed Impressions: Service Date/Time: Saturday, December 17, 2016 13:59 - CONCLUSION: 1. No acute finding is identified to explain the abdominal pain. 2. Stable thickening of the distal esophagus. There is a single mildly enlarged left gastric lymph node measuring 12 x 10 mm. 3. Moderate sized bilateral pleural effusions, left larger than right, with associated compressive atelectasis. Washington Marroquin MD Brain MRI 12/01/16 0000 Signed Impressions: Service Date/Time: Thursday, December 01, 2016 12:07 - CONCLUSION: Normal examination. Barrett Rodriguez MD Abdomen/Pelvis CT 11/29/16 0624 Signed Impressions: Service Date/Time: Wednesday, November 30, 2016 01:35 - CONCLUSION: 1. Markedly abnormal appearance of the distal esophagus consistent with the history of esophageal carcinoma. 2. Atherosclerotic calcifications of the aorta and iliac vessels. 3. Cirrhotic appearance to the liver with a mildly nodular contour present. Erik Simon MD Procedures Right axillary art line 12/02/16 Left subclavian central venous line 12/02/16 (Dr. Delarosa) intubation 12/02/16 and 01/01/17 PCI with bare metal stent to LCx by Dr. Krause on 11/30/16 port removal 12/02/16 Dr. Rich. EUS with esophageal stent placement, food bolus removal 12/25/16 Dr. Tejeda Right thoracentesis 12/30/16 (Dr. Harding) Pericardiocentesis and pericardial drain 01/01/17 (Dr. Bueno) Placement of Left #10 [facility] pigtail catheter 01/03. Was dislodged 01/09. Placement of right #10 [facility] pigtail catheter 01/06 Other Results Laboratory Tests Test 11/30/16 01:15 11/30/16 15:45 11/30/16 18:20 12/01/16 05:20 Urine Hyaline Casts 3 /lpf Red Cell Morphology Comment NORMAL Iron Level 11 MCG/DL Total Iron Binding Capacity 269 MCG/DL Percent Iron Saturation 4.1 % Transferrin 192 MG/DL Vitamin B12 Level 345 PG/ML Red Blood Cell Folate 363 Differential Total Cells Counted 100 Neutrophils % (Manual) 77 % Band Neutrophils % 17 % Lymphocytes % 2 % Monocytes % 4 % Neutrophils # (Manual) 11.2 TH/MM3 Thyroid Stimulating Hormone 3rd Gen 0.555 uIU/ML Test 12/01/16 17:00 12/01/16 17:05 12/02/16 06:35 12/02/16 21:23 Urine Color LIGHT-BROWN Urine Turbidity CLOUDY Urine pH 6.0 Urine Specific Encinal 1.023 Urine Protein 100 mg/dL Urine Glucose (UA) TRACE mg/dL Urine Ketones NEG mg/dL Urine Occult Blood LARGE Urine Nitrite NEG Urine Bilirubin NEG Urine Urobilinogen 2.0 MG/DL Urine Leukocyte Esterase TRACE Urine RBC 13 /hpf Urine WBC 12 /hpf Urine Squamous Epithelial Cells 7 /hpf Urine Transitional Epithelial Cells 2 /hpf Urine Amorphous Sediment RARE Urine Bacteria FEW /hpf Urine Mucus MANY /lpf Microscopic Urinalysis Comment CATH-CULTURE IND Ferritin 124 NG/ML Ammonia LESS THAN 10 MCMOL/L [id number] 298 mg/dL Ceruloplasmin 40 mg/dL Tumor Marker Alpha Fetoprotein 1.7 NG/ML Anti-Nuclear Antibody Screen NEG Mitochondria M2 Antibody LESS THAN 20.0 U Anti-Smooth Muscle Antibody Negative Hepatitis A IgM Antibody NEGATIVE Hepatitis B Surface Antigen NEGATIVE Hepatitis B Core IgM Antibody NEGATIVE Hepatitis C Antibody REACTIVE Lactic Acid Level 1.7 mmol/L Vancomycin Level Trough 15.3 MCG/ML Test 12/03/16 08:07 12/03/16 12:53 12/04/16 04:22 12/11/16 03:29 Venous Blood pH 7.43 Venous Blood Partial Pressure CO2 40 mmHg Venous Blood Partial Pressure O2 41 mmHg Venous Blood HCO3 26 mmol/L Venous Blood Oxygen Saturation 68 % Venous Blood Oxygen Content 8.3 Vol % Venous Blood Base Excess 2.1 mmol/L Hepatitis C RNA Genotype NOT DETECTED Hepatitis C RNA (PCR) IUs/ml LESS THAN 15 IU/mL Hepatitis C RNA (PCR) log IUs/ml LESS THAN 1.18 Haptoglobin 516 MG/DL Fibrinogen 436 mg/dL Blood Urea Nitrogen 52 MG/DL Creatinine 1.09 MG/DL Random Glucose 238 MG/DL Total Protein 5.9 GM/DL Albumin 2.0 GM/DL Calcium Level 7.3 MG/DL Magnesium Level 2.2 MG/DL Alkaline Phosphatase 74 U/L Aspartate Amino Transf (AST/SGOT) 91 U/L Alanine Aminotransferase (ALT/SGPT) 43 U/L Lactate Dehydrogenase 534 U/L Total Bilirubin 1.2 MG/DL Sodium Level 142 MEQ/L Potassium Level 3.2 MEQ/L Chloride Level 104 MEQ/L Carbon Dioxide Level 29.2 MEQ/L Triglycerides Level 123 MG/DL Cholesterol Level 100 MG/DL LDL Cholesterol 51 MG/DL HDL Cholesterol 24.3 MG/DL Cholesterol/HDL Ratio 4.11 RATIO Test 12/15/16 02:10 12/16/16 09:00 12/19/16 04:10 12/20/16 05:00 Direct Bilirubin 0.4 MG/DL Indirect Bilirubin 0.4 MG/DL Troponin I 0.09 NG/ML Helmet Cells OCC B-Type Natriuretic Peptide 498 PG/ML Test 12/23/16 06:45 12/25/16 21:42 12/30/16 15:00 12/31/16 04:10 Digoxin Level 0.8 NG/ML Nasal Screen MRSA (PCR) MRSA NOT DETECTED Prothrombin Time 13.0 SEC Prothromb Time International Ratio 1.2 RATIO Activated Partial Thromboplast Time 28.6 SEC Oxygen Delivery Device NRB Blood Gas Liter Flow 15 L/M Test 01/01/17 11:30 01/03/17 04:14 01/04/17 06:44 01/05/17 03:26 Pericardial Fluid pH 8.5 Pericardial Fluid WBC 5170 /MM3 Pericardial Fluid RBC 734447 /MM3 Pericardial Fluid Neutrophils 99 % Pericardial Fluid Lymphocytes 1 % Pericardial Fluid Total Protein 3.4 GM/DL Pericardial Fluid LDH 2922 U/L Pericardial Fluid Glucose 101 MG/DL Random Vancomycin Level 4.1 COMMENT Lipase 60 U/L Total Creatine Kinase 41 U/L Test 01/06/17 04:04 01/06/17 12:30 01/06/17 15:40 01/11/17 06:30 Protein Corrected Calcium 8.4 MG/DL Body Fluid Amylase Source PLEURAL FLUID Body Fluid Amylase 7 U/L Pleural Fluid pH 8.5 Pleural Fluid WBC 110 /MM3 Pleural Fluid RBC 1056 /MM3 Pleural Fluid Neutrophils 53 % Pleural Fluid Lymphocytes 40 % Pleural Fluid Monocytes 2 % Pleural Fluid Histiocytes 2 % Pleural Fluid Mesothelial Cells 3 % Pleural Fluid Total Protein 1.4 GM/DL Pleural Fluid LDH 88 U/L Pleural Fluid Glucose 277 MG/DL Blood Gas Puncture Site RT RADIAL Blood Gas Patient Temperature 98.6 Blood Gas HCO3 29 mmol/L Blood Gas Base Excess 4.2 mmol/L Blood Gas Oxygen Saturation 92 % Arterial Blood pH 7.38 Arterial Blood Partial Pressure CO2 50 mmHg Arterial Blood Partial Pressure O2 75 mmHg Arterial Blood Oxygen Content 11.9 Vol % Arterial Blood Carboxyhemoglobin 1.9 % Arterial Blood Methemoglobin 0.7 % Blood Gas Hemoglobin 9.1 G/DL Blood Gas Ventilator Setting CPAP 5/5 Blood Gas Inspired Oxygen 35 % Blood Urea Nitrogen 16 MG/DL Creatinine 0.46 MG/DL Random Glucose 141 MG/DL Total Protein 5.5 GM/DL Albumin 1.6 GM/DL Calcium Level 7.8 MG/DL Phosphorus Level 3.0 MG/DL Magnesium Level 1.8 MG/DL Alkaline Phosphatase 86 U/L Aspartate Amino Transf (AST/SGOT) 19 U/L Alanine Aminotransferase (ALT/SGPT) 13 U/L Total Bilirubin 0.4 MG/DL Sodium Level 137 MEQ/L Potassium Level 4.1 MEQ/L Chloride Level 99 MEQ/L Carbon Dioxide Level 31.7 MEQ/L Test 01/16/17 06:00 01/17/17 18:45 01/23/17 06:35 Blood Urea Nitrogen 15 MG/DL 20 MG/DL Creatinine 0.47 MG/DL 0.56 MG/DL Random Glucose 119 MG/DL 115 MG/DL Total Protein 5.6 GM/DL Albumin 1.8 GM/DL Calcium Level 7.6 MG/DL 8.2 MG/DL Alkaline Phosphatase 124 U/L Aspartate Amino Transf (AST/SGOT) 20 U/L Alanine Aminotransferase (ALT/SGPT) 11 U/L Total Bilirubin 0.4 MG/DL Sodium Level 134 MEQ/L 131 MEQ/L Potassium Level 4.1 MEQ/L 4.4 MEQ/L Chloride Level 97 MEQ/L 95 MEQ/L Carbon Dioxide Level 31.2 MEQ/L 30.3 MEQ/L Platelet Estimate NORMAL Platelet Morphology Comment NORMAL Ovalocytes 1+ White Blood Count 8.5 TH/MM3 Red Blood Count 2.97 MIL/MM3 Hemoglobin 9.0 GM/DL Hematocrit 26.5 % Mean Corpuscular Volume 89.1 FL Mean Corpuscular Hemoglobin 30.4 PG Mean Corpuscular Hemoglobin Concent 34.1 % Red Cell Distribution Width 19.4 % Platelet Count 246 TH/MM3 Mean Platelet Volume 7.8 FL Neutrophils (%) (Auto) 69.9 % Lymphocytes (%) (Auto) 20.3 % Monocytes (%) (Auto) 8.0 % Eosinophils (%) (Auto) 1.4 % Basophils (%) (Auto) 0.4 % Neutrophils # (Auto) 5.9 TH/MM3 Lymphocytes # (Auto) 1.7 TH/MM3 Monocytes # (Auto) 0.7 TH/MM3 Eosinophils # (Auto) 0.1 TH/MM3 Basophils # (Auto) 0.0 TH/MM3 CBC Comment DIFF FINAL Differential Comment Anion Gap 6 MEQ/L Estimat Glomerular Filtration Rate 149 ML/MIN Objective Remarks GENERAL: laying in bed, appears comfortable CARDIOVASCULAR: rrr w 2/6 murmur. RESPIRATORY: Clear to auscultation. Breath sounds equal bilaterally. No wheezes. GASTROINTESTINAL: Abdomen soft, non-tender, nondistended. MUSCULOSKELETAL: laying in bed, able to move his upper extremities. large decub ulcer present NEURO: awake, alert , answers questions PSYCH: calm, pleasant. not agitated Medications and IVs Current Medications Medications (Trade) Dose Ordered Sig/Geoavnny Route Start Time Stop Time Status Last Admin (NS Flush) 2 ml UNSCH PRN IV FLUSH 11/30/16 02:45 12/24/16 09:59 (NS Flush) 2 ml BID IV FLUSH 11/30/16 09:00 01/23/17 08:09 (Rere-Colace) 1 tab BID PO 11/30/16 09:00 01/23/17 08:08 (Milk Of Magnesia Liq) 30 ml Q12H PRN PO 11/30/16 02:45 (Senokot) 17.2 mg Q12H PRN PO 11/30/16 02:45 (Dulcolax Supp) 10 mg DAILY PRN RECTAL 11/30/16 02:45 (Lactulose Liq) 30 ml DAILY PRN PO 11/30/16 02:45 Miscellaneous Information Patient in critical care unit? Ass... Q361D .XX 11/30/16 05:15 (Tylenol) 325 mg Q4H PRN PO 11/30/16 13:45 12/13/16 17:13 (Atropine Inj) 0.5 mg UNSCH PRN IV 11/30/16 13:45 (Zofran Inj) 4 mg Q4H PRN IV 11/30/16 13:45 12/24/16 22:41 (NS Flush) 5 ml Q21D IV FLUSH 11/30/16 18:00 12/21/16 17:19 (Heparin Central Flush) 500 units Q21D IV FLUSH 11/30/16 18:00 11/30/16 18:04 (NS Flush) 5 ml UNSCH PRN IV FLUSH 11/30/16 18:00 (Heparin Central Flush) 250 units UNSCH PRN IV FLUSH 11/30/16 18:00 01/16/17 06:25 (Romazicon Inj) 0.2 mg Q1M PRN IV PUSH 12/01/16 13:00 (Tylenol 650 Mg/ 20 ml Liq) 650 mg Q6H PRN PO 12/01/16 17:30 12/02/16 01:07 (Miralax) 17 gm DAILY PO 12/04/16 09:00 9/6/17 08:51 (Theragran) 1 tab DAILY PO 12/05/16 09:00 01/23/17 08:08 (Ativan Inj) 1 mg Q4H PRN IV PUSH 12/09/16 15:15 12/31/16 14:16 (Haldol Inj) 2 mg Q8H PRN IM 12/10/16 17:00 (Lipitor) 40 mg HS PO 12/12/16 21:00 Future hold 01/22/17 20:35 (NS Flush) See Protocol DAILY IV FLUSH 12/13/16 09:00 01/23/17 08:10 (NS Flush) See Protocol UNSCH PRN IV FLUSH 12/12/16 17:00 (Heparin Central Flush) See Protocol DAILY IV FLUSH 12/13/16 09:00 01/23/17 08:06 (Heparin Central Flush) See Protocol UNSCH PRN IV FLUSH 12/12/16 17:00 (NS Flush) UNSCH PRN IV FLUSH 12/12/16 17:00 12/19/16 01:59 (Nitrostat Sl) 0.4 mg Q5M PRN SL 12/16/16 00:15 (Ativan) 0.5 mg DAILY PRN PO 12/18/16 15:45 Future Hold 12/19/16 08:29 (Cardizem) 90 mg Q6H PO 12/18/16 23:00 Future Hold 12/25/16 12:14 (Lanoxin) 0.25 mg DAILY PO 12/22/16 09:00 Future Hold 12/25/16 08:06 (Carafate Liq) 1 gm ACHS PO 12/22/16 11:00 01/23/17 08:07 (Lopressor Inj) 5 mg Q1HR PRN IV PUSH 12/22/16 09:45 12/30/16 10:37 (Protonix Inj) 40 mg Q12H IV PUSH 12/22/16 10:00 01/23/17 10:00 (Lopressor) 25 mg Q6HR PO 12/22/16 13:00 01/23/17 13:43 (Duoneb Neb) 1 ampule Q2HR NEB PRN INH 12/25/16 21:00 01/15/17 15:37 (Plavix) 75 mg DAILY PO 12/29/16 09:00 01/23/17 08:08 (Ecotrin Ec) 162 mg DAILY PO 12/29/16 09:00 Future hold 01/23/17 08:08 (Deltasone) 5 mg DAILY PO 12/29/16 09:00 Future hold 01/23/17 08:08 (Peridex 0.12% Liq) 15 ml BID@08,20 MT 01/01/17 20:00 01/21/17 21:52 (Tears Naturale Opth Soln) 1 drop Q8HR EACH EYE 01/04/17 14:00 01/23/17 10:41 (Levemir Inj) 30 units Q12HR SQ 01/06/17 21:00 01/22/17 20:39 (Cordarone) 200 mg Q12HR PO 01/07/17 10:00 01/23/17 08:09 (Synthroid) 50 mcg DAILY@0600 PO 01/11/17 06:00 01/23/17 05:52 (Percocet 10-325 Mg) 1 tab Q4H PRN PO 01/10/17 14:15 01/23/17 13:53 (Roxicodone) 5 mg Q4H PRN PO 01/10/17 14:15 01/22/17 17:31 (Restoril) 15 mg HS PRN PO 01/11/17 11:45 01/23/17 00:19 (D50w (Vial) Inj) 50 ml UNSCH PRN IV 01/11/17 12:15 (Glucagon Inj) 1 mg UNSCH PRN OTHER 01/11/17 12:15 (NovoLOG SUPPLEMENTAL SCALE) 1 ACHS SLIDING SCALE SQ 01/11/17 16:00 01/22/17 20:40 (Lasix Inj) 20 mg Q12HR IV PUSH 01/12/17 21:00 01/23/17 08:07 A/P Assessment and Plan 1. Acute metabolic Encephalopathy Most likely secondary to Hypoxia, sepsis, Resolved. - Completed therapy with Thiamine for Possible alcohol withdrawal 12/05/16, improved. - Currently off all sedation. On Percocet 10 q4. Oxycodone additional 5 as needed for breakthrough. - Restoril 15 qhs PRN sleep 2. Acute Hypoxemic Respiratory failure- Resolved. History of COPD, Tobacco abuse, Bilateral Pleural Effusions - Emergently intubated and placed on mechanical ventilation 12/02/16, extubated 12/03/16 - Re [facility] 16/550//35. Extubated 01/06 - Now on nasal cannula. - CT chest revealed bilateral pleural effusions. Thoracentesis -1200 cc . Placement of Left #10 [place] [facility] pigtail catheter 01/03. Was dislodged 01/09. Placement of right #10 [facility] [place] pigtail catheter 01/06. - Right pleural fluid Cytology negative for malignancy 01/06 and Pleural fluid cytology negative 12/30 the patient removed the right chest tube by accident, CXR taken showed some interstitial changes and probable left lower lung consolidation. 3. Pericardial effusion, tamponade status post pericardiocentesis 01/01/17 Atrial fibrillation with RVR currently normal sinus rhythm NSTEMI Dynamic LVOT obstruction Coronary artery disease status post bare metal stent to left circumflex Krause 12/01 - Emergency Pericardiocentesis drains -01/01. Cc. Cultures no growth. Removed drain 01/06, Followup limited Echo 01/07 EF 60-65%. Trivial small pericardial effusion present - Cardiac catheterization 12/01 revealed EF around 60%. Left main normal. RCA normal. LAD 70% ostial. Bare stent left circumflex 70%. - Resume ASA 162 mg daily, d/c rectal ASA/ Continue Plavix 75 mg daily - Continue amiodarone 200 mg by mouth every 12 hours. - Continue Metoprolol 25 mg every 6 hours - 2-D echo no veg, EF 50-55%. Mild MR, mild AR. Pseudo-outflow obstruction due to concentric hypertrophy and hyperdynamic ventricle - Continue Lasix to 20 g IV twice a day. KCL Effervescent 25 bid x2. - Holding home medications of losartan 100 mg, amlodipine 10 mg daily, normotensive. - Continue atorvastatin 40 by mouth daily for dyslipidemia. - Pericardial fluid cytology 01/01 - negative for malignancy 4. Invasive adenocarcinoma of the esophagus Liver cirrhosis - Tolerating mechanical soft, thin liquids. Speech therapy has signed off. - Patient's intake improving. Discontinue TPN - Has biopsy proven invasive adenocarcinoma of esophagus - Status post EUS/esophageal stent placement 12/25 Dr. Tejeda. - IV Protonix twice a day continue. - Carafate 1 g by mouth daily per her GI - Surgery removed port - Patient declined PEG. Per surgery repeat calorie count. Tolerating supplements. 5. Septic shock-resolved MSSA bacteremia Drxaur-r-Kwzg infection status post removal Pseudomonas pneumonia - Previously Rapid clinical improvement after Mmusee-p-Azce was removed. remains off all pressors - Catheter tip culture blood culture and wound culture also positive for MSSA - Completed Rifampin, for synergy per ID (on po now), Completed Ancef, Levaquin. - Infectious disease Dr. Nassar. 2D Echo neg for endocarditis, Unable to do PAM due to esophageal' Cancer, now off antibiotics. 6. 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 Bell is following - Status post surgical resection for L parotid SCC at [facility] 10/01 - Hematology plans to give weekly Erbitux and XRT outpatient. - Transfuse as needed for hemoglobin less than 8 7. DM II continue long lasting insulin and sliding scale, 8. Hypothyroidism continue Hormonal replacement, is on Prednisone 5 mg daily 9. Sacral decubitus ulcer - Wound care following. Open to air DVT prop - No pharmacological prophylaxis secondary to hemoptysis. Will discuss with GI when we can resume prophylaxis. Patient has LE skin breakdown. Hold SCDs skin breakdown BLE. GI Prop - Pantoprazole 40 iv twice a day Full Code Palliative care is following. Discharge Planning Not yet cleared for discharge by Specialists. Rick Alfaro MD Jan 23, 2017 14:16
[2017-01-23] MEDS ORDERED: LEVOFLOXACIN 750 MG TAB PO ONE (17:00)
[2017-01-23] MEDS: LEVOFLOXACIN 750 MG TAB PO SCH (17:30)
--- NOTE | 2017-01-23 17:39 | PD.WCN.NOT ---
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 Dry area thoroughly, before applying david thick santyl ointment to wound bed and covering with slightly moistened 4x4 gauze and secured with ABD pad and tape. Apply skin prep to periwound skin and before applying ABD and tape. Change daily Continue to encourage patient to reposition every 2 hours and PRN for comfort. Additional Information: Patient seen on for follow up of bilateral buttock, sacral, and coccyx wound, all one full thickness wound without odor and without active drainage. Patient able to stand for wound assessment. Slightly and gently buttocks to visualize entire wound that is open to air. Moist wound bed covering bilateral buttocks, sacrum, and coccyx measures 10.9cm x 2cm x slough. Wound bed tissue consists of ~70% loosely adherent yellow slough, ~ 30% red non granulation tissue with blanching bright red periwound.Patient reports getting up and ambulating to the bathroom. Also is now able to shower and likes to spray wound with shower head on a daily basis. Patient agrees that wound should have dressing on it after he showers. Patient verbalizes turning and repositioning in bed to relieve pressure. Sarah Friedman [facility] Jan 23, 2017 17:39
[2017-01-23] MEDS: ATORVASTATIN 40 MG TAB PO SCH (20:47)
[2017-01-24] VITALS (10 sets, daily range): BP systolic 100–121; BP diastolic 50–59; PULSE 83–89; RESP 18–20; TEMP 96.9–98.3; O2SAT 94–100
[2017-01-24] MEDS: METOPROLOL TARTRATE 25 MG TAB PO SCH ×4 (01:16→16:57)
[2017-01-24] MEDS: TEMAZEPAM 15 MG CAP PO PRN ×2 (01:17→21:16)
[2017-01-24] MEDS: SUCRALFATE 1 GM/10 ML CUP PO SCH ×4 (05:20→21:16)
[2017-01-24] MEDS: LEVOTHYROXINE SODIUM 50 MCG TAB PO SCH (05:20)
[2017-01-24] MEDS: oxyCODONE/ACETAMINOPHEN 10 MG/325 MG TAB PO PRN ×2 (05:21→09:53)
[2017-01-24] MEDS: ARTIFICIAL TEARS OPTH SOLN 15 ML BTL EACH EYE SCH ×3 (05:21→21:17)
[2017-01-24] MEDS: INSULIN ASPART SUPPLEMENTAL SCALE SQ SCH ×4 (05:27→21:00)
[2017-01-24] MEDS: CHLORHEXIDINE 0.12% (ORAL KIT) 15 ML CUP MT SCH ×2 (08:00→20:00)
[2017-01-24] MEDS: SODIUM CHLORIDE 0.9% FLUSH 10 ML FLUSH IV FLUSH SCH ×3 (09:00→21:14)
[2017-01-24] MEDS: DOCUSATE SODIUM 50 MG/SENNA 8.6 MG TAB PO SCH ×2 (09:00→21:00)
[2017-01-24] MEDS: FUROSEMIDE 20 MG/2 ML VIAL IV PUSH SCH ×2 (09:49→21:15)
[2017-01-24] MEDS: PANTOPRAZOLE SODIUM 40 MG VIAL IV PUSH SCH ×2 (09:49→21:15)
[2017-01-24] MEDS: ASPIRIN EC 81 MG TABEC PO SCH (09:51)
[2017-01-24] MEDS: CLOPIDOGREL 75 MG TAB PO SCH (09:51)
[2017-01-24] MEDS: AMIODARONE 200 MG TAB PO SCH ×2 (09:51→21:16)
[2017-01-24] MEDS: predniSONE 5 MG TAB PO SCH (09:52)
[2017-01-24] MEDS: MULTIVITAMIN TAB PO SCH (09:52)
[2017-01-24] MEDS: POLYETHYLENE GLYCOL 17 GM PKG PO SCH (09:52)
[2017-01-24] MEDS: INSULIN DETEMIR 100 UNITS/ML VIAL SQ SCH ×2 (10:07→21:29)
--- NOTE | 2017-01-24 13:53 | HHI.PR ---
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 Then during this hospitalization the patient developed respiratory failure. He was on the ventilator. Also had pericardial effusion had pericardiocentesis done and has right pleural effusion and had a chest tube placed. He also developed atrial fibrillation with rapid ventricular rate. Currently he is weaned down to nasal cannula. Chest tube is draining. Has mild chest pain. 01/20: as per pharmacy customer care specialist the plan is to continue Erbitux and Radiation therapy as outpatient, has invasive Adenocarcinoma of distal esophagus, has squamous cell carcinoma of skin, had surgery for Lung malignancy that was locally advanced status post surgery with positive margins, for chemo and radiation therapy, his PET scan performed for staging showed the esophageal mass, has anemia post blood transfusion, has Atrial Fibrillation not yet cleared by pharmacy customer care specialist for discharge. Seen in his bedroom complaint about his chest tube not draining. 01/21: Seen in his bedroom and discussed with nurse Miss Goodwin continue chest tube Right Pl effusion, s/p Chest tube placement, as per psychiatric clinical nurse specialist to remove chest tube when pleural fluid drainage decreases. 01/22: Stable in his bedroom seen in the presence of pharmacy customer care specialist's BLOOD BANK COORDINATOR , no changes to anterior assessment. 01/23: Seen in his bedroom, the patient removed his Right chest tube by accident yesterday, seen by psychiatric clinical nurse specialist recommended CXR for follow up found with some Interstitial changes on the right but left lower lobe consolidation possible, no further recommendations by Pulmonary, continue with Oncology and Pulmonary not yet cleared for discharge 01/24: Stable seen in his bedroom, discussed with sourcing specialist continue management with Santyl has unstageable Sacral wound, Coccyx and bilateral buttocks, recommended to continue Santyl, reposition every two hours, at this time seen with nurse Miss Cortes in his beedroom, asked me to remove Telemetry I agree. No nausea, vomit or diarrhea. Objective Vital Signs Date Time Temp Pulse Resp B/P (MAP) Pulse Ox O2 Delivery O2 Flow Rate FiO2 01/24/17 12:00 Room Air 01/24/17 09:15 Room Air 01/24/17 04:00 96.9 85 18 121/56 (77) 100 01/24/17 00:00 Room Air 01/24/17 00:00 97.6 88 18 105/50 (68) 99 01/23/17 20:30 Room Air 01/23/17 20:00 98.1 89 20 92/55 (67) 98 01/23/17 20:00 85 01/23/17 16:26 98.0 82 20 104/51 (68) 100 I/O 01/23/17 01/23/17 01/23/17 01/24/17 01/24/17 01/24/17 06:59 14:59 22:59 06:59 14:59 22:59 Intake Total 400 ml 120 ml Output Total 850 ml 350 ml 875 ml Balance -450 ml -350 ml -755 ml Intake Oral 400 ml 120 ml Output Urine Total 850 ml 350 ml 875 ml # Voids 2 # Bowel Movements 2 0 Result Diagram: 01/23/17 0635 01/23/17 0635 Imaging Last Impressions Chest X-Ray 01/22/17 0000 Signed Impressions: Service Date/Time: January 16:49 - CONCLUSION: Right lung interstitial process and possible left lung base consolidation. Mali Law MD Lower Extremity Ultrasound 01/09/17 0000 Signed Impressions: Service Date/Time: Monday, January 09, 2017 13:01 - CONCLUSION: No DVT is identified within the left lower extremity. Washington Marroquin MD Abdomen X-Ray 01/07/17 0000 Signed Impressions: Service Date/Time: Saturday, January 07, 2017 11:56 - CONCLUSION: Visualized portions of the lower chest demonstrate a presumed esophageal stent. Erik Simon MD Head CT 01/04/17 0000 Signed Impressions: Service Date/Time: Thursday, January 05, 2017 03:41 - CONCLUSION: 1. No acute intracranial abnormalities. Fluid in the mastoid air cells characteristic of mastoiditis. Kervin Krause MD CT Angiography 12/31/16 0000 Signed Impressions: Service Date/Time: Saturday, December 31, 2016 01:00 - CONCLUSION: 1. Study is negative for pulmonary embolism. 2. Pericardial effusion, diffuse patchy consolidation in both lungs, collapse left lower lobe, bilateral pleural effusions, esophageal stent, similar to yesterday's CT thorax. Kulwant Gupta MD Thoracentesis 12/30/16 0000 Signed Impressions: Service Date/Time: Friday, December 30, 2016 15:34 - CONCLUSION: Uncomplicated CT-guided thoracentesis. Kiran Harding MD Chest CT 12/29/16 0000 Signed Impressions: Service Date/Time: Friday, December 30, 2016 10:56 - CONCLUSION: 1. Moderate bilateral pleural effusions. 2. Areas of consolidation in the upper lobes bilaterally and in the right middle and right lower lobe. There is some combination of consolidation and atelectasis seen in the left lower lobe. Underlying diffuse processes should be considered including edema. 3. Esophageal stent in place. There is increased density within the stent which could be from fluid or soft tissue. 4. Non-specific mildly prominent lymph nodes in the mediastinum. 5. Moderate pericardial effusion. 6. Possible 3rd non-displaced right rib fracture. Washington Chou MD GI Procedure 12/25/16 0000 Signed Impressions: Service Date/Time: December 19:33 - CONCLUSION: Spot film as above. Everett Pollock MD FACR Barium Swallow X-Ray 12/20/16 0000 Signed Impressions: Service Date/Time: Tuesday, December 20, 2016 13:15 - CONCLUSION: 1. The distal half of the esophagus demonstrates irregular luminal narrowing consistent with the patient's history of esophageal adenocarcinoma. 2. Mild dilatation of the esophagus immediately proximal to the esophageal mass. However, there are no signs of obstruction. 3. Small hiatal hernia. Washington Marroquin MD Abdomen MRI 12/17/16 0000 Signed Impressions: Service Date/Time: Saturday, December 17, 2016 13:59 - CONCLUSION: 1. No acute finding is identified to explain the abdominal pain. 2. Stable thickening of the distal esophagus. There is a single mildly enlarged left gastric lymph node measuring 12 x 10 mm. 3. Moderate sized bilateral pleural effusions, left larger than right, with associated compressive atelectasis. Washington Marroquin MD Brain MRI 12/01/16 0000 Signed Impressions: Service Date/Time: Thursday, December 01, 2016 12:07 - CONCLUSION: Normal examination. Barrett Rodriguez MD Abdomen/Pelvis CT 11/29/16 2356 Signed Impressions: Service Date/Time: Wednesday, November 30, 2016 01:35 - CONCLUSION: 1. Markedly abnormal appearance of the distal esophagus consistent with the history of esophageal carcinoma. 2. Atherosclerotic calcifications of the aorta and iliac vessels. 3. Cirrhotic appearance to the liver with a mildly nodular contour present. Erik Simon MD Procedures Right axillary art line 12/02/16 Left subclavian central venous line 12/02/16 (Dr. Delarosa) intubation 12/02/16 and 01/01/17 PCI with bare metal stent to LCx by Dr. Krause on 11/30/16 port removal 12/02/16 Dr. Rich. EUS with esophageal stent placement, food bolus removal 12/25/16 Dr. Tejeda Right thoracentesis 12/30/16 (Dr. Harding) Pericardiocentesis and pericardial drain 01/01/17 (Dr. Bueno) Placement of Left #10 Turkish pigtail catheter 01/03. Was dislodged 01/09. Placement of right #10 Turkish pigtail catheter 01/06 Other Results Laboratory Tests Test 11/30/16 01:15 11/30/16 15:45 11/30/16 18:20 12/01/16 05:20 Urine Hyaline Casts 3 /lpf Red Cell Morphology Comment NORMAL Iron Level 11 MCG/DL Total Iron Binding Capacity 269 MCG/DL Percent Iron Saturation 4.1 % Transferrin 192 MG/DL Vitamin B12 Level 345 PG/ML Red Blood Cell Folate 363 Differential Total Cells Counted 100 Neutrophils % (Manual) 77 % Band Neutrophils % 17 % Lymphocytes % 2 % Monocytes % 4 % Neutrophils # (Manual) 11.2 TH/MM3 Thyroid Stimulating Hormone 3rd Gen 0.555 uIU/ML Test 12/01/16 17:00 12/01/16 17:05 12/02/16 06:35 12/02/16 21:23 Urine Color LIGHT-BROWN Urine Turbidity CLOUDY Urine pH 6.0 Urine Specific [place] 1.023 Urine Protein 100 mg/dL Urine Glucose (UA) TRACE mg/dL Urine Ketones NEG mg/dL Urine Occult Blood LARGE Urine Nitrite NEG Urine Bilirubin NEG Urine Urobilinogen 2.0 MG/DL Urine Leukocyte Esterase TRACE Urine RBC 13 /hpf Urine WBC 12 /hpf Urine Squamous Epithelial Cells 7 /hpf Urine Transitional Epithelial Cells 2 /hpf Urine Amorphous Sediment RARE Urine Bacteria FEW /hpf Urine Mucus MANY /lpf Microscopic Urinalysis Comment CATH-CULTURE IND Ferritin 124 NG/ML Ammonia LESS THAN 10 MCMOL/L [id number] 298 mg/dL Ceruloplasmin 40 mg/dL Tumor Marker Alpha Fetoprotein 1.7 NG/ML Anti-Nuclear Antibody Screen NEG Mitochondria M2 Antibody LESS THAN 20.0 U Anti-Smooth Muscle Antibody Negative Hepatitis A IgM Antibody NEGATIVE Hepatitis B Surface Antigen NEGATIVE Hepatitis B Core IgM Antibody NEGATIVE Hepatitis C Antibody REACTIVE Lactic Acid Level 1.7 mmol/L Vancomycin Level Trough 15.3 MCG/ML Test 12/03/16 08:07 12/03/16 12:53 12/04/16 04:22 12/11/16 03:29 Venous Blood pH 7.43 Venous Blood Partial Pressure CO2 40 mmHg Venous Blood Partial Pressure O2 41 mmHg Venous Blood HCO3 26 mmol/L Venous Blood Oxygen Saturation 68 % Venous Blood Oxygen Content 8.3 Vol % Venous Blood Base Excess 2.1 mmol/L Hepatitis C RNA Genotype NOT DETECTED Hepatitis C RNA (PCR) IUs/ml LESS THAN 15 IU/mL Hepatitis C RNA (PCR) log IUs/ml LESS THAN 1.18 Haptoglobin 516 MG/DL Fibrinogen 436 mg/dL Blood Urea Nitrogen 52 MG/DL Creatinine 1.09 MG/DL Random Glucose 238 MG/DL Total Protein 5.9 GM/DL Albumin 2.0 GM/DL Calcium Level 7.3 MG/DL Magnesium Level 2.2 MG/DL Alkaline Phosphatase 74 U/L Aspartate Amino Transf (AST/SGOT) 91 U/L Alanine Aminotransferase (ALT/SGPT) 43 U/L Lactate Dehydrogenase 534 U/L Total Bilirubin 1.2 MG/DL Sodium Level 142 MEQ/L Potassium Level 3.2 MEQ/L Chloride Level 104 MEQ/L Carbon Dioxide Level 29.2 MEQ/L Triglycerides Level 123 MG/DL Cholesterol Level 100 MG/DL LDL Cholesterol 51 MG/DL HDL Cholesterol 24.3 MG/DL Cholesterol/HDL Ratio 4.11 RATIO Test 12/15/16 02:10 12/16/16 09:00 12/19/16 04:10 12/20/16 05:00 Direct Bilirubin 0.4 MG/DL Indirect Bilirubin 0.4 MG/DL Troponin I 0.09 NG/ML Helmet Cells OCC B-Type Natriuretic Peptide 498 PG/ML Test 12/23/16 06:45 12/25/16 21:42 12/30/16 15:00 12/31/16 04:10 Digoxin Level 0.8 NG/ML Nasal Screen MRSA (PCR) MRSA NOT DETECTED Prothrombin Time 13.0 SEC Prothromb Time International Ratio 1.2 RATIO Activated Partial Thromboplast Time 28.6 SEC Oxygen Delivery Device NRB Blood Gas Liter Flow 15 L/M Test 01/01/17 11:30 01/03/17 04:14 01/04/17 06:44 01/05/17 03:26 Pericardial Fluid pH 8.5 Pericardial Fluid WBC 5170 /MM3 Pericardial Fluid RBC 847807 /MM3 Pericardial Fluid Neutrophils 99 % Pericardial Fluid Lymphocytes 1 % Pericardial Fluid Total Protein 3.4 GM/DL Pericardial Fluid LDH 2922 U/L Pericardial Fluid Glucose 101 MG/DL Random Vancomycin Level 4.1 COMMENT Lipase 60 U/L Total Creatine Kinase 41 U/L Test 01/06/17 04:04 01/06/17 12:30 01/06/17 15:40 01/11/17 06:30 Protein Corrected Calcium 8.4 MG/DL Body Fluid Amylase Source PLEURAL FLUID Body Fluid Amylase 7 U/L Pleural Fluid pH 8.5 Pleural Fluid WBC 110 /MM3 Pleural Fluid RBC 1056 /MM3 Pleural Fluid Neutrophils 53 % Pleural Fluid Lymphocytes 40 % Pleural Fluid Monocytes 2 % Pleural Fluid Histiocytes 2 % Pleural Fluid Mesothelial Cells 3 % Pleural Fluid Total Protein 1.4 GM/DL Pleural Fluid LDH 88 U/L Pleural Fluid Glucose 277 MG/DL Blood Gas Puncture Site RT RADIAL Blood Gas Patient Temperature 98.6 Blood Gas HCO3 29 mmol/L Blood Gas Base Excess 4.2 mmol/L Blood Gas Oxygen Saturation 92 % Arterial Blood pH 7.38 Arterial Blood Partial Pressure CO2 50 mmHg Arterial Blood Partial Pressure O2 75 mmHg Arterial Blood Oxygen Content 11.9 Vol % Arterial Blood Carboxyhemoglobin 1.9 % Arterial Blood Methemoglobin 0.7 % Blood Gas Hemoglobin 9.1 G/DL Blood Gas Ventilator Setting CPAP 5/5 Blood Gas Inspired Oxygen 35 % Blood Urea Nitrogen 16 MG/DL Creatinine 0.46 MG/DL Random Glucose 141 MG/DL Total Protein 5.5 GM/DL Albumin 1.6 GM/DL Calcium Level 7.8 MG/DL Phosphorus Level 3.0 MG/DL Magnesium Level 1.8 MG/DL Alkaline Phosphatase 86 U/L Aspartate Amino Transf (AST/SGOT) 19 U/L Alanine Aminotransferase (ALT/SGPT) 13 U/L Total Bilirubin 0.4 MG/DL Sodium Level 137 MEQ/L Potassium Level 4.1 MEQ/L Chloride Level 99 MEQ/L Carbon Dioxide Level 31.7 MEQ/L Test 01/16/17 06:00 01/17/17 18:45 01/23/17 06:35 Blood Urea Nitrogen 15 MG/DL 20 MG/DL Creatinine 0.47 MG/DL 0.56 MG/DL Random Glucose 119 MG/DL 115 MG/DL Total Protein 5.6 GM/DL Albumin 1.8 GM/DL Calcium Level 7.6 MG/DL 8.2 MG/DL Alkaline Phosphatase 124 U/L Aspartate Amino Transf (AST/SGOT) 20 U/L Alanine Aminotransferase (ALT/SGPT) 11 U/L Total Bilirubin 0.4 MG/DL Sodium Level 134 MEQ/L 131 MEQ/L Potassium Level 4.1 MEQ/L 4.4 MEQ/L Chloride Level 97 MEQ/L 95 MEQ/L Carbon Dioxide Level 31.2 MEQ/L 30.3 MEQ/L Platelet Estimate NORMAL Platelet Morphology Comment NORMAL Ovalocytes 1+ White Blood Count 8.5 TH/MM3 Red Blood Count 2.97 MIL/MM3 Hemoglobin 9.0 GM/DL Hematocrit 26.5 % Mean Corpuscular Volume 89.1 FL Mean Corpuscular Hemoglobin 30.4 PG Mean Corpuscular Hemoglobin Concent 34.1 % Red Cell Distribution Width 19.4 % Platelet Count 246 TH/MM3 Mean Platelet Volume 7.8 FL Neutrophils (%) (Auto) 69.9 % Lymphocytes (%) (Auto) 20.3 % Monocytes (%) (Auto) 8.0 % Eosinophils (%) (Auto) 1.4 % Basophils (%) (Auto) 0.4 % Neutrophils # (Auto) 5.9 TH/MM3 Lymphocytes # (Auto) 1.7 TH/MM3 Monocytes # (Auto) 0.7 TH/MM3 Eosinophils # (Auto) 0.1 TH/MM3 Basophils # (Auto) 0.0 TH/MM3 CBC Comment DIFF FINAL Differential Comment Anion Gap 6 MEQ/L Estimat Glomerular Filtration Rate 149 ML/MIN Objective Remarks GENERAL: laying in bed, appears comfortable CARDIOVASCULAR: rrr w 2/6 murmur. RESPIRATORY: Clear to auscultation. Breath sounds equal bilaterally. No wheezes. GASTROINTESTINAL: Abdomen soft, non-tender, nondistended. MUSCULOSKELETAL: laying in bed, able to move his upper extremities. large decub ulcer present NEURO: awake, alert , answers questions PSYCH: calm, pleasant. not agitated Medications and IVs Current Medications Medications (Trade) Dose Ordered Sig/Geovnany Route Start Time Stop Time Status Last Admin (NS Flush) 2 ml UNSCH PRN IV FLUSH 11/30/16 02:45 12/24/16 09:59 (NS Flush) 2 ml BID IV FLUSH 11/30/16 09:00 01/23/17 20:47 (Rere-Colace) 1 tab BID PO 11/30/16 09:00 01/23/17 20:47 (Milk Of Magnesia Liq) 30 ml Q12H PRN PO 11/30/16 02:45 (Senokot) 17.2 mg Q12H PRN PO 11/30/16 02:45 (Dulcolax Supp) 10 mg DAILY PRN RECTAL 11/30/16 02:45 (Lactulose Liq) 30 ml DAILY PRN PO 11/30/16 02:45 Miscellaneous Information Patient in critical care unit? Ass... Q361D .XX 11/30/16 05:15 (Tylenol) 325 mg Q4H PRN PO 11/30/16 13:45 12/13/16 17:13 (Atropine Inj) 0.5 mg UNSCH PRN IV 11/30/16 13:45 (Zofran Inj) 4 mg Q4H PRN IV 11/30/16 13:45 12/24/16 22:41 (NS Flush) 5 ml Q21D IV FLUSH 11/30/16 18:00 12/21/16 17:19 (Heparin Central Flush) 500 units Q21D IV FLUSH 11/30/16 18:00 11/30/16 18:04 (NS Flush) 5 ml UNSCH PRN IV FLUSH 11/30/16 18:00 (Heparin Central Flush) 250 units UNSCH PRN IV FLUSH 11/30/16 18:00 01/23/17 20:50 (Romazicon Inj) 0.2 mg Q1M PRN IV PUSH 12/01/16 13:00 (Tylenol 650 Mg/ 20 ml Liq) 650 mg Q6H PRN PO 12/01/16 17:30 12/02/16 01:07 (Miralax) 17 gm DAILY PO 12/04/16 09:00 01/24/17 09:52 (Theragran) 1 tab DAILY PO 12/05/16 09:00 01/24/17 09:52 (Ativan Inj) 1 mg Q4H PRN IV PUSH 12/09/16 15:15 12/31/16 14:16 (Haldol Inj) 2 mg Q8H PRN IM 12/10/16 17:00 (Lipitor) 40 mg HS PO 12/12/16 21:00 Future hold 01/23/17 20:47 (NS Flush) See Protocol DAILY IV FLUSH 12/13/16 09:00 01/24/17 09:49 (NS Flush) See Protocol UNSCH PRN IV FLUSH 12/12/16 17:00 (Heparin Central Flush) See Protocol DAILY IV FLUSH 12/13/16 09:00 01/24/17 09:49 (Heparin Central Flush) See Protocol UNSCH PRN IV FLUSH 12/12/16 17:00 (NS Flush) UNSCH PRN IV FLUSH 12/12/16 17:00 12/19/16 01:59 (Nitrostat Sl) 0.4 mg Q5M PRN SL 12/16/16 00:15 (Ativan) 0.5 mg DAILY PRN PO 12/18/16 15:45 Future Hold 12/19/16 08:29 (Cardizem) 90 mg Q6H PO 12/18/16 23:00 Future Hold 12/25/16 12:14 (Lanoxin) 0.25 mg DAILY PO 12/22/16 09:00 Future Hold 12/25/16 08:06 (Carafate Liq) 1 gm ACHS PO 12/22/16 11:00 01/24/17 12:05 (Lopressor Inj) 5 mg Q1HR PRN IV PUSH 12/22/16 09:45 12/30/16 10:37 (Protonix Inj) 40 mg Q12H IV PUSH 12/22/16 10:00 01/24/17 09:49 (Lopressor) 25 mg Q6HR PO 12/22/16 13:00 01/24/17 12:05 (Duoneb Neb) 1 ampule Q2HR NEB PRN INH 12/25/16 21:00 01/15/17 15:37 (Plavix) 75 mg DAILY PO 12/29/16 09:00 01/24/17 09:51 (Ecotrin Ec) 162 mg DAILY PO 12/29/16 09:00 Future hold 01/24/17 09:51 (Deltasone) 5 mg DAILY PO 12/29/16 09:00 Future hold 01/24/17 09:52 (Peridex 0.12% Liq) 15 ml BID@08,20 MT 01/01/17 20:00 01/21/17 21:52 (Tears Naturale Opth Soln) 1 drop Q8HR EACH EYE 01/04/17 14:00 01/24/17 05:21 (Levemir Inj) 30 units Q12HR SQ 01/06/17 21:00 01/24/17 10:07 (Cordarone) 200 mg Q12HR PO 01/07/17 10:00 01/24/17 09:51 (Synthroid) 50 mcg DAILY@0600 PO 01/11/17 06:00 01/24/17 05:20 (Percocet 10-325 Mg) 1 tab Q4H PRN PO 01/10/17 14:15 01/24/17 09:53 (Roxicodone) 5 mg Q4H PRN PO 01/10/17 14:15 01/22/17 17:31 (Restoril) 15 mg HS PRN PO 01/11/17 11:45 01/24/17 01:17 (D50w (Vial) Inj) 50 ml UNSCH PRN IV 01/11/17 12:15 (Glucagon Inj) 1 mg UNSCH PRN OTHER 01/11/17 12:15 (NovoLOG SUPPLEMENTAL SCALE) 1 ACHS SLIDING SCALE SQ 01/11/17 16:00 01/24/17 12:05 (Lasix Inj) 20 mg Q12HR IV PUSH 01/12/17 21:00 01/24/17 09:49 (Levaquin) 750 mg DAILY PO 01/24/17 09:00 01/23/17 17:30 A/P Assessment and Plan 1. Acute metabolic Encephalopathy Most likely secondary to Hypoxia, sepsis, Resolved. - Completed therapy with Thiamine for Possible alcohol withdrawal 12/05/16, improved. - Currently off all sedation. On Percocet 10 q4. Oxycodone additional 5 as needed for breakthrough. - Restoril 15 qhs PRN sleep 2. Acute Hypoxemic Respiratory failure- Resolved. History of COPD, Tobacco abuse, Bilateral Pleural Effusions - Emergently intubated and placed on mechanical ventilation 12/02/16, extubated 12/03/16 - Re [facility]01[facility] 16/550/1/5/35. Extubated 01/06 - Now on nasal cannula. - CT chest revealed bilateral pleural effusions. Thoracentesis -1200 cc . Placement of Left #10 Turkish pigtail catheter 01/03. Was dislodged 01/09. Placement of right #10 Turkish pigtail catheter 01/06. - Right pleural fluid Cytology negative for malignancy 01/06 and Pleural fluid cytology negative 12/30 the patient removed the right chest tube by accident, CXR taken showed some interstitial changes and probable left lower lung consolidation. psychiatric clinical nurse specialist following. 3. Pericardial effusion, tamponade status post pericardiocentesis 01/01/17 Atrial fibrillation with RVR currently normal sinus rhythm NSTEMI Dynamic LVOT obstruction Coronary artery disease status post bare metal stent to left circumflex Krause 12/01 - Emergency Pericardiocentesis drains -01/01. Cc. Cultures no growth. Removed drain 01/06, Followup limited Echo 01/07 EF 60-65%. Trivial small pericardial effusion present - Cardiac catheterization 12/01 revealed EF around 60%. Left main normal. RCA normal. LAD 70% ostial. Bare stent left circumflex 70%. - Resume ASA 162 mg daily, d/c rectal ASA/ Continue Plavix 75 mg daily - Continue amiodarone 200 mg by mouth every 12 hours. - Continue Metoprolol 25 mg every 6 hours - 2-D echo no veg, EF 50-55%. Mild MR, mild AR. Pseudo-outflow obstruction due to concentric hypertrophy and hyperdynamic ventricle - Continue Lasix to 20 g IV twice a day. KCL Effervescent 25 bid x2. - Holding home medications of losartan 100 mg, amlodipine 10 mg daily, normotensive. - Continue atorvastatin 40 by mouth daily for dyslipidemia. - Pericardial fluid cytology 01/01 - negative for malignancy 4. Invasive adenocarcinoma of the esophagus Liver cirrhosis - Tolerating mechanical soft, thin liquids. Speech therapy has signed off. - Patient's intake improving. Discontinue TPN - Has biopsy proven invasive adenocarcinoma of esophagus - Status post EUS/esophageal stent placement 12/25 Dr. Tejeda. - IV Protonix twice a day continue. - Carafate 1 g by mouth daily per her GI - Surgery removed port - Patient declined PEG. Per surgery repeat calorie count. Tolerating supplements. 5. Septic shock-resolved MSSA bacteremia [id number] infection status post removal Pseudomonas pneumonia - Previously Rapid clinical improvement after [id number] was removed. remains off all pressors - Catheter tip culture blood culture and wound culture also positive for MSSA - Completed Rifampin, for synergy per ID (on po now), Completed Ancef, Levaquin. - Infectious disease Dr. Nassar. 2D Echo neg for endocarditis, Unable to do PAM due to esophageal' Cancer, now off antibiotics. 6. 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 Bell is following - Status post surgical resection for L parotid SCC at [facility] 10/01 - Hematology plans to give weekly Erbitux and XRT outpatient. - Transfuse as needed for hemoglobin less than 8 7. DM II continue long lasting insulin and sliding scale, 8. Hypothyroidism continue Hormonal replacement, is on Prednisone 5 mg daily 9. Stage IV Sacral, Coccyx ulcer, - Wound care following. to continue Santyl and DVT prop - No pharmacological prophylaxis secondary to hemoptysis. Will discuss with GI when we can resume prophylaxis. Patient has LE skin breakdown. Hold SCDs skin breakdown BLE. GI Prop - Pantoprazole 40 iv twice a day Full Code Palliative care is following. Discharge Planning Not yet cleared for discharge by Specialists. Discontinued Telemetry Rick Alfaro MD Jan 24, 2017 13:53
[2017-01-24] MEDS: COLLAGENASE OINT 30 GM TUBE TOPICAL SCH (15:18)
--- NOTE | 2017-01-24 15:24 | HHI.PR ---
Subjective Remarks alert no sob chest tube accidentally removed Objective Vital Signs Date Time Temp Pulse Resp B/P (MAP) Pulse Ox O2 Delivery O2 Flow Rate FiO2 01/24/17 12:00 Room Air 01/24/17 09:15 Room Air 01/24/17 08:00 97.9 85 18 118/59 (78) 94 01/24/17 07:58 84 01/24/17 04:00 96.9 85 18 121/56 (77) 100 01/24/17 00:00 Room Air 01/24/17 00:00 97.6 88 18 105/50 (68) 99 01/23/17 20:30 Room Air 01/23/17 20:00 98.1 89 20 92/55 (67) 98 01/23/17 20:00 85 01/23/17 16:26 98.0 82 20 104/51 (68) 100 I/O 01/23/17 01/23/17 01/23/17 01/24/17 01/24/17 01/24/17 06:59 14:59 22:59 06:59 14:59 22:59 Intake Total 400 ml 120 ml Output Total 850 ml 350 ml 875 ml Balance -450 ml -350 ml -755 ml Intake Oral 400 ml 120 ml Output Urine Total 850 ml 350 ml 875 ml # Voids 2 # Bowel Movements 2 0 Result Diagram: 01/23/17 0635 01/23/17 0635 Procedures Right axillary art line 12/02/16 Left subclavian central venous line 12/02/16 (Dr. Delarosa) intubation 12/02/16 and 01/01/17 PCI with bare metal stent to LCx by Dr. Krause on 11/30/16 port removal 12/02/16 Dr. Rich. EUS with esophageal stent placement, food bolus removal 12/25/16 Dr. Tejeda Right thoracentesis 12/30/16 (Dr. Harding) Pericardiocentesis and pericardial drain 01/01/17 (Dr. Bueno) Placement of Left #10 [place] pigtail catheter 01/03. Was dislodged 01/09. Placement of right #10 [place] pigtail catheter 01/06 Objective Remarks GENERAL: SKIN: Warm and dry. HEAD: Atraumatic. Normocephalic. EYES: Pupils equal and round. No scleral icterus. No injection or drainage. ENT: No nasal bleeding or discharge. Mucous membranes pink and moist. NECK: Trachea midline. No JVD. CARDIOVASCULAR: Regular rate and rhythm. RESPIRATORY: No accessory muscle use. Clear to auscultation. Breath sounds equal bilaterally. GASTROINTESTINAL: Abdomen soft, non-tender, nondistended. Hepatic and splenic margins not palpable. MUSCULOSKELETAL: Extremities without clubbing, cyanosis, or edema. No obvious deformities. NEUROLOGICAL: Awake and alert. No obvious cranial nerve deficits. Motor grossly within normal limits. Five out of 5 muscle strength in the arms and legs. Normal speech. PSYCHIATRIC: Appropriate mood and affect; insight and judgment normal. Assessment and Plan Assessment and Plan pleural effusion lung ca no distress plan check cxray post accidental chest tube removal Discharge Planning Laboratory Tests Test 01/23/17 06:35 Red Blood Count 2.97 MIL/MM3 (4.50-5.90) Hemoglobin 9.0 GM/DL (13.0-17.0) Hematocrit 26.5 % (39.0-51.0) Red Cell Distribution Width 19.4 % (11.6-17.2) Blood Urea Nitrogen 20 MG/DL (7-18) Creatinine 0.56 MG/DL (0.60-1.30) Random Glucose 115 MG/DL (74-106) Calcium Level 8.2 MG/DL (8.5-10.1) Sodium Level 131 MEQ/L (136-145) Chloride Level 95 MEQ/L (98-107) Rickie Damian MD Jan 24, 2017 15:24
--- NOTE | 2017-01-24 17:10 | RADRPT ---
EXAM DATE/TIME: 01/24/2017 16:26 [facility] COMPARISON: CHEST SINGLE AP, January 22, 2017, 16:49. INDICATIONS : Pleural effusion MEDICAL HISTORY : Hypertension. Hypercholesterolemia. CAD. Hepatitis C. SURGICAL HISTORY : Appendectomy ENCOUNTER: Subsequent ACUITY: 1 month PAIN SCORE: 0/10 LOCATION: Bilateral chest FINDINGS: PA and lateral views of the chest. Small right pleural effusion. Interstitial opacity of the lungs ri ght greater than left with increased when compared to prior studies 01/22/2017. Left-sided PICC line re eric in place. Stent is seen in the lower thorax on the lateral view only. CONCLUSION: 1. Increase in interstitial opacity right greater than left indicating asymmetric pulmonary edema mira mi infection. 2. Small right pleural effusion. Jarod Mcrae MD on January 24, 2017 at 17:06 Board Certified Radiologist. This report was verified electronically.
[2017-01-24] MEDS: ATORVASTATIN 40 MG TAB PO SCH (21:16)
[2017-01-25] VITALS (7 sets, daily range): BP systolic 93–104; BP diastolic 48–55; PULSE 84–92; RESP 18–20; TEMP 97.3–98.1; O2SAT 94–100
[2017-01-25] MEDS: METOPROLOL TARTRATE 25 MG TAB PO SCH ×4 (00:33→16:50)
[2017-01-25] MEDS: oxyCODONE/ACETAMINOPHEN 10 MG/325 MG TAB PO PRN ×3 (03:44→20:40)
[2017-01-25] MEDS: LEVOTHYROXINE SODIUM 50 MCG TAB PO SCH (05:25)
[2017-01-25] MEDS: SUCRALFATE 1 GM/10 ML CUP PO SCH ×4 (05:31→20:41)
[2017-01-25] MEDS: INSULIN ASPART SUPPLEMENTAL SCALE SQ SCH ×4 (05:34→20:58)
[2017-01-25] MEDS: ARTIFICIAL TEARS OPTH SOLN 15 ML BTL EACH EYE SCH ×3 (06:00→20:44)
[2017-01-25] MEDS: CHLORHEXIDINE 0.12% (ORAL KIT) 15 ML CUP MT SCH ×2 (07:41→20:00)
[2017-01-25] MEDS: DOCUSATE SODIUM 50 MG/SENNA 8.6 MG TAB PO SCH ×2 (09:00→20:39)
[2017-01-25] MEDS: SODIUM CHLORIDE 0.9% FLUSH 10 ML FLUSH IV FLUSH SCH ×3 (09:00→20:44)
[2017-01-25] MEDS: PANTOPRAZOLE SODIUM 40 MG VIAL IV PUSH SCH ×2 (09:08→20:44)
[2017-01-25] MEDS: predniSONE 5 MG TAB PO SCH (09:08)
[2017-01-25] MEDS: FUROSEMIDE 20 MG/2 ML VIAL IV PUSH SCH ×2 (09:08→20:42)
[2017-01-25] MEDS: POLYETHYLENE GLYCOL 17 GM PKG PO SCH (09:08)
[2017-01-25] MEDS: ASPIRIN EC 81 MG TABEC PO SCH (09:08)
[2017-01-25] MEDS: MULTIVITAMIN TAB PO SCH (09:08)
[2017-01-25] MEDS: LEVOFLOXACIN 750 MG TAB PO SCH (09:08)
[2017-01-25] MEDS: CLOPIDOGREL 75 MG TAB PO SCH (09:09)
[2017-01-25] MEDS: AMIODARONE 200 MG TAB PO SCH ×2 (09:09→20:40)
[2017-01-25] MEDS: INSULIN DETEMIR 100 UNITS/ML VIAL SQ SCH ×2 (09:15→20:56)
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
[2017-01-25] MEDS: COLLAGENASE OINT 30 GM TUBE TOPICAL SCH (11:43)
--- NOTE | 2017-01-25 14:02 | HHI.PR ---
Subjective Remarks alert no sob chest tube accidentally removed Objective Vital Signs Date Time Temp Pulse Resp B/P (MAP) Pulse Ox O2 Delivery O2 Flow Rate FiO2 01/25/17 12:05 97.3 87 18 93/48 (63) 100 01/25/17 09:15 Room Air 01/25/17 08:25 97.4 90 20 104/53 (70) 96 01/25/17 08:00 92 01/25/17 04:00 97.7 90 20 103/55 (71) 100 01/25/17 04:00 Nasal Cannula 2.00 01/25/17 00:00 Room Air 01/24/17 23:45 102/50 (67) Automatic Cuff 01/24/17 22:13 83 01/24/17 21:13 100/50 (67) Automatic Cuff 01/24/17 20:00 97.6 88 20 100 01/24/17 19:23 Room Air 01/24/17 16:00 98.3 89 20 108/54 (72) 99 01/24/17 16:00 Room Air I/O 01/24/17 01/24/17 01/24/17 01/25/17 01/25/17 01/25/17 06:59 14:59 22:59 06:59 14:59 22:59 Intake Total 120 ml 1080 ml Output Total 875 ml 900 ml Balance -755 ml 180 ml Intake Oral 120 ml 1080 ml Output Urine Total 875 ml 900 ml # Bowel Movements 0 0 Result Diagram: 01/23/17 0635 01/23/17 0635 Procedures Right axillary art line 12/02/16 Left subclavian central venous line 12/02/16 (Dr. Delarosa) intubation 12/02/16 and 01/01/17 PCI with bare metal stent to LCx by Dr. Krause on 11/30/16 port removal 12/02/16 Dr. Rich. EUS with esophageal stent placement, food bolus removal 12/25/16 Dr. Tejeda Right thoracentesis 12/30/16 (Dr. Harding) Pericardiocentesis and pericardial drain 01/01/17 (Dr. Bueno) Placement of Left #10 Icelandic pigtail catheter 01/03. Was dislodged 01/09. Placement of right #10 Icelandic pigtail catheter 01/06 Objective Remarks Laboratory Tests Test 01/23/17 06:35 Red Blood Count 2.97 MIL/MM3 (4.50-5.90) Hemoglobin 9.0 GM/DL (13.0-17.0) Hematocrit 26.5 % (39.0-51.0) Red Cell Distribution Width 19.4 % (11.6-17.2) Blood Urea Nitrogen 20 MG/DL (7-18) Creatinine 0.56 MG/DL (0.60-1.30) Random Glucose 115 MG/DL (74-106) Calcium Level 8.2 MG/DL (8.5-10.1) Sodium Level 131 MEQ/L (136-145) Chloride Level 95 MEQ/L (98-107) GENERAL: SKIN: Warm and dry. HEAD: Atraumatic. Normocephalic. EYES: Pupils equal and round. No scleral icterus. No injection or drainage. ENT: No nasal bleeding or discharge. Mucous membranes pink and moist. NECK: Trachea midline. No JVD. CARDIOVASCULAR: Regular rate and rhythm. RESPIRATORY: No accessory muscle use. Clear to auscultation. Breath sounds equal bilaterally. GASTROINTESTINAL: Abdomen soft, non-tender, nondistended. Hepatic and splenic margins not palpable. MUSCULOSKELETAL: Extremities without clubbing, cyanosis, or edema. No obvious deformities. NEUROLOGICAL: Awake and alert. No obvious cranial nerve deficits. Motor grossly within normal limits. Five out of 5 muscle strength in the arms and legs. Normal speech. PSYCHIATRIC: Appropriate mood and affect; insight and judgment normal. Assessment and Plan Assessment and Plan pleural effusion lung ca no distress plan F/U cxray post accidental chest tube removal Rickie Damian MD Jan 25, 2017 14:02
[2017-01-25] MEDS: TEMAZEPAM 15 MG CAP PO PRN (20:41)
[2017-01-25] MEDS: ATORVASTATIN 40 MG TAB PO SCH (20:41)
[2017-01-26] VITALS (8 sets, daily range): BP systolic 93–108; BP diastolic 52–56; PULSE 61–95; RESP 17–20; TEMP 97.2–98; O2SAT 95–100
[2017-01-26] MEDS: oxyCODONE/ACETAMINOPHEN 10 MG/325 MG TAB PO PRN ×3 (00:44→12:18)
[2017-01-26] MEDS: SUCRALFATE 1 GM/10 ML CUP PO SCH ×4 (05:20→20:15)
[2017-01-26] MEDS: LEVOTHYROXINE SODIUM 50 MCG TAB PO SCH (05:20)
[2017-01-26] MEDS: ARTIFICIAL TEARS OPTH SOLN 15 ML BTL EACH EYE SCH ×3 (05:21→22:55)
[2017-01-26] MEDS: METOPROLOL TARTRATE 25 MG TAB PO SCH ×5 (05:21→22:58)
[2017-01-26] MEDS: INSULIN ASPART SUPPLEMENTAL SCALE SQ SCH ×4 (05:30→20:21)
[2017-01-26 07:31] LABS: HEMATOCRIT 26.2 % (39.0-51.0); MEAN CELL VOLUME 90.4 FL (80.0-100.0); MEAN CORPUSCULAR HEMOGLOBIN 29.7 PG (27.0-34.0); MEAN CORPUSCULAR HGB CONC 32.9 % (32.0-36.0); PLATELET COUNT 232 TH/MM3 (150-450); RED CELL DISTRIBUTION WIDTH 19.8 % (11.6-17.2); REVIEW FLAG FINAL; WHITE BLOOD COUNT 8.3 TH/MM3 (4.0-11.0)
[2017-01-26 07:54] LABS: BICARBONATE 28.6 MEQ/L (21.0-32.0); POTASSIUM 4.8 MEQ/L (3.5-5.1)
[2017-01-26] MEDS: CHLORHEXIDINE 0.12% (ORAL KIT) 15 ML CUP MT SCH (08:00)
[2017-01-26] MEDS: SODIUM CHLORIDE 0.9% FLUSH 10 ML FLUSH IV FLUSH SCH ×3 (08:39→20:16)
[2017-01-26] MEDS: FUROSEMIDE 20 MG/2 ML VIAL IV PUSH SCH ×2 (08:40→20:16)
[2017-01-26] MEDS: PANTOPRAZOLE SODIUM 40 MG VIAL IV PUSH SCH ×2 (08:40→22:55)
[2017-01-26] MEDS: DOCUSATE SODIUM 50 MG/SENNA 8.6 MG TAB PO SCH ×2 (08:41→20:16)
[2017-01-26] MEDS: AMIODARONE 200 MG TAB PO SCH ×2 (08:41→20:16)
[2017-01-26] MEDS: CLOPIDOGREL 75 MG TAB PO SCH (08:41)
[2017-01-26] MEDS: POLYETHYLENE GLYCOL 17 GM PKG PO SCH (08:41)
[2017-01-26] MEDS: ASPIRIN EC 81 MG TABEC PO SCH (08:41)
[2017-01-26] MEDS: LEVOFLOXACIN 750 MG TAB PO SCH (08:41)
[2017-01-26] MEDS: MULTIVITAMIN TAB PO SCH (08:41)
[2017-01-26] MEDS: INSULIN DETEMIR 100 UNITS/ML VIAL SQ SCH ×2 (08:46→20:19)
[2017-01-26] MEDS: COLLAGENASE OINT 30 GM TUBE TOPICAL SCH (08:47)
--- NOTE | 2017-01-26 15:08 | HHI.PR ---
Subjective Remarks The pt was anxious and wanted to go home or to rehab. He said he was stressed out from being in the hospital. Breathing comfortably. Had a bowel movement this AM. Objective Vitals Vital Signs Date Time Temp Pulse Resp B/P (MAP) Pulse Ox O2 Delivery O2 Flow Rate FiO2 01/26/17 13:15 95 01/26/17 12:05 97.6 94 18 108/54 (72) 99 01/26/17 09:00 Room Air 01/26/17 08:35 97.2 94 20 106/55 (72) 98 01/26/17 04:00 97.2 91 19 97/52 (67) 100 01/26/17 00:00 97.9 90 17 102/56 (71) 95 01/25/17 21:10 21 01/25/17 20:00 98.0 84 18 94/50 (65) 100 01/25/17 20:00 85 01/25/17 19:00 98 Room Air 01/25/17 17:28 94 01/25/17 16:05 98.1 92 18 102/51 (68) 98 01/25/17 16:00 Room Air I/O 01/25/17 01/25/17 01/25/17 01/26/17 01/26/17 01/26/17 07:00 15:00 23:00 07:00 15:00 23:00 Intake Total 720 ml Output Total 600 ml 700 ml Balance 120 ml -700 ml Intake Oral 720 ml Output Urine Total 600 ml 700 ml # Bowel Movements 0 Result Diagram: 01/26/17 0600 01/26/17 0600 Objective Remarks GENERAL: Resting comfortably HEENT: NC, AT. CARDIOVASCULAR: rrr w harsh systolic murmur. RESPIRATORY: CTAB. No W/R/R. GASTROINTESTINAL: Abdomen soft, non-tender, nondistended. MUSCULOSKELETAL: 2-3+ LE edema. NEURO: awake, alert , answers questions PSYCH: Anxious. Procedures Right axillary art line 12/02/16 Left subclavian central venous line 12/02/16 (Dr. Delarosa) intubation 12/02/16 and 01/01/17 PCI with bare metal stent to LCx by Dr. Krause on 11/30/16 port removal 12/02/16 Dr. Rich. EUS with esophageal stent placement, food bolus removal 12/25/16 Dr. Tejeda Right thoracentesis 12/30/16 (Dr. Harding) Pericardiocentesis and pericardial drain 01/01/17 (Dr. Bueno) Placement of Left #10 [place] pigtail catheter 01/03. Was dislodged 01/09. Placement of right #10 [place] pigtail catheter 01/06 Medications and IVs Current Medications Medications (Trade) Dose Ordered Sig/Geovanny Route Start Time Stop Time Status Last Admin (NS Flush) 2 ml UNSCH PRN IV FLUSH 11/30/16 02:45 12/24/16 09:59 (NS Flush) 2 ml BID IV FLUSH 11/30/16 09:00 01/25/17 20:44 (Rere-Colace) 1 tab BID PO 11/30/16 09:00 01/26/17 08:41 (Milk Of Magnesia Liq) 30 ml Q12H PRN PO 11/30/16 02:45 (Senokot) 17.2 mg Q12H PRN PO 11/30/16 02:45 (Dulcolax Supp) 10 mg DAILY PRN RECTAL 11/30/16 02:45 (Lactulose Liq) 30 ml DAILY PRN PO 11/30/16 02:45 Miscellaneous Information Patient in critical care unit? Ass... Q361D .XX 11/30/16 05:15 (Tylenol) 325 mg Q4H PRN PO 11/30/16 13:45 12/13/16 17:13 (Zofran Inj) 4 mg Q4H PRN IV 11/30/16 13:45 12/24/16 22:41 (NS Flush) 5 ml Q21D IV FLUSH 11/30/16 18:00 12/21/16 17:19 (Heparin Central Flush) 500 units Q21D IV FLUSH 11/30/16 18:00 11/30/16 18:04 (NS Flush) 5 ml UNSCH PRN IV FLUSH 11/30/16 18:00 (Heparin Central Flush) 250 units UNSCH PRN IV FLUSH 11/30/16 18:00 01/23/17 20:50 (Romazicon Inj) 0.2 mg Q1M PRN IV PUSH 12/01/16 13:00 (Tylenol 650 Mg/ 20 ml Liq) 650 mg Q6H PRN PO 12/01/16 17:30 12/02/16 01:07 (Miralax) 17 gm DAILY PO 12/04/16 09:00 01/26/17 08:41 (Theragran) 1 tab DAILY PO 12/05/16 09:00 01/26/17 08:41 (Lipitor) 40 mg HS PO 12/12/16 21:00 Future hold 01/25/17 20:41 (NS Flush) See Protocol DAILY IV FLUSH 12/13/16 09:00 01/26/17 08:41 (NS Flush) See Protocol UNSCH PRN IV FLUSH 12/12/16 17:00 (Heparin Central Flush) See Protocol DAILY IV FLUSH 12/13/16 09:00 01/26/17 08:41 (Heparin Central Flush) See Protocol UNSCH PRN IV FLUSH 12/12/16 17:00 (NS Flush) UNSCH PRN IV FLUSH 12/12/16 17:00 12/19/16 01:59 (Nitrostat Sl) 0.4 mg Q5M PRN SL 12/16/16 00:15 (Ativan) 0.5 mg DAILY PRN PO 12/18/16 15:45 Future Hold 12/19/16 08:29 (Cardizem) 90 mg Q6H PO 12/18/16 23:00 Future Hold 12/25/16 12:14 (Lanoxin) 0.25 mg DAILY PO 12/22/16 09:00 Future Hold 12/25/16 08:06 (Carafate Liq) 1 gm ACHS PO 12/22/16 11:00 01/26/17 12:18 (Lopressor Inj) 5 mg Q1HR PRN IV PUSH 12/22/16 09:45 12/30/16 10:37 (Protonix Inj) 40 mg Q12H IV PUSH 12/22/16 10:00 01/26/17 08:40 (Lopressor) 25 mg Q6HR PO 12/22/16 13:00 01/26/17 12:18 (Duoneb Neb) 1 ampule Q2HR NEB PRN INH 12/25/16 21:00 01/15/17 15:37 (Plavix) 75 mg DAILY PO 12/29/16 09:00 01/26/17 08:41 (Ecotrin Ec) 162 mg DAILY PO 12/29/16 09:00 Future hold 01/26/17 08:41 (Tears Naturale Opth Soln) 1 drop Q8HR EACH EYE 01/04/17 14:00 01/26/17 05:21 (Levemir Inj) 30 units Q12HR SQ 01/06/17 21:00 01/26/17 08:46 (Cordarone) 200 mg Q12HR PO 01/07/17 10:00 01/26/17 08:41 (Synthroid) 50 mcg DAILY@0600 PO 01/11/17 06:00 01/26/17 05:20 (Percocet 10-325 Mg) 1 tab Q4H PRN PO 01/10/17 14:15 01/26/17 12:18 (Roxicodone) 5 mg Q4H PRN PO 01/10/17 14:15 01/22/17 17:31 (Restoril) 15 mg HS PRN PO 01/11/17 11:45 01/25/17 20:41 (D50w (Vial) Inj) 50 ml UNSCH PRN IV 01/11/17 12:15 (Glucagon Inj) 1 mg UNSCH PRN OTHER 01/11/17 12:15 (NovoLOG SUPPLEMENTAL SCALE) 1 ACHS SLIDING SCALE SQ 01/11/17 16:00 01/26/17 12:22 (Lasix Inj) 20 mg Q12HR IV PUSH 01/12/17 21:00 01/26/17 08:40 (Levaquin) 750 mg DAILY PO 01/24/17 09:00 01/26/17 08:41 (Santyl Oint) 1 applic DAILY TOPICAL 01/24/17 15:00 01/26/17 08:47 (Deltasone) 5 mg Q48H PO 01/27/17 09:00 02/02/17 08:59 A/P Problem List: (1) Intractable abdominal pain ICD Code: R10.9 - Unspecified abdominal pain Status: Acute (2) Esophageal carcinoma ICD Code: C15.9 - Malignant neoplasm of esophagus, unspecified Status: Acute (3) SCC (squamous cell carcinoma) ICD Code: C44.92 - Squamous cell carcinoma of skin, unspecified Status: Acute (4) Hypokalemia ICD Code: E87.6 - Hypokalemia Status: Acute (5) Lactic acidosis ICD Code: E87.2 - Acidosis Status: Acute (6) Renal insufficiency ICD Code: N28.9 - Disorder of kidney and ureter, unspecified Status: Acute (7) Elevated troponin ICD Code: R74.8 - Abnormal levels of other serum enzymes Status: Acute (8) DM (diabetes mellitus) ICD Code: E11.9 - Type 2 diabetes mellitus without complications Status: Acute (9) Tobacco abuse ICD Code: Z72.0 - Tobacco abuse Status: Acute (10) NSTEMI (non-ST elevated myocardial infarction) ICD Code: I21.4 - Non-ST elevation (NSTEMI) myocardial infarction Status: Chronic (11) Bacteremia due to Gram-positive bacteria ICD Code: R78.81 - Bacteremia Status: Acute (12) Encephalopathy, metabolic ICD Code: G93.41 - Metabolic encephalopathy Status: Acute Assessment and Plan Acute metabolic Encephalopathy Most likely secondary to Hypoxia, sepsis, Resolved. - Completed therapy with Thiamine for Possible alcohol withdrawal 12/05/16, improved. - Currently off all sedation. On Percocet 10 q4. Oxycodone additional 5 as needed for breakthrough. - Ativan started for anxiety. Will monitor mental status. Acute Hypoxemic Respiratory failure- Resolved. History of COPD, Tobacco abuse, Bilateral Pleural Effusions - Emergently intubated and placed on mechanical ventilation 12/02/16, extubated 12/03/16 - [facility] 16/550/1/5/35. Extubated 01/06 - Now on nasal cannula. - CT chest revealed bilateral pleural effusions. Thoracentesis -1200 cc 12/30. Placement of Left #10 [place] pigtail catheter 01/03. Was dislodged 01/09. Placement of right #10 [place] pigtail catheter 01/06. - Right pleural fluid Cytology negative for malignancy 01/06 and Pleural fluid cytology negative 12/30 - the patient removed the right chest tube by accident, CXR taken showed some interstitial changes and probable left lower lung consolidation. field sales specialist following. Added Levaquin. - wean off prednisone. - repeat CXR 01/27 and follow up with pulmonary. Pericardial effusion, tamponade/ Atrial fibrillation with RVR/ NSTEMI/ Dynamic LVOT obstruction - Emergency Pericardiocentesis drains -01/01. Cc. Cultures no growth. Removed drain 01/06, Followup limited Echo 01/07 EF 60-65%. Trivial small pericardial effusion present - Cardiac catheterization 12/01 revealed EF around 60%. Left main normal. RCA normal. LAD 70% ostial. Bare stent left circumflex 70%. - Resume ASA 162 mg daily, d/c rectal ASA/ Continue Plavix 75 mg daily - Continue amiodarone 200 mg by mouth every 12 hours. - Continue Metoprolol 25 mg every 6 hours with holding parameters - 2-D echo no veg, EF 50-55%. Mild MR, mild AR. Pseudo-outflow obstruction due to concentric hypertrophy and hyperdynamic ventricle - Continue Lasix to 20 g IV twice a day. KCL Effervescent 25 bid x2. - Holding home medications of losartan 100 mg, amlodipine 10 mg daily, normotensive. - Continue atorvastatin 40 by mouth daily for dyslipidemia. - Pericardial fluid cytology 01/01 - negative for malignancy Invasive adenocarcinoma of the esophagus/ Liver cirrhosis - Tolerating mechanical soft, thin liquids. Speech therapy has signed off. - Patient's intake improving. Discontinue TPN - Has biopsy proven invasive adenocarcinoma of esophagus - Status post EUS/esophageal stent placement 12/25 Dr. Tejeda. - IV Protonix twice a day continue. - Carafate 1 g by mouth daily per her GI - Surgery removed port - Patient declined PEG. Per surgery repeat calorie count. Tolerating supplements. Septic shock/ MSSA bacteremia/ Pseudomonas pneumonia - Rapid clinical improvement after [id number] was removed. remains off all pressors - Catheter tip culture blood culture and wound culture also positive for MSSA - Completed Rifampin, for synergy per ID (on po now), Completed Ancef, Levaquin. - Infectious disease Dr. Nassar. 2D Echo neg for endocarditis, Unable to do PAM due to esophageal - resumed on Levaquin per pulmonology. 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 Bell is following - Status post surgical resection for L parotid SCC at [facility] 10/01 - Hematology plans to give weekly Erbitux and XRT outpatient. - Transfuse as needed for hemoglobin less than 8 DM II Well controlled. - continue long lasting insulin and sliding scale, Stage IV Sacral, Coccyx ulcer, Wound care following. - continue Santyl DVT prop - No pharmacological prophylaxis secondary to hemoptysis. Will discuss with GI when we can resume prophylaxis. Patient has LE skin breakdown. Hold SCDs skin breakdown BLE. GI Prop - Pantoprazole 40 iv twice a day Discharge Planning Anticipate D/c to SNF in AM if CXR shows stability and cleared by pulmonary. Bebeto Day DO Jan 26, 2017 15:08
[2017-01-26] MEDS ORDERED: LORazepam 0.5 MG TAB PO ONE (15:15)
--- NOTE | 2017-01-26 19:06 | HHI.PR ---
Subjective Remarks alert no sob chest tube accidentally removed Objective Vital Signs Date Time Temp Pulse Resp B/P (MAP) Pulse Ox O2 Delivery O2 Flow Rate FiO2 01/26/17 16:16 97.4 89 20 93/52 (66) 98 01/26/17 16:00 Room Air 01/26/17 13:15 95 01/26/17 12:05 97.6 94 18 108/54 (72) 99 01/26/17 12:00 Room Air 01/26/17 09:00 Room Air 01/26/17 08:35 97.2 94 20 106/55 (72) 98 01/26/17 04:00 97.2 91 19 97/52 (67) 100 01/26/17 00:00 97.9 90 17 102/56 (71) 95 01/25/17 21:10 21 01/25/17 20:00 98.0 84 18 94/50 (65) 100 01/25/17 20:00 85 I/O 01/25/17 01/25/17 01/25/17 01/26/17 01/26/17 01/26/17 07:00 15:00 23:00 07:00 15:00 23:00 Intake Total 720 ml 600 ml Output Total 600 ml 700 ml 800 ml Balance 120 ml -700 ml -200 ml Intake Oral 720 ml 600 ml Output Urine Total 600 ml 700 ml 800 ml # Bowel Movements 0 1 Result Diagram: 01/26/17 0600 01/26/17 0600 Procedures Right axillary art line 12/02/16 Left subclavian central venous line 12/02/16 (Dr. Delarosa) intubation 12/02/16 and 01/01/17 PCI with bare metal stent to LCx by Dr. Krause on 11/30/16 port removal 12/02/16 Dr. Rich. EUS with esophageal stent placement, food bolus removal 12/25/16 Dr. Tejeda Right thoracentesis 12/30/16 (Dr. Harding) Pericardiocentesis and pericardial drain 01/01/17 (Dr. Bueno) Placement of Left #10 Yi pigtail catheter 01/03. Was dislodged 01/09. Placement of right #10 Yi pigtail catheter 01/06 Objective Remarks Laboratory Tests Test 01/23/17 06:35 Red Blood Count 2.97 MIL/MM3 (4.50-5.90) Hemoglobin 9.0 GM/DL (13.0-17.0) Hematocrit 26.5 % (39.0-51.0) Red Cell Distribution Width 19.4 % (11.6-17.2) Blood Urea Nitrogen 20 MG/DL (7-18) Creatinine 0.56 MG/DL (0.60-1.30) Random Glucose 115 MG/DL (74-106) Calcium Level 8.2 MG/DL (8.5-10.1) Sodium Level 131 MEQ/L (136-145) Chloride Level 95 MEQ/L (98-107) GENERAL: SKIN: Warm and dry. HEAD: Atraumatic. Normocephalic. EYES: Pupils equal and round. No scleral icterus. No injection or drainage. ENT: No nasal bleeding or discharge. Mucous membranes pink and moist. NECK: Trachea midline. No JVD. CARDIOVASCULAR: Regular rate and rhythm. RESPIRATORY: No accessory muscle use. Clear to auscultation. Breath sounds equal bilaterally. GASTROINTESTINAL: Abdomen soft, non-tender, nondistended. Hepatic and splenic margins not palpable. MUSCULOSKELETAL: Extremities without clubbing, cyanosis, or edema. No obvious deformities. NEUROLOGICAL: Awake and alert. No obvious cranial nerve deficits. Motor grossly within normal limits. Five out of 5 muscle strength in the arms and legs. Normal speech. PSYCHIATRIC: Appropriate mood and affect; insight and judgment normal. Assessment and Plan Assessment and Plan pleural effusion lung ca no distress plan F/U cxray post accidental chest tube removal Physician Attestation GENERAL: SKIN: Warm and dry. HEAD: Atraumatic. Normocephalic. EYES: Pupils equal and round. No scleral icterus. No injection or drainage. ENT: No nasal bleeding or discharge. Mucous membranes pink and moist. NECK: Trachea midline. No JVD. CARDIOVASCULAR: Regular rate and rhythm. RESPIRATORY: No accessory muscle use. Clear to auscultation. Breath sounds equal bilaterally. GASTROINTESTINAL: Abdomen soft, non-tender, nondistended. Hepatic and splenic margins not palpable. MUSCULOSKELETAL: Extremities without clubbing, cyanosis, or edema. No obvious deformities. NEUROLOGICAL: Awake and alert. No obvious cranial nerve deficits. Motor grossly within normal limits. Five out of 5 muscle strength in the arms and legs. Normal speech. PSYCHIATRIC: Appropriate mood and affect; insight and judgment normal. Rickie Damian MD Jan 26, 2017 19:06
[2017-01-26] MEDS: ATORVASTATIN 40 MG TAB PO SCH (20:16)
[2017-01-27] VITALS (9 sets, daily range): BP systolic 90–123; BP diastolic 49–59; PULSE 87–96; RESP 18–22; TEMP 97.2–98.5; O2SAT 93–98
[2017-01-27] MEDS: LEVOTHYROXINE SODIUM 50 MCG TAB PO SCH (05:57)
[2017-01-27] MEDS: SUCRALFATE 1 GM/10 ML CUP PO SCH ×4 (05:57→21:00)
[2017-01-27] MEDS: METOPROLOL TARTRATE 25 MG TAB PO SCH ×4 (05:58→23:50)
[2017-01-27] MEDS: ARTIFICIAL TEARS OPTH SOLN 15 ML BTL EACH EYE SCH ×3 (05:58→21:04)
[2017-01-27] MEDS: INSULIN ASPART SUPPLEMENTAL SCALE SQ SCH ×4 (06:02→21:03)
--- NOTE | 2017-01-27 06:32 | RADRPT ---
EXAM DATE/TIME: 01/27/2017 05:51 [facility] COMPARISON: CHEST SINGLE AP, January 22, 2017, 16:49. INDICATIONS : Short of breath. MEDICAL HISTORY : Hypertension. Hypercholesterolemia. CAD. Hepatitis C. SURGICAL HISTORY : Appendectomy. ENCOUNTER: Subsequent ACUITY: 2 months PAIN SCORE: 0/10 LOCATION: Bilateral chest FINDINGS: A single view of the chest demonstrates basilar airspace disease increased from January 22 especiall y on the right. Small effusions. No pneumothorax. Heart size upper limits normal. CONCLUSION: 1. Increase in right basilar airspace disease since January 22. Left PICC line in superior vena cava . Kervin Krause MD on January 27, 2017 at 6:30 Board Certified Radiologist. This report was verified electronically.
[2017-01-27] MEDS: DOCUSATE SODIUM 50 MG/SENNA 8.6 MG TAB PO SCH ×2 (09:00→21:00)
[2017-01-27] MEDS: FUROSEMIDE 20 MG/2 ML VIAL IV PUSH SCH ×2 (09:00→09:38)
[2017-01-27] MEDS: INSULIN DETEMIR 100 UNITS/ML VIAL SQ SCH ×2 (09:00→21:02)
[2017-01-27] MEDS: COLLAGENASE OINT 30 GM TUBE TOPICAL SCH (09:00)
[2017-01-27] MEDS: POLYETHYLENE GLYCOL 17 GM PKG PO SCH (09:00)
[2017-01-27] MEDS: SODIUM CHLORIDE 0.9% FLUSH 10 ML FLUSH IV FLUSH SCH ×3 (09:00→21:00)
[2017-01-27] MEDS: PANTOPRAZOLE SODIUM 40 MG VIAL IV PUSH SCH ×2 (09:34→21:04)
[2017-01-27] MEDS: predniSONE 5 MG TAB PO SCH (09:34)
[2017-01-27] MEDS: CLOPIDOGREL 75 MG TAB PO SCH (09:35)
[2017-01-27] MEDS: LEVOFLOXACIN 750 MG TAB PO SCH (09:36)
[2017-01-27] MEDS: MULTIVITAMIN TAB PO SCH (09:36)
[2017-01-27] MEDS: ASPIRIN EC 81 MG TABEC PO SCH (09:37)
[2017-01-27] MEDS: AMIODARONE 200 MG TAB PO SCH ×2 (09:43→21:00)
[2017-01-27] MEDS ORDERED: LORazepam 0.5 MG TAB PO ONE (12:45)
--- NOTE | 2017-01-27 12:49 | HHI.PR ---
Subjective Remarks The patient was complaining of increased chest tightness on the left side. He said it comes and goes but today was worse. He is looking forward to going home soon. He thinks he will do better at home. He says his legs are pretty swollen at this time. He said it's hard to keep them elevated. Discussed with nursing. Objective Vitals Vital Signs Date Time Temp Pulse Resp B/P (MAP) Pulse Ox O2 Delivery O2 Flow Rate FiO2 01/27/17 12:18 97.3 96 20 123/56 (78) 96 01/27/17 11:00 95 Nasal Cannula 3.00 01/27/17 09:09 97 21 01/27/17 08:18 97.2 91 19 96/53 (67) 98 01/27/17 08:00 97 Nasal Cannula 3.00 01/27/17 08:00 87 01/27/17 07:00 Room Air 01/27/17 04:00 Room Air 01/27/17 04:00 98.5 94 20 104/54 (71) 93 01/27/17 00:00 98.1 91 22 90/49 (63) 96 01/27/17 00:00 Room Air 01/26/17 20:10 92 01/26/17 20:00 Room Air 01/26/17 20:00 98.0 95 20 105/55 (72) 97 01/26/17 16:16 97.4 89 20 93/52 (66) 98 01/26/17 16:00 Room Air 01/26/17 13:15 95 I/O 01/26/17 01/26/17 01/26/17 01/27/17 01/27/17 01/27/17 07:00 15:00 23:00 07:00 15:00 23:00 Intake Total 600 ml Output Total 700 ml 800 ml 600 ml Balance -700 ml -200 ml -600 ml Intake Oral 600 ml Output Urine Total 700 ml 800 ml 600 ml # Bowel Movements 1 Result Diagram: 01/26/17 0600 01/26/17 0600 Objective Remarks GENERAL: Resting comfortably HEENT: NC, AT. CARDIOVASCULAR: Regular rate and rhythm w harsh systolic murmur. RESPIRATORY: Crackles at the right base. GASTROINTESTINAL: Abdomen soft, non-tender, nondistended. MUSCULOSKELETAL: 2-3+ LE edema. NEURO: awake, alert , answers questions PSYCH: Anxious. Procedures Right axillary art line 12/02/16 Left subclavian central venous line 12/02/16 (Dr. Delarosa) intubation 12/02/16 and 01/01/17 PCI with bare metal stent to LCx by Dr. Krause on 11/30/16 port removal 12/02/16 Dr. Rich. EUS with esophageal stent placement, food bolus removal 12/25/16 Dr. Tejeda Right thoracentesis 12/30/16 (Dr. Harding) Pericardiocentesis and pericardial drain 01/01/17 (Dr. Bueno) Placement of Left #10 Haitian pigtail catheter 01/03. Was dislodged 01/09. Placement of right #10 Haitian pigtail catheter 01/06 Medications and IVs Current Medications Medications (Trade) Dose Ordered Sig/Geovanny Route Start Time Stop Time Status Last Admin (NS Flush) 2 ml UNSCH PRN IV FLUSH 11/30/16 02:45 12/24/16 09:59 (NS Flush) 2 ml BID IV FLUSH 11/30/16 09:00 01/27/17 09:00 (Rere-Colace) 1 tab BID PO 11/30/16 09:00 01/26/17 20:16 (Milk Of Magnesia Liq) 30 ml Q12H PRN PO 11/30/16 02:45 (Senokot) 17.2 mg Q12H PRN PO 11/30/16 02:45 (Dulcolax Supp) 10 mg DAILY PRN RECTAL 11/30/16 02:45 Miscellaneous Information Patient in critical care unit? Ass... Q361D .XX 11/30/16 05:15 (Tylenol) 325 mg Q4H PRN PO 11/30/16 13:45 12/13/16 17:13 (Zofran Inj) 4 mg Q4H PRN IV 11/30/16 13:45 12/24/16 22:41 (NS Flush) 5 ml Q21D IV FLUSH 11/30/16 18:00 12/21/16 17:19 (Heparin Central Flush) 500 units Q21D IV FLUSH 11/30/16 18:00 11/30/16 18:04 (NS Flush) 5 ml UNSCH PRN IV FLUSH 11/30/16 18:00 (Heparin Central Flush) 250 units UNSCH PRN IV FLUSH 11/30/16 18:00 01/23/17 20:50 (Romazicon Inj) 0.2 mg Q1M PRN IV PUSH 12/01/16 13:00 (Tylenol 650 Mg/ 20 ml Liq) 650 mg Q6H PRN PO 12/01/16 17:30 12/02/16 01:07 (Miralax) 17 gm DAILY PO 12/04/16 09:00 01/26/17 08:41 (Theragran) 1 tab DAILY PO 12/05/16 09:00 01/27/17 09:36 (Lipitor) 40 mg HS PO 12/12/16 21:00 Future hold 01/26/17 20:16 (NS Flush) See Protocol DAILY IV FLUSH 12/13/16 09:00 01/27/17 09:00 (NS Flush) See Protocol UNSCH PRN IV FLUSH 12/12/16 17:00 (Heparin Central Flush) See Protocol DAILY IV FLUSH 12/13/16 09:00 01/27/17 09:48 (Heparin Central Flush) See Protocol UNSCH PRN IV FLUSH 12/12/16 17:00 (NS Flush) UNSCH PRN IV FLUSH 12/12/16 17:00 12/19/16 01:59 (Nitrostat Sl) 0.4 mg Q5M PRN SL 12/16/16 00:15 (Cardizem) 90 mg Q6H PO 12/18/16 23:00 Future Hold 12/25/16 12:14 (Lanoxin) 0.25 mg DAILY PO 12/22/16 09:00 Future Hold 12/25/16 08:06 (Carafate Liq) 1 gm ACHS PO 12/22/16 11:00 01/27/17 11:05 (Lopressor Inj) 5 mg Q1HR PRN IV PUSH 12/22/16 09:45 12/30/16 10:37 (Protonix Inj) 40 mg Q12H IV PUSH 12/22/16 10:00 01/27/17 09:34 (Lopressor) 25 mg Q6HR PO 12/22/16 13:00 01/27/17 05:58 (Duoneb Neb) 1 ampule Q2HR NEB PRN INH 12/25/16 21:00 01/15/17 15:37 (Plavix) 75 mg DAILY PO 12/29/16 09:00 01/27/17 09:35 (Ecotrin Ec) 162 mg DAILY PO 12/29/16 09:00 Future hold 01/27/17 09:37 (Tears Naturale Opth Soln) 1 drop Q8HR EACH EYE 01/04/17 14:00 01/27/17 05:58 (Levemir Inj) 30 units Q12HR SQ 01/06/17 21:00 01/27/17 09:00 (Cordarone) 200 mg Q12HR PO 01/07/17 10:00 01/27/17 09:43 (Synthroid) 50 mcg DAILY@0600 PO 01/11/17 06:00 01/27/17 05:57 (Percocet 10-325 Mg) 1 tab Q4H PRN PO 01/10/17 14:15 01/26/17 12:18 (Roxicodone) 5 mg Q4H PRN PO 01/10/17 14:15 01/22/17 17:31 (Restoril) 15 mg HS PRN PO 01/11/17 11:45 01/25/17 20:41 (D50w (Vial) Inj) 50 ml UNSCH PRN IV 01/11/17 12:15 (Glucagon Inj) 1 mg UNSCH PRN OTHER 01/11/17 12:15 (NovoLOG SUPPLEMENTAL SCALE) 1 ACHS SLIDING SCALE SQ 01/11/17 16:00 01/27/17 06:02 (Levaquin) 750 mg DAILY PO 01/24/17 09:00 01/27/17 09:36 (Santyl Oint) 1 applic DAILY TOPICAL 01/24/17 15:00 01/27/17 09:00 (Deltasone) 5 mg Q48H PO 01/27/17 09:00 02/02/17 08:59 01/27/17 09:34 (Ativan) 0.5 mg Q8H PRN PO 01/26/17 23:15 (Lasix) 40 mg BID@,18 PO 01/27/17 18:00 UNV A/P Problem List: (1) Intractable abdominal pain ICD Code: R10.9 - Unspecified abdominal pain Status: Acute (2) Esophageal carcinoma ICD Code: C15.9 - Malignant neoplasm of esophagus, unspecified Status: Acute (3) SCC (squamous cell carcinoma) ICD Code: C44.92 - Squamous cell carcinoma of skin, unspecified Status: Acute (4) Hypokalemia ICD Code: E87.6 - Hypokalemia Status: Acute (5) Lactic acidosis ICD Code: E87.2 - Acidosis Status: Acute (6) Renal insufficiency ICD Code: N28.9 - Disorder of kidney and ureter, unspecified Status: Acute (7) Elevated troponin ICD Code: R74.8 - Abnormal levels of other serum enzymes Status: Acute (8) DM (diabetes mellitus) ICD Code: E11.9 - Type 2 diabetes mellitus without complications Status: Acute (9) Tobacco abuse ICD Code: Z72.0 - Tobacco abuse Status: Acute (10) NSTEMI (non-ST elevated myocardial infarction) ICD Code: I21.4 - Non-ST elevation (NSTEMI) myocardial infarction Status: Chronic (11) Bacteremia due to Gram-positive bacteria ICD Code: R78.81 - Bacteremia Status: Acute (12) Encephalopathy, metabolic ICD Code: G93.41 - Metabolic encephalopathy Status: Acute Assessment and Plan Acute metabolic Encephalopathy Most likely secondary to Hypoxia, sepsis, Resolved. - Completed therapy with Thiamine for Possible alcohol withdrawal 12/05/16, improved. - Currently off all sedation. On Percocet 10 q4. Oxycodone additional 5 as needed for breakthrough. - Ativan started for anxiety. Will monitor mental status. Stable. Acute Hypoxemic Respiratory failure History of COPD, Tobacco abuse, Bilateral Pleural Effusions - Emergently intubated and placed on mechanical ventilation 12/02/16, extubated 12/03/16 - Re intubated 01/01/17 [facility] ventilation 16/550/1//35. Extubated 01/06 - Now on nasal cannula. - CT chest revealed bilateral pleural effusions. Thoracentesis -1200 cc 12/30. Placement of Left #10 Haitian pigtail catheter 01/03. Was dislodged 01/09. Placement of right #10 Haitian pigtail catheter 01/06. - Right pleural fluid Cytology negative for malignancy 01/06 and Pleural fluid cytology negative 12/30 - the patient removed the right chest tube by accident, CXR taken showed some interstitial changes and probable left lower lung consolidation. licensing specialist following. Added Levaquin. - wean off prednisone. - repeat CXR 01/27 and follow up with pulmonary. Pericardial effusion, tamponade/ Atrial fibrillation with RVR/ NSTEMI/ Dynamic LVOT obstruction - Emergency Pericardiocentesis drains -01/01. Cc. Cultures no growth. Removed drain 01/06, Followup limited Echo 01/07 EF 60-65%. Trivial small pericardial effusion present - Cardiac catheterization 12/01 revealed EF around 60%. Left main normal. RCA normal. LAD 70% ostial. Bare stent left circumflex 70%. - Resume ASA 162 mg daily, d/c rectal ASA/ Continue Plavix 75 mg daily - Continue amiodarone 200 mg by mouth every 12 hours. - Continue Metoprolol 25 mg every 6 hours with holding parameters - 2-D echo no veg, EF 50-55%. Mild MR, mild AR. Pseudo-outflow obstruction due to concentric hypertrophy and hyperdynamic ventricle - Continue Lasix. Switch to 40 mg PO BID. KCL Effervescent 25 bid x2. - Holding home medications of losartan 100 mg, amlodipine 10 mg daily, normotensive. - Continue atorvastatin 40 by mouth daily for dyslipidemia. - Pericardial fluid cytology 01/01 - negative for malignancy - repeat CXR 01/27 with worsening right sided airspace disease. Will follow up with pulmonology. Consider CT chest. Invasive adenocarcinoma of the esophagus/ Liver cirrhosis - Tolerating mechanical soft, thin liquids. Speech therapy has signed off. - Patient's intake improving. Discontinue TPN - Has biopsy proven invasive adenocarcinoma of esophagus - Status post EUS/esophageal stent placement 12/25 Dr. Tejeda. - IV Protonix twice a day continue. - Carafate 1 g by mouth daily per her GI - Surgery removed port - Patient declined PEG. Per surgery repeat calorie count. Tolerating supplements. Septic shock/ MSSA bacteremia/ Pseudomonas pneumonia - Rapid clinical improvement after [id number] was removed. remains off all pressors - Catheter tip culture blood culture and wound culture also positive for MSSA - Completed Rifampin, for synergy per ID (on po now), Completed Ancef, Levaquin. - Infectious disease Dr. Nassar. 2D Echo neg for endocarditis, Unable to do PAM due to esophageal - resumed on Levaquin per pulmonology. Chest tightness Likely s/t above. EKG without new changes. - trend trops. - treatment as above. 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 Bell is following - Status post surgical resection for L parotid SCC at [facility] 10/01 - Hematology plans to give weekly Erbitux and XRT outpatient. - Transfuse as needed for hemoglobin less than 8 DM II Well controlled. - continue long lasting insulin and sliding scale, Stage IV Sacral, Coccyx ulcer, Wound care following. - continue Santyl DVT prop - No pharmacological prophylaxis secondary to hemoptysis. Will discuss with GI when we can resume prophylaxis. Patient has LE skin breakdown. Hold SCDs skin breakdown BLE. GI Prop - Pantoprazole 40 iv twice a day Discharge Planning Anticipate D/c to SNF when cleared by pulmonary. Bebeto Day DO Jan 27, 2017 12:49
--- NOTE | 2017-01-27 13:46 | HHI.PR ---
Subjective Remarks 61 YOWM with COPD,DM,AF Had Pericardial effusion and Pericardiocentesis Mild SOB No Fever Up in chair. CXR stable Still has swelling legs Objective Vital Signs Vital Signs Date Time Temp Pulse Resp B/P (MAP) Pulse Ox O2 Delivery O2 Flow Rate FiO2 01/27/17 12:18 97.3 96 20 123/56 (78) 96 01/27/17 11:00 95 Nasal Cannula 3.00 01/27/17 09:09 97 21 01/27/17 08:18 97.2 91 19 96/53 (67) 98 01/27/17 08:00 97 Nasal Cannula 3.00 01/27/17 08:00 87 01/27/17 07:00 Room Air 01/27/17 04:00 Room Air 01/27/17 04:00 98.5 94 20 104/54 (71) 93 01/27/17 00:00 98.1 91 22 90/49 (63) 96 01/27/17 00:00 Room Air 01/26/17 20:10 92 01/26/17 20:00 Room Air 01/26/17 20:00 98.0 95 20 105/55 (72) 97 01/26/17 16:16 97.4 89 20 93/52 (66) 98 01/26/17 16:00 Room Air I/O 01/26/17 01/26/17 01/26/17 01/27/17 01/27/17 01/27/17 07:00 15:00 23:00 07:00 15:00 23:00 Intake Total 600 ml Output Total 700 ml 800 ml 600 ml Balance -700 ml -200 ml -600 ml Intake Oral 600 ml Output Urine Total 700 ml 800 ml 600 ml # Bowel Movements 1 Result Diagram: 01/26/17 0600 01/26/17 0600 Objective Remarks GENERAL: WBWN WM,NAD SKIN: Warm and dry. HEAD: Normocephalic. EYES: No scleral icterus. No injection or drainage. NECK: Supple, trachea midline. No JVD or lymphadenopathy. CARDIOVASCULAR: Regular rate and rhythm without murmurs, gallops, or rubs. RESPIRATORY: Breath sounds equal bilaterally. No accessory muscle use. GASTROINTESTINAL: Abdomen soft, non-tender, nondistended. MUSCULOSKELETAL: No cyanosis, or edema. BACK: Nontender without obvious deformity. No CVA tenderness. A/P Assessment and Plan Right Pl effusion, s/p Chest tube placement S/P Pericardiocentesis AF CAD HTN PLAN: Supplement 02 Aerosol nebs OOB in Chair DW pt and his Stable from Pulm standpoint DC plans underway Chace Luna MD Jan 27, 2017 13:46
[2017-01-27] MEDS: FUROSEMIDE 40 MG TAB PO SCH (18:41)
[2017-01-27] MEDS: TEMAZEPAM 15 MG CAP PO PRN (21:00)
[2017-01-27] MEDS: ATORVASTATIN 40 MG TAB PO SCH (21:00)
[2017-01-28] VITALS (9 sets, daily range): BP systolic 93–108; BP diastolic 46–58; PULSE 86–102; RESP 16–21; TEMP 97.3–97.9; O2SAT 93–100
[2017-01-28 05:57] LABS: HEMATOCRIT 24.7 % (39.0-51.0); MEAN CELL VOLUME 89.2 FL (80.0-100.0); MEAN CORPUSCULAR HEMOGLOBIN 29.6 PG (27.0-34.0); MEAN CORPUSCULAR HGB CONC 33.1 % (32.0-36.0); PLATELET COUNT 210 TH/MM3 (150-450); RED BLOOD COUNT 2.77 MIL/MM3 (4.50-5.90); RED CELL DISTRIBUTION WIDTH 19.6 % (11.6-17.2); REVIEW FLAG FINAL; WHITE BLOOD COUNT 7.7 TH/MM3 (4.0-11.0)
[2017-01-28] MEDS: METOPROLOL TARTRATE 25 MG TAB PO SCH ×4 (05:58→23:59)
[2017-01-28] MEDS: LEVOTHYROXINE SODIUM 50 MCG TAB PO SCH (05:58)
[2017-01-28] MEDS: SUCRALFATE 1 GM/10 ML CUP PO SCH ×4 (06:00→21:34)
[2017-01-28] MEDS: ARTIFICIAL TEARS OPTH SOLN 15 ML BTL EACH EYE SCH ×3 (06:00→21:36)
[2017-01-28] MEDS: INSULIN ASPART SUPPLEMENTAL SCALE SQ SCH ×4 (08:00→21:36)
[2017-01-28] MEDS: POLYETHYLENE GLYCOL 17 GM PKG PO SCH (08:30)
[2017-01-28] MEDS: INSULIN DETEMIR 100 UNITS/ML VIAL SQ SCH ×2 (08:32→21:36)
[2017-01-28] MEDS: PANTOPRAZOLE SODIUM 40 MG VIAL IV PUSH SCH (08:32)
[2017-01-28] MEDS: MULTIVITAMIN TAB PO SCH (08:33)
[2017-01-28] MEDS: LORazepam 0.5 MG TAB PO PRN ×2 (08:33→21:35)
[2017-01-28] MEDS: ASPIRIN EC 81 MG TABEC PO SCH (08:33)
[2017-01-28] MEDS: CLOPIDOGREL 75 MG TAB PO SCH (08:33)
[2017-01-28] MEDS: COLLAGENASE OINT 30 GM TUBE TOPICAL SCH (08:34)
[2017-01-28] MEDS: AMIODARONE 200 MG TAB PO SCH ×2 (08:34→21:35)
[2017-01-28] MEDS: DOCUSATE SODIUM 50 MG/SENNA 8.6 MG TAB PO SCH ×2 (08:34→21:34)
[2017-01-28] MEDS: LEVOFLOXACIN 750 MG TAB PO SCH (08:34)
[2017-01-28] MEDS: FUROSEMIDE 40 MG TAB PO SCH ×2 (08:34→17:55)
[2017-01-28] MEDS: SODIUM CHLORIDE 0.9% FLUSH 10 ML FLUSH IV FLUSH SCH ×3 (08:35→21:35)
--- NOTE | 2017-01-28 12:56 | PD.ONC.PN ---
Subjective Subjective Remarks Breathing easier today Anxious to go home Objective Data Date Time Temp Pulse Resp B/P (MAP) Pulse Ox O2 Delivery O2 Flow Rate FiO2 01/28/17 10:02 95 21 01/28/17 08:00 97.3 90 18 108/54 (72) 98 01/28/17 08:00 92 01/28/17 08:00 Room Air 01/28/17 04:00 Room Air 01/28/17 04:00 97.5 89 21 93/53 (66) 100 01/28/17 00:00 97.9 86 20 104/58 (73) 95 01/28/17 00:00 Nasal Cannula 2.00 01/27/17 20:04 90 01/27/17 20:00 Nasal Cannula 2.00 01/27/17 20:00 98.0 93 18 120/54 (76) 95 01/27/17 16:21 97.8 89 20 101/59 (73) 97 01/27/17 15:00 Nasal Cannula 3.00 01/28/17 01/28/17 01/28/17 06:59 14:59 22:59 Intake Total 680 ml Output Total 850 ml Balance -170 ml Result Diagram: 01/28/17 0540 01/26/17 0600 Laboratory Results Laboratory Tests Test 01/27/17 20:57 01/28/17 05:40 Troponin I 0.07 NG/ML White Blood Count 7.7 TH/MM3 Red Blood Count 2.77 MIL/MM3 Hemoglobin 8.2 GM/DL Hematocrit 24.7 % Mean Corpuscular Volume 89.2 FL Mean Corpuscular Hemoglobin 29.6 PG Mean Corpuscular Hemoglobin Concent 33.1 % Red Cell Distribution Width 19.6 % Platelet Count 210 TH/MM3 Mean Platelet Volume 7.7 FL Magnesium Level 1.9 MG/DL Administered Medications Medications (Trade) Dose Ordered Sig/Geovanny Route PRN Reason Start Time Stop Time Status Last Admin Dose Admin Sodium Chloride (NS Flush) 2 ml UNSCH PRN IV FLUSH FLUSH AFTER USING IV ACCESS 11/30/16 02:45 12/24/16 09:59 Sodium Chloride (NS Flush) 2 ml BID IV FLUSH 11/30/16 09:00 01/28/17 08:35 Senna/Docusate Sodium (Rere-Colace) 1 tab BID PO 11/30/16 09:00 01/27/17 21:00 Acetaminophen (Tylenol) 325 mg Q4H PRN PO PAIN SCALE 1 TO 2 11/30/16 13:45 12/13/16 17:13 Ondansetron HCl (Zofran Inj) 4 mg Q4H PRN IV NAUSEA 11/30/16 13:45 12/24/16 22:41 Sodium Chloride (NS Flush) 5 ml Q21D IV FLUSH 11/30/16 18:00 12/21/16 17:19 Heparin Sodium (Porcine) (Heparin Central Flush) 500 units Q21D IV FLUSH 11/30/16 18:00 11/30/16 18:04 Heparin Sodium (Porcine) (Heparin Central Flush) 250 units UNSCH PRN IV FLUSH FLUSH AFTER USING IV ACCESS 11/30/16 18:00 01/23/17 20:50 Acetaminophen (Tylenol 650 Mg/ 20 ml Liq) 650 mg Q6H PRN PO FEVER 12/01/16 17:30 12/02/16 01:07 Polyethylene Glycol (Miralax) 17 gm DAILY PO 12/04/16 09:00 01/26/17 08:41 Multivitamins (Theragran) 1 tab DAILY PO 12/05/16 09:00 01/28/17 08:33 Atorvastatin Calcium (Lipitor) 40 mg HS PO 12/12/16 21:00 Future hold 01/27/17 21:00 Sodium Chloride (NS Flush) See Protocol DAILY IV FLUSH 12/13/16 09:00 01/28/17 08:35 Heparin Sodium (Porcine) (Heparin Central Flush) See Protocol DAILY IV FLUSH 12/13/16 09:00 01/28/17 08:31 Sodium Chloride (NS Flush) UNSCH PRN IV FLUSH SEE PROTOCOL TABLE 12/12/16 17:00 12/19/16 01:59 Diltiazem HCl (Cardizem) 90 mg Q6H PO 12/18/16 23:00 Future Hold 12/25/16 12:14 Digoxin (Lanoxin) 0.25 mg DAILY PO 12/22/16 09:00 Future Hold 12/25/16 08:06 Sucralfate (Carafate Liq) 1 gm ACHS PO 12/22/16 11:00 01/28/17 12:24 Metoprolol Tartrate (Lopressor Inj) 5 mg Q1HR PRN IV PUSH RAPID HEART RATE 12/22/16 09:45 12/30/16 10:37 Pantoprazole Sodium (Protonix Inj) 40 mg Q12H IV PUSH 12/22/16 10:00 01/28/17 08:32 Metoprolol Tartrate (Lopressor) 25 mg Q6HR PO 12/22/16 13:00 01/27/17 23:50 Albuterol/ Ipratropium (Duoneb Neb) 1 ampule Q2HR NEB PRN INH WHEEZING 12/25/16 21:00 01/15/17 15:37 Clopidogrel Bisulfate (Plavix) 75 mg DAILY PO 12/29/16 09:00 01/28/17 08:33 Aspirin (Ecotrin Ec) 162 mg DAILY PO 12/29/16 09:00 Future hold 01/28/17 08:33 Artificial Tears (Tears Naturale Opth Soln) 1 drop Q8HR EACH EYE 01/04/17 14:00 01/28/17 12:24 Insulin Detemir (Levemir Inj) 30 units Q12HR SQ 01/06/17 21:00 01/28/17 08:32 Amiodarone HCl (Cordarone) 200 mg Q12HR PO 01/07/17 10:00 01/28/17 08:34 Levothyroxine Sodium (Synthroid) 50 mcg DAILY@0600 PO 01/11/17 06:00 01/28/17 05:58 Oxycodone/ Acetaminophen (Percocet 10-325 Mg) 1 tab Q4H PRN PO PAIN 3-10 01/10/17 14:15 01/26/17 12:18 Oxycodone HCl (Roxicodone) 5 mg Q4H PRN PO BREAKTHROUGH PAIN 01/10/17 14:15 01/28/17 03:39 Temazepam (Restoril) 15 mg HS PRN PO SLEEP 01/11/17 11:45 01/27/17 21:00 Insulin Aspart (NovoLOG SUPPLEMENTAL SCALE) 1 ACHS SLIDING SCALE SQ 01/11/17 16:00 01/27/17 21:03 Levofloxacin (Levaquin) 750 mg DAILY PO 01/24/17 09:00 01/28/17 08:34 Collagenase (Santyl Oint) 1 applic DAILY TOPICAL 01/24/17 15:00 01/28/17 08:34 Prednisone (Deltasone) 5 mg Q48H PO 01/27/17 09:00 02/02/17 08:59 01/27/17 09:34 Lorazepam (Ativan) 0.5 mg Q8H PRN PO anxiety 01/26/17 23:15 01/28/17 08:33 Furosemide (Lasix) 40 mg BID@,18 PO 01/27/17 18:00 01/28/17 08:34 Objective Remarks GENERAL: Middle aged male, sitting up in chair next to bed in [facility]. SKIN: Warm and dry. HEAD: Normocephalic. EYES: No injection or drainage. NECK: Supple, trachea midline. CARDIOVASCULAR: +S1/S2 RESPIRATORY: Clear anteriorly. Breathing unlabored. GASTROINTESTINAL: Abdomen soft, non-tender, nondistended. EXTREMITIES: No cyanosis NEUROLOGICAL: Awake and alert. Normal speech. Moving all extremities. Assessment/Plan Problem List: (1) Esophageal adenocarcinoma ICD Codes: C15.9 - Malignant neoplasm of esophagus, unspecified Status: Acute Plan: --EUS with esophageal stent placement on 12/25 --++hemoptysis --we plan to give weekly Erbitux and XRT outpatient. --patient had OP EGD with biopsy, pathology showed adenocarcinoma. --EGD/Colonoscopy, 11/20/16--showed long stricture in the mid esophagus and distal esophagus, multiple biopsies were performed Pathology revealed invasive adenocarcinoma- distal esophagus --XRT simulation done 12/19. (2) SCC (squamous cell carcinoma) ICD Codes: C44.92 - Squamous cell carcinoma of skin, unspecified Status: Acute Plan: --has a head and neck, lung malignancy which was locally advanced. --received definitive treatment with surgery. Post surgery he had positive margins and some poor risk features and he was about to get concurrent chemotherapy and radiation and adjuvantly to achieve local control of the disease --PET scan to stage his disease prior to treatment showed an esophageal mass (3) Normocytic anemia ICD Codes: D64.9 - Anemia, unspecified Status: Acute Plan: --hgb stable --transfuse packed red blood cells if his hemoglobin drops below 8.5 --s/p iron infusion (4) Afib ICD Codes: I48.91 - Unspecified atrial fibrillation Status: Acute Plan: --cardiology following. --s/p chest tube placement --on Plavix --on ASA --Amiodarone (5) NSTEMI (non-ST elevated myocardial infarction) ICD Codes: I21.4 - Non-ST elevation (NSTEMI) myocardial infarction Status: Chronic Plan: --had elevated troponin and ST-segment changes consistent with acute SC. 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 Also with a new diagnosis of early stage gastric cancer Plan 1. Discussed with RN; placement to SNF delayed due to power outages at [facility]. 2. OK for discharge from oncology standpoint. Pt to followup in clinic once discharged. Problem Qualifiers (1) Afib: Shey Flores Jan 28, 2017 12:56
[2017-01-28 13:09] LABS: BICARBONATE 28.1 MEQ/L (21.0-32.0); POTASSIUM 4.6 MEQ/L (3.5-5.1)
--- NOTE | 2017-01-28 13:48 | HHI.PR ---
Subjective Remarks The patient said that he can eat much because he likes salt in his food. He said he had a bowel movement yesterday. He said he was breathing well. He had no acute complaints. Discussed with case management. Objective Vitals Vital Signs Date Time Temp Pulse Resp B/P (MAP) Pulse Ox O2 Delivery O2 Flow Rate FiO2 01/28/17 12:00 97.5 92 18 103/55 (71) 93 01/28/17 10:02 95 21 01/28/17 08:00 97.3 90 18 108/54 (72) 98 01/28/17 08:00 92 01/28/17 08:00 Room Air 01/28/17 04:00 Room Air 01/28/17 04:00 97.5 89 21 93/53 (66) 100 01/28/17 00:00 97.9 86 20 104/58 (73) 95 01/28/17 00:00 Nasal Cannula 2.00 01/27/17 20:04 90 01/27/17 20:00 Nasal Cannula 2.00 01/27/17 20:00 98.0 93 18 120/54 (76) 95 01/27/17 16:21 97.8 89 20 101/59 (73) 97 01/27/17 15:00 Nasal Cannula 3.00 I/O 01/27/17 01/27/17 01/27/17 01/28/17 01/28/17 01/28/17 07:00 15:00 23:00 07:00 15:00 23:00 Intake Total 720 ml 680 ml Output Total 600 ml 800 ml 850 ml Balance -600 ml -80 ml -170 ml Intake Oral 720 ml 680 ml Output Urine Total 600 ml 800 ml 850 ml # Bowel Movements 1 0 Result Diagram: 01/28/17 0540 01/27/172056 Objective Remarks GENERAL: Resting comfortably HEENT: NC, AT. CARDIOVASCULAR: Regular rate and rhythm w harsh systolic murmur. RESPIRATORY: Crackles at the right base. GASTROINTESTINAL: Abdomen soft, non-tender, nondistended. MUSCULOSKELETAL: 2-3+ LE edema. NEURO: awake, alert , answers questions PSYCH: Mood and affect appropriate. Procedures Right axillary art line 12/02/16 Left subclavian central venous line 12/02/16 (Dr. Delarosa) intubation 12/02/16 and 01/01/17 PCI with bare metal stent to LCx by Dr. Krause on 11/30/16 port removal 12/02/16 Dr. Rich. EUS with esophageal stent placement, food bolus removal 12/25/16 Dr. Tejeda Right thoracentesis 12/30/16 (Dr. Harding) Pericardiocentesis and pericardial drain 01/01/17 (Dr. Bueno) Placement of Left #10 Syrian pigtail catheter 01/03. Was dislodged 01/09. Placement of right #10 Syrian pigtail catheter 01/06 Medications and IVs Current Medications Medications (Trade) Dose Ordered Sig/Geovanny Route Start Time Stop Time Status Last Admin (NS Flush) 2 ml UNSCH PRN IV FLUSH 11/30/16 02:45 12/24/16 09:59 (NS Flush) 2 ml BID IV FLUSH 11/30/16 09:00 01/28/17 08:35 (Rere-Colace) 1 tab BID PO 11/30/16 09:00 01/27/17 21:00 (Milk Of Magnesia Liq) 30 ml Q12H PRN PO 11/30/16 02:45 (Senokot) 17.2 mg Q12H PRN PO 11/30/16 02:45 (Dulcolax Supp) 10 mg DAILY PRN RECTAL 11/30/16 02:45 Miscellaneous Information Patient in critical care unit? Ass... Q361D .XX 11/30/16 05:15 (Tylenol) 325 mg Q4H PRN PO 11/30/16 13:45 12/13/16 17:13 (Zofran Inj) 4 mg Q4H PRN IV 11/30/16 13:45 12/24/16 22:41 (NS Flush) 5 ml Q21D IV FLUSH 11/30/16 18:00 12/21/16 17:19 (Heparin Central Flush) 500 units Q21D IV FLUSH 11/30/16 18:00 11/30/16 18:04 (NS Flush) 5 ml UNSCH PRN IV FLUSH 11/30/16 18:00 (Heparin Central Flush) 250 units UNSCH PRN IV FLUSH 11/30/16 18:00 01/23/17 20:50 (Romazicon Inj) 0.2 mg Q1M PRN IV PUSH 12/01/16 13:00 (Tylenol 650 Mg/ 20 ml Liq) 650 mg Q6H PRN PO 12/01/16 17:30 12/02/16 01:07 (Miralax) 17 gm DAILY PO 12/04/16 09:00 01/26/17 08:41 (Theragran) 1 tab DAILY PO 12/05/16 09:00 01/28/17 08:33 (Lipitor) 40 mg HS PO 12/12/16 21:00 Future hold 01/27/17 21:00 (NS Flush) See Protocol DAILY IV FLUSH 12/13/16 09:00 01/28/17 08:35 (NS Flush) See Protocol UNSCH PRN IV FLUSH 12/12/16 17:00 (Heparin Central Flush) See Protocol DAILY IV FLUSH 12/13/16 09:00 01/28/17 08:31 (Heparin Central Flush) See Protocol UNSCH PRN IV FLUSH 12/12/16 17:00 (NS Flush) UNSCH PRN IV FLUSH 12/12/16 17:00 12/19/16 01:59 (Nitrostat Sl) 0.4 mg Q5M PRN SL 12/16/16 00:15 (Cardizem) 90 mg Q6H PO 12/18/16 23:00 Future Hold 12/25/16 12:14 (Lanoxin) 0.25 mg DAILY PO 12/22/16 09:00 Future Hold 12/25/16 08:06 (Carafate Liq) 1 gm ACHS PO 12/22/16 11:00 01/28/17 12:24 (Lopressor Inj) 5 mg Q1HR PRN IV PUSH 12/22/16 09:45 12/30/16 10:37 (Lopressor) 25 mg Q6HR PO 12/22/16 13:00 01/27/17 23:50 (Duoneb Neb) 1 ampule Q2HR NEB PRN INH 12/25/16 21:00 01/15/17 15:37 (Plavix) 75 mg DAILY PO 12/29/16 09:00 01/28/17 08:33 (Ecotrin Ec) 162 mg DAILY PO 12/29/16 09:00 Future hold 01/28/17 08:33 (Tears Naturale Opth Soln) 1 drop Q8HR EACH EYE 01/04/17 14:00 01/28/17 12:24 (Levemir Inj) 30 units Q12HR SQ 01/06/17 21:00 01/28/17 08:32 (Cordarone) 200 mg Q12HR PO 01/07/17 10:00 01/28/17 08:34 (Synthroid) 50 mcg DAILY@0600 PO 01/11/17 06:00 01/28/17 05:58 (Percocet 10-325 Mg) 1 tab Q4H PRN PO 01/10/17 14:15 01/26/17 12:18 (Roxicodone) 5 mg Q4H PRN PO 01/10/17 14:15 01/28/17 03:39 (Restoril) 15 mg HS PRN PO 01/11/17 11:45 01/27/17 21:00 (D50w (Vial) Inj) 50 ml UNSCH PRN IV 01/11/17 12:15 (Glucagon Inj) 1 mg UNSCH PRN OTHER 01/11/17 12:15 (NovoLOG SUPPLEMENTAL SCALE) 1 ACHS SLIDING SCALE SQ 01/11/17 16:00 01/27/17 21:03 (Levaquin) 750 mg DAILY PO 01/24/17 09:00 01/28/17 08:34 (Santyl Oint) 1 applic DAILY TOPICAL 01/24/17 15:00 01/28/17 08:34 (Deltasone) 5 mg Q48H PO 01/27/17 09:00 02/02/17 08:59 01/27/17 09:34 (Ativan) 0.5 mg Q8H PRN PO 01/26/17 23:15 01/28/17 08:33 (Lasix) 40 mg BID@09,18 PO 01/27/17 18:00 01/28/17 08:34 (Lasix Inj) 20 mg ONCE ONCE IV PUSH 01/28/17 13:45 01/28/17 13:46 UNV (Protonix) 40 mg Q12HR PO 01/28/17 21:00 UNV A/P Problem List: (1) Intractable abdominal pain ICD Code: R10.9 - Unspecified abdominal pain Status: Acute (2) Esophageal carcinoma ICD Code: C15.9 - Malignant neoplasm of esophagus, unspecified Status: Acute (3) SCC (squamous cell carcinoma) ICD Code: C44.92 - Squamous cell carcinoma of skin, unspecified Status: Acute (4) Hypokalemia ICD Code: E87.6 - Hypokalemia Status: Acute (5) Lactic acidosis ICD Code: E87.2 - Acidosis Status: Acute (6) Renal insufficiency ICD Code: N28.9 - Disorder of kidney and ureter, unspecified Status: Acute (7) Elevated troponin ICD Code: R74.8 - Abnormal levels of other serum enzymes Status: Acute (8) DM (diabetes mellitus) ICD Code: E11.9 - Type 2 diabetes mellitus without complications Status: Acute (9) Tobacco abuse ICD Code: Z72.0 - Tobacco abuse Status: Acute (10) NSTEMI (non-ST elevated myocardial infarction) ICD Code: I21.4 - Non-ST elevation (NSTEMI) myocardial infarction Status: Chronic (11) Bacteremia due to Gram-positive bacteria ICD Code: R78.81 - Bacteremia Status: Acute (12) Encephalopathy, metabolic ICD Code: G93.41 - Metabolic encephalopathy Status: Acute Assessment and Plan Acute metabolic Encephalopathy Most likely secondary to Hypoxia, sepsis, Resolved. - Completed therapy with Thiamine for Possible alcohol withdrawal 12/05/16, improved. - Currently off all sedation. On Percocet 10 q4. Oxycodone additional 5 as needed for breakthrough. - Ativan started for anxiety. Will monitor mental status. Stable. Acute Hypoxemic Respiratory failure History of COPD, Tobacco abuse, Bilateral Pleural Effusions - Emergently intubated and placed on mechanical ventilation 12/02/16, extubated 12/03/16 - Re intubated 01/01/17 [facility] ventilation 16/550//35. Extubated 01/06 - Now on nasal cannula. - CT chest revealed bilateral pleural effusions. Thoracentesis -1200 cc 12/30. Placement of Left #10 Syrian pigtail catheter 01/03. Was dislodged 01/09. Placement of right #10 Syrian pigtail catheter 01/06. - Right pleural fluid Cytology negative for malignancy 01/06 and Pleural fluid cytology negative 12/30 - the patient removed the right chest tube by accident, CXR taken showed some interstitial changes and probable left lower lung consolidation. claims support specialist following. Added Levaquin. - wean off prednisone. - repeat CXR 01/27 with worsening right base disease. Continue by mouth Levaquin. Continue diuresis. Pericardial effusion, tamponade/ Atrial fibrillation with RVR/ NSTEMI/ Dynamic LVOT obstruction - Emergency Pericardiocentesis drains -01/01. Cc. Cultures no growth. Removed drain 01/06, Followup limited Echo 01/07 EF 60-65%. Trivial small pericardial effusion present - Cardiac catheterization 12/01 revealed EF around 60%. Left main normal. RCA normal. LAD 70% ostial. Bare stent left circumflex 70%. - Resume ASA 162 mg daily, d/c rectal ASA/ Continue Plavix 75 mg daily - Continue amiodarone 200 mg by mouth every 12 hours. - Continue Metoprolol 25 mg every 6 hours with holding parameters - 2-D echo no veg, EF 50-55%. Mild MR, mild AR. Pseudo-outflow obstruction due to concentric hypertrophy and hyperdynamic ventricle - Continue Lasix. Switch to 40 mg PO BID. KCL Effervescent 25 bid x2. - Holding home medications of losartan 100 mg, amlodipine 10 mg daily, normotensive. - Continue atorvastatin 40 by mouth daily for dyslipidemia. - Pericardial fluid cytology 01/01 - negative for malignancy - repeat CXR 01/27 with worsening right sided airspace disease. Continue by mouth Levaquin. Continue diuresis. - fluid restriction. Invasive adenocarcinoma of the esophagus/ Liver cirrhosis - Tolerating mechanical soft, thin liquids. Speech therapy has signed off. - Patient's intake improving. Discontinue TPN - Has biopsy proven invasive adenocarcinoma of esophagus - Status post EUS/esophageal stent placement 12/25 Dr. Tejeda. - IV Protonix twice a day continue. - Carafate 1 g by mouth daily per her GI - Surgery removed port - Patient declined PEG. Per surgery repeat calorie count. Tolerating supplements. Septic shock/ MSSA bacteremia/ Pseudomonas pneumonia - Rapid clinical improvement after [id number] was removed. remains off all pressors - Catheter tip culture blood culture and wound culture also positive for MSSA - Completed Rifampin, for synergy per ID (on po now), Completed Ancef, Levaquin. - Infectious disease Dr. Nassar. 2D Echo neg for endocarditis, Unable to do PAM due to esophageal - resumed on Levaquin per pulmonology. Chest tightness Likely s/t above. EKG without new changes. Trops are coming down from previous values. - treatment as above. 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 Bell is following - Status post surgical resection for L parotid SCC at [facility] 10/01 - Hematology plans to give weekly Erbitux and XRT outpatient. - Transfuse as needed for hemoglobin less than 8 DM II Well controlled. - continue long lasting insulin and sliding scale, Stage IV Sacral, Coccyx ulcer, Wound care following. - continue Santyl PPx: Heparin Discharge Planning Anticipate D/c to SNF when cleared by pulmonary. Bebeto Day DO Jan 28, 2017 13:48
[2017-01-28] MEDS ORDERED: FUROSEMIDE 20 MG/2 ML VIAL IV PUSH ONE (15:00)
--- NOTE | 2017-01-28 19:03 | HHI.PR ---
Subjective Remarks 61 YOWM with COPD,DM,AF Had Pericardial effusion and Pericardiocentesis Mild SOB No Fever Up in chair. Still has swelling legs Objective Vital Signs Vital Signs Date Time Temp Pulse Resp B/P (MAP) Pulse Ox O2 Delivery O2 Flow Rate FiO2 01/28/17 16:04 97.7 92 16 93/46 (62) 98 01/28/17 12:00 97.5 92 18 103/55 (71) 93 01/28/17 10:02 95 21 01/28/17 08:00 97.3 90 18 108/54 (72) 98 01/28/17 08:00 92 01/28/17 08:00 Room Air 01/28/17 04:00 Room Air 01/28/17 04:00 97.5 89 21 93/53 (66) 100 01/28/17 00:00 97.9 86 20 104/58 (73) 95 01/28/17 00:00 Nasal Cannula 2.00 01/27/17 20:04 90 01/27/17 20:00 Nasal Cannula 2.00 01/27/17 20:00 98.0 93 18 120/54 (76) 95 I/O 01/27/17 01/27/17 01/27/17 01/28/17 01/28/17 01/28/17 07:00 15:00 23:00 07:00 15:00 23:00 Intake Total 720 ml 680 ml Output Total 600 ml 800 ml 850 ml Balance -600 ml -80 ml -170 ml Intake Oral 720 ml 680 ml Output Urine Total 600 ml 800 ml 850 ml # Bowel Movements 1 0 Result Diagram: 01/28/1740 01/27/172056 Objective Remarks GENERAL: WBWN WM,NAD SKIN: Warm and dry. HEAD: Normocephalic. EYES: No scleral icterus. No injection or drainage. NECK: Supple, trachea midline. No JVD or lymphadenopathy. CARDIOVASCULAR: Regular rate and rhythm without murmurs, gallops, or rubs. RESPIRATORY: Breath sounds equal bilaterally. No accessory muscle use. GASTROINTESTINAL: Abdomen soft, non-tender, nondistended. MUSCULOSKELETAL: No cyanosis, or edema. BACK: Nontender without obvious deformity. No CVA tenderness. A/P Assessment and Plan Right Pl effusion, s/p Chest tube placement S/P Pericardiocentesis AF CAD HTN PLAN: Supplement 02 Aerosol nebs OOB in Chair DW pt and his Stable from Pulm standpoint Chace Luna MD Jan 28, 2017 19:03
[2017-01-28] MEDS: HEPARIN SODIUM - SQ 10,000 UNITS/ML VIAL SQ SCH (21:34)
[2017-01-28] MEDS: PANTOPRAZOLE SOD 40 MG DELAYED RELEASE TAB PO SCH (21:35)
[2017-01-28] MEDS: ATORVASTATIN 40 MG TAB PO SCH (21:35)
--- NOTE | 2017-01-28 21:57 | EKG ---
Date Performed: 01/27/2017 Time Performed: 11:24:41 PTAGE: 61 years EKG: Sinus rhythm POSSIBLE LEFT ATRIAL ENLARGEMENT BORDERLINE LEFT AXIS DEVIATION ST DEVIATION AND MODERATE T-WAVE ABN ORMALITY, CONSIDER LATERAL ISCHEMIA ABNORMAL ECG PREVIOUS TRACING : 12/25/2016 20.39 Compared to the previous tracing rate slower DOCTOR: Nicole Cardona Interpretating Date/Time 01/28/2017 21:57:18
[2017-01-29] VITALS (8 sets, daily range): BP systolic 91–118; BP diastolic 50–59; PULSE 90–102; RESP 18–20; TEMP 97.3–98.3; O2SAT 95–100
[2017-01-29] MEDS: METOPROLOL TARTRATE 25 MG TAB PO SCH ×3 (06:00→16:53)
[2017-01-29] MEDS: LEVOTHYROXINE SODIUM 50 MCG TAB PO SCH (06:15)
[2017-01-29] MEDS: ARTIFICIAL TEARS OPTH SOLN 15 ML BTL EACH EYE SCH ×3 (06:16→20:52)
[2017-01-29 06:42] LABS: HEMATOCRIT 25.3 % (39.0-51.0); MEAN CELL VOLUME 90.1 FL (80.0-100.0); MEAN CORPUSCULAR HEMOGLOBIN 29.5 PG (27.0-34.0); MEAN CORPUSCULAR HGB CONC 32.8 % (32.0-36.0); PLATELET COUNT 198 TH/MM3 (150-450); RED CELL DISTRIBUTION WIDTH 19.4 % (11.6-17.2); REVIEW FLAG FINAL; WHITE BLOOD COUNT 7.3 TH/MM3 (4.0-11.0)
[2017-01-29 06:53] LABS: BICARBONATE 27.4 MEQ/L (21.0-32.0); POTASSIUM 4.7 MEQ/L (3.5-5.1)
[2017-01-29] MEDS: POLYETHYLENE GLYCOL 17 GM PKG PO SCH (08:22)
[2017-01-29] MEDS: SUCRALFATE 1 GM/10 ML CUP PO SCH ×4 (08:22→20:51)
[2017-01-29] MEDS: HEPARIN SODIUM - SQ 10,000 UNITS/ML VIAL SQ SCH ×2 (08:24→20:49)
[2017-01-29] MEDS: INSULIN DETEMIR 100 UNITS/ML VIAL SQ SCH ×2 (08:24→20:51)
[2017-01-29] MEDS: LEVOFLOXACIN 750 MG TAB PO SCH (08:24)
[2017-01-29] MEDS: INSULIN ASPART SUPPLEMENTAL SCALE SQ SCH ×4 (08:24→20:51)
[2017-01-29] MEDS: MULTIVITAMIN TAB PO SCH (08:24)
[2017-01-29] MEDS: DOCUSATE SODIUM 50 MG/SENNA 8.6 MG TAB PO SCH ×2 (08:25→20:49)
[2017-01-29] MEDS: PANTOPRAZOLE SOD 40 MG DELAYED RELEASE TAB PO SCH ×2 (08:25→20:51)
[2017-01-29] MEDS: predniSONE 5 MG TAB PO SCH (08:25)
[2017-01-29] MEDS: CLOPIDOGREL 75 MG TAB PO SCH (08:25)
[2017-01-29] MEDS: ASPIRIN EC 81 MG TABEC PO SCH (08:25)
[2017-01-29] MEDS: FUROSEMIDE 40 MG TAB PO SCH ×2 (08:25→16:54)
[2017-01-29] MEDS: AMIODARONE 200 MG TAB PO SCH ×2 (08:27→20:50)
[2017-01-29] MEDS: SODIUM CHLORIDE 0.9% FLUSH 10 ML FLUSH IV FLUSH SCH ×3 (08:27→20:51)
[2017-01-29] MEDS: COLLAGENASE OINT 30 GM TUBE TOPICAL SCH (08:28)
[2017-01-29] MEDS ORDERED: IPRASOL INH (12:58)
[2017-01-29] MEDS ORDERED: REST15CA PO (12:58)
[2017-01-29] MEDS ORDERED: PLAV75TA29 PO (12:58)
[2017-01-29] MEDS ORDERED: ASPI-99 PO (12:58)
[2017-01-29] MEDS ORDERED: LORA-392 PO (12:58)
[2017-01-29] MEDS ORDERED: SUCR1S PO (12:58)
[2017-01-29] MEDS ORDERED: PANT40TA3 PO (12:58)
[2017-01-29] MEDS ORDERED: PRED5TAB PO (12:58)
[2017-01-29] MEDS ORDERED: POLY17S PO (12:58)
[2017-01-29] MEDS ORDERED: FURO40TA PO (12:58)
[2017-01-29] MEDS ORDERED: POTA-163 PO (12:58)
[2017-01-29] MEDS ORDERED: METO25TA3 PO (12:58)
[2017-01-29] MEDS ORDERED: AMIO200T PO (12:58)
[2017-01-29] MEDS ORDERED: DILT90TA PO (12:58)
[2017-01-29] MEDS ORDERED: COLL30T TOPICAL (13:03)
--- NOTE | 2017-01-29 13:15 | HHI.DS ---
Discharge Summary Admission Date Nov 30, 2016 at 02:20 Discharge Date: Jan 29, 2017 Admitting Diagnosis elevated trop, dysphagia, GE carcinoma (1) Intractable abdominal pain ICD Code: R10.9 - Unspecified abdominal pain Status: Acute (2) Esophageal carcinoma ICD Code: C15.9 - Malignant neoplasm of esophagus, unspecified Status: Acute (3) SCC (squamous cell carcinoma) ICD Code: C44.92 - Squamous cell carcinoma of skin, unspecified Status: Acute (4) Hypokalemia ICD Code: E87.6 - Hypokalemia Status: Acute (5) Lactic acidosis ICD Code: E87.2 - Acidosis Status: Acute (6) Renal insufficiency ICD Code: N28.9 - Disorder of kidney and ureter, unspecified Status: Acute (7) Elevated troponin ICD Code: R74.8 - Abnormal levels of other serum enzymes Status: Acute (8) DM (diabetes mellitus) ICD Code: E11.9 - Type 2 diabetes mellitus without complications Status: Acute (9) Tobacco abuse ICD Code: Z72.0 - Tobacco abuse Status: Acute (10) NSTEMI (non-ST elevated myocardial infarction) ICD Code: I21.4 - Non-ST elevation (NSTEMI) myocardial infarction Status: Chronic (11) Bacteremia due to Gram-positive bacteria ICD Code: R78.81 - Bacteremia Status: Acute (12) Encephalopathy, metabolic ICD Code: G93.41 - Metabolic encephalopathy Status: Acute Procedures Right axillary art line 12/02/16 Left subclavian central venous line 12/02/16 (Dr. Delarosa) intubation 12/02/16 and 01/01/17 PCI with bare metal stent to LCx by Dr. Krause on 11/30/16 port removal 12/02/16 Dr. Rich. EUS with esophageal stent placement, food bolus removal 12/25/16 Dr. Tejeda Right thoracentesis 12/30/16 (Dr. Harding) Pericardiocentesis and pericardial drain 01/01/17 (Dr. Bueno) Placement of Left #10 Finnish pigtail catheter 01/03. Was dislodged 01/09. Placement of right #10 Finnish pigtail catheter 01/06 Brief History - From Admission This is a 61-year-old male with a PMH of HTN, Hyperlipidemia, CAD, DM, Squamous Cell CA of Parotid Gland and Esophageal Mass who was brought to the ER by EMS with complaints of abdominal pain x3 wks in addition to difficulty taking PO. Pt significantly poor historian, unable to tell me which physicians he follows w / or what his plan of care is regarding underlying CA. Believes he is supposed to start Chemo/Radiation but is unsure when, doesn't recall next follow up appointment. Per review of records, pt evaluated by Dr. 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 Roberson. Also underwent PET CT w/ evidence of hypermetabolic esophageal mass and referral to GI for EGD/EUS. Per patient, he' s had progressive difficulty swallowing x3 wks w/ worsening abdominal pain. Unable to swallow solids at this time, liquids ok. Denies fever, chills, diarrhea, chest pain or cough. On EMS arrival, pt noted to be hypotensive w/ BP 80's, s/p IVF w/ improvement in BP, Temp 101. On arrival, BP 96 or 52, HR 90 , O2 sat 93% on RA, Afebrile. WBC 11.6. Platelets 106, previously 100 on . K+ 2.7. Creatinine 1.64, previously 0.58 on 08/29/13. Lactic Acid 3.5. Trop 3.12. EKG w/ no acute ischemia. U/a negative. CT Abd/Pelvis w/ markedly abnormal appearance distal esophagus consistent with history of esophageal CA. CTA Pulm negative for PE. CBC/BMP: 01/29/17 0615 01/29/17 0615 Significant Findings Laboratory Tests Test 01/27/17 12:00 01/27/17 20:57 01/28/17 05:40 01/29/17 06:15 Troponin I 0.09 NG/ML (0.02-0.05) 0.07 NG/ML (0.02-0.05) Blood Urea Nitrogen 24 MG/DL (7-18) 25 MG/DL (7-18) Random Glucose 136 MG/DL (74-106) 171 MG/DL (74-106) Sodium Level 128 MEQ/L (136-145) 129 MEQ/L (136-145) Chloride Level 92 MEQ/L (98-107) 93 MEQ/L (98-107) Red Blood Count 2.77 MIL/MM3 (4.50-5.90) 2.80 MIL/MM3 (4.50-5.90) Hemoglobin 8.2 GM/DL (13.0-17.0) 8.3 GM/DL (13.0-17.0) Hematocrit 24.7 % (39.0-51.0) 25.3 % (39.0-51.0) Red Cell Distribution Width 19.6 % (11.6-17.2) 19.4 % (11.6-17.2) Calcium Level 8.3 MG/DL (8.5-10.1) Estimat Glomerular Filtration Rate 81 ML/MIN (>89) PE at Discharge GENERAL: Resting comfortably HEENT: NC, AT. CARDIOVASCULAR: Regular rate and rhythm w harsh systolic murmur. RESPIRATORY: Crackles at the right base. GASTROINTESTINAL: Abdomen soft, non-tender, nondistended. MUSCULOSKELETAL: 2-3+ LE edema. NEURO: awake, alert , answers questions PSYCH: Mood and affect appropriate. 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 He was hypotensive, febrile up to 101 and received IV fluid resuscitation with improvement in his blood pressure. EKG showed ST-T wave changes, and troponin was elevated and peaked at 17.1. The patient has been evaluated by cardiology. For NSTEMI patient underwent PCI with bare metal stent to LCx by Dr. Krause on 11/30/16. The patient had a CT of the abdomen and pelvis on admission which showed marked soft tissue thickening in the distal esophagus concerning for esophageal cancer. The patient was also noted to have liver cirrhosis and mild splenomegaly. Patient has a history of alcohol intake but according to the girlfriend has not had alcoholic drinks for several months. CTA no evidence of pulmonary embolism or pneumonia. Critical care was consulted today for altered mentation, persistent fever, MSSA bacteremia and worsening sepsis. Apparently patient was agitated overnight requiring restraints. He also sustained a fall when he tried to climb out of the bed. CT of the head was negative except for a possible artifact left temporal region. An MRI which was done today came back negative. On my evaluation the ICU patient was very lethargic and tachypneic breathing approximately 35-40. ABG showed respiratory alkalosis. His altered mentation is most likely secondary to severe sepsis, alcohol withdrawal seems less likely. Blood cultures 08/19 growing MSSA, lactic acid 3,6. 12/25: Today underwent EGD with esophageal stent placement. significant bleeding from distal esophagus. GI and anesthesia felt patient should remain intubated for airway protection. In addition, patient persistently hypotensive requiring vasopressors, phenylephrine at 100 mcg/min, and in a flutter RVR on diltiazem drip. On my evaluation, patient was becoming more unstable. Adenosine 6mg iv x 1 was given which confirmed the rhythm as a flutter, but did not convert patient. give that patient was not anticoagulated, risk/benefit of electrical cardioversion at that time was in favor of conservative measures. patient bolused with amiodarone and placed on amiodarone drip, along with aggressive electrolyte replacement. Of note, patient also has new documented diagnosis of dynamic LVOT obstruction due to his LV hypertrophy and hyperdynamic cardiac function. Critical care medicine re-consulted to evaluate and manage his respiratory failure and cardiac dysrhythmias. 12/26: No more bleeding. Will work to extubate and start liquids, continue oral meds, especially beta gutierrez. 12/29: Reconsulted due to A. fib with RVR. Currently on 5 L simple mask. On amiodarone and Cardizem drips. Looks like some pulmonary edema will be actively diuresed. 12/30: Remains in A. fib with RVR. Currently on 10 L simple mask. Continues on amiodarone drip at 0.5 mg per minute and Cardizem drip at 20 mg an hour. Despite diuresis, increasing oxygen requirements. 12/31: Good response to diuresis. Weight still up about 10 kg. Dense infiltrate right chest, increasing FiO2 requirements. 08/17: Continued respiratory failure. FiO2 70% in tight BiPAP with sats 88%. Labored respirations and poor peripheral perfusion. Will need left effusion and pericardium tapped. I predict problems with hypotension if we use sedation - will start neosynephrine then induce. I have discussed the risks of pericardiocentesis and thoracentesis in detail with the patient, especially increased arrhythmia risk, possibly fatal. 01/02: Resting comfortable in bed. FiO2 40%. Arousable and follows commands. Status post pericardiocentesis yesterday. 20 cc past 24 hours. 01/03: Tmax 99.8. FiO2 down to 35%. Remains on Oziel-Synephrine at 70 g per minute. Currently normal sinus rhythm. Will attempt thoracentesis left side today permission obtainable with possible attempt at extubation soon. Initiating TPN for nutrition. 01/04: Resting comfortable in bed. Currently afebrile. #10 Finnish pigtail catheter placed left pleural effusion yesterday. -210 cc overnight. No bowel movement 5 days. Relistor, and enema provided today. Nurse states that that patient possible seizure. CT head/EEG ordered for today. 01/05: Remains intubated sedated. L pigtail with 1.5 L output since yesterday. EEG normal- no sz. Ct head negative. Cytology from Pericardial fluid pending. Will await cytology prior to deciding on CTS consult for pericardial window 01/06: On minimal sedation. Remains on Amiodarone, Cardizem gtt. On oziel- synephrine to keep MAP >65. Pericardial drain with only minimal out put-will remove drain today. Bedside echo today. Additional Lasix and 1 dose of Diamox ordered for fluid overload 01/07: Extubated yesterday, tolerating reasonably well. good O2 sats on 4L NC. UO 5L in 24 hours, Aftab CT with 2.5 L in 24 hours. Afib rate . Will switch to PO Amiodarone. Swallow eval today. Limited 2D Echo. Pericardial drain removed yesterday 01/07. 01/08: Breathing with acceptable comfort after extubation about 40 hours ago. Pericardial drain out. Serous drainage persists right chest tube. Pericardial fluid negative for malignant cells despite bloody content. 01/09: Up in chair, frail. Left chest tube accidentally removed/dislodged. CXR OK, infiltrates persist. US legs no DVT. 01/10 On 3 L nasal cannula. R chest tube with 520 mL output. Nurse states he is getting stronger with getting up to chair but not always cooperative and concerned for pulling R CT out. Drinking some ensure but overall by mouth intake limited per RN. Remains on TPN. 01/11 On 1.5 to 2 L nasal cannula. Right chest tube output decreasing, was 220 last 24 hours. Calorie count ongoing. Although intake has been very poor last couple days, he had increased intake today (eggs, cereal, 3 glucerna shakes this morning). We'll reduce TPN in half and may be able to discontinue tomorrow. Says he feels less groggy today with pain medication changes that were made yesterday, but can't sleep well at night due to pain at sacral decub. Pt update on day of discharge The patient was sitting in a chair. He wanted to leave the hospital. He said that he was feeling well. He had no acute complaints. Discussed with case management. The pt was unable to be discharged 01/29 because of insurance issues. He remained in the hospital an additional night and was discharged . His PICC line was removed. Discussed with nursing. Hospital Course Acute hypoxemic respiratory failure History of COPD. Emergently intubated and placed on mechanical ventilation and extubated 12/03/16. He was Reintubated 01/01/17 and extubated 01/06. CT chest revealed bilateral pleural effusions. Thoracentesis on 12/30 with -1200 cc removed. Placement of Left #10 Finnish pigtail catheter 01/03. Was dislodged . Placement of right #10 Finnish pigtail catheter 01/06. Right pleural fluid cytology negative for malignancy 01/06 and pleural fluid cytology negative 12/30 as well. The patient removed the right chest tube by accident, CXR taken showed some interstitial changes and probable left lower lung consolidation. Pulmonary was following the pt and added Levaquin. He was weaned off of prednisone. Repeat CXR 01/27 with worsening right base disease. He completed a course of by mouth Levaquin. He was also continued with diuresis. He will follow up with pulmonology as an outpt. Pericardial effusion/ tamponade/ Atrial fibrillation with RVR/ NSTEMI/ Dynamic LVOT obstruction Emergency pericardiocentesis performed 01/01. Cultures with no growth. Removed drain 01/06. Followup limited Echo 01/07 EF 60-65%; Trivial small pericardial effusion present. Cardiac catheterization 12/01 revealed EF around 60%; Left main normal; RCA normal; LAD 70% ostial; Bare stent left circumflex 70%. He was resumed on ASA 162 mg daily and continued on Plavix 75 mg daily. He was continued on amiodarone 200 mg by mouth every 12 hours, metoprolol 25 mg every 6 hours and diltiazem 90 mg every 6 hours. Repeat 2-D echo no veg, EF 50-55%; Mild MR; mild AR; Pseudo-outflow obstruction due to concentric hypertrophy and hyperdynamic ventricle. He was continued on Lasix. Switched to 40 mg PO BID. Holding home medications of losartan 100 mg and amlodipine 10 mg daily as blood pressure has been low. We continued atorvastatin 40 by mouth daily for dyslipidemia. Pericardial fluid cytology 01/01 - negative for malignancy. He was placed on a fluid restriction. He will follow up with cardiology as an outpt. Invasive adenocarcinoma of the esophagus/ Liver cirrhosis Status post EUS/esophageal stent placement 12/25. Patient declined PEG. Tolerating mechanical soft, thin liquids. Speech therapy has signed off. Patient's intake improving. Discontinued TPN Has biopsy proven invasive adenocarcinoma of esophagus. Continue Carafate and PPI. He will follow up with oncology as an outpt. Septic shock/ MSSA bacteremia/ Pseudomonas pneumonia Rapid clinical improvement after Uskygc-n-[id number] was removed. Remains off all pressors at this time. Catheter tip culture, blood culture and wound culture also positive for MSSA. Completed Rifampin, Ancef and Levaquin per ID. Acute metabolic encephalopathy Completed therapy with thiamine for possible alcohol withdrawal. Resolved. 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 Status post surgical resection for L parotid SCC at [facility] 10/01. Hematology plans to give weekly Erbitux and XRT outpatient. DM II He will resume metformin and Lantus upon discharge. He will also benefit from sliding scale insulin. Stage IV Sacral, coccyx ulcer Wound care following. He will continue Santyl Pt Condition on Discharge: Stable Discharge Disposition: Discharge to SNF Discharge Time: > 30 minutes Discharge Instructions DIET: Follow Instructions for: Heart Healthy Diet, Diabetic Diet Speech Therapy-Diet Recommends: Mechanical Soft Additional Diet Instructions: 1500 ml fluid restriction recommended Activities you can perform: Weight Bearing as Melyssa Follow up Referrals: Cardiology - 1 Week Gastroenterology - 1 Week Oncology - 1 Week with Brant Bell MD PCP Follow-up - 1 Week Pulmonology - 1 Week with Chace Luna MD SNF/SNF/ with [facility] New Orders: BASIC METABOLIC PROF - 2-3 Days New Medications: Potassium Chloride ER (Potassium Chloride ER) 20 Meq Tab 20 MEQ PO BID for Electrolyte Replacement, #30 TAB 0 Refills Amiodarone (Amiodarone) 200 Mg Tab 200 MG PO Q12HR for Heart, #[address] (Adult Aspirin EC Low Strength) 81 Mg Tabec 162 MG PO DAILY for Heart, #60 TAB Clopidogrel (Plavix) 75 Mg Tab 75 MG PO DAILY for Heart, #30 TAB Collagenase (Santyl) 250 Unit/Gram Oin 1 APPLIC TOPICAL DAILY for Wound care for 30 Days, TUBE Diltiazem (Diltiazem) 90 Mg Tab 90 MG PO Q6H for Heart, #120 TAB Furosemide (Furosemide) 40 Mg Tab 40 MG PO BID@09,18 for Edema, #60 TAB Ipratropium-Albuterol Neb (Duoneb) 0.5-2.5 Mg/3 Ml Neb 1 AMPULE INH Q2HR NEB PRN for WHEEZING, #1 NEBULE Lorazepam (Ativan) 0.5 Mg Tab 0.5 MG PO Q8H PRN for anxiety, #12 TAB Metoprolol Tartrate (Metoprolol Tartrate) 25 Mg Tab 25 MG PO Q8HR for Heart, #90 TAB Oxycodone (Oxycodone) 5 Mg Tab 5 MG PO Q4H PRN for PAIN SCALE 3 TO 5, #10 TAB Pantoprazole (Pantoprazole) 40 Mg Tab 40 MG PO Q12HR for Stomach, #60 TAB Polyethylene Glycol 3350 Powder (Polyethylene Glycol 3350 Powder) 17 Gram Pow 17 GM PO DAILY for Constipation, #30 PKT Prednisone (Prednisone) 5 Mg Tab 5 MG PO Q48H for Breathing, #2 TAB Sucralfate Liq (Sucralfate Liq) 1 Gram/10 Ml Bea 1 GM PO ACHS for Stomach for 30 Days, ML Temazepam (Restoril) 15 Mg Cap 15 MG PO HS PRN for SLEEP, #7 CAP Continued Medications: Atorvastatin (Atorvastatin) 40 Mg Tab 40 MG PO HS for Cholesterol Management, #30 TAB 0 Refills Cholecalciferol (Vitamin D3) 1,000 Unit Tab 1000 UNITS PO DAILY for Nutritional Supplement, #1 BOTTLE 0 Refills Cyanocobalamin (B-12) 1,000 Mcg Subl 1000 MCG PO DAILY for Nutritional Supplement, TAB.SL 0 Refills Insulin Glargine Inj (Lantus Inj) 1,000 Unit/10 Ml Vial 40 UNITS SQ HS for Blood Sugar Management, VIAL 0 Refills Levothyroxine (Levothyroxine) 50 Mcg Tab 50 MCG PO DAILY for Thyroid, #30 TAB 0 Refills Metformin (Metformin) 1,000 Mg Tab 1000 MG PO BIDPC for Blood Sugar Management, #60 TAB 0 Refills With meals [Eye Vitamin] () 1 TAB PO DAILY Discontinued Medications: Amlodipine (Amlodipine) 10 Mg Tab 10 MG PO DAILY for Blood Pressure Management, #30 TAB 0 Refills Glipizide (Glipizide) 10 Mg Tab 20 MG PO BIDAC for Blood Sugar Management, #60 TAB 0 Refills Take 30 minutes before a meal Losartan (Losartan) 100 Mg Tab 100 MG PO DAILY for Blood Pressure Management, #30 TAB 0 Refills Omeprazole (Omeprazole) 20 Mg Tab 20 MG PO DAILY, #30 TAB 0 Refills Tramadol (Tramadol) 50 Mg Tab 50 MG PO Q8H PRN for PAIN, TAB 0 Refills [atenolo/[id number]] () 1 TAB PO DAILY, #31 TAB 6 Refills Bebeto Day DO Jan 29, 2017 13:15
--- NOTE | 2017-01-29 14:03 | HHI.DCPOC ---
Discharge Care Plan Diagnosis: (1) NSTEMI (non-ST elevated myocardial infarction) (2) Physical deconditioning (3) Atrial fibrillation with RVR (4) Respiratory failure (5) Edema (6) Dysphagia (7) Diabetes mellitus (8) Esophageal mass (9) Esophageal adenocarcinoma (10) Encephalopathy, metabolic (11) SCC (squamous cell carcinoma) Goals to Promote Your Health * To prevent worsening of your condition and complications * To maintain your health at the optimal level Directions to Meet Your Goals Take your medications as prescribed Follow your dietary instruction Follow activity as directed Keep your appointments as scheduled Take your immunizations and boosters as scheduled If your symptoms worsen call your PCP, if no PCP go to Urgent Care Center or Emergency Room Smoking is Dangerous to Your Health. Avoid second hand smoke Call the 24-hour hour crisis hotline for domestic abuse at Bebeto Day DO Jan 29, 2017 14:03
[2017-01-29] MEDS: LORazepam 0.5 MG TAB PO PRN (15:40)
--- NOTE | 2017-01-29 16:29 | HHI.PR ---
Subjective Remarks 61 YOWM with COPD,DM,AF Had Pericardial effusion and Pericardiocentesis. Mild SOB No Fever Up in chair. Still has swelling legs Ambulates in the room Objective Vital Signs Vital Signs Date Time Temp Pulse Resp B/P (MAP) Pulse Ox O2 Delivery O2 Flow Rate FiO2 01/29/17 12:00 97.3 100 18 105/53 (70) 96 01/29/17 08:10 98 21 01/29/17 08:00 97.5 92 18 97/59 (72) 98 01/29/17 08:00 95 01/29/17 08:00 Room Air 01/29/17 04:00 Room Air 01/29/17 04:00 97.6 90 18 91/55 (67) 99 94/58 (70) 01/29/17 00:00 Room Air 01/29/17 00:00 97.5 102 18 106/51 (69) 95 01/28/17 20:04 100 01/28/17 20:00 Room Air 01/28/17 20:00 97.6 102 16 103/51 (68) 97 01/28/17 19:44 97 I/O 01/28/17 01/28/17 01/28/17 01/29/17 01/29/17 01/29/17 07:00 15:00 23:00 07:00 15:00 23:00 Intake Total 680 ml 420 ml 480 ml Output Total 850 ml 300 ml Balance -170 ml 420 ml 180 ml Intake Oral 680 ml 420 ml 480 ml Output Urine Total 850 ml 300 ml # Voids 3 # Bowel Movements 0 0 0 Result Diagram: 01/29/1761401/29/17614 Objective Remarks GENERAL: WBWN WM,NAD SKIN: Warm and dry. HEAD: Normocephalic. EYES: No scleral icterus. No injection or drainage. NECK: Supple, trachea midline. No JVD or lymphadenopathy. CARDIOVASCULAR: Regular rate and rhythm without murmurs, gallops, or rubs. RESPIRATORY: Breath sounds equal bilaterally. No accessory muscle use. GASTROINTESTINAL: Abdomen soft, non-tender, nondistended. MUSCULOSKELETAL: No cyanosis, or edema. BACK: Nontender without obvious deformity. No CVA tenderness. A/P Assessment and Plan Right Pl effusion, s/p Chest tube placement S/P Pericardiocentesis AF CAD HTN PLAN: Supplement 02 Aerosol nebs OOB in Chair DW pt and his Stable from Pulm standpoint DC plans underway for Chace Crook MD Jan 29, 2017 16:29
[2017-01-29] MEDS: ATORVASTATIN 40 MG TAB PO SCH (20:50)
[2017-01-29] MEDS: TEMAZEPAM 15 MG CAP PO PRN (20:52)
[2017-01-30] VITALS: BP 112/51; PULSE 94; RESP 20; TEMP 97.4; O2SAT 98
[2017-01-30] MEDS: LORazepam 0.5 MG TAB PO PRN ×2 (00:50→08:53)
[2017-01-30] MEDS: METOPROLOL TARTRATE 25 MG TAB PO SCH ×3 (00:50→12:20)
[2017-01-30 04:00] VITALS: BP_SYST 112; BP_SYST 115; BP_DIAS 51; BP_DIAS 60; PULSE 90; PULSE 94; RESP 20; TEMP 97.4; TEMP 98.2; O2SAT 94; O2SAT 95
[2017-01-30] MEDS: oxyCODONE/ACETAMINOPHEN 10 MG/325 MG TAB PO PRN ×2 (04:22→08:58)
[2017-01-30] MEDS: ARTIFICIAL TEARS OPTH SOLN 15 ML BTL EACH EYE SCH (04:50)
[2017-01-30] MEDS: LEVOTHYROXINE SODIUM 50 MCG TAB PO SCH (04:50)
[2017-01-30 08:00] VITALS: BP 95/53; PULSE 92; RESP 18; TEMP 97.2; O2SAT 97
[2017-01-30] MEDS: SUCRALFATE 1 GM/10 ML CUP PO SCH (08:49)
[2017-01-30] MEDS: MULTIVITAMIN TAB PO SCH (08:50)
[2017-01-30] MEDS: HEPARIN SODIUM - SQ 10,000 UNITS/ML VIAL SQ SCH (08:50)
[2017-01-30] MEDS: LEVOFLOXACIN 750 MG TAB PO SCH (08:50)
[2017-01-30] MEDS: FUROSEMIDE 40 MG TAB PO SCH (08:50)
[2017-01-30] MEDS: PANTOPRAZOLE SOD 40 MG DELAYED RELEASE TAB PO SCH (08:50)
[2017-01-30] MEDS: CLOPIDOGREL 75 MG TAB PO SCH (08:50)
[2017-01-30] MEDS: AMIODARONE 200 MG TAB PO SCH (08:51)
[2017-01-30] MEDS: INSULIN ASPART SUPPLEMENTAL SCALE SQ SCH (08:51)
[2017-01-30] MEDS: SODIUM CHLORIDE 0.9% FLUSH 10 ML FLUSH IV FLUSH SCH ×2 (08:51)
[2017-01-30] MEDS: ASPIRIN EC 81 MG TABEC PO SCH (08:51)
[2017-01-30] MEDS: POLYETHYLENE GLYCOL 17 GM PKG PO SCH (08:52)
[2017-01-30] MEDS: DOCUSATE SODIUM 50 MG/SENNA 8.6 MG TAB PO SCH (08:52)
[2017-01-30] MEDS: INSULIN DETEMIR 100 UNITS/ML VIAL SQ SCH (08:52)
[2017-01-30] MEDS: COLLAGENASE OINT 30 GM TUBE TOPICAL SCH (08:53)
[2017-01-30 09:02] VITALS: PULSE 93
--- NOTE | 2017-01-30 09:14 | HHI.PR ---
Subjective Remarks Note for encounter date 01/29/17 The patient was sitting in a chair. He wanted to leave the hospital. He said that he was feeling well. He had no acute complaints. Discussed with case management. Objective Vitals Vital Signs Date Time Temp Pulse Resp B/P (MAP) Pulse Ox O2 Delivery O2 Flow Rate FiO2 01/30/17 08:00 97.2 92 18 95/53 (67) 97 01/30/17 04:00 98.2 90 20 115/60 (78) 95 01/30/17 04:00 Nasal Cannula 2.00 01/30/17 00:00 Nasal Cannula 2.00 01/30/17 00:00 97.4 94 20 112/51 (71) 98 01/29/17 20:58 98 Nasal Cannula 2.00 01/29/17 20:00 Room Air 01/29/17 20:00 98.3 91 20 96/50 (65) 99 01/29/17 20:00 93 01/29/17 16:00 97.6 96 18 118/53 (74) 100 01/29/17 12:00 97.3 100 18 105/53 (70) 96 I/O 01/29/17 01/29/17 01/29/17 01/30/17 01/30/17 01/30/17 07:00 15:00 23:00 07:00 15:00 23:00 Intake Total 480 ml 720 ml 120 ml Output Total 300 ml 375 ml Balance 180 ml 720 ml -255 ml Intake Oral 480 ml 720 ml 120 ml Output Urine Total 300 ml 375 ml # Voids 2 # Bowel Movements 0 1 1 Result Diagram: 01/29/1761401/29/1715 Imaging Last Impressions Chest X-Ray 01/27/17 06 Signed Impressions: Service Date/Time: Friday, January 27, 2017 05:51 - CONCLUSION: 1. Increase in right basilar airspace disease since January 22. Left PICC line in superior vena cava. Kervin Krause MD Lower Extremity Ultrasound 01/09/17 0000 Signed Impressions: Service Date/Time: Monday, January 09, 2017 13:01 - CONCLUSION: No DVT is identified within the left lower extremity. Washington Marroquin MD Abdomen X-Ray 01/07/17 Signed Impressions: Service Date/Time: Saturday, January 07, 2017 11:56 - CONCLUSION: Visualized portions of the lower chest demonstrate a presumed esophageal stent. Erik Simon MD Head CT 01/04/17 0000 Signed Impressions: Service Date/Time: Thursday, January 05, 2017 03:41 - CONCLUSION: 1. No acute intracranial abnormalities. Fluid in the mastoid air cells characteristic of mastoiditis. Kervin Krause MD CT Angiography 12/31/16 0000 Signed Impressions: Service Date/Time: Saturday, December 31, 2016 01:00 - CONCLUSION: 1. Study is negative for pulmonary embolism. 2. Pericardial effusion, diffuse patchy consolidation in both lungs, collapse left lower lobe, bilateral pleural effusions, esophageal stent, similar to yesterday's CT thorax. Kulwant Gupta MD Thoracentesis 12/30/16 0000 Signed Impressions: Service Date/Time: Friday, December 30, 2016 15:34 - CONCLUSION: Uncomplicated CT-guided thoracentesis. Kiran Harding MD Chest CT 12/29/16 0000 Signed Impressions: Service Date/Time: Friday, December 30, 2016 10:56 - CONCLUSION: 1. Moderate bilateral pleural effusions. 2. Areas of consolidation in the upper lobes bilaterally and in the right middle and right lower lobe. There is some combination of consolidation and atelectasis seen in the left lower lobe. Underlying diffuse processes should be considered including edema. 3. Esophageal stent in place. There is increased density within the stent which could be from fluid or soft tissue. 4. Non-specific mildly prominent lymph nodes in the mediastinum. 5. Moderate pericardial effusion. 6. Possible 3rd non-displaced right rib fracture. Washington Chou MD GI Procedure 12/25/16 0000 Signed Impressions: Service Date/Time: December 19:33 - CONCLUSION: Spot film as above. Everett Pollock MD FACR Barium Swallow X-Ray 12/20/16 0000 Signed Impressions: Service Date/Time: Tuesday, December 20, 2016 13:15 - CONCLUSION: 1. The distal half of the esophagus demonstrates irregular luminal narrowing consistent with the patient's history of esophageal adenocarcinoma. 2. Mild dilatation of the esophagus immediately proximal to the esophageal mass. However, there are no signs of obstruction. 3. Small hiatal hernia. Washington Marroquin MD Abdomen MRI 12/17/16 0000 Signed Impressions: Service Date/Time: Saturday, December 17, 2016 13:59 - CONCLUSION: 1. No acute finding is identified to explain the abdominal pain. 2. Stable thickening of the distal esophagus. There is a single mildly enlarged left gastric lymph node measuring 12 x 10 mm. 3. Moderate sized bilateral pleural effusions, left larger than right, with associated compressive atelectasis. Washington Marroquin MD Brain MRI 12/01/16 0000 Signed Impressions: Service Date/Time: Thursday, December 01, 2016 12:07 - CONCLUSION: Normal examination. Barrett Rodriguez MD Abdomen/Pelvis CT 11/29/16 [id number] Signed Impressions: Service Date/Time: Wednesday, November 30, 2016 01:35 - CONCLUSION: 1. Markedly abnormal appearance of the distal esophagus consistent with the history of esophageal carcinoma. 2. Atherosclerotic calcifications of the aorta and iliac vessels. 3. Cirrhotic appearance to the liver with a mildly nodular contour present. Erik Simon MD Objective Remarks GENERAL: Resting comfortably HEENT: NC, AT. CARDIOVASCULAR: Regular rate and rhythm w harsh systolic murmur. RESPIRATORY: Crackles at the right base. GASTROINTESTINAL: Abdomen soft, non-tender, nondistended. MUSCULOSKELETAL: 2-3+ LE edema. NEURO: awake, alert , answers questions PSYCH: Mood and affect appropriate. Procedures Right axillary art line 12/02/16 Left subclavian central venous line 12/02/16 (Dr. Delarosa) intubation 12/02/16 and 01/01/17 PCI with bare metal stent to LCx by Dr. Krause on 11/30/16 port removal 12/02/16 Dr. Rich. EUS with esophageal stent placement, food bolus removal 12/25/16 Dr. Tejeda Right thoracentesis 12/30/16 (Dr. Harding) Pericardiocentesis and pericardial drain 01/01/17 (Dr. Bueno) Placement of Left #10 [place] pigtail catheter 01/03. Was dislodged 01/09. Placement of right #10 [place] pigtail catheter 01/06 Medications and IVs Current Medications Medications (Trade) Dose Ordered Sig/Geovanny Route Start Time Stop Time Status Last Admin (NS Flush) 2 ml UNSCH PRN IV FLUSH 11/30/16 02:45 12/24/16 09:59 (NS Flush) 2 ml BID IV FLUSH 11/30/16 09:00 01/30/17 08:51 (Rere-Colace) 1 tab BID PO 11/30/16 09:00 01/29/17 08:25 (Milk Of Magnesia Liq) 30 ml Q12H PRN PO 11/30/16 02:45 (Senokot) 17.2 mg Q12H PRN PO 11/30/16 02:45 (Dulcolax Supp) 10 mg DAILY PRN RECTAL 11/30/16 02:45 Miscellaneous Information Patient in critical care unit? Ass... [id number] .XX 11/30/16 05:15 (Tylenol) 325 mg Q4H PRN PO 11/30/16 13:45 12/13/16 17:13 (Zofran Inj) 4 mg Q4H PRN IV 11/30/16 13:45 12/24/16 22:41 (NS Flush) 5 ml Q21D IV FLUSH 11/30/16 18:00 12/21/16 17:19 (Heparin Central Flush) 500 units Q21D IV FLUSH 11/30/16 18:00 11/30/16 18:04 (NS Flush) 5 ml UNSCH PRN IV FLUSH 11/30/16 18:00 (Heparin Central Flush) 250 units UNSCH PRN IV FLUSH 11/30/16 18:00 01/23/17 20:50 (Romazicon Inj) 0.2 mg Q1M PRN IV PUSH 12/01/16 13:00 (Tylenol 650 Mg/ 20 ml Liq) 650 mg Q6H PRN PO 12/01/16 17:30 12/02/16 01:07 (Miralax) 17 gm DAILY PO 12/04/16 09:00 01/29/17 08:22 (Theragran) 1 tab DAILY PO 12/05/16 09:00 01/30/17 08:50 (Lipitor) 40 mg HS PO 12/12/16 21:00 Future hold 01/29/17 20:50 (NS Flush) See Protocol DAILY IV FLUSH 12/13/16 09:00 01/30/17 08:51 (NS Flush) See Protocol UNSCH PRN IV FLUSH 12/12/16 17:00 (Heparin Central Flush) See Protocol DAILY IV FLUSH 12/13/16 09:00 01/30/17 08:50 (Heparin Central Flush) See Protocol UNSCH PRN IV FLUSH 12/12/16 17:00 (NS Flush) UNSCH PRN IV FLUSH 12/12/16 17:00 12/19/16 01:59 (Nitrostat Sl) 0.4 mg Q5M PRN SL 12/16/16 00:15 (Cardizem) 90 mg Q6H PO 12/18/16 23:00 Future Hold 12/25/16 12:14 (Lanoxin) 0.25 mg DAILY PO 12/22/16 09:00 Future Hold 12/25/16 08:06 (Carafate Liq) 1 gm ACHS PO 12/22/16 11:00 01/30/17 08:49 (Lopressor Inj) 5 mg Q1HR PRN IV PUSH 12/22/16 09:45 12/30/16 10:37 (Lopressor) 25 mg Q6HR PO 12/22/16 13:00 01/30/17 00:50 (Duoneb Neb) 1 ampule Q2HR NEB PRN INH 12/25/16 21:00 01/15/17 15:37 (Plavix) 75 mg DAILY PO 12/29/16 09:00 01/30/17 08:50 (Ecotrin Ec) 162 mg DAILY PO 12/29/16 09:00 Future hold 01/30/17 08:51 (Tears Naturale Opth Soln) 1 drop Q8HR EACH EYE 01/04/17 14:00 01/30/17 04:50 (Levemir Inj) 30 units Q12HR SQ 01/06/17 21:00 01/30/17 08:52 (Cordarone) 200 mg Q12HR PO 01/07/17 10:00 01/30/17 08:51 (Synthroid) 50 mcg DAILY@0600 PO 01/11/17 06:00 01/30/17 04:50 (Percocet 10-325 Mg) 1 tab Q4H PRN PO 01/10/17 14:15 01/30/17 08:58 (Roxicodone) 5 mg Q4H PRN PO 01/10/17 14:15 01/28/17 03:39 (Restoril) 15 mg HS PRN PO 01/11/17 11:45 01/29/17 20:52 (D50w (Vial) Inj) 50 ml UNSCH PRN IV 01/11/17 12:15 (Glucagon Inj) 1 mg UNSCH PRN OTHER 01/11/17 12:15 (NovoLOG SUPPLEMENTAL SCALE) 1 ACHS SLIDING SCALE SQ 01/11/17 16:00 01/29/17 12:00 (Levaquin) 750 mg DAILY PO 01/24/17 09:00 01/30/17 08:50 (Santyl Oint) 1 applic DAILY TOPICAL 01/24/17 15:00 01/30/17 08:53 (Deltasone) 5 mg Q48H PO 01/27/17 09:00 02/02/17 08:59 01/29/17 08:25 (Ativan) 0.5 mg Q8H PRN PO 01/26/17 23:15 01/30/17 08:53 (Lasix) 40 mg BID@18 PO 01/27/17 18:00 01/30/17 08:50 (Protonix) 40 mg Q12HR PO 01/28/17 21:00 01/30/17 08:50 (Heparin Inj) 5,000 units Q12HR SQ 01/28/17 21:00 01/30/17 08:50 A/P Problem List: (1) Intractable abdominal pain ICD Code: R10.9 - Unspecified abdominal pain Status: Acute (2) Esophageal carcinoma ICD Code: C15.9 - Malignant neoplasm of esophagus, unspecified Status: Acute (3) SCC (squamous cell carcinoma) ICD Code: C44.92 - Squamous cell carcinoma of skin, unspecified Status: Acute (4) Hypokalemia ICD Code: E87.6 - Hypokalemia Status: Acute (5) Lactic acidosis ICD Code: E87.2 - Acidosis Status: Acute (6) Renal insufficiency ICD Code: N28.9 - Disorder of kidney and ureter, unspecified Status: Acute (7) Elevated troponin ICD Code: R74.8 - Abnormal levels of other serum enzymes Status: Acute (8) DM (diabetes mellitus) ICD Code: E11.9 - Type 2 diabetes mellitus without complications Status: Acute (9) Tobacco abuse ICD Code: Z72.0 - Tobacco abuse Status: Acute (10) NSTEMI (non-ST elevated myocardial infarction) ICD Code: I21.4 - Non-ST elevation (NSTEMI) myocardial infarction Status: Chronic (11) Bacteremia due to Gram-positive bacteria ICD Code: R78.81 - Bacteremia Status: Acute (12) Encephalopathy, metabolic ICD Code: G93.41 - Metabolic encephalopathy Status: Acute Assessment and Plan Acute metabolic Encephalopathy Most likely secondary to Hypoxia, sepsis, Resolved. - Completed therapy with Thiamine for Possible alcohol withdrawal 12/05/16, improved. - Currently off all sedation. On Percocet 10 q4. Oxycodone additional 5 as needed for breakthrough. - Ativan started for anxiety. Will monitor mental status. Stable. Acute Hypoxemic Respiratory failure History of COPD, Tobacco abuse, Bilateral Pleural Effusions - Emergently intubated and placed on mechanical ventilation 12/02/16, extubated 12/03/16 - Re intubated 01/01/17 PRVC ventilation 16/550//35. Extubated 01/06 - Now on nasal cannula. - CT chest revealed bilateral pleural effusions. Thoracentesis -1200 cc 12/30. Placement of Left #10 [place] pigtail catheter 01/03. Was dislodged 01/09. Placement of right #10 [place] pigtail catheter 01/06. - Right pleural fluid Cytology negative for malignancy 01/06 and Pleural fluid cytology negative 12/30 - the patient removed the right chest tube by accident, CXR taken showed some interstitial changes and probable left lower lung consolidation. pc support specialist following. Added Levaquin. - wean off prednisone. - repeat CXR 01/27 with worsening right base disease. Continue by mouth Levaquin. Continue diuresis. Pericardial effusion, tamponade/ Atrial fibrillation with RVR/ NSTEMI/ Dynamic LVOT obstruction - Emergency Pericardiocentesis drains -01/01. Cc. Cultures no growth. Removed drain 01/06, Followup limited Echo 01/07 EF 60-65%. Trivial small pericardial effusion present - Cardiac catheterization 12/01 revealed EF around 60%. Left main normal. RCA normal. LAD 70% ostial. Bare stent left circumflex 70%. - Resume ASA 162 mg daily, d/c rectal ASA/ Continue Plavix 75 mg daily - Continue amiodarone 200 mg by mouth every 12 hours. - Continue Metoprolol 25 mg every 6 hours with holding parameters - 2-D echo no veg, EF 50-55%. Mild MR, mild AR. Pseudo-outflow obstruction due to concentric hypertrophy and hyperdynamic ventricle - Continue Lasix. Switch to 40 mg PO BID. KCL Effervescent 25 bid x2. - Holding home medications of losartan 100 mg, amlodipine 10 mg daily, normotensive. - Continue atorvastatin 40 by mouth daily for dyslipidemia. - Pericardial fluid cytology 01/01 - negative for malignancy - repeat CXR 01/27 with worsening right sided airspace disease. Continue by mouth Levaquin. Continue diuresis. - fluid restriction. Invasive adenocarcinoma of the esophagus/ Liver cirrhosis - Tolerating mechanical soft, thin liquids. Speech therapy has signed off. - Patient's intake improving. Discontinue TPN - Has biopsy proven invasive adenocarcinoma of esophagus - Status post EUS/esophageal stent placement 12/25 Dr. Tejeda. - IV Protonix twice a day continue. - Carafate 1 g by mouth daily per her GI - Surgery removed port - Patient declined PEG. Per surgery repeat calorie count. Tolerating supplements. Septic shock/ MSSA bacteremia/ Pseudomonas pneumonia - Rapid clinical improvement after [id number] was removed. remains off all pressors - Catheter tip culture blood culture and wound culture also positive for MSSA - Completed Rifampin, for synergy per ID (on po now), Completed Ancef, Levaquin. - Infectious disease Dr. Nassar. 2D Echo neg for endocarditis, Unable to do PAM due to esophageal - resumed on Levaquin per pulmonology. Chest tightness Likely s/t above. EKG without new changes. Trops are coming down from previous values. - treatment as above. 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 Bell is following - Status post surgical resection for L parotid SCC at [facility] 10/01 - Hematology plans to give weekly Erbitux and XRT outpatient. - Transfuse as needed for hemoglobin less than 8 DM II Well controlled. - continue long lasting insulin and sliding scale, Stage IV Sacral, Coccyx ulcer, Wound care following. - continue Santyl PPx: Heparin Discharge Planning D/c when bed available at [facility] Bebeto Day DO Jan 30, 2017 09:14
--- NOTE | 2017-01-30 11:49 | HHI.PR ---
Subjective Remarks 61 YOWM with COPD,DM,AF Had Pericardial effusion and Pericardiocentesis. Mild SOB No Fever Up in chair. Still has swelling legs Ambulates in the room No new complaint Objective Vital Signs Vital Signs Date Time Temp Pulse Resp B/P (MAP) Pulse Ox O2 Delivery O2 Flow Rate FiO2 01/30/17 08:00 97.2 92 18 95/53 (67) 97 01/30/17 04:00 98.2 90 20 115/60 (78) 95 01/30/17 04:00 Nasal Cannula 2.00 01/30/17 00:00 Nasal Cannula 2.00 01/30/17 00:00 97.4 94 20 112/51 (71) 98 01/29/17 20:58 98 Nasal Cannula 2.00 01/29/17 20:00 Room Air 01/29/17 20:00 98.3 91 20 96/50 (65) 99 01/29/17 20:00 93 01/29/17 16:00 97.6 96 18 118/53 (74) 100 01/29/17 12:00 97.3 100 18 105/53 (70) 96 I/O 01/29/17 01/29/17 01/29/17 01/30/17 01/30/17 01/30/17 07:00 15:00 23:00 07:00 15:00 23:00 Intake Total 480 ml 720 ml 120 ml Output Total 300 ml 375 ml Balance 180 ml 720 ml -255 ml Intake Oral 480 ml 720 ml 120 ml Output Urine Total 300 ml 375 ml # Voids 2 # Bowel Movements 0 1 1 Result Diagram: 01/29/1761401/29/1715 Objective Remarks GENERAL: WBWN WM,NAD SKIN: Warm and dry. HEAD: Normocephalic. EYES: No scleral icterus. No injection or drainage. NECK: Supple, trachea midline. No JVD or lymphadenopathy. CARDIOVASCULAR: Regular rate and rhythm without murmurs, gallops, or rubs. RESPIRATORY: Breath sounds equal bilaterally. No accessory muscle use. GASTROINTESTINAL: Abdomen soft, non-tender, nondistended. MUSCULOSKELETAL: No cyanosis, or edema. BACK: Nontender without obvious deformity. No CVA tenderness. A/P Assessment and Plan Right Pl effusion, s/p Chest tube placement S/P Pericardiocentesis AF CAD HTN PLAN: Supplement 02 Aerosol nebs OOB in Chair DW pt and his Stable from Pulm standpoint DC plans underway for Anupama KAREN Will FU in office 2 weeks Chace Luna MD Jan 30, 2017 11:49
[2017-01-31] MEDS ORDERED: DULC10SU3 RECTAL (11:03)
[2017-01-31] MEDS ORDERED: MILKSUS PO (11:03)
[2017-01-31] MEDS ORDERED: LUTE1CAP10 PO (11:03)
[2017-01-31] MEDS ORDERED: CITRSOL4 PO (11:03)
[2017-01-31] MEDS ORDERED: TYLE325T PO (11:03)
[2017-01-31] MEDS ORDERED: ENEMENE5 RECTAL (11:03)
[2017-01-31] MEDS ORDERED: ASPI81CH37 PO (11:05)
== END 2017-01-30 12:41 | DRG 248 ==
LOC: NEPE 23:36 → NEDA 11-30 02:20 → HIME 11-30 04:45 → HOCB 12-15 11:01 → HCIS 12-17 23:50 → N03B 12-25 21:27 → HCIN 01-11 19:22 → N04A 01-13 16:24
PROVIDERS: ADMIT Hospitalist; ATTEND Hospitalist
PROC: 02703EZ Dilation of Coronary Artery, One Artery with Two Intraluminal Devices, Percutaneous Approach (ICD-10-PCS; principal; 2016-11-30)
PROC: 4A023N7 Measurement of Cardiac Sampling and Pressure, Left Heart, Percutaneous Approach (ICD-10-PCS; 2016-11-30)
PROC: B2111ZZ Fluoroscopy of Multiple Coronary Arteries using Low Osmolar Contrast (ICD-10-PCS; 2016-11-30)
PROC: B2151ZZ Fluoroscopy of Left Heart using Low Osmolar Contrast (ICD-10-PCS; 2016-11-30)
PROC: 02PY33Z Removal of Infusion Device from Great Vessel, Percutaneous Approach (ICD-10-PCS; 2016-12-02)
PROC: 5A1945Z Respiratory Ventilation, 24-96 Consecutive Hours (ICD-10-PCS; 2016-12-02)
PROC: 03HY32Z Insertion of Monitoring Device into Upper Artery, Percutaneous Approach (ICD-10-PCS; 2016-12-02)
PROC: 02HV33Z Insertion of Infusion Device into Superior Vena Cava, Percutaneous Approach (ICD-10-PCS; 2016-12-02)
PROC: 0BH18EZ Insertion of Endotracheal Airway into Trachea, Via Natural or Artificial Opening Endoscopic (ICD-10-PCS; 2016-12-02)
PROC: 30233N1 Transfusion of Nonautologous Red Blood Cells into Peripheral Vein, Percutaneous Approach (ICD-10-PCS; 2016-12-13)
PROC: 0D758DZ Dilation of Esophagus with Intraluminal Device, Via Natural or Artificial Opening Endoscopic (ICD-10-PCS; 2016-12-25)
PROC: 0DC58ZZ Extirpation of Matter from Esophagus, Via Natural or Artificial Opening Endoscopic (ICD-10-PCS; 2016-12-25)
PROC: 0W993ZX Drainage of Right Pleural Cavity, Percutaneous Approach, Diagnostic (ICD-10-PCS; 2016-12-30)
PROC: 0W9D30Z Drainage of Pericardial Cavity with Drainage Device, Percutaneous Approach (ICD-10-PCS; 2017-01-01)
PROC: 0W9B30Z Drainage of Left Pleural Cavity with Drainage Device, Percutaneous Approach (ICD-10-PCS; 2017-01-03)
PROC: 0W9930Z Drainage of Right Pleural Cavity with Drainage Device, Percutaneous Approach (ICD-10-PCS; 2017-01-06)
DX: I21.4 Non-ST elevation (NSTEMI) myocardial infarction (principal); A41.01 Sepsis due to Methicillin susceptible Staphylococcus aureus; J96.01 Acute respiratory failure with hypoxia; N17.0 Acute kidney failure with tubular necrosis; D65 Disseminated intravascular coagulation [defibrination syndrome]; J44.0 Chronic obstructive pulmonary disease with (acute) lower respiratory infection; G93.41 Metabolic encephalopathy; C15.5 Malignant neoplasm of lower third of esophagus; J90 Pleural effusion, not elsewhere classified; J15.1 Pneumonia due to Pseudomonas; E87.2 Acidosis; R65.21 Severe sepsis with septic shock; I31.4 Cardiac tamponade; E87.3 Alkalosis; N39.0 Urinary tract infection, site not specified; J44.1 Chronic obstructive pulmonary disease with (acute) exacerbation; T80.211A Bloodstream infection due to central venous catheter, initial encounter; I31.3 Pericardial effusion (noninflammatory); I48.92 Unspecified atrial flutter; R04.2 Hemoptysis; D62 Acute posthemorrhagic anemia; K92.0 Hematemesis; L89.154 Pressure ulcer of sacral region, stage 4; L89.324 Pressure ulcer of left buttock, stage 4; L89.314 Pressure ulcer of right buttock, stage 4; D69.59 Other secondary thrombocytopenia; C07 Malignant neoplasm of parotid gland; E87.6 Hypokalemia; E11.9 Type 2 diabetes mellitus without complications; I25.10 Atherosclerotic heart disease of native coronary artery without angina pectoris; K74.60 Unspecified cirrhosis of liver; E83.42 Hypomagnesemia; E86.0 Dehydration; F17.210 Nicotine dependence, cigarettes, uncomplicated; D50.9 Iron deficiency anemia, unspecified; E03.9 Hypothyroidism, unspecified; E78.5 Hyperlipidemia, unspecified; I48.91 Unspecified atrial fibrillation; I11.0 Hypertensive heart disease with heart failure; I50.9 Heart failure, unspecified; Z85.828 Personal history of other malignant neoplasm of skin; K59.00 Constipation, unspecified; R29.6 Repeated falls; Z79.84 Long term (current) use of oral hypoglycemic drugs; Z88.0 Allergy status to penicillin
CPT/HCPCS: 31500; 32551; 32555; 36430; 36556; 36569; 36600; 43259; 70450; 70551; 71010; 71020; 71250; 71275; 74000; 74177; 74183; 74230; 76000; 76937; 77334; 80048; 80053; 80061; 80069; 80074; 80076; 80162; 80202; 81001; 82103; 82105; 82140; 82150; 82272; 82390; 82550; 82607; 82728; 82747; 82805; 82945; 82948; 83010; 83520; 83540; 83550; 83605; 83615; 83690; 83735; 83880; 83986; 84100; 84132; 84155; 84157; 84443; 84466; 84484; 85007; 85014; 85018; 85025; 85027; 85384; 85610; 85730; 86038; 86255; 86403; 86850; 86900; 86901; 86920; 87015; 87040; 87070; 87071; 87077; 87086; 87102; 87116; 87147; 87186; 87205; 87206; 87522; 87641; 87902; 88112; 88305; 89051; 92928; 93005; 93306; 93308; 93454; 93971; 94002; 94003; 94150; 94640; 94664; 94667; 94668; 95819; 96374; 99231; A9579; C1725; C1769; C1876; C1887; C1893; C2625; C9113; G0269; J0171; J0282; J0461; J0610; J0690; J0692; J1120; J1160; J1170; J1642; J1644; J1650; J1756; J1815; J1940; J2060; J2212; J2250; J2270; J2370; J2405; J2920; J2930; J3010; J3370; J3411; J3475; J3480; J7030; J7040; J7050; J7060; J7120; J7512; P9016; P9022; P9047; Q9967

== ENCOUNTER 2017-01-31 08:11 | Inpatient (IN) | payer OTHER, MEDICARE ==
[~2017-01-31] VITALS: Ht 180.3 cm; Wt 107.5 kg
[2017-01-31] VITALS (41 sets, daily range): BP systolic 58–143; BP diastolic 29–97; PULSE 54–110; RESP 16–28; TEMP 97.5–98.2; O2SAT 94–100
[~2017-01-31 08:11] MED LIST changes: +AMIO200T PO; -AMLO10TA2 PO; +ASPI-99 PO; -ATENOLO PO; -CHLOR PO; +COLL30T TOPICAL; +DILT90TA PO; +EPINEPHrine HCL (1:10,000) 1 MG/10 ML SYRINGE IV ONE; +FURO40TA PO; -GLIP10TA6 PO; +IPRASOL INH; +LORA-392 PO; -LOSA100T PO; +METO25TA3 PO; -OMEP20TA PO; +OXYC-392 PO; +PANT40TA3 PO; +PLAV75TA29 PO; +POLY17S PO; +POTA-163 PO; +PRED5TAB PO; +REST15CA PO; +SODIUM BICARBONATE 8.4% INJ 50 MEQ/50 ML SYR IV ONE; +SUCR1S PO; -TRAM50TA PO
[2017-01-31] MEDS ORDERED: SODIUM CHLORID 0.9% 500 ML INJ 500 ML IV ONE (08:30)
[2017-01-31] MEDS ORDERED: NOREPINEPHRINE 4 MG/4 ML AMP ONE (08:45)
[2017-01-31] MEDS ORDERED: ETOMIDATE 20 MG/10 ML VIAL ONE (08:49)
[2017-01-31] MEDS ORDERED: SUCCINYLCHOLINE CHLORIDE 200 MG/10 ML VIAL ONE (08:50)
[2017-01-31 08:52] LABS: AUTOMATED NEUTROPHIL # 10.3 TH/MM3 (1.8-7.7); BASOPHIL % 0.1 % (0.0-2.0); HEMATOCRIT 27.9 % (39.0-51.0); HEMO FLAGS DIFF FINAL; LYMPH % 10.9 % (9.0-44.0); LYMPHOCYTE # 1.4 TH/MM3 (1.0-4.8); MEAN CELL VOLUME 93.3 FL (80.0-100.0); MEAN CORPUSCULAR HEMOGLOBIN 27.8 PG (27.0-34.0); MONO % 7.2 % (0.0-8.0); NEUT % 81.8 % (16.0-70.0); PLATELET COUNT 288 TH/MM3 (150-450); RED BLOOD COUNT 2.98 MIL/MM3 (4.50-5.90); RED CELL DISTRIBUTION WIDTH 19.1 % (11.6-17.2); WHITE BLOOD COUNT 12.5 TH/MM3 (4.0-11.0)
[2017-01-31] MEDS ORDERED: MIDAZOLAM 100 MG/100 ML INJ 100 ML ONE (08:53)
[2017-01-31 08:54] LABS: MEAN CORPUSCULAR HGB CONC 29.8 % (32.0-36.0)
[2017-01-31 09:00] LABS: APTT (PATIENT) 27.1 SEC (24.3-30.1); INTERNATIONAL NORMALIZED RATIO 1.3 RATIO; PROTHROMBIN TIME - PATIENT 14.3 SEC (9.8-11.6)
[2017-01-31 09:30] LABS: ALKALINE PHOSPHATASE 109 U/L (45-117); ALT (GPT) 22 U/L (12-78); ANION GAP 19 MEQ/L (5-15); AST (GOT) 84 U/L (15-37); BICARBONATE 16.2 MEQ/L (21.0-32.0); BLOOD UREA NITROGEN 33 MG/DL (7-18); CHLORIDE 90 MEQ/L (98-107); GLOMERULAR FILTRATION RATE 41 ML/MIN (>89); SODIUM (NA) 125 MEQ/L (136-145); TOTAL BILIRUBIN ADULT 0.9 MG/DL (0.2-1.0)
[2017-01-31 09:34] LABS: CREATINE KINASE 90 U/L (39-308); POTASSIUM 6.9 MEQ/L (3.5-5.1)
[2017-01-31] MEDS ORDERED: CALCIUM GLUCONATE INJ 1 GM in SODIUM CHLORIDE 0.9% INJ 100 ML IV ONE (10:00)
[2017-01-31] MEDS ORDERED: SENNOSIDES 8.6 MG TAB PO PRN (10:00)
[2017-01-31] MEDS ORDERED: MAGNESIUM HYDROXIDE SUSP 30 ML CUP PO PRN (10:00)
[2017-01-31] MEDS ORDERED: DEXTROSE 50% IN WATER 50 ML VIAL(D50) IV PRN (10:00)
[2017-01-31] MEDS ORDERED: LACTULOSE SYRUP 20 GM/30 ML CUP PO PRN (10:00)
[2017-01-31] MEDS ORDERED: BISACODYL 10 MG SUPP RECTAL PRN (10:00)
[2017-01-31] MEDS ORDERED: CHLORHEXIDINE GLUCONATE 2 % 1 PACK (2 CLOTHS) TOP PRN (10:00)
[2017-01-31] MEDS ORDERED: INSULIN HUMAN REGULAR 1,000 UNITS/10 ML VIAL IV PUSH ONE ×2 (10:00)
[2017-01-31] MEDS ORDERED: GLUCAGON 1 MG/ML VIAL OTHER PRN (10:00)
[2017-01-31] MEDS ORDERED: HEPARIN SODIUM - SQ 10,000 UNITS/ML VIAL SQ SCH (10:00)
[2017-01-31] MEDS ORDERED: SODIUM BICARBONATE 8.4% INJ 150 MEQ in DEXTROSE 5% IN WATE 1000ML INJ 1,000 ML IV SCH ×2 (10:00)
[2017-01-31] MEDS ORDERED: DEXTROSE 50% IN WATER 50 ML SYRINGE IV PUSH ONE ×2 (10:00)
[2017-01-31] MEDS: RESP: ALBUTEROL 2.5 MG/IPRATROPIUM 0.5 MG NEB (SCH) INH ×3 (10:00→21:09)
[2017-01-31] MEDS ORDERED: MISCELLANEOUS NURSING INFORMATION XX SCH (10:00)
[2017-01-31] MEDS ORDERED: VANCOMYCIN INJ 1,000 MG in SODIUM CHLOR 0.9% 250 ML INJ 250 ML IV ONE (10:15)
[2017-01-31] MEDS ORDERED: Vancomycin Consult Pharmacy 1 EA OTHER SCH (10:15)
[2017-01-31] MEDS ORDERED: RESP: ALBUTEROL 2.5 MG/3 ML NEB (PRN) ONE (10:37)
--- NOTE | 2017-01-31 10:43 | PD ---
HPI Chief Complaint: Respiratory Symptoms Time Seen by Provider: 08:28 Travel History International Travel<30 days: No Contact w/Intl Traveler<30days: No Traveled to known affect area: No History of Present Illness HPI This is a 61-year-old gentleman with a history of CHF, metastatic squamous cell carcinoma, ascites, who presents via the [facility] for shortness of breath and weakness. When paramedics arrived, the nurse she was taking care of the patient stated she did not know anything about him as she had just come back from a long vacation. She was unable to give them any information. The patient was extremely to With a low saturation and utilization management um nurse's place patient on 100% nonrebreather which brought his O2 sats up to 99-100. The report his blood pressure was 70. The patient was extremely edematous and they were unable to start a line. When patient arrived he was extremely to With one word sentences. He was in significant distress and was not able to provide any significant history. Patient was discharged from the hospital yesterday after being admitted for sepsis. He also had a cardiac stent placed a month ago. The patient is currently being worked up with oncology for his cancer. PFSH Past Medical History Hx Anticoagulant Therapy: Yes (PLAVIX ) Asthma: No Autoimmune Disease: No Cancer: Yes (LUNG) Cardiovascular Problems: Yes High Cholesterol: Yes Chemotherapy: No Congestive Heart Failure: Yes Cirrhosis: Yes (1996) Coronary Artery Disease: Yes Diabetes: Yes Patient Takes Glucophage: Yes Diminished Hearing: No Endocrine: No GERD: Yes (Pt states not sure.) Genitourinary: No Hepatitis: Yes (C [place] 1996) Hiatal Hernia: Yes Hypertension: Yes Immune Disorder: No Kidney Stones: No Musculoskeletal: No Neurologic: No Psychiatric: No Reproductive: No Respiratory: No Immunizations Current: No Myocardial Infarction: Yes Radiation Therapy: No Renal Failure: No Sickle Cell Disease: No Sleep Apnea: No Thyroid Disease: Yes Triglycerides - High: Yes Ulcer: No Tetanus Vaccination: Unknown Influenza Vaccination: No Past Surgical History Abdominal Surgery: Yes AICD: No Appendectomy: Yes (1980) Arteriovenous Shunt: No Cardiac Surgery: No Ear Surgery: Yes (Left ear at [facility]) Endocrine Surgery: No Eye Surgery: No Genitourinary Surgery: No Gynecologic Surgery: No (N/A) Insulin Pump: No Joint Replacement: No Oral Surgery: No Pacemaker: No Thoracic Surgery: No Other Surgery: Yes Social History Alcohol Use: Yes Tobacco Use: No (quit 1 week ago) Substance Use: Yes (pot a few times a day) Allergies-Medications (Allergen,Severity, Reaction): Coded Allergies: penicillin G (Unverified Allergy, Mild, Hives, 12/30/16) Reported Meds & Prescriptions Reported Meds & Active Scripts Active Santyl (Collagenase) 250 Unit/Gram Oin 1 Applic TOPICAL DAILY 30 Days Potassium Chloride ER (Potassium Chloride) 20 Meq Tab 20 Meq PO BID Prednisone 5 Mg Tab 5 Mg PO Q48H Pantoprazole (Pantoprazole Sodium) 40 Mg Tab 40 Mg PO Q12HR Sucralfate Liq (Sucralfate) 1 Gram/10 Ml Bea 1 Gm PO ACHS 30 Days Polyethylene Glycol 3350 Powder (Polyethylene Glycol) 17 Gram Pow 17 Gm PO DAILY Furosemide 40 Mg Tab 40 Mg PO BID@09,18 Restoril (Temazepam) 15 Mg Cap 15 Mg PO HS PRN Ativan (Lorazepam) 0.5 Mg Tab 0.5 Mg PO Q8H PRN Adult Aspirin EC Low Strength (Aspirin) 81 Mg Tabec 162 Mg PO DAILY Diltiazem (Diltiazem HCl) 90 Mg Tab 90 Mg PO Q6H Metoprolol Tartrate 25 Mg Tab 25 Mg PO Q8HR Amiodarone (Amiodarone HCl) 200 Mg Tab 200 Mg PO Q12HR Plavix (Clopidogrel Bisulfate) 75 Mg Tab 75 Mg PO DAILY Duoneb (Ipratropium-Albuterol Neb) 0.5-2.5 Mg/3 Ml Neb 1 Ampule INH Q2HR NEB PRN Oxycodone (Oxycodone HCl) 5 Mg Tab 5 Mg PO Q4H PRN Reported B-12 (Cyanocobalamin) 1,000 Mcg Subl 1,000 Mcg PO DAILY Vitamin D3 (Cholecalciferol) 1,000 Unit Tab 1,000 Units PO DAILY Levothyroxine (Levothyroxine Sodium) 50 Mcg Tab 50 Mcg PO DAILY Atorvastatin (Atorvastatin Calcium) 40 Mg Tab 40 Mg PO HS Metformin (Metformin HCl) 1,000 Mg Tab 1,000 Mg PO BIDPC With meals Lantus Inj (Insulin Glargine) 1,000 Unit/10 Ml Vial 40 Units SQ HS [Eye Vitamin] 1 Tab PO DAILY Review of Systems ROS Limitations: Altered Mental Status, Other: (unable to get significant review of systems secondary to patient's severe tachypnea.) Except as stated in HPI: all other systems reviewed are Neg HENT: No: Headaches, Neck Pain Cardiovascular: No: Chest Pain or Discomfort, Palpitations Respiratory: Positive: Shortness of Breath Neurologic: Positive: Weakness, Change in Mentation, No: Headache Physical Exam Narrative GENERAL: Ill appearing male in moderate to severe respiratory distress. SKIN: Focused skin assessment warm/dry. Patient has bandages to his bilateral legs. Patient also has a stage IV decubitus ulcer to his sacral area. HEAD: Atraumatic. Normocephalic. EYES: Pupils equal and round. No scleral icterus. No injection or drainage. ENT: No nasal bleeding or discharge. Mucous membranes pink and dry. NECK: Trachea midline. Supple. No JVD. CARDIOVASCULAR: Bradycardic with wide QRS complex. RESPIRATORY: Tachypnea with a rate in the 30s. No obvious Rales appreciated. GASTROINTESTINAL: Abdomen soft, non-tender, nondistended. No rebound or guarding. MUSCULOSKELETAL: No obvious deformities. No clubbing. No cyanosis. No edema. Patient has bandages to his lower legs. It appeared to be wound dressing changes. NEUROLOGICAL: Awake and confused and weak. No obvious cranial nerve deficits. Motor grossly within normal limits. Fragmented speech secondary to tachypnea. Data Data Last Documented VS Vital Signs Date Time Temp Pulse Resp B/P (MAP) Pulse Ox O2 Delivery O2 Flow Rate FiO2 01/31/17 10:13 70 20 89/41 (57) 01/31/17 09:56 98 Ventilator 100 01/31/17 08:15 97.6 Orders Orders Complete Blood Count With Diff (01/31/17 08:28) Comprehensive Metabolic Panel (01/31/17 08:28) Prothrombin Time / Inr (Pt) (01/31/17 08:28) Act Partial Throm Time (Ptt) (01/31/17 08:28) Lactic Acid Sepsis Protocol (01/31/17 08:28) Ckmb (Isoenzyme) Profile (01/31/17 08:28) Troponin I (01/31/17 08:28) Urinalysis - C+S If Indicated (01/31/17 08:28) Blood Culture (01/31/17 08:28) Chest, Single Ap (01/31/17 08:28) Arterial Blood Gas (Abg) (01/31/17 08:28) Blood Glucose (01/31/17 08:28) Ecg Monitoring (01/31/17 08:28) Iv Access Insert/Monitor (01/31/17 08:28) Oximetry (01/31/17 08:28) Oxygen Administration (01/31/17 08:28) Sodium Chlorid 0.9% 500 Ml Inj (Ns 500 M (01/31/17 08:30) Norepinephrine Inj (Levophed Inj) (01/31/17 08:45) Etomidate Inj (Amidate Inj) (01/31/17 08:49) Succinylcholine Inj (Quelicin Inj) (01/31/17 08:50) Midazolam 100 Mg/100 Ml Inj (Versed Inj) (01/31/17 08:53) Admit To Inpatient (01/31/17 ) Code Status (01/31/17 09:53) Vital Signs (Adult) NOÉ.Q1H (01/31/17 09:53) Activity Bed Rest (01/31/17 09:53) Elevate Head Of Bed (01/31/17 09:53) Neuro Checks . ORDERED (01/31/17 09:53) Intake + Output Q1H (01/31/17 09:53) Pantoprazole Inj (Protonix Inj) (01/31/17 10:00) Albuterol-Ipratropium Neb (Duoneb Neb) (01/31/17 10:00) Complete Blood Count With Diff (02/01/17 04:00) Comprehensive Metabolic Panel (02/01/17 04:00) Consult Nephrology (01/31/17 ) Acting Instructor / Telemetry NOÉ.Q8H (01/31/17 09:53) Heparin Inj (Heparin Inj) (01/31/17 10:00) ^ Initiate Protocol (01/31/17 09:53) Instruction (01/31/17 09:53) [facility] [place]01/31/17 10:00) Chlorhexidine 2% Cloth (Chlorhexidine 2% (02/01/17 04:00) Chlorhexidine 2% Cloth (Chlorhexidine 2% (01/31/17 10:00) Mrsa Pcr Surveillance (01/31/17 09:53) Docusate Sodium-Senna (Rere-Colace) (01/31/17 21:00) Magnesium Hydroxide Liq (Milk Of Magnesi (01/31/17 10:00) Sennosides (Senokot) (01/31/17 10:00) Bisacodyl Supp (Dulcolax Supp) (01/31/17 10:00) Lactulose Liq (Lactulose Liq) (01/31/17 10:00) Inpatient Certification (01/31/17 ) Dextrose 5% In Wate... W/Sodium Bicarbon (01/31/17 10:00) Calcium Gluconate Inj (Calcium Gluconate (01/31/17 10:00) Blood Glucose Goal (Criteria) (01/31/17 09:56) Hypoglycemia 70 Mg/Dl Or < (01/31/17 09:56) Notify Dr: Other (01/31/17 09:56) Dextrose 50% In John (Vial) Inj (D50w (Vi (01/31/17 10:00) Glucagon Inj (Glucagon Inj) (01/31/17 10:00) Insulin Human Reg Supp Scale (Novolin R (01/31/17 10:00) Dextrose 50% In John (Syr) Inj (D50w (Syr (01/31/17 10:00) Insulin Human Regular Inj (Novolin R Inj (01/31/17 10:00) Insulin Human Regular Inj (Novolin R Inj (01/31/17 10:00) Dextrose 50% In John (Syr) Inj (D50w (Syr (01/31/17 10:00) Electrocardiogram (01/31/17 08:26) Hydrocortisone Inj (Solucortef Inj) (01/31/17 10:15) Aspirin Ec (Ecotrin Ec) (01/31/17 10:15) Clopidogrel (Plavix) (01/31/17 10:15) Sputum Culture And Gram Stain (01/31/17 10:09) Levofloxacin 500 Mg Premix Inj (Levaquin (01/31/17 10:15) Vancomycin Inj (Vancomycin Inj) (01/31/17 10:15) Vancomycin Consult Pharmacy (Vancomycin (01/31/17 10:15) Consult Infectious Disease (01/31/17 ) Ct Abd/Pel W/O Iv Contrast (01/31/17 ) Oral Contrast - Adult (01/31/17 10:17) Labs Laboratory Tests Test 01/31/17 08:30 White Blood Count 12.5 TH/MM3 Red Blood Count 2.98 MIL/MM3 Hemoglobin 8.3 GM/DL Hematocrit 27.9 % Mean Corpuscular Volume 93.3 FL Mean Corpuscular Hemoglobin 27.8 PG Mean Corpuscular Hemoglobin Concent 29.8 % Red Cell Distribution Width 19.1 % Platelet Count 288 TH/MM3 Mean Platelet Volume 8.7 FL Neutrophils (%) (Auto) 81.8 % Lymphocytes (%) (Auto) 10.9 % Monocytes (%) (Auto) 7.2 % Eosinophils (%) (Auto) 0.0 % Basophils (%) (Auto) 0.1 % Neutrophils # (Auto) 10.3 TH/MM3 Lymphocytes # (Auto) 1.4 TH/MM3 Monocytes # (Auto) 0.9 TH/MM3 Eosinophils # (Auto) 0.0 TH/MM3 Basophils # (Auto) 0.0 TH/MM3 CBC Comment DIFF FINAL Differential Comment Prothrombin Time 14.3 SEC Prothromb Time International Ratio 1.3 RATIO Activated Partial Thromboplast Time 27.1 SEC Blood Urea Nitrogen 33 MG/DL Creatinine 1.71 MG/DL Random Glucose 137 MG/DL Total Protein 7.4 GM/DL Albumin 2.7 GM/DL Calcium Level 8.4 MG/DL Alkaline Phosphatase 109 U/L Aspartate Amino Transf (AST/SGOT) 84 U/L Alanine Aminotransferase (ALT/SGPT) 22 U/L Total Bilirubin 0.9 MG/DL Sodium Level 125 MEQ/L Potassium Level 6.9 MEQ/L Chloride Level 90 MEQ/L Carbon Dioxide Level 16.2 MEQ/L Anion Gap 19 MEQ/L Estimat Glomerular Filtration Rate 41 ML/MIN Lactic Acid Level 12.5 mmol/L Total Creatine Kinase 90 U/L Troponin I 0.12 NG/ML MDM Medical Decision Making Medical Screen Exam Complete: Yes Emergency Medical Condition: Yes Differential Diagnosis Sepsis versus metabolic arrangement versus electrolyte abnormality versus CHF versus pneumonia Narrative Course 61-year-old male since in respiratory distress and hypotensive. The patient had no I V access when he arrived. The patient had a heart rate in the 30s and 40s. He quickly bradyed down and went into PEA. ACLS was initiated. He was given 2 doses of epinephrine with chest compressions. Patient did regain a pulse. He remained hypotensive. Levothroid was initiated which brought his blood pressure up to the 100s however he started to become hypotensive shortly after intubation. He was intubated. He was also given 2 A of bicarbonate for his wide QRS complex. His QRS did narrow while the bicarbonate was initiated. Potassium comes back at 6.7. Patient also noted to have a lactic acid of 14, 000. He's been given 1 amp of D50 and 10 units of Regular Insulin. The case was discussed with Dr. Navarrete, cloth reeler, who is gracious enough to come down and see the patient. There was a central line placed in his right femoral vein. Initial attempt at the right IJ was unsuccessful as the guidewire would not feed properly. Critical Care Narrative Aggregate critical care time was 60 minutes. Time to perform other separately billable procedures was not included in the critical care time. My time did not include minutes spent treating any other patients simultaneously or on activities that did not directly contribute to the patient's treatment. The services I provided to this patient were to treat and/or prevent clinically significant deterioration that could result in: I provided critical care services requiring my management, as noted below: Chart data review, documentation time, medication orders and management, vital sign assessments/reviewing monitor data, ordering and reviewing lab tests, ordering and interpreting/reviewing x-rays and diagnostic studies, care of the patient and discussion of the patient with the admitting physicians. Procedures Procedure Narrative Performed emergently: INTUBATION: The patient was put in optimal position for the procedure. Rapid sequence intubation was initiated by me using 20 milligrams of etomidate IV and and 100 milligrams of succinylcholine IV. The patient was intubated with a 8.0 cuffed endotracheal tube. Tube placement was confirmed by visualization of the tube and balloon passing through the cords, capnometry and subsequent chest x- ray. Breath sounds were equal and well aerated bilaterally postintubation. No breath sounds over stomach. Patient tolerated procedure well. CENTRAL VENOUS LINE: The site was prepped with Betadine and sterilely draped. It was infiltrated with 1% lidocaine plain. The deep vein was cannulated using normal Seldinger technique. A central line was placed in the right femoral site and secured with simple interrupted suture. The site was sterilely dressed. The patient tolerated the procedure well. Diagnosis Primary Impression: Respiratory failure Additional Impressions: cardiac arrest with ROSC Hyperkalemia Lactic acidosis Sacral decubitus ulcer, stage IV Squamous cell carcinoma DM (diabetes mellitus) Hypotension Admitting Information Admitting Physician Requests: Admit Freddy Carreon MD Jan 31, 2017 10:43
[2017-01-31] MEDS ORDERED: SODIUM BICARBONATE 8.4% INJ 50 MEQ/50 ML SYR IV PUSH ONE ×2 (10:45)
[2017-01-31] MEDS ORDERED: SODIUM CHLOR 0.9% 1000 ML INJ 1,000 ML IV ONE (10:45)
[2017-01-31 10:47] LABS: LACTIC ACID GHOST NOT REPORTABLE
--- NOTE | 2017-01-31 10:51 | RADRPT ---
EXAM DATE/TIME: 01/31/2017 10:37 [facility] COMPARISON: CHEST SINGLE AP, January 27, 2017, 5:51. INDICATIONS : Post intubation. Post compressions. MEDICAL HISTORY : Hypertension. Hypercholesterolemia. CAD. Hepatitis C SURGICAL HISTORY : Appendectomy. ENCOUNTER: Sequela ACUITY: 1 day PAIN SCORE: Non-responsive. LOCATION: Bilateral chest FINDINGS: ET tube is well placed with the tip 4.2 cm from the elizabeth.. There is a stent in the distal esophagus . The heart size is enlarged. There is increased density at the bases bilaterally being worse on the right. Bilateral pleural effusions are present.. CONCLUSION: 1. ET tube in good position. 2. Clinically. 3. Bilateral pleural effusions with partial right. 4. Consolidation/atelectasis at the bases being worse on the right. Washington Chou MD on January 31, 2017 at 10:49 Board Certified Radiologist. This report was verified electronically.
[2017-01-31] MEDS: ASPIRIN EC 81 MG TABEC PO SCH (11:00)
[2017-01-31] MEDS: CLOPIDOGREL 75 MG TAB PO SCH (11:00)
[2017-01-31] MEDS: PANTOPRAZOLE SODIUM 40 MG VIAL IV PUSH SCH (11:00)
[2017-01-31] MEDS ORDERED: CITRSOL4 PO (11:03)
[2017-01-31] MEDS ORDERED: DULC10SU3 RECTAL (11:03)
[2017-01-31] MEDS ORDERED: LUTE1CAP10 PO (11:03)
[2017-01-31] MEDS ORDERED: MILKSUS PO (11:03)
[2017-01-31] MEDS ORDERED: TYLE325T PO (11:03)
[2017-01-31] MEDS ORDERED: ENEMENE5 RECTAL (11:03)
[2017-01-31 11:05] LABS: BLOOD GAS BASE EXCESS -18.6 mmol/L (-2-2); BLOOD GAS CARBOXYHEMOGLOBIN 1.9 % (0-4); BLOOD GAS HCO3 9 mmol/L (22-26); BLOOD GAS METHEMOGLOBIN 0.6 % (0-2); BLOOD GAS O2 HGB SATURATION 53 % (90-100); BLOOD GAS OXYGEN CONTENT 3.2 Vol % (12.0-20.0); BLOOD GAS PCO2 28 mmHg (38-42); BLOOD GAS PO2 44 mmHG (61-120); BLOOD GAS TOTAL HGB 4.1 G/DL (12.0-16.0); CRITICAL VALUE YES; FIO2 100 %; OXYGEN DEVICE VENTILATOR; TEMP CORR TO 98.6; VENT SETTINGS AC/16/550/PEEP5
[2017-01-31] MEDS ORDERED: ASPI81CH37 PO (11:05)
[2017-01-31 11:06] LABS: DRAW SITE RT BRACHIAL; NUMBER OF ARTERIAL PUNCTURES 1; STAT YES; ULNAR PULSE PRESENT
[2017-01-31] MEDS: HYDROCORTISONE SOD SUCCINATE 100 MG VIAL IV PUSH SCH ×3 (11:10→19:59)
--- NOTE | 2017-01-31 11:12 | EKG ---
Date Performed: 01/31/2017 Time Performed: 08:26:22 PTAGE: 61 years EKG: Marked baseline artifact Unclear underlying bradycardia Nonspecific ST-T wave changes which appear unchanged Nonspecific intraventricular conduction defect Cannot rule out inferior IN Would re peat EKG given poor quality DOCTOR: James Stapleton Interpretating Date/Time 01/31/2017 11:11:17
[2017-01-31] MEDS ORDERED: DIATRIZOATE MEGLUM/DIATRIZOATE SOD 9 ML CUP ONE (11:14)
--- NOTE | 2017-01-31 11:20 | EKG ---
Date Performed: 01/31/2017 Time Performed: 10:32:59 PTAGE: 61 years EKG: Baseline artifact is present. This is probably Sinus rhythm with some type of ectopy although this is unclear. LOW QRS VOLTAGE IN EXTREMITY LEADS INCOMPLETE RIG HT BUNDLE BRANCH BLOCK INFERIOR MYOCARDIAL INFARCTION Nonspecific ST and T wave abnormalities NO PREVIOUS TRACING DOCTOR: James Stapleton Interpretating Date/Time 01/31/2017 11:19:25
[2017-01-31] MEDS: VASOPRESSIN INJ 40 UNITS in DEXTROSE 5% IN WATER 100ML INJ 98 ML IV SCH ×2 (11:23)
[2017-01-31] MEDS: INSULIN NovoLIN REGULAR SUPPLEMENTAL SCALE SQ SCH ×4 (12:15→21:58)
[2017-01-31 12:22] LABS: BACTERIA, URINE OCC /hpf; BLOOD, URINE MOD (NEG); COMMENT (UR) CATH-CULTURE IND; CULTURE IF INDICATED CATH CULTURE IND; GLUCOSE,URINE NEG (NEG); KETONE, URINE NEG (NEG); MUCUS URINE FEW /lpf (OCC); NITRITE,URINE NEG (NEG); SQUAMOUS EPITHELIAL CELL URINE <1 /hpf (0-5); URINE COLOR YELLOW (YELLW/STRAW)
--- NOTE | 2017-01-31 13:24 | RADRPT ---
EXAM DATE/TIME: 01/31/2017 12:52 [facility] COMPARISON: CT ABDOMEN & PELVIS W CONTRAST, November 30, 2016, 1:35. INDICATIONS : Lactic acidemia. ORAL CONTRAST: Prescribed oral contrast ingested. RADIATION DOSE: 19.46 CTDIvol (mGy) ; Combined studies MEDICAL HISTORY : Hypertension. Carcinoma, lung. Hepatitis C. SURGICAL HISTORY : Appendectomy. ENCOUNTER: Initial ACUITY: 1 day PAIN SCALE: Non-responsive LOCATION: Bilateral abdomen TECHNIQUE: Volumetric scanning of the abdomen and pelvis was performed. Using automated exposure control and ad justment of the mA and/or kV according to patient size, radiation dose was kept as low as reasonably achievable to obtain optimal diagnostic quality images. DICOM format image data is available electro nically for review and comparison. FINDINGS: LOWER LUNGS: Moderate bilateral pleural effusions with associated bibasilar airspace consolidation. Distal esophag eal stent partially imaged. LIVER: Liver demonstrates homogeneous density with slight nodular contour similar to prior exam. No gross ma ss or hepatic ductal dilatation. Increased density in the gallbladder consistent with vicarious excre tion of contrast. SPLEEN: Normal size without lesion. PANCREAS: Within normal limits. KIDNEYS: Normal in size and shape. There is no mass, stone, or hydronephrosis. ADRENAL GLANDS: Stable in appearance. VASCULAR: Mild atherosclerotic calcifications of the infrarenal abdominal aorta. BOWEL/MESENTERY: Recent oral contrast is primarily noted throughout the stomach. There is an NGT which terminates just in the GE junction. Small bowel are normal in caliber without evidence for pneumatosis or free air. There is contrast noted throughout the colon likely from prior contrast administration. Colon appears grossly unremarkable. There is no drainable fluid collection or significant free fluid in the abdome n. ABDOMINAL WALL: Within normal limits. RETROPERITONEUM: There is no lymphadenopathy. BLADDER: Bladder is largely decompressed secondary to Saxena catheter. REPRODUCTIVE: Within normal limits. INGUINAL: Small fat containing bilaterally were hernias. MUSCULOSKELETAL: Within normal limits for patient age. CONCLUSION: 1. No definite CT findings to explain patient's lactic acidosis. Specifically, no evidence for bowel infarction or perforation. 2. Moderate bilateral pleural effusions with associated bilateral lower lobe airspace consolidation. 3. Diffusely prominent distal esophagus with distal esophageal stent in place. NGT courses through th e stent with tip just beyond the GE junction. 4. Cirrhotic appearing liver without evidence for significant ascites or focal drainable fluid collec tion. Escobar Bozorgmanesh, MD on January 31, 2017 at 13:08 Board Certified Radiologist. This report was verified electronically.
--- NOTE | 2017-01-31 13:30 | RADRPT ---
EXAM DATE/TIME: 01/31/2017 12:52 [facility] COMPARISON: CT THORAX W/O CONTRAST, December 30, 2016, 10:56. INDICATIONS : Respiratory distress. RADIATION DOSE: 19.46 CTDIvol (mGy) ; Combined studies MEDICAL HISTORY : Hypertension. Carcinoma, lung. Congestive heart failure. SURGICAL HISTORY : Appendectomy. ENCOUNTER: Initial ACUITY: 1 day PAIN SCALE: Non-responsive LOCATION: Bilateral chest TECHNIQUE: Volumetric scanning of the chest was performed. Using automated exposure control and adjustment of t he mA and/or kV according to patient size, radiation dose was kept as low as reasonably achievable to obtain optimal diagnostic quality images. DICOM format image data is available electronically for r eview and comparison. Follow-up recommendations for detected pulmonary nodules are based at a minimum on nodule size and pa tient risk factors according to Fleischner Society Guidelines. FINDINGS: LUNGS: Bibasilar airspace consolidation adjacent to pleural effusions. Patchy groundglass opacities in the l ingula and right middle lobe. PLEURAE: Moderate-sized bilateral pleural effusions. MEDIASTINUM: Patient is intubated with ETT in good position. There is an NGT coursing through a mid to distal esop hageal stent. There is diffuse soft tissue prominence in the mid to distal esophagus consistent with history of esophageal CA. Administered contrast extends to the proximal to mid esophagus. Moderate to severe coronary artery calcifications. The heart is grossly unremarkable without significant pericar dial effusion. AXILLAE: Within normal limits. No lymphadenopathy. MUSCULOSKELETAL: Degenerative spondylosis of the gastric spine. No significant focal pleural-parenchymal opacities. CONCLUSION: 1. Moderate bilateral pleural effusions with associated bibasilar airspace consolidation. 2. Mild patchy airspace disease in the lingula and right middle lobe. 3. Diffuse soft tissue prominence of the mid to distal esophagus with esophageal stent in place consi stent with history of esophageal CA. Administered contrast extends to the proximal esophagus. 4. ETT in good position. NGT just be in the GE junction. 5. Prominent coronary artery calcifications. Escobar Joiner MD on January 31, 2017 at 13:23 Board Certified Radiologist. This report was verified electronically.
--- NOTE | 2017-01-31 13:53 | PD.ID.CON ---
History of Present Illness Service ID Consult Requested By Dr Saucedo Reason for Consult sepsis Primary Care Physician Unknown Diagnoses: History of Present Illness pt is a 61 yo male with esophageal cancer sp stent placemnt and Pseudomonas PNA who was d/c'd yday presented today in shock At the [facility] of previous admission pt also has prolonged MSSA bactermia originated from infected Infusaport, which resolved when port was removed he was treted with ceazoline On presentation he was bradycardic, hypotensive and hypoxic with lactic acidosis of 12.5 Pt was int'd in ER placend on vent, started on presosrs, bicarb drip He somewhat stabilised at the time I saw the pt, his pressors were weaning down , with FiO2 down to 45, still requring bicarb drip His CT did not showed acute intraabd pathology, but did show b/l consolidations Review of Systems ROS Limitations: Clinical Condition, Intubated, Altered Mental Status, Unresponsive Past Family Social History Allergies: Coded Allergies: penicillin G (Unverified Allergy, Mild, Hives, 12/30/16) Past Medical History Hypertension Hyperlipidemia CAD Diabetes 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 and he had good margins 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 Smokes 1ppd. Negative for drugs. Physical Exam Vital Signs Vital Signs Date Time Temp Pulse Resp B/P (MAP) Pulse Ox O2 Delivery O2 Flow Rate FiO2 01/31/17 13:29 96 80 01/31/17 13:10 100 100 01/31/17 12:55 01/31/17 12:40 100 100 01/31/17 12:34 82 113/53 (73) 100 Ventilator 01/31/17 12:04 83 17 120/56 (77) 100 Ventilator 100 01/31/17 11:24 84 22 115/56 (75) 100 Ventilator 100 01/31/17 11:23 85 93/49 01/31/17 10:13 70 20 89/41 (57) 01/31/17 09:56 62 25 91/39 (56) 98 Ventilator 100 01/31/17 09:49 64 58/35 (43) 01/31/17 09:35 59 19 71/35 (47) 100 Ventilator 100 01/31/17 09:30 58 16 67/29 (42) 100 Ventilator 100 01/31/17 09:19 59 68/35 (46) 01/31/17 09:14 59 71/32 (45) 100 Ventilator 100 01/31/17 09:05 96 100 01/31/17 09:00 104 16 98/45 (62) 96 Room Air 01/31/17 08:56 110 18 114/97 (103) 97 Auto-Vent 01/31/17 08:56 100 01/31/17 08:55 108 66/40 01/31/17 08:49 109 24 84/49 (61) 95 01/31/17 08:15 97.6 54 28 82/39 (53) 96 Non-Rebreather 100 01/31/17 08:15 100 Non-Rebreather 100 01/31/17 08:15 97.6 54 28 82/39 (53) 100 Physical Exam CONSTITUTIONAL/GENERAL: This is an adequately nourished patient, sedated, int[facility] TUBES/LINES/DRAINS: SKIN: No jaundice, rashes, or lesions. Skin temperature appropriate. Not diaphoretic. HEAD: Atraumatic. Normocephalic. EYES: Pupils equal and round and reactive. . No scleral icterus. No injection or drainage. Fundi not examined. ENT: Hearing not tested Nose without bleeding or purulent drainage. Orally intubated, mucosae w/o visible erythema, exudates, masses, or lesions. NECK: Trachea midline. Supple, nontender. CARDIOVASCULAR: Regular rate and rhythm Harsh systolic murmur on base cw , no gallops, or rubs. No JVD. Peripheral pulses symmetric. Diminished refill symmetrically RESPIRATORY/CHEST: Symmetric, respirations. Clear to auscultation. Breath sounds equal bilaterally. No wheezes, rales, or rhonchi. GASTROINTESTINAL: Abdomen soft, non-tender, nondistended. No hepato-splenomegaly , or palpable masses. No guarding. Bowel sounds present. GENITOURINARY: Without palpable bladder distension. Saxena catheter in place w smalll amount of urine MUSCULOSKELETAL: Extremities without clubbing, cyanosis, or edema. No joint tenderness or effusion noted. No calf tenderness. No mottling or clubbing. LYMPHATICS: No palpable cervical or supraclavicular adenopathy. NEUROLOGICAL: sedated. Unresponsive PSYCHIATRIC: unable to assess Laboratory Laboratory Tests Test 01/31/17 08:30 01/31/17 10:49 01/31/17 11:40 White Blood Count 12.5 Red Blood Count 2.98 Hemoglobin 8.3 Hematocrit 27.9 Mean Corpuscular Volume 93.3 Mean Corpuscular Hemoglobin 27.8 Mean Corpuscular Hemoglobin Concent 29.8 Red Cell Distribution Width 19.1 Platelet Count 288 Mean Platelet Volume 8.7 Neutrophils (%) (Auto) 81.8 Lymphocytes (%) (Auto) 10.9 Monocytes (%) (Auto) 7.2 Eosinophils (%) (Auto) 0.0 Basophils (%) (Auto) 0.1 Neutrophils # (Auto) 10.3 Lymphocytes # (Auto) 1.4 Monocytes # (Auto) 0.9 Eosinophils # (Auto) 0.0 Basophils # (Auto) 0.0 CBC Comment DIFF FINAL Differential Comment Prothrombin Time 14.3 Prothromb Time International Ratio 1.3 Activated Partial Thromboplast Time 27.1 Blood Urea Nitrogen 33 Creatinine 1.71 Random Glucose 137 Total Protein 7.4 Albumin 2.7 Calcium Level 8.4 Alkaline Phosphatase 109 Aspartate Amino Transf (AST/SGOT) 84 Alanine Aminotransferase (ALT/SGPT) 22 Total Bilirubin 0.9 Sodium Level 125 Potassium Level 6.9 Chloride Level 90 Carbon Dioxide Level 16.2 Anion Gap 19 Estimat Glomerular Filtration Rate 41 Lactic Acid Level 12.5 Total Creatine Kinase 90 Troponin I 0.12 Blood Gas Puncture Site RT BRACHIAL Blood Gas Patient Temperature 98.6 Blood Gas HCO3 9 Blood Gas Base Excess -18.6 Blood Gas Oxygen Saturation 53 Arterial Blood pH 7.13 Arterial Blood Partial Pressure CO2 28 Arterial Blood Partial Pressure O2 44 Arterial Blood Oxygen Content 3.2 Arterial Blood Carboxyhemoglobin 1.9 Arterial Blood Methemoglobin 0.6 Blood Gas Hemoglobin 4.1 Oxygen Delivery Device VENTILATOR Blood Gas Ventilator Setting AC/16/550/PEEP5 Blood Gas Inspired Oxygen 100 Urine Color YELLOW Urine Turbidity CLOUDY Urine pH 6.0 Urine Specific Holcomb 1.017 Urine Protein 100 Urine Glucose (UA) NEG Urine Ketones NEG Urine Occult Blood MOD Urine Nitrite NEG Urine Bilirubin NEG Urine Urobilinogen LESS THAN 2.0 Urine Leukocyte Esterase MOD Urine RBC 9 Urine WBC 14 Urine WBC Clumps RARE Urine Squamous Epithelial Cells <1 Urine Amorphous Sediment RARE Urine Bacteria OCC Urine Mucus FEW Microscopic Urinalysis Comment CATH-CULTURE IND Date/Time Source Procedure Growth Status 01/31/17 08:35 Blood Peripheral Aerobic Blood Culture Pending Received 01/31/17 08:35 Blood Peripheral Anaerobic Blood Culture Pending Received 01/31/17 11:40 Urine Clean Catch Urine Culture Pending Received Result Diagram: 01/31/17 0830 01/31/17 0830 Imaging Last Impressions Chest X-Ray 01/31/17827 Signed Impressions: Service Date/Time: Tuesday, January 31, 2017 10:37 - CONCLUSION: 1. ET tube in good position. 2. Clinically. 3. Bilateral pleural effusions with partial right. 4. Consolidation/atelectasis at the bases being worse on the right. Washington Chou MD Chest CT 01/31/17 0000 Signed Impressions: Service Date/Time: Tuesday, January 31, 2017 12:52 - CONCLUSION: 1. Moderate bilateral pleural effusions with associated bibasilar airspace consolidation. 2. Mild patchy airspace disease in the lingula and right middle lobe. 3. Diffuse soft tissue prominence of the mid to distal esophagus with esophageal stent in place consistent with history of esophageal CA. Administered contrast extends to the proximal esophagus. 4. ETT in good position. NGT just be in the GE junction. 5. Prominent coronary artery calcifications. Escobar Joiner MD Abdomen/Pelvis CT 01/31/17 0000 Signed Impressions: Service Date/Time: Tuesday, January 31, 2017 12:52 - CONCLUSION: 1. No definite CT findings to explain patient's lactic acidosis. Specifically, no evidence for bowel infarction or perforation. 2. Moderate bilateral pleural effusions with associated bilateral lower lobe airspace consolidation. 3. Diffusely prominent distal esophagus with distal esophageal stent in place. NGT courses through the stent with tip just beyond the GE junction. 4. Cirrhotic appearing liver without evidence for significant ascites or focal drainable fluid collection. Escobar Joiner MD Assessment and Plan Assessment and Plan Esophafgeal ca sp stent Recent Pseudomonas PNA Shock, sepsis, lactic acidosis, leukocytosis > 22K on presentation - his lactic acidemia improved Acute VDRF PNA PCN allery but tolearted cefepime OK on previous admission Recent MSSA sepsis, aw Infusaport (removed ) Pt is critically ill,unstable cont vanco dc azactam start cefepime cont levaquine add micafungin add IV flagyl Discussed Condition With Meghan Jacinto MD Jan 31, 2017 13:53
[2017-01-31 14:07] LABS: BLOOD GAS BASE EXCESS -11.1 mmol/L (-2-2); BLOOD GAS CARBOXYHEMOGLOBIN 2.7 % (0-4); BLOOD GAS HCO3 14 mmol/L (22-26); BLOOD GAS METHEMOGLOBIN 0.8 % (0-2); BLOOD GAS O2 HGB SATURATION 96 % (90-100); BLOOD GAS OXYGEN CONTENT 10.1 Vol % (12.0-20.0); BLOOD GAS PCO2 31 mmHg (38-42); BLOOD GAS PO2 130 mmHg (61-120); BLOOD GAS TOTAL HGB 7.3 G/DL (12.0-16.0); CRITICAL VALUE YES; OXYGEN DEVICE VENTILATOR; TEMP CORR TO 98.6
[2017-01-31 14:08] LABS: DRAW SITE LT BRACHIAL; FIO2 50 %; NUMBER OF ARTERIAL PUNCTURES 1; STAT NO; VENT SETTINGS A/C 500/16/5PEEP
[2017-01-31 14:09] LABS: AUTOMATED NEUTROPHIL # 19.5 TH/MM3 (1.8-7.7); BASOPHIL % 0.2 % (0.0-2.0); EOSINOPHIL % 0.1 % (0.0-4.0); HEMATOCRIT 23.7 % (39.0-51.0); LYMPH % 3.1 % (9.0-44.0); LYMPHOCYTE # 0.7 TH/MM3 (1.0-4.8); MEAN CELL VOLUME 92.5 FL (80.0-100.0); MEAN CORPUSCULAR HGB CONC 30.3 % (32.0-36.0); MONO % 8.2 % (0.0-8.0); NEUT % 88.4 % (16.0-70.0); PLATELET COUNT 215 TH/MM3 (150-450); RED BLOOD COUNT 2.57 MIL/MM3 (4.50-5.90); RED CELL DISTRIBUTION WIDTH 18.9 % (11.6-17.2); WHITE BLOOD COUNT 22.1 TH/MM3 (4.0-11.0)
[2017-01-31 14:11] LABS: HEMO FLAGS AUTO DIFF
--- NOTE | 2017-01-31 14:22 | MH ---
cc: SHIRLENE CULLEN M.D. DATE OF ADMISSION: 01/31/2017 HISTORY OF PRESENT ILLNESS: The patient is a 61-year-old male with multiple comorbidities which include esophageal adenocarcinoma status post stent placement in December, coronary artery disease with previous stent placement in the proximal circumflex, squamous cell carcinoma of the skin and anemia and a history of atrial flutter. The patient presented to the [facility] Emergency Department from a local longterm for hypoxemia and severe respiratory distress. On arrival to the emergency room, the patient was hypotensive with a systolic blood pressure in the 80s, bradycardic with heart rate in the 50s and had a temperature of 97.6. Due to severe respiratory distress, he was subsequently intubated and placed on full mechanical ventilation. In addition, Versed drip was initiated. In the emergency room, the patient was found to have wide complex tachycardia and his laboratory data showed severe hyperkalemia with a potassium level of 6.9 and lactic acidosis with a lactic acid level of 12.5. The patient went into PEA arrest in the emergency room and he received epinephrine, bicarb with successful return of spontaneous circulation. He received approximately 1.5 liters of crystalloids and was started on Levophed drip which is currently 20 mics. For hyperkalemia, the patient was given 2 ampules of bicarb, calcium gluconate and 10 units of IV insulin D50 and placed on bicarb drip. A chest x-ray post-intubation showed ET tube above the elizabeth, bilateral pleural effusions with consolidation and atelectasis at the bases right greater than left. An ABG post intubation appears venous blood gas which showed a pH of 7.13, CO2 28, pAO2 44, bicarb of 9, saturation 53% with a base excess of -18.6. This was on assist control ventilation rate of 16, tidal volume 550, PEEP of 5 and 100% FIO2. The patient is scheduled for CT scan of the abdomen and pelvis along with CT scan of the chest. He was discharged from the hospital yesterday after he was admitted on December 24. On his previous admission, the patient had an Pseudomonas pneumoniae. In addition, he had MSSA bacteremia back in November. PAST MEDICAL HISTORY: He had a past medical history significant for: 1. Esophageal adenocarcinoma. 2. Esophageal stricture with stent placement. 3. Squamous cell carcinoma of the skin. 4. Coronary artery disease with previous stent in the proximal circumflex. 5. Anemia. 6. History of atrial flutter. PAST SURGICAL HISTORY: 1. Previous coronary stent placement. 2. Previous esophageal stent placement. SOCIAL HISTORY: The patient is a longterm resident. He has a history of alcohol and tobacco use. ALLERGIES: PENICILLIN-G. REPORTED MEDICATIONS: 1. Prednisone. 2. Protonix. 3. Sucralfate. 4. Lasix. 5. Restoril. 6. Adult aspirin. 7. Diltiazem. 8. Metoprolol. 9. Amiodarone. 10. Plavix. 11. DuoNeb. 12. Vitamin B12. 13. Levothyroxine. 14. Metformin. FAMILY HISTORY: Noncontributory. REVIEW OF SYSTEMS: The review of systems is as per the history of present illness, and the rest of the review of systems is unobtainable as the patient is intubated. PHYSICAL EXAMINATION: GENERAL: A 61-year-old male critically ill, intubated on Levophed in septic shock. VITAL SIGNS: Temperature 97.6, pulse currently 85, respiratory rate 17, blood pressure currently 120/56, saturation 100%. VENT SETTINGS: Assist control, rate of 16. Tidal volume 550. PEEP of 5. 100% FIO2. HEAD, EYES, EARS, NOSE, THROAT: Normocephalic and atraumatic. Pupils equal, round and reactive to light and accommodation. Extraocular muscles intact. Conjunctivae are pink. Nonicteric sclerae. Oral mucosa within normal limits. NECK: The neck is supple. No jugular venous distention, adenopathy or thyromegaly. Trachea in the midline. CARDIOVASCULAR: Regular rate and rhythm. Normal S1-S2. No murmurs, rubs or gallops noted. PULMONARY: Bilateral equal air entry with coarse breath sounds louder on the left. ABDOMEN: The abdomen is soft, obese, nontender and no distention. Positive bowel sounds. EXTREMITIES: No cyanosis, clubbing and 3+ edema. NEUROLOGIC: Intubated and sedated. LABORATORY DATA: Sodium 125, potassium 6.9, chloride 90, carbon dioxide 16, BUN 33, creatinine 1.71, glucose 137, lactic acid 12.5, total bilirubin 0.9, AST 84, ALT 22, alkaline phosphatase 109. Troponin 0.12. WBCs 12.5, hemoglobin 8.3, hematocrit 27, platelet count 288,000. INR 1.3. PT 14.3. PTT 27.1. IMAGING STUDIES: Chest x-ray shows ET tube above the elizabeth, consolidation / atelectasis at the bases, right greater than left, with pleural effusion. EKGS: EKG at 8:26 this morning showed bradycardia, nonspecific S-T wave changes, interventricular conduction defect. Repeat EKG at 10:30 showed sinus rhythm, low Q-R-S voltage. IMPRESSION: 1. Vent-dependent respiratory failure. 2. Septic shock. 3. Hyperkalemia. 4. Acute kidney injury. 5. Lactic acidemia and hyponatremia. 6. Anion gap metabolic acidosis. 7. Elevated AST. 8. Leukocytosis. 9. Anemia. 10. Possible pneumonia. 11. History of coronary artery disease with stent placement. 12. History of esophageal CA. 13. Squamous cell carcinoma of the skin. RECOMMENDATIONS: 1. Place on Fentanyl drip if needed for sedation and vent synchrony with a RAST score of -2. 2. Continue with vent support and maintain saturations above 92%. 3. Bronchodilators in the form of DuoNeb q. 6 and will initiate intensive care unit vent bundle. 4. Place on stress dose steroids, hydrocortisone 100 milligrams IV q. eight. 5. The patient is for a CT scan of the chest without contrast for further evaluation of the pulmonary parenchyma. 6. Repeat ABG now. 7. Continue with Levophed. Add vasopressin. Maintain MAP greater than 65 mmHg. 8. Serial lactic acid monitoring until cleared and continue with bicarbonate drip. 9. Echocardiogram from January 07 showed an ejection fraction of 60% to 65%. 10. Monitor renal function, intakes and outputs and avoid nephrotoxins. 11. Hyperkalemia in the emergency room treated with IV insulin D50 calcium bicarbonate. In addition, will place on D5W with 3 amps of bicarbonate at 125 mL/hour. Will consult the nephrology service. 12. Keep NPO for now. 13. Monitor liver function tests. 14. The patient is scheduled for CT abdomen and pelvis without contrast. 15. Place on Protonix 40 milligrams IV daily for GI prophylaxis. 16. Will place on broad-spectrum antibiotics in the form of Levaquin, Aztreonam and will give one dose of Vancomycin. 17. Monitor for signs of infection which include fever and WBCs. 18. Follow up on blood and urine cultures. 19. In addition, will obtain a sputum culture with Gram stain and will check a Strep pneumoniae and Legionella urinary antigen. 20. Consult infectious disease service. 21. Follow up on CT scan of the chest as ordered. 22. Monitor CBC for signs of bleeding. 23. Place on sliding scale insulin with Accu-Chek q. 4 hours for glycemic control. 24. GI prophylaxis with Protonix 40 milligrams daily. 25. DVT prophylaxis with SCDs. 26. A right femoral central line was placed by the emergency department. 27. The patient is critically ill with respiratory failure, septic shock on pressors, acute kidney injury, hyperkalemia with EKG changes, lactic acidemia and renal failure. Further recommendations will be based on the hospital course. CRITICAL CARE TIME: Forty (40) minutes excluding procedures. MD DAMARIS Bush/UZAIR /12:30 PM /12:57 PM
[2017-01-31 14:29] LABS: BICARBONATE 17.5 MEQ/L (21.0-32.0); POTASSIUM 5.1 MEQ/L (3.5-5.1)
--- NOTE | 2017-01-31 14:38 | PD.CONS ---
HPI Service Nephrology Consult Requested By Reason for Consult Acute kidney injury, hyperkalemia. Primary Care Physician Unknown History of Present Illness Mr. 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 He was recently in this facility and had a prolonged stay. He suffered NSTEMI, and underwent stent placement to left Circumflex artery. He has history of atrial fibrillation. He was noted to have a large soft tissue mass in the distal esophagus, concerning for cancer. He underwent esophageal stent placement. He also had developed sepsis and Pseudomonas pneumonia. Patient had cardiac tamponade for which he underwent pericardiocentesis on . Patient has been brought back to the hospital with hypotension, and hypoxia. Reportedly his SBP was 70 in his facility. He proceeded to have PEA cardiac arrest in the ER. He was intubated. He was noted to have metabolic acidosis and hyperkalemia. He has been given Calcium gluconate (was bradycardic), insulin and dextrose as well as 100 mEq of NaHCO3. He was given 2.5 liters of IVF in the ER. He was on Vasopressin and Levophed for BP support. He was unresponsive. Review of Systems ROS Limitations: Clinical Condition, Intubated Past Family Social History Allergies: Coded Allergies: penicillin G (Unverified Allergy, Mild, Hives, 12/30/16) Past Medical History Esophageal cancer History of squamous cell cancer of the parotid, s/p surgery. Cirrhosis of the liver: alcoholic. COPD Tobacco abuse. Type 2 diabetes mellitus Hypothyroidism. Reported Medications Santyl (Collagenase) 250 Unit/Gram Oin 1 Applic TOPICAL DAILY 30 Days Potassium Chloride ER (Potassium Chloride) 20 Meq Tab 20 Meq PO BID Prednisone 5 Mg Tab 5 Mg PO Q48H Pantoprazole (Pantoprazole Sodium) 40 Mg Tab 40 Mg PO Q12HR Sucralfate Liq (Sucralfate) 1 Gram/10 Ml Bea 1 Gm PO ACHS 30 Days Polyethylene Glycol 3350 Powder (Polyethylene Glycol) 17 Gram Pow 17 Gm PO DAILY Furosemide 40 Mg Tab 40 Mg PO BID@09,18 Restoril (Temazepam) 15 Mg Cap 15 Mg PO HS PRN Ativan (Lorazepam) 0.5 Mg Tab 0.5 Mg PO Q8H PRN Adult Aspirin EC Low Strength (Aspirin) 81 Mg Tabec 162 Mg PO DAILY Diltiazem (Diltiazem HCl) 90 Mg Tab 90 Mg PO Q6H Metoprolol Tartrate 25 Mg Tab 25 Mg PO Q8HR Amiodarone (Amiodarone HCl) 200 Mg Tab 200 Mg PO Q12HR Plavix (Clopidogrel Bisulfate) 75 Mg Tab 75 Mg PO DAILY Duoneb (Ipratropium-Albuterol Neb) 0.5-2.5 Mg/3 Ml Neb 1 Ampule INH Q2HR NEB PRN Oxycodone (Oxycodone HCl) 5 Mg Tab 5 Mg PO Q4H PRN Reported B-12 (Cyanocobalamin) 1,000 Mcg Subl 1,000 Mcg PO DAILY Vitamin D3 (Cholecalciferol) 1,000 Unit Tab 1,000 Units PO DAILY Levothyroxine (Levothyroxine Sodium) 50 Mcg Tab 50 Mcg PO DAILY Atorvastatin (Atorvastatin Calcium) 40 Mg Tab 40 Mg PO HS Metformin (Metformin HCl) 1,000 Mg Tab 1,000 Mg PO BIDPC With meals Lantus Inj (Insulin Glargine) 1,000 Unit/10 Ml Vial 40 Units SQ HS [Eye Vitamin] 1 Tab PO DAILY Active Ordered Medications Current Medications Medications (Trade) Dose Ordered Sig/Geovanny Route Start Time Stop Time Status Last Admin (Protonix Inj) 40 mg DAILY IV PUSH 01/31/17 11:00 (Duoneb Neb) 1 ampule Q6HR NEB INH 01/31/17 10:00 01/31/17 10:00 Miscellaneous Information 1 Q361D XX 01/31/17 10:00 (Chlorhexidine 2% Cloth) 3 pack Taper DAILY@04 TOP 02/01/17 04:00 01/28/18 03:59 (Chlorhexidine 2% Cloth) 3 pack UNSCH PRN TOP 01/31/17 10:00 (Rere-Colace) 1 tab BID PO 01/31/17 21:00 (Milk Of Magnesia Liq) 30 ml Q12H PRN PO 01/31/17 10:00 (Senokot) 17.2 mg Q12H PRN PO 01/31/17 10:00 (Dulcolax Supp) 10 mg DAILY PRN RECTAL 01/31/17 10:00 (Lactulose Liq) 30 ml DAILY PRN PO 01/31/17 10:00 Sodium Bicarbonate 150 meq/Dextrose 1,150 ml @ 125 mls/hr Q9H12M IV 01/31/17 10:00 01/31/17 11:28 (D50w (Vial) Inj) 50 ml UNSCH PRN IV 01/31/17 10:00 (Glucagon Inj) 1 mg UNSCH PRN OTHER 01/31/17 10:00 (NovoLIN R SUPPLEMENTAL SCALE) 1 Q4H SQ 01/31/17 10:00 (SoluCORTEF INJ) 100 mg Q8HR IV PUSH 01/31/17 11:00 01/31/17 11:10 (Ecotrin Ec) 162 mg DAILY PO 01/31/17 11:00 (Plavix) 75 mg DAILY PO 01/31/17 11:00 Levofloxacin/ Dextrose 100 ml @ 100 mls/hr Q24H IV 01/31/17 11:00 Pharmacy Profile Note 0 ml @ 0 mls/hr UNSCH OTHER 01/31/17 10:15 Vasopressin 40 units/Dextrose 100 ml @ 6 mls/hr [id number] IV 01/31/17 10:40 01/31/17 11:23 Aztreonam 1000 mg/ Sodium Chloride 100 ml @ 200 mls/hr Q8H IV 01/31/17 11:00 Vancomycin HCl 1600 mg/Sodium Chloride 516 ml @ 250 mls/hr Q24H IV 01/31/17 12:00 Miscellaneous Information SPECIFIC LAB TO BE DRAWN:VANCO... ONCE ONCE .XX 02/02/17 11:45 02/02/17 11:46 Fentanyl Citrate 250 ml @ 5 mls/hr TITRATE PRN IV 01/31/17 12:45 Family History not available. Social History history of tobacco abuse and ETOH abuse according to the previous notes. Physical Exam Vital Signs Vital Signs Date Time Temp Pulse Resp B/P (MAP) Pulse Ox O2 Delivery O2 Flow Rate FiO2 01/31/17 13:29 96 80 01/31/17 13:10 100 100 01/31/17 12:55 01/31/17 12:40 100 100 01/31/17 12:34 82 113/53 (73) 100 Ventilator 01/31/17 12:04 83 17 120/56 (77) 100 Ventilator 100 01/31/17 11:24 84 22 115/56 (75) 100 Ventilator 100 01/31/17 11:23 85 93/49 01/31/17 10:13 70 20 89/41 (57) 01/31/17 09:56 62 25 91/39 (56) 98 Ventilator 100 01/31/17 09:49 64 58/35 (43) 01/31/17 09:35 59 19 71/35 (47) 100 Ventilator 100 01/31/17 09:30 58 16 67/29 (42) 100 Ventilator 100 01/31/17 09:19 59 68/35 (46) 01/31/17 09:14 59 71/32 (45) 100 Ventilator 100 01/31/17 09:05 96 100 01/31/17 09:00 104 16 98/45 (62) 96 Room Air 01/31/17 08:56 110 18 114/97 (103) 97 Auto-Vent 01/31/17 08:56 100 01/31/17 08:55 108 66/40 01/31/17 08:49 109 24 84/49 (61) 95 01/31/17 08:15 97.6 54 28 82/39 (53) 96 Non-Rebreather 100 01/31/17 08:15 100 Non-Rebreather 100 01/31/17 08:15 97.6 54 28 82/39 (53) 100 Physical Exam GENERAL: He is intubated, unresponsive. SKIN: Warm and dry. HEAD: Normocephalic. EYES: No scleral icterus. No injection or drainage. NECK: Supple, trachea midline. No JVD or lymphadenopathy. CARDIOVASCULAR: Regular rate and rhythm 2/6 systolic murmur. RESPIRATORY: Breath sounds equal bilaterally. No accessory muscle use. GASTROINTESTINAL: Abdomen soft, non-tender, nondistended. MUSCULOSKELETAL: No cyanosis, 3 + edema. BACK: Nontender without obvious deformity. No CVA tenderness. Laboratory Laboratory Tests Test 01/31/17 08:30 01/31/17 10:49 01/31/17 11:40 01/31/17 13:35 White Blood Count 12.5 22.1 Red Blood Count 2.98 2.57 Hemoglobin 8.3 7.2 Hematocrit 27.9 23.7 Mean Corpuscular Volume 93.3 92.5 Mean Corpuscular Hemoglobin 27.8 28.0 Mean Corpuscular Hemoglobin Concent 29.8 30.3 Red Cell Distribution Width 19.1 18.9 Platelet Count 288 215 Mean Platelet Volume 8.7 8.5 Neutrophils (%) (Auto) 81.8 88.4 Lymphocytes (%) (Auto) 10.9 3.1 Monocytes (%) (Auto) 7.2 8.2 Eosinophils (%) (Auto) 0.0 0.1 Basophils (%) (Auto) 0.1 0.2 Neutrophils # (Auto) 10.3 19.5 Lymphocytes # (Auto) 1.4 0.7 Monocytes # (Auto) 0.9 1.8 Eosinophils # (Auto) 0.0 0.0 Basophils # (Auto) 0.0 0.0 CBC Comment DIFF FINAL AUTO DIFF Differential Comment Prothrombin Time 14.3 Prothromb Time International Ratio 1.3 Activated Partial Thromboplast Time 27.1 Blood Urea Nitrogen 33 Creatinine 1.71 Random Glucose 137 Total Protein 7.4 Albumin 2.7 Calcium Level 8.4 Alkaline Phosphatase 109 Aspartate Amino Transf (AST/SGOT) 84 Alanine Aminotransferase (ALT/SGPT) 22 Total Bilirubin 0.9 Sodium Level 125 Potassium Level 6.9 Chloride Level 90 Carbon Dioxide Level 16.2 Anion Gap 19 Estimat Glomerular Filtration Rate 41 Lactic Acid Level 12.5 Total Creatine Kinase 90 Troponin I 0.12 Blood Gas Puncture Site RT BRACHIAL Blood Gas Patient Temperature 98.6 Blood Gas HCO3 9 Blood Gas Base Excess -18.6 Blood Gas Oxygen Saturation 53 Arterial Blood pH 7.13 Arterial Blood Partial Pressure CO2 28 Arterial Blood Partial Pressure O2 44 Arterial Blood Oxygen Content 3.2 Arterial Blood Carboxyhemoglobin 1.9 Arterial Blood Methemoglobin 0.6 Blood Gas Hemoglobin 4.1 Oxygen Delivery Device VENTILATOR Blood Gas Ventilator Setting AC/16/550/PEEP5 Blood Gas Inspired Oxygen 100 Urine Color YELLOW Urine Turbidity CLOUDY Urine pH 6.0 Urine Specific [place] 1.017 Urine Protein 100 Urine Glucose (UA) NEG Urine Ketones NEG Urine Occult Blood MOD Urine Nitrite NEG Urine Bilirubin NEG Urine Urobilinogen LESS THAN 2.0 Urine Leukocyte Esterase MOD Urine RBC 9 Urine WBC 14 Urine WBC Clumps RARE Urine Squamous Epithelial Cells <1 Urine Amorphous Sediment RARE Urine Bacteria OCC Urine Mucus FEW Microscopic Urinalysis Comment CATH-CULTURE IND Test 01/31/17 14:00 Blood Gas Puncture Site LT BRACHIAL Blood Gas Patient Temperature 98.6 Blood Gas HCO3 14 Blood Gas Base Excess -11.1 Blood Gas Oxygen Saturation 96 Arterial Blood pH 7.28 Arterial Blood Partial Pressure CO2 31 Arterial Blood Partial Pressure O2 130 Arterial Blood Oxygen Content 10.1 Arterial Blood Carboxyhemoglobin 2.7 Arterial Blood Methemoglobin 0.8 Blood Gas Hemoglobin 7.3 Oxygen Delivery Device VENTILATOR Blood Gas Ventilator Setting A/C 500/16/5PEEP Blood Gas Inspired Oxygen 50 Date/Time Source Procedure Growth Status 01/31/17 08:35 Blood Peripheral Aerobic Blood Culture Pending Received 01/31/17 08:35 Blood Peripheral Anaerobic Blood Culture Pending Received 01/31/17 13:35 Urine Catheterized Urine Legionella Antigen Pending Received 01/31/17 13:35 Urine Catheterized Urine Streptococcus pneumoniae Antigen (M Pending Received Result Diagram: 01/31/17 1335 01/31/17 0830 Assessment and Plan Problem List: (1) Acute kidney injury ICD Codes: N17.9 - Acute kidney failure, unspecified Plan: This is perhaps due to ATN from hypotension or sepsis and release of inflammatory mediators. He has a Saxena catheter. Monitor urine output and renal function. Maintain MAP above 65, if required with vasopressors. Avoid nephrotoxic agents such as NSAIDs, aminoglycosides etc. Prognosis is guarded to poor. (2) Hyperkalemia ICD Codes: E87.5 - Hyperkalemia Plan: Due to renal failure, and acidosis. He has been medically treated as mentioned above. He is going to be on bicarbonate drip. Repeat labs. Monitor. Unstable for dialysis. (3) Hypo-osmolality and hyponatremia ICD Codes: E87.1 - Hypo-osmolality and hyponatremia Plan: Likely due to non osmotic release of ADH due to hypotension. However due to presence of hyperkalemia and hyponatremia, consider possibility of adrenal insufficiency. Obtain AM Cortisol level. Consider empiric Dexamethasone. (4) Sepsis ICD Codes: A41.9 - Sepsis, unspecified organism Plan: Recently was diagnosed with Pseudomonas pneumonia. ID has been consulted. (5) Lactic acidosis ICD Codes: E87.2 - Acidosis Status: Acute Plan: Could be due to sepsis and hypotension, and hypoperfusion. However he was on Metformin at his facility. Therefore Metformin induced lactic acidosis is a definite possibility. Currently on bicarbonate drip. Monitor. Repeat lactic acid level. (6) Esophageal adenocarcinoma ICD Codes: C15.9 - Malignant neoplasm of esophagus, unspecified Status: Acute Plan: Poor prognosis. Assessment and Plan Overall his prognosis is extremely poor. Goals of therapy will need to be defined. Dialysis/renal replacement therapy is a poor option who appears to have terminal cancer and multiple other medical problems. Thanks for the consult. Pratik Barrera MD Jan 31, 2017 14:37
[2017-01-31] MEDS: VANCOMYCIN INJ 1,600 MG in SODIUM CHLORID 0.9% 500 ML INJ 500 ML IV SCH (14:39)
[2017-01-31] MEDS: LEVOFLOXACIN 500 MG PREMIX INJ 100 ML IV SCH (14:40)
[2017-01-31] MEDS: AZTREONAM INJ 1,000 MG in SODIUM CHLORIDE 0.9% INJ 100 ML IV SCH ×2 (14:40→18:16)
[2017-01-31] MEDS: fentaNYL DRIP 250 ML IV PRN ×2 (14:42→19:58)
[2017-01-31] MEDS: SODIUM BICARBONATE 8.4% INJ 150 MEQ in WATER STERILE FOR INJ 850 ML IV SCH ×2 (15:46→21:58)
[2017-01-31] MEDS ORDERED: TERBUTALINE INJ 1 MG/ML AMP SQ PRN (16:00)
[2017-01-31] MEDS: NOREPINEPHRINE-DEXTROSE DRIP 250 ML IV PRN (16:45)
[2017-01-31] MEDS ORDERED: CHLORHEXIDINE GLUCONATE 2 % 1 PACK (2 CLOTHS)(extra cloths) TOPICAL PRN (17:00)
[2017-01-31] MEDS ORDERED: PROPOFOL 1000 MG/100 ML INJ 100 ML IV PRN (17:45)
[2017-01-31] MEDS ORDERED: PROPOFOL 1000 MG/100 ML IV PRN (18:00)
[2017-01-31] MEDS: MIDAZOLAM 100 MG/100 ML INJ 100 ML IV PRN ×2 (18:06→19:58)
[2017-01-31 18:08] LABS: BLOOD GAS BASE EXCESS -10.9 mmol/L (-2-2); BLOOD GAS CARBOXYHEMOGLOBIN 1.3 % (0-4); BLOOD GAS HCO3 15 mmol/L (22-26); BLOOD GAS METHEMOGLOBIN 1.3 % (0-2); BLOOD GAS O2 HGB SATURATION 97 % (90-100); BLOOD GAS OXYGEN CONTENT 12.1 Vol % (12.0-20.0); BLOOD GAS PCO2 33 mmHg (38-42); BLOOD GAS PO2 163 mmHg (61-120); BLOOD GAS TOTAL HGB 8.7 G/DL (12.0-16.0); CRITICAL VALUE YES; OXYGEN DEVICE VENTILATOR; TEMP CORR TO 98.6
[2017-01-31 18:09] LABS: DRAW SITE RT BRACHIAL; FIO2 40 %; NUMBER OF ARTERIAL PUNCTURES 1; STAT NO; ULNAR PULSE PRESENT; VENT SETTINGS 500/16/5PEEP
--- NOTE | 2017-01-31 19:24 | PD.PROCEDR ---
Procedure Note Procedure REASON FOR PROCEDURE Hemodynamic instability PROCEDURE PERFORMED Right femoral arterial line CONSENT Emergency procedure ANESTHESIA Local injection of 1% Lidocaine DESCRIPTION OF THE PROCEDURE The patient was placed in supine, mild Trendelenburg position. The area was exposed and cleansed with ChloraPrep, times two. Sterile drape was used to cover the patient, with the site exposed, under sterile conditions including cap , face mask, sterile gown, and sterile gloves. On single attempt, the introducer needle was inserted with negative pressure in syringe and arterial flash was obtained. The guide wire was then advanced without any restriction and the needle was removed. Using Seldinger technique the arterial catheter was advanced over the guide wire and the guide wire was removed. Good arterial waveform was obtained on the monitor. The arterial line was secured to the skin with two interrupted 2.0 silk sutures. The area was bandaged with sterile see- through central line bandage. COMPLICATIONS: No apparent complications ESTIMATED BLOOD LOSS: Less than 1 cc. Bean Delarosa MD Jan 31, 2017 19:24
[2017-01-31] MEDS: DOCUSATE SODIUM 50 MG/SENNA 8.6 MG TAB PO SCH (19:59)
[2017-01-31 20:55] LABS: AUTOMATED NEUTROPHIL # 15.6 TH/MM3 (1.8-7.7); HEMATOCRIT 25.8 % (39.0-51.0); HEMO FLAGS DIFF FINAL; LYMPH % 2.7 % (9.0-44.0); LYMPHOCYTE # 0.4 TH/MM3 (1.0-4.8); MEAN CELL VOLUME 91.5 FL (80.0-100.0); MEAN CORPUSCULAR HEMOGLOBIN 29.1 PG (27.0-34.0); MEAN CORPUSCULAR HGB CONC 31.8 % (32.0-36.0); MONO % 3.8 % (0.0-8.0); NEUT % 93.5 % (16.0-70.0); PLATELET COUNT 201 TH/MM3 (150-450); RED BLOOD COUNT 2.82 MIL/MM3 (4.50-5.90); RED CELL DISTRIBUTION WIDTH 18.2 % (11.6-17.2); WHITE BLOOD COUNT 16.6 TH/MM3 (4.0-11.0)
[2017-01-31 21:10] LABS: BICARBONATE 24.3 MEQ/L (21.0-32.0); POTASSIUM 5.7 MEQ/L (3.5-5.1)
[2017-01-31] MEDS ORDERED: SODIUM POLYSTYRENE SULFONATE 15 GM PO SCH (21:45)
[2017-01-31] MEDS ORDERED: SODIUM POLYSTYRENE SULFONATE SUSP 15 GM/60 ML CUP PO ONE (22:00)
[2017-02-01] VITALS (18 sets, daily range): BP systolic 97–139; BP diastolic 44–50; PULSE 76–91; RESP 16–18; TEMP 97.2–98.1; O2SAT 94–100
[2017-02-01] MEDS: metroNIDAZOLE 500 MG INJ 100 ML IV SCH ×4 (01:33→23:47)
[2017-02-01] MEDS: MICAFUNGIN INJ 150 MG in SODIUM CHLORIDE 0.9% INJ 100 ML IV SCH (01:33)
[2017-02-01] MEDS: CEFEPIME INJ 2,000 MG in SODIUM CHLORIDE 0.9% INJ 100 ML IV SCH ×2 (01:34→13:49)
[2017-02-01] MEDS: VASOPRESSIN INJ 40 UNITS in DEXTROSE 5% IN WATER 100ML INJ 98 ML IV SCH ×4 (01:35→18:51)
[2017-02-01] MEDS: NOREPINEPHRINE-DEXTROSE DRIP 250 ML IV PRN ×5 (01:37→19:57)
[2017-02-01] MEDS: INSULIN NovoLIN REGULAR SUPPLEMENTAL SCALE SQ SCH ×6 (01:53→22:00)
[2017-02-01] MEDS: RESP: ALBUTEROL 2.5 MG/IPRATROPIUM 0.5 MG NEB (SCH) INH ×4 (03:46→20:14)
[2017-02-01] MEDS: CHLORHEXIDINE GLUCONATE 2 % 1 PACK (2 CLOTHS) TOP SCH (04:00)
[2017-02-01] MEDS: CHLORHEXIDINE GLUCONATE 2 % 1 PACK (2 CLOTHS)(taper/protocol) TOPICAL SCH (04:00)
[2017-02-01] MEDS: HYDROCORTISONE SOD SUCCINATE 100 MG VIAL IV PUSH SCH ×4 (04:44→22:16)
[2017-02-01] MEDS: SODIUM BICARBONATE 8.4% INJ 150 MEQ in WATER STERILE FOR INJ 850 ML IV SCH (04:45)
[2017-02-01] MEDS: MIDAZOLAM 100 MG/100 ML INJ 100 ML IV PRN ×3 (04:45→19:56)
[2017-02-01 05:04] LABS: AUTOMATED NEUTROPHIL # 11.6 TH/MM3 (1.8-7.7); BASOPHIL % 0.2 % (0.0-2.0); HEMATOCRIT 25.4 % (39.0-51.0); HEMO FLAGS DIFF FINAL; LYMPH % 9.5 % (9.0-44.0); LYMPHOCYTE # 1.3 TH/MM3 (1.0-4.8); MEAN CELL VOLUME 90.7 FL (80.0-100.0); MEAN CORPUSCULAR HEMOGLOBIN 29.2 PG (27.0-34.0); MEAN CORPUSCULAR HGB CONC 32.2 % (32.0-36.0); MONO % 7.5 % (0.0-8.0); NEUT % 82.8 % (16.0-70.0); PLATELET COUNT 197 TH/MM3 (150-450); RED CELL DISTRIBUTION WIDTH 17.9 % (11.6-17.2); WHITE BLOOD COUNT 14.1 TH/MM3 (4.0-11.0)
[2017-02-01 05:35] LABS: BICARBONATE 28.9 MEQ/L (21.0-32.0); CALCIUM-PROTEIN CORRECTED 7.8 MG/DL (8.5-10.1); POTASSIUM 5.7 MEQ/L (3.5-5.1); TOTAL BILIRUBIN ADULT 0.5 MG/DL (0.2-1.0)
[2017-02-01] MEDS ORDERED: DEXTROSE 50% IN WATER 50 ML SYRINGE IV SCH (06:00)
[2017-02-01] MEDS ORDERED: INSULIN HUMAN REGULAR 1,000 UNITS/10 ML VIAL IV PUSH SCH (06:00)
[2017-02-01] MEDS ORDERED: SODIUM POLYSTYRENE SULFONATE SUSP 15 GM/60 ML CUP PO SCH (06:00)
[2017-02-01] MEDS: PANTOPRAZOLE SODIUM 40 MG VIAL IV PUSH SCH (09:11)
[2017-02-01] MEDS: CLOPIDOGREL 75 MG TAB PO SCH (09:12)
[2017-02-01] MEDS: ASPIRIN EC 81 MG TABEC PO SCH (09:12)
[2017-02-01] MEDS: DOCUSATE SODIUM 50 MG/SENNA 8.6 MG TAB PO SCH ×2 (09:13→19:58)
[2017-02-01] MEDS ORDERED: Vancomycin Consult Pharmacy 1 EA OTHER SCH (09:45)
[2017-02-01] MEDS ORDERED: BUMETANIDE INJ 1 MG/4 ML VIAL IV PUSH ONE ×2 (09:45→17:00)
[2017-02-01] MEDS ORDERED: INSULIN HUMAN REGULAR 1,000 UNITS/10 ML VIAL IV PUSH ONE (09:45)
--- NOTE | 2017-02-01 09:47 | HHI.CCPN ---
Subjective Remarks/Hospital Course The patient is a 61-year-old male with multiple comorbidities which include esophageal adenocarcinoma status post stent placement in December, coronary artery disease with previous stent placement in the proximal circumflex, squamous cell carcinoma of the skin and anemia and a history of atrial flutter. The patient presented to the [facility] Emergency Department from a local snf for hypoxemia and severe respiratory distress. On arrival to the emergency room, the patient was hypotensive with a systolic blood pressure in the 80s, bradycardic with heart rate in the 50s and had a temperature of 97.6. Due to severe respiratory distress, he was subsequently intubated and placed on full mechanical ventilation. In addition, Versed drip was initiated. In the emergency room, the patient was found to have wide complex tachycardia and his laboratory data showed severe hyperkalemia with a potassium level of 6.9 and lactic acidosis with a lactic acid level of 12.5. The patient went into PEA arrest in the emergency room and he received epinephrine, bicarb with successful return of spontaneous circulation. He received approximately 1.5 liters of crystalloids and was started on Levophed drip which is currently 20 mics. For hyperkalemia, the patient was given 2 ampules of bicarb, calcium gluconate and 10 units of IV insulin D50 and placed on bicarb drip. A chest x-ray post- intubation showed ET tube above the elizabeth, bilateral pleural effusions with consolidation and atelectasis at the bases right greater than left. An ABG post intubation appears venous blood gas which showed a pH of 7.13, CO2 28, pAO2 44, bicarb of 9, saturation 53% with a base excess of -18.6. This was on assist control ventilation rate of 16, tidal volume 550, PEEP of 5 and 100% FIO2. The patient is scheduled for CT scan of the abdomen and pelvis along with CT scan of the chest. He was discharged from the hospital yesterday after he was admitted on December 24. On his previous admission, the patient had an Pseudomonas pneumoniae. In addition, he had MSSA bacteremia back in November. 02/01 Patient remains intubated with versed and Fentnayl drips. Levophed down 12 mics from 20 and on Vasopressin 0.04 mics. Lactic acid is trending down 2.9 this morning from 12.5 on arrival. On Bicarb drip. Afebrile. Objective Vital Signs Date Time Temp Pulse Resp B/P (MAP) Pulse Ox O2 Delivery O2 Flow Rate FiO2 02/01/17 06:00 79 02/01/17 04:51 119/39 02/01/17 04:00 40 02/01/17 04:00 97.2 16 100 01/31/17 12:34 Ventilator Intake and Output 02/01/17 02/01/17 02/02/17 08:00 16:00 00:00 Intake Total 2248 ml Output Total 175 ml Balance 2073 ml Result Diagram: 02/01/17 0445 02/01/17 0445 Other Results Laboratory Tests Test 01/31/17 10:49 01/31/17 11:40 01/31/17 13:35 01/31/17 14:00 Blood Gas Puncture Site RT BRACHIAL LT BRACHIAL Blood Gas Patient Temperature 98.6 98.6 Blood Gas HCO3 9 mmol/L 14 mmol/L Blood Gas Base Excess -18.6 mmol/L -11.1 mmol/L Blood Gas Oxygen Saturation 53 % 96 % Arterial Blood pH 7.13 7.28 Arterial Blood Partial Pressure CO2 28 mmHg 31 mmHg Arterial Blood Partial Pressure O2 44 mmHG 130 mmHg Arterial Blood Oxygen Content 3.2 Vol % 10.1 Vol % Arterial Blood Carboxyhemoglobin 1.9 % 2.7 % Arterial Blood Methemoglobin 0.6 % 0.8 % Blood Gas Hemoglobin 4.1 G/DL 7.3 G/DL Oxygen Delivery Device VENTILATOR VENTILATOR Blood Gas Ventilator Setting AC/16/550/PEEP5 A/C 500/16/5PEEP Blood Gas Inspired Oxygen 100 % 50 % Urine Color YELLOW Urine Turbidity CLOUDY Urine pH 6.0 Urine Specific [place] 1.017 Urine Protein 100 mg/dL Urine Glucose (UA) NEG mg/dL Urine Ketones NEG mg/dL Urine Occult Blood MOD Urine Nitrite NEG Urine Bilirubin NEG Urine Urobilinogen LESS THAN 2.0 MG/DL Urine Leukocyte Esterase MOD Urine RBC 9 /hpf Urine WBC 14 /hpf Urine WBC Clumps RARE Urine Squamous Epithelial Cells <1 /hpf Urine Amorphous Sediment RARE Urine Bacteria OCC /hpf Urine Mucus FEW /lpf Microscopic Urinalysis Comment CATH-CULTURE IND White Blood Count 22.1 TH/MM3 Red Blood Count 2.57 MIL/MM3 Hemoglobin 7.2 GM/DL Hematocrit 23.7 % Mean Corpuscular Volume 92.5 FL Mean Corpuscular Hemoglobin 28.0 PG Mean Corpuscular Hemoglobin Concent 30.3 % Red Cell Distribution Width 18.9 % Platelet Count 215 TH/MM3 Mean Platelet Volume 8.5 FL Neutrophils (%) (Auto) 88.4 % Lymphocytes (%) (Auto) 3.1 % Monocytes (%) (Auto) 8.2 % Eosinophils (%) (Auto) 0.1 % Basophils (%) (Auto) 0.2 % Neutrophils # (Auto) 19.5 TH/MM3 Lymphocytes # (Auto) 0.7 TH/MM3 Monocytes # (Auto) 1.8 TH/MM3 Eosinophils # (Auto) 0.0 TH/MM3 Basophils # (Auto) 0.0 TH/MM3 CBC Comment AUTO DIFF Differential Comment Nasal Screen MRSA (PCR) MRSA NOT DETECTED Blood Urea Nitrogen 35 MG/DL Creatinine 1.90 MG/DL Random Glucose 193 MG/DL Calcium Level 7.8 MG/DL Sodium Level 131 MEQ/L Potassium Level 5.1 MEQ/L Chloride Level 96 MEQ/L Carbon Dioxide Level 17.5 MEQ/L Anion Gap 18 MEQ/L Estimat Glomerular Filtration Rate 36 ML/MIN Lactic Acid Level 11.1 mmol/L Test 01/31/17 17:50 01/31/17 20:15 02/01/17 01:20 02/01/17 04:45 Blood Gas Puncture Site RT BRACHIAL Blood Gas Patient Temperature 98.6 Blood Gas HCO3 15 mmol/L Blood Gas Base Excess -10.9 mmol/L Blood Gas Oxygen Saturation 97 % Arterial Blood pH 7.27 Arterial Blood Partial Pressure CO2 33 mmHg Arterial Blood Partial Pressure O2 163 mmHg Arterial Blood Oxygen Content 12.1 Vol % Arterial Blood Carboxyhemoglobin 1.3 % Arterial Blood Methemoglobin 1.3 % Blood Gas Hemoglobin 8.7 G/DL Oxygen Delivery Device VENTILATOR Blood Gas Ventilator Setting 500/16/5PEEP Blood Gas Inspired Oxygen 40 % White Blood Count 16.6 TH/MM3 14.1 TH/MM3 Red Blood Count 2.82 MIL/MM3 2.80 MIL/MM3 Hemoglobin 8.2 GM/DL 8.2 GM/DL Hematocrit 25.8 % 25.4 % Mean Corpuscular Volume 91.5 FL 90.7 FL Mean Corpuscular Hemoglobin 29.1 PG 29.2 PG Mean Corpuscular Hemoglobin Concent 31.8 % 32.2 % Red Cell Distribution Width 18.2 % 17.9 % Platelet Count 201 TH/MM3 197 TH/MM3 Mean Platelet Volume 8.7 FL 8.2 FL Neutrophils (%) (Auto) 93.5 % 82.8 % Lymphocytes (%) (Auto) 2.7 % 9.5 % Monocytes (%) (Auto) 3.8 % 7.5 % Eosinophils (%) (Auto) 0.0 % 0.0 % Basophils (%) (Auto) 0.0 % 0.2 % Neutrophils # (Auto) 15.6 TH/MM3 11.6 TH/MM3 Lymphocytes # (Auto) 0.4 TH/MM3 1.3 TH/MM3 Monocytes # (Auto) 0.6 TH/MM3 1.1 TH/MM3 Eosinophils # (Auto) 0.0 TH/MM3 0.0 TH/MM3 Basophils # (Auto) 0.0 TH/MM3 0.0 TH/MM3 CBC Comment DIFF FINAL DIFF FINAL Differential Comment Blood Urea Nitrogen 40 MG/DL 44 MG/DL Creatinine 1.73 MG/DL 1.86 MG/DL Random Glucose 304 MG/DL 224 MG/DL Calcium Level 8.1 MG/DL 7.3 MG/DL Sodium Level 128 MEQ/L 128 MEQ/L Potassium Level 5.7 MEQ/L 5.7 MEQ/L Chloride Level 92 MEQ/L 91 MEQ/L Carbon Dioxide Level 24.3 MEQ/L 28.9 MEQ/L Anion Gap 12 MEQ/L 8 MEQ/L Estimat Glomerular Filtration Rate 41 ML/MIN 37 ML/MIN Lactic Acid Level 5.7 mmol/L 2.9 mmol/L Total Protein 6.1 GM/DL Albumin 2.2 GM/DL Alkaline Phosphatase 86 U/L Aspartate Amino Transf (AST/SGOT) 520 U/L Alanine Aminotransferase (ALT/SGPT) 452 U/L Total Bilirubin 0.5 MG/DL Protein Corrected Calcium 7.8 MG/DL Imaging Last Impressions Chest X-Ray 01/31/17 0828 Signed Impressions: Service Date/Time: Tuesday, January 31, 2017 10:37 - CONCLUSION: 1. ET tube in good position. 2. Clinically. 3. Bilateral pleural effusions with partial right. 4. Consolidation/atelectasis at the bases being worse on the right. Washington Chou MD Chest CT 01/31/17 0000 Signed Impressions: Service Date/Time: Tuesday, January 31, 2017 12:52 - CONCLUSION: 1. Moderate bilateral pleural effusions with associated bibasilar airspace consolidation. 2. Mild patchy airspace disease in the lingula and right middle lobe. 3. Diffuse soft tissue prominence of the mid to distal esophagus with esophageal stent in place consistent with history of esophageal CA. Administered contrast extends to the proximal esophagus. 4. ETT in good position. NGT just be in the GE junction. 5. Prominent coronary artery calcifications. Escobar Joiner MD Abdomen/Pelvis CT 01/31/17 0000 Signed Impressions: Service Date/Time: Thursday, January 31, 2017 12:52 - CONCLUSION: 1. No definite CT findings to explain patient's lactic acidosis. Specifically, no evidence for bowel infarction or perforation. 2. Moderate bilateral pleural effusions with associated bilateral lower lobe airspace consolidation. 3. Diffusely prominent distal esophagus with distal esophageal stent in place. NGT courses through the stent with tip just beyond the GE junction. 4. Cirrhotic appearing liver without evidence for significant ascites or focal drainable fluid collection. Escobar Joiner MD Objective Remarks GENERAL: Patient is 61 yo critically ill intubated , sedated and on pressors. SKIN: Warm and dry. HEAD: Normocephalic. EYES: No scleral icterus. No injection or drainage. NECK: Supple, trachea midline. No JVD or lymphadenopathy. CARDIOVASCULAR: Regular rate and rhythm without murmurs, gallops, or rubs. RESPIRATORY: Breath sounds equal bilaterally. Coarse BS GASTROINTESTINAL: Abdomen soft, non-tender, nondistended. MUSCULOSKELETAL: No cyanosis, +3 edema. Neuro: Intubated, sedated A/P Assessment and Plan 1. VDRF 2. Septic shock. 3. Hyperkalemia. 4. Acute kidney injury. 5. Lactic acidemia and hyponatremia. 6. Anion gap metabolic acidosis. 7. Elevated AST. 8. Leukocytosis. 9. Anemia. 10. Possible pneumonia. 11. History of coronary artery disease with stent placement. 12. History of esophageal CA. 13. Squamous cell carcinoma of the skin. Plan Neuro: On Fentanyl and Versed drips for sedation. Daily sedation vacation. Pulm: Continue with vent support and maintain saturations>92%. Bronchodilators, stress dose steroids decrease hydrocortisone 50mg Q6 Check ABG [address] chest: Moderate bilateral pleural effusions with associated bibasilar airspace consolidation. Mild patchy airspace disease in the lingula and right middle lobe. 3. Diffuse soft tissue prominence of the mid to distal esophagus with esophageal stent in place consistent with history of esophageal CA. CV: Continue to wean off pressors ( Levophed, Vasopressin) Maintain MAP > 65 mmHg. Serial lactic acid monitoring until cleared. Lactic acid is trending down 2.9 today from 12.5 on arrival. Echo from 01/07 showed EF 60% to 65%. : Monitor renal function, intakes and outputs and avoid nephrotoxins. Renal is following- d/c bicarb drip Give Insulin 7 units IV and Bumex 2mg IV x1 for K 5.7 GI: Start tube feeds- Glucerna 1.5 with goal rate 45ml/hr Monitor LFT's, check US liver, check hepatitis profile. on Protonix 40 milligrams IV daily for GI prophylaxis. CT abdomen/pelvis: no evidence for bowel infarction or perforation. bilateral lower lobe airspace consolidation. Diffusely prominent distal esophagus with distal esophageal stent in place. NGT courses through the stent with tip just beyond the GE junction. 4. Cirrhotic appearing liver without evidence for significant ascites or focal drainable fluid collection. ID: Continue with abx (Levaquin, Cefepime, Micafungin, Vancomycin) ID is following Monitor for signs of infection which include fever and WBCs. Follow up on blood, sputum, urine cultures: NGTD Strep pneumoniae and Legionella urinary antigen negative. Heme: Monitor CBC Endo: SSI with Accu-Chek q. 4 hours for glycemic control. GI prophylaxis with Protonix 40 milligrams daily. DVT prophylaxis with SCDs. Lines: Right Femoral Central line placed by ED 02/01, Right femoral Art Line placed 01/31 CCT 30 mins Dixie Navarrete MD Feb 01, 2017 09:47
[2017-02-01 09:53] LABS: BLOOD GAS BASE EXCESS 3.4 mmol/L (-2-2); BLOOD GAS HCO3 29 mmol/L (22-26); BLOOD GAS METHEMOGLOBIN 0.9 % (0-2); BLOOD GAS O2 HGB SATURATION 93 % (90-100); BLOOD GAS OXYGEN CONTENT 10.7 Vol % (12.0-20.0); BLOOD GAS PCO2 57 mmHg (38-42); BLOOD GAS PO2 92 mmHg (61-120); CRITICAL VALUE YES; OXYGEN DEVICE VENTILATOR; TEMP CORR TO 98.6; VENT SETTINGS AC16/500/+5PEEP
[2017-02-01 09:54] LABS: DRAW SITE ART LINE; FIO2 40 %; STAT NO
[2017-02-01] MEDS ORDERED: NOREPINEPHRINE 4 MG/4 ML AMP ONE (10:23)
[2017-02-01] MEDS: VANCOMYCIN INJ 1,600 MG in SODIUM CHLORID 0.9% 500 ML INJ 500 ML IV SCH (11:29)
[2017-02-01] MEDS: LEVOFLOXACIN 500 MG PREMIX INJ 100 ML IV SCH (11:29)
--- NOTE | 2017-02-01 11:34 | HHI.NPPN ---
Subjective Interval History Remains intubated. Oliguric. About 6 liters positive. Acidosis has improved. On Vasopressin and Levophed, but hemodynamically more stable. Objective Data Data 02/01/17 02/02/17 19:00 07:00 Intake Total 900 ml Balance 900 ml IV Total 900 ml Vital Signs Date Time Temp Pulse Resp B/P (MAP) Pulse Ox O2 Delivery O2 Flow Rate FiO2 02/01/17 10:34 89 120/54 02/01/17 10:20 96 40 02/01/17 06:00 79 02/01/17 04:51 76 119/39 02/01/17 04:00 76 02/01/17 04:00 40 02/01/17 04:00 97.2 76 16 128/50 (76) 100 02/01/17 03:47 100 40 02/01/17 02:00 76 02/01/17 01:37 90 124/45 02/01/17 01:35 90 124/44 02/01/17 01:20 98 40 02/01/17 00:00 87 02/01/17 00:00 40 02/01/17 00:00 97.6 87 16 125/45 (71) 98 01/31/17 23:16 97 40 01/31/17 22:00 84 01/31/17 21:10 97 40 01/31/17 20:00 97.9 83 16 100/51 (67) 94 01/31/17 20:00 40 01/31/17 20:00 80 01/31/17 18:15 98.2 81 16 104/53 100 01/31/17 18:00 82 01/31/17 17:38 97.8 83 16 118/58 100 01/31/17 17:09 100 40 01/31/17 17:00 97.5 82 16 101/54 (70) 100 01/31/17 16:45 82 16 106/53 (70) 100 01/31/17 16:45 82 106/53 01/31/17 16:30 82 16 105/53 (70) 100 01/31/17 16:15 81 16 104/51 (68) 100 01/31/17 16:00 80 01/31/17 16:00 40 01/31/17 16:00 80 16 102/51 (68) 100 01/31/17 15:45 79 16 102/52 (69) 100 01/31/17 15:30 79 16 105/54 (71) 100 01/31/17 15:15 80 16 106/53 (70) 100 01/31/17 15:00 80 16 104/55 (71) 100 01/31/17 14:45 79 16 97/54 (68) 100 01/31/17 14:30 80 16 99/47 (64) 100 01/31/17 14:15 83 18 107/53 (71) 100 01/31/17 14:00 84 01/31/17 14:00 84 18 118/40 (66) 100 01/31/17 13:30 97.5 87 18 143/63 (89) 100 01/31/17 13:29 96 80 01/31/17 13:10 100 100 01/31/17 13:00 80 01/31/17 12:55 01/31/17 12:40 100 100 01/31/17 12:34 82 113/53 (73) 100 Ventilator 01/31/17 12:04 83 17 120/56 (77) 100 Ventilator 100 -: 02/01/17 0445 02/01/17 0445 Microbiology 01/31/17 Gram Stain - Final, Resulted 01/31/17 Sputum Culture, Resulted Pending 01/31/17 Gram Stain - Final, Resulted 01/31/17 Sputum Culture, Resulted Pending 01/31/17 Legionella Antigen - Final, Complete PRESUMPTIVE NEGATIVE FOR LEGIONELLA P... 01/31/17 Streptococcus pneumoniae Antigen (M - Final, Complete PRESUMPTIVE NEGATIVE FOR STREPTOCOCCU... 01/31/17 Urine Culture, Received Pending Physical Exam General Appearance: Well Developed Appearance Remarks intubated, on the ventilator. Neck Neck Exam: Neck Supple Pulmonary Resp Exam: Rhonchi, Diminished Breath Sounds Cardiology CV Exam: Regular, Murmur Gastrointestinal/Abdomen GI Exam: Soft, Distended Musculoskeletal MS Exam: Joints Intact Extremeties Extremities Exam: Dependent Edema Neurologic Neuro Remarks unresponsive. Assessment/Plan Problem List: (1) Acute kidney injury ICD Codes: N17.9 - Acute kidney failure, unspecified Plan: This is perhaps due to ATN from hypotension or sepsis and release of inflammatory mediators. Monitor urine output and renal function. Maintain MAP above 65, if required with vasopressors. Avoid nephrotoxic agents such as NSAIDs, aminoglycosides etc. Stop IVF. Trial of loop diuretic. Discussed with Dr. Garcia. Prognosis is guarded to poor. (2) Hyperkalemia ICD Codes: E87.5 - Hyperkalemia Plan: Due to renal failure, and acidosis. Improved, but serum potassium has not normalized. A dose of loop diuretic. Insulin and dextrose. Monitor. (3) Hypo-osmolality and hyponatremia ICD Codes: E87.1 - Hypo-osmolality and hyponatremia Plan: Likely due to non osmotic release of ADH due to hypotension. However due to presence of hyperkalemia and hyponatremia, consider possibility of adrenal insufficiency. Obtain AM Cortisol level. Consider empiric Dexamethasone. (4) Sepsis ICD Codes: A41.9 - Sepsis, unspecified organism Plan: Recently was diagnosed with Pseudomonas pneumonia. ID has been consulted. He is on Cefepime, Levaquin, Micafungin and Vancomycin. (5) Lactic acidosis ICD Codes: E87.2 - Acidosis Status: Acute Plan: Could be due to sepsis and hypotension, and hypoperfusion. However he was on Metformin at his facility. Therefore Metformin induced lactic acidosis is a definite possibility. Currently on bicarbonate drip. Monitor. Repeat lactic acid level. (6) Esophageal adenocarcinoma ICD Codes: C15.9 - Malignant neoplasm of esophagus, unspecified Status: Acute Plan: Poor prognosis. Pratik Barrera MD Feb 01, 2017 11:34
[2017-02-01] MEDS: fentaNYL DRIP 250 ML IV PRN ×2 (14:02→19:57)
--- NOTE | 2017-02-01 15:44 | HHI.IDPN ---
Subjective Subjective Remarks remains on pressors afebrile no diarrhea (in fact, no BM) remains on vent WBC went down Antibiotics cefepime levaquine micafungin flagyl vancomycin Allergies: Coded Allergies: penicillin G (Unverified Allergy, Mild, Hives, 12/30/16) Objective . Vital Signs Date Time Temp Pulse Resp B/P (MAP) Pulse Ox O2 Delivery O2 Flow Rate FiO2 02/01/17 15:02 98 40 02/01/17 14:55 84 120/44 02/01/17 12:00 40 02/01/17 12:00 98.0 91 100/49 (66) 121/44 (69) 02/01/17 12:00 91 02/01/17 12:00 40 02/01/17 10:34 89 120/54 02/01/17 10:20 96 40 02/01/17 10:00 90 02/01/17 08:00 40 02/01/17 08:00 90 02/01/17 08:00 98.1 89 16 97/47 (64) 94 02/01/17 08:00 40 02/01/17 06:00 79 02/01/17 04:51 76 119/39 02/01/17 04:00 76 02/01/17 04:00 40 02/01/17 04:00 97.2 76 16 128/50 (76) 100 02/01/17 03:47 100 40 02/01/17 02:00 76 02/01/17 01:37 90 124/45 02/01/17 01:35 90 124/44 02/01/17 01:20 98 40 02/01/17 00:00 87 02/01/17 00:00 40 02/01/17 00:00 97.6 87 16 125/45 (71) 98 01/31/17 23:16 97 40 01/31/17 22:00 84 01/31/17 21:10 97 40 01/31/17 20:00 97.9 83 16 100/51 (67) 94 01/31/17 20:00 40 01/31/17 20:00 80 01/31/17 18:15 98.2 81 16 104/53 100 01/31/17 18:00 82 01/31/17 17:38 97.8 83 16 118/58 100 01/31/17 17:09 100 40 01/31/17 17:00 97.5 82 16 101/54 (70) 100 01/31/17 16:45 82 16 106/53 (70) 100 01/31/17 16:45 82 106/53 01/31/17 16:30 82 16 105/53 (70) 100 01/31/17 16:15 81 16 104/51 (68) 100 01/31/17 16:00 80 01/31/17 16:00 40 01/31/17 16:00 80 16 102/51 (68) 100 01/31/17 15:45 79 16 102/52 (69) 100 01/31/17 15:30 79 16 105/54 (71) 100 01/31/17 15:15 80 16 106/53 (70) 100 02/01/17 02/01/17 02/02/17 15:00 23:00 07:00 Intake Total 900 ml Balance 900 ml IV Total 900 ml . Laboratory Tests Test 01/31/17 08:30 01/31/17 13:35 01/31/17 20:15 02/01/17 04:45 White Blood Count 12.5 TH/MM3 22.1 TH/MM3 16.6 TH/MM3 14.1 TH/MM3 Red Blood Count 2.98 MIL/MM3 2.57 MIL/MM3 2.82 MIL/MM3 2.80 MIL/MM3 Hemoglobin 8.3 GM/DL 7.2 GM/DL 8.2 GM/DL 8.2 GM/DL Hematocrit 27.9 % 23.7 % 25.8 % 25.4 % Mean Corpuscular Volume 93.3 FL 92.5 FL 91.5 FL 90.7 FL Mean Corpuscular Hemoglobin 27.8 PG 28.0 PG 29.1 PG 29.2 PG Mean Corpuscular Hemoglobin Concent 29.8 % 30.3 % 31.8 % 32.2 % Red Cell Distribution Width 19.1 % 18.9 % 18.2 % 17.9 % Platelet Count 288 TH/MM3 215 TH/MM3 201 TH/MM3 197 TH/MM3 Mean Platelet Volume 8.7 FL 8.5 FL 8.7 FL 8.2 FL Neutrophils (%) (Auto) 81.8 % 88.4 % 93.5 % 82.8 % Lymphocytes (%) (Auto) 10.9 % 3.1 % 2.7 % 9.5 % Monocytes (%) (Auto) 7.2 % 8.2 % 3.8 % 7.5 % Eosinophils (%) (Auto) 0.0 % 0.1 % 0.0 % 0.0 % Basophils (%) (Auto) 0.1 % 0.2 % 0.0 % 0.2 % Neutrophils # (Auto) 10.3 TH/MM3 19.5 TH/MM3 15.6 TH/MM3 11.6 TH/MM3 Lymphocytes # (Auto) 1.4 TH/MM3 0.7 TH/MM3 0.4 TH/MM3 1.3 TH/MM3 Monocytes # (Auto) 0.9 TH/MM3 1.8 TH/MM3 0.6 TH/MM3 1.1 TH/MM3 Eosinophils # (Auto) 0.0 TH/MM3 0.0 TH/MM3 0.0 TH/MM3 0.0 TH/MM3 Basophils # (Auto) 0.0 TH/MM3 0.0 TH/MM3 0.0 TH/MM3 0.0 TH/MM3 CBC Comment DIFF FINAL AUTO DIFF DIFF FINAL DIFF FINAL Differential Comment Laboratory Tests Test 01/31/17 08:30 01/31/17 13:35 01/31/17 20:15 02/01/17 01:20 Blood Urea Nitrogen 33 MG/DL 35 MG/DL 40 MG/DL Creatinine 1.71 MG/DL 1.90 MG/DL 1.73 MG/DL Random Glucose 137 MG/DL 193 MG/DL 304 MG/DL Total Protein 7.4 GM/DL Albumin 2.7 GM/DL Calcium Level 8.4 MG/DL 7.8 MG/DL 8.1 MG/DL Alkaline Phosphatase 109 U/L Aspartate Amino Transf (AST/SGOT) 84 U/L Alanine Aminotransferase (ALT/SGPT) 22 U/L Total Bilirubin 0.9 MG/DL Sodium Level 125 MEQ/L 131 MEQ/L 128 MEQ/L Potassium Level 6.9 MEQ/L 5.1 MEQ/L 5.7 MEQ/L Chloride Level 90 MEQ/L 96 MEQ/L 92 MEQ/L Carbon Dioxide Level 16.2 MEQ/L 17.5 MEQ/L 24.3 MEQ/L Anion Gap 19 MEQ/L 18 MEQ/L 12 MEQ/L Estimat Glomerular Filtration Rate 41 ML/MIN 36 ML/MIN 41 ML/MIN Lactic Acid Level 12.5 mmol/L 11.1 mmol/L 5.7 mmol/L 2.9 mmol/L Total Creatine Kinase 90 U/L Troponin I 0.12 NG/ML Test 02/01/17 04:45 02/01/17 12:05 02/01/17 14:30 Blood Urea Nitrogen 44 MG/DL Creatinine 1.86 MG/DL Random Glucose 224 MG/DL Total Protein 6.1 GM/DL Albumin 2.2 GM/DL Calcium Level 7.3 MG/DL Alkaline Phosphatase 86 U/L Aspartate Amino Transf (AST/SGOT) 520 U/L Alanine Aminotransferase (ALT/SGPT) 452 U/L Total Bilirubin 0.5 MG/DL Sodium Level 128 MEQ/L Potassium Level 5.7 MEQ/L 5.1 MEQ/L Chloride Level 91 MEQ/L Carbon Dioxide Level 28.9 MEQ/L Anion Gap 8 MEQ/L Estimat Glomerular Filtration Rate 37 ML/MIN Protein Corrected Calcium 7.8 MG/DL Lactic Acid Level 1.7 mmol/L Microbiology Date/Time Source Procedure Growth Status 01/31/17 08:35 Blood Peripheral Aerobic Blood Culture - Preliminary NO GROWTH IN 1 DAY Resulted 01/31/17 08:35 Blood Peripheral Anaerobic Blood Culture - Preliminary NO GROWTH IN 1 DAY Resulted 01/31/17 08:30 Blood Peripheral Aerobic Blood Culture - Preliminary NO GROWTH IN 1 DAY Resulted 01/31/17 08:30 Blood Peripheral Anaerobic Blood Culture - Preliminary NO GROWTH IN 1 DAY Resulted 01/31/17 21:40 Sputum Endotracheal Gram Stain - Final Resulted 01/31/17 21:40 Sputum Endotracheal Sputum Culture - Preliminary HEAVY GROWTH NORMAL RESPIRATORY EDE... Resulted 01/31/17 16:30 Sputum Expectorated Sputum Gram Stain - Final Resulted 01/31/17 16:30 Sputum Expectorated Sputum Sputum Culture - Preliminary HEAVY GROWTH NORMAL RESPIRATORY EDE... Resulted 01/31/17 13:35 Urine Catheterized Urine Legionella Antigen - Final PRESUMPTIVE NEGATIVE FOR LEGIONELLA P... Complete 01/31/17 13:35 Urine Catheterized Urine Streptococcus pneumoniae Antigen (M - Final PRESUMPTIVE NEGATIVE FOR STREPTOCOCCU... Complete 01/31/17 11:40 Urine Clean Catch Urine Culture - Preliminary NO GROWTH IN 24 HOURS. Resulted Imaging Last Impressions Chest X-Ray 01/31/17827 Signed Impressions: Service Date/Time: Tuesday, January 31, 2017 10:37 - CONCLUSION: 1. ET tube in good position. 2. Clinically. 3. Bilateral pleural effusions with partial right. 4. Consolidation/atelectasis at the bases being worse on the right. Washington Chou MD Chest CT 01/31/17 0000 Signed Impressions: Service Date/Time: Tuesday, January 31, 2017 12:52 - CONCLUSION: 1. Moderate bilateral pleural effusions with associated bibasilar airspace consolidation. 2. Mild patchy airspace disease in the lingula and right middle lobe. 3. Diffuse soft tissue prominence of the mid to distal esophagus with esophageal stent in place consistent with history of esophageal CA. Administered contrast extends to the proximal esophagus. 4. ETT in good position. NGT just be in the GE junction. 5. Prominent coronary artery calcifications. Escobar Joiner MD Abdomen/Pelvis CT 01/31/17 0000 Signed Impressions: Service Date/Time: Tuesday, January 31, 2017 12:52 - CONCLUSION: 1. No definite CT findings to explain patient's lactic acidosis. Specifically, no evidence for bowel infarction or perforation. 2. Moderate bilateral pleural effusions with associated bilateral lower lobe airspace consolidation. 3. Diffusely prominent distal esophagus with distal esophageal stent in place. NGT courses through the stent with tip just beyond the GE junction. 4. Cirrhotic appearing liver without evidence for significant ascites or focal drainable fluid collection. Escobar Joiner MD Physical Exam CONSTITUTIONAL/GENERAL: This is an adequately nourished patient, sedated, intubated on [facility] ventilation TUBES/LINES/DRAINS: SKIN: No jaundice, rashes, or lesions. Skin temperature appropriate. Not diaphoretic. HEAD: Atraumatic. Normocephalic. EYES: Pupils equal and round and reactive. . No scleral icterus. No injection or drainage. Fundi not examined. ENT: Hearing not tested Nose without bleeding or purulent drainage. Orally intubated, mucosae w/o visible erythema, exudates, masses, or lesions. NECK: Trachea midline. Supple, nontender. CARDIOVASCULAR: Regular rate and rhythm Harsh systolic murmur on base cw 4/6 , no gallops, or rubs. No JVD. Peripheral pulses symmetric. Diminished refill symmetrically RESPIRATORY/CHEST: Symmetric, respirations. Clear to auscultation. Breath sounds equal bilaterally. No wheezes, rales, or rhonchi. GASTROINTESTINAL: Abdomen soft, non-tender, nondistended. No hepato-splenomegaly , or palpable masses. No guarding. Bowel sounds present. GENITOURINARY: Without palpable bladder distension. Saxena catheter in place w smalll amount of urine MUSCULOSKELETAL: Extremities without clubbing, cyanosis, or edema. No joint tenderness or effusion noted. No calf tenderness. No mottling or clubbing. LYMPHATICS: No palpable cervical or supraclavicular adenopathy. NEUROLOGICAL: sedated. Unresponsive PSYCHIATRIC: unable to assess Assessment & Plan Remarks Esophafgeal ca sp stent Recent Pseudomonas PNA Shock, sepsis, lactic acidosis, leukocytosis > 22K on presentation - his lactic acidemia improved Acute VDRF PNA PCN allery but tolearted cefepime OK on previous admission Recent MSSA sepsis, aw Infusaport (removed ) Pt is critically ill,unstable cont vanco cont cefepime cont levaquine add micafungin add IV flagyl Meghan Garcia MD Feb 01, 2017 15:44
--- NOTE | 2017-02-01 18:15 | RADRPT ---
EXAM DATE/TIME: 02/01/2017 16:32 [place] COMPARISON: No previous studies available for comparison. INDICATIONS : Increased labs. MEDICAL HISTORY : Hypercholesterolemia. Hypertension. Hernia, hiatal. Hyperlipidemia. COPD. Dyspn ea. Diabetes. Hepatitis C. Carcinoma, lung. Cirrhosis. Heart attack. SURGICAL HISTORY : Appendectomy. Left ear surgery. ENCOUNTER: Initial ACUITY: 1 day PAIN SCORE: Nonresponsive. LOCATION: Bilateral upper quadrant MEASUREMENTS: LIVER: 19.4 cm length COMMON DUCT: 4 mm RIGHT KIDNEY: 12.2 x 6.9 x 5.8 cm SPLEEN: 12.2 cm length FINDINGS: LIVER: Liver is cirrhotic in appearance similar to recent CT exam. No gross hepatic mass or intra hepatic ductal dilatation. Trace fluid in the pelvis. COMMON DUCT: No intraluminal mass or stone visualized. GALLBLADDER: Moderate gallbladder wall thickening measuring up to 9 mm with mild pericholecystic fluid. No gallstones or sonographic Tay sign. PANCREAS: The visualized portions are within normal limits. RIGHT KIDNEY: No hydronephrosis, stone or mass. SPLEEN: No focal lesion. Miscellaneous: Incidental note of bilateral pleural effusions. CONCLUSION: 1. Cirrhotic appearing liver with trace ascites in the pelvis. 2. Gallbladder wall thickening and mild pericholecystic fluid without gallstones. These findings are routinely seen in the setting of cirrhosis. If there is significant clinical concern regarding cholec ystitis, HIDA scan may be performed. 3. Bilateral pleural effusions. Escobar Joiner MD on February 01, 2017 at 18:09 Board Certified Radiologist. This report was verified electronically.
[2017-02-02] VITALS (22 sets, daily range): BP systolic 100–135; BP diastolic 41–70; PULSE 83–117; RESP 18; TEMP 97.1–98.5; O2SAT 96–100
[2017-02-02] MEDS: CEFEPIME INJ 2,000 MG in SODIUM CHLORIDE 0.9% INJ 100 ML IV SCH ×2 (01:05→14:00)
[2017-02-02] MEDS: INSULIN NovoLIN REGULAR SUPPLEMENTAL SCALE SQ SCH ×6 (01:14→22:27)
[2017-02-02] MEDS: MICAFUNGIN INJ 150 MG in SODIUM CHLORIDE 0.9% INJ 100 ML IV SCH (02:39)
[2017-02-02] MEDS: NOREPINEPHRINE-DEXTROSE DRIP 250 ML IV PRN (02:40)
[2017-02-02] MEDS: CHLORHEXIDINE GLUCONATE 2 % 1 PACK (2 CLOTHS) TOP SCH (03:27)
[2017-02-02] MEDS: CHLORHEXIDINE GLUCONATE 2 % 1 PACK (2 CLOTHS)(taper/protocol) TOPICAL SCH (03:31)
[2017-02-02] MEDS: RESP: ALBUTEROL 2.5 MG/IPRATROPIUM 0.5 MG NEB (SCH) INH ×4 (03:43→19:48)
[2017-02-02 04:38] LABS: BASOPHIL % 0.1 % (0.0-2.0); HEMATOCRIT 23.6 % (39.0-51.0); HEMO FLAGS DIFF FINAL; LYMPH % 5.7 % (9.0-44.0); LYMPHOCYTE # 0.6 TH/MM3 (1.0-4.8); MEAN CELL VOLUME 89.1 FL (80.0-100.0); MEAN CORPUSCULAR HEMOGLOBIN 28.8 PG (27.0-34.0); MEAN CORPUSCULAR HGB CONC 32.3 % (32.0-36.0); MONO % 4.6 % (0.0-8.0); NEUT % 89.6 % (16.0-70.0); PLATELET COUNT 145 TH/MM3 (150-450); RED BLOOD COUNT 2.65 MIL/MM3 (4.50-5.90); WHITE BLOOD COUNT 11.2 TH/MM3 (4.0-11.0)
[2017-02-02 05:07] LABS: BICARBONATE 29.1 MEQ/L (21.0-32.0); CALCIUM-PROTEIN CORRECTED 8.1 MG/DL (8.5-10.1); MAGNESIUM 1.8 MG/DL (1.5-2.5); POTASSIUM 4.3 MEQ/L (3.5-5.1); TOTAL BILIRUBIN ADULT 0.5 MG/DL (0.2-1.0)
[2017-02-02] MEDS: HYDROCORTISONE SOD SUCCINATE 100 MG VIAL IV PUSH SCH ×3 (05:12→18:46)
--- NOTE | 2017-02-02 07:38 | HHI.CCPN ---
Subjective Remarks/Hospital Course The patient is a 61-year-old male with multiple comorbidities which include esophageal adenocarcinoma status post stent placement in December, coronary artery disease with previous stent placement in the proximal circumflex, squamous cell carcinoma of the skin and anemia and a history of atrial flutter. The patient presented to the [facility] Emergency Department from a local halfway for hypoxemia and severe respiratory distress. On arrival to the emergency room, the patient was hypotensive with a systolic blood pressure in the 80s, bradycardic with heart rate in the 50s and had a temperature of 97.6. Due to severe respiratory distress, he was subsequently intubated and placed on full mechanical ventilation. In addition, Versed drip was initiated. In the emergency room, the patient was found to have wide complex tachycardia and his laboratory data showed severe hyperkalemia with a potassium level of 6.9 and lactic acidosis with a lactic acid level of 12.5. The patient went into PEA arrest in the emergency room and he received epinephrine, bicarb with successful return of spontaneous circulation. He received approximately 1.5 liters of crystalloids and was started on Levophed drip which is currently 20 mics. For hyperkalemia, the patient was given 2 ampules of bicarb, calcium gluconate and 10 units of IV insulin D50 and placed on bicarb drip. A chest x-ray post- intubation showed ET tube above the elizabeth, bilateral pleural effusions with consolidation and atelectasis at the bases right greater than left. An ABG post intubation appears venous blood gas which showed a pH of 7.13, CO2 28, pAO2 44, bicarb of 9, saturation 53% with a base excess of -18.6. This was on assist control ventilation rate of 16, tidal volume 550, PEEP of 5 and 100% FIO2. The patient is scheduled for CT scan of the abdomen and pelvis along with CT scan of the chest. He was discharged from the hospital yesterday after he was admitted on December 24. On his previous admission, the patient had an Pseudomonas pneumoniae. In addition, he had MSSA bacteremia back in November. 02/01 Patient remains intubated with versed and Fentnayl drips. Levophed down 12 mics from 20 and on Vasopressin 0.04 mics. Lactic acid is trending down 2.9 this morning from 12.5 on arrival. On Bicarb drip. Afebrile. 02/02 No events overnight. Sedated with Versed and Fentanyl drips. Levophed down 6 mics and on Vasopressin 0.04. Renal function is improving with Cr: 1.17 from 1.86. Off Bicarb drip. Objective Vital Signs Date Time Temp Pulse Resp B/P (MAP) Pulse Ox O2 Delivery O2 Flow Rate FiO2 02/02/17 06:00 85 02/02/17 04:10 100 40 02/02/17 04:00 97.1 18 129/42 (71) 01/31/17 12:34 Ventilator Intake and Output 02/02/17 02/02/17 02/03/17 08:00 16:00 00:00 Intake Total 550 ml Output Total 1500 ml Balance -950 ml Result Diagram: 02/02/17 0345 02/02/17 0345 Other Results Laboratory Tests Test 02/01/17 09:48 02/01/17 12:05 02/01/17 14:30 02/02/17 03:45 Blood Gas Puncture Site ART LINE Blood Gas Patient Temperature 98.6 Blood Gas HCO3 29 mmol/L Blood Gas Base Excess 3.4 mmol/L Blood Gas Oxygen Saturation 93 % Arterial Blood pH 7.32 Arterial Blood Partial Pressure CO2 57 mmHg Arterial Blood Partial Pressure O2 92 mmHg Arterial Blood Oxygen Content 10.7 Vol % Arterial Blood Carboxyhemoglobin 3.0 % Arterial Blood Methemoglobin 0.9 % Blood Gas Hemoglobin 8.0 G/DL Oxygen Delivery Device VENTILATOR Blood Gas Ventilator Setting AC16/500/+[id number] Blood Gas Inspired Oxygen 40 % Lactic Acid Level 1.7 mmol/L Potassium Level 5.1 MEQ/L 4.3 MEQ/L White Blood Count 11.2 TH/MM3 Red Blood Count 2.65 MIL/MM3 Hemoglobin 7.6 GM/DL Hematocrit 23.6 % Mean Corpuscular Volume 89.1 FL Mean Corpuscular Hemoglobin 28.8 PG Mean Corpuscular Hemoglobin Concent 32.3 % Red Cell Distribution Width 18.0 % Platelet Count 145 TH/MM3 Mean Platelet Volume 8.7 FL Neutrophils (%) (Auto) 89.6 % Lymphocytes (%) (Auto) 5.7 % Monocytes (%) (Auto) 4.6 % Eosinophils (%) (Auto) 0.0 % Basophils (%) (Auto) 0.1 % Neutrophils # (Auto) 10.0 TH/MM3 Lymphocytes # (Auto) 0.6 TH/MM3 Monocytes # (Auto) 0.5 TH/MM3 Eosinophils # (Auto) 0.0 TH/MM3 Basophils # (Auto) 0.0 TH/MM3 CBC Comment DIFF FINAL Differential Comment Blood Urea Nitrogen 42 MG/DL Creatinine 1.17 MG/DL Random Glucose 191 MG/DL Total Protein 5.9 GM/DL Albumin 2.1 GM/DL Calcium Level 7.4 MG/DL Phosphorus Level 3.5 MG/DL Magnesium Level 1.8 MG/DL Alkaline Phosphatase 82 U/L Aspartate Amino Transf (AST/SGOT) 342 U/L Alanine Aminotransferase (ALT/SGPT) 474 U/L Total Bilirubin 0.5 MG/DL Sodium Level 129 MEQ/L Chloride Level 92 MEQ/L Carbon Dioxide Level 29.1 MEQ/L Anion Gap 8 MEQ/L Estimat Glomerular Filtration Rate 64 ML/MIN Protein Corrected Calcium 8.1 MG/DL Random Cortisol 84.8 MCG/DL Imaging Last Impressions Liver Ultrasound 02/01/17 0000 Signed Impressions: Service Date/Time: Wednesday, February 01, 2017 16:32 - CONCLUSION: 1. Cirrhotic appearing liver with trace ascites in the pelvis. 2. Gallbladder wall thickening and mild pericholecystic fluid without gallstones. These findings are routinely seen in the setting of cirrhosis. If there is significant clinical concern regarding cholecystitis, HIDA scan may be performed. 3. Bilateral pleural effusions. Escobar Joiner MD Chest X-Ray 01/31/17 0828 Signed Impressions: Service Date/Time: Tuesday, January 31, 2017 10:37 - CONCLUSION: 1. ET tube in good position. 2. Clinically. 3. Bilateral pleural effusions with partial right. 4. Consolidation/atelectasis at the bases being worse on the right. Washington Chou MD Chest CT 01/31/17 0000 Signed Impressions: Service Date/Time: Tuesday, January 31, 2017 12:52 - CONCLUSION: 1. Moderate bilateral pleural effusions with associated bibasilar airspace consolidation. 2. Mild patchy airspace disease in the lingula and right middle lobe. 3. Diffuse soft tissue prominence of the mid to distal esophagus with esophageal stent in place consistent with history of esophageal CA. Administered contrast extends to the proximal esophagus. 4. ETT in good position. NGT just be in the GE junction. 5. Prominent coronary artery calcifications. Escobar Joiner MD Abdomen/Pelvis CT 01/31/17 0000 Signed Impressions: Service Date/Time: Tuesday, January 31, 2017 12:52 - CONCLUSION: 1. No definite CT findings to explain patient's lactic acidosis. Specifically, no evidence for bowel infarction or perforation. 2. Moderate bilateral pleural effusions with associated bilateral lower lobe airspace consolidation. 3. Diffusely prominent distal esophagus with distal esophageal stent in place. NGT courses through the stent with tip just beyond the GE junction. 4. Cirrhotic appearing liver without evidence for significant ascites or focal drainable fluid collection. Escobar Joiner MD Objective Remarks GENERAL: Patient is 61 yo critically ill intubated , sedated and on pressors. SKIN: Warm and dry. HEAD: Normocephalic. EYES: No scleral icterus. No injection or drainage. NECK: Supple, trachea midline. No JVD or lymphadenopathy. CARDIOVASCULAR: Regular rate and rhythm without murmurs, gallops, or rubs. RESPIRATORY: Breath sounds equal bilaterally. Coarse BS GASTROINTESTINAL: Abdomen soft, non-tender, nondistended. MUSCULOSKELETAL: No cyanosis, +3 edema. Neuro: Intubated, sedated A/P Assessment and Plan 1. VDRF 2. Septic shock. 3. Hyperkalemia. 4. Acute kidney injury. 5. Lactic acidemia and hyponatremia. 6. Anion gap metabolic acidosis. 7. Elevated AST. 8. Leukocytosis. 9. Anemia. 10. Possible pneumonia. 11. History of coronary artery disease with stent placement. 12. History of esophageal CA. 13. Squamous cell carcinoma of the skin. Plan Neuro: On Fentanyl and Versed drips for sedation. Daily sedation vacation. Pulm: Continue with vent support and maintain saturations>92%. Bronchodilators, hydrocortisone 50mg Q6 Check CXR CT chest: Moderate bilateral pleural effusions with associated bibasilar airspace consolidation. Mild patchy airspace disease in the lingula and right middle lobe. 3. Diffuse soft tissue prominence of the mid to distal esophagus with esophageal stent in place consistent with history of esophageal CA. CV: Continue to wean off pressors ( Levophed, Vasopressin) Maintain MAP > 65 mmHg. Lactic acid cleared Echo from 01/07 showed EF 60% to 65%. : Monitor renal function, intakes and outputs and avoid nephrotoxins. Renal is following- Cr is improving 1.17 today from 1.86 Diurese with Bumex 2mg IV x1 (fluid overload) GI: OGT to LIMWS ( 650ml gastric drainage in 24 hrs) Monitor LFT's, US liver: Cirrhotic appearing liver with trace ascites in the pelvis. Gallbladder wall thickening and mild pericholecystic fluid without gallstone hepatitis profile pending on Protonix 40 milligrams IV daily for GI prophylaxis. CT abdomen/pelvis: no evidence for bowel infarction or perforation. bilateral lower lobe airspace consolidation. Diffusely prominent distal esophagus with distal esophageal stent in place. NGT courses through the stent with tip just beyond the GE junction. Cirrhotic appearing liver without evidence for significant ascites or focal drainable fluid collection GI eval might need endoscopy . ID: Continue with abx (Levaquin, Cefepime, Micafungin, Vancomycin, Flagyl) ID is following Monitor for signs of infection which include fever and WBCs. Follow up on blood, sputum, urine cultures: NGTD Strep pneumoniae and Legionella urinary antigen negative. Heme: Monitor CBC, transfuse if Hgb < 7.0 Endo: SSI with Accu-Chek q. 4 hours for glycemic control. GI prophylaxis with Protonix 40 milligrams daily. DVT prophylaxis with SCDs. Lines: Right Femoral Central line placed by ED 02/01, Right femoral Art Line placed 01/31 Palliative care consulted to asses with goals of care CCT 30 mins Dixie Navarrete MD Feb 02, 2017 07:37
[2017-02-02] MEDS ORDERED: BUMETANIDE INJ 1 MG/4 ML VIAL IV PUSH ONE (08:00)
--- NOTE | 2017-02-02 08:42 | PD.CONS ---
HPI History of Present Illness This is a 61 year old male with esophageal cancer who was recently hospitalized from 11/30/16-01/29/17 for upper gi bleeding, esophageal cancer, acute kidney injury, NSTEMI, atrial fibrillation, bacteremia, metabolic encephalopathy, DM, and respiratory failure rleated to COPD, bilateral pleural effusions. Prior to this hospitalization, he was evaluated with PET Scan (10/28/16)----> negative examination of the head and neck, findings characteristic of esophageal neoplasm. S/P EGD/Colonoscopy (11/20/16)----> There was a long stricture i the mid esophagus and distal esophagus, multiple biopsies were performed, the mucosa of the stomach appeared normal, duodenal mucosa showed no abnormalities in the entire duodenum, retroflexed views revealed a small hiatal hernia; nine sessile polyps ranging from 4-12 mm in size were found at the cecum, in the ascending colon, descending colon, sigmoid colon, and rectum; polypectomy was performed using snare cautery, moderate diverticulosis was noted in the left colon, retroflexed views revealed internal grade I hemorrhoids, a digital rectal exam was performed and revealed no abnormalities of the anus. Pathology revealed invasive adenocarcinoma- distal esophagus, descending colon polyp and rectosigmoid polyp both benign hyperplastic colonic polyp, no adenomatous change or malignancy is seen. During his last admission, he was evaluated by our service for esophageal cancer with odynophagia/dysphagia. hospitalization, he was evaluated with He was evaluated with barium swallow (12/20/16)---> 1. The distal half of the esophagus demonstrates irregular luminal narrowing consistent with the patient's history of esophageal adenocarcinoma. 2. Mild dilatation of the esophagus immediately proximal to the esophageal mass. However , there are no signs of obstruction. 3. Small hiatal hernia. He underwent EUS with esophageal stent placement (12/25/16)----> esophageal ca T3 N0 Mx, large friable mass with oozing, food and debris in esophagus, lengthy process to clean out. He was evaluated by oncology/radiation oncology and underwent XRT simulation with the plan for erbitux and radiation as outpatient. He was discharged on 01/29 to a local nursing facility. The patient was then sent to the emergency room [facility] a local [facility] for hypoxemia and severe respiratory distress and he was subsequently intubated and placed on mechanical ventilation in the ER. While in the ER, he went into PEA arrest and received epinephrine, bicarb with return of spontaneous circulation. He is now in the intensive care unit, sedated on the vent. GI has been consulted for upper gastrointestinal bleeding. He was noted to have a drop in Hgb from 8.2/25.4 to 7.6/23.6 and he had a small amount of red tinged gastric secretions in his OGT. The patient is sedated, but awake and denies any nausea or abdominal pain. He is not having any black tarry stool. (Nga Ramos) PFSH Past Medical History Atrial fibrillation CAD Upper GI bleeding Respiratory failure COPD Pleural effusins Esophageal cancer Dysphagia secondary to esophageal cancer HTN Parotid gland and neck cancer, squamous cell Skin cancer Hyperlipidemia CAD DM Esophageal mass Colon polyps Liver cirrhosis Hx HCV, S/P successful tx with interferon/ribavirin Pneumonia Past Surgical History Appendectomy Liver Biopsy Port Placement EGD/Colonoscopy Moh procedure EUS with stent placement Cardiac cath with stent placement (Nga Ramos) Coded Allergies: penicillin G (Unverified Allergy, Mild, Hives, 12/30/16) Medications Allergies Coded Allergies Type Severity Reaction Last Updated Verified penicillin G Allergy Mild Hives 12/30/16 No Active Scripts Medications Dose Route/Sig Max Daily Dose Days Date Category Dose Instructions Aspirin Low Dose (Aspirin) 81 Mg Chew 81 Mg PO DAILY 01/31/17 Reported Milk of Magnesia Liq (Magnesium Hydroxide) 400 Mg/5 Ml Susp 30 Ml PO HS PRN 01/31/17 Reported Enema Disposable (Sodium Phosphates) 19 Gram-7 Gram/118 Ml Tash 1 Applic RECTAL ONCE PRN 01/31/17 Reported Dulcolax Supp (Bisacodyl) 10 Mg Supp 10 Mg RECTAL DAILY PRN 01/31/17 Reported Citroma Liq (Magnesium Citrate) 300 Ml Liq 296 Ml PO IN THE AM PRN 01/31/17 Reported Tylenol (Acetaminophen) 325 Mg Tab 650 Mg PO Q4H PRN 01/31/17 Reported Ocuvite Lutein 25-5 mg Softgel (Lutein/Zeaxanthin) 25 Mg-5 Mg Capsule 1 Cap PO DAILY 01/31/17 Reported Santyl (Collagenase) 250 Unit/Gram Oin 1 Applic TOPICAL DAILY 30 01/29/17 Rx Potassium Chloride ER (Potassium Chloride) 20 Meq Tab 20 Meq PO BID 01/29/17 Rx Prednisone 5 Mg Tab 5 Mg PO Q48H 01/29/17 Rx Pantoprazole (Pantoprazole Sodium) 40 Mg Tab 40 Mg PO Q12HR 01/29/17 Rx Sucralfate Liq (Sucralfate) 1 Gram/10 Ml Bea 1 Gm PO ACHS 30 01/29/17 Rx Polyethylene Glycol 3350 Powder (Polyethylene Glycol) 17 Gram Pow 17 Gm PO DAILY 01/29/17 Rx Furosemide 40 Mg Tab 40 Mg PO BID@09,18 01/29/17 Rx Restoril (Temazepam) 15 Mg Cap 15 Mg PO HS PRN 01/29/17 Rx Ativan (Lorazepam) 0.5 Mg Tab 0.5 Mg PO Q8H PRN 01/29/17 Rx Diltiazem (Diltiazem HCl) 90 Mg Tab 90 Mg PO Q6H 01/29/17 Rx Metoprolol Tartrate 25 Mg Tab 25 Mg PO Q8HR 01/29/17 Rx Amiodarone (Amiodarone HCl) 200 Mg Tab 200 Mg PO Q12HR 01/29/17 Rx Plavix (Clopidogrel Bisulfate) 75 Mg Tab 75 Mg PO DAILY 01/29/17 Rx Duoneb (Ipratropium-Albuterol Neb) 0.5-2.5 Mg/3 Ml Neb 1 Ampule INH Q2HR NEB PRN 01/29/17 Rx Oxycodone (Oxycodone HCl) 5 Mg Tab 5 Mg PO Q4H PRN 12/17/16 Rx B-12 (Cyanocobalamin) 1,000 Mcg Subl 1,000 Mcg PO DAILY 11/12/16 Reported Vitamin D3 (Cholecalciferol) 1,000 Unit Tab 1,000 Units PO DAILY 11/12/16 Reported Levothyroxine (Levothyroxine Sodium) 50 Mcg Tab 50 Mcg PO DAILY 11/12/16 Reported Atorvastatin (Atorvastatin Calcium) 40 Mg Tab 40 Mg PO HS 11/12/16 Reported Metformin (Metformin HCl) 1,000 Mg Tab 1,000 Mg PO BIDPC 11/12/16 Reported With meals Lantus Inj (Insulin Glargine) 1,000 Unit/10 Ml Vial 40 Units SQ HS 11/12/16 Reported Family History Unable to obtain Social History In a local nursing facility, prior hx of drinking occasionally and smoking 1PPD. (Nga Ramos) Review of Systems Gastrointestinal: DENIES: Abdominal pain, Nausea ROS Unable to obtain- limited, on vent. (Nga Ramos) GI Exam Vitals I&O Vital Signs Date Time Temp Pulse Resp B/P (MAP) Pulse Ox O2 Delivery O2 Flow Rate FiO2 02/02/17 07:34 99 40 02/02/17 06:00 85 02/02/17 04:10 100 40 02/02/17 04:00 40 02/02/17 04:00 85 02/02/17 04:00 97.1 85 18 129/42 (71) 100 02/02/17 02:40 88 137/40 02/02/17 02:00 87 02/02/17 01:48 99 40 02/02/17 00:00 40 02/02/17 00:00 97.3 90 18 135/42 (73) 99 02/02/17 00:00 90 02/01/17 22:40 98 40 02/01/17 22:00 90 02/01/17 20:10 99 40 02/01/17 20:00 40 02/01/17 20:00 97.9 89 18 139/47 (77) 99 02/01/17 20:00 89 02/01/17 19:57 89 108/54 02/01/17 18:51 88 131/38 02/01/17 18:00 90 02/01/17 16:00 84 02/01/17 16:00 40 02/01/17 16:00 40 02/01/17 16:00 97.6 84 18 102/49 (66) 98 123/44 (70) 02/01/17 15:02 98 40 02/01/17 14:55 84 120/44 02/01/17 14:00 90 02/01/17 12:00 40 02/01/17 12:00 98.0 91 100/49 (66) 121/44 (69) 02/01/17 12:00 91 02/01/17 12:00 40 02/01/17 10:34 89 120/54 02/01/17 10:20 96 40 02/01/17 10:00 90 I/O 02/01/17 02/01/17 02/01/17 02/02/17 02/02/17 02/02/17 07:00 15:00 23:00 07:00 15:00 23:00 Intake Total 2248 ml 1000 ml 700 ml 550 ml Output Total 175 ml 1500 ml 1500 ml Balance 2073 ml 1000 ml -800 ml -950 ml Intake Oral 0 ml 0 ml IV Total 1998 ml 1000 ml 600 ml 550 ml Tube Feeding 100 ml 0 ml Packed Cells 250 ml Output Urine Total 175 ml 1150 ml 1200 ml Gastric Drainage Total 0 ml 350 ml 300 ml # Bowel Movements 0 0 Imaging Last Impressions Liver Ultrasound 02/01/17 0000 Signed Impressions: Service Date/Time: Wednesday, February 01, 2017 16:32 - CONCLUSION: 1. Cirrhotic appearing liver with trace ascites in the pelvis. 2. Gallbladder wall thickening and mild pericholecystic fluid without gallstones. These findings are routinely seen in the setting of cirrhosis. If there is significant clinical concern regarding cholecystitis, HIDA scan may be performed. 3. Bilateral pleural effusions. Escobar Joiner MD Chest X-Ray 01/31/17 0828 Signed Impressions: Service Date/Time: Tuesday, January 31, 2017 10:37 - CONCLUSION: 1. ET tube in good position. 2. Clinically. 3. Bilateral pleural effusions with partial right. 4. Consolidation/atelectasis at the bases being worse on the right. Washington Chou MD Chest CT 01/31/17 0000 Signed Impressions: Service Date/Time: Tuesday, January 31, 2017 12:52 - CONCLUSION: 1. Moderate bilateral pleural effusions with associated bibasilar airspace consolidation. 2. Mild patchy airspace disease in the lingula and right middle lobe. 3. Diffuse soft tissue prominence of the mid to distal esophagus with esophageal stent in place consistent with history of esophageal CA. Administered contrast extends to the proximal esophagus. 4. ETT in good position. NGT just be in the GE junction. 5. Prominent coronary artery calcifications. Escobar Joiner MD Abdomen/Pelvis CT 01/31/17 0000 Signed Impressions: Service Date/Time: Tuesday, January 31, 2017 12:52 - CONCLUSION: 1. No definite CT findings to explain patient's lactic acidosis. Specifically, no evidence for bowel infarction or perforation. 2. Moderate bilateral pleural effusions with associated bilateral lower lobe airspace consolidation. 3. Diffusely prominent distal esophagus with distal esophageal stent in place. NGT courses through the stent with tip just beyond the GE junction. 4. Cirrhotic appearing liver without evidence for significant ascites or focal drainable fluid collection. Escobar Joiner MD Laboratory Test 02/01/17 09:48 02/01/17 12:05 02/01/17 14:30 02/02/17 03:45 Blood Gas Puncture Site ART LINE Blood Gas Patient Temperature 98.6 Blood Gas HCO3 29 mmol/L Blood Gas Base Excess 3.4 mmol/L Blood Gas Oxygen Saturation 93 % Arterial Blood pH 7.32 Arterial Blood Partial Pressure CO2 57 mmHg Arterial Blood Partial Pressure O2 92 mmHg Arterial Blood Oxygen Content 10.7 Vol % Arterial Blood Carboxyhemoglobin 3.0 % Arterial Blood Methemoglobin 0.9 % Blood Gas Hemoglobin 8.0 G/DL Oxygen Delivery Device VENTILATOR Blood Gas Ventilator Setting AC16/500/+5PEEP Blood Gas Inspired Oxygen 40 % Lactic Acid Level 1.7 mmol/L Potassium Level 5.1 MEQ/L 4.3 MEQ/L White Blood Count 11.2 TH/MM3 Red Blood Count 2.65 MIL/MM3 Hemoglobin 7.6 GM/DL Hematocrit 23.6 % Mean Corpuscular Volume 89.1 FL Mean Corpuscular Hemoglobin 28.8 PG Mean Corpuscular Hemoglobin Concent 32.3 % Red Cell Distribution Width 18.0 % Platelet Count 145 TH/MM3 Mean Platelet Volume 8.7 FL Neutrophils (%) (Auto) 89.6 % Lymphocytes (%) (Auto) 5.7 % Monocytes (%) (Auto) 4.6 % Eosinophils (%) (Auto) 0.0 % Basophils (%) (Auto) 0.1 % Neutrophils # (Auto) 10.0 TH/MM3 Lymphocytes # (Auto) 0.6 TH/MM3 Monocytes # (Auto) 0.5 TH/MM3 Eosinophils # (Auto) 0.0 TH/MM3 Basophils # (Auto) 0.0 TH/MM3 CBC Comment DIFF FINAL Differential Comment Blood Urea Nitrogen 42 MG/DL Creatinine 1.17 MG/DL Random Glucose 191 MG/DL Total Protein 5.9 GM/DL Albumin 2.1 GM/DL Calcium Level 7.4 MG/DL Phosphorus Level 3.5 MG/DL Magnesium Level 1.8 MG/DL Alkaline Phosphatase 82 U/L Aspartate Amino Transf (AST/SGOT) 342 U/L Alanine Aminotransferase (ALT/SGPT) 474 U/L Total Bilirubin 0.5 MG/DL Sodium Level 129 MEQ/L Chloride Level 92 MEQ/L Carbon Dioxide Level 29.1 MEQ/L Anion Gap 8 MEQ/L Estimat Glomerular Filtration Rate 64 ML/MIN Protein Corrected Calcium 8.1 MG/DL Random Cortisol 84.8 MCG/DL Date/Time Source Procedure Growth Status 01/31/17 08:35 Blood Peripheral Aerobic Blood Culture - Preliminary NO GROWTH IN 1 DAY Resulted 01/31/17 08:35 Blood Peripheral Anaerobic Blood Culture - Preliminary NO GROWTH IN 1 DAY Resulted 01/31/17 21:40 Sputum Endotracheal Gram Stain - Final Resulted 01/31/17 21:40 Sputum Endotracheal Sputum Culture - Preliminary HEAVY GROWTH NORMAL RESPIRATORY EDE... Resulted 01/31/17 13:35 Urine Catheterized Urine Legionella Antigen - Final PRESUMPTIVE NEGATIVE FOR LEGIONELLA P... Complete 01/31/17 13:35 Urine Catheterized Urine Streptococcus pneumoniae Antigen (M - Final PRESUMPTIVE NEGATIVE FOR STREPTOCOCCU... Complete Physical Examination HEENT: Normocephalic; atraumatic; no jaundice. CHEST: Resp even/unlabored, diminished, OETT to vent CARDIAC: RRR ABDOMEN: Soft, obese, nondistended, nontender; no hepatosplenomegaly; bowel sounds are present in all four quadrants. NGT with scant amount red tinged gastric secretions EXTREMITIES: Generalized edema. SKIN: Normal; no rash; no jaundice. QUOTATION CHECKER: Sedated, but awake and able to answer simple yes/no questions. (Nga Ramos) Assessment and Plan Plan ASSESSMENT: - Upper GIB. HH dropped from 8.2/25.4 to 7.6/23.6. Scant amount of red tinged gastric secretions in OGT. GI consulted for GI bleeding, will schedule for EGD today. Add Protonix. - Anemia, likely multifactorial. HH dropped from 8.2/25.4 to 7.6/23.6. - Poor po intake, Dysphagia/Odynophagia. Barium Swallow X-Ray 12/20/16--1. The distal half of the esophagus demonstrates irregular luminal narrowing consistent with the patient's history of esophageal adenocarcinoma. 2. Mild dilatation of the esophagus immediately proximal to the esophageal mass. However, there are no signs of obstruction. 3. Small hiatal hernia. S/P EUS with esophageal stent placement --> esophageal ca T3 N0 Mx, large friable mass with oozing, food and debris in esophagus, lengthy process to clean out. Pt states he has not been taking much po since his discharge. - Esophageal cancer. PET Scan (10/28/16)----> negative examination of the head and neck, findings characteristic of esophageal neoplasm. S/P EGD/Colonoscopy (11/20/16)----> There was a long stricture i the mid esophagus and distal esophagus, multiple biopsies were performed, the mucosa of the stomach appeared normal, duodenal mucosa showed no abnormalities in the entire duodenum, retroflexed views revealed a small hiatal hernia; nine sessile polyps ranging from 4-12 mm in size were found at the cecum, in the ascending colon, descending colon, sigmoid colon, and rectum; polypectomy was performed using snare cautery, moderate diverticulosis was noted in the left colon, retroflexed views revealed internal grade I hemorrhoids, a digital rectal exam was performed and revealed no abnormalities of the anus. Pathology revealed invasive adenocarcinoma- distal esophagus, descending colon polyp and rectosigmoid polyp both benign hyperplastic colonic polyp, no adenomatous change or malignancy is seen. S/P XRT Simulation. Plan is for erbitux, radiation as outpatient. Pt reports that he has not started tx yet. - Elevated LFTs, Liver cirrhosis. Abdomen MRI 12/17/16--1. No acute finding is identified to explain the abdominal pain. 2. Stable thickening of the distal esophagus. There is a single mildly enlarged left gastric lymph node measuring 12 x 10 mm. 3. Moderate sized bilateral pleural effusions, left larger than right, with associated compressive atelectasis. Unclear if he has hx of cirrhosis. There is mention of hx of HCV in EMR, but patient has had undetectable viral load as far back as 2001. Pt does report he has a history of HCV and was successfully treated with Interferon/ribavirin in the past. Iron saturation 4.1%, Ferritin 124, Hepatitis C antibodies (+), viral load undetectable, TERRIE negative, ASMA < 20.0, AMA neg, Ceruloplasmin 40 and alpha 1 antitrypsin 298. Pt does not currently drink, but states that he was a heavy drinker in the past. US Liver (02/01/17)--> Cirrhotic appearing liver with trace ascites in the pelivs. GB wall thickening and mild pericholecystic fluid without gallstones. These findings are routinely seen in the setting of cirrhosis. If there is significant clinical concern regarding cholecystitis, HIDA scan may be performed, bilateral pleural effusions. Pt with increase in LFTs since last hospitalization, but also went into PEA arrest, so it is possible some of this is shocked liver. He does have some gb wall thickening and mild pericholecystic fluid, but he is completely nontender on abdominal exam. - S/P PEA Arrest (02/01/17). On vasopressin. - Respiratory failure, COPD, Bilateral pleural effusions. Vent per CCM - Leukocytosis. Micafungin, Cefepime, Flagyl - Thrombocytopenia/Coagulopathy. Plt 145. - CLARA with electrolyte abnormalities, Hyponatremia. Improved. Na+ 129. 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 S/P mohs surgery by a cooperative extension agent in September of 2015 and shortly after this, developed a mass near the surgical area. S/P at [facility] with Dr. Valdovinos in June of 2016----> underwent extensive head and neck surgery involving a parotidectomy and radical neck dissection in September of 2016. Because of high risk features of local recurrence with perineural invasion and positive margins, it was recommended that he have concurrent chemoradiation therapy. He was evaluated by Dr. Cross for radiation and seen by Dr. eBll for oncology. PET Scan ()---> negative examination of the head and neck, findings characteristic of esophageal neoplasm. Direct visualization is recommended. - Hx HTN, hyperlipidemia, CAD, DM per attending. PLAN: - Plan for egd today - Obtain consents - NPO - Add Protonix 40mg IV BID - Monitor labs - Supportive care - Further recommendations to follow based on results of above - Pt seen and examined by Dr. Tejeda and myself and this note is written on his behalf (Nga Ramos) Physician Comments Patient seen and examined Agree with above Monitor labs Continue with current supportive care As we were getting ready to do the EGD it was noted that the patient had significant tachycardia with a heart rate of 200 and so the procedure was put on hold and it was noted that he was hemodynamically stable with no active bleeding at this point we will proceed with the endoscopy once patient is more stable (Ortiz Tejeda MD) Nga Ramos Feb 02, 2017 08:42 Ortiz Tejeda MD Feb 02, 2017 20:52
[2017-02-02] MEDS: metroNIDAZOLE 500 MG INJ 100 ML IV SCH ×2 (09:00→16:25)
[2017-02-02] MEDS: ASPIRIN EC 81 MG TABEC PO SCH (09:00)
[2017-02-02] MEDS: CLOPIDOGREL 75 MG TAB PO SCH (09:00)
--- NOTE | 2017-02-02 09:01 | RADRPT ---
EXAM DATE/TIME: 02/02/2017 07:55 [facility] COMPARISON: CHEST SINGLE AP, January 31, 2017, 10:37. INDICATIONS : Short of breath. MEDICAL HISTORY : Diabetes mellitus type 2. Squamous cell carcinoma, esophageal carcinoma SURGICAL HISTORY : Coronary artery stent. Appendectomy. Port removed. ENCOUNTER: Subsequent ACUITY: 1 month PAIN SCORE: Non-responsive. LOCATION: Bilateral chest FINDINGS: ET tube and nasogastric tube are in good position. The heart remains enlarged. Moderate bibasilar p arenchymal changes process, slowly improving in the interval. CONCLUSION: Slow interval improvement. Supportive apparatus good position. Everett Pollock MD FACR on February 02, 2017 at 8:58 Board Certified Radiologist. This report was verified electronically.
--- NOTE | 2017-02-02 09:52 | HHI.IDPN ---
Subjective Subjective Remarks Chart reviewed Patient known to me from his previous admissions He has known head and neck CA, and esophageal mass, S/P esophageal stent during his last hospitalization He was treated for high grade MSSA bacteremia, due to infected port Port removed and he completed Abx Rx with Ancef on Jan 15 He was also treated for PSAE PNA during his last admission He also had evidence of serositis and had pleural effusions and pericardial effusions that were both drained, C/S negative (but he was on Abx), cytology negative for malignancy He was D/C to SNF 01/30 and readmitted 01/31 Evidence of sepsis on readmission with shock On the vent He is awake and responding He is on levophed and vasopressin WBC is elevated LFT also elevated Creatinine initially elevated and has improved WBC 22K and is down to 11K CT A/P with pleural effusions and consolidation, liver cirrhosis and ascites CXR today improving Antibiotics cefepime levaquine micafungin flagyl vancomycin Lines Femoral A line and TLC Past Medical History Reviewed Allergies: Coded Allergies: penicillin G (Unverified Allergy, Mild, Hives, 12/30/16) Objective . Vital Signs Date Time Temp Pulse Resp B/P (MAP) Pulse Ox O2 Delivery O2 Flow Rate FiO2 02/02/17 08:25 40 02/02/17 07:34 99 40 02/02/17 06:00 85 02/02/17 04:10 100 40 02/02/17 04:00 40 02/02/17 04:00 85 02/02/17 04:00 97.1 85 18 129/42 (71) 100 02/02/17 02:40 88 137/40 02/02/17 02:00 87 02/02/17 01:48 99 40 02/02/17 00:00 40 02/02/17 00:00 97.3 90 18 135/42 (73) 99 02/02/17 00:00 90 02/01/17 22:40 98 40 02/01/17 22:00 90 02/01/17 20:10 99 40 02/01/17 20:00 40 02/01/17 20:00 97.9 89 18 139/47 (77) 99 02/01/17 20:00 89 02/01/17 19:57 89 108/54 02/01/17 18:51 88 131/38 02/01/17 18:00 90 02/01/17 16:00 84 02/01/17 16:00 40 02/01/17 16:00 40 02/01/17 16:00 97.6 84 18 102/49 (66) 98 123/44 (70) 02/01/17 15:02 98 40 02/01/17 14:55 84 120/44 02/01/17 14:00 90 02/01/17 12:00 40 02/01/17 12:00 98.0 91 100/49 (66) 121/44 (69) 02/01/17 12:00 91 02/01/17 12:00 40 02/01/17 10:34 89 120/54 02/01/17 10:20 96 40 02/01/17 10:00 90 . Laboratory Tests Test 01/31/17 13:35 01/31/17 20:15 02/01/17 04:45 02/02/17 03:45 White Blood Count 22.1 TH/MM3 16.6 TH/MM3 14.1 TH/MM3 11.2 TH/MM3 Red Blood Count 2.57 MIL/MM3 2.82 MIL/MM3 2.80 MIL/MM3 2.65 MIL/MM3 Hemoglobin 7.2 GM/DL 8.2 GM/DL 8.2 GM/DL 7.6 GM/DL Hematocrit 23.7 % 25.8 % 25.4 % 23.6 % Mean Corpuscular Volume 92.5 FL 91.5 FL 90.7 FL 89.1 FL Mean Corpuscular Hemoglobin 28.0 PG 29.1 PG 29.2 PG 28.8 PG Mean Corpuscular Hemoglobin Concent 30.3 % 31.8 % 32.2 % 32.3 % Red Cell Distribution Width 18.9 % 18.2 % 17.9 % 18.0 % Platelet Count 215 TH/MM3 201 TH/MM3 197 TH/MM3 145 TH/MM3 Mean Platelet Volume 8.5 FL 8.7 FL 8.2 FL 8.7 FL Neutrophils (%) (Auto) 88.4 % 93.5 % 82.8 % 89.6 % Lymphocytes (%) (Auto) 3.1 % 2.7 % 9.5 % 5.7 % Monocytes (%) (Auto) 8.2 % 3.8 % 7.5 % 4.6 % Eosinophils (%) (Auto) 0.1 % 0.0 % 0.0 % 0.0 % Basophils (%) (Auto) 0.2 % 0.0 % 0.2 % 0.1 % Neutrophils # (Auto) 19.5 TH/MM3 15.6 TH/MM3 11.6 TH/MM3 10.0 TH/MM3 Lymphocytes # (Auto) 0.7 TH/MM3 0.4 TH/MM3 1.3 TH/MM3 0.6 TH/MM3 Monocytes # (Auto) 1.8 TH/MM3 0.6 TH/MM3 1.1 TH/MM3 0.5 TH/MM3 Eosinophils # (Auto) 0.0 TH/MM3 0.0 TH/MM3 0.0 TH/MM3 0.0 TH/MM3 Basophils # (Auto) 0.0 TH/MM3 0.0 TH/MM3 0.0 TH/MM3 0.0 TH/MM3 CBC Comment AUTO DIFF DIFF FINAL DIFF FINAL DIFF FINAL Differential Comment Laboratory Tests Test 01/31/17 13:35 01/31/17 20:15 02/01/17 01:20 02/01/17 04:45 Blood Urea Nitrogen 35 MG/DL 40 MG/DL 44 MG/DL Creatinine 1.90 MG/DL 1.73 MG/DL 1.86 MG/DL Random Glucose 193 MG/DL 304 MG/DL 224 MG/DL Calcium Level 7.8 MG/DL 8.1 MG/DL 7.3 MG/DL Sodium Level 131 MEQ/L 128 MEQ/L 128 MEQ/L Potassium Level 5.1 MEQ/L 5.7 MEQ/L 5.7 MEQ/L Chloride Level 96 MEQ/L 92 MEQ/L 91 MEQ/L Carbon Dioxide Level 17.5 MEQ/L 24.3 MEQ/L 28.9 MEQ/L Anion Gap 18 MEQ/L 12 MEQ/L 8 MEQ/L Estimat Glomerular Filtration Rate 36 ML/MIN 41 ML/MIN 37 ML/MIN Lactic Acid Level 11.1 mmol/L 5.7 mmol/L 2.9 mmol/L Total Protein 6.1 GM/DL Albumin 2.2 GM/DL Alkaline Phosphatase 86 U/L Aspartate Amino Transf (AST/SGOT) 520 U/L Alanine Aminotransferase (ALT/SGPT) 452 U/L Total Bilirubin 0.5 MG/DL Protein Corrected Calcium 7.8 MG/DL Test 02/01/17 12:05 02/01/17 14:30 02/02/17 03:45 Lactic Acid Level 1.7 mmol/L Potassium Level 5.1 MEQ/L 4.3 MEQ/L Blood Urea Nitrogen 42 MG/DL Creatinine 1.17 MG/DL Random Glucose 191 MG/DL Total Protein 5.9 GM/DL Albumin 2.1 GM/DL Calcium Level 7.4 MG/DL Phosphorus Level 3.5 MG/DL Magnesium Level 1.8 MG/DL Alkaline Phosphatase 82 U/L Aspartate Amino Transf (AST/SGOT) 342 U/L Alanine Aminotransferase (ALT/SGPT) 474 U/L Total Bilirubin 0.5 MG/DL Sodium Level 129 MEQ/L Chloride Level 92 MEQ/L Carbon Dioxide Level 29.1 MEQ/L Anion Gap 8 MEQ/L Estimat Glomerular Filtration Rate 64 ML/MIN Protein Corrected Calcium 8.1 MG/DL Random Cortisol 84.8 MCG/DL Microbiology Date/Time Source Procedure Growth Status 01/31/17 08:35 Blood Peripheral Aerobic Blood Culture - Preliminary NO GROWTH IN 1 DAY Resulted 01/31/17 08:35 Blood Peripheral Anaerobic Blood Culture - Preliminary NO GROWTH IN 1 DAY Resulted 01/31/17 08:30 Blood Peripheral Aerobic Blood Culture - Preliminary NO GROWTH IN 1 DAY Resulted 01/31/17 08:30 Blood Peripheral Anaerobic Blood Culture - Preliminary NO GROWTH IN 1 DAY Resulted 01/31/17 21:40 Sputum Endotracheal Gram Stain - Final Resulted 01/31/17 21:40 Sputum Endotracheal Sputum Culture - Preliminary HEAVY GROWTH NORMAL RESPIRATORY EDE... Resulted 01/31/17 16:30 Sputum Expectorated Sputum Gram Stain - Final Resulted 01/31/17 16:30 Sputum Expectorated Sputum Sputum Culture - Preliminary HEAVY GROWTH NORMAL RESPIRATORY EDE... Resulted 01/31/17 13:35 Urine Catheterized Urine Legionella Antigen - Final PRESUMPTIVE NEGATIVE FOR LEGIONELLA P... Complete 01/31/17 13:35 Urine Catheterized Urine Streptococcus pneumoniae Antigen (M - Final PRESUMPTIVE NEGATIVE FOR STREPTOCOCCU... Complete 01/31/17 11:40 Urine Clean Catch Urine Culture - Final NO GROWTH IN 48 HOURS. Complete Imaging Chest X-Ray 02/02/17 0000 Signed Impressions: Service Date/Time: Thursday, February 02, 2017 07:55 - CONCLUSION: Slow interval improvement. Supportive apparatus good position. Everett Pollock MD FACR Liver Ultrasound 02/01/17 0000 Signed Impressions: Service Date/Time: Wednesday, February 01, 2017 16:32 - CONCLUSION: 1. Cirrhotic appearing liver with trace ascites in the pelvis. 2. Gallbladder wall thickening and mild pericholecystic fluid without gallstones. These findings are routinely seen in the setting of cirrhosis. If there is significant clinical concern regarding cholecystitis, HIDA scan may be performed. 3. Bilateral pleural effusions. Escobar Joiner MD Chest X-Ray 01/31/17 0828 Signed Impressions: Service Date/Time: Tuesday, January 31, 2017 10:37 - CONCLUSION: 1. ET tube in good position. 2. Clinically. 3. Bilateral pleural effusions with partial right. 4. Consolidation/atelectasis at the bases being worse on the right. Washington Chou MD Chest CT 01/31/17 0000 Signed Impressions: Service Date/Time: Tuesday, January 31, 2017 12:52 - CONCLUSION: 1. Moderate bilateral pleural effusions with associated bibasilar airspace consolidation. 2. Mild patchy airspace disease in the lingula and right middle lobe. 3. Diffuse soft tissue prominence of the mid to distal esophagus with esophageal stent in place consistent with history of esophageal CA. Administered contrast extends to the proximal esophagus. 4. ETT in good position. NGT just be in the GE junction. 5. Prominent coronary artery calcifications. Escobar Joiner MD Abdomen/Pelvis CT 01/31/17 0000 Signed Impressions: Service Date/Time: Tuesday, January 31, 2017 12:52 - CONCLUSION: 1. No definite CT findings to explain patient's lactic acidosis. Specifically, no evidence for bowel infarction or perforation. 2. Moderate bilateral pleural effusions with associated bilateral lower lobe airspace consolidation. 3. Diffusely prominent distal esophagus with distal esophageal stent in place. NGT courses through the stent with tip just beyond the GE junction. 4. Cirrhotic appearing liver without evidence for significant ascites or focal drainable fluid collection. Escobar Joiner MD Physical Exam GENERAL: Awake and alert, on the vent, not in distress SKIN: Warm and dry, no rash, edematous. No jaundice. NO embolic lesions HEAD: Atraumatic. Normocephalic. EYES: Pupils equal and round and reactive. NO petechia or hemorrhage. No scleral icterus. No injection or drainage. . ENT: Nose without bleeding or purulent drainage. Orally intubated NECK: Trachea midline. Supple, nontender. CARDIOVASCULAR: Regular rate and rhythm. Harsh systolic murmur at base RESPIRATORY/CHEST: Symmetric, respirations. Coarse BS bilaterally, decreased at bases GASTROINTESTINAL: Abdomen soft, non-tender, nondistended. . No guarding. Bowel sounds present. GENITOURINARY: Saxena catheter in place with yellow urine MUSCULOSKELETAL: Extremities without clubbing, cyanosis. Has edema of hands and feet, no calf tenderness. No mottling or clubbing. NEUROLOGICAL: Awake, tracking. PSYCHIATRIC: unable to assess LINE: NO evidence of infection Assessment & Plan Remarks IMPRESSION Shock, sepsis, lactic acidosis, leukocytosis > 22K on presentation - his lactic acidemia improved - source? lung, UA with some pyuria Respiratory failure Recent Rx for MSSA sepsis Recent Rx PSAE PPNA Known head and neck CA Esophageal CA, S/P stent Recent workup for pleural and pericardial effusions, no malignancy, (+) inflammation PCN allery but tolerated Cephalosporins PLAN Continue vanco Continue cefepime Continue levaquine Continue micafungin, IV flagyl Follow C/S and deescalate Abx once available Monitor progress D/W Carola Dick MD Feb 02, 2017 09:52
[2017-02-02] MEDS: DOCUSATE SODIUM 50 MG/SENNA 8.6 MG TAB PO SCH ×2 (10:04→19:51)
[2017-02-02] MEDS: LEVOFLOXACIN 500 MG PREMIX INJ 100 ML IV SCH (11:00)
--- NOTE | 2017-02-02 11:01 | HHI.NPPN ---
Subjective Interval History Renal function has improved, non oliguric. Objective Data Data Vital Signs Date Time Temp Pulse Resp B/P (MAP) Pulse Ox O2 Delivery O2 Flow Rate FiO2 02/02/17 10:51 96 40 02/02/17 08:25 40 02/02/17 07:34 99 40 02/02/17 06:00 85 02/02/17 04:10 100 40 02/02/17 04:00 40 02/02/17 04:00 85 02/02/17 04:00 97.1 85 18 129/42 (71) 100 02/02/17 02:40 88 137/40 02/02/17 02:00 87 02/02/17 01:48 99 40 02/02/17 00:00 40 02/02/17 00:00 97.3 90 18 135/42 (73) 99 02/02/17 00:00 90 02/01/17 22:40 98 40 02/01/17 22:00 90 02/01/17 20:10 99 40 02/01/17 20:00 40 02/01/17 20:00 97.9 89 18 139/47 (77) 99 02/01/17 20:00 89 02/01/17 19:57 89 108/54 02/01/17 18:51 88 131/38 02/01/17 18:00 90 02/01/17 16:00 84 02/01/17 16:00 40 02/01/17 16:00 40 02/01/17 16:00 97.6 84 18 102/49 (66) 98 123/44 (70) 02/01/17 15:02 98 40 02/01/17 14:55 84 120/44 02/01/17 14:00 90 02/01/17 12:00 40 02/01/17 12:00 98.0 91 100/49 (66) 121/44 (69) 02/01/17 12:00 91 02/01/17 12:00 40 -: 02/02/17 0345 02/02/17 0345 Physical Exam General Appearance: Well Developed Appearance Remarks intubated, on the ventilator. Neck Neck Exam: Neck Supple Pulmonary Resp Exam: Rhonchi, Diminished Breath Sounds Cardiology CV Exam: Regular, Murmur Gastrointestinal/Abdomen GI Exam: Soft, Distended Musculoskeletal MS Exam: Joints Intact Extremeties Extremities Exam: No Edema Neurologic Neuro Remarks unresponsive. Assessment/Plan Problem List: (1) Acute kidney injury ICD Codes: N17.9 - Acute kidney failure, unspecified Plan: Renal function has improved. Avoid nephrotoxic agents. (2) Hyperkalemia ICD Codes: E87.5 - Hyperkalemia Plan: Resolved. (3) Hypo-osmolality and hyponatremia ICD Codes: E87.1 - Hypo-osmolality and hyponatremia Plan: Likely due to non osmotic release of ADH due to hypotension. Improved, stable. Cortisol level is acceptable. (4) Sepsis ICD Codes: A41.9 - Sepsis, unspecified organism Plan: Recently was diagnosed with Pseudomonas pneumonia. ID has been consulted. He is on Cefepime, Levaquin, Micafungin and Vancomycin. (5) Lactic acidosis ICD Codes: E87.2 - Acidosis Status: Acute Plan: Could be due to sepsis and hypotension, and hypoperfusion. However he was on Metformin at his facility. Therefore Metformin induced lactic acidosis is a definite possibility. Currently on bicarbonate drip. Monitor. Repeat lactic acid level. (6) Esophageal adenocarcinoma ICD Codes: C15.9 - Malignant neoplasm of esophagus, unspecified Status: Acute Plan: Poor prognosis. Plan I will sign off at this time. Pratik Barrera MD Feb 02, 2017 11:01
[2017-02-02] MEDS ORDERED: PHARMACY ORDERED LAB ONE (11:45)
[2017-02-02] MEDS: VANCOMYCIN INJ 1,600 MG in SODIUM CHLORID 0.9% 500 ML INJ 500 ML IV SCH (12:00)
[2017-02-02] MEDS: VASOPRESSIN INJ 40 UNITS in DEXTROSE 5% IN WATER 100ML INJ 98 ML IV SCH ×2 (12:40)
--- NOTE | 2017-02-02 14:31 | PD.WCN.NOT ---
Wound Consult Description: Received consult for sacral wound management from Doctor Landon Communicated with: ROMAN Arreola [facility], Luly [facility] and Doctor Navarrete Recommendation: Please cleanse wound to sacrococcygeal area with normal saline only. Apply Santyl ointment david thick to wound bed before applying slightly moistened Maxorb II(Calcium Alginate) dressing just over wound bed. Cover with ABD pad and tape. Change dressing daily. Please apply skin prep to periwound and before applying adhesives to skin. Additional Information: Patient seen on 5th floor [facility] for evaluation of sacral wound. 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 Wound bed presents with ~60 % yellow adherent slough, ~40% pink tissue.Wound margins are uneven with DTI noted at 3 o'clock and maceration noted from 4 to 2 o'clock.Wound drainage is minimal and sero-sanguinous with mild odor.Cleansed wound with normal saline and left open to air. ROMAN Mauricio and ROMAN Arreola to apply dressing when supplies and santyl ointment are obtained. Wound care will continue to follow patient weekly until discharge. Sarah Friedman [facility] Feb 02, 2017 14:31
[2017-02-02 14:34] LABS: HEMATOCRIT 23.4 % (39.0-51.0); REVIEW FLAG FINAL
[2017-02-02] MEDS: fentaNYL DRIP 250 ML IV PRN ×2 (16:45→19:50)
--- NOTE | 2017-02-02 17:38 | PD.CONS ---
Consult Service Palliative Care Consult Requested By Dr. Navarrete . Primary Care Physician Unknown Reason for Consultation a. To assist with evaluation and management of symptoms including: Shortness of breath, Debility. b. To assist medical decision maker(s) with: better understanding of current medical conditions; weighing benefits/burdens of medical treatment options; making medical treatment decisions. . 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 Patient was recently admitted from 11/30/16 to 01/30/17 for elevated troponin, dysphagia, and esophageal cancer. Patient presented to the ED via EMS 02/02/17 from a half-way for shortness of breath and weakness. Patient was found to be hypotensive, hypoxic with his heart rate ranging from 30s -40s. Patient sustained PEA arrest , underwent CPR and ACLS drugs with ROS, subsequently intubated and placed on mechanical ventilation. Patient was admitted for further management. ED Laboratory workup revealed WBC 22.1, hemoglobin 7.2, platelets 215. Chest CT revealed moderate bilateral pleural effusions with associated bibasilar airspace consolidation. CT Abdomen/pelvis showed moderate bilateral pleural effusions and cirrhotic appearing liver without evidence for significant ascites or focal drainable fluid collection. 02/01/17 Ultrasound Abdomen liver revealed cirrhotic liver with trace ascites in the pelvis. Nephrology consult Dr. Barrera for acute kidney injury and hyperkalemia. Medical management recommended, patient a poor candidate for dialysis/ renal replacement given his current clinical condition and multiple morbidities. ID Dr. Garcia consulted for evaluation of sepsis, patient was continued on antibiotic therapy. GI consulted for low Hgb, possible GI bleeding. Patient is scheduled for an EGD today, 02/02/17. Palliative care has been consulted for further clarification of goals of care. Reviewed patient's past medical history and prior hospitalizations. Patient was recently discharged from the [facility] on 01/30/17 after hospitalization x 2 months. During hospitalization, his clinical course was complicated by NSTEMI, patient underwent PCI with bare metal stents on 11/30/16. Clinical course further complicated by persistent fever, MSSA bacteremia, worsening sepsis, A. fib with RVR and persistent respiratory failure, intubation and mechanical ventilation x3 times, pericardial effusion requiring pericardiocentesis and pleural effusion with chest tube placement. Patient seen in ICU, intubated on mechanical ventilation in moderate distress secondary to restlessness. FIO2 40%. Eyes open, spontaneously moving all extremities. Patient`s significant other Luly at bedside. Patient remains febrile, stable hemodynamically. Laboratory workup today revealing WBC 11.2, Hgb 7.6, platelet count 145. Improving renal function, BUN/creatinine 42/117. Albumin 2.1. Chest x-ray today revealing slow interval improvement. Bedside conversation with patient's significant other Luly. Medical update provided. Reviewed events leading to this hospitalization, clinical course and current medical management. Share concerns of patient overall poor prognosis given multiple chronic ongoing comorbidities, recent prolonged hospitalization x 2 months with multiple complications, malignancy, malnutrition, most recent PEA arrest and profound physical deconditioning. Discussed that patient remains at a very high risk for further complications, clinical decline and . Discussed patient's advanced directives indicating NO tracheostomy. Discussed risks, benefits and limitations of CPR given patient's clinical condition. Luly electing for patient to remain full code at this time, pending further discussion with patient's daughter Mena. Luly receptive to palliative care follow-ups. Telephone call to patient's daughter Mena La. Left message on voicemail. . Function/Cognitive Trajectory Prolonged hospitalization for the past 2 months. Patient participated in physical therapy but required significant assistance with ADLs. He was discharged to [facility] for rehabilitation, return after 1 day secondary to respiratory failure. Cognitive the client reported. . Review of Systems ROS Limitations: Clinical Condition (pATIENT INTUBATED ON MECHANICAL VENTILATION) Constitutional: COMPLAINS OF: Generalized weakness, DENIES: Fever Eyes: DENIES: Eye inflammation Ears, nose, mouth, throat: DENIES: Nasal discharge, Running Nose, Epistaxis Respiratory: COMPLAINS OF: Shortness of breath, DENIES: Cough Cardiovascular: COMPLAINS OF: Lower Extremity Edema Gastrointestinal: DENIES: Bloody stools, Vomiting Genitourinary: COMPLAINS OF: Urinary incontinence Musculoskeletal: COMPLAINS OF: Decreased range of motion Integumentary: COMPLAINS OF: Excessive dryness, DENIES: Rash Hematologic/Lymphatics: COMPLAINS OF: Bruising Immunologic/Allergic: DENIES: Eczema Neurologic: DENIES: Seizures, Tremor Psychiatric: COMPLAINS OF: Anxiety Other ROS: ROS limited due to clinical condition. ROS obtained from medical records and clinical observation. . Past Family Social History Coded Allergies: penicillin G (Unverified Allergy, Mild, Hives, 12/30/16) Past Medical History Atrial fibrillation CAD Upper GI bleeding Respiratory failure COPD Pleural effusions Esophageal cancer Dysphagia secondary to esophageal cancer HTN Parotid gland and neck cancer, squamous cell Skin cancer Hyperlipidemia CAD DM Esophageal mass Colon polyps Liver cirrhosis Hx HCV, S/P successful tx with interferon/ribavirin Pneumonia. . Past Surgical History Appendectomy Liver Biopsy Port Placement Infusaport remocal EGD/Colonoscopy MOHS procedure EUS with stent placement Cardiac cath with stent placement. . Reported Medications Santyl (Collagenase) 250 Unit/Gram Oin 1 Applic TOPICAL DAILY 30 Days Potassium Chloride ER (Potassium Chloride) 20 Meq Tab 20 Meq PO BID Prednisone 5 Mg Tab 5 Mg PO Q48H Pantoprazole (Pantoprazole Sodium) 40 Mg Tab 40 Mg PO Q12HR Sucralfate Liq (Sucralfate) 1 Gram/10 Ml Bea 1 Gm PO ACHS 30 Days Polyethylene Glycol 3350 Powder (Polyethylene Glycol) 17 Gram Pow 17 Gm PO DAILY Furosemide 40 Mg Tab 40 Mg PO BID@09,18 Restoril (Temazepam) 15 Mg Cap 15 Mg PO HS PRN Ativan (Lorazepam) 0.5 Mg Tab 0.5 Mg PO Q8H PRN Diltiazem (Diltiazem HCl) 90 Mg Tab 90 Mg PO Q6H Metoprolol Tartrate 25 Mg Tab 25 Mg PO Q8HR Amiodarone (Amiodarone HCl) 200 Mg Tab 200 Mg PO Q12HR Plavix (Clopidogrel Bisulfate) 75 Mg Tab 75 Mg PO DAILY Duoneb (Ipratropium-Albuterol Neb) 0.5-2.5 Mg/3 Ml Neb 1 Ampule INH Q2HR NEB PRN Oxycodone (Oxycodone HCl) 5 Mg Tab 5 Mg PO Q4H PRN Aspirin Low Dose (Aspirin) 81 Mg Chew 81 Mg PO DAILY Milk of Magnesia Liq (Magnesium Hydroxide) 400 Mg/5 Ml Susp 30 Ml PO HS PRN Enema Disposable (Sodium Phosphates) 19 Gram-7 Gram/118 Ml Tash 1 Applic RECTAL ONCE PRN Dulcolax Supp (Bisacodyl) 10 Mg Supp 10 Mg RECTAL DAILY PRN Citroma Liq (Magnesium Citrate) 300 Ml Liq 296 Ml PO IN THE AM PRN Tylenol (Acetaminophen) 325 Mg Tab 650 Mg PO Q4H PRN Ocuvite Lutein 25-5 mg Softgel (Lutein/Zeaxanthin) 25 Mg-5 Mg Capsule 1 Cap PO DAILY B-12 (Cyanocobalamin) 1,000 Mcg Subl 1,000 Mcg PO DAILY Vitamin D3 (Cholecalciferol) 1,000 Unit Tab 1,000 Units PO DAILY Levothyroxine (Levothyroxine Sodium) 50 Mcg Tab 50 Mcg PO DAILY Atorvastatin (Atorvastatin Calcium) 40 Mg Tab 40 Mg PO HS Metformin (Metformin HCl) 1,000 Mg Tab 1,000 Mg PO BIDPC Lantus Inj (Insulin Glargine) 1,000 Unit/10 Ml Vial 40 Units SQ HS . Current Medications Medications (Trade) Dose Ordered Sig/Geovanny Route Start Time Stop Time Status Last Admin (Duoneb Neb) 1 ampule Q6HR NEB INH 01/31/17 10:00 02/02/17 14:46 Miscellaneous Information 1 Q361D XX 01/31/17 10:00 (Chlorhexidine 2% Cloth) 3 pack Taper DAILY@04 TOP 02/01/17 04:00 01/28/18 03:59 02/02/17 03:27 (Chlorhexidine 2% Cloth) 3 pack UNSCH PRN TOP 01/31/17 10:00 (Rere-Colace) 1 tab BID PO 01/31/17 21:00 02/02/17 10:04 (Milk Of Magnesia Liq) 30 ml Q12H PRN PO 01/31/17 10:00 (Senokot) 17.2 mg Q12H PRN PO 01/31/17 10:00 (Dulcolax Supp) 10 mg DAILY PRN RECTAL 01/31/17 10:00 (Lactulose Liq) 30 ml DAILY PRN PO 01/31/17 10:00 (D50w (Vial) Inj) 50 ml UNSCH PRN IV 01/31/17 10:00 (Glucagon Inj) 1 mg UNSCH PRN OTHER 01/31/17 10:00 (NovoLIN R SUPPLEMENTAL SCALE) 1 Q4H SQ 01/31/17 10:00 02/02/17 14:00 (Ecotrin Ec) 162 mg DAILY PO 01/31/17 11:00 02/01/17 09:12 (Plavix) 75 mg DAILY PO 01/31/17 11:00 02/02/17 09:00 Levofloxacin/ Dextrose 100 ml @ 100 mls/hr Q24H IV 01/31/17 11:00 02/02/17 11:00 Pharmacy Profile Note 0 ml @ 0 mls/hr UNSCH OTHER 01/31/17 10:15 Vasopressin 40 units/Dextrose 100 ml @ 6 mls/hr [id number] IV 01/31/17 10:40 02/01/17 18:51 Vancomycin HCl 1600 mg/Sodium Chloride 516 ml @ 250 mls/hr Q24H IV 01/31/17 12:00 02/02/17 12:00 Fentanyl Citrate 250 ml @ 5 mls/hr TITRATE PRN IV 01/31/17 12:45 02/01/17 19:57 Norepinephrine Bitartrate 250 ml @ 7.5 mls/hr TITRATE PRN IV 01/31/17 16:00 02/02/17 02:40 (Brethine Inj) 1 mg UNSCH PRN SQ 01/31/17 16:00 Midazolam HCl 100 ml @ 2 mls/hr TITRATE PRN IV 01/31/17 16:00 02/01/17 19:56 Propofol 100 ml @ 3 mls/hr TITRATE PRN IV 01/31/17 17:45 01/31/17 17:40 Propofol 100 ml @ 3 mls/hr TITRATE PRN IV 01/31/17 18:00 01/31/17 19:59 Cefepime HCl 2000 mg/Sodium Chloride 100 ml @ 200 mls/hr Q12H IV 02/01/17 02:00 02/02/17 14:00 Micafungin Sodium 150 mg/Sodium Chloride 100 ml @ 100 mls/hr Q24H IV 02/01/17 03:00 02/02/17 02:39 Metronidazole 100 ml @ 100 mls/hr Q8H IV 02/01/17 01:00 02/02/17 09:00 (SoluCORTEF INJ) 50 mg Q6HR IV PUSH 02/01/17 12:00 02/02/17 12:00 (Protonix Inj) 40 mg Q12HR IV PUSH 02/02/17 21:00 Family History His mother, Orly Sky (Amauri) is alive and lives in [place], [place]. She is in her late 70s. He has no information about her current state of health. His father of brain cancer in his 60s. Patient has 1 daughter who is alive and well. . Substance Use Tobacco: Has smoked up to 2 packs per day. He continued to smoke but at a reduced rate. He started smoking when he was approximately 11 years old. Alcohol: Heavy alcohol use to include beer and liquor. Had decreased prior to recent hospital admission. Prescription med abuse: None reported Illicits:Report of use of marijuana, cocaine and occasionally hashish. As per report by patient from recent admission, patient stated that he has used that recently before admission to the hospital 11/30/16. . Psychosocial History Mr La is a 61-year-old male who was born in [place], [place]. Patient moved to [place] at the age of 15. He never attended high school after he moved to [place] nor obtained his GED. 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 Patient worked a lot with chemicals in [employer]. No service. Patient is , has 1 daughter. Patient residing with girlfriend Luly Bautista for the past 40 years. . Spiritual/Cultural Factors No sabianist affiliation. . Living Will: Copy in medical record Health Care Surrogate: Copy in medical record Durable Power of Cell Builder: Never completed Date completed: HCS completed 12/25/16 Living Will completed 01/07/17. . Health Care Surrogate(s): This information of healthcare surrogate and filed. Patient designated his daughter Mena La AND girlfriend Luly Bautista as HCS. . Documented care wishes: Patient electing that life/prolonging procedures be withheld or withdrawn in the setting of persistent vegetative state. Patient electing no tracheostomy. . Family/friends goals: Full code. Continue current medical management. Ongoing goals of care conversation. . Ethical and Legal Issues Patient unable to participate in medical decision making secondary to clinical condition, intubated, sedated. . Physical Exam Vital Signs Date Time Temp Pulse Resp B/P (MAP) Pulse Ox O2 Delivery O2 Flow Rate FiO2 02/02/17 13:25 40 02/02/17 12:40 87 100/50 02/02/17 12:00 97.9 87 18 100/50 (67) 99 115/41 (65) 02/02/17 12:00 40 02/02/17 12:00 87 02/02/17 10:51 96 40 02/02/17 10:00 97 02/02/17 08:25 40 02/02/17 08:00 90 02/02/17 08:00 98.5 90 18 118/70 (86) 100 133/44 (73) 02/02/17 08:00 40 02/02/17 07:34 99 40 02/02/17 06:00 85 02/02/17 04:10 100 40 02/02/17 04:00 40 02/02/17 04:00 85 02/02/17 04:00 97.1 85 18 129/42 (71) 100 02/02/17 02:40 88 137/40 02/02/17 02:00 87 02/02/17 01:48 99 40 02/02/17 00:00 40 02/02/17 00:00 97.3 90 18 135/42 (73) 99 02/02/17 00:00 90 02/01/17 22:40 98 40 02/01/17 22:00 90 02/01/17 20:10 99 40 02/01/17 20:00 40 02/01/17 20:00 97.9 89 18 139/47 (77) 99 02/01/17 20:00 89 02/01/17 19:57 89 108/54 02/01/17 18:51 88 131/38 02/01/17 18:00 90 02/01/17 16:00 84 02/01/17 16:00 40 02/01/17 16:00 40 02/01/17 16:00 97.6 84 18 102/49 (66) 98 123/44 (70) Exam CONSTITUTIONAL/GENERAL: This is an ill looking male, who appears older than stated age in moderate distress secondary to restlessness. Intubated on mechanical ventilation. TUBES/LINES/DRAINS: ETT, NGT, PIV, Right femoral central line; Right femoral A line, PIVs, SCDs SKIN: No jaundice, rashes, or lesions. Ecchymoses on upper extremities. Wound to RLE. Skin temperature appropriate. Not diaphoretic. HEAD: Atraumatic. Normocephalic. EYES: Pupils equal and round and reactive. Extraocular motions intact. No scleral icterus. No injection or drainage. ENT: Nose without bleeding or purulent drainage. Moist oral mucosa. NECK: Trachea midline. Supple, nontender. CARDIOVASCULAR: Regular rate and rhythm.Systolic murmur . No JVD. Peripheral pulses symmetric. RESPIRATORY/CHEST: Symmetric, unlabored respirations. Diminished breath sounds. No wheezes, rales, or rhonchi. GASTROINTESTINAL: Abdomen soft, non-tender, nondistended. No guarding. Hypoactive bowel sounds. GENITOURINARY: Without palpable bladder distension. Saxena catheter in place. MUSCULOSKELETAL: Extremities without clubbing, cyanosis. Edema to all 4 extremities. NEUROLOGICAL: Awake. Follows simple commands. Spontaneously moving all extremities. PSYCHIATRIC: Anxious. Intubated on mechanical ventilation. . Diagnostic Tests Laboratory Laboratory Tests Test 01/31/17 08:30 01/31/17 10:49 01/31/17 11:40 01/31/17 13:35 White Blood Count 12.5 TH/MM3 (4.0-11.0) 22.1 TH/MM3 (4.0-11.0) Red Blood Count 2.98 MIL/MM3 (4.50-5.90) 2.57 MIL/MM3 (4.50-5.90) Hemoglobin 8.3 GM/DL (13.0-17.0) 7.2 GM/DL (13.0-17.0) Hematocrit 27.9 % (39.0-51.0) 23.7 % (39.0-51.0) Mean Corpuscular Volume 93.3 FL (80.0-100.0) 92.5 FL (80.0-100.0) Mean Corpuscular Hemoglobin 27.8 PG (27.0-34.0) 28.0 PG (27.0-34.0) Mean Corpuscular Hemoglobin Concent 29.8 % (32.0-36.0) 30.3 % (32.0-36.0) Red Cell Distribution Width 19.1 % (11.6-17.2) 18.9 % (11.6-17.2) Platelet Count 288 TH/MM3 (150-450) 215 TH/MM3 (150-450) Mean Platelet Volume 8.7 FL (7.0-11.0) 8.5 FL (7.0-11.0) Neutrophils (%) (Auto) 81.8 % (16.0-70.0) 88.4 % (16.0-70.0) Lymphocytes (%) (Auto) 10.9 % (9.0-44.0) 3.1 % (9.0-44.0) Monocytes (%) (Auto) 7.2 % (0.0-8.0) 8.2 % (0.0-8.0) Eosinophils (%) (Auto) 0.0 % (0.0-4.0) 0.1 % (0.0-4.0) Basophils (%) (Auto) 0.1 % (0.0-2.0) 0.2 % (0.0-2.0) Neutrophils # (Auto) 10.3 TH/MM3 (1.8-7.7) 19.5 TH/MM3 (1.8-7.7) Lymphocytes # (Auto) 1.4 TH/MM3 (1.0-4.8) 0.7 TH/MM3 (1.0-4.8) Monocytes # (Auto) 0.9 TH/MM3 (0-0.9) 1.8 TH/MM3 (0-0.9) Eosinophils # (Auto) 0.0 TH/MM3 (0-0.4) 0.0 TH/MM3 (0-0.4) Basophils # (Auto) 0.0 TH/MM3 (0-0.2) 0.0 TH/MM3 (0-0.2) CBC Comment DIFF FINAL AUTO DIFF Differential Comment Prothrombin Time 14.3 SEC (9.8-11.6) Prothromb Time International Ratio 1.3 RATIO Activated Partial Thromboplast Time 27.1 SEC (24.3-30.1) Blood Urea Nitrogen 33 MG/DL (7-18) 35 MG/DL (7-18) Creatinine 1.71 MG/DL (0.60-1.30) 1.90 MG/DL (0.60-1.30) Random Glucose 137 MG/DL (74-106) 193 MG/DL (74-106) Total Protein 7.4 GM/DL (6.4-8.2) Albumin 2.7 GM/DL (3.4-5.0) Calcium Level 8.4 MG/DL (8.5-10.1) 7.8 MG/DL (8.5-10.1) Alkaline Phosphatase 109 U/L (45-117) Aspartate Amino Transf (AST/SGOT) 84 U/L (15-37) Alanine Aminotransferase (ALT/SGPT) 22 U/L (12-78) Total Bilirubin 0.9 MG/DL (0.2-1.0) Sodium Level 125 MEQ/L (136-145) 131 MEQ/L (136-145) Potassium Level 6.9 MEQ/L (3.5-5.1) 5.1 MEQ/L (3.5-5.1) Chloride Level 90 MEQ/L (98-107) 96 MEQ/L (98-107) Carbon Dioxide Level 16.2 MEQ/L (21.0-32.0) 17.5 MEQ/L (21.0-32.0) Anion Gap 19 MEQ/L (5-15) 18 MEQ/L (5-15) Estimat Glomerular Filtration Rate 41 ML/MIN (>89) 36 ML/MIN (>89) Lactic Acid Level 12.5 mmol/L (0.4-2.0) 11.1 mmol/L (0.4-2.0) Total Creatine Kinase 90 U/L (39-308) Troponin I 0.12 NG/ML (0.02-0.05) Blood Gas Puncture Site RT BRACHIAL Blood Gas Patient Temperature 98.6 Blood Gas HCO3 9 mmol/L (22-26) Blood Gas Base Excess -18.6 mmol/L (-2-2) Blood Gas Oxygen Saturation 53 % (90-100) Arterial Blood pH 7.13 (7.380-7.420) Arterial Blood Partial Pressure CO2 28 mmHg (38-42) Arterial Blood Partial Pressure O2 44 mmHG (61-120) Arterial Blood Oxygen Content 3.2 Vol % (12.0-20.0) Arterial Blood Carboxyhemoglobin 1.9 % (0-4) Arterial Blood Methemoglobin 0.6 % (0-2) Blood Gas Hemoglobin 4.1 G/DL (12.0-16.0) Oxygen Delivery Device VENTILATOR Blood Gas Ventilator Setting AC/16/550/PEEP5 Blood Gas Inspired Oxygen 100 % Urine Color YELLOW (YELLW/STRAW) Urine Turbidity CLOUDY (CLEAR) Urine pH 6.0 (5.0-8.5) Urine Specific Taylor 1.017 (1.002-1.035) Urine Protein 100 mg/dL (NEG-TRACE) Urine Glucose (UA) NEG mg/dL (NEG) Urine Ketones NEG mg/dL (NEG) Urine Occult Blood MOD (NEG) Urine Nitrite NEG (NEG) Urine Bilirubin NEG (NEG) Urine Urobilinogen LESS THAN 2.0 MG/DL (LESS Urine Leukocyte Esterase MOD (NEG) Urine RBC 9 /hpf (0-3) Urine WBC 14 /hpf (0-5) Urine WBC Clumps RARE (NONE) Urine Squamous Epithelial Cells <1 /hpf (0-5) Urine Amorphous Sediment RARE Urine Bacteria OCC /hpf (NONE) Urine Mucus FEW /lpf (OCC) Microscopic Urinalysis Comment CATH-CULTURE IND Nasal Screen MRSA (PCR) MRSA NOT DETECTED (NOT Test 01/31/17 14:00 01/31/17 17:50 01/31/17 20:15 02/01/17 01:20 Blood Gas Puncture Site LT BRACHIAL RT BRACHIAL Blood Gas Patient Temperature 98.6 98.6 Blood Gas HCO3 14 mmol/L (22-26) 15 mmol/L (22-26) Blood Gas Base Excess -11.1 mmol/L (-2-2) -10.9 mmol/L (-2-2) Blood Gas Oxygen Saturation 96 % (90-100) 97 % (90-100) Arterial Blood pH 7.28 (7.380-7.420) 7.27 (7.380-7.420) Arterial Blood Partial Pressure CO2 31 mmHg (38-42) 33 mmHg (38-42) Arterial Blood Partial Pressure O2 130 mmHg (61-120) 163 mmHg (61-120) Arterial Blood Oxygen Content 10.1 Vol % (12.0-20.0) 12.1 Vol % (12.0-20.0) Arterial Blood Carboxyhemoglobin 2.7 % (0-4) 1.3 % (0-4) Arterial Blood Methemoglobin 0.8 % (0-2) 1.3 % (0-2) Blood Gas Hemoglobin 7.3 G/DL (12.0-16.0) 8.7 G/DL (12.0-16.0) Oxygen Delivery Device VENTILATOR VENTILATOR Blood Gas Ventilator Setting A/C 500/16/5PEEP 500/16/5PEEP Blood Gas Inspired Oxygen 50 % 40 % White Blood Count 16.6 TH/MM3 (4.0-11.0) Red Blood Count 2.82 MIL/MM3 (4.50-5.90) Hemoglobin 8.2 GM/DL (13.0-17.0) Hematocrit 25.8 % (39.0-51.0) Mean Corpuscular Volume 91.5 FL (80.0-100.0) Mean Corpuscular Hemoglobin 29.1 PG (27.0-34.0) Mean Corpuscular Hemoglobin Concent 31.8 % (32.0-36.0) Red Cell Distribution Width 18.2 % (11.6-17.2) Platelet Count 201 TH/MM3 (150-450) Mean Platelet Volume 8.7 FL (7.0-11.0) Neutrophils (%) (Auto) 93.5 % (16.0-70.0) Lymphocytes (%) (Auto) 2.7 % (9.0-44.0) Monocytes (%) (Auto) 3.8 % (0.0-8.0) Eosinophils (%) (Auto) 0.0 % (0.0-4.0) Basophils (%) (Auto) 0.0 % (0.0-2.0) Neutrophils # (Auto) 15.6 TH/MM3 (1.8-7.7) Lymphocytes # (Auto) 0.4 TH/MM3 (1.0-4.8) Monocytes # (Auto) 0.6 TH/MM3 (0-0.9) Eosinophils # (Auto) 0.0 TH/MM3 (0-0.4) Basophils # (Auto) 0.0 TH/MM3 (0-0.2) CBC Comment DIFF FINAL Differential Comment Blood Urea Nitrogen 40 MG/DL (7-18) Creatinine 1.73 MG/DL (0.60-1.30) Random Glucose 304 MG/DL (74-106) Calcium Level 8.1 MG/DL (8.5-10.1) Sodium Level 128 MEQ/L (136-145) Potassium Level 5.7 MEQ/L (3.5-5.1) Chloride Level 92 MEQ/L (98-107) Carbon Dioxide Level 24.3 MEQ/L (21.0-32.0) Anion Gap 12 MEQ/L (5-15) Estimat Glomerular Filtration Rate 41 ML/MIN (>89) Lactic Acid Level 5.7 mmol/L (0.4-2.0) 2.9 mmol/L (0.4-2.0) Test 02/01/17 04:45 02/01/17 09:48 02/01/17 12:05 02/01/17 14:30 White Blood Count 14.1 TH/MM3 (4.0-11.0) Red Blood Count 2.80 MIL/MM3 (4.50-5.90) Hemoglobin 8.2 GM/DL (13.0-17.0) Hematocrit 25.4 % (39.0-51.0) Mean Corpuscular Volume 90.7 FL (80.0-100.0) Mean Corpuscular Hemoglobin 29.2 PG (27.0-34.0) Mean Corpuscular Hemoglobin Concent 32.2 % (32.0-36.0) Red Cell Distribution Width 17.9 % (11.6-17.2) Platelet Count 197 TH/MM3 (150-450) Mean Platelet Volume 8.2 FL (7.0-11.0) Neutrophils (%) (Auto) 82.8 % (16.0-70.0) Lymphocytes (%) (Auto) 9.5 % (9.0-44.0) Monocytes (%) (Auto) 7.5 % (0.0-8.0) Eosinophils (%) (Auto) 0.0 % (0.0-4.0) Basophils (%) (Auto) 0.2 % (0.0-2.0) Neutrophils # (Auto) 11.6 TH/MM3 (1.8-7.7) Lymphocytes # (Auto) 1.3 TH/MM3 (1.0-4.8) Monocytes # (Auto) 1.1 TH/MM3 (0-0.9) Eosinophils # (Auto) 0.0 TH/MM3 (0-0.4) Basophils # (Auto) 0.0 TH/MM3 (0-0.2) CBC Comment DIFF FINAL Differential Comment Blood Urea Nitrogen 44 MG/DL (7-18) Creatinine 1.86 MG/DL (0.60-1.30) Random Glucose 224 MG/DL (74-106) Total Protein 6.1 GM/DL (6.4-8.2) Albumin 2.2 GM/DL (3.4-5.0) Calcium Level 7.3 MG/DL (8.5-10.1) Alkaline Phosphatase 86 U/L (45-117) Aspartate Amino Transf (AST/SGOT) 520 U/L (15-37) Alanine Aminotransferase (ALT/SGPT) 452 U/L (12-78) Total Bilirubin 0.5 MG/DL (0.2-1.0) Sodium Level 128 MEQ/L (136-145) Potassium Level 5.7 MEQ/L (3.5-5.1) 5.1 MEQ/L (3.5-5.1) Chloride Level 91 MEQ/L (98-107) Carbon Dioxide Level 28.9 MEQ/L (21.0-32.0) Anion Gap 8 MEQ/L (5-15) Estimat Glomerular Filtration Rate 37 ML/MIN (>89) Protein Corrected Calcium 7.8 MG/DL (8.5-10.1) Blood Gas Puncture Site ART LINE Blood Gas Patient Temperature 98.6 Blood Gas HCO3 29 mmol/L (22-26) Blood Gas Base Excess 3.4 mmol/L (-2-2) Blood Gas Oxygen Saturation 93 % (90-100) Arterial Blood pH 7.32 (7.380-7.420) Arterial Blood Partial Pressure CO2 57 mmHg (38-42) Arterial Blood Partial Pressure O2 92 mmHg (61-120) Arterial Blood Oxygen Content 10.7 Vol % (12.0-20.0) Arterial Blood Carboxyhemoglobin 3.0 % (0-4) Arterial Blood Methemoglobin 0.9 % (0-2) Blood Gas Hemoglobin 8.0 G/DL (12.0-16.0) Oxygen Delivery Device VENTILATOR Blood Gas Ventilator Setting AC16/500/+5PEEP Blood Gas Inspired Oxygen 40 % Lactic Acid Level 1.7 mmol/L (0.4-2.0) Test 02/02/17 03:45 02/02/17 12:41 White Blood Count 11.2 TH/MM3 (4.0-11.0) Red Blood Count 2.65 MIL/MM3 (4.50-5.90) Hemoglobin 7.6 GM/DL (13.0-17.0) 7.6 GM/DL (13.0-17.0) Hematocrit 23.6 % (39.0-51.0) 23.4 % (39.0-51.0) Mean Corpuscular Volume 89.1 FL (80.0-100.0) Mean Corpuscular Hemoglobin 28.8 PG (27.0-34.0) Mean Corpuscular Hemoglobin Concent 32.3 % (32.0-36.0) Red Cell Distribution Width 18.0 % (11.6-17.2) Platelet Count 145 TH/MM3 (150-450) Mean Platelet Volume 8.7 FL (7.0-11.0) Neutrophils (%) (Auto) 89.6 % (16.0-70.0) Lymphocytes (%) (Auto) 5.7 % (9.0-44.0) Monocytes (%) (Auto) 4.6 % (0.0-8.0) Eosinophils (%) (Auto) 0.0 % (0.0-4.0) Basophils (%) (Auto) 0.1 % (0.0-2.0) Neutrophils # (Auto) 10.0 TH/MM3 (1.8-7.7) Lymphocytes # (Auto) 0.6 TH/MM3 (1.0-4.8) Monocytes # (Auto) 0.5 TH/MM3 (0-0.9) Eosinophils # (Auto) 0.0 TH/MM3 (0-0.4) Basophils # (Auto) 0.0 TH/MM3 (0-0.2) CBC Comment DIFF FINAL Differential Comment Blood Urea Nitrogen 42 MG/DL (7-18) Creatinine 1.17 MG/DL (0.60-1.30) Random Glucose 191 MG/DL (74-106) Total Protein 5.9 GM/DL (6.4-8.2) Albumin 2.1 GM/DL (3.4-5.0) Calcium Level 7.4 MG/DL (8.5-10.1) Phosphorus Level 3.5 MG/DL (2.5-4.9) Magnesium Level 1.8 MG/DL (1.5-2.5) Alkaline Phosphatase 82 U/L (45-117) Aspartate Amino Transf (AST/SGOT) 342 U/L (15-37) Alanine Aminotransferase (ALT/SGPT) 474 U/L (12-78) Total Bilirubin 0.5 MG/DL (0.2-1.0) Sodium Level 129 MEQ/L (136-145) Potassium Level 4.3 MEQ/L (3.5-5.1) Chloride Level 92 MEQ/L (98-107) Carbon Dioxide Level 29.1 MEQ/L (21.0-32.0) Anion Gap 8 MEQ/L (5-15) Estimat Glomerular Filtration Rate 64 ML/MIN (>89) Protein Corrected Calcium 8.1 MG/DL (8.5-10.1) Random Cortisol 84.8 MCG/DL Hepatitis A IgM Antibody NEGATIVE (NEGATIVE) Hepatitis B Surface Antigen NEGATIVE (NEGATIVE) Hepatitis B Core IgM Antibody NEGATIVE (NEGATIVE) Hepatitis C Antibody REACTIVE (NEGATIVE) Result Diagram: 02/02/17 1241 02/02/17 0345 Microbiology Microbiology Date/Time Source Procedure Growth Status 01/31/17 08:35 Blood Peripheral Aerobic Blood Culture - Preliminary NO GROWTH IN 2 DAYS Resulted 01/31/17 08:35 Blood Peripheral Anaerobic Blood Culture - Preliminary NO GROWTH IN 2 DAYS Resulted 01/31/17 08:30 Blood Peripheral Aerobic Blood Culture - Preliminary NO GROWTH IN 2 DAYS Resulted 01/31/17 08:30 Blood Peripheral Anaerobic Blood Culture - Preliminary NO GROWTH IN 2 DAYS Resulted 01/31/17 21:40 Sputum Endotracheal Gram Stain - Final Complete 01/31/17 21:40 Sputum Endotracheal Sputum Culture - Final HEAVY GROWTH NORMAL RESPIRATORY EDE Complete 01/31/17 16:30 Sputum Expectorated Sputum Gram Stain - Final Complete 01/31/17 16:30 Sputum Expectorated Sputum Sputum Culture - Final HEAVY GROWTH NORMAL RESPIRATORY EDE Complete 01/31/17 13:35 Urine Catheterized Urine Legionella Antigen - Final PRESUMPTIVE NEGATIVE FOR LEGIONELLA P... Complete 01/31/17 13:35 Urine Catheterized Urine Streptococcus pneumoniae Antigen (M - Final PRESUMPTIVE NEGATIVE FOR STREPTOCOCCU... Complete 01/31/17 11:40 Urine Clean Catch Urine Culture - Final NO GROWTH IN 48 HOURS. Complete Imaging Last Impressions Chest X-Ray 02/02/17 0000 Signed Impressions: Service Date/Time: Thursday, February 02, 2017 07:55 - CONCLUSION: Slow interval improvement. Supportive apparatus good position. Everett Pollock MD FACR Liver Ultrasound 02/01/17 0000 Signed Impressions: Service Date/Time: Wednesday, February 01, 2017 16:32 - CONCLUSION: 1. Cirrhotic appearing liver with trace ascites in the pelvis. 2. Gallbladder wall thickening and mild pericholecystic fluid without gallstones. These findings are routinely seen in the setting of cirrhosis. If there is significant clinical concern regarding cholecystitis, HIDA scan may be performed. 3. Bilateral pleural effusions. Escobar Joiner MD Chest CT 01/31/17 0000 Signed Impressions: Service Date/Time: Tuesday, January 31, 2017 12:52 - CONCLUSION: 1. Moderate bilateral pleural effusions with associated bibasilar airspace consolidation. 2. Mild patchy airspace disease in the lingula and right middle lobe. 3. Diffuse soft tissue prominence of the mid to distal esophagus with esophageal stent in place consistent with history of esophageal CA. Administered contrast extends to the proximal esophagus. 4. ETT in good position. NGT just be in the GE junction. 5. Prominent coronary artery calcifications. Escobar Joiner MD Abdomen/Pelvis CT 01/31/17 0000 Signed Impressions: Service Date/Time: Tuesday, January 31, 2017 12:52 - CONCLUSION: 1. No definite CT findings to explain patient's lactic acidosis. Specifically, no evidence for bowel infarction or perforation. 2. Moderate bilateral pleural effusions with associated bilateral lower lobe airspace consolidation. 3. Diffusely prominent distal esophagus with distal esophageal stent in place. NGT courses through the stent with tip just beyond the GE junction. 4. Cirrhotic appearing liver without evidence for significant ascites or focal drainable fluid collection. Escobar Joiner MD Procedures 02/02/17 Intubated 02/02/17 Right femoral central line placement 02/02/17 Right femoral Arterial line . Patient/Family Conference Present at Family Conference: Significant other Luly Bautista ([facility]) at bedside during visit. . Family Conference Time (mins): 36 Family Conference Location: Bedside Issues Discussed: * Palliative care role, purpose, approach * Additional medical, psychosocial, and spiritual history * Patients general health, functional status, and cognitive changes in the months leading up to the current hospitalization * Family understanding of the current medical problems -multiple chronic ongoing comorbidities, recent prolonged hospitalization x 2 months with multiple complications, malignancy, malnutrition, most recent PEA arrest and profound physical deconditioning. * Family understanding of prognosis -very poor prognosis * Patients goals of care as best understood from advance directives and/or conversations and/or values * Current medical treatment options and benefits/burdens of those options * Questions answered to the best of my ability * Palliative care contact information provided * Risks, benefits and limitations of CPR given patient's clinical condition . Assessment and Plan Disease Oriented Problem List: (1) Septic shock (2) PEA (Pulseless electrical activity) (3) Respiratory failure (4) Esophageal carcinoma (5) Acute kidney injury (6) Edema (7) Physical deconditioning (8) Anemia Symptom Scale: (1) Shortness of breath 0-10 Scale: Unable to quantify Comment: Intubated on mechanical ventilation. (2) Pain 0-10 Scale: Unable to quantify Comment: Multifactorial. Currently on fentanyl drip. (3) Debility 0-10 Scale: Unable to quantify Comment: Progressive. Pertinent Non-Medical Issues Psychosocial: Mr La is a 61-year-old male who was born in [place], [place]. Patient moved to [place] at the age of 15. He never attended high school after he moved to [place] nor obtained his GED. 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 Patient worked a lot with chemicals in [employer]. No service. Patient is , has 1 daughter. Patient residing with girlfriend Luly Bautista for the past 40 years. Spiritual: The sabianist affiliation. Legal: Advance directives completed. Copy in file. Ethical issues impacting care: Patient unable to participate in medical decision making given clinical condition, intubated/sedated. . Important Contacts Daughter -Mena La Significant although Luly Bautista or . . 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 Patient presented to the ED via EMS 02/02/17 from a half-way for shortness of breath and weakness. Patient sustained PEA arrest, underwent CPR and ACLS drugs with ROS, subsequently intubated and placed on mechanical ventilation. Patient was recently discharged from the [facility] on 01/30/17 after hospitalization x 2 months. During hospitalization, his clinical course was complicated by NSTEMI, patient underwent PCI with bare metal stents on 11/30/16. Clinical course further complicated by persistent fever, MSSA bacteremia, worsening sepsis, A. fib with RVR and persistent respiratory failure, intubation and mechanical ventilation x3 times, pericardial effusion requiring pericardiocentesis and pleural effusion with chest tube placement. Patient's overall prognosis is poor given multiple chronic ongoing comorbidities, recent prolonged hospitalization x 2 months with multiple complications, malignancy, malnutrition, most recent PEA arrest and profound physical deconditioning. Patient remains at very high risk for further complications, continued decline and . . Code Status: Full Code Plan * CODE STATUS: Full Code. Risks, benefits and limitations of CPR were discussed with significant other Luly. Patient to remain full code at this time. * CAYLA CARE SURROGATE: Patient unable to participating medical decision making given clinical condition, intubated/sedated. Designation of healthcare surrogate completed during prior hospitalization. Patient designated his daughter Mena La AND significant other Luly Bautista as healthcare surrogate decision maker. * GOALS OF CARE: Patient's significant other Luly Bautista electing to continue current aggressive management while ongoing goals of care conversation with pt' s daughter Mena La. Family made aware that patient's clinical condition remains critical; high risk for further complications, continued decline and . Family receptive to palliative care f/u. * SYMPTOMS: ==Shortness of breath, multifactorial. Currently intubated on mechanical ventilation. = Pain, secondary to ET tube, lines, bedrest, recent prolonged hospitalization. Currently on fentanyl drip. = Debility, secondary to chronic comorbidities, acute events, present prolonged hospitalization. Likely to continue to worsen. * Ongoing emotional support and active listening provided to patient's significant other Luly. * Palliative care contact information has been provided to patient's family. * Palliative care will continue to follow-up for further clarifications goals of care patient's clinical condition continues to evolve. . Time Spent Total Floor Time (mins): 85 (Total time to include review and summarization of available medical records to include prior multiple hospitalizations, physical exam, goals of care conversation with patient's significant other Luly.) >50% Counseling/Coord of Care: Yes Thank you for the opportunity to participate in the care of Mr. La. Attestation To help prompt me to consider important information that might be impacting today's encounter and assessment, information from prior notes written by myself or my colleagues may have been "brought forward" into today's note. My signature on this note, however, is an attestation that I personally performed the exam, history, and/or decision-making noted today, and, unless otherwise indicated, the interactions with patient, family, and staff as well as the review of records all occurred today. I also attest that the listed assessment and stated plan reflect my best clinical judgment today based on the combination of historical information, prior notes, and today's exam/ interactions. When time spent is documented, it refers only to time spent today by the signer, or if indicated, combined time spent today by collaborating physician/nurse practitioner. Ida Alston Feb 02, 2017 16:20
[2017-02-02] MEDS ORDERED: ADENOSINE IV SOLN 3 MG/ML 2 ML VIAL ONE (18:08)
[2017-02-02] MEDS ORDERED: METOPROLOL TARTRATE 5 MG/5 ML VIAL ONE (18:19)
[2017-02-02] MEDS: MIDAZOLAM 100 MG/100 ML INJ 100 ML IV PRN (18:26)
[2017-02-02] MEDS: PANTOPRAZOLE SODIUM 40 MG VIAL IV PUSH SCH (19:51)
[2017-02-02] MEDS ORDERED: ADENOSINE IV SOLN 3 MG/ML 2 ML VIAL IV PUSH SCH (20:00)
[2017-02-02] MEDS ORDERED: ADENOSINE IV SOLN 3 MG/ML 2 ML VIAL IV PUSH ONE (20:00)
[2017-02-02] MEDS ORDERED: METOPROLOL TARTRATE 5 MG/5 ML VIAL IV PUSH ONE (20:00)
[2017-02-03] VITALS (18 sets, daily range): BP systolic 91–127; BP diastolic 42–56; PULSE 71–88; RESP 12–18; TEMP 96.6–97.7; O2SAT 99–100
[2017-02-03] MEDS: metroNIDAZOLE 500 MG INJ 100 ML IV SCH ×2 (01:00→09:31)
[2017-02-03] MEDS: INSULIN NovoLIN REGULAR SUPPLEMENTAL SCALE SQ SCH ×6 (02:00→21:03)
[2017-02-03] MEDS: CEFEPIME INJ 2,000 MG in SODIUM CHLORIDE 0.9% INJ 100 ML IV SCH ×2 (02:00→14:00)
[2017-02-03] MEDS: MICAFUNGIN INJ 150 MG in SODIUM CHLORIDE 0.9% INJ 100 ML IV SCH (03:00)
[2017-02-03 03:52] LABS: AUTOMATED NEUTROPHIL # 5.5 TH/MM3 (1.8-7.7); BASOPHIL % 0.1 % (0.0-2.0); HEMATOCRIT 27.7 % (39.0-51.0); LYMPH % 13.4 % (9.0-44.0); LYMPHOCYTE # 0.9 TH/MM3 (1.0-4.8); MEAN CELL VOLUME 88.4 FL (80.0-100.0); MEAN CORPUSCULAR HEMOGLOBIN 29.3 PG (27.0-34.0); MEAN CORPUSCULAR HGB CONC 33.2 % (32.0-36.0); MONO % 8.1 % (0.0-8.0); NEUT % 78.4 % (16.0-70.0); PLATELET COUNT 106 TH/MM3 (150-450); RED BLOOD COUNT 3.13 MIL/MM3 (4.50-5.90); RED CELL DISTRIBUTION WIDTH 17.7 % (11.6-17.2); WHITE BLOOD COUNT 7.1 TH/MM3 (4.0-11.0)
[2017-02-03] MEDS: RESP: ALBUTEROL 2.5 MG/IPRATROPIUM 0.5 MG NEB (SCH) INH ×4 (03:53→21:25)
[2017-02-03 03:56] LABS: HEMO FLAGS AUTO DIFF
[2017-02-03] MEDS: CHLORHEXIDINE GLUCONATE 2 % 1 PACK (2 CLOTHS) TOP SCH (03:59)
[2017-02-03] MEDS: VASOPRESSIN INJ 40 UNITS in DEXTROSE 5% IN WATER 100ML INJ 98 ML IV SCH ×4 (03:59→20:49)
[2017-02-03 04:08] LABS: ALT (GPT) 405 U/L (12-78); ANION GAP 8 MEQ/L (5-15); AST (GOT) 186 U/L (15-37); BICARBONATE 29.2 MEQ/L (21.0-32.0); BLOOD UREA NITROGEN 51 MG/DL (7-18); CHLORIDE 96 MEQ/L (98-107); GLOMERULAR FILTRATION RATE 64 ML/MIN (>89); MAGNESIUM 1.9 MG/DL (1.5-2.5); POTASSIUM 4.3 MEQ/L (3.5-5.1); SODIUM (NA) 133 MEQ/L (136-145)
[2017-02-03 04:10] LABS: ALKALINE PHOSPHATASE 82 U/L (45-117); TOTAL BILIRUBIN ADULT 1.3 MG/DL (0.2-1.0)
[2017-02-03 04:44] LABS: BANDS 1 % (0-6); BLASTS 1 % (0-0); CORRECTED NUCLEATED RBC 4 /100 WBC (0-0); NEUTROPHIL # MANUAL DIFF 5.8 TH/MM3 (1.8-7.7); POLYS (SEG NEUTROPHILS) 81 % (16-70); WBC DIFF SAMPLE 100
[2017-02-03 04:45] LABS: PLATELET ESTIMATE SMEAR LOW (NORMAL); PLATELET MORPHOLOGY NORMAL (NORMAL); SCAN/DIFF FINAL DIFF MANUAL
[2017-02-03 04:46] LABS: OVALOCYTES 1+ (NORMAL)
[2017-02-03] MEDS: HYDROCORTISONE SOD SUCCINATE 100 MG VIAL IV PUSH SCH ×5 (04:59→22:56)
--- NOTE | 2017-02-03 05:54 | PD.PROCEDR ---
Procedure Note Procedure Electric cardioversion Emergent electrocardioversion due to hemodynamic instability due to SVT. The appropriate time-out procedure was performed as per [facility] protocol including proper identification of the patient, physician, procedure, documentation, and there were no safety issues identified by myself nor the staff. The patient didn't participate actively in this, patient is sedated and intubated. He received a total of 2 mg of Versed then and 100 micrograms of fentanyl bolus with continues fentanyl infusion with utilizing titrated conscious sedation with good effect. He was placed in the supine position and hands free patches had previously been placed in the AP position and he received one synchronized cardioversion attempt with successful resumption of normal sinus rhythm and improvement of blood pressure. This was confirmed on 12 lead EKG. Freddie Bailey MD Feb 03, 2017 5:54 am
[2017-02-03] MEDS ORDERED: CALCIUM GLUCONATE INJ 2 GM in SODIUM CHLORIDE 0.9% INJ 100 ML IV ONE (06:00)
--- NOTE | 2017-02-03 07:59 | HHI.CCPN ---
Subjective Remarks/Hospital Course The patient is a 61-year-old male with multiple comorbidities which include esophageal adenocarcinoma status post stent placement in December, coronary artery disease with previous stent placement in the proximal circumflex, squamous cell carcinoma of the skin and anemia and a history of atrial flutter. The patient presented to the [facility] Emergency Department from a local senior care for hypoxemia and severe respiratory distress. On arrival to the emergency room, the patient was hypotensive with a systolic blood pressure in the 80s, bradycardic with heart rate in the 50s and had a temperature of 97.6. Due to severe respiratory distress, he was subsequently intubated and placed on full mechanical ventilation. In addition, Versed drip was initiated. In the emergency room, the patient was found to have wide complex tachycardia and his laboratory data showed severe hyperkalemia with a potassium level of 6.9 and lactic acidosis with a lactic acid level of 12.5. The patient went into PEA arrest in the emergency room and he received epinephrine, bicarb with successful return of spontaneous circulation. He received approximately 1.5 liters of crystalloids and was started on Levophed drip which is currently 20 mics. For hyperkalemia, the patient was given 2 ampules of bicarb, calcium gluconate and 10 units of IV insulin D50 and placed on bicarb drip. A chest x-ray post- intubation showed ET tube above the elizabeth, bilateral pleural effusions with consolidation and atelectasis at the bases right greater than left. An ABG post intubation appears venous blood gas which showed a pH of 7.13, CO2 28, pAO2 44, bicarb of 9, saturation 53% with a base excess of -18.6. This was on assist control ventilation rate of 16, tidal volume 550, PEEP of 5 and 100% FIO2. The patient is scheduled for CT scan of the abdomen and pelvis along with CT scan of the chest. He was discharged from the hospital yesterday after he was admitted on December 24. On his previous admission, the patient had an Pseudomonas pneumoniae. In addition, he had MSSA bacteremia back in November. 02/01 Patient remains intubated with versed and Fentnayl drips. Levophed down 12 mics from 20 and on Vasopressin 0.04 mics. Lactic acid is trending down 2.9 this morning from 12.5 on arrival. On Bicarb drip. Afebrile. 02/02 No events overnight. Sedated with Versed and Fentanyl drips. Levophed down 6 mics and on Vasopressin 0.04. Renal function is improving with Cr: 1.17 from 1.86. Off Bicarb drip. 02/03 Patient was in SVT last night HR 204 given Adenosine 6mg+12mg then cardioverted with 50J now in NSR HR 70's. Sedated with Versed and Fentanyl drips. Given 2units PRBC overnight Hgb 9.2 this morning. Off all pressors. For EGD today. Objective Vital Signs Date Time Temp Pulse Resp B/P (MAP) Pulse Ox O2 Delivery O2 Flow Rate FiO2 02/03/17 06:00 76 02/03/17 04:08 100 40 02/03/17 04:00 97.6 18 105/44 (64) 01/31/17 12:34 Ventilator Intake and Output 02/03/17 02/03/17 02/04/17 08:00 16:00 00:00 Intake Total 1050 ml Output Total 600 ml Balance 450 ml Result Diagram: 02/03/17 0300 02/03/17 0300 Other Results Laboratory Tests Test 02/02/17 12:41 02/03/17 03:00 Hemoglobin 7.6 GM/DL 9.2 GM/DL Hematocrit 23.4 % 27.7 % White Blood Count 7.1 TH/MM3 Red Blood Count 3.13 MIL/MM3 Mean Corpuscular Volume 88.4 FL Mean Corpuscular Hemoglobin 29.3 PG Mean Corpuscular Hemoglobin Concent 33.2 % Red Cell Distribution Width 17.7 % Platelet Count 106 TH/MM3 Mean Platelet Volume 8.6 FL Neutrophils (%) (Auto) 78.4 % Lymphocytes (%) (Auto) 13.4 % Monocytes (%) (Auto) 8.1 % Eosinophils (%) (Auto) 0.0 % Basophils (%) (Auto) 0.1 % Neutrophils # (Auto) 5.5 TH/MM3 Lymphocytes # (Auto) 0.9 TH/MM3 Monocytes # (Auto) 0.6 TH/MM3 Eosinophils # (Auto) 0.0 TH/MM3 Basophils # (Auto) 0.0 TH/MM3 CBC Comment AUTO DIFF Differential Total Cells Counted 100 Neutrophils % (Manual) 81 % Band Neutrophils % 1 % Lymphocytes % 9 % Monocytes % 8 % Neutrophils # (Manual) 5.8 TH/MM3 Nucleated Red Blood Cells 4 /100 WBC Differential Comment FINAL DIFF MANUAL Blastocytes 1 % Platelet Estimate LOW Platelet Morphology Comment NORMAL Ovalocytes 1+ Blood Urea Nitrogen 51 MG/DL Creatinine 1.17 MG/DL Random Glucose 168 MG/DL Total Protein 5.7 GM/DL Albumin 2.0 GM/DL Calcium Level 7.8 MG/DL Phosphorus Level 3.6 MG/DL Magnesium Level 1.9 MG/DL Alkaline Phosphatase 82 U/L Aspartate Amino Transf (AST/SGOT) 186 U/L Alanine Aminotransferase (ALT/SGPT) 405 U/L Total Bilirubin 1.3 MG/DL Sodium Level 133 MEQ/L Potassium Level 4.3 MEQ/L Chloride Level 96 MEQ/L Carbon Dioxide Level 29.2 MEQ/L Anion Gap 8 MEQ/L Estimat Glomerular Filtration Rate 64 ML/MIN Imaging Last Impressions Chest X-Ray 02/02/17 0000 Signed Impressions: Service Date/Time: Thursday, February 02, 2017 07:55 - CONCLUSION: Slow interval improvement. Supportive apparatus good position. Everett Pollock MD FACR Liver Ultrasound 02/01/17 0000 Signed Impressions: Service Date/Time: Wednesday, February 01, 2017 16:32 - CONCLUSION: 1. Cirrhotic appearing liver with trace ascites in the pelvis. 2. Gallbladder wall thickening and mild pericholecystic fluid without gallstones. These findings are routinely seen in the setting of cirrhosis. If there is significant clinical concern regarding cholecystitis, HIDA scan may be performed. 3. Bilateral pleural effusions. Escobar Joiner MD Chest CT 01/31/17 0000 Signed Impressions: Service Date/Time: Tuesday, January 31, 2017 12:52 - CONCLUSION: 1. Moderate bilateral pleural effusions with associated bibasilar airspace consolidation. 2. Mild patchy airspace disease in the lingula and right middle lobe. 3. Diffuse soft tissue prominence of the mid to distal esophagus with esophageal stent in place consistent with history of esophageal CA. Administered contrast extends to the proximal esophagus. 4. ETT in good position. NGT just be in the GE junction. 5. Prominent coronary artery calcifications. Escobar Joiner MD Abdomen/Pelvis CT 01/31/17 0000 Signed Impressions: Service Date/Time: Tuesday, January 31, 2017 12:52 - CONCLUSION: 1. No definite CT findings to explain patient's lactic acidosis. Specifically, no evidence for bowel infarction or perforation. 2. Moderate bilateral pleural effusions with associated bilateral lower lobe airspace consolidation. 3. Diffusely prominent distal esophagus with distal esophageal stent in place. NGT courses through the stent with tip just beyond the GE junction. 4. Cirrhotic appearing liver without evidence for significant ascites or focal drainable fluid collection. Escobar Joiner MD Objective Remarks GENERAL: Patient is 61 yo critically ill intubated , sedated and on pressors. SKIN: Warm and dry. HEAD: Normocephalic. EYES: No scleral icterus. No injection or drainage. NECK: Supple, trachea midline. No JVD or lymphadenopathy. CARDIOVASCULAR: Regular rate and rhythm without murmurs, gallops, or rubs. RESPIRATORY: Breath sounds equal bilaterally. Coarse BS GASTROINTESTINAL: Abdomen soft, non-tender, nondistended. MUSCULOSKELETAL: No cyanosis, +3 edema. Neuro: Intubated, sedated A/P Assessment and Plan 1. VDRF 2. s/p Septic shock. 3. Hyperkalemia. 4. Acute kidney injury...improved 5. Lactic acidemia( resolved) and hyponatremia. 6. SVT 7. Elevated LFT's 8. Leukocytosis. 9. Anemia. 10. Possible pneumonia. 11. History of coronary artery disease with stent placement. 12. History of esophageal CA. 13. Squamous cell carcinoma of the skin. Plan Neuro: On Fentanyl and Versed drips for sedation. Daily sedation vacation. Pulm: Continue with vent support and maintain saturations>92%. Bronchodilators, hydrocortisone 50mg Q6 SBT daily as michael. CT chest: Moderate bilateral pleural effusions with associated bibasilar airspace consolidation. Mild patchy airspace disease in the lingula and right middle lobe. 3. Diffuse soft tissue prominence of the mid to distal esophagus with esophageal stent in place consistent with history of esophageal CA. CV: Off all pressors monitor HR and BP keep MAP>65mmHg Patient went into SVT last night given Adenosine and was cardioverted with 50J now in NSR HR 70's. Lactic acid cleared recheck echo, check CK/trop, cards eval. Continue with ASA, Plavix- Discussed with Dr. Nikhil Echo from 01/07 showed EF 60% to 65%. : Monitor renal function, intakes and outputs and avoid nephrotoxins. Renal is following- Cr is improving 1.17 today s/p Bumex 2mg IV x1 yesterday. Renal is following- Dr. Barrera GI: OGT to LIMWS (200 ml gastric drainage in 24 hrs) Monitor LFT's, US liver: Cirrhotic appearing liver with trace ascites in the pelvis. Gallbladder wall thickening and mild pericholecystic fluid without gallstone hepatitis profile : Hep C reactive ab on Protonix 40 mg IV Q12 for GI prophylaxis. CT abdomen/pelvis: no evidence for bowel infarction or perforation. bilateral lower lobe airspace consolidation. Diffusely prominent distal esophagus with distal esophageal stent in place. NGT courses through the stent with tip just beyond the GE junction. Cirrhotic appearing liver without evidence for significant ascites or focal drainable fluid collection GI is following- for EGD today ID: Continue with abx (Levaquin, Cefepime, Micafungin, Vancomycin) ID is following Monitor for signs of infection which include fever and WBCs. Follow up on blood, sputum, urine cultures: NGTD Strep pneumoniae and Legionella urinary antigen negative. Heme: Monitor CBC, s/p transfusion 2units PRBC overnight Hgb 9.2 this morning Will consult Oncology ( patient known to him) patient is on chemo and XRT for his esophageal ca. Endo: SSI with Accu-Chek q. 4 hours for glycemic control. GI prophylaxis with Protonix 40 mg IV Q12 DVT prophylaxis with SCDs. Lines: Right Femoral Central line placed by ED 02/01, Right femoral Art Line placed 01/31 Palliative care is following of care CCT 30 mins Dixie Navarrete MD Feb 03, 2017 07:59
[2017-02-03] MEDS: DOCUSATE SODIUM 50 MG/SENNA 8.6 MG TAB PO SCH ×3 (09:00→20:49)
[2017-02-03] MEDS: ASPIRIN EC 81 MG TABEC PO SCH (09:00)
[2017-02-03] MEDS: CLOPIDOGREL 75 MG TAB PO SCH ×2 (09:00→09:32)
[2017-02-03] MEDS: COLLAGENASE OINT 30 GM TUBE TOPICAL SCH (09:32)
[2017-02-03] MEDS: PANTOPRAZOLE SODIUM 40 MG VIAL IV PUSH SCH ×2 (09:32→20:49)
--- NOTE | 2017-02-03 11:03 | HHI.HCPN ---
Reason for visit a. To assist with evaluation and management of symptoms including: Shortness of breath, Debility. b. To assist medical decision maker(s) with: better understanding of current medical conditions; weighing benefits/burdens of medical treatment options; making medical treatment decisions. . 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 Patient presented to the ED via EMS 02/02/17 from a intermediate for shortness of breath and weakness. Patient sustained PEA arrest, underwent CPR and ACLS drugs with ROS, subsequently intubated and placed on mechanical ventilation. Patient was recently discharged from the [place] to [facility] on 01/30/17 after hospitalization x 2 months. During hospitalization, his clinical course was complicated by NSTEMI, patient underwent PCI with bare metal stents on 11/30/16. Clinical course further complicated by persistent fever, MSSA bacteremia, worsening sepsis, A. fib with RVR and persistent respiratory failure, intubation and mechanical ventilation x3 times, pericardial effusion requiring pericardiocentesis and pleural effusion with chest tube placement. Palliative care consulted for further clarifications of goals of care given overall poor prognosis. Patient seen in ICU, remains endotracheally intubated on mechanical ventilation. 40% FiO2, oxygen saturation in the high 90s. Afebrile, stable hemodynamically. Overnight, patient sustained SVT with heart rate 204. Adenosine was given, subsequently requiring cardioversion. Patient currently with heart rate in the 70s. Sedated on Versed and fentanyl. Patient received yesterday 2 units PRBC for hemoglobin 7.6. Laboratory work This morning revealing WBC 7.1, Hgb 9.2, platelet count 106. BUN/creatinine 51/1.17. Albumin 2.0. Patient is scheduled for EGD today. Case discussed with bedside RN Elba. . Family/friend interactions Telephone conversation with patient's daughter Mena and with patient's significant other Luly. Medical update provided. Reviewed that patient's clinical condition remains critical. Shared concerns of patient overall poor prognosis given multiple chronic ongoing comorbidities, recent prolonged hospitalization x 2 months with multiple complications, malignancy, malnutrition , most recent PEA arrest and profound physical deconditioning. Discussed that patient remains at a very high risk for further complications, clinical decline and . Discussed risks, benefits and limitations of CPR given patient's clinical condition. Daughter and significant other Luly electing for patient to remain full code at this time while ongoing goals of care conversations are taking place. Family was encouraged to continue goals of care conversation. Family receptive to palliative care follow-ups. . Advance Directives Living Will: Copy in medical record Health Care Surrogate: Copy in medical record Durable Power of [place]: Never completed Advance Directive Specifics Date completed: HCS completed 12/25/16 Living Will completed 01/07/17. . Health Care Surrogate(s): This information of healthcare surrogate and filed. Patient designated his daughter Mena La AND girlfriend Luly Bautista as HCS. . Documented care wishes: Patient electing that life/prolonging procedures be withheld or withdrawn in the setting of persistent vegetative state. Patient electing no tracheostomy. . Significant change in goals: Full code. Continue ongoing aggressive management. . Objective Vital Signs Date Time Temp Pulse Resp B/P (MAP) Pulse Ox O2 Delivery O2 Flow Rate FiO2 02/03/17 08:14 100 40 02/03/17 06:00 76 02/03/17 04:08 100 40 02/03/17 04:00 40 02/03/17 04:00 97.6 75 18 105/44 (64) 100 02/03/17 04:00 75 02/03/17 02:00 78 02/03/17 01:07 99 40 02/03/17 00:00 80 02/03/17 00:00 40 02/03/17 00:00 97.7 80 18 104/44 (64) 100 02/02/17 22:20 97.9 83 18 105/46 100 02/02/17 22:09 100 40 02/02/17 22:00 84 02/02/17 20:42 97.9 87 18 103/44 100 02/02/17 20:23 97.8 88 18 103/46 100 02/02/17 20:00 90 02/02/17 20:00 40 02/02/17 20:00 97.9 90 18 104/45 (64) 100 Automatic Cuff 02/02/17 19:30 100 40 02/02/17 18:00 109 02/02/17 16:00 40 02/02/17 16:00 107 02/02/17 16:00 97.9 107 18 118/58 (78) 96 128/46 (73) 02/02/17 15:34 96 40 02/02/17 14:00 117 02/02/17 14:00 117 02/02/17 13:25 40 02/02/17 12:40 87 100/50 02/02/17 12:00 97.9 87 18 100/50 (67) 99 115/41 (65) 02/02/17 12:00 40 02/02/17 12:00 87 Intake & Output 02/03/17 02/03/17 07:00 19:00 Intake Total 1550 ml Output Total 600 ml Balance 950 ml Intake Oral 0 ml IV Total 550 ml Tube Feeding 0 ml Packed Cells 1000 ml Output Urine Total 400 ml Gastric Drainage Total 200 ml # Bowel Movements 0 Physical Exam CONSTITUTIONAL/GENERAL: This is an ill looking male, who appears older than stated age in no acute distress. Intubated on mechanical ventilation, sedated. TUBES/LINES/DRAINS: ETT, NGT, PIV, Right femoral central line; Right femoral A line, PIVs, SCDs SKIN: No jaundice, rashes, or lesions. Ecchymoses on upper extremities. Skin tear to left lower extremity. Skin temperature appropriate. Not diaphoretic. HEAD: Atraumatic. Normocephalic. EYES: Pupils equal and round and reactive. No scleral icterus. No injection or drainage. ENT: Nose without bleeding or purulent drainage. Moist oral mucosa. NECK: Trachea midline. Supple, nontender. CARDIOVASCULAR: Regular rate and rhythm.Systolic murmur . No JVD. Peripheral pulses symmetric. RESPIRATORY/CHEST: Symmetric, unlabored respirations. Diminished breath sounds. No wheezes, rales, or rhonchi. GASTROINTESTINAL: Abdomen soft, large, round. Hypoactive bowel sounds. GENITOURINARY: Without palpable bladder distension. Saxena catheter in place. MUSCULOSKELETAL: Extremities without clubbing, cyanosis. Edema to all 4 extremities. NEUROLOGICAL: Sedated. Not following commands. PSYCHIATRIC: Unable to assess secondary to clinical condition, intubated, sedated. Appears calm. . Diagnostic Tests Laboratory Laboratory Tests Test 01/31/17 11:40 01/31/17 13:35 01/31/17 14:00 01/31/17 17:50 Urine Color YELLOW (YELLW/STRAW) Urine Turbidity CLOUDY (CLEAR) Urine pH 6.0 (5.0-8.5) Urine Specific [place] 1.017 (1.002-1.035) Urine Protein 100 mg/dL (NEG-TRACE) Urine Glucose (UA) NEG mg/dL (NEG) Urine Ketones NEG mg/dL (NEG) Urine Occult Blood MOD (NEG) Urine Nitrite NEG (NEG) Urine Bilirubin NEG (NEG) Urine Urobilinogen LESS THAN 2.0 MG/DL (LESS Urine Leukocyte Esterase MOD (NEG) Urine RBC 9 /hpf (0-3) Urine WBC 14 /hpf (0-5) Urine WBC Clumps RARE (NONE) Urine Squamous Epithelial Cells <1 /hpf (0-5) Urine Amorphous Sediment RARE Urine Bacteria OCC /hpf (NONE) Urine Mucus FEW /lpf (OCC) Microscopic Urinalysis Comment CATH-CULTURE IND White Blood Count 22.1 TH/MM3 (4.0-11.0) Red Blood Count 2.57 MIL/MM3 (4.50-5.90) Hemoglobin 7.2 GM/DL (13.0-17.0) Hematocrit 23.7 % (39.0-51.0) Mean Corpuscular Volume 92.5 FL (80.0-100.0) Mean Corpuscular Hemoglobin 28.0 PG (27.0-34.0) Mean Corpuscular Hemoglobin Concent 30.3 % (32.0-36.0) Red Cell Distribution Width 18.9 % (11.6-17.2) Platelet Count 215 TH/MM3 (150-450) Mean Platelet Volume 8.5 FL (7.0-11.0) Neutrophils (%) (Auto) 88.4 % (16.0-70.0) Lymphocytes (%) (Auto) 3.1 % (9.0-44.0) Monocytes (%) (Auto) 8.2 % (0.0-8.0) Eosinophils (%) (Auto) 0.1 % (0.0-4.0) Basophils (%) (Auto) 0.2 % (0.0-2.0) Neutrophils # (Auto) 19.5 TH/MM3 (1.8-7.7) Lymphocytes # (Auto) 0.7 TH/MM3 (1.0-4.8) Monocytes # (Auto) 1.8 TH/MM3 (0-0.9) Eosinophils # (Auto) 0.0 TH/MM3 (0-0.4) Basophils # (Auto) 0.0 TH/MM3 (0-0.2) CBC Comment AUTO DIFF Differential Comment Nasal Screen MRSA (PCR) MRSA NOT DETECTED (NOT Blood Urea Nitrogen 35 MG/DL (7-18) Creatinine 1.90 MG/DL (0.60-1.30) Random Glucose 193 MG/DL (74-106) Calcium Level 7.8 MG/DL (8.5-10.1) Sodium Level 131 MEQ/L (136-145) Potassium Level 5.1 MEQ/L (3.5-5.1) Chloride Level 96 MEQ/L (98-107) Carbon Dioxide Level 17.5 MEQ/L (21.0-32.0) Anion Gap 18 MEQ/L (5-15) Estimat Glomerular Filtration Rate 36 ML/MIN (>89) Lactic Acid Level 11.1 mmol/L (0.4-2.0) Blood Gas Puncture Site LT BRACHIAL RT BRACHIAL Blood Gas Patient Temperature 98.6 98.6 Blood Gas HCO3 14 mmol/L (22-26) 15 mmol/L (22-26) Blood Gas Base Excess -11.1 mmol/L (-2-2) -10.9 mmol/L (-2-2) Blood Gas Oxygen Saturation 96 % (90-100) 97 % (90-100) Arterial Blood pH 7.28 (7.380-7.420) 7.27 (7.380-7.420) Arterial Blood Partial Pressure CO2 31 mmHg (38-42) 33 mmHg (38-42) Arterial Blood Partial Pressure O2 130 mmHg (61-120) 163 mmHg (61-120) Arterial Blood Oxygen Content 10.1 Vol % (12.0-20.0) 12.1 Vol % (12.0-20.0) Arterial Blood Carboxyhemoglobin 2.7 % (0-4) 1.3 % (0-4) Arterial Blood Methemoglobin 0.8 % (0-2) 1.3 % (0-2) Blood Gas Hemoglobin 7.3 G/DL (12.0-16.0) 8.7 G/DL (12.0-16.0) Oxygen Delivery Device VENTILATOR VENTILATOR Blood Gas Ventilator Setting A/C 500/16/5PEEP 500/16/5PEEP Blood Gas Inspired Oxygen 50 % 40 % Test 01/31/17 20:15 02/01/17 01:20 02/01/17 04:45 02/01/17 09:48 White Blood Count 16.6 TH/MM3 (4.0-11.0) 14.1 TH/MM3 (4.0-11.0) Red Blood Count 2.82 MIL/MM3 (4.50-5.90) 2.80 MIL/MM3 (4.50-5.90) Hemoglobin 8.2 GM/DL (13.0-17.0) 8.2 GM/DL (13.0-17.0) Hematocrit 25.8 % (39.0-51.0) 25.4 % (39.0-51.0) Mean Corpuscular Volume 91.5 FL (80.0-100.0) 90.7 FL (80.0-100.0) Mean Corpuscular Hemoglobin 29.1 PG (27.0-34.0) 29.2 PG (27.0-34.0) Mean Corpuscular Hemoglobin Concent 31.8 % (32.0-36.0) 32.2 % (32.0-36.0) Red Cell Distribution Width 18.2 % (11.6-17.2) 17.9 % (11.6-17.2) Platelet Count 201 TH/MM3 (150-450) 197 TH/MM3 (150-450) Mean Platelet Volume 8.7 FL (7.0-11.0) 8.2 FL (7.0-11.0) Neutrophils (%) (Auto) 93.5 % (16.0-70.0) 82.8 % (16.0-70.0) Lymphocytes (%) (Auto) 2.7 % (9.0-44.0) 9.5 % (9.0-44.0) Monocytes (%) (Auto) 3.8 % (0.0-8.0) 7.5 % (0.0-8.0) Eosinophils (%) (Auto) 0.0 % (0.0-4.0) 0.0 % (0.0-4.0) Basophils (%) (Auto) 0.0 % (0.0-2.0) 0.2 % (0.0-2.0) Neutrophils # (Auto) 15.6 TH/MM3 (1.8-7.7) 11.6 TH/MM3 (1.8-7.7) Lymphocytes # (Auto) 0.4 TH/MM3 (1.0-4.8) 1.3 TH/MM3 (1.0-4.8) Monocytes # (Auto) 0.6 TH/MM3 (0-0.9) 1.1 TH/MM3 (0-0.9) Eosinophils # (Auto) 0.0 TH/MM3 (0-0.4) 0.0 TH/MM3 (0-0.4) Basophils # (Auto) 0.0 TH/MM3 (0-0.2) 0.0 TH/MM3 (0-0.2) CBC Comment DIFF FINAL DIFF FINAL Differential Comment Blood Urea Nitrogen 40 MG/DL (7-18) 44 MG/DL (7-18) Creatinine 1.73 MG/DL (0.60-1.30) 1.86 MG/DL (0.60-1.30) Random Glucose 304 MG/DL (74-106) 224 MG/DL (74-106) Calcium Level 8.1 MG/DL (8.5-10.1) 7.3 MG/DL (8.5-10.1) Sodium Level 128 MEQ/L (136-145) 128 MEQ/L (136-145) Potassium Level 5.7 MEQ/L (3.5-5.1) 5.7 MEQ/L (3.5-5.1) Chloride Level 92 MEQ/L (98-107) 91 MEQ/L (98-107) Carbon Dioxide Level 24.3 MEQ/L (21.0-32.0) 28.9 MEQ/L (21.0-32.0) Anion Gap 12 MEQ/L (5-15) 8 MEQ/L (5-15) Estimat Glomerular Filtration Rate 41 ML/MIN (>89) 37 ML/MIN (>89) Lactic Acid Level 5.7 mmol/L (0.4-2.0) 2.9 mmol/L (0.4-2.0) Total Protein 6.1 GM/DL (6.4-8.2) Albumin 2.2 GM/DL (3.4-5.0) Alkaline Phosphatase 86 U/L (45-117) Aspartate Amino Transf (AST/SGOT) 520 U/L (15-37) Alanine Aminotransferase (ALT/SGPT) 452 U/L (12-78) Total Bilirubin 0.5 MG/DL (0.2-1.0) Protein Corrected Calcium 7.8 MG/DL (8.5-10.1) Blood Gas Puncture Site ART LINE Blood Gas Patient Temperature 98.6 Blood Gas HCO3 29 mmol/L (22-26) Blood Gas Base Excess 3.4 mmol/L (-2-2) Blood Gas Oxygen Saturation 93 % (90-100) Arterial Blood pH 7.32 (7.380-7.420) Arterial Blood Partial Pressure CO2 57 mmHg (38-42) Arterial Blood Partial Pressure O2 92 mmHg (61-120) Arterial Blood Oxygen Content 10.7 Vol % (12.0-20.0) Arterial Blood Carboxyhemoglobin 3.0 % (0-4) Arterial Blood Methemoglobin 0.9 % (0-2) Blood Gas Hemoglobin 8.0 G/DL (12.0-16.0) Oxygen Delivery Device VENTILATOR Blood Gas Ventilator Setting AC16/500/+5PEEP Blood Gas Inspired Oxygen 40 % Test 02/01/17 12:05 02/01/17 14:30 02/02/17 03:45 02/02/17 12:41 Lactic Acid Level 1.7 mmol/L (0.4-2.0) Potassium Level 5.1 MEQ/L (3.5-5.1) 4.3 MEQ/L (3.5-5.1) White Blood Count 11.2 TH/MM3 (4.0-11.0) Red Blood Count 2.65 MIL/MM3 (4.50-5.90) Hemoglobin 7.6 GM/DL (13.0-17.0) 7.6 GM/DL (13.0-17.0) Hematocrit 23.6 % (39.0-51.0) 23.4 % (39.0-51.0) Mean Corpuscular Volume 89.1 FL (80.0-100.0) Mean Corpuscular Hemoglobin 28.8 PG (27.0-34.0) Mean Corpuscular Hemoglobin Concent 32.3 % (32.0-36.0) Red Cell Distribution Width 18.0 % (11.6-17.2) Platelet Count 145 TH/MM3 (150-450) Mean Platelet Volume 8.7 FL (7.0-11.0) Neutrophils (%) (Auto) 89.6 % (16.0-70.0) Lymphocytes (%) (Auto) 5.7 % (9.0-44.0) Monocytes (%) (Auto) 4.6 % (0.0-8.0) Eosinophils (%) (Auto) 0.0 % (0.0-4.0) Basophils (%) (Auto) 0.1 % (0.0-2.0) Neutrophils # (Auto) 10.0 TH/MM3 (1.8-7.7) Lymphocytes # (Auto) 0.6 TH/MM3 (1.0-4.8) Monocytes # (Auto) 0.5 TH/MM3 (0-0.9) Eosinophils # (Auto) 0.0 TH/MM3 (0-0.4) Basophils # (Auto) 0.0 TH/MM3 (0-0.2) CBC Comment DIFF FINAL Differential Comment Blood Urea Nitrogen 42 MG/DL (7-18) Creatinine 1.17 MG/DL (0.60-1.30) Random Glucose 191 MG/DL (74-106) Total Protein 5.9 GM/DL (6.4-8.2) Albumin 2.1 GM/DL (3.4-5.0) Calcium Level 7.4 MG/DL (8.5-10.1) Phosphorus Level 3.5 MG/DL (2.5-4.9) Magnesium Level 1.8 MG/DL (1.5-2.5) Alkaline Phosphatase 82 U/L (45-117) Aspartate Amino Transf (AST/SGOT) 342 U/L (15-37) Alanine Aminotransferase (ALT/SGPT) 474 U/L (12-78) Total Bilirubin 0.5 MG/DL (0.2-1.0) Sodium Level 129 MEQ/L (136-145) Chloride Level 92 MEQ/L (98-107) Carbon Dioxide Level 29.1 MEQ/L (21.0-32.0) Anion Gap 8 MEQ/L (5-15) Estimat Glomerular Filtration Rate 64 ML/MIN (>89) Protein Corrected Calcium 8.1 MG/DL (8.5-10.1) Random Cortisol 84.8 MCG/DL Hepatitis A IgM Antibody NEGATIVE (NEGATIVE) Hepatitis B Surface Antigen NEGATIVE (NEGATIVE) Hepatitis B Core IgM Antibody NEGATIVE (NEGATIVE) Hepatitis C Antibody REACTIVE (NEGATIVE) Test 02/03/17 03:00 White Blood Count 7.1 TH/MM3 (4.0-11.0) Red Blood Count 3.13 MIL/MM3 (4.50-5.90) Hemoglobin 9.2 GM/DL (13.0-17.0) Hematocrit 27.7 % (39.0-51.0) Mean Corpuscular Volume 88.4 FL (80.0-100.0) Mean Corpuscular Hemoglobin 29.3 PG (27.0-34.0) Mean Corpuscular Hemoglobin Concent 33.2 % (32.0-36.0) Red Cell Distribution Width 17.7 % (11.6-17.2) Platelet Count 106 TH/MM3 (150-450) Mean Platelet Volume 8.6 FL (7.0-11.0) Neutrophils (%) (Auto) 78.4 % (16.0-70.0) Lymphocytes (%) (Auto) 13.4 % (9.0-44.0) Monocytes (%) (Auto) 8.1 % (0.0-8.0) Eosinophils (%) (Auto) 0.0 % (0.0-4.0) Basophils (%) (Auto) 0.1 % (0.0-2.0) Neutrophils # (Auto) 5.5 TH/MM3 (1.8-7.7) Lymphocytes # (Auto) 0.9 TH/MM3 (1.0-4.8) Monocytes # (Auto) 0.6 TH/MM3 (0-0.9) Eosinophils # (Auto) 0.0 TH/MM3 (0-0.4) Basophils # (Auto) 0.0 TH/MM3 (0-0.2) CBC Comment AUTO DIFF Differential Total Cells Counted 100 Neutrophils % (Manual) 81 % (16-70) Band Neutrophils % 1 % (0-6) Lymphocytes % 9 % (9-44) Monocytes % 8 % (0-8) Neutrophils # (Manual) 5.8 TH/MM3 (1.8-7.7) Nucleated Red Blood Cells 4 /100 WBC (0-0) Differential Comment FINAL DIFF MANUAL Blastocytes 1 % (0-0) Platelet Estimate LOW (NORMAL) Platelet Morphology Comment NORMAL (NORMAL) Ovalocytes 1+ (NORMAL) Blood Urea Nitrogen 51 MG/DL (7-18) Creatinine 1.17 MG/DL (0.60-1.30) Random Glucose 168 MG/DL (74-106) Total Protein 5.7 GM/DL (6.4-8.2) Albumin 2.0 GM/DL (3.4-5.0) Calcium Level 7.8 MG/DL (8.5-10.1) Phosphorus Level 3.6 MG/DL (2.5-4.9) Magnesium Level 1.9 MG/DL (1.5-2.5) Alkaline Phosphatase 82 U/L (45-117) Aspartate Amino Transf (AST/SGOT) 186 U/L (15-37) Alanine Aminotransferase (ALT/SGPT) 405 U/L (12-78) Total Bilirubin 1.3 MG/DL (0.2-1.0) Sodium Level 133 MEQ/L (136-145) Potassium Level 4.3 MEQ/L (3.5-5.1) Chloride Level 96 MEQ/L (98-107) Carbon Dioxide Level 29.2 MEQ/L (21.0-32.0) Anion Gap 8 MEQ/L (5-15) Estimat Glomerular Filtration Rate 64 ML/MIN (>89) Total Creatine Kinase 52 U/L (39-308) Troponin I 0.20 NG/ML (0.02-0.05) Result Diagram: 02/03/17 0300 02/03/17 0300 Microbiology Microbiology Date/Time Source Procedure Growth Status 01/31/17 21:40 Sputum Endotracheal Gram Stain - Final Complete 01/31/17 21:40 Sputum Endotracheal Sputum Culture - Final HEAVY GROWTH NORMAL RESPIRATORY EDE Complete 01/31/17 16:30 Sputum Expectorated Sputum Gram Stain - Final Complete 01/31/17 16:30 Sputum Expectorated Sputum Sputum Culture - Final HEAVY GROWTH NORMAL RESPIRATORY EDE Complete 01/31/17 13:35 Urine Catheterized Urine Legionella Antigen - Final PRESUMPTIVE NEGATIVE FOR LEGIONELLA P... Complete 01/31/17 13:35 Urine Catheterized Urine Streptococcus pneumoniae Antigen (M - Final PRESUMPTIVE NEGATIVE FOR STREPTOCOCCU... Complete 01/31/17 11:40 Urine Clean Catch Urine Culture - Final NO GROWTH IN 48 HOURS. Complete Procedures 02/02/17 Intubated 02/02/17 Right femoral central line placement 02/02/17 Right femoral Arterial line . Assessment and Plan Disease Oriented Problem List: (1) Septic shock (2) PEA (Pulseless electrical activity) (3) Respiratory failure (4) Esophageal carcinoma (5) Acute kidney injury (6) Edema (7) Physical deconditioning (8) Anemia Symptom Scale: (1) Shortness of breath 0-10 Scale: Unable to quantify Comment: Intubated on mechanical ventilation. (2) Pain 0-10 Scale: Unable to quantify Comment: Multifactorial. Currently on fentanyl drip. (3) Debility 0-10 Scale: Unable to quantify Comment: Progressive. Pertinent Non-Medical Issues Psychosocial: Mr La is a 61-year-old male who was born in [place], [place]. Patient moved to [place] at the age of 15. He never attended high school after he moved to [place] nor obtained his GED. 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 Patient worked a lot with chemicals in [employer]. No service. Patient is , has 1 daughter. Patient residing with girlfriend Luly Bautista for the past 40 years. Spiritual: [employer] affiliation. Legal: Advance directives completed. Copy in file. Ethical issues impacting care: Patient unable to participate in medical decision making given clinical condition, intubated/sedated. . Important Contacts Daughter -Mena La Significant although Luly Bautista or . . 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 Patient presented to the ED via EMS 02/02/17 from a intermediate for shortness of breath and weakness. Patient sustained PEA arrest, underwent CPR and ACLS drugs with ROS, subsequently intubated and placed on mechanical ventilation. Patient was recently discharged from the [facility] on 01/30/17 after hospitalization x 2 months. During hospitalization, his clinical course was complicated by NSTEMI, patient underwent PCI with bare metal stents on 11/30/16. Clinical course further complicated by persistent fever, MSSA bacteremia, worsening sepsis, A. fib with RVR and persistent respiratory failure, intubation and mechanical ventilation x3 times, pericardial effusion requiring pericardiocentesis and pleural effusion with chest tube placement. Patient's overall prognosis is poor given multiple chronic ongoing comorbidities, recent prolonged hospitalization x 2 months with multiple complications, malignancy, malnutrition, most recent PEA arrest and profound physical deconditioning. Patient remains at very high risk for further complications, continued decline and . . Code Status: Full Code Plan * CODE STATUS: Full Code. Risks, benefits and limitations of CPR were discussed with significant other Luly and ruddy San. * CAYLA CARE SURROGATE: Patient unable to participating medical decision making given clinical condition, intubated/sedated. Designation of healthcare surrogate completed during prior hospitalization. Patient designated his daughter Mena La AND significant other Luly Bautista as healthcare surrogate decision maker. * GOALS OF CARE: 02/03/17 -Patient's significant other Luly AND pt's ruddy San electing to continue current aggressive management while ongoing goals of care conversation. Family made aware that patient's clinical condition remains critical; high risk for further complications, continue decline and . Discussed patient's overall poor prognosis given multiple chronic ongoing comorbidities, recent prolonged hospitalization x 2 months with multiple complications, malignancy, malnutrition, most recent PEA arrest and profound physical deconditioning. * SYMPTOMS: ==Shortness of breath, multifactorial. Currently intubated on mechanical ventilation. = Pain, secondary to ET tube, lines, bedrest, recent prolonged hospitalization. Currently on fentanyl drip. = Debility, secondary to chronic comorbidities, acute events, present prolonged hospitalization. Likely to continue to worsen. * Case discussed with bedside ROMAN Arreola. * Ongoing emotional support and active listening provided to patient's significant other Luly and ruddy San. There were both encouraged to continue goals of care conversation. * Palliative care contact information has been provided to patient's family. Family receptive to palliative care follow-ups. * Palliative care will continue to follow-up for further clarifications goals of care patient's clinical condition continues to evolve. . Time Spent Total Floor Time (mins): 39 (Total time to include review medical records, physical exam, telephone conversation with patient's ruddy San, separate telephone conversation with patient's significant other Luly, case discussion with bedside RN Elba.) >50% Counseling/Coord of Care: Yes Attestation To help prompt me to consider important information that might be impacting today's encounter and assessment, information from prior notes written by myself or my colleagues may have been "brought forward" into today's note. My signature on this note, however, is an attestation that I personally performed the exam, history, and/or decision-making noted today, and, unless otherwise indicated, the interactions with patient, family, and staff as well as the review of records all occurred today. I also attest that the listed assessment and stated plan reflect my best clinical judgment today based on the combination of historical information, prior notes, and today's exam/ interactions. When time spent is documented, it refers only to time spent today by the signer, or if indicated, combined time spent today by collaborating physician/nurse practitioner. Ida Alston Feb 03, 2017 11:03
--- NOTE | 2017-02-03 11:15 | MB ---
cc: DARRYL MUSTAFA DATE OF CONSULTATION 02/03/2017 DATE OF 06/24/1949 REASON FOR CONSULTATION SVT status post cardioversion/VE arrest. HISTORY OF PRESENT ILLNESS 61-year-old male with a past medical history significant for CAD, left PCI in December, esophageal adenocarcinoma, anemia, GI bleeding, atrial flutter, who presented to the hospital on 01/31 with acute onset of hypoxemia, severe respiratory distress, hypotension, amniotic bradycardic. The patient was intubated in the emergency department when he also went into PEA arrest with successful return of spontaneous circulation after epinephrine and bicarb was given. The patient was found to be severely hyperkalemic with an elevated lactic acid. He was admitted to the ICU for further management and evaluation. Of note, he has been recently admitted to the hospital with a stent was infection, pneumonia. He year he has been seen by nephrology for acute kidney injury and hyperkalemia GI for the esophageal adenocarcinoma and upper GI bleeding and also by palliative care. Cardiology has been consulted given. He had an episode of the CT has nine with a heart rate in the 200s which was not responsive to the office and then the patient was successfully cardioverted. Thus, cardiology has been consulted for further management and evaluation. REVIEW OF SYSTEMS Unobtainable given the patient is sedated and intubated. PAST MEDICAL HISTORY 1. Esophageal adenocarcinoma 2. Squamous cell carcinoma of the skin 3. Coronary artery disease status post previous stent in the proximal circumflex 4. Anemia 5. Atrial flutter PAST SURGICAL HISTORY 1. Previous coronary stent 2. Previous esophageal stent placement SOCIAL HISTORY He lives in a skilled nursing. He has a history of alcohol and tobacco abuse. ALLERGIES PENICILLIN G. MEDICATIONS Cardiac home medications: 1. Aspirin 81 mg p.o. daily. 2. Plavix 75 mg p.o. daily. 3. Amiodarone 200 mg p.o. b.i.d. 4. Lipitor 40 mg p.o. daily 5. Diltiazem 90 mg p.o. q.6 h. 6. Lasix 40 mg p.o. b.i.d. 7. Metoprolol 25 mg p.o. q.8 h. PHYSICAL EXAMINATION VITAL SIGNS: Temperature 97.6, respiratory rate 18, pulse 75, blood pressure 105/44 off pressors, O2 saturations, he is 100% with an FIO2 of 0.04. GENERAL: He is intubated, sedated in no acute distress. NECK: No carotid bruits. HEART: Regular rate and rhythm. LUNGS: Ventilated. ABDOMEN: Soft, nontender, nondistended. EXTREMITIES: There is positive edema. No cyanosis. Pulses diminished throughout. DATA CBC WBC trending down to 7.1 from 16, hemoglobin 9.2 and hematocrit of 27 trending up from 23 after blood transfusion. Platelet count 106, INR of 1.3. Chemistry sodium 133, potassium 4.3, BUN 51, creatinine 1.1. AST 186, ALT 405. Troponin 0.12 and 0.20. Urinalysis, there is a moderate amount of blood, as well as protein. Microbiology. There is no growth in blood cultures, sputum or urine cultures. EKG sinus bradycardia. Liver ultrasound, there is a cirrhotic liver. Chest x-ray shows some consolidation versus atelectasis on the basis of the right lung. Echocardiogram back on December of this year shows an EF of 60-65% with no valvular abnormalities or wall motion abnormalities. ASSESSMENT/PLAN 61-year-old male critically ill with a history of esophageal cancer, CAD which has had a complicated stay with respiratory failure and GI bleeding, and PEA arrest. From the cardiac standpoint, he has been stable until yesterday when he went to an episode of SVT. The patient was successfully shocked out. He has a history of atrial flutter which should be reasonable to think that he had an exacerbation of his SVT given his current poor clinical status. At this time , I would continue aspirin and Plavix, as well as start low-dose beta blockers and optimize as the patient's heart rate and blood pressure tolerates. Also I would avoid any electrolyte abnormalities. No invasive cardiac intervention is recommended at this time given the history of recent GI bleeding. Continue supportive care per primary team. We will be available on a p.r.n. basis for any other question or concerns. MD CINDY Benavidez/ADELE /10:35 AM /10:54 AM VON
[2017-02-03] MEDS: LEVOFLOXACIN 500 MG PREMIX INJ 100 ML IV SCH (12:07)
[2017-02-03] MEDS ORDERED: PROPOFOL 200 MG/20 ML AMP IV ONE (13:30)
[2017-02-03] MEDS: VANCOMYCIN INJ 1,600 MG in SODIUM CHLORID 0.9% 500 ML INJ 500 ML IV SCH (14:07)
--- NOTE | 2017-02-03 15:07 | HHI.IDPN ---
Subjective Subjective Remarks Chart reviewed Patient known to me from his previous admissions He has known head and neck CA, and esophageal mass, S/P esophageal stent during his last hospitalization He was treated for high grade MSSA bacteremia, due to infected port Port removed and he completed Abx Rx with Ancef on Jan 15 He was also treated for PSAE PNA during his last admission He also had evidence of serositis and had pleural effusions and pericardial effusions that were both drained, C/S negative (but he was on Abx), cytology negative for malignancy He was D/C to SNF 01/30 and readmitted 01/31 Notes reviewed D/W RN Episode of SVT last night - cardioverted, in NSR now Off pressors On the vent, awake and responding Having echo at bedside - EF prob 40% has AI and MR, no pericardial effusion, has pleural effusions Last echo Jan 07, no valvular abnormality, EF 60-65% Had EGD, has bleeding from esophageal mass, stent open and in position. WBC down to normal Creatinine stable LFT improving BC negative Sputum normal adama Antibiotics cefepime levaquine micafungin flagyl vancomycin Lines Femoral A line and TLC Past Medical History Reviewed Allergies: Coded Allergies: penicillin G (Unverified Allergy, Mild, Hives, 12/30/16) Objective . Vital Signs Date Time Temp Pulse Resp B/P (MAP) Pulse Ox O2 Delivery O2 Flow Rate FiO2 02/03/17 11:17 100 40 02/03/17 10:00 74 02/03/17 08:14 100 40 02/03/17 08:00 71 02/03/17 08:00 40 02/03/17 08:00 96.6 71 18 102/42 (62) 100 91/55 (67) 02/03/17 06:00 76 02/03/17 04:08 100 40 02/03/17 04:00 40 02/03/17 04:00 97.6 75 18 105/44 (64) 100 02/03/17 04:00 75 02/03/17 02:00 78 02/03/17 01:07 99 40 02/03/17 00:00 80 02/03/17 00:00 40 02/03/17 00:00 97.7 80 18 104/44 (64) 100 02/02/17 22:20 97.9 83 18 105/46 100 02/02/17 22:09 100 40 02/02/17 22:00 84 02/02/17 20:42 97.9 87 18 103/44 100 02/02/17 20:23 97.8 88 18 103/46 100 02/02/17 20:00 90 02/02/17 20:00 40 02/02/17 20:00 97.9 90 18 104/45 (64) 100 Automatic Cuff 02/02/17 19:30 100 40 02/02/17 18:00 109 02/02/17 16:00 40 02/02/17 16:00 107 02/02/17 16:00 97.9 107 18 118/58 (78) 96 128/46 (73) 02/02/17 15:34 96 40 . Laboratory Tests Test 02/02/17 03:45 02/02/17 12:41 02/03/17 03:00 White Blood Count 11.2 TH/MM3 7.1 TH/MM3 Red Blood Count 2.65 MIL/MM3 3.13 MIL/MM3 Hemoglobin 7.6 GM/DL 7.6 GM/DL 9.2 GM/DL Hematocrit 23.6 % 23.4 % 27.7 % Mean Corpuscular Volume 89.1 FL 88.4 FL Mean Corpuscular Hemoglobin 28.8 PG 29.3 PG Mean Corpuscular Hemoglobin Concent 32.3 % 33.2 % Red Cell Distribution Width 18.0 % 17.7 % Platelet Count 145 TH/MM3 106 TH/MM3 Mean Platelet Volume 8.7 FL 8.6 FL Neutrophils (%) (Auto) 89.6 % 78.4 % Lymphocytes (%) (Auto) 5.7 % 13.4 % Monocytes (%) (Auto) 4.6 % 8.1 % Eosinophils (%) (Auto) 0.0 % 0.0 % Basophils (%) (Auto) 0.1 % 0.1 % Neutrophils # (Auto) 10.0 TH/MM3 5.5 TH/MM3 Lymphocytes # (Auto) 0.6 TH/MM3 0.9 TH/MM3 Monocytes # (Auto) 0.5 TH/MM3 0.6 TH/MM3 Eosinophils # (Auto) 0.0 TH/MM3 0.0 TH/MM3 Basophils # (Auto) 0.0 TH/MM3 0.0 TH/MM3 CBC Comment DIFF FINAL AUTO DIFF Differential Comment FINAL DIFF MANUAL Differential Total Cells Counted 100 Neutrophils % (Manual) 81 % Band Neutrophils % 1 % Lymphocytes % 9 % Monocytes % 8 % Neutrophils # (Manual) 5.8 TH/MM3 Nucleated Red Blood Cells 4 /100 WBC Blastocytes 1 % Platelet Estimate LOW Platelet Morphology Comment NORMAL Ovalocytes 1+ Laboratory Tests Test 02/02/17 03:45 02/03/17 03:00 Blood Urea Nitrogen 42 MG/DL 51 MG/DL Creatinine 1.17 MG/DL 1.17 MG/DL Random Glucose 191 MG/DL 168 MG/DL Total Protein 5.9 GM/DL 5.7 GM/DL Albumin 2.1 GM/DL 2.0 GM/DL Calcium Level 7.4 MG/DL 7.8 MG/DL Phosphorus Level 3.5 MG/DL 3.6 MG/DL Magnesium Level 1.8 MG/DL 1.9 MG/DL Alkaline Phosphatase 82 U/L 82 U/L Aspartate Amino Transf (AST/SGOT) 342 U/L 186 U/L Alanine Aminotransferase (ALT/SGPT) 474 U/L 405 U/L Total Bilirubin 0.5 MG/DL 1.3 MG/DL Sodium Level 129 MEQ/L 133 MEQ/L Potassium Level 4.3 MEQ/L 4.3 MEQ/L Chloride Level 92 MEQ/L 96 MEQ/L Carbon Dioxide Level 29.1 MEQ/L 29.2 MEQ/L Anion Gap 8 MEQ/L 8 MEQ/L Estimat Glomerular Filtration Rate 64 ML/MIN 64 ML/MIN Protein Corrected Calcium 8.1 MG/DL Random Cortisol 84.8 MCG/DL Total Creatine Kinase 52 U/L Troponin I 0.20 NG/ML Microbiology Date/Time Source Procedure Growth Status 01/31/17 21:40 Sputum Endotracheal Gram Stain - Final Complete 01/31/17 21:40 Sputum Endotracheal Sputum Culture - Final HEAVY GROWTH NORMAL RESPIRATORY ADAMA Complete 01/31/17 16:30 Sputum Expectorated Sputum Gram Stain - Final Complete 01/31/17 16:30 Sputum Expectorated Sputum Sputum Culture - Final HEAVY GROWTH NORMAL RESPIRATORY ADAMA Complete Imaging Allergies Coded Allergies penicillin G (Unverified Allergy, Mild, Hives, 12/30/16) Chest X-Ray 02/02/17 0000 Signed Impressions: Service Date/Time: Thursday, February 02, 2017 07:55 - CONCLUSION: Slow interval improvement. Supportive apparatus good position. Everett Pollock MD FACR Liver Ultrasound 02/01/17 0000 Signed Impressions: Service Date/Time: Wednesday, February 01, 2017 16:32 - CONCLUSION: 1. Cirrhotic appearing liver with trace ascites in the pelvis. 2. Gallbladder wall thickening and mild pericholecystic fluid without gallstones. These findings are routinely seen in the setting of cirrhosis. If there is significant clinical concern regarding cholecystitis, HIDA scan may be performed. 3. Bilateral pleural effusions. Escobar Joiner MD Chest X-Ray 01/31/17 0828 Signed Impressions: Service Date/Time: Tuesday, January 31, 2017 10:37 - CONCLUSION: 1. ET tube in good position. 2. Clinically. 3. Bilateral pleural effusions with partial right. 4. Consolidation/atelectasis at the bases being worse on the right. Washington Chou MD Chest CT 01/31/17 0000 Signed Impressions: Service Date/Time: Tuesday, January 31, 2017 12:52 - CONCLUSION: 1. Moderate bilateral pleural effusions with associated bibasilar airspace consolidation. 2. Mild patchy airspace disease in the lingula and right middle lobe. 3. Diffuse soft tissue prominence of the mid to distal esophagus with esophageal stent in place consistent with history of esophageal CA. Administered contrast extends to the proximal esophagus. 4. ETT in good position. NGT just be in the GE junction. 5. Prominent coronary artery calcifications. Escobar Joiner MD Abdomen/Pelvis CT 01/31/17 0000 Signed Impressions: Service Date/Time: Tuesday, January 31, 2017 12:52 - CONCLUSION: 1. No definite CT findings to explain patient's lactic acidosis. Specifically, no evidence for bowel infarction or perforation. 2. Moderate bilateral pleural effusions with associated bilateral lower lobe airspace consolidation. 3. Diffusely prominent distal esophagus with distal esophageal stent in place. NGT courses through the stent with tip just beyond the GE junction. 4. Cirrhotic appearing liver without evidence for significant ascites or focal drainable fluid collection. Escobar Joiner MD Physical Exam GENERAL: Awake and alert, on the vent, not in distress SKIN: Warm and dry, no rash, edematous. No jaundice. NO embolic lesions HEAD: Atraumatic. Normocephalic. EYES: Pupils equal and round and reactive. NO petechia or hemorrhage. No scleral icterus. No injection or drainage. . ENT: Nose without bleeding or purulent drainage. Orally intubated NECK: Trachea midline. Supple, nontender. CARDIOVASCULAR: Regular rate and rhythm. Harsh systolic murmur at base RESPIRATORY/CHEST: Symmetric, respirations. Coarse BS bilaterally, decreased at bases GASTROINTESTINAL: Abdomen soft, non-tender, nondistended. . No guarding. Bowel sounds present. GENITOURINARY: Saxena catheter in place with yellow urine MUSCULOSKELETAL: Extremities without clubbing, cyanosis. Has edema of hands and feet, no calf tenderness. No mottling or clubbing. NEUROLOGICAL: Awake, tracking. PSYCHIATRIC: calm LINE: NO evidence of infection Assessment & Plan Remarks IMPRESSION Shock, sepsis, lactic acidosis, leukocytosis > 22K on presentation - his lactic acidemia improved - source? lung, UA with some pyuria Respiratory failure, ?PNA, plus CHF Recent Rx for MSSA sepsis Recent Rx PSAE PPNA Known head and neck CA Esophageal CA, S/P stent Recent workup for pleural and pericardial effusions, no malignancy, (+) inflammation PCN allery but tolerated Cephalosporins PLAN Stop vanco Continue cefepime Stop levaquin Stop micafungin Stop Flagyl May benefit from tap of large effusions Monitor progress D/W Carola Dick MD Feb 03, 2017 15:07
[2017-02-03] MEDS: fentaNYL DRIP 250 ML IV PRN ×2 (16:27→20:50)
--- NOTE | 2017-02-03 17:28 | PD.PROCEDR ---
GI Procedure REFERRING PHYSICIAN Dr. lopez PROCEDURE PERFORMED EGD INDICATION FOR PROCEDURE Anemia, upper GI bleed PROCEDURE: The procedure, risks and benefits were discussed with Mr. La and informed consent was obtained. Anesthesia sedated him with Diprivan. He was placed in the left lateral decubitus position. EGD: The Pentax videoscope was introduced through the oropharynx and advanced to the second portion of the duodenum under direct visualization. Retroflexion was performed in the stomach. FINDINGS: The esophagus again noted was an esophageal mass in the mid esophagus this was friable and when touched was oozing blood also noted was an esophageal stent this was in good position and covering most of the mass but apparently what I'm seeing is the overgrowth more proximal to the stent but at this point in time it does not appear to be occluding the esophagus but certainly is a source of bleeding with little in the way of endoscopic therapy that I can perform at this point Stomach for the most part this was unremarkable no active bleeding from the stomach The duodenum this too was unremarkable ESTIMATED BLOOD LOSS: Minimal SPECIMENS REMOVED: None COMPLICATIONS: None IMPRESSION: Esophageal cancer PLAN: Continue with current supportive care Monitor labs and transfuse as needed or if needed Avoid anticoagulation Case discussed with Ortiz Hay MD Feb 03, 2017 17:28
[2017-02-03] MEDS: MIDAZOLAM 100 MG/100 ML INJ 100 ML IV PRN (18:51)
[2017-02-03] MEDS: DEXT 5%-NACL 0.9% 1000 ML INJ 1,000 ML IV SCH (20:49)
[2017-02-04] VITALS (16 sets, daily range): BP systolic 89–136; BP diastolic 44–64; PULSE 68–93; RESP 18–19; TEMP 97–97.9; O2SAT 90–100
[2017-02-04] MEDS: CEFEPIME INJ 2,000 MG in SODIUM CHLORIDE 0.9% INJ 100 ML IV SCH ×2 (01:38→17:15)
[2017-02-04] MEDS: INSULIN NovoLIN REGULAR SUPPLEMENTAL SCALE SQ SCH ×6 (01:55→21:38)
[2017-02-04] MEDS: CHLORHEXIDINE GLUCONATE 2 % 1 PACK (2 CLOTHS) TOP SCH ×2 (01:57→20:19)
[2017-02-04] MEDS: RESP: ALBUTEROL 2.5 MG/IPRATROPIUM 0.5 MG NEB (SCH) INH ×2 (03:49→08:18)
[2017-02-04 04:45] LABS: AUTOMATED NEUTROPHIL # 5.1 TH/MM3 (1.8-7.7); HEMATOCRIT 27.5 % (39.0-51.0); LYMPH % 7.9 % (9.0-44.0); LYMPHOCYTE # 0.5 TH/MM3 (1.0-4.8); MEAN CELL VOLUME 89.9 FL (80.0-100.0); MEAN CORPUSCULAR HEMOGLOBIN 29.8 PG (27.0-34.0); MEAN CORPUSCULAR HGB CONC 33.1 % (32.0-36.0); MONO % 4.7 % (0.0-8.0); NEUT % 87.4 % (16.0-70.0); PLATELET COUNT 92 TH/MM3 (150-450); RED BLOOD COUNT 3.06 MIL/MM3 (4.50-5.90); RED CELL DISTRIBUTION WIDTH 17.3 % (11.6-17.2); WHITE BLOOD COUNT 5.8 TH/MM3 (4.0-11.0)
[2017-02-04 04:52] LABS: ANION GAP 9 MEQ/L (5-15); AST (GOT) 87 U/L (15-37); BICARBONATE 26.9 MEQ/L (21.0-32.0); BLOOD UREA NITROGEN 56 MG/DL (7-18); CHLORIDE 99 MEQ/L (98-107); GLOMERULAR FILTRATION RATE 79 ML/MIN (>89); HEMO FLAGS AUTO DIFF; SODIUM (NA) 135 MEQ/L (136-145)
--- NOTE | 2017-02-04 04:53 | RADRPT ---
EXAM DATE/TIME: 02/04/2017 04:31 [facility] COMPARISON: CHEST SINGLE AP, February 02, 2017, 7:55. INDICATIONS : Short of breath. MEDICAL HISTORY : Diabetes mellitus type 2. Squamous cell carcinoma, esophageal carcinoma SURGICAL HISTORY : Coronary artery stent. Appendectomy. Port removed. ENCOUNTER: Subsequent ACUITY: 2 months PAIN SCORE: 0/10 LOCATION: Bilateral chest FINDINGS: A single portable frontal view of the chest shows an endotracheal tube with the tip 5 cm proximal to elizabeth. Bilateral pleural effusions and bibasilar pulmonary infiltrates. Appearance is similar to the prior study. Mild cardiomegaly. A degenerative spine. CONCLUSION: Unchanged exam with bilateral pleural effusions and bibasilar pulmonary infiltrates. Kulwant Cowart Jr., MD on February 04, 2017 at 4:51 Board Certified Radiologist. This report was verified electronically.
[2017-02-04 04:56] LABS: ALKALINE PHOSPHATASE 72 U/L (45-117); ALT (GPT) 295 U/L (12-78); TOTAL BILIRUBIN ADULT 0.8 MG/DL (0.2-1.0)
[2017-02-04 05:14] LABS: PLATELET ESTIMATE SMEAR LOW (NORMAL); PLATELET MORPHOLOGY NORMAL (NORMAL); SCAN/DIFF AUTO DIFF CONFIRMED
[2017-02-04] MEDS: HYDROCORTISONE SOD SUCCINATE 100 MG VIAL IV PUSH SCH ×3 (05:32→17:17)
--- NOTE | 2017-02-04 06:49 | MB ---
cc: RICHARD BARRIENTOS DATE OF CONSULTATION 02/03/2017 DATE OF 1955 REASON FOR CONSULTATION Patient with a history of head and neck malignancy as well as gastroesophageal cancer who was admitted to the hospital with respiratory failure and septic shock. HISTORY OF PRESENT ILLNESS This is a 61-year-old male who was recently discharged from the hospital on the 30 of January. [facility] He has a history of head and neck cancer. He also has a gastroesophageal cancer. He developed obstruction and had an esophageal stent during his last hospitalization. His previous hospitalization was complicated with high-grade MSSA bacteremia due to infected port. He also had Pseudomonas pneumonia. He also developed serositis and pleural effusions and pericardial effusions which were drained. He had a previous prolonged hospitalization. The patient was brought to the emergency room and 01/31/2017 from the SNF with hypoxemia and acute respiratory distress. He was found to be hypotensive with a systolic blood pressure in the 80s. He was also bradycardic with a heart rate in the 50s and he was hypothermic. He was subsequently intubated and placed on mechanical ventilation. In the emergency room, he developed a wide complex tachycardia. He was found to be severely hyperkalemic with a potassium 6.9. He had lactic acidosis with a lactic acid of 12.5. The patient subsequently underwent a cardiac arrest and had PEA. He received epinephrine, bicarb and then had a successful return of spontaneous circulation. He was resuscitated with crystalloids and was placed on a Levophed drip. His hyperkalemia was corrected, the patient is currently in the intensive care unit. He remains on mechanical ventilation. The patient is now off all pressors. Weaning trials are undergoing to get him off the ventilator. Last night he developed SVT with a heart rate of 204, he was given adenosine 6 mg and then was cardioverted with 50 joules. A normal sinus rhythm was obtained. He was also transfused two units of packed red blood cells overnight. The patient is being evaluated by cardiology. He is also seen by infectious disease and is currently on broad-spectrum antibiotics. On admission, a CT scan of the chest was obtained which showed moderate bilateral pleural effusion with associated bibasilar airspace consolidation. There was mild patchy airspace disease in the lingula and right middle lobe. He also had a CT of the abdomen and pelvis. There was diffusely prominent distal esophageal mass with distal esophageal stent in place. Liver appears cirrhotic. There was there was no significant ascites. REVIEW OF SYSTEMS A comprehensive 14-point review of systems was completed which is negative except as described in HPI. PAST MEDICAL HISTORY 1. Head and neck cancer. 2. Gastroesophageal adenocarcinoma 3. Esophageal stricture with stent placement 4. Coronary artery disease with previous stent to the proximal Circumflex. 5. History of pleural and pericardial effusion. 6. Anemia 7. History of A. flutter. PAST SURGICAL HISTORY 1. Coronary stent placement 2. Esophageal stent placement 3. Biopsy of the esophageal mass 4. Endoscopic ultrasound MEDICATIONS 1. Aspirin 2. Protonix 40 mg q.12 h IV 3. Solu-Cortef 50 mg IV q.6 h 4. Cefepime 2 grams IV q.12 h 5. Docusate 6. Propofol 7. Plavix 75 mg daily 8. DuoNebs q.6 h p.r.n. 9. Senna Docusate 10. Lactulose 11. Sliding scale insulin ALLERGIES He is allergic to PENICILLIN. FAMILY HISTORY Noncontributory to this admission. SOCIAL HISTORY Unable to be obtained due to altered mental status and respiratory failure. LABORATORY DATA WBC 7.1, hemoglobin 9.2, platelet count 106. Serum chemistries show sodium of 133, potassium 4.3, chloride 96, CO2 29.2, anion gap 8, creatinine 1.17, GFR 64, calcium is 7.8, magnesium 1.9, total bilirubin 1.3, AST is 186, ALT is 405, alk phos is 82, troponin is 0.2, albumin 2. IMAGING STUDIES Was reviewed in the EMR. ASSESSMENT/PLAN This is a 61-year-old male with a history of head and neck malignancy as well as gastroesophageal cancer who is currently being admitted to the intensive care unit. He [facility] with acute respiratory failure. He was intubated. 1. Acute respiratory failure 2. Hypertension and sepsis 3. HCAP pneumonia 4. Sepsis and lactic acidosis 5. Anemia This is an acutely ill patient with multiple medical problems as stated above. He is currently in respiratory distress and is septic. He is on maximum support. I will defer treatment for his respiratory failure and infection to primary team and infectious disease respectively. He has a history of head and neck malignancy and well as a gastroesophageal cancer. After his discharge from the hospital, he was unable to follow up in the oncology clinic. He has not been initiated on chemotherapy or radiation treatments for his gastroesophageal cancer at this time. He is acutely ill at this time. We need to address his acute problems at this time. We will continue to monitor him closely. We will try to keep his hemoglobin greater than 8 in the setting of coronary artery disease. He has untreated gastric cancer which may progress. This is a difficult situation in a patient who has multiple medical issues at this time Thank you for allowing me to participate in the care of this patient. I will continue to follow this patient along. MD MARCIA Noriega/ADELE /1:25 AM /6:28 AM MTDD
[2017-02-04] MEDS ORDERED: BUMETANIDE INJ 1 MG/4 ML VIAL IV PUSH ONE (07:00)
[2017-02-04] MEDS ORDERED: ALBUMIN HUMAN 25% 25 GM/100 ML BAGP IV ONE (07:00)
[2017-02-04] MEDS: COLLAGENASE OINT 30 GM TUBE TOPICAL SCH (08:30)
[2017-02-04] MEDS: PANTOPRAZOLE SODIUM 40 MG VIAL IV PUSH SCH ×2 (08:31→20:18)
[2017-02-04] MEDS: DOCUSATE SODIUM 50 MG/SENNA 8.6 MG TAB PO SCH ×2 (08:31→20:18)
[2017-02-04] MEDS: ASPIRIN EC 81 MG TABEC PO SCH ×2 (08:31→09:00)
[2017-02-04] MEDS: CLOPIDOGREL 75 MG TAB PO SCH (08:32)
--- NOTE | 2017-02-04 08:50 | HHI.CCPN ---
Subjective Remarks/Hospital Course The patient is a 61-year-old male with multiple comorbidities which include esophageal adenocarcinoma status post stent placement in December, coronary artery disease with previous stent placement in the proximal circumflex, squamous cell carcinoma of the skin and anemia and a history of atrial flutter. The patient presented to the [facility] Emergency Department [facility] a local [facility] for hypoxemia and severe respiratory distress. On arrival to the emergency room, the patient was hypotensive with a systolic blood pressure in the 80s, bradycardic with heart rate in the 50s and had a temperature of 97.6. Due to severe respiratory distress, he was subsequently intubated and placed on full mechanical ventilation. In addition, Versed drip was initiated. In the emergency room, the patient was found to have wide complex tachycardia and his laboratory data showed severe hyperkalemia with a potassium level of 6.9 and lactic acidosis with a lactic acid level of 12.5. The patient went into PEA arrest in the emergency room and he received epinephrine, bicarb with successful return of spontaneous circulation. He received approximately 1.5 liters of crystalloids and was started on Levophed drip which is currently 20 mics. For hyperkalemia, the patient was given 2 ampules of bicarb, calcium gluconate and 10 units of IV insulin D50 and placed on bicarb drip. A chest x-ray post- intubation showed ET tube above the elizabeth, bilateral pleural effusions with consolidation and atelectasis at the bases right greater than left. An ABG post intubation appears venous blood gas which showed a pH of 7.13, CO2 28, pAO2 44, bicarb of 9, saturation 53% with a base excess of -18.6. This was on assist control ventilation rate of 16, tidal volume 550, PEEP of 5 and 100% FIO2. The patient is scheduled for CT scan of the abdomen and pelvis along with CT scan of the chest. He was discharged from the hospital yesterday after he was admitted on December 24. On his previous admission, the patient had an Pseudomonas pneumoniae. In addition, he had MSSA bacteremia back in November. 02/01 Patient remains intubated with versed and Fentnayl drips. Levophed down 12 mics from 20 and on Vasopressin 0.04 mics. Lactic acid is trending down 2.9 this morning from 12.5 on arrival. On Bicarb drip. Afebrile. 02/02 No events overnight. Sedated with Versed and Fentanyl drips. Levophed down 6 mics and on Vasopressin 0.04. Renal function is improving with Cr: 1.17 from 1.86. Off Bicarb drip. 02/03 Patient was in SVT last night HR 204 given Adenosine 6mg+12mg then cardioverted with 50J now in NSR HR 70's. Sedated with Versed and Fentanyl drips. Given 2units PRBC overnight Hgb 9.2 this morning. Off all pressors. For EGD today. 02/04: Remains intubated sedated. Wakes up easily follows commands. Remains off all pressors platelet count decreasing 92 today. Hemoglobin stable. EGD esophageal mass/known Ca in the mid esophagus this was friable and when touched was oozing blood, an esophageal stent this was in good position and covering most of the mass but there is overgrowth more proximal to the stent does not appear to be occluding the esophagus Objective Vital Signs Date Time Temp Pulse Resp B/P (MAP) Pulse Ox O2 Delivery O2 Flow Rate FiO2 02/04/17 08:19 100 35 02/04/17 04:00 97.2 68 18 108/44 (65) 01/31/17 12:34 Ventilator Intake and Output 02/04/17 02/04/17 02/05/17 08:00 16:00 00:00 Intake Total 100 ml Output Total 500 ml Balance -400 ml Result Diagram: 02/04/17 0330 02/04/17 0330 Imaging Last Impressions Chest X-Ray 02/02/17 0000 Signed Impressions: Service Date/Time: Thursday, February 02, 2017 07:55 - CONCLUSION: Slow interval improvement. Supportive apparatus good position. Everett Pollock MD FACR Liver Ultrasound 02/01/17 0000 Signed Impressions: Service Date/Time: Wednesday, February 01, 2017 16:32 - CONCLUSION: 1. Cirrhotic appearing liver with trace ascites in the pelvis. 2. Gallbladder wall thickening and mild pericholecystic fluid without gallstones. These findings are routinely seen in the setting of cirrhosis. If there is significant clinical concern regarding cholecystitis, HIDA scan may be performed. 3. Bilateral pleural effusions. Escobar Joiner MD Chest CT 01/31/17 0000 Signed Impressions: Service Date/Time: Tuesday, January 31, 2017 12:52 - CONCLUSION: 1. Moderate bilateral pleural effusions with associated bibasilar airspace consolidation. 2. Mild patchy airspace disease in the lingula and right middle lobe. 3. Diffuse soft tissue prominence of the mid to distal esophagus with esophageal stent in place consistent with history of esophageal CA. Administered contrast extends to the proximal esophagus. 4. ETT in good position. NGT just be in the GE junction. 5. Prominent coronary artery calcifications. Escobar Joiner MD Abdomen/Pelvis CT 01/31/17 0000 Signed Impressions: Service Date/Time: Tuesday, January 31, 2017 12:52 - CONCLUSION: 1. No definite CT findings to explain patient's lactic acidosis. Specifically, no evidence for bowel infarction or perforation. 2. Moderate bilateral pleural effusions with associated bilateral lower lobe airspace consolidation. 3. Diffusely prominent distal esophagus with distal esophageal stent in place. NGT courses through the stent with tip just beyond the GE junction. 4. Cirrhotic appearing liver without evidence for significant ascites or focal drainable fluid collection. Escobar Joiner MD Objective Remarks GENERAL: Patient is 61 yo critically ill intubated , sedated SKIN: Warm and dry. HEAD: Normocephalic. EYES: No scleral icterus. No injection or drainage. NECK: Supple, trachea midline. No JVD or lymphadenopathy. CARDIOVASCULAR: Regular rate and rhythm without murmurs, gallops, or rubs. RESPIRATORY: Breath sounds equal bilaterally. Coarse BS GASTROINTESTINAL: Abdomen soft, non-tender, nondistended. MUSCULOSKELETAL: No cyanosis, +2 edema. Neuro: Intubated, sedated. Wakes up easily follows commands x4 A/P Assessment and Plan Acute respiratory failure s/p Septic shock. Anemia requiring transfusion Blood loss from GI bleed most likely from the esophageal cancer Hyperkalemia-resolved Acute kidney injury...improved Bilateral right more than left pleural effusion Lactic acidemia( resolved) Hyponatremia. SVT Elevated LFT's Leukocytosis. Possible pneumonia. History of coronary artery disease with stent placement. History of esophageal CA. Squamous cell carcinoma of the skin. Plan Neuro: On Fentanyl and Versed drips for sedation. Daily sedation vacation. Possible SBT Pulm: Continue with vent support and maintain saturations>92%. Bronchodilators, hydrocortisone 50mg Q6 SBT daily as michael. CT chest: Moderate bilateral pleural effusions with associated bibasilar airspace consolidation. Mild patchy airspace disease in the lingula and right middle lobe. Esophageal CA. CV: Off all pressors monitor HR and BP keep MAP>65mmHg Patient went into SVT 02/02 night given Adenosine and was cardioverted with 50J now in NSR HR 70's. Lactic acid cleared Continue with ASA, Plavix- Discussed with Dr. Tejeda Echo from 01/07 showed EF 60% to 65%. Give Bumex 2 mg IV x1 1ith 25 GM IV Albumin : Monitor renal function, intakes and outputs and avoid nephrotoxins. Renal is following- Cr is stable. Bumex 2 mg IV x1 1ith 25 GM IV Albumin GI: Unable to place OGT Monitor LFT's, US liver: Cirrhotic appearing liver with trace ascites in the pelvis. Gallbladder wall thickening and mild pericholecystic fluid without gallstone hepatitis profile : Hep C reactive ab on Protonix 40 mg IV Q12 for GI prophylaxis. CT abdomen/pelvis: no bowel infarction or perforation. bilateral lower lobe airspace consolidation. Diffusely prominent distal esophagus with distal esophageal stent in place. EGD By Dr. Tejeda 02/03 esophageal Ca in the mid esophagus friable oozing blood, esophageal stent in good position and covering most of the mass but there is overgrowth more proximal to the stent does not appear to be occluding the esophagus ID: Continue with abx (Levaquin, Cefepime, Micafungin, Vancomycin) ID is following Monitor for signs of infection which include fever and WBCs. Follow up on blood, sputum, urine cultures: NGTD Strep pneumoniae and Legionella urinary antigen negative. Heme: Monitor CBC, s/p transfusion 2units PRBC 02/02 overnight Hgb 9.1 this morning Oncology consulted ( patient known to him) patient is on chemo and XRT for his esophageal ca. Endo: SSI with Accu-Chek q. 4 hours for glycemic control. GI prophylaxis with Protonix 40 mg IV Q12 DVT prophylaxis with SCDs. No chemical prophylaxis due to anemia requiring blood transfusion Lines: Right Femoral Central line placed by ED 01/31, Right femoral Art Line placed 01/31. DC both today 02/04/17 Palliative care is following of care CCT 30 mins Bean Delarosa MD Feb 04, 2017 08:50
--- NOTE | 2017-02-04 10:36 | HHI.IDPN ---
Subjective Subjective Remarks Chart reviewed Patient known to me from his previous admissions He has known head and neck CA, and esophageal mass, S/P esophageal stent during his last hospitalization He was treated for high grade MSSA bacteremia, due to infected port Port removed and he completed Abx Rx with Ancef on Jan 15 He was also treated for PSAE PNA during his last admission He also had evidence of serositis and had pleural effusions and pericardial effusions that were both drained, C/S negative (but he was on Abx), cytology negative for malignancy He was D/C to SNF 01/30 and readmitted 01/31 Notes reviewed D/W RN Off pressors On the vent, awake and responding Remains in NSR To get thoracentesis Repeat echo 02/03 - EF prob 40% has AI and MR, no pericardial effusion, has pleural effusions Last echo Jan 07, no valvular abnormality, EF 60-65% Had EGD, has bleeding from esophageal mass, stent open and in position. WBC down to normal Platelets decreasing Creatinine stable LFT improving BC negative Sputum normal adama Antibiotics cefepime Lines Femoral A line and TLC Past Medical History Reviewed Allergies: Coded Allergies: penicillin G (Unverified Allergy, Mild, Hives, 12/30/16) Objective . Vital Signs Date Time Temp Pulse Resp B/P (MAP) Pulse Ox O2 Delivery O2 Flow Rate FiO2 02/04/17 08:19 100 35 02/04/17 08:00 40 02/04/17 04:00 40 02/04/17 04:00 97.2 68 18 108/44 (65) 100 02/04/17 03:50 100 40 02/04/17 00:00 40 02/04/17 00:00 97.0 73 18 111/45 (67) 100 02/03/17 23:43 100 40 02/03/17 20:00 40 02/03/17 20:00 97.3 74 18 105/43 (63) 100 Automatic Cuff 02/03/17 19:44 99 40 02/03/17 18:00 88 02/03/17 16:21 100 40 02/03/17 16:00 85 02/03/17 16:00 40 02/03/17 16:00 97.2 85 12 104/51 (68) 100 127/56 (79) 02/03/17 14:00 73 9/19/17 12:00 80 02/03/17 12:00 40 02/03/17 12:00 96.6 80 18 102/52 (69) 100 124/53 (76) 02/03/17 11:17 100 40 . Laboratory Tests Test 02/02/17 12:41 02/03/17 03:00 02/04/17 03:30 Hemoglobin 7.6 GM/DL 9.2 GM/DL 9.1 GM/DL Hematocrit 23.4 % 27.7 % 27.5 % White Blood Count 7.1 TH/MM3 5.8 TH/MM3 Red Blood Count 3.13 MIL/MM3 3.06 MIL/MM3 Mean Corpuscular Volume 88.4 FL 89.9 FL Mean Corpuscular Hemoglobin 29.3 PG 29.8 PG Mean Corpuscular Hemoglobin Concent 33.2 % 33.1 % Red Cell Distribution Width 17.7 % 17.3 % Platelet Count 106 TH/MM3 92 TH/MM3 Mean Platelet Volume 8.6 FL 9.4 FL Neutrophils (%) (Auto) 78.4 % 87.4 % Lymphocytes (%) (Auto) 13.4 % 7.9 % Monocytes (%) (Auto) 8.1 % 4.7 % Eosinophils (%) (Auto) 0.0 % 0.0 % Basophils (%) (Auto) 0.1 % 0.0 % Neutrophils # (Auto) 5.5 TH/MM3 5.1 TH/MM3 Lymphocytes # (Auto) 0.9 TH/MM3 0.5 TH/MM3 Monocytes # (Auto) 0.6 TH/MM3 0.3 TH/MM3 Eosinophils # (Auto) 0.0 TH/MM3 0.0 TH/MM3 Basophils # (Auto) 0.0 TH/MM3 0.0 TH/MM3 CBC Comment AUTO DIFF AUTO DIFF Differential Total Cells Counted 100 Neutrophils % (Manual) 81 % Band Neutrophils % 1 % Lymphocytes % 9 % Monocytes % 8 % Neutrophils # (Manual) 5.8 TH/MM3 Nucleated Red Blood Cells 4 /100 WBC Differential Comment FINAL DIFF MANUAL AUTO DIFF CONFIRMED Blastocytes 1 % Platelet Estimate LOW LOW Platelet Morphology Comment NORMAL NORMAL Ovalocytes 1+ Laboratory Tests Test 02/03/17 03:00 02/04/17 03:30 Blood Urea Nitrogen 51 MG/DL 56 MG/DL Creatinine 1.17 MG/DL 0.97 MG/DL Random Glucose 168 MG/DL 183 MG/DL Total Protein 5.7 GM/DL 5.2 GM/DL Albumin 2.0 GM/DL 1.9 GM/DL Calcium Level 7.8 MG/DL 7.8 MG/DL Phosphorus Level 3.6 MG/DL Magnesium Level 1.9 MG/DL Alkaline Phosphatase 82 U/L 72 U/L Aspartate Amino Transf (AST/SGOT) 186 U/L 87 U/L Alanine Aminotransferase (ALT/SGPT) 405 U/L 295 U/L Total Bilirubin 1.3 MG/DL 0.8 MG/DL Sodium Level 133 MEQ/L 135 MEQ/L Potassium Level 4.3 MEQ/L 4.0 MEQ/L Chloride Level 96 MEQ/L 99 MEQ/L Carbon Dioxide Level 29.2 MEQ/L 26.9 MEQ/L Anion Gap 8 MEQ/L 9 MEQ/L Estimat Glomerular Filtration Rate 64 ML/MIN 79 ML/MIN Total Creatine Kinase 52 U/L Troponin I 0.20 NG/ML Imaging Allergies Coded Allergies penicillin G (Unverified Allergy, Mild, Hives, 12/30/16) Chest X-Ray 02/02/17 0000 Signed Impressions: Service Date/Time: Thursday, February 02, 2017 07:55 - CONCLUSION: Slow interval improvement. Supportive apparatus good position. Everett Pollock MD FACR Liver Ultrasound 02/01/17 0000 Signed Impressions: Service Date/Time: Wednesday, February 01, 2017 16:32 - CONCLUSION: 1. Cirrhotic appearing liver with trace ascites in the pelvis. 2. Gallbladder wall thickening and mild pericholecystic fluid without gallstones. These findings are routinely seen in the setting of cirrhosis. If there is significant clinical concern regarding cholecystitis, HIDA scan may be performed. 3. Bilateral pleural effusions. Escobar Joinre MD Chest X-Ray 01/31/17 0828 Signed Impressions: Service Date/Time: Tuesday, January 31, 2017 10:37 - CONCLUSION: 1. ET tube in good position. 2. Clinically. 3. Bilateral pleural effusions with partial right. 4. Consolidation/atelectasis at the bases being worse on the right. Washington Chou MD Chest CT 01/31/17 0000 Signed Impressions: Service Date/Time: Tuesday, January 31, 2017 12:52 - CONCLUSION: 1. Moderate bilateral pleural effusions with associated bibasilar airspace consolidation. 2. Mild patchy airspace disease in the lingula and right middle lobe. 3. Diffuse soft tissue prominence of the mid to distal esophagus with esophageal stent in place consistent with history of esophageal CA. Administered contrast extends to the proximal esophagus. 4. ETT in good position. NGT just be in the GE junction. 5. Prominent coronary artery calcifications. Escobar Joiner MD Abdomen/Pelvis CT 01/31/17 0000 Signed Impressions: Service Date/Time: Tuesday, January 31, 2017 12:52 - CONCLUSION: 1. No definite CT findings to explain patient's lactic acidosis. Specifically, no evidence for bowel infarction or perforation. 2. Moderate bilateral pleural effusions with associated bilateral lower lobe airspace consolidation. 3. Diffusely prominent distal esophagus with distal esophageal stent in place. NGT courses through the stent with tip just beyond the GE junction. 4. Cirrhotic appearing liver without evidence for significant ascites or focal drainable fluid collection. Escobar Joiner MD Physical Exam GENERAL: Awake and alert, on the vent, not in distress SKIN: Warm and dry, no rash, edematous. No jaundice. NO embolic lesions HEAD: Atraumatic. Normocephalic. EYES: Pupils equal and round and reactive. NO petechia or hemorrhage. No scleral icterus. No injection or drainage. . ENT: Nose without bleeding or purulent drainage. Orally intubated NECK: Trachea midline. Supple, nontender. CARDIOVASCULAR: Regular rate and rhythm. Harsh systolic murmur at base RESPIRATORY/CHEST: Symmetric, respirations. Coarse BS bilaterally, decreased at bases GASTROINTESTINAL: Abdomen soft, non-tender, nondistended. . No guarding. Bowel sounds present. GENITOURINARY: Saxena catheter in place with yellow urine MUSCULOSKELETAL: Extremities without clubbing, cyanosis. Has edema of hands and feet, no calf tenderness. No mottling or clubbing. NEUROLOGICAL: Awake, tracking. PSYCHIATRIC: calm LINE: NO evidence of infection Assessment & Plan Remarks IMPRESSION Shock, sepsis, lactic acidosis, leukocytosis > 22K on presentation - his lactic acidemia improved - source? lung, UA with some pyuria Respiratory failure, ?PNA, plus CHF - sputum with normal adama Recent Rx for MSSA sepsis Recent Rx PSAE PPNA Known head and neck CA Esophageal CA, S/P stent Recent workup for pleural and pericardial effusions, no malignancy, (+) inflammation PCN allery but tolerated Cephalosporins PLAN Continue cefepime For thoracentesis today Weaning per CCM Follow echo report Monitor progress D/W Carola Dick MD Feb 04, 2017 10:36
--- NOTE | 2017-02-04 11:27 | ECHRPT ---
Indication: SVT CONCLUSIONS Moderately dilated left ventricle. The left ventricular systolic function is moderately reduced with an estimated ejection fraction in the range of 40-45%. There is global left ventricular dysfunction. Wall thickness is normal. This study was not technically sufficient to allow for evaluation of left ventricular diastolic func tion. The right ventricle is moderately dilated. The left atrial size is moderately dilated. The right atrial size is moderately dilated. No atrial level shunt is demonstrated by color flow Doppler interrogation. Mild thickening of the mitral valve leaflets. Moderate mitral valve regurgitation. Severe aortic valve regurgitation. No aortic valve stenosis. There is moderate tricuspid regurgitation. There is estimated mild pulmonary hypertension present (range 40-50 mmHg). Mild pulmonary valve regurgitation. The inferior vena cava is dilated. There is less than 50% respiratory change in dimension of the inferior vena cava (abnormal). A large left sided pleural effusion is noted. BP: 105 / 44 HR: Rhythm: MEASUREMENTS (Male / Female) Normal Values Technical Quality: 2D ECHO LV Diastolic Diameter PLAX 6.6 cm 4.2 - 5.9 / 3.9 - 5.3 cm LV Systolic Diameter PLAX 5.1 cm IVS Diastolic Thickness 1.0 cm 0.6 - 1.0 / 0.6 - 0.9 cm LVPW Diastolic Thickness 1.0 cm 0.6 - 1.0 / 0.6 - 0.9 cm LV Relative Wall Thickness 0.3 LVOT Diameter 1.9 cm Aortic Root Diameter 3.0 cm LA Systolic Diameter LX 4.4 cm 3.0 - 4.0 / 2.7 - 3.8 cm M-MODE AV Cusp Separation MM 2.2 cm DOPPLER AV Peak Velocity 186.0 cm/s AV Peak Gradient 13.8 mmHg AV Mean Gradient 7.0 mmHg AV Velocity Time Integral 32.7 cm AI Peak Velocity 437.0 cm/s AI Peak Gradient 76.4 mmHg AI Pressure Half Time 106.5 ms LVOT Peak Velocity 96.1 cm/s LVOT Peak Gradient 3.7 mmHg LVOT Velocity Time Integral 18.3 cm AV Area Cont Eq vti 1.6 cm AV Area Cont Eq pk 1.5 cm Mitral E Point Velocity 61.1 cm/s Mitral A Point Velocity 104.0 cm/s Mitral E to A Ratio 0.6 LV E' Lateral Velocity 7.6 cm/s Mitral E to LV E' Lateral Ratio 8.1 LV E' Septal Velocity 3.4 cm/s Mitral E to LV E' Septal Ratio 17.8 TR Peak Velocity 295.0 cm/s TR Peak Gradient 34.8 mmHg Right Atrial Pressure 10.0 mmHg Pulmonary Artery Systolic Pressu 44.8 mmHg Right Ventricular Systolic Press 44.8 mmHg PV Peak Velocity 54.3 cm/s PV Peak Gradient 1.2 mmHg FINDINGS LEFT VENTRICLE Moderately dilated left ventricle. The left ventricular systolic function is moderately reduced with an estimated ejection fraction in the range of 40-45%. There is global left ventricular dysfunction. Wall thickness is normal. This study was not technically sufficient to allow for evaluation of left ventricular diastolic func tion. RIGHT VENTRICLE The right ventricle is moderately dilated. LEFT ATRIUM The left atrial size is moderately dilated. RIGHT ATRIUM The right atrial size is moderately dilated. ATRIAL SEPTUM No atrial level shunt is demonstrated by color flow Doppler interrogation. AORTA The aortic root and proximal ascending aorta are normal in size on limited imaging. MITRAL VALVE Mild thickening of the mitral valve leaflets. Moderate mitral valve regurgitation. AORTIC VALVE Trileaflet aortic valve. Severe aortic valve regurgitation. No aortic valve stenosis. TRICUSPID VALVE Structurally normal tricuspid valve. There is moderate tricuspid regurgitation. There is estimated mild pulmonary hypertension present (range 40-50 mmHg). PULMONARY VALVE Mild pulmonary valve regurgitation. VESSELS The inferior vena cava is dilated. There is less than 50% respiratory change in dimension of the inferior vena cava (abnormal). PERICARDIUM A large left sided pleural effusion is noted. No pericardial effusion. Miguel Murillo MD (Electronically Signed) Final Date:04 February 2017 11:26
--- NOTE | 2017-02-04 13:35 | HHI.GIFU ---
Subjective Remarks Resting in bed, sedated on vent, no distress. Possible drainage of pleural effusion and then possible extubation. Palliative care meeting with family today. No active bleeding at this time. (Nga Ramos) Objective Vitals I&O Vital Signs Date Time Temp Pulse Resp B/P (MAP) Pulse Ox O2 Delivery O2 Flow Rate FiO2 02/04/17 12:56 96 35 02/04/17 10:00 88 02/04/17 08:19 100 35 02/04/17 08:00 70 02/04/17 08:00 40 02/04/17 08:00 97.0 70 18 110/45 (66) 100 89/54 (66) 02/04/17 04:00 40 02/04/17 04:00 97.2 68 18 108/44 (65) 100 02/04/17 03:50 100 40 02/04/17 00:00 40 02/04/17 00:00 97.0 73 18 111/45 (67) 100 02/03/17 23:43 100 40 02/03/17 20:00 40 02/03/17 20:00 97.3 74 18 105/43 (63) 100 Automatic Cuff 02/03/17 19:44 99 40 02/03/17 18:00 88 02/03/17 16:21 100 40 02/03/17 16:00 85 02/03/17 16:00 40 02/03/17 16:00 97.2 85 12 104/51 (68) 100 127/56 (79) 02/03/17 14:00 73 I/O 02/03/17 02/03/17 02/03/17 02/04/17 02/04/17 02/04/17 07:00 15:00 23:00 07:00 15:00 23:00 Intake Total 1050 ml 1150 ml 100 ml Output Total 600 ml 425 ml 500 ml Balance 450 ml 725 ml -400 ml Intake Oral 0 ml 0 ml IV Total 300 ml 1150 ml 100 ml Tube Feeding 0 ml 0 ml Packed Cells 750 ml Output Urine Total 400 ml 425 ml 500 ml Gastric Drainage Total 200 ml # Bowel Movements 0 0 Laboratory Laboratory Tests Test 02/03/17 14:20 02/04/17 03:30 Vancomycin Level Trough 13.0 White Blood Count 5.8 Red Blood Count 3.06 Hemoglobin 9.1 Hematocrit 27.5 Mean Corpuscular Volume 89.9 Mean Corpuscular Hemoglobin 29.8 Mean Corpuscular Hemoglobin Concent 33.1 Red Cell Distribution Width 17.3 Platelet Count 92 Mean Platelet Volume 9.4 Neutrophils (%) (Auto) 87.4 Lymphocytes (%) (Auto) 7.9 Monocytes (%) (Auto) 4.7 Eosinophils (%) (Auto) 0.0 Basophils (%) (Auto) 0.0 Neutrophils # (Auto) 5.1 Lymphocytes # (Auto) 0.5 Monocytes # (Auto) 0.3 Eosinophils # (Auto) 0.0 Basophils # (Auto) 0.0 CBC Comment AUTO DIFF Differential Comment AUTO DIFF CONFIRMED Platelet Estimate LOW Platelet Morphology Comment NORMAL Blood Urea Nitrogen 56 Creatinine 0.97 Random Glucose 183 Total Protein 5.2 Albumin 1.9 Calcium Level 7.8 Alkaline Phosphatase 72 Aspartate Amino Transf (AST/SGOT) 87 Alanine Aminotransferase (ALT/SGPT) 295 Total Bilirubin 0.8 Sodium Level 135 Potassium Level 4.0 Chloride Level 99 Carbon Dioxide Level 26.9 Anion Gap 9 Estimat Glomerular Filtration Rate 79 Date/Time Source Procedure Growth Status 01/31/17 08:35 Blood Peripheral Aerobic Blood Culture - Preliminary NO GROWTH IN 4 DAYS Resulted 01/31/17 08:35 Blood Peripheral Anaerobic Blood Culture - Preliminary NO GROWTH IN 4 DAYS Resulted 01/31/17 21:40 Sputum Endotracheal Gram Stain - Final Complete 01/31/17 21:40 Sputum Endotracheal Sputum Culture - Final HEAVY GROWTH NORMAL RESPIRATORY EDE Complete 01/31/17 13:35 Urine Catheterized Urine Legionella Antigen - Final PRESUMPTIVE NEGATIVE FOR LEGIONELLA P... Complete 01/31/17 13:35 Urine Catheterized Urine Streptococcus pneumoniae Antigen (M - Final PRESUMPTIVE NEGATIVE FOR STREPTOCOCCU... Complete Imaging Last Impressions Chest X-Ray 02/04/17 0000 Signed Impressions: Service Date/Time: Saturday, February 04, 2017 04:31 - CONCLUSION: Unchanged exam with bilateral pleural effusions and bibasilar pulmonary infiltrates. Kulwant Cowart Jr., MD Liver Ultrasound 02/01/17 0000 Signed Impressions: Service Date/Time: Wednesday, February 01, 2017 16:32 - CONCLUSION: 1. Cirrhotic appearing liver with trace ascites in the pelvis. 2. Gallbladder wall thickening and mild pericholecystic fluid without gallstones. These findings are routinely seen in the setting of cirrhosis. If there is significant clinical concern regarding cholecystitis, HIDA scan may be performed. 3. Bilateral pleural effusions. Escobar Joiner MD Chest CT 01/31/17 0000 Signed Impressions: Service Date/Time: Tuesday, January 31, 2017 12:52 - CONCLUSION: 1. Moderate bilateral pleural effusions with associated bibasilar airspace consolidation. 2. Mild patchy airspace disease in the lingula and right middle lobe. 3. Diffuse soft tissue prominence of the mid to distal esophagus with esophageal stent in place consistent with history of esophageal CA. Administered contrast extends to the proximal esophagus. 4. ETT in good position. NGT just be in the GE junction. 5. Prominent coronary artery calcifications. Escobar Joiner MD Abdomen/Pelvis CT 01/31/17 0000 Signed Impressions: Service Date/Time: Tuesday, January 31, 2017 12:52 - CONCLUSION: 1. No definite CT findings to explain patient's lactic acidosis. Specifically, no evidence for bowel infarction or perforation. 2. Moderate bilateral pleural effusions with associated bilateral lower lobe airspace consolidation. 3. Diffusely prominent distal esophagus with distal esophageal stent in place. NGT courses through the stent with tip just beyond the GE junction. 4. Cirrhotic appearing liver without evidence for significant ascites or focal drainable fluid collection. Escobar Joiner MD Physical Exam HEENT: Normocephalic; atraumatic; no jaundice. CHEST: Resp even/unlabored. OETT to vent. Diminished CARDIAC: RRR ABDOMEN: Soft, nondistended, nontender; hepatosplenomegaly; bowel sounds are present in all four quadrants. EXTREMITIES:Generalized edema, improved [employer]ESSION[employer] HEALTHCARE REPRESENTATIVE: Sedated on vent (Nga Ramos) Assessment and Plan Plan ASSESSMENT: - Upper GIB. S/P EGD (02/04/17)----> esophageal mass in mid esophagus friable with oozing blood when touched, esophageal stent in good position, there is some overgrowth more proximal to the stent, but at this point does not seem to be occluding the stent, is a source of bleeding, however, little in the way of endoscopic therapy that can be performed at this point. Not actively bleeding at this time. S/P 3 units PRBC. .5. Protonix with BID dosing. - Anemia, likely multifactorial. S/P 3 units PRBC. HH 9.1.5. Protonix with BID dosing. - Poor po intake, Dysphagia/Odynophagia. Barium Swallow X-Ray 12/20/16--1. The distal half of the esophagus demonstrates irregular luminal narrowing consistent with the patient's history of esophageal adenocarcinoma. 2. Mild dilatation of the esophagus immediately proximal to the esophageal mass. However, there are no signs of obstruction. 3. Small hiatal hernia. S/P EUS with esophageal stent placement --> esophageal ca T3 N0 Mx, large friable mass with oozing, food and debris in esophagus, lengthy process to clean out. EGD as above. - Esophageal cancer. PET Scan (10/28/16)----> negative examination of the head and neck, findings characteristic of esophageal neoplasm. S/P EGD/Colonoscopy (11/20/16)----> There was a long stricture i the mid esophagus and distal esophagus, multiple biopsies were performed, the mucosa of the stomach appeared normal, duodenal mucosa showed no abnormalities in the entire duodenum, retroflexed views revealed a small hiatal hernia; nine sessile polyps ranging from 4-12 mm in size were found at the cecum, in the ascending colon, descending colon, sigmoid colon, and rectum; polypectomy was performed using snare cautery, moderate diverticulosis was noted in the left colon, retroflexed views revealed internal grade I hemorrhoids, a digital rectal exam was performed and revealed no abnormalities of the anus. Pathology revealed invasive adenocarcinoma- distal esophagus, descending colon polyp and rectosigmoid polyp both benign hyperplastic colonic polyp, no adenomatous change or malignancy is seen. S/P XRT Simulation. Plan is for erbitux, radiation as outpatient. Pt reports that he has not started tx yet. Palliative care - Elevated LFTs, Liver cirrhosis. Abdomen MRI 12/17/16--1. No acute finding is identified to explain the abdominal pain. 2. Stable thickening of the distal esophagus. There is a single mildly enlarged left gastric lymph node measuring 12 x 10 mm. 3. Moderate sized bilateral pleural effusions, left larger than right, with associated compressive atelectasis. Unclear if he has hx of cirrhosis. There is mention of hx of HCV in EMR, but patient has had undetectable viral load as far back as 2001. Pt does report he has a history of HCV and was successfully treated with Interferon/ribavirin in the past. Iron saturation 4.1%, Ferritin 124, Hepatitis C antibodies (+), viral load undetectable, TERRIE negative, ASMA < 20.0, AMA neg, Ceruloplasmin 40 and alpha 1 antitrypsin 298. Pt does not currently drink, but states that he was a heavy drinker in the past. US Liver (02/01/17)--> Cirrhotic appearing liver with trace ascites in the pelivs. GB wall thickening and mild pericholecystic fluid without gallstones. These findings are routinely seen in the setting of cirrhosis. If there is significant clinical concern regarding cholecystitis, HIDA scan may be performed, bilateral pleural effusions. Pt with increase in LFTs since last hospitalization, but also went into PEA arrest, so it is possible some of this is shocked liver. He does have some gb wall thickening and mild pericholecystic fluid, but he is completely nontender on abdominal exam. Improving, T. Bili 0.8, AST 87, ALT 295, Alk Phopsh 72. - S/P PEA Arrest (02/01/17). On vasopressin. - Respiratory failure, COPD, Bilateral pleural effusions. Vent per [facility] - Leukocytosis. Micafungin, Cefepime, Flagyl - Thrombocytopenia/Coagulopathy. Plt 92 - CLARA with electrolyte abnormalities, Hyponatremia. Improved. 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 S/P mohs surgery by a crude unit operator in September of 2015 and shortly after this, developed a mass near the surgical area. S/P at [facility] with Dr. Valdovinos in June of 2016----> underwent extensive head and neck surgery involving a parotidectomy and radical neck dissection in September of 2016. Because of high risk features of local recurrence with perineural invasion and positive margins, it was recommended that he have concurrent chemoradiation therapy. He was evaluated by Dr. Cross for radiation and seen by Dr. Bell for oncology. PET Scan ()---> negative examination of the head and neck, findings characteristic of esophageal neoplasm. Direct visualization is recommended. - Hx HTN, hyperlipidemia, CAD, DM per attending. PLAN: - NPO - Protonix 40mg IV BID - Monitor labs - Transfuse as necessary - Supportive care - Avoid anticoagulation. - CCM following - Palliative care following - Further recommendations to follow based on results of above - Pt seen and examined by Dr. Tejeda and myself and this note is written on his behalf (Nga Ramos) Physician Comments Patient seen and examined Agree with above Continue with current supportive care Monitor labs and transfuse as needed Patient with probable poor prognosis due to the multiple comorbidities and the recurrence of malignancy I will defer to oncology and the ICU team Not much to add from a GI perspective we will sign off (Ortiz Tejeda MD) Nga Ramos Feb 04, 2017 13:35 Ortiz Tejeda MD Feb 04, 2017 15:50
--- NOTE | 2017-02-04 13:42 | PD.CARD.PN ---
Subjective Subjective Remarks no overnight events no tachy-bradyarrhythmias Objective Medications Current Medications Medications (Trade) Dose Ordered Sig/Geovanny Route Start Time Stop Time Status Last Admin Miscellaneous Information 1 [id number] XX 01/31/17 10:00 (Chlorhexidine 2% Cloth) 3 pack Taper DAILY@04 TOP 02/01/17 04:00 01/28/18 03:59 02/02/17 03:27 (Chlorhexidine 2% Cloth) 3 pack UNSCH PRN TOP 01/31/17 10:00 (Rere-Colace) 1 tab BID PO 01/31/17 21:00 02/04/17 08:31 (Milk Of Magnesia Liq) 30 ml Q12H PRN PO 01/31/17 10:00 (Senokot) 17.2 mg Q12H PRN PO 01/31/17 10:00 (Dulcolax Supp) 10 mg DAILY PRN RECTAL 01/31/17 10:00 (Lactulose Liq) 30 ml DAILY PRN PO 01/31/17 10:00 (D50w (Vial) Inj) 50 ml UNSCH PRN IV 01/31/17 10:00 (Glucagon Inj) 1 mg UNSCH PRN OTHER 01/31/17 10:00 (NovoLIN R SUPPLEMENTAL SCALE) 1 Q4H SQ 01/31/17 10:00 02/04/17 10:13 (Plavix) 75 mg DAILY PO 01/31/17 11:00 02/04/17 08:32 Vasopressin 40 units/Dextrose 100 ml @ 6 mls/hr [id number] IV 01/31/17 10:40 02/01/17 18:51 Fentanyl Citrate 250 ml @ 5 mls/hr TITRATE PRN IV 01/31/17 12:45 02/03/17 20:50 Norepinephrine Bitartrate 250 ml @ 7.5 mls/hr TITRATE PRN IV 01/31/17 16:00 02/02/17 02:40 (Brethine Inj) 1 mg UNSCH PRN SQ 01/31/17 16:00 Midazolam HCl 100 ml @ 2 mls/hr TITRATE PRN IV 01/31/17 16:00 02/03/17 18:51 Propofol 100 ml @ 3 mls/hr TITRATE PRN IV 01/31/17 17:45 01/31/17 17:40 Propofol 100 ml @ 3 mls/hr TITRATE PRN IV 01/31/17 18:00 01/31/17 19:59 Cefepime HCl 2000 mg/Sodium Chloride 100 ml @ 200 mls/hr Q12H IV 02/01/17 02:00 02/04/17 01:38 (SoluCORTEF INJ) 50 mg Q6HR IV PUSH 02/01/17 12:00 02/04/17 12:48 (Protonix Inj) 40 mg Q12HR IV PUSH 02/02/17 21:00 02/04/17 08:31 (Santyl Oint) 1 applic DAILY TOPICAL 02/03/17 09:00 02/04/17 08:30 (Ecotrin Ec) 81 mg DAILY PO 02/04/17 09:00 02/04/17 08:31 Dextrose/Sodium Chloride 1,000 ml @ 50 mls/hr Q20H IV 02/03/17 18:00 02/03/17 20:49 Vital Signs / I&O Vital Signs Date Time Temp Pulse Resp B/P (MAP) Pulse Ox O2 Delivery O2 Flow Rate FiO2 02/04/17 12:56 96 35 02/04/17 10:00 88 02/04/17 08:19 100 35 02/04/17 08:00 70 02/04/17 08:00 40 02/04/17 08:00 97.0 70 18 110/45 (66) 100 89/54 (66) 02/04/17 04:00 40 02/04/17 04:00 97.2 68 18 108/44 (65) 100 02/04/17 03:50 100 40 02/04/17 00:00 40 02/04/17 00:00 97.0 73 18 111/45 (67) 100 02/03/17 23:43 100 40 02/03/17 20:00 40 02/03/17 20:00 97.3 74 18 105/43 (63) 100 Automatic Cuff 02/03/17 19:44 99 40 02/03/17 18:00 88 02/03/17 16:21 100 40 02/03/17 16:00 85 02/03/17 16:00 40 02/03/17 16:00 97.2 85 12 104/51 (68) 100 127/56 (79) 02/03/17 14:00 73 I/O 02/03/17 02/03/17 02/03/17 02/04/17 02/04/17 02/04/17 07:00 15:00 23:00 07:00 15:00 23:00 Intake Total 1050 ml 1150 ml 100 ml Output Total 600 ml 425 ml 500 ml Balance 450 ml 725 ml -400 ml Intake Oral 0 ml 0 ml IV Total 300 ml 1150 ml 100 ml Tube Feeding 0 ml 0 ml Packed Cells 750 ml Output Urine Total 400 ml 425 ml 500 ml Gastric Drainage Total 200 ml # Bowel Movements 0 0 Physical Exam GENERAL: Sedated, intubated SKIN: Warm and dry. HEAD: Normocephalic. EYES: No scleral icterus. No injection or drainage. NECK: Supple, trachea midline. No JVD or lymphadenopathy. CARDIOVASCULAR: Regular rate and rhythm without murmurs, gallops, or rubs. RESPIRATORY: Breath sounds equal bilaterally. No accessory muscle use. GASTROINTESTINAL: Abdomen soft, non-tender, nondistended. EXTREMITIES: No cyanosis, or edema. Laboratory Laboratory Tests Test 02/03/17 14:20 02/04/17 03:30 Vancomycin Level Trough 13.0 MCG/ML White Blood Count 5.8 TH/MM3 Red Blood Count 3.06 MIL/MM3 Hemoglobin 9.1 GM/DL Hematocrit 27.5 % Mean Corpuscular Volume 89.9 FL Mean Corpuscular Hemoglobin 29.8 PG Mean Corpuscular Hemoglobin Concent 33.1 % Red Cell Distribution Width 17.3 % Platelet Count 92 TH/MM3 Mean Platelet Volume 9.4 FL Neutrophils (%) (Auto) 87.4 % Lymphocytes (%) (Auto) 7.9 % Monocytes (%) (Auto) 4.7 % Eosinophils (%) (Auto) 0.0 % Basophils (%) (Auto) 0.0 % Neutrophils # (Auto) 5.1 TH/MM3 Lymphocytes # (Auto) 0.5 TH/MM3 Monocytes # (Auto) 0.3 TH/MM3 Eosinophils # (Auto) 0.0 TH/MM3 Basophils # (Auto) 0.0 TH/MM3 CBC Comment AUTO DIFF Differential Comment AUTO DIFF CONFIRMED Platelet Estimate LOW Platelet Morphology Comment NORMAL Blood Urea Nitrogen 56 MG/DL Creatinine 0.97 MG/DL Random Glucose 183 MG/DL Total Protein 5.2 GM/DL Albumin 1.9 GM/DL Calcium Level 7.8 MG/DL Alkaline Phosphatase 72 U/L Aspartate Amino Transf (AST/SGOT) 87 U/L Alanine Aminotransferase (ALT/SGPT) 295 U/L Total Bilirubin 0.8 MG/DL Sodium Level 135 MEQ/L Potassium Level 4.0 MEQ/L Chloride Level 99 MEQ/L Carbon Dioxide Level 26.9 MEQ/L Anion Gap 9 MEQ/L Estimat Glomerular Filtration Rate 79 ML/MIN Imaging Last Impressions Chest X-Ray 02/04/17 0000 Signed Impressions: Service Date/Time: Saturday, February 04, 2017 04:31 - CONCLUSION: Unchanged exam with bilateral pleural effusions and bibasilar pulmonary infiltrates. Kulwant Cowart Jr., MD Liver Ultrasound 02/01/17 0000 Signed Impressions: Service Date/Time: Wednesday, February 01, 2017 16:32 - CONCLUSION: 1. Cirrhotic appearing liver with trace ascites in the pelvis. 2. Gallbladder wall thickening and mild pericholecystic fluid without gallstones. These findings are routinely seen in the setting of cirrhosis. If there is significant clinical concern regarding cholecystitis, HIDA scan may be performed. 3. Bilateral pleural effusions. Escobar Joiner MD Chest CT 01/31/17 0000 Signed Impressions: Service Date/Time: Tuesday, January 31, 2017 12:52 - CONCLUSION: 1. Moderate bilateral pleural effusions with associated bibasilar airspace consolidation. 2. Mild patchy airspace disease in the lingula and right middle lobe. 3. Diffuse soft tissue prominence of the mid to distal esophagus with esophageal stent in place consistent with history of esophageal CA. Administered contrast extends to the proximal esophagus. 4. ETT in good position. NGT just be in the GE junction. 5. Prominent coronary artery calcifications. Escobar Joiner MD Abdomen/Pelvis CT 01/31/17 0000 Signed Impressions: Service Date/Time: Tuesday, January 31, 2017 12:52 - CONCLUSION: 1. No definite CT findings to explain patient's lactic acidosis. Specifically, no evidence for bowel infarction or perforation. 2. Moderate bilateral pleural effusions with associated bilateral lower lobe airspace consolidation. 3. Diffusely prominent distal esophagus with distal esophageal stent in place. NGT courses through the stent with tip just beyond the GE junction. 4. Cirrhotic appearing liver without evidence for significant ascites or focal drainable fluid collection. Escobar Joiner MD Assessment and Plan Problem List: (1) Rapid atrial fibrillation ICD Codes: I48.91 - Unspecified atrial fibrillation Status: Acute Plan: Off all pressors monitor HR and BP Continue with aggressive management of CAD Cont DAPT if no contraindications Gentle IV diuresis Echo results noted. Severe AI, which is new. ?Chronicity. Vegetation. Not candidate for PAM given esophageal mass. CT surgery consult Strict I&O (2) Hypertension ICD Codes: I10 - Hypertension Status: Acute (3) Bacteremia due to Gram-positive bacteria ICD Codes: R78.81 - Bacteremia Status: Acute (4) Thrombocytopenia ICD Codes: D69.6 - Thrombocytopenia, unspecified Status: Acute (5) Debilitated patient ICD Codes: R53.81 - Other malaise Status: Acute (6) Sepsis ICD Codes: A41.9 - Sepsis, unspecified organism Status: Resolved (7) Diabetes mellitus ICD Codes: E11.9 - Diabetes mellitus Status: Acute (8) Esophageal mass ICD Codes: K22.9 - Disease of esophagus, unspecified Status: Acute (9) Esophageal carcinoma ICD Codes: C15.9 - Malignant neoplasm of esophagus, unspecified Status: Acute (10) Shortness of breath ICD Codes: R06.02 - Shortness of breath Status: Acute Miguel Murillo MD Feb 04, 2017 13:42
--- NOTE | 2017-02-04 13:51 | HHI.HCPN ---
Reason for visit a. To assist with evaluation and management of symptoms including: Shortness of breath, Debility. b. To assist medical decision maker(s) with: better understanding of current medical conditions; weighing benefits/burdens of medical treatment options; making medical treatment decisions. . 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 Patient presented to the ED via EMS 02/02/17 from a [facility] for shortness of breath and weakness. Patient sustained PEA arrest, underwent CPR and ACLS drugs with ROS, subsequently intubated and placed on mechanical ventilation. Patient was recently discharged from the [place] [facility] on 01/30/17 after hospitalization x 2 months. During hospitalization, his clinical course was complicated by NSTEMI, patient underwent PCI with bare metal stents on 11/30/16. Clinical course further complicated by persistent fever, MSSA bacteremia, worsening sepsis, A. fib with RVR and persistent respiratory failure, intubation and mechanical ventilation x3 times, pericardial effusion requiring pericardiocentesis and pleural effusion with chest tube placement. Palliative care consulted for further clarifications of goals of care given overall poor prognosis. Patient seen in ICU, remains endotracheally intubated on mechanical ventilation. 35% FiO2, oxygen saturation in the high 90s. Chest x-ray today revealing bilateral pleural effusions and bibasilar pulmonary infiltrates. Family providing consent for chest tube placement. Patient sedated, not following commands during my visit. Afebrile, stable hemodynamically. Laboratory workup today revealing WBC 5.8, Hgb 9.1, platelet count 92. BUN/ creatinine 56/0.7. Albumin 1.9. Cardiology, Dr. Murillo consulted 02/03/17 for evaluationSVT status cardioversion/PEA arrest. No invasive cardiac interventions recommended given his recent history of GI bleed. Patient underwent EGD yesterday. As per GI, "esophageal mass in the mid esophagus this was friable and when touched was oozing blood also noted was an esophageal stent this was in good position and covering most of the mass". Esophageal mass certainly source of bleeding. Oncology, Dr. Bell consulted given patient' s head and neck malignancy as well as esophageal cancer. Unable treat cancer at this time given patient's critical illness. Case discussed with Dr. Delarosa and bedside RN Pinky. . Family/friend interactions Telephone conversation with patient's daughter Mena La, bedside conversation with patient's significant other Luly Plunkett. Medical update provided. Discussed again patient's critical status and overall poor prognosis given multiple chronic ongoing comorbidities, recent prolonged hospitalization x 2 months with multiple complications, malignancy, malnutrition, most recent PEA arrest and profound physical deconditioning. Patient's family electing to continue full aggressive care with the hopes of medical extubation and allow patient to participate in medical decision-making. . Advance Directives Living Will: Copy in medical record Health Care Surrogate: Copy in medical record Durable Power of Stemhole Borer: Never completed Advance Directive Specifics Date completed: HCS completed 12/25/16 Living Will completed 01/07/17. . Health Care Surrogate(s): This information of healthcare surrogate and filed. Patient designated his daughter Mena La AND girlfriend Luly Bautista as HCS. . Documented care wishes: Patient electing that life/prolonging procedures be withheld or withdrawn in the setting of persistent vegetative state. Patient electing no tracheostomy. . Significant change in goals: Full code. Family wishing to continue full aggressive care with the hopes of medical extubation and allow patient to participate in medical decision-making. . Objective Vital Signs Date Time Temp Pulse Resp B/P (MAP) Pulse Ox O2 Delivery O2 Flow Rate FiO2 02/04/17 12:56 96 35 02/04/17 10:00 88 02/04/17 08:19 100 35 02/04/17 08:00 70 02/04/17 08:00 40 02/04/17 08:00 97.0 70 18 110/45 (66) 100 89/54 (66) 02/04/17 04:00 40 02/04/17 04:00 97.2 68 18 108/44 (65) 100 02/04/17 03:50 100 40 02/04/17 00:00 40 02/04/17 00:00 97.0 73 18 111/45 (67) 100 02/03/17 23:43 100 40 02/03/17 20:00 40 02/03/17 20:00 97.3 74 18 105/43 (63) 100 Automatic Cuff 02/03/17 19:44 99 40 02/03/17 18:00 88 02/03/17 16:21 100 40 02/03/17 16:00 85 02/03/17 16:00 40 02/03/17 16:00 97.2 85 12 104/51 (68) 100 127/56 (79) 02/03/17 14:00 73 Intake & Output 02/04/17 02/04/17 07:00 19:00 Intake Total 1250 ml Output Total 500 ml Balance 750 ml Intake Oral 0 ml IV Total 1250 ml Tube Feeding 0 ml Output Urine Total 500 ml # Bowel Movements 0 Physical Exam CONSTITUTIONAL/GENERAL: This is an ill looking male, who appears older than stated age in no acute distress. Intubated on mechanical ventilation, sedated. TUBES/LINES/DRAINS: ETT, NGT, PIV, Right femoral central line; Right femoral A line, PIVs, SCDs SKIN: No jaundice, rashes, or lesions. Ecchymoses on upper extremities. Skin tear to left lower extremity. Skin temperature appropriate. Not diaphoretic. HEAD: Atraumatic. Normocephalic. EYES: Pupils equal and round and reactive. No scleral icterus. No injection or drainage. ENT: Nose without bleeding or purulent drainage. Moist oral mucosa. NECK: Trachea midline. Supple, nontender. CARDIOVASCULAR: Regular rate and rhythm.Systolic murmur . No JVD. Peripheral pulses symmetric. RESPIRATORY/CHEST: Symmetric, unlabored respirations. Coarse breath sounds. GASTROINTESTINAL: Abdomen soft, large, round. Active bowel sounds. GENITOURINARY: Without palpable bladder distension. Saxena catheter in place. MUSCULOSKELETAL: Extremities without clubbing, cyanosis. Edema to all 4 extremities. NEUROLOGICAL: Sedated. Not following commands. PSYCHIATRIC: Unable to assess secondary to clinical condition, intubated, sedated. Appears calm. . Diagnostic Tests Laboratory Laboratory Tests Test 02/01/17 14:30 02/02/17 03:45 02/02/17 12:41 02/03/17 03:00 Potassium Level 5.1 MEQ/L (3.5-5.1) 4.3 MEQ/L (3.5-5.1) 4.3 MEQ/L (3.5-5.1) White Blood Count 11.2 TH/MM3 (4.0-11.0) 7.1 TH/MM3 (4.0-11.0) Red Blood Count 2.65 MIL/MM3 (4.50-5.90) 3.13 MIL/MM3 (4.50-5.90) Hemoglobin 7.6 GM/DL (13.0-17.0) 7.6 GM/DL (13.0-17.0) 9.2 GM/DL (13.0-17.0) Hematocrit 23.6 % (39.0-51.0) 23.4 % (39.0-51.0) 27.7 % (39.0-51.0) Mean Corpuscular Volume 89.1 FL (80.0-100.0) 88.4 FL (80.0-100.0) Mean Corpuscular Hemoglobin 28.8 PG (27.0-34.0) 29.3 PG (27.0-34.0) Mean Corpuscular Hemoglobin Concent 32.3 % (32.0-36.0) 33.2 % (32.0-36.0) Red Cell Distribution Width 18.0 % (11.6-17.2) 17.7 % (11.6-17.2) Platelet Count 145 TH/MM3 (150-450) 106 TH/MM3 (150-450) Mean Platelet Volume 8.7 FL (7.0-11.0) 8.6 FL (7.0-11.0) Neutrophils (%) (Auto) 89.6 % (16.0-70.0) 78.4 % (16.0-70.0) Lymphocytes (%) (Auto) 5.7 % (9.0-44.0) 13.4 % (9.0-44.0) Monocytes (%) (Auto) 4.6 % (0.0-8.0) 8.1 % (0.0-8.0) Eosinophils (%) (Auto) 0.0 % (0.0-4.0) 0.0 % (0.0-4.0) Basophils (%) (Auto) 0.1 % (0.0-2.0) 0.1 % (0.0-2.0) Neutrophils # (Auto) 10.0 TH/MM3 (1.8-7.7) 5.5 TH/MM3 (1.8-7.7) Lymphocytes # (Auto) 0.6 TH/MM3 (1.0-4.8) 0.9 TH/MM3 (1.0-4.8) Monocytes # (Auto) 0.5 TH/MM3 (0-0.9) 0.6 TH/MM3 (0-0.9) Eosinophils # (Auto) 0.0 TH/MM3 (0-0.4) 0.0 TH/MM3 (0-0.4) Basophils # (Auto) 0.0 TH/MM3 (0-0.2) 0.0 TH/MM3 (0-0.2) CBC Comment DIFF FINAL AUTO DIFF Differential Comment FINAL DIFF MANUAL Blood Urea Nitrogen 42 MG/DL (7-18) 51 MG/DL (7-18) Creatinine 1.17 MG/DL (0.60-1.30) 1.17 MG/DL (0.60-1.30) Random Glucose 191 MG/DL (74-106) 168 MG/DL (74-106) Total Protein 5.9 GM/DL (6.4-8.2) 5.7 GM/DL (6.4-8.2) Albumin 2.1 GM/DL (3.4-5.0) 2.0 GM/DL (3.4-5.0) Calcium Level 7.4 MG/DL (8.5-10.1) 7.8 MG/DL (8.5-10.1) Phosphorus Level 3.5 MG/DL (2.5-4.9) 3.6 MG/DL (2.5-4.9) Magnesium Level 1.8 MG/DL (1.5-2.5) 1.9 MG/DL (1.5-2.5) Alkaline Phosphatase 82 U/L (45-117) 82 U/L (45-117) Aspartate Amino Transf (AST/SGOT) 342 U/L (15-37) 186 U/L (15-37) Alanine Aminotransferase (ALT/SGPT) 474 U/L (12-78) 405 U/L (12-78) Total Bilirubin 0.5 MG/DL (0.2-1.0) 1.3 MG/DL (0.2-1.0) Sodium Level 129 MEQ/L (136-145) 133 MEQ/L (136-145) Chloride Level 92 MEQ/L (98-107) 96 MEQ/L (98-107) Carbon Dioxide Level 29.1 MEQ/L (21.0-32.0) 29.2 MEQ/L (21.0-32.0) Anion Gap 8 MEQ/L (5-15) 8 MEQ/L (5-15) Estimat Glomerular Filtration Rate 64 ML/MIN (>89) 64 ML/MIN (>89) Protein Corrected Calcium 8.1 MG/DL (8.5-10.1) Random Cortisol 84.8 MCG/DL Hepatitis A IgM Antibody NEGATIVE (NEGATIVE) Hepatitis B Surface Antigen NEGATIVE (NEGATIVE) Hepatitis B Core IgM Antibody NEGATIVE (NEGATIVE) Hepatitis C Antibody REACTIVE (NEGATIVE) Differential Total Cells Counted 100 Neutrophils % (Manual) 81 % (16-70) Band Neutrophils % 1 % (0-6) Lymphocytes % 9 % (9-44) Monocytes % 8 % (0-8) Neutrophils # (Manual) 5.8 TH/MM3 (1.8-7.7) Nucleated Red Blood Cells 4 /100 WBC (0-0) Blastocytes 1 % (0-0) Platelet Estimate LOW (NORMAL) Platelet Morphology Comment NORMAL (NORMAL) Ovalocytes 1+ (NORMAL) Total Creatine Kinase 52 U/L (39-308) Troponin I 0.20 NG/ML (0.02-0.05) Test 02/03/17 14:20 02/04/17 03:30 Vancomycin Level Trough 13.0 MCG/ML (5.0-10.0) White Blood Count 5.8 TH/MM3 (4.0-11.0) Red Blood Count 3.06 MIL/MM3 (4.50-5.90) Hemoglobin 9.1 GM/DL (13.0-17.0) Hematocrit 27.5 % (39.0-51.0) Mean Corpuscular Volume 89.9 FL (80.0-100.0) Mean Corpuscular Hemoglobin 29.8 PG (27.0-34.0) Mean Corpuscular Hemoglobin Concent 33.1 % (32.0-36.0) Red Cell Distribution Width 17.3 % (11.6-17.2) Platelet Count 92 TH/MM3 (150-450) Mean Platelet Volume 9.4 FL (7.0-11.0) Neutrophils (%) (Auto) 87.4 % (16.0-70.0) Lymphocytes (%) (Auto) 7.9 % (9.0-44.0) Monocytes (%) (Auto) 4.7 % (0.0-8.0) Eosinophils (%) (Auto) 0.0 % (0.0-4.0) Basophils (%) (Auto) 0.0 % (0.0-2.0) Neutrophils # (Auto) 5.1 TH/MM3 (1.8-7.7) Lymphocytes # (Auto) 0.5 TH/MM3 (1.0-4.8) Monocytes # (Auto) 0.3 TH/MM3 (0-0.9) Eosinophils # (Auto) 0.0 TH/MM3 (0-0.4) Basophils # (Auto) 0.0 TH/MM3 (0-0.2) CBC Comment AUTO DIFF Differential Comment AUTO DIFF CONFIRMED Platelet Estimate LOW (NORMAL) Platelet Morphology Comment NORMAL (NORMAL) Blood Urea Nitrogen 56 MG/DL (7-18) Creatinine 0.97 MG/DL (0.60-1.30) Random Glucose 183 MG/DL (74-106) Total Protein 5.2 GM/DL (6.4-8.2) Albumin 1.9 GM/DL (3.4-5.0) Calcium Level 7.8 MG/DL (8.5-10.1) Alkaline Phosphatase 72 U/L (45-117) Aspartate Amino Transf (AST/SGOT) 87 U/L (15-37) Alanine Aminotransferase (ALT/SGPT) 295 U/L (12-78) Total Bilirubin 0.8 MG/DL (0.2-1.0) Sodium Level 135 MEQ/L (136-145) Potassium Level 4.0 MEQ/L (3.5-5.1) Chloride Level 99 MEQ/L (98-107) Carbon Dioxide Level 26.9 MEQ/L (21.0-32.0) Anion Gap 9 MEQ/L (5-15) Estimat Glomerular Filtration Rate 79 ML/MIN (>89) Result Diagram: 02/04/17 0330 02/04/17 0330 Procedures 02/03/17 -EGD 02/02/17 Intubated 02/02/17 Right femoral central line placement 02/02/17 Right femoral Arterial line . Assessment and Plan Disease Oriented Problem List: (1) Septic shock (2) PEA (Pulseless electrical activity) (3) Respiratory failure (4) Esophageal carcinoma (5) Acute kidney injury (6) Edema (7) Physical deconditioning (8) Anemia Symptom Scale: (1) Shortness of breath 0-10 Scale: Unable to quantify Comment: Intubated on mechanical ventilation. (2) Pain 0-10 Scale: Unable to quantify Comment: Multifactorial. Currently on fentanyl drip. (3) Debility 0-10 Scale: Unable to quantify Comment: Progressive. Pertinent Non-Medical Issues Psychosocial: Mr La is a 61-year-old male who was born in [place], [place]. Patient moved to [place] at the age of 15. He never attended high school after he moved to [place] nor obtained his GED. 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 Patient worked a lot with chemicals in [employer]. No service. Patient is , has 1 daughter. Patient residing with girlfriend Luly Bautista for the past 40 years. Spiritual: The roman catholic affiliation. Legal: Advance directives completed. Copy in file. Ethical issues impacting care: Patient unable to participate in medical decision making given clinical condition, intubated/sedated. . Important Contacts Daughter -Mena La Significant although Luly Bautista or . . 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 Patient presented to the ED via EMS 02/02/17 from a [facility] for shortness of breath and weakness. Patient sustained PEA arrest, underwent CPR and ACLS drugs with ROS, subsequently intubated and placed on mechanical ventilation. Patient was recently discharged from the [facility] on 01/30/17 after hospitalization x 2 months. During hospitalization, his clinical course was complicated by NSTEMI, patient underwent PCI with bare metal stents on 11/30/16. Clinical course further complicated by persistent fever, MSSA bacteremia, worsening sepsis, A. fib with RVR and persistent respiratory failure, intubation and mechanical ventilation x3 times, pericardial effusion requiring pericardiocentesis and pleural effusion with chest tube placement. Patient's overall prognosis is poor given multiple chronic ongoing comorbidities, recent prolonged hospitalization x 2 months with multiple complications, malignancy, malnutrition, most recent PEA arrest and profound physical deconditioning. Patient remains at very high risk for further complications, continued decline and . . Code Status: Full Code Plan * CODE STATUS: Full Code. Risks, benefits and limitations of CPR were discussed with significant other Luly and ruddy San. * CAYLA CARE SURROGATE: Patient unable to participating medical decision making given clinical condition, intubated/sedated. Designation of healthcare surrogate completed during prior hospitalization. Patient designated his daughter Mena La AND significant other Luly Bautista as healthcare surrogate decision maker. * GOALS OF CARE: 02/04/17 -Patient's significant other Luly AND pt's daughter Mena electing to continue current aggressive management with hopes of medical extubation to allow patient to participating in medical decision-making. Family hopeful that patient will regain medical decision-making capacity to readdress goals of care. Family made aware that patient's clinical condition remains critical; high risk for further complications, continue decline and . * SYMPTOMS: ==Shortness of breath, multifactorial. Currently intubated on mechanical ventilation. = Pain, secondary to ET tube, lines, bedrest, recent prolonged hospitalization. Currently on fentanyl drip. = Debility, secondary to chronic comorbidities, acute events, present prolonged hospitalization. Likely to continue to worsen. * Case discussed with Dr. Delarosa and bedside RN Pinky. * Spiritual services offered and accepted. Referral made. * Ongoing emotional support and active listening provided to patient's significant other Luly and ruddy San. There were both encouraged to continue goals of care conversation. * Palliative care contact information has been provided to patient's family. Family receptive to palliative care follow-ups. * Palliative care will continue to follow-up for further clarifications goals of care patient's clinical condition continues to evolve. . Time Spent Total Floor Time (mins): 40 (Total time to include review and summarization of medical records, physical exam, goals of care conversation with patient's significant other Luly, telephone conversation with patient's ruddy San, case discussion with Dr. Delarosa and bedside RN Pinky.) >50% Counseling/Coord of Care: Yes Attestation To help prompt me to consider important information that might be impacting today's encounter and assessment, information from prior notes written by myself or my colleagues may have been "brought forward" into today's note. My signature on this note, however, is an attestation that I personally performed the exam, history, and/or decision-making noted today, and, unless otherwise indicated, the interactions with patient, family, and staff as well as the review of records all occurred today. I also attest that the listed assessment and stated plan reflect my best clinical judgment today based on the combination of historical information, prior notes, and today's exam/ interactions. When time spent is documented, it refers only to time spent today by the signer, or if indicated, combined time spent today by collaborating physician/nurse practitioner. Ida Alston Feb 04, 2017 13:51
[2017-02-04] MEDS: DEXT 5%-NACL 0.9% 1000 ML INJ 1,000 ML IV SCH (14:00)
[2017-02-04] MEDS: VASOPRESSIN INJ 40 UNITS in DEXTROSE 5% IN WATER 100ML INJ 98 ML IV SCH ×2 (14:40)
[2017-02-04] MEDS ORDERED: LORazepam 2 MG/ML VIAL IV ONE (14:45)
--- NOTE | 2017-02-04 16:51 | PD.PROCEDR ---
Procedure Note Procedure Procedure US guided right pigtail chest tube placement Indication: Large right pleural effusion A time-out was completed verifying correct patient, procedure, site, positioning , and special equipment if applicable. The patient was positioned appropriately for chest tube placement. The patients right chest insertion site was marked with US and was prepped and draped in sterile fashion. 1% Lidocaine was used to anesthetize the surrounding skin area. A skin john was made with scalpel in the mid-axillary line. Introducer needle placed in the pleural space and clear light yellow pleural fluid was aspirated. A guidewire was placed and the track was serially dilated. Using Seldinger technique, 10 F pigtail chest tube was placed. The chest tube was sutured securely to the skin and a sterile dressing applied. A pleurevac was attached to the chest tube and a chest x-ray obtained. Initial output 750 ml light yellow clear fluid. CXR pending Estimated Blood Loss: 1 ml The patient tolerated the procedure well and there were no complications. Bean Delarosa MD Feb 04, 2017 16:51
--- NOTE | 2017-02-04 17:37 | RADRPT ---
EXAM DATE/TIME: 02/04/2017 17:06 [facility] COMPARISON: CT THORAX W/O CONTRAST, January 31, 2017, 12:52. CHEST SINGLE AP, February 04, 2017, 4:31. INDICATIONS : Chest tube placement. MEDICAL HISTORY : Diabetes mellitus type 2. Squamous cell carcinoma, esophageal carcinoma SURGICAL HISTORY : Coronary artery stent. Appendectomy. Port removed. ENCOUNTER: Subsequent ACUITY: 2 months PAIN SCORE: Non-responsive. LOCATION: Bilateral chest FINDINGS: Patient is intubated ET tube in good position. Small chest tube is in place on the right with reduct ion of fusion. Moderate consolidations are seen the left base. The heart is enlarged with moderate congestive failure. CONCLUSION: Small bore chest tube in place with reduction in the amount of effusion. Everett Pollock MD FACR on February 04, 2017 at 17:35 Board Certified Radiologist. This report was verified electronically.
[2017-02-04] MEDS: MIDAZOLAM 100 MG/100 ML INJ 100 ML IV PRN (18:34)
[2017-02-04] MEDS: fentaNYL DRIP 250 ML IV PRN (18:35)
[2017-02-04 20:32] LABS: TOTAL PROTEIN,PLEURAL FLUID 1.2 GM/DL
[2017-02-04 21:16] LABS: PLEURAL FLUID LYMPHS 60 %
--- NOTE | 2017-02-04 23:26 | PD.ONC.PN ---
Subjective Subjective Remarks remains acutely ill case discussed with Dr. Delarosa Patient has at least Stage IIa gastric/esophageal cancer. T3, NO patients with Stage II gastric/esophageal ca are offered definitive treatment with chemo-rad, or perioperative chemo-rad followed by surgery. In either case the intent is curative This is a very difficult situation. Patient has multiple ongoing issues that are preventing definitive treatment for his cancer He has severe AI which needs to be addressed. I would recommend CT surgery consult If his gastric cancer remains untreated, it will inevitably become stage IV. He can not receive any treatments at this time due to his cardiac issues. d/w rn o/n events reviewed Objective Data Date Time Temp Pulse Resp B/P (MAP) Pulse Ox O2 Delivery O2 Flow Rate FiO2 02/04/17 22:20 99 35 02/04/17 22:00 80 02/04/17 20:00 35 02/04/17 20:00 97.9 83 19 133/63 (86) 96 02/04/17 20:00 83 02/04/17 19:45 98 35 02/04/17 18:00 85 02/04/17 16:11 96 35 02/04/17 16:00 97.6 92 18 130/60 (83) 96 02/04/17 16:00 35 02/04/17 16:00 92 02/04/17 14:00 88 02/04/17 12:56 96 35 02/04/17 12:00 97.9 93 18 136/64 (88) 90 Arterial Line 02/04/17 12:00 35 02/04/17 12:00 93 02/04/17 10:00 88 02/04/17 08:19 100 35 02/04/17 08:00 70 02/04/17 08:00 40 02/04/17 08:00 97.0 70 18 110/45 (66) 100 89/54 (66) 02/04/17 04:00 40 02/04/17 04:00 97.2 68 18 108/44 (65) 100 02/04/17 03:50 100 40 02/04/17 00:00 40 02/04/17 00:00 97.0 73 18 111/45 (67) 100 02/03/17 23:43 100 40 Result Diagram: 02/04/17 0330 02/04/17 0330 Laboratory Results Laboratory Tests Test 02/04/17 03:30 02/04/17 16:45 White Blood Count 5.8 TH/MM3 Red Blood Count 3.06 MIL/MM3 Hemoglobin 9.1 GM/DL Hematocrit 27.5 % Mean Corpuscular Volume 89.9 FL Mean Corpuscular Hemoglobin 29.8 PG Mean Corpuscular Hemoglobin Concent 33.1 % Red Cell Distribution Width 17.3 % Platelet Count 92 TH/MM3 Mean Platelet Volume 9.4 FL Neutrophils (%) (Auto) 87.4 % Lymphocytes (%) (Auto) 7.9 % Monocytes (%) (Auto) 4.7 % Eosinophils (%) (Auto) 0.0 % Basophils (%) (Auto) 0.0 % Neutrophils # (Auto) 5.1 TH/MM3 Lymphocytes # (Auto) 0.5 TH/MM3 Monocytes # (Auto) 0.3 TH/MM3 Eosinophils # (Auto) 0.0 TH/MM3 Basophils # (Auto) 0.0 TH/MM3 CBC Comment AUTO DIFF Differential Comment AUTO DIFF CONFIRMED Platelet Estimate LOW Platelet Morphology Comment NORMAL Blood Urea Nitrogen 56 MG/DL Creatinine 0.97 MG/DL Random Glucose 183 MG/DL Total Protein 5.2 GM/DL Albumin 1.9 GM/DL Calcium Level 7.8 MG/DL Alkaline Phosphatase 72 U/L Aspartate Amino Transf (AST/SGOT) 87 U/L Alanine Aminotransferase (ALT/SGPT) 295 U/L Total Bilirubin 0.8 MG/DL Sodium Level 135 MEQ/L Potassium Level 4.0 MEQ/L Chloride Level 99 MEQ/L Carbon Dioxide Level 26.9 MEQ/L Anion Gap 9 MEQ/L Estimat Glomerular Filtration Rate 79 ML/MIN Pleural Fluid pH 8.5 Pleural Fluid WBC 110 /MM3 Pleural Fluid RBC 210 /MM3 Pleural Fluid Neutrophils 22 % Pleural Fluid Lymphocytes 60 % Pleural Fluid Monocytes 12 % Pleural Fluid Mesothelial Cells 6 % Pleural Fluid Total Protein 1.2 GM/DL Pleural Fluid LDH 54 U/L Pleural Fluid Glucose 184 MG/DL Culture Results Microbiology Date/Time Source Procedure Growth Status 02/04/17 16:45 Fluid Pleural Fluid Fungal Smear Pending Received 02/04/17 16:45 Fluid Pleural Fluid Fungal Culture Pending Received 02/04/17 16:45 Fluid Pleural Fluid Acid Fast Stain Pending Received 02/04/17 16:45 Fluid Pleural Fluid Mycobacterial Culture Pending Received 02/04/17 16:45 Fluid Pleural Fluid Gram Stain Pending Received 02/04/17 16:45 Fluid Pleural Fluid Body Fluid Culture Pending Received Imaging Studies Last 24 hours Impressions Chest X-Ray 02/04/17 0000 Signed Impressions: Service Date/Time: Saturday, February 04, 2017 17:06 - CONCLUSION: Small bore chest tube in place with reduction in the amount of effusion. Everett Pollock MD FACR Chest X-Ray 02/04/17 0000 Signed Impressions: Service Date/Time: Saturday, February 04, 2017 04:31 - CONCLUSION: Unchanged exam with bilateral pleural effusions and bibasilar pulmonary infiltrates. Kulwant Cowart Jr., MD Administered Medications Medications (Trade) Dose Ordered Sig/Geovanny Route PRN Reason Start Time Stop Time Status Last Admin Dose Admin Miscellaneous Information 1 [id number] XX 01/31/17 10:00 01/31/17 10:00 Chlorhexidine Gluconate (Chlorhexidine 2% Cloth) 3 pack Taper DAILY@04 TOP 02/01/17 04:00 01/28/18 03:59 02/04/17 20:19 Senna/Docusate Sodium (Rere-Colace) 1 tab BID PO 01/31/17 21:00 02/04/17 20:18 Insulin Human Regular (NovoLIN R SUPPLEMENTAL SCALE) 1 Q4H SQ 01/31/17 10:00 02/04/17 17:15 Clopidogrel Bisulfate (Plavix) 75 mg DAILY PO 01/31/17 11:00 02/04/17 08:32 Vasopressin 40 units/Dextrose 100 ml @ 6 mls/hr [id number] IV 01/31/17 10:40 02/01/17 18:51 Fentanyl Citrate 250 ml @ 5 mls/hr TITRATE PRN IV SEDATION 01/31/17 12:45 02/04/17 18:35 Norepinephrine Bitartrate 250 ml @ 7.5 mls/hr TITRATE PRN IV Blood pressure management 01/31/17 16:00 02/02/17 02:40 Midazolam HCl 100 ml @ 2 mls/hr TITRATE PRN IV SEDATION 01/31/17 16:00 02/04/17 18:34 Propofol 100 ml @ 3 mls/hr TITRATE PRN IV SEDATION 01/31/17 17:45 01/31/17 17:40 Propofol 100 ml @ 3 mls/hr TITRATE PRN IV SEDATION 01/31/17 18:00 01/31/17 19:59 Cefepime HCl 2000 mg/Sodium Chloride 100 ml @ 200 mls/hr Q12H IV 02/01/17 02:00 02/04/17 17:15 Hydrocortisone Sodium Succinate (SoluCORTEF INJ) 50 mg Q6HR IV PUSH 02/01/17 12:00 02/04/17 17:17 Pantoprazole Sodium (Protonix Inj) 40 mg Q12HR IV PUSH 02/02/17 21:00 02/04/17 20:18 Collagenase (Santyl Oint) 1 applic DAILY TOPICAL 02/03/17 09:00 02/04/17 08:30 Aspirin (Ecotrin Ec) 81 mg DAILY PO 02/04/17 09:00 02/04/17 08:31 Dextrose/Sodium Chloride 1,000 ml @ 50 mls/hr Q20H IV 02/03/17 18:00 02/03/17 20:49 Objective Remarks GENERAL: acutely ill, on ventilator SKIN: Warm and dry. LYMPHATIC: No adenopathy. CARDIOVASCULAR: Regular rate and rhythm without murmurs. RESPIRATORY: Breath sounds equal bilaterally. No accessory muscle use. GASTROINTESTINAL: Abdomen soft, non-tender, nondistended. EXTREMITIES: No cyanosis, or edema. Assessment/Plan Problem List: (1) SCC (squamous cell carcinoma) ICD Codes: C44.92 - Squamous cell carcinoma of skin, unspecified Status: Acute (2) Elevated troponin ICD Codes: R74.8 - Abnormal levels of other serum enzymes Status: Acute (3) Normocytic anemia ICD Codes: D64.9 - Anemia, unspecified Status: Acute (4) Esophageal adenocarcinoma ICD Codes: C15.9 - Malignant neoplasm of esophagus, unspecified Status: Acute Brant Bell MD Feb 04, 2017 23:25
[2017-02-05] VITALS (19 sets, daily range): BP systolic 98–145; BP diastolic 50–65; PULSE 77–100; RESP 18–19; TEMP 97.5–98.7; O2SAT 98–100
[2017-02-05] MEDS: HYDROCORTISONE SOD SUCCINATE 100 MG VIAL IV PUSH SCH ×4 (00:16→20:57)
[2017-02-05] MEDS: CEFEPIME INJ 2,000 MG in SODIUM CHLORIDE 0.9% INJ 100 ML IV SCH ×2 (02:00→14:33)
[2017-02-05] MEDS: INSULIN NovoLIN REGULAR SUPPLEMENTAL SCALE SQ SCH ×6 (02:00→20:57)
--- NOTE | 2017-02-05 05:04 | RADRPT ---
EXAM DATE/TIME: 02/05/2017 04:19 [facility] COMPARISON: CHEST SINGLE AP, February 04, 2017, 17:06. INDICATIONS : Shortness of breath, possible pulmonary disease. MEDICAL HISTORY : Diabetes mellitus type II. Carcinoma, esophageal. Squamous cell carcinoma SURGICAL HISTORY : Appendectomy. Coronary artery stent. ENCOUNTER: Subsequent ACUITY: 2 months PAIN SCORE: Non-responsive. LOCATION: Bilateral chest FINDINGS: A single portable frontal view of the chest shows cardiomegaly with bibasilar pulmonary infiltrates m ore pronounced on the left. Small left effusion. These are unchanged. Small caliber right thoracostom y tube. No pneumothorax. Degenerative spine. Tip of the endotracheal tube 5 cm proximal to the elizabeth . CONCLUSION: 1. Bibasilar pulmonary infiltrates more pronounced on the left with a small effusion. These are uncha nged. 2. Right thoracostomy tube without pneumothorax. 3. Mild cardiomegaly. Kulwant Cowart Jr., MD on February 05, 2017 at 5:01 Board Certified Radiologist. This report was verified electronically.
[2017-02-05 05:39] LABS: AUTOMATED NEUTROPHIL # 5.3 TH/MM3 (1.8-7.7); BASOPHIL % 0.1 % (0.0-2.0); EOSINOPHIL % 0.1 % (0.0-4.0); HEMATOCRIT 31.3 % (39.0-51.0); LYMPH % 8.5 % (9.0-44.0); LYMPHOCYTE # 0.5 TH/MM3 (1.0-4.8); MEAN CELL VOLUME 92.3 FL (80.0-100.0); MEAN CORPUSCULAR HGB CONC 32.5 % (32.0-36.0); MONO % 6.5 % (0.0-8.0); NEUT % 84.8 % (16.0-70.0); PLATELET COUNT 94 TH/MM3 (150-450); RED CELL DISTRIBUTION WIDTH 17.5 % (11.6-17.2); WHITE BLOOD COUNT 6.2 TH/MM3 (4.0-11.0)
[2017-02-05 05:42] LABS: HEMO FLAGS AUTO DIFF
[2017-02-05 07:12] LABS: ALT (GPT) 243 U/L (12-78); ANION GAP 10 MEQ/L (5-15); AST (GOT) 47 U/L (15-37); BICARBONATE 26.8 MEQ/L (21.0-32.0); BLOOD UREA NITROGEN 61 MG/DL (7-18); CHLORIDE 99 MEQ/L (98-107); GLOMERULAR FILTRATION RATE 67 ML/MIN (>89); MAGNESIUM 2.3 MG/DL (1.5-2.5); POTASSIUM 4.1 MEQ/L (3.5-5.1); SODIUM (NA) 136 MEQ/L (136-145)
[2017-02-05 07:19] LABS: ALKALINE PHOSPHATASE 74 U/L (45-117); TOTAL BILIRUBIN ADULT 0.7 MG/DL (0.2-1.0)
[2017-02-05] MEDS: VASOPRESSIN INJ 40 UNITS in DEXTROSE 5% IN WATER 100ML INJ 98 ML IV SCH ×2 (07:20)
[2017-02-05 07:50] LABS: PLATELET ESTIMATE SMEAR LOW (NORMAL); PLATELET MORPHOLOGY NORMAL (NORMAL); SCAN/DIFF AUTO DIFF CONFIRMED
--- NOTE | 2017-02-05 08:07 | MB ---
cc: GUERLINE LABOY DATE OF CONSULTATION 02/04/2017 DATE OF 1955. HISTORY OF THE PRESENT ILLNESS A 61-year-old male admitted on the via the emergency department. The patient was found by home visiting nurse with extremely low saturations. The patient was initially placed on 100% non-rebreather and was also hypotensive, was very extremely edematous. He was in significant distress and had just recently been discharged the day prior for recent sepsis. During the course of the emergency stay he apparently went into worsening respiratory distress, hypotension and bradycardia. Went into PEA, ACLS was initiated. Potassium was also found to be 6.7 with an lactic acid of 14,000. He was treated with an amp of D50 and 10 units of regular insulin. The patient then was intubated, a central line was placed. He was then transferred to the intensive care unit. Other additional information the patient had a stage IV sacral decubitus ulcer. 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 He is being followed by Dr. Bell was diagnosed with poorly differentiated squamous cell carcinoma status post parotidectomy and radical neck dissection in the past now with recurrence and a recommendation for adjunctive radiation. The patient was seen yesterday by Dr. Bell. After his last admission he went into half-way facility with also a history of his head and neck cancer, esophageal cancer. On his previous admission he had complicated high-grade MSSA bacteremia due to infected port, Pseudomonas pneumonia, pleural effusions, pericardial effusions which were drained, prolonged hospitalization. Apparently on the he developed SVT with heart rate of 204, was cardioverted and also given adenosine. He also received 2 units of packed Rbc's. Since admission he has been seen by ID currently on broad-spectrum antibiotics. CT of the chest also shows moderate bilateral pleural effusions with some associated bibasilar airspace consolidation. We were consulted after the patient underwent echocardiogram which showed an EF of 40-45%, global left ventricular dysfunction. The RV was moderately dilated. Left atrium was moderately dilated. The right atrium moderately dilated. Severe aortic regurgitation. No aortic valve stenosis. Moderate tricuspid regurgitation. Pulmonary hypertension with pulmonary pressures of 40-50 mmHg. The vena cava, inferior vena cava was also dilated and there was also a left pleural effusion noted. The aortic peak velocity is 186 cm2. Aortic valve mean gradient of 70. At this time the patient has also been seen by Dr. Miguel Krause. The patient is not a candidate for PAM given the esophageal mass. Unsure if the severe AI is new versus chronic. EKG shows sinus arrhythmia, incomplete right bundle branch block. He has got some Q-wave is his inferior leads. PAST MEDICAL HISTORY Includes: 1. Head and neck cancer. 2. Esophageal adenocarcinoma. 3. Status post stent placement in December. 4. Coronary artery disease with previous stent in the proximal circ. 5. Squamous cell carcinoma of the skin. 6. Chronic anemia. 7. History of atrial flutter. 8. Status post cardiac arrest. PAST SURGICAL HISTORY Surgery again includes: 1. Coronary stent placement. 2. Esophageal stent placement. SOCIAL HISTORY The patient is a senior care resident. Has a history of EtOH and tobacco abuse. ALLERGIES INCLUDE PENICILLIN. MEDICATIONS At home include: 1. Prednisone. 2. Protonix. 3. Carafate. 4. Lasix. 5. Restoril. 6. Aspirin. 7. Diltiazem. 8. Metoprolol. 9. Amiodarone. 10. Plavix. 11. Vitamin B12. 12. Levothyroxine. 13. Metformin. REVIEW OF SYSTEMS Unobtainable. PHYSICAL EXAMINATION GENERAL: The patient is critically ill on the ventilator. Currently off of pressors. He is sedated on low dose fentanyl and versed. VITAL SIGNS: Blood pressure at this time is 110/60, heart rate 188, O2 saturation 96% on 35% FIO2. The patient is awake. He will follow simple commands. Moves all extremities. HEENT: Head is Atraumatic, normocephalic. Pupils equal and reactive. Oral mucosa pink, moist. NECK: Supple. No JVD. CARDIOVASCULAR: Heart sounds S1-S2 slightly irregular. He has got a grade 3 diastolic murmur best noted at the right sternal border. LUNGS: With coarse bilateral breath sounds. Orally intubated. ABDOMEN: Obese, soft, nontender. Hypoactive bowel sounds. EXTREMITIES: He has got 3+ pitting edema. No cyanosis, very dry scaly skin. LABORATORY FINDINGS Shows hemoglobin 9.1, hematocrit of 27. His admission hemoglobin was 8.3. He has had since 3 units of blood of packed RBCs infused. WBC count of 16,000, now down to 5.8. Platelet count of 92 which started out at 288. Sodium 135, potassium 4.0, BUN of 56, creatinine 0.97. Liver function tests have been trending down, they came in at 342 AST, ALT 474. Now AST is 87, ALT is 295. Albumin 1.9. Glucose 183. INR 1.3. Urinalysis did show moderate leukocyte esterase, occasional bacteria. MRSA not protective. Hep negative, hep C positive. Micro shows no growth in blood cultures. Urine Legionella negative. Sputum is negative. IMAGING Radiological exams chest x-ray, bilateral pleural effusions, bilateral pulmonary infiltrates. Ultrasound of the liver, cirrhotic appearing liver with trace ascites in the pelvis, some gallbladder wall thickening, mild pericholecystic fluid without gallstones. Chest CT scan again showed bilateral moderate effusions, associated bibasilar airspace consolidation, against diffuse soft tissue prominence in the mid distal esophagus with an esophageal stent in place, consistent with history esophageal CA. IMPRESSION This is an unfortunate 61-year-old male with multiple comorbidities, now with an echocardiogram showing severe aortic insufficiency presented again with acute respiratory failure status post septic shock requiring intubation, anemia requiring transfusion, hyperkalemia which is resolved, history of coronary artery disease with stent placement, history of esophageal cancer stage II. Also squamous cell of the skin. As per Dr. Krause's note he is not a candidate for a PAM secondary to esophageal cancer. He is currently off all pressors. The ventilator is followed by critical care management. The patient is continued on IV antibiotic, his sepsis has improved. Overall the patient has significant comorbidities, evaluation for any aortic valve replacement to be decided as per Dr. Guerline Laboy and further evaluation. The patient has significant prolonged hospitalization for two months, malignancy, malnutrition, most recent PEA arrest and profound physical deconditioning. The patient at this time again will be evaluated by Dr. Guerline Laboy to see whether not he is a candidate, however with his multiple comorbidities it makes him a very high risk for surgery. DICTATED BY: CHANTAL Streeter This patient is not an operative candidate. MD NOMI Rivera/MOISES /3:26 PM /8:02 AM [facility]ITALElisha
[2017-02-05] MEDS: CLOPIDOGREL 75 MG TAB PO SCH (08:49)
[2017-02-05] MEDS: PANTOPRAZOLE SODIUM 40 MG VIAL IV PUSH SCH ×2 (08:49→20:57)
[2017-02-05] MEDS: ASPIRIN EC 81 MG TABEC PO SCH ×2 (08:49→09:00)
[2017-02-05] MEDS: DOCUSATE SODIUM 50 MG/SENNA 8.6 MG TAB PO SCH ×2 (08:49→20:57)
[2017-02-05] MEDS: COLLAGENASE OINT 30 GM TUBE TOPICAL SCH (08:50)
[2017-02-05] MEDS: DEXT 5%-NACL 0.9% 1000 ML INJ 1,000 ML IV SCH (10:00)
--- NOTE | 2017-02-05 12:10 | PD.ONC.PN ---
Subjective Subjective Remarks Afebrile overnight. Intubated, sedated. Objective Data Date Time Temp Pulse Resp B/P (MAP) Pulse Ox O2 Delivery O2 Flow Rate FiO2 02/05/17 10:00 90 02/05/17 08:58 99 35 02/05/17 08:58 35 02/05/17 08:00 35 02/05/17 08:00 97.6 87 18 117/59 (78) 98 02/05/17 08:00 87 02/05/17 06:00 83 02/05/17 04:14 100 35 02/05/17 04:00 98.6 88 18 122/65 (84) 98 02/05/17 04:00 88 02/05/17 04:00 35 02/05/17 02:00 77 02/05/17 01:27 99 35 02/05/17 00:00 35 02/05/17 00:00 82 02/05/17 00:00 98.0 82 19 109/60 (76) 98 02/04/17 22:20 99 35 02/04/17 22:00 80 02/04/17 20:00 35 02/04/17 20:00 97.9 83 19 133/63 (86) 96 02/04/17 20:00 83 02/04/17 19:45 98 35 02/04/17 18:00 85 02/04/17 16:11 96 35 02/04/17 16:00 97.6 92 18 130/60 (83) 96 02/04/17 16:00 35 02/04/17 16:00 92 02/04/17 14:00 88 02/04/17 12:56 96 35 02/05/17 02/05/17 02/05/17 07:00 15:00 23:00 Intake Total 162 ml Output Total 950 ml Balance -788 ml Result Diagram: 02/05/17 0350 02/05/17 0350 Laboratory Results Laboratory Tests Test 02/04/17 16:45 02/05/17 03:50 Pleural Fluid pH 8.5 Pleural Fluid WBC 110 /MM3 Pleural Fluid RBC 210 /MM3 Pleural Fluid Neutrophils 22 % Pleural Fluid Lymphocytes 60 % Pleural Fluid Monocytes 12 % Pleural Fluid Mesothelial Cells 6 % Pleural Fluid Total Protein 1.2 GM/DL Pleural Fluid LDH 54 U/L Pleural Fluid Glucose 184 MG/DL White Blood Count 6.2 TH/MM3 Red Blood Count 3.40 MIL/MM3 Hemoglobin 10.2 GM/DL Hematocrit 31.3 % Mean Corpuscular Volume 92.3 FL Mean Corpuscular Hemoglobin 30.0 PG Mean Corpuscular Hemoglobin Concent 32.5 % Red Cell Distribution Width 17.5 % Platelet Count 94 TH/MM3 Mean Platelet Volume 9.8 FL Neutrophils (%) (Auto) 84.8 % Lymphocytes (%) (Auto) 8.5 % Monocytes (%) (Auto) 6.5 % Eosinophils (%) (Auto) 0.1 % Basophils (%) (Auto) 0.1 % Neutrophils # (Auto) 5.3 TH/MM3 Lymphocytes # (Auto) 0.5 TH/MM3 Monocytes # (Auto) 0.4 TH/MM3 Eosinophils # (Auto) 0.0 TH/MM3 Basophils # (Auto) 0.0 TH/MM3 CBC Comment AUTO DIFF Differential Comment AUTO DIFF CONFIRMED Platelet Estimate LOW Platelet Morphology Comment NORMAL Blood Urea Nitrogen 61 MG/DL Creatinine 1.12 MG/DL Random Glucose 193 MG/DL Total Protein 5.8 GM/DL Albumin 2.3 GM/DL Calcium Level 8.3 MG/DL Magnesium Level 2.3 MG/DL Alkaline Phosphatase 74 U/L Aspartate Amino Transf (AST/SGOT) 47 U/L Alanine Aminotransferase (ALT/SGPT) 243 U/L Total Bilirubin 0.7 MG/DL Sodium Level 136 MEQ/L Potassium Level 4.1 MEQ/L Chloride Level 99 MEQ/L Carbon Dioxide Level 26.8 MEQ/L Anion Gap 10 MEQ/L Estimat Glomerular Filtration Rate 67 ML/MIN Culture Results Microbiology Date/Time Source Procedure Growth Status 02/04/17 16:45 Fluid Pleural Fluid Fungal Smear - Final NO FUNGAL ELEMENTS SEEN. Resulted 02/04/17 16:45 Fluid Pleural Fluid Fungal Culture Pending Resulted 02/04/17 16:45 Fluid Pleural Fluid Acid Fast Stain Pending Received 02/04/17 16:45 Fluid Pleural Fluid Mycobacterial Culture Pending Received 02/04/17 16:45 Fluid Pleural Fluid Gram Stain - Final Resulted 02/04/17 16:45 Fluid Pleural Fluid Body Fluid Culture Pending Resulted Imaging Studies Last 24 hours Impressions Chest X-Ray 02/05/17 0600 Signed Impressions: Service Date/Time: January 04:19 - CONCLUSION: 1. Bibasilar pulmonary infiltrates more pronounced on the left with a small effusion. These are unchanged. 2. Right thoracostomy tube without pneumothorax. 3. Mild cardiomegaly. Kulwant Cowart Jr., MD Administered Medications Medications (Trade) Dose Ordered Sig/Geovanny Route PRN Reason Start Time Stop Time Status Last Admin Dose Admin Miscellaneous Information 1 Q361D XX 01/31/17 10:00 01/31/17 10:00 Chlorhexidine Gluconate (Chlorhexidine 2% Cloth) 3 pack Taper DAILY@04 TOP 02/01/17 04:00 01/28/18 03:59 02/04/17 20:19 Senna/Docusate Sodium (Rere-Colace) 1 tab BID PO 01/31/17 21:00 02/05/17 08:49 Insulin Human Regular (NovoLIN R SUPPLEMENTAL SCALE) 1 Q4H SQ 01/31/17 10:00 02/05/17 10:31 Clopidogrel Bisulfate (Plavix) 75 mg DAILY PO 01/31/17 11:00 02/05/17 08:49 Vasopressin 40 units/Dextrose 100 ml @ 6 mls/hr [id number] IV 01/31/17 10:40 02/01/17 18:51 Fentanyl Citrate 250 ml @ 5 mls/hr TITRATE PRN IV SEDATION 01/31/17 12:45 02/04/17 18:35 Norepinephrine Bitartrate 250 ml @ 7.5 mls/hr TITRATE PRN IV Blood pressure management 01/31/17 16:00 02/02/17 02:40 Midazolam HCl 100 ml @ 2 mls/hr TITRATE PRN IV SEDATION 01/31/17 16:00 02/04/17 18:34 Propofol 100 ml @ 3 mls/hr TITRATE PRN IV SEDATION 01/31/17 17:45 01/31/17 17:40 Propofol 100 ml @ 3 mls/hr TITRATE PRN IV SEDATION 01/31/17 18:00 01/31/17 19:59 Cefepime HCl 2000 mg/Sodium Chloride 100 ml @ 200 mls/hr Q12H IV 02/01/17 02:00 02/05/17 02:00 Hydrocortisone Sodium Succinate (SoluCORTEF INJ) 50 mg Q6HR IV PUSH 02/01/17 12:00 02/05/17 11:51 Pantoprazole Sodium (Protonix Inj) 40 mg Q12HR IV PUSH 02/02/17 21:00 02/05/17 08:49 Collagenase (Santyl Oint) 1 applic DAILY TOPICAL 02/03/17 09:00 02/05/17 08:50 Aspirin (Ecotrin Ec) 81 mg DAILY PO 02/04/17 09:00 02/05/17 08:49 Dextrose/Sodium Chloride 1,000 ml @ 50 mls/hr Q20H IV 02/03/17 18:00 02/03/17 20:49 Objective Remarks GENERAL: chronically ill, intubated, sedated patient supine in bed. SKIN: Warm and dry. HEAD: Normocephalic. EYES: No injection or drainage. NECK: Supple, trachea midline. CARDIOVASCULAR: +S1/S2 RESPIRATORY: on mechanical ventilation. anterior ray clear. GASTROINTESTINAL: Abdomen mildly distended. EXTREMITIES: No cyanosis NEUROLOGICAL: awake and alert, normal speech. Assessment/Plan Problem List: (1) Esophageal adenocarcinoma ICD Codes: C15.9 - Malignant neoplasm of esophagus, unspecified Status: Acute Plan: --cannot initiate treatment until patient's acute issues resolve, cancer will likely progress if we are not able to initiate treatment soon. --has been unable to follow up in the oncology clinic. --has not been initiated on chemotherapy or radiation treatments for his gastroesophageal cancer at this time. (2) Normocytic anemia ICD Codes: D64.9 - Anemia, unspecified Status: Acute Plan: --try to keep his hemoglobin greater than 8 in the setting of coronary artery disease. (3) Sepsis ICD Codes: A41.9 - Sepsis, unspecified organism Plan: --treatment per primary team/intensivists --d/t HCAP pneumonia --Sepsis and lactic acidosis Assessment 61y/o male with a history of head and neck malignancy as well as gastroesophageal cancer who was admitted to the hospital with respiratory failure and septic shock. h/o Head and neck cancer. Gastroesophageal adenocarcinoma Esophageal stricture with stent placement Coronary artery disease with previous stent to the proximal Circumflex. History of pleural and pericardial effusion. Anemia History of A. flutter. Plan 1. await evaluation from Dr. Naya Herron re: possible aortic valve replacement 2. will continue to follow, but we cannot initiate treatment until patient's cardiac issues improve. 3. monitor CBC, recommend to keep [id number] Attending Statement The exam, history, and the medical decision-making described in the above note were completed with the assistance of the mid-level provider. I reviewed and agree with the findings presented. I attest that I had a [id number] encounter with the patient on the same day, and personally performed and documented my assessment and findings in the medical record Perla Duran Feb 05, 2017 12:10 Brant Bell MD Feb 06, 2017 23:26
--- NOTE | 2017-02-05 12:53 | HHI.IDPN ---
Subjective Subjective Remarks Chart reviewed Patient known to me from his previous admissions He has known head and neck CA, and esophageal mass, S/P esophageal stent during his last hospitalization He was treated for high grade MSSA bacteremia, due to infected port Port removed and he completed Abx Rx with Ancef on Jan 15 He was also treated for PSAE PNA during his last admission He also had evidence of serositis and had pleural effusions and pericardial effusions that were both drained, C/S negative (but he was on Abx), cytology negative for malignancy He was D/C to SNF 01/30 and readmitted 01/31 Notes reviewed D/W RN Off pressors On the vent, sedated Did not tolerate weaning Remains in NSR Has CT R side - fluid is transudative Echo with multiple valvular insufficiency including severe AI CTS evaluation noted Last echo Jan 07, no valvular abnormality, EF 60-65% Had EGD, has bleeding from esophageal mass, stent open and in position. WBC down to normal Platelets decreasing Creatinine stable LFT improving BC negative Sputum normal adama Antibiotics cefepime Lines PIV Past Medical History Reviewed Allergies: Coded Allergies: penicillin G (Unverified Allergy, Mild, Hives, 12/30/16) Objective . Vital Signs Date Time Temp Pulse Resp B/P (MAP) Pulse Ox O2 Delivery O2 Flow Rate FiO2 02/05/17 12:30 99 35 02/05/17 12:00 80 02/05/17 12:00 97.5 80 18 100/52 (68) 99 02/05/17 12:00 35 02/05/17 10:00 90 02/05/17 08:58 99 35 02/05/17 08:58 35 02/05/17 08:00 35 02/05/17 08:00 97.6 87 18 117/59 (78) 98 02/05/17 08:00 87 02/05/17 06:00 83 02/05/17 04:14 100 35 02/05/17 04:00 98.6 88 18 122/65 (84) 98 02/05/17 04:00 88 02/05/17 04:00 35 02/05/17 02:00 77 02/05/17 01:27 99 35 02/05/17 00:00 35 02/05/17 00:00 82 02/05/17 00:00 98.0 82 19 109/60 (76) 98 02/04/17 22:20 99 35 02/04/17 22:00 80 02/04/17 20:00 35 02/04/17 20:00 97.9 83 19 133/63 (86) 96 02/04/17 20:00 83 02/04/17 19:45 98 35 02/04/17 18:00 85 02/04/17 16:11 96 35 02/04/17 16:00 97.6 92 18 130/60 (83) 96 02/04/17 16:00 35 02/04/17 16:00 92 02/04/17 14:00 88 02/04/17 12:56 96 35 . Laboratory Tests Test 02/04/17 03:30 02/05/17 03:50 White Blood Count 5.8 TH/MM3 6.2 TH/MM3 Red Blood Count 3.06 MIL/MM3 3.40 MIL/MM3 Hemoglobin 9.1 GM/DL 10.2 GM/DL Hematocrit 27.5 % 31.3 % Mean Corpuscular Volume 89.9 FL 92.3 FL Mean Corpuscular Hemoglobin 29.8 PG 30.0 PG Mean Corpuscular Hemoglobin Concent 33.1 % 32.5 % Red Cell Distribution Width 17.3 % 17.5 % Platelet Count 92 TH/MM3 94 TH/MM3 Mean Platelet Volume 9.4 FL 9.8 FL Neutrophils (%) (Auto) 87.4 % 84.8 % Lymphocytes (%) (Auto) 7.9 % 8.5 % Monocytes (%) (Auto) 4.7 % 6.5 % Eosinophils (%) (Auto) 0.0 % 0.1 % Basophils (%) (Auto) 0.0 % 0.1 % Neutrophils # (Auto) 5.1 TH/MM3 5.3 TH/MM3 Lymphocytes # (Auto) 0.5 TH/MM3 0.5 TH/MM3 Monocytes # (Auto) 0.3 TH/MM3 0.4 TH/MM3 Eosinophils # (Auto) 0.0 TH/MM3 0.0 TH/MM3 Basophils # (Auto) 0.0 TH/MM3 0.0 TH/MM3 CBC Comment AUTO DIFF AUTO DIFF Differential Comment AUTO DIFF CONFIRMED AUTO DIFF CONFIRMED Platelet Estimate LOW LOW Platelet Morphology Comment NORMAL NORMAL Laboratory Tests Test 02/04/17 03:30 02/05/17 03:50 Blood Urea Nitrogen 56 MG/DL 61 MG/DL Creatinine 0.97 MG/DL 1.12 MG/DL Random Glucose 183 MG/DL 193 MG/DL Total Protein 5.2 GM/DL 5.8 GM/DL Albumin 1.9 GM/DL 2.3 GM/DL Calcium Level 7.8 MG/DL 8.3 MG/DL Alkaline Phosphatase 72 U/L 74 U/L Aspartate Amino Transf (AST/SGOT) 87 U/L 47 U/L Alanine Aminotransferase (ALT/SGPT) 295 U/L 243 U/L Total Bilirubin 0.8 MG/DL 0.7 MG/DL Sodium Level 135 MEQ/L 136 MEQ/L Potassium Level 4.0 MEQ/L 4.1 MEQ/L Chloride Level 99 MEQ/L 99 MEQ/L Carbon Dioxide Level 26.9 MEQ/L 26.8 MEQ/L Anion Gap 9 MEQ/L 10 MEQ/L Estimat Glomerular Filtration Rate 79 ML/MIN 67 ML/MIN Magnesium Level 2.3 MG/DL Microbiology Date/Time Source Procedure Growth Status 02/04/17 16:45 Fluid Pleural Fluid Fungal Smear - Final NO FUNGAL ELEMENTS SEEN. Resulted 02/04/17 16:45 Fluid Pleural Fluid Fungal Culture Pending Resulted 02/04/17 16:45 Fluid Pleural Fluid Acid Fast Stain Pending Received 02/04/17 16:45 Fluid Pleural Fluid Mycobacterial Culture Pending Received 02/04/17 16:45 Fluid Pleural Fluid Gram Stain - Final Resulted 02/04/17 16:45 Fluid Pleural Fluid Body Fluid Culture Pending Resulted Imaging Allergies Coded Allergies penicillin G (Unverified Allergy, Mild, Hives, 12/30/16) Chest X-Ray 02/02/17 0000 Signed Impressions: Service Date/Time: Thursday, February 02, 2017 07:55 - CONCLUSION: Slow interval improvement. Supportive apparatus good position. Everett Pollock MD FACR Liver Ultrasound 02/01/17 0000 Signed Impressions: Service Date/Time: Wednesday, February 01, 2017 16:32 - CONCLUSION: 1. Cirrhotic appearing liver with trace ascites in the pelvis. 2. Gallbladder wall thickening and mild pericholecystic fluid without gallstones. These findings are routinely seen in the setting of cirrhosis. If there is significant clinical concern regarding cholecystitis, HIDA scan may be performed. 3. Bilateral pleural effusions. Escobar Joiner MD Chest X-Ray 01/31/17 0828 Signed Impressions: Service Date/Time: Tuesday, January 31, 2017 10:37 - CONCLUSION: 1. ET tube in good position. 2. Clinically. 3. Bilateral pleural effusions with partial right. 4. Consolidation/atelectasis at the bases being worse on the right. Washington Chou MD Chest CT 01/31/17 0000 Signed Impressions: Service Date/Time: Tuesday, January 31, 2017 12:52 - CONCLUSION: 1. Moderate bilateral pleural effusions with associated bibasilar airspace consolidation. 2. Mild patchy airspace disease in the lingula and right middle lobe. 3. Diffuse soft tissue prominence of the mid to distal esophagus with esophageal stent in place consistent with history of esophageal CA. Administered contrast extends to the proximal esophagus. 4. ETT in good position. NGT just be in the GE junction. 5. Prominent coronary artery calcifications. Escobar Joiner MD Abdomen/Pelvis CT 01/31/17 0000 Signed Impressions: Service Date/Time: Tuesday, January 31, 2017 12:52 - CONCLUSION: 1. No definite CT findings to explain patient's lactic acidosis. Specifically, no evidence for bowel infarction or perforation. 2. Moderate bilateral pleural effusions with associated bilateral lower lobe airspace consolidation. 3. Diffusely prominent distal esophagus with distal esophageal stent in place. NGT courses through the stent with tip just beyond the GE junction. 4. Cirrhotic appearing liver without evidence for significant ascites or focal drainable fluid collection. Escobar Joiner MD Physical Exam GENERAL: Sedated, on the vent, not in distress SKIN: Warm and dry, no rash, edematous. No jaundice. NO embolic lesions HEAD: Atraumatic. Normocephalic. EYES: Pupils equal and round and reactive. NO petechia or hemorrhage. No scleral icterus. No injection or drainage. . ENT: Nose without bleeding or purulent drainage. Orally intubated NECK: Trachea midline. Supple, nontender. CARDIOVASCULAR: Regular rate and rhythm. Harsh systolic murmur at base RESPIRATORY/CHEST: Symmetric, respirations. Coarse BS bilaterally, decreased at bases. CT R with serosanguineous fluid GASTROINTESTINAL: Abdomen soft, non-tender, nondistended. . No guarding. Bowel sounds present. GENITOURINARY: Saxena catheter in place with yellow urine MUSCULOSKELETAL: Extremities without clubbing, cyanosis. Has edema of hands and feet, no calf tenderness. No mottling or clubbing. NEUROLOGICAL: Sedated PSYCHIATRIC: unable to assess LINE: NO evidence of infection Assessment & Plan Remarks IMPRESSION Shock, sepsis, lactic acidosis, leukocytosis > 22K on presentation - his lactic acidemia improved - source? lung, UA with some pyuria Respiratory failure, ?PNA, plus CHF - sputum with normal adama Cardiomyopathy with severe AI, mod MR and TR Recent Rx for MSSA sepsis Recent Rx PSAE PPNA Known head and neck CA Esophageal CA, S/P stent Recent workup for pleural and pericardial effusions, no malignancy, (+) inflammation PCN allery but tolerated Cephalosporins PLAN Continue cefepime - give 7 days (end date 02/07) Weaning per CCM Monitor progress D/W Carola Dick MD Feb 05, 2017 12:53
--- NOTE | 2017-02-05 14:37 | HHI.HCPN ---
Reason for visit a. To assist with evaluation and management of symptoms including: Shortness of breath, Debility. b. To assist medical decision maker(s) with: better understanding of current medical conditions; weighing benefits/burdens of medical treatment options; making medical treatment decisions. . 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 Patient presented to the ED via EMS 02/02/17 from a halfway for shortness of breath and weakness. Patient sustained PEA arrest, underwent CPR and ACLS drugs with ROS, subsequently intubated and placed on mechanical ventilation. Patient was recently discharged from the [facility] to [facility] on 01/30/17 after hospitalization x 2 months. During hospitalization, his clinical course was complicated by NSTEMI, patient underwent PCI with bare metal stents on 11/30/16. Clinical course further complicated by persistent fever, MSSA bacteremia, worsening sepsis, A. fib with RVR and persistent respiratory failure, intubation and mechanical ventilation x3 times, pericardial effusion requiring pericardiocentesis and pleural effusion with chest tube placement. Palliative care consulted for further clarifications of goals of care given overall poor prognosis. Patient seen in ICU, remains endotracheally intubated on mechanical ventilation. 35% FiO2, oxygen saturation in the high 90s. Patient did not tolerate CPAP trial today. Pigtail chest tube to right long replaced yesterday , serosanguineous output. Chest x-ray today revealing bibasilar pulmonary infiltrates more pronounced on the left with a small effusion. Patient afebrile , hypotensive requiring decreasing sedation. Patient was seen with eyes opening , tracking. Answering simple yes/no questions. Denies pain. Laboratory workup today revealing WBC 6.2, Hgb 10.2, platelet count 94. BUN/creatinine 61/ 1.12. Albumin 2.3. Cardiothoracic surgery consulted, patient not likely a candidate for aortic valve replacement given his current clinical condition. Case discussed with bedside RN Pinky. . Family/friend interactions Telephone call to pt's daughter Mena La. Left message in VM. Telephone conversation with patient's significant other Luly. Medical update provided. Shared concerns of patient's ability to medically extubate and overall poor prognosis given multiple chronic ongoing comorbidities, recent prolonged hospitalization x 2 months with multiple complications, malignancy, malnutrition, most recent PEA arrest and profound physical deconditioning. Readdressed CODE STATUS, discussed risks, benefits and limitations of CPR given the above. Encouraged Luly to discussed the above concerns with Mena. . Advance Directives Living Will: Copy in medical record Health Care Surrogate: Copy in medical record Durable Power of Reel And Rewinder Operator: Never completed Advance Directive Specifics Date completed: HCS completed 12/25/16 Living Will completed 01/07/17. . Health Care Surrogate(s): This information of healthcare surrogate and filed. Patient designated his daughter Mena La AND girlfriend Luly Bautista as HCS. . Documented care wishes: Patient electing that life/prolonging procedures be withheld or withdrawn in the setting of persistent vegetative state. Patient electing no tracheostomy. . Significant change in goals: Full code. Continue current aggressive management, family hoping for medical extubation. . Objective Vital Signs Date Time Temp Pulse Resp B/P (MAP) Pulse Ox O2 Delivery O2 Flow Rate FiO2 02/05/17 12:30 99 35 02/05/17 12:00 80 02/05/17 12:00 97.5 80 18 100/52 (68) 99 02/05/17 12:00 35 02/05/17 10:00 90 02/05/17 08:58 99 35 02/05/17 08:58 35 02/05/17 08:00 35 02/05/17 08:00 97.6 87 18 117/59 (78) 98 02/05/17 08:00 87 02/05/17 06:00 83 02/05/17 04:14 100 35 02/05/17 04:00 98.6 88 18 122/65 (84) 98 02/05/17 04:00 88 02/05/17 04:00 35 02/05/17 02:00 77 02/05/17 01:27 99 35 02/05/17 00:00 35 02/05/17 00:00 82 02/05/17 00:00 98.0 82 19 109/60 (76) 98 02/04/17 22:20 99 35 02/04/17 22:00 80 02/04/17 20:00 35 02/04/17 20:00 97.9 83 19 133/63 (86) 96 02/04/17 20:00 83 02/04/17 19:45 98 35 02/04/17 18:00 85 02/04/17 16:11 96 35 02/04/17 16:00 97.6 92 18 130/60 (83) 96 02/04/17 16:00 35 02/04/17 16:00 92 Intake & Output 02/05/17 02/05/17 06:59 18:59 Intake Total 162 ml Output Total 950 ml Balance -788 ml Intake Oral 0 ml IV Total 162 ml Tube Feeding 0 ml Output Urine Total 500 ml Chest Tube Drainage Total 450 ml # Bowel Movements 0 Physical Exam CONSTITUTIONAL/GENERAL: This is an ill looking male, who appears older than stated age in no acute distress. Intubated on mechanical ventilation, sedated. TUBES/LINES/DRAINS: ETT, NGT, PIV, Right femoral central line; Right femoral A line, PIVs, SCDs. Right pigtail chest tube with moderate amount of serosanguineous output. SKIN: No jaundice, rashes, or lesions. Ecchymoses on upper extremities. Skin tear to left lower extremity. Skin temperature appropriate. Not diaphoretic. HEAD: Atraumatic. Normocephalic. EYES: Pupils equal and round and reactive. No scleral icterus. No injection or drainage. ENT: Nose without bleeding or purulent drainage. Moist oral mucosa. NECK: Trachea midline. Supple, nontender. CARDIOVASCULAR: Regular rate and rhythm.Systolic murmur . No JVD. Peripheral pulses symmetric. RESPIRATORY/CHEST: Symmetric, unlabored respirations. Coarse breath sounds. GASTROINTESTINAL: Abdomen soft, large, round. Active bowel sounds. GENITOURINARY: Without palpable bladder distension. Saxena catheter in place. MUSCULOSKELETAL: Extremities without clubbing, cyanosis. Edema to all 4 extremities. NEUROLOGICAL: Sedated. Not following commands. PSYCHIATRIC: Unable to assess secondary to clinical condition, intubated, sedated. Appears calm. . Diagnostic Tests Laboratory Laboratory Tests Test 02/03/17 03:00 02/03/17 14:20 02/04/17 03:30 02/04/17 16:45 White Blood Count 7.1 TH/MM3 (4.0-11.0) 5.8 TH/MM3 (4.0-11.0) Red Blood Count 3.13 MIL/MM3 (4.50-5.90) 3.06 MIL/MM3 (4.50-5.90) Hemoglobin 9.2 GM/DL (13.0-17.0) 9.1 GM/DL (13.0-17.0) Hematocrit 27.7 % (39.0-51.0) 27.5 % (39.0-51.0) Mean Corpuscular Volume 88.4 FL (80.0-100.0) 89.9 FL (80.0-100.0) Mean Corpuscular Hemoglobin 29.3 PG (27.0-34.0) 29.8 PG (27.0-34.0) Mean Corpuscular Hemoglobin Concent 33.2 % (32.0-36.0) 33.1 % (32.0-36.0) Red Cell Distribution Width 17.7 % (11.6-17.2) 17.3 % (11.6-17.2) Platelet Count 106 TH/MM3 (150-450) 92 TH/MM3 (150-450) Mean Platelet Volume 8.6 FL (7.0-11.0) 9.4 FL (7.0-11.0) Neutrophils (%) (Auto) 78.4 % (16.0-70.0) 87.4 % (16.0-70.0) Lymphocytes (%) (Auto) 13.4 % (9.0-44.0) 7.9 % (9.0-44.0) Monocytes (%) (Auto) 8.1 % (0.0-8.0) 4.7 % (0.0-8.0) Eosinophils (%) (Auto) 0.0 % (0.0-4.0) 0.0 % (0.0-4.0) Basophils (%) (Auto) 0.1 % (0.0-2.0) 0.0 % (0.0-2.0) Neutrophils # (Auto) 5.5 TH/MM3 (1.8-7.7) 5.1 TH/MM3 (1.8-7.7) Lymphocytes # (Auto) 0.9 TH/MM3 (1.0-4.8) 0.5 TH/MM3 (1.0-4.8) Monocytes # (Auto) 0.6 TH/MM3 (0-0.9) 0.3 TH/MM3 (0-0.9) Eosinophils # (Auto) 0.0 TH/MM3 (0-0.4) 0.0 TH/MM3 (0-0.4) Basophils # (Auto) 0.0 TH/MM3 (0-0.2) 0.0 TH/MM3 (0-0.2) CBC Comment AUTO DIFF AUTO DIFF Differential Total Cells Counted 100 Neutrophils % (Manual) 81 % (16-70) Band Neutrophils % 1 % (0-6) Lymphocytes % 9 % (9-44) Monocytes % 8 % (0-8) Neutrophils # (Manual) 5.8 TH/MM3 (1.8-7.7) Nucleated Red Blood Cells 4 /100 WBC (0-0) Differential Comment FINAL DIFF MANUAL AUTO DIFF CONFIRMED Blastocytes 1 % (0-0) Platelet Estimate LOW (NORMAL) LOW (NORMAL) Platelet Morphology Comment NORMAL (NORMAL) NORMAL (NORMAL) Ovalocytes 1+ (NORMAL) Blood Urea Nitrogen 51 MG/DL (7-18) 56 MG/DL (7-18) Creatinine 1.17 MG/DL (0.60-1.30) 0.97 MG/DL (0.60-1.30) Random Glucose 168 MG/DL (74-106) 183 MG/DL (74-106) Total Protein 5.7 GM/DL (6.4-8.2) 5.2 GM/DL (6.4-8.2) Albumin 2.0 GM/DL (3.4-5.0) 1.9 GM/DL (3.4-5.0) Calcium Level 7.8 MG/DL (8.5-10.1) 7.8 MG/DL (8.5-10.1) Phosphorus Level 3.6 MG/DL (2.5-4.9) Magnesium Level 1.9 MG/DL (1.5-2.5) Alkaline Phosphatase 82 U/L (45-117) 72 U/L (45-117) Aspartate Amino Transf (AST/SGOT) 186 U/L (15-37) 87 U/L (15-37) Alanine Aminotransferase (ALT/SGPT) 405 U/L (12-78) 295 U/L (12-78) Total Bilirubin 1.3 MG/DL (0.2-1.0) 0.8 MG/DL (0.2-1.0) Sodium Level 133 MEQ/L (136-145) 135 MEQ/L (136-145) Potassium Level 4.3 MEQ/L (3.5-5.1) 4.0 MEQ/L (3.5-5.1) Chloride Level 96 MEQ/L (98-107) 99 MEQ/L (98-107) Carbon Dioxide Level 29.2 MEQ/L (21.0-32.0) 26.9 MEQ/L (21.0-32.0) Anion Gap 8 MEQ/L (5-15) 9 MEQ/L (5-15) Estimat Glomerular Filtration Rate 64 ML/MIN (>89) 79 ML/MIN (>89) Total Creatine Kinase 52 U/L (39-308) Troponin I 0.20 NG/ML (0.02-0.05) Vancomycin Level Trough 13.0 MCG/ML (5.0-10.0) Pleural Fluid pH 8.5 Pleural Fluid WBC 110 /MM3 (0-10) Pleural Fluid RBC 210 /MM3 (0-0) Pleural Fluid Neutrophils 22 % Pleural Fluid Lymphocytes 60 % Pleural Fluid Monocytes 12 % Pleural Fluid Mesothelial Cells 6 % Pleural Fluid Total Protein 1.2 GM/DL Pleural Fluid LDH 54 U/L Pleural Fluid Glucose 184 MG/DL Test 02/05/17 03:50 White Blood Count 6.2 TH/MM3 (4.0-11.0) Red Blood Count 3.40 MIL/MM3 (4.50-5.90) Hemoglobin 10.2 GM/DL (13.0-17.0) Hematocrit 31.3 % (39.0-51.0) Mean Corpuscular Volume 92.3 FL (80.0-100.0) Mean Corpuscular Hemoglobin 30.0 PG (27.0-34.0) Mean Corpuscular Hemoglobin Concent 32.5 % (32.0-36.0) Red Cell Distribution Width 17.5 % (11.6-17.2) Platelet Count 94 TH/MM3 (150-450) Mean Platelet Volume 9.8 FL (7.0-11.0) Neutrophils (%) (Auto) 84.8 % (16.0-70.0) Lymphocytes (%) (Auto) 8.5 % (9.0-44.0) Monocytes (%) (Auto) 6.5 % (0.0-8.0) Eosinophils (%) (Auto) 0.1 % (0.0-4.0) Basophils (%) (Auto) 0.1 % (0.0-2.0) Neutrophils # (Auto) 5.3 TH/MM3 (1.8-7.7) Lymphocytes # (Auto) 0.5 TH/MM3 (1.0-4.8) Monocytes # (Auto) 0.4 TH/MM3 (0-0.9) Eosinophils # (Auto) 0.0 TH/MM3 (0-0.4) Basophils # (Auto) 0.0 TH/MM3 (0-0.2) CBC Comment AUTO DIFF Differential Comment AUTO DIFF CONFIRMED Platelet Estimate LOW (NORMAL) Platelet Morphology Comment NORMAL (NORMAL) Blood Urea Nitrogen 61 MG/DL (7-18) Creatinine 1.12 MG/DL (0.60-1.30) Random Glucose 193 MG/DL (74-106) Total Protein 5.8 GM/DL (6.4-8.2) Albumin 2.3 GM/DL (3.4-5.0) Calcium Level 8.3 MG/DL (8.5-10.1) Magnesium Level 2.3 MG/DL (1.5-2.5) Alkaline Phosphatase 74 U/L (45-117) Aspartate Amino Transf (AST/SGOT) 47 U/L (15-37) Alanine Aminotransferase (ALT/SGPT) 243 U/L (12-78) Total Bilirubin 0.7 MG/DL (0.2-1.0) Sodium Level 136 MEQ/L (136-145) Potassium Level 4.1 MEQ/L (3.5-5.1) Chloride Level 99 MEQ/L (98-107) Carbon Dioxide Level 26.8 MEQ/L (21.0-32.0) Anion Gap 10 MEQ/L (5-15) Estimat Glomerular Filtration Rate 67 ML/MIN (>89) Result Diagram: 02/05/17 0350 02/05/17 0350 Microbiology Microbiology Date/Time Source Procedure Growth Status 02/04/17 16:45 Fluid Pleural Fluid Fungal Smear - Final NO FUNGAL ELEMENTS SEEN. Resulted 02/04/17 16:45 Fluid Pleural Fluid Fungal Culture Pending Resulted 02/04/17 16:45 Fluid Pleural Fluid Acid Fast Stain Pending Received 02/04/17 16:45 Fluid Pleural Fluid Mycobacterial Culture Pending Received 02/04/17 16:45 Fluid Pleural Fluid Gram Stain - Final Resulted 02/04/17 16:45 Fluid Pleural Fluid Body Fluid Culture - Preliminary NO GROWTH IN 24 HOURS. Resulted Procedures 02/04/17 -right pigtail chest tube 02/03/17 -EGD 02/02/17 Intubated 02/02/17 Right femoral central line placement 02/02/17 Right femoral Arterial line . Assessment and Plan Disease Oriented Problem List: (1) Septic shock (2) PEA (Pulseless electrical activity) (3) Respiratory failure (4) Esophageal carcinoma (5) Acute kidney injury (6) Edema (7) Physical deconditioning (8) Anemia Symptom Scale: (1) Shortness of breath 0-10 Scale: Unable to quantify Comment: Intubated on mechanical ventilation. (2) Pain 0-10 Scale: Unable to quantify Comment: Multifactorial. Currently on fentanyl drip. (3) Debility 0-10 Scale: Unable to quantify Comment: Progressive. Pertinent Non-Medical Issues Psychosocial: Mr La is a 61-year-old male who was born in [place], [place]. Patient moved to [place] at the age of 15. He never attended high school after he moved to [place] nor obtained his GED. 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 No service. Patient is , has 1 daughter. Patient residing with girlfriend Luly Bautista for the past 40 years. Spiritual: The spiritism affiliation. Legal: Advance directives completed. Copy in file. Ethical issues impacting care: Patient unable to participate in medical decision making given clinical condition, intubated/sedated. . Important Contacts Daughter -Mena La Significant although Luly Bautista or . . 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 Patient presented to the ED via EMS 02/02/17 from a halfway for shortness of breath and weakness. Patient sustained PEA arrest, underwent CPR and ACLS drugs with ROS, subsequently intubated and placed on mechanical ventilation. Patient was recently discharged from the [facility] to [facility] on 01/30/17 after hospitalization x 2 months. During hospitalization, his clinical course was complicated by NSTEMI, patient underwent PCI with bare metal stents on 11/30/16. Clinical course further complicated by persistent fever, MSSA bacteremia, worsening sepsis, A. fib with RVR and persistent respiratory failure, intubation and mechanical ventilation x3 times, pericardial effusion requiring pericardiocentesis and pleural effusion with chest tube placement. Patient's overall prognosis is poor given multiple chronic ongoing comorbidities, recent prolonged hospitalization x 2 months with multiple complications, malignancy, malnutrition, most recent PEA arrest and profound physical deconditioning. Patient remains at very high risk for further complications, continued decline and . . Code Status: Full Code Plan * CODE STATUS: Full Code. Risks, benefits and limitations of CPR were readdressed today with significant other Luly. * CAYLA CARE SURROGATE: Patient unable to participating medical decision making given clinical condition, intubated/sedated. Designation of healthcare surrogate completed during prior hospitalization. Patient designated his daughter Mena La AND significant other Luly Bautista as healthcare surrogate decision maker. * GOALS OF CARE: 02/05/17 -Patient's significant other Luly AND pt's daughter Mena electing to continue current aggressive management with hopes of medical extubation to allow patient to participating in medical decision-making. Family hopeful that patient will regain medical decision-making capacity to readdress goals of care. Family made aware that patient's clinical condition remains critical; high risk for further complications, continue decline and . Copy of pt's living will in file, patient electing NO tracheostomy. * SYMPTOMS: ==Shortness of breath, multifactorial. Currently intubated on mechanical ventilation. = Pain, secondary to ET tube, lines, bedrest, recent prolonged hospitalization. Currently on fentanyl drip. = Debility, secondary to chronic comorbidities, acute events, present prolonged hospitalization. Likely to continue to worsen. * Case discussed with bedside RN Pinky. * Spiritual services offered and accepted. Referral made. * Ongoing emotional support and active listening provided to patient's significant other Luly and daughter Mena. There were both encouraged to continue goals of care conversation. * Palliative care contact information has been provided to patient's family. Family receptive to palliative care follow-ups. * Palliative care will continue to follow-up for further clarifications goals of care patient's clinical condition continues to evolve. . Time Spent Total Floor Time (mins): 31 (Total time to include review of medical records, physical exam, telephone conversation with patient's significant other Luly and case discussion with bedside RN Pinky.) >50% Counseling/Coord of Care: Yes Attestation To help prompt me to consider important information that might be impacting today's encounter and assessment, information from prior notes written by myself or my colleagues may have been "brought forward" into today's note. My signature on this note, however, is an attestation that I personally performed the exam, history, and/or decision-making noted today, and, unless otherwise indicated, the interactions with patient, family, and staff as well as the review of records all occurred today. I also attest that the listed assessment and stated plan reflect my best clinical judgment today based on the combination of historical information, prior notes, and today's exam/ interactions. When time spent is documented, it refers only to time spent today by the signer, or if indicated, combined time spent today by collaborating physician/nurse practitioner. Ida Alston Feb 05, 2017 14:37
--- NOTE | 2017-02-05 16:27 | HHI.CCPN ---
Subjective Remarks/Hospital Course The patient is a 61-year-old male with multiple comorbidities which include esophageal adenocarcinoma status post stent placement in December, coronary artery disease with previous stent placement in the proximal circumflex, squamous cell carcinoma of the skin and anemia and a history of atrial flutter. The patient presented to the [facility] Emergency Department from a local residential for hypoxemia and severe respiratory distress. On arrival to the emergency room, the patient was hypotensive with a systolic blood pressure in the 80s, bradycardic with heart rate in the 50s and had a temperature of 97.6. Due to severe respiratory distress, he was subsequently intubated and placed on full mechanical ventilation. In addition, Versed drip was initiated. In the emergency room, the patient was found to have wide complex tachycardia and his laboratory data showed severe hyperkalemia with a potassium level of 6.9 and lactic acidosis with a lactic acid level of 12.5. The patient went into PEA arrest in the emergency room and he received epinephrine, bicarb with successful return of spontaneous circulation. He received approximately 1.5 liters of crystalloids and was started on Levophed drip which is currently 20 mics. For hyperkalemia, the patient was given 2 ampules of bicarb, calcium gluconate and 10 units of IV insulin D50 and placed on bicarb drip. A chest x-ray post- intubation showed ET tube above the elizabeth, bilateral pleural effusions with consolidation and atelectasis at the bases right greater than left. An ABG post intubation appears venous blood gas which showed a pH of 7.13, CO2 28, pAO2 44, bicarb of 9, saturation 53% with a base excess of -18.6. This was on assist control ventilation rate of 16, tidal volume 550, PEEP of 5 and 100% FIO2. The patient is scheduled for CT scan of the abdomen and pelvis along with CT scan of the chest. He was discharged from the hospital yesterday after he was admitted on December 24. On his previous admission, the patient had an Pseudomonas pneumoniae. In addition, he had MSSA bacteremia back in November. 02/01 Patient remains intubated with versed and Fentnayl drips. Levophed down 12 mics from 20 and on Vasopressin 0.04 mics. Lactic acid is trending down 2.9 this morning from 12.5 on arrival. On Bicarb drip. Afebrile. 02/02 No events overnight. Sedated with Versed and Fentanyl drips. Levophed down 6 mics and on Vasopressin 0.04. Renal function is improving with Cr: 1.17 from 1.86. Off Bicarb drip. 02/03 Patient was in SVT last night HR 204 given Adenosine 6mg+12mg then cardioverted with 50J now in NSR HR 70's. Sedated with Versed and Fentanyl drips. Given 2units PRBC overnight Hgb 9.2 this morning. Off all pressors. For EGD today. 02/04: Remains intubated sedated. Wakes up easily follows commands. Remains off all pressors platelet count decreasing 92 today. Hemoglobin stable. EGD esophageal mass/known Ca in the mid esophagus this was friable and when touched was oozing blood, an esophageal stent this was in good position and covering most of the mass but there is overgrowth more proximal to the stent does not appear to be occluding the esophagus Subjective 02/05: Afebrile. Minimal sedation. Hemoglobin remained stable. OG tube replaced by RN this AM. Failed CPAP trials after 2 minutes. Objective Vital Signs Date Time Temp Pulse Resp B/P (MAP) Pulse Ox O2 Delivery O2 Flow Rate FiO2 02/05/17 14:52 99 35 02/05/17 14:00 92 02/05/17 12:00 97.5 18 100/52 (68) Intake and Output 02/05/17 02/05/17 02/06/17 08:00 16:00 00:00 Intake Total 162 ml 100 ml Output Total 950 ml Balance -788 ml 100 ml Result Diagram: 02/05/17 0350 02/05/17 0350 Other Results Microbiology Date/Time Source Procedure Growth Status 01/31/17 08:35 Blood Peripheral Aerobic Blood Culture - Final NO GROWTH IN 5 DAYS Complete 01/31/17 08:35 Blood Peripheral Anaerobic Blood Culture - Final NO GROWTH IN 5 DAYS Complete 02/04/17 16:45 Fluid Pleural Fluid Fungal Smear - Final NO FUNGAL ELEMENTS SEEN. Resulted 02/04/17 16:45 Fluid Pleural Fluid Fungal Culture Pending Resulted 01/31/17 21:40 Sputum Endotracheal Gram Stain - Final Complete 01/31/17 21:40 Sputum Endotracheal Sputum Culture - Final HEAVY GROWTH NORMAL RESPIRATORY EDE Complete 01/31/17 13:35 Urine Catheterized Urine Legionella Antigen - Final PRESUMPTIVE NEGATIVE FOR LEGIONELLA P... Complete 01/31/17 13:35 Urine Catheterized Urine Streptococcus pneumoniae Antigen (M - Final PRESUMPTIVE NEGATIVE FOR STREPTOCOCCU... Complete Imaging Last Impressions Chest X-Ray 02/05/17 0600 Signed Impressions: Service Date/Time: , February 05, 2017 04:19 - CONCLUSION: 1. Bibasilar pulmonary infiltrates more pronounced on the left with a small effusion. These are unchanged. 2. Right thoracostomy tube without pneumothorax. 3. Mild cardiomegaly. Kulwant Cowart Jr., MD Liver Ultrasound 02/01/17 0000 Signed Impressions: Service Date/Time: Wednesday, February 01, 2017 16:32 - CONCLUSION: 1. Cirrhotic appearing liver with trace ascites in the pelvis. 2. Gallbladder wall thickening and mild pericholecystic fluid without gallstones. These findings are routinely seen in the setting of cirrhosis. If there is significant clinical concern regarding cholecystitis, HIDA scan may be performed. 3. Bilateral pleural effusions. Escobar Joiner MD Chest CT 01/31/17 0000 Signed Impressions: Service Date/Time: Tuesday, January 31, 2017 12:52 - CONCLUSION: 1. Moderate bilateral pleural effusions with associated bibasilar airspace consolidation. 2. Mild patchy airspace disease in the lingula and right middle lobe. 3. Diffuse soft tissue prominence of the mid to distal esophagus with esophageal stent in place consistent with history of esophageal CA. Administered contrast extends to the proximal esophagus. 4. ETT in good position. NGT just be in the GE junction. 5. Prominent coronary artery calcifications. Escobar Joiner MD Abdomen/Pelvis CT 01/31/17 0000 Signed Impressions: Service Date/Time: Tuesday, January 31, 2017 12:52 - CONCLUSION: 1. No definite CT findings to explain patient's lactic acidosis. Specifically, no evidence for bowel infarction or perforation. 2. Moderate bilateral pleural effusions with associated bilateral lower lobe airspace consolidation. 3. Diffusely prominent distal esophagus with distal esophageal stent in place. NGT courses through the stent with tip just beyond the GE junction. 4. Cirrhotic appearing liver without evidence for significant ascites or focal drainable fluid collection. Escobar Joiner MD Objective Remarks GENERAL: 61-year-old male, critically ill currently orotracheally intubated SKIN: Warm and dry. Positive sacral decubitus ulcer stage II HEAD: Normocephalic. EYES: No scleral icterus. No injection or drainage. NECK: Supple, trachea midline. No JVD or lymphadenopathy. CARDIOVASCULAR: Regular rate and rhythm without murmurs, gallops, or rubs. RESPIRATORY: Breath sounds equal bilaterally. Coarse rhonchi appreciated bilaterally. Right chest tube is clean dry and intact. -1948 SS GASTROINTESTINAL: Abdomen soft, non-tender, nondistended. MUSCULOSKELETAL: 2+ bilateral lower extremity edema Neuro: Intubated, sedated. Wakes up easily follows commands x4 times extremity agitated A/P Assessment and Plan Plan Neuro/Psych: On Fentanyl drip at 100 grams an hour and Versed drips at 3 mg an hour for sedation. Goal of RA SS -2 Daily sedation vacation. Pulm: Acute hypoxemic respiratory failure Right pleural effusion Continue with vent support and maintain saturations>92%. PRVC 14/500/05/22/39 Ventilator bundle Albuterol/ipratropium aerosols every 4 hours with albuterol every 2 hours. Dyspnea hydrocortisone 50mg Q12 SBT daily as michael. Lasted [address] chest: Moderate bilateral pleural effusions with associated bibasilar airspace consolidation. Mild patchy airspace disease in the lingula and right middle lobe. Esophageal CA. -1948 SS -40 cm H2O chest tube CV: Severe aortic regurgitation History of coronary disease status post stent circumflex Coronary artery disease Dyslipidemia Hypertension Off all pressors monitor HR and BP keep MAP>65mmHg Patient went into SVT 02/02 night given Adenosine and was cardioverted with 50J now in NSR HR 70's. Continue with ASA 81 mg daily and clopidogrel 75 mg daily- Discussed with Dr. Tejeda Echo from 01/07 showed EF 60% to 65%. Echo 02/01 revealed EF 40-45%. Bilateral atrial enlargement. LVH. Holding atorvastatin 40 mg by mouth daily in light of elevated LFTs. Holding metoprolol 25 mg every 8 hours, amiodarone 10 mg daily and diltiazem 90 mg every 6 hours for atrial fibrillation. Resume when clinically indicated Evaluation by CT surgery for aVR Renal/: Monitor renal function, intakes and outputs and avoid nephrotoxins. 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 Gallbladder wall thickening and mild pericholecystic fluid without gallstone hepatitis profile : Hep C reactive ab. Genotype and viral load pending on pantoprazole 40 mg IV Q12 for GI prophylaxis. CT abdomen/pelvis: no bowel infarction or perforation. bilateral lower lobe airspace consolidation. Diffusely prominent distal esophagus with distal esophageal stent in place. EGD By Dr. Tejeda 02/03 esophageal Ca in the mid esophagus friable oozing blood, esophageal stent in good position and covering most of the mass but there is overgrowth more proximal to the stent does not appear to be occluding the esophagus Will give Relistor and glycerin suppository for bowel movement ID; Continue with abx (cefepime) ID is following Monitor for signs of infection which include fever and WBCs. Follow up on blood, sputum, urine cultures: NGTD Strep pneumoniae and Legionella urinary antigen negative. 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 S/P mohs surgery September 2015 Normocytic anemia Thrombocytopenia Status post parotidectomy and radical neck dissection in September 2016. Monitor CBC, s/p transfusion 2units PRBC 02/02 overnight Hgb 9.1 this morning Oncology consulted ( patient known to him) patient is on chemo and XRT for his esophageal ca. not a candidate due to underlying critical illness Endo: Diabetes mellitus SSI with Accu-Chek q. 4 hours for glycemic control. On Levemir 40 units daily metformin 1000 mg twice a day at home. GI prophylaxis with pantoprazole 40 mg IV Q12 DVT prophylaxis with SCDs. No chemical prophylaxis due to anemia requiring blood transfusion Lines: Right Femoral Central line placed by ED 01/31, Right femoral Art Line placed 01/31. DC both 02/04/17 Palliative care is following of care CCT 30 mins Hubert Yoder MD Feb 05, 2017 16:27
[2017-02-05] MEDS ORDERED: GLYCERIN ADULT 2 GM SUPP RECTAL ONE (17:00)
[2017-02-05] MEDS ORDERED: MINERAL OIL EMULSION 55% PO ONE (17:00)
[2017-02-05] MEDS ORDERED: METHYLNALTREXONE BROMIDE 12 MG/0.6 ML VIAL SQ ONE (17:00)
[2017-02-05] MEDS ORDERED: SODIUM CHLOR 0.45% 500 ML INJ 500 ML IV ONE (17:00)
[2017-02-05] MEDS: fentaNYL DRIP 250 ML IV PRN (17:03)
[2017-02-05] MEDS: MIDAZOLAM 100 MG/100 ML INJ 100 ML IV PRN (17:05)
[2017-02-05] MEDS ORDERED: RESP: ALBUTEROL 2.5 MG/3 ML NEB (PRN) INH (17:15)
[2017-02-05] MEDS ORDERED: MINERAL OIL LIQUID 30 ML CUP PO ONE (18:30)
[2017-02-05] MEDS: CHLORHEXIDINE GLUCONATE 2 % 1 PACK (2 CLOTHS) TOP SCH (21:38)
[2017-02-05] MEDS: RESP: ALBUTEROL 2.5 MG/IPRATROPIUM 0.5 MG NEB (SCH) INH (23:20)
[2017-02-06] VITALS (18 sets, daily range): BP systolic 106–120; BP diastolic 53–60; PULSE 79–96; RESP 18; TEMP 98–98.6; O2SAT 99–100
[2017-02-06] MEDS: CEFEPIME INJ 2,000 MG in SODIUM CHLORIDE 0.9% INJ 100 ML IV SCH ×2 (02:00→15:20)
[2017-02-06] MEDS: INSULIN NovoLIN REGULAR SUPPLEMENTAL SCALE SQ SCH ×6 (02:00→22:00)
[2017-02-06] MEDS: RESP: ALBUTEROL 2.5 MG/IPRATROPIUM 0.5 MG NEB (SCH) INH ×4 (03:32→21:02)
[2017-02-06] MEDS: fentaNYL DRIP 250 ML IV PRN ×3 (03:51→19:23)
[2017-02-06] MEDS: MIDAZOLAM 100 MG/100 ML INJ 100 ML IV PRN ×3 (03:52→19:23)
[2017-02-06] MEDS: DEXT 5%-NACL 0.9% 1000 ML INJ 1,000 ML IV SCH (06:00)
[2017-02-06 06:48] LABS: AUTOMATED NEUTROPHIL # 5.3 TH/MM3 (1.8-7.7); BASOPHIL % 0.1 % (0.0-2.0); HEMATOCRIT 31.3 % (39.0-51.0); LYMPH % 10.5 % (9.0-44.0); LYMPHOCYTE # 0.7 TH/MM3 (1.0-4.8); MEAN CELL VOLUME 91.3 FL (80.0-100.0); MEAN CORPUSCULAR HEMOGLOBIN 29.4 PG (27.0-34.0); MEAN CORPUSCULAR HGB CONC 32.2 % (32.0-36.0); MONO % 7.4 % (0.0-8.0); PLATELET COUNT 95 TH/MM3 (150-450); RED BLOOD COUNT 3.43 MIL/MM3 (4.50-5.90); RED CELL DISTRIBUTION WIDTH 17.5 % (11.6-17.2); WHITE BLOOD COUNT 6.5 TH/MM3 (4.0-11.0)
[2017-02-06 06:57] LABS: HEMO FLAGS AUTO DIFF
[2017-02-06 07:13] LABS: ANION GAP 8 MEQ/L (5-15); AST (GOT) 30 U/L (15-37); BLOOD UREA NITROGEN 59 MG/DL (7-18); CHLORIDE 101 MEQ/L (98-107); GLOMERULAR FILTRATION RATE 84 ML/MIN (>89); MAGNESIUM 2.3 MG/DL (1.5-2.5); POTASSIUM 3.9 MEQ/L (3.5-5.1); SODIUM (NA) 137 MEQ/L (136-145)
[2017-02-06 07:14] LABS: ALT (GPT) 161 U/L (12-78)
--- NOTE | 2017-02-06 07:14 | RADRPT ---
EXAM DATE/TIME: 02/06/2017 04:30 [place] COMPARISON: CHEST SINGLE AP, February 05, 2017, 4:19. INDICATIONS : Evaluate for respiratory failure. MEDICAL HISTORY : Diabetes mellitus type II. Carcinoma, esophageal. Squamous cell carcinoma. SURGICAL HISTORY : Appendectomy. Coronary artery stent. ENCOUNTER: Subsequent ACUITY: 2 months PAIN SCORE: Non-responsive. LOCATION: chest FINDINGS: Moderate patient rotation towards the left. Right chest catheter remains projected in the lower late ral right chest. ET tube tip lobe of the elizabeth. Gastric tube in place; the distal aspect of the ga stric tube is not well-seen and cannot confirm that it passes into the stomach. There is prominent c onsolidation in the left mid and lower lung causing loss of delineation of the entire left hemidiaphr agm; stable from prior. There are new patchy infiltrates in the lower lateral right lung without con solidation. CONCLUSION: 1. Persistent prominent consolidation left mid and lower lung. 2. No patchy infiltrates in the lower lateral right lung without consolidation. 3. Interval placement of gastric tube; cannot confirm that the tube passes into the stomach due to pa tient positioning and technical factors. Kulwant Gupta MD on February 06, 2017 at 7:11 Board Certified Radiologist. This report was verified electronically.
[2017-02-06 07:16] LABS: ALKALINE PHOSPHATASE 72 U/L (45-117); TOTAL BILIRUBIN ADULT 0.8 MG/DL (0.2-1.0)
[2017-02-06 08:08] LABS: OVALOCYTES 1+ (NORMAL); PLATELET ESTIMATE SMEAR LOW (NORMAL); PLATELET MORPHOLOGY NORMAL (NORMAL); SCAN/DIFF AUTO DIFF CONFIRMED
[2017-02-06] MEDS: HYDROCORTISONE SOD SUCCINATE 100 MG VIAL IV PUSH SCH ×2 (08:51→19:29)
[2017-02-06] MEDS: DOCUSATE SODIUM 50 MG/SENNA 8.6 MG TAB PO SCH ×2 (08:51→19:30)
[2017-02-06] MEDS: PANTOPRAZOLE SODIUM 40 MG VIAL IV PUSH SCH ×2 (08:51→19:29)
[2017-02-06] MEDS: ASPIRIN EC 81 MG TABEC PO SCH (08:51)
[2017-02-06] MEDS: CLOPIDOGREL 75 MG TAB PO SCH (08:52)
[2017-02-06] MEDS: COLLAGENASE OINT 30 GM TUBE TOPICAL SCH (08:53)
--- NOTE | 2017-02-06 08:56 | HHI.IDPN ---
Subjective Subjective Remarks Chart reviewed Patient known to me from his previous admissions He has known head and neck CA, and esophageal mass, S/P esophageal stent during his last hospitalization He was treated for high grade MSSA bacteremia, due to infected port Port removed and he completed Abx Rx with Ancef on Jan 15 He was also treated for PSAE PNA during his last admission He also had evidence of serositis and had pleural effusions and pericardial effusions that were both drained, C/S negative (but he was on Abx), cytology negative for malignancy He was D/C to SNF 01/30 and readmitted 01/31 Notes reviewed D/W RN Off pressors On the vent, sedated, but opens eyes briefly when stimulated Not tolerate weaning - CPAP Remains in NSR Has CT R side - fluid is transudative Echo with multiple valvular insufficiency including severe AI CTS evaluation noted Antibiotics cefepime Lines PIV Past Medical History Reviewed Allergies: Coded Allergies: penicillin G (Unverified Allergy, Mild, Hives, 12/30/16) Objective . Vital Signs Date Time Temp Pulse Resp B/P (MAP) Pulse Ox O2 Delivery O2 Flow Rate FiO2 02/06/17 08:09 99 35 02/06/17 06:00 96 02/06/17 04:42 100 35 02/06/17 04:00 98.3 82 18 107/53 (71) 99 02/06/17 04:00 35 02/06/17 04:00 81 02/06/17 02:00 82 02/06/17 01:11 99 35 02/06/17 00:00 35 02/06/17 00:00 91 02/06/17 00:00 98.4 90 18 120/60 (80) 99 02/05/17 22:04 99 35 02/05/17 22:00 93 02/05/17 20:00 100 02/05/17 20:00 98 18 145/53 (83) 98 02/05/17 20:00 35 02/05/17 19:26 99 35 02/05/17 18:00 92 02/05/17 16:00 35 02/05/17 16:00 80 02/05/17 16:00 98.7 80 18 98/50 (66) 99 02/05/17 14:52 99 35 02/05/17 14:00 92 02/05/17 12:30 99 35 02/05/17 12:00 80 02/05/17 12:00 97.5 80 18 100/52 (68) 99 02/05/17 12:00 35 02/05/17 10:00 90 02/05/17 08:58 99 35 02/05/17 08:58 35 . Laboratory Tests Test 02/05/17 03:50 02/06/17 06:31 White Blood Count 6.2 TH/MM3 6.5 TH/MM3 Red Blood Count 3.40 MIL/MM3 3.43 MIL/MM3 Hemoglobin 10.2 GM/DL 10.1 GM/DL Hematocrit 31.3 % 31.3 % Mean Corpuscular Volume 92.3 FL 91.3 FL Mean Corpuscular Hemoglobin 30.0 PG 29.4 PG Mean Corpuscular Hemoglobin Concent 32.5 % 32.2 % Red Cell Distribution Width 17.5 % 17.5 % Platelet Count 94 TH/MM3 95 TH/MM3 Mean Platelet Volume 9.8 FL 8.9 FL Neutrophils (%) (Auto) 84.8 % 82.0 % Lymphocytes (%) (Auto) 8.5 % 10.5 % Monocytes (%) (Auto) 6.5 % 7.4 % Eosinophils (%) (Auto) 0.1 % 0.0 % Basophils (%) (Auto) 0.1 % 0.1 % Neutrophils # (Auto) 5.3 TH/MM3 5.3 TH/MM3 Lymphocytes # (Auto) 0.5 TH/MM3 0.7 TH/MM3 Monocytes # (Auto) 0.4 TH/MM3 0.5 TH/MM3 Eosinophils # (Auto) 0.0 TH/MM3 0.0 TH/MM3 Basophils # (Auto) 0.0 TH/MM3 0.0 TH/MM3 CBC Comment AUTO DIFF AUTO DIFF Differential Comment AUTO DIFF CONFIRMED AUTO DIFF CONFIRMED Platelet Estimate LOW LOW Platelet Morphology Comment NORMAL NORMAL Ovalocytes 1+ Laboratory Tests Test 02/05/17 03:50 02/06/17 06:31 Blood Urea Nitrogen 61 MG/DL 59 MG/DL Creatinine 1.12 MG/DL 0.92 MG/DL Random Glucose 193 MG/DL 218 MG/DL Total Protein 5.8 GM/DL 5.5 GM/DL Albumin 2.3 GM/DL 2.4 GM/DL Calcium Level 8.3 MG/DL 8.4 MG/DL Magnesium Level 2.3 MG/DL 2.3 MG/DL Alkaline Phosphatase 74 U/L 72 U/L Aspartate Amino Transf (AST/SGOT) 47 U/L 30 U/L Alanine Aminotransferase (ALT/SGPT) 243 U/L 161 U/L Total Bilirubin 0.7 MG/DL 0.8 MG/DL Sodium Level 136 MEQ/L 137 MEQ/L Potassium Level 4.1 MEQ/L 3.9 MEQ/L Chloride Level 99 MEQ/L 101 MEQ/L Carbon Dioxide Level 26.8 MEQ/L 28.0 MEQ/L Anion Gap 10 MEQ/L 8 MEQ/L Estimat Glomerular Filtration Rate 67 ML/MIN 84 ML/MIN Phosphorus Level 2.7 MG/DL Microbiology Date/Time Source Procedure Growth Status 02/04/17 16:45 Fluid Pleural Fluid Fungal Smear - Final NO FUNGAL ELEMENTS SEEN. Resulted 02/04/17 16:45 Fluid Pleural Fluid Fungal Culture Pending Resulted 02/04/17 16:45 Fluid Pleural Fluid Acid Fast Stain Pending Received 02/04/17 16:45 Fluid Pleural Fluid Mycobacterial Culture Pending Received 02/04/17 16:45 Fluid Pleural Fluid Gram Stain - Final Resulted 02/04/17 16:45 Fluid Pleural Fluid Body Fluid Culture - Preliminary NO GROWTH IN 24 HOURS. Resulted Imaging Chest X-Ray 02/06/17 0600 Signed Impressions: Service Date/Time: Monday, February 06, 2017 04:30 - CONCLUSION: 1. Persistent prominent consolidation left mid and lower lung. 2. No patchy infiltrates in the lower lateral right lung without consolidation. 3. Interval placement of gastric tube; cannot confirm that the tube passes into the stomach due to patient positioning and technical factors. Kulwant Gupta MD Chest X-Ray 02/05/17 0600 Signed Impressions: Service Date/Time: January 04:19 - CONCLUSION: 1. Bibasilar pulmonary infiltrates more pronounced on the left with a small effusion. These are unchanged. 2. Right thoracostomy tube without pneumothorax. 3. Mild cardiomegaly. Kulwant Cowart Jr., MD Chest X-Ray 02/04/17 0000 Signed Impressions: Service Date/Time: Saturday, February 04, 2017 17:06 - CONCLUSION: Small bore chest tube in place with reduction in the amount of effusion. Everett Pollock MD FACR Chest X-Ray 02/04/17 0000 Signed Impressions: Service Date/Time: Saturday, February 04, 2017 04:31 - CONCLUSION: Unchanged exam with bilateral pleural effusions and bibasilar pulmonary infiltrates. Kulwant Cowart Jr., MD Chest X-Ray 02/02/17 0000 Signed Impressions: Service Date/Time: Thursday, February 02, 2017 07:55 - CONCLUSION: Slow interval improvement. Supportive apparatus good position. Everett Pollock MD FACR Liver Ultrasound 02/01/17 0000 Signed Impressions: Service Date/Time: Wednesday, February 01, 2017 16:32 - CONCLUSION: 1. Cirrhotic appearing liver with trace ascites in the pelvis. 2. Gallbladder wall thickening and mild pericholecystic fluid without gallstones. These findings are routinely seen in the setting of cirrhosis. If there is significant clinical concern regarding cholecystitis, HIDA scan may be performed. 3. Bilateral pleural effusions. Escobar Joiner MD Chest X-Ray 01/31/17 0828 Signed Impressions: Service Date/Time: Tuesday, January 31, 2017 10:37 - CONCLUSION: 1. ET tube in good position. 2. Clinically. 3. Bilateral pleural effusions with partial right. 4. Consolidation/atelectasis at the bases being worse on the right. Washington Chou MD Chest CT 01/31/17 0000 Signed Impressions: Service Date/Time: Tuesday, January 31, 2017 12:52 - CONCLUSION: 1. Moderate bilateral pleural effusions with associated bibasilar airspace consolidation. 2. Mild patchy airspace disease in the lingula and right middle lobe. 3. Diffuse soft tissue prominence of the mid to distal esophagus with esophageal stent in place consistent with history of esophageal CA. Administered contrast extends to the proximal esophagus. 4. ETT in good position. NGT just be in the GE junction. 5. Prominent coronary artery calcifications. Escobar Joiner MD Abdomen/Pelvis CT 01/31/17 0000 Signed Impressions: Service Date/Time: Tuesday, January 31, 2017 12:52 - CONCLUSION: 1. No definite CT findings to explain patient's lactic acidosis. Specifically, no evidence for bowel infarction or perforation. 2. Moderate bilateral pleural effusions with associated bilateral lower lobe airspace consolidation. 3. Diffusely prominent distal esophagus with distal esophageal stent in place. NGT courses through the stent with tip just beyond the GE junction. 4. Cirrhotic appearing liver without evidence for significant ascites or focal drainable fluid collection. Escobar Joiner MD Physical Exam GENERAL: Sedated, on the vent, not in distress SKIN: Warm and dry, no rash, edematous. No jaundice. NO embolic lesions HEAD: Atraumatic. Normocephalic. EYES: Pupils equal and round and reactive. NO petechia or hemorrhage. No scleral icterus. No injection or drainage. . ENT: Nose without bleeding or purulent drainage. Orally intubated NECK: Trachea midline. Supple, nontender. CARDIOVASCULAR: Regular rate and rhythm. Harsh systolic murmur at base RESPIRATORY/CHEST: Symmetric, respirations. Coarse BS bilaterally, with some rhonchi on L, decreased at bases. CT R with serosanguineous fluid GASTROINTESTINAL: Abdomen soft, non-tender, nondistended. . No guarding. Bowel sounds present. GENITOURINARY: Saxena catheter in place with yellow urine MUSCULOSKELETAL: Extremities without clubbing, cyanosis. Has edema of hands and feet, some improvement. No mottling or clubbing. NEUROLOGICAL: Sedated PSYCHIATRIC: unable to assess LINE: NO evidence of infection Assessment & Plan Remarks IMPRESSION Shock, sepsis, lactic acidosis, leukocytosis > 22K on presentation, resolved - his lactic acidemia improved - source? lung, UA with some pyuria Respiratory failure, ?PNA, plus CHF - sputum with normal adama Cardiomyopathy with severe AI, mod MR and TR Recent Rx for MSSA sepsis Recent Rx PSAE PPNA Known head and neck CA Esophageal CA, S/P stent Recent workup for pleural and pericardial effusions, no malignancy, (+) inflammation PCN allery but tolerated Cephalosporins PLAN Continue cefepime - give 7 days (end date 02/07) Weaning per CCM Monitor progress Patient still full code Palliative medicine evaluating goals of care D/W Carola Dick MD Feb 06, 2017 08:56
--- NOTE | 2017-02-06 11:32 | HHI.HCPN ---
Reason for visit a. To assist with evaluation and management of symptoms including: Shortness of breath, Debility. b. To assist medical decision maker(s) with: better understanding of current medical conditions; weighing benefits/burdens of medical treatment options; making medical treatment decisions. . 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, diabetes mellitus type 2, CAD, dyslipidemia and hypertension. Patient presented to the ED via EMS 02/02/17 from a long term for shortness of breath and weakness. Patient sustained PEA arrest, underwent CPR and ACLS drugs with ROS, subsequently intubated and placed on mechanical ventilation. Patient was recently discharged from the [facility] on 01/30/17 after hospitalization x 2 months. During hospitalization, his clinical course was complicated by NSTEMI, patient underwent PCI with bare metal stents on 11/30/16. Clinical course further complicated by persistent fever, MSSA bacteremia, worsening sepsis, A. fib with RVR and persistent respiratory failure, intubation and mechanical ventilation x3 times, pericardial effusion requiring pericardiocentesis and pleural effusion with chest tube placement. Palliative care consulted for further clarifications of goals of care given overall poor prognosis. Patient seen in ICU, intubated, sedated on fentanyl and Versed. Vent settings PRVC/AC 18/5/35%. He opened his eyes to stimulation but fell right back to sleep. He has not been tolerating CPAP trials. Per critical care progress notes. An esophageal mass was found in the mid esophagus in a patient with known esophageal cancer and the mass was found to be friable and oozing blood when touched. An esophageal stent covered most of this mass overgrowth was noted more proximal to the stent not currently occluding the esophagus. Per my discussion with the RN there is concern that if the patient is extubated he will suffer respiratory compromise from bleeding from the friable esophageal mass. The patient himself has clearly declined any tracheostomy prior to his intubation. Treatment options are limited. Previous suggestions have included compassionate withdrawal from ventilator support. He has joint healthcare surrogates, Luly Bautista, his longtime girlfriend who is currently favoring continuing aggressive care and Ben La, his daughter who is favoring comfort care. In this interim, oncology states that treatment cannot be initiated until patient's acute issues resolve and during that time cancer will likely progress if treatment is not able to be initiated soon. CV surgery has been consulted to evaluate possible aortic valve replacement due to his severe aortic stenosis however given the multiple comorbidities and risk of bleeding with extubation, CV surgery has declined aortic valve repair. His surgical risk is very high. Case discussed with bedside RN Pinky. . Family/friend interactions 11:00 a.m.-contacted girlfriend, Luly Bautista, by phone to arrange family meeting later today. Contact information provided. She will call me when she arrives at the hospital and attempts will be made to contact the daughter for a joint family meeting to discuss prognosis and treatment options. 3:30 PM-received return call from girlfriend, Luly Bautista, and discussed Mr. La's condition and Dr. Yoder's opinion that any attempt to extubate him would cause bleeding. Dr. Yoder noted friable tissue in the esophagus which bled with the slightest touch and concern is for patient comfort in the case of esophageal bleeding post extubation. Mr. La himself had previously declined tracheostomy, stating he would not want any tubes in his neck. He was reintubated 01/31 and is currently post intubation day 6. There is concern that leaving him intubated to long would result in erosion and increase the risk of bleeding and further complications, tracheostomy has been declined by the patient and extubation is felt to surely result in esophageal bleeding and patient discomfort. Luly stated that she did not want him to have any discomfort and if his daughter, Ben, agreed, she would be willing to not resuscitate him in case of cardiac arrest, as it would likely cause him more discomfort and not resolve the current dilemma of bleeding post extubation. 4 PM-contacted the patient's daughter, Ben, and gave the same information given to Luly Bautista. She was also in agreement that cardiopulmonary resuscitation would be likely to cause the patient more discomfort without any substantial benefit, given the esophageal bleeding concern. She also agreed with DO NOT RESUSCITATE status and order for DNR was entered as requested. Further discussion was held with both of a possible transfer to a hospice care center while still intubated to extubate for compassionate withdrawal with adequate medical support to manage symptoms. Both are planning to discuss this option over the weekend and will readdress Thursday to answer any potential questions and move towards resolution. . Advance Directives Living Will: Copy in medical record Health Care Surrogate: Copy in medical record Durable Power of Campus Chaplain: Never completed Advance Directive Specifics Date completed: HCS completed 12/25/16 Living Will completed 01/07/17. . Health Care Surrogate(s): This information of healthcare surrogate and filed. Patient designated his daughter Ben La AND girlfriend Luly Bautista as HCS. . Documented care wishes: Patient electing that life/prolonging procedures be withheld or withdrawn in the setting of persistent vegetative state. Patient electing no tracheostomy. . Significant change in goals: After discussion with both healthcare surrogates today, they determined it would be in the patient's best interest to make him a DO NOT RESUSCITATE status as it would not Objective Vital Signs Date Time Temp Pulse Resp B/P (MAP) Pulse Ox O2 Delivery O2 Flow Rate FiO2 02/06/17 08:09 99 35 02/06/17 08:00 35 02/06/17 06:00 96 02/06/17 04:42 100 35 02/06/17 04:00 98.3 82 18 107/53 (71) 99 02/06/17 04:00 35 02/06/17 04:00 81 02/06/17 02:00 82 02/06/17 01:11 99 35 02/06/17 00:00 35 02/06/17 00:00 91 02/06/17 00:00 98.4 90 18 120/60 (80) 99 02/05/17 22:04 99 35 02/05/17 22:00 93 02/05/17 20:00 100 02/05/17 20:00 98 18 145/53 (83) 98 02/05/17 20:00 35 02/05/17 19:26 99 35 02/05/17 18:00 92 02/05/17 16:00 35 02/05/17 16:00 80 02/05/17 16:00 98.7 80 18 98/50 (66) 99 02/05/17 14:52 99 35 02/05/17 14:00 92 02/05/17 12:30 99 35 02/05/17 12:00 80 02/05/17 12:00 97.5 80 18 100/52 (68) 99 02/05/17 12:00 35 Intake & Output 02/06/17 02/06/17 07:00 19:00 Intake Total 700 ml 255 ml Balance 700 ml 255 ml Intake Oral 700 ml IV Total 255 ml # Voids 4 # Bowel Movements 0 Physical Exam CONSTITUTIONAL/GENERAL: This is an ill looking male, who appears older than stated age in no acute distress. Intubated on mechanical ventilation, sedated, arousable briefly to stimuli. TUBES/LINES/DRAINS: ETT, NGT, PIV, Right femoral central line; Right femoral A line, PIVs, SCDs. Right pigtail chest tube with moderate amount of serosanguineous output, (450 mL) overnight. SKIN: No jaundice, rashes, or lesions. Ecchymoses on upper extremities. Skin tear to left lower extremity. Skin temperature appropriate. Not diaphoretic. NECK: Trachea midline. Supple, no JVD. CARDIOVASCULAR: Regular rate and rhythm. 2/6 high-pitched systolic murmur. Pulses symmetric. RESPIRATORY/CHEST: Symmetric, unlabored respirations. Rhonchi throughout all lung ray. GASTROINTESTINAL: Abdomen soft, large, round. Active bowel sounds. GENITOURINARY: Without palpable bladder distension. Saxena catheter in place. MUSCULOSKELETAL: Extremities without clubbing, cyanosis. 1+ edema to all 4 extremities. NEUROLOGICAL: Sedated. Not following commands. PSYCHIATRIC: Briefly arousable to stimuli, not agitated. . Diagnostic Tests Laboratory Laboratory Tests Test 02/03/17 14:20 02/04/17 03:30 02/04/17 16:45 02/05/17 03:50 Vancomycin Level Trough 13.0 MCG/ML (5.0-10.0) White Blood Count 5.8 TH/MM3 (4.0-11.0) 6.2 TH/MM3 (4.0-11.0) Red Blood Count 3.06 MIL/MM3 (4.50-5.90) 3.40 MIL/MM3 (4.50-5.90) Hemoglobin 9.1 GM/DL (13.0-17.0) 10.2 GM/DL (13.0-17.0) Hematocrit 27.5 % (39.0-51.0) 31.3 % (39.0-51.0) Mean Corpuscular Volume 89.9 FL (80.0-100.0) 92.3 FL (80.0-100.0) Mean Corpuscular Hemoglobin 29.8 PG (27.0-34.0) 30.0 PG (27.0-34.0) Mean Corpuscular Hemoglobin Concent 33.1 % (32.0-36.0) 32.5 % (32.0-36.0) Red Cell Distribution Width 17.3 % (11.6-17.2) 17.5 % (11.6-17.2) Platelet Count 92 TH/MM3 (150-450) 94 TH/MM3 (150-450) Mean Platelet Volume 9.4 FL (7.0-11.0) 9.8 FL (7.0-11.0) Neutrophils (%) (Auto) 87.4 % (16.0-70.0) 84.8 % (16.0-70.0) Lymphocytes (%) (Auto) 7.9 % (9.0-44.0) 8.5 % (9.0-44.0) Monocytes (%) (Auto) 4.7 % (0.0-8.0) 6.5 % (0.0-8.0) Eosinophils (%) (Auto) 0.0 % (0.0-4.0) 0.1 % (0.0-4.0) Basophils (%) (Auto) 0.0 % (0.0-2.0) 0.1 % (0.0-2.0) Neutrophils # (Auto) 5.1 TH/MM3 (1.8-7.7) 5.3 TH/MM3 (1.8-7.7) Lymphocytes # (Auto) 0.5 TH/MM3 (1.0-4.8) 0.5 TH/MM3 (1.0-4.8) Monocytes # (Auto) 0.3 TH/MM3 (0-0.9) 0.4 TH/MM3 (0-0.9) Eosinophils # (Auto) 0.0 TH/MM3 (0-0.4) 0.0 TH/MM3 (0-0.4) Basophils # (Auto) 0.0 TH/MM3 (0-0.2) 0.0 TH/MM3 (0-0.2) CBC Comment AUTO DIFF AUTO DIFF Differential Comment AUTO DIFF CONFIRMED AUTO DIFF CONFIRMED Platelet Estimate LOW (NORMAL) LOW (NORMAL) Platelet Morphology Comment NORMAL (NORMAL) NORMAL (NORMAL) Blood Urea Nitrogen 56 MG/DL (7-18) 61 MG/DL (7-18) Creatinine 0.97 MG/DL (0.60-1.30) 1.12 MG/DL (0.60-1.30) Random Glucose 183 MG/DL (74-106) 193 MG/DL (74-106) Total Protein 5.2 GM/DL (6.4-8.2) 5.8 GM/DL (6.4-8.2) Albumin 1.9 GM/DL (3.4-5.0) 2.3 GM/DL (3.4-5.0) Calcium Level 7.8 MG/DL (8.5-10.1) 8.3 MG/DL (8.5-10.1) Alkaline Phosphatase 72 U/L (45-117) 74 U/L (45-117) Aspartate Amino Transf (AST/SGOT) 87 U/L (15-37) 47 U/L (15-37) Alanine Aminotransferase (ALT/SGPT) 295 U/L (12-78) 243 U/L (12-78) Total Bilirubin 0.8 MG/DL (0.2-1.0) 0.7 MG/DL (0.2-1.0) Sodium Level 135 MEQ/L (136-145) 136 MEQ/L (136-145) Potassium Level 4.0 MEQ/L (3.5-5.1) 4.1 MEQ/L (3.5-5.1) Chloride Level 99 MEQ/L (98-107) 99 MEQ/L (98-107) Carbon Dioxide Level 26.9 MEQ/L (21.0-32.0) 26.8 MEQ/L (21.0-32.0) Anion Gap 9 MEQ/L (5-15) 10 MEQ/L (5-15) Estimat Glomerular Filtration Rate 79 ML/MIN (>89) 67 ML/MIN (>89) Pleural Fluid pH 8.5 Pleural Fluid WBC 110 /MM3 (0-10) Pleural Fluid RBC 210 /MM3 (0-0) Pleural Fluid Neutrophils 22 % Pleural Fluid Lymphocytes 60 % Pleural Fluid Monocytes 12 % Pleural Fluid Mesothelial Cells 6 % Pleural Fluid Total Protein 1.2 GM/DL Pleural Fluid LDH 54 U/L Pleural Fluid Glucose 184 MG/DL Magnesium Level 2.3 MG/DL (1.5-2.5) Test 02/06/17 06:31 White Blood Count 6.5 TH/MM3 (4.0-11.0) Red Blood Count 3.43 MIL/MM3 (4.50-5.90) Hemoglobin 10.1 GM/DL (13.0-17.0) Hematocrit 31.3 % (39.0-51.0) Mean Corpuscular Volume 91.3 FL (80.0-100.0) Mean Corpuscular Hemoglobin 29.4 PG (27.0-34.0) Mean Corpuscular Hemoglobin Concent 32.2 % (32.0-36.0) Red Cell Distribution Width 17.5 % (11.6-17.2) Platelet Count 95 TH/MM3 (150-450) Mean Platelet Volume 8.9 FL (7.0-11.0) Neutrophils (%) (Auto) 82.0 % (16.0-70.0) Lymphocytes (%) (Auto) 10.5 % (9.0-44.0) Monocytes (%) (Auto) 7.4 % (0.0-8.0) Eosinophils (%) (Auto) 0.0 % (0.0-4.0) Basophils (%) (Auto) 0.1 % (0.0-2.0) Neutrophils # (Auto) 5.3 TH/MM3 (1.8-7.7) Lymphocytes # (Auto) 0.7 TH/MM3 (1.0-4.8) Monocytes # (Auto) 0.5 TH/MM3 (0-0.9) Eosinophils # (Auto) 0.0 TH/MM3 (0-0.4) Basophils # (Auto) 0.0 TH/MM3 (0-0.2) CBC Comment AUTO DIFF Differential Comment AUTO DIFF CONFIRMED Platelet Estimate LOW (NORMAL) Platelet Morphology Comment NORMAL (NORMAL) Ovalocytes 1+ (NORMAL) Blood Urea Nitrogen 59 MG/DL (7-18) Creatinine 0.92 MG/DL (0.60-1.30) Random Glucose 218 MG/DL (74-106) Total Protein 5.5 GM/DL (6.4-8.2) Albumin 2.4 GM/DL (3.4-5.0) Calcium Level 8.4 MG/DL (8.5-10.1) Phosphorus Level 2.7 MG/DL (2.5-4.9) Magnesium Level 2.3 MG/DL (1.5-2.5) Alkaline Phosphatase 72 U/L (45-117) Aspartate Amino Transf (AST/SGOT) 30 U/L (15-37) Alanine Aminotransferase (ALT/SGPT) 161 U/L (12-78) Total Bilirubin 0.8 MG/DL (0.2-1.0) Sodium Level 137 MEQ/L (136-145) Potassium Level 3.9 MEQ/L (3.5-5.1) Chloride Level 101 MEQ/L (98-107) Carbon Dioxide Level 28.0 MEQ/L (21.0-32.0) Anion Gap 8 MEQ/L (5-15) Estimat Glomerular Filtration Rate 84 ML/MIN (>89) Result Diagram: 02/06/17 0631 02/06/17 0631 Microbiology Microbiology Date/Time Source Procedure Growth Status 02/04/17 16:45 Fluid Pleural Fluid Fungal Smear - Final NO FUNGAL ELEMENTS SEEN. Resulted 02/04/17 16:45 Fluid Pleural Fluid Fungal Culture Pending Resulted 02/04/17 16:45 Fluid Pleural Fluid Acid Fast Stain Pending Received 02/04/17 16:45 Fluid Pleural Fluid Mycobacterial Culture Pending Received 02/04/17 16:45 Fluid Pleural Fluid Gram Stain - Final Resulted 02/04/17 16:45 Fluid Pleural Fluid Body Fluid Culture - Preliminary NO GROWTH IN 48 HOURS. Resulted Imaging Last Impressions Chest X-Ray 02/06/17 0600 Signed Impressions: Service Date/Time: Monday, February 06, 2017 04:30 - CONCLUSION: 1. Persistent prominent consolidation left mid and lower lung. 2. No patchy infiltrates in the lower lateral right lung without consolidation. 3. Interval placement of gastric tube; cannot confirm that the tube passes into the stomach due to patient positioning and technical factors. Kulwant Gupta MD Liver Ultrasound 02/01/17 0000 Signed Impressions: Service Date/Time: Wednesday, February 01, 2017 16:32 - CONCLUSION: 1. Cirrhotic appearing liver with trace ascites in the pelvis. 2. Gallbladder wall thickening and mild pericholecystic fluid without gallstones. These findings are routinely seen in the setting of cirrhosis. If there is significant clinical concern regarding cholecystitis, HIDA scan may be performed. 3. Bilateral pleural effusions. Escobar Joiner MD Chest CT 01/31/17 0000 Signed Impressions: Service Date/Time: Tuesday, January 31, 2017 12:52 - CONCLUSION: 1. Moderate bilateral pleural effusions with associated bibasilar airspace consolidation. 2. Mild patchy airspace disease in the lingula and right middle lobe. 3. Diffuse soft tissue prominence of the mid to distal esophagus with esophageal stent in place consistent with history of esophageal CA. Administered contrast extends to the proximal esophagus. 4. ETT in good position. NGT just be in the GE junction. 5. Prominent coronary artery calcifications. Escobar Joiner MD Abdomen/Pelvis CT 01/31/17 0000 Signed Impressions: Service Date/Time: Tuesday, January 31, 2017 12:52 - CONCLUSION: 1. No definite CT findings to explain patient's lactic acidosis. Specifically, no evidence for bowel infarction or perforation. 2. Moderate bilateral pleural effusions with associated bilateral lower lobe airspace consolidation. 3. Diffusely prominent distal esophagus with distal esophageal stent in place. NGT courses through the stent with tip just beyond the GE junction. 4. Cirrhotic appearing liver without evidence for significant ascites or focal drainable fluid collection. Escobar Joiner MD Procedures 02/04/17 -right pigtail chest tube 02/03/17 -EGD 02/02/17 Intubated 02/02/17 Right femoral central line placement 02/02/17 Right femoral Arterial line . Assessment and Plan Disease Oriented Problem List: (1) Septic shock (2) PEA (Pulseless electrical activity) (3) Respiratory failure (4) Esophageal carcinoma (5) Acute kidney injury (6) Edema (7) Physical deconditioning (8) Anemia Symptom Scale: (1) Shortness of breath 0-10 Scale: Unable to quantify Comment: Intubated on mechanical ventilation. (2) Pain 0-10 Scale: Unable to quantify Comment: Multifactorial. Currently on fentanyl drip. (3) Debility 0-10 Scale: Unable to quantify Comment: Progressive. Pertinent Non-Medical Issues Psychosocial: Mr La is a 61-year-old male who was born in [place], [place]. Patient moved to [place] at the age of 15. He never attended high school after he moved to [place] nor obtained his GED. 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 No service. Patient is , has 1 daughter. Patient residing with girlfriend Luly Bautista for the past 40 years. Spiritual: The rastafari affiliation. Legal: Advance directives completed. Copy in file. Ethical issues impacting care: Patient unable to participate in medical decision making given clinical condition, intubated/sedated. . Important Contacts Daughter -Ben La Significant other Luly Bautista or . . 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, diabetes mellitus type 2, CAD, dyslipidemia and hypertension. Patient presented to the ED via EMS 02/02/17 from a long term for shortness of breath and weakness. Patient sustained PEA arrest, underwent CPR and ACLS drugs with ROS, subsequently intubated and placed on mechanical ventilation. Patient was recently discharged from the [facility] on 01/30/17 after hospitalization x 2 months. During hospitalization, his clinical course was complicated by NSTEMI, patient underwent PCI with bare metal stents on 11/30/16. Clinical course further complicated by persistent fever, MSSA bacteremia, worsening sepsis, A. fib with RVR and persistent respiratory failure, intubation and mechanical ventilation x3 times, pericardial effusion requiring pericardiocentesis and pleural effusion with chest tube placement. Patient's overall prognosis is poor given multiple chronic ongoing comorbidities, recent prolonged hospitalization x 2 months with multiple complications, malignancy, malnutrition, most recent PEA arrest and profound physical deconditioning. Patient remains at very high risk for further complications, continued decline and . . Code Status: Full Code Plan * CODE STATUS: DNR per my discussion with both healthcare surrogates. * [facility] CARE SURROGATE: Patient unable to participating medical decision making given clinical condition, intubated/sedated. Designation of healthcare surrogate completed during prior hospitalization. Patient designated his daughter Ben La AND significant other Luly Bautista as healthcare surrogate decision maker. * GOALS OF CARE: Goals of care has now transitioned to comfort. Family wishes to take the weekend absorbs this new information and determine further course but likely transition to compassionate withdrawal at hospice care center early next week. SYMPTOMS: * Shortness of breath - multifactorial. Currently intubated on mechanical ventilation. * Pain - secondary to ET tube, lines, bedrest, restraints, recent prolonged hospitalization. Currently on fentanyl and versed drips for pain control and sedation. * Debility - secondary to chronic comorbidities, acute events, present prolonged hospitalization. Likely to continue to worsen. * Case discussed with bedside RN Pinky. * Spiritual services offered and accepted. Referral made. * Ongoing emotional support and active listening provided to patient's significant other Luly and daughter Ben. There were both encouraged to continue goals of care conversation over and will follow up Thursday. * Palliative care contact information has been provided to patient's family. Family receptive to palliative care follow-ups. * Palliative care will continue to follow-up for further clarifications goals of care patient's clinical condition continues to evolve. . Attestation To help prompt me to consider important information that might be impacting today's encounter and assessment, information from prior notes written by myself or my colleagues may have been "brought forward" into today's note. My signature on this note, however, is an attestation that I personally performed the exam, history, and/or decision-making noted today, and, unless otherwise indicated, the interactions with patient, family, and staff as well as the review of records all occurred today. I also attest that the listed assessment and stated plan reflect my best clinical judgment today based on the combination of historical information, prior notes, and today's exam/ interactions. When time spent is documented, it refers only to time spent today by the signer, or if indicated, combined time spent today by collaborating physician/nurse practitioner. Betty Galindo Feb 06, 2017 11:31
--- NOTE | 2017-02-06 12:19 | HHI.CCPN ---
Subjective Remarks/Hospital Course The patient is a 61-year-old male with multiple comorbidities which include esophageal adenocarcinoma status post stent placement in December, coronary artery disease with previous stent placement in the proximal circumflex, squamous cell carcinoma of the skin and anemia and a history of atrial flutter. The patient presented to the [facility] Emergency Department from a local retirement for hypoxemia and severe respiratory distress. On arrival to the emergency room, the patient was hypotensive with a systolic blood pressure in the 80s, bradycardic with heart rate in the 50s and had a temperature of 97.6. Due to severe respiratory distress, he was subsequently intubated and placed on full mechanical ventilation. In addition, Versed drip was initiated. In the emergency room, the patient was found to have wide complex tachycardia and his laboratory data showed severe hyperkalemia with a potassium level of 6.9 and lactic acidosis with a lactic acid level of 12.5. The patient went into PEA arrest in the emergency room and he received epinephrine, bicarb with successful return of spontaneous circulation. He received approximately 1.5 liters of crystalloids and was started on Levophed drip which is currently 20 mics. For hyperkalemia, the patient was given 2 ampules of bicarb, calcium gluconate and 10 units of IV insulin D50 and placed on bicarb drip. A chest x-ray post- intubation showed ET tube above the elizabeth, bilateral pleural effusions with consolidation and atelectasis at the bases right greater than left. An ABG post intubation appears venous blood gas which showed a pH of 7.13, CO2 28, pAO2 44, bicarb of 9, saturation 53% with a base excess of -18.6. This was on assist control ventilation rate of 16, tidal volume 550, PEEP of 5 and 100% FIO2. The patient is scheduled for CT scan of the abdomen and pelvis along with CT scan of the chest. He was discharged from the hospital yesterday after he was admitted on December 24. On his previous admission, the patient had an Pseudomonas pneumoniae. In addition, he had MSSA bacteremia back in November. 02/01 Patient remains intubated with versed and Fentnayl drips. Levophed down 12 mics from 20 and on Vasopressin 0.04 mics. Lactic acid is trending down 2.9 this morning from 12.5 on arrival. On Bicarb drip. Afebrile. 02/02 No events overnight. Sedated with Versed and Fentanyl drips. Levophed down 6 mics and on Vasopressin 0.04. Renal function is improving with Cr: 1.17 from 1.86. Off Bicarb drip. 02/03 Patient was in SVT last night HR 204 given Adenosine 6mg+12mg then cardioverted with 50J now in NSR HR 70's. Sedated with Versed and Fentanyl drips. Given 2units PRBC overnight Hgb 9.2 this morning. Off all pressors. For EGD today. 02/04: Remains intubated sedated. Wakes up easily follows commands. Remains off all pressors platelet count decreasing 92 today. Hemoglobin stable. EGD esophageal mass/known Ca in the mid esophagus this was friable and when touched was oozing blood, an esophageal stent this was in good position and covering most of the mass but there is overgrowth more proximal to the stent does not appear to be occluding the esophagus 02/05: Afebrile. Minimal sedation. Hemoglobin remained stable. OG tube replaced by RN this AM. Failed CPAP trials after 2 minutes. Subjective 02/06: Resting comfortably in no acute distress. We'll attempt C Pap trial again today. Tube feeds not initiated. Resting comfortable in bed Objective Vital Signs Date Time Temp Pulse Resp B/P (MAP) Pulse Ox O2 Delivery O2 Flow Rate FiO2 02/06/17 12:00 35 02/06/17 11:24 100 02/06/17 06:00 96 02/06/17 04:00 98.3 18 107/53 (71) Intake and Output 02/06/17 02/06/17 02/07/17 08:00 16:00 00:00 Intake Total 700 ml 255 ml Balance 700 ml 255 ml Result Diagram: 02/06/17 0631 02/06/17 0631 Other Results Microbiology Date/Time Source Procedure Growth Status 01/31/17 08:35 Blood Peripheral Aerobic Blood Culture - Final NO GROWTH IN 5 DAYS Complete 01/31/17 08:35 Blood Peripheral Anaerobic Blood Culture - Final NO GROWTH IN 5 DAYS Complete 02/04/17 16:45 Fluid Pleural Fluid Fungal Smear - Final NO FUNGAL ELEMENTS SEEN. Resulted 02/04/17 16:45 Fluid Pleural Fluid Fungal Culture Pending Resulted 01/31/17 21:40 Sputum Endotracheal Gram Stain - Final Complete 01/31/17 21:40 Sputum Endotracheal Sputum Culture - Final HEAVY GROWTH NORMAL RESPIRATORY EDE Complete 01/31/17 13:35 Urine Catheterized Urine Legionella Antigen - Final PRESUMPTIVE NEGATIVE FOR LEGIONELLA P... Complete 01/31/17 13:35 Urine Catheterized Urine Streptococcus pneumoniae Antigen (M - Final PRESUMPTIVE NEGATIVE FOR STREPTOCOCCU... Complete Imaging Last Impressions Chest X-Ray 02/06/17 0600 Signed Impressions: Service Date/Time: Monday, February 06, 2017 04:30 - CONCLUSION: 1. Persistent prominent consolidation left mid and lower lung. 2. No patchy infiltrates in the lower lateral right lung without consolidation. 3. Interval placement of gastric tube; cannot confirm that the tube passes into the stomach due to patient positioning and technical factors. Kulwant Gupta MD Liver Ultrasound 02/01/17 0000 Signed Impressions: Service Date/Time: Wednesday, February 01, 2017 16:32 - CONCLUSION: 1. Cirrhotic appearing liver with trace ascites in the pelvis. 2. Gallbladder wall thickening and mild pericholecystic fluid without gallstones. These findings are routinely seen in the setting of cirrhosis. If there is significant clinical concern regarding cholecystitis, HIDA scan may be performed. 3. Bilateral pleural effusions. Escobar Joiner MD Chest CT 01/31/17 0000 Signed Impressions: Service Date/Time: Tuesday, January 31, 2017 12:52 - CONCLUSION: 1. Moderate bilateral pleural effusions with associated bibasilar airspace consolidation. 2. Mild patchy airspace disease in the lingula and right middle lobe. 3. Diffuse soft tissue prominence of the mid to distal esophagus with esophageal stent in place consistent with history of esophageal CA. Administered contrast extends to the proximal esophagus. 4. ETT in good position. NGT just be in the GE junction. 5. Prominent coronary artery calcifications. Escobar Joiner MD Abdomen/Pelvis CT 01/31/17 0000 Signed Impressions: Service Date/Time: Tuesday, January 31, 2017 12:52 - CONCLUSION: 1. No definite CT findings to explain patient's lactic acidosis. Specifically, no evidence for bowel infarction or perforation. 2. Moderate bilateral pleural effusions with associated bilateral lower lobe airspace consolidation. 3. Diffusely prominent distal esophagus with distal esophageal stent in place. NGT courses through the stent with tip just beyond the GE junction. 4. Cirrhotic appearing liver without evidence for significant ascites or focal drainable fluid collection. Escobar Joiner MD Objective Remarks GENERAL: 61-year-old male, critically ill currently orotracheally intubated SKIN: Warm and dry. Positive sacral decubitus ulcer stage II HEAD: Normocephalic. EYES: No scleral icterus. No injection or drainage. NECK: Supple, trachea midline. No JVD or lymphadenopathy. CARDIOVASCULAR: Regular rate and rhythm without murmurs, gallops, or rubs. RESPIRATORY: Breath sounds equal bilaterally. Coarse rhonchi appreciated bilaterally. Right chest tube is clean dry and intact. -450 SS GASTROINTESTINAL: Abdomen soft, non-tender, nondistended. MUSCULOSKELETAL: 2+ bilateral lower extremity edema Neuro: Intubated, sedated. Wakes up easily follows commands x4 times extremity agitated A/P Assessment and Plan Plan Neuro/Psych: On Fentanyl drip at 100 grams an hour and midazolam drip at 3 mg an hour for sedation. Goal of RA SS -2 Daily sedation vacation. Pulm: Acute hypoxemic respiratory failure Right pleural effusion Continue with vent support and maintain saturations>92%. PRVC 14/500/05/22/40 Ventilator bundle Albuterol/ipratropium aerosols every 4 hours with albuterol every 2 hours. Dyspnea hydrocortisone 50mg Q12 SBT daily as michael. Lasted [address] chest: Moderate bilateral pleural effusions with associated bibasilar airspace consolidation. Mild patchy airspace disease in the lingula and right middle lobe. Esophageal CA. -450 SS -40 cm H2O chest tube CV: Severe aortic regurgitation History of coronary disease status post stent circumflex Coronary artery disease Dyslipidemia Hypertension Off all pressors monitor HR and BP keep MAP>65mmHg Patient went into SVT 02/02 night given Adenosine and was cardioverted with 50J now in NSR HR 70's. Continue with ASA 81 mg daily and clopidogrel 75 mg daily- Discussed with Dr. Tejeda Echo from 01/07 showed EF 60% to 65%. Echo 02/01 revealed EF 40-45%. Bilateral atrial enlargement. LVH. Holding atorvastatin 40 mg by mouth daily in light of elevated LFTs. Holding metoprolol 25 mg every 8 hours, amiodarone 10 mg daily and diltiazem 90 mg every 6 hours for atrial fibrillation. Resume when clinically indicated Evaluation by CT surgery for aVR. PA consulted noted yesterday with Dr. Laboy input pending Renal/: Monitor renal function, intakes and outputs and avoid nephrotoxins. 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 Gallbladder wall thickening and mild pericholecystic fluid without gallstone hepatitis profile : Hep C reactive ab. Genotype and viral load pending on pantoprazole 40 mg IV Q12 for GI prophylaxis. CT abdomen/pelvis: no bowel infarction or perforation. bilateral lower lobe airspace consolidation. Diffusely prominent distal esophagus with distal esophageal stent in place. EGD By Dr. Tejeda 02/03 esophageal Ca in the mid esophagus friable oozing blood, esophageal stent in good position and covering most of the mass but there is overgrowth more proximal to the stent does not appear to be occluding the esophagus Will give Relistor and glycerin suppository for bowel movement yesterday. Not successful try sepsis enema today. Start TPN if NG tube non-stomach otherwise start tube feeds ID; Continue with abx (cefepime) ID is following Monitor for signs of infection which include fever and WBCs. Follow up on blood, sputum, urine cultures: NGTD Strep pneumoniae and Legionella urinary antigen negative. 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 S/P mohs surgery September 2015 Normocytic anemia Thrombocytopenia Status post parotidectomy and radical neck dissection in September 2016. Monitor CBC, s/p transfusion 2units PRBC 02/02 overnight Hgb 9.1 this morning Oncology consulted ( patient known to him) patient is on chemo and XRT for his esophageal ca. not a candidate due to underlying critical illness Endo: Diabetes mellitus SSI with Accu-Chek q. 4 hours for glycemic control. On Levemir 40 units daily metformin 1000 mg twice a day at home. GI prophylaxis with pantoprazole 40 mg IV Q12 DVT prophylaxis with SCDs. No chemical prophylaxis due to anemia requiring blood transfusion Lines: Right Femoral Central line placed by ED 01/31, Right femoral Art Line placed 01/31. DC both 02/04/17 Palliative care is following of care CCT 30 mins Hubert Yoder MD Feb 06, 2017 12:19
--- NOTE | 2017-02-06 13:11 | PD.ONC.PN ---
Subjective Subjective Remarks Afebrile overnight. Intubated, sedated. Objective Data Date Time Temp Pulse Resp B/P (MAP) Pulse Ox O2 Delivery O2 Flow Rate FiO2 02/06/17 12:00 88 02/06/17 12:00 98.6 88 18 118/58 (78) 100 02/06/17 12:00 35 02/06/17 11:24 100 35 02/06/17 10:00 92 02/06/17 08:09 99 35 02/06/17 08:00 35 02/06/17 08:00 98.5 86 18 114/55 (74) 99 02/06/17 08:00 86 02/06/17 06:00 96 02/06/17 04:42 100 35 02/06/17 04:00 98.3 82 18 107/53 (71) 99 02/06/17 04:00 35 02/06/17 04:00 81 02/06/17 02:00 82 02/06/17 01:11 99 35 02/06/17 00:00 35 02/06/17 00:00 91 02/06/17 00:00 98.4 90 18 120/60 (80) 99 02/05/17 22:04 99 35 02/05/17 22:00 93 02/05/17 20:00 100 02/05/17 20:00 98 18 145/53 (83) 98 02/05/17 20:00 35 02/05/17 19:26 99 35 02/05/17 18:00 92 02/05/17 16:00 35 02/05/17 16:00 80 02/05/17 16:00 98.7 80 18 98/50 (66) 99 02/05/17 14:52 99 35 02/05/17 14:00 92 02/06/17 02/06/17 02/06/17 07:00 15:00 23:00 Intake Total 700 ml 255 ml Balance 700 ml 255 ml Result Diagram: 02/06/1731 02/06/1731 Laboratory Results Laboratory Tests Test 02/06/17 06:31 White Blood Count 6.5 TH/MM3 Red Blood Count 3.43 MIL/MM3 Hemoglobin 10.1 GM/DL Hematocrit 31.3 % Mean Corpuscular Volume 91.3 FL Mean Corpuscular Hemoglobin 29.4 PG Mean Corpuscular Hemoglobin Concent 32.2 % Red Cell Distribution Width 17.5 % Platelet Count 95 TH/MM3 Mean Platelet Volume 8.9 FL Neutrophils (%) (Auto) 82.0 % Lymphocytes (%) (Auto) 10.5 % Monocytes (%) (Auto) 7.4 % Eosinophils (%) (Auto) 0.0 % Basophils (%) (Auto) 0.1 % Neutrophils # (Auto) 5.3 TH/MM3 Lymphocytes # (Auto) 0.7 TH/MM3 Monocytes # (Auto) 0.5 TH/MM3 Eosinophils # (Auto) 0.0 TH/MM3 Basophils # (Auto) 0.0 TH/MM3 CBC Comment AUTO DIFF Differential Comment AUTO DIFF CONFIRMED Platelet Estimate LOW Platelet Morphology Comment NORMAL Ovalocytes 1+ Blood Urea Nitrogen 59 MG/DL Creatinine 0.92 MG/DL Random Glucose 218 MG/DL Total Protein 5.5 GM/DL Albumin 2.4 GM/DL Calcium Level 8.4 MG/DL Phosphorus Level 2.7 MG/DL Magnesium Level 2.3 MG/DL Alkaline Phosphatase 72 U/L Aspartate Amino Transf (AST/SGOT) 30 U/L Alanine Aminotransferase (ALT/SGPT) 161 U/L Total Bilirubin 0.8 MG/DL Sodium Level 137 MEQ/L Potassium Level 3.9 MEQ/L Chloride Level 101 MEQ/L Carbon Dioxide Level 28.0 MEQ/L Anion Gap 8 MEQ/L Estimat Glomerular Filtration Rate 84 ML/MIN Culture Results Microbiology Date/Time Source Procedure Growth Status 02/04/17 16:45 Fluid Pleural Fluid Fungal Smear - Final NO FUNGAL ELEMENTS SEEN. Resulted 02/04/17 16:45 Fluid Pleural Fluid Fungal Culture Pending Resulted 02/04/17 16:45 Fluid Pleural Fluid Acid Fast Stain Pending Received 02/04/17 16:45 Fluid Pleural Fluid Mycobacterial Culture Pending Received 02/04/17 16:45 Fluid Pleural Fluid Gram Stain - Final Resulted 02/04/17 16:45 Fluid Pleural Fluid Body Fluid Culture - Preliminary NO GROWTH IN 48 HOURS. Resulted Imaging Studies Last 24 hours Impressions Chest X-Ray 02/06/17 0600 Signed Impressions: Service Date/Time: Monday, February 06, 2017 04:30 - CONCLUSION: 1. Persistent prominent consolidation left mid and lower lung. 2. No patchy infiltrates in the lower lateral right lung without consolidation. 3. Interval placement of gastric tube; cannot confirm that the tube passes into the stomach due to patient positioning and technical factors. Kulwant Gupta MD Administered Medications Medications (Trade) Dose Ordered Sig/Geovanny Route PRN Reason Start Time Stop Time Status Last Admin Dose Admin Miscellaneous Information 1 [id number] XX 01/31/17 10:00 01/31/17 10:00 Chlorhexidine Gluconate (Chlorhexidine 2% Cloth) Taper DAILY@04 TOP 02/01/17 04:00 01/28/18 03:59 02/04/17 20:19 Senna/Docusate Sodium (Rere-Colace) 1 tab BID PO 01/31/17 21:00 02/06/17 08:51 Insulin Human Regular (NovoLIN R SUPPLEMENTAL SCALE) 1 Q4H SQ 01/31/17 10:00 02/06/17 11:00 Clopidogrel Bisulfate (Plavix) 75 mg DAILY PO 01/31/17 11:00 02/05/17 08:49 Fentanyl Citrate 250 ml @ 5 mls/hr TITRATE PRN IV SEDATION 01/31/17 12:45 02/06/17 08:51 Midazolam HCl 100 ml @ 2 mls/hr TITRATE PRN IV SEDATION 01/31/17 16:00 02/06/17 09:50 Propofol 100 ml @ 3 mls/hr TITRATE PRN IV SEDATION 01/31/17 17:45 01/31/17 17:40 Propofol 100 ml @ 3 mls/hr TITRATE PRN IV SEDATION 01/31/17 18:00 01/31/17 19:59 Cefepime HCl 2000 mg/Sodium Chloride 100 ml @ 200 mls/hr Q12H IV 02/01/17 02:00 02/07/17 23:00 02/06/17 02:00 Pantoprazole Sodium (Protonix Inj) 40 mg Q12HR IV PUSH 02/02/17 21:00 02/06/17 08:51 Collagenase (Santyl Oint) 1 applic DAILY TOPICAL 02/03/17 09:00 02/06/17 08:53 Dextrose/Sodium Chloride 1,000 ml @ 50 mls/hr Q20H IV 02/03/17 18:00 02/06/17 06:00 Hydrocortisone Sodium Succinate (SoluCORTEF INJ) 50 mg BID IV PUSH 02/05/17 21:00 02/06/17 08:51 Albuterol/ Ipratropium (Duoneb Neb) 1 ampule Q6HR NEB INH 02/05/17 22:00 02/06/17 08:09 Albuterol Sulfate (Albuterol Neb) 2.5 mg Q2HR NEB PRN INH SOB/WHEEZING 02/05/17 17:15 02/05/17 19:29 Objective Remarks GENERAL: intubated sedated patient supine in bed. SKIN: Warm and dry. HEAD: Normocephalic. EYES: No injection or drainage. NECK: Supple, trachea midline. CARDIOVASCULAR: +S1/S2 RESPIRATORY: anterior ray clear. on mechanical ventilation. GASTROINTESTINAL: Abdomen mildly distended. EXTREMITIES: No cyanosis NEUROLOGICAL: intubated, sedated. Assessment/Plan Problem List: (1) Esophageal adenocarcinoma ICD Codes: C15.9 - Malignant neoplasm of esophagus, unspecified Status: Acute Plan: --cannot initiate treatment until patient's acute issues resolve, cancer will likely progress if we are not able to initiate treatment soon. --has been unable to follow up in the oncology clinic. --has not been initiated on chemotherapy or radiation treatments for his gastroesophageal cancer at this time. (2) Normocytic anemia ICD Codes: D64.9 - Anemia, unspecified Status: Acute Plan: --try to keep his hemoglobin greater than 8 in the setting of coronary artery disease. (3) Sepsis ICD Codes: A41.9 - Sepsis, unspecified organism Plan: --treatment per primary team/intensivists --d/t HCAP pneumonia --Sepsis and lactic acidosis Assessment 61y/o male with a history of head and neck malignancy as well as gastroesophageal cancer who was admitted to the hospital with respiratory failure and septic shock. h/o Head and neck cancer. Gastroesophageal adenocarcinoma Esophageal stricture with stent placement Coronary artery disease with previous stent to the proximal Circumflex. History of pleural and pericardial effusion. Anemia History of A. flutter. Plan 1. monitor CBC 2. supportive care Attending Statement The exam, history, and the medical decision-making described in the above note were completed with the assistance of the mid-level provider. I reviewed and agree with the findings presented. I attest that I had a [id number] encounter with the patient on the same day, and personally performed and documented my assessment and findings in the medical record Perla Duran Feb 06, 2017 13:11 Brant Bell MD Feb 06, 2017 23:27
--- NOTE | 2017-02-06 15:07 | RADRPT ---
EXAM DATE/TIME: 02/06/2017 14:37 [facility] COMPARISON: CT ABDOMEN & PELVIS W/O CONTRAST, January 31, 2017, 12:52. INDICATIONS : Post NG tube placement. MEDICAL HISTORY : Diabetes mellitus type II. Carcinoma, esophageal. Squamous cell carcinoma. SURGICAL HISTORY : Appendectomy. Coronary artery stent. ENCOUNTER: Subsequent ACUITY: 1 day PAIN SCORE: Non-responsive. LOCATION: abdomen FINDINGS: Supine view of the abdomen was performed. The abdominal bowel gas pattern is normal. No abnormal ma sses, calcifications, or organomegaly is seen. The osseous structures reveal degenerative changes in the lower lumbar spine.. Multiple superficial monitor leads across the chest and abdomen. No evidenc e of nasogastric tube identified. CONCLUSION: Benign abdomen. Negative for nasogastric tube Raudel Greenberg MD on February 06, 2017 at 15:03 Board Certified Radiologist. This report was verified electronically.
[2017-02-07] VITALS (23 sets, daily range): BP systolic 101–120; BP diastolic 51–59; PULSE 75–90; RESP 17–18; TEMP 97.9–99.1; O2SAT 99–100
[2017-02-07] MEDS: DEXT 5%-NACL 0.9% 1000 ML INJ 1,000 ML IV SCH ×2 (02:00→22:00)
[2017-02-07] MEDS: INSULIN NovoLIN REGULAR SUPPLEMENTAL SCALE SQ SCH ×6 (02:00→22:00)
[2017-02-07] MEDS: CEFEPIME INJ 2,000 MG in SODIUM CHLORIDE 0.9% INJ 100 ML IV SCH ×2 (03:06→13:18)
[2017-02-07] MEDS: RESP: ALBUTEROL 2.5 MG/IPRATROPIUM 0.5 MG NEB (SCH) INH ×4 (03:51→20:42)
[2017-02-07] MEDS: CHLORHEXIDINE GLUCONATE 2 % 1 PACK (2 CLOTHS) TOP SCH (04:00)
[2017-02-07 05:23] LABS: HEMATOCRIT 31.6 % (39.0-51.0); MEAN CORPUSCULAR HEMOGLOBIN 29.3 PG (27.0-34.0); MEAN CORPUSCULAR HGB CONC 32.2 % (32.0-36.0); PLATELET COUNT 86 TH/MM3 (150-450); RED BLOOD COUNT 3.47 MIL/MM3 (4.50-5.90); RED CELL DISTRIBUTION WIDTH 17.5 % (11.6-17.2); WHITE BLOOD COUNT 7.3 TH/MM3 (4.0-11.0)
[2017-02-07 05:31] LABS: REVIEW FLAG FINAL
[2017-02-07 05:41] LABS: ANION GAP 7 MEQ/L (5-15); AST (GOT) 19 U/L (15-37); BICARBONATE 28.6 MEQ/L (21.0-32.0); BLOOD UREA NITROGEN 55 MG/DL (7-18); CHLORIDE 104 MEQ/L (98-107); GLOMERULAR FILTRATION RATE 86 ML/MIN (>89); MAGNESIUM 2.3 MG/DL (1.5-2.5); POTASSIUM 4.3 MEQ/L (3.5-5.1); SODIUM (NA) 140 MEQ/L (136-145)
[2017-02-07 05:43] LABS: ALT (GPT) 118 U/L (12-78)
[2017-02-07 05:46] LABS: ALKALINE PHOSPHATASE 70 U/L (45-117); TOTAL BILIRUBIN ADULT 0.8 MG/DL (0.2-1.0)
--- NOTE | 2017-02-07 06:41 | RADRPT ---
EXAM DATE/TIME: 02/07/2017 04:39 [facility] COMPARISON: CHEST SINGLE AP, February 05, 2017, 4:19. ABDOMEN KUB ONLY, February 06, 2017, 14:37. CHEST SINGL E AP, February 06, 2017, 4:30. INDICATIONS : Shortness of breath, possible pulmonary disease. MEDICAL HISTORY : Diabetes mellitus type II. Carcinoma, esophageal. Squamous cell carcinoma SURGICAL HISTORY : Appendectomy. Coronary artery stent. ENCOUNTER: Subsequent ACUITY: 2 months PAIN SCORE: Non-responsive. LOCATION: Bilateral chest FINDINGS: ET tube well above the elizabeth. Gastric tube in place with the tip approximately at the level of the hemidiaphragm. Esophageal stent in place. There is persisting consolidation left mid and lower lung with loss of delineation of the entire left hemidiaphragm. Some patchy infiltrates in the lower rig ht lung stable. Right chest catheter lower lateral region stable in position without evidence of pne umothorax. CONCLUSION: 1. Left lower lung consolidation. 2. No evidence of pneumothorax on the right side with loop catheter lower lateral chest. 3. The location of the tip of the gastric tube is not well-seen on this exam and is probably within t he distal esophagus. Kulwant Gupta MD on February 07, 2017 at 6:37 Board Certified Radiologist. This report was verified electronically.
[2017-02-07] MEDS: HYDROCORTISONE SOD SUCCINATE 100 MG VIAL IV PUSH SCH ×2 (09:30→20:20)
[2017-02-07] MEDS: DOCUSATE SODIUM 50 MG/SENNA 8.6 MG TAB PO SCH ×2 (09:30→20:20)
[2017-02-07] MEDS: CLOPIDOGREL 75 MG TAB PO SCH (09:30)
[2017-02-07] MEDS: ASPIRIN EC 81 MG TABEC PO SCH (09:30)
[2017-02-07] MEDS: fentaNYL DRIP 250 ML IV PRN ×2 (09:30→22:16)
[2017-02-07] MEDS: PANTOPRAZOLE SODIUM 40 MG VIAL IV PUSH SCH ×2 (09:30→20:20)
[2017-02-07] MEDS: COLLAGENASE OINT 30 GM TUBE TOPICAL SCH (09:31)
[2017-02-07] MEDS: MIDAZOLAM 100 MG/100 ML INJ 100 ML IV PRN (10:54)
--- NOTE | 2017-02-07 12:21 | HHI.CCPN ---
Subjective Remarks/Hospital Course The patient is a 61-year-old male with multiple comorbidities which include esophageal adenocarcinoma status post stent placement in December, coronary artery disease with previous stent placement in the proximal circumflex, squamous cell carcinoma of the skin and anemia and a history of atrial flutter. The patient presented to the [facility] Emergency Department from a local [facility] for hypoxemia and severe respiratory distress. On arrival to the emergency room, the patient was hypotensive with a systolic blood pressure in the 80s, bradycardic with heart rate in the 50s and had a temperature of 97.6. Due to severe respiratory distress, he was subsequently intubated and placed on full mechanical ventilation. In addition, Versed drip was initiated. In the emergency room, the patient was found to have wide complex tachycardia and his laboratory data showed severe hyperkalemia with a potassium level of 6.9 and lactic acidosis with a lactic acid level of 12.5. The patient went into PEA arrest in the emergency room and he received epinephrine, bicarb with successful return of spontaneous circulation. He received approximately 1.5 liters of crystalloids and was started on Levophed drip which is currently 20 mics. For hyperkalemia, the patient was given 2 ampules of bicarb, calcium gluconate and 10 units of IV insulin D50 and placed on bicarb drip. A chest x-ray post- intubation showed ET tube above the elizabeth, bilateral pleural effusions with consolidation and atelectasis at the bases right greater than left. An ABG post intubation appears venous blood gas which showed a pH of 7.13, CO2 28, pAO2 44, bicarb of 9, saturation 53% with a base excess of -18.6. This was on assist control ventilation rate of 16, tidal volume 550, PEEP of 5 and 100% FIO2. The patient is scheduled for CT scan of the abdomen and pelvis along with CT scan of the chest. He was discharged from the hospital yesterday after he was admitted on December 24. On his previous admission, the patient had an Pseudomonas pneumoniae. In addition, he had MSSA bacteremia back in November. 02/01 Patient remains intubated with versed and Fentnayl drips. Levophed down 12 mics from 20 and on Vasopressin 0.04 mics. Lactic acid is trending down 2.9 this morning from 12.5 on arrival. On Bicarb drip. Afebrile. 02/02 No events overnight. Sedated with Versed and Fentanyl drips. Levophed down 6 mics and on Vasopressin 0.04. Renal function is improving with Cr: 1.17 from 1.86. Off Bicarb drip. 02/03 Patient was in SVT last night HR 204 given Adenosine 6mg+12mg then cardioverted with 50J now in NSR HR 70's. Sedated with Versed and Fentanyl drips. Given 2units PRBC overnight Hgb 9.2 this morning. Off all pressors. For EGD today. 02/04: Remains intubated sedated. Wakes up easily follows commands. Remains off all pressors platelet count decreasing 92 today. Hemoglobin stable. EGD esophageal mass/known Ca in the mid esophagus this was friable and when touched was oozing blood, an esophageal stent this was in good position and covering most of the mass but there is overgrowth more proximal to the stent does not appear to be occluding the esophagus 02/05: Afebrile. Minimal sedation. Hemoglobin remained stable. OG tube replaced by RN this AM. Failed CPAP trials after 2 minutes. 02/06: Resting comfortably in no acute distress. We'll attempt C Pap trial again today. Tube feeds not initiated. Resting comfortable in bed Subjective 02/07: Afebrile. Resting in bed. Failed PSV trial yesterday. Currently resting in bed in no distress. Objective Vital Signs Date Time Temp Pulse Resp B/P (MAP) Pulse Ox O2 Delivery O2 Flow Rate FiO2 02/07/17 11:00 76 18 101/54 (70) 100 02/07/17 08:00 98.9 02/07/17 08:00 35 Intake and Output 02/07/17 02/07/17 02/08/17 08:00 16:00 00:00 Intake Total 100 ml 1329 ml Output Total 910 ml 180 ml Balance -810 ml 1149 ml Result Diagram: 02/07/176 02/07/176 Other Results Microbiology Date/Time Source Procedure Growth Status 01/31/17 08:35 Blood Peripheral Aerobic Blood Culture - Final NO GROWTH IN 5 DAYS Complete 01/31/17 08:35 Blood Peripheral Anaerobic Blood Culture - Final NO GROWTH IN 5 DAYS Complete 02/04/17 16:45 Fluid Pleural Fluid Fungal Smear - Final NO FUNGAL ELEMENTS SEEN. Resulted 02/04/17 16:45 Fluid Pleural Fluid Fungal Culture Pending Resulted 01/31/17 21:40 Sputum Endotracheal Gram Stain - Final Complete 01/31/17 21:40 Sputum Endotracheal Sputum Culture - Final HEAVY GROWTH NORMAL RESPIRATORY EDE Complete 01/31/17 13:35 Urine Catheterized Urine Legionella Antigen - Final PRESUMPTIVE NEGATIVE FOR LEGIONELLA P... Complete 01/31/17 13:35 Urine Catheterized Urine Streptococcus pneumoniae Antigen (M - Final PRESUMPTIVE NEGATIVE FOR STREPTOCOCCU... Complete Imaging Last Impressions Chest X-Ray 02/07/17 0600 Signed Impressions: Service Date/Time: Tuesday, February 07, 2017 04:39 - CONCLUSION: 1. Left lower lung consolidation. 2. No evidence of pneumothorax on the right side with loop catheter lower lateral chest. 3. The location of the tip of the gastric tube is not well-seen on this exam and is probably within the distal esophagus. Kulwant Gupta MD Abdomen X-Ray 02/06/17 0000 Signed Impressions: Service Date/Time: Monday, February 06, 2017 14:37 - CONCLUSION: Benign abdomen. Negative for nasogastric tube Raudel Greenberg MD Liver Ultrasound 02/01/17 0000 Signed Impressions: Service Date/Time: Wednesday, February 01, 2017 16:32 - CONCLUSION: 1. Cirrhotic appearing liver with trace ascites in the pelvis. 2. Gallbladder wall thickening and mild pericholecystic fluid without gallstones. These findings are routinely seen in the setting of cirrhosis. If there is significant clinical concern regarding cholecystitis, HIDA scan may be performed. 3. Bilateral pleural effusions. Escobar Joiner MD Chest CT 01/31/17 0000 Signed Impressions: Service Date/Time: Tuesday, January 31, 2017 12:52 - CONCLUSION: 1. Moderate bilateral pleural effusions with associated bibasilar airspace consolidation. 2. Mild patchy airspace disease in the lingula and right middle lobe. 3. Diffuse soft tissue prominence of the mid to distal esophagus with esophageal stent in place consistent with history of esophageal CA. Administered contrast extends to the proximal esophagus. 4. ETT in good position. NGT just be in the GE junction. 5. Prominent coronary artery calcifications. Escobar Joiner MD Abdomen/Pelvis CT 01/31/17 0000 Signed Impressions: Service Date/Time: Tuesday, January 31, 2017 12:52 - CONCLUSION: 1. No definite CT findings to explain patient's lactic acidosis. Specifically, no evidence for bowel infarction or perforation. 2. Moderate bilateral pleural effusions with associated bilateral lower lobe airspace consolidation. 3. Diffusely prominent distal esophagus with distal esophageal stent in place. NGT courses through the stent with tip just beyond the GE junction. 4. Cirrhotic appearing liver without evidence for significant ascites or focal drainable fluid collection. Escobar Joiner MD Objective Remarks GENERAL: 61-year-old male, critically ill currently orotracheally intubated SKIN: Warm and dry. Positive sacral decubitus ulcer stage II HEAD: Normocephalic. EYES: No scleral icterus. No injection or drainage. NECK: Supple, trachea midline. No JVD or lymphadenopathy. CARDIOVASCULAR: Regular rate and rhythm without murmurs, gallops, or rubs. RESPIRATORY: Breath sounds equal bilaterally. Coarse rhonchi appreciated bilaterally. Right chest tube is clean dry and intact. -450 SS GASTROINTESTINAL: Abdomen soft, non-tender, nondistended. MUSCULOSKELETAL: 2+ bilateral lower extremity edema Neuro: Intubated, sedated. Wakes up easily follows commands x4 times extremity agitated A/P Assessment and Plan Plan Neuro/Psych: On Fentanyl drip at 200 grams an hour and midazolam drip at 7 mg an hour for sedation. Goal of RA SS -2 Daily sedation vacation. Pulm: Acute hypoxemic respiratory failure Right pleural effusion Continue with vent support and maintain saturations>92%. PRVC 14/500/05/22/39 Ventilator bundle Albuterol/ipratropium aerosols every 4 hours with albuterol every 2 hours. Dyspnea hydrocortisone 50mg Q12 SBT daily as michael. Lasted [address] chest: Moderate bilateral pleural effusions with associated bibasilar airspace consolidation. Mild patchy airspace disease in the lingula and right middle lobe. Esophageal CA. -180 SS -20 cm H2O chest tube CV: Severe aortic regurgitation History of coronary disease status post stent circumflex Coronary artery disease Dyslipidemia Hypertension Off all pressors monitor HR and BP keep MAP>65mmHg Patient went into SVT 02/02 night given Adenosine and was cardioverted with 50J now in NSR HR 70's. Continue with ASA 81 mg daily and clopidogrel 75 mg daily- Discussed with Dr. Tejeda Echo from 01/07 showed EF 60% to 65%. Echo 02/01 revealed EF 40-45%. Bilateral atrial enlargement. LVH. Holding atorvastatin 40 mg by mouth daily in light of elevated LFTs. Holding metoprolol 25 mg every 8 hours, amiodarone 10 mg daily and diltiazem 90 mg every 6 hours for atrial fibrillation. Resume when clinically indicated Evaluation by CT surgery for aVR. PA consulted noted yesterday with Dr. Laboy input pending Renal/: Monitor renal function, intakes and outputs and avoid nephrotoxins. 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 Monitor LFT's, US liver: Cirrhotic appearing liver with trace ascites in the pelvis. Gallbladder wall thickening and mild pericholecystic fluid without gallstone hepatitis profile : Hep C reactive ab. Genotype and viral load pending on pantoprazole 40 mg IV Q12 for GI prophylaxis. CT abdomen/pelvis: no bowel infarction or perforation. bilateral lower lobe airspace consolidation. Diffusely prominent distal esophagus with distal esophageal stent in place. EGD By Dr. Tejeda 02/03 esophageal Ca in the mid esophagus friable oozing blood, esophageal stent in good position and covering most of the mass but there is overgrowth more proximal to the stent does not appear to be occluding the esophagus Will give Relistor and glycerin suppository for bowel movement yesterday. Not successful soapsuds enema today. Start TPN today with PICC line placement ID; Continue with abx (cefepime) ID is following Monitor for signs of infection which include fever and WBCs. Follow up on blood, sputum, urine cultures: NGTD Strep pneumoniae and Legionella urinary antigen negative. 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 S/P mohs surgery September 2015 Normocytic anemia Thrombocytopenia Status post parotidectomy and radical neck dissection in September 2016. Monitor CBC, s/p transfusion 2units PRBC 02/02 overnight Hgb 9.1 this morning Oncology consulted ( patient known to him) patient is on chemo and XRT for his esophageal ca. not a candidate due to underlying critical illness Endo: Diabetes mellitus SSI with Accu-Chek q. 4 hours for glycemic control. On Levemir 40 units daily metformin 1000 mg twice a day at home. Start Levemir 12 units subcutaneous twice a day today GI prophylaxis with pantoprazole 40 mg IV Q12 DVT prophylaxis with SCDs. No chemical prophylaxis due to anemia requiring blood transfusion Lines: Right Femoral Central line placed by ED 01/31, Right femoral Art Line placed 01/31. DC both 02/04/17 Palliative care is following of care. DNR status CCT 30 mins Hubert Yoder MD Feb 07, 2017 12:21
--- NOTE | 2017-02-07 13:28 | HHI.IDPN ---
Subjective Subjective Remarks Chart reviewed Patient known to me from his previous admissions He has known head and neck CA, and esophageal mass, S/P esophageal stent during his last hospitalization He was treated for high grade MSSA bacteremia, due to infected port Port removed and he completed Abx Rx with Ancef on Jan 15 He was also treated for PSAE PNA during his last admission He also had evidence of serositis and had pleural effusions and pericardial effusions that were both drained, C/S negative (but he was on Abx), cytology negative for malignancy He was D/C to SNF 01/30 and readmitted 01/31 Notes reviewed D/W RN On the vent, sedated Got agitated when off sedation Not tolerate weaning - CPAP Remains in NSR Has CT R side - fluid is transudative Echo with multiple valvular insufficiency including severe AI Antibiotics cefepime Lines PIV Past Medical History Reviewed Allergies: Coded Allergies: penicillin G (Unverified Allergy, Mild, Hives, 12/30/16) Objective . Vital Signs Date Time Temp Pulse Resp B/P (MAP) Pulse Ox O2 Delivery O2 Flow Rate FiO2 02/07/17 11:00 76 18 101/54 (70) 100 02/07/17 10:00 78 18 105/55 (72) 100 02/07/17 10:00 78 02/07/17 09:00 79 18 108/55 (72) 100 02/07/17 08:00 98.9 79 18 109/57 (74) 100 02/07/17 08:00 35 02/07/17 08:00 79 02/07/17 07:54 100 35 02/07/17 07:00 75 18 103/56 (72) 100 02/07/17 06:00 77 02/07/17 04:00 35 02/07/17 04:00 83 02/07/17 04:00 98.0 86 18 120/57 (78) 100 02/07/17 03:51 100 35 02/07/17 02:00 90 02/07/17 01:21 99 35 02/07/17 00:00 35 02/07/17 00:00 98.2 81 18 115/58 (77) 100 02/07/17 00:00 75 02/06/17 22:25 100 35 02/06/17 22:00 80 02/06/17 20:00 98.0 83 18 112/56 (74) 100 02/06/17 20:00 79 02/06/17 20:00 35 02/06/17 18:00 80 02/06/17 16:00 35 02/06/17 16:00 98.6 79 18 106/55 (72) 100 02/06/17 16:00 79 02/06/17 15:38 100 35 02/06/17 14:00 83 02/07/17 02/07/17 02/08/17 15:00 23:00 07:00 Intake Total 1329 ml Output Total 180 ml Balance 1149 ml IV Total 1329 ml Chest Tube Drainage Total 180 ml . Laboratory Tests Test 02/06/17 06:31 02/07/17 04:06 White Blood Count 6.5 TH/MM3 7.3 TH/MM3 Red Blood Count 3.43 MIL/MM3 3.47 MIL/MM3 Hemoglobin 10.1 GM/DL 10.2 GM/DL Hematocrit 31.3 % 31.6 % Mean Corpuscular Volume 91.3 FL 91.0 FL Mean Corpuscular Hemoglobin 29.4 PG 29.3 PG Mean Corpuscular Hemoglobin Concent 32.2 % 32.2 % Red Cell Distribution Width 17.5 % 17.5 % Platelet Count 95 TH/MM3 86 TH/MM3 Mean Platelet Volume 8.9 FL 9.4 FL Neutrophils (%) (Auto) 82.0 % Lymphocytes (%) (Auto) 10.5 % Monocytes (%) (Auto) 7.4 % Eosinophils (%) (Auto) 0.0 % Basophils (%) (Auto) 0.1 % Neutrophils # (Auto) 5.3 TH/MM3 Lymphocytes # (Auto) 0.7 TH/MM3 Monocytes # (Auto) 0.5 TH/MM3 Eosinophils # (Auto) 0.0 TH/MM3 Basophils # (Auto) 0.0 TH/MM3 CBC Comment AUTO DIFF Differential Comment AUTO DIFF CONFIRMED Platelet Estimate LOW Platelet Morphology Comment NORMAL Ovalocytes 1+ Laboratory Tests Test 02/06/17 06:31 02/07/17 04:06 Blood Urea Nitrogen 59 MG/DL 55 MG/DL Creatinine 0.92 MG/DL 0.90 MG/DL Random Glucose 218 MG/DL 261 MG/DL Total Protein 5.5 GM/DL 5.5 GM/DL Albumin 2.4 GM/DL 2.4 GM/DL Calcium Level 8.4 MG/DL 8.2 MG/DL Phosphorus Level 2.7 MG/DL 2.2 MG/DL Magnesium Level 2.3 MG/DL 2.3 MG/DL Alkaline Phosphatase 72 U/L 70 U/L Aspartate Amino Transf (AST/SGOT) 30 U/L 19 U/L Alanine Aminotransferase (ALT/SGPT) 161 U/L 118 U/L Total Bilirubin 0.8 MG/DL 0.8 MG/DL Sodium Level 137 MEQ/L 140 MEQ/L Potassium Level 3.9 MEQ/L 4.3 MEQ/L Chloride Level 101 MEQ/L 104 MEQ/L Carbon Dioxide Level 28.0 MEQ/L 28.6 MEQ/L Anion Gap 8 MEQ/L 7 MEQ/L Estimat Glomerular Filtration Rate 84 ML/MIN 86 ML/MIN Microbiology Date/Time Source Procedure Growth Status 02/04/17 16:45 Fluid Pleural Fluid Fungal Smear - Final NO FUNGAL ELEMENTS SEEN. Resulted 02/04/17 16:45 Fluid Pleural Fluid Fungal Culture Pending Resulted 02/04/17 16:45 Fluid Pleural Fluid Acid Fast Stain - Final NO ACID FAST BACILLI SEEN Resulted 02/04/17 16:45 Fluid Pleural Fluid Mycobacterial Culture Pending Resulted 02/04/17 16:45 Fluid Pleural Fluid Gram Stain - Final Complete 02/04/17 16:45 Fluid Pleural Fluid Body Fluid Culture - Final NO GROWTH IN 72 HRS.--AEROBICALLY OR ... Complete Imaging Chest X-Ray 02/06/17 0600 Signed Impressions: Service Date/Time: Monday, February 06, 2017 04:30 - CONCLUSION: 1. Persistent prominent consolidation left mid and lower lung. 2. No patchy infiltrates in the lower lateral right lung without consolidation. 3. Interval placement of gastric tube; cannot confirm that the tube passes into the stomach due to patient positioning and technical factors. Kulwant Gupta MD Chest X-Ray 02/05/17 0600 Signed Impressions: Service Date/Time: January 04:19 - CONCLUSION: 1. Bibasilar pulmonary infiltrates more pronounced on the left with a small effusion. These are unchanged. 2. Right thoracostomy tube without pneumothorax. 3. Mild cardiomegaly. Kulwant Cowart Jr., MD Chest X-Ray 02/04/17 0000 Signed Impressions: Service Date/Time: Saturday, February 04, 2017 17:06 - CONCLUSION: Small bore chest tube in place with reduction in the amount of effusion. Everett Pollock MD FACR Chest X-Ray 02/04/17 0000 Signed Impressions: Service Date/Time: Saturday, February 04, 2017 04:31 - CONCLUSION: Unchanged exam with bilateral pleural effusions and bibasilar pulmonary infiltrates. Kulwant Cowart Jr., MD Chest X-Ray 02/02/17 0000 Signed Impressions: Service Date/Time: Thursday, February 02, 2017 07:55 - CONCLUSION: Slow interval improvement. Supportive apparatus good position. Everett Pollock MD FACR Liver Ultrasound 02/01/17 0000 Signed Impressions: Service Date/Time: Wednesday, February 01, 2017 16:32 - CONCLUSION: 1. Cirrhotic appearing liver with trace ascites in the pelvis. 2. Gallbladder wall thickening and mild pericholecystic fluid without gallstones. These findings are routinely seen in the setting of cirrhosis. If there is significant clinical concern regarding cholecystitis, HIDA scan may be performed. 3. Bilateral pleural effusions. Escobar Joiner MD Chest X-Ray 01/31/17 0828 Signed Impressions: Service Date/Time: Tuesday, January 31, 2017 10:37 - CONCLUSION: 1. ET tube in good position. 2. Clinically. 3. Bilateral pleural effusions with partial right. 4. Consolidation/atelectasis at the bases being worse on the right. Washington Chou MD Chest CT 01/31/17 0000 Signed Impressions: Service Date/Time: Tuesday, January 31, 2017 12:52 - CONCLUSION: 1. Moderate bilateral pleural effusions with associated bibasilar airspace consolidation. 2. Mild patchy airspace disease in the lingula and right middle lobe. 3. Diffuse soft tissue prominence of the mid to distal esophagus with esophageal stent in place consistent with history of esophageal CA. Administered contrast extends to the proximal esophagus. 4. ETT in good position. NGT just be in the GE junction. 5. Prominent coronary artery calcifications. Escoabr Joiner MD Abdomen/Pelvis CT 01/31/17 0000 Signed Impressions: Service Date/Time: Tuesday, January 31, 2017 12:52 - CONCLUSION: 1. No definite CT findings to explain patient's lactic acidosis. Specifically, no evidence for bowel infarction or perforation. 2. Moderate bilateral pleural effusions with associated bilateral lower lobe airspace consolidation. 3. Diffusely prominent distal esophagus with distal esophageal stent in place. NGT courses through the stent with tip just beyond the GE junction. 4. Cirrhotic appearing liver without evidence for significant ascites or focal drainable fluid collection. Escobar Joiner MD Physical Exam GENERAL: Sedated, on the vent, not in distress SKIN: Warm and dry, no rash, edematous. No jaundice. NO embolic lesions HEAD: Atraumatic. Normocephalic. EYES: Pupils equal and round and reactive. NO petechia or hemorrhage. No scleral icterus. No injection or drainage. . ENT: Nose without bleeding or purulent drainage. Orally intubated NECK: Trachea midline. Supple, nontender. CARDIOVASCULAR: Regular rate and rhythm. Harsh systolic murmur at base RESPIRATORY/CHEST: Symmetric, respirations. Coarse BS bilaterally, with some rhonchi on L, decreased at bases. CT R with serosanguineous fluid GASTROINTESTINAL: Abdomen soft, non-tender, nondistended. . No guarding. Bowel sounds present. GENITOURINARY: Saxena catheter in place with yellow urine MUSCULOSKELETAL: Extremities without clubbing, cyanosis. Has edema of hands and feet. No mottling or clubbing. NEUROLOGICAL: Sedated PSYCHIATRIC: unable to assess LINE: NO evidence of infection Assessment & Plan Remarks IMPRESSION Shock, sepsis, lactic acidosis, leukocytosis > 22K on presentation, resolved - his lactic acidemia improved - source? lung, UA with some pyuria Respiratory failure, ?PNA, plus CHF - sputum with normal adama Cardiomyopathy with severe AI, mod MR and TR Recent Rx for MSSA sepsis Recent Rx PSAE PPNA Known head and neck CA Esophageal CA, S/P stent Recent workup for pleural and pericardial effusions, no malignancy, (+) inflammation PCN allery but tolerated Cephalosporins PLAN Continue cefepime - give 7 days (end date 02/07) Monitor progress Patient now has DNR status Family to decide about wuthdrawal and hospice this weekend Palliative medicine evaluating goals of care Weaning per CCM as tolerated D/W Carola Dick MD Feb 07, 2017 13:28
[2017-02-07] MEDS ORDERED: SODIUM CHLORIDE 0.9% FLUSH 10 ML FLUSH IV FLUSH PRN (16:45)
--- NOTE | 2017-02-07 18:00 | RADRPT ---
EXAM DATE/TIME: 02/07/2017 17:44 CORRECTION Corrected on: February 07, 2017; [facility] COMPARISON: CHEST SINGLE AP, February 07, 2017, 4:39. INDICATIONS : PICC line placement. MEDICAL HISTORY : Diabetes mellitus type II. Carcinoma, esophageal. Squamous cell carcinoma. SURGICAL HISTORY : Appendectomy. Coronary artery stent. ENCOUNTER: Initial ACUITY: 1 day PAIN SCORE: Non-responsive. LOCATION: Bilateral chest FINDINGS: A single AP supine portable view of the chest was obtained and demonstrates interval placement of a r ight-sided PICC line tip projected over the region of the superior vena cava. The patient is mildly r otated. The heart size remains moderately enlarged. An endotracheal tube remains in place with the ti p approximately 5 cm above the elizabeth. There is an esophageal stent catheter in place. There is a sma ll right-sided chest tube in place with no pneumothorax. Abnormal opacity remains at the lung bases l eft greater than right with obscuration of the left hemidiaphragm and blunting of the left costophren ic angle. The previously noted nasogastric tube has been removed. CONCLUSION: 1. Interval placement of right-sided PICC line. 2. Small bore right-sided chest tube with no pneumothorax. 3. Abnormal opacity remains at the lung bases left greater than right with evidence of left effusion. 4. Esophageal stent catheter again noted. 5. Interval removal of nasogastric tube. Bebeto Serrano MD on February 07, 2017 at 17:57 Board Certified Radiologist. This report was verified electronically. Bebeto Serrano MD on February 07, 2017 at 18:36 Board Certified Radiologist. This report was verified electronically.
[2017-02-07] MEDS ORDERED: FAT EMULSION 20% INJ 250 ML (@10 mls/hr) IV-CENTRAL SCH (20:00)
[2017-02-07] MEDS: CLINIMIX E 4.25/25 2000 mL- >42 mls/hr IV-CENTRAL SCH ×3 (20:19)
[2017-02-07] MEDS: INSULIN DETEMIR 100 UNITS/ML VIAL SQ SCH (20:20)
[2017-02-08] VITALS (24 sets, daily range): BP systolic 110–172; BP diastolic 53–76; PULSE 75–121; RESP 0–28; TEMP 97.3–99.4; O2SAT 93–100
[2017-02-08 00:11] LABS: INTERNATIONAL NORMALIZED RATIO 1.5 RATIO; PROTHROMBIN TIME - PATIENT 16.4 SEC (9.8-11.6)
[2017-02-08] MEDS: INSULIN NovoLIN REGULAR SUPPLEMENTAL SCALE SQ SCH (02:00)
[2017-02-08] MEDS: RESP: ALBUTEROL 2.5 MG/IPRATROPIUM 0.5 MG NEB (SCH) INH ×4 (02:57→20:08)
[2017-02-08] MEDS ORDERED: DEXTROSE 50% IN WATER 50 ML VIAL(D50) IV PUSH PRN ×3 (03:15→14:30)
[2017-02-08] MEDS ORDERED: GLUCAGON 1 MG/ML VIAL OTHER PRN (03:15)
[2017-02-08] MEDS: INSULIN ASPART SUPPLEMENTAL SCALE SQ SCH ×2 (04:00→08:00)
[2017-02-08] MEDS: CHLORHEXIDINE GLUCONATE 2 % 1 PACK (2 CLOTHS) TOP SCH (04:00)
[2017-02-08] MEDS: MIDAZOLAM 100 MG/100 ML INJ 100 ML IV PRN (04:25)
[2017-02-08 05:39] LABS: HEMATOCRIT 30.6 % (39.0-51.0); MEAN CELL VOLUME 93.1 FL (80.0-100.0); MEAN CORPUSCULAR HEMOGLOBIN 29.2 PG (27.0-34.0); MEAN CORPUSCULAR HGB CONC 31.3 % (32.0-36.0); PLATELET COUNT 76 TH/MM3 (150-450); RED BLOOD COUNT 3.29 MIL/MM3 (4.50-5.90); RED CELL DISTRIBUTION WIDTH 17.8 % (11.6-17.2); WHITE BLOOD COUNT 7.4 TH/MM3 (4.0-11.0)
[2017-02-08 05:47] LABS: REVIEW FLAG FINAL
[2017-02-08 06:00] LABS: ALKALINE PHOSPHATASE 65 U/L (45-117); ALT (GPT) 85 U/L (12-78); ANION GAP 5 MEQ/L (5-15); AST (GOT) 22 U/L (15-37); BLOOD UREA NITROGEN 54 MG/DL (7-18); CHLORIDE 106 MEQ/L (98-107); GLOMERULAR FILTRATION RATE 87 ML/MIN (>89); MAGNESIUM 2.3 MG/DL (1.5-2.5); POTASSIUM 4.3 MEQ/L (3.5-5.1); SODIUM (NA) 141 MEQ/L (136-145); TOTAL BILIRUBIN ADULT 0.6 MG/DL (0.2-1.0)
[2017-02-08] MEDS: INSULIN DETEMIR 100 UNITS/ML VIAL SQ SCH ×2 (08:51→20:42)
[2017-02-08] MEDS: ASPIRIN EC 81 MG TABEC PO SCH ×2 (08:52→08:59)
[2017-02-08] MEDS: DOCUSATE SODIUM 50 MG/SENNA 8.6 MG TAB PO SCH ×2 (08:52→20:42)
[2017-02-08] MEDS: CLOPIDOGREL 75 MG TAB PO SCH ×2 (08:52→09:00)
[2017-02-08] MEDS: HYDROCORTISONE SOD SUCCINATE 100 MG VIAL IV PUSH SCH (08:52)
[2017-02-08] MEDS: SODIUM CHLORIDE 0.9% FLUSH 10 ML FLUSH IV FLUSH SCH (08:55)
[2017-02-08] MEDS: PANTOPRAZOLE SODIUM 40 MG VIAL IV PUSH SCH ×2 (08:55→20:41)
[2017-02-08] MEDS: COLLAGENASE OINT 30 GM TUBE TOPICAL SCH (08:56)
[2017-02-08] MEDS ORDERED: MISC INFORMATION OTHER ONE ×2 (09:15→14:30)
--- NOTE | 2017-02-08 09:32 | HHI.CCPN ---
Subjective Remarks/Hospital Course The patient is a 61-year-old male with multiple comorbidities which include esophageal adenocarcinoma status post stent placement in December, coronary artery disease with previous stent placement in the proximal circumflex, squamous cell carcinoma of the skin and anemia and a history of atrial flutter. The patient presented to the [facility] Emergency Department from a local intermediate for hypoxemia and severe respiratory distress. On arrival to the emergency room, the patient was hypotensive with a systolic blood pressure in the 80s, bradycardic with heart rate in the 50s and had a temperature of 97.6. Due to severe respiratory distress, he was subsequently intubated and placed on full mechanical ventilation. In addition, Versed drip was initiated. In the emergency room, the patient was found to have wide complex tachycardia and his laboratory data showed severe hyperkalemia with a potassium level of 6.9 and lactic acidosis with a lactic acid level of 12.5. The patient went into PEA arrest in the emergency room and he received epinephrine, bicarb with successful return of spontaneous circulation. He received approximately 1.5 liters of crystalloids and was started on Levophed drip which is currently 20 mics. For hyperkalemia, the patient was given 2 ampules of bicarb, calcium gluconate and 10 units of IV insulin D50 and placed on bicarb drip. A chest x-ray post- intubation showed ET tube above the elizabeth, bilateral pleural effusions with consolidation and atelectasis at the bases right greater than left. An ABG post intubation appears venous blood gas which showed a pH of 7.13, CO2 28, pAO2 44, bicarb of 9, saturation 53% with a base excess of -18.6. This was on assist control ventilation rate of 16, tidal volume 550, PEEP of 5 and 100% FIO2. The patient is scheduled for CT scan of the abdomen and pelvis along with CT scan of the chest. He was discharged from the hospital yesterday after he was admitted on December 24. On his previous admission, the patient had an Pseudomonas pneumoniae. In addition, he had MSSA bacteremia back in November. 02/01 Patient remains intubated with versed and Fentnayl drips. Levophed down 12 mics from 20 and on Vasopressin 0.04 mics. Lactic acid is trending down 2.9 this morning from 12.5 on arrival. On Bicarb drip. Afebrile. 02/02 No events overnight. Sedated with Versed and Fentanyl drips. Levophed down 6 mics and on Vasopressin 0.04. Renal function is improving with Cr: 1.17 from 1.86. Off Bicarb drip. 02/03 Patient was in SVT last night HR 204 given Adenosine 6mg+12mg then cardioverted with 50J now in NSR HR 70's. Sedated with Versed and Fentanyl drips. Given 2units PRBC overnight Hgb 9.2 this morning. Off all pressors. For EGD today. 02/04: Remains intubated sedated. Wakes up easily follows commands. Remains off all pressors platelet count decreasing 92 today. Hemoglobin stable. EGD esophageal mass/known Ca in the mid esophagus this was friable and when touched was oozing blood, an esophageal stent this was in good position and covering most of the mass but there is overgrowth more proximal to the stent does not appear to be occluding the esophagus 02/05: Afebrile. Minimal sedation. Hemoglobin remained stable. OG tube replaced by RN this AM. Failed CPAP trials after 2 minutes. 02/06: Resting comfortably in no acute distress. We'll attempt C Pap trial again today. Tube feeds not initiated. Resting comfortable in bed 02/07: Afebrile. Resting in bed. Failed PSV trial yesterday. Currently resting in bed in no distress. Subjective 02/08: Afebrile. Currently on PSV trial. Resting in bed in no acute distress. TPN initiated. Insulin drip initiated Objective Vital Signs Date Time Temp Pulse Resp B/P (MAP) Pulse Ox O2 Delivery O2 Flow Rate FiO2 02/08/17 09:06 35 02/08/17 09:06 96 02/08/17 06:00 75 02/08/17 04:00 97.9 18 110/57 (74) Intake and Output 02/08/17 02/08/17 02/09/17 08:00 16:00 00:00 Intake Total 774 ml Output Total 1420 ml Balance -646 ml Result Diagram: 02/08/17 0417 02/08/17 0417 Other Results Microbiology Date/Time Source Procedure Growth Status 01/31/17 08:35 Blood Peripheral Aerobic Blood Culture - Final NO GROWTH IN 5 DAYS Complete 01/31/17 08:35 Blood Peripheral Anaerobic Blood Culture - Final NO GROWTH IN 5 DAYS Complete 02/04/17 16:45 Fluid Pleural Fluid Fungal Smear - Final NO FUNGAL ELEMENTS SEEN. Resulted 02/04/17 16:45 Fluid Pleural Fluid Fungal Culture Pending Resulted 01/31/17 21:40 Sputum Endotracheal Gram Stain - Final Complete 01/31/17 21:40 Sputum Endotracheal Sputum Culture - Final HEAVY GROWTH NORMAL RESPIRATORY EDE Complete 01/31/17 13:35 Urine Catheterized Urine Legionella Antigen - Final PRESUMPTIVE NEGATIVE FOR LEGIONELLA P... Complete 01/31/17 13:35 Urine Catheterized Urine Streptococcus pneumoniae Antigen (M - Final PRESUMPTIVE NEGATIVE FOR STREPTOCOCCU... Complete Imaging Last Impressions Chest X-Ray 02/07/17 0600 Signed Impressions: Service Date/Time: Tuesday, February 07, 2017 04:39 - CONCLUSION: 1. Left lower lung consolidation. 2. No evidence of pneumothorax on the right side with loop catheter lower lateral chest. 3. The location of the tip of the gastric tube is not well-seen on this exam and is probably within the distal esophagus. Kulwant Gupta MD Abdomen X-Ray 02/06/17 0000 Signed Impressions: Service Date/Time: Monday, February 06, 2017 14:37 - CONCLUSION: Benign abdomen. Negative for nasogastric tube Raudel Greenberg MD Liver Ultrasound 02/01/17 0000 Signed Impressions: Service Date/Time: Wednesday, February 01, 2017 16:32 - CONCLUSION: 1. Cirrhotic appearing liver with trace ascites in the pelvis. 2. Gallbladder wall thickening and mild pericholecystic fluid without gallstones. These findings are routinely seen in the setting of cirrhosis. If there is significant clinical concern regarding cholecystitis, HIDA scan may be performed. 3. Bilateral pleural effusions. Escobar Joiner MD Chest CT 01/31/17 0000 Signed Impressions: Service Date/Time: Tuesday, January 31, 2017 12:52 - CONCLUSION: 1. Moderate bilateral pleural effusions with associated bibasilar airspace consolidation. 2. Mild patchy airspace disease in the lingula and right middle lobe. 3. Diffuse soft tissue prominence of the mid to distal esophagus with esophageal stent in place consistent with history of esophageal CA. Administered contrast extends to the proximal esophagus. 4. ETT in good position. NGT just be in the GE junction. 5. Prominent coronary artery calcifications. Escobar Joiner MD Abdomen/Pelvis CT 01/31/17 0000 Signed Impressions: Service Date/Time: Tuesday, January 31, 2017 12:52 - CONCLUSION: 1. No definite CT findings to explain patient's lactic acidosis. Specifically, no evidence for bowel infarction or perforation. 2. Moderate bilateral pleural effusions with associated bilateral lower lobe airspace consolidation. 3. Diffusely prominent distal esophagus with distal esophageal stent in place. NGT courses through the stent with tip just beyond the GE junction. 4. Cirrhotic appearing liver without evidence for significant ascites or focal drainable fluid collection. Escobar Joiner MD Objective Remarks GENERAL: 61-year-old male, critically ill currently orotracheally intubated SKIN: Warm and dry. Positive sacral decubitus ulcer stage II HEAD: Normocephalic. EYES: No scleral icterus. No injection or drainage. NECK: Supple, trachea midline. No JVD or lymphadenopathy. CARDIOVASCULAR: Regular rate and rhythm without murmurs, gallops, or rubs. RESPIRATORY: Breath sounds equal bilaterally. Coarse rhonchi appreciated bilaterally. Right chest tube is clean dry and intact. -450 SS GASTROINTESTINAL: Abdomen soft, non-tender, nondistended. MUSCULOSKELETAL: 2+ bilateral lower extremity edema Neuro: Currently intubated and sedated. Positive gag. Positive corneal reflex. A/P Assessment and Plan Plan Neuro/Psych: On Fentanyl drip at 200 grams an hour and midazolam drip at 3 mg an hour for sedation. Goal of RA SS -2 Daily sedation vacation. Pulm: Acute hypoxemic respiratory failure Right pleural effusion Continue with vent support and maintain saturations>92%. PRVC 14/500/05/22/39 Ventilator bundle Albuterol/ipratropium aerosols every 4 hours with albuterol every 2 hours. Dyspnea hydrocortisone 50mg daily through 02/12 SBT daily as michael. CT chest: Moderate bilateral pleural effusions with associated bibasilar airspace consolidation. Mild patchy airspace disease in the lingula and right middle lobe. Esophageal CA. -1100 SS -20 cm H2O chest tube CV: Severe aortic regurgitation History of coronary disease status post stent circumflex Coronary artery disease Dyslipidemia Hypertension Off all pressors monitor HR and BP keep MAP>65mmHg Patient went into SVT 02/02 night given Adenosine and was cardioverted with 50J now in NSR HR 70's. Okay to with ASA 81 mg daily and clopidogrel 75 mg daily- Discussed with Dr. Tejeda however unable to place tube through esophageal stent. We'll start aspirin 300 mg per rectum daily. Echo from 01/07 showed EF 60% to 65%. Echo 02/01 revealed EF 40-45%. Bilateral atrial enlargement. LVH. Holding atorvastatin 40 mg by mouth daily in light of elevated LFTs. Holding metoprolol 25 mg every 8 hours, amiodarone 200 mg daily and diltiazem 90 mg every 6 hours for atrial fibrillation. Resume when clinically indicated We'll schedule metoprolol 5 mg IV every [address] surgery for aVR. PA consulted noted. No plans for intervention at the present time Renal/: Monitor renal function, intakes and outputs and avoid nephrotoxins. 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 Gallbladder wall thickening and mild pericholecystic fluid without gallstone hepatitis profile : Hep C reactive ab. Genotype and viral load pending on pantoprazole 40 mg IV Q12 for GI prophylaxis. CT abdomen/pelvis: no bowel infarction or perforation. bilateral lower lobe airspace consolidation. Diffusely prominent distal esophagus with distal esophageal stent in place. EGD By Dr. Tejeda 02/03 esophageal Ca in the mid esophagus friable oozing blood, esophageal stent in good position and covering most of the mass but there is overgrowth more proximal to the stent does not appear to be occluding the esophagus Will give Relistor and glycerin suppository for bowel movement yesterday. Not successful soapsuds enema today. Start TPN 02/07 with PICC line placement ID; Continue with abx (cefepime) ID is following Monitor for signs of infection which include fever and WBCs. Follow up on blood, sputum, urine cultures: NGTD Strep pneumoniae and Legionella urinary antigen negative. 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 S/P mohs surgery September 2015 Normocytic anemia Thrombocytopenia Status post parotidectomy and radical neck dissection in September 2016. Monitor CBC, s/p transfusion 2units PRBC 02/02 overnight Hgb 9.1 this morning Oncology consulted ( patient known to him) patient is on chemo and XRT for his esophageal ca. not a candidate due to underlying critical illness Endo: Diabetes mellitus SSI with Accu-Chek q. 4 hours for glycemic control. On Levemir 40 units daily metformin 1000 mg twice a day at home. Start Levemir 20 units subcutaneous twice a day today and insulin drip algorithm #2 GI prophylaxis with pantoprazole 40 mg IV Q12 DVT prophylaxis with SCDs. No chemical prophylaxis due to anemia requiring blood transfusion and thrombocytopenia Lines: Right Femoral Central line placed by ED 01/31, Right femoral Art Line placed 01/31. DC both 02/04/17. Right upper extremity PICC line 02/07 Palliative care is following of care. DNR status CCT 30 mins Hubert Yoder MD Feb 08, 2017 09:32
--- NOTE | 2017-02-08 10:04 | HHI.CCPN ---
Subjective Remarks/Hospital Course The patient is a 61-year-old male with multiple comorbidities which include esophageal adenocarcinoma status post stent placement in December, coronary artery disease with previous stent placement in the proximal circumflex, squamous cell carcinoma of the skin and anemia and a history of atrial flutter. The patient presented to the [facility] Emergency Department from a local residential for hypoxemia and severe respiratory distress. On arrival to the emergency room, the patient was hypotensive with a systolic blood pressure in the 80s, bradycardic with heart rate in the 50s and had a temperature of 97.6. Due to severe respiratory distress, he was subsequently intubated and placed on full mechanical ventilation. In addition, Versed drip was initiated. In the emergency room, the patient was found to have wide complex tachycardia and his laboratory data showed severe hyperkalemia with a potassium level of 6.9 and lactic acidosis with a lactic acid level of 12.5. The patient went into PEA arrest in the emergency room and he received epinephrine, bicarb with successful return of spontaneous circulation. He received approximately 1.5 liters of crystalloids and was started on Levophed drip which is currently 20 mics. For hyperkalemia, the patient was given 2 ampules of bicarb, calcium gluconate and 10 units of IV insulin D50 and placed on bicarb drip. A chest x-ray post- intubation showed ET tube above the elizabeth, bilateral pleural effusions with consolidation and atelectasis at the bases right greater than left. An ABG post intubation appears venous blood gas which showed a pH of 7.13, CO2 28, pAO2 44, bicarb of 9, saturation 53% with a base excess of -18.6. This was on assist control ventilation rate of 16, tidal volume 550, PEEP of 5 and 100% FIO2. The patient is scheduled for CT scan of the abdomen and pelvis along with CT scan of the chest. He was discharged from the hospital yesterday after he was admitted on December 24. On his previous admission, the patient had an Pseudomonas pneumoniae. In addition, he had MSSA bacteremia back in November. 02/01 Patient remains intubated with versed and Fentnayl drips. Levophed down 12 mics from 20 and on Vasopressin 0.04 mics. Lactic acid is trending down 2.9 this morning from 12.5 on arrival. On Bicarb drip. Afebrile. 02/02 No events overnight. Sedated with Versed and Fentanyl drips. Levophed down 6 mics and on Vasopressin 0.04. Renal function is improving with Cr: 1.17 from 1.86. Off Bicarb drip. 02/03 Patient was in SVT last night HR 204 given Adenosine 6mg+12mg then cardioverted with 50J now in NSR HR 70's. Sedated with Versed and Fentanyl drips. Given 2units PRBC overnight Hgb 9.2 this morning. Off all pressors. For EGD today. 02/04: Remains intubated sedated. Wakes up easily follows commands. Remains off all pressors platelet count decreasing 92 today. Hemoglobin stable. EGD esophageal mass/known Ca in the mid esophagus this was friable and when touched was oozing blood, an esophageal stent this was in good position and covering most of the mass but there is overgrowth more proximal to the stent does not appear to be occluding the esophagus 02/05: Afebrile. Minimal sedation. Hemoglobin remained stable. OG tube replaced by RN this AM. Failed CPAP trials after 2 minutes. 02/06: Resting comfortably in no acute distress. We'll attempt C Pap trial again today. Tube feeds not initiated. Resting comfortable in bed 02/07: Afebrile. Resting in bed. Failed PSV trial yesterday. Currently resting in bed in no distress. Subjective 02/08: Afebrile. Currently on PSV trial. Resting in bed in no acute distress. TPN initiated. Insulin drip initiated Objective Vital Signs Date Time Temp Pulse Resp B/P (MAP) Pulse Ox O2 Delivery O2 Flow Rate FiO2 02/08/17 09:06 35 02/08/17 09:06 96 02/08/17 06:00 75 02/08/17 04:00 97.9 18 110/57 (74) Intake and Output 02/08/17 02/08/17 02/09/17 08:00 16:00 00:00 Intake Total 774 ml Output Total 1420 ml Balance -646 ml Result Diagram: 02/08/17 0417 02/08/17416 Imaging Last Impressions Chest X-Ray 02/07/17 0600 Signed Impressions: Service Date/Time: Tuesday, February 07, 2017 04:39 - CONCLUSION: 1. Left lower lung consolidation. 2. No evidence of pneumothorax on the right side with loop catheter lower lateral chest. 3. The location of the tip of the gastric tube is not well-seen on this exam and is probably within the distal esophagus. Kulwant Gupta MD Abdomen X-Ray 02/06/17 0000 Signed Impressions: Service Date/Time: Monday, February 06, 2017 14:37 - CONCLUSION: Benign abdomen. Negative for nasogastric tube Raudel Greenberg MD Liver Ultrasound 02/01/17 0000 Signed Impressions: Service Date/Time: Wednesday, February 01, 2017 16:32 - CONCLUSION: 1. Cirrhotic appearing liver with trace ascites in the pelvis. 2. Gallbladder wall thickening and mild pericholecystic fluid without gallstones. These findings are routinely seen in the setting of cirrhosis. If there is significant clinical concern regarding cholecystitis, HIDA scan may be performed. 3. Bilateral pleural effusions. Escobar Joiner MD Chest CT 01/31/17 0000 Signed Impressions: Service Date/Time: Tuesday, January 31, 2017 12:52 - CONCLUSION: 1. Moderate bilateral pleural effusions with associated bibasilar airspace consolidation. 2. Mild patchy airspace disease in the lingula and right middle lobe. 3. Diffuse soft tissue prominence of the mid to distal esophagus with esophageal stent in place consistent with history of esophageal CA. Administered contrast extends to the proximal esophagus. 4. ETT in good position. NGT just be in the GE junction. 5. Prominent coronary artery calcifications. Escobar Joiner MD Abdomen/Pelvis CT 01/31/17 0000 Signed Impressions: Service Date/Time: Tuesday, January 31, 2017 12:52 - CONCLUSION: 1. No definite CT findings to explain patient's lactic acidosis. Specifically, no evidence for bowel infarction or perforation. 2. Moderate bilateral pleural effusions with associated bilateral lower lobe airspace consolidation. 3. Diffusely prominent distal esophagus with distal esophageal stent in place. NGT courses through the stent with tip just beyond the GE junction. 4. Cirrhotic appearing liver without evidence for significant ascites or focal drainable fluid collection. Escobar Joiner MD Objective Remarks GENERAL: 61-year-old male, critically ill currently orotracheally intubated SKIN: Warm and dry. Positive sacral decubitus ulcer stage II HEAD: Normocephalic. EYES: No scleral icterus. No injection or drainage. NECK: Supple, trachea midline. No JVD or lymphadenopathy. CARDIOVASCULAR: Regular rate and rhythm without murmurs, gallops, or rubs. RESPIRATORY: Breath sounds equal bilaterally. Coarse rhonchi appreciated bilaterally. Right chest tube is clean dry and intact. -450 SS GASTROINTESTINAL: Abdomen soft, non-tender, nondistended. MUSCULOSKELETAL: 2+ bilateral lower extremity edema Neuro: Currently intubated and sedated. Positive gag. Positive corneal reflex. Vascular Central Line Catheter: Yes Assessment to: Continue Date of Insertion: Feb 07, 2017 Line: PICC Side: Right Location: Antecubital A/P Assessment and Plan Plan Neuro/Psych: On Fentanyl drip at 200 grams an hour and midazolam drip at 3 mg an hour for sedation. Goal of RA SS -2 Daily sedation vacation. Pulm: Acute hypoxemic respiratory failure Right pleural effusion Continue with vent support and maintain saturations>92%. PRVC 14/500/05/22/39 Ventilator bundle Albuterol/ipratropium aerosols every 4 hours with albuterol every 2 hours. Dyspnea hydrocortisone 50mg daily through 02/12 SBT daily as michael. CT chest: Moderate bilateral pleural effusions with associated bibasilar airspace consolidation. Mild patchy airspace disease in the lingula and right middle lobe. Esophageal CA. -1100 SS -20 cm H2O chest tube CV: Severe aortic regurgitation History of coronary disease status post stent circumflex Coronary artery disease Dyslipidemia Hypertension Off all pressors monitor HR and BP keep MAP>65mmHg Patient went into SVT 02/02 night given Adenosine and was cardioverted with 50J now in NSR HR 70's. Okay to with ASA 81 mg daily and clopidogrel 75 mg daily- Discussed with Dr. Tejeda however unable to place tube through esophageal stent. We'll start aspirin 300 mg per rectum daily. Echo from 01/07 showed EF 60% to 65%. Echo 02/01 revealed EF 40-45%. Bilateral atrial enlargement. LVH. Holding atorvastatin 40 mg by mouth daily in light of elevated LFTs. Holding metoprolol 25 mg every 8 hours, amiodarone 200 mg daily and diltiazem 90 mg every 6 hours for atrial fibrillation. Resume when clinically indicated We'll schedule metoprolol 5 mg IV every [address] surgery for aVR. PA consulted noted. No plans for intervention at the present time Renal/: Monitor renal function, intakes and outputs and avoid nephrotoxins. 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 Gallbladder wall thickening and mild pericholecystic fluid without gallstone hepatitis profile : Hep C reactive ab. Genotype and viral load pending on pantoprazole 40 mg IV Q12 for GI prophylaxis. CT abdomen/pelvis: no bowel infarction or perforation. bilateral lower lobe airspace consolidation. Diffusely prominent distal esophagus with distal esophageal stent in place. EGD By Dr. Tejeda 02/03 esophageal Ca in the mid esophagus friable oozing blood, esophageal stent in good position and covering most of the mass but there is overgrowth more proximal to the stent does not appear to be occluding the esophagus Will give Relistor and glycerin suppository for bowel movement yesterday. Not successful soapsuds enema today. Start TPN 02/07 with PICC line placement ID; Continue with abx (cefepime) ID is following Monitor for signs of infection which include fever and WBCs. Follow up on blood, sputum, urine cultures: NGTD Strep pneumoniae and Legionella urinary antigen negative. 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 S/P mohs surgery September 2015 Normocytic anemia Thrombocytopenia Status post parotidectomy and radical neck dissection in September 2016. Monitor CBC, s/p transfusion 2units PRBC 02/02 overnight Hgb 9.1 this morning Oncology consulted ( patient known to him) patient is on chemo and XRT for his esophageal ca. not a candidate due to underlying critical illness Endo: Diabetes mellitus SSI with Accu-Chek q. 4 hours for glycemic control. On Levemir 40 units daily metformin 1000 mg twice a day at home. Start Levemir 20 units subcutaneous twice a day today and insulin drip algorithm #2 GI prophylaxis with pantoprazole 40 mg IV Q12 DVT prophylaxis with SCDs. No chemical prophylaxis due to anemia requiring blood transfusion and thrombocytopenia Lines: Right Femoral Central line placed by ED 01/31, Right femoral Art Line placed 01/31. DC both 02/04/17. Right upper extremity PICC line 02/07 Palliative care is following of care. DNR status CCT 30 mins Hubert Yoder MD Feb 08, 2017 10:04
[2017-02-08] MEDS: INSULIN REGULAR (IV INFUSION) 100 UNITS in SODIUM CHLORIDE 0.9% INJ 99 ML IV SCH ×2 (10:10→18:06)
[2017-02-08] MEDS: ASPIRIN 300 MG SUPP RECTAL SCH (10:17)
[2017-02-08] MEDS: METOPROLOL TARTRATE 5 MG/5 ML VIAL IV PUSH SCH ×3 (10:38→20:41)
[2017-02-08] MEDS: ARTIFICIAL TEARS OPTH SOLN 15 ML BTL EACH EYE SCH ×2 (14:00→21:28)
[2017-02-08] MEDS ORDERED: INSULIN REGULAR (IV INFUSION) 100 UNITS in SODIUM CHLORIDE 0.9% INJ 99 ML IV SCH (14:30)
[2017-02-08] MEDS ORDERED: INSULIN HUMAN NPH 1,000 UNITS/10 ML VIAL SQ ONE (14:30)
--- NOTE | 2017-02-08 17:56 | HHI.IDPN ---
Subjective Subjective Remarks Chart reviewed Patient known to me from his previous admissions He has known head and neck CA, and esophageal mass, S/P esophageal stent during his last hospitalization He was treated for high grade MSSA bacteremia, due to infected port Port removed and he completed Abx Rx with Ancef on Jan 15 He was also treated for PSAE PNA during his last admission He also had evidence of serositis and had pleural effusions and pericardial effusions that were both drained, C/S negative (but he was on Abx), cytology negative for malignancy He was D/C to SNF 01/30 and readmitted 01/31 Notes reviewed Temps ok On CPAP, not tachypneic Remains in NSR Has CT R side - fluid is transudative; a lot of output CXR stable infiltrate L Echo with multiple valvular insufficiency including severe AI Antibiotics cefepime - finished 02/07 Lines PIV Past Medical History Reviewed Allergies: Coded Allergies: penicillin G (Unverified Allergy, Mild, Hives, 12/30/16) Objective . Vital Signs Date Time Temp Pulse Resp B/P (MAP) Pulse Ox O2 Delivery O2 Flow Rate FiO2 02/08/17 16:01 98.3 97 11 121/56 (77) 94 02/08/17 16:00 35 02/08/17 16:00 97 02/08/17 15:00 117 19 160/70 (100) 95 02/08/17 14:42 94 35 02/08/17 14:00 118 28 155/67 (96) 93 02/08/17 14:00 118 02/08/17 13:00 112 14 141/65 (90) 95 02/08/17 12:01 98.1 110 9 144/63 (90) 95 02/08/17 12:00 110 02/08/17 12:00 35 02/08/17 11:01 97 10 110/58 (75) 96 02/08/17 10:00 121 16 159/73 (101) 97 02/08/17 10:00 121 02/08/17 09:06 35 02/08/17 09:06 96 35 02/08/17 09:00 107 18 172/76 (108) 95 02/08/17 08:00 97.9 77 0 113/53 (73) 100 02/08/17 08:00 77 02/08/17 08:00 35 02/08/17 07:42 100 35 02/08/17 06:00 75 02/08/17 04:08 100 35 02/08/17 04:00 97.9 77 18 110/57 (74) 100 02/08/17 04:00 35 02/08/17 04:00 77 02/08/17 02:00 78 02/08/17 00:12 100 35 02/08/17 00:00 81 02/08/17 00:00 97.3 81 18 111/59 (76) 100 02/08/17 00:00 35 02/07/17 22:00 81 02/07/17 20:45 100 35 02/07/17 20:00 97.9 83 18 112/55 (74) 100 02/07/17 20:00 83 02/07/17 20:00 35 02/07/17 18:00 84 02/08/17 02/08/17 02/09/17 15:00 23:00 07:00 Intake Total 350 ml 916 ml Output Total 1275 ml Balance 350 ml -359 ml IV Total 350 ml 916 ml Output Urine Total 275 ml Chest Tube Drainage Total 1000 ml # Bowel Movements 0 . Laboratory Tests Test 02/07/17 04:06 02/08/17 04:17 White Blood Count 7.3 TH/MM3 7.4 TH/MM3 Red Blood Count 3.47 MIL/MM3 3.29 MIL/MM3 Hemoglobin 10.2 GM/DL 9.6 GM/DL Hematocrit 31.6 % 30.6 % Mean Corpuscular Volume 91.0 FL 93.1 FL Mean Corpuscular Hemoglobin 29.3 PG 29.2 PG Mean Corpuscular Hemoglobin Concent 32.2 % 31.3 % Red Cell Distribution Width 17.5 % 17.8 % Platelet Count 86 TH/MM3 76 TH/MM3 Mean Platelet Volume 9.4 FL 10.0 FL Laboratory Tests Test 02/07/17 04:06 02/08/17 04:17 Blood Urea Nitrogen 55 MG/DL 54 MG/DL Creatinine 0.90 MG/DL 0.89 MG/DL Random Glucose 261 MG/DL 440 MG/DL Total Protein 5.5 GM/DL 5.2 GM/DL Albumin 2.4 GM/DL 2.1 GM/DL Calcium Level 8.2 MG/DL 7.9 MG/DL Phosphorus Level 2.2 MG/DL 2.3 MG/DL Magnesium Level 2.3 MG/DL 2.3 MG/DL Alkaline Phosphatase 70 U/L 65 U/L Aspartate Amino Transf (AST/SGOT) 19 U/L 22 U/L Alanine Aminotransferase (ALT/SGPT) 118 U/L 85 U/L Total Bilirubin 0.8 MG/DL 0.6 MG/DL Sodium Level 140 MEQ/L 141 MEQ/L Potassium Level 4.3 MEQ/L 4.3 MEQ/L Chloride Level 104 MEQ/L 106 MEQ/L Carbon Dioxide Level 28.6 MEQ/L 30.0 MEQ/L Anion Gap 7 MEQ/L 5 MEQ/L Estimat Glomerular Filtration Rate 86 ML/MIN 87 ML/MIN Triglycerides Level 126 MG/DL Imaging Chest X-Ray 02/06/17 0600 Signed Impressions: Service Date/Time: Monday, February 06, 2017 04:30 - CONCLUSION: 1. Persistent prominent consolidation left mid and lower lung. 2. No patchy infiltrates in the lower lateral right lung without consolidation. 3. Interval placement of gastric tube; cannot confirm that the tube passes into the stomach due to patient positioning and technical factors. Kulwant Gupta MD Chest X-Ray 02/05/17 0600 Signed Impressions: Service Date/Time: January 04:19 - CONCLUSION: 1. Bibasilar pulmonary infiltrates more pronounced on the left with a small effusion. These are unchanged. 2. Right thoracostomy tube without pneumothorax. 3. Mild cardiomegaly. Kulwant Cowart Jr., MD Chest X-Ray 02/04/17 0000 Signed Impressions: Service Date/Time: Saturday, February 04, 2017 17:06 - CONCLUSION: Small bore chest tube in place with reduction in the amount of effusion. Everett Pollock MD FACR Chest X-Ray 02/04/17 0000 Signed Impressions: Service Date/Time: Saturday, February 04, 2017 04:31 - CONCLUSION: Unchanged exam with bilateral pleural effusions and bibasilar pulmonary infiltrates. Kulwant Cowart Jr., MD Chest X-Ray 02/02/17 0000 Signed Impressions: Service Date/Time: Thursday, February 02, 2017 07:55 - CONCLUSION: Slow interval improvement. Supportive apparatus good position. Everett Pollock MD FACR Liver Ultrasound 02/01/17 0000 Signed Impressions: Service Date/Time: Wednesday, February 01, 2017 16:32 - CONCLUSION: 1. Cirrhotic appearing liver with trace ascites in the pelvis. 2. Gallbladder wall thickening and mild pericholecystic fluid without gallstones. These findings are routinely seen in the setting of cirrhosis. If there is significant clinical concern regarding cholecystitis, HIDA scan may be performed. 3. Bilateral pleural effusions. Escobar Joiner MD Chest X-Ray 01/31/17 0828 Signed Impressions: Service Date/Time: Tuesday, January 31, 2017 10:37 - CONCLUSION: 1. ET tube in good position. 2. Clinically. 3. Bilateral pleural effusions with partial right. 4. Consolidation/atelectasis at the bases being worse on the right. Washington Chou MD Chest CT 01/31/17 0000 Signed Impressions: Service Date/Time: Tuesday, January 31, 2017 12:52 - CONCLUSION: 1. Moderate bilateral pleural effusions with associated bibasilar airspace consolidation. 2. Mild patchy airspace disease in the lingula and right middle lobe. 3. Diffuse soft tissue prominence of the mid to distal esophagus with esophageal stent in place consistent with history of esophageal CA. Administered contrast extends to the proximal esophagus. 4. ETT in good position. NGT just be in the GE junction. 5. Prominent coronary artery calcifications. Escobar Joiner MD Abdomen/Pelvis CT 01/31/17 0000 Signed Impressions: Service Date/Time: Tuesday, January 31, 2017 12:52 - CONCLUSION: 1. No definite CT findings to explain patient's lactic acidosis. Specifically, no evidence for bowel infarction or perforation. 2. Moderate bilateral pleural effusions with associated bilateral lower lobe airspace consolidation. 3. Diffusely prominent distal esophagus with distal esophageal stent in place. NGT courses through the stent with tip just beyond the GE junction. 4. Cirrhotic appearing liver without evidence for significant ascites or focal drainable fluid collection. Escobar Joiner MD Physical Exam GENERAL: Sedated, on the vent, not in distress SKIN: Warm and dry, no rash, edematous. No jaundice. NO embolic lesions HEAD: Atraumatic. Normocephalic. EYES: Pupils equal and round and reactive. NO petechia or hemorrhage. No scleral icterus. No injection or drainage. . ENT: Nose without bleeding or purulent drainage. Orally intubated NECK: Trachea midline. Supple, nontender. CARDIOVASCULAR: Regular rate and rhythm. Harsh systolic murmur at base RESPIRATORY/CHEST: Symmetric, respirations. Coarse BS bilaterally, with some rhonchi on L, decreased at bases. CT R with serosanguineous fluid GASTROINTESTINAL: Abdomen soft, non-tender, nondistended. . No guarding. Bowel sounds present. GENITOURINARY: Saxena catheter in place with yellow urine MUSCULOSKELETAL: Extremities without clubbing, cyanosis. Has edema of hands and feet. No mottling or clubbing. NEUROLOGICAL: Sedated PSYCHIATRIC: unable to assess LINE: NO evidence of infection Assessment & Plan Remarks IMPRESSION Shock, sepsis, lactic acidosis, leukocytosis > 22K on presentation, resolved - his lactic acidemia improved - source? lung, UA with some pyuria Respiratory failure, ?PNA, plus CHF - sputum with normal adama - S/P Rx Cardiomyopathy with severe AI, mod MR and TR Recent Rx for MSSA sepsis Recent Rx PSAE PPNA Known head and neck CA Esophageal CA, S/P stent Recent workup for pleural and pericardial effusions, no malignancy, (+) inflammation PCN allery but tolerated Cephalosporins PLAN Monitor off Abx Monitor progress Palliative medicine evaluating goals of care Weaning per CCM as tolerated Monitor for S/Sxs of new infection Carola Nassar MD Feb 08, 2017 17:56
[2017-02-08] MEDS: fentaNYL DRIP 250 ML IV PRN (18:01)
[2017-02-08 19:54] LABS: HCV RNA PCR IU/ML LESS THAN 15 IU/mL (0-14); HCV RNA PCR LOGIU/ML LESS THAN 1.18 (0-1.18)
[2017-02-08] MEDS: CLINIMIX E 4.25/25 2000 mL- >42 mls/hr IV-CENTRAL SCH ×3 (20:41)
[2017-02-08] MEDS ORDERED: INSULIN DETEMIR 100 UNITS/ML VIAL SQ SCH (21:00)
[2017-02-09] VITALS (17 sets, daily range): BP systolic 87–118; BP diastolic 50–59; PULSE 88–130; RESP 18; TEMP 97–99.3; O2SAT 96–100
[2017-02-09] MEDS: METOPROLOL TARTRATE 5 MG/5 ML VIAL IV PUSH SCH ×6 (00:37→22:46)
[2017-02-09] MEDS: CHLORHEXIDINE GLUCONATE 2 % 1 PACK (2 CLOTHS) TOP SCH (04:00)
[2017-02-09] MEDS: RESP: ALBUTEROL 2.5 MG/IPRATROPIUM 0.5 MG NEB (SCH) INH ×4 (04:16→21:59)
[2017-02-09] MEDS: ARTIFICIAL TEARS OPTH SOLN 15 ML BTL EACH EYE SCH ×2 (04:56→14:00)
--- NOTE | 2017-02-09 05:45 | RADRPT ---
EXAM DATE/TIME: 02/09/2017 03:21 [facility] COMPARISON: CHEST SINGLE AP, February 07, 2017, 17:44. INDICATIONS : Shortness of breath, possible pulmonary disease. MEDICAL HISTORY : Diabetes mellitus type II. Carcinoma, esophageal. Squamous cell carcinoma SURGICAL HISTORY : Appendectomy. Coronary artery stent. ENCOUNTER: Subsequent ACUITY: 2 months PAIN SCORE: Non-responsive. LOCATION: Bilateral chest FINDINGS: A single view of the chest demonstrates endotracheal tube in good position. Right-sided PICC line in superior vena cava. Small caliber right chest tube without pneumothorax. Bilateral mostly basilar air space disease. Cardiomegaly. CONCLUSION: 1. Bilateral mostly basilar airspace disease and small effusions. Small caliber right chest tube with out pneumothorax. Kervin Krause MD on February 09, 2017 at 5:40 Board Certified Radiologist. This report was verified electronically.
[2017-02-09 05:49] LABS: AUTOMATED NEUTROPHIL # 10.9 TH/MM3 (1.8-7.7); BASOPHIL % 0.1 % (0.0-2.0); HEMATOCRIT 32.4 % (39.0-51.0); LYMPH % 8.6 % (9.0-44.0); LYMPHOCYTE # 1.1 TH/MM3 (1.0-4.8); MEAN CELL VOLUME 92.2 FL (80.0-100.0); MEAN CORPUSCULAR HEMOGLOBIN 28.4 PG (27.0-34.0); MEAN CORPUSCULAR HGB CONC 30.8 % (32.0-36.0); MONO % 6.6 % (0.0-8.0); NEUT % 84.7 % (16.0-70.0); PLATELET COUNT 75 TH/MM3 (150-450); RED BLOOD COUNT 3.51 MIL/MM3 (4.50-5.90); WHITE BLOOD COUNT 12.9 TH/MM3 (4.0-11.0)
[2017-02-09 06:01] LABS: HEMO FLAGS AUTO DIFF
[2017-02-09 06:19] LABS: BICARBONATE 29.5 MEQ/L (21.0-32.0); INDIRECT BILIRUBIN 0.4 MG/DL (0.0-0.8); MAGNESIUM 2.4 MG/DL (1.5-2.5); POTASSIUM 4.3 MEQ/L (3.5-5.1); TOTAL BILIRUBIN ADULT 0.8 MG/DL (0.2-1.0)
[2017-02-09] MEDS ORDERED: DEXTROSE 50% IN WATER 50 ML VIAL(D50) IV PUSH PRN (08:00)
[2017-02-09] MEDS ORDERED: GLUCAGON 1 MG/ML VIAL OTHER PRN (08:00)
--- NOTE | 2017-02-09 08:03 | HHI.CCPN ---
Subjective Remarks/Hospital Course The patient is a 61-year-old male with multiple comorbidities which include esophageal adenocarcinoma status post stent placement in December, coronary artery disease with previous stent placement in the proximal circumflex, squamous cell carcinoma of the skin and anemia and a history of atrial flutter. The patient presented to the [facility] Emergency Department from a local longterm for hypoxemia and severe respiratory distress. On arrival to the emergency room, the patient was hypotensive with a systolic blood pressure in the 80s, bradycardic with heart rate in the 50s and had a temperature of 97.6. Due to severe respiratory distress, he was subsequently intubated and placed on full mechanical ventilation. In addition, Versed drip was initiated. In the emergency room, the patient was found to have wide complex tachycardia and his laboratory data showed severe hyperkalemia with a potassium level of 6.9 and lactic acidosis with a lactic acid level of 12.5. The patient went into PEA arrest in the emergency room and he received epinephrine, bicarb with successful return of spontaneous circulation. He received approximately 1.5 liters of crystalloids and was started on Levophed drip which is currently 20 mics. For hyperkalemia, the patient was given 2 ampules of bicarb, calcium gluconate and 10 units of IV insulin D50 and placed on bicarb drip. A chest x-ray post- intubation showed ET tube above the elizabeth, bilateral pleural effusions with consolidation and atelectasis at the bases right greater than left. An ABG post intubation appears venous blood gas which showed a pH of 7.13, CO2 28, pAO2 44, bicarb of 9, saturation 53% with a base excess of -18.6. This was on assist control ventilation rate of 16, tidal volume 550, PEEP of 5 and 100% FIO2. The patient is scheduled for CT scan of the abdomen and pelvis along with CT scan of the chest. He was discharged from the hospital yesterday after he was admitted on December 24. On his previous admission, the patient had an Pseudomonas pneumoniae. In addition, he had MSSA bacteremia back in November. 02/01 Patient remains intubated with versed and Fentnayl drips. Levophed down 12 mics from 20 and on Vasopressin 0.04 mics. Lactic acid is trending down 2.9 this morning from 12.5 on arrival. On Bicarb drip. Afebrile. 02/02 No events overnight. Sedated with Versed and Fentanyl drips. Levophed down 6 mics and on Vasopressin 0.04. Renal function is improving with Cr: 1.17 from 1.86. Off Bicarb drip. 02/03 Patient was in SVT last night HR 204 given Adenosine 6mg+12mg then cardioverted with 50J now in NSR HR 70's. Sedated with Versed and Fentanyl drips. Given 2units PRBC overnight Hgb 9.2 this morning. Off all pressors. For EGD today. 02/04: Remains intubated sedated. Wakes up easily follows commands. Remains off all pressors platelet count decreasing 92 today. Hemoglobin stable. EGD esophageal mass/known Ca in the mid esophagus this was friable and when touched was oozing blood, an esophageal stent this was in good position and covering most of the mass but there is overgrowth more proximal to the stent does not appear to be occluding the esophagus 02/05: Afebrile. Minimal sedation. Hemoglobin remained stable. OG tube replaced by RN this AM. Failed CPAP trials after 2 minutes. 02/06: Resting comfortably in no acute distress. We'll attempt C Pap trial again today. Tube feeds not initiated. Resting comfortable in bed 02/07: Afebrile. Resting in bed. Failed PSV trial yesterday. Currently resting in bed in no distress. Subjective 02/08: Afebrile. Currently on PSV trial. Resting in bed in no acute distress. TPN initiated. Insulin drip initiated 02/09 Patient is sedated with Fentanyl, Versed and intubated. On Insulin drip 7u/ hr, TPN@75ml/hr. Afebrile. Objective Vital Signs Date Time Temp Pulse Resp B/P (MAP) Pulse Ox O2 Delivery O2 Flow Rate FiO2 02/09/17 06:00 118 02/09/17 04:17 99 35 02/09/17 04:00 98.2 18 118/59 (78) Intake and Output 02/09/17 02/09/17 02/10/17 08:00 16:00 00:00 Intake Total 1186 ml Output Total 750 ml Balance 436 ml Result Diagram: 02/09/17 0410 02/09/17 041 Other Results Laboratory Tests Test 02/09/17 04:10 White Blood Count 12.9 TH/MM3 Red Blood Count 3.51 MIL/MM3 Hemoglobin 10.0 GM/DL Hematocrit 32.4 % Mean Corpuscular Volume 92.2 FL Mean Corpuscular Hemoglobin 28.4 PG Mean Corpuscular Hemoglobin Concent 30.8 % Red Cell Distribution Width 17.0 % Platelet Count 75 TH/MM3 Mean Platelet Volume 9.7 FL Neutrophils (%) (Auto) 84.7 % Lymphocytes (%) (Auto) 8.6 % Monocytes (%) (Auto) 6.6 % Eosinophils (%) (Auto) 0.0 % Basophils (%) (Auto) 0.1 % Neutrophils # (Auto) 10.9 TH/MM3 Lymphocytes # (Auto) 1.1 TH/MM3 Monocytes # (Auto) 0.9 TH/MM3 Eosinophils # (Auto) 0.0 TH/MM3 Basophils # (Auto) 0.0 TH/MM3 CBC Comment AUTO DIFF Blood Urea Nitrogen 60 MG/DL Creatinine 0.93 MG/DL Random Glucose 159 MG/DL Total Protein 5.3 GM/DL Albumin 2.1 GM/DL Calcium Level 7.9 MG/DL Phosphorus Level 2.6 MG/DL Magnesium Level 2.4 MG/DL Alkaline Phosphatase 75 U/L Aspartate Amino Transf (AST/SGOT) 27 U/L Alanine Aminotransferase (ALT/SGPT) 63 U/L Total Bilirubin 0.8 MG/DL Direct Bilirubin 0.4 MG/DL Sodium Level 143 MEQ/L Potassium Level 4.3 MEQ/L Chloride Level 109 MEQ/L Carbon Dioxide Level 29.5 MEQ/L Anion Gap 5 MEQ/L Estimat Glomerular Filtration Rate 83 ML/MIN Indirect Bilirubin 0.4 MG/DL Imaging Last Impressions Chest X-Ray 02/09/17 0600 Signed Impressions: Service Date/Time: Thursday, February 09, 2017 03:21 - CONCLUSION: 1. Bilateral mostly basilar airspace disease and small effusions. Small caliber right chest tube without pneumothorax. Kervin Krause MD Abdomen X-Ray 02/06/17 0000 Signed Impressions: Service Date/Time: Monday, February 06, 2017 14:37 - CONCLUSION: Benign abdomen. Negative for nasogastric tube Raudel Greenberg MD Liver Ultrasound 02/01/17 0000 Signed Impressions: Service Date/Time: Wednesday, February 01, 2017 16:32 - CONCLUSION: 1. Cirrhotic appearing liver with trace ascites in the pelvis. 2. Gallbladder wall thickening and mild pericholecystic fluid without gallstones. These findings are routinely seen in the setting of cirrhosis. If there is significant clinical concern regarding cholecystitis, HIDA scan may be performed. 3. Bilateral pleural effusions. Escobar Joiner MD Chest CT 01/31/17 0000 Signed Impressions: Service Date/Time: Tuesday, January 31, 2017 12:52 - CONCLUSION: 1. Moderate bilateral pleural effusions with associated bibasilar airspace consolidation. 2. Mild patchy airspace disease in the lingula and right middle lobe. 3. Diffuse soft tissue prominence of the mid to distal esophagus with esophageal stent in place consistent with history of esophageal CA. Administered contrast extends to the proximal esophagus. 4. ETT in good position. NGT just be in the GE junction. 5. Prominent coronary artery calcifications. Escobar Joiner MD Abdomen/Pelvis CT 01/31/17 0000 Signed Impressions: Service Date/Time: Tuesday, January 31, 2017 12:52 - CONCLUSION: 1. No definite CT findings to explain patient's lactic acidosis. Specifically, no evidence for bowel infarction or perforation. 2. Moderate bilateral pleural effusions with associated bilateral lower lobe airspace consolidation. 3. Diffusely prominent distal esophagus with distal esophageal stent in place. NGT courses through the stent with tip just beyond the GE junction. 4. Cirrhotic appearing liver without evidence for significant ascites or focal drainable fluid collection. Escobar Joiner MD Objective Remarks GENERAL: 61-year-old male, critically ill currently orotracheally intubated SKIN: Warm and dry. Positive sacral decubitus ulcer stage II HEAD: Normocephalic. EYES: No scleral icterus. No injection or drainage. NECK: Supple, trachea midline. No JVD or lymphadenopathy. CARDIOVASCULAR: Regular rate and rhythm without murmurs, gallops, or rubs. RESPIRATORY: Breath sounds equal bilaterally. Coarse rhonchi appreciated bilaterally. Right chest tube is clean dry and intact. -450 SS GASTROINTESTINAL: Abdomen soft, non-tender, nondistended. MUSCULOSKELETAL: 2+ bilateral lower extremity edema Neuro: Currently intubated and sedated. Positive gag. Positive corneal reflex. Date of Insertion: Feb 07, 2017 Line: PICC Side: Right Location: Antecubital A/P Assessment and Plan Plan Neuro/Psych: On Fentanyl drip at 200 grams an hour and midazolam drip at 5 mg an hour for sedation. Goal of RA SS -2 Daily sedation vacation. Pulm: Acute hypoxemic respiratory failure Right pleural effusion Continue with vent support and maintain saturations>92%. PRVC 18/500/1/5/35 Ventilator bundle, check ABG Albuterol/ipratropium aerosols every 4 hours with albuterol every 2 hours. Dyspnea hydrocortisone 50mg daily through 02/12 SBT daily as michael. CT chest: Moderate bilateral pleural effusions with associated bibasilar airspace consolidation. Mild patchy airspace disease in the lingula and right middle lobe. Esophageal CA. Right sided CT in place-monitor CT drainage( Drained 1350ml in 24 hrs, transudative fluid) CV: Severe aortic regurgitation History of coronary disease status post stent circumflex Coronary artery disease Dyslipidemia Hypertension Monitor HR and BP keep MAP>65mmHg Patient went into SVT 02/02 night given Adenosine and was cardioverted with 50J now in NSR HR 70's. Okay to with ASA 81 mg daily and clopidogrel 75 mg daily- Discussed with Dr. Tejeda however unable to place tube through esophageal stent. On Aspirin 300 mg per rectum daily. Echo from 01/07 showed EF 60% to 65%. Echo 02/01 revealed EF 40-45%. Bilateral atrial enlargement. LVH. On Metoprolol 5 mg IV every [address] surgery for AVR. No plans for intervention at the present time Renal/: Monitor renal function, intakes and outputs and avoid nephrotoxins. 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 Gallbladder wall thickening and mild pericholecystic fluid without gallstone hepatitis profile : Hep C reactive ab. Genotype pending on pantoprazole 40 mg IV Q12 for GI prophylaxis. CT abdomen/pelvis: no bowel infarction or perforation. bilateral lower lobe airspace consolidation. Diffusely prominent distal esophagus with distal esophageal stent in place. EGD By Dr. Tejeda 02/03 esophageal Ca in the mid esophagus friable oozing blood, esophageal stent in good position and covering most of the mass but there is overgrowth more proximal to the stent does not appear to be occluding the esophagus TPN started 02/07 with PICC line placement ID; Continue with abx (cefepime) ID is following Monitor for signs of infection which include fever and WBCs. Follow up on blood, sputum, urine cultures: NGTD Strep pneumoniae and Legionella urinary antigen negative. 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 S/P mohs surgery September 2015 Normocytic anemia Thrombocytopenia Status post parotidectomy and radical neck dissection in September 2016. Monitor CBC, s/p transfusion 2units PRBC 02/02 Oncology consulted ( patient known to him) patient is on chemo and XRT for his esophageal ca. not a candidate due to underlying critical illness Check Hep PLT ab Endo: Diabetes mellitus SSI with Accu-Chek q. 4 hours for glycemic control. On Levemir 40 units daily metformin 1000 mg twice a day at home. On Levemir 30 units SQ BID and insulin drip algorithm #2, transition insulin drip to SSI with accuchecks GI prophylaxis with pantoprazole 40 mg IV Q12 DVT prophylaxis with SCDs. No chemical prophylaxis due to anemia requiring blood transfusion and thrombocytopenia Lines: Right upper extremity PICC line 02/07 Palliative care is following of care. DNR status CCT 30 mins Dixie Navarrete MD Feb 09, 2017 08:03
[2017-02-09 08:31] LABS: OVALOCYTES 1+ (NORMAL); PLATELET ESTIMATE SMEAR LOW (NORMAL)
[2017-02-09 08:32] LABS: PLATELET MORPHOLOGY NORMAL (NORMAL); SCAN/DIFF AUTO DIFF CONFIRMED
[2017-02-09] MEDS: PANTOPRAZOLE SODIUM 40 MG VIAL IV PUSH SCH ×2 (08:34→22:45)
[2017-02-09] MEDS: HYDROCORTISONE SOD SUCCINATE 100 MG VIAL IV PUSH SCH (08:34)
[2017-02-09] MEDS: SODIUM CHLORIDE 0.9% FLUSH 10 ML FLUSH IV FLUSH SCH (08:35)
[2017-02-09] MEDS: DOCUSATE SODIUM 50 MG/SENNA 8.6 MG TAB PO SCH ×2 (08:36→22:47)
[2017-02-09] MEDS: ASPIRIN 300 MG SUPP RECTAL SCH (08:36)
[2017-02-09] MEDS: INSULIN DETEMIR 100 UNITS/ML VIAL SQ SCH ×2 (08:36→22:47)
[2017-02-09] MEDS: CLOPIDOGREL 75 MG TAB PO SCH (08:36)
[2017-02-09] MEDS: COLLAGENASE OINT 30 GM TUBE TOPICAL SCH (08:37)
[2017-02-09] MEDS: INSULIN NovoLIN REGULAR SUPPLEMENTAL SCALE SQ SCH ×4 (09:00→21:00)
[2017-02-09] MEDS: fentaNYL DRIP 250 ML IV PRN (11:35)
--- NOTE | 2017-02-09 12:28 | HHI.HCPN ---
Reason for visit a. To assist with evaluation and management of symptoms including: Shortness of breath, Debility. b. To assist medical decision maker(s) with: better understanding of current medical conditions; weighing benefits/burdens of medical treatment options; making medical treatment decisions. . 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 He was initially admitted to [facility] 11/29/16 with abdominal pain, shortly after receiving a diagnosis of lower esophageal/upper stomach cancer at the GE junction, likely metastatic from left parotid cancer. During that admission he required intubation and underwent EGD by Dr. Tejeda showing an irregular esophageal mass "extending from 30 cm from the incisors to 40 cm from the incisors involving about one third of the esophageal wall, very irregular and friable with lots of oozing blood" as it is touched and almost circumferential at the lower and with a fully covered esophageal stent placed at this site. During removal of food and debris in the esophagus there was quite a bit of bleeding noted with any touch of this esophageal mass. During this admission he underwent a second EGD showing a friable mid esophageal mass that oozed blood when touched. Per Dr. Tejeda's note there was little in the way of endoscopic therapy that could be performed at that point. He has received 5 units of PRBCs at this admission. He was also found to have severe aortic regurgitation, not a candidate for corrective procedure or surgery. He remains intubated and sedated at this time. Per my discussion with Dr. Yoder 02/06, he felt there was minimal if any chance of extubating the patient without initiating a substantial esophageal bleed from the friable mass. This was discussed with the family and DNR was initiated as options are extremely limited. Patient had declined any tracheostomy throughout his admissions at [facility] and family is willing to honor his wishes. He cannot stay indefinitely intubated as the friction of the ET tube is likely to cause further bleeding, extubating would likely cause extensive bleeding and he cannot undergo chemotherapy or radiation until extubated and stable. At this point per my discussions with Dr. Yoder and Dr. Navarrete who is following the patient today, the only option is compassionate withdrawal through hospice. This was also discussed with Perla Duran who interfaced with Dr. Bell who also agrees that hospice is the patient's only treatment option at this time. Clinical studies today show WBC 12.9, hemoglobin 10.0, hematocrit 32.4, platelets 75, sodium 143, potassium 4.3, BUN 60, creatinine 0.93. Chest x-ray shows bilateral mostly basilar airspace disease and small effusions with a right chest tube, small caliber without pneumothorax. PRVC/AC vent settings, 18 /550/35/5. Chest tube output 1350 mL over the prior 24 hours. . Family/friend interactions Spoke with daughter Ben and girlfriend, Luly and arranged meeting for 02/10 to discuss options for treatment/hospice/withdrawal. . Advance Directives Living Will: Copy in medical record Health Care Surrogate: Copy in medical record Durable Power of Contemporary Or Modern Dancer: Never completed Advance Directive Specifics Date completed: HCS completed 12/25/16 Living Will completed 01/07/17. . Health Care Surrogate(s): This information of healthcare surrogate and filed. Patient designated his daughter Ben La AND girlfriend Luly Bautista as HCS. . Documented care wishes: Patient electing that life/prolonging procedures be withheld or withdrawn in the setting of persistent vegetative state. Patient electing no tracheostomy. . Objective Vital Signs Date Time Temp Pulse Resp B/P (MAP) Pulse Ox O2 Delivery O2 Flow Rate FiO2 02/09/17 10:00 125 02/09/17 09:45 35 02/09/17 08:13 98 35 02/09/17 08:00 128 02/09/17 08:00 98.4 128 18 100/52 (68) 99 02/09/17 08:00 35 02/09/17 06:00 118 02/09/17 04:17 99 35 02/09/17 04:00 35 02/09/17 04:00 98.2 88 18 118/59 (78) 99 02/09/17 04:00 88 02/09/17 02:00 88 02/09/17 01:49 99 35 02/09/17 00:00 94 02/09/17 00:00 35 02/09/17 00:00 99.3 94 18 111/55 (73) 99 02/08/17 22:00 95 02/08/17 20:09 97 35 02/08/17 20:00 35 02/08/17 20:00 99.4 118 19 156/68 (97) 96 02/08/17 20:00 118 02/08/17 18:12 109 02/08/17 16:01 98.3 97 11 121/56 (77) 94 02/08/17 16:00 35 02/08/17 16:00 97 02/08/17 15:00 117 19 160/70 (100) 95 02/08/17 14:42 94 35 02/08/17 14:00 118 28 155/67 (96) 93 02/08/17 14:00 118 02/08/17 13:00 112 14 141/65 (90) 95 02/08/17 12:01 98.1 110 9 144/63 (90) 95 02/08/17 12:00 110 02/08/17 12:00 35 Intake & Output 02/09/17 02/09/17 07:00 19:00 Intake Total 1439 ml 41 ml Output Total 750 ml Balance 689 ml 41 ml IV Total 727 ml 41 ml TPN/PPN 712 ml Output Urine Total 400 ml Chest Tube Drainage Total 350 ml Physical Exam CONSTITUTIONAL/GENERAL: This is an ill looking male, who appears older than stated age in no acute distress. Intubated on mechanical ventilation, sedated, arousable briefly to stimuli. TUBES/LINES/DRAINS: ETT, NGT, right hand, right forearm PIV, Right femoral central line; Right femoral A line, right basilic PICC, right pigtail chest tube with moderate amount of serosanguineous output, (1350mL) overnight. SKIN: No jaundice, rashes, or lesions. Ecchymoses on upper extremities. Skin tear to left lower extremity. Skin temperature appropriate. Not diaphoretic. NECK: Trachea midline. Supple, no JVD. CARDIOVASCULAR: Regular rhythm, tachycardic rate 120-140, 2/6 high-pitched systolic murmur. Pulses symmetric, decreased. RESPIRATORY/CHEST: Symmetric, unlabored respirations. Rhonchi throughout all lung ray. Right pigtail chest tube draining serous drainage. GASTROINTESTINAL: Abdomen soft, large, round. Hypoactive bowel sounds. GENITOURINARY: Without palpable bladder distension. Saxena catheter in place. MUSCULOSKELETAL: Extremities without clubbing, cyanosis. 1+ edema to all 4 extremities. NEUROLOGICAL: Sedated. Not following commands. PSYCHIATRIC: Briefly arousable to stimuli, not agitated. . Diagnostic Tests Laboratory Laboratory Tests Test 02/07/17 04:06 02/07/17 23:16 02/08/17 04:17 02/09/17 04:10 White Blood Count 7.3 TH/MM3 (4.0-11.0) 7.4 TH/MM3 (4.0-11.0) 12.9 TH/MM3 (4.0-11.0) Red Blood Count 3.47 MIL/MM3 (4.50-5.90) 3.29 MIL/MM3 (4.50-5.90) 3.51 MIL/MM3 (4.50-5.90) Hemoglobin 10.2 GM/DL (13.0-17.0) 9.6 GM/DL (13.0-17.0) 10.0 GM/DL (13.0-17.0) Hematocrit 31.6 % (39.0-51.0) 30.6 % (39.0-51.0) 32.4 % (39.0-51.0) Mean Corpuscular Volume 91.0 FL (80.0-100.0) 93.1 FL (80.0-100.0) 92.2 FL (80.0-100.0) Mean Corpuscular Hemoglobin 29.3 PG (27.0-34.0) 29.2 PG (27.0-34.0) 28.4 PG (27.0-34.0) Mean Corpuscular Hemoglobin Concent 32.2 % (32.0-36.0) 31.3 % (32.0-36.0) 30.8 % (32.0-36.0) Red Cell Distribution Width 17.5 % (11.6-17.2) 17.8 % (11.6-17.2) 17.0 % (11.6-17.2) Platelet Count 86 TH/MM3 (150-450) 76 TH/MM3 (150-450) 75 TH/MM3 (150-450) Mean Platelet Volume 9.4 FL (7.0-11.0) 10.0 FL (7.0-11.0) 9.7 FL (7.0-11.0) Blood Urea Nitrogen 55 MG/DL (7-18) 54 MG/DL (7-18) 60 MG/DL (7-18) Creatinine 0.90 MG/DL (0.60-1.30) 0.89 MG/DL (0.60-1.30) 0.93 MG/DL (0.60-1.30) Random Glucose 261 MG/DL (74-106) 440 MG/DL (74-106) 159 MG/DL (74-106) Total Protein 5.5 GM/DL (6.4-8.2) 5.2 GM/DL (6.4-8.2) 5.3 GM/DL (6.4-8.2) Albumin 2.4 GM/DL (3.4-5.0) 2.1 GM/DL (3.4-5.0) 2.1 GM/DL (3.4-5.0) Calcium Level 8.2 MG/DL (8.5-10.1) 7.9 MG/DL (8.5-10.1) 7.9 MG/DL (8.5-10.1) Phosphorus Level 2.2 MG/DL (2.5-4.9) 2.3 MG/DL (2.5-4.9) 2.6 MG/DL (2.5-4.9) Magnesium Level 2.3 MG/DL (1.5-2.5) 2.3 MG/DL (1.5-2.5) 2.4 MG/DL (1.5-2.5) Alkaline Phosphatase 70 U/L (45-117) 65 U/L (45-117) 75 U/L (45-117) Aspartate Amino Transf (AST/SGOT) 19 U/L (15-37) 22 U/L (15-37) 27 U/L (15-37) Alanine Aminotransferase (ALT/SGPT) 118 U/L (12-78) 85 U/L (12-78) 63 U/L (12-78) Total Bilirubin 0.8 MG/DL (0.2-1.0) 0.6 MG/DL (0.2-1.0) 0.8 MG/DL (0.2-1.0) Sodium Level 140 MEQ/L (136-145) 141 MEQ/L (136-145) 143 MEQ/L (136-145) Potassium Level 4.3 MEQ/L (3.5-5.1) 4.3 MEQ/L (3.5-5.1) 4.3 MEQ/L (3.5-5.1) Chloride Level 104 MEQ/L (98-107) 106 MEQ/L (98-107) 109 MEQ/L (98-107) Carbon Dioxide Level 28.6 MEQ/L (21.0-32.0) 30.0 MEQ/L (21.0-32.0) 29.5 MEQ/L (21.0-32.0) Anion Gap 7 MEQ/L (5-15) 5 MEQ/L (5-15) 5 MEQ/L (5-15) Estimat Glomerular Filtration Rate 86 ML/MIN (>89) 87 ML/MIN (>89) 83 ML/MIN (>89) Triglycerides Level 126 MG/DL (42-150) Prothrombin Time 16.4 SEC (9.8-11.6) Prothromb Time International Ratio 1.5 RATIO Neutrophils (%) (Auto) 84.7 % (16.0-70.0) Lymphocytes (%) (Auto) 8.6 % (9.0-44.0) Monocytes (%) (Auto) 6.6 % (0.0-8.0) Eosinophils (%) (Auto) 0.0 % (0.0-4.0) Basophils (%) (Auto) 0.1 % (0.0-2.0) Neutrophils # (Auto) 10.9 TH/MM3 (1.8-7.7) Lymphocytes # (Auto) 1.1 TH/MM3 (1.0-4.8) Monocytes # (Auto) 0.9 TH/MM3 (0-0.9) Eosinophils # (Auto) 0.0 TH/MM3 (0-0.4) Basophils # (Auto) 0.0 TH/MM3 (0-0.2) CBC Comment AUTO DIFF Differential Comment AUTO DIFF CONFIRMED Platelet Estimate LOW (NORMAL) Platelet Morphology Comment NORMAL (NORMAL) Ovalocytes 1+ (NORMAL) Direct Bilirubin 0.4 MG/DL (0.0-0.2) Indirect Bilirubin 0.4 MG/DL (0.0-0.8) Result Diagram: 02/09/1740902/09/17 041 Imaging Last Impressions Chest X-Ray 02/09/17 0600 Signed Impressions: Service Date/Time: Thursday, February 09, 2017 03:21 - CONCLUSION: 1. Bilateral mostly basilar airspace disease and small effusions. Small caliber right chest tube without pneumothorax. Kervin Krause MD Abdomen X-Ray 02/06/17 0000 Signed Impressions: Service Date/Time: Monday, February 06, 2017 14:37 - CONCLUSION: Benign abdomen. Negative for nasogastric tube Raudel Greenberg MD Liver Ultrasound 02/01/17 0000 Signed Impressions: Service Date/Time: Wednesday, February 01, 2017 16:32 - CONCLUSION: 1. Cirrhotic appearing liver with trace ascites in the pelvis. 2. Gallbladder wall thickening and mild pericholecystic fluid without gallstones. These findings are routinely seen in the setting of cirrhosis. If there is significant clinical concern regarding cholecystitis, HIDA scan may be performed. 3. Bilateral pleural effusions. Escobar Joiner MD Chest CT 01/31/17 0000 Signed Impressions: Service Date/Time: Tuesday, January 31, 2017 12:52 - CONCLUSION: 1. Moderate bilateral pleural effusions with associated bibasilar airspace consolidation. 2. Mild patchy airspace disease in the lingula and right middle lobe. 3. Diffuse soft tissue prominence of the mid to distal esophagus with esophageal stent in place consistent with history of esophageal CA. Administered contrast extends to the proximal esophagus. 4. ETT in good position. NGT just be in the GE junction. 5. Prominent coronary artery calcifications. Escobar Joiner MD Abdomen/Pelvis CT 01/31/17 0000 Signed Impressions: Service Date/Time: Tuesday, January 31, 2017 12:52 - CONCLUSION: 1. No definite CT findings to explain patient's lactic acidosis. Specifically, no evidence for bowel infarction or perforation. 2. Moderate bilateral pleural effusions with associated bilateral lower lobe airspace consolidation. 3. Diffusely prominent distal esophagus with distal esophageal stent in place. NGT courses through the stent with tip just beyond the GE junction. 4. Cirrhotic appearing liver without evidence for significant ascites or focal drainable fluid collection. Escobar Joiner MD Procedures 02/04/17 -right pigtail chest tube 02/03/17 -EGD 02/02/17 Intubated 02/02/17 Right femoral central line placement 02/02/17 Right femoral Arterial line . Assessment and Plan Disease Oriented Problem List: (1) Septic shock (2) PEA (Pulseless electrical activity) (3) Respiratory failure (4) Esophageal carcinoma (5) Acute kidney injury (6) Edema (7) Physical deconditioning (8) Anemia Symptom Scale: (1) Shortness of breath 0-10 Scale: Unable to quantify Comment: Intubated on mechanical ventilation. (2) Pain 0-10 Scale: Unable to quantify Comment: Multifactorial. Currently on fentanyl drip. (3) Debility 0-10 Scale: Unable to quantify Comment: Progressive. Pertinent Non-Medical Issues Psychosocial: Mr La is a 61-year-old male who was born in [place], [place]. Patient moved to [place] at the age of 15. He never attended high school after he moved to [place] nor obtained his GED. 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 Patient worked a lot with chemicals in [employer]. No service. Patient is , has 1 daughter. Patient residing with girlfriend Luly Bautista for the past 40 years. Spiritual: The jainism affiliation. Legal: Advance directives completed. Copy in file. Ethical issues impacting care: Patient unable to participate in medical decision making given clinical condition, intubated/sedated. . Important Contacts Daughter -Ben La Significant other Luly Bautista or . . 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 Patient presented to the ED via EMS 02/02/17 from a long term for shortness of breath and weakness. Patient sustained PEA arrest, underwent CPR and ACLS drugs with ROS, subsequently intubated and placed on mechanical ventilation. Patient was recently discharged from the [facility] on 01/30/17 after hospitalization x 2 months. During hospitalization, his clinical course was complicated by NSTEMI, patient underwent PCI with bare metal stents on 11/30/16. Clinical course further complicated by persistent fever, MSSA bacteremia, worsening sepsis, A. fib with RVR and persistent respiratory failure, intubation and mechanical ventilation x3 times, pericardial effusion requiring pericardiocentesis and pleural effusion with chest tube placement. Patient's overall prognosis is poor given multiple chronic ongoing comorbidities, recent prolonged hospitalization x 2 months with multiple complications, malignancy, malnutrition, most recent PEA arrest and profound physical deconditioning. Patient remains at very high risk for further complications, continued decline and . . Code Status: Full Code Plan * CODE STATUS: DNR per my discussion with both healthcare surrogates. * CAYLA CARE SURROGATE: Patient unable to participate in medical decision making, given clinical condition, intubated/sedated. Designation of healthcare surrogate completed during prior hospitalization. Patient designated his daughter Ben La AND significant other Luly Bautista as healthcare surrogate decision maker. * GOALS OF CARE: Goals of care has now transitioned to comfort. Family wishes to take the weekend absorbs this new information and determine further course. Plan for family meeting 02/10 to discuss possible compassionate withdrawal at hospice care center. SYMPTOMS: * Shortness of breath - multifactorial. Currently intubated on mechanical ventilation, failed weaning trials. * Pain - secondary to ET tube, lines, bedrest, restraints, recent prolonged hospitalization. Currently on fentanyl and versed drips for pain control and sedation. * Debility - secondary to chronic comorbidities, acute events, present prolonged hospitalization. Likely to continue to worsen. * Case discussed with bedside RN Damon. * Spiritual services offered and accepted. Referral made. * Ongoing emotional support and active listening provided to patient's significant other Luly and daughter Ben. They are cooperating well together for decision-making. * Palliative care contact information has been provided to patient's family. Family receptive to palliative care follow-ups. * Palliative care will continue to follow-up for further clarifications goals of care patient's clinical condition continues to evolve. . Attestation To help prompt me to consider important information that might be impacting today's encounter and assessment, information from prior notes written by myself or my colleagues may have been "brought forward" into today's note. My signature on this note, however, is an attestation that I personally performed the exam, history, and/or decision-making noted today, and, unless otherwise indicated, the interactions with patient, family, and staff as well as the review of records all occurred today. I also attest that the listed assessment and stated plan reflect my best clinical judgment today based on the combination of historical information, prior notes, and today's exam/ interactions. When time spent is documented, it refers only to time spent today by the signer, or if indicated, combined time spent today by collaborating physician/nurse practitioner. Betty Galindo Feb 09, 2017 12:22 pm
[2017-02-09] MEDS ORDERED: SODIUM CHLORID 0.9% 500 ML INJ 500 ML IV ONE (14:00)
[2017-02-09] MEDS: MIDAZOLAM 100 MG/100 ML INJ 100 ML IV PRN (16:10)
[2017-02-09] MEDS ORDERED: SODIUM CHLOR 0.9% 1000 ML INJ 1,000 ML IV SCH (18:09)
--- NOTE | 2017-02-09 22:21 | PD.ONC.PN ---
Subjective Subjective Remarks acutely ill patient/complex situation. overall poor prognosis has large friable esophageal mass with high risk of bleeding untreated gastro-esophageal cancer is progressing in the setting of multiple co- morbidities palliative care is recommended. Hospice is appropriate in this situation Objective Data Date Time Temp Pulse Resp B/P (MAP) Pulse Ox O2 Delivery O2 Flow Rate FiO2 02/09/17 20:10 99 35 02/09/17 18:00 129 02/09/17 16:12 99 35 02/09/17 16:00 98.4 125 18 111/57 (75) 100 02/09/17 16:00 35 02/09/17 16:00 129 02/09/17 14:00 130 02/09/17 12:00 99.0 130 18 87/50 (62) 100 02/09/17 12:00 130 02/09/17 12:00 35 02/09/17 10:00 125 02/09/17 09:45 35 02/09/17 08:13 98 35 02/09/17 08:00 128 02/09/17 08:00 98.4 128 18 100/52 (68) 99 02/09/17 08:00 35 02/09/17 06:00 118 02/09/17 04:17 99 35 02/09/17 04:00 35 02/09/17 04:00 98.2 88 18 118/59 (78) 99 02/09/17 04:00 88 02/09/17 02:00 88 02/09/17 01:49 99 35 02/09/17 00:00 94 02/09/17 00:00 35 02/09/17 00:00 99.3 94 18 111/55 (73) 99 02/09/17 02/09/17 02/09/17 07:00 15:00 23:00 Intake Total 1186 ml 791 ml 600 ml Output Total 750 ml 750 ml Balance 436 ml 791 ml -150 ml Result Diagram: 02/09/1740902/09/17409 Laboratory Results Laboratory Tests Test 02/09/17 04:10 02/09/17 16:51 White Blood Count 12.9 TH/MM3 Red Blood Count 3.51 MIL/MM3 Hemoglobin 10.0 GM/DL Hematocrit 32.4 % Mean Corpuscular Volume 92.2 FL Mean Corpuscular Hemoglobin 28.4 PG Mean Corpuscular Hemoglobin Concent 30.8 % Red Cell Distribution Width 17.0 % Platelet Count 75 TH/MM3 Mean Platelet Volume 9.7 FL Neutrophils (%) (Auto) 84.7 % Lymphocytes (%) (Auto) 8.6 % Monocytes (%) (Auto) 6.6 % Eosinophils (%) (Auto) 0.0 % Basophils (%) (Auto) 0.1 % Neutrophils # (Auto) 10.9 TH/MM3 Lymphocytes # (Auto) 1.1 TH/MM3 Monocytes # (Auto) 0.9 TH/MM3 Eosinophils # (Auto) 0.0 TH/MM3 Basophils # (Auto) 0.0 TH/MM3 CBC Comment AUTO DIFF Differential Comment AUTO DIFF CONFIRMED Platelet Estimate LOW Platelet Morphology Comment NORMAL Ovalocytes 1+ Blood Urea Nitrogen 60 MG/DL Creatinine 0.93 MG/DL Random Glucose 159 MG/DL Total Protein 5.3 GM/DL Albumin 2.1 GM/DL Calcium Level 7.9 MG/DL Phosphorus Level 2.6 MG/DL Magnesium Level 2.4 MG/DL Alkaline Phosphatase 75 U/L Aspartate Amino Transf (AST/SGOT) 27 U/L Alanine Aminotransferase (ALT/SGPT) 63 U/L Total Bilirubin 0.8 MG/DL Direct Bilirubin 0.4 MG/DL Sodium Level 143 MEQ/L Potassium Level 4.3 MEQ/L Chloride Level 109 MEQ/L Carbon Dioxide Level 29.5 MEQ/L Anion Gap 5 MEQ/L Estimat Glomerular Filtration Rate 83 ML/MIN Indirect Bilirubin 0.4 MG/DL Imaging Studies Last 24 hours Impressions Chest X-Ray 02/09/17 0600 Signed Impressions: Service Date/Time: Thursday, February 09, 2017 03:21 - CONCLUSION: 1. Bilateral mostly basilar airspace disease and small effusions. Small caliber right chest tube without pneumothorax. Kervin Krause MD Administered Medications Medications (Trade) Dose Ordered Sig/Geovanny Route PRN Reason Start Time Stop Time Status Last Admin Dose Admin Miscellaneous Information 1 [id number] XX 01/31/17 10:00 01/31/17 10:00 Chlorhexidine Gluconate (Chlorhexidine 2% Cloth) Taper DAILY@04 TOP 02/01/17 04:00 01/28/18 03:59 02/09/17 04:00 Senna/Docusate Sodium (Rere-Colace) 1 tab BID PO 01/31/17 21:00 02/08/17 08:52 Clopidogrel Bisulfate (Plavix) 75 mg DAILY PO 01/31/17 11:00 02/07/17 09:30 Fentanyl Citrate 250 ml @ 5 mls/hr TITRATE PRN IV SEDATION 01/31/17 12:45 02/09/17 11:35 Midazolam HCl 100 ml @ 2 mls/hr TITRATE PRN IV SEDATION 01/31/17 16:00 02/09/17 16:10 Propofol 100 ml @ 3 mls/hr TITRATE PRN IV SEDATION 01/31/17 17:45 01/31/17 17:40 Pantoprazole Sodium (Protonix Inj) 40 mg Q12HR IV PUSH 02/02/17 21:00 02/09/17 08:34 Collagenase (Santyl Oint) 1 applic DAILY TOPICAL 02/03/17 09:00 02/09/17 08:37 Aspirin (Ecotrin Ec) 81 mg DAILY PO 02/04/17 09:00 Future hold 02/07/17 09:30 Albuterol Sulfate (Albuterol Neb) 2.5 mg Q2HR NEB PRN INH SOB/WHEEZING 02/05/17 17:15 02/05/17 19:29 Multivitamins 10 ml/Folic Acid 1 mg/Amino Acids/ Electrolytes/ Dextrose 2,010.2 ml @ 75 mls/hr Q24H IV-CENTRAL 02/07/17 20:00 02/08/17 20:41 Sodium Chloride (NS Flush) See Protocol DAILY IV FLUSH 02/08/17 09:00 02/09/17 08:35 Heparin Sodium (Porcine) (Heparin Central Flush) See Protocol DAILY IV FLUSH 02/08/17 09:00 02/09/17 08:35 Hydrocortisone Sodium Succinate (SoluCORTEF INJ) 50 mg DAILY IV PUSH 02/09/17 09:00 02/12/17 06:00 02/09/17 08:34 Aspirin (Aspirin Supp) 300 mg DAILY RECTAL 02/08/17 10:00 02/09/17 08:36 Metoprolol Tartrate (Lopressor Inj) 5 mg Q4HR IV PUSH 02/08/17 12:00 02/09/17 16:09 Insulin Detemir (Levemir Inj) 30 units Q12HR SQ 02/08/17 21:00 02/09/17 08:36 Insulin Human Regular (NovoLIN R SUPPLEMENTAL SCALE) 1 Q4H SQ 02/09/17 09:00 02/09/17 16:10 Objective Remarks GENERAL: acutely ill/intubated SKIN: Warm and dry. CARDIOVASCULAR: Regular rate and rhythm without murmurs. RESPIRATORY: coarse b/l breath sounds . GASTROINTESTINAL: Abdomen soft, non-tender, nondistended. EXTREMITIES: No cyanosis, edematous . Assessment/Plan Problem List: (1) Esophageal adenocarcinoma ICD Codes: C15.9 - Malignant neoplasm of esophagus, unspecified Status: Acute Plan: --cannot initiate treatment until patient's acute issues resolve, cancer will likely progress if we are not able to initiate treatment soon. --has been unable to follow up in the oncology clinic. --has not been initiated on chemotherapy or radiation treatments for his gastroesophageal cancer at this time. (2) Normocytic anemia ICD Codes: D64.9 - Anemia, unspecified Status: Acute Plan: --try to keep his hemoglobin greater than 8 in the setting of coronary artery disease. (3) Sepsis ICD Codes: A41.9 - Sepsis, unspecified organism Plan: --treatment per primary team/intensivists --d/t HCAP pneumonia --Sepsis and lactic acidosis Assessment 61y/o male with a history of head and neck malignancy as well as gastroesophageal cancer who was admitted to the hospital with respiratory failure and septic shock. h/o Head and neck cancer. Gastroesophageal adenocarcinoma Esophageal stricture with stent placement Coronary artery disease with previous stent to the proximal Circumflex. History of pleural and pericardial effusion. Anemia History of A. flutter. Plan 1. monitor CBC 2. supportive care Brant Bell MD Feb 09, 2017 22:21
[2017-02-09] MEDS: CLINIMIX E 4.25/25 2000 mL- >42 mls/hr IV-CENTRAL SCH ×3 (22:46)
[2017-02-09 23:51] LABS: HEPATITIS C RNA GENOTYPE NOT DETECTED (NOT DETECTD)
[2017-02-10] VITALS (13 sets, daily range): BP systolic 84–131; BP diastolic 50–80; PULSE 125–132; RESP 17–18; TEMP 97.5; O2SAT 95–100
[2017-02-10] MEDS: METOPROLOL TARTRATE 5 MG/5 ML VIAL IV PUSH SCH ×5 (00:53→16:20)
[2017-02-10] MEDS: INSULIN NovoLIN REGULAR SUPPLEMENTAL SCALE SQ SCH ×5 (00:53→16:00)
[2017-02-10 04:59] LABS: BLOOD GAS BASE EXCESS 1.6 mmol/L (-2-2); BLOOD GAS CARBOXYHEMOGLOBIN 2.8 % (0-4); BLOOD GAS HCO3 26 mmol/L (22-26); BLOOD GAS METHEMOGLOBIN 0.9 % (0-2); BLOOD GAS O2 HGB SATURATION 94 % (90-100); BLOOD GAS OXYGEN CONTENT 11.6 Vol % (12.0-20.0); BLOOD GAS PCO2 43 mmHg (38-42); BLOOD GAS PO2 85 mmHg (61-120); BLOOD GAS TOTAL HGB 8.7 G/DL (12.0-16.0); CRITICAL VALUE NO; OXYGEN DEVICE VENTILATOR; TEMP CORR TO 98.6
[2017-02-10 05:00] LABS: DRAW SITE LT RADIAL; FIO2 35 %; NUMBER OF ARTERIAL PUNCTURES 1; VENT SETTINGS PRVC/AC
[2017-02-10 05:01] LABS: STAT NO
[2017-02-10 06:10] LABS: AUTOMATED NEUTROPHIL # 7.4 TH/MM3 (1.8-7.7); BASOPHIL % 0.1 % (0.0-2.0); EOSINOPHIL % 0.4 % (0.0-4.0); HEMATOCRIT 31.2 % (39.0-51.0); LYMPH % 14.4 % (9.0-44.0); LYMPHOCYTE # 1.3 TH/MM3 (1.0-4.8); MEAN CELL VOLUME 92.3 FL (80.0-100.0); MEAN CORPUSCULAR HGB CONC 31.4 % (32.0-36.0); MONO % 5.8 % (0.0-8.0); NEUT % 79.3 % (16.0-70.0); PLATELET COUNT 71 TH/MM3 (150-450); RED BLOOD COUNT 3.38 MIL/MM3 (4.50-5.90); RED CELL DISTRIBUTION WIDTH 17.2 % (11.6-17.2); WHITE BLOOD COUNT 9.3 TH/MM3 (4.0-11.0)
[2017-02-10 06:13] LABS: HEMO FLAGS AUTO DIFF
[2017-02-10 06:26] LABS: ALKALINE PHOSPHATASE 69 U/L (45-117); ALT (GPT) 47 U/L (12-78); ANION GAP 4 MEQ/L (5-15); AST (GOT) 23 U/L (15-37); BICARBONATE 29.8 MEQ/L (21.0-32.0); BLOOD UREA NITROGEN 47 MG/DL (7-18); CHLORIDE 110 MEQ/L (98-107); GLOMERULAR FILTRATION RATE 121 ML/MIN (>89); POTASSIUM 4.3 MEQ/L (3.5-5.1); SODIUM (NA) 144 MEQ/L (136-145); TOTAL BILIRUBIN ADULT 0.8 MG/DL (0.2-1.0)
--- NOTE | 2017-02-10 07:56 | HHI.CCPN ---
Subjective Remarks/Hospital Course The patient is a 61-year-old male with multiple comorbidities which include esophageal adenocarcinoma status post stent placement in December, coronary artery disease with previous stent placement in the proximal circumflex, squamous cell carcinoma of the skin and anemia and a history of atrial flutter. The patient presented to the [facility] Emergency Department [facility] a local [facility] for hypoxemia and severe respiratory distress. On arrival to the emergency room, the patient was hypotensive with a systolic blood pressure in the 80s, bradycardic with heart rate in the 50s and had a temperature of 97.6. Due to severe respiratory distress, he was subsequently intubated and placed on full mechanical ventilation. In addition, Versed drip was initiated. In the emergency room, the patient was found to have wide complex tachycardia and his laboratory data showed severe hyperkalemia with a potassium level of 6.9 and lactic acidosis with a lactic acid level of 12.5. The patient went into PEA arrest in the emergency room and he received epinephrine, bicarb with successful return of spontaneous circulation. He received approximately 1.5 liters of crystalloids and was started on Levophed drip which is currently 20 mics. For hyperkalemia, the patient was given 2 ampules of bicarb, calcium gluconate and 10 units of IV insulin D50 and placed on bicarb drip. A chest x-ray post- intubation showed ET tube above the elizabeth, bilateral pleural effusions with consolidation and atelectasis at the bases right greater than left. An ABG post intubation appears venous blood gas which showed a pH of 7.13, CO2 28, pAO2 44, bicarb of 9, saturation 53% with a base excess of -18.6. This was on assist control ventilation rate of 16, tidal volume 550, PEEP of 5 and 100% FIO2. The patient is scheduled for CT scan of the abdomen and pelvis along with CT scan of the chest. He was discharged from the hospital yesterday after he was admitted on December 24. On his previous admission, the patient had an Pseudomonas pneumoniae. In addition, he had MSSA bacteremia back in November. 02/01 Patient remains intubated with versed and Fentnayl drips. Levophed down 12 mics from 20 and on Vasopressin 0.04 mics. Lactic acid is trending down 2.9 this morning from 12.5 on arrival. On Bicarb drip. Afebrile. 02/02 No events overnight. Sedated with Versed and Fentanyl drips. Levophed down 6 mics and on Vasopressin 0.04. Renal function is improving with Cr: 1.17 from 1.86. Off Bicarb drip. 02/03 Patient was in SVT last night HR 204 given Adenosine 6mg+12mg then cardioverted with 50J now in NSR HR 70's. Sedated with Versed and Fentanyl drips. Given 2units PRBC overnight Hgb 9.2 this morning. Off all pressors. For EGD today. 02/04: Remains intubated sedated. Wakes up easily follows commands. Remains off all pressors platelet count decreasing 92 today. Hemoglobin stable. EGD esophageal mass/known Ca in the mid esophagus this was friable and when touched was oozing blood, an esophageal stent this was in good position and covering most of the mass but there is overgrowth more proximal to the stent does not appear to be occluding the esophagus 02/05: Afebrile. Minimal sedation. Hemoglobin remained stable. OG tube replaced by RN this AM. Failed CPAP trials after 2 minutes. 02/06: Resting comfortably in no acute distress. We'll attempt C Pap trial again today. Tube feeds not initiated. Resting comfortable in bed 02/07: Afebrile. Resting in bed. Failed PSV trial yesterday. Currently resting in bed in no distress. Subjective 02/08: Afebrile. Currently on PSV trial. Resting in bed in no acute distress. TPN initiated. Insulin drip initiated 02/09 Patient is sedated with Fentanyl, Versed and intubated. On Insulin drip 7u/ hr, TPN@75ml/hr. Afebrile. 02/10 Patient remains sedated and intubated. Off insulin drip remains on TPN. Afebrile. Palliative care is meeting with family today. Objective Vital Signs Date Time Temp Pulse Resp B/P (MAP) Pulse Ox O2 Delivery O2 Flow Rate FiO2 02/10/17 04:00 97.5 129 18 84/80 (81) 96 02/10/17 04:00 35 Result Diagram: 02/10/17 0416 02/10/17 0416 Other Results Laboratory Tests Test 02/09/17 16:51 02/10/17 04:16 02/10/17 04:50 White Blood Count 9.3 TH/MM3 Red Blood Count 3.38 MIL/MM3 Hemoglobin 9.8 GM/DL Hematocrit 31.2 % Mean Corpuscular Volume 92.3 FL Mean Corpuscular Hemoglobin 29.0 PG Mean Corpuscular Hemoglobin Concent 31.4 % Red Cell Distribution Width 17.2 % Platelet Count 71 TH/MM3 Mean Platelet Volume 10.0 FL Neutrophils (%) (Auto) 79.3 % Lymphocytes (%) (Auto) 14.4 % Monocytes (%) (Auto) 5.8 % Eosinophils (%) (Auto) 0.4 % Basophils (%) (Auto) 0.1 % Neutrophils # (Auto) 7.4 TH/MM3 Lymphocytes # (Auto) 1.3 TH/MM3 Monocytes # (Auto) 0.5 TH/MM3 Eosinophils # (Auto) 0.0 TH/MM3 Basophils # (Auto) 0.0 TH/MM3 CBC Comment AUTO DIFF Blood Urea Nitrogen 47 MG/DL Creatinine 0.67 MG/DL Random Glucose 314 MG/DL Total Protein 4.8 GM/DL Albumin 1.9 GM/DL Calcium Level 7.8 MG/DL Alkaline Phosphatase 69 U/L Aspartate Amino Transf (AST/SGOT) 23 U/L Alanine Aminotransferase (ALT/SGPT) 47 U/L Total Bilirubin 0.8 MG/DL Sodium Level 144 MEQ/L Potassium Level 4.3 MEQ/L Chloride Level 110 MEQ/L Carbon Dioxide Level 29.8 MEQ/L Anion Gap 4 MEQ/L Estimat Glomerular Filtration Rate 121 ML/MIN Blood Gas Puncture Site LT RADIAL Blood Gas Patient Temperature 98.6 Blood Gas HCO3 26 mmol/L Blood Gas Base Excess 1.6 mmol/L Blood Gas Oxygen Saturation 94 % Arterial Blood pH 7.40 Arterial Blood Partial Pressure CO2 43 mmHg Arterial Blood Partial Pressure O2 85 mmHg Arterial Blood Oxygen Content 11.6 Vol % Arterial Blood Carboxyhemoglobin 2.8 % Arterial Blood Methemoglobin 0.9 % Blood Gas Hemoglobin 8.7 G/DL Oxygen Delivery Device VENTILATOR Blood Gas Ventilator Setting PRVC/AC Blood Gas Inspired Oxygen 35 % Imaging Last Impressions Chest X-Ray 02/09/17 0600 Signed Impressions: Service Date/Time: Thursday, February 09, 2017 03:21 - CONCLUSION: 1. Bilateral mostly basilar airspace disease and small effusions. Small caliber right chest tube without pneumothorax. Kervin Krause MD Abdomen X-Ray 02/06/17 0000 Signed Impressions: Service Date/Time: Monday, February 06, 2017 14:37 - CONCLUSION: Benign abdomen. Negative for nasogastric tube Raudel Greenberg MD Liver Ultrasound 02/01/17 0000 Signed Impressions: Service Date/Time: Wednesday, February 01, 2017 16:32 - CONCLUSION: 1. Cirrhotic appearing liver with trace ascites in the pelvis. 2. Gallbladder wall thickening and mild pericholecystic fluid without gallstones. These findings are routinely seen in the setting of cirrhosis. If there is significant clinical concern regarding cholecystitis, HIDA scan may be performed. 3. Bilateral pleural effusions. Escobar Joiner MD Chest CT 01/31/17 0000 Signed Impressions: Service Date/Time: Tuesday, January 31, 2017 12:52 - CONCLUSION: 1. Moderate bilateral pleural effusions with associated bibasilar airspace consolidation. 2. Mild patchy airspace disease in the lingula and right middle lobe. 3. Diffuse soft tissue prominence of the mid to distal esophagus with esophageal stent in place consistent with history of esophageal CA. Administered contrast extends to the proximal esophagus. 4. ETT in good position. NGT just be in the GE junction. 5. Prominent coronary artery calcifications. Escobar Joiner MD Abdomen/Pelvis CT 01/31/17 0000 Signed Impressions: Service Date/Time: Tuesday, January 31, 2017 12:52 - CONCLUSION: 1. No definite CT findings to explain patient's lactic acidosis. Specifically, no evidence for bowel infarction or perforation. 2. Moderate bilateral pleural effusions with associated bilateral lower lobe airspace consolidation. 3. Diffusely prominent distal esophagus with distal esophageal stent in place. NGT courses through the stent with tip just beyond the GE junction. 4. Cirrhotic appearing liver without evidence for significant ascites or focal drainable fluid collection. Escobar Joiner MD Objective Remarks GENERAL: 61-year-old male, critically ill currently orotracheally intubated SKIN: Warm and dry. Positive sacral decubitus ulcer stage II HEAD: Normocephalic. EYES: No scleral icterus. No injection or drainage. NECK: Supple, trachea midline. No JVD or lymphadenopathy. CARDIOVASCULAR: Regular rate and rhythm without murmurs, gallops, or rubs. RESPIRATORY: Breath sounds equal bilaterally. Coarse rhonchi appreciated bilaterally. Right chest tube is clean dry and intact. -450 SS GASTROINTESTINAL: Abdomen soft, non-tender, nondistended. MUSCULOSKELETAL: 2+ bilateral lower extremity edema Neuro: Currently intubated and sedated. Positive gag. Positive corneal reflex. Date of Insertion: Feb 07, 2017 Line: PICC Side: Right Location: Antecubital A/P Assessment and Plan Plan Neuro/Psych: On Fentanyl drip at 150 grams an hour and midazolam drip at 5 mg an hour for sedation. Goal of RA SS -2 Daily sedation vacation. Pulm: Acute hypoxemic respiratory failure Right pleural effusion Continue with vent support and maintain saturations>92%. PRVC 18/500/05/22/34 Ventilator bundle, Albuterol/ipratropium aerosols every 4 hours with albuterol every 2 hours. hydrocortisone 50mg daily through 02/12 SBT daily as michael. CT chest: Moderate bilateral pleural effusions with associated bibasilar airspace consolidation. Mild patchy airspace disease in the lingula and right middle lobe. Esophageal CA. Right sided CT in place-monitor CT drainage( Drained 250ml in 24 hrs, transudative fluid) CV: Severe aortic regurgitation History of coronary disease status post stent circumflex Coronary artery disease Dyslipidemia Hypertension Monitor HR and BP keep MAP>65mmHg Patient went into SVT 02/02 night given Adenosine and was cardioverted with 50J now in NSR HR 70's. Okay to with ASA 81 mg daily and clopidogrel 75 mg daily- Discussed with Dr. Tejeda however unable to place tube through esophageal stent. On Aspirin 300 mg per rectum daily. Echo from 01/07 showed EF 60% to 65%. Echo 02/01 revealed EF 40-45%. Bilateral atrial enlargement. LVH. On Metoprolol 5 mg IV every [address] surgery for AVR. No plans for intervention at the present time Renal/: Monitor renal function, intakes and outputs and avoid nephrotoxins. Given 1L NS yesterday for tachycardic. 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 Gallbladder wall thickening and mild pericholecystic fluid without gallstone hepatitis profile : Hep C reactive ab. Genotype pending on pantoprazole 40 mg IV Q12 for GI prophylaxis. CT abdomen/pelvis: no bowel infarction or perforation. bilateral lower lobe airspace consolidation. Diffusely prominent distal esophagus with distal esophageal stent in place. EGD By Dr. Tejeda 02/03 esophageal Ca in the mid esophagus friable oozing blood, esophageal stent in good position and covering most of the mass but there is overgrowth more proximal to the stent does not appear to be occluding the esophagus TPN started 02/07 with PICC line placement ID; Off abx, ID is following. Monitor for signs of infections ( fever, WBC) WBC is trending down. Follow up on blood, sputum, urine cultures: NGTD Strep pneumoniae and Legionella urinary antigen negative. 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 S/P mohs surgery September 2015 Normocytic anemia Thrombocytopenia Status post parotidectomy and radical neck dissection in September 2016. Monitor CBC, s/p transfusion 2units PRBC 02/02 Oncology consulted ( patient known to him) patient is on chemo and XRT for his esophageal ca. not a candidate due to underlying critical illness Follow up on Hep PLT ab Endo: Diabetes mellitus Change SSI high scale with Accu-Chek q. 4 hours for glycemic control. On Levemir 30 units SQ BID, GI prophylaxis with pantoprazole 40 mg IV Q12 DVT prophylaxis with SCDs. No chemical prophylaxis due to anemia requiring blood transfusion and thrombocytopenia Lines: Right upper extremity PICC line 02/07 Palliative care is following of care. DNR status Palliative care meet with family today and they elected to transition to comfort care however they would like to transfer patient to hospice care center and proceed with withdrawal life support at the facility. Dixie Navarrete MD Feb 10, 2017 07:56
[2017-02-10] MEDS ORDERED: DEXTROSE 50% IN WATER 50 ML VIAL(D50) IV PUSH PRN ×2 (08:00→09:30)
[2017-02-10] MEDS ORDERED: MISC INFORMATION OTHER ONE (08:00)
[2017-02-10 08:15] LABS: PLATELET ESTIMATE SMEAR LOW (NORMAL); PLATELET MORPHOLOGY NORMAL (NORMAL); SCAN/DIFF AUTO DIFF CONFIRMED
[2017-02-10] MEDS ORDERED: DEXTROSE 50% IN WATER 50 ML SYRINGE IV PUSH PRN (08:15)
[2017-02-10] MEDS: PANTOPRAZOLE SODIUM 40 MG VIAL IV PUSH SCH (08:28)
[2017-02-10] MEDS: HYDROCORTISONE SOD SUCCINATE 100 MG VIAL IV PUSH SCH (08:28)
[2017-02-10] MEDS: DOCUSATE SODIUM 50 MG/SENNA 8.6 MG TAB PO SCH (08:32)
[2017-02-10] MEDS: SODIUM CHLORIDE 0.9% FLUSH 10 ML FLUSH IV FLUSH SCH (08:32)
[2017-02-10] MEDS: ASPIRIN 300 MG SUPP RECTAL SCH (08:32)
[2017-02-10] MEDS: COLLAGENASE OINT 30 GM TUBE TOPICAL SCH (08:32)
[2017-02-10] MEDS: CLOPIDOGREL 75 MG TAB PO SCH (08:32)
--- NOTE | 2017-02-10 08:59 | HHI.IDPN ---
Subjective Subjective Remarks Chart reviewed Patient known to me from his previous admissions He has known head and neck CA, and esophageal mass, S/P esophageal stent during his last hospitalization He was treated for high grade MSSA bacteremia, due to infected port Port removed and he completed Abx Rx with Ancef on Jan 15 He was also treated for PSAE PNA during his last admission He also had evidence of serositis and had pleural effusions and pericardial effusions that were both drained, C/S negative (but he was on Abx), cytology negative for malignancy He was D/C to SNF 01/30 and readmitted 01/31 Notes reviewed Temps ok Sedated on the vent A lot of output from his R chest tube Family meeting today - palliative medicine to discuss goals of care HR up Echo with multiple valvular insufficiency including severe AI Antibiotics cefepime - finished 02/07 Lines PIV Past Medical History Reviewed Allergies: Coded Allergies: penicillin G (Unverified Allergy, Mild, Hives, 12/30/16) Objective . Vital Signs Date Time Temp Pulse Resp B/P (MAP) Pulse Ox O2 Delivery O2 Flow Rate FiO2 02/10/17 08:49 99 35 02/10/17 04:00 97.5 129 18 84/80 (81) 96 02/10/17 04:00 129 02/10/17 04:00 35 02/10/17 03:55 98 35 02/10/17 02:00 125 02/10/17 00:27 100 35 02/10/17 00:00 125 02/10/17 00:00 35 02/10/17 00:00 97.5 126 18 92/50 (64) 95 02/09/17 22:00 125 02/09/17 20:10 99 35 02/09/17 20:00 97.0 129 18 95/53 (67) 96 02/09/17 20:00 35 02/09/17 20:00 125 02/09/17 20:00 35 02/09/17 20:00 35 02/09/17 18:00 129 02/09/17 16:12 99 35 02/09/17 16:00 98.4 125 18 111/57 (75) 100 02/09/17 16:00 35 02/09/17 16:00 129 02/09/17 14:00 130 02/09/17 12:00 99.0 130 18 87/50 (62) 100 9/25/17 12:00 130 02/09/17 12:00 35 02/09/17 10:00 125 02/09/17 09:45 35 . Laboratory Tests Test 02/09/17 04:10 02/10/17 04:16 White Blood Count 12.9 TH/MM3 9.3 TH/MM3 Red Blood Count 3.51 MIL/MM3 3.38 MIL/MM3 Hemoglobin 10.0 GM/DL 9.8 GM/DL Hematocrit 32.4 % 31.2 % Mean Corpuscular Volume 92.2 FL 92.3 FL Mean Corpuscular Hemoglobin 28.4 PG 29.0 PG Mean Corpuscular Hemoglobin Concent 30.8 % 31.4 % Red Cell Distribution Width 17.0 % 17.2 % Platelet Count 75 TH/MM3 71 TH/MM3 Mean Platelet Volume 9.7 FL 10.0 FL Neutrophils (%) (Auto) 84.7 % 79.3 % Lymphocytes (%) (Auto) 8.6 % 14.4 % Monocytes (%) (Auto) 6.6 % 5.8 % Eosinophils (%) (Auto) 0.0 % 0.4 % Basophils (%) (Auto) 0.1 % 0.1 % Neutrophils # (Auto) 10.9 TH/MM3 7.4 TH/MM3 Lymphocytes # (Auto) 1.1 TH/MM3 1.3 TH/MM3 Monocytes # (Auto) 0.9 TH/MM3 0.5 TH/MM3 Eosinophils # (Auto) 0.0 TH/MM3 0.0 TH/MM3 Basophils # (Auto) 0.0 TH/MM3 0.0 TH/MM3 CBC Comment AUTO DIFF AUTO DIFF Differential Comment AUTO DIFF CONFIRMED AUTO DIFF CONFIRMED Platelet Estimate LOW LOW Platelet Morphology Comment NORMAL NORMAL Ovalocytes 1+ Laboratory Tests Test 02/09/17 04:10 02/10/17 04:16 Blood Urea Nitrogen 60 MG/DL 47 MG/DL Creatinine 0.93 MG/DL 0.67 MG/DL Random Glucose 159 MG/DL 314 MG/DL Total Protein 5.3 GM/DL 4.8 GM/DL Albumin 2.1 GM/DL 1.9 GM/DL Calcium Level 7.9 MG/DL 7.8 MG/DL Phosphorus Level 2.6 MG/DL Magnesium Level 2.4 MG/DL Alkaline Phosphatase 75 U/L 69 U/L Aspartate Amino Transf (AST/SGOT) 27 U/L 23 U/L Alanine Aminotransferase (ALT/SGPT) 63 U/L 47 U/L Total Bilirubin 0.8 MG/DL 0.8 MG/DL Direct Bilirubin 0.4 MG/DL Sodium Level 143 MEQ/L 144 MEQ/L Potassium Level 4.3 MEQ/L 4.3 MEQ/L Chloride Level 109 MEQ/L 110 MEQ/L Carbon Dioxide Level 29.5 MEQ/L 29.8 MEQ/L Anion Gap 5 MEQ/L 4 MEQ/L Estimat Glomerular Filtration Rate 83 ML/MIN 121 ML/MIN Indirect Bilirubin 0.4 MG/DL Imaging Chest X-Ray 02/09/17 06 Signed Impressions: Service Date/Time: Thursday, February 09, 2017 03:21 - CONCLUSION: 1. Bilateral mostly basilar airspace disease and small effusions. Small caliber right chest tube without pneumothorax. Kervin Krause MD Chest X-Ray 02/06/17599 Signed Impressions: Service Date/Time: Monday, February 06, 2017 04:30 - CONCLUSION: 1. Persistent prominent consolidation left mid and lower lung. 2. No patchy infiltrates in the lower lateral right lung without consolidation. 3. Interval placement of gastric tube; cannot confirm that the tube passes into the stomach due to patient positioning and technical factors. Kulwant Gupta MD Chest X-Ray 02/05/17599 Signed Impressions: Service Date/Time: January 04:19 - CONCLUSION: 1. Bibasilar pulmonary infiltrates more pronounced on the left with a small effusion. These are unchanged. 2. Right thoracostomy tube without pneumothorax. 3. Mild cardiomegaly. Kulwant Cowart Jr., MD Chest X-Ray 02/04/17 Signed Impressions: Service Date/Time: Saturday, February 04, 2017 17:06 - CONCLUSION: Small bore chest tube in place with reduction in the amount of effusion. Everett Pollock MD FACR Chest X-Ray 02/04/17 Signed Impressions: Service Date/Time: Saturday, February 04, 2017 04:31 - CONCLUSION: Unchanged exam with bilateral pleural effusions and bibasilar pulmonary infiltrates. Kulwant Cowart Jr., MD Chest X-Ray 02/02/17 Signed Impressions: Service Date/Time: Thursday, February 02, 2017 07:55 - CONCLUSION: Slow interval improvement. Supportive apparatus good position. Everett Pollock MD FACR Liver Ultrasound 02/01/17 0000 Signed Impressions: Service Date/Time: Wednesday, February 01, 2017 16:32 - CONCLUSION: 1. Cirrhotic appearing liver with trace ascites in the pelvis. 2. Gallbladder wall thickening and mild pericholecystic fluid without gallstones. These findings are routinely seen in the setting of cirrhosis. If there is significant clinical concern regarding cholecystitis, HIDA scan may be performed. 3. Bilateral pleural effusions. Escobar Joiner MD Chest X-Ray 01/31/17 0828 Signed Impressions: Service Date/Time: Tuesday, January 31, 2017 10:37 - CONCLUSION: 1. ET tube in good position. 2. Clinically. 3. Bilateral pleural effusions with partial right. 4. Consolidation/atelectasis at the bases being worse on the right. Washington Chou MD Chest CT 01/31/17 0000 Signed Impressions: Service Date/Time: Tuesday, January 31, 2017 12:52 - CONCLUSION: 1. Moderate bilateral pleural effusions with associated bibasilar airspace consolidation. 2. Mild patchy airspace disease in the lingula and right middle lobe. 3. Diffuse soft tissue prominence of the mid to distal esophagus with esophageal stent in place consistent with history of esophageal CA. Administered contrast extends to the proximal esophagus. 4. ETT in good position. NGT just be in the GE junction. 5. Prominent coronary artery calcifications. Escobar Joiner MD Abdomen/Pelvis CT 01/31/17 0000 Signed Impressions: Service Date/Time: Tuesday, January 31, 2017 12:52 - CONCLUSION: 1. No definite CT findings to explain patient's lactic acidosis. Specifically, no evidence for bowel infarction or perforation. 2. Moderate bilateral pleural effusions with associated bilateral lower lobe airspace consolidation. 3. Diffusely prominent distal esophagus with distal esophageal stent in place. NGT courses through the stent with tip just beyond the GE junction. 4. Cirrhotic appearing liver without evidence for significant ascites or focal drainable fluid collection. Escobar Joiner MD Physical Exam GENERAL: Sedated, on the vent, not in distress SKIN: Warm and dry, no rash, edematous. No jaundice. No embolic lesions HEAD: Atraumatic. Normocephalic. EYES: Pupils equal and round and reactive. No petechia or hemorrhage. No scleral icterus. No injection or drainage. . ENT: Nose without bleeding or purulent drainage. Orally intubated. Dry mucosa NECK: Trachea midline. Supple, nontender. CARDIOVASCULAR: Tachycardic. Harsh systolic murmur at base RESPIRATORY/CHEST: Symmetric, respirations. Coarse BS bilaterally, with some rhonchi on L, decreased at bases. CT R with serosanguineous fluid GASTROINTESTINAL: Abdomen soft, non-tender, nondistended. . No guarding. Bowel sounds present. GENITOURINARY: Saxena catheter in place with yellow urine MUSCULOSKELETAL: Extremities without clubbing, cyanosis. Has edema of hands and feet, improving, but still significant. No mottling or clubbing. NEUROLOGICAL: Sedated PSYCHIATRIC: unable to assess LINE: No evidence of infection Assessment & Plan Remarks IMPRESSION Shock, sepsis, lactic acidosis, leukocytosis > 22K on presentation, resolved - his lactic acidemia improved - source? lung, UA with some pyuria Respiratory failure, ?PNA, plus CHF - sputum with normal adama - S/P Rx Cardiomyopathy with severe AI, mod MR and TR Recent Rx for MSSA sepsis Recent Rx PSAE PPNA Known head and neck CA Esophageal CA, S/P stent Recent workup for pleural and pericardial effusions, no malignancy, (+) inflammation PCN allery but tolerated Cephalosporins PLAN Monitor off Abx Monitor progress Palliative medicine evaluating goals of care - family meeting today Weaning per CCM as tolerated Monitor for S/Sxs of new infection Overall prognosis very poor Carola Nassar MD Feb 10, 2017 08:59
[2017-02-10] MEDS ORDERED: INSULIN REGULAR (IV INFUSION) 100 UNITS in SODIUM CHLORIDE 0.9% INJ 99 ML IV SCH (09:00)
[2017-02-10] MEDS ORDERED: INSULIN NovoLIN REGULAR SUPPLEMENTAL SCALE SQ SCH (09:30)
[2017-02-10] MEDS ORDERED: GLUCAGON 1 MG/ML VIAL OTHER PRN (09:30)
[2017-02-10] MEDS ORDERED: INSULIN DETEMIR 100 UNITS/ML VIAL SQ SCH (09:30)
[2017-02-10] MEDS: MIDAZOLAM 100 MG/100 ML INJ 100 ML IV PRN (11:57)
[2017-02-10] MEDS: ARTIFICIAL TEARS OPTH SOLN 15 ML BTL EACH EYE SCH (14:00)
--- NOTE | 2017-02-10 15:33 | HHI.HCPN ---
Reason for visit a. To assist with evaluation and management of symptoms including: Shortness of breath, Debility. b. To assist medical decision maker(s) with: better understanding of current medical conditions; weighing benefits/burdens of medical treatment options; making medical treatment decisions. . 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, diabetes mellitus type 2, CAD, dyslipidemia and hypertension. He was initially admitted to [place] 11/29/16 with abdominal pain, shortly after receiving a diagnosis of lower esophageal/upper stomach cancer at the GE junction, likely metastatic from left parotid cancer. He was found to have a friable esophageal mass which was found to be a source of bleeding. Per Dr. Tejeda's report, no further endoscopic interventions are available. He has remained intubated since 01/31 and continues to have dark brown drainage from his mouth when turned, suspicious for bleeding. Per my discussion with Dr. Yoder there is minimal chance that he can be extubated without significant bleeding and patient has declined tracheostomy multiple times. Given his poor prognosis, multiple comorbidities his healthcare surrogates, his daughter, Ben and long time radiation oncologist, Luly Bautista, have decided to transfer to hospice and have a compassionate withdrawal at the [facility]. As his sister is in route to [place], this will be scheduled for tomorrow afternoon. At the family's request we will arrange transfer to the hospice care center today as Ms. Bautista is disabled and lives close to that care center. This was discussed with Dr. Navarrete and Dr. Lewis who both agree with compassionate withdrawal. Exhibits have been signed by family and physicians and are on the chart. . . Family/friend interactions Met with daughterBen and reviewed medical course and options regarding esophageal mass, friability of tissue, risk of bleeding, progressive esophageal cancer. Provided supportive listening as she recalled events in patient's life. After reviewing all options, she agreed that compassionate withdrawal was in the patient's best interest and would be in keeping with his wishes. Subsequently met with Luly Bautista and reviewed medical course and options regarding esophageal mass, friability of tissue, risk of bleeding, progressive esophageal cancer. After reviewing all options she to agreed that compassionate withdrawal would be in keeping with the patient's wishes and would prefer to do the withdrawal at the hospice care center due to the close proximity to her home and her disability. Hospice consult was initiated and family was seen at bedside by hospice admission nurse, Rain who will arrange transfer. RN was updated as to plan. . Advance Directives Living Will: Copy in medical record Health Care Surrogate: Copy in medical record Durable Power of Access Services Librarian: Never completed Advance Directive Specifics Date completed: HCS completed 12/25/16 Living Will completed 01/07/17. . Health Care Surrogate(s): This information of healthcare surrogate and filed. Patient designated his daughter Ben La AND girlfriend Luly Bautista as HCS. . Documented care wishes: Patient electing that life/prolonging procedures be withheld or withdrawn in the setting of persistent vegetative state. Patient electing no tracheostomy. . Objective Vital Signs Date Time Temp Pulse Resp B/P (MAP) Pulse Ox O2 Delivery O2 Flow Rate FiO2 02/10/17 14:00 132 02/10/17 12:10 100 35 02/10/17 12:00 97.7 130 18 115/64 (81) 100 02/10/17 12:00 130 02/10/17 12:00 35 02/10/17 10:00 130 02/10/17 08:49 99 35 02/10/17 08:00 130 02/10/17 08:00 97.2 130 18 105/58 (74) 98 02/10/17 08:00 35 02/10/17 04:00 97.5 129 18 84/80 (81) 96 02/10/17 04:00 129 02/10/17 04:00 35 02/10/17 03:55 98 35 02/10/17 02:00 125 02/10/17 00:27 100 35 02/10/17 00:00 125 02/10/17 00:00 35 02/10/17 00:00 97.5 126 18 92/50 (64) 95 02/09/17 22:00 125 02/09/17 20:10 99 35 02/09/17 20:00 97.0 129 18 95/53 (67) 96 02/09/17 20:00 35 02/09/17 20:00 125 02/09/17 20:00 35 02/09/17 20:00 35 02/09/17 18:00 129 02/09/17 16:12 99 35 02/09/17 16:00 98.4 125 18 111/57 (75) 100 02/09/17 16:00 35 02/09/17 16:00 129 Intake & Output 02/10/17 02/10/17 07:00 19:00 Intake Total 2256 ml Output Total 1150 ml Balance 1106 ml IV Total 456 ml TPN/PPN 1800 ml Output Urine Total 1150 ml Physical Exam CONSTITUTIONAL/GENERAL: This is an ill looking male, who appears older than stated age in no acute distress. Intubated on mechanical ventilation, sedated. TUBES/LINES/DRAINS: ETT, NGT, right hand, right forearm PIV, Right femoral central line; Right femoral A line, right basilic PICC, right pigtail chest tube with moderate amount of serosanguineous output, (250mL) overnight. SKIN: No jaundice, rashes, or lesions. Ecchymoses on upper extremities. Skin tear to left lower extremity. Skin temperature appropriate. Not diaphoretic. NECK: Trachea midline. Supple, no JVD. CARDIOVASCULAR: Regular rhythm, tachycardic rate 1:30, 2/6 high-pitched systolic murmur. Pulses symmetric, decreased. RESPIRATORY/CHEST: Symmetric, unlabored respirations. Rhonchi throughout all lung ray. Right pigtail chest tube draining serous drainage. GASTROINTESTINAL: Abdomen soft, large, round. Hypoactive bowel sounds. GENITOURINARY: Without palpable bladder distension. Saxena catheter in place. MUSCULOSKELETAL: Extremities without clubbing, cyanosis. 1+ edema to all 4 extremities. NEUROLOGICAL: Sedated. Not following commands. PSYCHIATRIC: Sedated, not agitated. . Diagnostic Tests Laboratory Laboratory Tests Test 02/07/17 23:16 02/08/17 04:17 02/09/17 04:10 02/09/17 16:51 Prothrombin Time 16.4 SEC (9.8-11.6) Prothromb Time International Ratio 1.5 RATIO White Blood Count 7.4 TH/MM3 (4.0-11.0) 12.9 TH/MM3 (4.0-11.0) Red Blood Count 3.29 MIL/MM3 (4.50-5.90) 3.51 MIL/MM3 (4.50-5.90) Hemoglobin 9.6 GM/DL (13.0-17.0) 10.0 GM/DL (13.0-17.0) Hematocrit 30.6 % (39.0-51.0) 32.4 % (39.0-51.0) Mean Corpuscular Volume 93.1 FL (80.0-100.0) 92.2 FL (80.0-100.0) Mean Corpuscular Hemoglobin 29.2 PG (27.0-34.0) 28.4 PG (27.0-34.0) Mean Corpuscular Hemoglobin Concent 31.3 % (32.0-36.0) 30.8 % (32.0-36.0) Red Cell Distribution Width 17.8 % (11.6-17.2) 17.0 % (11.6-17.2) Platelet Count 76 TH/MM3 (150-450) 75 TH/MM3 (150-450) Mean Platelet Volume 10.0 FL (7.0-11.0) 9.7 FL (7.0-11.0) Blood Urea Nitrogen 54 MG/DL (7-18) 60 MG/DL (7-18) Creatinine 0.89 MG/DL (0.60-1.30) 0.93 MG/DL (0.60-1.30) Random Glucose 440 MG/DL (74-106) 159 MG/DL (74-106) Total Protein 5.2 GM/DL (6.4-8.2) 5.3 GM/DL (6.4-8.2) Albumin 2.1 GM/DL (3.4-5.0) 2.1 GM/DL (3.4-5.0) Calcium Level 7.9 MG/DL (8.5-10.1) 7.9 MG/DL (8.5-10.1) Phosphorus Level 2.3 MG/DL (2.5-4.9) 2.6 MG/DL (2.5-4.9) Magnesium Level 2.3 MG/DL (1.5-2.5) 2.4 MG/DL (1.5-2.5) Alkaline Phosphatase 65 U/L (45-117) 75 U/L (45-117) Aspartate Amino Transf (AST/SGOT) 22 U/L (15-37) 27 U/L (15-37) Alanine Aminotransferase (ALT/SGPT) 85 U/L (12-78) 63 U/L (12-78) Total Bilirubin 0.6 MG/DL (0.2-1.0) 0.8 MG/DL (0.2-1.0) Sodium Level 141 MEQ/L (136-145) 143 MEQ/L (136-145) Potassium Level 4.3 MEQ/L (3.5-5.1) 4.3 MEQ/L (3.5-5.1) Chloride Level 106 MEQ/L (98-107) 109 MEQ/L (98-107) Carbon Dioxide Level 30.0 MEQ/L (21.0-32.0) 29.5 MEQ/L (21.0-32.0) Anion Gap 5 MEQ/L (5-15) 5 MEQ/L (5-15) Estimat Glomerular Filtration Rate 87 ML/MIN (>89) 83 ML/MIN (>89) Neutrophils (%) (Auto) 84.7 % (16.0-70.0) Lymphocytes (%) (Auto) 8.6 % (9.0-44.0) Monocytes (%) (Auto) 6.6 % (0.0-8.0) Eosinophils (%) (Auto) 0.0 % (0.0-4.0) Basophils (%) (Auto) 0.1 % (0.0-2.0) Neutrophils # (Auto) 10.9 TH/MM3 (1.8-7.7) Lymphocytes # (Auto) 1.1 TH/MM3 (1.0-4.8) Monocytes # (Auto) 0.9 TH/MM3 (0-0.9) Eosinophils # (Auto) 0.0 TH/MM3 (0-0.4) Basophils # (Auto) 0.0 TH/MM3 (0-0.2) CBC Comment AUTO DIFF Differential Comment AUTO DIFF CONFIRMED Platelet Estimate LOW (NORMAL) Platelet Morphology Comment NORMAL (NORMAL) Ovalocytes 1+ (NORMAL) Direct Bilirubin 0.4 MG/DL (0.0-0.2) Indirect Bilirubin 0.4 MG/DL (0.0-0.8) Test 02/10/17 04:16 02/10/17 04:50 White Blood Count 9.3 TH/MM3 (4.0-11.0) Red Blood Count 3.38 MIL/MM3 (4.50-5.90) Hemoglobin 9.8 GM/DL (13.0-17.0) Hematocrit 31.2 % (39.0-51.0) Mean Corpuscular Volume 92.3 FL (80.0-100.0) Mean Corpuscular Hemoglobin 29.0 PG (27.0-34.0) Mean Corpuscular Hemoglobin Concent 31.4 % (32.0-36.0) Red Cell Distribution Width 17.2 % (11.6-17.2) Platelet Count 71 TH/MM3 (150-450) Mean Platelet Volume 10.0 FL (7.0-11.0) Neutrophils (%) (Auto) 79.3 % (16.0-70.0) Lymphocytes (%) (Auto) 14.4 % (9.0-44.0) Monocytes (%) (Auto) 5.8 % (0.0-8.0) Eosinophils (%) (Auto) 0.4 % (0.0-4.0) Basophils (%) (Auto) 0.1 % (0.0-2.0) Neutrophils # (Auto) 7.4 TH/MM3 (1.8-7.7) Lymphocytes # (Auto) 1.3 TH/MM3 (1.0-4.8) Monocytes # (Auto) 0.5 TH/MM3 (0-0.9) Eosinophils # (Auto) 0.0 TH/MM3 (0-0.4) Basophils # (Auto) 0.0 TH/MM3 (0-0.2) CBC Comment AUTO DIFF Differential Comment AUTO DIFF CONFIRMED Platelet Estimate LOW (NORMAL) Platelet Morphology Comment NORMAL (NORMAL) Blood Urea Nitrogen 47 MG/DL (7-18) Creatinine 0.67 MG/DL (0.60-1.30) Random Glucose 314 MG/DL (74-106) Total Protein 4.8 GM/DL (6.4-8.2) Albumin 1.9 GM/DL (3.4-5.0) Calcium Level 7.8 MG/DL (8.5-10.1) Alkaline Phosphatase 69 U/L (45-117) Aspartate Amino Transf (AST/SGOT) 23 U/L (15-37) Alanine Aminotransferase (ALT/SGPT) 47 U/L (12-78) Total Bilirubin 0.8 MG/DL (0.2-1.0) Sodium Level 144 MEQ/L (136-145) Potassium Level 4.3 MEQ/L (3.5-5.1) Chloride Level 110 MEQ/L (98-107) Carbon Dioxide Level 29.8 MEQ/L (21.0-32.0) Anion Gap 4 MEQ/L (5-15) Estimat Glomerular Filtration Rate 121 ML/MIN (>89) Blood Gas Puncture Site LT RADIAL Blood Gas Patient Temperature 98.6 Blood Gas HCO3 26 mmol/L (22-26) Blood Gas Base Excess 1.6 mmol/L (-2-2) Blood Gas Oxygen Saturation 94 % (90-100) Arterial Blood pH 7.40 (7.380-7.420) Arterial Blood Partial Pressure CO2 43 mmHg (38-42) Arterial Blood Partial Pressure O2 85 mmHg (61-120) Arterial Blood Oxygen Content 11.6 Vol % (12.0-20.0) Arterial Blood Carboxyhemoglobin 2.8 % (0-4) Arterial Blood Methemoglobin 0.9 % (0-2) Blood Gas Hemoglobin 8.7 G/DL (12.0-16.0) Oxygen Delivery Device VENTILATOR Blood Gas Ventilator Setting PRVC/AC Blood Gas Inspired Oxygen 35 % . Result Diagram: 02/10/17 0416 02/10/17 0416 Microbiology Microbiology Date/Time Source Procedure Growth Status 01/31/17 08:35 Blood Peripheral Aerobic Blood Culture - Final NO GROWTH IN 5 DAYS Complete 01/31/17 08:35 Blood Peripheral Anaerobic Blood Culture - Final NO GROWTH IN 5 DAYS Complete 02/04/17 16:45 Fluid Pleural Fluid Fungal Smear - Final NO FUNGAL ELEMENTS SEEN. Resulted 02/04/17 16:45 Fluid Pleural Fluid Fungal Culture Pending Resulted 01/31/17 21:40 Sputum Endotracheal Gram Stain - Final Complete 01/31/17 21:40 Sputum Endotracheal Sputum Culture - Final HEAVY GROWTH NORMAL RESPIRATORY EDE Complete 01/31/17 13:35 Urine Catheterized Urine Legionella Antigen - Final PRESUMPTIVE NEGATIVE FOR LEGIONELLA P... Complete 01/31/17 13:35 Urine Catheterized Urine Streptococcus pneumoniae Antigen (M - Final PRESUMPTIVE NEGATIVE FOR STREPTOCOCCU... Complete . Imaging Last Impressions Chest X-Ray 02/09/17 0600 Signed Impressions: Service Date/Time: Thursday, February 09, 2017 03:21 - CONCLUSION: 1. Bilateral mostly basilar airspace disease and small effusions. Small caliber right chest tube without pneumothorax. Kervin Krause MD Abdomen X-Ray 02/06/17 0000 Signed Impressions: Service Date/Time: Monday, February 06, 2017 14:37 - CONCLUSION: Benign abdomen. Negative for nasogastric tube Raudel Greenberg MD Liver Ultrasound 02/01/17 0000 Signed Impressions: Service Date/Time: Wednesday, February 01, 2017 16:32 - CONCLUSION: 1. Cirrhotic appearing liver with trace ascites in the pelvis. 2. Gallbladder wall thickening and mild pericholecystic fluid without gallstones. These findings are routinely seen in the setting of cirrhosis. If there is significant clinical concern regarding cholecystitis, HIDA scan may be performed. 3. Bilateral pleural effusions. Escobar Joiner MD Chest CT 01/31/17 0000 Signed Impressions: Service Date/Time: Tuesday, January 31, 2017 12:52 - CONCLUSION: 1. Moderate bilateral pleural effusions with associated bibasilar airspace consolidation. 2. Mild patchy airspace disease in the lingula and right middle lobe. 3. Diffuse soft tissue prominence of the mid to distal esophagus with esophageal stent in place consistent with history of esophageal CA. Administered contrast extends to the proximal esophagus. 4. ETT in good position. NGT just be in the GE junction. 5. Prominent coronary artery calcifications. Escobar Joiner MD Abdomen/Pelvis CT 01/31/17 0000 Signed Impressions: Service Date/Time: Tuesday, January 31, 2017 12:52 - CONCLUSION: 1. No definite CT findings to explain patient's lactic acidosis. Specifically, no evidence for bowel infarction or perforation. 2. Moderate bilateral pleural effusions with associated bilateral lower lobe airspace consolidation. 3. Diffusely prominent distal esophagus with distal esophageal stent in place. NGT courses through the stent with tip just beyond the GE junction. 4. Cirrhotic appearing liver without evidence for significant ascites or focal drainable fluid collection. Escobar Joiner MD . Procedures 02/04/17 -right pigtail chest tube 02/03/17 -EGD 02/02/17 Intubated 02/02/17 Right femoral central line placement 02/02/17 Right femoral Arterial line . Assessment and Plan Disease Oriented Problem List: (1) Septic shock (2) PEA (Pulseless electrical activity) (3) Respiratory failure (4) Esophageal carcinoma (5) Acute kidney injury (6) Edema (7) Physical deconditioning (8) Anemia Symptom Scale: (1) Shortness of breath 0-10 Scale: Unable to quantify Comment: Intubated on mechanical ventilation. (2) Pain 0-10 Scale: Unable to quantify Comment: Multifactorial. Currently on fentanyl drip. (3) Debility 0-10 Scale: Unable to quantify Comment: Progressive. Pertinent Non-Medical Issues Psychosocial: Mr La is a 61-year-old male who was born in [place], [place]. Patient moved to [place] at the age of 15. He never attended high school after he moved to [place] nor obtained his GED. 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 Patient worked a lot with chemicals in [employer]. No service. Patient is , has 1 daughter. Patient residing with girlfriend Luly Bautista for the past 40 years. Spiritual: No rastafarian affiliation. Legal: Advance directives completed. Copy in file. Ethical issues impacting care: Patient unable to participate in medical decision making given clinical condition, intubated/sedated. . Important Contacts Daughter -Ben La Significant other Luly Bautista or . . 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, diabetes mellitus type 2, CAD, dyslipidemia and hypertension. Patient presented to the ED via EMS 02/02/17 from a halfway for shortness of breath and weakness. Patient sustained PEA arrest, underwent CPR and ACLS drugs with ROS, subsequently intubated and placed on mechanical ventilation. Patient was recently discharged from the [facility] on 01/30/17 after hospitalization x 2 months. During hospitalization, his clinical course was complicated by NSTEMI, patient underwent PCI with bare metal stents on 11/30/16. Clinical course further complicated by persistent fever, MSSA bacteremia, worsening sepsis, A. fib with RVR and persistent respiratory failure, intubation and mechanical ventilation x3 times, pericardial effusion requiring pericardiocentesis and pleural effusion with chest tube placement. Patient's overall prognosis is poor given multiple chronic ongoing comorbidities, recent prolonged hospitalization x 2 months with multiple complications, malignancy, malnutrition, most recent PEA arrest and profound physical deconditioning. Patient remains at very high risk for further complications, continued decline and . . Code Status: No Code Plan * CODE STATUS: DNR per my discussion with both healthcare surrogates. Plan for compassionate withdrawal tomorrow after patient's sister arrives. * [facility] CARE SURROGATE: Patient unable to participate in medical decision making, given clinical condition, intubated/sedated. Designation of healthcare surrogate completed during prior hospitalization. Patient designated his daughter Ben La AND significant other Luly Bautista as healthcare surrogate decision maker. * GOALS OF CARE: Goals of care has now transitioned to comfort. Family wishes to take the weekend absorbs this new information and determine further course. Family meeting today to determine goals of care is. After discussion with both healthcare surrogates, each independently affirmed that the patient would not wish to live intubated and given his current medical situation they agree that compassionate vent withdrawal would be consistent with the patient's wishes and they believe it is the right thing to do. SYMPTOMS: * Shortness of breath - multifactorial. Currently intubated on mechanical ventilation. Plan for vent withdrawal at [facility] 02/11. He is at risk for dyspnea and air hunger due to extubation and potential bleeding. Medication orders per Dr. Wills. * Pain - secondary to ET tube, lines, bedrest, restraints, recent prolonged hospitalization. Currently on fentanyl and versed drips for pain control and sedation. These will be discontinued upon discharge and he will receive transitional medications per Dr. Wills's order for care center transfer. * Debility - secondary to chronic comorbidities, acute events, present prolonged hospitalization. Pending discharge to hospice care center for compassionate vent withdrawal. * Case discussed with bedside RN Damon. * Spiritual services offered and accepted. Referral made. * Ongoing emotional support and active listening provided to patient's significant other Luly and daughter Ben. They are cooperating well together for decision-making. * Patient to be transferred to hospice services today. . Time Spent >50% Counseling/Coord of Care: Yes Attestation To help prompt me to consider important information that might be impacting today's encounter and assessment, information from prior notes written by myself or my colleagues may have been "brought forward" into today's note. My signature on this note, however, is an attestation that I personally performed the exam, history, and/or decision-making noted today, and, unless otherwise indicated, the interactions with patient, family, and staff as well as the review of records all occurred today. I also attest that the listed assessment and stated plan reflect my best clinical judgment today based on the combination of historical information, prior notes, and today's exam/ interactions. When time spent is documented, it refers only to time spent today by the signer, or if indicated, combined time spent today by collaborating physician/nurse practitioner. Betty Galindo Feb 10, 2017 3:33 pm
[2017-02-10] MEDS ORDERED: MORPHINE SULFATE 8 MG/ML INJ IV PUSH ONE ×2 (16:45→18:00)
[2017-02-10 17:02] LABS: HEPARIN AB OD 0.268 O.D. (0.000-0.300); HEPARIN INDUCED PLATELET AB NEGATIVE (NEGATIVE)
[2017-02-10] MEDS ORDERED: LORazepam 2 MG/ML VIAL IV ONE (18:00)
== END 2017-02-10 18:25 | disposition hospice, inpatient (51) | DRG 870 ==
LOC: NEPC 08:11 → NEDA 10:45 → HIMW 13:10
PROVIDERS: ADMIT Internal Medicine Critical Care Medicine; ATTEND Internal Medicine Critical Care Medicine
PROC: 5A1955Z Respiratory Ventilation, Greater than 96 Consecutive Hours (ICD-10-PCS; principal; 2017-01-31)
PROC: 04HY32Z Insertion of Monitoring Device into Lower Artery, Percutaneous Approach (ICD-10-PCS; 2017-01-31)
PROC: 0BH17EZ Insertion of Endotracheal Airway into Trachea, Via Natural or Artificial Opening (ICD-10-PCS; 2017-01-31)
PROC: 06HM33Z Insertion of Infusion Device into Right Femoral Vein, Percutaneous Approach (ICD-10-PCS; 2017-01-31)
PROC: 30233N1 Transfusion of Nonautologous Red Blood Cells into Peripheral Vein, Percutaneous Approach (ICD-10-PCS; 2017-01-31)
PROC: 5A2204Z Restoration of Cardiac Rhythm, Single (ICD-10-PCS; 2017-02-03)
PROC: 0DJ08ZZ Inspection of Upper Intestinal Tract, Via Natural or Artificial Opening Endoscopic (ICD-10-PCS; 2017-02-03)
PROC: 0W9930Z Drainage of Right Pleural Cavity with Drainage Device, Percutaneous Approach (ICD-10-PCS; 2017-02-04)
DX: A41.9 Sepsis, unspecified organism (principal); J96.01 Acute respiratory failure with hypoxia; R65.21 Severe sepsis with septic shock; I46.9 Cardiac arrest, cause unspecified; J18.9 Pneumonia, unspecified organism; J90 Pleural effusion, not elsewhere classified; J44.0 Chronic obstructive pulmonary disease with (acute) lower respiratory infection; N17.9 Acute kidney failure, unspecified; C15.9 Malignant neoplasm of esophagus, unspecified; E87.2 Acidosis; L89.154 Pressure ulcer of sacral region, stage 4; E87.1 Hypo-osmolality and hyponatremia; I47.1 Supraventricular tachycardia; I48.92 Unspecified atrial flutter; D68.9 Coagulation defect, unspecified; I42.9 Cardiomyopathy, unspecified; E46 Unspecified protein-calorie malnutrition; K92.2 Gastrointestinal hemorrhage, unspecified; D64.9 Anemia, unspecified; I25.10 Atherosclerotic heart disease of native coronary artery without angina pectoris; E87.5 Hyperkalemia; I25.2 Old myocardial infarction; D69.6 Thrombocytopenia, unspecified; I48.91 Unspecified atrial fibrillation; E78.5 Hyperlipidemia, unspecified; I08.3 Combined rheumatic disorders of mitral, aortic and tricuspid valves; I11.0 Hypertensive heart disease with heart failure; I50.9 Heart failure, unspecified; E11.9 Type 2 diabetes mellitus without complications; I27.2 Other secondary pulmonary hypertension; Z51.5 Encounter for palliative care; Y95 Nosocomial condition; Z85.828 Personal history of other malignant neoplasm of skin; Z87.891 Personal history of nicotine dependence; Z95.5 Presence of coronary angioplasty implant and graft; Z85.89 Personal history of malignant neoplasm of other organs and systems; Z79.84 Long term (current) use of oral hypoglycemic drugs; Z88.0 Allergy status to penicillin
CPT/HCPCS: 31500; 32551; 36430; 36556; 36569; 36600; 71010; 71250; 74000; 74176; 76705; 76937; 80048; 80053; 80074; 80076; 80202; 81001; 82150; 82533; 82550; 82805; 82945; 82948; 83605; 83615; 83735; 83986; 84100; 84132; 84157; 84478; 84484; 85007; 85014; 85018; 85025; 85027; 85610; 85730; 86022; 86850; 86900; 86901; 86920; 87015; 87040; 87070; 87086; 87102; 87116; 87205; 87206; 87449; 87522; 87641; 87902; 88112; 89051; 92950; 93005; 93306; 94002; 94003; 94640; 94664; 96361; 96365; 96375; C9113; J0153; J0171; J0330; J0610; J0692; J1642; J1644; J1720; J1815; J1817; J1956; J2060; J2212; J2248; J2250; J3010; J3370; J7030; J7040; J7042; J7070; J7613; P9016; P9047; Q9963